=== PATIENT | female | born 1940 | race Caucasian/White ===

== ENCOUNTER 2017-10-02 19:21 | Emergency (ER) | payer MEDICARE, OTHER, SELFPAY ==
[2017-10-02 19:25] VITALS: BP 166/79; PULSE 84; RESP 16; TEMP 36.6; O2SAT 99; BMI 22.8
--- NOTE | 2017-10-02 19:54 | ED.RN ---
RN CALLED FOR EKG, NO OLD EKG'S IN MUSE
--- NOTE | 2017-10-02 19:58 | EKG12_ITS ---
Test Reason : JAW Blood Pressure : / mmHG Vent. Rate : 083 BPM Atrial Rate : 083 BPM P-R Int : 150 ms QRS Dur : 082 ms QT Int : 364 ms P-R-T Axes : 045 -07 019 degrees QTc Int : 427 ms Normal sinus rhythm Normal ECG Confirmed by PRATIBHA GOMEZ ([id number]), marketing editor TE SALDANA ([id number]) on 10/06/2017 10:18:07 AM Referred By: THA Confirmed By:PRATIBHA GOMEZ
--- NOTE | 2017-10-02 19:58 | RAD_ITS ---
STUDY: X-RAY CHEST REASON FOR EXAM: Female, 77 years old. Right-sided neck, ear, and jaw pain since Friday night TECHNIQUE: PA and lateral views of the chest. COMPARISON: None. FINDINGS: monitoring analyst leads are present. The lungs are clear and expanded. There is no demonstrated pleural abnormality. Normal size heart. Normal mediastinum and alli. Normal visualized pulmonary arteries. There are calcified plaques of the thoracic aorta. The bones are osteopenic. There is an increased thoracic kyphosis. There is diffuse thoracic endplate spondylosis. Normal visualized ribs, clavicles, and shoulders. There is no demonstrated abnormality of the visualized soft tissue structures of the upper abdomen. RAD/Chest PA and Lateral IMPRESSION: Calcified plaques of the thoracic aorta. Generalized osteopenia. Diffuse endplate spondylosis of the thoracic spine. Increased thoracic kyphosis. No acute cardiopulmonary disease process is seen. Electronically Signed: Kahlil Gibbs MD at 20:45 EDT , Service support ,
--- NOTE | 2017-10-02 20:01 | ED.DCSUM_ITS ---
- ER Visit Summary Date of Service: 10/02/17 Chief Complaint: Jaw pain History of Present Illness: The patient is a 77 F who states that on Friday she woke with a right-sided jaw/neck pain. Slightly worse with movement. Worse with opening and closing her jaw. She states the family notified her that this could be sign of a heart attack and wanted her evaluated. She denies any chest pain or shortness of breath. No sweating. She notes pain in the jaw line on the right with chewing. she notes some discomfort up in the shoulder but states that is chronic for her. No radicular symptoms. Physical Examination: Afebrile vital signs are stable Gen: Well-nourished well-developed Head: Normocephalic atraumatic Eyes: Perrl EOMI ENT: TMs clear no rhinorrhea moist mucous membranes Neck: Supple no lymphadenopathy no JVD mild tenderness palpation along the right trapezius CVS: Regular rate rhythm no murmurs normal S1-S2 Respiratory: No distress clear to auscultation bilaterally chest nontender Abdomen: Soft nontender nondistended normal bowel sounds no masses Back: Nontender Extremity: Nontender no edema Skin: Normal color no rash Neuro: alert orientated ?3 CN II-XII intact normal strength sensation reflexes gait cerebellar Psych: Normal affect normal mood Test Results: EKG shows a normal sinus rhythm at a rate of 83. CBC chemistries and troponin initially negative except for BUN of 21 creatinine 1.19. Chest x- ray negative C-spine films no acute. Emergency Department Course and Treatment: I believe this to be muscle skeletal nature. Patient will be discharged home follow-up with her doctors. Impression: 1. Jaw pain This note was generated with [employer] dictation software. It may contain incorrect words, spelling, and punctuation that were not noted in review of the chart prior to signing ED Disposition - Plan for ED Patient: Disposition: Home or Assisted Living Chief Complaint: Other, Pain/Inj Instructions: ED TMJ Syndrome Additional Instructions: Please call in the morning to arrange follow-up with your doctor.
[2017-10-02 20:24] LABS: Absolute Lymphocyte Count 1.33 X10^3/ul (0.83-4.51); Absolute Neutrophil Count 2.3 X10^3/uL (2.0-7.7); Basophil# 0.06 X10^3/uL; Basophil% 1.3 % (0-1); Eosinophil# 0.16 X10^3/uL; Eosinophils% 3.6 % (0-5); Hematocrit 35.5 % (37-47); Lymphocyte # 1.33 X10^3/ul (4.0); Lymphocyte % 29.7 % (19-41); Mean Corpuscular Hgb 29.9 pg (27.0-32.0); Mean Corpuscular Volume 96.5 fL (81-99); Mean Platelet Vol. 8.5 fl (6.2-12.0); Monocyte# 0.61 X10^3/uL; Monocyte% 13.6 % (0-10); Neutrophil # 2.32 X10^3/uL (2.7-7.7); Neutrophil % 51.8 % (47-70); Platelet Count 375 K/mm3 (150-450); RBC Distribution Width CV 13.3 % (11.6-14.6); RBC Distribution Width SD 46.4 fl (35.1-43.9); Red Blood Count 3.68 M/mm3 (4.2-5.4); White Blood Count 4.5 K/mm3 (4.4-11.0)
--- NOTE | 2017-10-02 20:25 | RAD_ITS ---
STUDY: X-RAY - CERVICAL SPINE REASON FOR EXAM: Female, 77 years old. Right-sided neck pain TECHNIQUE: 6 view(s) of the cervical spine were obtained. COMPARISON: None FINDINGS: Normal anterior atlantoaxial articulation. Normal odontoid process. Normal cervical lordosis. Normal vertebral bodies and endplates. Normal disc space heights. The soft tissue structures are unremarkable. RAD/Cerv Spine 2 or 3 Views IMPRESSION: Normal x-ray examination of the visualized cervical spine. Electronically Signed: Kahlil Gibbs MD at 20:44 EDT , Service support ,
[2017-10-02 20:26] LABS: POSITIVE COUNT NO; POSITIVE DIFFERENTIAL NO; POSITIVE MORPHOLOGY NO
[2017-10-02 20:40] LABS: Anion Gap 3 (5-15); BUN 29 mg/dL (7-18); BUN/Creat Ratio 24.4 RATIO (10-20); Calcium,Total 9.9 mg/dL (8.5-10.1); Chloride 103 mmol/L (98-107); Creatinine, Serum 1.19 mg/dL (0.55-1.02); EST Glomerular Filtration Rate 46 mL/min (>60); Est Glom Filt Rate - Afr Amer 56 mL/min (>60); Estimated Creatinine Clearance 28.93 ml/min; Glucose 105 mg/dL (74-106); Potassium 4.8 mmol/L (3.5-5.1); Sodium Level 138 mmol/L (136-145)
[2017-10-02 21:52] VITALS: BP 119/90; PULSE 80; RESP 16; O2SAT 98
== END 2017-10-02 21:53 | disposition home or self-care (01) ==
PROVIDERS: Emergency Provider Emergency Medicine; Family Provider Physician Assistant; PCP Physician Assistant
DX: R68.84 Jaw pain (principal); M54.2 Cervicalgia; I10 Essential (primary) hypertension; M19.90 Unspecified osteoarthritis, unspecified site; Z87.19 Personal history of other diseases of the digestive system
CPT/HCPCS: 71046; 72040; 80048; 84484; 85025; 93005; 99285; A4216

== ENCOUNTER 2018-09-24 12:49 | Emergency (ER) | payer MEDICARE, SELFPAY ==
[2018-09-24 12:50] VITALS: BP 138/67; PULSE 89; RESP 16; TEMP 36.6; O2SAT 97; BMI 23.4
--- NOTE | 2018-09-24 14:32 | ED.DCSUM_ITS ---
- ER Visit Summary Date of Service: 09/24/18 Chief Complaint: UTI History of Present Illness: The patient is a 78 F here for a UTI. The patient was diagnosed on September 19. This showed Enterococcus faecalis which was sensitive to ampicillin and Macrobid. The patient was treated with Macrobid. She started treatment several days ago. Patient developed a rash later the same day after starting Macrobid. She says that she had a rash on her legs and trunk. Non- itchy and nonpainful. No fevers or systemic symptoms. Patient followed up with urgent care because of the rash. Advised that she would need to go to the hospital because of the antibiotic resistance and her presumed allergy. Physical Examination: Afebrile and vital signs unremarkable. Patient alert and oriented. No acute distress. Heart regular. Lungs clear. Abdomen soft. Lower extremities show petechial rash. Otherwise mucous membranes and conjunctive are normal. Skin is otherwise unremarkable. Test Results: None performed Emergency Department Course and Treatment: Culture was reviewed. It showed Enterococcus faecalis which was sensitive to Macrobid, vancomycin, and penicillin. I spoke with infectious disease. They advised treatment with amoxicillin at outpatient follow-up for the UTI. Regarding the rash, the patient is not on blood thinners. She does not have any other symptoms. The timing coincides with starting the antibiotic. She will discontinue the antibiotic. I advised that other things can cause this type of rash, and if she has any new or worsening issues, she should be evaluated. Patient declined any testing here today and would like to follow-up as an outpatient. Treatment Plan: As above Disposition: Discharge Impression: 1. UTI cystitis This note was generated with [employer] dictation software. It may contain incorrect words, spelling, and punctuation that were not noted in review of the chart prior to signing ED Disposition - Plan for ED Patient: Referrals: Jose G Harrington PA [Primary Care Provider] -
--- NOTE | 2018-09-24 14:32 | ED.DEP ---
ED Disposition - Plan for ED Patient: Instructions: ED UTI Cystitis Female Prescriptions: Amoxicillin 500 mg PO BID #17 tab Referrals: Jose G Harrington PA [Primary Care Provider] -
[2018-09-24 14:38] VITALS: BP 135/74; PULSE 68; RESP 15; O2SAT 98
== END 2018-09-24 14:40 | disposition home or self-care (01) ==
LOC: ED 14:19
PROVIDERS: Emergency Provider Emergency Medicine; Family Provider Physician Assistant; PCP Physician Assistant
DX: N30.90 Cystitis, unspecified without hematuria (principal); R21 Rash and other nonspecific skin eruption; Z79.82 Long term (current) use of aspirin; Z79.899 Other long term (current) drug therapy
CPT/HCPCS: 99283

== ENCOUNTER 2020-05-12 14:51 | Outpatient (RCR) | payer MEDICARE, SELFPAY | END 2020-05-12 23:59 | LOC: IMMUN 14:51 | PROVIDERS: PCP Physician Assistant; Referring Provider Family Medicine; Visit Provider Family Medicine | DX: Z23 Encounter for immunization (principal) | CPT/HCPCS: 0011A; 0012A; 91301 ==

== ENCOUNTER 2021-06-04 14:41 | Emergency (ER) | payer MEDICARE, SELFPAY ==
[2021-06-04 14:42] VITALS: BP 207/106; PULSE 83; RESP 17; TEMP 37.1; O2SAT 97; BMI 22.4
--- NOTE | 2021-06-04 14:50 | RAD_ITS ---
STUDY: X-RAY - LEFT SHOULDER REASON FOR EXAM: Female, 81 years old. FALL TECHNIQUE: 4 view(s) of the shoulder. COMPARISON: None. FINDINGS: Normal glenohumeral articulation. There is hypertrophic osteoarthrosis of the acromioclavicular joint with inferior osseous spur formation. Normal acromion. Normal humeral head and visualized proximal humerus. Decreased distance between the humeral head and the acromion suggestive of rotator cuff pathology. The soft tissue structures are unremarkable. Normal visualized pulmonary apex. RAD/Shoulder min 2 Views IMPRESSION: Hypertrophic osteoarthritis of the acromioclavicular joint especially in the undersurface of the acromion. Decreased distance between the acromion and humeral head suggestive of a rotator cuff pathology. Electronically Signed: Tobin José MD at 15:31 EST ,
--- NOTE | 2021-06-04 15:49 | CT_ITS ---
HISTORY: FALL, HEAD INJURY. TECHNIQUE: Multiple axial images were obtained of the brain without intravenous contrast. A radiation dose optimization technique was used for this scan. # of images incl. paperwork: 242. COMPARISON: None. FINDINGS: BRAIN PARENCHYMA:Multiple small foci and zones of low attenuation in the cerebral white matter most compatible with chronic small vessel ischemic gliosis. INTRACRANIAL HEMORRHAGE: No acute intracranial hemorrhage. CSF SPACES/MASS EFFECT: Diffuse atrophy with compensatory ventricular enlargement. No midline shift or other significant mass effect. ORBITS: Bilateral lens resections. CALVARIUM: Intact. Moderate left frontal scalp hematoma. PARANASAL SINUSES AND MASTOID AIR CELLS: Clear. CT/Brain/Head without Contrast IMPRESSION: No acute intracranial process identified. Chronic small vessel ischemic gliosis. Left frontal scalp hematoma. Individualized dose optimization techniques were used for this CT. at 1644 Reported and signed by: Ava Esqueda MD Electronically Signed: Ava Esqueda MD at 16:43 EST ,
--- NOTE | 2021-06-04 16:42 | EX.ED.GENINJ ---
HPI History of Present Illness Chief Complaint: Fall Detail of Chief Complaint: Blunt head trauma and left shoulder pain status post fall Informant: patient Onset/Context/Timing Onset: Today and Hours Mechanism/Context: Blunt Injury and Fall Location of pain/injuries: Left shoulder Location: Left-sided forehead and left shoulder Current Severity: Mild Maximum Severity: Moderate Worsened by: Shoulder pain is worse with movement Relieved by: ED adducted and internally rotated Associated Symptoms Associated Symptoms: Positive for Loss of function; Negative for Parasthesias, Weakness, Inability to ambulate, Loss of consciousness and Amnesia Length of loss of consciousness: Dazed Narrative Narrative: 1-year-old woman who presents after mechanical fall. She was walking with her girlfriend around the neighborhood. A bug flew into her face. She swatted at the bug. She states she lost her balance. She landed on her left side. She presents because of forehead contusion and left shoulder pain. She was dazed. She denies headache. She denies double vision, blurred vision or loss of vision. Denies ringing or ears decreased hearing. Denies neck pain. She denies paresthesia, anesthesia motors. She denies cardiac respiratory symptoms. Denies abdominal pain. She denies nausea or vomiting. She is not on anticoagulant. She is on a baby aspirin a day. She denies hematuria. Tetanus Immunization: 5-10 years Prior similar symptoms: No Recent Illness/Hospitalization: No PFSH PFSH Home Medications amoxicillin 500 mg PO BID #17 tab 09/24/18 [Rx Last Taken Unknown] aspirin 81 mg PO DAILY@0800 09/24/18 [History Last Taken Unknown] etodolac [Lodine] 400 mg PO BID 09/24/18 [History Last Taken Unknown] nitrofurantoin monohyd/m-cryst 100 ng PO BID 09/24/18 [History Last Taken Unknown] hydrocodone-acetaminophen 1 tab PO Q6H PRN PRN 3 Days #10 tablet 06/04/21 [Rx Last Taken Unknown] Allergy/AdvReac Type Severity Reaction Status Date / Time nitrofurantoin Allergy Rash Verified 09/24/18 12:50 [From Macrobid] Social History (Updated 06/04/21 @ 16:[address] Mookie Almonte MD) household members: none Smoking Status: Never smoker substance use type: does not use ROS ROS ED Constitutional Constitutional ED: Denies chills, fever(s), subjective, sweats or weight loss Eyes Eyes: Denies blurry vision or change in vision ENT ENT ED: Denies ear pain, rhinorrhea or sore throat Cardiovascular Cardiovascular: Denies chest pain, palpitations or racing heartbeat Respiratory/Chest Respiratory/Chest: Denies cough, dyspnea or dyspnea on exertion Gastrointestinal Gastrointestinal: Denies abdominal pain, nausea or vomiting Genitourinary Genitourinary ED: Denies dysuria or hematuria Musculoskeletal Musculoskeletal: Reports other Details: Left shoulder pain ; Denies arthralgias, back pain, myalgias or neck pain Integumentary Reports other Details: Lesion left forehead ; Denies Abrasions or rash Neurologic Neurologic: Denies headache(s), paresthesias or weakness Endocrine Endocrinology: Denies polydipsia, polyphagia or polyuria Hematologic/Lymphatic Hematologic/Lymphatic: Denies easy bleeding or easy bruising EXAM Physical Exam Const Vital Signs: 06/04/21 14:42 Temperature 98.7 F Temperature Source Temporal Pulse Rate 83 Respiratory Rate 17 Blood Pressure 207/106 H Blood Pressure Mean 139 Pulse Ox 97 Oxygen Delivery Method Room Air Positive well nourished and well developed General Appearance ED: well developed and NAD HEENT Reports TM's clear HEENT Narrative: Ears normal. No septal deviation hematoma. No dental pathology. No evidence of malocclusion. trauma and tenderness Nose: Negative for septum abnormal Tympanic Membrane ED: Yes TM's clear Eyes PERRL and EOMs intact bilaterally General Eye ED: Yes other Other Details: There is no subconjunctival hemorrhage noted. Neck full ROM General: Negative for tenderness Resp normal respiratory effort and clear to auscultation bilaterally Cardio regular rhythm, S1 normal heart sound, S2 normal heart sound and no murmurs Rate: regular rate GI normal to inspection, nondistended, normoactive bowel sounds Palpation: soft and rebound tenderness present Back/Spine normal to inspection and no thoracic nor lumbar tenderness General Back: Negative for CVA tenderness Thoracic Spine / Upper Back: thoracic spinal tenderness Extremity Negative for full ROM Extremity Narrative: Patient is able to AB duct to approximately 40 degrees on the left side. Axillary, median, radial and ulnar function intact. Bicep, brachialis tricep reflex are 2+ and symmetric. General Extremety ED: Yes tenderness Neuro oriented x3, CN's II-XII intact bilaterally and no focal motor deficits Neuro Narrative: Negative clonus or Babinski sign. Sensorium / Orientation: alert Plantar Reflex: Downgoing: bilateral Psych mental status grossly normal and thought process normal Skin no rashes or lesions noted and No no wounds Skin Narrative: Contusion forehead MDM MDM MDM Narrative Medical decision making narrative: Since the patient is greater than 81 years old dazed per the [place] CT head rule imaging required to rule out intracranial bleed. CT of the head reveals no evidence of intracranial bleed i.e. subdural, epidural, subarachnoid hemorrhage or contusion. There is no skull fracture. There is no fluid noted in the sinuses. X-ray of the left shoulder reveals significant arthropathy with no obvious fracture. The interpretation by radiology was noted. Clinically patient has a rotator cuff tear. Radiography Diagnostic Testing: Clinical Impression(s) from Imaging Studies Shoulder X-Ray 06/04/21 14:50 IMPRESSION: Hypertrophic osteoarthritis of the acromioclavicular joint especially in the undersurface of the acromion. Decreased distance between the acromion and humeral head suggestive of a rotator cuff pathology. 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 Prescriptions: New hydrocodone-acetaminophen [hydrocodone-acetaminophen] 1 TABLET tablet 1 tab PO Q6H PRN PRN (Reason: Pain) 3 Days Qty: 10 RF: 0 No Action aspirin 81 MG tablet,chewable 81 mg PO DAILY@0800 RF: 0 etodolac [Lodine] 400 MG tablet 400 mg PO BID RF: 0 nitrofurantoin monohyd/m-cryst 100 capsule 100 ng PO BID RF: 0 amoxicillin 500 MG tablet 500 mg PO BID Qty: 17 RF: 0 Primary Care Provider: Jose G Harrington Referrals: Suresh Edwards MD [NON-STAFF] - As soon as possible (Clinically patient has a complete rotator cuff tear) Jose G Harrington PA [Primary Care Provider] - Disposition Disposition: Home, Self Care
[2021-06-04 17:15] VITALS: RESP 16
--- NOTE | 2021-06-05 12:10 | CASEMGMT ---
JESIKA SHEPARD ED follow-up: Date of ER visit: 06/04/2021 Presenting ER complaint: Fall JESIKA SHEPARD placed call to patient's telephone number listed on demographics and patient answered. JESIKA SHEPARD introduced self and role at [facility]. Patient reports a little sore but pain not bad today and taking prescription medication as directed. Patient reports she is walking okay and actually feels better when up and moving versus when she is at rest and sitting. Patient lives alone but states she has friends and children who are looking after her. Follow-up appointment scheduled for 06/07, per patient. Patient instructed on ice use and voices understanding. Patient denies questions or concerns and expressed appreciation for follow-up call. JESIKA Lemus CM
== END 2021-06-04 17:56 | disposition home or self-care (01) ==
PROVIDERS: Emergency Provider Emergency Medicine; PCP Physician Assistant; Visit Provider Emergency Medicine
DX: S00.03XA Contusion of scalp, initial encounter (principal); S06.9X9A Unspecified intracranial injury with loss of consciousness of unspecified duration, initial encounter; M75.122 Complete rotator cuff tear or rupture of left shoulder, not specified as traumatic; W19.XXXA Unspecified fall, initial encounter; Y93.01 Activity, walking, marching and hiking; Z79.82 Long term (current) use of aspirin; Z79.899 Other long term (current) drug therapy
CPT/HCPCS: 70450; 73030; 99282

== ENCOUNTER 2022-04-07 20:57 | Emergency (ER) | payer MEDICARE, SELFPAY ==
[2022-04-07 20:57] VITALS: BP 181/105; PULSE 78; RESP 14; TEMP 36.6; O2SAT 98; BMI 23.0
--- NOTE | 2022-04-07 21:09 | CT_ITS ---
STUDY: CT BRAIN WITHOUT CONTRAST REASON FOR EXAM: Female, 82 years old. head trauma RADIATION DOSAGE (If Supplied By Facility): CTDIvol = ( 44.99 ) mGy, DLP = ( 812.98 ) mGycm TECHNIQUE: Transaxial CT imaging of the brain was performed without administration of intravenous contrast material. Individualized dose optimization techniques were used for this CT. COMPARISON: CT brain noncontrast 06/04/2021 FINDINGS: Normal soft tissue structures. Normal calvarium. Normal size ventricles x-ray and extra-axial spaces for the patient''s age. There are areas of decreased attenuation within the white matter tracts of the supratentorial brain, consistent with microvascular disease changes. Normal basal ganglia and thalami. Normal brainstem. Normal cerebellum. There is no intracranial hemorrhage. There are no findings of an acute ischemic infarction. Normal visualized paranasal sinuses. The bilateral mastoid air cells and ossicles are unopacified. Intracranial arteriosclerosis of the carotid, basilar and vertebral arteries. CT/Brain/Head without Contrast IMPRESSION: Chronic involutional changes of the brain. There is no acute intracranial pathology. There is no significant interval change. Electronically Signed: Maria Guadalupe Ulloa MD at 21:38 EST Reading Location ID and State: , Service support ,
--- NOTE | 2022-04-07 21:10 | EDS_ITS ---
HPI HPI - Fall History of Present Illness Chief Complaint: Fall Detail of Chief Complaint: Fall with head injury. 10 minutes of confusion since resolved. Informant: patient and family Occured/Mechanism Occurred: Today and Hours Mechanism/Context: Yes slip Usually ambulates: Without assistance Pain/Injury Pain Location: head Current Severity: Mild Maximum Severity: Mild Associated Symptoms Associated Symptoms: Negative for Parasthesias, Weakness, Loss of function, Inability to ambulate, Loss of consciousness or Amnesia Narrative Narrative: 82-year-old female currently on aspirin no significant past medical history. Was at her son's today. Was going up steps she had slippers on did not sit for a while since she slipped fell backwards up 1 step hit her head on the floor. Son states she was not knocked out. But she was confused for about 10 minutes. That is since resolved. She denies any significant headache. She denies any neck pain. She denies any other injuries. She has not vomited. She is on no other blood thinners besides aspirin. Prior similar symptoms: Yes Recent Illness/Hospitalization: No PFSH PFSH Medical History (Updated 04/07/22 @ 22:[address] Jumana Thompson MD) CKD (chronic kidney disease), stage III Fe deficiency anemia Osteoarthritis Medical History no medical history no medical history Home Medications amoxicillin 500 mg tablet 500 mg PO BID #17 tabs 09/24/18 [Rx Last Taken Unknown] aspirin 81 mg chewable tablet 81 mg PO DAILY@0800 09/24/18 [History Last Taken Unknown] etodolac 400 mg tablet (Lodine) 400 mg PO BID 09/24/18 [History Last Taken Unknown] nitrofurantoin monohydrate/macrocrystals 100 mg capsule 100 ng PO BID 09/24/18 [History Last Taken Unknown] hydrocodone-acetaminophen 5-325mg 5mg-325mg 1 tab PO Q6H PRN PRN Pain 3 days #10 TABLETS 06/04/21 [Rx Last Taken Unknown] Allergy/AdvReac Type Severity Reaction Status Date / Time nitrofurantoin Allergy Rash Verified 04/07/22 21:00 [From Macrobid] Surgical History (Updated 04/07/22 @ 21:25 by Sarabjit Bee) Hx of tonsillectomy Social History (Updated 04/07/22 @ 22:[address] Jumana Thompson MD) household members: none Smoking Status: Never smoker alcohol intake: never substance use type: does not use ROS ROS ED ROS Narrative No recent illness. Review of Systems ROS Unobtainable: Denies due to encephalopathy Constitutional Constitutional ED: Denies chills or fever(s) Eyes Eyes: Denies blurry vision ENT ENT ED: Denies ear pain Cardiovascular Cardiovascular: Denies chest pain Respiratory/Chest Respiratory/Chest: Denies cough or dyspnea Gastrointestinal Gastrointestinal: Denies abdominal pain Genitourinary Genitourinary ED: Denies dysuria or hematuria Musculoskeletal Musculoskeletal: Denies arthralgias Integumentary Denies abscess Neurologic Neurologic: Denies headache(s) Psychiatric Psychiatric: Denies anxiety Endocrine Endocrinology: Denies polydipsia Hematologic/Lymphatic Hematologic/Lymphatic: Denies easy bleeding Allergic/Immunologic Allergic/Immunologic ED: Denies mouth swelling or tongue swelling EXAM Physical Exam Narrative Exam Narrative: 82-year-old female no acute distress. Vital signs are stable afebrile. Pulse ox 98% on room air no signs hypoxia. She does not look septic or toxic nor dehydrated. She is awake and alert. H EENT exam pupils round reactive light his motions are intact. Pupils are about 2 mm bilaterally. No facial trauma. Scalp nontender. No hematoma. No laceration. C-spine nontender. Normal range of motion her neck. Trachea midline. Back and spine nontender. No signs of trauma. Lungs clear equal and symmetrical. Heart appears to be tachycardic and irregular.. Chest wall and ribs nontender. Abdomen soft nontender. Pelvic girdle intact. Moving all 4 extremities. Normal web offset press feeder strength. Normal dorsi plantar flexion. Normal range of motion. No deformities. Nontender. Neuro logically she is awake and alert. Answering questions and following commands. Currently neurologically her GCS is 15. She knows the holiday, month and year. She knows where she is at. She is acting normally. Const Vital Signs: 04/07/22 20:57 04/07/22 21:24 04/07/22 22:17 Temperature 97.8 F Temperature Source Temporal Pulse Rate 78 123 H Respiratory Rate 14 15 Respiratory Effort Normal Respiratory Depth Normal Respiratory Pattern Normal Blood Pressure 181/105 H 153/70 H Blood Pressure Mean 130 97 Pulse Ox 98 98 Oxygen Delivery Method Room Air Room Air Room Air 04/07/22 22:17 Temperature Temperature Source Pulse Rate Respiratory Rate Respiratory Effort Respiratory Depth Respiratory Pattern Blood Pressure Blood Pressure Mean Pulse Ox 95 Oxygen Delivery Method Room Air Positive well nourished and well developed; Negative for obese, cachectic, contractures or unkempt General Appearance ED: well developed and NAD; Negative for unkempt, cachectic or contractures Nutritional Appearance: Negative for cachectic or obese HEENT Reports normocephalic trauma; Negative for atraumatic, hematoma or tenderness Eyes PERRL and EOMs intact bilaterally General Eye ED: Negative for pale conjunctiva or scleral icterus Neck full ROM, no lymphadenopathy and supple General: Negative for tenderness Chest Wall inspection of chest normal and palpation of chest normal Chest: Negative for other Resp normal respiratory effort, no retractions and clear to auscultation bilaterally Effort and Inspection: Negative for pain with movement Auscultation: Negative for rales, rhonchi or wheezes Cardio S1 normal heart sound, S2 normal heart sound and no murmurs; Negative for regular rate or regular rhythm Cardio Narrative: Tachycardic and irregular. No history of A. fib. Rate: tachycardic; Negative for bradycardia Rhythm: Negative for abnormal rhythm GI non-tender, non-distended and no masses Inspection: Negative for abdominal distention Auscultation: normoactive bowel sounds Palpation: soft; Negative for guarding Back/Spine no CVA tenderness General Back: Negative for CVA tenderness Cervical Spine: Negative for cervical spine tenderness Thoracic Spine / Upper Back: Negative for ROM limited Lumbar Spine / Lower Back: Negative for lumbar spinal tenderness or paraspinal muscle tenderness Neuro oriented x3, CN's II-XII intact bilaterally, moves all extremities and no focal motor deficits Paul Coma Scale: document GCS findings Spontaneous Obeys Commands Oriented 15 Sensorium / Orientation: alert, oriented to person, oriented to place and oriented to time; Negative for orientation impaired, confused, lethargic or stuporous Motor Exam: strength 5/5 throughout Psych mental status grossly normal and thought process normal Appearance: Negative for unkempt Attitude: No agitated Mood & Affect: Negative for depressed, anxious or tearful Skin Lesions: no lesions Rashes: no rashes Trauma: Negative for abrasion, laceration or puncture MDM MDM MDM Narrative Medical decision making narrative: 82-year-old fell hit her head had about 10-minute episode of confusion per her son. Her neurologic exam currently is normal with a GCS of 15. She is awake and alert. Given her age fall and head trauma I will obtain a CAT scan of her brain. Her exam is unremarkable at this time. Questionable dysrhythmia on cardiac exam obtain an EKG. With the patient's EKG showed A. fib RVR I discussed with her and her son. She has no history of A. fib. She will have a cardiac work-up. She will be given IV Cardizem 20 mg. This appears to be new onset A. fib. Repeat exam at 10:40 PM patient spontaneously converted. She is in a sinus rhythm at about 86. Patient is doing well awake and alert. No complaints. I discussed all of her test results with her and her son at bedside. They understand a new diagnosis of A. fib. She will be discharged home to follow-up with her primary care provider that is physician assistant professor of art, Adal Harrington, with the [facility]. Lab Data Attestation: I reviewed the patient's lab results. Lab results narrative: CBC unremarkable white count 9. H&H [address] Platelets [address] of the brain showed chronic changes no acute bleed. Chemistry is unremarkable. Gap of 5. BUN and creatinine 19 and 1. Glucose 133. Troponin normal at 16. TSH is normal at 1.5. Labs: Laboratory Results - last 24 hr 04/07/22 04/07/22 21:55 21:55 WBC 9.5 RBC 4.16 L Hgb 13.6 Hct 40.7 MCV 97.8 MCH 32.7 H MCHC 33.4 RDW Std Deviation 44.9 H RDW Coeff of Dalton 12.4 Plt Count 305 MPV 8.6 Immature Gran % (Auto) 0.300 Neut % (Auto) 74.4 H Lymph % (Auto) 14.7 L [place] % (Auto) 7.6 Eos % (Auto) 1.9 Baso % (Auto) 1.1 H Absolute Neuts (auto) 7.1 Absolute Lymphs (auto) 1.40 Nucleated RBC % 0 Sodium 142 Potassium 3.9 Chloride 107 Carbon Dioxide 30.0 Anion Gap 5 BUN 19 H Creatinine 1.01 Estim Creat Clear Calc 29.78 Est GFR (MDRD) Af Amer 67 Est GFR (MDRD) Non-Af 56 L BUN/Creatinine Ratio 18.8 Glucose 133 H Calcium 8.9 Troponin I High Sens 16 TSH 1.51 Radiography Diagnostic Testing: Clinical Impression(s) from Imaging Studies Brain CT 04/07/22 21:09 IMPRESSION: Chronic involutional changes of the brain. There is no acute intracranial pathology. There is no significant interval change. Electronically Signed: Maria Guadalupe Ulloa MD at 21:38 EST Reading Location ID and State: , Service support , Rhythm Strip Rhythm Strip: A-fib Rate: 152 Ectopy: None EKG Initial EKG: Attestation: I personally reviewed and interpreted this EKG as follows: Interpretation: Atrial Fibrillation Comments: A. fib with RVR with a rate of 152. No acute signs of [place]. Discharge Plan Triage Chief Complaint: Fall ED Provider: Ricki Reyes Dx/Rx/DC Orders Clinical Impression: Fall, Concussion, Atrial fibrillation, new onset Instructions: ED AFIB, ED Concussion Prescriptions: No Action aspirin 81 MG tablet,chewable 81 mg PO DAILY@0800 etodolac [Lodine] 400 MG tablet 400 mg PO BID nitrofurantoin monohyd/m-cryst 100 capsule 100 ng PO BID amoxicillin 500 MG tablet 500 mg PO BID Qty: 17 0RF hydrocodone-acetaminophen [hydrocodone-acetaminophen] 1 TABLET tablet 1 tab PO Q6H PRN PRN (Reason: Pain) 3 Days Qty: 10 0RF Primary Care Provider: Jose G Harrington Referrals: Jose G Harrington PA [Primary Care Provider] - 3-5 Days if not improving Activity Restrictions/Additional Instructions: Ice to scalp if you have any swelling. Hold your daily aspirin the next 2 days. Then you can restart it. Tylenol for pain. Return if severe headache, vomiting or not acting herself. Follow-up with your primary care provider for the diagnosis of new onset atrial fibrillation. Disposition Disposition: Home, Self Care
--- NOTE | 2022-04-07 22:00 | RAD_ITS ---
STUDY: X-RAY CHEST REASON FOR EXAM: Female, 82 years old. chest pain TECHNIQUE: Single AP portable view of the chest. COMPARISON: 10/02/2017 FINDINGS: There are superimposed monitor leads. The lungs are clear and expanded. There is no demonstrated pleural abnormality. Normal size heart. Normal mediastinum and alli. Normal visualized pulmonary arteries. There is atherosclerotic calcification of the aortic arch with tortuosity. There is demineralization of the osseous structures. There is degenerative osteoarthritis of the bilateral shoulders. There is no demonstrated abnormality of the visualized soft tissue structures of the upper abdomen. RAD/Chest 1 View (Portable) IMPRESSION: No acute cardiopulmonary disease. No significant interval change. Electronically Signed: Maria Guadalupe Ulloa MD at 23:00 EST Reading Location ID and State: , Service support ,
[2022-04-07 22:09] LABS: Absolute Neutrophil Count 7.1 X10^3/uL (2.0-7.7); Basophil% 1.1 % (0-1); Eosinophil# 0.18 X10^3/uL; Eosinophils% 1.9 % (0-5); Hematocrit 40.7 % (37-47); Hemoglobin 13.6 g/dL (12.0-15.0); Lymphocyte % 14.7 % (19-41); Mean Corp Hgb Conc 33.4 g/dL (32-36); Mean Corpuscular Hgb 32.7 pg (27.0-32.0); Mean Corpuscular Volume 97.8 fL (81-99); Mean Platelet Vol. 8.6 fl (6.2-12.0); Monocyte# 0.72 X10^3/uL; Monocyte% 7.6 % (0-10); NRBC Flagged by Analyzer 0 % (0-5); Neutrophil # 7.08 X10^3/uL (2.7-7.7); Neutrophil % 74.4 % (47-70); Platelet Count 305 K/mm3 (150-450); RBC Distribution Width CV 12.4 % (11.6-14.6); RBC Distribution Width SD 44.9 fl (35.1-43.9); Red Blood Count 4.16 M/mm3 (4.2-5.4); White Blood Count 9.5 K/mm3 (4.4-11.0)
[2022-04-07] MEDS: dilTIAZem 25 MG/5 ML Vial 20 MG IV BOLUS (22:14)
[2022-04-07 22:17] VITALS: BP 153/70; PULSE 123; RESP 15; O2SAT 95; O2SAT 98
[2022-04-07 22:35] LABS: Anion Gap 5 (5-15); BUN 19 mg/dL (7-18); BUN/Creat Ratio 18.8 RATIO (10-20); Calcium,Total 8.9 mg/dL (8.5-10.1); Chloride 107 mmol/L (98-107); Creatinine, Serum 1.01 mg/dL (0.55-1.02); EST Glomerular Filtration Rate 56 mL/min (>60); Est Glom Filt Rate - Afr Amer 67 mL/min (>60); Estimated Creatinine Clearance 29.78 ml/min; Glucose 133 mg/dL (74-106); Potassium 3.9 mmol/L (3.5-5.1); Sodium Level 142 mmol/L (136-145); Thyroid Stim Hormone (TSH) 1.51 uIU/mL (0.358-3.74); Troponin-I HS 16 pg/mL (3.0-54.0)
[2022-04-07 23:20] VITALS: BP 135/73; PULSE 83; RESP 15; O2SAT 98
== END 2022-04-07 23:21 | disposition home or self-care (01) ==
PROVIDERS: Emergency Provider Emergency Medicine; PCP Physician Assistant; Visit Provider Emergency Medicine
DX: S06.0X0A Concussion without loss of consciousness, initial encounter (principal); I48.91 Unspecified atrial fibrillation; N18.30 Chronic kidney disease, stage 3 unspecified; R41.0 Disorientation, unspecified; D50.9 Iron deficiency anemia, unspecified; M19.90 Unspecified osteoarthritis, unspecified site; W10.9XXA Fall (on) (from) unspecified stairs and steps, initial encounter; Z79.82 Long term (current) use of aspirin; Z79.899 Other long term (current) drug therapy
CPT/HCPCS: 70450; 71045; 80048; 84443; 84484; 85025; 93005; 96374; 99284; A4216

== ENCOUNTER 2024-08-16 15:40 | Emergency (ER) | payer MEDICARE, SELFPAY ==
[2024-08-16] VITALS (7 sets, daily range): BP systolic 151–186; BP diastolic 72–104; PULSE 67–97; RESP 14–18; TEMP 36.2–36.6; O2SAT 95–100; BMI 23.1
--- NOTE | 2024-08-16 17:06 | CT_ITS ---
PROCEDURE: CT BRAIN WITHOUT CONTRAST REASON FOR EXAM: ALTERED LEVEL OF CONSCIOUSNESS. TECHNIQUE: Head CT without intravenous contrast. Coronal and Sagittal reconstruction series were provided. One or more dose reduction techniques were used (e.g., Automated exposure control, adjustment of the mA and/or kV according to patient size, use of iterative reconstruction technique. RADIATION DOSE SUMMARY: DLP: 796.11 mGycm COMPARISON: 04/07/2022 FINDINGS: Cerebrum: No intraparenchymal hemorrhage. No abnormal areas of encephalomalacia. No mass effect or midline shift. Central white matter and subcortical diffuse hypoattenuation. Ventricles and cisterns: Appropriate size for patient's age. Age-appropriate senescent change. Extra-axial fluid: Unremarkable. Posterior fossa: Cerebellar atrophic changes. No hemorrhage. Paranasal sinuses: Normal. Vasculature: Vertebrobasilar atherosclerotic calcific disease. Atherosclerotic calcific disease of the carotid siphons. Mastoid air cells: unremarkable. Calvarium: Unremarkable. Soft tissues: Unremarkable. . CT/Brain/Head without Contrast IMPRESSION: 1. No acute intracranial abnormalities. 2. Chronic age-related microvascular ischemic changes. 3. Age-related senescent changes. 4. Atherosclerotic calcific disease. Reading Location: [facility]
--- NOTE | 2024-08-16 17:07 | EKG12_ITS ---
Test Reason : Blood Pressure : */* mmHG Vent. Rate : 100 BPM Atrial Rate : * BPM P-R Int : * ms QRS Dur : 76 ms QT Int : 340 ms P-R-T Axes : * -9 8 degrees QTcB Int : 438 ms Atrial fibrillation Abnormal ECG Confirmed by Swapnil Balderrama ([id number]), editorial cartoonist LOVELY RAMSEY ([id number]) on 08/20/2024 11:54:05 AM Referred By: TABBY Confirmed By: Swapnil Balderrama
--- NOTE | 2024-08-16 17:08 | EX.ED.DYSGE1 ---
HPI History of Present Illness Chief Complaint: Confusion Informant: patient and family Onset/Context/Timing Onset: Today Context: Gradual Onset Timing: Continuous Current Severity: Mild Maximum Severity: Mild Narrative Narrative: 84-year-old female history of chronic kidney disease, UTIs and hypertension. Per the family today she had brain fog. She seemed confused and slightly disoriented. She was at the store when she came home she could not use the keypad to get her garage. Denies any falls or head trauma. No headache. No recent illness. Denies nausea, vomiting, diarrhea or fever. No recent dysuria. She has had episodes of confusion before that this is more pronounced. Prior similar symptoms: Yes Recent Illness/Hospitalization: No PFSH PFSH Medical History Osteoarthritis CKD (chronic kidney disease), stage III Fe deficiency anemia Home Medications ?Medication ?Instructions ?Recorded ?Last Taken ?Type lisinopril 30 mg tablet 30 mg PO DAILY 08/16/24 08/16/24 History multivitamin (Daily Multi-Vitamin 1 tab PO DAILY 08/16/24 08/16/24 History tablet) Allergy/AdvReac Type Severity Reaction Status Date / Time nitrofurantoin (From Allergy Rash Verified 08/16/24 15:42 Macrobid) Surgical History Hx of tonsillectomy Social History household members: none Smoking Status: Never smoker alcohol intake: never substance use type: does not use ROS ROS ED ROS Narrative Denies recent illness. Constitutional Constitutional ED: Denies chills or fever(s) Eyes Eyes: Denies blurry vision ENT ENT ED: Denies ear pain Cardiovascular Cardiovascular: Denies chest pain Respiratory/Chest Respiratory/Chest: Denies cough or dyspnea Gastrointestinal Gastrointestinal: Denies abdominal pain Genitourinary Genitourinary ED: Denies dysuria or hematuria Musculoskeletal Musculoskeletal: Denies arthralgias Integumentary Denies abscess Psychiatric Psychiatric: Denies anxiety Endocrine Endocrinology: Denies cold intolerance Hematologic/Lymphatic Hematologic/Lymphatic: Reports none Allergic/Immunologic Allergic/Immunologic ED: Denies mouth swelling, tongue swelling or urticaria EXAM Physical Exam Narrative Exam Narrative: 84-year-old female vital signs are stable afebrile. She does not look septic toxic she is in no distress. Son and I believe [id number] are sitting at bedside. Pulse ox 100% on room air no signs hypoxia. H EENT exam pupils round reactive light. Mytrex membranes. No trauma to her face or head. No facial droop. Normal speech. Neck nontender. Lungs clear to auscultation bilateral. Heart A-fib rate about 90. Chest wall and ribs nontender. Abdomen soft nontender. Moving all 4 extremities. Calves are nontender without edema or cords. Normal digital x ray service engineer strength. Normal dorsi and plantarflexion. Fingertip to nose within normal limits. No drift of upper or lower extremities. Neurologically she is awake alert. Answering questions and following commands. NIH 0. She knew month, year, president and she knows she is in the hospital. Const Vital Signs: 08/16/24 15:42 08/16/24 16:56 08/16/24 17:00 Temperature 97.2 F L Temperature Source Temporal Pulse Rate 91 67 85 Respiratory Rate 18 14 16 Blood Pressure 164/104 H Blood Pressure Mean 124 Pulse Ox 100 95 Oxygen Delivery Method Room Air Room Air 08/16/24 18:00 08/16/24 19:00 08/16/24 20:00 Temperature Temperature Source Pulse Rate 97 93 Respiratory Rate 18 18 Blood Pressure 186/99 H 151/93 H 164/89 H Blood Pressure Mean 128 112 114 Pulse Ox 97 96 Oxygen Delivery Method Room Air Room Air Positive well nourished and well developed; Negative for obese, cachectic, contractures or unkempt General Appearance ED: well developed and NAD; Negative for unkempt, cachectic, contractures, cyanotic, diaphoretic or pallor Nutritional Appearance: Negative for cachectic or obese HEENT Reports moist mucous membranes; Denies dry mucous membranes Negative for trauma or tenderness Mouth ED: No dry mucous membranes Mouth: No dry mucous membranes Eyes PERRL and EOMs intact bilaterally General Eye ED: Negative for pale conjunctiva, scleral icterus or other Neck no lymphadenopathy, supple and no JVD Chest Wall inspection of chest normal and palpation of chest normal Resp normal respiratory effort and clear to auscultation bilaterally Effort and Inspection: Negative for retractions Auscultation: Negative for rales, rhonchi or wheezes Cardio Negative for regular rate Rate: other Rhythm: abnormal rhythm GI normal to inspection, nondistended, normoactive bowel sounds, non-tender, non-distended and no masses Palpation: soft; Negative for tender, guarding or rebound tenderness present Back/Spine no CVA tenderness Extremity normal to inspection General Extremety ED: Negative for edema or tenderness General Extremity: Negative for edema Neuro oriented x3 and CN's II-XII intact bilaterally Sensorium / Orientation: alert; Negative for orientation impaired, lethargic or stuporous Motor Exam: strength 5/5 throughout Psych mental status grossly normal Appearance: Negative for unkempt Attitude: No agitated Mood & Affect: Negative for depressed, anxious or tearful Skin no rashes or lesions noted, no wounds and skin turgor normal General Skin Exam: elasticity normal; Negative for jaundice or pallor Lesions: No lesion noted Rashes: No rashes noted Trauma: Negative for abrasion Wounds: Negative for wounds noted MDM MDM MDM Narrative Medical decision making narrative: 84-year-old female confused today. Currently her exam is benign. She is awake and alert. NIH is 0. CAT scan and labs are pending. Differential includes stroke or TIA. Dehydration or infection versus other etiologies. Electrolyte abnormalities. Repeat exam patient doing quite well at 8:25 PM. Lengthy discussion with her and her family. We went over her labs are basically unremarkable. Her neurologic exam is unchanged. They are comfortable with her being discharged home. Outpatient follow-up for further evaluation and cognitive testing. We discussed the option of admission for an MRI which they deferred at this time. History & Record Review Discussion w/independent historian: Patient and Family Additional record(s) reviewed:: Prior inpatient record, Prior outpatient record, Prior ED visit and Prior labs Lab Data Attestation: I reviewed the patient's lab results. Lab results narrative: CBC shows a white count of 6 H&H of 13 and 40. Platelets 277. Electrolytes show sodium 141. Gap 10. Normal BUN and creatinine of 17 and 1. Glucose 106. Liver enzymes are normal. Urinalysis shows no nitrites. 0 red and white cells. No bacteria. It is negative also. Labs: Laboratory Results - last 24 hr 08/16/24 08/16/24 16:47 17:24 WBC 6.2 RBC 4.16 L Hgb 13.0 Hct 40.1 MCV 96.4 MCH 31.3 MCHC 32.4 RDW Std Deviation 45.6 H RDW Coeff of Dalton 12.9 Plt Count 277 MPV 9.0 Immature Gran % (Auto) 0.200 Neut % (Auto) 64.2 Lymph % (Auto) 23.7 [place] % (Auto) 8.9 Eos % (Auto) 1.5 Baso % (Auto) 1.5 H Absolute Neuts (auto) 4.0 Absolute Lymphs (auto) 1.46 Nucleated RBC % 0 Sodium 141 Potassium 4.5 Chloride 105 Carbon Dioxide 26.3 Anion Gap 10 BUN 17 Creatinine 1.00 Estim Creat Clear Calc 29.01 L Est GFR (MDRD) Non-Af 55 L BUN/Creatinine Ratio 17.0 Glucose 106 H Calcium 9.9 Total Bilirubin 0.20 AST 29 ALT 21 Alkaline Phosphatase 80 Total Protein 7.2 Albumin 4.2 Globulin 3.0 Albumin/Globulin Ratio 1.4 Urine Color Straw Urine Clarity Clear Urine pH 8.0 Ur Specific [place] 1.010 Urine Protein 15 H Urine Glucose (UA) Normal Urine Ketones Negative Urine Occult Blood 25 H Urine Nitrite Negative Urine Bilirubin Negative Urine Urobilinogen Normal Ur Leukocyte Esterase 25 H Urine RBC 0-5 SEEN Urine WBC 0-5 SEEN Ur Squamous Epith Cells 0-5 SEEN Urine Bacteria 0 SEEN Urine Mucus 0 SEEN Radiography Chest X-Ray - ED: 2 View, Read by ED Physician, Heart, Lungs, Mediastinum, Bony Structures, No Acute Disease and Chronic Changes Diagnostic Testing: Clinical Impression(s) from Imaging Studies Brain CT 08/16/24 17:06 IMPRESSION: 1. No acute intracranial abnormalities. 2. Chronic age-related microvascular ischemic changes. 3. Age-related senescent changes. 4. Atherosclerotic calcific disease. [facility] X-Ray 08/16/24 17:48 IMPRESSION: NO ACUTE FINDINGS. Reading [facility] . Chest x-ray, 2 views, AP and lateral, interpreted by by myself and radiology shows no acute findings. Chronic changes. Normal cardiac silhouette. Normal lung snyder. Rhythm Strip Rhythm Strip: Atrial fibrillation Rate: 10 Ectopy: None EKG Initial EKG: Attestation: I personally reviewed and interpreted this EKG as follows: Interpretation: Atrial Fibrillation Comments: A-fib rate of 100. No acute signs of [place] or ischemia. Discharge Plan Triage Chief Complaint: Confusion ED Provider: Ricki Reyes Dx/Rx/DC Orders Clinical Impression: Transient confusion, History of atrial fibrillation Instructions: ED Confusion Prescriptions: No Action lisinopril 30 mg tablet 30 mg PO DAILY multivitamin [Daily Multi-Vitamin] Tablet 1 tab PO DAILY Primary Care Provider: Tasha Deutsch Referrals: Jose G Harrington PA [Non-Staff] - As soon as possible Activity Restrictions/Additional Instructions: Plenty of fluids and rest. Hold off on driving for the time being Follow-up with your primary care provider for further evaluation. Cognitive testing. If she continues to have confusion MRI. Any problems or if she is doing worse just return to the emergency department. Print Language: Danish Disposition Disposition: Home, Self Care
[2024-08-16] MEDS: 0.9% Normal Saline (500mL Bag) 500 ML 1000 ML IV (17:40)
[2024-08-16 17:42] LABS: Absolute Lymphocyte Count 1.46 X10^3/uL (0.83-4.51); Basophil# 0.09 X10^3/uL; Basophil% 1.5 % (0-1); Eosinophil# 0.09 X10^3/uL; Eosinophils% 1.5 % (0-5); Hematocrit 40.1 % (37-47); Lymphocyte # 1.46 X10^3/ul (0.83-4.51); Lymphocyte % 23.7 % (19-41); Mean Corp Hgb Conc 32.4 g/dL (32-36); Mean Corpuscular Hgb 31.3 pg (27.0-32.0); Mean Corpuscular Volume 96.4 fL (81-99); Monocyte# 0.55 X10^3/uL; Monocyte% 8.9 % (0-10); NRBC Flagged by Analyzer 0 % (0-5); Neutrophil # 3.96 X10^3/uL (2.7-7.7); Neutrophil % 64.2 % (47-70); Platelet Count 277 K/mm3 (150-450); RBC Distribution Width CV 12.9 % (11.6-14.6); RBC Distribution Width SD 45.6 fl (35.1-43.9); Red Blood Count 4.16 M/mm3 (4.2-5.4); White Blood Count 6.2 K/mm3 (4.4-11.0)
--- NOTE | 2024-08-16 17:48 | RAD_ITS ---
PROCEDURE: CHEST PA AND LATERAL 08/16/2024 REASON FOR EXAM: ALOC TECHNIQUE: Frontal and lateral views of the chest. COMPARISON: 04/07/2022 FINDINGS: Hardware: None Heart: Heart size is mildly enlarged. Mediastinum: There are atherosclerotic calcifications of the thoracic aorta. Lungs: No focal consolidation. No pneumothorax. No pleural effusion. Bones: Degenerative changes are identified within the thoracic spine. RAD/Chest PA and Lateral IMPRESSION: NO ACUTE FINDINGS. [facility]
[2024-08-16 17:58] LABS: ALB/GLOB Ratio 1.4 RATIO (0.9-2.4); AST(SGOT) 29 U/L (<=31); Alanine Aminotransfer ALT/SGPT 21 U/L (<=34); Albumin, Serum 4.2 g/dL (3.4-4.8); Alkaline Phosphatase 80 U/L (35-104); Anion Gap 10 (5-15); BUN 17 mg/dL (4-19); Calcium,Total 9.9 mg/dL (7.6-11.0); Carbon Dioxide 26.3 mmol/L (21.0-32.0); Chloride 105 mmol/L (98-108); EST Glomerular Filtration Rate 55 (>60); Estimated Creatinine Clearance 29.01 ml/min (50-250); Glucose 106 mg/dL (70-99); Potassium 4.5 mmol/L (3.3-5.1); Protein, Total 7.2 g/dL (5.9-8.4); Sodium Level 141 mmol/L (133-145)
[2024-08-16 18:19] LABS: Bacteria 0 SEEN /hpf (None Seen); Mucous, Urine 0 SEEN /hpf (<or=2+)
[2024-08-16 18:24] LABS: Color, Urine Straw (Yellow); Glucose, Dipstick Normal (Normal); Ketone-Dipstick Negative (Negative); Leukocyte Esterase-Dipstick 25 /ul (Negative); Nitrite-Dipstick Negative (Negative); Occult Blood-Urine 25 /ul (Negative); Protein-Dipstick 15 mg/dl (Negative); Urine Bilirubin Dipstick Negative (Negative); Urine Clarity Clear (Clear); Urine Urobilinogen Normal (Normal)
[2024-08-16 19:04] LABS: Red Blood Cells-Urine 0-5 SEEN /hpf (0-5); Squamous Epithelial Cells - UA 0-5 SEEN /hpf (5-10); White Blood Cells 0-5 SEEN /hpf (0-5)
== END 2024-08-16 21:05 | disposition home or self-care (01) ==
PROVIDERS: Emergency Provider Emergency Medicine; PCP Clinical Nurse Specialist Adult Health; Visit Provider Emergency Medicine
DX: R41.0 Disorientation, unspecified (principal); N18.30 Chronic kidney disease, stage 3 unspecified; I12.9 Hypertensive chronic kidney disease with stage 1 through stage 4 chronic kidney disease, or unspecified chronic kidney disease
CPT/HCPCS: 96360; 96361; 99283; 70450; 71046; 80053; 81001; 85025; 93005; A4216

== ENCOUNTER 2024-08-18 09:50 | Inpatient (IN) | payer MEDICARE, SELFPAY ==
[2024-08-18] VITALS (10 sets, daily range): BP systolic 145–189; BP diastolic 72–101; PULSE 69–83; RESP 13–21; TEMP 36.2–36.6; O2SAT 96–100; BMI 24.0; BMI 20.9
--- NOTE | 2024-08-18 10:38 | EKG12_ITS ---
Test Reason : Blood Pressure : */* mmHG Vent. Rate : 72 BPM Atrial Rate : 72 BPM P-R Int : 152 ms QRS Dur : 82 ms QT Int : 410 ms P-R-T Axes : 28 -2 5 degrees QTcB Int : 448 ms Normal sinus rhythm Normal ECG Confirmed by Swapnil Balderrama ([id number]), associate editor LOVELY RAMSEY ([id number]) on 08/20/2024 12:21:07 PM Referred By: Confirmed By: Swapnil Balderrama
[2024-08-18 10:59] LABS: Absolute Lymphocyte Count 0.91 X10^3/uL (0.83-4.51); Absolute Neutrophil Count 6.6 X10^3/uL (2.0-7.7); Basophil# 0.11 X10^3/uL; Basophil% 1.3 % (0-1); Eosinophil# 0.06 X10^3/uL; Eosinophils% 0.7 % (0-5); Lymphocyte # 0.91 X10^3/ul (0.83-4.51); Lymphocyte % 10.9 % (19-41); Mean Corp Hgb Conc 32.5 g/dL (32-36); Mean Corpuscular Hgb 31.2 pg (27.0-32.0); Mean Corpuscular Volume 95.9 fL (81-99); Mean Platelet Vol. 9.1 fl (6.2-12.0); Monocyte# 0.63 X10^3/uL; Monocyte% 7.5 % (0-10); NRBC Flagged by Analyzer 0 % (0-5); Neutrophil # 6.64 X10^3/uL (2.7-7.7); Neutrophil % 79.2 % (47-70); Platelet Count 254 K/mm3 (150-450); RBC Distribution Width SD 45.8 fl (35.1-43.9); Red Blood Count 4.17 M/mm3 (4.2-5.4); White Blood Count 8.4 K/mm3 (4.4-11.0)
--- NOTE | 2024-08-18 11:04 | ED.VIS.STROK ---
HPI History of Present Illness Chief Complaint: Neuro S/Sx Informant: patient and family Narrative Narrative: 84-year-old female presenting to the emergency room out of concern for needing MRI. Patient was seen in the emergency room about 2 days ago with an episode of confusion where she could not figure out how to get her garage door open by pushing the button. Her workup was negative and is reported that she had an NIH of 0. There was discussion about admitting for a MRI but patient was discharged home after discussion with family. Another family member brings her in today stating that the patient continues to have episodes of confusion and now having difficulty with control on the right side of her arm and leg. They note some speech change. They note that today she was unable to relieve use the spoon to feed herself. They state instead of taking her pills with her right hand she is using her left hand. They note that she does not seem to walk as well with the right leg. Patient denies any vision change. She states she has a hard time finding certain words. Family notes that yesterday she went to converse with the neighbors and was very confused. Patient denies any cough or difficulty swallowing. Patient states that she fell using the bathroom last night but did not injure herself. [facility] Medical History Osteoarthritis CKD (chronic kidney disease), stage III Fe deficiency anemia Home Medications ?Medication ?Instructions ?Recorded ?Last Taken ?Type lisinopril 30 mg tablet 30 mg PO DAILY 08/16/24 08/18/24 History multivitamin (Daily Multi-Vitamin 1 tab PO DAILY 08/16/24 08/18/24 History tablet) Allergy/AdvReac Type Severity Reaction Status Date / Time nitrofurantoin (From Allergy Rash Verified 08/18/24 09:54 Macrobid) Surgical History Hx of tonsillectomy Social History household members: none Smoking Status: Never smoker alcohol intake: never substance use type: does not use ROS ROS ED Constitutional Constitutional ED: Denies chills, fever(s) or weight loss Eyes Eyes: Denies change in vision or diplopia ENT ENT ED: Denies ear pain, rhinorrhea or sore throat Cardiovascular Cardiovascular: Denies chest pain, orthopnea, palpitations or racing heartbeat Respiratory/Chest Respiratory/Chest: Denies cough, dyspnea or orthopnea Gastrointestinal Gastrointestinal: Denies abdominal pain, diarrhea, nausea or vomiting Genitourinary Genitourinary ED: Denies dysuria, hematuria or urinary frequency Musculoskeletal Musculoskeletal: Denies arthralgias or myalgias Integumentary Denies abscess or rash Neurologic Neurologic: Reports weakness and other Details: Confusion speech difficulty ; Denies headache(s) Psychiatric Psychiatric: Denies anxiety, depression, suicidal ideation or suicidal thoughts Endocrine Endocrinology: Denies polydipsia, polyphagia or polyuria Allergic/Immunologic Allergic/Immunologic ED: Denies mouth swelling, tongue swelling or urticaria EXAM Physical Exam Const Vital Signs: 08/18/24 09:54 08/18/24 10:52 08/18/24 11:00 Temperature 98 F Temperature Source Oral Pulse Rate 81 69 71 Respiratory Rate 15 14 14 Blood Pressure 187/89 H 165/72 H 152/87 H Blood Pressure Mean 121 103 108 Pulse Ox 100 99 Oxygen Delivery Method Room Air Room Air Room Air 08/18/24 12:36 08/18/24 13:00 08/18/24 14:00 Temperature Temperature Source Pulse Rate 78 83 79 Respiratory Rate 16 13 21 H Blood Pressure 179/85 H 189/79 H 181/101 H Blood Pressure Mean 116 115 127 Pulse Ox 96 Oxygen Delivery Method Room Air Room Air Positive well nourished and well developed General Appearance ED: well developed and NAD HEENT Reports normocephalic, head/scalp atraumatic and moist mucous membranes Eyes PERRL and EOMs intact bilaterally Neck no lymphadenopathy, supple and no JVD General: Negative for tenderness Resp normal respiratory effort and clear to auscultation bilaterally Cardio regular rate, regular rhythm and no murmurs GI normal to inspection, nondistended, normoactive bowel sounds and non-tender Palpation: soft Back/Spine no CVA tenderness and normal ROM Extremity normal to inspection General Extremety ED: Negative for edema General Extremity: Negative for edema Neuro oriented x3 and no sensory deficits noted Paul Coma Scale: document GCS findings Spontaneous Obeys Commands Oriented 15 Sensorium / Orientation: alert Motor Exam: strength 5/5 throughout Psych mental status grossly normal Mood & Affect: Negative for depressed or tearful Skin no rashes or lesions noted Skin Narrative: Small abrasion (less than half centimeter) to the dorsum of the right hand MDM MDM MDM Narrative Medical decision making narrative: Differential diagnosis includes stroke UTI sepsis dehydration electrolyte abnormalities acute kidney injury liver dysfunction pneumonia Patient's white count was 8.4 hemoglobin 13 platelet count of 254. Creatinine is 1 BUN of 27 urinalysis with 10-25 white cells 3+ bacteria positive nitrates positive leukocyte Estrace. This is a change from her urine specimen just 2 days ago. Urine toxicology and alcohol level was negative. My independent interpretation of the chest x-ray is no acute process. EKG is normal sinus rhythm at a rate of 72. Patient had blood cultures and urine culture sent. I will add on a lactic acid. We are also going to administer ceftriaxone for the UTI. Plan of care will be admission to hospital for treatment of UTI as well as MRI of brain to evaluate for the possibility of subacute stroke. Hospitalist requested CTA to be performed. This is positive for acute stroke that was not seen on the head CT on Friday. History & Record Review Discussion w/independent historian: Patient and Family Additional record(s) reviewed:: Prior ED visit and Prior labs Lab Data Attestation: I reviewed the patient's lab results. Labs: Laboratory Results - last 24 hr 08/18/24 08/18/24 08/18/24 10:50 11:35 12:35 WBC 8.4 RBC 4.17 L Hgb 13.0 Hct 40.0 MCV 95.9 MCH 31.2 MCHC 32.5 RDW Std Deviation 45.8 H RDW Coeff of [place] 13.0 Plt Count 254 MPV 9.1 Immature Gran % (Auto) 0.400 Neut % (Auto) 79.2 H Lymph % (Auto) 10.9 L [place] % (Auto) 7.5 Eos % (Auto) 0.7 Baso % (Auto) 1.3 H Absolute Neuts (auto) 6.6 Absolute Lymphs (auto) 0.91 Nucleated RBC % 0 PT 13.1 INR 1.0 APTT 24.6 Sodium 142 Potassium 4.3 Chloride 106 Carbon Dioxide 25.9 Anion Gap 11 BUN 27 H Creatinine 1.00 Estim Creat Clear Calc 31.63 L Est GFR (MDRD) Non-Af 55 L BUN/Creatinine Ratio 27.4 H Glucose 72 Lactic Acid < 1.0 Calcium 10.0 Total Bilirubin 0.34 Direct Bilirubin 0.13 AST 36 H ALT 24 Alkaline Phosphatase 82 Total Protein 7.6 Albumin 4.4 Globulin 3.2 Urine Color Yellow Urine Clarity Sl. Cloudy Urine pH 7.0 Ur Specific [place] 1.005 Urine Protein 30 H Urine Glucose (UA) Normal Urine Ketones Negative Urine Occult Blood 50 H Urine Nitrite Positive H Urine Bilirubin Negative Urine Urobilinogen Normal Ur Leukocyte Esterase 500 H Urine RBC 0 SEEN Urine WBC 10-25 SEEN Ur Squamous Epith Cells 0 SEEN Urine Bacteria 3+ Urine Mucus 0 SEEN Urine Opiates Screen NEGATIVE U Buprenorphine Qual NEGATIVE Ur Oxycodone Screen NEGATIVE Urine Methadone Screen NEGATIVE Urine Fentanyl Screen NEGATIVE Ur Barbiturates Screen NEGATIVE Ur Phencyclidine Scrn NEGATIVE Ur Amphetamines Screen NEGATIVE U Benzodiazepines Scrn NEGATIVE Urine Cocaine Screen NEGATIVE U Cannabinoids Screen NEGATIVE Ethyl Alcohol < 10.1 EKG Initial EKG: Attestation: I personally reviewed and interpreted this EKG as follows: Comments: Normal sinus rate of 72 bpm. Management Discussion w/another healthcare provider: Hospitalist (Dr Mar) and Radiologist Discharge Plan Dx/Rx/DC Orders Clinical Impression: Acute UTI, AMS (altered mental status), Stroke Disposition Disposition: Acute Care Hospital [facility] NIHSS NIHSS 1a. Level of Consciousness: 0 - Alert; keenly responsive 1b. LOC Questions: 0 - Answers BOTH questions correctly 1c. LOC Commands: 0 - Performs BOTH tasks correctly 2. Best Gaze: 0 - Normal 3. Visual: 0 - No visual loss 4. Facial Palsy: 0 - Normal symmetrical movements 5a. Left Arm: 0 - No drift; arm holds 90 (or 45) degrees for full 10 seconds 5b. Right Arm: 0 - No drift; arm holds 90 (or 45) degrees for full 10 seconds 6a. Left Le - No drift; leg holds 30-degree position for full 5 seconds 6b. Right Le - No drift; leg holds 30-degree position for full 5 seconds 7. Limb Ataxia: 2 - Present in 2 limbs 8. Sensory: 0 - Normal; no sensory loss 9. Best Language: 0 - No aphasia; normal 10. Dysarthria: 1 = [id number] dysarthria; 11. Extinction and Inattention: 0 - No abnormality Total: 3 NIHSS NIHSS 1a. Level of Consciousness: 0 - Alert; keenly responsive 1b. LOC Questions: 0 - Answers BOTH questions correctly 1c. LOC Commands: 0 - Performs BOTH tasks correctly 2. Best Gaze: 0 - Normal 3. Visual: 0 - No visual loss 4. Facial Palsy: 0 - Normal symmetrical movements 5a. Left Arm: 0 - No drift; arm holds 90 (or 45) degrees for full 10 seconds 5b. Right Arm: 0 - No drift; arm holds 90 (or 45) degrees for full 10 seconds 6a. Left Le - No drift; leg holds 30-degree position for full 5 seconds 6b. Right Le - No drift; leg holds 30-degree position for full 5 seconds 7. Limb Ataxia: 2 - Present in 2 limbs 8. Sensory: 0 - Normal; no sensory loss 9. Best Language: 0 - No aphasia; normal 10. Dysarthria: 1 = [id number] dysarthria; 11. Extinction and Inattention: 0 - No abnormality Total: 3
[2024-08-18 11:20] LABS: Prothrombin Time (Protime)PT. 13.1 SECONDS (11.7-14.9)
[2024-08-18 11:21] LABS: Partial Thromboplast Time 24.6 Seconds (24.1-36.2)
[2024-08-18 11:43] LABS: Mucous, Urine 0 SEEN /hpf (<or=2+); Red Blood Cells-Urine 0 SEEN /hpf (0-5); Squamous Epithelial Cells - UA 0 SEEN /hpf (5-10)
[2024-08-18 11:47] LABS: Alcohol, Blood (Medical)-Serum < 10.1 mg/dL (<=10.0)
[2024-08-18 11:54] LABS: AST(SGOT) 36 U/L (<=31); Alanine Aminotransfer ALT/SGPT 24 U/L (<=34); Albumin, Serum 4.4 g/dL (3.4-4.8); Alkaline Phosphatase 82 U/L (35-104); Anion Gap 11 (5-15); BUN 27 mg/dL (4-19); BUN/Creat Ratio 27.4 RATIO (10-20); Bilirubin, Direct 0.13 mg/dL (0.00-0.30); Carbon Dioxide 25.9 mmol/L (21.0-32.0); Chloride 106 mmol/L (98-108); EST Glomerular Filtration Rate 55 (>60); Estimated Creatinine Clearance 31.63 ml/min (50-250); Globulin 3.2 g/dL (2.2-4.2); Glucose 72 mg/dL (70-99); Potassium 4.3 mmol/L (3.3-5.1); Protein, Total 7.6 g/dL (5.9-8.4); Sodium Level 142 mmol/L (133-145); Total Bilirubin 0.34 mg/dL (0.00-1.30)
[2024-08-18 11:57] LABS: Color, Urine Yellow (Yellow); Glucose, Dipstick Normal (Normal); Ketone-Dipstick Negative (Negative); Leukocyte Esterase-Dipstick 500 /ul (Negative); Nitrite-Dipstick Positive (Negative); Occult Blood-Urine 50 /ul (Negative); Protein-Dipstick 30 mg/dl (Negative); Specific Gravity, Urine 1.005 (1.002-1.030); Urine Bilirubin Dipstick Negative (Negative); Urine Clarity Sl. Cloudy (Clear); Urine Urobilinogen Normal (Normal)
[2024-08-18 12:09] LABS: Bacteria 3+ /hpf (None Seen); White Blood Cells 10-25 SEEN /hpf (0-5)
[2024-08-18 12:13] LABS: Amphetamine Urine NEGATIVE (<1000 ng/mL); Barbiturate Urine NEGATIVE (< 200 ng/mL); Benzodiazepine Urine NEGATIVE (< 200 ng/mL); Buprenorphine Urine NEGATIVE (< 200 ng/mL); Cocaine Urine NEGATIVE (< 300 ng/mL); Fentanyl, Urine NEGATIVE; Methadone Urine NEGATIVE (< 300 ng/mL); Opiates Urine NEGATIVE (< 300 ng/mL); Oxycodone, Urine NEGATIVE (< 100 ng/mL); PCP Urine NEGATIVE (< 25 ng/mL); THC Urine NEGATIVE (< 50 ng/mL)
[2024-08-18] MEDS: Ceftriaxone 1 GM/50 ML BAG IV (12:41)
--- NOTE | 2024-08-18 13:05 | PCM.HP.STD ---
HPI - General General Date of Admission: 08/18/24 Date of Service: 08/18/24 Chief Complaint: Confusion/dysarthria/dysmetria right-sided HPI Narrative BEHZAD HAY, is a 84 F who presented to the emergency department at [facility] [place] on 08/18/2024 due to patient's family being concerned she needed an MRI to rule out a stroke. She was seen in emergency department 2 days ago at which time she had an episode of confusion where she could not figure out how to get her garage open by pushing the button. Workup was negative and emergency department NIH was 0 at that time. She was discharged home after discussion with family. Another family member brought her in today who is visiting from out of town and noted that she continued to have episodes of confusion and was having difficulty with controlling the right side of her arm and leg and some speech changes. They indicated that early on the day of presentation she was unable to use a spoon to feed herself. They also indicated that she was having some difficulty walking with her right leg and was having word finding difficulty. Vital signs on presentation showed a temperature of 98, heart rate 81, respiratory rate 15, blood pressure was 187/89 and pulse ox was 100% on room air. CBC was unremarkable other than a mild left shift with a 79.2% neutrophilia. Coags were normal. Chemistry panel was overtly unremarkable other than a slightly elevated BUN at 27. Her creatinine was at her baseline of 1.0. Glucose was 72 and we did obtain a hemoglobin A1c that was 5.7. Lactic acid was normal at less than 1. Liver functions were unremarkable. Her UA was consistent with infection had nitrites, leuk esterase, white cells and 3+ bacteria. Toxicology screen was negative and at the alcohol level is negative. CT of the brain in the emergency department showed no acute cranial abnormalities and chronic age-related microvascular ischemic changes along with age-related senescent changes and atherosclerotic calcific disease. Chest x-ray showed no acute findings. There is concern for stroke as well as urinary tract infection she was started on ceftriaxone and urine culture was sent. [facility] Medical History (Updated 08/18/24 @ 21:[address] Mara Mar, DO) Osteoarthritis CKD (chronic kidney disease) stage 4, GFR 15-29 ml/min History of atrial fibrillation Osteoarthritis Fe deficiency anemia Home Medications ?Medication ?Instructions ?Recorded ?Last Taken ?Type lisinopril 30 mg tablet 30 mg PO DAILY 08/16/24 08/18/24 History multivitamin (Daily Multi-Vitamin 1 tab PO DAILY 08/16/24 08/18/24 History tablet) Allergy/AdvReac Type Severity Reaction Status Date / Time nitrofurantoin (From Allergy Rash Verified 08/18/24 09:54 Macrobid) Family History unable to obtain unable to obtain Surgical History Hx of tonsillectomy Social History household members: none Smoking Status: Never smoker alcohol intake: never substance use type: does not use ROS Constitutional Constitutional: Denies anorexia, change in weight, chills, fatigue, fever(s), malaise, night sweats, weakness or other Eyes Eyes: Denies blurry vision, change in eye color, change in vision, discharge from eye(s), double vision, erythema, eye pain, loss of vision or other ENT HEENT: Denies abnormal hearing, dysphagia, ear pain, epistaxis, headache(s), hearing loss, nasal congestion, nasal discharge, post nasal drip, sinus pressure, sore throat or other Cardiovascular Cardiovascular: Denies chest pain, claudication, dyspnea on exertion, edema, lightheadedness, orthopnea, palpitations, paroxysmal nocturnal dyspnea, rapid heart rate, syncope or other Respiratory/Chest Respiratory/Chest: Denies cough, dyspnea, excessive phlegm production, hemoptysis, productive cough, shortness of breath at rest, shortness of breath with exertion, wheezing or other Gastrointestinal Gastrointestinal: Denies abdominal pain, coffee ground emesis, constipation, diarrhea, dyspepsia, hematemesis, hematochezia, loose stools, melena, nausea, vomiting or other Genitourinary Genitourinary: Reports urinary frequency; Denies burning urination, difficulty urinating, dysuria, hematuria, nocturia, urinary hesitancy, urinary incontinence, urinary urgency or other Musculoskeletal Musculoskeletal: Denies arthralgias, back pain, joint pain, joint stiffness, joint swelling, myalgias, neck pain or other Neurologic Neurologic: Reports abnormal speech, confusion and focal weakness; Denies abnormal gait, disequilibrium, dizziness, headache(s), numbness, paresthesias, seizure-like activity, seizures, syncope, tingling, tremor(s) or other Psychiatric Psychiatric: Denies anxiety, depression, homicidal ideation, suicidal ideation or other Endocrine Endocrinology: Denies change in body appearance, cold intolerance, excessive sweating, heat intolerance, polydipsia, polyuria or other Hematologic/Lymphatic Hematologic/Lymphatic: Denies anemia, easy bleeding, easy bruising, lymphadenopathy or other Allergic/Immunologic Allergic/Immunologic: Denies rhinitis, hives, eczemia, asthma or other Vital Signs Vital Signs Vital Signs: 08/18/24 09:54 08/18/24 10:52 08/18/24 11:00 Temperature 98 F Temperature Source Oral Pulse Rate 81 69 71 Respiratory Rate 15 14 14 Blood Pressure 187/89 H 165/72 H 152/87 H Blood Pressure Mean 121 103 108 Pulse Ox 100 99 Oxygen Delivery Method Room Air Room Air Room Air 08/18/24 12:36 Temperature Temperature Source Pulse Rate 78 Respiratory Rate 16 Blood Pressure 179/85 H Blood Pressure Mean 116 Pulse Ox 96 Oxygen Delivery Method Room Air Weight Weight: 55.8 kg Body Mass Index (BMI) 24.0 Physical Exam Const alert, no apparent distress, average body habitus and well nourished Constitutional Narrative: Very pleasant elderly, mildly confused, white female, sitting up in bed, appears comfortable, non-toxic General Appearance: cooperative HEENT normocephalic, head/scalp atraumatic and moist oral mucous membranes HEENT Narrative: Mallampati 2, no thrush Eyes PERRL, EOMs intact bilaterally and conjunctivae normal Neck no lymphadenopathy, supple and no carotid bruits Neck Narrative: trachea midline, no thyroid enlargement Resp normal respiratory effort, no retractions, no use of accessory muscles and clear to auscultation bilaterally Auscultation: Negative for rales, rhonchi or wheezes Cardio regular rate, regular rhythm, S1 normal heart sound, S2 normal heart sound, no murmurs, no rub, no gallops and no clicks GI normal to inspection, nondistended, normoactive bowel sounds, soft to palpation and non-tender Extremity no clubbing, cyanosis or edema Extremity Narrative: 2+ pedal and radial pulses Skin skin turgor normal, no jaundice, no petechiae and no mottling Neuro CN's II-XII intact bilaterally Neuro Narrative: dysmetria, expressive aphasia, Sensorium / Orientation: awake, alert, oriented to person and oriented to place; Negative for oriented to time Speech: Negative for speech normal Psych affect normal Psych Narrative: very pleasant Results Lab / Micro Data 08/18/24 10:50 08/18/24 10:50 Labs: Laboratory Results - last 24 hr 08/18/24 10:50: WBC 8.4, RBC 4.17 L, Hgb 13.0, Hct 40.0, MCV 95.9, MCH 31.2, MCHC 32.5, RDW Std Deviation 45.8 H, RDW Coeff of [place] 13.0, Plt Count 254, MPV 9.1, Immature Gran % (Auto) 0.400, Neut % (Auto) 79.2 H, Lymph % (Auto) 10.9 L, [place] % (Auto) 7.5, Eos % (Auto) 0.7, Baso % (Auto) 1.3 H, Absolute Neuts (auto) 6.6, Absolute Lymphs (auto) 0.91, Nucleated RBC % 0, PT 13.1, INR 1.0, APTT 24.6, Sodium 142, Potassium 4.3, Chloride 106, Carbon Dioxide 25.9, Anion Gap 11, BUN 27 H, Creatinine 1.00, Estim Creat Clear Calc 31.63 L, Est GFR (MDRD) Non-Af 55 L, BUN/Creatinine Ratio 27.4 H, Glucose 72, Calcium 10.0, Total Bilirubin 0.34, Direct Bilirubin 0.13, AST 36 H, ALT 24, Alkaline Phosphatase 82, Total Protein 7.6, Albumin 4.4, Globulin 3.2, Ethyl Alcohol < 10.1 08/18/24 11:35: Urine Color Yellow, Urine Clarity Sl. Cloudy, Urine pH 7.0, Ur Specific [place] 1.005, Urine Protein 30 H, Urine Glucose (UA) Normal, Urine Ketones Negative, Urine Occult Blood 50 H, Urine Nitrite Positive H, Urine Bilirubin Negative, Urine Urobilinogen Normal, Ur Leukocyte Esterase 500 H, Urine RBC 0 SEEN, Urine WBC 10-25 SEEN, Ur Squamous Epith Cells 0 SEEN, Urine Bacteria 3+, Urine Mucus 0 SEEN, Urine Opiates Screen NEGATIVE, U Buprenorphine Qual NEGATIVE, Ur Oxycodone Screen NEGATIVE, Urine Methadone Screen NEGATIVE, Urine Fentanyl Screen NEGATIVE, Ur Barbiturates Screen NEGATIVE, Ur Phencyclidine Scrn NEGATIVE, Ur Amphetamines Screen NEGATIVE, U Benzodiazepines Scrn NEGATIVE, Urine Cocaine Screen NEGATIVE, U Cannabinoids Screen NEGATIVE Assessment & Plan Assessment/Plan (1) Dysarthria: (2) Dysmetria: (3) Abnormal urinalysis: PLAN: Plan Dysarthria/expressive aphasia - Highly suspect patient has acute infarct - Start aspirin 81 mg daily - Start atorvastatin 40 mg daily - Check CTA of the head and neck - Check MRI - Check echocardiogram - Check lipid panel - Check hemoglobin A1c - Hold home lisinopril now for permissive hypertension - NIH per protocol - Will add Plavix if stroke identified - Consult neurology Abnormal UA - Suspicious for infection - Culture sent - Start ceftriaxone 1 g daily CKD Stage 4 -creat at baseline -monitor Essential hypertension - Hold home lisinopril - Blood pressure control per stroke protocol with as needed medications - Allow for permissive hypertension with symptoms on presentation Osteoarthritis - As needed Tylenol available History of paroxysmal atrial fibrillation - Noted in documentation from 2021 in the emergency department at which time she spontaneously converted - It does not appear she is on any anticoagulation and was not discharged on any at that time. History otherwise is unclear - Echocardiogram is pending - Check TSH - Currently sinus rhythm but if she did have a stroke this could be the etiology DVT prophylaxis - Continue enoxaparin 40 mg CODE STATUS - Full code Charges/Coding Visit Charges Inpatient E&M: 74790 Init Hosp L2
--- NOTE | 2024-08-18 13:14 | CT_ITS ---
PROCEDURE: STROKE CT HEAD WITHOUT CONTRAST AND CTA HEAD AND NECK W/CON 08/18/2024 REASON FOR EXAM: NEURO DEFICIT, ACUTE, STROKE SUSPECTED TECHNIQUE: CT head was performed without IV contrast. CTA head and neck was then performed with IV contrast. Multiplanar reformats as well as MIP and 3D reconstructions were generated. IV contrast: Isovue 370 VOLUME: 75mL RADIATION DOSE SUMMARY: CTDlvol: 44.99+ 20.76+ 13.56 mGy DLP: 1272.81 mGycm One or more dose reduction techniques were used (e.g., Automated exposure control, adjustment of the mA and/or kV according to patient size, use of iterative reconstruction technique). COMPARISON: 08/16/2024 FINDINGS: CT HEAD: Cerebrum: Focal hypodensity with diminished chaves-white differentiation in the high LEFT parietal lobe along the postcentral sulcus. No significant mass-effect or hemorrhagic conversion.. Additional age- indeterminate hypodensity within the LEFT thalamus.. Suspected a punctate remote lacunar infarct in the LEFT caudate. Mild/moderate cerebral volume loss. Mild background supratentorial white matter hypodensities compatible with chronic microvascular ischemia. Cerebellum/brainstem: Unremarkable. Note slight limitation due to beam hardening artifact. Ventricles/extra-axial spaces: Age-appropriate appearance. Visualized paranasal sinuses/mastoid air cells: Unremarkable. Scalp/calvarium: Unremarkable. Other: Bilateral cataract surgery. Intracranial atherosclerosis.. CTA NECK: Aortic Arch: Atherosclerosis.. Brachiocephalic and subclavians: Patent. RIGHT Carotid: Right CCA: Patent. Right ICA: Patent. Focal irregularity with beaded appearance distally.. Right ECA: Patent. LEFT Carotid: Left CCA: Patent. Left ICA: Nonobstructing atherosclerosis proximally. Focal irregularity with beaded appearance distally. Left ECA: Patent. Vertebrals: RIGHT dominant. LEFT vertebral arises directly from the arch, normal variant.. Both vertebrals form the basilar. RIGHT Vertebral: Patent. Slight irregularity distally. LEFT Vertebral: Patent. Mild multifocal irregularity. CTA HEAD: Anterior circulation: Nonobstructing atherosclerosis in the carotid siphons.. Diffuse irregularity with multifocal mild through moderate/severe stenoses favoring the smaller branches such as M2/M3 and distal A2/A3. Posterior circulation: Focal [id number] stenosis of proximal RIGHT PICA. Tortuous basilar with 40 % stenosis distally. Similar diffuse irregularity though is multifocal mild through moderate/severe stenoses favoring smaller branches such as P2/P3. AICA nonvisualized. 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 Venous structures: Grossly unremarkable within limits of nondedicated technique. Other: Demineralization... CT/STROKE CTA Head AND Neck W/Con IMPRESSION: 1. Findings suspicious for acute infarct along the high LEFT parietal lobe. Ad ditional age-indeterminate hypodensity in the LEFT caudate indeterminate for remote lacunar infarct versus acute ischemia. No hem orrhagic conversion or mass-effect. Consider MRI as indicated. 2. No large vessel occlusion identified. 3. 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 Fairly prominent intracranial a therosclerosis with diffuse irregularity and mild through moderate/severe stenoses throughout the small intracranial vasculature. 4. Findings along the distal [id number] ICAs suspicious for vascul opathy such as fibromuscular dysplasia, although notably fibromuscular dysplasia would be somewhat unusual in this demographic. 5. 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 Recommend clinical follow-up. 6. Additional description as above. Red Alert: #1-2 above The critical information above was relayed directly by me by telephone to Taqueria elliott on 08/18/2024 at 12:[address] [facility]. Reading Location: [id number]
--- NOTE | 2024-08-18 13:14 | ECHOD_ITS ---
Reason For Study Reason For Study: TIA/CVA Procedure This was a 2D Doppler, Color Flow transthoracic echocardiogram. Exam performed portable in patient room. Left Ventricle Normal size and thickness. The LV systolic function is normal. EF is 65 %. Diastolic function is indeterminate. Right Ventricle Normal right ventricle. Atria The left atrium is mildly enlarged. Normal right atrium. Mitral Valve Mild focal mitral valve calcification of the posterior leaflet. Trivial mitral valve insufficiency. Tricuspid Valve Trivial tricuspid valve insufficiency. Unable to estimate RV systolic pressure due to insufficient tricuspid regurgitant envelope. Aortic Valve Mildly calcified aortic valve. Aortic valve sclerosis without stenosis. Pulmonic Valve The pulmonic valve is not well visualized. Trivial pulmonic valve insufficiency. Great Vessels Mildly calcified aortic root. Pericardium/Pleural No pericardial effusion. MMode/2D Measurements & Calculations LVIDd: 4.7 cm IVSd: 0.86 cm LVOT diam: 2.0 cm LVIDs: 2.9 cm LVPWd: 1.1 cm LVOT area: 3.1 cm2 RVDd: 3.3 cm FS: 38.8 % Ao root diam: 3.3 cm LAV(MOD-bp): 54.2 ml LVAd ap4: 20.1 cm2 LAV(MOD-bp) Indexed: 35.9 ml/m2 LVLd ap4: 6.5 cm LAV(MOD-sp2): 53.1 ml EDV(MOD-sp4): 55.1 ml LAV(MOD-sp4): 47.7 ml EDV(sp4-el): 52.4 ml LVAs ap4: 10.9 cm2 LVLs ap4: 5.7 cm ESV(MOD-sp4): 17.8 ml ESV(sp4-el): 17.6 ml EF(MOD-sp4): 67.7 % EF(sp4-el): 66.5 % SV(MOD-sp4): 37.3 ml SV(sp4-el): 34.9 ml LA A4 area: 18.6 cm2 SI(MOD-sp4): 24.7 ml/m2 LA dimension(2D): 4.1 cm RA A4 area: 16.1 cm2 TAPSE: 2.1 cm Time Measurements MV dec time: 0.24 sec Doppler Measurements & Calculations MV E max pablo: 77.5 cm/sec Lat Peak E' Pablo: 10.9 cm/sec Med Peak E' Pablo: 6.9 cm/sec MV A max pablo: 96.5 cm/sec E/E' lat: 7.1 E/E' med: 11.3 MV E/A: 0.80 MV V2 max: 103.9 cm/sec MV P1/2t max pablo: 80.6 cm/sec Ao V2 max: 196.5 cm/sec MV max P.3 mmHg MV P1/2t: 78.8 msec Ao max P.5 mmHg MV V2 mean: 57.5 cm/sec Ao V2 mean: 125.9 cm/sec MV mean P.5 mmHg MV dec slope: 299.5 cm/sec2 Ao mean P.2 mmHg MV V2 VTI: 26.0 cm MVA(P1/2t): 2.8 cm2 Ao V2 VTI: 37.9 cm AV (velocity ratio): 0.62 MVA(VTI): 2.8 cm2 CORONA(I,D): 1.9 cm2 CORONA(V,D): 1.7 cm2 LV V1 max: 105.7 cm/sec SV(LVOT): 73.3 ml PA V2 max: 81.9 cm/sec LV V1 max P.5 mmHg LV V1 mean P.3 mmHg LV V1 mean: 70.3 cm/sec LV V1 VTI: 23.5 cm ECHO/Echo Complete Interpretation Summary The LV systolic function is normal. EF is 65 %. Diastolic function is indeterminate. The left atrium is mildly enlarged. Mild focal mitral valve calcification of the posterior leaflet. Mildly calcified aortic valve. Aortic valve sclerosis without stenosis. Mildly calcified aortic root. Ordering Physician: Mara Mar Performed By: Abelardo Romero RCS
--- NOTE | 2024-08-18 13:14 | MRI_ITS ---
PROCEDURE: BRAIN WITHOUT CONTRAST N/A REASON FOR EXAM: STROKE TECHNIQUE: Noncontrast brain MRI. Multiplanar and multisequence images were obtained. COMPARISON: CT brain and CTA head and neck 08/18/2024 FINDINGS: BRAIN/PARENCHYMA: Moderate sized focus of restricted diffusion left frontoparietal lobe, involving the central and postcentral gyri, with ADC correlate compatible with acute infarcts. There is increased T2/FLAIR hyperintensity within this region compatible vasogenic edema, with effacement of the surrounding sulci and gyri. No significant mass effect or midline shift otherwise. There are subcortical and periventricular white matter FLAIR hyperintensities, likely related to chronic microvascular ischemic disease. EXTRA-AXIAL SPACES: No abnormal extra-axial fluid collections. Patent basal cisterns and foramen magnum. VENTRICLES: Moderate generalized volume loss with concordant ventricular enlargement. . SCALP SOFT TISSUES & CALVARIUM: No significant abnormality. VISUALIZED SINUSES & MASTOIDS: No air-fluid levels in the paranasal sinuses. The mastoid air cells are clear. ARTERIAL FLOW VOIDS: Preserved major arterial flow voids indicating gross patency. MRI/Brain without Contrast IMPRESSION: Acute infarct left frontoparietal lobe as described above, compatible with and MCA distribution infarct. Local mass effect without midline shift. Chronic microvascular ischemia and involutional changes. Red Alert: The critical information above was relayed directly by me by telephone to JESIKA Paulino on 08/18/2024 at 6:39 pm with readback verification. Reading Location: [facility]
[2024-08-18 13:33] LABS: Lactic Acid < 1.0 mmol/L (0.0-2.0)
[2024-08-18 16:02] LABS: Hemoglobin A1c 5.7 % (<=5.6)
--- NOTE | 2024-08-18 18:39 | NURSING ---
spoke with (radiologist) who confirmed pt had an acute stroke in Right frontal lobe. charge Nurse also notified
[2024-08-18] MEDS: Atorvastatin Calcium 40 MG Tablet PO (21:17)
[2024-08-18] MEDS: 0.9% Saline Lock 10 ML Syringe IV (21:20)
[2024-08-18] MEDS: Clopidogrel Bisulfate 75 MG Tablet PO (21:21)
[2024-08-19] VITALS (13 sets, daily range): BP systolic 131–162; BP diastolic 69–117; PULSE 66–104; RESP 14–17; TEMP 36.5–37; O2SAT 96–99; BMI 20.9
[2024-08-19 06:17] LABS: Absolute Lymphocyte Count 1.07 X10^3/uL (0.83-4.51); Basophil# 0.07 X10^3/uL; Basophil% 1.2 % (0-1); Eosinophil# 0.23 X10^3/uL; Eosinophils% 3.9 % (0-5); Hematocrit 36.9 % (37-47); Hemoglobin 11.8 g/dL (12.0-15.0); Lymphocyte # 1.07 X10^3/ul (0.83-4.51); Lymphocyte % 18.3 % (19-41); Mean Corpuscular Volume 96.9 fL (81-99); Mean Platelet Vol. 8.9 fl (6.2-12.0); Monocyte% 8.5 % (0-10); NRBC Flagged by Analyzer 0 % (0-5); Neutrophil # 3.96 X10^3/uL (2.7-7.7); Neutrophil % 67.8 % (47-70); Platelet Count 237 K/mm3 (150-450); RBC Distribution Width CV 13.1 % (11.6-14.6); RBC Distribution Width SD 46.8 fl (35.1-43.9); Red Blood Count 3.81 M/mm3 (4.2-5.4); White Blood Count 5.9 K/mm3 (4.4-11.0)
[2024-08-19 06:42] LABS: Magnesium 2.3 mg/dL (1.5-2.2); Phosphorus 3.2 mg/dL (2.7-4.5)
[2024-08-19 07:10] LABS: ALB/GLOB Ratio 1.4 RATIO (0.9-2.4); AST(SGOT) 33 U/L (<=31); Alanine Aminotransfer ALT/SGPT 18 U/L (<=34); Albumin, Serum 3.7 g/dL (3.4-4.8); Alkaline Phosphatase 70 U/L (35-104); Anion Gap 10 (5-15); BUN 17 mg/dL (4-19); BUN/Creat Ratio 20.6 RATIO (10-20); Calcium,Total 9.1 mg/dL (7.6-11.0); Carbon Dioxide 23.7 mmol/L (21.0-32.0); Chloride 106 mmol/L (98-108); Creatinine, Serum 0.84 mg/dL (0.70-1.20); EST Glomerular Filtration Rate 68 (>60); Estimated Creatinine Clearance 38.02 ml/min (50-250); Globulin 2.6 g/dL (2.2-4.2); Glucose 102 mg/dL (70-99); Potassium 4.3 mmol/L (3.3-5.1); Protein, Total 6.3 g/dL (5.9-8.4); Sodium Level 140 mmol/L (133-145); Total Bilirubin 0.36 mg/dL (0.00-1.30)
[2024-08-19 07:22] LABS: Cholesterol 189 mg/dL (<=200); High Density Lipoprotein 62 mg/dL; Low Density Lipoprotein Calc. 112 mg/dL; Triglycerides 75 mg/dL; Very Low Density Lipoprotein 15 mg/dL (5-40); cholesterol:hdl ratio screen 3.03
[2024-08-19] MEDS: Aspirin 81 MG TAB.CHEW PO (09:29)
[2024-08-19] MEDS: Enoxaparin 40 MG/0.4 ML Syringe SC (09:29)
[2024-08-19] MEDS: Multivitamins,Therapeutic Tablet 1 TABLET PO (09:29)
[2024-08-19] MEDS: Clopidogrel Bisulfate 75 MG Tablet PO (09:31)
[2024-08-19] MEDS: 0.9% Saline Lock 10 ML Syringe IV ×2 (09:31→21:15)
[2024-08-19] MEDS: Ceftriaxone 1 GM/50 ML BAG IV (09:38)
[2024-08-19] MEDS: Metoprolol Tartrate 50 MG Tablet PO ×2 (10:44→21:08)
--- NOTE | 2024-08-19 12:25 | CASEMGMT ---
SW spoke with patient. Introduced self and role at [facility]. SW spoke with patient about therapy and physician's recommendations for Rehab Unit. Patient asked if that is the Rehab Unit here at [facility]. SW told her [facility] has one, but SW could provide her with a list of options. Patient declined stating she wants [facility]. Patient also told SW she wants to talk with her 5 kids as well. SW made a referral to [facility] to have Rehab physician review patient. Tesha SALMON
--- NOTE | 2024-08-19 13:51 | CASEMGMT ---
JEREMIAH met with patient as she triggered SDOH for abuse. Patient declines any type of abuse. SDOH must have been entered in error. Tesha Fish MSW [facility]
--- NOTE | 2024-08-19 13:52 | CASEMGMT ---
SW completed a PHQ9 with patient as she had a Stroke. Patient scored a 0 which indicates no depression. Patient denied need for counseling resources. Tesha SALMON
--- NOTE | 2024-08-19 13:55 | STROKE.CONS ---
Assessment and Plan: Stroke Assessment/Plan BEHZAD HAY is a 84 F with a history of paroxysmal atrial fibrillation in 2021 and she who presents with confusion. Neurological examination shows mild aphasia and dysarthria. Neuroimaging shows CTA: Mild atherosclerosis bilateral ICA, carotid siphons, MCA and RACHEL, MRI: Left fronto parietal stroke LDL 112. ECHO = Ef 65%, LA mildly enlarged. Left MCA stroke cryptogenic in etiology Plan Continue ASA, plavix for 3 weeks then ASA alone. If she has Afib will need anticoagulation instead of antiplatelet. Event monitor upon DC HLD: Statin to keep LDL <70. Permissive hypertension acutely and snf will need it under control PT OT, speech, swallow evaluation Stroke education Thanks for the consultation. Spent 70 min in evaluation and management of the patient. HPI Consult Data Date of Consult: 08/19/24 HPI Narrative HPI Narrative: BEHZAD HAY, is a 84 F with a history of atrial fibrillation who presents to the emergency department at [facility] on 08/18/2024 due to patient's family being concerned she needed. She was seen in emergency department 2 days ago at which time she had an episode of confusion where she could not figure out how to get her garage open by pushing the button. Workup was negative and emergency department NIH was 0 at that time. She was discharged home after discussion with family. Another family member brought her in as she continued to have episodes of confusion and was having difficulty with controlling the right side of her arm and leg and some speech changes. They indicated that early on the day of presentation she was unable to use a spoon to feed herself. She had some difficulty walking with her right leg and was having word finding difficulty. [facility] Medical History (Updated 08/18/24 @ 21:[address] Mara Mar, DO) Osteoarthritis CKD (chronic kidney disease) stage 4, GFR 15-29 ml/min History of atrial fibrillation Osteoarthritis Fe deficiency anemia Home Medications ?Medication ?Instructions ?Recorded ?Last Taken ?Type lisinopril 30 mg tablet 30 mg PO DAILY 08/16/24 08/18/24 History multivitamin (Daily Multi-Vitamin 1 tab PO DAILY 08/16/24 08/18/24 History tablet) Allergy/AdvReac Type Severity Reaction Status Date / Time nitrofurantoin (From Allergy Rash Verified 08/18/24 09:54 Macrobid) Family History unable to obtain Surgical History Hx of tonsillectomy Social History household members: none Smoking Status: Never smoker alcohol intake: never substance use type: does not use Vital Signs Vital Signs Vital Signs: 08/18/24 14:00 08/18/24 15:45 08/18/24 16:11 Temperature 97.4 F L 97.6 F L Temperature Source Temporal Temporal Pulse Rate 79 76 76 Pulse Strength Respiratory Rate 21 H 16 17 Respiratory Effort Respiratory Depth Respiratory Pattern Blood Pressure 181/101 H 164/72 H 164/72 H Blood Pressure Mean 127 102 102 Blood Pressure Source Monitor Monitor Blood Pressure Position Semi-Fowlers Semi-Fowlers Blood Pressure Location Right Arm Right Arm Pulse Ox 99 99 Oxygen Delivery Method Room Air Room Air 08/18/24 16:14 08/18/24 19:00 08/18/24 19:34 Temperature 97.2 F L Temperature Source Temporal Pulse Rate 75 77 Pulse Strength Respiratory Rate 15 Respiratory Effort Normal Respiratory Depth Normal Respiratory Pattern Normal Blood Pressure 145/74 H Blood Pressure Mean 97 Blood Pressure Source Monitor Blood Pressure Position Semi-Fowlers Blood Pressure Location Right Arm Pulse Ox 100 Oxygen Delivery Method Room Air Room Air 08/19/24 00:22 08/19/24 00:22 08/19/24 03:00 Temperature 98.6 F 98.6 F Temperature Source Oral Oral Pulse Rate 78 76 66 Pulse Strength Respiratory Rate 15 15 Respiratory Effort Respiratory Depth Respiratory Pattern Blood Pressure 156/69 H 156/69 H Blood Pressure Mean 98 98 Blood Pressure Source Monitor Blood Pressure Position Semi-Fowlers Blood Pressure Location Left Arm Pulse Ox 98 98 Oxygen Delivery Method Room Air Room Air 08/19/24 04:23 08/19/24 07:23 08/19/24 08:39 Temperature 98.5 F 98.3 F Temperature Source Oral Oral Pulse Rate 67 67 Pulse Strength Respiratory Rate 17 14 Respiratory Effort Normal Non-Labored Respiratory Depth Normal Respiratory Pattern Normal Blood Pressure 147/77 H 145/76 H Blood Pressure Mean 100 99 Blood Pressure Source Monitor Monitor Blood Pressure Position Semi-Fowlers Semi-Fowlers Blood Pressure Location Left Arm Left Arm Pulse Ox 98 99 Oxygen Delivery Method Room Air Room Air Room Air 08/19/24 08:45 08/19/24 09:26 08/19/24 10:44 Temperature 97.7 F L Temperature Source Oral Pulse Rate 72 72 Pulse Strength Normal (2+) Respiratory Rate 14 Respiratory Effort Respiratory Depth Respiratory Pattern Blood Pressure 162/84 H 162/84 H Blood Pressure Mean 110 Blood Pressure Source Monitor Blood Pressure Position Semi-Fowlers Blood Pressure Location Left Arm Pulse Ox 98 Oxygen Delivery Method Room Air 08/19/24 11:20 Temperature 97.8 F Temperature Source Oral Pulse Rate 104 H Pulse Strength Respiratory Rate 16 Respiratory Effort Respiratory Depth Respiratory Pattern Blood Pressure 136/76 H Blood Pressure Mean 96 Blood Pressure Source Monitor Blood Pressure Position Sitting Blood Pressure Location Left Arm Pulse Ox 98 Oxygen Delivery Method Room Air Weight Weight: 51.8 kg Body Mass Index (BMI) 20.9 Physical Exam Const alert and oriented x3 General Appearance: cooperative and comfortable Neuro Neuro Narrative: Awake, alert, difficulty telling month Mild aphasia and dysarthria CN 2-12 intact Power 5/5 Sensation: Intact Lab / Micro Data 08/19/24 05:55 08/19/24 05:55 Labs: Laboratory Results - last 24 hr 08/18/24 10:50: Hemoglobin A1c 5.7 08/19/24 05:55: WBC 5.9, RBC 3.81 L, Hgb 11.8 L, Hct 36.9 L, MCV 96.9, MCH 31.0, MCHC 32.0, RDW Std Deviation 46.8 H, RDW Coeff of Dalton 13.1, Plt Count 237, MPV 8.9, Immature Gran % (Auto) 0.300, Neut % (Auto) 67.8, Lymph % (Auto) 18.3 L, [place] % (Auto) 8.5, Eos % (Auto) 3.9, Baso % (Auto) 1.2 H, Absolute Neuts (auto) 4.0, Absolute Lymphs (auto) 1.07, Nucleated RBC % 0, Sodium 140, Potassium 4.3, Chloride 106, Carbon Dioxide 23.7, Anion Gap 10, BUN 17, Creatinine 0.84, Estim Creat Clear Calc 38.02 L, Est GFR (MDRD) Non-Af 68, BUN/Creatinine Ratio 20.6 H, Glucose 102 H, Calcium 9.1, Phosphorus 3.2, Magnesium 2.3 H, Total Bilirubin 0.36, AST 33 H, ALT 18, Alkaline Phosphatase 70, Total Protein 6.3, Albumin 3.7, Globulin 2.6, Albumin/Globulin Ratio 1.4, Triglycerides 75, Cholesterol 189, LDL Cholesterol, Calc 112, VLDL Cholesterol 15, HDL Cholesterol 62, Cholesterol/HDL Ratio 3.03, TSH 1.590 Micro: Microbiology 08/18/24 11:35 Urine, Clean Catch Urine Culture - Preliminary Gram negative oliva Imaging Radiology Impression Brain MRI 08/18/24 13:14 IMPRESSION: Acute infarct left frontoparietal lobe as described above, compatible with and MCA distribution infarct. Local mass effect without midline shift. Chronic microvascular ischemia and involutional changes. Red Alert: The critical information above was relayed directly by me by telephone to JESIKA Paulino on 08/18/2024 at 6:39 pm with readback verification. Reading Location: [facility] Echocardiogram 08/18/24 13:14 Interpretation Summary The LV systolic function is normal. EF is 65 %. Diastolic function is indeterminate. The left atrium is mildly enlarged. Mild focal mitral valve calcification of the posterior leaflet. Mildly calcified aortic valve. Aortic valve sclerosis without stenosis. Mildly calcified aortic root. Ordering Physician: Mara Mar Performed By: Abelardo Romero RCS Head/Neck CTA 08/18/24 13:14 IMPRESSION: 1. Findings suspicious for acute infarct along the high LEFT parietal lobe. Additional age-indeterminate hypodensity in the LEFT caudate indeterminate for remote lacunar infarct versus acute ischemia. No hemorrhagic conversion or mass-effect. Consider MRI as indicated. 2. No large vessel occlusion identified. 3. 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 Fairly prominent intracranial atherosclerosis with diffuse irregularity and mild through moderate/severe stenoses throughout the small intracranial vasculature. 4. Findings along the distal QINA-[id number]-RIGHT ICAs suspicious for vasculopathy such as fibromuscular dysplasia, although notably fibromuscular dysplasia would be somewhat unusual in this demographic. 5. 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 Recommend clinical follow-up. 6. Additional description as above. Red Alert: #1-2 above The critical information above was relayed directly by me by telephone to Bravo on 08/18/2024 at 12:17 pm [facility]. Reading Location: [id number] Active Medications Active Medications Active Medications: Current Medications Generic Name Dose Route Start Last Admin Trade Name Freq PRN Reason Stop Dose Admin Acetaminophen 650 mg 08/18/24 16:47 Acetaminophen 325 Mg Tablet PO Q4H PRN PRN Pain 1-10 Or Fever>99.6 Albuterol Sulfate 2.5 mg 08/18/24 16:47 Albuterol 2.5 Mg/3 Ml Vial.Neb. INHALATION Q2H PRN PRN SOB &/OR WHEEZING Aspirin 81 mg 08/19/24 08:00 08/19/24 09:29 Aspirin 81 Mg Tab.Chew PO 81 mg BREAKFAST SANJUANA Administration Atorvastatin Calcium 40 mg 08/18/24 22:00 08/18/24 21:17 Atorvastatin Calcium 40 Mg Tablet PO 40 mg QHS SANJUANA Administration Clopidogrel Bisulfate 75 mg 08/19/24 10:00 08/19/24 09:31 Clopidogrel Bisulfate 75 Mg Tablet PO 75 mg DAILY SANJUANA Administration Enoxaparin Sodium 40 mg 08/19/24 10:00 08/19/24 09:29 Enoxaparin 40 Mg/0.4 Ml Syringe SC 40 mg DAILY SNAJUANA Administration Hydralazine HCl 5 mg 08/18/24 16:47 Hydralazine 20 Mg/Ml Vial IV 08/19/24 16:47 Q30M PRN maintain BP parameters with HR <60 Sodium Chloride 250 mls @ 15 mls/hr 08/18/24 16:00 IV .[id number] PRN Saline Flush Sodium Chloride 250 mls @ 15 mls/hr 08/18/24 16:00 IV .[id number] PRN Additional IVPB Infusion Ceftriaxone Sodium 1 gm in 50 mls @ 100 mls/hr 08/19/24 10:00 08/19/24 10:08 Rocephin IV 08/26/24 10:01 Infused Q24 SANJUANA Infusion Labetalol HCl 10 - 20 mg 08/18/24 16:47 Labetalol 20mg/4ml Syringe IV 08/19/24 16:47 Q10M PRN PRN maintain BP parameters with HR >/=60 Lisinopril 30 mg 08/19/24 10:00 Lisinopril 10 Mg Tablet PO DAILY SANJUANA Melatonin 3 mg 08/18/24 16:47 Melatonin 3 Mg Tablet PO QHS PRN PRN INSOMNIA Metoprolol Tartrate 50 mg 08/19/24 10:38 08/19/24 10:44 Metoprolol Tartrate 50 Mg Tablet PO 50 mg BID SANJUANA Administration Protocol Multivitamins 1 tablet 08/19/24 08:00 08/19/24 09:29 Multivitamins,Therapeutic Tablet PO 1 tablet DAILYCM SANJUANA Administration Ondansetron HCl 4 mg 08/18/24 16:47 Ondansetron 4 Mg/2 Ml Vial IV Q8H PRN PRN NAUSEA/VOMITING Senna/Docusate Sodium 2 tablet 08/18/24 16:47 Senna/Docusate Sodium 1 Tablet PO BID PRN PRN Constipation Sodium Chloride 10 - 40 ml 08/18/24 16:00 08/19/24 09:31 0.9% Saline Lock 10 Ml Syringe IV 10 ml UD PRN Administration SALINE FLUSH NIHSS NIHSS Nursing Documentation NIHSS Nursing Documentation: NIHSS: Ischemic Stroke/TIA Start: 08/18/24 16:47 Text: For PCU Patients: NIH and Neuro Check every 4 Status: Active hours, PRN and with change in RN caregiver. Freq: [id number] Protocol: Activity Type Activity Date Activity User E-sign Co-sign Detail Recorded Client Recorded Date Recorded By Document 08/19/24 11:21 Livan [id number] 08/19/24 11:53 ELISE 08/19/24 11:21 NIH Stroke Scale [NIHSS] A score of 0 is normal or asymptomatic . Total possible score is 42. Inpatient: RN or Physician to activate a stroke alert for onset of new stroke symptoms or with NIHSS increase >/= 3 points. Following change in neurological status, NIHSS will be performed per physician order or more frequently PRN. -1a. Level of Consciousness 0 - Alert; keenly responsive -1b. LOC Questions 1 - Answers ONE question correctly -1c. LOC Commands 0 - Performs BOTH tasks correctly -2. Best Gaze 0 - Normal -3. Visual 0 - No visual loss -4. Facial Palsy 0 - Normal symmetrical movements -5a. Left Arm 0 - No drift; arm holds 90 ( or 45) degrees for full 10 seconds -5b. Right Arm 0 - No drift; arm holds 90 ( or 45) degrees for full 10 seconds -6a. Left Leg 0 - No drift; leg holds 30- degree position for full 5 seconds -6b. Right Leg 0 - No drift; leg holds 30- degree position for full 5 seconds -7. Limb Ataxia 0 - Absent -8. Sensory 0 - Normal; no sensory loss -9. Best Language 0 - No aphasia; normal -10. Dysarthria 1 = Mild-to- moderate dysarthria; -11. Extinction and Inattention 0 - No abnormality -Total 2 Query Text:A score of 0 is normal or asymptomatic. Total possible score is 42 . ED: Notify Physician for NIHSS increase by > / = 3 points. Inpatient: RN or Physician to activate a stroke alert for NIHSS increase of > / = 3 points. Coma Scale [Assess] -Eye Opening Spontaneous -Motor Obeys Commands -Verbal Confused [Total] -Coma Scale Total 14 NIHSS 1a. Level of Consciousness: 0 - Alert; keenly responsive 1b. LOC Questions: 1 - Answers ONE question correctly 1c. LOC Commands: 0 - Performs BOTH tasks correctly 2. Best Gaze: 0 - Normal 3. Visual: 0 - No visual loss 4. Facial Palsy: 0 - Normal symmetrical movements 5a. Left Arm: 0 - No drift; arm holds 90 (or 45) degrees for full 10 seconds 5b. Right Arm: 0 - No drift; arm holds 90 (or 45) degrees for full 10 seconds 6a. Left Le - No drift; leg holds 30-degree position for full 5 seconds 6b. Right Le - No drift; leg holds 30-degree position for full 5 seconds 7. Limb Ataxia: 0 - Absent 8. Sensory: 0 - Normal; no sensory loss 9. Best Language: 1 - Rltx-ny-[id number] aphasia; 10. Dysarthria: 1 = Panc-ze-sxkiaoya dysarthria; 11. Extinction and Inattention: 0 - No abnormality Total: 3
--- NOTE | 2024-08-19 16:27 | PCM.PN.HOSP ---
Reason for Visit Reason for Visit: Confusion/dysarthria/dysmetria right-sided Objective Data Objective Data Vital Signs: Vital Signs Temp Pulse Resp BP Pulse Ox O2 Del Method 97.7 F L 88 16 136/99 H 96 Room Air 08/19/24 15:20 08/19/24 15:20 08/19/24 15:20 08/19/24 15:20 08/19/24 15:20 08/19/24 15:20 Oxygen Delivery Method Room Air Weight: 51.8 kg Body Mass Index (BMI) 20.9 Intake & Output: Intake and Output for Last 24 Hours 08/17/24 08/18/24 08/19/24 23:59 23:59 23:59 Intake Total 50 / 50 50 / 50 Balance 50 / 50 50 / 50 Lab / Micro Data 08/19/24 05:55 08/19/24 05:55 Labs: Laboratory Results - last 24 hr 08/19/24 05:55: WBC 5.9, RBC 3.81 L, Hgb 11.8 L, Hct 36.9 L, MCV 96.9, MCH 31.0, MCHC 32.0, RDW Std Deviation 46.8 H, RDW Coeff of Dalton 13.1, Plt Count 237, MPV 8.9, Immature Gran % (Auto) 0.300, Neut % (Auto) 67.8, Lymph % (Auto) 18.3 L, [place] % (Auto) 8.5, Eos % (Auto) 3.9, Baso % (Auto) 1.2 H, Absolute Neuts (auto) 4.0, Absolute Lymphs (auto) 1.07, Nucleated RBC % 0, Sodium 140, Potassium 4.3, Chloride 106, Carbon Dioxide 23.7, Anion Gap 10, BUN 17, Creatinine 0.84, Estim Creat Clear Calc 38.02 L, Est GFR (MDRD) Non-Af 68, BUN/Creatinine Ratio 20.6 H, Glucose 102 H, Calcium 9.1, Phosphorus 3.2, Magnesium 2.3 H, Total Bilirubin 0.36, AST 33 H, ALT 18, Alkaline Phosphatase 70, Total Protein 6.3, Albumin 3.7, Globulin 2.6, Albumin/Globulin Ratio 1.4, Triglycerides 75, Cholesterol 189, LDL Cholesterol, Calc 112, VLDL Cholesterol 15, HDL Cholesterol 62, Cholesterol/HDL Ratio 3.03, TSH 1.590 Micro: Microbiology 08/18/24 11:35 Urine, Clean Catch Urine Culture - Preliminary Gram negative oliva Radiography Diagnostic Testing: Radiology Impression Brain MRI 08/18/24 13:14 IMPRESSION: Acute infarct left frontoparietal lobe as described above, compatible with and MCA distribution infarct. Local mass effect without midline shift. Chronic microvascular ischemia and involutional changes. Red Alert: The critical information above was relayed directly by me by telephone to JESIKA Paulino on 08/18/2024 at 6:39 pm with readback verification. Reading Location: [facility] Echocardiogram 08/18/24 13:14 Interpretation Summary The LV systolic function is normal. EF is 65 %. Diastolic function is indeterminate. The left atrium is mildly enlarged. Mild focal mitral valve calcification of the posterior leaflet. Mildly calcified aortic valve. Aortic valve sclerosis without stenosis. Mildly calcified aortic root. Ordering Physician: Mara Mar Performed By: Abelardo Romero RCS Physical Exam Const alert, no apparent distress, average body habitus and well nourished Constitutional Narrative: Very pleasant elderly, mildly confused, white female, sitting up in bed, appears comfortable, non-toxic General Appearance: cooperative HEENT normocephalic, head/scalp atraumatic and moist oral mucous membranes Eyes PERRL, EOMs intact bilaterally and conjunctivae normal Neck no lymphadenopathy, supple and no carotid bruits Neck Narrative: trachea midline, no thyroid enlargement Resp normal respiratory effort, no retractions, no use of accessory muscles and clear to auscultation bilaterally Auscultation: Negative for rales, rhonchi or wheezes Cardio regular rate, regular rhythm, S1 normal heart sound, S2 normal heart sound, no murmurs, no rub, no gallops and no clicks GI normal to inspection, nondistended, normoactive bowel sounds, soft to palpation and non-tender Extremity no clubbing, cyanosis or edema Extremity Narrative: 2+ pedal and radial pulses Skin skin turgor normal, no jaundice, no petechiae and no mottling Neuro CN's II-XII intact bilaterally Neuro Narrative: dysmetria, expressive aphasia, Sensorium / Orientation: awake, alert, oriented to person and oriented to place; Negative for oriented to time Speech: Negative for speech normal Psych affect normal Psych Narrative: very pleasant Assessment & Plan Assessment/Plan (1) Dysarthria: (2) Dysmetria: (3) Abnormal urinalysis: PLAN: Plan Acute L MCA stroke - Highly suspect patient has acute infarct - Cont aspirin 81 mg daily - Continue atorvastatin 40 mg daily - Plavix started 75 mg and will continue until until can start Eliquis in 3-5 day - CTA head and neck showed 40% distal basilar aa, with diffuse irregularities, 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 coli UTI - Culture result pending - continue ceftriaxone 1 g daily CKD Stage IIIb -creat at baseline -monitor Essential hypertension - Hold home lisinopril - Allow for permissive hypertension with symptoms on presentation - Blood pressure control per stroke protocol with as needed medications Osteoarthritis - As needed Tylenol available History of paroxysmal atrial fibrillation - Noted in documentation from 2021 in the emergency department at which time she spontaneously converted - It does not appear she is on any anticoagulation and was not discharged on any at that time. History otherwise is unclear - TSH WNL - did flip into a-fib this am - started metoprolol 50 mg po BID - start eliquis 5 mg po BID in 3-5 days to avoid hemorrhagic transformation DVT prophylaxis - Continue enoxaparin 40 mg CODE STATUS - Full code Charges/Coding Visit Charges Inpatient E&M: 82184 Subs Hosp L2 NIHSS NIHSS Nursing Documentation NIHSS Nursing Documentation: NIHSS: Ischemic Stroke/TIA Start: 08/18/24 16:47 Text: For PCU Patients: NIH and Neuro Check every 4 Status: Active hours, PRN and with change in RN caregiver. Freq: [id number] Protocol: Activity Type Activity Date Activity User E-sign Co-sign Detail Recorded Client Recorded Date Recorded By Document 08/19/24 15:20 ELISE [id number] 08/19/24 15:32 ELISE 08/19/24 15:20 NIH Stroke Scale [NIHSS] A score of 0 is normal or asymptomatic . Total possible score is 42. Inpatient: RN or Physician to activate a stroke alert for onset of new stroke symptoms or with NIHSS increase >/= 3 points. Following change in neurological status, NIHSS will be performed per physician order or more frequently PRN. -1a. Level of Consciousness 0 - Alert; keenly responsive -1b. LOC Questions 1 - Answers ONE question correctly -1c. LOC Commands 0 - Performs BOTH tasks correctly -2. Best Gaze 0 - Normal -3. Visual 0 - No visual loss -4. Facial Palsy 0 - Normal symmetrical movements -5a. Left Arm 0 - No drift; arm holds 90 ( or 45) degrees for full 10 seconds -5b. Right Arm 0 - No drift; arm holds 90 ( or 45) degrees for full 10 seconds -6a. Left Leg 0 - No drift; leg holds 30- degree position for full 5 seconds -6b. Right Leg 0 - No drift; leg holds 30- degree position for full 5 seconds -7. Limb Ataxia 0 - Absent -8. Sensory 0 - Normal; no sensory loss -9. Best Language 1 - Mild-to- moderate aphasia; -10. Dysarthria 1 = Mild-to- moderate dysarthria; -11. Extinction and Inattention 0 - No abnormality -Total 3 Query Text:A score of 0 is normal or asymptomatic. Total possible score is 42 . ED: Notify Physician for NIHSS increase by > / = 3 points. Inpatient: RN or Physician to activate a stroke alert for NIHSS increase of > / = 3 points. Coma Scale [Assess] -Eye Opening Spontaneous -Motor Obeys Commands -Verbal Confused [Total] -Coma Scale Total 14
[2024-08-19] MEDS: Atorvastatin Calcium 40 MG Tablet PO (21:08)
[2024-08-19] MEDS: MELATONIN 3 MG TABLET PO (21:14)
[2024-08-20] VITALS (11 sets, daily range): BP systolic 99–163; BP diastolic 57–104; PULSE 61–95; RESP 14–17; TEMP 36.6–36.8; O2SAT 96–98; BMI 20.9
[2024-08-20] MEDS: Aspirin 81 MG TAB.CHEW PO (09:30)
[2024-08-20] MEDS: Clopidogrel Bisulfate 75 MG Tablet PO (09:30)
[2024-08-20] MEDS: Multivitamins,Therapeutic Tablet 1 TABLET PO (09:30)
[2024-08-20] MEDS: Metoprolol Tartrate 50 MG Tablet PO ×2 (09:30→22:02)
[2024-08-20] MEDS: Enoxaparin 40 MG/0.4 ML Syringe SC (09:30)
[2024-08-20] MEDS: Ceftriaxone 1 GM/50 ML BAG IV (09:32)
[2024-08-20] MEDS: 0.9% Saline Lock 10 ML Syringe IV ×2 (09:32→22:03)
--- NOTE | 2024-08-20 11:40 | PCM.PN.HOSP ---
Reason for Visit Reason for Visit: Confusion/dysarthria/dysmetria right-sided Subjective Subjective Patient has no complaints. Awaiting acceptance at rehab and if we can get it today we will start pre-CERT. Anticipate patient will be here through the weekend. This was discussed with her. She is asking if family can come visit her through the weekend and we told her of course. She is worried about Mother's Day. Objective Data Objective Data Vital Signs: Vital Signs Temp Pulse Resp BP Pulse Ox O2 Del Method 98 F 63 17 99/62 97 Room Air 08/20/24 10:23 08/20/24 10:23 08/20/24 10:23 08/20/24 10:23 08/20/24 10:23 08/20/24 10:23 Oxygen Delivery Method Room Air Weight: 51.8 kg Body Mass Index (BMI) 20.9 Intake & Output: Intake and Output for Last 24 Hours 08/18/24 08/19/24 08/20/24 23:59 23:59 23:59 Intake Total 50 / 50 50 / 50 Balance 50 / 50 50 / 50 Lab / Micro Data 08/19/24 05:55 08/19/24 05:55 Micro: Microbiology 08/18/24 11:35 Urine, Clean Catch Urine Culture - Final Escherichia coli 08/18/24 12:35 Blood Culture (Wb) - Left Hand Blood Culture - Preliminary No growth in 48 hours. 08/18/24 17:00 Blood Culture (Wb) - Anticubital Right Blood Culture - Preliminary No growth in 48 hours. Radiography Diagnostic Testing: Radiology Impression Echocardiogram 08/18/24 13:14 Interpretation Summary The LV systolic function is normal. EF is 65 %. Diastolic function is indeterminate. The left atrium is mildly enlarged. Mild focal mitral valve calcification of the posterior leaflet. Mildly calcified aortic valve. Aortic valve sclerosis without stenosis. Mildly calcified aortic root. Ordering Physician: Mara Mar Performed By: Abelardo Romero RCS Physical Exam Const alert, no apparent distress, average body habitus and well nourished Constitutional Narrative: Very pleasant elderly, sitting up in chair at the bedside, appears comfortable, nontoxic, oriented to self and place confused on time General Appearance: cooperative HEENT normocephalic and head/scalp atraumatic Neuro Neuro Narrative: dysmetria, expressive aphasia, Sensorium / Orientation: awake, alert, oriented to person and oriented to place; Negative for oriented to time Speech: Negative for speech normal Psych affect normal Psych Narrative: very pleasant Assessment & Plan Assessment/Plan (1) Dysarthria: (2) Dysmetria: (3) Abnormal urinalysis: PLAN: Plan Acute L MCA stroke - shows Acute infarct of L frontoparietal lobe with MCA infarct territory - Continue atorvastatin 40 mg daily - Continue Plavix 75 mg daily and aspirin 81 mg daily until until can start Eliquis at 3 to 5 days after symptoms which would be 08/21/2024 -Will plan on starting Eliquis tomorrow - CTA head and neck showed 40% distal basilar aa, with diffuse irregularities, 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 coli UTI - E. coli is pansensitive so we will transition to Keflex to complete a 5-day course - Today is day 3 of 5 CKD Stage IIIb -creat at baseline -monitor periodically Essential hypertension -Discontinue lisinopril - Continue metoprolol added for her paroxysmal atrial fibrillation - Will likely discontinue lisinopril completely at discharge Osteoarthritis - As needed Tylenol available PAF - Noted in documentation from 2021 in the emergency department at which time she spontaneously converted -Patient has been in and out of atrial fibrillation during this hospitalization but currently in normal sinus rhythm -Continue metoprolol 50 mg p.o. twice daily -Will start Eliquis tomorrow 5 mg p.o. twice daily - TSH WNL DVT prophylaxis - Continue enoxaparin 40 mg until Eliquis can be initiated then discontinue enoxaparin CODE STATUS - Full code Charges/Coding Visit Charges Inpatient E&M: 71379 Subs Hosp L1 NIHSS NIHSS Nursing Documentation NIHSS Nursing Documentation: NIHSS: Ischemic Stroke/TIA Start: 08/18/24 16:47 Text: For PCU Patients: NIH and Neuro Check every 4 Status: Active hours, PRN and with change in RN caregiver. Freq: [id number] Protocol: Activity Type Activity Date Activity User E-sign Co-sign Detail Recorded Client Recorded Date Recorded By Document 08/20/24 10:23 DS [id number] 08/20/24 10:26 DS 08/20/24 10:23 NIH Stroke Scale [NIHSS] A score of 0 is normal or asymptomatic . Total possible score is 42. Inpatient: RN or Physician to activate a stroke alert for onset of new stroke symptoms or with NIHSS increase >/= 3 points. Following change in neurological status, NIHSS will be performed per physician order or more frequently PRN. -1a. Level of Consciousness 0 - Alert; keenly responsive -1b. LOC Questions 0 - Answers BOTH questions correctly -1c. LOC Commands 0 - Performs BOTH tasks correctly -2. Best Gaze 0 - Normal -3. Visual 0 - No visual loss -4. Facial Palsy 0 - Normal symmetrical movements -5a. Left Arm 0 - No drift; arm holds 90 ( or 45) degrees for full 10 seconds -5b. Right Arm 0 - No drift; arm holds 90 ( or 45) degrees for full 10 seconds -6a. Left Leg 0 - No drift; leg holds 30- degree position for full 5 seconds -6b. Right Leg 0 - No drift; leg holds 30- degree position for full 5 seconds -7. Limb Ataxia 1 - Present in 1 limb -8. Sensory 1 - Mild-to- moderate sensory loss; -9. Best Language 1 - Mild-to- moderate aphasia; -10. Dysarthria 1 = Mild-to- moderate dysarthria; -11. Extinction and Inattention 0 - No abnormality -Total 4 Query Text:A score of 0 is normal or asymptomatic. Total possible score is 42 . ED: Notify Physician for NIHSS increase by > / = 3 points. Inpatient: RN or Physician to activate a stroke alert for NIHSS increase of > / = 3 points. Coma Scale [Assess] -Eye Opening Spontaneous -Motor Obeys Commands -Verbal Oriented [Total] -Coma Scale Total 15
--- NOTE | 2024-08-20 12:40 | CASEMGMT ---
JEREMIAH met with patient. JEREMIAH reintroduced self as patient did not remember SW. JEREMIAH let patient know that [facility] Rehab Unit has accepted her. JEREMIAH explained that she will stay on PCU until her insurance approves her. This could be this weekend or the beginning of next week. Patient thanked JEREMIAH. JEREMIAH called patient's son Art and notified him. Art asked JEREMIAH to call Aditi and let her know. JEREMIAH called patient's daughter Aditi and notified her of above inforamtion. Aditi thanked JEREMIAH for the update. Plan: [facility] Acute Rehab Unit pending insurance approval. Tesha Fish SLOTTER OPERATOR HELPER LUIS ANTONIO
--- NOTE | 2024-08-20 14:01 | STROKE.PNOTE ---
Objective Data Objective Data Vital Signs: Vital Signs Temp Pulse Resp BP Pulse Ox O2 Del Method 98 F 63 17 99/62 97 Room Air 08/20/24 10:23 08/20/24 10:23 08/20/24 10:23 08/20/24 10:23 08/20/24 10:23 08/20/24 10:23 Oxygen Delivery Method Room Air Weight: 51.8 kg Body Mass Index (BMI) 20.9 Intake & Output: Intake and Output for Last 24 Hours 08/18/24 08/19/24 08/20/24 23:59 23:59 23:59 Intake Total 50 / 50 50 / 50 670 / 670 Balance 50 / 50 50 / 50 670 / 670 Lab / Micro Data 08/19/24 05:55 08/19/24 05:55 Micro: Microbiology 08/18/24 11:35 Urine, Clean Catch Urine Culture - Final Escherichia coli 08/18/24 12:35 Blood Culture (Wb) - Left Hand Blood Culture - Preliminary No growth in 48 hours. 08/18/24 17:00 Blood Culture (Wb) - Anticubital Right Blood Culture - Preliminary No growth in 48 hours. Physical Exam Const Orientation / Consciousness: awake, oriented to person and oriented to place Neuro Neuro Narrative: Awake, alert, difficulty telling month Mild aphasia and dysarthria. Improved fluency since yesterday. CN 2-12 intact Power 5/5 Sensation: Intact Subject: Neurology Subjective BEHZAD HAY is a 84 year old F, who we are seeing in consultation today for advice on the management of stroke and related patient care. Improving speech. Noticed to be in Afib during hospitalization. Assessment and Plan: Stroke Assessment/Plan BEHZAD HAY is a 84 F with a history of paroxysmal atrial fibrillation in 2021 not on Ac and she who presents with confusion. Neurological examination shows mild aphasia and dysarthria. Neuroimaging shows CTA: Mild atherosclerosis bilateral ICA, carotid siphons, MCA and RACHEL, MRI: Left fronto parietal stroke LDL 112. ECHO = Ef 65%, LA mildly enlarged. She has been in AFib during her hospitalization Left MCA stroke likely from atrial fibrillation Plan On ASA, plavix. Based on the stroke burden can start Anticoagulation - eliquis in am and Dc DAPT HTN: Aim normotension fpc. HLD: Statin to keep LDL <70. For her left supraclinoid ICA terminus aneurysm can f/up with NSY routinely as out patient PT OT, speech, swallow evaluation Stroke education Thanks for the consultation. Spent 30 min in evaluation and management of the patient. NIHSS NIHSS Nursing Documentation NIHSS Nursing Documentation: NIHSS: Ischemic Stroke/TIA Start: 08/18/24 16:47 Text: For PCU Patients: NIH and Neuro Check every 4 Status: Active hours, PRN and with change in RN caregiver. Freq: [id number] Protocol: Activity Type Activity Date Activity User E-sign Co-sign Detail Recorded Client Recorded Date Recorded By Document 08/20/24 10:23 DS [id number] 08/20/24 10:26 DS 08/20/24 10:23 NIH Stroke Scale [NIHSS] A score of 0 is normal or asymptomatic . Total possible score is 42. Inpatient: RN or Physician to activate a stroke alert for onset of new stroke symptoms or with NIHSS increase >/= 3 points. Following change in neurological status, NIHSS will be performed per physician order or more frequently PRN. -1a. Level of Consciousness 0 - Alert; keenly responsive -1b. LOC Questions 0 - Answers BOTH questions correctly -1c. LOC Commands 0 - Performs BOTH tasks correctly -2. Best Gaze 0 - Normal -3. Visual 0 - No visual loss -4. Facial Palsy 0 - Normal symmetrical movements -5a. Left Arm 0 - No drift; arm holds 90 ( or 45) degrees for full 10 seconds -5b. Right Arm 0 - No drift; arm holds 90 ( or 45) degrees for full 10 seconds -6a. Left Leg 0 - No drift; leg holds 30- degree position for full 5 seconds -6b. Right Leg 0 - No drift; leg holds 30- degree position for full 5 seconds -7. Limb Ataxia 1 - Present in 1 limb -8. Sensory 1 - Mild-to- moderate sensory loss; -9. Best Language 1 - Mild-to- moderate aphasia; -10. Dysarthria 1 = Mild-to- moderate dysarthria; -11. Extinction and Inattention 0 - No abnormality -Total 4 Query Text:A score of 0 is normal or asymptomatic. Total possible score is 42 . ED: Notify Physician for NIHSS increase by > / = 3 points. Inpatient: RN or Physician to activate a stroke alert for NIHSS increase of > / = 3 points. Coma Scale [Assess] -Eye Opening Spontaneous -Motor Obeys Commands -Verbal Oriented [Total] -Coma Scale Total 15 NIHSS 1a. Level of Consciousness: 0 - Alert; keenly responsive 1b. LOC Questions: 0 - Answers BOTH questions correctly 1c. LOC Commands: 0 - Performs BOTH tasks correctly 2. Best Gaze: 0 - Normal 3. Visual: 0 - No visual loss 4. Facial Palsy: 0 - Normal symmetrical movements 5a. Left Arm: 0 - No drift; arm holds 90 (or 45) degrees for full 10 seconds 5b. Right Arm: 0 - No drift; arm holds 90 (or 45) degrees for full 10 seconds 6a. Left Le - No drift; leg holds 30-degree position for full 5 seconds 6b. Right Le - No drift; leg holds 30-degree position for full 5 seconds 7. Limb Ataxia: 0 - Absent 8. Sensory: 0 - Normal; no sensory loss 9. Best Language: 1 - Ykya-[id number] aphasia; 10. Dysarthria: 1 = Ienu-bz-[id number] dysarthria; 11. Extinction and Inattention: 0 - No abnormality Total: 2
--- NOTE | 2024-08-20 14:22 | CHAPLAIN ---
Type of Pastoral Visit _x__ Initial Visit ___ Follow-up Visit ___ On-call Visit ___ General Patient Visit ___ Spiritual Assessment ___ Family Conference ___ Bereavement ___ Rapid Response ___ Code Blue ___ Other (describe below) Pastoral Care Referral From _x__ Patient _x__ Family ___ Nurse ___ Physician ___ Textile Stylist ___ Rn Ostomy ___ Other (describe below) Sacrament/Intervention _x__ Active listening ___ Anointing ___ Buddhism ___ Bereavement ___ Communion _x__ Nasreen exploration ___ _x__ Life review _x__ Prayer ___ Reconciliation ___ Sacrament of Sick ___ Supportive presence ___ Wedding ___ Other (describe below) Pastoral Comments family members are ready to leave the room when this green jobs trainer arrived; pt is finishing her lunch receiving help from a DIL; pt is glad to talk and does so about her stroke and her life; however patient has issues with remembering names, events, and misuses a few words now and then; pt has a control clerk subassembly and scientology that she refers to; pt has more family in the area for support; pt is not in distress but seems to take this situation in stride; neurologist comes on the screen to make updated evaluation
[2024-08-20] MEDS: Cephalexin 500 MG Capsule PO (22:02)
[2024-08-20] MEDS: Atorvastatin Calcium 40 MG Tablet PO (22:02)
[2024-08-21] VITALS (10 sets, daily range): BP systolic 121–152; BP diastolic 64–116; PULSE 55–70; RESP 15–18; TEMP 35.9–36.8; O2SAT 96–99; BMI 20.9
[2024-08-21] MEDS: Acetaminophen 325 MG Tablet 650 MG PO ×2 (08:34→21:56)
[2024-08-21] MEDS: Metoprolol Tartrate 50 MG Tablet PO ×2 (08:35→21:57)
[2024-08-21] MEDS: Aspirin 81 MG TAB.CHEW PO (08:35)
[2024-08-21] MEDS: Clopidogrel Bisulfate 75 MG Tablet PO (08:35)
[2024-08-21] MEDS: Multivitamins,Therapeutic Tablet 1 TABLET PO (08:35)
[2024-08-21] MEDS: Cephalexin 500 MG Capsule PO ×2 (08:35→21:56)
[2024-08-21] MEDS: Enoxaparin 40 MG/0.4 ML Syringe SC (08:35)
--- NOTE | 2024-08-21 09:01 | CASEMGMT ---
Social Work Pt was approved to go to rehab, as per [facility] pt can go to rehab tomorrow. SW notified physician that pt was approved and can go to rehab tomorrow. SW called daughter Aditi, let her know that pt was approved and will go to rehab tomorrow. Aditi states she went on [facility]'s website and saw pt was approved as of yesterday, for one week. Aditi asked if it would be one week from the 9th, or one week from when she gets to rehab. JEREMIAH explained it will likely be one week from the 9th. JEREMIAH educated Aditi that once pt is there, the staff in rehab will go back to [facility] to ask for more time if needed. JEREMIAH explained that this is never guaranteed but the hope would be that they would approve pt for additional time. Daughter Aditi states understanding. Aditi inquired what time pt would be moved tomorrow, SW explained this is difficult to predict, advised she call the PCU prior to coming to visit tomorrow, to see if pt has been moved yet. SW did let her know that someone should call her tomorrow also however, to let her know when pt is going to rehab. Daughter states understanding. SW did also let pt know that she was approved for rehab and will go tomorrow. Pt states understanding. Plan is rehab Friday, green sheet updated. YOSELIN Perez
--- NOTE | 2024-08-21 13:27 | PCM.PN.HOSP ---
Reason for Visit Reason for Visit: No complaints overnight. We discussed starting anticoagulation today. Patient states she really does not want to start blood thinners however per discussion she also would prefer not to have a stroke. She chooses blood thinners over stroke. She was on the phone with her daughter at the time of our conversation who endorsed utilization of Eliquis. Objective Data Objective Data Vital Signs: Vital Signs Temp Pulse Resp BP Pulse Ox O2 Del Method 98.3 F 55 L 16 132/76 H 96 Room Air 08/21/24 10:00 08/21/24 10:00 08/21/24 10:00 08/21/24 10:00 08/21/24 11:36 08/21/24 11:36 Oxygen Delivery Method Room Air Weight: 51.8 kg Body Mass Index (BMI) 20.9 Intake & Output: Intake and Output for Last 24 Hours 08/19/24 08/20/24 08/21/24 23:59 23:59 23:59 Intake Total 50 / 50 1070 / 1070 400 / 400 Balance 50 / 50 1070 / 1070 400 / 400 Lab / Micro Data 08/19/24 05:55 08/19/24 05:55 Micro: Microbiology 08/18/24 11:35 Urine, Clean Catch Urine Culture - Final Escherichia coli 08/18/24 12:35 Blood Culture (Wb) - Left Hand Blood Culture - Preliminary No growth in 48 hours. 08/18/24 17:00 Blood Culture (Wb) - Anticubital Right Blood Culture - Preliminary No growth in 48 hours. Physical Exam Const alert, no apparent distress, average body habitus and well nourished Constitutional Narrative: Very pleasant elderly, sitting up in bed, appears comfortable, nontoxic, on phone with her daughter, nursing at bedside General Appearance: cooperative HEENT normocephalic, head/scalp atraumatic and moist oral mucous membranes Resp normal respiratory effort, no retractions, no use of accessory muscles and clear to auscultation bilaterally Auscultation: Negative for rales, rhonchi or wheezes Cardio regular rate, regular rhythm, S1 normal heart sound, S2 normal heart sound, no murmurs, no rub, no gallops and no clicks GI normal to inspection, nondistended, normoactive bowel sounds, soft to palpation and non-tender Extremity no clubbing, cyanosis or edema Extremity Narrative: 2+ pedal and radial pulses Neuro Neuro Narrative: dysmetria, mild expressive aphasia, some dysarthria Sensorium / Orientation: awake, alert, oriented to person and oriented to place; Negative for oriented to time Speech: Negative for speech normal Psych affect normal Psych Narrative: very pleasant Assessment & Plan Assessment/Plan (1) Dysarthria: (2) Dysmetria: (3) Abnormal urinalysis: PLAN: Plan Acute L MCA stroke - shows Acute infarct of L frontoparietal lobe with MCA infarct territory - Continue atorvastatin 40 mg daily - Stop Plavix and aspirin - Start Eliquis 2.5 mg p.o. 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 coli UTI - E. coli is pansensitive so we will transition to Keflex to complete a 5-day course - Today is day 4 of 5 CKD Stage IIIb -creat at baseline -monitor periodically Essential hypertension - Metoprolol 50 mg p.o. twice daily - Will likely discontinue lisinopril completely at discharge Osteoarthritis - As needed Tylenol available PAF - Noted in documentation from 2021 in the emergency department at which time she spontaneously converted -Patient has been in and out of atrial fibrillation during this hospitalization but currently in normal sinus rhythm -Continue metoprolol 50 mg p.o. twice daily -Will start Eliquis tomorrow 2.5 mg p.o. twice daily - TSH WNL DVT prophylaxis - Start Eliquis 2.5 mg p.o. twice daily and discontinue enoxaparin CODE STATUS - Full code Charges/Coding Visit Charges Inpatient E&M: 21257 Subs Hosp L2 NIHSS NIHSS Nursing Documentation NIHSS Nursing Documentation: NIHSS: Ischemic Stroke/TIA Start: 08/18/24 16:47 Text: For PCU Patients: NIH and Neuro Check every 4 Status: Active hours, PRN and with change in RN caregiver. Freq: [id number] Protocol: Activity Type Activity Date Activity User E-sign Co-sign Detail Recorded Client Recorded Date Recorded By Document 08/21/24 10:00 [id number] 08/21/24 10:37 EM 08/21/24 10:00 NIH Stroke Scale [NIHSS] A score of 0 is normal or asymptomatic . Total possible score is 42. Inpatient: RN or Physician to activate a stroke alert for onset of new stroke symptoms or with NIHSS increase >/= 3 points. Following change in neurological status, NIHSS will be performed per physician order or more frequently PRN. -1a. Level of Consciousness 0 - Alert; keenly responsive -1b. LOC Questions 1 - Answers ONE question correctly -1c. LOC Commands 0 - Performs BOTH tasks correctly -2. Best Gaze 0 - Normal -3. Visual 0 - No visual loss -4. Facial Palsy 0 - Normal symmetrical movements -5a. Left Arm 0 - No drift; arm holds 90 ( or 45) degrees for full 10 seconds -5b. Right Arm 0 - No drift; arm holds 90 ( or 45) degrees for full 10 seconds -6a. Left Leg 0 - No drift; leg holds 30- degree position for full 5 seconds -6b. Right Leg 0 - No drift; leg holds 30- degree position for full 5 seconds -7. Limb Ataxia 0 - Absent -8. Sensory 0 - Normal; no sensory loss -9. Best Language 1 - Mild-to- moderate aphasia; -10. Dysarthria 1 = Mild-to- moderate dysarthria; -11. Extinction and Inattention 0 - No abnormality -Total 3 Query Text:A score of 0 is normal or asymptomatic. Total possible score is 42 . ED: Notify Physician for NIHSS increase by > / = 3 points. Inpatient: RN or Physician to activate a stroke alert for NIHSS increase of > / = 3 points. Coma Scale [Assess] -Eye Opening Spontaneous -Motor Obeys Commands -Verbal Confused [Total] -Coma Scale Total 14
[2024-08-21] MEDS: Atorvastatin Calcium 40 MG Tablet PO (21:56)
[2024-08-21] MEDS: APIXABAN 2.5 MG TABLET (WCH) PO (22:01)
[2024-08-22 01:55] VITALS: BP 140/59; PULSE 56; RESP 16; TEMP 36.7; O2SAT 98
--- NOTE | 2024-08-22 04:00 | NURSING ---
This RN taking over care at this time
[2024-08-22 05:13] LABS: Hematocrit 34.7 % (37-47); Mean Corp Hgb Conc 31.7 g/dL (32-36); Mean Corpuscular Hgb 31.3 pg (27.0-32.0); Mean Corpuscular Volume 98.6 fL (81-99); Mean Platelet Vol. 9.6 fl (6.2-12.0); Platelet Count 245 K/mm3 (150-450); RBC Distribution Width CV 13.1 % (11.6-14.6); Red Blood Count 3.52 M/mm3 (4.2-5.4); White Blood Count 5.7 K/mm3 (4.4-11.0)
[2024-08-22 05:38] LABS: Scan Indicated on CBC? Y/N NO
[2024-08-22 05:43] LABS: Anion Gap 9 (5-15); BUN 31 mg/dL (4-19); BUN/Creat Ratio 39.3 RATIO (10-20); Calcium,Total 9.1 mg/dL (7.6-11.0); Carbon Dioxide 22.3 mmol/L (21.0-32.0); Chloride 111 mmol/L (98-108); Creatinine, Serum 0.78 mg/dL (0.70-1.20); EST Glomerular Filtration Rate 74 (>60); Estimated Creatinine Clearance 39.92 ml/min (50-250); Glucose 96 mg/dL (70-99); Potassium 4.1 mmol/L (3.3-5.1); Sodium Level 142 mmol/L (133-145)
[2024-08-22 05:50] VITALS: BP 158/64; PULSE 56; RESP 18; TEMP 36.5; O2SAT 97
--- NOTE | 2024-08-22 07:26 | DS.PCM_ITS ---
Providers Date of Admission: 08/18/24 Date of Discharge: 08/22/24 Primary Care Physician: Tasha Deutsch, DENTAL LABORATORY TECHNOLOGY TEACHER Consultations 08/18/24 16:47 Consult: Tele-Neurology Routine Consulting Provider: [facility] Reason for Consult: Acute Ischemic Stroke/TIA EMERGENT Consult: No MD Notified: Yes Date Notified: 08/18/24 Time Notified: 16:51 Method of Notification: Answering Service Nursing Unit Staff Notify [facility] of Tele-Neurology Consult: Yes Reason For Visit: STROKE Diagnosis Discharge Diagnosis (1) Dysarthria: Status: Acute Code(s): R47.1 - Dysarthria and anarthria (2) Dysmetria: Status: Acute Code(s): R27.8 - Other lack of coordination (3) Abnormal urinalysis: Status: Acute Code(s): R82.90 - Unspecified abnormal findings in urine Medications at Discharge Home Medications lisinopril 30 mg tablet 30 mg PO DAILY 08/16/24 multivitamin (Daily Multi-Vitamin tablet) 1 tab PO DAILY 08/16/24 acetaminophen 325 mg tablet 650 mg (2 x 325 mg) PO Q4H PRN PRN Pain 1-10 Or Fever>99.6 #0 tabs 08/22/24 apixaban 5 mg tablet (Eliquis) 2.5 mg (1/2 x 5 mg) PO BID #0 tabs 08/22/24 atorvastatin 40 mg tablet 40 mg PO QHS #1 TAB 08/22/24 cephalexin 500 mg capsule 500 mg PO Q12 #2 caps 08/22/24 melatonin 3 mg tablet 3 mg PO QHS PRN PRN Insomnia #0 tabs 08/22/24 metoprolol tartrate 50 mg tablet 25 mg (1/2 x 50 mg) PO BID #0 tabs 08/22/24 sennosides 8.6 mg-docusate sodium 50 mg tablet (Stimulant Laxative Plus) 2 tab PO BID PRN PRN Constipation #0 tabs 08/22/24 Hospital Course Operations None Procedures 2-D Echocardiogram and - (CT brain/CTA head neck/MRI brain) Summary of Care Provided Minutes Spent on Discharge: 38 Hospital Course: BEHZAD HAY, is a 84 F who presented to the emergency department at [facility] on 08/18/2024 due to patient's family being concerned she needed an MRI to rule out a stroke. She was seen in emergency department 2 days ago at which time she had an episode of confusion where she could not figure out how to get her garage open by pushing the button. Workup was negative and emergency department NIH was 0 at that time. She was discharged home after discussion with family. Another family member brought her in today who is visiting from out of town and noted that she continued to have episodes of confusion and was having difficulty with controlling the right side of her arm and leg and some speech changes. They indicated that early on the day of presentation she was unable to use a spoon to feed herself. They also indicated that she was having some difficulty walking with her right leg and was having word finding difficulty. Vital signs on presentation showed a temperature of 98, heart rate 81, respiratory rate 15, blood pressure was 187/89 and pulse ox was 100% on room air. CBC was unremarkable other than a mild left shift with a 79.2% neutrophilia. Coags were normal. Chemistry panel was overtly unremarkable other than a slightly elevated BUN at 27. Her creatinine was at her baseline of 1.0. Glucose was 72 and we did obtain a hemoglobin A1c that was 5.7. Lactic acid was normal at less than 1. Liver functions were unremarkable. Her UA was consistent with infection had nitrites, leuk esterase, white cells and 3+ bacteria. Toxicology screen was negative and at the alcohol level is negative. CT of the brain in the emergency department showed no acute cranial abnormalities and chronic age-related microvascular ischemic changes along with age-related senescent changes and atherosclerotic calcific disease. Chest x-ray showed no acute findings. There is concern for stroke as well as urinary tract infection and she was started on ceftriaxone and urine culture was sent. She was admitted to PCU for further workup. Urine culture did grow out E. coli and she was treated for a total of 5 days initially with ceftriaxone and transition to Keflex. She has 1 more day at discharge and antibiotic can be discharged on 08/23/2024. Echocardiogram showed a normal EF at 65% with indeterminate diastolic dysfunction, mild left atrial enlargement, aortic valve sclerosis without stenosis and a mildly calcified aortic root. MRI did show an acute left frontal parietal lobe infarct compatible with the MCA distribution and local mass effect without midline shift as well as chronic microvascular ischemic changes and involutional changes. On admission I did find that she had been in atrial fibrillation a past. She was not anticoagulated and further information from her youngest daughter revealed that there was discussion of anticoagulation however the patient and the oldest daughter did not want her to go on it due to side effects of bleeding. So it was deferred previously due to that. During her hospitalization, she did flip into A-fib. Rates were in the low 100s. We started her on metoprolol initially 50 mg p.o. twice daily and then transition to 25 mg p.o. twice daily as her heart rate dipped in the 50s when she was in sinus rhythm. She did self convert into sinus rhythm and remained there for a good bit of her hospitalization however now we know she does have paroxysmal atrial fibrillation I would you feel that her stroke was cardioembolic most likely. We started her on apixaban 2.5 mg p.o. twice daily as dose adjustment is recommended for age and weight. We did discuss that for the risk of being anticoagulated to outweigh the benefit she would have to be falling on a daily basis which she is not doing she falls intermittently and most recent falls related to her stroke. DOAC was started 5 days after symptom onset for stroke as recommended by neurology. They recommended discontinuing her aspirin and Plavix at the time we initiated her DOAC. She is also to be on a statin at 40 mg daily and was followed up by physical occupational as well as speech therapy. All therapy services recommended ongoing rehab at discharge and she was accepted and approved for rehab. She was able to be discharged in stable condition on 08/22/2024 to the acute rehab service here at the hospital. She will need follow-up with neurology and her primary care physician as well as cardiology after discharge. 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 coli UTI Paroxysmal A-fib with mild RVR CKD stage IIIb Essential hypertension Osteoarthritis Mild cognitive impairment Physical Exam Const alert, no apparent distress, average body habitus and well nourished Constitutional Narrative: Very pleasant elderly, sitting up in bed, appears comfortable, nontoxic, on phone with her daughter, nursing at bedside General Appearance: cooperative, comfortable, well kempt and well developed HEENT normocephalic, head/scalp atraumatic and moist oral mucous membranes; Negative for hearing grossly normal bilaterally HEENT Narrative: Mallampati 2, no thrush, mild hearing loss Eyes PERRL, EOMs intact bilaterally and conjunctivae normal Eyes Narrative: No scleral icterus Neck no lymphadenopathy and supple Neck Narrative: trachea midline, no thyroid enlargement Resp normal respiratory effort, no retractions, no use of accessory muscles and clear to auscultation bilaterally Auscultation: Negative for rales, rhonchi or wheezes Cardio regular rate, regular rhythm, S1 normal heart sound, S2 normal heart sound, no murmurs, no rub, no gallops and no clicks GI normal to inspection, nondistended, normoactive bowel sounds, soft to palpation and non-tender Extremity no clubbing, cyanosis or edema Extremity Narrative: 2+ pedal and radial pulses Skin skin turgor normal, no jaundice, no petechiae and no mottling Neuro CN's II-XII intact bilaterally Neuro Narrative: dysmetria predominantly right upper extremity, mild expressive aphasia, mild dysarthria Sensorium / Orientation: awake, alert, oriented to person and oriented to place; Negative for oriented to time Speech: Negative for speech normal Psych affect normal Psych Narrative: very pleasant Weight / BMI Weight Weight: 51.8 kg Body Mass Index (BMI) 20.9 ABG / Lab / Microbiology Data 08/22/24 04:23 08/22/24 04:23 Laboratory: Laboratory Results - last 24 hr 08/22/24 04:23: WBC 5.7, RBC 3.52 L, Hgb 11.0 L, Hct 34.7 L, MCV 98.6, MCH 31.3, MCHC 31.7 L, RDW Std Deviation 47.0 H, RDW Coeff of Dalton 13.1, Plt Count 245, MPV 9.6, Sodium 142, Potassium 4.1, Chloride 111 H, Carbon Dioxide 22.3, Anion Gap 9, BUN 31 H, Creatinine 0.78, Estim Creat Clear Calc 39.92 L, Est GFR (MDRD) Non-Af 74, BUN/Creatinine Ratio 39.3 H, Glucose 96, Calcium 9.1 Microbiology: Microbiology 08/18/24 11:35 Urine, Clean Catch Urine Culture - Final Escherichia coli 08/18/24 12:35 Blood Culture (Wb) - Left Hand Blood Culture - Preliminary No growth in 48 hours. 08/18/24 17:00 Blood Culture (Wb) - Anticubital Right Blood Culture - Preliminary No growth in 48 hours. D/C Instructions Discharge Diet: Low fat / Low cholesterol Discharge Activity: Return to Normal Activity DC O2, CPAP, BIPAP Needs Home O2 Discharge instructions: No Meaningful Use Info Meaningful Use Meaningful Use Diagnoses (Choose all that apply): Ischemic CVA CVA Therapy Assessed for PT,OT and/or ST?: Yes Ischemic Stroke Antithrombotic order at d/c?: No Reason antithrombotic not ordered: Treatment not Indicated Dx of Atrial fib/flutter?: Yes Anticoagulant at discharge?: Yes Statin Dosing Therapy Reference: STATIN DOSE THERAPY REFERENCE: * Patients > 75 years receive moderate or high dose statin therapy. * Patients 75 years or YOUNGER should receive HIGH intensity statin dose unless contraindicated. You will be required to document reason for non-treatment if statin daily dose does not meet guidelines. HIGH DOSE STATIN THERAPY DAILY Atorvastatin > than or = to 40 mg Rosuvastatin > than or = to 20 mg Amlodipine + Atorvastatin > than or = to 2.5/40 mg Ezetimibe + Simvastatin 10/80 mg Simvastatin 80mg Statins at discharge?: Yes Primary Dx Acute Ischemic CVA?: Yes Discharge Plan Admission Admit Date/Time: 08/18/24 13:06 Primary Reason for Your Visit: Confusion/dysarthria/dysmetria right-sided Attending Provider: Mara Mar Primary Care Provider: Tasha Deutsch Consulting Providers: Harley Nunez; Liu Woody; Isa Cruz; Maki López; Janice Ledesma; Jeronimo Trujillo; Maureen Townsend; Efraín Alexis; Lc Salazar; Pravin Lehman; Tyra Bains; Ousmane Cantu; Maggie Collins; Bernabe Foreman; Zoya Alford; Addy Nuno; Melany Henderson; Orlin Ham; Mayra Mar; Luc Machuca Discharge Orders/Prescriptions Prescriptions: New atorvastatin 40 mg Tablet 40 mg PO QHS Qty: 1 0RF acetaminophen 325 mg Tablet 650 mg PO Q4H PRN PRN (Reason: Pain 1-10 Or Fever>99.6) Qty: 0 0RF metoprolol tartrate 50 mg Tablet 25 mg PO BID Qty: 0 0RF Eliquis 5 mg Tablet 2.5 mg PO BID Qty: 0 0RF cephalexin 500 mg Capsule 500 mg PO Q12 Qty: 2 0RF sennosides-docusate sodium [Stimulant Laxative Plus] 8.6-50 mg Tablet 2 tab PO BID PRN PRN (Reason: Constipation) Qty: 0 0RF melatonin 3 mg Tablet 3 mg PO QHS PRN PRN (Reason: Insomnia) Qty: 0 0RF Continued lisinopril 30 mg tablet 30 mg PO DAILY No Action multivitamin [Daily Multi-Vitamin] Tablet 1 tab PO DAILY Referrals / Follow Up: Tasha Deutsch, [facility] [Primary Care Provider] - See Referral Note (1 week after discharge from rehab) Swapnil Balderrama MD [Med Staff - Active Staff] - See Referral Note (4 to 8 weeks for atrial fibrillation) Lamonte Foster MD [Non-Staff -Ordering Privileges] - See Referral Note (Please follow-up in 6 to 8 weeks) Disposition Disposition (needs filled in before D/C Order can be placed): Inpatient Rehab Unit/Facility Charges/Coding Visit Charges Inpatient E&M: 64689 Disch Hosp >30min
[2024-08-22 08:55] VITALS: BP 159/66; PULSE 51; RESP 16; TEMP 36.6; O2SAT 98
[2024-08-22] MEDS: Multivitamins,Therapeutic Tablet 1 TABLET PO (08:59)
[2024-08-22] MEDS: APIXABAN 2.5 MG TABLET (WCH) PO (08:59)
[2024-08-22] MEDS: Cephalexin 500 MG Capsule PO (08:59)
[2024-08-22 09:00] VITALS: BMI 20.9
[2024-08-22] MEDS: Lisinopril 10 MG Tablet 30 MG PO (09:05)
[2024-08-22 11:15] VITALS: BP 125/63; PULSE 51; RESP 16; TEMP 36.6; O2SAT 99
--- NOTE | 2024-08-22 11:40 | NURSING ---
Report called to Emmie, on inpt rehab at this time.
[2024-08-22 12:10] VITALS: BP 125/63; PULSE 51
[2024-08-22] MEDS: Metoprolol Tartrate 25 MG Tablet PO (12:10)
[2024-08-22] MEDS: 0.9% Saline Lock 10 ML Syringe IV (12:11)
== END 2024-08-22 13:56 | DRG 65 ==
LOC: ED 13:15 → PCU 08-19 08:29
PROVIDERS: Admitting Provider Internal Medicine; Emergency Provider Emergency Medicine; PCP Clinical Nurse Specialist Adult Health; Visit Provider Internal Medicine
DX: I63.512 Cerebral infarction due to unspecified occlusion or stenosis of left middle cerebral artery (principal); N39.0 Urinary tract infection, site not specified; I67.1 Cerebral aneurysm, nonruptured; I48.91 Unspecified atrial fibrillation; R47.01 Aphasia; B96.20 Unspecified Escherichia coli [E. coli] as the cause of diseases classified elsewhere; N18.32 Chronic kidney disease, stage 3b; I12.9 Hypertensive chronic kidney disease with stage 1 through stage 4 chronic kidney disease, or unspecified chronic kidney disease; I70.0 Atherosclerosis of aorta; E78.5 Hyperlipidemia, unspecified; M19.90 Unspecified osteoarthritis, unspecified site; R47.1 Dysarthria and anarthria; Z79.01 Long term (current) use of anticoagulants; Z79.02 Long term (current) use of antithrombotics/antiplatelets; Z79.82 Long term (current) use of aspirin; R27.8 Other lack of coordination; Z79.899 Other long term (current) drug therapy
CPT/HCPCS: 36415; 70450; 70496; 70498; 70551; 71046; 80048; 80053; 80061; 80076; 80307; 81001; 82077; 83036; 83605; 83735; 84100; 84443; 85025; 85027; 85610; 85730; 87040; 87077; 87086; 87088; 87186; 92507; 92523; 93005; 93306; 94668; 94762; 96360; 96361; 97110; 97116; 97129; 97162; 97166; 97530; 97535; 99283; 99284; Q9957; Q9967; A4216

== ENCOUNTER 2024-08-22 13:55 | Inpatient (IN) | payer MEDICARE, SELFPAY ==
[2024-08-22 14:59] VITALS: BP 131/66; PULSE 56; RESP 17; TEMP 36; O2SAT 96; BMI 21.4
[2024-08-22 17:46] VITALS: BP 125/63; PULSE 77; RESP 17; TEMP 36.3; O2SAT 96
[2024-08-22 21:22] VITALS: BP 142/70; PULSE 62
[2024-08-22] MEDS: Metoprolol Tartrate 25 MG Tablet PO (21:22)
[2024-08-22] MEDS: MELATONIN 3 MG TABLET PO (21:32)
[2024-08-22] MEDS: Cephalexin 500 MG Capsule PO (21:32)
[2024-08-22] MEDS: Atorvastatin Calcium 40 MG Tablet PO (21:32)
[2024-08-22] MEDS: APIXABAN 2.5 MG TABLET (WCH) PO (21:33)
[2024-08-23 02:55] VITALS: BP 162/68; PULSE 54; RESP 20; TEMP 36.4; O2SAT 98
[2024-08-23 05:53] LABS: Hematocrit 34.9 % (37-47); Hemoglobin 10.9 g/dL (12.0-15.0); Mean Corp Hgb Conc 31.2 g/dL (32-36); Mean Corpuscular Hgb 30.9 pg (27.0-32.0); Mean Corpuscular Volume 98.9 fL (81-99); Mean Platelet Vol. 9.5 fl (6.2-12.0); Platelet Count 246 K/mm3 (150-450); RBC Distribution Width CV 12.8 % (11.6-14.6); RBC Distribution Width SD 46.1 fl (35.1-43.9); Red Blood Count 3.53 M/mm3 (4.2-5.4)
[2024-08-23 06:14] LABS: ALB/GLOB Ratio 1.3 RATIO (0.9-2.4); AST(SGOT) 28 U/L (<=31); Alanine Aminotransfer ALT/SGPT 18 U/L (<=34); Albumin, Serum 3.4 g/dL (3.4-4.8); Alkaline Phosphatase 74 U/L (35-104); Anion Gap 10 (5-15); BUN 23 mg/dL (4-19); BUN/Creat Ratio 29.6 RATIO (10-20); Calcium,Total 9.3 mg/dL (7.6-11.0); Carbon Dioxide 22.6 mmol/L (21.0-32.0); Chloride 108 mmol/L (98-108); Creatinine, Serum 0.78 mg/dL (0.70-1.20); EST Glomerular Filtration Rate 74 (>60); Estimated Creatinine Clearance 39.92 ml/min (50-250); Globulin 2.6 g/dL (2.2-4.2); Glucose 101 mg/dL (70-99); Magnesium 2.1 mg/dL (1.5-2.2); Phosphorus 3.9 mg/dL (2.7-4.5); Potassium 4.1 mmol/L (3.3-5.1); Sodium Level 141 mmol/L (133-145); Total Bilirubin 0.23 mg/dL (0.00-1.30)
[2024-08-23] MEDS: Senna/Docusate Sodium 1 Tablet 2 TABLET PO ×2 (07:47→20:31)
[2024-08-23] MEDS: Lisinopril 20 MG Tablet 30 MG PO (07:47)
[2024-08-23] MEDS: Cephalexin 500 MG Capsule PO (07:48)
[2024-08-23] MEDS: APIXABAN 2.5 MG TABLET (WCH) PO ×2 (07:49→20:31)
[2024-08-23] MEDS: Multivitamins,Therapeutic Tablet 1 TABLET PO (07:49)
[2024-08-23 07:50] VITALS: PULSE 68
[2024-08-23] MEDS: Metoprolol Tartrate 25 MG Tablet PO ×2 (07:50→20:32)
--- NOTE | 2024-08-23 11:26 | HP.PCM_ITS ---
HPI - General General Date of Admission: 08/22/24 Date of Service: 08/23/24 Chief Complaint: POST STROKE DEBILITY HPI Narrative BEHZAD HAY, is a 84-year-old F with a past medical history of chronic renal failure stage IV (recent lab with GFR of 74?), history of atrial fibrillation, osteoarthritis and hypertension who presented to the emergency department at [facility] on 08/16/2024 with complaints of confusion. She had previous episodes of confusion but, the family felt this was worse. In the emergency department her NIH was 0 and she was awake, alert and answering questions and following commands. Initial blood pressure was elevated at 164/104. A noncontrast brain CT showed no acute intracranial abnormalities but did show chronic age-related microvascular ischemic changes. Chest x-ray had no acute findings. EKG showed atrial fibrillation with a rate of 100. Workup for infection was negative. She was discharged home and told to follow-up with her primary care provider. She and the family were instructed to return to the emergency department if continued confusion. She returned to the emergency department on 08/18/2024 with continued confusion and weakness of the right arm and leg. Some speech difficulty was also noted. Blood pressure was elevated at 187/89. Lab work was consistent with urinary tract infection. Blood cultures and urine culture were sent. CTA of head and neck showed findings suspicious for acute infarct along the high left parietal lobe and hypodensity in the left caudate nucleus possibly secondary to remote lacunar infarct versus acute ischemia. 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 There was fairly prominent intracranial atherosclerosis with diffuse irregularity and moderate/severe stenoses throughout the small intracranial vasculature. 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 An MRI of the brain was done and showed an acute infarct in the left frontal parietal lobe compatible with an MCA distribution infarct. EKG showed normal sinus rhythm. She was admitted to the hospitalist service. Total cholesterol was 189 and LDL was 112. Triglycerides were normal at 75 and the HDL was good at 62. TSH is 1.6. She was started on ceftriaxone for urinary tract infection pending the results of blood and urine culture. A transthoracic echocardiogram showed the left ventricular systolic function to be normal with an ejection fraction of 65%. The right ventricle was normal. The left atrium was mildly enlarged with a normal right atrium. There was no significant valvular heart disease and diastolic function was indeterminate. No bubble study was done. Teleneurology was consulted and recommended aspirin and Plavix for 3 weeks and then discontinuing Plavix and continuing aspirin alone. She had atrial fibrillation when in the emergency room on 08/16/2024. There was no documentation of A-fib prior to this. Neurology recommended event monitor at discharge from the hospital. They recommended a statin and permissive hypertension for the next 5 to 7 days but good blood pressure control, less than 130/70, following the first week. She was transferred to the acute inpatient rehab unit at [facility] on 08/22/2024 for 3 hours of therapy daily to restore function/independence at or near her level prior to the stroke. She did not see cardiology while in the hospital. All lab drawn this morning was personally reviewed. White blood cell count is normal at 6 and the hemoglobin is 10.9 and stable. Platelets are within normal limits. Sodium is 141 and the potassium is 4.1. The BUN is 23 with a creatinine of 0.78 which is stable. GFR today is 74 with a creatinine clearance of 39.9. Hemoglobin A1c was 5.7 which is very mildly elevated. Calcium, phosphorus and magnesium were all within normal limits and LFTs are unremarkable. Urine culture grew 80,000 100,000 colonies of E. coli that was pansensitive except it was intermediately sensitive to ciprofloxacin. Blood cultures had no growth. She received 5 days of appropriate antibiotics for treatment of simple cystitis. Postvoid residuals have been 150 and 192. Blood pressure since arrival on rehab has ranged from 125/63 to 162/68. The heart rate is ranged from 54-77. She is maintaining appropriate oxygen saturation on room air. She lives alone in an apartment/condo. She has a tub shower. Prior to the stroke was independent with basic activities of daily living. She needed assistance with cooking and etcher photoengraving. [facility] Medical History HTN (hypertension) Thoracic kyphosis Cystitis Stroke/cerebrovascular accident CKD (chronic kidney disease) stage 4, GFR 15-29 ml/min History of atrial fibrillation Fe deficiency anemia Osteoarthritis Home Medications ?Medication ?Instructions ?Recorded ?Last Taken ?Type lisinopril 30 mg tablet 30 mg PO DAILY bp 08/16/24 0 08/18/24 History multivitamin (Daily Multi-Vitamin 1 tab PO DAILY supp 08/16/24 08/18/24 History tablet) acetaminophen 325 mg tablet 650 mg (2 x 325 mg) PO Q4H PRN PRN 08/22/24 Unknown Rx Pain 1-10 Or Fever>99.6 #0 tabs apixaban 5 mg tablet (Eliquis) 2.5 mg (1/2 x 5 mg) PO BID blood 08/22/24 Unknown Rx thinner #0 tabs atorvastatin 40 mg tablet 40 mg PO QHS cholesterol #1 TAB 08/22/24 Unknown Rx cephalexin 500 mg capsule 500 mg PO Q12 atb #2 caps Unknown Rx melatonin 3 mg tablet 3 mg PO QHS Insomnia 5 Unknown History metoprolol tartrate 50 mg tablet 25 mg (1/2 x 50 mg) P O BID bp #0 08/22/24 Unknown Rx tabs sennosides 8.6 mg-docusate sodium 2 tab PO BID Constip ation 08/22/24 Unknown History 50 mg tablet (Stimulant Laxative Plus) Allergy/AdvReac Type Severity Reaction Status Date / Time nitrofurantoin (From Allergy Rash Verified 08/18/24 09:54 Macrobid) Surgical History Hx of tonsillectomy Social History (Updated 08/26/24 @ 11:[address] Behzad Dorado DO) household members: none housing: condominium Smoking Status: Never smoker alcohol intake: never substance use type: does not use ROS Review of Systems ROS Unobtainable: Denies due to encephalopathy, due to endotracheal tube, due to mental condition or due to mental status Constitutional Constitutional: Denies anorexia, change in weight, chills, fatigue, fever(s), night sweats or weakness Eyes Eyes: Denies blurry vision, change in vision, eye pain or loss of vision ENT HEENT: Denies abnormal hearing, dysphagia, headache(s), hearing loss, nasal congestion or sore throat Cardiovascular Cardiovascular: Denies chest pain, dyspnea on exertion, edema, lightheadedness, orthopnea, palpitations, paroxysmal nocturnal dyspnea or syncope Respiratory/Chest Respiratory/Chest: Denies cough, dyspnea, shortness of breath at rest, shortness of breath with exertion or wheezing Gastrointestinal Gastrointestinal: Reports constipation; Denies abdominal pain, diarrhea, dyspepsia, hematemesis, hematochezia, nausea or vomiting Genitourinary Genitourinary: Denies dysuria, hematuria, nocturia, urinary frequency, urinary hesitancy, urinary incontinence or urinary urgency Musculoskeletal Musculoskeletal: Denies back pain, joint pain, joint swelling or neck pain Neurologic Neurologic: Reports confusion, focal weakness and weakness; Denies disequilibrium, dizziness, headache(s), loss of vision, paresthesias, seizures or tremor(s) Psychiatric Psychiatric: Denies anxiety, depression, homicidal ideation or suicidal ideation Endocrine Endocrinology: Denies change in body appearance, polydipsia or polyuria Hematologic/Lymphatic Hematologic/Lymphatic: Denies easy bleeding, easy bruising or lymphadenopathy Allergic/Immunologic Allergic/Immunologic: Denies rhinitis, eczemia or asthma Vital Signs Vital Signs Vital Signs: 08/22/24 14:59 08/22/24 17:46 08/22/24 21:22 Temperature 96.8 F L 97.4 F L Temperature Source Oral Oral Pulse Rate 56 L 77 62 Respiratory Rate 17 17 Respiratory Effort Respiratory Depth Respiratory Pattern Blood Pressure 131/66 H 125/63 H 142/70 H Blood Pressure Mean 87 83 Blood Pressure Source Monitor Monitor Blood Pressure Position Sitting Semi-Fowlers Blood Pressure Location Right Arm Left Arm Pulse Ox 96 96 Oxygen Delivery Method Room Air Room Air 08/22/24 21:41 08/23/24 02:55 08/23/24 07:50 Temperature 97.5 F L Temperature Source Oral Pulse Rate 54 L 68 Respiratory Rate 20 H Respiratory Effort Normal Non-Labored Respiratory Depth Normal Respiratory Pattern Normal Blood Pressure 162/68 H Blood Pressure Mean 99 Blood Pressure Source Monitor Blood Pressure Position Semi-Fowlers Blood Pressure Location Left Arm Pulse Ox 98 Oxygen Delivery Method Room Air Room Air Weight Weight: 136 lb 10.986 oz Body Mass Index (BMI) 21.4 Indicators for Scoring Admitted with or Primary Diagnosis of CVA/Stroke: Yes Hx of CVA/Stroke: Yes Modified Jessica Score MRS Score at time of Evaluation: 4-Moderate/severe disability NIHSS NIHSS 1a. Level of Consciousness: 0 - Alert; keenly responsive 1b. LOC Questions: 2 - Answers NEITHER question correctly 1c. LOC Commands: 1 - Performs ONE task correctly 2. Best Gaze: 0 - Normal 3. Visual: 0 - No visual loss 4. Facial Palsy: 1 - Minor paralysis (flattened nasolabial fold, asymmetry on smiling) 5a. Left Arm: 0 - No drift; arm holds 90 (or 45) degrees for full 10 seconds 5b. Right Arm: 1 - Drift; arm drifts downward but doesn?t hit the bed (pronator drift with the RUE also) 6a. Left Le - No drift; leg holds 30-degree position for full 5 seconds 6b. Right Le - No drift; leg holds 30-degree position for full 5 seconds 7. Limb Ataxia: 2 - Present in 2 limbs (R arm and leg) 8. Sensory: 0 - Normal; no sensory loss 9. Best Language: 1 - [id number] aphasia; (trouble word finding and also trouble following commands. Able to read all the words on NIHSS scoring and all the sentences. able to tell me what was going on in the picture and name all the objects.) 10. Dysarthria: 1 = [id number] dysarthria; 11. Extinction and Inattention: 1 - Visual, tactile, auditory, spatial, or personal inattention; (No visual exticntion. Difficult to tell if she had tactile extinction.......she was unable to understand what I was asking her to do and then became overwhelmed. ) Total: 10 Stroke Questions Stroke Team Activated: No Physical Exam Const alert Constitutional Narrative: Oriented to the year and where she is is and to person. could not tell me her age or the month. Knows that she is here for a stroke. Able to follow some simple commands and not others......I needed to give verbal and visual cues and at times needed physical cuing to show her what I was asking her to do. General Appearance: cooperative, comfortable, well kempt and well developed HEENT head/scalp atraumatic and hearing grossly normal bilaterally HEENT Narrative: MM are dry. NO evidence of thrush. Tongue deviates a little to the R when protruded. Eyes PERRL, EOMs intact bilaterally, conjunctivae normal and no scleral icterus Eyes Narrative: No discharge from the eyes and no mattering of the eyelashes Neck supple, No nodes and no carotid bruits General: trachea midline Chest Chest: symmetrical chest wall rise Resp normal respiratory effort and normal air movement Resp Narrative: initially had crackles in both bases but, after several deep breaths the lungs were CTA with good air exchange. No wheezing and she is not tachypneic. Effort and Inspection: able to speak in complete sentences Cardio regular rate, regular rhythm, S1 normal heart sound, S2 normal heart sound, no rub and no gallops Cardio Narrative: No ectopy. she has either a bruit or a MM at the LVOT. good pulse when I raise her L arm and she had no tingling with elevation. She is known to have a dilated aortic root. Denies pain in the LUE. GI normal to inspection, nondistended, normoactive bowel sounds, soft to palpation and non-tender GI Narrative: No guarding with palpation. no CVA tenderness Narrative: Denies dysuria. C/O urinary urge incontinence that predated the CVA. Back/Spine no CVA tenderness Back/Spine Narrative: She has kyphosis. Extremity no calf tenderness and no pedal edema Extremity Narrative: pedal pulses are decreased. 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 No redness and no DC. Some dryness of the heels but, no redness or breakdown. Some dependent rubor. Skin Rashes: no rashes Hair: normal Neuro Neuro Narrative: Alert. Oriented to person and after a few tries could tell me the year. She knows where she is and why she is here. Having a hard time following simple commands at times. Needed visual, verbal and physical cues. Very mild right facial droop. Tongue deviates a small amount to the right side. The palate elevates symmetrically. Decreased shoulder shrug on the right. No visual field cuts. No visual extinction. Mild decrease in strength with a slight amount of drift in the right upper extremity. She has pronator drift with the right upper extremity and is unable to use her hand efficiently to feed herself. No drift in the left upper extremity with good strength. She has ataxia with the right upper extremity and the right lower extremity. Could not adequately test for tactile extinction because she is unable to understand what I want her to do. No sensory loss. Having a lot of difficulty with word finding at times. Family has noticed the confusion more than anything else. No tremors. Psych cooperative, affect normal, denies hallucinations, denies homicidal ideation and denies suicidal ideation Appearance: grossly normal, appropriate and well kempt Attitude: calm, engaged, No withdrawn, No uncooperative and No agitated Activity / Motor Behavior: appropriate eye contact; Negative for psychomotor agitation or psychomotor slowing Results Lab / Micro Data 08/23/24 05:14 08/23/24 05:14 Labs: Laboratory Results - last 24 hr 08/23/24 05:14: WBC 6.0, RBC 3.53 L, Hgb 10.9 L, Hct 34.9 L, MCV 98.9, MCH 30.9, MCHC 31.2 L, RDW Std Deviation 46.1 H, RDW Coeff of Dalton 12.8, Plt Count 246, MPV 9.5, Sodium 141, Potassium 4.1, Chloride 108, Carbon Dioxide 22.6, Anion Gap 10, BUN 23 H, Creatinine 0.78, Estim Creat Clear Calc 39.92 L, Est GFR (MDRD) Non-Af 74, BUN/Creatinine Ratio 29.6 H, Glucose 101 H, Calcium 9.3, Phosphorus 3.9, Magnesium 2.1, Total Bilirubin 0.23, AST 28, ALT 18, Alkaline Phosphatase 74, Total Protein 6.0, Albumin 3.4, Globulin 2.6, Albumin/Globulin Ratio 1.3 Assessment & Plan Assessment/Plan (1) Debility: (2) Ischemic cerebrovascular accident (CVA): (3) Aphasia complicating stroke: (4) Acute right-sided weakness: (5) 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: (6) Ataxia due to acute cerebrovascular disease: (7) Dysarthria: (8) Paroxysmal atrial fibrillation: (9) Chronic anticoagulation: (10) HTN (hypertension): QUALIFIERS: Hypertension type: primary hypertension Qualified Code(s): I10 - Essential (primary) hypertension (11) Dyslipidemia: (12) Thoracic kyphosis: QUALIFIERS: Kyphosis type: unspecified Qualified Code(s): M40.204 - Unspecified kyphosis, thoracic region (13) Normochromic normocytic anemia: PLAN: Plan PLAN PT for gait stability OT for ADL's ST for evaluation Analgesics as needed Bowel protocol Fall precautions Assess for Anxiety/Depression GI prophylaxis -not necessary at this time. She denies nausea/vomiting/epigastric pain/heartburn DVT prophylaxis -continue apixaban 2.5 mg twice daily for chronic anticoagulation for paroxysmal atrial fibrillation. Follow up with PCP, cardiology and neurology following DC from Rehab AM lab including CMP, CBC, Mag and Phos - all personally reviewed. Laxatives given for constipation and started on stool softeners. Not on vitamin D or calcium. vitamin D level is borderline low at 35. Will add a vitamin D supplement to the drug regimen. Ask pt and family if she has ever had a DEXA........she has increased kyphosis and bone demineralization on the CXR done recently Repeat lipids and a liver panel in 6 weeks. she has finished an appropriate course of antibiotics for UTI. Charges/Coding Visit Charges Inpatient E&M: 50956 Init Hosp L3
--- NOTE | 2024-08-23 11:51 | PCM.RU.PYE ---
Admission Information Primary Diagnosis:: POST STROKE DEBILITY Status Changes from Prescreening?: No changes Identified Actual Problem List:: UTI, Skin Intergrity, Cognitve Impr/Memory Loss, Bladder Incontinence, Mobility Impaired, Self Care Deficit, Know.Dfct/Disease Process, BP, Hypertension and Alteration-Leisure Activ. Potential Problem List:: DVT, Bleeding, Infection, UTI, Aspiration, Falls, Skin Integrity and Depression Risk of Complications DVT: SANTOSH Hose and - (Apixaban 2.5 mg twice daily) Bleeding: Monitor Lab Values, Nursing to Teach Precautions for anti-coagulation therapy., Wound, if applicable, to be assessed every shift. and Stroke patients assessed for lethargy or change in status. Infection: Clinical Staff to Monitor for S/S of infection: and S/S of infection include fever, redness, warmth, etc. Urinary Tract Infection: Monitor for frequency, burning, discomfort, or incontinence. and Nursing will obtain urine sample for urinalysis and C&S when ordered. Aspiration: Clinical staff will monitor for coughing, drooling, congestion., Speech will evaluate swallowing and dsyphasia. and Nursing will monitor patient swallowing during meals. Falls: Patient will be evaluated for Fall Precautions and Patient will be placed on Fall Precautions as indicated per protocol. Skin Breakdown: Nursing will assess skin daily using assessment tool. and Nursing will place on Skin Breakdown Precautions as indicated. Pain: Clinical staff will assess patient's pain level per protocol., Medications will be given, if needed, and the pain level reassessed. and Other methods: Massage, distraction, decrease stimulus, etc. used PRN. Plan of Care Patient requires physician specializing in physical medicine and rehab oversight to provide close medical supervision of rehab issues including: Pain Management, Sleep Problems, Bowel and Bladder, Medical and co-morbidity Management, DVT prophylaxis, Rehabilitation Leadership and Coordination of treatment team Patient needs Physical Therapy: For a minimum of 1 hour and At least 5 out of 7 days Patient needs Physical Therapy to improve:: Mobility, Strengthening, Transfers, Stretching, ROM, Endurance, Stairs, Gait and Balance Patient needs Occupational Therapy: For a minimum of 1 hour and At least 5 out of 7 days Patient needs Occupational Therapy to improve ADL's incl.: Eating, Grooming, Bathing, Dressing, Toileting, Toilet transfers, Community Reintegration, Higher functioning activities, Household tasks, Adaptive Equipment, Splinting and Other activities as determined Patient requires speech therapy: For a minimum of 1 hour and At least 5 out of 7 days Patient requires speech therapy for: Swallowing, Cognition, Language Skills and Compensatory Strategies Patient requires 24/ Rehabilitation Nursing for: Pain Issues, Identifying and preventing risk factors, Monitoring and reporting current medical conditions, Assisting with ambulation, transfer, and all ADL's, Teaching patients about disease process and medications, Family teaching, Providing safe environment, Bowel and Bladder Issues, Skin integrity and Medication Management Patient needs Supervisor Grading/ Case Management for: Discharge Planning, Arranging Home Equipment or Services and Family Interventions Patient needs Dietary and Nutrition Services for: Adequate Nutrition, Nutritional Supplements and Nutritional Education Goals Goals Patient will remain: free from falls Patient will perform eating at: MOD I level of assist. Patient will perform bed mobility at: MOD I level of assist. Patient will complete transfers from bed to chair at: - (Supervision) Patient will ambulate: - (400 feet with rollator walker on various surfaces at supervision) Patient will complete upper body dressing at: - (Set up) Patient will complete lower body dressing at: - (Supervision with adaptive equipment as needed) Patient will complete toilet transfer at: - (Supervision) Patient will complete toileting at: - (Supervision) Patient will perform bathing at: - (Upper body bathing at set up and lower body bathing at supervision with adaptive equipment as needed) Patient will perform Tub/Shower transfer at: - (Supervision) Patient will complete grooming at: - (Supervision while standing at the sink) Patient will achieve: - (1 curb step was 2 handrails to allow access to her home entrance) Patient will have pain level of: of 3 or less Patient's skin will: remain intact Patient will receive: adequate nutrition. Discharge Planning Pt Prognosis for Sig. Practical Improv. w/in Reasonable Time: Good Estimated Length of stay (days): 21 Anticipated D/C Destination: Assisted Living Facility (suspected she will need assisted living or home with family - Needing supervision with ADL's now for bathing, dressing, toileting) Was Preadmission Assessment Accurate?: Yes
[2024-08-23 17:54] VITALS: BP 148/71; PULSE 59; RESP 17; TEMP 36.6; O2SAT 97
[2024-08-23 20:29] VITALS: BP 139/64; PULSE 55
[2024-08-23 20:32] VITALS: PULSE 55
[2024-08-23] MEDS: MELATONIN 3 MG TABLET PO (20:32)
[2024-08-23] MEDS: Atorvastatin Calcium 40 MG Tablet PO (20:32)
[2024-08-23 22:00] VITALS: RESP 15; O2SAT 95
[2024-08-23 23:52] LABS: Vitamin D,25 Hydroxy 35.6 ng/mL (30-100)
[2024-08-24] VITALS (8 sets, daily range): BP systolic 132–143; BP diastolic 54–68; PULSE 55–62; RESP 16–58; TEMP 36.5–36.6; O2SAT 92–96; BMI 21.4
[2024-08-24] MEDS: 0.9% Saline Lock 10 ML Syringe IV ×2 (00:16→20:44)
[2024-08-24] MEDS: Lisinopril 20 MG Tablet 30 MG PO (08:32)
[2024-08-24] MEDS: Multivitamins,Therapeutic Tablet 1 TABLET PO (08:32)
[2024-08-24] MEDS: APIXABAN 2.5 MG TABLET (WCH) PO ×2 (08:32→20:42)
[2024-08-24] MEDS: Senna/Docusate Sodium 1 Tablet 2 TABLET PO (08:32)
[2024-08-24] MEDS: Metoprolol Tartrate 25 MG Tablet PO ×2 (08:35→20:41)
[2024-08-24] MEDS: Atorvastatin Calcium 40 MG Tablet PO (20:41)
[2024-08-24] MEDS: MELATONIN 3 MG TABLET PO (20:42)
[2024-08-25] VITALS (7 sets, daily range): BP systolic 116–142; BP diastolic 56–82; PULSE 54–63; RESP 16–63; TEMP 36.7–37; O2SAT 94–97; BMI 21.4
[2024-08-25] MEDS: APIXABAN 2.5 MG TABLET (WCH) PO ×2 (07:58→21:03)
[2024-08-25] MEDS: Metoprolol Tartrate 25 MG Tablet PO ×2 (07:58→21:06)
[2024-08-25] MEDS: Lisinopril 20 MG Tablet 30 MG PO (07:59)
[2024-08-25] MEDS: Multivitamins,Therapeutic Tablet 1 TABLET PO (08:00)
--- NOTE | 2024-08-25 15:42 | CHAPLAIN ---
Type of Pastoral Visit ___ Initial Visit _x__ Follow-up Visit ___ On-call Visit ___ General Patient Visit ___ Spiritual Assessment ___ Family Conference ___ Bereavement ___ Rapid Response ___ Code Blue ___ Other (describe below) Pastoral Care Referral From _x__ Patient ___ Family ___ Nurse ___ Physician ___ Plant Maintenance Worker ___ Operations [place] ___ Other (describe below) Sacrament/Intervention _x__ Active listening ___ Anointing ___ Rastafarian ___ Bereavement ___ Communion _x__ Nasreen exploration ___ ___ Life review _x__ Prayer ___ Reconciliation ___ Sacrament of Sick _x__ Supportive presence ___ Wedding ___ Other (describe below) Pastoral Comments patient was seen last week in PCU and now she is recovering from her stroke; pt is welcoming and talkative; pt speaks of her family and her orthodoxy; pt has devotional books to read, almaguer to enjoy, and a positive attitude for the future; prayer and presence given
[2024-08-25] MEDS: MELATONIN 3 MG TABLET PO (21:04)
[2024-08-25] MEDS: Atorvastatin Calcium 40 MG Tablet PO (21:04)
[2024-08-25] MEDS: 0.9% Saline Lock 10 ML Syringe IV (21:12)
[2024-08-26 06:00] VITALS: BP 153/61; PULSE 52; RESP 15; TEMP 36.6; O2SAT 97
[2024-08-26 07:57] VITALS: PULSE 52
[2024-08-26] MEDS: Lisinopril 20 MG Tablet 30 MG PO (07:57)
[2024-08-26] MEDS: Metoprolol Tartrate 25 MG Tablet PO ×2 (07:57→20:40)
[2024-08-26] MEDS: Multivitamins,Therapeutic Tablet 1 TABLET PO (07:58)
[2024-08-26] MEDS: APIXABAN 2.5 MG TABLET (WCH) PO ×2 (07:58→20:40)
--- NOTE | 2024-08-26 12:04 | PCM.PROGNOTE ---
Subjective Subjective Kathryn was seen on team rounds today. Her family participated by phone. Afebrile VSS -blood pressure over the past 24 hours has ranged from 116/56 to 153/61. The heart rate has ranged from 52-63. She is taking metoprolol 25 mg twice daily. She denies lightheadedness. Maintaining appropriate oxygen saturation on RA Oral intake - FOOD good FLUIDS fair After laxatives she had 4 bowel movements on 08/24/2024 but then had none on 514 and she had 1 today. Discussed with nursing - no problems that need addressed Reviewed the THERAPY notes - scored only 7/30 on MoCA and 58/'100 on the MAST Medication list reviewed. Having trouble with concentration and she is easily distracted. Denies headache, lightheadedness, chest pain, palpitations, shortness of breath, nausea/vomiting/epigastric pain, dysuria and calf pain. Objective Data Objective Data Vital Signs: Vital Signs Temp Pulse Resp BP Pulse Ox O2 Del Method 97.8 F 52 L 15 153/61 H 97 Room Air 08/26/24 06:00 08/26/24 07:57 08/26/24 06:00 08/26/24 06:00 08/26/24 06:00 08/26/24 06:00 Oxygen Delivery Method Room Air Weight: 136 lb 10.986 oz Body Mass Index (BMI) 21.4 Intake & Output: Intake and Output for Last 24 Hours 08/24/24 08/25/24 08/26/24 23:59 23:59 23:59 Intake Total 1270 / 1270 1240 / 1240 710 / 710 Output Total 1250 / 1250 1400 / 1400 750 / 750 Balance 20 / 20 -160 / -160 -40 / -40 Lab / Micro Data 08/27/24 05:31 08/27/24 05:31 Physical Exam Const alert General Appearance: cooperative Resp normal respiratory effort, normal air movement and clear to auscultation bilaterally Resp Narrative: Diminished in the bases. Effort and Inspection: able to speak in complete sentences Cardio regular rate, regular rhythm, no rub and no gallops Cardio Narrative: No ectopy. she has either a bruit or a MM at the LVOT. good pulse when I raise her L arm and she had no tingling with elevation. She is known to have a dilated aortic root. Denies pain in the LUE. GI normal to inspection, nondistended, normoactive bowel sounds, soft to palpation and non-tender GI Narrative: No guarding with palpation. Extremity no calf tenderness and no pedal edema Extremity Narrative: pedal pulses are decreased. 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 No redness and no DC. Some dryness of the heels but, no redness or breakdown. Some dependent rubor. 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 Continue therapy 2. Check a Hemoccult stool 3. Recheck an H&H and BMP in the a.m. 4. Encouraged increased fluid intake 5. Recommend a DEXA post Dc from rehab. Charges/Coding Visit Charges Inpatient E&M: 00633 Subs Hosp L2
--- NOTE | 2024-08-26 12:49 | CASEMGMT ---
Social Work IDT met with patient at bedside, then conference call with Ellen PATEL and Aditi aggarwal, for Team meeting. Discussed patient's progress in PT/OT/ST/SN. Educated to [facility] insurance with NRD 08/27 and continued stay is not guaranteed with each review, and advanced notice is not required. Pt lives at home alone and family assists with IADLs, however, currently IDT is recommending 24/7 care, likely in an AL. It is undetermined if pt will be able to return home alone. Pt is needing supervision with all functional tasks and someone to take over meds/finances. Pt struggles with expressive aphasia and cognitive. SW educated to OOP cost with AL and skilled HHC to continue with therapy. Family unsure what route to take and would like to see how pt progresses. IDT agreed, the goal is for pt to return home, but if she cannot, since the insurance does not provide ample notice, it is recommended to plan for DC proactively. SW provided family direct contact information and will follow up. Will ReTeam weekly. Family expressed understanding. SW will continue to follow. Sharda Lopes CANDY PACKER INDUSTRIAL RELATIONS OFFICER
[2024-08-26 17:00] VITALS: BMI 21.4
[2024-08-26 17:55] VITALS: BP 127/52; PULSE 53; RESP 17; TEMP 37; O2SAT 97
[2024-08-26 20:40] VITALS: PULSE 65
[2024-08-26] MEDS: Atorvastatin Calcium 40 MG Tablet PO (20:40)
[2024-08-26] MEDS: MELATONIN 3 MG TABLET PO (20:40)
[2024-08-26] MEDS: Senna/Docusate Sodium 1 Tablet 2 TABLET PO (20:40)
[2024-08-27 05:54] LABS: Hematocrit 40.8 % (37-47); Hemoglobin 13.3 g/dL (12.0-15.0)
[2024-08-27 06:00] VITALS: BP 147/77; PULSE 81; RESP 18; TEMP 36.4; O2SAT 95; BMI 21.1
[2024-08-27 06:20] LABS: Anion Gap 12 (5-15); BUN 21 mg/dL (4-19); BUN/Creat Ratio 22.9 RATIO (10-20); Calcium,Total 9.5 mg/dL (7.6-11.0); Carbon Dioxide 22.6 mmol/L (21.0-32.0); Chloride 107 mmol/L (98-108); EST Glomerular Filtration Rate 63 (>60); Estimated Creatinine Clearance 38.86 ml/min (50-250); Glucose 109 mg/dL (70-99); Potassium 4.4 mmol/L (3.3-5.1); Sodium Level 141 mmol/L (133-145)
[2024-08-27 07:40] VITALS: O2SAT 94
[2024-08-27 08:16] VITALS: PULSE 81
[2024-08-27] MEDS: Cholecalciferol (VIT D3) 25 MCG TABLET (1,000 UNITS) PO (08:16)
[2024-08-27] MEDS: Lisinopril 20 MG Tablet 30 MG PO (08:16)
[2024-08-27] MEDS: Metoprolol Tartrate 25 MG Tablet PO ×2 (08:16→20:29)
[2024-08-27] MEDS: APIXABAN 2.5 MG TABLET (WCH) PO ×2 (08:17→20:30)
[2024-08-27] MEDS: Multivitamins,Therapeutic Tablet 1 TABLET PO (08:17)
[2024-08-27 13:14] VITALS: BMI 21.1
[2024-08-27 17:26] VITALS: BP 115/81; PULSE 86; RESP 16; TEMP 37; O2SAT 96
[2024-08-27 20:29] VITALS: PULSE 85
[2024-08-27] MEDS: Atorvastatin Calcium 40 MG Tablet PO (20:29)
[2024-08-27] MEDS: MELATONIN 3 MG TABLET PO (20:29)
[2024-08-28 00:06] VITALS: BMI 21.1
[2024-08-28 03:44] VITALS: BP 111/66; PULSE 67; RESP 18; TEMP 36.1; O2SAT 97
[2024-08-28 08:15] VITALS: PULSE 71
[2024-08-28] MEDS: Senna/Docusate Sodium 1 Tablet 2 TABLET PO (08:15)
[2024-08-28] MEDS: Cholecalciferol (VIT D3) 25 MCG TABLET (1,000 UNITS) PO (08:15)
[2024-08-28] MEDS: APIXABAN 2.5 MG TABLET (WCH) PO ×2 (08:15→22:50)
[2024-08-28] MEDS: Multivitamins,Therapeutic Tablet 1 TABLET PO (08:15)
[2024-08-28] MEDS: Metoprolol Tartrate 25 MG Tablet PO ×2 (08:15→20:49)
[2024-08-28] MEDS: Lisinopril 20 MG Tablet 30 MG PO (08:15)
[2024-08-28 08:18] VITALS: BP 146/63; PULSE 71
[2024-08-28 18:00] VITALS: BP 149/62; PULSE 65; RESP 17; TEMP 36.8; O2SAT 97
[2024-08-28 20:49] VITALS: BP 115/57; PULSE 67
[2024-08-28] MEDS: MELATONIN 3 MG TABLET PO (20:49)
[2024-08-28] MEDS: Atorvastatin Calcium 40 MG Tablet PO (20:49)
[2024-08-29 05:31] VITALS: BP 124/50; PULSE 57; RESP 16; TEMP 36.4; O2SAT 98
[2024-08-29 08:23] VITALS: BP 124/52; PULSE 62
[2024-08-29] MEDS: APIXABAN 2.5 MG TABLET (WCH) PO ×2 (08:23→20:59)
[2024-08-29] MEDS: Lisinopril 20 MG Tablet 30 MG PO (08:23)
[2024-08-29] MEDS: Metoprolol Tartrate 25 MG Tablet PO ×2 (08:23→21:00)
[2024-08-29] MEDS: Multivitamins,Therapeutic Tablet 1 TABLET PO (08:24)
[2024-08-29] MEDS: Senna/Docusate Sodium 1 Tablet 2 TABLET PO (08:24)
[2024-08-29] MEDS: Cholecalciferol (VIT D3) 25 MCG TABLET (1,000 UNITS) PO (08:24)
[2024-08-29 16:53] VITALS: BMI 21.1
[2024-08-29 17:03] VITALS: BP 120/50; PULSE 62; RESP 16; TEMP 36.6; O2SAT 96
[2024-08-29] MEDS: Atorvastatin Calcium 40 MG Tablet PO (20:59)
[2024-08-29] MEDS: MELATONIN 3 MG TABLET PO (20:59)
[2024-08-29 21:00] VITALS: PULSE 59
[2024-08-29 21:01] VITALS: BP 156/70; PULSE 59
[2024-08-29 22:00] VITALS: PULSE 59; RESP 16; O2SAT 95
[2024-08-29 23:25] VITALS: BMI 21.1
[2024-08-30 06:00] VITALS: BP 127/80; PULSE 85; RESP 14; TEMP 36.4; O2SAT 95
[2024-08-30 07:42] VITALS: PULSE 85
[2024-08-30] MEDS: Multivitamins,Therapeutic Tablet 1 TABLET PO (07:42)
[2024-08-30] MEDS: Lisinopril 20 MG Tablet 30 MG PO (07:42)
[2024-08-30] MEDS: APIXABAN 2.5 MG TABLET (WCH) PO ×2 (07:42→21:19)
[2024-08-30] MEDS: Cholecalciferol (VIT D3) 25 MCG TABLET (1,000 UNITS) PO (07:42)
[2024-08-30] MEDS: Metoprolol Tartrate 25 MG Tablet PO ×2 (07:42→21:20)
--- NOTE | 2024-08-30 09:24 | PCM.PROGNOTE ---
Subjective Subjective Afebrile VSS -blood pressure over the weekend has ranged from 115/57 to 156/70. Over the past 24 hours it has been within goal with the exception of 1 reading of 156/70. Blood pressure this morning is 127/80. Heart rate has ranged from 59-85. Maintaining appropriate oxygen saturation on RA Oral intake - FOOD good FLUIDS fair to good Discussed with nursing - no problems that need addressed. Sleeping well at night per nursing. Reviewed the THERAPY notes-making progress Medication list reviewed. HGB this weekend was 13.3? Up from 10.9? Stool is heme + She is on Eliquis. Kathryn denies cephalgia, lightheadedness, chest pain, shortness of breath, cough, nausea/vomiting/abdominal pain, dysuria and calf tenderness. She has no complaints today. She is no longer c/o pain in the left lateral foot since we have been using a mepilex pad. Objective Data Objective Data Vital Signs: Vital Signs Temp Pulse Resp BP Pulse Ox O2 Del Method 97.6 F L 85 14 127/80 H 95 Room Air 08/30/24 06:00 08/30/24 07:42 08/30/24 06:00 08/30/24 06:00 08/30/24 06:00 08/30/24 06:00 Oxygen Delivery Method Room Air Weight: 115 lb 8.356 oz Body Mass Index (BMI) 21.1 Intake & Output: Intake and Output for Last 24 Hours 08/28/24 08/29/24 08/30/24 23:59 23:59 23:59 Intake Total 965 / 965 1930 / 1930 360 / 360 Output Total 1000 / 1000 1830 / 1830 1200 / 1200 Balance -35 / -35 100 / 100 -840 / -840 Lab / Micro Data 08/30/24 10:35 08/30/24 10:35 Micro: Microbiology 08/27/24 09:05 Stool Stool Occult Blood (ALONSO) - Final Occult Blood Positive Physical Exam Const alert, oriented x3 and no apparent distress General Appearance: cooperative Resp normal respiratory effort, normal air movement and clear to auscultation bilaterally Resp Narrative: Diminished in the bases. Effort and Inspection: able to speak in complete sentences Cardio no rub and no gallops Cardio Narrative: Irregular irregular rhythm with controlled ventricular response. She has either a bruit or a MM at the LVOT. Known paroxysmal atrial fibrillation. GI normal to inspection, nondistended, normoactive bowel sounds, soft to palpation and non-tender GI Narrative: No guarding with palpation. 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 Continue therapy 2. BMP and CBC now Charges/Coding Visit Charges Inpatient E&M: 50970 Subs Hosp L1
[2024-08-30 10:51] LABS: Hematocrit 39.6 % (37-47); Hemoglobin 12.7 g/dL (12.0-15.0); Mean Corp Hgb Conc 32.1 g/dL (32-36); Mean Corpuscular Hgb 31.4 pg (27.0-32.0); Mean Corpuscular Volume 97.8 fL (81-99); Mean Platelet Vol. 8.7 fl (6.2-12.0); Platelet Count 364 K/mm3 (150-450); RBC Distribution Width CV 12.5 % (11.6-14.6); RBC Distribution Width SD 45.1 fl (35.1-43.9); Red Blood Count 4.05 M/mm3 (4.2-5.4); White Blood Count 6.6 K/mm3 (4.4-11.0)
[2024-08-30 11:13] LABS: Anion Gap 8 (5-15); BUN 17 mg/dL (4-19); BUN/Creat Ratio 20.3 RATIO (10-20); Calcium,Total 9.6 mg/dL (7.6-11.0); Carbon Dioxide 25.3 mmol/L (21.0-32.0); Chloride 106 mmol/L (98-108); Creatinine, Serum 0.86 mg/dL (0.70-1.20); EST Glomerular Filtration Rate 66 (>60); Estimated Creatinine Clearance 37.14 ml/min (50-250); Glucose 107 mg/dL (70-99); Potassium 4.2 mmol/L (3.3-5.1); Sodium Level 139 mmol/L (133-145)
[2024-08-30 13:52] VITALS: BMI 21.1
--- NOTE | 2024-08-30 16:03 | CASEMGMT ---
Social Work SW received call from dtr requesting additional information on DC options. Dtr asked several clarifying questions. SW answered questions and explained differences between AL and SNF. Options for DC are nonskilled HHC, skilled HHC; AL with skilled HHC; SNF pending precert and skilled therapy, and cost associated with each option. Dtr confirmed the goal is for pt to return home but pt could benefit from continued skilled therapy. Dtr agreed to have the initial DC plan to SNF, if precert is approved; if denied, pt will DC home as pt cannot afford AL or SNF OOP. SW accepted. SW offered list of SNFs in preferred geographical area, INN with pt?s insurance, including quality and resource data via [employer]. Dtr accepted and provided email address. SW sent SNF list to dtr's email via [employer] link. Dtr appreciative. SW will continue to follow. Sharda Lopes CABLE WIRER SUPERVISOR LAUNDRY
[2024-08-30 18:00] VITALS: BP 146/78; PULSE 85; RESP 16; TEMP 36.8; O2SAT 96
[2024-08-30 21:19] VITALS: BP 124/64; PULSE 80
[2024-08-30] MEDS: Senna/Docusate Sodium 1 Tablet 2 TABLET PO (21:19)
[2024-08-30] MEDS: Atorvastatin Calcium 40 MG Tablet PO (21:19)
[2024-08-30] MEDS: MELATONIN 3 MG TABLET PO (21:19)
[2024-08-30 21:20] VITALS: PULSE 80
[2024-08-30 22:00] VITALS: PULSE 80; RESP 16; O2SAT 95
[2024-08-30 23:40] VITALS: BMI 21.1
[2024-08-31 06:00] VITALS: BP 122/74; PULSE 81; RESP 16; TEMP 36.6; O2SAT 95
[2024-08-31] MEDS: Lisinopril 20 MG Tablet 30 MG PO (08:41)
[2024-08-31] MEDS: APIXABAN 2.5 MG TABLET (WCH) PO ×2 (08:41→21:26)
[2024-08-31] MEDS: Multivitamins,Therapeutic Tablet 1 TABLET PO (08:41)
[2024-08-31] MEDS: Senna/Docusate Sodium 1 Tablet 2 TABLET PO (08:41)
[2024-08-31 08:42] VITALS: PULSE 81
[2024-08-31] MEDS: Cholecalciferol (VIT D3) 25 MCG TABLET (1,000 UNITS) PO (08:42)
[2024-08-31] MEDS: Metoprolol Tartrate 25 MG Tablet PO ×2 (08:42→21:26)
[2024-08-31 09:55] VITALS: PULSE 70; RESP 14
--- NOTE | 2024-08-31 16:25 | PCM.PROGNOTE ---
Subjective Subjective Afebrile VSS - Maintaining appropriate oxygen saturation on RA Oral intake - FOOD good FLUIDS fair to good. She needs encouragement/reminders to increase fluid intake but when she is reminded she does. Discussed with nursing - no problems that need addressed Reviewed the THERAPY notes Medication list reviewed. Kathryn has no complaints today. She denies lightheadedness, cephalgia, chest pain, shortness of breath, cough, abdominal pain, dysuria and calf tenderness. Objective Data Objective Data Vital Signs: Vital Signs Temp Pulse Resp BP Pulse Ox O2 Del Method 98 F 70 14 122/74 H 95 Room Air 08/31/24 06:00 08/31/24 09:55 08/31/24 09:55 08/31/24 06:00 08/31/24 06:00 08/31/24 09:55 Oxygen Delivery Method Room Air Weight: 115 lb 8.356 oz Body Mass Index (BMI) 21.1 Intake & Output: Intake and Output for Last 24 Hours 08/29/24 08/30/24 08/31/24 23:59 23:59 23:59 Intake Total 1930 / 1930 960 / 1610 1460 / 1460 Output Total 1830 / 1830 1700 / 1700 1300 / 1300 Balance 100 / 100 -740 / -90 160 / 160 Lab / Micro Data 08/30/24 10:35 08/30/24 10:35 Micro: Microbiology 08/27/24 09:05 Stool Stool Occult Blood (ALONSO) - Final Occult Blood Positive Physical Exam Const alert and no apparent distress Constitutional Narrative: Pleasant, makes good eye contact, very motivated to do therapy and get better General Appearance: cooperative HEENT Mouth: dry mucous membranes Resp normal respiratory effort, normal air movement and clear to auscultation bilaterally Cardio no rub and no gallops Cardio Narrative: Irregular irregular rhythm with controlled ventricular response. She has either a bruit or a MM at the LVOT. Known paroxysmal atrial fibrillation. GI normal to inspection, nondistended, normoactive bowel sounds, soft to palpation and non-tender GI Narrative: No guarding with palpation. 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 Continue therapy 2. Encouraged her to increase her fluid intake 3. Check orthostatics in the a.m Charges/Coding Visit Charges Inpatient E&M: 67578 Subs Hosp L1
[2024-08-31 16:45] VITALS: BMI 21.1
[2024-08-31 18:00] VITALS: BP 117/71; PULSE 84; RESP 17; TEMP 36.6; O2SAT 97
[2024-08-31 21:26] VITALS: BP 133/79; PULSE 84
[2024-08-31] MEDS: MELATONIN 3 MG TABLET PO (21:27)
[2024-08-31] MEDS: Atorvastatin Calcium 40 MG Tablet PO (21:30)
[2024-08-31 23:51] VITALS: BMI 21.1
[2024-08-31 23:58] VITALS: PULSE 85; O2SAT 98
[2024-09-01 06:00] VITALS: BP 105/58; PULSE 63; RESP 16; TEMP 36.3; O2SAT 97
[2024-09-01] MEDS: Multivitamins,Therapeutic Tablet 1 TABLET PO (08:57)
[2024-09-01] MEDS: Senna/Docusate Sodium 1 Tablet 2 TABLET PO (08:57)
[2024-09-01] MEDS: Cholecalciferol (VIT D3) 25 MCG TABLET (1,000 UNITS) PO (08:57)
[2024-09-01] MEDS: Lisinopril 20 MG Tablet 30 MG PO (08:57)
[2024-09-01] MEDS: APIXABAN 2.5 MG TABLET (WCH) PO ×2 (08:57→21:28)
[2024-09-01 08:59] VITALS: PULSE 62
[2024-09-01] MEDS: Metoprolol Tartrate 25 MG Tablet PO ×2 (08:59→21:28)
[2024-09-01 09:02] VITALS: BP 130/60; PULSE 62
[2024-09-01 12:46] VITALS: BMI 21.1
--- NOTE | 2024-09-01 14:58 | NURSING ---
Patient had difficultly using cell phone, called 911 dispatch x2. Hospital security came and seen patient for well check, patient denies any needs/concerns/or problems at this time. Staff assisted with using cellphone and reoriented her to call light system at this time with reminder to call for help when she needs assistance.
[2024-09-01 17:15] VITALS: BP 132/69; PULSE 59; RESP 18; TEMP 36.7; O2SAT 96
[2024-09-01 21:28] VITALS: BP 105/60; PULSE 67
[2024-09-01] MEDS: MELATONIN 3 MG TABLET PO (21:28)
[2024-09-01] MEDS: Atorvastatin Calcium 40 MG Tablet PO (21:28)
[2024-09-02] VITALS: BMI 21.1
[2024-09-02 05:52] VITALS: BP 105/55; PULSE 64; RESP 16; TEMP 36.1; O2SAT 96
[2024-09-02 08:12] VITALS: PULSE 64
[2024-09-02] MEDS: Cholecalciferol (VIT D3) 25 MCG TABLET (1,000 UNITS) PO (08:12)
[2024-09-02] MEDS: Multivitamins,Therapeutic Tablet 1 TABLET PO (08:12)
[2024-09-02] MEDS: Lisinopril 20 MG Tablet 30 MG PO (08:12)
[2024-09-02] MEDS: Metoprolol Tartrate 25 MG Tablet PO ×2 (08:12→20:44)
[2024-09-02] MEDS: APIXABAN 2.5 MG TABLET (WCH) PO ×2 (08:12→20:45)
[2024-09-02 10:00] VITALS: O2SAT 95
[2024-09-02 10:35] VITALS: BP 150/65; BP 156/78; BP 160/75; PULSE 62; PULSE 65; PULSE 66
--- NOTE | 2024-09-02 10:38 | PCM.PROGNOTE ---
Subjective Subjective Kathryn was seen on team rounds today. Kathryn's son Art was present in the room and her daughter participated by phone. All their questions were answered to their satisfaction. Afebrile VSS -blood pressure last night at bedtime and this morning is on the low side at 105/55 to 105/60. Heart rate is ranged from 59-67 over the past 24 hours. She is on a beta-coleman to control heart rate in atrial fibrillation. Maintaining appropriate oxygen saturation on RA Oral intake - FOOD good FLUIDS fluid intake yesterday was 1080. She had 1150 out. Overnight she had 100 and and 700 out for a fluid balance of -600. Fluid balance has been negative the past few days Discussed with nursing - no problems that need addressed. Sleeping well at night. Reviewed the THERAPY notes Medication list reviewed. Kathryn denies cephalgia, lightheadedness, chest pain, shortness of breath, cough, heartburn, nausea/vomiting/abdominal pain, diarrhea/constipation, dysuria and calf tenderness. She is doing quite well in therapy and always pleasant and cooperative. Objective Data Objective Data Vital Signs: Vital Signs Temp Pulse Resp BP Pulse Ox O2 Del Method O2 Flow Rate 97.0 F L 64 16 105/55 L 96 Room Air 2 09/02/24 05:52 09/02/24 08:12 09/02/24 05:52 09/02/24 05:52 09/02/24 05:52 09/02/24 05:52 08/31/24 23:58 Oxygen Flow Rate (L/min) 2 Oxygen Delivery Method Room Air Weight: 115 lb 8.356 oz Body Mass Index (BMI) 21.1 Intake & Output: Intake and Output for Last 24 Hours 08/31/24 09/01/24 09/02/24 23:59 23:59 23:59 Intake Total 1580 / 1580 1080 / 1080 100 / 100 Output Total 1750 / 1750 1150 / 1150 700 / 700 Balance -170 / -170 -70 / -70 -600 / -600 Lab / Micro Data 08/30/24 10:35 08/30/24 10:35 Micro: Microbiology 08/27/24 09:05 Stool Stool Occult Blood (ALONSO) - Final Occult Blood Positive Physical Exam Const alert and no apparent distress General Appearance: cooperative HEENT Mouth: dry mucous membranes Resp normal respiratory effort, normal air movement and clear to auscultation bilaterally Cardio no rub and no gallops Cardio Narrative: Irregular irregular rhythm with controlled ventricular response. She has either a bruit or a MM at the LVOT. Known paroxysmal atrial fibrillation. GI normal to inspection, nondistended, normoactive bowel sounds, soft to palpation and non-tender GI Narrative: No guarding with palpation. 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 Continue therapy 2. Decrease lisinopril to 20 mg -hold the dose if the systolic is less than 110. 3. Continue to encourage increased fluid intake - she is very complaint when we tell her to drink more but, she needs to be reminded at times. 4. Awaiting the results of the orthostatics ordered for today Charges/Coding Visit Charges Inpatient E&M: 91816 Subs Hosp L2
--- NOTE | 2024-09-02 12:49 | CASEMGMT ---
Social Work IDT met with patient and son at bedside, then dtr via conference call, for Team meeting. Discussed patient's progress in PT/OT/ST/SN. Educated to [facility] insurance with NRD 09/02 and continued stay is not guaranteed and advance notice for DC is not required. Discussed pt needing verbal cues for sequencing with OT tasks, though, pt cues herself with PT. ST reports pt's language and cognition improved from severe to moderate thus far. IDT currently recommending 04/11 care. Discussed options for nonskilled HHC, AL or SNF and OOP cost. Explained precert process for SNF. SW inquired to dtr about SNF choices from previously requested list. Dtr selected preferences via [employer] - [facility], [facility], [facility]. SW to place referrals via [employer] and notify of outcome. SW provided information [facility] Support [facility] and education from [facility] on Life After Stroke. Family appreciative. SW will continue to follow for DC planning. - Referrals sent. Sharda Lopes MANAGER DOMESTIC HEAD OF ICT
[2024-09-02 13:01] VITALS: BMI 21.1
[2024-09-02 18:00] VITALS: BP 108/62; PULSE 62; RESP 17; TEMP 36.6; O2SAT 97
[2024-09-02 20:44] VITALS: PULSE 64
[2024-09-02] MEDS: Atorvastatin Calcium 40 MG Tablet PO (20:44)
[2024-09-02] MEDS: MELATONIN 3 MG TABLET PO (20:44)
[2024-09-03 06:00] VITALS: BP 154/63; PULSE 60; RESP 18; TEMP 37.1; O2SAT 97; BMI 21.2
[2024-09-03 07:50] VITALS: BP 154/63; PULSE 60
[2024-09-03] MEDS: APIXABAN 2.5 MG TABLET (WCH) PO ×2 (07:50→21:21)
[2024-09-03] MEDS: Lisinopril 20 MG Tablet PO (07:50)
[2024-09-03] MEDS: Metoprolol Tartrate 25 MG Tablet PO ×2 (07:50→21:21)
[2024-09-03] MEDS: Multivitamins,Therapeutic Tablet 1 TABLET PO (07:51)
[2024-09-03] MEDS: Cholecalciferol (VIT D3) 25 MCG TABLET (1,000 UNITS) PO (07:51)
--- NOTE | 2024-09-03 09:52 | CASEMGMT ---
Social Work SW updated dtr that all 3 SNFs can accept and verified preferences. Dtr confirmed [facility] is first choice and [facility] is second choice. SW updated the SNFs and kept first two choices open for bed availability. Dtr appreciative. Sharda Lopes FREEZER MACHINE OPERATOR METAL SPINNER
[2024-09-03 16:37] VITALS: BMI 21.2
[2024-09-03 18:00] VITALS: BP 120/58; PULSE 58; RESP 16; TEMP 36.4; O2SAT 98
[2024-09-03] MEDS: Atorvastatin Calcium 40 MG Tablet PO (21:20)
[2024-09-03 21:21] VITALS: BP 138/63; PULSE 62
[2024-09-03] MEDS: MELATONIN 3 MG TABLET PO (21:21)
[2024-09-03 22:04] VITALS: BMI 21.2
[2024-09-04 05:29] VITALS: BP 130/74; PULSE 87; RESP 16; TEMP 36.9; O2SAT 96
[2024-09-04 09:27] VITALS: BP 114/62; PULSE 85
[2024-09-04] MEDS: Cholecalciferol (VIT D3) 25 MCG TABLET (1,000 UNITS) PO (09:27)
[2024-09-04] MEDS: APIXABAN 2.5 MG TABLET (WCH) PO ×2 (09:27→21:28)
[2024-09-04] MEDS: Multivitamins,Therapeutic Tablet 1 TABLET PO (09:27)
[2024-09-04] MEDS: Metoprolol Tartrate 25 MG Tablet PO ×2 (09:27→21:28)
[2024-09-04] MEDS: Lisinopril 10 MG Tablet PO ×2 (09:27→21:27)
[2024-09-04 14:25] VITALS: BMI 21.2
[2024-09-04 17:51] VITALS: BP 145/86; PULSE 84; RESP 16; TEMP 37.1; O2SAT 98
[2024-09-04 20:15] VITALS: BMI 21.2
[2024-09-04 21:24] VITALS: BP 111/63; PULSE 87; RESP 16; TEMP 36.9; O2SAT 97
[2024-09-04 21:28] VITALS: BP 111/63; PULSE 87
[2024-09-04] MEDS: MELATONIN 3 MG TABLET PO (21:28)
[2024-09-04] MEDS: Atorvastatin Calcium 40 MG Tablet PO (21:28)
[2024-09-04 22:00] VITALS: PULSE 87; RESP 16; O2SAT 94
[2024-09-05 06:00] VITALS: BP 121/69; PULSE 76; RESP 15; TEMP 36.7; O2SAT 97
[2024-09-05] MEDS: Lisinopril 10 MG Tablet PO ×2 (07:55→21:01)
[2024-09-05] MEDS: Cholecalciferol (VIT D3) 25 MCG TABLET (1,000 UNITS) PO (07:55)
[2024-09-05] MEDS: Multivitamins,Therapeutic Tablet 1 TABLET PO (07:55)
[2024-09-05] MEDS: APIXABAN 2.5 MG TABLET (WCH) PO ×2 (07:55→21:01)
[2024-09-05 07:56] VITALS: BP 127/67; PULSE 81
[2024-09-05] MEDS: Metoprolol Tartrate 25 MG Tablet PO ×2 (07:56→21:02)
--- NOTE | 2024-09-05 08:48 | PCM.PROGNOTE ---
Subjective Subjective Afebrile VSS -blood pressure is well-controlled and at goal. Better control with giving lisinopril 10 mg twice daily rather than 20 mg once daily. Heart rate is within normal limits. Maintaining appropriate oxygen saturation on RA Oral intake - FOOD good FLUIDS good Discussed with nursing - no problems that need addressed Reviewed the THERAPY notes Medication list reviewed. Kathryn has no complaints today. She is sleeping well, has a good appetite and is always willing to do therapy. She denies lightheadedness, chest pain, shortness of breath, calf pain, dysuria, abdominal pain. Objective Data Objective Data Vital Signs: Vital Signs Temp Pulse Resp BP Pulse Ox O2 Del Method O2 Flow Rate 98.0 F 81 15 127/67 H 97 Room Air 2 09/05/24 06:00 09/05/24 07:56 09/05/24 06:00 09/05/24 07:56 09/05/24 06:00 09/05/24 06:00 08/31/24 23:58 Oxygen Flow Rate (L/min) 2 Oxygen Delivery Method Room Air Weight: 116 lb 6.465 oz Body Mass Index (BMI) 21.2 Intake & Output: Intake and Output for Last 24 Hours 09/03/24 09/04/24 09/05/24 23:59 23:59 23:59 Intake Total 1360 / 1360 1320 / 1320 740 / 740 Output Total 2100 / 2100 1400 / 1400 900 / 900 Balance -740 / -740 -80 / -80 -160 / -160 Lab / Micro Data 09/06/24 06:32 09/06/24 06:32 Micro: Microbiology 08/27/24 09:05 Stool Stool Occult Blood (ALONSO) - Final Occult Blood Positive Physical Exam Const alert and no apparent distress Constitutional Narrative: Appropriate General Appearance: cooperative Resp normal respiratory effort, normal air movement and clear to auscultation bilaterally Cardio no rub and no gallops Cardio Narrative: Irregular irregular rhythm with controlled ventricular response. She has either a bruit or a MM at the LVOT. Known paroxysmal atrial fibrillation. GI normal to inspection, nondistended, normoactive bowel sounds, soft to palpation and non-tender GI Narrative: No guarding with palpation. 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 Continue therapy 2. Check an H&H and BMP in the a.m. 3. No changes to the drug regimen today. Charges/Coding Visit Charges Inpatient E&M: 35037 Subs Hosp L1
[2024-09-05 10:33] VITALS: BMI 21.2
[2024-09-05 18:00] VITALS: BP 116/56; PULSE 62; RESP 16; TEMP 36.9; O2SAT 97
[2024-09-05] MEDS: MELATONIN 3 MG TABLET PO (21:01)
[2024-09-05 21:02] VITALS: BP 104/56; PULSE 62
[2024-09-05] MEDS: Atorvastatin Calcium 40 MG Tablet PO (21:02)
[2024-09-06 06:00] VITALS: BP 126/58; PULSE 61; RESP 14; TEMP 37; O2SAT 95
[2024-09-06 06:52] LABS: Hematocrit 34.9 % (37-47); Hemoglobin 11.3 g/dL (12.0-15.0)
[2024-09-06 07:18] LABS: Anion Gap 9 (5-15); BUN 18 mg/dL (4-19); Calcium,Total 9.1 mg/dL (7.6-11.0); Chloride 104 mmol/L (98-108); Creatinine, Serum 0.89 mg/dL (0.70-1.20); EST Glomerular Filtration Rate 63 (>60); Estimated Creatinine Clearance 35.89 ml/min (50-250); Glucose 95 mg/dL (70-99); Potassium 4.3 mmol/L (3.3-5.1); Sodium Level 141 mmol/L (133-145)
[2024-09-06 07:51] VITALS: BP 123/47; PULSE 64
[2024-09-06] MEDS: Metoprolol Tartrate 25 MG Tablet PO ×2 (07:51→22:02)
[2024-09-06] MEDS: Cholecalciferol (VIT D3) 25 MCG TABLET (1,000 UNITS) PO (07:51)
[2024-09-06] MEDS: APIXABAN 2.5 MG TABLET (WCH) PO ×2 (07:52→22:02)
[2024-09-06] MEDS: Multivitamins,Therapeutic Tablet 1 TABLET PO (07:52)
[2024-09-06] MEDS: Lisinopril 10 MG Tablet PO ×2 (07:53→22:03)
[2024-09-06 12:25] VITALS: BMI 21.2
[2024-09-06] MEDS: Pantoprazole Sodium 40 MG Tablet PO (15:22)
[2024-09-06 16:59] VITALS: BP 134/55; PULSE 80; RESP 16; TEMP 36.2; O2SAT 94
[2024-09-06 20:43] VITALS: BMI 21.2
[2024-09-06 22:00] VITALS: BP 109/52; PULSE 66; RESP 16
[2024-09-06 22:02] VITALS: PULSE 66
[2024-09-06] MEDS: MELATONIN 3 MG TABLET PO (22:02)
[2024-09-06] MEDS: Atorvastatin Calcium 40 MG Tablet PO (22:03)
[2024-09-07 00:22] VITALS: O2SAT 98
[2024-09-07 06:00] VITALS: BP 128/78; PULSE 62; RESP 14; TEMP 37.2; O2SAT 98
[2024-09-07 07:56] VITALS: BP 128/78; PULSE 62
[2024-09-07] MEDS: Metoprolol Tartrate 25 MG Tablet PO ×2 (07:56→21:00)
[2024-09-07] MEDS: Lisinopril 10 MG Tablet PO ×2 (07:57→21:01)
[2024-09-07] MEDS: Cholecalciferol (VIT D3) 25 MCG TABLET (1,000 UNITS) PO (07:58)
[2024-09-07] MEDS: Multivitamins,Therapeutic Tablet 1 TABLET PO (07:58)
[2024-09-07] MEDS: Pantoprazole Sodium 40 MG Tablet PO (07:58)
[2024-09-07] MEDS: APIXABAN 2.5 MG TABLET (WCH) PO ×2 (07:58→21:00)
[2024-09-07 14:34] VITALS: BMI 21.2
--- NOTE | 2024-09-07 16:20 | PCM.PROGNOTE ---
Subjective Subjective Afebrile VSS -is within goal. Heart rate is within normal limits. Denies lightheadedness. Maintaining appropriate oxygen saturation on RA Oral intake - FOOD good FLUIDS good Discussed with nursing - no problems that need addressed. Sleeping well at night. Having regular bowel movements. Pleasant and cooperative. Reviewed the THERAPY notes Medication list reviewed. Kathryn denies lightheadedness, vertigo, CP, SOB at rest, SOB with exertion, cough, nausea, vomiting, abd pain, diarrhea, constipation, dysuria, calf pain and ankle swelling. Objective Data Objective Data Vital Signs: Vital Signs Temp Pulse Resp BP Pulse Ox O2 Del Method O2 Flow Rate 98.9 F 62 14 128/78 H 98 Room Air 2 09/07/24 06:00 09/07/24 07:56 09/07/24 06:00 09/07/24 07:56 09/07/24 06:00 09/07/24 06:00 08/31/24 23:58 Oxygen Flow Rate (L/min) 2 Oxygen Delivery Method Room Air Weight: 116 lb 6.465 oz Body Mass Index (BMI) 21.2 Intake & Output: Intake and Output for Last 24 Hours 09/05/24 09/06/24 09/07/24 23:59 23:59 23:59 Intake Total 1820 / 1820 2040 / 2040 1030 / 1030 Output Total 1950 / 1950 1425 / 1425 1600 / 1600 Balance -130 / -130 615 / 615 -570 / -570 Lab / Micro Data 09/06/24 06:32 09/06/24 06:32 Micro: Microbiology 08/27/24 09:05 Stool Stool Occult Blood (ALONSO) - Final Occult Blood Positive Physical Exam Const alert and no apparent distress Constitutional Narrative: Appropriate General Appearance: cooperative Resp normal respiratory effort, normal air movement and clear to auscultation bilaterally Cardio no rub and no gallops Cardio Narrative: Irregular irregular rhythm with controlled ventricular response. She has either a bruit or a MM at the LVOT. Known paroxysmal atrial fibrillation. GI normal to inspection, nondistended, normoactive bowel sounds, soft to palpation and non-tender GI Narrative: No guarding with palpation. 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 Continue therapy 2. I believe the drop in hemoglobin is more likely than not secondary to better hydration rather than GI bleeding although she did have heme positive stool.. She is on Protonix 40 mg daily. Not uncommon to have heme positive stools with chronic anticoagulation. She is not on an antiplatelet agent because she is on apixaban. 3. would need 24/7 supervision if she were to go home. SW aware. Will discuss with family. Charges/Coding Visit Charges Inpatient E&M: 87845 Subs Hosp L1
[2024-09-07 17:28] VITALS: BP 140/76; PULSE 84; RESP 17; TEMP 37; O2SAT 90
[2024-09-07 20:55] VITALS: BP 126/60; PULSE 62; O2SAT 95
[2024-09-07 21:00] VITALS: BP 126/60; PULSE 62
[2024-09-07] MEDS: Atorvastatin Calcium 40 MG Tablet PO (21:00)
[2024-09-07] MEDS: MELATONIN 3 MG TABLET PO (21:01)
[2024-09-08 04:29] VITALS: BMI 21.2
[2024-09-08 05:38] VITALS: BP 159/88; PULSE 64; RESP 18; TEMP 36.9; O2SAT 95
[2024-09-08] MEDS: Multivitamins,Therapeutic Tablet 1 TABLET PO (08:58)
[2024-09-08 08:59] VITALS: PULSE 64
[2024-09-08] MEDS: APIXABAN 2.5 MG TABLET (WCH) PO ×2 (08:59→20:32)
[2024-09-08] MEDS: Metoprolol Tartrate 25 MG Tablet PO ×2 (08:59→20:32)
[2024-09-08] MEDS: Pantoprazole Sodium 40 MG Tablet PO (08:59)
[2024-09-08] MEDS: Cholecalciferol (VIT D3) 25 MCG TABLET (1,000 UNITS) PO (08:59)
[2024-09-08] MEDS: Lisinopril 10 MG Tablet PO (08:59)
[2024-09-08 11:30] VITALS: BP 148/78
--- NOTE | 2024-09-08 14:30 | CASEMGMT ---
Social Work- JEREMIAH spoke with Aditi, pt dtr, regarding discharge planning. JEREMIAH introduced self and role. Aditi was upset at the idea that pt precert could be denied. SW offered support and provided education and information regarding therapy and pt progress. Aditi reports that pt does not have available funds and would be unable to private pay if precert is denied. Aditi requests [facility] and a visiting waylon/volunteer if pt must return home. Aditi would like an update as soon as possible when a decision is rendered on insurance coverage; JEREMIAH agreeable to provide. TRENTON Farah
[2024-09-08 15:07] VITALS: BMI 21.2
[2024-09-08 18:00] VITALS: BP 141/55; PULSE 60; RESP 17; TEMP 36.6; O2SAT 93
[2024-09-08 20:29] VITALS: BP 107/57; PULSE 63
[2024-09-08 20:32] VITALS: PULSE 63
[2024-09-08] MEDS: MELATONIN 3 MG TABLET PO (20:32)
[2024-09-08] MEDS: Atorvastatin Calcium 40 MG Tablet PO (20:32)
[2024-09-09 01:16] VITALS: BMI 21.2
[2024-09-09 06:00] VITALS: BP 126/57; PULSE 60; RESP 16; TEMP 36.5; O2SAT 95
[2024-09-09] MEDS: Multivitamins,Therapeutic Tablet 1 TABLET PO (08:45)
[2024-09-09] MEDS: APIXABAN 2.5 MG TABLET (WCH) PO ×2 (09:44→22:15)
[2024-09-09] MEDS: Lisinopril 10 MG Tablet PO ×2 (10:06→22:15)
[2024-09-09] MEDS: Pantoprazole Sodium 40 MG Tablet PO (10:06)
[2024-09-09] MEDS: Cholecalciferol (VIT D3) 25 MCG TABLET (1,000 UNITS) PO (10:06)
[2024-09-09 10:12] VITALS: BP 122/60; PULSE 82
[2024-09-09] MEDS: Metoprolol Tartrate 25 MG Tablet PO ×2 (10:12→22:15)
--- NOTE | 2024-09-09 12:50 | CASEMGMT ---
Social Work IDT met with patient and son at bedside, and dtr via conference call for Team meeting. Discussed patient's progress in PT/OT/ST/SN. Educated to [facility] insurance with NRD 09/09 and continued stay is not guaranteed with each review. IDT reiterated that pt requires 24/7 care, is impulsive and confused overnight. SW explained precert is likely to be denied as pt may not meet skilled criteria for a SNF. Educated to [place], but an OOP cost, which would be more cost effective than hiring 24/7 caregivers in the home. Dtr stated pt does not have funds available and inquired about low-income assistance. SW offered to review finances with family to determine Medicaid eligibility. Dtr agreed to provide after the meeting. - SW spoke with dtr after the meeting and discussed pt's finances. Pt is over assets and income for Medicaid. Discussed proper spend down of life insurance and savings. Discussed pt possibly needing QIT for SNF placement after resources are spent. Answered family's additional questions and discussed options further. Son inquired about timeframe for DC. SW reiterated NRD is today and insurance does not have to provide any advanced notice, thus pt could need to be DC'd tomorrow. SW explained pt can pay OOP for a short stay at a SNF until home is conduce for pt. All interested in that option. explained 30 days of payment would still be required, but funds can be reimbursed for days not used. Son stated he may know of someone who can be hired for evenings to care for pt. Dtr inquired about necessity for care overnight. SW explained pt is moer of a fall risk during the night time, as she is more confused, impulsive, and has toileting needs, thus overnight assistance is needed. SW provided son with the list of private duty agencies to contact and coordinate. SW offered to assist with further questions and for family to notify this worker of DC plans. Dtr expressed appreciation for the support, kindness, and explanation from this worker during this time. Sharda Lopes MSW [employer] CASER
--- NOTE | 2024-09-09 14:15 | PCM.PROGNOTE ---
Subjective Subjective Kathryn was seen on team rounds today. Her son Art was present in the room and her daughter Aditi participated by phone. All their questions were answered to their satisfaction. Afebrile VSS -blood pressure is at goal. Heart rate is within normal limits. Maintaining appropriate oxygen saturation on RA Oral intake - FOOD good FLUIDS good Discussed with nursing - no problems that need addressed. sleeping well at night. Cooperative. Impulsive at night and sometimes tries to get out of bed. Not incontinent of urine or stool. Reviewed the THERAPY notes Medication list reviewed. Cognitive function is biggest issue. Aditi tells us that she was having memory issues/cognitive changes even prior to the CVA. Has never been evaluated by neurology for dementia. Denies CP, SOB, abd pain, calf pain and dysuria. Objective Data Objective Data Vital Signs: Vital Signs Temp Pulse Resp BP Pulse Ox O2 Del Method O2 Flow Rate 97.7 F L 82 16 122/60 H 95 Room Air 2 09/09/24 06:00 09/09/24 10:12 09/09/24 06:00 09/09/24 10:12 09/09/24 06:00 09/09/24 06:00 08/31/24 23:58 Oxygen Flow Rate (L/min) 2 Oxygen Delivery Method Room Air Weight: 116 lb 6.465 oz Body Mass Index (BMI) 21.2 Intake & Output: Intake and Output for Last 24 Hours 09/07/24 09/08/24 09/09/24 23:59 23:59 23:59 Intake Total 1330 / 1330 1190 / 1190 840 / 840 Output Total 1600 / 1800 1200 / 1200 900 / 900 Balance -270 / -470 -10 / -10 -60 / -60 Lab / Micro Data 09/06/24 06:32 09/06/24 06:32 Micro: Microbiology 08/27/24 09:05 Stool Stool Occult Blood (ALONSO) - Final Occult Blood Positive Physical Exam Const alert and no apparent distress Constitutional Narrative: Appropriate General Appearance: cooperative Resp normal respiratory effort, normal air movement and clear to auscultation bilaterally Cardio no rub and no gallops Cardio Narrative: Irregular irregular rhythm with controlled ventricular response. She has either a bruit or a MM at the LVOT. Known paroxysmal atrial fibrillation. GI normal to inspection, nondistended, normoactive bowel sounds, soft to palpation and non-tender GI Narrative: No guarding with palpation. Extremity no calf tenderness and no pedal edema Neuro Neuro Narrative: very minimal facial droop now. Still with drift with the RUE but, strength is improved from admission. Also with some weakness in the RLE when compared to the left......no drift on exam. No visual field cuts. No aphasia today but, has trouble following commands. Some nonsensical responses to questions. I asked her how her breathing was today and she said, I had diarrhea today. She would not be safe alone and would need 24/7 supervision if she would be discharged at this time. 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 Aditi told me today that she reviewed her last colonoscopy report and Kathryn has known internal and external hemorrhoids. PLAN: Plan 1. Continue therapy 2. No change to the drug regimen today 3. SW discussed options for DC.......assisted living, SNF (doubt insurance will cover this since she is doing so well with ambulation and the main problem at this time is cognition), EC, 24/7 care at home. 4. REcheck a HH and BMP on Friday Charges/Coding Visit Charges Inpatient E&M: 47451 Subs Hosp L2
[2024-09-09 16:08] VITALS: BMI 21.2
[2024-09-09 17:45] VITALS: BP 133/83; PULSE 78; RESP 16; TEMP 37.2; O2SAT 99
[2024-09-09 20:29] VITALS: BMI 21.2
[2024-09-09 21:45] VITALS: BP 113/62; PULSE 76; RESP 16; TEMP 37.1; O2SAT 98
[2024-09-09 22:00] VITALS: PULSE 76; RESP 16; O2SAT 96
[2024-09-09 22:15] VITALS: PULSE 76
[2024-09-09] MEDS: Senna/Docusate Sodium 1 Tablet 2 TABLET PO (22:15)
[2024-09-09] MEDS: MELATONIN 3 MG TABLET PO (22:15)
[2024-09-09] MEDS: Atorvastatin Calcium 40 MG Tablet PO (22:16)
[2024-09-10 05:38] VITALS: BMI 20.9
[2024-09-10 06:00] VITALS: BP 124/73; PULSE 80; RESP 15; TEMP 36.7; O2SAT 95
--- NOTE | 2024-09-10 07:23 | NURSING ---
03:00- PT FAILED TO USE CALL LIGHT. PT SET OFF ALARMS AND FOUND AT EDGE OF BED IN NEED OF GETTING TO THE BATHROOM. PT STATED THAT SHE DIDN'T REMEMBER THAT SHE NEEDED TO USE THE CALL LIGHT. PT REMINDED OF SAFETY MEASURES IN PLACE.
[2024-09-10] MEDS: Multivitamins,Therapeutic Tablet 1 TABLET PO (07:57)
[2024-09-10] MEDS: Pantoprazole Sodium 40 MG Tablet PO (07:57)
[2024-09-10] MEDS: APIXABAN 2.5 MG TABLET (WCH) PO ×2 (07:57→21:42)
[2024-09-10] MEDS: Cholecalciferol (VIT D3) 25 MCG TABLET (1,000 UNITS) PO (07:57)
[2024-09-10] MEDS: Lisinopril 10 MG Tablet PO ×2 (07:57→21:42)
[2024-09-10 07:58] VITALS: BP 137/80; PULSE 72
[2024-09-10] MEDS: Metoprolol Tartrate 25 MG Tablet PO ×2 (07:58→21:42)
--- NOTE | 2024-09-10 08:33 | CASEMGMT ---
Social Work SW received update from [employer] insurance reviewer stating pt would be denied skilled precert, if requested. Though, did approve additional RU days with NRD 09/15, to allow time for DC planning. SW updated [facility] that pt cannot afford private pay for LTC, but may need a week or two prior to homegoing. JEREMIAH canceled referral with [facility]. - SW phoned dtr to notify of above information. Dtr appreciative of update and will work with pt and family on plan for DC. Sharda Lopes RADIO STATION AUDIO ENGINEER COOK 3 PASTRY
[2024-09-10 09:42] VITALS: BMI 20.9
[2024-09-10 18:07] VITALS: BP 100/58; PULSE 72; RESP 16; TEMP 36.6
[2024-09-10 21:41] VITALS: BP 100/56; PULSE 82; RESP 20; TEMP 36.4; O2SAT 96
[2024-09-10 21:42] VITALS: PULSE 82
[2024-09-10] MEDS: MELATONIN 3 MG TABLET PO (21:42)
[2024-09-10] MEDS: Atorvastatin Calcium 40 MG Tablet PO (21:42)
[2024-09-10 22:00] VITALS: RESP 18; O2SAT 96
--- NOTE | 2024-09-10 22:09 | NURSING ---
Pt had some confusion this hs not knowing what she needed to do next, when staff was in room to assist with toileting needs. Pt did not use call light for toileting needs. When staff returned to admin hs pills, pt refused to take her hs pills. RN explained again what each med was for, yet pt was reluctant to take hs meds. Pt did take meds after hs ADLs. Pt then closed her eyes, stating she was tired.
[2024-09-10 23:14] VITALS: BMI 20.9
[2024-09-11 06:00] VITALS: BP 129/75; PULSE 87; RESP 15; TEMP 36.6; O2SAT 95
[2024-09-11] MEDS: Multivitamins,Therapeutic Tablet 1 TABLET PO (08:04)
[2024-09-11 08:06] VITALS: PULSE 87
[2024-09-11] MEDS: Cholecalciferol (VIT D3) 25 MCG TABLET (1,000 UNITS) PO (08:06)
[2024-09-11] MEDS: Lisinopril 10 MG Tablet PO ×2 (08:06→21:34)
[2024-09-11] MEDS: Metoprolol Tartrate 25 MG Tablet PO ×2 (08:06→21:33)
[2024-09-11] MEDS: APIXABAN 2.5 MG TABLET (WCH) PO ×2 (08:07→21:31)
[2024-09-11] MEDS: Pantoprazole Sodium 40 MG Tablet PO (08:07)
[2024-09-11 09:35] VITALS: BMI 20.9
[2024-09-11 18:00] VITALS: BP 113/65; PULSE 88; RESP 16; TEMP 36.4; O2SAT 96
[2024-09-11 21:30] VITALS: O2SAT 97
[2024-09-11] MEDS: Atorvastatin Calcium 40 MG Tablet PO (21:31)
[2024-09-11] MEDS: MELATONIN 3 MG TABLET PO (21:31)
[2024-09-11 21:33] VITALS: BP 118/64; PULSE 90
[2024-09-11 23:53] VITALS: BMI 20.9
[2024-09-12 05:39] VITALS: BP 124/74; PULSE 80; RESP 15; TEMP 36.8; O2SAT 95
[2024-09-12 07:37] VITALS: PULSE 80
[2024-09-12] MEDS: Metoprolol Tartrate 25 MG Tablet PO ×2 (07:37→20:10)
[2024-09-12] MEDS: Cholecalciferol (VIT D3) 25 MCG TABLET (1,000 UNITS) PO (07:37)
[2024-09-12] MEDS: Multivitamins,Therapeutic Tablet 1 TABLET PO (07:37)
[2024-09-12] MEDS: Pantoprazole Sodium 40 MG Tablet PO (07:37)
[2024-09-12] MEDS: APIXABAN 2.5 MG TABLET (WCH) PO ×2 (07:37→20:10)
[2024-09-12] MEDS: Lisinopril 10 MG Tablet PO ×2 (07:37→20:10)
[2024-09-12 10:15] VITALS: BMI 20.9
--- NOTE | 2024-09-12 12:18 | NURSING ---
pt's daughter took pt to bathroom and was transferring her back to the chair when this nurse walked into the room. This nurse explained that no one is allowed to transfer the pt without therapies permission. The daughter stated she transferred her mother last weekend in the hallway without issues. This nurse checked the chart and was unable to find any documentation of therapy approving daughter to transfer the pt. Explained to the daughter that until this could be verified with therapy, she would not be allowed to transfer the pt. Daughter agreed to this.
[2024-09-12 18:00] VITALS: BP 119/78; PULSE 78; RESP 15; TEMP 37.1; O2SAT 97
[2024-09-12 20:10] VITALS: BP 119/78; PULSE 78
[2024-09-12] MEDS: Atorvastatin Calcium 40 MG Tablet PO (20:10)
[2024-09-12] MEDS: MELATONIN 3 MG TABLET PO (20:11)
[2024-09-13] VITALS (8 sets, daily range): BP systolic 109–128; BP diastolic 47–61; PULSE 62–67; RESP 16–18; TEMP 36.6; O2SAT 95–98; BMI 20.9
[2024-09-13 05:54] LABS: Hematocrit 35.8 % (37-47); Hemoglobin 11.4 g/dL (12.0-15.0)
[2024-09-13 06:46] LABS: Anion Gap 9 (5-15); BUN 23 mg/dL (4-19); BUN/Creat Ratio 20.6 RATIO (10-20); Calcium,Total 9.4 mg/dL (7.6-11.0); Carbon Dioxide 26.2 mmol/L (21.0-32.0); Chloride 105 mmol/L (98-108); Creatinine, Serum 1.09 mg/dL (0.70-1.20); EST Glomerular Filtration Rate 49 (>60); Glucose 98 mg/dL (70-99); Potassium 4.7 mmol/L (3.3-5.1); Sodium Level 140 mmol/L (133-145)
[2024-09-13] MEDS: Multivitamins,Therapeutic Tablet 1 TABLET PO (07:31)
[2024-09-13] MEDS: Cholecalciferol (VIT D3) 25 MCG TABLET (1,000 UNITS) PO (07:31)
[2024-09-13] MEDS: Pantoprazole Sodium 40 MG Tablet PO (07:31)
[2024-09-13] MEDS: APIXABAN 2.5 MG TABLET (WCH) PO ×2 (07:31→22:45)
[2024-09-13] MEDS: Lisinopril 10 MG Tablet PO ×2 (07:32→22:49)
[2024-09-13] MEDS: Metoprolol Tartrate 25 MG Tablet PO ×2 (07:33→22:35)
--- NOTE | 2024-09-13 11:58 | PN_ITS ---
Subjective Subjective Afebrile VSS -blood pressure is at goal and stable. Heart rate is within normal limits. Maintaining appropriate oxygen saturation on RA Oral intake - FOOD good FLUIDS good Discussed with nursing -incontinent of urine twice recently which is unusual. Nursing tells me her urine is malodorous. She is afebrile. She is continent of stool. Reviewed the THERAPY notes Medication list reviewed. All lab from this morning was personally reviewed. Hemoglobin is stable at 11.4. Sodium is 140 and the potassium is 4.7. Serum bicarb is within normal limits. The BUN is 23 with a creatinine of 1.09 which is up from 0.89 on 09/06/2024 despite excellent fluid intake. Calcium is within normal limits. Kathryn denies dysuria, urgency, flank pain, nausea (ate 100% of lunch), night sweats and chills. She also denies VICTORIA, lightheadedness, CP and palpitations. Objective Data Objective Data Vital Signs: Vital Signs Temp Pulse Resp BP Pulse Ox O2 Del Method O2 Flow Rate 97.9 F 65 16 128/59 H 95 Room Air 2 09/13/24 03:01 09/13/24 08:02 09/13/24 08:02 09/13/24 08:02 09/13/24 08:02 09/13/24 08:23 08/31/24 23:58 Oxygen Flow Rate (L/min) 2 Oxygen Delivery Method Room Air Weight: 114 lb 6.719 oz Body Mass Index (BMI) 20.9 Intake & Output: Intake and Output for Last 24 Hours 09/11/24 09/12/24 09/13/24 23:59 23:59 23:59 Intake Total 1890 / 1890 2090 / 2090 1460 / 1460 Output Total 2175 / 2175 1425 / 1425 600 / 600 Balance -285 / -285 665 / 665 860 / 860 Lab / Micro Data 09/13/24 05:15 09/13/24 05:15 Labs: Laboratory Results - last 24 hr 09/13/24 05:15: Hgb 11.4 L, Hct 35.8 L, Sodium 140, Potassium 4.7, Chloride 105, Carbon Dioxide 26.2, Anion Gap 9, BUN 23 H, Creatinine 1.09, Estim Creat Clear Calc 29.30 L, Est GFR (MDRD) Non-Af 49 L, BUN/Creatinine Ratio 20.6 H, Glucose 98, Calcium 9.4 Micro: Microbiology 08/27/24 09:05 Stool Stool Occult Blood (ALONSO) - Final Occult Blood Positive Physical Exam Const Constitutional Narrative: Sleeping in her recliner when I entered the room. Easily arousable. Calm. Engaged. Making good eye contact. Tends to speak fast and then is a little slurred. General Appearance: cooperative HEENT moist oral mucous membranes Resp normal respiratory effort and clear to auscultation bilaterally Effort and Inspection: Negative for tachypneic Cardio regular rate, regular rhythm and no gallops Cardio Narrative: No ectopy GI normal to inspection, nondistended, normoactive bowel sounds, soft to palpation and non-tender GI Narrative: No guarding with palpation.......also no guarding in the suprapubic area. Extremity no calf tenderness General Extremity: Negative for edema Skin Rashes: no rashes Psych cooperative Psych Narrative: Engaged with me and is making good eye contact. 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 (13) Malodorous urine: PLAN: Plan 1. Continue therapy 2. Straight cath and obtain a UA and if abnormal get a urine culture. 3. Since the creatinine is elevated despite good fluid intake we will check a couple postvoid residuals. Has been incontinent twice recently. Charges/Coding Visit Charges Inpatient E&M: 03967 [facility] Hosp L1
[2024-09-13 13:59] LABS: Mucous, Urine 0 SEEN /hpf (<or=2+); Squamous Epithelial Cells - UA 0 SEEN /hpf (5-10)
[2024-09-13 14:26] LABS: Color, Urine Yellow (Yellow); Glucose, Dipstick Normal (Normal); Ketone-Dipstick Negative (Negative); Leukocyte Esterase-Dipstick 500 /ul (Negative); Nitrite-Dipstick Positive (Negative); Occult Blood-Urine 50 /ul (Negative); Protein-Dipstick 15 mg/dl (Negative); Specific Gravity, Urine 1.015 (1.002-1.030); Urine Bilirubin Dipstick Negative (Negative); Urine Clarity Sl. Cloudy (Clear); Urine Urobilinogen Normal (Normal)
[2024-09-13 15:52] LABS: Bacteria 2+ /hpf (None Seen); Red Blood Cells-Urine 0-5 SEEN /hpf (0-5); White Blood Cells 25-50 SEEN /hpf (0-5)
[2024-09-13] MEDS: Cephalexin 500 MG Capsule PO (22:45)
[2024-09-13] MEDS: Atorvastatin Calcium 40 MG Tablet PO (22:45)
[2024-09-13] MEDS: MELATONIN 3 MG TABLET PO (22:48)
--- NOTE | 2024-09-14 01:32 | NURSING ---
PVR #2- Void 250mL and BS for 0mL.
[2024-09-14 01:55] VITALS: BP 107/52; PULSE 64
[2024-09-14] MEDS: Cephalexin 500 MG Capsule PO ×3 (05:10→22:06)
[2024-09-14 06:00] VITALS: BP 120/51; PULSE 59; RESP 14; TEMP 36.9; O2SAT 97
[2024-09-14 07:59] VITALS: PULSE 59
[2024-09-14] MEDS: Metoprolol Tartrate 25 MG Tablet PO ×2 (07:59→22:06)
[2024-09-14] MEDS: Multivitamins,Therapeutic Tablet 1 TABLET PO (07:59)
[2024-09-14] MEDS: APIXABAN 2.5 MG TABLET (WCH) PO ×2 (07:59→22:05)
[2024-09-14] MEDS: Pantoprazole Sodium 40 MG Tablet PO (07:59)
[2024-09-14] MEDS: Lisinopril 10 MG Tablet PO ×2 (07:59→22:08)
[2024-09-14] MEDS: Cholecalciferol (VIT D3) 25 MCG TABLET (1,000 UNITS) PO (07:59)
[2024-09-14 10:21] VITALS: BMI 20.9
--- NOTE | 2024-09-14 10:58 | PCM.PROGNOTE ---
Subjective Subjective Day #2 Keflex for acute cystitis Afebrile Blood pressure is at goal. Heart rate is ranged from 59-65 over the past 24 hours. Good appetite Sleeping well at night UA yesterday was positive for nitrite and had 0-5 RBCs and 25-50 WBCs per high-power field with 2+ bacteria. Urine culture is pending. Preliminary is a gram-negative oliva. Urine culture on 08/18/2024 grew E. coli which was intermediately sensitive to ciprofloxacin but sensitive to everything else that was tested. She was diagnosed with this while on the acute side of the hospital and she was treated with 5 days of Keflex. D/W PT/OT. More confused the past 2 days. Speech is more slurred and she is more sleepy. OT tells me that the urine has nae odor today. Continues to be incontinent of urine which is new ........the last time she was incontinent was 08/31/24 unitl just the past 2 days. Continues to deny dysuria, flank pain, N/V/suprapubic pain. Objective Data Objective Data Vital Signs: Vital Signs Temp Pulse Resp BP Pulse Ox O2 Del Method O2 Flow Rate 98.5 F 59 L 14 120/51 L 97 Room Air 2 09/14/24 06:00 09/14/24 07:59 09/14/24 06:00 09/14/24 06:00 09/14/24 06:00 09/14/24 10:00 08/31/24 23:58 Oxygen Flow Rate (L/min) 2 Oxygen Delivery Method Room Air Weight: 114 lb 6.719 oz Body Mass Index (BMI) 20.9 Intake & Output: Intake and Output for Last 24 Hours 09/12/24 09/13/24 09/14/24 23:59 23:59 23:59 Intake Total 2090 / 2090 2610 / 2610 540 / 540 Output Total 1425 / 1425 1550 / 1550 550 / 550 Balance 665 / 665 1060 / 1060 -10 / -10 Lab / Micro Data 09/13/24 05:15 09/13/24 05:15 Labs: Laboratory Results - last 24 hr 09/13/24 13:50: Urine Color Yellow, Urine Clarity Sl. Cloudy, Urine pH 6.0, Ur Specific [place] 1.015, Urine Protein 15 H, Urine Glucose (UA) Normal, Urine Ketones Negative, Urine Occult Blood 50 H, Urine Nitrite Positive H, Urine Bilirubin Negative, Urine Urobilinogen Normal, Ur Leukocyte Esterase 500 H, Urine RBC 0-5 SEEN, Urine WBC 25-50 SEEN, Ur Squamous Epith Cells 0 SEEN, Urine Bacteria 2+, Urine Mucus 0 SEEN Micro: Microbiology 09/13/24 13:50 Urine Catheter - Catheter Urine Culture - Preliminary Gram negative oliva 08/27/24 09:05 Stool Stool Occult Blood (ALONSO) - Final Occult Blood Positive Physical Exam Const Constitutional Narrative: speech is more slurred and she is mumbling. More confused. No new focal neurologic deficits. Denies cephalgia. General Appearance: cooperative HEENT moist oral mucous membranes Resp normal respiratory effort and clear to auscultation bilaterally Effort and Inspection: Negative for tachypneic Cardio regular rate, regular rhythm and no gallops Cardio Narrative: No ectopy GI normal to inspection, nondistended, normoactive bowel sounds, soft to palpation and non-tender GI Narrative: No guarding with palpation.......also no guarding in the suprapubic area. 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 Continue therapy 2. Keflex 500 mg 3 times daily x 7 days. she denies dysuria, flank pain, N/V, suprapubic pain and she is AF but, she is now incontinent of urine again and she has increased confusion and slurring of speech. I consider this symptomatic bacteriuria. If no improvement in the next 24H will consider a CT brain. She has not had any falls and she is not c/o VICTORIA. No new focal neurologic deficits. Charges/Coding Visit Charges Inpatient E&M: 00712 Subs Hosp L1
[2024-09-14 17:28] VITALS: BP 141/60; PULSE 59; RESP 16; TEMP 36.6; O2SAT 97
[2024-09-14 20:50] VITALS: BP 115/53; PULSE 56; RESP 16; TEMP 36.4
[2024-09-14 22:06] VITALS: BP 115/53; PULSE 56
[2024-09-14] MEDS: Atorvastatin Calcium 40 MG Tablet PO (22:06)
[2024-09-14] MEDS: MELATONIN 3 MG TABLET PO (22:07)
[2024-09-14] MEDS: Senna/Docusate Sodium 1 Tablet 2 TABLET PO (22:08)
--- NOTE | 2024-09-15 01:06 | NURSING ---
Pt set off BA and was found with feet on the floor in need of toileting assistance. Staff assisted with toileting needs and repositioned in bed with call light within reach and bed in lowest position.
[2024-09-15 02:16] VITALS: BMI 20.9
[2024-09-15] MEDS: Cephalexin 500 MG Capsule PO ×3 (05:13→21:00)
[2024-09-15] MEDS: Acetaminophen 325 MG Tablet 650 MG PO (05:30)
[2024-09-15 06:00] VITALS: BP 134/64; PULSE 63; RESP 14; TEMP 36.7; O2SAT 95
[2024-09-15 08:02] VITALS: PULSE 63
[2024-09-15] MEDS: Metoprolol Tartrate 25 MG Tablet PO ×2 (08:02→21:00)
[2024-09-15] MEDS: Cholecalciferol (VIT D3) 25 MCG TABLET (1,000 UNITS) PO (08:02)
[2024-09-15] MEDS: Pantoprazole Sodium 40 MG Tablet PO (08:02)
[2024-09-15] MEDS: Lisinopril 10 MG Tablet PO ×2 (08:02→21:00)
[2024-09-15] MEDS: Multivitamins,Therapeutic Tablet 1 TABLET PO (08:03)
[2024-09-15] MEDS: APIXABAN 2.5 MG TABLET (WCH) PO ×2 (08:03→21:00)
[2024-09-15 12:59] VITALS: BMI 20.9
[2024-09-15 18:00] VITALS: BP 107/52; PULSE 56; RESP 16; TEMP 36.4; O2SAT 96
[2024-09-15 21:00] VITALS: BP 107/52; PULSE 56
[2024-09-15] MEDS: Atorvastatin Calcium 40 MG Tablet PO (21:00)
[2024-09-15] MEDS: MELATONIN 3 MG TABLET PO (21:00)
[2024-09-15 23:00] VITALS: BMI 20.9
[2024-09-16 06:04] VITALS: BP 140/62; PULSE 57; RESP 18; TEMP 36.7; O2SAT 96
[2024-09-16] MEDS: Cephalexin 500 MG Capsule PO ×3 (06:07→20:53)
[2024-09-16 08:05] VITALS: PULSE 57
[2024-09-16] MEDS: Lisinopril 10 MG Tablet PO ×2 (08:05→20:54)
[2024-09-16] MEDS: Multivitamins,Therapeutic Tablet 1 TABLET PO (08:05)
[2024-09-16] MEDS: Cholecalciferol (VIT D3) 25 MCG TABLET (1,000 UNITS) PO (08:05)
[2024-09-16] MEDS: APIXABAN 2.5 MG TABLET (WCH) PO ×2 (08:05→20:53)
[2024-09-16] MEDS: Metoprolol Tartrate 25 MG Tablet PO ×2 (08:05→20:54)
[2024-09-16] MEDS: Pantoprazole Sodium 40 MG Tablet PO (08:06)
--- NOTE | 2024-09-16 10:33 | PCM.PROGNOTE ---
Subjective Subjective Kathryn was seen on team rounds today. Her son Art was present in the room and daughter Aditi participated by phone. Day #4 for E. Coli acute cystitis. Afebrile VSS -blood pressure is within goal. she has mild bradycardia but, she is on a beta coleman. The HR increases with exertion and she denies lightheadedness. Maintaining appropriate oxygen saturation on RA Oral intake - FOOD good FLUIDS good Discussed with nursing - no problems that need addressed Reviewed the THERAPY notes - confusion has improved with treating for UTI and the speech is no longer slurred. Doing better with therapy. Ambulating up to 490' with a FWW. Cognition is improving but, she will still need 24/ supervision at [place]. She needs a lo9t of cuing to complete tasks. Able to follow some 2 step commands now. Medication list reviewed. Kathryn denies lightheadedness, vertigo, CP, SOB at rest, SOB with exertion, cough, nausea, vomiting, abd pain, constipation, dysuria, calf pain and ankle swelling. She continues to have loose stool and has been incontinent of stool. Denies abd pain and she is eating well. Objective Data Objective Data Vital Signs: Vital Signs Temp Pulse Resp BP Pulse Ox O2 Del Method O2 Flow Rate 98.1 F 57 L 18 140/62 H 96 Room Air 2 09/16/24 06:04 09/16/24 08:05 09/16/24 06:04 09/16/24 06:04 09/16/24 06:04 09/16/24 06:04 08/31/24 23:58 Oxygen Flow Rate (L/min) 2 Oxygen Delivery Method Room Air Weight: 114 lb 6.719 oz Body Mass Index (BMI) 20.9 Intake & Output: Intake and Output for Last 24 Hours 09/14/24 09/15/24 09/16/24 23:59 23:59 23:59 Intake Total 2190 / 2190 1410 / 1410 440 / 440 Output Total 1650 / 1650 1400 / 1400 100 / 100 Balance 540 / 540 10 340 / 340 Lab / Micro Data 09/13/24 05:15 09/13/24 05:15 Micro: Microbiology 09/13/24 13:50 Urine Catheter - Catheter Urine Culture - Final Escherichia coli 08/27/24 09:05 Stool Stool Occult Blood (ALONSO) - Final Occult Blood Positive Physical Exam Const Constitutional Narrative: speech is more slurred and she is mumbling. More confused. No new focal neurologic deficits. Denies cephalgia. General Appearance: cooperative HEENT moist oral mucous membranes Resp normal respiratory effort and clear to auscultation bilaterally Effort and Inspection: Negative for tachypneic Cardio regular rate, regular rhythm and no gallops Cardio Narrative: No ectopy GI normal to inspection, nondistended, normoactive bowel sounds, soft to palpation and non-tender GI Narrative: No guarding with palpation.......also no guarding in the suprapubic area. Having loose stool and is sometimes incontinent despite not receiving stool softeners. Extremity no calf tenderness General Extremity: Negative for edema Skin Rashes: no rashes Psych Psych Narrative: Always pleasant and cooperative. for the most part remembers to use the call light. Not restless or fidgety. Makes good eye contact when speaking with me. 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 Continue therapy 2. Check fecal leukocytes 3. Hold Protonix - can cause diarrhea in up to 9% of patients 4. finish a 7 day course of Keflex. 5. Plan DC home on Friday. Family to provide 04/11 supervision. Would like prescriptions faxed to [facility] retail pharmacy. 6. Bidet recommended for home to help maintain good hygiene post BM. 7. CBC and BMP tomorrow Charges/Coding Visit Charges Inpatient E&M: 79395 Subs Hosp L2
[2024-09-16 12:44] VITALS: BMI 20.9
--- NOTE | 2024-09-16 12:45 | CASEMGMT ---
Addendum entered by Sharda Lopes 09/17/24 11:06: [facility] can accept after revisions to the HHC order were made. JEREMIAH updated via email to dtr. Notified dtr that [facility] will contact dtr for SOC, which is typically 2-3 days after the pt's DC pending PCP signing orders. Addendum entered by Sharda Lopes 09/17/24 10:10: SW received HHC selections via [employer]. 1. [facility], 2. [facility], 3. [facility]. JEREMIAH sent referral to [facility] via [employer]. Original Note: Social Work IDT met with patient and son at bedside, then dtr via conference call for Team meeting. Discussed patient's progress in PT/OT/ST/SN. Educated to [facility] insurance, who just notified this worker of LCD 09/18, EDC 09/19. Dtr and son stated they are ready to have pt DC'd on 09/17. IDT agreeable. JEREMIAH inquired about skilled HHC, offered list of agencies, and DME needs. Dtr agreed to HHC and list, prefers it to be emailed. Dtr requesting rollator and 3-in-1 commode, delivered to the room, and agreeable to pay copays for rollator, etc. Dtr can transport on 09/19. - JEREMIAH provided list of skilled HHC agencies within geographical area, INN with insurance, that include quality and resource data via [employer] guide via email. JEREMIAH sent referral to [facility] via [employer]. Plan: DC home 09/19, HHC PT/OT/ST/SN/SW, rollator, 3-in-1 commode Sharda Lopes HOSPICE AIDE CHEMICAL PLANT WORKER
[2024-09-16 17:44] VITALS: BP 120/55; PULSE 55; RESP 16; TEMP 36.4; O2SAT 96
[2024-09-16] MEDS: Atorvastatin Calcium 40 MG Tablet PO (20:53)
[2024-09-16] MEDS: MELATONIN 3 MG TABLET PO (20:53)
[2024-09-16 20:54] VITALS: BP 115/50; PULSE 60
[2024-09-17 05:49] VITALS: BP 129/59; PULSE 54; RESP 15; TEMP 37.1; O2SAT 97; BMI 20.7
[2024-09-17] MEDS: Cephalexin 500 MG Capsule PO ×3 (05:51→23:10)
[2024-09-17 05:52] LABS: Hematocrit 34.5 % (37-47); Hemoglobin 11.1 g/dL (12.0-15.0); Mean Corp Hgb Conc 32.2 g/dL (32-36); Mean Corpuscular Volume 96.4 fL (81-99); Mean Platelet Vol. 9.2 fl (6.2-12.0); Platelet Count 249 K/mm3 (150-450); RBC Distribution Width CV 12.4 % (11.6-14.6); RBC Distribution Width SD 43.9 fl (35.1-43.9); Red Blood Count 3.58 M/mm3 (4.2-5.4); White Blood Count 5.6 K/mm3 (4.4-11.0)
[2024-09-17 06:22] LABS: Anion Gap 9 (5-15); BUN 19 mg/dL (4-19); BUN/Creat Ratio 19.3 RATIO (10-20); Calcium,Total 9.3 mg/dL (7.6-11.0); Carbon Dioxide 25.4 mmol/L (21.0-32.0); Chloride 105 mmol/L (98-108); Creatinine, Serum 0.98 mg/dL (0.70-1.20); EST Glomerular Filtration Rate 56 (>60); Estimated Creatinine Clearance 32.59 ml/min (50-250); Glucose 101 mg/dL (70-99); Potassium 4.3 mmol/L (3.3-5.1); Sodium Level 140 mmol/L (133-145)
--- NOTE | 2024-09-17 08:04 | PCM.DC ---
Discharge Instructions DC O2, CPAP, BIPAP needs Home O2 Discharge instructions: No Dressing / Incision Discharge Activity: May Not Drive, May Shower and Use Walker Weight Bearing Status: Full weight bearing Dressing / Incision Call your doctor if you observe: Fever of 101 or Higher, Inability to urinate, Inability to have a bowel movement, Shortness of breath, Dizziness, Fainting spells, Swelling in the ankles, Chest pain, Increased palpitations (irregular heartbeat), Calf discomfort, Uncontrolled pain and - (STROKE symptoms: facial droop, slurred speech, inability to get words out, weakness on 1 side of the body and not the other, numbness on 1 side of the body and not the other, inability to maintain your balance sitting or standing, vertigo. ) Follow Up Care When: Appts have been scheduled for you with neurology, cardiology and with your PCP. They are listed later in this document. Test Results: Test results from this visit will be discussed in further detail at your follow-up appointment, if applicable. Pending Tests Upon Discharge: none Discharge Plan Admission Admit Date/Time: 08/22/24 13:55 Primary Reason for Your Visit: POST STROKE DEBILITY Attending Provider: Kathryn Dorado Primary Care Provider: Tasha Deutsch Instructions Patient Instructions: Urinary Tract Infections in Women, Discharge Instructions for Stroke, AFib Preventing Stroke, ED Cystitis Female Adult Additional Instructions / Restrictions: 1. Your BP is well controlled at the time of Discharge from rehab. the goal for BP in a pt of your age with a stroke is to keep the BP under 140/80. Your BP is not too low. Signs that the BP may be too low are dizziness, alex with standing), feeling like you are going to pass out, actually passing out when standing, shortness of breath with exertion, racing heart, sweating when you are standing and sometimes nausea with standing for a prolonged period of time. 2. You are sleeping well at night and you have a good appetite. 3. Your lab 1 day prior to discharge from rehab looks very good. You are a little anemic. Your stool does have some blood in it and this is not unusual when your are taking an anticoagulant (blood thinner). You are on and anticoagulant called Eliquis (also called Apixaban). This is to help prevent additional strokes going forward since you have Atrial fibrillation (also called AFIB). This is a problem with the rhythm of the heart and it causes little clots to form in the heart which can then get squeezed out of the heart and go to the brain causing a stroke. You have been diagnosed with internal and external hemorrhoids in the past and I suspect this is why you have blood in the stool. Many people who are on anticoagulants have blood in the stool intermittently. Chronic blood loss can lead to iron deficiency and worsening anemia. I have placed you on an iron supplement which you will take every other day. Iron supplements can cause constipation and it can make your stool look very dark or black. If you are having a problem with constipation you may want to start Metamucil or Miralax to help keep the stool soft. 4. You have had 2 urinary tract infections while on rehab. Both were caused by a bacteria called E. Coli. This bacteria lives in everyone's colon and it is a frequent cause of urinary tract infection, alex in women. Hygiene after a BM is very important. Make sure to wipe from the front to the back after a BM. Your family is looking into getting a bidet to attach to your toilet and this will be very helpful in maintaining good hygiene. Until you get a bidet it would be a good idea to use baby wipes to clean yourself after a BM. In older people the symptoms of a urinary tract infection (UTI) are different than in younger women. As you age you frequently will not have a fever or chills with infection. You may not have burning with urination and this makes it difficult to diagnose. If you have a change in mental status (more confused), new urinary incontinence, increased frequency of urination or nausea you may have a UTI. If you have any of these symptoms call your PCP for advice. They may want to check your urine. As you age you can also have bacteria in the urine even if you do not have a UTI. If you are totally asymptomatic then you probably would not need an antibiotic. 5. If you are having nose bleeds, coughing up blood, have blood in your urine, are having loose stools that are black or maroon colored then you should call your PCP for advice. Also call for sudden onset of severe headache, alex if you have fallen recently. 6. You have made great progress on rehab. You will need continued therapy after Discharge from rehab. Strokes often affect thought processing and you have had a lot of confusion BUT, you are improving with speech therapy. We do not feel you will be safe alone at the time of discharge from rehab and are recommending that you have 24/7 supervision until the speech therapist feels you are able to manage alone for a short time by yourself. I recommend you sign up for a service to provide you with a device you can activate if you fall or have an emergency that you need help with. The social worker assistant gave your family information about this. 7. It has been a pleasure having you on rehab. You are always so pleasant and ready to work with therapy and we have all enjoyed watching you get better and better. If you or your family have any questions after you leave rehab please do not hesitate to call me. OFFICE: [phone] CELL: [phone] NURSES STATION ON REHAB: [phone] Discharge Orders/Prescriptions Prescriptions: New cephalexin 500 mg Capsule 500 mg PO Q8 Qty: 5 0RF Rx Instructions: You will only need 5 more doses of this antibiotic once you get home and then you can stop. ferrous sulfate [FeroSul] 325 mg (65 mg iron) Tablet 325 mg PO Q48H Qty: 30 0RF lisinopril 10 mg Tablet 10 mg PO BID Qty: 60 0RF metoprolol tartrate 25 mg Tablet 25 mg PO BID Qty: 60 0RF cholecalciferol (vitamin D3) 25 mcg (1,000 unit) Tablet 25 mcg PO DAILY Qty: 30 0RF apixaban 2.5 mg tablet 2.5 mg PO BID Qty: 60 0RF Continued multivitamin [Daily Multi-Vitamin] Tablet 1 tab PO DAILY acetaminophen 325 mg Tablet 650 mg PO Q4H PRN PRN (Reason: Pain 1-10 Or Fever>99.6) Qty: 0 0RF atorvastatin 40 mg Tablet 40 mg PO QHS Qty: 30 0RF Changed melatonin 3 mg Tablet 3 mg PO QHS Qty: 30 0RF Discontinued lisinopril 30 mg tablet 30 mg PO DAILY metoprolol tartrate 50 mg Tablet 25 mg PO BID Qty: 0 0RF Eliquis 5 mg Tablet 2.5 mg PO BID Qty: 0 0RF cephalexin 500 mg Capsule 500 mg PO Q12 Qty: 2 0RF sennosides-docusate sodium [Stimulant Laxative Plus] 8.6-50 mg Tablet 2 tab PO BID Referrals / Follow Up: Tasha Deutsch CNS [Primary Care Provider] - 10/04/24 10:40 am Swapnil Balderrama MD [Med Staff - Active Staff] - 10/12/24 9:30 am Lakshmi Santana NP-C [Med Staff - Adv Practice Prof] - 10/04/24 9:00 am Disposition Disposition (needs filled in before D/C Order can be placed): Home Health Service
[2024-09-17 08:06] VITALS: PULSE 62
[2024-09-17] MEDS: Lisinopril 10 MG Tablet PO ×2 (08:06→23:11)
[2024-09-17] MEDS: APIXABAN 2.5 MG TABLET (WCH) PO ×2 (08:06→23:10)
[2024-09-17] MEDS: Multivitamins,Therapeutic Tablet 1 TABLET PO (08:06)
[2024-09-17] MEDS: Cholecalciferol (VIT D3) 25 MCG TABLET (1,000 UNITS) PO (08:06)
[2024-09-17] MEDS: Metoprolol Tartrate 25 MG Tablet PO ×2 (08:06→23:10)
[2024-09-17] MEDS: Ferrous Sulfate 325 MG Tablet PO (09:46)
[2024-09-17 10:32] VITALS: BMI 20.7
[2024-09-17 18:00] VITALS: BP 131/61; PULSE 60; RESP 16; TEMP 37; O2SAT 97
[2024-09-17 23:10] VITALS: BP 135/65; PULSE 60
[2024-09-17] MEDS: Atorvastatin Calcium 40 MG Tablet PO (23:10)
[2024-09-17] MEDS: MELATONIN 3 MG TABLET PO (23:11)
[2024-09-18] VITALS (7 sets, daily range): BP systolic 107–167; BP diastolic 65–80; PULSE 57–67; RESP 15–18; TEMP 36.8–37.3; O2SAT 94–97; BMI 20.7
[2024-09-18] MEDS: Cephalexin 500 MG Capsule PO ×3 (07:02→20:29)
[2024-09-18] MEDS: Cholecalciferol (VIT D3) 25 MCG TABLET (1,000 UNITS) PO (08:36)
[2024-09-18] MEDS: APIXABAN 2.5 MG TABLET (WCH) PO ×2 (08:36→20:29)
[2024-09-18] MEDS: Multivitamins,Therapeutic Tablet 1 TABLET PO (08:36)
[2024-09-18] MEDS: Lisinopril 10 MG Tablet PO ×2 (08:39→20:30)
[2024-09-18] MEDS: Metoprolol Tartrate 25 MG Tablet PO ×2 (08:39→20:29)
--- NOTE | 2024-09-18 11:47 | DS.PCM_ITS ---
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: Status: Acute Code(s): I63.9 - Cerebral infarction, unspecified; R41.89 - Other symptoms and signs involving cognitive functions and awareness (6) Ataxia due to acute cerebrovascular disease: Status: Acute Code(s): I67.89 - Other cerebrovascular disease; R27.0 - Ataxia, unspecified (7) Dysarthria: Status: Acute Code(s): R47.1 - Dysarthria and anarthria (8) Paroxysmal atrial fibrillation: Status: Chronic Code(s): I48.0 - Paroxysmal atrial fibrillation (9) Chronic anticoagulation: Status: Chronic Code(s): Z79.01 - detention (current) use of anticoagulants (10) HTN (hypertension): Status: Chronic Code(s): I10 - Essential (primary) hypertension Qualifiers: Hypertension type: primary hypertension Qualified Code(s): I10 - Essential (primary) hypertension (11) Dyslipidemia: Status: Chronic Code(s): E78.5 - Hyperlipidemia, unspecified (12) Heme + stool: Status: Acute Code(s): R19.5 - Other fecal abnormalities Plan: Last colonoscopy with internal and external hemorrhoids. (13) Acute cystitis: Status: Resolved Code(s): N30.00 - Acute cystitis without hematuria Qualifiers: Hematuria presence: without hematuria Qualified Code(s): N30.00 - Acute cystitis without hematuria Plan: @ UTI's while on rehab. Both due to E. Coli. Medications at Discharge Home Medications multivitamin (Daily Multi-Vitamin tablet) 1 tab PO DAILY supp 08/16/24 acetaminophen 325 mg tablet 650 mg (2 x 325 mg) PO Q4H PRN PRN Pain 1-10 Or Fever>99.6 #0 tabs 08/22/24 apixaban 2.5 mg tablet 2.5 mg PO BID #60 tabs 09/17/24 atorvastatin 40 mg tablet 40 mg PO QHS cholesterol #30 tabs 09/17/24 cephalexin 500 mg capsule 500 mg PO Q8 #5 caps 09/17/24 cholecalciferol (vitamin D3) 25 mcg (1,000 unit) tablet 25 mcg PO DAILY #30 tabs 09/17/24 ferrous sulfate 325 mg (65 mg iron) tablet (FeroSul) 325 mg PO Q48H #30 tabs 09/17/24 lisinopril 10 mg tablet 10 mg PO BID #60 tabs 09/17/24 melatonin 3 mg tablet 3 mg PO QHS Insomnia #30 tabs 09/17/24 metoprolol tartrate 25 mg tablet 25 mg PO BID #60 tabs 09/17/24 Hospital Course Operations None Procedures Transthoracic echo (The LV systolic function is normal. EF is 65 %. Diastolic function is indeterminate. The left atrium is mildly enlarged. Mild focal mitral valve calcification of the posterior leaflet. Mildly calcified aortic valve. Aortic valve sclerosis without stenosis. Mildly calcified aortic root.) Summary of Care Provided Minutes Spent on Discharge: 38 Hospital Course: BEHZAD HAY, is a 84-year-old F with a past medical history of chronic renal failure stage IV (recent lab with GFR of 74?), history of atrial fibrillation (refused anticoagulation in the past), osteoarthritis, declining memory and hypertension who presented to the emergency department at [facility] on 08/16/2024 with complaints of confusion. She had previous episodes of confusion but, the family felt this was worse. In the emergency department her NIH was 0 and she was awake, alert and answering questions and following commands. Initial blood pressure was elevated at 164/104. A noncontrast brain CT showed no acute intracranial abnormalities but did show chronic age-related microvascular ischemic changes. Chest x-ray had no acute findings. EKG showed atrial fibrillation with a rate of 100. Workup for infection was negative. She was discharged home and told to follow-up with her primary care provider. She and the family were instructed to return to the emergency department if continued confusion. She returned to the emergency department on 08/18/2024 with continued confusion and weakness of the right arm and leg. CTA of the head and neck on that date was suspicious for acute infarct along the high left parietal lobe with a hypodensity in the left caudate nucleus possibly secondary to remote lacunar infarct. 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 MRI confirmed the acute infarct in the left frontal parietal lobe compatible with an MCA distribution. She was admitted to the hospitalist service. LDL was 112 and TSH was 1.6. she was started on a high intensity statin.....Lipitor 40 mg Q HS. Transthoracic echocardiogram showed a left ventricular ejection fraction of 65% and mild left atrial enlargement. There was no significant valvular heart disease and diastolic function was indeterminate. The teleneurologist recommended aspirin and Plavix for 3 weeks and then discontinuing Plavix and continuing aspirin alone. A 30 day event monitor was recommended however since she had a hx of PAF and she had PAF while on telemetry she was started on Eliquis and antiplatelet agents were discontinued. Behzad was discharged to acute inpt rehab at [facility] on 08/22/24. She was mildly anemic at arrival to rehab. Hemoccult stool was +. Her dtr was able to locate her last colonoscopy report and she had only internal and external hemorrhoids. She denied N/V/epigastric pain and heartburn. Eliquis was continued. HGB remained stable on rehab. At the time of DC from rehab the HGB was 11.1. Also on rehab she had 2 episodes of acute cystitis, both due to E. Coli. Both were treated with a cephalosporin and resolved. Behzad's stay on rehab was otherwise unremarkable. She made very good progress on rehab. At the time of DC from rehab she was continent of both stool and urine. She needs assistance with posterior hygiene after a BM for thoroughness. At the time of discharge she was able to do 8 sit to stands in 30 seconds using her upper extremities to rise. She can ascend/descend two 6 inch steps and three 4 inch steps with 2 handrails x 3 Trials to complete 15 steps without a rest break at SBA/CGA. She was ambulating over to 490 feet on various surfaces with a front wheeled walker and standby assist with max cues required for direction. She is supervision/set up with eating, grooming, bathing, upper body dressing, toilet transfer and toileting. She requires only minimal assistance with LB dressing. She is stand by assist for tub.shower transfer. Lab 1 day prior to discharge showed a hemoglobin of 11.1 which is stable. The BUN was 19 and the creatinine is 0.98 which is within her baseline. GFR has ranged from 46-74 during her stay on rehab and this varies with her state of hydration. This is consistent with stage II/IIIa chronic renal failure. Behzad was discharged home on 09/19/24. Appts were scheduled for her to follow up with her PCP (Tasha Deutsch), cardiology (Dr. Balderrama) and with Lakshmi Santana from neurology. C was arranged by the . DME at discharge to include a 3 in 1 commode and a rollator walker. Physical Exam Const alert and no apparent distress Constitutional Narrative: Appropriate General Appearance: cooperative HEENT HEENT Narrative: Mucous membranes are moist. No evidence of thrush. Eyes PERRL, EOMs intact bilaterally, conjunctivae normal and no scleral icterus Eyes Narrative: No discharge from the eyes. Neck supple and no carotid bruits General: trachea midline Chest Chest: symmetrical chest wall rise Resp normal respiratory effort, normal air movement and clear to auscultation bilaterally Effort and Inspection: able to speak in complete sentences Cardio no rub and no gallops Cardio Narrative: Irregular irregular rhythm with controlled ventricular response. She has either a bruit or a MM at the LVOT. Known paroxysmal atrial fibrillation. GI normal to inspection, nondistended, normoactive bowel sounds, soft to palpation and non-tender GI Narrative: No guarding with palpation. Extremity no calf tenderness and no pedal edema Neuro Neuro Narrative: very minimal facial droop now. Still with pronator drift with the RUE but, strength is improved from admission. Also with some weakness in the RLE when compared to the left......no drift on exam. No visual field cuts. No aphasia today but, has trouble following commands. Still having trouble with directions when walking off the rehab floor. Oriented to self, place, year and month. Can tell me she has been on rehab because she had a stroke. No visual field cuts. Able to us the R hand to feed herself at the time of DC. No sensory loss. Sensorium / Orientation: alert Psych cooperative, affect normal, speech normal, activity/motor behavior normal, denies hallucinations and denies suicidal ideation Appearance: grossly normal, appropriate and well kempt Attitude: calm and engaged Activity / Motor Behavior: appropriate eye contact Speech: normal speech Weight / BMI Weight Weight: 113 lb 12.136 oz Body Mass Index (BMI) 20.7 ABG / Lab / Microbiology Data 09/17/24 05:23 09/17/24 05:23 Microbiology: Microbiology 09/17/24 08:30 Stool Stool Lactoferrin - Final 09/13/24 13:50 Urine Catheter - Catheter Urine Culture - Final Escherichia coli 08/27/24 09:05 Stool Stool Occult Blood (ALONSO) - Final Occult Blood Positive Indicators for Scoring Admitted with or Primary Diagnosis of CVA/Stroke: Yes Hx of CVA/Stroke: Yes Modified [place] Score MRS Score at time of Evaluation: 3-Moderate disability NIHSS NIHSS 1a. Level of Consciousness: 0 - Alert; keenly responsive 1b. LOC Questions: 0 - Answers BOTH questions correctly 1c. LOC Commands: 0 - Performs BOTH tasks correctly 2. Best Gaze: 0 - Normal 3. Visual: 0 - No visual loss 4. Facial Palsy: 1 - Minor paralysis (flattened nasolabial fold, asymmetry on smiling) 5a. Left Arm: 0 - No drift; arm holds 90 (or 45) degrees for full 10 seconds 5b. Right Arm: 0 - No drift; arm holds 90 (or 45) degrees for full 10 seconds (pronator drift only) 6a. Left Le - No drift; leg holds 30-degree position for full 5 seconds 6b. Right Le - No drift; leg holds 30-degree position for full 5 seconds (No drift but, R leg is weak when compared to the left) 7. Limb Ataxia: 0 - Absent 8. Sensory: 0 - Normal; no sensory loss 9. Best Language: 0 - No aphasia; normal 10. Dysarthria: 0 - Normal 11. Extinction and Inattention: 0 - No abnormality Total: 1 Stroke Questions Stroke Team Activated: No D/C Instructions Weight Bearing Status: Full weight bearing Call your doctor if you observe: Fever of 101 or Higher, Inability to urinate, Inability to have a bowel movement, Shortness of breath, Dizziness, Fainting spells, Swelling in the ankles, Chest pain, Increased palpitations (irregular heartbeat), Calf discomfort, Uncontrolled pain and - (STROKE symptoms: facial droop, slurred speech, inability to get words out, weakness on 1 side of the body and not the other, numbness on 1 side of the body and not the other, inability to maintain your balance sitting or standing, vertigo. ) DC O2, CPAP, BIPAP Needs RN Home O2 qualification: 2 No Data to Display Home O2 Discharge instructions: No Pending Tests Upon Discharge: none When: Appts have been scheduled for you with neurology, cardiology and with your PCP. They are listed later in this document. Meaningful Use Info Meaningful Use Meaningful Use Diagnoses (Choose all that apply): Ischemic CVA CVA Therapy Assessed for PT,OT and/or ST?: Yes Ischemic Stroke Antithrombotic order at d/c?: No Reason antithrombotic not ordered: Procedure not Indicated (stroke was embolic and she is being discharged on an AC. ) Dx of Atrial fib/flutter?: Yes Anticoagulant at discharge?: Yes Statin Dosing Therapy Reference: STATIN DOSE THERAPY REFERENCE: * Patients > 75 years receive moderate or high dose statin therapy. * Patients 75 years or YOUNGER should receive HIGH intensity statin dose unless contraindicated. You will be required to document reason for non-treatment if statin daily dose does not meet guidelines. HIGH DOSE STATIN THERAPY DAILY Atorvastatin > than or = to 40 mg Rosuvastatin > than or = to 20 mg Amlodipine + Atorvastatin > than or = to 2.5/40 mg Ezetimibe + Simvastatin 10/80 mg Simvastatin 80mg Statins at discharge?: Yes Primary Dx Acute Ischemic CVA?: Yes IV thrombolytic ordered during stay?: No Reason IV thrombolytic not ordered: Procedure not Indicated Discharge Plan Admission Admit Date/Time: 08/22/24 13:55 Primary Reason for Your Visit: POST STROKE DEBILITY Attending Provider: Behzad Dorado Primary Care Provider: Tasha Deutsch Instructions Patient Instructions: Urinary Tract Infections in Women, Discharge Instructions for Stroke, AFib Preventing Stroke, ED Cystitis Female Adult Additional Instructions / Restrictions: 1. Your BP is well controlled at the time of Discharge from rehab. the goal for BP in a pt of your age with a stroke is to keep the BP under 140/80. Your BP is not too low. Signs that the BP may be too low are dizziness, alex with standing), feeling like you are going to pass out, actually passing out when standing, shortness of breath with exertion, racing heart, sweating when you are standing and sometimes nausea with standing for a prolonged period of time. 2. You are sleeping well at night and you have a good appetite. 3. Your lab 1 day prior to discharge from rehab looks very good. You are a little anemic. Your stool does have some blood in it and this is not unusual when your are taking an anticoagulant (blood thinner). You are on and anticoagulant called Eliquis (also called Apixaban). This is to help prevent additional strokes going forward since you have Atrial fibrillation (also called AFIB). This is a problem with the rhythm of the heart and it causes little clots to form in the heart which can then get squeezed out of the heart and go to the brain causing a stroke. You have been diagnosed with internal and external hemorrhoids in the past and I suspect this is why you have blood in the stool. Many people who are on anticoagulants have blood in the stool intermittently. Chronic blood loss can lead to iron deficiency and worsening anemia. I have placed you on an iron supplement which you will take every other day. Iron supplements can cause constipation and it can make your stool look very dark or black. If you are having a problem with constipation you may want to start Metamucil or Miralax to help keep the stool soft. 4. You have had 2 urinary tract infections while on rehab. Both were caused by a bacteria called E. Coli. This bacteria lives in everyone's colon and it is a frequent cause of urinary tract infection, alex in women. Hygiene after a BM is very important. Make sure to wipe from the front to the back after a BM. Your family is looking into getting a bidet to attach to your toilet and this will be very helpful in maintaining good hygiene. Until you get a bidet it would be a good idea to use baby wipes to clean yourself after a BM. In older people the symptoms of a urinary tract infection (UTI) are different than in younger women. As you age you frequently will not have a fever or chills with infection. You may not have burning with urination and this makes it difficult to diagnose. If you have a change in mental status (more confused), new urinary incontinence, increased frequency of urination or nausea you may have a UTI. If you have any of these symptoms call your PCP for advice. They may want to check your urine. As you age you can also have bacteria in the urine even if you do not have a UTI. If you are totally asymptomatic then you probably would not need an antibiotic. 5. If you are having nose bleeds, coughing up blood, have blood in your urine, are having loose stools that are black or maroon colored then you should call your PCP for advice. Also call for sudden onset of severe headache, alex if you have fallen recently. 6. You have made great progress on rehab. You will need continued therapy after Discharge from rehab. Strokes often affect thought processing and you have had a lot of confusion BUT, you are improving with speech therapy. We do not feel you will be safe alone at the time of discharge from rehab and are recommending that you have 24/7 supervision until the speech therapist feels you are able to manage alone for a short time by yourself. I recommend you sign up for a service to provide you with a device you can activate if you fall or have an emergency that you need help with. The high school social studies teacher gave your family information about this. 7. It has been a pleasure having you on rehab. You are always so pleasant and ready to work with therapy and we have all enjoyed watching you get better and better. If you or your family have any questions after you leave rehab please do not hesitate to call me. OFFICE: [phone] CELL: [phone] NURSES STATION ON REHAB: [phone] Discharge Orders/Prescriptions Prescriptions: New cephalexin 500 mg Capsule 500 mg PO Q8 Qty: 5 0RF Rx Instructions: You will only need 5 more doses of this antibiotic once you get home and then you can stop. ferrous sulfate [FeroSul] 325 mg (65 mg iron) Tablet 325 mg PO Q48H Qty: 30 0RF lisinopril 10 mg Tablet 10 mg PO BID Qty: 60 0RF metoprolol tartrate 25 mg Tablet 25 mg PO BID Qty: 60 0RF cholecalciferol (vitamin D3) 25 mcg (1,000 unit) Tablet 25 mcg PO DAILY Qty: 30 0RF apixaban 2.5 mg tablet 2.5 mg PO BID Qty: 60 0RF Continued multivitamin [Daily Multi-Vitamin] Tablet 1 tab PO DAILY acetaminophen 325 mg Tablet 650 mg PO Q4H PRN PRN (Reason: Pain 1-10 Or Fever>99.6) Qty: 0 0RF atorvastatin 40 mg Tablet 40 mg PO QHS Qty: 30 0RF Changed melatonin 3 mg Tablet 3 mg PO QHS Qty: 30 0RF Discontinued lisinopril 30 mg tablet 30 mg PO DAILY metoprolol tartrate 50 mg Tablet 25 mg PO BID Qty: 0 0RF Eliquis 5 mg Tablet 2.5 mg PO BID Qty: 0 0RF cephalexin 500 mg Capsule 500 mg PO Q12 Qty: 2 0RF sennosides-docusate sodium [Stimulant Laxative Plus] 8.6-50 mg Tablet 2 tab PO BID Referrals / Follow Up: Tasha Deutsch CNS [Primary Care Provider] - 10/04/24 10:40 am Swapnil Balderrama MD [Med Staff - Active Staff] - 10/12/24 9:30 am Lakshmi Santana NP-C [Med Staff - Adv Practice Prof] - 10/04/24 9:00 am Disposition Disposition (needs filled in before D/C Order can be placed): Home Health Service Charges/Coding Visit Charges Inpatient E&M: 40100 Disch Hosp >30min
[2024-09-18] MEDS: MELATONIN 3 MG TABLET PO (20:30)
[2024-09-18] MEDS: Atorvastatin Calcium 40 MG Tablet PO (20:31)
[2024-09-19 06:00] VITALS: BP 153/63; PULSE 62; RESP 16; TEMP 36.6; O2SAT 95
[2024-09-19] MEDS: Cephalexin 500 MG Capsule PO (06:13)
[2024-09-19 08:14] VITALS: PULSE 58
[2024-09-19] MEDS: APIXABAN 2.5 MG TABLET (WCH) PO (08:14)
[2024-09-19] MEDS: Cholecalciferol (VIT D3) 25 MCG TABLET (1,000 UNITS) PO (08:14)
[2024-09-19] MEDS: Ferrous Sulfate 325 MG Tablet PO (08:14)
[2024-09-19] MEDS: Multivitamins,Therapeutic Tablet 1 TABLET PO (08:14)
[2024-09-19] MEDS: Lisinopril 10 MG Tablet PO (08:14)
[2024-09-19] MEDS: Metoprolol Tartrate 25 MG Tablet PO (08:14)
[2024-09-19 08:18] VITALS: BP 134/67; PULSE 58
--- NOTE | 2024-09-19 13:00 | NURSING ---
Discharge to home and verbalized understanding and daughter verbalized understanding and reported she read everything on her mychart prior to coming today.
== END 2024-09-19 13:01 | disposition home health service (06) | DRG 57 ==
PROVIDERS: Admitting Provider Internal Medicine; PCP Clinical Nurse Specialist Adult Health; Visit Provider Internal Medicine
DX: I69.351 Hemiplegia and hemiparesis following cerebral infarction affecting right dominant side (principal); N18.4 Chronic kidney disease, stage 4 (severe); N30.01 Acute cystitis with hematuria; I69.318 Other symptoms and signs involving cognitive functions following cerebral infarction; I12.9 Hypertensive chronic kidney disease with stage 1 through stage 4 chronic kidney disease, or unspecified chronic kidney disease; D50.9 Iron deficiency anemia, unspecified; I77.819 Aortic ectasia, unspecified site; I48.0 Paroxysmal atrial fibrillation; I69.322 Dysarthria following cerebral infarction; E78.5 Hyperlipidemia, unspecified; M40.204 Unspecified kyphosis, thoracic region; I69.392 Facial weakness following cerebral infarction; I69.393 Ataxia following cerebral infarction; I69.320 Aphasia following cerebral infarction; Z79.01 Long term (current) use of anticoagulants; Z79.899 Other long term (current) drug therapy; B96.20 Unspecified Escherichia coli [E. coli] as the cause of diseases classified elsewhere
CPT/HCPCS: 36415; 80048; 80053; 81001; 82274; 82306; 83630; 83735; 84100; 85014; 85018; 85027; 87077; 87086; 87088; 87186; 92507; 92523; 94668; 97110; 97112; 97116; 97162; 97166; 97530; 97535; 97802; A4216

== ENCOUNTER 2024-10-18 11:01 | Emergency (ER) | payer MEDICARE, SELFPAY ==
[2024-10-18] VITALS (7 sets, daily range): BP systolic 125–160; BP diastolic 71–107; PULSE 77–98; RESP 14–19; TEMP 36.6–37; O2SAT 95–98; BMI 20.8
[2024-10-18] MEDS: 0.9% Normal Saline (500mL Bag) 500 ML 999 ML IV (11:40)
[2024-10-18 12:01] LABS: Prothrombin Time (Protime)PT. 15.4 SECONDS (11.7-14.9)
[2024-10-18 12:02] LABS: Hematocrit 40.2 % (37-47); Hemoglobin 12.8 g/dL (12.0-15.0); Immature Granulocytes Count 0.020 X10^3/uL (0.0-0.0); Mean Corp Hgb Conc 31.8 g/dL (32-36); Mean Corpuscular Volume 97.8 fL (81-99); Mean Platelet Vol. 9.5 fl (6.2-12.0); NRBC Flagged by Analyzer 0 % (0-5); Partial Thromboplast Time 29.2 Seconds (24.1-36.2); Platelet Count 310 K/mm3 (150-450); RBC Distribution Width CV 12.7 % (11.6-14.6); RBC Distribution Width SD 45.4 fl (35.1-43.9); Red Blood Count 4.11 M/mm3 (4.2-5.4); White Blood Count 8.1 K/mm3 (4.4-11.0)
[2024-10-18] MEDS: HUM PROTHROMBIN CPLX(PCC)-LANS 2,700 UNIT in Viaflex Bag 1 BAG 372.3 UNIT IV (12:14)
[2024-10-18 12:50] LABS: Anion Gap 10 (5-15); BUN 17 mg/dL (4-19); BUN/Creat Ratio 17.9 RATIO (10-20); Calcium,Total 9.6 mg/dL (7.6-11.0); Carbon Dioxide 26.6 mmol/L (21.0-32.0); Chloride 102 mmol/L (98-108); Estimated Creatinine Clearance 33.62 ml/min (50-250); Glucose 98 mg/dL (70-99); Potassium 4.6 mmol/L (3.3-5.1); Troponin T High Sensitivity 26 ng/L (<=14)
== END 2024-10-18 13:38 | disposition other institution (70) ==
PROVIDERS: Emergency Provider Emergency Medicine; PCP Clinical Nurse Specialist Adult Health; Visit Provider Emergency Medicine
DX: I62.9 Nontraumatic intracranial hemorrhage, unspecified (principal); N18.4 Chronic kidney disease, stage 4 (severe); G81.91 Hemiplegia, unspecified affecting right dominant side; I48.0 Paroxysmal atrial fibrillation; R29.708 NIHSS score 8; I12.9 Hypertensive chronic kidney disease with stage 1 through stage 4 chronic kidney disease, or unspecified chronic kidney disease; E78.5 Hyperlipidemia, unspecified; M85.88 Other specified disorders of bone density and structure, other site; M85.811 Other specified disorders of bone density and structure, right shoulder; M85.812 Other specified disorders of bone density and structure, left shoulder; I51.7 Cardiomegaly; Z79.01 Long term (current) use of anticoagulants; Z86.73 Personal history of transient ischemic attack (TIA), and cerebral infarction without residual deficits; Z79.899 Other long term (current) drug therapy
CPT/HCPCS: 70450; 70496; 70498; 71045; 80048; 84484; 85025; 85610; 85730; 93005; 96361; 96365; 96375; 99285; Q9967; A4216; J2405; J7165

== ENCOUNTER 2025-02-20 05:07 | Inpatient (IN) | payer MEDICARE, SELFPAY ==
[2025-02-20] VITALS (11 sets, daily range): BP systolic 144–198; BP diastolic 90–119; PULSE 68–78; RESP 14–25; TEMP 36.4–36.8; O2SAT 94–100; BMI 21.7; BMI 20.9
--- NOTE | 2025-02-20 05:09 | CT_ITS ---
PROCEDURE: STROKE BRAIN/HEAD WITHOUT CONT 02/20/2025 REASON FOR EXAM: NEURO DEFICIT, ACUTE, STROKE SUSPECTED TECHNIQUE: Procedure Code: CTBR.ST Modality: CT Procedure: STROKE BRAIN/HEAD WITHOUT CONT Coronal and Sagittal reconstruction series were provided. One or more dose reduction techniques were used (e.g., Automated exposure control, adjustment of the mA and/or kV according to patient size, use of iterative reconstruction technique. RADIATION DOSE SUMMARY: CTDlvol: 44.99 mGy DLP: 829 mGycm COMPARISON: 10/18/2024. FINDINGS: Interval appearance of ill-defined cortical/subcortical hypodense area in the medial aspects of the right temporal and occipital lobes measuring 7.4 x 2.5 cm, probably acute ischemia in the territory of the right posterior cerebral artery. No associated hemorrhagic changes or midline shift. Mild diffuse cortical atrophy, commensurate with the patient's age. Scattered hypodense foci in the periventricular and subcortical white matter suggestive of chronic ischemic white matter disease. Unchanged left parietal chronic ischemic encephalomalacia. Normal size of the ventricles and extra-axial spaces for the patient's age. Normal basal ganglia and thalami. Normal brainstem. Normal cerebellum. There is no demonstrated extra-axial, intraparenchymal, or intraventricular hemorrhage. Normal calvarium. There is no demonstrated fracture. Normal soft tissue structures. Normal visualized paranasal sinuses. CT/STROKE Brain/Head without Cont IMPRESSION: Interval appearance of ill-defined cortical/subcortical hypodense area in the m edial aspects of the right temporal and occipital lobes measuring 7.4 x 2.5 cm, probably acute ischemia in the territory of the r ight posterior cerebral artery. No associated hemorrhagic changes or midline shift. Findings were discussed with Dr. Tati Rice at 5:28 am EST. Reading [facility]
--- NOTE | 2025-02-20 05:09 | EKG12_ITS ---
Test Reason : STROKE Blood Pressure : */* mmHG Vent. Rate : 69 BPM Atrial Rate : 69 BPM P-R Int : 158 ms QRS Dur : 72 ms QT Int : 444 ms P-R-T Axes : 40 -7 26 degrees QTcB Int : 475 ms Poor data quality, interpretation may be adversely affected Normal sinus rhythm Normal ECG Confirmed by Swapnil Balderrama ([id number]), movie editor LOVELY RAMSEY ([id number]) on 02/21/2025 10:27:46 AM Referred By: Confirmed By: Swapnil Balderrama
--- NOTE | 2025-02-20 05:10 | CT_ITS ---
PROCEDURE: STROKE CTA HEAD AND NECK W/CON 02/20/2025 REASON FOR EXAM: NEURO DEFICIT, ACUTE, STROKE SUSPECTED TECHNIQUE: Procedure Code: [id number].ST.HN Modality: CT Procedure: STROKE CTA HEAD AND NECK W/CON Multiplanar Sagittal and Coronal images were obtained. CONTRAST: Isovue 370 VOLUME: 100 mL One or more dose reduction techniques were used (e.g., Automated exposure control, adjustment of the mA and/or kV according to patient size, use of iterative reconstruction technique). RADIATION DOSE SUMMARY: CTDlvol: 17.5 mGy DLP: 643 mGycm COMPARISON: CT scan on 10/18/2024. 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 Normal bilateral petrous carotid arteries. Calcified atheromatous plaques with mild multifocal stenosis of the right cavernous carotid artery with a normal supraclinoid bifurcation. Calcified atheromatous plaques with mild multifocal stenosis of the left cavernous carotid artery with a normal supraclinoid bifurcation. Normal right A1 segments of the anterior cerebral artery. Normal left A1 segments of the anterior cerebral artery. Normal intact anterior communicating artery (ACOM). Normal bilateral A2 segments of the anterior cerebral arteries. Normal right M1 and M2 segments of the middle cerebral arteries, with a normal M1 bifurcation. Normal left M1 and M2 segments of the middle cerebral arteries, with a normal M1 bifurcation. Normal right posterior communicating artery (PCOM). Normal left posterior communicating artery (PCOM). Normal bilateral vertebral arteries. Normal basilar artery with a normal basilar bifurcation. The visualized bilateral superior cerebellar (SCA) arteries are normal. Normal left P1, P2 and visualized P3 segments of the posterior cerebral arteries. There is no demonstrated aneurysm of the [place] of [place]. 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 RIGHT CAROTID ARTERIES: Normal right common carotid artery (CCA). 20% stenosis of the right common carotid bulb. 20% stenosis of the origin of the right internal carotid (ICA) artery without a hemodynamically significant stenosis. Normal visualized cervical portion of the right internal carotid artery. Normal origin of the right external carotid artery (ECA). LEFT CAROTID ARTERIES: Normal left common carotid artery (CCA). 40% stenosis of the left common carotid bulb. 40% stenosis of the origin of the left internal carotid (ICA) artery without a hemodynamically significant stenosis. Normal remaining visualized cervical portion of the left internal carotid artery. Normal origin of the left external carotid artery (ECA). VERTEBRAL ARTERIES: Normal bilateral vertebral artery without a hemodynamically significant stenosis. 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 Atherosclerosis without high-grade stenosis in the cervical segments of the int ernal carotid arteries. I discussed the findings with Dr. Tati Rice in the emergency department at 6 a.m. EST. Reading Location[facility]
--- OUTSIDE RECORDS SUMMARY | 2025-02-20 05:17 | XMS RPT_ITS | CCD ---
Author Organization [facility] Care Team Providers Care Interlocker Maintainer Name Role Phone TAMIA QUEZADA ([place]) Unavailable Unavailabl e ILYA WEBBER Unavailable Unavailable Suresh Edwards MD Unavailable Lamonte Toney MD Unavailable [phone] Francis De La O MD Unavailable Jose G Harrington PA-C Primary Care Provider Lamonte Toney MD Unavailable Francis De La O MD Unavailable Jose G Harrington PA-C Primary Care Provider Jose G Harrington PA-C Primary Care Provider Haagen COMMUNITY RELATIONS OFFICER.Breann WALSH Unavailable Suppan COMMUNITY RELATIONS OFFICER.AVIATION ELECTRONIC WARFARE OPERATOR, Tasha A Unavailable Suppan COMMUNITY RELATIONS OFFICER.AVIATION ELECTRONIC WARFARE OPERATOR, Tasha A Primary Care Provi edy Suppan COMMUNITY RELATIONS OFFICER.AVIATION ELECTRONIC WARFARE OPERATOR, Tasha A Unavailable Suppan COMMUNITY RELATIONS OFFICER.AVIATION ELECTRONIC WARFARE OPERATOR, Tasha A Primary Care Provi edy Dr. Ricki Reyes MD Emergency Provider [phone] Suppan OUTREACH COORDINATOR, Tasha Primary Care Provider Dr. Fawad Cordon DO Emergency Provider Dr. Mara Mar DO Admit Provider Dr. Mara Mar DO Attending Provider Eric WILLIS, Dr. Robison Attending Provider Enrique WILLIS, Harley Other Provider Unavailable Bong WILLIS, Dr. Hatfield Other Provider Nancy WILLIS, Isa Other Provider Unavailable Rene GOMEZ, Dr. Gambino Other Provider Baltazar WILLIS, Dr. Camacho Other Provider Ronnie WILLIS, Dr. Decker Other Provider Cary WILLIS, Dr. Reddy Other Provider Reuben WILLIS, Dr. Kenny Other Provider Martin WILLIS, Dr. Platt Other Provider Dominik WILLIS, Dr. Costello Other Provider Nara WILLIS, Tyra Other Provider Alondra WILLIS, Dr. Romeo Other Provider Dennis WILLIS, Dr. Serrano Other Provider Ahsan WILLIS, Dr. Kidd Other Provider Rocío WILLIS, Dr. Zoya Glynn Other Provider Yaakov WILLIS, Dr. Daly Other Provider [phone] Santiago WILLIS, Dr. Mosley Other Provider Fatoumata WILLIS, Dr. Ordaz Other Provider Zaid WILLIS, Dr. Nunez Other Provider Unavailable Sven WILLIS, Luc Other Provider Unavailable Gordon WILLIS, Dr. Harley Attending Provider Zaid GOMEZ, Dr. Terry Other Provider Behzad Dorado Unavailable Suppan COMMUNITY RELATIONS OFFICER.AVIATION ELECTRONIC WARFARE OPERATOR, Tasha A Unavailable Sementi DO, Dr. Behzad Escalante Admit Provider Semenalexus DO, Dr. Behzad Escalante Attending Provide r Sementi DO, Dr. Behzad Escalante Other Provider Lizzette CANCHOLA, Mack Unavailable Suppan OUTREACH COORDINATOR, Tasha Referring Provider Lakshmi Raphael Attending Provider [phone] Dr. Mihai Woods DO Emergency Provider Lizzette CANCHOLA, Mack Unavailable [facility] Cardiac Respiration, Other Prim malcom Care Provider MIHAI WOODS Referring Unavailable CONSULT, SURGERY - NEURO Consulting Unavail able SHALOM LEDESMA Attending Unavailable ZOYA SHER Admitting Unavaila ble SUPPAN, TASHA A Attending Unavailable SUPPAN, TASHA A Primary Care Unavailable SUPPAN, TASHA A Attending Unavailable SUPPAN, TASHA A Primary Care Unavailable SUPPAN, TASHA A Referring Unavailable SUPPAN, TASHA A Primary Care Unavailable SUPPAN, TASHA A Attending Unavailable SUPPAN, TASHA A Primary Care Unavailable SUPPAN, TASHA A Referring Unavailable SUPPAN, TASHA A Primary Care Unavailable SUPPAN, TASHA A Attending Unavailable SUPPAN, TASHA A Primary Care Unavailable Suppan, Tasha Primary Care Unavailable Gudla KEVAN Cielo Attending Unavailable Suppan, Tasha Primary Care Unavailable Gudla OLS Cielo Attending Unavailable Suppan, Tasha Primary Care Unavailable Gudla KEVAN, Cielo Attending Unavailable Suppan, Tsaha Primary Care Unavailable Behzad Dorado Consulting Unavaila ble SementiBehzad Attending Unavaila ble SementiBehzad Admitting Unavaila ble Suppan, Tasha Primary Care Unavailable Mihai Woods Attending Unavailable Ricki Reyes Attending Unavailable Suppan, Tasha Primary Care Unavailable Suppan, Tasha Primary Care Unavailable Isai Gonzalez Referring Unavailable Isai Gonzalez Attending Unavailable Mara Mar Admitting Unavailable Mara Mar Attending Unavailable Harley Nunez Consulting Unavailable Suppan, Tasha Primary Care Unavailable Adeli, Amir Consulting Unavailable Hinduja, Isa Consulting Unavailable Rene, Maki Consulting Unavailable Shalom Ledesma Consulting Unavailable Ronnie, Jeronimo Consulting Unavailable Cary, Maureen Consulting Unavailable Bittar, Efraín Consulting Unavailable Lc Salazar Consulting Unavailable Pravin Lehman Consulting Unavailable Tyra Bains Consulting Unavailable Ousmane Cantu Consulting Unavailable Maggie Collins Consulting Unavailable Bernabe Foreman Consulting Unavailable Rocío, Zoya Renard Consulting UnavailAddy Rodgers Consulting Unavailable Henderson, Rami Consulting Unavailable Fatoumata, Orlin Consulting Unavailable Mayra Mar Consulting Unavailable Luc Machuca Consulting Unavailable Mara Mar Admitting Unavailable Mara Mar Attending Unavailable Harley Nunez Consulting Unavailable Suppan, Tasha Primary Care Unavailable AdeLiu lundberg Consulting Unavailable Nancy Isa Consulting Unavailable Rene Maki Consulting Unavailable Shalom Ledesma Consulting Unavailable Jeronimo Trujillo Consulting Unavailable Cary Maureen Consulting Unavailable Reuben, Efarín Consulting Unavailable Lc Salazar Consulting Unavailable Pravin Lehman Consulting Unavailable Beamanda, Tyra Consulting Unavailable Ousmane Cantu Consulting Unavailable Dennis, Maggie Consulting Unavailable Ahsan, Mohamed Consulting Unavailable Rocío, Nenad Renard Consulting UnavailAddy Rodgers Consulting Unavailable Henderson, Rami Consulting Unavailable Fatoumata, Orlin Consulting Unavailable Zaid, Mayra Consulting Unavailable Sven, Eduardosef Consulting Unavailable Mara Mar Consulting Unavailable Suppan, Tasha Primary Care Unavailable Suppan, Tasha Referring Unavailable Lakshmi Santana Attending Unavailable Suppan, Tasha Primary Care Unavailable Gordon, Cricket Attending Unavailable Suppan, Tasha Referring Unavailable GordonDebd Attending Unavailable Suppan, Tasha Primary Care Unavailable Suppan, Tasha Primary Care Unavailable Behzad Dorado Attending Unavaila ble SemenBehzad vaughan Admitting Unavaila ble Suppan, Tasha Primary Care Unavailable Gudla Zac MATHURthi Referring Unavailable Gudla Cielo MATHUR Attending Unavailable Suppan, Tasha Primary Care Unavailable Gudla KEVAN Cielo Attending Unavailable Allergies Allergy Classification Reported Allergen(s) Allergy Type Date of Onset Reaction(s) Facility Adhesive Tape (1 source) Adhesive Tape Substance Allergy 08-27-19 12 Rash [facility] NITROFURANTOIN, MACROCRYSTALS / Nitrofurantoin, Monohydrate (1 source) NITROFURANTOIN, MACROCRYSTALS / Nitrofurantoin, Monohydrate Drug Allergy 09-26-19 Rash [facility] Sulfamethoxazole / Trimethoprim (1 source) Sulfamethoxazole / Trimethoprim Drug Allergy 09-26-19 [facility] Work Phone: (20 sources) Adhesive Tape; Translations: [ADHESIVE TAPE (ROSINS)] Propensity to adverse reactions (disorder) 08-27-[address] [facility] (20 sources) Hmg-Coa Reductase Inhibitors (Statins); Translations: [[id number] REDUCTASE INHIBITORS] Propensity to adverse reactions to drug (disorder) 10-07-[address] [facility] (1 source) UTI MEDICATION drug allergy 06-07-19 rash, itching [facility] Work Phone: (20 sources) NITROFURANTOIN, MACROCRYSTALS / Nitrofurantoin, Monohydrate; Translations: [NITROFURANTOIN MONOHYD/M-CRYST] Drug Allergy 09-26-19 [facility] Work Phone: (20 sources) Sulfamethoxazole / Trimethoprim; Translations: [SULFAMETHOXAZOLE-T RIMETHOPRIM] Drug Allergy 09-26-19 [facility] Work Phone: (7 sources) Nitrofurantoin Drug Allergy 04-07-20 Rash [facility] (3 sources) Adhesive Tape; Translations: [adhesive tape] Allergy to substance 10-13-19 Unknown [facility] (2 sources) Sulfamethoxazole Drug Allergy 10-13-19 Unknown [facility] (2 sources) Trimethoprim Drug Allergy 10-13-19 [facility] (2 sources) Krauawk-Boq-Ith Reductase Inhibitor Propensity to adverse reactions 10-13-19 Unknown [facility] (1 source) Nitrofurantoin Drug Allergy 10-13-19 [facility] (1 source) Sulfamethoxazole Drug Allergy 10-13-19 [facility] (1 source) Trimethoprim Drug Allergy 10-13-19 [facility] (1 source) Hxqtbvn-Caf-Zbi Reductase Inhibitor Drug allergy (disorder) 10-13-19 [facility] Rep[facility] Medications Current Medications Medication Drug Class(es) Dates Sig (Normalized) Sig (Original) 8 hr acetaminophen 650 mg extended release oral tablet (20 sources) Start: 09-22-2024 take 1 tablet by mouth once daily acetaminophen (TYLENOL ARTHRITIS PAIN) 650 mg CR tablet Take 650 mg by mouth once daily. 09/22/2024 Active Start: 08-22-2024 take 1-10 tablets by mouth every four hours as needed for pain Acetaminophen 325 mg Tablet Active 650 mg PO EVERY 4 HOURS NEEDED as needed for Pain 1-10 Or Fever>99.6 0 0 August 22, 2024 12:00am Start: 08-15-2023 End: 09-23-2024 take 2 tablets by mouth every twelve hours as needed for headache and headache acetaminophen (TYLENOL EXTRA STRENGTH) 500 mg tablet Indications: Headache, unspecified headache type [The details of the medication are not available because there are pending changes by a home health clinician.] 360 tablet 3 08/15/2023 09/23/2024 Discontinued Start: 08-15-2023 take 2 tablets by mo [facility] every twelve hours as needed for headache and headache acetaminophen (TYLENOL EXTRA STRENGTH) 500 mg tablet Indications: Headache, unspecified headache type Take 2 tablets by mouth two times a day as needed for pain. 360 tablet 3 08/15/2023 Active End: 10-29-2021 take 1 tablet by mouth every eight hours as needed acetaminophen (TYLENOL ARTHRITIS PAIN) 650 mg CR tablet Take 650 mg by mouth every 8 hours as needed. 0 10/29/2021 Discontinued (Duplicate Entry) take 2 tablets by mo uth twice daily acetaminophen (TYLENOL EXTRA STRENGTH ORAL) Take 2 tablets by mouth twice daily. 0 Active EQ ACETAMINOPHEN 500 MG TABS acetaminophen [phone] Gali Patrick AT Comment on above: Take 2 tablets by mo uth twice daily. Take 650 mg by mouth every 8 hours as needed. albuterol 0.833 mg/ml / ipratropium bromide 0.167 mg/ml inhalation solution (6 sources) Anticholinergic, beta2-Adrenergic Agonist Start: 5 End: 6 take 3 mL by inhalation every six hours ipratropium-albuter ol (DUONEB) 0.5 mg-3 mg(2.5 mg base)/3 mL nebu Indications: Acute CVA (cerebrovascular accident) (HCC) Inhale 3 mL as instructed every 6 hours. Unit dose pack 120 each 11/23/2024 11/23/2025 Active Start: 11-12-2024 End: 12-16-2024 take 3 mL by inhalation every six hours as needed amoxicillin 875 mg / clavulanate 125 mg oral tablet (3 sources) Penicillin-class Antibacterial Start: 04-05-2024 End: 04-15-2024 take 1 tablet by mouth twice daily amoxicillin-clavulanate potassium (AUGMENTIN) 875-125 mg per tablet Indications: Acute non-recurrent maxillary sinusitis Take 1 tablet by mouth two times a day for 10 days. 20 tablet 04/05/2024 04/15/2024 Active apixaban 2.5 mg oral tablet (20 sources) Factor Xa Inhibitor Start: 11-18-2024 Start: 08-23-2024 End: 08-23-2025 take 1 tablet by mouth twice daily apixaban (ELIQUIS) 2.5 mg tab(s) Indications: Paroxysmal atrial fibrillation (HCC) , Cerebrovascular accident (CVA) due to occlusion of cerebral artery (HCC) Take 1 tablet by mouth two times a day. 60 tablet 08/23/2024 08/23/2025 Active Start: 08-22-2024 End: 09-17-2024 take 2.5 mg by mouth twice daily Apixaban (Eliquis) 5 mg Tablet Discontinued 2.5 mg PO TWICE A DAY 0 0 August 22, 2024 12:00am September 17, 2024 10:16am blood thinner Ascorbic Acid / Bioflavonoid s (20 sources) Vitamin C ascorbic acid/bi oflavonoids (JENNIE C ORAL) Take by mouth. Active ascorbic acid/bi oflavonoids (JENNIE C ORAL) Take by mouth. 0 Active Comment on above: Take by mouth. aspirin 81 mg chewable table t (19 sources) Platelet Aggregation Inhibitor, Nonsteroidal Anti-inflammatory Drug Start: 11-16-2024 End: 11-18-2024 Start: 10-25-2024 End: 10-27-2024 Start: 09-24-2018 End: 08-16-2024 take 1 tablet by mouth once daily Aspirin 81 MG tablet,chewable Discontinued 81 mg PO DAILY@0800 September 24, 2018 12:00am August 16, 2024 5:54pm Start: 08-15-2016 take 1 tablet by kushal th once daily aspirin, enteric coated (ASPIRIN, ENTERIC COATED) 81 mg EC tablet Take 1 tablet by mouth once daily. 0 08/15/2016 Active Comment on above: Take 1 tablet by kushal th once daily. 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 90 tablet 3 11/23/2024 11/23/2025 Active CAPSICUM, CAYENNE, ORAL (20 sources) Start: 09-22-2024 take 1 capsule by mouth once daily CAPSICUM, CAYENNE, ORAL Take 1 capsule by mouth once daily. Patient should start on September 22, 2024. 09/22/2024 Active CAPSICUM, CAYENN E, ORAL Take by mouth. Active CAPSICUM, CAYENN E, ORAL Take by mouth. 0 Active Comment on above: Take by mouth. doxazosin 4 mg oral tablet (6 sources) alpha-Adrenergic Coleman Start: 11-15-2024 End: 11-23-2025 doxazosin (CARDURA) 4 mg tablet Indications: Acute CVA (cerebrovascular accident) (HCC) 1 tablet by PEG route once daily. 90 tablet 3 11/23/2024 11/23/2025 Active Start: 11-10-2024 End: 11-16-2024 Start: 11-02-2024 End: 11-10-2024 Start: 10-25-2024 End: 11-01-2024 Food Supplement, Lactose-Free (PROMOTE, OSMOLITE, TWO YOMI, ENSURE PLUS, ENLIVE) liqd (2 sources) Start: 11-23-2024 End: 11-23-2025 Food Supplement, Lactose-Free (PROMOTE, OSMOLITE, TWO YOMI, ENSURE PLUS, ENLIVE) liqd Indications: Acute CVA (cerebrovascular accident) (HCC) 50 mL by PEG route continuous. 30 ml water every 4 hr 1200 mL 11/23/2024 11/23/2025 Active iv contrast (will be provided with radiology test) (1 source) Start: 07-08-2023 End: 07-09-2023 inject 1 dose intravenously once iv contrast (will be provided with radiology test) Indications: Fibromuscular dysplasia (HCC) CTA Head/Neck W No IV access, insert saline lock prior to the sedation, infusion, injection for imaging exam. Discontinue saline lock post exam. If Pt. has a central line or IVAD, may access for administration according to line specific nursing protocol. Once exam is complete flush line and de-access according to line specific nursing protocol in the CT contrast administration guidelines link. 1 Each 0 07/08/2023 07/09/2023 Active Comment on above: CTA Head/Neck W No IV access, insert zhou ine lock prior to the sedation, infusion, injection for imaging exam. Discontinue saline lock post exam. If Pt. has a central line or IVAD, may access for administration according to line specific nursing protocol. Once exam is complete flush line and de-access according to line specific nursing protocol in the CT contrast administration guidelines link. Magnesium (20 sources) take 2 tablets by mouth once daily Magnesium 250 mg tab Take 500 mg by mouth once daily. Active take 2 tablets by mouth once jorge ly Magnesium 250 mg tab Take 500 mg by mouth once daily. 0 Active magnesium 500mg 500mg 2 once a day magnesium 500mg 500mg Gali Patrick AT Comment on above: Take 500 mg by mouth once daily. melatonin 3 mg disintegrating oral tablet (20 sources) Start: 11-23-2024 End: 11-23-2025 melatonin 3 mg ODT Indications: Acute CVA (cerebrovascular accident) (HCC) 2 tablets by PEG route daily at bedtime. 60 tablet 11 11/23/2024 11/23/2025 Active Start: 11-15-2024 End: 12-15-2024 Start: 11-02-2024 End: 11-16-2024 Start: 10-22-2024 End: 11-01-2024 Start: 10-04-2024 take 1 capsule by mo uth at bedtime as needed Melatonin 3 mg capsule Active 3 mg PO BEDTIME as needed October 04, 2024 12:00am Start: 08-22-2024 End: 10-04-2024 take 1 tablet by mouth at bedtime Melatonin 3 mg Tablet Discontinued 3 mg PO AT BEDTIME 30 0 September 17, 2024 10:23am October 04, 2024 9:12am Insomnia MELATONIN ORAL T laura by mouth. Active metoprolol tartrate 25 mg or al tablet (20 sources) beta-Adrenergic Coleman Start: 11-15-2024 End: 02-13-2025 Start: 10-27-2024 End: 10-27-2024 Start: 10-20-2024 End: 10-20-2024 Start: 10-19-2024 End: 11-16-2024 Start: 08-23-2024 End: 08-23-2025 take 1 tablet by mouth twice daily metoprolol tartrate, short acting, (LOPRESSOR) 25 mg tablet Indications: Paroxysmal atrial fibrillation (HCC) Take 1 tablet by mouth two times a day. 180 tablet 3 08/23/2024 08/23/2025 Active Start: 08-22-2024 End: 09-17-2024 Metoprolol Tartrate 50 mg Ta blet Discontinued 25 mg PO TWICE A DAY 0 0 August 22, 2024 12:00am September 17, 2024 10:20am bp Start: 03-31-2023 End: 10-27-2023 take 0.5 tablet by mouth once daily metoprolol succinate ER (TOPROL XL) 25 mg 24 hr tablet Take 0.5 tablets by mouth once daily. 45 tablet 1 03/31/2023 10/27/2023 Discontinued (Clinical Decision) Comment on above: Take 0.5 tablets by mouth once daily. Multivitamin (Daily Multi-Vitamin) tablet (6 sources) Start: 08-16-2024 Multivitamin (Daily Multi-Vitamin) tablet Active 1 {tbl} PO DAILY August 16, 2024 12:00am supp Start: 08-16-2024 Multivitamin ( Daily Multi-Vitamin) tablet Active 1 {tbl} PO DAILY August 16, 2024 12:00am mupirocin 0.02 mg/mg topical ointment (1 source) RNA Synthetase Inhibitor Antibacterial Start: 09-26-2023 End: 10-06-2023 mupirocin (BACTROBAN) 2 % ointment Indications: Acute paronychia of toe of left foot Apply to affected area three times a day for 10 days. 22 g 0 09/26/2023 10/06/2023 Active propylene glycol/peg 400 (SYSTANE ULTRA OPHTHALMIC) (20 sources) propylene glycol /peg 400 (SYSTANE ULTRA OPHTHALMIC) Use in eyes. Active propylene glycol /peg 400 (SYSTANE ULTRA OPHTHALMIC) Use in eyes. 0 Active Comment on above: Use in eyes. solifenacin succinate 5 mg oral tablet (11 sources) Cholinergic Muscarinic Antagonist Start: 04-26-2024 End: 10-23-2024 solifenacin (VESICARE) 5 mg tablet Indications: Stress incontinence [The details of the medication are not available because there are pending changes by a home health clinician.] 30 tablet 5 04/26/2024 09/23/2024 Discontinued triamcinolone acetonide 1 mg/ml topical cream (1 source) Corticosteroid Start: 10-29-2021 End: 01-27-2022 triamcinolone acetonide (KENALOG) 0.1 % cream Apply 1 application to affected area twice daily. 15 g 0 10/29/2021 01/27/2022 Active Comment on above: Apply 1 application to affected area twice daily. water 1000 mg/ml irrigation solution (2 sources) Start: 11-15-2024 End: 02-13-2025 Start: 10-19-2024 End: 11-16-2024 (2 sources) Start: 11-15-2024 End: 02-13-2025 Start: 10-19-2024 End: 11-16-2024 Completed/Discontinued Medications Medication Drug Class(es) Dates Sig (Normalized) Sig (Original) acetaminophen 325 mg / HYDROcodone bitartrate 5 mg oral tablet (8 sources) Opioid Agonist Start: 06-04-2021 End: 08-16-2024 Hydrocodone-Acetami nophen 1 TABLET tablet Discontinued 1 {tbl} PO EVERY 6 HOURS NEEDED as needed for Pain 10 3 0 June 04, 2021 August 16, 2024 3:59pm Complete tear of left rotator cuff Osteoarthritis Unspecified osteoarthritis, unspecified site Start: 06-04-2021 take 1 tablet by kushal th every six hours as needed Hydrocodone-Acetaminophen Active 1 TABLE T PO EVERY 6 HOURS NEEDED 10 3 June 04, 2021 albuterol 0.83 mg/ml inhalation solution (1 source) beta2-Adrenergic Agonist Start: 11-12-2024 End: 11-16-2024 take 2.5 mg by inhalation every six hours as needed amoxicillin 50 mg/ml oral suspension (10 sources) Penicillin-class Antibacterial Start: 11-06-2024 End: 11-10-2024 Start: 11-05-2024 End: 11-06-2024 Start: 04-26-2024 End: 05-06-2024 take 1 capsule by mouth three times daily amoxicillin (AMOXIL) 500 mg capsule Indications: Recurrent UTI (urinary tract infection) Take 1 capsule by mouth three times a day for 10 days. 30 capsule 04/26/2024 05/06/2024 Active Start: 09-24-2018 End: 08-16-2024 take 1 tablet by mouth twice daily Amoxicillin 500 MG tablet Discontinued 500 mg PO TWICE A DAY 17 September 24, 2018 12:00am August 16, 2024 3:59pm ascorbic acid 500 mg extended release oral capsule (5 sources) Vitamin C End: 10-29-2021 Ascorbic Acid (VITAMIN C) 50 0 mg CpER Take by mouth once daily. 0 10/29/2021 Discontinued VITAMIN C 500 MG CAPS ascorbic acid (vitamin c) [phone] Gali Patrick AT Comment on above: Take by mouth once d aily. betamethasone 3 mg/ml / betamethasone acetate 3 mg/ml injectable suspension (1 source) Corticosteroid Start: 2023 End: 2023 betamethasone acetate-betamethaso ne sodium phosphate 6 mg injection (CELESTONE) budesonide 3 mg delayed release oral capsule (4 sources) Corticosteroid Start: 2019 End: 2021 take 2 capsules by mouth once daily as needed budesonide, enteric coated (ENTOCORT EC) 3 mg 24 hr capsule Take 2 capsules by mouth once daily as needed. 180 capsule 3 06/25/2019 10/29/2021 Discontinued Comment on above: Take 2 capsules by m outh once daily as needed. Calcium (1 source) Phosphate Binder, Calcium calcium 1100mg 1100mg 2 once a day calcium 1100mg 1100mg Gali Patrick AT calcium carb and citrat-mag ox 200 mg calcium- 50 mg tab (8 sources) Start: 2021 take 1 tablet by mouth twice daily, then take 1 tablet by mouth twice daily calcium carb and citrat-mag ox 200 mg calcium- 50 mg tab Take 1 tablet by mouth twice daily. Pt reports magnesium calcium citrate combination tablet 1 tablet two times daily 0 06/13/2021 Active Comment on above: Take 1 tablet by [facility] twice daily. Pt reports magnesium calcium citrate combination tablet 1 tablet two times daily ceFAZolin 1000 mg injection (1 source) Cephalosporin Antibacterial Start: 2024 End: 2024 cefTRIAXone 1000 mg injection (1 source) Cephalosporin Antibacterial Start: 2024 End: 2024 take 1 g intravenously every twenty-four hours cephalexin 500 mg oral capsule (11 sources) Cephalosporin Antibacterial Start: 2024 End: 2024 Cephalexin 500 mg Capsule Discontinued 500 mg PO EVERY 8 HOURS 5 0 September 17, 2024 12:00am October 04, 2024 9:11am You will only need 5 more doses of this antibiotic once you get home and then you can stop. Start: 08-22-2024 End: 09-17-2024 take 1 capsule by mouth every twelve hours Cephalexin 500 mg Capsule Discontinued 500 mg PO EVERY 12 HOURS 2 0 August 22, 2024 12:00am August 23, 2024 12:00am September 17, 2024 10:16am atb Start: 09-26-2023 End: 10-03-2023 take 1 capsule by mouth three times daily cephALEXin (KEFLEX) 500 mg capsule Indications: Acute paronychia of toe of left foot Take 1 capsule by mouth three times a day for 7 days. 21 capsule 0 09/26/2023 10/03/2023 Active Start: 07-16-2023 End: 07-23-2023 take 1 capsule by mouth three times daily cephALEXin (KEFLEX) 250 mg capsule Take 1 capsule by mouth three times a day for 7 days. 21 capsule 0 07/16/2023 07/23/2023 Active Comment on above: Take 1 capsule by mo uth three times a day for 7 days. cholecalciferol 0.025 mg oral capsule (20 sources) Vitamin D Start: 09-22-2024 End: 11-23-2024 Cholecalciferol, Vitamin D3, (VITAMIN D) 25 mcg (1,000 unit) cap Take 1,000 Units by mouth once daily. 09/22/2024 11/23/2024 Discontinued (Changing Therapy/Dosage Form) Start: 09-17-2024 take 1 tablet by kushal th once daily Cholecalciferol (Vitamin D3) 25 mcg (1,000 unit) Tablet Active 25 ug PO DAILY 30 September 17, 2024 12:00am take 1 tablet by kushal th once daily cholecalciferol (VITAMIN D3) 5,000 unit tab Take 5,000 Units by mouth once daily. Active D-5000 125 MCG ( 5000 UT) TABS cholecalciferol (vitamin d3) [id number] Gali Patrick AT Comment on above: Take 5,000 Units by mouth once daily. cholestyramine resin 4000 mg powder for oral suspension (4 sources) Bile Acid Sequestrant Start: 08-08-19 End: 10-30-19 22 take 1 dose by mouth three times daily at mealtime cholestyramine (QUESTRAN) 4 gram packet Take 1 Packet by mouth three times daily with meals. 270 Packet 3 08/07/2020 10/29/2021 Discontinued Comment on above: Take 1 Packet by kushal three times daily with meals. cranberry fruit extract (CRANBERRY ORAL) (20 sources) End: 11-24-19 take 650 mg by mouth once daily cranberry fruit extract (CRANBERRY ORAL) Take 650 mg by mouth once daily. 11/23/2024 Discontinued (Changing Therapy/Dosage Form) take 650 mg by mouth once daily cranberry fruit extract (CRANBERRY ORAL) Take 650 mg by mouth once daily. Active take 650 mg by mouth once daily cranberry fruit extract (CRANBERRY ORAL) Take 650 mg by mouth once daily. 0 Active Comment on above: Take 650 mg by mouth once daily. Cranberry preparation (1 source) Non-Standardized Food Allergenic Extract, Non-Standardized Plant Allergenic Extract cranberry capsule cranberry capsule Gali Patrick AT docosahexaenoic acid/epa (FISH OIL ORAL) (2 sources) End: 04-11-2022 docosahexaenoic acid/epa (FISH OIL ORAL) Take by mouth once daily. 0 04/11/2022 Discontinued docosahexaenoic acid/epa (FISH OIL ORAL) Take by mouth once daily. 0 Active Comment on above: Take by mouth once d aily. docusate sodium 50 mg / sennosides, correction 8.6 mg oral tablet (9 sources) Start: 5 End: Sennosides-Docusate Sodium (Stimulant Laxative Plus) 8.6-50 mg Tablet Discontinued 2 {tbl} PO TWICE DAILY NEEDED as needed for Constipation 0 0 August 22, 2024 12:00am August 22, 2024 3:19pm estradiol 0.1 mg/ml vaginal cream (20 sources) Estrogen Start: 4 End: estradiol (ESTRACE) 0.01 % (0.1 mg/gram) vaginal cream Indications: Atrophic vaginitis Apply pea-sized amount to perineum and 1 applicator vaginally Fri, Fri, Fri for atrophic vaginitis. 42.9 g 5 09/09/2023 11/23/2024 Discontinued (Changing Therapy/Dosage Form) etodolac 400 mg oral tablet (7 sources) Nonsteroidal Anti-inflammatory Drug Start: 9 End: take 1 tablet by mouth twice daily Etodolac (Lodine) 400 MG tablet Discontinued 400 mg PO TWICE A DAY September 24, 2018 12:00am August 16, 2024 3:59pm ferrous sulfate 325 mg oral tablet (20 sources) Start: 5 End: 5 take 1 tablet by mouth every other day ferrous sulfate 325 mg (65 mg iron) tablet Indications: Iron deficiency anemia due to chronic blood loss Take 1 tablet by mouth every other day. 15 tablet 5 09/24/2024 10/05/2024 Discontinued (Duplicate Entry) Start: 09-17-2024 End: 10-12-2024 Ferrous Sulfate (Ferosul) 32 5 mg (65 mg iron) Tablet Discontinued 325 mg PO Q48H 30 0 September 17, 2024 12:00am October 12, 2024 9:33am Start: 01-24-2021 End: 10-29-2021 take 1 tablet by mouth twice daily at mealtime ferrous sulfate 325 mg (65 mg iron) tablet Indications: Iron deficiency anemia due to chronic blood loss Take 1 tablet by mouth twice daily with meals. 90 tablet 1 08/01/2021 10/29/2021 Discontinued FERROUS SULFATE 325 (65 Fe) MG TABS ferrous sulfate [id number] Gali Andreranjit AT Comment on above: Take 1 tablet by kushal th twice daily with meals. FLAXSEED OIL ORAL (20 sources) Start: 09-22-2024 End: 11-23-2024 take 1 capsule by mouth once daily FLAXSEED OIL ORAL Take 1 capsule by mouth once daily. Patient should start on September 22, 2024. 09/22/2024 11/23/2024 Discontinued (Changing Therapy/Dosage Form) Start: 09-22-2024 take 1 capsule by mo uth once daily FLAXSEED OIL ORAL Take 1 capsule by mouth once daily. Patient should start on September 22, 2024. 09/22/2024 Active FLAXSEED OIL ORA L Take by mouth. Active FLAXSEED OIL ORA L Take by mouth. 0 Active Comment on above: Take by mouth. FOLIC ACID-VITAMIN B6-VIT B12 ORAL (4 sources) Start: 09-19-2014 End: 10-29-2021 take 1 tablet by mouth once daily FOLIC ACID-VITAMIN B6-VIT B12 ORAL Take 1 tablet by mouth once daily. 0 09/19/2014 10/29/2021 Discontinued (Discontinued by Patient) Start: 09-19-2014 take 1 tablet by kushal th once daily FOLIC ACID-VITAMIN B6-VIT B12 ORAL Take 1 tablet by mouth once daily. 0 09/19/2014 Active Comment on above: Take 1 tablet by kushal th once daily. Garlic preparation (20 sources) Non-Standardized Food Allergenic Extract Start: 09-22-2024 End: 11-23-2024 take 1 tablet by mouth once daily GARLIC ORAL Take 1 tablet by mouth once daily. Patient should start on September 22, 2024. 09/22/2024 11/23/2024 Discontinued (Changing Therapy/Dosage Form) Start: 09-22-2024 take 1 tablet by kushal th once daily GARLIC ORAL Take 1 tablet by mouth once daily. Patient should start on September 22, 2024. 09/22/2024 Active Start: 08-15-2016 End: 10-29-2021 take 1 capsule by mouth once daily Garlic 300 mg cap Take 300 mg by mouth once daily. 0 08/15/2016 10/29/2021 Discontinued Start: 08-15-2016 take 1 capsule by mo ut once daily Garlic 300 mg cap Take 300 mg by mouth once daily. 0 08/15/2016 Active GARLIC ORAL Take by mouth. Active GARLIC ORAL Take by mouth. 0 Active RA GARLIC 580 MG CAPS 1 capsule once a day garlic [id number] Gali Patrick AT Comment on above: Take 300 mg by mouth once daily. Take by mouth. guaiFENesin 20 mg/ml oral solution (1 source) Start: End: take 200 mg nasogastric route every six hours as needed 2 ml sodium hyaluronate 10 mg/ml prefilled syringe (6 sources) Start: End: sodium hyaluronate 20 mg injection (EUFLEXXA) Start: 08-11-2023 End: 08-11-2023 sodium hyaluronate 20 mg inj ection (EUFLEXXA) Start: 08-04-2023 End: 08-04-2023 sodium hyaluronate 20 mg inj ection (EUFLEXXA) labetalol hydrochloride 5 mg/ml injectable solution (1 source) beta-Adrenergic Coleman Start: 10-18-2024 End: 10-18-2024 Lactobacillus acidophilus (20 sources) Start: 09-22-2024 End: 11-23-2024 take 1 capsule by mouth once daily LACTOBACILLUS ACIDOPHILUS (PROBIOTIC ACIDOPHILUS ORAL) Take 1 capsule by mouth once daily. Patient should start on September 22, 2024. 09/22/2024 11/23/2024 Discontinued (Changing Therapy/Dosage Form) Start: 09-22-2024 take 1 capsule by mo uth once daily LACTOBACILLUS ACIDOPHILUS (PROBIOTIC ACIDOPHILUS ORAL) Take 1 capsule by mouth once daily. Patient should start on September 22, 2024. 09/22/2024 Active LACTOBACILLUS AC IDOPHILUS (PROBIOTIC ACIDOPHILUS ORAL) Take by mouth. Active LACTOBACILLUS AC IDOPHILUS (PROBIOTIC ACIDOPHILUS ORAL) Take by mouth. 0 Active PROBIOTIC (LACTO BACILLUS) CAPS lactobacillus acidophilus [id number] Gali Patrick AT Comment on above: Take by mouth. 10 ml lidocaine hydrochloride 10 mg/ml injection (1 source) Antiarrhythmic, Amide Local Anesthetic Start: 06-23-19 End: 06-23-19 lidocaine (PF) 10 mg/mL (1 %) 4 mL injection (XYLOCAINE) linseed oil 1000 mg oral capsule (4 sources) Start: 08-16-19 End: 10-30-19 take 1 capsule by mouth once daily Flaxseed Oil 1,000 mg cap Take 1 capsule by mouth once daily. 0 08/15/2016 10/29/2021 Discontinued (Discontinued by Patient) Comment on above: Take 1 capsule by mo [facility] once daily. lisinopril 10 mg oral tablet (20 sources) Angiotensin Converting Enzyme Inhibitor Start: 10-20-19 End: 10-29-19 Start: 09-17-2024 take 1 tablet by kushal twice daily lisinopril (ZESTRIL) 10 mg tablet Take 10 mg by mouth two times a day. 09/22/2024 Active Start: 07-05-2024 End: 07-05-2025 lisinopril (ZESTRIL) 30 mg t ablet Indications: Primary hypertension [The details of the medication are not available because there are pending changes by a home health clinician.] 90 tablet 3 07/05/2024 09/23/2024 Discontinued Start: 07-16-2023 End: 07-05-2025 take 1 tablet by mouth once daily Lisinopril 30 mg tablet Discontinued 30 mg PO DAILY August 16, 2024 12:00am September 17, 2024 10:19am bp Start: 06-02-2023 End: 08-31-2023 take 2 tablets by mouth once daily lisinopril (ZESTRIL) 10 mg tablet Indications: Primary hypertension Take 2 tablets by mouth once daily. 60 tablet 2 06/02/2023 07/16/2023 Discontinued Start: 05-26-2023 End: 11-15-2024 take 1 tablet by mouth once daily lisinopril (ZESTRIL) 10 mg tablet Take 10 mg by mouth once daily. 09/22/2024 Active Comment on above: Take 1 tablet by kushal once daily. Take 2 tablets by mo ut once daily. 50 ml magnesium sulfate 80 mg/ml injection (1 source) Start: 10-19-19 End: 10-20-19 2 ml midazolam 1 mg/ml injection (1 source) Benzodiazepine Start: 10-20-19 End: 10-20-19 multivitamin ORAL tablet (20 sources) End: 11-24-19 take 1 tablet by mouth once daily multivitamin ORAL tablet Take 1 tablet by mouth once daily. 11/23/2024 Discontinued (Changing Therapy/Dosage Form) take 1 tablet by mouth once tano y multivitamin ORAL tablet Take 1 tablet by mouth once daily. Active take 1 tablet by mouth once tano y multivitamin ORAL tablet Take 1 tablet by mouth once daily. 0 Active Comment on above: Take 1 tablet by [facility] once daily. Multivitamin preparation (1 source) MULTI-VITAMINS T ABS 1 once a day multivitamin [id number] Gali Patrick AT 200 ml niCARdipine hydrochloride 0.2 mg/ml injection (1 source) Dihydropyridine Calcium Channel Coleman Start: End: nitrofurantoin, macrocrystals 25 mg / nitrofurantoin, monohydrate 75 mg oral capsule (12 sources) Nitrofuran Antibacterial Start: End: take 1 capsule by mouth once daily nitrofurantoin monohydrate and macrocrystal (MACROBID) 100 mg capsule Indications: Dysuria , Confusion Take 1 capsule by mouth once daily for 3 days. 3 capsule 10/12/2024 10/15/2024 Start: 10-12-2024 End: 10-12-2024 take 1 capsule by mouth twice daily nitrofurantoin monohydrate and macrocrystal (MACROBID) 100 mg capsule Indications: Dysuria , Confusion Take 1 capsule by mouth two times a day for 5 days. 10 capsule 10/12/2024 10/12/2024 Discontinued Start: 09-24-2018 End: 08-16-2024 Nitrofurantoin Monohyd/M-Cry st 100 capsule Discontinued 100 ng PO TWICE A DAY September 24, 2018 12:00am August 16, 2024 3:59pm omega-3 fatty acids-fish oil (1 source) FISH OIL 1000 MG CAPS 1 capsule once a day omega-3 fatty acids-fish oil [id number] Gali RAMIREZ omeprazole 20 mg delayed release oral capsule (4 sources) Proton Pump Inhibitor Start: 1 End: 2 take 1 capsule by mouth once daily before breakfast omeprazole (PRILOSEC) 20 mg capsule Take 1 capsule by mouth daily before breakfast. 1/2 hr before meal. 90 capsule 1 02/12/2021 10/29/2021 Discontinued Comment on above: Take 1 capsule by mo [facility] daily before breakfast. 1/2 hr before meal. perflutren lipid microspheres 1.3 mL in NaCl (PF) 0.9% 10 mL injection (DEFINITY) (20 sources) Start: 2 End: perflutren lipid microspheres 1.3 mL in NaCl (PF) 0.9% 10 mL injection (DEFINITY) polyethylene glycol 3350 [id number] mg powder for oral solution (3 sources) Osmotic Laxative Start: End: Start: 10-25-2024 End: 11-02-2024 QUEtiapine 25 mg oral tablet (16 sources) Atypical Antipsychotic Start: 11-16-2024 End: 11-16-2024 Start: 11-14-2024 End: 11-14-2024 Start: 11-14-2024 End: 11-14-2024 Start: 11-05-2024 End: 11-05-2024 Start: 11-01-2024 End: 11-12-2024 Start: 10-28-2024 End: 11-03-2024 Start: 10-22-2024 End: 10-26-2024 Start: 10-20-2024 End: 10-20-2024 sennosides, correction 8.6 mg oral tablet (3 sources) Start: 10-18-2024 End: 11-16-2024 250 ml sodium chloride 9 mg/ ml injection (20 sources) Start: 11-11-2024 End: 11-16-2024 Start: 11-05-2024 End: 11-05-2024 Start: 10-26-2024 End: 10-26-2024 Start: 10-19-2024 End: 10-19-2024 Start: 10-18-2024 End: 11-16-2024 Start: 04-11-2022 End: 07-11-2023 sodium chloride 0.9 % (flush ) 10 mL (BD POSIFLUSH) sulfamethoxazole 40 mg/ml / trimethoprim 8 mg/ml oral suspension (1 source) Dihydrofolate Reductase Inhibitor Antibacterial, Sulfonamide Antimicrobial Start: 11-04-2024 End: 11-05-2024 traZODone hydrochloride 50 mg oral tablet (1 source) Serotonin Reuptake Inhibitor Start: 11-10-2024 End: 11-10-2024 Turmeric extract (20 sources) Start: 09-22-2024 End: 11-23-2024 take 1 tablet by mouth once daily TURMERIC ORAL Take 1 tablet by mouth once daily. Patient should start on September 22, 2024. 09/22/2024 11/23/2024 Discontinued (Changing Therapy/Dosage Form) Start: 09-22-2024 take 1 tablet by kushal th once daily TURMERIC ORAL Take 1 tablet by mouth once daily. Patient should start on September 22, 2024. 09/22/2024 Active TURMERIC ORAL Ta ke by mouth. Active TURMERIC ORAL Ta ke by mouth. 0 Active Comment on above: Take by mouth. divalproex sodium 125 mg del ayed release oral capsule (3 sources) Mood Stabilizer, Anti-epileptic Agent Start: 11-16-2024 End: 11-16-2024 Start: 11-16-2024 End: 11-16-2024 vitamin b12 0.5 mg chewable tablet (20 sources) Vitamin B12 Start: 04-27-2024 End: 04-27-2025 take 1 tablet by mouth once daily cyanocobalamin, vitamin B-12, 500 mcg chew Take 1 tablet by mouth once daily. 30 tablet 11 04/27/2024 11/23/2024 Discontinued (Changing Therapy/Dosage Form) Start: 08-15-2016 End: 10-27-2023 Cyanocobalamin 2,500 mcg sub l Dissolve 1 tablet under the tongue once daily. 0 08/15/2016 10/27/2023 Discontinued (Discontinued by Patient) take 1 tablet by kushal th once daily cyanocobalamin (VITAMIN B-12) 1,000 mcg tab Take 1,000 mcg by mouth once daily. Active B-12 1000 MCG CA PS 1 capsule once a day cyanocobalamin (vitamin b-12) [id number] Gali Patrick AT Comment on above: Dissolve 1 tablet un edy the tongue once daily. vitamin e 180 mg oral capsule (4 sources) Start: 08-15-2016 End: 10-29-2021 take 1 capsule by mouth once daily alpha tocopheryl acetate (VITAMIN E) 400 unit capsule Take 1 capsule by mouth once daily. 0 08/15/2016 10/29/2021 Discontinued (Discontinued by Patient) Comment on above: Take 1 capsule by [facility] once daily. Zinc (20 sources) Start: 09-22-2024 End: 11-23-2024 take 50 mg by mouth once daily ZINC ORAL Take 50 mg by mouth once daily. 09/22/2024 11/23/2024 Discontinued (Changing Therapy/Dosage Form) Start: 09-22-2024 take 50 mg by mouth once daily ZINC ORAL Take 50 mg by mouth once daily. 09/22/2024 Active Zinc 50 mg tab T laura by mouth once daily. Active Zinc 50 mg tab T laura by mouth once daily. 0 Active Comment on above: Take by mouth once d aily. Zinc Acetate (1 source) zinc acetate cap elyssa zinc acetate capsule Gali Patrick AT (9 sources) Start: 11-13-2024 End: 11-16-2024 [Order 1 Start] Name: Heparin injection 5,000 Units Signed Summary: 5,000 Units, Subcutaneous, EVERY 8 HOURS (0800/1600/2200), First dose (after last modification) on Fri11/13/24 at 0800, Until Discontinued [Order 1 End] Start: 11-09-2024 End: 11-16-2024 [Order 1 Start] Name: aspiri n chewable tablet 81 mg Signed Summary: 81 mg, Per NG tube, DAILY, First dose (after last modification) on Fri11/09/24 at 0900, Until Discontinued [Order 1 End] [Order 2 Start] Name: aspirin suppository 300 mg Signed Summary: 300 mg, Rectal, DAILY, First dose (after last modification) on Fri11/09/24 at 0900, Until Discontinued [Order 2 End] Start: 11-02-2024 End: 11-04-2024 take 2 g intravenously every eight hours Start: 10-27-2024 End: 11-09-2024 Start: 10-19-2024 End: 11-13-2024 [Order 1 Start] Name: MABEL LANDIS COUNT Signed Summary: Routine, EVERY 3 DAYS AM LAB, First occurrence on Fri10/19/24 at 1043, Until Specified, New collection [Order 1 End] Start: 10-19-2024 End: 11-16-2024 take 10 mg intravenously every hour as needed [Order 1 Start] Name: Labetalol (NORMODYNE) injection 10 mg Signed Summary: 10 mg, Intravenous, EVERY 1 HOUR NEEDED, Starting on Fri10/19/24 at 1006, Until Fri11/16/24 at 1724, SBP > 160 mmHg with HR >60 bpm, Use as initial dose. Use if Heart Rate GREATER THAN 60 beats per minute. Higher dose may be administered if lower dose was previously documented as ineffective 10 minutes after administration and did not result in adverse effects (HR 160 mmHg with HR >60 bpm, Use if Heart Rate GREATER THAN 60 beats per minute. Higher dose may be administered if lower dose was previously documented as ineffective 10 minutes after administration and did not result in adverse effects (HR<60). Decrease back to lower dose if patient has adverse effects, or no PRN used in previous 3 hours. For vials: labetalol should be treated as a SINGLE USE VIAL. Discard remaining contents after one use. [Order 2 End] Start: 10-19-2024 End: 11-16-2024 take 10 mg intravenously every hour as needed [Order 1 Start] Name: hydrALAZINE (APRESOLINE) injection 10 mg Signed Summary: 10 mg, Intravenous, EVERY 1 HOUR NEEDED, Starting on Fri10/19/24 at 1006, Until Fri11/16/24 at 1724, SBP > 160 mmHg with HR 90). [Order 1 End] [Order 2 Start] Name: hydrALAZINE (APRESOLINE) injection 20 mg Signed Summary: 20 mg, Intravenous, EVERY 1 HOUR NEEDED, Starting on Fri10/19/24 at 1006, Until Fri11/16/24 at 1724, SBP > 160 mmHg with HR 90). Decrease back to lower dose if patient has adverse effects, or no PRN used in previous 3 hours. [Order 2 End] Start: 10-19-2024 End: 11-16-2024 take 4 mg intravenously every six hours as needed [Order 1 Start] Name: Ondansetron 4mg/2ml (ZOFRAN) injection 4 mg Signed Summary: 4 mg, Intravenous, EVERY 6 HOURS NEEDED, Starting on Fri10/19/24 at 0958, Until Fri11/16/24 at 1724, Nausea / Vomiting [Order 1 End] [Order 2 Start] Name: Ondansetron (ZOFRAN) tablet 4 mg Signed Summary: 4 mg, Per NG tube, EVERY 6 HOURS NEEDED, Starting on Fri10/19/24 at 0958, Until Fri11/16/24 at 1724, Nausea / Vomiting [Order 2 End] Start: 10-18-2024 End: 11-16-2024 take 325 mg nasogastric route every four hours as needed [Order 1 Start] Name: Acetaminophen (TYLENOL) tablet 325 mg Signed Summary: 325 mg, Per NG tube, EVERY 4 HOURS NEEDED, Starting on Fri10/18/24 at 1410, Until Fri11/16/24 at 1724, Mild Pain, Moderate Pain, Maximum dose of acetaminophen is 4000 mg from all sources in 24 hours. [Order 1 End] [Order 2 Start] Name: Acetaminophen (TYLENOL) tablet 650 mg Signed Summary: 650 mg, Per NG tube, EVERY 4 HOURS NEEDED, Starting on Fri10/18/24 at 1410, Until Fri11/16/24 at 1724, Severe Pain, Oral temp > 99.5, Maximum dose of acetaminophen is 4000 mg from all sources in 24 hours. [Order 2 End] (1 source) Start: 10-26-2024 End: 10-26-2024 (1 source) Start: 10-19-2024 End: 10-19-2024 Problems Active Problems Problem Classification Problem Date Documented Da te Episodic/Chronic Acute cerebrovascular disease (20 sources) Cerebrovascular accident; Translations: [Cerebral infarction, unspecified] Onset: 09-23-2024 08-18-2024 Chronic Comment on above: 08/18/[address] [place] of the left frontoparietal lobe Allergic reactions (1 source) Inflammatory dermatosis; Translations: [Irritant contact dermatitis, unspecified cause] Episodic Cardiac dysrhythmias (20 sources) Atrial fibrillation; Translations: [Unspecified atrial fibrillation] Onset: 04-11-2022 Chronic Comment on above: On Eliquis Chronic kidney disease (20 sources) Chronic kidney disease stage 3; Translations: [Chronic renal insufficiency, stage 3 (moderate)] Onset: 02-27-2017 02-27-2017 Chronic Chronic ulcer of skin (1 source) Pressure ulcer of other site, stage 1; Translations: [Pressure ulcer, other site] 04-26-2024 Chronic Conditions associated with dizziness or vertigo (2 sources) Dizziness; Translations: [Dizziness and giddiness] 05-26-2023 Episodic Deficiency and other anemia (2 sources) Iron deficiency anemia due to blood loss; Translations: [Iron deficiency anemia secondary to blood loss (chronic)] Chronic Deficiency and other anemia (2 sources) Iron deficiency anemia; Translations: [Iron deficiency anemia, unspecified] Episodic Deficiency and other anemia (8 sources) Normocytic normochromic anemia; Translations: [Anemia, unspecified] 08-23-2024 Episodic Deficiency and other anemia (1 source) Anemia; Translations: [Anemia, unspecified] Onset: 11-12-2024 11-16-2024 Episodic Disorders of lipid metabolism (11 sources) Dyslipidemia; Translations: [Hyperlipidemia, unspecified] Onset: 09-23-2024 08-23-2024 Chronic Comment on above: LDL is 112 with trig lycerides of 75 and an HDL of 62 on no statin. Essential hypertension (20 sources) Essential hypertension; Translations: [Essential (primary) hypertension] Onset: 12-30-2022 12-30-2022 Chronic Genitourinary symptoms and ill-defined conditions (3 sources) Genuine stress incontinence; Translations: [Stress incontinence (female) (male)] Onset: 04-26-2024 10-27-2023 Chronic Headache; including migraine (1 source) Headache; Translations: [Headache, unspecified headache type] 08-15-2023 Episodic Intracranial injury (14 sources) Concussion injury of body structure; Translations: [Concussion] 04-15-2022 Episodic Joint disorders and dislocations; trauma-related (1 source) Patellofemoral syndrome of left knee; Translations: [Patellofemoral disorders, left knee] 06-23-2023 Chronic Late effects of cerebrovascular disease (3 sources) Dysphagia; Translations: [Dysphagia following cerebral infarction] Onset: 10-18-2024 11-02-2024 Chronic Miscellaneous mental health disorders (2 sources) Primary insomnia; Translations: [Primary insomnia] 08-15-2023 Chronic Noninfectious gastroenteritis (20 sources) Collagenous colitis; Translations: [Collagenous colitis] Onset: 12-21-2018 09-11-2020 Chronic Nutritional deficiencies (20 sources) Vitamin D deficiency; Translations: [Vitamin D deficiency, unspecified] Onset: 02-27-2017 02-27-2017 Chronic Nutritional deficiencies (1 source) Cobalamin deficiency; Translations: [Deficiency of other specified B group vitamins] 06-02-2023 Episodic Occlusion or stenosis of precerebral arteries (2 sources) Bilateral stenosis of carotid arteries; Translations: [Occlusion and stenosis of bilateral carotid arteries] 07-08-2023 Chronic Osteoarthritis (20 sources) Osteoarthritis of right hip joint; Translations: [Unilateral primary osteoarthritis, right hip] Onset: 02-27-2017 02-27-2017 Chronic Other acquired deformities (8 sources) Kyphosis of thoracic spine; Translations: [Unspecified kyphosis, thoracic region] 08-26-2024 Chronic Other acquired deformities (1 source) Unspecified kyphosis, thoracic region; Translations: [Unspecified kyphosis, thoracic region] Onset: 09-16-2024 Chronic Other aftercare (8 sources) Long-term current use of anticoagulant; Translations: [intermission coordinator (current) use of anticoagulants] 08-23-2024 Episodic Other and ill-defined cerebrovascular disease (8 sources) Ataxia; 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] 08-23-2024 Chronic Other and ill-defined cerebrovascular disease (5 sources) Cerebral arterial aneurysm; Translations: [Cerebral aneurysm, nonruptured] 10-06-2024 Chronic Comment on above: CTA head neck ( 025): 2-3 mm saccular aneurysm arising from the inferior surface of the terminal supraclinoid LEFT ICA Other and ill-defined cerebrovascular disease (2 sources) Other cerebrovascular disease; 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] Onset: 09-23-2024 Chronic Other circulatory disease (1 source) Fibromuscular dysplasia of wall of artery; Translations: [Arterial fibromuscular dysplasia] 07-08-2023 Chronic Other circulatory disease (2 sources) Carotid bruit; Translations: [Other specified symptoms and signs involving the circulatory and respiratory systems] 05-26-2023 Episodic Other circulatory disease (6 sources) H/O: atrial fibrillation; Translations: [Personal history of other diseases of the circulatory system] 08-16-2024 Episodic Other connective tissue disease (2 sources) History of total hip arthroplasty; Translations: [Presence of unspecified artificial hip joint] Onset: 06-07-2021 06-22-2021 Chronic Other connective tissue disease (1 source) Unspecified rotator cuff tear or rupture of left shoulder, not specified as traumatic; Translations: [Rupture of rotator cuff of shoulder] Onset: 06-07-2021 06-07-2021 Episodic Other connective tissue disease (7 sources) Full thickness rotator cuff tear; Translations: [Complete rotator cuff tear or rupture of left shoulder, not specified as traumatic] 06-12-2021 Episodic Other connective tissue disease (1 source) Pain of left thigh; Translations: [Pain in left thigh] 06-13-2021 Episodic Other ear and sense organ disorders (1 source) Impacted cerumen in right ear; Translations: [Impacted cerumen, right ear] 10-24-2022 Episodic Other fractures (1 source) Fracture of rib; Translations: [Fracture of one rib, left side, initial encounter for closed fracture] Onset: 06-07-2021 06-07-2021 Episodic Other gastrointestinal disorders (20 sources) Irritable bowel syndrome; Translations: [Irritable bowel syndrome without diarrhea] Onset: 12-21-2018 12-21-2018 Chronic Other gastrointestinal disorders (1 source) Irritable bowel syndrome with diarrhea; Translations: [Irritable bowel syndrome with diarrhea] Chronic Other gastrointestinal disorders (8 sources) Occult blood in stools; Translations: [Other fecal abnormalities] 09-07-2024 Episodic Other nervous system disorders (8 sources) Aphasia 08-23-2024 Chronic Other nervous system disorders (14 sources) Dysarthria; Translations: [Dysarthria and anarthria] 08-18-2024 Episodic Other nervous system disorders (6 sources) Dysmetria; Translations: [Other lack of coordination] 08-18-2024 Episodic Other non-traumatic joint disorders (1 source) Hip pain; Translations: [Pain in left hip] Onset: 06-22-2021 06-22-2021 Episodic Other non-traumatic joint disorders (3 sources) Pain in left knee; Translations: [Pain in joint, lower leg] 06-23-2023 Episodic Other upper respiratory disease (1 source) Seasonal allergic rhinitis; Translations: [Other seasonal allergic rhinitis] 10-12-2024 Chronic Other upper respiratory disease (1 source) Other seasonal allergic rhinitis; Translations: [Seasonal allergic rhinitis, unspecified trigger] Onset: 10-12-2024 Chronic Paralysis (1 source) Hemiplegia, unspecified affecting right dominant side; Translations: [Hemiplegia, unspecified affecting right dominant side] Onset: 10-22-2024 Chronic Peripheral and visceral atherosclerosis (1 source) Peripheral vascular disease, unspecified; Translations: [Peripheral vascular disease, unspecified] 12-05-2023 Chronic Residual codes; unclassified (1 source) Menopause present; Translations: [Asymptomatic menopausal state] Episodic Residual codes; unclassified (1 source) Postmenopausal state; Translations: [Asymptomatic menopausal state] Episodic Residual codes; unclassified (1 source) Pain; Translations: [Pain, unspecified] 06-23-2023 Episodic Residual codes; unclassified (5 sources) Transient altered mental status; Translations: [Disorientation, unspecified] 08-16-2024 Episodic Residual codes; unclassified (7 sources) Altered mental status; Translations: [Altered mental status, unspecified] 08-18-2024 Episodic Residual codes; unclassified (1 source) Confusional state; Translations: [Disorientation, unspecified] 10-12-2024 Episodic Respiratory failure; insufficiency; arrest (adult) (1 source) Respiratory failure; insufficiency; arrest (adult); Translations: [Chronic renal insufficiency, stage 3 (moderate) ([facility])] Onset: 02-27-2017 Skin and subcutaneous tissue infections (1 source) Paronychia of toe of left foot; Translations: [Cellulitis of left toe] 09-26-2023 Episodic Spondylosis; intervertebral disc disorders; other back problems (20 sources) Degeneration of cervical intervertebral disc; Translations: [Other cervical disc degeneration, unspecified cervical region] Onset: 02-27-2017 02-27-2017 Chronic Sprains and strains (1 source) Traumatic rupture of rotator cuff; Translations: [Strain of muscle(s) and tendon(s) of the rotator cuff of left shoulder, sequela] Episodic Superficial injury; contusion (2 sources) Ecchymosis; Translations: [Contusion of unspecified part of head, initial encounter] Onset: 06-07-2021 06-07-2021 Episodic Transient cerebral ischemia (2 sources) Cerebral ischemia; Translations: [Transient cerebral ischemic attack, unspecified] 05-26-2023 Chronic Unclassified (5 sources) 1 week after discharge from rehab Unclassified (5 sources) 4 to 8 weeks for atrial fibrillation Unclassified (5 sources) Please follow-up in 6 to 8 weeks Unclassified (2 sources) Chronic atrial fibrillation, unspecified; Translations: [Chronic atrial fibrillation, unspecified] Onset: 10-18-2024 Past or Other Problems Problem Classification Problem Date Documented Da te Episodic/Chronic Abdominal hernia (20 sources) Hiatal hernia; Translations: [Diaphragmatic hernia without obstruction or gangrene] Onset: 09-11-2020 09-11-2020 Episodic Deficiency and other anemia (1 source) Other iron deficiency anemias; Translations: [Other iron deficiency anemia] Onset: 04-26-2024 Episodic Deficiency and other anemia (1 source) Anemia, unspecified; Translations: [Anemia, unspecified] Onset: 09-16-2024 Episodic E Codes: Fall (20 sources) Fall; Translations: [Unspecified fall, initial encounter] Onset: 06-05-2021 06-10-2021 Episodic Genitourinary symptoms and ill-defined conditions (20 sources) Dysuria; Translations: [Dysuria] Onset: 04-05-2024 08-15-2023 Episodic Malaise and fatigue (20 sources) Right hemiparesis; Translations: [Weakness] Onset: 09-23-2024 08-23-2024 Episodic Other aftercare (2 sources) intermission coordinator (current) use of anticoagulants; Translations: [assisted (current) use of anticoagulants] Onset: 09-23-2024 Episodic Other connective tissue disease (1 source) Spontaneous rupture of extensor tendons, left hand; Translations: [Spontaneous rupture of extensor tendons, left hand] Onset: 11-12-2016 Episodic Other connective tissue disease (20 sources) Triggering of digit; Translations: [Trigger finger, right ring finger] Onset: 08-15-2016 08-15-2016 Episodic Other connective tissue disease (20 sources) Spontaneous rupture of extensor tendon of left hand; Translations: [Spontaneous rupture of extensor tendons, left hand] Onset: 09-23-2016 09-23-2016 Episodic Other connective tissue disease (20 sources) Acquired trigger finger; Translations: [Trigger finger, unspecified finger] Onset: 12-10-2016 12-10-2016 Episodic Other connective tissue disease (20 sources) Rotator cuff arthropathy of left shoulder; Translations: [Unspecified rotator cuff tear or rupture of left shoulder, not specified as traumatic] Onset: 10-29-2021 10-29-2021 Episodic Other gastrointestinal disorders (2 sources) Other fecal abnormalities; Translations: [Other fecal abnormalities] Onset: 09-23-2024 Episodic Other injuries and conditions due to external causes (1 source) Unspecified injury of unspecified muscle, fascia and tendon at wrist and hand level, left hand, subsequent encounter; Translations: [Unspecified injury of unspecified muscle, fascia and tendon at wrist and hand level, left hand, subsequent encounter] Onset: 10-17-2016 Episodic Other injuries and conditions due to external causes (20 sources) Injury of extensor tendon of hand; Translations: [Unspecified injury of unspecified muscle, fascia and tendon at wrist and hand level, unspecified hand, initial encounter] Onset: 08-15-2016 08-15-2016 Episodic Other nervous system disorders (2 sources) Other symptoms and signs involving cognitive functions and awareness; Translations: [Other symptoms and signs involving cognitive functions and awareness] Onset: 09-23-2024 Episodic Other nervous system disorders (2 sources) Ataxia, unspecified; Translations: [Ataxia, unspecified] Onset: 09-23-2024 Episodic Other nervous system disorders (2 sources) Dysarthria and anarthria; Translations: [Dysarthria and anarthria] Onset: 09-23-2024 Episodic Other nervous system disorders (1 source) Other lack of coordination; Translations: [Other lack of coordination] Onset: 08-22-2024 Episodic Other non-traumatic joint disorders (20 sources) Pain in right shoulder; Translations: [Pain in joint, shoulder region] Onset: 04-16-2023 05-21-2023 Episodic Other non-traumatic joint disorders (20 sources) Shoulder pain; Translations: [Pain in left shoulder] Onset: 04-16-2023 05-21-2023 Episodic Other screening for suspected conditions (not mental disorders or infectious disease) (6 sources) Patient encounter status; Translations: [Encounter for screening for diabetes mellitus] Onset: 04-26-2024 04-26-2024 Episodic Other upper respiratory infections (2 sources) Acute maxillary sinusitis; Translations: [Acute maxillary sinusitis, unspecified] Onset: 04-05-2024 04-05-2024 Episodic Residual codes; unclassified (2 sources) Disorientation, unspecified; Translations: [Confusion] Onset: 10-12-2024 Episodic Spondylosis; intervertebral disc disorders; other back problems (20 sources) Neck pain; Translations: [Cervicalgia] Onset: 04-16-2023 10-24-2022 Episodic Unclassified (1 source) Problem Unclassified (20 sources) Iatrogenic Jesse's disease; 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 Appropriately treated with antibiotics prior to admission to rehab on 08/22/24. Results Test Name Value Interpretation Reference Range Facility Basic Metabolic Profile (BMP )on 01-25-2025 BUN/CRE 27.0 RATIO High 01-31 [facility] Comment on above: Order Comment: 101.1 Performed By: #### L 500.2500, L100.0100 ####[facility] [address] [place], [address] Calcium [Mass/Vol] 9.5 mg/dL Normal 7.6-11.0 [facility] Comment on above: Order Comment: 101.1 Performed By: #### L 500.2500, L100.0100 ####[facility] [address] [place], [address] Chloride [Moles/Vol] 103 mmol/L Normal 98-108 [facility] Comment on above: Order Comment: 101.1 Performed By: #### L 500.2500, L100.0100 ####[facility] [address] [place], [address] CO2 [Moles/Vol] 26.6 mmol/L Normal 21.0-32.0 [facility] Comment on above: Order Comment: 101.1 Performed By: #### L 500.2500, L100.0100 ####[facility] [address] [place], [address] Creatinine [Mass/Vol] 0.74 mg/dL Normal 0.70-1.20 [facility] Comment on above: Order Comment: 101.1 Performed By: #### L 500.2500, L100.0100 ####[facility] [address] [place], [address] GAP 10 Normal 5-15 [facility] Comment on above: Order Comment: 101.1 Performed By: #### L 500.2500, L100.0100 ####[facility] [address] [place], [address] GFR/1.73 sq M.predicted among non-blacks MDRD (S/P/Bld) [Vol rate/Area] 78 mL/min/{1.73_m2} Normal >60 [facility] Comment on above: Order Comment: 101.1 Result Comment: mL/m in/1.73m2 CKD-EPI Creatinine Equation (2020) Performed By: #### L 500.2500, L100.0100 ####[facility] [address] [place], [address] Glucose [Mass/Vol] 105 mg/dL High 70-99 [facility] Comment on above: Order Comment: 101.1 Performed By: #### L 500.2500, L100.0100 ####[facility] [address] [place], [address] Potassium [Moles/Vol] 4.2 mmol/L Normal 3.3-5.1 [facility] Comment on above: Order Comment: 101.1 Performed By: #### L 500.2500, L100.0100 ####[facility] [address] [place], [address] Sodium [Moles/Vol] 140 mmol/L Normal 133-145 [facility] Comment on above: Order Comment: 101.1 Performed By: #### L 500.2500, L100.0100 ####[facility] [address] [place], [address] Urea nitrogen [Mass/Vol] 20 mg/dL High 4-19 [facility] Comment on above: Order Comment: 101.1 Performed By: #### L 500.2500, L100.0100 ####[facility] [address] [place], [address] CBC W/Diff, Automatedon 10- Absolute Lymph 0.96 X10 3/uL Normal 0.83-4.51 [facility] Comment on above: Order Comment: 101.1 Performed By: #### L 500.2500, L100.0100 ####[facility] [address] [place], [address] Absolute Neut 5.3 X10 3/uL Normal 2.0-7.7 [facility] Comment on above: Order Comment: 101.1 Performed By: #### L 500.2500, L100.0100 ####[facility] [address] [place], [address] Basophils/100 WBC (Bld) 1.1 % High 0-1 [facility] Comment on above: Order Comment: 101.1 Performed By: #### L 500.2500, L100.0100 ####[facility] [address] [place], [address] Eosinophils/100 WBC (Bld) 6.6 % High 0-5 [facility] Comment on above: Order Comment: 101.1 Performed By: #### L 500.2500, L100.0100 ####[facility] [address] [place], [address] Erythrocyte distribution width (RBC) [Ratio] 13.2 % Normal 11.6-14.6 [facility] Comment on above: Order Comment: 101.1 Performed By: #### L 500.2500, L100.0100 ####[facility] [address] [place], [address] Hematocrit (Bld) [Volume fraction] 34.3 % Low 37-47 [facility] Comment on above: Order Comment: 101.1 Performed By: #### L 500.2500, L100.0100 ####[facility] [address] [place], [address] Hemoglobin (Bld) [Mass/Vol] 10.7 g/dL Low 12.0-15.0 [facility] Comment on above: Order Comment: 101.1 Performed By: #### L 500.2500, L100.0100 ####[facility] [address] [place], [address] IG% 0.300 Normal 0.0-0.9 [facility] Comment on above: Order Comment: 101.1 Result Comment: IG% - Immature Granulocytes (promyelocytes, myelocytes andmetamyelocytes) > 1% indicates that a LEFT SHIFT is Present. Performed By: #### L 500.2500, L100.0100 ####[facility] [address] [place], [address] Lymphocytes/100 WBC (Bld) 12.9 % Low 19-41 [facility] Comment on above: Order Comment: 101.1 Performed By: #### L 500.2500, L100.0100 ####[facility] [address] [place], [address] MCH (RBC) [Entitic mass] 30.7 pg Normal 27.0-32.0 [facility] Comment on above: Order Comment: 101.1 Performed By: #### L 500.2500, L100.0100 ####[facility] [address] [place], [address] MCHC (RBC) [Mass/Vol] 31.2 g/dL Low 32-36 [facility] Comment on above: Order Comment: 101.1 Performed By: #### L 500.2500, L100.0100 ####[facility] [address] [place], [address] MCV (RBC) [Entitic vol] 98.6 fL Normal 81-99 [facility] Comment on above: Order Comment: 101.1 Performed By: #### L 500.2500, L100.0100 ####[facility] [address] [place], [address] Monocytes/100 WBC (Bld) 8.0 % Normal 0-10 [facility] Comment on above: Order Comment: 101.1 Performed By: #### L 500.2500, L100.0100 ####[facility] [address] [place], [address] Neutrophils/100 WBC (Bld) 71.1 % High 47-70 [facility] Comment on above: Order Comment: 101.1 Performed By: #### L 500.2500, L100.0100 ####[facility] [address] [place], [address] Nucleated RBC (Bld) [#/Vol] 0 10*3/uL Normal 0-5 [facility] Comment on above: Order Comment: 101.1 Performed By: #### L 500.2500, L100.0100 ####[facility] [address] [place], [address] Platelet mean volume (Bld) [Entitic vol] 9.8 fL Normal 6.2-12.0 [facility] Comment on above: Order Comment: 101.1 Performed By: #### L 500.2500, L100.0100 ####[facility] [address] [place], [address] Platelets (Bld) [#/Vol] 314 10*3/uL Normal 150-450 [facility] Comment on above: Order Comment: 101.1 Performed By: #### L 500.2500, L100.0100 ####[facility] [address] [place], [address] RBC (Bld) [#/Vol] 3.48 10*6/uL Low 4.2-5.4 [facility] Comment on above: Order Comment: 101.1 Performed By: #### L 500.2500, L100.0100 ####[facility] [address] [place], [address] RDW SD 46.8 fl High 35.1-43.9 [facility] Comment on above: Order Comment: 101.1 Performed By: #### L 500.2500, L100.0100 ####[facility] [address] [place], [address] WBC (Bld) [#/Vol] 7.5 10*3/uL Normal 4.4-11.0 [facility] Comment on above: Order Comment: 101.1 Performed By: #### L 500.2500, L100.0100 ####[facility] [address] [place], [address] Basic Metabolic Profile (BMP )on 01-13-2025 BUN/CRE 33.4 RATIO High 10-20 [facility] Comment on above: Order Comment: 101.1 Performed By: #### L 100.0500, L500.2500 ####[facility] [address] [place], [address] Calcium [Mass/Vol] 9.6 mg/dL Normal 7.6-11.0 [facility] Comment on above: Order Comment: 101.1 Performed By: #### L 100.0500, L500.2500 ####[facility] [address] [place], [address] Chloride [Moles/Vol] 106 mmol/L Normal 98-108 [facility] Comment on above: Order Comment: 101.1 Performed By: #### L 100.0500, L500.2500 ####[facility] [address] [place], [address] CO2 [Moles/Vol] 25.6 mmol/L Normal 21.0-32.0 [facility] Comment on above: Order Comment: 101.1 Performed By: #### L 100.0500, L500.2500 ####[facility] [address] [place], [address] Creatinine [Mass/Vol] 0.75 mg/dL Normal 0.70-1.20 [facility] Comment on above: Order Comment: 101.1 Performed By: #### L 100.0500, L500.2500 ####[facility] [address] [place], [address] GAP 11 Normal 5-15 [facility] Comment on above: Order Comment: 101.1 Performed By: #### L 100.0500, L500.2500 ####[facility] [address] [place], [address] GFR/1.73 sq M.predicted among non-blacks MDRD (S/P/Bld) [Vol rate/Area] 77 mL/min/{1.73_m2} Normal >60 [facility] Comment on above: Order Comment: 101.1 Result Comment: mL/m in/1.73m2 CKD-EPI Creatinine Equation (2020) Performed By: #### L 100.0500, L500.2500 ####[facility] [address] [place], [address] Glucose [Mass/Vol] 102 mg/dL High 70-99 [facility] Comment on above: Order Comment: 101.1 Performed By: #### L 100.0500, L500.2500 ####[facility] [address] [place], [address] Potassium [Moles/Vol] 4.4 mmol/L Normal 3.3-5.1 [facility] Comment on above: Order Comment: 101.1 Performed By: #### L 100.0500, L500.2500 ####[facility] [address] [place], [address] Sodium [Moles/Vol] 142 mmol/L Normal 133-145 [facility] Comment on above: Order Comment: 101.1 Performed By: #### L 100.0500, L500.2500 ####[facility] [address] [place], [address] Urea nitrogen [Mass/Vol] 25 mg/dL High 4-19 [facility] Comment on above: Order Comment: 101.1 Performed By: #### L 100.0500, L500.2500 ####[facility] [address] [place], [address] CBC-Complete Blood Cnt No Di ffon 01-13-2025 Erythrocyte distribution width (RBC) [Ratio] 13.8 % Normal 11.6-14.6 [facility] Comment on above: Order Comment: 101.1 Performed By: #### L 100.0500, L500.2500 ####[facility] [address] [place], [address] Hematocrit (Bld) [Volume fraction] 33.1 % Low 37-47 [facility] Comment on above: Order Comment: 101.1 Performed By: #### L 100.0500, L500.2500 ####[facility] [address] [place], [address] Hemoglobin (Bld) [Mass/Vol] 10.2 g/dL Low 12.0-15.0 [facility] Comment on above: Order Comment: 101.1 Performed By: #### L 100.0500, L500.2500 ####[facility] [address] [place], [address] MCH (RBC) [Entitic mass] 30.4 pg Normal 27.0-32.0 [facility] Comment on above: Order Comment: 101.1 Performed By: #### L 100.0500, L500.2500 ####[facility] [address] [place], [address] MCHC (RBC) [Mass/Vol] 30.8 g/dL Low 32-36 [facility] Comment on above: Order Comment: 101.1 Performed By: #### L 100.0500, L500.2500 ####[facility] [address] [place], [address] MCV (RBC) [Entitic vol] 98.8 fL Normal 81-99 [facility] Comment on above: Order Comment: 101.1 Performed By: #### L 100.0500, L500.2500 ####[facility] [address] [place], [address] Platelet mean volume (Bld) [Entitic vol] 9.6 fL Normal 6.2-12.0 [facility] Comment on above: Order Comment: 101.1 Performed By: #### L 100.0500, L500.2500 ####[facility] [address] [place], [address] Platelets (Bld) [#/Vol] 343 10*3/uL Normal 150-450 [facility] Comment on above: Order Comment: 101.1 Performed By: #### L 100.0500, L500.2500 ####[facility] [address] [place], [address] RBC (Bld) [#/Vol] 3.35 10*6/uL Low 4.2-5.4 [facility] Comment on above: Order Comment: 101.1 Performed By: #### L 100.0500, L500.2500 ####[facility] [address] [place], [address] RDW SD 49.9 fl High 35.1-43.9 [facility] Comment on above: Order Comment: 101.1 Performed By: #### L 100.0500, L500.2500 ####[facility] [address] [place], [address] WBC (Bld) [#/Vol] 6.5 10*3/uL Normal 4.4-11.0 [facility] Comment on above: Order Comment: 101.1 Performed By: #### L 100.0500, L500.2500 ####[facility] [address] [place], [address] Basic Metabolic Profile (BMP )on 12-09-2024 BUN/CRE 35.0 RATIO High 10-20 [facility] Comment on above: Order Comment: 101.1 Performed By: #### L 100.0500, L500.2500 ####[facility] [address] [place], [address] Calcium [Mass/Vol] 9.1 mg/dL Normal 7.6-11.0 [facility] Comment on above: Order Comment: 101.1 Performed By: #### L 100.0500, L500.2500 ####[facility] [address] [place], [address] Chloride [Moles/Vol] 105 mmol/L Normal 98-108 [facility] Comment on above: Order Comment: 101.1 Performed By: #### L 100.0500, L500.2500 ####[facility] [address] [place], [address] CO2 [Moles/Vol] 25.3 mmol/L Normal 21.0-32.0 [facility] Comment on above: Order Comment: 101.1 Performed By: #### L 100.0500, L500.2500 ####[facility] [address] [place], [address] Creatinine [Mass/Vol] 0.76 mg/dL Normal 0.70-1.20 [facility] Comment on above: Order Comment: 101.1 Performed By: #### L 100.0500, L500.2500 ####[facility] [address] [place], [address] GAP 8 Normal 5-15 [facility] Comment on above: Order Comment: 101.1 Performed By: #### L 100.0500, L500.2500 ####[facility] [address] [place], [address] GFR/1.73 sq M.predicted among non-blacks MDRD (S/P/Bld) [Vol rate/Area] 76 mL/min/{1.73_m2} Normal >60 [facility] Comment on above: Order Comment: 101.1 Result Comment: mL/m in/1.73m2 CKD-EPI Creatinine Equation (2020) Performed By: #### L 100.0500, L500.2500 ####[facility] [address] [place], [address] Glucose [Mass/Vol] 94 mg/dL Normal 70-99 [facility] Comment on above: Order Comment: 101.1 Performed By: #### L 100.0500, L500.2500 ####[facility] [address] [place], [address] Potassium [Moles/Vol] 4.3 mmol/L Normal 3.3-5.1 [facility] Comment on above: Order Comment: 101.1 Performed By: #### L 100.0500, L500.2500 ####[facility] [address] [place], [address] Sodium [Moles/Vol] 138 mmol/L Normal 133-145 [facility] Comment on above: Order Comment: 101.1 Performed By: #### L 100.0500, L500.2500 ####[facility] [address] [place], [address] Urea nitrogen [Mass/Vol] 27 mg/dL High 4-19 [facility] Comment on above: Order Comment: 101.1 Performed By: #### L 100.0500, L500.2500 ####[facility] [address] [place], [address] CBC-Complete Blood Cnt No Di ffon 12-09-2024 Erythrocyte distribution width (RBC) [Ratio] 13.3 % Normal 11.6-14.6 [facility] Comment on above: Order Comment: 101.1 Performed By: #### L 100.0500, L500.2500 ####[facility] [address] [place], [address] Hematocrit (Bld) [Volume fraction] 32.4 % Low 37-47 [facility] Comment on above: Order Comment: 101.1 Performed By: #### L 100.0500, L500.2500 ####[facility] [address] [place], [address] Hemoglobin (Bld) [Mass/Vol] 10.4 g/dL Low 12.0-15.0 [facility] Comment on above: Order Comment: 101.1 Performed By: #### L 100.0500, L500.2500 ####[facility] [address] [place], [address] MCH (RBC) [Entitic mass] 31.0 pg Normal 27.0-32.0 [facility] Comment on above: Order Comment: 101.1 Performed By: #### L 100.0500, L500.2500 ####[facility] [address] [place], [address] MCHC (RBC) [Mass/Vol] 32.1 g/dL Normal 32-36 [facility] Comment on above: Order Comment: 101.1 Performed By: #### L 100.0500, L500.2500 ####[facility] [address] [place], [address] MCV (RBC) [Entitic vol] 96.7 fL Normal 81-99 [facility] Comment on above: Order Comment: 101.1 Performed By: #### L 100.0500, L500.2500 ####[facility] [address] [place], [address] Platelet mean volume (Bld) [Entitic vol] 9.7 fL Normal 6.2-12.0 [facility] Comment on above: Order Comment: 101.1 Performed By: #### L 100.0500, L500.2500 ####[facility] [address] [place], [address] Platelets (Bld) [#/Vol] 302 10*3/uL Normal 150-450 [facility] Comment on above: Order Comment: 101.1 Performed By: #### L 100.0500, L500.2500 ####[facility] [address] [place], [address] RBC (Bld) [#/Vol] 3.35 10*6/uL Low 4.2-5.4 [facility] Comment on above: Order Comment: 101.1 Performed By: #### L 100.0500, L500.2500 ####[facility] [address] [place], [address] RDW SD 47.4 fl High 35.1-43.9 [facility] Comment on above: Order Comment: 101.1 Performed By: #### L 100.0500, L500.2500 ####[facility] [address] [place], [address] WBC (Bld) [#/Vol] 7.1 10*3/uL Normal 4.4-11.0 [facility] Comment on above: Order Comment: 101.1 Performed By: #### L 100.0500, L500.2500 ####[facility] [address] [place], [address] Basic Metabolic Profile (BMP )on 11-30-2024 BUN/CRE 31.0 RATIO High 10-20 [facility] Comment on above: Order Comment: 108.1 Performed By: #### L 500.2500, L100.0100, L501.5200 ####[facility] [address] [place], [address] Calcium [Mass/Vol] 9.7 mg/dL Normal 7.6-11.0 [facility] Comment on above: Order Comment: 108.1 Performed By: #### L 500.2500, L100.0100, L501.5200 ####[facility] [address] [place], [address] Chloride [Moles/Vol] 104 mmol/L Normal 98-108 [facility] Comment on above: Order Comment: 108.1 Performed By: #### L 500.2500, L100.0100, L501.5200 ####[facility] [address] [place], [address] CO2 [Moles/Vol] 27.6 mmol/L Normal 21.0-32.0 [facility] Comment on above: Order Comment: 108.1 Performed By: #### L 500.2500, L100.0100, L501.5200 ####[facility] [address] [place], [address] Creatinine [Mass/Vol] 0.76 mg/dL Normal 0.70-1.20 [facility] Comment on above: Order Comment: 108.1 Performed By: #### L 500.2500, L100.0100, L501.5200 ####[facility] [address] [place], [address] GAP 10 Normal 5-15 [facility] Comment on above: Order Comment: 108.1 Performed By: #### L 500.2500, L100.0100, L501.5200 ####[facility] [address] [place], [address] GFR/1.73 sq M.predicted among non-blacks MDRD (S/P/Bld) [Vol rate/Area] 76 mL/min/{1.73_m2} Normal >60 [facility] Comment on above: Order Comment: 108.1 Result Comment: mL/m in/1.73m2 CKD-EPI Creatinine Equation (2020) Performed By: #### L 500.2500, L100.0100, L501.5200 ####[facility] [address] [place], [address] Glucose [Mass/Vol] 102 mg/dL High 70-99 [facility] Comment on above: Order Comment: 108.1 Performed By: #### L 500.2500, L100.0100, L501.5200 ####[facility] [address] [place], [address] Potassium [Moles/Vol] 4.3 mmol/L Normal 3.3-5.1 [facility] Comment on above: Order Comment: 108.1 Performed By: #### L 500.2500, L100.0100, L501.5200 ####[facility] [address] [place], [address] Sodium [Moles/Vol] 141 mmol/L Normal 133-145 [facility] Comment on above: Order Comment: 108.1 Performed By: #### L 500.2500, L100.0100, L501.5200 ####[facility] [address] [place], [address] Urea nitrogen [Mass/Vol] 24 mg/dL High 4-19 [facility] Comment on above: Order Comment: 108.1 Performed By: #### L 500.2500, L100.0100, L501.5200 ####[facility] [address] [place], [address] CBC W/Diff, Automatedon 08- Absolute Lymph 1.86 X10 3/uL Normal 0.83-4.51 [facility] Comment on above: Order Comment: 108.1 Performed By: #### L 500.2500, L100.0100, L501.5200 ####[facility] [address] [place], [address] Absolute Neut 3.3 X10 3/uL Normal 2.0-7.7 [facility] Comment on above: Order Comment: 108.1 Performed By: #### L 500.2500, L100.0100, L501.5200 ####[facility] [address] [place], [address] Basophils/100 WBC (Bld) 1.7 % High 0-1 [facility] Comment on above: Order Comment: 108.1 Performed By: #### L 500.2500, L100.0100, L501.5200 ####[facility] [address] [place], [address] Eosinophils/100 WBC (Bld) 10.4 % High 0-5 [facility] Comment on above: Order Comment: 108.1 Performed By: #### L 500.2500, L100.0100, L501.5200 ####[facility] [address] [place], [address] Erythrocyte distribution width (RBC) [Ratio] 13.2 % Normal 11.6-14.6 [facility] Comment on above: Order Comment: 108.1 Performed By: #### L 500.2500, L100.0100, L501.5200 ####[facility] [address] [place], [address] Hematocrit (Bld) [Volume fraction] 36.3 % Low 37-47 [facility] Comment on above: Order Comment: 108.1 Performed By: #### L 500.2500, L100.0100, L501.5200 ####[facility] [address] [place], [address] Hemoglobin (Bld) [Mass/Vol] 11.6 g/dL Low 12.0-15.0 [facility] Comment on above: Order Comment: 108.1 Performed By: #### L 500.2500, L100.0100, L501.5200 ####[facility] [address] [place], [address] IG% 0.600 Normal 0.0-0.9 [facility] Comment on above: Order Comment: 108.1 Result Comment: IG% - Immature Granulocytes (promyelocytes, myelocytes andmetamyelocytes) > 1% indicates that a LEFT SHIFT is Present. Performed By: #### L 500.2500, L100.0100, L501.5200 ####[facility] [address] [place], [address] Lymphocytes/100 WBC (Bld) 28.1 % Normal 19-41 [facility] Comment on above: Order Comment: 108.1 Performed By: #### L 500.2500, L100.0100, L501.5200 ####[facility] [address] [place], [address] MCH (RBC) [Entitic mass] 31.4 pg Normal 27.0-32.0 [facility] Comment on above: Order Comment: 108.1 Performed By: #### L 500.2500, L100.0100, L501.5200 ####[facility] [address] [place], [address] MCHC (RBC) [Mass/Vol] 32.0 g/dL Normal 32-36 [facility] Comment on above: Order Comment: 108.1 Performed By: #### L 500.2500, L100.0100, L501.5200 ####[facility] [address] [place], [address] MCV (RBC) [Entitic vol] 98.1 fL Normal 81-99 [facility] Comment on above: Order Comment: 108.1 Performed By: #### L 500.2500, L100.0100, L501.5200 ####[facility] [address] [place], [address] Monocytes/100 WBC (Bld) 9.0 % Normal 0-10 [facility] Comment on above: Order Comment: 108.1 Performed By: #### L 500.2500, L100.0100, L501.5200 ####[facility] [address] [place], [address] Neutrophils/100 WBC (Bld) 50.2 % Normal 47-70 [facility] Comment on above: Order Comment: 108.1 Performed By: #### L 500.2500, L100.0100, L501.5200 ####[facility] [address] [place], [address] Nucleated RBC (Bld) [#/Vol] 0 10*3/uL Normal 0-5 [facility] Comment on above: Order Comment: 108.1 Performed By: #### L 500.2500, L100.0100, L501.5200 ####[facility] [address] [place], [address] Platelet mean volume (Bld) [Entitic vol] 9.7 fL Normal 6.2-12.0 [facility] Comment on above: Order Comment: 108.1 Performed By: #### L 500.2500, L100.0100, L501.5200 ####[facility] [address] [place], [address] Platelets (Bld) [#/Vol] 349 10*3/uL Normal 150-450 [facility] Comment on above: Order Comment: 108.1 Performed By: #### L 500.2500, L100.0100, L501.5200 ####[facility] [address] [place], [address] RBC (Bld) [#/Vol] 3.70 10*6/uL Low 4.2-5.4 [facility] Comment on above: Order Comment: 108.1 Performed By: #### L 500.2500, L100.0100, L501.5200 ####[facility] [address] [place], [address] RDW SD 47.2 fl High 35.1-43.9 [facility] Comment on above: Order Comment: 108.1 Performed By: #### L 500.2500, L100.0100, L501.5200 ####[facility] [address] [place], [address] WBC (Bld) [#/Vol] 6.6 10*3/uL Normal 4.4-11.0 [facility] Comment on above: Order Comment: 108.1 Performed By: #### L 500.2500, L100.0100, L501.5200 ####[facility] [address] [place], [address] Magnesiumon 11-30-2024 Magnesium [Mass/Vol] 2.4 mg/dL High 1.5-2.2 [facility] Comment on above: Order Comment: 108.1 Performed By: #### L 500.2500, L100.0100, L501.5200 ####[facility] [address] [place], [address] Basic Metabolic Profile (BMP )on 11-23-2024 BUN/CRE 32.0 RATIO High 10-20 [facility] Comment on above: Order Comment: 108MA GA Performed By: #### L 506.1001, L500.2500, L100.0100 ####[facility] [address] [place], [address] Calcium [Mass/Vol] 9.6 mg/dL Normal 7.6-11.0 [facility] Comment on above: Order Comment: 108MA GA Performed By: #### L 506.1001, L500.2500, L100.0100 ####[facility] [address] [place], [address] Chloride [Moles/Vol] 102 mmol/L Normal 98-108 [facility] Comment on above: Order Comment: 108MA GA Performed By: #### L 506.1001, L500.2500, L100.0100 ####[facility] [address] [place], [address] CO2 [Moles/Vol] 25.8 mmol/L Normal 21.0-32.0 [facility] Comment on above: Order Comment: 108MA GA Performed By: #### L 506.1001, L500.2500, L100.0100 ####[facility] [address] [place], [address] Creatinine [Mass/Vol] 1.00 mg/dL Normal 0.70-1.20 [facility] Comment on above: Order Comment: 108MA GA Performed By: #### L 506.1001, L500.2500, L100.0100 ####[facility] [address] [place], [address] GAP 9 Normal 5-15 [facility] Comment on above: Order Comment: 108MA GA Performed By: #### L 506.1001, L500.2500, L100.0100 ####[facility] [address] [place], [address] GFR/1.73 sq M.predicted among non-blacks MDRD (S/P/Bld) [Vol rate/Area] 55 mL/min/{1.73_m2} Low >60 [facility] Comment on above: Order Comment: 108MA GA Result Comment: mL/m in/1.73m2 CKD-EPI Creatinine Equation (2020) Performed By: #### L 506.1001, L500.2500, L100.0100 ####[facility] [address] [place], [address] Glucose [Mass/Vol] 118 mg/dL High 70-99 [facility] Comment on above: Order Comment: 108MA GA Performed By: #### L 506.1001, L500.2500, L100.0100 ####[facility] [address] [place], [address] Potassium [Moles/Vol] 4.4 mmol/L Normal 3.3-5.1 [facility] Comment on above: Order Comment: 108MA GA Performed By: #### L 506.1001, L500.2500, L100.0100 ####[facility] [address] [place], [address] Sodium [Moles/Vol] 137 mmol/L Normal 133-145 [facility] Comment on above: Order Comment: 108MA GA Performed By: #### L 506.1001, L500.2500, L100.0100 ####[facility] [address] [place], [address] Urea nitrogen [Mass/Vol] 32 mg/dL High 4-19 [facility] Comment on above: Order Comment: 108MA GA Performed By: #### L 506.1001, L500.2500, L100.0100 ####[facility] [address] [place], [address] CBC W/Diff, Automatedon 11-12 Absolute Lymph 0.99 X10 3/uL Normal 0.83-4.51 [facility] Comment on above: Order Comment: 108 Performed By: #### L 506.1001, L500.2500, L100.0100 ####[facility] [address] [place], [address] Absolute Neut 8.9 X10 3/uL High 2.0-7.7 [facility] Comment on above: Order Comment: 108 Performed By: #### L 506.1001, L500.2500, L100.0100 ####[facility] [address] [place], [address] Basophils/100 WBC (Bld) 1.0 % Normal 0-1 [facility] Comment on above: Order Comment: 108 Performed By: #### L 506.1001, L500.2500, L100.0100 ####[facility] [address] [place], [address] Eosinophils/100 WBC (Bld) 3.5 % Normal 0-5 [facility] Comment on above: Order Comment: 108 Performed By: #### L 506.1001, L500.2500, L100.0100 ####[facility] [address] [place], [address] Erythrocyte distribution width (RBC) [Ratio] 13.1 % Normal 11.6-14.6 [facility] Comment on above: Order Comment: 108 Performed By: #### L 506.1001, L500.2500, L100.0100 ####[facility] [address] [place], [address] Hematocrit (Bld) [Volume fraction] 35.7 % Low 37-47 [facility] Comment on above: Order Comment: 108 Performed By: #### L 506.1001, L500.2500, L100.0100 ####[facility] [address] [place], [address] Hemoglobin (Bld) [Mass/Vol] 11.5 g/dL Low 12.0-15.0 [facility] Comment on above: Order Comment: 108 Performed By: #### L 506.1001, L500.2500, L100.0100 ####[facility] [address] [place], [address] IG% 0.300 Normal 0.0-0.9 [facility] Comment on above: Order Comment: 108 Result Comment: IG% - Immature Granulocytes (promyelocytes, myelocytes andmetamyelocytes) > 1% indicates that a LEFT SHIFT is Present. Performed By: #### L 506.1001, L500.2500, L100.0100 ####[facility] [address] [place], [address] Lymphocytes/100 WBC (Bld) 9.0 % Low 19-41 [facility] Comment on above: Order Comment: 108 Performed By: #### L 506.1001, L500.2500, L100.0100 ####[facility] [address] [place], [address] MCH (RBC) [Entitic mass] 31.4 pg Normal 27.0-32.0 [facility] Comment on above: Order Comment: 108 Performed By: #### L 506.1001, L500.2500, L100.0100 ####[facility] [address] [place], [address] MCHC (RBC) [Mass/Vol] 32.2 g/dL Normal 32-36 [facility] Comment on above: Order Comment: 108 Performed By: #### L 506.1001, L500.2500, L100.0100 ####[facility] [address] [place], [address] MCV (RBC) [Entitic vol] 97.5 fL Normal 81-99 [facility] Comment on above: Order Comment: 108 Performed By: #### L 506.1001, L500.2500, L100.0100 ####[facility] [address] [place], [address] Monocytes/100 WBC (Bld) 5.5 % Normal 0-10 [facility] Comment on above: Order Comment: 108 Performed By: #### L 506.1001, L500.2500, L100.0100 ####[facility] [address] [place], [address] Neutrophils/100 WBC (Bld) 80.7 % High 47-70 [facility] Comment on above: Order Comment: 108 Performed By: #### L 506.1001, L500.2500, L100.0100 ####[facility] [address] [place], [address] Nucleated RBC (Bld) [#/Vol] 0 10*3/uL Normal 0-5 [facility] Comment on above: Order Comment: 108 Performed By: #### L 506.1001, L500.2500, L100.0100 ####[facility] [address] [place], [address] Platelet mean volume (Bld) [Entitic vol] 9.9 fL Normal 6.2-12.0 [facility] Comment on above: Order Comment: 108 Performed By: #### L 506.1001, L500.2500, L100.0100 ####[facility] [address] [place], [address] Platelets (Bld) [#/Vol] 297 10*3/uL Normal 150-450 [facility] Comment on above: Order Comment: 108 Performed By: #### L 506.1001, L500.2500, L100.0100 ####[facility] [address] [place], [address] RBC (Bld) [#/Vol] 3.66 10*6/uL Low 4.2-5.4 [facility] Comment on above: Order Comment: 108 Performed By: #### L 506.1001, L500.2500, L100.0100 ####[facility] [address] [place], [address] RDW SD 46.8 fl High 35.1-43.9 [facility] Comment on above: Order Comment: 108 Performed By: #### L 506.1001, L500.2500, L100.0100 ####[facility] [address] [place], [place], [address]) WBC (Bld) [#/Vol] 11.0 10*3/uL Normal 4.4-11.0 [facility] Comment on above: Order Comment: 108 Performed By: #### L 506.1001, L500.2500, L100.0100 ####[facility] [address] [place], [address] [facility] BEHZAD HAY Brittney ([id number]) 1940 F Date Time Provider Department 11/23/24 [facility]AS[facility] During your visit today, we recorded the following information about you: Tasha Deutsch APRN.AVIATION [employer] 11/23/2024 5:28 PM Signed Patient was admitted to [facility] on October 18, 2024 and discharged on November 16, 2024 for basal ganglia hemorrhage Patient is an 84-year-old female with a history of atrial fibrillation on Eliquis last dose October 18 in the morning, hypertension, hyperlipidemia who presented from [facility] with an L. thalamic intracranial hemorrhage. LKW 2099October 17. Patient awoke at 6 AM October 18 with some right sided weakness was found in her home by her health aide at 9 AM slumped against the wall with right-sided weakness, right facial droop, dysarthria. NIHSS on arrival [facility] ED 16. [facility] with [facility] thalamic IPH. CTA at [facility] with no acute abnormality. Repeat CTh at [facility] with redemonstration of the left thalamic intracranial hemorrhage and remote left MCA territory infarct. Blood pressure on arrival 146/76. CTh: Acute left thalamic hemorrhage with mild surrounding vasogenic edema. 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 CTA brain/neck no acute findings 6-hour CTh stable exam. Acute left thalamic hemorrhage with mild surrounding vasogenic edema. Left MCA territory infarct 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 MRI of the brain left thalamic hemorrhage noted on October 18 CT head. Punctate right occipital and left cerebellar acute infarct. Remote left MCA territory infarct. CTh follow-up: Stable left thalamic parenchymal hematoma with mildly increased edema. No significant mass effect Transthoracic echocardiogram ejection fraction 61% LDL 73, hemoglobin A1c 5.4%. Hospital complicated by dysphagia, urinary tract infection, agitation. She was treated with amoxicillin for urinary tract infection and agitation improved. She had a PEG tube placed by GI on November 12, 2024 and has been tolerating tube feeds well. Evaluated by OT, PT, speech therapy. She is being discharged to a nursing home facility in stable condition. Discharge plan has been explained to the patient and her family Diagnosis: Acute left thalamic intraparenchymal hemorrhage. 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 A-fib for ischemic strokes. Management at discharge: Aspirin 81 mg daily for secondary stroke reduction started on October 25, 2024. No aspirin indicated after starting on anticoagulation. Referral to cardiology for watchman consideration. If unable to get a Watchman resume home Eliquis in 1 month poststroke November 18 and then stop aspirin. Atorvastatin 40 mg daily Doxazosin for urinary retention as well as hypertension, resume home lisinopril when indicated Continue metoprolol 25 mg twice daily for rate control Tube feeds via PEG tube OT, PT, and speech. Follow-up with neurovascular clinic after discharge Follow-up with PCP in 2 weeks Patient is alert, expressive aphasia, garbled incoherent with some intermittently clear words, follows simple commands, right hemiparesis. November 15: WBC 5.87, hemoglobin 11.5, hematocrit 37.2, platelet count 325 Sodium 140, potassium 4.7, BUN 26, creatinine 0.65, glucose 114 ALT 11, AST 14, alkaline phosphatase 76 echocardiogram reveals: Left ventricular chamber size is normal. Normal wall thickness. Normal global systolic function. Regional wall motion is normal. Ejection fraction is 61%. Diastolic function could not be determined. Right ventricular size is normal. Systolic function normal. Estimated right ventricular systolic pressure 28 mmHg. Fractional area change = 49.7% Left atrial chamber size moderately enlarged Right atrial chamber size is moderately to severely enlarged The inferior vena cava is normal in size. Inferior vena cava structure is normal Mitral valve nonspecific leaflet thickening. Leaflet mobility is normal. Mild annular calcification. Trace regurgitation. No valve stenosis Tricuspid valve normal leaflets. Leaflet mobility is normal. Mild regurgitation. No stenosis. No evidence of pulmonary hypertension Aortic valve trileaflet. Mild leaflet calcification. Cusp sclerosis visualized. Leaflet mobility is normal. No regurgitation. No stenosis. Allergies As of Date: 11/23/2024 Noted Allergy Reaction ADHESIVE TAPE (ROSINS) 08/27/2011 2 - Rash BACTRIM (SULFAMETHOXAZOLE-TRIMETH*0 09/25/2018 2 - Rash MACROBID (NITROFURANTOIN MONOHYD/*09/25/2018 2 - Rash AZDSPEM-XEX-LGF REDUCTASE INHIBIT*10/06/2014 5 - Intolerance Comments: severe leg pain Date Reviewed: 10/13/2024 Reviewed by: Yola Nj COTA/Filippo - Fully Assessed Primary Visit Diagnosis:Acute CVA (cerebrovascular accident) (HCC) [I63.9] Order(s):doxazosin (CARDURA) 4 mg tablet1 tablet by PEG route once d (more content not included)... Normal [facility] Vitamin D,25 Hydroxyon 11-23 Vitamin D 25-OH 33.4 ng/mL Normal 30-100 [facility] Comment on above: Order Comment: 108 Result Comment: Tati min D StatusDeficiency: <20 ng/mL (50nmol/L)Insufficiency: 20-30 ng/mL (50-75 nmol/L)Sufficiency: 30-100 ng/mL (75-250 nmol/L)Toxicity: >100 ng/mL (>250 nmol/L) Performed By: #### L 506.1001, L500.2500, L100.0100 ####[facility] [address] [place], [address] Basic Metabolic Profile (BMP )on 11-18-2024 BUN/CRE 38.1 RATIO High 10-20 [facility] Comment on above: Order Comment: 108 Performed By: #### L 100.0500, L500.2500 ####[facility] [address] [place], [address] Calcium [Mass/Vol] 10.0 mg/dL Normal 7.6-11.0 [facility] Comment on above: Order Comment: 108 Performed By: #### L 100.0500, L500.2500 ####[facility] [address] [place], [address] Chloride [Moles/Vol] 103 mmol/L Normal 98-108 [facility] Comment on above: Order Comment: 108 Performed By: #### L 100.0500, L500.2500 ####[facility] [address] [place], [address] CO2 [Moles/Vol] 26.6 mmol/L Normal 21.0-32.0 [facility] Comment on above: Order Comment: 108 Performed By: #### L 100.0500, L500.2500 ####[facility] [address] [place], [address] Creatinine [Mass/Vol] 0.75 mg/dL Normal 0.70-1.20 [facility] Comment on above: Order Comment: 108 Performed By: #### L 100.0500, L500.2500 ####[facility] [address] [place], [address] GAP 10 Normal 5-15 [facility] Comment on above: Order Comment: 108 Performed By: #### L 100.0500, L500.2500 ####[facility] [address] [place], [address] GFR/1.73 sq M.predicted among non-blacks MDRD (S/P/Bld) [Vol rate/Area] 77 mL/min/{1.73_m2} Normal >60 [facility] Comment on above: Order Comment: 108 Result Comment: mL/m in/1.73m2 CKD-EPI Creatinine Equation (2020) Performed By: #### L 100.0500, L500.2500 ####[facility] [address] [place], [address] Glucose [Mass/Vol] 132 mg/dL High 70-99 [facility] Comment on above: Order Comment: 108 Performed By: #### L 100.0500, L500.2500 ####[facility] [address] [place], [address] Potassium [Moles/Vol] 4.4 mmol/L Normal 3.3-5.1 [facility] Comment on above: Order Comment: 108 Performed By: #### L 100.0500, L500.2500 ####[facility] [address] [place], [address] Sodium [Moles/Vol] 139 mmol/L Normal 133-145 [facility] Comment on above: Order Comment: 108 Performed By: #### L 100.0500, L500.2500 ####[facility] [address] [place], [address] Urea nitrogen [Mass/Vol] 29 mg/dL High 4-19 [facility] Comment on above: Order Comment: 108 Performed By: #### L 100.0500, L500.2500 ####[facility] [address] [place], [address] CBC-Complete Blood Cnt No Di ffon 11-18-2024 Erythrocyte distribution width (RBC) [Ratio] 13.1 % Normal 11.6-14.6 [facility] Comment on above: Order Comment: 108 Performed By: #### L 100.0500, L500.2500 ####[facility] [address] [place], [address] Hematocrit (Bld) [Volume fraction] 37.5 % Normal 37-47 [facility] Comment on above: Order Comment: 108 Performed By: #### L 100.0500, L500.2500 ####[facility] [address] [place], [address] Hemoglobin (Bld) [Mass/Vol] 11.9 g/dL Low 12.0-15.0 [facility] Comment on above: Order Comment: 108 Performed By: #### L 100.0500, L500.2500 ####[facility] [address] [place], [address] MCH (RBC) [Entitic mass] 31.1 pg Normal 27.0-32.0 [facility] Comment on above: Order Comment: 108 Performed By: #### L 100.0500, L500.2500 ####[facility] [address] [place], [address] MCHC (RBC) [Mass/Vol] 31.7 g/dL Low 32-36 [facility] Comment on above: Order Comment: 108 Performed By: #### L 100.0500, L500.2500 ####[facility] [address] [place], [address] MCV (RBC) [Entitic vol] 97.9 fL Normal 81-99 [facility] Comment on above: Order Comment: 108 Performed By: #### L 100.0500, L500.2500 ####[facility] [address] [place], [address] Platelet mean volume (Bld) [Entitic vol] 9.7 fL Normal 6.2-12.0 [facility] Comment on above: Order Comment: 108 Performed By: #### L 100.0500, L500.2500 ####[facility] [address] [place], [address] Platelets (Bld) [#/Vol] 361 10*3/uL Normal 150-450 [facility] Comment on above: Order Comment: 108 Performed By: #### L 100.0500, L500.2500 ####[facility] [address] [place], [address] RBC (Bld) [#/Vol] 3.83 10*6/uL Low 4.2-5.4 [facility] Comment on above: Order Comment: 108 Performed By: #### L 100.0500, L500.2500 ####[facility] [address] [place], [address] RDW SD 46.5 fl High 35.1-43.9 [facility] Comment on above: Order Comment: 108 Performed By: #### L 100.0500, L500.2500 ####[facility] [address] [place], [address] WBC (Bld) [#/Vol] 7.9 10*3/uL Normal 4.4-11.0 [facility] Comment on above: Order Comment: 108 Performed By: #### L 100.0500, L500.2500 ####[facility] [address] [place], [address] CBC AND ELECTRONIC DIFFon Basophils (Bld) [#/Vol] 0.12 10*3/uL 0.00 - 0.15 K/uL [facility] Basophils/100 WBC (Bld) 2 % [facility] Differential cell count method Nom (Bld) Electronic Differential [facility] Eosinophils (Bld) [#/Vol] 0.59 10*3/uL High 0.00 - 0.42 K/uL [facility] Eosinophils/100 WBC (Bld) 10.1 % [facility] Erythrocyte distribution width (RBC) [Ratio] 13 % 10.8 - 14.9 % [facility] Hematocrit (Bld) [Volume fraction] 37.2 % 34.9 - 44.3 % [facility] Hemoglobin (Bld) [Mass/Vol] 11.5 g/dL 11.4 - 15.2 g/dL [facility] Immature granulocytes (Bld) [#/Vol] K/uL NINF - 0.08 K/uL [facility] Immature granulocytes/100 WBC (Bld) 0.3 % [facility] Interpretation and review of laboratory results Abnormal [facility] Lymphocytes (Bld) [#/Vol] 1.4 10*3/uL 1.16 - 3.51 K/uL [facility] Lymphocytes/100 WBC (Bld) 23.9 % [facility] MCH (RBC) [Entitic mass] 30.8 pg 25.9 - 33.9 pg [facility] MCHC (RBC) [Mass/Vol] 30.9 g/dL Low 31.4 - 35.9 g/dL [facility] MCV (RBC) [Entitic vol] 99.7 fL High 79.6 - 97.7 fL [facility] Monocytes (Bld) [#/Vol] 0.43 10*3/uL 0.22 - 0.87 K/uL [facility] Monocytes/100 WBC (Bld) 7.3 % [facility] Neutrophils (Bld) [#/Vol] 3.31 10*3/uL 1.64 - 7.28 K/uL [facility] Nucleated RBC/100 WBC (Bld) [Ratio] 0 % [facility] Platelet mean volume (Bld) [Entitic vol] 9.3 fL 8.5 - 12.2 fL [facility] Platelets (Bld) [#/Vol] 325 10*3/uL 150 - 393 K/uL [facility] RBC (Bld) [#/Vol] 3.73 10*6/uL Low [facility] Segmented neutrophils/100 WBC (Bld) 56.4 % [facility] WBC (Bld) [#/Vol] 5.87 10*3/uL 3.99 - 11.19 K/uL [facility] Basophils (Bld) [#/Vol] 0.12 10*3/uL Normal 0.00-0.15 [facility] Comment on above: Performed By: #### U [id number] #### [facility] (DEFAULT) [address] [place] [address] Basophils/100 WBC (Bld) 2.0 % Normal [facility] Comment on above: Performed By: #### U [id number] #### [facility] (DEFAULT) [address] [place] [address] DIFF STATUS Electronic Differential Normal [facility] Comment on above: Performed By: #### U [id number] #### [facility] (DEFAULT) [address] [address] Eosinophils (Bld) [#/Vol] 0.59 10*3/uL High 0.00-0.42 [facility] Comment on above: Performed By: #### U [id number] #### [facility] (DEFAULT) [address] [address] Eosinophils/100 WBC (Bld) 10.1 % Normal [facility] Comment on above: Performed By: #### U [id number] #### [facility] (DEFAULT) [address] [address] Hematocrit (Bld) [Volume fraction] 37.2 % Normal 34.9-44.3 [facility] Comment on above: Performed By: #### U [id number] #### [facility] (DEFAULT) [address] [address] Hemoglobin (Bld) [Mass/Vol] 11.5 g/dL Normal 11.4-15.2 [facility] Comment on above: Performed By: #### U [id number] #### [facility] (DEFAULT) [address] [address] Immature Grans % 0.3 % Normal [facility] Comment on above: Performed By: #### U [id number] #### [facility] (DEFAULT) [address] [place] [address] Immature Grans Absolute < Normal <=0.08 [facility] Comment on above: Performed By: #### U [id number] #### [facility] (DEFAULT) [address] [address] Lymphocytes (Bld) [#/Vol] 1.40 10*3/uL Normal 1.16-3.51 [facility] Comment on above: Performed By: #### U [id number] #### [facility] (DEFAULT) [address] [address] Lymphocytes/100 WBC (Bld) 23.9 % Normal [facility] Comment on above: Performed By: #### U [id number] #### [facility] (DEFAULT) [address] [address] MCV (RBC) [Entitic vol] 99.7 fL High 79.6-97.7 [facility] Comment on above: Performed By: #### U [id number] #### [facility] (DEFAULT) [address] [address] Mean Cell Hgb 30.8 pg Normal 25.9-33.9 [facility] Comment on above: Performed By: #### U [id number] #### [facility] (DEFAULT) [address] [address] Mean Cell Hgb Conc 30.9 g/dL Low 31.4-35.9 [facility] Comment on above: Performed By: #### U [id number] #### [facility] (DEFAULT) [address] [address] Monocytes (Bld) [#/Vol] 0.43 10*3/uL Normal 0.22-0.87 [facility] Comment on above: Performed By: #### U [id number] #### [facility] (DEFAULT) [address] [address] Monocytes/100 WBC (Bld) 7.3 % Normal [facility] Comment on above: Performed By: #### U [id number] #### U [facility] (DEFAULT) [address] [place] [address] Nucleated RBC 0.0 /100 WBC Normal <=0.2 [facility] Comment on above: Performed By: #### U [id number] #### U [facility] (DEFAULT) [address] [place] [address] Platelet mean volume (Bld) [Entitic vol] 9.3 fL Normal 8.5-12.2 [facility] Comment on above: Performed By: #### U [id number] #### U [facility] (DEFAULT) [address] [place] [address] Platelets (Bld) [#/Vol] 325 10*3/uL Normal 150-393 [facility] Comment on above: Performed By: #### U [id number] #### [facility] (DEFAULT) [address] [place] [address] RBC (Bld) [#/Vol] 3.73 10*6/uL Low 3.91-5.04 [facility] Comment on above: Performed By: #### U [id number] #### U [facility] (DEFAULT) [address] [place] [address] RBC Distribution 13.0 % Normal 10.8-14.9 [facility] Comment on above: Performed By: #### U [id number] #### U [facility] (DEFAULT) [address] [place] [address] Segs + Bands Auto 56.4 % Normal [facility] Comment on above: Performed By: #### U [id number] #### [facility] (DEFAULT) [address] [place] [address] Segs + Bands,Absolute Auto 3.31 K/uL Normal 1.64-7.28 [facility] Comment on above: Performed By: #### U [id number] #### [facility] (DEFAULT) [address] [place] [address] WBC (Bld) [#/Vol] 5.87 10*3/uL Normal 3.99-11.19 [facility] Comment on above: Performed By: #### U [id number] #### [facility] (DEFAULT) [address] [place] [address] CHEM 7 (LYTES,BUN,CREA,GLUC) on 11-15-2024 Anion gap [Moles/Vol] 11 mmol/L 7 - 17 mmol/L [facility] Chloride [Moles/Vol] 104 mmol/L 98 - 10 8 [facility] CO2 [Moles/Vol] 30 mmol/L 21 - 31 mmol/L [facility] Creatinine [Mass/Vol] 0.65 mg/dL 0.50 - 1.20 mg/dL [facility] eGFR, CKD-EPI, Female 86 - PINF [facility] Glucose [Mass/Vol] 114 mg/dL 70 - 179 mg/dL [facility] Interpretation and review of laboratory results Abnormal [facility] Osmolality Calc [Osmolality] 300 [facility] Potassium [Moles/Vol] 4.7 mmol/L 3.5 - 5.0 mmol/L [facility] Sodium [Moles/Vol] 140 mmol/L 135 - 145 mmol/L [facility] Urea nitrogen [Mass/Vol] 26 mg/dL High 7 - 25 mg/dL [facility] Urea nitrogen/Creatinine [Mass ratio] 40 mg/mg [facility] Anion gap [Moles/Vol] 11 mmol/L Normal 7-17 [facility] Comment on above: Performed By: #### U R #### [facility] (DEFAULT) [address] [place] [address] Chloride [Moles/Vol] 104 mmol/L Normal 98-108 [facility] Comment on above: Performed By: #### U R #### [facility] (DEFAULT) [address] [place] [address] CO2 [Moles/Vol] 30 mmol/L Normal 21-31 [facility] Comment on above: Performed By: #### U R #### [facility] (DEFAULT) [address] [address] Creatinine [Mass/Vol] 0.65 mg/dL Normal 0.50-1.20 [facility] Comment on above: Performed By: #### U R #### [facility] (DEFAULT) [address] [place] [address] GFR/1.73 sq M.predicted among non-blacks MDRD (S/P/Bld) [Vol rate/Area] 86 mL/min/{1.73_m2} Normal >=60 [facility] Comment on above: Result Comment: Repo rted eGFR is based on the CKD-EPI 2020 equation using creatinine, age, and sex. Performed By: #### U R #### [facility] (DEFAULT) [address] [place] [address] Glucose [Mass/Vol] 114 mg/dL Normal Nonfastin g : 70-179 mg/dL; Fastin-99 [facility] Comment on above: Performed By: #### U R #### [facility] (DEFAULT) [address] [place] [address] Osmolality [Osmolality] 300 mosm/kg Normal 278-305 [facility] Comment on above: Performed By: #### U R #### [facility] (DEFAULT) [address] [address] Potassium [Moles/Vol] 4.7 mmol/L Normal 3.5-5.0 [facility] Comment on above: Performed By: #### U R #### [facility] (DEFAULT) [address] [address] Sodium [Moles/Vol] 140 mmol/L Normal 135-145 [facility] Comment on above: Performed By: #### U R #### [facility] (DEFAULT) [address] [address] Urea nitrogen [Mass/Vol] 26 mg/dL High 7-25 [facility] Comment on above: Performed By: #### U R #### [facility] (DEFAULT) [address] [place] [address] Urea nitrogen/Creatinine [Mass ratio] 40 mg/mg Normal [facility] Comment on above: Performed By: #### U R #### [facility] (DEFAULT) [address] [place] [address] HEPATIC FUNCTION PANELon Albumin [Mass/Vol] 3 g/dL Low 3.5 - 5.0 g/dL [facility] ALP [Catalytic activity/Vol] 76 U/L 32 - 126 U/L [facility] ALT [Catalytic activity/Vol] 11 U/L 9 - 48 U/L [facility] AST [Catalytic activity/Vol] 14 U/L 10 - 39 U/L [facility] Bilirubin [Mass/Vol] 0.2 mg/dL [facility] - 1.5 mg/dL [facility] Bilirubin.direct [Mass/Vol] mg/dL [facility] - 0.3 mg/dL [facility] Interpretation and review of laboratory results Abnormal [facility] Protein [Mass/Vol] 5.9 g/dL Low 6.4 - 8.3 g/dL [facility] Albumin [Mass/Vol] 3.0 g/dL Low 3.5-5.0 [facility] Comment on above: Performed By: #### U [id number] #### U [facility] (DEFAULT) [address] [place] [address] ALP [Catalytic activity/Vol] 76 U/L Normal 32-126 [facility] Comment on above: Performed By: #### U [id number] #### [facility] (DEFAULT) [address] [place] [address] ALT [Catalytic activity/Vol] 11 U/L Normal 9-48 [facility] Comment on above: Performed By: #### U [id number] #### [facility] (DEFAULT) [address] [place] [address] AST [Catalytic activity/Vol] 14 U/L Normal 10-39 [facility] Comment on above: Performed By: #### U [id number] #### [facility] (DEFAULT) [address] [place] [address] Bilirubin [Mass/Vol] 0.2 mg/dL Normal <1.5 [facility] Comment on above: Performed By: #### U [id number] #### [facility] (DEFAULT) [address] [place] [address] Bilirubin Direct < Normal <0.3 [facility] Comment on above: Performed By: #### U [id number] #### [facility] (DEFAULT) [address] [place] [address] Protein [Mass/Vol] 5.9 g/dL Low 6.4-8.3 [facility] Comment on above: Performed By: #### U [id number] #### [facility] (DEFAULT) [address] [place] [address] CARDIAC RHYTHMon 11-14-2024 [facility] CBC AND ELECTRONIC DIFFon Basophils (Bld) [#/Vol] 0.09 10*3/uL 0.00 - 0.15 K/uL [facility] Basophils/100 WBC (Bld) 0.9 % [facility] Differential cell count method Nom (Bld) Electronic Differential [facility] Eosinophils (Bld) [#/Vol] 0.34 10*3/uL 0.00 - 0.42 K/uL [facility] Eosinophils/100 WBC (Bld) 3.2 % [facility] Erythrocyte distribution width (RBC) [Ratio] 12.8 % 10.8 - 14.9 % [facility] Hematocrit (Bld) [Volume fraction] 35.6 % 34.9 - 44.3 % [facility] Hemoglobin (Bld) [Mass/Vol] 11.3 g/dL Low 11.4 - 15.2 g/dL [facility] Immature granulocytes (Bld) [#/Vol] K/uL NINF - 0.08 K/uL [facility] Immature granulocytes/100 WBC (Bld) 0.3 % [facility] Interpretation and review of laboratory results Abnormal [facility] Lymphocytes (Bld) [#/Vol] 1.14 10*3/uL Low 1.16 - 3.51 K/uL [facility] Lymphocytes/100 WBC (Bld) 10.8 % [facility] MCH (RBC) [Entitic mass] 30.7 pg 25.9 - 33.9 pg [facility] MCHC (RBC) [Mass/Vol] 31.7 g/dL 31.4 - 35.9 g/dL [facility] MCV (RBC) [Entitic vol] 96.7 fL 79.6 - 97.7 fL [facility] Monocytes (Bld) [#/Vol] 0.84 10*3/uL 0.22 - 0.87 K/uL [facility] Monocytes/100 WBC (Bld) 8 % [facility] Neutrophils (Bld) [#/Vol] 8.11 10*3/uL High 1.64 - 7.28 K/uL [facility] Nucleated RBC/100 WBC (Bld) [Ratio] 0 % [facility] Platelet mean volume (Bld) [Entitic vol] 9.9 fL 8.5 - 12.2 fL [facility] Platelets (Bld) [#/Vol] 328 10*3/uL 150 - 393 K/uL [facility] RBC (Bld) [#/Vol] 3.68 10*6/uL Low [facility] Segmented neutrophils/100 WBC (Bld) 76.8 % [facility] WBC (Bld) [#/Vol] 10.55 10*3/uL 3.99 - 11.19 K/uL [facility] Basophils (Bld) [#/Vol] 0.09 10*3/uL Normal 0.00-0.15 [facility] Comment on above: Performed By: #### T YPEC #### [facility] (DEFAULT) [address] [address] Basophils/100 WBC (Bld) 0.9 % Normal [facility] Comment on above: Performed By: #### T YPEC #### [facility] (DEFAULT) [address] [address] DIFF STATUS Electronic Differential Normal [facility] Comment on above: Performed By: #### T YPEC #### [facility] (DEFAULT) [address] [address] Eosinophils (Bld) [#/Vol] 0.34 10*3/uL Normal 0.00-0.42 [facility] Comment on above: Performed By: #### T YPEC #### [facility] (DEFAULT) [address] [address] Eosinophils/100 WBC (Bld) 3.2 % Normal [facility] Comment on above: Performed By: #### T YPEC #### [facility] (DEFAULT) [address] [address] Hematocrit (Bld) [Volume fraction] 35.6 % Normal 34.9-44.3 [facility] Comment on above: Performed By: #### T YPEC #### [facility] (DEFAULT) [address] [address] Hemoglobin (Bld) [Mass/Vol] 11.3 g/dL Low 11.4-15.2 [facility] Comment on above: Performed By: #### T YPEC #### [facility] (DEFAULT) [address] [address] Immature Grans % 0.3 % Normal [facility] Comment on above: Performed By: #### T YPEC #### [facility] (DEFAULT) [address] [address] Immature Grans Absolute < Normal <=0.08 [facility] Comment on above: Performed By: #### T YPEC #### [facility] (DEFAULT) [address] [address] Lymphocytes (Bld) [#/Vol] 1.14 10*3/uL Low 1.16-3.51 [facility] Comment on above: Performed By: #### T YPEC #### [facility] (DEFAULT) [address] [address] Lymphocytes/100 WBC (Bld) 10.8 % Normal [facility] Comment on above: Performed By: #### T YPEC #### [facility] (DEFAULT) [address] [address] MCV (RBC) [Entitic vol] 96.7 fL Normal 79.6-97.7 [facility] Comment on above: Performed By: #### T YPEC #### [facility] (DEFAULT) [address] [address] Mean Cell Hgb 30.7 pg Normal 25.9-33.9 [facility] Comment on above: Performed By: #### T YPEC #### [facility] (DEFAULT) [address] [address] Mean Cell Hgb Conc 31.7 g/dL Normal 31.4-35.9 [facility] Comment on above: Performed By: #### T YPEC #### [facility] (DEFAULT) [address] [address] Monocytes (Bld) [#/Vol] 0.84 10*3/uL Normal 0.22-0.87 [facility] Comment on above: Performed By: #### T YPEC #### [facility] (DEFAULT) [address] [address] Monocytes/100 WBC (Bld) 8.0 % Normal [facility] Comment on above: Performed By: #### T YPEC #### [facility] (DEFAULT) [address] [address] Nucleated RBC 0.0 /100 WBC Normal <=0.2 [facility] Comment on above: Performed By: #### T YPEC #### [facility] (DEFAULT) [address] [address] Platelet mean volume (Bld) [Entitic vol] 9.9 fL Normal 8.5-12.2 [facility] Comment on above: Performed By: #### T YPEC #### [facility] (DEFAULT) [address] [address] Platelets (Bld) [#/Vol] 328 10*3/uL Normal 150-393 [facility] Comment on above: Performed By: #### T YPEC #### [facility] (DEFAULT) [address] [address] RBC (Bld) [#/Vol] 3.68 10*6/uL Low 3.91-5.04 [facility] Comment on above: Performed By: #### T YPEC #### [facility] (DEFAULT) [address] [address] RBC Distribution 12.8 % Normal 10.8-14.9 [facility] Comment on above: Performed By: #### T YPEC #### [facility] (DEFAULT) [address] [address] Segs + Bands Auto 76.8 % Normal [facility] Comment on above: Performed By: #### T YPEC #### [facility] (DEFAULT) [address] [address] Segs + Bands,Absolute Auto 8.11 K/uL High 1.64-7.28 [facility] Comment on above: Performed By: #### T YPEC #### [facility] (DEFAULT) [address] [place] [address] WBC (Bld) [#/Vol] 10.55 10*3/uL Normal 3.99-11.19 [facility] Comment on above: Performed By: #### T YPEC #### [facility] (DEFAULT) [address] [place] [address] CHEM 7 (LYTES,BUN,CREA,GLUC) on 11-12-2024 Anion gap [Moles/Vol] 13 mmol/L 7 - 17 mmol/L [facility] Chloride [Moles/Vol] 101 mmol/L 98 - 10 8 [facility] CO2 [Moles/Vol] 26 mmol/L 21 - 31 mmol/L [facility] Creatinine [Mass/Vol] 0.59 mg/dL 0.50 - 1.20 mg/dL [facility] eGFR, CKD-EPI, Female 88 - PINF [facility] Glucose [Mass/Vol] 125 mg/dL 70 - 179 mg/dL [facility] Interpretation and review of laboratory results Abnormal [facility] Osmolality Calc [Osmolality] 291 [facility] Potassium [Moles/Vol] 4.9 mmol/L 3.5 - 5.0 mmol/L [facility] Sodium [Moles/Vol] 135 mmol/L 135 - 145 mmol/L [facility] Urea nitrogen [Mass/Vol] 26 mg/dL High 7 - 25 mg/dL [facility] Urea nitrogen/Creatinine [Mass ratio] 44 mg/mg [facility] Anion gap [Moles/Vol] 13 mmol/L Normal 7-17 [facility] Comment on above: Performed By: #### U R #### [facility] (DEFAULT) [address] [place] [address] Chloride [Moles/Vol] 101 mmol/L Normal 98-108 [facility] Comment on above: Performed By: #### U R #### [facility] (DEFAULT) [address] [place] [address] CO2 [Moles/Vol] 26 mmol/L Normal 21-31 [facility] Comment on above: Performed By: #### U R #### [facility] (DEFAULT) [address] [address] Creatinine [Mass/Vol] 0.59 mg/dL Normal 0.50-1.20 [facility] Comment on above: Performed By: #### U R #### [facility] (DEFAULT) [address] [place] [address] GFR/1.73 sq M.predicted among non-blacks MDRD (S/P/Bld) [Vol rate/Area] 88 mL/min/{1.73_m2} Normal >=60 [facility] Comment on above: Result Comment: Repo rted eGFR is based on the CKD-EPI 2020 equation using creatinine, age, and sex. Performed By: #### U R #### [facility] (DEFAULT) [address] [address] Glucose [Mass/Vol] 125 mg/dL Normal Nonfastin g : 70-179 mg/dL; Fastin-99 [facility] Comment on above: Performed By: #### U R #### [facility] (DEFAULT) [address] [place] [address] Osmolality [Osmolality] 291 mosm/kg Normal 278-305 [facility] Comment on above: Performed By: #### U R #### [facility] (DEFAULT) [address] [address] Potassium [Moles/Vol] 4.9 mmol/L Normal 3.5-5.0 [facility] Comment on above: Performed By: #### U R #### [facility] (DEFAULT) [address] [address] Sodium [Moles/Vol] 135 mmol/L Normal 135-145 [facility] Comment on above: Performed By: #### U R #### [facility] (DEFAULT) [address] [address] Urea nitrogen [Mass/Vol] 26 mg/dL High 7-25 [facility] Comment on above: Performed By: #### U R #### [facility] (DEFAULT) [address] [place] [address] Urea nitrogen/Creatinine [Mass ratio] 44 mg/mg Normal [facility] Comment on above: Performed By: #### U R #### [facility] (DEFAULT) [address] [place] [address] INTERVENTIONAL UPPER ENDOSCO PYon 11-12-2024 Body surface area Derived from formula 1.53 m2 [facility], [facility] Radiology Study observation (narrative) [facility] PT,INR,PTTon 11-12-2024 aPTT Coag (PPP) [Time] 29.9 s [facility] INR Coag (Bld) [Relative time] 1.1 {INR} 0.9 - 1.1 [facility] Interpretation and review of laboratory results Normal [facility] PT Coag (PPP) [Time] 13.7 s [facility] aPTT Coag (Bld) [Time] 29.9 s Normal 24.0-34.3 [facility] Comment on above: Performed By: #### U [id number] #### [facility] (DEFAULT) [address] [place] [address] INR Coag (PPP) [Relative time] 1.1 {INR} Normal 0.9-1.1 [facility] Comment on above: Performed By: #### U [id number] #### [facility] (DEFAULT) [address] [place] [address] PT Coag (PPP) [Time] 13.7 s Normal 11.9-14.2 [facility] Comment on above: Performed By: #### U [id number] #### [facility] (DEFAULT) [address] [place] [address] Portable XR Chest Viewson RADIOLOGY RADIOLOGY [facility] Radiology Study observation (narrative) [facility] Portable XR Chest ViewsOrder ed By: Andrea Mata on 11-12-2024 [facility] Work Phone: VENOUS BLOOD GASon 5 Base excess Calc (Bld) [Moles/Vol] 2.9 mmol/L -3.0 - 3.0 mmol/L [facility] CO2 (Bld) [Partial pressure] 41 mm[Hg] [facility] HCO3 (Bld) [Moles/Vol] 27 mmol/L 22 - 29 mmol/L [facility] Interpretation and review of laboratory results Abnormal [facility] Oxygen (Bld) [Partial pressure] 64 mm[Hg] mm Hg [facility] Oxygen saturation in Blood 94 % High 70 - 80 % [facility] pH (Bld) 7.43 [pH] 7.32 - 7.43 [facility] Specimen source Nom (Unsp spec) Venous [facility] Base Excess 2.9 mmol/L Normal -3.0-3.0 [facility] Comment on above: Performed By: #### G [id number] #### [facility] (DEFAULT) [address] [address] HCO3 (Bld) [Moles/Vol] 27 mmol/L Normal 22-29 [facility] Comment on above: Performed By: #### G ASV5 #### [facility] (DEFAULT) [address] [place] [address] Oxygen saturation in Blood 94 % High 70-80 [facility] Comment on above: Performed By: #### G ASV5 #### [facility] (DEFAULT) [address] [place] [address] pCO2, Venous 41 mm Hg Normal 36-52 [facility] Comment on above: Performed By: #### G ASV5 #### [facility] (DEFAULT) [address] [place] [address] pH, Venous 7.43 Normal 7.32-7.43 [facility] Comment on above: Performed By: #### G ASV5 #### [facility] (DEFAULT) [address] [place] [address] pO2, Venous 64 mm Hg Normal [facility] Comment on above: Result Comment: Veno us pO2 is not recommended for the evaluation of oxygen status, clinical correlation is recommended. Performed By: #### G ASV5 #### [facility] (DEFAULT) [address] [place] [address] Specimen type Nom (Spec) Venous Normal [facility] Comment on above: Performed By: #### G ASV5 #### [facility] (DEFAULT) [address] [place] [address] XR CHEST 1 VIEW PORTABLEon 0 11-12-2024 XR CHEST 1 VIEW PORTABLE EXAM: XR CHEST 1 VIEW PORTABLE, 11/12/2024 04:22 AM COMPARISON: November 11, 2024 CLINICAL INDICATIONS: SOB, wheezing RELEVANT CLINICAL HISTORY: FINDINGS: (Adequate technique) Implanted Devices: NG tube extends into the stomach Thorax: No acute findings in the chest. The lungs are grossly clear with no focal airspace disease or overt pulmonary edema. No definite pleural effusion or pneumothorax. Heart size is within normal limits. Chest wall structures are unremarkable. IMPRESSION: No acute cardiopulmonary findings Normal [facility] CT HEAD WITHOUT CONTRASTon 0 11-11-2024 CT HEAD WITHOUT CONTRAST EXAM: CT HEAD WITHOUT CONTRAST, 11/11/2024 2:15 PM COMPARISON: CT HEAD WITHOUT CONTRAST October 19, 2024 CLINICAL INDICATIONS: 84 years Female more sleepy and drowsy TECHNIQUE: A series of transaxial computerized tomographic images are obtained from base of skull to vertex without intravenous contrast. Axial whole-head and thin section posterior fossa slices are provided. Reformats: Sagittal and coronal. FINDINGS: Examination is mildly limited by motion artifact. Evolving left thalamic intraparenchymal hematoma, with interval resolution of the previously seen hyperdense component. There is a small residual area of hypodensity without significant mass effect. No new intracranial hemorrhage. Chronic left MCA territory infarct. No acute large territory infarction is seen. Patchy periventricular white matter hypoattenuation is noted which is non-specific, but likely due to chronic small vessel ischemic changes. No significant mass effect or midline shift. Ventricles and sulci are enlarged, compatible with brain parenchymal volume loss. Skull appears intact. Evidence of prior bilateral cataract surgery. Visualized paranasal sinuses are clear. Visualized mastoid air cells are clear. Atherosclerotic calcifications of the major arteries at the skull base are noted. IMPRESSION: 1. Evolving left thalamic intraparenchymal hematoma, which has markedly decreased in conspicuity. No significant associated mass effect. 2. No new intracranial hemorrhage or mass effect. I personally viewed and interpreted these images and I have reviewed and approved this report. Normal [facility] CT Head WO contraston 2024 RADIOLOGY RADIOLOGY [facility] Radiology Study observation (narrative) [facility] CT Head WO contrastOrdered B y: Ernie Cornelius on 11-11-2024 [facility] Work Phone: Portable XR Chest Viewson RADIOLOGY RADIOLOGY [facility] Radiology Study observation (narrative) [facility] Portable XR Chest ViewsOrder ed By: Monroe Clark on 11-11-2024 [facility] Work Phone: XR CHEST 1 VIEW PORTABLEon 0 11-11-2024 XR CHEST 1 VIEW PORTABLE EXAM: XR CHEST 1 VIEW PORTABLE, 11/11/2024 14:54 PM COMPARISON: XR CHEST 1 VIEW PORTABLE November 10, 2024 CLINICAL INDICATIONS: increased cough and secretion RELEVANT CLINICAL HISTORY: FINDINGS: (Adequate technique) Implanted Devices: Partially visualized feeding tube terminating in stomach. Thorax: New right lower lung consolidation could represent pneumonia versus aspiration. No pleural effusion or pneumothorax is noted. Cardiomediastinal silhouette is stable as compared to previous study. No interval osseous abnormalities noted. Calcifications are noted in the aortic arch. IMPRESSION: New right lower lung consolidation on medial heart border may represent a developing pneumonia. I personally viewed and interpreted these images and I have reviewed and approved this report. Normal [facility] CNPNon 11-10-2024 CNPN Telephone (FAMPWS) BHARTIBEHZAD ([id number]) 1940 F Date Time Provider Department 11/10/24 [facility] During your visit today, we recorded the following information about you: Molly Adame RN 11/10/2024 11:04 AM Signed Crystal Stroke Nurse Navigator with [facility] and reports Pt's daughter wanted her PCP to refer Pt to [facility]. She reports they like them to start 4-6 weeks after discharge, and she hasn't been discharged yet. She is going to fax over their [facility] in the [place] to fax # [phone]. JESIKA Garcia Lisa, MA 11/11/2024 9:20 AM Signed Fax received and placed on provider desk Winsome Butler MA November 11, 2024 9:20 AM Allergies As of Date: 11/10/2024 Noted Allergy Reaction ADHESIVE TAPE (ROSINS) 08/27/2011 2 - Rash BACTRIM (SULFAMETHOXAZOLE-TRIMETH*0 09/25/2018 2 - Rash MACROBID (NITROFURANTOIN MONOHYD/*09/25/2018 2 - Rash MOOMNDU-RAJ-WVE REDUCTASE INHIBIT*10/06/2014 5 - Intolerance Comments: severe leg pain Date Reviewed: 10/13/2024 Reviewed by: Yola Nj COTA/Filippo - Fully Assessed Reason for Visit: Fax [facility] [place] [Other] Prescriptions as of 11/12/2024 - acetaminophen (TYLENOL ARTHRITIS PAIN) 650 mg CR tablet Take 650 mg by mouth once daily. - Cholecalciferol, Vitamin D3, (VITAMIN D) 25 mcg (1,000 unit) cap Take 1,000 Units by mouth once daily. - lisinopril (ZESTRIL) 10 mg tablet Take 10 mg by mouth two times a day. - ZINC ORAL Take 50 mg by mouth once daily. - apixaban (ELIQUIS) 2.5 mg tab(s) Take 1 tablet by mouth two times a day. - metoprolol tartrate, short acting, (LOPRESSOR) 25 mg tablet Take 1 tablet by mouth two times a day. - cyanocobalamin, vitamin B-12, 500 mcg chew Take 1 tablet by mouth once daily. - estradiol (ESTRACE) 0.01 % (0.1 mg/gram) vaginal cream Apply pea-sized amount to perineum and 1 applicator vaginally Fri, Fri, Fri for atrophic vaginitis. - TURMERIC ORAL Take 1 tablet by mouth once daily. Patient should start on September 22, 2024. - CAPSICUM, CAYENNE, ORAL Take 1 capsule by mouth once daily. Patient should start on September 22, 2024. - FLAXSEED OIL ORAL Take 1 capsule by mouth once daily. Patient should start on September 22, 2024. - GARLIC ORAL Take 1 tablet by mouth once daily. Patient should start on September 22, 2024. - cranberry fruit extract (CRANBERRY ORAL) Take 650 mg by mouth once daily. - LACTOBACILLUS ACIDOPHILUS (PROBIOTIC ACIDOPHILUS ORAL) Take 1 capsule by mouth once daily. Patient should start on September 22, 2024. - multivitamin ORAL tablet Take 1 tablet by mouth once daily. Problem List As Of Date 11/10/2024 Noted Resolved Trigger ring finger of right hand [M65.341] 08/15/2016 Injury of extensor tendon of hand [S66.909A] 08/15/2016 Spontaneous rupture of extensor tendon of left *09/23/2016 Acquired trigger finger [M65.30] 12/10/2016 Chronic renal insufficiency, stage 3 (moderate)*02/27/2017 Vitamin D deficiency [E55.9] 02/27/2017 DDD (degenerative disc disease), cervical [M50.*02/27/2017 Primary osteoarthritis of right hip [M16.11] 02/27/2017 Iatrogenic [place]'s disease (HCC) [XLX4161] 07/28/2017 07/06/2018 Collagenous colitis [K52.831] 12/21/2018 IBS (irritable bowel syndrome) [K58.9] 12/21/2018 Hiatal hernia [K44.9] 09/11/2020 Fall from standing [W19.XXXA] 06/05/2021 Rotator cuff tear arthropathy, left [M75.102, M*10/29/2021 Paroxysmal atrial fibrillation (HCC) [I48.0] 04/11/2022 Primary hypertension [I10] 12/30/2022 Acute pain of right shoulder [M25.511] 04/16/2023 Severe pain of left shoulder [M25.512] 04/16/2023 Cervicalgia [M54.2] 04/16/2023 Encounter Status:Closed by WINSOME BUTLER on 11/12/24 Normal [facility] Portable XR Chest Viewson RADIOLOGY RADIOLOGY [facility] Radiology Study observation (narrative) [facility] Portable XR Chest ViewsOrder ed By: Sarahy Reyes on 11-10-2024 [facility] Work Phone: XR CHEST 1 VIEW PORTABLEon 0 11-10-2024 XR CHEST 1 VIEW PORTABLE EXAM: XR CHEST 1 VIEW PORTABLE, 11/10/2024 11:16 AM COMPARISON: None available CLINICAL INDICATIONS: Cough RELEVANT CLINICAL HISTORY: FINDINGS: (Adequate technique) Implanted Devices: Feeding tube terminating in the stomach. Thorax: Lungs are clear without pleural effusion or pneumothorax. Cardiac silhouette is within normal limits. Scoliosis and degenerative changes noted throughout the thoracic spine. IMPRESSION: 1. No evidence of acute inflammatory/infectious process. I personally viewed and interpreted these images and I have reviewed and approved this report. Normal [facility] CBC AND ELECTRONIC DIFFon Basophils (Bld) [#/Vol] 0.11 10*3/uL 0.00 - 0.15 K/uL [facility] Basophils/100 WBC (Bld) 1.2 % [facility] [facility] Differential cell count method Nom (Bld) Electronic [facility] Eosinophils (Bld) [#/Vol] 0.72 10*3/uL High 0.00 - 0.42 K/uL [facility] Eosinophils/100 WBC (Bld) 8 % [facility] Erythrocyte distribution width (RBC) [Ratio] 12.8 % 10.8 - 14.9 % [facility] Hematocrit (Bld) [Volume fraction] 37.7 % 34.9 - 44.3 % [facility] Hemoglobin (Bld) [Mass/Vol] 12 g/dL 11.4 - 15.2 g/dL [facility] Immature granulocytes (Bld) [#/Vol] 0.07 10*3/uL NINF - 0.08 K/uL [facility] Immature granulocytes/100 WBC (Bld) 0.8 % [facility] Interpretation and review of laboratory results Abnormal [facility] Lymphocytes (Bld) [#/Vol] 1.78 10*3/uL 1.16 - 3.51 K/uL [facility] Lymphocytes/100 WBC (Bld) 19.7 % [facility] MCH (RBC) [Entitic mass] 30.6 pg 25.9 - 33.9 pg [facility] MCHC (RBC) [Mass/Vol] 31.8 g/dL 31.4 - 35.9 g/dL [facility] MCV (RBC) [Entitic vol] 96.2 fL 79.6 - 97.7 fL [facility] Monocytes (Bld) [#/Vol] 0.63 10*3/uL 0.22 - 0.87 K/uL [facility] Monocytes/100 WBC (Bld) 7 % [facility] Neutrophils (Bld) [#/Vol] 5.74 10*3/uL 1.64 - 7.28 K/uL [facility] Nucleated RBC/100 WBC (Bld) [Ratio] 0 % [facility] Platelet mean volume (Bld) [Entitic vol] 9.1 fL 8.5 - 12.2 fL [facility] Platelets (Bld) [#/Vol] 427 10*3/uL High 150 - 393 K/uL [facility] RBC (Bld) [#/Vol] 3.92 10*6/uL [facility] Segmented neutrophils/100 WBC (Bld) 63.3 % [facility] WBC (Bld) [#/Vol] 9.05 10*3/uL 3.99 - 11.19 K/uL [facility] Basophils (Bld) [#/Vol] 0.11 10*3/uL Normal 0.00-0.15 [facility] Comment on above: Performed By: #### C HM7 #### [facility] (DEFAULT) [address] [address] Basophils/100 WBC (Bld) 1.2 % Normal [facility] Comment on above: Performed By: #### C HM7 #### [facility] (DEFAULT) [address] [address] DIFF STATUS Electronic Differential Normal [facility] Comment on above: Performed By: #### C HM7 #### [facility] (DEFAULT) [address] [place] [address] Eosinophils (Bld) [#/Vol] 0.72 10*3/uL High 0.00-0.42 [facility] Comment on above: Performed By: #### C HM7 #### [facility] (DEFAULT) [address] [address] Eosinophils/100 WBC (Bld) 8.0 % Normal [facility] Comment on above: Performed By: #### C HM7 #### [facility] (DEFAULT) [address] [address] Hematocrit (Bld) [Volume fraction] 37.7 % Normal 34.9-44.3 [facility] Comment on above: Performed By: #### C HM7 #### [facility] (DEFAULT) [address] [place] [address] Hemoglobin (Bld) [Mass/Vol] 12.0 g/dL Normal 11.4-15.2 [facility] Comment on above: Performed By: #### C HM7 #### [facility] (DEFAULT) [address] [address] Immature Grans % 0.8 % Normal [facility] Comment on above: Performed By: #### C HM7 #### [facility] (DEFAULT) [address] [address] Immature Grans Absolute 0.07 K/uL Normal <=0.08 [facility] Comment on above: Performed By: #### C HM7 #### [facility] (DEFAULT) [address] [address] Lymphocytes (Bld) [#/Vol] 1.78 10*3/uL Normal 1.16-3.51 [facility] Comment on above: Performed By: #### C HM7 #### [facility] (DEFAULT) [address] [address] Lymphocytes/100 WBC (Bld) 19.7 % Normal [facility] Comment on above: Performed By: #### C HM7 #### [facility] (DEFAULT) [address] [address] MCV (RBC) [Entitic vol] 96.2 fL Normal 79.6-97.7 [facility] Comment on above: Performed By: #### C HM7 #### [facility] (DEFAULT) [address] [address] Mean Cell Hgb 30.6 pg Normal 25.9-33.9 [facility] Comment on above: Performed By: #### C HM7 #### [facility] (DEFAULT) [address] [address] Mean Cell Hgb Conc 31.8 g/dL Normal 31.4-35.9 [facility] Comment on above: Performed By: #### C HM7 #### [facility] (DEFAULT) [address] [place] [address] Monocytes (Bld) [#/Vol] 0.63 10*3/uL Normal 0.22-0.87 [facility] Comment on above: Performed By: #### C HM7 #### [facility] (DEFAULT) [address] [place] [address] Monocytes/100 WBC (Bld) 7.0 % Normal [facility] Comment on above: Performed By: #### C HM7 #### U [facility] (DEFAULT) [address] [place] [address] Nucleated RBC 0.0 /100 WBC Normal <=0.2 [facility] Comment on above: Performed By: #### C HM7 #### U [facility] (DEFAULT) [address] [place] [address] Platelet mean volume (Bld) [Entitic vol] 9.1 fL Normal 8.5-12.2 [facility] Comment on above: Performed By: #### C HM7 #### [facility] (DEFAULT) [address] [place] [address] Platelets (Bld) [#/Vol] 427 10*3/uL High 150-393 [facility] Comment on above: Performed By: #### C HM7 #### [facility] (DEFAULT) [address] [place] [address] RBC (Bld) [#/Vol] 3.92 10*6/uL Normal 3.91-5.04 [facility] Comment on above: Performed By: #### C HM7 #### [facility] (DEFAULT) [address] [place] [address] RBC Distribution 12.8 % Normal 10.8-14.9 [facility] Comment on above: Performed By: #### C HM7 #### U [facility] (DEFAULT) [address] [place] [address] Segs + Bands Auto 63.3 % Normal [facility] Comment on above: Performed By: #### C HM7 #### [facility] (DEFAULT) [address] [place] [address] Segs + Bands,Absolute Auto 5.74 K/uL Normal 1.64-7.28 [facility] Comment on above: Performed By: #### C HM7 #### [facility] (DEFAULT) [address] [place] [address] WBC (Bld) [#/Vol] 9.05 10*3/uL Normal 3.99-11.19 [facility] Comment on above: Performed By: #### C HM7 #### [facility] (DEFAULT) [address] [place] [address] CHEM 7 (LYTES,BUN,CREA,GLUC) on 11-09-2024 Anion gap [Moles/Vol] 12 mmol/L 7 - 17 mmol/L [facility] Chloride [Moles/Vol] 101 mmol/L 98 - 10 8 mmol/L [facility] CO2 [Moles/Vol] 29 mmol/L 21 - 31 mmol/L [facility] Creatinine [Mass/Vol] 0.76 mg/dL 0.50 - 1.20 mg/dL [facility] eGFR, CKD-EPI, Female 76 - PINF [facility] Glucose [Mass/Vol] 107 mg/dL 70 - 179 mg/dL [facility] Interpretation and review of laboratory results Abnormal [facility] Osmolality Calc [Osmolality] 295 [facility] Potassium [Moles/Vol] 4.5 mmol/L 3.5 - 5.0 mmol/L [facility] Sodium [Moles/Vol] 137 mmol/L 135 - 145 mmol/L [facility] Urea nitrogen [Mass/Vol] 32 mg/dL High 7 - 25 mg/dL [facility] Urea nitrogen/Creatinine [Mass ratio] 42 mg/mg [facility] Anion gap [Moles/Vol] 12 mmol/L Normal 7-17 [facility] Comment on above: Performed By: #### C HM7 #### [facility] (DEFAULT) [address] [place] [address] Chloride [Moles/Vol] 101 mmol/L Normal 98-108 [facility] Comment on above: Performed By: #### C HM7 #### [facility] (DEFAULT) [address] [place] [address] CO2 [Moles/Vol] 29 mmol/L Normal 21-31 [facility] Comment on above: Performed By: #### C HM7 #### [facility] (DEFAULT) [address] [place] [address] Creatinine [Mass/Vol] 0.76 mg/dL Normal 0.50-1.20 [facility] Comment on above: Performed By: #### C HM7 #### U [facility] (DEFAULT) [address] [place] [address] GFR/1.73 sq M.predicted among non-blacks MDRD (S/P/Bld) [Vol rate/Area] 76 mL/min/{1.73_m2} Normal >=60 [facility] Comment on above: Result Comment: Repo rted eGFR is based on the CKD-EPI 2020 equation using creatinine, age, and sex. Performed By: #### C HM7 #### [facility] (DEFAULT) [address] [place] [address] Glucose [Mass/Vol] 107 mg/dL Normal Nonfastin g : 70-179 mg/dL; Fastin-99 [facility] Comment on above: Performed By: #### C HM7 #### [facility] (DEFAULT) [address] [place] [address] Osmolality [Osmolality] 295 mosm/kg Normal 278-305 [facility] Comment on above: Performed By: #### C HM7 #### U [facility] (DEFAULT) [address] [place] [address] Potassium [Moles/Vol] 4.5 mmol/L Normal 3.5-5.0 [facility] Comment on above: Performed By: #### C HM7 #### [facility] (DEFAULT) [address] [place] [address] Sodium [Moles/Vol] 137 mmol/L Normal 135-145 [facility] Comment on above: Performed By: #### C HM7 #### [facility] (DEFAULT) [address] [place] [address] Urea nitrogen [Mass/Vol] 32 mg/dL High 7- [facility] Comment on above: Performed By: #### C HM7 #### [facility] (DEFAULT) [address] [place] [address] Urea nitrogen/Creatinine [Mass ratio] 42 mg/mg Normal [facility] Comment on above: Performed By: #### C HM7 #### [facility] (DEFAULT) [address] [place] [address] FLEXIBLE ENDOSCOPIC EVALUATI ON OF SWALLOWINGon 11-09-2024 RADIOLOGY [facility] CBC AND ELECTRONIC DIFFon Basophils (Bld) [#/Vol] 0.11 10*3/uL 0.00 - 0.15 K/uL [facility] Basophils/100 WBC (Bld) 1.5 % [facility] Differential cell count method Nom (Bld) Electronic Differential [facility] Eosinophils (Bld) [#/Vol] 0.76 10*3/uL High 0.00 - 0.42 K/uL [facility] Eosinophils/100 WBC (Bld) 10.3 % [facility] Erythrocyte distribution width (RBC) [Ratio] 12.8 % 10.8 - 14.9 % [facility] Hematocrit (Bld) [Volume fraction] 37.5 % 34.9 - 44.3 % [facility] Hemoglobin (Bld) [Mass/Vol] 12 g/dL 11.4 - 15.2 g/dL [facility] Immature granulocytes (Bld) [#/Vol] 0.05 10*3/uL NINF - 0.08 K/uL [facility] Immature granulocytes/100 WBC (Bld) 0.7 % [facility] Interpretation and review of laboratory results Abnormal [facility] Lymphocytes (Bld) [#/Vol] 1.18 10*3/uL 1.16 - 3.51 K/uL [facility] Lymphocytes/100 WBC (Bld) 16 % [facility] MCH (RBC) [Entitic mass] 30.6 pg 25.9 - 33.9 pg [facility] MCHC (RBC) [Mass/Vol] 32 g/dL 31.4 - 35.9 g/dL [facility] MCV (RBC) [Entitic vol] 95.7 fL 79.6 - 97.7 fL [facility] Monocytes (Bld) [#/Vol] 0.38 10*3/uL 0.22 - 0.87 K/uL [facility] Monocytes/100 WBC (Bld) 5.1 % [facility] Neutrophils (Bld) [#/Vol] 4.9 10*3/uL 1.64 - 7.28 K/uL [facility] Nucleated RBC/100 WBC (Bld) [Ratio] 0 % [facility] Platelet mean volume (Bld) [Entitic vol] 9.1 fL 8.5 - 12.2 fL [facility] Platelets (Bld) [#/Vol] 408 10*3/uL High 150 - 393 K/uL [facility] RBC (Bld) [#/Vol] 3.92 10*6/uL [facility] Segmented neutrophils/100 WBC (Bld) 66.4 % [facility] WBC (Bld) [#/Vol] 7.38 10*3/uL 3.99 - 11.19 K/uL [facility] Basophils (Bld) [#/Vol] 0.11 10*3/uL Normal 0.00-0.15 [facility] Comment on above: Performed By: #### U [id number] #### [facility] (DEFAULT) [address] [place] [address] Basophils/100 WBC (Bld) 1.5 % Normal [facility] Comment on above: Performed By: #### U [id number] #### [facility] (DEFAULT) [address] [place] [address] DIFF STATUS Electronic Differential Normal [facility] Comment on above: Performed By: #### U [id number] #### [facility] (DEFAULT) [address] [place] [address] Eosinophils (Bld) [#/Vol] 0.76 10*3/uL High 0.00-0.42 [facility] Comment on above: Performed By: #### U [id number] #### [facility] (DEFAULT) [address] [address] Eosinophils/100 WBC (Bld) 10.3 % Normal [facility] Comment on above: Performed By: #### U [id number] #### [facility] (DEFAULT) [address] [address] Hematocrit (Bld) [Volume fraction] 37.5 % Normal 34.9-44.3 [facility] Comment on above: Performed By: #### U [id number] #### [facility] (DEFAULT) [address] [place] [address] Hemoglobin (Bld) [Mass/Vol] 12.0 g/dL Normal 11.4-15.2 [facility] Comment on above: Performed By: #### U [id number] #### [facility] (DEFAULT) [address] [address] Immature Grans % 0.7 % Normal [facility] Comment on above: Performed By: #### U [id number] #### [facility] (DEFAULT) [address] [place] [address] Immature Grans Absolute 0.05 K/uL Normal <=0.08 [facility] Comment on above: Performed By: #### U [id number] #### [facility] (DEFAULT) [address] [address] Lymphocytes (Bld) [#/Vol] 1.18 10*3/uL Normal 1.16-3.51 [facility] Comment on above: Performed By: #### U [id number] #### [facility] (DEFAULT) [address] [address] Lymphocytes/100 WBC (Bld) 16.0 % Normal [facility] Comment on above: Performed By: #### U [id number] #### [facility] (DEFAULT) [address] [address] MCV (RBC) [Entitic vol] 95.7 fL Normal 79.6-97.7 [facility] Comment on above: Performed By: #### U [id number] #### [facility] (DEFAULT) [address] [address] Mean Cell Hgb 30.6 pg Normal 25.9-33.9 [facility] Comment on above: Performed By: #### U [id number] #### [facility] (DEFAULT) [address] [address] Mean Cell Hgb Conc 32.0 g/dL Normal 31.4-35.9 [facility] Comment on above: Performed By: #### U [id number] #### [facility] (DEFAULT) [address] [address] Monocytes (Bld) [#/Vol] 0.38 10*3/uL Normal 0.22-0.87 [facility] Comment on above: Performed By: #### U [id number] #### [facility] (DEFAULT) [address] [address] Monocytes/100 WBC (Bld) 5.1 % Normal [facility] Comment on above: Performed By: #### U [id number] #### [facility] (DEFAULT) [address] [place] [address] Nucleated RBC 0.0 /100 WBC Normal <=0.2 [facility] Comment on above: Performed By: #### U [id number] #### [facility] (DEFAULT) [address] [place] [address] Platelet mean volume (Bld) [Entitic vol] 9.1 fL Normal 8.5-12.2 [facility] Comment on above: Performed By: #### U [id number] #### [facility] (DEFAULT) [address] [place] [address] Platelets (Bld) [#/Vol] 408 10*3/uL High 150-393 [facility] Comment on above: Performed By: #### U [id number] #### [facility] (DEFAULT) [address] [place] [address] RBC (Bld) [#/Vol] 3.92 10*6/uL Normal 3.91-5.04 [facility] Comment on above: Performed By: #### U [id number] #### [facility] (DEFAULT) [address] [place] [address] RBC Distribution 12.8 % Normal 10.8-14.9 [facility] Comment on above: Performed By: #### U [id number] #### [facility] (DEFAULT) [address] [place] [address] Segs + Bands Auto 66.4 % Normal [facility] Comment on above: Performed By: #### U [id number] #### [facility] (DEFAULT) [address] [place] [address] Segs + Bands,Absolute Auto 4.90 K/uL Normal 1.64-7.28 [facility] Comment on above: Performed By: #### U [id number] #### [facility] (DEFAULT) [address] [place] [address] WBC (Bld) [#/Vol] 7.38 10*3/uL Normal 3.99-11.19 [facility] Comment on above: Performed By: #### U [id number] #### [facility] (DEFAULT) [address] [place] [address] CHEM 7 (LYTES,BUN,CREA,GLUC) on 11-06-2024 Anion gap [Moles/Vol] 12 mmol/L 7 - 17 mmol/L [facility] Chloride [Moles/Vol] 104 mmol/L 98 - 10 8 mmol/L [facility] CO2 [Moles/Vol] 25 mmol/L 21 - 31 mmol/L [facility] Creatinine [Mass/Vol] 0.91 mg/dL 0.50 - 1.20 mg/dL [facility] eGFR, CKD-EPI, Female 61 - PINF [facility] Glucose [Mass/Vol] 88 mg/dL 70 - 179 mg/dL [facility] Osmolality Calc [Osmolality] 291 [facility] Potassium [Moles/Vol] 5 mmol/L 3.5 - 5.0 mmol/L [facility] Sodium [Moles/Vol] 136 mmol/L 135 - 145 mmol/L [facility] Urea nitrogen [Mass/Vol] 25 mg/dL 7 - 25 mg/dL [facility] Urea nitrogen/Creatinine [Mass ratio] 27 mg/mg [facility] Anion gap [Moles/Vol] 12 mmol/L Normal 7-17 [facility] Comment on above: Performed By: #### X M #### [facility] (DEFAULT) [address] [place] [address] Chloride [Moles/Vol] 104 mmol/L Normal 98-108 [facility] Comment on above: Performed By: #### X M #### [facility] (DEFAULT) [address] [place] [address] CO2 [Moles/Vol] 25 mmol/L Normal 21-31 [facility] Comment on above: Performed By: #### X M #### [facility] (DEFAULT) [address] [place] [address] Creatinine [Mass/Vol] 0.91 mg/dL Normal 0.50-1.20 [facility] Comment on above: Performed By: #### X M #### [facility] (DEFAULT) [address] [place] [address] GFR/1.73 sq M.predicted among non-blacks MDRD (S/P/Bld) [Vol rate/Area] 61 mL/min/{1.73_m2} Normal >=60 [facility] Comment on above: Result Comment: Repo rted eGFR is based on the CKD-EPI 2020 equation using creatinine, age, and sex. Performed By: #### X M #### [facility] (DEFAULT) [address] [place] [address] Glucose [Mass/Vol] 88 mg/dL Normal Nonfastin g : 70-179 mg/dL; Fastin-99 [facility] Comment on above: Performed By: #### X M #### [facility] (DEFAULT) [address] [place] [address] Osmolality [Osmolality] 291 mosm/kg Normal 278-305 [facility] Comment on above: Performed By: #### X M #### [facility] (DEFAULT) [address] [place] [address] Potassium [Moles/Vol] 5.0 mmol/L Normal 3.5-5.0 [facility] Comment on above: Performed By: #### X M #### [facility] (DEFAULT) [address] [place] [address] Sodium [Moles/Vol] 136 mmol/L Normal 135-145 [facility] Comment on above: Performed By: #### X M #### [facility] (DEFAULT) [address] [place] [address] Urea nitrogen [Mass/Vol] 25 mg/dL Normal 7-25 [facility] Comment on above: Performed By: #### X M #### [facility] (DEFAULT) [address] [place] [address] Urea nitrogen/Creatinine [Mass ratio] 27 mg/mg Normal [facility] Comment on above: Performed By: #### X M #### [facility] (DEFAULT) [address] [place] [address] URINE CULTUREOrdered By: Jag Bailey on 11-06-2024 Bacteria identified Cx Nom (Unsp spec) Growth [facility] Bacteria identified Cx Nom (Unsp spec) ENTEROCOCCUS FAECALIS Abnormal [facility] Interpretation and review of laboratory results Abnormal [facility] CBC,PLATELETSon 11-05-2024 Erythrocyte distribution width (RBC) [Ratio] 12.5 % 10.8 - 14.9 % [facility] Hematocrit (Bld) [Volume fraction] 37.5 % 34.9 - 44.3 % [facility] Hemoglobin (Bld) [Mass/Vol] 11.8 g/dL 11.4 - 15.2 g/dL [facility] Interpretation and review of laboratory results Abnormal [facility] MCH (RBC) [Entitic mass] 30.4 pg 25.9 - 33.9 pg [facility] MCHC (RBC) [Mass/Vol] 31.5 g/dL 31.4 - 35.9 g/dL [facility] MCV (RBC) [Entitic vol] 96.6 fL 79.6 - 97.7 fL [facility] Platelet mean volume (Bld) [Entitic vol] 9.5 fL 8.5 - 12.2 fL [facility] Platelets (Bld) [#/Vol] 478 10*3/uL High 150 - 393 K/uL [facility] RBC (Bld) [#/Vol] 3.88 10*6/uL [facility] WBC (Bld) [#/Vol] 8.21 10*3/uL 3.99 - 11.19 [facility] (LYTES,BUN,CREA,GLUC) on 11-05-2024 Anion gap [Moles/Vol] 14 mmol/L 7 - 17 mmol/L [facility] Chloride [Moles/Vol] 101 mmol/L 98 - 10 8 mmol/L [facility] CO2 [Moles/Vol] 27 mmol/L 21 - 31 mmol/L [facility] Creatinine [Mass/Vol] 0.8 mg/dL 0.50 - 1.20 mg/dL [facility] eGFR, CKD-EPI, Female 72 - PINF [facility] [facility] Glucose [Mass/Vol] 114 mg/dL 70 - 179 mg/dL [facility] Osmolality Calc [Osmolality] 295 [facility] Potassium [Moles/Vol] 4.3 mmol/L 3.5 - 5.0 mmol/L [facility] Sodium [Moles/Vol] 138 mmol/L 135 - 145 mmol/L [facility] Urea nitrogen [Mass/Vol] 25 mg/dL 7 - 25 mg/dL [facility] Urea nitrogen/Creatinine [Mass ratio] 31 mg/mg [facility] HIGH SENSITIVITY TROPONIN I - SINGLE ORDERon 11-05-2024 Interpretation and review of laboratory results Normal [facility] Troponin I.cardiac High sensitivity method [Mass/Vol] 9 ng/L NINF - 34 ng/L [facility] CBC,PLATELETSon 11-04-2024 Hematocrit (Bld) [Volume fraction] 37.5 % Normal 34.9-44.3 [facility] Comment on above: Performed By: #### U R #### [facility] (DEFAULT) [address] [address] Hemoglobin (Bld) [Mass/Vol] 11.8 g/dL Normal 11.4-15.2 [facility] Comment on above: Performed By: #### U R #### [facility] (DEFAULT) [address] [place] [address] MCV (RBC) [Entitic vol] 96.6 fL Normal 79.6-97.7 [facility] Comment on above: Performed By: #### U R #### [facility] (DEFAULT) [address] [place] [address] Mean Cell Hgb 30.4 pg Normal 25.9-33.9 [facility] Comment on above: Performed By: #### U R #### [facility] (DEFAULT) [address] [place] [address]74 Mean Cell Hgb Conc 31.5 g/dL Normal 31.4-35.9 [facility] Comment on above: Performed By: #### U R #### [facility] (DEFAULT) [address] [place] [address]61 Platelet mean volume (Bld) [Entitic vol] 9.5 fL Normal 8.5-12.2 [facility] Comment on above: Performed By: #### U R #### [facility] (DEFAULT) [address] [place] [address] Platelets (Bld) [#/Vol] 478 10*3/uL High 150-393 [facility] Comment on above: Performed By: #### U R #### [facility] (DEFAULT) [address] [place] [address]682 RBC (Bld) [#/Vol] 3.88 10*6/uL Low 3.91-5.04 [facility] Comment on above: Performed By: #### U R #### [facility] (DEFAULT) [address] [address] RBC Distribution 12.5 % Normal 10.8-14.9 [facility] Comment on above: Performed By: #### U R #### [facility] (DEFAULT) [address] [place] [address] WBC (Bld) [#/Vol] 8.21 10*3/uL Normal 3.99-11.19 [facility] Comment on above: Performed By: #### U R #### [facility] (DEFAULT) [address] [address] CHEM 7 (LYTES,BUN,CREA,GLUC) on 11-04-2024 Anion gap [Moles/Vol] 14 mmol/L Normal 7-17 [facility] Comment on above: Performed By: #### X M #### [facility] (DEFAULT) [address] [place] [address] Chloride [Moles/Vol] 101 mmol/L Normal 98-108 [facility] Comment on above: Performed By: #### X M #### [facility] (DEFAULT) [address] [address] CO2 [Moles/Vol] 27 mmol/L Normal 21-31 [facility] Comment on above: Performed By: #### X M #### [facility] (DEFAULT) [address] [address] Creatinine [Mass/Vol] 0.80 mg/dL Normal 0.50-1.20 [facility] Comment on above: Performed By: #### X M #### [facility] (DEFAULT) [address] [address] GFR/1.73 sq M.predicted among non-blacks MDRD (S/P/Bld) [Vol rate/Area] 72 mL/min/{1.73_m2} Normal >=60 [facility] Comment on above: Result Comment: Repo rted eGFR is based on the CKD-EPI 2020 equation using creatinine, age, and sex. Performed By: #### X M #### [facility] (DEFAULT) [address] [address] Glucose [Mass/Vol] 114 mg/dL Normal Nonfastin g : 70-179 mg/dL; Fastin-99 [facility] Comment on above: Performed By: #### X M #### [facility] (DEFAULT) [address] [place] [address] Osmolality [Osmolality] 295 mosm/kg Normal 278-305 [facility] Comment on above: Performed By: #### X M #### [facility] (DEFAULT) [address] [place] [address] Potassium [Moles/Vol] 4.3 mmol/L Normal 3.5-5.0 [facility] Comment on above: Performed By: #### X M #### [facility] (DEFAULT) [address] [place] [address] Sodium [Moles/Vol] 138 mmol/L Normal 135-145 [facility] Comment on above: Performed By: #### X M #### [facility] (DEFAULT) [address] [place] [address] Urea nitrogen [Mass/Vol] 25 mg/dL Normal 7-25 [facility] Comment on above: Performed By: #### X M #### [facility] (DEFAULT) [address] [place] [address] Urea nitrogen/Creatinine [Mass ratio] 31 mg/mg Normal [facility] Comment on above: Performed By: #### X M #### [facility] (DEFAULT) [address] [place] [address] HIGH SENSITIVITY TROPONIN I - SINGLE ORDERon 11-04-2024 hs-Troponin I 9 ng/L Normal <34 [facility] Comment on above: Order Comment: For i ndwelling catheters, specimen collection is acceptable on catheter day 1 and 2 only. ? Performed By: #### U [id number] #### [facility] (DEFAULT) [address] [place] [address] CBC AND ELECTRONIC DIFFon Basophils (Bld) [#/Vol] 0.1 10*3/uL 0.00 - 0.15 K/uL [facility] Basophils/100 WBC (Bld) 1.1 % [facility] Differential cell count method Nom (Bld) Electronic Differential [facility] Eosinophils (Bld) [#/Vol] 0.59 10*3/uL High 0.00 - 0.42 K/uL [facility] Eosinophils/100 WBC (Bld) 6.2 % [facility] Erythrocyte distribution width (RBC) [Ratio] 12.5 % 10.8 - 14.9 % [facility] Hematocrit (Bld) [Volume fraction] 37.4 % 34.9 - 44.3 % [facility] Hemoglobin (Bld) [Mass/Vol] 11.8 g/dL 11.4 - 15.2 g/dL [facility] Immature granulocytes (Bld) [#/Vol] 0.08 10*3/uL NINF - 0.08 K/uL [facility] Immature granulocytes/100 WBC (Bld) 0.8 % [facility] Interpretation and review of laboratory results Abnormal [facility] Lymphocytes (Bld) [#/Vol] 1.13 10*3/uL Low 1.16 - 3.51 K/uL [facility] Lymphocytes/100 WBC (Bld) 11.9 % [facility] MCH (RBC) [Entitic mass] 30.5 pg 25.9 - 33.9 pg [facility] MCHC (RBC) [Mass/Vol] 31.6 g/dL 31.4 - 35.9 g/dL [facility] MCV (RBC) [Entitic vol] 96.6 fL 79.6 - 97.7 fL [facility] Monocytes (Bld) [#/Vol] 0.47 10*3/uL 0.22 - 0.87 K/uL [facility] Monocytes/100 WBC (Bld) 4.9 % [facility] Neutrophils (Bld) [#/Vol] 7.13 10*3/uL 1.64 - 7.28 K/uL [facility] Nucleated RBC/100 WBC (Bld) [Ratio] 0 % [facility] Platelet mean volume (Bld) [Entitic vol] 9.4 fL 8.5 - 12.2 fL [facility] Platelets (Bld) [#/Vol] 511 10*3/uL High 150 - 393 K/uL [facility] RBC (Bld) [#/Vol] 3.87 10*6/uL Low [facility] Segmented neutrophils/100 WBC (Bld) 75.1 % [facility] WBC (Bld) [#/Vol] 9.5 10*3/uL 3.99 - 11.19 K/uL [facility] Basophils (Bld) [#/Vol] 0.10 10*3/uL Normal 0.00-0.15 [facility] Comment on above: Performed By: #### T YPEC #### [facility] (DEFAULT) [address] [address] Basophils/100 WBC (Bld) 1.1 % Normal [facility] Comment on above: Performed By: #### T YPEC #### [facility] (DEFAULT) [address] [address] DIFF STATUS Electronic Differential Normal [facility] Comment on above: Performed By: #### T YPEC #### [facility] (DEFAULT) [address] [address] Eosinophils (Bld) [#/Vol] 0.59 10*3/uL High 0.00-0.42 [facility] Comment on above: Performed By: #### T YPEC #### [facility] (DEFAULT) [address] [address] Eosinophils/100 WBC (Bld) 6.2 % Normal [facility] Comment on above: Performed By: #### T YPEC #### [facility] (DEFAULT) [address] [address] Hematocrit (Bld) [Volume fraction] 37.4 % Normal 34.9-44.3 [facility] Comment on above: Performed By: #### T YPEC #### [facility] (DEFAULT) [address] [address] Hemoglobin (Bld) [Mass/Vol] 11.8 g/dL Normal 11.4-15.2 [facility] Comment on above: Performed By: #### T YPEC #### [facility] (DEFAULT) [address] [address] Immature Grans % 0.8 % Normal [facility] Comment on above: Performed By: #### T YPEC #### [facility] (DEFAULT) [address] [place] [address] Immature Grans Absolute 0.08 K/uL Normal <=0.08 [facility] Comment on above: Performed By: #### T YPEC #### [facility] (DEFAULT) [address] [place] [address] Lymphocytes (Bld) [#/Vol] 1.13 10*3/uL Low 1.16-3.51 [facility] Comment on above: Performed By: #### T YPEC #### [facility] (DEFAULT) [address] [place] [address] Lymphocytes/100 WBC (Bld) 11.9 % Normal [facility] Comment on above: Performed By: #### T YPEC #### [facility] (DEFAULT) [address] [address] MCV (RBC) [Entitic vol] 96.6 fL Normal 79.6-97.7 [facility] Comment on above: Performed By: #### T YPEC #### [facility] (DEFAULT) [address] [place] [address] Mean Cell Hgb 30.5 pg Normal 25.9-33.9 [facility] Comment on above: Performed By: #### T YPEC #### [facility] (DEFAULT) [address] [address] Mean Cell Hgb Conc 31.6 g/dL Normal 31.4-35.9 [facility] Comment on above: Performed By: #### T YPEC #### [facility] (DEFAULT) [address] [place] [address] Monocytes (Bld) [#/Vol] 0.47 10*3/uL Normal 0.22-0.87 [facility] Comment on above: Performed By: #### T YPEC #### [facility] (DEFAULT) [address] [place] [address] Monocytes/100 WBC (Bld) 4.9 % Normal [facility] Comment on above: Performed By: #### T YPEC #### [facility] (DEFAULT) [address] [place] [address] Nucleated RBC 0.0 /100 WBC Normal <=0.2 [facility] Comment on above: Performed By: #### T YPEC #### [facility] (DEFAULT) [address] [place] [address] Platelet mean volume (Bld) [Entitic vol] 9.4 fL Normal 8.5-12.2 [facility] Comment on above: Performed By: #### T YPEC #### [facility] (DEFAULT) [address] [place] [address] Platelets (Bld) [#/Vol] 511 10*3/uL High 150-393 [facility] Comment on above: Performed By: #### T YPEC #### [facility] (DEFAULT) [address] [place] [address] RBC (Bld) [#/Vol] 3.87 10*6/uL Low 3.91-5.04 [facility] Comment on above: Performed By: #### T YPEC #### [facility] (DEFAULT) [address] [place] [address] RBC Distribution 12.5 % Normal 10.8-14.9 [facility] Comment on above: Performed By: #### T YPEC #### [facility] (DEFAULT) [address] [place] [address] Segs + Bands Auto 75.1 % Normal [facility] Comment on above: Performed By: #### T YPEC #### [facility] (DEFAULT) [address] [place] [address] Segs + Bands,Absolute Auto 7.13 K/uL Normal 1.64-7.28 [facility] Comment on above: Performed By: #### T YPEC #### [facility] (DEFAULT) [address] [place] [address] WBC (Bld) [#/Vol] 9.50 10*3/uL Normal 3.99-11.19 [facility] Comment on above: Performed By: #### T YPEC #### [facility] (DEFAULT) [address] [place] [address] CHEM 7 (LYTES,BUN,CREA,GLUC) on 11-03-2024 Anion gap [Moles/Vol] 12 mmol/L 7 - 17 mmol/L [facility] Chloride [Moles/Vol] 99 mmol/L 98 - 10 8 mmol/L [facility] CO2 [Moles/Vol] 31 mmol/L 21 - 31 mmol/L [facility] Creatinine [Mass/Vol] 0.75 mg/dL 0.50 - 1.20 mg/dL [facility] eGFR, CKD-EPI, Female 77 - PINF [facility] Glucose [Mass/Vol] 115 mg/dL 70 - 179 mg/dL [facility] Interpretation and review of laboratory results Abnormal [facility] Osmolality Calc [Osmolality] 296 [facility] Potassium [Moles/Vol] 4.6 mmol/L 3.5 - 5.0 mmol/L [facility] Sodium [Moles/Vol] 137 mmol/L 135 - 145 mmol/L [facility] Urea nitrogen [Mass/Vol] 31 mg/dL High 7 - 25 mg/dL [facility] Urea nitrogen/Creatinine [Mass ratio] 41 mg/mg [facility] Anion gap [Moles/Vol] 12 mmol/L Normal 7-17 [facility] Comment on above: Performed By: #### C HM7 #### [facility] (DEFAULT) [address] [place] [address] Chloride [Moles/Vol] 99 mmol/L Normal 98-108 [facility] Comment on above: Performed By: #### C HM7 #### [facility] (DEFAULT) [address] [place] [address] CO2 [Moles/Vol] 31 mmol/L Normal 21-31 [facility] Comment on above: Performed By: #### C HM7 #### [facility] (DEFAULT) [address] [place] [address]47 Creatinine [Mass/Vol] 0.75 mg/dL Normal 0.50-1.20 [facility] Comment on above: Performed By: #### C HM7 #### [facility] (DEFAULT) [address] [place] [address] GFR/1.73 sq M.predicted among non-blacks MDRD (S/P/Bld) [Vol rate/Area] 77 mL/min/{1.73_m2} Normal >=60 [facility] Comment on above: Result Comment: Repo rted eGFR is based on the CKD-EPI 2020 equation using creatinine, age, and sex. Performed By: #### C HM7 #### [facility] (DEFAULT) [address] [place] [address] Glucose [Mass/Vol] 115 mg/dL Normal Nonfastin g : 70-179 mg/dL; Fastin-99 [facility] Comment on above: Performed By: #### C HM7 #### [facility] (DEFAULT) [address] [place] [address] Osmolality [Osmolality] 296 mosm/kg Normal 278-305 [facility] Comment on above: Performed By: #### C HM7 #### [facility] (DEFAULT) [address] [place] [address] Potassium [Moles/Vol] 4.6 mmol/L Normal 3.5-5.0 [facility] Comment on above: Performed By: #### C HM7 #### [facility] (DEFAULT) [address] [place] [address] Sodium [Moles/Vol] 137 mmol/L Normal 135-145 [facility] Comment on above: Performed By: #### C HM7 #### [facility] (DEFAULT) [address] [place] [address] Urea nitrogen [Mass/Vol] 31 mg/dL High 7-25 [facility] Comment on above: Performed By: #### C HM7 #### [facility] (DEFAULT) [address] [place] [address] Urea nitrogen/Creatinine [Mass ratio] 41 mg/mg Normal [facility] Comment on above: Performed By: #### C HM7 #### [facility] (DEFAULT) [address] [place] [address] EXTRA MICROon 11-02-2024 [facility] URINALYSIS REFLEX TO CULTURE PERFORMABLEOrdered By: Na Engle on 11-02-2024 Appearance (U) Cloudy Abnormal Clear [facility] Bacteria LM Ql (Urine sed) PRESENT Abnormal ABSENT [facility] Color (U) Yellow Yellow [facility] Epithelial cells.squamous LM Ql (Urine sed) 0-2/hpf 0-2/hpf, 3-5/hpf = 1+ [facility] Glucose Test strip (U) [Mass/Vol] Negative Negative [facility] Interpretation and review of laboratory results [facility]ones ([facility] [Mass/Vol] [facility] Leukocyte esterase Test strip Ql (U) Moderate Abnormal [facility] Nitrite Ql (U) Negative [facility] pH (U) 6.5 [pH] 5.0 - 7.0 [facility] Protein (U) [Mass/Vol] Negative [facility] RBC (U) [#/Vol] Negative Negative [facility] RBC LM.HPF (Urine sed) [#/Area] 3-5 Abnormal [facility] Specific gravity (U) [Rel density] 1.016 1.001 - 1.035 [facility] Urobilinogen (U) [Mass/Vol] 0.2 E.U./dL 0.2 E.U/dL, 1.0 E.U/dL [facility] WBC LM.HPF (Urine sed) [#/Area] /[HPF] Abnormal [facility] URINALYSIS REFLEX TO CULTURE PERFORMABLEon 11-02-2024 Appearance (U) Cloudy Abnormal Clear [facility] Comment on above: Order Comment: For i ndwelling catheters, specimen collection is acceptable on catheter day 1 and 2 only. ? Performed By: #### A 1CB, [id number] #### [facility] (DEFAULT) [address] [address] Bacteria PRESENT Abnormal ABSENT [facility] Comment on above: Order Comment: For i ndwelling catheters, specimen collection is acceptable on catheter day 1 and 2 only. ? Performed By: #### A 1CB, [id number] #### [facility] (DEFAULT) [address] [address] Blood Urine Negative Normal Negative [facility] Comment on above: Order Comment: For i ndwelling catheters, specimen collection is acceptable on catheter day 1 and 2 only. ? Performed By: #### A 1CB, [id number] #### [facility] (DEFAULT) [address] [place] [address] Color (U) Yellow Normal Yellow [facility] Comment on above: Order Comment: For i ndwelling catheters, specimen collection is acceptable on catheter day 1 and 2 only. ? Performed By: #### A 1CB, [id number] #### [facility] (DEFAULT) [address] [place] [address] Glucose Ql (U) Negative Normal Negative [facility] Comment on above: Order Comment: For i ndwelling catheters, specimen collection is acceptable on catheter day 1 and 2 only. ? Performed By: #### A 1CB, [id number] #### [facility] (DEFAULT) [address] [place] [address] Ketones Ql (U) Negative Normal Negative [facility] Comment on above: Order Comment: For i ndwelling catheters, specimen collection is acceptable on catheter day 1 and 2 only. ? Performed By: #### A 1CB, [id number] #### [facility] (DEFAULT) [address] [place] [address] Leukocyte esterase Test strip Ql (U) Moderate Abnormal Negative [facility] Comment on above: Order Comment: For i ndwelling catheters, specimen collection is acceptable on catheter day 1 and 2 only. ? Performed By: #### A 1CB, [id number] #### [facility] (DEFAULT) [address] [place] [address] Nitrites Urine Negative Normal Negative [facility] Comment on above: Order Comment: For i ndwelling catheters, specimen collection is acceptable on catheter day 1 and 2 only. ? Performed By: #### A 1CB, [id number] #### [facility] (DEFAULT) [address] [place] [address] pH (U) 6.5 [pH] Normal 5.0-7.0 [facility] Comment on above: Order Comment: For i ndwelling catheters, specimen collection is acceptable on catheter day 1 and 2 only. ? Performed By: #### A 1CB, [id number] #### [facility] (DEFAULT) [address] [place] [address] Protein Urine Negative Normal Negative [facility] Comment on above: Order Comment: For i ndwelling catheters, specimen collection is acceptable on catheter day 1 and 2 only. ? Performed By: #### A 1CB, [id number] #### [facility] (DEFAULT) [address] [place] [address] RBC Urine 3-5 Abnormal 0-2 [facility] Comment on above: Order Comment: For i ndwelling catheters, specimen collection is acceptable on catheter day 1 and 2 only. ? Performed By: #### A 1CB, [id number] #### [facility] (DEFAULT) [address] [place] [address] Specific [place] Urine 1.016 Normal 1.001-1.03 5 [facility] Comment on above: Order Comment: For i ndwelling catheters, specimen collection is acceptable on catheter day 1 and 2 only. ? Performed By: #### A 1CB, [id number] #### [facility] (DEFAULT) [address] [place] [address] Squamous/Epithelial Cells, Urine 0-2/hpf Normal 0-2/hpf, 3-5/hpf = 1+ [facility] Comment on above: Order Comment: For i ndwelling catheters, specimen collection is acceptable on catheter day 1 and 2 only. ? Performed By: #### A 1CB, [id number] #### [facility] (DEFAULT) [address] [place] [address] Urobilinogen Urine 0.2 E.U./dL Normal 0.2 E.U/dL, 1.0 E.U/dL [facility] Comment on above: Order Comment: For i ndwelling catheters, specimen collection is acceptable on catheter day 1 and 2 only. ? Performed By: #### A 1CB, [id number] #### [facility] (DEFAULT) [address] [place] [address] WBC LM.HPF (Urine sed) [#/Area] /[HPF] Abnormal 0 - 5 [facility] Comment on above: Order Comment: For i ndwelling catheters, specimen collection is acceptable on catheter day 1 and 2 only. ? Performed By: #### A 1CB, [id number] #### [facility] (DEFAULT) [address] [place] [address] URINE CULTUREon 11-02-2024 Bacteria identified Cx Nom (U) Normal [facility] Comment on above: Order Comment: For i ndwelling catheters, specimen collection is acceptable on catheter day 1 and 2 only. Vargas top vacutainer. Urine must be to the fill line to process (4mls). If minimum volume, send urine in a yellow top vacutainer tube.For indwelling catheters, specimen collection is acceptable on catheter day 1 and 2 only. ?Routine cultures are evaluated for significant uropathogens >=100,000 CFU/mL. Result Comment: Grow th 189ENTEROCOCCUS FAECALISENTEROCOCCUS FAECALIS >100,000 CFU/mL Enterococcus faecalis Susceptibilities setup on 11/03/24 Repeat Susceptibilities setup on 11/05/24 Unable to obtain antibiogram. If additional testing is required, please contact the Microbiology laboratory within 3 days. Performed By: #### A 1CB, [id number] #### [facility] (DEFAULT) [address] [place] [address] XR ABDOMEN 1 VIEW PORTABLEon 11-02-2024 XR ABDOMEN 1 VIEW PORTABLE EXAM: XR ABDOMEN 1 VIEW PORTABLE, 11/02/2024 08:38 AM COMPARISON: XR ABDOMEN 1 VIEW PORTABLE November 01, 2024 CLINICAL INDICATIONS: Assess possible Ileus on ABD XR 11/01 FINDINGS: Tubes: Feeding tube tip likely in the gastric body. Urinary catheter. Bowel gas pattern: Gaseous distention of loops of small bowel and colon. Mild dilation of the sigmoid colon. Small amount of residual enteric contrast in the colon. No visible free air. Abnormal calcifications/Radiopacitie s: Calcified atherosclerotic disease. Bones: No acute abnormality. Levocurvature lumbar spine. Bilateral hip arthroplasties. Other findings: None. IMPRESSION: Mild findings suggesting an ileus. Normal [facility] XR Abdomen Single viewon RADIOLOGY RADIOLOGY [facility] Radiology Study observation (narrative) [facility] XR Abdomen Single viewOrdere d By: Ana Fuentes on 11-02-2024 [facility] Work Phone: GLUCOSE POCon 11-01-2024 Glucose [Mass/Vol] 110 mg/dL 70 - 179 mg/dL [facility] POC Sample Type [facility] Glucose [Mass/Vol] 122 mg/dL 70 - 179 mg/dL [facility] POC Sample Type CAPBL [facility] XR ABDOMEN 1 VIEW PORTABLEon 11-01-2024 XR ABDOMEN 1 VIEW PORTABLE EXAM: XR ABDOMEN 1 VIEW PORTABLE, 11/01/2024 13:27 PM COMPARISON: XR ABDOMEN 1 VIEW PORTABLE November 01, 2024 CLINICAL INDICATIONS: Confirm gastric small-bore feeding tube placement FINDINGS: Tubes: Enteric tube is seen in the stomach with its tip in the mid gastric body. This has been retracted from the prior exam. Advancement into a post pyloric location is recommended Bowel gas pattern: Some residual contrast in the colonic loops. No dilated loops of small bowel. No visible free air. Abnormal calcifications/Radiopacitie s: Atherosclerotic calcifications in the thoracoabdominal aorta Bones: Osseous structures are stable Other findings: None. IMPRESSION: Enteric tube is seen in the stomach with its tip in the mid gastric body. This has been retracted from the prior exam. Advancement into a post pyloric location is recommended Normal [facility] XR ABDOMEN 1 VIEW PORTABLE EXAM: XR ABDOMEN 1 VIEW PORTABLE, 11/01/2024 07:30 AM COMPARISON: XR ABDOMEN 1 VIEW PORTABLE October 29, 2024 CLINICAL INDICATIONS: Constipation FINDINGS: Tubes: Weighted enteric tube with tip likely in the proximal duodenum. Bowel gas pattern: Borderline gaseous dilatation of the colon. No definite small bowel dilatation. Faint residual oral contrast is seen within the colon. No visible free air. Abnormal calcifications/Radiopacitie s: Vascular calcifications. Bones: Bilateral hip arthroplasties. Degenerative changes and dextroscoliotic curvature of the spine. Other findings: None. IMPRESSION: 1. Borderline gaseous dilatation of the colon without small bowel dilatation, possibly ileus. 2. Weighted enteric tube with tip likely in the proximal duodenum. Normal [facility] XR Abdomen Single viewon RADIOLOGY RADIOLOGY [facility] Radiology Study observation (narrative) [facility] RADIOLOGY RADIOLOGY [facility] Radiology Study observation (narrative) [facility] XR Abdomen Single viewOrdere d By: Angel Alicea on 11-01-2024 [facility] Work Phone: CBC AND ELECTRONIC DIFFon Basophils (Bld) [#/Vol] 0.12 10*3/uL 0.00 - 0.15 K/uL [facility] Basophils/100 WBC (Bld) 1.7 % [facility] Differential cell count method Nom (Bld) Electronic Differential [facility] Eosinophils (Bld) [#/Vol] 0.56 10*3/uL High 0.00 - 0.42 K/uL [facility] Eosinophils/100 WBC (Bld) 7.8 % [facility] Erythrocyte distribution width (RBC) [Ratio] 12.5 % 10.8 - 14.9 % [facility] Hematocrit (Bld) [Volume fraction] 36.7 % 34.9 - 44.3 % [facility] Hemoglobin (Bld) [Mass/Vol] 11.7 g/dL 11.4 - 15.2 g/dL [facility] Immature granulocytes (Bld) [#/Vol] 0.06 10*3/uL NINF - 0.08 K/uL [facility] Immature granulocytes/100 WBC (Bld) 0.8 % [facility] Interpretation and review of laboratory results Abnormal [facility] Lymphocytes (Bld) [#/Vol] 1.1 10*3/uL Low 1.16 - 3.51 K/uL [facility] Lymphocytes/100 WBC (Bld) 15.3 % [facility] MCH (RBC) [Entitic mass] 30.9 pg 25.9 - 33.9 pg [facility] MCHC (RBC) [Mass/Vol] 31.9 g/dL 31.4 - 35.9 g/dL [facility] MCV (RBC) [Entitic vol] 96.8 fL 79.6 - 97.7 fL [facility] Monocytes (Bld) [#/Vol] 0.66 10*3/uL 0.22 - 0.87 K/uL [facility] Monocytes/100 WBC (Bld) 9.2 % [facility] Neutrophils (Bld) [#/Vol] 4.7 10*3/uL 1.64 - 7.28 K/uL [facility] Nucleated RBC/100 WBC (Bld) [Ratio] 0 % NINF [facility] Platelet mean volume (Bld) [Entitic vol] 9.2 fL 8.5 - 12.2 fL [facility] Platelets (Bld) [#/Vol] 458 10*3/uL High 150 - 393 K/uL [facility] RBC (Bld) [#/Vol] 3.79 10*6/uL Low [facility] Segmented neutrophils/100 WBC (Bld) 65.2 % [facility] WBC (Bld) [#/Vol] 7.2 10*3/uL 3.99 - 11.19 K/uL [facility] Basophils (Bld) [#/Vol] 0.12 10*3/uL Normal 0.00-0.15 [facility] Comment on above: Performed By: #### T YPEC #### [facility] (DEFAULT) [address] [address] Basophils/100 WBC (Bld) 1.7 % Normal [facility] Comment on above: Performed By: #### T YPEC #### [facility] (DEFAULT) [address] [address] DIFF STATUS Electronic Differential Normal [facility] Comment on above: Performed By: #### T YPEC #### [facility] (DEFAULT) [address] [place] [address] Eosinophils (Bld) [#/Vol] 0.56 10*3/uL High 0.00-0.42 [facility] Comment on above: Performed By: #### T YPEC #### [facility] (DEFAULT) [address] [place] [address] Eosinophils/100 WBC (Bld) 7.8 % Normal [facility] Comment on above: Performed By: #### T YPEC #### [facility] (DEFAULT) [address] [address] Hematocrit (Bld) [Volume fraction] 36.7 % Normal 34.9-44.3 [facility] Comment on above: Performed By: #### T YPEC #### [facility] (DEFAULT) [address] [address] Hemoglobin (Bld) [Mass/Vol] 11.7 g/dL Normal 11.4-15.2 [facility] Comment on above: Performed By: #### T YPEC #### [facility] (DEFAULT) [address] [place] [address] Immature Grans % 0.8 % Normal [facility] Comment on above: Performed By: #### T YPEC #### [facility] (DEFAULT) [address] [address] Immature Grans Absolute 0.06 K/uL Normal <=0.08 [facility] Comment on above: Performed By: #### T YPEC #### [facility] (DEFAULT) [address] [place] [address] Lymphocytes (Bld) [#/Vol] 1.10 10*3/uL Low 1.16-3.51 [facility] Comment on above: Performed By: #### T YPEC #### [facility] (DEFAULT) [address] [address] Lymphocytes/100 WBC (Bld) 15.3 % Normal [facility] Comment on above: Performed By: #### T YPEC #### [facility] (DEFAULT) [address] [address] MCV (RBC) [Entitic vol] 96.8 fL Normal 79.6-97.7 [facility] Comment on above: Performed By: #### T YPEC #### [facility] (DEFAULT) [address] [address] Mean Cell Hgb 30.9 pg Normal 25.9-33.9 [facility] Comment on above: Performed By: #### T YPEC #### [facility] (DEFAULT) [address] [address] Mean Cell Hgb Conc 31.9 g/dL Normal 31.4-35.9 [facility] Comment on above: Performed By: #### T YPEC #### [facility] (DEFAULT) [address] [address] Monocytes (Bld) [#/Vol] 0.66 10*3/uL Normal 0.22-0.87 [facility] Comment on above: Performed By: #### T YPEC #### [facility] (DEFAULT) [address] [address] Monocytes/100 WBC (Bld) 9.2 % Normal [facility] Comment on above: Performed By: #### T YPEC #### [facility] (DEFAULT) [address] [address] Nucleated RBC 0.0 /100 WBC Normal <=0.2 [facility] Comment on above: Performed By: #### T YPEC #### [facility] (DEFAULT) [address] [address] Platelet mean volume (Bld) [Entitic vol] 9.2 fL Normal 8.5-12.2 [facility] Comment on above: Performed By: #### T YPEC #### [facility] (DEFAULT) [address] [address] Platelets (Bld) [#/Vol] 458 10*3/uL High 150-393 [facility] Comment on above: Performed By: #### T YPEC #### [facility] (DEFAULT) [address] [address] RBC (Bld) [#/Vol] 3.79 10*6/uL Low 3.91-5.04 [facility] Comment on above: Performed By: #### T YPEC #### [facility] (DEFAULT) [address] [place] [address] RBC Distribution 12.5 % Normal 10.8-14.9 [facility] Comment on above: Performed By: #### T YPEC #### [facility] (DEFAULT) [address] [place] [address] Segs + Bands Auto 65.2 % Normal [facility] Comment on above: Performed By: #### T YPEC #### [facility] (DEFAULT) [address] [place] [address] Segs + Bands,Absolute Auto 4.70 K/uL Normal 1.64-7.28 [facility] Comment on above: Performed By: #### T YPEC #### [facility] (DEFAULT) [address] [place] [address] WBC (Bld) [#/Vol] 7.20 10*3/uL Normal 3.99-11.19 [facility] Comment on above: Performed By: #### T YPEC #### [facility] (DEFAULT) [address] [place] [address] CHEM 7 (LYTES,BUN,CREA,GLUC) on 10-31-2024 Anion gap [Moles/Vol] 12 mmol/L 7 - 17 mmol/L [facility] Chloride [Moles/Vol] 103 mmol/L 98 - 10 8 mmol/L [facility] CO2 [Moles/Vol] 28 mmol/L 21 - 31 mmol/L [facility] Creatinine [Mass/Vol] 0.75 mg/dL 0.50 - 1.20 mg/dL [facility] eGFR, CKD-EPI, Female 77 - PINF [facility] Glucose [Mass/Vol] 122 mg/dL 70 - 179 mg/dL [facility] Interpretation and review of laboratory results Abnormal [facility] Osmolality Calc [Osmolality] 299 [facility] Potassium [Moles/Vol] 4.6 mmol/L 3.5 - 5.0 mmol/L [facility] Sodium [Moles/Vol] 138 mmol/L 135 - 145 mmol/L [facility] Urea nitrogen [Mass/Vol] 33 mg/dL High 7 - 25 mg/dL [facility] Urea nitrogen/Creatinine [Mass ratio] 44 mg/mg [facility] Anion gap [Moles/Vol] 12 mmol/L Normal 7-17 [facility] Comment on above: Performed By: #### U [id number] #### [facility] (DEFAULT) [address] [place] [address] Chloride [Moles/Vol] 103 mmol/L Normal 98-108 [facility] Comment on above: Performed By: #### U [id number] #### [facility] (DEFAULT) [address] [place] [address] CO2 [Moles/Vol] 28 mmol/L Normal 21-31 [facility] Comment on above: Performed By: #### U [id number] #### [facility] (DEFAULT) [address] [place] [address] Creatinine [Mass/Vol] 0.75 mg/dL Normal 0.50-1.20 [facility] Comment on above: Performed By: #### U [id number] #### [facility] (DEFAULT) [address] [place] [address] GFR/1.73 sq M.predicted among non-blacks MDRD (S/P/Bld) [Vol rate/Area] 77 mL/min/{1.73_m2} Normal >=60 [facility] Comment on above: Result Comment: Repo rted eGFR is based on the CKD-EPI 2020 equation using creatinine, age, and sex. Performed By: #### U [id number] #### [facility] (DEFAULT) [address] [place] [address] Glucose [Mass/Vol] 122 mg/dL Normal Nonfastin g : 70-179 mg/dL; Fastin-99 [facility] Comment on above: Performed By: #### U [id number] #### [facility] (DEFAULT) [address] [place] [address] Osmolality [Osmolality] 299 mosm/kg Normal 278-305 [facility] Comment on above: Performed By: #### U [id number] #### [facility] (DEFAULT) [address] [place] [address] Potassium [Moles/Vol] 4.6 mmol/L Normal 3.5-5.0 [facility] Comment on above: Performed By: #### U [id number] #### [facility] (DEFAULT) [address] [place] [address] Sodium [Moles/Vol] 138 mmol/L Normal 135-145 [facility] Comment on above: Performed By: #### U [id number] #### [facility] (DEFAULT) [address] [place] [address] Urea nitrogen [Mass/Vol] 33 mg/dL High 7-25 [facility] Comment on above: Performed By: #### U [id number] #### [facility] (DEFAULT) [address] [place] [address] Urea nitrogen/Creatinine [Mass ratio] 44 mg/mg Normal [facility] Comment on above: Performed By: #### U [id number] #### [facility] (DEFAULT) [address] [place] [address] GLUCOSE POCon 10-31-2024 Glucose [Mass/Vol] 136 mg/dL 70 - 179 mg/dL [facility] POC Sample Type CAPBL [facility] Glucose [Mass/Vol] 146 mg/dL 70 - 179 mg/dL [facility] Glucose [Mass/Vol] 168 mg/dL 70 - 179 mg/dL [facility] Glucose [Mass/Vol] 138 mg/dL 70 - 179 mg/dL [facility] Glucose [Mass/Vol] 136 mg/dL 70 - 179 mg/dL [facility] Glucose [Mass/Vol] 108 mg/dL 70 - 179 mg/dL [facility] No Panel Informationon 10-31 POC Sample Type CAPBL [facility] POC Sample Type CAPBL [facility] GLUCOSE POCon 10-30-2024 Glucose [Mass/Vol] 129 mg/dL 70 - 179 mg/dL [facility] POC Sample Type [facility] Glucose [Mass/Vol] 137 mg/dL 70 - 179 mg/dL [facility] Glucose [Mass/Vol] 135 mg/dL 70 - 179 mg/dL [facility] Glucose [Mass/Vol] 144 mg/dL 70 - 179 mg/dL [facility] POC Sample Type [facility] No Panel Informationon 10-30 POC Sample Type CAPBL [facility] GLUCOSE POCon 10-29-2024 Glucose [Mass/Vol] 136 mg/dL 70 - 179 mg/dL [facility] POC Sample Type CAPBL [facility] Glucose [Mass/Vol] 133 mg/dL 70 - 179 mg/dL [facility] POC Sample Type CAPBL [facility] Glucose [Mass/Vol] 108 mg/dL 70 - 179 mg/dL [facility] Glucose [Mass/Vol] 148 mg/dL 70 - 179 mg/dL [facility] Glucose [Mass/Vol] 147 mg/dL 70 - 179 mg/dL [facility] Glucose [Mass/Vol] 141 mg/dL 70 - 179 mg/dL [facility] Glucose [Mass/Vol] 123 mg/dL 70 - 179 mg/dL [facility] No Panel Informationon 10-29 POC Sample Type CAPBL [facility] XR ABDOMEN 1 VIEW PORTABLEon 10-29-2024 XR ABDOMEN 1 VIEW PORTABLE EXAM: XR ABDOMEN 1 VIEW PORTABLE, 10/29/2024 08:36 AM COMPARISON: XR ABDOMEN 1 VIEW PORTABLE October 27, 2024 CLINICAL INDICATIONS: verify DHT placement FINDINGS: Tubes: Reading tube tip is in the distal stomach near the pylorus. Bowel gas pattern: Normal. There is dense contrast in normal caliber colon and distal small bowel from the previous modified barium swallow. Low pelvis is excluded. No visible free air. Abnormal calcifications/Radiopacitie s: Calcified abdominal aorta. Bones: No acute abnormality. Partially included bilateral prosthetic hips. Other findings: None. IMPRESSION: Feeding tube tip is in the distal stomach near the pylorus. Normal [facility] XR Abdomen Single viewon RADIOLOGY RADIOLOGY [facility] Radiology Study observation (narrative) [facility] XR Abdomen Single viewOrdere d By: Julianna Tapia on 10-29-2024 [facility] Work Phone: CBC AND ELECTRONIC DIFFon Basophils (Bld) [#/Vol] 0.1 10*3/uL 0.00 - 0.15 K/uL [facility] Basophils/100 WBC (Bld) 1.3 % [facility] Differential cell count method Nom (Bld) Electronic Differential [facility] Eosinophils (Bld) [#/Vol] 0.28 10*3/uL 0.00 - 0.42 K/uL [facility] Eosinophils/100 WBC (Bld) 3.8 % [facility] Erythrocyte distribution width (RBC) [Ratio] 12.5 % 10.8 - 14.9 % [facility] Hematocrit (Bld) [Volume fraction] 40.6 % 34.9 - 44.3 % [facility] Hemoglobin (Bld) [Mass/Vol] 12.8 g/dL 11.4 - 15.2 g/dL [facility] Immature granulocytes (Bld) [#/Vol] 0.09 10*3/uL High NINF - 0.08 K/uL [facility] Immature granulocytes/100 WBC (Bld) 1.2 % [facility] Interpretation and review of laboratory results Abnormal [facility] Lymphocytes (Bld) [#/Vol] 1.07 10*3/uL Low 1.16 - 3.51 K/uL [facility] Lymphocytes/100 WBC (Bld) 14.4 % [facility] MCH (RBC) [Entitic mass] 30.5 pg 25.9 - 33.9 pg [facility] MCHC (RBC) [Mass/Vol] 31.5 g/dL 31.4 - 35.9 g/dL [facility] MCV (RBC) [Entitic vol] 96.9 fL 79.6 - 97.7 fL [facility] Monocytes (Bld) [#/Vol] 0.57 10*3/uL 0.22 - 0.87 K/uL [facility] Monocytes/100 WBC (Bld) 7.7 % [facility] Neutrophils (Bld) [#/Vol] 5.3 10*3/uL 1.64 - 7.28 K/uL [facility] Nucleated RBC/100 WBC (Bld) [Ratio] 0 % NINF [facility] Platelet mean volume (Bld) [Entitic vol] 10.7 fL 8.5 - 12.2 fL [facility] Platelets (Bld) [#/Vol] 304 10*3/uL 150 - 393 K/uL [facility] RBC (Bld) [#/Vol] 4.19 10*6/uL [facility] Segmented neutrophils/100 WBC (Bld) 71.6 % [facility] WBC (Bld) [#/Vol] 7.41 10*3/uL 3.99 - 11.19 K/uL [facility] Basophils (Bld) [#/Vol] 0.10 10*3/uL Normal 0.00-0.15 [facility] Comment on above: Performed By: #### X M #### [facility] (DEFAULT) [address] [place] [address] Basophils/100 WBC (Bld) 1.3 % Normal [facility] Comment on above: Performed By: #### X M #### [facility] (DEFAULT) [address] [address] DIFF STATUS Electronic Differential Normal [facility] Comment on above: Performed By: #### X M #### [facility] (DEFAULT) [address] [address] Eosinophils (Bld) [#/Vol] 0.28 10*3/uL Normal 0.00-0.42 [facility] Comment on above: Performed By: #### X M #### [facility] (DEFAULT) [address] [address] Eosinophils/100 WBC (Bld) 3.8 % Normal [facility] Comment on above: Performed By: #### X M #### [facility] (DEFAULT) [address] [address] Hematocrit (Bld) [Volume fraction] 40.6 % Normal 34.9-44.3 [facility] Comment on above: Performed By: #### X M #### [facility] (DEFAULT) [address] [address] Hemoglobin (Bld) [Mass/Vol] 12.8 g/dL Normal 11.4-15.2 [facility] Comment on above: Performed By: #### X M #### [facility] (DEFAULT) [address] [address] Immature Grans % 1.2 % Normal [facility] Comment on above: Performed By: #### X M #### [facility] (DEFAULT) [address] [address] Immature Grans Absolute 0.09 K/uL High <=0.08 [facility] Comment on above: Performed By: #### X M #### [facility] (DEFAULT) [address] [address] Lymphocytes (Bld) [#/Vol] 1.07 10*3/uL Low 1.16-3.51 [facility] Comment on above: Performed By: #### X M #### [facility] (DEFAULT) [address] [place] [address] Lymphocytes/100 WBC (Bld) 14.4 % Normal [facility] Comment on above: Performed By: #### X M #### [facility] (DEFAULT) [address] [address] MCV (RBC) [Entitic vol] 96.9 fL Normal 79.6-97.7 [facility] Comment on above: Performed By: #### X M #### [facility] (DEFAULT) [address] [address] Mean Cell Hgb 30.5 pg Normal 25.9-33.9 [facility] Comment on above: Performed By: #### X M #### [facility] (DEFAULT) [address] [address] Mean Cell Hgb Conc 31.5 g/dL Normal 31.4-35.9 [facility] Comment on above: Performed By: #### X M #### [facility] [facility] (DEFAULT) [address] [address] Monocytes (Bld) [#/Vol] 0.57 10*3/uL Normal 0.22-0.87 [facility] Comment on above: Performed By: #### X M #### [facility] (DEFAULT) [address] [place] [address] Monocytes/100 WBC (Bld) 7.7 % Normal [facility] Comment on above: Performed By: #### X M #### [facility] (DEFAULT) [address] [place] [address] Nucleated RBC 0.0 /100 WBC Normal <=0.2 [facility] Comment on above: Performed By: #### X M #### U [facility] (DEFAULT) [address] [place] [address] Platelet mean volume (Bld) [Entitic vol] 10.7 fL Normal 8.5-12.2 [facility] Comment on above: Result Comment: This is an appended report. These results have been appended to a previously preliminary verified report. Performed By: #### X M #### [facility] (DEFAULT) [address] [place] [address] Platelets (Bld) [#/Vol] 304 10*3/uL Normal 150-393 [facility] Comment on above: Result Comment: Plat elet clumps noted on smear. Reported instrument value is acceptable This is an appended report. These results have been appended to a previously preliminary verified report. Performed By: #### X M #### [facility] (DEFAULT) [address] [place] [address] RBC (Bld) [#/Vol] 4.19 10*6/uL Normal 3.91-5.04 [facility] Comment on above: Performed By: #### X M #### [facility] (DEFAULT) [address] [address] RBC Distribution 12.5 % Normal 10.8-14.9 [facility] Comment on above: Performed By: #### X M #### [facility] (DEFAULT) [address] [place] [address] Segs + Bands Auto 71.6 % Normal [facility] Comment on above: Performed By: #### X M #### [facility] (DEFAULT) [address] [place] [address] Segs + Bands,Absolute Auto 5.30 K/uL Normal 1.64-7.28 [facility] Comment on above: Performed By: #### X M #### [facility] (DEFAULT) [address] [place] [address] WBC (Bld) [#/Vol] 7.41 10*3/uL Normal 3.99-11.19 [facility] Comment on above: Performed By: #### X M #### [facility] (DEFAULT) [address] [place] [address] CHEM 7 (LYTES,BUN,CREA,GLUC) on 10-28-2024 Anion gap [Moles/Vol] 14 mmol/L 7 - 17 mmol/L [facility] Chloride [Moles/Vol] 100 mmol/L 98 - 10 8 mmol/L [facility] CO2 [Moles/Vol] 27 mmol/L 21 - 31 mmol/L [facility] Creatinine [Mass/Vol] 0.81 mg/dL 0.50 - 1.20 mg/dL [facility] eGFR, CKD-EPI, Female 71 - PINF [facility] Glucose [Mass/Vol] 124 mg/dL 70 - 179 mg/dL [facility] Osmolality Calc [Osmolality] 292 [facility] Potassium [Moles/Vol] 4.6 mmol/L 3.5 - 5.0 mmol/L [facility] Sodium [Moles/Vol] 136 mmol/L 135 - 145 mmol/L [facility] Urea nitrogen [Mass/Vol] 25 mg/dL 7 - 25 mg/dL [facility] Urea nitrogen/Creatinine [Mass ratio] 31 mg/mg [facility] Anion gap [Moles/Vol] 14 mmol/L Normal 7-17 [facility] Comment on above: Performed By: #### C HM7 #### [facility] (DEFAULT) [address] [place] [address] Chloride [Moles/Vol] 100 mmol/L Normal 98-108 [facility] Comment on above: Performed By: #### Taylor HM7 #### Eli[facility] (DEFAULT) [address] [place] [address] CO2 [Moles/Vol] 27 mmol/L Normal 21-31 [facility] Comment on above: Performed By: #### Taylor HM7 #### [facility] (DEFAULT) [address] [place] [address] Creatinine [Mass/Vol] 0.81 mg/dL Normal 0.50-1.20 [facility] Comment on above: Performed By: #### Taylor HM7 #### [facility] (DEFAULT) [address] [place] [address] GFR/1.73 sq M.predicted among non-blacks MDRD (S/P/Bld) [Vol rate/Area] 71 mL/min/{1.73_m2} Normal >=60 [facility] Comment on above: Result Comment: Repo rted eGFR is based on the CKD-EPI 2020 equation using creatinine, age, and sex. Performed By: #### Taylor HM7 #### [facility] (DEFAULT) [address] [place] [address] Glucose [Mass/Vol] 124 mg/dL Normal Nonfastin g : 70-179 mg/dL; Fastin-99 [facility] Comment on above: Performed By: #### Taylor HM7 #### [facility] (DEFAULT) [address] [place] [address] Osmolality [Osmolality] 292 mosm/kg Normal 278-305 [facility] Comment on above: Performed By: #### Taylor HM7 #### [facility] (DEFAULT) [address] [address] Potassium [Moles/Vol] 4.6 mmol/L Normal 3.5-5.0 [facility] Comment on above: Performed By: #### Taylor HM7 #### U [facility] (DEFAULT) [address] [place] [address] Sodium [Moles/Vol] 136 mmol/L Normal 135-145 [facility] Comment on above: Performed By: #### C HM7 #### [facility] (DEFAULT) [address] [place] [address] Urea nitrogen [Mass/Vol] 25 mg/dL Normal 7-25 [facility] Comment on above: Performed By: #### C HM7 #### [facility] (DEFAULT) [address] [place] [address] Urea nitrogen/Creatinine [Mass ratio] 31 mg/mg Normal [facility] Comment on above: Performed By: #### C HM7 #### [facility] (DEFAULT) [address] [place] [address] URINE CULTUREOrdered By: Raad Nieto on 10-28-2024 Bacteria identified Cx Nom (Unsp spec) Growth [facility] Bacteria identified Cx Nom (Unsp spec) >10,000 CFU/mL Mixed microbes [facility] Bacteria identified Cx Nom (Unsp spec) Escherichia/Citrobacter like Abnormal [facility] Bacteria identified Cx Nom (Unsp spec) ENTEROCOCCUS FAECALIS Abnormal [facility] Bacteria identified Cx Nom (Unsp spec) Mixed skin davonte [facility] Interpretation and review of laboratory results Abnormal [facility] ECGOrdered By: Trinity de la o on 10-27-2024 [facility] Work Phone: GLUCOSE POCon 10-27-2024 Glucose [Mass/Vol] 102 mg/dL 70 - 179 mg/dL [facility] Glucose [Mass/Vol] 122 mg/dL 70 - 179 mg/dL [facility] Glucose [Mass/Vol] 115 mg/dL 70 - 179 mg/dL [facility] Glucose [Mass/Vol] 111 mg/dL 70 - 179 mg/dL [facility] Glucose [Mass/Vol] 126 mg/dL 70 - 179 mg/dL [facility] POC Sample Type CAPBL [facility] No Panel Informationon 10-27 POC Sample Type [facility] POC Sample Type CAPBL [facility] XR ABDOMEN 1 VIEW PORTABLEon 10-27-2024 XR ABDOMEN 1 VIEW PORTABLE EXAM: XR ABDOMEN 1 VIEW PORTABLE, 10/27/2024 14:58 PM COMPARISON: XR ABDOMEN 1 VIEW PORTABLE October 24, 2024 CLINICAL INDICATIONS: Small-bore feeding tube placement confirmation FINDINGS: Tubes: Feeding tube is seen coursing into the stomach looping backwards with its tip in the gastric fundus. Advancement into a postpyloric location is recommended Bowel gas pattern: Gas distended loops of colon with residual contrast in the right and transverse colon. No interval colonic or small bowel dilatation No visible free air. Abnormal calcifications/Radiopacitie s: Atherosclerotic calcifications in the thoracoabdominal aorta Bones: Osseous structures are stable with degenerative bone changes. Bilateral hip replacement status. Other findings: None. IMPRESSION: Feeding tube is seen coursing into the stomach looping backwards with its tip in the gastric fundus. Advancement into a postpyloric location is recommended Normal [facility] XR Abdomen Single viewon RADIOLOGY RADIOLOGY [facility] Radiology Study observation (narrative) [facility] XR Abdomen Single viewOrdere d By: Jason Garcia on 10-27-2024 [facility] Work Phone: EXTRA MICROon 10-26-2024 [facility] GLUCOSE POCon 10-26-2024 Glucose [Mass/Vol] 123 mg/dL 70 - 179 mg/dL [facility] POC Sample Type CAPBL [facility] Glucose [Mass/Vol] 150 mg/dL 70 - 179 mg/dL [facility] POC Sample Type [facility] Glucose [Mass/Vol] 136 mg/dL 70 - 179 mg/dL [facility] POC Sample Type CAPBL [facility] RF videography Hypopharynx a nd Esophagus Views W liquid and paste contrast PO during swallowingon 10-26-2024 RADIOLOGY RADIOLOGY [facility] Radiology Study observation (narrative) [facility] RF videography Hypopharynx a nd Esophagus Views W liquid and paste contrast PO during swallowingOrdered By: Sveta Morillo on 10-26-2024 [facility] Work Phone: SPEECH MODIFIED BARIUM SWALL on 10-26-2024 [facility] URINALYSIS REFLEX TO CULTURE PERFORMABLEOrdered By: Madhavi Lundberg on 10-26-2024 Appearance (U) Cloudy Abnormal Clear [facility] Bacteria LM Ql (Urine sed) PRESENT Abnormal ABSENT [facility] Color (U) Yellow Yellow [facility] Epithelial cells.squamous LM Ql (Urine sed) 0-2/hpf 0-2/hpf, 3-5/hpf = 1+ [facility] Glucose Test strip (U) [Mass/Vol] Negative Negative [facility] Interpretation and review of laboratory results Abnormal [facility] Ketones (U) [Mass/Vol] Negative Negative [facility] Leukocyte esterase Test strip Ql (U) Large Abnormal Negative [facility] Nitrite Ql (U) Positive Abnormal Negative [facility] pH (U) 6.5 [pH] 5.0 - 7.0 [facility] Protein (U) [Mass/Vol] Trace Abnormal Negative [facility] RBC (U) [#/Vol] Trace Abnormal Negative [facility] RBC LM.HPF (Urine sed) [#/Area] 3-5 Abnormal [facility] Specific gravity (U) [Rel density] 1.016 1.001 - 1.035 [facility] Urobilinogen (U) [Mass/Vol] 0.2 E.U./dL 0.2 E.U/dL, 1.0 E.U/dL [facility] WBC LM.HPF (Urine sed) [#/Area] /[HPF] Abnormal [facility] URINALYSIS REFLEX TO CULTURE PERFORMABLEon 10-26-2024 Appearance (U) Cloudy Abnormal Clear [facility] Comment on above: Order Comment: For i ndwelling catheters, specimen collection is acceptable on catheter day 1 and 2 only. ? Performed By: #### U [id number] #### [facility] (DEFAULT) [address] [place] [address] Bacteria PRESENT Abnormal ABSENT [facility] Comment on above: Order Comment: For i ndwelling catheters, specimen collection is acceptable on catheter day 1 and 2 only. ? Performed By: #### U [id number] #### [facility] (DEFAULT) [address] [place] [address] Blood Urine Trace Abnormal Negative [facility] Comment on above: Order Comment: For i ndwelling catheters, specimen collection is acceptable on catheter day 1 and 2 only. ? Performed By: #### U [id number] #### [facility] (DEFAULT) [address] [place] [address] Color (U) Yellow Normal Yellow [facility] Comment on above: Order Comment: For i ndwelling catheters, specimen collection is acceptable on catheter day 1 and 2 only. ? Performed By: #### U [id number] #### [facility] (DEFAULT) [address] [place] [address] Glucose Ql (U) Negative Normal Negative [facility] Comment on above: Order Comment: For i ndwelling catheters, specimen collection is acceptable on catheter day 1 and 2 only. ? Performed By: #### U [id number] #### [facility] (DEFAULT) [address] [place] [address] Ketones Ql (U) Negative Normal Negative [facility] Comment on above: Order Comment: For i ndwelling catheters, specimen collection is acceptable on catheter day 1 and 2 only. ? Performed By: #### U [id number] #### [facility] (DEFAULT) [address] [place] [address] Leukocyte esterase Test strip Ql (U) Large Abnormal Negative [facility] Comment on above: Order Comment: For i ndwelling catheters, specimen collection is acceptable on catheter day 1 and 2 only. ? Performed By: #### U [id number] #### [facility] (DEFAULT) [address] [place] [address] Nitrites Urine Positive Abnormal Negative [facility] Comment on above: Order Comment: For i ndwelling catheters, specimen collection is acceptable on catheter day 1 and 2 only. ? Performed By: #### U [id number] #### [facility] (DEFAULT) [address] [place] [address] pH (U) 6.5 [pH] Normal 5.0-7.0 [facility] Comment on above: Order Comment: For i ndwelling catheters, specimen collection is acceptable on catheter day 1 and 2 only. ? Performed By: #### U [id number] #### [facility] (DEFAULT) [address] [place] [address] Protein Urine Trace Abnormal Negative [facility] Comment on above: Order Comment: For i ndwelling catheters, specimen collection is acceptable on catheter day 1 and 2 only. ? Performed By: #### U [id number] #### [facility] (DEFAULT) [address] [place] [address] RBC Urine 3-5 Abnormal 0-2 [facility] Comment on above: Order Comment: For i ndwelling catheters, specimen collection is acceptable on catheter day 1 and 2 only. ? Performed By: #### U [id number] #### [facility] (DEFAULT) [address] [place] [address] Specific [place] Urine 1.016 Normal 1.001-1.03 5 [facility] Comment on above: Order Comment: For i ndwelling catheters, specimen collection is acceptable on catheter day 1 and 2 only. ? Performed By: #### U [id number] #### U [facility] (DEFAULT) [address] [address] Squamous/Epithelial Cells, Urine 0-2/hpf Normal 0-2/hpf, 3-5/hpf = 1+ [facility] Comment on above: Order Comment: For i ndwelling catheters, specimen collection is acceptable on catheter day 1 and 2 only. ? Performed By: #### U [id number] #### U [facility] (DEFAULT) [address] [address] Urobilinogen Urine 0.2 E.U./dL Normal 0.2 E.U/dL, 1.0 E.U/dL [facility] Comment on above: Order Comment: For i ndwelling catheters, specimen collection is acceptable on catheter day 1 and 2 only. ? Performed By: #### U [id number] #### U [facility] (DEFAULT) [address] [address] WBC LM.HPF (Urine sed) [#/Area] /[HPF] Abnormal 0 - 5 [facility] Comment on above: Order Comment: For i ndwelling catheters, specimen collection is acceptable on catheter day 1 and 2 only. ? Performed By: #### U [id number] #### [facility] (DEFAULT) [address] [address] URINE CULTUREon 10-26-2024 Bacteria identified Cx Nom (U) Normal [facility] Comment on above: Order Comment: For i ndwelling catheters, specimen collection is acceptable on catheter day 1 and 2 only. Vargas top vacutainer. Urine must be to the fill line to process (4mls). If minimum volume, send urine in a yellow top vacutainer tube. For indwelling catheters, specimen collection is acceptable on catheter day 1 and 2 only. ? Susceptibilities not routinely performed. Result Comment: Grow th [id number] MICROBESMIXED MICROBES >10,000 CFU/mL Mixed microbes 4696 Escherichia/Citrobacter like 189 Enterococcus faecalis 4474 Mixed skin davonte Multiple bacterial morphotypes present. Suggest appropriate recollection if clinically indicated. Performed By: #### U R #### U [facility] (DEFAULT) [address] [place] [address] XR FLUORO MODIFIED BARIUM SW ALLOW WITH SPEECHon 10-26-2024 XR FLUORO MODIFIED BARIUM SWALLOW WITH SPEECH EXAM: XR FLUORO MODIFIED BARIUM SWALLOW WITH SPEECH, 10/26/2024 13:50 PM COMPARISON: No prior studies available for comparison. CLINICAL INDICATIONS: dysphagia TECHNIQUE: Various consistencies of barium were given by mouth using video fluoroscopy, in conjunction with the speech language pathologist. TOTAL FLUORO TIME: 3.3 min FINDINGS: Pharyngeal Phase: Thin: - Laryngeal vestibule penetration occurs. - Aspiration below the vocal cords occurs. Mildly thick/nectar: - Laryngeal vestibule penetration occurs. - Aspiration below the vocal cords does not occur. Moderately thick/honey: Not given Pudding: - Laryngeal vestibule penetration does not occur. - Aspiration below the vocal cords does not occur. Solid: Not given Cervical Phase: Physiologic. Esophageal Follow Through: Not performed. IMPRESSION: Aspiration with thin liquid. Please see the speech language pathologist report for further details and dietary recommendations. Normal [facility] 102on 10-25-2024 102 HNO ID: [id number] Author: CARLYLE HUANG HDA Service: ? Author Type: ? Type: 102 Filed: 10/25/2024 11:43 Note Text: Code Status: Full Code Normal [facility] CBC AND ELECTRONIC DIFFon Basophils (Bld) [#/Vol] 0.14 10*3/uL 0.00 - 0.15 K/uL [facility] Basophils/100 WBC (Bld) 1.4 % [facility] Differential cell count method Nom (Bld) Electronic Differential [facility] Eosinophils (Bld) [#/Vol] 1.14 10*3/uL High 0.00 - 0.42 K/uL [facility] Eosinophils/100 WBC (Bld) 11.4 % [facility] Erythrocyte distribution width (RBC) [Ratio] 13 % 10.8 - 14.9 % [facility] Hematocrit (Bld) [Volume fraction] 37.4 % 34.9 - 44.3 % [facility] Hemoglobin (Bld) [Mass/Vol] 11.9 g/dL 11.4 - 15.2 g/dL [facility] Immature granulocytes (Bld) [#/Vol] 0.06 10*3/uL NINF - 0.08 K/uL [facility] Immature granulocytes/100 WBC (Bld) 0.6 % [facility] Interpretation and review of laboratory results Abnormal [facility] Lymphocytes (Bld) [#/Vol] 1.15 10*3/uL Low 1.16 - 3.51 K/uL [facility] Lymphocytes/100 WBC (Bld) 11.5 % [facility] MCH (RBC) [Entitic mass] 31.1 pg 25.9 - 33.9 pg [facility] MCHC (RBC) [Mass/Vol] 31.8 g/dL 31.4 - 35.9 g/dL [facility] MCV (RBC) [Entitic vol] 97.7 fL 79.6 - 97.7 fL [facility] Monocytes (Bld) [#/Vol] 0.88 10*3/uL High 0.22 - 0.87 K/uL [facility] Monocytes/100 WBC (Bld) 8.8 % [facility] Neutrophils (Bld) [#/Vol] 6.66 10*3/uL 1.64 - 7.28 K/uL [facility] Nucleated RBC/100 WBC (Bld) [Ratio] 0 % [facility] Platelet mean volume (Bld) [Entitic vol] 9.4 fL 8.5 - 12.2 fL [facility] Platelets (Bld) [#/Vol] 349 10*3/uL 150 - 393 K/uL [facility] RBC (Bld) [#/Vol] 3.83 10*6/uL [facility] Segmented neutrophils/100 WBC (Bld) 66.3 % [facility] WBC (Bld) [#/Vol] 10.03 10*3/uL 3.99 - 11.19 K/uL [facility] Basophils (Bld) [#/Vol] 0.14 10*3/uL Normal 0.00-0.15 [facility] Comment on above: Performed By: #### U [id number] #### [facility] (DEFAULT) [address] [place] [address] Basophils/100 WBC (Bld) 1.4 % Normal [facility] Comment on above: Performed By: #### U [id number] #### [facility] (DEFAULT) [address] [address] DIFF STATUS Electronic Differential Normal [facility] Comment on above: Performed By: #### U [id number] #### [facility] (DEFAULT) [address] [place] [address] Eosinophils (Bld) [#/Vol] 1.14 10*3/uL High 0.00-0.42 [facility] Comment on above: Performed By: #### U [id number] #### [facility] (DEFAULT) [address] [place] [address] Eosinophils/100 WBC (Bld) 11.4 % Normal [facility] Comment on above: Performed By: #### U [id number] #### [facility] (DEFAULT) [address] [place] [address] Hematocrit (Bld) [Volume fraction] 37.4 % Normal 34.9-44.3 [facility] Comment on above: Performed By: #### U [id number] #### [facility] (DEFAULT) [address] [place] [address] Hemoglobin (Bld) [Mass/Vol] 11.9 g/dL Normal 11.4-15.2 [facility] Comment on above: Performed By: #### U [id number] #### [facility] (DEFAULT) [address] [address] Immature Grans % 0.6 % Normal [facility] Comment on above: Performed By: #### U [id number] #### U [facility] (DEFAULT) [address] [address] Immature Grans Absolute 0.06 K/uL Normal <=0.08 [facility] Comment on above: Performed By: #### U [id number] #### U [facility] (DEFAULT) [address] [address] Lymphocytes (Bld) [#/Vol] 1.15 10*3/uL Low 1.16-3.51 [facility] Comment on above: Performed By: #### U [id number] #### U [facility] (DEFAULT) [address] [address] Lymphocytes/100 WBC (Bld) 11.5 % Normal [facility] Comment on above: Performed By: #### U [id number] #### U [facility] (DEFAULT) [address] [address] MCV (RBC) [Entitic vol] 97.7 fL Normal 79.6-97.7 [facility] Comment on above: Performed By: #### U [id number] #### [facility] (DEFAULT) [address] [address] Mean Cell Hgb 31.1 pg Normal 25.9-33.9 [facility] Comment on above: Performed By: #### U [id number] #### U [facility] (DEFAULT) [address] [address] Mean Cell Hgb Conc 31.8 g/dL Normal 31.4-35.9 [facility] Comment on above: Performed By: #### U [id number] #### U [facility] (DEFAULT) [address] [address] Monocytes (Bld) [#/Vol] 0.88 10*3/uL High 0.22-0.87 [facility] Comment on above: Performed By: #### U [id number] #### [facility] (DEFAULT) [address] [place] [address] Monocytes/100 WBC (Bld) 8.8 % Normal [facility] Comment on above: Performed By: #### U [id number] #### [facility] (DEFAULT) [address] [place] [address] Nucleated RBC 0.0 /100 WBC Normal <=0.2 [facility] Comment on above: Performed By: #### U [id number] #### [facility] (DEFAULT) [address] [place] [address] Platelet mean volume (Bld) [Entitic vol] 9.4 fL Normal 8.5-12.2 [facility] Comment on above: Performed By: #### U [id number] #### [facility] (DEFAULT) [address] [address] Platelets (Bld) [#/Vol] 349 10*3/uL Normal 150-393 [facility] Comment on above: Performed By: #### U [id number] #### [facility] (DEFAULT) [address] [address] RBC (Bld) [#/Vol] 3.83 10*6/uL Low 3.91-5.04 [facility] Comment on above: Performed By: #### U [id number] #### [facility] (DEFAULT) [address] [place] [address] RBC Distribution 13.0 % Normal 10.8-14.9 [facility] Comment on above: Performed By: #### U [id number] #### [facility] (DEFAULT) [address] [address] Segs + Bands Auto 66.3 % Normal [facility] Comment on above: Performed By: #### U [id number] #### U [facility] (DEFAULT) [address] [place] [address] Segs + Bands,Absolute Auto 6.66 K/uL Normal 1.64-7.28 [facility] Comment on above: Performed By: #### U [id number] #### [facility] (DEFAULT) [address] [place] [address] WBC (Bld) [#/Vol] 10.03 10*3/uL Normal 3.99-11.19 [facility] Comment on above: Performed By: #### U [id number] #### [facility] (DEFAULT) [address] [address] CHEM 7 (LYTES,BUN,CREA,GLUC) on 10-25-2024 Anion gap [Moles/Vol] 14 mmol/L 7 - 17 mmol/L [facility] Chloride [Moles/Vol] 102 mmol/L 98 - 10 8 mmol/L [facility] CO2 [Moles/Vol] 26 mmol/L 21 - 31 mmol/L [facility] Creatinine [Mass/Vol] 0.76 mg/dL 0.50 - 1.20 mg/dL [facility] eGFR, CKD-EPI, Female 76 - PINF [facility] Glucose [Mass/Vol] 124 mg/dL 70 - 179 mg/dL [facility] Interpretation and review of laboratory results Abnormal [facility] Osmolality Calc [Osmolality] 297 [facility] Potassium [Moles/Vol] 4.7 mmol/L 3.5 - 5.0 mmol/L [facility] Sodium [Moles/Vol] 137 mmol/L 135 - 145 mmol/L [facility] Urea nitrogen [Mass/Vol] 31 mg/dL High 7 - 25 mg/dL [facility] Urea nitrogen/Creatinine [Mass ratio] 41 mg/mg [facility] Anion gap [Moles/Vol] 14 mmol/L Normal 7-17 [facility] Comment on above: Performed By: #### U R #### [facility] (DEFAULT) [address] [place] [address] Chloride [Moles/Vol] 102 mmol/L Normal 98-108 [facility] Comment on above: Performed By: #### U R #### U [facility] (DEFAULT) [address] [place] [address] CO2 [Moles/Vol] 26 mmol/L Normal 21-31 [facility] Comment on above: Performed By: #### U R #### U [facility] (DEFAULT) [address] [place] [address] Creatinine [Mass/Vol] 0.76 mg/dL Normal 0.50-1.20 [facility] Comment on above: Performed By: #### U R #### [facility] (DEFAULT) [address] [address] GFR/1.73 sq M.predicted among non-blacks MDRD (S/P/Bld) [Vol rate/Area] 76 mL/min/{1.73_m2} Normal >=60 [facility] Comment on above: Result Comment: Repo rted eGFR is based on the CKD-EPI 2020 equation using creatinine, age, and sex. Performed By: #### U R #### U [facility] (DEFAULT) [address] [address] Glucose [Mass/Vol] 124 mg/dL Normal Nonfastin g : 70-179 mg/dL; Fastin-99 [facility] Comment on above: Performed By: #### U R #### U [facility] (DEFAULT) [address] [address] Osmolality [Osmolality] 297 mosm/kg Normal 278-305 [facility] Comment on above: Performed By: #### U R #### [facility] (DEFAULT) [address] [address] Potassium [Moles/Vol] 4.7 mmol/L Normal 3.5-5.0 [facility] Comment on above: Performed By: #### U R #### [facility] (DEFAULT) [address] [place] [address] Sodium [Moles/Vol] 137 mmol/L Normal 135-145 [facility] Comment on above: Performed By: #### U R #### [facility] (DEFAULT) [address] [place] [address] Urea nitrogen [Mass/Vol] 31 mg/dL High 7-25 [facility] Comment on above: Performed By: #### U R #### U [facility] (DEFAULT) [address] [place] [address] Urea nitrogen/Creatinine [Mass ratio] 41 mg/mg Normal [facility] Comment on above: Performed By: #### U R #### [facility] (DEFAULT) [address] [place] [address] GLUCOSE POCon 10-25-2024 Glucose [Mass/Vol] 132 mg/dL 70 - 179 mg/dL [facility] POC Sample Type CAPBL [facility] Glucose [Mass/Vol] 115 mg/dL 70 - 179 mg/dL [facility] POC Sample Type CAPBL [facility] URINE CULTUREon 10-25-2024 Bacteria identified Cx Nom (Unsp spec) No Growth [facility] EXTRA MICROon 10-24-2024 [facility] GLUCOSE POCon 10-24-2024 Glucose [Mass/Vol] 135 mg/dL 70 - 179 mg/dL [facility] Sample [facility] Glucose [Mass/Vol] 149 mg/dL 70 - 179 mg/dL [facility] POC Sample Type [facility] Glucose [Mass/Vol] 108 mg/dL 70 - 179 mg/dL [facility] POC Sample Type CAPBL [facility] Glucose [Mass/Vol] 148 mg/dL 70 - 179 mg/dL [facility] POC Sample Type CAPBL [facility] URINALYSIS REFLEX TO CULTURE PERFORMABLEOrdered By: Jennifer Sharma on 10-24-2024 Appearance (U) Cloudy Abnormal Clear [facility] Bacteria LM Ql (Urine sed) ABSENT ABSENT [facility] Color (U) Yellow Yellow [facility] Epithelial cells.squamous LM Ql (Urine sed) 0-2/hpf 0-2/hpf, 3-5/hpf = 1+ [facility] Glucose Test strip (U) [Mass/Vol] Negative Negative [facility] Hyaline casts (Urine sed) [#/Area] 0 - 2 Abnormal (none) /LPF [facility] Interpretation and review of laboratory results Abnormal [facility] Ketones (U) [Mass/Vol] Negative Negative [facility] Leukocyte esterase Test strip Ql (U) Moderate Abnormal Negative [facility] Mucus Ql (Urine sed) PRESENT [facility] Nitrite Ql (U) Negative Negative [facility] pH (U) 6.5 [pH] 5.0 - 7.0 [facility] Protein (U) [Mass/Vol] Trace Abnormal Negative [facility] RBC (U) [#/Vol] Negative Negative [facility] RBC LM.HPF (Urine sed) [#/Area] 11-25 Abnormal [facility] Specific gravity (U) [Rel density] 1.018 1.001 - 1.035 [facility] Urobilinogen (U) [Mass/Vol] 0.2 E.U./dL 0.2 E.U/dL, 1.0 E.U/dL [facility] WBC LM.HPF (Urine sed) [#/Area] /[HPF] Abnormal [facility] URINALYSIS REFLEX TO CULTURE PERFORMABLEon 10-24-2024 Appearance (U) Cloudy Abnormal Clear [facility] Comment on above: Order Comment: For i ndwelling catheters, specimen collection is acceptable on catheter day 1 and 2 only. ? Performed By: #### A 1CB, [id number] #### U [facility] (DEFAULT) [address] [place] [address] Bacteria ABSENT Normal ABSENT [facility] Comment on above: Order Comment: For i ndwelling catheters, specimen collection is acceptable on catheter day 1 and 2 only. ? Performed By: #### A 1CB, [id number] #### [facility] (DEFAULT) [address] [place] [address] Blood Urine Negative Normal Negative [facility] Comment on above: Order Comment: For i ndwelling catheters, specimen collection is acceptable on catheter day 1 and 2 only. ? Performed By: #### A 1CB, [id number] #### [facility] (DEFAULT) [address] [place] [address] Color (U) Yellow Normal Yellow [facility] Comment on above: Order Comment: For i ndwelling catheters, specimen collection is acceptable on catheter day 1 and 2 only. ? Performed By: #### A 1CB, [id number] #### [facility] (DEFAULT) [address] [place] [address] Glucose Ql (U) Negative Normal Negative [facility] Comment on above: Order Comment: For i ndwelling catheters, specimen collection is acceptable on catheter day 1 and 2 only. ? Performed By: #### A 1CB, [id number] #### U [facility] (DEFAULT) [address] [place] [address] Hyaline casts LM Ql (Urine sed) 0 - 2 Abnormal (none) [facility] Comment on above: Order Comment: For i ndwelling catheters, specimen collection is acceptable on catheter day 1 and 2 only. ? Performed By: #### A 1CB, [id number] #### [facility] (DEFAULT) [address] [place] [address] Ketones Ql (U) Negative Normal Negative [facility] Comment on above: Order Comment: For i ndwelling catheters, specimen collection is acceptable on catheter day 1 and 2 only. ? Performed By: #### A 1CB, [id number] #### U [facility] (DEFAULT) [address] [place] [address] Leukocyte esterase Test strip Ql (U) Moderate Abnormal Negative [facility] Comment on above: Order Comment: For i ndwelling catheters, specimen collection is acceptable on catheter day 1 and 2 only. ? Performed By: #### A 1CB, [id number] #### [facility] (DEFAULT) [address] [place] [address] Mucus Ql (Urine sed) PRESENT Normal [facility] Comment on above: Order Comment: For i ndwelling catheters, specimen collection is acceptable on catheter day 1 and 2 only. ? Performed By: #### A 1CB, [id number] #### [facility] (DEFAULT) [address] [place] [address] Nitrites Urine Negative Normal Negative [facility] Comment on above: Order Comment: For i ndwelling catheters, specimen collection is acceptable on catheter day 1 and 2 only. ? Performed By: #### A 1CB, [id number] #### [facility] (DEFAULT) [address] [place] [address] pH (U) 6.5 [pH] Normal 5.0-7.0 [facility] Comment on above: Order Comment: For i ndwelling catheters, specimen collection is acceptable on catheter day 1 and 2 only. ? Performed By: #### A 1CB, [id number] #### [facility] (DEFAULT) [address] [place] [address] Protein Urine Trace Abnormal Negative [facility] Comment on above: Order Comment: For i ndwelling catheters, specimen collection is acceptable on catheter day 1 and 2 only. ? Performed By: #### A 1CB, [id number] #### [facility] (DEFAULT) [address] [place] [address] RBC Urine 11-25 Abnormal 0-2 [facility] Comment on above: Order Comment: For i ndwelling catheters, specimen collection is acceptable on catheter day 1 and 2 only. ? Performed By: #### A 1CB, [id number] #### [facility] (DEFAULT) [address] [address] Specific [place] Urine 1.018 Normal 1.001-1.03 5 [facility] Comment on above: Order Comment: For i ndwelling catheters, specimen collection is acceptable on catheter day 1 and 2 only. ? Performed By: #### A 1CB, [id number] #### [facility] (DEFAULT) [address] [place] [address] Squamous/Epithelial Cells, Urine 0-2/hpf Normal 0-2/hpf, 3-5/hpf = 1+ [facility] Comment on above: Order Comment: For i ndwelling catheters, specimen collection is acceptable on catheter day 1 and 2 only. ? Performed By: #### A 1CB, [id number] #### [facility] (DEFAULT) [address] [address] Urobilinogen Urine 0.2 E.U./dL Normal 0.2 E.U/dL, 1.0 E.U/dL [facility] Comment on above: Order Comment: For i ndwelling catheters, specimen collection is acceptable on catheter day 1 and 2 only. ? Performed By: #### A 1CB, [id number] #### [facility] (DEFAULT) [address] [address] WBC LM.HPF (Urine sed) [#/Area] /[HPF] Abnormal 0 - 5 [facility] Comment on above: Order Comment: For i ndwelling catheters, specimen collection is acceptable on catheter day 1 and 2 only. ? Performed By: #### A 1CB, [id number] #### [facility] (DEFAULT) [address] [address] URINE CULTUREon 10-24-2024 Bacteria identified Cx Nom (U) No Growth Normal [facility] Comment on above: Order Comment: For i ndwelling catheters, specimen collection is acceptable on catheter day 1 and 2 only. Vargas top vacutainer. Urine must be to the fill line to process (4mls). If minimum volume, send urine in a yellow top vacutainer tube.For indwelling catheters, specimen collection is acceptable on catheter day 1 and 2 only. ?Routine cultures are evaluated for significant uropathogens >=100,000 CFU/mL. 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 Bowel gas pattern: Nonobstructive bowel gas pattern. Prominent rectal stool ball. No visible free air. Abnormal calcifications/Radiopacitie s: Vascular calcifications. Bones: Spinal degenerative changes. Bilateral hip arthroplasties. Other findings: None. IMPRESSION: Prominent rectal stool ball. Nonobstructive bowel gas pattern. Normal [facility] XR Abdomen Single viewon RADIOLOGY RADIOLOGY [facility] Radiology Study observation (narrative) [facility] XR Abdomen Single viewOrdere d By: Angel Conner on 10-24-2024 [facility] Work Phone: GLUCOSE POCon 10-23-2024 Glucose [Mass/Vol] 138 mg/dL 70 - 179 mg/dL [facility] POC Sample Type CAPBL [facility] Glucose [Mass/Vol] 113 mg/dL 70 - 179 mg/dL [facility] POC Sample Type CAPBL [facility] Glucose [Mass/Vol] 109 mg/dL 70 - 179 mg/dL [facility] POC Sample Type CAPBL [facility] Glucose [Mass/Vol] 142 mg/dL 70 - 179 mg/dL [facility] POC Sample Type CAPBL [facility] CALCIUMon 10-22-2024 Calcium [Mass/Vol] 9.6 mg/dL 8.6 - 10. 5 mg/dL [facility] Calcium [Mass/Vol] 9.6 mg/dL Normal 8.6-10.5 [facility] Comment on above: Performed By: #### C HM7 #### [facility] (DEFAULT) [address] [place] [address] CBC AND ELECTRONIC DIFFon Basophils (Bld) [#/Vol] 0.16 10*3/uL High 0.00 - 0.15 K/uL [facility] Basophils/100 WBC (Bld) 1.3 % [facility] Differential cell count method Nom (Bld) Electronic Differential [facility] Eosinophils (Bld) [#/Vol] 0.69 10*3/uL High 0.00 - 0.42 K/uL [facility] Eosinophils/100 WBC (Bld) 5.5 % [facility] Erythrocyte distribution width (RBC) [Ratio] 13.1 % 10.8 - 14.9 % [facility] Hematocrit (Bld) [Volume fraction] 43.3 % 34.9 - 44.3 % [facility] Hemoglobin (Bld) [Mass/Vol] 13.8 g/dL 11.4 - 15.2 g/dL [facility] Immature granulocytes (Bld) [#/Vol] 0.06 10*3/uL NINF - 0.08 K/uL [facility] Immature granulocytes/100 WBC (Bld) 0.5 % [facility] Interpretation and review of laboratory results Abnormal [facility] Lymphocytes (Bld) [#/Vol] 1.66 10*3/uL 1.16 - 3.51 K/uL [facility] Lymphocytes/100 WBC (Bld) 13.2 % [facility] MCH (RBC) [Entitic mass] 30.8 pg 25.9 - 33.9 pg [facility] MCHC (RBC) [Mass/Vol] 31.9 g/dL 31.4 - 35.9 g/dL [facility] MCV (RBC) [Entitic vol] 96.7 fL 79.6 - 97.7 fL [facility] Monocytes (Bld) [#/Vol] 1.09 10*3/uL High 0.22 - 0.87 K/uL [facility] Monocytes/100 WBC (Bld) 8.7 % [facility] Neutrophils (Bld) [#/Vol] 8.89 10*3/uL High 1.64 - 7.28 K/uL [facility] Nucleated RBC/100 WBC (Bld) [Ratio] 0 % NINF [facility] Platelet mean volume (Bld) [Entitic vol] 9.4 fL 8.5 - 12.2 fL [facility] Platelets (Bld) [#/Vol] 323 10*3/uL 150 - 393 K/uL [facility] RBC (Bld) [#/Vol] 4.48 10*6/uL [facility] Segmented neutrophils/100 WBC (Bld) 70.8 % [facility] WBC (Bld) [#/Vol] 12.55 10*3/uL High 3.99 - 11.19 K/uL [facility] Basophils (Bld) [#/Vol] 0.16 10*3/uL High 0.00-0.15 [facility] Comment on above: Performed By: #### U R #### [facility] (DEFAULT) [address] [address] Basophils/100 WBC (Bld) 1.3 % Normal [facility] Comment on above: Performed By: #### U R #### [facility] (DEFAULT) [address] [address] DIFF STATUS Electronic Differential Normal [facility] Comment on above: Performed By: #### U R #### [facility] (DEFAULT) [address] [address] Eosinophils (Bld) [#/Vol] 0.69 10*3/uL High 0.00-0.42 [facility] Comment on above: Performed By: #### U R #### [facility] (DEFAULT) [address] [address] Eosinophils/100 WBC (Bld) 5.5 % Normal [facility] Comment on above: Performed By: #### U R #### [facility] (DEFAULT) [address] [address] Hematocrit (Bld) [Volume fraction] 43.3 % Normal 34.9-44.3 [facility] Comment on above: Performed By: #### U R #### [facility] (DEFAULT) [address] [address] Hemoglobin (Bld) [Mass/Vol] 13.8 g/dL Normal 11.4-15.2 [facility] Comment on above: Performed By: #### U R #### [facility] (DEFAULT) [address] [address] Immature Grans % 0.5 % Normal [facility] Comment on above: Performed By: #### U R #### [facility] (DEFAULT) [address] [address] Immature Grans Absolute 0.06 K/uL Normal <=0.08 [facility] Comment on above: Performed By: #### U R #### [facility] (DEFAULT) [address] [address] Lymphocytes (Bld) [#/Vol] 1.66 10*3/uL Normal 1.16-3.51 [facility] Comment on above: Performed By: #### U R #### [facility] (DEFAULT) [address] [address] Lymphocytes/100 WBC (Bld) 13.2 % Normal [facility] Comment on above: Performed By: #### U R #### [facility] (DEFAULT) [address] [address] MCV (RBC) [Entitic vol] 96.7 fL Normal 79.6-97.7 [facility] Comment on above: Performed By: #### U R #### [facility] (DEFAULT) [address] [address] Mean Cell Hgb 30.8 pg Normal 25.9-33.9 [facility] Comment on above: Performed By: #### U R #### [facility] (DEFAULT) [address] [address] Mean Cell Hgb Conc 31.9 g/dL Normal 31.4-35.9 [facility] Comment on above: Performed By: #### U R #### [facility] (DEFAULT) [address] [address] Monocytes (Bld) [#/Vol] 1.09 10*3/uL High 0.22-0.87 [facility] Comment on above: Performed By: #### U R #### [facility] (DEFAULT) [address] [address] Monocytes/100 WBC (Bld) 8.7 % Normal [facility] Comment on above: Performed By: #### U R #### [facility] (DEFAULT) [address] [address] Nucleated RBC 0.0 /100 WBC Normal <=0.2 [facility] Comment on above: Performed By: #### U R #### [facility] (DEFAULT) [address] [address] Platelet mean volume (Bld) [Entitic vol] 9.4 fL Normal 8.5-12.2 [facility] Comment on above: Performed By: #### U R #### [facility] (DEFAULT) [address] [place] [address] Platelets (Bld) [#/Vol] 323 10*3/uL Normal 150-393 [facility] Comment on above: Performed By: #### U R #### [facility] (DEFAULT) [address] [place] [address] RBC (Bld) [#/Vol] 4.48 10*6/uL Normal 3.91-5.04 [facility] Comment on above: Performed By: #### U R #### [facility] (DEFAULT) [address] [place] [address] RBC Distribution 13.1 % Normal 10.8-14.9 [facility] Comment on above: Performed By: #### U R #### [facility] (DEFAULT) [address] [place] [address] Segs + Bands Auto 70.8 % Normal [facility] Comment on above: Performed By: #### U R #### [facility] [facility] (DEFAULT) [address] [place] [address] Segs + Bands,Absolute Auto 8.89 K/uL High 1.64-7.28 [facility] Comment on above: Performed By: #### U R #### [facility] (DEFAULT) [address] [place] [address] WBC (Bld) [#/Vol] 12.55 10*3/uL High 3.99-11.19 [facility] Comment on above: Performed By: #### U R #### [facility] (DEFAULT) [address] [place] [address] CHEM 7 (LYTES,BUN,CREA,GLUC) on 10-22-2024 Anion gap [Moles/Vol] 11 mmol/L 7 - 17 mmol/L [facility] Chloride [Moles/Vol] 104 mmol/L 98 - 10 8 mmol/L [facility] CO2 [Moles/Vol] 29 mmol/L 21 - 31 mmol/L [facility] Creatinine [Mass/Vol] 0.71 mg/dL 0.50 - 1.20 mg/dL [facility] eGFR, CKD-EPI, Female 83 - PINF [facility] Glucose [Mass/Vol] 112 mg/dL 70 - 179 mg/dL [facility] Osmolality Calc [Osmolality] 297 [facility] Potassium [Moles/Vol] 4.7 mmol/L 3.5 - 5.0 mmol/L [facility] Sodium [Moles/Vol] 139 mmol/L 135 - 145 mmol/L [facility] Urea nitrogen [Mass/Vol] 24 mg/dL 7 - 25 mg/dL [facility] Urea nitrogen/Creatinine [Mass ratio] 34 mg/mg [facility] Anion gap [Moles/Vol] 11 mmol/L Normal 7-17 [facility] Comment on above: Performed By: #### T YPEC #### [facility] (DEFAULT) [address] [address] Chloride [Moles/Vol] 104 mmol/L Normal 98-108 [facility] Comment on above: Performed By: #### T YPEC #### [facility] (DEFAULT) [address] [address] CO2 [Moles/Vol] 29 mmol/L Normal 21-31 [facility] Comment on above: Performed By: #### T YPEC #### [facility] (DEFAULT) [address] [address] Creatinine [Mass/Vol] 0.71 mg/dL Normal 0.50-1.20 [facility] Comment on above: Performed By: #### T YPEC #### [facility] (DEFAULT) [address] [address] GFR/1.73 sq M.predicted among non-blacks MDRD (S/P/Bld) [Vol rate/Area] 83 mL/min/{1.73_m2} Normal >=60 [facility] Comment on above: Result Comment: Repo rted eGFR is based on the CKD-EPI 2020 equation using creatinine, age, and sex. Performed By: #### T YPEC #### [facility] (DEFAULT) [address] [place] [address] Glucose [Mass/Vol] 112 mg/dL Normal Nonfastin g : 70-179 mg/dL; Fastin-99 [facility] Comment on above: Performed By: #### T YPEC #### [facility] (DEFAULT) [address] [place] [address] Osmolality [Osmolality] 297 mosm/kg Normal 278-305 [facility] Comment on above: Performed By: #### T YPEC #### [facility] (DEFAULT) [address] [place] [address]66 Potassium [Moles/Vol] 4.7 mmol/L Normal 3.5-5.0 [facility] Comment on above: Performed By: #### T YPEC #### [facility] (DEFAULT) [address] [place] [address]28 Sodium [Moles/Vol] 139 mmol/L Normal 135-145 [facility] Comment on above: Performed By: #### T YPEC #### [facility] (DEFAULT) [address] [place] [address]81 Urea nitrogen [Mass/Vol] 24 mg/dL Normal 7-25 [facility] Comment on above: Performed By: #### T YPEC #### [facility] (DEFAULT) [address] [place] [address] Urea nitrogen/Creatinine [Mass ratio] 34 mg/mg Normal [facility] Comment on above: Performed By: #### T YPEC #### [facility] (DEFAULT) [address] [place] [address]38 FLEXIBLE ENDOSCOPIC EVALUATI ON OF SWALLOWINGon 10-22-2024 RADIOLOGY FLEXIBLE ENDOSCOPIC EVALUATI ON OF SWALLOWINGOrdered By: Unassigned Pacs on 10-22-2024 [facility] Work Phone: GLUCOSE POCon 10-22-2024 Glucose [Mass/Vol] 154 mg/dL 70 - 179 mg/dL [facility] POC Sample Type CAPBL [facility] Glucose [Mass/Vol] 152 mg/dL 70 - 179 mg/dL [facility] POC Sample Type CAPBL [facility] Glucose [Mass/Vol] 119 mg/dL 70 - 179 mg/dL [facility] POC Sample Type CAPBL [facility] Glucose [Mass/Vol] 141 mg/dL 70 - 179 mg/dL [facility] POC Sample Type CAPBL [facility] MAGNESIUMon 10-22-2024 Magnesium [Mass/Vol] 2.2 mg/dL 1.6 - 2 .6 mg/dL [facility] Magnesium [Mass/Vol] 2.2 mg/dL Normal 1.6-2.6 [facility] Comment on above: Performed By: #### C HM7 #### [facility] (DEFAULT) [address] [place] [address] No Panel Informationon 10-22 [facility] Interpretation and review of laboratory results Normal [facility] PT,INR,PTTon 10-22-2024 aPTT Coag (PPP) [Time] 29.8 s [facility] INR Coag (Bld) [Relative time] 1 {INR} 0.9 - 1.1 [facility] Interpretation and review of laboratory results Normal [facility] PT Coag (PPP) [Time] 13 s [facility] aPTT Coag (Bld) [Time] 29.8 s Normal 24.0-34.3 [facility] Comment on above: Performed By: #### U [id number] #### [facility] (DEFAULT) [address] [place] [address] INR Coag (PPP) [Relative time] 1.0 {INR} Normal 0.9-1.1 [facility] Comment on above: Performed By: #### U [id number] #### [facility] (DEFAULT) [address] [place] [address] PT Coag (PPP) [Time] 13.0 s Normal 11.9-14.2 [facility] Comment on above: Performed By: #### U [id number] #### [facility] (DEFAULT) [address] [place] [address] CALCIUMon 10-21-2024 Calcium [Mass/Vol] 9 mg/dL 8.6 - 10. 5 mg/dL [facility] Calcium [Mass/Vol] 9.0 mg/dL Normal 8.6-10.5 [facility] Comment on above: Performed By: #### C HM7 #### [facility] (DEFAULT) [address] [place] [address] CBC AND ELECTRONIC DIFFon Basophils (Bld) [#/Vol] 0.13 10*3/uL 0.00 - 0.15 K/uL [facility] Basophils/100 WBC (Bld) 1.2 % [facility] Differential cell count method Nom (Bld) Electronic Differential [facility] Eosinophils (Bld) [#/Vol] 1.1 10*3/uL High 0.00 - 0.42 K/uL [facility] Eosinophils/100 WBC (Bld) 10.5 % [facility] Erythrocyte distribution width (RBC) [Ratio] 13.1 % 10.8 - 14.9 % [facility] Hematocrit (Bld) [Volume fraction] 44.6 % High 34.9 - 44.3 % [facility] Hemoglobin (Bld) [Mass/Vol] 14.3 g/dL 11.4 - 15.2 g/dL [facility] Immature granulocytes (Bld) [#/Vol] 0.04 10*3/uL NINF - 0.08 K/uL [facility] Immature granulocytes/100 WBC (Bld) 0.4 % [facility] Interpretation and review of laboratory results Abnormal [facility] Lymphocytes (Bld) [#/Vol] 1.53 10*3/uL 1.16 - 3.51 K/uL [facility] Lymphocytes/100 WBC (Bld) 14.7 % [facility] MCH (RBC) [Entitic mass] 31 pg 25.9 - 33.9 pg [facility] MCHC (RBC) [Mass/Vol] 32.1 g/dL 31.4 - 35.9 g/dL [facility] MCV (RBC) [Entitic vol] 96.5 fL 79.6 - 97.7 fL [facility] Monocytes (Bld) [#/Vol] 0.76 10*3/uL 0.22 - 0.87 K/uL [facility] Monocytes/100 WBC (Bld) 7.3 % [facility] Neutrophils (Bld) [#/Vol] 6.87 10*3/uL 1.64 - 7.28 K/uL [facility] Nucleated RBC/100 WBC (Bld) [Ratio] 0 % [facility] Platelet mean volume (Bld) [Entitic vol] 9.2 fL 8.5 - 12.2 fL [facility] Platelets (Bld) [#/Vol] 333 10*3/uL 150 - 393 K/uL [facility] RBC (Bld) [#/Vol] 4.62 10*6/uL [facility] Segmented neutrophils/100 WBC (Bld) 65.9 % [facility] WBC (Bld) [#/Vol] 10.43 10*3/uL 3.99 - 11.19 K/uL [facility] Basophils (Bld) [#/Vol] 0.13 10*3/uL Normal 0.00-0.15 [facility] Comment on above: Performed By: #### C HM7 #### [facility] (DEFAULT) [address] [place] [address] Basophils/100 WBC (Bld) 1.2 % Normal [facility] Comment on above: Performed By: #### C HM7 #### [facility] (DEFAULT) [address] [address] DIFF STATUS Electronic Differential Normal [facility] Comment on above: Performed By: #### C HM7 #### [facility] (DEFAULT) [address] [address] Eosinophils (Bld) [#/Vol] 1.10 10*3/uL High 0.00-0.42 [facility] Comment on above: Performed By: #### C HM7 #### [facility] (DEFAULT) [address] [address] Eosinophils/100 WBC (Bld) 10.5 % Normal [facility] Comment on above: Performed By: #### C HM7 #### [facility] (DEFAULT) [address] [address] Hematocrit (Bld) [Volume fraction] 44.6 % High 34.9-44.3 [facility] Comment on above: Performed By: #### C HM7 #### [facility] (DEFAULT) [address] [address] Hemoglobin (Bld) [Mass/Vol] 14.3 g/dL Normal 11.4-15.2 [facility] Comment on above: Performed By: #### C HM7 #### [facility] (DEFAULT) [address] [address] Immature Grans % 0.4 % Normal [facility] Comment on above: Performed By: #### C HM7 #### [facility] (DEFAULT) [address] [address] Immature Grans Absolute 0.04 K/uL Normal <=0.08 [facility] Comment on above: Performed By: #### C HM7 #### [facility] (DEFAULT) [address] [address] Lymphocytes (Bld) [#/Vol] 1.53 10*3/uL Normal 1.16-3.51 [facility] Comment on above: Performed By: #### C HM7 #### [facility] (DEFAULT) [address] [address] Lymphocytes/100 WBC (Bld) 14.7 % Normal [facility] Comment on above: Performed By: #### C HM7 #### [facility] (DEFAULT) [address] [address] MCV (RBC) [Entitic vol] 96.5 fL Normal 79.6-97.7 [facility] Comment on above: Performed By: #### C HM7 #### [facility] (DEFAULT) [address] [address] Mean Cell Hgb 31.0 pg Normal 25.9-33.9 [facility] Comment on above: Performed By: #### C HM7 #### [facility] (DEFAULT) [address] [address] Mean Cell Hgb Conc 32.1 g/dL Normal 31.4-35.9 [facility] Comment on above: Performed By: #### C HM7 #### [facility] (DEFAULT) [address] [address] Monocytes (Bld) [#/Vol] 0.76 10*3/uL Normal 0.22-0.87 [facility] Comment on above: Performed By: #### C HM7 #### [facility] (DEFAULT) [address] [address] Monocytes/100 WBC (Bld) 7.3 % Normal [facility] Comment on above: Performed By: #### C HM7 #### [facility] (DEFAULT) [address] [place] [address] Nucleated RBC 0.0 /100 WBC Normal <=0.2 [facility] Comment on above: Performed By: #### C HM7 #### [facility] (DEFAULT) [address] [place] [address] Platelet mean volume (Bld) [Entitic vol] 9.2 fL Normal 8.5-12.2 [facility] Comment on above: Performed By: #### C HM7 #### [facility] (DEFAULT) [address] [place] [address] Platelets (Bld) [#/Vol] 333 10*3/uL Normal 150-393 [facility] Comment on above: Performed By: #### C HM7 #### [facility] (DEFAULT) [address] [place] [address]75 RBC (Bld) [#/Vol] 4.62 10*6/uL Normal 3.91-5.04 [facility] Comment on above: Performed By: #### C HM7 #### [facility] (DEFAULT) [address] [place] [address]52 RBC Distribution 13.1 % Normal 10.8-14.9 [facility] Comment on above: Performed By: #### C HM7 #### [facility] (DEFAULT) [address] [place] [address] Segs + Bands Auto 65.9 % Normal [facility] Comment on above: Performed By: #### C HM7 #### [facility] (DEFAULT) [address] [place] [address] Segs + Bands,Absolute Auto 6.87 K/uL Normal 1.64-7.28 [facility] Comment on above: Performed By: #### C HM7 #### [facility] (DEFAULT) [address] [place] [address] WBC (Bld) [#/Vol] 10.43 10*3/uL Normal 3.99-11.19 [facility] Comment on above: Performed By: #### C HM7 #### [facility] (DEFAULT) [address] [place] [address] CHEM 7 (LYTES,BUN,CREA,GLUC) on 10-21-2024 Anion gap [Moles/Vol] 13 mmol/L 7 - 17 [facility] Chlor[facility] [Moles/Vol] 103 mmol/L 98 - 10 8 mmol/L [facility] CO2 [Moles/Vol] 26 mmol/L 21 - 31 [facility] Creatinine [Mass/Vol] 0.78 mg/dL 0.50 - 1.20 mg/dL [facility] eGFR, CKD-EPI, Female 74 - PINF [facility] Glucose [Mass/Vol] 106 mg/dL 70 - 179 mg/dL [facility] Osmolality Calc [Osmolality] 293 [facility] Potassium [Moles/Vol] 4.4 mmol/L 3.5 - 5.0 mmol/L [facility] Sodium [Moles/Vol] 138 mmol/L 135 - 145 mmol/L [facility] Urea nitrogen [Mass/Vol] 21 mg/dL 7 - 25 mg/dL [facility] Urea nitrogen/Creatinine [Mass ratio] 27 mg/mg [facility] Anion gap [Moles/Vol] 13 mmol/L Normal 7-17 [facility] Comment on above: Performed By: #### C HM7 #### [facility] (DEFAULT) [address] [place] [address] Chloride [Moles/Vol] 103 mmol/L Normal 98-108 [facility] Comment on above: Performed By: #### C HM7 #### [facility] (DEFAULT) [address] [place] [address] CO2 [Moles/Vol] 26 mmol/L Normal 21-31 [facility] Comment on above: Performed By: #### C HM7 #### [facility] (DEFAULT) [address] [place] [address] Creatinine [Mass/Vol] 0.78 mg/dL Normal 0.50-1.20 [facility] Comment on above: Performed By: #### C HM7 #### [facility] (DEFAULT) [address] [place] [address] GFR/1.73 sq M.predicted among non-blacks MDRD (S/P/Bld) [Vol rate/Area] 74 mL/min/{1.73_m2} Normal >=60 [facility] Comment on above: Result Comment: Repo rted eGFR is based on the CKD-EPI 2020 equation using creatinine, age, and sex. Performed By: #### C HM7 #### [facility] (DEFAULT) [address] [place] [address] Glucose [Mass/Vol] 106 mg/dL Normal Nonfastin g : 70-179 mg/dL; Fastin-99 [facility] Comment on above: Performed By: #### C HM7 #### [facility] (DEFAULT) [address] [place] [address] Osmolality [Osmolality] 293 mosm/kg Normal 278-305 [facility] Comment on above: Performed By: #### C HM7 #### [facility] (DEFAULT) [address] [place] [address] Potassium [Moles/Vol] 4.4 mmol/L Normal 3.5-5.0 [facility] Comment on above: Performed By: #### C HM7 #### [facility] (DEFAULT) [address] [place] [address] Sodium [Moles/Vol] 138 mmol/L Normal 135-145 [facility] Comment on above: Performed By: #### C HM7 #### [facility] (DEFAULT) [address] [place] [address] Urea nitrogen [Mass/Vol] 21 mg/dL Normal 7-25 [facility] Comment on above: Performed By: #### C HM7 #### [facility] (DEFAULT) [address] [place] [address] Urea nitrogen/Creatinine [Mass ratio] 27 mg/mg Normal [facility] Comment on above: Performed By: #### C HM7 #### [facility] (DEFAULT) [address] [place] [address] GLUCOSE POCon 10-21-2024 Glucose [Mass/Vol] 133 mg/dL 70 - 179 mg/dL [facility] POC Sample Type CAPBL [facility] Glucose [Mass/Vol] 115 mg/dL 70 - 179 mg/dL [facility] POC Sample Type CAPBL [facility] MAGNESIUMon 10-21-2024 Magnesium [Mass/Vol] 2.2 mg/dL 1.6 - 2 .6 mg/dL [facility] Magnesium [Mass/Vol] 2.2 mg/dL Normal 1.6-2.6 [facility] Comment on above: Performed By: #### C HM7 #### [facility] (DEFAULT) [address] [place] [address] No Panel Informationon 10-21 Interpretation and review of laboratory results Normal [facility] PT,INR,PTTon 10-21-2024 aPTT Coag (PPP) [Time] 29.1 s [facility] INR Coag (Bld) [Relative time] 1 {INR} 0.9 - 1.1 [facility] Interpretation and review of laboratory results Normal [facility] PT Coag (PPP) [Time] 13.5 s [facility] aPTT Coag (Bld) [Time] 29.1 s Normal 24.0-34.3 [facility] Comment on above: Performed By: #### U R #### [facility] (DEFAULT) [address] [place] [address] INR Coag (PPP) [Relative time] 1.0 {INR} Normal 0.9-1.1 [facility] Comment on above: Performed By: #### U R #### [facility] (DEFAULT) [address] [place] [address] PT Coag (PPP) [Time] 13.5 s Normal 11.9-14.2 [facility] Comment on above: Performed By: #### U R #### [facility] (DEFAULT) [address] [place] [address] CALCIUMon 10-20-2024 Calcium [Mass/Vol] 9.3 mg/dL 8.6 - 10. 5 mg/dL [facility] Calcium [Mass/Vol] 9.3 mg/dL Normal 8.6-10.5 [facility] Comment on above: Performed By: #### C A, CHM7, MGO ####[facility] (DEFAULT)[address] [place] [address] CBC AND ELECTRONIC DIFFon Basophils (Bld) [#/Vol] 0.15 10*3/uL 0.00 - 0.15 K/uL [facility] Basophils/100 WBC (Bld) 1.2 % [facility] Differential cell count method Nom (Bld) Electronic Differential [facility] Eosinophils (Bld) [#/Vol] 1.03 10*3/uL High 0.00 - 0.42 K/uL [facility] Eosinophils/100 WBC (Bld) 8.6 % [facility] Erythrocyte distribution width (RBC) [Ratio] 12.7 % 10.8 - 14.9 % [facility] Hematocrit (Bld) [Volume fraction] 41.7 % 34.9 - 44.3 % [facility] Hemoglobin (Bld) [Mass/Vol] 13.3 g/dL 11.4 - 15.2 g/dL [facility] Immature granulocytes (Bld) [#/Vol] 0.05 10*3/uL NINF - 0.08 K/uL [facility] Immature granulocytes/100 WBC (Bld) 0.4 % [facility] Interpretation and review of laboratory results Abnormal [facility] Lymphocytes (Bld) [#/Vol] 1.19 10*3/uL 1.16 - 3.51 K/uL [facility] Lymphocytes/100 WBC (Bld) 9.9 % [facility] MCH (RBC) [Entitic mass] 30.8 pg 25.9 - 33.9 pg [facility] MCHC (RBC) [Mass/Vol] 31.9 g/dL 31.4 - 35.9 g/dL [facility] MCV (RBC) [Entitic vol] 96.5 fL 79.6 - 97.7 fL [facility] Monocytes (Bld) [#/Vol] 0.75 10*3/uL 0.22 - 0.87 K/uL [facility] Monocytes/100 WBC (Bld) 6.2 % [facility] Neutrophils (Bld) [#/Vol] 8.84 10*3/uL High 1.64 - 7.28 K/uL [facility] Nucleated RBC/100 WBC (Bld) [Ratio] 0 % [facility] Platelet mean volume (Bld) [Entitic vol] 8.7 fL 8.5 - 12.2 fL [facility] Platelets (Bld) [#/Vol] 319 10*3/uL 150 - 393 K/uL [facility] RBC (Bld) [#/Vol] 4.32 10*6/uL [facility] Segmented neutrophils/100 WBC (Bld) 73.7 % [facility] WBC (Bld) [#/Vol] 12.01 10*3/uL High 3.99 - 11.19 K/uL [facility] Basophils (Bld) [#/Vol] 0.15 10*3/uL Normal 0.00-0.15 [facility] Comment on above: Performed By: #### L [id number] ####[facility] (DEFAULT)[address] [place] [address] Basophils/100 WBC (Bld) 1.2 % Normal [facility] Comment on above: Performed By: #### L [id number] ####[facility] (DEFAULT)[address] [place] [address] DIFF STATUS Electronic Differential Normal [facility] Comment on above: Performed By: #### L [id number] ####[facility] (DEFAULT)[address] [facility] [place] [address] Eosinophils (Bld) [#/Vol] 1.03 10*3/uL High 0.00-0.42 [facility] Comment on above: Performed By: #### L [id number] ####[facility] (DEFAULT)[address] [facility] [place] [address] Eosinophils/100 WBC (Bld) 8.6 % Normal [facility] Comment on above: Performed By: #### L [id number] ####[facility] (DEFAULT)[address] [facility] [place] [address] Hematocrit (Bld) [Volume fraction] 41.7 % Normal 34.9-44.3 [facility] Comment on above: Performed By: #### L [id number] ####[facility] (DEFAULT)[address] [facility] [place] [address] Hemoglobin (Bld) [Mass/Vol] 13.3 g/dL Normal 11.4-15.2 [facility] Comment on above: Performed By: #### L [id number] ####[facility] (DEFAULT)[address] [facility] [place] [address] Immature Grans % 0.4 % Normal [facility] Comment on above: Performed By: #### L [id number] ####[facility] (DEFAULT)[address] [facility] [place] [address] Immature Grans Absolute 0.05 K/uL Normal <=0.08 [facility] [facility] Comment on above: Performed By: #### L [id number] ####[facility] (DEFAULT)[address] [facility] [place] [address] Lymphocytes (Bld) [#/Vol] 1.19 10*3/uL Normal 1.16-3.51 [facility] Comment on above: Performed By: #### L [id number] ####[facility] (DEFAULT)[address] [facility] [place] [address] Lymphocytes/100 WBC (Bld) 9.9 % Normal [facility] Comment on above: Performed By: #### L [id number] ####[facility] (DEFAULT)[address] [facility] [place] [address] MCV (RBC) [Entitic vol] 96.5 fL Normal 79.6-97.7 [facility] Comment on above: Performed By: #### L [id number] ####[facility] (DEFAULT)[address] [facility] [facility] [place] [address] Mean Cell Hgb 30.8 pg Normal 25.9-33.9 [facility] Comment on above: Performed By: #### L [id number] ####[facility] (DEFAULT)[address] [place] [address] Mean Cell Hgb Conc 31.9 g/dL Normal 31.4-35.9 [facility] Comment on above: Performed By: #### L [id number] ####[facility] (DEFAULT)[address] [facility] [place] [address] Monocytes (Bld) [#/Vol] 0.75 10*3/uL Normal 0.22-0.87 [facility] Comment on above: Performed By: #### L [id number] ####[facility] (DEFAULT)[address] [facility] [place] [address] Monocytes/100 WBC (Bld) 6.2 % Normal [facility] Comment on above: Performed By: #### L [id number] ####[facility] (DEFAULT)[address] [facility] [place] [address] Nucleated RBC 0.0 /100 WBC Normal <=0.2 [facility] Comment on above: Performed By: #### L [id number] ####[facility] (DEFAULT)[address] [facility] [place] [address] Platelet mean volume (Bld) [Entitic vol] 8.7 fL Normal 8.5-12.2 [facility] Comment on above: Performed By: #### L [id number] ####[facility] (DEFAULT)[address] [place] [address] Platelets (Bld) [#/Vol] 319 10*3/uL Normal 150-393 [facility] Comment on above: Performed By: #### L [id number] ####[facility] (DEFAULT)[address] [place] [address] RBC (Bld) [#/Vol] 4.32 10*6/uL Normal 3.91-5.04 [facility] Comment on above: Performed By: #### L [id number] ####[facility] (DEFAULT)[address] [place] [address] RBC Distribution 12.7 % Normal 10.8-14.9 [facility] Comment on above: Performed By: #### L [id number] ####[facility] (DEFAULT)[address] [facility] [place] [address] Segs + Bands Auto 73.7 % Normal [facility] Comment on above: Performed By: #### L [id number] ####[facility] (DEFAULT)[address] [place] [address] Segs + Bands,Absolute Auto 8.84 K/uL High 1.64-7.28 [facility] Comment on above: Performed By: #### L [id number] ####[facility] (DEFAULT)[address] [place] [address] WBC (Bld) [#/Vol] 12.01 10*3/uL High 3.99-11.19 [facility] Comment on above: Performed By: #### L [id number] ####[facility] (DEFAULT)[address] [place] [address] CHEM 7 (LYTES,BUN,CREA,GLUC) on 10-20-2024 Anion gap [Moles/Vol] 15 mmol/L 7 - 17 mmol/L [facility] Chloride [Moles/Vol] 104 mmol/L 98 - 10 8 mmol/[facility] CO2 [Moles/Vol] 24 mmol/L 21 - 31 mmol/L [facility] Creatinine [Mass/Vol] 0.75 mg/dL 0.50 - 1.20 mg/dL [facility] eGFR, CKD-EPI, Female 77 - PINF [facility] Glucose [Mass/Vol] 132 mg/dL 70 - 179 mg/dL [facility] Osmolality Calc [Osmolality] 293 [facility] Potassium [Moles/Vol] 4.1 mmol/L 3.5 - 5.0 mmol/L [facility] Sodium [Moles/Vol] 139 mmol/L 135 - 145 mmol/L [facility] Urea nitrogen [Mass/Vol] 12 mg/dL 7 - 25 mg/dL [facility] Urea nitrogen/Creatinine [Mass ratio] 16 mg/mg [facility] Anion gap [Moles/Vol] 15 mmol/L Normal 7-17 [facility] Comment on above: Performed By: #### C A, CHM7, MGO ####[facility] (DEFAULT)[address] [place] [address] Chloride [Moles/Vol] 104 mmol/L Normal 98-108 [facility] Comment on above: Performed By: #### C A, CHM7, MGO ####[facility] (DEFAULT)[address] [place] [address] CO2 [Moles/Vol] 24 mmol/L Normal 21-31 [facility] Comment on above: Performed By: #### FLO Rogers, MGO ####[facility] (DEFAULT)[address] [facility] [place] [address] Creatinine [Mass/Vol] 0.75 mg/dL Normal 0.50-1.20 [facility] Comment on above: Performed By: #### FLO Rogers, MGO ####[facility] (DEFAULT)[address] [place] [address] GFR/1.73 sq M.predicted among non-blacks MDRD (S/P/Bld) [Vol rate/Area] 77 mL/min/{1.73_m2} Normal >=60 [facility] Comment on above: Result Comment: Repo rted eGFR is based on the CKD-EPI 2020 equation using creatinine, age, and sex. Performed By: #### FLO Rogers, MGO ####[facility] (DEFAULT)[address] [place] [address] Glucose [Mass/Vol] 132 mg/dL Normal Nonfastin g : 70-179 mg/dL; Fastin-99 [facility] Comment on above: Performed By: #### FLO Rogers, MGO ####[facility] (DEFAULT)[address] [place] [address], [place] [address] Osmolality [Osmolality] 293 mosm/kg Normal 278-305 [facility] Comment on above: Performed By: #### FLO Rogers, MGO ####[facility] (DEFAULT)[address] [facility] [place] [address] Potassium [Moles/Vol] 4.1 mmol/L Normal 3.5-5.0 [facility] Comment on above: Performed By: #### TY Rogers7, MGO ####[facility] (DEFAULT)[address] [place] [address] Sodium [Moles/Vol] 139 mmol/L Normal 135-145 [facility] Comment on above: Performed By: #### C TY Todd7, MGO ####[facility] (DEFAULT)[address] [place] [address] Urea nitrogen [Mass/Vol] 12 mg/dL Normal - [facility] Comment on above: Performed By: #### Taylor Todd, TY7, MGO ####[facility] (DEFAULT)[address] [place] [address] Urea nitrogen/Creatinine [Mass ratio] 16 mg/mg Normal [facility] Comment on above: Performed By: #### TY Rogers7, MGO ####[facility] (DEFAULT)[address] [place] [address] [facility] Telephone (HCSIND) BHARTIBEHZAD ([id number]) 1940 F Date Time Provider Department 10/20/24 MACK BRITO During your visit today, we recorded the following information about you: Mack Brito RN 10/20/2024 9:49 AM Signed [facility] [place]. 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 All home health services have been placed on HOLD. Thank you. Mack Brito RN [facility] Allergies As of Date: 10/20/2024 Noted Allergy Reaction ADHESIVE TAPE (ROSINS) 08/27/2011 2 - Rash BACTRIM (SULFAMETHOXAZOLE-TRIMETH*0 09/25/2018 2 - Rash MACROBID (NITROFURANTOIN MONOHYD/*09/25/2018 2 - Rash ZWKATIF-SNL-BVM REDUCTASE INHIBIT*10/06/2014 5 - Intolerance Comments: severe leg pain Date Reviewed: 10/13/2024 Reviewed by: Yola Nj COTA/Filippo - Fully Assessed Reason for Visit: Home Care [4073] Cmt: Notification of hospital admission. Prescriptions as of 10/20/2024 - acetaminophen (TYLENOL ARTHRITIS PAIN) 650 mg CR tablet Take 650 mg by mouth once daily. - Cholecalciferol, Vitamin D3, (VITAMIN D) 25 mcg (1,000 unit) cap Take 1,000 Units by mouth once daily. - lisinopril (ZESTRIL) 10 mg tablet Take 10 mg by mouth two times a day. - ZINC ORAL Take 50 mg by mouth once daily. - apixaban (ELIQUIS) 2.5 mg tab(s) Take 1 tablet by mouth two times a day. - metoprolol tartrate, short acting, (LOPRESSOR) 25 mg tablet Take 1 tablet by mouth two times a day. - cyanocobalamin, vitamin B-12, 500 mcg chew Take 1 tablet by mouth once daily. - estradiol (ESTRACE) 0.01 % (0.1 mg/gram) vaginal cream Apply pea-sized amount to perineum and 1 applicator vaginally Fri, Fri, Fri for atrophic vaginitis. - TURMERIC ORAL Take 1 tablet by mouth once daily. Patient should start on September 22, 2024. - CAPSICUM, CAYENNE, ORAL Take 1 capsule by mouth once daily. Patient should start on September 22, 2024. - FLAXSEED OIL ORAL Take 1 capsule by mouth once daily. Patient should start on September 22, 2024. - GARLIC ORAL Take 1 tablet by mouth once daily. Patient should start on September 22, 2024. - cranberry fruit extract (CRANBERRY ORAL) Take 650 mg by mouth once daily. - LACTOBACILLUS ACIDOPHILUS (PROBIOTIC ACIDOPHILUS ORAL) Take 1 capsule by mouth once daily. Patient should start on September 22, 2024. - multivitamin ORAL tablet Take 1 tablet by mouth once daily. Problem List As Of Date 10/20/2024 Noted Resolved Trigger ring finger of right hand [M65.341] 08/15/2016 Injury of extensor tendon of hand [S66.909A] 08/15/2016 Spontaneous rupture of extensor tendon of left *09/23/2016 Acquired trigger finger [M65.30] 12/10/2016 Chronic renal insufficiency, stage 3 (moderate)*02/27/2017 Vitamin D deficiency [E55.9] 02/27/2017 DDD (degenerative disc disease), cervical [M50.*02/27/2017 Primary osteoarthritis of right hip [M16.11] 02/27/2017 Iatrogenic [place]'s disease (HCC) [OME5048] 07/28/2017 07/06/2018 Collagenous colitis [K52.831] 12/21/2018 IBS (irritable bowel syndrome) [K58.9] 12/21/2018 Hiatal hernia [K44.9] 09/11/2020 Fall from standing [W19.XXXA] 06/05/2021 Rotator cuff tear arthropathy, left [M75.102, M*10/29/2021 Paroxysmal atrial fibrillation (HCC) [I48.0] 04/11/2022 Primary hypertension [I10] 12/30/2022 Acute pain of right shoulder [M25.511] 04/16/2023 Severe pain of left shoulder [M25.512] 04/16/2023 Cervicalgia [M54.2] 04/16/2023 Encounter Status:Closed by MACK BRITO on 10/20/24 Normal [facility] GLUCOSE POCon 10-20-2024 Glucose [Mass/Vol] 121 mg/dL 70 - 179 mg/dL [facility] POC [facility]ucose [Mass/Vol] 107 mg/dL 70 - 179 mg/dL [facility] POC [facility] Glucose [Mass/Vol] 133 mg/dL 70 - 179 mg/dL [facility] POC Sample Type CAP[facility] Glucose [Mass/Vol] 124 mg/dL 70 - 179 mg/dL [facility] POC Sample Type [facility]BL [facility] MAGNESIUMon 10-20-2024 Magnesium [Mass/Vol] 2.5 mg/dL 1.6 - 2 .6 mg/dL [facility] Magnesium [Mass/Vol] 2.5 mg/dL Normal 1.6-2.6 [facility] Comment on above: Performed By: #### C A, CHM7, MGO ####[facility] (DEFAULT)[address] [address] No Panel Informationon 10-20 Interpretation and review of laboratory results Normal [facility] PT,INR,PTTon 10-20-2024 aPTT Coag (PPP) [Time] 28.1 s [facility] INR Coag (Bld) [Relative time] 1.1 {INR} 0.9 - 1.1 [facility] Interpretation and review of laboratory results Abnormal [facility] PT Coag (PPP) [Time] 14.5 s High [facility] aPTT Coag (Bld) [Time] 28.1 s Normal 24.0-34.3 [facility] Comment on above: Performed By: #### U R #### [facility] (DEFAULT) [address] [place] [address] INR Coag (PPP) [Relative time] 1.1 {INR} Normal 0.9-1.1 [facility] Comment on above: Performed By: #### U R #### [facility] (DEFAULT) [address] [place] [address] PT Coag (PPP) [Time] 14.5 s High 11.9-14.2 [facility] Comment on above: Performed By: #### U R #### [facility] (DEFAULT) [address] [place] [address] CALCIUMon 10-19-2024 Calcium [Mass/Vol] 9.0 mg/dL Normal 8.6-10.5 [facility] Comment on above: Performed By: #### T YPEC #### [facility] (DEFAULT) [address] [place] [address] CBC AND ELECTRONIC DIFFon Erythrocyte distribution width (RBC) [Ratio] 12.8 % 10.8 - 14.9 % [facility] Hematocrit (Bld) [Volume fraction] 37.6 % 34.9 - 44.3 % [facility] Hemoglobin (Bld) [Mass/Vol] 12.1 g/dL 11.4 - 15.2 g/dL [facility] Interpretation and review of laboratory results Normal [facility] MCH (RBC) [Entitic mass] 30.9 pg 25.9 - 33.9 pg [facility] MCHC (RBC) [Mass/Vol] 32.2 g/dL 31.4 - 35.9 g/dL [facility] MCV (RBC) [Entitic vol] 96.2 fL 79.6 - 97.7 fL [facility] Platelet mean volume (Bld) [Entitic vol] 8.7 fL 8.5 - 12.2 fL [facility] Platelets (Bld) [#/Vol] 285 10*3/uL 150 - 393 K/uL [facility] RBC (Bld) [#/Vol] 3.91 10*6/uL [facility] WBC (Bld) [#/Vol] 10.12 10*3/uL 3.99 - 11.19 K/uL [facility] Hematocrit (Bld) [Volume fraction] 37.6 % Normal 34.9-44.3 [facility] Comment on above: Performed By: #### L [id number] #### [facility] (DEFAULT) [address] [place] [address] Hemoglobin (Bld) [Mass/Vol] 12.1 g/dL Normal 11.4-15.2 [facility] Comment on above: Performed By: #### L [id number] #### [facility] (DEFAULT) [address] [place] [address] MCV (RBC) [Entitic vol] 96.2 fL Normal 79.6-97.7 [facility] Comment on above: Performed By: #### L AB980 #### [facility] (DEFAULT) [address] [address] Mean Cell Hgb 30.9 pg Normal 25.9-33.9 [facility] Comment on above: Performed By: #### L AB980 #### [facility] (DEFAULT) [address] [address] Mean Cell Hgb Conc 32.2 g/dL Normal 31.4-35.9 [facility] Comment on above: Performed By: #### L AB980 #### [facility] (DEFAULT) [address] [address] Platelet mean volume (Bld) [Entitic vol] 8.7 fL Normal 8.5-12.2 [facility] Comment on above: Performed By: #### L AB980 #### [facility] (DEFAULT) [address] [address] Platelets (Bld) [#/Vol] 285 10*3/uL Normal 150-393 [facility] Comment on above: Performed By: #### L AB980 #### [facility] (DEFAULT) [address] [address] RBC (Bld) [#/Vol] 3.91 10*6/uL Normal 3.91-5.04 [facility] Comment on above: Performed By: #### L AB980 #### [facility] (DEFAULT) [address] [address] RBC Distribution 12.8 % Normal 10.8-14.9 [facility] Comment on above: Performed By: #### L AB980 #### [facility] (DEFAULT) [address] [address] WBC (Bld) [#/Vol] 10.12 10*3/uL Normal 3.99-11.19 [facility] Comment on above: Performed By: #### L AB980 #### [facility] (DEFAULT) [address] [place] [address] CHEM 7 (LYTES,BUN,CREA,GLUC) on 10-19-2024 Anion gap [Moles/Vol] 14 mmol/L Normal 7-17 [facility] Comment on above: Performed By: #### T YPEC #### [facility] (DEFAULT) [address] [place] [address] Chloride [Moles/Vol] 104 mmol/L Normal 98-108 [facility] Comment on above: Performed By: #### T YPEC #### [facility] (DEFAULT) [address] [place] [address] CO2 [Moles/Vol] 26 mmol/L Normal 21-31 [facility] Comment on above: Performed By: #### T YPEC #### [facility] (DEFAULT) [address] [place] [address] Creatinine [Mass/Vol] 0.73 mg/dL Normal 0.50-1.20 [facility] Comment on above: Performed By: #### T YPEC #### [facility] (DEFAULT) [address] [place] [address] GFR/1.73 sq M.predicted among non-blacks MDRD (S/P/Bld) [Vol rate/Area] 80 mL/min/{1.73_m2} Normal >=60 [facility] Comment on above: Result Comment: Repo rted eGFR is based on the CKD-EPI 2020 equation using creatinine, age, and sex. Performed By: #### T YPEC #### [facility] (DEFAULT) [address] [place] [address] Glucose [Mass/Vol] 145 mg/dL Normal Nonfastin g : 70-179 mg/dL; Fastin-99 [facility] Comment on above: Performed By: #### T YPEC #### [facility] (DEFAULT) [address] [place] [address] Osmolality [Osmolality] 295 mosm/kg Normal 278-305 [facility] Comment on above: Performed By: #### T YPEC #### [facility] (DEFAULT) [address] [place] [address] Potassium [Moles/Vol] 3.7 mmol/L Normal 3.5-5.0 [facility] Comment on above: Performed By: #### T YPEC #### [facility] (DEFAULT) [address] [place] [address] Sodium [Moles/Vol] 140 mmol/L Normal 135-145 [facility] Comment on above: Performed By: #### T YPEC #### [facility] (DEFAULT) [address] [place] [address] Urea nitrogen [Mass/Vol] 12 mg/dL Normal 7-25 [facility] Comment on above: Performed By: #### T YPEC #### [facility] (DEFAULT) [address] [place] [address] Urea nitrogen/Creatinine [Mass ratio] 16 mg/mg Normal [facility] Comment on above: Performed By: #### T YPEC #### [facility] (DEFAULT) [address] [place] [address] HEAD WITHOUT CONTRASTon 0 10-19-2024 CT HEAD WITHOUT CONTRAST EXAM: CT HEAD WITHOUT CONTRAST, 10/19/2024 10:51 PM COMPARISON: CT HEAD WITHOUT CONTRAST October 18, 2024, CT HEAD (OUTSIDE IMAGE) October 18, 2024, CT STROKE HEAD-STROKE ALERT ONLY October 18, 2024, MRI BRAIN STROKE WITH AND WITHOUT CONTRAST October 19, 2024 CLINICAL INDICATIONS: 84 years Female change in exam, worsening R weakness. Admitted for ICH RELEVANT CLINICAL HISTORY: TECHNIQUE: A series of transaxial computerized tomographic images are obtained from base of skull to vertex without intravenous contrast. Axial whole-head and thin section posterior fossa slices are provided. Reformats: Sagittal and coronal. FINDINGS: There is mild motion. Findings have not significantly changed compared to prior. Stable left thalamic intraparenchymal hematoma. Surrounding edema is mildly increased from prior examination. No significant mass effect. Again seen is a wedge-shaped hypodensity left MCA territory likely related to chronic infarct given the MRI findings. Underlying chronic small vessel ischemic disease. Punctate infarcts were better seen on MRI. There is no abnormal extracerebral collection. The ventricles are unchanged in size without hydrocephalus. There is no mass effect or midline shift. Calvaria and skull base appear intact. Visualized paranasal sinuses show no air-fluid levels. Bilateral cataract surgery is noted. Atherosclerosis at the skull base. IMPRESSION: Stable left thalamic parenchymal hematoma with mildly increased edema. No significant mass effect Normal [facility] CT Head WO contraston 2024 RADIOLOGY RADIOLOGY [facility]3] Radiology Study observation (narrative) [facility] Cardiac echo study Procedure Ordered By: Alfredito Rodriguez on 10-19-2024 Ao ASC [facility] 2.22 cm[facility]: Ao peak jeri 1.77 m/s [facility] Work Phone: Ao SOV index 2.12 cm/m2 [facility] Work Phone: Ao STJ index 1.59 cm/m2 [facility] Work Phone: [phone] Ao VTI 39.74 cm [facility] Work Phone: Ascending aorta 3.39 [facility] Work [facility]: AV LVOT peak gradient 6 mmHg [facility] Work Phone: AV mean gradient 7 [facility] Work [facility]: AV peak gradient 13 mmHG [facility] Work Phone: [phone] AV valve area 2.16 cm2 [facility] Work Phone: AV Velocity Ratio 0.68 [facility] Work [facility]: CORONA (continuity Vmax) 2.04 cm2 [facility] Work Phone: [phone] CORONA (continuity VTI) 2.16 cm2 [facility] Work Phone: [phone] CORONA index (continuity Vmax) 1.33 m/s [facility] Work Phone: [phone] CORONA index (continuity VTI) 1.41 cm2/m2 [facility] Work Phone: [phone] Avg e' pk jeri 0.11 m/s [facility] Work Phone: [phone] Avg E/e' ratio 7.89 [facility] Work Phone: [phone] Body surface area Derived from formula 1.53 m2 [facility] Work Phone: [phone] BP EF 61 % [facility] Work Phone: [phone] DI (Vmax) 0.68 [facility] Work Phone: [phone] DI (VTI) 0.72 m/2 [facility] Work Phone: [phone] E wave decelartion time 194.4 msec [facility] Work Phone: [phone] e' lateral pk jeri 0.1015 m/s [facility] Work Phone: [phone] e' lateral pk jeri 0.1 m/s [facility] Work Phone: [phone] e' septal pk jeri 0.1238 m/s [facility] Work Phone: [phone] e' septal pk jeri 0.12 m/s [facility] Work Phone: [phone] E/A ratio 1.31 [facility] Work Phone: [phone] E/e' lateral [facility] 8.67 [facility]: [phone] E/e' septal ratio 7.11 [facility] Work Phone: [phone] EF SP 2CH 65 [facility] Work Phone: [phone] EF SP 4CH 59 [facility] Work Phone: [phone] EST RAP 5 mmHg [facility] Work Phone: [phone] EST RVSP 28 mmHg [facility] Work Phone: [phone] FS 36 % [facility] Work Phone: [phone] IVC ostium 1.12 cm [facility] Work Phone: [phone] IVS 0.6 cm [facility] Work Phone: [phone] LA ESV BP (MOD) 72 mL [facility] Work Phone: [phone] LA ESV BP (MOD) index 47 mL/m2 [facility] Work Phone: [phone] LA ESV SP 2CH (MOD) 84 mL [facility] Work Phone: [phone] LA ESV SP 4CH (MOD) 60 mL [facility] Work Phone: [phone] [facility]: [phone] [facility] ED[facility] SP 2CH 88 [facility] Work Phone: [phone] LV ED[facility] SP 4CH 97 [facility] Work Phone: [phone] LV ESV BP 37 mL [facility] Work Phone: [phone] LV ESV SP 2CH 31 mL [facility] Work Phone: [phone] LV ESV SP 4CH 40 mL [facility] Work Phone: [phone] LV mass 108.07 g [facility] Work Phone: [phone] LV Mass Index 70.6 g/m2 [facility] Work Phone: [phone] LV RWT 0.23 [facility] Work Phone: [phone] LV stroke volume BP (ml) 59 mL [facility] Work Phone: [phone] LV stroke volume index BP 38.56 mL/m2 [facility] Work Phone: [phone] LVIDD 5.35 cm [facility] Work Phone: [phone] LVIDS 3.43 cm [facility] Work Phone: [phone] LVOT area 2.98 cm2 [facility] Work Phone: [phone] LVOT diameter 1.95 cm [facility] Work Phone: [phone] LVOT peak ejri 1.21 m/s [facility] Work Phone: [phone] LVOT peak VTI 28.7 cm [facility] Work Phone: [phone] LVOT stroke volume 86 cm3 [facility] Work Phone: LVOT stroke volume index 55.99 ml/m2 [facility] Work Phone: [phone] MV pk A jeri 0.67 m/s [facility] Work Phone: [phone] MV pk E jeri 0.88 m/s [facility] Work Phone: [phone] [facility] AV VTI RATIO PRE STRESS 0.72 [facility] Work Phone: [facility] ECHO LV BIPLANE SYSTOLIC VOLUME INDEX 24.18 mL/m2 [facility] Work Phone: [facility] ECHO LV BP DIASTOLIC VOLUME INDEX 62.75 mL/m2 [facility] Work Phone: [phone] PV peak gradient 2 mmHg [facility] Work Phone: [phone] PV PK JERI 0.71 m/s [facility] Work Phone: [phone] PW 0.61 cm [facility] Work Phone: [phone] RA vol index 4CH (MOD) 46.41 mL/m2 [facility] Work Phone: [phone] Right atrium volume 4 chamber method of disks 71 mL [facility] Work Phone: [phone] RV Area diastolic 15.71 [facility]2 [facility]: [phone] RV Area systolic 7.9 cm2 [facility] Work Phone: RV basal diam 3.64 cm [facility] Work Phone: [phone] RV Fractional area change 49.7 % [facility] Work Phone: RV long diam 5.75 cm [facility] Work Phone: [phone] RV mid diam 2.87 cm [facility] Work Phone: RV S' 15.17 cm/s [facility] Work Phone: Sinus 3.24 cm [facility] Work Phone: [phone] STJ 2.44 cm [facility] Work Phone: [phone] Stroke Volume 86 cm/mL [facility] Work Phone: Stroke volume index 56 [facility] Work Phone: TAPSE 2.16 cm [facility] Work Phone: TR pk grad 23 mmHg [facility] Work Phone: [phone] TR pk jeri 2.4 m/s [facility] Work Phone: TV rest pulmonary artery pressure 26.09 mmHg [facility] Work Phone: [facility] Work Phone: Cardiac echo study Procedure on 10-19-2024 [facility] Radiology Study observation (narrative) [facility] ECHOCARDIOGRAMon 10-19-2024 Echocardiography Left ventricular siz e, regional wall motion and global systolic function are normal. Ejection fraction 61% Left atrium measures moderately enlarged in size Right ventricle is normal in size and function. Estimated right ventricular/pulmonary artery systolic pressure, 28mmHg Right atrium measures moderate to severely enlarged in size Valve structures are consistent with age. No valve dysfunction Further study details described below Table formatting from the original result was not included. Images from the original result were not included. [facility] Facility [facility] Patient Information Patient Name Behzad Hay Legal Sex Female Indication for Exam Priority: Routine Dx: Cerebrovascular accident (CVA), unspecified mechanism [I63.9 (ICD-10-CM)] Order Question Reason for Exam stroke Interpretation Summary Result History is available. Left ventricular size, regional wall motion and global systolic function are normal. Ejection fraction 61% Left atrium measures moderately enlarged in size Right ventricle is normal in size and function. Estimated right ventricular/pulmonary artery systolic pressure, 28mmHg Right atrium measures moderate to severely enlarged in size Valve structures are consistent with age. No valve dysfunction Further study details described below Findings Left Ventricle Chamber size is normal. Normal wall thickness. Normal global systolic function. Regional wall motion is normal. The ejection fraction is 61%. Ejection fraction by modified Jeff's rule is normal. Diastolic function could not be determined. Right Ventricle Chamber size is normal. Systolic function is normal. Estimated right ventricular systolic pressure is 28 mmHg. Fractional area change equals 49.7%. Left Atrium Chamber size is moderately enlarged. Right Atrium Chamber size is moderately to severely enlarged. Septum The atrial septum is normal. Mitral Valve Non-specific leaflet thickening. Leaflet mobility is normal. Mild annular calcification. Trace regurgitation. No valve stenosis. Aortic Valve Trileaflet valve. Mild leaflet calcification. Cusp sclerosis visualized. Leaflet mobility is normal. No regurgitation. No stenosis. Mean gradient: 7 mmHg. Dimensionless Index by VTI: 0.72. Tricuspid Valve Normal leaflets. Leaflet mobility is normal. Mild regurgitation. No stenosis. No echo/Doppler evidence for pulmonary hypertension. Estimated right ventricular systolic pressure is 28 mmHg. Pulmonic Valve Normal structure. Trace regurgitation. No stenosis. Aorta No dilation to extent seen. SOV: 3.24 cm. STJ: 2.44 cm. Ascendin.39 cm. Pericardium No pericardial effusion. IVC/SVC The inferior vena cava is normal in size. The inferior vena cava structure is normal. Reading Providers Reading Role Read Date Alfredito Rodriguez DO Echo Murray 10/19/2024 Left Heart Measurements LV - Systole LVIDD 5.35 cm IVS 0.6 cm LVIDS 3.43 cm PW 0.61 cm LV RWT 0.23 LV Mass Index 70.6 g/m2 LV EDV BP 96 mL LV ESV BP 37 mL BP EF 61 % LV stroke volume BP (ml) 59 mL LV stroke volume index BP 38.56 mL/m2 LV - Diastole MV pk E jeri 0.88 m/s MV pk A jeri 0.67 m/s E/A ratio 1.31 e' septal pk jeri 0.12 m/s e' lateral pk jeri 0.1 m/s Avg e' pk jeri 0.11 m/s E/e' septal ratio 7.11 E/e' lateral ratio 8.67 Avg E/e' ratio 7.89 LV - HCM AV LVOT peak gradient 6 mmHg Left Atrium LA ESV SP 4CH (MOD) 60 mL LA ESV SP 2CH (MOD) 84 mL LA ESV BP (MOD) index 47 mL/m2 Right Heart Measurements RV - 2D RV basal diam 3.64 cm RV mid diam 2.87 cm RV long diam 5.75 cm RV Area diastolic 15.71 cm2 RV Area systolic 7.9 cm2 RV Fractional area change 49.7 % RV - Doppler TAPSE 2.16 cm RV S' 15.17 cm/s Right Atrium RA vol index 4CH (MOD) 46.41 mL/m2 EST RAP 5 mmHg Great Vessels Aortic Root - End Diastolic Sinus 3.24 cm STJ 2.44 cm Ascending aorta 3.39 cm Inferior Vena Cava IVC ostium 1.12 cm Doppler Measurements - Aortic Valve Stenosis LVOT diameter 1.95 cm LVOT area 2.98 cm2 LVOT peak jeri 1.21 m/s LVOT peak VTI 28.7 cm Stroke Volume 86 cm/mL Stroke volume index 56 Ao peak jeri 1.77 m/s Ao VTI 39.74 cm AV peak gradient 13 mmHG AV mean gradient 7 mmHg DI (VTI) 0.72 m/2 DI (Vmax) 0.68 CORONA (continuity Vmax) 2.04 cm2 CORONA index (continuity Vmax) 1.33 m/s CORONA (continuity VTI) 2.16 cm2 CORONA index (continuity VTI) 1.41 cm2/m2 LVOT stroke volume 86 cm3 LVOT stroke volume index 55.99 ml/m2 Doppler Measurements - Mitral Valve Stenosis MV pk E jeri 0.88 m/s MV pk A jeri 0.67 m/s E/A ratio 1.31 TV rest pulmonary artery pressure 26.09 mmHg PI (more content not included)... Normal [facility] GLUCOSE POCon 10-19-2024 Glucose [Mass/Vol] 112 mg/dL 70 - 179 mg/dL [facility] Glucose [Mass/Vol] 106 mg/dL 70 - 179 mg/dL [facility] Glucose [Mass/Vol] 124 mg/dL 70 - 179 mg/dL [facility] POC Sample Type CAPBL [facility] Glucose [Mass/Vol] 131 mg/dL 70 - 179 mg/dL [facility] POC Sample Type CAPBL [facility] HEPATIC FUNCTION PANELon Albumin [Mass/Vol] 3.9 g/dL 3.5 - 5.0 g/dL [facility] ALT [Catalytic activity/Vol] 79 U/L High 9 - 48 U/L [facility] Albumin [Mass/Vol] 3.9 g/dL Normal 3.5-5.0 [facility] Comment on above: Performed By: #### T YPEC #### [facility] (DEFAULT) [address] [place] [address] ALP [Catalytic activity/Vol] 171 U/L High 32-126 [facility] Comment on above: Performed By: #### T YPEC #### [facility] (DEFAULT) [address] [place] [address] ALT [Catalytic activity/Vol] 79 U/L High 9-48 [facility] Comment on above: Performed By: #### T YPEC #### [facility] (DEFAULT) [address] [place] [address] AST [Catalytic activity/Vol] 48 U/L High 10-39 [facility] Comment on above: Performed By: #### T YPEC #### [facility] (DEFAULT) [address] [place] [address] Bilirubin [Mass/Vol] 0.4 mg/dL Normal <1.5 [facility] Comment on above: Performed By: #### T YPEC #### [facility] (DEFAULT) [address] [address] Bilirubin Direct < Normal <0.3 [facility] Comment on above: Performed By: #### T YPEC #### [facility] (DEFAULT) [address] [address] Protein [Mass/Vol] 6.7 g/dL Normal 6.4-8.3 [facility] Comment on above: Performed By: #### T YPEC #### [facility] (DEFAULT) [address] [address] IONIZED CALCIUM, SERUMOrdere d By: Mook Albrecht on 10-19-2024 Calcium.ionized (Bld) [Moles/Vol] 4.91 mg/dL 4.60 - 5.30 mg/dL [facility] Interpretation and review of laboratory results Normal [facility] IONIZED CALCIUM, SERUMon ICA 4.91 mg/dL Normal 4.60-5.30 [facility] Comment on above: Performed By: #### U [id number] #### [facility] (DEFAULT) [address] [address] MAGNESIUMon 10-19-2024 Magnesium [Mass/Vol] 1.9 mg/dL Normal 1.6-2.6 [facility] Comment on above: Performed By: #### T YPEC #### [facility] (DEFAULT) [address] [place] [address] MANUAL DIFFon 10-19-2024 Band form neutrophils/100 WBC (Bld) 0 % [facility] Basophils (Bld) [#/Vol] 0 10*3/uL 0.00 - 0.15 K/uL [facility] Basophils/100 WBC (Bld) 0 % [facility] Differential cell count method Nom (Bld) Manual Differential [facility] Eosinophils (Bld) [#/Vol] 2.36 10*3/uL High [facility] Eosinophils/100 WBC (Bld) 23.3 % [facility] Interpretation and review of laboratory results Abnormal [facility] Lymphocytes (Bld) [#/Vol] 1.31 10*3/uL 1.16 - 3.51 K/uL [facility] Lymphocytes/100 WBC (Bld) 12.9 % [facility] Monocytes (Bld) [#/Vol] 0.44 10*3/uL 0.22 - 0.87 K/uL [facility] Monocytes/100 WBC (Bld) 4.3 % [facility] Neutrophils (Bld) [#/Vol] 6.02 10*3/uL 1.64 - 7.28 K/uL [facility] Platelets Estimate (Bld) [#/Vol] Automated platelet count confirmed by manual slide review [facility] RBC morphology finding Nom (Bld) RBC INDICES CONFIRMED WITH MANUAL SLIDE REVIEW [facility] Segmented neutrophils/100 WBC (Bld) 59.5 % [facility] MR Brain WO and W contrast I Von 10-19-2024 RADIOLOGY RADIOLOGY [facility] Radiology Study observation (narrative) [facility] MR Brain WO and W contrast I VOrdered By: Chano Moe on 10-19-2024 [facility] Work Phone: MRI BRAIN STROKE WITH AND WI THOUT CONTRASTon 10-19-2024 MRI BRAIN STROKE WITH AND WITHOUT CONTRAST EXAM: MRI BRAIN STROKE WITH AND WITHOUT CONTRAST, 10/19/2024 09:30 AM COMPARISON: October 18, 2024 CT head CLINICAL INDICATIONS: 84 years Female L BG IP RELEVANT CLINICAL HISTORY: Left thalamic intracranial hemorrhage With perfusion please!; TECHNIQUE: A series of multisequence, multiplanar images of the brain are obtained both before and after intravenous administration of gadolinium-based contrast using acute stroke protocol. Study includes diffusion-weighted images. CONTRAST: Gadopiclenol SOLN 1-25 mL; Route of Administration: Intravenous; Dose: 5.6 mL. FINDINGS: Left thalamic hemorrhage with associated susceptibility artifact and surrounding edema is seen which was noted on October 18, 2024 CT exam. There is no midline shift. 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 Two punctate foci of restricted diffusion are seen in the right occipital lobe as seen on series 6 images 51 and 48. An additional punctate focus of diffusion restriction is seen in the left cerebellum as seen on series 6 image 42. Left MCA territory encephalomalacia with gyriform T1 hyperintensity is compatible with remote infarct with associated laminar necrosis. Moderate diffuse parenchymal line loss is present. Nonspecific periventricular white matter T2 FLAIR hyperintensities likely reflect small vessel ischemic changes given patient's age. No enhancing intracranial mass. No extracerebral collection. Sellar and parasellar structures are unremarkable. Posterior fossa is unremarkable. Ventricles and sulci are within normal limits relative to the degree of volume loss. Enhancing foci in the posterior right parietal bone with associated lucency on recent CT head are likely benign. IMPRESSION: Left thalamic hemorrhage as noted on October 18, 2024 CT head. Punctate right occipital and left cerebellar acute infarcts. Remote left MCA territory infarct. I personally viewed and interpreted these images and I have reviewed and approved this report. Normal [facility] No Panel Informationon 10-19 POC Sample Type CAPBL [facility] PHOSPHATE, INORGANICon 10-19 Phosphorous 2.9 mg/dL Normal 2.2-4.6 [facility] Comment on above: Performed By: #### T YPEC #### [facility] (DEFAULT) [address] [place] [address] PLATELET COUNTon 10-19-2024 Interpretation and review of laboratory results Normal [facility] Platelet mean volume (Bld) [Entitic vol] 9 fL 8.5 - 12.2 fL [facility] Platelets (Bld) [#/Vol] 300 10*3/uL 150 - 393 K/uL [facility] Platelet mean volume (Bld) [Entitic vol] 9.0 fL Normal 8.5-12.2 [facility] Comment on above: Performed By: #### C HM7 #### [facility] (DEFAULT) [address] [place] [address] Platelets (Bld) [#/Vol] 300 10*3/uL Normal 150-393 [facility] Comment on above: Performed By: #### C HM7 #### [facility] (DEFAULT) [address] [place] [address] PT,INR,PTTon 10-19-2024 aPTT Coag (PPP) [Time] 28.4 s [facility] INR Coag (Bld) [Relative time] 1 {INR} 0.9 - 1.1 [facility] Interpretation and review of laboratory results Normal [facility] PT Coag (PPP) [Time] 13.2 s [facility] aPTT Coag (Bld) [Time] 28.4 s Normal 24.0-34.3 [facility] Comment on above: Performed By: #### U [id number] #### [facility] (DEFAULT) [address] [place] [address] INR Coag (PPP) [Relative time] 1.0 {INR} Normal 0.9-1.1 [facility] Comment on above: Performed By: #### U [id number] #### [facility] (DEFAULT) [address] [address] PT Coag (PPP) [Time] 13.2 s Normal 11.9-14.2 [facility] Comment on above: Performed By: #### U [id number] #### [facility] (DEFAULT) [address] [address] SCREEN: MRSA/MSSAOrdered By: Rober Mix on 10-19-2024 Interpretation and review of laboratory results Normal [facility] Methicillin Resistant S. Aureus By Pcr Negative Negative [facility] Staphylococcus Aureus By Pcr Negative Negative [facility] SCREEN: MRSA/MSSAon 10-20-19 Methicillin Resistant S. Aureus By Pcr Negative Normal Negative [facility] Comment on above: Order Comment: Colle ct with an ESWAB - Anterior Nares for MRSA + MSSAThis test was performed using a real time PCR assay. Results should be interpreted in conjunction with other clinical and laboratory findings. A positive result does not necessarily indicate the presence of viable organism. This test should not be used as a test of cure. For E-swab specimens, this test was developed and its performance characteristics determined by the [facility]biology Laboratory at [facility]. It has not been cleared or approved by the FDA.The laboratory is regulated under CLIA as qualified to perform high-complexity testing. This test is used for clinical purposes. It should not be regarded as investigational or for research. Performed By: #### T YPEC #### [facility] (DEFAULT) [address] [address] Staphylococcus Aureus By Pcr Negative Normal Negative [facility] Comment on above: Order Comment: Colle ct with an ESWAB - Anterior Nares for MRSA + MSSAThis test was performed using a real time PCR assay. Results should be interpreted in conjunction with other clinical and laboratory findings. A positive result does not necessarily indicate the presence of viable organism. This test should not be used as a test of cure. For E-swab specimens, this test was developed and its performance characteristics determined by the [facility] at [facility]. It has not been cleared or approved by the FDA.The laboratory is regulated under CLIA as qualified to perform high-complexity testing. This test is used for clinical purposes. It should not be regarded as investigational or for research. Performed By: #### T YPEC #### [facility] (DEFAULT) [address] [address] 12 Lead EKGon 10-18-2024 12 Lead EKG Normal [facility] ABORH TYPE RECONFIRMATIONon 10-18-2024 ABO/RH(D) TYPE Positive Normal [facility] Comment on above: Performed By: #### T YPEC #### [facility] (DEFAULT) [address] [address] Absolute lymphocyte countOrd ered By: Mihai Woods on 10-18-2024 Lymphocytes Auto (Unsp spec) [#/Vol] 1.10 10*3/uL 0.83-4.51 [facility] Absolute neutrophil countOrd ered By: Mihai Woods on 10-18-2024 Neutrophils (Bld) [#/Vol] 4.6 10*3/uL 2.0-7.7 [facility] Activated partial thrombopla stin time (aPTT) in platelet poor plasma by coagulation aOrdered By: Mihai Woods on 10-18-2024 aPTT Coag (PPP) [Time] 29.2 s 24.1-36.2 [facility] Anion gap in Serum or Plasma Ordered By: Mihai Woods on 10-18-2024 Anion gap [Moles/Vol] 10 mmol/L 5-15 [facility] Automated lymphocyte count a s percentage of total leukocytesOrdered By: Mihai Woods on 10-18-2024 Lymphocytes/100 WBC Auto (Unsp spec) 13.6 % Low 19-41 [facility] BUN/creatinine ratioOrdered By: Mihai Woods on 10-18-2024 Urea nitrogen/Creatinine [Mass ratio] 17.9 mg/mg 10-20 [facility] Basic Metabolic Profile (BMP )on 10-18-2024 BUN/CRE 17.9 RATIO Normal 10-20 [facility] Comment on above: Performed By: #### L 500.2500, L300.3900, L300.4310, L501.4021, L100.0100 ####[facility] [address] [place], [address] Calcium [Mass/Vol] 9.6 mg/dL Normal 7.6-11.0 [facility] Comment on above: Performed By: #### L 500.2500, L300.3900, L300.4310, L501.4021, L100.0100 ####[facility] [address] [place], [address] Chloride [Moles/Vol] 102 mmol/L Normal 98-108 [facility] Comment on above: Performed By: #### L 500.2500, L300.3900, L300.4310, L501.4021, L100.0100 ####[facility] [address] [place], [address] CO2 [Moles/Vol] 26.6 mmol/L Normal 21.0-32.0 [facility] Comment on above: Performed By: #### L 500.2500, L300.3900, L300.4310, L501.4021, L100.0100 ####[facility] [address] [place], [address] Creatinine [Mass/Vol] 0.95 mg/dL Normal 0.70-1.20 [facility] Comment on above: Performed By: #### L 500.2500, L300.3900, L300.4310, L501.4021, L100.0100 ####[facility] [address] [place], [address] ECRCL 33.62 ml/min Low 50-250 [facility] Comment on above: Performed By: #### L 500.2500, L300.3900, L300.4310, L501.4021, L100.0100 ####[facility] [address] [place], [address] GAP 10 Normal 5-15 [facility] Comment on above: Performed By: #### L 500.2500, L300.3900, L300.4310, L501.4021, L100.0100 ####[facility] [address] [place], [address] GFR/1.73 sq M.predicted among non-blacks MDRD (S/P/Bld) [Vol rate/Area] 58 mL/min/{1.73_m2} Low >60 [facility] Comment on above: Result Comment: mL/m in/1.73m2 CKD-EPI Creatinine Equation (2020) Performed By: #### L 500.2500, L300.3900, L300.4310, L501.4021, L100.0100 ####[facility] [address] [place], [address] Glucose [Mass/Vol] 98 mg/dL Normal 70-99 [facility] Comment on above: Performed By: #### L 500.2500, L300.3900, L300.4310, L501.4021, L100.0100 ####[facility] [address] [place], [address] Potassium [Moles/Vol] 4.6 mmol/L Normal 3.3-5.1 [facility] Comment on above: Performed By: #### L 500.2500, L300.3900, L300.4310, L501.4021, L100.0100 ####[facility] [address] [place], [address] Sodium [Moles/Vol] 139 mmol/L Normal 133-145 [facility] Comment on above: Performed By: #### L 500.2500, L300.3900, L300.4310, L501.4021, L100.0100 ####[facility] [address] [place], [address] Urea nitrogen [Mass/Vol] 17 mg/dL Normal 4-19 [facility] Comment on above: Performed By: #### L 500.2500, L300.3900, L300.4310, L501.4021, L100.0100 ####[facility] [address] [place], [address] Basophil percentageOrdered B y: Mihai Woods on 10-18-2024 Basophils/100 WBC (Bld) 1.9 % High 0-1 [facility] CALCIUMon 10-18-2024 Calcium [Mass/Vol] 8.9 mg/dL Normal 8.6-10.5 [facility] Comment on above: Performed By: #### X M #### [facility] (DEFAULT) [address] [address] CBC AND ELECTRONIC DIFFon Hematocrit (Bld) [Volume fraction] 37.7 % Normal 34.9-44.3 [facility] Comment on above: Performed By: #### A 1CB, [id number] #### [facility] (DEFAULT) [address] [address] Hemoglobin (Bld) [Mass/Vol] 12.0 g/dL Normal 11.4-15.2 [facility] Comment on above: Performed By: #### A 1CB, [id number] #### [facility] (DEFAULT) [address] [address] MCV (RBC) [Entitic vol] 97.7 fL Normal 79.6-97.7 [facility] Comment on above: Performed By: #### A 1CB, [id number] #### [facility] (DEFAULT) [address] [address] Mean Cell Hgb 31.1 pg Normal 25.9-33.9 [facility] Comment on above: Performed By: #### Perez NAVARRO, [id number] #### [facility] (DEFAULT) [address] [place] [address] Mean Cell Hgb Conc 31.8 g/dL Normal 31.4-35.9 [facility] Comment on above: Performed By: #### Perez NAVARRO, [id number] #### [facility] (DEFAULT) [address] [place] [address] Platelet mean volume (Bld) [Entitic vol] 8.9 fL Normal 8.5-12.2 [facility] Comment on above: Performed By: #### Perez NAVARRO, [id number] #### [facility] (DEFAULT) [address] [place] [address] Platelets (Bld) [#/Vol] 273 10*3/uL Normal 150-393 [facility] Comment on above: Performed By: #### Perez NAVARRO, [id number] #### [facility] (DEFAULT) [address] [place] [address] RBC (Bld) [#/Vol] 3.86 10*6/uL Low 3.91-5.04 [facility] Comment on above: Performed By: #### Perez NAVARRO, [id number] #### [facility] (DEFAULT) [address] [place] [address] RBC Distribution 12.6 % Normal 10.8-14.9 [facility] Comment on above: Performed By: #### Perez 1CB, [id number] #### [facility] (DEFAULT) [address] [place] [address] WBC (Bld) [#/Vol] 8.14 10*3/uL Normal 3.99-11.19 [facility] Comment on above: Performed By: #### Perez 1CB, [id number] #### [facility] (DEFAULT) [address] [place] [address] CBC W/Diff, Automatedon 07-0 7-2024 Absolute Lymph 1.10 X10 3/uL Normal 0.83-4.51 [facility] Comment on above: Performed By: #### L 500.2500, L300.3900, L300.4310, L501.4021, L100.0100 ####[facility] [address] [place], [address] Absolute Neut 4.6 X10 3/uL Normal 2.0-7.7 [facility] Comment on above: Performed By: #### L 500.2500, L300.3900, L300.4310, L501.4021, L100.0100 ####[facility] [address] [place], [address] Basophils/100 WBC (Bld) 1.9 % High 0-1 [facility] Comment on above: Performed By: #### L 500.2500, L300.3900, L300.4310, L501.4021, L100.0100 ####[facility] [address] [place], [address] Eosinophils/100 WBC (Bld) 19.1 % High 0-5 [facility] Comment on above: Performed By: #### L 500.2500, L300.3900, L300.4310, L501.4021, L100.0100 ####[facility] [address] [place], [address] Erythrocyte distribution width (RBC) [Ratio] 12.7 % Normal 11.6-14.6 [facility] Comment on above: Performed By: #### L 500.2500, L300.3900, L300.4310, L501.4021, L100.0100 ####[facility] [address] [place], [address] Hematocrit (Bld) [Volume fraction] 40.2 % Normal 37-47 [facility] Comment on above: Performed By: #### L 500.2500, L300.3900, L300.4310, L501.4021, L100.0100 ####[facility] [address] [place], [address] Hemoglobin (Bld) [Mass/Vol] 12.8 g/dL Normal 12.0-15.0 [facility] Comment on above: Performed By: #### L 500.2500, L300.3900, L300.4310, L501.4021, L100.0100 ####[facility] [address] [place], [address] IG% 0.200 Normal 0.0-0.9 [facility] Comment on above: Result Comment: IG% - Immature Granulocytes (promyelocytes, myelocytes andmetamyelocytes) > 1% indicates that a LEFT SHIFT is Present. Performed By: #### L 500.2500, L300.3900, L300.4310, L501.4021, L100.0100 ####[facility] [address] [place], [address] Lymphocytes/100 WBC (Bld) 13.6 % Low 19-41 [facility] Comment on above: Performed By: #### L 500.2500, L300.3900, L300.4310, L501.4021, L100.0100 ####[facility] [address] [place], [address] MCH (RBC) [Entitic mass] 31.1 pg Normal 27.0-32.0 [facility] Comment on above: Performed By: #### L 500.2500, L300.3900, L300.4310, L501.4021, L100.0100 ####[facility] [address] [place], [address] MCHC (RBC) [Mass/Vol] 31.8 g/dL Low 32-36 [facility] Comment on above: Performed By: #### L 500.2500, L300.3900, L300.4310, L501.4021, L100.0100 ####[facility] [address] [place], [address] MCV (RBC) [Entitic vol] 97.8 fL Normal 81-99 [facility] Comment on above: Performed By: #### L 500.2500, L300.3900, L300.4310, L501.4021, L100.0100 ####[facility] [address] [place], [address] Monocytes/100 WBC (Bld) 7.9 % Normal 0-10 [facility] Comment on above: Performed By: #### L 500.2500, L300.3900, L300.4310, L501.4021, L100.0100 ####[facility] [address] [place], [address] Neutrophils/100 WBC (Bld) 57.3 % Normal 47-70 [facility] Comment on above: Performed By: #### L 500.2500, L300.3900, L300.4310, L501.4021, L100.0100 ####[facility] [address] [place], [address] Nucleated RBC (Bld) [#/Vol] 0 10*3/uL Normal 0-5 [facility] Comment on above: Performed By: #### L 500.2500, L300.3900, L300.4310, L501.4021, L100.0100 ####[facility] [address] [place], [address] Platelet mean volume (Bld) [Entitic vol] 9.5 fL Normal 6.2-12.0 [facility] Comment on above: Performed By: #### L 500.2500, L300.3900, L300.4310, L501.4021, L100.0100 ####[facility] [address] [place], [address] Platelets (Bld) [#/Vol] 310 10*3/uL Normal 150-450 [facility] Comment on above: Performed By: #### L 500.2500, L300.3900, L300.4310, L501.4021, L100.0100 ####[facility] [address] [place], [address] RBC (Bld) [#/Vol] 4.11 10*6/uL Low 4.2-5.4 [facility] Comment on above: Performed By: #### L 500.2500, L300.3900, L300.4310, L501.4021, L100.0100 ####[facility] [address] [place], [address] RDW SD 45.4 fl High 35.1-43.9 [facility] Comment on above: Performed By: #### L 500.2500, L300.3900, L300.4310, L501.4021, L100.0100 ####[facility] [address] [place], [address] WBC (Bld) [#/Vol] 8.1 10*3/uL Normal 4.4-11.0 [facility] Comment on above: Performed By: #### L 500.2500, L300.3900, L300.4310, L501.4021, L100.0100 ####[facility] [address] [place], [address] CHM 7 - EDon 10-18-2024 Anion gap [Moles/Vol] 9 mmol/L Normal 7-17 [facility] Comment on above: Performed By: #### X M #### [facility] (DEFAULT) [address] [place] [address] Chloride [Moles/Vol] 105 mmol/L Normal 98-108 [facility] Comment on above: Performed By: #### X M #### [facility] (DEFAULT) [address] [place] [address] CO2 [Moles/Vol] 27 mmol/L Normal 21-31 [facility] Comment on above: Performed By: #### X M #### [facility] (DEFAULT) [address] [place] [address] Creatinine [Mass/Vol] 0.86 mg/dL Normal 0.50-1.20 [facility] Comment on above: Performed By: #### X M #### [facility] (DEFAULT) [address] [place] [address] GFR/1.73 sq M.predicted among non-blacks MDRD (S/P/Bld) [Vol rate/Area] 66 mL/min/{1.73_m2} Normal >=60 [facility] Comment on above: Result Comment: Repo rted eGFR is based on the CKD-EPI 2020 equation using creatinine, age, and sex. Performed By: #### X M #### [facility] (DEFAULT) [address] [place] [address] Glucose [Mass/Vol] 114 mg/dL Normal Nonfastin g : 70-179 mg/dL; Fastin-99 [facility] Comment on above: Performed By: #### X M #### [facility] (DEFAULT) [address] [place] [address] Osmolality [Osmolality] 290 mosm/kg Normal 278-305 [facility] Comment on above: Performed By: #### X M #### [facility] (DEFAULT) [address] [place] [address] Potassium [Moles/Vol] 4.2 mmol/L Normal 3.5-5.0 [facility] Comment on above: Performed By: #### X M #### [facility] (DEFAULT) [address] [place] [address] Sodium [Moles/Vol] 137 mmol/L Normal 135-145 [facility] Comment on above: Performed By: #### X M #### [facility] (DEFAULT) [address] [place] [address] Urea nitrogen [Mass/Vol] 16 mg/dL Normal - [facility] Comment on above: Performed By: #### X M #### [facility] (DEFAULT) [address] [place] [address] Urea nitrogen/Creatinine [Mass ratio] 19 mg/mg Normal [facility] Comment on above: Performed By: #### X M #### [facility] (DEFAULT) [address] [place] [address] CT HEAD WITHOUT CONTRASTon 0 10-18-2024 CT HEAD WITHOUT CONTRAST EXAM: CT HEAD WITHOUT CONTRAST, 10/18/2024 5:10 PM COMPARISON: CT STROKE HEAD-STROKE ALERT ONLY October 18, 2024, CT HEAD (OUTSIDE IMAGE) October 18, 2024 CLINICAL INDICATIONS: 84 years Female L BG IP RELEVANT CLINICAL HISTORY: To be scheduled 6 hours from initial Head CT.; TECHNIQUE: A series of transaxial computerized tomographic images are obtained from base of skull to vertex without intravenous contrast. Axial whole-head and thin section posterior fossa slices are provided. Reformats: Sagittal and coronal. FINDINGS: There is mild motion. Findings have not significantly changed compared to prior. There is intravascular contrast. Dual-energy CT was utilized. Stable left thalamic intraparenchymal hematoma Again seen is a wedge-shaped hypodensity left MCA territory compatible with contrast staining. Findings could relate to subacute infarct. No associated mass effect. Patchy hypoattenuation in the periventricular and deep white matter is nonspecific but compatible with chronic microvascular changes. There is no abnormal extracerebral collection. No hydrocephalus. There is no mass effect or midline shift. Calvaria and skull base appear intact. Visualized paranasal sinuses show no air-fluid levels. Bilateral cataract surgery is noted. Atherosclerosis at the skull base. IMPRESSION: Stable exam. Acute left thalamic hemorrhage with mild surrounding vasogenic edema. 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 Normal [facility] CT STROKE HEAD-STROKE ALERT ONLYon 10-18-2024 CT STROKE HEAD-STROKE ALERT ONLY EXAM: CT STROKE HEAD-STROKE ALERT ONLY, 10/18/2024 1:43 PM COMPARISON: Outside CT head and angiogram dated 10/18/2024 CLINICAL INDICATIONS: 84 years Female Suspected Stroke TECHNIQUE: A series of transaxial computerized tomographic images are obtained from base of skull to vertex without intravenous contrast. Axial whole-head and thin section posterior fossa slices are provided. Reformats: Sagittal and coronal. Virtual noncontrast, iodine dual-energy map. FINDINGS: Acute left thalamic hemorrhage (series 3, image 15), with mild surrounding vasogenic edema. Transaxially, the hemorrhage measures 1.3 x 1.8 cm. Retained contrast is noted from outside CTA from earlier on the same day. Wedge-shaped hypodensity left MCA territory compatible with an infarct which demonstrates some patchy enhancement, suggesting it is probably subacute in age. Patchy hypoattenuation in the periventricular and deep white matter is nonspecific but compatible with chronic microvascular changes. There is no abnormal extracerebral collection. No hydrocephalus. There is no mass effect or midline shift. Calvaria and skull base appear intact. Visualized paranasal sinuses show no air-fluid levels. Bilateral cataract surgery is noted. IMPRESSION: Acute left thalamic hemorrhage with mild surrounding vasogenic edema. 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 Preliminary findings were discussed with David Sutton NP on 10/18/2024 1:57 PM. I personally viewed and interpreted these images and I have reviewed and approved this report. Normal [facility] Carbon dioxide, total [Moles /volume] in Central venous bloodOrdered By: Mihai Woods on 10-18-2024 CO2 [Moles/Vol] 26.6 mmol/L 21.0-32.0 [facility] Chest 1 Viewon 10-18-2024 Chest 1 View Normal [facility] Chloride assayOrdered By: Timmy Woods on 10-18-2024 Chloride [Moles/Vol] 102 mmol/L 98-108 [facility] Emergency Department Summary on 10-18-2024 Emergency Department Summary Normal [facility] Eosinophil percentageOrdered By: Mihai Woods on 10-18-2024 Eosinophils/100 WBC (Bld) 19.1 % High 0-5 [facility] Erythrocyte distribution wid th ratioOrdered By: Mihai Woods on 10-18-2024 Erythrocyte distribution width (RBC) [Ratio] 12.7 % 11.6-14.6 [facility] Erythrocyte distribution wid th standard deviationOrdered By: Mihai Woods on 10-18-2024 Erythrocyte distribution width (RBC) [Ratio] 45.4 fl High 35.1-43.9 [facility] Glomerular filtration rate ( GFR) estimation/1.73 sq m using serum, plasma, or whole bOrdered By: Mihai Woods on 10-18-2024 GFR/1.73 sq M.predicted among non-blacks MDRD (S/P/Bld) [Vol rate/Area] 58 mL/min/{1.73_m2} Low >60 [facility] Comment on above: mL/min/1.73m2 CKD-EP I Creatinine Equation (2020) HEMOGLOBIN A1Con 10-18-2024 Glucose [Mass/Vol] 108 mg/dL Normal [facility] Comment on above: Performed By: #### A 1CB, [id number] #### [facility] (DEFAULT) [address] [address] Hemoglobin A1C HPLC 5.4 % Normal 4.7-5.6 [facility] Comment on above: Performed By: #### A 1CB, [id number] #### [facility] (DEFAULT) [address] [place] [address] HEPATIC FUNCTION PANELon Albumin [Mass/Vol] 3.8 g/dL Normal 3.5-5.0 [facility] Comment on above: Performed By: #### X M #### [facility] (DEFAULT) [address] [place] [address] ALP [Catalytic activity/Vol] 184 U/L High 32-126 [facility] Comment on above: Performed By: #### X M #### [facility] (DEFAULT) [address] [place] [address] ALT [Catalytic activity/Vol] 84 U/L High 9-48 [facility] Comment on above: Performed By: #### X M #### [facility] (DEFAULT) [address] [place] [address] AST [Catalytic activity/Vol] 58 U/L High 10-39 [facility] Comment on above: Performed By: #### X M #### [facility] (DEFAULT) [address] [place] [address] Bilirubin [Mass/Vol] 0.4 mg/dL Normal <1.5 [facility] Comment on above: Performed By: #### X M #### [facility] (DEFAULT) [address] [place] [address] Bilirubin.indirect [Mass/Vol] 0.1 mg/dL Normal <0.3 [facility] Comment on above: Performed By: #### X M #### [facility] (DEFAULT) [address] [place] [address] Protein [Mass/Vol] 6.4 g/dL Normal 6.4-8.3 [facility] Comment on above: Performed By: #### X M #### [facility] (DEFAULT) [address] [place] [address] HIGH SENSITIVITY TROPONIN I - SINGLE ORDERon 10-18-2024 hs-Troponin I 8 ng/L Normal <34 [facility] Comment on above: Order Comment: Acute Coronary Syndrome (ACS): Initial Evaluation and Management:[email or web address]/Guide [email or web address]%20Coronary%20Syndrome.pdf#[email or web address] Performed By: #### X M #### [facility] (DEFAULT) [address] [place] [address] Hematocrit Auto (Bld) [Volum e fraction]Ordered By: Mihai Woods on 10-18-2024 Hematocrit (Bld) [Volume fraction] 40.2 % 37-47 [facility] Hemoglobin measurementOrdere d By: Mihai Woods on 10-18-2024 Hemoglobin (Bld) [Mass/Vol] 12.8 g/dL 12.0-15.0 [facility] Immature granulocytes/100 WB C Auto (Bld)Ordered By: Mihai Woods on 10-18-2024 Immature granulocytes/100 WBC (Bld) 0.200 % 0.0-0.9 [facility] Comment on above: IG% - Immature Granu locytes (promyelocytes, myelocytes and metamyelocytes) > 1% indicates that a LEFT SHIFT is Present. International normalized rat io (INR) calculationOrdered By: Mihai Woods on 10-18-2024 INR Coag (Bld) [Relative time] 1.2 {INR} [facility] L499.0042on 10-18-2024 Trop T High Sen Normal <=14 [facility] Comment on above: Result Comment: NO S PECIMEN COLLECTED. PATIENT DEPARTED ED. Performed By: #### L 499.0042 ####[facility] [address] [place], [address] L499.0043on 10-18-2024 Trop T High Sen Normal <=14 [facility] Comment on above: Result Comment: Canc elled via OM: Order cancelled - Patient discharged Performed By: #### L 499.0043 ####[facility] [address] [place], [address] L501.4021on 10-18-2024 Trop T High Sen 26 ng/L High <=14 [facility] Comment on above: Performed By: #### L 500.2500, L300.3900, L300.4310, L501.4021, L100.0100 ####[facility] [address] [place], [address] LIPID PANEL WITH REFLEX TO M TOMURED LDLon 10-18-2024 Calculated LDL Cholesterol 73 mg/dL Normal 0-99 [facility] Comment on above: Result Comment: [<10 0 mg/dL: Optimal] [100-129 mg/dL: Near Optimal] [130-159 mg/dL: Borderline High] [160-189 mg/dL: High] [>189 mg/dL: Very High] Performed By: #### U R #### [facility] (DEFAULT) [address] [place] [address] Cholesterol [Mass/Vol] 140 mg/dL Normal <200 [facility] Comment on above: Result Comment: [<20 0 mg/dL: Desirable] [200-239 mg/dL: Borderline High] [>239 mg/dL: High] Performed By: #### U R #### [facility] (DEFAULT) [address] [place] [address] Cholesterol in HDL [Mass/Vol] 46 mg/dL Normal >=40 [facility] Comment on above: Result Comment: [<40 mg/dL: Low (High Risk)] [>59 mg/dL: High (Low Risk)] Performed By: #### U R #### [facility] (DEFAULT) [address] [place] [address] Non HDL Cholesterol 94 mg/dL Normal <130 [facility] Comment on above: Performed By: #### U R #### [facility] (DEFAULT) [address] [place] [address] Total Cholesterol/HDL Ratio 3.0 Normal <4.5 [facility] Comment on above: Performed By: #### U R #### [facility] (DEFAULT) [address] [place] [address] Triglyceride [Mass/Vol] 106 mg/dL Normal <150 [facility] Comment on above: Result Comment: [<15 0 mg/dL: Desirable] [150-199 mg/dL: Borderline] [200-499 mg/dL: High] [>500 mg/dL: Very High] Performed By: #### U R #### [facility] (DEFAULT) [address] [address] MAGNESIUMon 10-18-2024 Magnesium [Mass/Vol] 2.0 mg/dL Normal 1.6-2.6 [facility] Comment on above: Performed By: #### X M #### [facility] (DEFAULT) [address] [address] MCV (mean corpuscular volume ) determinationOrdered By: Mihai Woods on 10-18-2024 MCV (RBC) [Entitic vol] 97.8 fL 81-99 [facility] Mean corpuscular hemoglobin (MCH) determinationOrdered By: Mihai Woods on 10-18-2024 MCH (RBC) [Entitic mass] 31.1 pg 27.0-32.0 [facility] Mean corpuscular hemoglobin concentration (MCHC) determinationOrdered By: Mihai Woods on 10-18-2024 MCHC (RBC) [Mass/Vol] 31.8 g/dL Low 32-36 [facility] Mean platelet volume determi nationOrdered By: Mihai Woods on 10-18-2024 Platelet mean volume (Bld) [Entitic vol] 9.5 fL 6.2-12.0 [facility] Monocyte percentageOrdered B y: Mihai Woods on 10-18-2024 Monocytes/100 WBC (Bld) 7.9 % 0-10 [facility] Neutrophil percentageOrdered By: Mihai Woods on 10-18-2024 Neutrophils/100 WBC (Bld) 57.3 % 47-70 [facility] Nucleated red blood cell per centageOrdered By: Mihai Woods on 10-18-2024 Nucleated RBC/100 WBC (Bld) [Ratio] 0 % 0-5 [facility] PHOSPHATE, INORGANICon 10-18 Phosphorous 3.6 mg/dL Normal 2.2-4.6 [facility] Comment on above: Performed By: #### U R #### [facility] (DEFAULT) [address] [address] PTINR-STROKEon 10-18-2024 INR Coag (PPP) [Relative time] 1.1 {INR} Normal 0.9-1.1 [facility] Comment on above: Performed By: #### X M #### [facility] (DEFAULT) [address] [address] PT Coag (PPP) [Time] 13.9 s Normal 11.9-14.2 [facility] Comment on above: Performed By: #### X M #### [facility] (DEFAULT) [address] [place] [address] PTTon 10-18-2024 aPTT Coag (Bld) [Time] 31.9 s Normal 24.0-34.3 [facility] Comment on above: Performed By: #### X M #### [facility] (DEFAULT) [address] [place] [address] Partial Thromboplast Timeon 10-18-2024 aPTT Coag (Bld) [Time] 29.2 s Normal 24.1-36.2 [facility] Comment on above: Performed By: #### L 500.2500, L300.3900, L300.4310, L501.4021, L100.0100 ####[facility] [id number], [address] Platelet countOrdered By: Timmy Woods on 10-18-2024 Platelets (Bld) [#/Vol] 310 10*3/uL 150-450 [facility] Potassium measurement (mass/ volume)Ordered By: Mihai Woods on 10-18-2024 Potassium (Unsp spec) [Mass/Vol] 4.6 mmol/L 3.3-5.1 [facility] Prothrombin Time w/INRon INR Coag (PPP) [Relative time] 1.2 {INR} Normal [facility] Comment on above: Performed By: #### L 500.2500, L300.3900, L300.4310, L501.4021, L100.0100 ####[facility] [address] [place], [address] PT Coag (PPP) [Time] 15.4 s High 11.7-14.9 [facility] Comment on above: Performed By: #### L 500.2500, L300.3900, L300.4310, L501.4021, L100.0100 ####[facility] [id number] [place], [address] Prothrombin timeOrdered By: Mihai Woods on 10-18-2024 PT Coag (PPP) [Time] 15.4 s High 11.7-14.9 [facility] RBC Auto (Bld) [#/Vol]Ordere d By: Mihai Woods on 10-18-2024 RBC (Bld) [#/Vol] 4.11 10*6/uL Low 4.2-5.4 [facility] STROKE Brain/Head without Co nton 10-18-2024 STROKE Brain/Head without Cont Normal [facility] STROKE CTA Head AND Neck W/C onon 10-18-2024 STROKE CTA Head AND Neck W/Con Normal [facility] Serum creatinine measurement (mass/volume)Ordered By: Mihai Woods on 10-18-2024 Creatinine [Mass/Vol] 0.95 mg/dL 0.70-1.20 [facility] Serum glucose measurement (m ass/volume)Ordered By: Mihai Woods on 10-18-2024 Glucose [Mass/Vol] 98 mg/dL 70-99 [facility] Serum or plasma calcium camilo urement (mass/volume)Ordered By: Mihai Woods on 10-18-2024 Calcium [Mass/Vol] 9.6 mg/dL 7.6-11.0 [facility] Serum or plasma urea nitroge n measurement (mass/volume)Ordered By: Mihai Woods on 10-18-2024 Urea nitrogen [Mass/Vol] 17 mg/dL 4-19 [facility] Sodium levelOrdered By: Hilda Woods on 10-18-2024 Sodium [Moles/Vol] 139 mmol/L 133-145 [facility] TSH W/FT4 REFLEXon TSH 0.786 uIU/mL Normal 0.550-4.78 0 [facility] Comment on above: Performed By: #### U R #### [facility] (DEFAULT) [address] [place] [address] TYPE AND SCREENon 10-18-2024 ABO/RH(D) TYPE Positive Normal [facility] Comment on above: Performed By: #### X M #### [facility] (DEFAULT) [address] [place] [address] Specimen Expiration 10/21/2024 23:59 Normal [facility] Comment on above: Performed By: #### X M #### [facility] (DEFAULT) [address] [place] [address] Troponin T.cardiac [Mass/vol ume] in Serum or Plasma by High sensitivity methodOrdered By: Mihai Woods on 10-18-2024 Troponin T.cardiac High sensitivity method [Mass/Vol] 26 ng/L High <14 [facility] URINALYSIS REFLEX TO CULTURE PERFORMABLEon 10-18-2024 Appearance (U) Clear Normal Clear [facility] Comment on above: Order Comment: For i ndwelling catheters, specimen collection is acceptable on catheter day 1 and 2 only. ? Performed By: #### A 1CB, [id number] #### [facility] (DEFAULT) [address] [place] [address] Bacteria ABSENT Normal ABSENT [facility] Comment on above: Order Comment: For i ndwelling catheters, specimen collection is acceptable on catheter day 1 and 2 only. ? Performed By: #### A 1CB, [id number] #### [facility] (DEFAULT) [address] [place] [address] Blood Urine Trace Abnormal Negative [facility] Comment on above: Order Comment: For i ndwelling catheters, specimen collection is acceptable on catheter day 1 and 2 only. ? Performed By: #### A 1CB, [id number] #### [facility] (DEFAULT) [address] [place] [address] Color (U) Yellow Normal Yellow [facility] Comment on above: Order Comment: For i ndwelling catheters, specimen collection is acceptable on catheter day 1 and 2 only. ? Performed By: #### A 1CB, [id number] #### [facility] (DEFAULT) [address] [place] [address] Glucose Ql (U) Negative Normal Negative [facility] Comment on above: Order Comment: For i ndwelling catheters, specimen collection is acceptable on catheter day 1 and 2 only. ? Performed By: #### A 1CB, [id number] #### [facility] (DEFAULT) [address] [place] [address] Ketones Ql (U) Negative Normal Negative [facility] Comment on above: Order Comment: For i ndwelling catheters, specimen collection is acceptable on catheter day 1 and 2 only. ? Performed By: #### A 1CB, [id number] #### [facility] (DEFAULT) [address] [place] [address] Leukocyte esterase Test strip Ql (U) Trace Abnormal Negative [facility] Comment on above: Order Comment: For i ndwelling catheters, specimen collection is acceptable on catheter day 1 and 2 only. ? Performed By: #### A 1CB, [id number] #### [facility] (DEFAULT) [address] [place] [address] Nitrites Urine Negative Normal Negative [facility] Comment on above: Order Comment: For i ndwelling catheters, specimen collection is acceptable on catheter day 1 and 2 only. ? Performed By: #### A 1CB, [id number] #### [facility] (DEFAULT) [address] [place] [address] pH (U) 7.5 [pH] Abnormal 5.0-7.0 [facility] Comment on above: Order Comment: For i ndwelling catheters, specimen collection is acceptable on catheter day 1 and 2 only. ? Performed By: #### A 1CB, [id number] #### [facility] (DEFAULT) [address] [place] [address] Protein Urine Negative Normal Negative [facility] Comment on above: Order Comment: For i ndwelling catheters, specimen collection is acceptable on catheter day 1 and 2 only. ? Performed By: #### A 1CB, [id number] #### [facility] (DEFAULT) [address] [place] [address] RBC Urine 6-10 Abnormal 0-2 [facility] Comment on above: Order Comment: For i ndwelling catheters, specimen collection is acceptable on catheter day 1 and 2 only. ? Performed By: #### A 1CB, [id number] #### [facility] (DEFAULT) [address] [place] [address] Specific [place] Urine 1.024 Normal 1.001-1.03 5 [facility] Comment on above: Order Comment: For i ndwelling catheters, specimen collection is acceptable on catheter day 1 and 2 only. ? Performed By: #### A 1CB, [id number] #### [facility] (DEFAULT) [address] [place] [address] Squamous/Epithelial Cells, Urine 0-2/hpf Normal 0-2/hpf, 3-5/hpf = 1+ [facility] Comment on above: Order Comment: For i ndwelling catheters, specimen collection is acceptable on catheter day 1 and 2 only. ? Performed By: #### A 1CB, [id number] #### [facility] (DEFAULT) [address] [place] [address] Urobilinogen Urine 0.2 E.U./dL Normal 0.2 E.U/dL, 1.0 E.U/dL [facility] Comment on above: Order Comment: For i ndwelling catheters, specimen collection is acceptable on catheter day 1 and 2 only. ? Performed By: #### A 1CB, [id number] #### [facility] (DEFAULT) [address] [place] [address] WBC Urine 0 - 5 Normal 0 - 5 [facility] Comment on above: Order Comment: For i ndwelling catheters, specimen collection is acceptable on catheter day 1 and 2 only. ? Performed By: #### A 1CB, [id number] #### [facility] (DEFAULT) [address] [place] [address] White blood cell (WBC) count Ordered By: Mihai Woods on 10-18-2024 WBC (Bld) [#/Vol] 8.1 10*3/uL 4.4-11.0 [facility] XR ABDOMEN 1 VIEW PORTABLEon 10-18-2024 XR ABDOMEN 1 VIEW PORTABLE EXAM: XR ABDOMEN 1 VIEW PORTABLE, 10/18/2024 22:48 PM COMPARISON: No prior studies available for comparison. CLINICAL INDICATIONS: DHT placement FINDINGS: Limited field of view radiograph of the upper abdomen was obtained to evaluate enteric tube positioning. The Dobbhoff tube is located with its tip projecting over the distal stomach/gastric antrum. Bowel gas pattern is non-obstructive. No gross free air. IMPRESSION: Tip of the Dobbhoff projects over the distal stomach. Normal [facility] Bacteria Ur Culton 5 Bacteria identified Cx Nom (U) CULTURE, URINE: Mixed microbiota, including predominantly: ORGANISM ID: 1 10,000 -<50,000 CFU/ml Aerococcus urinae No susceptibility testing done. Normal [facility] Comment on above: Performed By: #### 6 30-4 ####[facility] LABCLIA [id number] [address] CNOVon 10-12-2024 CNOV Office Visit (FAMPWS ) BEHZAD HAY ([id number]) 1940 F Date Time Provider Department 10/12/24 11:20 AM TASHA DEUTSCH FAMPWS During your visit today, we recorded the following information about you: Temperature Pulse Blood pressure Weight 97.6 degrees 60/minute 138/82 53.5 kg Tasha Deutsch APRN.AVIATION ELECTRONIC WARFARE OPERATOR 10/12/2024 12:16 PM Signed This is a 84 year old female who presents today with: Patient presents with: UTI: Urinary incontinence at night and some confusion URI: Runny nose HISTORY OF PRESENT ILLNESS: Behzad Hay is a 84 year old female. Patient presents with: UTI: Urinary incontinence at night and some confusion URI: Runny nose In hospital, UTI was identified because of some incontinence and confusion. That has reoccurred. No pain. No fever or chills. No pain. A little unstable. UTI was positive for e coli Some congestion- she attributes to a "cold" PAST MEDICAL HISTORY: PAST MEDICAL HISTORY Diagnosis Date Abnormal CT of the abdomen 01/24/2014 localized perihepatic fluid indeterminate, 4mm density too small for ID, fusiforma sortic ectasia Anemia Arthritis Cerebral degeneration Collagenous colitis Degenerative lumbar disc Dyslipidemia GERD (gastroesophageal reflux disease) H/O colonoscopy 09/23/2014 small internal hemorrhoids otherwise WNL. No further surveillance recommended Hiatal hernia History of esophagogastroduodenoscopy (EGD) 09/23/2014 [facility]: All normal HTN (hypertension) Hyperlipidemia, mixed Osteoarthritis Osteopenia PUD (peptic ulcer disease) 2013 Vitamin D deficiency PAST SURGICAL HISTORY Procedure Laterality Date BUNIONECTOMY, LAPIDUS-TYPE Left 03/30/2007 Dr. Devin LOPEZCTBILL, LAPIDUS-TYPE Right 03/30/2008 Dr. Beltran CATARACT EXTRACTION W/ INTRAOCULAR LENS IMPLANT HX Left 03/31/2003 Dr. Sosa COLONOSCOPY 09/23/2014 colonoscopy Samara Rodarte internal hemorrhoids, otherwise WNL COLONOSCOPY FLX DX W/COLLJ SPEC WHEN PFRMD 09/01/[address] ABDOMEN AND PELVIS W/CONT 01/24/2014 localized yan hepatic unclear etiology, inflammatory vs metastatic disease; EGD 09/23/2014 Dr. Zoe Diana Normal esophagus, z-line, stomach and duodenum ESOPHAGOGASTRODUODENOSCOPY TRANSORAL DIAGNOSTIC 09/01/2020 EYE SURGERY HX INCISE FINGER TENDON SHEATH Right 12/26/2016 Right ring trigger finger release JOINT REPLACEMENT HX LAP UMBILICAL HERNIA REPAIR 02/24/2014 Umbilical hernia repair REMOVE CATARACT, INSERT LENS,EX Right REMV CATARACT EXTRACAP,INSERT LENS Right 03/31/2003 REMV CATARACT EXTRACAP,INSERT LENS Left 02/17/2003 REVJ TOT HIP ARTHRP BTH W/WO AGRFT/ALGRFT Right 05/30/2011 ROTATOR CUFF REPAIR Right 2013 R rotator cuff repair TONSILLECTOMY HX TONSILLECTOMY PRIMARY/SECONDARY Tonsillectomy TOTAL HIP JOINT REPLACEMENT Left 10/03/2014 ALLERGIES Adhesive Tape (Rosins), Bactrim [Sulfamethoxazole-Trimethop rim], Macrobid [Nitrofurantoin Monohyd/M-Cryst], and Wjuiaqw-Xlj-Pzq Reductase Inhibitors MEDICATIONS Current Outpatient Medications Medication Sig acetaminophen (TYLENOL ARTHRITIS PAIN) 650 mg CR tablet Take 650 mg by mouth once daily. Cholecalciferol, Vitamin D3, (VITAMIN D) 25 mcg (1,000 unit) cap Take 1,000 Units by mouth once daily. lisinopril (ZESTRIL) 10 mg tablet Take 10 mg by mouth two times a day. apixaban (ELIQUIS) 2.5 mg tab(s) Take 1 tablet by mouth two times a day. metoprolol tartrate, short acting, (LOPRESSOR) 25 mg tablet Take 1 tablet by mouth two times a day. cyanocobalamin, vitamin B-12, 500 mcg chew Take 1 tablet by mouth once daily. TURMERIC ORAL Take 1 tablet by mouth once daily. Patient should start on September 22, 2024. CAPSICUM, CAYENNE, ORAL Take 1 capsule by mouth once daily. Patient should start on September 22, 2024. FLAXSEED OIL ORAL Take by mouth. GARLIC ORAL Take 1 tablet by mouth once daily. Patient should start on September 22, 2024. cranberry fruit extract (CRANBERRY ORAL) Take 650 mg by mouth once daily. LACTOBACILLUS ACIDOPHILUS (PROBIOTIC ACIDOPHILUS ORAL) Take by mouth. multivitamin ORAL tablet Take 1 tablet by mouth once daily. ZINC ORAL Take 50 mg by mouth once daily. (Patient not taking: Reported on 10/04/2024) estradiol (ESTRACE) 0.01 % (0.1 mg/gram) vaginal cream Apply pea-sized amount to perineum and 1 applicator vaginally Mon, Wed, Fri for atrophic vaginitis. No current facility-administered medications for this visit. FAMILY HISTORY Problem Relation Age of Onset Cancer Mother Hypertension Mother other (CVA) Mother age 86 Heart Father other (CVA) Father age 81 Ischemic Heart Disease Brother age 76 other (CVA) Brother other (ADMISSIONS COUNSELOR shunt) Brother Hypertension Sister Diabetes Sister age 66 (sepsis) Social History Tobacco Use Smoking status: Never Smokeless t (more content not included)... Normal [facility] Cardiology Visit Reporton Cardiology Visit Report Normal [facility] UA DIP, URINE (POC)on 2024 BILIRUBIN UA (POCT) Negative Negative [facility] CLARITY UA (POCT) Clear [facility] COLOR UA (POCT) Yellow [facility] GLUCOSE UA (POCT) Negative Negative mg/dL [facility] Hemoglobin Ql (U) Trace-intact Abnormal Negative [facility] Interpretation and review of laboratory results Abnormal [facility] KETONE UA (POCT) Negative Negative mg/dL [facility] LEUKOCYTES UA (POCT) Negative Negative [facility] NITRITE UA (POCT) Negative Negative [facility] PH UA (POCT) 6 4.5 - 8.0 [facility] Protein Ql (U) Negative Negative mg/dL [facility] SPECIFIC GRAVITY UA (POCT) 1.01 1.005 - 1.030 [facility] UROBILINOGEN UA (POCT) 0.2 Normal E.U./dL [facility] Location:[address], [place], [place], [id number] [place] [address] POINT OF CARE [facility] 10-06-2024 CNPN Telephone (HCSIND) BHARTIBEHZAD Lugo ([id number]) 1940 F Date Time Provider Department 10/06/24 [facility] During your visit today, we recorded the following information about you: Moni Rodríguez, DUSTIN-SUPERVISOR OF INSTRUCTION 10/06/2024 12:10 AM Signed This patient would benefit from continued speech therapy in the outpatient setting upon discharge from home care. I am requesting orders to be placed for outpatient speech therapy services to evaluate and treat for cognitive linguistic deficits and aphasia. The patient's daughter requested the orders be placed so that she can find them in [facility]. Thank you, Moni Rodríguez MA, CCC-SUPERVISOR OF INSTRUCTION Tasha Deutsch APRN.AVIATION ELECTRONIC WARFARE OPERATOR 10/07/2024 7:55 AM Signed Speech ordered Allergies As of Date: 10/06/2024 Noted Allergy Reaction ADHESIVE TAPE (ROSINS) 08/27/2011 2 - Rash BACTRIM (SULFAMETHOXAZOLE-TRIMETH*0 09/25/2018 2 - Rash MACROBID (NITROFURANTOIN MONOHYD/*09/25/2018 2 - Rash GIABRXB-MUY-DHT REDUCTASE INHIBIT*10/06/2014 5 - Intolerance Comments: severe leg pain Date Reviewed: 10/06/2024 Reviewed by: Yola Nj COTA/L - Fully Assessed Reason for Visit: Home Care [4073] Cmt: Requesting out patient's speech therapy orders Primary Visit Diagnosis: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 - Cholecalciferol, Vitamin D3, (VITAMIN D) 25 mcg (1,000 unit) cap Take 1,000 Units by mouth once daily. - lisinopril (ZESTRIL) 10 mg tablet Take 10 mg by mouth two times a day. - ZINC ORAL Take 50 mg by mouth once daily. - apixaban (ELIQUIS) 2.5 mg tab(s) Take 1 tablet by mouth two times a day. - metoprolol tartrate, short acting, (LOPRESSOR) 25 mg tablet Take 1 tablet by mouth two times a day. - cyanocobalamin, vitamin B-12, 500 mcg chew Take 1 tablet by mouth once daily. - estradiol (ESTRACE) 0.01 % (0.1 mg/gram) vaginal cream Apply pea-sized amount to perineum and 1 applicator vaginally Fri, Fri, Fri for atrophic vaginitis. - TURMERIC ORAL Take 1 tablet by mouth once daily. Patient should start on September 22, 2024. - CAPSICUM, CAYENNE, ORAL Take 1 capsule by mouth once daily. Patient should start on September 22, 2024. - FLAXSEED OIL ORAL Take by mouth. - GARLIC ORAL Take 1 tablet by mouth once daily. Patient should start on September 22, 2024. - cranberry fruit extract (CRANBERRY ORAL) Take 650 mg by mouth once daily. - LACTOBACILLUS ACIDOPHILUS (PROBIOTIC ACIDOPHILUS ORAL) Take by mouth. - multivitamin ORAL tablet Take 1 tablet by mouth once daily. Problem List As Of Date 10/06/2024 Noted Resolved Trigger ring finger of right hand [M65.341] 08/15/2016 Injury of extensor tendon of hand [S66.909A] 08/15/2016 Spontaneous rupture of extensor tendon of left *09/23/2016 Acquired trigger finger [M65.30] 12/10/2016 Chronic renal insufficiency, stage 3 (moderate)*02/27/2017 Vitamin D deficiency [E55.9] 02/27/2017 DDD (degenerative disc disease), cervical [M50.*02/27/2017 Primary osteoarthritis of right hip [M16.11] 02/27/2017 Iatrogenic [place]'s disease (HCC) [QMK9361] 07/28/2017 07/06/2018 Collagenous colitis [K52.831] 12/21/2018 IBS (irritable bowel syndrome) [K58.9] 12/21/2018 Hiatal hernia [K44.9] 09/11/2020 Fall from standing [W19.XXXA] 06/05/2021 Rotator cuff tear arthropathy, left [M75.102, M*10/29/2021 Paroxysmal atrial fibrillation (HCC) [I48.0] 04/11/2022 Primary hypertension [I10] 12/30/2022 Acute pain of right shoulder [M25.511] 04/16/2023 Severe pain of left shoulder [M25.512] 04/16/2023 Cervicalgia [M54.2] 04/16/2023 Encounter Status:Closed by WINSOME BUTLER on 10/07/24 Normal [facility]3 [facility] 25-hydroxyvitamin D3 [Mass/Vol] 46.6 ng/mL Normal 31.0-80.0 [facility] Comment on above: Order Comment: Speci men Type: BLOOD SPECIMENOrdering Facility: [facility] Address: [address] [place] [address] [place] [address] Performed By: #### 1 989-3 ####[facility] LABCLIA [id number] [place] [address] [place] Basic metabolic 2000 panelon 10-04-2024 Anion gap [Moles/Vol] 9 mmol/L Normal 8-15 [facility] Comment on above: Order Comment: Speci men Type: BLOOD SPECIMENOrdering Facility: [facility] Address: [address] [place], [place] [address] Performed By: #### 5 0190-8, 99621-2, 2131-12, 2275-07 ####[facility] LABCLIA [id number] [address] [address] [place] Calcium [Mass/Vol] 10.5 mg/dL High 8.5-10.2 [facility] Comment on above: Order Comment: Speci men Type: BLOOD SPECIMENOrdering Facility: [facility] Address: [address] [place] [address] Performed By: #### 5 0190-8, 09179-8, 2131-12, 2275-07 ####[facility] LABCLIA [id number] [place] [id number] [place] Chloride [Moles/Vol] 99 mmol/L Normal 98-107 [facility] Comment on above: Order Comment: Speci men Type: BLOOD SPECIMENOrdering Facility: [facility] Address: [address] [place] [address] Performed By: #### 5 0190-8, 83407-8, 2131-12, 2275-07 ####[facility] LABCLIA [id number] [address] [address] [place] CO2 [Moles/Vol] 26 mmol/L Normal 22-30 [facility] Comment on above: Order Comment: Speci men Type: BLOOD SPECIMENOrdering Facility: [facility] Address: [address] [place], [place] [address] Performed By: #### 5 0190-8, 17232-3, 2131-12, 2275-07 ####[facility] LABCLIA [id number] [facility] [address] [address] [place] Creatinine [Mass/Vol] 0.84 mg/dL Normal 0.58-0.96 [facility] Comment on above: Order Comment: Cheri jimenez Type: BLOOD SPECIMENOrdering Facility: [facility] Address: [address] [place] [address] Performed By: #### 5 0190-8, 14867-6, 2131-12, 2275-07 ####[facility] LABCLIA [id number] [place] [id number] [place] Creatinine and Glomerular filtration rate.predicted panel (S/P/Bld) 68 mL/min/1.73m??? Normal >=60 [facility] Comment on above: Order Comment: Cheri jimenez Type: BLOOD SPECIMENOrdering Facility: [facility] Address: [address] [place] [address] Result Comment: Pattie mated Glomerular Filtration Rate (eGFR) is calculated using the 2020 CKD-EPI creatinine equation. This equation utilizes serum creatinine, sex, and age as parameters. The creatinine assay has traceable calibration to isotope dilution-mass spectrometry. Refer to KDIGO guidelines for clinical interpretation. In patients with unstable renal function, e.g. those with acute kidney injury, the eGFR may not accurately reflect actual GFR. Performed By: #### 5 0190-8, 22786-8, 2131-12, 2275-07 ####[facility] LABCLIA [id number] [address] [address] [place] Glucose [Mass/Vol] 87 mg/dL Normal 74-99 [facility] Comment on above: Order Comment: Cheri jimenez Type: BLOOD SPECIMENOrdering Facility: [facility] Address: [address] [place] [address] Result Comment: The [place] [employer] (ADA) provides guidance for cutoff values for fasting glucose and random glucose. The ADA defines fasting as no caloric intake for at least 8 hours. Fasting plasma glucose results between 100 to 125 mg/dL indicate increased risk for diabetes (prediabetes). Fasting plasma glucose results greater than or equal to 126 mg/dL meet the criteria for diagnosis of diabetes. In the absence of unequivocal hyperglycemia, results should be confirmed by repeat testing. In a patient with classic symptoms of hyperglycemia or hyperglycemic crisis, random plasma glucose results greater than or equal to 200 mg/dL meet the criteria for diagnosis of diabetes. Reference: Standards of Medical Care in Diabetes 2016, [place] [employer]. Diabetes Care. 2016.39(Suppl 1). Performed By: #### 5 0190-8, 15024-6, 2131-12, 2275-07 ####[facility] LABCLIA [id number] [address] [address] [place] Potassium [Moles/Vol] 5.1 mmol/L Normal 3.7-5.1 [facility] Comment on above: Order Comment: Speci men Type: BLOOD SPECIMENOrdering Facility: [facility] Address: [address] [place] [address] Performed By: #### 5 0190-8, 96535-4, 2131-12, 2275-07 ####[facility] LABIA [id number] [place] [address] [place] Sodium [Moles/Vol] 134 mmol/L Low 136-144 [facility] Comment on above: Order Comment: Speci men Type: BLOOD SPECIMENOrdering Facility: [facility] Address: [address] [place] [address] Performed By: #### 5 0190-8, 19697-8, 2131-12, 2275-07 ####[facility] LABIA [id number] [place] [id number] [place] Urea nitrogen [Mass/Vol] 17 mg/dL Normal 7-21 [facility] Comment on above: Order Comment: Speci men Type: BLOOD SPECIMENOrdering Facility: [facility] Address: [address] [place] [address] Performed By: #### 5 0190-8, 33873-8, 2131-12, 2275-07 ####[facility] LABCLIA [id number] [address] [address] [place] CBC W Auto Differential pane l (Bld)on 10-04-2024 Basophils (Bld) [#/Vol] 0.1 10*3/uL [facility] Basophils/100 WBC (Bld) 1.7 % [facility] Differential cell count method Nom (Bld) Auto [facility] Eosinophils (Bld) [#/Vol] 0.25 10*3/uL [facility] Eosinophils/100 WBC (Bld) 4.1 % [facility] Erythrocyte distribution width (RBC) [Ratio] 12.7 % 11.5 - 15.0 % [facility] Hematocrit (Bld) [Volume fraction] 38.7 % 36.0 - 46.0 % [facility] Hemoglobin (Bld) [Mass/Vol] 12.3 g/dL 11.5 - 15.5 g/dL [facility] Immature granulocytes (Bld) [#/Vol] 0.04 10*3/uL [facility] Immature granulocytes/100 WBC (Bld) 0.7 % [facility] Lymphocytes (Bld) [#/Vol] 1.35 10*3/uL [facility] Lymphocytes/100 WBC (Bld) 22.4 % [facility] MCH (RBC) [Entitic mass] 31.3 pg 26.0 - 34.0 pg [facility] MCHC (RBC) [Mass/Vol] 31.8 g/dL 30.5 - 36.0 g/dL [facility] MCV (RBC) [Entitic vol] 98.5 fL 80.0 - 100.0 fL [facility] Monocytes (Bld) [#/Vol] 0.51 10*3/uL [facility] Monocytes/100 WBC (Bld) 8.5 % [facility] Neutrophils (Bld) [#/Vol] 3.78 10*3/uL [facility] Neutrophils/100 WBC (Bld) 62.6 % [facility] Nucleated RBC (Bld) [#/Vol] [facility] Nucleated RBC/100 WBC (Bld) [Ratio] 0 % /100 WBC [facility] Platelet mean volume (Bld) [Entitic vol] 9.8 fL 9.0 - 12.7 fL [facility] Platelets (Bld) [#/Vol] 314 10*3/uL [facility] RBC (Bld) [#/Vol] 3.93 10*6/uL 3.90 - 5.20 m/uL [facility] WBC (Bld) [#/Vol] 6.03 10*3/uL [facility] Basophils (Bld) [#/Vol] 0.10 10*3/uL Normal <0.11 [facility] Comment on above: Order Comment: Speci men Type: BLOOD SPECIMENOrdering Facility: [facility] Address: [address] [place] [address] Performed By: #### 5 7021-8 ####[facility] LABCLIA [id number] [place] [address] [place] Basophils/100 WBC (Bld) 1.7 % Normal [facility] Comment on above: Order Comment: Speci men Type: BLOOD SPECIMENOrdering Facility: [facility] Address: [address] [place] [address] Performed By: #### 5 7021-8 ####[facility] LABCLIA [id number] [place] [address] [place] Differential cell count method Nom (Bld) Auto Normal [facility] Comment on above: Order Comment: Speci men Type: BLOOD SPECIMENOrdering Facility: [facility] Address: [address] [place] [address] Performed By: #### 5 7021-8 ####[facility] LABCLIA [id number] [place] [address] [place] Eosinophils (Bld) [#/Vol] 0.25 10*3/uL Normal <0.46 [facility] Comment on above: Order Comment: Speci men Type: BLOOD SPECIMENOrdering Facility: [facility] Address: [address] [place] [address] Performed By: #### 5 7021-8 ####[facility] LABCLIA [id number] [place] [id number] [place] Eosinophils/100 WBC (Bld) 4.1 % Normal [facility] Comment on above: Order Comment: Speci men Type: BLOOD SPECIMENOrdering Facility: [facility] Address: [address] [place] [address] Performed By: #### 5 7021-8 ####[facility] LABCLIA [id number] [place] [address] [place] Erythrocyte distribution width (RBC) [Ratio] 12.7 % Normal 11.5-15.0 [facility] Comment on above: Order Comment: Speci men Type: BLOOD SPECIMENOrdering Facility: [facility] Address: [address] [place] [address] Performed By: #### 5 7021-8 ####[facility] LABIA [id number] [place] [address] [place] Hematocrit (Bld) [Volume fraction] 38.7 % Normal 36.0-46.0 [facility] Comment on above: Order Comment: Speci men Type: BLOOD SPECIMENOrdering Facility: [facility] Address: [address] [place] [address] Performed By: #### 5 7021-8 ####[facility] LABIA [id number] [place] [address] [place] Hemoglobin (Bld) [Mass/Vol] 12.3 g/dL Normal 11.5-15.5 [facility] Comment on above: Order Comment: Speci men Type: BLOOD SPECIMENOrdering Facility: [facility] Address: [address] [place] [address] Performed By: #### 5 7021-8 ####[facility] LABIA [id number] [place] [address] [place] Immature granulocytes (Bld) [#/Vol] 0.04 10*3/uL Normal <0.10 [facility] Comment on above: Order Comment: Speci men Type: BLOOD SPECIMENOrdering Facility: [facility] Address: [address] [place] [address] Performed By: #### 5 7021-8 ####[facility] LABCLIA [id number] [place] [address] [place] Immature granulocytes/100 WBC (Bld) 0.7 % Normal [facility] Comment on above: Order Comment: Speci men Type: BLOOD SPECIMENOrdering Facility: [facility] Address: [address] [place] [address] Performed By: #### 5 7021-8 ####[facility] LABCLIA [id number] [place] [address] [place] Lymphocytes (Bld) [#/Vol] 1.35 10*3/uL Normal 1.00-4.00 [facility] Comment on above: Order Comment: Speci men Type: BLOOD SPECIMENOrdering Facility: [facility] Address: [address] [place] [address] Performed By: #### 5 7021-8 ####[facility] LABIA [id number] [address] [place] Lymphocytes/100 WBC (Bld) 22.4 % Normal [facility] Comment on above: Order Comment: Speci men Type: BLOOD SPECIMENOrdering Facility: [facility] Address: [address] [place] [address] Performed By: #### 5 7021-8 ####[facility] LABIA [id number] [place] [address] [place] MCH (RBC) [Entitic mass] 31.3 pg Normal 26.0-34.0 [facility] Comment on above: Order Comment: Speci men Type: BLOOD SPECIMENOrdering Facility: [facility] Address: [address] [place] [address] Performed By: #### 5 7021-8 ####[facility] LABCLIA [id number] [place] [id number] [place] MCHC (RBC) [Mass/Vol] 31.8 g/dL Normal 30.5-36.0 [facility] Comment on above: Order Comment: Speci men Type: BLOOD SPECIMENOrdering Facility: [facility] Address: [address] [place] [address] Performed By: #### 5 7021-8 ####[facility] LABCLIA [id number] [address] [address] [place] MCV (RBC) [Entitic vol] 98.5 fL Normal 80.0-100.0 [facility] Comment on above: Order Comment: Speci men Type: BLOOD SPECIMENOrdering Facility: [facility] Address: [address] [place] [address] Performed By: #### 5 7021-8 ####[facility] LABCLIA [id number] [place] [address] [place] Monocytes (Bld) [#/Vol] 0.51 10*3/uL Normal <0.87 [facility] Comment on above: Order Comment: Speci men Type: BLOOD SPECIMENOrdering Facility: [facility] Address: [address] [place] [address] Performed By: #### 5 7021-8 ####[facility] LABCLIA [id number] [place] [address] [place] Monocytes/100 WBC (Bld) 8.5 % Normal [facility] Comment on above: Order Comment: Speci men Type: BLOOD SPECIMENOrdering Facility: [facility] Address: [address] [place] [address] Performed By: #### 5 7021-8 ####[facility] LABCLIA [id number] [place] [address] [place] Neutrophils (Bld) [#/Vol] 3.78 10*3/uL Normal 1.45-7.50 [facility] Comment on above: Order Comment: Speci men Type: BLOOD SPECIMENOrdering Facility: [facility] Address: [address] [place] [address] Performed By: #### 5 7021-8 ####[facility] LABCLIA [id number] [place] [address] [place] Neutrophils/100 WBC (Bld) 62.6 % Normal [facility] Comment on above: Order Comment: Speci men Type: BLOOD SPECIMENOrdering Facility: [facility] Address: [address] [place] [address] Performed By: #### 5 7021-8 ####[facility] LABCLIA [id number] [place] [address] [place] Nucleated RBC (Bld) [#/Vol] 10*3/uL Normal <0.01 [facility] Comment on above: Order Comment: Speci men Type: BLOOD SPECIMENOrdering Facility: [facility] Address: [address] [place] [address] Performed By: #### 5 7021-8 ####[facility] LABIA [id number] [place] [address] [place] Nucleated RBC/100 WBC (Bld) [Ratio] 0.0 /100 WBC Normal [facility] Comment on above: Order Comment: Speci men Type: BLOOD SPECIMENOrdering Facility: [facility] Address: [address] [place] [address] Performed By: #### 5 7021-8 ####[facility] LABIA [id number] [place] [address] [place] Platelet mean volume (Bld) [Entitic vol] 9.8 fL Normal 9.0-12.7 [facility] Comment on above: Order Comment: Speci men Type: BLOOD SPECIMENOrdering Facility: [facility] Address: [address] [place] [address] Performed By: #### 5 7021-8 ####[facility] LABIA [id number] [place] [address] [place] Platelets (Bld) [#/Vol] 314 10*3/uL Normal 150-400 [facility] Comment on above: Order Comment: Speci men Type: BLOOD SPECIMENOrdering Facility: [facility] Address: [address] [place] [address] Performed By: #### 5 7021-8 ####[facility] LABIA [id number] [place] [address] [place] RBC (Bld) [#/Vol] 3.93 10*6/uL Normal 3.90-5.20 [facility] Comment on above: Order Comment: Speci men Type: BLOOD SPECIMENOrdering Facility: [facility] Address: [address] [place] [address] Performed By: #### 5 7021-8 ####[facility] LABIA [id number] [place] [address] [place] WBC (Bld) [#/Vol] 6.03 10*3/uL Normal 3.70-11.00 [facility] Comment on above: Order Comment: Speci men Type: BLOOD SPECIMENOrdering Facility: [facility] Address: [address] [place] [address] Performed By: #### 5 7021-8 ####[facility] LABIA [id number] [address] [place] CNOVon 10-04-2024 CNOV Office Visit (FAMPWS ) BEHZAD AHY ([id number]) 1940 F Date Time Provider Department 10/04/24 10:40 AM TASHA DEUTSCH FAMPWS During your visit today, we recorded the following information about you: Pulse Blood pressure Weight 46/minute 136/62 51.7 kg Tsaha DeutschEAN.AVIATION ELECTRONIC WARFARE OPERATOR 10/04/2024 11:22 AM Signed This is a 84 year old female who presents today with: Patient presents with: Hospital F/U HISTORY OF PRESENT ILLNESS: Behzad Hay is a 84 year old female. 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 Wanting to consider Watchman's. Went to rehab. Feeling good. Daughter here and helping her at home for now. Pt. Also concerned with previous myalgia from statin, not wanting to ever take one again. Tolerated in rehab. Willing to trial Mo-We-and Fr. Behzad Hay is an 84-year-old female with a history of CVA and AFib, accompanied by her daughter who is providing history on her behalf, presenting for follow-up after hospitalization. CVA: - Recent hospitalization for CVA. - Currently receiving speech therapy twice a week. - Reports loss of math and writing skills. - Denies headaches, diplopia, or chest pain. - No recent weight loss or gain; maintains weight at 115 lbs. - Denies fever, chills, or dyspnea. - Denies dysuria or hematuria. - Denies hopelessness, helplessness, or suicidal ideation. AFib: - Currently taking Eliquis. - Scheduled for a cardiology appointment on October 12 to discuss the Watchman procedure. Hyperlipidemia: - History of severe myalgia with statin use 5-10 years ago; advised by Dr. Harrington to avoid statins. - Discharged from the hospital with atorvastatin 40 mg daily; hesitant to restart due to previous adverse reaction. UTI: - Recent UTI during hospitalization; presented with dysarthria and confusion. PAST MEDICAL HISTORY: PAST MEDICAL HISTORY Diagnosis Date Abnormal CT of the abdomen 01/24/2014 localized perihepatic fluid indeterminate, 4mm density too small for ID, fusiforma sortic ectasia Anemia Arthritis Cerebral degeneration (HCC) Collagenous colitis Degenerative lumbar disc Dyslipidemia GERD (gastroesophageal reflux disease) H/O colonoscopy 09/23/2014 small internal hemorrhoids otherwise WNL. No further surveillance recommended Hiatal hernia History of esophagogastroduodenoscopy (EGD) 09/23/2014 Ashish Garcia: All normal HTN (hypertension) Hyperlipidemia, mixed Osteoarthritis Osteopenia PUD (peptic ulcer disease) 2013 Vitamin D deficiency PAST SURGICAL HISTORY Procedure Laterality Date BUNIONECTOMY, LAPIDUS-TYPE Left 03/30/2007 Dr. Devin LOPEZCTOMY, LAPIDUS-TYPE Right 03/30/2008 Dr. Beltran CATARACT EXTRACTION W/ INTRAOCULAR LENS IMPLANT HX Left 03/31/2003 Dr. Sosa COLONOSCOPY 09/23/2014 colonoscopy Samara Rodarte internal hemorrhoids, otherwise WNL COLONOSCOPY FLX DX W/COLLJ SPEC WHEN PFRMD 09/01/[address] ABDOMEN AND PELVIS W/CONT 01/24/2014 localized yan hepatic unclear etiology, inflammatory vs metastatic disease; EGD 09/23/2014 Dr. Zoe Diana Normal esophagus, z-line, stomach and duodenum ESOPHAGOGASTRODUODENOSCOPY TRANSORAL DIAGNOSTIC 09/01/2020 EYE SURGERY HX INCISE FINGER TENDON SHEATH Right 12/26/2016 Right ring trigger finger release JOINT REPLACEMENT HX LAP UMBILICAL HERNIA REPAIR 02/24/2014 Umbilical hernia repair REMOVE CATARACT, INSERT LENS,EX Right REMV CATARACT EXTRACAP,INSERT LENS Right 03/31/2003 REMV CATARACT EXTRACAP,INSERT LENS Left 02/17/2003 REVJ TOT HIP ARTHRP BTH W/WO AGRFT/ALGRFT Right 05/30/2011 ROTATOR CUFF REPAIR Right 2013 R rotator cuff repair TONSILLECTOMY HX TONSILLECTOMY PRIMARY/SECONDARY Tonsillectomy TOTAL HIP JOINT REPLACEMENT Left 10/03/2014 ALLERGIES Adhesive Tape (Rosins), Bactrim [Sulfamethoxazole-Trimethop rim], Macrobid [Nitrofurantoin Monohyd/M-Cryst], and Pupkhqc-Dbk-Psy Reductase Inhibitors MEDICATIONS Current Outpatient Medications Medication Sig MELATONIN ORAL Take by mouth. ferrous sulfate 325 mg (65 mg iron) tablet Take 1 tablet by mouth every other day. acetaminophen (TYLENOL ARTHRITIS PAIN) 650 mg CR tablet Take 650 mg by mouth once daily. Cholecalciferol, Vitamin D3, (VITAMIN D) 25 mcg (1,000 unit) cap Take 1,000 Units by mouth once daily. lisinopril (ZESTRIL) 10 mg tablet Take 10 mg by mouth two times a day. apixaban (ELIQUIS) 2.5 mg tab(s) Take 1 tablet by mouth two times a day. metoprolol tartrate, short acting, (LOPRESSOR) 25 mg tablet Take 1 tablet by mouth two times a day. cyanocobalamin, vitamin B-12, 500 mcg chew Take 1 tablet by mouth once daily. TURMERIC ORAL Take 1 tablet by mouth once daily. Patient should start on September 22, 2024. CAPSICUM, CAYENNE (more content not included)... Normal [facility] Ferritin SerPl-ncon 2024 Ferritin [Mass/Vol] 91.0 ng/mL Normal 14.7-205.1 [facility] Comment on above: Order Comment: Speci men Type: BLOOD SPECIMENOrdering Facility: [facility] Address: [address] [place] [address] Performed By: #### 5 0190-8, 18348-0, 2131-12, 2275-07 ####[facility] LABIA [id number] [place] [id number] [place] Iron and Iron binding capaci panel 10-04-2024 Iron [Mass/Vol] 92 ug/dL Normal 41-186 [facility] Comment on above: Order Comment: Speci men Type: BLOOD SPECIMENOrdering Facility: [facility] Address: [address] [place] [address] Performed By: #### 5 0190-8, 08113-1, 2131-12, 2275-07 ####[facility] LABIA [id number] [place] [address] [place] Iron binding capacity [Mass/Vol] 308 ug/dL Normal 232-386 [facility] Comment on above: Order Comment: Speci men Type: BLOOD SPECIMENOrdering Facility: [facility] Address: [address] [place] [address] Performed By: #### 5 0190-8, 07913-9, 2131-12, 2275-07 ####[facility] LABIA [id number] [place] [id number] [place] Iron/TIBC [Molar ratio] 29.9 % Normal 15.0-57.0 [facility] Comment on above: Order Comment: Cheri jimenez Type: BLOOD SPECIMENOrdering Facility: [facility] Address: [address] [place], [place] [address] Performed By: #### 5 0190-8, 07070-6, 2131-9, 2275-4 ####[facility] LABCLIA [id number] [place] [id number] [facility] [place] Neurology Visit Reporton Neurology Visit Report Normal [facility] Vit B12 SerPl-ncon 025 Cobalamin (Vitamin B12) [Mass/Vol] 1442 pg/mL High 232-1245 [facility] Comment on above: Order Comment: Cheri jimenez Type: BLOOD SPECIMENOrdering Facility: [facility] Address: [address] [place] [address] Performed By: #### 5 0190-8, 44038-6, 9, 4 ####[facility] LABCLIA [id number] [address] [address] [facility] CNPNon 09-27-2024 CNPN Telephone (HCSIND) BHARTIBEHZAD ([id number]) 1940 F Date Time Provider Department 09/27/24 TASHA DEUTSCH HCSIND During your visit today, we recorded the following information about you: Nicole Garcia 09/27/2024 11:50 AM Signed There has been a delay in service for Home Care OT Evaluation for this patient due to schedule conflict. Patient was notified on 09/27/24. Thank you for this referral, please contact us with any questions. Moses Elmore MD 09/27/2024 12:01 PM Signed Noted. Allergies As of Date: 09/27/2024 Noted Allergy Reaction ADHESIVE TAPE (ROSINS) 08/27/2011 2 - Rash BACTRIM (SULFAMETHOXAZOLE-TRIMETH*0 09/25/2018 2 - Rash MACROBID (NITROFURANTOIN MONOHYD/*09/25/2018 2 - Rash YLXHNZM-SII-FWU REDUCTASE INHIBIT*10/06/2014 5 - Intolerance Comments: severe leg pain Date Reviewed: 09/25/2024 Reviewed by: Meseret Rahman PT - Fully Assessed Prescriptions as of 09/27/2024 - ferrous sulfate 325 mg (65 mg iron) tablet Take 1 tablet by mouth every other day. - atorvastatin (LIPITOR) 40 mg tablet Take 1 tablet by mouth once daily. - acetaminophen (TYLENOL ARTHRITIS PAIN) 650 mg CR tablet Take 650 mg by mouth once daily. - Cholecalciferol, Vitamin D3, (VITAMIN D) 25 mcg (1,000 unit) cap Take 1,000 Units by mouth once daily. - lisinopril (ZESTRIL) 10 mg tablet Take 10 mg by mouth once daily. - ZINC ORAL Take 50 mg by mouth once daily. - apixaban (ELIQUIS) 2.5 mg tab(s) Take 1 tablet by mouth two times a day. - metoprolol tartrate, short acting, (LOPRESSOR) 25 mg tablet Take 1 tablet by mouth two times a day. - cyanocobalamin, vitamin B-12, 500 mcg chew Take 1 tablet by mouth once daily. - estradiol (ESTRACE) 0.01 % (0.1 mg/gram) vaginal cream Apply pea-sized amount to perineum and 1 applicator vaginally Fri, Fri, Fri for atrophic vaginitis. - TURMERIC ORAL Take 1 tablet by mouth once daily. Patient should start on September 22, 2024. - CAPSICUM, CAYENNE, ORAL Take 1 capsule by mouth once daily. Patient should start on September 22, 2024. - FLAXSEED OIL ORAL Take by mouth. - GARLIC ORAL Take 1 tablet by mouth once daily. Patient should start on September 22, 2024. - cranberry fruit extract (CRANBERRY ORAL) Take 650 mg by mouth once daily. - LACTOBACILLUS ACIDOPHILUS (PROBIOTIC ACIDOPHILUS ORAL) Take by mouth. - multivitamin ORAL tablet Take 1 tablet by mouth once daily. Problem List As Of Date 09/27/2024 Noted Resolved Trigger ring finger of right hand [M65.341] 08/15/2016 Injury of extensor tendon of hand [S66.909A] 08/15/2016 Spontaneous rupture of extensor tendon of left *09/23/2016 Acquired trigger finger [M65.30] 12/10/2016 Chronic renal insufficiency, stage 3 (moderate)*02/27/2017 Vitamin D deficiency [E55.9] 02/27/2017 DDD (degenerative disc disease), cervical [M50.*02/27/2017 Primary osteoarthritis of right hip [M16.11] 02/27/2017 Iatrogenic [place]'s disease (HCC) [FXY2349] 07/28/2017 07/06/2018 Collagenous colitis [K52.831] 12/21/2018 IBS (irritable bowel syndrome) [K58.9] 12/21/2018 Hiatal hernia [K44.9] 09/11/2020 Fall from standing [W19.XXXA] 06/05/2021 Rotator cuff tear arthropathy, left [M75.102, M*10/29/2021 Paroxysmal atrial fibrillation (HCC) [I48.0] 04/11/2022 Primary hypertension [I10] 12/30/2022 Acute pain of right shoulder [M25.511] 04/16/2023 Severe pain of left shoulder [M25.512] 04/16/2023 Cervicalgia [M54.2] 04/16/2023 Encounter Status:Closed by MOSES ROSS on 09/27/[address] [facility] 09-24-2024 [facility] BEH[facility]AD [facility] ([id number]) 1940 F Date Time Provider Department 09/24/24 [facility] DEUTSCH [facility] During your visit today, we recorded the following information about you: GetTasha APRN.CNP 09/24/2024 12:45 PM Signed Patient was admitted to [facility] on August 22, 2024 and discharged September 19, 2024 with a stroke. 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 Diastolic function is indeterminate. Left atrium is mildly enlarged. Mild focal mitral valve calcification of the posterior leaflet Mildly calcified aortic valve with aortic valve sclerosis no stenosis Mildly calcified aortic root Patient has a history of chronic renal failure with a history of atrial fibrillation refused anticoagulation in the past, osteoarthritis, declining memory, hypertension, who presented to the emergency room August 16 with complaints of confusion. She had previous episodes of confusion but the family felt this was worse. In the emergency room her NIH was 0 and she was awake and alert answering questions following commands. Initial blood pressure was elevated at 164/104. A noncontrast brain CT showed no acute intracranial abnormality but did show chronic age-related microvascular ischemic changes. Chest x-ray no acute findings EKG showed atrial fibrillation with a rate of 100. Workup for infection was negative. She was discharged home and follow-up with primary care provider. She returned on August 18, 2024 with continued confusion and weakness in the right arm and leg. CTA of the head and neck that date was suspicious for acute infarct along the high left parietal lobe with hypodensity in the left caudate nucleus possible secondary to remote lacunar infarct. 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 MRI confirmed the acute infarct in the left frontal parietal lobe compatible with MCA distribution. She was admitted to the hospital service. LDL was 112, TSH 1.6. She was started on high intensity statin with Lipitor 40 mg at bedtime. Transthoracic echocardiogram showed left ventricular ejection fraction of 65% and mild left atrial enlargement. There is no significant valvular heart disease and diastolic function was indeterminate. Telemetry neurologist recommended aspirin and Plavix for 3 weeks and then discontinue Plavix using aspirin alone. 30-day event monitor was recommended however she had a history of paroxysmal atrial fibs and had paroxysmal atrial fibs while in thehospital on telemetry. She was started on Eliquis and antiplatelet agents were discontinued. Behzad was discharged to acute inpatient rehab August 22. Patient was mildly anemic upon arrival to rehab. Hemoccult stool positive. Her daughter was able to locate her last colonoscopy and she had only internal and external hemorrhoids. Denied any nausea vomiting or gastric pain. Eliquis continued. Hemoglobin remained stable. Discharged from rehab hemoglobin 11.1. During rehab she had 2 episodes of acute cystitis both E. coli. Both treated with cephalosporin and resolved. Behzad stay on rehab with otherwise unremarkable and she made good progress. DME discharge included 3-1 commode and rollator walker. WBC 5.6, hemoglobin 11.1, hematocrit 34.5, platelet count 249 Sodium 140, potassium 4.3, BUN 19, creatinine 0.98, glucose 101 Tasha Deutsch APRN.AVIATION ELECTRONIC WARFARE OPERATOR 11/09/2024 5:27 PM Signed Patient was discharged on cephalexin 500 mg every 8 hours for 5 days, ferrous sulfate 325 mg every other day, lisinopril 10 mg twice daily, metoprolol tartrate 25 mg twice daily, cholecalciferol 25 mcg daily, apixaban 2.5 mg twice daily. These were dosage changes From rehabilitation. Allergies As of Date: 09/24/2024 Noted Allergy Reaction ADHESIVE TAPE (ROSINS) 08/27/2011 2 - Rash BACTRIM (SULFAMETHOXAZOLE-TRIMETH*0 09/25/2018 2 - Rash MACROBID (NITROFURANTOIN MONOHYD/*09/25/2018 2 - Rash [id number] REDUCTASE INHIBIT*10/06/2014 5 - Intolerance Comments: severe leg pain Date Reviewed: 09/22/2024 Reviewed by: Jocelyn Hernandez, RN - Fully Assessed Prescriptions as of 11/09/2024 - acetaminophen (TYLENOL ARTHRITIS PAIN) 650 mg CR tablet Take 650 mg by mouth once daily. - Cholecalciferol, Vitamin D3, (VITAMIN D) 25 mcg (1,000 unit) cap Take 1,000 Units by mouth o (more content not included)... Normal [facility] 09-23-2024 [facility] BE[facility] ([id number]) 1940 F Date Time Provider Department 09/23/24 CESAR JONES During your visit today, we recorded the following information about you: Cesar Jones LSW 09/23/2024 1:02 PM Signed 09/23/24 MECHANICAL PRODUCT DESIGN ENGINEER called the pt.'s daughter Aditi Carvalho regarding community resources for the pt. The pt.'s daughter stated that she lives in [place] but her brother the pt.'s son lives close to the pt. She stated that she has been staying with the pt. and that they have hired Aide(s) from [employer] to stay next week with the pt. 24 hrs a day. The pt.'s daughter stated that the pt. was doing ok at night and they will see how the pt. is doing after next week. MECHANICAL PRODUCT DESIGN ENGINEER asked about the pt. being and if her was a [place]. The pt.'s daughter stated the pt.'s was not a [place]. The pt.'s daughter stated they were looking for a private Aide not through an Agency. MECHANICAL PRODUCT DESIGN ENGINEER discussed [employer] and the pt.'s daughter stated her [id number] was looking on [employer]. She stated her [id number] had a in her family. MECHANICAL PRODUCT DESIGN ENGINEER asked the pt.'s daughter if the pt. belonged to a jainism and possibly asking the jainism of anyone. The pt.'s daughter stated the pt. does belong to a jainism. MECHANICAL PRODUCT DESIGN ENGINEER discussed Direction Home [facility] on Aging AND Disabilities for PASSPORT. The pt.'s daughter was aware of PASSPORT and stated the pt. did not meet financial guidelines for Medicaid. MECHANICAL PRODUCT DESIGN ENGINEER asked the pt.'s daughter if the pt. owns her home and educated on Estate Recovery on PASSPORT. MECHANICAL PRODUCT DESIGN ENGINEER asked about transportation and family is able to get the pt. to appointments. MECHANICAL PRODUCT DESIGN ENGINEER discussed Home Delivered Meal providers and the Aides will make the pt.'s meals. MECHANICAL PRODUCT DESIGN ENGINEER asked the pt.'s daughter if the pt. had an ER Medical Alert and she stated they were going to look into this. MECHANICAL PRODUCT DESIGN ENGINEER educated on getting an ER Medical Alert through [facility]. The pt.'s daughter wanted MECHANICAL PRODUCT DESIGN ENGINEER to Email her information on ER Medical Alert providers. Her Email: [email or web address] The pt.'s daughter stated she just wanted to know about community resources and she feels they are managing the pt.'s care and the pt. having the hired Aide starting next week. MECHANICAL PRODUCT DESIGN ENGINEER provided the pt.'s daughter with her name and phone number. 09/23/24 MECHANICAL PRODUCT DESIGN ENGINEER Emailed the pt.'s daughter information on getting an ER Medical Alert through [facility] and other ER Medical Alerts and website for [employer] [place] on Aging. Thank You, Allergies As of Date: 09/23/2024 Noted Allergy Reaction ADHESIVE TAPE (ROSINS) 08/27/2011 2 - Rash BACTRIM (SULFAMETHOXAZOLE-TRIMETH*0 09/25/2018 2 - Rash MACROBID (NITROFURANTOIN MONOHYD/*09/25/2018 2 - Rash [id number] REDUCTASE INHIBIT*10/06/2014 5 - Intolerance Comments: severe leg pain Date Reviewed: 09/22/2024 Reviewed by: Jocelyn Hernandez RN - Fully Assessed Reason for Visit: Home Care [4073] Prescriptions as of 09/23/2024 - acetaminophen (TYLENOL ARTHRITIS PAIN) 650 mg CR tablet Take 650 mg by mouth once daily. - Cholecalciferol, Vitamin D3, (VITAMIN D) 25 mcg (1,000 unit) cap Take 1,000 Units by mouth once daily. - lisinopril (ZESTRIL) 10 mg tablet Take 10 mg by mouth once daily. - ZINC ORAL Take 50 mg by mouth once daily. - apixaban (ELIQUIS) 2.5 mg tab(s) Take 1 tablet by mouth two times a day. - metoprolol tartrate, short acting, (LOPRESSOR) 25 mg tablet Take 1 tablet by mouth two times a day. - cyanocobalamin, vitamin B-12, 500 mcg chew Take 1 tablet by mouth once daily. - estradiol (ESTRACE) 0.01 % (0.1 mg/gram) vaginal cream Apply pea-sized amount to perineum and 1 applicator vaginally Fri, Fri, Fri for atrophic vaginitis. - TURMERIC ORAL Take 1 tablet by mouth once daily. Patient should start on September 22, 2024. - CAPSICUM, CAYENNE, ORAL Take 1 capsule by mouth once daily. Patient should start on September 22, 2024. - FLAXSEED OIL ORAL Take by mouth. - GARLIC ORAL Take 1 tablet by mouth once daily. Patient should start on September 22, 2024. - cranberry fruit extract (CRANBERRY ORAL) Take 650 mg by mouth once daily. - LACTOBACILLUS ACIDOPHILUS (PROBIOTIC ACIDOPHILUS ORAL) Take by mouth. - multivitamin ORAL tablet Take 1 tablet by mouth once daily. Problem List As Of Date 09/23/2024 Noted Resolved Trigger ring finger of right hand [M65.341] 08/15/2016 Injury of extensor tendon of hand [S66.909A] 08/15/2016 Spontaneous rupture of extensor tendon of left *09/23/2016 Acquired trigger finger [M65.30] 12/10/2016 Chronic renal insufficiency, stage 3 (moderate)*02/27/2017 Vitamin D deficiency [E55.9] 02/27/2017 DDD (degenerative disc disease), cervical [M50.*02/27/2017 Primary osteoarthritis of right hip [M16.11] 02/27/2017 Iatrogenic [place] Lib[place]'s disease (HCC) [[id number]] 07/28/2017 07/06/2018 Collagenous colitis [K52.831] 12/21/2018 IBS (irritable bowel syn (more content not included)... Normal [facility] CNCAjit 09-22-2024 CNCO Letter Text Normal [facility] CNPChelsea 09-21-2024 CNPN Telephone ([facility]) BHARTIBEHZAD Lugo ([id number]) 1940 F Date Time Provider Department 09/21/24 NGA MCCALL [facility] During your visit today, we recorded the following information about you: Nga Mccall RN 09/21/2024 11:49 AM Signed Patient daughter called in asking for status of her appointment date and time. Allergies As of Date: 09/21/2024 Noted Allergy Reaction ADHESIVE TAPE (ROSINS) 08/27/2011 2 - Rash BACTRIM (SULFAMETHOXAZOLE-TRIMETH*0 09/25/2018 2 - Rash MACROBID (NITROFURANTOIN MONOHYD/*09/25/2018 2 - Rash [id number]-[id number]-VQK REDUCTASE INHIBIT*10/06/2014 5 - Intolerance Date Reviewed: 04/26/2024 Reviewed by: Tasha Deutsch APRN.AVIATION ELECTRONIC WARFARE OPERATOR - Fully Assessed Prescriptions as of 09/21/2024 - apixaban (ELIQUIS) 2.5 mg tab(s) Take 1 tablet by mouth two times a day. - metoprolol tartrate, short acting, (LOPRESSOR) 25 mg tablet Take 1 tablet by mouth two times a day. - atorvastatin (LIPITOR) 40 mg tablet Take 1 tablet by mouth once daily. - lisinopril (ZESTRIL) 30 mg tablet Take 1 tablet by mouth once daily. - cyanocobalamin, vitamin B-12, 500 mcg chew Take 1 tablet by mouth once daily. - solifenacin (VESICARE) 5 mg tablet Take 1 tablet by mouth once daily. - estradiol (ESTRACE) 0.01 % (0.1 mg/gram) vaginal cream Apply pea-sized amount to perineum and 1 applicator vaginally Mon, Wed, Fri for atrophic vaginitis. - acetaminophen (TYLENOL EXTRA STRENGTH) 500 mg tablet Take 2 tablets by mouth two times a day as needed for pain. - TURMERIC ORAL Take by mouth. - CAPSICUM, CAYENNE, ORAL Take by mouth. - ascorbic acid/bioflavonoids (JENNIE C ORAL) Take by mouth. - FLAXSEED OIL ORAL Take by mouth. - GARLIC ORAL Take by mouth. - propylene glycol/peg 400 (SYSTANE ULTRA OPHTHALMIC) Use in eyes. - Zinc 50 mg tab Take by mouth once daily. - cranberry fruit extract (CRANBERRY ORAL) Take 650 mg by mouth once daily. - LACTOBACILLUS ACIDOPHILUS (PROBIOTIC ACIDOPHILUS ORAL) Take by mouth. - cholecalciferol (VITAMIN D3) 5,000 unit tab Take 5,000 Units by mouth once daily. - multivitamin ORAL tablet Take 1 tablet by mouth once daily. Problem List As Of Date 09/21/2024 Noted Resolved Trigger ring finger of right hand [M65.341] 08/15/2016 Injury of extensor tendon of hand [S66.909A] 08/15/2016 Spontaneous rupture of extensor tendon of left *09/23/2016 Acquired trigger finger [M65.30] 12/10/2016 Chronic renal insufficiency, stage 3 (moderate)*02/27/2017 Vitamin D deficiency [E55.9] 02/27/2017 DDD (degenerative disc disease), cervical [M50.*02/27/2017 Primary osteoarthritis of right hip [M16.11] 02/27/2017 Iatrogenic [place] Libory's disease (HCC) [HOQ8208] 07/28/2017 07/06/2018 Collagenous colitis [K52.831] 12/21/2018 IBS (irritable bowel syndrome) [K58.9] 12/21/2018 Hiatal hernia [K44.9] 09/11/2020 Fall from standing [W19.XXXA] 06/05/2021 Rotator cuff tear arthropathy, left [M75.102, M*10/29/2021 Paroxysmal atrial fibrillation (HCC) [I48.0] 04/11/2022 Primary hypertension [I10] 12/30/2022 Acute pain of right shoulder [M25.511] 04/16/2023 Severe pain of left shoulder [M25.512] 04/16/2023 Cervicalgia [M54.2] 04/16/2023 Encounter Status:Closed by NGA MCCALL on 09/21/24 Normal [facility] CNCOon 09-20-2024 CNCO Letter Text Normal [facility] Anion gap in Serum or Plasma Ordered By: Behzad Dorado on 09-17-2024 Anion gap [Moles/Vol] 9 mmol/L 08-26 [facility] BUN/creatinine ratioOrdered By: Behzad Dorado on 09-17-2024 Urea nitrogen/Creatinine [Mass ratio] 19.3 mg/mg 01-31 [facility] Basic Metabolic Profile (BMP )on 09-17-2024 BUN/CRE 19.3 RATIO Normal 01-31 [facility] Comment on above: Performed By: #### L 100.0500, L500.2500 ####[facility] [address] [place], [address] Calcium [Mass/Vol] 9.3 mg/dL Normal 7.6-11.0 [facility] Comment on above: Performed By: #### L 100.0500, L500.2500 ####[facility] [address] [place], [address] Chloride [Moles/Vol] 105 mmol/L Normal 98-108 [facility] Comment on above: Performed By: #### L 100.0500, L500.2500 ####[facility] [address] [place], [address] CO2 [Moles/Vol] 25.4 mmol/L Normal 21.0-32.0 [facility] Comment on above: Performed By: #### L 100.0500, L500.2500 ####[facility] [address] [place], [address] Creatinine [Mass/Vol] 0.98 mg/dL Normal 0.70-1.20 [facility] Comment on above: Performed By: #### L 100.0500, L500.2500 ####[facility] [address] [place], [address] ECRCL 32.59 ml/min Low 50-250 [facility] Comment on above: Performed By: #### L 100.0500, L500.2500 ####[facility] [address] [place], [address] GAP 9 Normal 5-15 [facility] Comment on above: Performed By: #### L 100.0500, L500.2500 ####[facility] [address] [place], [address] GFR/1.73 sq M.predicted among non-blacks MDRD (S/P/Bld) [Vol rate/Area] 56 mL/min/{1.73_m2} Low >60 [facility] Comment on above: Result Comment: mL/m in/1.73m2 CKD-EPI Creatinine Equation (2020) Performed By: #### L 100.0500, L500.2500 ####[facility] [address] [place], [address] Glucose [Mass/Vol] 101 mg/dL High 70-99 [facility] Comment on above: Performed By: #### L 100.0500, L500.2500 ####[facility] [address] [place], [address] Potassium [Moles/Vol] 4.3 mmol/L Normal 3.3-5.1 [facility] Comment on above: Performed By: #### L 100.0500, L500.2500 ####[facility] [address] [place], [address] Sodium [Moles/Vol] 140 mmol/L Normal 133-145 [facility] Comment on above: Performed By: #### L 100.0500, L500.2500 ####[facility] [address] [place], [address] Urea nitrogen [Mass/Vol] 19 mg/dL Normal 4-19 [facility] Comment on above: Performed By: #### L 100.0500, L500.2500 ####[facility] [address] [place], [address] CBC-Complete Blood Cnt No Di ffon 09-17-2024 Erythrocyte distribution width (RBC) [Ratio] 12.4 % Normal 11.6-14.6 [facility] Comment on above: Performed By: #### L 100.0500, L500.2500 ####[facility] [address] [place], [address] Hematocrit (Bld) [Volume fraction] 34.5 % Low 37-47 [facility] Comment on above: Performed By: #### L 100.0500, L500.2500 ####[facility] [address] [place], [address] Hemoglobin (Bld) [Mass/Vol] 11.1 g/dL Low 12.0-15.0 [facility] Comment on above: Performed By: #### L 100.0500, L500.2500 ####[facility] [address] [place], [address] MCH (RBC) [Entitic mass] 31.0 pg Normal 27.0-32.0 [facility] Comment on above: Performed By: #### L 100.0500, L500.2500 ####[facility] [address] [place], [address] MCHC (RBC) [Mass/Vol] 32.2 g/dL Normal 32-36 [facility] Comment on above: Performed By: #### L 100.0500, L500.2500 ####[facility] [address] [place], [address] MCV (RBC) [Entitic vol] 96.4 fL Normal 81-99 [facility] Comment on above: Performed By: #### L 100.0500, L500.2500 ####[facility] [address] [place], [address] Platelet mean volume (Bld) [Entitic vol] 9.2 fL Normal 6.2-12.0 [facility] Comment on above: Performed By: #### L 100.0500, L500.2500 ####[facility] [address] [place], [address] Platelets (Bld) [#/Vol] 249 10*3/uL Normal 150-450 [facility] Comment on above: Performed By: #### L 100.0500, L500.2500 ####[facility] [address] [place], [address] RBC (Bld) [#/Vol] 3.58 10*6/uL Low 4.2-5.4 [facility] Comment on above: Performed By: #### L 100.0500, L500.2500 ####[facility] [address] [place], [address] RDW SD 43.9 fl Normal 35.1-43.9 [facility] Comment on above: Performed By: #### L 100.0500, L500.2500 ####[facility] [address] [place], [address] WBC (Bld) [#/Vol] 5.6 10*3/uL Normal 4.4-11.0 [facility] Comment on above: Performed By: #### L 100.0500, L500.2500 ####[facility] [address] [place], [address] CNPNon 09-17-2024 [facility] Telephone ([facility]) BEHZAD HAY ([id number]) 1940 F Date Time Provider Department 09/17/24 ASAD BUTLER HCSIND During your visit today, we recorded the following information about you: Tamela James 09/17/2024 1:50 PM Signed Date/Time: 09/17/2024 1:48 PM Spoke with ADITI CARVALHO@ phone #: [phone] - Preferred # for contact: ADITI CARVALHO@ phone #: [phone] Have you received help from a home care company in the last 60 days? NO Are you agreeable to [facility] services? YES [address] will we be seeing you at? [address] [facility] [address] Do you have any upcoming appointments or things we need to schedule around? NO Do you have a teachable CG or can you manage your care independently? CG Who? FAMILY Allergies As of Date: 09/17/2024 Noted Allergy Reaction ADHESIVE TAPE (ROSINS) 08/27/2011 2 - Rash BACTRIM (SULFAMETHOXAZOLE-TRIMETH*0 09/25/2018 2 - Rash MACROBID (NITROFURANTOIN MONOHYD/*09/25/2018 2 - Rash [id number]-[id number]-FKM REDUCTASE INHIBIT*10/06/2014 5 - Intolerance Date Reviewed: 04/26/2024 Reviewed by: Tasha Deutsch APRN.AVIATION ELECTRONIC WARFARE OPERATOR - Fully Assessed Reason for Visit: Home Care [4073] Cmt: Confirmation Call Prescriptions as of 09/17/2024 - apixaban (ELIQUIS) 2.5 mg tab(s) Take 1 tablet by mouth two times a day. - metoprolol tartrate, short acting, (LOPRESSOR) 25 mg tablet Take 1 tablet by mouth two times a day. - atorvastatin (LIPITOR) 40 mg tablet Take 1 tablet by mouth once daily. - lisinopril (ZESTRIL) 30 mg tablet Take 1 tablet by mouth once daily. - cyanocobalamin, vitamin B-12, 500 mcg chew Take 1 tablet by mouth once daily. - solifenacin (VESICARE) 5 mg tablet Take 1 tablet by mouth once daily. - estradiol (ESTRACE) 0.01 % (0.1 mg/gram) vaginal cream Apply pea-sized amount to perineum and 1 applicator vaginally Fri, Fri, Fri for atrophic vaginitis. - acetaminophen (TYLENOL EXTRA STRENGTH) 500 mg tablet Take 2 tablets by mouth two times a day as needed for pain. - TURMERIC ORAL Take by mouth. - CAPSICUM, CAYENNE, ORAL Take by mouth. - ascorbic acid/bioflavonoids (JENNIE C ORAL) Take by mouth. - FLAXSEED OIL ORAL Take by mouth. - GARLIC ORAL Take by mouth. - propylene glycol/peg 400 (SYSTANE ULTRA OPHTHALMIC) Use in eyes. - Zinc 50 mg tab Take by mouth once daily. - cranberry fruit extract (CRANBERRY ORAL) Take 650 mg by mouth once daily. - LACTOBACILLUS ACIDOPHILUS (PROBIOTIC ACIDOPHILUS ORAL) Take by mouth. - cholecalciferol (VITAMIN D3) 5,000 unit tab Take 5,000 Units by mouth once daily. - multivitamin ORAL tablet Take 1 tablet by mouth once daily. 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 07/06/2018 Collagenous colitis [K52.831] 12/21/2018 IBS (irritable bowel syndrome) [K58.9] 12/21/2018 Hiatal hernia [K44.9] 09/11/2020 Fall from standing [W19.XXXA] 06/05/2021 Rotator cuff tear arthropathy, left [M75.102, M*10/29/2021 Paroxysmal atrial fibrillation (HCC) [I48.0] 04/11/2022 Primary hypertension [I10] 12/30/2022 Acute pain of right shoulder [M25.511] 04/16/2023 Severe pain of left shoulder [M25.512] 04/16/2023 Cervicalgia [M54.2] 04/16/2023 Encounter Status:Closed by ASAD BUTLER on 09/17/24 Normal [facility] Telephone (HCSIND) BEHZAD HAY ([id number]) 1940 F Date Time Provider Department 09/17/24 TASHA DEUTSCH During your visit today, we recorded the following information about you: Elisha Thompson LPN 09/17/2024 12:28 PM Signed Tasha Deutsch APRN.NICO Please advise if you are agreeable to signing and following for HHC services? Our Clinicians will be sending the Plan of Care to you for review and approval. They will reach out for any appropriate orders required to provide home care services for the patient. We are not able to initiate HHC services without a following provider. Home care clinicians may also obtain orders from [place] [facility] Providers Thank you and we would be happy to answer any questions. Elisha Thompson LPN 09/17/2024 12:28 PM Tasha Deutsch APRN.CNP 09/17/2024 12:55 PM Signed Yes. I will follow Allergies As of Date: 09/17/2024 Noted Allergy Reaction ADHESIVE TAPE (ROSINS) 08/27/2011 2 - Rash BACTRIM (SULFAMETHOXAZOLE-TRIMETH*0 09/25/2018 2 - Rash MACROBID (NITROFURANTOIN MONOHYD/*09/25/2018 2 - Rash AWCNXGA-UOX-JNU REDUCTASE INHIBIT*10/06/2014 5 - Intolerance Date Reviewed: 04/26/2024 Reviewed by: Tasha Deutsch APRN.CNP - Fully Assessed Reason for Visit: Home Care [4073] Cmt: TO FOLLOW Prescriptions as of 09/17/2024 - apixaban (ELIQUIS) 2.5 mg tab(s) Take 1 tablet by mouth two times a day. - metoprolol tartrate, short acting, (LOPRESSOR) 25 mg tablet Take 1 tablet by mouth two times a day. - atorvastatin (LIPITOR) 40 mg tablet Take 1 tablet by mouth once daily. - lisinopril (ZESTRIL) 30 mg tablet Take 1 tablet by mouth once daily. - cyanocobalamin, vitamin B-12, 500 mcg chew Take 1 tablet by mouth once daily. - solifenacin (VESICARE) 5 mg tablet Take 1 tablet by mouth once daily. - estradiol (ESTRACE) 0.01 % (0.1 mg/gram) vaginal cream Apply pea-sized amount to perineum and 1 applicator vaginally Mon, Wed, Fri for atrophic vaginitis. - acetaminophen (TYLENOL EXTRA STRENGTH) 500 mg tablet Take 2 tablets by mouth two times a day as needed for pain. - TURMERIC ORAL Take by mouth. - CAPSICUM, CAYENNE, ORAL Take by mouth. - ascorbic acid/bioflavonoids (JENNIE C ORAL) Take by mouth. - FLAXSEED OIL ORAL Take by mouth. - GARLIC ORAL Take by mouth. - propylene glycol/peg 400 (SYSTANE ULTRA OPHTHALMIC) Use in eyes. - Zinc 50 mg tab Take by mouth once daily. - cranberry fruit extract (CRANBERRY ORAL) Take 650 mg by mouth once daily. - LACTOBACILLUS ACIDOPHILUS (PROBIOTIC ACIDOPHILUS ORAL) Take by mouth. - cholecalciferol (VITAMIN D3) 5,000 unit tab Take 5,000 Units by mouth once daily. - multivitamin ORAL tablet Take 1 tablet by mouth once daily. 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] 07/28/2017 07/06/2018 Collagenous colitis [K52.831] 12/21/2018 IBS (irritable bowel syndrome) [K58.9] 12/21/2018 Hiatal hernia [K44.9] 09/11/2020 Fall from standing [W19.XXXA] 06/05/2021 Rotator cuff tear arthropathy, left [M75.102, M*10/29/2021 Paroxysmal atrial fibrillation (HCC) [I48.0] 04/11/2022 Primary hypertension [I10] 12/30/2022 Acute pain of right shoulder [M25.511] 04/16/2023 Severe pain of left shoulder [M25.512] 04/16/2023 Cervicalgia [M54.2] 04/16/2023 Encounter Status:Closed by ELISHA THOMPSON on 09/17/24 Normal [facility] Carbon dioxide, total [Moles /volume] in Central venous bloodOrdered By: Behzad Dorado on 09-17-2024 CO2 [Moles/Vol] 25.4 mmol/L 21.0-32.0 [facility] Chloride assayOrdered By: Amandeep Dorado on 09-17-2024 Chloride [Moles/Vol] 105 mmol/L 98-108 [facility] Discharge Instructionon Discharge Instruction Normal [facility] Erythrocyte distribution wid th ratioOrdered By: Behzad Dorado on 09-17-2024 Erythrocyte distribution width (RBC) [Ratio] 12.4 % 11.6-14.6 [facility] Erythrocyte distribution wid th standard deviationOrdered By: Behzad Dorado on 09-17-2024 Erythrocyte distribution width (RBC) [Ratio] 43.9 fl 35.1-43.9 [facility] Glomerular filtration rate ( GFR) estimation/1.73 sq m using serum, plasma, or whole bOrdered By: Behzad Dorado on 09-17-2024 GFR/1.73 sq M.predicted among non-blacks MDRD (S/P/Bld) [Vol rate/Area] 56 mL/min/{1.73_m2} Low >60 [facility] Comment on above: mL/min/1.73m2 CKD-EP I Creatinine Equation (2020) Hematocrit Auto (Bld) [Volum e fraction]Ordered By: Behzad Dorado on 09-17-2024 Hematocrit (Bld) [Volume fraction] 34.5 % Low 37-47 [facility] Hemoglobin measurementOrdere d By: Behzad Dorado on 09-17-2024 Hemoglobin (Bld) [Mass/Vol] 11.1 g/dL Low 12.0-15.0 [facility] MCV (mean corpuscular volume ) determinationOrdered By: Behzad Dorado on 09-17-2024 MCV (RBC) [Entitic vol] 96.4 fL 81-99 [facility] Mean corpuscular hemoglobin (MCH) determinationOrdered By: Behzad Dorado on 09-17-2024 MCH (RBC) [Entitic mass] 31.0 pg 27.0-32.0 [facility] Mean corpuscular hemoglobin concentration (MCHC) determinationOrdered By: Behzad Dorado on 09-17-2024 MCHC (RBC) [Mass/Vol] 32.2 g/dL 32-36 [facility] Mean platelet volume determi nationOrdered By: Behzad Dorado on 09-17-2024 Platelet mean volume (Bld) [Entitic vol] 9.2 fL 6.2-12.0 [facility] Platelet countOrdered By: Amandeep Dorado on 09-17-2024 Platelets (Bld) [#/Vol] 249 10*3/uL 150-450 [facility] Potassium measurement (mass/ volume)Ordered By: Behzad Dorado on 09-17-2024 Potassium (Unsp spec) [Mass/Vol] 4.3 mmol/L 3.3-5.1 [facility] RBC Auto (Bld) [#/Vol]Ordere d By: Behzad Dorado on 09-17-2024 RBC (Bld) [#/Vol] 3.58 10*6/uL Low 4.2-5.4 [facility] Serum creatinine measurement (mass/volume)Ordered By: Behzad Dorado on 09-17-2024 Creatinine [Mass/Vol] 0.98 mg/dL 0.70-1.20 [facility] Serum glucose measurement (m ass/volume)Ordered By: Behzad Dorado on 09-17-2024 Glucose [Mass/Vol] 101 mg/dL High 70-99 [facility] Serum or plasma calcium camilo urement (mass/volume)Ordered By: Behzad Dorado on 09-17-2024 Calcium [Mass/Vol] 9.3 mg/dL 7.6-11.0 [facility] Serum or plasma urea nitroge n measurement (mass/volume)Ordered By: Behzad Dorado on 09-17-2024 Urea nitrogen [Mass/Vol] 19 mg/dL 4-19 [facility] Sodium levelOrdered By: Behzad Dorado on 09-17-2024 Sodium [Moles/Vol] 140 mmol/L 133-145 [facility] Stool Lactoferrin/WBCon 06-5 WBCST Normal Reference Ran ge = Negative Fecal WBC Lactoferrin A Positive: Fecal WBC Lactoferrin present A Normal [facility] Comment on above: Performed By: #### M 100.0605 ####[facility] [address] [place], [address] Stool lactoferrin detection by immunoassayOrdered By: Behzad Dorado on 09-17-2024 Lactoferrin IA Ql (Stl) [facility] White blood cell (WBC) count Ordered By: Behzad Dorado on 09-17-2024 WBC (Bld) [#/Vol] 5.6 10*3/uL 4.4-11.0 [facility] Urine Cultureon 09-15-2024 URC Normal [facility] Comment on above: Performed By: #### M 100.2200 ####[facility] [address], [address] Basic Metabolic Profile (BMP )on 09-13-2024 BUN/CRE 20.6 RATIO High 10-20 [facility] Comment on above: Performed By: #### L 500.2500, L100.0600 ####[facility] [address] [place], [address] Calcium [Mass/Vol] 9.4 mg/dL Normal 7.6-11.0 [facility] Comment on above: Performed By: #### L 500.2500, L100.0600 ####[facility] [address] [place], [address] Chloride [Moles/Vol] 105 mmol/L Normal 98-108 [facility] Comment on above: Performed By: #### L 500.2500, L100.0600 ####[facility] [address] [place], [address] CO2 [Moles/Vol] 26.2 mmol/L Normal 21.0-32.0 [facility] Comment on above: Performed By: #### L 500.2500, L100.0600 ####[facility] [address] [place], [address] Creatinine [Mass/Vol] 1.09 mg/dL Normal 0.70-1.20 [facility] Comment on above: Performed By: #### L 500.2500, L100.0600 ####[facility] [address] [place], [address] ECRCL 29.30 ml/min Low 50-250 [facility] Comment on above: Performed By: #### L 500.2500, L100.0600 ####[facility] [address] [place], [address] GAP 9 Normal 5-15 [facility] Comment on above: Performed By: #### L 500.2500, L100.0600 ####[facility] [address] [place], [address] GFR/1.73 sq M.predicted among non-blacks MDRD (S/P/Bld) [Vol rate/Area] 49 mL/min/{1.73_m2} Low >60 [facility] Comment on above: Result Comment: mL/m in/1.73m2 CKD-EPI Creatinine Equation (2020) Performed By: #### L 500.2500, L100.0600 ####[facility] [address] [place], [address] Glucose [Mass/Vol] 98 mg/dL Normal 70-99 [facility] Comment on above: Performed By: #### L 500.2500, L100.0600 ####[facility] [address] [place], [address] Potassium [Moles/Vol] 4.7 mmol/L Normal 3.3-5.1 [facility] Comment on above: Performed By: #### L 500.2500, L100.0600 ####[facility] [address] [place], [address] Sodium [Moles/Vol] 140 mmol/L Normal 133-145 [facility] Comment on above: Performed By: #### L 500.2500, L100.0600 ####[facility] [address] [place], [address] Urea nitrogen [Mass/Vol] 23 mg/dL High 4-19 [facility] Comment on above: Performed By: #### L 500.2500, L100.0600 ####[facility] [address] [place], [address] Bilirubin Test strip Ql (U)O rdered By: Behzad Dorado on 09-13-2024 Bilirubin Ql (U) Negative Negative [facility] HH, Hemoglobin AND Hematocri ton 09-13-2024 Hematocrit (Bld) [Volume fraction] 35.8 % Low 37-47 [facility] Comment on above: Performed By: #### L 500.2500, L100.0600 ####[facility] [address] [place], [address] Hemoglobin (Bld) [Mass/Vol] 11.4 g/dL Low 12.0-15.0 [facility] Comment on above: Performed By: #### L 500.2500, L100.0600 ####[facility] [address] [place], [address] Ketones Test strip Ql (U)Ord ered By: Behzad Dorado on 09-13-2024 Ketones Ql (U) Negative Negative [facility] Microscopic analysis of urin e for red blood cells (RBC)Ordered By: Behzad Dorado on 09-13-2024 Microscopic analysis of urine for red blood cells (RBC) 0-5 SEEN /hpf 0-5 [facility] Mucus LM Ql (Urine sed)Order ed By: Behzad Dorado on 09-13-2024 Mucus Ql (Urine sed) 0 SEEN /hpf [facility] Nitrite Test strip Ql (U)Ord ered By: Behzad Dorado on 09-13-2024 Nitrite Ql (U) Positive High Negative [facility] Protein Test strip Ql (U)Ord ered By: Behzad Dorado on 09-13-2024 Protein Ql (U) 15 mg/dl High Negative [facility] Squamous epithelial cells de tection in urine sediment by light microscopyOrdered By: Behzad Dorado on 09-13-2024 Epithelial cells.squamous LM Ql (Urine sed) 0 SEEN /hpf 5-10 [facility] Urinalysis, Completeon 09-13 BACTERIA 2+ /hpf Normal None Seen [facility] Comment on above: Order Comment: JAMESON TER SPECIMEN Performed By: #### L 400.0001 ####[facility] [address] [place], [address] RBC 0-5 SEEN Normal 0-5 [facility] Comment on above: Order Comment: JAMESON TER SPECIMEN Performed By: #### L 400.0001 ####[facility] [address] [place], [address] WBC 25-50 SEEN Normal 0-5 [facility] Comment on above: Order Comment: JAMESON TER SPECIMEN Performed By: #### L 400.0001 ####[facility] [address] [place], [address] EPI,SQUAMOUS 0 SEEN Normal 5-10 [facility] Comment on above: Order Comment: JAMESON TER SPECIMEN Performed By: #### L 400.0001 ####[facility] [address] [place], [address] Mucus Ql (Urine sed) 0 SEEN Normal [facility] Comment on above: Order Comment: JAMESON TER SPECIMEN Performed By: #### L 400.0001 ####[facility] [address] [place], [address] Urine clarityOrdered By: Maday Dorado on 09-13-2024 Clarity (U) Sl. Cloudy Clear [facility] Urine color determinationOrd ered By: Behzad Dorado on 09-13-2024 Color (U) Yellow Yellow [facility] Urine cultureOrdered By: Maday Dorado on 09-13-2024 Bacteria identified Cx Nom (U) Escherichia coli Abnormal [facility] Urine glucose detectionOrder ed By: Behzad Garciaalexus on 09-13-2024 Glucose Ql (U) Normal mg/dl Normal [facility] Urine leukocyte esterase det ection by dipstickOrdered By: Behzad Estrada on 09-13-2024 Leukocyte esterase Test strip Ql (U) 500 /ul High Negative [facility] Urine pHOrdered By: Behzad Radha lieberman on 09-13-2024 pH (U) 6.0 [pH] 5.0 - 8.0 [facility] Urine sediment bacteria coun t by microscopy (number/high power field)Ordered By: Behzad Estrada on 09-13-2024 Bacteria LM.HPF (Urine sed) [#/Area] 2 /[HPF] None Seen [facility] Urine specific gravity measu rementOrdered By: Behzad Estrada on 09-13-2024 Specific gravity (U) [Rel density] 1.015 1.002-1.03 0 [facility] Urine urobilinogen measureme ntOrdered By: Behzad Dorado on 09-13-2024 Urobilinogen Ql (U) Normal mg/dl Normal [facility] White blood cell countOrdere d By: Behzad Estrada on 09-13-2024 White blood cell count 25-50 SEEN /hpf 0-5 [facility] Basic Metabolic Profile (BMP )on 09-06-2024 BUN/CRE 20.0 RATIO Normal 10-20 [facility] Comment on above: Performed By: #### L 500.2500, L1.06 ####[facility] [address] [facility] [place], [address] Calcium [Mass/Vol] 9.1 mg/dL Normal 7.6-11.0 [facility] Comment on above: Performed By: #### L 500.2500, L100.0600 ####[facility] [address] [place], [address] Chloride [Moles/Vol] 104 mmol/L Normal 98-108 [facility] Comment on above: Performed By: #### L 500.2500, L100.0600 ####[facility] [address] [place], [address] CO2 [Moles/Vol] 27.0 mmol/L Normal 21.0-32.0 [facility] Comment on above: Performed By: #### L 500.2500, L100.0600 ####[facility] [address] [place], [address] Creatinine [Mass/Vol] 0.89 mg/dL Normal 0.70-1.20 [facility] Comment on above: Performed By: #### L 500.2500, L100.0600 ####[facility] [address] [place], [address] ECRCL 35.89 ml/min Low 50-250 [facility] Comment on above: Performed By: #### L 500.2500, L100.0600 ####[facility] [address] [place], [address] GAP 9 Normal 5-15 [facility] Comment on above: Performed By: #### L 500.2500, L100.0600 ####[facility] [address] [place], [address] GFR/1.73 sq M.predicted among non-blacks MDRD (S/P/Bld) [Vol rate/Area] 63 mL/min/{1.73_m2} Normal >60 [facility] Comment on above: Result Comment: mL/m in/1.73m2 CKD-EPI Creatinine Equation (2020) Performed By: #### L 500.2500, L100.0600 ####[facility] [address] [place], [address] Glucose [Mass/Vol] 95 mg/dL Normal 70-99 [facility] Comment on above: Performed By: #### L 500.2500, L100.0600 ####[facility] [address] [place], [address] Potassium [Moles/Vol] 4.3 mmol/L Normal 3.3-5.1 [facility] Comment on above: Performed By: #### L 500.2500, L100.0600 ####[facility] [address] [place], [address] Sodium [Moles/Vol] 141 mmol/L Normal 133-145 [facility] Comment on above: Performed By: #### L 500.2500, L100.0600 ####[facility] [address] [place], [address] Urea nitrogen [Mass/Vol] 18 mg/dL Normal 4-19 [facility] Comment on above: Performed By: #### L 500.2500, L100.0600 ####[facility] [address] [place], [address] HH, Hemoglobin AND Hematocri ton 09-06-2024 Hematocrit (Bld) [Volume fraction] 34.9 % Low 37-47 [facility] Comment on above: Performed By: #### L 500.2500, L100.0600 ####[facility] [address] [place], [address] Hemoglobin (Bld) [Mass/Vol] 11.3 g/dL Low 12.0-15.0 [facility] Comment on above: Performed By: #### L 500.2500, L100.0600 ####[facility] [address] [place], [address] Basic Metabolic Profile (BMP )on 08-30-2024 BUN/CRE 20.3 RATIO High 10-20 [facility] Comment on above: Performed By: #### L 100.0500, L500.2500 ####[facility] [address] [place], [address] Calcium [Mass/Vol] 9.6 mg/dL Normal 7.6-11.0 [facility] Comment on above: Performed By: #### L 100.0500, L500.2500 ####[facility] [address] [place], [address] Chloride [Moles/Vol] 106 mmol/L Normal 98-108 [facility] Comment on above: Performed By: #### L 100.0500, L500.2500 ####[facility] [address] [place], [address] CO2 [Moles/Vol] 25.3 mmol/L Normal 21.0-32.0 [facility] Comment on above: Performed By: #### L 100.0500, L500.2500 ####[facility] [address] [place], [address] Creatinine [Mass/Vol] 0.86 mg/dL Normal 0.70-1.20 [facility] Comment on above: Performed By: #### L 100.0500, L500.2500 ####[facility] [address] [place], [address] ECRCL 37.14 ml/min Low 50-250 [facility] Comment on above: Performed By: #### L 100.0500, L500.2500 ####[facility] [address] [place], [address] GAP 8 Normal 5-15 [facility] Comment on above: Performed By: #### L 100.0500, L500.2500 ####[facility] [address] [place], [address] GFR/1.73 sq M.predicted among non-blacks MDRD (S/P/Bld) [Vol rate/Area] 66 mL/min/{1.73_m2} Normal >60 [facility] Comment on above: Result Comment: mL/m in/1.73m2 CKD-EPI Creatinine Equation (2020) Performed By: #### L 100.0500, L500.2500 ####[facility] [address] [place], [address] Glucose [Mass/Vol] 107 mg/dL High 70-99 [facility] Comment on above: Performed By: #### L 100.0500, L500.2500 ####[facility] [address] [place], [address] Potassium [Moles/Vol] 4.2 mmol/L Normal 3.3-5.1 [facility] Comment on above: Performed By: #### L 100.0500, L500.2500 ####[facility] [address] [place], [address] Sodium [Moles/Vol] 139 mmol/L Normal 133-145 [facility] Comment on above: Performed By: #### L 100.0500, L500.2500 ####[facility] [address] [place], [address] Urea nitrogen [Mass/Vol] 17 mg/dL Normal 4-19 [facility] Comment on above: Performed By: #### L 100.0500, L500.2500 ####[facility] [address] [place], [address] CBC-Complete Blood Cnt No Di ffon 08-30-2024 Erythrocyte distribution width (RBC) [Ratio] 12.5 % Normal 11.6-14.6 [facility] Comment on above: Performed By: #### L 100.0500, L500.2500 ####[facility] [address] [place], [address] Hematocrit (Bld) [Volume fraction] 39.6 % Normal 37-47 [facility] Comment on above: Performed By: #### L 100.0500, L500.2500 ####[facility] [address] [place], [address] Hemoglobin (Bld) [Mass/Vol] 12.7 g/dL Normal 12.0-15.0 [facility] Comment on above: Performed By: #### L 100.0500, L500.2500 ####[facility] [address] [place], [address] MCH (RBC) [Entitic mass] 31.4 pg Normal 27.0-32.0 [facility] Comment on above: Performed By: #### L 100.0500, L500.2500 ####[facility] [address] [place], [address] MCHC (RBC) [Mass/Vol] 32.1 g/dL Normal 32-36 [facility] Comment on above: Performed By: #### L 100.0500, L500.2500 ####[facility] [address] [place], [address] MCV (RBC) [Entitic vol] 97.8 fL Normal 81-99 [facility] Comment on above: Performed By: #### L 100.0500, L500.2500 ####[facility] [address] [place], [address] Platelet mean volume (Bld) [Entitic vol] 8.7 fL Normal 6.2-12.0 [facility] Comment on above: Performed By: #### L 100.0500, L500.2500 ####[facility] [address] [place], [address] Platelets (Bld) [#/Vol] 364 10*3/uL Normal 150-450 [facility] Comment on above: Performed By: #### L 100.0500, L500.2500 ####[facility] [address] [place], [address] RBC (Bld) [#/Vol] 4.05 10*6/uL Low 4.2-5.4 [facility] Comment on above: Performed By: #### L 100.0500, L500.2500 ####[facility] [address] [place], [address] RDW SD 45.1 fl High 35.1-43.9 [facility] Comment on above: Performed By: #### L 100.0500, L500.2500 ####[facility] [address] [place], [address] WBC (Bld) [#/Vol] 6.6 10*3/uL Normal 4.4-11.0 [facility] Comment on above: Performed By: #### L 100.0500, L500.2500 ####[facility] [address] [place], [address] [facility] BHARTIBEHZAD Lugo ([id number]) 1940 F Date Time Provider Department 08/30/24 TASHA DEUTSCH [facility] During your visit today, we recorded the following information about you: Tasha Deutsch APRN.[facility] 08/30/2024 12:45 PM Signed Patient was admitted August 22, 2024 and discharged on August 23, 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 Patient has a past history of chronic renal failure stage IV but recent labs show GFR of 74?, History of A-fib, osteoarthritis, hypertension who presents to the emergency room [facility] August 16 with complaints of confusion. In the emergency room her NIH score was 0. She was awake and alert answering questions and following commands. Blood pressure 164/104. Noncontrast brain CT showed no acute intracranial abnormalities but did show chronic age-related microvascular ischemia. Chest x-ray no acute findings. EKG showed A-fib with a rate of 100. Workup for infection was negative. She was discharged home and told to follow-up with her primary care provider. She returned to the emergency room August 18 with confusion. She also had right arm and leg weakness. Some speech difficulty noted. Blood pressure 187/89. Lab work consistent with urinary tract infection. Blood cultures and urine culture were sent. CTA of the head and neck showed suspicious for acute infarct in the high left parietal lobe and hypodensity in the left caudate nucleus possible secondary to remote lacunar versus acute ischemic stroke. 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 MRI showed left frontal parietal lobe compatible with MCA distribution infarct. EKG showed normal sinus rhythm. Admitted to the hospital. Teleneurology consult placed and recommended aspirin and Plavix for 3 weeks and then discontinue Plavix and continue aspirin alone. She had A-fib when in the emergency room August 16. No documentation of prior A-fib. Teleneurology recommended a statin and permissive hypertension for 5 to 7 days. Blood pressure 130/70. Transferred to the acute inpatient rehab at [facility] August 22. She was to have physical therapy 3 hours daily. WBC 6, hemoglobin 10.9, platelets normal. Sodium 141, potassium 4.1, BUN 23, creatinine 0.78. GFR 74. Hemoglobin A1c 5.7. Calcium, phosphorus, magnesium normal. Liver function normal. Urine culture shows E. coli. Blood pressure 125/63 to 162/68. Allergies As of Date: 08/30/2024 Noted Allergy Reaction ADHESIVE TAPE (ROSINS) 08/27/2011 2 - Rash BACTRIM (SULFAMETHOXAZOLE-TRIMETH*0 09/25/2018 2 - Rash MACROBID (NITROFURANTOIN MONOHYD/*09/25/2018 2 - Rash BIGRXVD-QHU-SKZ REDUCTASE INHIBIT*10/06/2014 5 - Intolerance Date Reviewed: 04/26/2024 Reviewed by: Tasha Deutsch APRN.[employer]IATION E[employer]RONIC WARFARE OPERATOR - Fully Assessed Prescriptions as of 08/30/2024 - apixaban (ELIQUIS) 2.5 mg tab(s) Take 1 tablet by mouth two times a day. - metoprolol tartrate, short acting, (LOPRESSOR) 25 mg tablet Take 1 tablet by mouth two times a day. - atorvastatin (LIPITOR) 40 mg tablet Take 1 tablet by mouth once daily. - lisinopril (ZESTRIL) 30 mg tablet Take 1 tablet by mouth once daily. - cyanocobalamin, vitamin B-12, 500 mcg chew Take 1 tablet by mouth once daily. - solifenacin (VESICARE) 5 mg tablet Take 1 tablet by mouth once daily. - estradiol (ESTRACE) 0.01 % (0.1 mg/gram) vaginal cream Apply pea-sized amount to perineum and 1 applicator vaginally Fri, Fri, Fri for atrophic vaginitis. - acetaminophen (TYLENOL EXTRA STRENGTH) 500 mg tablet Take 2 tablets by mouth two times a day as needed for pain. - TURMERIC ORAL Take by mouth. - CAPSICUM, CAYENNE, ORAL Take by mouth. - ascorbic acid/bioflavonoids (JENNIE C ORAL) Take by mouth. - FLAXSEED OIL ORAL Take by mouth. - GARLIC ORAL Take by mouth. - propylene glycol/peg 400 (SYSTANE ULTRA OPHTHALMIC) Use in eyes. - Zinc 50 mg tab Take by mouth once daily. - cranberry fruit extract (CRANBERRY ORAL) Take 650 mg by mouth once daily. - LACTOBACILLUS ACIDOPHILUS (PROBIOTIC ACIDOPHILUS ORAL) Take by mouth. - cholecalciferol (VITAMIN D3) 5,000 unit tab Take 5,000 Units by mouth once daily. - multivitamin ORAL tablet Take 1 tablet by mouth once daily. Problem List As Of Date 08/30/2024 Noted Resolved Trigger ring finger of right hand [M65.341] 08/15/2016 Injury of extensor tendon of hand [S66.909A] 08/15/2016 Spontaneous rupture of extensor tendon of left *09/23/2016 Acquired trigger finger [M65.30] 12/10/2016 Chronic renal insufficiency, stage 3 (moderate)*02/27/2017 Vitamin D deficiency [E55.9] 02/27/2017 DDD (degenerative disc disease), cervical [M50.*02/27/2017 Primary osteoarthritis of right hip [M16.11] 02/27/2017 Iatrogenic [place]'s disease (HCC) [NMM1264] (more content not included)... Normal [facility] Basic Metabolic Profile (BMP )on 08-27-2024 BUN/CRE 22.9 RATIO High 10- [facility] Comment on above: Performed By: #### L 500.2500, L100.0600 ####[facility] [address] [place], [address] Calcium [Mass/Vol] 9.5 mg/dL Normal 7.6-11.0 [facility] Comment on above: Performed By: #### L 500.2500, L100.0600 ####[facility] [address] [place], [address] Chloride [Moles/Vol] 107 mmol/L Normal 98-108 [facility] Comment on above: Performed By: #### L 500.2500, L100.0600 ####[facility] [address] [place], [address] CO2 [Moles/Vol] 22.6 mmol/L Normal 21.0-32.0 [facility] Comment on above: Performed By: #### L 500.2500, L100.0600 ####[facility] [address] [place], [address] Creatinine [Mass/Vol] 0.90 mg/dL Normal 0.70-1.20 [facility] Comment on above: Performed By: #### L 500.2500, L100.0600 ####[facility] [address] [place], [address] ECRCL 38.86 ml/min Low 50-250 [facility] Comment on above: Performed By: #### L 500.2500, L100.0600 ####[facility] [address] [place], [address] GAP 12 Normal 5-15 [facility] Comment on above: Performed By: #### L 500.2500, L100.0600 ####[facility] [address] [place], [address] GFR/1.73 sq M.predicted among non-blacks MDRD (S/P/Bld) [Vol rate/Area] 63 mL/min/{1.73_m2} Normal >60 [facility] Comment on above: Result Comment: mL/m in/1.73m2 CKD-EPI Creatinine Equation (2020) Performed By: #### L 500.2500, L100.0600 ####[facility] [address] [place], [address] Glucose [Mass/Vol] 109 mg/dL High 70-99 [facility] Comment on above: Performed By: #### L 500.2500, L100.0600 ####[facility] [address] [place], [address] Potassium [Moles/Vol] 4.4 mmol/L Normal 3.3-5.1 [facility] Comment on above: Performed By: #### L 500.2500, L100.0600 ####[facility] [address] [place], [address] Sodium [Moles/Vol] 141 mmol/L Normal 133-145 [facility] Comment on above: Performed By: #### L 500.2500, L100.0600 ####[facility] [address] [place], [address] Urea nitrogen [Mass/Vol] 21 mg/dL High 4-19 [facility] Comment on above: Performed By: #### L 500.2500, L100.0600 ####[facility] [address] [place], [address] HH, Hemoglobin AND Hematocri ton 08-27-2024 Hematocrit (Bld) [Volume fraction] 40.8 % Normal 37-47 [facility] Comment on above: Performed By: #### L 500.2500, L100.0600 ####[facility] [address] [place], [address] Hemoglobin (Bld) [Mass/Vol] 13.3 g/dL Normal 12.0-15.0 [facility] Comment on above: Performed By: #### L 500.2500, L100.0600 ####[facility] [address] [place], [address] Stool Occult Blood iFOBon STOB Positive Normal [facility] Comment on above: Performed By: #### M 100.7900 ####[facility] [address] [place], [address] Stool gastrointestinal hemog lobin detection by immunologic methodOrdered By: Behzad Garciaalexus on 08-27-2024 Lower GI hemoglobin IA Ql (Stl) Positive Abnormal [facility] Bilirubin, totalOrdered By: eBhzad Garciaalexus on 08-23-2024 Bilirubin [Mass/Vol] 0.23 mg/dL 0.00-1.30 [facility] CBC-Complete Blood Cnt No Di ffon 08-23-2024 Erythrocyte distribution width (RBC) [Ratio] 12.8 % Normal 11.6-14.6 [facility] Comment on above: Performed By: #### L 100.0500, L501.5200, L501.2300, L500.4050 ####[facility] [address] [place], [address] Hematocrit (Bld) [Volume fraction] 34.9 % Low 37-47 [facility] Comment on above: Performed By: #### L 100.0500, L501.5200, L501.2300, L500.4050 ####[facility] [address] [place], [address] Hemoglobin (Bld) [Mass/Vol] 10.9 g/dL Low 12.0-15.0 [facility] Comment on above: Performed By: #### L 100.0500, L501.5200, L501.2300, L500.4050 ####[facility] [address] [place], [address] MCH (RBC) [Entitic mass] 30.9 pg Normal 27.0-32.0 [facility] Comment on above: Performed By: #### L 100.0500, L501.5200, L501.2300, L500.4050 ####[facility] [address] [place], [address] MCHC (RBC) [Mass/Vol] 31.2 g/dL Low 32-36 [facility] Comment on above: Performed By: #### L 100.0500, L501.5200, L501.2300, L500.4050 ####[facility] [address] [place], [address] MCV (RBC) [Entitic vol] 98.9 fL Normal 81-99 [facility] Comment on above: Performed By: #### L 100.0500, L501.5200, L501.2300, L500.4050 ####[facility] [address] [place], [address] Platelet mean volume (Bld) [Entitic vol] 9.5 fL Normal 6.2-12.0 [facility] Comment on above: Performed By: #### L 100.0500, L501.5200, L501.2300, L500.4050 ####[facility] [address] [place], [address] Platelets (Bld) [#/Vol] 246 10*3/uL Normal 150-450 [facility] Comment on above: Performed By: #### L 100.0500, L501.5200, L501.2300, L500.4050 ####[facility] [address] [place], [address] RBC (Bld) [#/Vol] 3.53 10*6/uL Low 4.2-5.4 [facility] Comment on above: Performed By: #### L 100.0500, L501.5200, L501.2300, L500.4050 ####[facility] [address] [place], [address] RDW SD 46.1 fl High 35.1-43.9 [facility] Comment on above: Performed By: #### L 100.0500, L501.5200, L501.2300, L500.4050 ####[facility] [address] [place], [address] WBC (Bld) [#/Vol] 6.0 10*3/uL Normal 4.4-11.0 [facility] Comment on above: Performed By: #### L 100.0500, L501.5200, L501.2300, L500.4050 ####[facility] [address] [place], [address] [facility]-23-2024 [facility] TYLERBEHZAD JONES ([id number]) 1940 F Date Time Provider Department 08/23/24 TASHA DEUTSCH [facility] During your visit today, we recorded the following information about you: Tasha Deutsch, EAN.[facility] 08/23/2024 12:15 PM Signed Patient was discharged from [facility] on August 22, 2024 for acute ischemic stroke/TIA Patient presented with dysarthria, anarthria, lack of coordination, Patient's family being concerned she needs an MRI to rule out a stroke. Seen in the emergency room 2 days ago and had an episode of confusion could not figure out how to get her garage door open by pushing the button. Workup was negative in the emergency room NIH was 0 at the time. Discharged home after discussion with family. Another family member visiting from out of town noted that she had continued episodes of confusion was having difficulty controlling the right side of her arm and leg and some speech change. The day of presentation she was unable to feed herself using a spoon. Temperature 98, heart rate 81, respirations 15, blood pressure 187/89, pulse oximeter 100. CBC was unremarkable other than a mild left shift with a neutrophilia of 79.2%. Coags normal. Chemistry overtly normal other than a BUN of 27. Creatinine was baseline 1.0, glucose 72, hemoglobin A1c 5.7%. Lactic acid less than 1. Liver functions unremarkable. Urine consistent with an infection had nitrates and leukocytes white cells and 3+ bacteria. Tox screen negative. CT of the brain showed no acute cranial abnormalities and chronic age-related microvascular changes. Chest x-ray showed no acute findings. Concern for stroke as well as UTI. Started on ceftriaxone and urine culture sent. She did grow out E. coli was treated for 5 days of ceftriaxone and transition to Keflex. She has 1 more day of antibiotic left. Echocardiogram showed ejection fraction of 65% with indeterminate diastolic function, mild left atrial enlargement, aortic valve sclerosis without stenosis, mildly calcified aortic root. MRI did show an acute left frontal parietal lobe infarct compatible with MCA distribution and local mass affect without midline shift as well as chronic microvascular ischemia. She was not anticoagulated and further information was given to her youngest daughter revealed she had there was discussion of anticoagulation that the oldest daughter did not want her to go onto it due to effects of bleeding. It was deferred past that. She did flip into A-fib. Rates in the low 100s. Started on metoprolol initially 50 mg twice a day and will reduce to 25 mg twice a day when her heart rate dipped into the 50s. She did return to sinus rhythm. She was started on apixaban 2.5 mg twice daily as recommended for age and weight. Risk for being on anticoagulated outweighed the risk of falls. DOAC started 5 days after her onset of stroke as recommended by neurology. They discontinued aspirin and Plavix. She was placed on a atorvastatin 40 mg daily. Patient was sent to rehab. Allergies As of Date: 08/23/2024 Noted Allergy Reaction ADHESIVE TAPE (ROSINS) 08/27/2011 2 - Rash BACTRIM (SULFAMETHOXAZOLE-TRIMETH*0 09/25/2018 2 - Rash MACROBID (NITROFURANTOIN MONOHYD/*09/25/2018 2 - Rash JWBMFBE-TQY-CAS REDUCTASE INHIBIT*10/06/2014 5 - Intolerance Date Reviewed: 04/26/2024 Reviewed by: Tasha Deutsch APRN.AVIATION ELECTRONIC WARFARE OPERATOR - Fully Assessed Primary Visit Diagnosis:Paroxysmal atrial fibrillation (HCC) [I48.0] Other Visit Diagnosis:Cerebrovascular accident (CVA) due to occlusion of cerebral artery (HCC) [I63.50] Order(s):apixaban (ELIQUIS) 2.5 mg tab(s)Take 1 tablet by mouth two times a day.Disp: 60 tabletRfl: 11 metoprolol tartrate, short acting, (LOPRESSOR) 25 mg tabletTake 1 tablet by mouth two times a day.Disp: 180 tabletRfl: 3 atorvastatin (LIPITOR) 40 mg tabletTake 1 tablet by mouth once daily.Disp: 90 tabletRfl: 3 Prescriptions as of 08/23/2024 - apixaban (ELIQUIS) 2.5 mg tab(s) Take 1 tablet by mouth two times a day. - metoprolol tartrate, short acting, (LOPRESSOR) 25 mg tablet Take 1 tablet by mouth two times a day. - atorvastatin (LIPITOR) 40 mg tablet Take 1 tablet by mouth once daily. - lisinopril (ZESTRIL) 30 mg tablet Take 1 tablet by mouth once daily. - cyanocobalamin, vitamin B-12, 500 mcg chew Take 1 tablet by mouth once daily. - solifenacin (VESICARE) 5 mg tablet Take 1 tablet by mouth once daily. - estradiol (ESTRACE) 0.01 % (0.1 mg/gram) vaginal cream Apply pea-sized amount to perineum and 1 applicator vaginally Mon, Fri, Fri for atrophic vaginitis. - acetaminophen (TYLENOL EXTRA STRENGTH) 500 mg tablet Take 2 tablets by mouth two times a day as needed for pain. - TURMERIC ORAL Take by mouth. - CAPSICUM, CAYENNE, ORAL Take by mouth. - ascorbic acid/bioflavonoids (JENNIE C ORAL) Take by mouth. - FLAXS (more content not included)... Normal [facility] Metabolic Prof chayito 08-23-2024 Albumin [Mass/Vol] 3.4 g/dL Normal 3.4-4.8 [facility] Comment on above: Performed By: #### L 100.0500, L501.5200, L501.2300, L500.4050 ####[facility] [address] [place], [address] Albumin/Globulin [Mass ratio] 1.3 {ratio} Normal 0.9-2.4 [facility] Comment on above: Performed By: #### L 100.0500, L501.5200, L501.2300, L500.4050 ####[facility] [address] [place], [address] ALK PHOS 74 U/L Normal 35-104 [facility] Comment on above: Performed By: #### L 100.0500, L501.5200, L501.2300, L500.4050 ####[facility] [address] [place], [address] ALT [Catalytic activity/Vol] 18 U/L Normal <=34 [facility] Comment on above: Performed By: #### L 100.0500, L501.5200, L501.2300, L500.4050 ####[facility] [address] [place], [address] AST [Catalytic activity/Vol] 28 U/L Normal <=31 [facility] Comment on above: Performed By: #### L 100.0500, L501.5200, L501.2300, L500.4050 ####[facility] [address] [place], [address] Bilirubin [Mass/Vol] 0.23 mg/dL Normal 0.00-1.30 [facility] Comment on above: Performed By: #### L 100.0500, L501.5200, L501.2300, L500.4050 ####[facility] [address] [place], [address] BUN/CRE 29.6 RATIO High 10-20 [facility] Comment on above: Performed By: #### L 100.0500, L501.5200, L501.2300, L500.4050 ####[facility] [address] [place], [address] Calcium [Mass/Vol] 9.3 mg/dL Normal 7.6-11.0 [facility] Comment on above: Performed By: #### L 100.0500, L501.5200, L501.2300, L500.4050 ####[facility] [address] [place], [address] Chloride [Moles/Vol] 108 mmol/L Normal 98-108 [facility] Comment on above: Performed By: #### L 100.0500, L501.5200, L501.2300, L500.4050 ####[facility] [address] [place], [address] CO2 [Moles/Vol] 22.6 mmol/L Normal 21.0-32.0 [facility] Comment on above: Performed By: #### L 100.0500, L501.5200, L501.2300, L500.4050 ####[facility] [address] [place], [address] Creatinine [Mass/Vol] 0.78 mg/dL Normal 0.70-1.20 [facility] Comment on above: Performed By: #### L 100.0500, L501.5200, L501.2300, L500.4050 ####[facility] [address] [place], [address] ECRCL 39.92 ml/min Low 50-250 [facility] Comment on above: Performed By: #### L 100.0500, L501.5200, L501.2300, L500.4050 ####[facility] [address] [place], [address] GAP 10 Normal 5-15 [facility] Comment on above: Performed By: #### L 100.0500, L501.5200, L501.2300, L500.4050 ####[facility] [address] [place], [address] GFR/1.73 sq M.predicted among non-blacks MDRD (S/P/Bld) [Vol rate/Area] 74 mL/min/{1.73_m2} Normal >60 [facility] Comment on above: Result Comment: mL/m in/1.73m2 CKD-EPI Creatinine Equation (2020) Performed By: #### L 100.0500, L501.5200, L501.2300, L500.4050 ####[facility] [address] [place], [address] Globulin (S) [Mass/Vol] 2.6 g/dL Normal 2.2-4.2 [facility] Comment on above: Performed By: #### L 100.0500, L501.5200, L501.2300, L500.4050 ####[facility] [address] [place], [address] Glucose [Mass/Vol] 101 mg/dL High 70-99 [facility] Comment on above: Performed By: #### L 100.0500, L501.5200, L501.2300, L500.4050 ####[facility] [address] [place], [address] Potassium [Moles/Vol] 4.1 mmol/L Normal 3.3-5.1 [facility] Comment on above: Performed By: #### L 100.0500, L501.5200, L501.2300, L500.4050 ####[facility] [address] [place], [address] Sodium [Moles/Vol] 141 mmol/L Normal 133-145 [facility] Comment on above: Performed By: #### L 100.0500, L501.5200, L501.2300, L500.4050 ####[facility] [address] [place], [address] T PROT 6.0 g/dL Normal 5.9-8.4 [facility] Comment on above: Performed By: #### L 100.0500, L501.5200, L501.2300, L500.4050 ####[facility] [address] [place], [address] Urea nitrogen [Mass/Vol] 23 mg/dL High 4-19 [facility] Comment on above: Performed By: #### L 100.0500, L501.5200, L501.2300, L500.4050 ####[facility] [address] [place], [address] Culture, Blood (WB)on 2024 CUB Blood cultures x2, f rom two different sites No growth in 5 days. Normal [facility] Comment on above: Performed By: #### M 200.1000 ####[facility] [address] [place], [address] Laboratory - Chemistry and C hemistry - challengeOrdered By: Behzad Dorado on 08-23-2024 AST [Catalytic activity/Vol] 28 U/L <32 [facility] Magnesiumon 08-23-2024 Magnesium [Mass/Vol] 2.1 mg/dL Normal 1.5-2.2 [facility] Comment on above: Performed By: #### L 100.0500, L501.5200, L501.2300, L500.4050 ####[facility] [address] [place], [address] Magnesium measurement (mass/ volume)Ordered By: Behzad Dorado on 08-23-2024 Magnesium (Unsp spec) [Mass/Vol] 2.1 mg/dL 1.5-2.2 [facility] Phosphoruson 08-23-2024 Phosphate [Mass/Vol] 3.9 mg/dL Normal 2.7-4.5 [facility] Comment on above: Performed By: #### L 100.0500, L501.5200, L501.2300, L500.4050 ####[facility] [address] [place], [place], [id number] Serum globulin measurementOr dered By: Behzad Estrada on 08-23-2024 Globulin (S) [Mass/Vol] 2.6 g/dL 2.2-4.2 [facility] Serum or plasma alanine tierney otransferase (ALT) measurementOrdered By: Behzad Dorado on 08-23-2024 ALT [Catalytic activity/Vol] 18 U/L <35 [facility] Serum or plasma albumin camilo urement (mass/volume)Ordered By: Behzad Estrada on 08-23-2024 Albumin [Mass/Vol] 3.4 g/dL 3.4-4.8 [facility] Serum or plasma albumin/glob ulin mass ratioOrdered By: Behzad [facility] on 08-23-2024 Albumin/Globulin [Mass ratio] 1.3 {ratio} 0.9-2.4 [facility] Serum or plasma alkaline jordan sphatase measurementOrdered By: Behzad Estrada on 08-23-2024 ALP [Catalytic activity/Vol] 74 U/L 35-104 [facility] Total proteinOrdered By: Maday Dorado on 08-23-2024 Protein [Mass/Vol] 6.0 g/dL 5.9-8.4 [facility] Vitamin D,25 Hydroxyon 08-23 Vitamin D 25-OH 35.6 ng/mL Normal 30-100 [facility] Comment on above: Result Comment: Tati min D StatusDeficiency: <20 ng/mL (50nmol/L)Insufficiency: 20-30 ng/mL (50-75 nmol/L)Sufficiency: 30-100 ng/mL (75-250 nmol/L)Toxicity: >100 ng/mL (>250 nmol/L) Performed By: #### L 506.1001 ####[facility] [address] [place], [address] Anion gap in Serum or Plasma Ordered By: Mara Mar on 08-22-2024 Anion gap [Moles/Vol] 9 mmol/L 5-15 [facility] BUN/creatinine ratioOrdered By: Mara Mar on 08-22-2024 Urea nitrogen/Creatinine [Mass ratio] 39.3 mg/mg High - [facility] Basic Metabolic Profile (BMP )on 08-22-2024 BUN/CRE 39.3 RATIO High - [facility] Comment on above: Performed By: #### L 100.0500, L500.2500 ####[facility] [address] [place], [address] Calcium [Mass/Vol] 9.1 mg/dL Normal 7.6-11.0 [facility] Comment on above: Performed By: #### L 100.0500, L500.2500 ####[facility] [address] [place], [address] Chloride [Moles/Vol] 111 mmol/L High 98-108 [facility] Comment on above: Performed By: #### L 100.0500, L500.2500 ####[facility] [address] [place], [address] CO2 [Moles/Vol] 22.3 mmol/L Normal 21.0-32.0 [facility] Comment on above: Performed By: #### L 100.0500, L500.2500 ####[facility] [address] [place], [address] Creatinine [Mass/Vol] 0.78 mg/dL Normal 0.70-1.20 [facility] Comment on above: Performed By: #### L 100.0500, L500.2500 ####[facility] [address] [place], [address] ECRCL 39.92 ml/min Low 50-250 [facility] Comment on above: Performed By: #### L 100.0500, L500.2500 ####[facility] [address] [place], [address] GAP 9 Normal 5-15 [facility] Comment on above: Performed By: #### L 100.0500, L500.2500 ####[facility] [address] [place], [address] GFR/1.73 sq M.predicted among non-blacks MDRD (S/P/Bld) [Vol rate/Area] 74 mL/min/{1.73_m2} Normal >60 [facility] Comment on above: Result Comment: mL/m in/1.73m2 CKD-EPI Creatinine Equation (2020) Performed By: #### L 100.0500, L500.2500 ####[facility] [address] [place], [address] Glucose [Mass/Vol] 96 mg/dL Normal 70-99 [facility] Comment on above: Performed By: #### L 100.0500, L500.2500 ####[facility] [address] [place], [address] Potassium [Moles/Vol] 4.1 mmol/L Normal 3.3-5.1 [facility] Comment on above: Performed By: #### L 100.0500, L500.2500 ####[facility] [address] [place], [address] Sodium [Moles/Vol] 142 mmol/L Normal 133-145 [facility] Comment on above: Performed By: #### L 100.0500, L500.2500 ####[facility] [address] [place], [address] Urea nitrogen [Mass/Vol] 31 mg/dL High 4-19 [facility] Comment on above: Performed By: #### L 100.0500, L500.2500 ####[facility] [address] [place], [address] CBC-Complete Blood Cnt No Di ffon 08-22-2024 Erythrocyte distribution width (RBC) [Ratio] 13.1 % Normal 11.6-14.6 [facility] Comment on above: Performed By: #### L 100.0500, L500.2500 ####[facility] [address] [place], [address] Hematocrit (Bld) [Volume fraction] 34.7 % Low 37-47 [facility] Comment on above: Performed By: #### L 100.0500, L500.2500 ####[facility] [address] [place], [address] Hemoglobin (Bld) [Mass/Vol] 11.0 g/dL Low 12.0-15.0 [facility] Comment on above: Performed By: #### L 100.0500, L500.2500 ####[facility] [address] [place], [address] MCH (RBC) [Entitic mass] 31.3 pg Normal 27.0-32.0 [facility] Comment on above: Performed By: #### L 100.0500, L500.2500 ####[facility] [address] [place], [address] MCHC (RBC) [Mass/Vol] 31.7 g/dL Low 32-36 [facility] Comment on above: Performed By: #### L 100.0500, L500.2500 ####[facility] [address] [place], [address] MCV (RBC) [Entitic vol] 98.6 fL Normal 81-99 [facility] Comment on above: Performed By: #### L 100.0500, L500.2500 ####[facility] [address] [place], [address] Platelet mean volume (Bld) [Entitic vol] 9.6 fL Normal 6.2-12.0 [facility] Comment on above: Performed By: #### L 100.0500, L500.2500 ####[facility] [address] [place], [address] Platelets (Bld) [#/Vol] 245 10*3/uL Normal 150-450 [facility] Comment on above: Performed By: #### L 100.0500, L500.2500 ####[facility] [address] [place], [address] RBC (Bld) [#/Vol] 3.52 10*6/uL Low 4.2-5.4 [facility] Comment on above: Performed By: #### L 100.0500, L500.2500 ####[facility] [address] [place], [address] RDW SD 47.0 fl High 35.1-43.9 [facility] Comment on above: Performed By: #### L 100.0500, L500.2500 ####[facility] [address] [place], [address] WBC (Bld) [#/Vol] 5.7 10*3/uL Normal 4.4-11.0 [facility] Comment on above: Performed By: #### L 100.0500, L500.2500 ####[facility] [address] [place], [address] Carbon dioxide, total [Moles /volume] in Central venous bloodOrdered By: Mara Mar on 08-22-2024 CO2 [Moles/Vol] 22.3 mmol/L 21.0-32.0 [facility] Chloride assayOrdered By: Akosua Mar on 08-22-2024 Chloride [Moles/Vol] 111 mmol/L High 98-108 [facility] Erythrocyte distribution wid th ratioOrdered By: Mara Mar on 08-22-2024 Erythrocyte distribution width (RBC) [Ratio] 13.1 % 11.6-14.6 [facility] Erythrocyte distribution wid th standard deviationOrdered By: Mara Mar on 08-22-2024 Erythrocyte distribution width (RBC) [Ratio] 47.0 fl High 35.1-43.9 [facility] Glomerular filtration rate ( GFR) estimation/1.73 sq m using serum, plasma, or whole bOrdered By: Mara Mar on 08-22-2024 GFR/1.73 sq M.predicted among non-blacks MDRD (S/P/Bld) [Vol rate/Area] 74 mL/min/{1.73_m2} >60 [facility] Comment on above: mL/min/1.73m2 CKD-EP I Creatinine Equation (2020) Hematocrit Auto (Bld) [Volum e fraction]Ordered By: Mara Mar on 08-22-2024 Hematocrit (Bld) [Volume fraction] 34.7 % Low 37-47 [facility] Hemoglobin measurementOrdere d By: Mara Mar on 08-22-2024 Hemoglobin (Bld) [Mass/Vol] 11.0 g/dL Low 12.0-15.0 [facility] MCV (mean corpuscular volume ) determinationOrdered By: Mara Mar on 08-22-2024 MCV (RBC) [Entitic vol] 98.6 fL 81-99 [facility] Mean corpuscular hemoglobin (MCH) determinationOrdered By: Mara Mar on 08-22-2024 MCH (RBC) [Entitic mass] 31.3 pg 27.0-32.0 [facility] Mean corpuscular hemoglobin concentration (MCHC) determinationOrdered By: Mara Mar on 08-22-2024 MCHC (RBC) [Mass/Vol] 31.7 g/dL Low 32-36 [facility] Mean platelet volume determi nationOrdered By: Mara Mar on 08-22-2024 Platelet mean volume (Bld) [Entitic vol] 9.6 fL 6.2-12.0 [facility] Platelet countOrdered By: Akosua Mar on 08-22-2024 Platelets (Bld) [#/Vol] 245 10*3/uL 150-450 [facility] Potassium measurement (mass/ volume)Ordered By: Mara Mar on 08-22-2024 Potassium (Unsp spec) [Mass/Vol] 4.1 mmol/L 3.3-5.1 [facility] RBC Auto (Bld) [#/Vol]Ordere d By: Mara Mar on 08-22-2024 RBC (Bld) [#/Vol] 3.52 10*6/uL Low 4.2-5.4 [facility] Serum creatinine measurement (mass/volume)Ordered By: Mara Mar on 08-22-2024 Creatinine [Mass/Vol] 0.78 mg/dL 0.70-1.20 [facility] Serum glucose measurement (m ass/volume)Ordered By: Mara Mar on 08-22-2024 Glucose [Mass/Vol] 96 mg/dL 70-99 [facility] Serum or plasma calcium camilo urement (mass/volume)Ordered By: Mara Mar on 08-22-2024 Calcium [Mass/Vol] 9.1 mg/dL 7.6-11.0 [facility] Serum or plasma urea nitroge n measurement (mass/volume)Ordered By: Mara Mar on 08-22-2024 Urea nitrogen [Mass/Vol] 31 mg/dL High 4-19 [facility] Sodium levelOrdered By: Eliana Mar on 08-22-2024 Sodium [Moles/Vol] 142 mmol/L 133-145 [facility] White blood cell (WBC) count Ordered By: Mara Mar on 08-22-2024 WBC (Bld) [#/Vol] 5.7 10*3/uL 4.4-11.0 [facility] Electrocardiogram reportOrde red By: Swapnil Balderrama on 08-20-2024 EKG study [facility] [address] [place] [address] 12 Lead EKG 08/18/24 1103 MR#: [id number] Acct: [id number] Name: BEHZAD HAY Rep #:[id number] : 1940 84 From: Swapnil granados MD Attending Dr: Dr. Mara Mar, DO S tatus: ADM IN Ordering Dr: Fawad Cordon DO Date: 0 08/18/24 Location: [facility] Sex: F C Admitted: 08/18/24 Test Reason : Blood Pressure : */* mmHG Vent. Rate : 72 BPM Atrial Rate : 72 BPM P-R Int : 152 ms QRS Dur : 82 ms QT Int : 410 ms P-R-T Axes : 28 -2 5 degrees QTcB Int : 448 ms Normal sinus rhythm Normal ECG Confirmed by Swapnil Balderrama ([id number]), editor managing director LOVELY RAMSEY ([id number]) on 08/20/2024 12:21:07 PM Referred By: Confirmed By: Swapnil Balderrama 08/20/24 1221 Date _ Swapnil Balderrama MD CC: GARFIELD Deutsch; Dr. Fawad Cordon DO; Dr. Mara Mar DO ~ Signed [facility] Other Phone: Urine Cultureon 08-20-2024 URC Normal [facility] Comment on above: Performed By: #### M 100.2200 ####[facility] [address] [place], [address] Absolute lymphocyte countOrd ered By: Mara Mar on 08-19-2024 Lymphocytes Auto (Unsp spec) [#/Vol] 1.07 10*3/uL 0.83-4.51 [facility] Absolute neutrophil countOrd ered By: Mara Mar on 08-19-2024 Neutrophils (Bld) [#/Vol] 4.0 10*3/uL 2.0-7.7 [facility] Automated lymphocyte count a s percentage of total leukocytesOrdered By: Mara Mar on 08-19-2024 Lymphocytes/100 WBC Auto (Unsp spec) 18.3 % Low 19-41 [facility] Basophil percentageOrdered B y: Mara Mar on 08-19-2024 Basophils/100 WBC (Bld) 1.2 % High 0-1 [facility] Bilirubin, totalOrdered By: Mara Mar on 08-19-2024 Bilirubin [Mass/Vol] 0.36 mg/dL 0.00-1.30 [facility] CBC W/Diff, Automatedon 05-0 -2024 Absolute Lymph 1.07 X10 3/uL Normal 0.83-4.51 [facility] Comment on above: Performed By: #### L 501.9520, L501.2300, L100.0100, L500.4050, L500.4100, L501.5200 ####[facility] [address] [place], [address] Absolute Neut 4.0 X10 3/uL Normal 2.0-7.7 [facility] Comment on above: Performed By: #### L 501.9520, L501.2300, L100.0100, L500.4050, L500.4100, L501.5200 ####[facility] [address] [place], [address] Basophils/100 WBC (Bld) 1.2 % High 0-1 [facility] Comment on above: Performed By: #### L 501.9520, L501.2300, L100.0100, L500.4050, L500.4100, L501.5200 ####[facility] [address] [place], [address] Eosinophils/100 WBC (Bld) 3.9 % Normal 0-5 [facility] Comment on above: Performed By: #### L 501.9520, L501.2300, L100.0100, L500.4050, L500.4100, L501.5200 ####[facility] [address] [place], [address] Erythrocyte distribution width (RBC) [Ratio] 13.1 % Normal 11.6-14.6 [facility] Comment on above: Performed By: #### L 501.9520, L501.2300, L100.0100, L500.4050, L500.4100, L501.5200 ####[facility] [address] [place], [address] Hematocrit (Bld) [Volume fraction] 36.9 % Low 37-47 [facility] Comment on above: Performed By: #### L 501.9520, L501.2300, L100.0100, L500.4050, L500.4100, L501.5200 ####[facility] [address] [place], [address] Hemoglobin (Bld) [Mass/Vol] 11.8 g/dL Low 12.0-15.0 [facility] Comment on above: Performed By: #### L 501.9520, L501.2300, L100.0100, L500.4050, L500.4100, L501.5200 ####[facility] [address] [place], [address] IG% 0.300 Normal 0.0-0.9 [facility] Comment on above: Result Comment: IG% - Immature Granulocytes (promyelocytes, myelocytes andmetamyelocytes) > 1% indicates that a LEFT SHIFT is Present. Performed By: #### L 501.9520, L501.2300, L100.0100, L500.4050, L500.4100, L501.5200 ####[facility] [address] [place], [address] Lymphocytes/100 WBC (Bld) 18.3 % Low 19-41 [facility] Comment on above: Performed By: #### L 501.9520, L501.2300, L100.0100, L500.4050, L500.4100, L501.5200 ####[facility] [address] [place], [address] MCH (RBC) [Entitic mass] 31.0 pg Normal 27.0-32.0 [facility] Comment on above: Performed By: #### L 501.9520, L501.2300, L100.0100, L500.4050, L500.4100, L501.5200 ####[facility] [address] [place], [address] MCHC (RBC) [Mass/Vol] 32.0 g/dL Normal 32-36 [facility] Comment on above: Performed By: #### L 501.9520, L501.2300, L100.0100, L500.4050, L500.4100, L501.5200 ####[facility] [address] [place], [address] MCV (RBC) [Entitic vol] 96.9 fL Normal 81-99 [facility] Comment on above: Performed By: #### L 501.9520, L501.2300, L100.0100, L500.4050, L500.4100, L501.5200 ####[facility] [address] [place], [address] Monocytes/100 WBC (Bld) 8.5 % Normal 0-10 [facility] Comment on above: Performed By: #### L 501.9520, L501.2300, L100.0100, L500.4050, L500.4100, L501.5200 ####[facility] [address] [place], [address] Neutrophils/100 WBC (Bld) 67.8 % Normal 47-70 [facility] Comment on above: Performed By: #### L 501.9520, L501.2300, L100.0100, L500.4050, L500.4100, L501.5200 ####[facility] [address] [place], [address] Nucleated RBC (Bld) [#/Vol] 0 10*3/uL Normal 0-5 [facility] Comment on above: Performed By: #### L 501.9520, L501.2300, L100.0100, L500.4050, L500.4100, L501.5200 ####[facility] [address] [place], [address] Platelet mean volume (Bld) [Entitic vol] 8.9 fL Normal 6.2-12.0 [facility] Comment on above: Performed By: #### L 501.9520, L501.2300, L100.0100, L500.4050, L500.4100, L501.5200 ####[facility] [address] [place], [address] Platelets (Bld) [#/Vol] 237 10*3/uL Normal 150-450 [facility] Comment on above: Performed By: #### L 501.9520, L501.2300, L100.0100, L500.4050, L500.4100, L501.5200 ####[facility] [address] [place], [address] RBC (Bld) [#/Vol] 3.81 10*6/uL Low 4.2-5.4 [facility] Comment on above: Performed By: #### L 501.9520, L501.2300, L100.0100, L500.4050, L500.4100, L501.5200 ####[facility] [address] [place], [address] RDW SD 46.8 fl High 35.1-43.9 [facility] Comment on above: Performed By: #### L 501.9520, L501.2300, L100.0100, L500.4050, L500.4100, L501.5200 ####[facility] [address] [place], [address] WBC (Bld) [#/Vol] 5.9 10*3/uL Normal 4.4-11.0 [facility] Comment on above: Performed By: #### L 501.9520, L501.2300, L100.0100, L500.4050, L500.4100, L501.5200 ####[facility] [address] [place], [address] Calculated very low density lipoprotein (VLDL) cholesterol measurementOrdered By: Mara Mar on 08-19-2024 Calculated very low density lipoprotein (VLDL) cholesterol measurement 15 mg/dL 5-40 [facility] Comprehensive Metabolic Prof ilon 08-19-2024 Albumin [Mass/Vol] 3.7 g/dL Normal 3.4-4.8 [facility] Comment on above: Order Comment: Comme nts: NPO at [place] prior to lipid panel Performed By: #### L 501.9520, L501.2300, L100.0100, L500.4050, L500.4100, L501.5200 ####[facility] [address] [place], [address] Albumin/Globulin [Mass ratio] 1.4 {ratio} Normal 0.9-2.4 [facility] Comment on above: Order Comment: Comme nts: NPO at [place] prior to lipid panel Performed By: #### L 501.9520, L501.2300, L100.0100, L500.4050, L500.4100, L501.5200 ####[facility] [address] [place], [address] ALK PHOS 70 U/L Normal 35-104 [facility] Comment on above: Order Comment: Comme nts: NPO at [place] prior to lipid panel Performed By: #### L 501.9520, L501.2300, L100.0100, L500.4050, L500.4100, L501.5200 ####[facility] [address] [place], [address] ALT [Catalytic activity/Vol] 18 U/L Normal <=34 [facility] Comment on above: Order Comment: Comme nts: NPO at [place] prior to lipid panel Performed By: #### L 501.9520, L501.2300, L100.0100, L500.4050, L500.4100, L501.5200 ####[facility] [address], [address] AST [Catalytic activity/Vol] 33 U/L High <=31 [facility] Comment on above: Order Comment: Comme nts: NPO at [place] prior to lipid panel Performed By: #### L 501.9520, L501.2300, L100.0100, L500.4050, L500.4100, L501.5200 ####[facility] [address] [place], [address] Bilirubin [Mass/Vol] 0.36 mg/dL Normal 0.00-1.30 [facility] Comment on above: Order Comment: Comme nts: NPO at [place] prior to lipid panel Performed By: #### L 501.9520, L501.2300, L100.0100, L500.4050, L500.4100, L501.5200 ####[facility] [address] [place], [address] BUN/CRE 20.6 RATIO High 10-20 [facility] Comment on above: Order Comment: Comme nts: NPO at [place] prior to lipid panel Performed By: #### L 501.9520, L501.2300, L100.0100, L500.4050, L500.4100, L501.5200 ####[facility] [address] [place], [address] Calcium [Mass/Vol] 9.1 mg/dL Normal 7.6-11.0 [facility] Comment on above: Order Comment: Comme nts: NPO at [place] prior to lipid panel Performed By: #### L 501.9520, L501.2300, L100.0100, L500.4050, L500.4100, L501.5200 ####[facility] [address] [place], [address] Chloride [Moles/Vol] 106 mmol/L Normal 98-108 [facility] Comment on above: Order Comment: Comme nts: NPO at [place] prior to lipid panel Performed By: #### L 501.9520, L501.2300, L100.0100, L500.4050, L500.4100, L501.5200 ####[facility] [address] [place], [address] CO2 [Moles/Vol] 23.7 mmol/L Normal 21.0-32.0 [facility] Comment on above: Order Comment: Comme nts: NPO at [place] prior to lipid panel Performed By: #### L 501.9520, L501.2300, L100.0100, L500.4050, L500.4100, L501.5200 ####[facility] [address] [place], [address] Creatinine [Mass/Vol] 0.84 mg/dL Normal 0.70-1.20 [facility] Comment on above: Order Comment: Comme nts: NPO at [place] prior to lipid panel Performed By: #### L 501.9520, L501.2300, L100.0100, L500.4050, L500.4100, L501.5200 ####[facility] [address] [place], [address] ECRCL 38.02 ml/min Low 50-250 [facility] Comment on above: Order Comment: Comme nts: NPO at [place] prior to lipid panel Performed By: #### L 501.9520, L501.2300, L100.0100, L500.4050, L500.4100, L501.5200 ####[facility] [address] [place], [address] GAP 10 Normal 5-15 [facility] [facility] Comment on above: Order Comment: Comme nts: NPO at [place] prior to lipid panel Performed By: #### L 501.9520, L501.2300, L100.0100, L500.4050, L500.4100, L501.5200 ####[facility] [address] [place], [address] GFR/1.73 sq M.predicted among non-blacks MDRD (S/P/Bld) [Vol rate/Area] 68 mL/min/{1.73_m2} Normal >60 [facility] Comment on above: Order Comment: Comme nts: NPO at [place] prior to lipid panel Result Comment: mL/m in/1.73m2 CKD-EPI Creatinine Equation (2020) Performed By: #### L 501.9520, L501.2300, L100.0100, L500.4050, L500.4100, L501.5200 ####[facility] [address] [place], [address] Globulin (S) [Mass/Vol] 2.6 g/dL Normal 2.2-4.2 [facility] Comment on above: Order Comment: Comme nts: NPO at [place] prior to lipid panel Performed By: #### L 501.9520, L501.2300, L100.0100, L500.4050, L500.4100, L501.5200 ####[facility] [address] [place], [address] Glucose [Mass/Vol] 102 mg/dL High 70-99 [facility] Comment on above: Order Comment: Comme nts: NPO at [place] prior to lipid panel Performed By: #### L 501.9520, L501.2300, L100.0100, L500.4050, L500.4100, L501.5200 ####[facility] [address] [place], [address] Potassium [Moles/Vol] 4.3 mmol/L Normal 3.3-5.1 [facility] Comment on above: Order Comment: Comme nts: NPO at [place] prior to lipid panel Performed By: #### L 501.9520, L501.2300, L100.0100, L500.4050, L500.4100, L501.5200 ####[facility] [address] [place], [address] Sodium [Moles/Vol] 140 mmol/L Normal 133-145 [facility] Comment on above: Order Comment: Comme nts: NPO at [place] prior to lipid panel Performed By: #### L 501.9520, L501.2300, L100.0100, L500.4050, L500.4100, L501.5200 ####[facility] [address] [place], [address] T PROT 6.3 g/dL Normal 5.9-8.4 [facility] Comment on above: Order Comment: Comme nts: NPO at [place] prior to lipid panel Performed By: #### L 501.9520, L501.2300, L100.0100, L500.4050, L500.4100, L501.5200 ####[facility] [address] [place], [address] Urea nitrogen [Mass/Vol] 17 mg/dL Normal 4-19 [facility] Comment on above: Order Comment: Comme nts: NPO at [place] prior to lipid panel Performed By: #### L 501.9520, L501.2300, L100.0100, L500.4050, L500.4100, L501.5200 ####[facility] [address], [address] Echocardiogram study reportO rdered By: Cricket Leyva on 08-19-2024 Study report [facility] [address] [place] [address] Echo Complete 08/19/24 0944 MR#: [id number] Acct: [id number] Name: BEHZAD HAY Rep #:[id number] : 1940 84 From: Cricket Leyva MD Attending Dr: DO Brittney Feliz tatus: ADM IN Ordering Dr: Mara Mar DO Date: 11/05 Location: [facility] Sex: F C Admitted: 08/18/24 Reason For Study Reason For Study: TIA/CVA Procedure This was a 2D Doppler, Color Flow transthoracic echocardiogram. Exam performed portable in patient room. Left Ventricle Normal size and thickness. The LV systolic function is normal. EF is 65 %. Diastolic function is indeterminate. Right Ventricle Normal right ventricle. Atria The left atrium is mildly enlarged. Normal right atrium. Mitral Valve Mild focal mitral valve calcification of the posterior leaflet. Trivial mitral valve insufficiency. Tricuspid Valve Trivial tricuspid valve insufficiency. Unable to estimate RV systolic pressure due to insufficient tricuspid regurgitant envelope. Aortic Valve Mildly calcified aortic valve. Aortic valve sclerosis without stenosis. Pulmonic Valve The pulmonic valve is not well visualized. Trivial pulmonic valve insufficiency. Great Vessels Mildly calcified aortic root. Pericardium/Pleural No pericardial effusion. MMode/2D Measurements & Calculations LVIDd: 4.7 cm IVSd: 0.86 cm LVOT diam: 2.0 cm LVIDs: 2.9 cm LVPWd: 1.1 cm LVOT area: 3.1 cm2 RVDd: 3.3 cm FS: 38.8 % Ao root diam: 3.3 cm LAV(MOD-bp): 54.2 ml LVAd ap4: 20.1 cm2 LAV(MOD-bp) Indexed: 35.9 ml/m2 LVLd ap4: 6.5 cm LAV(MOD-sp2): 53.1 ml EDV(MOD-sp4): 55.1 ml LAV(MOD-sp4): 47.7 ml EDV(sp4-el): 52.4 ml LVAs ap4: 10.9 cm2 LVLs ap4: 5.7 cm ESV(MOD-sp4): 17.8 ml ESV(sp4-el): 17.6 ml EF(MOD-sp4): 67.7 % EF(sp4-el): 66.5 % SV(MOD-sp4): 37.3 ml SV(sp4-el): 34.9 ml LA A4 area: 18.6 cm2 SI(MOD-sp4): 24.7 ml/m2 LA dimension(2D): 4.1 cm RA A4 area: 16.1 cm2 TAPSE: 2.1 cm Time Measurements MV dec time: 0.24 sec Doppler Measurements & Calculations MV E max jeri: 77.5 cm/sec Lat Peak E' Jeri: 10.9 cm/sec Med Peak E' Jeri: 6.9 cm/sec MV A max jeri: 96.5 cm/sec E/E' lat: 7.1 E/E' med: 11.3 MV E/A: 0.80 MV V2 max: 103.9 cm/sec MV P1/2t max jeri: 80.6 cm/sec Ao V2 max: 196.5 cm/sec MV max P.3 mmHg MV P1/2t: 78.8 msec Ao max P.5 mmHg MV V2 mean: 57.5 cm/sec Ao V2 mean: 125.9 cm/sec MV mean P.5 mmHg MV dec slope: 299.5 cm/sec2 Ao mean P.2 mmHg MV V2 VTI: 26.0 cm MVA(P1/2t): 2.8 cm2 Ao V2 VTI: 37.9 cm AV (velocity ratio): 0.62 MVA(VTI): 2.8 cm2 CORONA(I,D): 1.9 cm2 CORONA(V,D): 1.7 cm2 LV V1 max: 105.7 cm/sec SV(LVOT): 73.3 ml PA V2 max: 81.9 cm/sec LV V1 max P.5 mmHg LV V1 mean P.3 mmHg LV V1 mean: 70.3 cm/sec LV V1 VTI: 23.5 cm ECHO/Echo Complete Interpretation Summary The LV systolic function is normal. EF is 65 %. Diastolic function is indeterminate. The left atrium is mildly enlarged. Mild focal mitral valve calcification of the posterior leaflet. Mildly calcified aortic valve. Aortic valve sclerosis without stenosis. Mildly calcified aortic root. Ordering Physician: Mara Mar Performed By: Abelardo Romero RCS 08/19/24 1215 Date _ Cricket Leyva MD CC: GARFIELD Deutsch; Dr. Mara Mar, DO ~ Date Dictated: 08/19/24943 Date Transcribed: 08/19/241214 Patient Carrier: Signed [facility] Work Phone: Eosinophil percentageOrdered By: Mara Mar on 08-19-2024 Eosinophils/100 WBC (Bld) 3.9 % 0-5 [facility] Immature granulocytes/100 WB C Auto (Bld)Ordered By: Mara Mar on 08-19-2024 Immature granulocytes/100 WBC (Bld) 0.300 % 0.0-0.9 [facility] Comment on above: IG% - Immature Granu locytes (promyelocytes, myelocytes and metamyelocytes) > 1% indicates that a LEFT SHIFT is Present. LDL calc ser/plasOrdered By: Mara Mar on 08-19-2024 Cholesterol in LDL [Mass/Vol] 112 mg/dL [facility] Comment on above: Iaadcblybs=276-473 m g/dL & Higher Dbmm=978 mg/dL or greater Laboratory - Chemistry and C hemistry - challengeOrdered By: Mara Mar on 08-19-2024 AST [Catalytic activity/Vol] 33 U/L High <32 [facility] Lipid Profileon 08-19-2024 CHOL:HDL 3.03 Normal [facility] Comment on above: Order Comment: Comme nts: NPO at [place] prior to lipid panel Performed By: #### L 501.9520, L501.2300, L100.0100, L500.4050, L500.4100, L501.5200 ####[facility] [address] [place], [address] Cholesterol [Mass/Vol] 189 mg/dL Normal <=200 [facility] Comment on above: Order Comment: Comme nts: NPO at [place] prior to lipid panel Result Comment: Chol esterol level, Desirable <200 mg/dLBorderline high cholesterol 200-239 mg/dLHigh cholesterol >=240 mg/dLRecommendations of the NCEP Adult Treatment Panel for thefollowing risk-cutoff thresholds for the [place] Americanpulation. Performed By: #### L 501.9520, L501.2300, L100.0100, L500.4050, L500.4100, L501.5200 ####[facility] [address] [place], [place], [phone] Cholesterol in HDL [Mass/Vol] 62 mg/dL Normal [facility] Comment on above: Order Comment: Comme nts: NPO at [place] prior to lipid panel Result Comment: Jo onal Cholesterol Education Program (NCEP) guidelines:<40 mg/dL: Low HDL-cholesterol (major risk factor for CHD)>= 60 mg/dL: High HDL-cholesterol (negative risk factor forCHD)HDL-cholesterol is affected by a number of factors, e.g.smoking, exercise, hormones, sex and age. Performed By: #### L 501.9520, L501.2300, L100.0100, L500.4050, L500.4100, L501.5200 ####[facility] [address] [place], [address] Cholesterol in LDL [Mass/Vol] 112 mg/dL Normal [facility] Comment on above: Order Comment: Comme nts: NPO at CT prior to lipid panel Result Comment: Bord rjxzqj=812-883 mg/dL Higher Udex=530 mg/dL or greater Performed By: #### L 501.9520, L501.2300, L100.0100, L500.4050, L500.4100, L501.5200 ####[facility] [address] [place], [place], [phone]) Cholesterol in VLDL [Mass/Vol] 15 mg/dL Normal 5-40 [facility] Comment on above: Order Comment: Comme nts: NPO at CT prior to lipid panel Performed By: #### L 501.9520, L501.2300, L100.0100, L500.4050, L500.4100, L501.5200 ####[facility] [address] [place], [address] Triglyceride [Mass/Vol] 75 mg/dL Normal [facility] Comment on above: Order Comment: Comme nts: NPO at CT prior to lipid panel Result Comment: The drugs N-Acetylcysteine and Metamizole may falselydepress this assay.Normal range: <150 mg/dLBorderline High: 150-199 mg/dLHigh: 200-499 mg/dLVery High: >500 mg/dL Performed By: #### L 501.9520, L501.2300, L100.0100, L500.4050, L500.4100, L501.5200 ####[facility] [address] [place], [address] MR/CON.PCM.NEon 08-19-2024 MR/CON.PCM.NE Normal [facility] Magnesiumon 08-19-2024 Magnesium [Mass/Vol] 2.3 mg/dL High 1.5-2.2 [facility] Comment on above: Order Comment: Comme nts: NPO at CT prior to lipid panel Performed By: #### L 501.9520, L501.2300, L100.0100, L500.4050, L500.4100, L501.5200 ####[facility] [address] [place], [place], [id number] Magnesium measurement (mass/ volume)Ordered By: Mara Mar on 08-19-2024 Magnesium (Unsp spec) [Mass/Vol] 2.3 mg/dL High 1.5-2.2 [facility] Monocyte percentageOrdered B y: Mara Mar on 08-19-2024 Monocytes/100 WBC (Bld) 8.5 % 0-10 [facility] Neutrophil percentageOrdered By: Mara Mar on 08-19-2024 Neutrophils/100 WBC (Bld) 67.8 % 47-70 [facility] Nucleated red blood cell per centageOrdered By: Mara Mar on 08-19-2024 Nucleated RBC/100 WBC (Bld) [Ratio] 0 % 0-5 [facility] Phosphoruson 08-19-2024 Phosphate [Mass/Vol] 3.2 mg/dL Normal 2.7-4.5 [facility] Comment on above: Order Comment: Comme nts: NPO at CT prior to lipid panel Performed By: #### L 501.9520, L501.2300, L100.0100, L500.4050, L500.4100, L501.5200 ####[facility] [address] [place], [address] Screening total cholesterol/ high density lipoprotein (HDL) cholesterol ratioOrdered By: Mara Mar on 08-19-2024 Cholesterol.total/Cho lesterol in HDL [Mass ratio] 3.03 {ratio} [facility] Serum globulin measurementOr dered By: aMra Mar on 08-19-2024 Globulin (S) [Mass/Vol] 2.6 g/dL 2.2-4.2 [facility] Serum or plasma alanine tierney otransferase (ALT) measurementOrdered By: Mara Mar on 08-19-2024 ALT [Catalytic activity/Vol] 18 U/L <35 [facility] Serum or plasma albumin camilo urement (mass/volume)Ordered By: Mara Mar on 08-19-2024 Albumin [Mass/Vol] 3.7 g/dL 3.4-4.8 [facility] Serum or plasma albumin/glob ulin mass ratioOrdered By: Mara Mar on 08-19-2024 Albumin/Globulin [Mass ratio] 1.4 {ratio} 0.9-2.4 [facility] Serum or plasma alkaline jordan sphatase measurementOrdered By: Mara Mar on 08-19-2024 ALP [Catalytic activity/Vol] 70 U/L 35-104 [facility] Serum or plasma cholesterol in HDL measurement (mass/volume)Ordered By: Mara Mar on 08-19-2024 Cholesterol in HDL [Mass/Vol] 62 mg/dL >40 [facility] Comment on above: National Cholesterol Education Program (NCEP) guidelines:<40 mg/dL: Low HDL-cholesterol (major risk factor for CHD)>= 60 mg/dL: High HDL-cholesterol (negative risk factor for CHD)HDL-cholesterol is affected by a number of factors, e.g. smoking, exercise, hormones, sex and age. Serum or plasma cholesterol measurement (mass/volume)Ordered By: Mara Mar on 08-19-2024 Cholesterol [Mass/Vol] 189 mg/dL <201 [facility] Comment on above: Cholesterol level, D esirable <200 mg/dLBorderline high cholesterol 200-239 mg/dLHigh cholesterol >=240 mg/dLRecommendations of the NCEP Adult Treatment Panel for the following risk-cutoff thresholds for the [place] population. TSH DL <= 0.005 mIU/L QnOrde red By: Mara Mar on 08-19-2024 TSH Qn 1.590 uIU/mL 0.300-4.20 0 [facility] Thyroid Stim Hormone (TSH)on 08-19-2024 TSH 1.590 uIU/mL Normal 0.300-4.20 0 [facility] Comment on above: Order Comment: Comme nts: NPO at CT prior to lipid panel Performed By: #### L 501.9520, L501.2300, L100.0100, L500.4050, L500.4100, L501.5200 ####[facility] [address] [place], [address] Total proteinOrdered By: Randa Mar on 08-19-2024 Protein [Mass/Vol] 6.3 g/dL 5.9-8.4 [facility] Triglycerides measurementOrd ered By: Mara Mar on 08-19-2024 Triglyceride [Mass/Vol] 75 mg/dL <199 [facility] Comment on above: The drugs N-Acetylcy steine and Metamizole may falsely depress this assay. Normal range: <150 mg/dLBorderline High: 150-199 mg/dLHigh: 200-499 mg/dLVery High: >500 mg/dL 12 Lead EKGon 08-18-2024 12 Lead EKG Normal [facility] Absolute lymphocyte countOrd ered By: Fawad Cordon on 08-18-2024 Lymphocytes Auto (Unsp spec) [#/Vol] 0.91 10*3/uL 0.83-4.51 [facility] Absolute neutrophil countOrd ered By: Fawad Cordon on 08-18-2024 Neutrophils (Bld) [#/Vol] 6.6 10*3/uL 2.0-7.7 [facility] Activated partial thrombopla stin time (aPTT) in platelet poor plasma by coagulation aOrdered By: Fawad Cordon on 08-18-2024 aPTT Coag (PPP) [Time] 24.6 s 24.1-36.2 [facility] Alcohol, Blood (Medical)-Ser umon 08-18-2024 SERUM ETOH < 10.1 Normal <=10.0 [facility] Comment on above: Result Comment: This test is for medical purposes only. The legaldefinition of intoxication varies according to local law. Performed By: #### L 500.2500, L505.5000, L500.3400, L100.0100, L300.3900, L300.4310, L501.9100 ####[facility] [address] [place], [address] Amphetamine detection with 1 000 ng/mL as cutoffOrdered By: Fawad Cordon on 08-18-2024 Amphetamines Screen method >1000 ng/mL Ql (U) Negative < 200 ng/mL [facility] Anion gap in Serum or Plasma Ordered By: Fawad Cordon on 08-18-2024 Anion gap [Moles/Vol] 11 mmol/L 5-15 [facility] Automated lymphocyte count a s percentage of total leukocytesOrdered By: Fawad Cordon on 08-18-2024 Lymphocytes/100 WBC Auto (Unsp spec) 10.9 % Low 19-41 [facility] BUN/creatinine ratioOrdered By: Fawad Cordon on 08-18-2024 Urea nitrogen/Creatinine [Mass ratio] 27.4 mg/mg [address] [facility] Basic Metabolic Profile (BMP )on 08-18-2024 BUN/CRE 27.[address] Comment on above: Performed By: #### L 500.2500, L505.5000, L500.3400, L100.0100, L300.3900, L300.4310, L501.9100 ####[facility] [address] [place], [address] Calcium [Mass/Vol] 10.0 mg/dL Normal 7.6-11.0 [facility] Comment on above: Performed By: #### L 500.2500, L505.5000, L500.3400, L100.0100, L300.3900, L300.4310, L501.9100 ####[facility] [address] [place], [address] Chloride [Moles/Vol] 106 mmol/L Normal 98-108 [facility] Comment on above: Performed By: #### L 500.2500, L505.5000, L500.3400, L100.0100, L300.3900, L300.4310, L501.9100 ####[facility] [address] [place], [address] CO2 [Moles/Vol] 25.9 mmol/L Normal 21.0-32.0 [facility] Comment on above: Performed By: #### L 500.2500, L505.5000, L500.3400, L100.0100, L300.3900, L300.4310, L501.9100 ####[facility] [address] [place], [address] Creatinine [Mass/Vol] 1.00 mg/dL Normal 0.70-1.20 [facility] Comment on above: Performed By: #### L 500.2500, L505.5000, L500.3400, L100.0100, L300.3900, L300.4310, L501.9100 ####[facility] [address] [place], [address] ECRCL 31.63 ml/min Low 50-250 [facility] Comment on above: Performed By: #### L 500.2500, L505.5000, L500.3400, L100.0100, L300.3900, L300.4310, L501.9100 ####[facility] [address] [place], [address] GAP 11 Normal 5-15 [facility] Comment on above: Performed By: #### L 500.2500, L505.5000, L500.3400, L100.0100, L300.3900, L300.4310, L501.9100 ####[facility] [address] [place], [place], [phone](129) GFR/1.73 sq M.predicted among non-blacks MDRD (S/P/Bld) [Vol rate/Area] 55 mL/min/{1.73_m2} Low >60 [facility] Comment on above: Result Comment: mL/m in/1.73m2 CKD-EPI Creatinine Equation (2020) Performed By: #### L 500.2500, L505.5000, L500.3400, L100.0100, L300.3900, L300.4310, L501.9100 ####[facility] [address] [place], [address] Glucose [Mass/Vol] 72 mg/dL Normal 70-99 [facility] Comment on above: Performed By: #### L 500.2500, L505.5000, L500.3400, L100.0100, L300.3900, L300.4310, L501.9100 ####[facility] [address] [place], [address] Potassium [Moles/Vol] 4.3 mmol/L Normal 3.3-5.1 [facility] Comment on above: Performed By: #### L 500.2500, L505.5000, L500.3400, L100.0100, L300.3900, L300.4310, L501.9100 ####[facility] [address] [place], [place], [id number] Sodium [Moles/Vol] 142 mmol/L Normal 133-145 [facility] Comment on above: Performed By: #### L 500.2500, L505.5000, L500.3400, L100.0100, L300.3900, L300.4310, L501.9100 ####[facility] [address] [place], [place], [id number] Urea nitrogen [Mass/Vol] 27 mg/dL High 4-19 [facility] Comment on above: Performed By: #### L 500.2500, L505.5000, L500.3400, L100.0100, L300.3900, L300.4310, L501.9100 ####[facility] [address] [place], [place], [id number] Basophil percentageOrdered B y: Fawad Cordon on 08-18-2024 Basophils/100 WBC (Bld) 1.3 % High 0-1 [facility] Bilirubin Test strip Ql (U)O rdered By: Fawad Cordon on 08-18-2024 Bilirubin Ql (U) Negative Negative [facility] Bilirubin directOrdered By: Fawad Cordon on 08-18-2024 Bilirubin.direct [Mass/Vol] 0.13 mg/dL 0.00-0.30 [facility] Bilirubin, totalOrdered By: Fawad Cordon on 08-18-2024 Bilirubin [Mass/Vol] 0.34 mg/dL 0.00-1.30 [facility] Blood cultureOrdered By: Gera Cordon on 08-18-2024 Bacteria identified Cx Nom (Bld) No growth in 5 days. [facility] Brain without Contraston Brain without Contrast Normal [facility] CBC W/Diff, Automatedon 05-0 7-2024 Absolute Lymph 0.91 X10 3/uL Normal 0.83-4.51 [facility] Comment on above: Performed By: #### L 500.2500, L505.5000, L500.3400, L100.0100, L300.3900, L300.4310, L501.9100 ####[facility] [address] [place], [address] Absolute Neut 6.6 X10 3/uL Normal 2.0-7.7 [facility] Comment on above: Performed By: #### L 500.2500, L505.5000, L500.3400, L100.0100, L300.3900, L300.4310, L501.9100 ####[facility] [address] [place], [address] Basophils/100 WBC (Bld) 1.3 % High 0-1 [facility] Comment on above: Performed By: #### L 500.2500, L505.5000, L500.3400, L100.0100, L300.3900, L300.4310, L501.9100 ####[facility] [address] [place], [address] Eosinophils/100 WBC (Bld) 0.7 % Normal 0-5 [facility] Comment on above: Performed By: #### L 500.2500, L505.5000, L500.3400, L100.0100, L300.3900, L300.4310, L501.9100 ####[facility] [address] [place], [address] Erythrocyte distribution width (RBC) [Ratio] 13.0 % Normal 11.6-14.6 [facility] Comment on above: Performed By: #### L 500.2500, L505.5000, L500.3400, L100.0100, L300.3900, L300.4310, L501.9100 ####[facility] [address] [place], [address] Hematocrit (Bld) [Volume fraction] 40.0 % Normal 37-47 [facility] Comment on above: Performed By: #### L 500.2500, L505.5000, L500.3400, L100.0100, L300.3900, L300.4310, L501.9100 ####[facility] [address] [place], [address] Hemoglobin (Bld) [Mass/Vol] 13.0 g/dL Normal 12.0-15.0 [facility] Comment on above: Performed By: #### L 500.2500, L505.5000, L500.3400, L100.0100, L300.3900, L300.4310, L501.9100 ####[facility] [address] [place], [address] IG% 0.400 Normal 0.0-0.9 [facility] Comment on above: Result Comment: IG% - Immature Granulocytes (promyelocytes, myelocytes andmetamyelocytes) > 1% indicates that a LEFT SHIFT is Present. Performed By: #### L 500.2500, L505.5000, L500.3400, L100.0100, L300.3900, L300.4310, L501.9100 ####[facility] [address] [place], [address] Lymphocytes/100 WBC (Bld) 10.9 % Low 19-41 [facility] Comment on above: Performed By: #### L 500.2500, L505.5000, L500.3400, L100.0100, L300.3900, L300.4310, L501.9100 ####[facility] [address] [place], [address] MCH (RBC) [Entitic mass] 31.2 pg Normal 27.0-32.0 [facility] Comment on above: Performed By: #### L 500.2500, L505.5000, L500.3400, L100.0100, L300.3900, L300.4310, L501.9100 ####[facility] [address] [place], [address] MCHC (RBC) [Mass/Vol] 32.5 g/dL Normal 32-36 [facility] [facility] Comment on above: Performed By: #### L 500.2500, L505.5000, L500.3400, L100.0100, L300.3900, L300.4310, L501.9100 ####[facility] [address] [place], [address] MCV (RBC) [Entitic vol] 95.9 fL Normal 81-99 [facility] Comment on above: Performed By: #### L 500.2500, L505.5000, L500.3400, L100.0100, L300.3900, L300.4310, L501.9100 ####[facility] [address] [place], [address] Monocytes/100 WBC (Bld) 7.5 % Normal 0-10 [facility] Comment on above: Performed By: #### L 500.2500, L505.5000, L500.3400, L100.0100, L300.3900, L300.4310, L501.9100 ####[facility] [address] [place], [address] Neutrophils/100 WBC (Bld) 79.2 % High 47-70 [facility] Comment on above: Performed By: #### L 500.2500, L505.5000, L500.3400, L100.0100, L300.3900, L300.4310, L501.9100 ####[facility] [address] [place], [address] Nucleated RBC (Bld) [#/Vol] 0 10*3/uL Normal 0-5 [facility] Comment on above: Performed By: #### L 500.2500, L505.5000, L500.3400, L100.0100, L300.3900, L300.4310, L501.9100 ####[facility] [address] [place], [address] Platelet mean volume (Bld) [Entitic vol] 9.1 fL Normal 6.2-12.0 [facility] Comment on above: Performed By: #### L 500.2500, L505.5000, L500.3400, L100.0100, L300.3900, L300.4310, L501.9100 ####[facility] [address] [place], [address] Platelets (Bld) [#/Vol] 254 10*3/uL Normal 150-450 [facility] Comment on above: Performed By: #### L 500.2500, L505.5000, L500.3400, L100.0100, L300.3900, L300.4310, L501.9100 ####[facility] [address] [place], [place], [phone] RBC (Bld) [#/Vol] 4.17 10*6/uL Low 4.2-5.4 [facility] Comment on above: Performed By: #### L 500.2500, L505.5000, L500.3400, L100.0100, L300.3900, L300.4310, L501.9100 ####[facility] [address] [place], [address] RDW SD 45.8 fl High 35.1-43.9 [facility] Comment on above: Performed By: #### L 500.2500, L505.5000, L500.3400, L100.0100, L300.3900, L300.4310, L501.9100 ####[facility] [address] [place], [place], [address] WBC (Bld) [#/Vol] 8.4 10*3/uL Normal 4.4-11.0 [facility] Comment on above: Performed By: #### L 500.2500, L505.5000, L500.3400, L100.0100, L300.3900, L300.4310, L501.9100 ####[facility] [address] [place], [address] Carbon dioxide, total [Moles /volume] in Central venous bloodOrdered By: Fawad Cordon on 08-18-2024 CO2 [Moles/Vol] 25.9 mmol/L 21.0-32.0 [facility] Chloride assayOrdered By: Adiel Cordon on 08-18-2024 Chloride [Moles/Vol] 106 mmol/L 98-108 [facility] Echo Completeon 08-18-2024 Echo Complete Normal [facility] Emergency Department Summary on 08-18-2024 Emergency Department Summary Normal [facility] Eosinophil percentageOrdered By: Fawad Cordon on 08-18-2024 Eosinophils/100 WBC (Bld) 0.7 % 0-5 [facility] Erythrocyte distribution wid th ratioOrdered By: Fawad Cordon on 08-18-2024 Erythrocyte distribution width (RBC) [Ratio] 13.0 % 11.6-14.6 [facility] Erythrocyte distribution wid th standard deviationOrdered By: Fawad Cordon on 08-18-2024 Erythrocyte distribution width (RBC) [Ratio] 45.8 fl High 35.1-43.9 [facility] Glomerular filtration rate ( GFR) estimation/1.73 sq m using serum, plasma, or whole bOrdered By: Fawad Cordon on 08-18-2024 GFR/1.73 sq M.predicted among non-blacks MDRD (S/P/Bld) [Vol rate/Area] 55 mL/min/{1.73_m2} Low >60 [facility] Comment on above: mL/min/1.73m2 CKD-EP I Creatinine Equation (2020) H AND P Exam - [facility] 08-18-2024 H&P Exam - Hospitalist Normal [facility] Hematocrit Auto (Bld) [Volum e fraction]Ordered By: Fawad Cordon on 08-18-2024 Hematocrit (Bld) [Volume fraction] 40.0 % 37-47 [facility] Hemoglobin A1con 08-18-2024 HbA1c (Bld) [Mass fraction] 5.7 % Normal <=5.6 [facility] Comment on above: Result Comment: Norm al < 5.7 % Prediabetic 5.7 - 6.4 % Diabetic >or= 6.5 % Please note range changes. Performed By: #### L 501.9962 ####[facility] [address] [place], [place], [phone] Hemoglobin A1c percentageOrd ered By: Mara Mar on 08-18-2024 HbA1c (Bld) [Mass fraction] 5.7 % <5.7 [facility] Comment on above: Normal < 5.7 % Predi abetic 5.7 - 6.4 % Diabetic >or= 6.5 % Please note range changes. Hemoglobin measurementOrdere d By: Fawad Cordon on 08-18-2024 Hemoglobin (Bld) [Mass/Vol] 13.0 g/dL 12.0-15.0 [facility] Immature granulocytes/100 WB C Auto (Bld)Ordered By: Fawad Cordon on 08-18-2024 Immature granulocytes/100 WBC (Bld) 0.400 % 0.0-0.9 [facility] Comment on above: IG% - Immature Granu locytes (promyelocytes, myelocytes and metamyelocytes) > 1% indicates that a LEFT SHIFT is Present. International normalized rat io (INR) calculationOrdered By: Fawad Cordon on 08-18-2024 INR Coag (Bld) [Relative time] 1.0 {INR} [facility] Ketones Test strip Ql (U)Ord ered By: Fawad Cordon on 08-18-2024 Ketones Ql (U) Negative Negative [facility] Laboratory - Chemistry and C hemistry - challengeOrdered By: Fawad Cordon on 08-18-2024 AST [Catalytic activity/Vol] 36 U/L High <32 [facility] Lactic Acidon 08-18-2024 Lactate [Moles/Vol] mmol/L Normal 0.0-2.0 [facility] Comment on above: Order Comment: Y Performed By: #### L 503.6005 ####[facility] [address] [place], [place], [phone] Lactic acid measurementOrder ed By: Fawad Cordon on 08-18-2024 Lactate [Moles/Vol] mmol/L 0.0-2.0 [facility] Liver Profileon 08-18-2024 Albumin [Mass/Vol] 4.4 g/dL Normal 3.4-4.8 [facility] Comment on above: Performed By: #### L 500.2500, L505.5000, L500.3400, L100.0100, L300.3900, L300.4310, L501.9100 ####[facility] [address] [place], [place], [phone] ALK PHOS 82 U/L Normal 35-104 [facility] Comment on above: Performed By: #### L 500.2500, L505.5000, L500.3400, L100.0100, L300.3900, L300.4310, L501.9100 ####[facility] [address] [place], [place], [phone] ALT [Catalytic activity/Vol] 24 U/L Normal <=34 [facility] Comment on above: Performed By: #### L 500.2500, L505.5000, L500.3400, L100.0100, L300.3900, L300.4310, L501.9100 ####[facility] [address] [place], [address] AST [Catalytic activity/Vol] 36 U/L High <=31 [facility] Comment on above: Performed By: #### L 500.2500, L505.5000, L500.3400, L100.0100, L300.3900, L300.4310, L501.9100 ####[facility] [address] [place], [address] Bilirubin [Mass/Vol] 0.34 mg/dL Normal 0.00-1.30 [facility] Comment on above: Performed By: #### L 500.2500, L505.5000, L500.3400, L100.0100, L300.3900, L300.4310, L501.9100 ####[facility] [address] [place], [address] Bilirubin.direct [Mass/Vol] 0.13 mg/dL Normal 0.00-0.30 [facility] Comment on above: Performed By: #### L 500.2500, L505.5000, L500.3400, L100.0100, L300.3900, L300.4310, L501.9100 ####[facility] [address] [place], [place], [phone] Globulin (S) [Mass/Vol] 3.2 g/dL Normal 2.2-4.2 [facility] Comment on above: Performed By: #### L 500.2500, L505.5000, L500.3400, L100.0100, L300.3900, L300.4310, L501.9100 ####[facility] [address] [place], [place], [phone]) T PROT 7.6 g/dL Normal 5.9-8.4 [facility] Comment on above: Performed By: #### L 500.2500, L505.5000, L500.3400, L100.0100, L300.3900, L300.4310, L501.9100 ####[facility] [address] [place], [address] MCV (mean corpuscular volume ) determinationOrdered By: Fawad Cordon on 08-18-2024 MCV (RBC) [Entitic vol] 95.9 fL 81-99 [facility] Magnetic resonance imaging r eportOrdered By: Eliezer Kasper on 08-18-2024 Study report [facility] Imaging [place] [address] Brain without Contrast MR#: [id number] Acct: [id number] Name: BEHZAD HAY Rep #: [id number] : 1940 F 84 From: Glory Kasper MD PCP: Tasha Deutsch, OUTREACH COORDINATOR Status: ADM JENNY Study:Brain without Contrast Date of Exam: 08/18/24 Exam# [id number] Ordering Dr: Eliana Mar DO PROCEDURE: BRAIN WITHOUT CONTRAST N/A REASON FOR EXAM: STROKE TECHNIQUE: Noncontrast brain MRI. Multiplanar and multisequence images were obtained. COMPARISON: CT brain and CTA head and neck 08/18/2024 FINDINGS: BRAIN/PARENCHYMA: Moderate sized focus of restricted diffusion left frontoparietal lobe, involving the central and postcentral gyri, with ADC correlate compatible with acute infarcts. There is increased T2/FLAIR hyperintensity within this region compatible vasogenic edema, with effacement of the surrounding sulci and gyri. No significant mass effect or midline shift otherwise. There are subcortical and periventricular white matter FLAIR hyperintensities, likely related to chronic microvascular ischemic disease. EXTRA-AXIAL SPACES: No abnormal extra-axial fluid collections. Patent basal cisterns and foramen magnum. VENTRICLES: Moderate generalized volume loss with concordant ventricular enlargement. . SCALP SOFT TISSUES & CALVARIUM: No significant abnormality. VISUALIZED SINUSES & MASTOIDS: No air-fluid levels in the paranasal sinuses. Themastoid air cells are clear. ARTERIAL FLOW VOIDS: Preserved major arterial flow voids indicating gross patency. MRI/Brain without Contrast IMPRESSION: Acute infarct left frontoparietal lobe as described above, compatible with and MCA distribution infarct. Local mass effect without midline shift. Chronic microvascular ischemia and involutional changes. Red Alert: The critical information above was relayed directly by me by telephone to JESIKA Paulino on 08/18/2024 at 6:39 pm with readback verification. Reading Location: [facility] CC: GARFIELD Deutsch; Dr. Mara Mar, DO ~ Patient Carrier: Signed [facility] Mean corpuscular hemoglobin (MCH) determinationOrdered By: Fawad Cordon on 08-18-2024 MCH (RBC) [Entitic mass] 31.2 pg 27.0-32.0 [facility] Mean corpuscular hemoglobin concentration (MCHC) determinationOrdered By: Fawad Cordon on 08-18-2024 MCHC (RBC) [Mass/Vol] 32.5 g/dL 32-36 [facility] Mean platelet volume determi nationOrdered By: Fawad Cordon on 08-18-2024 Platelet mean volume (Bld) [Entitic vol] 9.1 fL 6.2-12.0 [facility] Microscopic analysis of urin e for red blood cells (RBC)Ordered By: Fawad Cordon on 08-18-2024 Microscopic analysis of urine for red blood cells (RBC) 0 SEEN /hpf 0-5 [facility] Monocyte percentageOrdered B y: Fawad Cordon on 08-18-2024 Monocytes/100 WBC (Bld) 7.5 % 0-10 [facility] Mucus LM Ql (Urine sed)Order ed By: Fawad Cordon on 08-18-2024 Mucus Ql (Urine sed) 0 SEEN /hpf [facility] Neutrophil percentageOrdered By: Fawad Cordon on 08-18-2024 Neutrophils/100 WBC (Bld) 79.2 % High 47-70 [facility] Nitrite Test strip Ql (U)Ord ered By: Fawad Cordon on 08-18-2024 Nitrite Ql (U) Positive High Negative [facility] No Panel InformationOrdered By: Fawad Cordon on 08-18-2024 Urine Buprenorphine Qualitative Negative < 200 ng/mL [facility] Urine Oxycodone Screen Negative < 100 ng/mL [facility] Nucleated red blood cell per centageOrdered By: Fawad Cordon on 08-18-2024 Nucleated RBC/100 WBC (Bld) [Ratio] 0 % 0-5 [facility] Partial Thromboplast Timeon 08-18-2024 aPTT Coag (Bld) [Time] 24.6 s Normal 24.1-36.2 [facility] Comment on above: Performed By: #### L 500.2500, L505.5000, L500.3400, L100.0100, L300.3900, L300.4310, L501.9100 ####[facility] [address] [place], [place], [phone] Platelet countOrdered By: Adiel Cordon on 08-18-2024 Platelets (Bld) [#/Vol] 254 10*3/uL 150-450 [facility] Potassium measurement (mass/ volume)Ordered By: Fawad Cordon on 08-18-2024 Potassium (Unsp spec) [Mass/Vol] 4.3 mmol/L 3.3-5.1 [facility] Protein Test strip Ql (U)Ord ered By: Fawad Cordon on 08-18-2024 Protein Ql (U) 30 mg/dl High Negative [facility] Prothrombin Time w/INRon INR Coag (PPP) [Relative time] 1.0 {INR} Normal [facility] Comment on above: Performed By: #### L 500.2500, L505.5000, L500.3400, L100.0100, L300.3900, L300.4310, L501.9100 ####[facility] [address] [place], [place], [phone] PT Coag (PPP) [Time] 13.1 s Normal 11.7-14.9 [facility] Comment on above: Performed By: #### L 500.2500, L505.5000, L500.3400, L100.0100, L300.3900, L300.4310, L501.9100 ####[facility] [address] [place], [address] Prothrombin timeOrdered By: Fawad Cordon on 08-18-2024 PT Coag (PPP) [Time] 13.1 s 11.7-14.9 [facility] Quantitative urine opiates m easurementOrdered By: Fawad Cordon on 08-18-2024 Opiates Ql (U) Negative < 300 ng/mL [facility] RBC Auto (Bld) [#/Vol]Ordere d By: Fawad Cordon on 08-18-2024 RBC (Bld) [#/Vol] 4.17 10*6/uL Low 4.2-5.4 [facility] STROKE CTA Head AND Neck W/C onon 08-18-2024 STROKE CTA Head AND Neck W/Con Normal [facility] Screening urine fentanyl reyes surementOrdered By: Fawad Cordon on 08-18-2024 fentaNYL Screen Ql (U) Negative [facility] Serum creatinine measurement (mass/volume)Ordered By: Fawad Cordon on 08-18-2024 Creatinine [Mass/Vol] 1.00 mg/dL 0.70-1.20 [facility] Serum globulin measurementOr dered By: Fawad Cordon on 08-18-2024 Globulin (S) [Mass/Vol] 3.2 g/dL 2.2-4.2 [facility] Serum glucose measurement (m ass/volume)Ordered By: Fawad Cordon on 08-18-2024 Glucose [Mass/Vol] 72 mg/dL 70-99 [facility] Serum or plasma alanine tierney otransferase (ALT) measurementOrdered By: Fawad Cordon on 08-18-2024 ALT [Catalytic activity/Vol] 24 U/L <35 [facility] Serum or plasma albumin camilo urement (mass/volume)Ordered By: Fawad Cordon on 08-18-2024 Albumin [Mass/Vol] 4.4 g/dL 3.4-4.8 [facility] Serum or plasma alkaline jordan sphatase measurementOrdered By: Fawad Cordon on 08-18-2024 ALP [Catalytic activity/Vol] 82 U/L 35-104 [facility] Serum or plasma calcium camilo urement (mass/volume)Ordered By: Fawad Cordon on 08-18-2024 Calcium [Mass/Vol] 10.0 mg/dL 7.6-11.0 [facility] Serum or plasma ethanol camilo urement (mass/volume)Ordered By: Fawad Cordon on 08-18-2024 Ethanol [Mass/Vol] mg/dL <10.1 [facility] Comment on above: This test is for med ical purposes only. The legal definition of intoxication varies according to local law. Serum or plasma urea nitroge n measurement (mass/volume)Ordered By: Fawad Cordon on 08-18-2024 Urea nitrogen [Mass/Vol] 27 mg/dL High 4-19 [facility] Sodium levelOrdered By: Ernesto Cordon on 08-18-2024 Sodium [Moles/Vol] 142 mmol/L 133-145 [facility] Squamous epithelial cells de tection in urine sediment by light microscopyOrdered By: Fawad Cordon on 08-18-2024 Epithelial cells.squamous LM Ql (Urine sed) 0 SEEN /hpf - [facility] Total proteinOrdered By: Gera Cordon on 08-18-2024 Protein [Mass/Vol] 7.6 g/dL 5.9-8.4 [facility] Urinalysis, Completeon 08-18 BACTERIA 3+ /hpf Normal None Seen [facility] Comment on above: Order Comment: CLEAN CATCH Performed By: #### L 400.0001 ####[facility] [address] [place], [place], [phone] WBC 10-25 SEEN Normal [address] [place] [address] Comment on above: Order Comment: CLEAN CATCH Performed By: #### L 400.0001 ####[facility] [address] [place], [address] EPI,SQUAMOUS 0 SEEN Normal - [facility] Comment on above: Order Comment: CLEAN CATCH Performed By: #### L 400.0001 ####[facility] [address] [place], [address] Mucus Ql (Urine sed) 0 SEEN Normal [facility] Comment on above: Order Comment: CLEAN CATCH Performed By: #### L 400.0001 ####[facility] [address] [place], [address] RBC 0 SEEN Normal 0-5 [facility] Comment on above: Order Comment: CLEAN CATCH Performed By: #### L 400.0001 ####[facility] [address] [place], [place], [phone] Urine Drug Screen (VISTA)on 08-18-2024 AMPHETAMINES Negative Normal <1000 ng/mL [facility] Comment on above: Performed By: #### L 500.2500, L505.5000, L500.3400, L100.0100, L300.3900, L300.4310, L501.9100 ####[facility] [address] [place], [phone] BARBITIURATES Negative Normal < 200 ng/mL [facility] Comment on above: Performed By: #### L 500.2500, L505.5000, L500.3400, L100.0100, L300.3900, L300.4310, L501.9100 ####[facility] [address] [place], [place], [phone] BENZODIAZIPINE Negative Normal < 200 ng/mL [facility] Comment on above: Performed By: #### L 500.2500, L505.5000, L500.3400, L100.0100, L300.3900, L300.4310, L501.9100 ####[facility] [address] [place], [phone] BUP Ur Drug Scr Negative Normal < 200 ng/mL [facility] Comment on above: Performed By: #### L 500.2500, L505.5000, L500.3400, L100.0100, L300.3900, L300.4310, L501.9100 ####[facility] [address] [place], [phone] COCAINE Negative Normal < 300 ng/mL [facility] Comment on above: Performed By: #### L 500.2500, L505.5000, L500.3400, L100.0100, L300.3900, L300.4310, L501.9100 ####[facility] [address] [place], [phone] Fentanyl Negative Normal [facility] Comment on above: Performed By: #### L 500.2500, L505.5000, L500.3400, L100.0100, L300.3900, L300.4310, L501.9100 ####[facility] [address] [place] [address] METHADONE Negative Normal < 300 ng/mL [facility] Comment on above: Performed By: #### L 500.2500, L505.5000, L500.3400, L100.0100, L300.3900, L300.4310, L501.9100 ####[facility] [address] [place] [address] OPIATES Negative Normal < 300 ng/mL [facility] Comment on above: Performed By: #### L 500.2500, L505.5000, L500.3400, L100.0100, L300.3900, L300.4310, L501.9100 ####[facility] [address] [place] [address] OXYCODONE Negative Normal < 100 ng/mL [facility] Comment on above: Performed By: #### L 500.2500, L505.5000, L500.3400, L100.0100, L300.3900, L300.4310, L501.9100 ####[facility] [address] [place] [address] PCP Negative Normal < 25 ng/mL [facility] Comment on above: Performed By: #### L 500.2500, L505.5000, L500.3400, L100.0100, L300.3900, L300.4310, L501.9100 ####[facility] [address] [place] [address] THC Negative Normal < 50 ng/mL [facility] Comment on above: Performed By: #### L 500.2500, L505.5000, L500.3400, L100.0100, L300.3900, L300.4310, L501.9100 ####[facility] [address] [place], [address] Urine benzodiazepine levelOr dered By: Fawad Cordon on 08-18-2024 Benzodiazepines Ql (U) Negative < 200 ng/mL [facility] Urine clarityOrdered By: Gera Cordon on 08-18-2024 Clarity (U) Sl. Cloudy Clear [facility] Urine cocaine levelOrdered B y: Fawad Cordon on 08-18-2024 Cocaine Ql (U) Negative < 300 ng/mL [facility] Urine color determinationOrd ered By: Fawad Cordon on 08-18-2024 Color (U) Yellow Yellow [facility] Urine cultureOrdered By: Gera Cordon on 08-18-2024 Bacteria identified Cx Nom (U) Escherichia coli Abnormal [facility] Urine gkwii-2-lijlghhbjzzrkd abinol (THC) measurementOrdered By: Fawad Cordon on 08-18-2024 Cannabinoids Screen Ql (U) Negative < 50 ng/mL [facility] Urine glucose detectionOrder ed By: Fawad Cordon on 08-18-2024 Glucose Ql (U) Normal mg/dl Normal [facility] Urine leukocyte esterase det ection by dipstickOrdered By: Fawad Cordon on 08-18-2024 Leukocyte esterase Test strip Ql (U) 500 /ul High Negative [facility] Urine pHOrdered By: Fawad espinoza on 08-18-2024 pH (U) 7.0 [pH] 5.0 - 8.0 [facility] Urine phencyclidine (PCP) de tectionOrdered By: Fawad Cordon on 08-18-2024 Phencyclidine Ql (U) Negative < 25 ng/mL [facility] Urine sediment bacteria coun t by microscopy (number/high power field)Ordered By: Fawad Cordon on 08-18-2024 Bacteria LM.HPF (Urine sed) [#/Area] 3 /[HPF] None Seen [facility] Urine specific gravity measu rementOrdered By: Fawad Cordon on 08-18-2024 Specific gravity (U) [Rel density] 1.005 1.002-1.03 0 [facility] Urine urobilinogen measureme ntOrdered By: Fawad Cordon on 08-18-2024 Urobilinogen Ql (U) Normal mg/dl Normal [facility] White blood cell (WBC) count Ordered By: Fawad Cordon on 08-18-2024 WBC (Bld) [#/Vol] 8.4 10*3/uL 4.4-11.0 [facility] White blood cell countOrdere d By: Fawad Cordon on 08-18-2024 White blood cell count 10-25 SEEN /hpf 0-5 [facility] 12 Lead EKGon 08-16-2024 12 Lead EKG Normal [facility] Absolute lymphocyte countOrd ered By: Ricki Reyes on 08-16-2024 Lymphocytes Auto (Unsp spec) [#/Vol] 1.46 10*3/uL 0.83-4.51 [facility] Absolute neutrophil countOrd ered By: Ricki Reyes on 08-16-2024 Neutrophils (Bld) [#/Vol] 4.0 10*3/uL 2.0-7.7 [facility] Anion gap in Serum or Plasma Ordered By: Ricki Reyes on 08-16-2024 Anion gap [Moles/Vol] 10 mmol/L 5-15 [facility] Automated lymphocyte count a s percentage of total leukocytesOrdered By: Ricki Reyes on 08-16-2024 Lymphocytes/100 WBC Auto (Unsp spec) 23.7 % 19-41 [facility] BUN/creatinine ratioOrdered By: Ricki Reyes on 08-16-2024 Urea nitrogen/Creatinine [Mass ratio] 17.0 mg/mg 10-20 [facility] Basophil percentageOrdered B y: Ricki Reyes on 08-16-2024 Basophils/100 WBC (Bld) 1.5 % High 0-1 [facility] Bilirubin Test strip Ql (U)O rdered By: Ricki Reyes on 08-16-2024 Bilirubin Ql (U) Negative Negative [facility] Bilirubin, totalOrdered By: Ricki Reyes on 08-16-2024 Bilirubin [Mass/Vol] 0.20 mg/dL 0.00-1.30 [facility] Brain/Head without Contrasto n 08-16-2024 Brain/Head without Contrast Normal [facility] CBC W/Diff, Automatedon 05 Absolute Lymph 1.46 X10 3/uL Normal 0.83-4.51 [facility] Comment on above: Performed By: #### L 100.0100, L500.4050 ####[facility] [address] [place], [address] Absolute Neut 4.0 X10 3/uL Normal 2.0-7.7 [facility] Comment on above: Performed By: #### L 100.0100, L500.4050 ####[facility] [address] [place], [address] Basophils/100 WBC (Bld) 1.5 % High 0-1 [facility] Comment on above: Performed By: #### L 100.0100, L500.4050 ####[facility] [address] [place], [address] Eosinophils/100 WBC (Bld) 1.5 % Normal 0-5 [facility] Comment on above: Performed By: #### L 100.0100, L500.4050 ####[facility] [address] [place], [address] Erythrocyte distribution width (RBC) [Ratio] 12.9 % Normal 11.6-14.6 [facility] Comment on above: Performed By: #### L 100.0100, L500.4050 ####[facility] [address] [place], [address] Hematocrit (Bld) [Volume fraction] 40.1 % Normal 37-47 [facility] Comment on above: Performed By: #### L 100.0100, L500.4050 ####[facility] [address] [place], [address] Hemoglobin (Bld) [Mass/Vol] 13.0 g/dL Normal 12.0-15.0 [facility] Comment on above: Performed By: #### L 100.0100, L500.4050 ####[facility] [address] [place], [address] IG% 0.200 Normal 0.0-0.9 [facility] Comment on above: Result Comment: IG% - Immature Granulocytes (promyelocytes, myelocytes andmetamyelocytes) > 1% indicates that a LEFT SHIFT is Present. Performed By: #### L 100.0100, L500.4050 ####[facility] [address] [place], [address] Lymphocytes/100 WBC (Bld) 23.7 % Normal 19-41 [facility] Comment on above: Performed By: #### L 100.0100, L500.4050 ####[facility] [address] [place], [address] MCH (RBC) [Entitic mass] 31.3 pg Normal 27.0-32.0 [facility] Comment on above: Performed By: #### L 100.0100, L500.4050 ####[facility] [address] [place], [address] MCHC (RBC) [Mass/Vol] 32.4 g/dL Normal 32-36 [facility] Comment on above: Performed By: #### L 100.0100, L500.4050 ####[facility] [address] [place], [address] MCV (RBC) [Entitic vol] 96.4 fL Normal 81-99 [facility] Comment on above: Performed By: #### L 100.0100, L500.4050 ####[facility] [address] [place], [address] Monocytes/100 WBC (Bld) 8.9 % Normal 0-10 [facility] Comment on above: Performed By: #### L 100.0100, L500.4050 ####[facility] [address] [place], [address] Neutrophils/100 WBC (Bld) 64.2 % Normal 47-70 [facility] Comment on above: Performed By: #### L 100.0100, L500.4050 ####[facility] [address] [place], [address] Nucleated RBC (Bld) [#/Vol] 0 10*3/uL Normal 0-5 [facility] Comment on above: Performed By: #### L 100.0100, L500.4050 ####[facility] [address] [place], [address] Platelet mean volume (Bld) [Entitic vol] 9.0 fL Normal 6.2-12.0 [facility] Comment on above: Performed By: #### L 100.0100, L500.4050 ####[facility] [address] [place], [address] Platelets (Bld) [#/Vol] 277 10*3/uL Normal 150-450 [facility] Comment on above: Performed By: #### L 100.0100, L500.4050 ####[facility] [address] [place], [address] RBC (Bld) [#/Vol] 4.16 10*6/uL Low 4.2-5.4 [facility] Comment on above: Performed By: #### L 100.0100, L500.4050 ####[facility] [address] [place], [address] RDW SD 45.6 fl High 35.1-43.9 [facility] Comment on above: Performed By: #### L 100.0100, L500.4050 ####[facility] [address] [place], [address] WBC (Bld) [#/Vol] 6.2 10*3/uL Normal 4.4-11.0 [facility] Comment on above: Performed By: #### L 100.0100, L500.4050 ####[facility] [address] [place], [address] Carbon dioxide, total [Moles /volume] in Central venous bloodOrdered By: Ricki Reyes on 08-16-2024 CO2 [Moles/Vol] 26.3 mmol/L 21.0-32.0 [facility] Chest PA and Lateralon 08-16 Chest PA and Lateral Normal [facility] Chloride assayOrdered By: Madhu Reyes on 08-16-2024 Chloride [Moles/Vol] 105 mmol/L 98-108 [facility] Comprehensive Metabolic Prof ilon 08-16-2024 Albumin [Mass/Vol] 4.2 g/dL Normal 3.4-4.8 [facility] Comment on above: Performed By: #### L 100.0100, L500.4050 ####[facility] [address] [place], [address] Albumin/Globulin [Mass ratio] 1.4 {ratio} Normal 0.9-2.4 [facility] Comment on above: Performed By: #### L 100.0100, L500.4050 ####[facility] [address] [place], [address] ALK PHOS 80 U/L Normal 35-104 [facility] Comment on above: Performed By: #### L 100.0100, L500.4050 ####[facility] [address] [place], [address] ALT [Catalytic activity/Vol] 21 U/L Normal <=34 [facility] Comment on above: Performed By: #### L 100.0100, L500.4050 ####[facility] [address] [place], [address] AST [Catalytic activity/Vol] 29 U/L Normal <=31 [facility] Comment on above: Performed By: #### L 100.0100, L500.4050 ####[facility] [address] [place], [address] Bilirubin [Mass/Vol] 0.20 mg/dL Normal 0.00-1.30 [facility] Comment on above: Performed By: #### L 100.0100, L500.4050 ####[facility] [address] [place], [address] BUN/CRE 17.0 RATIO Normal 10-20 [facility] Comment on above: Performed By: #### L 100.0100, L500.4050 ####[facility] [address] [place], [address] Calcium [Mass/Vol] 9.9 mg/dL Normal 7.6-11.0 [facility] Comment on above: Performed By: #### L 100.0100, L500.4050 ####[facility] [address] [place], [address] Chloride [Moles/Vol] 105 mmol/L Normal 98-108 [facility] Comment on above: Performed By: #### L 100.0100, L500.4050 ####[facility] [address] [place], [address] CO2 [Moles/Vol] 26.3 mmol/L Normal 21.0-32.0 [facility] Comment on above: Performed By: #### L 100.0100, L500.4050 ####[facility] [address] [place], [address] Creatinine [Mass/Vol] 1.00 mg/dL Normal 0.70-1.20 [facility] Comment on above: Performed By: #### L 100.0100, L500.4050 ####[facility] [address] [place], [address] ECRCL 29.01 ml/min Low 50-250 [facility] Comment on above: Performed By: #### L 100.0100, L500.4050 ####[facility] [address] [place], [address] GAP 10 Normal 5-15 [facility] Comment on above: Performed By: #### L 100.0100, L500.4050 ####[facility] [address] [place], [address] GFR/1.73 sq M.predicted among non-blacks MDRD (S/P/Bld) [Vol rate/Area] 55 mL/min/{1.73_m2} Low >60 [facility] Comment on above: Result Comment: mL/m in/1.73m2 CKD-EPI Creatinine Equation (2020) Performed By: #### L 100.0100, L500.4050 ####[facility] [address] [place], [address] Globulin (S) [Mass/Vol] 3.0 g/dL Normal 2.2-4.2 [facility] Comment on above: Performed By: #### L 100.0100, L500.4050 ####[facility] [address] [place], [address] Glucose [Mass/Vol] 106 mg/dL High 70-99 [facility] Comment on above: Performed By: #### L 100.0100, L500.4050 ####[facility] [address] [place], [address] Potassium [Moles/Vol] 4.5 mmol/L Normal 3.3-5.1 [facility] Comment on above: Performed By: #### L 100.0100, L500.4050 ####[facility] [address] [place], [address] Sodium [Moles/Vol] 141 mmol/L Normal 133-145 [facility] Comment on above: Performed By: #### L 100.0100, L500.4050 ####[facility] [address] [place], [address] T PROT 7.2 g/dL Normal 5.9-8.4 [facility] Comment on above: Performed By: #### L 100.0100, L500.4050 ####[facility] [address] [place], [address] Urea nitrogen [Mass/Vol] 17 mg/dL Normal 4-19 [facility] Comment on above: Performed By: #### L 100.0100, L500.4050 ####[facility] [address] [place], [address] Emergency Department Summary on 08-16-2024 Emergency Department Summary Normal [facility] Eosinophil percentageOrdered By: Ricki Reyes on 08-16-2024 Eosinophils/100 WBC (Bld) 1.5 % 0-5 [facility] Erythrocyte distribution wid th ratioOrdered By: Ricki Reyes on 08-16-2024 Erythrocyte distribution width (RBC) [Ratio] 12.9 % 11.6-14.6 [facility] Erythrocyte distribution wid th standard deviationOrdered By: Ricki Reyes on 08-16-2024 Erythrocyte distribution width (RBC) [Ratio] 45.6 fl High 35.1-43.9 [facility] Glomerular filtration rate ( GFR) estimation/1.73 sq m using serum, plasma, or whole bOrdered By: Ricki Reyes on 08-16-2024 GFR/1.73 sq M.predicted among non-blacks MDRD (S/P/Bld) [Vol rate/Area] 55 mL/min/{1.73_m2} Low >60 [facility] Comment on above: mL/min/1.73m2 CKD-EP I Creatinine Equation (2020) Hematocrit Auto (Bld) [Volum e fraction]Ordered By: Ricki Reyes on 08-16-2024 Hematocrit (Bld) [Volume fraction] 40.1 % 37-47 [facility] Hemoglobin measurementOrdere d By: Ricki Reyes on 08-16-2024 Hemoglobin (Bld) [Mass/Vol] 13.0 g/dL 12.0-15.0 [facility] Immature granulocytes/100 WB C Auto (Bld)Ordered By: Ricki Reyes on 08-16-2024 Immature granulocytes/100 WBC (Bld) 0.200 % 0.0-0.9 [facility] Comment on above: IG% - Immature Granu locytes (promyelocytes, myelocytes and metamyelocytes) > 1% indicates that a LEFT SHIFT is Present. Ketones Test strip Ql (U)Ord ered By: Ricki Reyes on 08-16-2024 Ketones Ql (U) Negative Negative [facility] Laboratory - Chemistry and C hemistry - challengeOrdered By: Ricki Reyes on 08-16-2024 AST [Catalytic activity/Vol] 29 U/L <32 [facility] MCV (mean corpuscular volume ) determinationOrdered By: Ricki Reyes on 08-16-2024 MCV (RBC) [Entitic vol] 96.4 fL 81-99 [facility] Mean corpuscular hemoglobin (MCH) determinationOrdered By: Ricki Reyes on 08-16-2024 MCH (RBC) [Entitic mass] 31.3 pg 27.0-32.0 [facility] Mean corpuscular hemoglobin concentration (MCHC) determinationOrdered By: Ricki Reyes on 08-16-2024 MCHC (RBC) [Mass/Vol] 32.4 g/dL 32-36 [facility] Mean platelet volume determi nationOrdered By: Ricki Reyes on 08-16-2024 Platelet mean volume (Bld) [Entitic vol] 9.0 fL 6.2-12.0 [facility] Microscopic analysis of urin e for red blood cells (RBC)Ordered By: Ricki Reyes on 08-16-2024 Microscopic analysis of urine for red blood cells (RBC) 0-5 SEEN /hpf 0-5 [facility] Monocyte percentageOrdered B y: Ricki Reyes on 08-16-2024 Monocytes/100 WBC (Bld) 8.9 % 0-10 [facility] Mucus LM Ql (Urine sed)Order ed By: Ricki Reyes on 08-16-2024 Mucus Ql (Urine sed) 0 SEEN /hpf [facility] Neutrophil percentageOrdered By: Ricki Reyes on 08-16-2024 Neutrophils/100 WBC (Bld) 64.2 % 47-70 [facility] Nitrite Test strip Ql (U)Ord ered By: Ricki Reyes on 08-16-2024 Nitrite Ql (U) Negative Negative [facility] Nucleated red blood cell per centageOrdered By: Ricki Reyes on 08-16-2024 Nucleated RBC/100 WBC (Bld) [Ratio] 0 % 0-5 [facility] Platelet countOrdered By: Madhu Reyes on 08-16-2024 Platelets (Bld) [#/Vol] 277 10*3/uL 150-450 [facility] Potassium measurement (mass/ volume)Ordered By: Ricki Reyes on 08-16-2024 Potassium (Unsp spec) [Mass/Vol] 4.5 mmol/L 3.3-5.1 [facility] Protein Test strip Ql (U)Ord ered By: Ricki Reyes on 08-16-2024 Protein Ql (U) 15 mg/dl High Negative [facility] RBC Auto (Bld) [#/Vol]Ordere d By: Ricki Reyes on 08-16-2024 RBC (Bld) [#/Vol] 4.16 10*6/uL Low 4.2-5.4 [facility] Serum creatinine measurement (mass/volume)Ordered By: Ricki Reyes on 08-16-2024 Creatinine [Mass/Vol] 1.00 mg/dL 0.70-1.20 [facility] Serum globulin measurementOr dered By: Ricki Reyes on 08-16-2024 Globulin (S) [Mass/Vol] 3.0 g/dL 2.2-4.2 [facility] Serum glucose measurement (m ass/volume)Ordered By: Ricki Reyes on 08-16-2024 Glucose [Mass/Vol] 106 mg/dL High 70-99 [facility] Serum or plasma alanine tierney otransferase (ALT) measurementOrdered By: Ricki Reyes on 08-16-2024 ALT [Catalytic activity/Vol] 21 U/L <35 [facility] Serum or plasma albumin camilo urement (mass/volume)Ordered By: Ricki Reyes on 08-16-2024 Albumin [Mass/Vol] 4.2 g/dL 3.4-4.8 [facility] Serum or plasma albumin/glob ulin mass ratioOrdered By: Ricki Reyes on 08-16-2024 Albumin/Globulin [Mass ratio] 1.4 {ratio} 0.9-2.4 [facility] Serum or plasma alkaline jordan sphatase measurementOrdered By: Ricki Reyes on 08-16-2024 ALP [Catalytic activity/Vol] 80 U/L 35-104 [facility] Serum or plasma calcium camilo urement (mass/volume)Ordered By: Ricki Reyes on 08-16-2024 Calcium [Mass/Vol] 9.9 mg/dL 7.6-11.0 [facility] Serum or plasma urea nitroge n measurement (mass/volume)Ordered By: Ricki Reyes on 08-16-2024 Urea nitrogen [Mass/Vol] 17 mg/dL 4-19 [facility] Sodium levelOrdered By: Ricki Reyes on 08-16-2024 Sodium [Moles/Vol] 141 mmol/L 133-145 [facility] Squamous epithelial cells de tection in urine sediment by light microscopyOrdered By: Ricki Reyes on 08-16-2024 Epithelial cells.squamous LM Ql (Urine sed) 0-5 SEEN /hpf 5-10 [facility] Total proteinOrdered By: Juliocesar Reyes on 08-16-2024 Protein [Mass/Vol] 7.2 g/dL 5.9-8.4 [facility] Urinalysis, Completeon 08-16 EPI,SQUAMOUS 0-5 SEEN Normal 5-10 [facility] Comment on above: Order Comment: CLEAN CATCH Performed By: #### L 400.0001 ####[facility] [address] [place], [address] RBC 0-5 SEEN Normal 0-5 [facility] Comment on above: Order Comment: CLEAN CATCH Performed By: #### L 400.0001 ####[facility] [address] [place], [place], [id number] WBC 0-5 SEEN Normal 0-5 [facility] Comment on above: Order Comment: CLEAN CATCH Performed By: #### L 400.0001 ####[facility] [address] [place], [address] BACTERIA 0 SEEN Normal None Seen [facility] Comment on above: Order Comment: CLEAN CATCH Performed By: #### L 400.0001 ####[facility] [address] [place], [address] Mucus Ql (Urine sed) 0 SEEN Normal [facility] Comment on above: Order Comment: CLEAN CATCH Performed By: #### L 400.0001 ####[facility] [address] [place], [place], [id number] Urine clarityOrdered By: Juliocesar Reyes on 08-16-2024 Clarity (U) Clear Clear [facility] Urine color determinationOrd ered By: Ricki Reyes on 08-16-2024 Color (U) Straw Yellow [facility] Urine glucose detectionOrder ed By: Ricki Reyes on 08-16-2024 Glucose Ql (U) Normal mg/dl Normal [facility] Urine leukocyte esterase det ection by dipstickOrdered By: Ricki Reyes on 08-16-2024 Leukocyte esterase Test strip Ql (U) 25 /ul High Negative [facility] Urine pHOrdered By: Ricki marcano on 08-16-2024 pH (U) 8.0 [pH] 5.0 - 8.0 [facility] Urine sediment bacteria coun t by microscopy (number/high power field)Ordered By: Ricki Reyes on 08-16-2024 Bacteria LM.HPF (Urine sed) [#/Area] 0 /[HPF] None Seen [facility] Urine specific gravity measu rementOrdered By: Ricki Reyes on 08-16-2024 Specific gravity (U) [Rel density] 1.010 1.002-1.03 0 [facility] Urine urobilinogen measureme ntOrdered By: Ricki Reyes on 08-16-2024 Urobilinogen Ql (U) Normal mg/dl Normal [facility] White blood cell (WBC) count Ordered By: Ricki Reyes on 08-16-2024 WBC (Bld) [#/Vol] 6.2 10*3/uL 4.4-11.0 [facility] White blood cell countOrdere d By: Ricki Reyes on 08-16-2024 White blood cell count 0-5 SEEN /hpf 0-5 [facility] 25(OH)D3 SerPl-mCncon 2024 25-hydroxyvitamin D3 [Mass/Vol] 60.1 ng/mL Normal 31.0-80.0 [facility] Comment on above: Order Comment: Speci men Type: BLOOD SPECIMENOrdering Facility: [facility] Address: [address] [place] [address] Result Comment: Clas sification of 25 [place] Vitamin D status: Deficiency/Insufficiency: < or = 30 ng/ml. Sufficiency/Optimal Levels: 31-80 ng/mL Toxicity: > 100 ng/mL. Test performed by chemiluminescent immunoassay. Performed By: #### 1 989-3 ####[facility] LABIA [id number] [place] [address] [place] CBC W Auto Differential pane l (Bld)on 04-26-2024 Basophils (Bld) [#/Vol] 0.08 10*3/uL Normal <0.11 [facility] Comment on above: Order Comment: Speci men Type: BLOOD SPECIMENOrdering Facility: [facility] Address: [address] [place] [address] Performed By: #### 5 7021-8 ####[facility] LABCLIA [id number] [place] [address] [place] Basophils/100 WBC (Bld) 1.4 % Normal [facility] Comment on above: Order Comment: Speci men Type: BLOOD SPECIMENOrdering Facility: [facility] Address: [address] [place] [address] Performed By: #### 5 7021-8 ####[facility] LABIA [id number] [place] [address] [place] Differential cell count method Nom (Bld) Auto Normal [facility] Comment on above: Order Comment: Speci men Type: BLOOD SPECIMENOrdering Facility: [facility] Address: [address] [place] [address] Performed By: #### 5 7021-8 ####[facility] LABCLIA [id number] [place] [address] [place] Eosinophils (Bld) [#/Vol] 0.18 10*3/uL Normal <0.46 [facility] Comment on above: Order Comment: Speci men Type: BLOOD SPECIMENOrdering Facility: [facility] Address: [address] [place] [address] Performed By: #### 5 7021-8 ####[facility] LABCLIA [id number] [place] [address] [place] Eosinophils/100 WBC (Bld) 3.2 % Normal [facility] Comment on above: Order Comment: Speci men Type: BLOOD SPECIMENOrdering Facility: [facility] Address: [address] [place] [address] Performed By: #### 5 7021-8 ####[facility] LABCLIA [id number] [place] [address] [place] Erythrocyte distribution width (RBC) [Ratio] 12.7 % Normal 11.5-15.0 [facility] Comment on above: Order Comment: Speci men Type: BLOOD SPECIMENOrdering Facility: [facility] Address: [address] [place] [address] Performed By: #### 5 7021-8 ####[facility] LABCLIA [id number] [place] [address] [place] Hematocrit (Bld) [Volume fraction] 40.4 % Normal 36.0-46.0 [facility] Comment on above: Order Comment: Speci men Type: BLOOD SPECIMENOrdering Facility: [facility] Address: [address] [place] [address] Performed By: #### 5 7021-8 ####[facility] LABCLIA [id number] [place] [address] [place] Hemoglobin (Bld) [Mass/Vol] 12.6 g/dL Normal 11.5-15.5 [facility] Comment on above: Order Comment: Speci men Type: BLOOD SPECIMENOrdering Facility: [facility] Address: [address] [place] [address] Performed By: #### 5 7021-8 ####[facility] LABCLIA [id number] [place] [address] [place] Immature granulocytes (Bld) [#/Vol] 10*3/uL Normal <0.10 [facility] Comment on above: Order Comment: Speci men Type: BLOOD SPECIMENOrdering Facility: [facility] Address: [address] [place] [address] Performed By: #### 5 7021-8 ####[facility] LABIA [id number] [place] [address] [place] Immature granulocytes/100 WBC (Bld) 0.4 % Normal [facility] Comment on above: Order Comment: Speci men Type: BLOOD SPECIMENOrdering Facility: [facility] Address: [address] [place] [address] Performed By: #### 5 7021-8 ####[facility] LABCLIA [id number] [place] [address] [place] Lymphocytes (Bld) [#/Vol] 1.07 10*3/uL Normal 1.00-4.00 [facility] Comment on above: Order Comment: Speci men Type: BLOOD SPECIMENOrdering Facility: [facility] Address: [address] [place] [address] Performed By: #### 5 7021-8 ####[facility] LABCLIA [id number] [place] [address] [place] Lymphocytes/100 WBC (Bld) 19.0 % Normal [facility] Comment on above: Order Comment: Speci men Type: BLOOD SPECIMENOrdering Facility: [facility] Address: [address] [place] [address] Performed By: #### 5 7021-8 ####[facility] LABCLIA [id number] [place] [address] [place] MCH (RBC) [Entitic mass] 31.0 pg Normal 26.0-34.0 [facility] Comment on above: Order Comment: Speci men Type: BLOOD SPECIMENOrdering Facility: [facility] Address: [address] [place] [address] Performed By: #### 5 7021-8 ####[facility] LABCLIA [id number] [place] [address] [place] MCHC (RBC) [Mass/Vol] 31.2 g/dL Normal 30.5-36.0 [facility] Comment on above: Order Comment: Speci men Type: BLOOD SPECIMENOrdering Facility: [facility] Address: [address] [place] [address] Performed By: #### 5 7021-8 ####[facility] LABIA [id number] [place] [address] [place] MCV (RBC) [Entitic vol] 99.5 fL Normal 80.0-100.0 [facility] Comment on above: Order Comment: Speci men Type: BLOOD SPECIMENOrdering Facility: [facility] Address: [address] [place] [address] Performed By: #### 5 7021-8 ####[facility] LABCLIA [id number] [place] [address] [place] Monocytes (Bld) [#/Vol] 0.51 10*3/uL Normal <0.87 [facility] Comment on above: Order Comment: Speci men Type: BLOOD SPECIMENOrdering Facility: [facility] Address: [address] [place] [address] Performed By: #### 5 7021-8 ####[facility] LABCLIA [id number] [place] [address] [place] Monocytes/100 WBC (Bld) 9.1 % Normal [facility] Comment on above: Order Comment: Speci men Type: BLOOD SPECIMENOrdering Facility: [facility] Address: [address] [place] [address] Performed By: #### 5 7021-8 ####[facility] LABCLIA [id number] [place] [address] [place] Neutrophils (Bld) [#/Vol] 3.77 10*3/uL Normal 1.45-7.50 [facility] Comment on above: Order Comment: Speci men Type: BLOOD SPECIMENOrdering Facility: [facility] Address: [address] [place] [address] Performed By: #### 5 7021-8 ####[facility] LABCLIA [id number] [place] [address] [place] Neutrophils/100 WBC (Bld) 66.9 % Normal [facility] Comment on above: Order Comment: Speci men Type: BLOOD SPECIMENOrdering Facility: [facility] Address: [address] [place] [address] Performed By: #### 5 7021-8 ####[facility] LABCLIA [id number] [place] [address] [place] Nucleated RBC (Bld) [#/Vol] 10*3/uL Normal <0.01 [facility] Comment on above: Order Comment: Speci men Type: BLOOD SPECIMENOrdering Facility: [facility] Address: [address] [place] [address] Performed By: #### 5 7021-8 ####[facility] LABCLIA [id number] [place] [address] [place] Nucleated RBC/100 WBC (Bld) [Ratio] 0.0 /100 WBC Normal [facility] Comment on above: Order Comment: Speci men Type: BLOOD SPECIMENOrdering Facility: [facility] Address: [address] [place] [address] Performed By: #### 5 7021-8 ####[facility] LABCLIA [id number] [place] [address] [place] Platelet mean volume (Bld) [Entitic vol] 9.7 fL Normal 9.0-12.7 [facility] Comment on above: Order Comment: Speci men Type: BLOOD SPECIMENOrdering Facility: [facility] Address: [address] [place] [address] Performed By: #### 5 7021-8 ####[facility] LABCLIA [id number] [place] [address] [place] Platelets (Bld) [#/Vol] 348 10*3/uL Normal 150-400 [facility] Comment on above: Order Comment: Speci men Type: BLOOD SPECIMENOrdering Facility: [facility] Address: [address] [place] [address] Performed By: #### 5 7021-8 ####[facility] LABIA [id number] [place] [address] [place] RBC (Bld) [#/Vol] 4.06 10*6/uL Normal 3.90-5.20 [facility] Comment on above: Order Comment: Speci men Type: BLOOD SPECIMENOrdering Facility: [facility] Address: [address] [place] [address] Performed By: #### 5 7021-8 ####[facility] LABCLIA [id number] [place] [address] [place] WBC (Bld) [#/Vol] 5.63 10*3/uL Normal 3.70-11.00 [facility] Comment on above: Order Comment: Speci men Type: BLOOD SPECIMENOrdering Facility: [facility] Address: [address] [place] [address] Performed By: #### 5 7021-8 ####[facility] LABCLIA [id number] [address] [id number] [address] [place] CNOVon 04-26-2024 CNOV Office Visit (FAMPWS ) BEHZAD HAY ([id number]) 1940 F Date Time Provider Department 04/26/24 10:00 AM [facility] your visit today, we recorded the following information about you: Pulse Blood pressure Weight 62/minute 142/78 54 kg Tasha Deutsch, COMMUNITY RELATIONS OFFICER.AVIATION ELECTRONIC WARFARE OPERATOR 04/26/2024 10:53 AM Signed This is a 84 year old female who presents today with: Patient presents with: 6 Month Exam HISTORY OF PRESENT ILLNESS: Behzad Hay is a 84 year old female. Patient presents with: 6 Month Exam Sore on left lateral foot hurting- sore that is healed but a prominent bone PAST MEDICAL HISTORY: PAST MEDICAL HISTORY Diagnosis Date Abnormal CT of the abdomen 01/24/2014 localized perihepatic fluid indeterminate, 4mm density too small for ID, fusiforma sortic ectasia Anemia Arthritis Cerebral degeneration (HCC) Collagenous colitis Degenerative lumbar disc Dyslipidemia GERD (gastroesophageal reflux disease) H/O colonoscopy 09/23/2014 small internal hemorrhoids otherwise WNL. No further surveillance recommended Hiatal hernia History of esophagogastroduodenoscopy (EGD) [facility] HTN (hypertension) Hyperlipidemia, mixed Osteoarthritis Osteopenia PUD (peptic ulcer disease) 2013 Vitamin D deficiency PAST SURGICAL HISTORY Procedure Laterality Date VA, [place]-TYPE Left 03/30/2007 Dr. Devin BUNIONECTOMY, [place]-TYPE Right 03/30/2008 Dr. Beltran CATARACT EXTRACTION W/ INTRAOCULAR LENS IMPLANT HX Left 03/31/2003 Dr. Sosa COLONOSCOPY 09/23/[address] Addy Enriquez, [place] internal hemorrhoids, otherwise WNL COLONOSCOPY FLX DX W/COLLJ SPEC WHEN PFRMD 09/01/[address] ABDOMEN AND PELVIS W/CONT 01/24/2014 localized yan hepatic unclear etiology, inflammatory vs metastatic disease; EGD 09/23/2014 Dr. Zoe Diana Normal esophagus, z-line, stomach and duodenum ESOPHAGOGASTRODUODENOSCOPY TRANSORAL DIAGNOSTIC 09/01/2020 EYE SURGERY HX INCISE FINGER TENDON SHEATH Right 12/26/2016 Right ring trigger finger release JOINT REPLACEMENT HX LAP UMBILICAL HERNIA REPAIR 02/24/2014 Umbilical hernia repair REMOVE CATARACT, INSERT LENS,EX Right REMV CATARACT EXTRACAP,INSERT LENS Right 03/31/2003 REMV CATARACT EXTRACAP,INSERT LENS Left 02/17/2003 REVJ TOT HIP ARTHRP BTH W/WO AGRFT/ALGRFT Right 05/30/2011 ROTATOR CUFF REPAIR Right 2013 R rotator cuff repair TONSILLECTOMY HX TONSILLECTOMY PRIMARY/SECONDARY Tonsillectomy TOTAL HIP JOINT REPLACEMENT Left 10/03/2014 ALLERGIES Adhesive Tape (Rosins), Bactrim [Sulfamethoxazole-Trimethop rim], Macrobid [Nitrofurantoin Monohyd/M-Cryst], and [place]-Abh-Bgr Reductase Inhibitors MEDICATIONS Current Outpatient Medications Medication Sig cyanocobalamin (VITAMIN B-12) 1,000 mcg tab Take 1,000 mcg by mouth once daily. acetaminophen (TYLENOL EXTRA STRENGTH) 500 mg tablet Take 2 tablets by mouth two times a day as needed for pain. lisinopril (ZESTRIL) 30 mg tablet Take 1 tablet by mouth once daily. TURMERIC ORAL Take by mouth. CAPSICUM, CAYENNE, ORAL Take by mouth. ascorbic acid/bioflavonoids (JENNIE C ORAL) Take by mouth. FLAXSEED OIL ORAL Take by mouth. GARLIC ORAL Take by mouth. Magnesium 250 mg tab Take 500 mg by mouth once daily. propylene glycol/peg 400 (SYSTANE ULTRA OPHTHALMIC) Use in eyes. Zinc 50 mg tab Take by mouth once daily. cranberry fruit extract (CRANBERRY ORAL) Take 650 mg by mouth once daily. LACTOBACILLUS ACIDOPHILUS (PROBIOTIC ACIDOPHILUS ORAL) Take by mouth. cholecalciferol (VITAMIN D3) 5,000 unit tab Take 5,000 Units by mouth once daily. multivitamin ORAL tablet Take 1 tablet by mouth once daily. estradiol (ESTRACE) 0.01 % (0.1 mg/gram) vaginal cream Apply pea-sized amount to perineum and 1 applicator vaginally Mon, Wed, Fri for atrophic vaginitis. No current facility-administered medications for this visit. FAMILY HISTORY Problem Relation Age of Onset Cancer Mother Hypertension Mother other (CVA) Mother age 86 Heart Father other (CVA) Father age 81 Ischemic Heart Disease Brother age 76 other (CVA) Brother other (ADMISSIONS COUNSELOR shunt) Brother Hypertension Sister Diabetes Sister age 66 (sepsis) Social History Tobacco Use Smoking status: Never Smokeless tobacco: Never Vaping Use Vaping status: Never Used Substance Use Topics Alcohol use: No Drug use: No REVIEW OF SYSTEMS GENERAL: No weight loss, + malaise d/t not sleeping because foot is hurting, no fevers/chills HEENT: Negative for frequent or significant headaches, Poor hearing but no changes vision. NECK: Negative for lumps, goiter, pain and significant neck swelling- neck often hurts and takes acetaminophen for it RESPIRATORY: Negative for cough, hemoptysis, wheezing, dyspnea or shortne (more content not included)... Normal [facility] 04-26-2024 [facility] Tele[facility] ([facility]) BHARTIBEHZAD Lugo ([id number]) 1940 F Date Time Provider Department 04/26/24 TASHA DEUTSCH [facility] During your visit today, we recorded the following information about you: Tasha Deutsch APRN.[facility] 04/26/2024 4:40 PM Signed Please let patient know that it looks like she has a bladder infection. I do not want her to wait until Friday for the culture. I am going to send a prescription for amoxicillin 500 mg 3 times daily to the pharmacy for her. She will need to take it for 10 days. Winsome Butler MA 04/26/2024 4:49 PM Signed Patient was made aware of the results. Patient verbalizes understanding. Winsome Butler Ma Allergies As of Date: 04/26/2024 Noted Allergy Reaction ADHESIVE TAPE (ROSINS) 08/27/2011 2 - Rash BACTRIM (SULFAMETHOXAZOLE-TRIMETH*0 09/25/2018 2 - Rash MACROBID (NITROFURANTOIN MONOHYD/*09/25/2018 2 - Rash TWQHEBT-QII-OCS REDUCTASE INHIBIT*10/06/2014 5 - Intolerance Date Reviewed: 04/26/2024 Reviewed by: Tasha Deutsch APRN.AVIATION ELECTRONIC WARFARE OPERATOR - Fully Assessed Primary Visit Diagnosis:Recurrent UTI (urinary tract infection) [N39.0] Order(s):amoxicillin (AMOXIL) 500 mg capsuleTake 1 capsule by mouth three times a day for 10 days.Disp: 30 capsuleRfl: 0 Prescriptions as of 04/26/2024 - solifenacin (VESICARE) 5 mg tablet Take 1 tablet by mouth once daily. - amoxicillin (AMOXIL) 500 mg capsule Take 1 capsule by mouth three times a day for 10 days. - cyanocobalamin (VITAMIN B-12) 1,000 mcg tab Take 1,000 mcg by mouth once daily. - estradiol (ESTRACE) 0.01 % (0.1 mg/gram) vaginal cream Apply pea-sized amount to perineum and 1 applicator vaginally Fri, Fri, Fri for atrophic vaginitis. - acetaminophen (TYLENOL EXTRA STRENGTH) 500 mg tablet Take 2 tablets by mouth two times a day as needed for pain. - lisinopril (ZESTRIL) 30 mg tablet Take 1 tablet by mouth once daily. - TURMERIC ORAL Take by mouth. - CAPSICUM, CAYENNE, ORAL Take by mouth. - ascorbic acid/bioflavonoids (JENNIE C ORAL) Take by mouth. - FLAXSEED OIL ORAL Take by mouth. - GARLIC ORAL Take by mouth. - Magnesium 250 mg tab Take 500 mg by mouth once daily. - propylene glycol/peg 400 (SYSTANE ULTRA OPHTHALMIC) Use in eyes. - Zinc 50 mg tab Take by mouth once daily. - cranberry fruit extract (CRANBERRY ORAL) Take 650 mg by mouth once daily. - LACTOBACILLUS ACIDOPHILUS (PROBIOTIC ACIDOPHILUS ORAL) Take by mouth. - cholecalciferol (VITAMIN D3) 5,000 unit tab Take 5,000 Units by mouth once daily. - multivitamin ORAL tablet Take 1 tablet by mouth once daily. Problem List As Of Date 04/26/2024 Noted Resolved Trigger ring finger of right hand [M65.341] 08/15/2016 Injury of extensor tendon of hand [S66.909A] 08/15/2016 Spontaneous rupture of extensor tendon of left *09/23/2016 Acquired trigger finger [M65.30] 12/10/2016 Chronic renal insufficiency, stage 3 (moderate)*02/27/2017 Vitamin D deficiency [E55.9] 02/27/2017 DDD (degenerative disc disease), cervical [M50.*02/27/2017 Primary osteoarthritis of right hip [M16.11] 02/27/2017 Iatrogenic [place]'s disease (HCC) [ZHL4636] 07/28/2017 07/06/2018 Collagenous colitis [K52.831] 12/21/2018 IBS (irritable bowel syndrome) [K58.9] 12/21/2018 Hiatal hernia [K44.9] 09/11/2020 Fall from standing [W19.XXXA] 06/05/2021 Rotator cuff tear arthropathy, left [M75.102, M*10/29/2021 Paroxysmal atrial fibrillation (HCC) [I48.0] 04/11/2022 Primary hypertension [I10] 12/30/2022 Acute pain of right shoulder [M25.511] 04/16/2023 Severe pain of left shoulder [M25.512] 04/16/2023 Cervicalgia [M54.2] 04/16/2023 Prescriptions ordered this encounter Disp Refills Start End AMOXICILLIN 500 MG CAPSULE 30 c* 0 04/26/2024 05/06/2024 Route: ORAL Sig: Take 1 capsule by mouth three times a day for 10 days. Encounter Status:Closed by WINSOME BUTLER on 04/26/24 Normal [facility] metabolic 2000 panelon 04-26-2024 Albumin [Mass/Vol] 4.4 g/dL Normal 3.9-4.9 [facility] Comment on above: Order Comment: Speci men Type: BLOOD SPECIMEN Ordering Facility: [facility] Address: [address] [id number] Performed By: #### 2 132-9, 68212-7 #### [facility] CLIA [id number] [address] [place], [place] [address] [place] ALP [Catalytic activity/Vol] 95 U/L Normal 34-123 [facility] Comment on above: Order Comment: Speci men Type: BLOOD SPECIMEN Ordering Facility: [facility] Address: [address] [place] [address] Performed By: #### 2 132-9, 60268-1 #### [facility] CLIA [id number] [address] [place] [address] [place] ALT [Catalytic activity/Vol] 17 U/L Normal 7-38 [facility] Comment on above: Order Comment: Speci men Type: BLOOD SPECIMEN Ordering Facility: [facility] Address: [address] [place] [address] Performed By: #### 2 132-9, 19001-5 #### [facility] CLIA [id number] [address] [place] [address] [place] Anion gap [Moles/Vol] 13 mmol/L Normal 8-15 [facility] Comment on above: Order Comment: Speci men Type: BLOOD SPECIMEN Ordering Facility: [facility] Address: [address] [id number] Performed By: #### 2 132-9, 03975-0 #### [facility] CLIA [id number] [address] [place] [address] [place] AST [Catalytic activity/Vol] 24 U/L Normal 13-35 [facility] Comment on above: Order Comment: Speci men Type: BLOOD SPECIMEN Ordering Facility: [facility] Address: [address] [place] [address] Performed By: #### 2 132-9, #### [facility] CLIA [id number] [address] [place] [address] [place] Bilirubin [Mass/Vol] 0.3 mg/dL Normal 0.2-1.3 [facility] Comment on above: Order Comment: Speci men Type: BLOOD SPECIMEN Ordering Facility: [facility] Address: [address] [place] [address] Performed By: #### 2 132-9, #### [facility] CLIA [id number] [address] [place] [address] [place] Calcium [Mass/Vol] 10.4 mg/dL High 8.5-10.2 [facility] Comment on above: Order Comment: Speci men Type: BLOOD SPECIMEN Ordering Facility: [facility] Address: [address] [place] [address] Performed By: #### 2 132-9, #### [facility] CLIA [id number] [address] [place] [address] [place] Chloride [Moles/Vol] 101 mmol/L Normal 98-107 [facility] Comment on above: Order Comment: Speci men Type: BLOOD SPECIMEN Ordering Facility: [facility] Address: [address] [place] [address] Performed By: #### 2 132-9, #### [facility] CLIA [id number] [address] [place] [address] [place] CO2 [Moles/Vol] 26 mmol/L Normal 22-30 [facility] Comment on above: Order Comment: Speci men Type: BLOOD SPECIMEN Ordering Facility: [facility] Address: [address] [place] [address] Performed By: #### 2 132-9, #### [facility] CLIA [id number] [address] [place] [address] [place] Creatinine [Mass/Vol] 0.87 mg/dL Normal 0.58-0.96 [facility] Comment on above: Order Comment: Cheri jimenez Type: BLOOD SPECIMEN Ordering Facility: [facility] Address: [address] [place] [address] Performed By: #### 2 132-9, 56242-5 #### [facility] CLIA [id number] [address] [place] [address] [facility] Creatinine and Glomerular filtration rate.predicted panel (S/P/Bld) 65 mL/min/1.73m??? Normal >=60 [facility] Comment on above: Order Comment: Cheri jimenez Type: BLOOD SPECIMEN Ordering Facility: [facility] Address: [address] [place] [address] Result Comment: Pattie mated Glomerular Filtration Rate (eGFR) is calculated using the 2020 CKD-EPI creatinine equation. This equation utilizes serum creatinine, sex, and age as parameters. The creatinine assay has traceable calibration to isotope dilution-mass spectrometry. Refer to KDIGO guidelines for clinical interpretation. In patients with unstable renal function, e.g. those with acute kidney injury, the eGFR may not accurately reflect actual GFR. Performed By: #### 2 132-9, 08754-8 #### [facility] CLIA [id number] [address] [place] [address] [place] Glucose [Mass/Vol] 112 mg/dL High 74-99 [facility] Comment on above: Order Comment: Cheri jimenez Type: BLOOD SPECIMEN Ordering Facility: [facility] Address: [address] [place] [address] Result Comment: The [place] Diabetes Association (ADA) provides guidance for cutoff values for fasting glucose and random glucose. The ADA defines fasting as no caloric intake for at least 8 hours. Fasting plasma glucose results between 100 to 125 mg/dL indicate increased risk for diabetes (prediabetes). Fasting plasma glucose results greater than or equal to 126 mg/dL meet the criteria for diagnosis of diabetes. In the absence of unequivocal hyperglycemia, results should be confirmed by repeat testing. In a patient with classic symptoms of hyperglycemia or hyperglycemic crisis, random plasma glucose results greater than or equal to 200 mg/dL meet the criteria for diagnosis of diabetes. Reference: Standards of Medical Care in Diabetes 2016, [place] [employer]. Diabetes Care. 2016.39(Suppl 1). Performed By: #### 2 132-9, 16956-4 #### [facility] CLIA [id number] [address] [place] [address] [place] Potassium [Moles/Vol] 5.1 mmol/L Normal 3.7-5.1 [facility] Comment on above: Order Comment: Speci men Type: BLOOD SPECIMEN Ordering Facility: [facility] Address: [address] [place] [address] Performed By: #### 2 132-9, 24615-6 #### [facility] CLIA [id number] [address] [place] [address] [place] Protein [Mass/Vol] 7.1 g/dL Normal 6.3-8.0 [facility] Comment on above: Order Comment: Speci men Type: BLOOD SPECIMEN Ordering Facility: [facility] Address: [address] [place] [address] Performed By: #### 2 132-9, #### [facility] CLIA [id number] [address] [place] [address] [place] Sodium [Moles/Vol] 140 mmol/L Normal 136-144 [facility] Comment on above: Order Comment: Speci men Type: BLOOD SPECIMEN Ordering Facility: [facility] Address: [address] [place] [address] Performed By: #### 2 132-9, 00603-3 #### [facility] CLIA [id number] [address] [place] [address] [place] Urea nitrogen [Mass/Vol] 16 mg/dL Normal 7-21 [facility] Comment on above: Order Comment: Speci men Type: BLOOD SPECIMEN Ordering Facility: [facility] Address: [address] [place] [address] Performed By: #### 2 132-9, 60765-2 #### [facility] CLIA [id number] [address] [place] [address] [place] Ferritin SerPl-mCncon 2024 Ferritin [Mass/Vol] 64.4 ng/mL Normal 14.7-205.1 [facility] Comment on above: Order Comment: Speci men Type: BLOOD SPECIMENOrdering Facility: [facility] Address: [address] [place] [address] Performed By: #### 1 9123-9, 72705-8, 2276-4, LIPNF ####[facility] [id number] [place] [address] [place] HbA1c (Bld)on 04-26-2024 Average glucose Estimated from glycated hemoglobin (Bld) [Mass/Vol] 105 mg/dL Normal [facility] Comment on above: Order Comment: Cheri jimenez Type: BLOOD SPECIMEN Ordering Facility: [facility] Address: [address] [place] [address] Result Comment: eAG: (Estimated average glucose) is a calculated value from HgbA1c and is equal opportunity representative of the average blood glucose level in the last 2-3 month period. Performed By: #### 5 5454-3 #### [facility] CLIA [id number] [address] [place] [address] [place] HbA1c (Bld) [Mass fraction] 5.3 % Normal 4.3-5.6 [facility] Comment on above: Order Comment: Patriciai [facility] Type: BLOOD SPECIMEN Ordering Facility: [facility] Address: [address] [place] [address] Result Comment: Amer ican Diabetes Association guidelines indicate that patients with HgbA1c in the range 5.7-6.4% are at increased risk for development of diabetes, and intervention by lifestyle modification may be beneficial. HgbA1c greater or equal to 6.5% is considered diagnostic of diabetes. Performed By: #### 5 5454-3 #### [facility] CLIA [id number] [address] [place] [address] [place] Iron and Iron binding capaci ty panelon 04-26-2024 Iron [Mass/Vol] 80 ug/dL Normal 41-186 [facility] Comment on above: Order Comment: Speci men Type: BLOOD SPECIMENOrdering Facility: [facility] Address: [address] [place] [address] Performed By: #### 1 9123-9, 36882-7, 2276-4, LIPNF ####[facility] [id number] [place] [address] [place] Iron binding capacity [Mass/Vol] 333 ug/dL Normal 232-386 [facility] Comment on above: Order Comment: Speci men Type: BLOOD SPECIMENOrdering Facility: [facility] Address: [address] [place] [address] Performed By: #### 1 9123-9, 93990-6, 6-4, LIPNF ####[facility]IA [id number] [place] [address] [place] Iron/TIBC [Molar ratio] 24.0 % Normal 15.0-57.0 [facility] Comment on above: Order Comment: Speci men Type: BLOOD SPECIMENOrdering Facility: [facility] Address: [address] [place] [address] Performed By: #### 1 9123-9, 73654-8, 6-4, LIPNF ####[facility]IA [id number] [place] [id number] [place] LIPID PANEL, NONFASTINGon Cholesterol [Mass/Vol] 238 mg/dL High <200 [facility] Comment on above: Order Comment: Speci men Type: BLOOD SPECIMENOrdering Facility: [facility] Address: [address] [place] [address] Result Comment: <200 mg/dL, Desirable 200-239 mg/dL, Borderline high >239 mg/dL, High Performed By: #### 1 9123-9, 12050-9, 6-4, LIPNF ####[facility]IA [id number] [place] [address] [place] HDL CHOLESTEROL, NF 78 mg/dL Normal >39 [facility] Comment on above: Order Comment: Speci men Type: BLOOD SPECIMENOrdering Facility: [facility] Address: [address] [place] [address] Result Comment: 40-5 9 mg/dL, Acceptable >59 mg/dL, High: Negative risk factor for coronary heart disease <40 mg/dL, Low: Positive risk factor for coronary heart disease Performed By: #### 1 9123-9, 44012-9, 6-4, LIPNF ####[facility]IA [id number] [address] [facility] LDL CHOLESTEROL, NF 143 mg/dL High <100 [facility] Comment on above: Order Comment: Speci men Type: BLOOD SPECIMENOrdering Facility: [facility] Address: [address] [place] [address] Result Comment: <100 mg/dL, Optimal 100-129 mg/dL, Near optimal/above optimal 130-159 mg/dL, Borderline high 160-189 mg/dL, High >189 mg/dL, Very high Secondary prevention optimal LDL Cholesterol levels are recommended to be < 70 mg/dL Performed By: #### 1 9123-9, 81059-9, 2275-4, LIPNF ####[facility]IA [id number] [place] [address] [place] LDL/HDL RATIO, NF 1.83 mg/dL Normal <2.54 [facility] Comment on above: Order Comment: Speci men Type: BLOOD SPECIMENOrdering Facility: [facility] Address: [address] [place] [address] Result Comment: Refe rence: 1. National Cholesterol Education Program ATP III Guideline At-A-Glance Quick Desk Reference: National Heart, Lung, and Blood [place]. National Institutes of Health. 2001: NIH Publication No. 01-3305. 2. An International Atherosclerosis Society position paper: global recommendations for the management of dyslipidemia: executive summary, Atherosclerosis. 2014: 232(2):410-413. Performed By: #### 1 9123-9, 14762-6, 2276-4, LIPNF ####[facility]IA [id number] [place] [address] [place] NON HDL CHOL, NF 160 mg/dL High <130 [facility] Comment on above: Order Comment: Speci men Type: BLOOD SPECIMENOrdering Facility: [facility] Address: [address] [place] [address] Result Comment: <130 mg/dL, Optimal 130-159 mg/dL, Near optimal/above optimal 160-189 mg/dL, Borderline high 190-219 mg/dL, High >219 mg/dL, Very high Secondary prevention optimal non HDL Cholesterol levels are recommended to be <100 mg/dL Performed By: #### 1 9123-9, 59833-6, 6-4, LIPNF ####[facility]IA [id number] [place] [address] [place] T CHOL/HDL RATIO NF 3.05 mg/dL Normal <5.10 [facility] Comment on above: Order Comment: Speci men Type: BLOOD SPECIMENOrdering Facility: [facility] Address: [address] [place] [address] Performed By: #### 1 9123-9, 39655-7, 6-4, LIPNF ####[facility]IA [id number] [place] [address] [place] TRIGLYCERIDES, NF 84 mg/dL Normal <150 [facility] Comment on above: Order Comment: Speci men Type: BLOOD SPECIMENOrdering Facility: [facility] Address: [address] [place] [address] Result Comment: <150 mg/dL, Normal 150-199 mg/dL, Borderline high 200-499 mg/dL, High >499 mg/dL, Very high Performed By: #### 1 9123-9, 89276-2, 2276-4, LIPNF ####[facility]IA [id number] [place] [address] [place] VLDL CHOLESTEROL, NF 17 mg/dL Normal <30 [facility] Comment on above: Order Comment: Speci men Type: BLOOD SPECIMENOrdering Facility: [facility] Address: [address] [place] [address] Performed By: #### 1 9123-9, 21087-3, 2276-4, LIPNF ####[facility]IA [id number] [place] [address] [place] Magnesium SerPl-mCncon 04-26 Magnesium [Mass/Vol] 2.6 mg/dL High 1.7-2.3 [facility] Comment on above: Order Comment: Speci men Type: BLOOD SPECIMENOrdering Facility: [facility] Address: [address] [place] [address] Performed By: #### 1 9123-9, 13527-0, 2276-4, LIPNF ####[facility]IA [id number] [place] [address] [place] URINALYSIS, REFLEX MICROSCOP ICon 04-26-2024 Bacteria uL uL High Negative uL [facility] Bilirubin Ql (U) Negative Negative [facility] Clarity (Unsp spec) Cloudy Abnormal Clear [facility] Color (U) Yellow Yellow [facility] Epithelial cells LM.HPF (Urine sed) [#/Area] None Seen /HPF [facility] Glucose Test strip (U) [Mass/Vol] Negative Negative [facility] Hemoglobin Ql (U) Trace Abnormal Negative [facility] Hyaline casts (Urine sed) [#/Area] 4-10 /LPF Abnormal 0 /LPF [facility] Interpretation and review of laboratory results Abnormal [facility] Ketones Ql (U) Negative Negative [facility] Leukocyte esterase Test strip Ql (U) 2+ Abnormal Negative [facility] Nitrite Ql (U) Positive Abnormal Negative [facility] pH (U) 6.5 [pH] NINF - 8.5 [facility] Protein (U) [Mass/Vol] Trace Abnormal Negative [facility] RBC LM.HPF (Urine sed) [#/Area] 3-5 /HPF Abnormal 0-2 /HPF [facility] Specific gravity (U) [Rel density] 1.018 1.005 - 1.030 [facility] Urobilinogen Ql (U) 0.2 EU/dL 0.2-1.0 EU/dL [facility] WBC LM.HPF (Urine sed) [#/Area] /[HPF] Abnormal 0-5 /HPF [facility] This test was devvicko ped and its performance characteristics determined by [facility]'s [facility] Pathology and Laboratory Medicine [place] ([facility] [email or web address]). It has not been cleared or approved by the FDA. -[facility] is regulated under CLIA as qualified to perform high-complexity testing. This test is used for clinical purposes. It should not be regarded as investigational or for research. [facility] BACTERIA UL >9821 High Negative [facility] Comment on above: Order Comment: Speci men Type: URINE SPECIMENOrdering Facility: [facility] Address: [address] [place] [address] Performed By: #### L [id number] ####[facility]IA [id number] [place] [address] [place] Bilirubin Ql (U) Negative Normal Negative [facility] Comment on above: Order Comment: Speci men Type: URINE SPECIMENOrdering Facility: [facility] Address: [address] [place] [address] Performed By: #### L [id number] ####[facility]IA [id number] [place] [address] [place] Clarity (Unsp spec) Cloudy Abnormal Clear [facility] Comment on above: Order Comment: Speci men Type: URINE SPECIMENOrdering Facility: [facility] Address: [address] [place] [address] Performed By: #### L [id number] ####[facility]CLIA [id number] [place] [address] [place] Color (U) Yellow Normal Yellow [facility] Comment on above: Order Comment: Speci men Type: URINE SPECIMENOrdering Facility: [facility] Address: [address] [place] [address] Performed By: #### L [id number] ####[facility]CLIA [id number] [place] [address] [place] Epithelial cells LM.HPF (Urine sed) [#/Area] None Seen Normal [facility] Comment on above: Order Comment: Speci men Type: URINE SPECIMENOrdering Facility: [facility] Address: [address] [place] [address] Performed By: #### L [id number] ####[facility]CLIA [id number] [place] [address] [place] Glucose Test strip (U) [Mass/Vol] Negative Normal Negative [facility] Comment on above: Order Comment: Speci men Type: URINE SPECIMENOrdering Facility: [facility] Address: [address] [place] [address] Performed By: #### L [id number] ####[facility]CLIA [id number] [place] [address] [place] Hemoglobin Ql (U) Trace Abnormal Negative [facility] Comment on above: Order Comment: Speci men Type: URINE SPECIMENOrdering Facility: [facility] Address: [address] [place] [address] Performed By: #### L [id number] ####[facility]CLIA [id number] [place] [address] [place] Hyaline casts (Urine sed) [#/Area] 4-10 /LPF Abnormal 0 /LPF [facility] Comment on above: Order Comment: Speci men Type: URINE SPECIMENOrdering Facility: [facility] Address: [address] [place] [address] Performed By: #### L [id number] ####[facility]CLIA [id number] [place] [address] [place] Ketones Ql (U) Negative Normal Negative [facility] Comment on above: Order Comment: Speci men Type: URINE SPECIMENOrdering Facility: [facility] Address: [address] [place] [address] Performed By: #### L [id number] ####[facility]CLIA [id number] [place] [address] [place] Leukocyte esterase Test strip Ql (U) 2+ Abnormal Negative [facility] Comment on above: Order Comment: Speci men Type: URINE SPECIMENOrdering Facility: [facility] Address: [address] [place] [address] Performed By: #### L [id number] ####[facility]CLIA [id number] [place] [address] [place] Nitrite Ql (U) Positive Abnormal Negative [facility] Comment on above: Order Comment: Speci men Type: URINE SPECIMENOrdering Facility: [facility] Address: [address] [place] [address] Performed By: #### L [id number] ####[facility]CLIA [id number] [place] [address] [place] pH (U) 6.5 [pH] Normal <8.5 [facility] Comment on above: Order Comment: Speci men Type: URINE SPECIMENOrdering Facility: [facility] Address: [address] [place] [address] Performed By: #### L [id number] ####[facility]CLIA [id number] [place] [address] [place] Protein (U) [Mass/Vol] Trace Abnormal Negative [facility] Comment on above: Order Comment: Speci men Type: URINE SPECIMENOrdering Facility: [facility] Address: [address] [place] [address] Performed By: #### L [id number] ####[facility] [id number] [place] [address] [place] RBC LM.HPF (Urine sed) [#/Area] 3-5 /HPF Abnormal 0-2 /HPF [facility] Comment on above: Order Comment: Speci men Type: URINE SPECIMENOrdering Facility: [facility] Address: [address] [place] [address] Performed By: #### L [id number] ####[facility] [id number] [place] [address] [place] Specific gravity (U) [Rel density] 1.018 Normal 1.005-1.03 0 [facility] Comment on above: Order Comment: Speci men Type: URINE SPECIMENOrdering Facility: [facility] Address: [address] [place] [address] Performed By: #### L [id number] ####[facility] [id number] [place] [address] [place] Urobilinogen Ql (U) 0.2 EU/dL Normal 0.2-1.0 EU/dL [facility] Comment on above: Order Comment: Speci men Type: URINE SPECIMENOrdering Facility: [facility] Address: [address] [place] [address] Performed By: #### L [id number] ####[facility] [id number] [place] [address] [place] WBC LM.HPF (Urine sed) [#/Area] /[HPF] Abnormal 0-5 /HPF [facility] Comment on above: Order Comment: Speci men Type: URINE SPECIMENOrdering Facility: [facility] Address: [address] [place] [address] Performed By: #### L [id number] ####[facility]CLIA [id number] [facility] [place] [address] [place] Vit B12 SerPl-mCncon 13-2 025 Cobalamin (Vitamin B12) [Mass/Vol] 1258 pg/mL High 232-1245 [facility] Comment on above: Order Comment: Speci men Type: BLOOD SPECIMEN Ordering Facility: [facility] Address: [address] [place] [address] Performed By: #### 2 132-9, 28582-4 #### [facility] CLIA [id number] [address] [place] [address] [place] CNPChelsea 04-08-2024 CNPN Telephone (FAMPWS) BHARTIBEHZAD Lugo ([id number]) 1940 F Date Time Provider Department 04/08/24 TASHA DEUTSCH During your visit today, we recorded the following information about you: Mara Hatch MA 04/08/2024 1:43 PM Signed ----- Message from Tasha Deutsch sent at 04/08/2024 9:12 AM EST ----- Your urine cultured E. coli. You did have a urinary tract infection. However, the antibiotic that I put you on for Sinusitis will be effective for this urinary tract bacteria. Mara Hatch MA 04/08/2024 1:44 PM Signed Pt notified and voiced understanding. Mara Hatch MA Allergies As of Date: 04/08/2024 Noted Allergy Reaction ADHESIVE TAPE (ROSINS) 08/27/2011 2 - Rash BACTRIM (SULFAMETHOXAZOLE-TRIMETH*0 09/25/2018 2 - Rash MACROBID (NITROFURANTOIN MONOHYD/*09/25/2018 2 - Rash UOIICIW-JDB-PBX REDUCTASE INHIBIT*10/06/2014 5 - Intolerance Date Reviewed: 04/05/2024 Reviewed by: Tasha Deutsch APRN.AVIATION ELECTRONIC WARFARE OPERATOR - Fully Assessed Reason for Visit: Results [95] Prescriptions as of 04/08/2024 - amoxicillin-clavulanate potassium (AUGMENTIN) 875-125 mg per tablet Take 1 tablet by mouth two times a day for 10 days. - cyanocobalamin (VITAMIN B-12) 1,000 mcg tab Take 1,000 mcg by mouth once daily. - estradiol (ESTRACE) 0.01 % (0.1 mg/gram) vaginal cream Apply pea-sized amount to perineum and 1 applicator vaginally Mon, Fri, Fri for atrophic vaginitis. - acetaminophen (TYLENOL EXTRA STRENGTH) 500 mg tablet Take 2 tablets by mouth two times a day as needed for pain. - lisinopril (ZESTRIL) 30 mg tablet Take 1 tablet by mouth once daily. - TURMERIC ORAL Take by mouth. - CAPSICUM, CAYENNE, ORAL Take by mouth. - ascorbic acid/bioflavonoids (JENNIE C ORAL) Take by mouth. - FLAXSEED OIL ORAL Take by mouth. - GARLIC ORAL Take by mouth. - Magnesium 250 mg tab Take 500 mg by mouth once daily. - propylene glycol/peg 400 (SYSTANE ULTRA OPHTHALMIC) Use in eyes. - Zinc 50 mg tab Take by mouth once daily. - cranberry fruit extract (CRANBERRY ORAL) Take 650 mg by mouth once daily. - LACTOBACILLUS ACIDOPHILUS (PROBIOTIC ACIDOPHILUS ORAL) Take by mouth. - cholecalciferol (VITAMIN D3) 5,000 unit tab Take 5,000 Units by mouth once daily. - multivitamin ORAL tablet Take 1 tablet by mouth once daily. Problem List As Of Date 04/08/2024 Noted Resolved Trigger ring finger of right hand [M65.341] 08/15/2016 Injury of extensor tendon of hand [S66.909A] 08/15/2016 Spontaneous rupture of extensor tendon of left *09/23/2016 Acquired trigger finger [M65.30] 12/10/2016 Chronic renal insufficiency, stage 3 (moderate)*02/27/2017 Vitamin D deficiency [E55.9] 02/27/2017 DDD (degenerative disc disease), cervical [M50.*02/27/2017 Primary osteoarthritis of right hip [M16.11] 02/27/2017 Iatrogenic [place]'s disease (HCC) [JFG7314] 07/28/2017 07/06/2018 Collagenous colitis [K52.831] 12/21/2018 IBS (irritable bowel syndrome) [K58.9] 12/21/2018 Hiatal hernia [K44.9] 09/11/2020 Fall from standing [W19.XXXA] 06/05/2021 Rotator cuff tear arthropathy, left [M75.102, M*10/29/2021 Paroxysmal atrial fibrillation (HCC) [I48.0] 04/11/2022 Primary hypertension [I10] 12/30/2022 Acute pain of right shoulder [M25.511] 04/16/2023 Severe pain of left shoulder [M25.512] 04/16/2023 Cervicalgia [M54.2] 04/16/2023 Encounter Status:Closed by MARA HATCH on 04/08/24 [facility] CNPN Telephone (FAMPWS) BHARTIBEHZAD Lugo ([id number]) 1940 F Date Time Provider Department 04/06/[facility] During your visit today, we recorded the following information about you: Winsome Butler MA 04/06/2024 8:14 AM Signed ----- Message from Tasha Deutsch sent at 04/06/2024 8:01 AM EST ----- It looks like you may have a urinary tract infection. I did order a reflex culture if needed. We will watch for that on Friday. Winsome Butler MA 04/06/2024 8:18 AM Signed Patient notified that culture is in process and she will be notified of Friday of results. Winsome Butler MA April 06, 2024 8:18 AM Allergies As of Date: 04/06/2024 Noted Allergy Reaction ADHESIVE TAPE (ROSINS) 08/27/2011 2 - Rash BACTRIM (SULFAMETHOXAZOLE-TRIMETH*0 09/25/2018 2 - Rash MACROBID (NITROFURANTOIN MONOHYD/*09/25/2018 2 - Rash DNUNCBB-OWS-NAC REDUCTASE INHIBIT*10/06/2014 5 - Intolerance Date Reviewed: 04/05/2024 Reviewed by: Tasha Deutsch APRN.AVIATION ELECTRONIC WARFARE OPERATOR - Fully Assessed Reason for Visit: Results [95] Prescriptions as of 04/06/2024 - amoxicillin-clavulanate potassium (AUGMENTIN) 875-125 mg per tablet Take 1 tablet by mouth two times a day for 10 days. - cyanocobalamin (VITAMIN B-12) 1,000 mcg tab Take 1,000 mcg by mouth once daily. - estradiol (ESTRACE) 0.01 % (0.1 mg/gram) vaginal cream Apply pea-sized amount to perineum and 1 applicator vaginally Fri, Fri, Fri for atrophic vaginitis. - acetaminophen (TYLENOL EXTRA STRENGTH) 500 mg tablet Take 2 tablets by mouth two times a day as needed for pain. - lisinopril (ZESTRIL) 30 mg tablet Take 1 tablet by mouth once daily. - TURMERIC ORAL Take by mouth. - CAPSICUM, CAYENNE, ORAL Take by mouth. - ascorbic acid/bioflavonoids (JENNIE C ORAL) Take by mouth. - FLAXSEED OIL ORAL Take by mouth. - GARLIC ORAL Take by mouth. - Magnesium 250 mg tab Take 500 mg by mouth once daily. - propylene glycol/peg 400 (SYSTANE ULTRA OPHTHALMIC) Use in eyes. - Zinc 50 mg tab Take by mouth once daily. - cranberry fruit extract (CRANBERRY ORAL) Take 650 mg by mouth once daily. - LACTOBACILLUS ACIDOPHILUS (PROBIOTIC ACIDOPHILUS ORAL) Take by mouth. - cholecalciferol (VITAMIN D3) 5,000 unit tab Take 5,000 Units by mouth once daily. - multivitamin ORAL tablet Take 1 tablet by mouth once daily. Problem List As Of Date 04/06/2024 Noted Resolved Trigger ring finger of right hand [M65.341] 08/15/2016 Injury of extensor tendon of hand [S66.909A] 08/15/2016 Spontaneous rupture of extensor tendon of left *09/23/2016 Acquired trigger finger [M65.30] 12/10/2016 Chronic renal insufficiency, stage 3 (moderate)*02/27/2017 Vitamin D deficiency [E55.9] 02/27/2017 DDD (degenerative disc disease), cervical [M50.*02/27/2017 Primary osteoarthritis of right hip [M16.11] 02/27/2017 Iatrogenic [place] disease (HCC) [UQQ9099] 07/28/2017 07/06/2018 Collagenous colitis [K52.831] 12/21/2018 IBS (irritable bowel syndrome) [K58.9] 12/21/2018 Hiatal hernia [K44.9] 09/11/2020 Fall from standing [W19.XXXA] 06/05/2021 Rotator cuff tear arthropathy, left [M75.102, M*10/29/2021 Paroxysmal atrial fibrillation (HCC) [I48.0] 04/11/2022 Primary hypertension [I10] 12/30/2022 Acute pain of right shoulder [M25.511] 04/16/2023 Severe pain of left shoulder [M25.512] 04/16/2023 Cervicalgia [M54.2] 04/16/2023 Encounter Status:Closed by WINSOME BUTLER on 04/06/24 Normal [facility] Bacteria Ur Culton 4 Bacteria identified Cx Nom (U) ORGANISM ID: 1 >=100,000 CFU/ml Escherichia coli ORGANISM ID: 1 (ESCHERICHIA COLI) --------- ANTIBIOTIC INTERPRETATION ALONSO STATUS REFERENCE RANGE --------- Ampicillin S 8 F Susceptible <=8 , Intermediate >8 , Resistant >16 Cefazolin S <=4 F Susceptible 0-16 , Intermediate <0 or >16 , Resistant >16 For uncomplicated urinary tract infections, cefazolin results can be used to predict susceptibility or resistance to cephalexin. Ceftriaxone S <=1 F Susceptible <=1 , Intermediate >1 , Resistant >=4 Cefepime S <=1 F Susceptible <=2 , Susceptible-Dose Dependent >2 , Resistant >=16 Ertapenem S <=0.5 F Susceptible <=0.5 , Intermediate >.5 , Resistant >1 Meropenem S <=0.25 F Susceptible <=1 , Intermediate >1 , Resistant >2 Ampicillin/Sulbact S <=2 F Susceptible <=8 , Intermediate >8 , Resistant >16 Piperacillin/Tazobac S <=4 F Susceptible <16 , Susceptible-Dose Dependent >=16 , Resistant >=32 Gentamicin S <=1 F Susceptible <=2 , Intermediate >2 , Resistant >=8 Tobramycin S <=1 F Susceptible <4 , Intermediate >=4 , Resistant >=8 Trimeth sulfameth S <=20 F Susceptible <=40 , Resistant >40 Ciprofloxacin I 0.5 F Susceptible <0.5 , Intermediate >=.5 , Resistant >=1 Nitrofurantoin S <=16 F Susceptible <=32 , Intermediate >32 , Resistant >64 Abnormal [facility] Comment on above: Performed By: #### 2 4356-8, 630-4 ####[facility] [id number] [place] [id number] [place] CNOVon 04-05-2024 CNOV Office Visit (FAMPWS ) BEHZAD HAY ([id number]) 1940 F Date Time Provider Department 04/05/24 3:20 PM TASHA DEUTSCH During your visit today, we recorded the following information about you: Temperature Pulse Respiration Blood pressure 97.2 degrees 75/minute 16/minute 162/84 Weight 54 kg Tasha Deutsch APRN.CNP 04/05/2024 3:44 PM Signed This is a 84 year old female who presents today with: Patient presents with: Acute Visit: Head congestion 2-3 weeks HISTORY OF PRESENT ILLNESS: Behzad Hay is a 84 year old female. Patient presents with: Acute Visit: Head congestion 2-3 weeks Head congestion and sinus pressure. Blows nose and yellow drainage. Took cold pills. Very tired today No fever or chills. No headache. Feels very tired. No body aches. Having incontinence- losing control- urgency PAST MEDICAL HISTORY: PAST MEDICAL HISTORY Diagnosis Date Abnormal CT of the abdomen 01/24/2014 localized perihepatic fluid indeterminate, 4mm density too small for ID, fusiforma sortic ectasia Anemia Arthritis Cerebral degeneration (HCC) Collagenous colitis Degenerative lumbar disc Dyslipidemia GERD (gastroesophageal reflux disease) H/O colonoscopy 09/23/2014 small internal hemorrhoids otherwise WNL. No further surveillance recommended Hiatal hernia History of esophagogastroduodenoscopy (EGD) 09/23/2014 [facility]: All normal HTN (hypertension) Hyperlipidemia, mixed Osteoarthritis Osteopenia PUD (peptic ulcer disease) 2013 Vitamin D deficiency PAST SURGICAL HISTORY Procedure Laterality Date BUNIONECTOMY, LAPIDUS-TYPE Left 03/30/2007 Dr. Beltran BUNIONECTOMY, LAPIDUS-TYPE Right 03/30/2008 Dr. Beltran CATARACT EXTRACTION W/ INTRAOCULAR LENS IMPLANT HX Left 03/31/2003 Dr. Sosa COLONOSCOPY 09/23/2014 colonoscopy Samara Rodarte internal hemorrhoids, otherwise WNL COLONOSCOPY FLX DX W/COLLJ SPEC WHEN PFRMD 09/01/[address] ABDOMEN AND PELVIS W/CONT 01/24/2014 localized yan hepatic unclear etiology, inflammatory vs metastatic disease; EGD 09/23/2014 Dr. Zoe Diana Normal esophagus, z-line, stomach and duodenum ESOPHAGOGASTRODUODENOSCOPY TRANSORAL DIAGNOSTIC 09/01/2020 EYE SURGERY HX INCISE FINGER TENDON SHEATH Right 12/26/2016 Right ring trigger finger release JOINT REPLACEMENT HX LAP UMBILICAL HERNIA REPAIR 02/24/2014 Umbilical hernia repair REMOVE CATARACT, INSERT LENS,EX Right REMV CATARACT EXTRACAP,INSERT LENS Right 03/31/2003 REMV CATARACT EXTRACAP,INSERT LENS Left 02/17/2003 REVJ TOT HIP ARTHRP BTH W/WO AGRFT/ALGRFT Right 05/30/2011 ROTATOR CUFF REPAIR Right 2013 R rotator cuff repair TONSILLECTOMY HX TONSILLECTOMY PRIMARY/SECONDARY Tonsillectomy TOTAL HIP JOINT REPLACEMENT Left 10/03/2014 ALLERGIES Adhesive Tape (Rosins), Bactrim [Sulfamethoxazole-Trimethop rim], Macrobid [Nitrofurantoin Monohyd/M-Cryst], and Jbuwciq-Iid-Ecy Reductase Inhibitors MEDICATIONS Current Outpatient Medications Medication Sig cyanocobalamin (VITAMIN B-12) 1,000 mcg tab Take 1,000 mcg by mouth once daily. acetaminophen (TYLENOL EXTRA STRENGTH) 500 mg tablet Take 2 tablets by mouth two times a day as needed for pain. lisinopril (ZESTRIL) 30 mg tablet Take 1 tablet by mouth once daily. TURMERIC ORAL Take by mouth. CAPSICUM, CAYENNE, ORAL Take by mouth. ascorbic acid/bioflavonoids (JENNIE C ORAL) Take by mouth. FLAXSEED OIL ORAL Take by mouth. GARLIC ORAL Take by mouth. Magnesium 250 mg tab Take 500 mg by mouth once daily. propylene glycol/peg 400 (SYSTANE ULTRA OPHTHALMIC) Use in eyes. Zinc 50 mg tab Take by mouth once daily. cranberry fruit extract (CRANBERRY ORAL) Take 650 mg by mouth once daily. LACTOBACILLUS ACIDOPHILUS (PROBIOTIC ACIDOPHILUS ORAL) Take by mouth. cholecalciferol (VITAMIN D3) 5,000 unit tab Take 5,000 Units by mouth once daily. multivitamin ORAL tablet Take 1 tablet by mouth once daily. estradiol (ESTRACE) 0.01 % (0.1 mg/gram) vaginal cream Apply pea-sized amount to perineum and 1 applicator vaginally Mon, Wed, Fri for atrophic vaginitis. No current facility-administered medications for this visit. FAMILY HISTORY Problem Relation Age of Onset Cancer Mother Hypertension Mother other (CVA) Mother age 86 Heart Father other (CVA) Father age 81 Ischemic Heart Disease Brother age 76 other (CVA) Brother other (ADMISSIONS COUNSELOR shunt) Brother Hypertension Sister Diabetes Sister age 66 (sepsis) Social History Tobacco Use Smoking status: Never Smokeless tobacco: Never Vaping Use Vaping status: Never Used Substance Use Topics Alcohol use: No Drug use: No EXAM: BP 162/84 Pulse 75 Temp 36.2 ?C (97.2 ?F) Resp 16 Wt 54 kg (119 lb) SpO2 96% BMI 22.12 kg/m? PHYSICAL EXAM: Physical Exam Tati (more content not included)... Normal [facility] Urinalysis complete panel (U )on 04-05-2024 Bacteria LM.HPF (Urine sed) [#/Area] Negative Normal Negative [facility] Comment on above: Order Comment: Speci men Type: URINE SPECIMENOrdering Facility: [facility] Address: [address] [place] [address] Performed By: #### 2 4356-8, 597-4 ####[facility] [id number] [place] [address] [place] Bilirubin Ql (U) Negative Normal Negative [facility] Comment on above: Order Comment: Speci men Type: URINE SPECIMENOrdering Facility: [facility] Address: [address] [place] [address] Performed By: #### 2 4356-8, 420-4 ####[facility] [id number] [place] [address] [place] Clarity (Unsp spec) Clear Normal Clear [facility] Comment on above: Order Comment: Speci men Type: URINE SPECIMENOrdering Facility: [facility] Address: [address] [place] [address] Performed By: #### 2 4356-8, 692-4 ####[facility] [id number] [place] [address] [place] Color (U) Yellow Normal Yellow [facility] Comment on above: Order Comment: Speci men Type: URINE SPECIMENOrdering Facility: [facility] Address: [address] [place] [address] Performed By: #### 2 4356-8, 630-4 ####[facility] [id number] [place] [address] [place] Epithelial cells LM.HPF (Urine sed) [#/Area] None Seen Normal [facility] Comment on above: Order Comment: Speci men Type: URINE SPECIMENOrdering Facility: [facility] Address: [address] [place] [address] Performed By: #### 2 4356-8, 630-4 ####[facility] [id number] [place] [address] [place] Glucose Test strip (U) [Mass/Vol] Negative Normal Negative [facility] Comment on above: Order Comment: Speci men Type: URINE SPECIMENOrdering Facility: [facility] Address: [address] [place] [address] Performed By: #### 2 4356-8, 630-4 ####[facility] [id number] [place] [address] [place] Hemoglobin Ql (U) Trace Abnormal Negative [facility] Comment on above: Order Comment: Speci men Type: URINE SPECIMENOrdering Facility: [facility] Address: [address] [place] [address] Performed By: #### 2 4356-8, 630-4 ####[facility] [id number] [place] [address] [place] Hyaline casts (Urine sed) [#/Area] 1-3 /LPF Abnormal 0 /LPF [facility] Comment on above: Order Comment: Speci men Type: URINE SPECIMENOrdering Facility: [facility] Address: [address] [place] [address] Performed By: #### 2 4356-8, 630-4 ####[facility] [id number] [place] [address] [place] Ketones Ql (U) Negative Normal Negative [facility] Comment on above: Order Comment: Speci men Type: URINE SPECIMENOrdering Facility: [facility] Address: [address] [place] [address] Performed By: #### 2 4356-8, 630-4 ####[facility] [id number] [place] [address] [place] Leukocyte esterase Test strip Ql (U) 3+ Abnormal Negative [facility] Comment on above: Order Comment: Speci men Type: URINE SPECIMENOrdering Facility: [facility] Address: [address] [place] [address] Performed By: #### 2 4356-8, 630-4 ####[facility] [id number] [place] [address] [place] Nitrite Ql (U) Negative Normal Negative [facility] Comment on above: Order Comment: Speci men Type: URINE SPECIMENOrdering Facility: [facility] Address: [address] [place] [address] Performed By: #### 2 4356-8, 710-4 ####[facility] [id number] [place] [address] [place] pH (U) 6.5 [pH] Normal <8.5 [facility] Comment on above: Order Comment: Speci men Type: URINE SPECIMENOrdering Facility: [facility] Address: [address] [place] [address] Performed By: #### 2 4356-8, 630-4 ####[facility] [id number] [place] [address] [place] Protein (U) [Mass/Vol] Negative Normal Negative [facility] Comment on above: Order Comment: Speci men Type: URINE SPECIMENOrdering Facility: [facility] Address: [address] [place] [address] Performed By: #### 2 4356-8, 630-4 ####[facility] LABIA [id number] [place] [address] [place] RBC LM.HPF (Urine sed) [#/Area] 0-2 /HPF Normal 0-2 /HPF [facility] Comment on above: Order Comment: Speci men Type: URINE SPECIMENOrdering Facility: [facility] Address: [address] [place] [address] Performed By: #### 2 4356-8, 630-4 ####[facility] [id number] [place] [address] [place] Specific gravity (U) [Rel density] 1.008 Normal 1.005-1.03 0 [facility] Comment on above: Order Comment: Speci men Type: URINE SPECIMENOrdering Facility: [facility] Address: [address] [place] [address] Performed By: #### 2 4356-8, 630-4 ####[facility] LABIA [id number] [place] [address] [place] Urobilinogen Ql (U) 0.2 EU/dL Normal 0.2-1.0 EU/dL [facility] Comment on above: Order Comment: Speci men Type: URINE SPECIMENOrdering Facility: [facility] Address: [address] [place] [address] Performed By: #### 2 4356-8, 630-4 ####[facility] [id number] [place] [address] [place] WBC LM.HPF (Urine sed) [#/Area] /[HPF] Abnormal 0-5 /HPF [facility] Comment on above: Order Comment: Speci men Type: URINE SPECIMENOrdering Facility: [facility] Address: [address] [place] [address] Performed By: #### 2 4356-8, 630-4 ####[facility] LABIA [id number] [place] [id number] [place] Large Joint Arthro/Inj: L kn ee jointon 08-18-2023 Tamia Quezada PA -C 08/18/2023 11:44 AM Large Joint Arthro/Inj: L knee joint Informed Consent Consent Obtained: Verbal [place] Protocol A moment to CARE was completed. SIGN IN Sign in communication not applicable due to emergent procedure. Personnel directly involved with the procedure wore the appropriate PPE. Special Equipment: N/A Patient/Surrogate Stated/Verified: Patient name, Date of , Relevant allergies and Intended procedure TIME OUT Intended patient and procedure match the source document(s). Consent documented and matches the intended procedure. Relevant labs, photos, and/or imaging studies have been reviewed. Correct side/site marked and visible. Medications required for procedure verified. No fire risk assessment and interventions applicable. No implant(s) inserted. 08/18/2023 11:44 AM The procedure site was prepped in the usual sterile fashion. Site: L knee joint Medications: 20 mg sodium hyaluronate 10 mg/mL(mw 2.4 -3.6 million) Outcome: Tolerated well, no immediate complications Post-injection instructions were reviewed with the patient and the patient voiced understanding of these instructions. SIGN OUT No instruments, equipment or retained foreign bodies applicable. [facility] Basic metabolic 2000 panelon 08-15-2023 Anion gap [Moles/Vol] 10 mmol/L 9 - 18 mmol/L [facility] Calcium [Mass/Vol] 10.0 mg/dL 8.5 - 10. 2 mg/dL [facility] Chloride [Moles/Vol] 104 mmol/L 97 - 10 5 mmol/L [facility] CO2 [Moles/Vol] 26 mmol/L 22 - 30 mmol/L [facility] Creatinine [Mass/Vol] 0.81 mg/dL 0.58 - 0.96 mg/dL [facility] GFR/1.73 sq M.predicted among non-blacks MDRD (S/P/Bld) [Vol rate/Area] 71 mL/min/{1.73_m2} - PINF [facility] Comment on above: Estimated Glomerular Filtration Rate (eGFR) is calculated using the 2020 CKD-EPI creatinine equation. This equation utilizes serum creatinine, sex, and age as parameters. The creatinine assay has traceable calibration to isotope dilution-mass spectrometry. Refer to KDIGO guidelines for clinical interpretation. In patients with unstable renal function, e.g. those with acute kidney injury, the eGFR may not accurately reflect actual GFR. Glucose [Mass/Vol] 95 mg/dL 74 - 99 mg/dL [facility] Comment on above: The [place] Diab[employer] [place] Association (ADA) provides guidance for cutoff values for fasting glucose and random glucose. The ADA defines fasting as no caloric intake for at least 8 hours. Fasting plasma glucose results between 100 to 125 mg/dL indicate increased risk for diabetes (prediabetes). Fasting plasma glucose results greater than or equal to 126 mg/dL meet the criteria for diagnosis of diabetes. In the absence of unequivocal hyperglycemia, results should be confirmed by repeat testing. In a patient with classic symptoms of hyperglycemia or hyperglycemic crisis, random plasma glucose results greater than or equal to 200 mg/dL meet the criteria for diagnosis of diabetes. Reference: Standards of Medical Care in Diabetes 2016, [place] [employer]. Diabetes Care. 2016.39(Suppl 1). Interpretation and review of laboratory results Normal [facility] Potassium [Moles/Vol] 4.8 mmol/L 3.7 - 5.1 mmol/L [facility] Sodium [Moles/Vol] 140 mmol/L 136 - 144 mmol/L [facility] Urea nitrogen [Mass/Vol] 17 mg/dL 7 - 21 mg/dL [facility] Large Joint Arthro/Inj: L kn ee jointon 08-11-2023 Tamia Quezada PA -C 08/11/2023 1:25 PM Large Joint Arthro/Inj: L knee joint Informed Consent Consent Obtained: Verbal [place] Protocol A moment to CARE was completed. SIGN IN Sign in communication not applicable due to emergent procedure. Personnel directly involved with the procedure wore the appropriate PPE. Special Equipment: N/A Patient/Surrogate Stated/Verified: Patient name, Date of , Relevant allergies and Intended procedure TIME OUT Intended patient and procedure match the source document(s). Consent documented and matches the intended procedure. Relevant labs, photos, and/or imaging studies have been reviewed. Correct side/site marked and visible. Medications required for procedure verified. No fire risk assessment and interventions applicable. No implant(s) inserted. 08/11/2023 1:24 PM The procedure site was prepped in the usual sterile fashion. Site: L knee joint Medications: 20 mg sodium hyaluronate 10 mg/mL(mw 2.4 -3.6 million) Outcome: Tolerated well, no immediate complications Post-injection instructions were reviewed with the patient and the patient voiced understanding of these instructions. SIGN OUT No instruments, equipment or retained foreign bodies applicable. [facility] Large Joint Arthro/Inj: L kn ee jointon 08-04-2023 Tamia Quezada PA -C 08/04/2023 11:37 AM Large Joint Arthro/Inj: L knee joint Informed Consent Consent Obtained: Verbal [place] Protocol A moment to CARE was completed. SIGN IN Sign in communication not applicable due to emergent procedure. Personnel directly involved with the procedure wore the appropriate PPE. Special Equipment: N/A Patient/Surrogate Stated/Verified: Patient name, Date of , Relevant allergies and Intended procedure TIME OUT Intended patient and procedure match the source document(s). Consent documented and matches the intended procedure. Relevant labs, photos, and/or imaging studies have been reviewed. Correct side/site marked and visible. Medications required for procedure verified. No fire risk assessment and interventions applicable. No implant(s) inserted. 08/04/2023 11:36 AM The procedure site was prepped in the usual sterile fashion. Site: L knee joint Medications: 20 mg sodium hyaluronate 10 mg/mL(mw 2.4 -3.6 million) Outcome: Tolerated well, no immediate complications Post-injection instructions were reviewed with the patient and the patient voiced understanding of these instructions. SIGN OUT No instruments, equipment or retained foreign bodies applicable. [facility] UA DIP, URINE (POC)on 2023 BILIRUBIN UA (POCT) Negative Negative [facility] CLARITY UA (POCT) Clear [facility] COLOR UA (POCT) Yellow [facility] GLUCOSE UA (POCT) Negative Negative mg/dL [facility] Hemoglobin Ql (U) Trace-intact Abnormal Negative [facility]re [facility] KETONE UA (POCT) Negative Negative mg/dL [facility] LEUKOCYTES UA (POCT) Small Abnormal Negative [facility] NITRITE UA (POCT) [facility] PH UA (POCT) 5.5 4.5 - 8.0 [facility] Protein Ql (U) Negative Negative mg/dL [facility] SPECIFIC GRAVITY UA (POCT) 1.010 1.005 - 1.030 [facility] UROBILINOGEN UA (POCT) 0.2 E.U./dL Normal E.U./dL [facility] XR Knee - left [address] [facility] [address] Head WO contraston 2023 [facility] XR Shoulder - right 2 Viewso n 04-04-2023 IMPRESSION: Findings are suggestive of degenerative changes in the right shoulder, with rotator cuff arthropathy. Patient Carrier: PSCB Transcribe Date/Time: Apr 04 2023 3:23P Dictated by : LILIAM ERIC MD This examination was interpreted and the report reviewed and electronically signed by: LILIAM ERIC MD on Apr 04 2023 3:27PM [facility] DIVISION OF RADIOLOGY * * *Final Report* * * DATE OF EXAM: Mar 31 2023 11:57AM WOX [id number] - XR SHOULDER 2V AP/TRUE AP RT / PROCEDURE REASON: Acute pain of right shoulder * * * * Physician Interpretation * * * * EXAM TITLE: XR SHOULDER 2V AP/TRUE AP RT EXAM DATE/TIME: 03/31/2023 11:57 AM COMPARISON: X-ray shoulder on 09/05/2016 CLINICAL INDICATION/HISTORY: Right shoulder pain TECHNIQUE: AP and true AP views of the right shoulder are presented FINDINGS: No acute fractures or subluxations are noted. Acromioclavicular joint space narrowing is visualized, with mild osteophyte formation. The glenohumeral joint space appears maintained however osteophyte formation is present. There are hypertrophic degenerative changes in the greater tuberosity, with cystic components. There is decreased acromiohumeral interval. The bones appear somewhat osteopenic. There are supraspinatus tendon calcifications. DIVISION OF RADIOLOGY Provider, [facility] - 04/04/2023 * * *Final Report* * * DATE OF EXAM: Mar 31 2023 11:57AM WOX [id number] - XR SHOULDER 2V AP/TRUE AP RT / PROCEDURE REASON: Acute pain of right shoulder * * * * Physician Interpretation * * * * EXAM TITLE: XR SHOULDER 2V AP/TRUE AP RT EXAM DATE/TIME: 03/31/2023 11:57 AM COMPARISON: X-ray shoulder on 09/05/2016 CLINICAL INDICATION/HISTORY: Right shoulder pain TECHNIQUE: AP and true AP views of the right shoulder are presented FINDINGS: No acute fractures or subluxations are noted. Acromioclavicular joint space narrowing is visualized, with mild osteophyte formation. The glenohumeral joint space appears maintained however osteophyte formation is present. There are hypertrophic degenerative changes in the greater tuberosity, with cystic components. There is decreased acromiohumeral interval. The bones appear somewhat osteopenic. There are supraspinatus tendon calcifications. IMPRESSION IMPRESSION: Findings are suggestive of degenerative changes in the right shoulder, with rotator cuff arthropathy. Patient Carrier: PSCB Transcribe Date/Time: Apr 04 2023 3:23P Dictated by : LILIMA ERIC MD This examination was interpreted and the report reviewed and electronically signed by: LILIAM ERIC MD on Apr 04 2023 3:27PM EST [facility] XR Shoulder - right 2 ViewsO rdered By: [facility] Provider on 04-04-2023 [facility] XR Shoulder - right 2 Viewso n 03-31-2023 Radiology Study observation (narrative) [facility] CBC panel Auto (Bld)on 10-11 Erythrocyte distribution width (RBC) [Ratio] 13.4 % 11.5 - 15.0 % [facility] Hematocrit (Bld) [Volume fraction] 40.4 % 36.0 - 46.0 % [facility] Hemoglobin (Bld) [Mass/Vol] 12.7 g/dL 11.5 - 15.5 g/dL [facility] MCH (RBC) [Entitic mass] 31.5 pg 26.0 - 34.0 pg [facility] MCHC (RBC) [Mass/Vol] 31.4 g/dL 30.5 - 36.0 g/dL [facility] MCV (RBC) [Entitic vol] 100.2 fL High 80.0 - 100.0 fL [facility] Nucleated RBC (Bld) [#/Vol] <0.01 k/uL [facility] Platelet mean volume (Bld) [Entitic vol] 9.3 fL 9.0 - 12.7 fL [facility] Platelets (Bld) [#/Vol] 351 10*3/uL 150 - 400 k/uL [facility] RBC (Bld) [#/Vol] 4.03 10*6/uL 3.90 - 5.20 m/uL [facility] WBC (Bld) [#/Vol] 5.97 10*3/uL 3.70 - 11.00 k/uL [facility] Comprehensive metabolic 2000 panelon 10-11-2022 Albumin [Mass/Vol] 4.2 g/dL 3.9 - 4.9 g/dL [facility] ALP [Catalytic activity/Vol] 83 U/L 34 - 123 U/L [facility] ALT [Catalytic activity/Vol] 19 U/L 7 - 38 U/L [facility] Anion gap [Moles/Vol] 9 mmol/L 9 - 18 mmol/L [facility] AST [Catalytic activity/Vol] 22 U/L 13 - 35 U/L [facility] Bilirubin [Mass/Vol] 0.2 mg/dL 0.2 - 1 .3 mg/dL [facility] Calcium [Mass/Vol] 9.9 mg/dL 8.5 - 10. 2 mg/dL [facility] Chloride [Moles/Vol] 104 mmol/L 97 - 10 5 mmol/L [facility] CO2 [Moles/Vol] 30 mmol/L 22 - 30 mmol/L [facility] Creatinine [Mass/Vol] 0.90 mg/dL 0.58 - 0.96 mg/dL [facility] Estimated Glomerular Filtration Rate 63 mL/min/1.73m >=60 mL/min/1.7 3m [facility] Glucose [Mass/Vol] 99 mg/dL 74 - 99 mg/dL [facility] Potassium [Moles/Vol] 4.9 mmol/L 3.7 - 5.1 mmol/L [facility] Protein [Mass/Vol] 6.4 g/dL 6.3 - 8.0 g/dL [facility] Sodium [Moles/Vol] 143 mmol/L 136 - 144 mmol/L [facility] Urea nitrogen [Mass/Vol] 16 mg/dL 7 - 21 mg/dL [facility] FERRITIN BLDon 10-11-2022 Ferritin [Mass/Vol] 46.0 ng/mL 14.7 - 205.1 ng/mL [facility] Iron and Iron binding capaci ty panelon 10-11-2022 Iron [Mass/Vol] 69 ug/dL 41 - 186 ug/dL [facility] Iron binding capacity [Mass/Vol] 322 ug/dL 232 - 386 ug/dL [facility] Iron/TIBC [Molar ratio] 21.4 % 15.0 - 57.0 % [facility] Lipid 1996 panelon Cholesterol [Mass/Vol] 241 mg/dL High <200 mg/dL [facility] Cholesterol in HDL [Mass/Vol] 72 mg/dL >39 mg/dL [facility] Cholesterol in LDL [Mass/Vol] 140 mg/dL High <100 mg/dL [facility] Cholesterol in LDL/Cholesterol in HDL [Mass ratio] 1.94 {ratio} <2.54 [facility] Cholesterol in VLDL [Mass/Vol] 29 mg/dL <30 mg/dL [facility] Cholesterol non HDL [Mass/Vol] 169 mg/dL High <130 mg/dL [facility] Cholesterol.total/Cho lesterol in HDL [Mass ratio] 3.35 {ratio} <5.10 [facility] Fasting Time 14 hrs [facility] Triglyceride [Mass/Vol] 146 mg/dL <150 mg/dL [facility] MAGNESIUM Don 10-11-2022 Magnesium [Mass/Vol] 2.3 mg/dL 1.7 - 2 .3 mg/dL [facility] PTH INTACT BLDon 10-11-2022 Parathyrin.intact [Mass/Vol] 36 pg/mL 15 - 65 pg/mL [facility] VITAMIN D 25 HYDROXYon 10-11 25-hydroxyvitamin D3 [Mass/Vol] 65.1 ng/mL 31.0 - 80.0 ng/mL [facility] ECHOon 04-16-2022 [facility] ESR Westergren method (Bld) [Velocity]on 04-12-2022 ESR (Bld) [Velocity] 31 mm/h High 0 - 20 mm/hr [facility] FERRITIN BLDon 04-12-2022 Ferritin [Mass/Vol] 65.8 ng/mL 14.7 - 205.1 ng/mL [facility] Iron and Iron binding capaci ty panelon 04-12-2022 Iron [Mass/Vol] 79 ug/dL 41 - 186 ug/dL [facility] Iron binding capacity [Mass/Vol] 360 ug/dL 232 - 386 ug/dL [facility] Iron/TIBC [Molar ratio] 21.9 % 15.0 - 57.0 % [facility] Absolute lymphocyte counton 04-07-2022 Lymphocytes Auto (Unsp spec) [#/Vol] 1.40 10*3/uL 0.83-4.51 [facility] Work Phone: Basophil percentageon 2021 Basophils/100 WBC (Bld) 1.1 % 0-1 [facility] Work Phone: Chloride [Moles/Vol] 107 mmol/L 98-107 [facility] Work Phone: Eosinophils/100 WBC (Bld) 1.9 % 0-5 [facility] Work Phone: Glucose [Mass/Vol] 133 mg/dL 74-106 [facility] Work Phone: Comment on above: Fasting Glucose resu lt greater than or equal to 126 mg/dL suggests DIABETES MELLITUS per A.D.A. criteria. Neutrophils (Bld) [#/Vol] 7.1 10*3/uL 2.0-7.7 [facility] Work Phone: Neutrophils/100 WBC (Bld) 74.4 % 47-70 [facility] Work Phone: Potassium [Moles/Vol] 3.9 mmol/L 3.5-5.1 [facility] Work Phone: Sodium [Moles/Vol] 142 mmol/L 136-145 [facility] Work Phone: WBC (Bld) [#/Vol] 9.5 10*3/uL 4.4-11.0 [facility] Work Phone: Blood erythrocytes count (nu mber/volume)on 04-07-2022 RBC (Bld) [#/Vol] 4.16 10*6/uL 4.2-5.4 [facility] Work Phone: Blood hemoglobin measurement (mass/volume)on 04-07-2022 Hemoglobin (Bld) [Mass/Vol] 13.6 g/dL 12.0-15.0 [facility] Work Phone: Blood lymphocytes/100 leukoc yteson 04-07-2022 Lymphocytes/100 WBC (Bld) 14.7 % 19-41 [facility] Work Phone: [phone] Blood monocytes/100 leukocyt eson 04-07-2022 Monocytes/100 WBC (Bld) 7.6 % 0-10 [facility] Work Phone: [phone] Blood platelet mean volumeon 04-07-2022 Platelet mean volume (Bld) [Entitic vol] 8.6 fL 6.2-12.0 [facility] Work Phone: [phone] Determination of erythrocyte mean corpuscular volume (MCV)on 04-07-2022 MCV (RBC) [Entitic vol] 97.8 fL 81-99 [facility] Work Phone: [phone] Hematocrit Auto (Bld) [Volum e fraction]on 04-07-2022 Hematocrit (Bld) [Volume fraction] 40.7 % 37-47 [facility] Work Phone: [phone] Laboratory - Chemistry and C hemistry - challengeon 04-07-2022 CO2 [Moles/Vol] 30.0 mmol/L 21.0-32.0 [facility] Work Phone: [phone] Urea nitrogen/Creatinine [Mass ratio] 18.8 mg/mg 10-20 [facility] Work Phone: [phone] Laboratory - Hematology and Cell countson 04-07-2022 Erythrocyte distribution width (RBC) [Entitic vol] 44.9 fL 35.1-43.9 [facility] Work Phone: [phone] Erythrocyte distribution width (RBC) [Ratio] 12.4 % 11.6-14.6 [facility] Work Phone: [phone] Immature granulocytes/100 WBC (Bld) 0.300 % 0.0-0.9 [facility] Work Phone: [phone] Comment on above: IG% - Immature Granu locytes (promyelocytes, myelocytes and metamyelocytes) > 1% indicates that a LEFT SHIFT is Present. MCH (RBC) [Entitic mass] 32.7 pg 27.0-32.0 [facility] Work Phone: [phone] Nucleated RBC/100 WBC (Bld) [Ratio] 0 % 0-5 [facility] Work Phone: [phone] MCHC Auto (RBC) [Mass/Vol]on 04-07-2022 MCHC (RBC) [Mass/Vol] 33.4 g/dL 32-36 [facility] Work Phone: No Panel Informationon 04-07 Estimated Creatinine Clearance Calc 29.78 ml/min [facility] Work Phone: [phone] Estimated GFR (MDRD) Amer 67 mL/min >60 [facility] Work Phone: [phone] Comment on above: GFR Calc Estimated GFR (MDRD) Non-Af Amer 56 mL/min >60 [facility] Work Phone: [phone] Comment on above: Non- GFR Calc Thyroid Stimulating Hormone (TSH) 1.51 uIU/mL 0.358-3.74 [facility] Work Phone: [phone] Troponin I High Sensitivity 16 pg/mL 3.0-54.0 [facility] Work Phone: [phone] Comment on above: Please Note: [place] t Units and Gender Specific Reference Ranges. For more information see Policy Stat Procedure [place] High Sensitivity Troponin (TNIH) and attachments. Platelets bldon 04-07-2022 Platelets (Bld) [#/Vol] 305 10*3/uL 150-450 [facility] Work Phone: [phone] Serum or plasma calcium camilo urement (mass/volume)on 04-07-2022 Calcium [Mass/Vol] 8.9 mg/dL 8.5-10.1 [facility] Work Phone: [phone] Serum or plasma creatinine m easurement (mass/volume)on 04-07-2022 Creatinine [Mass/Vol] 1.01 mg/dL 0.55-1.02 [facility] Work Phone: [phone] Comment on above: The validity of the calculated GFR & GFRAA in patients over 70 years has not been determined. Clinical correlation is essential. Serum or plasma urea nitroge n measurement (mass/volume)on 04-07-2022 Urea nitrogen [Mass/Vol] 19 mg/dL 7-18 [facility] Work Phone: Thin prep Papanicolaou smear with manual screeningon 04-07-2022 Thin prep Papanicolaou smear with manual screening 5 5-15 [facility] Work Phone: Clinical Summary: Suman ibarra 06-22-2021 75 OP Visit Invalid Interpretation Code [facility] [place] [facility] Work Phone: No Panel Informationon 06-13 Radiology Study observation (narrative) [facility] XR Femur - left AP and Later imelda 06-13-2021 IMPRESSION: No acute process is seen. Degenerative changes of the left knee. Patient Carrier: STAN Transcribe Date/Time: Jun 13 2021 3:45P Dictated by : ENDER OHARA MD This examination was interpreted and the report reviewed and electronically signed by: ENDER OHARA MD on Jun 13 2021 3:47PM [facility] DIVISION OF RADIOLOGY * * *Final Report* * * DATE OF EXAM: Jun 13 2021 3:22PM WOX [id number] - XR FEMUR 2V AP/LAT LT / PROCEDURE REASON: Left thigh pain * * * * Physician Interpretation * * * * History: Left thigh pain FINDINGS: 4 views of the left femur have been obtained. Patient has had prior placement of total left hip arthroplasty, hardware intact and alignment satisfactory. No evidence of periprosthetic lucency or acute bony abnormality is seen. Partially visualized knee demonstrates narrowing of the femoral-tibial joint space more pronounced laterally with associated spurring suspected. Femoral patellar joint space narrowing and spurring. DIVISION OF RADIOLOGY Provider, [facility] - 06/13/2021 * * *Final Report* * * DATE OF EXAM: Jun 13 2021 3:22PM WOX [id number] - XR FEMUR 2V AP/LAT LT / PROCEDURE REASON: Left thigh pain * * * * Physician Interpretation * * * * History: Left thigh pain FINDINGS: 4 views of the left femur have been obtained. Patient has had prior placement of total left hip arthroplasty, hardware intact and alignment satisfactory. No evidence of periprosthetic lucency or acute bony abnormality is seen. Partially visualized knee demonstrates narrowing of the femoral-tibial joint space more pronounced laterally with associated spurring suspected. Femoral patellar joint space narrowing and spurring. IMPRESSION IMPRESSION: No acute process is seen. Degenerative changes of the left knee. Patient Carrier: STAN Transcribe Date/Time: Jun 13 2021 3:45P Dictated by : ENDER OHARA MD This examination was interpreted and the report reviewed and electronically signed by: ENDER OHARA MD on Jun 13 2021 3:47PM EST [facility] XR Pelvis and Hip - left AP and Lateral frogon 06-13-2021 IMPRESSION: LEFT total hip arthroplasty without complication. Patient Carrier: [facility] Transcribe Date/Time: Jun 13 2021 3:46P Dictated by : ZEN HANSON DO This examination was interpreted and the report reviewed and electronically signed by: ZEN HANSON DO on Jun 13 2021 3:49PM EST DIVISION OF RADIOLOGY * * *Final Report* * * DATE OF EXAM: Jun 13 2021 3:22PM WOX [id number] - XR HIP 3V PELV+ AP/LAT LT / PROCEDURE REASON: Left thigh pain * * * * Physician Interpretation * * * * EXAMINATION: XR HIP 3V PELV+ AP/LAT LT PATIENT/TECHNOLOGIST PROVIDED HISTORY: pt fell over a week ago, left sided hip and femur area pain CLINICAL INFORMATION: 81 years old Female with Left thigh pain TECHNIQUE: XR HIP 3V PELV+ AP/LAT LT Laterality: LEFT Number of different views (projections): 3 COMPARISON: Radiographs 10/02/2019 RESULT: Status post LEFT total hip arthroplasty. Hardware is intact and in satisfactory alignment and position without evidence of loosening or failure. No periprosthetic fracture. Partially assessed intact appearing RIGHT total hip arthroplasty. Incompletely assessed degenerative changes lower lumbar spine. Degenerative changes at the pubic symphysis with sclerosis. Sacroiliac joints are symmetric and maintained. Arteriolosclerosis. DIVISION OF RADIOLOGY [facility] * * *Final Report* * * DATE OF EXAM: Jun 13 2021 3:22PM WOX 5351 - XR HIP 3V PELV+ AP/LAT LT / PROCEDURE REASON: Left thigh pain * * * * Physician Interpretation * * * * EXAMINATION: XR HIP 3V PELV+ AP/LAT LT PATIENT/TECHNOLOGIST PROVIDED HISTORY: pt fell over a week ago, left sided hip and femur area pain CLINICAL INFORMATION: 81 years old Female with Left thigh pain TECHNIQUE: XR HIP 3V PELV+ AP/LAT LT Laterality: LEFT Number of different views (projections): 3 COMPARISON: Radiographs 10/02/2019 RESULT: Status post LEFT total hip arthroplasty. Hardware is intact and in satisfactory alignment and position without evidence of loosening or failure. No periprosthetic fracture. Partially assessed intact appearing RIGHT total hip arthroplasty. Incompletely assessed degenerative changes lower lumbar spine. Degenerative changes at the pubic symphysis with sclerosis. Sacroiliac joints are symmetric and maintained. Arteriolosclerosis. IMPRESSION IMPRESSION: LEFT total hip arthroplasty without complication. Patient Carrier: STAN Transcribe Date/Time: Jun 13 2021 3:46P Dictated by : ZEN HANSON DO This examination was interpreted and the report reviewed and electronically signed by: ZEN HANSON DO on Jun 13 2021 3:49PM [facility] XR Pelvis and Hip - left AP and Lateral frogOrdered By: [facility] Provider on 06-13-2021 [facility] CNTHERAPYon 11-12-2016 CNTHERAPY OT/PT/Speech Visit ([facility]) ------BEHZAD HAY ([id number]) 1940 FDate Time Provider Department11/12/16 12:45 PM OSVALDO MUELLER (OT) [facility]Encounter Number: [id number] Time Provider Department [place]11/12/2016 12:45 PM [id number] MUELLER *[facility] Chrismichele Sargent for Visit: Occupational Therapy [504]Primary Visit Diagnosis:Spontaneous rupture of extensor tendon of left hand [M66.242]Allergies As of Date: 11/12/2016 Noted Allergy ReactionADHESIVE TAPE (ROSINS) 08/27/2011 2 - IsvoHWWQLAP-FNJ-HWT REDUCTASE INHIBIT*10/06/2014 5 - IntoleranceDate Reviewed: 09/23/2016Reviewed by: Aida Narayanan Ma - Fully AssessedPrescriptions as of 11/12/2016 Sig: ETODOLAC 400 MG TABLET Take 1 tablet by mouth twice * ASPIRIN 81 MG TABLET,DELAYED * Take 1 tablet by mouth once d* VITAMIN E 400 UNIT CAPSULE Take 1 capsule by mouth once * CYANOCOBALAMIN (VIT B-12) 2,5* Dissolve 1 tablet under the t* [id number]-[id number]-FNO C-M* Take 1 capsule by mouth three* FLAXSEED OIL 1,000 MG CAPSULE Take 1 capsule by mouth once * GARLIC 300 MG CAPSULE Take 300 mg by mouth once jorge* BUDESONIDE DR - ER 3 MG CAPSU* Take 2 capsules by mouth once* TRIAMTERENE 37.5 MG-HYDROCHLO* Take 1 capsule by mouth once * DOCUSATE SODIUM 100 MG CAPSULE Take 1 capsule by mouth twice* HYDROCODONE 5 MG-ACETAMINOPHE* Take 1-2 tablets by mouth genesis* LACTOBACILLUS ACIDOPH AND BIFID* Take 1 capsule by mouth once * CALCIUM CARBONATE,CITRATE-MAG* Take 1 tablet by mouth three * OMEPRAZOLE 20 MG CAPSULE,MINDY* Take 20 mg by mouth once tano* FERROUS SULFATE 325 MG (65 MG* Take 325 mg by mouth once jorge* CHOLECALCIFEROL (VITAMIN D3) * Take 5,000 Units by mouth onc* * ASCORBIC ACID (VITAMIN C) ER * Take by mouth once daily. * CHOLESTYRAMINE (WITH SUGAR) 4* Take 4 g by mouth three times* * FOLIC ACID-VITAMIN B6-VIT B12* Take 1 tablet by mouth once d* * MULTIVITAMIN TABLET Take 1 tablet by mouth once d*Progress Notes:JOSÉ Tucker 11/12/2016 1:33 PM Betzaida [id number] 2016[facility] HAND AND UPPER EXTREMITY TREATMENT NOTEGENERAL RECORD INFORMATION:CURRENT VISIT NUMBER: 2 of 3 visits per current plan of careONSET:07/11/20161st:09/28Cert Date:10/17/2016THERAPISTS NAME: Osvaldo Mueller OT/Filippo,CHTINSURANCE TYPE: Payor: MEDICARE / Plan: MEDICARE A AND B / Product Type:Medicare /REFERRING PROVIDER: Tamia Quezada),RELEVANT INFORMATION: Mechanism of Injury: pt hit hand with dog leash.;Prescription present in Epic.OT ORDERS: Relative extenson splint ?for left middle, MCPPLAN OF CARE ESTABLISHED: 10/17/2016Additional Plan of Care information: Recertification due 01/11/2017.Patient identified by name and date: YesGoals to be updated on: 11/17/2016SUBJECTIVE: Patient reports she has not been wearing the splint a lot because ithas been uncomfortablePain/Symptom(s ): none- Current Status: unchanging- Functional Limitations: lifting and carrying with left hand- Subjective Functional Improvements: none reported today- Home Program: splintingOBJECTIVE MEASURES:Patient with subluxation noted in MCP with firm fistingTREATMENT:OT fabricated custom orthosis: hand yoke splint [id number] custom (fingersonly/ mallet/ tip protector/ other) Proof of Delivery Provided: yes. Customorthosis to provide Pt practiced orthosis application, donning on/off whileunder OT's supervision. and to promote healing. Patient was instructed in itswearing schedule except to bathe. Skilled Intervention: Clinical knowledge andskills required for custom orthotic fabrication and wearing scheduleAdded padding and cotton sleeve for fingers to provided better positioning andmore comfortPost Treatment Pain/Symptoms: noneASSESSMENT: Pt with better fit and comfort, so compliance should improvePLAN:Plan for next treatment session: upgrade to AROMre-assess orthosis fit and comfort progress to strengthening and functionalactivities as able, progress reportBilling:[place]: hand splintTotal time: 30 minutesVerjudah Mueller OT/Filippo,CHT ------- Normal [facility] PROGRESSon 11-12-2016 PROGRESS HNO ID: [id number] thor: Osvaldo (Ina MuellerService: (none)Author Type: Occupational TherapistType: Progress NotesFiled: 11/12/2016 1:33 PMNote Text:Behzad [id number] 2016[facility] HAND AND UPPER EXTREMITY TREATMENT NOTEGENERAL RECORD INFORMATION:CURRENT VISIT NUMBER: 2 of 3 visits per current plan of careONSET:07/11/20161st:09/28Cert Date:10/17/2016THERAPISTS NAME: Osvaldo Mueller, LATASHA/L,CHTINSURANCE TYPE: Payor: MEDICARE / Plan: MEDICARE A AND B / ProductType: Medicare /REFERRING PROVIDER: Tamia Quezada),RELEVANT INFORMATION: Mechanism of Injury: pt hit hand with dog leash.;Prescription present in Epic.OT ORDERS: Relative extenson splint ?for left middle, MCPPLAN OF CARE ESTABLISHED: 10/17/2016Additional Plan of Care information: Recertification due 01/11/2017.Patient identified by name and date: YesGoals to be updated on: 11/17/2016SUBJECTIVE: Patient reports she has not been wearing the splint a lotbecause it has been uncomfortablePain/Symptom(s ): none- Current Status: unchanging- Functional Limitations: lifting and carrying with left hand- Subjective Functional Improvements: none reported today- Home Program: splintingOBJECTIVE MEASURES:Patient with subluxation noted in MCP with firm fistingTREATMENT:OT fabricated custom orthosis: hand yoke splint [id number] FO custom(fingers only/ mallet/ tip protector/ other) Proof of Delivery Provided: yes. Custom orthosis to provide Pt practiced orthosis application,donning on/off while under OT's supervision. and to promote healing.Patient was instructed in its wearing schedule except to bathe. SkilledIntervention: Clinical knowledge and skills required for custom orthoticfabrication and wearing scheduleAdded padding and cotton sleeve for fingers to provided better positioningand more comfortPost Treatment Pain/Symptoms: noneASSESSMENT: Pt with better fit and comfort, so compliance should improvePLAN:Plan for next treatment session: upgrade to AROMre-assess orthosis fit and comfort progress to strengthening andfunctional activities as able, progress reportBilling:Chris: hand splintTotal time: 30 minutesOsvaldo Mueller OT/L,CHT [facility] CNTHERAPYon 10-17-2016 CNTHERAPY [facility] ------TYLERBEHZAD JONES ([id number]) 1940 FDate Time Provider Department10/17/16 3:45 PM OSVALDO MUELLER (OT) [facility]Encounter Number: [id number] Time Provider Department [place]10/17/2016 3:45 PM [id number] MUELLER *[facility] CReason for Visit: OT EVAL [748]Primary Visit Diagnosis:Injury of extensor tendon of left hand, subsequent encounter [S66.902D] Other Visit Diagnosis:Spontaneous rupture of extensor tendon of left hand [M66.242]Allergies As of Date: 10/17/2016 Noted Allergy ReactionADHESIVE TAPE (ROSINS) 08/27/2011 2 - SpcmTUVMKWE-OPG-OTG REDUCTASE INHIBIT*10/06/2014 5 - IntoleranceDate Reviewed: 09/23/2016Reviewed by: Aida Narayanan Ma - Fully AssessedPrescriptions as of 10/17/2016 Sig: ETODOLAC 400 MG TABLET Take 1 tablet by mouth twice * ASPIRIN 81 MG TABLET,DELAYED * Take 1 tablet by mouth once d* VITAMIN E 400 UNIT CAPSULE Take 1 capsule by mouth once * CYANOCOBALAMIN (VIT B-12) 2,5* Dissolve 1 tablet under the t* MBBHFXGBHQY-IHMHHZMHC-KIQ C-M* Take 1 capsule by mouth three* FLAXSEED OIL 1,000 MG CAPSULE Take 1 capsule by mouth once * GARLIC 300 MG CAPSULE Take 300 mg by mouth once jorge* BUDESONIDE DR - ER 3 MG CAPSU* Take 2 capsules by mouth once* TRIAMTERENE 37.5 MG-HYDROCHLO* Take 1 capsule by mouth once * DOCUSATE SODIUM 100 MG CAPSULE Take 1 capsule by mouth twice* HYDROCODONE 5 MG-ACETAMINOPHE* Take 1-2 tablets by mouth genesis* LACTOBACILLUS ACIDOPH AND BIFID* Take 1 capsule by mouth once * CALCIUM CARBONATE,CITRATE-MAG* Take 1 tablet by mouth three * OMEPRAZOLE 20 MG CAPSULE,MINDY* Take 20 mg by mouth once tano* FERROUS SULFATE 325 MG (65 MG* Take 325 mg by mouth once jorge* CHOLECALCIFEROL (VITAMIN D3) * Take 5,000 Units by mouth onc* * ASCORBIC ACID (VITAMIN C) ER * Take by mouth once daily. * CHOLESTYRAMINE (WITH SUGAR) 4* Take 4 g by mouth three times* * FOLIC ACID-VITAMIN B6-VIT B12* Take 1 tablet by mouth once d* * MULTIVITAMIN TABLET Take 1 tablet by mouth once d*Progress Notes:JOSÉ Tucker 10/17/2016 4:37 PM SignedPR[facility] THERAPYOCCUPATIONAL THERAPY HAND EVALUATIONGENERAL RECORD INFORMATIONCURRENT VISIT NUMBER: 1 of 3 visits per current plan of careONSET:07/11/20161st:09/28Cert Date:10/17/2016THERAPISTS NAME: JOSÉ Tucker,CHTINSURANCE TYPE: Payor: MEDICARE / Plan: MEDICARE A AND B / Product Type:Medicare /REFERRING PROVIDER: Tamia Quezada),RELEVANT INFORMATION: Mechanism of Injury: pt hit hand with dog leash.;Prescription present in Epic.OT ORDERS: Relative extenson splint ?for left middle, MCP PLAN OF CARE ESTABLISHED: 10/17/2016Additional Plan of Care information: Recertification due 01/11/2017.Patient identified by name and date: Helen to be updated on: 11/17/2016SUBJECTIVE: Behzad Hay is a 76 year old right handed female that reportsleft long finger injuryPain/Symptoms: 0- 1Functional Limitations: fine motor tasks cutting foodPatient's Prior Level of Function: Patient reported: Independent withoutlimitations.Work Status: RetiredOccupation: naSocial: Lives with aloneHobbies / Interests: exercises classes 4 x week, gardeningPatient Goals: avoid having surgery in handPatient Reported Outcome Measures: [facility] [address] Daily Activity - AdaptedSee PT/OT Health Status belowPrevious treatment: NoneFalls Assessment: No positive results upon screening.Relevant medical history/ comorbidities:PAST MEDICAL HISTORYDiagnosis Date- Anemia- Collagenous colitis- Dyslipidemia- GERD (gastroesophageal reflux disease)- Hiatal hernia- HTN (hypertension)- Osteoarthritis- Osteopenia- PUD (peptic ulcer disease) 2014- Vitamin D deficiencyOBJECTIVE MEASURES WITH LEVEL OF FUNCTION:Vital Signs: NA/NTLeft UPPER EXTREMITYAROM as follows:Shoulder:WFLElbow:W FLWrist:WFLHand:Pt able to make full composite fistPt able to fully extend digitsThumb:WFLSkin:intactE faye:ModerateSensation:inta ct to light touch:Dexterity / Coordination:Observed to be WFL.Strength:[employer] Specials Strength: 2 RIGHT 25lbs. LEFT 25lbs.Functional Tests:Evidence of triggering: sagittal band injury, with subluxation of extensortendon"Boxer's knuckle"Education:Learning preferences: Explanation and DemonstrationBarriers: No barriersLearning/educationa l needs: Plan of careBrace FitEducation Provided: See Treatment BelowAudience: PatientMethod of education: Explanation and DemonstrationResponse: Applied knowledge and Demonstrated skillTREATMENT:EvaluationOT fabricated custom orthosis: relative extension splint L3933 FO custom(fingers only/ mallet/ tip protector/ other) Proof of Delivery Provided: yes.Custom orthosis to provide Pt practiced orthosis application, donning on/offwhile under OT's supervision. and to promote healing. Patient was instructed inits wearing schedule except to bathe. Skilled Intervention: Clinical knowledgeand skills required for custom orthotic fabrication and wearing scheduleSelf Care / Home Management: - Educated patient on diagnosis and role of OT andtreatment plan. Explained the need for gradual progression of program.- Instructed in ROM Activities: Instructed pt in AROM for hand digit flexion andextension with splint on. Pt completed exercise while in therapy today. SkilledIntervention: Skilled judgment in the selection of proper modification foractivity of daily living/home management based on clinical presentation,deficits, and needs.Post treatment Pain: nonePLAN OF CARE:Assessment: Behzad Hay presents with the chief complaint of pain andinstability of hand. She presents with impairments of motion and strength.She may benefit from skilled therapy services to improve function.Prognosis is Good due to current objective clinical presentationGoals for Episode of Care: created on 10/17/2016 through 01/11/2017Pt will report a good understanding of diagnosis and OT recommendations forprogression of programPatient will demonstrate independence with ongoing home exercise programPatient will independently demonstrate correct application of hand orthosis andverbalize understanding of proper wear/care by end of session.Planned Interventions, Frequency, and Duration: follow up as needed for splintadjustment and progression to active therapy prn after 6 weeksPlan for next treatment session: re-assess orthosis fit and comfortPatient demonstrates good understanding of plan of care and treatment. Theabove goals and plan of care were discussed and agreed upon by patient/family.G CODE REPORTING Score Current Goal Discharge AM-PAC Scale Score Carrying, Moving and Handling Objects: G8984 Carrying,Moving and Handling Objects: G8985 NAEvaluation10/17/2016 58 CJ 20-39% impaired CI 1-19% impaired NABased on clinical assessment and the score on the AM-PAC Scale Score AssessmentTool, the G code and corresponding severity modifiers are documented above.Billing: OT Services: Evaluation - Low Complexity ( 07375)Self Care / Home Management (00847): 1:1 time: 10 minutes (1 unit: 8-22 mins)Orthosis: Fabrication time for custom splint: 15 minutesCustom: L3933 FO custom (fingers only/ mallet/ tip protector/ other) Proofof Delivery Provided: yesTotal time: 40 minutesVerjudah Mueller OT/Filippo,T ------- [facility] PROGRESSon 10-17-2016 PROGRESS HNO ID: [id number] thor: Osvaldo Villalobos: (none)Author Type: Occupational TherapistType: Progress NotesFiled: 10/17/2016 4:37 PMNote Text:[facility] THER[facility]YOCCUPATIONAL THERAPY HAND EVALUATIONGENERAL RECORD INFORMATIONCURRENT VISIT NUMBER: 1 of 3 visits per current plan of careONSET:07/11/20161st:09/28Cert Date:10/17/2016THERAPISTS NAME: Osvaldo Mueller, OT/L,CHTINSURANCE TYPE: Payor: MEDICARE / Plan: MEDICARE A AND B / ProductType: Medicare /REFERRING PROVIDER: Tamia Quezada),RELEVANT INFORMATION: Mechanism of Injury: pt hit hand with dog leash.;Prescription present in Epic.OT ORDERS: Relative extenson splint ?for left middle, MCP PLAN OF CARE ESTABLISHED: 10/17/2016Additional Plan of Care information: Recertification due 01/11/2017.Patient identified by name and date: YesGoals to be updated on: 11/17/2016SUBJECTIVE: Behzad Hay is a 76 year old right handed female thatreports left long finger injuryPain/Symptoms: 0- 1Functional Limitations: fine motor tasks cutting foodPatient's Prior Level of Function: Patient reported: Independent withoutlimitations.Work Status: RetiredOccupation: naSocial: Lives with aloneHobbies / Interests: exercises classes 4 x week, gardeningPatient Goals: avoid having surgery in handPatient Reported Outcome Measures: [facility] [address] Daily Activity - AdaptedSee PT/OT Health Status belowPrevious treatment: NoneFalls Assessment: No positive results upon screening.Relevant medical history/ comorbidities:PAST MEDICAL HISTORYDiagnosis Date- Anemia- Collagenous colitis- Dyslipidemia- GERD (gastroesophageal reflux disease)- Hiatal hernia- HTN (hypertension)- Osteoarthritis- Osteopenia- PUD (peptic ulcer disease) 2014- Vitamin D deficiencyOBJECTIVE MEASURES WITH LEVEL OF FUNCTION:Vital Signs: NA/NTLeft UPPER EXTREMITYAROM as follows:Shoulder:WFLElbow:W FLWrist:WFLHand:Pt able to make full composite fistPt able to fully extend digitsThumb:WFLSkin:intactE faye:ModerateSensation:inta ct to light touch:Dexterity / Coordination:Observed to be WFL.Strength:[employer] Specials Strength: 2 RIGHT 25lbs. LEFT 25lbs.Functional Tests:Evidence of triggering: sagittal band injury, with subluxation of extensortendon"Boxer's knuckle"Education:Learning preferences: Explanation and DemonstrationBarriers: No barriersLearning/educationa l needs: Plan of careBrace FitEducation Provided: See Treatment BelowAudience: PatientMethod of education: Explanation and DemonstrationResponse: Applied knowledge and Demonstrated skillTREATMENT:EvaluationOT fabricated custom orthosis: relative extension splint L3933 FOcustom (fingers only/ mallet/ tip protector/ other) Proof of DeliveryProvided: yes. Custom orthosis to provide Pt practiced orthosisapplication, donning on/off while under OT's supervision. and to promotehealing. Patient was instructed in its wearing schedule except to bathe.Skilled Intervention: Clinical knowledge and skills required for customorthotic fabrication and wearing scheduleSelf Care / Home Management: - Educated patient on diagnosis and role ofOT and treatment plan. Explained the need for gradual progression ofprogram.- Instructed in ROM Activities: Instructed pt in AROM for hand digitflexion and extension with splint on. Pt completed exercise while intherapy today. Skilled Intervention: Skilled judgment in the selection ofproper modification for activity of daily living/home management based onclinical presentation, deficits, and needs.Post treatment Pain: nonePLAN OF CARE:Assessment: Behzad Hay presents with the chief complaint of painand instability of hand. She presents with impairments of motion andstrength. She may benefit from skilled therapy services to improvefunction.Prognosis is Good due to current objective clinical presentationGoals for Episode of Care: created on 10/17/2016 through 01/11/2017Pt will report a good understanding of diagnosis and OT recommendationsfor progression of programPatient will demonstrate independence with ongoing home exercise programPatient will independently demonstrate correct application of handorthosis and verbalize understanding of proper wear/care by end ofsession.Planned Interventions, Frequency, and Duration: follow up as needed forsplint adjustment and progression to active therapy prn after 6 weeksPlan for next treatment session: re-assess orthosis fit and comfortPatient demonstrates good understanding of plan of care and treatment.The above goals and plan of care were discussed and agreed upon bypatient/family.G CODE REPORTING Score Current Goal Discharge AM-PAC Scale Score Carrying, Moving and Handling Objects: [id number], Moving and Handling Objects: G8985 NAEvaluation10/17/2016 58 CJ 20-39% impaired CI 1-19% impaired NABased on clinical assessment and the score on the AM-PAC Scale ScoreAssessment Tool, the G code and corresponding severity modifiers aredocumented above.Billing: OT Services: Evaluation - Low Complexity ( 27984)Self Care / Home Management (10140): 1:1 time: 10 minutes (1 unit: 8-22mins)Orthosis: Fabrication time for custom splint: 15 minutesCustom: L3933 FO custom (fingers only/ mallet/ tip protector/ other)Proof of Delivery Provided: yesTotal time: 40 minutesVeronica Ervin, OT/L,CHT [facility] Large Joint Arthro/Inj: L kn ee joint [facility] Vital Signs Date Time Vital Sign Value Performing Clinician Giuseppe engle 11-16-2024 09:02-0400 Heart rate 83 /min Curt Diallo MD Work Phone: [facility] 11-16-2024 09:02-0400 SaO2% (BldA) [Mass fraction] 98 % Curt Diallo MD Work Phone: [facility] 11-16-2024 09:00-0400 Body mass index (BMI) [Ratio] 23.32 kg/m2 Curt Diallo MD Work Phone: [facility] 11-16-2024 09:00-0400 Body weight 54.16 kg Curt Diallo MD Work Phone: [facility] 11-16-2024 08:33-0400 Body temperature 97.59 [degF] Curt Diallo MD Work Phone: [facility] 11-16-2024 08:33-0400 Diastolic blood pressure 73 mm[Hg] Curt Diallo MD Work Phone: [facility] 11-16-2024 08:33-0400 Respiratory rate 18 /min Curt Diallo MD Work Phone: [facility] 11-16-2024 08:33-0400 Systolic blood pressure 121 mm[Hg] Curt Diallo MD Work Phone: [facility] 10-19-2024 09:30-0400 Body height 152.4 cm Curt Diallo MD Work Phone: [facility] 10-18-2024 12:27-0400 Body temperature 98.6 [degF] Dr. Ricki Reyes MD Work Phone: [facility] 10-18-2024 12:27-0400 Diastolic blood pressure 103 mm[Hg] Dr. Ricki Reyes MD Work Phone: 1(117)[phone] [place] [address] 10-18-2024 12:27-0400 Heart rate 89 /min Dr. Ricki Reyes MD Work Phone: 5(572)055-399783 [place] [address] 10-18-2024 12:27-0400 Respiratory rate 16 /min Dr. Ricki Reyes MD Work Phone: 1(001)997-721592 [address] 10-18-2024 12:27-0400 SaO2% (BldA) [Mass fraction] 98 % Dr. Ricki Reyes MD Work Phone: 9(829)971-836692 [address] 10-18-2024 12:27-0400 Systolic blood pressure 132 mm[Hg] Dr. Ricki Reyes MD Work Phone: 6(388)916-703692 [address] 10-18-2024 11:46-0400 Body mass index (BMI) [Ratio] 20.8 kg/m2 Dr. Ricki Reyes MD Work Phone: 6(257)374-641383 [place] [address] 10-18-2024 11:46-0400 Body weight 51.[address] Ricki Reyes MD Work Phone: [facility] 10-18-2024 11:45-0400 Body height 157.[address] Ricki Reyes MD Work Phone: [facility] 10-14-2024 10:38-0400 Body temperature 97.5 [degF] Nori Tafoya CCC-SUPERVISOR OF INSTRUCTION Work Phone: [facility] 10-14-2024 10:38-0400 Diastolic blood pressure 62 mm[Hg] Nori Tafoya CCC-SUPERVISOR OF INSTRUCTION Work Phone: [facility] 10-14-2024 10:38-0400 Heart rate 50 /min Nori Eickholt CCC-SUPERVISOR OF INSTRUCTION Work Phone: [facility] 10-14-2024 10:38-0400 SaO2% (BldA) [Mass fraction] 99 % Nori Dontrellolt CCC-SUPERVISOR OF INSTRUCTION Work Phone: [facility] 10-14-2024 10:38-0400 Systolic blood pressure 112 mm[Hg] Nori Dontrellolt CCC-SUPERVISOR OF INSTRUCTION Work Phone: [facility] 10-13-2024 11:53-0400 Body temperature 97.7 [degF] Nori Dontrellolt CCC-SUPERVISOR OF INSTRUCTION Work Phone: [facility] 10-13-2024 11:53-0400 Diastolic blood pressure 70 mm[Hg] Nori Dontrellolt CCC-SUPERVISOR OF INSTRUCTION Work Phone: [facility] 10-13-2024 11:53-0400 Heart rate 55 /min Nori Dontrellolt CCC-SUPERVISOR OF INSTRUCTION Work Phone: [facility] 10-13-2024 11:53-0400 SaO2% (BldA) [Mass fraction] 98 % Nori Dontrellolt CCC-SUPERVISOR OF INSTRUCTION Work Phone: [facility] 10-13-2024 11:53-0400 Systolic blood pressure 138 mm[Hg] Nori Dontrellolt CCC-SUPERVISOR OF INSTRUCTION Work Phone: [facility] 10-13-2024 11:11-0400 Heart rate 55 /min Yola Macnes ALCAZAR/L Work Phone: [facility] Comment on above: post tasks 10-13-2024 11:11-0400 SaO2% (BldA) [Mass fraction] 95 % Yloa Nj ALCAZAR/L Work Phone: [facility] Comment on above: post tasks 10-13-2024 10:41-0400 Body temperature 98.6 [degF] Yolafilemon Macnes ALCAZAR/L Work Phone: [facility] 10-13-2024 10:41-0400 Diastolic blood pressure 80 mm[Hg] Yola Nj ALCAZAR/L Work Phone: [facility] 10-13-2024 10:41-0400 Respiratory rate 16 /min Yola Nj ALCAZAR/L Work Phone: [facility] 10-13-2024 10:41-0400 Systolic blood pressure 134 mm[Hg] Yola Nj ALCAZAR/L Work Phone: [facility] 10-12-2024 11:33-0400 Body mass index (BMI) [Ratio] 21.58 kg/m2 Tasha Suppan COMMUNITY RELATIONS OFFICER.AVIATION ELECTRONIC 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: [facility] 10-12-2024 11:33-0400 Body temperature 97.59 [degF] Tasha Suppan COMMUNITY RELATIONS OFFICER.AVIATION ELECTRONIC 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: [facility] 10-12-2024 11:33-0400 Body weight 53.52 kg Tasha Suppan COMMUNITY RELATIONS OFFICER.AVIATION ELECTRONIC 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: [facility] 10-12-2024 11:33-0400 Diastolic blood pressure 82 mm[Hg] Tasha Suppan COMMUNITY RELATIONS OFFICER.AVIATION ELECTRONIC 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: [facility] 10-12-2024 11:33-0400 Heart rate 60 /min Tasha Suppan COMMUNITY RELATIONS OFFICER.AVIATION ELECTRONIC 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: [facility] 10-12-2024 11:33-0400 SaO2% (BldA) [Mass fraction] 98 % Tasha Suppan COMMUNITY RELATIONS OFFICER.AVIATION ELECTRONIC 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: [facility] 10-12-2024 11:33-0400 Systolic blood pressure 138 mm[Hg] Tasha Suppan COMMUNITY RELATIONS OFFICER.AVIATION ELECTRONIC 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: [facility] 10-12-2024 09:29-0400 Body height 157.[address] Ricki Reyes MD Work Phone: [facility] 10-12-2024 09:29-0400 Body mass index (BMI) [Ratio] 21.7 kg/m2 Dr. Ricki Reyes MD Work Phone: [facility] 10-12-2024 09:29-0400 Body weight 53.[address] Ricki Reyes MD Work Phone: [facility] 10-12-2024 09:29-0400 Diastolic blood pressure 63 mm[Hg] Dr. Ricki Reyes MD Work Phone: [facility] 10-12-2024 09:29-0400 Heart rate 53 /min Dr. Ricki Reyes MD Work Phone: [facility] 10-12-2024 09:29-0400 Respiratory rate 16 /min Dr. Ricki Reyes MD Work Phone: [facility] 10-12-2024 09:29-0400 Systolic blood pressure 129 mm[Hg] Dr. Ricki Reyes MD Work Phone: [facility] 10-11-2024 14:55-0400 Body temperature 98.2 [degF] Meseret Cruzman-Lopes PT Work Phone: [facility] 10-11-2024 14:55-0400 Diastolic blood pressure 76 mm[Hg] Meseret Halderman-Lopes PT Work Phone: [facility] 10-11-2024 14:55-0400 Heart rate 67 /min Meseret Halderman-Lopes PT Work Phone: [facility] 10-11-2024 14:55-0400 Respiratory rate 16 /min Meseret Halderman-Lopes PT Work Phone: [facility] 10-11-2024 14:55-0400 SaO2% (BldA) [Mass fraction] 99 % Meseret Halderman-Lopes PT Work Phone: [facility] 10-11-2024 14:55-0400 Systolic blood pressure 138 mm[Hg] Meseret Halderman-Lopes PT Work Phone: [facility] 10-11-2024 11:59-0400 Heart rate 79 /min Yola ALCAZAR/L Work Phone: [facility] Comment on above: post tasks 10-11-2024 11:59-0400 SaO2% (BldA) [Mass fraction] 97 % Yola Nj ALCAZAR/L Work Phone: [facility] Comment on above: post tasks 10-11-2024 11:36-0400 Body temperature 97.9 [degF] Yola Nj ALCAZAR/L Work Phone: [facility] 10-11-2024 11:36-0400 Diastolic blood pressure 80 mm[Hg] Yola Nj ALCAZAR/L Work Phone: [facility] 10-11-2024 11:36-0400 Respiratory rate 16 /min Yola Nj ALCAZAR/L Work Phone: [facility] 10-11-2024 11:36-0400 Systolic blood pressure 128 mm[Hg] Yola Nj ALCAZAR/L Work Phone: [facility] 10-08-2024 12:21-0400 Heart rate 64 /min Yola Nj ALCAZAR/L Work Phone: [facility] Comment on above: post tasks 10-08-2024 12:21-0400 SaO2% (BldA) [Mass fraction] 99 % Yola Nj ALCAZAR/L Work Phone: [facility] Comment on above: post tasks 10-08-2024 11:51-0400 Body temperature 97.59 [degF] Yola Nj ALCZAAR/L Work Phone: [facility] 10-08-2024 11:51-0400 Diastolic blood pressure 70 mm[Hg] Yola Nj ALCAZAR/L Work Phone: [facility] 10-08-2024 11:51-0400 Respiratory rate 16 /min Yola Nj ALCAZAR/L Work Phone: [facility] 10-08-2024 11:51-0400 Systolic blood pressure 130 mm[Hg] Yola Nj ALCAZAR/L Work Phone: [facility] 10-07-2024 11:55-0400 Body temperature 98.71 [degF] Merry Gale CCC-SUPERVISOR OF INSTRUCTION Work Phone: [facility] 10-07-2024 11:55-0400 Diastolic blood pressure 84 mm[Hg] Merry Gale CCC-SUPERVISOR OF INSTRUCTION Work Phone: [facility] 10-07-2024 11:55-0400 Heart rate 72 /min Merkonstantin Gale CCC-SUPERVISOR OF INSTRUCTION Work Phone: [facility] 10-07-2024 11:55-0400 Respiratory rate 16 /min Merry Gale CCC-SUPERVISOR OF INSTRUCTION Work Phone: [facility] 10-07-2024 11:55-0400 SaO2% (BldA) [Mass fraction] 95 % Merkonstantin Gale CCC-SUPERVISOR OF INSTRUCTION Work Phone: [facility] 10-07-2024 11:55-0400 Systolic blood pressure 128 mm[Hg] Moni Adriane CCC-SUPERVISOR OF INSTRUCTION Work Phone: [facility] 10-06-2024 11:19-0400 Heart rate 71 /min Yola Nj ALCAZAR/L Work Phone: [facility] Comment on above: post tasks 10-06-2024 11:19-0400 SaO2% (BldA) [Mass fraction] 99 % Yola Nj ALCAZAR/L Work Phone: [facility] Comment on above: post tasks 10-06-2024 10:43-0400 Body temperature 97.7 [degF] Yola Nj ALCAZAR/L Work Phone: [facility] 10-06-2024 10:43-0400 Diastolic blood pressure 66 mm[Hg] Yola Nj ALCAZAR/L Work Phone: [facility] 10-06-2024 10:43-0400 Respiratory rate 16 /min Yola Nj ALCAZAR/L Work Phone: [facility] 10-06-2024 10:43-0400 Systolic blood pressure 130 mm[Hg] Yola Nj ALCAZAR/L Work Phone: [facility] 06-25-2025 10:01-0400 Body temperature 98.2 [degF] Jocelyn RN Work Phone: [facility] 10-06-2024 10:01-0400 Diastolic blood pressure 64 mm[Hg] Jocelyn Most RN Work Phone: [facility] 10-06-2024 10:01-0400 Heart rate 76 /min Jocelyn Most RN Work Phone: [facility] 10-06-2024 10:01-0400 Respiratory rate 16 /min Jocelyn Most RN Work Phone: [facility] 10-06-2024 10:01-0400 SaO2% (BldA) [Mass fraction] 98 % Jocelyn Most RN Work Phone: [facility] 10-06-2024 10:01-0400 Systolic blood pressure 108 mm[Hg] Jocelyn Most RN Work Phone: [facility] 10-04-2024 16:25-0400 Body temperature 98.8 [degF] Merry Gale CCC-SUPERVISOR OF INSTRUCTION Work Phone: [facility] 10-04-2024 16:25-0400 Diastolic blood pressure 70 mm[Hg] Merry Gale CCC-SUPERVISOR OF INSTRUCTION Work Phone: [facility] 10-04-2024 16:25-0400 Heart rate 55 /min Merry Gale CCC-SUPERVISOR OF INSTRUCTION Work Phone: [facility] 10-04-2024 16:25-0400 Respiratory rate 16 /min Merry Gale CCC-SUPERVISOR OF INSTRUCTION Work Phone: [facility] 10-04-2024 16:25-0400 SaO2% (BldA) [Mass fraction] 92 % Merry Gale CCC-SUPERVISOR OF INSTRUCTION Work Phone: [facility] 10-04-2024 16:25-0400 Systolic blood pressure 134 mm[Hg] Merry Gale CCC-SUPERVISOR OF INSTRUCTION Work Phone: [facility] 10-04-2024 14:17-0400 Heart rate 95 /min Scarlett Archie CARDIAC CARE NURSE Work Phone: [facility] Comment on above: w ex 10-04-2024 14:17-0400 SaO2% (BldA) [Mass fraction] 99 % Scarlett Archie CARDIAC CARE NURSE Work Phone: [facility] 10-04-2024 14:08-0400 Body temperature 97.9 [degF] Scarlett Archie CARDIAC CARE NURSE Work Phone: [facility] 10-04-2024 14:08-0400 Diastolic blood pressure 68 mm[Hg] Scarlett Archie CARDIAC CARE NURSE Work Phone: [facility] 10-04-2024 14:08-0400 Respiratory rate 18 /min Scarlett Archie CARDIAC CARE NURSE Work Phone: [facility] 10-04-2024 14:08-0400 Systolic blood pressure 130 mm[Hg] Scarlett Archie CARDIAC CARE NURSE Work Phone: [facility] 10-04-2024 10:30-0400 Body mass index (BMI) [Ratio] 20.85 kg/m2 Tasha Suppan COMMUNITY RELATIONS OFFICER.AVIATION ELECTRONIC 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: [facility] 10-04-2024 10:30-0400 Body weight 51.71 kg Tasha Suppan COMMUNITY RELATIONS OFFICER.AVIATION ELECTRONIC 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: [facility] 10-04-2024 10:30-0400 Diastolic blood pressure 62 mm[Hg] Tasha Suppan COMMUNITY RELATIONS OFFICER.AVIATION ELECTRONIC 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: [facility] 10-04-2024 10:30-0400 Heart rate 46 /min Tasha Suppan COMMUNITY RELATIONS OFFICER.AVIATION ELECTRONIC 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: [facility] 10-04-2024 10:30-0400 SaO2% (BldA) [Mass fraction] 98 % Tasha Suppan COMMUNITY RELATIONS OFFICER.AVIATION ELECTRONIC 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: [facility] 10-04-2024 10:30-0400 Systolic blood pressure 136 mm[Hg] Tasha Suppan COMMUNITY RELATIONS OFFICER.AVIATION ELECTRONIC 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: [facility] 10-04-2024 09:07-0400 Body temperature 98.7 [degF] Dr. Ricki Reyes MD Work Phone: [facility] 10-04-2024 09:07-0400 Body weight 53.[address] Ricki Reyes MD Work Phone: [facility] 10-04-2024 09:07-0400 Diastolic blood pressure 70 mm[Hg] Dr. Ricki Reyes MD Work Phone: [facility] 10-04-2024 09:07-0400 Heart rate 58 /min Dr. Ricki Reyes MD Work Phone: 6(707)[phone] [place] [address] 10-04-2024 09:07-0400 Respiratory rate 17 /min Dr. Ricki Reyes MD Work Phone: 3(551)656-050583 [place] [address] 10-04-2024 09:07-0400 SaO2% (BldA) [Mass fraction] 97 % Dr. Ricki Reyes MD Work Phone: [facility] 10-04-2024 09:07-0400 Systolic blood pressure 150 mm[Hg] Dr. Ricki Reyes MD Work Phone: [facility] 10-01-2024 11:32-0400 Diastolic blood pressure 82 mm[Hg] Precious Gerstenslager OT Work Phone: [facility] 10-01-2024 11:32-0400 Heart rate 79 /min Precious Gerstenslager OT Work Phone: [facility] 10-01-2024 11:32-0400 SaO2% (BldA) [Mass fraction] 99 % Precious Gerstenslager OT Work Phone: [facility] 10-01-2024 11:32-0400 Systolic blood pressure 138 mm[Hg] Precious Gerstenslager OT Work Phone: [facility] 10-01-2024 10:44-0400 Body temperature 97.5 [degF] Precious Gerstenslager OT Work Phone: [facility] 09-29-2024 14:13-0400 Body temperature 98.49 [degF] Scarlett Archie CARDIAC CARE NURSE Work Phone: [facility] 09-29-2024 14:13-0400 Diastolic blood pressure 66 mm[Hg] Scarlett Archie CARDIAC CARE NURSE Work Phone: [facility] 09-29-2024 14:13-0400 Heart rate 60 /min Scarlett Archie CARDIAC CARE NURSE Work Phone: [facility] 09-29-2024 14:13-0400 Respiratory rate 18 /min Scarlett Archie CARDIAC CARE NURSE Work Phone: [facility] 09-29-2024 14:13-0400 SaO2% (BldA) [Mass fraction] 97 % Scarlett Archie CARDIAC CARE NURSE Work Phone: [facility] 09-29-2024 14:13-0400 Systolic blood pressure 126 mm[Hg] Scarlett Archie CARDIAC CARE NURSE Work Phone: [facility] 09-29-2024 11:21-0400 Body temperature 98.91 [degF] Merry Gale CCC-SUPERVISOR OF INSTRUCTION Work Phone: [facility] 09-29-2024 11:21-0400 Diastolic blood pressure 66 mm[Hg] Merry Gale CCC-SUPERVISOR OF INSTRUCTION Work Phone: [facility] 09-29-2024 11:21-0400 Heart rate 50 /min Merry Gale CCC-SUPERVISOR OF INSTRUCTION Work Phone: [facility] 09-29-2024 11:21-0400 Respiratory rate 16 /min Merry Gale CCC-SUPERVISOR OF INSTRUCTION Work Phone: [facility] 09-29-2024 11:21-0400 SaO2% (BldA) [Mass fraction] 97 % Merry Gale CCC-SUPERVISOR OF INSTRUCTION Work Phone: [facility] 09-29-2024 11:21-0400 Systolic blood pressure 138 mm[Hg] Merry Gale CCC-SUPERVISOR OF INSTRUCTION Work Phone: [facility] 09-29-2024 10:26-0400 Body temperature 98.2 [degF] Jocelyn Most RN Work Phone: [facility] 09-29-2024 10:26-0400 Diastolic blood pressure 66 mm[Hg] Jocelyn RN Work Phone: [facility] 09-29-2024 10:26-0400 Heart rate 60 /min Jocelynabraham Hernandez RN Work Phone: [facility] 09-29-2024 10:26-0400 Respiratory rate 16 /min Jocelynabraham Hernandez RN Work Phone: [facility] 09-29-2024 10:26-0400 SaO2% (BldA) [Mass fraction] 98 % Jocelynabraham Hernandez RN Work Phone: [facility] 09-29-2024 10:26-0400 Systolic blood pressure 118 mm[Hg] Jocelynabraham Hernandez RN Work Phone: [facility] 09-27-2024 11:34-0400 Body temperature 98.91 [degF] Merry Gale CCC-SUPERVISOR OF INSTRUCTION Work Phone: [facility] 09-27-2024 11:34-0400 Diastolic blood pressure 80 mm[Hg] Merry Gale CCC-SUPERVISOR OF INSTRUCTION Work Phone: [facility] 09-27-2024 11:34-0400 Heart rate 73 /min Merry Gale CCC-SUPERVISOR OF INSTRUCTION Work Phone: [facility] 09-27-2024 11:34-0400 Respiratory rate 16 /min Merry Gale CCC-SUPERVISOR OF INSTRUCTION Work Phone: [facility] 09-27-2024 11:34-0400 SaO2% (BldA) [Mass fraction] 97 % Merry Gale CCC-SUPERVISOR OF INSTRUCTION Work Phone: [facility] 09-27-2024 11:34-0400 Systolic blood pressure 138 mm[Hg] Merry Gale CCC-SUPERVISOR OF INSTRUCTION Work Phone: [facility] 09-25-2024 14:48-0400 Body temperature 97.59 [degF] Meseret Rahman PT Work Phone: [facility] 09-25-2024 14:48-0400 Diastolic blood pressure 58 mm[Hg] Meseret Mensah-Lopes PT Work Phone: [facility] 09-25-2024 14:48-0400 Heart rate 57 /min Meseret Mensah-Lopes PT Work Phone: [facility] 09-25-2024 14:48-0400 Respiratory rate 16 /min Meseret Mensah-Lopes PT Work Phone: [facility] 09-25-2024 14:48-0400 SaO2% (BldA) [Mass fraction] 97 % Meseret Mensah-Lopes PT Work Phone: [facility] 09-25-2024 14:48-0400 Systolic blood pressure 126 mm[Hg] Meseret Mensah-Lopes PT Work Phone: [facility] 09-23-2024 14:16-0400 Body temperature 98.2 [degF] Nori Eicsheilaolt CCC-SUPERVISOR OF INSTRUCTION Work Phone: [facility] 09-23-2024 14:16-0400 Diastolic blood pressure 58 mm[Hg] Nori Eickholt CCC-SUPERVISOR OF INSTRUCTION Work Phone: [facility] 09-23-2024 14:16-0400 Heart rate 75 /min Nori Eickholt CCC-SUPERVISOR OF INSTRUCTION Work Phone: [facility] 09-23-2024 14:16-0400 SaO2% (BldA) [Mass fraction] 95 % Nori Eickholt CCC-SUPERVISOR OF INSTRUCTION Work Phone: [facility] 09-23-2024 14:16-0400 Systolic blood pressure 100 mm[Hg] Nori Eickholt CCC-SUPERVISOR OF INSTRUCTION Work Phone: [facility] 09-22-2024 11:42-0400 Body height 157.5 cm Jocelyn Hernandez RN Work Phone: [facility] 09-22-2024 11:42-0400 Body mass index (BMI) [Ratio] 20.85 kg/m2 Jocelynmitra Hernandez RN Work Phone: [facility] 09-22-2024 11:42-0400 Body temperature 97.9 [degF] Jocelynmitra Hernandez RN Work Phone: [facility] 09-22-2024 11:42-0400 Body weight 51.71 kg Jocelynmitra Hernandez RN Work Phone: [facility] 09-22-2024 11:42-0400 Diastolic blood pressure 80 mm[Hg] Jocelynmitra Hernandez RN Work Phone: [facility] 09-22-2024 11:42-0400 Heart rate 68 /min Jocelynmitra Hernandez RN Work Phone: [facility] 09-22-2024 11:42-0400 Respiratory rate 16 /min Jocelynmitra Hernandez RN Work Phone: [facility] 09-22-2024 11:42-0400 SaO2% (BldA) [Mass fraction] 97 % Jocelynmitra Hernandez RN Work Phone: [facility] 09-22-2024 11:42-0400 Systolic blood pressure 124 mm[Hg] Jocelynmitra Hernandez RN Work Phone: [facility] 09-19-2024 08:18-0400 Diastolic blood pressure 67 mm[Hg] Dr. Ricki Reyes MD Work Phone: [facility] 09-19-2024 08:18-0400 Heart rate 58 /min Dr. Ricki Reyes MD Work Phone: [facility] 09-19-2024 08:18-0400 Systolic blood pressure 134 mm[Hg] Dr. Ricki Reyes MD Work Phone: [facility] 09-19-2024 06:00-0400 Body temperature 97.8 [degF] Dr. Ricki Reyes MD Work Phone: [facility] 09-19-2024 06:00-0400 Respiratory rate 16 /min Dr. Ricki Reyes MD Work Phone: [facility] 09-19-2024 06:00-0400 SaO2% (BldA) [Mass fraction] 95 % Dr. Ricki Reyes MD Work Phone: 1(048)435-794383 [place] [address] 09-18-2024 20:19-0400 Body mass index (BMI) [Ratio] 20.7 kg/m2 Dr. Ricki Reyes MD Work Phone: 4(367)569-176183 [place] [address] 09-17-2024 05:49-0400 Body weight 51.[address] Ricki Reyes MD Work Phone: 4(259)671-343183 [place] [address] 08-31-2024 23:58-0400 Inhaled oxygen flow rate 2 L/min Dr. Ricki Reyes MD Work Phone: 3(774)832-831183 [place] [address] 08-23-2024 09:53-0400 Body height 157.[address] Ricki Reyes MD Work Phone: 5(093)401-885183 [place] [address] 08-22-2024 12:10-0400 Diastolic blood pressure 63 mm[Hg] Dr. Ricki Reyes MD Work Phone: 8(355)451-542883 [place] [address] 08-22-2024 12:10-0400 Heart rate 51 /min Dr. Ricki Reyes MD Work Phone: 1(860)844-090083 [place] [address] 08-22-2024 12:10-0400 Systolic blood pressure 125 mm[Hg] Dr. Ricki Reyes MD Work Phone: 6(308)822-299883 [place] [address] 08-22-2024 11:15-0400 Body temperature 97.9 [degF] Dr. Ricki Reyes MD Work Phone: 7(725)805-673883 [place] [address] 08-22-2024 11:15-0400 Respiratory rate 16 /min Dr. Ricki Reyes MD Work Phone: 7(520)854-755283 [place] [address] 08-22-2024 11:15-0400 SaO2% (BldA) [Mass fraction] 99 % Dr. Ricki Reyes MD Work Phone: 6(492)510-486683 [place] [address] 08-22-2024 09:00-0400 Body mass index (BMI) [Ratio] 20.9 kg/m2 Dr. Ricki Reyes MD Work Phone: 8(288)912-946483 [place] [address] 08-19-2024 13:25-0400 Body height 157.[address] Ricki Reyes MD Work Phone: 9(956)769-513283 [place] [address] 08-19-2024 13:25-0400 Body weight 51.[address] Ricki Reyes MD Work Phone: 6(586)555-528583 [place] [address] 08-18-2024 14:00-0400 Diastolic blood pressure 101 mm[Hg] Dr. Ricki Reyes MD Work Phone: 1(571)297-209583 [place] [address] 08-18-2024 14:00-0400 Heart rate 79 /min Dr. Ricki Reyes MD Work Phone: 7(009)421-428983 [place] [address] 08-18-2024 14:00-0400 Respiratory rate 21 /min Dr. Ricki Reyes MD Work Phone: 0(716)256-318683 [place] [address] 08-18-2024 14:00-0400 Systolic blood pressure 181 mm[Hg] Dr. Ricki Reyes MD Work Phone: 3(312)855-989183 [place] [address] 08-18-2024 12:36-0400 SaO2% (BldA) [Mass fraction] 96 % Dr. Ricki Reyes MD Work Phone: 0(036)920-321283 [place] [address] 08-18-2024 10:54-0400 Body height 152.[address] Ricki Reyes MD Work Phone: 7(968)093-374483 [place] [address] 08-18-2024 10:54-0400 Body mass index (BMI) [Ratio] 24 kg/m2 Dr. Ricki Reyes MD Work Phone: 9(610)893-802683 [place] [address] 08-18-2024 10:54-0400 Body weight 55.[address] Ricki Reyes MD Work Phone: 9(630)081-163383 [place] [address] 08-18-2024 09:54-0400 Body temperature 98 [degF] Dr. Ricki Reyes MD Work Phone: 4(194)360-341583 [place] [address] 08-16-2024 20:53-0400 Body temperature 98 [degF] Dr. Ricki Reyes MD Work Phone: 5(763)362-262283 [place] [address] 08-16-2024 20:53-0400 Diastolic blood pressure 72 mm[Hg] Dr. Ricki Reyes MD Work Phone: 7(943)090-624183 [place] [address] 08-16-2024 20:53-0400 Heart rate 91 /min Dr. Ricki Reyes MD Work Phone: [facility] 08-16-2024 20:53-0400 Respiratory rate 16 /min Dr. Ricki Reyes MD Work Phone: [facility] 08-16-2024 20:53-0400 SaO2% (BldA) [Mass fraction] 97 % Dr. Ricki Reyes MD Work Phone: [facility] 08-16-2024 20:53-0400 Systolic blood pressure 153 mm[Hg] Dr. Ricki Reyes MD Work Phone: [facility] 08-16-2024 15:44-0400 Body mass index (BMI) [Ratio] 23.1 kg/m2 Dr. Ricki Reyes MD Work Phone: [facility] 08-16-2024 15:44-0400 Body weight 53.[address] Ricki Reyes MD Work Phone: [facility] 04-26-2024 10:15-0500 Body mass index (BMI) [Ratio] 22.12 kg/m2 Tasha Suppan COMMUNITY RELATIONS OFFICER.AVIATION ELECTRONIC 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: [facility] 04-26-2024 10:15-0500 Body weight 53.98 kg Tasha Suppan COMMUNITY RELATIONS OFFICER.AVIATION ELECTRONIC 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: [facility] 04-26-2024 10:15-0500 Diastolic blood pressure 78 mm[Hg] Tasha Suppan COMMUNITY RELATIONS OFFICER.AVIATION ELECTRONIC 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: [facility] 04-26-2024 10:15-0500 Heart rate 62 /min Tasha Suppan COMMUNITY RELATIONS OFFICER.AVIATION ELECTRONIC 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: [facility] 04-26-2024 10:15-0500 SaO2% (BldA) [Mass fraction] 98 % Tasha Suppan COMMUNITY RELATIONS OFFICER.AVIATION ELECTRONIC 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: [facility] 04-26-2024 10:15-0500 Systolic blood pressure 142 mm[Hg] Tasha Suppan COMMUNITY RELATIONS OFFICER.AVIATION ELECTRONIC 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: [facility] 04-05-2024 15:25-0500 Body mass index (BMI) [Ratio] 22.12 kg/m2 Tasah Suppan COMMUNITY RELATIONS OFFICER.AVIATION ELECTRONIC 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: [facility] 04-05-2024 15:25-0500 Body temperature 97.2 [degF] Tasha Suppan COMMUNITY RELATIONS OFFICER.AVIATION ELECTRONIC 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: [facility] 04-05-2024 15:25-0500 Body weight 53.98 kg Tasha Suppan COMMUNITY RELATIONS OFFICER.AVIATION ELECTRONIC 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: [facility] 04-05-2024 15:25-0500 Diastolic blood pressure 84 mm[Hg] Tasha Suppan COMMUNITY RELATIONS OFFICER.AVIATION ELECTRONIC 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: [facility] 04-05-2024 15:25-0500 Heart rate 75 /min Tasha Suppan COMMUNITY RELATIONS OFFICER.AVIATION ELECTRONIC 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: [facility] 04-05-2024 15:25-0500 Respiratory rate 16 /min Tasha Suppan COMMUNITY RELATIONS OFFICER.AVIATION ELECTRONIC 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: [facility] 04-05-2024 15:25-0500 SaO2% (BldA) [Mass fraction] 96 % Tasha Suppan COMMUNITY RELATIONS OFFICER.AVIATION ELECTRONIC 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: [facility] 04-05-2024 15:25-0500 Systolic blood pressure 162 mm[Hg] Tasha Suppan COMMUNITY RELATIONS OFFICER.AVIATION ELECTRONIC 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: [facility] 12-05-2023 10:49-0400 Body mass index (BMI) [Ratio] 21.19 kg/m2 Tasha Suppan COMMUNITY RELATIONS OFFICER.AVIATION ELECTRONIC 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: [facility] 12-05-2023 10:49-0400 Body weight 51.71 kg Tasha Suppan COMMUNITY RELATIONS OFFICER.AVIATION ELECTRONIC 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: [facility] 12-05-2023 10:49-0400 Diastolic blood pressure 88 mm[Hg] Tasha Suppan COMMUNITY RELATIONS OFFICER.AVIATION ELECTRONIC 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: [facility] 12-05-2023 10:49-0400 Heart rate 81 /min Tasha Suppan COMMUNITY RELATIONS OFFICER.AVIATION ELECTRONIC 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: [facility] 12-05-2023 10:49-0400 SaO2% (BldA) [Mass fraction] 98 % Tasha Suppan COMMUNITY RELATIONS OFFICER.AVIATION ELECTRONIC 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: [facility] 12-05-2023 10:49-0400 Systolic blood pressure 150 mm[Hg] Tasha Suppan COMMUNITY RELATIONS OFFICER.AVIATION ELECTRONIC 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: [facility] 10-27-2023 09:35-0400 Body mass index (BMI) [Ratio] 21.56 kg/m2 Tasha Suppan COMMUNITY RELATIONS OFFICER.AVIATION ELECTRONIC 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: [facility] 10-27-2023 09:35-0400 Body weight 52.62 kg Tasha Suppan COMMUNITY RELATIONS OFFICER.AVIATION ELECTRONIC 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: [facility] 10-27-2023 09:35-0400 Diastolic blood pressure 76 mm[Hg] Tasha Suppan COMMUNITY RELATIONS OFFICER.AVIATION ELECTRONIC 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: [facility] 10-27-2023 09:35-0400 Heart rate 70 /min Tasha Suppan COMMUNITY RELATIONS OFFICER.AVIATION ELECTRONIC 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: [facility] 10-27-2023 09:35-0400 Respiratory rate 18 /min Tasha Suppan COMMUNITY RELATIONS OFFICER.AVIATION ELECTRONIC 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: [facility] 10-27-2023 09:35-0400 SaO2% (BldA) [Mass fraction] 97 % Tasha Suppan COMMUNITY RELATIONS OFFICER.AVIATION ELECTRONIC 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: [facility] 10-27-2023 09:35-0400 Systolic blood pressure 128 mm[Hg] Tasha Suppan COMMUNITY RELATIONS OFFICER.AVIATION ELECTRONIC 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: [facility] 09-26-2023 15:23-0400 Body mass index (BMI) [Ratio] 21.72 kg/m2 Sudheer Olguin APRN.AVIATION ELECTRONIC 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: [facility] 09-26-2023 15:23-0400 Body temperature 97.5 [degF] Sudheer Sharif COMMUNITY RELATIONS OFFICER.AVIATION ELECTRONIC 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: [facility] 09-26-2023 15:23-0400 Body weight 53 kg Sudheer Sharif COMMUNITY RELATIONS OFFICER.AVIATION ELECTRONIC 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: [facility] 09-26-2023 15:23-0400 Diastolic blood pressure 90 mm[Hg] Sudheer Sharif COMMUNITY RELATIONS OFFICER.AVIATION ELECTRONIC 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: [facility] Comment on above: checked BP x 2 09-26-2023 15:23-0400 Heart rate 69 /min Sudheerarnoldo Olguin COMMUNITY RELATIONS OFFICER.AVIATION ELECTRONIC 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: [facility] 09-26-2023 15:23-0400 Respiratory rate 18 /min Sudheerarnoldo Olguin COMMUNITY RELATIONS OFFICER.AVIATION ELECTRONIC 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: [facility] 09-26-2023 15:23-0400 SaO2% (BldA) [Mass fraction] 97 % Sudheerarnoldo Olguin COMMUNITY RELATIONS OFFICER.AVIATION ELECTRONIC 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: [facility] 09-26-2023 15:23-0400 Systolic blood pressure 194 mm[Hg] Sudheer Sharif COMMUNITY RELATIONS OFFICER.AVIATION ELECTRONIC 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: [facility] Comment on above: checked BP x 2 08-15-2023 09:55-0400 Body mass index (BMI) [Ratio] 21.56 kg/m2 Tasha Suppan COMMUNITY RELATIONS OFFICER.OUTREACH COORDINATOR Work Phone: [facility] 08-15-2023 09:55-0400 Body weight 52.62 kg Tasha Suppan COMMUNITY RELATIONS OFFICER.OUTREACH COORDINATOR Work Phone: [facility] 08-15-2023 09:55-0400 Diastolic blood pressure 78 mm[Hg] Tasha Suppan COMMUNITY RELATIONS OFFICER.OUTREACH COORDINATOR Work Phone: [facility] 08-15-2023 09:55-0400 Heart rate 83 /min Tasha Suppan COMMUNITY RELATIONS OFFICER.OUTREACH COORDINATOR Work Phone: [facility] 08-15-2023 09:55-0400 Respiratory rate 16 /min Tasha Suppan COMMUNITY RELATIONS OFFICER.OUTREACH COORDINATOR Work Phone: [facility] 08-15-2023 09:55-0400 SaO2% (BldA) [Mass fraction] 98 % Tasha Deutsch COMMUNITY RELATIONS OFFICER.OUTREACH COORDINATOR Work Phone: [facility] 08-15-2023 09:55-0400 Systolic blood pressure 128 mm[Hg] Tasha Deutsch COMMUNITY RELATIONS OFFICER.OUTREACH COORDINATOR Work Phone: [facility] 07-16-2023 12:59-0400 Body temperature 97.7 [degF] Moses Ross MD Work Phone: [facility] 07-16-2023 12:59-0400 Body weight 53.98 kg Moses Ross MD Work Phone: [facility] 07-16-2023 12:59-0400 Diastolic blood pressure 76 mm[Hg] Moses Ross MD Work Phone: [facility] 07-16-2023 12:59-0400 Heart rate 60 /min Moses Ross MD Work Phone: [facility] 07-16-2023 12:59-0400 Systolic blood pressure 161 mm[Hg] Moses Ross MD Work Phone: [facility] 07-08-2023 09:30-0400 Body weight 53.07 kg Hetal Gallardo DO Work Phone: [facility] 07-08-2023 09:30-0400 Diastolic blood pressure 84 mm[Hg] Hetal Gallardo DO Work Phone: [facility] 07-08-2023 09:30-0400 Heart rate 72 /min Hetal Gallardo DO Work Phone: [facility] 07-08-2023 09:30-0400 SaO2% (BldA) [Mass fraction] 98 % Hetal Gallardo DO Work Phone: [facility] 07-08-2023 09:30-0400 Systolic blood pressure 180 mm[Hg] Hetal Gallardo DO Work Phone: [facility] 06-25-2023 10:00-0400 Diastolic blood pressure 87 mm[Hg] Julee Maderaal PT [facility] 06-25-2023 10:00-0400 Heart rate 61 /min Julee O'Kirk PT [facility] 06-25-2023 10:00-0400 SaO2% (BldA) [Mass fraction] 97 % Julee O'Kirk PT [facility] 06-25-2023 10:00-0400 Systolic blood pressure 177 mm[Hg] Julee O'Kirk PT [facility] 06-18-2023 10:00-0500 Diastolic blood pressure 80 mm[Hg] Julee O'Kirk PT [facility] 06-18-2023 10:00-0500 Heart rate 76 /min Julee O'Kirk PT [facility] 06-18-2023 10:00-0500 SaO2% (BldA) [Mass fraction] 99 % Julee O'Kirk PT [facility] 06-18-2023 10:00-0500 Systolic blood pressure 154 mm[Hg] Julee O'Kirk PT [facility] 06-04-2023 10:00-0500 Diastolic blood pressure 98 mm[Hg] Julee O'Kirk PT [facility] 06-04-2023 10:00-0500 Heart rate 80 /min Julee O'Kirk PT [facility] 06-04-2023 10:00-0500 SaO2% (BldA) [Mass fraction] 99 % Julee O'Kirk PT [facility] 06-04-2023 10:00-0500 Systolic blood pressure 197 mm[Hg] Julee O'Kirk PT [facility] 06-02-2023 16:22-0500 Diastolic blood pressure 80 mm[Hg] Tasha Suppan COMMUNITY RELATIONS OFFICER.OUTREACH COORDINATOR Work Phone: [facility] 06-02-2023 16:22-0500 Heart rate 78 /min Tasha Suppan COMMUNITY RELATIONS OFFICER.OUTREACH COORDINATOR Work Phone: [facility] 06-02-2023 16:22-0500 Respiratory rate 16 /min Tasha Suppan COMMUNITY RELATIONS OFFICER.OUTREACH COORDINATOR Work Phone: [facility] 06-02-2023 16:22-0500 SaO2% (BldA) [Mass fraction] 98 % Tasha Deutsch COMMUNITY RELATIONS OFFICER.OUTREACH COORDINATOR Work Phone: [facility] 06-02-2023 16:22-0500 Systolic blood pressure 152 mm[Hg] Tasha Deutsch COMMUNITY RELATIONS OFFICER.OUTREACH COORDINATOR Work Phone: [facility] 05-28-2023 10:00-0500 Diastolic blood pressure 97 mm[Hg] Julee O'Kirk PT [facility] 05-28-2023 10:00-0500 Heart rate 67 /min Julee O'Kirk PT [facility] 05-28-2023 10:00-0500 SaO2% (BldA) [Mass fraction] 99 % Julee O'Kirk PT [facility] 05-28-2023 10:00-0500 Systolic blood pressure 191 mm[Hg] Julee O'Kirk PT [facility] 05-26-2023 13:41-0500 Diastolic blood pressure 80 mm[Hg] Breann Haagen COMMUNITY RELATIONS OFFICER.AVIATION ELECTRONIC 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: [facility] 05-26-2023 13:41-0500 Heart rate 69 /min Breann Haagen COMMUNITY RELATIONS OFFICER.AVIATION ELECTRONIC 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: [facility] 05-26-2023 13:41-0500 Systolic blood pressure 171 mm[Hg] Breann Haagen COMMUNITY RELATIONS OFFICER.AVIATION ELECTRONIC 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: [facility] 05-26-2023 13:10-0500 Respiratory rate 16 /min Breann Haagen COMMUNITY RELATIONS OFFICER.AVIATION ELECTRONIC 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: [facility] 05-26-2023 13:10-0500 SaO2% (BldA) [Mass fraction] 96 % Breann Haagen COMMUNITY RELATIONS OFFICER.AVIATION ELECTRONIC 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: [facility] 12-30-2022 15:07-0400 Body weight 52.16 kg Sandra Horne MD Work Phone: [facility] 12-30-2022 15:07-0400 Diastolic blood pressure 94 mm[Hg] Sandra Horne MD Work Phone: [facility] 12-30-2022 15:07-0400 Heart rate 74 /min Sandra Horne MD Work Phone: [facility] 12-30-2022 15:07-0400 SaO2% (BldA) [Mass fraction] 98 % Sandra Horne MD Work Phone: [facility] 12-30-2022 15:07-0400 Systolic blood pressure 197 mm[Hg] Sandra Horne MD Work Phone: [facility] 10-24-2022 09:09-0400 Body weight 52.16 kg NA Harrington PA-C Work Phone: [facility] 10-24-2022 09:09-0400 Diastolic blood pressure 76 mm[Hg] NA Harrington PA-C Work Phone: [facility] 10-24-2022 09:09-0400 Heart rate 80 /min NA Harrington PA-C Work Phone: [facility] 10-24-2022 09:09-0400 Respiratory rate 16 /min NA Harrington PA-C Work Phone: [facility] 10-24-2022 09:09-0400 SaO2% (BldA) [Mass fraction] 98 % NA Harrington PA-C Work Phone: [facility] 10-24-2022 09:09-0400 Systolic blood pressure 142 mm[Hg] NA Harrington PA-C Work Phone: [facility] 10-10-2022 13:15-0400 Body weight 53.07 kg NA Harrington PA-C Work Phone: [facility] 10-10-2022 13:15-0400 Diastolic blood pressure 74 mm[Hg] NA Harrington PA-C Work Phone: [facility] 10-10-2022 13:15-0400 Heart rate 68 /min NA Harrington PA-C Work Phone: [facility] 10-10-2022 13:15-0400 Respiratory rate 16 /min NA Harrington PA-C Work Phone: [facility] 10-10-2022 13:15-0400 SaO2% (BldA) [Mass fraction] 97 % NA Harrington PA-C Work Phone: [facility] 10-10-2022 13:15-0400 Systolic blood pressure 146 mm[Hg] NA Harrington PA-C Work Phone: [facility] 04-11-2022 09:31-0500 Body weight 53.98 kg NA Harrington PA-C Work Phone: [facility] 04-11-2022 09:31-0500 Diastolic blood pressure 88 mm[Hg] NA Harrington PA-C Work Phone: [facility] 04-11-2022 09:31-0500 Heart rate 75 /min NA Harrington PA-C Work Phone: [facility] 04-11-2022 09:31-0500 Respiratory rate 16 /min NA Harrington PA-C Work Phone: [facility] 04-11-2022 09:31-0500 SaO2% (BldA) [Mass fraction] 95 % NA Harrington PA-C Work Phone: [facility] 04-11-2022 09:31-0500 Systolic blood pressure 132 mm[Hg] NA Harrington PA-C Work Phone: [facility] 04-07-2022 23:20-0500 Diastolic blood pressure 73 mm[Hg] [facility] Work Phone: 04-07-2022 23:20-0500 Heart rate 83 /min [facility] Work Phone: 04-07-2022 23:20-0500 Respiratory rate 15 /min [facility] Work Phone: 04-07-2022 23:20-0500 SaO2% (BldA) [Mass fraction] 98 % [facility] Work Phone: 04-07-2022 23:20-0500 Systolic blood pressure 135 mm[Hg] [facility] Work Phone: 04-07-2022 20:57-0500 Body height 152.4 cm [facility] Work Phone: 04-07-2022 20:57-0500 Body mass index (BMI) [Ratio] 23 kg/m2 [facility] Work Phone: 04-07-2022 20:57-0500 Body temperature 97.8 [degF] [facility] Work Phone: 04-07-2022 20:57-0500 Body weight 53.52 kg [facility] Work Phone: 10-29-2021 11:10-0400 Body temperature 98.1 [degF] NA Harrington PA-C Work Phone: [facility] 10-29-2021 11:10-0400 Body weight 53.07 kg NA Harrington PA-C Work Phone: [facility] 10-29-2021 11:10-0400 Diastolic blood pressure 62 mm[Hg] NA Harrington PA-C Work Phone: [facility] 10-29-2021 11:10-0400 Heart rate 69 /min NA Harrington PA-C Work Phone: [facility] 10-29-2021 11:10-0400 Respiratory rate 16 /min NA Harrington PA-C Work Phone: [facility] 10-29-2021 11:10-0400 SaO2% (BldA) [Mass fraction] 95 % NA Harrington PA-C Work Phone: [facility] 10-29-2021 11:10-0400 Systolic blood pressure 148 mm[Hg] NA Harrington PA-C Work Phone: [facility] NEGATED: Highlighted [id number] 11:13-0500 Body height [facility] Work Phone: NEGATED: Highlighted [id number] 11:13-0500 Body height [facility] Work Phone: NEGATED: Highlighted [id number] 11:13050 Body mass index (BMI) [Ratio] 22.74 kg/m2 [facility] Work Phone: NEGATED: Highlighted [id number] 11:050 Body weight 52.62 kg [facility] Work Phone: NEGATED: Highlighted [id number] 11:050 Body weight 53 kg [facility] Work Phone: Encounters Encounter Date Encounter Type Care Provider Facility Start: 01-25-2025 ambulatory Tasha Suppan Facil ity:[facility] Start: 01-13-2025 ambulatory Tasha Suppan Facil ity:[facility] Start: 12-09-2024 ambulatory Tasha Suppan Facil ity:[facility] Start: 12-03-2024 End: 12-06-2024 ambulatory Tasha A Suppan COMMUNITY RELATIONS OFFICER.AVIATION ELECTRONIC 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: [facility] Comment on above: Blood Thinner Start: 11-30-2024 ambulatory Tasha Suppan Facil ity:[facility] Start: 11-23-2024 End: 11-23-2024 Home visit Charlee Rojo RN Work Phone: [facility] Comment on above: AGENCY DC NO [place] Start: 11-23-2024 End: 11-23-2024 Telephone encounter Tasha A Suppan COMMUNITY RELATIONS OFFICER.AVIATION ELECTRONIC 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: [facility] Start: 11-23-2024 ambulatory Tasha Suppan Facil ity:[facility] Start: 11-18-2024 ambulatory Tasha Suppan Facil ity:[facility] Start: 11-10-2024 End: 11-12-2024 Telephone encounter Tasha A Suppan COMMUNITY RELATIONS OFFICER.AVIATION ELECTRONIC 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: [facility] Comment on above: Fax Neurovascular Am bulator [facility] in [place] Start: 11-04-2024 End: 11-04-2024 ambulatory Tasha Deutsch COMMUNITY RELATIONS OFFICER.AVIATION ELECTRONIC 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: [facility] Comment on above: Allied Health Visit (Medication adherence outreach/) Start: 10-20-2024 End: 10-20-2024 Telephone encounter Mack Brito RN Work Phone: [facility] Comment on above: Home Care (Notificat ion of hospital admission.) Start: 10-20-2024 End: 10-20-2024 Home visit Mack Brito RN Work Phone: [facility] Comment on above: SN TRANSFER Start: 10-19-2024 End: 10-19-2024 Home visit Precious Carpenter OT Work Phone: [facility] Comment on above: OT ATTEMPTED VISIT Start: 10-18-2024 End: 11-16-2024 Evaluation and management of inpatient Curt Diallo MD Work Phone: [id number] Start: 10-18-2024 End: 10-18-2024 Emergency department patient visit Dr. Ricki Reyes MD Work Phone: -Emergency Department Work Phone: Start: 10-15-2024 End: 10-18-2024 Refill Tasha Deutsch COMMUNITY RELATIONS OFFICER.AVIATION ELECTRONIC 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: [facility] Comment on above: Refill Request Start: 10-14-2024 End: 12-14-2024 Follow-up encounter Tasha Deutsch COMMUNITY RELATIONS OFFICER.AVIATION ELECTRONIC 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: [facility] Start: 10-14-2024 End: 10-14-2024 Home visit Nori Tafoya CCC-SUPERVISOR OF INSTRUCTION Work Phone: [facility] Comment on above: SUPERVISOR OF INSTRUCTION REASSESSMENT Start: 10-13-2024 End: 10-13-2024 Home visit Nori Tafoya CCC-SUPERVISOR OF INSTRUCTION Work Phone: [facility] Comment on above: SUPERVISOR OF INSTRUCTION ROUTINE Start: 10-13-2024 End: 10-13-2024 Home visit Yola Nj ALCAZAR/L Work Phone: [facility] Comment on above: ALCAZAR ROUTINE Start: 10-12-2024 End: 10-12-2024 Office outpatient visit 15 minutes Tasha A Suppan COMMUNITY RELATIONS OFFICER.AVIATION ELECTRONIC 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: [facility] Comment on above: Dysuria (Primary Dx) ; Confusion; Seasonal allergic rhinitis, unspecified trigger Start: 10-12-2024 End: 10-12-2024 ambulatory TASHA A SUPPAN Facility:[facility] Start: 10-12-2024 End: 10-12-[address] Cricket Leyva MD -[facility] Work Phone: Start: 10-12-2024 End: 10-12-[address] Ricki Reyes MD Work Phone: -[facility] Start: 10-12-2024 End: 10-12-2024 Home visit Nori Tafoya [facility]-SUPERVISOR OF INSTRUCTION Work Phone: [facility] Comment on above: SUPERVISOR OF INSTRUCTION ATTEMPTED VISIT Start: 10-11-2024 End: 10-12-2024 ambulatory Tasha A Suppan COMMUNITY RELATIONS OFFICER.AVIATION ELECTRONIC 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: [facility] Comment on above: UTI Start: 10-11-2024 End: 10-11-2024 Home visit Yola Nj ALCAZAR/L Work Phone: [facility] Comment on above: ALCAZAR ROUTINE PT DISC DC W VISIT Start: 10-08-2024 End: 10-08-2024 Home visit Yola Nj ALCAZAR/L Work Phone: [facility] Comment on above: ALCAZAR ROUTINE Start: 10-07-2024 End: 10-07-2024 Orders Only Tasha A Suppan COMMUNITY RELATIONS OFFICER.AVIATION ELECTRONIC 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: [facility] Comment on above: SUPERVISOR OF INSTRUCTION ROUTINE Start: 10-06-2024 End: 10-07-2024 Telephone encounter Moni Rodríguez CCC-SUPERVISOR OF INSTRUCTION Work Phone: [facility] Comment on above: Home Care ([place] g out patient's speech therapy orders) Start: 10-06-2024 End: 10-06-2024 Home visit Jocelyn Hernandez RN Work Phone: [facility] Comment on above: SN DISC DC W VISIT ALCAZAR ROUTINE Start: 10-05-2024 End: 10-05-2024 Follow-up encounter Tasha Deutsch COMMUNITY RELATIONS OFFICER.AVIATION ELECTRONIC 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: [facility] [place] Start: 10-04-2024 End: 10-04-2024 Home visit Scarlett Almanza CARDIAC CARE NURSE Work Phone: [facility] Comment on above: CARDIAC CARE NURSE ROUTINE SUPERVISOR OF INSTRUCTION ROUTINE Start: 10-04-2024 End: 10-04-2024 ambulatory TASHA A SUPPAN Facility:[facility] Start: 10-04-2024 End: 10-04-2024 Office outpatient visit 25 minutes Tasha Deutsch COMMUNITY RELATIONS OFFICER.AVIATION ELECTRONIC 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: [facility] Comment on above: Paroxysmal atrial fi brillation (HCC) (Primary Dx); 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 Ricki Reyes MD Work Phone: [facility] Work Phone: Start: 10-01-2024 End: 10-01-2024 Home visit Precious Carpentre OT Work Phone: [facility] Comment on above: OT EVAL Start: 09-29-2024 End: 09-29-2024 Home visit Scarlett Almanza CARDIAC CARE NURSE Work Phone: [facility] Comment on above: CARDIAC CARE NURSE ROUTINE SN ROUTINE SUPERVISOR OF INSTRUCTION ROUTINE Start: 09-27-2024 End: 09-28-2024 ambulatory Tasha Deutsch COMMUNITY RELATIONS OFFICER.AVIATION ELECTRONIC 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: [facility] Comment on above: Living Will Start: 09-27-2024 End: 09-27-2024 Telephone encounter Tasha Deutsch COMMUNITY RELATIONS OFFICER.AVIATION ELECTRONIC 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: [facility] Start: 09-27-2024 End: 09-27-2024 Home visit Moni Anne [facility]-SUPERVISOR OF INSTRUCTION Work Phone: [facility] Comment on above: SUPERVISOR OF INSTRUCTION ROUTINE Start: 09-25-2024 End: 09-25-2024 Home visit Meseret Rahman PT Work Phone: [facility] Comment on above: PT EVAL Start: 09-24-2024 End: 09-24-2024 Telephone encounter Tasha Deutsch COMMUNITY RELATIONS OFFICER.AVIATION ELECTRONIC 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: [facility] Start: 09-23-2024 End: 09-23-2024 Orders Only Tasha Deutsch COMMUNITY RELATIONS OFFICER.AVIATION ELECTRONIC 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: [facility] Comment on above: PUBLIC EMPLOYMENT MEDIATOR CARE COORDINATIO N Home Care IDT CLINICAL TEAM CO LLABORATION SUPERVISOR OF INSTRUCTION EVAL Start: 09-22-2024 End: 09-22-2024 Home visit Jocelyn Hernandez RN Work Phone: [facility] Comment on above: SN SOC Start: 09-21-2024 End: 09-21-2024 Telephone encounter Nga Mccall RN Work Phone: [facility] Start: 09-18-2024 Non-patient / Non-visit Dr. Amandeep Dorado DO [facility] Work Phone: Start: 09-17-2024 End: 09-17-2024 Telephone encounter Asad KINGSLEY Work Phone: [facility] Comment on above: Home Care (Confirmat ion Call) Home Care (MD AISHWARYA ANGUIANO) Start: 09-16-2024 Non-patient / Non-visit Dr. Amandeep Dorado [facility] Work Phone: Start: 09-14-2024 End: 09-16-2024 ambulatory Tasha Deutsch COMMUNITY RELATIONS OFFICER.AVIATION ELECTRONIC 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: [facility] Comment on above: Behzad Obando er - FMLA Start: 09-14-2024 Non-patient / Non-visit Dr. Amandeep Dorado [facility] Work Phone: Start: 09-13-2024 Non-patient / Non-visit Dr. Amandeep Dorado [facility] Work Phone: Start: 09-09-2024 Non-patient / Non-visit Dr. Amandeep Dorado [facility] Work Phone: Start: 09-07-2024 Non-patient / Non-visit Dr. Amandeep Dorado [facility] Work Phone: Start: 09-05-2024 Non-patient / Non-visit Dr. Amandeep Dorado [facility] Work Phone: Start: 09-02-2024 Non-patient / Non-visit Dr. Amandeep Dorado [facility] Work Phone: Start: 08-31-2024 Non-patient / Non-visit Dr. Amandeep Dorado [facility] Work Phone: Start: 08-30-2024 End: 08-30-2024 Telephone encounter Tasha Deutsch COMMUNITY RELATIONS OFFICER.AVIATION ELECTRONIC 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: [facility] Start: 08-30-2024 Non-patient / Non-visit Dr. Amandeep Dorado [facility] Work Phone: Start: 08-26-2024 Non-patient / Non-visit Dr. Amandeep Dorado [facility] Work Phone: Start: 08-23-2024 End: 08-23-2024 Telephone encounter Tasha Deutsch COMMUNITY RELATIONS OFFICER.AVIATION ELECTRONIC 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: [facility] Start: 08-23-2024 Non-patient / Non-visit Dr. Amandeep Dorado [facility] Work Phone: Start: 08-22-2024 ambulatory Tasha Deutsch Facil ity:[facility] Start: 08-22-2024 End: 09-19-2024 Evaluation and management of inpatient Dr. Behzad Dorado [facility] Work Phone: Start: 08-22-2024 Non-patient / Non-visit Dr. Mara Mar [facility] Work Phone: Start: 08-21-2024 Non-patient / Non-visit Dr. Mara Mar [facility] Work Phone: Start: 08-20-2024 Non-patient / Non-visit Dr. Mara Mar [facility] Work Phone: Start: 08-19-2024 Non-patient / Non-visit Dr. Mara Mar [facility] Work Phone: Start: 08-19-2024 ambulatory Cricket Leyva Facility:[facility] Start: 08-19-2024 Non-patient / Non-visit Dr. Cricket flanagan MD -[facility] Start: 08-18-2024 ambulatory Mara Mar Facility:[facility] Start: 08-18-2024 End: 08-22-2024 Evaluation and management of inpatient Dr. Mara Mar DO [facility] Work Phone: Start: 08-18-[address] Ricki Reyes MD Work Phone: [facility] Work Phone: Start: 08-16-2024 End: 08-16-2024 Emergency department patient visit Dr. Ricki Reyes MD Work Phone: -Emergency Department Work Phone: Start: 07-05-2024 End: 07-05-2024 Refill Tasha A Suppan COMMUNITY RELATIONS OFFICER.AVIATION ELECTRONIC 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: [facility] Comment on above: Refill Request Start: 04-26-2024 End: 04-26-2024 Telephone encounter Tasha A Suppan COMMUNITY RELATIONS OFFICER.AVIATION ELECTRONIC 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: [facility] [place] Start: 04-26-2024 End: 04-26-2024 ambulatory TASHA A SUPPAN Facility:[facility] Start: 04-26-2024 End: 04-26-2024 Office outpatient visit 25 minutes Tasha A Suppan COMMUNITY RELATIONS OFFICER.AVIATION ELECTRONIC 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: [facility] Comment on above: Collagenous colitis (Primary Dx); Screening for depression; Encounter for screening examination for other mental health and behavioral disorders; Primary hypertension; Paroxysmal atrial fibrillation (HCC); DDD (degenerative disc disease), cervical; Chronic renal insufficiency, stage 3 (moderate) (HCC); Vitamin D deficiency; Other iron deficiency anemia; Screening for diabetes mellitus; Screening for lipid disorders; Pressure injury of left foot, stage 1; Stress incontinence Start: 04-08-2024 End: 04-08-2024 Telephone encounter Tasha A Suppan COMMUNITY RELATIONS OFFICER.AVIATION ELECTRONIC 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: [facility] Comment on above: Results Start: 04-06-2024 End: 04-06-2024 Telephone encounter Tasha A Suppan COMMUNITY RELATIONS OFFICER.AVIATION ELECTRONIC 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: [facility] Comment on above: Results Start: 04-05-2024 End: 04-05-2024 Office outpatient visit 15 minutes Tasha A Suppan COMMUNITY RELATIONS OFFICER.AVIATION ELECTRONIC 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: [facility] Comment on above: Acute non-recurrent maxillary sinusitis (Primary Dx); Urinary urgency Start: 04-05-2024 End: 04-05-2024 ambulatory TASHA A SUPPAN Facility:[facility] Start: 12-05-2023 End: 12-05-2023 Office outpatient visit 15 minutes Tasha A Suppan COMMUNITY RELATIONS OFFICER.AVIATION ELECTRONIC 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: [facility] [place] Comment on above: PAD (peripheral piyush ry disease) (HCC) (Primary Dx) Start: 10-27-2023 End: 10-27-2023 Office outpatient visit 25 minutes Tasha Deutsch APRN.AVIATION ELECTRONIC 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: [facility] [place] Comment on above: Paroxysmal atrial fi brillation (HCC) (Primary Dx); DDD (degenerative disc disease), cervical; Primary hypertension; Primary osteoarthritis of right hip; Chronic renal insufficiency, stage 3 (moderate) (HCC); Chronic insomnia; Stress incontinence Start: 09-26-2023 End: 09-26-2023 Patient encounter procedure Sudheer Olguin APRN.CNP Work Phone: [facility] Comment on above: Acute paronychia of toe of left foot (Primary Dx) Start: 08-18-2023 End: 08-18-2023 Patient encounter procedure Tamia Quezada PA-C Work Phone: Orthopaedics Comment on above: Primary osteoarthrit is of left knee (Primary Dx) Start: 08-15-2023 End: 08-15-2023 Office outpatient visit 15 minutes Tasha Deutsch APRN.OUTREACH COORDINATOR Work Phone: [facility] Comment on above: Headache, unspecifie d headache type (Primary Dx); Primary hypertension; Paroxysmal atrial fibrillation (HCC); Dysuria; Primary insomnia Start: 08-11-2023 End: 08-11-2023 Patient encounter procedure Tamia Quezada PA-C Work Phone: Orthopaedics Comment on above: Chronic pain of left knee (Primary Dx) Start: 08-04-2023 End: 08-04-2023 Patient encounter procedure Tamia Quezada PA-C Work Phone: Orthopaedics Comment on above: Chronic pain of left knee (Primary Dx); Primary osteoarthritis of left knee Start: 07-16-2023 ambulatory M Garcia houser PA-C Work Phone: [facility] [place] Comment on above: urinary symptoms Start: 07-16-2023 End: 07-16-2023 Patient encounter procedure Moses Ross MD Work Phone: [facility] Comment on above: Acute right-sided lo w back pain without sciatica (Primary Dx); Primary hypertension; Urinary tract infection with hematuria, site unspecified Start: 07-08-2023 End: 07-08-2023 Patient encounter procedure Hetal Gallardo DO Work Phone: Vascular Surgery Comment on above: Occlusion and stenos is of unspecified carotid artery (Primary Dx); Bilateral carotid artery stenosis; Fibromuscular dysplasia (HCC) Start: 06-25-2023 End: 06-25-2023 ambulatory Julee O'Kirk PT [facility] Comment on above: Acute pain of right shoulder (Primary Dx); Severe pain of left shoulder; Cervicalgia Start: 06-23-2023 End: 06-23-2023 Patient encounter procedure Tamia Quezada PA-C Work Phone: Orthopaedics Comment on above: Chronic pain of left knee (Primary Dx); Primary osteoarthritis of left knee; Patellofemoral pain syndrome of left knee Start: 06-23-2023 End: 06-23-2023 Subsequent hospital visit by physician Ameya [facility] Work Phone: Radiology Comment on above: Pain [R52] Start: 06-18-2023 End: 06-18-2023 ambulatory Julee O'Kirk PT [facility] Comment on above: Acute pain of right shoulder (Primary Dx); Severe pain of left shoulder; Cervicalgia Start: 06-09-2023 Telephone encounter Tasha Deutsch APRN.OUTREACH COORDINATOR Work Phone: [facility] Comment on above: Results Start: 06-04-2023 End: 06-04-2023 ambulatory Julee O'Kirk PT [facility] Comment on above: Acute pain of right shoulder (Primary Dx); Severe pain of left shoulder; Cervicalgia Start: 06-02-2023 End: 06-02-2023 Office outpatient visit 25 minutes Tasha Deutsch APRN.OUTREACH COORDINATOR Work Phone: [facility] Comment on above: DDD (degenerative di sc disease), cervical (Primary Dx); Primary hypertension; Right carotid bruit; Vitamin D deficiency; Vitamin B12 deficiency; Dizziness Start: 05-28-2023 Telephone encounter Breann hansen APRN.CNP Work Phone: [facility] Comment on above: Results Start: 05-28-2023 End: 05-28-2023 ambulatory Julee Becker PT [facility] Comment on above: Acute pain of right shoulder (Primary Dx); Severe pain of left shoulder; Cervicalgia Start: 05-27-2023 End: 05-27-2023 Subsequent hospital visit by physician Ct [facility] ([facility]) Work Phone: Cat Scan Comment on above: Transient cerebral i schemia, unspecified type [G45.9] Start: 05-26-2023 ambulatory Jose G Monroy on PA-C Work Phone: [facility] Comment on above: Dizziness Start: 05-26-2023 Telephone encounter Breann hansen APRN.CNP Work Phone: [facility] Start: 05-26-2023 End: 05-26-2023 Office outpatient visit 25 minutes Breann Schmitz APRN.CNP Work Phone: [facility] Comment on above: Primary hypertension (Primary Dx); Transient cerebral ischemia, unspecified type; Dizziness; Right carotid bruit Start: 05-21-2023 End: 05-21-2023 ambulatory Julee Becker PT [facility] Comment on above: Acute pain of right shoulder (Primary Dx); Severe pain of left shoulder; Cervicalgia Start: 03-31-2023 End: 03-31-2023 Subsequent hospital visit by physician Xr [facility] Work Phone: Radiology Comment on above: Acute pain of right shoulder [M25.511] Start: 12-30-2022 End: 12-30-2022 Patient encounter procedure Sandra Horne MD Work Phone: Cardiology Comment on above: Paroxysmal atrial fi brillation (HCC) (Primary Dx); Primary hypertension Start: 10-24-2022 End: 10-24-2022 Patient encounter procedure Jose G Harrington PA-C Work Phone: [facility] Comment on above: Impacted cerumen of right ear (Primary Dx); Neck pain on right side Start: 10-10-2022 End: 10-10-2022 Patient encounter procedure Jose G Harrington PA-C Work Phone: [facility] Comment on above: Paroxysmal atrial fi brillation (HCC) (Primary Dx); Rotator cuff tear arthropathy, left; Hiatal hernia; Collagenous colitis; Irritable bowel syndrome with diarrhea; Chronic renal insufficiency, stage 3 (moderate) (HCC); Vitamin D deficiency; DDD (degenerative disc disease), cervical; Primary osteoarthritis of right hip; Asymptomatic menopause; Asymptomatic postmenopausal status Start: 04-11-2022 End: 04-11-2022 Patient encounter procedure Jose G Harrington PA-C Work Phone: [facility] Comment on above: Paroxysmal atrial fi brillation (HCC) (Primary Dx); Chronic renal insufficiency, stage 3 (moderate) (HCC); Collagenous colitis; Fall from standing, initial encounter; Vitamin D deficiency; Iron deficiency anemia, unspecified iron deficiency anemia type Start: 04-07-2022 End: 04-07-2022 Emergency department patient visit [facility] Start: 10-29-2021 End: 10-29-2021 Patient encounter procedure Jose G Harrington PA-C Work Phone: [facility] Comment on above: Irritant dermatitis (Primary Dx); Traumatic tear of left rotator cuff, sequela; Collagenous colitis; Chronic renal insufficiency, stage 3 (moderate) (HCC); Vitamin D deficiency Start: 10-24-2021 ambulatory Jazmyne Beltran [facility] Comment on above: Community Monitoring Outreach ([employer] Enrollment - Declined/Not interested in home monitoring) Start: 08-01-2021 Refill Jose G houser PA-C Work Phone: [facility] Comment on above: Refill Request Lab Orders Start: 06-13-2021 End: 06-13-2021 Subsequent hospital visit by physician Xr [facility] Work Phone: Radiology Comment on above: ov Start: 11-12-2016 End: 11-12-2016 Ambulatory [facility] Start: 10-17-2016 End: 10-17-2016 Ambulatory TAMIA LANDIN) [facility] Procedures Date Procedure Procedure Detail Performing Clinician Start: 11-15-2024 CBC AND ELECTRONIC DIFF Jesus S Abukwiek COMMUNITY RELATIONS OFFICER-AVIATION ELECTRONIC 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: Start: 11-15-2024 Complete blood count with white cell differential, automated Jesus S Abukwiek COMMUNITY RELATIONS OFFICER-AVIATION ELECTRONIC 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: Start: 11-15-2024 Creatinine blood Jesus S Abukwiek COMMUNITY RELATIONS OFFICER-AVIATION ELECTRONIC 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: Start: 11-15-2024 Hepatic function panel Reta Galarza COMMUNITY RELATIONS OFFICER-AVIATION ELECTRONIC 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: Start: 11-14-2024 CARDIAC RHYTHM (SCANNED) Other Other OT Start: 11-12-2024 INTERVENTIONAL UPPER ENDOSCOPY Leeroy Pantoja MD Work Phone: Start: 11-12-2024 Radiologic exam ches t single view Stephanie Molinaa DO Work Phone: Start: 11-12-2024 Gases blood ph direc t camilo xcpt pulse oximitry Stephanie Araiza Shammaa DO Work Phone: Start: 11-12-2024 CBC AND ELECTRONIC DIFF Jesus S Abukwiek COMMUNITY RELATIONS OFFICER-AVIATION ELECTRONIC 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: Start: 11-12-2024 Complete blood count with white cell differential, automated Jseus S Abukwiek COMMUNITY RELATIONS OFFICER-AVIATION ELECTRONIC 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: Start: 11-12-2024 Creatinine blood Jesus S Abukwiek COMMUNITY RELATIONS OFFICER-AVIATION ELECTRONIC 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: Start: 11-11-2024 Radiologic exam ches t single view Ailyn Tripathee COMMUNITY RELATIONS OFFICER-AVIATION ELECTRONIC 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: Start: 11-11-2024 Ct head/brain w/o contrast material Ailyn Tripathee COMMUNITY RELATIONS OFFICER-AVIATION ELECTRONIC 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: Start: 11-10-2024 Radiologic exam ches t single view Reta Galarza COMMUNITY RELATIONS OFFICER-AVIATION ELECTRONIC 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: Start: 11-09-2024 FLEXIBLE ENDOSCOPIC EVALUATION OF SWALLOWING Ailyn GuanTranzlogicee COMMUNITY RELATIONS OFFICER-AVIATION ELECTRONIC 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: Start: 11-09-2024 CBC AND ELECTRONIC DIFF Jesus S Abukwiek COMMUNITY RELATIONS OFFICER-AVIATION ELECTRONIC 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: Start: 11-09-2024 Complete blood count with white cell differential, automated Jesus S Abukwiek COMMUNITY RELATIONS OFFICER-AVIATION ELECTRONIC 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: Start: 11-09-2024 Electrolyte panel Jesus S Abukwiek COMMUNITY RELATIONS OFFICER-AVIATION ELECTRONIC 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: Start: 11-06-2024 CBC AND ELECTRONIC DIFF Jesus S Abukwiek COMMUNITY RELATIONS OFFICER-AVIATION ELECTRONIC 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: Start: 11-06-2024 Complete blood count with white cell differential, automated Jesus S Abukwiek COMMUNITY RELATIONS OFFICER-AVIATION ELECTRONIC 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: Start: 11-06-2024 Creatinine blood Jesus S Abukwiek COMMUNITY RELATIONS OFFICER-AVIATION ELECTRONIC 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: Start: 11-04-2024 Creatinine blood Lobito Mix MD Work Phone: Start: 11-03-2024 CBC AND ELECTRONIC DIFF Jesus S Abukwiek COMMUNITY RELATIONS OFFICER-AVIATION ELECTRONIC 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: Start: 11-03-2024 Complete blood count with white cell differential, automated Jesus S Abukwiek COMMUNITY RELATIONS OFFICER-AVIATION ELECTRONIC 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: Start: 11-03-2024 Electrolyte panel Jesus S Abukwiek COMMUNITY RELATIONS OFFICER-AVIATION ELECTRONIC 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: Start: 11-02-2024 Culture bct isol&prs mptv id isolate ea urine David Sutton COMMUNITY RELATIONS OFFICER-AVIATION ELECTRONIC 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: Start: 11-02-2024 EXTRA MICRO David Sutton COMMUNITY RELATIONS OFFICER-AVIATION ELECTRONIC 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: Start: 11-02-2024 URINALYSIS REFLEX TO CULTURE David Sutton COMMUNITY RELATIONS OFFICER-AVIATION ELECTRONIC 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: Start: 11-02-2024 Radiologic exam abdo men 1 view David Sutton COMMUNITY RELATIONS OFFICER-AVIATION ELECTRONIC 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: Start: 11-01-2024 Radiologic exam abdo men 1 view Ousmane Cantu DO Work Phone: Start: 11-01-2024 Glucose measurement, blood Ousmane Cantu DO Work Phone: Start: 11-01-2024 Radiologic exam abdo men 1 view Reta Galarza COMMUNITY RELATIONS OFFICER-AVIATION ELECTRONIC 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: Start: 11-01-2024 Glucose measurement, blood Jeronimo Trujillo MD Work Phone: Start: 10-31-2024 Glucose measurement, blood Jeronimo Trujillo MD Work Phone: Start: 10-31-2024 Glucose measurement, blood Jeronimo Trujillo MD Work Phone: Start: 10-31-2024 Glucose measurement, blood Jeronimo Trujillo MD Work Phone: Start: 10-31-2024 Glucose measurement, blood Jeronimo Trujillo MD Work Phone: Start: 10-31-2024 CBC AND ELECTRONIC DIFF Jesus S Abukwiek COMMUNITY RELATIONS OFFICER-AVIATION ELECTRONIC 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: Start: 10-31-2024 Complete blood count with white cell differential, automated Jesus S Abukwiek COMMUNITY RELATIONS OFFICER-AVIATION ELECTRONIC 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: Start: 10-31-2024 Creatinine blood Jesus S Abukwiek COMMUNITY RELATIONS OFFICER-AVIATION ELECTRONIC 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: Start: 10-31-2024 Glucose measurement, blood Jeronimo Trujillo MD Work Phone: Start: 10-30-2024 Glucose measurement, blood Jeronimo Trujillo MD Work Phone: Start: 10-30-2024 Glucose measurement, blood Jeronimo Trujillo MD Work Phone: Start: 10-30-2024 Glucose measurement, blood Jeronimo Trujillo MD Work Phone: Start: 10-29-2024 Glucose measurement, blood Jeronimo Trujillo MD Work Phone: Start: 10-29-2024 Glucose measurement, blood Jeronimo Trujillo MD Work Phone: Start: 10-29-2024 Glucose measurement, blood Jeronimo Trujillo MD Work Phone: Start: 10-29-2024 Radiologic exam abdo men 1 view Jesus S Abverónica COMMUNITY RELATIONS OFFICER-AVIATION ELECTRONIC 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: Start: 10-29-2024 Glucose measurement, blood Jeronimo Trujillo MD Work Phone: Start: 10-28-2024 Glucose measurement, blood Jeronimo Trujillo MD Work Phone: Start: 10-28-2024 Glucose measurement, blood Jeronimo Trujillo MD Work Phone: Start: 10-28-2024 Glucose measurement, blood Jeronimo Trujillo MD Work Phone: Start: 10-28-2024 CBC AND ELECTRONIC DIFF Jesus S Abwialicia COMMUNITY RELATIONS OFFICER-AVIATION ELECTRONIC 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: Start: 10-28-2024 Complete blood count with white cell differential, automated Jesus S Abverónica COMMUNITY RELATIONS OFFICER-AVIATION ELECTRONIC 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: Start: 10-28-2024 Creatinine blood Jesus S Abverónica COMMUNITY RELATIONS OFFICER-AVIATION ELECTRONIC 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: Start: 10-27-2024 Glucose measurement, blood Jeronimo Trujillo MD Work Phone: Start: 10-27-2024 Glucose measurement, blood Jeronimo Trujillo MD Work Phone: Start: 10-27-2024 Radiologic exam abdo men 1 view David Sutton COMMUNITY RELATIONS OFFICER-AVIATION ELECTRONIC 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: Start: 10-27-2024 Glucose measurement, blood Jeronimo Trujillo MD Work Phone: Start: 10-27-2024 Glucose measurement, blood Jeronimo Trujillo MD Work Phone: Start: 10-26-2024 Glucose measurement, blood Jeronimo Trujillo MD Work Phone: Start: 10-26-2024 Glucose measurement, blood Jeronimo Trujillo MD Work Phone: Start: 10-26-2024 Glucose measurement, blood Jeronimo Trujillo MD Work Phone: Start: 10-26-2024 Radiologic exam swal low function contrast study Jesus Lugo Lizzymartha COMMUNITY RELATIONS OFFICER-AVIATION ELECTRONIC 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: Start: 10-26-2024 SPEECH MODIFIED RALPH UM SWALLOW Ailyn Tripathee COMMUNITY RELATIONS OFFICER-AVIATION ELECTRONIC 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: Start: 10-26-2024 Glucose measurement, blood Jeronimo Trujillo MD Work Phone: Start: 10-26-2024 Culture bct isol&prs mptv id isolate ea urine Ailyn Tripathee COMMUNITY RELATIONS OFFICER-AVIATION ELECTRONIC 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: Start: 10-26-2024 EXTRA MICRO Ailyn Tr ipathee COMMUNITY RELATIONS OFFICER-AVIATION ELECTRONIC 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: Start: 10-26-2024 URINALYSIS REFLEX TO CULTURE Ailyn Tripathee COMMUNITY RELATIONS OFFICER-AVIATION ELECTRONIC 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: Start: 10-26-2024 Glucose measurement, blood Jeronimo Trujillo MD Work Phone: Start: 10-25-2024 Glucose measurement, blood Jeronimo Trujillo MD Work Phone: Start: 10-25-2024 Glucose measurement, blood Mayra Mar MD Work Phone: Start: 10-25-2024 Glucose measurement, blood Mayra Mar MD Work Phone: Start: 10-25-2024 CBC AND ELECTRONIC DIFF Jesus Yang COMMUNITY RELATIONS OFFICER-[facility] Work Phone: Start: 10-25-2024 Complete blood count with white cell differential, automated Jesus Yang COMMUNITY RELATIONS OFFICER-[facility] Work Phone: Start: 10-25-2024 Creatinine blood Jesus Yang COMMUNITY RELATIONS OFFICER-[facility] Work Phone: Start: 10-24-2024 Glucose measurement, blood Mayra Mar MD Work Phone: Start: 10-24-2024 Culture bct isol&prs mptv id isolate ea urine Alex K Corless DO Work Phone: Start: 10-24-2024 EXTRA MICRO Alex K Co rless DO Work Phone: Start: 10-24-2024 URINALYSIS REFLEX TO CULTURE Alex K Corless DO Work Phone: Start: 10-24-2024 Radiologic exam abdo men 1 view David Sutton [facility] Work Phone: Start: 10-24-2024 Glucose measurement, blood Mayra Mar MD Work Phone: Start: 10-24-2024 Glucose measurement, blood Mayra Mar MD Work Phone: Start: 10-24-2024 Glucose measurement, blood Mayra Mar MD Work Phone: Start: 10-23-2024 Glucose measurement, blood Mayra Mar MD Work Phone: Start: 10-23-2024 Glucose measurement, blood Mayra Mar MD Work Phone: Start: 10-23-2024 Glucose measurement, blood Mayra Mar MD Work Phone: Start: 10-23-2024 Glucose measurement, blood Mayra Mar MD Work Phone: Start: 10-22-2024 Glucose measurement, blood Mayra Mar MD Work Phone: Start: 10-22-2024 Glucose measurement, blood Mayra Mar MD Work Phone: Start: 10-22-2024 FLEXIBLE ENDOSCOPIC EVALUATION OF SWALLOWING Jesus Yang COMMUNITY RELATIONS OFFICER-AVIATION ELECTRONIC 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: Start: 10-22-2024 Glucose measurement, blood Mayra Mar MD Work Phone: Start: 10-22-2024 Assay of magnesium Nase rin M Laure COMMUNITY RELATIONS OFFICER-AVIATION ELECTRONIC 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: Start: 10-22-2024 CBC AND ELECTRONIC DIFF Naserin M Laure COMMUNITY RELATIONS OFFICER-AVIATION ELECTRONIC 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: Start: 10-22-2024 Complete blood count with white cell differential, automated Naserin M Laure COMMUNITY RELATIONS OFFICER-AVIATION ELECTRONIC 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: Start: 10-21-2024 Glucose measurement, blood Mayra Mar MD Work Phone: Start: 10-21-2024 Glucose measurement, blood Mayra Mar MD Work Phone: Start: 10-21-2024 Glucose measurement, blood Mayra Mar MD Work Phone: Start: 10-21-2024 Assay of magnesium Nase rin M Laure COMMUNITY RELATIONS OFFICER-AVIATION ELECTRONIC 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: Start: 10-21-2024 CBC AND ELECTRONIC DIFF Naserin M Laure COMMUNITY RELATIONS OFFICER-AVIATION ELECTRONIC 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: Start: 10-21-2024 Complete blood count with white cell differential, automated Naserin M Laure COMMUNITY RELATIONS OFFICER-AVIATION ELECTRONIC 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: Start: 10-20-2024 Glucose measurement, blood Mayra Mar MD Work Phone: Start: 10-20-2024 Glucose measurement, blood Mayra Mar MD Work Phone: Start: 10-20-2024 Glucose measurement, blood Mayra Mar MD Work Phone: Start: 10-20-2024 Assay of magnesium Jacqui Kelsey [facility] Work Phone: Start: 10-20-2024 CBC AND ELECTRONIC DIFF Sebastián Kelsey [facility] Work Phone: Start: 10-20-2024 Complete blood count with white cell differential, automated Sebastián Kelsey [facility] Work Phone: Start: 10-20-2024 Glucose measurement, blood Mayra Mar MD Work Phone: Start: 10-19-2024 Ct head/brain w/o contrast material Krys Mix MD Work Phone: Start: 10-19-2024 Glucose measurement, blood Mayra Mar MD Work Phone: Start: 10-19-2024 FLEXIBLE ENDOSCOPIC EVALUATION OF SWALLOWING Ailyn Rogeathee [facility] Work Phone: Start: 10-19-2024 Glucose measurement, blood Mayra Mar MD Work Phone: Start: 10-19-2024 Blood count platelet automated Bob Ramos MD Work Phone: Start: 10-19-2024 Echo tthrc r-t 2d w/wom-mode compl spec&colr d Sebastián Kelsey [facility] Work Phone: Start: 10-19-2024 Mri brain brain stem w/o w/contrast material David Sutton [facility] Work Phone: Start: 10-19-2024 Glucose measurement, blood Nenad Renard Sher MD Work Phone: Start: 10-19-2024 Bilirubin direct Fawad Addison PA-C Work Phone: Start: 10-19-2024 CBC AND ELECTRONIC DIFF Sebastián Kelsey COMMUNITY RELATIONS OFFICER-AVIATION ELECTRONIC 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: Start: 10-19-2024 Complete blood count with white cell differential, automated Sebastián Kelsey COMMUNITY RELATIONS OFFICER-AVIATION ELECTRONIC 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: Start: 10-19-2024 Iadna s aureus ampli fied probe tq Sebastián Kelsey COMMUNITY RELATIONS OFFICER-AVIATION ELECTRONIC 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: Start: 10-19-2024 MANUAL DIFF Sebastián Kelsey COMMUNITY RELATIONS OFFICER-AVIATION ELECTRONIC 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: Start: 10-18-2024 Radiologic exam abdo men 1 view Sebastián Kelsey COMMUNITY RELATIONS OFFICER-AVIATION ELECTRONIC 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: Start: 10-18-2024 Artl cathj/cannulj mntr/transfusion spx prq Delicia Danielson PA-C Work Phone: Start: 10-18-2024 Glucose measurement, blood Mhd Renard Sher MD Work Phone: Start: 10-18-2024 Ct head/brain w/o contrast material David Sutton COMMUNITY RELATIONS OFFICER-AVIATION ELECTRONIC 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: Start: 10-18-2024 ABORH TYPE RECONFIRMATION Britney Lam DO Work Phone: Start: 10-18-2024 Antibody screen MIHAI HAQUE Comment on above: Performed By: #### X M #### [facility] (DEFAULT) [address] [place] [address] Start: 10-18-2024 End: 10-18-2024 Blood typing serologic abo David Sutton COMMUNITY RELATIONS OFFICER-AVIATION ELECTRONIC 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: Start: 10-18-2024 EXTRA MICRO David Sutton COMMUNITY RELATIONS OFFICER-AVIATION ELECTRONIC 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: Start: 10-18-2024 URINALYSIS REFLEX TO CULTURE David Sutton COMMUNITY RELATIONS OFFICER-AVIATION ELECTRONIC 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: Start: 10-18-2024 Urnls dip stick/tabl et reagent auto microscopy David Ontiverosnett COMMUNITY RELATIONS OFFICER-AVIATION ELECTRONIC 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: Start: 10-18-2024 Ecg routine ecg w/le ast 12 lds trcg only w/o i&r David Vazquez Herman COMMUNITY RELATIONS OFFICER-AVIATION ELECTRONIC 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: Start: 10-18-2024 Bilirubin direct Gary Fraser MD Work Phone: Start: 10-18-2024 CBC AND ELECTRONIC DIFF Gray Fraser MD Work Phone: Start: 10-18-2024 CHM 7 - ED Gary raygoza MD Work Phone: Start: 10-18-2024 Complete blood count with white cell differential, automated Gary Fraser MD Work Phone: Start: 10-18-2024 GOLD TOP TUBE Gary Macias S yash WILLIS Work Phone: Start: 10-18-2024 LAVENDER TOP TUBE Gary Fraser MD Work Phone: Start: 10-18-2024 LT BLUE TOP TUBE Gary Fraser MD Work Phone: Start: 10-18-2024 MANUAL DIFF Gary raygoza MD Work Phone: Start: 10-18-2024 MINT GREEN TOP TUBE Randy Fraser MD Work Phone: Start: 10-18-2024 RAINBOW DRAW Gary raygoza MD Work Phone: Start: 10-18-2024 Ct head/brain w/o contrast material Gary Fraser MD Work Phone: Start: 10-18-2024 Glucose measurement, blood Mayra Mar MD Work Phone: Start: 10-18-2024 CT angiography of he ad and neck Dr. Ricki Reyes MD Work Phone: Start: 10-18-2024 CT of head without contrast Dr. Ricki Reyes MD Work Phone: Start: 10-18-2024 Plain chest X-ray Dr. Ion Reyes MD Work Phone: Start: 10-18-[address] Ricki Reyes MD Work Phone: Start: 10-12-2024 Urnls dip stick/tabl et rgnt auto w/o microscopy Tasha Deutsch COMMUNITY RELATIONS OFFICER.AVIATION ELECTRONIC 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: Start: 09-17-[address] Ricki Reyes MD Work Phone: Start: 09-17-[address] Ricki Reyes MD Work Phone: Start: 09-13-[address] Ricki Reyes MD Work Phone: Start: 09-13-2024 Urnls dip stick/tabl et reagent auto microscopy Dr. Ricki Reyes MD Work Phone: Start: 08-27-2024 Measurement of occul t blood in stool specimen using immunoassay Dr. Ricki Reyes MD Work Phone: Start: 08-23-2024 Vitamin D, 25-hydrox y measurement Dr. Ricki Reyes MD Work Phone: Comment on above: Vitamin D StatusDefi ciency: <20 ng/mL (50nmol/L)Insufficiency: 20-30 ng/mL (50-75 nmol/L)Sufficiency: 30-100 ng/mL (75-250 nmol/L)Toxicity: >100 ng/mL (>250 nmol/L) Start: 08-23-2024 Serum inorganic phos phate measurement Dr. Ricki Reyes MD Work Phone: Start: 08-22-[address] Ricki Reyes MD Work Phone: Start: 08-19-2024 Serum inorganic phos phate measurement Dr. Ricki Reyes MD Work Phone: Start: 08-18-[address] Ricki Reyes MD Work Phone: Start: 08-18-[address] Ricki Reyes MD Work Phone: Start: 08-18-2024 CT angiography of he ad and neck Dr. Ricki Reyes MD Work Phone: Start: 08-18-2024 MRI of brain without contrast Dr. Ricki Reyes MD Work Phone: Start: 08-18-2024 Methadone measuremen t, urine Dr. Ricki Reyes MD Work Phone: Start: 08-18-2024 Urnls dip stick/tabl et reagent auto microscopy Dr. Ricki Reyes MD Work Phone: Start: 08-18-[address] Ricki Reyes MD Work Phone: Start: 08-16-2024 X-ray of chest, PA a nd lateral views Dr. Ricki Reyes MD Work Phone: Start: 08-16-[address] Ricki Reyes MD Work Phone: Start: 08-16-2024 CT of head without contrast Dr. Ricki Reyes MD Work Phone: Start: 08-16-2024 Urnls dip stick/tabl et reagent auto microscopy Dr. Ricki Reyes MD Work Phone: Start: 04-26-2024 Adult depression screening assessment Tasha Deutsch APRN.AVIATION ELECTRONIC 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: Start: 08-18-2023 Arthrocentesis aspir &/inj major jt/bursa w/o us Tamia Vetovitz PA-C Work Phone: Start: 08-11-2023 Arthrocentesis aspir &/inj major jt/bursa w/o us Tamia Vetovitz PA-C Work Phone: Start: 08-04-2023 Arthrocentesis aspir &/inj major jt/bursa w/o us Tamia Vetovitz PA-C Work Phone: Start: 07-16-2023 Urnls dip stick/tabl et rgnt auto w/o microscopy Moses Ross MD Work Phone: Start: 06-23-2023 Arthrocentesis aspir &/inj major jt/bursa w/o us Tamia Quezada PA-C Work Phone: Start: 06-23-2023 Radiologic exam knee complete 4/more views Tamia STALLWORTH-C Work Phone: Start: 05-27-2023 Ct head/brain w/o contrast material Breann Hajade COMMUNITY RELATIONS OFFICER.AVIATION ELECTRONIC 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: Start: 03-31-2023 Radex shoulder compl ete minimum 2 views M Garcia Len PA-C Work Phone: Start: 04-07-2022 Plain chest X-ray Start: 04-07-2022 CT of head without contrast Start: 06-22-2021 End: 06-22-2021 Arthrocentesis aspir&/inj major jt/bursa w/o us Suresh Edwards MD Work Phone: Start: 06-22-2021 End: 06-22-2021 Betamethasone acet&sod phosp Suresh Edwards MD Work Phone: Start: 06-22-2021 End: 06-22-2021 BP scrn no perf at interval Suresh Edwards MD Work Phone: Start: 06-22-2021 End: 06-22-2021 Calc BMI norm parameters Suresh Edwards MD Work Phone: Start: 06-22-2021 End: 06-22-2021 Current tobacco non-user cad cap copd pv dm Suresh Edwards MD Work Phone: Start: 06-22-2021 End: 06-22-2021 Docd contact that fx existed & pt tsted/txd op Suresh Edwards MD Work Phone: Start: 06-22-2021 End: 06-22-2021 Docrev cur meds by yoanna Edwards MD Work Phone: Start: 06-22-2021 End: 06-22-2021 Falls plan of care not done for unspecified reasons Suresh Edwards MD Work Phone: Start: 06-22-2021 End: 06-22-2021 Falls risk not documented - reason not given Suresh Edwards MD Work Phone: Start: 06-22-2021 End: 06-22-2021 Patient encounter procedure Suresh Edwards MD Work Phone: Start: 06-22-2021 End: 06-22-2021 Pos pain assess no f/u doc Suresh Edwards MD Work Phone: Start: 06-22-2021 End: 06-22-2021 Pt falls assess docd 2/> falls/fall w/injury/yr Suresh Edwards MD Work Phone: Start: 06-13-2021 Radiologic examinati on femur minimum 2 views Breann Schmitz APRN.AVIATION ELECTRONIC 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: NEGATED: Highlighted rowStart: 06-22-2021 End: 06-22-2021 Documentation of current medications Belmike Cunningham Plan of Treatment Date Care Activity Detail Author Start: 11-16-2027 Diabetes Screening Diabetes Screening [facility] Start: 11-13-2027 Diabetes Screening Diabetes Screening [facility] Start: 11-04-2027 Diabetes Screening Diabetes Screening [facility] Start: 10-21-2027 Diabetes Screening Diabetes Screening [facility] Start: 10-20-2027 Diabetes Screening Diabetes Screening [facility] Start: 10-05-2027 Diabetes Screening Diabetes Screening [facility] Start: 04-26-2027 Diabetes Screening Diabetes Screening [facility] Start: 08-14-2026 Diabetes Screening Diabetes Screening [facility] Start: 06-04-2026 Diabetes Screening Diabetes Screening [facility] Start: 10-11-2025 DIABETES SCREEN DIABETES SCREEN [facility] Start: 10-11-2025 Diabetes Screening Diabetes Screening [facility] Start: 04-26-2025 Anxiety Screening Anxiety Screening [facility] Start: 04-26-2025 Covid-19 Vaccine () Covid-19 Vaccine () [facility] Comment on above: Postponed from 12/14/2023 (Declined at t his time) Start: 04-26-2025 Depression Screening Depression Screening [facility] Start: 04-26-2025 RSV Vaccine (1 - 1-dose 75+ series) RSV Vaccine (1 - 1-dose 75+ series) [facility] Comment on above: Postponed from 2013 (Declined at t his time) Start: 04-26-2025 Shingrix Vaccine (1 of 2) Shingrix Vaccine (1 of 2) [facility] Comment on above: Postponed from 01/02/1988 (Declined at t his time) Start: 04-26-2025 Urine microalbumin profile DTaP,Tdap,Td Vaccine (1 - Tdap) [facility] Comment on above: Postponed from 1957 (Insurance Cov erage) Start: 02-28-2025 End: 02-28-2025 Patient encounter procedure 02/28/2025 8:20 AM EST Office Visit [facility] [place] [address] [place], [place] [id number] David Wilson MD [address] [phone] Ref; SHERRI for PAF- hlk [facility] [place] Comment on above: Ref; [facility] for PAF- hlk Start: 02-03-2025 End: 02-03-2025 Patient encounter procedure 02/03/2025 4:20 PM EDT Office Visit [facility] [place] [address] [place], [place] [id number] Tasha Deutsch APRN.AVIATION ELECTRONIC WARFARE OPERATOR [address] [place], [place] [address] 6 month follow up Family [facility] Comment on above: 6 month follow up Start: 12-13-2024 Influenza vaccination [facility] Start: 10-25-2024 End: 10-25-2024 Patient encounter procedure 10/25/2024 1:00 PM EDT Office Visit Family [facility] [address] [place], [place] [id number] Tasha Deutsch APRN.AVIATION ELECTRONIC WARFARE OPERATOR [address] [place] [address] 6 month follow up [facility] [place] Comment on above: 6 month follow up Start: 10-18-2024 [facility] Start: 10-18-2024 Oxygen therapy [facility] Start: 10-18-2024 [facility] Start: 10-12-2024 End: 10-12-2024 ambulatory 10/12/2024 3:30 PM EDT OT/PT/Speech Visit [facility] [address] [place] [address] Adali Munroe, CCC-SUPERVISOR OF INSTRUCTION Approving additional speech therapy [facility] Comment on above: Approving additional speech therapy Start: 10-12-2024 End: 01-11-2025 Bacteria identified in Urine by Culture [facility] Work Phone: Comment on above: Expected: 10/12/2024, Expires: Start: 10-12-2024 Evaluation of diagnostic study results [facility] Start: 10-11-2024 [facility]enza [facility] Comment on above: Postponed from 12/14/2023 (Declined at t his time) Start: 10-04-2024 End: 01-03-2025 25-hydroxyvitamin D3 [Mass/volume] in Serum or Plasma [facility] Comment on above: Expected: 10/04/2024, Expires: Start: 10-04-2024 End: 01-03-2025 Basic metabolic 2000 panel - Serum or Plasma [facility] Comment on above: Expected: 10/04/2024, Expires: Start: 10-04-2024 End: 01-03-2025 Cobalamin (Vitamin B12) [Mass/volume] in Serum or Plasma [facility] Comment on above: Expected: 10/04/2024, Expires: Start: 10-04-2024 End: 01-03-2025 Ferritin [Mass/volume] in Serum or Plasma [facility] Comment on above: Expected: 10/04/2024, Expires: Start: 10-04-2024 End: 01-03-2025 Iron and Iron binding capacity panel - Serum or Plasma [facility] Work Phone: Comment on above: Expected: 10/04/2024, Expires: Start: 10-04-2024 End: 10-04-2024 Patient encounter procedure 10/04/2024 10:40 AM EDT Office Visit [facility] [address] [facility] [place] [address] Tasha Deutsch APRN.AVIATION ELECTRONIC WARFARE OPERATOR [address] [place] [address] [facility] f/u stroke 09/19 [facility] Comment on above: [facility] f/u stroke 09/19 Start: 09-19-2024 Patient discharge [facility] Start: 09-17-2024 Speech therapy management [facility] Start: 09-17-2024 Referral to service [facility] Start: 09-15-2024 [facility] Start: 08-30-2024 Catheterization of vein [facility] Start: 08-23-2024 Following clinical pathway protocol [facility] Start: 08-23-2024 [facility] Start: 08-23-2024 Catheterization of vein [facility] Start: 08-22-2024 Recommendation to continue with treatment [facility] Start: 08-22-2024 Urinary bladder training [facility] Start: 08-22-2024 Admission procedure [facility] Start: 08-22-2024 Measuring intake and output [facility] Start: 08-22-2024 Patient referral to dietitian [facility] Start: 08-22-2024 Referral to service [facility] Start: 08-22-2024 Vital signs measurements [facility] Start: 08-22-2024 Wound care [facility] Start: 08-22-2024 [facility] Start: 08-22-2024 Referral to occupational therapist [facility] Start: 08-22-2024 Patient discharge [facility] Start: 08-22-2024 Speech therapy assessment [facility] Start: 08-18-2024 Aspiration precautions [facility] Start: 08-18-2024 Assessment of risk of venous thromboembolism [facility] Start: 08-18-2024 Cardiac monitoring [facility] Start: 08-18-2024 Catheterization of vein [facility] Start: 08-18-2024 Consultation [facility] Start: 08-18-2024 Continuous pulse oximetry [facility] Start: 08-18-2024 Elevation of head of bed [facility] Start: 08-18-2024 Exercises [facility] Start: 08-18-2024 Inhalation therapy procedure [facility] Start: 08-18-2024 Insertion of catheter into peripheral vein [facility] Start: 08-18-2024 Measuring intake and output [facility] Start: 08-18-2024 Notification of physician [facility] Start: 08-18-2024 Patient referral to dietitian [facility] Start: 08-18-2024 Providing care according to standard [facility] Start: 08-18-2024 Provision of activity privileges [facility] Start: 08-18-2024 Referral to occupational therapist [facility] Start: 08-18-2024 Referral to service [facility] Start: 08-18-2024 Speech therapy assessment [facility] Start: 08-18-2024 Telemedicine consultation with patient [facility] Start: 08-18-2024 Tobacco use cessation education [facility] Start: 08-18-2024 End: 08-18-2024 [facility] Start: 08-18-2024 Vital signs measurements [facility] Start: 08-18-2024 Following clinical pathway protocol [facility] Start: 08-18-2024 Hospital admission, emergency, from emergency room, medical nature [facility] Start: 08-18-2024 Bacteria identified in Blood by Culture Blood Culture [facility] Start: 08-18-2024 Bacteria identified in Urine by Culture Urine Culture [facility] Start: 08-18-2024 Blood culture Blood Culture [facility] Start: 08-18-2024 MRI of brain without contrast Brain without Contrast [facility] Start: 08-18-2024 Verification routine [facility] Start: 08-18-2024 Admission procedure [facility] Start: 08-18-2024 End: 08-18-2024 [facility] Start: 08-18-2024 [facility] Start: 08-18-2024 Consultation [facility] Start: 08-16-2024 [facility] Start: 08-16-2024 Emergency department visit moderate severity EMERGENCY DEPT VISIT LOW MDM [facility] Start: 08-16-2024 Iv infusion hydration each additional hour HYDRATE IV INFUSION ADD-ON [facility] Start: 08-16-2024 Iv infusion hydration initial 31 min-1 hour HYDRATION IV INFUSION INIT [facility] Start: 08-02-2024 DIABETES SCREEN DIABETES SCREEN [facility] Start: 04-26-2024 End: 07-26-2024 25-hydroxyvitamin D3 [Mass/volume] in Serum or Plasma [facility] Comment on above: Expected: 04/26/2024, Expires: Start: 04-26-2024 End: 07-26-2024 CBC W Auto Differential panel - Blood [facility] Work Phone: Comment on above: Expected: 04/26/2024, Expires: Start: 04-26-2024 End: 07-26-2024 Cobalamin (Vitamin B12) [Mass/volume] in Serum or Plasma [facility] Comment on above: Expected: 04/26/2024, Expires: Start: 04-26-2024 End: 07-26-2024 Comprehensive metabolic 2000 panel - Serum or Plasma [facility] Comment on above: Expected: 04/26/2024, Expires: Start: 04-26-2024 End: 07-26-2024 Ferritin [Mass/volume] in Serum or Plasma [facility] Comment on above: Expected: 04/26/2024, Expires: Start: 04-26-2024 End: 07-26-2024 Hemoglobin A1c in Blood [facility] Comment on above: Expected: 04/26/2024, Expires: Start: 04-26-2024 End: 07-26-2024 Iron and Iron binding capacity panel - Serum or Plasma [facility] Comment on above: Expected: 04/26/2024, Expires: Start: 04-26-2024 End: 07-26-2024 LIPID PANEL, NONFASTING [facility] Comment on above: Expected: 04/26/2024, Expires: Start: 04-26-2024 End: 07-26-2024 Magnesium [Mass/volume] in Serum or Plasma [facility] Comment on above: Expected: 04/26/2024, Expires: Start: 04-26-2024 End: 04-26-2024 Patient encounter procedure 04/26/2024 10:00 AM EST Office Visit [facility] [address] [place], [place] [id number] Tasha Deutsch APRN.AVIATION ELECTRONIC WARFARE OPERATOR [address] [place] [place] [address] 6 month follow up [facility] Comment on above: 6 month follow up Start: 04-14-2024 Advance Directive Discussion Advance Directive Discussion [facility] Start: 04-14-2024 Medicare Advantage Annual Wellness Visit Medicare Advantage Annual Wellness Visit [facility] Start: 03-31-2024 Covid-19 Vaccine () Covid-19 Vaccine () [facility] Comment on above: Postponed from 12/13/2022 (Declined at t his time) Start: 03-31-2024 Shingrix Vaccine (1 of 2) Shingrix Vaccine (1 of 2) [facility] Comment on above: Postponed from 01/02/1988 (Insurance Cov erage) Start: 03-31-2024 Urine microalbumin profile DTaP,Tdap,Td Vaccine (1 - Tdap) [facility] Comment on above: Postponed from 1957 (Insurance Cov erage) Start: 12-14-2023 Covid-19 Vaccine () Covid-19 Vaccine () [facility] Start: 12-14-2023 Covid-19 Vaccine () Covid-19 Vaccine () [facility] Start: 12-14-2023 Influenza vaccination [facility] Start: 12-14-2023 [facility] Start: 10-29-2023 Screening for osteoporosis [facility] Start: 10-27-2023 End: 10-27-2023 Patient encounter procedure 10/27/2023 9:40 AM EDT Office Visit [facility] [place] [address] [facility] [place] [address] Jose G Harrington PA-C [address] [place] [address] 6 month f/u [facility] Comment on above: 6 month f/u Start: 10-25-2023 COVID-19 VACCINE (5 - Moderna series) COVID-19 VACCINE (5 - Moderna series) [facility] Comment on above: Postponed from 06/09/2022 (Declined at t his time) Start: 10-12-2023 Influenza vaccination Influenza Vaccine (#1) [facility] Comment on above: Postponed from 12/13/2022 (Declined at t his time) Start: 08-18-2023 End: 08-18-2023 Patient encounter procedure 08/18/2023 11:30 AM EDT Office Visit Orthopaedics [address] [place], [place] [id number] Tamia Quezada PA-C [address] [place] [address] left knee Euflexxa #3 Orthopaedics Comment on above: left knee Euflexxa #3 Start: 08-16-2023 DIABETES SCREEN DIABETES SCREEN [facility] Start: 08-15-2023 End: 08-15-2023 Patient encounter procedure 08/15/2023 10:00 AM EDT Office Visit [facility] [address] [place] [address] Tasha Deutsch APRN.OUTREACH COORDINATOR [address] [place] [address] 4 week follow up HTN [facility] Comment on above: 4 week follow up HTN Start: 08-11-2023 End: 08-11-2023 Patient encounter procedure 08/11/2023 11:30 AM EDT Office Visit Orthopaedics [address] [place] [address] Tamia Quezada PA-C [address] [place] [address] left knee Euflexxa #2 [facility] Comment on above: left knee Euflexxa #2 Start: 07-30-2023 End: 10-29-2023 Bacteria identified in Urine by Culture URINE CULTURE Microbiology Routine Acute right-sided low back pain without sciatica Urinary tract infection with hematuria, site unspecified Expected: 07/30/2023, Expires: 10/29/2023 [facility] Work Phone: Comment on above: Expected: 07/30/2023, Expires: Start: 07-30-2023 End: 10-29-2023 Urinalysis complete panel - Urine URINALYSIS, WITH MICROSCOPIC Lab Routine Urinary tract infection with hematuria, site unspecified Expected: 07/30/2023, Expires: 10/29/2023 [facility] Work Phone: Comment on above: Expected: 07/30/2023, Expires: Start: 06-02-2023 End: 09-01-2023 25-hydroxyvitamin D3 [Mass/volume] in Serum or Plasma VITAMIN D 25 HYDROXY Lab Routine Vitamin D deficiency Expected: 06/02/2023, Expires: 09/01/2023 [facility] Work Phone: Comment on above: Expected: 06/02/2023, Expires: 4 Start: 06-02-2023 End: 09-01-2023 CBC W Auto Differential panel - Blood CBC + DIFF Lab Routine DDD (degenerative disc disease), cervical Primary hypertension Expected: 06/02/2023, Expires: 09/01/2023 [facility] Work Phone: Comment on above: Expected: 06/02/2023, Expires: 4 Start: 06-02-2023 End: 09-01-2023 Cobalamin (Vitamin B12) [Mass/volume] in Serum or Plasma VITAMIN B12 BLOOD Lab Routine Vitamin B12 deficiency Expected: 06/02/2023, Expires: 09/01/2023 [facility] Work Phone: Comment on above: Expected: 06/02/2023, Expires: 4 Start: 06-02-2023 End: 09-01-2023 Comprehensive metabolic 2000 panel - Serum or Plasma COMP METABOLIC PANEL Lab Routine Primary hypertension Expected: 06/02/2023, Expires: 09/01/2023 [facility] Work Phone: Comment on above: Expected: 06/02/2023, Expires: Start: 06-02-2023 End: 09-01-2023 Magnesium [Mass/volume] in Serum or Plasma MAGNESIUM BLD Lab Routine Primary hypertension Expected: 06/02/2023, Expires: 09/01/2023 [facility] Work Phone: Comment on above: Expected: 06/02/2023, Expires: 4 Start: 06-02-2023 End: 09-01-2023 Thyrotropin [Units/volume] in Serum or Plasma TSH BLD Lab Routine Dizziness Expected: 06/02/2023, Expires: 09/01/2023 [facility] Work Phone: Comment on above: Expected: 06/02/2023, Expires: Start: 04-14-2023 Behavioral Health Screening Behavioral Health Screening [facility] Start: 04-13-2023 DEPRESSION ASSESSMENT DEPRESSION ASSESSMENT [facility] Comment on above: Postponed from 04/14/2022 (Declined at t his time) Start: 12-13-2022 Influenza vaccination [facility] Start: 10-29-2022 SHINGRIX VACCINE (1 of 2) SHINGRIX VACCINE (1 of 2) [facility] Comment on above: Postponed from 01/02/1988 (Insurance Cov erage) Start: 10-29-2022 Urine microalbumin profile DTAP,TDAP,TD (1 - Tdap) [facility] Comment on above: Postponed from 1957 (Insurance Cov erage) Start: 10-11-2022 Influenza vaccination INFLUENZA (#1) [facility] Comment on above: Postponed from 12/13/2021 (Declined at t his time) Start: 10-10-2022 End: 12-10-2022 25-hydroxyvitamin D3 [Mass/volume] in Serum or Plasma VITAMIN D 25 HYDROXY Lab Routine Vitamin D deficiency Expected: 10/10/2022, Expires: 12/10/2022 [facility] Work Phone: Comment on above: Expected: 10/10/2022, Expires: 3 Start: 10-10-2022 End: 12-10-2022 CBC W Auto Differential panel - Blood CBC + DIFF Lab Routine Chronic renal insufficiency, stage 3 (moderate) (HCC) Iron deficiency anemia, unspecified iron deficiency anemia type Expected: 10/10/2022, Expires: 12/10/2022 [facility] Work Phone: Comment on above: Expected: 10/10/2022, Expires: 3 Start: 10-10-2022 End: 12-10-2022 Comprehensive metabolic 2000 panel - Serum or Plasma COMP METABOLIC PANEL Lab Routine Chronic renal insufficiency, stage 3 (moderate) (HCC) Expected: 10/10/2022, Expires: 12/10/2022 [facility] Work Phone: Comment on above: Expected: 10/10/2022, Expires: 3 Start: 10-10-2022 End: 12-10-2022 Magnesium [Mass/volume] in Serum or Plasma MAGNESIUM BLD Lab Routine Chronic renal insufficiency, stage 3 (moderate) (HCC) Expected: 10/10/2022, Expires: 12/10/2022 [facility] Work Phone: Comment on above: Expected: 10/10/2022, Expires: 3 Start: 04-14-2022 ADVANCE DIRECTIVE DISCUSSION ADVANCE DIRECTIVE DISCUSSION [facility] Start: 04-14-2022 DEPRESSION ASSESSMENT DEPRESSION ASSESSMENT [facility] Start: 04-07-2022 [facility] Work Phone: Start: 12-13-2021 Influenza vaccination [facility] Start: 09-01-2021 Screening for malignant neoplasm of colon [facility] Start: 08-01-2021 End: 10-01-2021 Basic metabolic 2000 panel - Serum or Plasma BASIC METABOLIC PNL Lab Routine Iron deficiency anemia due to chronic blood loss Expected: 08/01/2021, Expires: 10/01/2021 [facility] Work Phone: Comment on above: Expected: 08/01/2021, Expires: 2 Start: 08-01-2021 End: 10-01-2021 CBC panel - Blood by Automated count CBC Lab Routine Chronic renal insufficiency, stage 3 (moderate) (HCC) Expected: 08/01/2021, Expires: 10/01/2021 [facility] Work Phone: Comment on above: Expected: 08/01/2021, Expires: 2 Start: 08-01-2021 End: 10-01-2021 FERRITIN BLD FERRITIN BLD Lab Routine Iron deficiency anemia due to chronic blood loss Expected: 08/01/2021, Expires: 10/01/2021 [facility] Work Phone: Comment on above: Expected: 08/01/2021, Expires: 2 Start: 08-01-2021 End: 10-01-2021 IRON + TIBC IRON + TIBC Lab Routine Iron deficiency anemia due to chronic blood loss Expected: 08/01/2021, Expires: 10/01/2021 [facility] Work Phone: Comment on above: Expected: 08/01/2021, Expires: 2 Start: 06-22-2021 End: 06-22-2021 Patient encounter procedure Appointment [facility] Work Phone: Start: 04-14-2021 ADVANCE DIRECTIVE DISCUSSION ADVANCE DIRECTIVE DISCUSSION [facility] Start: 11-06-2020 COVID-19 VACCINE (3 - Booster for Moderna series) COVID-19 VACCINE (3 - Booster for Moderna series) [facility] Start: 03-20-2015 PNEUMOCOCCAL: 65+ (2 - PCV) PNEUMOCOCCAL: 65+ (2 - PCV) [facility] Start: 2013 RSV Vaccine (1 - 1-dose 75+ series) RSV Vaccine (1 - 1-dose 75+ series) [facility] Start: 2013 [facility] Start: 1998 RSV Vaccine (1 - 1-dose 60+ series) RSV Vaccine (1 - 1-dose 60+ series) [facility] Start: 01-02-1988 SHINGRIX VACCINE (1 of 2) SHINGRIX VACCINE (1 of 2) [facility] Start: 01-02-1988 [facility] Start: 1978 Screening for malignant neoplasm of breast [facility] Start: 1959 Screening for malignant neoplasm of cervix [facility] Start: 1957 Third diphtheria, tetanus and acellular pertussis (DTaP) vaccination [facility] Start: 1957 Urine microalbumin profile [facility] Start: 01-02-1956 Anxiety Screening Anxiety Screening [facility] Start: 01-02-1956 Depression Screening Depression Screening [facility] Start: 1938 Tetanus vaccination [facility] Bacteria identified in Urine by Culture URINE CULTURE Microbiology Routine Acute right-sided low back pain without sciatica Urinary tract infection with hematuria, site unspecified 07/16/2023 2:28 PM EDT [facility] Work Phone: End: 06-24-2024 CT Head WO contrast CT BRAIN WO IVCON Radiology STAT Transient cerebral ischemia, unspecified type 1 Occurrences starting 05/26/2023 until 06/24/2024 [facility] Work Phone: Comment on above: 1 Occurrences starting 05/26/2023 until 06/24/2024 End: 08-06-2024 CT Neck W contrast IV CTA NECK W IVCON Radiology Routine Bilateral carotid artery stenosis Occlusion and stenosis of unspecified carotid artery Fibromuscular dysplasia (HCC) 1 Occurrences starting 07/08/2023 until 08/06/2024 [facility] Work Phone: Comment on above: 1 Occurrences starting 07/08/2023 until 08/06/2024 End: 08-06-2024 CTA Head Arteries W contrast IV CTA HEAD W IVCON Radiology Routine Bilateral carotid artery stenosis Occlusion and stenosis of unspecified carotid artery Fibromuscular dysplasia (HCC) 1 Occurrences starting 07/08/2023 until 08/06/2024 [facility] Work Phone: Comment on above: 1 Occurrences starting 07/08/2023 until 08/06/2024 End: 11-09-2023 DXA-AXIAL SKELETON DXA-AXIAL SKELETON Radiology Routine Asymptomatic menopause 1 Occurrences starting 10/10/2022 until 11/09/2023 [facility] Work Phone: Comment on above: 1 Occurrences starting 10/10/2022 until 11/09/2023 End: 12-25-2023 ECG COMPLETE ECG COMPLETE ECG Routine Paroxysmal atrial fibrillation (HCC) 1 Occurrences starting 12/24/2022 until 12/25/2023 [facility] Work Phone: Comment on above: 1 Occurrences starting 12/24/2022 until 12/25/2023 Hemoglobin A1c/Hemoglobin.total in Blood [facility] OUTSIDE VENDOR CARDI AC OUTPATIENT EXTENDED RHYTHM RECORDING (WITHOUT TELEMETRY) OUTSIDE VENDOR CARDIAC OUTPATIENT EXTENDED RHYTHM RECORDING (WITHOUT TELEMETRY) Holter Routine Paroxysmal atrial fibrillation (HCC) Ordered: 04/11/2022 [facility] Work Phone: Comment on above: Ordered: 04/11/2022 Patient Education [facility] Work Phone: Patient referral [facility] Work Phone: Troponin T.cardiac [Mass/volume] in Serum or Plasma by High sensitivity method [facility] Urinalysis complete panel - Urine URINALYSIS WITH MICROSCOPIC, REFLEX CULTURE Lab Routine Urinary urgency 04/05/2024 4:01 PM EST [facility] Work Phone: Urine culture [facility] End: 05-26-2024 US Carotid arteries - bilateral US CAROTID ARTERIES [facility] Vascular Lab Routine Right carotid bruit 1 Occurrences starting 05/26/2023 until 05/26/2024 [facility] Work Phone: Comment on above: 1 Occurrences starting 05/26/2023 until 05/26/2024 [facility] Immunizations Immunization Date Immunization Notes Care Provider Mile ramon 02-06-2022 COVID-19 vaccine, ag e 12+ yr, bivalent (MODERNA) Julee Last'Kirk PT [facility] 03-12-2021 COVID-19 original vaccine, full dose, monovalent (MODERNA) Julee Last'Kirk PT [facility] 06-09-2020 Covid (Moderna) [facility] 05-12-2020 Covid (Moderna) [facility] 01-28-2018 influenza virus vacc ine, unspecified formulation Sandra Horne MD Work Phone: [facility] 05-24-2015 pneumococcal conjuga te vaccine, 13 valent NA Harrington PA-C Work Phone: [facility] 10-07-2014 tuberculin skin test ; purified protein derivative solution, intradermal Tasha Suppan COMMUNITY RELATIONS OFFICER.AVIATION ELECTRONIC 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: [facility] 03-20-2014 pneumococcal polysaccharide vaccine, 23 valent Jazmyne Bernabe RN [facility] Work Phone: 06-11-2011 tuberculin skin test ; purified protein derivative solution, intradermal Tasha Suppan COMMUNITY RELATIONS OFFICER.AVIATION ELECTRONIC 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: [facility] 06-04-2011 tuberculin skin test ; purified protein derivative solution, intradermal Tasha Suppan COMMUNITY RELATIONS OFFICER.AVIATION ELECTRONIC 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: [facility] 03-16-2007 influenza, seasonal, injectable NA Harrington PA-C Work Phone: [facility] 03-16-2007 pneumococcal polysaccharide vaccine, 23 valent NA Harrington PA-C Work Phone: [facility] Payers Date Payer Category Payer Self-pay [id number] 2024 Private Health Insurance [employer] [id number] 2021 Medicare [employer] MEDICARE A ETNA MEDICARE PPO [id number] 2021-Present [phone] [address] [place] [address] PPO [id number] 2021 Medicare [employer] MEDICARE A ETNA MEDICARE PPO [id number] 2021-Present [phone] [id number] [place] [id number] PPO [id number] 2021 Medicare (Managed Care) [id number] 2021 Private Health Insurance [id number] 1938 Unknown [id number] Medicare MEDICARE PART A B [id number] Unknown [id number] Unknown [id number] Unknown [id number] Unknown [id number] Unknown [id number] Unknown [id number] Unknown [id number] 462 Unknown [id number] 2.840.1.159466.3.579.2. 462 Unknown [id number] 2.840.1.586781.3.579.2. 462 Unknown [id number] 2.840.1.276088.3.579.2. 462 Unknown [id number] 2.840.1.694981.3.579.2. 462 Unknown [id number] 2.840.1.834257.3.579.2. 462 Unknown [id number] 2.840.1.892410.3.579.2. 462 Unknown [id number] 2.840.1.987254.3.579.2. 462 Unknown [id number] 2.840.1.423054.3.579.2. 462 Unknown [id number] 2.840.1.682333.3.579.2. 462 Unknown [id number] 2.840.1.783802.3.579.2. 462 Unknown [id number] 2.840.1.232048.3.579.2. 462 Unknown [id number] 2.840.1.701670.3.579.2. 462 Unknown [id number] 2.840.1.262870.3.579.2. 462 Unknown [id number] 2.16.840.1.570777.3.579.2. 462 Unknown [id number] 2.16.840.1.294496.3.579.2. 462 Unknown [id number] 2.16.840.1.740504.3.579.2. 462 Unknown [id number] 2.16.840.1.466908.3.579.2. 462 Unknown [id number] 2.16.840.1.048242.3.579.2. 462 Unknown [id number] 2.16.840.1.714875.3.579.2. 462 Unknown [id number] 2.16.840.1.609554.3.579.2. 462 Unknown [id number] 2.16.840.1.233642.3.579.2. 462 Unknown [id number] 2.16.840.1.153790.3.579.2. 462 Unknown [id number] 2.16.840.1.273628.3.579.2. 462 Unknown [id number] 2.16.840.1.329444.3.579.2. 462 Social History Date Type Detail Facility Start: 06-22-2021 End: 06-22-2021 Assertion Unknown if ever smoked [facility] Work Phone: Start: 08-27-2011 End: 04-11-2022 Tobacco smoking status NHIS Never smoked tobacco [facility] Start: 08-27-2011 End: 04-11-2022 Tobacco use and exposure Smokeless tobacco non-user [facility] Start: 02-20-2021 End: 10-12-2024 Alcohol intake Current non-drinker of alcohol (finding) [facility] Start: 1940 Sex Assigned At Not on file [facility] Start: 05-14-2021 End: 10-26-2021 Exposure to SARS-CoV-2 (event) Not sure [facility] Start: 1940 Sex Assigned At Female [facility] Start: 10-10-2022 End: 10-24-2022 History of Social function [facility] Work Phone: Start: 10-10-2022 End: 10-24-2022 Tobacco use panel [facility] Work Phone: Start: 03-15-2012 Adult Depression Screening Assessment 0 [facility] Work Phone: Start: 05-02-2022 Gender identity Identifies as female gender (finding) [facility] Start: 05-02-2022 Sexual orientation Heterosexual (finding) [facility] Has the [facility], or [employer] threatened to shut off services in your home in past 12Mo No [facility] Do you belong to any clubs or organizations such as jainism groups, unions, fraternal or athletic groups, or school groups? Yes [facility] Are you now , , , , never or living with a partner? [facility] How often to you hav e a drink containing alcohol? Never [facility] Do you feel stress - tense, restless, nervous, or anxious, or unable to sleep at night because your mind is troubled all the time - these days [OSQ] Not at all [facility] (I/We) worried wheramon er (my/our) food would run out before (I/we) got money to buy more. Never true [facility] Start: 08-22-2024 Tobacco Use Tobacco Use [facility] How hard is it for y ou to pay for the very basics like food, housing, medical care, and heating Not very hard [facility] Start: 11-12-2024 Alcoholic beverage intake Lifetime non-drinker (finding) [facility] Start: 08-18-2024 Sex Female (finding) [facility] Medical Equipment Procedure Code Equipment Code Equipment Origin al Text Equipment Identifier Dates Acetabular Shell [id number] Start: 05-30-2011 Hole Eliminator Screw [id number] Start: 05-30-2011 Whk-No-D-Kind Implant - [id number] Start: 05-30-2011 Comment on above: Description: Corial stem Zeb-Gt-E-Kind Implant - [id number] Start: 05-30-2011 Comment on above: Description: pinnacl e poly shelly jimena Var-We-P-Kind Implant - [id number] Start: 05-30-2011 Comment on above: Description: articul /claude femoral head Corail Stem [id number] Start: 10-03-2014 Acetabular Shell [id number] Start: 10-03-2014 [place] Hole Eliminator Screw [id number] Start: 10-03-2014 Femoral Head [id number] Start: 10-03-2014 Acetabular Liner [id number] Start: 10-03-2014 Goals Date Patient Goal Desired Activity /State Functional Status Date Assessment Result Facility 09-27-2024 Total score [AUDIT-C] 0 09/28/19 12:57 PM EDT User, Dennyalexandert [facility] 09-27-2024 How often to you hav e a drink containing alcohol? Never 09/27/2024 12:57 PM EDT User, Mychart Never [facility] 09-27-2024 Functional status Patient does n ot drink 09/27/2024 12:57 PM EDT User, [employer] Patient does not drink [facility] 09-27-2024 How often do you hav e 6 or more drinks on 1 occasion? Never 09/27/2024 12:57 PM EDT User, Mychart Never [facility] 09-19-2024 Functional status Bathroom [facility] Work Phone: 08-22-2024 Functional status Activity Abili ty With Assist of 1;With Assist of 2 [facility] Work Phone: 08-21-2024 Functional status Bedrest [facility] Work Phone: Mental Status Date Assessment Result Facility 10-18-2024 Cognitive function Voice/Name [facility] Work Phone: 09-19-2024 Cognitive function Voice/Name [facility] Work Phone: 09-18-2024 Cognitive function Appropriate;Cooperativ e [facility] Work Phone: 08-22-2024 Cognitive function Voice/Name [facility] Work Phone: 08-18-2024 Cognitive function Voice/Name [facility] Work Phone: 08-16-2024 Cognitive function Voice/Name [facility] Work Phone: Clinical Notes 07-28-2017 to 01-05-2025 Telephone Encounter - Tasha Deutsch APRN.[facility] - 12/06/2024 7:41 AM EDTTelephone Encounter - Tasha Deutsch APRN.[facility] - 12/06/2024 7:41 AM VINAYAK ChaudhryW - 11/16/2024 10:38 AM EDT Note Date & Type Note Facility 01-05-2025 Note HNO ID: [id number] Author: ?, ?, ? Service: ? Author Type: ? Type: Progress Notes Filed: 01/05/2025 15:46 Note Text: POPULATION HEALTH NAVIGATION OUTREACH Action/I Returned Mychart/Call Patient in nursing home facility Reason for Outreach Returned Call/MyChart Patient Contacted: Spoke to patient/parent/or legal guardian Patient identified by name and date of : Yes Returned call/MyChart actions taken: Patient in nursing home facility Navigation Signature: Ana Luisa Paige January 05, 2025 3:45 PM [facility] 01-05-2025 Note HNO ID: [id number] Author: ?, ?, ? Service: ? Author Type: ? Type: Progress Notes Filed: 01/05/2025 15:02 Note Text: POPULATION HEALTH NAVIGATION OUTREACH Action/FYI - [facility] Wellness: Never Done Flu: Due for dose 1 since 12/13/2024 Called Patient: "Call cannot be completed as dialed" - MyChart Sent Reason for Outreach Care Gap/HCC or Scheduling Wellness Visits Care Gaps due: Medicare Annual Wellness Visit Flu Vaccine Patient Contacted: Unable or unnecessary to reach patient: Unable to leave message MyChart message sent Navigation Signature: Ana Luisa Paige January 05, 2025 2:46 PM [facility] 01-05-2025 Note Patient Outreach (ALYSSA TNAV) BEHZAD HAY ([id number]) 1940 F Date Time Provider Department 01/05/25 TASHA DEUTSCH During your visit today, we recorded the following information about you: Ana Luisa Paige 01/05/2025 3:02 PM Signed POPULATION HEALTH NAVIGATION OUTREACH Action/ - [facility] Wellness: Never Done Flu: Due for dose 1 since 12/13/2024 Called Patient: "Call cannot be completed as dialed" - MyChart Sent Reason for Outreach Care Gap/HCC or Scheduling Wellness Visits Care Gaps due: Medicare Annual Wellness Visit Flu Vaccine Patient Contacted: Unable or unnecessary to reach patient: Unable to leave message [facility] message sent Navigation Signature: Ana Luisa Paige January 05, 2025 2:46 PM Ana Luisa Paige 01/05/2025 3:46 PM Signed POPULATION HEALTH NAVIGATION OUTREACH Action/ Returned Mychart/Call Patient in nursing home facility Reason for Outreach Returned Call/MyChart Patient Contacted: Spoke to patient/parent/or legal guardian Patient identified by name and date of : Yes Returned call/MyChart actions taken: Patient in nursing home facility Navigation Signature: Ana Luisa Paige January 05, 2025 3:45 PM Allergies As of Date: 01/05/2025 Noted Allergy Reaction ADHESIVE TAPE (ROSINS) 08/27/2011 2 - Rash BACTRIM (SULFAMETHOXAZOLE-TRIMETH* 019 2 - Rash MACROBID (NITROFURANTOIN MONOHYD/*09/25/2018 2 - Rash [id number] REDUCTASE INHIBIT*10/06/2014 5 - Intolerance Comments: severe leg pain Date Reviewed: 10/13/2024 Reviewed by: Nj, Yola, ALCAZAR/L - Fully Assessed Reason for Visit: Population Health Navigation Outreach [3910] Cmt: Tiffani Ramos Prescriptions as of 01/05/2025 - cholecalciferol (VITAMIN D3) 1,000 unit tab tablet Take 1,000 Units by mouth once daily. - doxazosin (CARDURA) 4 mg tablet 1 tablet by PEG route once daily. - ipratropium-albuterol (DUONEB) 0.5 mg-3 mg(2.5 mg base)/3 mL nebu Inhale 3 mL as instructed every 6 hours. Unit dose pack - melatonin 3 mg ODT 2 tablets by PEG route daily at bedtime. - Food Supplement, Lactose-Free (PROMOTE, OSMOLITE, TWO YOMI, ENSURE PLUS, ENLIVE) liqd 50 mL by PEG route continuous. 30 ml water every 4 hr - atorvastatin (LIPITOR) 40 mg tablet Take 1 tablet by mouth once daily. - acetaminophen (TYLENOL ARTHRITIS PAIN) 650 mg CR tablet Take 650 mg by mouth once daily. - lisinopril (ZESTRIL) 10 mg tablet Take 10 mg by mouth two times a day. - apixaban (ELIQUIS) 2.5 mg tab(s) Take 1 tablet by mouth two times a day. - metoprolol tartrate, short acting, (LOPRESSOR) 25 mg tablet Take 1 tablet by mouth two times a day. - CAPSICUM, CAYENNE, ORAL Take 1 capsule by mouth once daily. Patient should start on September 22, 2024. 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] 07/28/2017 07/06/2018 Collagenous colitis [K52.831] 12/21/2018 IBS (irritable bowel syndrome) [K58.9] 12/21/2018 Hiatal hernia [K44.9] 09/11/2020 Fall from standing [W19.XXXA] 06/05/2021 Rotator cuff tear arthropathy, left [M75.102, M*10/29/2021 Paroxysmal atrial fibrillation (HCC) [I48.0] 04/11/2022 Primary hypertension [I10] 12/30/2022 Acute pain of right shoulder [M25.511] 04/16/2023 Severe pain of left shoulder [M25.512] 04/16/2023 Cervicalgia [M54.2] 04/16/2023 Encounter Status:Closed by ANA LUISA PAIGE on 01/05/25 [facility] 12-31-2024 Note HNO ID: [id number] Author: ?, ?, ? Service: ? Author Type: ? Type: Progress Notes Filed: 12/31/2024 09:46 Note Text: Patient is identified through a medication adherence outreach initiative based on pharmacy claims data from: [employer] Medication Adherence Category: Hypertension First Review Attribution Status: Questionable attribution, Med not prescribed by [facility] provider, but no [facility] primary care/Patient is seen by a [facility] provider Ishmael Romo [facility] 12-31-2024 Note Patient Outreach (PH POHE) BHARTIBEHZAD Lugo ([id number]) 1940 F Date Time Provider Department 12/31/24 TASHA DEUTSCH During your visit today, we recorded the following information about you: Ishmael Romo 12/31/2024 9:46 AM Signed Patient is identified through a medication adherence outreach initiative based on pharmacy claims data from: [employer] Medication Adherence Category: Hypertension First Review Attribution Status: Questionable attribution, Med not prescribed by [facility] provider, but no [facility] primary care/Patient is seen by a [facility] provider Ishmael Romo [facility] Allergies As of Date: 12/31/2024 Noted Allergy Reaction ADHESIVE TAPE (ROSINS) 08/27/2011 2 - Rash BACTRIM (SULFAMETHOXAZOLE-TRIMETH* 019 2 - Rash MACROBID (NITROFURANTOIN MONOHYD/*09/25/2018 2 - Rash [id number] REDUCTASE INHIBIT*10/06/2014 5 - Intolerance Comments: severe leg pain Date Reviewed: 10/13/2024 Reviewed by: Yola Nj COTA/Filippo - Fully Assessed Reason for Visit: Allied Health Visit [5] Cmt: Medication adherence outreach Prescriptions as of 12/31/2024 - cholecalciferol (VITAMIN D3) 1,000 unit tab tablet Take 1,000 Units by mouth once daily. - doxazosin (CARDURA) 4 mg tablet 1 tablet by PEG route once daily. - ipratropium-albuterol (DUONEB) 0.5 mg-3 mg(2.5 mg base)/3 mL nebu Inhale 3 mL as instructed every 6 hours. Unit dose pack - melatonin 3 mg ODT 2 tablets by PEG route daily at bedtime. - Food Supplement, Lactose-Free (PROMOTE, OSMOLITE, TWO YOMI, ENSURE PLUS, ENLIVE) liqd 50 mL by PEG route continuous. 30 ml water every 4 hr - atorvastatin (LIPITOR) 40 mg tablet Take 1 tablet by mouth once daily. - acetaminophen (TYLENOL ARTHRITIS PAIN) 650 mg CR tablet Take 650 mg by mouth once daily. - lisinopril (ZESTRIL) 10 mg tablet Take 10 mg by mouth two times a day. - apixaban (ELIQUIS) 2.5 mg tab(s) Take 1 tablet by mouth two times a day. - metoprolol tartrate, short acting, (LOPRESSOR) 25 mg tablet Take 1 tablet by mouth two times a day. - CAPSICUM, CAYENNE, ORAL Take 1 capsule by mouth once daily. Patient should start on September 22, 2024. 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 You always have the final say. Please continue low dose aspirin. [facility] 12-06-2024 Miscellaneous Notes Ok. You always have the final say. Please continue low dose aspirin. The discharge summary from her hospital stay said: If unable to get a Watchman resume home Eliquis in 1 month poststroke November 18 and then stop aspirin. I know Behzad did not want to be on blood thinners prior to her stroke. See message and advise. Beth Obregon MA documented in this encounter [facility] 12-03-2024 Telephone encounter Note The discharge summary from her hospital stay said: If unable to get a Watchman resume home Eliquis in 1 month poststroke November 18 and then stop aspirin. I know Behzad did not want to be on blood thinners prior to her stroke. [facility] 12-03-2024 Telephone encounter Note See message and advise. Beth Obregon MA [facility] 11-23-2024 Telephone encounter Note Patient was admitted to [facility] on October 18, 2024 and discharged on November 16, 2024 for basal ganglia hemorrhage Patient is an 84-year-old female with a history of atrial fibrillation on Eliquis last dose October 18 in the morning, hypertension, hyperlipidemia who presented from [facility] with an L. thalamic intracranial hemorrhage. LKW 2100 October 17. Patient awoke at 6 AM October 18 with some right sided weakness was found in her home by her health aide at 9 AM slumped against the wall with right-sided weakness, right facial droop, dysarthria. NIHSS on arrival [facility] ED 16. CTh at [facility] with left thalamic IPH. CTA at [facility] with no acute abnormality. Repeat CTh at [facility] with redemonstration of the left thalamic intracranial hemorrhage and remote left MCA territory infarct. Blood pressure on arrival 146/76. CTh: Acute left thalamic hemorrhage with mild surrounding vasogenic edema. 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 CTA brain/neck no acute findings 6-hour CTh stable exam. Acute left thalamic hemorrhage with mild surrounding vasogenic edema. Left MCA territory infarct 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 MRI of the brain left thalamic hemorrhage noted on October 18 CT head. Punctate right occipital and left cerebellar acute infarct. Remote left MCA territory infarct. CTh follow-up: Stable left thalamic parenchymal hematoma with mildly increased edema. No significant mass effect Transthoracic echocardiogram ejection fraction 61% LDL 73, hemoglobin A1c 5.4%. Hospital complicated by dysphagia, urinary tract infection, agitation. She was treated with amoxicillin for urinary tract infection and agitation improved. She had a PEG tube placed by GI on November 12, 2024 and has been tolerating tube feeds well. Evaluated by OT, PT, speech therapy. She is being discharged to a nursing home facility in stable condition. Discharge plan has been explained to the patient and her family Diagnosis: Acute left thalamic intraparenchymal hemorrhage. 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 A-fib for ischemic strokes. Management at discharge: Aspirin 81 mg daily for secondary stroke reduction started on October 25, 2024. No aspirin indicated after starting on anticoagulation. Referral to cardiology for watchman consideration. If unable to get a Watchman resume home Eliquis in 1 month poststroke November 18 and then stop aspirin. Atorvastatin 40 mg daily Doxazosin for urinary retention as well as hypertension, resume home lisinopril when indicated Continue metoprolol 25 mg twice daily for rate control Tube feeds via PEG tube OT, PT, and speech. Follow-up with neurovascular clinic after discharge Follow-up with PCP in 2 weeks Patient is alert, expressive aphasia, garbled incoherent with some intermittently clear words, follows simple commands, right hemiparesis. November 15: WBC 5.87, hemoglobin 11.5, hematocrit 37.2, platelet count 325 Sodium 140, potassium 4.7, BUN 26, creatinine 0.65, glucose 114 ALT 11, AST 14, alkaline phosphatase 76 echocardiogram reveals: Left ventricular chamber size is normal. Normal wall thickness. Normal global systolic function. Regional wall motion is normal. Ejection fraction is 61%. Diastolic function could not be determined. Right ventricular size is normal. Systolic function normal. Estimated right ventricular systolic pressure 28 mmHg. Fractional area change = 49.7% Left atrial chamber size moderately enlarged Right atrial chamber size is moderately to severely enlarged The inferior vena cava is normal in size. Inferior vena cava structure is normal Mitral valve nonspecific leaflet thickening. Leaflet mobility is normal. Mild annular calcification. Trace regurgitation. No valve stenosis Tricuspid valve normal leaflets. Leaflet mobility is normal. Mild regurgitation. No stenosis. No evidence of pulmonary hypertension Aortic valve trileaflet. Mild leaflet calcification. Cusp sclerosis visualized. Leaflet mobility is normal. No regurgitation. No stenosis. [facility] 11-23-2024 Miscellaneous Notes Patient was admitted to [facility] on October 18, 2024 and discharged on November 16, 2024 for basal ganglia hemorrhage Patient is an 84-year-old female with a history of atrial fibrillation on Eliquis last dose October 18 in the morning, hypertension, hyperlipidemia who presented from [facility] with an L. thalamic intracranial hemorrhage. LKW 2100 October 17. Patient awoke at 6 AM October 18 with some right sided weakness was found in her home by her health aide at 9 AM slumped against the wall with right-sided weakness, right facial droop, dysarthria. NIHSS on arrival [facility] ED 16. [facility]Th [facility] with left thalamic IPH. CTA at OSH with no acute abnormality. Repeat CTh at [facility] with redemonstration of the left thalamic intracranial hemorrhage and remote left MCA territory infarct. Blood pressure on arrival 146/76. CTh: Acute left thalamic hemorrhage with mild surrounding vasogenic edema. 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 CTA brain/neck no acute findings 6-hour CTh stable exam. Acute left thalamic hemorrhage with mild surrounding vasogenic edema. Left MCA territory infarct 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 MRI of the brain left thalamic hemorrhage noted on October 18 CT head. Punctate right occipital and left cerebellar acute infarct. Remote left MCA territory infarct. CTh follow-up: Stable left thalamic parenchymal hematoma with mildly increased edema. No significant mass effect Transthoracic echocardiogram ejection fraction 61% LDL 73, hemoglobin A1c 5.4%. Hospital complicated by dysphagia, urinary tract infection, agitation. She was treated with amoxicillin for urinary tract infection and agitation improved. She had a PEG tube placed by GI on November 12, 2024 and has been tolerating tube feeds well. Evaluated by OT, PT, speech therapy. She is being discharged to a nursing home facility in stable condition. Discharge plan has been explained to the patient and her family Diagnosis: Acute left thalamic intraparenchymal hemorrhage. 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 A-fib for ischemic strokes. Management at discharge: Aspirin 81 mg daily for secondary stroke reduction started on October 25, 2024. No aspirin indicated after starting on anticoagulation. Referral to cardiology for watchman consideration. If unable to get a Watchman resume home Eliquis in 1 month poststroke November 18 and then stop aspirin. Atorvastatin 40 mg daily Doxazosin for urinary retention as well as hypertension, resume home lisinopril when indicated Continue metoprolol 25 mg twice daily for rate control Tube feeds via PEG tube OT, PT, and speech. Follow-up with neurovascular clinic after discharge Follow-up with PCP in 2 weeks Patient is alert, expressive aphasia, garbled incoherent with some intermittently clear words, follows simple commands, right hemiparesis. November 15: WBC 5.87, hemoglobin 11.5, hematocrit 37.2, platelet count 325 Sodium 140, potassium 4.7, BUN 26, creatinine 0.65, glucose 114 ALT 11, AST 14, alkaline phosphatase 76 echocardiogram reveals: Left ventricular chamber size is normal. Normal wall thickness. Normal global systolic function. Regional wall motion is normal. Ejection fraction is 61%. Diastolic function could not be determined. Right ventricular size is normal. Systolic function normal. Estimated right ventricular systolic pressure 28 mmHg. Fractional area change = 49.7% Left atrial chamber size moderately enlarged Right atrial chamber size is moderately to severely enlarged The inferior vena cava is normal in size. Inferior vena cava structure is normal Mitral valve nonspecific leaflet thickening. Leaflet mobility is normal. Mild annular calcification. Trace regurgitation. No valve stenosis Tricuspid valve normal leaflets. Leaflet mobility is normal. Mild regurgitation. No stenosis. No evidence of pulmonary hypertension Aortic valve trileaflet. Mild leaflet calcification. Cusp sclerosis visualized. Leaflet mobility is normal. No regurgitation. No stenosis. documented in this encounter [facility] 11-16-2024 Miscellaneous Notes Stroke patient education has been reviewed and all required elements are complete and personalized. Care plan documentation complete and patient adequate for discharge. Next dose medication details have been added to the AVS as appropriate. Cosigned by Sheree De La Cruz RN at 11/16/2024 3:17 PM EDT Problem: Stroke, Intracerebral Hemorrhage Goal: Optimal Coping Outcome: Adequate for Discharge Goal: Effective Bowel Elimination Outcome: Adequate for Discharge Goal: Optimal Cerebral Tissue Perfusion Outcome: Adequate for Discharge Goal: Optimal Cognitive Function Outcome: Adequate for Discharge Goal: Effective Communication Skills Outcome: Adequate for Discharge Goal: Optimal Functional Ability Outcome: Adequate for Discharge Goal: Optimal Nutrition Intake Outcome: Adequate for Discharge Goal: Optimal Pain Control and Function Outcome: Adequate for Discharge Goal: Effective Oxygenation and Ventilation Outcome: Adequate for Discharge Goal: Improved Sensorimotor Function Outcome: Adequate for Discharge Goal: Safe and Effective Swallow Outcome: Adequate for Discharge Goal: Effective Urinary Elimination Outcome: Adequate for Discharge Problem: PT - General Goals Goal: Ambulation - Patient will ambulate 50 feet with minimal assistance and least restrictive device to improve ability to safely navigate home and community. Outcome: Ongoing Problem: PT - General Goals Goal: Supine <-> Sit Transfers - Patient will perform supine to/from sit transfers with contact guard assistance and with use of hospital bed features in order to improve functional mobility and safety. Outcome: Progressing Goal: Sit <-> Stand Transfers - Patient will perform sit to/from stand transfers with minimal assistance and least restrictive device in order to improve functional mobility and safety. Outcome: Progressing Goal: Standing Endurance/Balance - Patient will perform standing balance tasks for 8 min with minimal assistance and least restrictive device Outcome: Progressing Goal: Sitting Endurance/Balance - Patient will perform seated balance tasks for 10 minutes with contact guard assistance and UE support Outcome: Progressing Problem: PT - General Goals Goal: Ambulation - Patient will ambulate 50 feet with minimal assistance and least restrictive device to improve ability to safely navigate home and community. Outcome: Ongoing Problem: PT - General Goals Goal: Supine <-> Sit Transfers - Patient will perform supine to/from sit transfers with contact guard assistance and with use of hospital bed features in order to improve functional mobility and safety. Outcome: Progressing Goal: Sit <-> Stand Transfers - Patient will perform sit to/from stand transfers with minimal assistance and least restrictive device in order to improve functional mobility and safety. Outcome: Progressing Goal: Standing Endurance/Balance - Patient will perform standing balance tasks for 8 min with minimal assistance and least restrictive device Outcome: Progressing Goal: Sitting Endurance/Balance - Patient will perform seated balance tasks for 10 minutes with contact guard assistance and UE support Outcome: Progressing Problem: OT - ADLs Goal: Grooming - Patient will complete grooming edge of bed with minimal assistance for improved ability to safely complete ADLs. Outcome: Ongoing Problem: OT - Cognition Goal: Cognition Simple ADL - Patient will demonstrate improved cognition, completing simple ADL task for 5 minutes with no greater than min cues required to maintain attention. Outcome: Ongoing Problem: OT - Transfers Goal: Transfers Toilet/ Bedside Commode - Patient will transfer to/from toilet/bedside commode with minimal assistance for improved ability to safely complete ADLs. Outcome: Progressing Problem: OT - Strength/ROM Goal: Neuro Re-education - Patient will participate in neuro re-ed of right upper extremity with minimal assistance and 75% accuracy for improved functional use in ADLs. Outcome: Progressing Problem: Adult Inpatient Plan of Care Goal: Plan of Care Review Outcome: Progressing Goal: Patient-Specific Goal (Individualized) Outcome: Progressing Goal: Absence of Hospital-Acquired Illness or Injury Outcome: Progressing Goal: Optimal Comfort and Wellbeing Outcome: Progressing Goal: Readiness for Transition of Care Outcome: Progressing Problem: Stroke, Intracerebral Hemorrhage Goal: Optimal Coping Outcome: Progressing Goal: Effective Bowel Elimination Outcome: Progressing Goal: Optimal Cerebral Tissue Perfusion Outcome: Progressing Goal: Optimal Cognitive Function Outcome: Progressing Goal: Effective Communication Skills Outcome: Progressing Goal: Optimal Functional Ability Outcome: Progressing Goal: Optimal Nutrition Intake Outcome: Progressing Goal: Optimal Pain Control and Function Outcome: Progressing Goal: Effective Oxygenation and Ventilation Outcome: Progressing Goal: Improved Sensorimotor Function Outcome: Progressing Goal: Safe and Effective Swallow Outcome: Progressing Goal: Effective Urinary Elimination Outcome: Progressing Problem: PT - General Goals Goal: Supine <-> Sit Transfers - Patient will perform supine to/from sit transfers with contact guard assistance and with use of hospital bed features in order to improve functional mobility and safety. Outcome: Ongoing Goal: Sit <-> Stand Transfers - Patient will perform sit to/from stand transfers with minimal assistance and least restrictive device in order to improve functional mobility and safety. Outcome: Ongoing Goal: Standing Endurance/Balance - Patient will perform standing balance tasks for 8 min with minimal assistance and least restrictive device Outcome: Ongoing Goal: Ambulation - Patient will ambulate 50 feet with minimal assistance and least restrictive device to improve ability to safely navigate home and community. Outcome: Ongoing Goal: Sitting Endurance/Balance - Patient will perform seated balance tasks for 10 minutes with contact guard assistance and UE support Outcome: Ongoing Problem: OT - ADLs Goal: Grooming - Patient will complete grooming edge of bed with minimal assistance for improved ability to safely complete ADLs. Outcome: Progressing Problem: OT - Transfers Goal: Transfers Toilet/ Bedside Commode - Patient will transfer to/from toilet/bedside commode with minimal assistance for improved ability to safely complete ADLs. Outcome: Progressing Problem: OT - Strength/ROM Goal: Neuro Re-education - Patient will participate in neuro re-ed of right upper extremity with minimal assistance and 75% accuracy for improved functional use in ADLs. Outcome: Progressing Problem: OT - Cognition Goal: Cognition Simple ADL - Patient will demonstrate improved cognition, completing simple ADL task for 5 minutes with no greater than min cues required to maintain attention. Outcome: Progressing Problem: OT - Vision Goal: Visual Scanning ADL - Patient will employ use of visual compensatory strategies with no greater than min cues in 5/5 trials to increase participation and safety in ADLs. Outcome: Progressing Problem: SUPERVISOR OF INSTRUCTION - Language Goal: Command Following - Patient will complete 1-step commands with 75% accuracy with no cues in order to improve direction following for functional gains in ability to participate more independently in care Outcome: Ongoing Goal: Yes/No Response - Patient will answer yes/no questions related to current situation/environment with 90% accuracy with no cues in order to improve ability to answer questions related to care Outcome: Ongoing Goal: Name Basic Objects/Pictures - Patient will name basic objects/pictures with 75% accuracy, with fading cues in order to improve word-finding and functional communication Outcome: Progressing Goal: Object Identification by Name - Patient will complete identification tasks to select target item by name in field of 2 in 75% of opportunities with fading cues in order to demonstrate readiness for augmentative and alternative communication. Outcome: Met Problem: Dysphagia Goal: BRAYDEN- Patient will complete isometric exercises (5 repetitions with a 10-second interval between the sets for a maximum of 2 sets) to improve pharyngeal swallow given fading verbal cues for form and pacing over x3-5 sessions Outcome: Progressing Goal: Bolus challenge - Patient will accept trials of thin liquids x10-15 trials, given moderate cues for use of strategies to improve bolus control/timing of swallow initiation with no signs of aspiration to determine readiness for repeat study Outcome: Ongoing Goal: Education 1 - Patient and/or caregiver will verbalize 2-3 swallow deficits and ways to reduce risks associated with aspiration when provided minimal cues to improve insight and understanding regarding current oropharyngeal swallow function Outcome: Ongoing Problem: Adult Inpatient Plan of Care Goal: Plan of Care Review Outcome: Progressing Goal: Patient-Specific Goal (Individualized) Outcome: Progressing Goal: Absence of Hospital-Acquired Illness or Injury Outcome: Progressing Goal: Optimal Comfort and Wellbeing Outcome: Progressing Goal: Readiness for Transition of Care Outcome: Progressing Problem: Stroke, Intracerebral Hemorrhage Goal: Optimal Coping Outcome: Progressing Goal: Effective Bowel Elimination Outcome: Progressing Goal: Optimal Cerebral Tissue Perfusion Outcome: Progressing Goal: Optimal Cognitive Function Outcome: Progressing Goal: Effective Communication Skills Outcome: Progressing Goal: Optimal Functional Ability Outcome: Progressing Goal: Optimal Nutrition Intake Outcome: Progressing Goal: Optimal Pain Control and Function Outcome: Progressing Goal: Effective Oxygenation and Ventilation Outcome: Progressing Goal: Improved Sensorimotor Function Outcome: Progressing Goal: Safe and Effective Swallow Outcome: Progressing Goal: Effective Urinary Elimination Outcome: Progressing 2109: "Patient woke up extremely agitated, restless, and inconsolably crying/wailing. Distraction and therapeutic communication attempted." 1x dose 12.5mg Seroquel requested from MD Sean. Patient picking at tele wires, clothes and peg tube. Attempted to redirect but patient continued to pull at wires and clothes. Orders given for 12.5mg Seroquel Problem: Adult Inpatient Plan of Care Goal: Plan of Care Review Outcome: Progressing Goal: Patient-Specific Goal (Individualized) Outcome: Progressing Goal: Absence of Hospital-Acquired Illness or Injury Outcome: Progressing Goal: Optimal Comfort and Wellbeing Outcome: Progressing Goal: Readiness for Transition of Care Outcome: Progressing 0030: "Patient has been wide awake, restless, and emotional since 1899. Is there any way I can give her Seroquel?" DO Mickie notified Problem: Adult Inpatient Plan of Care Goal: Plan of Care Review Outcome: Progressing Goal: Patient-Specific Goal (Individualized) Outcome: Progressing Goal: Absence of Hospital-Acquired Illness or Injury Outcome: Progressing Goal: Optimal Comfort and Wellbeing Outcome: Progressing Goal: Readiness for Transition of Care Outcome: Progressing Problem: Stroke, Intracerebral Hemorrhage Goal: Optimal Coping Outcome: Progressing Goal: Effective Bowel Elimination Outcome: Progressing Goal: Optimal Cerebral Tissue Perfusion Outcome: Progressing Goal: Optimal Cognitive Function Outcome: Progressing Goal: Effective Communication Skills Outcome: Progressing Goal: Optimal Functional Ability Outcome: Progressing Goal: Optimal Nutrition Intake Outcome: Progressing Goal: Optimal Pain Control and Function Outcome: Progressing Goal: Effective Oxygenation and Ventilation Outcome: Progressing Goal: Improved Sensorimotor Function Outcome: Progressing Goal: Safe and Effective Swallow Outcome: Progressing Goal: Effective Urinary Elimination Outcome: Progressing Neurovascular team in to see patient and family this am. They are aware HR 100-143, afib with RVR, NV team to place HR parameter orders. Neurovascular team in to see patient sitter at bedside, no restraints noted, patient not pulling at tubes of lines. Team stated they will discontinue restraints, and continue with sitter. Patient daughter at bedside to receive updates 1946: Patient with HR between 120-140 BPM (a-fib RVR). Rate control dosing held by day team nursing in the morning. Will provide scheduled rate control medications now. Patient with PEG. Will discuss resumption rate of tube feed at 2200. RT called for breathing treatment (patient with wheezing, which has been ongoing); scheduled duoneb held today in afternoon due to patient in procedure. 2137: Patient nearly out-of-bed without alarm triggering (alarm is applied); patient with both legs through top and bottom rails and leaning forward to exit bed. Monitoring has been removed (PEG remains in place). Significant behavioral issues in the past requiring medication, restraints and a sitter. Will discuss severity of sedation that was viewed this AM (no reported desaturation by nursing) and the possible need to resume PM Seroquel for behavioral appropriateness. 2240: Patient HR improved post rate control medications and wheezing improved post duoneb. 2300: Patient with difficulty clearing airway when sleeping. Brief desaturations (85 percent low). Patient awakens readily but when asked to cough and clear secretions, she is unable. Will discuss need for NT suction order in the event it is required. Will hold Seroquel (concern for airway protection) and discuss need for sitter order to maintain patient safety. 2315: Patient unable to self-clear airway. Patient with continued, at times, stridorous breath sounds from upper airway. NT suctioned gently without resistance (blood tinged sputum return). NVS aware. 0135: Patient awake and trying to exit bed multiple times. When I leave the room, patient's legs are immediately over the rail and she attempts to exit bed. No sitter coverage available. Will sit bedside as best able to ensure patient safety. 0335: Patient continues to try to vault side-rail with restraints applied. CHAIR MENDER requested to be pulled from floor to sit with patient given high self-injury risk. GASTROENTEROLOGY PLAN OF CARE NOTE 11/12/2024 EGD for PEG placement Impression: - Normal esophagus. - Z-line regular, 35 cm from the incisors. - Mild Schatzki ring. - LA Grade A reflux esophagitis with no bleeding. - 7 cm hiatal hernia. - Normal stomach. - Normal examined duodenum. - An externally removable PEG placement was successfully completed. - No specimens collected. Recommendation: - Return patient to [facility] for ongoing care. - Tube feeds. - Continue present medications. - You may use the PEG tube for medications now and keep clamped for 1 - 2 hours after giving the medication. - You may start tube feeds after 4 hours. - Do not place gauze or other dressings between skin and external bumper. - If used termite technician, PEG should be changed every 3 - 6 months depending on tube condition. - If no longer needed, the PEG can be removed in 8 - 12 weeks. GI will sign off Leeroy Pantoja MD Fellow Gastroenterology, Hepatology, & Nutrition Please Epic Chat with any questions NV plan of care Notified by RN around 0330 of increased work of breathing with inability to manage own secretions. Has been a recurring problem. Reportedly wheezing during day shift but has never been this severe. RN attempted NT suctioning but patient began having nosebleed, wheezing persisted. O2 saturation stable on room air. BP 119/67. HR 105. Has not been having fever. Patient following a few simple commands intermittently, best in the LUE. Appears uncomfortable and with loud, audible wheezing and gurgling sounds. Per chart review, no apparent history of reactive airway disease. Plan: - STAT CXR - VBG - Albuterol - Duonebs Q6H - Aggressive pulmonary toilet 0530 - breathing treatment started, symptoms and exam gradually improving Lesli Corado DO PGY-3, Neurology Problem: Adult Inpatient Plan of Care Goal: Plan of Care Review Outcome: Progressing Goal: Patient-Specific Goal (Individualized) Outcome: Progressing Goal: Absence of Hospital-Acquired Illness or Injury Outcome: Progressing Goal: Optimal Comfort and Wellbeing Outcome: Progressing Goal: Readiness for Transition of Care Outcome: Progressing Problem: Stroke, Intracerebral Hemorrhage Goal: Optimal Coping Outcome: Progressing Goal: Effective Bowel Elimination Outcome: Progressing Goal: Optimal Cerebral Tissue Perfusion Outcome: Progressing Goal: Optimal Cognitive Function Outcome: Progressing Goal: Effective Communication Skills Outcome: Progressing Goal: Optimal Functional Ability Outcome: Progressing Goal: Optimal Nutrition Intake Outcome: Progressing Goal: Optimal Pain Control and Function Outcome: Progressing Goal: Effective Oxygenation and Ventilation Outcome: Progressing Goal: Improved Sensorimotor Function Outcome: Progressing Goal: Safe and Effective Swallow Outcome: Progressing Goal: Effective Urinary Elimination Outcome: Progressing Problem: Dysphagia Goal: Bolus challenge - Patient will accept trials of thin liquids x10-15 trials, given moderate cues for use of strategies to improve bolus control/timing of swallow initiation with no signs of aspiration to determine readiness for repeat study Outcome: Progressing Problem: Enteral Nutrition Goal: Feeding Tolerance Outcome: Progressing Problem: PT - General Goals Goal: Supine <-> Sit Transfers - Patient will perform supine to/from sit transfers with contact guard assistance and with use of hospital bed features in order to improve functional mobility and safety. Outcome: Progressing Goal: Sit <-> Stand Transfers - Patient will perform sit to/from stand transfers with minimal assistance and least restrictive device in order to improve functional mobility and safety. Outcome: Progressing Goal: Sitting Endurance/Balance - Patient will perform seated balance tasks for 10 minutes with contact guard assistance and UE support Outcome: Progressing Pt's daughter concerned over how sleepy pt is today. Had 1st dose of Seroquel 37.5 mg last evening. Ailyn Mullen, ALEX notified of daughter's concern and went to talk with her about dosage. 1400: Pt remains lethargic. Arouses briefly to tactile stimuli but will not stay awake. Respers labored and deep. Taken to stat CT via bed. 1445: Pt now more awake. Eyes open. Continues with labored respers. Problem: Adult Inpatient Plan of Care Goal: Plan of Care Review Outcome: Progressing Goal: Patient-Specific Goal (Individualized) Outcome: Progressing Goal: Absence of Hospital-Acquired Illness or Injury Outcome: Progressing Goal: Optimal Comfort and Wellbeing Outcome: Progressing Goal: Readiness for Transition of Care Outcome: Progressing Problem: Stroke, Intracerebral Hemorrhage Goal: Optimal Coping Outcome: Progressing Goal: Effective Bowel Elimination Outcome: Progressing Goal: Optimal Cerebral Tissue Perfusion Outcome: Progressing Goal: Optimal Cognitive Function Outcome: Progressing Goal: Effective Communication Skills Outcome: Progressing Goal: Optimal Functional Ability Outcome: Progressing Goal: Optimal Nutrition Intake Outcome: Progressing Goal: Optimal Pain Control and Function Outcome: Progressing Goal: Effective Oxygenation and Ventilation Outcome: Progressing Goal: Improved Sensorimotor Function Outcome: Progressing Goal: Safe and Effective Swallow Outcome: Progressing Goal: Effective Urinary Elimination Outcome: Progressing Problem: Enteral Nutrition Goal: Feeding Tolerance Outcome: Progressing Problem: OT - ADLs Goal: Grooming - Patient will complete grooming edge of bed with minimal assistance for improved ability to safely complete ADLs. Outcome: Ongoing Problem: OT - Cognition Goal: Cognition Simple ADL - Patient will demonstrate improved cognition, completing simple ADL task for 5 minutes with no greater than min cues required to maintain attention. Outcome: Ongoing Problem: OT - Vision Goal: Visual Scanning ADL - Patient will employ use of visual compensatory strategies with no greater than min cues in 5/5 trials to increase participation and safety in ADLs. Outcome: Ongoing Problem: Adult Inpatient Plan of Care Goal: Plan of Care Review Outcome: Progressing Goal: Patient-Specific Goal (Individualized) Outcome: Progressing Goal: Absence of Hospital-Acquired Illness or Injury Outcome: Progressing Goal: Optimal Comfort and Wellbeing Outcome: Progressing Goal: Readiness for Transition of Care Outcome: Progressing Problem: Enteral Nutrition Goal: Feeding Tolerance Outcome: Progressing Nutrition Recommendations and Plan of Care: Continue TF of Osmolite 1.2 at 50 mL/hr. Free water per primary team. Recommend minimum of 30 mL q4 hours x 6 daily to maintain tube patency. Can also consider bolus TF of Osmolite 1.2, 240 mL x 5/day. Monitor TF intake, TF tolerance, GI function, skin integrity, weight changes, and labs. RD to continue to follow. Problem: PT - General Goals Goal: Supine <-> Sit Transfers - Patient will perform supine to/from sit transfers with contact guard assistance and with use of hospital bed features in order to improve functional mobility and safety. Outcome: Progressing Goal: Sit <-> Stand Transfers - Patient will perform sit to/from stand transfers with minimal assistance and least restrictive device in order to improve functional mobility and safety. Outcome: Progressing Goal: Standing Endurance/Balance - Patient will perform standing balance tasks for 8 min with minimal assistance and least restrictive device Outcome: Progressing Problem: Dysphagia Goal: BRAYDEN- Patient will complete isometric exercises (5 repetitions with a 10-second interval between the sets for a maximum of 2 sets) to improve pharyngeal swallow given fading verbal cues for form and pacing over x3-5 sessions 11/09/2024 1249 by Shantal Mclean, SUPERVISOR OF INSTRUCTION Outcome: Ongoing Goal: Bolus challenge - Patient will accept trials of thin liquids x10-15 trials, given moderate cues for use of strategies to improve bolus control/timing of swallow initiation with no signs of aspiration to determine readiness for repeat study 11/09/2024 1249 by Shantal Mclean, SUPERVISOR OF INSTRUCTION Outcome: Ongoing Goal: Swallow Strategy (Oral)- Patient will utilize trained swallow strategies: multiple swallows, liquid wash during PO trials of puree solids/IDDSI 4 with moderate cues to demonstrate improved oral efficiency and readiness for repeat instrumental. 11/09/2024 1249 by ULISES Leos Outcome: Not Met Goal: Education 1 - Patient and/or caregiver will verbalize 2-3 swallow deficits and ways to reduce risks associated with aspiration when provided minimal cues to improve insight and understanding regarding current oropharyngeal swallow function Outcome: Ongoing Problem: OT - ADLs Goal: Grooming - Patient will complete grooming edge of bed with minimal assistance for improved ability to safely complete ADLs. Outcome: Progressing Problem: OT - Strength/ROM Goal: Neuro Re-education - Patient will participate in neuro re-ed of right upper extremity with minimal assistance and 75% accuracy for improved functional use in ADLs. Outcome: Progressing Problem: OT - Cognition Goal: Cognition Simple ADL - Patient will demonstrate improved cognition, completing simple ADL task for 5 minutes with no greater than min cues required to maintain attention. Outcome: Progressing Problem: OT - Vision Goal: Visual Scanning ADL - Patient will employ use of visual compensatory strategies with no greater than min cues in 5/5 trials to increase participation and safety in ADLs. Outcome: Progressing Problem: SUPERVISOR OF INSTRUCTION - Language Goal: Command Following - Patient will complete 1-step commands with 75% accuracy with no cues in order to improve direction following for functional gains in ability to participate more independently in care Outcome: Ongoing Goal: Yes/No Response - Patient will answer yes/no questions related to current situation/environment with 90% accuracy with no cues in order to improve ability to answer questions related to care Outcome: Ongoing Goal: Name Basic Objects/Pictures - Patient will name basic objects/pictures with 75% accuracy, with fading cues in order to improve word-finding and functional communication Outcome: Ongoing Goal: Object Identification by Name - Patient will complete identification tasks to select target item by name in field of 2 in 75% of opportunities with fading cues in order to demonstrate readiness for augmentative and alternative communication. Outcome: Ongoing Problem: Dysphagia Goal: BRAYDEN- Patient will complete isometric exercises (5 repetitions with a 10-second interval between the sets for a maximum of 2 sets) to improve pharyngeal swallow given fading verbal cues for form and pacing over x3-5 sessions Outcome: Ongoing Goal: Bolus challenge - Patient will accept trials of thin liquids x10-15 trials, given moderate cues for use of strategies to improve bolus control/timing of swallow initiation with no signs of aspiration to determine readiness for repeat study Outcome: Ongoing Goal: Swallow Strategy (Oral)- Patient will utilize trained swallow strategies: multiple swallows, liquid wash during PO trials of puree solids/IDDSI 4 with moderate cues to demonstrate improved oral efficiency and readiness for repeat instrumental. Outcome: Ongoing Problem: SUPERVISOR OF INSTRUCTION - Language Goal: Command Following - Patient will complete 1-step commands with 75% accuracy with no cues in order to improve direction following for functional gains in ability to participate more independently in care Outcome: Ongoing Goal: Yes/No Response - Patient will answer yes/no questions related to current situation/environment with 90% accuracy with no cues in order to improve ability to answer questions related to care Outcome: Ongoing Goal: Name Basic Objects/Pictures - Patient will name basic objects/pictures with 75% accuracy, with fading cues in order to improve word-finding and functional communication Outcome: Ongoing Goal: Object Identification by Name - Patient will complete identification tasks to select target item by name in field of 2 in 75% of opportunities with fading cues in order to demonstrate readiness for augmentative and alternative communication. Outcome: Ongoing Problem: Dysphagia Goal: BRAYDEN- Patient will complete isometric exercises (5 repetitions with a 10-second interval between the sets for a maximum of 2 sets) to improve pharyngeal swallow given fading verbal cues for form and pacing over x3-5 sessions Outcome: Ongoing Goal: Bolus challenge - Patient will accept trials of thin liquids x10-15 trials, given moderate cues for use of strategies to improve bolus control/timing of swallow initiation with no signs of aspiration to determine readiness for repeat study Outcome: Ongoing Goal: Swallow Strategy (Oral)- Patient will utilize trained swallow strategies: multiple swallows, liquid wash during PO trials of puree solids/IDDSI 4 with moderate cues to demonstrate improved oral efficiency and readiness for repeat instrumental. Outcome: Ongoing Problem: Adult Inpatient Plan of Care Goal: Plan of Care Review Outcome: Progressing Goal: Patient-Specific Goal (Individualized) Outcome: Progressing Goal: Absence of Hospital-Acquired Illness or Injury Outcome: Progressing Goal: Optimal Comfort and Wellbeing Outcome: Progressing 11/06/24 1415 11/06/24 1417 Bladder Management Bladder Management Action Bladder Scan Intermittent Urethral Catheterization Intermittent/Straight Catheter Urine Output (mL) -- 750 Bladder Scan Amount (mL) 570 mL -- Bladder Scan - Timing random -- Bladder Scan Tolerated yes -- Bladder Scan Action Taken other (see comments) (cath) -- Problem: Adult Inpatient Plan of Care Goal: Plan of Care Review Outcome: Progressing Goal: Patient-Specific Goal (Individualized) Outcome: Progressing Goal: Absence of Hospital-Acquired Illness or Injury Outcome: Progressing Goal: Optimal Comfort and Wellbeing Outcome: Progressing Goal: Readiness for Transition of Care Outcome: Progressing Problem: Adult Inpatient Plan of Care Goal: Plan of Care Review Outcome: Progressing Goal: Patient-Specific Goal (Individualized) Outcome: Progressing Goal: Absence of Hospital-Acquired Illness or Injury Outcome: Progressing Goal: Optimal Comfort and Wellbeing Outcome: Progressing Goal: Readiness for Transition of Care Outcome: Progressing Problem: Stroke, Intracerebral Hemorrhage Goal: Optimal Coping Outcome: Progressing Goal: Effective Bowel Elimination Outcome: Progressing Goal: Optimal Pain Control and Function Outcome: Progressing Goal: Effective Oxygenation and Ventilation Outcome: Progressing Problem: Adult Inpatient Plan of Care Goal: Plan of Care Review Outcome: Progressing Goal: Patient-Specific Goal (Individualized) Outcome: Progressing Goal: Absence of Hospital-Acquired Illness or Injury Outcome: Progressing Problem: Stroke, Intracerebral Hemorrhage Goal: Effective Oxygenation and Ventilation Outcome: Progressing Images from the original note were not included. NEUROLOGY CONSULTATION BRIEF UPDATE NOTE Contacted by nursing regarding continued restlessness from the patient overnight. Also reported that the patient told the sitter she was having chest pain. EKG ordered and reviewed: Normal sinus rhythm with QTc 438. Vitals review: HR is within normal range (70s-80) , BP 147/71. RR is normal and O2 sat >95% on RA. Trop ordered and pending. Given that HR, RR, and O2 sat are wnl there is low concern for PE at this time. Plan: - Follow-up troponin - PRN tylenol - Give additional dose of Seroquel Please call the Neurovascular team on [employer] with questions. Signed, Krys Mix MD Neurology, PGY3 Problem: Stroke, Intracerebral Hemorrhage Goal: Optimal Coping Outcome: Not Progressing Goal: Effective Bowel Elimination Outcome: Progressing Goal: Optimal Cerebral Tissue Perfusion Outcome: Progressing Goal: Optimal Cognitive Function Outcome: Not Progressing Goal: Effective Communication Skills Outcome: Not Progressing Goal: Optimal Functional Ability Outcome: Not Progressing Goal: Optimal Nutrition Intake Outcome: Not Progressing Goal: Optimal Pain Control and Function Outcome: Progressing Goal: Effective Oxygenation and Ventilation Outcome: Progressing Goal: Improved Sensorimotor Function Outcome: Progressing Goal: Safe and Effective Swallow Outcome: Not Progressing Goal: Effective Urinary Elimination Outcome: Not Progressing Problem: Adult Inpatient Plan of Care Goal: Plan of Care Review Outcome: Progressing Goal: Patient-Specific Goal (Individualized) Outcome: Progressing Goal: Absence of Hospital-Acquired Illness or Injury Outcome: Progressing Goal: Optimal Comfort and Wellbeing Outcome: Progressing Goal: Readiness for Transition of Care Outcome: Progressing Problem: OT - ADLs Goal: Grooming - Patient will complete grooming edge of bed with minimal assistance for improved ability to safely complete ADLs. Outcome: Progressing Problem: OT - Transfers Goal: Transfers Toilet/ Bedside Commode - Patient will transfer to/from toilet/bedside commode with minimal assistance for improved ability to safely complete ADLs. Outcome: Progressing Problem: OT - Strength/ROM Goal: Neuro Re-education - Patient will participate in neuro re-ed of right upper extremity with minimal assistance and 75% accuracy for improved functional use in ADLs. Outcome: Progressing Problem: OT - Cognition Goal: Cognition Simple ADL - Patient will demonstrate improved cognition, completing simple ADL task for 5 minutes with no greater than min cues required to maintain attention. Outcome: Progressing Problem: OT - Vision Goal: Visual Scanning ADL - Patient will employ use of visual compensatory strategies with no greater than min cues in 5/5 trials to increase participation and safety in ADLs. Outcome: Progressing Problem: PT - General Goals Goal: Supine <-> Sit Transfers - Patient will perform supine to/from sit transfers with contact guard assistance and with use of hospital bed features in order to improve functional mobility and safety. Outcome: Progressing Goal: Sit <-> Stand Transfers - Patient will perform sit to/from stand transfers with minimal assistance and least restrictive device in order to improve functional mobility and safety. Outcome: Progressing Goal: Standing Endurance/Balance - Patient will perform standing balance tasks for 8 min with minimal assistance and least restrictive device Outcome: Progressing Goal: Ambulation - Patient will ambulate 50 feet with minimal assistance and least restrictive device to improve ability to safely navigate home and community. Outcome: Progressing Problem: SUPERVISOR OF INSTRUCTION - Language Goal: Command Following - Patient will complete 1-step commands with 75% accuracy with no cues in order to improve direction following for functional gains in ability to participate more independently in care Outcome: Progressing Goal: Yes/No Response - Patient will answer yes/no questions related to current situation/environment with 90% accuracy with no cues in order to improve ability to answer questions related to care Outcome: Ongoing Goal: Name Basic Objects/Pictures - Patient will name basic objects/pictures with 75% accuracy, with fading cues in order to improve word-finding and functional communication Outcome: Progressing Goal: Object Identification by Name - Patient will complete identification tasks to select target item by name in field of 2 in 75% of opportunities with fading cues in order to demonstrate readiness for augmentative and alternative communication. Outcome: Ongoing Problem: Dysphagia Goal: BRAYDEN- Patient will complete isometric exercises (5 repetitions with a 10-second interval between the sets for a maximum of 2 sets) to improve pharyngeal swallow given fading verbal cues for form and pacing over x3-5 sessions Outcome: Progressing Goal: Bolus challenge - Patient will accept trials of thin liquids x10-15 trials, given moderate cues for use of strategies to improve bolus control/timing of swallow initiation with no signs of aspiration to determine readiness for repeat study Outcome: Ongoing Goal: Swallow Strategy (Oral)- Patient will utilize trained swallow strategies: multiple swallows, liquid wash during PO trials of puree solids/IDDSI 4 with moderate cues to demonstrate improved oral efficiency and readiness for repeat instrumental. Outcome: Ongoing Problem: Adult Inpatient Plan of Care Goal: Plan of Care Review Outcome: Progressing Goal: Patient-Specific Goal (Individualized) Outcome: Progressing Goal: Absence of Hospital-Acquired Illness or Injury Outcome: Progressing Goal: Optimal Comfort and Wellbeing Outcome: Progressing Goal: Readiness for Transition of Care Outcome: Progressing Problem: Stroke, Intracerebral Hemorrhage Goal: Optimal Coping Outcome: Progressing Goal: Effective Bowel Elimination Outcome: Progressing Goal: Optimal Cerebral Tissue Perfusion Outcome: Progressing Goal: Optimal Cognitive Function Outcome: Progressing Goal: Effective Communication Skills Outcome: Progressing Problem: SUPERVISOR OF INSTRUCTION - Language Goal: Command Following - Patient will complete 1-step commands with 75% accuracy with no cues in order to improve direction following for functional gains in ability to participate more independently in care Outcome: Ongoing Goal: Yes/No Response - Patient will answer yes/no questions related to current situation/environment with 90% accuracy with no cues in order to improve ability to answer questions related to care Outcome: Ongoing Goal: Name Basic Objects/Pictures - Patient will name basic objects/pictures with 75% accuracy, with fading cues in order to improve word-finding and functional communication Outcome: Ongoing Goal: Object Identification by Name - Patient will complete identification tasks to select target item by name in field of 2 in 75% of opportunities with fading cues in order to demonstrate readiness for augmentative and alternative communication. Outcome: Ongoing Problem: Dysphagia Goal: BRAYDEN- Patient will complete isometric exercises (5 repetitions with a 10-second interval between the sets for a maximum of 2 sets) to improve pharyngeal swallow given fading verbal cues for form and pacing over x3-5 sessions Outcome: Ongoing Goal: Bolus challenge - Patient will accept trials of thin liquids x10-15 trials, given moderate cues for use of strategies to improve bolus control/timing of swallow initiation with no signs of aspiration to determine readiness for repeat study Outcome: Ongoing Goal: Swallow Strategy (Oral)- Patient will utilize trained swallow strategies: multiple swallows, liquid wash during PO trials of puree solids/IDDSI 4 with moderate cues to demonstrate improved oral efficiency and readiness for repeat instrumental. Outcome: Ongoing Problem: Adult Inpatient Plan of Care Goal: Plan of Care Review Outcome: Progressing Problem: Adult Inpatient Plan of Care Goal: Patient-Specific Goal (Individualized) Outcome: Progressing Problem: Adult Inpatient Plan of Care Goal: Absence of Hospital-Acquired Illness or Injury Outcome: Progressing Problem: Adult Inpatient Plan of Care Goal: Optimal Comfort and Wellbeing Outcome: Progressing Problem: Adult Inpatient Plan of Care Goal: Readiness for Transition of Care Outcome: Progressing Problem: Stroke, Intracerebral Hemorrhage Goal: Optimal Coping Outcome: Progressing Problem: Stroke, Intracerebral Hemorrhage Goal: Effective Bowel Elimination Outcome: Progressing Problem: Stroke, Intracerebral Hemorrhage Goal: Optimal Cerebral Tissue Perfusion Outcome: Progressing Problem: Stroke, Intracerebral Hemorrhage Goal: Optimal Cognitive Function Outcome: Progressing Problem: Stroke, Intracerebral Hemorrhage Goal: Effective Communication Skills Outcome: Progressing Problem: Stroke, Intracerebral Hemorrhage Goal: Optimal Functional Ability Outcome: Progressing Problem: Stroke, Intracerebral Hemorrhage Goal: Optimal Nutrition Intake Outcome: Progressing Problem: Stroke, Intracerebral Hemorrhage Goal: Optimal Pain Control and Function Outcome: Progressing Problem: Stroke, Intracerebral Hemorrhage Goal: Effective Oxygenation and Ventilation Outcome: Progressing Problem: Stroke, Intracerebral Hemorrhage Goal: Improved Sensorimotor Function Outcome: Progressing Problem: Stroke, Intracerebral Hemorrhage Goal: Safe and Effective Swallow Outcome: Progressing Problem: Stroke, Intracerebral Hemorrhage Goal: Effective Urinary Elimination Outcome: Progressing Problem: Enteral Nutrition Goal: Feeding Tolerance Outcome: Progressing Nutrition Recommendations and Plan of Care: Continue TF of Osmolite 1.2 at 50 mL/hr. Free water per primary team. Recommend minimum of 30 mL q4 hours x 6 daily to maintain tube patency. Or, can provide 75 mL x 6/day q4 hours to meet hydration needs. Recommend decreasing bowel regimen. Monitor TF intake, TF tolerance, GI function, skin integrity, weight changes, and labs. RD to continue to follow. Images from the original note were not included. WOC/ET Nursing Consult/Evaluation Note Evaluated Behzad Hay for suspected pressure injuries to bilateral feet and heels. Patient visited at bedside with sitter present. Patient is sleeping soundly - reportedly had been agitated most of the night and did not sleep. Patient does stir with verbal stimuli and pulls away from tactile stimuli. Discussed with primary nurse who is agreeable with skin assessment. No past medical history on file. Past Surgical History: Procedure Laterality Date HIP REPLACEMENT Bilateral Description of wound: Bilateral feet and heels with blanchable erythema present. No ulceration, blister, nor injury to skin present. Patient is visualized gyrating their heels on bed surface, and attempts to cross their legs. Pillow support applied using Stanfield pillow beneath feet and heels and standard pillow between knees. Left buttock with small area of blanchable erythema. Recommend thin layer of Zinc oxide to the site twice daily. Recommend addition of low air loss mattress and frequent repositioning. Recommendation: Recommend continuing pressure reduction techniques including frequent repositioning, minimizing elevation of the head of the bed, and encouraging patient to be out of bed as much as possible (use pressure reducing wheelchair cushion when sitting in chair). Apply TruVue boots or float heels on pillows bilaterally while in bed for pressure offloading protection. Optimize nutrition to improve skin and wound outcomes. Increase protein intake as tolerated. Consider supplemental zinc, vitamin C (or multivitamin) to promote wound healing. Patient currently on HARVINDER AP support surface. Recommend minimizing layers between patient and support surface to maximize drying microclimate created by support surface. Bed Surface: Standard mattress (Low Air Loss Alternating Pressure Redistribution mattress to be ordered.) Discharge Recommendations: Patient may continue care as described above at discharge. See image(s) below: Dani Skin Assessment: Dani Risk Assessment Sensory Perception: 2-->very limited Moisture: 3-->occasionally moist Activity: 2-->chairfast Mobility: 2-->very limited Nutrition: 3-->adequate Friction and Shear: 2-->potential problem Dani Score: 14 Dani Score: Dani Score: 14 Body mass index is 22.28 kg/m . Total time spent in assessment and treatment of patient: 25 minutes spent providing patient care. LABS: Albumin Date Value Ref Range Status 10/19/2024 3.9 3.5 - 5.0 g/dL Final No results found for: PREALBUMIN Wound Documentation: 11/02/24 1030 Plan Problem other (see comments) (Blanchable erythema to feet/heels) Current Plan heel protection Visit Type Consult with RN Supportive Measures bed therapy;elevate extremitiy;position off wound;turn every 2 hours;optimize nutrition Discharge Plans rehabiliation center [facility] Visit Frequency e;PRN Last Date Seen 11/02/24 RN notified of assessment and plan. Please page #[phone] or reconsult with any further needs. Problem: Adult Inpatient Plan of Care Goal: Plan of Care Review Outcome: Progressing Goal: Patient-Specific Goal (Individualized) Outcome: Progressing Goal: Absence of Hospital-Acquired Illness or Injury Outcome: Progressing Goal: Optimal Comfort and Wellbeing Outcome: Progressing Goal: Readiness for Transition of Care Outcome: Progressing Problem: Stroke, Intracerebral Hemorrhage Goal: Optimal Coping Outcome: Progressing Goal: Effective Bowel Elimination Outcome: Progressing Goal: Optimal Cerebral Tissue Perfusion Outcome: Progressing Goal: Optimal Cognitive Function Outcome: Progressing Goal: Effective Communication Skills Outcome: Progressing Goal: Optimal Functional Ability Outcome: Progressing Goal: Optimal Nutrition Intake Outcome: Progressing Goal: Optimal Pain Control and Function Outcome: Progressing Goal: Effective Oxygenation and Ventilation Outcome: Progressing Goal: Improved Sensorimotor Function Outcome: Progressing Goal: Safe and Effective Swallow Outcome: Progressing Goal: Effective Urinary Elimination Outcome: Progressing Brief GI/Hepatology Update: Behzad Hay is a 84 y.o. female who has a past history notable for afib on eliquis (LD 7/7 AM), HTN, HLD who presents from [place] with L thalamic ICH with hosp course c/b Afib-RVR. UA concerning for UTI, started on Ceftriaxone. We are consulted for PEG tube placement. Per chart review today, patient pulled out her DHT on 10/29. She is now in bilateral billy mitts and has required a sitter. DHT replaced today. We will sign off in setting of ongoing agitation that precludes PEG placement. Please notify our team once agitation improves and we can determine timing of PEG. Laron Buchanan MD Division of Gastroenterology, Hepatology, and Nutrition Clinical Fellow PGY-4 Pager: [phone] Problem: Adult Inpatient Plan of Care Goal: Plan of Care Review Outcome: Progressing Goal: Patient-Specific Goal (Individualized) Outcome: Progressing Goal: Absence of Hospital-Acquired Illness or Injury Outcome: Progressing Goal: Optimal Comfort and Wellbeing Outcome: Progressing Goal: Readiness for Transition of Care Outcome: Progressing Problem: Stroke, Intracerebral Hemorrhage Goal: Optimal Coping Outcome: Progressing Goal: Effective Bowel Elimination Outcome: Progressing Goal: Optimal Cerebral Tissue Perfusion Outcome: Progressing Goal: Optimal Cognitive Function Outcome: Progressing Goal: Effective Communication Skills Outcome: Progressing Goal: Optimal Functional Ability Outcome: Progressing Goal: Optimal Nutrition Intake Outcome: Progressing Goal: Optimal Pain Control and Function Outcome: Progressing Goal: Effective Oxygenation and Ventilation Outcome: Progressing Goal: Improved Sensorimotor Function Outcome: Progressing Goal: Safe and Effective Swallow Outcome: Progressing Goal: Effective Urinary Elimination Outcome: Progressing Problem: Adult Inpatient Plan of Care Goal: Plan of Care Review Outcome: Progressing Goal: Patient-Specific Goal (Individualized) Outcome: Progressing Goal: Absence of Hospital-Acquired Illness or Injury Outcome: Progressing Goal: Optimal Comfort and Wellbeing Outcome: Progressing Goal: Readiness for Transition of Care Outcome: Progressing Problem: Stroke, Intracerebral Hemorrhage Goal: Effective Bowel Elimination Outcome: Progressing Goal: Optimal Cerebral Tissue Perfusion Outcome: Progressing Goal: Optimal Cognitive Function Outcome: Progressing Goal: Effective Communication Skills Outcome: Progressing Goal: Optimal Functional Ability Outcome: Progressing Goal: Optimal Nutrition Intake Outcome: Progressing Goal: Optimal Pain Control and Function Outcome: Progressing Goal: Effective Oxygenation and Ventilation Outcome: Progressing Goal: Improved Sensorimotor Function Outcome: Progressing Goal: Safe and Effective Swallow Outcome: Progressing Goal: Effective Urinary Elimination Outcome: Progressing Problem: Adult Inpatient Plan of Care Goal: Plan of Care Review Outcome: Progressing Goal: Patient-Specific Goal (Individualized) Outcome: Progressing Goal: Absence of Hospital-Acquired Illness or Injury Outcome: Progressing Goal: Optimal Comfort and Wellbeing Outcome: Progressing Goal: Readiness for Transition of Care Outcome: Progressing Problem: Stroke, Intracerebral Hemorrhage Goal: Optimal Coping Outcome: Progressing Goal: Effective Bowel Elimination Outcome: Progressing Goal: Optimal Cerebral Tissue Perfusion Outcome: Progressing Goal: Optimal Cognitive Function Outcome: Progressing Goal: Effective Communication Skills Outcome: Progressing Goal: Optimal Functional Ability Outcome: Progressing Goal: Optimal Nutrition Intake Outcome: Progressing Goal: Optimal Pain Control and Function Outcome: Progressing Goal: Effective Oxygenation and Ventilation Outcome: Progressing Goal: Improved Sensorimotor Function Outcome: Progressing Goal: Safe and Effective Swallow Outcome: Progressing Goal: Effective Urinary Elimination Outcome: Progressing Problem: Adult Inpatient Plan of Care Goal: Plan of Care Review Outcome: Progressing Goal: Patient-Specific Goal (Individualized) Outcome: Progressing Goal: Absence of Hospital-Acquired Illness or Injury Outcome: Progressing Goal: Optimal Comfort and Wellbeing Outcome: Progressing Goal: Readiness for Transition of Care Outcome: Progressing Tiffany 1086/Perez, Bharti, Info: Pt was last straight cathed at 6 o'clock this morning and she has not voided today. Her bladder scan is reading 267 ml. Orders are to cath >400. Please advise. Thanks, Arianna Wong RN, Ph: [phone] Above page sent to VIDYA Michelle. 10/29/24 1820 Bladder Management Bladder Management Action Bladder Scan Bladder Scan Amount (mL) 267 mL Bladder Scan - Timing random Bladder Scan Tolerated yes Bladder Scan Action Taken continue to monitor Problem: Adult Inpatient Plan of Care Goal: Plan of Care Review Outcome: Progressing Goal: Patient-Specific Goal (Individualized) Outcome: Progressing Goal: Absence of Hospital-Acquired Illness or Injury Outcome: Progressing Goal: Optimal Comfort and Wellbeing Outcome: Progressing Goal: Readiness for Transition of Care Outcome: Progressing Problem: PT - General Goals Goal: Supine <-> Sit Transfers - Patient will perform supine to/from sit transfers with contact guard assistance and with use of hospital bed features in order to improve functional mobility and safety. Outcome: Progressing Goal: Sit <-> Stand Transfers - Patient will perform sit to/from stand transfers with minimal assistance and least restrictive device in order to improve functional mobility and safety. Outcome: Progressing Goal: Standing Endurance/Balance - Patient will perform standing balance tasks for 8 min with minimal assistance and least restrictive device Outcome: Progressing Problem: OT - ADLs Goal: Grooming - Patient will complete grooming edge of bed with minimal assistance for improved ability to safely complete ADLs. Outcome: Progressing Problem: OT - Transfers Goal: Transfers Toilet/ Bedside Commode - Patient will transfer to/from toilet/bedside commode with minimal assistance for improved ability to safely complete ADLs. Outcome: Progressing Problem: OT - Strength/ROM Goal: Neuro Re-education - Patient will participate in neuro re-ed of right upper extremity with minimal assistance and 75% accuracy for improved functional use in ADLs. Outcome: Progressing Problem: OT - Cognition Goal: Cognition Simple ADL - Patient will demonstrate improved cognition, completing simple ADL task for 5 minutes with no greater than min cues required to maintain attention. Outcome: Progressing Problem: OT - Vision Goal: Visual Scanning ADL - Patient will employ use of visual compensatory strategies with no greater than min cues in 5/5 trials to increase participation and safety in ADLs. Outcome: Progressing Problem: SUPERVISOR OF INSTRUCTION - Language Goal: Command Following - Patient will complete 1-step commands with 75% accuracy with no cues in order to improve direction following for functional gains in ability to participate more independently in care Outcome: Ongoing Goal: Yes/No Response - Patient will answer yes/no questions related to current situation/environment with 90% accuracy with no cues in order to improve ability to answer questions related to care Outcome: Ongoing Goal: Name Basic Objects/Pictures - Patient will name basic objects/pictures with 75% accuracy, with fading cues in order to improve word-finding and functional communication Outcome: Ongoing Goal: Object Identification by Name - Patient will complete identification tasks to select target item by name in field of 2 in 75% of opportunities with fading cues in order to demonstrate readiness for augmentative and alternative communication. Outcome: Ongoing Problem: Dysphagia Goal: BRAYDEN- Patient will complete isometric exercises (5 repetitions with a 10-second interval between the sets for a maximum of 2 sets) to improve pharyngeal swallow given fading verbal cues for form and pacing over x3-5 sessions Outcome: Ongoing Goal: Bolus challenge - Patient will accept trials of thin liquids x10-15 trials, given moderate cues for use of strategies to improve bolus control/timing of swallow initiation with no signs of aspiration to determine readiness for repeat study Outcome: Ongoing Goal: Swallow Strategy (Oral)- Patient will utilize trained swallow strategies: multiple swallows, liquid wash during PO trials of puree solids/IDDSI 4 with moderate cues to demonstrate improved oral efficiency and readiness for repeat instrumental. Outcome: Ongoing Problem: PT - General Goals Goal: Supine <-> Sit Transfers - Patient will perform supine to/from sit transfers with contact guard assistance and with use of hospital bed features in order to improve functional mobility and safety. Outcome: Progressing Goal: Sit <-> Stand Transfers - Patient will perform sit to/from stand transfers with minimal assistance and least restrictive device in order to improve functional mobility and safety. Outcome: Progressing Goal: Standing Endurance/Balance - Patient will perform standing balance tasks for 8 min with minimal assistance and least restrictive device Outcome: Progressing Problem: OT - ADLs Goal: Grooming - Patient will complete grooming edge of bed with minimal assistance for improved ability to safely complete ADLs. Outcome: Progressing Problem: OT - Transfers Goal: Transfers Toilet/ Bedside Commode - Patient will transfer to/from toilet/bedside commode with minimal assistance for improved ability to safely complete ADLs. Outcome: Progressing Problem: OT - Strength/ROM Goal: Neuro Re-education - Patient will participate in neuro re-ed of right upper extremity with minimal assistance and 75% accuracy for improved functional use in ADLs. Outcome: Progressing Problem: OT - Cognition Goal: Cognition Simple ADL - Patient will demonstrate improved cognition, completing simple ADL task for 5 minutes with no greater than min cues required to maintain attention. Outcome: Progressing Problem: OT - Vision Goal: Visual Scanning ADL - Patient will employ use of visual compensatory strategies with no greater than min cues in 5/5 trials to increase participation and safety in ADLs. Outcome: Progressing Problem: Adult Inpatient Plan of Care Goal: Plan of Care Review Outcome: Progressing Goal: Patient-Specific Goal (Individualized) Outcome: Progressing Goal: Absence of Hospital-Acquired Illness or Injury Outcome: Progressing Goal: Optimal Comfort and Wellbeing Outcome: Progressing Goal: Readiness for Transition of Care Outcome: Progressing Problem: Stroke, Intracerebral Hemorrhage Goal: Optimal Coping Outcome: Progressing Goal: Effective Bowel Elimination Outcome: Progressing Goal: Optimal Cerebral Tissue Perfusion Outcome: Progressing Goal: Optimal Cognitive Function Outcome: Progressing Problem: Dysphagia Goal: Swallow x2 - Pt will swallow therapeutic PO trials of moderately thick liquids/IDDSI 3 x10 trials given moderate cues for use of swallow x2 strategy to improve bolus efficiency to facilitate readiness for repeat study Outcome: Met Goal: Bolus challenge - Patient will accept trials of thin liquids x10-15 trials, given moderate cues for use of strategies to improve bolus control/timing of swallow initiation with no signs of aspiration to determine readiness for repeat study Outcome: Met Goal: BRAYDEN- Patient will complete isometric exercises (5 repetitions with a 10-second interval between the sets for a maximum of 2 sets) to improve pharyngeal swallow given fading verbal cues for form and pacing over x3-5 sessions Outcome: Ongoing Goal: Bolus challenge - Patient will accept trials of thin liquids x10-15 trials, given moderate cues for use of strategies to improve bolus control/timing of swallow initiation with no signs of aspiration to determine readiness for repeat study Outcome: Ongoing Goal: Swallow Strategy (Oral)- Patient will utilize trained swallow strategies: multiple swallows, liquid wash during PO trials of puree solids/IDDSI 4 with moderate cues to demonstrate improved oral efficiency and readiness for repeat instrumental. Outcome: Ongoing Problem: Enteral Nutrition Goal: Feeding Tolerance Outcome: Progressing Nutrition Recommendations and Plan of Care: Continue TF of Osmolite 1.2 at 50 mL/hr. Free water per primary team. Recommend minimum of 30 mL q4 hours x 6 daily to maintain tube patency. Or, can provide 75 mL x 6/day q4 hours to meet hydration needs. Monitor TF intake, TF tolerance, GI function, skin integrity, weight changes, and labs. RD to continue to follow. Problem: SUPERVISOR OF INSTRUCTION - Language Goal: Command Following - Patient will complete 1-step commands with 75% accuracy with no cues in order to improve direction following for functional gains in ability to participate more independently in care Outcome: Ongoing Goal: Yes/No Response - Patient will answer yes/no questions related to current situation/environment with 90% accuracy with no cues in order to improve ability to answer questions related to care Outcome: Ongoing Goal: Automatic Speech - Patient will complete automatic speech tasks with 100% accuracy given fading cues to improve word-finding and functional communication Outcome: Met Goal: Name Basic Objects/Pictures - Patient will name basic objects/pictures with 75% accuracy, with fading cues in order to improve word-finding and functional communication Outcome: Ongoing Goal: Object Identification by Name - Patient will complete identification tasks to select target item by name in field of 2 in 75% of opportunities with fading cues in order to demonstrate readiness for augmentative and alternative communication. Outcome: Ongoing Problem: Dysphagia Goal: Swallow x2 - Pt will swallow therapeutic PO trials of moderately thick liquids/IDDSI 3 x10 trials given moderate cues for use of swallow x2 strategy to improve bolus efficiency to facilitate readiness for repeat study Outcome: Ongoing Goal: Bolus challenge - Patient will accept trials of thin liquids x10-15 trials, given moderate cues for use of strategies to improve bolus control/timing of swallow initiation with no signs of aspiration to determine readiness for repeat study Outcome: Ongoing Problem: OT - ADLs Goal: Grooming - Patient will complete grooming edge of bed with minimal assistance for improved ability to safely complete ADLs. Outcome: Progressing Problem: OT - Transfers Goal: Transfers Toilet/ Bedside Commode - Patient will transfer to/from toilet/bedside commode with minimal assistance for improved ability to safely complete ADLs. Outcome: Progressing Problem: OT - Strength/ROM Goal: Neuro Re-education - Patient will participate in neuro re-ed of right upper extremity with minimal assistance and 75% accuracy for improved functional use in ADLs. Outcome: Progressing Problem: OT - Cognition Goal: Cognition Simple ADL - Patient will demonstrate improved cognition, completing simple ADL task for 5 minutes with no greater than min cues required to maintain attention. Outcome: Progressing Problem: OT - Vision Goal: Visual Scanning ADL - Patient will employ use of visual compensatory strategies with no greater than min cues in 5/5 trials to increase participation and safety in ADLs. Outcome: Progressing Problem: PT - General Goals Goal: Ambulation - Patient will ambulate 50 feet with minimal assistance and least restrictive device to improve ability to safely navigate home and community. Outcome: Ongoing Problem: PT - General Goals Goal: Supine <-> Sit Transfers - Patient will perform supine to/from sit transfers with contact guard assistance and with use of hospital bed features in order to improve functional mobility and safety. Outcome: Progressing Goal: Sit <-> Stand Transfers - Patient will perform sit to/from stand transfers with minimal assistance and least restrictive device in order to improve functional mobility and safety. Outcome: Progressing Goal: Standing Endurance/Balance - Patient will perform standing balance tasks for 8 min with minimal assistance and least restrictive device Outcome: Progressing 2020: BP soft this evening and patient drowsy but readily awakened (Seroquel provided at ~1830). Given blood pressure trends, per NVS, hold Lisinopril and provide Lopressor at this time. 0030: Video sitter order in place due to in-person sitter coverage loss; however, video sitter called and stated camera is malfunctioning. Will monitor patient as best able. 1920: Patient again tearing off monitoring and attempting to exit bed. Patient re-restrained. Patient calms down when soft-limbs are applied. Seroquel provided. Sitter unavailable. NVS aware. 0630: Overall, patient with a much better night relative to the night prior. Agitation effectively minimized by Seroquel dosing. 1930: Restraints (mitts) removed due to patient's heart rate in 140s with restraint application (transient a-fib RVR). HR improved when mitts removed. Will discuss need for melatonin, nightly and if agitation continues, additional medication. 0230: Patient continuously pulling off telemetry, pulse oximetry and trying to exit bed. Patient self-removed left PIV. Will discuss need for sitter/restraint order (patient able to easily slip mitts earlier). Patient needs to remain on telemetry to monitor a-fib per NVS. Seroquel not effective (provided earlier). Problem: Adult Inpatient Plan of Care Goal: Plan of Care Review Outcome: Progressing Goal: Patient-Specific Goal (Individualized) Outcome: Progressing Goal: Absence of Hospital-Acquired Illness or Injury Outcome: Progressing Goal: Optimal Comfort and Wellbeing Outcome: Progressing Goal: Readiness for Transition of Care Outcome: Progressing Problem: Stroke, Intracerebral Hemorrhage Goal: Optimal Coping Outcome: Progressing Goal: Effective Bowel Elimination Outcome: Progressing Goal: Optimal Cerebral Tissue Perfusion Outcome: Progressing Goal: Optimal Cognitive Function Outcome: Progressing Goal: Effective Communication Skills Outcome: Progressing Goal: Optimal Functional Ability Outcome: Progressing Goal: Optimal Nutrition Intake Outcome: Progressing Goal: Optimal Pain Control and Function Outcome: Progressing Goal: Effective Oxygenation and Ventilation Outcome: Progressing Goal: Improved Sensorimotor Function Outcome: Progressing Goal: Safe and Effective Swallow Outcome: Progressing Goal: Effective Urinary Elimination Outcome: Progressing Problem: PT - General Goals Goal: Supine <-> Sit Transfers - Patient will perform supine to/from sit transfers with contact guard assistance and with use of hospital bed features in order to improve functional mobility and safety. Outcome: Progressing Goal: Sit <-> Stand Transfers - Patient will perform sit to/from stand transfers with minimal assistance and least restrictive device in order to improve functional mobility and safety. Outcome: Progressing Goal: Standing Endurance/Balance - Patient will perform standing balance tasks for 8 min with minimal assistance and least restrictive device Outcome: Progressing Goal: Ambulation - Patient will ambulate 50 feet with minimal assistance and least restrictive device to improve ability to safely navigate home and community. Outcome: Progressing Problem: OT - ADLs Goal: Grooming - Patient will complete grooming edge of bed with minimal assistance for improved ability to safely complete ADLs. Outcome: Progressing Goal: Bathing - Patient will perform full body bathing routine with moderate assistance while seated for improved ability to complete self-care activities Outcome: Progressing Problem: OT - Transfers Goal: Transfers Toilet/ Bedside Commode - Patient will transfer to/from toilet/bedside commode with minimal assistance for improved ability to safely complete ADLs. Outcome: Progressing Problem: OT - Strength/ROM Goal: Neuro Re-education - Patient will participate in neuro re-ed of right upper extremity with minimal assistance and 75% accuracy for improved functional use in ADLs. Outcome: Progressing Problem: OT - Cognition Goal: Cognition Simple ADL - Patient will demonstrate improved cognition, completing simple ADL task for 5 minutes with no greater than min cues required to maintain attention. Outcome: Progressing Problem: OT - Vision Goal: Visual Scanning ADL - Patient will employ use of visual compensatory strategies with no greater than min cues in 5/5 trials to increase participation and safety in ADLs. Outcome: Progressing Problem: SUPERVISOR OF INSTRUCTION - Language Goal: Command Following - Patient will complete 1-step commands with 75% accuracy with no cues in order to improve direction following for functional gains in ability to participate more independently in care Outcome: Progressing Goal: Yes/No Response - Patient will answer yes/no questions related to current situation/environment with 90% accuracy with no cues in order to improve ability to answer questions related to care Outcome: Progressing Goal: Automatic Speech - Patient will complete automatic speech tasks with 100% accuracy given fading cues to improve word-finding and functional communication Outcome: Progressing Goal: Name Basic Objects/Pictures - Patient will name basic objects/pictures with 75% accuracy, with fading cues in order to improve word-finding and functional communication Outcome: Progressing Goal: Object Identification by Name - Patient will complete identification tasks to select target item by name in field of 2 in 75% of opportunities with fading cues in order to demonstrate readiness for augmentative and alternative communication. Outcome: Progressing Problem: Enteral Nutrition Goal: Feeding Tolerance Outcome: Progressing Problem: Dysphagia Goal: Swallow x2 - Pt will swallow therapeutic PO trials of moderately thick liquids/IDDSI 3 x10 trials given moderate cues for use of swallow x2 strategy to improve bolus efficiency to facilitate readiness for repeat study Outcome: Progressing Goal: Bolus challenge - Patient will accept trials of thin liquids x10-15 trials, given moderate cues for use of strategies to improve bolus control/timing of swallow initiation with no signs of aspiration to determine readiness for repeat study Outcome: Progressing Goal: BRAYDEN- Patient will complete isometric exercises (5 repetitions with a 10-second interval between the sets for a maximum of 2 sets) to improve pharyngeal swallow given fading verbal cues for form and pacing over x3-5 sessions Outcome: Progressing Problem: Dysphagia Goal: Ongoing Assessment - Patient will participate in ongoing assessment by accepting various PO consistency trials with appropriate participation/oral acceptance and no significant respiratory complications to determine readiness for possible FEES vs diet 10/22/2024 145 by ULISES Chow Outcome: Met Goal: Swallow x2 - Pt will swallow therapeutic PO trials of moderately thick liquids/IDDSI 3 x10 trials given moderate cues for use of swallow x2 strategy to improve bolus efficiency to facilitate readiness for repeat study Outcome: Ongoing Goal: Bolus challenge - Patient will accept trials of thin liquids x10-15 trials, given moderate cues for use of strategies to improve bolus control/timing of swallow initiation with no signs of aspiration to determine readiness for repeat study Outcome: Ongoing Goal: BRAYDEN- Patient will complete isometric exercises (5 repetitions with a 10-second interval between the sets for a maximum of 2 sets) to improve pharyngeal swallow given fading verbal cues for form and pacing over x3-5 sessions Outcome: Ongoing Problem: Dysphagia Goal: MBS - Patient will participate in Modified Barium Swallow (MBS) Study to objectively assess oropharyngeal swallow function to most appropriately guide SUPERVISOR OF INSTRUCTION plan of care Outcome: Not Met Problem: Dysphagia Goal: Ongoing Assessment - Patient will participate in ongoing assessment by accepting various PO consistency trials with appropriate participation/oral acceptance and no significant respiratory complications to determine readiness for possible FEES vs diet Outcome: Ongoing Problem: PT - General Goals Goal: Supine <-> Sit Transfers - Patient will perform supine to/from sit transfers with contact guard assistance and with use of hospital bed features in order to improve functional mobility and safety. Outcome: Progressing Goal: Sit <-> Stand Transfers - Patient will perform sit to/from stand transfers with minimal assistance and least restrictive device in order to improve functional mobility and safety. Outcome: Progressing Problem: OT - ADLs Goal: Grooming - Patient will complete grooming edge of bed with minimal assistance for improved ability to safely complete ADLs. Outcome: Progressing Problem: OT - Transfers Goal: Transfers Toilet/ Bedside Commode - Patient will transfer to/from toilet/bedside commode with minimal assistance for improved ability to safely complete ADLs. Outcome: Progressing Problem: OT - Strength/ROM Goal: Neuro Re-education - Patient will participate in neuro re-ed of right upper extremity with minimal assistance and 75% accuracy for improved functional use in ADLs. Outcome: Progressing Problem: OT - Cognition Goal: Cognition Simple ADL - Patient will demonstrate improved cognition, completing simple ADL task for 5 minutes with no greater than min cues required to maintain attention. Outcome: Progressing Problem: OT - Vision Goal: Visual Scanning ADL - Patient will employ use of visual compensatory strategies with no greater than min cues in 5/5 trials to increase participation and safety in ADLs. Outcome: Progressing Problem: OT - ADLs Goal: Bathing - Patient will perform full body bathing routine with moderate assistance while seated for improved ability to complete self-care activities Outcome: Ongoing Problem: Adult Inpatient Plan of Care Goal: Plan of Care Review Outcome: Progressing Goal: Patient-Specific Goal (Individualized) Outcome: Progressing Goal: Absence of Hospital-Acquired Illness or Injury Outcome: Progressing Goal: Optimal Comfort and Wellbeing Outcome: Progressing Goal: Readiness for Transition of Care Outcome: Progressing Problem: Stroke, Intracerebral Hemorrhage Goal: Optimal Coping Outcome: Progressing Goal: Effective Bowel Elimination Outcome: Progressing Goal: Optimal Cerebral Tissue Perfusion Outcome: Progressing Goal: Optimal Cognitive Function Outcome: Progressing Goal: Effective Communication Skills Outcome: Progressing Goal: Optimal Functional Ability Outcome: Progressing Goal: Optimal Nutrition Intake Outcome: Progressing Goal: Optimal Pain Control and Function Outcome: Progressing Goal: Effective Oxygenation and Ventilation Outcome: Progressing Goal: Improved Sensorimotor Function Outcome: Progressing Goal: Safe and Effective Swallow Outcome: Progressing Goal: Effective Urinary Elimination Outcome: Progressing Problem: Dysphagia Goal: FEES - Patient will participate in Fiberoptic Endoscopic Evaluation of Swallowing (FEES) study to objectively assess pharyngeal swallow function to most appropriately guide SUPERVISOR OF INSTRUCTION plan of care Outcome: Progressing Problem: Enteral Nutrition Goal: Feeding Tolerance Outcome: Progressing Problem: SUPERVISOR OF INSTRUCTION - Language Goal: Command Following - Patient will complete 1-step commands with 75% accuracy with no cues in order to improve direction following for functional gains in ability to participate more independently in care Outcome: Ongoing Goal: Yes/No Response - Patient will answer yes/no questions related to current situation/environment with 90% accuracy with no cues in order to improve ability to answer questions related to care Outcome: Ongoing Goal: Automatic Speech - Patient will complete automatic speech tasks with 100% accuracy given fading cues to improve word-finding and functional communication Outcome: Ongoing Goal: Name Basic Objects/Pictures - Patient will name basic objects/pictures with 75% accuracy, with fading cues in order to improve word-finding and functional communication Outcome: Ongoing Goal: Object Identification by Name - Patient will complete identification tasks to select target item by name in field of 2 in 75% of opportunities with fading cues in order to demonstrate readiness for augmentative and alternative communication. Outcome: Ongoing Problem: Dysphagia Goal: MBS - Patient will participate in Modified Barium Swallow (MBS) Study to objectively assess oropharyngeal swallow function to most appropriately guide SUPERVISOR OF INSTRUCTION plan of care Outcome: Ongoing Problem: Dysphagia Goal: FEES - Patient will participate in Fiberoptic Endoscopic Evaluation of Swallowing (FEES) study to objectively assess pharyngeal swallow function to most appropriately guide SUPERVISOR OF INSTRUCTION plan of care Outcome: Not Met Problem: Dysphagia Goal: Ongoing Assessment - Patient will participate in ongoing assessment by accepting various PO consistency trials with appropriate participation/oral acceptance and no significant respiratory complications to determine readiness for instrumental Outcome: Met Problem: Adult Inpatient Plan of Care Goal: Plan of Care Review Outcome: Progressing Problem: Adult Inpatient Plan of Care Goal: Patient-Specific Goal (Individualized) Outcome: Progressing Problem: Adult Inpatient Plan of Care Goal: Absence of Hospital-Acquired Illness or Injury Outcome: Progressing Problem: Adult Inpatient Plan of Care Goal: Optimal Comfort and Wellbeing Outcome: Progressing Problem: Adult Inpatient Plan of Care Goal: Readiness for Transition of Care Outcome: Progressing Problem: Stroke, Intracerebral Hemorrhage Goal: Optimal Coping Outcome: Progressing Problem: Stroke, Intracerebral Hemorrhage Goal: Effective Bowel Elimination Outcome: Progressing Problem: Stroke, Intracerebral Hemorrhage Goal: Optimal Cerebral Tissue Perfusion Outcome: Progressing Problem: Stroke, Intracerebral Hemorrhage Goal: Optimal Cognitive Function Outcome: Progressing Problem: Stroke, Intracerebral Hemorrhage Goal: Effective Communication Skills Outcome: Progressing Problem: Stroke, Intracerebral Hemorrhage Goal: Optimal Functional Ability Outcome: Progressing Problem: Stroke, Intracerebral Hemorrhage Goal: Optimal Nutrition Intake Outcome: Progressing Problem: Stroke, Intracerebral Hemorrhage Goal: Optimal Pain Control and Function Outcome: Progressing Problem: Stroke, Intracerebral Hemorrhage Goal: Effective Oxygenation and Ventilation Outcome: Progressing Neurosurgery Update: Consulted for outside hospital hemorrhagic stroke transfer for a small volume intraparenchymal hemorrhage. Repeat imaging showed stable bleed. No neurosurgical intervention indicated at this time. - No neurosurgery follow up needed. - We recommend follow-up with the stroke team. - Neurosurgery will sign-off. Please call with questions. Narendra Vaughn MD, Neurosurgery NS2 ([phone]) Images from the original note were not included. I briefly visited with Behzad Hay this morning as the Stroke Nurse Navigator for the [facility] at the [facility]. Given the nature of Behzad Hay's stroke, I was not able to complete a full visit. I have left my business card and a BEFAST magnet within the room for any loved ones who may visit. ROBBY Al, RN Stroke Nurse Navigator [facility] [place] [address] Office [email or web address] On admission to [facility] ED, from another [facility] inpatient unit a dual RN initial assessment of skin condition was performed by Yonas Oconnor RN and Kalpesh RN. Skin Assessment: Skin within defined limits:Yes Dani Score: 13 LDA Added:Yes Yonas Oconnor RN Images from the original note were not included. NEUROLOGY CONSULTATION BRIEF UPDATE NOTE Contacted by nursing regarding change in NIH on transfer to floor from [facility]. Most notably, she has worsening strength in her RLE (scored a zero earlier today) and worsening aphasia and dysarthria compared to previous report. 1422 2228 Provider NIH Stroke Scale NIH Interval (Provider) -- -- NIH Level of Conciousness (Provider) 1 0 NIH LOC Questions (Provider) 2 2 NIH LOC Commands (Provider) 1 0 NIH Best Gaze (Provider) 1 1NIH Best Gaze (Provider). 1. Has comment. Taken on 10/19/24 2228 NIH Visual (Provider) 0 0 NIH Facial Palsy (Provider) 1 1 NIH Left Arm Motor (Provider) 0 0 NIH Right Arm Motor (Provider) 2 2 NIH Left Leg Motor (Provider) 0 0 NIH Right Leg Motor (Provider) 0 3 NIH Limb Ataxia (Provider) 0 0 NIH Sensory (Provider) 1 1NIH Sensory (Provider). 1. Has comment. Taken on 10/19/24 2228 NIH Best Language (Provider) 2 3NIH Best Language (Provider). 3. Has comment. Taken on 10/19/24 2228 NIH Dysarthria (Provider) 1 2 NIH Extinction and Inattention (Provider) 0 0 NIH Total Score (Provider) 12 15 Patient is admitted for L thalamic IPH . NIH change of 3 with increase in score in RLE (0 > 3), aphasia (2>3), and dysarthria (1>2). Vitals reviewed. SBP chau of 184 x2 this afternoon. Plan: STAT CTH - appears stable. Formal read pending Patient and plan discussed with Dr. Mar. Please call the neurovascular team with any questions or concerns. Signed, Krys Mix MD Neurology, PGY3 Pt arrived [facility] upon initial assessment pts NIH noted to be a 13 up from the previous NIH of 10. Dr. Mix made aware of NIH change and present at bedside. New orders received for STAT head CT. Problem: Adult Inpatient Plan of Care Goal: Plan of Care Review Outcome: Progressing Goal: Patient-Specific Goal (Individualized) Outcome: Progressing Goal: Optimal Comfort and Wellbeing Outcome: Progressing Goal: Readiness for Transition of Care Outcome: Progressing Problem: Stroke, Intracerebral Hemorrhage Goal: Optimal Nutrition Intake Outcome: Progressing Problem: Enteral Nutrition Goal: Feeding Tolerance Outcome: Progressing Nutrition Recommendations and Plan of Care: Initiate TF of Osmolite 1.2 at 10 mL/hr. Increase by 10 mL/hr q4 hours as tolerated until goal rate of 50 mL/hr is achieved to provide 1200 mL total volume, 1440 kcal (26 kcal/kg), and 67 g PRO (1.2 g/kg). Free water per primary team. Recommend minimum of 30 mL q4 hours x 6 daily to maintain tube patency. Monitor TF intake, TF tolerance, GI function, skin integrity, weight changes, and labs. RD to continue to follow. Problem: Dysphagia Goal: FEES - Patient will participate in Fiberoptic Endoscopic Evaluation of Swallowing (FEES) study to objectively assess pharyngeal swallow function to most appropriately guide SUPERVISOR OF INSTRUCTION plan of care Outcome: Ongoing Problem: SUPERVISOR OF INSTRUCTION - Language Goal: Command Following - Patient will complete 1-step commands with 75% accuracy with no cues in order to improve direction following for functional gains in ability to participate more independently in care Outcome: Ongoing Goal: Yes/No Response - Patient will answer yes/no questions related to current situation/environment with 90% accuracy with no cues in order to improve ability to answer questions related to care Outcome: Ongoing Goal: Automatic Speech - Patient will complete automatic speech tasks with 100% accuracy given fading cues to improve word-finding and functional communication Outcome: Ongoing Goal: Name Basic Objects/Pictures - Patient will name basic objects/pictures with 75% accuracy, with fading cues in order to improve word-finding and functional communication Outcome: Ongoing Goal: Object Identification by Name - Patient will complete identification tasks to select target item by name in field of 2 in 75% of opportunities with fading cues in order to demonstrate readiness for augmentative and alternative communication. Outcome: Ongoing Problem: OT - ADLs Goal: Grooming - Patient will complete grooming edge of bed with minimal assistance for improved ability to safely complete ADLs. Outcome: Ongoing Goal: Bathing - Patient will perform full body bathing routine with moderate assistance while seated for improved ability to complete self-care activities Outcome: Ongoing Problem: OT - Transfers Goal: Transfers Toilet/ Bedside Commode - Patient will transfer to/from toilet/bedside commode with minimal assistance for improved ability to safely complete ADLs. Outcome: Ongoing Problem: OT - Strength/ROM Goal: Neuro Re-education - Patient will participate in neuro re-ed of right upper extremity with minimal assistance and 75% accuracy for improved functional use in ADLs. Outcome: Ongoing Problem: OT - Cognition Goal: Cognition Simple ADL - Patient will demonstrate improved cognition, completing simple ADL task for 5 minutes with no greater than min cues required to maintain attention. Outcome: Ongoing Problem: OT - Vision Goal: Visual Scanning ADL - Patient will employ use of visual compensatory strategies with no greater than min cues in 5/5 trials to increase participation and safety in ADLs. Outcome: Ongoing Problem: PT - General Goals Goal: Supine <-> Sit Transfers - Patient will perform supine to/from sit transfers with contact guard assistance and with use of hospital bed features in order to improve functional mobility and safety. Outcome: Ongoing Goal: Sit <-> Stand Transfers - Patient will perform sit to/from stand transfers with minimal assistance and least restrictive device in order to improve functional mobility and safety. Outcome: Ongoing Goal: Standing Endurance/Balance - Patient will perform standing balance tasks for 8 min with minimal assistance and least restrictive device Outcome: Ongoing Goal: Ambulation - Patient will ambulate 50 feet with minimal assistance and least restrictive device to improve ability to safely navigate home and community. Outcome: Ongoing Problem: Adult Inpatient Plan of Care Goal: Plan of Care Review Outcome: Progressing Goal: Patient-Specific Goal (Individualized) Outcome: Progressing Goal: Optimal Comfort and Wellbeing Outcome: Progressing Goal: Readiness for Transition of Care Outcome: Progressing Problem: Stroke, Intracerebral Hemorrhage Goal: Effective Urinary Elimination Outcome: Progressing documented in this encounter [facility] 11-16-2024 History of Present illness Narrative Care Management Discharge Note Selected Continued Care - Admitted Since 10/18/2024 Destination Coordination complete. Service Provider Services Address Phone Fax Patient Preferred [facility] Longterm [address] [place] [address] [phone] -- Transport Request Mode of Transfer: [facility] Name of Discharge Transport Company: [employer] Discharge Transport ETA: 11/16/2024 @ 3:20pm Patient medically stable for discharge per physician/medical team. Patient/Commodity Management Specialist remain in agreement with the discharge plan. PAM Fleming, [place] Communication Consultant Available by Secure Chat Acute Occupational Therapy Treatment Prior Gross Functional Mobility: needs assist Current AM-PAC score(s): CURRENT AM-PAC Activity Raw Score: 8 Based on the above AM-PAC score(s), and OT clinical judgment, discharge destination recommendation is: Longterm Facility Barriers to discharge home: Patient needs assistance with ADLs, Patient needs assistance with IADLs (see note below) Mobility equipment available at home: ADL equipment available at home: shower chair, grab bars Equipment recommendations for discharge: Equipment issued: none Current therapy frequency recommendation(s) in acute: 5 times a week Activity Recommendations for outside of rehab session: mayra Precautions and Weightbearing Status: OT Existing Precautions/Restrictions: fall Lines/Tubes/Drains (Rehab Status): PEG Patient Safety Communication Prior to Visit: Nursing Subjective: Pt with limited verbalizations, dysarthria, but cooperative with session Pain: General Pain Documentation (Adult, OB, Peds) Presence of Pain: denies pain/discomfort Presence of Pain Score (Auto-calculated): 0 Objective/Observation: Vitals/Vitals Responses to Treatment: VSS O2 Device: room air Cognition Overall Cognitive Status: Impaired Arousal/Alertness: Delayed responses to stimuli Orientation Level: Oriented to person Following Commands: Follows one step commands with increased time, Follows one step commands with repetition, Follows commands 25-50% of the time Safety Judgment: Decreased awareness of need for assistance, Decreased awareness of need for safety Awareness of Errors: Assistance required to identify errors made, Assistance required to correct errors made Deficits: Decreased awareness of deficits Attention Span: Difficulty attending to directions Cognition Comments: flat affect, delayed processing, lethargic ADL Assessment/Intervention: ADLs: Eating Assistance: Grooming Assistance: Minimal Grooming Location: seated in chair Grooming Deficit: Activity tolerance, Generalized weakness, Balance, Brushing hair Grooming Skilled Rationale (Verbal/Tactile/Visual/Demonstrat ion): Setup, Supervision Grooming Intervention/Details: improved initiation to try to grasp brush in right hand to brush hair and with hand over hand assist minimally able to brush hair with right hand. Cues to use left hand for rest of hair and able to complete with increased time Bathing Assistance: UE Dressing Assistance: LE Dressing Assistance: Toilet Assistance: Extremity Assessments: See OT Evaluation flowsheet for Extremity Measurement updates. Balance: Sitting Balance Static Sitting-Level of Assistance: (CGA to min) Skilled Rationale: Verbal cues, Tactile cues, Facilitate anterior shift, Full extension to upright positioning/posture Sitting Balance Skilled Intervention/Details: Pt with initial mild retropulsion and with intermittent right lateral lean, frequent tactile and verbal cues for midline positioning EOB. Standing Balance Static Standing-Level of Assistance: Maximum assistance, 2-person assist Standing-Balance Support: Gait belt, Arm in arm Skilled Rationale: Verbal cues, Tactile cues Standing Balance Skilled Intervention/Details: Completed x3 trials with partial stand due to forward flexed posture approx 10 sec each with bilat arm in arm, tactile cues at hips and verbal cues for upright posture with limited carry over Skin and Edema: Mobility Assessment/Intervention: Supine to Sit Mobility Kirvin Level: Supine->Sit: dependent (less than 25% patient effort) Physical Assist: Supine->Sit: 2 person assist Bed Features/Set-up: Supine->Sit: Head of bed elevated Skilled Rationale: Verbal cues Skilled Intervention/Details: Supine->Sit: limited initiation from pt despite max cues Transfer Assessment/Intervention: Sit to Stand Transfer Kirvin Level: Sit->Stand: maximum assist (25% patient effort) Physical Assist: Sit->Stand: 2 person assist Assistive Device: Sit->Stand: gait belt, arm in arm Skilled Rationale: Verbal cues, Tactile cues, Facilitate anterior shift, Full extension to upright positioning/posture Skilled Intervention/Details: Sit->Stand: Completed x2 from EOB and x1 from recliner with bilat arm in arm, blocking knees, tactile cues at hips and max cues for initiation with limited initiation from pt this date Bed-Chair Transfer Kirvin Level: Bed<->Chair: dependent (less than 25% patient effort) Physical Assist: Bed<->Chair: 2 person assist Assistive Device: Bed<->Chair: gait belt, arm in arm Skilled Rationale: Verbal cues, Tactile cues Skilled Intervention/Details: Bed<->Chair: squat pivot transfer to left with bilat arm in arm, tactile cues at hips, limited initiation from pt and unable to step to chair this date Functional Mobility: Outcome Score(s): CURRENT [facility] Daily Activity Inpatient Short Form Putting on/Taking Off Lower Body Clothin - Total Assistance Bathin - A Lot of Assistance Toiletin - Total Assistance Putting on/Taking Off Upper Body Clothin - Total Assistance Groomin - A Lot of Assistance Eatin - Total Assistance CURRENT [facility] Activity Raw Score: 8 CURRENT -[facility] Activity Functional Limitation/Modifier: 85.69% Currently Impaired in Daily Activity - CM Interventions: Intervention 1 Intervention Name: neuro re-ed RUE Details: Completed AAROM x5 repetitions right shoulder and active ROM x5 reps for right hand flex/ext. Cues throughout for max range and for visual attention to task. Completed to increase RUE ROM and strength for use in ADLs Assessment & Plan: Pt demonstrates increased lethargy and decreased initiation from previous session and is making fair progress towards goals. Pt continues to present with deficits in balance, cognition, right side strength, communication, safety and insight and requires 1-2 person assist for ADLs and functional transfer and mobility tasks. Pt requires continued skilled OT services to address functional deficits and maximize safety and independence in ADLs for return home with family safely. Patient Instruction/Education this session: Learners: Patient Education provided: Activity outside of therapy, Balance training, Bed mobility, Discharge recommendations, Plan of care, Positioning, Role of this discipline Teaching method: Verbal Education/Instruction Learner response: Needs review Learning considerations: Cognition Plan for next session: ADLs seated or standing at sink with integration of RUE into task Acute OT Goals Plan of Care by Jennifer Webster OT at 11/16/2024 9:25 AM Version 1 of 1 Problem: OT - ADLs Goal: Grooming - Patient will complete grooming edge of bed with minimal assistance for improved ability to safely complete ADLs. Outcome: Ongoing Problem: OT - Cognition Goal: Cognition Simple ADL - Patient will demonstrate improved cognition, completing simple ADL task for 5 minutes with no greater than min cues required to maintain attention. Outcome: Ongoing Problem: OT - Transfers Goal: Transfers Toilet/ Bedside Commode - Patient will transfer to/from toilet/bedside commode with minimal assistance for improved ability to safely complete ADLs. Outcome: Progressing Problem: OT - Strength/ROM Goal: Neuro Re-education - Patient will participate in neuro re-ed of right upper extremity with minimal assistance and 75% accuracy for improved functional use in ADLs. Outcome: Progressing OT treatment consisted of the following to work and progress towards the above goal(s): OT Evaluation and Treatment Time Self Care/Home Management (ADLs) Time Entry: 10 Neuromuscular Re-Education Time Entry: 15 Treating Therapist: Jennifer Webster OT Additional Details: OT Co-Eval/Treatment Information Co-evaluation/co-treatment performed?: Yes, simultaneous billable skilled care was necessary due to medical complexity and functional deficits Other discipline: PT Rationale for need to co-eval/treat: cognition, postural control Co-treatment goal focus: self-care, cognition PPE used during patient interaction: gloves Patient location at end of session: chair, mechanical lift pad under patient in chair Alarms on at end of session: chair alarm Needs in reach. Time In: 0900 Time Out: 09 Total Visit Time: 25 minutes Total Treatment Time (skilled, billable minutes): 25 minutes Upon discontinuation of Acute Care Occupational Therapy Services or patient discharge from the hospital this note represents the current Occupational Therapy Discharge Summary. Care Management Progress Note Preadmission Screen - Level 1 has been completed in the Healthcare Electronic Notification System for discharge. Teodora Alcantar Care Management Armorer Technician Acute Physical Therapy Treatment Prior Gross Functional Mobility: needs assist Current AM-PAC score(s): CURRENT AM-PAC Mobility Raw Score: 10 Based on the above AM-PAC score(s) and PT clinical judgment, patient is a good candidate for discharge to Longterm Facility Barriers to discharge home: Patient needs assistance with functional mobility Mobility equipment available at home: ADL equipment available at home: shower chair, grab bars Equipment needed for discharge: to be determined Current therapy frequency recommendation in acute: PT Therapy Frequency: 5 times a week Activity Recommendations for outside of rehab session: mayra Precautions and Weightbearing Status: Existing Precautions/Restrictions: fall Lines/Tubes/Drains (Rehab Status): PEG Patient Safety Communication Prior to Visit: Nursing Subjective: Pt agreeable to session Pain: General Pain Documentation (Adult, OB, Peds) Presence of Pain: not present: non-verbal indicator of pain/discomfort Presence of Pain Score (Auto-calculated): 0 Objective/Observation: Vitals/Vitals Responses to Treatment: VSS, no adverse reaction to therapy. Pt denies dizziness with mobility or pain spike. Stable at session end, no additional complaints or concerns O2 Device: room air Cognition Overall Cognitive Status: Impaired Arousal/Alertness: Delayed responses to stimuli Orientation Level: Oriented to person Following Commands: Follows one step commands without difficulty Cognition Comments: flat affect, minimal verbal participation. Cues for safety required, pt requires incr time and effort to sequence commands Extremity Assessments: See PT Evaluation flowsheet for Extremity Measurement updates. Skin and Edema: Balance: Sitting Balance Static Sitting-Level of Assistance: Minimum assistance Dynamic Sitting-Level of Assistance: Minimum assistance Skilled Rationale: Positioning, Sequencing, Verbal cues, Cues for increased safety, Technique of activity Sitting Balance Skilled Intervention/Details: Pt with retropulsiveness sitting EOB, cues for anterior weightshift and safety. Standing Balance Static Standing-Level of Assistance: Maximum assistance, 2-person assist Dynamic Standing-Level of Assistance: Dependent, 2-person assist Standing-Balance Support: Arm in arm Skilled Rationale: Positioning, Sequencing, Verbal cues, Cues for increased safety, Technique of activity, Full extension to upright positioning/posture Standing Balance Skilled Intervention/Details: pt with limited standing tolerance, right lateral lean, patellar buckle requiring cues and assist for upright Mobility Assessment/Intervention: Supine to Sit Mobility Kirvin Level: Supine->Sit: dependent (less than 25% patient effort) Physical Assist: Supine->Sit: 2 person assist Bed Features/Set-up: Supine->Sit: Head of bed elevated Skilled Rationale: Positioning, Sequencing, Verbal cues, Cues for increased safety, Technique of activity Skilled Intervention/Details: Supine->Sit: x1 to right, total assist at trunk and BLE to come to upright, no initiation noted despite cues Sit to Supine Mobility Kirvin Level: Sit->Supine: not tested Skilled Intervention/Details: Sit->Supine: pt in recliner with needs in reach no additional complaints Transfer Assessment/Intervention: Sit to Stand Transfer Kirvin Level: Sit->Stand: maximum assist (25% patient effort) Physical Assist: Sit->Stand: 2 person assist Assistive Device: Sit->Stand: arm in arm, gait belt Skilled Rationale: Positioning, Sequencing, Verbal cues, Cues for increased safety, Technique of activity, Full extension to upright positioning/posture Skilled Intervention/Details: Sit->Stand: x2 from EOB, pt requires patellar block, ischail assist to initiate and complete transfer Stand to Sit Transfer Kirvin Level: Stand->Sit: moderate assist (50% patient effort) Physical Assist: Stand->Sit: 2 person assist Assistive Device: Stand->Sit: gait belt, arm in arm Skilled Rationale: Positioning, Sequencing, Verbal cues, Cues for increased safety, Upright gaze/neck extension Skilled Intervention/Details: Stand->Sit: x1 to EOB x1 to recliner, cues for safety, controlled descent Bed-Chair Transfer Kirvin Level: Bed<->Chair: dependent (less than 25% patient effort) Physical Assist: Bed<->Chair: 2 person assist Assistive Device: Bed<->Chair: gait belt, arm in arm Skilled Rationale: Positioning, Sequencing, Verbal cues, Cues for increased safety, Technique of activity, Controlled descent for sitting Skilled Intervention/Details: Bed<->Chair: squat pivot x1 to left, pt unable to initiate side steps to recliner. Gait/Functional Mobility Assessment/Intervention: Gait Assessment Kirvin Level: Gait: unable to assess Stairs Assessment/Intervention: Stairs Assessment Kirvin Level: Stair Negotiation: not tested Outcome Score(s): CURRENT [facility] Basic Mobility Inpatient Short Form Turning over in bed: 2 - A Lot of Assistance Moving from lying on back to sittin - A Lot of Assistance Moving to and from bed to chair: 2 - A Lot of Assistance Sitting/standing from chair: 2 - A Lot of Assistance Walk in hospital room: 1 - Total Assistance Climbing 3-5 steps with a railin - Total Assistance CURRENT [facility] Mobility Raw Score: 10 CURRENT [facility] Mobility Functional Limitation: 76.75% Impaired in Basic Mobility Interventions: Intervention 1 Intervention Name: NORBERTO Campos Details: BLE HEP demonstrated and completed. cues for proper technique, pacing, education for carryover to functional activity tolerance Assessment & Plan: Vitals WFL, no adverse reaction to therapy during session, pt agreeable to therapy session. Pt educated on all mobility precautions at session start and maintained throughout session. Session focus on Bed mobility, Dynamic and static sitting balance, Activity tolerance, Dynamic and static standing balance , Pt education, and Righting reactions for carryover to Strength Balance Improved activity tolerance. Pt demonstrates Slow progression to goals in POC compared to session prior. Pt will continue to benefit from skilled physical therapy during this hospitalization to address remaining deficits in Strength, Balance , and Functional activity tolerance as they relate to safety and independence with functional mobility for overall carryover to improvement in quality of life. During session pt educated on Importance of staff assistance, recommended assistive device and call light use with all OOB mobility , Fall prevention, Current discharge recommendations , and Role of PT/POC . At session end, pt in recliner with mayra pad placed under patient and chair alarm placed and activated patient with needs in reach, no additional complaints or questions, all lines, tubes, drains intact. RN notified and aware of all session details, pt condition, pt vitals, and PT mobility recommendations for nursing staff via handoff at session end. Patient Instruction/Education this session: Learners: Patient Education provided: Activity outside of therapy, Role of this discipline, Safety, Functional transfers, Bed mobility, Balance training Plan for next session: progress transfers Acute PT Goals Plan of Care by Janelle Dobbs PT at 11/16/2024 2:39 PM Version 1 of 1 Problem: PT - General Goals Goal: Ambulation - Patient will ambulate 50 feet with minimal assistance and least restrictive device to improve ability to safely navigate home and community. Outcome: Ongoing Problem: PT - General Goals Goal: Supine <-> Sit Transfers - Patient will perform supine to/from sit transfers with contact guard assistance and with use of hospital bed features in order to improve functional mobility and safety. Outcome: Progressing Goal: Sit <-> Stand Transfers - Patient will perform sit to/from stand transfers with minimal assistance and least restrictive device in order to improve functional mobility and safety. Outcome: Progressing Goal: Standing Endurance/Balance - Patient will perform standing balance tasks for 8 min with minimal assistance and least restrictive device Outcome: Progressing Goal: Sitting Endurance/Balance - Patient will perform seated balance tasks for 10 minutes with contact guard assistance and UE support Outcome: Progressing PT treatment consisted of the following to progress towards the above goal(s): PT Evaluation and Treatment Time Therapeutic Activity Time Entry: 24 Treating Therapist: Janelle Dobbs PT Additional Details: PT Co-Eval/Treatment Information Co-evaluation/co-treatment performed?: Yes, simultaneous billable skilled care was necessary due to medical complexity and functional deficits Other discipline: OT Rationale for need to co-eval/treat: cognition, postural control Co-treatment goal focus: balance, mobility, transfer PPE used during patient interaction: gloves Patient location at end of session: RN aware, lines intact, bed with head of bed elevated Alarms on at end of session: RN aware, none altered, bed alarm (video sitter) Needs in reach. Time In: 901 Time Out: 925 Total Visit Time: 24 minutes Total Treatment Time (skilled, billable minutes): 24 minutes Upon discontinuation of Acute Care Physical Therapy Services or patient discharge from the hospital this note represents the current Physical Therapy Discharge Summary. Care Management Progress Note Transportation for discharge arranged Mode of Transfer: (P) BLS Name of Discharge Transport Company: (P) [employer] Discharge Transport ETA: (P) 11/16/2024 @ 3:20pm Pick-up from [facility] 1086/A Destination [facility] [address] [place] [address] Teodora Alcantar Care Management Armorer Technician Placement Plan Expected Discharge Date: TBD Referred Level of Care: SNF Barriers: pre-cert; out-of-town transportation Current Referrals and Status 1. [facility] - accepted/reserved SW contacted SNF for update on pre-cert. Pre-cert is still pending. SW uploaded updated PT/OT notes for SNF to send to insurance. SW will continue to follow as well as complete handoff for the unit/cover CM/SW for continuity of care. Addendum @ 4:30pm - SW notifed by SNF that pre-cert was approved. Pt is med ready to discharge. SNF confirms ability to admit pt. Transportation is scheduled for tomorrow (11/16) @ 3:20pm via [employer]. SW updated med team and SNF. Bedside nurse to update pt and pt's daughter who is currently at bedside. PAM Starks, LUIS ANTONIO-S Medical Social Work Please note that I am a float SW and may not be covering the same unit each day. Please reach out to the floor/unit SW for additional needs/concerns. Main CM/SW Office (Friday-Friday, 8:00am-4:30pm): [phone] For any other coverage needs, please consult Sarkisa under Care Management. Acute Physical Therapy Treatment Prior Gross Functional Mobility: needs assist Current AM-PAC score(s): CURRENT AM-PAC Mobility Raw Score: 7 Based on the above AM-PAC score(s) and PT clinical judgment, patient is a good candidate for discharge to Longterm Facility Barriers to discharge home: Patient needs assistance with functional mobility ADL equipment available at home: shower chair, grab bars Equipment needed for discharge: to be determined Current therapy frequency recommendation in acute: PT Therapy Frequency: 5 times a week Precautions and Weightbearing Status: Existing Precautions/Restrictions: fall Patient Safety Communication Prior to Visit: Nursing Subjective: Pt is agreeable to PT session. Pain: General Pain Documentation (Adult, OB, Peds) Presence of Pain: denies pain/discomfort Presence of Pain Score (Auto-calculated): 0 Objective/Observation: O2 Device: room air Cognition Orientation Level: (alerts to name; location with options) Following Commands: Follows one step commands with repetition Safety Judgment: Decreased awareness of need for assistance, Decreased awareness of need for safety Extremity Assessments: See PT Evaluation flowsheet for Extremity Measurement updates. Balance: Sitting Balance Static Sitting-Level of Assistance: Standby (to contact guard) Dynamic Sitting-Level of Assistance: Minimum assistance Skilled Rationale: Verbal cues, Facilitate anterior shift, Technique of activity Sitting Balance Skilled Intervention/Details: Pt sat EOB x 10-12 minutes with standby to minimal assistance x 1 while performing dynamic reaching tasks, moving bilateral LEs, and ADLs Standing Balance Static Standing-Level of Assistance: Moderate assistance, 2-person assist Dynamic Standing-Level of Assistance: Moderate assistance, 2-person assist Mobility Assessment/Intervention: Supine to Sit Mobility Kirvin Level: Supine->Sit: maximum assist (25% patient effort) Physical Assist: Supine->Sit: 2 person assist Bed Features/Set-up: Supine->Sit: Head of bed elevated Skilled Rationale: Verbal cues, Sequencing, Technique of activity Sit to Supine Mobility Kirvin Level: Sit->Supine: moderate assist (50% patient effort) Physical Assist: Sit->Supine: 2 person assist Bed Features/Set-up: Sit->Supine: Head of bed elevated Skilled Rationale: Verbal cues, Sequencing, Technique of activity Transfer Assessment/Intervention: Sit to Stand Transfer Kirvin Level: Sit->Stand: moderate assist (50% patient effort) Physical Assist: Sit->Stand: 2 person assist Assistive Device: Sit->Stand: gait belt, arm in arm Skilled Rationale: Verbal cues, Facilitate anterior shift Skilled Intervention/Details: Sit->Stand: x 2 from the EOB Stand to Sit Transfer Kirvin Level: Stand->Sit: moderate assist (50% patient effort) Physical Assist: Stand->Sit: 2 person assist Assistive Device: Stand->Sit: gait belt, arm in arm Skilled Rationale: Verbal cues, Controlled descent for sitting Outcome Score(s): CURRENT AM-PAC Basic Mobility Inpatient Short Form Turning over in bed: 2 - A Lot of Assistance Moving from lying on back to sittin - Total Assistance Moving to and from bed to chair: 1 - Total Assistance Sitting/standing from chair: 1 - Total Assistance Walk in hospital room: 1 - Total Assistance Climbing 3-5 steps with a railin - Total Assistance CURRENT [facility] Mobility Raw Score: 7 CURRENT [facility] Mobility Functional Limitation: 92.36% Impaired in Basic Mobility Assessment & Plan: Pt is making good progress towards their established goals. The pt was able to progress independence with bed mobility and transfers. Pt is primarily limited by impaired cognition, impaired functional strength, impaired dynamic balance, and impaired functional endurance. Continued skilled PT recommended to address their impairments and progress towards their functional goals per pt tolerance. Patient Instruction/Education this session: Learners: Patient Education provided: Bed mobility, Functional transfers Teaching method: Verbal Education/Instruction Learner response: Needs review Plan for next session: Progress EOB activity and transfers per pt tolerance Acute PT Goals Plan of Care by Chano Patricio PT at 11/15/2024 11:29 AM Version 1 of 1 Problem: PT - General Goals Goal: Supine <-> Sit Transfers - Patient will perform supine to/from sit transfers with contact guard assistance and with use of hospital bed features in order to improve functional mobility and safety. Outcome: Ongoing Goal: Sit <-> Stand Transfers - Patient will perform sit to/from stand transfers with minimal assistance and least restrictive device in order to improve functional mobility and safety. Outcome: Ongoing Goal: Standing Endurance/Balance - Patient will perform standing balance tasks for 8 min with minimal assistance and least restrictive device Outcome: Ongoing Goal: Ambulation - Patient will ambulate 50 feet with minimal assistance and least restrictive device to improve ability to safely navigate home and community. Outcome: Ongoing Goal: Sitting Endurance/Balance - Patient will perform seated balance tasks for 10 minutes with contact guard assistance and UE support Outcome: Ongoing PT treatment consisted of the following to progress towards the above goal(s): PT Evaluation and Treatment Time Therapeutic Activity Time Entry: 23 Treating Therapist: Chano Patricio PT Additional Details: PT Co-Eval/Treatment Information Co-evaluation/co-treatment performed?: Yes, combination of simultaneous billable and individual billable skilled care was necessary due to medical complexity and functional deficits Other discipline: OT Rationale for need to co-eval/treat: postural control Co-treatment goal focus: balance, mobility, transfer, endurance, strength PPE used during patient interaction: gloves Patient location at end of session: bed with head of bed elevated Alarms on at end of session: RN aware, none altered Needs in reach. Time In: 1100 Time Out: 1123 Total Visit Time: 23 minutes Total Treatment Time (skilled, billable minutes): 23 minutes Upon discontinuation of Acute Care Physical Therapy Services or patient discharge from the hospital this note represents the current Physical Therapy Discharge Summary. Acute Occupational Therapy Treatment Prior Gross Functional Mobility: needs assist Current AM-PAC score(s): CURRENT AM-PAC Activity Raw Score: 8 Based on the above AM-PAC score(s), and OT clinical judgment, discharge destination recommendation is: Longterm Facility Barriers to discharge home: Patient needs assistance with ADLs, Patient needs assistance with IADLs (see note below) Mobility equipment available at home: ADL equipment available at home: shower chair, grab bars Equipment recommendations for discharge: Equipment issued: none Current therapy frequency recommendation(s) in acute: 5 times a week Activity Recommendations for outside of rehab session: mayra Precautions and Weightbearing Status: OT Existing Precautions/Restrictions: fall Lines/Tubes/Drains (Rehab Status): PEG Patient Safety Communication Prior to Visit: Nursing Subjective: Pt agreeable to OT session, alert and smiling throughout, increased verbalizations though still dysarthric Pain: General Pain Documentation (Adult, OB, Peds) Presence of Pain: denies pain/discomfort Presence of Pain Score (Auto-calculated): 0 Objective/Observation: Vitals/Vitals Responses to Treatment: VSS O2 Device: room air Speech Speech: slurred speech, word-finding difficulties Cognition Overall Cognitive Status: Impaired Arousal/Alertness: Delayed responses to stimuli Orientation Level: Oriented to person (hopsital with choices, states "10" for month) Following Commands: Follows one step commands with increased time, Follows one step commands with repetition Safety Judgment: Decreased awareness of need for assistance, Decreased awareness of need for safety Awareness of Errors: Assistance required to identify errors made, Assistance required to correct errors made, Decreased awareness of errors Deficits: Decreased awareness of deficits Attention Span: Difficulty dividing attention Problem Solving: Assistance required to identify errors made, Assistance required to generate solutions Cognition Comments: improved alertness and initiation, command following ADL Assessment/Intervention: ADLs: Eating Assistance: Grooming Assistance: Minimal Grooming Location: edge of bed Grooming Deficit: Activity tolerance, Generalized weakness, Balance, Wash/dry face, Brushing hair Grooming Skilled Rationale (Verbal/Tactile/Visual/Demonstrat ion): Supervision, Setup, Facilitate positioning Grooming Intervention/Details: CGA to min for balance EOB during grooming task. Pt with good initiation to try to use right hand for task but limited due to significant weakness. Pt able to brush hair and wash face with set up A and tactile cues for brushing all around hair, min A to brush back of hair Bathing Assistance: UE Dressing Assistance: LE Dressing Assistance: Total LE Dressing Location: edge of bed LE Dressing Deficit: Activity tolerance, Generalized weakness, Balance, Don/doff L sock, Don/doff R sock LE Dressing Skilled Rationale (Verbal/Tactile/Visual/Demonstrat ion): Setup, Supervision LE Dressing Intervention/Details: pt able to extend at knees with cues to assist in donning socks Toilet Assistance: Extremity Assessments: See OT Evaluation flowsheet for Extremity Measurement updates. Balance: Sitting Balance Static Sitting-Level of Assistance: (CGA to SBA) Dynamic Sitting-Level of Assistance: Minimum assistance Skilled Rationale: Verbal cues, Tactile cues, Facilitate anterior shift Sitting Balance Skilled Intervention/Details: Pt sat EOB approx 12-15 min in between standing trials with primarily CGA to SBA For static balance with cues for upright posture. With use of UEs for task or dynamic tasks required up to min A for balance with cues for anterior weight shift due to retropulsion Standing Balance Static Standing-Level of Assistance: Moderate assistance, 2-person assist Standing-Balance Support: Arm in arm Skilled Rationale: Verbal cues, Tactile cues Standing Balance Skilled Intervention/Details: Completed standing trials x2 with bilat arm in arm, tactile cues at hips and cues for upright posture. Pt stood up to 45 sec-1 min each trial with improved upright posture Skin and Edema: Mobility Assessment/Intervention: Scooting Bridging Mobility Kirvin Level: Scooting/Bridging: dependent (less than 25% patient effort) Physical Assist: Scooting/Bridgin person assist Bed Features/Set-up: Scooting/Bridging: Flat Skilled Rationale: Verbal cues Skilled Intervention/Details: Scooting/Bridging: boost in bed Supine to Sit Mobility Kirvin Level: Supine->Sit: maximum assist (25% patient effort) Physical Assist: Supine->Sit: 2 person assist Bed Features/Set-up: Supine->Sit: Head of bed elevated Skilled Rationale: Verbal cues Skilled Intervention/Details: Supine->Sit: cues for initiation and sequencing, tactile cues to guide left hand to opposite rail, increased time Sit to Supine Mobility Kirvin Level: Sit->Supine: moderate assist (50% patient effort) Physical Assist: Sit->Supine: 2 person assist Bed Features/Set-up: Sit->Supine: Head of bed elevated Skilled Rationale: Verbal cues Skilled Intervention/Details: Sit->Supine: cues for pacing and initiation Transfer Assessment/Intervention: Sit to Stand Transfer Kirvin Level: Sit->Stand: moderate assist (50% patient effort) Physical Assist: Sit->Stand: 2 person assist Assistive Device: Sit->Stand: arm in arm Skilled Rationale: Verbal cues, Tactile cues Skilled Intervention/Details: Sit->Stand: Completed x2 from EOB with bilat arm in arm, tactile cues at hips and cues for upright posture Functional Mobility: Functional Mobility Skilled Intervention/Details - Functional Mobility/Gait: Pt able to side step towards left with bilat arm in arm and max Ax2, tactile cues to weight shift and step with bilat feet Outcome Score(s): CURRENT [facility] Daily Activity Inpatient Short Form Putting on/Taking Off Lower Body Clothin - Total Assistance Bathin - A Lot of Assistance Toiletin - Total Assistance Putting on/Taking Off Upper Body Clothin - Total Assistance Groomin - A Lot of Assistance Eatin - Total Assistance CURRENT [facility] Activity Raw Score: 8 CURRENT [facility] Activity Functional Limitation/Modifier: 85.69% Currently Impaired in Daily Activity - CM Assessment & Plan: Pt demonstrates increased activity tolerance, sitting and standing balance, alertness and communication from previous session and is making significant progress towards goals. Pt continues to present with deficits in balance, cognition, right strength, communication and requires 1-2 person assist for ADLs and functional transfer and mobility tasks. Pt requires continued skilled OT services to address functional deficits and maximize safety and independence in ADLs for return home with family safely. Patient Instruction/Education this session: Learners: Patient Education provided: Activity outside of therapy, Balance training, Plan of care, Positioning, Role of this discipline Teaching method: Verbal Education/Instruction Learner response: Needs review Learning considerations: Cognition Plan for next session: pivot transfer to chair or BSC, standing tolerance in prep for ADLs, neuro re-ed RUE Acute OT Goals Plan of Care by Jennifer Webster OT at 11/15/2024 11:25 AM Version 1 of 1 Problem: OT - ADLs Goal: Grooming - Patient will complete grooming edge of bed with minimal assistance for improved ability to safely complete ADLs. Outcome: Progressing Problem: OT - Transfers Goal: Transfers Toilet/ Bedside Commode - Patient will transfer to/from toilet/bedside commode with minimal assistance for improved ability to safely complete ADLs. Outcome: Progressing Problem: OT - Strength/ROM Goal: Neuro Re-education - Patient will participate in neuro re-ed of right upper extremity with minimal assistance and 75% accuracy for improved functional use in ADLs. Outcome: Progressing Problem: OT - Cognition Goal: Cognition Simple ADL - Patient will demonstrate improved cognition, completing simple ADL task for 5 minutes with no greater than min cues required to maintain attention. Outcome: Progressing Problem: OT - Vision Goal: Visual Scanning ADL - Patient will employ use of visual compensatory strategies with no greater than min cues in 5/5 trials to increase participation and safety in ADLs. Outcome: Progressing OT treatment consisted of the following to work and progress towards the above goal(s): OT Evaluation and Treatment Time Self Care/Home Management (ADLs) Time Entry: 23 Treating Therapist: Jennifer Webster OT Additional Details: OT Co-Eval/Treatment Information Co-evaluation/co-treatment performed?: Yes, simultaneous billable skilled care was necessary due to medical complexity and functional deficits Other discipline: PT Rationale for need to co-eval/treat: cognition, postural control Co-treatment goal focus: self-care PPE used during patient interaction: gloves Patient location at end of session: bed with head of bed elevated Alarms on at end of session: RN aware Needs in reach. Time In: 1100 Time Out: 1123 Total Visit Time: 23 minutes Total Treatment Time (skilled, billable minutes): 23 minutes Upon discontinuation of Acute Care Occupational Therapy Services or patient discharge from the hospital this note represents the current Occupational Therapy Discharge Summary. Acute Care Speech Language Pathology Treatment Diet Recommendations: Recommended Method of Nutrition: NPO, no oral diet recommended Recommended Medication Administration (as appropriate per MD): Non-Oral Type of Cues/Supervision: 1:1 assistance Assistance: nurse/aide, family Consider ice chips following oral care, given strict 1:1 assistance to assist in secretions clearance and reduce risk of disuse atrophy. *To prevent potential development of aspiration pneumonia/nosocomial infections, RECOMMEND: Oral care routine q4h and HOB upright as tolerated Best mode of Communication: spoken language Communication Strategies: -Ask conflicting yes/no questions (I.e. "Are you in pain?" followed by "Are you comfortable?") to ensure accurate response. -Provide pt options in field of 2. -Encourage use of intelligibility strategies: (SOS) Speak Up Over exaggerate / over pronounce sounds Slow down Discharge Recommendations: Based on the below outcome measures/assessment score(s), and SUPERVISOR OF INSTRUCTION clinical judgment, discharge destination recommendation is: Longterm Facility Barriers to discharge home: Need for 1:1 assist to ensure safety with all PO intake Supporting factors for discharge setting: Impaired speech and language skills limiting ability to communicate basic wants/needs, Impaired cognitive skills limiting independence Acute SUPERVISOR OF INSTRUCTION Outcomes Tracking Communicate basic wants and needs?: no Demo insight/appreciation of deficits?: unable to determine Complete basic problem solving?: unable to determine Current therapy frequency recommendation in acute: Speech/Lang/Cog Therapy Frequency: 3 times a week Swallow Therapy Frequency: 3 times a week Clinical Impression: Per MBS completed 11/09, Behzad Hay presents with moderate-severe pharyngeal dysphagia (Dysphagia Outcome and Severity Scale) in the setting of admission for acute L thalamic IPH, 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 Additionally, she presents with dysarthria, apraxia, and aphasia impacting her ability to communicate basic wants/needs. She required max cues to initiate a second cued swallow and for jaw opening exercises throughout. Continue NPO with meds non-oral, Okay for ice chips with RN post oral care. SUPERVISOR OF INSTRUCTION to continue to follow to address communication, motor speech, and dysphagia. Subjective information: Patient alert, resting in bed upon SUPERVISOR OF INSTRUCTION arrival. No family present. Pain: General Pain Documentation (Adult, OB, Peds) Presence of Pain: denies pain/discomfort Presence of Pain Score (Auto-calculated): 0 Precautions: Patient Safety Communication Prior to Visit: Nursing Lines/Tubes/Drains (Rehab Status): PEG Existing Precautions/Restrictions: fall Respiratory Status: O2 Sat (%): [96 %-100 %] 97 % O2 Device: room air Flow (L/min): [2] 2 Oxygen Concentration (%): [28] 28 Acute SUPERVISOR OF INSTRUCTION Goals Plan of Care by ULISES Lombardo at 11/15/2024 8:50 AM Version 1 of 1 Problem: SUPERVISOR OF INSTRUCTION - Language Goal: Command Following - Patient will complete 1-step commands with 75% accuracy with no cues in order to improve direction following for functional gains in ability to participate more independently in care Outcome: Ongoing Not addressed this date Goal: Yes/No Response - Patient will answer yes/no questions related to current situation/environment with 90% accuracy with no cues in order to improve ability to answer questions related to care Outcome: Ongoing Not addressed this date Goal: Name Basic Objects/Pictures - Patient will name basic objects/pictures with 75% accuracy, with fading cues in order to improve word-finding and functional communication Outcome: Progressing Addressed expressive language via confrontational naming task. Patient asked to name functional items within the room (e.g., strange, pen, bed, etc.). They required overall min-max cues in order to accurately name items throughout (10/10 errorless learning employed). Benefiting the most from choral production with SUPERVISOR OF INSTRUCTION given dysarthria/apraxia Progressed to elaboration of carrier phrase "I want" (e.g, "I want a strange"). With mass practice of objects used in above task, able to accurately state "I want __" (object) with moderate fading cues for apraxic errors/dysarthria errors. Goal: Object Identification by Name - Patient will complete identification tasks to select target item by name in field of 2 in 75% of opportunities with fading cues in order to demonstrate readiness for augmentative and alternative communication. Outcome: Met Addressed receptive language via object ID task. Patient able to identify object correctly in a field of 2 (later progressed to a field of three) in 90% of opportunities with x1 cue. Goal met. Problem: Dysphagia Goal: BRAYDEN- Patient will complete isometric exercises (5 repetitions with a 10-second interval between the sets for a maximum of 2 sets) to improve pharyngeal swallow given fading verbal cues for form and pacing over x3-5 sessions Outcome: Progressing Addressed hyolaryngeal elevation via Jaw Opening Exercise (BRAYDEN). Jaw Opening Exercise (BRAYDEN) is an evidence based isometric exercise to improve the suprahyoid muscle strength. Research has demonstrated that this training results in elevating the hyoid bone, elevating the UES, improving its opening, and decreasing the pharyngeal transit time. Training task involves isometric exercise, where the patient is asked to extend the jaw to its maximum and maintain this position for 10 seconds. Each exercise set consists of five repetitions with a 10-second interval between the sets for a maximum of 2 sets of 5. Patient was able to complete 10 reps today with max cues initially verbal cues for form and pacing to maximize benefit of exercise, able to fade, but patient unable to independently complete and no family present for exercise training. Goal: Bolus challenge - Patient will accept trials of thin liquids x10-15 trials, given moderate cues for use of strategies to improve bolus control/timing of swallow initiation with no signs of aspiration to determine readiness for repeat study Outcome: Ongoing Not addressed this date. Goal: Education 1 - Patient and/or caregiver will verbalize 2-3 swallow deficits and ways to reduce risks associated with aspiration when provided minimal cues to improve insight and understanding regarding current oropharyngeal swallow function Outcome: Ongoing Not addressed this date given patient's difficulties communicating and no family present for education. SUPERVISOR OF INSTRUCTION did re-orientate and educate on dysphagia and recommendations. Patient Education/Instruction Learners: Patient Education provided: Role of this discipline Teaching method: Verbal Education/Instruction Learner response: Needs review Learning preferences: Auditory Learning considerations: Speech expression, Speech comprehension Patient Instruction/Education comments: Reviewed SUPERVISOR OF INSTRUCTION purpose and POC. Plan for next session: 11/15: fair; dysphagia and language treatment. SUPERVISOR OF INSTRUCTION Outcomes: FOIS 1 Speech Language Pathologist: ULISES Lombardo Time In: 849 Time Out: 905 Total Visit Time: 16 minutes Total Treatment Time (skilled, billable minutes): 16 minutes Non-billable assistance during session: n/a Assisted by during session: n/a PPE used during patient interaction: gloves Patient location/status at end of session: bed with head of bed elevated, RN aware Patient alarms at end of session: none altered Needs in reach. SUPERVISOR OF INSTRUCTION Evaluation and Treatment Time Speech Therapy - Individual 02714: 8 Swallowing Dysfunction Treatment 37741: 8 Upon discontinuation of Acute Care Speech Therapy Services or patient discharge from the hospital this note represents the current Speech Therapy Discharge Summary Speech Language Pathology Attempt Note 11/14/2024 SUPERVISOR OF INSTRUCTION Therapy Completed: (P) Attempted Attempted to see pt for SUPERVISOR OF INSTRUCTION intervention, however pt is currently not medically appropriate (lethargic/drowsy, unable to sustain attention to meaningfully participate). Will re-attempt as able/appropriate. No charge. Attempted Reason: (P) Patient is not medically optimized to tolerate therapy program ULISES Lombardo Time In: (P) 0905 Time Out: (P) 0905 Total Visit Time: (P) 0 minutes Total Treatment Time (skilled, billable minutes): (P) 0 minutes Neurovascular Stroke Service Intracerebral Hemorrhage Note IDENTIFYING INFORMATION Behzad Hay MR# [id number] 11/14/2024 HISTORY OF PRESENT ILLNESS Behzad Hay is a 84 y.o. female with a history of A fib on eliquis (Last dose 10/18 AM), HTN, HLD who presented from [place] with L thalamic ICH. LKW 2100 10/17. Pt reportedly awoke at 0600 on 10/18 with some R sided weakness and was found by her home health aide at 0900 slumped against the wall with R sided weakness, R facial droop and dysarthria. NIHSS on arrival to [facility] ED 16 (2, 1 commands, 1 L gaze pref, 1 L facial droop, 2 R arm, 2 L leg, 3 R leg, 2 aphasia, 2 dysarthria). CTH at OSH with L thalamic IPH. CTA at OSH with no acute abnormalities . Repeat CTH at [facility] with redemonstration of known L thalamic ICH and remote L MCA territory infarct. BP on arrival 148/76. INTERVAL HISTORY 10/18: Admitted to [facility] for frequent neuro check 10/19: Transfer to [place] service 10/20: drowsy today after receiving Seroquel overnight, repeat CTH stable, increase metoprolol for afib RVR 10/21: improved exam today, SUPERVISOR OF INSTRUCTION re-eval pending, lisinopril increased to home dose 10/22: improved neuro exam however failed FEES, re-eval Monday 10/23: Seroquel/restraints ON for agitation. 10/24: Abd discomfort, urinary retention requiring straight cath 10/25: Held Lisinopril, pending MBS, has required sitter overnight, started on Aspirin today 10/26: A fib RVR last night, UA concerning for UTI, started on Ceftriaxone, started on Cardura for urinary retention, MBS today 10/27: MBS failed. DHT removed last night 2/2 clogging. GI c/s for PEG planning. 10/28: ROSE, complete atbx for UTI, GI recs for PEG planning pending, decrease lisinopril 10/29: self removed DHT this morning, billy mitt restraints applied, increase bowel regimen, hold lisinopril 10/30: Sitter at bedside. No acute events. 10/31: PEG likely next week. KUB in am per GI recs. 11/01: DTH removed/replaced. Tapia for retention/bladder rest. 11/02: Ampicillin for UTI. Sched. Seroquel 11/03: Received extra dose of seroquel at night. Increase night time dose. Urine cultures pending. 11/04: Had an episode of agitation overnight, no extra meds given, restraints changed to soft wrist. 11/05: A fib RVR this morning and hypotensive, total 1 L fluid bolus today, Changed abx to Amoxicillin, stopped morning Seroquel and increased nightly Seroquel dose, updated daughter at bedside 11/06: Has been off restraint since yesterday, continue sitter, awake and cooperative this morning 11/07: Exam stable, calm this morning, has been off sitter, plan to follow up with SUPERVISOR OF INSTRUCTION tomorrow for dysphagia 11/08: FEES planned, will discuss with GI team afterwards. 11/10: Discussed with GI team, family updated at bedside. CXR due to increase secretions. 11/11: CXR from yesterday stable, scheduled miralax, plan for PEG tomorrow, NPO at midnight, hold TF, CBC and coags ordered for tomorrow, hold DVT prophylaxis tomorrow AM 8/1: Mild resp distress ON. CXR benign. 11/13: PEG placed ON. Ongoing dispo planning. 11/14: Seroquel 25mg x1 ON; drowsy PHYSICAL EXAM Gen: Drowsy, NAD HEENT: normocephalic, no scalp lesions or tenderness, PERRLA, EOMI Neck: trachea midline CV: AFib on monitor Lungs: Respirations unlabored with equal chest rise Abd: soft, nontender, nondistended Extrem: Warm and well perfused, no cyanosis, clubbing, edema Neuro: alert, expressive aphasia, garbled/incoherent with some intermittently clear, follows some simple commands, R hemiparesis CN II visual snyder full to confrontation without visual extinction CN III, IV, PERRL. Gaze midline CN V CN VII R facial droop CN VIII hearing grossly intact to voice CN IX & X Dysarthria/garbled speech CN XI shoulder shrug full strength bilaterally CNXII tongue protrudes midline MOTOR EXAMINATION: R hemiparesis NIHSS Provider NIH Stroke Scale NIH Interval (Provider): daily NIH Level of Conciousness (Provider): 2 NIH LOC Questions (Provider): 2 NIH LOC Commands (Provider): 2 NIH Best Gaze (Provider): 0 NIH Visual (Provider): 0 NIH Facial Palsy (Provider): 1 NIH Left Arm Motor (Provider): 0 NIH Right Arm Motor (Provider): 2 NIH Left Leg Motor (Provider): 0 NIH Right Leg Motor (Provider): 0 NIH Limb Ataxia (Provider): 0 NIH Sensory (Provider): 0 NIH Best Language (Provider): 2 NIH Dysarthria (Provider): 2 NIH Extinction and Inattention (Provider): 0 NIH Total Score (Provider): 13 Intracerebral Hemorrhage Volume ICH Volume Date of Scan: 10/18/24 Time of Scan: 1347 (A) Maximum Length (cm): 1.1 cm (B) Perpendicular Length (cm): 1.8 cm (C) Number of Slices: 3 (C) Slice Thickness (cm) : 0.5 cm ICH Volume (ml) (Calculated Score): 1.49 Intracerebral Hemorrhage Score Intracerebral Hemorrhage (ICH) Scale [place] Coma Scale Points: 1-->GCS 5-12 Age>/=80: 1-->yes Infratentorial Origin of Hemorrhage?: 0-->no ICH Volume >/= 30cm(3): 0-->no (less than 30cm(3)) Intraventricular Hemorrhage?: 0-->no ICH Score (Calculated): 2 Score 30 Day Mortality following ICH 0 0% Mortality 1 13% Mortality 2 26% Mortality 3 72% Mortality 4 97% Mortality 5 100% Mortality ASSESSMENT AND PLAN Neuro: Acute left BG ICH 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 CTA brain/neck: No acute findings 6 hr CTH:Stable exam. Acute left thalamic hemorrhage with mild surrounding vasogenic edema. 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 MRI brain: Left thalamic hemorrhage as noted on October 18, 2024 CT head.Punctate right occipital and left cerebellar acute infarcts. Remote left MCA territory infarct. CTH follow up: Stable left thalamic parenchymal hematoma with mildly increased edema. No significant mass effect TTE: EF 61%, LDL 73, A1c 5.4 Etiology: Likely hypertensive Antiplatelet plan: started Aspirin on 10/25 Anticoagulation plan: Referral for cardiology ordered for Watchman consideration as family/patient had already been considering prior to hemorrhagic stroke. If unable to get watchman, resume home Eliquis in 1 month post stroke (11/18) Blood pressure goal: normotension Hemorrhagic Stroke Core Measures -NHISS on admission 16 -Patient has been started on Mechanical (SCD's) and Pharmacological (SQ heparin) DVT prophylaxis started after stable HCT. -Antiplatelet therapy is not indicated. -Anticoagulation therapy not indicated in hemorrhagic stroke -Patients LDL 73 and HgbA1c 5.4 were checked -Dysphagia screening ordered, and will be completed prior to patient receiving oral intake. -Stroke education booklet has been provided both written and verbal education to the patient and family regarding hemorrhagic strokes. We have reviewed the patient's personal modifiable risk factors including: HTN, on eliquis as well as education on reducing these risk factors. -Patient is being assessed for Rehab by PT/OT/Speech and PM&R if indicated. Essential HTN: Home antihypertensives: lisinopril 10mg BID and metoprolol 25mg BID -Continue Metoprolol 25 mg BID - PRN labetalol and hydralazine -Lisinopril discontinued 10/29 due to low BP, resume as indicated UTI: Cultures positive for enterococcus faecalis, continue Amoxicillin (end date: 11/10) Agitation/delirium: -10/29 removed DHT, billy mitts and sitter ordered -DHT removed again 11/01 -11/02: Seroquel scheduled 12.5 mg BID. Increased night dose to 25 mg on 11/03. GI will not place PEG until agitation managed 11/05: Increased nightly Seroquel to 37.5 mg and stopped morning dose 11/07: Has been off restraint since 11/05 and off sitter since 11/06 Acute urinary retention -Started on Cardura on 10/25 evening -Tapia was discontinued HLD -hold home atorvastatin 40mg due to elevated LFTs on admission, downtrended, likely resume at discharge Atrial Fibrillation - On home eliquis 2.5mg BID (LD 10/18 AM) --> held in setting of acute bleed - received Kcentra at OSH - continue metoprolol 25mg BID for rate control - Antiplatelet plan: plan to start Aspirin 81 mg post stroke day #10 (10/27/24) - Anticoagulation plan: Referral for cardiology ordered for Watchman consideration as family/patient had already been considering prior to hemorrhagic stroke. If unable to get watchman, resume home Eliquis in 1 month post stroke (11/18) Dysphagia: 2/2 stroke, FEES on 10/22 and MBS on 10/26, repeat FEES on 11/09, recommend continued NPO -PEG placed 11/12, continue TF Elevated LFTs (POA) - elevated on admit, repeat LFTs downtrended Fall Risk: Assessed for patient fall risk and discussed safety measures during rounding. Other problems: Complexity. Wound Documentation Any conditions listed below are present on admission unless otherwise specified. . Disposition: Behzad Hay will likely be discharged to pending medical readiness David Sutton, COMMUNITY RELATIONS OFFICER-AVIATION ELECTRONIC WARFARE OPERATOR 11/14/2024 11:35 AM VITAL SIGNS Temp: [97.8 F (36.6 C)-98.6 F (37 C)] 97.8 F (36.6 C) Pulse (Heart Rate): [86-101] 91 Resp Rate: [12-22] 12 BP: (94-120)/(56-67) 94/56 O2 Sat (%): [95 %-100 %] 100 % Oxygen Therapy: Oxygen Therapy O2 Sat (%): 100 % O2 Device: nasal cannula Flow (L/min): 4 Intake/Output: Intake/Output Summary (Last 24 hours) at 11/14/2024 1135 Last data filed at 11/14/2024 0954 Gross per 24 hour Intake 1230 ml Output 300 ml Net 930 ml LABS/CULTURES Lab Results Component Value Date WBC 10.55 11/12/2024 HGB 11.3 (L) 11/12/2024 HCT 35.6 11/12/2024 PLATELET 328 11/12/2024 MCV 96.7 11/12/2024 Lab Results Component Value Date SODIUM 135 11/12/2024 POTASSIUM 4.9 11/12/2024 CHLORIDE 101 11/12/2024 CO2 26 11/12/2024 BUN 26 (H) 11/12/2024 CREATSERUM 0.59 11/12/2024 GLUCOSE 125 11/12/2024 Lab Results Component Value Date CHOLESTEROL 140 10/18/2024 TRIG 106 10/18/2024 HDL 46 10/18/2024 LDLCALC 73 10/18/2024 Lab Results Component Value Date HGBA1C 5.4 10/18/2024 Lab Results Component Value Date ALBUMIN 3.9 10/19/2024 , No results found for: "CPK", TROP IMAGING/DIAGNOSTIC STUDIES MEDICATIONS aspirin 81 mg Per NG tube Daily Or aspirin 300 mg Rectal Daily doxazosin 4 mg Per NG tube QHS heparin 5,000 Units Subcutaneous Q8H 0800/1600/2200 Ipratropium-albuterol 3 mL Nebulization Q6HNS Melatonin 6 mg Per NG tube Daily early evening Metoprolol 25 mg Per NG tube Q12H Polyethylene glycol 17 g Per NG tube Daily [Held by provider] QUEtiapine 37.5 mg Per NG tube QHS Senna 17.2 mg Per NG tube Daily Water liquid (free water) 30 mL Per NG tube Q4H David Sutton APRN-NICO 11/14/2024 11:35 AM VITAL SIGNS Temp: [97.8 F (36.6 C)-98.6 F (37 C)] 97.8 F (36.6 C) Pulse (Heart Rate): [86-101] 91 Resp Rate: [12-22] 12 BP: (94-120)/(56-67) 94/56 O2 Sat (%): [95 %-100 %] 100 % IMAGING/DIAGNOSTIC STUDIES MEDICATIONS aspirin 81 mg Per NG tube Daily Or aspirin 300 mg Rectal Daily doxazosin 4 mg Per NG tube QHS heparin 5,000 Units Subcutaneous Q8H 0800/1600/2200 Ipratropium-albuterol 3 mL Nebulization Q6HNS Melatonin 6 mg Per NG tube Daily early evening Metoprolol 25 mg Per NG tube Q12H Polyethylene glycol 17 g Per NG tube Daily [Held by provider] QUEtiapine 37.5 mg Per NG tube QHS Senna 17.2 mg Per NG tube Daily Water liquid (free water) 30 mL Per NG tube Q4H Cosigned by Lc Salazar MD at 11/14/2024 1:12 PM EDT Associated attestation - Lc Salazar MD - 11/14/2024 1:12 PM EDT Attending Physician Note (GC) I interviewed and examined this patient with the SALES DRIVER. I reviewed the history and exam detailed in the note. I agree with the medical decision making with the following comment(s): Left thalmic ICH, generally clinically improving slightly but with severe persistent aphasia and encephalopathy. Agitated overnight and received quetiapine, more somnolent this morning. Will reduce subsequent quetiapine doses. Tolerating feeds via PEG. Awaiting placement. Neurovascular Stroke Service Intracerebral Hemorrhage Note IDENTIFYING INFORMATION Behzad Hay MR# [id number] 11/13/2024 HISTORY OF PRESENT ILLNESS Behzad Hay is a 84 y.o. female with a history of A fib on eliquis (Last dose 10/18 AM), HTN, HLD who presented from [place] with L thalamic ICH. LKW 2100 10/17. Pt reportedly awoke at 0600 on 10/18 with some R sided weakness and was found by her home health aide at 0900 slumped against the wall with R sided weakness, R facial droop and dysarthria. NIHSS on arrival to [facility] ED 16 (2, 1 commands, 1 L gaze pref, 1 L facial droop, 2 R arm, 2 L leg, 3 R leg, 2 aphasia, 2 dysarthria). CTH at OSH with L thalamic IPH. CTA at OSH with no acute abnormalities . Repeat CTH at [facility] with redemonstration of known L thalamic ICH and remote L MCA territory infarct. BP on arrival 148/76. INTERVAL HISTORY 10/18: Admitted to [facility] for frequent neuro check 10/19: Transfer to [place] service 10/20: drowsy today after receiving Seroquel overnight, repeat CTH stable, increase metoprolol for afib RVR 10/21: improved exam today, SUPERVISOR OF INSTRUCTION re-eval pending, lisinopril increased to home dose 10/22: improved neuro exam however failed FEES, re-eval Monday 10/23: Seroquel/restraints ON for agitation. 10/24: Abd discomfort, urinary retention requiring straight cath 10/25: Held Lisinopril, pending MBS, has required sitter overnight, started on Aspirin today 10/26: A fib RVR last night, UA concerning for UTI, started on Ceftriaxone, started on Cardura for urinary retention, MBS today 10/27: MBS failed. DHT removed last night 2/2 clogging. GI c/s for PEG planning. 10/28: ROSE, complete atbx for UTI, GI recs for PEG planning pending, decrease lisinopril 10/29: self removed DHT this morning, billy mitt restraints applied, increase bowel regimen, hold lisinopril 10/30: Sitter at bedside. No acute events. 10/31: PEG likely next week. KUB in am per GI recs. 11/01: DTH removed/replaced. Tapia for retention/bladder rest. 11/02: Ampicillin for UTI. Sched. Seroquel 11/03: Received extra dose of seroquel at night. Increase night time dose. Urine cultures pending. 11/04: Had an episode of agitation overnight, no extra meds given, restraints changed to soft wrist. 11/05: A fib RVR this morning and hypotensive, total 1 L fluid bolus today, Changed abx to Amoxicillin, stopped morning Seroquel and increased nightly Seroquel dose, updated daughter at bedside 11/06: Has been off restraint since yesterday, continue sitter, awake and cooperative this morning 11/07: Exam stable, calm this morning, has been off sitter, plan to follow up with SUPERVISOR OF INSTRUCTION tomorrow for dysphagia 11/08: FEES planned, will discuss with GI team afterwards. 11/10: Discussed with GI team, family updated at bedside. CXR due to increase secretions. 11/11: CXR from yesterday stable, scheduled miralax, plan for PEG tomorrow, NPO at midnight, hold TF, CBC and coags ordered for tomorrow, hold DVT prophylaxis tomorrow AM 11/12: Mild resp distress ON. CXR benign. 11/13: PEG placed ON. Ongoing dispo planning. PHYSICAL EXAM Gen: alert, NAD HEENT: normocephalic, no scalp lesions or tenderness, PERRLA, EOMI Neck: trachea midline CV: AFib on monitor Lungs: Respirations unlabored with equal chest rise Abd: soft, nontender, nondistended Extrem: Warm and well perfused, no cyanosis, clubbing, edema Neuro: alert, expressive aphasia, garbled/incoherent with some intermittently clear, follows some simple commands, R hemiparesis CN II visual snyder full to confrontation without visual extinction CN III, IV, PERRL. Gaze midline CN V CN VII R facial droop CN VIII hearing grossly intact to voice CN IX & X Dysarthria/garbled speech CN XI shoulder shrug full strength bilaterally CNXII tongue protrudes midline MOTOR EXAMINATION: R hemiparesis NIHSS Provider NIH Stroke Scale NIH Interval (Provider): daily NIH Level of Conciousness (Provider): 0 NIH LOC Questions (Provider): 2 NIH LOC Commands (Provider): 1 NIH Best Gaze (Provider): 0 NIH Visual (Provider): 0 NIH Facial Palsy (Provider): 1 NIH Left Arm Motor (Provider): 0 NIH Right Arm Motor (Provider): 2 NIH Left Leg Motor (Provider): 0 NIH Right Leg Motor (Provider): 0 NIH Limb Ataxia (Provider): 0 NIH Sensory (Provider): 0 NIH Best Language (Provider): 2 NIH Dysarthria (Provider): 2 NIH Extinction and Inattention (Provider): 0 NIH Total Score (Provider): 10 Intracerebral Hemorrhage Volume ICH Volume Date of Scan: 10/18/24 Time of Scan: 1347 (A) Maximum Length (cm): 1.1 cm (B) Perpendicular Length (cm): 1.8 cm (C) Number of Slices: 3 (C) Slice Thickness (cm) : 0.5 cm ICH Volume (ml) (Calculated Score): 1.49 Intracerebral Hemorrhage Score Intracerebral Hemorrhage (ICH) Scale [place] Coma Scale Points: 1-->GCS 5-12 Age>/=80: 1-->yes Infratentorial Origin of Hemorrhage?: 0-->no ICH Volume >/= 30cm(3): 0-->no (less than 30cm(3)) Intraventricular Hemorrhage?: 0-->no ICH Score (Calculated): 2 Score 30 Day Mortality following ICH 0 0% Mortality 1 13% Mortality 2 26% Mortality 3 72% Mortality 4 97% Mortality 5 100% Mortality ASSESSMENT AND PLAN Neuro: Acute left BG ICH 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 CTA brain/neck: No acute findings 6 hr CTH:Stable exam. Acute left thalamic hemorrhage with mild surrounding vasogenic edema. 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 MRI brain: Left thalamic hemorrhage as noted on October 18, 2024 CT head.Punctate right occipital and left cerebellar acute infarcts. Remote left MCA territory infarct. CTH follow up: Stable left thalamic parenchymal hematoma with mildly increased edema. No significant mass effect TTE: EF 61%, LDL 73, A1c 5.4 Etiology: Likely hypertensive Antiplatelet plan: started Aspirin on 10/25 Anticoagulation plan: Referral for cardiology ordered for Watchman consideration as family/patient had already been considering prior to hemorrhagic stroke. If unable to get watchman, resume home Eliquis in 1 month post stroke (11/18) Blood pressure goal: normotension Hemorrhagic Stroke Core Measures -NHISS on admission 16 -Patient has been started on Mechanical (SCD's) and Pharmacological (SQ heparin) DVT prophylaxis started after stable HCT. -Antiplatelet therapy is not indicated. -Anticoagulation therapy not indicated in hemorrhagic stroke -Patients LDL 73 and HgbA1c 5.4 were checked -Dysphagia screening ordered, and will be completed prior to patient receiving oral intake. -Stroke education booklet has been provided both written and verbal education to the patient and family regarding hemorrhagic strokes. We have reviewed the patient's personal modifiable risk factors including: HTN, on eliquis as well as education on reducing these risk factors. -Patient is being assessed for Rehab by PT/OT/Speech and PM&R if indicated. Essential HTN: Home antihypertensives: lisinopril 10mg BID and metoprolol 25mg BID -Continue Metoprolol 25 mg BID - PRN labetalol and hydralazine -Lisinopril discontinued 10/29 due to low BP, resume as indicated UTI: Cultures positive for enterococcus faecalis, continue Amoxicillin (end date: 11/10) Agitation/delirium: -10/29 removed DHT, billy mitts and sitter ordered -DHT removed again 11/01 -11/02: Seroquel scheduled 12.5 mg BID. Increased night dose to 25 mg on 11/03. GI will not place PEG until agitation managed 11/05: Increased nightly Seroquel to 37.5 mg and stopped morning dose 11/07: Has been off restraint since 11/05 and off sitter since 11/06 Acute urinary retention -Started on Cardura on 10/25 evening -Tapia was discontinued HLD -hold home atorvastatin 40mg due to elevated LFTs on admission, downtrended, likely resume at discharge Atrial Fibrillation - On home eliquis 2.5mg BID (LD 10/18 AM) --> held in setting of acute bleed - received Kcentra at OSH - continue metoprolol 25mg BID for rate control - Antiplatelet plan: plan to start Aspirin 81 mg post stroke day #10 (10/27/24) - Anticoagulation plan: Referral for cardiology ordered for Watchman consideration as family/patient had already been considering prior to hemorrhagic stroke. If unable to get watchman, resume home Eliquis in 1 month post stroke (11/18) Dysphagia: 2/2 stroke, FEES on 10/22 and MBS on 10/26, repeat FEES on 11/09, recommend continued NPO -PEG placed 11/12, continue TF Elevated LFTs (POA) - elevated on admit, repeat LFTs downtrended Fall Risk: Assessed for patient fall risk and discussed safety measures during rounding. Other problems: Complexity. Wound Documentation Any conditions listed below are present on admission unless otherwise specified. . Disposition: Behzad Hay will likely be discharged to pending medical readiness David Sutton, EAN-AVIATION ELECTRONIC WARFARE OPERATOR 11/13/2024 11:26 AM VITAL SIGNS Temp: [97.4 F (36.3 C)-99.4 F (37.4 C)] 97.4 F (36.3 C) Pulse (Heart Rate): [94-127] 105 Resp Rate: [16-26] 19 BP: (107-155)/(54-80) 115/54 O2 Sat (%): [94 %-100 %] 97 % Oxygen Therapy: Oxygen Therapy O2 Sat (%): 97 % O2 Device: room air Flow (L/min): 4 Intake/Output: Intake/Output Summary (Last 24 hours) at 11/13/2024 1126 Last data filed at 11/13/2024 1055 Gross per 24 hour Intake 150 ml Output 400 ml Net -250 ml LABS/CULTURES Lab Results Component Value Date WBC 10.55 11/12/2024 HGB 11.3 (L) 11/12/2024 HCT 35.6 11/12/2024 PLATELET 328 11/12/2024 MCV 96.7 11/12/2024 Lab Results Component Value Date SODIUM 135 11/12/2024 POTASSIUM 4.9 11/12/2024 CHLORIDE 101 11/12/2024 CO2 26 11/12/2024 BUN 26 (H) 11/12/2024 CREATSERUM 0.59 11/12/2024 GLUCOSE 125 11/12/2024 Lab Results Component Value Date CHOLESTEROL 140 10/18/2024 TRIG 106 10/18/2024 HDL 46 10/18/2024 LDLCALC 73 10/18/2024 Lab Results Component Value Date HGBA1C 5.4 10/18/2024 Lab Results Component Value Date ALBUMIN 3.9 10/19/2024 , No results found for: "CPK", TROP IMAGING/DIAGNOSTIC STUDIES MEDICATIONS aspirin 81 mg Per NG tube Daily Or aspirin 300 mg Rectal Daily doxazosin 4 mg Per NG tube QHS heparin 5,000 Units Subcutaneous Q8H 0800/1600/2200 Ipratropium-albuterol 3 mL Nebulization Q6HNS Melatonin 6 mg Per NG tube Daily early evening Metoprolol 25 mg Per NG tube Q12H Polyethylene glycol 17 g Per NG tube Daily [Held by provider] QUEtiapine 37.5 mg Per NG tube QHS Senna 17.2 mg Per NG tube Daily Water liquid (free water) 30 mL Per NG tube Q4H REID Botello 11/13/2024 11:26 AM VITAL SIGNS Temp: [97.4 F (36.3 C)-99.4 F (37.4 C)] 97.4 F (36.3 C) Pulse (Heart Rate): [94-127] 105 Resp Rate: [16-26] 19 BP: (107-155)/(54-80) 115/54 O2 Sat (%): [94 %-100 %] 97 % IMAGING/DIAGNOSTIC STUDIES MEDICATIONS aspirin 81 mg Per NG tube Daily Or aspirin 300 mg Rectal Daily doxazosin 4 mg Per NG tube QHS heparin 5,000 Units Subcutaneous Q8H 0800/1600/2200 Ipratropium-albuterol 3 mL Nebulization Q6HNS Melatonin 6 mg Per NG tube Daily early evening Metoprolol 25 mg Per NG tube Q12H Polyethylene glycol 17 g Per NG tube Daily [Held by provider] QUEtiapine 37.5 mg Per NG tube QHS Senna 17.2 mg Per NG tube Daily Water liquid (free water) 30 mL Per NG tube Q4H Cosigned by Lc Salazar MD at 11/14/2024 7:13 AM EDT Associated attestation - Lc Salazar MD - 11/14/2024 7:13 AM EDT Attending Physician Note (GC) I interviewed and examined this patient with the SALES DRIVER. I reviewed the history and exam detailed in the note. I agree with the medical decision making with the following comment(s): Left thalamic ICH with AF on apiaban. Plan to start apixaban 30 days after onset. Otherwise, exam slightly improving, planning for placement. Occupational Therapy Attempt Note 11/12/2024 OT Therapy Completed: Attempted Attempted Reason: Patient is unavailable due to test/procedure Jennifer Webster OT Speech Language Pathology Attempt Note: 11/12/2024 SUPERVISOR OF INSTRUCTION Therapy Completed: Attempted Attempted Reason: Patient is unavailable due to test/procedure No charge. Thank you, ULISES Leija Time In: 142 Time Out: 142 Total Visit Time: 0 minutes Total Treatment Time (skilled, billable minutes): 0 minutes Placement Plan Expected Discharge Date: 11/15/2024 Referred Level of Care: 11/15/2024 Barriers: Pending Peg Tube placement today Current Referrals and Status [facility] - Available CM called and spoke with patient's daughter and confirmed SNF choice. Preferred SNF, [facility], declined due to care needs - Daughter chose [facility] - CM reached out to SNF via AIDIN and vm requesting they initiate precert process today. CM pending a response. PAM Fleming, MECHANICAL PRODUCT DESIGN ENGINEER Communication Consultant Available by Secure Chat Neurovascular Stroke Service Intracerebral Hemorrhage Note IDENTIFYING INFORMATION Behzad Hay MR# [id number] 11/12/2024 HISTORY OF PRESENT ILLNESS Behzad Hay is a 84 y.o. female with a history of A fib on eliquis (Last dose 77 AM), HTN, HLD who presented from [place] with L thalamic ICH. LKW 2100 10/17. Pt reportedly awoke at 0600 on 10/18 with some R sided weakness and was found by her home health aide at 0900 slumped against the wall with R sided weakness, R facial droop and dysarthria. NIHSS on arrival to [facility] ED 16 (2, 1 commands, 1 L gaze pref, 1 L facial droop, 2 R arm, 2 L leg, 3 R leg, 2 aphasia, 2 dysarthria). CTH at OSH with L thalamic IPH. CTA at OSH with no acute abnormalities . Repeat CTH at [facility] with redemonstration of known L thalamic ICH and remote L MCA territory infarct. BP on arrival 148/76. INTERVAL HISTORY 10/18: Admitted to [facility] for frequent neuro check 10/19: Transfer to [place] service 10/20: drowsy today after receiving Seroquel overnight, repeat CTH stable, increase metoprolol for afib RVR 10/21: improved exam today, SUPERVISOR OF INSTRUCTION re-eval pending, lisinopril increased to home dose 10/22: improved neuro exam however failed FEES, re-eval Monday 10/23: Seroquel/restraints ON for agitation. 10/24: Abd discomfort, urinary retention requiring straight cath 10/25: Held Lisinopril, pending MBS, has required sitter overnight, started on Aspirin today 10/26: A fib RVR last night, UA concerning for UTI, started on Ceftriaxone, started on Cardura for urinary retention, MBS today 10/27: MBS failed. DHT removed last night 2/2 clogging. GI c/s for PEG planning. 10/28: ROSE, complete atbx for UTI, GI recs for PEG planning pending, decrease lisinopril 10/29: self removed DHT this morning, billy mitt restraints applied, increase bowel regimen, hold lisinopril 10/30: Sitter at bedside. No acute events. 10/31: PEG likely next week. KUB in am per GI recs. 11/01: DTH removed/replaced. Tapia for retention/bladder rest. 11/02: Ampicillin for UTI. Sched. Seroquel 11/03: Received extra dose of seroquel at night. Increase night time dose. Urine cultures pending. 11/04: Had an episode of agitation overnight, no extra meds given, restraints changed to soft wrist. 11/05: A fib RVR this morning and hypotensive, total 1 L fluid bolus today, Changed abx to Amoxicillin, stopped morning Seroquel and increased nightly Seroquel dose, updated daughter at bedside 11/06: Has been off restraint since yesterday, continue sitter, awake and cooperative this morning 11/07: Exam stable, calm this morning, has been off sitter, plan to follow up with SUPERVISOR OF INSTRUCTION tomorrow for dysphagia 11/08: FEES planned, will discuss with GI team afterwards. 11/10: Discussed with GI team, family updated at bedside. CXR due to increase secretions. 11/11: CXR from yesterday stable, scheduled miralax, plan for PEG tomorrow, NPO at midnight, hold TF, CBC and coags ordered for tomorrow, hold DVT prophylaxis tomorrow AM 11/12: Mild resp distress ON. CXR benign. PHYSICAL EXAM Gen: alert, NAD HEENT: normocephalic, no scalp lesions or tenderness, PERRLA, EOMI Neck: trachea midline CV: AFib on monitor Lungs: Respirations unlabored with equal chest rise Abd: soft, nontender, nondistended Extrem: Warm and well perfused, no cyanosis, clubbing, edema Neuro: alert, expressive aphasia, garbled/incoherent with some intermittently clear, follows some simple commands, R hemiparesis CN II visual snyder full to confrontation without visual extinction CN III, IV, PERRL. Gaze midline CN V CN VII R facial droop CN VIII hearing grossly intact to voice CN IX & X Dysarthria/garbled speech CN XI shoulder shrug full strength bilaterally CNXII tongue protrudes midline MOTOR EXAMINATION: R hemiparesis NIHSS Provider NIH Stroke Scale NIH Interval (Provider): daily NIH Level of Conciousness (Provider): 0 NIH LOC Questions (Provider): 2 NIH LOC Commands (Provider): 1 NIH Best Gaze (Provider): 0 NIH Visual (Provider): 0 NIH Facial Palsy (Provider): 1 NIH Left Arm Motor (Provider): 0 NIH Right Arm Motor (Provider): 2 NIH Left Leg Motor (Provider): 0 NIH Right Leg Motor (Provider): 0 NIH Limb Ataxia (Provider): 0 NIH Sensory (Provider): 0 NIH Best Language (Provider): 2 NIH Dysarthria (Provider): 2 NIH Extinction and Inattention (Provider): 0 NIH Total Score (Provider): 10 Intracerebral Hemorrhage Volume ICH Volume Date of Scan: 10/18/24 Time of Scan: 1347 (A) Maximum Length (cm): 1.1 cm (B) Perpendicular Length (cm): 1.8 cm (C) Number of Slices: 3 (C) Slice Thickness (cm) : 0.5 cm ICH Volume (ml) (Calculated Score): 1.49 Intracerebral Hemorrhage Score Intracerebral Hemorrhage (ICH) Scale Paul Coma Scale Points: 1-->GCS 5-12 Age>/=80: 1-->yes Infratentorial Origin of Hemorrhage?: 0-->no ICH Volume >/= 30cm(3): 0-->no (less than 30cm(3)) Intraventricular Hemorrhage?: 0-->no ICH Score (Calculated): 2 Score 30 Day Mortality following ICH 0 0% Mortality 1 13% Mortality 2 26% Mortality 3 72% Mortality 4 97% Mortality 5 100% Mortality ASSESSMENT AND PLAN Neuro: Acute left BG ICH 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 CTA brain/neck: No acute findings 6 hr CTH:Stable exam. Acute left thalamic hemorrhage with mild surrounding vasogenic edema. 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 MRI brain: Left thalamic hemorrhage as noted on October 18, 2024 CT head.Punctate right occipital and left cerebellar acute infarcts. Remote left MCA territory infarct. CTH follow up: Stable left thalamic parenchymal hematoma with mildly increased edema. No significant mass effect TTE: EF 61%, LDL 73, A1c 5.4 Etiology: Likely hypertensive Antiplatelet plan: started Aspirin on 10/25 Anticoagulation plan: Referral for cardiology ordered for Watchman consideration as family/patient had already been considering prior to hemorrhagic stroke. If unable to get watchman, resume home Eliquis in 1 month post stroke (11/18) Blood pressure goal: normotension Hemorrhagic Stroke Core Measures -NHISS on admission 16 -Patient has been started on Mechanical (SCD's) and Pharmacological (SQ heparin) DVT prophylaxis started after stable HCT. -Antiplatelet therapy is not indicated. -Anticoagulation therapy not indicated in hemorrhagic stroke -Patients LDL 73 and HgbA1c 5.4 were checked -Dysphagia screening ordered, and will be completed prior to patient receiving oral intake. -Stroke education booklet has been provided both written and verbal education to the patient and family regarding hemorrhagic strokes. We have reviewed the patient's personal modifiable risk factors including: HTN, on eliquis as well as education on reducing these risk factors. -Patient is being assessed for Rehab by PT/OT/Speech and PM&R if indicated. Essential HTN: Home antihypertensives: lisinopril 10mg BID and metoprolol 25mg BID -Continue Metoprolol 25 mg BID - PRN labetalol and hydralazine -Lisinopril discontinued 10/29 due to low BP, resume as indicated UTI: Cultures positive for enterococcus faecalis, continue Amoxicillin (end date: 11/10) Agitation/delirium: -10/29 removed DHT, billy mitts and sitter ordered -DHT removed again 11/01 -11/02: Seroquel scheduled 12.5 mg BID. Increased night dose to 25 mg on 11/03. GI will not place PEG until agitation managed 11/05: Increased nightly Seroquel to 37.5 mg and stopped morning dose 11/07: Has been off restraint since 11/05 and off sitter since 11/06 Acute urinary retention -Started on Cardura on 10/25 evening -Tapia was discontinued HLD -hold home atorvastatin 40mg due to elevated LFTs on admission, downtrended, likely resume at discharge Atrial Fibrillation - On home eliquis 2.5mg BID (LD 10/18 AM) --> held in setting of acute bleed - received Kcentra at OSH - continue metoprolol 25mg BID for rate control - Antiplatelet plan: plan to start Aspirin 81 mg post stroke day #10 (10/27/24) - Anticoagulation plan: Referral for cardiology ordered for Watchman consideration as family/patient had already been considering prior to hemorrhagic stroke. If unable to get watchman, resume home Eliquis in 1 month post stroke (11/18) Dysphagia: 2/2 stroke, FEES on 10/22 and MBS on 10/26, repeat FEES on 11/09, recommend continued NPO - Continue DHT and TF -Discussed with GI team 11/09 and 11/10, planned possibly on Sunday 11/12. Daughter aware Elevated LFTs (POA) - elevated on admit, repeat LFTs downtrended Fall Risk: Assessed for patient fall risk and discussed safety measures during rounding. Other problems: Complexity. Wound Documentation Any conditions listed below are present on admission unless otherwise specified. . Disposition: Behzad Hay will likely be discharged to pending medical readiness David Sutton APRN-AVIATION ELECTRONIC WARFARE OPERATOR 11/12/2024 11:03 AM VITAL SIGNS Temp: [97.5 F (36.4 C)-98.3 F (36.8 C)] 97.5 F (36.4 C) Pulse (Heart Rate): [94-126] 110 Resp Rate: [14-22] 16 BP: (91-119)/(55-67) 112/56 O2 Sat (%): [94 %-98 %] 98 % Oxygen Therapy: Oxygen Therapy O2 Sat (%): 98 % O2 Device: room air Flow (L/min): 2 Intake/Output: Intake/Output Summary (Last 24 hours) at 11/12/2024 1103 Last data filed at 11/12/2024 0125 Gross per 24 hour Intake 694 ml Output 150 ml Net 544 ml LABS/CULTURES Lab Results Component Value Date WBC 10.55 11/12/2024 HGB 11.3 (L) 11/12/2024 HCT 35.6 11/12/2024 PLATELET 328 11/12/2024 MCV 96.7 11/12/2024 Lab Results Component Value Date SODIUM 135 11/12/2024 POTASSIUM 4.9 11/12/2024 CHLORIDE 101 11/12/2024 CO2 26 11/12/2024 BUN 26 (H) 11/12/2024 CREATSERUM 0.59 11/12/2024 GLUCOSE 125 11/12/2024 Lab Results Component Value Date CHOLESTEROL 140 10/18/2024 TRIG 106 10/18/2024 HDL 46 10/18/2024 LDLCALC 73 10/18/2024 Lab Results Component Value Date HGBA1C 5.4 10/18/2024 Lab Results Component Value Date ALBUMIN 3.9 10/19/2024 , No results found for: "CPK", TROP IMAGING/DIAGNOSTIC STUDIES MEDICATIONS aspirin 81 mg Per NG tube Daily Or aspirin 300 mg Rectal Daily doxazosin 4 mg Per NG tube QHS [Transfer Hold] heparin 5,000 Units Subcutaneous Q8H 0800/1600/2200 Ipratropium-albuterol 3 mL Nebulization Q6HNS Melatonin 6 mg Per NG tube Daily early evening Metoprolol 25 mg Per NG tube Q12H Polyethylene glycol 17 g Per NG tube Daily [Held by provider] QUEtiapine 37.5 mg Per NG tube QHS Senna 17.2 mg Per NG tube Daily Water liquid (free water) 30 mL Per NG tube Q4H David Sutton APRN-NICO 11/12/2024 11:03 AM VITAL SIGNS Temp: [97.5 F (36.4 C)-98.3 F (36.8 C)] 97.5 F (36.4 C) Pulse (Heart Rate): [94-126] 110 Resp Rate: [14-22] 16 BP: (91-119)/(55-67) 112/56 O2 Sat (%): [94 %-98 %] 98 % IMAGING/DIAGNOSTIC STUDIES MEDICATIONS aspirin 81 mg Per NG tube Daily Or aspirin 300 mg Rectal Daily doxazosin 4 mg Per NG tube QHS [Transfer Hold] heparin 5,000 Units Subcutaneous Q8H 0800/1600/2200 Ipratropium-albuterol 3 mL Nebulization Q6HNS Melatonin 6 mg Per NG tube Daily early evening Metoprolol 25 mg Per NG tube Q12H Polyethylene glycol 17 g Per NG tube Daily [Held by provider] QUEtiapine 37.5 mg Per NG tube QHS Senna 17.2 mg Per NG tube Daily Water liquid (free water) 30 mL Per NG tube Q4H Cosigned by Lc Salazar MD at 11/12/2024 2:46 PM EDT Associated attestation - Lc Salazar MD - 11/12/2024 2:46 PM EDT Attending Physician Note (GC) I interviewed and examined this patient with the SALES DRIVER. I reviewed the history and exam detailed in the note. 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 Awaiting PEG, may happen later today. Placement Plan Expected Discharge Date: 11/15/2024 Referred Level of Care: SNF Barriers: Peg Tube placement, Insurance Pre-certification Current Referrals and Status [facility] - Available [facility] - Available Peg Tube placement planned for Sunday 11/12. CM uploaded current clinical and therapy notes to SNF referral. CM will continue to follow and assist patient through discharge planning process. PAM Fleming, MECHANICAL PRODUCT DESIGN ENGINEER Communication Consultant Available by Secure Chat Acute Physical Therapy Treatment Prior Gross Functional Mobility: needs assist Current AM-PAC score(s): CURRENT AM-PAC Mobility Raw Score: 6 Based on the above AM-PAC score(s) and PT clinical judgment, patient is a good candidate for discharge to Longterm Facility Barriers to discharge home: Patient needs assistance with functional mobility Mobility equipment available at home: ADL equipment available at home: shower chair, grab bars Equipment needed for discharge: to be determined Current therapy frequency recommendation in acute: PT Therapy Frequency: 5 times a week Precautions and Weightbearing Status: Existing Precautions/Restrictions: fall Patient Safety Communication Prior to Visit: Nursing Subjective: pt lethargic, trouble remaining awake Pain: General Pain Documentation (Adult, OB, Peds) Presence of Pain: not present: non-verbal indicator of pain/discomfort Presence of Pain Score (Auto-calculated): 0 Objective/Observation: Vitals/Vitals Responses to Treatment: WFL O2 Device: room air Cognition Overall Cognitive Status: Impaired Arousal/Alertness: Delayed responses to stimuli (lethargic) Orientation Level: (difficult to assess) Cognition Comments: pt very lethargic this date Extremity Assessments: See PT Evaluation flowsheet for Extremity Measurement updates. Skin and Edema: Balance: Sitting Balance Static Sitting-Level of Assistance: (min to max) Skilled Rationale: Positioning, Hand placement, Sequencing, Verbal cues, Full extension to upright positioning/posture, Finding/maintaining midline positioning Sitting Balance Skilled Intervention/Details: Pt completed EOB sitting with min to max assist, pt with right and retro leaning, intermittently attempts to correct to midline posture but requires assist to correct. Pt completed EOB sitting x 10 minues Mobility Assessment/Intervention: Supine to Sit Mobility Kirvin Level: Supine->Sit: dependent (less than 25% patient effort) Physical Assist: Supine->Sit: 2 person assist Bed Features/Set-up: Supine->Sit: Head of bed elevated, Use of bed rail Skilled Rationale: Positioning, Sequencing, Hand placement, Verbal cues Skilled Intervention/Details: Supine->Sit: pt lethargic this date Sit to Supine Mobility Kirvin Level: Sit->Supine: dependent (less than 25% patient effort) Physical Assist: Sit->Supine: 2 person assist Bed Features/Set-up: Sit->Supine: Flat Transfer Assessment/Intervention: Gait/Functional Mobility Assessment/Intervention: Stairs Assessment/Intervention: Outcome Score(s): CURRENT [facility] Basic Mobility Inpatient Short Form Turning over in bed: 1 - Total Assistance Moving from lying on back to sittin - Total Assistance Moving to and from bed to chair: 1 - Total Assistance Sitting/standing from chair: 1 - Total Assistance Walk in hospital room: 1 - Total Assistance Climbing 3-5 steps with a railin - Total Assistance CURRENT [facility] Mobility Raw Score: 6 CURRENT [facility] Mobility Functional Limitation: 100.00% Impaired in Basic Mobility Interventions: Assessment & Plan: Pt making minimal to no progress toward therapy goals this date, pt very lethargic this date, continues to require assist for all mobility Patient Instruction/Education this session: Learners: Patient Education provided: Activity outside of therapy, Discharge recommendations, Fall precautions Plan for next session: continue to progress sitting balance, standing balance Acute PT Goals Plan of Care by Crystal Desouza PT at 11/11/2024 12:54 PM Version 1 of 1 Problem: PT - General Goals Goal: Supine <-> Sit Transfers - Patient will perform supine to/from sit transfers with contact guard assistance and with use of hospital bed features in order to improve functional mobility and safety. Outcome: Progressing Goal: Sit <-> Stand Transfers - Patient will perform sit to/from stand transfers with minimal assistance and least restrictive device in order to improve functional mobility and safety. Outcome: Progressing Goal: Sitting Endurance/Balance - Patient will perform seated balance tasks for 10 minutes with contact guard assistance and UE support Outcome: Progressing PT treatment consisted of the following to progress towards the above goal(s): PT Evaluation and Treatment Time Neuromuscular Re-Education Time Entry: 15 Treating Therapist: Crystal Desouza PT Additional Details: PT Co-Eval/Treatment Information Co-evaluation/co-treatment performed?: Yes, simultaneous billable skilled care was necessary due to medical complexity and functional deficits Other discipline: OT Rationale for need to co-eval/treat: postural control Co-treatment goal focus: balance, mobility PPE used during patient interaction: gloves Patient location at end of session: bed with head of bed elevated Alarms on at end of session: RN aware, none altered Needs in reach. Time In: 1105 Time Out: 1120 Total Visit Time: 15 minutes Total Treatment Time (skilled, billable minutes): 15 minutes Upon discontinuation of Acute Care Physical Therapy Services or patient discharge from the hospital this note represents the current Physical Therapy Discharge Summary. Neurovascular Stroke Service Intracerebral Hemorrhage Note IDENTIFYING INFORMATION Behzad Hay MR# [id number] 11/11/2024 HISTORY OF PRESENT ILLNESS Behzad Hay is a 84 y.o. female with a history of A fib on eliquis (Last dose 10/18 AM), HTN, HLD who presented from [place] with L thalamic ICH. LKW 2100 10/17. Pt reportedly awoke at 0600 on 10/18 with some R sided weakness and was found by her home health aide at 0900 slumped against the wall with R sided weakness, R facial droop and dysarthria. NIHSS on arrival to [facility] ED 16 (2, 1 commands, 1 L gaze pref, 1 L facial droop, 2 R arm, 2 L leg, 3 R leg, 2 aphasia, 2 dysarthria). CTH at OSH with L thalamic IPH. CTA at OSH with no acute abnormalities . Repeat CTH at [facility] with redemonstration of known L thalamic ICH and remote L MCA territory infarct. BP on arrival 148/76. INTERVAL HISTORY 10/18: Admitted to [facility] for frequent neuro check 10/19: Transfer to [place] service 10/20: drowsy today after receiving Seroquel overnight, repeat CTH stable, increase metoprolol for afib RVR 10/21: improved exam today, SUPERVISOR OF INSTRUCTION re-eval pending, lisinopril increased to home dose 10/22: improved neuro exam however failed FEES, re-eval Monday 10/23: Seroquel/restraints ON for agitation. 10/24: Abd discomfort, urinary retention requiring straight cath 10/25: Held Lisinopril, pending MBS, has required sitter overnight, started on Aspirin today 10/26: A fib RVR last night, UA concerning for UTI, started on Ceftriaxone, started on Cardura for urinary retention, MBS today 10/27: MBS failed. DHT removed last night 2/2 clogging. GI c/s for PEG planning. 10/28: ROSE, complete atbx for UTI, GI recs for PEG planning pending, decrease lisinopril 10/29: self removed DHT this morning, billy mitt restraints applied, increase bowel regimen, hold lisinopril 10/30: Sitter at bedside. No acute events. 10/31: PEG likely next week. KUB in am per GI recs. 11/01: DTH removed/replaced. Tapia for retention/bladder rest. 11/02: Ampicillin for UTI. Sched. Seroquel 11/03: Received extra dose of seroquel at night. Increase night time dose. Urine cultures pending. 11/04: Had an episode of agitation overnight, no extra meds given, restraints changed to soft wrist. 11/05: A fib RVR this morning and hypotensive, total 1 L fluid bolus today, Changed abx to Amoxicillin, stopped morning Seroquel and increased nightly Seroquel dose, updated daughter at bedside 11/06: Has been off restraint since yesterday, continue sitter, awake and cooperative this morning 11/07: Exam stable, calm this morning, has been off sitter, plan to follow up with SUPERVISOR OF INSTRUCTION tomorrow for dysphagia 11/08: FEES planned, will discuss with GI team afterwards. 11/10: Discussed with GI team, family updated at bedside. CXR due to increase secretions. 11/11: CXR from yesterday stable, scheduled miralax, plan for PEG tomorrow, NPO at midnight, hold TF, CBC and coags ordered for tomorrow, hold DVT prophylaxis tomorrow AM PHYSICAL EXAM Gen: alert, NAD HEENT: normocephalic, no scalp lesions or tenderness, PERRLA, EOMI Neck: trachea midline CV: NSR on monitor Lungs: Respirations unlabored with equal chest rise Abd: soft, nontender, nondistended Extrem: Warm and well perfused, no cyanosis, clubbing, edema Neuro: alert, expressive aphasia, garbled/incoherent with some intermittently clear, follows some simple commands, R hemiparesis CN II visual snyder full to confrontation without visual extinction CN III, IV, PERRL. Gaze midline CN V CN VII R facial droop CN VIII hearing grossly intact to voice CN IX & X Dysarthria/garbled speech CN XI shoulder shrug full strength bilaterally CNXII tongue protrudes midline MOTOR EXAMINATION: R hemiparesis NIHSS Provider NIH Stroke Scale NIH Interval (Provider): daily NIH Level of Conciousness (Provider): 0 NIH LOC Questions (Provider): 2 NIH LOC Commands (Provider): 1 NIH Best Gaze (Provider): 0 NIH Visual (Provider): 0 NIH Facial Palsy (Provider): 1 NIH Left Arm Motor (Provider): 0 NIH Right Arm Motor (Provider): 2 NIH Left Leg Motor (Provider): 0 NIH Right Leg Motor (Provider): 0 NIH Limb Ataxia (Provider): 0 NIH Sensory (Provider): 0 NIH Best Language (Provider): 2 NIH Dysarthria (Provider): 2 NIH Extinction and Inattention (Provider): 0 NIH Total Score (Provider): 10 Intracerebral Hemorrhage Volume ICH Volume Date of Scan: 10/18/24 Time of Scan: 1347 (A) Maximum Length (cm): 1.1 cm (B) Perpendicular Length (cm): 1.8 cm (C) Number of Slices: 3 (C) Slice Thickness (cm) : 0.5 cm ICH Volume (ml) (Calculated Score): 1.49 Intracerebral Hemorrhage Score Intracerebral Hemorrhage (ICH) Scale Paul Coma Scale Points: 1-->GCS 5-12 Age>/=80: 1-->yes Infratentorial Origin of Hemorrhage?: 0-->no ICH Volume >/= 30cm(3): 0-->no (less than 30cm(3)) Intraventricular Hemorrhage?: 0-->no ICH Score (Calculated): 2 Score 30 Day Mortality following ICH 0 0% Mortality 1 13% Mortality 2 26% Mortality 3 72% Mortality 4 97% Mortality 5 100% Mortality ASSESSMENT AND PLAN Neuro: Acute left BG ICH 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 CTA brain/neck: No acute findings 6 hr CTH:Stable exam. Acute left thalamic hemorrhage with mild surrounding vasogenic edema. 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 MRI brain: Left thalamic hemorrhage as noted on October 18, 2024 CT head.Punctate right occipital and left cerebellar acute infarcts. Remote left MCA territory infarct. CTH follow up: Stable left thalamic parenchymal hematoma with mildly increased edema. No significant mass effect TTE: EF 61%, LDL 73, A1c 5.4 Etiology: Likely hypertensive Antiplatelet plan: started Aspirin on 10/25 Anticoagulation plan: Referral for cardiology ordered for Watchman consideration as family/patient had already been considering prior to hemorrhagic stroke. If unable to get watchman, resume home Eliquis in 1 month post stroke (11/18) Blood pressure goal: normotension Hemorrhagic Stroke Core Measures -[facility] on admission 16 -Patient has been started on Mechanical (SCD's) and Pharmacological (SQ heparin) DVT prophylaxis started after stable HCT. -Antiplatelet therapy is not indicated. -Anticoagulation therapy not indicated in hemorrhagic stroke -Patients LDL 73 and HgbA1c 5.4 were checked -Dysphagia screening ordered, and will be completed prior to patient receiving oral intake. -Stroke education booklet has been provided both written and verbal education to the patient and family regarding hemorrhagic strokes. We have reviewed the patient's personal modifiable risk factors including: HTN, on eliquis as well as education on reducing these risk factors. -Patient is being assessed for Rehab by PT/OT/Speech and PM&R if indicated. Essential HTN: Home antihypertensives: lisinopril 10mg BID and metoprolol 25mg BID -Metoprolol 25 mg BID - PRN labetalol and hydralazine -Lisinopril discontinued 10/29 due to low BP, resume as indicated UTI: Cultures positive for enterococcus faecalis, continue Amoxicillin (end date: 11/10) Agitation/delirium: -10/29 removed DHT, billy mitts and sitter ordered -DHT removed again 11/01 -11/02: Seroquel scheduled 12.5 mg BID. Increased night dose to 25 mg on 11/03. GI will not place PEG until agitation managed 11/05: Increased nightly Seroquel to 37.5 mg and stopped morning dose 11/07: Has been off restraint since 11/05 and off sitter since 11/06 Acute urinary retention -Started on Cardura on 10/25 evening -Tapia was discontinued HLD -hold home atorvastatin 40mg due to elevated LFTs on admission, downtrended, likely resume at discharge Atrial Fibrillation - On home eliquis 2.5mg BID (LD 7/ AM) --> held in setting of acute bleed - received Kcentra at OSH - continue metoprolol 25mg BID for rate control - Antiplatelet plan: plan to start Aspirin 81 mg post stroke day #10 (10/27/24) - Anticoagulation plan: Referral for cardiology ordered for Watchman consideration as family/patient had already been considering prior to hemorrhagic stroke. If unable to get watchman, resume home Eliquis in 1 month post stroke (11/18) Dysphagia: 2/2 stroke, FEES on 10/22 and MBS on 10/26, repeat FEES on 11/09, recommend continued NPO - Continue DHT and TF -Discussed with GI team 11/09 and 11/10, planned possibly on Sunday 11/12. Daughter aware Elevated LFTs (POA) - elevated on admit, repeat LFTs downtrended Fall Risk: Assessed for patient fall risk and discussed safety measures during rounding. Other problems: Complexity. Wound Documentation Any conditions listed below are present on admission unless otherwise specified. . Disposition: Behzad Hay will likely be discharged to pending medical readiness Ailyn Mullen, COMMUNITY RELATIONS OFFICER-[facility] 11/11/2024 11:25 AM VITAL SIGNS Temp: [98.2 F (36.8 C)-98.3 F (36.8 C)] 98.3 F (36.8 C) Pulse (Heart Rate): [96] 96 Resp Rate: [18] 18 BP: (102-111)/(56-59) 102/59 O2 Sat (%): [94 %-96 %] 94 % Oxygen Therapy: Oxygen Therapy O2 Sat (%): 94 % O2 Device: room air Intake/Output: Intake/Output Summary (Last 24 hours) at 11/11/2024 1125 Last data filed at 11/11/2024 1000 Gross per 24 hour Intake 1854.17 ml Output 675 ml Net 1179.17 ml LABS/CULTURES Lab Results Component Value Date WBC 9.05 11/09/2024 HGB 12.0 11/09/2024 HCT 37.7 11/09/2024 PLATELET 427 (H) 11/09/2024 MCV 96.2 11/09/2024 Lab Results Component Value Date SODIUM 137 11/09/2024 POTASSIUM 4.5 11/09/2024 CHLORIDE 101 11/09/2024 CO2 29 11/09/2024 BUN 32 (H) 11/09/2024 CREATSERUM 0.76 11/09/2024 GLUCOSE 107 11/09/2024 Lab Results Component Value Date CHOLESTEROL 140 10/18/2024 TRIG 106 10/18/2024 HDL 46 10/18/2024 LDLCALC 73 10/18/2024 Lab Results Component Value Date HGBA1C 5.4 10/18/2024 Lab Results Component Value Date ALBUMIN 3.9 10/19/2024 , No results found for: "CPK", TROP IMAGING/DIAGNOSTIC STUDIES MEDICATIONS aspirin 81 mg Per NG tube Daily Or aspirin 300 mg Rectal Daily doxazosin 4 mg Per NG tube QHS heparin 5,000 Units Subcutaneous Q8H 0800/1600/2200 Melatonin 6 mg Per NG tube Daily early evening Metoprolol 25 mg Per NG tube Q12H Polyethylene glycol 17 g Per NG tube Daily QUEtiapine 37.5 mg Per NG tube QHS Senna 17.2 mg Per NG tube Daily Water liquid (free water) 30 mL Per NG tube Q4H REID Gasca 11/11/2024 11:25 AM VITAL SIGNS Temp: [98.2 F (36.8 C)-98.3 F (36.8 C)] 98.3 F (36.8 C) Pulse (Heart Rate): [96] 96 Resp Rate: [18] 18 BP: (102-111)/(56-59) 102/59 O2 Sat (%): [94 %-96 %] 94 % IMAGING/DIAGNOSTIC STUDIES MEDICATIONS aspirin 81 mg Per NG tube Daily Or aspirin 300 mg Rectal Daily doxazosin 4 mg Per NG tube QHS heparin 5,000 Units Subcutaneous Q8H 0800/1600/2200 Melatonin 6 mg Per NG tube Daily early evening Metoprolol 25 mg Per NG tube Q12H Polyethylene glycol 17 g Per NG tube Daily QUEtiapine 37.5 mg Per NG tube QHS Senna 17.2 mg Per NG tube Daily Water liquid (free water) 30 mL Per NG tube Q4H Cosigned by Lc Salazar MD at 11/11/2024 5:06 PM EDT Associated attestation - Lc Salazar MD - 11/11/2024 5:06 PM EDT Attending Physician Note (GC) I interviewed and examined this patient with the SALES DRIVER. I reviewed the history and exam detailed in the note. I agree with the medical decision making with the following comment(s): Left thalamic ICH while on apixaban for AF. Persistent aphasia, dysphagia and somnolence. Awaiting PEG placement tomorrow. Otherwise workup complete and on appropriate secondary prevention for now. Acute Occupational Therapy Treatment Prior Gross Functional Mobility: needs assist Current AM-PAC score(s): CURRENT AM-PAC Activity Raw Score: 7 Based on the above AM-PAC score(s), and OT clinical judgment, discharge destination recommendation is: Longterm Facility Barriers to discharge home: Patient needs assistance with ADLs, Patient needs assistance with IADLs (see note below) Mobility equipment available at home: ADL equipment available at home: shower chair, grab bars Equipment recommendations for discharge: Equipment issued: none Current therapy frequency recommendation(s) in acute: 5 times a week Activity Recommendations for outside of rehab session: mayra Precautions and Weightbearing Status: OT Existing Precautions/Restrictions: fall Lines/Tubes/Drains (Rehab Status): Nasogastric tube Patient Safety Communication Prior to Visit: Nursing Subjective: Pt without verbalizations, very lethargic. Attempted to mouth x2 but not intelligible Pain: General Pain Documentation (Adult, OB, Peds) Presence of Pain: not present: non-verbal indicator of pain/discomfort Presence of Pain Score (Auto-calculated): 0 Objective/Observation: Vitals/Vitals Responses to Treatment: VSS O2 Device: room air Cognition Overall Cognitive Status: Impaired Arousal/Alertness: Inconsistent responses to stimuli Orientation Level: (appears to alert to name) Following Commands: Follows commands less than 25% of the time Safety Judgment: Decreased awareness of need for assistance, Decreased awareness of need for safety Awareness of Errors: Decreased awareness of errors, Assistance required to identify errors made, Assistance required to correct errors made Deficits: Decreased awareness of deficits Attention Span: Difficulty attending to directions Cognition Comments: very lethargic, intermittent eye opening, limited command following and interactions ADL Assessment/Intervention: ADLs: Eating Assistance: Grooming Assistance: Maximal Grooming Location: edge of bed Grooming Deficit: Activity tolerance, Generalized weakness, Balance, Brushing hair, Wash/dry face Grooming Skilled Rationale (Verbal/Tactile/Visual/Demonstrat ion): Setup, Supervision, Facilitate positioning Grooming Intervention/Details: max iniitation cues and hand over hand assist and then pt able to complete approx 25% of task with poor quality Bathing Assistance: UE Dressing Assistance: LE Dressing Assistance: Total LE Dressing Location: bed level LE Dressing Deficit: Don/doff L sock, Don/doff R sock LE Dressing Skilled Rationale (Verbal/Tactile/Visual/Demonstrat ion): Supervision, Setup LE Dressing Intervention/Details: no initiation Toilet Assistance: Extremity Assessments: See OT Evaluation flowsheet for Extremity Measurement updates. Balance: Sitting Balance Static Sitting-Level of Assistance: (min to max) Skilled Rationale: Verbal cues, Tactile cues Sitting Balance Skilled Intervention/Details: Pt sat EOB approx 8 min with min to max A due to right and retropulsive LOB. Intermittently attempting to correct balance but lethargic and requiring frequent cues and assist for posture Skin and Edema: Mobility Assessment/Intervention: Scooting Bridging Mobility Kirvin Level: Scooting/Bridging: dependent (less than 25% patient effort) Physical Assist: Scooting/Bridgin person assist Bed Features/Set-up: Scooting/Bridging: Flat Skilled Rationale: Verbal cues Skilled Intervention/Details: Scooting/Bridging: boost in bed Supine to Sit Mobility Kirvin Level: Supine->Sit: dependent (less than 25% patient effort) Physical Assist: Supine->Sit: 2 person assist Bed Features/Set-up: Supine->Sit: Head of bed elevated Skilled Rationale: Verbal cues Skilled Intervention/Details: Supine->Sit: no initiation Sit to Supine Mobility Kirvin Level: Sit->Supine: dependent (less than 25% patient effort) Physical Assist: Sit->Supine: 2 person assist Bed Features/Set-up: Sit->Supine: Head of bed elevated Skilled Rationale: Verbal cues Skilled Intervention/Details: Sit->Supine: no initiation Transfer Assessment/Intervention: Functional Mobility: Outcome Score(s): CURRENT AM-PAC Daily Activity Inpatient Short Form Putting on/Taking Off Lower Body Clothin - Total Assistance Bathin - Total Assistance Toiletin - Total Assistance Putting on/Taking Off Upper Body Clothin - Total Assistance Groomin - A Lot of Assistance Eatin - Total Assistance CURRENT AM-PAC Activity Raw Score: 7 CURRENT AM-PAC Activity Functional Limitation/Modifier: 92.44% Currently Impaired in Daily Activity - CM Interventions: Assessment & Plan: Pt with increased lethargy and decreased participation in ADLs and balance this session, limited progress towards ADL goals. Continues to require extensive assist x1-2 for all ADL and transfers and benefits from further skilled OT to maximize safety and I in ADLs for return home with family safely. Patient Instruction/Education this session: Learners: Patient, Adult Child/Children Education provided: Activity outside of therapy, Balance training, Discharge recommendations, Role of this discipline Teaching method: Verbal Education/Instruction Learner response: Applies knowledge, No evidence of learning (daughter applies, pt without evidence) Learning considerations: Cognition Plan for next session: increased EOB sitting balance and initiation of ADLs Acute OT Goals Plan of Care by Jennifer Webster OT at 11/11/2024 11:20 AM Version 1 of 1 Problem: OT - ADLs Goal: Grooming - Patient will complete grooming edge of bed with minimal assistance for improved ability to safely complete ADLs. Outcome: Ongoing Problem: OT - Cognition Goal: Cognition Simple ADL - Patient will demonstrate improved cognition, completing simple ADL task for 5 minutes with no greater than min cues required to maintain attention. Outcome: Ongoing Problem: OT - Vision Goal: Visual Scanning ADL - Patient will employ use of visual compensatory strategies with no greater than min cues in 5/5 trials to increase participation and safety in ADLs. Outcome: Ongoing OT treatment consisted of the following to work and progress towards the above goal(s): OT Evaluation and Treatment Time Neuromuscular Re-Education Time Entry: 16 Treating Therapist: Jennifer Webster OT Additional Details: OT Co-Eval/Treatment Information Co-evaluation/co-treatment performed?: Yes, simultaneous billable skilled care was necessary due to medical complexity and functional deficits Other discipline: PT Rationale for need to co-eval/treat: cognition, postural control Co-treatment goal focus: self-care PPE used during patient interaction: gloves Patient location at end of session: bed with head of bed elevated Alarms on at end of session: RN aware Needs in reach. Time In: 1104 Time Out: 1120 Total Visit Time: 16 minutes Total Treatment Time (skilled, billable minutes): 16 minutes Upon discontinuation of Acute Care Occupational Therapy Services or patient discharge from the hospital this note represents the current Occupational Therapy Discharge Summary. Speech Language Pathology Attempt Note 11/10/2024 SUPERVISOR OF INSTRUCTION Therapy Completed: (P) Yes Attempted to see pt for swallow/speech tx, however pt is currently not medically optimized (unable to remain alert to participate meaningfully- closing her eyes/falling back asleep after initially being woken up, noted gurgly wet quality as well). Team notified. Will re-attempt as able/appropriate. No charge. Attempted Reason: (P) Patient is not medically optimized to tolerate therapy program ULISES Lombardo Time In: (P) 926 Time Out: (P) 926 Total Visit Time: (P) 0 minutes Total Treatment Time (skilled, billable minutes): (P) 0 minutes Neurovascular Stroke Service Intracerebral Hemorrhage Note IDENTIFYING INFORMATION Behzad Hay MR# [id number] 11/10/2024 HISTORY OF PRESENT ILLNESS Behzad Hay is a 84 y.o. female with a history of A fib on eliquis (Last dose 10/18 AM), HTN, HLD who presented from [place] with L thalamic ICH. LKW 2100 10/17. Pt reportedly awoke at 0600 on 10/18 with some R sided weakness and was found by her home health aide at 0900 slumped against the wall with R sided weakness, R facial droop and dysarthria. NIHSS on arrival to [facility] ED 16 (2, 1 commands, 1 L gaze pref, 1 L facial droop, 2 R arm, 2 L leg, 3 R leg, 2 aphasia, 2 dysarthria). CTH at OSH with L thalamic IPH. CTA at OSH with no acute abnormalities . Repeat CTH at [facility] with redemonstration of known L thalamic ICH and remote L MCA territory infarct. BP on arrival 148/76. INTERVAL HISTORY 10/18: Admitted to [facility] for frequent neuro check 10/19: Transfer to [place] service 10/20: drowsy today after receiving Seroquel overnight, repeat CTH stable, increase metoprolol for afib RVR 10/21: improved exam today, SUPERVISOR OF INSTRUCTION re-eval pending, lisinopril increased to home dose 10/22: improved neuro exam however failed FEES, re-eval Monday 10/23: Seroquel/restraints ON for agitation. 10/24: Abd discomfort, urinary retention requiring straight cath 10/25: Held Lisinopril, pending MBS, has required sitter overnight, started on Aspirin today 10/26: A fib RVR last night, UA concerning for UTI, started on Ceftriaxone, started on Cardura for urinary retention, MBS today 10/27: MBS failed. DHT removed last night 2/2 clogging. GI c/s for PEG planning. 10/28: ROSE, complete atbx for UTI, GI recs for PEG planning pending, decrease lisinopril 10/29: self removed DHT this morning, billy mitt restraints applied, increase bowel regimen, hold lisinopril 10/30: Sitter at bedside. No acute events. 10/31: PEG likely next week. KUB in am per GI recs. 11/01: DTH removed/replaced. Tapia for retention/bladder rest. 11/02: Ampicillin for UTI. Sched. Seroquel 11/03: Received extra dose of seroquel at night. Increase night time dose. Urine cultures pending. 11/04: Had an episode of agitation overnight, no extra meds given, restraints changed to soft wrist. 11/05: A fib RVR this morning and hypotensive, total 1 L fluid bolus today, Changed abx to Amoxicillin, stopped morning Seroquel and increased nightly Seroquel dose, updated daughter at bedside 11/06: Has been off restraint since yesterday, continue sitter, awake and cooperative this morning 11/07: Exam stable, calm this morning, has been off sitter, plan to follow up with SUPERVISOR OF INSTRUCTION tomorrow for dysphagia 11/08: FEES planned, will discuss with GI team afterwards. 11/10: Discussed with GI team, family updated at bedside. CXR due to increase secretions. PHYSICAL EXAM Gen: alert, NAD HEENT: normocephalic, no scalp lesions or tenderness, PERRLA, EOMI Neck: trachea midline CV: NSR on monitor Lungs: Respirations unlabored with equal chest rise Abd: soft, nontender, nondistended Extrem: Warm and well perfused, no cyanosis, clubbing, edema Neuro: alert, expressive aphasia, garbled/incoherent with some intermittently clear, follows some simple commands, R hemiparesis CN II visual snyder full to confrontation without visual extinction CN III, IV, PERRL. Gaze midline CN V CN VII R facial droop CN VIII hearing grossly intact to voice CN IX & X Dysarthria/garbled speech CN XI shoulder shrug full strength bilaterally CNXII tongue protrudes midline MOTOR EXAMINATION: R hemiparesis NIHSS Provider NIH Stroke Scale NIH Interval (Provider): daily NIH Level of Conciousness (Provider): 0 NIH LOC Questions (Provider): 2 NIH LOC Commands (Provider): 1 NIH Best Gaze (Provider): 0 NIH Visual (Provider): 0 NIH Facial Palsy (Provider): 1 NIH Left Arm Motor (Provider): 0 NIH Right Arm Motor (Provider): 2 NIH Left Leg Motor (Provider): 0 NIH Right Leg Motor (Provider): 0 NIH Limb Ataxia (Provider): 0 NIH Sensory (Provider): 0 NIH Best Language (Provider): 2 NIH Dysarthria (Provider): 2 NIH Extinction and Inattention (Provider): 0 NIH Total Score (Provider): 10 Intracerebral Hemorrhage Volume ICH Volume Date of Scan: 10/18/24 Time of Scan: 1347 (A) Maximum Length (cm): 1.1 cm (B) Perpendicular Length (cm): 1.8 cm (C) Number of Slices: 3 (C) Slice Thickness (cm) : 0.5 cm ICH Volume (ml) (Calculated Score): 1.49 Intracerebral Hemorrhage Score Intracerebral Hemorrhage (ICH) Scale Paul Coma Scale Points: 1-->GCS 5-12 Age>/=80: 1-->yes Infratentorial Origin of Hemorrhage?: 0-->no ICH Volume >/= 30cm(3): 0-->no (less than 30cm(3)) Intraventricular Hemorrhage?: 0-->no ICH Score (Calculated): 2 Score 30 Day Mortality following ICH 0 0% Mortality 1 13% Mortality 2 26% Mortality 3 72% Mortality 4 97% Mortality 5 100% Mortality ASSESSMENT AND PLAN Neuro: Acute left BG ICH 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 CTA brain/neck: No acute findings 6 hr CTH:Stable exam. Acute left thalamic hemorrhage with mild surrounding vasogenic edema. 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 MRI brain: Left thalamic hemorrhage as noted on October 18, 2024 CT head.Punctate right occipital and left cerebellar acute infarcts. Remote left MCA territory infarct. CTH follow up: Stable left thalamic parenchymal hematoma with mildly increased edema. No significant mass effect TTE: EF 61%, LDL 73, A1c 5.4 Etiology: Likely hypertensive Antiplatelet plan: started Aspirin on 10/25 Anticoagulation plan: Referral for cardiology ordered for Watchman consideration as family/patient had already been considering prior to hemorrhagic stroke. If unable to get watchman, resume home Eliquis in 1 month post stroke (11/18) Blood pressure goal: normotension Hemorrhagic Stroke Core Measures -NCISS on admission 16 -Patient has been started on Mechanical (SCD's) and Pharmacological (SQ heparin) DVT prophylaxis started after stable HCT. -Antiplatelet therapy is not indicated. -Anticoagulation therapy not indicated in hemorrhagic stroke -Patients LDL 73 and HgbA1c 5.4 were checked -Dysphagia screening ordered, and will be completed prior to patient receiving oral intake. -Stroke education booklet has been provided both written and verbal education to the patient and family regarding hemorrhagic strokes. We have reviewed the patient's personal modifiable risk factors including: HTN, on eliquis as well as education on reducing these risk factors. -Patient is being assessed for Rehab by PT/OT/Speech and PM&R if indicated. Essential HTN: Home antihypertensives: lisinopril 10mg BID and metoprolol 25mg BID -Metoprolol 25 mg BID - PRN labetalol and hydralazine -Lisinopril discontinued 10/29 due to low BP, resume as indicated UTI: Cultures positive for enterococcus faecalis, continue Amoxicillin (end date: 11/10) Agitation/delirium: -10/29 removed DHT, billy mitts and sitter ordered -DHT removed again 11/01 -11/02: Seroquel scheduled 12.5 mg BID. Increased night dose to 25 mg on 11/03. GI will not place PEG until agitation managed 11/05: Increased nightly Seroquel to 37.5 mg and stopped morning dose 11/07: Has been off restraint since 11/05 and off sitter since 11/06 Acute urinary retention -Started on Cardura on 10/25 evening -Tapia was discontinued HLD -hold home atorvastatin 40mg due to elevated LFTs on admission, downtrended, likely resume at discharge Atrial Fibrillation - On home eliquis 2.5mg BID (LD 7 AM) --> held in setting of acute bleed - received Kcentra at OSH - continue metoprolol 25mg BID for rate control - Antiplatelet plan: plan to start Aspirin 81 mg post stroke day #10 (10/27/24) - Anticoagulation plan: Referral for cardiology ordered for Watchman consideration as family/patient had already been considering prior to hemorrhagic stroke. If unable to get watchman, resume home Eliquis in 1 month post stroke (11/18) Dysphagia: 2/2 stroke, FEES on 10/22 and MBS on 10/26, repeat FEES on 11/09, recommend continued NPO - Continue DHT and TF -Discussed with GI team 11/09 and 11/10, planned possibly on Sunday 11/12. Daughter aware Elevated LFTs (POA) - elevated on admit, repeat LFTs downtrended Fall Risk: Assessed for patient fall risk and discussed safety measures during rounding. Other problems: Complexity. Wound Documentation Any conditions listed below are present on admission unless otherwise specified. . Disposition: Behzad Hay will likely be discharged to pending medical readiness Reta Galarza APRN-NICO 11/10/2024 1:13 PM VITAL SIGNS Temp: [97.7 F (36.5 C)-98.3 F (36.8 C)] 97.7 F (36.5 C) Pulse (Heart Rate): [65-100] 85 Resp Rate: [17-20] 17 BP: (107-118)/(60-64) 107/64 O2 Sat (%): [97 %-99 %] 98 % Oxygen Therapy: Oxygen Therapy O2 Sat (%): 98 % O2 Device: room air Intake/Output: Intake/Output Summary (Last 24 hours) at 11/10/2024 1313 Last data filed at 11/10/2024 1303 Gross per 24 hour Intake 1937.84 ml Output 750 ml Net 1187.84 ml LABS/CULTURES Lab Results Component Value Date WBC 9.05 11/09/2024 HGB 12.0 11/09/2024 HCT 37.7 11/09/2024 PLATELET 427 (H) 11/09/2024 MCV 96.2 11/09/2024 Lab Results Component Value Date SODIUM 137 11/09/2024 POTASSIUM 4.5 11/09/2024 CHLORIDE 101 11/09/2024 CO2 29 11/09/2024 BUN 32 (H) 11/09/2024 CREATSERUM 0.76 11/09/2024 GLUCOSE 107 11/09/2024 Lab Results Component Value Date CHOLESTEROL 140 10/18/2024 TRIG 106 10/18/2024 HDL 46 10/18/2024 LDLCALC 73 10/18/2024 Lab Results Component Value Date HGBA1C 5.4 10/18/2024 Lab Results Component Value Date ALBUMIN 3.9 10/19/2024 , No results found for: "CPK", TROP IMAGING/DIAGNOSTIC STUDIES MEDICATIONS amoxicillin 500 mg Per NG tube Q8H aspirin 81 mg Per NG tube Daily Or aspirin 300 mg Rectal Daily doxazosin 2 mg Per NG tube QHS heparin 5,000 Units Subcutaneous Q8H 0800/1600/2200 Melatonin 6 mg Per NG tube Daily early evening Metoprolol 25 mg Per NG tube Q12H QUEtiapine 37.5 mg Per NG tube QHS Senna 17.2 mg Per NG tube Daily Water liquid (free water) 30 mL Per NG tube Q4H REID Canales 11/10/2024 1:13 PM VITAL SIGNS Temp: [97.7 F (36.5 C)-98.3 F (36.8 C)] 97.7 F (36.5 C) Pulse (Heart Rate): [65-100] 85 Resp Rate: [17-20] 17 BP: (107-118)/(60-64) 107/64 O2 Sat (%): [97 %-99 %] 98 % IMAGING/DIAGNOSTIC STUDIES MEDICATIONS amoxicillin 500 mg Per NG tube Q8H aspirin 81 mg Per NG tube Daily Or aspirin 300 mg Rectal Daily doxazosin 2 mg Per NG tube QHS heparin 5,000 Units Subcutaneous Q8H 0800/1600/2200 Melatonin 6 mg Per NG tube Daily early evening Metoprolol 25 mg Per NG tube Q12H QUEtiapine 37.5 mg Per NG tube QHS Senna 17.2 mg Per NG tube Daily Water liquid (free water) 30 mL Per NG tube Q4H Cosigned by Lc Salazar MD at 11/11/2024 8:20 AM EDT Associated attestation - Lc Salazar MD - 11/11/2024 8:20 AM EDT Attending Physician Note (GC) I interviewed and examined this patient with the SALES DRIVER. I reviewed the history and exam detailed in the note. I agree with the medical decision making with the following comment(s): Left thalamic ICH with AF on apixaban with prolonged hospitlization for persistent issues with communication and swallowing. Most recent speech eval suggests unlikely to tolerate oral diet, more than 3 weeks out from stroke, so PEG likely necessary and apparently concordant with patient preferences. [employer] --> IM Consult Serv [facility] --> [facility] Main IBD Consult Service Fellow GASTROENTEROLOGY PROGRESS NOTE Behzad Hay is a 84 y.o. female who has a past history notable for afib on eliquis (LD 7/7 AM), HTN, HLD who presents from [place] with L thalamic ICH with hosp course c/b Afib-RVR. UA concerning for UTI, started on Ceftriaxone. We are consulted for PEG tube placement. Patient had previously been evaluated but too agitated at the time to be appropriate for peg. Subjective/Interval Events: PEG tube placement previously held off due to agitation. Per primary team, patient's agitation has improved and she has not required mitts. Lab Results Component Value Date HGB 12.0 11/09/2024 HGB 12.0 11/06/2024 HGB 11.8 11/04/2024 Objective: Temp: [98.3 F (36.8 C)] 98.3 F (36.8 C) Pulse (Heart Rate): [79-100] 100 Resp Rate: [16-20] 20 BP: (114-118)/(60-74) 118/60 O2 Sat (%): [97 %] 97 % Wt Readings from Last 3 Encounters: 11/06/24 52.6 kg (116 lb) General: awake, alert, no apparent distress, well nourished HEENT: No scleral icterus, moist mucous membranes Cardiovascular: Regular rate and rhythm Pulmonary: Comfortably on RA Abdomen: Soft, non-tender, non-distended Extremities: Warm and well perfused, no edema Skin: Warm, dry, no rashes over exposed skin Neurological: Alert and oriented x3, moves all extremities spontaneously Psychiatric: Normal affect, normal mood, pleasant demeanor ROS 10-point ROS negative unless otherwise noted in HPI. Review of Systems Medications: amoxicillin 500 mg Per NG tube Q8H aspirin 81 mg Per NG tube Daily Or aspirin 300 mg Rectal Daily doxazosin 2 mg Per NG tube QHS heparin 5,000 Units Subcutaneous Q8H 0800/1600/2200 Melatonin 6 mg Per NG tube Daily early evening Metoprolol 25 mg Per NG tube Q12H QUEtiapine 37.5 mg Per NG tube QHS Senna 17.2 mg Per NG tube Daily Water liquid (free water) 30 mL Per NG tube Q4H Labs: All relevant labs were reviewed. Lab Results Component Value Date ALT 79 (H) 10/19/2024 AST 48 (H) 10/19/2024 ALKPHOS 171 (H) 10/19/2024 BILITOTAL 0.4 10/19/2024 BILIDIRECT <0.1 10/19/2024 INR 1.0 10/22/2024 Imaging: All relevant imaging and procedures were reviewed. Prior Endoscopy: ASSESSMENT AND PLAN: Behzad Hay is a 84 y.o. female who has a past history notable for afib on eliquis (LD 7 AM), HTN, HLD who presents from [place] with L thalamic ICH with hosp course c/b Afib-RVR. UA concerning for UTI, started on Ceftriaxone. We are re-consulted for PEG tube placement. IMPRESSION PEG Placement. Dysphagia Malnutrition. Need for fdc feeding. Assessment/Planning - No obvious contraindication for PEG tube placement - Will attempt PEG placement Sunday 11/12 - Please make NPO at midnight, including tube feeds. - Monitor for fevers, will need to be afebrile for >24hours - Check CBC and coags in the AM. Please ensure that hemoglobin is >7, platelets >50 and INR <2 - Please hold AM DVT prophylaxis - Ancef ordered (1 gm if patient is <80 kg; 2 gm if patient is >80 kg) as "supervisor production managing to the procedure". If pt has PCN or cephalosporin allergy, have ordered Clindamycin (900 mg IVPB) and Gentamycin (5 mg/kg of ABW) as "supervisor production managing to procedure." - If applicable, please ensure that ANC >1000 prior to endoscopic intervention (unless approved by endoscopist). Please do not transfuse patient blood products in the AM if the ANC is not as goal as the procedure will likely be rescheduled until ANC meets goal. - Endoscopy may need to be rescheduled for the following reasons: urgent / emergent procedures, change in clinic status (example - respiratory decompensation overnight, hypotension, etc), echocardiogram ordered but not complete prior to endoscopy or at the discretion of anesthesia staff This case was discussed with Dr. Reeder, the attending physician. If you have any questions or need any further information, please feel free to contact our consult team. Thank you for this consult and allowing us to participate in the care of Behzad Hay! Leeroy Pantoja MD Fellow Division of Gastroenterology, Hepatology & Nutrition [facility] Epic Chat with questions or Page [phone] For urgent/stat calls or consults 5pm to 7am or all day on the weekend, please page the on-call GI fellow on QGenda. [facility]--> Internal Medicine--> Gastroenterology, Hepatology, & Nutrition--> 1st Call Fel [facility] OR STAT/NEW GI Cons Wknd Day For follow up questions regarding this patient 7am to 5pm, contact the IBD consults fellow or VIDYA on QMobile Adsa. [facility]--> Internal Medicine--> Gastroenterology, Hepatology, & Nutrition--> IBD Consult Service Fel Day OR IBD Consult Service VIDYA Addendum: I independently saw and examined the patient on 11/10/24. The patient's care was discussed with the GI Fellow. The patient was previously evaluated for PEG placement by our team, with the timing postponed due to agitation. Currently the patient is calm, awake/alert. The patient's two daughters were at the bedside and we discussed PEG tube placement, which is aligned with their wishes.I agree with the findings and plan as outlined above by Dr. Pantoja. Nathalia Reeder MD Cosigned by Nathalia Reeder MD at 11/12/2024 1:28 AM EDT Acute Physical Therapy Treatment Prior Gross Functional Mobility: needs assist Current AM-PAC score(s): CURRENT AM-PAC Mobility Raw Score: 8 Based on the above AM-PAC score(s) and PT clinical judgment, patient is a good candidate for discharge to Longterm Facility Barriers to discharge home: Patient needs assistance with functional mobility Mobility equipment available at home: ADL equipment available at home: shower chair, grab bars Equipment needed for discharge: to be determined Current therapy frequency recommendation in acute: PT Therapy Frequency: 5 times a week Activity Recommendations for outside of rehab session: mayra lift Precautions and Weightbearing Status: Existing Precautions/Restrictions: fall Patient Safety Communication Prior to Visit: Nursing Subjective: pt continues to have speech deficits but alert, pleasant and motivated to participate Pain: General Pain Documentation (Adult, OB, Peds) Presence of Pain: not present: non-verbal indicator of pain/discomfort Presence of Pain Score (Auto-calculated): 0 Objective/Observation: Vitals/Vitals Responses to Treatment: WFL O2 Device: room air Cognition Overall Cognitive Status: Impaired Arousal/Alertness: Delayed responses to stimuli Orientation Level: Oriented to person Following Commands: Follows one step commands with increased time, Follows one step commands with repetition (50%) Safety Judgment: Decreased awareness of need for assistance, Decreased awareness of need for safety Cognition Comments: difficult to fully assess Extremity Assessments: See PT Evaluation flowsheet for Extremity Measurement updates. Skin and Edema: Balance: Sitting Balance Static Sitting-Level of Assistance: (stand by to min) Skilled Rationale: Positioning, Sequencing, Hand placement, Verbal cues, Full extension to upright positioning/posture, Finding/maintaining midline positioning Sitting Balance Skilled Intervention/Details: Pt completed EOB sitting with varying assist from stand by to min assist due to right lateral leaning and retro leaning. With frequent cues patient able to maintain sitting mostly with contact guard assist, cues for full trunk extension for improved posture. Pt completed EOB sitting x15-16 minutes Standing Balance Static Standing-Level of Assistance: Maximum assistance, 2-person assist Standing-Balance Support: Gait belt, Hand-held assist Skilled Rationale: Positioning, Sequencing, Hand placement, Verbal cues Standing Balance Skilled Intervention/Details: pt educated in standing with max assist of 2 and arm and arm assist, cues for full trunk and knee extension for improved posture. Pt completed standing x 20-30 seconds each attempt before requiring a sitting rest break Mobility Assessment/Intervention: Supine to Sit Mobility Kirvin Level: Supine->Sit: maximum assist (25% patient effort) Bed Features/Set-up: Supine->Sit: Head of bed elevated, Use of bed rail Skilled Rationale: Positioning, Sequencing, Hand placement, Verbal cues Skilled Intervention/Details: Supine->Sit: increased time and step by step cues for sequencing Sit to Supine Mobility Kirvin Level: Sit->Supine: maximum assist (25% patient effort) Physical Assist: Sit->Supine: 2 person assist Bed Features/Set-up: Sit->Supine: Flat Transfer Assessment/Intervention: Sit to Stand Transfer Kirvin Level: Sit->Stand: maximum assist (25% patient effort) Physical Assist: Sit->Stand: 2 person assist Assistive Device: Sit->Stand: gait belt, hand held assist Skilled Rationale: Positioning, Sequencing, Verbal cues, Hand placement Skilled Intervention/Details: Sit->Stand: pt educated in sit to stand transfers with max assist of 2, arm and arm assist, cues for full trunk extension Gait/Functional Mobility Assessment/Intervention: Stairs Assessment/Intervention: Outcome Score(s): CURRENT [facility] Basic Mobility Inpatient Short Form Turning over in bed: 2 - A Lot of Assistance Moving from lying on back to sittin - A Lot of Assistance Moving to and from bed to chair: 1 - Total Assistance Sitting/standing from chair: 1 - Total Assistance Walk in hospital room: 1 - Total Assistance Climbing 3-5 steps with a railin - Total Assistance CURRENT [facility] Mobility Raw Score: 8 CURRENT [facility] Mobility Functional Limitation: 86.62% Impaired in Basic Mobility Interventions: Intervention 1 Intervention Name: LE ther ex Sets/Reps/Duration: Pt educated in bilateral LE ther ex in sitting in all planes to increase strength and endurance Assessment & Plan: Pt making good progress toward therapy goals, improved balance/endurance and functional mobility Patient Instruction/Education this session: Learners: Patient Education provided: Activity outside of therapy, Discharge recommendations, Fall precautions Plan for next session: continue to progress sitting balance, sit to stand transfers, OOB to chair when able Acute PT Goals Plan of Care by Crystal Desouza PT at 11/09/2024 12:00 PM Version 1 of 1 Problem: PT - General Goals Goal: Supine <-> Sit Transfers - Patient will perform supine to/from sit transfers with contact guard assistance and with use of hospital bed features in order to improve functional mobility and safety. Outcome: Progressing Goal: Sit <-> Stand Transfers - Patient will perform sit to/from stand transfers with minimal assistance and least restrictive device in order to improve functional mobility and safety. Outcome: Progressing Goal: Standing Endurance/Balance - Patient will perform standing balance tasks for 8 min with minimal assistance and least restrictive device Outcome: Progressing PT treatment consisted of the following to progress towards the above goal(s): PT Evaluation and Treatment Time Neuromuscular Re-Education Time Entry: 25 Treating Therapist: Crystal Desouza PT Additional Details: PT Co-Eval/Treatment Information Co-evaluation/co-treatment performed?: Yes, simultaneous billable skilled care was necessary due to medical complexity and functional deficits Other discipline: OT Rationale for need to co-eval/treat: cognition, coordination, postural control Co-treatment goal focus: balance, mobility PPE used during patient interaction: gloves Patient location at end of session: bed with head of bed elevated Alarms on at end of session: RN aware, none altered Needs in reach. Time In: 1010 Time Out: 1035 Total Visit Time: 25 minutes Total Treatment Time (skilled, billable minutes): 25 minutes Upon discontinuation of Acute Care Physical Therapy Services or patient discharge from the hospital this note represents the current Physical Therapy Discharge Summary. Acute Occupational Therapy Treatment Prior Gross Functional Mobility: needs assist Current AM-PAC score(s): CURRENT AM-PAC Activity Raw Score: 10 Based on the above AM-PAC score(s), and OT clinical judgment, discharge destination recommendation is: Longterm Facility Barriers to discharge home: Patient needs assistance with ADLs, Patient needs assistance with IADLs (see note below) Mobility equipment available at home: ADL equipment available at home: shower chair, grab bars Equipment recommendations for discharge: Equipment issued: none Current therapy frequency recommendation(s) in acute: 5 times a week Activity Recommendations for outside of rehab session: mayra Precautions and Weightbearing Status: OT Existing Precautions/Restrictions: fall Lines/Tubes/Drains (Rehab Status): Nasogastric tube Patient Safety Communication Prior to Visit: Nursing Subjective: Pt alert and smiling throughout, limited intelligibility of speech Pain: General Pain Documentation (Adult, OB, Peds) Presence of Pain: not present: non-verbal indicator of pain/discomfort Presence of Pain Score (Auto-calculated): 0 Objective/Observation: Vitals/Vitals Responses to Treatment: VSS O2 Device: room air Speech Speech: word-finding difficulties Cognition Overall Cognitive Status: Impaired Arousal/Alertness: Delayed responses to stimuli Orientation Level: (unable to formally assess but responds to name) Following Commands: Follows one step commands with increased time, Follows one step commands with repetition (greater than 50% of 1 step commands) Safety Judgment: Decreased awareness of need for assistance, Decreased awareness of need for safety Awareness of Errors: Assistance required to identify errors made, Assistance required to correct errors made Deficits: Decreased awareness of deficits Attention Span: Difficulty attending to directions Cognition Comments: improved alertness and command following ADL Assessment/Intervention: ADLs: Eating Assistance: Grooming Assistance: Minimal Grooming Location: edge of bed Grooming Deficit: Generalized weakness, Activity tolerance, Balance, Wash/dry face, Oral care Grooming Skilled Rationale (Verbal/Tactile/Visual/Demonstrat ion): Setup, Supervision, Facilitate positioning Grooming Intervention/Details: intermittent cues for anterior weight shift and upright posture. Pt with good initiation to attempt to use right hand but due to strength deficits unable to use right hand for task. Pt able to brush hair and wash face with left hand and cues for thoroughness Bathing Assistance: UE Dressing Assistance: LE Dressing Assistance: Maximal LE Dressing Location: edge of bed LE Dressing Deficit: Activity tolerance, Generalized weakness, Balance, Don/doff R sock, Don/doff L sock LE Dressing Skilled Rationale (Verbal/Tactile/Visual/Demonstrat ion): Supervision, Setup, Facilitate positioning LE Dressing Intervention/Details: Pt able to initiate taking socks and reaching down to feet to attempt to don socks but unable to hook socks over feet to pull up Toilet Assistance: Extremity Assessments: See OT Evaluation flowsheet for Extremity Measurement updates. Balance: Sitting Balance Static Sitting-Level of Assistance: (CGA to min) Skilled Rationale: Verbal cues, Tactile cues, Facilitate anterior shift, Full extension to upright positioning/posture Sitting Balance Skilled Intervention/Details: Pt sat EOB approx 15 min in between standing trials with primarily CGA to min. Pt with occasional retropulsive LOB and with right lateral lean but able to correct with cues Standing Balance Static Standing-Level of Assistance: Maximum assistance, Dependent, 2-person assist Standing-Balance Support: Gait belt, Hand-held assist Skilled Rationale: Verbal cues, Tactile cues, Full extension to upright positioning/posture, Upright gaze/neck extension Standing Balance Skilled Intervention/Details: completed x3 trials with bilat arm in arm, tactile cues at hips and blocking knees. Cues for upright posture. Pt stood approx 20-30 sec each trial with flexed knees and unable to attain full upright posture Skin and Edema: Mobility Assessment/Intervention: Scooting Bridging Mobility Kirvin Level: Scooting/Bridging: dependent (less than 25% patient effort) Physical Assist: Scooting/Bridgin person assist Bed Features/Set-up: Scooting/Bridging: Flat Skilled Rationale: Verbal cues Skilled Intervention/Details: Scooting/Bridging: boost in bed Supine to Sit Mobility Kirvin Level: Supine->Sit: maximum assist (25% patient effort) Bed Features/Set-up: Supine->Sit: Head of bed elevated Skilled Rationale: Verbal cues, Tactile cues Skilled Intervention/Details: Supine->Sit: step by step cues and initiation cues, increased time Sit to Supine Mobility Kirvin Level: Sit->Supine: maximum assist (25% patient effort) Physical Assist: Sit->Supine: 2 person assist Bed Features/Set-up: Sit->Supine: Flat Skilled Rationale: Verbal cues Transfer Assessment/Intervention: Sit to Stand Transfer Kirvin Level: Sit->Stand: maximum assist (25% patient effort) Physical Assist: Sit->Stand: 2 person assist Assistive Device: Sit->Stand: gait belt, hand held assist Skilled Rationale: Verbal cues, Tactile cues, Upright gaze/neck extension Skilled Intervention/Details: Sit->Stand: Completed x3 trials from EOB with bilat arm in arm, blocking bilat knees, tactile cues at hips. Pt with tightness in hips and bilat internal rotation limiting full upright posture. Functional Mobility: Outcome Score(s): CURRENT AM-PAC Daily Activity Inpatient Short Form Putting on/Taking Off Lower Body Clothin - Total Assistance Bathin - A Lot of Assistance Toiletin - Total Assistance Putting on/Taking Off Upper Body Clothin - A Lot of Assistance Groomin - A Little Assistance Eatin - Total Assistance CURRENT AM-PAC Activity Raw Score: 10 CURRENT AM-PAC Activity Functional Limitation/Modifier: 74.70% Currently Impaired in Daily Activity - CL Interventions: Assessment & Plan: Pt demonstrates increased activity tolerance, sitting balance, initiation of ADLs EOB from previous session and is making good progress towards goals. Pt continues to present with deficits in balance, cognition, strength, communication and requires 1-2 person assist for ADLs and functional transfer and mobility tasks. Pt requires continued skilled OT services to address functional deficits and maximize safety and independence in ADLs for return home safely. Patient Instruction/Education this session: Learners: Patient Education provided: Activity outside of therapy, Balance training, Plan of care, Role of this discipline Teaching method: Verbal Education/Instruction Learner response: Needs review Learning considerations: Cognition Plan for next session: increased EOB sitting balance and funcitonal reaching, neuro re-ed MAGGY pivot to chair Acute OT Goals Plan of Care by Jennifer Webster OT at 11/09/2024 10:35 AM Version 1 of 1 Problem: OT - ADLs Goal: Grooming - Patient will complete grooming edge of bed with minimal assistance for improved ability to safely complete ADLs. Outcome: Progressing Problem: OT - Strength/ROM Goal: Neuro Re-education - Patient will participate in neuro re-ed of right upper extremity with minimal assistance and 75% accuracy for improved functional use in ADLs. Outcome: Progressing Problem: OT - Cognition Goal: Cognition Simple ADL - Patient will demonstrate improved cognition, completing simple ADL task for 5 minutes with no greater than min cues required to maintain attention. Outcome: Progressing Problem: OT - Vision Goal: Visual Scanning ADL - Patient will employ use of visual compensatory strategies with no greater than min cues in 5/5 trials to increase participation and safety in ADLs. Outcome: Progressing OT treatment consisted of the following to work and progress towards the above goal(s): OT Evaluation and Treatment Time Self Care/Home Management (ADLs) Time Entry: 24 Treating Therapist: Jennifer Webster OT Additional Details: OT Co-Eval/Treatment Information Co-evaluation/co-treatment performed?: Yes, simultaneous billable skilled care was necessary due to medical complexity and functional deficits Other discipline: PT Rationale for need to co-eval/treat: cognition, postural control Co-treatment goal focus: self-care PPE used during patient interaction: gloves Patient location at end of session: bed with head of bed elevated Alarms on at end of session: RN aware Needs in reach. Time In: 1011 Time Out: 1035 Total Visit Time: 24 minutes Total Treatment Time (skilled, billable minutes): 24 minutes Upon discontinuation of Acute Care Occupational Therapy Services or patient discharge from the hospital this note represents the current Occupational Therapy Discharge Summary. Acute Care Speech Language Pathology Treatment Diet Recommendations: Recommended Method of Nutrition: NPO, no oral diet recommended Recommended Medication Administration (as appropriate per MD): Non-Oral Type of Cues/Supervision: 1:1 assistance Assistance: nurse/aide, family Consider ice chips following oral care, given strict 1:1 assistance to assist in secretions clearance and reduce risk of disuse atrophy. *To prevent potential development of aspiration pneumonia/nosocomial infections, RECOMMEND: Oral care routine q4h and HOB upright as tolerated Best mode of Communication: spoken language Communication Strategies: -Ask conflicting yes/no questions (I.e. "Are you in pain?" followed by "Are you comfortable?") to ensure accurate response. -Provide pt options in field of 2. -Encourage use of intelligibility strategies: (SOS) Speak Up Over exaggerate / over pronounce sounds Slow down Discharge Recommendations: Based on the below outcome measures/assessment score(s) and SUPERVISOR OF INSTRUCTION clinical judgment, discharge destination recommendation is: Longterm Facility Barriers to discharge home: Need for 1:1 assist to ensure safety with all PO intake, Inability to communicate basic wants/needs Supporting factors for discharge setting: Impaired speech and language skills limiting ability to communicate basic wants/needs, Impaired swallow function limiting nutritional status and safety with oral intake Acute SUPERVISOR OF INSTRUCTION Outcomes Tracking Communicate basic wants and needs?: no Demo insight/appreciation of deficits?: unable to determine Complete basic problem solving?: unable to determine Current therapy frequency recommendation in acute: Speech/Lang/Cog Therapy Frequency: 3 times a week Swallow Therapy Frequency: 3 times a week Clinical Impression: Behzad Hay presents with moderate oropharyngeal dysphagia (per MBS 10/26) s/p acute L thalamic IPH, 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 Pt demonstrated adequate participation/improved alertness compared to prior session. Pt continues to demonstrate improved alertness/participation. Noted increased wet vocal quality and coughing/throat clearing. Given improved level of alertness/participation and duration since prior instrumental swallow assessment (2 weeks), plan to proceed with FEES this date. Continue NPO with meds non-oral with allowance of ice chips after oral care in the interim. Additionally, she presents with ongoing dysarthria, aphasia and apraxia impacting ability to communicate her wants/needs. Today she required min cues for yes/no question accuracy and command following. Pt noted with improved basic naming of functional items around room. Pt unable to identify objects on [employer] communication board this date. Ongoing SUPERVISOR OF INSTRUCTION services recommended. Subjective information: Pt asleep upon entry but easily roused. Pt with increased wet vocal quality this date with frequent coughing/throat clearing outside of PO trials. Pain: General Pain Documentation (Adult, OB, Peds) Presence of Pain: not present: non-verbal indicator of pain/discomfort Presence of Pain Score (Auto-calculated): 0 Precautions: Patient Safety Communication Prior to Visit: Nursing Lines/Tubes/Drains (Rehab Status): Nasogastric tube Existing Precautions/Restrictions: fall Respiratory Status: O2 Sat (%): 97 % (11/09 899) O2 Device: room air (11/09 899) Acute SUPERVISOR OF INSTRUCTION Goals Plan of Care by Shantal Mclean, SUPERVISOR OF INSTRUCTION at 11/09/2024 9:48 AM Version 1 of 1 Problem: SUPERVISOR OF INSTRUCTION - Language Goal: Command Following - Patient will complete 1-step commands with 75% accuracy with no cues in order to improve direction following for functional gains in ability to participate more independently in care Outcome: Ongoing Tx: Addressed receptive language skills via 1-step command following. Pt able to follow 75% of 1-step commands with min cues. Improved to 100% with visual models. Ongoing. Goal: Yes/No Response - Patient will answer yes/no questions related to current situation/environment with 90% accuracy with no cues in order to improve ability to answer questions related to care Outcome: Ongoing Tx: Addressed expressive/receptive communication via fixed yes/no questions. Pt answered 4/8 (50%) of fixed yes/no questions accurately I.e. "are we in the hospital?" Vs "are we at your house?" With pt observed with intermittent perseveration on "yes." Ongoing. Goal: Name Basic Objects/Pictures - Patient will name basic objects/pictures with 75% accuracy, with fading cues in order to improve word-finding and functional communication Outcome: Met Tx: Addressed expressive language via confrontational naming task. Pt demonstrated improvements from prior session naming 8/8 functional items around the room accurately with no cues. Met. Goal: Object Identification by Name - Patient will complete identification tasks to select target item by name in field of 2 in 75% of opportunities with fading cues in order to demonstrate readiness for augmentative and alternative communication. Outcome: Ongoing Tx: When presented with [employer] communication board; pt able to identify 0/5 targets with min cues. Ongoing. Problem: Dysphagia Goal: BRAYDEN- Patient will complete isometric exercises (5 repetitions with a 10-second interval between the sets for a maximum of 2 sets) to improve pharyngeal swallow given fading verbal cues for form and pacing over x3-5 sessions Outcome: Ongoing Goal: Bolus challenge - Patient will accept trials of thin liquids x10-15 trials, given moderate cues for use of strategies to improve bolus control/timing of swallow initiation with no signs of aspiration to determine readiness for repeat study Outcome: Ongoing Tx: Pt observed with increased wet vocal quality the date. SUPERVISOR OF INSTRUCTION provided thorough oral care and pt readily accepted x6 ice chips with intermittent coughing/throat clearing. Ongoing. Goal: Swallow Strategy (Oral)- Patient will utilize trained swallow strategies: multiple swallows, liquid wash during PO trials of puree solids/IDDSI 4 with moderate cues to demonstrate improved oral efficiency and readiness for repeat instrumental. Outcome: Ongoing Patient Education/Instruction Learners: Patient Education provided: Role of this discipline, Plan of care Teaching method: Verbal Education/Instruction Learner response: Needs review Learning preferences: Auditory Learning considerations: Speech expression, Speech comprehension Stroke education: Role of rehabilitation discipline Plan for next session: 11/09: fair; dysphagia/lang tx Speech Language Pathologist: Shantal Mclean SUPERVISOR OF INSTRUCTION Time In: 947 Time Out: 1013 Total Visit Time: 25 minutes Total Treatment Time (skilled, billable minutes): 25 minutes Non-billable assistance during session: n/a Assisted by during session: n/a PPE used during patient interaction: gloves Patient location/status at end of session: bed with head of bed elevated Patient alarms at end of session: none altered Needs in reach. SUPERVISOR OF INSTRUCTION Evaluation and Treatment Time Speech Therapy - Individual 04607: 13 Swallowing Dysfunction Treatment 04074: 12 Upon discontinuation of Acute Care Speech Therapy Services or patient discharge from the hospital this note represents the current Speech Therapy Discharge Summary NUTRITION FOLLOW-UP Nutrition Recommendations and Plan of Care: Continue TF of Osmolite 1.2 at 50 mL/hr. Free water per primary team. Recommend minimum of 30 mL q4 hours x 6 daily to maintain tube patency. Can also consider bolus TF of Osmolite 1.2, 240 mL x 5/day. Monitor TF intake, TF tolerance, GI function, skin integrity, weight changes, and labs. RD to continue to follow. Per HPI, Behzad Hay is a 84 y.o. female with a PMH including Afib on Eliquis, HTN, and HLD who presented from OSH with L thalamic ICH. Nutrition History/Assessment: Pt last assessed by RD 11/02. RD recommended TF of Osmolite 1.2 at 50 mL/hr. Per MAR, TF has continued at goal rate without stoppages in the past week. Pt last seen by SUPERVISOR OF INSTRUCTION this morning with continued recommendations for NPO. Pt seen at bedside this afternoon. Unable to engage in meaningful conversation. No family in room to speak with. Pt speaking about "playing" often throughout visit. Otherwise, no discernable language. No family in room to speak with. TF infusing at goal at time of visit. Nutrition Focused Physical Exam: Nutrition Focused Physical Exam Completed?: deferred Reason For Deferral: pt unable to participate d/t mental status and positioning in bed No evident muscle/fat loss upon visual examination has no known allergies. Current Diet Orders Procedures DIET NPO AND TUBE FEEDING with meds Standing Status: Standing Number of Occurrences: 1 NPO Meds:: with meds Ht: 5' 0" Current Wt: 52.6 kg (116#) Admit Wt: 56.4 kg (124 lb 5.4 oz) IBW: 45.5 kg (100#) %IBW: 116% BMI: 22.7 Weight History: Wt Readings from Last 20 Encounters: 10/19/24 56.4 kg (124 lb 5.4 oz) 10/12/24: 53.5 kg 10/04/24: 51.7 kg 04/26/24: 54 kg 10/27/23: 52.6 kg Weights Since Admit: 11/06: 52.6 kg 10/27: 51.8 kg - bed wt 10/24: 51.6 kg 10/18: 56.4 kg meds reviewed: Scheduled: Reviewed, includes senna (not given recently), amoxicillin oral suspension, free water (30 mL q4 hours) Continuous: Reviewed, includes Osmolite Labs reviewed: Sodium Date Value Ref Range Status 11/09/2024 137 135 - 145 mmol/L Final Potassium Date Value Ref Range Status 11/09/2024 4.5 3.5 - 5.0 mmol/L Final Chloride Date Value Ref Range Status 11/09/2024 101 98 - 108 mmol/L Final CO2 Date Value Ref Range Status 11/09/2024 29 21 - 31 mmol/L Final BUN Date Value Ref Range Status 11/09/2024 32 (H) 7 - 25 mg/dL Final Creatinine Date Value Ref Range Status 11/09/2024 0.76 0.50 - 1.20 mg/dL Final Magnesium Date Value Ref Range Status 10/22/2024 2.2 1.6 - 2.6 mg/dL Final Phosphorous Date Value Ref Range Status 10/19/2024 2.9 2.2 - 4.6 mg/dL Final Albumin Date Value Ref Range Status 10/19/2024 3.9 3.5 - 5.0 g/dL Final Glucose Date Value Ref Range Status 11/09/2024 107 Nonfastin-179 mg/dL; Fastin-99 mg/dL Final Hemoglobin A1C HPLC Date Value Ref Range Status 10/18/2024 5.4 4.7 - 5.6 % Final WBC/Hgb/Hct/Plts: 9.05/12.0/37.7/427 (11/09 224) Lab Results Component Value Date GLUCOSE 107 11/09/2024 GLUCOSE 88 11/06/2024 GLUCOSE 114 11/04/2024 GLUCOSE 115 11/03/2024 GLUCOSE 110 11/01/2024 GLUCOSE 122 11/01/2024 Lab Results Component Value Date HGBA1C 5.4 10/18/2024 GI: Last bm: 11/09 (medium smear) Enteral access: gastric small bore feeding tube Skin: Dani Score: 13 Edema- none documented Active Wounds: none documented Cognitive Status: confused, Ox1, garbled/illogical speech Estimated Nutrition Needs: Weight Used: 52.6 kg (CBW) EEN: 6770-6943 kcal/day (25-30 kcal/kg) EPN: 63-79 g/day (1.2-1.5 g/kg) EFN: 1580 mL/day (30 mL/kg) Malnutrition Statement: Does the patient meet criteria for malnutrition: Unable to assess 2/2 mental status *Based on The Academy and ASPEN Indicators to Diagnose Malnutrition (AAIM) criteria (2012) Fadumo Stark MS, RD, LD, [facility] Pager #[phone] Neurovascular Stroke Service Intracerebral Hemorrhage Note IDENTIFYING INFORMATION Behzad Hay MR# [id number] 11/09/2024 HISTORY OF PRESENT ILLNESS Behzad Hay is a 84 y.o. female with a history of A fib on eliquis (Last dose 10/18 AM), HTN, HLD who presented from [facility] with L thalamic ICH. LKW 2100 10/17. Pt reportedly awoke at 0600 on 10/18 with some R sided weakness and was found by her home health aide at 0900 slumped against the wall with R sided weakness, R facial droop and dysarthria. NIHSS on arrival to [facility] ED 16 (2, 1 commands, 1 L gaze pref, 1 L facial droop, 2 R arm, 2 L leg, 3 R leg, 2 aphasia, 2 dysarthria). CTH at OSH with L thalamic IPH. CTA at OSH with no acute abnormalities . Repeat CTH at [facility] with redemonstration of known L thalamic ICH and remote L MCA territory infarct. BP on arrival 148/76. INTERVAL HISTORY 10/18: Admitted to [facility] for frequent neuro check 10/19: Transfer to [place] service 10/20: drowsy today after receiving Seroquel overnight, repeat CTH stable, increase metoprolol for afib RVR 10/21: improved exam today, SUPERVISOR OF INSTRUCTION re-eval pending, lisinopril increased to home dose 10/22: improved neuro exam however failed FEES, re-eval Monday 10/23: Seroquel/restraints ON for agitation. 10/24: Abd discomfort, urinary retention requiring straight cath 10/25: Held Lisinopril, pending MBS, has required sitter overnight, started on Aspirin today 10/26: A fib RVR last night, UA concerning for UTI, started on Ceftriaxone, started on Cardura for urinary retention, MBS today 10/27: MBS failed. DHT removed last night 2/2 clogging. GI c/s for PEG planning. 10/28: ROSE, complete atbx for UTI, GI recs for PEG planning pending, decrease lisinopril 10/29: self removed DHT this morning, billy mitt restraints applied, increase bowel regimen, hold lisinopril 10/30: Sitter at bedside. No acute events. 10/31: PEG likely next week. KUB in am per GI recs. 11/01: DTH removed/replaced. Tapia for retention/bladder rest. 11/02: Ampicillin for UTI. Sched. Seroquel 11/03: Received extra dose of seroquel at night. Increase night time dose. Urine cultures pending. 11/04: Had an episode of agitation overnight, no extra meds given, restraints changed to soft wrist. 11/05: A fib RVR this morning and hypotensive, total 1 L fluid bolus today, Changed abx to Amoxicillin, stopped morning Seroquel and increased nightly Seroquel dose, updated daughter at bedside 11/06: Has been off restraint since yesterday, continue sitter, awake and cooperative this morning 11/07: Exam stable, calm this morning, has been off sitter, plan to follow up with SUPERVISOR OF INSTRUCTION tomorrow for dysphagia 11/08: FEES planned, will discuss with GI team afterwards. PHYSICAL EXAM Gen: alert, NAD HEENT: normocephalic, no scalp lesions or tenderness, PERRLA, EOMI Neck: trachea midline CV: NSR on monitor Lungs: Respirations unlabored with equal chest rise Abd: soft, nontender, nondistended Extrem: Warm and well perfused, no cyanosis, clubbing, edema Neuro: alert, expressive aphasia, garbled/incoherent with some intermittently clear, follows some simple commands, R hemiparesis CN II visual snyder full to confrontation without visual extinction CN III, IV, PERRL. Gaze midline CN V CN VII R facial droop CN VIII hearing grossly intact to voice CN IX & X Dysarthria/garbled speech CN XI shoulder shrug full strength bilaterally CNXII tongue protrudes midline MOTOR EXAMINATION: R hemiparesis NIHSS Provider NIH Stroke Scale NIH Interval (Provider): daily NIH Level of Conciousness (Provider): 0 NIH LOC Questions (Provider): 2 NIH LOC Commands (Provider): 1 NIH Best Gaze (Provider): 0 NIH Visual (Provider): 0 NIH Facial Palsy (Provider): 1 NIH Left Arm Motor (Provider): 0 NIH Right Arm Motor (Provider): 2 NIH Left Leg Motor (Provider): 0 NIH Right Leg Motor (Provider): 0 NIH Limb Ataxia (Provider): 0 NIH Sensory (Provider): 0 NIH Best Language (Provider): 2 NIH Dysarthria (Provider): 2 NIH Extinction and Inattention (Provider): 0 NIH Total Score (Provider): 10 Intracerebral Hemorrhage Volume ICH Volume Date of Scan: 10/18/24 Time of Scan: 1347 (A) Maximum Length (cm): 1.1 cm (B) Perpendicular Length (cm): 1.8 cm (C) Number of Slices: 3 (C) Slice Thickness (cm) : 0.5 cm ICH Volume (ml) (Calculated Score): 1.49 Intracerebral Hemorrhage Score Intracerebral Hemorrhage (ICH) Scale Paul Coma Scale Points: 1-->GCS 5-12 Age>/=80: 1-->yes Infratentorial Origin of Hemorrhage?: 0-->no ICH Volume >/= 30cm(3): 0-->no (less than 30cm(3)) Intraventricular Hemorrhage?: 0-->no ICH Score (Calculated): 2 Score 30 Day Mortality following ICH 0 0% Mortality 1 13% Mortality 2 26% Mortality 3 72% Mortality 4 97% Mortality 5 100% Mortality ASSESSMENT AND PLAN Neuro: Acute left BG ICH 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 CTA brain/neck: No acute findings 6 hr CTH:Stable exam. Acute left thalamic hemorrhage with mild surrounding vasogenic edema. 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 MRI brain: Left thalamic hemorrhage as noted on October 18, 2024 CT head.Punctate right occipital and left cerebellar acute infarcts. Remote left MCA territory infarct. CTH follow up: Stable left thalamic parenchymal hematoma with mildly increased edema. No significant mass effect TTE: EF 61%, LDL 73, A1c 5.4 Etiology: Likely hypertensive Antiplatelet plan: started Aspirin on 10/25 Anticoagulation plan: Referral for cardiology ordered for Watchman consideration as family/patient had already been considering prior to hemorrhagic stroke. If unable to get watchman, resume home Eliquis in 1 month post stroke (11/18) Blood pressure goal: normotension Hemorrhagic Stroke Core Measures -NCISS on admission 16 -Patient has been started on Mechanical (SCD's) and Pharmacological (SQ heparin) DVT prophylaxis started after stable HCT. -Antiplatelet therapy is not indicated. -Anticoagulation therapy not indicated in hemorrhagic stroke -Patients LDL 73 and HgbA1c 5.4 were checked -Dysphagia screening ordered, and will be completed prior to patient receiving oral intake. -Stroke education booklet has been provided both written and verbal education to the patient and family regarding hemorrhagic strokes. We have reviewed the patient's personal modifiable risk factors including: HTN, on eliquis as well as education on reducing these risk factors. -Patient is being assessed for Rehab by PT/OT/Speech and PM&R if indicated. Essential HTN: Home antihypertensives: lisinopril 10mg BID and metoprolol 25mg BID -Metoprolol 25mg BID - PRN labetalol and hydralazine -Lisinopril discontinued 10/29 due to low BP, resume as indicated UTI: Cultures positive for enterococcus faecalis, continue Amoxicillin (end date: 11/10) Agitation/delirium: -10/29 removed DHT, billy mitts and sitter ordered -DHT removed again 11/01 -11/02: Seroquel scheduled 12.5 mg BID. Increased night dose to 25 mg on 11/03. GI will not place PEG until agitation managed 11/05: Increased nightly Seroquel to 37.5 mg and stopped morning dose 11/07: Has been off restraint since 11/05 and off sitter since 11/06 Acute urinary retention -Started on Cardura on 10/25 evening -Tapia was discontinued HLD -hold home atorvastatin 40mg due to elevated LFTs on admission, downtrended, likely resume at discharge Atrial Fibrillation - On home eliquis 2.5mg BID (LD 10/18 AM) --> held in setting of acute bleed - received Kcentra at OSH - continue metoprolol 25mg BID for rate control - Antiplatelet plan: plan to start Aspirin 81 mg post stroke day #10 (10/27/24) - Anticoagulation plan: Referral for cardiology ordered for Watchman consideration as family/patient had already been considering prior to hemorrhagic stroke. If unable to get watchman, resume home Eliquis in 1 month post stroke (11/18) Dysphagia: 2/2 stroke, FEES on 10/22 and MBS on 10/26 - Continue DHT and TF -11/02: GI deferring PEG until agitation managed. Seroquel scheduled -FEES planned today Elevated LFTs (POA) - elevated on admit, repeat LFTs downtrended Fall Risk: Assessed for patient fall risk and discussed safety measures during rounding. Other problems: Complexity. Wound Documentation Any conditions listed below are present on admission unless otherwise specified. . Disposition: Behzad Hay will likely be discharged to pending medical readiness Reta Galarza APRN-NICO 11/09/2024 12:55 PM VITAL SIGNS Temp: [98.3 F (36.8 C)] 98.3 F (36.8 C) Pulse (Heart Rate): [76-79] 79 Resp Rate: [16-22] 16 BP: (113-114)/(68-74) 114/74 O2 Sat (%): [97 %] 97 % Oxygen Therapy: Oxygen Therapy O2 Sat (%): 97 % O2 Device: room air Intake/Output: Intake/Output Summary (Last 24 hours) at 11/09/2024 1255 Last data filed at 11/09/2024 1217 Gross per 24 hour Intake 1114 ml Output 700 ml Net 414 ml LABS/CULTURES Lab Results Component Value Date WBC 9.05 11/09/2024 HGB 12.0 11/09/2024 HCT 37.7 11/09/2024 PLATELET 427 (H) 11/09/2024 MCV 96.2 11/09/2024 Lab Results Component Value Date SODIUM 137 11/09/2024 POTASSIUM 4.5 11/09/2024 CHLORIDE 101 11/09/2024 CO2 29 11/09/2024 BUN 32 (H) 11/09/2024 CREATSERUM 0.76 11/09/2024 GLUCOSE 107 11/09/2024 Lab Results Component Value Date CHOLESTEROL 140 10/18/2024 TRIG 106 10/18/2024 HDL 46 10/18/2024 LDLCALC 73 10/18/2024 Lab Results Component Value Date HGBA1C 5.4 10/18/2024 Lab Results Component Value Date ALBUMIN 3.9 10/19/2024 , No results found for: "CPK", TROP IMAGING/DIAGNOSTIC STUDIES MEDICATIONS amoxicillin 500 mg Per NG tube Q8H aspirin 81 mg Per NG tube Daily Or aspirin 300 mg Rectal Daily doxazosin 2 mg Per NG tube QHS heparin 5,000 Units Subcutaneous Q8H 0800/1600/2200 Melatonin 6 mg Per NG tube Daily early evening Metoprolol 25 mg Per NG tube Q12H QUEtiapine 37.5 mg Per NG tube QHS Senna 17.2 mg Per NG tube Daily Water liquid (free water) 30 mL Per NG tube Q4H Reta Galarza APRN-AVIATION ELECTRONIC WARFARE OPERATOR 11/09/2024 12:55 PM VITAL SIGNS Temp: [98.3 F (36.8 C)] 98.3 F (36.8 C) Pulse (Heart Rate): [76-79] 79 Resp Rate: [16-22] 16 BP: (113-114)/(68-74) 114/74 O2 Sat (%): [97 %] 97 % IMAGING/DIAGNOSTIC STUDIES MEDICATIONS amoxicillin 500 mg Per NG tube Q8H aspirin 81 mg Per NG tube Daily Or aspirin 300 mg Rectal Daily doxazosin 2 mg Per NG tube QHS heparin 5,000 Units Subcutaneous Q8H 0800/1600/2200 Melatonin 6 mg Per NG tube Daily early evening Metoprolol 25 mg Per NG tube Q12H QUEtiapine 37.5 mg Per NG tube QHS Senna 17.2 mg Per NG tube Daily Water liquid (free water) 30 mL Per NG tube Q4H Cosigned by cL Salazar MD at 11/09/2024 7:39 PM EDT Associated attestation - Lc Salazar MD - 11/09/2024 7:39 PM EDT Attending Physician Note (GC) I interviewed and examined this patient with the SALES DRIVER. I reviewed the history and exam detailed in the note. 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 Workup complete, currently re-evaluating swallow with FEES planned and question of whether a PEG tube is necessary and concordant with the patient's values. Acute Care Speech Language Pathology Treatment Diet Recommendations: Recommended Method of Nutrition: NPO, no oral diet recommended Recommended Medication Administration (as appropriate per MD): Non-Oral Type of Cues/Supervision: 1:1 assistance Assistance: nurse/aide, family Consider ice chips following oral care, given strict 1:1 assistance to assist in secretions clearance and reduce risk of disuse atrophy. *To prevent potential development of aspiration pneumonia/nosocomial infections, RECOMMEND: Oral care routine q4h and HOB upright as tolerated Discharge Recommendations: Based on the below outcome measures/assessment score(s) and SUPERVISOR OF INSTRUCTION clinical judgment, discharge destination recommendation is: Longterm Facility Barriers to discharge home: Need for 1:1 assist to ensure safety with all PO intake, Inability to communicate basic wants/needs Supporting factors for discharge setting: Impaired speech and language skills limiting ability to communicate basic wants/needs, Impaired swallow function limiting nutritional status and safety with oral intake Acute SUPERVISOR OF INSTRUCTION Outcomes Tracking Communicate basic wants and needs?: no Demo insight/appreciation of deficits?: unable to determine Complete basic problem solving?: unable to determine Current therapy frequency recommendation in acute: Speech/Lang/Cog Therapy Frequency: 5 times a week Swallow Therapy Frequency: 5 times a week Clinical Impression: Behzad Hay presents with moderate oropharyngeal dysphagia (per MBS 10/26) s/p acute L thalamic IPH, 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 Pt demonstrated adequate participation/improved alertness compared to prior session. Pt continues to present with intermittent overt s/s of aspiration/penetration with thin liquids however given improved level of alertness/participation and duration since prior instrumental swallow assessment (2 weeks), recommend repeat instrumental swallow assessment to further assess presence/risk of aspiration and inform plan of care. Pt's daughter requested pt have a FEES vs MBS given she reported pt was constipated from the barium from previous MBS. Continue NPO with meds non-oral with allowance of ice chips after oral care in the interim. Subjective information: Pt awake/alert sitting upright in bed with daughter present at bedside. Pain: General Pain Documentation (Adult, OB, Peds) Presence of Pain: not present: non-verbal indicator of pain/discomfort Presence of Pain Score (Auto-calculated): 0 Precautions: Patient Safety Communication Prior to Visit: Nursing Lines/Tubes/Drains (Rehab Status): Nasogastric tube Existing Precautions/Restrictions: fall Respiratory Status: O2 Sat (%): 96 % (11/08 804) Acute SUPERVISOR OF INSTRUCTION Goals Plan of Care by Shantal Mclean, SUPERVISOR OF INSTRUCTION at 11/08/2024 4:23 PM Version 1 of 1 Problem: SUPERVISOR OF INSTRUCTION - Language Goal: Command Following - Patient will complete 1-step commands with 75% accuracy with no cues in order to improve direction following for functional gains in ability to participate more independently in care Outcome: Ongoing Not addressed this date secondary to time constraints Goal: Yes/No Response - Patient will answer yes/no questions related to current situation/environment with 90% accuracy with no cues in order to improve ability to answer questions related to care Outcome: Ongoing Not addressed this date secondary to time constraints Goal: Name Basic Objects/Pictures - Patient will name basic objects/pictures with 75% accuracy, with fading cues in order to improve word-finding and functional communication Outcome: Ongoing Not addressed this date secondary to time constraints Goal: Object Identification by Name - Patient will complete identification tasks to select target item by name in field of 2 in 75% of opportunities with fading cues in order to demonstrate readiness for augmentative and alternative communication. Outcome: Ongoing Not addressed this date secondary to time constraints Problem: Dysphagia Goal: BRAYDEN- Patient will complete isometric exercises (5 repetitions with a 10-second interval between the sets for a maximum of 2 sets) to improve pharyngeal swallow given fading verbal cues for form and pacing over x3-5 sessions Outcome: Ongoing Not addressed this date. Goal: Bolus challenge - Patient will accept trials of thin liquids x10-15 trials, given moderate cues for use of strategies to improve bolus control/timing of swallow initiation with no signs of aspiration to determine readiness for repeat study Outcome: Ongoing Tx: Pt accepted x3 ice chips, x6 tsp sips of thin liquids, and x2 straw sips. Pt demonstrated adequate oral acceptance, observed mastication of ice chips, and pt appeared to swallow all consistencies. Pt observed with cough in x1/6 tsp sips of thin liquids and cough following x2/2 straw sips of thin liquids. Overt signs/symptoms of aspiration present, however given improved level of alertness/participation and duration since prior instrumental swallow assessment (2 weeks), recommend repeat instrumental swallow assessment to further assess presence/risk of aspiration and inform plan of care. Pt's daughter requested pt have a FEES vs MBS given she reported pt was constipated from the barium from her MBS. Goal: Swallow Strategy (Oral)- Patient will utilize trained swallow strategies: multiple swallows, liquid wash during PO trials of puree solids/IDDSI 4 with moderate cues to demonstrate improved oral efficiency and readiness for repeat instrumental. Outcome: Ongoing Tx: Pt accepted x10 bites of puree solid with consistent cues for second swallow. Pt with no overt signs/symptoms of aspiration following bites of puree. Patient Education/Instruction Learners: Patient, Adult Child/Children Education provided: Role of this discipline, Plan of care, Dysphagia recommendations/impressions Teaching method: Verbal Education/Instruction Learner response: Applies knowledge, Needs review (daughter applies knowledge) Learning preferences: Auditory Learning considerations: Speech expression, Speech comprehension Stroke education: Role of rehabilitation discipline Plan for next session: 11/08: good; FEES Speech Language Pathologist: ULISES Leos Time In: 1623 Time Out: 1640 Total Visit Time: 17 minutes Total Treatment Time (skilled, billable minutes): 17 minutes Non-billable assistance during session: n/a Assisted by during session: patient's daughter PPE used during patient interaction: gloves Patient location/status at end of session: bed with head of bed elevated Patient alarms at end of session: none altered Needs in reach. SUPERVISOR OF INSTRUCTION Evaluation and Treatment Time Swallowing Dysfunction Treatment 54214: 17 Upon discontinuation of Acute Care Speech Therapy Services or patient discharge from the hospital this note represents the current Speech Therapy Discharge Summary Neurovascular Stroke Service Intracerebral Hemorrhage Note IDENTIFYING INFORMATION Behzad Hay MR# [id number] 11/07/2024 HISTORY OF PRESENT ILLNESS Behzad Hay is a 84 y.o. female with a history of A fib on eliquis (Last dose 10/18 AM), HTN, HLD who presented from [place] with L thalamic ICH. LKW 2100 10/17. Pt reportedly awoke at 0600 on 10/18 with some R sided weakness and was found by her home health aide at 0900 slumped against the wall with R sided weakness, R facial droop and dysarthria. NIHSS on arrival to [facility] ED 16 (2, 1 commands, 1 L gaze pref, 1 L facial droop, 2 R arm, 2 L leg, 3 R leg, 2 aphasia, 2 dysarthria). CTH at OSH with L thalamic IPH. CTA at OSH with no acute abnormalities . Repeat CTH at [facility] with redemonstration of known L thalamic ICH and remote L MCA territory infarct. BP on arrival 148/76. INTERVAL HISTORY 10/18: Admitted to [facility] for frequent neuro check 10/19: Transfer to [place] service 10/20: drowsy today after receiving Seroquel overnight, repeat CTH stable, increase metoprolol for afib RVR 10/21: improved exam today, SUPERVISOR OF INSTRUCTION re-eval pending, lisinopril increased to home dose 10/22: improved neuro exam however failed FEES, re-eval Monday 10/23: Seroquel/restraints ON for agitation. 10/24: Abd discomfort, urinary retention requiring straight cath 10/25: Held Lisinopril, pending MBS, has required sitter overnight, started on Aspirin today 10/26: A fib RVR last night, UA concerning for UTI, started on Ceftriaxone, started on Cardura for urinary retention, MBS today 10/27: MBS failed. DHT removed last night 2/2 clogging. GI c/s for PEG planning. 10/28: ROSE, complete atbx for UTI, GI recs for PEG planning pending, decrease lisinopril 10/29: self removed DHT this morning, billy mitt restraints applied, increase bowel regimen, hold lisinopril 10/30: Sitter at bedside. No acute events. 10/31: PEG likely next week. KUB in am per GI recs. 11/01: DTH removed/replaced. Tapia for retention/bladder rest. 11/02: Ampicillin for UTI. Sched. Seroquel 11/03: Received extra dose of seroquel at night. Increase night time dose. Urine cultures pending. 11/04: Had an episode of agitation overnight, no extra meds given, restraints changed to soft wrist. 11/05: A fib RVR this morning and hypotensive, total 1 L fluid bolus today, Changed abx to Amoxicillin, stopped morning Seroquel and increased nightly Seroquel dose, updated daughter at bedside 11/06: Has been off restraint since yesterday, continue sitter, awake and cooperative this morning 11/07: Exam stable, calm this morning, has been off sitter, plan to follow up with SUPERVISOR OF INSTRUCTION tomorrow for dysphagia PHYSICAL EXAM Gen: alert, NAD HEENT: normocephalic, no scalp lesions or tenderness, PERRLA, EOMI Neck: trachea midline CV: NSR on monitor Lungs: Respirations unlabored with equal chest rise Abd: soft, nontender, nondistended Extrem: Warm and well perfused, no cyanosis, clubbing, edema Neuro: alert, expressive aphasia, garbled/incoherent with some intermittently clear, follows some simple commands, R hemiparesis CN II visual snyder full to confrontation without visual extinction CN III, IV, PERRL. Gaze midline CN V CN VII R facial droop CN VIII hearing grossly intact to voice CN IX & X Dysarthria/garbled speech CN XI shoulder shrug full strength bilaterally CNXII tongue protrudes midline MOTOR EXAMINATION: R hemiparesis NIHSS Provider NIH Stroke Scale NIH Interval (Provider): daily NIH Level of Conciousness (Provider): 0 NIH LOC Questions (Provider): 2 NIH LOC Commands (Provider): 1 NIH Best Gaze (Provider): 0 NIH Visual (Provider): 0 NIH Facial Palsy (Provider): 1 NIH Left Arm Motor (Provider): 0 NIH Right Arm Motor (Provider): 2 NIH Left Leg Motor (Provider): 0 NIH Right Leg Motor (Provider): 0 NIH Limb Ataxia (Provider): 0 NIH Sensory (Provider): 0 NIH Best Language (Provider): 2 NIH Dysarthria (Provider): 2 NIH Extinction and Inattention (Provider): 0 NIH Total Score (Provider): 10 Intracerebral Hemorrhage Volume ICH Volume Date of Scan: 10/18/24 Time of Scan: 1347 (A) Maximum Length (cm): 1.1 cm (B) Perpendicular Length (cm): 1.8 cm (C) Number of Slices: 3 (C) Slice Thickness (cm) : 0.5 cm ICH Volume (ml) (Calculated Score): 1.49 Intracerebral Hemorrhage Score Intracerebral Hemorrhage (ICH) Scale [place] Coma Scale Points: 1-->GCS 5-12 Age>/=80: 1-->yes Infratentorial Origin of Hemorrhage?: 0-->no ICH Volume >/= 30cm(3): 0-->no (less than 30cm(3)) Intraventricular Hemorrhage?: 0-->no ICH Score (Calculated): 2 Score 30 Day Mortality following ICH 0 0% Mortality 1 13% Mortality 2 26% Mortality 3 72% Mortality 4 97% Mortality 5 100% Mortality ASSESSMENT AND PLAN Neuro: Acute left BG ICH 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 CTA brain/neck: No acute findings 6 hr CTH:Stable exam. Acute left thalamic hemorrhage with mild surrounding vasogenic edema. 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 MRI brain: Left thalamic hemorrhage as noted on October 18, 2024 CT head.Punctate right occipital and left cerebellar acute infarcts. Remote left MCA territory infarct. CTH follow up: Stable left thalamic parenchymal hematoma with mildly increased edema. No significant mass effect TTE: EF 61%, LDL 73, A1c 5.4 Etiology: Likely hypertensive Antiplatelet plan: started Aspirin on 10/25 Anticoagulation plan: Referral for cardiology ordered for Watchman consideration as family/patient had already been considering prior to hemorrhagic stroke. If unable to get watchman, resume home Eliquis in 1 month post stroke (11/18) Blood pressure goal: normotension Hemorrhagic Stroke Core Measures -NHISS on admission 16 -Patient has been started on Mechanical (SCD's) and Pharmacological (SQ heparin) DVT prophylaxis started after stable HCT. -Antiplatelet therapy is not indicated. -Anticoagulation therapy not indicated in hemorrhagic stroke -Patients LDL 73 and HgbA1c 5.4 were checked -Dysphagia screening ordered, and will be completed prior to patient receiving oral intake. -Stroke education booklet has been provided both written and verbal education to the patient and family regarding hemorrhagic strokes. We have reviewed the patient's personal modifiable risk factors including: HTN, on eliquis as well as education on reducing these risk factors. -Patient is being assessed for Rehab by PT/OT/Speech and PM&R if indicated. Essential HTN: Home antihypertensives: lisinopril 10mg BID and metoprolol 25mg BID -Metoprolol 25mg BID - PRN labetalol and hydralazine -Lisinopril discontinued 10/29 due to low BP, resume as indicated UTI: UA dirty on 10/26, completed Ceftriaxone for 3 days (end date: 10/28) -UA with bacteria 11/02: Started Ampicillin -Cultures positive for enterococcus faecalis, continue Amoxicillin (end date: 11/10) Agitation/delirium: -10/29 removed DHT, billy mitts and sitter ordered -DHT removed again 11/01 -11/02: Seroquel scheduled 12.5 mg BID. Increased night dose to 25 mg on 11/03. GI will not place PEG until agitation managed 11/05: Increased nightly Seroquel to 37.5 mg and stopped morning dose 11/07: Has been off restraint since 11/05 and off sitter since 11/06 Acute urinary retention -Started on Cardura on 10/25 evening -Tapia placed 11/01 for retention/bladder rest -Attempt void trials tomorrow on 11/04 HLD -hold home atorvastatin 40mg due to elevated LFTs on admission, downtrended, likely resume at discharge Atrial Fibrillation - On home eliquis 2.5mg BID (LD 10/18 AM) --> held in setting of acute bleed - received Jonathan at OSH - continue metoprolol 25mg BID for rate control - Antiplatelet plan: plan to start Aspirin 81 mg post stroke day #10 (10/27/24) - Anticoagulation plan: Referral for cardiology ordered for Watchman consideration as family/patient had already been considering prior to hemorrhagic stroke. If unable to get watchman, resume home Eliquis in 1 month post stroke (11/18) Dysphagia: 2/2 stroke, FEES on 10/22 and MBS on 10/26 - Continue DHT and TF -11/02: GI deferring PEG until agitation managed. Seroquel scheduled Elevated LFTs (POA) - elevated on admit, repeat LFTs downtrended Fall Risk: Assessed for patient fall risk and discussed safety measures during rounding. Other problems: Complexity. Wound Documentation Any conditions listed below are present on admission unless otherwise specified. . Disposition: Behzad Hay will likely be discharged to pending medical readiness Ailyn Mullen, [employer] OPERATOR 11/07/2024 11:43 AM VITAL SIGNS Temp: [97.8 F (36.6 C)-98.7 F (37.1 C)] 97.9 F (36.6 C) Pulse (Heart Rate): [63-83] 67 Resp Rate: [18-23] 18 BP: (114-145)/(56-72) 133/65 O2 Sat (%): [97 %-99 %] 97 % Oxygen Therapy: Oxygen Therapy O2 Sat (%): 97 % O2 Device: room air Flow (L/min): 0 Intake/Output: Intake/Output Summary (Last 24 hours) at 11/07/2024 1143 Last data filed at 11/07/2024 0913 Gross per 24 hour Intake 2127 ml Output 2075 ml Net 52 ml LABS/CULTURES Lab Results Component Value Date WBC 7.38 11/06/2024 HGB 12.0 11/06/2024 HCT 37.5 11/06/2024 PLATELET 408 (H) 11/06/2024 MCV 95.7 11/06/2024 Lab Results Component Value Date SODIUM 136 11/06/2024 POTASSIUM 5.0 11/06/2024 CHLORIDE 104 11/06/2024 CO2 25 11/06/2024 BUN 25 11/06/2024 CREATSERUM 0.91 11/06/2024 GLUCOSE 88 11/06/2024 Lab Results Component Value Date CHOLESTEROL 140 10/18/2024 TRIG 106 10/18/2024 HDL 46 10/18/2024 LDLCALC 73 10/18/2024 Lab Results Component Value Date HGBA1C 5.4 10/18/2024 Lab Results Component Value Date ALBUMIN 3.9 10/19/2024 , No results found for: "CPK", TROP IMAGING/DIAGNOSTIC STUDIES MEDICATIONS amoxicillin 500 mg Per NG tube Q8H aspirin 81 mg Oral Daily Or aspirin 300 mg Rectal Daily doxazosin 2 mg Per NG tube QHS heparin 5,000 Units Subcutaneous Q8H 0800/1600/2200 Melatonin 6 mg Per NG tube Daily early evening Metoprolol 25 mg Per NG tube Q12H QUEtiapine 37.5 mg Per NG tube QHS Senna 17.2 mg Per NG tube Daily Water liquid (free water) 30 mL Per NG tube Q4H REID Gasca 11/07/2024 11:43 AM VITAL SIGNS Temp: [97.8 F (36.6 C)-98.7 F (37.1 C)] 97.9 F (36.6 C) Pulse (Heart Rate): [63-83] 67 Resp Rate: [18-23] 18 BP: (114-145)/(56-72) 133/65 O2 Sat (%): [97 %-99 %] 97 % IMAGING/DIAGNOSTIC STUDIES MEDICATIONS amoxicillin 500 mg Per NG tube Q8H aspirin 81 mg Oral Daily Or aspirin 300 mg Rectal Daily doxazosin 2 mg Per NG tube QHS heparin 5,000 Units Subcutaneous Q8H 0800/1600/2200 Melatonin 6 mg Per NG tube Daily early evening Metoprolol 25 mg Per NG tube Q12H QUEtiapine 37.5 mg Per NG tube QHS Senna 17.2 mg Per NG tube Daily Water liquid (free water) 30 mL Per NG tube Q4H Cosigned by Ousmane Cantu DO at 11/07/2024 3:46 PM EDT Neurovascular Stroke Service Intracerebral Hemorrhage Note IDENTIFYING INFORMATION Behzad Hay MR# [id number] 11/06/2024 HISTORY OF PRESENT ILLNESS Behzad Hay is a 84 y.o. female with a history of A fib on eliquis (Last dose 10/18 AM), HTN, HLD who presented from [place] with L thalamic ICH. LKW 2100 10/17. Pt reportedly awoke at 0600 on 10/18 with some R sided weakness and was found by her home health aide at 0900 slumped against the wall with R sided weakness, R facial droop and dysarthria. NIHSS on arrival to [facility] ED 16 (2, 1 commands, 1 L gaze pref, 1 L facial droop, 2 R arm, 2 L leg, 3 R leg, 2 aphasia, 2 dysarthria). CTH at OSH with L thalamic IPH. CTA at OSH with no acute abnormalities . Repeat CTH at [facility] with redemonstration of known L thalamic ICH and remote L MCA territory infarct. BP on arrival 148/76. INTERVAL HISTORY 10/18: Admitted to [facility] for frequent neuro check 10/19: Transfer to [place] service 10/20: drowsy today after receiving Seroquel overnight, repeat CTH stable, increase metoprolol for afib RVR 10/21: improved exam today, SUPERVISOR OF INSTRUCTION re-eval pending, lisinopril increased to home dose 10/22: improved neuro exam however failed FEES, re-eval Monday 10/23: Seroquel/restraints ON for agitation. 10/24: Abd discomfort, urinary retention requiring straight cath 10/25: Held Lisinopril, pending MBS, has required sitter overnight, started on Aspirin today 10/26: A fib RVR last night, UA concerning for UTI, started on Ceftriaxone, started on Cardura for urinary retention, MBS today 10/27: MBS failed. DHT removed last night 2/2 clogging. GI c/s for PEG planning. 10/28: ROSE, complete atbx for UTI, GI recs for PEG planning pending, decrease lisinopril 10/29: self removed DHT this morning, billy mitt restraints applied, increase bowel regimen, hold lisinopril 10/30: Sitter at bedside. No acute events. 10/31: PEG likely next week. KUB in am per GI recs. 11/01: DTH removed/replaced. Tapia for retention/bladder rest. 11/02: Ampicillin for UTI. Sched. Seroquel 11/03: Received extra dose of seroquel at night. Increase night time dose. Urine cultures pending. 11/04: Had an episode of agitation overnight, no extra meds given, restraints changed to soft wrist. 11/05: A fib RVR this morning and hypotensive, total 1 L fluid bolus today, Changed abx to Amoxicillin, stopped morning Seroquel and increased nightly Seroquel dose, updated daughter at bedside 11/06: Has been off restraint since yesterday, continue sitter, awake and cooperative this morning PHYSICAL EXAM Gen: alert, NAD HEENT: normocephalic, no scalp lesions or tenderness, PERRLA, EOMI Neck: trachea midline CV: NSR on monitor Lungs: Respirations unlabored with equal chest rise Abd: soft, nontender, nondistended Extrem: Warm and well perfused, no cyanosis, clubbing, edema Neuro: alert, expressive aphasia, garbled/incoherent with some intermittently clear, follows some simple commands, R hemiparesis CN II visual snyder full to confrontation without visual extinction CN III, IV, PERRL. Gaze midline CN V CN VII R facial droop CN VIII hearing grossly intact to voice CN IX & X Dysarthria/garbled speech CN XI shoulder shrug full strength bilaterally CNXII tongue protrudes midline MOTOR EXAMINATION: R hemiparesis NIHSS Provider NIH Stroke Scale NIH Interval (Provider): daily NIH Level of Conciousness (Provider): 0 NIH LOC Questions (Provider): 2 NIH LOC Commands (Provider): 1 NIH Best Gaze (Provider): 0 NIH Visual (Provider): 0 NIH Facial Palsy (Provider): 1 NIH Left Arm Motor (Provider): 0 NIH Right Arm Motor (Provider): 2 NIH Left Leg Motor (Provider): 0 NIH Right Leg Motor (Provider): 0 NIH Limb Ataxia (Provider): 0 NIH Sensory (Provider): 0 NIH Best Language (Provider): 2 NIH Dysarthria (Provider): 2 NIH Extinction and Inattention (Provider): 0 NIH Total Score (Provider): 10 Intracerebral Hemorrhage Volume ICH Volume Date of Scan: 10/18/24 Time of Scan: 1347 (A) Maximum Length (cm): 1.1 cm (B) Perpendicular Length (cm): 1.8 cm (C) Number of Slices: 3 (C) Slice Thickness (cm) : 0.5 cm ICH Volume (ml) (Calculated Score): 1.49 Intracerebral Hemorrhage Score Intracerebral Hemorrhage (ICH) Scale [place] Coma Scale Points: 1-->GCS 5-12 Age>/=80: 1-->yes Infratentorial Origin of Hemorrhage?: 0-->no ICH Volume >/= 30cm(3): 0-->no (less than 30cm(3)) Intraventricular Hemorrhage?: 0-->no ICH Score (Calculated): 2 Score 30 Day Mortality following ICH 0 0% Mortality 1 13% Mortality 2 26% Mortality 3 72% Mortality 4 97% Mortality 5 100% Mortality ASSESSMENT AND PLAN Neuro: Acute left BG ICH 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 CTA brain/neck: No acute findings 6 hr CTH:Stable exam. Acute left thalamic hemorrhage with mild surrounding vasogenic edema. 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 MRI brain: Left thalamic hemorrhage as noted on October 18, 2024 CT head.Punctate right occipital and left cerebellar acute infarcts. Remote left MCA territory infarct. CTH follow up: Stable left thalamic parenchymal hematoma with mildly increased edema. No significant mass effect TTE: EF 61%, LDL 73, A1c 5.4 Etiology: Likely hypertensive Antiplatelet plan: started Aspirin on 10/25 Anticoagulation plan: Referral for cardiology ordered for Watchman consideration as family/patient had already been considering prior to hemorrhagic stroke. If unable to get watchman, resume home Eliquis in 1 month post stroke (11/18) Blood pressure goal: normotension Hemorrhagic Stroke Core Measures -NHISS on admission 16 -Patient has been started on Mechanical (SCD's) and Pharmacological (SQ heparin) DVT prophylaxis started after stable HCT. -Antiplatelet therapy is not indicated. -Anticoagulation therapy not indicated in hemorrhagic stroke -Patients LDL 73 and HgbA1c 5.4 were checked -Dysphagia screening ordered, and will be completed prior to patient receiving oral intake. -Stroke education booklet has been provided both written and verbal education to the patient and family regarding hemorrhagic strokes. We have reviewed the patient's personal modifiable risk factors including: HTN, on eliquis as well as education on reducing these risk factors. -Patient is being assessed for Rehab by PT/OT/Speech and PM&R if indicated. Essential HTN: Home antihypertensives: lisinopril 10mg BID and metoprolol 25mg BID -Metoprolol 25mg BID - PRN labetalol and hydralazine -Lisinopril discontinued 10/29 due to low BP, resume as indicated UTI: UA dirty on 10/26, completed Ceftriaxone for 3 days (end date: 10/28) -UA with bacteria 11/02: Started Ampicillin -Cultures positive for enterococcus faecalis, continue Amoxicillin (end date: 11/10) Agitation/delirium: -10/29 removed DHT, billy mitts and sitter ordered -DHT removed again 11/01 -11/02: Seroquel scheduled 12.5 mg BID. Increased night dose to 25 mg on 11/03. GI will not place PEG until agitation managed 11/05: Increased nightly Seroquel to 7.5 mg and stopped morning dose Acute urinary retention -Started on Cardura on 10/25 evening -Tapia placed 11/01 for retention/bladder rest -Attempt void trials tomorrow on 11/04 HLD -hold home atorvastatin 40mg due to elevated LFTs on admission, downtrended, likely resume at discharge Atrial Fibrillation - On home eliquis 2.5mg BID (LD 10/18 AM) --> held in setting of acute bleed - received Kcentra at OSH - continue metoprolol 25mg BID for rate control - Antiplatelet plan: plan to start Aspirin 81 mg post stroke day #10 (10/27/24) - Anticoagulation plan: Referral for cardiology ordered for Watchman consideration as family/patient had already been considering prior to hemorrhagic stroke. If unable to get watchman, resume home Eliquis in 1 month post stroke (11/18) Dysphagia: 2/2 stroke, FEES on 10/22 and MBS on 10/26 - Continue DHT and TF -11/02: GI deferring PEG until agitation managed. Seroquel scheduled Elevated LFTs (POA) - elevated on admit, repeat LFTs downtrended Fall Risk: Assessed for patient fall risk and discussed safety measures during rounding. Other problems: Complexity. Wound Documentation Any conditions listed below are present on admission unless otherwise specified. . Disposition: Behzad Hay will likely be discharged to pending medical readiness Ailyn Mullen APRN-NICO 11/06/2024 11:20 AM VITAL SIGNS Temp: [98.2 F (36.8 C)-98.7 F (37.1 C)] 98.2 F (36.8 C) Pulse (Heart Rate): [72-97] 76 Resp Rate: [13-20] 20 BP: (81-128)/(51-73) 125/62 O2 Sat (%): [90 %-100 %] 99 % Weight: [52.6 kg (116 lb)] 52.6 kg (116 lb) Oxygen Therapy: Oxygen Therapy O2 Sat (%): 99 % O2 Device: room air Flow (L/min): 0 Intake/Output: Intake/Output Summary (Last 24 hours) at 11/06/2024 1120 Last data filed at 11/06/2024 1000 Gross per 24 hour Intake 2045 ml Output 2805 ml Net -760 ml LABS/CULTURES Lab Results Component Value Date WBC 7.38 11/06/2024 HGB 12.0 11/06/2024 HCT 37.5 11/06/2024 PLATELET 408 (H) 11/06/2024 MCV 95.7 11/06/2024 Lab Results Component Value Date SODIUM 136 11/06/2024 POTASSIUM 5.0 11/06/2024 CHLORIDE 104 11/06/2024 CO2 25 11/06/2024 BUN 25 11/06/2024 CREATSERUM 0.91 11/06/2024 GLUCOSE 88 11/06/2024 Lab Results Component Value Date CHOLESTEROL 140 10/18/2024 TRIG 106 10/18/2024 HDL 46 10/18/2024 LDLCALC 73 10/18/2024 Lab Results Component Value Date HGBA1C 5.4 10/18/2024 Lab Results Component Value Date ALBUMIN 3.9 10/19/2024 , No results found for: "CPK", TROP IMAGING/DIAGNOSTIC STUDIES MEDICATIONS amoxicillin 500 mg Per NG tube Q8H aspirin 81 mg Oral Daily Or aspirin 300 mg Rectal Daily doxazosin 2 mg Per NG tube QHS heparin 5,000 Units Subcutaneous Q8H 0800/1600/2200 Melatonin 6 mg Per NG tube Daily early evening Metoprolol 25 mg Per NG tube Q12H QUEtiapine 37.5 mg Per NG tube QHS Senna 17.2 mg Per NG tube Daily Water liquid (free water) 30 mL Per NG tube Q4H REID Gasca 11/06/2024 11:20 AM VITAL SIGNS Temp: [98.2 F (36.8 C)-98.7 F (37.1 C)] 98.2 F (36.8 C) Pulse (Heart Rate): [72-97] 76 Resp Rate: [13-20] 20 BP: (81-128)/(51-73) 125/62 O2 Sat (%): [90 %-100 %] 99 % Weight: [52.6 kg (116 lb)] 52.6 kg (116 lb) IMAGING/DIAGNOSTIC STUDIES MEDICATIONS amoxicillin 500 mg Per NG tube Q8H aspirin 81 mg Oral Daily Or aspirin 300 mg Rectal Daily doxazosin 2 mg Per NG tube QHS heparin 5,000 Units Subcutaneous Q8H 0800/1600/2200 Melatonin 6 mg Per NG tube Daily early evening Metoprolol 25 mg Per NG tube Q12H QUEtiapine 37.5 mg Per NG tube QHS Senna 17.2 mg Per NG tube Daily Water liquid (free water) 30 mL Per NG tube Q4H Cosigned by Ousmane Cantu DO at 11/07/2024 3:46 PM EDT Placement Plan Expected Discharge Date: TBD Referred Level of Care: SNF Barriers: Peg Tube placement - Insurance pre-certification Current Referrals and Status [facility] - Available (pending Peg Tube) [facility] - Under Review [facility] - Under Review 1st choice would be [facility] and 2nd choice [facility] operated [facility] uploaded current clinical for SNFs to follow. PAM Fleming, MECHANICAL PRODUCT DESIGN ENGINEER Communication Consultant Available by Secure Chat Neurovascular Stroke Service Intracerebral Hemorrhage Note IDENTIFYING INFORMATION Behzad Hay MR# [id number] 11/05/2024 HISTORY OF PRESENT ILLNESS Behzad Hay is a 84 y.o. female with a history of A fib on eliquis (Last dose 10/18 AM), HTN, HLD who presented from [place] with L thalamic ICH. LKW 2100 10/17. Pt reportedly awoke at 0600 on 10/18 with some R sided weakness and was found by her home health aide at 0900 slumped against the wall with R sided weakness, R facial droop and dysarthria. NIHSS on arrival to [facility] ED 16 (2, 1 commands, 1 L gaze pref, 1 L facial droop, 2 R arm, 2 L leg, 3 R leg, 2 aphasia, 2 dysarthria). CTH at OSH with L thalamic IPH. CTA at OSH with no acute abnormalities . Repeat CTH at [facility] with redemonstration of known L thalamic ICH and remote L MCA territory infarct. BP on arrival 148/76. INTERVAL HISTORY 10/18: Admitted to [facility] for frequent neuro check 10/19: Transfer to [place] service 10/20: drowsy today after receiving Seroquel overnight, repeat CTH stable, increase metoprolol for afib RVR 10/21: improved exam today, SUPERVISOR OF INSTRUCTION re-eval pending, lisinopril increased to home dose 10/22: improved neuro exam however failed FEES, re-eval Monday 10/23: Seroquel/restraints ON for agitation. 10/24: Abd discomfort, urinary retention requiring straight cath 10/25: Held Lisinopril, pending MBS, has required sitter overnight, started on Aspirin today 10/26: A fib RVR last night, UA concerning for UTI, started on Ceftriaxone, started on Cardura for urinary retention, MBS today 10/27: MBS failed. DHT removed last night 2/2 clogging. GI c/s for PEG planning. 10/28: ROSE, complete atbx for UTI, GI recs for PEG planning pending, decrease lisinopril 10/29: self removed DHT this morning, billy mitt restraints applied, increase bowel regimen, hold lisinopril 10/30: Sitter at bedside. No acute events. 10/31: PEG likely next week. KUB in am per GI recs. 11/01: DTH removed/replaced. Tapia for retention/bladder rest. 11/02: Ampicillin for UTI. Sched. Seroquel 11/03: Received extra dose of seroquel at night. Increase night time dose. Urine cultures pending. 11/04: Had an episode of agitation overnight, no extra meds given, restraints changed to soft wrist. 11/05: A fib RVR this morning and hypotensive, total 1 L fluid bolus today, Changed abx to Amoxicillin, stopped morning Seroquel and increased nightly Seroquel dose, updated daughter at bedside PHYSICAL EXAM Gen: alert, NAD HEENT: normocephalic, no scalp lesions or tenderness, PERRLA, EOMI Neck: trachea midline CV: NSR on monitor Lungs: Respirations unlabored with equal chest rise Abd: soft, nontender, nondistended Extrem: Warm and well perfused, no cyanosis, clubbing, edema Neuro: alert, expressive aphasia, garbled/incoherent with some intermittently clear, follows some simple commands, R hemiparesis CN II visual snyder full to confrontation without visual extinction CN III, IV, PERRL. Gaze midline CN V CN VII R facial droop CN VIII hearing grossly intact to voice CN IX & X Dysarthria/garbled speech CN XI shoulder shrug full strength bilaterally CNXII tongue protrudes midline MOTOR EXAMINATION: R hemiparesis NIHSS Provider NIH Stroke Scale NIH Interval (Provider): daily NIH Level of Conciousness (Provider): 0 NIH LOC Questions (Provider): 2 NIH LOC Commands (Provider): 1 NIH Best Gaze (Provider): 0 NIH Visual (Provider): 0 NIH Facial Palsy (Provider): 1 NIH Left Arm Motor (Provider): 0 NIH Right Arm Motor (Provider): 2 NIH Left Leg Motor (Provider): 0 NIH Right Leg Motor (Provider): 0 NIH Limb Ataxia (Provider): 0 NIH Sensory (Provider): 0 NIH Best Language (Provider): 2 NIH Dysarthria (Provider): 2 NIH Extinction and Inattention (Provider): 0 NIH Total Score (Provider): 10 Intracerebral Hemorrhage Volume ICH Volume Date of Scan: 10/18/24 Time of Scan: 1347 (A) Maximum Length (cm): 1.1 cm (B) Perpendicular Length (cm): 1.8 cm (C) Number of Slices: 3 (C) Slice Thickness (cm) : 0.5 cm ICH Volume (ml) (Calculated Score): 1.49 Intracerebral Hemorrhage Score Intracerebral Hemorrhage (ICH) Scale [place] Coma Scale Points: 1-->GCS 5-12 Age>/=80: 1-->yes Infratentorial Origin of Hemorrhage?: 0-->no ICH Volume >/= 30cm(3): 0-->no (less than 30cm(3)) Intraventricular Hemorrhage?: 0-->no ICH Score (Calculated): 2 Score 30 Day Mortality following ICH 0 0% Mortality 1 13% Mortality 2 26% Mortality 3 72% Mortality 4 97% Mortality 5 100% Mortality ASSESSMENT AND PLAN Neuro: Acute left BG ICH 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 CTA brain/neck: No acute findings 6 hr CTH:Stable exam. Acute left thalamic hemorrhage with mild surrounding vasogenic edema. 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 MRI brain: Left thalamic hemorrhage as noted on October 18, 2024 CT head.Punctate right occipital and left cerebellar acute infarcts. Remote left MCA territory infarct. CTH follow up: Stable left thalamic parenchymal hematoma with mildly increased edema. No significant mass effect TTE: EF 61%, LDL 73, A1c 5.4 Etiology: Likely hypertensive Antiplatelet plan: started Aspirin on 10/25 Anticoagulation plan: Referral for cardiology ordered for Watchman consideration as family/patient had already been considering prior to hemorrhagic stroke. If unable to get watchman, resume home Eliquis in 1 month post stroke (11/18) Blood pressure goal: normotension Hemorrhagic Stroke Core Measures -NHISS on admission 16 -Patient has been started on Mechanical (SCD's) and Pharmacological (SQ heparin) DVT prophylaxis started after stable HCT. -Antiplatelet therapy is not indicated. -Anticoagulation therapy not indicated in hemorrhagic stroke -Patients LDL 73 and HgbA1c 5.4 were checked -Dysphagia screening ordered, and will be completed prior to patient receiving oral intake. -Stroke education booklet has been provided both written and verbal education to the patient and family regarding hemorrhagic strokes. We have reviewed the patient's personal modifiable risk factors including: HTN, on eliquis as well as education on reducing these risk factors. -Patient is being assessed for Rehab by PT/OT/Speech and PM&R if indicated. Essential HTN: Home antihypertensives: lisinopril 10mg BID and metoprolol 25mg BID -Metoprolol 25mg BID - PRN labetalol and hydralazine -Lisinopril discontinued 10/29 due to low BP, resume as indicated UTI: UA dirty on 10/26, completed Ceftriaxone for 3 days (end date: 10/28) -UA with bacteria 11/02: Started Ampicillin -Cultures positive for enterococcus faecalis, continue Amoxicillin (end date: 11/10) Agitation/delirium: -10/29 removed DHT, billy mitts and sitter ordered -DHT removed again 11/01 -11/02: Seroquel scheduled 12.5 mg BID. Increased night dose to 25 mg on 11/03. GI will not place PEG until agitation managed 11/05: Increased nightly Seroquel to 7.5 mg and stopped morning dose Acute urinary retention -Started on Cardura on 10/25 evening -Tapia placed 11/01 for retention/bladder rest -Attempt void trials tomorrow on 11/04 HLD -hold home atorvastatin 40mg due to elevated LFTs on admission, downtrended, likely resume at discharge Atrial Fibrillation - On home eliquis 2.5mg BID (LD 7 AM) --> held in setting of acute bleed - received Kcentra at OSH - continue metoprolol 25mg BID for rate control - Antiplatelet plan: plan to start Aspirin 81 mg post stroke day #10 (10/27/24) - Anticoagulation plan: Referral for cardiology ordered for Watchman consideration as family/patient had already been considering prior to hemorrhagic stroke. If unable to get watchman, resume home Eliquis in 1 month post stroke (11/18) Dysphagia: 2/2 stroke, FEES on 10/22 and MBS on 10/26 - Continue DHT and TF -11/02: GI deferring PEG until agitation managed. Seroquel scheduled Elevated LFTs (POA) - elevated on admit, repeat LFTs downtrended Fall Risk: Assessed for patient fall risk and discussed safety measures during rounding. Other problems: Complexity. Wound Documentation Any conditions listed below are present on admission unless otherwise specified. . Disposition: Behzad Hay will likely be discharged to pending medical readiness Ailyn Mullen, COMMUNITY RELATIONS OFFICER-AVIATION ELECTRONIC WARFARE OPERATOR 11/05/2024 3:16 PM VITAL SIGNS Temp: [97.6 F (36.4 C)-98.4 F (36.9 C)] 98.1 F (36.7 C) Pulse (Heart Rate): [73-116] 78 Resp Rate: [12-24] 14 BP: (81-171)/(50-76) 96/55 O2 Sat (%): [90 %-100 %] 90 % Oxygen Therapy: Oxygen Therapy O2 Sat (%): 90 % O2 Device: room air Intake/Output: Intake/Output Summary (Last 24 hours) at 11/05/2024 1516 Last data filed at 11/05/2024 1448 Gross per 24 hour Intake 2349 ml Output 1675 ml Net 674 ml LABS/CULTURES Lab Results Component Value Date WBC 8.21 11/04/2024 HGB 11.8 11/04/2024 HCT 37.5 11/04/2024 PLATELET 478 (H) 11/04/2024 MCV 96.6 11/04/2024 Lab Results Component Value Date SODIUM 138 11/04/2024 POTASSIUM 4.3 11/04/2024 CHLORIDE 101 11/04/2024 CO2 27 11/04/2024 BUN 25 11/04/2024 CREATSERUM 0.80 11/04/2024 GLUCOSE 114 11/04/2024 Lab Results Component Value Date CHOLESTEROL 140 10/18/2024 TRIG 106 10/18/2024 HDL 46 10/18/2024 LDLCALC 73 10/18/2024 Lab Results Component Value Date HGBA1C 5.4 10/18/2024 Lab Results Component Value Date ALBUMIN 3.9 10/19/2024 , No results found for: "CPK", TROP IMAGING/DIAGNOSTIC STUDIES MEDICATIONS Amoxicillin 500 mg Oral Q8H aspirin 81 mg Oral Daily Or aspirin 300 mg Rectal Daily doxazosin 2 mg Per NG tube QHS heparin 5,000 Units Subcutaneous Q8H 0800/1600/2200 Melatonin 6 mg Per NG tube Daily early evening Metoprolol 25 mg Per NG tube Q12H QUEtiapine 37.5 mg Per NG tube QHS Senna 17.2 mg Per NG tube Daily Water liquid (free water) 30 mL Per NG tube Q4H REID Gasca 11/05/2024 3:16 PM VITAL SIGNS Temp: [97.6 F (36.4 C)-98.4 F (36.9 C)] 98.1 F (36.7 C) Pulse (Heart Rate): [73-116] 78 Resp Rate: [12-24] 14 BP: (81-171)/(50-76) 96/55 O2 Sat (%): [90 %-100 %] 90 % IMAGING/DIAGNOSTIC STUDIES MEDICATIONS Amoxicillin 500 mg Oral Q8H aspirin 81 mg Oral Daily Or aspirin 300 mg Rectal Daily doxazosin 2 mg Per NG tube QHS heparin 5,000 Units Subcutaneous Q8H 0800/1600/2200 Melatonin 6 mg Per NG tube Daily early evening Metoprolol 25 mg Per NG tube Q12H QUEtiapine 37.5 mg Per NG tube QHS Senna 17.2 mg Per NG tube Daily Water liquid (free water) 30 mL Per NG tube Q4H Cosigned by Ousmnae Cantu DO at 11/05/2024 5:43 PM EDT Associated attestation - Ousmane Cantu DO - 11/05/2024 5:43 PM EDT I saw and independently examined the patient on 11/05/2024. I agree with the history, examination, and medical decision making as outlined. In addition, please see below. 84F w/ afib on eliquis. 10/18/24 awoke w/ R weakness. CTH/MRI w/ L thalamic ICH. CTA neg. TTE normal. LDL 73, A1c 5.4%. Exam: Awake but agitated and encephalopathic, makes few coherent words. RUE can lift against gravity. Other extremities intact. DOAC-related ICH. Hospital stay c/b delirium. Plan: Dysphagia and delirium - switch seroquel to 37.5 at bedtime, no am dose. Suspect source of agitation is dobhoff tube however GI declining PEG due to agitation. Will control agitation so she can get PEG. Will wean sitter and mitts after NG out. UTI - amoxicillin 7 days (stop 11/10). Aspirin 81 for now, family interested in pursuing watchman as an outpatient. Dispo - SNF pending PEG placement. Ousmane Cantu D.O. Vascular Neurology [facility] Acute Physical Therapy Treatment Prior Gross Functional Mobility: needs assist Current AM-PAC score(s): CURRENT AM-PAC Mobility Raw Score: 7 Based on the above AM-PAC score(s) and PT clinical judgment, patient is a good candidate for discharge to Longterm Facility Barriers to discharge home: Patient needs assistance with functional mobility Mobility equipment available at home: ADL equipment available at home: shower chair, grab bars Equipment needed for discharge: to be determined Current therapy frequency recommendation in acute: PT Therapy Frequency: 5 times a week Precautions and Weightbearing Status: Existing Precautions/Restrictions: fall Patient Safety Communication Prior to Visit: Nursing Subjective: pt was agreeable to participate, alert Pain: General Pain Documentation (Adult, OB, Peds) Presence of Pain: denies pain/discomfort Presence of Pain Score (Auto-calculated): 0 Objective/Observation: Vitals/Vitals Responses to Treatment: WFL O2 Device: room air Cognition Overall Cognitive Status: Impaired Arousal/Alertness: Delayed responses to stimuli Orientation Level: Oriented to person Following Commands: Follows commands 25-50% of the time, Follows one step commands with increased time, Follows one step commands with repetition Safety Judgment: Decreased awareness of need for assistance, Decreased awareness of need for safety Extremity Assessments: See PT Evaluation flowsheet for Extremity Measurement updates. Skin and Edema: Balance: Sitting Balance Static Sitting-Level of Assistance: (stand by to min) Skilled Rationale: Sequencing, Hand placement, Verbal cues, Positioning, Full extension to upright positioning/posture, Finding/maintaining midline positioning Sitting Balance Skilled Intervention/Details: Pt completed EOB sitting x 15-16 minutes to increase strength and endurance. Pt mostly required contact guard/stand by assist, intermittent assist to min assist with right lateral leaning as patient fatigued Standing Balance Static Standing-Level of Assistance: 2-person assist, Dependent Standing-Balance Support: Gait belt, Hand-held assist Skilled Rationale: Positioning, Hand placement, Verbal cues, Sequencing Standing Balance Skilled Intervention/Details: Pt completed static standing with dependent assist of 2, arm and arm assist, cues for full trunk extension Mobility Assessment/Intervention: Supine to Sit Mobility Kirvin Level: Supine->Sit: dependent (less than 25% patient effort) Physical Assist: Supine->Sit: 2 person assist Bed Features/Set-up: Supine->Sit: Head of bed elevated, Use of bed rail Skilled Rationale: Positioning, Sequencing, Hand placement, Verbal cues Sit to Supine Mobility Kirvin Level: Sit->Supine: dependent (less than 25% patient effort) Physical Assist: Sit->Supine: 2 person assist Transfer Assessment/Intervention: Sit to Stand Transfer Kirvin Level: Sit->Stand: dependent (less than 25% patient effort) Physical Assist: Sit->Stand: 2 person assist Assistive Device: Sit->Stand: gait belt, hand held assist Skilled Rationale: Positioning, Sequencing, Hand placement, Verbal cues Skilled Intervention/Details: Sit->Stand: pt educated in sit to stand transfer x 2 with dependent assist of 2 and arm and arm assist Gait/Functional Mobility Assessment/Intervention: Stairs Assessment/Intervention: Outcome Score(s): CURRENT [facility] Basic Mobility Inpatient Short Form Turning over in bed: 2 - A Lot of Assistance Moving from lying on back to sittin - Total Assistance Moving to and from bed to chair: 1 - Total Assistance Sitting/standing from chair: 1 - Total Assistance Walk in hospital room: 1 - Total Assistance Climbing 3-5 steps with a railin - Total Assistance CURRENT [facility] Mobility Raw Score: 7 CURRENT [facility] Mobility Functional Limitation: 92.36% Impaired in Basic Mobility Interventions: Assessment & Plan: Pt making good progress toward therapy goals, improved alertness and sitting balance Patient Instruction/Education this session: Learners: Patient Education provided: Activity outside of therapy, Discharge recommendations, Fall precautions Plan for next session: continue to progress sitting balance/endurance, and sit to stand transfers Acute PT Goals Plan of Care by Crystal Desouza PT at 11/04/2024 1:16 PM Version 1 of 1 Problem: PT - General Goals Goal: Supine <-> Sit Transfers - Patient will perform supine to/from sit transfers with contact guard assistance and with use of hospital bed features in order to improve functional mobility and safety. Outcome: Progressing Goal: Sit <-> Stand Transfers - Patient will perform sit to/from stand transfers with minimal assistance and least restrictive device in order to improve functional mobility and safety. Outcome: Progressing Goal: Standing Endurance/Balance - Patient will perform standing balance tasks for 8 min with minimal assistance and least restrictive device Outcome: Progressing Goal: Ambulation - Patient will ambulate 50 feet with minimal assistance and least restrictive device to improve ability to safely navigate home and community. Outcome: Progressing PT treatment consisted of the following to progress towards the above goal(s): PT Evaluation and Treatment Time Neuromuscular Re-Education Time Entry: 23 Treating Therapist: Crystal Desouza PT Additional Details: PT Co-Eval/Treatment Information Co-evaluation/co-treatment performed?: Yes, simultaneous billable skilled care was necessary due to medical complexity and functional deficits Other discipline: OT Rationale for need to co-eval/treat: postural control, alertness/arousal, cognition, coordination Co-treatment goal focus: balance, mobility PPE used during patient interaction: gloves Patient location at end of session: bed with head of bed elevated Alarms on at end of session: RN aware, none altered (sitter and RN present in room) Needs in reach. Time In: 911 Time Out: 934 Total Visit Time: 23 minutes Total Treatment Time (skilled, billable minutes): 23 minutes Upon discontinuation of Acute Care Physical Therapy Services or patient discharge from the hospital this note represents the current Physical Therapy Discharge Summary. Acute Occupational Therapy Treatment Prior Gross Functional Mobility: needs assist Current AM-PAC score(s): CURRENT AM-PAC Activity Raw Score: 9 Based on the above AM-PAC score(s), and OT clinical judgment, discharge destination recommendation is: Longterm Facility Barriers to discharge home: Patient needs assistance with ADLs, Patient needs assistance with IADLs (see note below) Mobility equipment available at home: ADL equipment available at home: shower chair, grab bars Equipment recommendations for discharge: Equipment issued: none Current therapy frequency recommendation(s) in acute: 5 times a week Activity Recommendations for outside of rehab session: 2 Precautions and Weightbearing Status: OT Existing Precautions/Restrictions: fall Lines/Tubes/Drains (Rehab Status): Tube feeding Patient Safety Communication Prior to Visit: Nursing Subjective: Smiling and alert at EOB Pain: General Pain Documentation (Adult, OB, Peds) Presence of Pain: denies pain/discomfort Presence of Pain Score (Auto-calculated): 0 Objective/Observation: Vitals/Vitals Responses to Treatment: VSS Cognition Overall Cognitive Status: Impaired Arousal/Alertness: Delayed responses to stimuli Orientation Level: Oriented to person, Oriented to place Following Commands: Follows commands 25-50% of the time Safety Judgment: Decreased awareness of need for assistance, Decreased awareness of need for safety Awareness of Errors: Assistance required to identify errors made, Assistance required to correct errors made ADL Assessment/Intervention: ADLs: ADL Assessment: Grooming Deficit, LE Dressing Deficit, Toileting Deficit Grooming Assistance: Minimal Grooming Location: edge of bed Grooming Deficit: Increased time to complete, Activity tolerance, Generalized weakness, Balance Grooming Skilled Rationale (Verbal/Tactile/Visual/Demonstrat ion): Supervision, Technique of activity, Cues for increased safety, Setup Grooming Intervention/Details: Able to wash face, brush teeth and brush hair LE Dressing Assistance: Maximal LE Dressing Location: edge of bed LE Dressing Deficit: Don/doff R sock, Don/doff L sock LE Dressing Skilled Rationale (Verbal/Tactile/Visual/Demonstrat ion): Supervision, Setup, Cues for increased safety, Technique of activity LE Dressing Intervention/Details: pt able to initiate reaching to adjust socks and use of RUE during task Toilet Assistance: Total Toileting Location: (incontinence in bed) Toileting Deficit: Activity tolerance, Generalized weakness, Balance Toilet Skilled Rationale (Verbal/Tactile/Visual/Demonstrat ion): Setup, Supervision, Technique of activity, Cues for increased safety Toileting Intervention/Details: X 2 trials for pericare Balance: Sitting Balance Static Sitting-Level of Assistance: (stand to min) Skilled Rationale: Hand placement, Verbal cues, Sequencing, Positioning Sitting Balance Skilled Intervention/Details: EOB sitting this session X 15 minutes with mostly contact guard to stand by assist Standing Balance Static Standing-Level of Assistance: 2-person assist, Dependent Standing-Balance Support: Gait belt Skilled Rationale: Tactile cues, Verbal cues, Hand placement Mobility Assessment/Intervention: Supine to Sit Mobility Kirvin Level: Supine->Sit: dependent (less than 25% patient effort) Physical Assist: Supine->Sit: 2 person assist Bed Features/Set-up: Supine->Sit: Head of bed elevated Skilled Rationale: Hand placement, Verbal cues, Sequencing, Positioning Transfer Assessment/Intervention: Sit to Stand Transfer Kirvin Level: Sit->Stand: dependent (less than 25% patient effort) Physical Assist: Sit->Stand: 2 person assist Assistive Device: Sit->Stand: gait belt, hand held assist Skilled Rationale: Verbal cues, Hand placement, Sequencing, Positioning Skilled Intervention/Details: Sit->Stand: X 3 trials this session and limited effort by pt CURRENT [facility] Daily Activity Inpatient Short Form Putting on/Taking Off Lower Body Clothin - Total Assistance Bathin - A Lot of Assistance Toiletin - Total Assistance Putting on/Taking Off Upper Body Clothin - A Lot of Assistance Groomin - A Lot of Assistance Eatin - Total Assistance CURRENT [facility] Activity Raw Score: 9 CURRENT [facility] Activity Functional Limitation/Modifier: 79.59% Currently Impaired in Daily Activity - CL Assessment & Plan: Pt with progress towards goals. Improved alertness and participation in ADLs. Improved use of RUE but still weakness and inattention. Improved balance at EOB this session but still required total assist for transfers to stand. Due to progress, but no goals met consistently would benefit from continued OT services Patient Instruction/Education this session: Learners: Patient Education provided: Activity outside of therapy Teaching method: Verbal Education/Instruction Learner response: Needs review Plan for next session: mayra [facility] OT Goals Plan of Care by Molly Wagner OT at 11/04/2024 1:51 PM Version 1 of 1 Problem: OT - ADLs Goal: Grooming - Patient will complete grooming edge of bed with minimal assistance for improved ability to safely complete ADLs. Outcome: Progressing Problem: OT - Transfers Goal: Transfers Toilet/ Bedside Commode - Patient will transfer to/from toilet/bedside commode with minimal assistance for improved ability to safely complete ADLs. Outcome: Progressing Problem: OT - Strength/ROM Goal: Neuro Re-education - Patient will participate in neuro re-ed of right upper extremity with minimal assistance and 75% accuracy for improved functional use in ADLs. Outcome: Progressing Problem: OT - Cognition Goal: Cognition Simple ADL - Patient will demonstrate improved cognition, completing simple ADL task for 5 minutes with no greater than min cues required to maintain attention. Outcome: Progressing Problem: OT - Vision Goal: Visual Scanning ADL - Patient will employ use of visual compensatory strategies with no greater than min cues in 5/5 trials to increase participation and safety in ADLs. Outcome: Progressing OT treatment consisted of the following to work and progress towards the above goal(s): OT Evaluation and Treatment Time Self Care/Home Management (ADLs) Time Entry: 13 Therapeutic Activity Time Entry: 10 Treating Therapist: Molly Wagner OT Additional Details: OT Co-Eval/Treatment Information Co-evaluation/co-treatment performed?: Yes, simultaneous billable skilled care was necessary due to medical complexity and functional deficits Other discipline: PT Rationale for need to co-eval/treat: postural control, cognition Co-treatment goal focus: balance, mobility, transfer, self-care PPE used during patient interaction: gloves Patient location at end of session: bed with head of bed elevated Alarms on at end of session: bed alarm, RN aware, safety home care physical therapist present (RN and CHAIR MENDER at bedside) Needs in reach. Time In: 910 Time Out: 933 Total Visit Time: 23 minutes Total Treatment Time (skilled, billable minutes): 23 minutes Upon discontinuation of Acute Care Occupational Therapy Services or patient discharge from the hospital this note represents the current Occupational Therapy Discharge Summary. Neurovascular Stroke Service Intracerebral Hemorrhage Note IDENTIFYING INFORMATION Behzad Hay MR# [id number] 11/04/2024 HISTORY OF PRESENT ILLNESS Behzad Hay is a 84 y.o. female with a history of A fib on eliquis (Last dose 10/18 AM), HTN, HLD who presented from [place] with L thalamic ICH. LKW 2100 10/17. Pt reportedly awoke at 0600 on 10/18 with some R sided weakness and was found by her home health aide at 0900 slumped against the wall with R sided weakness, R facial droop and dysarthria. NIHSS on arrival to [facility] ED 16 (2, 1 commands, 1 L gaze pref, 1 L facial droop, 2 R arm, 2 L leg, 3 R leg, 2 aphasia, 2 dysarthria). CTH at OSH with L thalamic IPH. CTA at OSH with no acute abnormalities . Repeat CTH at [facility] with redemonstration of known L thalamic ICH and remote L MCA territory infarct. BP on arrival 148/76. INTERVAL HISTORY 10/18: Admitted to [facility] for frequent neuro check 10/19: Transfer to [place] service 10/20: drowsy today after receiving Seroquel overnight, repeat CTH stable, increase metoprolol for afib RVR 10/21: improved exam today, SUPERVISOR OF INSTRUCTION re-eval pending, lisinopril increased to home dose 10/22: improved neuro exam however failed FEES, re-eval Monday 10/23: Seroquel/restraints ON for agitation. 10/24: Abd discomfort, urinary retention requiring straight cath 10/25: Held Lisinopril, pending MBS, has required sitter overnight, started on Aspirin today 10/26: A fib RVR last night, UA concerning for UTI, started on Ceftriaxone, started on Cardura for urinary retention, MBS today 10/27: MBS failed. DHT removed last night 2/2 clogging. GI c/s for PEG planning. 10/28: ROSE, complete atbx for UTI, GI recs for PEG planning pending, decrease lisinopril 10/29: self removed DHT this morning, billy mitt restraints applied, increase bowel regimen, hold lisinopril 10/30: Sitter at bedside. No acute events. 10/31: PEG likely next week. KUB in am per GI recs. 11/01: DTH removed/replaced. Tapia for retention/bladder rest. 11/02: Ampicillin for UTI. Sched. Seroquel 11/03: Received extra dose of seroquel at night. Increase night time dose. Urine cultures pending. 11/04: Had an episode of agitation overnight, no extra meds given, restraints changed to soft wrist. PHYSICAL EXAM Gen: alert, NAD HEENT: normocephalic, no scalp lesions or tenderness, PERRLA, EOMI Neck: trachea midline CV: NSR on monitor Lungs: Respirations unlabored with equal chest rise Abd: soft, nontender, nondistended Extrem: Warm and well perfused, no cyanosis, clubbing, edema Neuro: alert, expressive aphasia, garbled/incoherent with some intermittently clear, follows some simple commands, R hemiparesis CN II visual snyder full to confrontation without visual extinction CN III, IV, PERRL. Gaze midline CN V CN VII R facial droop CN VIII hearing grossly intact to voice CN IX & X Dysarthria/garbled speech CN XI shoulder shrug full strength bilaterally CNXII tongue protrudes midline MOTOR EXAMINATION: R hemiparesis NIHSS Provider NIH Stroke Scale NIH Interval (Provider): daily NIH Level of Conciousness (Provider): 0 NIH LOC Questions (Provider): 2 NIH LOC Commands (Provider): 1 NIH Best Gaze (Provider): 0 NIH Visual (Provider): 0 NIH Facial Palsy (Provider): 1 NIH Left Arm Motor (Provider): 0 NIH Right Arm Motor (Provider): 2 NIH Left Leg Motor (Provider): 0 NIH Right Leg Motor (Provider): 0 NIH Limb Ataxia (Provider): 0 NIH Sensory (Provider): 0 NIH Best Language (Provider): 2 NIH Dysarthria (Provider): 2 NIH Extinction and Inattention (Provider): 0 NIH Total Score (Provider): 10 Intracerebral Hemorrhage Volume ICH Volume Date of Scan: 10/18/24 Time of Scan: 1347 (A) Maximum Length (cm): 1.1 cm (B) Perpendicular Length (cm): 1.8 cm (C) Number of Slices: 3 (C) Slice Thickness (cm) : 0.5 cm ICH Volume (ml) (Calculated Score): 1.49 Intracerebral Hemorrhage Score Intracerebral Hemorrhage (ICH) Scale [place] Coma Scale Points: 1-->GCS 5-12 Age>/=80: 1-->yes Infratentorial Origin of Hemorrhage?: 0-->no ICH Volume >/= 30cm(3): 0-->no (less than 30cm(3)) Intraventricular Hemorrhage?: 0-->no ICH Score (Calculated): 2 Score 30 Day Mortality following ICH 0 0% Mortality 1 13% Mortality 2 26% Mortality 3 72% Mortality 4 97% Mortality 5 100% Mortality ASSESSMENT AND PLAN Neuro: Acute left BG ICH 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 CTA brain/neck: No acute findings 6 hr CTH:Stable exam. Acute left thalamic hemorrhage with mild surrounding vasogenic edema. 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 MRI brain: Left thalamic hemorrhage as noted on October 18, 2024 CT head.Punctate right occipital and left cerebellar acute infarcts. Remote left MCA territory infarct. CTH follow up: Stable left thalamic parenchymal hematoma with mildly increased edema. No significant mass effect TTE: EF 61%, LDL 73, A1c 5.4 Etiology: Likely hypertensive Antiplatelet plan: started Aspirin on 10/25 Anticoagulation plan: Referral for cardiology ordered for Watchman consideration as family/patient had already been considering prior to hemorrhagic stroke. If unable to get watchman, resume home Eliquis in 1 month post stroke (11/18) Blood pressure goal: normotension Hemorrhagic Stroke Core Measures -NCISS on admission 16 -Patient has been started on Mechanical (SCD's) and Pharmacological (SQ heparin) DVT prophylaxis started after stable HCT. -Antiplatelet therapy is not indicated. -Anticoagulation therapy not indicated in hemorrhagic stroke -Patients LDL 73 and HgbA1c 5.4 were checked -Dysphagia screening ordered, and will be completed prior to patient receiving oral intake. -Stroke education booklet has been provided both written and verbal education to the patient and family regarding hemorrhagic strokes. We have reviewed the patient's personal modifiable risk factors including: HTN, on eliquis as well as education on reducing these risk factors. -Patient is being assessed for Rehab by PT/OT/Speech and PM&R if indicated. Essential HTN: Home antihypertensives: lisinopril 10mg BID and metoprolol 25mg BID -Metoprolol 25mg BID - PRN labetalol and hydralazine -Lisinopril discontinued 10/29 due to low BP, resume as indicated UTI: UA dirty on 10/26, completed Ceftriaxone for 3 days (end date: 10/28) -UA with bacteria 11/02: Started Ampicillin -Follow up cultures Agitation/delirium: -10/29 removed DHT, billy mitts and sitter ordered -DHT removed again 11/01 -11/02: Seroquel scheduled 12.5 mg BID. Increased night dose to 25 mg on 11/03. GI will not place PEG until agitation managed Acute urinary retention -Started on Cardura on 10/25 evening -Tapia placed 11/01 for retention/bladder rest -Attempt void trials tomorrow on 11/04 HLD -hold home atorvastatin 40mg due to elevated LFTs on admission, downtrended, likely resume at discharge Atrial Fibrillation - On home eliquis 2.5mg BID (LD 7/7 AM) --> held in setting of acute bleed - received Kcentra at OSH - continue metoprolol 25mg BID for rate control - Antiplatelet plan: plan to start Aspirin 81 mg post stroke day #10 (10/27/24) - Anticoagulation plan: Referral for cardiology ordered for Watchman consideration as family/patient had already been considering prior to hemorrhagic stroke. If unable to get watchman, resume home Eliquis in 1 month post stroke (11/18) Dysphagia: 2/2 stroke, FEES on 10/22 and MBS on 10/26 - Continue DHT and TF -11/02: GI deferring PEG until agitation managed. Seroquel scheduled Elevated LFTs (POA) - elevated on admit, repeat LFTs downtrended Fall Risk: Assessed for patient fall risk and discussed safety measures during rounding. Other problems: Complexity. Wound Documentation Any conditions listed below are present on admission unless otherwise specified. . Disposition: Behzad Hay will likely be discharged to pending medical readiness Reta Galarza, [employer] OPERATOR 11/04/2024 3:59 PM VITAL SIGNS Temp: [97.6 F (36.4 C)-99.4 F (37.4 C)] 97.6 F (36.4 C) Pulse (Heart Rate): [78-83] 83 Resp Rate: [18-24] 22 BP: (108-139)/(51-63) 108/51 O2 Sat (%): [95 %-100 %] 98 % Oxygen Therapy: Oxygen Therapy O2 Sat (%): 98 % O2 Device: room air Intake/Output: Intake/Output Summary (Last 24 hours) at 11/04/2024 1559 Last data filed at 11/04/2024 1500 Gross per 24 hour Intake 2265.49 ml Output 1250 ml Net 1015.49 ml LABS/CULTURES Lab Results Component Value Date WBC 9.50 11/03/2024 HGB 11.8 11/03/2024 HCT 37.4 11/03/2024 PLATELET 511 (H) 11/03/2024 MCV 96.6 11/03/2024 Lab Results Component Value Date SODIUM 137 11/03/2024 POTASSIUM 4.6 11/03/2024 CHLORIDE 99 11/03/2024 CO2 31 11/03/2024 BUN 31 (H) 11/03/2024 CREATSERUM 0.75 11/03/2024 GLUCOSE 115 11/03/2024 Lab Results Component Value Date CHOLESTEROL 140 10/18/2024 TRIG 106 10/18/2024 HDL 46 10/18/2024 LDLCALC 73 10/18/2024 Lab Results Component Value Date HGBA1C 5.4 10/18/2024 Lab Results Component Value Date ALBUMIN 3.9 10/19/2024 , No results found for: "CPK", TROP IMAGING/DIAGNOSTIC STUDIES MEDICATIONS ampicillin 2 g Intravenous Q8HNS aspirin 81 mg Oral Daily Or aspirin 300 mg Rectal Daily doxazosin 2 mg Per NG tube QHS heparin 5,000 Units Subcutaneous Q8H 0800/1600/2200 Melatonin 6 mg Per NG tube Daily early evening Metoprolol 25 mg Per NG tube Q12H QUEtiapine 12.5 mg Per NG tube Daily QUEtiapine 25 mg Per NG tube QHS Senna 17.2 mg Per NG tube Daily Water liquid (free water) 30 mL Per NG tube Q4H REID Canales 11/04/2024 3:59 PM VITAL SIGNS Temp: [97.6 F (36.4 C)-99.4 F (37.4 C)] 97.6 F (36.4 C) Pulse (Heart Rate): [78-83] 83 Resp Rate: [18-24] 22 BP: (108-139)/(51-63) 108/51 O2 Sat (%): [95 %-100 %] 98 % IMAGING/DIAGNOSTIC STUDIES MEDICATIONS ampicillin 2 g Intravenous Q8HNS aspirin 81 mg Oral Daily Or aspirin 300 mg Rectal Daily doxazosin 2 mg Per NG tube QHS heparin 5,000 Units Subcutaneous Q8H 0800/1600/2200 Melatonin 6 mg Per NG tube Daily early evening Metoprolol 25 mg Per NG tube Q12H QUEtiapine 12.5 mg Per NG tube Daily QUEtiapine 25 mg Per NG tube QHS Senna 17.2 mg Per NG tube Daily Water liquid (free water) 30 mL Per NG tube Q4H Cosigned by Ousmane Cantu DO at 11/04/2024 5:41 PM EDT Associated attestation - Ousmane Cantu, - 11/04/2024 5:41 PM EDT I saw and independently examined the patient on 11/04/2024. I agree with the history, examination, and medical decision making as outlined. In addition, please see below. 84F w/ afib on eliquis. 10/18/24 awoke w/ R weakness. CTH/MRI w/ L thalamic ICH. CTA neg. TTE normal. LDL 73, A1c 5.4%. Exam: Awake but agitated and encephalopathic, makes few coherent words. RUE can lift against gravity. Other extremities intact. DOAC-related ICH. Hospital stay c/b delirium. Plan: Dysphagia and delirium - seroquel .09/05. Suspect source of agitation is dobhoff tube however GI declining PEG due to agitation. Will control agitation so she can get PEG. Will wean sitter and mitts after NG out. UTI - bactrim 7 days. Aspirin 81 for now, family interested in pursuing watchman as an outpatient. Dispo - SNF pending PEG placement. Ousmane Cantu D.O. Vascular Neurology [facility] Acute Care Speech Language Pathology Treatment Diet Recommendations: Recommended Method of Nutrition: NPO, no oral diet recommended Recommended Medication Administration (as appropriate per MD): Non-Oral Type of Cues/Supervision: 1:1 assistance Assistance: nurse/aide Consider limited ice chips following oral care, given strict 1:1 RN supervision to assist in secretions clearance and reduce risk of disuse atrophy. *To prevent potential development of aspiration pneumonia/nosocomial infections, RECOMMEND: Oral care routine q4h and HOB upright as tolerated Best mode of Communication: spoken language Communication Strategies: -Ask conflicting yes/no questions (I.e. "Are you in pain?" followed by "Are you comfortable?") to ensure accurate response. -Provide pt options in field of 2. -Encourage use of intelligibility strategies: (SOS) Speak Up Over exaggerate / over pronounce sounds Slow down Discharge Recommendations: Based on the below outcome measures/assessment score(s), and SUPERVISOR OF INSTRUCTION clinical judgment, discharge destination recommendation is: Longterm Facility Barriers to discharge home: Inability to communicate basic wants/needs, Need for 1:1 assist to ensure safety with all PO intake Supporting factors for discharge setting: Impaired swallow function limiting nutritional status and safety with oral intake, Impaired speech and language skills limiting ability to communicate basic wants/needs, Impaired cognitive skills limiting independence Acute SUPERVISOR OF INSTRUCTION Outcomes Tracking Communicate basic wants and needs?: no Demo insight/appreciation of deficits?: no Complete basic problem solving?: unable to determine Current therapy frequency recommendation in acute: Speech/Lang/Cog Therapy Frequency: 5 times a week Swallow Therapy Frequency: 5 times a week Clinical Impression: Per MBS completed 10/26, Patient presents with moderate oropharyngeal dysphagia s/p acute L thalamic IPH, 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 She presented with slightly improved alertness, but overall more restless this date. She continues to present with overt s/s of aspiration/penetration with thin liquids. With pureed solids, required max cues for use of second swallow. Continue NPO with meds non-oral. Additionally, she presents with ongoing dysarthria, aphasia and apraxia impacting ability to communicate her wants/needs. Today she required min cues for yes/no question accuracy and command following. Overall moderate cues for naming but named 70% accurate. Ongoing SUPERVISOR OF INSTRUCTION services recommended. Subjective information: Patient alert, resting in bed. Slightly restless/preseverating on NGT placement with cues cooperative and participatory. Pain: General Pain Documentation (Adult, OB, Peds) Presence of Pain: denies pain/discomfort Presence of Pain Score (Auto-calculated): 0 Precautions: Patient Safety Communication Prior to Visit: Nursing Lines/Tubes/Drains (Rehab Status): Tube feeding Existing Precautions/Restrictions: fall Respiratory Status: O2 Sat (%): [95 %-100 %] 98 % O2 Device: room air Acute SUPERVISOR OF INSTRUCTION Goals Plan of Care by ULISES Lombardo at 11/04/2024 8:10 AM Version 1 of 1 Problem: SUPERVISOR OF INSTRUCTION - Language Goal: Command Following - Patient will complete 1-step commands with 75% accuracy with no cues in order to improve direction following for functional gains in ability to participate more independently in care Outcome: Progressing Addressed receptive language via basic command following. Patient asked simple 1 step commands (e.g., open your mouth) and asked to complete the direction.She was able to do so with 80% accuracy with min cues. Unable to fade. Goal: Yes/No Response - Patient will answer yes/no questions related to current situation/environment with 90% accuracy with no cues in order to improve ability to answer questions related to care Outcome: Ongoing Addressed expressive communication via "yes" or "no" responses. Patient asked basic questions (e.g. is your name ___?) and asked to verbally indicate their response. Improvements noted in verbal initiation compared to yesterday. She answered with 80% accuracy with notable preseveration on "yes" at times requiring min cues (repetition/etc) Goal: Name Basic Objects/Pictures - Patient will name basic objects/pictures with 75% accuracy, with fading cues in order to improve word-finding and functional communication Outcome: Progressing Addressed expressive language via confrontational naming task. Patient asked to name functional items within the room (e.g., strange, pen, bed, etc.). She required overall moderate cues in order to accurately name items throughout with 70% accuracy. Benefiting the most from phonemic cues and therapeutic model. Goal: Object Identification by Name - Patient will complete identification tasks to select target item by name in field of 2 in 75% of opportunities with fading cues in order to demonstrate readiness for augmentative and alternative communication. Outcome: Ongoing Not addressed this date. Problem: Dysphagia Goal: BRAYDEN- Patient will complete isometric exercises (5 repetitions with a 10-second interval between the sets for a maximum of 2 sets) to improve pharyngeal swallow given fading verbal cues for form and pacing over x3-5 sessions Outcome: Progressing Addressed hyolaryngeal elevation via Jaw Opening Exercise (BRAYDEN). Jaw Opening Exercise (BRAYDEN) is an evidence based isometric exercise to improve the suprahyoid muscle strength. Research has demonstrated that this training results in elevating the hyoid bone, elevating the UES, improving its opening, and decreasing the pharyngeal transit time. Training task involves isometric exercise, where the patient is asked to extend the jaw to its maximum and maintain this position for 10 seconds. Each exercise set consists of five repetitions with a 10-second interval between the sets for a maximum of 2 sets of 5. Patient was able to complete 10 reps today with max verbal cues for form and pacing to maximize benefit of exercise (e.g., patient attempting to close her mouth occasionally). Patient's reliability/form improved from yesterday and able to increase amount of repetitions. Goal: Bolus challenge - Patient will accept trials of thin liquids x10-15 trials, given moderate cues for use of strategies to improve bolus control/timing of swallow initiation with no signs of aspiration to determine readiness for repeat study Outcome: Ongoing Patient accepted x2 thin liquids via spoon. Noted overt s/s of aspiration/penetration (coughing, wet vocal quality). Goal: Swallow Strategy (Oral)- Patient will utilize trained swallow strategies: multiple swallows, liquid wash during PO trials of puree solids/IDDSI 4 with moderate cues to demonstrate improved oral efficiency and readiness for repeat instrumental. Outcome: Ongoing Addressed dysphagia via direct bolus observation and instruction. Reviewed swallow strategies and rationale for strategy.. She accepted x5 bites of pureed solids with x2 liquid wash (thin liquids) requiring max cues for use of strategies with ~80% accuracy (perceived initiation of second swallow).. Goal ongoing Patient Education/Instruction Learners: Patient Education provided: Dysphagia risk factors, Dysphagia recommendation risk: benefit analysis, Dysphagia recommendations/impressions Teaching method: Verbal Education/Instruction Learner response: No evidence of learning Learning preferences: Auditory Learning considerations: Speech expression, Speech comprehension Patient Instruction/Education comments: Reviewed SUPERVISOR OF INSTRUCTION purpose and POC.Discussed ongoing NPO status and need for study in the future Plan for next session: 11/04- good, ongoing speech/language tx. Ongoing bolus trials to dertmine readiness for FEES SUPERVISOR OF INSTRUCTION Outcomes: FOIS 1 Speech Language Pathologist: ULISES Lombardo Time In: 809 Time Out: 827 Total Visit Time: 18 minutes Total Treatment Time (skilled, billable minutes): 18 minutes Non-billable assistance during session: n/a Assisted by during session: [facility] PPE used during patient interaction: gloves Patient location/status at end of session: bed with head of bed elevated Patient alarms at end of session: mitts, safety home care physical therapist present Needs in reach. SUPERVISOR OF INSTRUCTION Evaluation and Treatment Time Speech Therapy - Individual 12770: 10 Swallowing Dysfunction Treatment 45795: 8 Upon discontinuation of Acute Care Speech Therapy Services or patient discharge from the hospital this note represents the current Speech Therapy Discharge Summary Neurovascular Stroke Service Intracerebral Hemorrhage Note IDENTIFYING INFORMATION Behzad Hay MR# [id number] 11/03/2024 HISTORY OF PRESENT ILLNESS Behzad Hay is a 84 y.o. female with a history of A fib on eliquis (Last dose 10/18 AM), HTN, HLD who presented from [place] with L thalamic ICH. LKW 2100 10/17. Pt reportedly awoke at 0600 on 10/18 with some R sided weakness and was found by her home health aide at 0900 slumped against the wall with R sided weakness, R facial droop and dysarthria. NIHSS on arrival to [facility] ED 16 (2, 1 commands, 1 L gaze pref, 1 L facial droop, 2 R arm, 2 L leg, 3 R leg, 2 aphasia, 2 dysarthria). CTH at OSH with L thalamic IPH. CTA at OSH with no acute abnormalities . Repeat CTH at [facility] with redemonstration of known L thalamic ICH and remote L MCA territory infarct. BP on arrival 148/76. INTERVAL HISTORY 10/18: Admitted to [facility] for frequent neuro check 10/19: Transfer to [place] service 10/20: drowsy today after receiving Seroquel overnight, repeat CTH stable, increase metoprolol for afib RVR 10/21: improved exam today, SUPERVISOR OF INSTRUCTION re-eval pending, lisinopril increased to home dose 10/22: improved neuro exam however failed FEES, re-eval Monday 10/23: Seroquel/restraints ON for agitation. 10/24: Abd discomfort, urinary retention requiring straight cath 10/25: Held Lisinopril, pending MBS, has required sitter overnight, started on Aspirin today 10/26: A fib RVR last night, UA concerning for UTI, started on Ceftriaxone, started on Cardura for urinary retention, MBS today 10/27: MBS failed. DHT removed last night 2/2 clogging. GI c/s for PEG planning. 10/28: ROSE, complete atbx for UTI, GI recs for PEG planning pending, decrease lisinopril 10/29: self removed DHT this morning, billy mitt restraints applied, increase bowel regimen, hold lisinopril 10/30: Sitter at bedside. No acute events. 10/31: PEG likely next week. KUB in am per GI recs. 11/01: DTH removed/replaced. Tapia for retention/bladder rest. 11/02: Ampicillin for UTI. Sched. Seroquel 11/03: Received extra dose of seroquel at night. Increase night time dose. Urine cultures pending. PHYSICAL EXAM Gen: alert, NAD HEENT: normocephalic, no scalp lesions or tenderness, PERRLA, EOMI Neck: trachea midline CV: NSR on monitor Lungs: Respirations unlabored with equal chest rise Abd: soft, nontender, nondistended Extrem: Warm and well perfused, no cyanosis, clubbing, edema Neuro: alert, expressive aphasia, garbled/incoherent with some intermittently clear, follows some simple commands, R hemiparesis CN II visual snyder full to confrontation without visual extinction CN III, IV, PERRL. Gaze midline CN V CN VII R facial droop CN VIII hearing grossly intact to voice CN IX & X Dysarthria/garbled speech CN XI shoulder shrug full strength bilaterally CNXII tongue protrudes midline MOTOR EXAMINATION: R hemiparesis NIHSS Provider NIH Stroke Scale NIH Interval (Provider): daily NIH Level of Conciousness (Provider): 0 NIH LOC Questions (Provider): 2 NIH LOC Commands (Provider): 1 NIH Best Gaze (Provider): 0 NIH Visual (Provider): 0 NIH Facial Palsy (Provider): 1 NIH Left Arm Motor (Provider): 0 NIH Right Arm Motor (Provider): 2 NIH Left Leg Motor (Provider): 0 NIH Right Leg Motor (Provider): 2 NIH Limb Ataxia (Provider): 0 NIH Sensory (Provider): 0 NIH Best Language (Provider): 2 NIH Dysarthria (Provider): 2 NIH Extinction and Inattention (Provider): 0 NIH Total Score (Provider): 12 Intracerebral Hemorrhage Volume ICH Volume Date of Scan: 10/18/24 Time of Scan: 1347 (A) Maximum Length (cm): 1.1 cm (B) Perpendicular Length (cm): 1.8 cm (C) Number of Slices: 3 (C) Slice Thickness (cm) : 0.5 cm ICH Volume (ml) (Calculated Score): 1.49 Intracerebral Hemorrhage Score Intracerebral Hemorrhage (ICH) Scale Paul Coma Scale Points: 1-->GCS 5-12 Age>/=80: 1-->yes Infratentorial Origin of Hemorrhage?: 0-->no ICH Volume >/= 30cm(3): 0-->no (less than 30cm(3)) Intraventricular Hemorrhage?: 0-->no ICH Score (Calculated): 2 Score 30 Day Mortality following ICH 0 0% Mortality 1 13% Mortality 2 26% Mortality 3 72% Mortality 4 97% Mortality 5 100% Mortality ASSESSMENT AND PLAN Neuro: Acute left BG ICH 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 CTA brain/neck: No acute findings 6 hr CTH:Stable exam. Acute left thalamic hemorrhage with mild surrounding vasogenic edema. 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 MRI brain: Left thalamic hemorrhage as noted on October 18, 2024 CT head.Punctate right occipital and left cerebellar acute infarcts. Remote left MCA territory infarct. CTH follow up: Stable left thalamic parenchymal hematoma with mildly increased edema. No significant mass effect TTE: EF 61%, LDL 73, A1c 5.4 Etiology: Likely hypertensive Antiplatelet plan: started Aspirin on 10/25 Anticoagulation plan: Referral for cardiology ordered for Watchman consideration as family/patient had already been considering prior to hemorrhagic stroke. If unable to get watchman, resume home Eliquis in 1 month post stroke (11/18) Blood pressure goal: normotension Hemorrhagic Stroke Core Measures -NHISS on admission 16 -Patient has been started on Mechanical (SCD's) and Pharmacological (SQ heparin) DVT prophylaxis started after stable HCT. -Antiplatelet therapy is not indicated. -Anticoagulation therapy not indicated in hemorrhagic stroke -Patients LDL 73 and HgbA1c 5.4 were checked -Dysphagia screening ordered, and will be completed prior to patient receiving oral intake. -Stroke education booklet has been provided both written and verbal education to the patient and family regarding hemorrhagic strokes. We have reviewed the patient's personal modifiable risk factors including: HTN, on eliquis as well as education on reducing these risk factors. -Patient is being assessed for Rehab by PT/OT/Speech and PM&R if indicated. Essential HTN: Home antihypertensives: lisinopril 10mg BID and metoprolol 25mg BID -Metoprolol 25mg BID - PRN labetalol and hydralazine -Lisinopril discontinued 10/29 due to low BP, resume as indicated UTI: UA dirty on 10/26, completed Ceftriaxone for 3 days (end date: 10/28) -UA with bacteria 11/02: Started Ampicillin -Follow up cultures Agitation/delirium: -10/29 removed DHT, billy mitts and sitter ordered -DHT removed again 11/01 -11/02: Seroquel scheduled 12.5 mg BID. Increase night dose to 25 mg on 11/03. GI will not place PEG until agitation managed Acute urinary retention -Started on Cardura on 10/25 evening -Tapia placed 11/01 for retention/bladder rest -Attempt void trials tomorrow on 11/04 HLD -hold home atorvastatin 40mg due to elevated LFTs on admission, downtrended, likely resume at discharge Atrial Fibrillation - On home eliquis 2.5mg BID (LD 10/18 AM) --> held in setting of acute bleed - received Kcentra at OSH - continue metoprolol 25mg BID for rate control - Antiplatelet plan: plan to start Aspirin 81 mg post stroke day #10 (10/27/24) - Anticoagulation plan: Referral for cardiology ordered for Watchman consideration as family/patient had already been considering prior to hemorrhagic stroke. If unable to get watchman, resume home Eliquis in 1 month post stroke (11/18) Dysphagia: 2/2 stroke, FEES on 10/22 and MBS on 10/26 - Continue DHT and TF -11/02: GI deferring PEG until agitation managed. Seroquel scheduled Elevated LFTs (POA) - elevated on admit, repeat LFTs downtrended Fall Risk: Assessed for patient fall risk and discussed safety measures during rounding. Other problems: Complexity. Wound Documentation Any conditions listed below are present on admission unless otherwise specified. . Disposition: Behzad Hay will likely be discharged to pending medical readiness Reta Galarza APRN-AVIATION ELECTRONIC WARFARE OPERATOR 11/03/2024 9:43 AM VITAL SIGNS Temp: [97.5 F (36.4 C)-98.2 F (36.8 C)] 97.5 F (36.4 C) Pulse (Heart Rate): [72-85] 75 Resp Rate: [16-18] 18 BP: (123-132)/(57-69) 132/63 O2 Sat (%): [93 %-100 %] 100 % Oxygen Therapy: Oxygen Therapy O2 Sat (%): 100 % O2 Device: room air Intake/Output: Intake/Output Summary (Last 24 hours) at 11/03/2024 0943 Last data filed at 11/03/2024 0735 Gross per 24 hour Intake 1732.51 ml Output 975 ml Net 757.51 ml LABS/CULTURES Lab Results Component Value Date WBC 9.50 11/03/2024 HGB 11.8 11/03/2024 HCT 37.4 11/03/2024 PLATELET 511 (H) 11/03/2024 MCV 96.6 11/03/2024 Lab Results Component Value Date SODIUM 137 11/03/2024 POTASSIUM 4.6 11/03/2024 CHLORIDE 99 11/03/2024 CO2 31 11/03/2024 BUN 31 (H) 11/03/2024 CREATSERUM 0.75 11/03/2024 GLUCOSE 115 11/03/2024 Lab Results Component Value Date CHOLESTEROL 140 10/18/2024 TRIG 106 10/18/2024 HDL 46 10/18/2024 LDLCALC 73 10/18/2024 Lab Results Component Value Date HGBA1C 5.4 10/18/2024 Lab Results Component Value Date ALBUMIN 3.9 10/19/2024 , No results found for: "CPK", TROP IMAGING/DIAGNOSTIC STUDIES MEDICATIONS ampicillin 2 g Intravenous Q8HNS aspirin 81 mg Oral Daily Or aspirin 300 mg Rectal Daily doxazosin 2 mg Per NG tube QHS heparin 5,000 Units Subcutaneous Q8H 0800/1600/2200 Melatonin 6 mg Per NG tube Daily early evening Metoprolol 25 mg Per NG tube Q12H [START ON 11/04/2024] QUEtiapine 12.5 mg Per NG tube Daily QUEtiapine 25 mg Per NG tube QHS Senna 17.2 mg Per NG tube Daily Water liquid (free water) 30 mL Per NG tube Q4H REID Canales 11/03/2024 9:43 AM VITAL SIGNS Temp: [97.5 F (36.4 C)-98.2 F (36.8 C)] 97.5 F (36.4 C) Pulse (Heart Rate): [72-85] 75 Resp Rate: [16-18] 18 BP: (123-132)/(57-69) 132/63 O2 Sat (%): [93 %-100 %] 100 % IMAGING/DIAGNOSTIC STUDIES MEDICATIONS ampicillin 2 g Intravenous Q8HNS aspirin 81 mg Oral Daily Or aspirin 300 mg Rectal Daily doxazosin 2 mg Per NG tube QHS heparin 5,000 Units Subcutaneous Q8H 0800/1600/2200 Melatonin 6 mg Per NG tube Daily early evening Metoprolol 25 mg Per NG tube Q12H [START ON 11/04/2024] QUEtiapine 12.5 mg Per NG tube Daily QUEtiapine 25 mg Per NG tube QHS Senna 17.2 mg Per NG tube Daily Water liquid (free water) 30 mL Per NG tube Q4H Cosigned by Ousmane Cantu DO at 11/03/2024 4:21 PM EDT Associated attestation - Ousmane Cantu DO - 11/03/2024 4:21 PM EDT I saw and independently examined the patient on 11/03/2024. I agree with the history, examination, and medical decision making as outlined. In addition, please see below. 84F w/ afib on eliquis. 10/18/24 awoke w/ R weakness. CTH/MRI w/ L thalamic ICH. CTA neg. TTE normal. LDL 73, A1c 5.4%. Exam: Awake but agitated and encephalopathic, makes few coherent words. RUE can lift against gravity. Other extremities intact. DOAC-related ICH. Hospital stay c/b delirium. Plan: Dysphagia and delirium - Suspect source of agitation is dobhoff tube however GI declining PEG due to agitation. Will start seroquel 12.5 bid to control agitation so she can get PEG. Will wean sitter and mitts after NG out. UTI - start ampicillin until culture speciates. Aspirin 81 for now, family interested in pursuing watchman as an outpatient. Dispo - SNF pending PEG placement. Ousmane Cantu D.O. Vascular Neurology [facility] Acute Care Speech Language Pathology Treatment Diet Recommendations: Recommended Method of Nutrition: NPO, no oral diet recommended Recommended Medication Administration (as appropriate per MD): Non-Oral Type of Cues/Supervision: 1:1 assistance Assistance: nurse/aide *Consider limited ice chips following oral care, given strict 1:1 RN supervision to assist in secretions clearance and reduce risk of disuse atrophy. *To prevent potential development of aspiration pneumonia/nosocomial infections, RECOMMEND: Oral care routine q4h and HOB upright as tolerated Best mode of Communication: spoken language Communication Strategies: -Ask conflicting yes/no questions (I.e. "Are you in pain?" followed by "Are you comfortable?") to ensure accurate response. -Provide pt options in field of 2. -Encourage use of intelligibility strategies: (SOS) Speak Up Over exaggerate / over pronounce sounds Slow down Discharge Recommendations: Based on the below outcome measures/assessment score(s), and SUPERVISOR OF INSTRUCTION clinical judgment, discharge destination recommendation is: Longterm Facility Barriers to discharge home: Inability to communicate basic wants/needs Supporting factors for discharge setting: Impaired swallow function limiting nutritional status and safety with oral intake, Impaired speech and language skills limiting ability to communicate basic wants/needs Acute SUPERVISOR OF INSTRUCTION Outcomes Tracking Communicate basic wants and needs?: no Demo insight/appreciation of deficits?: unable to determine Complete basic problem solving?: unable to determine Current therapy frequency recommendation in acute: Speech/Lang/Cog Therapy Frequency: 5 times a week Swallow Therapy Frequency: 5 times a week Clinical Impression: Per MBS completed 10/26, Patient presents with moderate oropharyngeal dysphagia s/p acute L thalamic IPH, 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 She continues to have intermittent lethargy/difficulties remaining alert impacting performance this date. Continue NPO with meds non-oral. Additionally, she presents with ongoing dysarthria, aphasia and apraxia impacting ability to communicate her wants/needs. She showed some small improvements in naming this date. Ongoing SUPERVISOR OF INSTRUCTION services recommended. Subjective information: Patient alert, resting in bed with SCA present. Noted waxing/wanning alertness requiring prompting throughout for consistent participaion. No family present. Pain: General Pain Documentation (Adult, OB, Peds) Presence of Pain: not present: non-verbal indicator of pain/discomfort Presence of Pain Score (Auto-calculated): 0 Precautions: Patient Safety Communication Prior to Visit: Nursing Lines/Tubes/Drains (Rehab Status): Telemetry Existing Precautions/Restrictions: fall Respiratory Status: O2 Sat (%): [93 %-100 %] 100 % O2 Device: room air Acute SUPERVISOR OF INSTRUCTION Goals Plan of Care by Aida Martinez SUPERVISOR OF INSTRUCTION at 11/03/2024 8:13 AM Version 1 of 1 Problem: SUPERVISOR OF INSTRUCTION - Language Goal: Command Following - Patient will complete 1-step commands with 75% accuracy with no cues in order to improve direction following for functional gains in ability to participate more independently in care Outcome: Ongoing Addressed receptive language via basic command following. Patient asked simple 1 step commands (e.g., open your mouth) and asked to complete the direction.She was able to do so with 80% accuracy with min cues. Goal: Yes/No Response - Patient will answer yes/no questions related to current situation/environment with 90% accuracy with no cues in order to improve ability to answer questions related to care Outcome: Ongoing Addressed expressive communication via "yes" or "no" responses. Patient asked basic questions (e.g. is your name ___?) and asked to verbally indicate their response. She wasn't able to verbally respond (possible lethargy impacting this date) and so use of gestures were employed (head nods/shakes). She answered with 50% accuracy with notable preseveration on "yes". Goal: Name Basic Objects/Pictures - Patient will name basic objects/pictures with 75% accuracy, with fading cues in order to improve word-finding and functional communication Outcome: Ongoing Addressed expressive language via confrontational naming task. Patient asked to name functional items within the room (e.g., strange, pen, bed, etc.). She required overall min cues in order to accurately name items throughout. Benefiting the most from semantic cues- unable to fade completely. Goal: Object Identification by Name - Patient will complete identification tasks to select target item by name in field of 2 in 75% of opportunities with fading cues in order to demonstrate readiness for augmentative and alternative communication. Outcome: Ongoing Problem: Dysphagia Goal: BRAYDEN- Patient will complete isometric exercises (5 repetitions with a 10-second interval between the sets for a maximum of 2 sets) to improve pharyngeal swallow given fading verbal cues for form and pacing over x3-5 sessions Outcome: Ongoing Addressed hyolaryngeal elevation via Jaw Opening Exercise (BRAYDEN). Jaw Opening Exercise (BRAYDEN) is an evidence based isometric exercise to improve the suprahyoid muscle strength. Research has demonstrated that this training results in elevating the hyoid bone, elevating the UES, improving its opening, and decreasing the pharyngeal transit time. Training task involves isometric exercise, where the patient is asked to extend the jaw to its maximum and maintain this position for 10 seconds. Each exercise set consists of five repetitions with a 10-second interval between the sets for a maximum of 2 sets of 5. Patient was able to complete 1 reps today with max verbal cues for form and pacing to maximize benefit of exercise (e.g., patient attempting to close her mouth after holding for 1-2 seconds). Goal: Bolus challenge - Patient will accept trials of thin liquids x10-15 trials, given moderate cues for use of strategies to improve bolus control/timing of swallow initiation with no signs of aspiration to determine readiness for repeat study Outcome: Ongoing Not addressed this date given lethargy. Goal: Swallow Strategy (Oral)- Patient will utilize trained swallow strategies: multiple swallows, liquid wash during PO trials of puree solids/IDDSI 4 with moderate cues to demonstrate improved oral efficiency and readiness for repeat instrumental. Outcome: Ongoing Addressed dysphagia via direct bolus observation and instruction. Reviewed swallow strategies and their benefit with patient. She accepted x5 bites of pureed solids with x5 liquid wash of mildly thick liquids requiring max-total cues for use of strategies. Of note, slight bolus holding demonstrated requiring prompting for swallow initiation as well. Patient Education/Instruction Learners: Patient Education provided: Dysphagia risk factors, Dysphagia recommendations/impressions, Dysphagia recommendation risk: benefit analysis, Compensatory strategies for dysphagia Teaching method: Verbal Education/Instruction Learner response: No evidence of learning Learning preferences: Auditory Learning considerations: Speech expression, Speech comprehension Patient Instruction/Education comments: Reviewed SUPERVISOR OF INSTRUCTION purpose and POC. Plan for next session: 11/03: good, ongoing bolus challenge swallow and speech/language tx SUPERVISOR OF INSTRUCTION Outcomes: FOIS 1 Speech Language Pathologist: ULISES Lombardo Time In: 812 Time Out: 828 Total Visit Time: 16 minutes Total Treatment Time (skilled, billable minutes): 16 minutes Non-billable assistance during session: n/a Assisted by during session: SCA PPE used during patient interaction: gloves Patient location/status at end of session: bed with head of bed elevated Patient alarms at end of session: mitts, safety home care physical therapist present Needs in reach. SUPERVISOR OF INSTRUCTION Evaluation and Treatment Time Speech Therapy - Individual 11891: 8 Swallowing Dysfunction Treatment 41024: 8 Upon discontinuation of Acute Care Speech Therapy Services or patient discharge from the hospital this note represents the current Speech Therapy Discharge Summary NUTRITION FOLLOW-UP Nutrition Recommendations and Plan of Care: Continue TF of Osmolite 1.2 at 50 mL/hr. Free water per primary team. Recommend minimum of 30 mL q4 hours x 6 daily to maintain tube patency. Or, can provide 75 mL x 6/day q4 hours to meet hydration needs. Recommend decreasing bowel regimen. Monitor TF intake, TF tolerance, GI function, skin integrity, weight changes, and labs. RD to continue to follow. Per HPI, Behzad Hay is a 84 y.o. female with a history of A fib on eliquis (Last dose 10/18 AM), HTN, HLD who presented from [place] with L thalamic ICH. LKW 2100 10/17. Pt reportedly awoke at 0600 on 10/18 with some R sided weakness and was found by her home health aide at 0900 slumped against the wall with R sided weakness, R facial droop and dysarthria. CTH at OSH with L thalamic ICH. CTA at OSH with no acute abnormalities. Repeat CTH at [facility] with redemonstration of known L thalamic ICH and remote L MCA territory infarct. Nutrition History/Assessment: Pt last assessed by HU 10/26. RD recommended TF of Osmolite 1.2 at 50 mL/hr. Per JUN, TF held off and on 2/2 tube removal. Plans for PEG- has been unable to engage with SUPERVISOR OF INSTRUCTION. Answers no to all questions asked (I.e., N/V, diarrhea constipation, tolerating TF). ?accuracy. No family in room to speak with. Per pump, in the past week pt has received an average TF volume of 899 mL/day, providing 1079 kcal/day and meeting 83% of minimum kcal needs. Nutrition Focused Physical Exam: Nutrition Focused Physical Exam Completed?: deferred Reason For Deferral: mental status/inability to consent has no known allergies. Current Diet Orders Procedures DIET NPO AND TUBE FEEDING with meds Standing Status: Standing Number of Occurrences: 1 NPO Meds:: with meds Ht: 5' 0" Current Wt: 51.8 kg (114#) Admit Wt: 56.4 kg (124 lb 5.4 oz) IBW: 45.5 kg (100#) %IBW: 114% BMI: 22.3 Weight History: Using CBW, pt with potential 3% weight loss x ~2 weeks (equivalent to ~1.5% x 1 week which is considered nutritionally significant). Wt Readings from Last 20 Encounters: 10/19/24 56.4 kg (124 lb 5.4 oz) 10/12/24: 53.5 kg 10/04/24: 51.7 kg 04/26/24: 54 kg 10/27/23: 52.6 kg Weights Since Admit: 10/27: 51.8 kg - bed wt 10/24: 51.6 kg 10/18: 56.4 kg meds reviewed: Scheduled: Reviewed, includes Miralax (q12 hours), senna (q12 hours) Continuous: Reviewed, includes Osmolite Labs reviewed: Sodium Date Value Ref Range Status 10/31/2024 138 135 - 145 mmol/L Final Potassium Date Value Ref Range Status 10/31/2024 4.6 3.5 - 5.0 mmol/L Final Chloride Date Value Ref Range Status 10/31/2024 103 98 - 108 mmol/L Final CO2 Date Value Ref Range Status 10/31/2024 28 21 - 31 mmol/L Final BUN Date Value Ref Range Status 10/31/2024 33 (H) 7 - 25 mg/dL Final Creatinine Date Value Ref Range Status 10/31/2024 0.75 0.50 - 1.20 mg/dL Final Magnesium Date Value Ref Range Status 10/22/2024 2.2 1.6 - 2.6 mg/dL Final Phosphorous Date Value Ref Range Status 10/19/2024 2.9 2.2 - 4.6 mg/dL Final Albumin Date Value Ref Range Status 10/19/2024 3.9 3.5 - 5.0 g/dL Final Glucose (POC Device) Date Value Ref Range Status 11/01/2024 110 Nonfasting Glucose: 70-179 mg/dL Final Hemoglobin A1C HPLC Date Value Ref Range Status 10/18/2024 5.4 4.7 - 5.6 % Final Lab Results Component Value Date GLUCOSE 110 11/01/2024 GLUCOSE 122 11/01/2024 GLUCOSE 136 10/31/2024 GLUCOSE 138 10/31/2024 GLUCOSE 168 10/31/2024 GLUCOSE 146 10/31/2024 Lab Results Component Value Date HGBA1C 5.4 10/18/2024 GI: Last bm: 11/02 (Mcgregor Stool Scale Type 7); # bm past 2 24 hours: 13x/5x Enteral access: gastric small bore feeding tube Skin: Dani Score: 14 Edema- none documented Active Wounds: Wound 10/24/24 0800 Perineum (9) Wound Pressure Injury 11/01/24 0900 Posterior;Right Ankle (1) Wound Pressure Injury 11/01/24 0800 Left;Posterior Ankle (1) Respiratory: Oxygen therapy: room air I/O: +1.2L net since admit Cognitive Status: confused, Ox1, garbled/illogical speech Estimated Nutrition Needs: Weight Used: 52 kg (CBW) EEN: 3185-0477 kcal/day (25-30 kcal/kg) EPN: 62-78 g/day (1.2-1.5 g/kg) EFN: 1560 mL/day (30 mL/kg) or per primary team Malnutrition Statement: Does the patient meet criteria for malnutrition: Unable to assess *Based on [employer] Academy and ASPEN Indicators to Diagnose Malnutrition (AAIM) criteria (2012) Fadumo Stark MS, RD, LD, [facility] Pager #[phone] Speech Language Pathology Attempt Note 11/02/2024 SUPERVISOR OF INSTRUCTION Therapy Completed: (P) Attempted Attempted to see pt for swallow/speech treatment, however pt is currently not medically optimized (lethargic, just received sedating medications). Will re-attempt as able/appropriate. No charge. Attempted Reason: (P) Patient is not medically optimized to tolerate therapy program ULISES Lombardo Time In: (P) 0915 Time Out: (P) 0915 Total Visit Time: (P) 0 minutes Total Treatment Time (skilled, billable minutes): (P) 0 minutes Neurovascular Stroke Service Intracerebral Hemorrhage Note IDENTIFYING INFORMATION Behzad Hay MR# [id number] 11/02/2024 HISTORY OF PRESENT ILLNESS Behzad Hay is a 84 y.o. female with a history of A fib on eliquis (Last dose 10/18 AM), HTN, HLD who presented from [place] with L thalamic ICH. LKW 2100 10/17. Pt reportedly awoke at 0600 on 10/18 with some R sided weakness and was found by her home health aide at 0900 slumped against the wall with R sided weakness, R facial droop and dysarthria. NIHSS on arrival to [facility] ED 16 (2, 1 commands, 1 L gaze pref, 1 L facial droop, 2 R arm, 2 L leg, 3 R leg, 2 aphasia, 2 dysarthria). CTH at OSH with L thalamic IPH. CTA at OSH with no acute abnormalities . Repeat CTH at [facility] with redemonstration of known L thalamic ICH and remote L MCA territory infarct. BP on arrival 148/76. INTERVAL HISTORY 10/18: Admitted to [facility] for frequent neuro check 10/19: Transfer to [place] service 10/20: drowsy today after receiving Seroquel overnight, repeat CTH stable, increase metoprolol for afib RVR 10/21: improved exam today, SUPERVISOR OF INSTRUCTION re-eval pending, lisinopril increased to home dose 10/22: improved neuro exam however failed FEES, re-eval Monday 10/23: Seroquel/restraints ON for agitation. 10/24: Abd discomfort, urinary retention requiring straight cath 10/25: Held Lisinopril, pending MBS, has required sitter overnight, started on Aspirin today 10/26: A fib RVR last night, UA concerning for UTI, started on Ceftriaxone, started on Cardura for urinary retention, MBS today 10/27: MBS failed. DHT removed last night 2/2 clogging. GI c/s for PEG planning. 10/28: ROSE, complete atbx for UTI, GI recs for PEG planning pending, decrease lisinopril 10/29: self removed DHT this morning, billy mitt restraints applied, increase bowel regimen, hold lisinopril 10/30: Sitter at bedside. No acute events. 10/31: PEG likely next week. KUB in am per GI recs. 11/01: DTH removed/replaced. Tapia for retention/bladder rest. 11/02: Ampicillin for UTI. Sched. Seroque1 PHYSICAL EXAM Gen: alert, NAD HEENT: normocephalic, no scalp lesions or tenderness, PERRLA, EOMI Neck: trachea midline CV: NSR on monitor Lungs: Respirations unlabored with equal chest rise Abd: soft, nontender, nondistended Extrem: Warm and well perfused, no cyanosis, clubbing, edema Neuro: alert, expressive aphasia, garbled/incoherent with some intermittently clear, follows some simple commands, R hemiparesis CN II visual snyder full to confrontation without visual extinction CN III, IV, PERRL. Gaze midline CN V CN VII R facial droop CN VIII hearing grossly intact to voice CN IX & X Dysarthria/garbled speech CN XI shoulder shrug full strength bilaterally CNXII tongue protrudes midline MOTOR EXAMINATION: R hemiparesis NIHSS Provider NIH Stroke Scale NIH Interval (Provider): daily NIH Level of Conciousness (Provider): 0 NIH LOC Questions (Provider): 2 NIH LOC Commands (Provider): 0 NIH Best Gaze (Provider): 0 NIH Visual (Provider): 0 NIH Facial Palsy (Provider): 1 NIH Left Arm Motor (Provider): 0 NIH Right Arm Motor (Provider): 2 NIH Left Leg Motor (Provider): 0 NIH Right Leg Motor (Provider): 2 NIH Limb Ataxia (Provider): 0 NIH Sensory (Provider): 0 NIH Best Language (Provider): 2 NIH Dysarthria (Provider): 2 NIH Extinction and Inattention (Provider): 0 NIH Total Score (Provider): 11 Intracerebral Hemorrhage Volume ICH Volume Date of Scan: 10/18/24 Time of Scan: 1347 (A) Maximum Length (cm): 1.1 cm (B) Perpendicular Length (cm): 1.8 cm (C) Number of Slices: 3 (C) Slice Thickness (cm) : 0.5 cm ICH Volume (ml) (Calculated Score): 1.49 Intracerebral Hemorrhage Score Intracerebral Hemorrhage (ICH) Scale Paul Coma Scale Points: 1-->GCS 5-12 Age>/=80: 1-->yes Infratentorial Origin of Hemorrhage?: 0-->no ICH Volume >/= 30cm(3): 0-->no (less than 30cm(3)) Intraventricular Hemorrhage?: 0-->no ICH Score (Calculated): 2 Score 30 Day Mortality following ICH 0 0% Mortality 1 13% Mortality 2 26% Mortality 3 72% Mortality 4 97% Mortality 5 100% Mortality ASSESSMENT AND PLAN Neuro: Acute left BG ICH 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 CTA brain/neck: No acute findings 6 hr CTH:Stable exam. Acute left thalamic hemorrhage with mild surrounding vasogenic edema. 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 MRI brain: Left thalamic hemorrhage as noted on October 18, 2024 CT head.Punctate right occipital and left cerebellar acute infarcts. Remote left MCA territory infarct. CTH follow up: Stable left thalamic parenchymal hematoma with mildly increased edema. No significant mass effect TTE: EF 61%, LDL 73, A1c 5.4 Etiology: Likely hypertensive Antiplatelet plan: started Aspirin on 10/25 Anticoagulation plan: Referral for cardiology ordered for Watchman consideration as family/patient had already been considering prior to hemorrhagic stroke. If unable to get watchman, resume home Eliquis in 1 month post stroke (11/18) Blood pressure goal: normotension Hemorrhagic Stroke Core Measures -NHISS on admission 16 -Patient has been started on Mechanical (SCD's) and Pharmacological (SQ heparin) DVT prophylaxis started after stable HCT. -Antiplatelet therapy is not indicated. -Anticoagulation therapy not indicated in hemorrhagic stroke -Patients LDL 73 and HgbA1c 5.4 were checked -Dysphagia screening ordered, and will be completed prior to patient receiving oral intake. -Stroke education booklet has been provided both written and verbal education to the patient and family regarding hemorrhagic strokes. We have reviewed the patient's personal modifiable risk factors including: HTN, on eliquis as well as education on reducing these risk factors. -Patient is being assessed for Rehab by PT/OT/Speech and PM&R if indicated. Essential HTN - Home antihypertensives: lisinopril 10mg BID and metoprolol 25mg BID -Metoprolol 25mg BID - PRN labetalol and hydralazine 10/29: soft BPs, held lisinopril UTI: UA dirty on 10/26, completed Ceftriaxone for 3 days (end date: 10/28) -UA with bacteria 11/02: Start Ampicillin Agitation/delirium: -10/29 removed DHT, billy mitts and sitter ordered -DHT removed again 11/01 -11/02: Seroquel scheduled. GI will not place PEG until agitation managed Acute urinary retention -Started on Cardura on 10/25 evening -Tapia placed 11/01 for retention/bladder rest HLD -hold home atorvastatin 40mg due to elevated LFTs on admission, downtrended, likely resume at discharge Atrial Fibrillation - On home eliquis 2.5mg BID (LD 10/18 AM) --> held in setting of acute bleed - received Kcentra at OSH - continue metoprolol 25mg BID for rate control - Antiplatelet plan: plan to start Aspirin 81 mg post stroke day #10 (10/27/24) - Anticoagulation plan: Referral for cardiology ordered for Watchman consideration as family/patient had already been considering prior to hemorrhagic stroke. If unable to get watchman, resume home Eliquis in 1 month post stroke (11/18) Dysphagia: 2/2 stroke, FEES on 10/22 and MBS on 10/26 - Continue DHT and TF -10/28: seen by GI, plan for PEG next week, continue SUPERVISOR OF INSTRUCTION eval -11/02: GI deferring PEG until agitation managed. Seroquel scheduled Elevated LFTs (POA) - elevated on admit, repeat LFTs downtrended Fall Risk: Assessed for patient fall risk and discussed safety measures during rounding. Other problems: Complexity. Wound Documentation Wound 10/24/24 08 Perineum (Active) Date First Assessed/Time First Assessed: 10/24/24 08 Location: Perineum Wound Pressure Injury 11/01/24 09 Posterior;Right Ankle (Active) Date First Assessed/Time First Assessed: 11/01/24 09 Primary Wound Type: Pressure Injury Wound Location Orientation: Posterior;Right Location: Ankle Wound Pressure Injury 11/01/24 08 Left;Posterior Ankle (Active) Date First Assessed/Time First Assessed: 11/01/24 08 Primary Wound Type: Pressure Injury Wound Location Orientation: Left;Posterior Location: Ankle Any conditions listed below are present on admission unless otherwise specified. . Disposition: Behzad Hay will likely be discharged to pending medical readiness David Sutton, COMMUNITY RELATIONS OFFICER-AVIATION ELECTRONIC WARFARE OPERATOR 11/02/2024 7:10 AM VITAL SIGNS Temp: [97.4 F (36.3 C)-98.4 F (36.9 C)] 98 F (36.7 C) Pulse (Heart Rate): [82-105] 89 Resp Rate: [15-20] 17 BP: (96-122)/(56-78) 103/57 O2 Sat (%): [94 %-98 %] 94 % Oxygen Therapy: Oxygen Therapy O2 Sat (%): 94 % O2 Device: room air Intake/Output: Intake/Output Summary (Last 24 hours) at 11/02/2024 0710 Last data filed at 11/02/2024 0600 Gross per 24 hour Intake 1066 ml Output 1650 ml Net -584 ml LABS/CULTURES Lab Results Component Value Date WBC 7.20 10/31/2024 HGB 11.7 10/31/2024 HCT 36.7 10/31/2024 PLATELET 458 (H) 10/31/2024 MCV 96.8 10/31/2024 Lab Results Component Value Date SODIUM 138 10/31/2024 POTASSIUM 4.6 10/31/2024 CHLORIDE 103 10/31/2024 CO2 28 10/31/2024 BUN 33 (H) 10/31/2024 CREATSERUM 0.75 10/31/2024 GLUCOSE 110 11/01/2024 Lab Results Component Value Date CHOLESTEROL 140 10/18/2024 TRIG 106 10/18/2024 HDL 46 10/18/2024 LDLCALC 73 10/18/2024 Lab Results Component Value Date HGBA1C 5.4 10/18/2024 Lab Results Component Value Date ALBUMIN 3.9 10/19/2024 , No results found for: "CPK", TROP IMAGING/DIAGNOSTIC STUDIES MEDICATIONS aspirin 81 mg Oral Daily Or aspirin 300 mg Rectal Daily doxazosin 2 mg Per NG tube QHS heparin 5,000 Units Subcutaneous Q8H 0800/1600/2200 [Held by provider] Lisinopril 10 mg Per NG tube Daily Melatonin 6 mg Per NG tube Daily early evening Metoprolol 25 mg Per NG tube Q12H Polyethylene glycol 17 g Per NG tube Q12H Senna 17.2 mg Per NG tube Q12H Water liquid (free water) 30 mL Per NG tube Q4H REID Botello 11/02/2024 7:10 AM VITAL SIGNS Temp: [97.4 F (36.3 C)-98.4 F (36.9 C)] 98 F (36.7 C) Pulse (Heart Rate): [82-105] 89 Resp Rate: [15-20] 17 BP: (96-122)/(56-78) 103/57 O2 Sat (%): [94 %-98 %] 94 % IMAGING/DIAGNOSTIC STUDIES MEDICATIONS aspirin 81 mg Oral Daily Or aspirin 300 mg Rectal Daily doxazosin 2 mg Per NG tube QHS heparin 5,000 Units Subcutaneous Q8H 0800/1600/2200 [Held by provider] Lisinopril 10 mg Per NG tube Daily Melatonin 6 mg Per NG tube Daily early evening Metoprolol 25 mg Per NG tube Q12H Polyethylene glycol 17 g Per NG tube Q12H Senna 17.2 mg Per NG tube Q12H Water liquid (free water) 30 mL Per NG tube Q4H Cosigned by Ousmane Cantu DO at 11/02/2024 3:54 PM EDT Associated attestation - Ousmane Cantu DO - 11/02/2024 3:54 PM EDT I saw and independently examined the patient on 11/02/2024. I agree with the history, examination, and medical decision making as outlined. In addition, please see below. 84F w/ afib on eliquis. 10/18/24 awoke w/ R weakness. CTH/MRI w/ L thalamic ICH. CTA neg. TTE normal. LDL 73, A1c 5.4%. Exam: Awake but agitated and encephalopathic, makes few coherent words. RUE can lift against gravity. Other extremities intact. DOAC-related ICH. Hospital stay c/b delirium. Plan: Dysphagia and delirium - Suspect source of agitation is dobhoff tube however GI declining PEG due to agitation. Will start seroquel 12.5 bid to control agitation so she can get PEG. Will wean sitter and mitts after NG out. UTI - start ampicillin until culture speciates. Aspirin 81 for now, family interested in pursuing watchman as an outpatient. Dispo - SNF pending feeding plan. Ousmane Cantu D.O. Vascular Neurology [facility] Placement Plan Expected Discharge Date: TBD Referred Level of Care: SNF Barriers: Peg Tube placement, Insurance pre-certification Current Referrals and Status [facility] - Under Review 2. [facility] - Available (pending Peg Tube placement) [facility] - Under Review Pending PEG Tube placement. Continues to have sitter. CM will continue to follow and assist with discharge planning. Addendum:4:03 PM CM met with patient's daughter at bedside and reviewed current SNF list - 1st choice would be [facility] and 2nd choice [facility]. CM did explain that [facility] had offically denied. PAM Fleming, [place] Communication Consultant Available by Secure Chat Speech Language Pathology Attempt Note 11/01/2024 SUPERVISOR OF INSTRUCTION Therapy Completed: Attempted; pt asleep upon entry and unable to rouse despite max verbal/tactile cues. ULISES Leos Time In: 952 Time Out: 955 Total Visit Time: 3 minutes Total Treatment Time (skilled, billable minutes): 0 minutes Neurovascular Stroke Service Intracerebral Hemorrhage Note IDENTIFYING INFORMATION Behzad Hay MR# [id number] 11/01/2024 HISTORY OF PRESENT ILLNESS Behzad Hay is a 84 y.o. female with a history of A fib on eliquis (Last dose 10/18 AM), HTN, HLD who presented from [place] with L thalamic ICH. LKW 2100 10/17. Pt reportedly awoke at 0600 on 10/18 with some R sided weakness and was found by her home health aide at 0900 slumped against the wall with R sided weakness, R facial droop and dysarthria. NIHSS on arrival to [facility] ED 16 (2, 1 commands, 1 L gaze pref, 1 L facial droop, 2 R arm, 2 L leg, 3 R leg, 2 aphasia, 2 dysarthria). CTH at OSH with L thalamic IPH. CTA at OSH with no acute abnormalities . Repeat CTH at [facility] with redemonstration of known L thalamic ICH and remote L MCA territory infarct. BP on arrival 148/76. INTERVAL HISTORY 10/18: Admitted to [facility] for frequent neuro check 10/19: Transfer to [place] service 10/20: drowsy today after receiving Seroquel overnight, repeat CTH stable, increase metoprolol for afib RVR 10/21: improved exam today, SUPERVISOR OF INSTRUCTION re-eval pending, lisinopril increased to home dose 10/22: improved neuro exam however failed FEES, re-eval Monday 10/23: Seroquel/restraints ON for agitation. 10/24: Abd discomfort, urinary retention requiring straight cath 10/25: Held Lisinopril, pending MBS, has required sitter overnight, started on Aspirin today 10/26: A fib RVR last night, UA concerning for UTI, started on Ceftriaxone, started on Cardura for urinary retention, MBS today 10/27: MBS failed. DHT removed last night 2/2 clogging. GI c/s for PEG planning. 10/28: ROSE, complete atbx for UTI, GI recs for PEG planning pending, decrease lisinopril 10/29: self removed DHT this morning, billy mitt restraints applied, increase bowel regimen, hold lisinopril 10/30: Sitter at bedside. No acute events. 10/31: PEG likely next week. KUB in am per GI recs. 11/01: DTH removed/replaced. Tapia for retention/bladder rest. PHYSICAL EXAM Gen: alert, NAD HEENT: normocephalic, no scalp lesions or tenderness, PERRLA, EOMI Neck: trachea midline CV: NSR on monitor Lungs: Respirations unlabored with equal chest rise Abd: soft, nontender, nondistended Extrem: Warm and well perfused, no cyanosis, clubbing, edema Neuro: alert, expressive aphasia, garbled/incoherent with some intermittently clear, follows some simple commands, R hemiparesis CN II visual snyder full to confrontation without visual extinction CN III, IV, PERRL. Gaze midline CN V CN VII R facial droop CN VIII hearing grossly intact to voice CN IX & X Dysarthria/garbled speech CN XI shoulder shrug full strength bilaterally CNXII tongue protrudes midline MOTOR EXAMINATION: R hemiparesis NIHSS Provider NIH Stroke Scale NIH Interval (Provider): daily NIH Level of Conciousness (Provider): 0 NIH LOC Questions (Provider): 2 NIH LOC Commands (Provider): 0 NIH Best Gaze (Provider): 0 NIH Visual (Provider): 0 NIH Facial Palsy (Provider): 1 NIH Left Arm Motor (Provider): 0 NIH Right Arm Motor (Provider): 2 NIH Left Leg Motor (Provider): 0 NIH Right Leg Motor (Provider): 2 NIH Limb Ataxia (Provider): 0 NIH Sensory (Provider): 0 NIH Best Language (Provider): 2 NIH Dysarthria (Provider): 2 NIH Extinction and Inattention (Provider): 0 NIH Total Score (Provider): 11 Intracerebral Hemorrhage Volume ICH Volume Date of Scan: 10/18/24 Time of Scan: 1347 (A) Maximum Length (cm): 1.1 cm (B) Perpendicular Length (cm): 1.8 cm (C) Number of Slices: 3 (C) Slice Thickness (cm) : 0.5 cm ICH Volume (ml) (Calculated Score): 1.49 Intracerebral Hemorrhage Score Intracerebral Hemorrhage (ICH) Scale Paul Coma Scale Points: 1-->GCS 5-12 Age>/=80: 1-->yes Infratentorial Origin of Hemorrhage?: 0-->no ICH Volume >/= 30cm(3): 0-->no (less than 30cm(3)) Intraventricular Hemorrhage?: 0-->no ICH Score (Calculated): 2 Score 30 Day Mortality following ICH 0 0% Mortality 1 13% Mortality 2 26% Mortality 3 72% Mortality 4 97% Mortality 5 100% Mortality ASSESSMENT AND PLAN Neuro: Acute left BG ICH 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 CTA brain/neck: No acute findings 6 hr CTH:Stable exam. Acute left thalamic hemorrhage with mild surrounding vasogenic edema. 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 MRI brain: Left thalamic hemorrhage as noted on October 18, 2024 CT head.Punctate right occipital and left cerebellar acute infarcts. Remote left MCA territory infarct. CTH follow up: Stable left thalamic parenchymal hematoma with mildly increased edema. No significant mass effect TTE: EF 61%, LDL 73, A1c 5.4 Etiology: Likely hypertensive Antiplatelet plan: started Aspirin on 10/25 Anticoagulation plan: Referral for cardiology ordered for Watchman consideration as family/patient had already been considering prior to hemorrhagic stroke. If unable to get watchman, resume home Eliquis in 1 month post stroke (11/18) Blood pressure goal: normotension Hemorrhagic Stroke Core Measures -NCISS on admission 16 -Patient has been started on Mechanical (SCD's) and Pharmacological (SQ heparin) DVT prophylaxis started after stable HCT. -Antiplatelet therapy is not indicated. -Anticoagulation therapy not indicated in hemorrhagic stroke -Patients LDL 73 and HgbA1c 5.4 were checked -Dysphagia screening ordered, and will be completed prior to patient receiving oral intake. -Stroke education booklet has been provided both written and verbal education to the patient and family regarding hemorrhagic strokes. We have reviewed the patient's personal modifiable risk factors including: HTN, on eliquis as well as education on reducing these risk factors. -Patient is being assessed for Rehab by PT/OT/Speech and PM&R if indicated. Essential HTN - Home antihypertensives: lisinopril 10mg BID and metoprolol 25mg BID -Metoprolol 25mg BID - PRN labetalol and hydralazine 10/29: soft BPs, held lisinopril UTI: UA dirty on 10/26, completed Ceftriaxone for 3 days (end date: 10/28) Agitation/delirium: 10/29 removed DHT, billy mitts and sitter ordered -Intermittent Seroquel required Acute urinary retention -Started on Cardura on 10/25 evening -Tapia placed 11/01 for retention/bladder rest HLD -hold home atorvastatin 40mg due to elevated LFTs on admission, downtrended, likely resume at discharge Atrial Fibrillation - On home eliquis 2.5mg BID (LD 7/ AM) --> held in setting of acute bleed - received Kcentra at OSH - continue metoprolol 25mg BID for rate control - Antiplatelet plan: plan to start Aspirin 81 mg post stroke day #10 (10/27/24) - Anticoagulation plan: Referral for cardiology ordered for Watchman consideration as family/patient had already been considering prior to hemorrhagic stroke. If unable to get watchman, resume home Eliquis in 1 month post stroke (11/18) Dysphagia: 2/2 stroke, FEES on 10/22 and MBS on 10/26 - Continue DHT and TF -10/28: seen by GI, plan for PEG next week, continue SUPERVISOR OF INSTRUCTION eval Elevated LFTs (POA) - elevated on admit, repeat LFTs downtrended Fall Risk: Assessed for patient fall risk and discussed safety measures during rounding. Other problems: Complexity. Wound Documentation Wound 10/24/24799 Perineum (Active) Date First Assessed/Time First Assessed: 10/24/24 08 Location: Perineum Any conditions listed below are present on admission unless otherwise specified. . Disposition: Behzad Hay will likely be discharged to pending medical readiness David Sutton APRN-AVIATION ELECTRONIC WARFARE OPERATOR 11/01/2024 3:08 PM VITAL SIGNS Temp: [97.4 F (36.3 C)-98.7 F (37.1 C)] 97.4 F (36.3 C) Pulse (Heart Rate): [79-94] 88 Resp Rate: [18] 18 BP: (111-123)/(59-71) 118/69 O2 Sat (%): [97 %-98 %] 98 % Oxygen Therapy: Oxygen Therapy O2 Sat (%): 98 % O2 Device: room air Intake/Output: Intake/Output Summary (Last 24 hours) at 11/01/2024 1508 Last data filed at 11/01/2024 0335 Gross per 24 hour Intake 1268 ml Output 500 ml Net 768 ml LABS/CULTURES Lab Results Component Value Date WBC 7.20 10/31/2024 HGB 11.7 10/31/2024 HCT 36.7 10/31/2024 PLATELET 458 (H) 10/31/2024 MCV 96.8 10/31/2024 Lab Results Component Value Date SODIUM 138 10/31/2024 POTASSIUM 4.6 10/31/2024 CHLORIDE 103 10/31/2024 CO2 28 10/31/2024 BUN 33 (H) 10/31/2024 CREATSERUM 0.75 10/31/2024 GLUCOSE 110 11/01/2024 Lab Results Component Value Date CHOLESTEROL 140 10/18/2024 TRIG 106 10/18/2024 HDL 46 10/18/2024 LDLCALC 73 10/18/2024 Lab Results Component Value Date HGBA1C 5.4 10/18/2024 Lab Results Component Value Date ALBUMIN 3.9 10/19/2024 , No results found for: "CPK", TROP IMAGING/DIAGNOSTIC STUDIES MEDICATIONS aspirin 81 mg Oral Daily Or aspirin 300 mg Rectal Daily doxazosin 2 mg Oral QHS heparin 5,000 Units Subcutaneous Q8H 0800/1600/2200 [Held by provider] Lisinopril 10 mg Per NG tube Daily Melatonin 6 mg Oral Daily early evening Metoprolol 25 mg Per NG tube Q12H Polyethylene glycol 17 g Per NG tube Q12H QUEtiapine 12.5 mg Per NG tube Once Senna 17.2 mg Per NG tube Q12H Water liquid (free water) 30 mL Per NG tube Q4H David Sutton APRN-NICO 11/01/2024 3:08 PM VITAL SIGNS Temp: [97.4 F (36.3 C)-98.7 F (37.1 C)] 97.4 F (36.3 C) Pulse (Heart Rate): [79-94] 88 Resp Rate: [18] 18 BP: (111-123)/(59-71) 118/69 O2 Sat (%): [97 %-98 %] 98 % IMAGING/DIAGNOSTIC STUDIES MEDICATIONS aspirin 81 mg Oral Daily Or aspirin 300 mg Rectal Daily doxazosin 2 mg Oral QHS heparin 5,000 Units Subcutaneous Q8H 0800/1600/2200 [Held by provider] Lisinopril 10 mg Per NG tube Daily Melatonin 6 mg Oral Daily early evening Metoprolol 25 mg Per NG tube Q12H Polyethylene glycol 17 g Per NG tube Q12H QUEtiapine 12.5 mg Per NG tube Once Senna 17.2 mg Per NG tube Q12H Water liquid (free water) 30 mL Per NG tube Q4H Cosigned by Ousmane Cantu DO at 11/01/2024 4:57 PM EDT Associated attestation - Ousmane Cantu, - 11/01/2024 4:57 PM EDT I saw and independently examined the patient on 11/01/2024. I agree with the history, examination, and medical decision making as outlined. In addition, please see below. 84F w/ afib on eliquis. 10/18/24 awoke w/ R weakness. CTH/MRI w/ L thalamic ICH. CTA neg. TTE normal. LDL 73, A1c 5.4%. Exam: Awake but agitated and encephalopathic, makes few coherent words. RUE can lift against gravity. Other extremities intact. DOAC-related ICH. Hospital stay c/b delirium. Hospital stay c/b delirium. Plan: Dysphagia - PEG today. Will wean sitter and mitts after NG out. Delirium precautions. Aspirin 81 for now, family interested in pursuing watchman as an outpatient. Ousmane Cantu D.O. Vascular Neurology [facility] Acute Physical Therapy Treatment Prior Gross Functional Mobility: needs assist Current AM-PAC score(s): CURRENT AM-PAC Mobility Raw Score: 6 Based on the above AM-PAC score(s) and PT clinical judgment, patient is a good candidate for discharge to Longterm Facility Barriers to discharge home: Patient needs assistance with functional mobility Mobility equipment available at home: ADL equipment available at home: shower chair, grab bars Equipment needed for discharge: to be determined Current therapy frequency recommendation in acute: PT Therapy Frequency: 5 times a week Activity Recommendations for outside of rehab session: 2 person pivot vs mayra Precautions and Weightbearing Status: Existing Precautions/Restrictions: fall Patient Safety Communication Prior to Visit: Nursing Subjective: Pt was agreeable to participate, delayed procressing Pain: General Pain Documentation (Adult, OB, Peds) Presence of Pain: not present: non-verbal indicator of pain/discomfort Presence of Pain Score (Auto-calculated): 0 Objective/Observation: Vitals/Vitals Responses to Treatment: WFL O2 Device: room air Cognition Overall Cognitive Status: Impaired Arousal/Alertness: Delayed responses to stimuli Orientation Level: Oriented to person Following Commands: Follows commands 25-50% of the time Safety Judgment: Decreased awareness of need for assistance, Decreased awareness of need for safety Extremity Assessments: See PT Evaluation flowsheet for Extremity Measurement updates. Skin and Edema: Balance: Sitting Balance Static Sitting-Level of Assistance: (mod/max) Dynamic Sitting-Level of Assistance: Maximum assistance Skilled Rationale: Positioning, Sequencing, Hand placement, Verbal cues, Full extension to upright positioning/posture, Finding/maintaining midline positioning Sitting Balance Skilled Intervention/Details: Pt completed EOB sitting with varying levels of assist from contact guard to mod assist during static sitting. During true static sitting with bilateral UE/LE support and no further task patient able to achieve and maintain sitting with contact guard assist for up to 1 minute before requiring increasing assist due to retro leaning and LOB. Pt required increasing assist to mod/max assist during all EOB sitting task with use of UE and unable to use UE for balance Standing Balance Static Standing-Level of Assistance: Maximum assistance, 2-person assist Standing-Balance Support: Gait belt Skilled Rationale: Positioning, Sequencing, Hand placement, Verbal cues Standing Balance Skilled Intervention/Details: Partial standing with max assist of 2 and arm and arm assist, blocking of bilateral feet and knees Mobility Assessment/Intervention: Supine to Sit Mobility Kirvin Level: Supine->Sit: maximum assist (25% patient effort) Physical Assist: Supine->Sit: 2 person assist Bed Features/Set-up: Supine->Sit: Head of bed elevated Skilled Rationale: Positioning, Hand placement, Verbal cues, Sequencing Skilled Intervention/Details: Supine->Sit: pt assisted with movement of LEs towar EOB Transfer Assessment/Intervention: Sit to Stand Transfer Kirvin Level: Sit->Stand: dependent (less than 25% patient effort) Physical Assist: Sit->Stand: 2 person assist Assistive Device: Sit->Stand: gait belt, hand held assist Skilled Rationale: Positioning, Sequencing, Hand placement, Verbal cues Skilled Intervention/Details: Sit->Stand: x1 from EOB Bed-Chair Transfer Kirvin Level: Bed<->Chair: dependent (less than 25% patient effort) Physical Assist: Bed<->Chair: 2 person assist Assistive Device: Bed<->Chair: gait belt, hand held assist Skilled Rationale: Positioning, Hand placement, Verbal cues, Sequencing Skilled Intervention/Details: Bed<->Chair: modified stand pivot transfers Gait/Functional Mobility Assessment/Intervention: Stairs Assessment/Intervention: Outcome Score(s): CURRENT [facility] Basic Mobility Inpatient Short Form Turning over in bed: 1 - Total Assistance Moving from lying on back to sittin - Total Assistance Moving to and from bed to chair: 1 - Total Assistance Sitting/standing from chair: 1 - Total Assistance Walk in hospital room: 1 - Total Assistance Climbing 3-5 steps with a railin - Total Assistance CURRENT [facility] Mobility Raw Score: 6 CURRENT [facility] Mobility Functional Limitation: 100.00% Impaired in Basic Mobility Interventions: Assessment & Plan: Patient Instruction/Education this session: Learners: Patient Education provided: Activity outside of therapy, Discharge recommendations, Fall precautions Plan for next session: continue to progress sitting/standing balance, transfres Acute PT Goals Plan of Care by Crystal Desouza PT at 10/29/2024 2:34 PM Version 1 of 1 Problem: PT - General Goals Goal: Supine <-> Sit Transfers - Patient will perform supine to/from sit transfers with contact guard assistance and with use of hospital bed features in order to improve functional mobility and safety. Outcome: Progressing Goal: Sit <-> Stand Transfers - Patient will perform sit to/from stand transfers with minimal assistance and least restrictive device in order to improve functional mobility and safety. Outcome: Progressing Goal: Standing Endurance/Balance - Patient will perform standing balance tasks for 8 min with minimal assistance and least restrictive device Outcome: Progressing PT treatment consisted of the following to progress towards the above goal(s): PT Evaluation and Treatment Time Neuromuscular Re-Education Time Entry: 23 Treating Therapist: Crystal Desouza PT Additional Details: PT Co-Eval/Treatment Information Co-evaluation/co-treatment performed?: Yes, simultaneous billable skilled care was necessary due to medical complexity and functional deficits Other discipline: OT Rationale for need to co-eval/treat: coordination, postural control, alertness/arousal, cognition Co-treatment goal focus: balance, mobility PPE used during patient interaction: gloves Patient location at end of session: chair Alarms on at end of session: chair alarm, RN aware Needs in reach. Time In: 1034 Time Out: 1057 Total Visit Time: 23 minutes Total Treatment Time (skilled, billable minutes): 23 minutes Upon discontinuation of Acute Care Physical Therapy Services or patient discharge from the hospital this note represents the current Physical Therapy Discharge Summary. Placement Plan Expected Discharge Date: TBD Referred Level of Care: SNF Barriers: Medical Readiness, Insurance Pre-cert Current Referrals and Status [facility] - Viewed [facility] - Under Review [facility] - Under Review CM uploaded currently clinical to [facility] - patient currently has no accepting SNFs due to pending Nutritional Plan. GI Consulted. CM extended timer until Friday. PAM Fleming, MECHANICAL PRODUCT DESIGN ENGINEER Communication Consultant Available by Secure Chat Acute Care Speech Language Pathology Treatment Diet Recommendations: Recommended Method of Nutrition: NPO, no oral diet recommended Recommended Medication Administration (as appropriate per MD): Non-Oral Type of Cues/Supervision: total assistance (ice chips/sips of water following thorough oral care) Assistance: nurse/aide *Consider limited ice chips and tsp sips of water following oral care, given strict 1:1 family, RN, sitter supervision to assist in secretions clearance and reduce risk of disuse atrophy. *To prevent potential development of aspiration pneumonia/nosocomial infections, RECOMMEND: Oral care routine q4h and HOB upright as tolerated Best mode of Communication: spoken language Communication Strategies: -Ask conflicting yes/no questions (I.e. "Are you in pain?" followed by "Are you comfortable?") to ensure accurate response. -Provide pt options in field of 2. -Encourage use of intelligibility strategies: (SOS) Speak Up Over exaggerate / over pronounce sounds Slow down Discharge Recommendations: Based on the below outcome measures/assessment score(s), and SUPERVISOR OF INSTRUCTION clinical judgment, discharge destination recommendation is: Longterm Facility Barriers to discharge home: Inability to communicate basic wants/needs, Need for 1:1 assist to ensure safety with all PO intake Supporting factors for discharge setting: Impaired speech and language skills limiting ability to communicate basic wants/needs, Impaired swallow function limiting nutritional status and safety with oral intake Acute SUPERVISOR OF INSTRUCTION Outcomes Tracking Communicate basic wants and needs?: no Basic wants and needs - Details: (expressive/receptive deficits impacting) Demo insight/appreciation of deficits?: unable to determine Complete basic problem solving?: unable to determine Current therapy frequency recommendation in acute: Speech/Lang/Cog Therapy Frequency: 3 times a week Swallow Therapy Frequency: 5 times a week Clinical Impression: Patient presents with known moderate oropharyngeal dysphagia as observed on MBS completed 10/26, s/p acute L thalamic IPH, 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 Bolus challenge swallows initiated this visit following oral care with suction toothbrush. Patient requiring consistent mod/max cueing to utilize swallow strategies of double swallow and liquid wash. Minimal trials presented as lethargy/fatigue impacting level of appropriateness. Recommend continue NPO with meds via non-oral route. Consider allowance of ice chips/sips of water following oral care with 1:1 staff supervision for comfort and to reduce risk of disuse atrophy. SUPERVISOR OF INSTRUCTION will continue to follow for dysphagia intervention. 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 The above continues to impact ability to communicate basic wants/needs. Continues to benefit from phonemic cueing, modeling, and redirections for improved accuracy. Lethargy/fatigue appearing to impact participation in structured yes/no questions this visit. SUPERVISOR OF INSTRUCTION will continue to follow to address the above deficits to optimize functional recovery. Subjective information: Patient sitting upright in chair at bedside asleep. Awakened given verbal/tactile stim. Agreeable to session. SCA present at bedside. Pain: General Pain Documentation (Adult, OB, Peds) Presence of Pain: not present: non-verbal indicator of pain/discomfort Presence of Pain Score (Auto-calculated): 0 Precautions: Patient Safety Communication Prior to Visit: Nursing Lines/Tubes/Drains (Rehab Status): Telemetry Existing Precautions/Restrictions: fall Respiratory Status: Room Air Acute SUPERVISOR OF INSTRUCTION Goals Plan of Care by ULISES Leija at 10/29/2024 11:16 AM Version 1 of 1 Problem: SUPERVISOR OF INSTRUCTION - Language Goal: Command Following - Patient will complete 1-step commands with 75% accuracy with no cues in order to improve direction following for functional gains in ability to participate more independently in care Outcome: Ongoing Tx: Patient followed basic structured commands with ~33% accuracy independently, improving to ~66% accuracy given mod/max cueing and modeling from clinician. Continue to anticipate apraxia component largely impacting accuracy with command following. Continue goal. Goal: Yes/No Response - Patient will answer yes/no questions related to current situation/environment with 90% accuracy with no cues in order to improve ability to answer questions related to care Outcome: Ongoing Tx: Appearing lethargy/fatigue significantly impacting accuracy of yes/no question response given basic questions presented this visit. ~50% accuracy observed with intermittent repetition of questions presented. Max cueing required for nonverbal and verbal yes/no responses due to patient mumbling with jargon output intermittently. Goal: Name Basic Objects/Pictures - Patient will name basic objects/pictures with 75% accuracy, with fading cues in order to improve word-finding and functional communication Outcome: Ongoing Did not assess this visit. Goal: Object Identification by Name - Patient will complete identification tasks to select target item by name in field of 2 in 75% of opportunities with fading cues in order to demonstrate readiness for augmentative and alternative communication. Outcome: Ongoing Did not assess this visit. Problem: Dysphagia Goal: BRAYDEN- Patient will complete isometric exercises (5 repetitions with a 10-second interval between the sets for a maximum of 2 sets) to improve pharyngeal swallow given fading verbal cues for form and pacing over x3-5 sessions Outcome: Ongoing Did not assess this visit. Goal: Bolus challenge - Patient will accept trials of thin liquids x10-15 trials, given moderate cues for use of strategies to improve bolus control/timing of swallow initiation with no signs of aspiration to determine readiness for repeat study Outcome: Ongoing Did not assess this visit. Goal: Swallow Strategy (Oral)- Patient will utilize trained swallow strategies: multiple swallows, liquid wash during PO trials of puree solids/IDDSI 4 with moderate cues to demonstrate improved oral efficiency and readiness for repeat instrumental. Outcome: Ongoing Tx: Oral care with suction toothbrush completed prior to and following trials presented. Patient consumed trials of puree via tsp x3 with subsequent use of moderately thick wash via tsp x6. Observed slight extended oral manipulation with puree trials. Required consistent mod/max cues for use of double swallow following all trials. Patient inconsistently following cueing for this. Total assist for use of liquid wash following puree trials. Intermittent audible swallows across both consistencies. No s/s of aspiration observed. Further trials deferred as patient requiring cueing to remain with eyes open and for anticipatory stage of swallow, deeming further session deemed not appropriate. Continue goal. Patient Education/Instruction Learners: Patient Education provided: Role of this discipline, Plan of care, Dysphagia recommendations/impressions Teaching method: Verbal Education/Instruction Learner response: No evidence of learning Learning preferences: Auditory Learning considerations: Speech expression, Speech comprehension Stroke education: Role of rehabilitation discipline Plan for next session: 10/29: ongoing bolus challenge swallows and speech/language tx SUPERVISOR OF INSTRUCTION Outcomes: FOIS 1 Speech Language Pathologist: ULISES Leija Time In: 1116 Time Out: 1135 Total Visit Time: 19 minutes Total Treatment Time (skilled, billable minutes): 19 minutes Non-billable assistance during session: n/a Assisted by during session: n/a PPE used during patient interaction: gloves, facemask Patient location/status at end of session: chair (SCA present at bedside) Patient alarms at end of session: none altered, mitts, safety home care physical therapist present Needs in reach. SUPERVISOR OF INSTRUCTION Evaluation and Treatment Time Speech Therapy - Individual 53977: 9 Swallowing Dysfunction Treatment 13173: 10 Upon discontinuation of Acute Care Speech Therapy Services or patient discharge from the hospital this note represents the current Speech Therapy Discharge Summary Acute Occupational Therapy Treatment Prior Gross Functional Mobility: needs assist Current AM-PAC score(s): CURRENT AM-PAC Activity Raw Score: 9 Based on the above AM-PAC score(s), and OT clinical judgment, discharge destination recommendation is: Longterm Facility Barriers to discharge home: Patient needs assistance with ADLs, Patient needs assistance with IADLs (see note below) Mobility equipment available at home: ADL equipment available at home: shower chair, grab bars Equipment recommendations for discharge: Equipment issued: none Current therapy frequency recommendation(s) in acute: 5 times a week Precautions and Weightbearing Status: OT Existing Precautions/Restrictions: fall Lines/Tubes/Drains (Rehab Status): Telemetry Patient Safety Communication Prior to Visit: Nursing Subjective: Smiling throughout, but signifcantly limited by aphasia Pain: General Pain Documentation (Adult, OB, Peds) Presence of Pain: not present: non-verbal indicator of pain/discomfort Presence of Pain Score (Auto-calculated): 0 Objective/Observation: Vitals/Vitals Responses to Treatment: VSS Cognition Overall Cognitive Status: Impaired Arousal/Alertness: Delayed responses to stimuli Orientation Level: Oriented to person, Oriented to place Following Commands: Follows commands less than 25% of the time Safety Judgment: Decreased awareness of need for assistance, Decreased awareness of need for safety Awareness of Errors: Assistance required to identify errors made, Assistance required to correct errors made Deficits: Decreased awareness of deficits ADL Assessment/Intervention: ADLs: ADL Assessment: Grooming Deficit Grooming Assistance: Maximal Grooming Location: edge of bed Grooming Deficit: Activity tolerance, Generalized weakness, Increased time to complete, Retrieval of items, Balance Grooming Skilled Rationale (Verbal/Tactile/Visual/Demonstrat ion): Setup, Supervision, Cues for increased safety, Technique of activity, Cues for cognitive deficit Grooming Intervention/Details: max increased time and hand over hand assist to initate washing face, brushing teeth, combing hair. Completed with both MICHAEL and MAGGY this session Balance: Sitting Balance Static Sitting-Level of Assistance: Moderate assistance (to moments of true static sitting with contact guard assist) Dynamic Sitting-Level of Assistance: Maximum assistance Skilled Rationale: Verbal cues, Hand placement Sitting Balance Skilled Intervention/Details: Retropulsive and appeared to have attempts to correct with time and cueing Standing Balance Static Standing-Level of Assistance: Maximum assistance Dynamic Standing-Level of Assistance: Maximum assistance Standing-Balance Support: Gait belt Skilled Rationale: Verbal cues, Hand placement Mobility Assessment/Intervention: Supine to Sit Mobility Kirvin Level: Supine->Sit: maximum assist (25% patient effort) Physical Assist: Supine->Sit: 2 person assist Bed Features/Set-up: Supine->Sit: Head of bed elevated Skilled Rationale: Verbal cues, Tactile cues, Hand placement Skilled Intervention/Details: Supine->Sit: able to initaite transfer Transfer Assessment/Intervention: Sit to Stand Transfer Kirvin Level: Sit->Stand: dependent (less than 25% patient effort) Physical Assist: Sit->Stand: 2 person assist Assistive Device: Sit->Stand: gait belt Skilled Rationale: Verbal cues, Tactile cues, Visual cues Skilled Intervention/Details: Sit->Stand: max cues for upright posture and hand placement Bed-Chair Transfer Kirvin Level: Bed<->Chair: dependent (less than 25% patient effort) Physical Assist: Bed<->Chair: 2 person assist Assistive Device: Bed<->Chair: gait belt Skilled Rationale: Verbal cues, Tactile cues, Visual cues, Hand placement CURRENT [facility] Daily Activity Inpatient Short Form Putting on/Taking Off Lower Body Clothin - Total Assistance Bathin - A Lot of Assistance Toiletin - Total Assistance Putting on/Taking Off Upper Body Clothin - A Lot of Assistance Groomin - A Lot of Assistance Eatin - Total Assistance CURRENT [facility] Activity Raw Score: 9 CURRENT [facility] Activity Functional Limitation/Modifier: 79.59% Currently Impaired in Daily Activity - CL Interventions: Intervention 1 Intervention Name: Command following Details: Completed single step command following this session wtih 25-50% accuracy this session and increased time for processing. Completed to address participation in ADls Assessment & Plan: Pt with limited progress towards goals. Increased assist for balance this session at EOB but able to achieve midline posture but no distractions at that time. Increased assist required for ADLs and hand over hand assist to initate and increased weakness noted in R hand. Due to no goals met would benefit from continued OT services Patient Instruction/Education this session: Learners: Patient Education provided: Activity outside of therapy Teaching method: Verbal Education/Instruction Learner response: Needs review Plan for next session: Address EOb balance and use of RUE Acute OT Goals Plan of Care by Molly Wagner OT at 10/29/2024 11:27 AM Version 1 of 1 Problem: OT - ADLs Goal: Grooming - Patient will complete grooming edge of bed with minimal assistance for improved ability to safely complete ADLs. Outcome: Progressing Problem: OT - Transfers Goal: Transfers Toilet/ Bedside Commode - Patient will transfer to/from toilet/bedside commode with minimal assistance for improved ability to safely complete ADLs. Outcome: Progressing Problem: OT - Strength/ROM Goal: Neuro Re-education - Patient will participate in neuro re-ed of right upper extremity with minimal assistance and 75% accuracy for improved functional use in ADLs. Outcome: Progressing Problem: OT - Cognition Goal: Cognition Simple ADL - Patient will demonstrate improved cognition, completing simple ADL task for 5 minutes with no greater than min cues required to maintain attention. Outcome: Progressing Problem: OT - Vision Goal: Visual Scanning ADL - Patient will employ use of visual compensatory strategies with no greater than min cues in 5/5 trials to increase participation and safety in ADLs. Outcome: Progressing OT treatment consisted of the following to work and progress towards the above goal(s): OT Evaluation and Treatment Time Self Care/Home Management (ADLs) Time Entry: 13 Neuromuscular Re-Education Time Entry: 10 Treating Therapist: Molly Wagner OT Additional Details: OT Co-Eval/Treatment Information Co-evaluation/co-treatment performed?: Yes, simultaneous billable skilled care was necessary due to medical complexity and functional deficits Other discipline: PT Rationale for need to co-eval/treat: postural control, cognition Co-treatment goal focus: balance, mobility, self-care PPE used during patient interaction: gloves Patient location at end of session: chair Alarms on at end of session: chair alarm Needs in reach. Time In: 1034 Time Out: 1057 Total Visit Time: 23 minutes Total Treatment Time (skilled, billable minutes): 23 minutes Upon discontinuation of Acute Care Occupational Therapy Services or patient discharge from the hospital this note represents the current Occupational Therapy Discharge Summary. Acute Physical Therapy Treatment Prior Gross Functional Mobility: needs assist Current AM-PAC score(s): CURRENT AM-PAC Mobility Raw Score: 6 Based on the above AM-PAC score(s) and PT clinical judgment, patient is a good candidate for discharge to Longterm Facility Barriers to discharge home: Patient needs assistance with functional mobility Mobility equipment available at home: ADL equipment available at home: shower chair, grab bars Equipment needed for discharge: to be determined Current therapy frequency recommendation in acute: PT Therapy Frequency: 5 times a week Precautions and Weightbearing Status: Existing Precautions/Restrictions: fall Patient Safety Communication Prior to Visit: Nursing Subjective: pt was agreeable to participate Pain: General Pain Documentation (Adult, OB, Peds) Presence of Pain: denies pain/discomfort Presence of Pain Score (Auto-calculated): 0 Objective/Observation: Vitals/Vitals Responses to Treatment: WFL O2 Device: room air Cognition Overall Cognitive Status: Impaired Arousal/Alertness: Delayed responses to stimuli Orientation Level: Oriented to person, Oriented to place Following Commands: Follows commands less than 25% of the time Safety Judgment: Decreased awareness of need for assistance, Decreased awareness of need for safety Cognition Comments: delayed procressing, decreased command following Extremity Assessments: See PT Evaluation flowsheet for Extremity Measurement updates. Skin and Edema: Balance: Sitting Balance Static Sitting-Level of Assistance: Minimum assistance Dynamic Sitting-Level of Assistance: Maximum assistance Skilled Rationale: Sequencing, Hand placement, Positioning, Verbal cues Sitting Balance Skilled Intervention/Details: Pt completed EOB sitting x 10-12 minutes with min to max assist, pt required max cues for midline posture. pt with retro leaning, cues for anterior weight shifting Standing Balance Static Standing-Level of Assistance: Maximum assistance, 2-person assist Standing-Balance Support: Gait belt, Hand-held assist Skilled Rationale: Positioning, Sequencing, Hand placement, Verbal cues Standing Balance Skilled Intervention/Details: Pt completed static standing with max assist of 2. arm and arm assist, cues for midline posture, blocking of bilateral feet and knees Mobility Assessment/Intervention: Supine to Sit Mobility Kirvin Level: Supine->Sit: maximum assist (25% patient effort) Physical Assist: Supine->Sit: 2 person assist Bed Features/Set-up: Supine->Sit: Head of bed elevated, Use of bed rail Skilled Rationale: Positioning, Sequencing, Hand placement, Verbal cues Skilled Intervention/Details: Supine->Sit: minimal initiation Transfer Assessment/Intervention: Sit to Stand Transfer Kirvin Level: Sit->Stand: maximum assist (25% patient effort) Physical Assist: Sit->Stand: 2 person assist Assistive Device: Sit->Stand: gait belt, hand held assist Skilled Rationale: Positioning, Sequencing, Hand placement, Tactile cues Skilled Intervention/Details: Sit->Stand: Pt educated in sit to stand transfers x 3 with blocking of bilateral feet and knees Bed-Chair Transfer Kirvin Level: Bed<->Chair: dependent (less than 25% patient effort) Physical Assist: Bed<->Chair: 2 person assist Assistive Device: Bed<->Chair: gait belt, hand held assist Skilled Rationale: Positioning, Sequencing, Hand placement, Verbal cues Skilled Intervention/Details: Bed<->Chair: pt unable to complete steps, completed dependent pivot to chair toward patients left side Gait/Functional Mobility Assessment/Intervention: Stairs Assessment/Intervention: Outcome Score(s): CURRENT AM-PAC Basic Mobility Inpatient Short Form Turning over in bed: 1 - Total Assistance Moving from lying on back to sittin - Total Assistance Moving to and from bed to chair: 1 - Total Assistance Sitting/standing from chair: 1 - Total Assistance Walk in hospital room: 1 - Total Assistance Climbing 3-5 steps with a railin - Total Assistance CURRENT AM-[facility] Mobility Raw Score: 6 CURRENT [facility] Mobility Functional Limitation: 100.00% Impaired in Basic Mobility Interventions: Assessment & Plan: Pt making good progress toward therapy goals, improved sitting balance, able to complete pivot transfer Patient Instruction/Education this session: Learners: Patient Education provided: Activity outside of therapy, Discharge recommendations, Fall precautions Plan for next session: improve standing tolerance Acute PT Goals Plan of Care by Crystal Desouza PT at 10/27/2024 2:53 PM Version 1 of 1 Problem: PT - General Goals Goal: Supine <-> Sit Transfers - Patient will perform supine to/from sit transfers with contact guard assistance and with use of hospital bed features in order to improve functional mobility and safety. Outcome: Progressing Goal: Sit <-> Stand Transfers - Patient will perform sit to/from stand transfers with minimal assistance and least restrictive device in order to improve functional mobility and safety. Outcome: Progressing Goal: Standing Endurance/Balance - Patient will perform standing balance tasks for 8 min with minimal assistance and least restrictive device Outcome: Progressing PT treatment consisted of the following to progress towards the above goal(s): PT Evaluation and Treatment Time Neuromuscular Re-Education Time Entry: 28 Treating Therapist: Crystal Desouza PT Additional Details: PT Co-Eval/Treatment Information Co-evaluation/co-treatment performed?: Yes, simultaneous billable skilled care was necessary due to medical complexity and functional deficits Other discipline: OT Rationale for need to co-eval/treat: postural control, coordination, cognition Co-treatment goal focus: balance, mobility PPE used during patient interaction: gloves Patient location at end of session: chair Alarms on at end of session: chair alarm, RN aware Needs in reach. Time In: 927 Time Out: 955 Total Visit Time: 28 minutes Total Treatment Time (skilled, billable minutes): 28 minutes Upon discontinuation of Acute Care Physical Therapy Services or patient discharge from the hospital this note represents the current Physical Therapy Discharge Summary. Placement Plan Expected Discharge Date: TBD Referred Level of Care: SNF Barriers: Medical Readiness, Insurance pre-certification Current Referrals and Status [facility] SNF - Pending CM uploaded current clinical to [facility] for SNF to review. Patient failed MBS yesterday, being treated for UTI. SUPERVISOR OF INSTRUCTION continuing to follow. CM continuing to follow. PAM Fleming, [employer] DESIGN ENGINEER Communication Consultant Available by Secure Chat Acute Occupational Therapy Treatment Prior Gross Functional Mobility: needs assist Current AM-PAC score(s): CURRENT AM-PAC Activity Raw Score: 9 Based on the above AM-PAC score(s), and OT clinical judgment, discharge destination recommendation is: Longterm Facility Barriers to discharge home: Patient needs assistance with ADLs, Patient needs assistance with IADLs (see note below) Mobility equipment available at home: ADL equipment available at home: shower chair, grab bars Equipment recommendations for discharge: Equipment issued: none Current therapy frequency recommendation(s) in acute: 5 times a week Activity Recommendations for outside of rehab session: 2 person pivot vs. mayra Precautions and Weightbearing Status: OT Existing Precautions/Restrictions: fall Lines/Tubes/Drains (Rehab Status): Telemetry Patient Safety Communication Prior to Visit: Nursing Subjective: Significantly aphasic throughout Pain: General Pain Documentation (Adult, OB, Peds) Presence of Pain: denies pain/discomfort Presence of Pain Score (Auto-calculated): 0 Objective/Observation: Vitals/Vitals Responses to Treatment: VSS Cognition Overall Cognitive Status: Impaired Arousal/Alertness: Delayed responses to stimuli Orientation Level: Oriented to place, Oriented to person Following Commands: Follows commands less than 25% of the time Safety Judgment: Decreased awareness of need for safety, Decreased awareness of need for assistance Awareness of Errors: Assistance required to identify errors made, Assistance required to correct errors made Deficits: Decreased awareness of deficits Cognition Comments: Improved mimicking to follow commands ADL Assessment/Intervention: ADLs: ADL Assessment: Grooming Deficit Grooming Assistance: Moderate Grooming Location: edge of bed Grooming Deficit: Activity tolerance, Generalized weakness, Balance Grooming Skilled Rationale (Verbal/Tactile/Visual/Demonstrat ion): Setup, Supervision, Cues for increased safety, Technique of activity Grooming Intervention/Details: Hand over hand assist this session and max cues for initaiton of washing face, brushing teeth and brushing hair. Additionally, required max increased time due to cognition and delayed processing Balance: Sitting Balance Static Sitting-Level of Assistance: Minimum assistance Dynamic Sitting-Level of Assistance: Maximum assistance Skilled Rationale: Hand placement, Verbal cues, Sequencing, Positioning Standing Balance Static Standing-Level of Assistance: Maximum assistance, 2-person assist Dynamic Standing-Level of Assistance: Maximum assistance, 2-person assist Standing-Balance Support: Gait belt Skilled Rationale: Hand placement, Verbal cues, Tactile cues Mobility Assessment/Intervention: Supine to Sit Mobility Kirvin Level: Supine->Sit: maximum assist (25% patient effort) Physical Assist: Supine->Sit: 2 person assist Bed Features/Set-up: Supine->Sit: Head of bed elevated Skilled Rationale: Hand placement, Verbal cues, Tactile cues Skilled Intervention/Details: Supine->Sit: No intiation noted Transfer Assessment/Intervention: Sit to Stand Transfer Kirvin Level: Sit->Stand: maximum assist (25% patient effort) Physical Assist: Sit->Stand: 2 person assist Assistive Device: Sit->Stand: gait belt Skilled Rationale: Tactile cues, Verbal cues, Hand placement Skilled Intervention/Details: Sit->Stand: arm in arm assist x 3 trials Bed-Chair Transfer Kirvin Level: Bed<->Chair: maximum assist (25% patient effort) Physical Assist: Bed<->Chair: 2 person assist Assistive Device: Bed<->Chair: gait belt Skilled Rationale: Verbal cues, Tactile cues, Hand placement, Sequencing, Positioning CURRENT -[facility] Daily Activity Inpatient Short Form Putting on/Taking Off Lower Body Clothin - Total Assistance Bathin - A Lot of Assistance Toiletin - Total Assistance Putting on/Taking Off Upper Body Clothin - A Lot of Assistance Groomin - A Lot of Assistance Eatin - Total Assistance CURRENT AM-[facility] Activity Raw Score: 9 CURRENT AM-[facility] Activity Functional Limitation/Modifier: 79.59% Currently Impaired in Daily Activity - CL Interventions: Intervention 1 Intervention Name: Command following Details: Completed single step commands with 25% accuracy and increased success with mimicking. Completed to address participation in ADls Assessment & Plan: Pt with progress towards goals. Improved standing trials and able to pivot to chair this session which was improved compared to previous OT sessions. Due to no goals met would benefit from continued OT services Patient Instruction/Education this session: Learners: Patient Education provided: Activity outside of therapy Teaching method: Verbal Education/Instruction Learner response: States/Identifies/Teaches back Learning considerations: Cognition Plan for next session: Address commands and functional tasks Acute OT Goals Plan of Care by Molly Wagner OT at 10/27/2024 1:19 PM Version 1 of 1 Problem: OT - ADLs Goal: Grooming - Patient will complete grooming edge of bed with minimal assistance for improved ability to safely complete ADLs. Outcome: Progressing Problem: OT - Transfers Goal: Transfers Toilet/ Bedside Commode - Patient will transfer to/from toilet/bedside commode with minimal assistance for improved ability to safely complete ADLs. Outcome: Progressing Problem: OT - Strength/ROM Goal: Neuro Re-education - Patient will participate in neuro re-ed of right upper extremity with minimal assistance and 75% accuracy for improved functional use in ADLs. Outcome: Progressing Problem: OT - Cognition Goal: Cognition Simple ADL - Patient will demonstrate improved cognition, completing simple ADL task for 5 minutes with no greater than min cues required to maintain attention. Outcome: Progressing Problem: OT - Vision Goal: Visual Scanning ADL - Patient will employ use of visual compensatory strategies with no greater than min cues in 5/5 trials to increase participation and safety in ADLs. Outcome: Progressing OT treatment consisted of the following to work and progress towards the above goal(s): OT Evaluation and Treatment Time Self Care/Home Management (ADLs) Time Entry: 13 Neuromuscular Re-Education Time Entry: 10 Treating Therapist: Molly Wagner OT Additional Details: OT Co-Eval/Treatment Information Co-evaluation/co-treatment performed?: Yes, simultaneous billable skilled care was necessary due to medical complexity and functional deficits Other discipline: PT Rationale for need to co-eval/treat: postural control, cognition Co-treatment goal focus: balance, mobility, transfer, self-care PPE used during patient interaction: gloves Patient location at end of session: chair Alarms on at end of session: chair alarm, safety home care physical therapist present Needs in reach. Time In: 926 Time Out: 949 Total Visit Time: 23 minutes Total Treatment Time (skilled, billable minutes): 23 minutes Upon discontinuation of Acute Care Occupational Therapy Services or patient discharge from the hospital this note represents the current Occupational Therapy Discharge Summary. NUTRITION FOLLOW-UP Nutrition Recommendations and Plan of Care: Continue TF of Osmolite 1.2 at 50 mL/hr. Free water per primary team. Recommend minimum of 30 mL q4 hours x 6 daily to maintain tube patency. Or, can provide 75 mL x 6/day q4 hours to meet hydration needs. Monitor TF intake, TF tolerance, GI function, skin integrity, weight changes, and labs. RD to continue to follow. Per HPI, Behzad Hay is a 84 y.o. female with a PMH including afib, HTN, HLD. Presented from OSH for L thalamic ICH. CTA at OSH with no acute abnormalities. CTH at [facility] with redemonstration of L thalamic ICH and remote L MCA territory infract. Initially admitted to [facility] for frequent neuro checks and transferred to neurovascular service 10/19. Nutrition History/Assessment: Pt last assessed by RD 10/19. RD recommended TF of Osmolite 1.2 at 50 mL/hr. Per JUN, Osmolite 1.2 started evening of 10/19 and reached goal rate the following morning. Has continued at goal rate without stoppages since per JUN. Pt last assessed by SUPERVISOR OF INSTRUCTION yesterday with continued recommendations for NPO. Pt seen at bedside this afternoon. Unable to engage in conversation or NFPE 2/2 mental status. No family in room to speak with. No evident muscle/fat loss beyond what is normal for age upon visual examination. Per pump, in the past week pt has received an average TF volume of 940 mL/day, providing 1128 kcal/day and meeting 85% of minimum kcal needs. has no known allergies. 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 Suspect CBW more accurate than admit wt based on wt hx. Wt Readings from Last 20 Encounters: 10/19/24 56.4 kg (124 lb 5.4 oz) 10/12/24: 53.5 kg 10/04/24: 51.7 kg 04/26/24: 54 kg 10/27/23: 52.6 kg meds reviewed: Scheduled: Reviewed, includes Miralax daily, senna daily Continuous: Reviewed, includes Osmolite Notable home meds: Reviewed, includes ferrous sulfate (325 mg every other day) Labs reviewed: Sodium Date Value Ref Range Status 10/25/2024 137 135 - 145 mmol/L Final Potassium Date Value Ref Range Status 10/25/2024 4.7 3.5 - 5.0 mmol/L Final Chloride Date Value Ref Range Status 10/25/2024 102 98 - 108 mmol/L Final CO2 Date Value Ref Range Status 10/25/2024 26 21 - 31 mmol/L Final BUN Date Value Ref Range Status 10/25/2024 31 (H) 7 - 25 mg/dL Final Creatinine Date Value Ref Range Status 10/25/2024 0.76 0.50 - 1.20 mg/dL Final Magnesium Date Value Ref Range Status 10/22/2024 2.2 1.6 - 2.6 mg/dL Final Phosphorous Date Value Ref Range Status 10/19/2024 2.9 2.2 - 4.6 mg/dL Final Albumin Date Value Ref Range Status 10/19/2024 3.9 3.5 - 5.0 g/dL Final Glucose (POC Device) Date Value Ref Range Status 10/26/2024 150 Nonfasting Glucose: 70-179 mg/dL Final Hemoglobin A1C HPLC Date Value Ref Range Status 10/18/2024 5.4 4.7 - 5.6 % Final Lab Results Component Value Date GLUCOSE 150 10/26/2024 GLUCOSE 136 10/25/2024 GLUCOSE 132 10/25/2024 GLUCOSE 115 10/25/2024 GLUCOSE 124 10/25/2024 GLUCOSE 135 10/24/2024 Lab Results Component Value Date HGBA1C 5.4 10/18/2024 GI: Last bm: 10/24 (Mcgregor Stool Scale Type 6) Enteral access: post-pyloric small bore feeding tube Skin: Dani Score: 15 Edema- none documented Active Wounds: Wound 10/24/24 0800 Perineum (2) Cognitive Status: confused, Ox1, garbled/slurred speech Estimated Nutrition Needs: Weight Used: 53 kg (CBW) EEN: 6820-9557 kcal/day (25-30 kcal/kg) EPN: 64-80 g/day (1.2-1.5 g/kg) EFN: 1590 mL/day (30 mL/kg) or per primary team Malnutrition Statement: Does the patient meet criteria for malnutrition: Unable to assess *Based on [employer] Academy and [employer]EN Indicators to Diagnose Malnutrition (AAIM) criteria (2012) Fadumo Stark, , RD, LD, CSNC Pager #[phone] Acute Care Speech Language Pathology Treatment Diet Recommendations: Recommended Method of Nutrition: NPO, no oral diet recommended Recommended Medication Administration (as appropriate per MD): Non-Oral *Consider limited ice chips following oral care, given strict 1:1 family, RN, sitter supervision to assist in secretions clearance and reduce risk of disuse atrophy. *To prevent potential development of aspiration pneumonia/nosocomial infections, RECOMMEND: Oral care routine q4h and HOB upright as tolerated Best mode of Communication: spoken language Communication Strategies: -Ask conflicting yes/no questions (I.e. "Are you in pain?" followed by "Are you comfortable?") to ensure accurate response. -Provide pt options in field of 2. -Encourage use of intelligibility strategies: (SOS) Speak Up Over exaggerate / over pronounce sounds Slow down Discharge Recommendations: Based on the below outcome measures/assessment score(s), and SUPERVISOR OF INSTRUCTION clinical judgment, discharge destination recommendation is: Longterm Facility Barriers to discharge home: Need for 1:1 assist to ensure safety with all PO intake, Inability to communicate basic wants/needs Supporting factors for discharge setting: Impaired swallow function limiting nutritional status and safety with oral intake, Impaired speech and language skills limiting ability to communicate basic wants/needs Acute SUPERVISOR OF INSTRUCTION Outcomes Tracking Communicate basic wants and needs?: (emerging) Demo insight/appreciation of deficits?: no Complete basic problem solving?: (emerging) Current therapy frequency recommendation in acute: Speech/Lang/Cog Therapy Frequency: 3 times a week Swallow Therapy Frequency: 5 times a week Clinical Impression: Behzad Hay presents with mod-severe pharyngeal dysphagia (per FEES 10/22) , suspect at risk oral phase in setting admission acute L thalamic IPH, 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 Pt with known silent and sensate aspiration response per most recent FEES. SUPERVISOR OF INSTRUCTION explained dysphagia impacting swallow safety and efficiency to pt, daughter and following session to medical team. Concern for overall consistent performance on swallow study last completed 3 days prior. Medical team stating currently nutrition plan of care limiting discharge and requesting repeat completion at this time. MBS rather than FEES for visualization as limited prior. 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 Benefits from phonemic cues and redirection cues to complete tasks. Ongoing skilled SUPERVISOR OF INSTRUCTION services indicated to address deficits and maximize functional recovery. Subjective information: Seen at bedside, sitter present. Pt alert throughout. Notable more engaged and participatory following daughter entering room Pain: General Pain Documentation (Adult, OB, Peds) Presence of Pain: not present: non-verbal indicator of pain/discomfort Presence of Pain Score (Auto-calculated): 0 Precautions: Patient Safety Communication Prior to Visit: Nursing Lines/Tubes/Drains (Rehab Status): Telemetry, Tube feeding Existing Precautions/Restrictions: fall, NPO Respiratory Status: O2 Sat (%): 97 % (10/25 1452) O2 Device: room air (10/25 1452) Flow (L/min): 1 (10/25 1012) Acute SUPERVISOR OF INSTRUCTION Goals Plan of Care by Yola Barboza, SUPERVISOR OF INSTRUCTION at 10/25/2024 3:17 PM Version 1 of 1 Problem: SUPERVISOR OF INSTRUCTION - Language Goal: Command Following - Patient will complete 1-step commands with 75% accuracy with no cues in order to improve direction following for functional gains in ability to participate more independently in care Outcome: Ongoing TX: Suspect apraxia largely impacting-with functional object use, pt consistently bringing all items to mouth. Written cues provided. Pt able to read written instruction and accurately completed "open your mouth" independently. With second written command "make a fist", pt accurately read aloud however perseveration with opening mouth. Max cues for following command. Goal: Yes/No Response - Patient will answer yes/no questions related to current situation/environment with 90% accuracy with no cues in order to improve ability to answer questions related to care Outcome: Ongoing TX: With basic yes/no questions, accurately completed /, improved to 10/12 (83%) with cues of repetition. Additionally required max cues for pt to respond with yes/no response, often mumbling and unclear speech. Goal: Automatic Speech - Patient will complete automatic speech tasks with 100% accuracy given fading cues to improve word-finding and functional communication Outcome: Met TX: Pt with accurate counting 1-10. Min cue for days of the week and mouths but overall functional and goal met. Goal: Name Basic Objects/Pictures - Patient will name basic objects/pictures with 75% accuracy, with fading cues in order to improve word-finding and functional communication Outcome: Ongoing TX: Initially 2/7 accurate for naming tasks. With SUPERVISOR OF INSTRUCTION cues for semantic and phonemic cue. Improved to 7/7. Goal not yet met with need for consistent max cues. Goal: Object Identification by Name - Patient will complete identification tasks to select target item by name in field of 2 in 75% of opportunities with fading cues in order to demonstrate readiness for augmentative and alternative communication. Outcome: Ongoing NA Problem: Dysphagia Goal: Swallow x2 - Pt will swallow therapeutic PO trials of moderately thick liquids/IDDSI 3 x10 trials given moderate cues for use of swallow x2 strategy to improve bolus efficiency to facilitate readiness for repeat study Outcome: Ongoing TX: Pt accepted x6 mod thick via teaspoon. Noted increased wet/gurgly vocal quality and cough x1 which like indicative of airway events. Unclear if cues for multiple swallows completed. Appeared to completed in ~50% opportunities. Goal: Bolus challenge - Patient will accept trials of thin liquids x10-15 trials, given moderate cues for use of strategies to improve bolus control/timing of swallow initiation with no signs of aspiration to determine readiness for repeat study Outcome: Ongoing TX: Pt accepted x3 ice chips, x2 thin via straw with immediate strong cough response with thin liquids. Given FEES with concerns for intermittent silent aspiration, unclear if improved sensation. Patient Education/Instruction Learners: Patient, Adult Child/Children Education provided: Dysphagia risk factors, Dysphagia recommendations/impressions, Communication strategies, Oral care/impact on aspiration pneumonia risk factors, Plan of care, Role of this discipline, Safety Teaching method: Verbal Education/Instruction Learner response: No evidence of learning (daughter receptive to POC) Learning preferences: Auditory Learning considerations: Speech expression, Speech comprehension, Cognition (daughter appropriate) Stroke education: Role of rehabilitation discipline Plan for next session: 10/25: MBS, nutrition plan limiting discharge, ongoing communication Speech Language Pathologist: ULISES Chow Time In: 1515 Time Out: 154 Total Visit Time: 30 minutes Total Treatment Time (skilled, billable minutes): 30 minutes Non-billable assistance during session: NA Assisted by during session: NA PPE used during patient interaction: gloves Patient location/status at end of session: bed with head of bed elevated Patient alarms at end of session: none altered (sitter present) Needs in reach. SUPERVISOR OF INSTRUCTION Evaluation and Treatment Time Speech Therapy - Individual 80302: 15 Swallowing Dysfunction Treatment 68196: 15 Upon discontinuation of Acute Care Speech Therapy Services or patient discharge from the hospital this note represents the current Speech Therapy Discharge Summary Placement Plan Expected Discharge Date: TBD Referred Level of Care: SNF Barriers: Medical Readiness Current Referrals and Status [facility] SNF - Pending CM uploaded current PT OT and clinical notes to [facility] for SNF to review. Patient with a sitter and video sitter over the weekend. Patient is pending a Dysphagia plan. CM will continue to follow and assist with discharge planning. PAM Fleming, [place] Communication Consultant Available by Secure Chat Acute Occupational Therapy Treatment Prior Gross Functional Mobility: needs assist Current AM-PAC score(s): CURRENT AM-PAC Activity Raw Score: 9 Based on the above AM-PAC score(s), and OT clinical judgment, discharge destination recommendation is: Longterm Facility Barriers to discharge home: Patient needs assistance with ADLs, Patient needs assistance with IADLs (see note below) Mobility equipment available at home: ADL equipment available at home: shower chair, grab bars Equipment recommendations for discharge: Equipment issued: none Current therapy frequency recommendation(s) in acute: 5 times a week Precautions and Weightbearing Status: OT Existing Precautions/Restrictions: fall Lines/Tubes/Drains (Rehab Status): Telemetry, Tube feeding Patient Safety Communication Prior to Visit: Nursing Subjective: Expressive aphasia noted throughout Pain: General Pain Documentation (Adult, OB, Peds) Presence of Pain: not present: non-verbal indicator of pain/discomfort Presence of Pain Score (Auto-calculated): 0 Objective/Observation: Vitals/Vitals Responses to Treatment: VSS Cognition Overall Cognitive Status: Impaired Arousal/Alertness: Delayed responses to stimuli Orientation Level: Oriented to person, Oriented to place Following Commands: Follows commands 25-50% of the time, Follows one step commands with increased time, Follows one step commands with repetition Safety Judgment: Decreased awareness of need for safety, Decreased awareness of need for assistance Awareness of Errors: Assistance required to identify errors made, Assistance required to correct errors made Deficits: Decreased awareness of deficits Attention Span: Attends with cues to redirect ADL Assessment/Intervention: ADLs: ADL Assessment: Grooming Deficit Grooming Assistance: Moderate Grooming Location: edge of bed (in larry steady) Grooming Deficit: Activity tolerance, Generalized weakness, Balance Grooming Skilled Rationale (Verbal/Tactile/Visual/Demonstrat ion): Supervision, Setup, Cues for increased safety, Technique of activity Grooming Intervention/Details: Seated in larry steady and assist for elbow support of RUE due to weakness and completed to improve overall NMR. additionally, cues for throughoutness and attention to R side due to inattention Balance: Sitting Balance Static Sitting-Level of Assistance: Minimum assistance Dynamic Sitting-Level of Assistance: Maximum assistance Skilled Rationale: Verbal cues, Hand placement, Sequencing, Positioning Sitting Balance Skilled Intervention/Details: min A at beginning of session and cues for midline positioning as well as keeping BLEs on the ground for increased stability. Standing Balance Static Standing-Level of Assistance: Maximum assistance, 2-person assist Dynamic Standing-Level of Assistance: Maximum assistance, 2-person assist Standing-Balance Support: Gait belt Skilled Rationale: Tactile cues, Verbal cues, Hand placement, Sequencing, Positioning Standing Balance Skilled Intervention/Details: in larry steady with use of UEs on bar to support and hand over hand assist for increased project economist of RUE Mobility Assessment/Intervention: Supine to Sit Mobility Kirvin Level: Supine->Sit: maximum assist (25% patient effort) Physical Assist: Supine->Sit: 2 person assist Bed Features/Set-up: Supine->Sit: Head of bed elevated Skilled Rationale: Hand placement, Verbal cues, Sequencing, Positioning Skilled Intervention/Details: Supine->Sit: Minimal initaiton Sit to Supine Mobility Kirvin Level: Sit->Supine: maximum assist (25% patient effort) Physical Assist: Sit->Supine: 2 person assist Bed Features/Set-up: Sit->Supine: Head of bed elevated Skilled Rationale: Hand placement, Tactile cues, Verbal cues Skilled Intervention/Details: Sit->Supine: Cues for initation Transfer Assessment/Intervention: Sit to Stand Transfer Kirvin Level: Sit->Stand: maximum assist (25% patient effort) Physical Assist: Sit->Stand: 2 person assist Assistive Device: Sit->Stand: (X 1 trial with arm in arm assist and X 2 trials with larry steady) Skilled Rationale: Verbal cues, Hand placement, Sequencing, Positioning Skilled Intervention/Details: Sit->Stand: X 3 trials throughout. Knee blocking to RLE this session and assist to anterior weight shifting CURRENT [facility] Daily Activity Inpatient Short Form Putting on/Taking Off Lower Body Clothin - Total Assistance Bathin - A Lot of Assistance Toiletin - Total Assistance Putting on/Taking Off Upper Body Clothin - A Lot of Assistance Groomin - A Lot of Assistance Eatin - Total Assistance CURRENT [facility] Activity Raw Score: 9 CURRENT [facility] Activity Functional Limitation/Modifier: 79.59% Currently Impaired in Daily Activity - CL Assessment & Plan: Pt with progress towards goals. Improved transfers this session and able to tolerate several stands this session with R leaning throughout. R inattention, but able to attempt to use RUE during ADL tasks, but does require assist due to weakness. Due to progress, but no goals met would benefit from continued OT services Patient Instruction/Education this session: Learners: Patient Education provided: Activity outside of therapy Teaching method: Verbal Education/Instruction Learner response: Needs review Plan for next session: Address midline balance and RUE NMR Acute OT Goals Plan of Care by Molly Wagner OT at 10/25/2024 11:20 AM Version 1 of 1 Problem: OT - ADLs Goal: Grooming - Patient will complete grooming edge of bed with minimal assistance for improved ability to safely complete ADLs. Outcome: Progressing Problem: OT - Transfers Goal: Transfers Toilet/ Bedside Commode - Patient will transfer to/from toilet/bedside commode with minimal assistance for improved ability to safely complete ADLs. Outcome: Progressing Problem: OT - Strength/ROM Goal: Neuro Re-education - Patient will participate in neuro re-ed of right upper extremity with minimal assistance and 75% accuracy for improved functional use in ADLs. Outcome: Progressing Problem: OT - Cognition Goal: Cognition Simple ADL - Patient will demonstrate improved cognition, completing simple ADL task for 5 minutes with no greater than min cues required to maintain attention. Outcome: Progressing Problem: OT - Vision Goal: Visual Scanning ADL - Patient will employ use of visual compensatory strategies with no greater than min cues in 5/5 trials to increase participation and safety in ADLs. Outcome: Progressing OT treatment consisted of the following to work and progress towards the above goal(s): OT Evaluation and Treatment Time Self Care/Home Management (ADLs) Time Entry: 12 Neuromuscular Re-Education Time Entry: 12 Treating Therapist: Molly Wagner OT Additional Details: OT Co-Eval/Treatment Information Co-evaluation/co-treatment performed?: Yes, simultaneous billable skilled care was necessary due to medical complexity and functional deficits Other discipline: PT Rationale for need to co-eval/treat: postural control, cognition, coordination Co-treatment goal focus: balance, mobility, self-care PPE used during patient interaction: gloves Patient location at end of session: bed with head of bed elevated Alarms on at end of session: bed alarm, safety home care physical therapist present Needs in reach. Time In: 1012 Time Out: 1036 Total Visit Time: 24 minutes Total Treatment Time (skilled, billable minutes): 24 minutes Upon discontinuation of Acute Care Occupational Therapy Services or patient discharge from the hospital this note represents the current Occupational Therapy Discharge Summary. Acute Physical Therapy Treatment Prior Gross Functional Mobility: needs assist Current AM-PAC score(s): CURRENT AM-PAC Mobility Raw Score: 6 Based on the above AM-PAC score(s) and PT clinical judgment, patient is a good candidate for discharge to Longterm Facility Barriers to discharge home: Patient needs assistance with functional mobility Mobility equipment available at home: ADL equipment available at home: shower chair, grab bars Equipment needed for discharge: to be determined Current therapy frequency recommendation in acute: PT Therapy Frequency: 5 times a week Activity Recommendations for outside of rehab session: Larry Stedy to the chair Precautions and Weightbearing Status: Existing Precautions/Restrictions: fall, NPO Lines/Tubes/Drains (Rehab Status): Telemetry, Tube feeding Patient Safety Communication Prior to Visit: Nursing Subjective: Pt supine with sitter present. Unable to express needs but smiled when PT explained role and session to perform. Pain: General Pain Documentation (Adult, OB, Peds) Presence of Pain: not present: non-verbal indicator of pain/discomfort Presence of Pain Score (Auto-calculated): 0 Objective/Observation: Vitals/Vitals Responses to Treatment: Tolerated session well with no adverse reactions. O2 Device: nasal cannula Flow (L/min): 1 Cognition Overall Cognitive Status: Impaired Arousal/Alertness: Delayed responses to stimuli Orientation Level: Oriented to person (Able to state first name) Following Commands: Follows one step commands with increased time, Follows one step commands with repetition, Follows commands 25-50% of the time Safety Judgment: Decreased awareness of need for assistance, Decreased awareness of need for safety Awareness of Errors: Assistance required to identify errors made, Assistance required to correct errors made Deficits: Decreased awareness of deficits Attention Span: Attends with cues to redirect Extremity Assessments: See PT Evaluation flowsheet for Extremity Measurement updates. Skin and Edema: Edema Edema: none noted Balance: Sitting Balance Static Sitting-Level of Assistance: (CGA-mod) Dynamic Sitting-Level of Assistance: (Min-Max) Skilled Rationale: Positioning, Hand placement, Verbal cues, Tactile cues, Facilitate anterior shift, Full extension to upright positioning/posture, Finding/maintaining midline positioning, Upright gaze/neck extension Sitting Balance Skilled Intervention/Details: Worked at the EOB for 15 minutes and challenged balance with postural exercises and reaching tasks. Pt needed assist to keep bilat feet on the floor as pt pulls hips into flexion. With feet firmly on the ground pt's balance improves. Standing Balance Static Standing-Level of Assistance: Maximum assistance, 2-person assist Dynamic Standing-Level of Assistance: Maximum assistance, 2-person assist Standing-Balance Support: Stand assist device - non-powered Skilled Rationale: Verbal cues, Tactile cues, Full extension to upright positioning/posture Standing Balance Skilled Intervention/Details: Stood once with max A +2 and then stood 2x in Larry Stedy. Stood in device for 1-2 minutes. With all standing pt needed cuing at the shoulders and hips for extension and assist to extend bilat knees and keep knees apart. Wedge provided to assist. Mobility Assessment/Intervention: Rolling/Turning Mobility Kirvin Level: Rolling/Turning: maximum assist (25% patient effort) Bed Features/Set-up: Rolling/Turning: Flat Skilled Rationale: Hand placement, Verbal cues Skilled Intervention/Details: Rolling/Turning: Rolled left and right for positioning Scooting Bridging Mobility Kirvin Level: Scooting/Bridging: dependent (less than 25% patient effort) Physical Assist: Scooting/Bridgin person assist Bed Features/Set-up: Scooting/Bridging: Flat Skilled Rationale: Hand placement, Verbal cues Skilled Intervention/Details: Scooting/Bridging: Boost to HOB Supine to Sit Mobility Kirvin Level: Supine->Sit: maximum assist (25% patient effort) Physical Assist: Supine->Sit: 2 person assist Bed Features/Set-up: Supine->Sit: Head of bed elevated, Use of bed rail Skilled Rationale: Positioning, Sequencing, Hand placement, Verbal cues, Technique of activity Skilled Intervention/Details: Supine->Sit: Cues and hand over hand assist provided to roll to her left and assist provided to bring bilat LE over to the EOB and her trunk to upright. Sit to Supine Mobility Kirvin Level: Sit->Supine: maximum assist (25% patient effort) Physical Assist: Sit->Supine: 2 person assist Bed Features/Set-up: Sit->Supine: Head of bed elevated, Use of bed rail Skilled Rationale: Positioning, Sequencing, Hand placement, Verbal cues, Technique of activity Skilled Intervention/Details: Sit->Supine: Pt able to initiate but needed assist at the trunk and bilat LE. Transfer Assessment/Intervention: Sit to Stand Transfer Kirvin Level: Sit->Stand: maximum assist (25% patient effort) Physical Assist: Sit->Stand: 2 person assist Assistive Device: Sit->Stand: arm in arm Skilled Rationale: Positioning, Hand placement, Verbal cues, Facilitate anterior shift, Full extension to upright positioning/posture, Finding/maintaining midline positioning, Upright gaze/neck extension, Technique of activity Skilled Intervention/Details: Sit->Stand: x1 from EOB, x2 from Larry Stedy Stand to Sit Transfer Kirvin Level: Stand->Sit: moderate assist (50% patient effort) Physical Assist: Stand->Sit: 2 person assist Assistive Device: Stand->Sit: arm in arm Skilled Rationale: Positioning, Hand placement, Verbal cues, Controlled descent for sitting Skilled Intervention/Details: Stand->Sit: x2 to Larry Stedy, x1 to EOB Bed-Chair Transfer Kirvin Level: Bed<->Chair: not tested Gait/Functional Mobility Assessment/Intervention: Gait Assessment Kirvin Level: Gait: unable to assess Stairs Assessment/Intervention: Stairs Assessment Kirvin Level: Stair Negotiation: unable to assess Outcome Score(s): CURRENT [facility] Basic Mobility Inpatient Short Form Turning over in bed: 1 - Total Assistance Moving from lying on back to sittin - Total Assistance Moving to and from bed to chair: 1 - Total Assistance Sitting/standing from chair: 1 - Total Assistance Walk in hospital room: 1 - Total Assistance Climbing 3-5 steps with a railin - Total Assistance CURRENT [facility] Mobility Raw Score: 6 CURRENT [facility] Mobility Functional Limitation: 100.00% Impaired in Basic Mobility Assessment & Plan: Pt is making small gains with PT. Able to work on balance activites at the EOB and participate in standing in Larry Narvaez. Pt remains significantly below her baseline and will benefit from skilled PT to work on bed mobility, transfers, balance, standing and gait progression. Patient Instruction/Education this session: Learners: Patient Education provided: Balance training Learner response: Needs review Plan for next session: Sitting and standing balance Acute PT Goals Plan of Care by Janet Ruggiero PT at 10/25/2024 10:12 AM Version 1 of 1 Problem: PT - General Goals Goal: Ambulation - Patient will ambulate 50 feet with minimal assistance and least restrictive device to improve ability to safely navigate home and community. Outcome: Ongoing Problem: PT - General Goals Goal: Supine <-> Sit Transfers - Patient will perform supine to/from sit transfers with contact guard assistance and with use of hospital bed features in order to improve functional mobility and safety. Outcome: Progressing Goal: Sit <-> Stand Transfers - Patient will perform sit to/from stand transfers with minimal assistance and least restrictive device in order to improve functional mobility and safety. Outcome: Progressing Goal: Standing Endurance/Balance - Patient will perform standing balance tasks for 8 min with minimal assistance and least restrictive device Outcome: Progressing PT treatment consisted of the following to progress towards the above goal(s): PT Evaluation and Treatment Time Therapeutic Exercise Time Entry: 10 Therapeutic Activity Time Entry: 15 Treating Therapist: Janet Ruggiero PT Additional Details: PT Co-Eval/Treatment Information Co-evaluation/co-treatment performed?: Yes, simultaneous billable skilled care was necessary due to medical complexity and functional deficits Other discipline: OT Rationale for need to co-eval/treat: cognition, postural control Co-treatment goal focus: balance, mobility, transfer, endurance, strength PPE used during patient interaction: gloves Patient location at end of session: bed with head of bed elevated Alarms on at end of session: bed alarm (sitter present) Needs in reach. Time In: 1012 Time Out: 1037 Total Visit Time: 25 minutes Total Treatment Time (skilled, billable minutes): 25 minutes Upon discontinuation of Acute Care Physical Therapy Services or patient discharge from the hospital this note represents the current Physical Therapy Discharge Summary. Stroke Attending Addendum (Date of service 10/24/24): I have interviewed and examined patient. I have reviewed David Sutton CNP's note and agree with the following highlights, additions, and addendums: The patient is a 84 y.o.female with a history of Atrial fibrillation on eliquis, hypertension, hyperlipidemia who on 10/18/24 6a awoke with right hemiparesis (LKN 2100 prior to bed). At the [place] [facility] CT brain showed a left thalamic intracerebral hemorrhage and remote left inferior division MCA infarct. OSH CT angiogram head/neck negative. She was given K Centra. She was transferred to [facility] ER and on arrival NIHSS was 16. LDL 73, HgbA1c 5.4. The patient was admitted to the [facility]. MRI brain diffusion weighted images shows acute embolic infarcts in right CHAIR MENDER and L cerebellar. FLAIR shows old left MCA inferior division infarct. Failed FEES. Interval Overnight History: 129/59. Prn seroquel overnight for agitation. Neurological examination shows sleepy patient, aphasia and right hemiparesis, NIHSS 15 (BHUMI-1, ?-2, com-2, RUE-3, RLE-3, aphas-2, dys-1) Assessment/Plan: Eliquis related Acute left thalamic Intracerebral hemorrhage Post-bleed day # 6. Eliquis discontinued. Likely HTN hemorrhage. Continue Blood pressure control. On lisinopril, metoprolol. DVT prophylaxis with SCDs and heparin SQ. PT/OT consult-SNF. NPO- dobhoff for TF, failed FEES, speech to re-evaluate Mon. Start Asa PBD #10 (10/27). Family was considering watchman prior to ICH bc of falls. Referral for outpatient eval for watchman in 2-3 mo. VS q shift, labs q 3 days. Seroquel prn. Mayra Mar MD Neurovascular Stroke Service Intracerebral Hemorrhage Note IDENTIFYING INFORMATION Behzad Hay MR# [id number] 10/24/2024 HISTORY OF PRESENT ILLNESS Behzad Hay is a 84 y.o. female with a history of afib on eliquis (LD 10/18 AM), HTN, HLD who presents from [place] with L thalamic ICH. LKW 2100 10/17. Pt reportedly awoke at 0600 on 10/18 with some R sided weakness and was found by her home health aide at 0900 slumped against the wall with R sided weakness, R facial droop and dysarthria. NIHSS on arrival to [facility] ED 16 (2, 1 commands, 1 L gaze pref, 1 L facial droop, 2 R arm, 2 L leg, 3 R leg, 2 aphasia, 2 dysarthria). CTH at OSH with L thalamic IPH. CTA at OSH with no acute abnormalities. Repeat CTH at [facility] with redemonstration of known L thalamic ICH and remote L MCA territory infarct. BP on arrival 148/76. INTERVAL HISTORY 10/18: Admitted to [facility] for frequent neuro check 10/19: Transfer to [place] service 10/20: drowsy today after receiving Seroquel overnight, repeat CTH stable, increase metoprolol for afib RVR 10/21: improved exam today, SUPERVISOR OF INSTRUCTION re-eval pending, lisinopril increased to home dose 10/22: improved neuro exam however failed FEES, re-eval Monday 10/23: Seroquel/restraints ON for agitation. 10/24: Abd discomfort, urinary retention requiring straight cath PHYSICAL EXAM Gen: alert, NAD HEENT: normocephalic, no scalp lesions or tenderness, PERRLA, EOMI Neck: trachea midline, no JVD CV: +S1S2, RRR, no m/r/g Lungs: Respirations unlabored with equal chest rise Abd: soft, nontender, nondistended Extrem: Warm and well perfused, no cyanosis, clubbing, edema, 2+ pulses bilaterally Neuro: alert, expressive aphasia, garbled/incoherent with some intermittently clear, follows some simple commands, R hemiparesis CN II visual snyder full to confrontation without visual extinction CN III, IV, PERRL. Gaze midline CN V CN VII R facial droop CN VIII hearing grossly intact to voice CN IX & X Dysarthria/garbled speech CN XI shoulder shrug full strength bilaterally CNXII tongue protrudes midline MOTOR EXAMINATION: R hemiparesis NIHSS Provider NIH Stroke Scale NIH Interval (Provider): daily NIH Level of Conciousness (Provider): 0 NIH LOC Questions (Provider): 2 NIH LOC Commands (Provider): 1 NIH Best Gaze (Provider): 0 NIH Visual (Provider): 0 NIH Facial Palsy (Provider): 1 NIH Left Arm Motor (Provider): 0 NIH Right Arm Motor (Provider): 2 NIH Left Leg Motor (Provider): 0 NIH Right Leg Motor (Provider): 1 NIH Limb Ataxia (Provider): 0 NIH Sensory (Provider): 0 NIH Best Language (Provider): 2 NIH Dysarthria (Provider): 1 NIH Extinction and Inattention (Provider): 0 NIH Total Score (Provider): 10 Intracerebral Hemorrhage Volume ICH Volume Date of Scan: 10/18/24 Time of Scan: 1347 (A) Maximum Length (cm): 1.1 cm (B) Perpendicular Length (cm): 1.8 cm (C) Number of Slices: 3 (C) Slice Thickness (cm) : 0.5 cm ICH Volume (ml) (Calculated Score): 1.49 Intracerebral Hemorrhage Score Intracerebral Hemorrhage (ICH) Scale [place] Coma Scale Points: 1-->GCS 5-12 Age>/=80: 1-->yes Infratentorial Origin of Hemorrhage?: 0-->no ICH Volume >/= 30cm(3): 0-->no (less than 30cm(3)) Intraventricular Hemorrhage?: 0-->no ICH Score (Calculated): 2 Score 30 Day Mortality following ICH 0 0% Mortality 1 13% Mortality 2 26% Mortality 3 72% Mortality 4 97% Mortality 5 100% Mortality ASSESSMENT AND PLAN Neuro: Acute left BG ICH 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 CTA brain/neck: No acute findings 6 hr CTH:Stable exam. Acute left thalamic hemorrhage with mild surrounding vasogenic edema. 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 MRI brain: Left thalamic hemorrhage as noted on October 18, 2024 CT head. Punctate right occipital and left cerebellar acute infarcts. Remote left MCA territory infarct. CTH follow up: Stable left thalamic parenchymal hematoma with mildly increased edema. No significant mass effect TTE: EF 61%, LDL 73, A1c 5.4 Etiology: Likely hypertensive Antiplatelet plan: plan to start Aspirin 81 mg post stroke day #10 (10/27/24) Anticoagulation plan: TBD on outpatient basis in 2-3 months neurovascular follow up. Referral for cardiology ordered for Watchman consideration as family/patient had already been considering prior to hemorrhagic stroke Blood pressure goal: normotension Hemorrhagic Stroke Core Measures -NCISS on admission 16 -Patient has been started on Mechanical (SCD's) and Pharmacological (SQ heparin) DVT prophylaxis started after stable HCT. -Antiplatelet therapy is not indicated. -Anticoagulation therapy not indicated in hemorrhagic stroke -Patients LDL 73 and HgbA1c 5.4 were checked and the patient will be discharged on a lipid lowering Statin medication if LDL is greater than 100. -Dysphagia screening ordered, and will be completed prior to patient receiving oral intake. -Stroke education booklet has been provided both written and verbal education to the patient and family regarding hemorrhagic strokes. We have reviewed the patient's personal modifiable risk factors including: HTN, on eliquis as well as education on reducing these risk factors. -Patient is being assessed for Rehab by PT/OT/Speech and PM&R if indicated. Other problems: Complexity. Wound Documentation Any conditions listed below are present on admission unless otherwise specified. . Essential HTN - Home antihypertensives: lisinopril 10mg BID and metoprolol 25mg BID - Current regimen: - lisinopril 10mg BID - metoprolol 25mg BID - PRN labetalol and hydralazine -10/21 lisinopril increased to home dose 10mg BID HLD -hold home atorvastatin 40mg due to elevated LFTs on admission, downtrended, likely resume at discharge Atrial Fibrillation - On home eliquis 2.5mg BID (LD 7/7 AM) --> held in setting of acute bleed - received Kcentra at OSH - continue metoprolol 25mg BID for rate control - Antiplatelet plan: plan to start Aspirin 81 mg post stroke day #10 (10/27/24) - Anticoagulation plan: TBD on outpatient basis in 2-3 months neurovascular follow up. Referral for cardiology ordered for Watchman consideration as family/patient had already been considering prior to hemorrhagic stroke Dysphagia - 2/2 stroke - Continue DHT and TF; FEES when medically appropriate - 10/21 improved neuro exam, requested SUPERVISOR OF INSTRUCTION re-eval - 10/22 improved neuro exam however failed FEES, re-eval Friday Elevated LFTs (POA) - elevated on admit, repeat LFTs downtrended Fall Risk: Assessed for patient fall risk and discussed safety measures during rounding. Disposition: Behzad Hay will likely be discharged to pending medical readiness David Sutton, COMMUNITY RELATIONS OFFICER-AVIATION ELECTRONIC WARFARE OPERATOR 10/24/2024 12:49 PM VITAL SIGNS Temp: [98.7 F (37.1 C)-99.1 F (37.3 C)] 98.7 F (37.1 C) Pulse (Heart Rate): [93-137] 93 Resp Rate: [14-23] 23 BP: (129-156)/(59-82) 129/59 O2 Sat (%): [95 %-100 %] 97 % Oxygen Therapy: Oxygen Therapy O2 Sat (%): 97 % O2 Device: room air Intake/Output: Intake/Output Summary (Last 24 hours) at 10/24/2024 1249 Last data filed at 10/24/2024 1210 Gross per 24 hour Intake 865 ml Output 1935 ml Net -1070 ml LABS/CULTURES Lab Results Component Value Date WBC 12.55 (H) 10/22/2024 HGB 13.8 10/22/2024 HCT 43.3 10/22/2024 PLATELET 323 10/22/2024 MCV 96.7 10/22/2024 Lab Results Component Value Date SODIUM 139 10/22/2024 POTASSIUM 4.7 10/22/2024 CHLORIDE 104 10/22/2024 CO2 29 10/22/2024 BUN 24 10/22/2024 CREATSERUM 0.71 10/22/2024 GLUCOSE 149 10/24/2024 Lab Results Component Value Date CHOLESTEROL 140 10/18/2024 TRIG 106 10/18/2024 HDL 46 10/18/2024 LDLCALC 73 10/18/2024 Lab Results Component Value Date HGBA1C 5.4 10/18/2024 Lab Results Component Value Date ALBUMIN 3.9 10/19/2024 , No results found for: "CPK", TROP IMAGING/DIAGNOSTIC STUDIES MEDICATIONS heparin 5,000 Units Subcutaneous Q8H 0800/1600/2200 Lisinopril 10 mg Per NG tube Q12H Melatonin 3 mg Oral QHS Metoprolol 25 mg Per NG tube Q12H Senna 8.6 mg Per NG tube Daily Water liquid (free water) 30 mL Per NG tube Q4H REID Botello 10/24/2024 12:49 PM VITAL SIGNS Temp: [98.7 F (37.1 C)-99.1 F (37.3 C)] 98.7 F (37.1 C) Pulse (Heart Rate): [93-137] 93 Resp Rate: [14-23] 23 BP: (129-156)/(59-82) 129/59 O2 Sat (%): [95 %-100 %] 97 % IMAGING/DIAGNOSTIC STUDIES MEDICATIONS heparin 5,000 Units Subcutaneous Q8H 0800/1600/2200 Lisinopril 10 mg Per NG tube Q12H Melatonin 3 mg Oral QHS Metoprolol 25 mg Per NG tube Q12H Senna 8.6 mg Per NG tube Daily Water liquid (free water) 30 mL Per NG tube Q4H Cosigned by Mayra Mar MD at 10/24/2024 3:45 PM EDT Neurovascular Stroke Service Intracerebral Hemorrhage Note IDENTIFYING INFORMATION Behzad Hay MR# [id number] 10/23/2024 HISTORY OF PRESENT ILLNESS Behzad Hay is a 84 y.o. female with a history of afib on eliquis (LD 7/7 AM), HTN, HLD who presents from [place] with L thalamic ICH. LKW 2100 10/17. Pt reportedly awoke at 0600 on 10/18 with some R sided weakness and was found by her home health aide at 0900 slumped against the wall with R sided weakness, R facial droop and dysarthria. NIHSS on arrival to [facility] ED 16 (2, 1 commands, 1 L gaze pref, 1 L facial droop, 2 R arm, 2 L leg, 3 R leg, 2 aphasia, 2 dysarthria). CTH at OSH with L thalamic IPH. CTA at OSH with no acute abnormalities. Repeat CTH at [facility] with redemonstration of known L thalamic ICH and remote L MCA territory infarct. BP on arrival 148/76. INTERVAL HISTORY 10/18: Admitted to [facility]U for frequent neuro check 10/19: Transfer to [place] service 10/20: drowsy today after receiving Seroquel overnight, repeat CTH stable, increase metoprolol for afib RVR 10/21: improved exam today, SUPERVISOR OF INSTRUCTION re-eval pending, lisinopril increased to home dose 10/22: improved neuro exam however failed FEES, re-eval Monday 10/23: Seroquel/restraints ON for agitation. PHYSICAL EXAM Gen: alert, NAD HEENT: normocephalic, no scalp lesions or tenderness, PERRLA, EOMI Neck: trachea midline, no JVD CV: +S1S2, RRR, no m/r/g Lungs: Respirations unlabored with equal chest rise Abd: soft, nontender, nondistended Extrem: Warm and well perfused, no cyanosis, clubbing, edema, 2+ pulses bilaterally Neuro: alert, expressive aphasia, garbled/incoherent with some intermittently clear, follows some simple commands, R hemiparesis CN II visual snyder full to confrontation without visual extinction CN III, IV, PERRL. Gaze midline CN V CN VII R facial droop CN VIII hearing grossly intact to voice CN IX & X Dysarthria/garbled speech CN XI shoulder shrug full strength bilaterally CNXII tongue protrudes midline MOTOR EXAMINATION: R hemiparesis NIHSS Provider NIH Stroke Scale NIH Interval (Provider): daily NIH Level of Conciousness (Provider): 1 NIH LOC Questions (Provider): 2 NIH LOC Commands (Provider): 0 NIH Best Gaze (Provider): 0 NIH Visual (Provider): 0 NIH Facial Palsy (Provider): 1 NIH Left Arm Motor (Provider): 0 NIH Right Arm Motor (Provider): 2 NIH Left Leg Motor (Provider): 0 NIH Right Leg Motor (Provider): 1 NIH Limb Ataxia (Provider): 0 NIH Sensory (Provider): 0 NIH Best Language (Provider): 1 NIH Dysarthria (Provider): 1 NIH Extinction and Inattention (Provider): 0 NIH Total Score (Provider): 9 Intracerebral Hemorrhage Volume ICH Volume Date of Scan: 10/18/24 Time of Scan: 1347 (A) Maximum Length (cm): 1.1 cm (B) Perpendicular Length (cm): 1.8 cm (C) Number of Slices: 3 (C) Slice Thickness (cm) : 0.5 cm ICH Volume (ml) (Calculated Score): 1.49 Intracerebral Hemorrhage Score Intracerebral Hemorrhage (ICH) Scale [place] Coma Scale Points: 1-->GCS 5-12 Age>/=80: 1-->yes Infratentorial Origin of Hemorrhage?: 0-->no ICH Volume >/= 30cm(3): 0-->no (less than 30cm(3)) Intraventricular Hemorrhage?: 0-->no ICH Score (Calculated): 2 Score 30 Day Mortality following ICH 0 0% Mortality 1 13% Mortality 2 26% Mortality 3 72% Mortality 4 97% Mortality 5 100% Mortality ASSESSMENT AND PLAN Neuro: Acute left BG ICH 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 CTA brain/neck: No acute findings 6 hr CTH:Stable exam. Acute left thalamic hemorrhage with mild surrounding vasogenic edema. 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 MRI brain: Left thalamic hemorrhage as noted on October 18, 2024 CT head. Punctate right occipital and left cerebellar acute infarcts. Remote left MCA territory infarct. CTH follow up: Stable left thalamic parenchymal hematoma with mildly increased edema. No significant mass effect TTE: EF 61%, LDL 73, A1c 5.4 Etiology: Likely hypertensive Antiplatelet plan: plan to start Aspirin 81 mg post stroke day #10 (10/27/24) Anticoagulation plan: TBD on outpatient basis in 2-3 months neurovascular follow up. Referral for cardiology ordered for Watchman consideration as family/patient had already been considering prior to hemorrhagic stroke Blood pressure goal: normotension Hemorrhagic Stroke Core Measures -NHISS on admission 16 -Patient has been started on Mechanical (SCD's) and Pharmacological (SQ heparin) DVT prophylaxis started after stable HCT. -Antiplatelet therapy is not indicated. -Anticoagulation therapy not indicated in hemorrhagic stroke -Patients LDL 73 and HgbA1c 5.4 were checked and the patient will be discharged on a lipid lowering Statin medication if LDL is greater than 100. -Dysphagia screening ordered, and will be completed prior to patient receiving oral intake. -Stroke education booklet has been provided both written and verbal education to the patient and family regarding hemorrhagic strokes. We have reviewed the patient's personal modifiable risk factors including: HTN, on eliquis as well as education on reducing these risk factors. -Patient is being assessed for Rehab by PT/OT/Speech and PM&R if indicated. Other problems: Complexity. Wound Documentation Any conditions listed below are present on admission unless otherwise specified. . Essential HTN - Home antihypertensives: lisinopril 10mg BID and metoprolol 25mg BID - Current regimen: - lisinopril 10mg BID - metoprolol 25mg BID - PRN labetalol and hydralazine -10/21 lisinopril increased to home dose 10mg BID HLD -hold home atorvastatin 40mg due to elevated LFTs on admission, downtrended, likely resume at discharge Atrial Fibrillation - On home eliquis 2.5mg BID (LD 7/7 AM) --> held in setting of acute bleed - received Kcentra at OSH - continue metoprolol 25mg BID for rate control - Antiplatelet plan: plan to start Aspirin 81 mg post stroke day #10 (10/27/24) - Anticoagulation plan: TBD on outpatient basis in 2-3 months neurovascular follow up. Referral for cardiology ordered for Watchman consideration as family/patient had already been considering prior to hemorrhagic stroke Dysphagia - 2/2 stroke - Continue DHT and TF; FEES when medically appropriate - 10/21 improved neuro exam, requested SUPERVISOR OF INSTRUCTION re-eval - 10/22 improved neuro exam however failed FEES, re-eval Friday Elevated LFTs (POA) - elevated on admit, repeat LFTs downtrended Fall Risk: Assessed for patient fall risk and discussed safety measures during rounding. Disposition: Behzad Hay will likely be discharged to pending medical readiness REID Botello 10/23/2024 12:35 PM VITAL SIGNS Temp: [97.4 F (36.3 C)-98.3 F (36.8 C)] 98.3 F (36.8 C) Pulse (Heart Rate): [96-123] 114 Resp Rate: [16-20] 20 BP: (104-158)/(57-84) 119/67 O2 Sat (%): [96 %-99 %] 96 % Oxygen Therapy: Oxygen Therapy O2 Sat (%): 96 % O2 Device: room air Intake/Output: Intake/Output Summary (Last 24 hours) at 10/23/2024 1235 Last data filed at 10/23/2024 0600 Gross per 24 hour Intake -- Output 350 ml Net -350 ml LABS/CULTURES Lab Results Component Value Date WBC 12.55 (H) 10/22/2024 HGB 13.8 10/22/2024 HCT 43.3 10/22/2024 PLATELET 323 10/22/2024 MCV 96.7 10/22/2024 Lab Results Component Value Date SODIUM 139 10/22/2024 POTASSIUM 4.7 10/22/2024 CHLORIDE 104 10/22/2024 CO2 29 10/22/2024 BUN 24 10/22/2024 CREATSERUM 0.71 10/22/2024 GLUCOSE 113 10/23/2024 Lab Results Component Value Date CHOLESTEROL 140 10/18/2024 TRIG 106 10/18/2024 HDL 46 10/18/2024 LDLCALC 73 10/18/2024 Lab Results Component Value Date HGBA1C 5.4 10/18/2024 Lab Results Component Value Date ALBUMIN 3.9 10/19/2024 , No results found for: "CPK", TROP IMAGING/DIAGNOSTIC STUDIES MEDICATIONS heparin 5,000 Units Subcutaneous Q8H 0800/1600/2200 Lisinopril 10 mg Per NG tube Q12H Melatonin 3 mg Oral QHS Metoprolol 25 mg Per NG tube Q12H Senna 8.6 mg Per NG tube Daily Water liquid (free water) 30 mL Per NG tube Q4H REID Botello 10/23/2024 12:35 PM VITAL SIGNS Temp: [97.4 F (36.3 C)-98.3 F (36.8 C)] 98.3 F (36.8 C) Pulse (Heart Rate): [96-123] 114 Resp Rate: [16-20] 20 BP: (104-158)/(57-84) 119/67 O2 Sat (%): [96 %-99 %] 96 % IMAGING/DIAGNOSTIC STUDIES MEDICATIONS heparin 5,000 Units Subcutaneous Q8H 0800/1600/2200 Lisinopril 10 mg Per NG tube Q12H Melatonin 3 mg Oral QHS Metoprolol 25 mg Per NG tube Q12H Senna 8.6 mg Per NG tube Daily Water liquid (free water) 30 mL Per NG tube Q4H Cosigned by Mayra Mar MD at 10/23/2024 12:49 PM EDT Stroke Attending Addendum (Date of service 10/23/24): I have interviewed and examined patient. I have reviewed David Sutton CNP's note and agree with the following highlights, additions, and addendums: The patient is a 84 y.o.female with a history of Atrial fibrillation on eliquis, hypertension, hyperlipidemia who on 10/18/24 6a awoke with right hemiparesis (LKN 2100 prior to bed). At the [place] [facility] CT brain showed a left thalamic intracerebral hemorrhage and remote left inferior division MCA infarct. OSH CT angiogram head/neck negative. She was given K Centra. She was transferred to [facility] ER and on arrival NIHSS was 16. LDL 73, HgbA1c 5.4. The patient was admitted to the NCCU. MRI brain diffusion weighted images shows acute embolic infarcts in right CHAIR MENDER and L cerebellar. FLAIR shows old left MCA inferior division infarct. Failed FEES. Interval Overnight History: 149/84. Agitated O/N, given seroquel. Neurological examination shows sleepy patient, aphasia and right hemiparesis, NIHSS 12 (BHUMI-1, ?-2, com-2, RUE-3, RLE-1, aphas-2, dys-1) Assessment/Plan: Eliquis related Acute left thalamic Intracerebral hemorrhage Post-bleed day # 5. Eliquis discontinued. Likely HTN hemorrhage. Continue Blood pressure control. On lisinopril, metoprolol. DVT prophylaxis with SCDs and heparin SQ. PT/OT consult-SNF. NPO- dobhoff for TF, failed FEES, speech to re-evaluate Mon. Start Asa PBD #10 (10/27). Family was considering watchman prior to ICH bc of falls. Referral for outpatient eval for watchman in 2-3 mo. VS q shift, labs q 3 days. Seroquel prn. Mayra Mar MD Stroke Attending Addendum (Date of service 10/22/24): I have interviewed and examined patient. I have reviewed Ailyn Mullen CNP's note and agree with the following highlights, additions, and addendums: The patient is a 84 y.o.female with a history of Atrial fibrillation on eliquis, hypertension, hyperlipidemia who on 10/18/24 6a awoke with right hemiparesis (LKN 2100 prior to bed). At the [place] [facility] CT brain showed a left thalamic intracerebral hemorrhage and remote left inferior division MCA infarct. OSH CT angiogram head/neck negative. She was given K Centra. She was transferred to [facility] ER and on arrival NIHSS was 16. LDL 73, HgbA1c 5.4. The patient was admitted to the NCCU. MRI brain diffusion weighted images shows acute embolic infarcts in right CHAIR MENDER and L cerebellar. FLAIR shows old left MCA inferior division infarct. Failed FEES. Interval Overnight History: 140/77. 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 Eliquis discontinued. Likely HTN hemorrhage. Continue Blood pressure control. On lisinopril, metoprolol. DVT prophylaxis with SCDs and heparin SQ. PT/OT consult-SNF. NPO- dobhoff for TF, failed FEE, speech to re-evaluate Mon. Start Asa PBD #10 (10/27). Family was considering watchman prior to ICH bc of falls. Referral for outpatient eval for watchman in 2-3 mo. VS q shift, labs q 3 days. Mayra Mar MD Placement Plan Expected Discharge Date: TBD Referred Level of Care: SNF Barriers: Dysphagia plan, Insurance Pre-certification Current Referrals and Status [facility] SNF - Pending CM uploaded referral to [facility] for Facility to review. At time of initial assessment, daughter preference location for post hospital discharge rehabilitation was at [facility]. CM will continue to follow and assist patient and family through discharge planning process. PAM Fleming, MECHANICAL PRODUCT DESIGN ENGINEER Communication Consultant Available by Secure Chat Acute Care Speech Language Pathology Treatment Diet Recommendations: Recommended Method of Nutrition: NPO, no oral diet recommended Recommended Medication Administration (as appropriate per MD): Non-Oral *Consider limited ice chips following oral care, given strict 1:1 RN supervision to assist in secretions clearance and reduce risk of disuse atrophy. *To prevent potential development of aspiration pneumonia/nosocomial infections, RECOMMEND: Oral care routine q4h and HOB upright as tolerated Discharge Recommendations: Based on the below outcome measures/assessment score(s), and SUPERVISOR OF INSTRUCTION clinical judgment, discharge destination recommendation is: Longterm Facility Barriers to discharge home: Need for 1:1 assist to ensure safety with all PO intake Supporting factors for discharge setting: Impaired swallow function limiting nutritional status and safety with oral intake Acute SUPERVISOR OF INSTRUCTION Outcomes Tracking Communicate basic wants and needs?: (emerging) Demo insight/appreciation of deficits?: no (cues beneficial) Complete basic problem solving?: (limited assessment, suspect emerging) Current therapy frequency recommendation in acute: Speech/Lang/Cog Therapy Frequency: 3 times a week Swallow Therapy Frequency: 5 times a week Clinical Impression: Behzad Hay presents with ongoing concerns for oropharyngeal dysphagia in setting of admission secondary to 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 Consistent acceptance with minimal cues. No anterior loss and complete oral clearance. Immediate cough response with thin liquids via straw x1. Cues for small, single sips appeared effective to eliminate cough response, however concern for pt consistent ability to implement/follow directions given waxing/waning participation throughout admission. MBS unable to be scheduled by fluoro/radiology department this date. Given pt improved participation, no response to tactile stimulation on nose and verbal willingness to trial FEES, recommend FEES swallow study this date. Ongoing skilled services warranted for dysphagia management to direct swallow POC and progress to least restrictive PO intake. Subjective information: Seen in bed, resting on arrival but easily alerted and redirectable throughout session. Pleasant though overall communication intelligibility limited by severity of dysarthria and ?aphasia Pain: General Pain Documentation (Adult, OB, Peds) Presence of Pain: denies pain/discomfort Presence of Pain Score (Auto-calculated): 0 Precautions: Patient Safety Communication Prior to Visit: Nursing Lines/Tubes/Drains (Rehab Status): Telemetry, Tube feeding, Urinary catheter Existing Precautions/Restrictions: fall, NPO Respiratory Status: O2 Sat (%): 98 % (10/22 701) Acute SUPERVISOR OF INSTRUCTION Goals Plan of Care by ULISES Chow at 10/22/2024 8:22 AM Version 1 of 1 Problem: Dysphagia Goal: MBS - Patient will participate in Modified Barium Swallow (MBS) Study to objectively assess oropharyngeal swallow function to most appropriately guide SUPERVISOR OF INSTRUCTION plan of care Outcome: Not Met See impression Problem: Dysphagia Goal: Ongoing Assessment - Patient will participate in ongoing assessment by accepting various PO consistency trials with appropriate participation/oral acceptance and no significant respiratory complications to determine readiness for possible FEES vs diet Outcome: Ongoing TX: Pt accepted x2 ice chips, self-fed x3 thin via straw (cue for single sip x1 appeared effective), accepted x2 bite of puree solids. Complete oral clearance, overt signs/symptoms concerning for penetration/aspiration warranting instrumental swallow study. Recommend FEES. Patient Education/Instruction Learners: Patient Education provided: Dysphagia risk factors, Dysphagia recommendations/impressions, Plan of care, Role of this discipline (goal for changing MBS to FEES for completion this date) Teaching method: Verbal Education/Instruction Learner response: No evidence of learning Learning preferences: Auditory Learning considerations: Speech expression, Speech comprehension Stroke education: Role of rehabilitation discipline Plan for next session: 10/22: FEES this date Speech Language Pathologist: ULISES Chow Time In: 820 Time Out: 832 Total Visit Time: 12 minutes Total Treatment Time (skilled, billable minutes): 12 minutes Non-billable assistance during session: Maria G Whitney Assisted by during session: NA PPE used during patient interaction: facemask Patient location/status at end of session: bed with head of bed elevated Patient alarms at end of session: wrist restraints Needs in reach. SUPERVISOR OF INSTRUCTION Evaluation and Treatment Time Swallowing Dysfunction Treatment 93195: 12 Upon discontinuation of Acute Care Speech Therapy Services or patient discharge from the hospital this note represents the current Speech Therapy Discharge Summary Neurovascular Stroke Service Intracerebral Hemorrhage Note IDENTIFYING INFORMATION Behzad Hay MR# [id number] 10/22/2024 HISTORY OF PRESENT ILLNESS Behzad Hay is a 84 y.o. female with a history of afib on eliquis (LD 7 AM), HTN, HLD who presents from [place] with L thalamic ICH. LKW 2100 10/17. Pt reportedly awoke at 0600 on 10/18 with some R sided weakness and was found by her home health aide at 0900 slumped against the wall with R sided weakness, R facial droop and dysarthria. NIHSS on arrival to [facility] ED 16 (2, 1 commands, 1 L gaze pref, 1 L facial droop, 2 R arm, 2 L leg, 3 R leg, 2 aphasia, 2 dysarthria). CTH at OSH with L thalamic IPH. CTA at OSH with no acute abnormalities. Repeat CTH at [facility] with redemonstration of known L thalamic ICH and remote L MCA territory infarct. BP on arrival 148/76. INTERVAL HISTORY 10/18: Admitted to NCCU for frequent neuro check 10/19: Transfer to [place] service 10/20: drowsy today after receiving Seroquel overnight, repeat CTH stable, increase metoprolol for afib RVR 10/21: improved exam today, SUPERVISOR OF INSTRUCTION re-eval pending, lisinopril increased to home dose 10/22: improved neuro exam however failed FEES, re-eval Friday PHYSICAL EXAM Gen: alert, NAD HEENT: normocephalic, no scalp lesions or tenderness, PERRLA, EOMI Neck: trachea midline, no JVD CV: +S1S2, RRR, no m/r/g Lungs: LCTA bilaterally with equal chest rise Abd: soft, nontender, nondistended, +BS x4 quadrants Extrem: Warm and well perfused, no cyanosis, clubbing, edema, 2+ pulses bilaterally Neuro: alert, expressive aphasia, garbled/incoherent with some intermittently clear, follows some simple commands, R hemiparesis CN II visual snyder full to confrontation without visual extinction CN III, IV, PERRL. Gaze midline CN V CN VII R facial droop CN VIII hearing grossly intact to voice CN IX & X Dysarthria/garbled speech CN XI shoulder shrug full strength bilaterally CNXII tongue protrudes midline MOTOR EXAMINATION: R hemiparesis NIHSS Provider NIH Stroke Scale NIH Interval (Provider): daily NIH Level of Conciousness (Provider): 0 NIH LOC Questions (Provider): 2 NIH LOC Commands (Provider): 0 NIH Best Gaze (Provider): 0 NIH Visual (Provider): 0 NIH Facial Palsy (Provider): 1 NIH Left Arm Motor (Provider): 0 NIH Right Arm Motor (Provider): 2 NIH Left Leg Motor (Provider): 0 NIH Right Leg Motor (Provider): 1 NIH Limb Ataxia (Provider): 0 NIH Sensory (Provider): 0 NIH Best Language (Provider): 1 NIH Dysarthria (Provider): 1 NIH Extinction and Inattention (Provider): 0 NIH Total Score (Provider): 8 Intracerebral Hemorrhage Volume ICH Volume Date of Scan: 10/18/24 Time of Scan: 1347 (A) Maximum Length (cm): 1.1 cm (B) Perpendicular Length (cm): 1.8 cm (C) Number of Slices: 3 (C) Slice Thickness (cm) : 0.5 cm ICH Volume (ml) (Calculated Score): 1.49 Intracerebral Hemorrhage Score Intracerebral Hemorrhage (ICH) Scale [place] Coma Scale Points: 1-->GCS 5-12 Age>/=80: 1-->yes Infratentorial Origin of Hemorrhage?: 0-->no ICH Volume >/= 30cm(3): 0-->no (less than 30cm(3)) Intraventricular Hemorrhage?: 0-->no ICH Score (Calculated): 2 Score 30 Day Mortality following ICH 0 0% Mortality 1 13% Mortality 2 26% Mortality 3 72% Mortality 4 97% Mortality 5 100% Mortality ASSESSMENT AND PLAN Neuro: Acute left BG ICH 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 CTA brain/neck: No acute findings 6 hr CTH:Stable exam. Acute left thalamic hemorrhage with mild surrounding vasogenic edema. 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 MRI brain: Left thalamic hemorrhage as noted on October 18, 2024 CT head. Punctate right occipital and left cerebellar acute infarcts. Remote left MCA territory infarct. CTH follow up: Stable left thalamic parenchymal hematoma with mildly increased edema. No significant mass effect TTE: EF 61%, LDL 73, A1c 5.4 Etiology: Likely hypertensive Antiplatelet plan: plan to start Aspirin 81 mg post stroke day #10 (10/27/24) Anticoagulation plan: TBD on outpatient basis in 2-3 months neurovascular follow up. Referral for cardiology ordered for Watchman consideration as family/patient had already been considering prior to hemorrhagic stroke Blood pressure goal: normotension Hemorrhagic Stroke Core Measures -NCISS on admission 16 -Patient has been started on Mechanical (SCD's) and Pharmacological (SQ heparin) DVT prophylaxis started after stable HCT. -Antiplatelet therapy is not indicated. -Anticoagulation therapy not indicated in hemorrhagic stroke -Patients LDL 73 and HgbA1c 5.4 were checked and the patient will be discharged on a lipid lowering Statin medication if LDL is greater than 100. -Dysphagia screening ordered, and will be completed prior to patient receiving oral intake. -Stroke education booklet has been provided both written and verbal education to the patient and family regarding hemorrhagic strokes. We have reviewed the patient's personal modifiable risk factors including: HTN, on eliquis as well as education on reducing these risk factors. -Patient is being assessed for Rehab by PT/OT/Speech and PM&R if indicated. Other problems: Complexity. Wound Documentation Any conditions listed below are present on admission unless otherwise specified. . Essential HTN - Home antihypertensives: lisinopril 10mg BID and metoprolol 25mg BID - Current regimen: - lisinopril 10mg BID - metoprolol 25mg BID - PRN labetalol and hydralazine -10/21 lisinopril increased to home dose 10mg BID HLD -hold home atorvastatin 40mg due to elevated LFTs on admission, downtrended, likely resume at discharge Atrial Fibrillation - On home eliquis 2.5mg BID (LD 7/7 AM) --> held in setting of acute bleed - received Kcentra at OSH - continue metoprolol 25mg BID for rate control - Antiplatelet plan: plan to start Aspirin 81 mg post stroke day #10 (10/27/24) - Anticoagulation plan: TBD on outpatient basis in 2-3 months neurovascular follow up. Referral for cardiology ordered for Watchman consideration as family/patient had already been considering prior to hemorrhagic stroke Dysphagia - 2/2 stroke - Continue DHT and TF; FEES when medically appropriate - 10/21 improved neuro exam, requested SUPERVISOR OF INSTRUCTION re-eval - 10/22 improved neuro exam however failed FEES, re-eval Friday Elevated LFTs (POA) - elevated on admit, repeat LFTs downtrended Fall Risk: Assessed for patient fall risk and discussed safety measures during rounding. Disposition: Behzad Hay will likely be discharged to pending medical readiness Jesus Yang, [employer]ARE OPERATOR 10/22/2024 11:22 AM VITAL SIGNS Temp: [97.7 F (36.5 C)-98.9 F (37.2 C)] 98.3 F (36.8 C) Pulse (Heart Rate): [88-108] 93 Resp Rate: [18-20] 20 BP: (116-140)/(64-84) 140/77 O2 Sat (%): [94 %-98 %] 98 % Oxygen Therapy: Oxygen Therapy O2 Sat (%): 98 % O2 Device: room air Intake/Output: Intake/Output Summary (Last 24 hours) at 10/22/2024 1122 Last data filed at 10/22/2024 0855 Gross per 24 hour Intake 1015.5 ml Output 450 ml Net 565.5 ml LABS/CULTURES Lab Results Component Value Date WBC 12.55 (H) 10/22/2024 HGB 13.8 10/22/2024 HCT 43.3 10/22/2024 PLATELET 323 10/22/2024 MCV 96.7 10/22/2024 Lab Results Component Value Date SODIUM 139 10/22/2024 POTASSIUM 4.7 10/22/2024 CHLORIDE 104 10/22/2024 CO2 29 10/22/2024 BUN 24 10/22/2024 CREATSERUM 0.71 10/22/2024 GLUCOSE 119 10/22/2024 Lab Results Component Value Date CHOLESTEROL 140 10/18/2024 TRIG 106 10/18/2024 HDL 46 10/18/2024 LDLCALC 73 10/18/2024 Lab Results Component Value Date HGBA1C 5.4 10/18/2024 Lab Results Component Value Date ALBUMIN 3.9 10/19/2024 , No results found for: "CPK", TROP IMAGING/DIAGNOSTIC STUDIES MEDICATIONS heparin 5,000 Units Subcutaneous Q8H 0800/1600/2200 Lisinopril 10 mg Per NG tube Q12H Metoprolol 25 mg Per NG tube Q12H Senna 8.6 mg Per NG tube Daily Water liquid (free water) 30 mL Per NG tube Q4H REID Gomez 10/22/2024 11:22 AM VITAL SIGNS Temp: [97.7 F (36.5 C)-98.9 F (37.2 C)] 98.3 F (36.8 C) Pulse (Heart Rate): [88-108] 93 Resp Rate: [18-20] 20 BP: (116-140)/(64-84) 140/77 O2 Sat (%): [94 %-98 %] 98 % IMAGING/DIAGNOSTIC STUDIES MEDICATIONS heparin 5,000 Units Subcutaneous Q8H 0800/1600/2200 Lisinopril 10 mg Per NG tube Q12H Metoprolol 25 mg Per NG tube Q12H Senna 8.6 mg Per NG tube Daily Water liquid (free water) 30 mL Per NG tube Q4H Cosigned by Mayra Mar MD at 10/22/2024 10:06 PM EDT Stroke Attending Addendum (Late entry for 10/21/24): I have interviewed and examined patient. I have reviewed Ailyn Mullen CNP's note and agree with the following highlights, additions, and addendums: The patient is a 84 y.o.female with a history of Atrial fibrillation on eliquis, hypertension, hyperlipidemia who on 10/18/24 6a awoke with right hemiparesis (LKN 2100 prior to bed). At the [facility] CT brain showed a left thalamic intracerebral hemorrhage and remote left inferior division MCA infarct. OSH CT angiogram head/neck negative. She was given K [facility]. She was transferred to [facility] ER and on arrival NIHSS was 16. LDL 73, HgbA1c 5.4. The patient was admitted to the [facility]. MRI brain diffusion weighted images shows acute embolic infarcts in right CHAIR MENDER and L cerebellar. FLAIR shows old left MCA inferior division infarct. Interval Overnight History: 121/55. Neurological examination shows aphasia and right hemiparesis, NIHSS 10 (?-2, com-1, RUE-3, RLE-1, aphas-2, dys-1) Assessment/Plan: Eliquis related Acute left thalamic Intracerebral hemorrhage Post-bleed day # 3. Eliquis discontinued. Likely HTN hemorrhage. Continue Blood pressure control. On lisinopril, metoprolol. DVT prophylaxis with SCDs and heparin SQ. PT/OT consult-SNF. NPO- dobhoff for TF. Start Asa PBD #10 (10/27). FEES. Family was considering watchman prior to ICH bc of falls. Referral for outpatient eval for watchman in 2-3 mo. Mayra Mar MD Acute Occupational Therapy Treatment Prior Gross Functional Mobility: needs assist Current AM-PAC score(s): CURRENT AM-PAC Activity Raw Score: 9 Based on the above AM-PAC score(s), and OT clinical judgment, discharge destination recommendation is: Longterm Facility Barriers to discharge home: Patient needs assistance with ADLs, Patient needs assistance with IADLs (see note below) Mobility equipment available at home: ADL equipment available at home: shower chair, grab bars Equipment recommendations for discharge: Equipment issued: none Current therapy frequency recommendation(s) in acute: 5 times a week Precautions and Weightbearing Status: OT Existing Precautions/Restrictions: fall Lines/Tubes/Drains (Rehab Status): Telemetry, Nasogastric tube Patient Safety Communication Prior to Visit: Nursing Subjective: Pt agreeable to session. Pain: General Pain Documentation (Adult, OB, Peds) Presence of Pain: denies pain/discomfort Presence of Pain Score (Auto-calculated): 0 Objective/Observation: Vitals/Vitals Responses to Treatment: no adverse reaction to session O2 Device: room air Vision Screen Clinical Observations: Improving initiation of scanning to right environmentally to therapist voice/to retrieve items. Cues for RUE integration with increasing pt initiation. Cognition Overall Cognitive Status: Impaired Arousal/Alertness: Delayed responses to stimuli Orientation Level: Oriented to person Following Commands: Follows one step commands with increased time, Follows one step commands with repetition Safety Judgment: Decreased awareness of need for assistance, Decreased awareness of need for safety Awareness of Errors: Assistance required to identify errors made, Assistance required to correct errors made Deficits: Decreased awareness of deficits Attention Span: Attends with cues to redirect ADL Assessment/Intervention: Grooming Assistance: Maximal Grooming Location: edge of bed Grooming Deficit: Increased time to complete, Activity tolerance, Generalized weakness, Retrieval of items, Manipulation of items, Bringing items to mouth/face, Attention, Initiation, Problem solving, Follows safety/precautions Grooming Skilled Rationale (Verbal/Tactile/Visual/Demonstrat ion): Facilitate positioning, Facilitate postural control, Cues for cognitive deficit, Technique of activity, Cues for increased safety, Proximal support to increase distal control for task, Yfen-[id number]-[id number] assist, Visual scanning and environmental awareness, Physical demonstration provided Grooming Intervention/Details: Pt able to identify ADL items. Facilitated in washing face and applying chapstick; pt perseverates on nose; requires multimodal cues and occasional hand over hand assist to re-direct (i.e. washing all parts of face, chapstick to lips, etc.); proximal support to improve reach. Improved initiation for brushing hair, requiring assist to improve grasp/orientation of brush and proximal support/hand over hand assist to improve performance of hair brushing due to decreased strength/coordination. Overall increased time/cues for processing and motor planning. Cues for integration of BUEs. CGA for balance. LE Dressing Assistance: Total LE Dressing Location: bed level LE Dressing Deficit: Activity tolerance, Generalized weakness LE Dressing Skilled Rationale (Verbal/Tactile/Visual/Demonstrat ion): Technique of activity LE Dressing Intervention/Details: Pt able to identify socks/purpose appropriately. Extremity Assessments: See OT Evaluation flowsheet for Extremity Measurement updates. Balance: Sitting Balance Static Sitting-Level of Assistance: Contact guard Skilled Rationale: Verbal cues, Tactile cues, Positioning, Hand placement, Full extension to upright positioning/posture, Technique of activity, Initiation and execution of task, Cues for increased safety Sitting Balance Skilled Intervention/Details: Tolerated ~15 minutes while facilitated in visual scanning, postural control, ADL engagement, command following, and functional reaching/UE use. No overt LOB. Mobility Assessment/Intervention: Supine to Sit Mobility Kirvin Level: Supine->Sit: minimum assist (75% patient effort) Bed Features/Set-up: Supine->Sit: Head of bed elevated Skilled Rationale: Verbal cues, Positioning, Technique of activity, Initiation and execution of task, Cues for increased safety, Visual cues Skilled Intervention/Details: Supine->Sit: Multimodal cues for initiation; increased time to complete. Sit to Supine Mobility Kirvin Level: Sit->Supine: moderate assist (50% patient effort) Bed Features/Set-up: Sit->Supine: Head of bed elevated Skilled Rationale: Verbal cues, Tactile cues, Positioning, Technique of activity, Initiation and execution of task, Cues for increased safety Skilled Intervention/Details: Sit->Supine: Multimodal cues. Transfer Assessment/Intervention: Sit to Stand Transfer Kirvin Level: Sit->Stand: moderate assist (50% patient effort) Physical Assist: Sit->Stand: 2 person assist Assistive Device: Sit->Stand: gait belt, arm in arm Skilled Rationale: Verbal cues, Tactile cues, Positioning, Hand placement, Full extension to upright positioning/posture, Finding/maintaining midline positioning, Technique of activity, Initiation and execution of task, Cues for increased safety Skilled Intervention/Details: Sit->Stand: x1 from EOB, x1 from recliner. Multimodal cues for positioning, hand placement and initiation. Bed-Chair Transfer Kirvin Level: Bed<->Chair: maximum assist (25% patient effort) Physical Assist: Bed<->Chair: 2 person assist Assistive Device: Bed<->Chair: gait belt, arm in arm Skilled Rationale: Verbal cues, Tactile cues, Positioning, Sequencing, Hand placement, Full extension to upright positioning/posture, Controlled descent for sitting, Technique of activity, Initiation and execution of task, Cues for increased safety Skilled Intervention/Details: Bed<->Chair: x1 EOB to/from recliner. Multimodal cues for initiation/sequencing, requiring increased assist to pivot due to minimal advancing of LEs. Outcome Score(s): CURRENT AM-PAC Daily Activity Inpatient Short Form Putting on/Taking Off Lower Body Clothin - Total Assistance Bathin - A Lot of Assistance Toiletin - Total Assistance Putting on/Taking Off Upper Body Clothin - A Lot of Assistance Groomin - A Lot of Assistance Eatin - Total Assistance CURRENT AM-PAC Activity Raw Score: 9 CURRENT AM-PAC Activity Functional Limitation/Modifier: 79.59% Currently Impaired in Daily Activity - CL Assessment & Plan: Patient progressing toward goals this date with improving ADL engagement, visual scanning and active engagement/initiation ot tasks; improving balance at EOB with CGA and functional transfers with mod-max Ax2. Patient will continue to benefit from skilled OT services to address cognition, vision, ROM, strength, coordination, activity tolerance, balance, functional transfers/mobility and ADLs for improved safety/independence with occupational performance. Patient Instruction/Education this session: Learners: Patient Education provided: Activity outside of therapy, Balance training, Functional transfers, Plan of care, Role of this discipline, Safety (Orientation) Teaching method: Verbal Education/Instruction, Simulation Learner response: Needs review Learning considerations: Cognition Plan for next session: ADL engagement and RUE use, functional transfers Acute OT Goals Plan of Care by Mara Pan OT at 10/21/2024 11:35 AM Version 1 of 1 Problem: OT - ADLs Goal: Grooming - Patient will complete grooming edge of bed with minimal assistance for improved ability to safely complete ADLs. Outcome: Progressing Problem: OT - Transfers Goal: Transfers Toilet/ Bedside Commode - Patient will transfer to/from toilet/bedside commode with minimal assistance for improved ability to safely complete ADLs. Outcome: Progressing Problem: OT - Strength/ROM Goal: Neuro Re-education - Patient will participate in neuro re-ed of right upper extremity with minimal assistance and 75% accuracy for improved functional use in ADLs. Outcome: Progressing Problem: OT - Cognition Goal: Cognition Simple ADL - Patient will demonstrate improved cognition, completing simple ADL task for 5 minutes with no greater than min cues required to maintain attention. Outcome: Progressing Problem: OT - Vision Goal: Visual Scanning ADL - Patient will employ use of visual compensatory strategies with no greater than min cues in 5/5 trials to increase participation and safety in ADLs. Outcome: Progressing Problem: OT - ADLs Goal: Bathing - Patient will perform full body bathing routine with moderate assistance while seated for improved ability to complete self-care activities Outcome: Ongoing OT treatment consisted of the following to work and progress towards the above goal(s): OT Evaluation and Treatment Time Self Care/Home Management (ADLs) Time Entry: 14 Therapeutic Activity Time Entry: 10 Treating Therapist: Mara Pan OT Additional Details: OT Co-Eval/Treatment Information Co-evaluation/co-treatment performed?: Yes, simultaneous billable skilled care was necessary due to medical complexity and functional deficits Other discipline: PT Rationale for need to co-eval/treat: postural control, coordination Co-treatment goal focus: self-care, coordination PPE used during patient interaction: gloves Patient location at end of session: bed with head of bed elevated Alarms on at end of session: bed alarm, wrist restraints Needs in reach. Time In: 1111 Time Out: 1135 Total Visit Time: 24 minutes Total Treatment Time (skilled, billable minutes): 24 minutes Upon discontinuation of Acute Care Occupational Therapy Services or patient discharge from the hospital this note represents the current Occupational Therapy Discharge Summary. Acute Physical Therapy Treatment Prior Gross Functional Mobility: needs assist Current AM-PAC score(s): CURRENT AM-PAC Mobility Raw Score: 10 Based on the above AM-PAC score(s) and PT clinical judgment, patient is a good candidate for discharge to Longterm Facility Barriers to discharge home: Patient needs assistance with functional mobility Mobility equipment available at home: ADL equipment available at home: shower chair, grab bars Equipment needed for discharge: to be determined Current therapy frequency recommendation in acute: PT Therapy Frequency: 5 times a week Activity Recommendations for outside of rehab session: 2 person stand pivot transfer with gait belt Precautions and Weightbearing Status: Existing Precautions/Restrictions: fall Lines/Tubes/Drains (Rehab Status): Telemetry Patient Safety Communication Prior to Visit: Nursing Subjective: Pt agreed to PT Pain: General Pain Documentation (Adult, OB, Peds) Presence of Pain: denies pain/discomfort Presence of Pain Score (Auto-calculated): 0 Objective/Observation: Vitals/Vitals Responses to Treatment: no adverse response to PT O2 Device: room air Cognition Overall Cognitive Status: Impaired Arousal/Alertness: Delayed responses to stimuli Orientation Level: (at least to person) Following Commands: Follows one step commands with repetition, Follows one step commands with increased time Safety Judgment: Decreased awareness of need for safety, Decreased awareness of need for assistance Awareness of Errors: Assistance required to identify errors made, Assistance required to correct errors made Deficits: Decreased awareness of deficits Extremity Assessments: See PT Evaluation flowsheet for Extremity Measurement updates. Skin and Edema: Balance: Sitting Balance Static Sitting-Level of Assistance: Contact guard Skilled Rationale: Verbal cues, Tactile cues, Hand placement, Full extension to upright positioning/posture, Technique of activity Sitting Balance Skilled Intervention/Details: Static sitting balance with flexed posture: verbal/tactile cues for upright posture. Mobility Assessment/Intervention: Supine to Sit Mobility Kirvin Level: Supine->Sit: minimum assist (75% patient effort) Bed Features/Set-up: Supine->Sit: Head of bed elevated Skilled Rationale: Verbal cues, Tactile cues, Hand placement, Full extension to upright positioning/posture, Technique of activity Skilled Intervention/Details: Supine->Sit: verbal/tactile cues for instruction on transfer technique and min A For trunk management Sit to Supine Mobility Kirvin Level: Sit->Supine: moderate assist (50% patient effort) Bed Features/Set-up: Sit->Supine: Head of bed elevated Skilled Rationale: Verbal cues, Tactile cues, Hand placement, Technique of activity Skilled Intervention/Details: Sit->Supine: verbal/tactile cues for instruction on transfer technique and mod A For trunk management Transfer Assessment/Intervention: Sit to Stand Transfer Kirvin Level: Sit->Stand: moderate assist (50% patient effort) Physical Assist: Sit->Stand: 2 person assist Assistive Device: Sit->Stand: gait belt Skilled Rationale: Verbal cues, Tactile cues, Hand placement, Technique of activity Skilled Intervention/Details: Sit->Stand: x2 trials with verbal/tactile cues for instruction on transfer technique and hand placement. Bed-Chair Transfer Kirvin Level: Bed<->Chair: maximum assist (25% patient effort) Physical Assist: Bed<->Chair: 2 person assist Assistive Device: Bed<->Chair: gait belt Skilled Rationale: Verbal cues, Tactile cues, Hand placement, Technique of activity Skilled Intervention/Details: Bed<->Chair: verbal/tactile cues for instruction on transfer technqiue and sequencing. x2 trials (x1 trial to left, x1 trial to right.) Outcome Score(s): CURRENT AM-PAC Basic Mobility Inpatient Short Form Turning over in bed: 3 - A Little Assistance Moving from lying on back to sittin - A Little Assistance Moving to and from bed to chair: 1 - Total Assistance Sitting/standing from chair: 1 - Total Assistance Walk in hospital room: 1 - Total Assistance Climbing 3-5 steps with a railin - Total Assistance CURRENT [facility] Mobility Raw Score: 10 CURRENT [facility] Mobility Functional Limitation: 76.75% Impaired in Basic Mobility Assessment & Plan: Pt tolerated PT session well with focus on supine to/from sit transfers, sitting balance, sit to/from stand transfers, and stand pivot transfers. Pt would benefit from continued PT services to address deficits/impairments including: decreased strength, decreased balance, decreased functional endurance, impaired bed mobility, and altered gait mechanics in order to progress I with functional mobility. Patient Instruction/Education this session: Learners: Patient Education provided: Plan of care Plan for next session: progress transers, balance Acute PT Goals Plan of Care by Maite Casarez PT at 10/21/2024 2:07 PM Version 1 of 1 Problem: PT - General Goals Goal: Supine <-> Sit Transfers - Patient will perform supine to/from sit transfers with contact guard assistance and with use of hospital bed features in order to improve functional mobility and safety. Outcome: Progressing Goal: Sit <-> Stand Transfers - Patient will perform sit to/from stand transfers with minimal assistance and least restrictive device in order to improve functional mobility and safety. Outcome: Progressing PT treatment consisted of the following to progress towards the above goal(s): PT Evaluation and Treatment Time Therapeutic Activity Time Entry: 24 Treating Therapist: Maite Casarez PT Additional Details: PT Co-Eval/Treatment Information Co-evaluation/co-treatment performed?: Yes, simultaneous billable skilled care was necessary due to medical complexity and functional deficits Other discipline: OT Rationale for need to co-eval/treat: postural control Co-treatment goal focus: balance, mobility, transfer PPE used during patient interaction: gloves Patient location at end of session: bed with head of bed elevated Alarms on at end of session: bed alarm, wrist restraints, RN aware Needs in reach. Time In: 1111 Time Out: 1135 Total Visit Time: 24 minutes Total Treatment Time (skilled, billable minutes): 24 minutes Upon discontinuation of Acute Care Physical Therapy Services or patient discharge from the hospital this note represents the current Physical Therapy Discharge Summary. Acute Care Speech Language Pathology Treatment Diet Recommendations: Recommended Method of Nutrition: NPO, no oral diet recommended Recommended Medication Administration (as appropriate per MD): Non-Oral Type of Cues/Supervision: total assistance (with limited ice chips following thorough oral care as appropriate) Assistance: nurse/aide *Consider limited ice chips following oral care, given strict 1:1 RN supervision to assist in secretions clearance and reduce risk of disuse atrophy. *To prevent potential development of aspiration pneumonia/nosocomial infections, RECOMMEND: Oral care routine q4h and HOB upright as tolerated Best mode of Communication: no reliable mode of communication - inconsistent responses observed with yes/no questions and command following Communication Strategies: reduce background noise/distractions, present basic yes/no questions, provide repetition and modeling as able Discharge Recommendations: Based on the below outcome measures/assessment score(s), and SUPERVISOR OF INSTRUCTION clinical judgment, discharge destination recommendation is: Pending instumental swallow assessment Barriers to discharge home: Inability to communicate basic wants/needs Supporting factors for discharge setting: Impaired speech and language skills limiting ability to communicate basic wants/needs, Impaired swallow function limiting nutritional status and safety with oral intake Acute SUPERVISOR OF INSTRUCTION Outcomes Tracking Communicate basic wants and needs?: no Basic wants and needs - Details: expressive deficits impacting, yes/no responses are inconsistent Demo insight/appreciation of deficits?: unable to determine Complete basic problem solving?: unable to determine Current therapy frequency recommendation in acute: Speech/Lang/Cog Therapy Frequency: 3 times a week Swallow Therapy Frequency: 5 times a week Clinical Swallow Impression: Patient presents with presumed component of oropharyngeal dysphagia in the setting of admission for 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 Improved awake/alertness and participation in PO trials this visit. Patient accepting all trials via spoon/straw presentation well. Observed delayed cough following thin x1. Vocals remaining clear. Discussed with team plan for instrumental assessment of swallow prior to diet initiation to determine safest diet recommendations. Appears FEES is not appropriate at this time as patient now with wrist restraints given attempts for pulling at current feeding tube and patient turning head from stim to nose. Appears MBS may be more appropriate at this time as able. Recommend continue NPO with non-oral nutrition/hydration/meds pending completion of instrumental. Consider allowance of minimal ice chips prn following thorough oral care with staff assist as tolerating for comfort and reduce risk for disuse atrophy. SUPERVISOR OF INSTRUCTION to follow. 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 Continues with a strength in automatic speech tasks. Minimal cueing for initiation to complete this date. Improvements noted in naming tangible objects with use of sentence completion cueing. Continues with inconsistent yes/no responses and command following. Expressive output continues marked by fluent, incoherent speech with phonemic paraphasias, neologisms, and jargon. Noted imprecise articulations with speech output impacting intelligibility at times. SUPERVISOR OF INSTRUCTION will continue to follow for speech/language tx to improve independence with communicating wants/needs. Subjective information: Patient sitting upright in bed awake and alert. Cooperative and agreeable to session. Ongoing expressive deficits noted throughout session with fluent jargon output. Pain: General Pain Documentation (Adult, OB, Peds) Presence of Pain: denies pain/discomfort Presence of Pain Score (Auto-calculated): 0 Precautions: Patient Safety Communication Prior to Visit: Nursing, Physician Lines/Tubes/Drains (Rehab Status): Telemetry Existing Precautions/Restrictions: fall Respiratory Status: Room Air Acute SUPERVISOR OF INSTRUCTION Goals Plan of Care by ULISES Leija at 10/21/2024 10:20 AM Version 1 of 1 Problem: SUPERVISOR OF INSTRUCTION - Language Goal: Command Following - Patient will complete 1-step commands with 75% accuracy with no cues in order to improve direction following for functional gains in ability to participate more independently in care Outcome: Ongoing Tx: Patient followed basic single step commands with 29% accuracy independently. Improved to 57% accuracy given min cues and modeling. Continue goal. Goal: Yes/No Response - Patient will answer yes/no questions related to current situation/environment with 90% accuracy with no cues in order to improve ability to answer questions related to care Outcome: Ongoing Tx: Not directly assessed this date, continues to appear inconsistent with responses in non-structured questions presented. Continue goal. Goal: Automatic Speech - Patient will complete automatic speech tasks with 100% accuracy given fading cues to improve word-finding and functional communication Outcome: Ongoing Tx: Patient demonstrating strength with automatic speech tasks. Counted 05-03 , given standby cueing for initiation, April-February given standby cues for initiation across all the above. Patient perseverating on counting with ABHIJIT and months of the year initially benefiting from cues for initiation of correct automatic. Continue goal. Goal: Name Basic Objects/Pictures - Patient will name basic objects/pictures with 75% accuracy, with fading cues in order to improve word-finding and functional communication Outcome: Ongoing Tx: Patient named basic tangible objects presented with 60% accuracy independently. Improved to 90% accuracy given min/mod sentence completion cueing. Continue goal. Goal: Object Identification by Name - Patient will complete identification tasks to select target item by name in field of 2 in 75% of opportunities with fading cues in order to demonstrate readiness for augmentative and alternative communication. Outcome: Ongoing Tx: Did not directly assess this date. NEW Goal: Dysphagia Goal: MBS - Patient will participate in Modified Barium Swallow (MBS) Study to objectively assess oropharyngeal swallow function to most appropriately guide SUPERVISOR OF INSTRUCTION plan of care Outcome: Ongoing Problem: Dysphagia Goal: FEES - Patient will participate in Fiberoptic Endoscopic Evaluation of Swallowing (FEES) study to objectively assess pharyngeal swallow function to most appropriately guide SUPERVISOR OF INSTRUCTION plan of care Outcome: Not Met Tx: FEES deferred day prior given increase in NIH and drowsiness with patient deemed not appropriate for participation. Improved participation in trials at bedside this visit. Patient however now requiring wrist restraints with intermittent attempts to remove DHT. Given minimal stim to outer nose this visit patient continued to slightly turn head away from SUPERVISOR OF INSTRUCTION. Does not appear FEES would be appropriate at this time, rather MBS may be more appropriate to instrumentally assess swallow safety/efficiency. Goal note met given the above. Goal: Dysphagia Goal: Ongoing Assessment - Patient will participate in ongoing assessment by accepting various PO consistency trials with appropriate participation/oral acceptance and no significant respiratory complications to determine readiness for instrumental Outcome: Met Tx: SUPERVISOR OF INSTRUCTION assisted with oral care utilizing suction toothbrush. Patient tolerated well given total assist to complete. Patient consumed trials of cie x3, thin via tsp x3, and thin via straw sip x3. Noted delayed cough x1 following straw sip. No further s/s of aspiration throughout remaining consumed. Patient will benefit from instrumental assessment of swallow to further assess safety/efficiency prior to diet initiation. Discussed with team - will tentatively plan for MBS as FEES does not appear appropriate at this time - see above. Goal MET Patient Education/Instruction Learners: Patient Education provided: Role of this discipline, Plan of care, Dysphagia recommendations/impressions Teaching method: Verbal Education/Instruction Learner response: No evidence of learning, Needs review (impacted by expressive/receptive deficits impacting) Learning preferences: Auditory Learning considerations: Speech expression, Speech comprehension Stroke education: Role of rehabilitation discipline Plan for next session: 10/21: good - MBS SUPERVISOR OF INSTRUCTION Outcomes: FOIS 1 Speech Language Pathologist: ULISES Leija Time In: 1020 Time Out: 1051 Total Visit Time: 31 minutes Total Treatment Time (skilled, billable minutes): 31 minutes Non-billable assistance during session: n/a Assisted by during session: n/a PPE used during patient interaction: facemask, gloves Patient location/status at end of session: bed with head of bed elevated, RN aware Patient alarms at end of session: wrist restraints, none altered Needs in reach. SUPERVISOR OF INSTRUCTION Evaluation and Treatment Time Speech Therapy - Individual 63146: 16 Swallowing Dysfunction Treatment 01113: 15 Upon discontinuation of Acute Care Speech Therapy Services or patient discharge from the hospital this note represents the current Speech Therapy Discharge Summary Neurovascular Stroke Service Intracerebral Hemorrhage Note IDENTIFYING INFORMATION Behzad Hay MR# [id number] 10/21/2024 HISTORY OF PRESENT ILLNESS Behzad Hay is a 84 y.o. female with a history of afib on eliquis (LD 7/7 AM), HTN, HLD who presents from [place] with L thalamic ICH. LKW 2100 10/17. Pt reportedly awoke at 0600 on 10/18 with some R sided weakness and was found by her home health aide at 0900 slumped against the wall with R sided weakness, R facial droop and dysarthria. NIHSS on arrival to [facility] ED 16 (2, 1 commands, 1 L gaze pref, 1 L facial droop, 2 R arm, 2 L leg, 3 R leg, 2 aphasia, 2 dysarthria). CTH at OSH with L thalamic IPH. CTA at OSH with no acute abnormalities. Repeat CTH at [facility] with redemonstration of known L thalamic ICH and remote L MCA territory infarct. BP on arrival 148/76. INTERVAL HISTORY 10/18: Admitted to [facility]U for frequent neuro check 10/19: Transfer to [place] service 10/20: drowsy today after receiving Seroquel overnight, repeat CTH stable, increase metoprolol for afib RVR 10/21: improved exam today, SUPERVISOR OF INSTRUCTION re-eval pending, lisinopril increased to home dose PHYSICAL EXAM Gen: alert, NAD HEENT: normocephalic, no scalp lesions or tenderness, PERRLA, EOMI Neck: trachea midline, no JVD CV: +S1S2, RRR, no m/r/g Lungs: LCTA bilaterally with equal chest rise Abd: soft, nontender, nondistended, +BS x4 quadrants Extrem: Warm and well perfused, no cyanosis, clubbing, edema, 2+ pulses bilaterally Neuro: Lethargic, expressive aphasia, garbled/incoherent, follows some simple commands, R hemiparesis CN II visual snyder full to confrontation without visual extinction CN III, IV, PERRL. L gaze preference, crosses midline CN V CN VII R facial droop CN VIII hearing grossly intact to voice CN IX & X Dysarthria/garbled speech CN XI shoulder shrug full strength bilaterally CNXII tongue protrudes midline MOTOR EXAMINATION: R hemiparesis NIHSS Provider NIH Stroke Scale NIH Interval (Provider): daily NIH Level of Conciousness (Provider): 0 NIH LOC Questions (Provider): 2 NIH LOC Commands (Provider): 1 NIH Best Gaze (Provider): 1 NIH Visual (Provider): 0 NIH Facial Palsy (Provider): 1 NIH Left Arm Motor (Provider): 0 NIH Right Arm Motor (Provider): 2 NIH Left Leg Motor (Provider): 0 NIH Right Leg Motor (Provider): 1 NIH Limb Ataxia (Provider): 0 NIH Sensory (Provider): 0 NIH Best Language (Provider): 2 NIH Dysarthria (Provider): 2 NIH Extinction and Inattention (Provider): 0 NIH Total Score (Provider): 12 Intracerebral Hemorrhage Volume ICH Volume Date of Scan: 10/18/24 Time of Scan: 1347 (A) Maximum Length (cm): 1.1 cm (B) Perpendicular Length (cm): 1.8 cm (C) Number of Slices: 3 (C) Slice Thickness (cm) : 0.5 cm ICH Volume (ml) (Calculated Score): 1.49 Intracerebral Hemorrhage Score Intracerebral Hemorrhage (ICH) Scale Paul Coma Scale Points: 1-->GCS 5-12 Age>/=80: 1-->yes Infratentorial Origin of Hemorrhage?: 0-->no ICH Volume >/= 30cm(3): 0-->no (less than 30cm(3)) Intraventricular Hemorrhage?: 0-->no ICH Score (Calculated): 2 Score 30 Day Mortality following ICH 0 0% Mortality 1 13% Mortality 2 26% Mortality 3 72% Mortality 4 97% Mortality 5 100% Mortality ASSESSMENT AND PLAN Neuro: Acute left BG ICH 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 CTA brain/neck: No acute findings 6 hr CTH:Stable exam. Acute left thalamic hemorrhage with mild surrounding vasogenic edema. 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 MRI brain: Left thalamic hemorrhage as noted on October 18, 2024 CT head. Punctate right occipital and left cerebellar acute infarcts. Remote left MCA territory infarct. CTH follow up: Stable left thalamic parenchymal hematoma with mildly increased edema. No significant mass effect TTE: EF 61%, LDL 73, A1c 5.4 Etiology: Likely hypertensive Antiplatelet plan: plan to start Aspirin 81 mg post stroke day #10 (10/27/24) Anticoagulation plan: TBD on outpatient basis in 2-3 months neurovascular follow up. Referral for cardiology ordered for Watchman consideration as family/patient had already been considering prior to hemorrhagic stroke Blood pressure goal: normotension Hemorrhagic Stroke Core Measures -NHISS on admission 16 -Patient has been started on Mechanical (SCD's) and Pharmacological (SQ heparin) DVT prophylaxis started after stable HCT. -Antiplatelet therapy is not indicated. -Anticoagulation therapy not indicated in hemorrhagic stroke -Patients LDL 73 and HgbA1c 5.4 were checked and the patient will be discharged on a lipid lowering Statin medication if LDL is greater than 100. -Dysphagia screening ordered, and will be completed prior to patient receiving oral intake. -Stroke education booklet has been provided both written and verbal education to the patient and family regarding hemorrhagic strokes. We have reviewed the patient's personal modifiable risk factors including: HTN, on eliquis as well as education on reducing these risk factors. -Patient is being assessed for Rehab by PT/OT/Speech and PM&R if indicated. Other problems: Complexity. Wound Documentation Any conditions listed below are present on admission unless otherwise specified. . Essential HTN - Home antihypertensives: lisinopril 10mg BID and metoprolol 25mg BID - Current regimen: - lisinopril 10mg BID - metoprolol 25mg BID - PRN labetalol and hydralazine -10/21 lisinopril increased to home dose 10mg BID HLD -hold home atorvastatin 40mg due to elevated LFTs on admission, downtrended, likely resume at discharge Atrial Fibrillation - On home eliquis 2.5mg BID (LD 10/18 AM) --> held in setting of acute bleed - received Kcentra at OSH - continue metoprolol 25mg BID for rate control - Antiplatelet plan: plan to start Aspirin 81 mg post stroke day #10 (10/27/24) - Anticoagulation plan: TBD on outpatient basis in 2-3 months neurovascular follow up. Referral for cardiology ordered for Watchman consideration as family/patient had already been considering prior to hemorrhagic stroke Dysphagia - 2/2 stroke - Continue DHT and TF; FEES when medically appropriate - 10/21 improved neuro exam, requested SUPERVISOR OF INSTRUCTION re-eval Elevated LFTs (POA) - elevated on admit, repeat LFTs downtrended Fall Risk: Assessed for patient fall risk and discussed safety measures during rounding. Disposition: Behzad Hay will likely be discharged to pending medical readiness Jesus Yang APRN-AVIATION ELECTRONIC WARFARE OPERATOR 10/21/2024 11:54 AM VITAL SIGNS Temp: [97.5 F (36.4 C)-99.7 F (37.6 C)] 97.8 F (36.6 C) Pulse (Heart Rate): [83-104] 88 Resp Rate: [17-22] 18 BP: (121-180)/(55-103) 123/66 O2 Sat (%): [96 %-100 %] 98 % Oxygen Therapy: Oxygen Therapy O2 Sat (%): 98 % O2 Device: room air Intake/Output: Intake/Output Summary (Last 24 hours) at 10/21/2024 1154 Last data filed at 10/21/2024 0600 Gross per 24 hour Intake 985.17 ml Output 400 ml Net 585.17 ml LABS/CULTURES Lab Results Component Value Date WBC 10.43 10/21/2024 HGB 14.3 10/21/2024 HCT 44.6 (H) 10/21/2024 PLATELET 333 10/21/2024 MCV 96.5 10/21/2024 Lab Results Component Value Date SODIUM 138 10/21/2024 POTASSIUM 4.4 10/21/2024 CHLORIDE 103 10/21/2024 CO2 26 10/21/2024 BUN 21 10/21/2024 CREATSERUM 0.78 10/21/2024 GLUCOSE 106 10/21/2024 Lab Results Component Value Date CHOLESTEROL 140 10/18/2024 TRIG 106 10/18/2024 HDL 46 10/18/2024 LDLCALC 73 10/18/2024 Lab Results Component Value Date HGBA1C 5.4 10/18/2024 Lab Results Component Value Date ALBUMIN 3.9 10/19/2024 , No results found for: "CPK", TROP IMAGING/DIAGNOSTIC STUDIES MEDICATIONS heparin 5,000 Units Subcutaneous Q8H 0800/1600/2200 Lisinopril 10 mg Per NG tube Q12H Metoprolol 25 mg Per NG tube Q12H Senna 8.6 mg Per NG tube Daily Water liquid (free water) 30 mL Per NG tube Q4H REID Gomez 10/21/2024 11:54 AM VITAL SIGNS Temp: [97.5 F (36.4 C)-99.7 F (37.6 C)] 97.8 F (36.6 C) Pulse (Heart Rate): [83-104] 88 Resp Rate: [17-22] 18 BP: (121-180)/(55-103) 123/66 O2 Sat (%): [96 %-100 %] 98 % IMAGING/DIAGNOSTIC STUDIES MEDICATIONS heparin 5,000 Units Subcutaneous Q8H 0800/1600/2200 Lisinopril 10 mg Per NG tube Q12H Metoprolol 25 mg Per NG tube Q12H Senna 8.6 mg Per NG tube Daily Water liquid (free water) 30 mL Per NG tube Q4H Cosigned by Mayra Mar MD at 10/22/2024 10:05 PM EDT Stroke Attending Addendum (Late entry for 10/20/24): I have interviewed and examined patient. I have reviewed Jesus Yang CNP's note and agree with the following highlights, additions, and addendums: The patient is a 84 y.o.female with a history of Atrial fibrillation on eliquis, hypertension, hyperlipidemia who on 10/18/24 6a awoke with right hemiparesis (LKN 2100 prior to bed). At the [place] [facility] CT brain showed a left thalamic intracerebral hemorrhage and remote left inferior division MCA infarct. OSH CT angiogram head/neck negative. She was given K Centra. She was transferred to [facility] ER and on arrival NIHSS was 16. LDL 73, HgbA1c 5.4. The patient was admitted to the NCCU. MRI brain diffusion weighted images shows acute right CHAIR MENDER and L cerebellar infarct. FLAIR shows old left MCA inferior division infarct. Interval Overnight History: 132/67. Agitated O/N given Seroquel, then was Sleepy, repeat CT brain stable. Afib with RVR overnight. Neurological examination shows sleepy patient. Assessment/Plan: Eliquis related Acute left thalamic Intracerebral hemorrhage Post-bleed day # 2. Eliquis discontinued. Likely HTN hemorrhage. Continue Blood pressure control. On lisinopril, metop. DVT prophylaxis with SCDs and heparin SQ . PT/OT consult. NPO- dobhoff for TF. Start Asa PBD #10. FEES when awake. Increase metoprolol.T Mayra Mar MD Speech Language Pathology Attempt Note 10/20/2024 SUPERVISOR OF INSTRUCTION Therapy Completed: Attempted Attempted Reason: Patient is not medically optimized to tolerate therapy program (Deferred plan for FEES this AM given increase in NIH score overnight with increased somnolence this date. Discussed with RN and patient deemed not appropriate. Attempted to see patient at bedside this afternoon to assess readiness for FEES next date, however patient resting asleep in bed and per daughter at bedside difficult to fully awaken to appropriate level at this time. Daughter noting that patient able to awaken for brief periods, however falls back asleep quickly. Given this, SUPERVISOR OF INSTRUCTION to defer bedside assessment. Will plan to complete current FEES orders. SUPERVISOR OF INSTRUCTION to follow and assess readiness for instrumental assessment as patient is appropriate). No charge. ULISES Leija Time In: 1536 Time Out: 1540 Total Visit Time: 4 minutes Total Treatment Time (skilled, billable minutes): 0 minutes Discharge Planning Assessment Is the patient able to participate in the assessment?: No Explanation of why patient is unable to participate: AMS Care Management Plan CM met with patient's daughter at bedside. Daughter stated patient lives a home and has Home PT and SN through [facility] and has stake setter. Patient was recently at [facility]. Daughter would like her to return, CM explained patient is pending Therapy evaluations and recommendations, patient also need a short term nutritional plan. CM will follow and assist with discharge planning. Initial Discharge Planning Expected Discharge Disposition: Longterm Facility Transportation Available for Discharge: Ambulance Anticipated DME: unknown at this time Anticipated Services at Discharge: Physical Therapy, Occupational Therapy, Outpatient follow up, Longterm, Speech Therapy Patient Assessment Completed: Initial Legal Next of Kin Does the patient have a Guardian?: No Spouse: No Adult Child(yenifer), List All Adult Children: Yes Name and Contact information: Aditi Carvalho [phone] Would you like to add additional adult children?: Yes Name and Contact information: Art Hay [phone] Reviewed and Updated in Demographics? : Yes Advanced Care Planning Has the patient completed Advance Directives?: Completed, Not Available in Medical Record Copy of Advance Directives was requested?: Yes Advance Directives Requested From: Requested daughter email to CM Medication Management Does the patient have prescription insurance coverage? : Yes Is the patient on Anticoagulation? : Yes Provider or Clinic that manages Anticoagulation?: [facility] [address] [place] [address] [address] [facility] [address] Living Environment and Support System Is the patient from a facility or usp?: No Living Environment: House Patient Caregiving Responsibilities: Self Patient-identified caregiver/support network: (Patient unable to respond) Who does the patient identify as a teachable caregiver(s)?: Child(yenifer) - Independent Services Does the patient use a home health or hospice agency?: Yes - home health Agency Name and Contact : [facility] Current Home Services: Nursing, PT Would you like to add additional home health or hospice agencies?: Yes Agency Name and Contact: [facility] stake setter Current with dialysis?: No Does the patient use any community programs or services?: No Does patient use DME? : walker, bedside commode, shower seat Does the patient use oxygen?: No Does patient use medical supplies? : none Anticipated Changes Related to Illness/Injury? : Yes Inability to care for self?: Yes Inability to care for dependents?: N/A Inability to return to school/work?: N/A Initial ADLs Prior to Arrival What is the patient's reported baseline physical functioning prior to this acute illness?: assist with ADLs What is the patient's reported baseline cognitive functioning prior to this acute illness?: assist with decision making Is the patient's baseline functioning changed by this acute illness? : Yes Changes observed : Physical, Cognitive Concerns with patient being able to care for themselves at home? : Yes PAM Fleming, [place] Communication Consultant Available by Secure Chat Neurovascular Stroke Service Intracerebral Hemorrhage Note IDENTIFYING INFORMATION Behzad Hay MR# [id number] 10/20/2024 HISTORY OF PRESENT ILLNESS Behzad Hay is a 84 y.o. female with a history of afib on eliquis (LD 7 AM), HTN, HLD who presents from [place] with L thalamic ICH. LKW 2100 10/17. Pt reportedly awoke at 0600 on 10/18 with some R sided weakness and was found by her home health aide at 0900 slumped against the wall with R sided weakness, R facial droop and dysarthria. NIHSS on arrival to [facility] ED 16 (2, 1 commands, 1 L gaze pref, 1 L facial droop, 2 R arm, 2 L leg, 3 R leg, 2 aphasia, 2 dysarthria). CTH at OSH with L thalamic IPH. CTA at OSH with no acute abnormalities. Repeat CTH at [facility] with redemonstration of known L thalamic ICH and remote L MCA territory infarct. BP on arrival 148/76. INTERVAL HISTORY 10/18: Admitted to NCCU for frequent neuro check 10/19: Transfer to [place] service 10/20: drowsy today after receiving Seroquel overnight, repeat CTH stable, increase metoprolol for afib RVR PHYSICAL EXAM Gen: lethargic, NAD HEENT: normocephalic, no scalp lesions or tenderness, PERRLA, EOMI Neck: trachea midline, no JVD CV: +S1S2, RRR, no m/r/g Lungs: LCTA bilaterally with equal chest rise Abd: soft, nontender, nondistended, +BS x4 quadrants Extrem: Warm and well perfused, no cyanosis, clubbing, edema, 2+ pulses bilaterally Neuro: Lethargic, expressive aphasia, garbled/incoherent, generalized weakness more in right than left CN II visual snyder full to confrontation without visual extinction CN III, IV, PERRL. L gaze preference, crosses midline CN V unable to assess CN VII R facial droop CN VIII hearing grossly intact to voice CN IX & X Dysarthria/garbled speech CN XI shoulder shrug full strength bilaterally CNXII tongue protrudes midline MOTOR EXAMINATION: generalized weakness more in right than left NIHSS Provider NIH Stroke Scale NIH Interval (Provider): daily NIH Level of Conciousness (Provider): 2 NIH LOC Questions (Provider): 2 NIH LOC Commands (Provider): 2 NIH Best Gaze (Provider): 1 NIH Visual (Provider): 0 NIH Facial Palsy (Provider): 1 NIH Left Arm Motor (Provider): 2 NIH Right Arm Motor (Provider): 3 NIH Left Leg Motor (Provider): 3 NIH Right Leg Motor (Provider): 3 NIH Limb Ataxia (Provider): 0 NIH Sensory (Provider): 0 NIH Best Language (Provider): 2 NIH Dysarthria (Provider): 2 NIH Extinction and Inattention (Provider): 0 NIH Total Score (Provider): 23 Intracerebral Hemorrhage Volume ICH Volume Date of Scan: 10/18/24 Time of Scan: 1347 (A) Maximum Length (cm): 1.1 cm (B) Perpendicular Length (cm): 1.8 cm (C) Number of Slices: 3 (C) Slice Thickness (cm) : 0.5 c [facility] 11-15-2024 Hospital Discharge instructions Reta Galarza COMMUNITY RELATIONS OFFICER-AVIATION ELECTRONIC WARFARE OPERATOR - 11/15/2024 3:10 PM EDT Please take these discharge instructions to your primary care doctor follow appointment to show them,keep them for your reference and refer to them often for follow up appointments. It is best to write your appointments on a personal calendar so you do not miss them. Call if you need to change any appointments please. Keep an up-to-date medication list with you at all times. Stroke Education: visit [email or web address] What are the most common symptoms of stroke? The following are the most common symptoms of stroke. However, each individual may experience symptoms differently. If any of these symptoms are present, call 911 (or your local ambulance service) immediately. Treatment is most effective when started immediately. Symptoms may be sudden and include: -Weakness or numbness of the face, arm, or leg, especially on one side of the body -Confusion or difficulty speaking or understanding -Problems with vision such as dimness or loss of vision in one or both eyes -Dizziness or problems with balance or coordination -Problems with movement or walking -Severe headaches with no other known cause, especially if sudden onset All of the above warning signs may not occur with each stroke. Do not ignore any of the warning signs, even if they go away - take action immediately. The symptoms of stroke may resemble other medical conditions or problems. Always consult your physician for a diagnosis. We have provided both written and verbal education to the patient and family regarding ischemic and hemorrhagic strokes. We have discussed the warning signs/symptoms as well as causes of stroke. We have discussed the importance of activating 911/EMS in the event of these symptoms. We have reviewed the patient's personal risk factors as well as education on reducing these risk factors. Neurovascular Stroke Center Personalized Stroke Treatment Plan My Stroke Type: [x] Ischemic Stroke (Blockage of blood flow to the brain) [x] Hemorrhagic Stroke (Bleeding in the brain) [] TIA- Transient Ischemic Attack (mini-stroke) My Risk Factors Include: [x] High Blood Pressure [] Diabetes [x] High Cholesterol [] Heart Disease [x] Atrial Fibrillation (Irregular Heart Rate) [] Smoking/Vaping/E-Cigarettes [] Obesity [] Clotting Disorder [] Alcohol Abuse [] Drug Abuse [] Prior History [] Family History [] Obstructive Sleep Apnea My Follow-Up Treatment Goals: [x] Blood Pressure < 140/90 [] Stop Smoking, Vaping, and/or using E-Cigarettes Immediately [x] LDL < 70 [] HgA1C levels < 7% [] Decrease BMI to < 25 [x] Take all ordered medications [x] Avoid non-prescription or ydhs-yvm-puvswcw medication not cleared by your physician [x] Limit Alcohol use to no more than 1 drink per day for females and 2 drinks per day for males [] Do not drive until cleared [x] Follow up with PCP (Primary Care Provider) within a week of discharge to home [x] Follow-up with Neurovascular (Stroke Doctor) [x] Follow-up with Occupational,physical and speech therapy if ordered [x] Watch out for depression and seek treatment if needed Patient Stroke Resources CONTACTS FOR NEUROVASCULAR SERVICE: - Please first consider reaching out to your PCP (Primary Care Provider) for ongoing care needs and guidance. - You may call the neurovascular doctors office at [phone], if you have questions Mon-Fri between 8:30 am and 4:30 pm. - For off hours or the weekend you may call the office or the hospital multicut line operator at and ask for the stroke resident supervisor production managing to be paged. - If you have any other questions or needs, please call Adrian Platt RN, Stroke Nurse Navigator at [phone] Mon-Fri between 7:00am and 3:00pm. - Additional assistance may be found by reaching out to our Case Management Office at [phone]. *In the event of an Emergency: If you have a physical or psychiatric emergency call [phone] or go to your local emergency department. You should also call your outpatient provider's emergency number. Other reference numbers: [facility] Intake Office at [phone]; [facility] at [phone]; or Suicide Prevention Hotline at 007-964-6150. *Helpful phone numbers: Free Crisis Hotline: 1-559-529-MSEV ( ) Suicide Hotline: 267.721.2101 Seniors Suicide Hotline: 997.767.2473 [facility] Youth: 337.370.9933 [facility] [place]: 171.724.3380 (free counseling) [facility] Access Hotline: 350-364-ZDUJ (483-894-2944) 24-hour crisis text hotline: Text the word "4hope" to 950-546 for crisis support. Texting this number is free if you have Verizon, T-Mobile, AT[employer] or Sprint. [facility] Financial Assistance: If you want to learn more about these programs, please call .There are three programs to help you with the cost of your medical care: Medicaid, Hospital Care Assurance Program (HCAP) & philipp If you are without Insurance and believe you may qualify for Medicaid/public assistance: The [facility] Department of Job and Family Services can now process garrett (TANF), food (SNAP) and Medicaid Applications over the phone. Please call [phone] ([phone]) and apply over the phone or apply online at www.benefits.[place].gov. Friday-Friday 8am-12pm noon. Medication Assistance Programs [employer] members can buy 100+ common prescriptions for FREE, $3 or $6. Annual membership is $36 for individuals and $72 for families (up to 6 people, including pets). Sign up online or enroll at your nearest pharmacy! [employer], web site can provide a significant number of coupons for medications at a much lower vyas. [place] Department of Aging The Department of Aging administers programs and services to meet the needs of older [place]. Services and resources offered per county may include transportation, housekeeping, meals and nutrition, personal care, case management, safety monitoring, home medical equipment, legal services, financial services officer, health and wellness, education, caregiver support, respite care, etc. Call to be connected to the area agency on aging serving your community or visit aging.[place].gov/find-services. Request a consultation with a community resource expert at ltssi.age.[place].gov/ [facility] Stroke Support The [facility] Stroke Support Group is for stroke survivors, friends, and family members. Meets on the Friday of each month from 6:30pm-7:30pm at [facility] ([address]; [place] [address]). Contact Reema Horne, at [phone] or [email or web address]. If you are outside of the [place] area, contact The [place] Stroke Association at www.stroke.org or 1-898-5-STROKE or for support groups in your area. You may also refer to the Your Care after a Stroke education booklet at go.[facility].edu/nuvw0621 for additional resources. REID Canales - 11/15/2024 3:08 PM EDT Know your medicines Make sure you know why you are taking each medicine. Make a master list of all your medicines. Write down the medicine names and doctors' names. Include doses and side effects too. And write down why you take each medicine. Include all prescription and bojx-gdc-zrbraqj medicines, vitamins, and supplements. Keep this list up to date. Take a copy to each doctor visit. Know when you will run out of each medicine. Ask your pharmacist if there are ways the drugstore can remind you to refill your medicines so you do not run out. Write refill reminders on your calendar. Don't wait until you have a few pills left. Ask your pharmacist to plan your refills so that you can pickup driver all your medicines at the same time. This can mean fewer trips to the drugstore. If we have prescribed you a new medication during your stay, please contact with your primary physician for refills REID Canales - 11/15/2024 3:08 PM EDT Activity -- Please follow these instructions: -Advance your activity as you can tolerate - You may walk all you want. You may go up and down the steps. Use the railing for support - It is normal for your energy level and sleep patterns to change after a stroke - Take rest periods during the day as needed - Complete recovery may take several weeks, months, up to a year. Patience is strange. REID Canales - 11/15/2024 3:09 PM EDT Tube feeds via PEG tube Recommended Method of Nutrition: NPO, no oral diet recommended Recommended Medication Administration (as appropriate per MD): Non-Oral Type of Cues/Supervision: 1:1 assistance For more information, we encourage you to visit iddsi.org and review patient handouts designed for adults (found under "resources"). REID Canales - 11/15/2024 3:09 PM EDT Notify Your Doctor if you have any of the following: NEUROLOGICAL CHANGES-- Change in alertness Increased sleepiness Nausea and vomiting New onset of numbness or weakness in arms or legs New problems with your bowels or bladder New or worse problems with balance or walking Seizures, new or worsening UNRELIEVED HEADACHE PAIN-- New or increased pain unrelieved with pain medications Pain associated with nausea and vomiting Pain associated with other symptoms QUESTIONS OR PROBLEMS-- Any questions or problems that you are unsure about Deep Vein Thrombosis Symptoms Call your doctor or nurse right away if you have any signs of blood clots such as -Tender, swollen or reddened areas anywhere in your leg. -Numbness or tingling in your lower leg or calf, or at the top of your leg or groin -Skin on you leg looks pale or blue or feels cold to touch -Chest pain or have trouble breathing -Fever or chills documented in this encounter [facility] 11-11-2024 Telephone encounter Note Fax received and placed on provider desk Winsome Butler MA November 11, 2024 9:20 AM [facility] 11-11-2024 Miscellaneous Notes Fax received and placed on provider desk Winsome Butler MA November 11, 2024 9:20 AM Crystal Stroke Nurse Navigator with [facility] called and reports Pt's daughter wanted her PCP to refer Pt to Neurovascular Ambulatory. She reports they like them to start 4-6 weeks after discharge, and she hasn't been discharged yet. She is going to fax over their Neurovascular Ambulator [facility] in the [place] Area to fax # [phone]. Molly Adame RN documented in this encounter [facility] 11-10-2024 Telephone encounter Note Crystal Stroke Nurse Navigator with [facility] called and reports Pt's daughter wanted her PCP to refer Pt to Neurovascular Ambulatory. She reports they like them to start 4-6 weeks after discharge, and she hasn't been discharged yet. She is going to fax over their Neurovascular Ambulator [facility] in the [place] Area to fax # [phone]. Molly Adame RN [facility] 11-09-2024 Procedure note Associated Ord er(s): FLEXIBLE ENDOSCOPIC EVALUATION OF SWALLOWING Images from the original note were not included. Acute Care Speech-Language Pathology Flexible Endoscopic Evaluation of Swallowing (FEES) Clinical Recommendations Method of Nutrition: NPO, no oral diet recommended, Long-term enteral nutrition Medication Administration: Non-Oral Type of Cues/Supervision: 1:1 assistance Assistance: family, nurse/aide Consider ice chips following oral care, given strict 1:1 assistance to assist in secretions clearance and reduce risk of disuse atrophy. *To prevent potential development of aspiration pneumonia/nosocomial infections, RECOMMEND: Oral care routine q4h and HOB upright as tolerated Therapy frequency recommendation(s) in acute: 3 times a week Discharge destination recommendation: Longterm Facility Barriers to discharge home: Need for 1:1 assist to ensure safety with all PO intake, Inability to communicate basic wants/needs Supporting factors for discharge setting: Impaired speech and language skills limiting ability to communicate basic wants/needs, Impaired swallow function limiting nutritional status and safety with oral intake Pain General Pain Documentation (Adult, OB, Peds) Presence of Pain: not present: non-verbal indicator of pain/discomfort Presence of Pain Score (Auto-calculated): 0 Comfort/Acceptable General Pain Level/Goal: 0 DVPRS (Defense and Veterans Pain Rating Scale) DVPRS: Rest: (facial grimace of pain and pt unable to lay still/trying to change positions in bed) DVPRS: Activity: (pt with facial grimace of pain and try to change positions in bed) Precautions Patient Safety Communication Prior to Visit: Nursing Lines/Tubes/Drains (Rehab Status): Nasogastric tube Systems Review Onset of Illness/Injury or Surgery Date (SUPERVISOR OF INSTRUCTION): 10/18/24 Communication Status: Aphasic Hearing Acuity: Not impaired Behavioral Observations: cooperative, pleasant Respiratory Status O2 Device: room air O2 Sat (%): 97 % Resp Rate: 16 Acute SUPERVISOR OF INSTRUCTION Outcomes Tracking Communicate basic wants and needs?: no Demo insight/appreciation of deficits?: unable to determine Complete basic problem solving?: unable to determine History of Present Illness: per chart, Behzad Hay is a 84 y.o. female who was admitted on 10/18/2024 per chart: "history of afib on eliquis (LD 10/18 AM), HTN, HLD who presents from [place] with L thalamic ICH. LKW 2100 10/17. Pt reportedly awoke at 0600 on 10/18 with some R sided weakness and was found by her home health aide at 0900 slumped against the wall with R sided weakness, R facial droop and dysarthria. NIHSS on arrival to [facility] ED 16 (2, 1 commands, 1 L gaze pref, 1 L facial droop, 2 R arm, 2 L leg, 3 R leg, 2 aphasia, 2 dysarthria). CTH at OSH with L thalamic IPH. CTA at OSH with no acute abnormalities. Repeat CTH at [facility] with redemonstration of known L thalamic ICH and remote L MCA territory infarct. BP on arrival 148/76. SUPERVISOR OF INSTRUCTION History: Previous Clinical Swallow Eval: Yes Previous Swallow Therapy: Yes Previous MBS: Yes Previous FEES: Yes Prior Results: MBS 10/26/2024: Impressions: Behzad Hay presents with moderate oropharyngeal dysphagia (per DIGEST and FLOWER) in the setting of admission for acute L thalamic IPH, 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 Oral phase characterized by difficulty siphoning from the straw, anterior loss of bolus, and slowed oral transit and oral holding with all consistencies. Patient required extended time as well as maximum cues from SUPERVISOR OF INSTRUCTION (verbal, empty spoon, liquid wash) to swallow puree solids. Noted posterior loss of bolus to the pyriforms with thin liquids. Patient noted to hold material in oral cavity throughout evaluation that would intermittently progress to the pharynx. Pharyngeal phase characterized by reduced hyolaryngeal elevation and incomplete epiglottic inversion. As trials progressed, noted increased difficulty clearing oral cavity as well as consistently accepting trials. Physiologic impairments along with inconsistent timing of the swallow result in sensate aspiration of thin liquids. No aspiration with mildly thick liquids or puree solids. However, given consistent oral holding with all consistencies and progression of material in oral cavity to the pharynx, combined with mental status, patient remains at risk for aspiration of residue. Patient unable to follow commands to implement strategies. Given above, recommend continue NPO and meds non-oral. Recommend patient have ice chips and sips of water with 1:1 supervision for comfort and to reduce risk of disuse atrophy. Patient would benefit from ongoing SUPERVISOR OF INSTRUCTION services for dysphagia management, would consider bolus trials at the bedside to ensure oral clearance. SUPERVISOR OF INSTRUCTION to follow. 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 Oral phase not directly visualized. Suspect some delayed AP transit but no gross anterior loss. Pharyngeal phase assessment overall limited by reduced visualization with baseline anatomy- appreciate pt tolerating scope without issues. Incomplete epiglottic inversion with suspect approximation of posterior pharyngeal wall consistently impacting. Variable complete glottic closure. Penetration prior to swallow and suspect during swallow leading to aspiration event with thin liquids (sensate cough), at least progression to cords with thickened liquids, aspiration event with puree solids (silent). Relatively functional pharyngeal efficiency without significant residue. Per the Dynamic Image Grade of Swallow Toxicity (DIGEST), safety was rated a 3 (severely unsafe) and efficiency was rated a 1 (mildly inefficient). With regard to safety and efficiency, swallowing function was rated 3, most consistent with severe risk of nutrition or aspiration related complications. Pt currently unable to follow command for functional use of strategies. Thickened liquids questionably effective to reduce airway events. In weighing the patient's deficits against the aforementioned DIGEST scale, recommend continued NPO and nonoral meds. Nursing communication order for ice chips with nursing. Ongoing SUPERVISOR OF INSTRUCTION services for addressing bolus challenge trials, possible BRAYDEN if able to follow commands. Anticipate repeat study next week- recommend MBS given inability to visualize airway events and determine cough efficacy." Baseline method of nutrition: Oral nutrition/hydration Regular (IDDSI 7) Liquid - thin (IDDSI 0) Current method of nutrition: Short-term enteral nutrition Clinical Reasons for Exam Patient Reported Dysphagia Symptoms: No Reason(s) for Exam: Acute dysphagia, Recent neurological diagnosis Subjective: Pt asleep upon entry and easily rousable and agreeable to participate. Oral Mechanism Exam: Oral Mucosa Healthy appearing mucosa Oral Secretions Normal Dentition Natural Face: Sensory Function Did not test Face: Motor Function Asymmetry - left Mandible Did not test Lips Asymmetry - right Tongue Did not test Soft Palate Did not test Gag Response Did not test Neck and Shoulders Holds head upright without difficulty (generalized reduced ROM for shoulder shrug) Cranial Nerve Impairments CN VII Facial Nerve GRBAS: A perceptual rating scale for voice parameters, Rating scale of 0 to 3 (0 = no impairment, 1 = minimal to mild impairment, 2 = moderate impairment, 3 = severe impairment) Grade of dysphonia (G): 1 Roughness (R): 0 Breathiness (B): 0 Asthenia (A): 1 Strain (S): 0 FEES Procedure Details Procedure Performed & Read by: Shantal Mclean, SUPERVISOR OF INSTRUCTION Scope Serial #: [id number] Feeder Name: Clint, Med V Patient was positioned : High Mobley's (60-90 degrees). The flexible endoscope was passed through the nasal passage to the level of oropharynx. Food and liquids were tinted with food coloring for easier observation. The scope was passed through the right nares with (pt discomfort) difficulty. Clinical Anatomical Assessment Nasopharynx: Normal appearing structures and mucosa Oropharynx: Normal appearing structures and mucosa Hypopharynx: Edematous, Post cricoid edema True Vocal Cords - Left: Edema (limited view of posterior aspect given arytenoid edema/hooding) True Vocal Cords - Right: Edema (limited view of posterior aspect given arytenoid edema/hooding) Ventricular Folds: Compression Arytenoids: Edema, Hooding Subglottis: Unable to achieve adequate view (need to discuss) (given arytenoid edema/hooding) Secretion appearance: Clear, Copious Thin Liquid Barium: 1 tsp, Straw [place] Secretion Scale (NZSS) The [place] Secretion Scale (NZSS) has been developed for comprehensive assessment of accumulated secretions during endoscopy. The [place] Secretion Scale has potential to predict pneumonia in patients irrespective of their penetration/aspiration scores. The scale rates secretion severity under the subcategories location, amount and response. Patient's scores observed during today's assessment are: Location: Secretions in laryngeal vestibule (beyond healthy lubrication of mucosa) Amount in pyriform fossae: Secretions filling (80-100%) or over spilling pyriform fossae/interarytenoid space Response: Ineffective attempts to clear secretions from laryngeal vestibule Total (maximum 7): 6 Raúl A, Romaine A, Charisma Araiza, Chalino D, Isai S. Predictive Value of the [place] Secretion Scale (NZSS) for Pneumonia. Dysphagia. 2018 May;33(1):115-122. doi: 10.1007/k81126-510-9872-s. Epub 2016Dec 04. PMID: 92855964. Stark Secretion Scale (KEITH) The Stark Secretion Scale (KEITH) has been developed for a comprehensive assessment of accumulated secretions during endoscopy. Research has shown strong correlations between the Stark Secretion Scale and the Penetration-Aspiration Scale: the more severe the secretion, the higher the risk toward development of deeper penetration or aspiration. Patient's score observed during today's assessment is: 3: Most severe. Any secretions in the laryngeal vestibule. Pulmonary secretions included if not cleared at close of segment Bakari CW, Manuel CT, Maynor CC, Zaid CJ. Stark secretion scale and fiberoptic endoscopic evaluation of swallowing in predicting aspiration in dysphagic patients. Eur Arch Otorhinolaryngol. 2017 Rafa;274(6):0226-2344. doi: 10.1007/[id number]-a. Ep2016Jun 23. PMID: 89170086. Physiologic Assessment Velopharyngeal Closure: (incomplete) Base of Tongue Retraction: Symmetrical, adequate movement during speech and swallowing tasks Pharyngeal Wall Medialization: Incomplete movement Arytenoid Approximation: Complete bilateral movement True Vocal Cords (Left): (appeared WFL however limited visualization) True Vocal Cords (Right): (appeared WFL however limited visualization) Ventricular Folds: Compression Secretion appearance: Clear, Copious Consistency Tested Delivered via: Amount: Ice Spoon, Clinician fed x2 Thin Spoon, Straw, Clinician fed x2 tsp, x1 straw Liquid- mildly thick (IDDSI 2)/nectar Spoon, Clinician fed x1 Liquid- moderately thick (IDDSI 3)/honey Straw x2 Dysphagia- pureed (IDDSI 4) Spoon x2 Examination of Swallowing Tongue Control During Bolus Hold: (NA) Bolus Preparation/Mastication: Did not assess Initiation of Pharyngeal Swallow: Bolus head in pyriforms Pharyngeal Constriction: Appeared functional Nasopharyngeal entry: None Laryngeal Excursion: Present and appeared incomplete Epiglottic Retroflexion: Absent White-Out Duration (Visual Judgment): Incomplete Pharyngeal Residue: residue collection on pharyngeal structures Location of Pharyngeal Residue: valleculae, pyriform sinuses Backflow from esophagus: Present - unable to manage reflux events [place] Pharyngeal Residue Severity Rating Scale: Consistency: Ice, Thin, Mildly Thick Ice - Vallecula Residue: Trace: 1-5% trace coating of the mucosa Ice - Pyriform Sinus Residue: Mild: 5-25% up wall to quarter full Thin - Vallecula Residue: Trace: 1-5% trace coating of the mucosa Thin - Pyriform Sinus Residue: Mild: 5-25% up wall to quarter full Mildly Thick - Vallecula Residue: Trace: 1-5% trace coating of the mucosa Mildly Thick - Pyriform Sinus Residue: Trace: 1-5% trace coating of mucosa (Samina Santos, Lesli Zapata, & Rafiq Inman (2015). The ray pharyngeal residue severity rating scale: an anatomically defined and image-based tool. Dysphagia, 30, 521-526.) Penetration/Aspiration Scale: Ice: 5 - Material enters the airway, contacts the vocal folds, and is not ejected from the airway Thin: 8 - Material enters the airway, passes below the vocal folds, and no effort is made to eject, 7 - Material enters the airway, passes below the vocal folds, and is not ejected from the trachea despite effort Liquid- mildly thick (IDDSI 2)/nectar: 5 - Material enters the airway, contacts the vocal folds, and is not ejected from the airway Compensatory Strategies Trialed: (cued cough + re-swallow (pt intermittently following commands to implement)) Still Pictures/Video: See Flexible Endoscopic Evaluation Of Swallowing" under Procedures tab in I[facility]IS for all photos and videos recorded. Superior view of larynx during cued sustained phonation Aspiration of thin liquids before the swallow with frothy/bubbly secretions pooling in the pyriform sinuses and interarytenoid space Pharyngeal residue mixing with copious secretions after the swallow resulting in recurrent laryngeal penetration/ suspected aspiration in between swallows Swallowing Outcomes: Functional Oral Intake Scale: Level 1 - No oral intake Dysphagia Outcome Severity Scale (FLOWER): Level 2: Moderately severe dysphagia Assessment: Behzad Hay presents with moderate-severe pharyngeal dysphagia (Dysphagia Outcome and Severity Scale) in the setting of admission for acute L thalamic IPH, 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 Oral stage not directly observed given nature of view with FEES, however, pt noted with anterior loss of tsp sips of thin liquids. Swallow safety impairments characterized by deficits in reduced bolus control, decreased epiglottic retroversion, and timing of airway closure resulting in penetration and silent and sensate aspiration of thin liquids before the swallow. Mild pyriform residue observed, however pt with edematous bilateral arytenoids obscuring the pyriform sinus space with recurrent laryngeal penetration/suspected aspiration in between swallows across consistencies assessed mixing with poorly managed copious secretions. Pt required max cues for cued throat clear/re-swallow with inconsistent implementation. Noted impaired visualization of tracheal space given hooding/edema of bilateral arytenoids. Suspected esophageal backflow of secretions/mixed with liquids. Recommend NPO with allowance of ice chips after oral care with 1:1 assistance, and nutrition/medication via long-term alternate means if within pt/family goals of care. SUPERVISOR OF INSTRUCTION to continue to follow for therapeutic swallowing exercises and dynamic assessment of timing for repeat instrumental swallow assessment Rehab potential: good, to achieve stated therapy goals Plan for next session: 11/09: fair; dysphagia/lang tx Acute SUPERVISOR OF INSTRUCTION Goals Plan of Care by ULISES Leos at 11/09/2024 10:38 AM Version 1 of 1 Problem: Dysphagia Goal: BRAYDEN- Patient will complete isometric exercises (5 repetitions with a 10-second interval between the sets for a maximum of 2 sets) to improve pharyngeal swallow given fading verbal cues for form and pacing over x3-5 sessions 11/09/2024 1249 by ULISES Leos Outcome: Ongoing Goal: Bolus challenge - Patient will accept trials of thin liquids x10-15 trials, given moderate cues for use of strategies to improve bolus control/timing of swallow initiation with no signs of aspiration to determine readiness for repeat study 11/09/2024 1249 by ULISES Leos Outcome: Ongoing Goal: Swallow Strategy (Oral)- Patient will utilize trained swallow strategies: multiple swallows, liquid wash during PO trials of puree solids/IDDSI 4 with moderate cues to demonstrate improved oral efficiency and readiness for repeat instrumental. 11/09/2024 1249 by ULISES Leos Outcome: Not Met Goal: Education 1 - Patient and/or caregiver will verbalize 2-3 swallow deficits and ways to reduce risks associated with aspiration when provided minimal cues to improve insight and understanding regarding current oropharyngeal swallow function Outcome: Ongoing Patient Education/Instruction Learners: Patient Education provided: Role of this discipline, Plan of care Teaching method: Verbal Education/Instruction Learner response: Needs review Learning preferences: Auditory Learning considerations: Speech expression, Speech comprehension Stroke education: Role of rehabilitation discipline Patient Instruction/Education comments: Reviewed SUPERVISOR OF INSTRUCTION purpose and POC.Discussed ongoing NPO status and need for study in the future Speech Language Pathologist: ULISES Leos Time In: 947 Time Out: 1013 Total Visit Time: 25 minutes Total Treatment Time (skilled, billable minutes): 25 minutes Non-billable assistance during session: n/a Assisted by during session: n/a PPE used during patient interaction: gloves, respirator Patient location/status at end of session: bed with head of bed elevated, RN aware Patient alarms at end of session: none altered Upon discontinuation of Acute Care Speech Therapy Services or patient discharge from the hospital this note represents the current Speech Therapy Discharge Summary Associated Order(s): SPEECH MODIFIED BARIUM SWALLOW Acute Care Speech Language Pathology Modified Barium Swallow Evaluation Note Clinical Recommendations Method of Nutrition: NPO, no oral diet recommended Medication Administration: Non-Oral Type of Cues/Supervision: total assistance (ice chips, sips of water) Assistance: nurse/aide Other Recommendations: Oral care, Sips of water after oral care with direct supervision Therapy frequency recommendation(s) in acute: 5 times a week Discharge destination recommendation: Longterm Facility Barriers to discharge home: Need for 1:1 assist to ensure safety with all PO intake, Inability to communicate basic wants/needs Supporting factors for discharge setting: Impaired swallow function limiting nutritional status and safety with oral intake, Impaired speech and language skills limiting ability to communicate basic wants/needs Pain General Pain Documentation (Adult, OB, Peds) Presence of Pain: denies pain/discomfort Presence of Pain Score (Auto-calculated): 0 Comfort/Acceptable General Pain Level/Goal: 0 DVPRS (Defense and Veterans Pain Rating Scale) DVPRS: Rest: 4- mild pain DVPRS: Activity: 4- mild pain Precautions Patient Safety Communication Prior to Visit: Nursing Lines/Tubes/Drains (Rehab Status): Telemetry, Tube feeding Systems Review Communication Status: Aphasic Hearing Acuity: Not impaired Respiratory Status O2 Device: room air O2 Sat (%): 99 % Resp Rate: 20 Acute SUPERVISOR OF INSTRUCTION Outcomes Tracking Communicate basic wants and needs?: no Demo insight/appreciation of deficits?: unable to determine Complete basic problem solving?: unable to determine History of Present Illness: Behzad Hay is a 84 y.o. female who was admitted on 10/18/2024 per chart "with a history of afib on eliquis (LD 10/18 AM), HTN, HLD who presents from [place] with L thalamic ICH. LKW 2100 10/17. Pt reportedly awoke at 0600 on 10/18 with some R sided weakness and was found by her home health aide at 0900 slumped against the wall with R sided weakness, R facial droop and dysarthria. NIHSS on arrival to [facility] ED 16 (2, 1 commands, 1 L gaze pref, 1 L facial droop, 2 R arm, 2 L leg, 3 R leg, 2 aphasia, 2 dysarthria). CTH at OSH with L thalamic IPH. CTA at OSH with no acute abnormalities. Repeat CTH at [facility] with redemonstration of known L thalamic ICH and remote L MCA territory infarct. BP on arrival 148/76. INTERVAL HISTORY 10/18: Admitted to [facility] for frequent neuro check 10/19: Transfer to [place] service 10/20: drowsy today after receiving Seroquel overnight, repeat CTH stable, increase metoprolol for afib RVR 10/21: improved exam today, SUPERVISOR OF INSTRUCTION re-eval pending, lisinopril increased to home dose 10/22: improved neuro exam however failed FEES, re-eval Monday 10/23: Seroquel/restraints ON for agitation. 10/24: Abd discomfort, urinary retention requiring straight cath 10/25: Held Lisinopril, pending MBS, has required sitter overnight, started on Aspirin today 10/26: A fib RVR last night, UA concerning for UTI, started on Ceftriaxone, started on Cardura for urinary retention, MBS today" MRI Brain 10/19/2024: IMPRESSION: Left thalamic hemorrhage as noted on October 18, 2024 CT head. Punctate right occipital and left cerebellar acute infarcts. 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 Oral phase not directly visualized. Suspect some delayed AP transit but no gross anterior loss. Pharyngeal phase assessment overall limited by reduced visualization with baseline anatomy- appreciate pt tolerating scope without issues. Incomplete epiglottic inversion with suspect approximation of posterior pharyngeal wall consistently impacting. Variable complete glottic closure. Penetration prior to swallow and suspect during swallow leading to aspiration event with thin liquids (sensate cough), at least progression to cords with thickened liquids, aspiration event with puree solids (silent). Relatively functional pharyngeal efficiency without significant residue. Per the Dynamic Image Grade of Swallow Toxicity (DIGEST), safety was rated a 3 (severely unsafe) and efficiency was rated a 1 (mildly inefficient). With regard to safety and efficiency, swallowing function was rated 3, most consistent with severe risk of nutrition or aspiration related complications. Pt currently unable to follow command for functional use of strategies. Thickened liquids questionably effective to reduce airway events. In weighing the patient's deficits against the aforementioned DIGEST scale, recommend continued NPO and nonoral meds. Nursing communication order for ice chips with nursing. Ongoing SUPERVISOR OF INSTRUCTION services for addressing bolus challenge trials, possible BRAYDEN if able to follow commands. Anticipate repeat study next week- recommend MBS given inability to visualize airway events and determine cough efficacy." Baseline method of nutrition: Oral nutrition/hydration Regular (IDDSI 7) Liquid - thin (IDDSI 0) Current method of nutrition: Short-term enteral nutrition Clinical Reasons for Exam Patient Reported Dysphagia Symptoms: No Reason(s) for Exam: Acute dysphagia, Recent neurological diagnosis Subjective: Awake throughout, no verbalizations. Limited command following. Oral Mechanism Exam Oral Mucosa Healthy appearing mucosa Oral Secretions Normal Dentition Natural Face: Sensory Function Did not test Face: Motor Function Asymmetry - left Mandible Did not test Lips Asymmetry - right Tongue Did not test Soft Palate Did not test Gag Response Did not test Neck and Shoulders Holds head upright without difficulty (generalized reduced ROM for shoulder shrug) Cranial Nerve Impairments CN VII Facial Nerve GRBAS: A perceptual rating scale for voice parameters Rating scale of 0 to 3 (0 = no impairment, 1 = minimal to mild impairment, 2 = moderate impairment, 3 = severe impairment) Grade of dysphonia (G): 1 Roughness (R): 0 Breathiness (B): 0 Asthenia (A): 1 Strain (S): 0 Procedure Details: Patient was positioned : [facility] (60-90 degrees) Exam Was Conducted In: Lateral, 30 frames per second (fps) Barriers to Completion of A-P View: Cognitive/behavioral limitations Barriers for Adequate Visualization During Exam: None Consistencies Assessed: Thin Liquid Barium: 1 tsp, Straw Mildly Thick/[place] Liquid Barium: Straw Pudding Barium: Spoon Oral Phase Lip Closure: Escape through the lips (beyond chin) Tongue Control During Bolus Hold: Posterior escape of less than half of bolus Bolus Preparation/Mastication: Did not assess Bolus Transport/Lingual Motion: repetitive/disorganized tongue motion Oral Residue: residue collection on oral structures Location of Oral Residue: tongue, lateral sulci Initiation of Pharyngeal Swallow: bolus head in pyriforms Pharyngeal Phase Soft Palate Elevation: no bolus between soft palate and posterior pharyngeal wall Laryngeal Elevation: partial movement of thyroid cartilage and/or partial approximation of arytenoids to epiglottic petiole Anterior Hyoid Excursion: partial anterior movement Epiglottic Movement: partial inversion Laryngeal Vestibule Closure-Height of Swallow: incomplete Pharyngeal Stripping Wave: present - diminished Pharyngeal Contraction in A/P View: Unable to assess as A-P view not completed Pharyngoesophageal Segment Opening: complete distention and complete duration, no obstruction of flow Tongue Base Retraction: narrow column of contrast between tongue base and posterior pharyngeal wall Pharyngeal Residue: residue collection on pharyngeal structures Location of Pharyngeal Residue: valleculae, pyriform sinuses Esophageal Phase Esophageal Clearance In The Upright Position: Unable to fully assess via complete esophageal screen Penetration/Aspiration Scale: Thin: 1 - Material does not enter the airway, 2 - Material enters the airway, remains above the vocal folds and is ejected from the airway, 8 - Material enters the airway, passes below the vocal folds, and no effort is made to eject Liquid- mildly thick (IDDSI 2)/nectar: 2 - Material enters the airway, remains above the vocal folds, and is ejected from the airway Dysphagia- pureed (IDDSI 4) via tsp: 1 - Material does not enter the airway Compensatory Strategies Trialed: Liquid wash Liquid Wash: Effective to reduce residue Swallowing Outcomes: Functional Oral Intake Scale: Level 2 - Tube dependent with minimal/inconsistent oral intake Dysphagia Outcome Severity Scale (FLOWER): Level 3: Moderate dysphagia Dynamic Imaging Grade of Swallowing Toxicity (DIGEST) DIGEST Safety Grade: S2 (Moderate) DIGEST Efficiency Grade: E1 (Mild) DIGEST Ratin (Moderate Impressions: Behzad Hay presents with moderate oropharyngeal dysphagia (per DIGEST and FLOWER) in the setting of admission for acute L thalamic IPH, 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 Oral phase characterized by difficulty siphoning from the straw, anterior loss of bolus, and slowed oral transit and oral holding with all consistencies. Patient required extended time as well as maximum cues from SUPERVISOR OF INSTRUCTION (verbal, empty spoon, liquid wash) to swallow puree solids. Noted posterior loss of bolus to the pyriforms with thin liquids. Patient noted to hold material in oral cavity throughout evaluation that would intermittently progress to the pharynx. Pharyngeal phase characterized by reduced hyolaryngeal elevation and incomplete epiglottic inversion. As trials progressed, noted increased difficulty clearing oral cavity as well as consistently accepting trials. Physiologic impairments along with inconsistent timing of the swallow result in sensate aspiration of thin liquids. No aspiration with mildly thick liquids or puree solids. However, given consistent oral holding with all consistencies and progression of material in oral cavity to the pharynx, combined with mental status, patient remains at risk for aspiration of residue. Patient unable to follow commands to implement strategies. Given above, recommend continue NPO and meds non-oral. Recommend patient have ice chips and sips of water with 1:1 supervision for comfort and to reduce risk of disuse atrophy. Patient would benefit from ongoing SUPERVISOR OF INSTRUCTION services for dysphagia management, would consider bolus trials at the bedside to ensure oral clearance. SUPERVISOR OF INSTRUCTION to follow. Rehab potential: good, to achieve stated therapy goals Plan for next session: 10/26- ongoing bolus challenge trials Recommended Rehab Activities: Bolus challenge swallows Acute SUPERVISOR OF INSTRUCTION Goals Plan of Care by Sheree Mckenzie, ULISES at 10/26/2024 1:30 PM Version 1 of 1 Problem: Dysphagia Goal: Swallow x2 - Pt will swallow therapeutic PO trials of moderately thick liquids/IDDSI 3 x10 trials given moderate cues for use of swallow x2 strategy to improve bolus efficiency to facilitate readiness for repeat study Outcome: Met Goal: Bolus challenge - Patient will accept trials of thin liquids x10-15 trials, given moderate cues for use of strategies to improve bolus control/timing of swallow initiation with no signs of aspiration to determine readiness for repeat study Outcome: Met Goal: BRAYDEN- Patient will complete isometric exercises (5 repetitions with a 10-second interval between the sets for a maximum of 2 sets) to improve pharyngeal swallow given fading verbal cues for form and pacing over x3-5 sessions Outcome: Ongoing Goal: Bolus challenge - Patient will accept trials of thin liquids x10-15 trials, given moderate cues for use of strategies to improve bolus control/timing of swallow initiation with no signs of aspiration to determine readiness for repeat study Outcome: Ongoing Goal: Swallow Strategy (Oral)- Patient will utilize trained swallow strategies: multiple swallows, liquid wash during PO trials of puree solids/IDDSI 4 with moderate cues to demonstrate improved oral efficiency and readiness for repeat instrumental. Outcome: Ongoing Patient Education/Instruction Learners: Patient Education provided: Dysphagia recommendations/impressions, Role of this discipline, Plan of care Teaching method: Verbal Education/Instruction Learner response: No evidence of learning Learning preferences: Auditory Learning considerations: Speech expression, Speech comprehension Stroke education: Role of rehabilitation discipline Speech Language Pathologist: ULISES Matta Time In: 1330 Time Out: 1350 Total Visit Time: 20 minutes Total Treatment Time (skilled, billable minutes): 20 minutes Initial Evaluation/Screen Completed?: yes PPE used during patient interaction: gloves Patient location/status at end of session: bed with head of bed elevated Patient alarms at end of session: none altered SUPERVISOR OF INSTRUCTION Evaluation and Treatment Time MBS/Motion Fluoroscopic Swallowing Eval 78216: 20 Upon discontinuation of Acute Care Speech Therapy Services or patient discharge from the hospital this note represents the current Speech Therapy Discharge Summary Associated Order(s): FLEXIBLE ENDOSCOPIC EVALUATION OF SWALLOWING Images from the original note were not included. Acute Care Speech-Language Pathology Flexible Endoscopic Evaluation of Swallowing (FEES) Clinical Recommendations Method of Nutrition: NPO, no oral diet recommended Medication Administration: Non-Oral *Consider limited ice chips following oral care, given strict 1:1 RN supervision to assist in secretions clearance and reduce risk of disuse atrophy. *To prevent potential development of aspiration pneumonia/nosocomial infections, RECOMMEND: Oral care routine q4h and HOB upright as tolerated Therapy frequency recommendation(s) in acute: 5 times a week Discharge destination recommendation: Longterm Facility Barriers to discharge home: Need for 1:1 assist to ensure safety with all PO intake Supporting factors for discharge setting: Impaired swallow function limiting nutritional status and safety with oral intake Pain General Pain Documentation (Adult, OB, Peds) Presence of Pain: denies pain/discomfort Presence of Pain Score (Auto-calculated): 0 Precautions Patient Safety Communication Prior to Visit: Nursing Lines/Tubes/Drains (Rehab Status): Telemetry, Tube feeding Systems Review Onset of Illness/Injury or Surgery Date (SUPERVISOR OF INSTRUCTION): 10/18/24 (date of admission) Communication Status: Aphasic Hearing Acuity: Not impaired Behavioral Observations: cooperative, pleasant Respiratory Status O2 Device: room air O2 Sat (%): 98 % Resp Rate: 18 Acute SUPERVISOR OF INSTRUCTION Outcomes Tracking Communicate basic wants and needs?: (emerging) Demo insight/appreciation of deficits?: no Complete basic problem solving?: (limited assessment, suspect emerging) History of Present Illness: Behzad Hay is a 84 y.o. female who was admitted on 10/18/2024 per chart: "history of afib on eliquis (LD 7/7 AM), HTN, HLD who presents from [place] with L thalamic ICH. LKW 10/17. Pt reportedly awoke at 0600 on 10/18 with some R sided weakness and was found by her home health aide at 0900 slumped against the wall with R sided weakness, R facial droop and dysarthria. NIHSS on arrival to [facility] ED 16 (2, 1 commands, 1 L gaze pref, 1 L facial droop, 2 R arm, 2 L leg, 3 R leg, 2 aphasia, 2 dysarthria). CTH at OSH with L thalamic IPH. CTA at OSH with no acute abnormalities. Repeat CTH at [facility] with redemonstration of known L thalamic ICH and remote L MCA territory infarct. BP on arrival 148/76. INTERVAL HISTORY 10/18: Admitted to [facility] for frequent neuro check 10/19: Transfer to [place] service 10/20: drowsy today after receiving Seroquel overnight, repeat CTH stable, increase metoprolol for afib RVR 10/21: improved exam today, SUPERVISOR OF INSTRUCTION re-eval pending, lisinopril increased to home dose 10/22: improved neuro exam however failed FEES, re-eval Friday history of afib on eliquis (LD 77 AM), HTN, HLD who presents from [place] with L thalamic ICH. LKW 10/17. Pt reportedly awoke at 0600 on 10/18 with some R sided weakness and was found by her home health aide at 0900 slumped against the wall with R sided weakness, R facial droop and dysarthria. NIHSS on arrival to [facility] ED 16 (2, 1 commands, 1 L gaze pref, 1 L facial droop, 2 R arm, 2 L leg, 3 R leg, 2 aphasia, 2 dysarthria). CTH at OSH with L thalamic IPH. CTA at OSH with no acute abnormalities. Repeat CTH at [facility] with redemonstration of known L thalamic ICH and remote L MCA territory infarct. BP on arrival 148/76. INTERVAL HISTORY 10/18: Admitted to [facility] for frequent neuro check 10/19: Transfer to [place] service 10/20: drowsy today after receiving Seroquel overnight, repeat CTH stable, increase metoprolol for afib RVR 10/21: improved exam today, SUPERVISOR OF INSTRUCTION re-eval pending, lisinopril increased to home dose 10/22: improved neuro exam however failed FEES" Prior Medical History: - SUPERVISOR OF INSTRUCTION History: Previous Clinical Swallow Eval: No Previous Swallow Therapy: No Previous MBS: No Previous FEES: No Prior Results: Home Health SUPERVISOR OF INSTRUCTION note 10/14/2024: ASSESSMENT: Patient demonstrated a need for further skilled ST services for instruction and education related to cognitive linguistic skills, language skills and speech skills. Plan of care and visit frequency Reviewed with patient. Current Discharge plan: self-care and family support; anticipated discharge date 11/13/24. RECOMMENDATION: Recommend continued speech therapy intervention 1w4 to focus on cognitive linguistic skills, language skills and speech skills." Baseline method of nutrition: Oral nutrition/hydration Regular (IDDSI 7) Liquid - thin (IDDSI 0) Current method of nutrition: Short-term enteral nutrition (NPO) Clinical Reasons for Exam Patient Reported Dysphagia Symptoms: No Reason(s) for Exam: Acute dysphagia, Recent neurological diagnosis Subjective: Seen at bedside, alert and pleasant throughout however mentation impacting consistent command following during study Oral Mechanism Exam: Oral Mucosa Healthy appearing mucosa Oral Secretions Normal Dentition Natural Face: Sensory Function Did not test Face: Motor Function Asymmetry - right Mandible Functional bilateral symmetry, range of motion and perceived strength of masseter and temporal muscles Lips Asymmetry - right Tongue (midline protrusion, cues for complete ROM to R side) Soft Palate Did not test Gag Response Did not test Neck and Shoulders Holds head upright without difficulty (generalized reduced ROM for shoulder shrug) Cranial Nerve Impairments CN VII Facial Nerve GRBAS: A perceptual rating scale for voice parameters, Rating scale of 0 to 3 (0 = no impairment, 1 = minimal to mild impairment, 2 = moderate impairment, 3 = severe impairment) Grade of dysphonia (G): 1 Roughness (R): 0 Breathiness (B): 0 Asthenia (A): 1 Strain (S): 0 FEES Procedure Details Procedure Performed & Read by: Yola Selio, SUPERVISOR OF INSTRUCTION Scope Serial #: [id number] Feeder Name: Baldemar Jaramillo Patient was positioned : [place] (60-90 degrees). The flexible endoscope was passed through the nasal passage to the level of oropharynx. Food and liquids were tinted with food coloring for easier observation. The scope was passed through the right nares without difficulty. Clinical Anatomical Assessment Nasopharynx: Normal appearing structures and mucosa Oropharynx: Normal appearing structures and mucosa Hypopharynx: Normal appearing structures and mucosa True Vocal Cords - Left: (limited view of posterior due to positioning/arytenoid hooding - appears WNL) True Vocal Cords - Right: (limited view of posterior due to positioning/arytenoid hooding - appears WNL) Ventricular Folds: Compression Arytenoids: Normal appearance, Hooding Subglottis: Unable to achieve adequate view (need to discuss) Secretion appearance: Clear, Copious (bubbly) [place] Secretion Scale (NZSS) The [place] Secretion Scale (NZSS) has been developed for comprehensive assessment of accumulated secretions during endoscopy. The [place] Secretion Scale has potential to predict pneumonia in patients irrespective of their penetration/aspiration scores. The scale rates secretion severity under the subcategories location, amount and response. Patient's scores observed during today's assessment are: Location: Secretions in laryngeal vestibule (beyond healthy lubrication of mucosa) Amount in pyriform fossae: Secretions in pyriform fossae, not yet full (20-80%) Response: No response to secretions in laryngeal vestibule Total (maximum 7): 6 Miles A, Romaine A, Charisma Araiza, Chalino D, Isai S. Predictive Value of the [place] Secretion Scale (NZSS) for Pneumonia. Dysphagia. 2018 May;33(1):115-122. doi: 10.1007/[id number]-v. Epub 2016Dec 04. PMID: [id number]. Stark Secretion Scale (KEITH) The Stark Secretion Scale (KEITH) has been developed for a comprehensive assessment of accumulated secretions during endoscopy. Research has shown strong correlations between the [place] Secretion Scale and the Penetration-Aspiration Scale: the more severe the secretion, the higher the risk toward development of deeper penetration or aspiration. Patient's score observed during today's assessment is: 3: Most severe. Any secretions in the laryngeal vestibule. Pulmonary secretions included if not cleared at close of segment Bakari CW, Manuel CT, Maynor CC, Zaid CJ. Stark secretion scale and fiberoptic endoscopic evaluation of swallowing in predicting aspiration in dysphagic patients. Eur Arch Otorhinolaryngol. 2017 Rafa;274(6):7396-0076. doi: 10.1007/[id number]. Epub 2016Jun 23. PMID: [id number]. Physiologic Assessment Velopharyngeal Closure: (incomplete) Base of Tongue Retraction: (symmetrical, limited range of motion with pt inability to follow commands) Pharyngeal Wall Medialization: (limited movement/assessment) Arytenoid Approximation: Complete bilateral movement True Vocal Cords (Left): (apeared WFL- limited visualiztion) True Vocal Cords (Right): (apeared WFL- limited visualiztion) Ventricular Folds: Compression Secretion appearance: Clear, Copious (bubbly) Consistency Tested Delivered via: Amount: Ice Spoon x3 Thin Spoon, Straw tsp (1), straw x3 Liquid- mildly thick (IDDSI 2)/nectar Straw x4 Liquid- moderately thick (IDDSI 3)/honey Straw x2 Dysphagia- pureed (IDDSI 4) Spoon x2 Examination of Swallowing Tongue Control During Bolus Hold: (NA) Bolus Preparation/Mastication: Did not assess Initiation of Pharyngeal Swallow: Bolus head in pyriforms (va laryngeal vestibule) Pharyngeal Constriction: Appeared functional Nasopharyngeal entry: None Laryngeal Excursion: Present and appeared incomplete Epiglottic Retroflexion: Absent White-Out Duration (Visual Judgment): Complete Backflow from esophagus: None Ray Pharyngeal Residue Severity Rating Scale: Consistency: Ice, Thin, Mildly Thick, Moderately Thick, Pureed Ice - Vallecula Residue: Trace: 1-5% trace coating of the mucosa Ice - Pyriform Sinus Residue: Trace: 1-5% trace coating of mucosa Thin - Vallecula Residue: Mild: 5-25% epiglottic ligament visible Thin - Pyriform Sinus Residue: Trace: 1-5% trace coating of mucosa Mildly Thick - Vallecula Residue: Mild: 5-25% epiglottic ligament visible Mildly Thick - Pyriform Sinus Residue: Mild: 5-25% up wall to quarter full Moderately Thick - Vallecula Residue: Mild: 5-25% epiglottic ligament visible Moderately Thick - Pyriform Sinus Residue: Mild: 5-25% up wall to quarter full Pureed - Vallecula Residue: Mild: 5-25% epiglottic ligament visible Pureed - Pyriform Sinus Residue: Mild: 5-25% up wall to quarter full (Samina Santos, Lesli Zapata, & Brittney Inman. (2015). The waverly pharyngeal residue severity rating scale: an anatomically defined and image-based tool. Dysphagia, 30, [phone].) Penetration/Aspiration Scale: Ice: 1 - Material does not enter the airway Thin: 1 - Material does not enter the airway, 3 - Material enters the airway, remains above the vocal folds, and is not ejected from the airway, 7 - Material enters the airway, passes below the vocal folds, and is not ejected from the trachea despite effort Liquid- mildly thick (IDDSI 2)/nectar: 2 - Material enters the airway, remains above the vocal folds, and is ejected from the airway, 5 - Material enters the airway, contacts the vocal folds, and is not ejected from the airway Liquid- moderately thick (IDDSI 3)/honey: 2 - Material enters the airway, remains above the vocal folds, and is ejected from the airway, 3 - Material enters the airway, remains above the vocal folds, and is not ejected from the airway Dysphagia- pureed (IDDSI 4) via tsp: 5 - Material enters the airway, contacts the vocal folds, and is not ejected from the airway, 8 - Material enters the airway, passes below the vocal folds, and no effort is made to eject Still Pictures/Video: See Flexible Endoscopic Evaluation Of Swallowing" under Procedures tab in IHIS for all photos and videos recorded. Secretions on scope entry in laryngeal vestibule Appreciated prolonged "green out" indicating penetration of liquids prior to swallow Variable glottic closure with phonation and during attempted command following Swallowing Outcomes: Functional Oral Intake Scale: Level 2 - Tube dependent with minimal/inconsistent oral intake Dysphagia Outcome Severity Scale (FLOWER): Level 2: Moderately severe dysphagia Dynamic Imaging Grade of Swallowing Toxicity (DIGEST) DIGEST Safety Grade: S3 (Severe) DIGEST Efficiency Grade: E1 (Mild) DIGEST Ratin (Severe) Assessment: Behzad Hay was seen for FEES Study and presents with mod-severe pharyngeal dysphagia this date (per FLOWER Level 2) , suspect at risk oral phase in setting admission acute L thalamic IPH, 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 Oral phase not directly visualized. Suspect some delayed AP transit but no gross anterior loss. Pharyngeal phase assessment overall limited by reduced visualization with baseline anatomy- appreciate pt tolerating scope without issues. Incomplete epiglottic inversion with suspect approximation of posterior pharyngeal wall consistently impacting. Variable complete glottic closure. Penetration prior to swallow and suspect during swallow leading to aspiration event with thin liquids (sensate cough), at least progression to cords with thickened liquids, aspiration event with puree solids (silent). Relatively functional pharyngeal efficiency without significant residue. Per the Dynamic Image Grade of Swallow Toxicity (DIGEST), safety was rated a 3 (severely unsafe) and efficiency was rated a 1 (mildly inefficient). With regard to safety and efficiency, swallowing function was rated 3, most consistent with severe risk of nutrition or aspiration related complications. Pt currently unable to follow command for functional use of strategies. Thickened liquids questionably effective to reduce airway events. In weighing the patient's deficits against the aforementioned DIGEST scale, recommend continued NPO and nonoral meds. Nursing communication order for ice chips with nursing. Ongoing SUPERVISOR OF INSTRUCTION services for addressing bolus challenge trials, possible BRAYDEN if able to follow commands. Anticipate repeat study next week- recommend MBS given inability to visualize airway events and determine cough efficacy. Rehab potential: good, to achieve stated therapy goals Plan for next session: 10/22: ongoing PO trials, anticipate repeat study (MBS) next week Recommended Rehab Activities: Bolus challenge swallows, Jaw Opening Exercise (consider BRAYDEN if pt able to follow directions) Acute SUPERVISOR OF INSTRUCTION Goals Plan of Care by ULISES Chow at 10/22/2024 9:09 AM Version 1 of 1 Problem: Dysphagia Goal: Ongoing Assessment - Patient will participate in ongoing assessment by accepting various PO consistency trials with appropriate participation/oral acceptance and no significant respiratory complications to determine readiness for possible FEES vs diet 10/22/2024 1455 by ULISES Chow Outcome: Met Goal: Swallow x2 - Pt will swallow therapeutic PO trials of moderately thick liquids/IDDSI 3 x10 trials given moderate cues for use of swallow x2 strategy to improve bolus efficiency to facilitate readiness for repeat study Outcome: Ongoing Goal: Bolus challenge - Patient will accept trials of thin liquids x10-15 trials, given moderate cues for use of strategies to improve bolus control/timing of swallow initiation with no signs of aspiration to determine readiness for repeat study Outcome: Ongoing Goal: BRAYDEN- Patient will complete isometric exercises (5 repetitions with a 10-second interval between the sets for a maximum of 2 sets) to improve pharyngeal swallow given fading verbal cues for form and pacing over x3-5 sessions Outcome: Ongoing Patient Education/Instruction Learners: Patient Education provided: Dysphagia risk factors, Dysphagia recommendations/impressions, Oral care/impact on aspiration pneumonia risk factors, Plan of care, Role of this discipline, Safety Teaching method: Verbal Education/Instruction Learner response: No evidence of learning Learning preferences: Auditory Learning considerations: Cognition Stroke education: Role of rehabilitation discipline Speech Language Pathologist: ULISES Chow Time In: 907 Time Out: 931 Total Visit Time: 24 minutes Total Treatment Time (skilled, billable minutes): 24 minutes Non-billable assistance during session: NA Assisted by during session: Maria G jeong PPE used during patient interaction: respirator, gloves Patient location/status at end of session: bed with head of bed elevated Patient alarms at end of session: none altered, wrist restraints Upon discontinuation of Acute Care Speech Therapy Services or patient discharge from the hospital this note represents the current Speech Therapy Discharge Summary Associated Order(s): *ARTERIAL LINE Post-Procedure Diagnose(s): Basal ganglia hemorrhage *ARTERIAL LINE Procedure Date:: 10/18/2024 Start Time:: 20:00 EDT Performed by: Delicia Danielson PA-C Authorized by: Delicia Danielson PA-C Staff: Name of Rip/Mould Operator: REID Lewis Consent Verbal consent not obtained Written consent not obtainedThe procedure was performed in an emergent situation Indications Indications: hemodynamic monitoring [place] Protocol Patient does not state understanding of procedure being performed.The patient's understanding of the procedure does not match consent given Procedure consent does not match procedure scheduled. Relevant documents present and verified: N/A Test results available and properly labeled: Yes Site marked: N/A Imaging studies available: Yes Required blood products, implants, devices, and special equipment available Patient identity confirmed: arm band, hospital-assigned identification number and provided demographic data Immediately prior to the procedure a timeout was called. Checklist was followed: Yes Pre Procedure Details Hand hygiene used Landmarks identified Antiseptic used: skin prepped with ChloraPrep Skin prep agent completely dried prior to procedure Maximum sterile barriers were used: cap, mask, sterile gown, sterile gloves, and large sterile sheet Anesthesia Local anesthesia used: yes Local: local infiltration Local Anesthetic: 1% Lidocaine Sedation Patient not sedated Procedure Details Location: Left radial artery Needle gauge: 18 Placement Technique: Ultrasound guided Number of attempts: 1 Transducer: waveform confirmed Procedure stop date: 10/18/2024 Procedure stop time: 20:30 EDT Procedure Vital Signs Monitored Post Procedure Successful Placement?: Yes Ultrasound guidance on successful attempt: Yes Sterile ultrasound: Sterile ultrasound gel and probe cover used Imaging Saved?: No Preliminary ultrasound demonstrated a patent vascular access. Guidewire removal confirmed: Yes Line secured with suture. Dressing applied: Sterile Estimated Blood Loss: < 10 mL Disposition of Specimen: No specimen was removed Complications: Small hematoma, pressure held and hemostasis achieved Patient tolerance: Patient tolerated the procedure well with no immediate complications Post-procedure circulation, movement, sensation: Normal Additional Documentation I performed the procedure myself Cosigned by REID Lewis at 10/18/2024 10:25 PM EDT documented in this encounter [facility] 11-04-2024 Note HNO ID: [id number] Author: ?, ?, ? Service: ? Author Type: ? Type: Progress Notes Filed: 11/04/2024 10:42 Note Text: Patient is identified through a medication adherence outreach initiative based on pharmacy claims data from: [employer] Medication Adherence Category: Statins First Review Attribution Status: Correct attribution Medication(s) Atorvastatin 40 mg Medication Status per portal/Epic "Reconcile Dispense": Not filled Medication Status per Profile Review: Patient discontinued Patient/provider appropriate for outreach? No Reason patient/provider not appropriate for outreach:Medication was D/C by patient due to side effects. PCP is aware Ishmael Romo [facility] Team [facility] 11-04-2024 History of Present illness Narrative Patient is identified through a medication adherence outreach initiative based on pharmacy claims data from: [employer] Medication Adherence Category: Statins First Review Attribution Status: Correct attribution Medication(s) Atorvastatin 40 mg Medication Status per portal/Epic "Reconcile Dispense": Not filled Medication Status per Profile Review: Patient discontinued Patient/provider appropriate for outreach? No Reason patient/provider not appropriate for outreach:Medication was D/C by patient due to side effects. PCP is aware Ishmael Romo [facility] Team documented in this encounter [facility] 11-04-2024 Note Patient Outreach ( PO) BEHZAD HAY ([id number]) 1940 F Date Time Provider Department 11/04/24 TASHA DEUTSCH During your visit today, we recorded the following information about you: Ishmael Romo 11/04/2024 10:42 AM Signed Patient is identified through a medication adherence outreach initiative based on pharmacy claims data from: [employer] Medication Adherence Category: Statins First Review Attribution Status: Correct attribution Medication(s) Atorvastatin 40 mg Medication Status per portal/Epic "Reconcile Dispense": Not filled Medication Status per Profile Review: Patient discontinued Patient/provider appropriate for outreach? No Reason patient/provider not appropriate for outreach:Medication was D/C by patient due to side effects. PCP is aware Ishmael Romo [facility] Team Allergies As of Date: 11/04/2024 Noted Allergy Reaction ADHESIVE TAPE (ROSINS) 08/27/2011 2 - Rash BACTRIM (SULFAMETHOXAZOLE-TRIMETH* 019 2 - Rash MACROBID (NITROFURANTOIN MONOHYD/*09/25/2018 2 - Rash QZJZOEG-OUD-JAK REDUCTASE INHIBIT*10/06/2014 5 - Intolerance Comments: severe leg pain Date Reviewed: 10/13/2024 Reviewed by: Yola Nj COTA/Filippo - Fully Assessed Reason for Visit: Allied Health Visit [5] Cmt: Medication adherence outreach Prescriptions as of 11/04/2024 - acetaminophen (TYLENOL ARTHRITIS PAIN) 650 mg CR tablet Take 650 mg by mouth once daily. - Cholecalciferol, Vitamin D3, (VITAMIN D) 25 mcg (1,000 unit) cap Take 1,000 Units by mouth once daily. - lisinopril (ZESTRIL) 10 mg tablet Take 10 mg by mouth two times a day. - ZINC ORAL Take 50 mg by mouth once daily. - apixaban (ELIQUIS) 2.5 mg tab(s) Take 1 tablet by mouth two times a day. - metoprolol tartrate, short acting, (LOPRESSOR) 25 mg tablet Take 1 tablet by mouth two times a day. - cyanocobalamin, vitamin B-12, 500 mcg chew Take 1 tablet by mouth once daily. - estradiol (ESTRACE) 0.01 % (0.1 mg/gram) vaginal cream Apply pea-sized amount to perineum and 1 applicator vaginally Fri, Fri, Fri for atrophic vaginitis. - TURMERIC ORAL Take 1 tablet by mouth once daily. Patient should start on September 22, 2024. - CAPSICUM, CAYENNE, ORAL Take 1 capsule by mouth once daily. Patient should start on September 22, 2024. - FLAXSEED OIL ORAL Take 1 capsule by mouth once daily. Patient should start on September 22, 2024. - GARLIC ORAL Take 1 tablet by mouth once daily. Patient should start on September 22, 2024. - cranberry fruit extract (CRANBERRY ORAL) Take 650 mg by mouth once daily. - LACTOBACILLUS ACIDOPHILUS (PROBIOTIC ACIDOPHILUS ORAL) Take 1 capsule by mouth once daily. Patient should start on September 22, 2024. - multivitamin ORAL tablet Take 1 tablet by mouth once daily. 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] 07/28/2017 07/06/2018 Collagenous colitis [K52.831] 12/21/2018 IBS (irritable bowel syndrome) [K58.9] 12/21/2018 Hiatal hernia [K44.9] 09/11/2020 Fall from standing [W19.XXXA] 06/05/2021 Rotator cuff tear arthropathy, left [M75.102, M*10/29/2021 Paroxysmal atrial fibrillation (HCC) [I48.0] 04/11/2022 Primary hypertension [I10] 12/30/2022 Acute pain of right shoulder [M25.511] 04/16/2023 Severe pain of left shoulder [M25.512] 04/16/2023 Cervicalgia [M54.2] 04/16/2023 Encounter Status:Closed by ISHMAEL ROMO on 11/04/24 [facility] 11-01-2024 Consult note Formatting of th is note is different from the original. SMALL BORE FEEDING TUBE PLACEMENT Consulted for small bore feeding tube placement. Indication for feeding tube placement: Dysphagia Distal tube tip location requested: Gastric After patient screened for contraindications, identity confirmed, and procedure explained to patient, a 12 FR feeding tube was placed in the Right nare to the 56 cm christiane using the [employer] electromagnetic guidance machine. Tube secured with Nasal bridle. Guidewire bagged, labeled, and hung on pt whiteboard in room. Benjamin Knowles RD assisted with the procedure and sitter was present in room. Patient tolerated the procedure well. SANJANA released. Will defer to MD to read x-ray and provide bedside RN with an OK to use when appropriate. A photo of the tube and bridle have been uploaded to the media tab. For RD small-bore feeding tube consult and tube management. NOTE: Availability Mon-Fri 8am-4pm (last consult taken at 2pm) only. Tube Team phone: . For questions pertaining to patient's enteral nutrition regimen, contact unit RD per [facility] dietitian on-call schedule. Brenna LUI, LD, [facility] Pager #[phone] Associated Order(s): IP CONSULT TO GASTROENTEROLOGY N [facility] Consult Web[facility] --> IM Consult Serv [facility] --> [facility] IBD consult service Fellow GASTROENTEROLOGY INPATIENT CONSULT Referring Provider: Jeronimo Trujillo MD Admit Date: 10/18/2024 Reason for Consultation: PEG HISTORY OF PRESENT ILLNESS: Behzad Hay is a 84 y.o. female who has a past history notable for afib on eliquis (LD 7 AM), HTN, HLD who presents from [place] with L thalamic ICH with hosp course c/b Afib-RVR. UA concerning for UTI, started on Ceftriaxone. We are consulted for PEG tube placement. Pt has been seen by SUPERVISOR OF INSTRUCTION. First seen in on 10/21. She failed FEES on 10/22. She failed MBS on 10/27. DHT removed 10/27 given issues with clogging. - Prior abdominal surgeries: - Evidence of ileus:KUB with distended colon and stool ball. - Prior endoscopies:Last colonoscopy in 2020--results not available, No prior EGD - Tolerating TF:Yes - Ascites:No - On AC:No - Agitation/AMS/Hx pulling lines/drains:Yes - Consentable:No - Constipation--pt with stool ball on imaging and some colonic dilation Last Bowel Movement: 10/26/24 PAST MEDICAL HISTORY: PAST MEDICAL HISTORY No past medical history on file. PAST SURGICAL HISTORY Past Surgical History: Procedure Laterality Date HIP REPLACEMENT Bilateral CURRENT MEDICATIONS aspirin 81 mg Oral Daily Or aspirin 300 mg Rectal Daily cefTRIAXone 1 g Intravenous Q24H doxazosin 2 mg Oral QHS heparin 5,000 Units Subcutaneous Q8H 0800/1600/2200 Lisinopril 10 mg Per NG tube Q12H Melatonin 6 mg Oral Daily early evening Metoprolol 25 mg Per NG tube Q12H Polyethylene glycol 17 g Per NG tube Daily Senna 8.6 mg Per NG tube Daily Water liquid (free water) 30 mL Per NG tube Q4H ALLERGIES No Known Allergies SOCIAL HISTORY She has no history on file for tobacco use, alcohol use, and drug use. FAMILY HISTORY No family history on file. REVIEW OF SYSTEMS: 10-point ROS negative unless otherwise noted in HPI. PHYSICAL EXAM: Temp: [97.4 F (36.3 C)-98.6 F (37 C)] 97.9 F (36.6 C) Pulse (Heart Rate): [69-144] 119 Resp Rate: [14-20] 20 BP: (105-147)/(55-71) 105/55 O2 Sat (%): [95 %-100 %] 96 % Weight: [51.8 kg (114 lb 1.6 oz)] 51.8 kg (114 lb 1.6 oz) Wt Readings from Last 3 Encounters: 10/27/24 51.8 kg (114 lb 1.6 oz) General: awake, alert, no apparent distress, HEENT: No scleral icterus Abdomen: Soft, non-tender, non-distended Extremities: Warm and well perfused, no edema Skin: Warm, dry, no rashes Neurological: Alert Psychiatric: Normal affect, normal mood, pleasant demeanor LABS: CBC: Lab Results Component Value Date WBC 7.41 10/28/2024 HGB 12.8 10/28/2024 PLATELET 304 10/28/2024 MCV 96.9 10/28/2024 Chemistry: Lab Results Component Value Date SODIUM 136 10/28/2024 POTASSIUM 4.6 10/28/2024 CHLORIDE 100 10/28/2024 CO2 27 10/28/2024 BUN 25 10/28/2024 CREATSERUM 0.81 10/28/2024 GLUCOSE 124 10/28/2024 MAGNESIUM 2.2 10/22/2024 Liver Function Tests: Lab Results Component Value Date ALT 79 (H) 10/19/2024 AST 48 (H) 10/19/2024 ALKPHOS 171 (H) 10/19/2024 BILITOTAL 0.4 10/19/2024 BILIDIRECT <0.1 10/19/2024 INR 1.0 10/22/2024 IMAGING/STUDIES: All relevant imaging and procedures were reviewed. XR ABDOMEN 1 VIEW PORTABLE Final Result IMPRESSION: Feeding tube is seen coursing into the stomach looping backwards with its tip in the gastric fundus. Advancement into a postpyloric location is recommended FLUORO MODIFIED BARIUM SWALLOW WITH SPEECH Final Result IMPRESSION: Aspiration with thin liquid. Please see the speech language pathologist report for further details and dietary recommendations. ABDOMEN 1 VIEW PORTABLE Final Result IMPRESSION: Prominent rectal stool ball. Nonobstructive bowel gas pattern. HEAD WITHOUT CONTRAST Final Result IMPRESSION: Stable left thalamic parenchymal hematoma with mildly increased edema. No significant mass effect CARDIOGRAM Final Result MRI BRAIN STROKE WITH AND WITHOUT CONTRAST Final Result IMPRESSION: Left thalamic hemorrhage as noted on October 18, 2024 CT head. Punctate right occipital and left cerebellar acute infarcts. Remote left MCA territory infarct. I personally viewed and interpreted these images and I have reviewed and approved this report. ABDOMEN 1 VIEW PORTABLE Final Result IMPRESSION: Tip of the Dobbhoff projects over the distal stomach. HEAD WITHOUT CONTRAST Final Result IMPRESSION: Stable exam. Acute left thalamic hemorrhage with mild surrounding vasogenic edema. 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 STROKE HEAD-STROKE ALERT ONLY Final Result IMPRESSION: Acute left thalamic hemorrhage with mild surrounding vasogenic edema. 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 Preliminary findings were discussed with David Sutton NP on 10/18/2024 1:57 PM. I personally viewed and interpreted these images and I have reviewed and approved this report. SSMENT AND PLAN: Behzad Hay is a 84 y.o. female who has a past history notable for afib on eliquis (LD 7/7 AM), HTN, HLD who presents from [place] with L thalamic ICH with hosp course c/b Afib-RVR. UA concerning for UTI, started on Ceftriaxone. We are consulted for PEG tube placement. IMPRESSION PEG Placement. Dysphagia Malnutrition. Need for fdc feeding. Assessment/Planning No obvious contraindication for PEG tube placement right except for constipation with rectal stool ball, colonic dilation, and some issues with agitation. We will suggest continues feeding Dobbhoff tube, escalated bowel regimen with MiraLax b.i.d. senna b.i.d.. Our team will review KUB on Friday regarding safety and timing of EGD for PEG. In the meantime, she can also continue to work with SUPERVISOR OF INSTRUCTION as she improves clinically for her multiple active medical issues that she is going to be managed for. This consult was discussed with Dr. Ronni MD the attending physician. If you have any questions or need any further information, please feel free to contact our consult team. Thank you for this consult and allowing us to participate in the care of Behzad Hay! Dilip Chapman MD Fellow Physician Division of Gastroenterology, Hepatology & Nutrition Department of Internal Medicine [facility] Pager x [phone] or Epic Chat with questions For urgent/stat calls or consults 5pm to 7am or all day on the weekend, please page the on-call GI fellow on [employer]. [facility]--> Internal Medicine--> Gastroenterology, Hepatology, & Nutrition--> 1st Call Fel [facility] OR STAT/NEW GI Cons Wknd For follow up questions regarding this patient 7am to 5pm, contact the IBD consults fellow or VIDYA on [employer]. [facility]--> Internal Medicine--> Gastroenterology, Hepatology, & Nutrition--> IBD Consult Service Fel Day OR IBD Consult Service VIDYA Day Cosigned by Za Rudolph MD at 10/28/2024 9:26 PM EDT Associated attestation - Za Rudolph MD - 10/28/2024 9:26 PM EDT I saw and evaluated Ms. Hay today. I have reviewed Dr. Chapman's note, revised as needed and agree with the documentation. Behzad Hay is a 84 y.o. female who has a past history notable for afib on eliquis (LD 7/7 AM), HTN, HLD who presents from [place] with L thalamic ICH with hosp course c/b Afib-RVR. UA concerning for UTI, started on Ceftriaxone. We are consulted for PEG tube placement. We recommend bowel regimen optimization, and will aim to schedule her for PEG early next week, will need consent from [facility]NOK. We will continue to follow for more precise timing. She is not receiving a procedure today. Za Rudolph MD [employer] - Clinical Division of Gastroenterology, Hepatology & Nutrition Department of Internal Medicine SMALL BORE FEEDING TUBE PLACEMENT Consulted for small bore feeding tube placement. Indication for feeding tube placement: Inadequate po intake, Unable to tolerate po, and Dysphagia Distal tube tip location requested:Post Pyloric Preferred After patient screened for contraindications, identity confirmed, and procedure explained to patient, a 12 FR feeding tube was placed in the Left nare to the 63 cm christiane using the Kine[employer] electromagnetic guidance machine. Tube secured with Nasal bridle. FRANSISCO Mckinley RD assisted with the procedure. Patient tolerated the procedure well. KUB released. Guidewire bagged, labeled, and taped to patient white board in room Will defer to MD to read x-ray and provide bedside RN with an OK to use when appropriate. Ousmane Knowles MS, RD LD [facility] Pager# [phone] small-bore feeding tube consult and tube management. NOTE: Availability Mon-Fri 8am-4pm (last consult taken at 3pm) only. Tube Team phone: . For questions pertaining to patient's enteral nutrition regimen, contact unit RD [facility]. Stroke Attending Addendum (Late entry for 10/19/24): I have interviewed and examined patient. I have reviewed Ailyn Mullen CNP's note and agree with the following highlights, additions, and addendums: The patient is a 84 y.o.female with a history of Atrial fibrillation on eliquis, hypertension, hyperlipidemia who on 10/18/24 6a awoke with right hemiparesis (LKN 2100 prior to bed). At the [place] [facility] CT brain showed a left thalamic intracerebral hemorrhage and remote left inferior division MCA infarct. OSH CT angiogram head/neck negative. She was given K Centra. She was transferred to [facility] ER and on arrival NIHSS was 16. LDL 73, HgbA1c 5.4. The patient was admitted to the NCCU. MRI brain diffusion weighted images shows acute right CHAIR MENDER and L cerebellar infarct. FLAIR shows old left MCA inferior division infarct. ROS: unobtainable. Interval Overnight History: Neurological examination shows aphasia and right hemiparesis, NIHSS 11 (?-2, com-1, RUE-2, RLE-3, aphas-2, dys-1). Assessment/Plan: Eliquis related Acute left thalamic Intracerebral hemorrhage Post-bleed day # 1. Eliquis discontinued. Likely HTN hemorrhage. Continue Blood pressure control. DVT prophylaxis with SCDs and start heparin SQ. PT/OT consults. Start Asa PBD #10. Mayra Mar MD Associated Order(s): IP CONSULT TO SURGERY - NEURO Neurosurgery Consult Note Reason for Consultation: " thalamic hematoma with R-sided deficits on Eliquis HPI Ms. Behzad Hay is a 84 y.o. female w/ PMH of afib on eliquis (LD 7/7 AM) who [facility] as an [facility] hemorrhagic stroke transfer. She was found to be aphasic by her in terms of dysarthria and R sided deficits. OSH CTH found a small volume thalamic IPH, for which neurosurgery was consulted. Pt denies numbness, paresthesias, change in vision, difficulty swallowing, change in bowel/bladder habits, or other focal neurologic deficits. She takes eliquis LD 7/7 AM anticoagulants or antiplatelet agents. ROS: All other systems are negative except as mentioned in HPI No past medical history on file. No past surgical history on file. No family history on file. Allergies Not on File Infusions Scheduled Meds PRN Meds: Labetalol, Lidocaine 1% (PF) Home Meds Prior to Admission medications Not on File Vitals Temp: [98.7 F (37.1 C)] 98.7 F (37.1 C) Pulse (Heart Rate): [92-97] 97 Resp Rate: [16] 16 BP: (116-149)/(72-81) 116/79 O2 Sat (%): [96 %] 96 % Weight: [56.4 kg (124 lb 5.4 oz)] 56.4 kg (124 lb 5.4 oz) Physical General: NAD Cards: no obvious JVD Resp: no stridor or retractions Abd: soft NTND Ext: no edema Mental Status: Awake, alert, oriented x1 to name only. Cooperative, follows commands. Aphasia present in terms of unclear speech, R sided hemineglect. Cranial Nerves: PERRL, EOMI bilaterally. Facial sensation intact in all 3 branches. R facial droop. Tongue is midline. Motor Function: FCx4 LUE/LLE: 4/5 (deconditioned), requires multiple prompting RUE/RLE: spontaneous and antigravity movement throughout Sensory Function: Decreased sensation to the R arm globally Labs WBC/Hgb/Hct/Plts: 8.14/12.0/37.7/273 (10/18 1344) No results for input(s): "PT", "INR" in the last 72 hours. Imaging: CT STROKE HEAD-STROKE ALERT ONLY (Results Pending) A/P: Behzad Hay is a 84 y.o. female w/ PMH of afib on eliquis (LD 7/7 AM) who presents as a hemorrhagic stroke transfer after dysarthria and R sided deficits this AM noticed by her . OSH CTH found a small volume < 30 cc ICH to the L thalamus (ICH score of 1 for age only > 80, 30 day mortality of 13%). CTA was negative. Exam was significant for R sided weakness and a R facial droop as well as expressive aphasia. INR 1.1 and PLT of 273. Etiology likely hypertensive. Plan: -- No acute neurosurgical intervention recommended at this time -- Repeat CTH for 4 PM for stability -- Recommend NCCU level of care for SBP < 140 -- Reversal completed, kcentra received Staff: Dr. Pressley Covering: NS2 ([id number]) ## neurosurgery coverage changes at 0530/1730; if 0530 or 1730 has passed since original consult note placed, please page covering pager above ## Complexity. Wound Documentation Any conditions listed below are present on admission unless otherwise specified. . Cosigned by Kristin Pressley MD at 10/18/2024 6:11 PM EDT Associated attestation - Kristin Pressley MD - 10/18/2024 6:11 PM EDT I reviewed all pertinent notes, imaging, and laboratory work in the medical record. I personally saw and examined the patient and discussed the case with resident. I agree with the findings and plan, as stated below. Left thalamic IPH. ICH score 1. Weakness on R, dysarthria. Reversed Eliquis with Kcentra, INR 1.1. Repeat CTH. Keppra 1 week. CTA negative for vascular malformation - left Pcomm infundibulum vs. Small 1mm aneurysm. SBP<140 for 24 hours after stable scan. Appreciate NV recs. Kristin Pressley MD [facility] of Neurological Surgery [id number] documented in this encounter [facility] 10-20-2024 Telephone encounter Note Chu Cordova. 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 All home health services have been placed on HOLD. Thank you. Mack Brito RN [facility] Work Phone: 10-20-2024 Miscellaneous Notes Chu Cordova. 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 All home health services have been placed on HOLD. Thank you. Mack Brito RN [facility] documented in this encounter [facility] 10-20-2024 Miscellaneous Notes Patient had a CVA 10/18 and life flighted to [facility] where she has been admitted. documented in this encounter [facility] 10-20-2024 Patient's home Note Patient had a CVA 10/18 and life flighted to [facility] where she has been admitted. [facility] Work Phone: 10-19-2024 History and physical note NEUROCRITICAL CARE HISTORY AND PHYSICAL HOSPITAL VISIT DEMOGRAPHICS Patient: Behzad Hay Code status: Full Code Admission date: 10/18/2024 1:37 PM Hospital days: LOS: 1 day CHIEF COMPLAINT L BG IPH HISTORY OF PRESENT ILLNESS Behzad Hay is a 84 y.o. female with a past history of afib on eliquis (LD 7/ AM), HTN, HLD who presents from [place] with L thalamic ICH. LKW 2100 10/17. Pt reportedly awoke at 0600 on 10/18 with some R sided weakness and was found by her home health aide at 0900 slumped against the wall with R sided weakness, R facial droop and dysarthria. NIHSS on arrival to [facility] ED 16 (2, 1 commands, 1 L gaze pref, 1 L facial droop, 2 R arm, 2 L leg, 3 R leg, 2 aphasia, 2 dysarthria). CTH at OSH with L thalamic IPH. CTA at OSH with no acute abnormalities. Repeat CTH at [facility] with redemonstration of known L thalamic ICH and remote L MCA territory infarct. BP on arrival 148/76. Admitted to NCCU for monitoring as below. INTERVAL HISTORY SINCE ADMISSION 10/18/2024: Admitted to NCCU for frequent neurochecks and airway monitoring 10/19: NAEO. MRI without new findings, redemonstrates known stroke. Start TF. TTF stroke pending REVIEW OF SYSTEMS A complete review of systems was negative except for: those noted in HPI HISTORY No past medical history on file. Past Surgical History: Procedure Laterality Date HIP REPLACEMENT Bilateral Social History Socioeconomic History Marital status: Spouse name: Not on file Number of children: Not on file Years of education: Not on file Highest education level: Not on file Occupational History Not on file Tobacco Use Smoking status: Not on file Smokeless tobacco: Not on file Substance and Sexual Activity Alcohol use: Not on file Drug use: Not on file Sexual activity: Not on file Other Topics Concern Not on file Social History Narrative Not on file Social Drivers of Health Financial Resource Strain: Low Risk (09/27/2024) Received from [facility] Overall Financial Resource Strain (CARDIA) Difficulty of Paying Living Expenses: Not very hard Food Insecurity: No Food Insecurity (09/27/2024) Received from [facility] Hunger Vital Sign Worried About Running Out of Food in the Last Year: Never true Ran Out of Food in the Last Year: Never true Transportation Needs: No Transportation Needs (09/27/2024) Received from [facility] PRAPARE - Transportation Lack of Transportation (Medical): No Lack of Transportation (Non-Medical): No Physical Activity: Insufficiently Active (09/27/2024) Received from [facility] Exercise Vital Sign Days of Exercise per Week: 7 days Minutes of Exercise per Session: 10 min Stress: No Stress Concern Present (09/27/2024) Received from [facility] [employer] [place] of Occupational Health - Occupational Stress Questionnaire Feeling of Stress : Not at all Social Connections: Moderately Integrated (09/27/2024) Received from [facility] Social Connection and Isolation Panel [NHANES] Frequency of Communication with Friends and Family: More than three times a week Frequency of Social Gatherings with Friends and Family: More than three times a week Attends Mu-Ism Services: More than 4 times per year Active Member of Clubs or Organizations: Yes Attends Club or Organization Meetings: 1 to 4 times per year Marital Status: Personal Safety: Not on file Housing Stability: Low Risk (08/13/2023) Received from [facility] Housing Stability Vital Sign Unable to Pay for Housing in the Last Year: No Number of Places Lived in the Last Year: 1 Unstable Housing in the Last Year: No ALLERGIES AND HOME MEDICATIONS Allergies: has no known allergies. Home Medications: Medications Prior to Admission Medication Sig Dispense Refill Last Dose/Taking apixaban 2.5 MG tablet Take 1 tablet by mouth every 12 hours. Atorvastatin 40 MG tablet Take 1 tablet by mouth daily. Ferrous Sulfate (Iron) 325 (65 Fe) MG tablet Take 1 tablet by mouth every other day. Lisinopril 10 MG tablet Take 1 tablet by mouth 2 times daily. Metoprolol 25 MG tab regular release Take 1 tablet by mouth 2 times daily. Prior to Arrival Meds: Medications Prior to Admission Medication Sig Dispense Refill Last Dose/Taking apixaban 2.5 MG tablet Take 1 tablet by mouth every 12 hours. Atorvastatin 40 MG tablet Take 1 tablet by mouth daily. Ferrous Sulfate (Iron) 325 (65 Fe) MG tablet Take 1 tablet by mouth every other day. Lisinopril 10 MG tablet Take 1 tablet by mouth 2 times daily. Metoprolol 25 MG tab regular release Take 1 tablet by mouth 2 times daily. Hospital Medications: Infusions: niCARdipine Stopped (10/19/24 0518) Sodium chloride 0.9% 75 mL/hr at 10/19/24 0700 Scheduled: Lisinopril 10 mg Per NG tube Daily Metoprolol 12.5 mg Per NG tube Q12H Senna 8.6 mg Oral Daily Or Senna 8.6 mg Per NG tube Daily Sodium chloride 0.9% PRN: Acetaminophen OR Acetaminophen OR Acetaminophen OR Acetaminophen, Calcium Gluconate OR calcium gluconate, hydrALAZINE OR hydrALAZINE, Labetalol OR Labetalol, magnesium sulfate, Ondansetron 4mg/2ml OR Ondansetron, Polyethylene glycol OR Polyethylene glycol, potassium chloride OR Potassium chloride OR Potassium Bicarb-Citric Acid OR potassium chloride, Sodium chloride 0.9%, Sodium chloride 0.9%, sodium phosphate OR sodium phosphate PHYSICAL EXAM GENERAL: Alert, no acute distress HEENT: normocephalic, no scalp wounds nor lesions CARDIO: +S1S2, RRR, no m/r/g, no edema PULM: equal chest rise; on room air; minimal secretions ABDOMINAL: soft, nontender, nondistended EXTREMITIES: no wounds or lesions VASCULAR: 2+ distal pulses NEURO: Psych and Mental status: alert; expressive aphasia Speech/language: Slurred; garbled/incoherent Cranial nerves: CN II visual snyder full to confrontation without visual extinction CN III, IV, PERRL. L gaze preference, crosses midline CN V unable to assess CN VII R facial droop CN VIII hearing grossly intact to voice CN IX & X Dysarthria/garbled speech CN XI shoulder shrug full strength bilaterally CNXII tongue protrudes midline Motor: Normal bulk and tone. Follows commands x 4 extremities, LUE and LLE no drift, RUE and RLE weaker with drift Coordination: Unable to perform Sensation: intact to light touch throughout without extinction. Gait: Deferred Coordination: No ataxia, dysmetria FTS ASSESSMENT AND PLAN Neuro: (10/18) Acute L BG ICH Subacute L MCA territory Infarct - ICH Management: - Monitor neurostatus with neurochecks Q4H and pupilometer Q4h - Prevent further expansion with goal SBP <140 (see cards) - 10/18 NSGY consult: admit to NCCU for BP management <160 -CTH 6h stability: stable -MRI B stroke: pend - Daily NIHSS NIH Stroke Scale: NIH Level of Conciousness (Provider): 0 NIH LOC Questions (Provider): 1 NIH LOC Commands (Provider): 1 NIH Best Gaze (Provider): 1 NIH Visual (Provider): 0 NIH Facial Palsy (Provider): 2 NIH Left Arm Motor (Provider): 0 NIH Right Arm Motor (Provider): 2 NIH Left Leg Motor (Provider): 0 NIH Right Leg Motor (Provider): 2 NIH Limb Ataxia (Provider): 0 NIH Sensory (Provider): 0 NIH Best Language (Provider): 1 NIH Dysarthria (Provider): 2 NIH Extinction and Inattention (Provider): 0 NIH Total Score (Provider): 12 - Imaging: - 10/18 1400: Initial CT H: Acute left thalamic hemorrhage with mild surrounding vasogenic edema. 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 - 10/18 1600: 6H-stability CT H: stable L thalamic hemorrhage with mild surrounding vasogenic edema - 10/18 MRI B: pend - Cytotoxic Cerebral Edema Management: - Goal Na 135 - 145; monitor Na Q24H - Daily Chem7 Recent Labs 10/18/24 1344 10/19/24 0012 SODIUM 137 140 OSMOLALITY 290 295 CHLORIDE 105 104 - Hemorrhage presumably 2/2 HTN etiology; evaluation for cause and source: - Complete TTE (see cards) - Obtain LDL level and statin therapy if indicated (see cards) - Obtain HA1C level (see endo) - Defer antiplatelet therapy and therapeutic anticoagulation - Consider urine drug screen on admission if no stroke risk factors - Consider hypercoagulability panel 24H-post tPA if no stroke risk factors - Initiate VTE prophylaxis after bleed stability established (see heme) L MCA infarct, subacute: - Found on CTH, MRI redemonstrates known stroke without new findings Pain/Sedation management: - Tylenol 650mg Q4H PRN Psych: No Current Issues Pulm: No Current Issues O2 Sat (%): 97 % (10/19 929) O2 Device: room air (10/19 1999) - Goal SpO2 >92% - [id number], encourage pulmonary toileting - On room air; continue to monitor airway Cards: Essential HTN HLD Atrial Fibrillation Temp: [97.6 F (36.4 C)-98.9 F (37.2 C)] 97.6 F (36.4 C) Pulse (Heart Rate): [65-135] 72 Resp Rate: [13-45] 14 BP: (99-187)/(54-104) 120/62 Arterial Line (1) BP: (104-164)/(48-97) 131/65 O2 Sat (%): [92 %-100 %] 97 % Weight: [56.4 kg (124 lb 5.4 oz)] 56.4 kg (124 lb 5.4 oz) - Goal SBP <160, MAP >65 HTN - Home antihypertensives: lisinopril 10mg BID - Current regimen: - lisinopril 10 daily - metoprolol 12.5mg BID - Cardene gtt--discontinue - PRN labetalol and hydralazine Labs/imaging - TTE: Left ventricular size, regional wall motion and global systolic function are normal. Ejection fraction 61% Left atrium measures moderately enlarged in size Right ventricle is normal in size and function. Estimated right ventricular/pulmonary artery systolic pressure, 28mmHg Right atrium measures moderate to severely enlarged in size Valve structures are consistent with age. No valve dysfunction - 10/18 troponin: - 10/18 ECG: pending HLD - Statin Therapy: Indicated if LDL >70; hold home atorvastatin pending LFTs Recent Labs 10/18/24 1344 CHOLESTEROL 140 TRIG 106 HDL 46 Atrial fibrillation: - On home eliquis 2.5mg BID (LD 10/18 AM) --> held in setting of acute bleed - received Kcentra at OSH - On home metoprolol 25mg BID --> 10/18 restart metoprolol 12.5mg BID Renal/: No Current Issues Fluid Balance: - Goal: euvolemia - purewick - Maintenance: none Intake/Output Summary (Last 24 hours) at 10/19/2024 0956 Last data filed at 10/19/2024 0821 Gross per 24 hour Intake 1669.8 ml Output 1800 ml Net -130.2 ml - Daily Chem 10; electrolytes replaced per NCCU protocol Recent Labs 10/18/24 1344 10/19/24 0012 SODIUM 137 140 POTASSIUM 4.2 3.7 CHLORIDE 105 104 CO2 27 26 BUN 16 12 CREATSERUM 0.86 0.73 PHOSPHORUS 3.6 2.9 MAGNESIUM 2.0 1.9 ICA -- 4.91 GI/Nutrition: Dysphagia Elevated LFTs (POA) Recent Labs 10/19/24 0012 ALBUMIN 3.9 BILIDIRECT <0.1 BILITOTAL 0.4 ALKPHOS 171* ALT 79* AST 48* TP 6.7 - DIET NPO WITHOUT meds - [place] Swallow Screening Result: failed=NPO - Place DHT; post placement KUB: normal -TF started discontinue ivf Bowel regimen: - - Senna, miralax Stress ulcer prophylaxis: - none indicated Elevated LFTs: - repeat LFTs: downtrend Endo: No Current Issues - Goal blood glucose 140-180 - Insulin SSI: none Recent Labs 10/18/24 1344 10/18/24 1936 10/19/24 0012 10/19/24 0659 GLUCOSE 114 113 145 131 HGBA1C 5.4 -- -- -- ID: No Current Issues Recent Labs 10/18/24 1344 10/19/24 0012 WBC 8.14 10.12 - Temp (24hrs), Av.2 F (36.8 C), Min:97.6 F (36.4 C), Max:98.9 F (37.2 C) - PRN Tylenol for T>100.4F - Most recent and positive cultures: Date Collected Source Result Date Finalized - Antiinfectives: Start Date Antiinfective Coverage Course Length Stop Date Heme/Onc: No Current Issues Recent Labs 10/18/24 1344 10/19/24 0012 WBC 8.14 10.12 RBC 3.86* 3.91 HGB 12.0 12.1 HCT 37.7 37.6 PLATELET 273 285 PT 13.9 13.2 PTT 31.9 28.4 INR 1.1 1.0 - Goal plt >100, INR <1.4, Hgb >7 DVT prophylaxis: - start SQH 10/19 -borderline renal function Musc: No Current Issues - PT/OT consulted and following - Current Activity Order: As tolerated Fall Risk: - Assessed for patient fall risk and discussed safety measures during rounding. Social/Dispo: - Code status: Full Code - 10/18: Medications reconciled - Discharge planning per PCRM/SW. Nicotine Dependence unknown Complexity. Wound Documentation Any conditions listed below are present on admission unless otherwise specified. ICU Checklist: [x] Assess pain Presence of Pain: not present: non-verbal indicator of pain/discomfort Presence of Pain Score (Auto-calculated): 0 [x] Both SAT & SBT [x] Choice of analgesia/ sedation See neuro [x] Delirium [x] Early mobility PT/OT consulted?: Yes CURRENT AM-PAC Mobility Raw Score: 6 CURRENT AM-PAC Mobility Functional Limitation: 100.00% Impaired in Basic Mobility [x] Family Engagement Primary Emergency Contact: Aditi Carvalho Last updated: 10/18 [x] Get lines out [place]: inserted 10/18, (indication:hemodynamic montioring) [place]: inserted 10/18, (indication:strict I/Os) Rectal tube: none Enteral access: inserted 10/18, [ ] gastric; [ ] post-pyloric CENTRAL LINES: Central Line Daily Indication(s) and Daily Review of Necessity 10/19/2024: If multiple lines, please use order shown above as reference when selecting line to be removed No central line in place Discussed with NCCU Attending, Dr. Sher CC: I spent 35 minutes in the intensive care unit providing critical care services (CPT 43885) to Behzad Hay today independent of procedures and other care providers. My time managing this critically ill patient included review of interval history, laboratories, radiology and consultation reports; performing a physical examination; discussing the patient with the multi-disciplinary team and managing life sustaining therapies to prevent imminent clinical deterioration as outlined above. Bob Ramos MD 10/19/24 9:56 AM Check the treatment team to find the assigned neurocritical care provider (resident, fellow, SALES DRIVER, or PA) or page/call the corresponding number below NCC1 (Beds [phone]): [place] # [phone], pager #[phone] NCC2 (Beds [phone], 12 Lc, and overflow): [place] #: [phone], pager #[phone] Cosigned by Zoya Sher MD at 10/19/2024 5:13 PM EDT NEUROCRITICAL CARE HISTORY AND PHYSICAL HOSPITAL VISIT DEMOGRAPHICS Patient: Behzad Hay Code status: Full Code Admission date: 10/18/2024 1:37 PM Hospital days: LOS: 0 days CHIEF COMPLAINT L [facility] HISTORY OF PRESENT ILLNESS Behzad Hay is a 84 y.o. female with a past history of afib on eliquis (LD 7 AM), HTN, HLD who presents from [place] with L thalamic ICH. LKW 2100 10/17. Pt reportedly awoke at 0600 on 10/18 with some R sided weakness and was found by her home health aide at 0900 slumped against the wall with R sided weakness, R facial droop and dysarthria. NIHSS on arrival to [facility] ED 16 (2, 1 commands, 1 L gaze pref, 1 L facial droop, 2 R arm, 2 L leg, 3 R leg, 2 aphasia, 2 dysarthria). CTH at OSH with L thalamic IPH. CTA at OSH with no acute abnormalities. Repeat CTH at [facility] with redemonstration of known L thalamic ICH and remote L MCA territory infarct. BP on arrival 148/76. Admitted to NCCU for monitoring as below. INTERVAL HISTORY SINCE ADMISSION 10/18/2024: Admitted to NCCU for frequent neurochecks and airway monitoring REVIEW OF SYSTEMS A complete review of systems was negative except for: Unable to perform d/t mental status HISTORY No past medical history on file. Past Surgical History: Procedure Laterality Date HIP REPLACEMENT Bilateral Social History Socioeconomic History Marital status: Spouse name: Not on file Number of children: Not on file Years of education: Not on file Highest education level: Not on file Occupational History Not on file Tobacco Use Smoking status: Not on file Smokeless tobacco: Not on file Substance and Sexual Activity Alcohol use: Not on file Drug use: Not on file Sexual activity: Not on file Other Topics Concern Not on file Social History Narrative Not on file Social Drivers of Health Financial Resource Strain: Low Risk (09/27/2024) Received from [facility] Overall Financial Resource Strain (CARDIA) Difficulty of Paying Living Expenses: Not very hard Food Insecurity: No Food Insecurity (09/27/2024) Received from [facility] Hunger Vital Sign Worried About Running Out of Food in the Last Year: Never true Ran Out of Food in the Last Year: Never true Transportation Needs: No Transportation Needs (09/27/2024) Received from [facility] PRAPARE - Transportation Lack of Transportation (Medical): No Lack of Transportation (Non-Medical): No Physical Activity: Insufficiently Active (09/27/2024) Received from [facility] Exercise Vital Sign Days of Exercise per Week: 7 days Minutes of Exercise per Session: 10 min Stress: No Stress Concern Present (09/27/2024) [facility] [facility] [place] [facility] [employer] [facility] - Occupational Stress Questionnaire Feeling of Stress : Not at all Social Connections: Moderately Integrated (09/27/2024) Received from [facility] Social Connection and Isolation Panel [NHANES] Frequency of Communication with Friends and Family: More than three times a week Frequency of Social Gatherings with Friends and Family: More than three times a week Attends Mu-Ism Services: More than 4 times per year Active Member of Clubs or Organizations: Yes Attends Club or Organization Meetings: 1 to 4 times per year Marital Status: Personal Safety: Not on file Housing Stability: Low Risk (08/13/2023) Received from [facility] Housing Stability Vital Sign Unable to Pay for Housing in the Last Year: No Number of Places Lived in the Last Year: 1 Unstable Housing in the Last Year: No ALLERGIES AND HOME MEDICATIONS Allergies: has no known allergies. Home Medications: (Not in a hospital admission) Prior to Arrival Meds: (Not in a hospital admission) Hospital Medications: Infusions: niCARdipine Stopped (10/18/24 1427) potassium chloride Sodium chloride 0.9% Sodium chloride 0.9% 75 mL/hr at 10/18/24 1632 Scheduled: Senna 8.6 mg Oral Daily Or Senna 8.6 mg Per NG tube Daily PRN: Acetaminophen OR Acetaminophen OR Acetaminophen OR Acetaminophen, Calcium Gluconate OR calcium gluconate, hydrALAZINE OR hydrALAZINE, Labetalol OR Labetalol, Lidocaine 1% (PF), magnesium sulfate, Ondansetron 4mg/2ml OR Ondansetron, Polyethylene glycol OR Polyethylene glycol, potassium chloride OR Potassium chloride OR Potassium Bicarb-Citric Acid OR potassium chloride, Sodium chloride 0.9%, sodium phosphate OR sodium phosphate PHYSICAL EXAM GENERAL: Alert, no acute distress HEENT: normocephalic, no scalp wounds nor lesions CARDIO: +S1S2, RRR, no m/r/g, no edema PULM: equal chest rise; on room air; minimal secretions ABDOMINAL: soft, nontender, nondistended EXTREMITIES: no wounds or lesions VASCULAR: 2+ distal pulses NEURO: Psych and Mental status: alert; expressive aphasia Speech/language: Slurred; garbled/incoherent Cranial nerves: CN II visual snyder full to confrontation without visual extinction CN III, IV, PERRL. L gaze preference, crosses midline CN V unable to assess CN VII R facial droop CN VIII hearing grossly intact to voice CN IX & X Dysarthria/garbled speech CN XI shoulder shrug full strength bilaterally CNXII tongue protrudes midline Motor: Normal bulk and tone. Follows commands x 4 extremities, LUE and LLE no drift, RUE and RLE weaker with drift Coordination: Unable to perform Sensation: intact to light touch throughout without extinction. Gait: Deferred Coordination: No ataxia, dysmetria FTS ASSESSMENT AND PLAN Neuro: (10/18) Acute L BG ICH Subacute L MCA territory Infarct - ICH Management: - Monitor neurostatus with neurochecks Q1H and pupilometer Q1H - Prevent further expansion with goal SBP <140 (see cards) - 10/18 NSGY consult: admit to NCCU for BP management <140 -CTH 6h stability: stable -MRI B stroke: pend - Daily NIHSS NIH Stroke Scale: NIH Level of Conciousness (Provider): 0 NIH LOC Questions (Provider): 1 NIH LOC Commands (Provider): 1 NIH Best Gaze (Provider): 1 NIH Visual (Provider): 0 NIH Facial Palsy (Provider): 2 NIH Left Arm Motor (Provider): 0 NIH Right Arm Motor (Provider): 2 NIH Left Leg Motor (Provider): 0 NIH Right Leg Motor (Provider): 2 NIH Limb Ataxia (Provider): 0 NIH Sensory (Provider): 0 NIH Best Language (Provider): 1 NIH Dysarthria (Provider): 2 NIH Extinction and Inattention (Provider): 0 NIH Total Score (Provider): 12 - Imaging: - 10/18 1400: Initial CT H: Acute left thalamic hemorrhage with mild surrounding vasogenic edema. 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 - 10/18 1600: 6H-stability CT H: stable L thalamic hemorrhage with mild surrounding vasogenic edema - 10/18 MRI B: pend - Cytotoxic Cerebral Edema Management: - Goal Na 135 - 145; monitor Na Q24H - Daily Chem7 Recent Labs 10/18/24 1344 SODIUM 137 OSMOLALITY 290 CHLORIDE 105 - Hemorrhage presumably 2/2 HTN etiology; evaluation for cause and source: - Complete TTE (see cards) - Obtain LDL level and statin therapy if indicated (see cards) - Obtain HA1C level (see endo) - Defer antiplatelet therapy and therapeutic anticoagulation - Consider urine drug screen on admission if no stroke risk factors - Consider hypercoagulability panel 24H-post tPA if no stroke risk factors - Initiate VTE prophylaxis after bleed stability established (see heme) L MCA infarct, subacute: - Found on CTH, MRI pending Pain/Sedation management: - Tylenol 650mg Q4H PRN Psych: No Current Issues Pulm: No Current Issues O2 Sat (%): 98 % (10/18 1800) O2 Device: room air (10/18 1800) - Goal SpO2 >92% - [id number], encourage pulmonary toileting - On room air; continue to monitor airway Cards: Essential HTN HLD Atrial Fibrillation Temp: [98.7 F (37.1 C)] 98.7 F (37.1 C) Pulse (Heart Rate): [76-101] 76 Resp Rate: [16-36] 36 BP: (115-161)/(58-86) 161/84 O2 Sat (%): [93 %-100 %] 98 % Weight: [56.4 kg (124 lb 5.4 oz)] 56.4 kg (124 lb 5.4 oz) - Goal SBP <140, MAP >65 HTN - Home antihypertensives: lisinopril 10mg BID - Current regimen: - lisinopril 10 daily - Cardene gtt - PRN labetalol and hydralazine Labs/imaging - TTE: ordered - 10/18 troponin: 8 - 10/18 ECG: pending HLD - Statin Therapy: Indicated if LDL >70; hold home atorvastatin pending LFTs Recent Labs 10/18/24 1344 CHOLESTEROL 140 TRIG 106 HDL 46 Atrial fibrillation: - On home eliquis 2.5mg BID (LD 7/7 AM) --> held in setting of acute bleed - received Kcentra at OSH - On home metoprolol 25mg BID --> 10/18 restart metoprolol 12.5mg BID Renal/: No Current Issues Fluid Balance: - Goal: euvolemia - Continue tapia (indication: I/Os) - Maintenance: 0.9NS w/ 20 KCl @ 75mL/hr No intake or output data in the 24 hours ending 10/18/24 191 - Daily Chem 10; electrolytes replaced per NCCU protocol Recent Labs 10/18/24 1344 SODIUM 137 POTASSIUM 4.2 CHLORIDE 105 CO2 27 BUN 16 CREATSERUM 0.86 PHOSPHORUS 3.6 MAGNESIUM 2.0 GI/Nutrition: Dysphagia Elevated LFTs (POA) Recent Labs 10/18/24 1344 ALBUMIN 3.8 BILIDIRECT 0.1 BILITOTAL 0.4 ALKPHOS 184* ALT 84* AST 58* TP 6.4 - DIET NPO WITHOUT meds - [place] Swallow Screening Result: failed=NPO - Place DHT; post placement KUB: pending Bowel regimen: - - Senna, miralax Stress ulcer prophylaxis: - none indicated Elevated LFTs: - repeat LFTs: pending Endo: No Current Issues - Goal blood glucose 140-180 - Insulin SSI: none Recent Labs 10/18/24 1344 GLUCOSE 114 HGBA1C 5.4 ID: No Current Issues Recent Labs 10/18/24 1344 WBC 8.14 - Temp (24hrs), Av.7 F (37.1 C), Min:98.7 F (37.1 C), Max:98.7 F (37.1 C) - PRN Tylenol for T>100.4F - Most recent and positive cultures: Date Collected Source Result Date Finalized - Antiinfectives: Start Date Antiinfective Coverage Course Length Stop Date Heme/Onc: No Current Issues Recent Labs 10/18/24 1344 WBC 8.14 RBC 3.86* HGB 12.0 HCT 37.7 PLATELET 273 PT 13.9 PTT 31.9 INR 1.1 - Goal plt >100, INR <1.4, Hgb >7 DVT prophylaxis: - Hold pending repeat CTH/MRI B in setting of acute IPH Musc: No Current Issues - PT/OT consulted and following - Current Activity Order: As tolerated Fall Risk: - Assessed for patient fall risk and discussed safety measures during rounding. Social/Dispo: - Code status: Full Code - 10/18: Medications reconciled - Discharge planning per PCRM/SW. Nicotine Dependence unknown Complexity. Wound Documentation Any conditions listed below are present on admission unless otherwise specified. ICU Checklist: [x] Assess pain Presence of Pain: not present: non-verbal indicator of pain/discomfort Presence of Pain Score (Auto-calculated): 0 [x] Both SAT & SBT [x] Choice of analgesia/ sedation See neuro [x] Delirium [x] Early mobility PT/OT consulted?: Yes [x] Family Engagement Primary Emergency Contact: Aditi Carvalho Last updated: 10/18 [x] Get lines out [place]: inserted 10/18, (indication:hemodynamic montioring) [place]: inserted 10/18, (indication:strict I/Os) Rectal tube: none Enteral access: inserted 10/18, [ ] gastric; [ ] post-pyloric CENTRAL LINES: Central Line Daily Indication(s) and Daily Review of Necessity 10/18/2024: If multiple lines, please use order shown above as reference when selecting line to be removed No central line in place Discussed with NCCU Attending, Dr. Sher CC: I spent 35 minutes in the intensive care unit providing critical care services (CPT 00103) to Behzad Hay today independent of procedures and other care providers. My time managing this critically ill patient included review of interval history, laboratories, radiology and consultation reports; performing a physical examination; discussing the patient with the multi-disciplinary team and managing life sustaining therapies to prevent imminent clinical deterioration as outlined above. Delicia Danielson PA-C 10/18/24 7:11 PM Check the treatment team to find the assigned neurocritical care provider (resident, fellow, SALES DRIVER, or PA) or page/call the corresponding number below NCC1 (Beds [phone]): [place] # [phone], pager #[phone] NCC2 (Beds [phone], 12 Lc, and overflow): [place] #: [phone], pager #[phone] Cosigned by Zoya Sher MD at 10/19/2024 5:13 PM EDT Neurovascular Evaluation Note Evaluation Date: 10/18/2024 Unit: [id number]/[id number] Consultation was requested by Dr. Curt iDallo MD Patient status: Emergency Length of stay: 0 days Reason for Consult/Chief Complaint L BG IPH History of Present Illness Behzad Hay is a 84 y.o. female with PMH significant for AFib (on Eliquis), HTN, HLD who presents from [place] with L BG ICH. LKW 2100 10/17. Pt reportedly awoke at 0600 this AM with some R sided weakness and was found by her home health aide at 0900 slumped against the wall with R sided weakness, R facial droop and dysarthria. NIHSS on arrival to [facility] ED 16 (2 ?, 1 commands, 1 L gaze pref, 1 L facial droop, 2 R arm, 2 L leg, 3 R leg, 2 aphasia, 2 dysarthria). CTH at OSH with L BG IPH. CTA at OSH with no acute abnormalities. Repeat CTH at [facility] with redemonstration of known L BG ICH and remote L MCA territory infarct. BP on arrival 148/76. A stroke alert was called for STAT consultation. Time of Level 1 Stroke Alert Activation (Or In House): 8 Arrival Time of Stroke Team : 8 Time of symptom onset: less than 24 hours Patient Location - Onset of Symptoms: Not in a healthcare setting Patient first presented to an [facility] ED facility: no Last Known Well: Date: 10/17/24 Last Known Well: Time: 2099 Source of information: [facility] medical record Review of Systems A complete review of systems was deferred for emergent treatment. Neurovascular-specific History / Information Home antiplatelet/anticoagulation therapy: Anticoagulation: Eliquis. Held s/p L BG IPH Patient Current Risk Factors: Stroke risk factors include hypertension, atrial fibrillation, or hyperlipidemia. Prior stroke history: yes; exact type of CVA unknown. Location: [facility] . Family Hx: unknown Stroke Diagnostic/Treatment Eligibility Information Time Based Thrombolytic Eligibility for IV Treatment 1. Last known well: Yes 2. Clinical diagnosis of ischemic stroke causing a measurable disabling neurologic deficit: Yes 3. Age 18 years or older: Yes Thrombolytic Contraindications 4. Evidence of intracranial hemorrhage on pretreatment CT: yes Time to thrombolytic delayed due to:Time to thrombolytic delayed due to: N/A Thrombectomy was considered and not indicated due to: Thrombectomy Contraindications: no LVO Stroke Clinical Assessment Information: NIHSS (Provider) Flowsheet Row First Filed Value Provider NIH Stroke Scale NIH Interval (Provider) admission filed on 10/18/2024 1338 NIH Level of Conciousness (Provider) 0 filed on 10/18/2024 1338 NIH LOC Questions (Provider) 2 filed on 10/18/2024 1338 NIH LOC Commands (Provider) 1 filed on 10/18/2024 1338 NIH Best Gaze (Provider) 1 filed on 10/18/2024 1338 NIH Visual (Provider) 0 filed on 10/18/2024 1338 NIH Facial Palsy (Provider) 1 filed on 10/18/2024 1338 NIH Left Arm Motor (Provider) 0 filed on 10/18/2024 1338 NIH Right Arm Motor (Provider) 2 filed on 10/18/2024 1338 NIH Left Leg Motor (Provider) 2 filed on 10/18/2024 1338 NIH Right Leg Motor (Provider) 3 filed on 10/18/2024 1338 NIH Limb Ataxia (Provider) 0 filed on 10/18/2024 1338 NIH Sensory (Provider) 0 filed on 10/18/2024 1338 NIH Best Language (Provider) 2 filed on 10/18/2024 1338 NIH Dysarthria (Provider) 2 filed on 10/18/2024 1338 NIH Extinction and Inattention (Provider) 0 filed on 10/18/2024 1338 NIH Total Score (Provider) 16 filed on 10/18/2024 1338 Is NIH=0 Within 180 min of Last Known Well Time? -- Stroke Scales Flowsheet Row Most Recent Value ICH Score (Calculated) 2 filed on 10/18/2024 1336 ICH Volume (ml) (Calculated Score) 1.49 filed on 10/18/2024 1336 NIH Total Score (Provider) 16 filed on 10/18/2024 1338 Past Medical History Medical History: No past medical history on file. SURGICAL HISTORY: No past surgical history on file. SOCIAL HISTORY: Medications PRIOR TO ARRIVAL MEDS: Prior to Admission medications Not on File Current Meds: Current Facility Administered Meds: Current Facility-Administered Medications Medication Dose Route Frequency Provider Last Rate Last Admin Labetalol (NORMODYNE) injection 10 mg 10 mg Intravenous PRN Gary Fraser MD 10 mg at 10/18/24 1343 Lidocaine 1% (PF) (XYLOCAINE MPF) 1 % injection 0.3 mL 0.3 mL Infiltration Once PRN Gary Fraser MD No current outpatient medications on file. Scheduled Meds: Continuous Infusions: PRN Meds:Labetalol, Lidocaine 1% (PF) Vitals Objective Findings: Vital Signs (24hrs): Temp: [98.7 F (37.1 C)] 98.7 F (37.1 C) Pulse (Heart Rate): [92-97] 97 Resp Rate: [16] 16 BP: (116-149)/(72-81) 116/79 O2 Sat (%): [96 %] 96 % Weight: [56.4 kg (124 lb 5.4 oz)] 56.4 kg (124 lb 5.4 oz) There is no height or weight on file to calculate BMI. Lines/Drains/Airways/Wounds: Patient Lines/Drains/Airways Status Active Lines, Drains, Airways, & Wound Overview None Physical Exam General: Laying in CT scanner; in no acute distress. CV: RRR. Pulmonary: No increased work of breathing, Equal chest rise bilaterally, no audible wheezing. Abdomen: soft, non-tender Ext: No cyanosis, edema, or deformity Skin: No rash Neurological Examination Psych and Mental status: alert; expressive aphasia Speech/language: Slurred. Able to identify "pen" but speech otherwise garbled/incoherent Cranial nerves: CN II visual snyder full to confrontation without visual extinction CN III, IV, PERRL. L gaze preference, crosses midline CN V facial sensation intact to light touch bilaterally in V1, V2, V3 CN VII R facial droop CN VIII hearing grossly intact to voice CN IX & X Dysarthria/garbled speech CN XI shoulder shrug full strength bilaterally CNXII tongue protrudes midline Motor: Normal bulk and tone. R arm and CECI LE drift R>L Coordination: Unable to perform Sensation: intact to light touch throughout without extinction. Gait: Deferred Laboratory Results Diagnostics/Procedures: Labs-CBC Labs-Chem 7([facility]) Labs-Coags Additional Labs No results found for: "CHOLESTEROL", "TRIG", "HDL", "LDLCALC", "LDLDIRECT" Labs-Hemoglobin A1C No results found for: "HGBA1C" Imaging Imaging was not analyzed by [facility], No LVO (OSH CTA) CT Stroke Head:L BG IPH, remote R MCA ischemic stroke CTA Brain/Neck (OSH): No acute findings CT Perfusion: Deferred Assessment/Impression Behzad Hay present with R sided weakness/facial droop/aphasia/dysarthria likely due to L BG IPH. Plan -Please admit to Neurocritical care (NCC), attending Dr. Sher. A hemorrhagic stroke order set has been signed and held. ICH score 2 -Neurosurgery consulted. Appreciate recommendations -Check PT/INR/PTT and reverse any coagulopathy -Blood pressure goals with SBP less than 140 -Repeat a head CT [address], Cardene gtt ordered -No anticoagulation, antiplatelet therapy and pharmacological DVT prophylaxis until a follow up head CT/MRI has been completed to ensure stability of hemorrhage -Obtain brain MRI with and without contrast unless contraindicated -Swallow evaluation prior to any oral intake -ECHO to evaluate cardiac function -Lipid panel, LFTs and HgbA1c to evaluate secondary risk factors -Baseline EKG, if not done in ED. Continuous telemetry -PT, OT, Speech and delinquency prevention social worker consults Other problems: Complexity. Wound Documentation Any conditions listed below are present on admission unless otherwise specified. . Critical Care billing for Acute Hemorrhagic Stroke evaluation I personally attended to this critically ill patient for a total time of 35 minutes including stroke evaluation, determining the appropriateness of administering treatment, discussing with the team, and initiating medical management and treatment of acute hemorrhagic stroke. This plan has been discussed with stroke Attending Dr. Mar and has been communicated to ED and NCCU teams. REID Botello 10/18/2024 2:23 PM Cosigned by Mayra Mar MD at 10/22/2024 10:08 PM EDT documented in this encounter [facility] 10-18-2024 Telephone encounter Note Both Eliquis and Lopressor were refilled in August for year supply to [facility]. Pt notified via [employer] to check with pharmacy for refill. Mara Hatch MA [facility] 10-18-2024 Miscellaneous Notes Both Eliquis and Lopressor were refilled in August for year supply to [facility]. Pt notified via Bo[employer] to check with pharmacy for refill. Mara Hatch MA documented in this encounter [facility] 10-18-2024 Emergency department Note Bed: E037 Expected date: Expected time: Means of arrival: Comments: 34 ED Staffing Note Chief complaint: Chief Complaint Patient presents with Extremity Weakness Behzad Hay is a 84 y.o. year old female who presents with ich nih 5 at osh, 17 on arrival. Full code per ems. No past medical history on file. No past surgical history on file. Review of systems as per HPI DDx includes but is not limited to (includes acute threats to life and/or bodily function): Ich Flutter herniation Impression: ich Plan: Bp<140 Ct head Neurovasc Neurosurg Labs EKG Review osh records Cardene ED Course: Patient with ich on osh imaging, worsening nih on arrival. Received kcentra for eliquis at osh. Patient evaluated by neurosurg - no acute intervention. Will admit to nccu for ongoing neuro monitoring. EKG Interpretation Interpreted by emergency department physician Rhythm: atrial flutter Rate: normal ST Segments: no acute change T Waves: no acute change Clinical Impression: atrial flutter Curt Diallo MD Prior medical records were reviewed. All pertinent labs and imaging results were reviewed and interpreted by me. The patient was updated regarding findings, and was re-assessed during ED stay. On 10/18/2024 I saw and examined the patient. I discussed the history and examination with the resident and agree with the plan of care. In addition, I have fully participated in the care of this patient. I have reviewed all pertinent clinical information, including history, physical exam and medical decision making with the resident. Critical Care time 35 minutes. Total number of minutes spent in direct and indirect care of this critically ill patient excludes procedure time. High risk for neurologic collapse in setting of ich. Time spent evaluating pt, reeval, review of osh record, coordinating care with neurovasc/neurosurg, review of labs/imaging Curt Diallo MD 10/18/24 1451 Bed: E034 Expected date: 10/18/24 Expected time: 12:00 AM Means of arrival: Comments: EMERGENCY DEPARTMENT ENCOUNTER Patient: Behzad Hay : 1940 Primary Care Provider: No primary care provider on file. Date of Exam: 10/18/2024 CHIEF COMPLAINT Chief Complaint Patient presents with Extremity Weakness HPI Behzad Hay is a 84 y.o. female, with a PMHx of atrial fibrillation, who presents as a transfer from OSH as a hemorrhagic stroke alert. The patient is on Eliquis. Got K-centra at OSH. CT angio at OSH showed a L thalamic hematoma as well as chronic ischemic changes. LKW 0630. Patient presented to the CT scanner with air medical transport . PAST MEDICAL HISTORY No past medical history on file. SURGICAL HISTORY No past surgical history on file. CURRENT MEDICATIONS No current outpatient medications on file. ALLERGIES Not on File Family history reviewed and noncontributory other than: No family history on file. Social history reviewed and noncontributory other than: Social History Socioeconomic History Marital status: Spouse name: Not on file Number of children: Not on file Years of education: Not on file Highest education level: Not on file Occupational History Not on file Tobacco Use Smoking status: Not on file Smokeless tobacco: Not on file Substance and Sexual Activity Alcohol use: Not on file Drug use: Not on file Sexual activity: Not on file Other Topics Concern Not on file Social History Narrative Not on file Social Drivers of Health Financial Resource Strain: Low Risk (09/27/2024) Received from [facility] Overall Financial Resource Strain (CARDIA) Difficulty of Paying Living Expenses: Not very hard Food Insecurity: No Food Insecurity (09/27/2024) Received from [facility] Hunger Vital Sign Worried About Running Out of Food in the Last Year: Never true Ran Out of Food in the Last Year: Never true Transportation Needs: No Transportation Needs (09/27/2024) Received from [facility] PRAPARE - Transportation Lack of Transportation (Medical): No Lack of Transportation (Non-Medical): No Physical Activity: Insufficiently Active (09/27/2024) Received from [facility] Exercise Vital Sign Days of Exercise per Week: 7 days Minutes of Exercise per Session: 10 min Stress: No Stress Concern Present (09/27/2024) Received from [facility] [employer] [place] [employer] - Occupational Stress Questionnaire Feeling of Stress : Not at all Social Connections: Moderately Integrated (09/27/2024) Received from [facility] Social Connection and Isolation Panel [NHANES] Frequency of Communication with Friends and Family: More than three times a week Frequency of Social Gatherings with Friends and Family: More than three times a week Attends Mu-Ism Services: More than 4 times per year Active Member of Clubs or Organizations: Yes Attends Club or Organization Meetings: 1 to 4 times per year Marital Status: Personal Safety: Not on file Housing Stability: Low Risk (08/13/2023) Received from [facility] Housing Stability Vital Sign Unable to Pay for Housing in the Last Year: No Number of Places Lived in the Last Year: 1 Unstable Housing in the Last Year: No PHYSICAL EXAM Vital Signs: BP 135/65 Pulse 83 Temp 98.7 F (37.1 C) (Oral) Resp 21 Wt 56.4 kg (124 lb 5.4 oz) SpO2 98% Physical Exam Vitals and nursing note reviewed. Constitutional: General: She is not in acute distress. Appearance: She is normal weight. She is not toxic-appearing or diaphoretic. HENT: Head: Normocephalic and atraumatic. Mouth/Throat: Mouth: Mucous membranes are moist. Pharynx: Oropharynx is clear. No oropharyngeal exudate or posterior oropharyngeal erythema. Eyes: General: No scleral icterus. Extraocular Movements: Right eye: Abnormal extraocular motion present. Left eye: Abnormal extraocular motion present. Conjunctiva/sclera: Conjunctivae normal. Pupils: Pupils are equal, round, and reactive to light. Cardiovascular: Rate and Rhythm: Normal rate. Rhythm irregular. Pulses: Normal pulses. Heart sounds: Normal heart sounds. No murmur heard. Pulmonary: Effort: Pulmonary effort is normal. No respiratory distress. Breath sounds: Normal breath sounds. No stridor. No wheezing. Abdominal: General: Abdomen is flat. Bowel sounds are normal. There is no distension. Palpations: Abdomen is soft. Tenderness: There is no abdominal tenderness. Musculoskeletal: General: No swelling or tenderness. Skin: General: Skin is warm and dry. Coloration: Skin is not jaundiced. Findings: No bruising, erythema or rash. Neurological: General: No focal deficit present. Mental Status: She is alert and oriented to person, place, and time. GCS: GCS eye subscore is 4. GCS verbal subscore is 3. GCS motor subscore is 6. Cranial Nerves: Dysarthria and facial asymmetry (R sided droop) present. Motor: Weakness (R sided) and pronator drift present. No tremor. NIH: NIHSS (Provider) Flowsheet Row First Filed Value Provider NIH Stroke Scale NIH Interval (Provider) admission filed on 10/18/2024 1338 NIH Level of Conciousness (Provider) 0 filed on 10/18/2024 1338 NIH LOC Questions (Provider) 2 filed on 10/18/2024 1338 NIH LOC Commands (Provider) 1 filed on 10/18/2024 1338 NIH Best Gaze (Provider) 1 filed on 10/18/2024 1338 NIH Visual (Provider) 0 filed on 10/18/2024 1338 NIH Facial Palsy (Provider) 1 filed on 10/18/2024 1338 NIH Left Arm Motor (Provider) 0 filed on 10/18/2024 1338 NIH Right Arm Motor (Provider) 2 filed on 10/18/2024 1338 NIH Left Leg Motor (Provider) 2 filed on 10/18/2024 1338 NIH Right Leg Motor (Provider) 3 filed on 10/18/2024 1338 NIH Limb Ataxia (Provider) 0 filed on 10/18/2024 1338 NIH Sensory (Provider) 0 filed on 10/18/2024 1338 NIH Best Language (Provider) 2 filed on 10/18/2024 1338 NIH Dysarthria (Provider) 2 filed on 10/18/2024 1338 NIH Extinction and Inattention (Provider) 0 filed on 10/18/2024 1338 NIH Total Score (Provider) 16 filed on 10/18/2024 1338 Is NIH=0 Within 180 min of Last Known Well Time? -- Results for orders placed or performed during the hospital encounter of 10/18/24 PTINR-STROKE Result Value Ref Range PT 13.9 11.9 - 14.2 sec INR 1.1 0.9 - 1.1 PTT Result Value Ref Range PTT 31.9 24.0 - 34.3 sec [facility] 7 - ED Result Value Ref Range Sodium 137 135 - 145 mmol/L Potassium 4.2 3.5 - 5.0 mmol/L Chloride 105 98 - 108 mmol/L CO2 27 21 - 31 mmol/L Glucose 114 Nonfastin-179 mg/dL; Fastin-99 mg/dL BUN 16 7 - 25 mg/dL Creatinine 0.86 0.50 - 1.20 mg/dL Bun/Crea Ratio 19 Osmolality (Calculated) 290 278 - 305 mOsm/kg Anion Gap 9 7 - 17 mmol/L eGFR, CKD-EPI, Female 66 >=60 mL/min/1.73m2 PHOSPHATE, INORGANIC Result Value Ref Range Phosphorous 3.6 2.2 - 4.6 mg/dL MAGNESIUM Result Value Ref Range Magnesium 2.0 1.6 - 2.6 mg/dL CALCIUM Result Value Ref Range Calcium 8.9 8.6 - 10.5 mg/dL HEPATIC FUNCTION PANEL Result Value Ref Range Albumin 3.8 3.5 - 5.0 g/dL Bilirubin Direct 0.1 <0.3 mg/dL Bilirubin Total 0.4 <1.5 mg/dL ALP 184 (H) 32 - 126 U/L ALT 84 (H) 9 - 48 U/L AST 58 (H) 10 - 39 U/L Total Protein 6.4 6.4 - 8.3 g/dL HIGH SENSITIVITY TROPONIN I - SINGLE ORDER Result Value Ref Range hs-Troponin I 8 <34 ng/L CBC AND ELECTRONIC DIFF Result Value Ref Range WBC Count 8.14 3.99 - 11.19 K/uL RBC Count 3.86 (L) 3.91 - 5.04 M/uL Hemoglobin 12.0 11.4 - 15.2 g/dL Hematocrit 37.7 34.9 - 44.3 % Mean Cell Volume 97.7 79.6 - 97.7 fL Mean Cell Hgb 31.1 25.9 - 33.9 pg Mean Cell Hgb Conc 31.8 31.4 - 35.9 g/dL RBC Distribution 12.6 10.8 - 14.9 % Platelet Count 273 150 - 393 K/uL Mean Platelet Volume 8.9 8.5 - 12.2 fL MANUAL DIFF Result Value Ref Range DIFF STATUS Manual Differential Bands Relative 0.0 % Segs Relative 40.1 % Lymph Relative 26.8 % Waller Relative 3.6 % Eos Relative 28.6 % Baso Relative 0.9 % Segs & Bands, Absolute 3.26 1.64 - 7.28 K/uL Abs Lymph Manual 2.18 1.16 - 3.51 K/uL Abs Waller Manual 0.29 0.22 - 0.87 K/uL Abs Eos Manual 2.33 (H) 0.00 - 0.42 K\\uL Abs Baso Manual 0.07 0.00 - 0.15 K/uL RBC Morphology RBC INDICES CONFIRMED WITH MANUAL SLIDE REVIEW Platelet Estimate Automated platelet count confirmed by manual slide review URINALYSIS REFLEX TO CULTURE PERFORMABLE Result Value Ref Range Color Yellow Yellow Appearance Urine Clear Clear Glucose Urine Negative Negative Ketones Urine Negative Negative Specific [place] Urine 1.024 1.001 - 1.035 Blood Urine Trace (A) Negative pH Urine 7.5 (A) 5.0 - 7.0 Protein Urine Negative Negative Urobilinogen Urine 0.2 E.U./dL 0.2 E.U/dL, 1.0 E.U/dL Nitrites Urine Negative Negative Leukocyte Esterase Trace (A) Negative RBC Urine 6-10 (A) 0 - 2 /HPF WBC Urine 0 - 5 0 - 5 /HPF Squamous/Epithelial Cells, Urine 0-2/hpf 0-2/hpf, 3-5/hpf = 1+ Bacteria ABSENT ABSENT CT STROKE HEAD-STROKE ALERT ONLY (Results Pending) CT HEAD WITHOUT CONTRAST (Results Pending) MRI BRAIN STROKE WITH AND WITHOUT CONTRAST (Results Pending) Vitals: 10/18/24 1445 10/18/24 1455 10/18/24 1500 10/18/24 1505 BP: 128/69 153/75 125/65 135/65 Pulse: 88 86 84 83 Resp: (!) 25 (!) 34 16 21 Temp: TempSrc: SpO2: 98% 97% 97% 98% Weight: ED COURSE & MEDICAL DECISION MAKING Medical Decision Making Amount and/or Complexity of Data Reviewed Labs: ordered. Radiology: ordered. ECG/medicine tests: ordered. Risk Prescription drug management. Decision regarding hospitalization. Behzad Hay is a 84 y.o. female, with a PMHx of atrial fibrillation on Eliquis and HTN, who presents from an OSH with a L thalamic hematoma with dysarthria and R sided deficits. Differential includes but is not limited to ischemic stroke, hemorrhagic stroke, TIA, metabolic abnormalities, intracranial mass (malignancy, met, other), migraine, seizure, bells palsy, conversion disorder vs other unknown etiology. Initial ED workup will include POC glucose, EKG, troponin, CBC, BMP, hepatic function panel, UA with reflex to culture as well as CT head. BP goal <140 SBP (hemorrhagic) BG goal 100-200 Will consult neurosurgery. Will start Cardene drip for SBP goals Disposition Admitted to Neurovascular PCU This plan was discussed with my attending physician, Curt Diallo MD. All questions were answered, and the patient was agreeable with this plan. Unless noted in ED course, the patient remained hemodynamically stable with their symptoms well controlled in the department. A [id number] dictation tool was used in the production of this document and all attempts were made for proper editing but errors may occur. Gary Fraser MD Resident 10/18/24 154 documented in this encounter [facility] 10-18-2024 Discharge summary [facility] 10-18-2024 Radiology Diagnostic study note [facility] Imaging Services [address] [place] [address] [id number] Chest 1 View MR#: [id number] Acct: [id number] Name: BEHZAD HAY Rep #: [id number] : 1940 F 84 From: Roque Rodriguez DO PCP: Tasha Deutsch, OUTREACH COORDINATOR Status: REG ER Study:Chest 1 View Date of Exam: 5 Exam# [id number] Ordering Dr: Wellington Woods DO PROCEDURE: CHEST 1 VIEW 10/18/2024 REASON FOR EXAM: NEURO DEFICIT, ACUTE, STROKE SUSPECTED TECHNIQUE: Frontal view of the chest. COMPARISON: Slightly dated 08/16/2024 FINDINGS: The heart size is mildly enlarged however similar in size and configuration whencompared to the prior study. Arteriosclerotic vascular disease aorta is noted. Trachea is midline. Pulmonary vasculature is unremarkable. Lungs are expanded and clear without evidence of atelectasis, consolidation, effusion or pneumonic infiltrate. Diffuse osteopenia of the bony thorax is seen. Arthritic changes of both shoulders are noted. RAD/Chest 1 View IMPRESSION: No acute cardiopulmonary process identified radiographically. Stable mild cardiomegaly. Arteriosclerotic vascular disease of the aorta. Diffuse osteopenia f the bony thorax with arthritic changes of both shoulders. Reading Location: [id number] CC: OUTREACH COORDINATOR Tasha Deutsch; Dr. Mihai Woods DO ~ Patient Carrier: Signed [facility] 10-18-2024 Radiology Diagnostic study note [facility] Imaging Services [address] [place] [address] [id number] STROKE CTA Head AND Neck W/Con MR#: [id number] Acct: [id number] Name: BEHZAD HAY Rep #: [id number] : 1940 F 84 From: Felipe José MD PCP: GARFIELD Maldonado Status: REG ER Study:STROKE CTA Head AND Neck W/Con Date of Exam: 10/18/24 Exam# [id number] Ordering Dr: Wellington Woods DO PROCEDURE: STROKE CTA HEAD AND NECK W/CON 10/18/2024 REASON FOR EXAM: NEURO DEFICIT, ACUTE, STROKE SUSPECTED TECHNIQUE: STROKE CTA HEAD AND NECK W/CON Multiplanar Sagittal and Coronal images were obtained. CONTRAST: Isovue 370 VOLUME: 100 mL One or more dose reduction techniques were used (e.g., Automated exposure control, adjustment of the mA and/or kV according to patient size, use of iterative reconstruction technique). RADIATION DOSE SUMMARY: CTDlvol: 23 mGy DLP: 572.05 mGycm COMPARISON: Prior study dated August 18, 2024. FINDINGS: Aortic Arch: Normal size and branching pattern. Mild atherosclerotic plaque. Brachiocephalic and Subclavians: Mild atherosclerotic plaque without significantstenosis. RIGHT Carotid: Right CCA: Unremarkable. Right ICA: No significant stenosis seen. Maximum stenosis (NASCET): <50% % Right ECA: Unremarkable LEFT Carotid: Left CCA: Unremarkable. Left ICA: Moderate calcified and soft plaque. Maximum stenosis (NASCET): 60 % Left ECA: Unremarkable Vertebrals: Codominant. Arise from the subclavians. Both vertebrals form the basilar. RIGHT Vertebral: Unremarkable. LEFT Vertebral: Unremarkable. Anatomy: [place] of June anatomy is normal. Aneurysm or avm: No intracranial aneurysms or large vascular malformations are identified. Anterior cerebral arteries: Unremarkable: Middle cerebral arteries: Unremarkable. Basilar artery: Unremarkable. Posterior cerebral arteries: Unremarkable. Other major branches of the posterior circulation: Stable irregular appearance of the posterior inferior cerebellar arteries bilaterally. Major venous structures: Unremarkable. Other findings: Neck: Lungs: Bones: CT/STROKE CTA Head AND Neck W/Con IMPRESSION: No acute abnormality is seen. Stable examination. Reading Location: [place] [id number] CC: OUTREACH COORDINATOR Tasha Deutsch; Dr. Mihai Woods DO ~ Patient Carrier: Signed [facility] 10-18-2024 Radiology Diagnostic study note [facility] Imaging Services [address] [place] [address] [id number] STROKE Brain/Head without Cont MR#: [id number] Acct: [id number] Name: BEHZAD HAY Rep #: [id number] : 1940 F 84 From: Felipe José MD PCP: Tasha Deutsch, OUTREACH COORDINATOR Status: REG ER Study:STROKE Brain/Head without Cont Date of Exam: 10/18/24 Exam# [id number] Ordering Dr: Wellington Woods DO PROCEDURE: STROKE BRAIN/HEAD WITHOUT CONT 10/18/2024 REASON FOR EXAM: NEURO DEFICIT, ACUTE, STROKE SUSPECTED TECHNIQUE: STROKE BRAIN/HEAD WITHOUT CONT Coronal and Sagittal reconstruction series were provided. One or more dose reduction techniques were used (e.g., Automated exposure control, adjustment of the mA and/or kV according to patient size, use of iterative reconstruction technique. RADIATION DOSE SUMMARY: CTDlvol: 44.99 mGy DLP: 779.24 mGycm COMPARISON: Prior study dated August 1810/2024. FINDINGS: Brain: Low density in the periventricular white matter suggests mild chronic small vessel ischemic changes. There is a 1.6 cm by 1.2 cm hematoma in the left thalamus. Dense calcification of the cavernous portions of the internal carotid arteries bilaterally as well as the basilar artery. CSF Spaces: Mild generalized cerebral atrophy Sinuses/Mastoids: Clear at visualized levels Bones: Unremarkable CT/STROKE Brain/Head without Cont IMPRESSION: 1.6 cm 1.2 cm hematoma in the left thalamus. Red Alert: Left thalamic hematoma The critical information above was relayed directly by me by telephone to Mihai Woods on 10/18/2024 at 11:16 am with readback verification. Reading Location: [place] [address] CC: GARFIELD Deutsch; Dr. Mihai Woods, DO ~ Patient Carrier: Signed [facility] 10-14-2024 Miscellaneous Notes SITUATION: only patient and private duty caregiver present during today's visit. patient reports the following changes since the last homecare visit: medications/allergies--None, falls--None. patient reports no acute pain. BACKGROUND: Diagnoses (reason for Home Care): Ataxia following cerebral infarction Objective: Patient presents with: aphasia, apraxia, cognitive linguistic deficits and short term memory deficits (see assessment for full details) ASSESSMENT: Patient demonstrated a need for further skilled ST services for instruction and education related to cognitive linguistic skills, language skills and speech skills. Plan of care and visit frequency Reviewed with patient. Current Discharge plan: self-care and family support; anticipated discharge date 11/13/24. RECOMMENDATION: Recommend continued speech therapy intervention 1w4 to focus on cognitive linguistic skills, language skills and speech skills. documented in this encounter [facility] 10-14-2024 Patient's home Note SITUATION: only patient and private duty caregiver present during today's visit. patient reports the following changes since the last homecare visit: medications/allergies--None, falls--None. patient reports no acute pain. BACKGROUND: Diagnoses (reason for Home Care): Ataxia following cerebral infarction Objective: Patient presents with: aphasia, apraxia, cognitive linguistic deficits and short term memory deficits (see assessment for full details) ASSESSMENT: Patient demonstrated a need for further skilled ST services for instruction and education related to cognitive linguistic skills, language skills and speech skills. Plan of care and visit frequency Reviewed with patient. Current Discharge plan: self-care and family support; anticipated discharge date 11/13/24. RECOMMENDATION: Recommend continued speech therapy intervention 1w4 to focus on cognitive linguistic skills, language skills and speech skills. [facility] Work Phone: 10-14-2024 Progress note Formatting of t his note might be different from the original. Please let patient know that there was some bacteria in her urine but not an infection. They did not even do sensitivity as this did not need treated. Increase water intake. [facility] 10-14-2024 Miscellaneous Notes Please let patient know that there was some bacteria in her urine but not an infection. They did not even do sensitivity as this did not need treated. Increase water intake. documented in this encounter [facility] 10-13-2024 Miscellaneous Notes SITUATION: only patient and private duty caregiver present during today's visit. patient reports the following changes since the last homecare visit: medications/allergies--None, falls--None. patient reports no current pain. BACKGROUND: Diagnoses (reason for Home Care): Ataxia following cerebral infarction Objective: Patient's performance today: mod cueing to complete: language skills and speech skills. ASSESSMENT: Patient demonstrates a need for further skilled SUPERVISOR OF INSTRUCTION services for cognitive linguistic skills, language skills and speech skills. Plan of care, progress towards goals, and visit frequency reviewed with patient. Patient is making progress towards goals Current Discharge plan: {self-care and family support; anticipated discharge date 10/16/24. RECOMMENDATION: Next visit to focus on cognitive linguistic skills, language skills and speech skills. See intervention summary for intervention/education details. documented in this encounter [facility] 10-13-2024 Patient's home Note SITUATION: only patient and private duty caregiver present during today's visit. patient reports the following changes since the last homecare visit: medications/allergies--None, falls--None. patient reports no current pain. BACKGROUND: Diagnoses (reason for Home Care): Ataxia following cerebral infarction Objective: Patient's performance today: mod cueing to complete: language skills and speech skills. ASSESSMENT: Patient demonstrates a need for further skilled SUPERVISOR OF INSTRUCTION services for cognitive linguistic skills, language skills and speech skills. Plan of care, progress towards goals, and visit frequency reviewed with patient. Patient is making progress towards goals Current Discharge plan: {self-care and family support; anticipated discharge date 10/16/24. RECOMMENDATION: Next visit to focus on cognitive linguistic skills, language skills and speech skills. See intervention summary for intervention/education details. [facility] Work Phone: 10-13-2024 Miscellaneous Notes SITUATION: Pt. seen for ALCAZAR Routine Visit. private duty caregiver present during today's visit. patient reports the following since the last homecare visit: medications/allergies--no changes, no fall. patient reports She slept a lot better last night, She has been doing her exercises and practicing her writing. BACKGROUND: Diagnoses or reason for Home Care: Ataxia following cerebral infarction [facility] 08/22/24 on 09/20/24 Weight Bearing or Precautions: falls ASSESSMENT: Focus of Visit Bathroom Transfers, balance Patient identified goals "to get better" Plan of care, goals, and visit frequency reviewed and agreed upon with patient and/or caregiver. See intervention summary for intervention/education details. Current Discharge Plan: remain in community with/without caregiver support. Anticipate discharge by 10/29/2024 RECOMMENDATION: Next visit to focus on Pt. to be seen next by OTR/L. documented in this encounter [facility] 10-13-2024 Patient's home Note SITUATION: Pt. seen for ALCAZAR Routine Visit. private duty caregiver present during today's visit. patient reports the following since the last homecare visit: medications/allergies--no changes, no fall. patient reports She slept a lot better last night, She has been doing her exercises and practicing her writing. BACKGROUND: Diagnoses or reason for Home Care: Ataxia following cerebral infarction [facility] 08/22/24 on 09/20/24 Weight Bearing or Precautions: falls ASSESSMENT: Focus of Visit Bathroom Transfers, balance Patient identified goals "to get better" Plan of care, goals, and visit frequency reviewed and agreed upon with patient and/or caregiver. See intervention summary for intervention/education details. Current Discharge Plan: remain in community with/without caregiver support. Anticipate discharge by 10/29/2024 RECOMMENDATION: Next visit to focus on Pt. to be seen next by OTR/L. [facility] Work Phone: 10-12-2024 Instructions Tasha Deutsch APRN.CNP - 10/12/2024 12:15 PM EDT 1) Macrobid daily for 3 days 2) Will send urine for culture 3) Consider cranberry 4 oz daily 4) Loratadine 10 mg daily documented in this encounter [facility] 10-12-2024 Note HNO ID: [id number] Author: TASHA DEUTSCH APRN.CNP Service: ? Author Type: Nurse Practitioner Type: Progress Notes Filed: 10/12/2024 12:16 Note Text: This is a 84 year old female who presents today with: Patient presents with: UTI: Urinary incontinence at night and some confusion URI: Runny nose HISTORY OF PRESENT ILLNESS: Behzad Hay is a 84 year old female. Patient presents with: UTI: Urinary incontinence at night and some confusion URI: Runny nose In hospital, UTI was identified because of some incontinence and confusion. That has reoccurred. No pain. No fever or chills. No pain. A little unstable. UTI was positive for e coli Some congestion- she attributes to a cold PAST MEDICAL HISTORY: PAST MEDICAL HISTORY Diagnosis Date Abnormal CT of the abdomen 01/24/2014 localized perihepatic fluid indeterminate, 4mm density too small for ID, fusiforma sortic ectasia Anemia Arthritis Cerebral degeneration Collagenous colitis Degenerative lumbar disc Dyslipidemia GERD (gastroesophageal reflux disease) H/O colonoscopy 09/23/2014 small internal hemorrhoids otherwise WNL. No further surveillance recommended Hiatal hernia History of esophagogastroduodenoscopy (EGD) 09/23/2014 [facility]: All normal HTN (hypertension) Hyperlipidemia, mixed Osteoarthritis Osteopenia PUD (peptic ulcer disease) 2013 Vitamin D deficiency PAST SURGICAL HISTORY Procedure Laterality Date BUNIONECTOMY, LAPIDUS-TYPE Left 03/30/2007 Dr. Beltran BUNIONECTOMY, LAPIDUS-TYPE Right 03/30/2008 Dr. Beltran CATARACT EXTRACTION W/ INTRAOCULAR LENS IMPLANT HX Left 03/31/2003 Dr. Sosa COLONOSCOPY 09/23/2014 colonoscopy Samara Rodarte internal hemorrhoids, otherwise WNL COLONOSCOPY FLX DX W/COLLJ SPEC WHEN PFRMD 09/01/[address] ABDOMEN AND PELVIS W/CONT 01/24/2014 localized yan hepatic unclear etiology, inflammatory vs metastatic disease; EGD 09/23/2014 Dr. Zoe Diana Normal esophagus, z-line, stomach and duodenum ESOPHAGOGASTRODUODENOSCOPY TRANSORAL DIAGNOSTIC 09/01/2020 EYE SURGERY HX INCISE FINGER TENDON SHEATH Right 12/26/2016 Right ring trigger finger release JOINT REPLACEMENT HX LAP UMBILICAL HERNIA REPAIR 02/24/2014 Umbilical hernia repair REMOVE CATARACT, INSERT LENS,EX Right REMV CATARACT EXTRACAP,INSERT LENS Right 03/31/2003 REMV CATARACT EXTRACAP,INSERT LENS Left 02/17/2003 REVJ TOT HIP ARTHRP BTH W/WO AGRFT/ALGRFT Right 05/30/2011 ROTATOR CUFF REPAIR Right 2013 R rotator cuff repair TONSILLECTOMY HX TONSILLECTOMY PRIMARY/SECONDARY Tonsillectomy TOTAL HIP JOINT REPLACEMENT Left 10/03/2014 ALLERGIES Adhesive Tape (Rosins), Bactrim [Sulfamethoxazole-Trimethoprim], Macrobid [Nitrofurantoin Monohyd/M-Cryst], and Ufolouf-Uqc-Ibx Reductase Inhibitors MEDICATIONS Current Outpatient Medications Medication Sig acetaminophen (TYLENOL ARTHRITIS PAIN) 650 mg CR tablet Take 650 mg by mouth once daily. Cholecalciferol, Vitamin D3, (VITAMIN D) 25 mcg (1,000 unit) cap Take 1,000 Units by mouth once daily. lisinopril (ZESTRIL) 10 mg tablet Take 10 mg by mouth two times a day. apixaban (ELIQUIS) 2.5 mg tab(s) Take 1 tablet by mouth two times a day. metoprolol tartrate, short acting, (LOPRESSOR) 25 mg tablet Take 1 tablet by mouth two times a day. cyanocobalamin, vitamin B-12, 500 mcg chew Take 1 tablet by mouth once daily. TURMERIC ORAL Take 1 tablet by mouth once daily. Patient should start on September 22, 2024. CAPSICUM, CAYENNE, ORAL Take 1 capsule by mouth once daily. Patient should start on September 22, 2024. FLAXSEED OIL ORAL Take by mouth. GARLIC ORAL Take 1 tablet by mouth once daily. Patient should start on September 22, 2024. cranberry fruit extract (CRANBERRY ORAL) Take 650 mg by mouth once daily. LACTOBACILLUS ACIDOPHILUS (PROBIOTIC ACIDOPHILUS ORAL) Take by mouth. multivitamin ORAL tablet Take 1 tablet by mouth once daily. ZINC ORAL Take 50 mg by mouth once daily. (Patient not taking: Reported on 10/04/2024) estradiol (ESTRACE) 0.01 % (0.1 mg/gram) vaginal cream Apply pea-sized amount to perineum and 1 applicator vaginally Mon, Wed, Fri for atrophic vaginitis. No current facility-administered medications for this visit. FAMILY HISTORY Problem Relation Age of Onset Cancer Mother Hypertension Mother other (CVA) Mother age 86 Heart Father other (CVA) Father age 81 Ischemic Heart Disease Brother age 76 other (CVA) Brother other (ADMISSIONS COUNSELOR shunt) Brother Hypertension Sister Diabetes Sister age 66 (sepsis) Social History Tobacco Use Smoking status: Never Smokeless tobacco: Never Vaping Use Vaping status: Never Used Substance Use Topics Alcohol use: No Drug use: No EXAM: BP 138/82 Pulse 60 Temp 36.4 ?C (97.6 ?F) (Left Tympanic) Wt 53.5 kg (118 lb) SpO2 98% BMI 21.58 kg/m? PHYSICAL EXAM: Physical Exam Tati (more content not included)... [facility] 10-12-2024 History of Present illness Narrative This is a 84 year old female who presents today with: Patient presents with: UTI: Urinary incontinence at night and some confusion URI: Runny nose HISTORY OF PRESENT ILLNESS: Behzad Hay is a 84 year old female. Patient presents with: UTI: Urinary incontinence at night and some confusion URI: Runny nose In hospital, UTI was identified because of some incontinence and confusion. That has reoccurred. No pain. No fever or chills. No pain. A little unstable. UTI was positive for e coli Some congestion- she attributes to a cold PAST MEDICAL HISTORY: PAST MEDICAL HISTORY Diagnosis Date Abnormal CT of the abdomen 01/24/2014 localized perihepatic fluid indeterminate, 4mm density too small for ID, fusiforma sortic ectasia Anemia Arthritis Cerebral degeneration Collagenous colitis Degenerative lumbar disc Dyslipidemia GERD (gastroesophageal reflux disease) H/O colonoscopy 09/23/2014 small internal hemorrhoids otherwise WNL. No further surveillance recommended Hiatal hernia History of esophagogastroduodenoscopy (EGD) 09/23/2014 [facility]: All normal HTN (hypertension) Hyperlipidemia, mixed Osteoarthritis Osteopenia PUD (peptic ulcer disease) 2014 Vitamin D deficiency PAST SURGICAL HISTORY Procedure Laterality Date BUNIONECTOMY, LAPIDUS-TYPE Left 03/30/2007 Dr. Beltran BUNIONECTOMY, LAPIDUS-TYPE Right 03/30/2008 Dr. Beltran CATARACT EXTRACTION W/ INTRAOCULAR LENS IMPLANT HX Left 03/31/2003 Dr. Sosa COLONOSCOPY 09/23/[address] Addy Enriquez, [place] internal hemorrhoids, otherwise WNL COLONOSCOPY FLX DX W/COLLJ SPEC WHEN PFRMD 09/01/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 Zoe Diana Normal esophagus, z-line, stomach and duodenum ESOPHAGOGASTRODUODENOSCOPY TRANSORAL DIAGNOSTIC 09/01/2020 EYE SURGERY HX INCISE FINGER TENDON SHEATH Right 12/26/2016 Right ring trigger finger release JOINT REPLACEMENT HX LAP UMBILICAL HERNIA REPAIR 02/24/2014 Umbilical hernia repair REMOVE CATARACT, INSERT LENS,EX Right REMV CATARACT EXTRACAP,INSERT LENS Right 03/31/2003 REMV CATARACT EXTRACAP,INSERT LENS Left 02/17/2003 REVJ TOT HIP ARTHRP [facility] W/WO AGRFT/ALGRFT Right 05/30/2011 ROTATOR CUFF REPAIR Right 2013 R rotator cuff repair TONSILLECTOMY HX TONSILLECTOMY PRIMARY/SECONDARY <AGE 12 Tonsillectomy TOTAL HIP JOINT REPLACEMENT Left 10/03/2014 ALLERGIES Adhesive Tape (Rosins), Bactrim [Sulfamethoxazole-Trimethoprim], Macrobid [Nitrofurantoin Monohyd/M-Cryst], and Zjdzmmu-Eog-Wln Reductase Inhibitors MEDICATIONS Current Outpatient Medications Medication Sig acetaminophen (TYLENOL ARTHRITIS PAIN) 650 mg CR tablet Take 650 mg by mouth once daily. Cholecalciferol, Vitamin D3, (VITAMIN D) 25 mcg (1,000 unit) cap Take 1,000 Units by mouth once daily. lisinopril (ZESTRIL) 10 mg tablet Take 10 mg by mouth two times a day. apixaban (ELIQUIS) 2.5 mg tab(s) Take 1 tablet by mouth two times a day. metoprolol tartrate, short acting, (LOPRESSOR) 25 mg tablet Take 1 tablet by mouth two times a day. cyanocobalamin, vitamin B-12, 500 mcg chew Take 1 tablet by mouth once daily. TURMERIC ORAL Take 1 tablet by mouth once daily. Patient should start on September 22, 2024. CAPSICUM, CAYENNE, ORAL Take 1 capsule by mouth once daily. Patient should start on September 22, 2024. FLAXSEED OIL ORAL Take by mouth. GARLIC ORAL Take 1 tablet by mouth once daily. Patient should start on September 22, 2024. cranberry fruit extract (CRANBERRY ORAL) Take 650 mg by mouth once daily. LACTOBACILLUS ACIDOPHILUS (PROBIOTIC ACIDOPHILUS ORAL) Take by mouth. multivitamin ORAL tablet Take 1 tablet by mouth once daily. ZINC ORAL Take 50 mg by mouth once daily. (Patient not taking: Reported on 10/04/2024) estradiol (ESTRACE) 0.01 % (0.1 mg/gram) vaginal cream Apply pea-sized amount to perineum and 1 applicator vaginally Mon, Wed, Fri for atrophic vaginitis. No current facility-administered medications for this visit. FAMILY HISTORY Problem Relation Age of Onset Cancer Mother Hypertension Mother other (CVA) Mother age 86 Heart Father other (CVA) Father age 81 Ischemic Heart Disease Brother age 76 other (CVA) Brother other (ADMISSIONS COUNSELOR shunt) Brother Hypertension Sister Diabetes Sister age 66 (sepsis) Social History Tobacco Use Smoking status: Never Smokeless tobacco: Never Vaping Use Vaping status: Never Used Substance Use Topics Alcohol use: No Drug use: No EXAM: BP 138/82 Pulse 60 Temp 36.4 C (97.6 F) (Left Tympanic) Wt 53.5 kg (118 lb) SpO2 98% BMI 21.58 kg/m PHYSICAL EXAM: Physical Exam Vitals reviewed. Constitutional: Appearance: Normal appearance. HENT: Head: Normocephalic. Right Ear: There is no impacted cerumen. Left Ear: There is no impacted cerumen. Nose: Congestion present. No rhinorrhea. Mouth/Throat: Pharynx: No oropharyngeal exudate or posterior oropharyngeal erythema. Cardiovascular: Rate and Rhythm: Normal rate and regular rhythm. Pulses: Normal pulses. Heart sounds: Normal heart sounds. Pulmonary: Effort: Pulmonary effort is normal. Breath sounds: Normal breath sounds. Abdominal: General: Bowel sounds are normal. Palpations: Abdomen is soft. Tenderness: There is no abdominal tenderness. There is no guarding. Musculoskeletal: Comments: Generalized weakness- walks w/ a walker Skin: General: Skin is warm and dry. Neurological: General: No focal deficit present. Mental Status: She is alert. Psychiatric: Comments: Some confusion- poor historian LABS: urine negative for nitrates and leukocytes ASSESSMENT/PLAN: 1. Dysuria - ICD9: 788.1, ICD10: R30.0 (primary diagnosis) recurrent - Patient education for prevention given - UA DIP, URINE (POC) - BACTERIAL CULTURE, URINE - Macrobid daily for 3 days 2. Confusion - ICD9: 298.9, ICD10: R41.0 Will send for urine culture - BACTERIAL CULTURE, URINE 3. Seasonal allergic rhinitis, unspecified trigger - ICD9: 477.9, ICD10: J30.2 - Loratadine 10 mg daily Discussed treatment plan and patient voices understanding. Patient's questions answered appropriately. Medications and potential side effects were discussed and patient voices understanding. Return to the office as scheduled or as needed for worsening/no improvement. Tasha Deutsch APRN.CNP documented in this encounter [facility] 10-12-2024 Telephone encounter Note Advised she would need to make an appointment to get a urine sample. Mara Hatch MA [facility] 10-12-2024 Miscellaneous Notes Advised she would need to make an appointment to get a urine sample. Mara Hatch MA documented in this encounter [facility] 10-11-2024 Miscellaneous Notes SITUATION: Only patient present during today's visit. patient and caregiver reports the following since the last homecare visit: medications/allergies--no changes, no fall. patient reports her aide just left. Reports that she hasn't been walking with the aide due to the hot and rainy weather bu they do the exercises BACKGROUND: Diagnoses (reason for Home Care): CVA Weight Bearing/Precaution Changes: no changes ASSESSMENT: Focus of visit performed standing strength . Gait training w/ rollator outdoors with supervision. Cues to sty close to the walker and pickup driver her feet . Able to make 2 laps around the complex. for a total of 14 minutes of walking Physical therapy discharged: goals achieved. Functional performance at discharge - bed mobility independent, transfers independent, ambulation independent and stairs supervision. Plan of care, goals, and discharge reviewed and agreed upon with patient and/or caregiver. RECOMMENDATION: Patient discharged from PT and is active with OT and ST. Instructions to include:home exercise program as directed See intervention summary for intervention/education details. documented in this encounter [facility] 10-11-2024 Patient's home Note SITUATION: Only patient present during today's visit. patient and caregiver reports the following since the last homecare visit: medications/allergies--no changes, no fall. patient reports her aide just left. Reports that she hasn't been walking with the aide due to the hot and rainy weather bu they do the exercises BACKGROUND: Diagnoses (reason for Home Care): CVA Weight Bearing/Precaution Changes: no changes ASSESSMENT: Focus of visit performed standing strength . Gait training w/ rollator outdoors with supervision. Cues to sty close to the walker and pickup driver her feet . Able to make 2 laps around the complex. for a total of 14 minutes of walking Physical therapy discharged: goals achieved. Functional performance at discharge - bed mobility independent, transfers independent, ambulation independent and stairs supervision. Plan of care, goals, and discharge reviewed and agreed upon with patient and/or caregiver. RECOMMENDATION: Patient discharged from PT and is active with OT and ST. Instructions to include:home exercise program as directed See intervention summary for intervention/education details. [facility] Work Phone: 10-11-2024 Miscellaneous Notes SITUATION: Pt. seen for ALCAZAR Routine Visit. private duty caregiver present during today's visit. patient reports the following since the last homecare visit: medications/allergies--no changes, no fall. patient reports She's a little tired because her sleep schedule is messed up. BACKGROUND: Diagnoses or reason for Home Care: Ataxia following cerebral infarction [facility] 08/22/24 on 09/20/24 Weight Bearing or Precautions: falls ASSESSMENT: Focus of Visit B UE [facility] [place] [facility] Patient identified goals "to get back to normal" Plan of care, goals, and visit frequency reviewed and agreed upon with patient and/or caregiver. See intervention summary for intervention/education details. Current Discharge Plan: remain in community with/without caregiver support. Anticipate discharge by 10/29/2024 RECOMMENDATION: Next visit to focus on Bathroom Transfers,balance. documented in this encounter [facility] 10-11-2024 Patient's home Note SITUATION: Pt. seen for ALCAZAR Routine Visit. private duty caregiver present during today's visit. patient reports the following since the last homecare visit: medications/allergies--no changes, no fall. patient reports She's a little tired because her sleep schedule is messed up. BACKGROUND: Diagnoses or reason for Home Care: Ataxia following cerebral infarction [facility] 08/22/24 on 09/20/24 Weight Bearing or Precautions: falls ASSESSMENT: Focus of Visit B UE [facility] [place] HEP Patient identified goals "to get back to normal" Plan of care, goals, and visit frequency reviewed and agreed upon with patient and/or caregiver. See intervention summary for intervention/education details. Current Discharge Plan: remain in community with/without caregiver support. Anticipate discharge by 10/29/2024 RECOMMENDATION: Next visit to focus on Bathroom Transfers,balance. [facility] Work Phone: 10-08-2024 Miscellaneous Notes SITUATION: Pt. seen for ALCAZAR Routine Visit. private duty caregiver present during today's visit. caregiver reports the following since the last homecare visit: medications/allergies--no changes, no fall. patient reports She is good, her putty is a little too hard, so she needs a political science research assistant one. BACKGROUND: Diagnoses or reason for Home Care: Ataxia following cerebral infarction [facility] 08/22/24 on 09/20/24 Weight Bearing or Precautions: falls ASSESSMENT: Focus of Visit Daily functional tasks, balance Patient identified goals "to get stronger" Plan of care, goals, and visit frequency reviewed and agreed upon with patient and/or caregiver. See intervention summary for intervention/education details. Current Discharge Plan: remain in community with/without caregiver support. Anticipate discharge by 10/29/2024 RECOMMENDATION: Next visit to focus on B UE [facility] HEP. documented in this encounter [facility] 10-08-2024 Patient's home Note SITUATION: Pt. seen for ALCAZAR Routine Visit. private duty caregiver present during today's visit. caregiver reports the following since the last homecare visit: medications/allergies--no changes, no fall. patient reports She is good, her putty is a little too hard, so she needs a political science research assistant one. BACKGROUND: Diagnoses or reason for Home Care: Ataxia following cerebral infarction [facility] 08/22/24 on 09/20/24 Weight Bearing or Precautions: falls ASSESSMENT: Focus of Visit Daily functional tasks, balance Patient identified goals "to get stronger" Plan of care, goals, and visit frequency reviewed and agreed upon with patient and/or caregiver. See intervention summary for intervention/education details. Current Discharge Plan: remain in community with/without caregiver support. Anticipate discharge by 10/29/2024 RECOMMENDATION: Next visit to focus on B UE [facility]. [facility] Work Phone: 10-07-2024 Miscellaneous Notes SITUATION: private duty caregiver present during today's visit. patient and caregiver reports the following changes since the last homecare visit: medications/allergies--None, falls--None. patient reports she was able to walk outside this morning with her aide. BACKGROUND: Diagnoses (reason for Home Care): Ataxia following cerebral infarction Objective: Patient's performance today: mod cueing to complete: cognitive linguistic skills. ASSESSMENT: Patient practiced sequencing with use of making cell phone calls and texting. Written instructions provided to the patient to assist with completing these tasks. Patient demonstrates a need for further skilled SUPERVISOR OF INSTRUCTION services for cognitive linguistic skills. Plan of care, progress towards goals, and visit frequency reviewed with patient and caregiver. Patient is making progress towards goals Current Discharge plan: {family support; anticipated discharge date 10/16/2024. RECOMMENDATION: Next visit to focus oncognitive linguistic skills. See intervention summary for intervention/education details. documented in this encounter [facility] 10-07-2024 Patient's home Note SITUATION: private duty caregiver present during today's visit. patient and caregiver reports the following changes since the last homecare visit: medications/allergies--None, falls--None. patient reports she was able to walk outside this morning with her aide. BACKGROUND: Diagnoses (reason for Home Care): Ataxia following cerebral infarction Objective: Patient's performance today: mod cueing to complete: cognitive linguistic skills. ASSESSMENT: Patient practiced sequencing with use of making cell phone calls and texting. Written instructions provided to the patient to assist with completing these tasks. Patient demonstrates a need for further skilled SUPERVISOR OF INSTRUCTION services for cognitive linguistic skills. Plan of care, progress towards goals, and visit frequency reviewed with patient and caregiver. Patient is making progress towards goals Current Discharge plan: {family support; anticipated discharge date 10/16/2024. RECOMMENDATION: Next visit to focus oncognitive linguistic skills. See intervention summary for intervention/education details. [facility] Work Phone: 10-07-2024 Telephone encounter Note Speech ordered [facility] 10-07-2024 Miscellaneous Notes Speech ordered This patient would benefit from continued speech therapy in the outpatient setting upon discharge from home care. I am requesting orders to be placed for outpatient speech therapy services to evaluate and treat for cognitive linguistic deficits and aphasia. The patient's daughter requested the orders be placed so that [facility] Thank you, Moni Rodríguez MA, CCC-SUPERVISOR OF INSTRUCTION documented in this encounter [facility] 10-06-2024 Miscellaneous Notes SITUATION: Pt. seen for ALCAZAR Routine Visit. friend present during today's visit. patient reports the following since the last homecare visit: medications/allergies--no changes, no fall. patient reports A nurse was just here. BACKGROUND: Diagnoses or reason for Home Care: Ataxia following cerebral infarction [facility] 08/22/24 on 09/20/24 Weight Bearing or Precautions: falls ASSESSMENT: Focus of Visit Bathroom Transfers, [facility] HEP/strengthening Patient identified goals "to get back to myself" Plan of care, goals, and visit frequency reviewed and agreed upon with patient and/or caregiver. See intervention summary for intervention/education details. Current Discharge Plan: remain in community with/without caregiver support. Anticipate discharge by 10/29/2024 RECOMMENDATION: Next visit to focus on Daily functional tasks, balance. documented in this encounter [facility] 10-06-2024 Patient's home Note SITUATION: Pt. seen for ALCAZAR Routine Visit. friend present during today's visit. patient reports the following since the last homecare visit: medications/allergies--no changes, no fall. patient reports A nurse was just here. BACKGROUND: Diagnoses or reason for Home Care: Ataxia following cerebral infarction [facility] 08/22/24 on 09/20/24 Weight Bearing or Precautions: falls ASSESSMENT: Focus of Visit Bathroom Transfers, [facility] HEP/strengthening Patient identified goals "to get back to myself" Plan of care, goals, and visit frequency reviewed and agreed upon with patient and/or caregiver. See intervention summary for intervention/education details. Current Discharge Plan: remain in community with/without caregiver support. Anticipate discharge by 10/29/2024 RECOMMENDATION: Next visit to focus on Daily functional tasks, balance. [facility] Work Phone: 10-06-2024 Miscellaneous Notes SITUATION: Longterm Discipline Discharge visit completed today. private duty caregiver also present during today's visit. patient reports the following changes since the last homecare visit: Allergies--reviewed Medications--none Falls--none BACKGROUND: Reason for Home Care: post CVA, new dx a fib ASSESSMENT: SN greeted at door by caregiver If you select Caregiver: Upon entrance patient found in chair. Patient appears in no acute distress. Patient/CG concerns verbalized today: no new concerns Vitals (see flow sheet for details): stable SN findings today: Pt sitting in recliner with private cg present. She states they have already gone for a morning walk, she has had her breakfast and feels good. Pt reports that she saw PCP yesterday and the statin was discussed but pt reports that her daughhter does not want her taking it because of the previous adverse effects. As far as she know, she is still on the eliquis and will see inspecting and testing lead hand next week to discuss the Watchman device. Apical pulse is slightly irregular, rate controlled. Pt reports that appetite is good, taking fluids well. See intervention summary for education details and any skills performed. Specific SN discharge instructions: Continue walking program, notify PCP of any concerns. Patient encouraged to take all medication as ordered, eat a well-balanced diet and follow up with all physician appointments. Additional follow ups recommended: none NOMNC: Not applicable this visit Discharged due to no further SN skilled need. RECOMMENDATION: Patient to continue with PT, OT and ST services. documented in this encounter [facility] 10-06-2024 Patient's home Note SITUATION: Longterm Discipline Discharge visit completed today. private duty caregiver also present during today's visit. patient reports the following changes since the last homecare visit: Allergies--reviewed Medications--none Falls--none BACKGROUND: Reason for Home Care: post CVA, new dx a fib ASSESSMENT: SN greeted at door by caregiver If you select Caregiver: Upon entrance patient found in chair. Patient appears in no acute distress. Patient/CG concerns verbalized today: no new concerns Vitals (see flow sheet for details): stable SN findings today: Pt sitting in recliner with private cg present. She states they have already gone for a morning walk, she has had her breakfast and feels good. Pt reports that she saw PCP yesterday and the statin was discussed but pt reports that her daughhter does not want her taking it because of the previous adverse effects. As far as she know, she is still on the eliquis and will see inspecting and testing lead hand next week to discuss the Watchman device. Apical pulse is slightly irregular, rate controlled. Pt reports that appetite is good, taking fluids well. See intervention summary for education details and any skills performed. Specific SN discharge instructions: Continue walking program, notify PCP of any concerns. Patient encouraged to take all medication as ordered, eat a well-balanced diet and follow up with all physician appointments. Additional follow ups recommended: none NOMNC: Not applicable this visit Discharged due to no further SN skilled need. RECOMMENDATION: Patient to continue with PT, OT and ST services. [facility] 10-06-2024 Telephone encounter Note This patient would benefit from continued speech therapy in the outpatient setting upon discharge from home care. I am requesting orders to be placed for outpatient speech therapy services to evaluate and treat for cognitive linguistic deficits and aphasia. The patient's daughter requested the orders be placed so that she can find them in [facility]. Thank you, Moni Rodríguez MA, CCC-SUPERVISOR OF INSTRUCTION [facility] Work Phone: 10-05-2024 Telephone encounter Note I think I would. Your vitamin D level was okay on vitamin D. That may help to prevent improved bone health. [facility] 10-05-2024 Miscellaneous Notes I think I would. Your vitamin D level was okay on vitamin D. That may help to prevent improved bone health. See Circuport message. Mara Hatch MA Good news, you may stop ferrous sulfate. Blood counts are normal. Calcium is a little elevated, will monitor for now. Everything else looks good. documented in this encounter [facility] 10-05-2024 Telephone encounter Note See Circuport message. Mara Hatch MA [facility] 10-05-2024 Progress note Formatting of t his note might be different from the original. Good news, you may stop ferrous sulfate. Blood counts are normal. Calcium is a little elevated, will monitor for now. Everything else looks good. [facility] 10-04-2024 Miscellaneous Notes SITUATION: daughter and son present during today's visit. caregiver reports the following changes since the last homecare visit: medications/allergies--None, falls--None. caregiver reports the patient is still having some issues with word finding, but her biggest issue is remembering information and remembering how to use technology such as her cell phone to make calls and/or text. This ST and the patient's daughter discussed the possibility of outpatient speech therapy. Orders are to be obtained from the patient's physician. Patient and caregiver report the patient has had her vitals taken many times today including within the last half hour by the PT. Get ST orders - put in EPIC/for my chart BACKGROUND: Diagnoses (reason for Home Care): Ataxia following cerebral infarction Objective: Patient's performance today: mod cueing to complete: cognitive linguistic skills. ASSESSMENT: Auditory comprrehension skills appear to be WFL at this time. Patient and caregiver instructed on the use of written instructions for devices the patient needs to use, digital and paper calendars for orientation, use of routines visual cues to assist the patient's memory. Patient demonstrates a need for further skilled SUPERVISOR OF INSTRUCTION services for cognitive linguistic skills and aphasia. Plan of care, progress towards goals, and visit frequency reviewed with patient and caregiver. Patient is making progress towards goals Current Discharge plan: {OP rehab program; anticipated discharge date 10/16/2024. RECOMMENDATION: Next visit to focus oncognitive linguistic skills and language skills phone work/ memory/recall See intervention summary for intervention/education details. documented in this encounter [facility] 10-04-2024 Patient's home Note SITUATION: daughter and son present during today's visit. caregiver reports the following changes since the last homecare visit: medications/allergies--None, falls--None. caregiver reports the patient is still having some issues with word finding, but her biggest issue is remembering information and remembering how to use technology such as her cell phone to make calls and/or text. This ST and the patient's daughter discussed the possibility of outpatient speech therapy. Orders are to be obtained from the patient's physician. Patient and caregiver report the patient has had her vitals taken many times today including within the last half hour by the PT. Get ST orders - put in EPIC/for my chart BACKGROUND: Diagnoses (reason for Home Care): Ataxia following cerebral infarction Objective: Patient's performance today: mod cueing to complete: cognitive linguistic skills. ASSESSMENT: Auditory comprrehension skills appear to be WFL at this time. Patient and caregiver instructed on the use of written instructions for devices the patient needs to use, digital and paper calendars for orientation, use of routines visual cues to assist the patient's memory. Patient demonstrates a need for further skilled SUPERVISOR OF INSTRUCTION services for cognitive linguistic skills and aphasia. Plan of care, progress towards goals, and visit frequency reviewed with patient and caregiver. Patient is making progress towards goals Current Discharge plan: {OP rehab program; anticipated discharge date 10/16/2024. RECOMMENDATION: Next visit to focus oncognitive linguistic skills and language skills phone work/ memory/recall See intervention summary for intervention/education details. [facility] Work Phone: 10-04-2024 Miscellaneous Notes SITUATION: daughter present during today's visit. patient and caregiver reports the following since the last homecare visit: medications/allergies--no changes, no fall. patient reports she is alittle tired today from 2 medical appointments this morning but eager for PT. BACKGROUND: Diagnoses (reason for Home Care): CVA Weight Bearing/Precaution Changes: no changes ASSESSMENT: Focus of visit performed and progressed standing strength and balance exercises w/ seated rest breaks as needed when fatigued. Short recovery needed. Gait training w/ rollator for household mobility w/ focus on increased step height Plan of care, goals, and visit frequency reviewed and agreed upon with patient and/or caregiver. Current Discharge Plan: family support Anticipate discharge by 10/12/24 RECOMMENDATION: Next visit to focus on PT to see for possble dc See intervention summary for intervention/education details. documented in this encounter [facility] 10-04-2024 Patient's home Note SITUATION: daughter present during today's visit. patient and caregiver reports the following since the last homecare visit: medications/allergies--no changes, no fall. patient reports she is alittle tired today from 2 medical appointments this morning but eager for PT. BACKGROUND: Diagnoses (reason for Home Care): CVA Weight Bearing/Precaution Changes: no changes ASSESSMENT: Focus of visit performed and progressed standing strength and balance exercises w/ seated rest breaks as needed when fatigued. Short recovery needed. Gait training w/ rollator for household mobility w/ focus on increased step height Plan of care, goals, and visit frequency reviewed and agreed upon with patient and/or caregiver. Current Discharge Plan: family support Anticipate discharge by 10/12/24 RECOMMENDATION: Next visit to focus on PT to see for possble dc See intervention summary for intervention/education details. [facility] Work Phone: 10-04-2024 Instructions Tasha Deutsch APRN.CNP - 10/04/2024 11:21 AM EDT - Continue taking Eliquis (blood thinner) exactly as prescribed. - Take vitamin D (cholecalciferol) once daily at bedtime. - Begin atorvastatin 40 mg by mouth on Friday, Friday, and Friday at 8 AM with your other morning medications; stop immediately and contact us if you develop muscle aches. - Continue home health assistance this week during daytime hours only; your home health agency will adjust the schedule as needed. - Keep up your physical therapy and speech therapy sessions twice weekly; use a small rubber exercise ball to help strengthen your hand and arm. - Walk around your [place] as you feel able, gradually increasing your distance with someone accompanying you. - Rest and nap when you feel tired to support your recovery. - Watch for any sudden confusion, changes in your speech, difficulty swallowing, or signs of a urinary infection (burning or blood in your urine) and report these promptly. - Your next cardiology appointment is on October 12 to discuss the Watchman procedure. - Labs today - Change follow up in 4 months documented in this encounter [facility] 10-04-2024 Note HNO ID: [id number] Author: TASHA DEUTSCH APRN.CNP Service: ? Author Type: Nurse Practitioner Type: Progress Notes Filed: 10/04/2024 11:22 Note Text: This is a 84 year old female who presents today with: Patient presents with: Hospital F/U HISTORY OF PRESENT ILLNESS: Behzad Hay is a 84 year old female. 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 Wanting to consider Watchman's. Went to rehab. Feeling good. Daughter here and helping her at home for now. Pt. Also concerned with previous myalgia from statin, not wanting to ever take one again. Tolerated in rehab. Willing to trial Mo-We-and Fr. Behzad Hay is an 84-year-old female with a history of CVA and AFib, accompanied by her daughter who is providing history on her behalf, presenting for follow-up after hospitalization. CVA: - Recent hospitalization for CVA. - Currently receiving speech therapy twice a week. - Reports loss of math and writing skills. - Denies headaches, diplopia, or chest pain. - No recent weight loss or gain; maintains weight at 115 lbs. - Denies fever, chills, or dyspnea. - Denies dysuria or hematuria. - Denies hopelessness, helplessness, or suicidal ideation. AFib: - Currently taking Eliquis. - Scheduled for a cardiology appointment on October 12 to discuss the Watchman procedure. Hyperlipidemia: - History of severe myalgia with statin use 5-10 years ago; advised by Dr. Harrington to avoid statins. - Discharged from the hospital with atorvastatin 40 mg daily; hesitant to restart due to previous adverse reaction. UTI: - Recent UTI during hospitalization; presented with dysarthria and confusion. PAST MEDICAL HISTORY: PAST MEDICAL HISTORY Diagnosis Date Abnormal CT of the abdomen 01/24/2014 localized perihepatic fluid indeterminate, 4mm density too small for ID, fusiforma sortic ectasia Anemia Arthritis Cerebral degeneration (HCC) Collagenous colitis Degenerative lumbar disc Dyslipidemia GERD (gastroesophageal reflux disease) H/O colonoscopy 09/23/2014 small internal hemorrhoids otherwise WNL. No further surveillance recommended Hiatal hernia History of esophagogastroduodenoscopy (EGD) 09/23/2014 [facility]: All normal HTN (hypertension) Hyperlipidemia, mixed Osteoarthritis Osteopenia PUD (peptic ulcer disease) 2014 Vitamin D deficiency PAST SURGICAL HISTORY Procedure Laterality Date BUNIONECTOMY, LAPIDUS-TYPE Left 03/30/2007 Dr. Devin LOPEZCTOMY, LAPIDUS-TYPE Right 03/30/2008 Dr. Beltran CATARACT EXTRACTION W/ INTRAOCULAR LENS IMPLANT HX Left 03/31/2003 Dr. Sosa COLONOSCOPY 09/23/[address] Addy Enriquez, [place] internal hemorrhoids, otherwise WNL COLONOSCOPY FLX DX W/COLLJ SPEC WHEN PFRMD 09/01/[address] ABDOMEN AND PELVIS W/CONT 01/24/2014 localized yan hepatic unclear etiology, inflammatory vs metastatic disease; EGD 09/23/2014 Dr. Zoe Diana Normal esophagus, z-line, stomach and duodenum ESOPHAGOGASTRODUODENOSCOPY TRANSORAL DIAGNOSTIC 09/01/2020 EYE SURGERY HX INCISE FINGER TENDON SHEATH Right 12/26/2016 Right ring trigger finger release JOINT REPLACEMENT HX LAP UMBILICAL HERNIA REPAIR 02/24/2014 Umbilical hernia repair REMOVE CATARACT, INSERT LENS,EX Right REMV CATARACT EXTRACAP,INSERT LENS Right 03/31/2003 REMV CATARACT EXTRACAP,INSERT LENS Left 02/17/2003 REVJ TOT HIP ARTHRP [facility] W/WO AGRFT/ALGRFT Right 05/30/2011 ROTATOR CUFF REPAIR Right 2013 R rotator cuff repair TONSILLECTOMY HX TONSILLECTOMY PRIMARY/SECONDARY Tonsillectomy TOTAL HIP JOINT REPLACEMENT Left 10/03/2014 ALLERGIES Adhesive Tape (Rosins), Bactrim [Sulfamethoxazole-Trimethoprim], Macrobid [Nitrofurantoin Monohyd/M-Cryst], and Xztsylm-Hea-Lmj Reductase Inhibitors MEDICATIONS Current Outpatient Medications Medication Sig MELATONIN ORAL Take by mouth. ferrous sulfate 325 mg (65 mg iron) tablet Take 1 tablet by mouth every other day. acetaminophen (TYLENOL ARTHRITIS PAIN) 650 mg CR tablet Take 650 mg by mouth once daily. Cholecalciferol, Vitamin D3, (VITAMIN D) 25 mcg (1,000 unit) cap Take 1,000 Units by mouth once daily. lisinopril (ZESTRIL) 10 mg tablet Take 10 mg by mouth two times a day. apixaban (ELIQUIS) 2.5 mg tab(s) Take 1 tablet by mouth two times a day. metoprolol tartrate, short acting, (LOPRESSOR) 25 mg tablet Take 1 tablet by mouth two times a day. cyanocobalamin, vitamin B-12, 500 mcg chew Take 1 tablet by mouth once daily. TURMERIC ORAL Take 1 tablet by mouth once daily. Patient should start on September 22, 2024. CAPSICUM, CAYENNE, ORAL Take 1 capsule by mouth once daily. Patient should start on September 22, 2024. FLAXSEED OIL ORAL Take by mouth. GARLIC ORAL Take 1 tablet by mouth once daily. Patient should start on September 22, 2024. cranberry fruit extract (CRANBERRY ORAL) (more content not included)... [facility] 10-04-2024 History of Present illness Narrative This is a 84 year old female who presents today with: Patient presents with: Hospital F/U HISTORY OF PRESENT ILLNESS: Behzad Hay is a 84 year old female. 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 Not wanting to take blood thinners jail. Fall risk. Wanting to consider Watchman's. Went to rehab. Feeling good. Daughter here and helping her at home for now. Pt. Also concerned with previous myalgia from statin, not wanting to ever take one again. Tolerated in rehab. Willing to trial Mo-We-and Fr. Behzad Hay is an 84-year-old female with a history of CVA and AFib, accompanied by her daughter who is providing history on her behalf, presenting for follow-up after hospitalization. CVA: - Recent hospitalization for CVA. - Currently receiving speech therapy twice a week. - Reports loss of math and writing skills. - Denies headaches, diplopia, or chest pain. - No recent weight loss or gain; maintains weight at 115 lbs. - Denies fever, chills, or dyspnea. - Denies dysuria or hematuria. - Denies hopelessness, helplessness, or suicidal ideation. AFib: - Currently taking Eliquis. - Scheduled for a cardiology appointment on October 12 to discuss the Watchman procedure. Hyperlipidemia: - History of severe myalgia with statin use 5-10 years ago; advised by Dr. Harrington to avoid statins. - Discharged from the hospital with atorvastatin 40 mg daily; hesitant to restart due to previous adverse reaction. UTI: - Recent UTI during hospitalization; presented with dysarthria and confusion. PAST MEDICAL HISTORY: PAST MEDICAL HISTORY Diagnosis Date Abnormal CT of the abdomen 01/24/2014 localized perihepatic fluid indeterminate, 4mm density too small for ID, fusiforma sortic ectasia Anemia Arthritis Cerebral degeneration (HCC) Collagenous colitis Degenerative lumbar disc Dyslipidemia GERD (gastroesophageal reflux disease) H/O colonoscopy 09/23/2014 small internal hemorrhoids otherwise WNL. No further surveillance recommended Hiatal hernia History of esophagogastroduodenoscopy (EGD) 09/23/2014 [facility]: All normal HTN (hypertension) Hyperlipidemia, mixed Osteoarthritis Osteopenia PUD (peptic ulcer disease) 2013 Vitamin D deficiency PAST SURGICAL HISTORY Procedure Laterality Date BUNIONECTOMY, LAPIDUS-TYPE Left 03/30/2007 Dr. Devin LOPEZCTOMY, LAPIDUS-TYPE Right 03/30/2008 Dr. Beltran CATARACT EXTRACTION W/ INTRAOCULAR LENS IMPLANT HX Left 03/31/2003 Dr. Sosa COLONOSCOPY 09/23/[address] Addy Enriquez, [place] internal hemorrhoids, otherwise WNL COLONOSCOPY FLX DX W/COLLJ SPEC WHEN PFRMD 09/01/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 Zoe Diana Normal esophagus, z-line, stomach and duodenum ESOPHAGOGASTRODUODENOSCOPY TRANSORAL DIAGNOSTIC 09/01/2020 EYE SURGERY HX INCISE FINGER TENDON SHEATH Right 12/26/2016 Right ring trigger finger release JOINT REPLACEMENT HX LAP UMBILICAL HERNIA REPAIR 02/24/2014 Umbilical hernia repair REMOVE CATARACT, INSERT LENS,EX Right REMV CATARACT EXTRACAP,INSERT LENS Right 03/31/2003 REMV CATARACT EXTRACAP,INSERT LENS Left 02/17/2003 REVJ TOT HIP ARTHRP BTH W/WO AGRFT/ALGRFT Right 05/30/2011 ROTATOR CUFF REPAIR Right 2013 R rotator cuff repair TONSILLECTOMY HX TONSILLECTOMY PRIMARY/SECONDARY <AGE 10 Tonsillectomy TOTAL HIP JOINT REPLACEMENT Left 10/03/2014 ALLERGIES Adhesive Tape (Rosins), Bactrim [Sulfamethoxazole-Trimethoprim], Macrobid [Nitrofurantoin Monohyd/M-Cryst], and Tncqokr-Lth-Jgy Reductase Inhibitors MEDICATIONS Current Outpatient Medications Medication Sig MELATONIN ORAL Take by mouth. ferrous sulfate 325 mg (65 mg iron) tablet Take 1 tablet by mouth every other day. acetaminophen (TYLENOL ARTHRITIS PAIN) 650 mg CR tablet Take 650 mg by mouth once daily. Cholecalciferol, Vitamin D3, (VITAMIN D) 25 mcg (1,000 unit) cap Take 1,000 Units by mouth once daily. lisinopril (ZESTRIL) 10 mg tablet Take 10 mg by mouth two times a day. apixaban (ELIQUIS) 2.5 mg tab(s) Take 1 tablet by mouth two times a day. metoprolol tartrate, short acting, (LOPRESSOR) 25 mg tablet Take 1 tablet by mouth two times a day. cyanocobalamin, vitamin B-12, 500 mcg chew Take 1 tablet by mouth once daily. TURMERIC ORAL Take 1 tablet by mouth once daily. Patient should start on September 22, 2024. CAPSICUM, CAYENNE, ORAL Take 1 capsule by mouth once daily. Patient should start on September 22, 2024. FLAXSEED OIL ORAL Take by mouth. GARLIC ORAL Take 1 tablet by mouth once daily. Patient should start on September 22, 2024. cranberry fruit extract (CRANBERRY ORAL) Take 650 mg by mouth once daily. LACTOBACILLUS ACIDOPHILUS (PROBIOTIC ACIDOPHILUS ORAL) Take by mouth. multivitamin ORAL tablet Take 1 tablet by mouth once daily. atorvastatin (LIPITOR) 40 mg tablet Take 1 tablet by mouth once daily. (Patient not taking: Reported on 10/04/2024) ZINC ORAL Take 50 mg by mouth once daily. (Patient not taking: Reported on 10/04/2024) estradiol (ESTRACE) 0.01 % (0.1 mg/gram) vaginal cream Apply pea-sized amount to perineum and 1 applicator vaginally Mon, Wed, Fri for atrophic vaginitis. No current facility-administered medications for this visit. FAMILY HISTORY Problem Relation Age of Onset Cancer Mother Hypertension Mother other (CVA) Mother age 86 Heart Father other (CVA) Father age 81 Ischemic Heart Disease Brother age 76 other (CVA) Brother other (ADMISSIONS COUNSELOR shunt) Brother Hypertension Sister Diabetes Sister age 66 (sepsis) Social History Tobacco Use Smoking status: Never Smokeless tobacco: Never Vaping Use Vaping status: Never Used Substance Use Topics Alcohol use: No Drug use: No REVIEW OF SYSTEMS Constitutional: (+) insomnia, (-) weight loss, (-) fever, (-) chills Head: (-) headaches Eyes: (-) double vision Cardiovascular: (-) chest pain, (-) palpitations Respiratory: (-) dyspnea, (-) cough, (-) wheezing Gastrointestinal: (-) abdominal pain, (-) anorexia Genitourinary: (-) dysuria, (-) hematuria Musculoskeletal: (+) arm weakness, (+) arm pain Neurological: (+) cognitive impairment, (+) memory loss Psychiatric: (-) suicidal ideation EXAM: BP 136/62 Pulse (!) 46 Wt 51.7 kg (114 lb) SpO2 98% BMI 20.85 kg/m PHYSICAL EXAM: GENERAL: NAD, alert and oriented. SKIN: Unremarkable, no rash or skin lesions. HEAD: Normocephalic. NECK: Supple, no lymphadenopathy, normal thyroid, no carotid bruits. LUNGS: Clear to auscultation bilaterally, no wheezes/rhonchi/rales. HEART: Regular rate and rhythm, no murmurs. No ectopy. EXTREMITIES: Normal, no deformities, no skin discoloration, no edema. Some right arm weakness. NEURO: Awake, alert and oriented x3, cranial nerves II-XII grossly intact, slow unsteady gait- uses rollator , no involuntary motions. LABS: check labs ASSESSMENT/PLAN: 1. 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 - Educated on the importance of statin therapy to reduce the risk of recurrent stroke. Discussed the benefits of atorvastatin 40 mg, including its effects on endothelial function and plaque reduction. - Advised to take atorvastatin 40 mg orally Friday, Friday, and Friday. Monitor for any signs of myalgia, particularly in the thighs or upper arms, and discontinue if symptoms occur. - Follow-up with neurologist as scheduled. 2. Paroxysmal atrial fibrillation (HCC) (I48.0) - Currently on Eliquis; discussed the potential for a Watchman procedure to reduce the need for long-term anticoagulation. - Appointment with inspecting and testing lead hand scheduled for October 12 to evaluate candidacy for Watchman procedure. - Educated on the procedure, including the need for continued anticoagulation for a period before and after the procedure. - Heart rate intentionally kept low to prevent recurrence of AFib; no current symptoms of palpitations or chest pain. 3. Recurrent UTI (urinary tract infection) (N39.0) - No current symptoms of dysuria or hematuria; last UTI occurred during hospitalization. - Advised to monitor for changes in speech or confusion as potential signs of UTI. - Continue with current hygiene practices to prevent recurrence. 4. Primary hypertension (I10) - Blood pressure currently well-controlled at 136/62 mmHg. - Continue current antihypertensive regimen, including amlodipine. - Monitor blood pressure regularly; advised to report any symptoms of hypotension such as dizziness or lightheadedness. 5. Chronic renal insufficiency, stage 3 (moderate) (HCC) (N18.30) - Renal function stable; no current symptoms of edema or electrolyte imbalance. - Continue to monitor renal function with regular lab tests. - Maintain adequate hydration and follow dietary recommendations to support kidney health. Discussed treatment plan and patient voices understanding. Patient's questions answered appropriately. Medications and potential side effects were discussed and patient voices understanding. Return to the office as scheduled or as needed for worsening/no improvement. Tasha Deutsch APRN.AVIATION ELECTRONIC WARFARE OPERATOR documented in this encounter [facility] 10-01-2024 Miscellaneous Notes SITUATION: Pt was seated in recliner upon arrival. private duty caregiver present during today's visit. patient reports the following since the last homecare visit: medications/allergies--no changes, no fall. BACKGROUND: Disciplines ordered: SN, PT, OT, ST, and PUBLIC EMPLOYMENT MEDIATOR Primary Diagnoses (reason for Home Care): Ataxia following cerebral infarction [facility] 08/22/24 on 09/20/24 ACTIVE PROBLEM LIST Trigger Ring Finger of Right Hand Injury of Extensor Tendon of Hand Spontaneous Rupture of Extensor Tendon of Left Hand Acquired Trigger Finger Chronic Renal Insufficiency, Stage 3 (Moderate) (Hcc) Vitamin D Deficiency Ddd (Degenerative Disc Disease), Cervical Primary Osteoarthritis of Right Hip Collagenous Colitis Ibs (Irritable Bowel Syndrome) Hiatal Hernia Fall From Standing Rotator Cuff Tear Arthropathy, Left Paroxysmal Atrial Fibrillation (Hcc) Primary Hypertension Acute Pain of Right Shoulder Severe Pain of Left Shoulder Cervicalgia Weight Bearing or Precautions: falls Advance Directives: Patient does have advance directives. ASSESSMENT: Pt has 24 hour assistance being provided by paid RISK ENGINEER and a son who lives locally. She has 2 dtrs who live out of town. Son is providing meals, transportation, and assists with med managment. RISK ENGINEER provide supervision and assist with I/ADL. Pt ambulates with a shuffling, unsteady gait with narrow ABEL. She is now using a rollator at all times. She has difficulty initiating transfers and at times, controlling descent. Requires VCS for hand placement during transfers (i.e. to use grab bars as opposed to faucet in shower). Pt is forgetful at times but was Alert and oriented X2 and able to answer questions apporpiately. [employer] Specials strength: L - 16.6 lbs R - 8.4 lbs PLOF: Pt was Indep with self care, transfers, and light IADL tasks. She was ambulating without device in the home, with a FWW ambulating with neightbors around the neighborhood, and cane to appointments. Family was bringing in everning meal daily. She was driving, and taking care of all med management, student financial services counselor, and making MD appointments. Social Situation: Pt was living alone in 1 level condo with no steps once inside. She has 1 step entry through the garage with a railing. She did not have any paid assistance. Barriers: Decreased balance, decreased use of R (dominant) UE D/C Plan: To remain in own home with less paid assistance and possible outpatient therapy. Patient evaluated by [facility] occupational therapy. Reviewed and explained homecare services. Plan of care, goals and visit frequency developed, reviewed, and agreed upon with patient and/or caregiver. Patient identified goals: "to get back to doing everything I was doing before". Patient will benefit from continued occupational therapy to address the following deficits functional activity including I/ADLs, UE strength/ROM and functional transfers as evidenced by score on Modified Adama Index 45/100 indicating moderate assist required for I/ADL tasks Prior to CVA, patient was Indep in all I/ADLs, though due to decreased balance, use of R (dominant) UE, UE weakness, patient has been requiring more assistance and/or more time and effort to complete I/ADL, transfers, and mobility. Without continued OT services, patient risks prolonged dependence upon caregivers for I/ADLs and potential injury leading to a longer and more difficult recovery. Current Discharge Plan:outpatient rehab. Anticipate discharge by 10/30/24 RECOMMENDATION: Plan for next visit to focus on bathroom transfers, fine motor HEP/strengthening. See intervention summary for intervention/education details. documented in this encounter [facility] 10-01-2024 Patient's home Note SITUATION: Pt was seated in recliner upon arrival. private duty caregiver present during today's visit. patient reports the following since the last homecare visit: medications/allergies--no changes, no fall. BACKGROUND: Disciplines ordered: SN, PT, OT, ST, and PUBLIC EMPLOYMENT MEDIATOR Primary Diagnoses (reason for Home Care): Ataxia following cerebral infarction [facility] 08/22/24 on 09/20/24 ACTIVE PROBLEM LIST Trigger Ring Finger of Right Hand Injury of Extensor Tendon of Hand Spontaneous Rupture of Extensor Tendon of Left Hand Acquired Trigger Finger Chronic Renal Insufficiency, Stage 3 (Moderate) (Hcc) Vitamin D Deficiency Ddd (Degenerative Disc Disease), Cervical Primary Osteoarthritis of Right Hip Collagenous Colitis Ibs (Irritable Bowel Syndrome) Hiatal Hernia Fall From Standing Rotator Cuff Tear Arthropathy, Left Paroxysmal Atrial Fibrillation (Hcc) Primary Hypertension Acute Pain of Right Shoulder Severe Pain of Left Shoulder Cervicalgia Weight Bearing or Precautions: falls Advance Directives: Patient does have advance directives. ASSESSMENT: Pt has 24 hour assistance being provided by paid RISK ENGINEER and a son who lives locally. She has 2 dtrs who live out of town. Son is providing meals, transportation, and assists with med managment. RISK ENGINEER provide supervision and assist with I/ADL. Pt ambulates with a shuffling, unsteady gait with narrow ABEL. She is now using a rollator at all times. She has difficulty initiating transfers and at times, controlling descent. Requires VCS for hand placement during transfers (i.e. to use grab bars as opposed to faucet in shower). Pt is forgetful at times but was Alert and oriented X2 and able to answer questions apporpiately. [employer] Specials strength: L - 16.6 lbs R - 8.4 lbs PLOF: Pt was Indep with self care, transfers, and light IADL tasks. She was ambulating without device in the home, with a FWW ambulating with neightbors around the neighborhood, and cane to appointments. Family was bringing in everning meal daily. She was driving, and taking care of all med management, student financial services counselor, and making MD appointments. Social Situation: Pt was living alone in 1 level condo with no steps once inside. She has 1 step entry through the garage with a railing. She did not have any paid assistance. Barriers: Decreased balance, decreased use of R (dominant) UE D/C Plan: To remain in own home with less paid assistance and possible outpatient therapy. Patient evaluated by [facility] occupational therapy. Reviewed and explained homecare services. Plan of care, goals and visit frequency developed, reviewed, and agreed upon with patient and/or caregiver. Patient identified goals: "to get back to doing everything I was doing before". Patient will benefit from continued occupational therapy to address the following deficits functional activity including I/ADLs, UE strength/ROM and functional transfers as evidenced by score on Modified Adama Index 45/100 indicating moderate assist required for I/ADL tasks Prior to CVA, patient was Indep in all I/ADLs, though due to decreased balance, use of R (dominant) UE, UE weakness, patient has been requiring more assistance and/or more time and effort to complete I/ADL, transfers, and mobility. Without continued OT services, patient risks prolonged dependence upon caregivers for I/ADLs and potential injury leading to a longer and more difficult recovery. Current Discharge Plan:outpatient rehab. Anticipate discharge by 10/30/24 RECOMMENDATION: Plan for next visit to focus on bathroom transfers, fine motor HEP/strengthening. See intervention summary for intervention/education details. [facility] Work Phone: 09-29-2024 Miscellaneous Notes SITUATION: friend present during today's visit. patient reports the following since the last homecare visit: medications/allergies--no changes, no fall. patient reports she is feeling good and is excited for therapy. BACKGROUND: Diagnoses (reason for Home Care): CVA Weight Bearing/Precaution Changes: falls ASSESSMENT: Focus of visit performed standing strength and balance exercises at sink. Patient did very well and denies pain throughout. Gait training w/ rollator for household mobility. Step training to enter/exit home through garage Plan of care, goals, and visit frequency reviewed and agreed upon with patient and/or caregiver. Current Discharge Plan: independent with home exercise program Anticipate discharge by 10/12/24 RECOMMENDATION: Next visit to focus on outdoor ambulationif weather permits See intervention summary for intervention/education details. documented in this encounter [facility] 09-29-2024 Patient's home Note SITUATION: friend present during today's visit. patient reports the following since the last homecare visit: medications/allergies--no changes, no fall. patient reports she is feeling good and is excited for therapy. BACKGROUND: Diagnoses (reason for Home Care): CVA Weight Bearing/Precaution Changes: falls ASSESSMENT: Focus of visit performed standing strength and balance exercises at sink. Patient did very well and denies pain throughout. Gait training w/ rollator for household mobility. Step training to enter/exit home through garage Plan of care, goals, and visit frequency reviewed and agreed upon with patient and/or caregiver. Current Discharge Plan: independent with home exercise program Anticipate discharge by 10/12/24 RECOMMENDATION: Next visit to focus on outdoor ambulationif weather permits See intervention summary for intervention/education details. [facility] Work Phone: 09-29-2024 Miscellaneous Notes SITUATION: private duty caregiver present during today's visit. patient and caregiver reports the following changes since the last homecare visit: medications/allergies--None, falls--None. patient and caregiver reports she was able to take a walk earlier, but now is tired. She reports her private duty caregiver tries to keep her active. BACKGROUND: Diagnoses (reason for Home Care): Ataxia following cerebral infarction Objective: Patient's performance today: min cueing to complete: cognitive linguistic skills and language skills. ASSESSMENT: Able to recall 4/4 items after a 2 day delay. Patient demonstrates a need for further skilled [employer] services for cognitive linguistic skills and language skills. Plan of care, progress towards goals, and visit frequency reviewed with patient. Patient is making progress towards goals Current Discharge plan: {family support; anticipated discharge date 10/16/24. RECOMMENDATION: Next visit to focus oncognitive linguistic skills, language skills and speech skills. See intervention summary for intervention/education details. documented in this encounter [facility] 09-29-2024 Patient's home Note SITUATION: private duty caregiver present during today's visit. patient and caregiver reports the following changes since the last homecare visit: medications/allergies--None, falls--None. patient and caregiver reports she was able to take a walk earlier, but now is tired. She reports her private duty caregiver tries to keep her active. BACKGROUND: Diagnoses (reason for Home Care): Ataxia following cerebral infarction Objective: Patient's performance today: min cueing to complete: cognitive linguistic skills and language skills. ASSESSMENT: Able to recall 4/4 items after a 2 day delay. Patient demonstrates a need for further skilled [employer] services for cognitive linguistic skills and language skills. Plan of care, progress towards goals, and visit frequency reviewed with patient. Patient is making progress towards goals Current Discharge plan: {family support; anticipated discharge date 10/16/24. RECOMMENDATION: Next visit to focus oncognitive linguistic skills, language skills and speech skills. See intervention summary for intervention/education details. [facility] Work Phone: 09-29-2024 Miscellaneous Notes SITUATION: Longterm routine visit completed today. private duty caregiver also present during today's visit. patient reports the following: Allergies--reviewed Medications--reviewed current medications Falls--None BACKGROUND: Reason for Home Care: post CVA ASSESSMENT: SN greeted at door by caregiver. Upon entrance patient found in chair Patient appears in no acute distress. Patient/CG concerns verbalized today: no new concerns Vitals (see flow sheet for details): stable SN findings today: Pt ambulating in the home using the rollator. She is with a private cg 04/11 at this time and reports that this has been going well. Cg reports thtat pt has been eating well, has been taking walks outside with cg 3 times a day and soing exercises as prescribed by therapy. Her speech is clear today and she notes that it is good in the mornings, has more trouble later on in the day. See intervention summary for education details. Patient demonstrated a need for further skilled SN services for chronic disease management & education, medication education and safety. Current Discharge plan: self-care and family support RECOMMENDATION: Next visit to focus on (be specific): CP check, how are post CVA sx progressing. documented in this encounter [facility] 09-29-2024 Patient's home Note SITUATION: Longterm routine visit completed today. private duty caregiver also present during today's visit. patient reports the following: Allergies--reviewed Medications--reviewed current medications Falls--None BACKGROUND: Reason for Home Care: post CVA ASSESSMENT: SN greeted at door by caregiver. Upon entrance patient found in chair Patient appears in no acute distress. Patient/CG concerns verbalized today: no new concerns Vitals (see flow sheet for details): stable SN findings today: Pt ambulating in the home using the rollator. She is with a private cg 04/11 at this time and reports that this has been going well. Cg reports thtat pt has been eating well, has been taking walks outside with cg 3 times a day and soing exercises as prescribed by therapy. Her speech is clear today and she notes that it is good in the mornings, has more trouble later on in the day. See intervention summary for education details. Patient demonstrated a need for further skilled SN services for chronic disease management & education, medication education and safety. Current Discharge plan: self-care and family support RECOMMENDATION: Next visit to focus on (be specific): CP check, how are post CVA sx progressing. [facility] 09-27-2024 Telephone encounter Note Noted. [facility] Work Phone: 09-27-2024 Miscellaneous Notes Noted. There has been a delay in service for Home Care OT Evaluation for this patient due to schedule conflict. Patient was notified on 09/27/24. Thank you for this referral, please contact us with any questions. Nicole Garcia documented in this encounter [facility] 09-27-2024 Telephone encounter Note There has been a delay in service for Home Care OT Evaluation for this patient due to schedule conflict. Patient was notified on 09/27/24. Thank you for this referral, please contact us with any questions. Nicole Efraíncb [facility] 09-27-2024 Miscellaneous Notes SITUATION: private duty caregiver present during today's visit. patient and caregiver reports the following changes since the last homecare visit: medications/allergies--None, falls--None. patient reports she is feeling a little tired.. BACKGROUND: Diagnoses (reason for Home Care): CVA. Pertinent referral information or other diagnoses that may affect plan of care: new a fib, new CVA. Objective: Patient's performance today: mod cueing to complete: cognitive linguistic skills and language skills. ASSESSMENT: Patient demonstrates a need for further skilled [employer] services for cognitive linguistic skills, language skills and speech skills. Plan of care, progress towards goals, and visit frequency reviewed with patient. Patient is making progress towards goals Current Discharge plan: {self-care and family support; anticipated discharge date 10/16/2024. RECOMMENDATION: Next visit to focus oncognitive linguistic skills and language skills. See intervention summary for intervention/education details. documented in this encounter [facility] 09-27-2024 Patient's home Note SITUATION: private duty caregiver present during today's visit. patient and caregiver reports the following changes since the last homecare visit: medications/allergies--None, falls--None. patient reports she is feeling a little tired.. BACKGROUND: Diagnoses (reason for Home Care): CVA. Pertinent referral information or other diagnoses that may affect plan of care: new a fib, new CVA. Objective: Patient's performance today: mod cueing to complete: cognitive linguistic skills and language skills. ASSESSMENT: Patient demonstrates a need for further skilled [employer] services for cognitive linguistic skills, language skills and speech skills. Plan of care, progress towards goals, and visit frequency reviewed with patient. Patient is making progress towards goals Current Discharge plan: {self-care and family support; anticipated discharge date 10/16/2024. RECOMMENDATION: Next visit to focus oncognitive linguistic skills and language skills. See intervention summary for intervention/education details. [facility] Work Phone: 09-25-2024 Miscellaneous Notes SITUATION: daughter present during today's visit. patient reports the following since the last homecare visit: medications/allergies--no changes, no fall. patient and caregiver reports that she is doing well but is still shuffling with the walker . BACKGROUND: Diagnoses (reason for Home Care): [facility]- then [facility] rehab 08/22/24 on 09/20/24. Ataxia following cerebral infarction ACTIVE PROBLEM LIST Trigger Ring Finger of Right Hand Injury of Extensor Tendon of Hand Spontaneous Rupture of Extensor Tendon of Left Hand Acquired Trigger Finger Chronic Renal Insufficiency, Stage 3 (Moderate) (Hcc) Vitamin D Deficiency Ddd (Degenerative Disc Disease), Cervical Primary Osteoarthritis of Right Hip Collagenous Colitis Ibs (Irritable Bowel Syndrome) Hiatal Hernia Fall From Standing Rotator Cuff Tear Arthropathy, Left Paroxysmal Atrial Fibrillation (Hcc) Primary Hypertension Acute Pain of Right Shoulder Severe Pain of Left Shoulder Cervicalgia Weight Bearing or Surgical Precautions: fall ASSESSMENT: Patient evaluated by [facility] physical therapy. Reviewed and explained homecare services. Plan of care, goals, and visit frequency developed, reviewed, and agreed upon with patient and/or caregiver. HOME- 1 story condo . No step front door, small step with grab bar to garage. Lives alone but family or pd caregivers will be providing 24/7 care for several weeks PLF: functionally indep w/o ad in the home. Would walk daily with neighbors around the complex with her RW. Cane for appts . Family reports shuffling for several years and nemerous falls in the past 3 years Patient Goal: get back to doing this stuff all by myself Patient will benefit from continued physical therapy to address the following deficits: strength, balance, gait, endurance, transfers and stair negotiation. Current Discharge Plan:independent with home exercise program. Anticipate discharge by 10/16/24 RECOMMENDATION: Next visit to focus on ther ex, developmetn of gait , transfers See intervention summary for intervention/education details. documented in this encounter [facility] 09-25-2024 Patient's home Note SITUATION: daughter present during today's visit. patient reports the following since the last homecare visit: medications/allergies--no changes, no fall. patient and caregiver reports that she is doing well but is still shuffling with the walker . BACKGROUND: Diagnoses (reason for Home Care): [facility]- then [facility] rehab 08/22/24 on 09/20/24. Ataxia following cerebral infarction ACTIVE PROBLEM LIST Trigger Ring Finger of Right Hand Injury of Extensor Tendon of Hand Spontaneous Rupture of Extensor Tendon of Left Hand Acquired Trigger Finger Chronic Renal Insufficiency, Stage 3 (Moderate) ([facility]) Vitamin D Deficiency Ddd (Degenerative Disc Disease), Cervical Primary Osteoarthritis of Right Hip Collagenous Colitis Ibs (Irritable Bowel Syndrome) Hiatal Hernia Fall From Standing Rotator Cuff Tear Arthropathy, Left Paroxysmal Atrial Fibrillation (Hcc) Primary Hypertension Acute Pain of Right Shoulder Severe Pain of Left Shoulder Cervicalgia Weight Bearing or Surgical Precautions: fall ASSESSMENT: Patient evaluated by [facility] physical therapy. Reviewed and explained homecare services. Plan of care, goals, and visit frequency developed, reviewed, and agreed upon with patient and/or caregiver. HOME- 1 story condo . No step front door, small step with grab bar to garage. Lives alone but family or pd caregivers will be providing 24/7 care for several weeks PLF: functionally indep w/o ad in the home. Would walk daily with neighbors around the complex with her RW. Cane for appts . Family reports shuffling for several years and nemerous falls in the past 3 years Patient Goal: get back to doing this stuff all by myself Patient will benefit from continued physical therapy to address the following deficits: strength, balance, gait, endurance, transfers and stair negotiation. Current Discharge Plan:independent with home exercise program. Anticipate discharge by 10/16/24 RECOMMENDATION: Next visit to focus on ther ex, developmetn of gait , transfers See intervention summary for intervention/education details. [facility] Work Phone: 09-24-2024 Telephone encounter Note Patient was admitted to [facility] on August 22, 2024 and discharged September 19, 2024 with a stroke. 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 Diastolic function is indeterminate. Left atrium is mildly enlarged. Mild focal mitral valve calcification of the posterior leaflet Mildly calcified aortic valve with aortic valve sclerosis no stenosis Mildly calcified aortic root Patient has a history of chronic renal failure with a history of atrial fibrillation refused anticoagulation in the past, osteoarthritis, declining memory, hypertension, who presented to the emergency room August 16 with complaints of confusion. She had previous episodes of confusion but the family felt this was worse. In the emergency room her NIH was 0 and she was awake and alert answering questions following commands. Initial blood pressure was elevated at 164/104. A noncontrast brain CT showed no acute intracranial abnormality but did show chronic age-related microvascular ischemic changes. Chest x-ray no acute findings EKG showed atrial fibrillation with a rate of 100. Workup for infection was negative. She was discharged home and follow-up with primary care provider. She returned on August 18, 2024 with continued confusion and weakness in the right arm and leg. CTA of the head and neck that date was suspicious for acute infarct along the high left parietal lobe with hypodensity in the left caudate nucleus possible secondary to remote lacunar infarct. 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 MRI confirmed the acute infarct in the left frontal parietal lobe compatible with MCA distribution. She was admitted to the hospital service. LDL was 112, TSH 1.6. She was started on high intensity statin with Lipitor 40 mg at bedtime. Transthoracic echocardiogram showed left ventricular ejection fraction of 65% and mild left atrial enlargement. There is no significant valvular heart disease and diastolic function was indeterminate. Telemetry neurologist recommended aspirin and Plavix for 3 weeks and then discontinue Plavix using aspirin alone. 30-day event monitor was recommended however she had a history of paroxysmal atrial fibs and had paroxysmal atrial fibs while in thehospital on telemetry. She was started on Eliquis and antiplatelet agents were discontinued. Behzad was discharged to acute inpatient rehab August 22. Patient was mildly anemic upon arrival to rehab. Hemoccult stool positive. Her daughter was able to locate her last colonoscopy and she had only internal and external hemorrhoids. Denied any nausea vomiting or gastric pain. Eliquis continued. Hemoglobin remained stable. Discharged from rehab hemoglobin 11.1. During rehab she had 2 episodes of acute cystitis both E. coli. Both treated with cephalosporin and resolved. Behzad stay on rehab with otherwise unremarkable and she made good progress. DME discharge included 3-1 commode and rollator walker. WBC 5.6, hemoglobin 11.1, hematocrit 34.5, platelet count 249 Sodium 140, potassium 4.3, BUN 19, creatinine 0.98, glucose 101 [facility] 09-24-2024 Miscellaneous Notes Patient was admitted to [facility] on August 22, 2024 and discharged September 19, 2024 with a stroke. 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 Diastolic function is indeterminate. Left atrium is mildly enlarged. Mild focal mitral valve calcification of the posterior leaflet Mildly calcified aortic valve with aortic valve sclerosis no stenosis Mildly calcified aortic root Patient has a history of chronic renal failure with a history of atrial fibrillation refused anticoagulation in the past, osteoarthritis, declining memory, hypertension, who presented to the emergency room May 5 with complaints of confusion. She had previous episodes of confusion but the family felt this was worse. In the emergency room her NIH was 0 and she was awake and alert answering questions following commands. Initial blood pressure was elevated at 164/104. A noncontrast brain CT showed no acute intracranial abnormality but did show chronic age-related microvascular ischemic changes. Chest x-ray no acute findings EKG showed atrial fibrillation with a rate of 100. Workup for infection was negative. She was discharged home and follow-up with primary care provider. She returned on August 18, 2024 with continued confusion and weakness in the right arm and leg. CTA of the head and neck that date was suspicious for acute infarct along the high left parietal lobe with hypodensity in the left caudate nucleus possible secondary to remote lacunar infarct. 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 MRI confirmed the acute infarct in the left frontal parietal lobe compatible with MCA distribution. She was admitted to the hospital service. LDL was 112, TSH 1.6. She was started on high intensity statin with Lipitor 40 mg at bedtime. Transthoracic echocardiogram showed left ventricular ejection fraction of 65% and mild left atrial enlargement. There is no significant valvular heart disease and diastolic function was indeterminate. Telemetry neurologist recommended aspirin and Plavix for 3 weeks and then discontinue Plavix using aspirin alone. 30-day event monitor was recommended however she had a history of paroxysmal atrial fibs and had paroxysmal atrial fibs while in thehospital on telemetry. She was started on Eliquis and antiplatelet agents were discontinued. Behzad was discharged to acute inpatient rehab August 22. Patient was mildly anemic upon arrival to rehab. Hemoccult stool positive. Her daughter was able to locate her last colonoscopy and she had only internal and external hemorrhoids. Denied any nausea vomiting or gastric pain. Eliquis continued. Hemoglobin remained stable. Discharged from rehab hemoglobin 11.1. During rehab she had 2 episodes of acute cystitis both E. coli. Both treated with cephalosporin and resolved. Behzad stay on rehab with otherwise unremarkable and she made good progress. DME discharge included 3-1 commode and rollator walker. WBC 5.6, hemoglobin 11.1, hematocrit 34.5, platelet count 249 Sodium 140, potassium 4.3, BUN 19, creatinine 0.98, glucose 101 documented in this encounter [facility] 09-23-2024 Miscellaneous Notes SITUATION: only patient and daughter present during today's visit. patient reports the following changes since the last homecare visit: medications/allergies--None, falls--None. patient reports no acute pain. BACKGROUND: Diagnoses (reason for Home Care): Ataxia following cerebral infarction Prior level of function: moslty independent Diet at current time: regular/thin Patient stated goal: be able to speak normal Objective: Patient presents with:aphasia, apraxia, cognitive linguistic deficits and short term memory deficits (see assessment for full details). ASSESSMENT: Patient demonstrated a need for further skilled ST services for instruction and education related to cognitive linguistic skills, language skills and speech skills. Plan of care, progress towards goals, and visit frequency reviewed/developed (agreement) with patient and caregiver. Current Discharge plan: self-care and family support anticipated discharge date 10/16/24. RECOMMENDATION: Recommend speech therapy intervention 1w1, then 2w3 to focus on cognitive linguistic skills, language skills and speech skills. See intervention summary for intervention/education details. documented in this encounter [facility] 09-23-2024 Patient's home Note SITUATION: only patient and daughter present during today's visit. patient reports the following changes since the last homecare visit: medications/allergies--None, falls--None. patient reports no acute pain. BACKGROUND: Diagnoses (reason for Home Care): Ataxia following cerebral infarction Prior level of function: moslty independent Diet at current time: regular/thin Patient stated goal: be able to speak normal Objective: Patient presents with:aphasia, apraxia, cognitive linguistic deficits and short term memory deficits (see assessment for full details). ASSESSMENT: Patient demonstrated a need for further skilled ST services for instruction and education related to cognitive linguistic skills, language skills and speech skills. Plan of care, progress towards goals, and visit frequency reviewed/developed (agreement) with patient and caregiver. Current Discharge plan: self-care and family support anticipated discharge date 10/16/24. RECOMMENDATION: Recommend speech therapy intervention 1w1, then 2w3 to focus on cognitive linguistic skills, language skills and speech skills. See intervention summary for intervention/education details. [facility] Work Phone: 09-23-2024 Telephone encounter Note 09/23/24 MECHANICAL PRODUCT DESIGN ENGINEER called the pt.'s daughter Aditi Carvalho regarding community resources for the pt. The pt.'s daughter stated that she lives in [place] but her brother the pt.'s son lives close to the pt. She stated that she has been staying with the pt. and that they have hired Aide(s) from [employer] to stay next week with the pt. 24 hrs a day. The pt.'s daughter stated that the pt. was doing ok at night and they will see how the pt. is doing after next week. MECHANICAL PRODUCT DESIGN ENGINEER asked about the pt. being and if her was a . The pt.'s daughter stated the pt.'s was not a . The pt.'s daughter stated they were looking for a private Aide not through an Agency. MECHANICAL PRODUCT DESIGN ENGINEER discussed [employer] and the pt.'s daughter stated her [id number] was looking on [employer]. She stated her [id number]-tg-ugy had a in her family. MECHANICAL PRODUCT DESIGN ENGINEER asked the pt.'s daughter if the pt. belonged to a jainism and possibly asking the jainism of anyone. The pt.'s daughter stated the pt. does belong to a jainism. MECHANICAL PRODUCT DESIGN ENGINEER discussed [facility] for PASSPORT. The pt.'s daughter was aware of [employer] and stated the pt. did not meet financial guidelines for Medicaid. MECHANICAL PRODUCT DESIGN ENGINEER asked the pt.'s daughter if the pt. owns her home and educated on Estate Recovery on [employer]. MECHANICAL PRODUCT DESIGN ENGINEER asked about transportation and family is able to get the pt. to appointments. MECHANICAL PRODUCT DESIGN ENGINEER discussed Home Delivered Meal providers and the Aides will make the pt.'s meals. MECHANICAL PRODUCT DESIGN ENGINEER asked the pt.'s daughter if the pt. had an ER Medical Alert and she stated they were going to look into this. MECHANICAL PRODUCT DESIGN ENGINEER educated on getting an ER Medical Alert through [facility]. The pt.'s daughter wanted MECHANICAL PRODUCT DESIGN ENGINEER to Email her information on ER Medical Alert providers. Her Email: [email or web address] The pt.'s daughter stated she just wanted to know about community resources and she feels they are managing the pt.'s care and the pt. having the hired Aide starting next week. MECHANICAL PRODUCT DESIGN ENGINEER provided the pt.'s daughter with her name and phone number. 09/23/24 MECHANICAL PRODUCT DESIGN ENGINEER Emailed the pt.'s daughter information on getting an ER Medical Alert through [facility] and other ER Medical Alerts and website for [employer] [place] on Aging. Thank You, [facility] Work Phone: 09-23-2024 Miscellaneous Notes 09/23/24 MECHANICAL PRODUCT DESIGN ENGINEER called the pt.'s daughter Aditi Carvalho regarding community resources for the pt. The pt.'s daughter stated that she lives in [place] but her brother the pt.'s son lives close to the pt. She stated that she has been staying with the pt. and that they have hired Aide(s) from [facility] to stay next week with the pt. 24 hrs a day. The pt.'s daughter stated that the pt. was doing ok at night and they will see how the pt. is doing after next week. MECHANICAL PRODUCT DESIGN ENGINEER asked about the pt. being and if her was a [place]. The pt.'s daughter stated the pt.'s was not a . The pt.'s daughter stated they were looking for a private Aide not through an Agency. MECHANICAL PRODUCT DESIGN ENGINEER discussed [employer] and the pt.'s daughter stated her [id number]-ekn was looking on [employer]. She stated her tapmcz-cj-qmt had a in her family. MECHANICAL PRODUCT DESIGN ENGINEER asked the pt.'s daughter if the pt. belonged to a jainism and possibly asking the jainism of anyone. The pt.'s daughter stated the pt. does belong to a jainism. MECHANICAL PRODUCT DESIGN ENGINEER discussed [facility] for PASSPORT. The pt.'s daughter was aware of [employer] and stated the pt. did not meet financial guidelines for Medicaid. MECHANICAL PRODUCT DESIGN ENGINEER asked the pt.'s daughter if the pt. owns her home and educated on Estate Recovery on [employer]. MECHANICAL PRODUCT DESIGN ENGINEER asked about transportation and family is able to get the pt. to appointments. MECHANICAL PRODUCT DESIGN ENGINEER discussed Home Delivered Meal providers and the Aides will make the pt.'s meals. MECHANICAL PRODUCT DESIGN ENGINEER asked the pt.'s daughter if the pt. had an ER Medical Alert and she stated they were going to look into this. MECHANICAL PRODUCT DESIGN ENGINEER educated on getting an ER Medical Alert through [facility]. The pt.'s daughter wanted MECHANICAL PRODUCT DESIGN ENGINEER to Email her information on ER Medical Alert providers. Her Email: [email or web address] The pt.'s daughter stated she just wanted to know about community resources and she feels they are managing the pt.'s care and the pt. having the hired Aide starting next week. MECHANICAL PRODUCT DESIGN ENGINEER provided the pt.'s daughter with her name and phone number. 09/23/24 MECHANICAL PRODUCT DESIGN ENGINEER Emailed the pt.'s daughter information on getting an ER Medical Alert through [facility] and other ER Medical Alerts and website for [employer] [place] on Aging. Thank You, documented in this encounter [facility] 09-23-2024 Miscellaneous Notes 09/23/24 12:14 PM - 12:21 PM MECHANICAL PRODUCT DESIGN ENGINEER called the pt.'s daughter Aditi Carvalho regarding community resources for the pt. The pt.'s daughter stated that she lives in [place] but her brother the pt.'s son lives close to the pt. She stated that she has been staying with the pt. and that they have hired Aide(s) from [facility] to stay next week with the pt. 24 hrs a day. The pt.'s daughter stated that the pt. was doing ok at night and they will see how the pt. is doing after next week. MECHANICAL PRODUCT DESIGN ENGINEER asked about the pt. being and if her was a . The pt.'s daughter stated the pt.'s was not a [place]. The pt.'s daughter stated they were looking for a private Aide not through an Agency. MECHANICAL PRODUCT DESIGN ENGINEER discussed [employer] and the pt.'s daughter stated her uzdtgz-ex-hmx was looking on [employer]. She stated her behvvr-up-qre had a in her family. MECHANICAL PRODUCT DESIGN ENGINEER asked the pt.'s daughter if the pt. belonged to a jainism and possibly asking the jainism of anyone. The pt.'s daughter stated the pt. does belong to a jainism. MECHANICAL PRODUCT DESIGN ENGINEER discussed [facility] for PASSPORT. The pt.'s daughter was aware of [employer] and stated the pt. did not meet financial guidelines for Medicaid. MECHANICAL PRODUCT DESIGN ENGINEER asked the pt.'s daughter if the pt. owns her home and educated on Estate Recovery on [employer]. MECHANICAL PRODUCT DESIGN ENGINEER asked about transportation and family is able to get the pt. to appointments. MECHANICAL PRODUCT DESIGN ENGINEER discussed Home Delivered Meal providers and the Aides will make the pt.'s meals. MECHANICAL PRODUCT DESIGN ENGINEER asked the pt.'s daughter if the pt. had an ER Medical Alert and she stated they were going to look into this. MECHANICAL PRODUCT DESIGN ENGINEER educated on getting an ER Medical Alert through [facility]. The pt.'s daughter wanted MECHANICAL PRODUCT DESIGN ENGINEER to Email her information on ER Medical Alert providers. Her Email: [email or web address] The pt.'s daughter stated she just wanted to know about community resources and she feels they are managing the pt.'s care and the pt. having the hired Aide starting next week. MECHANICAL PRODUCT DESIGN ENGINEER provided the pt.'s daughter with her name and phone number. 09/23/24 12:40 PM MECHANICAL PRODUCT DESIGN ENGINEER Emailed the pt.'s daughter information on getting an ER Medical Alert through [facility] and other ER Medical Alerts and website for [employer] [place] on Aging. 09/23/24 MECHANICAL PRODUCT DESIGN ENGINEER messaged Tasha Deutsch APRN.NICO - MECHANICAL PRODUCT DESIGN ENGINEER phone call with the pt.'s daughter Aditi Carvalho and that MECHANICAL PRODUCT DESIGN ENGINEER Emailed the pt.'s daughter information on getting an ER Medical Alert through [facility] and other ER Medical Alerts and website for [employer] [place] on Aging. documented in this encounter [facility] 09-23-2024 Patient's home Note 09/23/24 12:14 PM - 12:21 PM MECHANICAL PRODUCT DESIGN ENGINEER called the pt.'s daughter Aditi Carvalho regarding community resources for the pt. The pt.'s daughter stated that she lives in [place] but her brother the pt.'s son lives close to the pt. She stated that she has been staying with the pt. and that they have hired Aide(s) from [facility] to stay next week with the pt. 24 hrs a day. The pt.'s daughter stated that the pt. was doing ok at night and they will see how the pt. is doing after next week. MECHANICAL PRODUCT DESIGN ENGINEER asked about the pt. being and if her was a [place]. The pt.'s daughter stated the pt.'s was not a [place]. The pt.'s daughter stated they were looking for a private Aide not through an Agency. MECHANICAL PRODUCT DESIGN ENGINEER discussed [employer] and the pt.'s daughter stated her qbwqit-pd-xbm was looking on [employer]. She stated her hjlpga-sr-dzz had a in her family. MECHANICAL PRODUCT DESIGN ENGINEER asked the pt.'s daughter if the pt. belonged to a jainism and possibly asking the jainism of anyone. The pt.'s daughter stated the pt. does belong to a jainism. MECHANICAL PRODUCT DESIGN ENGINEER discussed [facility] for PASSPORT. The pt.'s daughter was aware of [employer] and stated the pt. did not meet financial guidelines for Medicaid. MECHANICAL PRODUCT DESIGN ENGINEER asked the pt.'s daughter if the pt. owns her home and educated on Estate Recovery on [employer]. MECHANICAL PRODUCT DESIGN ENGINEER asked about transportation and family is able to get the pt. to appointments. MECHANICAL PRODUCT DESIGN ENGINEER discussed Home Delivered Meal providers and the Aides will make the pt.'s meals. MECHANICAL PRODUCT DESIGN ENGINEER asked the pt.'s daughter if the pt. had an ER Medical Alert and she stated they were going to look into this. MECHANICAL PRODUCT DESIGN ENGINEER educated on getting an ER Medical Alert through [facility]. The pt.'s daughter wanted MECHANICAL PRODUCT DESIGN ENGINEER to Email her information on ER Medical Alert providers. Her Email: [email or web address] The pt.'s daughter stated she just wanted to know about community resources and she feels they are managing the pt.'s care and the pt. having the hired Aide starting next week. MECHANICAL PRODUCT DESIGN ENGINEER provided the pt.'s daughter with her name and phone number. 09/23/24 12:40 PM MECHANICAL PRODUCT DESIGN ENGINEER Emailed the pt.'s daughter information on getting an ER Medical Alert through [facility] and other ER Medical Alerts and website for [employer] [place] on Aging. 09/23/24 MECHANICAL PRODUCT DESIGN ENGINEER messaged Tasha Deutsch APRN.AVIATION ELECTRONIC WARFARE OPERATOR - MECHANICAL PRODUCT DESIGN ENGINEER phone call with the pt.'s daughter Aditi Carvalho and that MECHANICAL PRODUCT DESIGN ENGINEER Emailed the pt.'s daughter information on getting an ER Medical Alert through [facility] and other ER Medical Alerts and website for [employer] [place] on Aging. [facility] Work Phone: 09-23-2024 Miscellaneous Notes 09/23/24 11:03 AM - 11:04 AM MECHANICAL PRODUCT DESIGN ENGINEER called the pt.'s daughter Aditi Carvalho and she stated that she was on another call and asked MECHANICAL PRODUCT DESIGN ENGINEER to call her back around noon. documented in this encounter [facility] 09-23-2024 Patient's home Note 09/23/24 11:03 AM - 11:04 AM MECHANICAL PRODUCT DESIGN ENGINEER called the pt.'s daughter Aditi Carvalho and she stated that she was on another call and asked MECHANICAL PRODUCT DESIGN ENGINEER to call her back around noon. [facility] Work Phone: 09-22-2024 Miscellaneous Notes SITUATION: Longterm SOC visit completed today. daughter also present during today's visit. patient reports the following: Allergies--reviewed Medications--full medication reconciliation completed Falls--None DME-Reviewed and added to chart Advance Directives: Patient does have advance directives. BACKGROUND: Discharged/Referral from acute [facility] on 09/19/24 following treatment for CVA. Pertinent referral information or other diagnoses that may affect plan of care: new a fib, new CVA. ASSESSMENT: SN greeted at door by caregiver. Upon entrance patient found ambulating back to living room Patient appears in no acute distress. Patient lives at home See SN assesment. Home environment: clean and uncluttered. SOC booklet reviewed & completed with patient and caregiver and consent obtained for Home Care services. Pt was not able to sign consent due to she knows and can spell her name but cannot write it out. Daughter signed consent. Patient/CG concerns verbalized today: see SN findings Vitals (see flow sheet for details): stable SN findings today: Pt was sitting in her driveway with daughter and neighbor upon SN arrival. She ambulated back to the home with rollator walker and SB daughter assist. She sat in a soft chair for this assessment. Pt reports that she was independent prior to this illness and daughter adds that it is felt that she had a TIA the day before hosp admit and then a CVA was confirmed thereafter; pt/cg relate that the medicine that she needed to avoid all of this was not able to be given because of lack of evidence of an actual CVA her first trip to the ED and then with the second ED trip; too much time had taken place. Pt's main complaint is of R sided weakness and expressive aphasia. She feels that she is able to think clearly but is not able to get her words out correctly at times. This SN notes that pt has effective communication but struggles at time for word choices and did have trouble with cognitive test but overall; pt appears safety aware and wants to return to her independence. New dx of a fib. Pt reports that she has not felt any difference in her heart. SN notes that HR is irregular today but rate is WNL. Pt is new to metoprolol and lisinpril dose has been decreased. BP is in WNL today. Pt has a follow up appt scheduled with [facility] and cg plans to discuss a Watchman device as she is not very comfortable with the blood thinner. It is also noted that pt was previously on Atorvastatin but this was over 10 years ago and was d/c'd due to severe leg pain and it is noted on her allergy list. Pt does not have the med in the home and does not plan to pursue this. It is noted by this is noted as a "continued" med. SN to follow up with PCP. Pt's main need will be for OT, SUPERVISOR OF INSTRUCTION and PT. Pt was not using the rollator in the home and was preparing her own meals, bathing and dressing self etc. Pt now needs assistance with all of this. She is capable of participating but needs assist and superision for saftey due to significanlty elevated fall risk (R sided weakness and expressive aphasia). Daughter, Aditi has arranged to be with her mom through this week and has already contacted [facility] and has 24/7 care set up for her for 1-2 weeks starting 09/25. She will then evaluate and adjust hours as needed. She plans to return to [place] this weekend. Aditi is agrreable to a TC from [facility] to offer any further community resources but does not feel a vs from [facility] is necessary. Pt also has a son that lives in [place] and will be assisting with transportation to medical care. Pt lives in a one story condo type home that is very clean and uncluttered. She has 2 bathrooms and the one that she uses for toileting is set up with a BSC frame on top of the toilet but the shower is a tub/shower. Daughter did purchase a shower bench but feels that it would be safer for pt to shower in the "guest bath" which has a lower step to get in shower. Both have hand held attachments. SN agrees that the "guest" bath would be better for showers but asks OT to recommend appropriate grab bars for shower transfers. See intervention summary for education details and skills performed. Plan of care and visit frequency established with patient and caregiver and plan of care agreed upon. Patient demonstrated a need for further skilled SN services for chronic disease management & education, medication education and safety. RECOMMENDATION: Visit Frequency: 1 wk 4 Need for additional services: Patient agreeable to PT, OT, ST and PUBLIC EMPLOYMENT MEDIATOR referrals. Patient declined N/A referrals. Additional concerns to be followed up on: NONE Next visit to focus on (be specific): BP check, ?improvement in mobility, speech and R sided function? documented in this encounter [facility] 09-22-2024 Patient's home Note SITUATION: Longterm SOC visit completed today. daughter also present during today's visit. patient reports the following: Allergies--reviewed Medications--full medication reconciliation completed Falls--None DME-Reviewed and added to chart Advance Directives: Patient does have advance directives. BACKGROUND: [facility] following treatment for CVA. Pertinent referral information or other diagnoses that may affect plan of care: new a fib, new CVA. ASSESSMENT: SN greeted at door by caregiver. Upon entrance patient found ambulating back to living room Patient appears in no acute distress. Patient lives at home See SN assesment. Home environment: clean and uncluttered. SOC booklet reviewed & completed with patient and caregiver and consent obtained for Home Care services. Pt was not able to sign consent due to she knows and can spell her name but cannot write it out. Daughter signed consent. Patient/CG concerns verbalized today: see SN findings Vitals (see flow sheet for details): stable SN findings today: Pt was sitting in her driveway with daughter and neighbor upon SN arrival. She ambulated back to the home with rollator walker and SB daughter assist. She sat in a soft chair for this assessment. Pt reports that she was independent prior to this illness and daughter adds that it is felt that she had a TIA the day before hosp admit and then a CVA was confirmed thereafter; pt/cg relate that the medicine that she needed to avoid all of this was not able to be given because of lack of evidence of an actual CVA her first trip to the ED and then with the second ED trip; too much time had taken place. Pt's main complaint is of R sided weakness and expressive aphasia. She feels that she is able to think clearly but is not able to get her words out correctly at times. This SN notes that pt has effective communication but struggles at time for word choices and did have trouble with cognitive test but overall; pt appears safety aware and wants to return to her independence. New dx of a fib. Pt reports that she has not felt any difference in her heart. SN notes that HR is irregular today but rate is WNL. Pt is new to metoprolol and lisinpril dose has been decreased. BP is in WNL today. Pt has a follow up appt scheduled with [facility] and cg plans to discuss a Watchman device as she is not very comfortable with the blood thinner. It is also noted that pt was previously on Atorvastatin but this was over 10 years ago and was d/c'd due to severe leg pain and it is noted on her allergy list. Pt does not have the med in the home and does not plan to pursue this. It is noted by this is noted as a "continued" med. SN to follow up with PCP. Pt's main need will be for OT, SUPERVISOR OF INSTRUCTION and PT. Pt was not using the rollator in the home and was preparing her own meals, bathing and dressing self etc. Pt now needs assistance with all of this. She is capable of participating but needs assist and superision for saftey due to significanlty elevated fall risk (R sided weakness and expressive aphasia). Daughter, Aditi has arranged to be with her mom through this week and has already contacted [facility] and has 24/7 care set up for her for 1-2 weeks starting 09/25. She will then evaluate and adjust hours as needed. She plans to return to [place] this weekend. Aditi is agrreable to a TC from [facility] to offer any further community resources but does not feel a vs from [facility] is necessary. Pt also has a son that lives in [place] and will be assisting with transportation to medical care. Pt lives in a one story condo type home that is very clean and uncluttered. She has 2 bathrooms and the one that she uses for toileting is set up with a BSC frame on top of the toilet but the shower is a tub/shower. Daughter did purchase a shower bench but feels that it would be safer for pt to shower in the "guest bath" which has a lower step to get in shower. Both have hand held attachments. SN agrees that the "guest" bath would be better for showers but asks OT to recommend appropriate grab bars for shower transfers. See intervention summary for education details and skills performed. Plan of care and visit frequency established with patient and caregiver and plan of care agreed upon. Patient demonstrated a need for further skilled SN services for chronic disease management & education, medication education and safety. RECOMMENDATION: Visit Frequency: 1 wk 4 Need for additional services: Patient agreeable to PT, OT, ST and PUBLIC EMPLOYMENT MEDIATOR referrals. Patient declined N/A referrals. Additional concerns to be followed up on: NONE Next visit to focus on (be specific): BP check, ?improvement in mobility, speech and R sided function? [facility] 09-21-2024 Telephone encounter Note Patient daughter called in asking for status of her appointment date and time. [facility] Work Phone: 09-21-2024 Miscellaneous Notes Patient daughter called in asking for status of her appointment date and time. documented in this encounter [facility] 09-18-2024 Discharge summary Note Date/Time September 18, 2024 11:46am [facility] Medical Records Department [address] [place] [address] Instructions for Home/Discharge Instructions 09/17/24 0804 MR#: [id number] Acct: [id number] Name: BEHZAD HAY Rep #:[id number] : 1940 84 From: Behzad Dorado DO PCP: Tasha Deutsch, OUTREACH COORDINATOR Status:ADM IN Discharge Instructions DC O2, CPAP, BIPAP needs Home O2 Discharge instructions: No Dressing / Incision Discharge Activity: May Not Drive, May Shower and Use Walker Weight Bearing Status: Full weight bearing Dressing / Incision Call your doctor if you observe: Fever of 101 or Higher, Inability to urinate, Inability to have a bowel movement, Shortness of breath, Dizziness, Fainting spells, Swelling in the ankles, Chest pain, Increased palpitations (irregular heartbeat), Calf discomfort, Uncontrolled pain and - (STROKE symptoms: facial droop, slurred speech, inability to get words out, weakness on 1 side of the body and not the other, numbness on 1 side of the body and not the other, inability to maintain your balance sitting or standing, vertigo. ) Follow Up Care When: Appts have been scheduled for you with neurology, cardiology and with yourP. They are listed later in this document. Test Results: Test results from this visit will be discussed in further detail at your follow-up appointment, if applicable. Pending Tests Upon Discharge: none Discharge Plan Admission Admit Date/Time: 08/22/24 13:55 Primary Reason for Your Visit: POST STROKE DEBILITY Attending Provider: Behzad Dorado Primary Care Provider: Tasha Deutsch Instructions Patient Instructions: Urinary Tract Infections in Women, Discharge Instructionsfor Stroke, AFib Preventing Stroke, ED Cystitis Female Adult Additional Instructions / Restrictions: 1. Your BP is well controlled at the time of Discharge from rehab. the goal forBP in a pt of your age with a stroke is to keep the BP under 140/80. Your BP isnot too low. Signs that the BP may be too low are dizziness, alex with standing), feeling like you are going to pass out, actually passing out when standing, shortness of breath with exertion, racing heart, sweating when you arestanding and sometimes nausea with standing for a prolonged period of time. 2. You are sleeping well at night and you have a good appetite. 3. Your lab 1 day prior to discharge from rehab looks very good. You are a little anemic. Your stool does have some blood in it and this is not unusual when your are taking an anticoagulant (blood thinner). You are on and anticoagulant called Eliquis (also called Apixaban). This is to help prevent additional strokes going forward since you have Atrial fibrillation (also calledAFIB). This is a problem with the rhythm of the heart and it causes little clots to form in the heart which can then get squeezed out of the heart and go to the brain causing a stroke. You have been diagnosed with internal and external hemorrhoids in the past and I suspect this is why you have blood in thestool. Many people who are on anticoagulants have blood in the stool intermittently. Chronic blood loss can lead to iron deficiency and worsening anemia. I have placed you on an iron supplement which you will take every otherday. Iron supplements can cause constipation and it can make your stool look very dark or black. If you are having a problem with constipation you may want to start Metamucil or Miralax to help keep the stool soft. 4. You have had 2 urinary tract infections while on rehab. Both were caused bya bacteria called E. Coli. This bacteria lives in everyone's colon and it is a frequent cause of urinary tract infection, alex in women. Hygiene after a BM is very important. Make sure to wipe from the front to the back after a BM. Your family is looking into getting a bidet to attach to your toilet and this will bevery helpful in maintaining good hygiene. Until you get a bidet it would be a good idea to use baby wipes to clean yourself after a BM. In older people the symptoms of a urinary tract infection (UTI) are different than in younger women. As you age you frequently will not have a fever or chills with infection. You may not have burning with urination and this makes it difficult to diagnose. Ifyou have a change in mental status (more confused), new urinary incontinence, increased frequency of urination or nausea you may have a UTI. If you have any of these symptoms call your PCP for advice. They may want to check your urine. As you age you can also have bacteria in the urine even if you do not have a UTI. If you are totally asymptomatic then you probably would not need an antibiotic. 5. If you are having nose bleeds, coughing up blood, have blood in your urine, are having loose stools that are black or maroon colored then you should call your PCP for advice. Also call for sudden onset of severe headache, alex if you have fallen recently. 6. You have made great progress on rehab. You will need continued therapy after Discharge from rehab. Strokes often affect thought processing and you have had a lot of confusion BUT, you are improving with speech therapy. We do not feel you will be safe alone at the time of discharge from rehab and are recommending that you have 24/7 supervision until the speech therapist feels youare able to manage alone for a short time by yourself. I recommend you sign up for a service to provide you with a device you can activate if you fall or have an emergency that you need help with. The delinquency prevention social worker gave your family information about this. 7. It has been a pleasure having you on rehab. You are always so pleasant and ready to work with therapy and we have all enjoyed watching you get better and better. If you or your family have any questions after you leave rehab please do not hesitate to call me. OFFICE: [phone] CELL: [phone] NURSES STATION ON REHAB: [phone] Discharge Orders/Prescriptions Prescriptions: New cephalexin 500 mg Capsule 500 mg PO Q8 Qty: 5 0RF Rx Instructions: You will only need 5 more doses of this antibiotic once you get home and thenyou can stop. ferrous sulfate [FeroSul] 325 mg (65 mg iron) Tablet 325 mg PO Q48H Qty: 30 0RF lisinopril 10 mg Tablet 10 mg PO BID Qty: 60 0RF metoprolol tartrate 25 mg Tablet 25 mg PO BID Qty: 60 0RF cholecalciferol (vitamin D3) 25 mcg (1,000 unit) Tablet 25 mcg PO DAILY Qty: 30 0RF apixaban 2.5 mg tablet 2.5 mg PO BID Qty: 60 0RF Continued multivitamin [Daily Multi-Vitamin] Tablet 1 tab PO DAILY acetaminophen 325 mg Tablet 650 mg PO Q4H PRN PRN (Reason: Pain 1-10 Or Fever>99.6) Qty: 0 0RF atorvastatin 40 mg Tablet 40 mg PO QHS Qty: 30 0RF Changed melatonin 3 mg Tablet 3 mg PO QHS Qty: 30 0RF Discontinued lisinopril 30 mg tablet 30 mg PO DAILY metoprolol tartrate 50 mg Tablet 25 mg PO BID Qty: 0 0RF Eliquis 5 mg Tablet 2.5 mg PO BID Qty: 0 0RF cephalexin 500 mg Capsule 500 mg PO Q12 Qty: 2 0RF sennosides-docusate sodium [Stimulant Laxative Plus] 8.6-50 mg Tablet 2 tab PO BID Referrals / Follow Up: Tasha Deutsch CNS [Primary Care Provider] - 10/04/24 10:40 am Swapnil Balderrama MD [Med Staff - Active Staff] - 10/12/24 9:30 am Lakshmi Santana NP-C [Med Staff - Adv Practice Prof] - 10/04/24 9:00 am Disposition Disposition (needs filled in before D/C Order can be placed): Home Health Service 09/18/24 1146<Electronically signed by Behzad Dorado DO>Behzad Dorado DO CC: GARFIELD Deutsch; ANDIE Santana; Dr. Swapnil Balderrama MD ~ Signed [facility] Work Phone: [phone]) 981-986806-07-2025 [facility]06-07-2025 Discharge summary [facility] Medical Records Department [address] [place] [address] Instructions for Home/Discharge Instructions 09/17/24 0804 MR#: [id number] Acct: [id number] Name: BEHZAD HAY Rep #:[id number] : 1940 84 From: Behzad Dorado DO PCP: Tasha Deutsch, OUTREACH COORDINATOR Status:ADM IN Discharge Instructions DC O2, CPAP, BIPAP needs Home O2 Discharge instructions: No Dressing / Incision Discharge Activity: May Not Drive, May Shower and Use Walker Weight Bearing Status: Full weight bearing Dressing / Incision Call your doctor if you observe: Fever of 101 or Higher, Inability to urinate, Inability to have a bowel movement, Shortness of breath, Dizziness, Fainting spells, Swelling in the ankles, Chest pain,Increased palpitations (irregular heartbeat), Calf discomfort, Uncontrolled pain and - (STROKE symptoms: facial droop, slurred speech, inability to get words out, weakness on 1 side of the body and not the other, numbness on 1 side of the body and not the other, inability to maintain your balance sitting or standing, vertigo. ) Follow Up Care When: Appts have been scheduled for you with neurology, cardiology and with yourPCP. They are listed later in this document. Test Results: Test results from this visit will be discussed in further detail at your follow- up appointment, if applicable. Pending Tests Upon Discharge: none Discharge Plan Admission Admit Date/Time: 08/22/24 13:55 Primary Reason for Your Visit: POST STROKE DEBILITY Attending Provider: Behzad Dorado Primary Care Provider: Tasha Deutsch Instructions Patient Instructions: Urinary Tract Infections in Women, Discharge Instructionsfor Stroke, AFib Preventing Stroke, ED Cystitis Female Adult Additional Instructions / Restrictions: 1. Your BP is well controlled at the time of Discharge from rehab. the goal forBP in a pt of your age with a stroke is to keep the BP under 140/80. Your BP isnot too low. Signs that the BP may be toolow are dizziness, alex with standing), feeling like you are going to pass out, actually passing outwhen standing, shortness of breath with exertion, racing heart, sweating when you arestanding and sometimes nausea with standing for a prolonged period of time. 2. You are sleeping well at night and you have a good appetite. 3. Your lab 1 day prior to discharge from rehab looks very good. You are a little anemic. Your stool does have some blood in it and this is not unusual when your are taking an anticoagulant (blood thinner). You are on and anticoagulant called Eliquis (also called Apixaban). This is to help prevent a dditional strokes going forward since you have Atrial fibrillation (also calledAFIB). This is a problem with the rhythm of the heart and it causes little clots to form in the heart which can then getsqueezed out of the heart and go to the brain causing a stroke. You have been diagnosed with internal and external hemorrhoids in the past and I suspect this is why you have blood in thestool. Many people who are on anticoagulants have blood in the stool intermittently. Chronic blood loss can lead to iron deficiency and worsening anemia. I have placed you on an iron supplement which you will takeevery otherday. Iron supplements can cause constipation and it can make your stool look very dark or black. If you are having a problem with constipation you may want to start Metamucil or Miralax tohelp keep the stool soft. 4. You have had 2 urinary tract infections while on rehab. Both were caused bya bacteria called E. Coli. This bacteria lives in everyone's colon and it is a frequent cause of urinary tract infection,alex in women. Hygiene after a BM is very important. Make sure to wipe from the front to the back after a BM. Your family is looking into getting a bidet to attach to your toilet and this will bevery helpful in maintaining good hygiene. Until you get a bidet it would be a good idea to use baby wipesto clean yourself after a BM. In older people the symptoms of a urinary tract infection (UTI) are different than in younger women. As you age you frequently will not have a fever or chills with infection. You may not have burning with urination and this makes it difficult to diagnose. Ifyou have a change in mental status (more confused), new urinary incontinence, increased frequency of urination or nausea you may have a UTI. If you have any of these symptoms call your PCP for advice. They may want to check your urine. As you age you can also have bacteria in the urine even if you do not have a UTI. If you are totally asymptomatic then you probably would not need an antibiotic. 5. If you are having nose bleeds, coughing up blood, have blood in your urine, are having loose stools that are black or maroon colored then you should call your PCP for advice. Also call for sudden onset of severe headache, alex if you have fallen recently. 6. You have made great progress on rehab. You will need continued therapy after Discharge from rehab. Strokes often affect thought processing and you have had a lot of confusion BUT, you are improving with speech therapy. We do not feel you will be safe alone at the time of discharge from rehab andare recommending that you have 24/7 supervision until the speech therapist feels youare able to manage alone for a short time by yourself. I recommend you sign up for a service to provide you with a device you can activate if you fall or have an emergency that you need help with. The delinquency prevention social worker gave your family information about this. 7. It has been a pleasure having you on rehab. You are always so pleasant and ready to work with therapy and we have all enjoyed watching you get better and better. If you or your family have any questions after you leave rehab please do not hesitate to call me. OFFICE: [phone] CELL: [phone] NURSES STATION ON REHAB: [phone] Discharge Orders/Prescriptions Prescriptions: New cephalexin 500 mg Capsule 500 mg PO Q8 Qty: 5 0RF Rx Instructions: You will only need 5 more doses of this antibiotic once you get home and thenyou can stop. ferrous sulfate [FeroSul] 325 mg (65 mg iron) Tablet 325 mg PO Q48H Qty: 30 0RF lisinopril 10 mg Tablet 10 mg PO BID Qty: 60 0RF metoprolol tartrate 25 mg Tablet 25 mg PO BID Qty: 60 0RF cholecalciferol (vitamin D3) 25 mcg (1,000 unit) Tablet 25 mcg PO DAILY Qty: 30 0RF apixaban 2.5 mg tablet 2.5 mg PO BID Qty: 60 0RF Continued multivitamin [Daily Multi-Vitamin] Tablet 1 tab PO DAILY acetaminophen 325 mg Tablet 650 mg PO Q4H PRN PRN (Reason: Pain 1-10 Or Fever>99.6) Qty: 0 0RF atorvastatin 40 mg Tablet 40 mg PO QHS Qty: 30 0RF Changed melatonin 3 mg Tablet 3 mg PO QHS Qty: 30 0RF Discontinued lisinopril 30 mg tablet 30 mg PO DAILY metoprolol tartrate 50 mg Tablet 25 mg PO BID Qty: 0 0RF Eliquis 5 mg Tablet 2.5 mg PO BID Qty: 0 0RF cephalexin 500 mg Capsule 500 mg PO Q12 Qty: 2 0RF sennosides-docusate sodium [Stimulant Laxative Plus] 8.6-50 mg Tablet 2 tab PO BID Referrals / Follow Up: Tasha Deutsch CNS [Primary Care Provider] - 10/04/24 10:40 am Swapnil Balderrama MD [Med Staff - Active Staff] - 10/12/24 9:30 am Lakshmi Santana NP-C [Med Staff - Adv Practice Prof] - 10/04/24 9:00 am Disposition Disposition (needs filled in before D/C Order can be placed): [facility] CC: GARFIELD Deutsch; SALES DRIVERPamela Santana; Dr. Swapnil Balderrama MD ~ Signed [facility]06-06-2025 Telephone encounter Note* Telephone Encounter - Tamela James - 09/17/2024 1:48 PM EDT Date/Time: 09/17/2024 1:48 PM Spoke with ADITI CARVALHO@ phone #: [phone] - Preferred # for contact: ADITI CARVALHO@ phone #: [phone] Have you received help from a home care company in the last 60 days? NO Are you agreeable to [facility] services? YES What address will we be seeing you at? [address] [facility] [address] Do you have any upcoming appointments or things we need to schedule around? NO Do you have a teachable CG or can you manage your care independently? CG Who? FAMILY [facility] Work Phone: [phone] Miscellaneous Notes* Telephone Encounter - Tamela James - 09/17/2024 1:48 PM EDT Date/Time: 09/17/2024 1:48 PM Spoke with ADITI CRISTO@ phone #: [phone] - Preferred # for contact: ADITI CARVALHO@ phone #: [phone] Have you received help from a home care company in the last 60 days? NO Are you agreeable to [facility] services? YES What address will we be seeing you at? [address] [place] [address] Do you have any upcoming appointments or things we need to schedule around? NO Do you have a teachable CG or can you manage your care independently? CG Who? FAMILY [facility] Telephone encounter Note * Telephone Encounter - Tasha Deutsch APRN.CNP - 09/17/2024 12:55 PM EDT Yes. I will follow [facility]06-06-2025 Miscellaneous Notes* Telephone Encounter - Tasha Deutsch APRN.CNP - 09/17/2024 12:55 PM EDT Yes. I will follow * Telephone Encounter - Elisha Thompson LPN - 09/17/2024 12:28 PM EDT Tasha Deutsch APRN.CNP Please advise if you are agreeable to signing and following for [facility] services? Our Clinicians will be sending the Plan of Care to you for review and approval. They will reach out for any appropriate orders required to provide home care services for the patient. We are not able to initiate HHC services without a following provider. Home care clinicians may also obtain orders from [facility] Virtualist Providers Thank you and we would be happy to answer any questions. Elisha Thompson LPN 09/17/2024 12:28 PM documented [facility] Telephone encounter Note * Telephone Encounter - Elisha Thompson LPN - 09/17/2024 12:28 PM EDT Tasha Deutsch, COMMUNITY RELATIONS OFFICER.AVIATION ELECTRONIC WARFARE OPERATOR Please advise if you are agreeable to signing and following for HHC services? Our Clinicians will be sending the Plan of Care to you for review and approval. They will reach out for any appropriate orders required to provide home care services for the patient. We are not able to initiate HHC services without a following provider. Home care clinicians may also obtain orders from [facility] Virtualist Providers Thank you and we would be happy to answer any questions. Elisha Thompson LPN 09/17/2024 12:28 PM [facility]06-05-2025 Progress note Author Behzad Dorado [facility] Note Date/Time September 16, 2024 3:10p m [facility] Medical Records Department [address] [place] [address] Progress Note 09/16/24 1033 MR#: [id number] Acct: [id number] Name: BEHZAD HAY Rep #:[id number] : 1940 84 From: Behzad Dorado DO PCP: Tasha Deutsch, OUTREACH COORDINATOR Status:ADM IN Location: [place] [address]-1 Subjective Subjective Behzad was seen on team rounds today. Her son Art was present in the room and daughter Aditi participated by phone. Day #47 for E. Coli acute cystitis. Afebrile VSS -blood pressure is within goal. she has mild bradycardia but, she is on a beta coleman. The HR increases with exertion and she denies lightheadedness. Maintaining appropriate oxygen saturation on RA Oral intake - FOOD good FLUIDS good Discussed with nursing - no problems that need addressed Reviewed the THERAPY notes - confusion has improved with treating for UTI and the speech is no longer slurred. Doing better with therapy. Ambulating up to 490' with a FWW. Cognition is improving but, she will still need 24/7 supervision at [place]. She needs a lo9t of cuing to complete tasks. Able to followsome 2 step commands now. Medication list reviewed. Behzad denies lightheadedness, vertigo, CP, SOB at rest, SOB with exertion, cough,nausea, vomiting, abd pain, constipation, dysuria, calf pain and ankle swelling. She continues to have loose stool and has been incontinent of stool. Denies abd pain and she is eating well. Objective Data Objective Data Vital Signs: Vital Signs Temp Pulse Resp BP Pulse Ox O2 Del Method O2 Flow Rate 98.1 F 57 L 18 140/62 H 96 Room Air 2 09/16/24 06:04 09/16/24 08:05 09/16/24 06:04 09/16/24 06:04 09/16/24 06:04 09/16/24 06:04 08/31/24 23:58 Oxygen Flow Rate (L/min) 2 Oxygen Delivery Method Room Air Weight: 114 lb 6.719 oz Body Mass Index (BMI) 20.9 Intake & Output: Intake and Output for Last 24 Hours 09/14/24 09/15/24 09/16/24 23:59 23:59 23:59 Intake Total 2190 / 2190 1410 / 1410 440 / 440 Output Total 1650 / 1650 1400 / 1400 100 / 100 Balance 540 / 540 10 / 10 340 / 340 Lab / Micro Data 09/13/24 05:15 09/13/24 05:15 Micro: Microbiology 09/13/24 13:50 Urine Catheter - Catheter Urine Culture - Final Escherichia coli 08/27/24 09:05 Stool Stool Occult Blood (ALONSO) - Final Occult Blood Positive Physical Exam Const Constitutional Narrative: speech is more slurred and she is mumbling. More confused. No new focal neurologic deficits. Denies cephalgia. General Appearance: cooperative HEENT moist oral mucous membranes Resp normal respiratory effort and clear to auscultation bilaterally Effort and Inspection: Negative for tachypneic Cardio regular rate, regular rhythm and no gallops Cardio Narrative: No ectopy GI normal to inspection, nondistended, normoactive bowel sounds, soft to palpation and non-tender GI Narrative: No guarding with palpation.......also no guarding in the suprapubic area. Having loose stool and is sometimes incontinent despite not receiving stool softeners. Extremity no calf tenderness General Extremity: Negative for edema Skin Rashes: no rashes Psych Psych Narrative: Always pleasant and cooperative. for the most part remembers to use the call light. Not restless or fidgety. Makes good eye contact when speaking with me. 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 Continue therapy 2. Check fecal leukocytes 3. Hold Protonix - can cause diarrhea in up to 9% of patients 4. finish a 7 day course of Keflex. 5. Plan DC home on Friday. Family to provide 04/11 supervision. Would like prescriptions faxed to [facility] retail pharmacy. 6. Bidet recommended for home to help maintain good hygiene post BM. 7. CBC and BMP tomorrow Charges/Coding Visit Charges Inpatient E&M: 67566 Subs Hosp L2 09/16/24 1510 <Electronically signed by Behzad Dorado DO> Behzad Dorado DO Cosigner Signature (if applicable): CC: ~ Signed [facility] Work Phone: [phone]) 551-695506-05-2025 Progress note [facility] Medical Records Department [address] [place] [address] Progress Note 09/16/24 1033 MR#: [id number] Acct: [id number] Name: BEHZAD HAY Rep #:[id number] : 1940 84 From: Behzad Weber Estrada PCP: Tasha Deutsch, OUTREACH COORDINATOR Status:ADM IN Location: [address] Subjective Subjective Behzad was seen on team rounds today. Her son Art was present in the room and daughter Aditi participated by phone. Day #07/19 for E. Coli acute cystitis. Afebrile VSS -blood pressure is within goal. she has mild bradycardia but, she is on a beta coleman. The HR increases with exertion and she denies lightheadedness. Maintaining appropriate oxygen saturation on RA Oral intake - FOOD good FLUIDS good Discussed with nursing - no problems that need addressed Reviewed the THERAPY notes - confusion has improved with treating for UTI and the speech is no longer slurred. Doing better with therapy. Ambulating up to 490' with a FWW. Cognition is improving but,she will still need [place]. She needs a lo9t of cuing to complete tasks. Able to followsome 2 step commands now. Medication list reviewed. Behzad denies lightheadedness, vertigo, CP, SOB at rest, SOB with exertion, cough,nausea, vomiting, abd pain, constipation, dysuria, calf pain and ankle swelling. She continues to have loose stool and has been incontinent of stool. Denies abd pain and she is eating well. Objective Data Objective Data Vital Signs: Vital Signs Temp Pulse Resp BP Pulse Ox O2 Del Method O2 Flow Rate 98.1 F 57 L 18 140/62 H 96 Room Air 2 09/16/24 06:04 09/16/24 08:05 09/16/24 06:04 09/16/24 06:04 09/16/24 06:04 09/16/24 06:04 08/31/24 23:58 Oxygen Flow Rate (L/min) 2 Oxygen Delivery Method Room Air Weight: 114 lb 6.719 oz Body Mass Index (BMI) 20.9 Intake & Output: Intake and Output for Last 24 Hours 09/14/24 09/15/24 09/16/24 23:59 23:59 23:59 Intake Total 2190 / 2190 1410 / 1410 440 / 440 Output Total 1650 / 1650 1400 / 1400 100 / 100 Balance 540 / 540 340 / 340 Lab / Micro Data 09/13/24 05:15 09/13/24 05:15 Micro: Microbiology 09/13/24 13:50 Urine Catheter - Catheter Urine Culture - Final Escherichia coli 08/27/24 09:05 Stool Stool Occult Blood (ALONSO) - Final Occult Blood Positive Physical Exam Const Constitutional Narrative: speech is more slurred and she is mumbling. More confused. No new focal neurologic deficits. Deniescephalgia. General Appearance: cooperative HEENT moist oral mucous membranes Resp normal respiratory effort and clear to auscultation bilaterally Effort and Inspection: Negative for tachypneic Cardio regular rate, regular rhythm and no gallops Cardio Narrative: No ectopy GI normal to inspection, nondistended, normoactive bowel sounds, soft to palpation and non-tender GI Narrative: No guarding with palpation.......also no guarding in the suprapubic area. Having loose stool and issometimes incontinent despite not receiving stool softeners. Extremity no calf tenderness General Extremity: Negative for edema Skin Rashes: no rashes Psych Psych Narrative: Always pleasant and cooperative. for the most part remembers to use the call light. Not restless orfidgety. Makes good eye contact when speaking with me. 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 Continue therapy 2. Check fecal leukocytes 3. Hold Protonix - can cause diarrhea in up to 9% of patients 4. finish a 7 day course of Keflex. 5. Plan DC home on Friday. Family to provide / supervision. Would like prescriptions faxed to [facility] retail pharmacy. 6. Bidet recommended for home to help maintain good hygiene post BM. 7. CBC and BMP tomorrow Charges/Coding Visit Charges Inpatient E&M: 78554 Subs Hosp L2 09/16/24 1510 Behzad Weber Estrada DO Cosigner Signature (if applicable): CC: ~ Signed [facility]06-05-2025 Telephone encounter Note* Telephone Encounter - Winsome Butler MA - 09/16/2024 11:04 AM EDT Attachment sent [facility]06-05-2025 Miscellaneous Notes* Telephone Encounter - Winsome Butler MA - 09/16/2024 11:04 AM EDT Attachment sent * Telephone Encounter - Winsome Butler MA - 09/14/2024 3:25 PM EDT Completed form taken to scanning. Once completed, will sent attachment * Telephone Encounter - Mara Hatch MA - 09/14/2024 12:58 PM EDT See Boomrt message. Mara Hatch MA [facility] Telephone encounter Note * Telephone Encounter - Winsome Butler MA - 09/14/2024 3:25 PM EDT Completed form taken to scanning. Once completed, will sent attachment [facility]06-03-2025 Progress note Author Behzad Dorado [facility] Note Date/Time September 14, 2024 12:13 pm [facility] Medical Records Department [address] [place] [address] [place] [address] Progress Note 09/14/24 1058 MR#: [id number] Acct: [id number] Name: BEHZAD HAY Rep #:[id number] : 1940 84 From: Behzad VazquezModesto Estrada PCP: Tasha Deutsch, OUTREACH COORDINATOR Status:ADM IN [facility] Subject[facility] Subjective Day #2 Keflex for acute cystitis Afebrile Blood pressure is at goal. Heart rate is ranged from 59-65 over the past 24 hours. Good appetite Sleeping well at night UA yesterday was positive for nitrite and had 0-5 RBCs and 25-50 WBCs per high- power field with 2+ bacteria. Urine culture is pending. Preliminary is a gram-negative oliva. Urine culture on 08/18/2024 grew E. coli which was intermediately sensitive to ciprofloxacin but sensitive to everything else that was tested. She was diagnosed with this while on the acute side of the hospital and she was treated with 5 days of Keflex. D/W PT/OT. More confused the past 2 days. Speech is more slurred and she is more sleepy. OT tells me that the urine has nae odor today. Continues to be incontinent of urine which is new ........the last time she was incontinent was 08/31/24 unitl just the past 2 days. Continues to deny dysuria, flank pain, N/V/suprapubic pain. Objective Data Objective Data Vital Signs: Vital Signs Temp Pulse Resp BP Pulse Ox O2 Del Method O2 Flow Rate 98.5 F 59 L 14 120/51 L 97 Room Air 2 09/14/24 06:00 09/14/24 07:59 09/14/24 06:00 09/14/24 06:00 09/14/24 06:00 09/14/24 10:00 08/31/24 23:58 Oxygen Flow Rate (L/min) 2 Oxygen Delivery Method Room Air Weight: 114 lb 6.719 oz Body Mass Index (BMI) 20.9 Intake & Output: Intake and Output for Last 24 Hours 09/12/24 09/13/24 09/14/24 23:59 23:59 23:59 Intake Total 2089 / 2090 2610 / 2610 540 / 540 Output Total 1425 / 1425 1550 / 1550 550 / 550 Balance 665 / 665 1060 / 1060 -10 / -10 Lab / Micro Data 09/13/24 05:15 09/13/24 05:15 Labs: Laboratory Results - last 24 hr 09/13/24 13:50: Urine Color Yellow, Urine Clarity Sl. Cloudy, Urine pH 6.0, Ur Specific [place] 1.015, Urine Protein 15 H, Urine Glucose (UA) Normal, Urine Ketones Negative, Urine Occult Blood 50 H, Urine Nitrite Positive H, Urine Bilirubin Negative, Urine Urobilinogen Normal, Ur Leukocyte Esterase 500 H, Urine RBC 0-5 SEEN, Urine WBC 25-50 SEEN, Ur Squamous Epith Cells 0 SEEN, Urine Bacteria 2+, Urine Mucus 0 SEEN Micro: Microbiology 09/13/24 13:50 Urine Catheter - Catheter Urine Culture - Preliminary Gram negative oliva 08/27/24 09:05 Stool Stool Occult Blood (ALONSO) - Final Occult Blood Positive Physical Exam Const Constitutional Narrative: speech is more slurred and she is mumbling. More confused. No new focal neurologic deficits. Denies cephalgia. General Appearance: cooperative HEENT moist oral mucous membranes Resp normal respiratory effort and clear to auscultation bilaterally Effort and Inspection: Negative for tachypneic Cardio regular rate, regular rhythm and no gallops Cardio Narrative: No ectopy GI normal to inspection, nondistended, normoactive bowel sounds, soft to palpation and non-tender GI Narrative: No guarding with palpation.......also no guarding in the suprapubic area. 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 Continue therapy 2. Keflex 500 mg 3 times daily x 7 days. she denies dysuria, flank pain, N/V, suprapubic pain and she is AF but, she is now incontinent of urine again and shehas increased confusion and slurring of speech. I consider this symptomatic bacteriuria. If no improvement in the next 24H will consider a CT brain. Shehas not had any falls and she is not c/o ROSE. No new focal neurologic deficits. Charges/Coding Visit Charges Inpatient E&M: 27727 Subs Hosp L1 09/14/24 1213 <Electronically signed by Behzad Dorado DO> Behzad Dorado DO Cosigner Signature (if applicable): CC: ~ Signed [facility] Work Phone: 1(863) 159-939306-03-2025 Telephone encounter Note* Telephone Encounter - Mara Hatch MA - 09/14/2024 12:58 PM EDT See Circuport message. Mara Hatch MA [facility]06-03-2025 Progress note [facility] Medical Records Department [address] [place] [address] Progress Note 09/14/24 1058 MR#: [id number] Acct: [id number] Name: BEHZAD HAY Rep #:[id number] : 1940 84 From: Behzad Dorado DO PCP: Tasha Deutsch, OUTREACH COORDINATOR Status:ADM IN Location: [place] [address]-1 Subjective Subjective Day #2 Keflex for acute cystitis Afebrile Blood pressure is at goal. Heart rate is ranged from 59-65 over the past 24 hours. Good appetite Sleeping well at night UA yesterday was positive for nitrite and had 0-5 RBCs and 25-50 WBCs per high- power field with 2+ bacteria. Urine culture is pending. Preliminary is a gram- negative oliva. Urine culture on 08/18/2024 grew E. coli which was intermediately sensitive to ciprofloxacin but sensitive to everything else thatwas tested. She was diagnosed with this while on the acute side of the hospital and she was treatedwith 5 days of Keflex. D/W PT/OT. More confused the past 2 days. Speech is more slurred and she is more sleepy. OT tells me that the urine has nae odor today. Continues to be incontinent of urine which is new ........the last time she was incontinent was 08/31/24 unitl just the past 2 days. Continues to deny dysuria, flank pain, N/V/suprapubic pain. Objective Data Objective Data Vital Signs: Vital Signs Temp Pulse Resp BP Pulse Ox O2 Del Method O2 Flow Rate 98.5 F 59 L 14 120/51 L 97 Room Air 2 09/14/24 06:00 09/14/24 07:59 09/14/24 06:00 09/14/24 06:00 09/14/24 06:00 09/14/24 10:00 08/31/24 23:58 Oxygen Flow Rate (L/min) 2 Oxygen Delivery Method Room Air Weight: 114 lb 6.719 oz Body Mass Index (BMI) 20.9 Intake & Output: Intake and Output for Last 24 Hours 09/12/24 09/13/24 09/14/24 23:59 23:59 23:59 Intake Total 2090 / 2090 2610 / 2610 540 / 540 Output Total 1425 / 1425 1550 / 1550 550 / 550 Balance 665 / 665 1060 / 1060 -10 / -10 Lab / Micro Data 09/13/24 05:15 09/13/24 05:15 Labs: Laboratory Results - last 24 hr 09/13/24 13:50: Urine Color Yellow, Urine Clarity Sl. Cloudy, Urine pH 6.0, Ur Specific [place] 1.015, Urine Protein 15 H, Urine Glucose (UA) Normal, Urine Ketones Negative, Urine Occult Blood 50 H, Urine Nitrite Positive H, Urine Bilirubin Negative, Urine Urobilinogen Normal, Ur Leukocyte [id number] H, Urine RBC 0-5 SEEN, Urine WBC 25-50 SEEN, Ur Squamous Epith Cells 0 SEEN, Urine Bacteria 2+,Urine Mucus 0 SEEN Micro: Microbiology 09/13/24 13:50 Urine Catheter - Catheter Urine Culture - Preliminary Gram negative oliva 08/27/24 09:05 Stool Stool Occult Blood (ALONSO) - Final Occult Blood Positive Physical Exam Const Constitutional Narrative: speech is more slurred and she is mumbling. More confused. No new focal neurologic deficits. Deniescephalgia. General Appearance: cooperative HEENT moist oral mucous membranes Resp normal respiratory effort and clear to auscultation bilaterally Effort and Inspection: Negative for tachypneic Cardio regular rate, regular rhythm and no gallops Cardio Narrative: No ectopy GI normal to inspection, nondistended, normoactive bowel sounds, soft to palpation and non-tender GI Narrative: No guarding with palpation.......also no guarding in the suprapubic area. 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 Continue therapy 2. Keflex 500 mg 3 times daily x 7 days. she denies dysuria, flank pain, N/V, suprapubic pain and she is AF but, she is now incontinent of urine again and shehas increased confusion and slurring of speech. I consider this symptomatic bacteriuria. If no improvement in the next 24H will consider a CTbrain. Shehas not had any falls and she is not c/o ROSE. No new focal neurologic deficits. Charges/Coding Visit Charges Inpatient E&M: 59778 Subs Hosp L1 09/14/24 1213 Behzad Dorado DO Cosigner Signature (if applicable): CC: ~ Signed [facility]06-02-2025 Progress note Author Behzad Dorado [facility] Note Date/Time September 13, 2024 1:43p m [facility] Medical Records Department [address] [place] [address] Progress Note 09/13/24 1158 MR#: [id number] Acct: [id number] Name: BEHZAD HAY Rep #:[id number] : 1940 84 From: Behzad Dorado DO PCP: Tasha Deutsch, OUTREACH COORDINATOR Status:ADM IN Location: [place] [address]-1 Subjective Subjective Afebrile VSS -blood pressure is at goal and stable. Heart rate is within normal limits. Maintaining appropriate oxygen saturation on RA Oral intake - FOOD good FLUIDS good Discussed with nursing -incontinent of urine twice recently which is unusual. Nursing tells me her urine is malodorous. She is afebrile. She is continent ofstool. Reviewed the THERAPY notes Medication list reviewed. All lab from this morning was personally reviewed. Hemoglobin is stable at 11.4. Sodium is 140 and the potassium is 4.7. Serum bicarb is within normal limits. The BUN is 23 with a creatinine of 1.09 which is up from 0.89 on 09/06/2024 despite excellent fluid intake. Calcium is within normal limits. Behzad denies dysuria, urgency, flank pain, nausea (ate 100% of lunch), night sweats and chills. She also denies ROSE, lightheadedness, CP and palpitations. Objective Data Objective Data Vital Signs: Vital Signs Temp Pulse Resp BP Pulse Ox O2 Del Method O2 Flow Rate 97.9 F 65 16 128/59 H 95 Room Air 2 09/13/24 03:01 09/13/24 08:02 09/13/24 08:02 09/13/24 08:02 09/13/24 08:02 09/13/24 08:23 08/31/24 23:58 Oxygen Flow Rate (L/min) 2 Oxygen Delivery Method Room Air Weight: 114 lb 6.719 oz Body Mass Index (BMI) 20.9 Intake & Output: Intake and Output for Last 24 Hours 09/11/24 09/12/24 09/13/24 23:59 23:59 23:59 Intake Total 1890 / 1890 2090 / 2090 1460 / 1460 Output Total 2175 / 2175 1425 / 1425 600 / 600 Balance -285 / -285 665 / 665 860 / 860 Lab / Micro Data 09/13/24 05:15 09/13/24 05:15 Labs: Laboratory Results - last 24 hr 09/13/24 05:15: Hgb 11.4 L, Hct 35.8 L, Sodium 140, Potassium 4.7, Chloride 105,Carbon Dioxide 26.2, Anion Gap 9, BUN 23 H, Creatinine 1.09, Estim Creat Clear Calc 29.30 L, Est GFR (MDRD) Non-Af 49 L, BUN/Creatinine Ratio 20.6 H, Glucose 98, Calcium 9.4 Micro: Microbiology 08/27/24 09:05 Stool Stool Occult Blood (ALONSO) - Final Occult Blood Positive Physical Exam Const Constitutional Narrative: Sleeping in her recliner when I entered the room. Easily arousable. Calm. Engaged. Making good eye contact. Tends to speak fast and then is a little slurred. General Appearance: cooperative HEENT moist oral mucous membranes Resp normal respiratory effort and clear to auscultation bilaterally Effort and Inspection: Negative for tachypneic Cardio regular rate, regular rhythm and no gallops Cardio Narrative: No ectopy GI normal to inspection, nondistended, normoactive bowel sounds, soft to palpation and non-tender GI Narrative: No guarding with palpation.......also no guarding in the suprapubic area. Extremity no calf tenderness General Extremity: Negative for edema Skin Rashes: no rashes Psych cooperative Psych Narrative: Engaged with me and is making good eye contact. 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 (13) Malodorous urine: PLAN: Plan 1. Continue therapy 2. Straight cath and obtain a UA and if abnormal get a urine culture. 3. Since the creatinine is elevated despite good fluid intake we will check a couple postvoid residuals. Has been incontinent twice recently. Charges/Coding Visit Charges Inpatient E&M: 01563 Subs Hosp L1 09/13/24 1343 <Electronically signed by Behzad Dorado DO> Behzad Garciaalexus GOMEZ Cosigner Signature (if applicable): CC: ~ Signed [facility] Work Phone: 1(393) 459-847006-02-2025 Progress note [facility] Medical Records Department [address] [place] [address] Progress Note 09/13/24 1158 MR#: [id number] Acct: [id number] Name: BEHZAD HAY Rep #:[id number] : 1940 84 From: Behzad Dorado DO PCP: Tasha Deutsch, OUTREACH COORDINATOR Status:ADM IN Location: [place] [address] Subjective Subjective Afebrile VSS -blood pressure is at goal and stable. Heart rate is within normal limits. Maintaining appropriate oxygen saturation on RA Oral intake - FOOD good FLUIDS good Discussed with nursing -incontinent of urine twice recently which is unusual. Nursing tells me her urine is malodorous. She is afebrile. She is continent ofstool. Reviewed the THERAPY notes Medication list reviewed. All lab from this morning was personally reviewed. Hemoglobin is stable at 11.4. Sodium is 140 and the potassium is 4.7. Serum bicarb is within normal limits. The BUN is 23 with a creatinine of 1.09 which is up from 0.89 on 09/06/2024 despite excellent fluid intake. Calcium is within normal limits. Behzad denies dysuria, urgency, flank pain, nausea (ate 100% of lunch), night sweats and chills. She also denies ROSE, lightheadedness, CP and palpitations. Objective Data Objective Data Vital Signs: Vital Signs Temp Pulse Resp BP Pulse Ox O2 Del Method O2 Flow Rate 97.9 F 65 16 128/59 H 95 Room Air 2 09/13/24 03:01 09/13/24 08:02 09/13/24 08:02 09/13/24 08:02 09/13/24 08:02 09/13/24 08:23 08/31/24 23:58 Oxygen Flow Rate (L/min) 2 Oxygen Delivery Method Room Air Weight: 114 lb 6.719 oz Body Mass Index (BMI) 20.9 Intake & Output: Intake and Output for Last 24 Hours 09/11/24 09/12/24 09/13/24 23:59 23:59 23:59 Intake Total 1890 / 1890 2090 / 2090 1460 / 1460 Output Total 2175 / 2175 1425 / 1425 600 / 600 Balance -285 / -285 665 / 665 860 / 860 Lab / Micro Data 09/13/24 05:15 09/13/24 05:15 Labs: Laboratory Results - last 24 hr 09/13/24 05:15: Hgb 11.4 L, Hct 35.8 L, Sodium 140, Potassium 4.7, Chloride 105,Carbon Dioxide 26.2, Anion Gap 9, BUN 23 H, Creatinine 1.09, Estim Creat Clear Calc 29.30 L, Est GFR (MDRD) Non-Af 49 L, BUN/Creatinine Ratio 20.6 H, Glucose 98, Calcium 9.4 Micro: Microbiology 08/27/24 09:05 Stool Stool Occult Blood (ALONSO) - Final Occult Blood Positive Physical Exam Const Constitutional Narrative: Sleeping in her recliner when I entered the room. Easily arousable. Calm. Engaged. Making good eye contact. Tends to speak fast and then is a little slurred. General Appearance: cooperative HEENT moist oral mucous membranes Resp normal respiratory effort and clear to auscultation bilaterally Effort and Inspection: Negative for tachypneic Cardio regular rate, regular rhythm and no gallops Cardio Narrative: No ectopy GI normal to inspection, nondistended, normoactive bowel sounds, soft to palpation and non-tender GI Narrative: No guarding with palpation.......also no guarding in the suprapubic area. Extremity no calf tenderness General Extremity: Negative for edema Skin Rashes: no rashes Psych cooperative Psych Narrative: Engaged with me and is making good eye contact. 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 (13) Malodorous urine: PLAN: Plan 1. Continue therapy 2. Straight cath and obtain a UA and if abnormal get a urine culture. 3. Since the creatinine is elevated despite good fluid intake we will check a couple postvoid residuals. Has been incontinent twice recently. Charges/Coding Visit Charges Inpatient E&M: 23099 Subs Hosp L1 09/13/24 1343 Behzad Dorado DO Cosigner Signature (if applicable): CC: ~ Signed [facility]05-30-2025 Progress note Author Behzad [facility] Note Date/Time September 10, 2024 1:00p [facility] Medical Records Department [address] [place] [address] Progress Note 09/09/24 1415 MR#: [id number] Acct: [id number] Name: BEHZAD HAY Rep #:[id number] : 1940 84 From: Behzad Dorado DO PCP: Tasha Deutsch, OUTREACH COORDINATOR Status:ADM IN Location: [place] [address] Subjective Subjective Behzad was seen on team rounds today. Her son Art was present in the room and her daughter Aditi participated by phone. All their questions were answered to their satisfaction. Afebrile VSS -blood pressure is at goal. Heart rate is within normal limits. Maintaining appropriate oxygen saturation on RA Oral intake - FOOD good FLUIDS good Discussed with nursing - no problems that need addressed. sleeping well at night. Cooperative. Impulsive at night and sometimes tries to get out of bed. Not incontinent of urine or stool. Reviewed the THERAPY notes Medication list reviewed. Cognitive function is biggest issue. Aditi tells us that she was having memory issues/cognitive changes even prior to the CVA. Has never been evaluated by neurology for dementia. Denies CP, SOB, abd pain, calf pain and dysuria. Objective Data Objective Data Vital Signs: Vital Signs Temp Pulse Resp BP Pulse Ox O2 Del Method O2 Flow Rate 97.7 F L 82 16 122/60 H 95 Room Air 2 09/09/24 06:00 09/09/24 10:12 09/09/24 06:00 09/09/24 10:12 09/09/24 06:00 09/09/24 06:00 08/31/24 23:58 Oxygen Flow Rate (L/min) 2 Oxygen Delivery Method Room Air Weight: 116 lb 6.465 oz Body Mass Index (BMI) 21.2 Intake & Output: Intake and Output for Last 24 Hours 09/07/24 09/08/24 09/09/24 23:59 23:59 23:59 Intake Total 1330 / 1330 1190 / 1190 840 / 840 Output Total 1600 / 1800 1200 / 1200 900 / 900 Balance -270 / -470 -10 / -10 -60 / -60 Lab / Micro Data 09/06/24 06:32 09/06/24 06:32 Micro: Microbiology 08/27/24 09:05 Stool Stool Occult Blood (ALONSO) - Final Occult Blood Positive Physical Exam Const alert and no apparent distress Constitutional Narrative: Appropriate General Appearance: cooperative Resp normal respiratory effort, normal air movement and clear to auscultation bilaterally Cardio no rub and no gallops Cardio Narrative: Irregular irregular rhythm with controlled ventricular response. She has eithera bruit or a MM at the LVOT. Known paroxysmal atrial fibrillation. GI normal to inspection, nondistended, normoactive bowel sounds, soft to palpation and non-tender GI Narrative: No guarding with palpation. Extremity no calf tenderness and no pedal edema Neuro Neuro Narrative: very minimal facial droop now. Still with drift with the RUE but, strength is improved from admission. Also with some weakness in the RLE when compared to the left......no drift on exam. No visual field cuts. No aphasia today but, has trouble following commands. Some nonsensical responses to questions. I asked her how her breathing was today and she said, "I had diarrhea today". Shewould not be safe alone and would need 24/7 supervision if she would be discharged at this time. 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 Aditi told me today that she reviewed her last colonoscopy report and Behzad has known internal and external hemorrhoids. PLAN: Plan 1. Continue therapy 2. No change to the drug regimen today 3. SW discussed options for DC.......assisted living, SNF (doubt insurance willcover this since she is doing so well with ambulation and the main problem at this time is cognition), ECF, 04/11 care at home. 4. REcheck a HH and BMP on Friday Charges/Coding Visit Charges Inpatient E&M: 06530 Subs Hosp L2 09/10/24 1300 <Electronically signed by Behzad Dorado DO> Behzad Dorado DO Cosigner Signature (if applicable): CC: ~ Signed [facility] Work Phone: 1(320) 257-247605-30-2025 Progress note [facility] Medical Records Department [address] [place] [address] Progress Note 09/09/24 1415 MR#: [id number] Acct: [id number] Name: BEHZAD HAY Rep #:[id number] : 1940 84 From: Behzad Dorado DO PCP: Tasha Deutsch, OUTREACH COORDINATOR Status:ADM IN Location: [place] [address] Subjective Subjective Behzad was seen on team rounds today. Her son Art was present in the room and her daughter Aditi participated by phone. All their questions were answered to their satisfaction. Afebrile VSS -blood pressure is at goal. Heart rate is within normal limits. Maintaining appropriate oxygen saturation on RA Oral intake - FOOD good FLUIDS good Discussed with nursing - no problems that need addressed. sleeping well at night. Cooperative. Impulsive at night and sometimes tries to get out of bed. Not incontinent of urine or stool. Reviewed the THERAPY notes Medication list reviewed. Cognitive function is biggest issue. Aditi tells us that she was having memory issues/cognitive changes even prior to the CVA. Has never been evaluated by neurology for dementia. Denies CP, SOB, abd pain, calf pain and dysuria. Objective Data Objective Data Vital Signs: Vital Signs Temp Pulse Resp BP Pulse Ox O2 Del Method O2 Flow Rate 97.7 F L 82 16 122/60 H 95 Room Air 2 09/09/24 06:00 09/09/24 10:12 09/09/24 06:00 09/09/24 10:12 09/09/24 06:00 09/09/24 06:00 08/31/24 23:58 Oxygen Flow Rate (L/min) 2 Oxygen Delivery Method Room Air Weight: 116 lb 6.465 oz Body Mass Index (BMI) 21.2 Intake & Output: Intake and Output for Last 24 Hours 09/07/24 09/08/24 09/09/24 23:59 23:59 23:59 Intake Total 1330 / 1330 1190 / 1190 840 / 840 Output Total 1600 / 1800 1200 / 1200 900 / 900 Balance -270 / -470 -10 / -10 -60 / -60 Lab / Micro Data 09/06/24 06:32 09/06/24 06:32 Micro: Microbiology 08/27/24 09:05 Stool Stool Occult Blood (ALONSO) - Final Occult Blood Positive Physical Exam Const alert and no apparent distress Constitutional Narrative: Appropriate General Appearance: cooperative Resp normal respiratory effort, normal air movement and clear to auscultation bilaterally Cardio no rub and no gallops Cardio Narrative: Irregular irregular rhythm with controlled ventricular response. She has eithera bruit or a MM at the LVOT. Known paroxysmal atrial fibrillation. GI normal to inspection, nondistended, normoactive bowel sounds, soft to palpation and non-tender GI Narrative: No guarding with palpation. Extremity no calf tenderness and no pedal edema Neuro Neuro Narrative: very minimal facial droop now. Still with drift with the RUE but, strength is improved from admission. Also with some weakness in the RLE when compared to the left......no drift on exam. No visual field cuts. No aphasia today but, has trouble following commands. Some nonsensical responses to questions. I asked her how her breathing was today and she said, "I had diarrhea today". Shewould not be safe alone and would need 24/7 supervision if she would be discharged at this time. 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 Aditi told me today that she reviewed her last colonoscopy report and Denzel known internal and external hemorrhoids. PLAN: Plan 1. Continue therapy 2. No change to the drug regimen today 3. SW discussed options for DC.......assisted living, SNF (doubt insurance willcover this since sheis doing so well with ambulation and the main problem at this time is cognition), ECF, 04/11 care athome. 4. REcheck a HH and BMP on Friday Charges/Coding Visit Charges Inpatient E&M: 17022 Subs Hosp L2 09/10/24 1300 Behzad Dorado DO Cosigner Signature (if applicable): CC: ~ Signed [facility]05-27-2025 Progress note Author Behzad Dorado [facility] Note Date/Time September 07, 2024 4:28p m [facility] Medical Records Department [address] [place] [address] Progress Note 09/05/24 0848 MR#: [id number] Acct: [id number] Name: BEHZAD HAY Rep #:[id number] : 1940 84 From: Behzad Dorado DO PCP: Tasha Deutsch, OUTREACH COORDINATOR Status:ADM IN Location: [place] [address]1 Subjective Subjective Afebrile VSS -blood pressure is well-controlled and at goal. Better control with giving lisinopril 10 mg twice daily rather than 20 mg once daily. Heart rate is withinnormal limits. Maintaining appropriate oxygen saturation on RA Oral intake - FOOD good FLUIDS good Discussed with nursing - no problems that need addressed Reviewed the THERAPY notes Medication list reviewed. Behzad has no complaints today. She is sleeping well, has a good appetite and is always willing to do therapy. She denies lightheadedness, chest pain, shortness of breath, calf pain, dysuria, abdominal pain. Objective Data Objective Data Vital Signs: Vital Signs Temp Pulse Resp BP Pulse Ox O2 Del Method O2 Flow Rate 98.0 F 81 15 127/67 H 97 Room Air 2 09/05/24 06:00 09/05/24 07:56 09/05/24 06:00 09/05/24 07:56 09/05/24 06:00 09/05/24 06:00 08/31/24 23:58 Oxygen Flow Rate (L/min) 2 Oxygen Delivery Method Room Air Weight: 116 lb 6.465 oz Body Mass Index (BMI) 21.2 Intake & Output: Intake and Output for Last 24 Hours 09/03/24 09/04/24 09/05/24 23:59 23:59 23:59 Intake Total 1360 / 1360 1320 / 1320 740 / 740 Output Total 2100 / 2100 1400 / 1400 900 / 900 Balance -740 / -740 -80 / -80 -160 / -160 Lab / Micro Data 09/06/24 06:32 09/06/24 06:32 Micro: Microbiology 08/27/24 09:05 Stool Stool Occult Blood (ALONSO) - Final Occult Blood Positive Physical Exam Const alert and no apparent distress Constitutional Narrative: Appropriate General Appearance: cooperative Resp normal respiratory effort, normal air movement and clear to auscultation bilaterally Cardio no rub and no gallops Cardio Narrative: Irregular irregular rhythm with controlled ventricular response. She has eithera bruit or a MM at the LVOT. Known paroxysmal atrial fibrillation. GI normal to inspection, nondistended, normoactive bowel sounds, soft to palpation and non-tender GI Narrative: No guarding with palpation. 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 Continue therapy 2. Check an H&H and BMP in the a.m. 3. No changes to the drug regimen today. Charges/Coding Visit Charges Inpatient E&M: 85864 Subs Hosp L1 09/07/241627 <Electronically signed by Behzad Dorado DO> Behzad Dorado DO Cosigner Signature (if applicable): CC: ~ Signed [facility] Work Phone: 1(208) 232-768205-27-2025 Progress note Author Behzad Dorado [facility] Note Date/Time September 07, 2024 4:26p m [facility] Medical Records Department [address] [place] [address] Progress Note 09/07/241619 MR#: [id number] Acct: [id number] Name: BEHZAD HAY Rep #:[id number] : 1940 84 From: Behzad Dorado DO PCP: Tasha Deutsch, OUTREACH COORDINATOR Status:ADM IN Location: [place] [address] Subjective Subjective Afebrile VSS -is within goal. Heart rate is within normal limits. Denies lightheadedness. Maintaining appropriate oxygen saturation on RA Oral intake - FOOD good FLUIDS good Discussed with nursing - no problems that need addressed. Sleeping well at night. Having regular bowel movements. Pleasant and cooperative. Reviewed the THERAPY notes Medication list reviewed. Behzad denies lightheadedness, vertigo, CP, SOB at rest, SOB with exertion, cough, nausea, vomiting, abd pain, diarrhea, constipation, dysuria, calf pain and ankle swelling. Objective Data Objective Data Vital Signs: Vital Signs Temp Pulse Resp BP Pulse Ox O2 Del Method O2 Flow Rate 98.9 F 62 14 128/78 H 98 Room Air 2 09/07/24 06:00 09/07/24 07:56 09/07/24 06:00 09/07/24 07:56 09/07/24 06:00 09/07/24 06:00 08/31/24 23:58 Oxygen Flow Rate (L/min) 2 Oxygen Delivery Method Room Air Weight: 116 lb 6.465 oz Body Mass Index (BMI) 21.2 Intake & Output: Intake and Output for Last 24 Hours 09/05/24 09/06/24 09/07/24 23:59 23:59 23:59 Intake Total 1820 / 1820 2040 / 0 1030 / 1030 Output Total 1949 / 1949 1425 / 1425 1600 / 1600 Balance -130 / -130 615 / 615 -570 / -570 Lab / Micro Data 09/06/24 06:32 09/06/24 06:32 Micro: Microbiology 08/27/24 09:05 Stool Stool Occult Blood (ALONSO) - Final Occult Blood Positive Physical Exam Const alert and no apparent distress Constitutional Narrative: Appropriate General Appearance: cooperative Resp normal respiratory effort, normal air movement and clear to auscultation bilaterally Cardio no rub and no gallops Cardio Narrative: Irregular irregular rhythm with controlled ventricular response. She has eithera bruit or a MM at the LVOT. Known paroxysmal atrial fibrillation. GI normal to inspection, nondistended, normoactive bowel sounds, soft to palpation and non-tender GI Narrative: No guarding with palpation. 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 Continue therapy 2. I believe the drop in hemoglobin is more likely than not secondary to betterhydration rather than GI bleeding although she did have heme positive stool.. She is on Protonix 40 mg daily. Not uncommon to have heme positive stools with chronic anticoagulation. She is not on an antiplatelet agent because she is on apixaban. 3. would need 24/7 supervision if she were to go home. SW aware. Will discusswith family. Charges/Coding Visit Charges Inpatient E&M: 59151 Subs Hosp L1 09/07/24 5446 <Electronically signed by Behzad Dorado DO> Behzad Dorado DO Cosigner Signature (if applicable): CC: ~ Signed [facility] Work Phone: 1(658) 810-647505-27-2025 Progress note [facility] Medical Records Department [address] [place] [address] Progress Note 09/05/24 0848 MR#: [id number] Acct: [id number] Name: BEHZAD HAY Rep #:[id number] : 1940 84 From: Behzad Dorado DO PCP: Tasha Deutsch, OUTREACH COORDINATOR Status:ADM IN Location: [place] [address] Subjective Subjective Afebrile VSS -blood pressure is well-controlled and at goal. Better control with giving lisinopril 10 mg twice daily rather than 20 mg once daily. Heart rate is withinnormal limits. Maintaining appropriate oxygen saturation on RA Oral intake - FOOD good FLUIDS good Discussed with nursing - no problems that need addressed Reviewed the THERAPY notes Medication list reviewed. Behzad has no complaints today. She is sleeping well, has a good appetite and is always willing to dotherapy. She denies lightheadedness, chest pain, shortness of breath, calf pain, dysuria, abdominalpain. Objective Data Objective Data Vital Signs: Vital Signs Temp Pulse Resp BP Pulse Ox O2 Del Method O2 Flow Rate 98.0 F 81 15 127/67 H 97 Room Air 2 09/05/24 06:00 09/05/24 07:56 09/05/24 06:00 09/05/24 07:56 09/05/24 06:00 09/05/24 06:00 08/31/24 23:58 Oxygen Flow Rate (L/min) 2 Oxygen Delivery Method Room Air Weight: 116 lb 6.465 oz Body Mass Index (BMI) 21.2 Intake & Output: Intake and Output for Last 24 Hours 09/03/24 09/04/24 09/05/24 23:59 23:59 23:59 Intake Total 1360 / 1360 1320 / 1320 740 / 740 Output Total 2100 / 2100 1400 / 1400 900 / 900 Balance -740 / -740 -80 / -80 -160 / -160 Lab / Micro Data 09/06/24 06:32 09/06/24 06:32 Micro: Microbiology 08/27/24 09:05 Stool Stool Occult Blood (ALONSO) - Final Occult Blood Positive Physical Exam Const alert and no apparent distress Constitutional Narrative: Appropriate General Appearance: cooperative Resp normal respiratory effort, normal air movement and clear to auscultation bilaterally Cardio no rub and no gallops Cardio Narrative: Irregular irregular rhythm with controlled ventricular response. She has eithera bruit or a MM at the LVOT. Known paroxysmal atrial fibrillation. GI normal to inspection, nondistended, normoactive bowel sounds, soft to palpation and non-tender GI Narrative: No guarding with palpation. 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 Continue therapy 2. Check an H&H and BMP in the a.m. 3. No changes to the drug regimen today. Charges/Coding Visit Charges Inpatient E&M: 63261 [facility] Hosp L1 09/07/241627 Behzad Dorado DO Cosigner Signature (if applicable): CC: ~ Signed [facility]05-27-2025 Progress note [facility] Medical Records Department [address] [place] [id number] Progress Note 09/07/24 162 MR#: [id number] Acct: [id number] Name: BEHZAD HAY Rep #:[id number] : 1940 84 From: Behzad Dorado DO PCP: Tasha Deutsch, OUTREACH COORDINATOR Status:ADM IN Location: [place] [address] Subjective Subjective Afebrile VSS -is within goal. Heart rate is within normal limits. Denies lightheadedness. Maintaining appropriate oxygen saturation on RA Oral intake - FOOD good FLUIDS good Discussed with nursing - no problems that need addressed. Sleeping well at night. Having regular bowel movements. Pleasant and cooperative. Reviewed the THERAPY notes Medication list reviewed. Behzad denies lightheadedness, vertigo, CP, SOB at rest, SOB with exertion, cough, nausea, vomiting, abd pain, diarrhea, constipation, dysuria, calf pain and ankle swelling. Objective Data Objective Data Vital Signs: Vital Signs Temp Pulse Resp BP Pulse Ox O2 Del Method O2 Flow Rate 98.9 F 62 14 128/78 H 98 Room Air 2 09/07/24 06:00 09/07/24 07:56 09/07/24 06:00 09/07/24 07:56 09/07/24 06:00 09/07/24 06:00 08/31/24 23:58 Oxygen Flow Rate (L/min) 2 Oxygen Delivery Method Room Air Weight: 116 lb 6.465 oz Body Mass Index (BMI) 21.2 Intake & Output: Intake and Output for Last 24 Hours 09/05/24 09/06/24 09/07/24 23:59 23:59 23:59 Intake Total 1820 / 1820 2040 / 2040 1030 / 1030 Output Total 1950 / 1950 1425 / 1425 1600 / 1600 Balance -130 / -130 615 / 615 -570 / -570 Lab / Micro Data 09/06/24 06:32 09/06/24 06:32 Micro: Microbiology 08/27/24 09:05 Stool Stool Occult Blood (ALONSO) - Final Occult Blood Positive Physical Exam Const alert and no apparent distress Constitutional Narrative: Appropriate General Appearance: cooperative Resp normal respiratory effort, normal air movement and clear to auscultation bilaterally Cardio no rub and no gallops Cardio Narrative: Irregular irregular rhythm with controlled ventricular response. She has eithera bruit or a MM at the LVOT. Known paroxysmal atrial fibrillation. GI normal to inspection, nondistended, normoactive bowel sounds, soft to palpation and non-tender GI Narrative: No guarding with palpation. 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 Continue therapy 2. I believe the drop in hemoglobin is more likely than not secondary to betterhydration rather than GI bleeding although she did have heme positive stool.. She is on Protonix 40 mg daily. Not uncommon to have heme positive stools with chronic anticoagulation. She is not on an antiplatelet agent because she is on apixaban. 3. would need 24/7 supervision if she were to go home. SW aware. Will discusswith family. Charges/Coding Visit Charges Inpatient E&M: 38870 Subs Hosp L1 09/07/24 1626 Behzad Dorado Cosigner Signature (if applicable): CC: ~ Signed [facility]05-23-2025 Progress note Author Behzad Dorado [facility] Note Date/Time September 03, 2024 6:45p m [facility] Medical Records Department [address] [place] [address] Progress Note 09/02/24 1038 MR#: [id number] Acct: [id number] Name: BEHZAD HAY Rep #:[id number] : 1940 84 From: Behzad Dorado DO PCP: Tasha Deutsch, OUTREACH COORDINATOR Status:ADM IN Location: [place] [address] Subjective Subjective Behzad was seen on team rounds today. Behzad's son Art was present in the room and her daughter participated by phone. All their questions were answered to their satisfaction. Afebrile VSS -blood pressure last night at bedtime and this morning is on the low side at105/55 to 105/60. Heart rate is ranged from 59-67 over the past 24 hours. She is on a beta-coleman to control heart rate in atrial fibrillation. Maintaining appropriate oxygen saturation on RA Oral intake - FOOD good FLUIDS fluid intake yesterday was 1080. She had 1150 out. Overnight she had 100 and and 700 out for a fluid balance of -600. Fluid balance has been negative the past few days Discussed with nursing - no problems that need addressed. Sleeping well at night. Reviewed the THERAPY notes Medication list reviewed. Behzad denies cephalgia, lightheadedness, chest pain, shortness of breath, cough, heartburn, nausea/vomiting/abdominal pain, diarrhea/constipation, dysuria and calf tenderness. She is doing quite well in therapy and always pleasant and cooperative. Objective Data Objective Data Vital Signs: Vital Signs Temp Pulse Resp BP Pulse Ox O2 Del Method O2 Flow Rate 97.0 F L 64 16 105/55 L 96 Room Air 2 09/02/24 05:52 09/02/24 08:12 09/02/24 05:52 09/02/24 05:52 09/02/24 05:52 09/02/24 05:52 08/31/24 23:58 Oxygen Flow Rate (L/min) 2 Oxygen Delivery Method Room Air Weight: 115 lb 8.356 oz Body Mass Index (BMI) 21.1 Intake & Output: Intake and Output for Last 24 Hours 08/31/24 09/01/24 09/02/24 23:59 23:59 23:59 Intake Total 1580 / 1580 1080 / 1080 100 / 100 Output Total 1750 / 1750 1150 / 1150 700 / 700 Balance -170 / -170 -70 / -70 -600 / -600 Lab / Micro Data 08/30/24 10:35 08/30/24 10:35 Micro: Microbiology 08/27/24 09:05 Stool Stool Occult Blood (ALONSO) - Final Occult Blood Positive Physical Exam Const alert and no apparent distress General Appearance: cooperative HEENT Mouth: dry mucous membranes Resp normal respiratory effort, normal air movement and clear to auscultation bilaterally Cardio no rub and no gallops Cardio Narrative: Irregular irregular rhythm with controlled ventricular response. She has eithera bruit or a MM at the LVOT. Known paroxysmal atrial fibrillation. GI normal to inspection, nondistended, normoactive bowel sounds, soft to palpation and non-tender GI Narrative: No guarding with palpation. 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 Continue therapy 2. Decrease lisinopril to 20 mg -hold the dose if the systolic is less than 110. 3. Continue to encourage increased fluid intake - she is very complaint when wetell her to drink more but, she needs to be reminded at times. 4. Awaiting the results of the orthostatics ordered for today Charges/Coding Visit Charges Inpatient E&M: 93753 Subs Hosp L2 09/03/241844 <Electronically signed by Behzad Dorado DO> Behzad Dorado DO Cosigner Signature (if applicable): CC: ~ Signed ADDENDUM by Dr. Behzad Dorado DO on 09/03/24 at 1845 Addendum Orthostatic vital signs were negative. 09/03/241844 <Electronically signed by Behzad vaughan DO> Date _ Behzad Dorado DO Cosigner Signature (if applicable): Date cc: ~* Signed [facility] Work Phone: 1(701) 442-230105-23-2025 Progress note [facility] Medical Records Department [address] [place] [address] Progress Note 09/02/24 1038 MR#: [id number] Acct: [id number] Name: BEHZAD HAY Rep #:[id number] : 1940 84 From: Behzad Dorado DO PCP: aTsha Deutsch, OUTREACH COORDINATOR Status:ADM IN Location: [place] [address] Subjective Subjective Behzad was seen on team rounds today. Behzad's son Art was present in the room and her daughter participated by phone. All their questions were answered to their satisfaction. Afebrile VSS -blood pressure last night at bedtime and this morning is on the low side at105/55 to 105/60. Heart rate is ranged from 59-67 over the past 24 hours. She is on a beta-coleman to control heart rate in atrial fibrillation. Maintaining appropriate oxygen saturation on RA Oral intake - FOOD good FLUIDS fluid intake yesterday was 1080. She had 1150 out. Overnight she [id number] and and 700 out for a fluid balance of -600. Fluid balance has been negative the past few days Discussed with nursing - no problems that need addressed. Sleeping well at night. Reviewed the THERAPY notes Medication list reviewed. Behzad denies cephalgia, lightheadedness, chest pain, shortness of breath, cough, heartburn, nausea/vomiting/abdominal pain, diarrhea/constipation, dysuria and calf tenderness. She is doing quite well in therapy and always pleasant and cooperative. Objective Data Objective Data Vital Signs: Vital Signs Temp Pulse Resp BP Pulse Ox O2 Del Method O2 Flow Rate 97.0 F L 64 16 105/55 L 96 Room Air 2 09/02/24 05:52 09/02/24 08:12 09/02/24 05:52 09/02/24 05:52 09/02/24 05:52 09/02/24 05:52 08/31/24 23:58 Oxygen Flow Rate (L/min) 2 Oxygen Delivery Method Room Air Weight: 115 lb 8.356 oz Body Mass Index (BMI) 21.1 Intake & Output: Intake and Output for Last 24 Hours 08/31/24 09/01/24 09/02/24 23:59 23:59 23:59 Intake Total 1580 / 1580 1080 / 1080 100 / 100 Output Total 1750 / 1750 1150 / 1150 700 / 700 Balance -170 / -170 -70 / -70 -600 / -600 Lab / Micro Data 08/30/24 10:35 08/30/24 10:35 Micro: Microbiology 08/27/24 09:05 Stool Stool Occult Blood (ALONSO) - Final Occult Blood Positive Physical Exam Const alert and no apparent distress General Appearance: cooperative HEENT Mouth: dry mucous membranes Resp normal respiratory effort, normal air movement and clear to auscultation bilaterally Cardio no rub and no gallops Cardio Narrative: Irregular irregular rhythm with controlled ventricular response. She has eithera bruit or a MM at the LVOT. Known paroxysmal atrial fibrillation. GI normal to inspection, nondistended, normoactive bowel sounds, soft to palpation and non-tender GI Narrative: No guarding with palpation. 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 Continue therapy 2. Decrease lisinopril to 20 mg -hold the dose if the systolic is less than 110. 3. Continue to encourage increased fluid intake - she is very complaint when wetell her to drink more but, she needs to be reminded at times. 4. Awaiting the results of the orthostatics ordered for today Charges/Coding Visit Charges Inpatient E&M: 19366 Subs Hosp L2 09/03/241844 Behzad Dorado DO Cosigner Signature (if applicable): CC: ~ Signed ADDENDUM by Dr. Behzad Dorado DO on 09/03/24 at 1845 Addendum Orthostatic vital signs were negative. 09/03/241844 ti DO> Date _ Behzad Dorado DO Coskariser Signature (if applicable): Date cc: ~* Signed [facility]05-22-2025 Progress note Author Behzad Dorado [facility] Note Date/Time September 02, 2024 10:38 am [facility] Medical Records Department [address] [place] [address] Progress Note 08/31/241624 MR#: [id number] Acct: [id number] Name: BHARTIBEHZAD Rep #:[id number] : 1940 84 From: Behzad Dorado DO PCP: Tasha Deutsch, OUTREACH COORDINATOR Status:ADM IN Location: [place] [address] Subjective Subjective Afebrile VSS - Maintaining appropriate oxygen saturation on RA Oral intake - FOOD good FLUIDS fair to good. She needs encouragement/reminders to increase fluid intake but when she is reminded she does. Discussed with nursing - no problems that need addressed Reviewed the THERAPY notes Medication list reviewed. Behzad has no complaints today. She denies lightheadedness, cephalgia, chest pain, shortness of breath, cough, abdominal pain, dysuria and calf tenderness. Objective Data Objective Data Vital Signs: Vital Signs Temp Pulse Resp BP Pulse Ox O2 Del Method 98 F 70 14 122/74 H 95 Room Air 08/31/24 06:00 08/31/24 09:55 08/31/24 09:55 08/31/24 06:00 08/31/24 06:00 08/31/24 09:55 Oxygen Delivery Method Room Air Weight: 115 lb 8.356 oz Body Mass Index (BMI) 21.1 Intake & Output: Intake and Output for Last 24 Hours 08/29/24 08/30/24 08/31/24 23:59 23:59 23:59 Intake Total 1930 / 1930 960 / 1610 1460 / 1460 Output Total 1830 / 1830 1700 / 1700 1300 / 1300 Balance 100 / 100 -740 / -90 160 / 160 Lab / Micro Data 08/30/24 10:35 08/30/24 10:35 Micro: Microbiology 08/27/24 09:05 Stool Stool Occult Blood (ALONSO) - Final Occult Blood Positive Physical Exam Const alert and no apparent distress Constitutional Narrative: Pleasant, makes good eye contact, very motivated to do therapy and get better General Appearance: cooperative HEENT Mouth: dry mucous membranes Resp normal respiratory effort, normal air movement and clear to auscultation bilaterally Cardio no rub and no gallops Cardio Narrative: Irregular irregular rhythm with controlled ventricular response. She has eithera bruit or a MM at the LVOT. Known paroxysmal atrial fibrillation. GI normal to inspection, nondistended, normoactive bowel sounds, soft to palpation and non-tender GI Narrative: No guarding with palpation. 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 Continue therapy 2. Encouraged her to increase her fluid intake 3. Check orthostatics in the a.m Charges/Coding Visit Charges Inpatient E&M: 81618 Subs Hosp L1 09/02/24 1038 <Electronically signed by Behzad Dorado DO> Behzad Dorado DO Cosigner Signature (if applicable): CC: ~ Signed [facility] Work Phone: 1(158) 416-371605-22-2025 Progress note [facility] Medical Records Department [address] [place] [id number] Progress Note 08/31/24 1625 MR#: [id number] Acct: [id number] Name: BEHZAD HAY Rep #:[id number] : 1940 84 From: Bhezad Dorado DO PCP: Tasha Deutsch, OUTREACH COORDINATOR Status:ADM IN Location: [place] [address] Subjective Subjective Afebrile VSS - Maintaining appropriate oxygen saturation on RA Oral intake - FOOD good FLUIDS fair to good. She needs encouragement/reminders to increase fluid intake but when she is reminded she does. Discussed with nursing - no problems that need addressed Reviewed the THERAPY notes Medication list reviewed. Behzad has no complaints today. She denies lightheadedness, cephalgia, chest pain, shortness of breath, cough, abdominal pain, dysuria and calf tenderness. Objective Data Objective Data Vital Signs: Vital Signs Temp Pulse Resp BP Pulse Ox O2 Del Method 98 F 70 14 122/74 H 95 Room Air 08/31/24 06:00 08/31/24 09:55 08/31/24 09:55 08/31/24 06:00 08/31/24 06:00 08/31/24 09:55 Oxygen Delivery Method Room Air Weight: 115 lb 8.356 oz Body Mass Index (BMI) 21.1 Intake & Output: Intake and Output for Last 24 Hours 08/29/24 08/30/24 08/31/24 23:59 23:59 23:59 Intake Total 1930 / 1930 960 / 1610 1460 / 1460 Output Total 1830 / 1830 1700 / 1700 1300 / 1300 Balance 100 / 100 -740 / -90 160 / 160 Lab / Micro Data 08/30/24 10:35 08/30/24 10:35 Micro: Microbiology 08/27/24 09:05 Stool Stool Occult Blood (ALONSO) - Final Occult Blood Positive Physical Exam Const alert and no apparent distress Constitutional Narrative: Pleasant, makes good eye contact, very motivated to do therapy and get better General Appearance: cooperative HEENT Mouth: dry mucous membranes Resp normal respiratory effort, normal air movement and clear to auscultation bilaterally Cardio no rub and no gallops Cardio Narrative: Irregular irregular rhythm with controlled ventricular response. She has eithera bruit or a MM at the LVOT. Known paroxysmal atrial fibrillation. GI normal to inspection, nondistended, normoactive bowel sounds, soft to palpation and non-tender GI Narrative: No guarding with palpation. 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 Continue therapy 2. Encouraged her to increase her fluid intake 3. Check orthostatics in the a.m Charges/Coding Visit Charges Inpatient E&M: 27945 Subs Hosp L1 09/02/24 1038 Behzad Boyer Signature (if applicable): CC: ~ Signed [facility]05-19-2025 Progress note Author Behzad Dorado [facility] Note Date/Time August 30, 2024 2:11p m [facility] Medical Records Department [address] [place] [address] Progress Note 08/30/24 0924 MR#: [id number] Acct: [id number] Name: BEHZAD HAY Rep #:[id number] : 1940 84 From: Behzad Weber Estrada PCP: Tasha Deutsch, OUTREACH COORDINATOR Status:ADM IN Location: [place] [address] Subjective Subjective Afebrile VSS -blood pressure over the weekend has ranged from 115/57 to 156/70. Over thepast 24 hours it has been within goal with the exception of 1 reading of 156/70. Blood pressure this morning is 127/80. Heart rate has ranged from 59-85. Maintaining appropriate oxygen saturation on RA Oral intake - FOOD good FLUIDS fair to good Discussed with nursing - no problems that need addressed. Sleeping well at night per nursing. Reviewed the THERAPY notes-making progress Medication list reviewed. HGB this weekend was 13.3? Up from 10.9? Stool is heme + She is on Eliquis. Behzad denies cephalgia, lightheadedness, chest pain, shortness of breath, cough, nausea/vomiting/abdominal pain, dysuria and calf tenderness. She has no complaints today. She is no longer c/o pain in the left lateral foot since we have been using a mepilex pad. Objective Data Objective Data Vital Signs: Vital Signs Temp Pulse Resp BP Pulse Ox O2 Del Method 97.6 F L 85 14 127/80 H 95 Room Air 08/30/24 06:00 08/30/24 07:42 08/30/24 06:00 08/30/24 06:00 08/30/24 06:00 08/30/24 06:00 Oxygen Delivery Method Room Air Weight: 115 lb 8.356 oz Body Mass Index (BMI) 21.1 Intake & Output: Intake and Output for Last 24 Hours 08/28/24 08/29/24 08/30/24 23:59 23:59 23:59 Intake Total 965 / 965 1930 / 1930 360 / 360 Output Total 1000 / 1000 1830 / 1830 1200 / 1200 Balance -35 / -35 100 / 100 -840 / -840 Lab / Micro Data 08/30/24 10:35 08/30/24 10:35 Micro: Microbiology 08/27/24 09:05 Stool Stool Occult Blood (ALONSO) - Final Occult Blood Positive Physical Exam Const alert, oriented x3 and no apparent distress General Appearance: cooperative Resp normal respiratory effort, normal air movement and clear to auscultation bilaterally Resp Narrative: Diminished in the bases. Effort and Inspection: able to speak in complete sentences Cardio no rub and no gallops Cardio Narrative: Irregular irregular rhythm with controlled ventricular response. She has eithera bruit or a MM at the LVOT. Known paroxysmal atrial fibrillation. GI normal to inspection, nondistended, normoactive bowel sounds, soft to palpation and non-tender GI Narrative: No guarding with palpation. 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 Continue therapy 2. BMP and CBC now Charges/Coding Visit Charges Inpatient E&M: 65858 Subs Hosp L1 08/30/24 1409 <Electronically signed by Behzad Dorado DO> Behzad Dorado DO Cosigner Signature (if applicable): CC: ~ Signed ADDENDUM by Dr. Behzad Dorado DO on 08/30/24 at 1411 Addendum Lab drawn this morning was personally reviewed. White blood cell count is 6.6 and the hemoglobin is 12.7 today which is down from 13.3 on 08/27/2024. Platelets are within normal limits. The BUN is 139 with a potassium of 4.2. The BUN is 17, down from 21 on 08/27/2024 and the creatinine is 0.86 which is down from 0.9 on 08/27/2024. I suspect the increase in hemoglobin from 10.9-13.3is due to intravascular volume depletion. She was instructed to increase her fluid intake and she is doing this. No other intervention necessary at this time. 08/30/24 1411 <Electronically signed by Behzad VazquezModesto Radha alexus GOMEZ> Date _ Behzad Dorado TaylorModesto GOMEZ Cosigner Signature (if applicable): Date cc: ~* Signed [facility] Work Phone: 1(348) 626-754205-19-2025 Progress note [facility] Medical Records Department [address] [place] [address] Progress Note 08/30/24 0924 MR#: [id number] Acct: [id number] Name: BEHZAD HAY Rep #:[id number] : 1940 84 From: Behzad Dorado DO PCP: Tasha Deutsch, OUTREACH COORDINATOR Status:ADM IN Location: [place] [address] Subjective Subjective Afebrile VSS -blood pressure over the weekend has ranged from 115/57 to 156/70. Over thepast 24 hours it hasbeen within goal with the exception of 1 reading of 156/70. Blood pressure this morning is 127/80. Heart rate has ranged from 59-85. Maintaining appropriate oxygen saturation on RA Oral intake - FOOD good FLUIDS fair to good Discussed with nursing - no problems that need addressed. Sleeping well at night per nursing. Reviewed the THERAPY notes-making progress Medication list reviewed. HGB this weekend was 13.3? Up from 10.9? Stool is heme + She is on Eliquis. Behzad denies cephalgia, lightheadedness, chest pain, shortness of breath, cough, nausea/vomiting/abdominal pain, dysuria and calf tenderness. She has no complaints today. She is no longer c/o pain in the left lateral foot since we have been using a mepilex pad. Objective Data Objective Data Vital Signs: Vital Signs Temp Pulse Resp BP Pulse Ox O2 Del Method 97.6 F L 85 14 127/80 H 95 Room Air 08/30/24 06:00 08/30/24 07:42 08/30/24 06:00 08/30/24 06:00 08/30/24 06:00 08/30/24 06:00 Oxygen Delivery Method Room Air Weight: 115 lb 8.356 oz Body Mass Index (BMI) 21.1 Intake & Output: Intake and Output for Last 24 Hours 08/28/24 08/29/24 08/30/24 23:59 23:59 23:59 Intake Total 965 / 965 1930 / 1930 360 / 360 Output Total 1000 / 1000 1830 / 1830 1200 / 1200 Balance -35 / -35 100 / 100 -840 / -840 Lab / Micro Data 08/30/24 10:35 08/30/24 10:35 Micro: Microbiology 08/27/24 09:05 Stool Stool Occult Blood (ALONSO) - Final Occult Blood Positive Physical Exam Const alert, oriented x3 and no apparent distress General Appearance: cooperative Resp normal respiratory effort, normal air movement and clear to auscultation bilaterally Resp Narrative: Diminished in the bases. Effort and Inspection: able to speak in complete sentences Cardio no rub and no gallops Cardio Narrative: Irregular irregular rhythm with controlled ventricular response. She has eithera bruit or a MM at the LVOT. Known paroxysmal atrial fibrillation. GI normal to inspection, nondistended, normoactive bowel sounds, soft to palpation and non-tender GI Narrative: No guarding with palpation. 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 Continue therapy 2. BMP and CBC now Charges/Coding Visit Charges Inpatient E&M: 39607 Subs Hosp L1 08/30/24 1409 Behzad Dorado DO Cosigner Signature (if applicable): CC: ~ Signed ADDENDUM by Dr. Behzad Dorado DO on 08/30/24 at 1411 Addendum Lab drawn this morning was personally reviewed. White blood cell count is 6.6 and the hemoglobin is12.7 today which is down from 13.3 on 08/27/2024. Platelets are within normal limits. The BUN is 139with a potassium of 4.2. The BUN is 17, down from 21 on 08/27/2024 and the creatinine is 0.86 which is down from 0.9 on 08/27/2024. I suspect the increase in hemoglobin from 10.9-13.3is due to intravascular volume depletion. She was instructed to increase her fluid intake and she is doing this. No other intervention necessary at this time. 08/30/24 1411 ti DO> Date _ Behzad Doradoer Signature (if applicable): Date cc: ~* Signed [facility]05-19-2025 Telephone encounter Note* Telephone Encounter - Tasha Deutsch APRN.AVIATION ELECTRONIC WARFARE OPERATOR - 08/30/2024 12:39 PM EDT Patient was admitted August 22, 2024 and discharged on August 23, 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 Patient has a past history of chronic renal failure stage IV but recent labs show GFR of 74?, History of A-fib, osteoarthritis, hypertension who presents to the emergency room [facility] August 16 with complaints of confusion. In the emergency room her NIH score was 0. She was awake andalert answering questions and following commands. Blood pressure 164/104. Noncontrast brain CT showed no acute intracranial abnormalities but did show chronic age- related microvascular ischemia. Chest x-ray no acute findings. EKG showed A-fib with a rate of 100. Workup for infection was negative. She was discharged home and told to follow-up with her primary care provider. She returned to the emergency room August 18 with confusion. She also had right arm and leg weakness. Some speech difficulty noted. Blood pressure 187/89. Lab work consistent with urinary tract infection. Blood cultures and urine culture were sent. CTA of the head and neck showed suspicious for acute infarct in the high left parietal lobe and hypodensity in the left caudate nucleus possible secondaryto remote lacunar versus acute ischemic stroke. 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 MRI showed left frontal parietal lobe compatible with MCA distribution infarct. EKG showed normal sinus rhythm. Admitted to the hospital. Teleneurology consult placed and recommended aspirin and Plavix for 3 weeks and then discontinue Plavix and continue aspirin alone. She had A-fib when in the emergency room August 16. No documentation ofprior A-fib. Teleneurology recommended a statin and permissive hypertension for 5 to 7 days. Blood pressure 130/70. Transferred to the acute inpatient rehab at [facility] August 22. She was to have physical therapy 3 hours daily. WBC 6, hemoglobin 10.9, platelets normal. Sodium 141, potassium 4.1, BUN 23, creatinine 0.78. GFR 74. Hemoglobin A1c 5.7. Calcium, phosphorus, magnesium normal. Liver function normal. Urine culture shows E. coli. Blood pressure 125/63 to 162/68. [facility]05-19-2025 Miscellaneous Notes* Telephone Encounter - Tasha Deutsch APRN.CNP - 08/30/2024 12:39 PM EDT Patient was admitted August 22, 2024 and discharged on August 23, 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 Patient has a past history of chronic renal failure stage IV but recent labs show GFR of 74?, History of A-fib, osteoarthritis, hypertension who presents to the emergency room [facility] August 16 with complaints of confusion. In the emergency room her NIH score was 0. She was awake andalert answering questions and following commands. Blood pressure 164/104. Noncontrast brain CT showed no acute intracranial abnormalities but did show chronic age- related microvascular ischemia. Chest x-ray no acute findings. EKG showed A-fib with a rate of 100. Workup for infection was negative. She was discharged home and told to follow-up with her primary care provider. She returned to the emergency room August 18 with confusion. She also had right arm and leg weakness. Some speech difficulty noted. Blood pressure 187/89. Lab work consistent with urinary tract infection. Blood cultures and urine culture were sent. CTA of the head and neck showed suspicious for acute infarct in the high left parietal lobe and hypodensity in the left caudate nucleus possible secondaryto remote lacunar versus acute ischemic stroke. 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 MRI showed left frontal parietal lobe compatible with MCA distribution infarct. EKG showed normal sinus rhythm. Admitted to the hospital. Teleneurology consult placed and recommended aspirin and Plavix for 3 weeks and then discontinue Plavix and continue aspirin alone. She had A-fib when in the emergency room August 16. No documentation ofprior A-fib. Teleneurology recommended a statin and permissive hypertension for 5 to 7 days. Blood pressure 130/70. Transferred to the acute inpatient rehab at [facility] August 22. She was to have physical therapy 3 hours daily. WBC 6, hemoglobin 10.9, platelets normal. Sodium 141, potassium 4.1, BUN 23, creatinine 0.78. GFR 74. Hemoglobin A1c 5.7. Calcium, phosphorus, magnesium normal. Liver function normal. Urine culture shows E. coli. Blood pressure 125/63 to 162/68. [facility] Progress note Author Behzad Dorado [facility] Note Date/Time August 27, 2024 10:09 am [facility] [address] [place] [address] Progress Note 08/26/24 1204 MR#: [id number] Acct: [id number] Name: BEHZAD HAY Rep #:[id number] : 1940 84 From: Behzad VazquezModesto Estrada DO PCP: Tasha Deutsch, OUTREACH COORDINATOR Status:ADM IN Location: [place] [address] Subjective Subjective Behzad was seen on team rounds today. Her family participated by phone. Afebrile VSS -blood pressure over the past 24 hours has ranged from 116/56 to 153/61. The heart rate has ranged from 52-63. She is taking metoprolol 25 mg twice daily. She denies lightheadedness. Maintaining appropriate oxygen saturation on RA Oral intake - FOOD good FLUIDS fair After laxatives she had 4 bowel movements on 08/24/2024 but then had none on 514 and she had 1 today. Discussed with nursing - no problems that need addressed Reviewed the THERAPY notes - scored only 7/30 on MoCA and 58/'100 on the MAST Medication list reviewed. Having trouble with concentration and she is easily distracted. Denies headache, lightheadedness, chest pain, palpitations, shortness of breath, nausea/vomiting/epigastric pain, dysuria and calf pain. Objective Data Objective Data Vital Signs: Vital Signs Temp Pulse Resp BP Pulse Ox O2 Del Method 97.8 F 52 L 15 153/61 H 97 Room Air 08/26/24 06:00 08/26/24 07:57 08/26/24 06:00 08/26/24 06:00 08/26/24 06:00 08/26/24 06:00 Oxygen Delivery Method Room Air Weight: 136 lb 10.986 oz Body Mass Index (BMI) 21.4 Intake & Output: Intake and Output for Last 24 Hours 08/24/24 08/25/24 08/26/24 23:59 23:59 23:59 Intake Total 1270 / 1270 1240 / 1240 710 / 710 Output Total 1250 / 1250 1400 / 1400 750 / 750 Balance -160 / -160 -40 / -40 Lab / Micro Data 08/27/24 05:31 08/27/24 05:31 Physical Exam Const alert General Appearance: cooperative Resp normal respiratory effort, normal air movement and clear to auscultation bilaterally Resp Narrative: Diminished in the bases. Effort and Inspection: able to speak in complete sentences Cardio regular rate, regular rhythm, no rub and no gallops Cardio Narrative: No ectopy. she has either a bruit or a MM at the LVOT. good pulse when I raiseher L arm and she had no tingling with elevation. She is known to have a dilated aortic root. Denies pain in the LUE. GI normal to inspection, nondistended, normoactive bowel sounds, soft to palpation and non-tender GI Narrative: No guarding with palpation. Extremity no calf tenderness and no pedal edema Extremity Narrative: pedal pulses are decreased. 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 No redness and no DC. Some dryness of the heelsbut, no redness or breakdown. Some dependent rubor. 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 Continue therapy 2. Check a Hemoccult stool 3. Recheck an H&H and BMP in the a.m. 4. Encouraged increased fluid intake 5. Recommend a DEXA post Dc from rehab. Charges/Coding Visit Charges Inpatient E&M: 77389 Subs Hosp L2 08/27/24 100 <Electronically signed by Behzad Dorado DO> Behzad Dorado DO Cosigner Signature (if applicable): CC: ~ Signed [facility] Work Phone: [phone] Progress note [facility] Medical Records Department [address] [place] [address] Progress Note 08/26/24 1204 MR#: [id number] Acct: [id number] Name: BEHZAD HAY Rep #:[id number] : 1940 84 From: Behzad Dorado DO PCP: Tasha Deutsch, OUTREACH COORDINATOR Status:ADM IN Location: [place] [address] Subjective Subjective Behzad was seen on team rounds today. Her family participated by phone. Afebrile VSS -blood pressure over the past 24 hours has ranged from 116/56 to 153/61. The heart rate has ranged from 52-63. She is taking metoprolol 25 mg twice daily. She denies lightheadedness. Maintaining appropriate oxygen saturation on RA Oral intake - FOOD good FLUIDS fair After laxatives she had 4 bowel movements on 08/24/2024 but then had none on 514 and she had 1 today. Discussed with nursing - no problems that need addressed Reviewed the THERAPY notes - scored only 7/30 on MoCA and 58/'100 on the MAST Medication list reviewed. Having trouble with concentration and she is easily distracted. Denies headache, lightheadedness, chest pain, palpitations, shortness of breath, nausea/vomiting/epigastric pain, dysuria and calf pain. Objective Data Objective Data Vital Signs: Vital Signs Temp Pulse Resp BP Pulse Ox O2 Del Method 97.8 F 52 L 15 153/61 H 97 Room Air 08/26/24 06:00 08/26/24 07:57 08/26/24 06:00 08/26/24 06:00 08/26/24 06:00 08/26/24 06:00 Oxygen Delivery Method Room Air Weight: 136 lb 10.986 oz Body Mass Index (BMI) 21.4 Intake & Output: Intake and Output for Last 24 Hours 08/24/24 08/25/24 08/26/24 23:59 23:59 23:59 Intake Total 1270 / 1270 1240 / 1240 710 / 710 Output Total 1250 / 1250 1400 / 1400 750 / 750 Balance -160 / -160 -40 / -40 Lab / Micro Data 08/27/24 05:31 08/27/24 05:31 Physical Exam Const alert General Appearance: cooperative Resp normal respiratory effort, normal air movement and clear to auscultation bilaterally Resp Narrative: Diminished in the bases. Effort and Inspection: able to speak in complete sentences Cardio regular rate, regular rhythm, no rub and no gallops Cardio Narrative: No ectopy. she has either a bruit or a MM at the LVOT. good pulse when I raiseher L arm and she hadno tingling with elevation. She is known to have a dilated aortic root. Denies pain in the LUE. GI normal to inspection, nondistended, normoactive bowel sounds, soft to palpation and non-tender GI Narrative: No guarding with palpation. Extremity no calf tenderness and no pedal edema Extremity Narrative: pedal pulses are decreased. 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 No redness and no DC. Some dryness of the heelsbut, no redness or breakdown. Some dependent rubor. 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 Continue therapy 2. Check a Hemoccult stool 3. Recheck an H&H and BMP in the a.m. 4. Encouraged increased fluid intake 5. Recommend a DEXA post Dc from rehab. Charges/Coding Visit Charges Inpatient E&M: 94173 Subs Hosp L2 08/27/24 1007 Behzad C. Sementi DO Cosigner Signature (if applicable): CC: ~ Signed [facility]05-15-2025 History and physical note Author Behzad Dorado [facility] Note Date/Time August 26, 2024 12:24 pm [facility] Medical Records Department [address] [place] [address] Post Admission Physician Austyn 08/23/24 1151 MR#: [id number] Acct: [id number] Name: BEHZAD HAY Rep #:[id number] : 1940 84 From: Behzad VazquezModesto Estrada PCP: Tasha Deutsch, OUTREACH COORDINATOR Status:ADM IN Location: [place] [address] Admission Information Primary Diagnosis:: POST STROKE DEBILITY Status Changes from Prescreening?: No changes Identified Actual Problem List:: UTI, Skin Intergrity, Cognitve Impr/Memory Loss, Bladder Incontinence, Mobility Impaired, Self Care Deficit, Know.Dfct/Disease Process, BP, Hypertension and Alteration-Leisure Activ. Potential Problem List:: DVT, Bleeding, Infection, UTI, Aspiration, Falls, Skin Integrity and Depression Risk of Complications DVT: ANY Hose and - (Apixaban 2.5 mg twice daily) Bleeding: Monitor Lab Values, Nursing to Teach Precautions for anti-coagulation therapy., Wound, if applicable, to be assessed every shift. and Stroke patients assessed for lethargy or change in status. Infection: Clinical Staff to Monitor for S/S of infection: and S/S of infection include fever, redness, warmth, etc. Urinary Tract Infection: Monitor for frequency, burning, discomfort, or incontinence. and Nursing will obtain urine sample for urinalysis and C&S when ordered. Aspiration: Clinical staff will monitor for coughing, drooling, congestion., Speech will evaluate swallowing and dsyphasia. and Nursing will monitor patient swallowing during meals. Falls: Patient will be evaluated for Fall Precautions and Patient will be placedon Fall Precautions as indicated per protocol. Skin Breakdown: Nursing will assess skin daily using assessment tool. and Nursing will place on Skin Breakdown Precautions as indicated. Pain: Clinical staff will assess patient's pain level per protocol., Medicationswill be given, if needed, and the pain level reassessed. and Other methods: Massage, distraction, decrease stimulus, etc. used PRN. Plan of Care Patient requires physician specializing in physical medicine and rehab oversightto provide close medical supervision of rehab issues including: Pain Management,Sleep Problems, Bowel and Bladder, Medical and co-morbidity Management, DVT prophylaxis, Rehabilitation Leadership and Coordination of treatment team Patient needs Physical Therapy: For a minimum of 1 hour and At least 5 out of 7 days Patient needs Physical Therapy to improve:: Mobility, Strengthening, Transfers, Stretching, ROM, Endurance, Stairs, Gait and Balance Patient needs Occupational Therapy: For a minimum of 1 hour and At least 5 out of 7 days Patient needs Occupational Therapy to improve ADL's incl.: Eating, Grooming, Bathing, Dressing, Toileting, Toilet transfers, Community Reintegration, Higher functioning activities, Household tasks, Adaptive Equipment, Splinting and Otheractivities as determined Patient requires speech therapy: For a minimum of 1 hour and At least 5 out of 7days Patient requires speech therapy for: Swallowing, Cognition, Language Skills and Compensatory Strategies Patient requires 24/7 Rehabilitation Nursing for: Pain Issues, Identifying and preventing risk factors, Monitoring and reporting current medical conditions, Assisting with ambulation, transfer, and all ADL's, Teaching patients about disease process and medications, Family teaching, Providing safe environment, Bowel and Bladder Issues, Skin integrity and Medication Management Patient needs Rn Ccu/ Case Management for: Discharge Planning, Arranging Home Equipment or Services and Family Interventions Patient needs Dietary and Nutrition Services for: Adequate Nutrition, Nutritional Supplements and Nutritional Education Goals Goals Patient will remain: free from falls Patient will perform eating at: MOD I level of assist. Patient will perform bed mobility at: MOD I level of assist. Patient will complete transfers from bed to chair at: - (Supervision) Patient will ambulate: - (400 feet with rollator walker on various surfaces at supervision) Patient will complete upper body dressing at: - (Set up) Patient will complete lower body dressing at: - (Supervision with adaptive equipment as needed) Patient will complete toilet transfer at: - (Supervision) Patient will complete toileting at: - (Supervision) Patient will perform bathing at: - (Upper body bathing at set up and lower body bathing at supervision with adaptive equipment as needed) Patient will perform Tub/Shower transfer at: - (Supervision) Patient will complete grooming at: - (Supervision while standing at the sink) Patient will achieve: - (1 curb step was 2 handrails to allow access to her homeentrance) Patient will have pain level of: of 3 or less Patient's skin will: remain intact Patient will receive: adequate nutrition. Discharge Planning Pt Prognosis for Sig. Practical Improv. w/in Reasonable Time: Good Estimated Length of stay (days): 21 Anticipated D/C Destination: Assisted Living Facility (suspected she will need assisted living or home with family - Needing supervision with ADL's now for bathing, dressing, toileting) Was Preadmission Assessment Accurate?: Yes 08/26/24 1224 <Electronically signed by Behzad Dorado DO> Cosigner Signature (if applicable): CC: ~ Signed [facility] Work Phone: 1(343) 453-225005-15-2025 History and physical note Author Behzad Dorado [facility] Note Date/Time August 26, 2024 12:02 pm [facility] Medical Records Department [address] [address] History & Physical Exam 08/23/24 1126 MR#: [id number] Acct: [id number] Name: BEHZAD HAY Rep #:[id number] : 1940 84 From: Behzad Dorado DO PCP: Tasha Deutsch, OUTREACH COORDINATOR Status:ADM IN Location: [place] [address] HPI - General General Date of Admission: 08/22/24 Date of Service: 08/23/24 Chief Complaint: POST STROKE DEBILITY HPI Narrative BEHZAD HAY, is a 84-year-old F with a past medical history of chronic renal failure stage IV (recent lab with GFR of 74?), history of atrial fibrillation, osteoarthritis and hypertension who presented to the emergency department at [facility] on 08/16/2024 with complaints of confusion. She had previous episodes of confusion but, the family felt this was worse. In the emergency department her NIH was 0 and she was awake, alert and answering questions and following commands. Initial blood pressure was elevated at 164/104. A noncontrast brain CT showed no acute intracranial abnormalities but did show chronic age- related microvascular ischemic changes. Chest x-ray had no acute findings. EKG showed atrial fibrillation with a rate of 100. Workup for infection was negative. She was discharged home and told tofollow-up with her primary care provider. She and the family were instructed toreturn to the emergency department if continued confusion. She returned to the emergency department on 08/18/2024 with continued confusion and weakness of the right arm and leg. Some speech difficulty was also noted. Blood pressure was elevated at 187/89. Lab work was consistent with urinary tract infection. Blood cultures and urine culture were sent. CTA of head and neck showed findings suspicious for acute infarct along the high left parietal lobe and hypodensity in the left caudate nucleus possibly secondary to remote lacunar infarct versus acute ischemia. 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 There was fairly prominent intracranial atherosclerosis with diffuse irregularity and moderate/severe stenoses throughout the small intracranial vasculature. 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 An MRI of the brain was done and showed an acute infarct in the left frontal parietal lobecompatible with an MCA distribution infarct. EKG showed normal sinus rhythm. She was admitted to the hospitalist service. Total cholesterol was 189 and LDL was 112. Triglycerides were normal at 75 and the HDL was good at 62. TSH is 1.6. She was started on ceftriaxone for urinary tract infection pending the results of blood and urine culture. A transthoracic echocardiogram showed the left ventricular systolic function to be normal with an ejection fraction of 65%. The right ventricle was normal. The left atrium was mildly enlarged with a normal right atrium. There was no significant valvular heart disease and diastolic function was indeterminate. No bubble study was done. Teleneurology was consulted and recommended aspirin and Plavix for 3 weeks and then discontinuing Plavix and continuing aspirin alone. She had atrial fibrillation when in the emergency room on 08/16/2024. There was no documentation of A-fib prior to this. Neurology recommended event monitor at discharge from the hospital. They recommended a statin and permissive hypertension for the next 5 to 7 days but good blood pressure control, less than 130/70, following the firstweek. She was transferred to the acute inpatient rehab unit at [facility] on 08/22/2024 for 3 hours of therapy daily to restore function/independence at or near her level prior to the stroke. She did not seecardiology while in the hospital. All lab drawn this morning was personally reviewed. White blood cell count is normal at 6 and the hemoglobin is 10.9 and stable. Platelets are within normal limits. Sodium is 141 and the potassium is 4.1. The BUN is 23 with a creatinine of 0.78 which is stable. GFR today is 74 with a creatinine clearanceof 39.9. Hemoglobin A1c was 5.7 which is very mildly elevated. Calcium, phosphorus and magnesium were all within normal limits and LFTs are unremarkable. Urine culture grew 80,000 100,000 colonies of E. coli that was pansensitive except it was intermediately sensitive to ciprofloxacin. Blood cultures had no growth. She received 5 days of appropriate antibiotics for treatment of simple cystitis. Postvoid residuals have been 150 and 192. Blood pressure since arrival on rehab has ranged from 125/63 to 162/68. The heart rate is ranged from 54-77. She is maintaining appropriate oxygen saturation on room air. She lives alone in an apartment/condo. She has a tub shower. Prior to the stroke was independent with basic activities of daily living. 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 [facility] Medical History HTN (hypertension) Thoracic kyphosis Cystitis Stroke/cerebrovascular accident CKD (chronic kidney disease) stage 4, GFR 15-29 ml/min History of atrial fibrillation Fe deficiency anemia Osteoarthritis Home Medications ?Medication ?Instructions ?Recorded ?Last Taken ?Type lisinopril 30 mg tablet 30 mg PO DAILY bp 08/16/24 0 08/18/24 History multivitamin (Daily Multi-Vitamin 1 tab PO DAILY supp 08/16/24 08/18/24 History tablet) acetaminophen 325 mg tablet 650 mg (2 x 325 mg) PO Q4H PRN PRN 08/22/24 Unknown Rx Pain 1-10 Or Fever>99.6 #0 tabs apixaban 5 mg tablet (Eliquis) 2.5 mg (1/2 x 5 mg) PO BID blood 08/22/24 Unknown Rx thinner #0 tabs atorvastatin 40 mg tablet 40 mg PO QHS cholesterol #1 TAB 08/22/24 Unknown Rx cephalexin 500 mg capsule 500 mg PO Q12 atb #2 caps Unknown Rx melatonin 3 mg tablet 3 mg PO QHS Insomnia 5 Unknown History metoprolol tartrate 50 mg tablet 25 mg (1/2 x 50 mg) P O BID bp #0 08/22/24 Unknown Rx tabs sennosides 8.6 mg-docusate sodium 2 tab PO BID Constip ation 08/22/24 Unknown History 50 mg tablet (Stimulant Laxative Plus) Allergy/AdvReac Type Severity Reaction Status Date / Time nitrofurantoin (From Allergy Rash Verified 08/18/24 09:54 Macrobid) Surgical History Hx of tonsillectomy Social History (Updated 08/26/24 @ 11:[address] Behzad Dorado DO) household members: none [facility] Smoking Status: Never smoker alcohol intake: never substance use type: does not use ROS Review of Systems ROS Unobtainable: Denies due to encephalopathy, due to endotracheal tube, due tomental condition or due to mental status Constitutional Constitutional: Denies anorexia, change in weight, chills, fatigue, fever(s), night sweats or weakness Eyes Eyes: Denies blurry vision, change in vision, eye pain or loss of vision ENT HEENT: Denies abnormal hearing, dysphagia, headache(s), hearing loss, nasal congestion or sore throat Cardiovascular Cardiovascular: Denies chest pain, dyspnea on exertion, edema, lightheadedness, orthopnea, palpitations, paroxysmal nocturnal dyspnea or syncope Respiratory/Chest Respiratory/Chest: Denies cough, dyspnea, shortness of breath at rest, shortnessof breath with exertion or wheezing Gastrointestinal Gastrointestinal: Reports constipation; Denies abdominal pain, diarrhea, dyspepsia, hematemesis, hematochezia, nausea or vomiting Genitourinary Genitourinary: Denies dysuria, hematuria, nocturia, urinary frequency, urinary hesitancy, urinary incontinence or urinary urgency Musculoskeletal Musculoskeletal: Denies back pain, joint pain, joint swelling or neck pain Neurologic Neurologic: Reports confusion, focal weakness and weakness; Denies disequilibrium, dizziness, headache(s), loss of vision, paresthesias, seizures or tremor(s) Psychiatric Psychiatric: Denies anxiety, depression, homicidal ideation or suicidal ideation Endocrine Endocrinology: Denies change in body appearance, polydipsia or polyuria Hematologic/Lymphatic Hematologic/Lymphatic: Denies easy bleeding, easy bruising or lymphadenopathy Allergic/Immunologic Allergic/Immunologic: Denies rhinitis, eczemia or asthma Vital Signs Vital Signs Vital Signs: 08/22/24 14:59 08/22/24 17:46 08/22/24 21:22 Temperature 96.8 F L 97.4 F L Temperature Source Oral Oral Pulse Rate 56 L 77 62 Respiratory Rate 17 17 Respiratory Effort Respiratory Depth Respiratory Pattern Blood Pressure 131/66 H 125/63 H 142/70 H Blood Pressure Mean 87 83 Blood Pressure Source Monitor Monitor Blood Pressure Position Sitting Semi-Fowlers Blood Pressure Location Right Arm Left Arm Pulse Ox 96 96 Oxygen Delivery Method Room Air Room Air 08/22/24 21:41 08/23/24 02:55 08/23/24 07:50 Temperature 97.5 F L Temperature Source Oral Pulse Rate 54 L 68 Respiratory Rate 20 H Respiratory Effort Normal Non-Labored Respiratory Depth Normal Respiratory Pattern Normal Blood Pressure 162/68 H Blood Pressure Mean 99 Blood Pressure Source Monitor Blood Pressure Position Semi-Fowlers Blood Pressure Location Left Arm Pulse Ox 98 Oxygen Delivery Method Room Air Room Air Weight Weight: 136 lb 10.986 oz Body Mass Index (BMI) 21.4 Indicators for Scoring Admitted with or Primary Diagnosis of CVA/Stroke: Yes Hx of CVA/Stroke: Yes Modified Jessica Score MRS Score at time of Evaluation: 4-Moderate/severe disability NIHSS NIHSS 1a. Level of Consciousness: 0 - Alert; keenly responsive 1b. LOC Questions: 2 - Answers NEITHER question correctly 1c. LOC Commands: 1 - Performs ONE task correctly 2. Best Gaze: 0 - Normal 3. Visual: 0 - No visual loss 4. Facial Palsy: 1 - Minor paralysis (flattened nasolabial fold, asymmetry on smiling) 5a. Left Arm: 0 - No drift; arm holds 90 (or 45) degrees for full 10 seconds 5b. Right Arm: 1 - Drift; arm drifts downward but doesn?t hit the bed (pronator drift with the RUE also) 6a. Left Le - No drift; leg holds 30-degree position for full 5 seconds 6b. Right Le - No drift; leg holds 30-degree position for full 5 seconds 7. Limb Ataxia: 2 - Present in 2 limbs (R arm and leg) 8. Sensory: 0 - Normal; no sensory loss 9. Best Language: 1 - Iday-vt-wjxvhyyt aphasia; (trouble word finding and also trouble following commands. Able to read all the words on NIHSS scoring and allthe sentences. able to tell me what was going on in the picture and name all the objects.) 10. Dysarthria: 1 = Jnow-[id number] dysarthria; 11. Extinction and Inattention: 1 - Visual, tactile, auditory, spatial, or personal inattention; (No visual exticntion. Difficult to tell if she had tactile extinction.......she was unable to understand what I was asking her to do and then became overwhelmed. ) Total: 10 Stroke Questions Stroke Team Activated: No Physical Exam Const alert Constitutional Narrative: Oriented to the year and where she is is and to person. could not tell me her age or the month. Knows that she is here for a stroke. Able to follow some simple commands and not others......I needed to give verbal and visual cues and at times needed physical cuing to show her what I was asking her to do. General Appearance: cooperative, comfortable, well kempt and well developed HEENT head/scalp atraumatic and hearing grossly normal bilaterally HEENT Narrative: MM are dry. NO evidence of thrush. Tongue deviates a little to the R when protruded. Eyes PERRL, EOMs intact bilaterally, conjunctivae normal and no scleral icterus Eyes Narrative: No discharge from the eyes and no mattering of the eyelashes Neck supple, No nodes and no carotid bruits General: trachea midline Chest Chest: symmetrical chest wall rise Resp normal respiratory effort and normal air movement Resp Narrative: initially had crackles in both bases but, after several deep breaths the lungs were CTA with good air exchange. No wheezing and she is not tachypneic. Effort and Inspection: able to speak in complete sentences Cardio regular rate, regular rhythm, S1 normal heart sound, S2 normal heart sound, no rub and no gallops Cardio Narrative: No ectopy. she has either a bruit or a MM at the LVOT. good pulse when I raiseher L arm and she had no tingling with elevation. She is known to have a dilated aortic root. Denies pain in the LUE. GI normal to inspection, nondistended, normoactive bowel sounds, soft to palpation and non-tender GI Narrative: No guarding with palpation. no CVA tenderness Narrative: Denies dysuria. C/O urinary urge incontinence that predated the CVA. Back/Spine no CVA tenderness Back/Spine Narrative: She has kyphosis. Extremity no calf tenderness and no pedal edema Extremity Narrative: pedal pulses are decreased. 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 No redness and no DC. Some dryness of the heelsbut, no redness or breakdown. Some dependent rubor. Skin Rashes: no rashes Hair: normal Neuro Neuro Narrative: Alert. Oriented to person and after a few tries could tell me the year. She knows where she is and why she is here. Having a hard time following simple commands at times. Needed visual, verbal and physical cues. Very mild right facial droop. Tongue deviates a small amount to the right side. The palate elevates symmetrically. Decreased shoulder shrug on the right. No visual fieldcuts. No visual extinction. Mild decrease in strength with a slight amount of drift in the right upper extremity. She has pronator drift with the right upperextremity and is unable to use her hand efficiently to feed herself. No drift in the left upper extremity with good strength. She has ataxia with the right upper extremity and the right lower extremity. Could not adequately test for tactile extinction because she is unable to understand what I want her to do. No sensory loss. Having a lot of difficulty with word finding at times. Familyhas noticed the confusion more than anything else. No tremors. Psych cooperative, affect normal, denies hallucinations, denies homicidal ideation anddenies suicidal ideation Appearance: grossly normal, appropriate and well kempt Attitude: calm, engaged, No withdrawn, No uncooperative and No agitated Activity / Motor Behavior: appropriate eye contact; Negative for psychomotor agitation or psychomotor slowing Results Lab / Micro Data 08/23/24 05:14 08/23/24 05:14 Labs: Laboratory Results - last 24 hr 08/23/24 05:14: WBC 6.0, RBC 3.53 L, Hgb 10.9 L, Hct 34.9 L, MCV 98.9, MCH 30.9,MCHC 31.2 L, RDW Std Deviation 46.1 H, RDW Coeff of Dalton 12.8, Plt Count 246, MPV9.5, Sodium 141, Potassium 4.1, Chloride 108, Carbon Dioxide 22.6, Anion Gap 10,BUN 23 H, Creatinine 0.78, Estim Creat Clear Calc 39.92 L, Est GFR (MDRD) Non-Af74, BUN/Creatinine Ratio 29.6 H, Glucose 101 H, Calcium 9.3, Phosphorus 3.9, Magnesium 2.1, Total Bilirubin 0.23, AST 28, ALT 18, Alkaline Phosphatase 74, Total Protein 6.0, Albumin 3.4, Globulin 2.6, Albumin/Globulin Ratio 1.3 Assessment & Plan Assessment/Plan (1) Debility: (2) Ischemic cerebrovascular accident (CVA): (3) Aphasia complicating stroke: (4) Acute right-sided weakness: (5) 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: (6) Ataxia due to acute cerebrovascular disease: (7) Dysarthria: (8) Paroxysmal atrial fibrillation: (9) Chronic anticoagulation: (10) HTN (hypertension): QUALIFIERS: Hypertension type: primary hypertension Qualified Code(s): I10 - Essential (primary) hypertension (11) Dyslipidemia: (12) Thoracic kyphosis: QUALIFIERS: Kyphosis type: unspecified Qualified Code(s): M40.204- Unspecified kyphosis, thoracic region (13) Normochromic normocytic anemia: PLAN: Plan PLAN PT for gait stability OT for ADL's ST for evaluation Analgesics as needed Bowel protocol Fall precautions Assess for Anxiety/Depression GI prophylaxis -not necessary at this time. She denies nausea/vomiting/epigastric pain/heartburn DVT prophylaxis -continue apixaban 2.5 mg twice daily for chronic anticoagulation for paroxysmal atrial fibrillation. Follow up with PCP, cardiology and neurology following DC from IP Rehab AM lab including CMP, CBC, Mag and Phos - all personally reviewed. Laxatives given for constipation and started on stool softeners. Not on vitamin D or calcium. vitamin D level is borderline low at 35. Will adda vitamin D supplement to the drug regimen. Ask pt and family if she has ever had a DEXA........she has increased kyphosis and bone demineralization on the CXR done recently Repeat lipids and a liver panel in 6 weeks. she has finished an appropriate course of antibiotics for UTI. Charges/Coding Visit Charges Inpatient E&M: 55896 Init Hosp L3 08/26/24 1202 <Electronically signed by Behzad Dorado DO> Cosigner Signature (if applicable): CC: GARFIELD Deutsch; Dr. Behzad Dorado, DO~ Signed [facility] Work Phone: [phone] History and physical note [facility] Medical Records Department [address] [place] [address] Post Admission Physician Austyn 08/23/24 1151 MR#: [id number] Acct: [id number] Name: BEHZAD HAY Rep #:[id number] : 1940 84 From: Behzad Dorado DO PCP: Tasha Deutsch, OUTREACH COORDINATOR Status:ADM IN Location: [place] [address] Admission Information Primary Diagnosis:: POST STROKE DEBILITY Status Changes from Prescreening?: No changes Identified Actual Problem List:: UTI, Skin Intergrity, Cognitve Impr/Memory Loss, Bladder Incontinence, Mobility Impaired, Self Care Deficit, Know.Dfct/Disease Process, BP, Hypertension and Alteration-Leisure Activ. Potential Problem List:: DVT, Bleeding, Infection, UTI, Aspiration, Falls, Skin Integrity and Depression Risk of Complications DVT: ANY Hose and - (Apixaban 2.5 mg twice daily) Bleeding: Monitor Lab Values, Nursing to Teach Precautions for anti-coagulation therapy., Wound, ifapplicable, to be assessed every shift. and Stroke patients assessed for lethargy or change in status. Infection: Clinical Staff to Monitor for S/S of infection: and S/S of infection include fever, redness, warmth, etc. Urinary Tract Infection: Monitor for frequency, burning, discomfort, or incontinence. and Nursing will obtain urine sample for urinalysis and C&S when ordered. Aspiration: Clinical staff will monitor for coughing, drooling, congestion., Speech will evaluate swallowing and dsyphasia. and Nursing will monitor patient swallowing during meals. Falls: Patient will be evaluated for Fall Precautions and Patient will be placedon Fall Precautionsas indicated per protocol. Skin Breakdown: Nursing will assess skin daily using assessment tool. and Nursing will place on Skin Breakdown Precautions as indicated. Pain: Clinical staff will assess patient's pain level per protocol., Medicationswill be given, if needed, and the pain level reassessed. and Other methods: Massage, distraction, decrease stimulus, etc. used PRN. Plan of Care Patient requires physician specializing in physical medicine and rehab oversightto provide close medical supervision of rehab issues including: Pain Management,Sleep Problems, Bowel and Bladder, Medical and co-morbidity Management, DVT prophylaxis, Rehabilitation Leadership and Coordination of treat ment team Patient needs Physical Therapy: For a minimum of 1 hour and At least 5 out of 7 days Patient needs Physical Therapy to improve:: Mobility, Strengthening, Transfers, Stretching, ROM, Endurance, Stairs, Gait and Balance Patient needs Occupational Therapy: For a minimum of 1 hour and At least 5 out of 7 days Patient needs Occupational Therapy to improve ADL's incl.: Eating, Grooming, Bathing, Dressing, Toileting, Toilet transfers, Community Reintegration, Higher functioning activities, Household tasks, Adaptive Equipment, Splinting and Otheractivities as determined Patient requires speech therapy: For a minimum of 1 hour and At least 5 out of 7days Patient requires speech therapy for: Swallowing, Cognition, Language Skills and Compensatory Strategies Patient requires 24/7 Rehabilitation Nursing for: Pain Issues, Identifying and preventing risk factors, Monitoring and reporting current medical conditions, Assisting with ambulation, transfer, and all ADL's, Teaching patients about disease process and medications, Family teaching, Providing safe environment, Bowel and Bladder Issues, Skin integrity and Medication Management Patient needs Rn Ccu/ Case Management for: Discharge Planning, Arranging Home Equipment orServices and Family Interventions Patient needs Dietary and Nutrition Services for: Adequate Nutrition, Nutritional Supplements and Nutritional Education Goals Goals Patient will remain: free from falls Patient will perform eating at: MOD I level of assist. Patient will perform bed mobility at: MOD I level of assist. Patient will complete transfers from bed to chair at: - (Supervision) Patient will ambulate: - (400 feet with rollator walker on various surfaces at supervision) Patient will complete upper body dressing at: - (Set up) Patient will complete lower body dressing at: - (Supervision with adaptive equipment as needed) Patient will complete toilet transfer at: - (Supervision) Patient will complete toileting at: - (Supervision) Patient will perform bathing at: - (Upper body bathing at set up and lower body bathing at supervision with adaptive equipment as needed) Patient will perform Tub/Shower transfer at: - (Supervision) Patient will complete grooming at: - (Supervision while standing at the sink) Patient will achieve: - (1 curb step was 2 handrails to allow access to her homeentrance) Patient will have pain level of: of 3 or less Patient's skin will: remain intact Patient will receive: adequate nutrition. Discharge Planning Pt Prognosis for Sig. Practical Improv. w/in Reasonable Time: Good Estimated Length of stay (days): 21 Anticipated D/C Destination: Assisted Living Facility (suspected she will need assisted living or home with family - Needing supervision with ADL's now for bathing, dressing, toileting) Was Preadmission Assessment Accurate?: Yes 08/26/24 1224 Cosigner Signature (if applicable): CC: ~ Signed [facility]05-15-2025 History and physical note [facility] Medical Records Department [address] [place] [address] History & Physical Exam 08/23/24 1126 MR#: [id number] Acct: [id number] Name: BEHZAD HAY Rep #:[id number] : 1940 84 From: Behzad Dorado DO PCP: Tasha Deutsch, OUTREACH COORDINATOR Status:ADM IN Location: [address] HPI - General General Date of Admission: 08/22/24 Date of Service: 08/23/24 Chief Complaint: POST STROKE DEBILITY HPI Narrative BEHZAD HAY, is a 84-year-old F with a past medical history of chronic renal failure stage IV (recent lab with GFR of 74?), history of atrial fibrillation, osteoarthritis and hypertension who presented to the emergency department at [facility] on 08/16/2024 with complaints of confusion. She had previous "episodes of confusion but, the family felt this was worse. In the emergencydepartment her NIH was 0 and she was awake, alert and answering questions and following commands. Initial blood pressure was elevated at 164/104. A noncontrast brain CT showed no acute intracranial abnormalities but did show chronic age-related microvascular ischemic changes. Chest x-ray had no acute findings. EKG showed atrial fibrillation with a rate of 100. Workup for infection was negative. She was discharged home and told tofollow-up with her primary care provider. She and the family were instructed toreturn to the emergency department if continued confusion. She returned to the emergency department on 08/18/2024 with continued confusion and weakness of the right arm and leg. Some speechdifficulty was also noted. Blood pressure was elevated at 187/89. Lab work was consistent with urinary tract infection. Blood cultures and urine culture were sent. CTA of head and neck showed findings suspicious for acute infarct along the high left parietal lobe and hypodensity in the left caudatenucleus possibly secondary to remote lacunar infarct versus acute ischemia. 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 There was fairly prominent intracranial atherosclerosis with diffuse irregularity and moderate/severe stenoses throughout the small intracranial vasculature. 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 An MRI of the brain was done and showed an acute infarct in the left frontal parietal lobecompatible with an MCA distribution infarct. EKG showed normal sinus rhythm. She was admitted to the hospitalist service. Total cholesterol was 189 and LDL was 112. Triglycerides were normal at 75 and the HDL was good at 62. TSH is 1.6. She was started on ceftriaxone for urinary tract infection pending the results of blood and urine culture. A transthoracic echocardiogram showed the left ventricular systolic function to be normal with an ejection fraction of 65%. The right ventricle was normal. The left atrium was mildly enlarged with a normal right atrium. There was no significant valvular heart disease and diastolic function was indeterminate. No bubble study was done. Teleneurology was consulted and recommended aspirin and Plavix for 3 weeks and then discontinuing Plavix and c ontinuing aspirin alone. She had atrial fibrillation when in the emergency room on 08/16/2024. There was no documentation of A-fib prior to this. Neurology recommended event monitor at discharge from the hospital. They recommended a statin and permissive hypertension for the next 5 to 7 days but goodblood pressure control, less than 130/70, following the firstweek. She was transferred to the acuteinpatient rehab unit at [facility] on 08/22/2024 for 3 hours of therapy daily to restore function/independence at or near her level prior to the stroke. She did not seecardiology whilein the hospital. All lab drawn this morning was personally reviewed. White blood cell count is normal at 6 and the hemoglobin is 10.9 and stable. Platelets are within normal limits. Sodium is 141 and the potassium is4.1. The BUN is 23 with a creatinine of 0.78 which is stable. GFR today is 74 with a creatinine clearanceof 39.9. Hemoglobin A1c was 5.7 which is very mildly elevated. Calcium, phosphorus and magnesium were all within normal limits and LFTs are unremarkable. Urine culture grew 80,000 100,000 colonies of E. coli that was pansensitive except it was intermediately sensitive to ciprofloxacin. Blood cultures had no growth. She received 5 days of appropriate antibiotics for treatment of simple cystitis. Postvoid residuals have been 150 and 192. Blood pressure since arrival on rehab has ranged from 125/63 to 162/68. The heart rate is ranged from 54-77. She is maintaining appropriate oxygen saturation on room air. She lives alone in an apartment/condo. She has a tub shower. Prior to the stroke was independent with basic activities of daily living. 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 [facility] Medical History HTN (hypertension) Thoracic kyphosis Cystitis Stroke/cerebrovascular accident CKD (chronic kidney disease) stage 4, GFR 15-29 ml/min History of atrial fibrillation Fe deficiency anemia Osteoarthritis Home Medications ?Medication ?Instructions ?Recorded ?Last Taken ?Type lisinopril 30 mg tablet 30 mg PO DAILY bp 08/16/24 0 08/18/24 History multivitamin (Daily Multi-Vitamin 1 tab PO DAILY supp 08/16/24 08/18/24 History tablet) acetaminophen 325 mg tablet 650 mg (2 x 325 mg) PO Q4H PRN PRN 08/22/24 Unknown Rx Pain 1-10 Or Fever>99.6 #0 tabs apixaban 5 mg tablet (Eliquis) 2.5 mg (1/2 x 5 mg) PO BID blood 08/22/24 Unknown Rx thinner #0 tabs atorvastatin 40 mg tablet 40 mg PO QHS cholesterol #1 TAB 08/22/24 Unknown Rx cephalexin 500 mg capsule 500 mg PO Q12 atb #2 caps Unknown Rx melatonin 3 mg tablet 3 mg PO QHS Insomnia 5 Unknown History metoprolol tartrate 50 mg tablet 25 mg (1/2 x 50 mg) P O BID bp #0 08/22/24 Unknown Rx tabs sennosides 8.6 mg-docusate sodium 2 tab PO BID Constip ation 08/22/24 Unknown History 50 mg tablet (Stimulant Laxative Plus) Allergy/AdvReac Type Severity Reaction Status Date / Time nitrofurantoin (From Allergy Rash Verified 08/18/24 09:54 Macrobid) Surgical History Hx of tonsillectomy Social History (Updated 08/26/24 @ 11:[address] Behzad Dorado DO) household members: none [facility] Smoking Status: Never smoker alcohol intake: never substance use type: does not use ROS Review of Systems ROS Unobtainable: Denies due to encephalopathy, due to endotracheal tube, due tomental condition ordue to mental status Constitutional Constitutional: Denies anorexia, change in weight, chills, fatigue, fever(s), night sweats or weakness Eyes Eyes: Denies blurry vision, change in vision, eye pain or loss of vision ENT HEENT: Denies abnormal hearing, dysphagia, headache(s), hearing loss, nasal congestion or sore throat Cardiovascular Cardiovascular: Denies chest pain, dyspnea on exertion, edema, lightheadedness, orthopnea, palpitations, paroxysmal nocturnal dyspnea or syncope Respiratory/Chest Respiratory/Chest: Denies cough, dyspnea, shortness of breath at rest, shortnessof breath with exertion or wheezing Gastrointestinal Gastrointestinal: Reports constipation; Denies abdominal pain, diarrhea, dyspepsia, hematemesis, hematochezia, nausea or vomiting Genitourinary Genitourinary: Denies dysuria, hematuria, nocturia, urinary frequency, urinary hesitancy, urinary incontinence or urinary urgency Musculoskeletal Musculoskeletal: Denies back pain, joint pain, joint swelling or neck pain Neurologic Neurologic: Reports confusion, focal weakness and weakness; Denies disequilibrium, dizziness, headache(s), loss of vision, paresthesias, seizures or tremor(s) Psychiatric Psychiatric: Denies anxiety, depression, homicidal ideation or suicidal ideation Endocrine Endocrinology: Denies change in body appearance, polydipsia or polyuria Hematologic/Lymphatic Hematologic/Lymphatic: Denies easy bleeding, easy bruising or lymphadenopathy Allergic/Immunologic Allergic/Immunologic: Denies rhinitis, eczemia or asthma Vital Signs Vital Signs Vital Signs: 08/22/24 14:59 08/22/24 17:46 08/22/24 21:22 Temperature 96.8 F L 97.4 F L Temperature Source Oral Oral Pulse Rate 56 L 77 62 Respiratory Rate 17 17 Respiratory Effort Respiratory Depth Respiratory Pattern Blood Pressure 131/66 H 125/63 H 142/70 H Blood Pressure Mean 87 83 Blood Pressure Source Monitor Monitor Blood Pressure Position Sitting Semi-Fowlers Blood Pressure Location Right Arm Left Arm Pulse Ox 96 96 Oxygen Delivery Method Room Air Room Air 08/22/24 21:41 08/23/24 02:55 08/23/24 07:50 Temperature 97.5 F L Temperature Source Oral Pulse Rate 54 L 68 Respiratory Rate 20 H Respiratory Effort Normal Non-Labored Respiratory Depth Normal Respiratory Pattern Normal Blood Pressure 162/68 H Blood Pressure Mean 99 Blood Pressure Source Monitor Blood Pressure Position Semi-Fowlers Blood Pressure Location Left Arm Pulse Ox 98 Oxygen Delivery Method Room Air Room Air Weight Weight: 136 lb 10.986 oz Body Mass Index (BMI) 21.4 Indicators for Scoring Admitted with or Primary Diagnosis of CVA/Stroke: Yes Hx of CVA/Stroke: Yes Modified Jessica Score MRS Score at time of Evaluation: 4-Moderate/severe disability NIHSS NIHSS 1a. Level of Consciousness: 0 - Alert; keenly responsive 1b. LOC Questions: 2 - Answers NEITHER question correctly 1c. LOC Commands: 1 - Performs ONE task correctly 2. Best Gaze: 0 - Normal 3. Visual: 0 - No visual loss 4. Facial Palsy: 1 - Minor paralysis (flattened nasolabial fold, asymmetry on smiling) 5a. Left Arm: 0 - No drift; arm holds 90 (or 45) degrees for full 10 seconds 5b. Right Arm: 1 - Drift; arm drifts downward but doesn?t hit the bed (pronator drift with the RUE also) 6a. Left Le - No drift; leg holds 30-degree position for full 5 seconds 6b. Right Le - No drift; leg holds 30-degree position for full 5 seconds 7. Limb Ataxia: 2 - Present in 2 limbs (R arm and leg) 8. Sensory: 0 - Normal; no sensory loss 9. Best Language: 1 - Fuxy-dc-owakinam aphasia; (trouble word finding and also trouble following commands. Able to read all the words on NIHSS scoring and allthe sentences. able to tell me what was going on in the picture and name all the objects.) 10. Dysarthria: 1 = [id number] dysarthria; 11. Extinction and Inattention: 1 - Visual, tactile, auditory, spatial, or personal inattention; (No visual exticntion. Difficult to tell if she had tactile extinction.......she was unable to understand what I was asking her to do and then became overwhelmed. ) Total: 10 Stroke Questions Stroke Team Activated: No Physical Exam Const alert Constitutional Narrative: Oriented to the year and where she is is and to person. could not tell me her age or the month. Knows that she is here for a stroke. Able to follow some simple commands and not others......I needed to give verbal and visual cues and at times needed physical cuing to show her what I was asking her to do. General Appearance: cooperative, comfortable, well kempt and well developed HEENT head/scalp atraumatic and hearing grossly normal bilaterally HEENT Narrative: MM are dry. NO evidence of thrush. Tongue deviates a little to the R when protruded. Eyes PERRL, EOMs intact bilaterally, conjunctivae normal and no scleral icterus Eyes Narrative: No discharge from the eyes and no mattering of the eyelashes Neck supple, No nodes and no carotid bruits General: trachea midline Chest Chest: symmetrical chest wall rise Resp normal respiratory effort and normal air movement Resp Narrative: initially had crackles in both bases but, after several deep breaths the lungs were CTA with good air exchange. No wheezing and she is not tachypneic. Effort and Inspection: able to speak in complete sentences Cardio regular rate, regular rhythm, S1 normal heart sound, S2 normal heart sound, no rub and no gallops Cardio Narrative: No ectopy. she has either a bruit or a MM at the LVOT. good pulse when I raiseher L arm and she hadno tingling with elevation. She is known to have a dilated aortic root. Denies pain in the LUE. GI normal to inspection, nondistended, normoactive bowel sounds, soft to palpation and non-tender GI Narrative: No guarding with palpation. no CVA tenderness Narrative: Denies dysuria. C/O urinary urge incontinence that predated the CVA. Back/Spine no CVA tenderness Back/Spine Narrative: She has kyphosis. Extremity no calf tenderness and no pedal edema Extremity Narrative: pedal pulses are decreased. 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 No redness and no DC. Some dryness of the heelsbut, no redness or breakdown. Some dependent rubor. Skin Rashes: no rashes Hair: normal Neuro Neuro Narrative: Alert. Oriented to person and after a few tries could tell me the year. She knows where she is and why she is here. Having a hard time following simple commands at times. Needed visual, verbal and physical cues. Very mild right facial droop. Tongue deviates a small amount to the right side. The palate elevates symmetrically. Decreased shoulder shrug on the right. No visual fieldcuts. No visual extinction. Mild decrease in strength with a slight amount of drift in the right upper extremity. She has pronator drift with the right upperextremity and is unable to use her hand efficiently to feed herself. No drift in the left upper extremity with good strength. She has ataxia with the right upperextremity and the right lower extremity. Could not adequately test for tactile extinction because she is unable to understand what I want her to do. No sensory loss. Having a lot of difficulty with word finding at times. Familyhas noticed the confusion more than anything else. No tremors. Psych cooperative, affect normal, denies hallucinations, denies homicidal ideation anddenies suicidal ideation Appearance: grossly normal, appropriate and well kempt Attitude: calm, engaged, No withdrawn, No uncooperative and No agitated Activity / Motor Behavior: appropriate eye contact; Negative for psychomotor agitation or psychomotor slowing Results Lab / Micro Data 08/23/24 05:14 08/23/24 05:14 Labs: Laboratory Results - last 24 hr 08/23/24 05:14: WBC 6.0, RBC 3.53 L, Hgb 10.9 L, Hct 34.9 L, MCV 98.9, MCH 30.9,MCHC 31.2 L, RDW Std Deviation 46.1 H, RDW Coeff of Dalton 12.8, Plt Count 246, MPV9.5, Sodium 141, Potassium 4.1, Chloride 108, Carbon Dioxide 22.6, Anion Gap 10,BUN 23 H, Creatinine 0.78, Estim Creat Clear Calc 39.92 L, Est GFR (MDRD) Non-Af74, BUN/Creatinine Ratio 29.6 H, Glucose 101 H, Calcium 9.3, Phosphorus 3.9, Magnesium 2.1, Total Bilirubin 0.23, AST 28, ALT 18, Alkaline Phosphatase 74, Total Protein 6.0, Albumin 3.4, Globulin 2.6, Albumin/Globulin Ratio 1.3 Assessment & Plan Assessment/Plan (1) Debility: (2) Ischemic cerebrovascular accident (CVA): (3) Aphasia complicating stroke: (4) Acute right-sided weakness: (5) 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: (6) Ataxia due to acute cerebrovascular disease: (7) Dysarthria: (8) Paroxysmal atrial fibrillation: (9) Chronic anticoagulation: (10) HTN (hypertension): QUALIFIERS: Hypertension type: primary hypertension Qualified Code(s): I10 - Essential (primary) hypertension (11) Dyslipidemia: (12) Thoracic kyphosis: QUALIFIERS: Kyphosis type: unspecified Qualified Code(s): M40.204- Unspecified kyphosis, thoracic region (13) Normochromic normocytic anemia: PLAN: Plan PLAN PT for gait stability OT for ADL's ST for evaluation Analgesics as needed Bowel protocol Fall precautions Assess for Anxiety/Depression GI prophylaxis -not necessary at this time. She denies nausea/vomiting/epigastric pain/heartburn DVT prophylaxis -continue apixaban 2.5 mg twice daily for chronic anticoagulation for paroxysmal atrial fibrillation. Follow up with PCP, cardiology and neurology following DC from [facility] AM lab including CMP, CBC, Mag and Phos - all personally reviewed. Laxatives given for constipation and started on stool softeners. Not on vitamin D or calcium. vitamin D level is borderline low at 35. Will adda vitamin D supplement to the drug regimen. Ask pt and family if she has ever had a DEXA........she has increased kyphosis and bone demineralization on the CXR done recently Repeat lipids and a liver panel in 6 weeks. she has finished an appropriate course of antibiotics for UTI. Charges/Coding Visit Charges Inpatient E&M: 01634 Init Hosp L3 08/26/24 1202 Cosigner Signature (if applicable): CC: GARFIELD Deutsch; Dr. Behzad Dorado, DO~ Signed [facility]05-12-2025 Telephone encounter Note* Telephone Encounter - Tasha Deutsch APRN.[facility] - 08/23/2024 12:04 PM EDT Patient was discharged from [facility] on August 22, 2024 for acute ischemic stroke/TIA Patient presented with dysarthria, anarthria, lack of coordination, Patient's family being concerned she needs an MRI to rule out a stroke. Seen in the emergency room 2 days ago and had an episode of confusion could not figure out how to get her garage door open by pushing the button. Workup was negative in the emergency room NIH was 0 at the time. Discharged home after discussion with family. Another family member visiting from out of town noted that she had continued episodes of confusion was having difficulty controlling the right side of her arm and leg andsome speech change. The day of presentation she was unable to feed herself using a spoon. Temperature 98, heart rate 81, respirations 15, blood pressure 187/89, pulse oximeter 100. CBC was unremarkable other than a mild left shift with a neutrophilia of 79.2%. Coags normal. Chemistry overtly normal other than a BUN of 27. Creatinine was baseline 1.0, glucose 72, hemoglobin A1c 5.7%. Lactic acid less than 1. Liver functions unremarkable. Urine consistent with an infection had nitrates and leukocytes white cells and 3+ bacteria. Tox screen negative. CT of the brain showed no acute cranial abnormalities and chronic age-related microvascular changes. Chest x-ray showed no acute findings. Concern for stroke as well as UTI. Started on ceftriaxone andurine culture sent. She did grow out E. coli was treated for 5 days of ceftriaxone and transition to Keflex. She has 1 more day of antibiotic left. Echocardiogram showed ejection fraction of 65% with indeterminate diastolic function, mild left atrial enlargement, aortic valve sclerosis without stenosis, mildly calcified aortic root. MRI did showan acute left frontal parietal lobe infarct compatible with MCA distribution and local mass affect without midline shift as well as chronic microvascular ischemia. She was not anticoagulated and further information was given to her youngest daughter revealed she had there was discussion of anticoagulation that the oldest daughter did not want her to go onto it due to effects of bleeding. It was deferred past that. She did flip into A-fib. Rates in the low 100s. Started on metoprolol initially 50 mg twice a day and will reduce to 25 mg twice a day when her heart rate dipped into the 50s. She did return to sinus rhythm. She was started on apixaban 2.5 mg twice daily as recommended for age andweight. Risk for being on anticoagulated outweighed the risk of falls. DOAC started 5 days after her onset of stroke as recommended by neurology. They discontinued aspirin and Plavix. She was placed o n a atorvastatin 40 mg daily. Patient was sent to rehab. [facility]05-12-2025 Miscellaneous Notes* Telephone Encounter - Tasha Deutsch APRN.CNP - 08/23/2024 12:04 PM EDT Patient was discharged from [facility] on August 22, 2024 for acute ischemic stroke/TIA Patient presented with dysarthria, anarthria, lack of coordination, Patient's family being concerned she needs an MRI to rule out a stroke. Seen in the emergency room 2 days ago and had an episode of confusion could not figure out how to get her garage door open by pushing the button. Workup was negative in the emergency room NIH was 0 at the time. Discharged home after discussion with family. Another family member visiting from out of town noted that she had continued episodes of confusion was having difficulty controlling the right side of her arm and leg andsome speech change. The day of presentation she was unable to feed herself using a spoon. Temperature 98, heart rate 81, respirations 15, blood pressure 187/89, pulse oximeter 100. CBC was unremarkable other than a mild left shift with a neutrophilia of 79.2%. Coags normal. Chemistry overtly normal other than a BUN of 27. Creatinine was baseline 1.0, glucose 72, hemoglobin A1c 5.7%. Lactic acid less than 1. Liver functions unremarkable. Urine consistent with an infection had nitrates and leukocytes white cells and 3+ bacteria. Tox screen negative. CT of the brain showed no acute cranial abnormalities and chronic age-related microvascular changes. Chest x-ray showed no acute findings. Concern for stroke as well as UTI. Started on ceftriaxone andurine culture sent. She did grow out E. coli was treated for 5 days of ceftriaxone and transition to Keflex. She has 1 more day of antibiotic left. Echocardiogram showed ejection fraction of 65% with indeterminate diastolic function, mild left atrial enlargement, aortic valve sclerosis without stenosis, mildly calcified aortic root. MRI did showan acute left frontal parietal lobe infarct compatible with MCA distribution and local mass affect without midline shift as well as chronic microvascular ischemia. She was not anticoagulated and further information was given to her youngest daughter revealed she had there was discussion of anticoagulation that the oldest daughter did not want her to go onto it due to effects of bleeding. It was deferred past that. She did flip into A-fib. Rates in the low 100s. Started on metoprolol initially 50 mg twice a day and will reduce to 25 mg twice a day when her heart rate dipped into the 50s. She did return to sinus rhythm. She was started on apixaban 2.5 mg twice daily as recommended for age andweight. Risk for being on anticoagulated outweighed the risk of falls. DOAC started 5 days after her onset of stroke as recommended by neurology. They discontinued aspirin and Plavix. She was placed o n a atorvastatin 40 mg daily. Patient was sent to rehab. [facility]05-11[facility]25 Discharge summary Author Mara Mar [facility] Note Date/Time August 22, 2024 11:20 am [facility] Medical Records Department [address] [place] [address] Discharge Summary 08/22/24 0726 MR#: [id number] Acct: [id number] Name: BEHZAD HAY Rep #:[id number] : 1940 84 From: Mara Mar DO PCP: GARFIELD Maldonado Status:ADM IN Location: [place] [id number] Providers Date of Admission: 08/18/24 Date of Discharge: 08/22/24 Primary Care Physician: GARFIELD Maldonado Consultations 08/18/24 16:47 Consult: Tele-Neurology Routine Consulting Provider: [facility] Reason for Consult: Acute Ischemic Stroke/TIA EMERGENT Consult: No MD Notified: Yes Date Notified: 08/18/24 Time Notified: 16:51 Method of Notification: Answering Service Nursing Unit Staff Notify [facility] of Tele-Neurology Consult: Yes Reason For Visit: STROKE Diagnosis Discharge Diagnosis (1) Dysarthria: Status: Acute Code(s): R47.1 - Dysarthria and anarthria (2) Dysmetria: Status: Acute Code(s): R27.8 - Other lack of coordination (3) Abnormal urinalysis: Status: Acute Code(s): R82.90 - Unspecified abnormal findings in urine Medications at Discharge Home Medications lisinopril 30 mg tablet 30 mg PO DAILY 08/16/24 multivitamin (Daily Multi-Vitamin tablet) 1 tab PO DAILY 08/16/24 acetaminophen 325 mg tablet 650 mg (2 x 325 mg) PO Q4H PRN PRN Pain 1-10 Or Fever>99.6 #0 tabs 08/22/24 apixaban 5 mg tablet (Eliquis) 2.5 mg (1/2 x 5 mg) PO BID #0 tabs 08/22/24 atorvastatin 40 mg tablet 40 mg PO QHS #1 TAB 08/22/24 cephalexin 500 mg capsule 500 mg PO Q12 #2 caps 08/22/24 melatonin 3 mg tablet 3 mg PO QHS PRN PRN Insomnia #0 tabs 08/22/24 metoprolol tartrate 50 mg tablet 25 mg (1/2 x 50 mg) PO BID #0 tabs 08/22/24 sennosides 8.6 mg-docusate sodium 50 mg tablet (Stimulant Laxative Plus) 2 tab PO BID PRN PRN Constipation #0 tabs 08/22/24 Hospital Course Operations None Procedures 2-D Echocardiogram and - (CT brain/CTA head neck/MRI brain) Summary of Care Provided Minutes Spent on Discharge: 38 Hospital Course: BEHZAD HAY, is a 84 F who presented to the emergency department at [facility] on 08/18/2024 due to patient's family being concerned she needed an MRI to rule out a stroke. She was seen in emergency department 2 daysago at which time she had an episode of confusion where she could not figure outhow to get her garage open by pushing the button. Workup was negative and emergency department NIH was 0 at that time. She was discharged home after discussion with family. Another family member brought her in today who is visiting from out of town and noted that she continued to have episodes of confusion and was having difficulty with controlling the right side of her arm and leg and some speech changes. They indicated that early on the day of presentation she was unable to use a spoon to feed herself. They also indicatedthat she was having some difficulty walking with her right leg and was having word finding difficulty. Vital signs on presentation showed a temperature of 98, heart rate 81, respiratory rate 15, blood pressure was 187/89 and pulse ox was 100% on room air. CBC was unremarkable other than a mild left shift with a 79.2% neutrophilia. Coags were normal. Chemistry panel was overtly unremarkable other than a slightly elevated BUN at 27. Her creatinine was at her baseline of 1.0. Glucose was 72 and we did obtain a hemoglobin A1c that was5.7. Lactic acid was normal at less than 1. Liver functions were unremarkable. Her UA was consistent with infection had nitrites, leuk esterase, white cells and 3+ bacteria. Toxicology screen was negative and at the alcohol level is negative. CT of the brain in the emergency department showed no acute cranial abnormalities and chronic age-related microvascular ischemic changes along with age-related senescent changes and atherosclerotic calcific disease. Chest x-rayshowed no acute findings. There is concern for stroke as well as urinary tract infection and she was started on ceftriaxone and urine culture was sent. She was admitted to PCU for further workup. Urine culture did grow out E. coli and she was treated for a total of 5 days initially with ceftriaxone and transition to Keflex. She has 1 more day at discharge and antibiotic can be discharged on 08/23/2024. Echocardiogram showed a normal EF at 65% with indeterminate diastolic dysfunction, mild left atrial enlargement, aortic valve sclerosis without stenosis and a mildly calcified aortic root. MRI did show an acute leftfrontal parietal lobe infarct compatible with the MCA distribution and local mass effect without midline shift as well as chronic microvascular ischemic changes and involutional changes. On admission I did find that she had been in atrial fibrillation a past. She was not anticoagulated and further information from her youngest daughter revealed that there was discussion of anticoagulationhowever the patient and the oldest daughter did not want her to go on it due to side effects of bleeding. So it was deferred previously due to that. During her hospitalization, she did flip into A-fib. Rates were in the low 100s. We started her on metoprolol initially 50 mg p.o. twice daily and then transition to 25 mg p.o. twice daily as her heart rate dipped in the 50s when she was in sinus rhythm. She did self convert into sinus rhythm and remained there for a good bit of her hospitalization however now we know she does have paroxysmal atrial fibrillation I would you feel that her stroke was cardioembolic most likely. We started her on apixaban 2.5 mg p.o. twice daily as dose adjustment is recommended for age and weight. We did discuss that for the risk of being anticoagulated to outweigh the benefit she would have to be falling on a daily basis which she is not doing she falls intermittently and most recent falls related to her stroke. DOAC was started 5 days after symptom onset for stroke as recommended by neurology. They recommended discontinuing her aspirin and Plavix at the time we initiated her DOAC. She is also to be on a statin at 40 mg daily and was followed up by physical occupational as well as speech therapy. All therapy services recommended ongoing rehab at discharge and she was accepted and approved for rehab. She was able to be discharged in stable condition on 08/22/2024 to the acute rehab service here at the hospital. She will need follow-up with neurology and her primary care physician as well as cardiology after discharge. 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 coli UTI Paroxysmal A-fib with mild RVR CKD stage IIIb Essential hypertension Osteoarthritis Mild cognitive impairment Physical Exam Const alert, no apparent distress, average body habitus and well nourished Constitutional Narrative: Very pleasant elderly, sitting up in bed, appears comfortable, nontoxic, on phone with her daughter, nursing at bedside General Appearance: cooperative, comfortable, well kempt and well developed HEENT normocephalic, head/scalp atraumatic and moist oral mucous membranes; Negative for hearing grossly normal bilaterally HEENT Narrative: Mallampati 2, no thrush, mild hearing loss Eyes PERRL, EOMs intact bilaterally and conjunctivae normal Eyes Narrative: No scleral icterus Neck no lymphadenopathy and supple Neck Narrative: trachea midline, no thyroid enlargement Resp normal respiratory effort, no retractions, no use of accessory muscles and clearto auscultation bilaterally Auscultation: Negative for rales, rhonchi or wheezes Cardio regular rate, regular rhythm, S1 normal heart sound, S2 normal heart sound, no murmurs, no rub, no gallops and no clicks GI normal to inspection, nondistended, normoactive bowel sounds, soft to palpation and non-tender Extremity no clubbing, cyanosis or edema Extremity Narrative: 2+ pedal and radial pulses Skin skin turgor normal, no jaundice, no petechiae and no mottling Neuro CN's II-XII intact bilaterally Neuro Narrative: dysmetria predominantly right upper extremity, mild expressive aphasia, mild dysarthria Sensorium / Orientation: awake, alert, oriented to person and oriented to place;Negative for oriented to time Speech: Negative for speech normal Psych affect normal Psych Narrative: very pleasant Weight / BMI Weight Weight: 51.8 kg Body Mass Index (BMI) 20.9 ABG / Lab / Microbiology Data 08/22/24 04:23 08/22/24 04:23 Laboratory: Laboratory Results - last 24 hr 08/22/24 04:23: WBC 5.7, RBC 3.52 L, Hgb 11.0 L, Hct 34.7 L, MCV 98.6, MCH 31.3,MCHC 31.7 L, RDW Std Deviation 47.0 H, RDW Coeff of Dalton 13.1, Plt Count 245, MPV9.6, Sodium 142, Potassium 4.1, Chloride 111 H, Carbon Dioxide 22.3, Anion Gap 9, BUN 31 H, Creatinine 0.78, Estim Creat Clear Calc 39.92 L, Est GFR (MDRD) Non-Af 74, BUN/Creatinine Ratio 39.3 H, Glucose 96, Calcium 9.1 Microbiology: Microbiology 08/18/24 11:35 Urine, Clean Catch Urine Culture - Final Escherichia coli 08/18/24 12:35 Blood Culture (Wb) - Left Hand Blood Culture - Preliminary No growth in 48 hours. 08/18/24 17:00 Blood Culture (Wb) - Anticubital Right Blood Culture - Preliminary No growth in 48 hours. D/C Instructions Discharge Diet: Low fat / Low cholesterol Discharge Activity: Return to Normal Activity DC O2, CPAP, BIPAP Needs Home O2 Discharge instructions: No Meaningful Use Info Meaningful Use Meaningful Use Diagnoses (Choose all that apply): Ischemic CVA CVA Therapy Assessed for PT,OT and/or ST?: Yes Ischemic Stroke Antithrombotic order at d/c?: No Reason antithrombotic not ordered: Treatment not Indicated Dx of Atrial fib/flutter?: Yes Anticoagulant at discharge?: Yes Statin Dosing Therapy Reference: STATIN DOSE THERAPY REFERENCE: * Patients > 75 years receive moderate or high dose statin therapy. * Patients 75 years or YOUNGER should receive HIGH intensity statin dose unless contraindicated. You will be required to document reason for non-treatment if statin daily dose does not meet guidelines. HIGH DOSE STATIN THERAPY DAILY Atorvastatin > than or = to 40 mg Rosuvastatin > than or = to 20 mg Amlodipine + Atorvastatin > than or = to 2.5/40 mg Ezetimibe + Simvastatin 10/80 mg Simvastatin 80mg Statins at discharge?: Yes Primary Dx Acute Ischemic CVA?: Yes Discharge Plan Admission Admit Date/Time: 08/18/24 13:06 Primary Reason for Your Visit: Confusion/dysarthria/dysmetria right-sided Attending Provider: Mara Mar Primary Care Provider: Tasha Deutsch Consulting Providers: Harley Nunez; Liu Woody; Isa Cruz; Maki López; Shalom Ledesma; Jeronimo Trujillo; Maureen Townsend; Efraín Alexis; Lc Salazar; Pravin Lehman; Tyra Bains; Ousmane Cantu; Maggie Collins; Bernabe Foreman; Zoya Sher; Addy Nuno; Melany Henderson; Orlin Ham; Mayra Mar; Luc Machuca Discharge Orders/Prescriptions Prescriptions: New atorvastatin 40 mg Tablet 40 mg PO QHS Qty: 1 0RF acetaminophen 325 mg Tablet 650 mg PO Q4H PRN PRN (Reason: Pain 1-10 Or Fever>99.6) Qty: 0 0RF metoprolol tartrate 50 mg Tablet 25 mg PO BID Qty: 0 0RF Eliquis 5 mg Tablet 2.5 mg PO BID Qty: 0 0RF cephalexin 500 mg Capsule 500 mg PO Q12 Qty: 2 0RF sennosides-docusate sodium [Stimulant Laxative Plus] 8.6-50 mg Tablet 2 tab PO BID PRN PRN (Reason: Constipation) Qty: 0 0RF melatonin 3 mg Tablet 3 mg PO QHS PRN PRN (Reason: Insomnia) Qty: 0 0RF Continued lisinopril 30 mg tablet 30 mg PO DAILY No Action multivitamin [Daily Multi-Vitamin] Tablet 1 tab PO DAILY Referrals / Follow Up: Tasha Deutsch CNS [Primary Care Provider] - See Referral Note (1 week afterdischarge from rehab) Swapnil Balderrama MD [Med Staff - Active Staff] - See Referral Note (4 to 8 weeks for atrial fibrillation) Lamonte Foster MD [Non-Staff -Ordering Privileges] - See Referral Note (Pleasefollow-up in 6 to 8 weeks) Disposition Disposition (needs filled in before D/C Order can be placed): Inpatient Rehab Unit/Facility Charges/Coding Visit Charges Inpatient E&M: 26739 Disch Hosp >30min 08/22/24 1120 <Electronically signed by Mara Mar DO> Cosigner Signature (if applicable): CC: GARFIELD Deutsch; Dr. Mara Mar DO; Dr. Swapnil Balderrama MD; Dr. Lamonte Foster MD~ Signed [facility] Work Phone: [phone] 395-453005-11-2025 Discharge summary [facility] Medical Records Department [address] [place] [address] Discharge Summary 08/22/24 0726 MR#: [id number] Acct: [id number] Name: BEHZAD HAY Rep #:[id number] : 1940 84 From: Mara Mar DO PCP: GARFIELD Maldonado Status:ADM [facility] Prov[facility] Date of Admission: 08/18/24 Date of Discharge: 08/22/24 Primary Care Physician: GARFIELD Maldonado Consultations 08/18/24 16:47 Consult: Tele-Neurology Routine Consulting Provider: [facility] Reason for Consult: Acute Ischemic Stroke/TIA EMERGENT Consult: No MD Notified: Yes Date Notified: 08/18/24 Time Notified: 16:51 Method of Notification: Answering Service Nursing Unit Staff Notify [facility] of Tele-Neurology Consult: Yes Reason For Visit: STROKE Diagnosis Discharge Diagnosis (1) Dysarthria: Status: Acute Code(s): R47.1 - Dysarthria and anarthria (2) Dysmetria: Status: Acute Code(s): R27.8 - Other lack of coordination (3) Abnormal urinalysis: Status: Acute Code(s): R82.90 - Unspecified abnormal findings in urine Medications at Discharge Home Medications lisinopril 30 mg tablet 30 mg PO DAILY 08/16/24 multivitamin (Daily Multi-Vitamin tablet) 1 tab PO DAILY 08/16/24 acetaminophen 325 mg tablet 650 mg (2 x 325 mg) PO Q4H PRN PRN Pain 1-10 Or Fever>99.6 #0 tabs 08/22/24 apixaban 5 mg tablet (Eliquis) 2.5 mg (1/2 x 5 mg) PO BID #0 tabs 08/22/24 atorvastatin 40 mg tablet 40 mg PO QHS #1 TAB 08/22/24 cephalexin 500 mg capsule 500 mg PO Q12 #2 caps 08/22/24 melatonin 3 mg tablet 3 mg PO QHS PRN PRN Insomnia #0 tabs 08/22/24 metoprolol tartrate 50 mg tablet 25 mg (1/2 x 50 mg) PO BID #0 tabs 08/22/24 sennosides 8.6 mg-docusate sodium 50 mg tablet (Stimulant Laxative Plus) 2 tab PO BID PRN PRN Constipation #0 tabs 08/22/24 Hospital Course Operations None Procedures 2-D Echocardiogram and - (CT brain/CTA head neck/MRI brain) Summary of Care Provided Minutes Spent on Discharge: 38 Hospital Course: BEHZAD HAY, is a 84 F who presented to the emergency department at [facility] on 08/18/2024 due to patient's family being concerned she needed an MRI to rule out a stroke. She was seen in emergency department 2 daysago at which time she had an episode of confusion where she couldnot figure outhow to get her garage open by pushing the button. Workup was negative and emergency department NIH was 0 at that time. She was discharged home after discussion with family. Another family member brought her in today who is visiting from out of town and noted that she continued to haveepisodes of confusion and was having difficulty with controlling the right side of her arm and leg and some speech changes. They indicated that early on the day of presentation she was unable to use a spoon to feed herself. They also indicatedthat she was having some difficulty walking with her right leg and was having word finding difficulty. Vital signs on presentation showed a temperature of 98, heart rate 81, respiratory rate 15, blood pressure was 187/89 and pulse ox was 100% on room air. CBC was unremarkable other than a mild left shift with a 79.2% neutrophilia. Coags were normal. Chemistry panel was overtly unremarkable other than a slightly elevated BUN at 27. Her creatinine was ather baseline of 1.0. Glucose was 72 and we did obtain a hemoglobin A1c that was5.7. Lactic acid wasnormal at less than 1. Liver functions were unremarkable. Her UA was consistent with infection had nitrites, leuk esterase, white cells and 3+ bacteria. Toxicology screen was negative and at the alcohol level is negative. CT of the brain in the emergency department showed no acute cranial abnormalit ies and chronic age-related microvascular ischemic changes along with age- related senescent changesand atherosclerotic calcific disease. Chest x-rayshowed no acute findings. There is concern for stroke as well as urinary tract infection and she was started on ceftriaxone and urine culture was sent. She was admitted to PCU for further workup. Urine culture did grow out E. coli and she was treatedfor a total of 5 days initially with ceftriaxone and transition to Keflex. She has 1 more day at discharge and antibiotic can be discharged on 08/23/2024. Echocardiogram showed a normal EF at 65% withindeterminate diastolic dysfunction, mild left atrial enlargement, aortic valve sclerosis without st enosis and a mildly calcified aortic root. MRI did show an acute leftfrontal parietal lobe infarct compatible with the MCA distribution and local mass effect without midline shift as well as chronic microvascular ischemic changes and involutional changes. On admission I did find that she had been in atrial fibrillation a past. She was not anticoagulated and further information from her youngest daughter revealed that there was discussion of anticoagulationhowever the patient and the oldest daughter did not want her to go on it due to side effects of bleeding. So it was deferred previously dueto that. During her hospitalization, she did flip into A-fib. Rates were in the low 100s. We started her on metoprolol initially 50 mg p.o. twice daily and then transition to 25 mg p.o. twice daily as her heart rate dipped in the 50s when she was in sinus rhythm. She did self convert into sinus rhythm and remained there for a good bit of her hospitalization however now we know she does have paroxysmal atrial fibrillation I would you feel that her stroke was cardioembolic most likely. We startedher on apixaban 2.5 mg p.o. twice daily as dose adjustment is recommended for age and weight. We did discuss that for the risk of being anticoagulated to outweigh the benefit she would have to be falling on a daily basis which she is not doing she falls intermittently and most recent falls related to her stroke. DOAC was started 5 days after symptom onset for stroke as recommended by neurology. They recommended discontinuing her aspirin and Plavix at the time we initiated her DOAC. She is also to be on a statin at 40 mg daily and was followed up by physical occupational as well as speech therapy. All therapy services recommended ongoing rehab at discharge and she was accepted and approved for rehab. She was able to be discharged in stable condition on 08/22/2024 to the acute rehab service here at the hospital. She will need follow- up with neurology and her primary care physician as well as cardiology after discharge. 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 coli UTI Paroxysmal A-fib with mild RVR CKD stage IIIb Essential hypertension Osteoarthritis Mild cognitive impairment Physical Exam Const alert, no apparent distress, average body habitus and well nourished Constitutional Narrative: Very pleasant elderly, sitting up in bed, appears comfortable, nontoxic, on phone with her daughter, nursing at bedside General Appearance: cooperative, comfortable, well kempt and well developed HEENT normocephalic, head/scalp atraumatic and moist oral mucous membranes; Negative for hearing grossly normal bilaterally HEENT Narrative: Mallampati 2, no thrush, mild hearing loss Eyes PERRL, EOMs intact bilaterally and conjunctivae normal Eyes Narrative: No scleral icterus Neck no lymphadenopathy and supple Neck Narrative: trachea midline, no thyroid enlargement Resp normal respiratory effort, no retractions, no use of accessory muscles and clearto auscultation bilaterally Auscultation: Negative for rales, rhonchi or wheezes Cardio regular rate, regular rhythm, S1 normal heart sound, S2 normal heart sound, no murmurs, no rub, no gallops and no clicks GI normal to inspection, nondistended, normoactive bowel sounds, soft to palpation and non-tender Extremity no clubbing, cyanosis or edema Extremity Narrative: 2+ pedal and radial pulses Skin skin turgor normal, no jaundice, no petechiae and no mottling Neuro CN's II-XII intact bilaterally Neuro Narrative: dysmetria predominantly right upper extremity, mild expressive aphasia, mild dysarthria Sensorium / Orientation: awake, alert, oriented to person and oriented to place;Negative for oriented to time Speech: Negative for speech normal Psych affect normal Psych Narrative: very pleasant Weight / BMI Weight Weight: 51.8 kg Body Mass Index (BMI) 20.9 ABG / Lab / Microbiology Data 08/22/24 04:23 08/22/24 04:23 Laboratory: Laboratory Results - last 24 hr 08/22/24 04:23: WBC 5.7, RBC 3.52 L, Hgb 11.0 L, Hct 34.7 L, MCV 98.6, MCH 31.3,MCHC 31.7 L, RDW Std Deviation 47.0 H, RDW Coeff of Dalton 13.1, Plt Count 245, MPV9.6, Sodium 142, Potassium 4.1, Chloride 111 H, Carbon Dioxide 22.3, Anion Gap 9, BUN 31 H, Creatinine 0.78, Estim Creat Clear Calc 39.92 L, Est GFR (MDRD) Non-Af 74, BUN/Creatinine Ratio 39.3 H, Glucose 96, Calcium 9.1 Microbiology: Microbiology 08/18/24 11:35 Urine, Clean Catch Urine Culture - Final Escherichia coli 08/18/24 12:35 Blood Culture (Wb) - Left Hand Blood Culture - Preliminary No growth in 48 hours. 08/18/24 17:00 Blood Culture (Wb) - Anticubital Right Blood Culture - Preliminary No growth in 48 hours. D/C Instructions Discharge Diet: Low fat / Low cholesterol Discharge Activity: Return to Normal Activity DC O2, CPAP, BIPAP Needs Home O2 Discharge instructions: No Meaningful Use Info Meaningful Use Meaningful Use Diagnoses (Choose all that apply): Ischemic CVA CVA Therapy Assessed for PT,OT and/or ST?: Yes Ischemic Stroke Antithrombotic order at d/c?: No Reason antithrombotic not ordered: Treatment not Indicated Dx of Atrial fib/flutter?: Yes Anticoagulant at discharge?: Yes Statin Dosing Therapy Reference: STATIN DOSE THERAPY REFERENCE: * Patients > 75 years receive moderate or high dose statin therapy. * Patients 75 years or YOUNGER should receive HIGH intensity statin dose unless contraindicated. You will be required to document reason for non-treatment if statin daily dose does not meet guidelines. HIGH DOSE STATIN THERAPY DAILY Atorvastatin > than or = to 40 mg Rosuvastatin > than or = to 20 mg Amlodipine + Atorvastatin > than or = to 2.5/40 mg Ezetimibe + Simvastatin 10/80 mg Simvastatin 80mg Statins at discharge?: Yes Primary Dx Acute Ischemic CVA?: Yes Discharge Plan Admission Admit Date/Time: 08/18/24 13:06 Primary Reason for Your Visit: Confusion/dysarthria/dysmetria right-sided Attending Provider: Mara Mar Primary Care Provider: Tasha Deutsch Consulting Providers: Harely Nunez; Liu Woody; Isa Cruz; Maki López; Shalom Ledesma; Jeronimo Trujillo; Maureen Townsend; Efraín Alexis; Lc Salazar; Pravin Lehman; Tyra Bains; Ousmane Cantu; Maggie Collins; Bernabe Foreman; Zoya Sher; Addy Nuno; Melany Henderson; Orlin Ham; Mayra Mar; Luc Machuca Discharge Orders/Prescriptions Prescriptions: New atorvastatin 40 mg Tablet 40 mg PO QHS Qty: 1 0RF acetaminophen 325 mg Tablet 650 mg PO Q4H PRN PRN (Reason: Pain 1-10 Or Fever>99.6) Qty: 0 0RF metoprolol tartrate 50 mg Tablet 25 mg PO BID Qty: 0 0RF Eliquis 5 mg Tablet 2.5 mg PO BID Qty: 0 0RF cephalexin 500 mg Capsule 500 mg PO Q12 Qty: 2 0RF sennosides-docusate sodium [Stimulant Laxative Plus] 8.6-50 mg Tablet 2 tab PO BID PRN PRN (Reason: Constipation) Qty: 0 0RF melatonin 3 mg Tablet 3 mg PO QHS PRN PRN (Reason: Insomnia) Qty: 0 0RF Continued lisinopril 30 mg tablet 30 mg PO DAILY No Action multivitamin [Daily Multi-Vitamin] Tablet 1 tab PO DAILY Referrals / Follow Up: Suppan,Tasha, OUTREACH COORDINATOR [Primary Care Provider] - See Referral Note (1 week afterdischarge from rehab) Swapnil Balderrama MD [Med Staff - Active Staff] - See Referral Note (4 to 8 weeks for atrial fibrillation) Lamonte Foster MD [Non-Staff -Ordering Privileges] - See Referral Note (Pleasefollow-up in 6 to 8weeks) Disposition Disposition (needs filled in before D/C Order can be placed): Inpatient Rehab Unit/Facility Charges/Coding Visit Charges Inpatient E&M: 27289 Disch Hosp >30min 08/22/24 1120 Cosigner Signature (if applicable): CC: GARFIELD Deutsch; Dr. Mara Mar DO; Dr. Swapnil Balderrama MD; Dr. Lamonte Foster MD~ Signed [facility]05-11-2025 [facility] Progress note Author Mara Mar [facility] Note Date/Time August 21, 2024 1:43p [facility] Medical Records Department [address] [place] [address] Progress Note - Hospitalist 08/21/24 1327 MR#: [id number] Acct: [id number] Name: BEHZAD HAY Rep #:[id number] : 1940 84 From: Mara Mar DO PCP: GARFIELD Maldonado Status:ADM IN Location: [place] [address] Reason for Visit Reason for Visit: No complaints overnight. We discussed starting anticoagulation today. Patient states she really does not want to start blood thinners however per discussion she also would prefer not to have a stroke. She chooses blood thinners over stroke. She was on the phone with her daughter at the time of our conversation who endorsed utilization of Eliquis. Objective Data Objective Data Vital Signs: Vital Signs Temp Pulse Resp BP Pulse Ox O2 Del Method 98.3 F 55 L 16 132/76 H 96 Room Air 08/21/24 10:00 08/21/24 10:00 08/21/24 10:00 08/21/24 10:00 08/21/24 11:36 08/21/24 11:36 Oxygen Delivery Method Room Air Weight: 51.8 kg Body Mass Index (BMI) 20.9 Intake & Output: Intake and Output for Last 24 Hours 08/19/24 08/20/24 08/21/24 23:59 23:59 23:59 Intake Total 50 / 50 1070 / 1070 400 / 400 Balance 50 / 50 1070 / 1070 400 / 400 Lab / Micro Data 08/19/24 05:55 08/19/24 05:55 Micro: Microbiology 08/18/24 11:35 Urine, Clean Catch Urine Culture - Final Escherichia coli 08/18/24 12:35 Blood Culture (Wb) - Left Hand Blood Culture - Preliminary No growth in 48 hours. 08/18/24 17:00 Blood Culture (Wb) - Anticubital Right Blood Culture - Preliminary No growth in 48 hours. Physical Exam Const alert, no apparent distress, average body habitus and well nourished Constitutional Narrative: Very pleasant elderly, sitting up in bed, appears comfortable, nontoxic, on phone with her daughter, nursing at bedside General Appearance: cooperative HEENT normocephalic, head/scalp atraumatic and moist oral mucous membranes Resp normal respiratory effort, no retractions, no use of accessory muscles and clearto auscultation bilaterally Auscultation: Negative for rales, rhonchi or wheezes Cardio regular rate, regular rhythm, S1 normal heart sound, S2 normal heart sound, no murmurs, no rub, no gallops and no clicks GI normal to inspection, nondistended, normoactive bowel sounds, soft to palpation and non-tender Extremity no clubbing, cyanosis or edema Extremity Narrative: 2+ pedal and radial pulses Neuro Neuro Narrative: dysmetria, mild expressive aphasia, some dysarthria Sensorium / Orientation: awake, alert, oriented to person and oriented to place;Negative for oriented to time Speech: Negative for speech normal Psych affect normal Psych Narrative: very pleasant Assessment & Plan Assessment/Plan (1) Dysarthria: (2) Dysmetria: (3) Abnormal urinalysis: PLAN: Plan Acute L MCA stroke - shows Acute infarct of L frontoparietal lobe with MCA infarct territory - Continue atorvastatin 40 mg daily - Stop Plavix and aspirin - Start Eliquis 2.5 mg p.o. 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 coli UTI - E. coli is pansensitive so we will transition to Keflex to complete a 5-day course - Today is day 4 of 5 CKD Stage IIIb -creat at baseline -monitor periodically Essential hypertension - Metoprolol 50 mg p.o. twice daily - Will likely discontinue lisinopril completely at discharge Osteoarthritis - As needed Tylenol available PAF - Noted in documentation from 2021 in the emergency department at which time shespontaneously converted -Patient has been in and out of atrial fibrillation during this hospitalization but currently in normal sinus rhythm -Continue metoprolol 50 mg p.o. twice daily -Will start Eliquis tomorrow 2.5 mg p.o. twice daily - TSH WNL DVT prophylaxis - Start Eliquis 2.5 mg p.o. twice daily and discontinue enoxaparin CODE STATUS - Full code Charges/Coding Visit Charges Inpatient E&M: 32529 Subs Hosp L2 NIHSS NIHSS Nursing Documentation NIHSS Nursing Documentation: NIHSS: Ischemic Stroke/TIA Start: 08/18/24 16:47 Text: For PCU Patients: NIH and Neuro Check every 4 Status: Active hours, PRN and with change in RN caregiver. Freq: [id number] Protocol: Activity Type Activity Date Activity User E-sign Co-sign Detail Recorded Client Recorded Date Recorded By Document 08/21/24 10:00 EM [id number] 08/21/24 10:37 EM 08/21/24 10:00 NIH Stroke Scale [NIHSS] A score of 0 is "normal" or asymptomatic . Total possible score is 42. Inpatient: RN or Physician to activate a stroke alert for onset of new stroke symptoms or with NIHSS increase >/= 3 points. Following change in neurological status, NIHSS will be performed per physician order or more frequently PRN. -1a. Level of Consciousness 0 - Alert; keenly responsive -1b. LOC Questions 1 - Answers ONE question correctly -1c. LOC Commands 0 - Performs BOTH tasks correctly -2. Best Gaze 0 - Normal -3. Visual 0 - No visual loss -4. Facial Palsy 0 - Normal symmetrical movements -5a. Left Arm 0 - No drift; arm holds 90 ( or 45) degrees for full 10 seconds -5b. Right Arm 0 - No drift; arm holds 90 ( or 45) degrees for full 10 seconds -6a. Left Leg 0 - No drift; leg holds 30- degree position for full 5 seconds -6b. Right Leg 0 - No drift; leg holds 30- degree position for full 5 seconds -7. Limb Ataxia 0 - Absent -8. Sensory 0 - Normal; no sensory loss -9. Best Language 1 - Mild-to- moderate aphasia; -10. Dysarthria 1 = Mild-to- moderate dysarthria; -11. Extinction and Inattention 0 - No abnormality -Total 3 Query Text:A score of 0 is "normal" or asymptomatic. Total possible score is 42 . ED: Notify Physician for NIHSS increase by > / = 3 points. Inpatient: RN or Physician to activate a stroke alert for NIHSS increase of > / = 3 points. Coma Scale [Assess] -Eye Opening Spontaneous -Motor Obeys Commands -Verbal Confused [Total] -Coma Scale Total 14 08/21/24 1343 <Electronically signed by Mara Mar DO> Cosigner Signature (if applicable): CC: ~ Signed [facility] Work Phone: [phone]) 143-419305-10-2025 Progress note [facility] Medical Records Department [address] [place] [address] Progress Note - Hospitalist 08/21/24 1327 MR#: [id number] Acct: [id number] Name: BEHZAD HAY Rep #:[id number] : 1940 84 From: Mara Mar DO PCP: Tasha Deutsch, OUTREACH COORDINATOR Status:ADM IN Location: [place] [address] Reason for Visit Reason for Visit: No complaints overnight. We discussed starting anticoagulation today. Patient states she really does not want to start blood thinners however per discussion she also would prefer not to have a stroke. She chooses blood thinners over stroke. She was on the phone with her daughter at the time of our conversation who endorsed utilization of Eliquis. Objective Data Objective Data Vital Signs: Vital Signs Temp Pulse Resp BP Pulse Ox O2 Del Method 98.3 F 55 L 16 132/76 H 96 Room Air 08/21/24 10:00 08/21/24 10:00 08/21/24 10:00 08/21/24 10:00 08/21/24 11:36 08/21/24 11:36 Oxygen Delivery Method Room Air Weight: 51.8 kg Body Mass Index (BMI) 20.9 Intake & Output: Intake and Output for Last 24 Hours 08/19/24 08/20/24 08/21/24 23:59 23:59 23:59 Intake Total 50 / 50 1070 / 1070 400 / 400 Balance 50 / 50 1070 / 1070 400 / 400 Lab / Micro Data 08/19/24 05:55 08/19/24 05:55 Micro: Microbiology 08/18/24 11:35 Urine, Clean Catch Urine Culture - Final Escherichia coli 08/18/24 12:35 Blood Culture (Wb) - Left Hand Blood Culture - Preliminary No growth in 48 hours. 08/18/24 17:00 Blood Culture (Wb) - Anticubital Right Blood Culture - Preliminary No growth in 48 hours. Physical Exam Const alert, no apparent distress, average body habitus and well nourished Constitutional Narrative: Very pleasant elderly, sitting up in bed, appears comfortable, nontoxic, on phone with her daughter, nursing at bedside General Appearance: cooperative HEENT normocephalic, head/scalp atraumatic and moist oral mucous membranes Resp normal respiratory effort, no retractions, no use of accessory muscles and clearto auscultation bilaterally Auscultation: Negative for rales, rhonchi or wheezes Cardio regular rate, regular rhythm, S1 normal heart sound, S2 normal heart sound, no murmurs, no rub, no gallops and no clicks GI normal to inspection, nondistended, normoactive bowel sounds, soft to palpation and non-tender Extremity no clubbing, cyanosis or edema Extremity Narrative: 2+ pedal and radial pulses Neuro Neuro Narrative: dysmetria, mild expressive aphasia, some dysarthria Sensorium / Orientation: awake, alert, oriented to person and oriented to place;Negative for oriented to time Speech: Negative for speech normal Psych affect normal Psych Narrative: very pleasant Assessment & Plan Assessment/Plan (1) Dysarthria: (2) Dysmetria: (3) Abnormal urinalysis: PLAN: Plan Acute L MCA stroke - shows Acute infarct of L frontoparietal lobe with MCA infarct territory - Continue atorvastatin 40 mg daily - Stop Plavix and aspirin - Start Eliquis 2.5 mg p.o. 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 coli UTI - E. coli is pansensitive so we will transition to Keflex to complete a 5-day course - Today is day 4 of 5 CKD Stage IIIb -creat at baseline -monitor periodically Essential hypertension - Metoprolol 50 mg p.o. twice daily - Will likely discontinue lisinopril completely at discharge Osteoarthritis - As needed Tylenol available PAF - Noted in documentation from 2021 in the emergency department at which time shespontaneously converted -Patient has been in and out of atrial fibrillation during this hospitalization but currently in normal sinus rhythm -Continue metoprolol 50 mg p.o. twice daily -Will start Eliquis tomorrow 2.5 mg p.o. twice daily - TSH WNL DVT prophylaxis - Start Eliquis 2.5 mg p.o. twice daily and discontinue enoxaparin CODE STATUS - Full code Charges/Coding Visit Charges Inpatient E&M: 47460 Subs Hosp L2 NIHSS NIHSS Nursing Documentation NIHSS Nursing Documentation: NIHSS: Ischemic Stroke/TIA Start: 08/18/24 16:47 Text: For PCU Patients: NIH and Neuro Check every 4 Status: Active hours, PRN and with change in RN caregiver. Freq: [id number] Protocol: Activity Type Activity Date Activity User E-sign Co-sign Detail Recorded Client Recorded Date Recorded By Document 08/21/24 10:00 EM [id number] 08/21/24 10:37 EM 08/21/24 10:00 NIH Stroke Scale [NIHSS] A score of 0 is "normal" or asymptomatic . Total possible score is 42. Inpatient: RN or Physician to activate a stroke alert for onset of new stroke symptoms or with NIHSS increase >/= 3 points. Following change in neurological status, NIHSS will be performed per physician order or more frequently PRN. -1a. Level of Consciousness 0 - Alert; keenly responsive -1b. LOC Questions 1 - Answers ONE question correctly -1c. LOC Commands 0 - Performs BOTH tasks correctly -2. Best Gaze 0 - Normal -3. Visual 0 - No visual loss -4. Facial Palsy 0 - Normal symmetrical movements -5a. Left Arm 0 - No drift; arm holds 90 ( or 45) degrees for full 10 seconds -5b. Right Arm 0 - No drift; arm holds 90 ( or 45) degrees for full 10 seconds -6a. Left Leg 0 - No drift; leg holds 30- degree position for full 5 seconds -6b. Right Leg 0 - No drift; leg holds 30- degree position for full 5 seconds -7. Limb Ataxia 0 - Absent -8. Sensory 0 - Normal; no sensory loss -9. Best Language 1 - Mild-to- moderate aphasia; -10. Dysarthria 1 = Mild-to- moderate dysarthria; -11. Extinction and Inattention 0 - No abnormality -Total 3 Query Text:A score of 0 is "normal" or asymptomatic. Total possible score is 42 . ED: Notify Physician for NIHSS increase by > / = 3 points. Inpatient: RN or Physician to activate a stroke alert for NIHSS increase of > / = 3 points. Coma Scale [Assess] -Eye Opening Spontaneous -Motor Obeys Commands -Verbal Confused [Total] -Coma Scale Total 14 08/21/24 1343 Cosigner Signature (if applicable): CC: ~ Signed [facility]05-09-2025 Progress note Author Isa Cruz [facility] Note Date/Time August 20, 2024 2:12pm [facility] Medical Records Department [address] [place] [address] Progress Note - Neurology 08/20/24 1401 MR#: [id number] Acct: [id number] Name: BEHZAD HAY Rep #:[id number] : 1940 84 From: Isa Cruz MD PCP: Tasha Deutsch, OUTREACH COORDINATOR Status:ADM IN Location: [place] [address] Objective Data Objective Data Vital Signs: Vital Signs Temp Pulse Resp BP Pulse Ox O2 Del Method 98 F 63 17 99/62 97 Room Air 08/20/24 10:23 08/20/24 10:23 08/20/24 10:23 08/20/24 10:23 08/20/24 10:23 08/20/24 10:23 Oxygen Delivery Method Room Air Weight: 51.8 kg Body Mass Index (BMI) 20.9 Intake & Output: Intake and Output for Last 24 Hours 08/18/24 08/19/24 08/20/24 23:59 23:59 23:59 Intake Total 50 / 50 50 / 50 670 / 670 Balance 50 / 50 50 / 50 670 / 670 Lab / Micro Data 08/19/24 05:55 08/19/24 05:55 Micro: Microbiology 08/18/24 11:35 Urine, Clean Catch Urine Culture - Final Escherichia coli 08/18/24 12:35 Blood Culture (Wb) - Left Hand Blood Culture - Preliminary No growth in 48 hours. 08/18/24 17:00 Blood Culture (Wb) - Anticubital Right Blood Culture - Preliminary No growth in 48 hours. Physical Exam Const Orientation / Consciousness: awake, oriented to person and oriented to place Neuro Neuro Narrative: Awake, alert, difficulty telling month Mild aphasia and dysarthria. Improved fluency since yesterday. CN 2-12 intact Power 5/5 Sensation: Intact Subject: Neurology Subjective BEHZAD HAY is a 84 year old F, who we are seeing in consultation todayfor advice on the management of stroke and related patient care. Improving speech. Noticed to be in Afib during hospitalization. Assessment and Plan: Stroke Assessment/Plan BEHZAD HAY is a 84 F with a history of paroxysmal atrial fibrillation in 2021 not on Ac and she who presents with confusion. Neurological examination shows mild aphasia and dysarthria. Neuroimaging shows CTA: Mild atherosclerosis bilateral ICA, carotid siphons, MCA and RACHEL, MRI: Leftfronto parietal stroke LDL 112. ECHO = Ef 65%, LA mildly enlarged. She has beenin AFib during her hospitalization Left MCA stroke likely from atrial fibrillation Plan On ASA, plavix. 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 HLD: Statin to keep LDL <70. For her left supraclinoid ICA terminus aneurysm can f/up with NSY routinely as out patient PT OT, speech, swallow evaluation Stroke education Thanks for the consultation. Spent 30 min in evaluation and management of the patient. NIHSS NIHSS Nursing Documentation NIHSS Nursing Documentation: NIHSS: Ischemic Stroke/TIA Start: 08/18/24 16:47 Text: For PCU Patients: NIH and Neuro Check every 4 Status: Active hours, PRN and with change in RN caregiver. Freq: [id number] Protocol: Activity Type Activity Date Activity User E-sign Co-sign Detail Recorded Client Recorded Date Recorded By Document 08/20/24 10:23 DS [id number] 08/20/24 10:26 DS 08/20/24 10:23 NIH Stroke Scale [NIHSS] A score of 0 is "normal" or asymptomatic . Total possible score is 42. Inpatient: RN or Physician to activate a stroke alert for onset of new stroke symptoms or with NIHSS increase >/= 3 points. Following change in neurological status, NIHSS will be performed per physician order or more frequently PRN. -1a. Level of Consciousness 0 - Alert; keenly responsive -1b. LOC Questions 0 - Answers BOTH questions correctly -1c. LOC Commands 0 - Performs BOTH tasks correctly -2. Best Gaze 0 - Normal -3. Visual 0 - No visual loss -4. Facial Palsy 0 - Normal symmetrical movements -5a. Left Arm 0 - No drift; arm holds 90 ( or 45) degrees for full 10 seconds -5b. Right Arm 0 - No drift; arm holds 90 ( or 45) degrees for full 10 seconds -6a. Left Leg 0 - No drift; leg holds 30- degree position for full 5 seconds -6b. Right Leg 0 - No drift; leg holds 30- degree position for full 5 seconds -7. Limb Ataxia 1 - Present in 1 limb -8. Sensory 1 - Mild-to- moderate sensory loss; -9. Best Language 1 - Mild-to- moderate aphasia; -10. Dysarthria 1 = Mild-to- moderate dysarthria; -11. Extinction and Inattention 0 - No abnormality -Total 4 Query Text:A score of 0 is "normal" or asymptomatic. Total possible score is 42 . ED: Notify Physician for NIHSS increase by > / = 3 points. Inpatient: RN or Physician to activate a stroke alert for NIHSS increase of > / = 3 points. Coma Scale [Assess] -Eye Opening Spontaneous -Motor Obeys Commands -Verbal Oriented [Total] -Coma Scale Total 15 NIHSS 1a. Level of Consciousness: 0 - Alert; keenly responsive 1b. LOC Questions: 0 - Answers BOTH questions correctly 1c. LOC Commands: 0 - Performs BOTH tasks correctly 2. Best Gaze: 0 - Normal 3. Visual: 0 - No visual loss 4. Facial Palsy: 0 - Normal symmetrical movements 5a. Left Arm: 0 - No drift; arm holds 90 (or 45) degrees for full 10 seconds 5b. Right Arm: 0 - No drift; arm holds 90 (or 45) degrees for full 10 seconds 6a. Left Le - No drift; leg holds 30-degree position for full 5 seconds 6b. Right Le - No drift; leg holds 30-degree position for full 5 seconds 7. Limb Ataxia: 0 - Absent 8. Sensory: 0 - Normal; no sensory loss 9. Best Language: 1 - Uedj-tx-pcrvyzwi aphasia; 10. Dysarthria: 1 = Ijxj-gc-quukvkqz dysarthria; 11. Extinction and Inattention: 0 - No abnormality Total: 2 08/20/24 1412 <Electronically signed by Isa Cruz MD> Cosigner Signature (if applicable): CC: ~ Signed [facility] Work Phone: 1(432) 899-820105-09-2025 Progress note [facility] Medical Records Department [address] [place] [address] Progress Note - Neurology 08/20/24 1401 MR#: [id number] Acct: [id number] Name: BEHZAD HAY Rep #:[id number] : 1940 84 From: Isa Cruz MD PCP: Tasha Deutsch, OUTREACH COORDINATOR Status:ADM IN Location: [place] [address] Objective Data Objective Data Vital Signs: Vital Signs Temp Pulse Resp BP Pulse Ox O2 Del Method 98 F 63 17 99/62 97 Room Air 08/20/24 10:23 08/20/24 10:23 08/20/24 10:23 08/20/24 10:23 08/20/24 10:23 08/20/24 10:23 Oxygen Delivery Method Room Air Weight: 51.8 kg Body Mass Index (BMI) 20.9 Intake & Output: Intake and Output for Last 24 Hours 08/18/24 08/19/24 08/20/24 23:59 23:59 23:59 Intake Total 50 / 50 50 / 50 670 / 670 Balance 50 / 50 50 / 50 670 / 670 Lab / Micro Data 08/19/24 05:55 08/19/24 05:55 Micro: Microbiology 08/18/24 11:35 Urine, Clean Catch Urine Culture - Final Escherichia coli 08/18/24 12:35 Blood Culture (Wb) - Left Hand Blood Culture - Preliminary No growth in 48 hours. 08/18/24 17:00 Blood Culture (Wb) - Anticubital Right Blood Culture - Preliminary No growth in 48 hours. Physical Exam Const Orientation / Consciousness: awake, oriented to person and oriented to place Neuro Neuro Narrative: Awake, alert, difficulty telling month Mild aphasia and dysarthria. Improved fluency since yesterday. CN 2-12 intact Power 5/5 Sensation: Intact Subject: Neurology Subjective BEHZAD HAY is a 84 year old F, who we are seeing in consultation todayfor advice on the management of stroke and related patient care. Improving speech. Noticed to be in Afib during hospitalization. Assessment and Plan: Stroke Assessment/Plan BEHZAD HAY is a 84 F with a history of paroxysmal atrial fibrillation in 2021 not on Ac and she who presents with confusion. Neurological examination shows mild aphasia and dysarthria. Neuroimaging shows CTA: Mild atherosclerosis bilateral ICA, carotid siphons, MCA and RACHEL, MRI: Leftfronto parietal stroke LDL 112. ECHO = Ef 65%, LA mildly enlarged. She has beenin AFib during her hospitalization Left MCA stroke likely from atrial fibrillation Plan On ASA, plavix. 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 HLD: Statin to keep LDL <70. For her left supraclinoid ICA terminus aneurysm can f/up with NSY routinely as out patient PT OT, speech, swallow evaluation Stroke education Thanks for the consultation. Spent 30 min in evaluation and management of the patient. NIHSS NIHSS Nursing Documentation NIHSS Nursing Documentation: NIHSS: Ischemic Stroke/TIA Start: 08/18/24 16:47 Text: For PCU Patients: NIH and Neuro Check every 4 Status: Active hours, PRN and with change in RN caregiver. Freq: [id number] Protocol: Activity Type Activity Date Activity User E-sign Co-sign Detail Recorded Client Recorded Date Recorded By Document 08/20/24 10:23 DS [id number] 08/20/24 10:26 DS 08/20/24 10:23 NIH Stroke Scale [NIHSS] A score of 0 is "normal" or asymptomatic . Total possible score is 42. Inpatient: RN or Physician to activate a stroke alert for onset of new stroke symptoms or with NIHSS increase >/= 3 points. Following change in neurological status, NIHSS will be performed per physician order or more frequently PRN. -1a. Level of Consciousness 0 - Alert; keenly responsive -1b. LOC Questions 0 - Answers BOTH questions correctly -1c. LOC Commands 0 - Performs BOTH tasks correctly -2. Best Gaze 0 - Normal -3. Visual 0 - No visual loss -4. Facial Palsy 0 - Normal symmetrical movements -5a. Left Arm 0 - No drift; arm holds 90 ( or 45) degrees for full 10 seconds -5b. Right Arm 0 - No drift; arm holds 90 ( or 45) degrees for full 10 seconds -6a. Left Leg 0 - No drift; leg holds 30- degree position for full 5 seconds -6b. Right Leg 0 - No drift; leg holds 30- degree position for full 5 seconds -7. Limb Ataxia 1 - Present in 1 limb -8. Sensory 1 - Mild-to- moderate sensory loss; -9. Best Language 1 - Mild-to- moderate aphasia; -10. Dysarthria 1 = Mild-to- moderate dysarthria; -11. Extinction and Inattention 0 - No abnormality -Total 4 Query Text:A score of 0 is "normal" or asymptomatic. Total possible score is 42 . ED: Notify Physician for NIHSS increase by > / = 3 points. Inpatient: RN or Physician to activate a stroke alert for NIHSS increase of > / = 3 points. Coma Scale [Assess] -Eye Opening Spontaneous -Motor Obeys Commands -Verbal Oriented [Total] -Coma Scale Total 15 NIHSS 1a. Level of Consciousness: 0 - Alert; keenly responsive 1b. LOC Questions: 0 - Answers BOTH questions correctly 1c. LOC Commands: 0 - Performs BOTH tasks correctly 2. Best Gaze: 0 - Normal 3. Visual: 0 - No visual loss 4. Facial Palsy: 0 - Normal symmetrical movements 5a. Left Arm: 0 - No drift; arm holds 90 (or 45) degrees for full 10 seconds 5b. Right Arm: 0 - No drift; arm holds 90 (or 45) degrees for full 10 seconds 6a. Left Le - No drift; leg holds 30-degree position for full 5 seconds 6b. Right Le - No drift; leg holds 30-degree position for full 5 seconds 7. Limb Ataxia: 0 - Absent 8. Sensory: 0 - Normal; no sensory loss 9. Best Language: 1 - Epdn-wq-jysmnrnh aphasia; 10. Dysarthria: 1 = Fkrz-sk-kgecgluk dysarthria; 11. Extinction and Inattention: 0 - No abnormality Total: 2 08/20/24 1412 Cosigner Signature (if applicable): CC: ~ Signed [facility]05-09-2025 Progress note Author Mara Mar [facility] Note Date/Time August 20, 2024 11:51a m [facility] Medical Records Department [address] [place] [address] Progress Note - Hospitalist 08/20/24 1140 MR#: [id number] Acct: [id number] Name: BEHZAD HAY Rep #:[id number] : 1940 84 From: Mara Mar DO PCP: Tasha Deutsch, OUTREACH COORDINATOR Status:ADM IN Location: [place] [id number] Reason for Visit Reason for Visit: Confusion/dysarthria/dysmetria right-sided Subjective Subjective Patient has no complaints. Awaiting acceptance at rehab and if we can get it today we will start pre-CERT. Anticipate patient will be here through the weekend. This was discussed with her. She is asking if family can come visit her through the weekend and we told her of course. She is worried about Mother's Day. Objective Data Objective Data Vital Signs: Vital Signs Temp Pulse Resp BP Pulse Ox O2 Del Method 98 F 63 17 99/62 97 Room Air 08/20/24 10:23 08/20/24 10:23 08/20/24 10:23 08/20/24 10:23 08/20/24 10:23 08/20/24 10:23 Oxygen Delivery Method Room Air Weight: 51.8 kg Body Mass Index (BMI) 20.9 Intake & Output: Intake and Output for Last 24 Hours 08/18/24 08/19/24 08/20/24 23:59 23:59 23:59 Intake Total 50 / 50 50 / 50 Balance 50 / 50 50 / 50 Lab / Micro Data 08/19/24 05:55 08/19/24 05:55 Micro: Microbiology 08/18/24 11:35 Urine, Clean Catch Urine Culture - Final Escherichia coli 08/18/24 12:35 Blood Culture (Wb) - Left Hand Blood Culture - Preliminary No growth in 48 hours. 08/18/24 17:00 Blood Culture (Wb) - Anticubital Right Blood Culture - Preliminary No growth in 48 hours. Radiography Diagnostic Testing: Radiology Impression Echocardiogram 08/18/24 13:14 Interpretation Summary The LV systolic function is normal. EF is 65 %. Diastolic function is indeterminate. The left atrium is mildly enlarged. Mild focal mitral valve calcification of the posterior leaflet. Mildly calcified aortic valve. Aortic valve sclerosis without stenosis. Mildly calcified aortic root. Ordering Physician: Mara Mar Performed By: Abelardo Romero RCS Physical Exam Const alert, no apparent distress, average body habitus and well nourished Constitutional Narrative: Very pleasant elderly, sitting up in chair at the bedside, appears comfortable, nontoxic, oriented to self and place confused on time General Appearance: cooperative HEENT normocephalic and head/scalp atraumatic Neuro Neuro Narrative: dysmetria, expressive aphasia, Sensorium / Orientation: awake, alert, oriented to person and oriented to place;Negative for oriented to time Speech: Negative for speech normal Psych affect normal Psych Narrative: very pleasant Assessment & Plan Assessment/Plan (1) Dysarthria: (2) Dysmetria: (3) Abnormal urinalysis: PLAN: Plan Acute L MCA stroke - shows Acute infarct of L frontoparietal lobe with MCA infarct territory - Continue atorvastatin 40 mg daily - Continue Plavix 75 mg daily and aspirin 81 mg daily until until can start Eliquis at 3 to 5 days after symptoms which would be 08/21/2024 -Will plan on starting Eliquis tomorrow - CTA head and neck showed 40% distal basilar aa, with diffuse irregularities, 2-3 mm saccular aneurysm at the terminal supraclinoid L ICA -needs outpt follow-up - Echo shows EF 65% and no valvular disease - TC 189/WWQ482/HDL 62/trigs of 75 - A1c 5.7 - NIH per protocol - Neuro has seen and given recommendations and signed off - Current deficits are dysmetria on the right upper and lower extremity, weakness on the right upper and lower extremity, and some speech issues dysarthria and some expressive aphasia E. coli UTI - E. coli is pansensitive so we will transition to Keflex to complete a 5-day course - Today is day 3 of 5 CKD Stage IIIb -creat at baseline -monitor periodically Essential hypertension -Discontinue lisinopril - Continue metoprolol added for her paroxysmal atrial fibrillation - Will likely discontinue lisinopril completely at discharge Osteoarthritis - As needed Tylenol available PAF - Noted in documentation from 2021 in the emergency department at which time shespontaneously converted -Patient has been in and out of atrial fibrillation during this hospitalization but currently in normal sinus rhythm -Continue metoprolol 50 mg p.o. twice daily -Will start Eliquis tomorrow 5 mg p.o. twice daily - TSH WNL DVT prophylaxis - Continue enoxaparin 40 mg until Eliquis can be initiated then discontinue enoxaparin CODE STATUS - Full code Charges/Coding Visit Charges Inpatient E&M: 37257 Subs Hosp L1 NIHSS NIHSS Nursing Documentation NIHSS Nursing Documentation: NIHSS: Ischemic Stroke/TIA Start: 08/18/24 16:47 Text: For PCU Patients: NIH and Neuro Check every 4 Status: Active hours, PRN and with change in RN caregiver. Freq: [id number] Protocol: Activity Type Activity Date Activity User E-sign Co-sign Detail Recorded Client Recorded Date Recorded By Document 08/20/24 10:23 DS [id number] 08/20/24 10:26 DS 08/20/24 10:23 NIH Stroke Scale [NIHSS] A score of 0 is "normal" or asymptomatic . Total possible score is 42. Inpatient: RN or Physician to activate a stroke alert for onset of new stroke symptoms or with NIHSS increase >/= 3 points. Following change in neurological status, NIHSS will be performed per physician order or more frequently PRN. -1a. Level of Consciousness 0 - Alert; keenly responsive -1b. LOC Questions 0 - Answers BOTH questions correctly -1c. LOC Commands 0 - Performs BOTH tasks correctly -2. Best Gaze 0 - Normal -3. Visual 0 - No visual loss -4. Facial Palsy 0 - Normal symmetrical movements -5a. Left Arm 0 - No drift; arm holds 90 ( or 45) degrees for full 10 seconds -5b. Right Arm 0 - No drift; arm holds 90 ( or 45) degrees for full 10 seconds -6a. Left Leg 0 - No drift; leg holds 30- degree position for full 5 seconds -6b. Right Leg 0 - No drift; leg holds 30- degree position for full 5 seconds -7. Limb Ataxia 1 - Present in 1 limb -8. Sensory 1 - Mild-to- moderate sensory loss; -9. Best Language 1 - Mild-to- moderate aphasia; -10. Dysarthria 1 = Mild-to- moderate dysarthria; -11. Extinction and Inattention 0 - No abnormality -Total 4 Query Text:A score of 0 is "normal" or asymptomatic. Total possible score is 42 . ED: Notify Physician for NIHSS increase by > / = 3 points. Inpatient: RN or Physician to activate a stroke alert for NIHSS increase of > / = 3 points. Coma Scale [Assess] -Eye Opening Spontaneous -Motor Obeys Commands -Verbal Oriented [Total] -Coma Scale Total 15 08/20/24 1150 <Electronically signed by Mara Mar DO> Cosigner Signature (if applicable): CC: ~ Signed ADDENDUM by Dr. Mara Mar DO on 08/20/24 at 1151 Addendum Disposition: Patient is medically ready for discharge and has been medically stabilized and optimized for discharge since 08/19/2024. Awaiting acceptance hopefully at acute rehab if not transitional care unit and then will need pre-CERT from [employer] prior to discharge 08/20/24 1151<Electronically signed by Mara Mar DO> Cosigner Signature (if applicable): cc: ~* Signed [facility] Work Phone: 1(280) 621-972405-09-2025 Progress note [facility] Medical Records Department [address] [place] [address] Progress Note - Hospitalist 08/20/24 1140 MR#: [id number] Acct: [id number] Name: BEHZAD HAY Rep #:[id number] : 1940 84 From: Mara Mar DO PCP: Tasha Deutsch, OUTREACH COORDINATOR Status:ADM IN Location: [place] [address] Reason for Visit Reason for Visit: Confusion/dysarthria/dysmetria right-sided Subjective Subjective Patient has no complaints. Awaiting acceptance at rehab and if we can get it today we will start pre-CERT. Anticipate patient will be here through the weekend. This was discussed with her. She is asking if family can come visit her through the weekend and we told her of course. She is worried aboutMother's Day. Objective Data Objective Data Vital Signs: Vital Signs Temp Pulse Resp BP Pulse Ox O2 Del Method 98 F 63 17 99/62 97 Room Air 08/20/24 10:23 08/20/24 10:23 08/20/24 10:23 08/20/24 10:23 08/20/24 10:23 08/20/24 10:23 Oxygen Delivery Method Room Air Weight: 51.8 kg Body Mass Index (BMI) 20.9 Intake & Output: Intake and Output for Last 24 Hours 08/18/24 08/19/24 08/20/24 23:59 23:59 23:59 Intake Total 50 / 50 50 / 50 Balance 50 / 50 50 / 50 Lab / Micro Data 08/19/24 05:55 08/19/24 05:55 Micro: Microbiology 08/18/24 11:35 Urine, Clean Catch Urine Culture - Final Escherichia coli 08/18/24 12:35 Blood Culture (Wb) - Left Hand Blood Culture - Preliminary No growth in 48 hours. 08/18/24 17:00 Blood Culture (Wb) - Anticubital Right Blood Culture - Preliminary No growth in 48 hours. Radiography Diagnostic Testing: Radiology Impression Echocardiogram 08/18/24 13:14 Interpretation Summary The LV systolic function is normal. EF is 65 %. Diastolic function is indeterminate. The left atrium is mildly enlarged. Mild focal mitral valve calcification of the posterior leaflet. Mildly calcified aortic valve. Aortic valve sclerosis without stenosis. Mildly calcified aortic root. Ordering Physician: Mara Mar Performed By: Abelardo Romero RCS Physical Exam Const alert, no apparent distress, average body habitus and well nourished Constitutional Narrative: Very pleasant elderly, sitting up in chair at the bedside, appears comfortable, nontoxic, oriented to self and place confused on time General Appearance: cooperative HEENT normocephalic and head/scalp atraumatic Neuro Neuro Narrative: dysmetria, expressive aphasia, Sensorium / Orientation: awake, alert, oriented to person and oriented to place;Negative for oriented to time Speech: Negative for speech normal Psych affect normal Psych Narrative: very pleasant Assessment & Plan Assessment/Plan (1) Dysarthria: (2) Dysmetria: (3) Abnormal urinalysis: PLAN: Plan Acute L MCA stroke - shows Acute infarct of L frontoparietal lobe with MCA infarct territory - Continue atorvastatin 40 mg daily - Continue Plavix 75 mg daily and aspirin 81 mg daily until until can start Eliquis at 3 to 5 days after symptoms which would be 08/21/2024 -Will plan on starting Eliquis tomorrow - CTA head and neck showed 40% distal basilar aa, with diffuse irregularities, 2-3 mm saccular aneurysm at the terminal supraclinoid L ICA -needs outpt follow-up - Echo shows EF 65% and no valvular disease - TC 189/JUD290/HDL 62/trigs of 75 - A1c 5.7 - NIH per protocol - Neuro has seen and given recommendations and signed off - Current deficits are dysmetria on the right upper and lower extremity, weakness on the right upper and lower extremity, and some speech issues dysarthria and some expressive aphasia E. coli UTI - E. coli is pansensitive so we will transition to Keflex to complete a 5-day course - Today is day 3 of 5 CKD Stage IIIb -creat at baseline -monitor periodically Essential hypertension -Discontinue lisinopril - Continue metoprolol added for her paroxysmal atrial fibrillation - Will likely discontinue lisinopril completely at discharge Osteoarthritis - As needed Tylenol available PAF - Noted in documentation from 2021 in the emergency department at which time shespontaneously converted -Patient has been in and out of atrial fibrillation during this hospitalization but currently in normal sinus rhythm -Continue metoprolol 50 mg p.o. twice daily -Will start Eliquis tomorrow 5 mg p.o. twice daily - TSH WNL DVT prophylaxis - Continue enoxaparin 40 mg until Eliquis can be initiated then discontinue enoxaparin CODE STATUS - Full code Charges/Coding Visit Charges Inpatient E&M: 45434 Subs Hosp L1 NIHSS NIHSS Nursing Documentation NIHSS Nursing Documentation: NIHSS: Ischemic Stroke/TIA Start: 08/18/24 16:47 Text: For PCU Patients: NIH and Neuro Check every 4 Status: Active hours, PRN and with change in RN caregiver. Freq: [id number] Protocol: Activity Type Activity Date Activity User E-sign Co-sign Detail Recorded Client Recorded Date Recorded By Document 08/20/24 10:23 DS [id number] 08/20/24 10:26 DS 08/20/24 10:23 NIH Stroke Scale [NIHSS] A score of 0 is "normal" or asymptomatic . Total possible score is 42. Inpatient: RN or Physician to activate a stroke alert for onset of new stroke symptoms or with NIHSS increase >/= 3 points. Following change in neurological status, NIHSS will be performed per physician order or more frequently PRN. -1a. Level of Consciousness 0 - Alert; keenly responsive -1b. LOC Questions 0 - Answers BOTH questions correctly -1c. LOC Commands 0 - Performs BOTH tasks correctly -2. Best Gaze 0 - Normal -3. Visual 0 - No visual loss -4. Facial Palsy 0 - Normal symmetrical movements -5a. Left Arm 0 - No drift; arm holds 90 ( or 45) degrees for full 10 seconds -5b. Right Arm 0 - No drift; arm holds 90 ( or 45) degrees for full 10 seconds -6a. Left Leg 0 - No drift; leg holds 30- degree position for full 5 seconds -6b. Right Leg 0 - No drift; leg holds 30- degree position for full 5 seconds -7. Limb Ataxia 1 - Present in 1 limb -8. Sensory 1 - Mild-to- moderate sensory loss; -9. Best Language 1 - Mild-to- moderate aphasia; -10. Dysarthria 1 = Mild-to- moderate dysarthria; -11. Extinction and Inattention 0 - No abnormality -Total 4 Query Text:A score of 0 is "normal" or asymptomatic. Total possible score is 42 . ED: Notify Physician for NIHSS increase by > / = 3 points. Inpatient: RN or Physician to activate a stroke alert for NIHSS increase of > / = 3 points. Coma Scale [Assess] -Eye Opening Spontaneous -Motor Obeys Commands -Verbal Oriented [Total] -Coma Scale Total 15 08/20/24 1150 Cosigner Signature (if applicable): CC: ~ Signed ADDENDUM by Dr. Mara Mar DO on 08/20/24 at 1151 Addendum Disposition: Patient is medically ready for discharge and has been medically stabilized and optimized for discharge since 08/19/2024. Awaiting acceptance hopefully at acute rehab if not transitional care unit and then will need pre-CERT from [facility] prior to discharge 08/20/24 1151 Cosigner Signature (if applicable): cc: ~* Signed [facility]05-08-2025 Progress note Author Mara Mar [facility] Note Date/Time August 19, 2024 4:41pm [facility] Medical Records Department [address] [place] [address] [place] [address] Progress Note - Hospitalist 08/19/24 4020 MR#: [id number] Acct: [id number] Name: BEHZAD HAY Rep #:[id number] : 1940 84 From: Mara Mar DO PCP: Tasha Deutsch, OUTREACH COORDINATOR Status:ADM IN Location: [place] [address] Reason for Visit Reason for Visit: Confusion/dysarthria/dysmetria right-sided Objective Data Objective Data Vital Signs: Vital Signs Temp Pulse Resp BP Pulse Ox O2 Del Method 97.7 F L 88 16 136/99 H 96 Room Air 08/19/24 15:20 08/19/24 15:20 08/19/24 15:20 08/19/24 15:20 08/19/24 15:20 08/19/24 15:20 Oxygen Delivery Method Room Air Weight: 51.8 kg Body Mass Index (BMI) 20.9 Intake & Output: Intake and Output for Last 24 Hours 08/17/24 08/18/24 08/19/24 23:59 23:59 23:59 Intake Total 50 / 50 50 / 50 Balance 50 / 50 50 / 50 Lab / Micro Data 08/19/24 05:55 08/19/24 05:55 Labs: Laboratory Results - last 24 hr 08/19/24 05:55: WBC 5.9, RBC 3.81 L, Hgb 11.8 L, Hct 36.9 L, MCV 96.9, MCH 31.0,MCHC 32.0, RDW Std Deviation 46.8 H, RDW Coeff of Dalton 13.1, Plt Count 237, MPV 8.9, Immature Gran % (Auto) 0.300, Neut % (Auto) 67.8, Lymph % (Auto) 18.3 L, Waller % (Auto) 8.5, Eos % (Auto) 3.9, Baso % (Auto) 1.2 H, Absolute Neuts (auto) 4.0, Absolute Lymphs (auto) 1.07, Nucleated RBC % 0, Sodium 140, Potassium 4.3, Chloride 106, Carbon Dioxide 23.7, Anion Gap 10, BUN 17, Creatinine 0.84, Estim Creat Clear Calc 38.02 L, Est GFR (MDRD) Non-Af 68, BUN/Creatinine Ratio 20.6 H,Glucose 102 H, Calcium 9.1, Phosphorus 3.2, Magnesium 2.3 H, Total Bilirubin 0.36, AST 33 H, ALT 18, Alkaline Phosphatase 70, Total Protein 6.3, Albumin 3.7,Globulin 2.6, Albumin/Globulin Ratio 1.4, Triglycerides 75, Cholesterol 189, LDLCholesterol, Calc 112, VLDL Cholesterol 15, HDL Cholesterol 62, Cholesterol/HDL Ratio 3.03, TSH 1.590 Micro: Microbiology 08/18/24 11:35 Urine, Clean Catch Urine Culture - Preliminary Gram negative oliva Radiography Diagnostic Testing: Radiology Impression Brain MRI 08/18/24 13:14 IMPRESSION: Acute infarct left frontoparietal lobe as described above, compatible with and MCA distribution infarct. Local mass effect without midline shift. Chronic microvascular ischemia and involutional changes. Red Alert: The critical information above was relayed directly by me by telephone to JESIKA Paulino on 08/18/2024 at 6:39 pm with readback verification. Reading [facility] Echocardiogram 08/18/24 13:14 Interpretation Summary The LV systolic function is normal. EF is 65 %. Diastolic function is indeterminate. The left atrium is mildly enlarged. Mild focal mitral valve calcification of the posterior leaflet. Mildly calcified aortic valve. Aortic valve sclerosis without stenosis. Mildly calcified aortic root. Ordering Physician: Mara Mar Performed By: Abelardo Romero RCS Physical Exam Const alert, no apparent distress, average body habitus and well nourished Constitutional Narrative: Very pleasant elderly, mildly confused, white female, sitting up in bed, appearscomfortable, non-toxic General Appearance: cooperative HEENT normocephalic, head/scalp atraumatic and moist oral mucous membranes Eyes PERRL, EOMs intact bilaterally and conjunctivae normal Neck no lymphadenopathy, supple and no carotid bruits Neck Narrative: trachea midline, no thyroid enlargement Resp normal respiratory effort, no retractions, no use of accessory muscles and clearto auscultation bilaterally Auscultation: Negative for rales, rhonchi or wheezes Cardio regular rate, regular rhythm, S1 normal heart sound, S2 normal heart sound, no murmurs, no rub, no gallops and no clicks GI normal to inspection, nondistended, normoactive bowel sounds, soft to palpation and non-tender Extremity no clubbing, cyanosis or edema Extremity Narrative: 2+ pedal and radial pulses Skin skin turgor normal, no jaundice, no petechiae and no mottling Neuro CN's II-XII intact bilaterally Neuro Narrative: dysmetria, expressive aphasia, Sensorium / Orientation: awake, alert, oriented to person and oriented to place;Negative for oriented to time Speech: Negative for speech normal Psych affect normal Psych Narrative: very pleasant Assessment & Plan Assessment/Plan (1) Dysarthria: (2) Dysmetria: (3) Abnormal urinalysis: PLAN: Plan Acute L MCA stroke - Highly suspect patient has acute infarct - Cont aspirin 81 mg daily - Continue atorvastatin 40 mg daily - Plavix started 75 mg and will continue until until can start Eliquis in 3-5 day - CTA head and neck showed 40% distal basilar aa, with diffuse irregularities, 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 coli UTI - Culture result pending - continue ceftriaxone 1 g daily CKD Stage IIIb -creat at baseline -monitor Essential hypertension - Hold home lisinopril - Allow for permissive hypertension with symptoms on presentation - Blood pressure control per stroke protocol with as needed medications Osteoarthritis - As needed Tylenol available History of paroxysmal atrial fibrillation - Noted in documentation from 2021 in the emergency department at which time shespontaneously converted - It does not appear she is on any anticoagulation and was not discharged on anyat that time. History otherwise is unclear - TSH WNL - did flip into a-fib this am - started metoprolol 50 mg po BID - start eliquis 5 mg po BID in 3-5 days to avoid hemorrhagic transformation DVT prophylaxis - Continue enoxaparin 40 mg CODE STATUS - Full code Charges/Coding Visit Charges Inpatient E&M: 57708 Subs Hosp L2 NIHSS NIHSS Nursing Documentation NIHSS Nursing Documentation: NIHSS: Ischemic Stroke/TIA Start: 08/18/24 16:47 Text: For PCU Patients: NIH and Neuro Check every 4 Status: Active hours, PRN and with change in RN caregiver. Freq: [id number] Protocol: Activity Type Activity Date Activity User E-sign Co-sign Detail Recorded Client Recorded Date Recorded By Document 08/19/24 15:20 ELISE [id number] 08/19/24 15:32 ELISE 08/19/24 15:20 NIH Stroke Scale [NIHSS] A score of 0 is "normal" or asymptomatic . Total possible score is 42. Inpatient: RN or Physician to activate a stroke alert for onset of new stroke symptoms or with NIHSS increase >/= 3 points. Following change in neurological status, NIHSS will be performed per physician order or more frequently PRN. -1a. Level of Consciousness 0 - Alert; keenly responsive -1b. LOC Questions 1 - Answers ONE question correctly -1c. LOC Commands 0 - Performs BOTH tasks correctly -2. Best Gaze 0 - Normal -3. Visual 0 - No visual loss -4. Facial Palsy 0 - Normal symmetrical movements -5a. Left Arm 0 - No drift; arm holds 90 ( or 45) degrees for full 10 seconds -5b. Right Arm 0 - No drift; arm holds 90 ( or 45) degrees for full 10 seconds -6a. Left Leg 0 - No drift; leg holds 30- degree position for full 5 seconds -6b. Right Leg 0 - No drift; leg holds 30- degree position for full 5 seconds -7. Limb Ataxia 0 - Absent -8. Sensory 0 - Normal; no sensory loss -9. Best Language 1 - Mild-to- moderate aphasia; -10. Dysarthria 1 = Mild-to- moderate dysarthria; -11. Extinction and Inattention 0 - No abnormality -Total 3 Query Text:A score of 0 is "normal" or asymptomatic. Total possible score is 42 . ED: Notify Physician for NIHSS increase by > / = 3 points. Inpatient: RN or Physician to activate a stroke alert for NIHSS increase of > / = 3 points. Coma Scale [Assess] -Eye Opening Spontaneous -Motor Obeys Commands -Verbal Confused [Total] -Coma Scale Total 14 08/19/24 1641 <Electronically signed by Mara Mar DO> Cosigner Signature (if applicable): CC: ~ Signed [facility] Work Phone: [phone]) 931-970605-08-2025 Discharge summary Author Fawad Cordon [facility] Note Date/Time August 19, 2024 2:57pm [facility] Medical Records Department [address] [place] [address] Emergency Department Summary 08/18/24 MR#: [id number] Acct: [id number] Name: BEHZAD HAY Rep #:[id number] : 1940 84 From: Fawad Last PCP: Tasha Deutsch, OUTREACH COORDINATOR Status:ADM IN Location: [address] History of Present Illness Chief Complaint: Neuro S/Sx Informant: patient and family Narrative Narrative: 84-year-old female presenting to the emergency room out of concern for needing MRI. Patient was seen in the emergency room about 2 days ago with an episode ofconfusion where she could not figure out how to get her garage door open by pushing the button. Her workup was negative and is reported that she had an NIHof 0. There was discussion about admitting for a MRI but patient was dischargedhome after discussion with family. Another family member brings her in today stating that the patient continues to have episodes of confusion and now having difficulty with control on the right side of her arm and leg. They note some speech change. They note that today she was unable to relieve use the spoon to feed herself. They state instead of taking her pills with her right hand she isusing her left hand. They note that she does not seem to walk as well with the right leg. Patient denies any vision change. She states she has a hard time finding certain words. Family notes that yesterday she went to converse with the neighbors and was very confused. Patient denies any cough or difficulty swallowing. Patient states that she fell using the bathroom last night but did not injure herself. [facility] Medical History Osteoarthritis CKD (chronic kidney disease), stage III Fe deficiency anemia Home Medications ?Medication ?Instructions ?Recorded ?Last Taken ?Type lisinopril 30 mg tablet 30 mg PO DAILY 08/16/2411/05 History multivitamin (Daily Multi-Vitamin 1 tab PO DAILY 08/1608/18/24 History tablet) Allergy/AdvReac Type Severity Reaction Status Date / Time nitrofurantoin (From Allergy Rash Verified 08/18/24 09:54 Macrobid) Surgical History Hx of tonsillectomy Social History household members: none Smoking Status: Never smoker alcohol intake: never substance use type: does not use ROS ROS ED Constitutional Constitutional ED: Denies chills, fever(s) or weight loss Eyes Eyes: Denies change in vision or diplopia ENT ENT ED: Denies ear pain, rhinorrhea or sore throat Cardiovascular Cardiovascular: Denies chest pain, orthopnea, palpitations or racing heartbeat Respiratory/Chest Respiratory/Chest: Denies cough, dyspnea or orthopnea Gastrointestinal Gastrointestinal: Denies abdominal pain, diarrhea, nausea or vomiting Genitourinary Genitourinary ED: Denies dysuria, hematuria or urinary frequency Musculoskeletal Musculoskeletal: Denies arthralgias or myalgias Integumentary Denies abscess or rash Neurologic Neurologic: Reports weakness and other Details: Confusion speech difficulty ; Denies headache(s) Psychiatric Psychiatric: Denies anxiety, depression, suicidal ideation or suicidal thoughts Endocrine Endocrinology: Denies polydipsia, polyphagia or polyuria Allergic/Immunologic Allergic/Immunologic ED: Denies mouth swelling, tongue swelling or urticaria EXAM Physical Exam Const Vital Signs: 08/18/24 09:54 08/18/24 10:52 08/18/24 11:00 Temperature 98 F Temperature Source Oral Pulse Rate 81 69 71 Respiratory Rate 15 14 14 Blood Pressure 187/89 H 165/72 H 152/87 H Blood Pressure Mean 121 103 108 Pulse Ox 100 99 Oxygen Delivery Method Room Air Room Air Room Air 08/18/24 12:36 08/18/24 13:00 08/18/24 14:00 Temperature Temperature Source Pulse Rate 78 83 79 Respiratory Rate 16 13 21 H Blood Pressure 179/85 H 189/79 H 181/101 H Blood Pressure Mean 116 115 127 Pulse Ox 96 Oxygen Delivery Method Room Air Room Air Positive well nourished and well developed General Appearance ED: well developed and NAD HEENT Reports normocephalic, head/scalp atraumatic and moist mucous membranes Eyes PERRL and EOMs intact bilaterally Neck no lymphadenopathy, supple and no JVD General: Negative for tenderness Resp normal respiratory effort and clear to auscultation bilaterally Cardio regular rate, regular rhythm and no murmurs GI normal to inspection, nondistended, normoactive bowel sounds and non-tender Palpation: soft Back/Spine no CVA tenderness and normal ROM Extremity normal to inspection General Extremety ED: Negative for edema General Extremity: Negative for edema Neuro oriented x3 and no sensory deficits noted Paul Coma Scale: document GCS findings Spontaneous Obeys Commands Oriented 15 Sensorium / Orientation: alert Motor Exam: strength 5/5 throughout Psych mental status grossly normal Mood & Affect: Negative for depressed or tearful Skin no rashes or lesions noted Skin Narrative: Small abrasion (less than half centimeter) to the dorsum of the right hand MDM MDM MDM Narrative Medical decision making narrative: Differential diagnosis includes stroke UTI sepsis dehydration electrolyte abnormalities acute kidney injury liver dysfunction pneumonia Patient's white count was 8.4 hemoglobin 13 platelet count of 254. Creatinine is 1 BUN of 27 urinalysis with 10-25 white cells 3+ bacteria positive nitrates positive leukocyte Estrace. This is a change from her urine specimen just 2 days ago. Urine toxicology and alcohol level was negative. My independent interpretation of the chest x-ray is no acute process. EKG is normal sinus rhythm at a rate of 72. Patient had blood cultures and urine culture sent. I will add on a lactic acid. We are also going to administer ceftriaxone for the UTI. Plan of care will be admission to hospital for treatment of UTI as well as MRI of brain to evaluate for the possibility of subacute stroke. Hospitalist requested CTA to be performed. This is positive for acute stroke that was not seen on the head CT on Friday. History & Record Review Discussion w/independent historian: Patient and Family Additional record(s) reviewed:: Prior ED visit and Prior labs Lab Data Attestation: I reviewed the patient's lab results. Labs: Laboratory Results - last 24 hr 08/18/24 08/18/24 08/18/24 10:50 11:35 12:35 WBC 8.4 RBC 4.17 L Hgb 13.0 Hct 40.0 MCV 95.9 MCH 31.2 MCHC 32.5 RDW Std Deviation 45.8 H RDW Coeff of Dalton 13.0 Plt Count 254 MPV 9.1 Immature Gran % (Auto) 0.400 Neut % (Auto) 79.2 H Lymph % (Auto) 10.9 L Waller % (Auto) 7.5 Eos % (Auto) 0.7 Baso % (Auto) 1.3 H Absolute Neuts (auto) 6.6 Absolute Lymphs (auto) 0.91 Nucleated RBC % 0 PT 13.1 INR 1.0 APTT 24.6 Sodium 142 Potassium 4.3 Chloride 106 Carbon Dioxide 25.9 Anion Gap 11 BUN 27 H Creatinine 1.00 Estim Creat Clear Calc 31.63 L Est GFR (MDRD) Non-Af 55 L BUN/Creatinine Ratio 27.4 H Glucose 72 Lactic Acid < 1.0 Calcium 10.0 Total Bilirubin 0.34 Direct Bilirubin 0.13 AST 36 H ALT 24 Alkaline Phosphatase 82 Total Protein 7.6 Albumin 4.4 Globulin 3.2 Urine Color Yellow Urine Clarity Sl. Cloudy Urine pH 7.0 Ur Specific [place] 1.005 Urine Protein 30 H Urine Glucose (UA) Normal Urine Ketones Negative Urine Occult Blood 50 H Urine Nitrite Positive H Urine Bilirubin Negative Urine Urobilinogen Normal Ur Leukocyte Esterase 500 H Urine RBC 0 SEEN Urine WBC 10-25 SEEN Ur Squamous Epith Cells 0 SEEN Urine Bacteria 3+ Urine Mucus 0 SEEN Urine Opiates Screen NEGATIVE U Buprenorphine Qual NEGATIVE Ur Oxycodone Screen NEGATIVE Urine Methadone Screen NEGATIVE Urine Fentanyl Screen NEGATIVE Ur Barbiturates Screen NEGATIVE Ur Phencyclidine Scrn NEGATIVE Ur Amphetamines Screen NEGATIVE U Benzodiazepines Scrn NEGATIVE Urine Cocaine Screen NEGATIVE U Cannabinoids Screen NEGATIVE Ethyl Alcohol < 10.1 EKG Initial EKG: Attestation: I personally reviewed and interpreted this EKG as follows: Comments: Normal sinus rate of 72 bpm. Management Discussion w/another healthcare provider: Hospitalist (Dr Mar) and Radiologist Discharge Plan Dx/Rx/DC Orders Clinical Impression: Acute UTI, AMS (altered mental status), Stroke Disposition Disposition: Acute Care Hospital [facility] NIHSS NIHSS 1a. Level of Consciousness: 0 - Alert; keenly responsive 1b. LOC Questions: 0 - Answers BOTH questions correctly 1c. LOC Commands: 0 - Performs BOTH tasks correctly 2. Best Gaze: 0 - Normal 3. Visual: 0 - No visual loss 4. Facial Palsy: 0 - Normal symmetrical movements 5a. Left Arm: 0 - No drift; arm holds 90 (or 45) degrees for full 10 seconds 5b. Right Arm: 0 - No drift; arm holds 90 (or 45) degrees for full 10 seconds 6a. Left Le - No drift; leg holds 30-degree position for full 5 seconds 6b. Right Le - No drift; leg holds 30-degree position for full 5 seconds 7. Limb Ataxia: 2 - Present in 2 limbs 8. Sensory: 0 - Normal; no sensory loss 9. Best Language: 0 - No aphasia; normal 10. Dysarthria: 1 = Taip-sy-rcxluadv dysarthria; 11. Extinction and Inattention: 0 - No abnormality Total: 3 NIHSS NIHSS 1a. Level of Consciousness: 0 - Alert; keenly responsive 1b. LOC Questions: 0 - Answers BOTH questions correctly 1c. LOC Commands: 0 - Performs BOTH tasks correctly 2. Best Gaze: 0 - Normal 3. Visual: 0 - No visual loss 4. Facial Palsy: 0 - Normal symmetrical movements 5a. Left Arm: 0 - No drift; arm holds 90 (or 45) degrees for full 10 seconds 5b. Right Arm: 0 - No drift; arm holds 90 (or 45) degrees for full 10 seconds 6a. Left Le - No drift; leg holds 30-degree position for full 5 seconds 6b. Right Le - No drift; leg holds 30-degree position for full 5 seconds 7. Limb Ataxia: 2 - Present in 2 limbs 8. Sensory: 0 - Normal; no sensory loss 9. Best Language: 0 - No aphasia; normal 10. Dysarthria: 1 = [id number] dysarthria; 11. Extinction and Inattention: 0 - No abnormality Total: 3 What to do if you have Problems For any increased pain, shortness of breath, bleeding, nausea or vomiting, chestpain, or any unexpected problems, contact your Primary Care Provider. Call [facility] ([phone]) or report to the closest Emergency Room. Call 911 if necessary. 08/19/24 1457 <Electronically signed by Fawad Cordon DO> Cosigner Signature (if applicable): CC: OUTREACH COORDINATOR Tasha Deutsch ~ Signed [facility] Work Phone: 1(286) 545-727305-08-2025 Progress note [facility] Medical Records Department [address] [place] [address] Progress Note - Hospitalist 08/19/24 1627 MR#: [id number] Acct: [id number] Name: BEHZAD HAY Rep #:[id number] : 1940 84 From: Mara Mar DO PCP: Tasha Deutsch, OUTREACH COORDINATOR Status:ADM IN Location: [place] [address] Reason for Visit Reason for Visit: Confusion/dysarthria/dysmetria right-sided Objective Data Objective Data Vital Signs: Vital Signs Temp Pulse Resp BP Pulse Ox O2 Del Method 97.7 F L 88 16 136/99 H 96 Room Air 08/19/24 15:20 08/19/24 15:20 08/19/24 15:20 08/19/24 15:20 08/19/24 15:20 08/19/24 15:20 Oxygen Delivery Method Room Air Weight: 51.8 kg Body Mass Index (BMI) 20.9 Intake & Output: Intake and Output for Last 24 Hours 08/17/24 08/18/24 08/19/24 23:59 23:59 23:59 Intake Total 50 / 50 50 / 50 Balance 50 / 50 50 / 50 Lab / Micro Data 08/19/24 05:55 08/19/24 05:55 Labs: Laboratory Results - last 24 hr 08/19/24 05:55: WBC 5.9, RBC 3.81 L, Hgb 11.8 L, Hct 36.9 L, MCV 96.9, MCH 31.0,MCHC 32.0, RDW Std Deviation 46.8 H, RDW Coeff of Dalton 13.1, Plt Count 237, MPV 8.9, Immature Gran % (Auto) 0.300, Neut % (Auto) 67.8, Lymph % (Auto) 18.3 L, Waller % (Auto) 8.5, Eos % (Auto) 3.9, Baso % (Auto) 1.2 H, Absolute Neuts (auto) 4.0, Absolute Lymphs (auto) 1.07, Nucleated RBC % 0, Sodium 140, Potassium 4.3, Chloride 106, Carbon Dioxide 23.7, Anion Gap 10, BUN 17, Creatinine 0.84, Estim Creat Clear Calc 38.02L, Est GFR (MDRD) Non-Af 68, BUN/Creatinine Ratio 20.6 H,Glucose 102 H, Calcium 9.1, Phosphorus 3.2, Magnesium 2.3 H, Total Bilirubin 0.36, AST 33 H, ALT 18, Alkaline Phosphatase 70, Total Protein 6.3, Albumin 3.7,Globulin 2.6, Albumin/Globulin Ratio 1.4, Triglycerides 75, Cholesterol 189, LDLCholesterol, Calc 112, VLDL Cholesterol 15, HDL Cholesterol 62, Cholesterol/HDL Ratio 3.03, TSH 1.590 Micro: Microbiology 08/18/24 11:35 Urine, Clean Catch Urine Culture - Preliminary Gram negative oliva Radiography Diagnostic Testing: Radiology Impression Brain MRI 08/18/24 13:14 IMPRESSION: Acute infarct left frontoparietal lobe as described above, compatible with and MCA distribution infarct. Local mass effect without midline shift. Chronic microvascular ischemia and involutional changes. Red Alert: The critical information above was relayed directly by me by telephone to JESIKA Paulino on 08/18/2024 at 6:39 pm with readback verification. Reading Location: [facility] Echocardiogram 08/18/24 13:14 Interpretation Summary The LV systolic function is normal. EF is 65 %. Diastolic function is indeterminate. The left atrium is mildly enlarged. Mild focal mitral valve calcification of the posterior leaflet. Mildly calcified aortic valve. Aortic valve sclerosis without stenosis. Mildly calcified aortic root. Ordering Physician: Mara Mar Performed By: Abelardo Romero RCS Physical Exam Const alert, no apparent distress, average body habitus and well nourished Constitutional Narrative: Very pleasant elderly, mildly confused, white female, sitting up in bed, appearscomfortable, non-toxic General Appearance: cooperative HEENT normocephalic, head/scalp atraumatic and moist oral mucous membranes Eyes PERRL, EOMs intact bilaterally and conjunctivae normal Neck no lymphadenopathy, supple and no carotid bruits Neck Narrative: trachea midline, no thyroid enlargement Resp normal respiratory effort, no retractions, no use of accessory muscles and clearto auscultation bilaterally Auscultation: Negative for rales, rhonchi or wheezes Cardio regular rate, regular rhythm, S1 normal heart sound, S2 normal heart sound, no murmurs, no rub, no gallops and no clicks GI normal to inspection, nondistended, normoactive bowel sounds, soft to palpation and non-tender Extremity no clubbing, cyanosis or edema Extremity Narrative: 2+ pedal and radial pulses Skin skin turgor normal, no jaundice, no petechiae and no mottling Neuro CN's II-XII intact bilaterally Neuro Narrative: dysmetria, expressive aphasia, Sensorium / Orientation: awake, alert, oriented to person and oriented to place;Negative for oriented to time Speech: Negative for speech normal Psych affect normal Psych Narrative: very pleasant Assessment & Plan Assessment/Plan (1) Dysarthria: (2) Dysmetria: (3) Abnormal urinalysis: PLAN: Plan Acute L MCA stroke - Highly suspect patient has acute infarct - Cont aspirin 81 mg daily - Continue atorvastatin 40 mg daily - Plavix started 75 mg and will continue until until can start Eliquis in 3-5 day - CTA head and neck showed 40% distal basilar aa, with diffuse irregularities, 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 coli UTI - Culture result pending - continue ceftriaxone 1 g daily CKD Stage IIIb -creat at baseline -monitor Essential hypertension - Hold home lisinopril - Allow for permissive hypertension with symptoms on presentation - Blood pressure control per stroke protocol with as needed medications Osteoarthritis - As needed Tylenol available History of paroxysmal atrial fibrillation - Noted in documentation from 2021 in the emergency department at which time shespontaneously converted - It does not appear she is on any anticoagulation and was not discharged on anyat that time. History otherwise is unclear - TSH WNL - did flip into a-fib this am - started metoprolol 50 mg po BID - start eliquis 5 mg po BID in 3-5 days to avoid hemorrhagic transformation DVT prophylaxis - Continue enoxaparin 40 mg CODE STATUS - Full code Charges/Coding Visit Charges Inpatient E&M: 63054 Subs Hosp L2 NIHSS NIHSS Nursing Documentation NIHSS Nursing Documentation: NIHSS: Ischemic Stroke/TIA Start: 08/18/24 16:47 Text: For PCU Patients: NIH and Neuro Check every 4 Status: Active hours, PRN and with change in RN caregiver. Freq: [id number] Protocol: Activity Type Activity Date Activity User E-sign Co-sign Detail Recorded Client Recorded Date Recorded By Document 08/19/24 15:20 ELISE [id number] 08/19/24 15:32 ELISE 08/19/24 15:20 NIH Stroke Scale [NIHSS] A score of 0 is "normal" or asymptomatic . Total possible score is 42. Inpatient: RN or Physician to activate a stroke alert for onset of new stroke symptoms or with NIHSS increase >/= 3 points. Following change in neurological status, NIHSS will be performed per physician order or more frequently PRN. -1a. Level of Consciousness 0 - Alert; keenly responsive -1b. LOC Questions 1 - Answers ONE question correctly -1c. LOC Commands 0 - Performs BOTH tasks correctly -2. Best Gaze 0 - Normal -3. Visual 0 - No visual loss -4. Facial Palsy 0 - Normal symmetrical movements -5a. Left Arm 0 - No drift; arm holds 90 ( or 45) degrees for full 10 seconds -5b. Right Arm 0 - No drift; arm holds 90 ( or 45) degrees for full 10 seconds -6a. Left Leg 0 - No drift; leg holds 30- degree position for full 5 seconds -6b. Right Leg 0 - No drift; leg holds 30- degree position for full 5 seconds -7. Limb Ataxia 0 - Absent -8. Sensory 0 - Normal; no sensory loss -9. Best Language 1 - Mild-to- moderate aphasia; -10. Dysarthria 1 = Mild-to- moderate dysarthria; -11. Extinction and Inattention 0 - No abnormality -Total 3 Query Text:A score of 0 is "normal" or asymptomatic. Total possible score is 42 . ED: Notify Physician for NIHSS increase by > / = 3 points. Inpatient: RN or Physician to activate a stroke alert for NIHSS increase of > / = 3 points. Coma Scale [Assess] -Eye Opening Spontaneous -Motor Obeys Commands -Verbal Confused [Total] -Coma Scale Total 14 08/19/24 1641 Cosigner Signature (if applicable): CC: ~ Signed [facility]05-08-2025 Consult note Author Isa Cruz [facility] Note Date/Time August 19, 2024 2:17pm [facility] Medical Records Department [address] [place] [address] Consultation - Neurology 08/19/24 1355 MR#: [id number] Acct: [id number] Name: BEHZAD HAY Rep #:[id number] : 1940 84 From: Isa Cruz MD PCP: Tasha Deutsch, OUTREACH COORDINATOR Status:ADM IN Location: [place] [address] Assessment and Plan: Stroke Assessment/Plan BEHZAD HAY is a 84 F with a history of paroxysmal atrial fibrillation in 2021 and she who presents with confusion. Neurological examination shows mild aphasia and dysarthria. Neuroimaging shows CTA: Mild atherosclerosis bilateral ICA, carotid siphons, MCA and RACHEL, MRI: Leftfronto parietal stroke LDL 112. ECHO = Ef 65%, LA mildly enlarged. Left MCA stroke cryptogenic in etiology Plan Continue ASA, plavix for 3 weeks then ASA alone. If she has Afib will need anticoagulation instead of antiplatelet. Event monitor upon DC HLD: Statin to keep LDL <70. Permissive hypertension acutely and jail will need it under control PT OT, speech, swallow evaluation Stroke education Thanks for the consultation. Spent 70 min in evaluation and management of the patient. HPI Consult Data Date of Consult: 08/19/24 HPI Narrative HPI Narrative: BEHZAD HAY, is a 84 F with a history of atrial fibrillation who presents tothe emergency department at [facility] on 08/18/2024 due to patient's family being concerned she needed. She was seen in emergency department 2 days ago at which time she had an episode of confusion where she could not figure out how to get her garage open by pushing the button. Workup was negative and emergency department NIH was 0 at that time. She was discharged home after discussion with family. Another family member brought herin as she continued to have episodes of confusion and was having difficulty withcontrolling the right side of her arm and leg and some speech changes. They indicated that early on the day of presentation she was unable to use a spoon tofeed herself. She had some difficulty walking with her right leg and was havingword finding difficulty. [facility] Medical History (Updated 08/18/24 @ 21:[address] Mara Mar DO) Osteoarthritis CKD (chronic kidney disease) stage 4, GFR 15-29 ml/min History of atrial fibrillation Osteoarthritis Fe deficiency anemia Home Medications ?Medication ?Instructions ?Recorded ?Last Taken ?Type lisinopril 30 mg tablet 30 mg PO DAILY 08/16/2411/05 History multivitamin (Daily Multi-Vitamin 1 tab PO DAILY 08/1608/18/24 History tablet) Allergy/AdvReac Type Severity Reaction Status Date / Time nitrofurantoin (From Allergy Rash Verified 08/18/24 09:54 Macrobid) Family History unable to obtain Surgical History Hx of tonsillectomy Social History household members: none Smoking Status: Never smoker alcohol intake: never substance use type: does not use Vital Signs Vital Signs Vital Signs: 08/18/24 14:00 08/18/24 15:45 08/18/24 16:11 Temperature 97.4 F L 97.6 F L Temperature Source Temporal Temporal Pulse Rate 79 76 76 Pulse Strength Respiratory Rate 21 H 16 17 Respiratory Effort Respiratory Depth Respiratory Pattern Blood Pressure 181/101 H 164/72 H 164/72 H Blood Pressure Mean 127 102 102 Blood Pressure Source Monitor Monitor Blood Pressure Position Semi-Fowlers Semi-Fowlers Blood Pressure Location Right Arm Right Arm Pulse Ox 99 99 Oxygen Delivery Method Room Air Room Air 08/18/24 16:14 08/18/24 19:00 08/18/24 19:34 Temperature 97.2 F L Temperature Source Temporal Pulse Rate 75 77 Pulse Strength Respiratory Rate 15 Respiratory Effort Normal Respiratory Depth Normal Respiratory Pattern Normal Blood Pressure 145/74 H Blood Pressure Mean 97 Blood Pressure Source Monitor Blood Pressure Position Semi-Fowlers Blood Pressure Location Right Arm Pulse Ox 100 Oxygen Delivery Method Room Air Room Air 08/19/24 00:22 08/19/24 00:22 08/19/24 03:00 Temperature 98.6 F 98.6 F Temperature Source Oral Oral Pulse Rate 78 76 66 Pulse Strength Respiratory Rate 15 15 Respiratory Effort Respiratory Depth Respiratory Pattern Blood Pressure 156/69 H 156/69 H Blood Pressure Mean 98 98 Blood Pressure Source Monitor Blood Pressure Position Semi-Fowlers Blood Pressure Location Left Arm Pulse Ox 98 98 Oxygen Delivery Method Room Air Room Air 08/19/24 04:23 08/19/24 07:23 08/19/24 08:39 Temperature 98.5 F 98.3 F Temperature Source Oral Oral Pulse Rate 67 67 Pulse Strength Respiratory Rate 17 14 Respiratory Effort Normal Non-Labored Respiratory Depth Normal Respiratory Pattern Normal Blood Pressure 147/77 H 145/76 H Blood Pressure Mean 100 99 Blood Pressure Source Monitor Monitor Blood Pressure Position Semi-Fowlers Semi-Fowlers Blood Pressure Location Left Arm Left Arm Pulse Ox 98 99 Oxygen Delivery Method Room Air Room Air Room Air 08/19/24 08:45 08/19/24 09:26 08/19/24 10:44 Temperature 97.7 F L Temperature Source Oral Pulse Rate 72 72 Pulse Strength Normal (2+) Respiratory Rate 14 Respiratory Effort Respiratory Depth Respiratory Pattern Blood Pressure 162/84 H 162/84 H Blood Pressure Mean 110 Blood Pressure Source Monitor Blood Pressure Position Semi-Fowlers Blood Pressure Location Left Arm Pulse Ox 98 Oxygen Delivery Method Room Air 08/19/24 11:20 Temperature 97.8 F Temperature Source Oral Pulse Rate 104 H Pulse Strength Respiratory Rate 16 Respiratory Effort Respiratory Depth Respiratory Pattern Blood Pressure 136/76 H Blood Pressure Mean 96 Blood Pressure Source Monitor Blood Pressure Position Sitting Blood Pressure Location Left Arm Pulse Ox 98 Oxygen Delivery Method Room Air Weight Weight: 51.8 kg Body Mass Index (BMI) 20.9 Physical Exam Const alert and oriented x3 General Appearance: cooperative and comfortable Neuro Neuro Narrative: Awake, alert, difficulty telling month Mild aphasia and dysarthria CN 2-12 intact Power 5/5 Sensation: Intact Lab / Micro Data 08/19/24 05:55 08/19/24 05:55 Labs: Laboratory Results - last 24 hr 08/18/24 10:50: Hemoglobin A1c 5.7 08/19/24 05:55: WBC 5.9, RBC 3.81 L, Hgb 11.8 L, Hct 36.9 L, MCV 96.9, MCH 31.0,MCHC 32.0, RDW Std Deviation 46.8 H, RDW Coeff of Dalton 13.1, Plt Count 237, MPV 8.9, Immature Gran % (Auto) 0.300, Neut % (Auto) 67.8, Lymph % (Auto) 18.3 L, Waller % (Auto) 8.5, Eos % (Auto) 3.9, Baso % (Auto) 1.2 H, Absolute Neuts (auto) 4.0, Absolute Lymphs (auto) 1.07, Nucleated RBC % 0, Sodium 140, Potassium 4.3, Chloride 106, Carbon Dioxide 23.7, Anion Gap 10, BUN 17, Creatinine 0.84, Estim Creat Clear Calc 38.02 L, Est GFR (MDRD) Non-Af 68, BUN/Creatinine Ratio 20.6 H,Glucose 102 H, Calcium 9.1, Phosphorus 3.2, Magnesium 2.3 H, Total Bilirubin 0.36, AST 33 H, ALT 18, Alkaline Phosphatase 70, Total Protein 6.3, Albumin 3.7,Globulin 2.6, Albumin/Globulin Ratio 1.4, Triglycerides 75, Cholesterol 189, LDLCholesterol, Calc 112, VLDL Cholesterol 15, HDL Cholesterol 62, Cholesterol/HDL Ratio 3.03, TSH 1.590 Micro: Microbiology 08/18/24 11:35 Urine, Clean Catch Urine Culture - Preliminary Gram negative oliva Imaging Radiology Impression Brain MRI 08/18/24 13:14 IMPRESSION: Acute infarct left frontoparietal lobe as described above, compatible with and MCA distribution infarct. Local mass effect without midline shift. Chronic microvascular ischemia and involutional changes. Red Alert: The critical information above was relayed directly by me by telephone to JESIKA Paulino on 08/18/2024 at 6:39 pm with readback verification. Reading Location: [facility] Echocardiogram 08/18/24 13:14 Interpretation Summary The LV systolic function is normal. EF is 65 %. Diastolic function is indeterminate. The left atrium is mildly enlarged. Mild focal mitral valve calcification of the posterior leaflet. Mildly calcified aortic valve. Aortic valve sclerosis without stenosis. Mildly calcified aortic root. Ordering Physician: Mara Mar Performed By: Abelardo Romero RCS Head/Neck CTA 08/18/24 13:14 IMPRESSION: 1. Findings suspicious for acute infarct along the high LEFT parietal lobe. Additional age-indeterminate hypodensity in the LEFT caudate indeterminate for remote lacunar infarct versus acute ischemia. No hemorrhagic conversion or mass-effect. Consider MRI as indicated. 2. No large vessel occlusion identified. 3. 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 Fairly prominent intracranial atherosclerosis with diffuse irregularity and mild through moderate/severe stenoses throughout the small intracranial vasculature. 4. Findings along the distal [id number] ICAs suspicious for vasculopathy such as fibromuscular dysplasia, although notably fibromuscular dysplasia would be somewhat unusual in this demographic. 5. 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 Recommend clinical follow-up. 6. Additional description as above. Red Alert: #1-2 above The critical information above was relayed directly by me by telephone to Tito 08/18/2024 at 12:17 pm [facility]. Reading Location: [id number] Active Medications Active Medications Active Medications: Current Medications Generic Name Dose Route Start Last Admin Trade Name Freq PRN Reason Stop Dose Admin Acetaminophen 650 mg 08/18/24 16:47 Acetaminophen 325 Mg Tablet PO Q4H PRN PRN Pain 1-10 Or Fever>99.6 Albuterol Sulfate 2.5 mg 08/18/24 16:47 Albuterol 2.5 Mg/3 Ml Vial.Neb. INHALATION Q2H PRN PRN SOB &/OR WHEEZING Aspirin 81 mg 08/19/24 08:00 08/19/24 09:29 Aspirin 81 Mg Tab.Chew PO 81 mg BREAKFAST SANJUANA Administration Atorvastatin Calcium 40 mg 08/18/24 22:00 08/18/24 21:17 Atorvastatin Calcium 40 Mg Tablet PO 40 mg QHS SANJUANA Administration Clopidogrel Bisulfate 75 mg 08/19/24 10:00 08/19/24 09:31 Clopidogrel Bisulfate 75 Mg Tablet PO 75 mg DAILY SANJUANA Administration Enoxaparin Sodium 40 mg 08/19/24 10:00 08/19/24 09:29 Enoxaparin 40 Mg/0.4 Ml Syringe SC 40 mg DAILY SANJUANA Administration Hydralazine HCl 5 mg 08/18/24 16:47 Hydralazine 20 Mg/Ml Vial IV 08/19/24 16:47 Q30M PRN maintain BP parameters with HR <60 Sodium Chloride 250 mls @ 15 mls/hr 08/18/24 16:00 IV .[id number] PRN Saline Flush Sodium Chloride 250 mls @ 15 mls/hr 08/18/24 16:00 IV .[id number] PRN Additional IVPB Infusion Ceftriaxone Sodium 1 gm in 50 mls @ 100 mls/hr 08/19/24 10:00 08/19/24 10:08 Rocephin IV 08/26/24 10:01 Infused Q24 SANJUANA Infusion Labetalol HCl 10 - 20 mg 08/18/24 16:47 Labetalol 20mg/4ml Syringe IV 08/19/24 16:47 Q10M PRN PRN maintain BP parameters with HR >/=60 Lisinopril 30 mg 08/19/24 10:00 Lisinopril 10 Mg Tablet PO DAILY SANJUANA Melatonin 3 mg 08/18/24 16:47 Melatonin 3 Mg Tablet PO QHS PRN PRN INSOMNIA Metoprolol Tartrate 50 mg 08/19/24 10:38 08/19/24 10:44 Metoprolol Tartrate 50 Mg Tablet PO 50 mg BID SANJUANA Administration Protocol Multivitamins 1 tablet 08/19/24 08:00 08/19/24 09:29 Multivitamins,Therapeutic Tablet PO 1 tablet DAILYCM SANJUANA Administration Ondansetron HCl 4 mg 08/18/24 16:47 Ondansetron 4 Mg/2 Ml Vial IV Q8H PRN PRN NAUSEA/VOMITING Senna/Docusate Sodium 2 tablet 08/18/24 16:47 Senna/Docusate Sodium 1 Tablet PO BID PRN PRN Constipation Sodium Chloride 10 - 40 ml 08/18/24 16:00 08/19/24 09:31 0.9% Saline Lock 10 Ml Syringe IV 10 ml UD PRN Administration SALINE FLUSH NIHSS NIHSS Nursing Documentation NIHSS Nursing Documentation: NIHSS: Ischemic Stroke/TIA Start: 08/18/24 16:47 Text: For PCU Patients: NIH and Neuro Check every 4 Status: Active hours, PRN and with change in RN caregiver. Freq: [id number] Protocol: Activity Type Activity Date Activity User E-sign Co-sign Detail Recorded Client Recorded Date Recorded By Document 08/19/24 11:21 ELISE [id number] 08/19/24 11:53 ELISE 08/19/24 11:21 NIH Stroke Scale [NIHSS] A score of 0 is "normal" or asymptomatic . Total possible score is 42. Inpatient: RN or Physician to activate a stroke alert for onset of new stroke symptoms or with NIHSS increase >/= 3 points. Following change in neurological status, NIHSS will be performed per physician order or more frequently PRN. -1a. Level of Consciousness 0 - Alert; keenly responsive -1b. LOC Questions 1 - Answers ONE question correctly -1c. LOC Commands 0 - Performs BOTH tasks correctly -2. Best Gaze 0 - Normal -3. Visual 0 - No visual loss -4. Facial Palsy 0 - Normal symmetrical movements -5a. Left Arm 0 - No drift; arm holds 90 ( or 45) degrees for full 10 seconds -5b. Right Arm 0 - No drift; arm holds 90 ( or 45) degrees for full 10 seconds -6a. Left Leg 0 - No drift; leg holds 30- degree position for full 5 seconds -6b. Right Leg 0 - No drift; leg holds 30- degree position for full 5 seconds -7. Limb Ataxia 0 - Absent -8. Sensory 0 - Normal; no sensory loss -9. Best Language 0 - No aphasia; normal -10. Dysarthria 1 = Mild-to- moderate dysarthria; -11. Extinction and Inattention 0 - No abnormality -Total 2 Query Text:A score of 0 is "normal" or asymptomatic. Total possible score is 42 . ED: Notify Physician for NIHSS increase by > / = 3 points. Inpatient: RN or Physician to activate a stroke alert for NIHSS increase of > / = 3 points. Coma Scale [Assess] -Eye Opening Spontaneous -Motor Obeys Commands -Verbal Confused [Total] -Coma Scale Total 14 NIHSS 1a. Level of Consciousness: 0 - Alert; keenly responsive 1b. LOC Questions: 1 - Answers ONE question correctly 1c. LOC Commands: 0 - Performs BOTH tasks correctly 2. Best Gaze: 0 - Normal 3. Visual: 0 - No visual loss 4. Facial Palsy: 0 - Normal symmetrical movements 5a. Left Arm: 0 - No drift; arm holds 90 (or 45) degrees for full 10 seconds 5b. Right Arm: 0 - No drift; arm holds 90 (or 45) degrees for full 10 seconds 6a. Left Le - No drift; leg holds 30-degree position for full 5 seconds 6b. Right Le - No drift; leg holds 30-degree position for full 5 seconds 7. Limb Ataxia: 0 - Absent 8. Sensory: 0 - Normal; no sensory loss 9. Best Language: 1 - [id number] aphasia; 10. Dysarthria: 1 = [id number] dysarthria; 11. Extinction and Inattention: 0 - No abnormality Total: 3 08/19/24 1417 <Electronically signed by Isa Cruz MD> Cosigner Signature (if applicable): CC: OUTREACH COORDINATOR Tasha Deutsch~ Signed [facility] Work Phone: [phone]) 754-184205-08-2025 Discharge summary [facility] Medical Records Department [address] [place] [address] Emergency Department Summary 08/18/24 MR#: [id number] Acct: [id number] Name: BEHZAD HAY Rep #:[id number] : 1940 84 From: Fawad Last PCP: Tasha Deutsch, OUTREACH COORDINATOR Status:ADM IN Location: [place] [address] HPI History of Present Illness Chief Complaint: Neuro S/Sx Informant: patient and family Narrative Narrative: 84-year-old female presenting to the emergency room out of concern for needing MRI. Patient was seen in the emergency room about 2 days ago with an episode ofconfusion where she could not figure out how to get her garage door open by pushing the button. Her workup was negative and is reported that she had an NIHof 0. There was discussion about admitting for a MRI but patient was dischargedhome after discussion with family. Another family member brings her in today stating that the patient continues to have episodes of confusion and now having difficulty with control on the right side of her arm and leg. They note some speech change. They note that today she was unable to relieve use the spoon to feed herself. They state instead of taking her pills with her right hand she isusing her left hand. They note that she does not seem to walk as well with the right leg. Patient denies any visionchange. She states she has a hard time finding certain words. Family notes that yesterday she went to converse with the neighbors and was very confused. Patient denies any cough or difficulty swallowing. Patient states that she fell using the bathroom last night but did not injure herself. [facility] Medical History Osteoarthritis CKD (chronic kidney disease), stage III Fe deficiency anemia Home Medications ?Medication ?Instructions ?Recorded ?Last Taken ?Type lisinopril 30 mg tablet 30 mg PO DAILY 08/16/2411/05 History multivitamin (Daily Multi-Vitamin 1 tab PO DAILY 08/1608/18/24 History tablet) Allergy/AdvReac Type Severity Reaction Status Date / Time nitrofurantoin (From Allergy Rash Verified 08/18/24 09:54 Macrobid) Surgical History Hx of tonsillectomy Social History household members: none Smoking Status: Never smoker alcohol intake: never substance use type: does not use ROS ROS ED Constitutional Constitutional ED: Denies chills, fever(s) or weight loss Eyes Eyes: Denies change in vision or diplopia ENT ENT ED: Denies ear pain, rhinorrhea or sore throat Cardiovascular Cardiovascular: Denies chest pain, orthopnea, palpitations or racing heartbeat Respiratory/Chest Respiratory/Chest: Denies cough, dyspnea or orthopnea Gastrointestinal Gastrointestinal: Denies abdominal pain, diarrhea, nausea or vomiting Genitourinary Genitourinary ED: Denies dysuria, hematuria or urinary frequency Musculoskeletal Musculoskeletal: Denies arthralgias or myalgias Integumentary Denies abscess or rash Neurologic Neurologic: Reports weakness and other Details: Confusion speech difficulty ; Denies headache(s) Psychiatric Psychiatric: Denies anxiety, depression, suicidal ideation or suicidal thoughts Endocrine Endocrinology: Denies polydipsia, polyphagia or polyuria Allergic/Immunologic Allergic/Immunologic ED: Denies mouth swelling, tongue swelling or urticaria EXAM Physical Exam Const Vital Signs: 08/18/24 09:54 08/18/24 10:52 08/18/24 11:00 Temperature 98 F Temperature Source Oral Pulse Rate 81 69 71 Respiratory Rate 15 14 14 Blood Pressure 187/89 H 165/72 H 152/87 H Blood Pressure Mean 121 103 108 Pulse Ox 100 99 Oxygen Delivery Method Room Air Room Air Room Air 08/18/24 12:36 08/18/24 13:00 08/18/24 14:00 Temperature Temperature Source Pulse Rate 78 83 79 Respiratory Rate 16 13 21 H Blood Pressure 179/85 H 189/79 H 181/101 H Blood Pressure Mean 116 115 127 Pulse Ox 96 Oxygen Delivery Method Room Air Room Air Positive well nourished and well developed General Appearance ED: well developed and NAD HEENT Reports normocephalic, head/scalp atraumatic and moist mucous membranes Eyes PERRL and EOMs intact bilaterally Neck no lymphadenopathy, supple and no JVD General: Negative for tenderness Resp normal respiratory effort and clear to auscultation bilaterally Cardio regular rate, regular rhythm and no murmurs GI normal to inspection, nondistended, normoactive bowel sounds and non-tender Palpation: soft Back/Spine no CVA tenderness and normal ROM Extremity normal to inspection General Extremety ED: Negative for edema General Extremity: Negative for edema Neuro oriented x3 and no sensory deficits noted [place] Coma Scale: document GCS findings Spontaneous Obeys Commands Oriented 15 Sensorium / Orientation: alert Motor Exam: strength 5/5 throughout Psych mental status grossly normal Mood & Affect: Negative for depressed or tearful Skin no rashes or lesions noted Skin Narrative: Small abrasion (less than half centimeter) to the dorsum of the right hand MDM MDM MDM Narrative Medical decision making narrative: Differential diagnosis includes stroke UTI sepsis dehydration electrolyte abnormalities acute kidney injury liver dysfunction pneumonia Patient's white count was 8.4 hemoglobin 13 platelet count of 254. Creatinine is 1 BUN of 27 urinalysis with 10-25 white cells 3+ bacteria positive nitrates positive leukocyte Estrace. This is a change from her urine specimen just 2 days ago. Urine toxicology and alcohol level was negative. My independent interpretation of the chest x-ray is no acute process. EKG is normal sinus rhythm at a rate of 72. Patient had blood cultures and urine culture sent. I will add on a lactic acid. We are also going to administer ceftriaxone for the UTI. Plan of care will be admission to hospital for treatment of UTI as well as MRI of brain to evaluate for the possibility of subacute stroke. Hospitalist requested CTA to be performed. This is positive for acute stroke that was not seen on the head CT on Friday. History & Record Review Discussion w/independent historian: Patient and Family Additional record(s) reviewed:: Prior ED visit and Prior labs Lab Data Attestation: I reviewed the patient's lab results. Labs: Laboratory Results - last 24 hr 08/18/24 08/18/24 08/18/24 10:50 11:35 12:35 WBC 8.4 RBC 4.17 L Hgb 13.0 Hct 40.0 MCV 95.9 MCH 31.2 MCHC 32.5 RDW Std Deviation 45.8 H RDW Coeff of Dalton 13.0 Plt Count 254 MPV 9.1 Immature Gran % (Auto) 0.400 Neut % (Auto) 79.2 H Lymph % (Auto) 10.9 L Waller % (Auto) 7.5 Eos % (Auto) 0.7 Baso % (Auto) 1.3 H Absolute Neuts (auto) 6.6 Absolute Lymphs (auto) 0.91 Nucleated RBC % 0 PT 13.1 INR 1.0 APTT 24.6 Sodium 142 Potassium 4.3 Chloride 106 Carbon Dioxide 25.9 Anion Gap 11 BUN 27 H Creatinine 1.00 Estim Creat Clear Calc 31.63 L Est GFR (MDRD) Non-Af 55 L BUN/Creatinine Ratio 27.4 H Glucose 72 Lactic Acid < 1.0 Calcium 10.0 Total Bilirubin 0.34 Direct Bilirubin 0.13 AST 36 H ALT 24 Alkaline Phosphatase 82 Total Protein 7.6 Albumin 4.4 Globulin 3.2 Urine Color Yellow Urine Clarity Sl. Cloudy Urine pH 7.0 Ur Specific [place] 1.005 Urine Protein 30 H Urine Glucose (UA) Normal Urine Ketones Negative Urine Occult Blood 50 H Urine Nitrite Positive H Urine Bilirubin Negative Urine Urobilinogen Normal Ur Leukocyte Esterase 500 H Urine RBC 0 SEEN Urine WBC 10-25 SEEN Ur Squamous Epith Cells 0 SEEN Urine Bacteria 3+ Urine Mucus 0 SEEN Urine Opiates Screen NEGATIVE U Buprenorphine Qual NEGATIVE Ur Oxycodone Screen NEGATIVE Urine Methadone Screen NEGATIVE Urine Fentanyl Screen NEGATIVE Ur Barbiturates Screen NEGATIVE Ur Phencyclidine Scrn NEGATIVE Ur Amphetamines Screen NEGATIVE U Benzodiazepines Scrn NEGATIVE Urine Cocaine Screen NEGATIVE U Cannabinoids Screen NEGATIVE Ethyl Alcohol < 10.1 EKG Initial EKG: Attestation: I personally reviewed and interpreted this EKG as follows: Comments: Normal sinus rate of 72 bpm. Management Discussion w/another healthcare provider: Hospitalist (Dr Mar) and Radiologist Discharge Plan Dx/Rx/DC Orders Clinical Impression: Acute UTI, AMS (altered mental status), Stroke Disposition Disposition: Acute Care Hospital [facility] NIHSS NIHSS 1a. Level of Consciousness: 0 - Alert; keenly responsive 1b. LOC Questions: 0 - Answers BOTH questions correctly 1c. LOC Commands: 0 - Performs BOTH tasks correctly 2. Best Gaze: 0 - Normal 3. Visual: 0 - No visual loss 4. Facial Palsy: 0 - Normal symmetrical movements 5a. Left Arm: 0 - No drift; arm holds 90 (or 45) degrees for full 10 seconds 5b. Right Arm: 0 - No drift; arm holds 90 (or 45) degrees for full 10 seconds 6a. Left Le - No drift; leg holds 30-degree position for full 5 seconds 6b. Right Le - No drift; leg holds 30-degree position for full 5 seconds 7. Limb Ataxia: 2 - Present in 2 limbs 8. Sensory: 0 - Normal; no sensory loss 9. Best Language: 0 - No aphasia; normal 10. Dysarthria: 1 = Rxfl-bb-mfvqvytq dysarthria; 11. Extinction and Inattention: 0 - No abnormality Total: 3 NIHSS NIHSS 1a. Level of Consciousness: 0 - Alert; keenly responsive 1b. LOC Questions: 0 - Answers BOTH questions correctly 1c. LOC Commands: 0 - Performs BOTH tasks correctly 2. Best Gaze: 0 - Normal 3. Visual: 0 - No visual loss 4. Facial Palsy: 0 - Normal symmetrical movements 5a. Left Arm: 0 - No drift; arm holds 90 (or 45) degrees for full 10 seconds 5b. Right Arm: 0 - No drift; arm holds 90 (or 45) degrees for full 10 seconds 6a. Left Le - No drift; leg holds 30-degree position for full 5 seconds 6b. Right Le - No drift; leg holds 30-degree position for full 5 seconds 7. Limb Ataxia: 2 - Present in 2 limbs 8. Sensory: 0 - Normal; no sensory loss 9. Best Language: 0 - No aphasia; normal 10. Dysarthria: 1 = Qxdn-al-tnxwyste dysarthria; 11. Extinction and Inattention: 0 - No abnormality Total: 3 What to do if you have Problems For any increased pain, shortness of breath, bleeding, nausea or vomiting, chestpain, or any unexpected problems, contact your Primary Care Provider. Call [facility] ([phone]) or report tothe closest Emergency Room. Call 911 if necessary. 08/19/24 1457 Cosigner Signature (if applicable): CC: OUTREACH COORDINATOR Tasha Deutsch ~ Signed [facility]05-08-2025 Consult note [facility] Medical Records Department [address] [place] [address] Consultation - Neurology 08/19/24 1355 MR#: [id number] Acct: [id number] Name: BEHZAD HAY Rep #:[id number] : 1940 84 From: Isa Cruz MD PCP: Tasha Deutsch, OUTREACH COORDINATOR Status:ADM IN Location: [place] [address] Assessment and Plan: Stroke Assessment/Plan BEHZAD HAY is a 84 F with a history of paroxysmal atrial fibrillation in 2021 and she whopresents with confusion. Neurological examination shows mild aphasia and dysarthria. Neuroimaging shows CTA: Mild atherosclerosis bilateral ICA, carotid siphons, MCA and RACHEL, MRI: Leftfronto parietal stroke LDL 112. ECHO = Ef 65%, LA mildly enlarged. Left MCA stroke cryptogenic in etiology Plan Continue ASA, plavix for 3 weeks then ASA alone. If she has Afib will need anticoagulation instead of antiplatelet. Event monitor upon DC HLD: Statin to keep LDL <70. Permissive hypertension acutely and jail will need it under control PT OT, speech, swallow evaluation Stroke education Thanks for the consultation. Spent 70 min in evaluation and management of the patient. HPI Consult Data Date of Consult: 08/19/24 HPI Narrative HPI Narrative: BEHZAD HAY, is a 84 F with a history of atrial fibrillation who presents tot emergency department at [facility] on 08/18/2024 due to patient's family being concerned she needed. She was seen in emergency department 2 days ago at which time she had an episode of confusion where she could not figure out how to get her garage open by pushing the button. Workup was negative and emergency department NIH was 0 at that time. She was discharged home after discussion with family. Another family member brought herin as she continued to have episodes of confusion and was having difficulty withcontrolling the right side of her arm and leg and some speech changes. They indicated that early on the day of presentation she was unable to use a spoon tofeed herself. She had some difficulty walking with her right leg and was havingword finding difficulty. [facility] Medical History (Updated 08/18/24 @ 21:[address] Mara Mar DO) Osteoarthritis CKD (chronic kidney disease) stage 4, GFR 15-29 ml/min History of atrial fibrillation Osteoarthritis Fe deficiency anemia Home Medications ?Medication ?Instructions ?Recorded ?Last Taken ?Type lisinopril 30 mg tablet 30 mg PO DAILY 08/16/2411/05 History multivitamin (Daily Multi-Vitamin 1 tab PO DAILY 08/1608/18/24 History tablet) Allergy/AdvReac Type Severity Reaction Status Date / Time nitrofurantoin (From Allergy Rash Verified 08/18/24 09:54 Macrobid) Family History unable to obtain Surgical History Hx of tonsillectomy Social History household members: none Smoking Status: Never smoker alcohol intake: never substance use type: does not use Vital Signs Vital Signs Vital Signs: 08/18/24 14:00 08/18/24 15:45 08/18/24 16:11 Temperature 97.4 F L 97.6 F L Temperature Source Temporal Temporal Pulse Rate 79 76 76 Pulse Strength Respiratory Rate 21 H 16 17 Respiratory Effort Respiratory Depth Respiratory Pattern Blood Pressure 181/101 H 164/72 H 164/72 H Blood Pressure Mean 127 102 102 Blood Pressure Source Monitor Monitor Blood Pressure Position Semi-Fowlers Semi-Fowlers Blood Pressure Location Right Arm Right Arm Pulse Ox 99 99 Oxygen Delivery Method Room Air Room Air 08/18/24 16:14 08/18/24 19:00 08/18/24 19:34 Temperature 97.2 F L Temperature Source Temporal Pulse Rate 75 77 Pulse Strength Respiratory Rate 15 Respiratory Effort Normal Respiratory Depth Normal Respiratory Pattern Normal Blood Pressure 145/74 H Blood Pressure Mean 97 Blood Pressure Source Monitor Blood Pressure Position Semi-Fowlers Blood Pressure Location Right Arm Pulse Ox 100 Oxygen Delivery Method Room Air Room Air 08/19/24 00:22 08/19/24 00:22 08/19/24 03:00 Temperature 98.6 F 98.6 F Temperature Source Oral Oral Pulse Rate 78 76 66 Pulse Strength Respiratory Rate 15 15 Respiratory Effort Respiratory Depth Respiratory Pattern Blood Pressure 156/69 H 156/69 H Blood Pressure Mean 98 98 Blood Pressure Source Monitor Blood Pressure Position Semi-Fowlers Blood Pressure Location Left Arm Pulse Ox 98 98 Oxygen Delivery Method Room Air Room Air 08/19/24 04:23 08/19/24 07:23 08/19/24 08:39 Temperature 98.5 F 98.3 F Temperature Source Oral Oral Pulse Rate 67 67 Pulse Strength Respiratory Rate 17 14 Respiratory Effort Normal Non-Labored Respiratory Depth Normal Respiratory Pattern Normal Blood Pressure 147/77 H 145/76 H Blood Pressure Mean 100 99 Blood Pressure Source Monitor Monitor Blood Pressure Position Semi-Fowlers Semi-Fowlers Blood Pressure Location Left Arm Left Arm Pulse Ox 98 99 Oxygen Delivery Method Room Air Room Air Room Air 08/19/24 08:45 08/19/24 09:26 08/19/24 10:44 Temperature 97.7 F L Temperature Source Oral Pulse Rate 72 72 Pulse Strength Normal (2+) Respiratory Rate 14 Respiratory Effort Respiratory Depth Respiratory Pattern Blood Pressure 162/84 H 162/84 H Blood Pressure Mean 110 Blood Pressure Source Monitor Blood Pressure Position Semi-Fowlers Blood Pressure Location Left Arm Pulse Ox 98 Oxygen Delivery Method Room Air 08/19/24 11:20 Temperature 97.8 F Temperature Source Oral Pulse Rate 104 H Pulse Strength Respiratory Rate 16 Respiratory Effort Respiratory Depth Respiratory Pattern Blood Pressure 136/76 H Blood Pressure Mean 96 Blood Pressure Source Monitor Blood Pressure Position Sitting Blood Pressure Location Left Arm Pulse Ox 98 Oxygen Delivery Method Room Air Weight Weight: 51.8 kg Body Mass Index (BMI) 20.9 Physical Exam Const alert and oriented x3 General Appearance: cooperative and comfortable Neuro Neuro Narrative: Awake, alert, difficulty telling month Mild aphasia and dysarthria CN 2-12 intact Power 5/5 Sensation: Intact Lab / Micro Data 08/19/24 05:55 08/19/24 05:55 Labs: Laboratory Results - last 24 hr 08/18/24 10:50: Hemoglobin A1c 5.7 08/19/24 05:55: WBC 5.9, RBC 3.81 L, Hgb 11.8 L, Hct 36.9 L, MCV 96.9, MCH 31.0,MCHC 32.0, RDW Std Deviation 46.8 H, RDW Coeff of Dalton 13.1, Plt Count 237, MPV 8.9, Immature Gran % (Auto) 0.300, Neut % (Auto) 67.8, Lymph % (Auto) 18.3 L, Waller % (Auto) 8.5, Eos % (Auto) 3.9, Baso % (Auto) 1.2 H, Absolute Neuts (auto) 4.0, Absolute Lymphs (auto) 1.07, Nucleated RBC % 0, Sodium 140, Potassium 4.3, Chloride 106, Carbon Dioxide 23.7, Anion Gap 10, BUN 17, Creatinine 0.84, Estim Creat Clear Calc 38.02L, Est GFR (MDRD) Non-Af 68, BUN/Creatinine Ratio 20.6 H,Glucose 102 H, Calcium 9.1, Phosphorus 3.2, Magnesium 2.3 H, Total Bilirubin 0.36, AST 33 H, ALT 18, Alkaline Phosphatase 70, Total Protein 6.3, Albumin 3.7,Globulin 2.6, Albumin/Globulin Ratio 1.4, Triglycerides 75, Cholesterol 189, LDLCholesterol, Calc 112, VLDL Cholesterol 15, HDL Cholesterol 62, Cholesterol/HDL Ratio 3.03, TSH 1.590 Micro: Microbiology 08/18/24 11:35 Urine, Clean Catch Urine Culture - Preliminary Gram negative oliva Imaging Radiology Impression Brain MRI 08/18/24 13:14 IMPRESSION: Acute infarct left frontoparietal lobe as described above, compatible with and MCA distribution infarct. Local mass effect without midline shift. Chronic microvascular ischemia and involutional changes. Red Alert: The critical information above was relayed directly by me by telephone to JESIKA Paulino on 08/18/2024 at 6:39 pm with readback verification. [facility] Echocardiogram 08/18/24 13:14 Interpretation Summary The LV systolic function is normal. EF is 65 %. Diastolic function is indeterminate. The left atrium is mildly enlarged. Mild focal mitral valve calcification of the posterior leaflet. Mildly calcified aortic valve. Aortic valve sclerosis without stenosis. Mildly calcified aortic root. Ordering Physician: Mara Mar Performed By: Abelardo Romero RCS Head/Neck CTA 08/18/24 13:14 IMPRESSION: 1. Findings suspicious for acute infarct along the high LEFT parietal lobe. Additional age-indeterminate hypodensity in the LEFT caudate indeterminate for remote lacunar infarct versus acute ischemia. No hemorrhagic conversion or mass-effect. Consider MRI as indicated. 2. No large vessel occlusion identified. 3. 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 Fairly prominent intracranial atherosclerosis with diffuse irregularity and mild through moderate/severe stenoses throughout the small intracranial vasculature. 4. Findings along the distal KHMY-gvdnzil-nerx-RIGHT ICAs suspicious for vasculopathy such as fibromuscular dysplasia, although notably fibromuscular dysplasia would be somewhat unusual in this demographic. 5. 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 Recommend clinical follow-up. 6. Additional description as above. Red Alert: #1-2 above The critical information above was relayed directly by me by telephone to Tito 08/18/2024 at 12:17 pm [facility]. Reading Location: [id number] Active Medications Active Medications Active Medications: Current Medications Generic Name Dose Route Start Last Admin Trade Name Freq PRN Reason Stop Dose Admin Acetaminophen 650 mg 08/18/24 16:47 Acetaminophen 325 Mg Tablet PO Q4H PRN PRN Pain 1-10 Or Fever>99.6 Albuterol Sulfate 2.5 mg 08/18/24 16:47 Albuterol 2.5 Mg/3 Ml Vial.Neb. INHALATION Q2H PRN PRN SOB &/OR WHEEZING Aspirin 81 mg 08/19/24 08:00 08/19/24 09:29 Aspirin 81 Mg Tab.Chew PO 81 mg BREAKFAST SANJUANA Administration Atorvastatin Calcium 40 mg 08/18/24 22:00 08/18/24 21:17 Atorvastatin Calcium 40 Mg Tablet PO 40 mg QHS SANJUANA Administration Clopidogrel Bisulfate 75 mg 08/19/24 10:00 08/19/24 09:31 Clopidogrel Bisulfate 75 Mg Tablet PO 75 mg DAILY SANJUANA Administration Enoxaparin Sodium 40 mg 08/19/24 10:00 08/19/24 09:29 Enoxaparin 40 Mg/0.4 Ml Syringe SC 40 mg DAILY SANJUANA Administration Hydralazine HCl 5 mg 08/18/24 16:47 Hydralazine 20 Mg/Ml Vial IV 08/19/24 16:47 Q30M PRN maintain BP parameters with HR <60 Sodium Chloride 250 mls @ 15 mls/hr 08/18/24 16:00 IV .[id number] PRN Saline Flush Sodium Chloride 250 mls @ 15 mls/hr 08/18/24 16:00 IV .[id number] PRN Additional IVPB Infusion Ceftriaxone Sodium 1 gm in 50 mls @ 100 mls/hr 08/19/24 10:00 08/19/24 10:08 Rocephin IV 08/26/24 10:01 Infused Q24 SANJUANA Infusion Labetalol HCl 10 - 20 mg 08/18/24 16:47 Labetalol 20mg/4ml Syringe IV 08/19/24 16:47 Q10M PRN PRN maintain BP parameters with HR >/=60 Lisinopril 30 mg 08/19/24 10:00 Lisinopril 10 Mg Tablet PO DAILY SANJUANA Melatonin 3 mg 08/18/24 16:47 Melatonin 3 Mg Tablet PO QHS PRN PRN INSOMNIA Metoprolol Tartrate 50 mg 08/19/24 10:38 08/19/24 10:44 Metoprolol Tartrate 50 Mg Tablet PO 50 mg BID SANJUANA Administration Protocol Multivitamins 1 tablet 08/19/24 08:00 08/19/24 09:29 Multivitamins,Therapeutic Tablet PO 1 tablet DAILYCM SANJUANA Administration Ondansetron HCl 4 mg 08/18/24 16:47 Ondansetron 4 Mg/2 Ml Vial IV Q8H PRN PRN NAUSEA/VOMITING Senna/Docusate Sodium 2 tablet 08/18/24 16:47 Senna/Docusate Sodium 1 Tablet PO BID PRN PRN Constipation Sodium Chloride 10 - 40 ml 08/18/24 16:00 08/19/24 09:31 0.9% Saline Lock 10 Ml Syringe IV 10 ml UD PRN Administration SALINE FLUSH NIHSS NIHSS Nursing Documentation NIHSS Nursing Documentation: NIHSS: Ischemic Stroke/TIA Start: 08/18/24 16:47 Text: For PCU Patients: NIH and Neuro Check every 4 Status: Active hours, PRN and with change in RN caregiver. Freq: [id number] Protocol: Activity Type Activity Date Activity User E-sign Co-sign Detail Recorded Client Recorded Date Recorded By Document 08/19/24 11:21 ELISE [id number] 08/19/24 11:53 ELISE 08/19/24 11:21 NIH Stroke Scale [NIHSS] A score of 0 is "normal" or asymptomatic . Total possible score is 42. Inpatient: RN or Physician to activate a stroke alert for onset of new stroke symptoms or with NIHSS increase >/= 3 points. Following change in neurological status, NIHSS will be performed per physician order or more frequently PRN. -1a. Level of Consciousness 0 - Alert; keenly responsive -1b. LOC Questions 1 - Answers ONE question correctly -1c. LOC Commands 0 - Performs BOTH tasks correctly -2. Best Gaze 0 - Normal -3. Visual 0 - No visual loss -4. Facial Palsy 0 - Normal symmetrical movements -5a. Left Arm 0 - No drift; arm holds 90 ( or 45) degrees for full 10 seconds -5b. Right Arm 0 - No drift; arm holds 90 ( or 45) degrees for full 10 seconds -6a. Left Leg 0 - No drift; leg holds 30- degree position for full 5 seconds -6b. Right Leg 0 - No drift; leg holds 30- degree position for full 5 seconds -7. Limb Ataxia 0 - Absent -8. Sensory 0 - Normal; no sensory loss -9. Best Language 0 - No aphasia; normal -10. Dysarthria 1 = Mild-to- moderate dysarthria; -11. Extinction and Inattention 0 - No abnormality -Total 2 Query Text:A score of 0 is "normal" or asymptomatic. Total possible score is 42 . ED: Notify Physician for NIHSS increase by > / = 3 points. Inpatient: RN or Physician to activate a stroke alert for NIHSS increase of > / = 3 points. Coma Scale [Assess] -Eye Opening Spontaneous -Motor Obeys Commands -Verbal Confused [Total] -Coma Scale Total 14 NIHSS 1a. Level of Consciousness: 0 - Alert; keenly responsive 1b. LOC Questions: 1 - Answers ONE question correctly 1c. LOC Commands: 0 - Performs BOTH tasks correctly 2. Best Gaze: 0 - Normal 3. Visual: 0 - No visual loss 4. Facial Palsy: 0 - Normal symmetrical movements 5a. Left Arm: 0 - No drift; arm holds 90 (or 45) degrees for full 10 seconds 5b. Right Arm: 0 - No drift; arm holds 90 (or 45) degrees for full 10 seconds 6a. Left Le - No drift; leg holds 30-degree position for full 5 seconds 6b. Right Le - No drift; leg holds 30-degree position for full 5 seconds 7. Limb Ataxia: 0 - Absent 8. Sensory: 0 - Normal; no sensory loss 9. Best Language: 1 - Dahe-ks-nxfbuecm aphasia; 10. Dysarthria: 1 = Eqpp-uz-fkoifkuz dysarthria; 11. Extinction and Inattention: 0 - No abnormality Total: 3 08/19/24 1417 Cosigner Signature (if applicable): CC: GARFIELD Deutsch~ Signed [facility]05-07-2025 History and physical note Author Mara Mar [facility] Note Date/Time August 18, 2024 9:47pm [facility] Medical Records Department [address] [place] [address] H&P Exam - Hospitalist 08/18/24 1305 MR#: [id number] Acct: [id number] Name: BEHZAD HAY Rep #:[id number] : 1940 84 From: Mara Mar DO PCP: Tasha Deutsch, OUTREACH COORDINATOR Status:ADM JENNY Location: [place] [address] HPI - General General Date of Admission: 08/18/24 Date of Service: 08/18/24 Chief Complaint: Confusion/dysarthria/dysmetria right-sided HPI Narrative BEHZAD HAY, is a 84 F who presented to the emergency department at [facility] on 08/18/2024 due to patient's family being concerned she needed an MRI to rule out a stroke. She was seen in emergency department 2 daysago at which time she had an episode of confusion where she could not figure outhow to get her garage open by pushing the button. Workup was negative and emergency department NIH was 0 at that time. She was discharged home after discussion with family. Another family member brought her in today who is visiting from out of town and noted that she continued to have episodes of confusion and was having difficulty with controlling the right side of her arm and leg and some speech changes. They indicated that early on the day of presentation she was unable to use a spoon to feed herself. They also indicatedthat she was having some difficulty walking with her right leg and was having word finding difficulty. Vital signs on presentation showed a temperature of 98, heart rate 81, respiratory rate 15, blood pressure was 187/89 and pulse ox was 100% on room air. CBC was unremarkable other than a mild left shift with a 79.2% neutrophilia. Coags were normal. Chemistry panel was overtly unremarkable other than a slightly elevated BUN at 27. Her creatinine was at her baseline of1.0. Glucose was 72 and we did obtain a hemoglobin A1c that was 5.7. Lactic acid was normal at less than 1. Liver functions were unremarkable. Her UA was consistent with infection had nitrites, leuk esterase, white cells and 3+ bacteria. Toxicology screen was negative and at the alcohol level is negative. CT of the brain in the emergency department showed no acute cranial abnormalities and chronic age-related microvascular ischemic changes along with age-related senescent changes and atherosclerotic calcific disease. Chest x- rayshowed no acute findings. There is concern for stroke as well as urinary tract infection she was started on ceftriaxone and urine culture was sent. [facility] Medical History (Updated 08/18/24 @ 21:[address] Mara Mar DO) Osteoarthritis CKD (chronic kidney disease) stage 4, GFR 15-29 ml/min History of atrial fibrillation Osteoarthritis Fe deficiency anemia Home Medications ?Medication ?Instructions ?Recorded ?Last Taken ?Type lisinopril 30 mg tablet 30 mg PO DAILY 08/16/2411/05 History multivitamin (Daily Multi-Vitamin 1 tab PO DAILY 08/1608/18/24 History tablet) Allergy/AdvReac Type Severity Reaction Status Date / Time nitrofurantoin (From Allergy Rash Verified 08/18/24 09:54 Macrobid) Family History unable to obtain unable to obtain Surgical History Hx of tonsillectomy Social History household members: none Smoking Status: Never smoker alcohol intake: never substance use type: does not use ROS Constitutional Constitutional: Denies anorexia, change in weight, chills, fatigue, fever(s), malaise, night sweats, weakness or other Eyes Eyes: Denies blurry vision, change in eye color, change in vision, discharge from eye(s), double vision, erythema, eye pain, loss of vision or other ENT HEENT: Denies abnormal hearing, dysphagia, ear pain, epistaxis, headache(s), hearing loss, nasal congestion, nasal discharge, post nasal drip, sinus pressure, sore throat or other Cardiovascular Cardiovascular: Denies chest pain, claudication, dyspnea on exertion, edema, lightheadedness, orthopnea, palpitations, paroxysmal nocturnal dyspnea, rapid heart rate, syncope or other Respiratory/Chest Respiratory/Chest: Denies cough, dyspnea, excessive phlegm production, hemoptysis, productive cough, shortness of breath at rest, shortness of breath with exertion, wheezing or other Gastrointestinal Gastrointestinal: Denies abdominal pain, coffee ground emesis, constipation, diarrhea, dyspepsia, hematemesis, hematochezia, loose stools, melena, nausea, vomiting or other Genitourinary Genitourinary: Reports urinary frequency; Denies burning urination, difficulty urinating, dysuria, hematuria, nocturia, urinary hesitancy, urinary incontinence, urinary urgency or other Musculoskeletal Musculoskeletal: Denies arthralgias, back pain, joint pain, joint stiffness, joint swelling, myalgias, neck pain or other Neurologic Neurologic: Reports abnormal speech, confusion and focal weakness; Denies abnormal gait, disequilibrium, dizziness, headache(s), numbness, paresthesias, seizure- like activity, seizures, syncope, tingling, tremor(s) or other Psychiatric Psychiatric: Denies anxiety, depression, homicidal ideation, suicidal ideation or other Endocrine Endocrinology: Denies change in body appearance, cold intolerance, excessive sweating, heat intolerance, polydipsia, polyuria or other Hematologic/Lymphatic Hematologic/Lymphatic: Denies anemia, easy bleeding, easy bruising, lymphadenopathy or other Allergic/Immunologic Allergic/Immunologic: Denies rhinitis, hives, eczemia, asthma or other Vital Signs Vital Signs Vital Signs: 08/18/24 09:54 08/18/24 10:52 08/18/24 11:00 Temperature 98 F Temperature Source Oral Pulse Rate 81 69 71 Respiratory Rate 15 14 14 Blood Pressure 187/89 H 165/72 H 152/87 H Blood Pressure Mean 121 103 108 Pulse Ox 100 99 Oxygen Delivery Method Room Air Room Air Room Air 08/18/24 12:36 Temperature Temperature Source Pulse Rate 78 Respiratory Rate 16 Blood Pressure 179/85 H Blood Pressure Mean 116 Pulse Ox 96 Oxygen Delivery Method Room Air Weight Weight: 55.8 kg Body Mass Index (BMI) 24.0 Physical Exam Const alert, no apparent distress, average body habitus and well nourished Constitutional Narrative: Very pleasant elderly, mildly confused, white female, sitting up in bed, appearscomfortable, non-toxic General Appearance: cooperative HEENT normocephalic, head/scalp atraumatic and moist oral mucous membranes HEENT Narrative: Mallampati 2, no thrush Eyes PERRL, EOMs intact bilaterally and conjunctivae normal Neck no lymphadenopathy, supple and no carotid bruits Neck Narrative: trachea midline, no thyroid enlargement Resp normal respiratory effort, no retractions, no use of accessory muscles and clearto auscultation bilaterally Auscultation: Negative for rales, rhonchi or wheezes Cardio regular rate, regular rhythm, S1 normal heart sound, S2 normal heart sound, no murmurs, no rub, no gallops and no clicks GI normal to inspection, nondistended, normoactive bowel sounds, soft to palpation and non-tender Extremity no clubbing, cyanosis or edema Extremity Narrative: 2+ pedal and radial pulses Skin skin turgor normal, no jaundice, no petechiae and no mottling Neuro CN's II-XII intact bilaterally Neuro Narrative: dysmetria, expressive aphasia, Sensorium / Orientation: awake, alert, oriented to person and oriented to place;Negative for oriented to time Speech: Negative for speech normal Psych affect normal Psych Narrative: very pleasant Results Lab / Micro Data 08/18/24 10:50 08/18/24 10:50 Labs: Laboratory Results - last 24 hr 08/18/24 10:50: WBC 8.4, RBC 4.17 L, Hgb 13.0, Hct 40.0, MCV 95.9, MCH 31.2, MCHC 32.5, RDW Std Deviation 45.8 H, RDW Coeff of Dalton 13.0, Plt Count 254, MPV 9.1, Immature Gran % (Auto) 0.400, Neut % (Auto) 79.2 H, Lymph % (Auto) 10.9 L, Waller % (Auto) 7.5, Eos % (Auto) 0.7, Baso % (Auto) 1.3 H, Absolute Neuts (auto) 6.6, Absolute Lymphs (auto) 0.91, Nucleated RBC % 0, PT 13.1, INR 1.0, APTT 24.6, Sodium 142, Potassium 4.3, Chloride 106, Carbon Dioxide 25.9, Anion Gap 11, BUN 27 H, Creatinine 1.00, Estim Creat Clear Calc 31.63 L, Est GFR (MDRD) Non-Af 55 L, BUN/Creatinine Ratio 27.4 H, Glucose 72, Calcium 10.0, Total Bilirubin 0.34, Direct Bilirubin 0.13, AST 36 H, ALT 24, Alkaline Phosphatase 82, Total Protein 7.6, Albumin 4.4, Globulin 3.2, Ethyl Alcohol < 10.1 08/18/24 11:35: Urine Color Yellow, Urine Clarity Sl. Cloudy, Urine pH 7.0, Ur Specific [place] 1.005, Urine Protein 30 H, Urine Glucose (UA) Normal, Urine Ketones Negative, Urine Occult Blood 50 H, Urine Nitrite Positive H, Urine Bilirubin Negative, Urine Urobilinogen Normal, Ur Leukocyte Esterase 500 H, Urine RBC 0 SEEN, Urine WBC 10-25 SEEN, Ur Squamous Epith Cells 0 SEEN, Urine Bacteria 3+, Urine Mucus 0 SEEN, Urine Opiates Screen NEGATIVE, U Buprenorphine Qual NEGATIVE, Ur Oxycodone Screen NEGATIVE, Urine Methadone Screen NEGATIVE, Urine Fentanyl Screen NEGATIVE, Ur Barbiturates Screen NEGATIVE, Ur Phencyclidine Scrn NEGATIVE, Ur Amphetamines Screen NEGATIVE, U Benzodiazepines Scrn NEGATIVE, Urine Cocaine Screen NEGATIVE, U Cannabinoids Screen NEGATIVE Assessment & Plan Assessment/Plan (1) Dysarthria: (2) Dysmetria: (3) Abnormal urinalysis: PLAN: Plan Dysarthria/expressive aphasia - Highly suspect patient has acute infarct - Start aspirin 81 mg daily - Start atorvastatin 40 mg daily - Check CTA of the head and neck - Check MRI - Check echocardiogram - Check lipid panel - Check hemoglobin A1c - Hold home lisinopril now for permissive hypertension - NIH per protocol - Will add Plavix if stroke identified - Consult neurology Abnormal UA - Suspicious for infection - Culture sent - Start ceftriaxone 1 g daily CKD Stage 4 -creat at baseline -monitor Essential hypertension - Hold home lisinopril - Blood pressure control per stroke protocol with as needed medications - Allow for permissive hypertension with symptoms on presentation Osteoarthritis - As needed Tylenol available History of paroxysmal atrial fibrillation - Noted in documentation from 2021 in the emergency department at which time shespontaneously converted - It does not appear she is on any anticoagulation and was not discharged on anyat that time. History otherwise is unclear - Echocardiogram is pending - Check TSH - Currently sinus rhythm but if she did have a stroke this could be the etiology DVT prophylaxis - Continue enoxaparin 40 mg CODE STATUS - Full code Charges/Coding Visit Charges Inpatient E&M: 24755 Init Hosp L2 08/18/24 0258 <Electronically signed by Mara Mar DO> Cosigner Signature (if applicable): CC: GARFIELD Deutsch; Dr. Mara Mar DO~ Signed [facility] Work Phone: 1(628) 973-898905-07-2025 History and physical note [facility] Medical Records Department [address] [place] [id number] H&P Exam - Hospitalist 08/18/24 1305 MR#: [id number] Acct: [id number] Name: BEHZAD HAY Rep #:[id number] : 1940 84 From: Mara Mar DO PCP: Tasha Deutsch, OUTREACH COORDINATOR Status:ADM JENNY Location: [place] [address] HPI - General General Date of Admission: 08/18/24 Date of Service: 08/18/24 Chief Complaint: Confusion/dysarthria/dysmetria right-sided HPI Narrative BEHZAD HAY, is a 84 F who presented to the emergency department at [facility] on 08/18/2024 due to patient's family being concerned she needed an MRI to rule out a stroke. She was seen in emergency department 2 daysago at which time she had an episode of confusion where she couldnot figure outhow to get her garage open by pushing the button. Workup was negative and emergency department NIH was 0 at that time. She was discharged home after discussion with family. Another family member brought her in today who is visiting from out of town and noted that she continued to haveepisodes of confusion and was having difficulty with controlling the right side of her arm and leg and some speech changes. They indicated that early on the day of presentation she was unable to use a spoon to feed herself. They also indicatedthat she was having some difficulty walking with her right leg and was having word finding difficulty. Vital signs on presentation showed a temperature of 98, heart rate 81, respiratory rate 15, blood pressure was 187/89 and pulse ox was 100% on room air. CBC was unremarkable other than a mild left shift with a 79.2% neutrophilia. Coags were normal. Chemistry panel was overtly unremarkable other than a slightly elevated BUN at 27. Her creatinine was at her baseline of1.0. Glucose was 72 and we didobtain a hemoglobin A1c that was 5.7. Lactic acid was normal at less than 1. Liver functions were unremarkable. Her UA was consistent with infection had nitrites, leuk esterase, white cells and 3+ bacteria. Toxicology screen was negative and at the alcohol level is negative. CT of the brain in the emergency department showed no acute cranial abnormalities and chronic age-related microvascular ischemic changes along with age-related senescent changes and atherosclerotic calcific disease. Chest x-rayshowed no acute findings. There is concern for stroke as well as urinary tract infection she was started on ceftriaxone and urine culture was sent. [facility] Medical History (Updated 08/18/24 @ 21:[address] Mara Mar DO) Osteoarthritis CKD (chronic kidney disease) stage 4, GFR 15-29 ml/min History of atrial fibrillation Osteoarthritis Fe deficiency anemia Home Medications ?Medication ?Instructions ?Recorded ?Last Taken ?Type lisinopril 30 mg tablet 30 mg PO DAILY 08/16/2411/05 History multivitamin (Daily Multi-Vitamin 1 tab PO DAILY 08/1608/18/24 History tablet) Allergy/AdvReac Type Severity Reaction Status Date / Time nitrofurantoin (From Allergy Rash Verified 08/18/24 09:54 Macrobid) Family History unable to obtain unable to obtain Surgical History Hx of tonsillectomy Social History household members: none Smoking Status: Never smoker alcohol intake: never substance use type: does not use ROS Constitutional Constitutional: Denies anorexia, change in weight, chills, fatigue, fever(s), malaise, night sweats, weakness or other Eyes Eyes: Denies blurry vision, change in eye color, change in vision, discharge from eye(s), double vision, erythema, eye pain, loss of vision or other ENT HEENT: Denies abnormal hearing, dysphagia, ear pain, epistaxis, headache(s), hearing loss, nasal congestion, nasal discharge, post nasal drip, sinus pressure, sore throat or other Cardiovascular Cardiovascular: Denies chest pain, claudication, dyspnea on exertion, edema, lightheadedness, orthopnea, palpitations, paroxysmal nocturnal dyspnea, rapid heart rate, syncope or other Respiratory/Chest Respiratory/Chest: Denies cough, dyspnea, excessive phlegm production, hemoptysis, productive cough, shortness of breath at rest, shortness of breath with exertion, wheezing or other Gastrointestinal Gastrointestinal: Denies abdominal pain, coffee ground emesis, constipation, diarrhea, dyspepsia, hematemesis, hematochezia, loose stools, melena, nausea, vomiting or other Genitourinary Genitourinary: Reports urinary frequency; Denies burning urination, difficulty urinating, dysuria, hematuria, nocturia, urinary hesitancy, urinary incontinence, urinary urgency or other Musculoskeletal Musculoskeletal: Denies arthralgias, back pain, joint pain, joint stiffness, joint swelling, myalgias, neck pain or other Neurologic Neurologic: Reports abnormal speech, confusion and focal weakness; Denies abnormal gait, disequilibrium, dizziness, headache(s), numbness, paresthesias, seizure-like activity, seizures, syncope, tingling, tremor(s) or other Psychiatric Psychiatric: Denies anxiety, depression, homicidal ideation, suicidal ideation or other Endocrine Endocrinology: Denies change in body appearance, cold intolerance, excessive sweating, heat intolerance, polydipsia, polyuria or other Hematologic/Lymphatic Hematologic/Lymphatic: Denies anemia, easy bleeding, easy bruising, lymphadenopathy or other Allergic/Immunologic Allergic/Immunologic: Denies rhinitis, hives, eczemia, asthma or other Vital Signs Vital Signs Vital Signs: 08/18/24 09:54 08/18/24 10:52 08/18/24 11:00 Temperature 98 F Temperature Source Oral Pulse Rate 81 69 71 Respiratory Rate 15 14 14 Blood Pressure 187/89 H 165/72 H 152/87 H Blood Pressure Mean 121 103 108 Pulse Ox 100 99 Oxygen Delivery Method Room Air Room Air Room Air 08/18/24 12:36 Temperature Temperature Source Pulse Rate 78 Respiratory Rate 16 Blood Pressure 179/85 H Blood Pressure Mean 116 Pulse Ox 96 Oxygen Delivery Method Room Air Weight Weight: 55.8 kg Body Mass Index (BMI) 24.0 Physical Exam Const alert, no apparent distress, average body habitus and well nourished Constitutional Narrative: Very pleasant elderly, mildly confused, white female, sitting up in bed, appearscomfortable, non-toxic General Appearance: cooperative HEENT normocephalic, head/scalp atraumatic and moist oral mucous membranes HEENT Narrative: Mallampati 2, no thrush Eyes PERRL, EOMs intact bilaterally and conjunctivae normal Neck no lymphadenopathy, supple and no carotid bruits Neck Narrative: trachea midline, no thyroid enlargement Resp normal respiratory effort, no retractions, no use of accessory muscles and clearto auscultation bilaterally Auscultation: Negative for rales, rhonchi or wheezes Cardio regular rate, regular rhythm, S1 normal heart sound, S2 normal heart sound, no murmurs, no rub, no gallops and no clicks GI normal to inspection, nondistended, normoactive bowel sounds, soft to palpation and non-tender Extremity no clubbing, cyanosis or edema Extremity Narrative: 2+ pedal and radial pulses Skin skin turgor normal, no jaundice, no petechiae and no mottling Neuro CN's II-XII intact bilaterally Neuro Narrative: dysmetria, expressive aphasia, Sensorium / Orientation: awake, alert, oriented to person and oriented to place;Negative for oriented to time Speech: Negative for speech normal Psych affect normal Psych Narrative: very pleasant Results Lab / Micro Data 08/18/24 10:50 08/18/24 10:50 Labs: Laboratory Results - last 24 hr 08/18/24 10:50: WBC 8.4, RBC 4.17 L, Hgb 13.0, Hct 40.0, MCV 95.9, MCH 31.2, MCHC 32.5, RDW Std Deviation 45.8 H, RDW Coeff of Dalton 13.0, Plt Count 254, MPV 9.1, Immature Gran % (Auto) 0.400, Neut % (Auto) 79.2 H, Lymph % (Auto) 10.9 L, Waller % (Auto) 7.5, Eos % (Auto) 0.7, Baso % (Auto) 1.3 H, Absolute Neuts (auto) 6.6, Absolute Lymphs (auto) 0.91, Nucleated RBC % 0, PT 13.1, INR 1.0, APTT 24.6, Sodium 142, Potassium 4.3, Chloride 106, Carbon Dioxide 25.9, Anion Gap 11, BUN 27 H, Creatinine 1.00, Estim Creat Clear Calc 31.63 L, Est GFR (MDRD) Non-Af 55 L, BUN/Creatinine Ratio 27.4 H, Glucose 72, Calcium 10.0, Total Bilirubin 0.34, Direct Bilirubin 0.13, AST 36 H, ALT 24, Alkaline [id number], Total Protein 7.6, Albumin 4.4, Globulin 3.2, Ethyl Alcohol < 10.1 08/18/24 11:35: Urine Color Yellow, Urine Clarity Sl. Cloudy, Urine pH 7.0, Ur Specific [place] 1.005, Urine Protein 30 H, Urine Glucose (UA) Normal, Urine Ketones Negative, Urine Occult Blood 50 H, Urine Nitrite Positive H, Urine Bilirubin Negative, Urine Urobilinogen Normal, Ur Leukocyte [id number] H, Urine RBC 0 SEEN, Urine WBC 10-25 SEEN, Ur Squamous Epith Cells 0 SEEN, Urine Bacteria 3+, Urine Mucus 0 SEEN, Urine Opiates Screen NEGATIVE, U Buprenorphine Qual NEGATIVE, Ur Oxycodone ScreenNEGATIVE, Urine Methadone Screen NEGATIVE, Urine Fentanyl Screen NEGATIVE, Ur Barbiturates Screen NEGATIVE, Ur Phencyclidine Scrn NEGATIVE, Ur Amphetamines Screen NEGATIVE, U Benzodiazepines Scrn NEGATIVE, Urine Cocaine Screen NEGATIVE, U Cannabinoids Screen NEGATIVE Assessment & Plan Assessment/Plan (1) Dysarthria: (2) Dysmetria: (3) Abnormal urinalysis: PLAN: Plan Dysarthria/expressive aphasia - Highly suspect patient has acute infarct - Start aspirin 81 mg daily - Start atorvastatin 40 mg daily - Check CTA of the head and neck - Check MRI - Check echocardiogram - Check lipid panel - Check hemoglobin A1c - Hold home lisinopril now for permissive hypertension - NIH per protocol - Will add Plavix if stroke identified - Consult neurology Abnormal UA - Suspicious for infection - Culture sent - Start ceftriaxone 1 g daily CKD Stage 4 -creat at baseline -monitor Essential hypertension - Hold home lisinopril - Blood pressure control per stroke protocol with as needed medications - Allow for permissive hypertension with symptoms on presentation Osteoarthritis - As needed Tylenol available History of paroxysmal atrial fibrillation - Noted in documentation from 2021 in the emergency department at which time shespontaneously converted - It does not appear she is on any anticoagulation and was not discharged on anyat that time. History otherwise is unclear - Echocardiogram is pending - Check TSH - Currently sinus rhythm but if she did have a stroke this could be the etiology DVT prophylaxis - Continue enoxaparin 40 mg CODE STATUS - Full code Charges/Coding Visit Charges Inpatient E&M: 10169 Init Hosp L2 08/18/247 Cosigner Signature (if applicable): CC: GARFIELD Deutsch; Dr. Mara Mar, DO~ Signed [facility]05-07-2025 Evaluation note* Diagnosis Onset Date Resolution Status Admit Date Acute UTI acute August 18, 2024 1:06pm AMS (altered mental status) acute August 18, 2024 1:06pm Stroke acute August 18, 2024 1:06pm [facility] Work Phone: 1([phone]) 209-971705-07-2025 Evaluation note* Diagnosis Onset Date Resolution Status Admit Date Abnormal urinalysis acute August 182024 1:06pm Dysarthria acute August 18, 2024 1:06pm Dysmetria acute August 18, 2024 1:06pm Acute UTI deleted August 18, 2024 1:06pm AMS (altered mental status) deleted August 18, 2024 1:06pm Stroke deleted August 18, 2024 1:06pm [facility] Work Phone: [phone]) 445-197505-07-2025 Evaluation note* Diagnosis Onset Date Resolution Status Admit Date Dysarthria acute August 18, 2024 1:06pm Abnormal urinalysis resolved August 182024 1:06pm Acute UTI deleted August 18, 2024 1:06pm AMS (altered mental status) deleted August 18, 2024 1:06pm Dysmetria deleted August 18, 2024 1:06pm Stroke deleted August 18, 2024 1:06pm Acute cystitis acute August 22, 2024 1:55pm Acute right-sided weakness acute August 22, 2024 1:55pm Aphasia complicating stroke acute August 22, 2024 1:55pm Ataxia due to acute cerebrovascular disease acute August 1:55pm Chronic anticoagulation acute 2024 1:55pm 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 acute August 22, 2024 1 :55pm Debility acute August 22, 2024 1:55pm Dysarthria acute August 22, 2024 1:55pm Dyslipidemia acute August 22 1:55pm Heme + stool acute August 22 1:55pm Ischemic cerebrovascular accident (CVA) acute August 22, 2024 1 :55pm Malodorous urine acute August 1:55pm Normochromic normocytic anemia acute August 22, 2024 1:55pm Paroxysmal atrial fibrillation acute August 22, 2024 1:55pm Thoracic kyphosis acute August 1:55pm HTN (hypertension) chronic August 222024 1:55pm [facility] Work Phone: [phone]) 883-996105-07-2025 Evaluation note* Diagnosis Onset Date Resolution Status Admit Date Dysarthria acute August 18, 2024 1:06pm Abnormal urinalysis resolved August 182024 1:06pm Acute UTI deleted August 18, 2024 1:06pm AMS (altered mental status) deleted August 18, 2024 1:06pm Dysmetria deleted August 18, 2024 1:06pm Stroke deleted August 18, 2024 1:06pm Acute right-sided weakness acute August 22, 2024 1:55pm Aphasia complicating stroke acute August 22, 2024 1:55pm 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 acute August 22, 2024 1 :55pm Debility acute August 22, 2024 1:55pm Dysarthria acute August 22, 2024 1:55pm Heme + stool acute August 22 1:55pm Ischemic cerebrovascular accident (CVA) acute August 22, 2024 1 :55pm Normochromic normocytic anemia acute August 22, 2024 1:55pm Acute cystitis resolved August 22, 2024 1:55pm Ataxia due to acute cerebrovascular disease resolved August 1:55pm Malodorous urine resolved August 1:55pm Chronic anticoagulation inactive 2024 1:55pm Dyslipidemia inactive August 22 1:55pm HTN (hypertension) inactive August 222024 1:55pm Paroxysmal atrial fibrillation inact basilio August 22, 2024 1:55pm Thoracic kyphosis inactive August 1:55pm [facility] Work Phone: [phone]) [phone] Evaluation note* Diagnosis Onset Date Resolution Status Admit Date Dysarthria acute August 18, 2024 1:06pm Abnormal urinalysis resolved August 182024 1:06pm Acute UTI deleted August 18, 2024 1:06pm AMS (altered mental status) deleted August 18, 2024 1:06pm Dysmetria deleted August 18, 2024 1:06pm Stroke deleted August 18, 2024 1:06pm Acute right-sided weakness acute August 22, 2024 1:55pm Aphasia complicating stroke acute August 22, 2024 1:55pm 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 acute August 22, 2024 1 :55pm Debility acute August 22, 2024 1:55pm Dysarthria acute August 22, 2024 1:55pm Heme + stool acute August 22 1:55pm Ischemic cerebrovascular accident (CVA) acute August 22, 2024 1 :55pm Normochromic normocytic anemia acute August 22, 2024 1:55pm Paroxysmal atrial fibrillation acute August 22, 2024 1:55pm Acute cystitis resolved August 22, 2024 1:55pm Ataxia due to acute cerebrovascular disease resolved August 1:55pm Malodorous urine resolved August 1:55pm Chronic anticoagulation inactive 2024 1:55pm Dyslipidemia inactive August 22 1:55pm HTN (hypertension) inactive August 222024 1:55pm Thoracic kyphosis inactive August 1:55pm Acute right-sided weakness acute October 04, 2024 8:55am Cerebral aneurysm without rupture acute October 04, 2024 8:55am 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 acute October 04, 2024 8:55am Debility acute October 04 8:55am Ischemic cerebrovascular accident (CVA) acute October 04, 2024 8:55am Paroxysmal atrial fibrillation acute October 04, 2024 8:55am [facility] [employer] [facility] Work Phone: [phone]) 540-173405-07-2025 Evaluation note* Diagnosis Onset Date Resolution Status Admit Date Dysarthria acute August 18, 2024 1:06pm Abnormal urinalysis resolved August 182024 1:06pm Acute UTI deleted August 18, 2024 1:06pm AMS (altered mental status) deleted August 18, 2024 1:06pm Dysmetria deleted August 18, 2024 1:06pm Stroke deleted August 18, 2024 1:06pm Acute right-sided weakness acute August 22, 2024 1:55pm Aphasia complicating stroke acute August 22, 2024 1:55pm 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 acute August 22, 2024 1 :55pm Debility acute August 22, 2024 1:55pm Dysarthria acute August 22, 2024 1:55pm Heme + stool acute August 22 1:55pm Normochromic normocytic anemia acute August 22, 2024 1:55pm Dyslipidemia chronic August 22 1:55pm HTN (hypertension) chronic August 222024 1:55pm Ischemic cerebrovascular accident (CVA) chronic August 22, 2024 1 :55pm Paroxysmal atrial fibrillation chron ic August 22, 2024 1:55pm Acute cystitis resolved August 22, 2024 1:55pm Ataxia due to acute cerebrovascular disease resolved August 1:55pm Malodorous urine resolved August 1:55pm Chronic anticoagulation inactive M 2024 1:55pm Thoracic kyphosis inactive August 1:55pm Acute right-sided weakness acute October 04, 2024 8:55am 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 acute October 04, 2024 8:55am Debility acute October 04 8:55am Cerebral aneurysm without rupture chronic October 04, 2024 8:55am Ischemic cerebrovascular accident (CVA) chronic October 04, 2024 8:55am Paroxysmal atrial fibrillation chron ic October 04, 2024 8:55am Cerebral aneurysm without rupture chronic October 12, 2024 9 :13am Dyslipidemia chronic October 12 9:13am HTN (hypertension) chronic October 122024 9:13am Ischemic cerebrovascular accident (CVA) chronic October 12, 2024 9 :13am Paroxysmal atrial fibrillation chron ic October 12, 2024 9:13am [facility] Work Phone: [phone]) 545-226205-07-2025 Radiology Diagnostic study note [facility] Imaging Services [address] [place] [address] [id number] STROKE CTA Head AND Neck W/Con MR#: [id number] Acct: [id number] Name: BEHZAD HAY Rep #: [id number] : 1940 F 84 From: Maday Meléndez MD PCP: Tasha Deutsch, OUTREACH COORDINATOR Status: REG ER Study:STROKE CTA Head AND Neck W/Con Date of Exam: 08/18/24 Exam# [id number] Ordering Dr: Eliana Mar DO PROCEDURE: STROKE CT HEAD WITHOUT CONTRAST AND CTA HEAD AND NECK W/CON 08/18/2024 REASON FOR EXAM: NEURO DEFICIT, ACUTE, STROKE SUSPECTED TECHNIQUE: CT head was performed without IV contrast. CTA head and neck was then performedwith IV contrast. Multiplanar reformats as well as MIP and 3D reconstructions were generated. IV contrast: Isovue 370 VOLUME: 75mL RADIATION DOSE SUMMARY: CTDlvol: 44.99+ 20.76+ 13.56 mGy DLP: 1272.81 mGycm One or more dose reduction techniques were used (e.g., Automated exposure control, adjustment of the mA and/or kV according to patient size, use of iterative reconstruction technique). COMPARISON: 08/16/2024 FINDINGS: CT HEAD: Cerebrum: Focal hypodensity with diminished chaves-white differentiation in the high LEFT parietal lobe along the postcentral sulcus. No significant mass-effect or hemorrhagic conversion.. Additional age- indeterminate hypodensity within the LEFT thalamus.. Suspected a punctate remote lacunar infarct in the LEFT caudate. Mild/moderate cerebral volume loss. Mild background supratentorial white matter hypodensities compatible with chronic microvascular ischemia. Cerebellum/brainstem: Unremarkable. Note slight limitation due to beam hardeningartifact. Ventricles/extra-axial spaces: Age-appropriate appearance. Visualized paranasal sinuses/mastoid air cells: Unremarkable. Scalp/calvarium: Unremarkable. Other: Bilateral cataract surgery. Intracranial atherosclerosis.. CTA NECK: Aortic Arch: Atherosclerosis.. Brachiocephalic and subclavians: Patent. RIGHT Carotid: Right CCA: Patent. Right ICA: Patent. Focal irregularity with beaded appearance distally.. Right ECA: Patent. LEFT Carotid: Left CCA: Patent. Left ICA: Nonobstructing atherosclerosis proximally. Focal irregularity with beaded appearance distally. Left ECA: Patent. Vertebrals: RIGHT dominant. LEFT vertebral arises directly from the arch, normal variant.. Both vertebrals form the basilar. RIGHT Vertebral: Patent. Slight irregularity distally. LEFT Vertebral: Patent. Mild multifocal irregularity. CTA HEAD: Anterior circulation: Nonobstructing atherosclerosis in the carotid siphons.. Diffuse irregularity with multifocal mild through moderate/severe stenoses favoring the smaller branches such as M2/M3 and distal A2/A3. Posterior circulation: Focal [id number] stenosis of proximal RIGHT PICA. Tortuous basilar with 40 % stenosis distally. Similar diffuse irregularity though is multifocal mild through moderate/severe stenoses favoring smaller branches such as P2/P3. AICA nonvisualized. 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 Venous structures: Grossly unremarkable within limits of nondedicated technique. Other: Demineralization... CT/STROKE CTA Head AND Neck W/Con IMPRESSION: 1. Findings suspicious for acute infarct along the high LEFT parietal lobe. Additional age-indeterminate hypodensity in the LEFT caudate indeterminate for remote lacunar infarct versus acute ischemia. No hemorrhagic conversion or mass-effect. Consider MRI as indicated. 2. No large vessel occlusion identified. 3. 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 Fairly prominent intracranial atherosclerosis with diffuse irregularity and mild through moderate/severe stenoses throughout the small intracranial vasculature. 4. Findings along the distal DTCR-[id number]-RIGHT ICAs suspicious for vasculopathy such as fibromuscular dysplasia, although notably fibromuscular dysplasia would be somewhat unusual in this demographic. 5. 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 Recommend clinical follow-up. 6. Additional description as above. Red Alert: #1-2 above The critical information above was relayed directly by me by telephone to [facility] 08/18/2024 at 12:17 pm [facility]. Reading Location: [id number] CC: OUTREACH COORDINATOR Tasha Deutsch; Dr. Mara Mar, ~ Patient Carrier: Signed [facility] [facility]03-24-2025 Telephone encounter Note* Telephone Encounter - Tasha Deutsch APRN.CNP - 07/05/2024 1:03 PM EDT The following approved medication requests have been transmitted electronically. Requested Prescriptions Pending Prescriptions Disp Refills lisinopril (ZESTRIL) 30 mg tablet 90 tablet 3 Sig: Take 1 tablet by mouth once daily. Tasha Deutsch APRN.CNP [facility]03-24-2025 Miscellaneous Notes* Telephone Encounter - Tasha Deutsch APRN.CNP - 07/05/2024 1:03 PM EDT The following approved medication requests have been transmitted electronically. Requested Prescriptions Pending Prescriptions Disp Refills lisinopril (ZESTRIL) 30 mg tablet 90 tablet 3 Sig: Take 1 tablet by mouth once daily. Tasha Deutsch APRN.CNP * Telephone Encounter - Tenisha Thao - 07/05/2024 9:02 AM EDT Prescription Refill Information The patient has been identified by name and date of : Yes Caregiver verified no other encounters exist for this prescription request: Yes Caregiver confirmed with patient/requestor that no other refills are due, in the near future, with this provider at this time: Yes The last office visit in the department: 04/26/2024 Does the patient have a future office visit with this provider/department: Yes Requested Prescriptions Pending Prescriptions Disp Refills lisinopril (ZESTRIL) 30 mg tablet 90 tablet 3 Sig: Take 1 tablet by mouth once daily. Tenisha Quarles July 05, 2024 9:03 AM documented in [facility]25 Telephone encounter Note * Telephone Encounter - Tenisha Thao - 07/05/2024 9:02 AM EDT Prescription Refill Information The patient has been identified by name and date of : Yes Caregiver verified no other encounters exist for this prescription request: Yes Caregiver confirmed with patient/requestor that no other refills are due, in the near future, with this provider at this time: Yes The last office visit in the department: 04/26/2024 Does the patient have a future office visit with this provider/department: Yes Requested Prescriptions Pending Prescriptions Disp Refills lisinopril (ZESTRIL) 30 mg tablet 90 tablet 3 Sig: Take 1 tablet by mouth once daily. Tenisha Quarles July 05, 2024 9:03 AM [facility]01-13-2025 Telephone encounter Note* Telephone Encounter - Winsome Butler MA - 04/26/2024 4:49 PM EST Patient was made aware of the results. Patient verbalizes understanding. Winsome Butler Ma [facility]01-13-2025 Miscellaneous Notes* Telephone Encounter - Winsome Butler MA - 04/26/2024 4:49 PM EST Patient was made aware of the results. Patient verbalizes understanding. Winsome Butler Ma * Telephone Encounter - Tasha Deutsch APRN.CNP - 04/26/2024 4:39 PM EST Please let patient know that it looks like she has a bladder infection. I do not want her to wait until Bran for the culture. I am going to send a prescription for amoxicillin 500 mg 3 times daily to the pharmacy for her. She will need to take it for 10 days. documented in this encounterK[facility]01-13-2025 Telephone encounter Note * Telephone Encounter - Tasha Deutsch APRN.CNP - 04/26/2024 4:39 PM EST Please let patient know that it looks like she has a bladder infection. I do not want her to wait until Friday for the culture. I am going to send a prescription for amoxicillin 500 mg 3 times daily to the pharmacy for her. She will need to take it for 10 days. [facility]01-13-2025 Instructions* Patient Instructions* Tasha Deutsch APRN.CNP - 04/26/2024 10:46 AM EST 1) Check labs 2) Duoderm applied to left foot 3) Consider sheep's wool for left foot 4) Follow up in 6 months documented in this encounterK[facility]01-13-2025 NoteHNO ID: [id number] Author: TASHA DEUTSCH APRN.CNP Service: ? Author Type: Clinical Nurse Specialist Type: Progress Notes Filed: 04/26/2024 10:53 Note Text: This is a 84 year old female who presents today with: Patient presents with: 6 Month Exam HISTORY OF PRESENT ILLNESS: Behzad Hay is a 84 year old female. Patient presents with: 6 Month Exam Sore on left lateral foot hurting- sore that is healed but a prominent bone PAST MEDICAL HISTORY: PAST MEDICAL HISTORY Diagnosis Date Abnormal CT of the abdomen 01/24/2014 localized perihepatic fluid indeterminate, 4mm density too small for ID, fusiforma sortic ectasia Anemia Arthritis Cerebral degeneration (HCC) Collagenous colitis Degenerative lumbar disc Dyslipidemia GERD (gastroesophageal reflux disease) H/O colonoscopy 09/23/2014 small internal hemorrhoids otherwise WNL. No further surveillance recommended Hiatal hernia History of esophagogastroduodenoscopy (EGD) 09/23/2014 [facility]: All normal HTN (hypertension) Hyperlipidemia, mixed Osteoarthritis Osteopenia PUD (peptic ulcer disease) 2013 Vitamin D deficiency PAST SURGICAL HISTORY Procedure Laterality Date BUNIONECTOMY, LAPIDUS-TYPE Left 03/30/2007 Dr. Beltran BUNIONECTOMY, LAPIDUS-TYPE Right 03/30/2008 Dr. Beltran CATARACT EXTRACTION W/ INTRAOCULAR LENS IMPLANT HX Left 03/31/2003 Dr. Sosa COLONOSCOPY 09/23/2014 colonoscopy Samara Rodarte internal hemorrhoids, otherwise WNL COLONOSCOPY FLX DX W/COLLJ SPEC WHEN PFRMD 09/01/[address] ABDOMEN AND PELVIS W/CONT 01/24/2014 localized yan hepatic unclear etiology, inflammatory vs metastatic disease; EGD 09/23/2014 Dr. Zoe Diana Normal esophagus, z-line, stomach and duodenum ESOPHAGOGASTRODUODENOSCOPY TRANSORAL DIAGNOSTIC 09/01/2020 EYE SURGERY HX INCISE FINGER TENDON SHEATH Right 12/26/2016 Right ring trigger finger release JOINT REPLACEMENT HX LAP UMBILICAL HERNIA REPAIR 02/24/2014 Umbilical hernia repair REMOVE CATARACT, INSERT LENS,EX Right REMV CATARACT EXTRACAP,INSERT LENS Right 03/31/2003 REMV CATARACT EXTRACAP,INSERT LENS Left 02/17/2003 REVJ TOT HIP ARTHRP [facility] W/WO AGRFT/ALGRFT Right 05/30/2011 ROTATOR CUFF REPAIR Right 2013 R rotator cuff repair TONSILLECTOMY HX TONSILLECTOMY PRIMARY/SECONDARY Tonsillectomy TOTAL HIP JOINT REPLACEMENT Left 10/03/2014 ALLERGIES Adhesive Tape (Rosins), Bactrim [Sulfamethoxazole-Trimethoprim], Macrobid [Nitrofurantoin Monohyd/M-Cryst], and Gmcmzwx-Evs-Exh Reductase Inhibitors MEDICATIONS Current Outpatient Medications Medication Sig cyanocobalamin (VITAMIN B-12) 1,000 mcg tab Take 1,000 mcg by mouth once daily. acetaminophen (TYLENOL EXTRA STRENGTH) 500 mg tablet Take 2 tablets by mouth two times a day as needed for pain. lisinopril (ZESTRIL) 30 mg tablet Take 1 tablet by mouth once daily. TURMERIC ORAL Take by mouth. CAPSICUM, CAYENNE, ORAL Take by mouth. ascorbic acid/bioflavonoids (JENNIE C ORAL) Take by mouth. FLAXSEED OIL ORAL Take by mouth. GARLIC ORAL Take by mouth. Magnesium 250 mg tab Take 500 mg by mouth once daily. propylene glycol/peg 400 (SYSTANE ULTRA OPHTHALMIC) Use in eyes. Zinc 50 mg tab Take by mouth once daily. cranberry fruit extract (CRANBERRY ORAL) Take 650 mg by mouth once daily. LACTOBACILLUS ACIDOPHILUS (PROBIOTIC ACIDOPHILUS ORAL) Take by mouth. cholecalciferol (VITAMIN D3) 5,000 unit tab Take 5,000 Units by mouth once daily. multivitamin ORAL tablet Take 1 tablet by mouth once daily. estradiol (ESTRACE) 0.01 % (0.1 mg/gram) vaginal cream Apply pea-sized amount to perineum and 1 applicator vaginally Mon, Wed, Fri for atrophic vaginitis. No current facility-administered medications for this visit. FAMILY HISTORY Problem Relation Age of Onset Cancer Mother Hypertension Mother other (CVA) Mother age 86 Heart Father other (CVA) Father age 81 Ischemic Heart Disease Brother age 76 other (CVA) Brother other (ADMISSIONS COUNSELOR shunt) Brother Hypertension Sister Diabetes Sister age 66 (sepsis) Social History Tobacco Use Smoking status: Never Smokeless tobacco: Never Vaping Use Vaping status: Never Used Substance Use Topics Alcohol use: No Drug use: No REVIEW OF SYSTEMS GENERAL: No weight loss, + malaise d/t not sleeping because foot is hurting, no fevers/chills HEENT: Negative for frequent or significant headaches, Poor hearing but no changes vision. NECK: Negative for lumps, goiter, pain and significant neck swelling- neck often hurts and takes acetaminophen for it RESPIRATORY: Negative for cough, hemoptysis, wheezing, dyspnea or shortness of breath CARDIOVASCULAR: Negative for chest pain, Some leg swelling, orthopnea, or palpitations GI: No nausea, vomiting, or diarrhea/constipation. No hematochezia/melena. No heartburn or reflux symptoms. : No history of dysuria (more content not included)...[facility]01-13-2025 History of Present illness Narrative* Tasha Deutsch APRN.[facility] - 04/26/2024 10:21 AM EST This is a 84 year old female who presents today with: Patient presents with: 6 Month Exam HISTORY OF PRESENT ILLNESS: Behzad Hay is a 84 year old female. Patient presents with: 6 Month Exam Sore on left lateral foot hurting- sore that is healed but a prominent bone PAST MEDICAL HISTORY: PAST MEDICAL HISTORY Diagnosis Date Abnormal CT of the abdomen 01/24/2014 localized perihepatic fluid indeterminate, 4mm density too small for ID, fusiforma sortic ectasia Anemia Arthritis Cerebral degeneration (HCC) Collagenous colitis Degenerative lumbar disc Dyslipidemia GERD (gastroesophageal reflux disease) H/O colonoscopy 09/23/2014 small internal hemorrhoids otherwise WNL. No further surveillance recommended Hiatal hernia History of esophagogastroduodenoscopy (EGD) 09/23/2014 [facility]: All normal HTN (hypertension) Hyperlipidemia, mixed Osteoarthritis Osteopenia PUD (peptic ulcer disease) 2014 Vitamin D deficiency PAST SURGICAL HISTORY Procedure Laterality Date BUNIONECTOMY, LAPIDUS-TYPE Left 03/30/2007 Dr. Devin DE DIOS, LAPIDUS-TYPE Right 03/30/2008 Dr. Beltran CATARACT EXTRACTION W/ INTRAOCULAR LENS IMPLANT HX Left 03/31/2003 Dr. Sosa COLONOSCOPY 09/23/[address] Addy Enriquez, Samara internal hemorrhoids, otherwise WNL COLONOSCOPY FLX DX W/COLLJ SPEC WHEN PFRMD 09/01/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 Zoe Diana Normal esophagus, z-line, stomach and duodenum ESOPHAGOGASTRODUODENOSCOPY TRANSORAL DIAGNOSTIC 09/01/2020 EYE SURGERY HX INCISE FINGER TENDON SHEATH Right 12/26/2016 Right ring trigger finger release JOINT REPLACEMENT HX LAP UMBILICAL HERNIA REPAIR 02/24/2014 Umbilical hernia repair REMOVE CATARACT, INSERT LENS,EX Right REMV CATARACT EXTRACAP,INSERT LENS Right 03/31/2003 REMV CATARACT EXTRACAP,INSERT LENS Left 02/17/2003 REVJ TOT HIP ARTHRP BTH W/WO AGRFT/ALGRFT Right 05/30/2011 ROTATOR CUFF REPAIR Right 2013 R rotator cuff repair TONSILLECTOMY HX TONSILLECTOMY PRIMARY/SECONDARY <AGE 10 Tonsillectomy TOTAL HIP JOINT REPLACEMENT Left 10/03/2014 ALLERGIES Adhesive Tape (Rosins), Bactrim [Sulfamethoxazole-Trimethoprim], Macrobid [NitrofurantoinMonohyd/M-Cryst], and Kgybipi-Met-Tly Reductase Inhibitors MEDICATIONS Current Outpatient Medications Medication Sig cyanocobalamin (VITAMIN B-12) 1,000 mcg tab Take 1,000 mcg by mouth once daily. acetaminophen (TYLENOL EXTRA STRENGTH) 500 mg tablet Take 2 tablets by mouth two times a day as needed for pain. lisinopril (ZESTRIL) 30 mg tablet Take 1 tablet by mouth once daily. TURMERIC ORAL Take by mouth. CAPSICUM, CAYENNE, ORAL Take by mouth. ascorbic acid/bioflavonoids (JENNIE C ORAL) Take by mouth. FLAXSEED OIL ORAL Take by mouth. GARLIC ORAL Take by mouth. Magnesium 250 mg tab Take 500 mg by mouth once daily. propylene glycol/peg 400 (SYSTANE ULTRA OPHTHALMIC) Use in eyes. Zinc 50 mg tab Take by mouth once daily. cranberry fruit extract (CRANBERRY ORAL) Take 650 mg by mouth once daily. LACTOBACILLUS ACIDOPHILUS (PROBIOTIC ACIDOPHILUS ORAL) Take by mouth. cholecalciferol (VITAMIN D3) 5,000 unit tab Take 5,000 Units by mouth once daily. multivitamin ORAL tablet Take 1 tablet by mouth once daily. estradiol (ESTRACE) 0.01 % (0.1 mg/gram) vaginal cream Apply pea-sized amount to perineum and 1 applicator vaginally Mon, Wed, Fri for atrophic vaginitis. No current facility-administered medications for this visit. FAMILY HISTORY Problem Relation Age of Onset Cancer Mother Hypertension Mother other (CVA) Mother age 86 Heart Father other (CVA) Father age 81 Ischemic Heart Disease Brother age 76 other (CVA) Brother other (ADMISSIONS COUNSELOR shunt) Brother Hypertension Sister Diabetes Sister age 66 (sepsis) Social History Tobacco Use Smoking status: Never Smokeless tobacco: Never Vaping Use Vaping status: Never Used Substance Use Topics Alcohol use: No Drug use: No REVIEW OF SYSTEMS GENERAL: No weight loss, + malaise d/t not sleeping because foot is hurting, no fevers/chills HEENT: Negative for frequent or significant headaches, Poor hearing but no changes vision. NECK: Negative for lumps, goiter, pain and significant neck swelling- neck often hurts and takes acetaminophen for it RESPIRATORY: Negative for cough, hemoptysis, wheezing, dyspnea or shortness of breath CARDIOVASCULAR: Negative for chest pain, Some leg swelling, orthopnea, or palpitations GI: No nausea, vomiting, or diarrhea/constipation. No hematochezia/melena. No heartburn or reflux symptoms. : No history of dysuria, no frequency, some incontinence for last year MUSCULOSKELETAL: Negative for joint pain or swelling. Neck & left lateral foot pain SKIN: Negative for lesions, right lower leg rash and itching- bruising from scratching ENDOCRINE: Negative for cold or heat intolerance, polyuria, polydipsia and goiter NEURO: No history of headaches, syncope, paralysis, seizures or tremors MOOD: Negative for depression, anxiety, or suicidal ideation. Home BP reading well controlled 111-132/ 54-74 EXAM: BP 142/78 Pulse 62 Wt 54 kg (119 lb) SpO2 98% BMI 22.12 kg/m PHYSICAL EXAM: Physical Exam Vitals reviewed. Constitutional: Appearance: Normal appearance. HENT: Head: Normocephalic. Neck: Vascular: Carotid bruit present. Cardiovascular: Rate and Rhythm: Normal rate and regular rhythm. Pulses: Normal pulses. Heart sounds: Murmur heard. Comments: Soft RADHA @ sternal border and referred into carotids Pulmonary: Effort: Pulmonary effort is normal. Breath sounds: Normal breath sounds. Abdominal: General: Bowel sounds are normal. Palpations: Abdomen is soft. Tenderness: There is no abdominal tenderness. There is no guarding or rebound. Musculoskeletal: General: Normal range of motion. Comments: Walks w/ a cane Moves all ext. Age appropriately Skin: General: Skin is warm and dry. Comments: Left lateral foot with a 2 mm scab in center of red area size of a quarter. Prominent bone Neurological: Mental Status: She is alert and oriented to person, place, and time. Psychiatric: Mood and Affect: Mood normal. Behavior: Behavior normal. LABS: ASSESSMENT/PLAN: 1. Collagenous colitis - ICD9: 558.9, ICD10: K52.831 (primary diagnosis) Check CBC 2. Screening for depression - ICD9: V79.0, ICD10: Z13.31 Stable - DEPRESSION SCREENING 3. Encounter for screening examination for other mental health and behavioral disorders - ICD9: V79.8, ICD10: Z13.39 Stable - ANXIETY SCREENING 4. Primary hypertension - ICD9: 401.9, ICD10: I10 - Home blood pressure readings controlled - Recommend home blood pressure monitoring, to bring results to next visit - Encouraged sodium restriction, DASH or Mediterranean diet - Recommend regular aerobic exercise - COMPREHENSIVE METABOLIC PANEL - MAGNESIUM 5. Paroxysmal atrial fibrillation (HCC) - ICD9: 427.31, ICD10: I48.0 Regular rhythm today - COMPLETE BLOOD COUNT AND DIFFERENTIAL 6. DDD (degenerative disc disease), cervical - ICD9: 722.4, ICD10: M50.30 ongoing - COMPLETE BLOOD COUNT AND DIFFERENTIAL 7. Chronic renal insufficiency, stage 3 (moderate) (HCC) - ICD9: 585.3, ICD10: N18.30 - eGFR: 71 Due for labs - Counseled on avoiding NSAIDs, adequate hydration - COMPREHENSIVE METABOLIC PANEL - MAGNESIUM 8. Vitamin D deficiency - ICD9: 268.9, ICD10: E55.9 Check labs - VITAMIN D 25 HYDROXY 9. Other iron deficiency anemia - ICD9: 280.8, ICD10: D50.8 Check labs - COMPLETE BLOOD COUNT AND DIFFERENTIAL - VITAMIN B12 - IRON AND TIBC - FERRITIN 10. Screening for diabetes mellitus - ICD9: V77.1, ICD10: Z13.1 Check labs - HEMOGLOBIN A1C 11. Screening for lipid disorders - ICD9: V77.91, ICD10: Z13.220 Check labs - LIPID PANEL, NONFASTING 12. Pressure injury of left foot, stage 1 - ICD9: 707.09, 707.21, ICD10: L89.891 Duoderm applied 13. Stress incontinence - ICD9: [id number], ICD10: N39.3 Urgency - URINALYSIS, REFLEX MICROSCOPIC - SOLIFENACIN 5 MG TABLET Discussed treatment plan and patient voices understanding. Patient's questions answered appropriately. Medications and potential side effects were discussed and patient voices understanding. Return to the office as scheduled or as needed for worsening/no improvement. Tasha Deutsch APRN.NICO documented in this encounterK[facility]12-26-2024 Telephone encounter Note * Telephone Encounter - Mara Hatch MA - 04/08/2024 1:44 PM EST Pt notified and voiced understanding. Mara Hatch MA [facility]12-26-2024 Miscellaneous Notes* Telephone Encounter - Mara Hatch MA - 04/08/2024 1:44 PM EST Pt notified and voiced understanding. Mara Hatch MA * Telephone Encounter - Mara Hatch MA - 04/08/2024 1:43 PM EST ----- Message from Tasha Deutsch sent at 04/08/2024 9:12 AM EST ----- Your urine cultured E. coli. You did have a urinary tract infection. However, the antibiotic that Iput you on for Sinusitis will be effective for this urinary tract bacteria. documented in this encounterK[facility]12-26-2024 Telephone encounter Note * Telephone Encounter - Mara Hatch MA - 04/08/2024 1:43 PM EST ----- Message from Tasha Deutsch sent at 04/08/2024 9:12 AM EST ----- Your urine cultured E. coli. You did have a urinary tract infection. However, the antibiotic that Iput you on for Sinusitis will be effective for this urinary tract bacteria. [facility]12-24-2024 Telephone encounter Note* Telephone Encounter - Winsome Butler MA - 04/06/2024 8:17 AM EST Patient notified that culture is in process and she will be notified of Friday of results. Winsome Butler MA April 06, 2024 8:18 AM [facility]12-24-2024 Miscellaneous Notes* Telephone Encounter - Winsome Butler MA - 04/06/2024 8:17 AM EST Patient notified that culture is in process and she will be notified of Friday of results. Winsome Butler MA April 06, 2024 8:18 AM * Telephone Encounter - Winsome Butler MA - 04/06/2024 8:14 AM EST ----- Message from Tasha Deutsch sent at 04/06/2024 8:01 AM EST ----- It looks like you may have a urinary tract infection. I did order a reflex culture if needed. We will watch for that on Friday. documented in this encounterK[facility]12-24-2024 Telephone encounter Note * Telephone Encounter - Winsome Butler MA - 04/06/2024 8:14 AM EST ----- Message from Tasha Deutsch sent at 04/06/2024 8:01 AM EST ----- It looks like you may have a urinary tract infection. I did order a reflex culture if needed. We will watch for that on Friday. [facility]12-23-2024 Instructions* Patient Instructions* Tasha Deutsch APRN.CNP - 04/05/2024 3:44 PM EST - AMOXICILLIN 875 MG-POTASSIUM CLAVULANATE 125 MG TABLET - Saline nasal spray frequently while on antibiotic - Send urinalysis with reflex documented in this encounterKettering Health [facility]12-23-2024 NoteHNO ID: [id number] Author: TASHA DEUTSCH APRN.CNP Service: ? Author Type: Clinical Nurse Specialist Type: Progress Notes Filed: 04/05/2024 15:44 Note Text: This is a 84 year old female who presents today with: Patient presents with: Acute Visit: Head congestion 2-3 weeks HISTORY OF PRESENT ILLNESS: Behzad Hay is a 84 year old female. Patient presents with: Acute Visit: Head congestion 2-3 weeks Head congestion and sinus pressure. Blows nose and yellow drainage. Took cold pills. Very tired today No fever or chills. No headache. Feels very tired. No body aches. Having incontinence- losing control- urgency PAST MEDICAL HISTORY: PAST MEDICAL HISTORY Diagnosis Date Abnormal CT of the abdomen 01/24/2014 localized perihepatic fluid indeterminate, 4mm density too small for ID, fusiforma sortic ectasia Anemia Arthritis Cerebral degeneration (HCC) Collagenous colitis Degenerative lumbar disc Dyslipidemia GERD (gastroesophageal reflux disease) H/O colonoscopy 09/23/2014 small internal hemorrhoids otherwise WNL. No further surveillance recommended Hiatal hernia History of esophagogastroduodenoscopy (EGD) 09/23/2014 [facility]: All normal HTN (hypertension) Hyperlipidemia, mixed Osteoarthritis Osteopenia PUD (peptic ulcer disease) 2014 Vitamin D deficiency PAST SURGICAL HISTORY Procedure Laterality Date BUNIONECTOMY, LAPIDUS-TYPE Left 03/30/2007 Dr. Devin CARLIONECTOMY, LAPIDUS-TYPE Right 03/30/2008 Dr. Beltran CATARACT EXTRACTION W/ INTRAOCULAR LENS IMPLANT HX Left 03/31/2003 Dr. Sosa COLONOSCOPY 09/23/[address] Addy Enriquez, Samara internal hemorrhoids, otherwise WNL COLONOSCOPY FLX DX W/COLLJ SPEC WHEN PFRMD 09/01/[address] ABDOMEN AND PELVIS W/CONT 01/24/2014 localized yan hepatic unclear etiology, inflammatory vs metastatic disease; EGD 09/23/2014 Dr. Zoe Diana Normal esophagus, z-line, stomach and duodenum ESOPHAGOGASTRODUODENOSCOPY TRANSORAL DIAGNOSTIC 09/01/2020 EYE SURGERY HX INCISE FINGER TENDON SHEATH Right 12/26/2016 Right ring trigger finger release JOINT REPLACEMENT HX LAP UMBILICAL HERNIA REPAIR 02/24/2014 Umbilical hernia repair REMOVE CATARACT, INSERT LENS,EX Right REMV CATARACT EXTRACAP,INSERT LENS Right 03/31/2003 REMV CATARACT EXTRACAP,INSERT LENS Left 02/17/2003 REVJ TOT HIP ARTHRP BTH W/WO AGRFT/ALGRFT Right 05/30/2011 ROTATOR CUFF REPAIR Right 2013 R rotator cuff repair TONSILLECTOMY HX TONSILLECTOMY PRIMARY/SECONDARY Tonsillectomy TOTAL HIP JOINT REPLACEMENT Left 10/03/2014 ALLERGIES Adhesive Tape (Rosins), Bactrim [Sulfamethoxazole-Trimethoprim], Macrobid [Nitrofurantoin Monohyd/M-Cryst], and Fzqwgzk-Ncj-Tes Reductase Inhibitors MEDICATIONS Current Outpatient Medications Medication Sig cyanocobalamin (VITAMIN B-12) 1,000 mcg tab Take 1,000 mcg by mouth once daily. acetaminophen (TYLENOL EXTRA STRENGTH) 500 mg tablet Take 2 tablets by mouth two times a day as needed for pain. lisinopril (ZESTRIL) 30 mg tablet Take 1 tablet by mouth once daily. TURMERIC ORAL Take by mouth. CAPSICUM, CAYENNE, ORAL Take by mouth. ascorbic acid/bioflavonoids (JENNIE C ORAL) Take by mouth. FLAXSEED OIL ORAL Take by mouth. GARLIC ORAL Take by mouth. Magnesium 250 mg tab Take 500 mg by mouth once daily. propylene glycol/peg 400 (SYSTANE ULTRA OPHTHALMIC) Use in eyes. Zinc 50 mg tab Take by mouth once daily. cranberry fruit extract (CRANBERRY ORAL) Take 650 mg by mouth once daily. LACTOBACILLUS ACIDOPHILUS (PROBIOTIC ACIDOPHILUS ORAL) Take by mouth. cholecalciferol (VITAMIN D3) 5,000 unit tab Take 5,000 Units by mouth once daily. multivitamin ORAL tablet Take 1 tablet by mouth once daily. estradiol (ESTRACE) 0.01 % (0.1 mg/gram) vaginal cream Apply pea-sized amount to perineum and 1 applicator vaginally Mon, Wed, Fri for atrophic vaginitis. No current facility-administered medications for this visit. FAMILY HISTORY Problem Relation Age of Onset Cancer Mother Hypertension Mother other (CVA) Mother age 86 Heart Father other (CVA) Father age 81 Ischemic Heart Disease Brother age 76 other (CVA) Brother other (ADMISSIONS COUNSELOR shunt) Brother Hypertension Sister Diabetes Sister age 66 (sepsis) Social History Tobacco Use Smoking status: Never Smokeless tobacco: Never Vaping Use Vaping status: Never Used Substance Use Topics Alcohol use: No Drug use: No EXAM: BP 162/84 Pulse 75 Temp 36.2 ?C (97.2 ?F) Resp 16 Wt 54 kg (119 lb) SpO2 96% BMI 22.12 kg/m? PHYSICAL EXAM: Physical Exam Vitals reviewed. Constitutional: Appearance: Normal appearance. HENT: Head: Normocephalic. Ears: Comments: Can't see in ear canals. Very narrow Nose: Congestion and rhinorrhea present. Comments: Nasal turbinates red, inflamed, excoriated. Purulent matter Cardiovascular: Rate an (more content not included)...[facility]12-23-2024 History of Present illness Narrative* Tasha Deutsch APRN.AVIATION ELECTRONIC WARFARE OPERATOR - 04/05/2024 3:35 PM EST This is a 84 year old female who presents today with: Patient presents with: Acute Visit: Head congestion 2-3 weeks HISTORY OF PRESENT ILLNESS: Behzad Hay is a 84 year old female. Patient presents with: Acute Visit: Head congestion 2-3 weeks Head congestion and sinus pressure. Blows nose and yellow drainage. Took cold pills. Very tired today No fever or chills. No headache. Feels very tired. No body aches. Having incontinence- losing control- urgency PAST MEDICAL HISTORY: PAST MEDICAL HISTORY Diagnosis Date Abnormal CT of the abdomen 01/24/2014 localized perihepatic fluid indeterminate, 4mm density too small for ID, fusiforma sortic ectasia Anemia Arthritis Cerebral degeneration (HCC) Collagenous colitis Degenerative lumbar disc Dyslipidemia GERD (gastroesophageal reflux disease) H/O colonoscopy 09/23/2014 small internal hemorrhoids otherwise WNL. No further surveillance recommended Hiatal hernia History of esophagogastroduodenoscopy (EGD) 09/23/2014 [facility]: All normal HTN (hypertension) Hyperlipidemia, mixed Osteoarthritis Osteopenia PUD (peptic ulcer disease) 2013 Vitamin D deficiency PAST SURGICAL HISTORY Procedure Laterality Date BUNIONECTOMY, LAPIDUS-TYPE Left 03/30/2007 Dr. Devin LOPEZCTOMY, LAPIDUS-TYPE Right 03/30/2008 Dr. Beltran CATARACT EXTRACTION W/ INTRAOCULAR LENS IMPLANT HX Left 03/31/2003 Dr. Sosa COLONOSCOPY 09/23/2014 colonoscopy Samara Rodarte internal hemorrhoids, otherwise WNL COLONOSCOPY FLX DX W/COLLJ SPEC WHEN PFRMD 09/01/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 Zoe Diana Normal esophagus, z-line, stomach and duodenum ESOPHAGOGASTRODUODENOSCOPY TRANSORAL DIAGNOSTIC 09/01/2020 EYE SURGERY HX INCISE FINGER TENDON SHEATH Right 12/26/2016 Right ring trigger finger release JOINT REPLACEMENT HX LAP UMBILICAL HERNIA REPAIR 02/24/2014 Umbilical hernia repair REMOVE CATARACT, INSERT LENS,EX Right REMV CATARACT EXTRACAP,INSERT LENS Right 03/31/2003 REMV CATARACT EXTRACAP,INSERT LENS Left 02/17/2003 REVJ TOT HIP ARTHRP BTH W/WO AGRFT/ALGRFT Right 05/30/2011 ROTATOR CUFF REPAIR Right 2013 R rotator cuff repair TONSILLECTOMY HX TONSILLECTOMY PRIMARY/SECONDARY <AGE 10 Tonsillectomy TOTAL HIP JOINT REPLACEMENT Left 10/03/2014 ALLERGIES Adhesive Tape (Rosins), Bactrim [Sulfamethoxazole-Trimethoprim], Macrobid [NitrofurantoinMonohyd/M-Cryst], and Tfnyqnl-Kxh-Tyz Reductase Inhibitors MEDICATIONS Current Outpatient Medications Medication Sig cyanocobalamin (VITAMIN B-12) 1,000 mcg tab Take 1,000 mcg by mouth once daily. acetaminophen (TYLENOL EXTRA STRENGTH) 500 mg tablet Take 2 tablets by mouth two times a day as needed for pain. lisinopril (ZESTRIL) 30 mg tablet Take 1 tablet by mouth once daily. TURMERIC ORAL Take by mouth. CAPSICUM, CAYENNE, ORAL Take by mouth. ascorbic acid/bioflavonoids (JENNIE C ORAL) Take by mouth. FLAXSEED OIL ORAL Take by mouth. GARLIC ORAL Take by mouth. Magnesium 250 mg tab Take 500 mg by mouth once daily. propylene glycol/peg 400 (SYSTANE ULTRA OPHTHALMIC) Use in eyes. Zinc 50 mg tab Take by mouth once daily. cranberry fruit extract (CRANBERRY ORAL) Take 650 mg by mouth once daily. LACTOBACILLUS ACIDOPHILUS (PROBIOTIC ACIDOPHILUS ORAL) Take by mouth. cholecalciferol (VITAMIN D3) 5,000 unit tab Take 5,000 Units by mouth once daily. multivitamin ORAL tablet Take 1 tablet by mouth once daily. estradiol (ESTRACE) 0.01 % (0.1 mg/gram) vaginal cream Apply pea-sized amount to perineum and 1 applicator vaginally Mon, Wed, Fri for atrophic vaginitis. No current facility-administered medications for this visit. FAMILY HISTORY Problem Relation Age of Onset Cancer Mother Hypertension Mother other (CVA) Mother age 86 Heart Father other (CVA) Father age 81 Ischemic Heart Disease Brother age 76 other (CVA) Brother other (ADMISSIONS COUNSELOR shunt) Brother Hypertension Sister Diabetes Sister age 66 (sepsis) Social History Tobacco Use Smoking status: Never Smokeless tobacco: Never Vaping Use Vaping status: Never Used Substance Use Topics Alcohol use: No Drug use: No EXAM: BP 162/84 Pulse 75 Temp 36.2 C (97.2 F) Resp 16 Wt 54 kg (119 lb) SpO2 96% BMI 22.12 kg/m PHYSICAL EXAM: Physical Exam Vitals reviewed. Constitutional: Appearance: Normal appearance. HENT: Head: Normocephalic. Ears: Comments: Can't see in ear canals. Very narrow Nose: Congestion and rhinorrhea present. Comments: Nasal turbinates red, inflamed, excoriated. Purulent matter Cardiovascular: Rate and Rhythm: Normal rate and regular rhythm. Pulses: Normal pulses. Heart sounds: Normal heart sounds. Pulmonary: Effort: Pulmonary effort is normal. Breath sounds: Normal breath sounds. Musculoskeletal: General: Normal range of motion. Right lower leg: No edema. Left lower leg: No edema. Skin: General: Skin is warm and dry. Neurological: Mental Status: She is alert and oriented to person, place, and time. LABS: get urinalysis ASSESSMENT/PLAN: 1. Acute non-recurrent maxillary sinusitis - ICD9: 461.0, ICD10: J01.00 (primary diagnosis) - Will begin treatment with Augmentin 875 mg PO BID for 10 days - AMOXICILLIN 875 MG-POTASSIUM CLAVULANATE 125 MG TABLET - Saline nasal spray frequently while on antibiotic 2. Urinary urgency - ICD9: 788.63, ICD10: R39.15 May need uro-poultice machine operator consult - URINALYSIS WITH MICROSCOPIC, REFLEX CULTURE Discussed treatment plan and patient voices understanding. Patient's questions answered appropriately. Medications and potential side effects were discussed and patient voices understanding. Return to the office as scheduled or as needed for worsening/no improvement. Tasha Deutsch APRN.CNP documented [facility]24 Instructions* Patient Instructions* Tasha Deutsch APRN.CNP - 12/05/2023 11:10 AM EDT 1) Keep appt. In April as scheduled 2) Continue walking as often as possible 3) Continue acetaminophen rather than ibuprofen (Advil) 4) Follow up in April as scheduled 04/26/24 documented in this encounterK[facility]24 History of Present illness Narrative* Tasha Deutsch APRN.CNP - 12/05/2023 10:59 AM EDT This is a 83 year old female who presents today with: Patient presents with: Follow Up: Review test results HISTORY OF PRESENT ILLNESS: Behzad Hay is a 83 year old female. Patient presents with: Follow Up: Review test results Pt. Had NAEEM screening that indicates moderate blockage in left leg and borderline in right leg. Walks every day, goes to exercise twice a week. Never gets claudication Sx with walking. Never smoked. Uses a cane to ambulate. Friend told her to switch acetaminophen to ibuprofen for OA. Cholesterol- reviewed labs PAST MEDICAL HISTORY: PAST MEDICAL HISTORY 01/24/2014: Abnormal CT of the abdomen Comment: localized perihepatic fluid indeterminate, 4mm density too small for ID, fusiforma sortic ectasia No date: Anemia No date: Arthritis No date: Cerebral degeneration (HCC) No date: Collagenous colitis No date: Degenerative lumbar disc No date: Dyslipidemia No date: GERD (gastroesophageal reflux disease) 09/23/2014: H/O colonoscopy Comment: small internal hemorrhoids otherwise WNL. No further surveillance recommended No date: Hiatal hernia 09/23/2014: History of esophagogastroduodenoscopy (EGD) Comment: [facility]: All normal No date: HTN (hypertension) No date: Hyperlipidemia, mixed No date: Osteoarthritis No date: Osteopenia 2014: PUD (peptic ulcer disease) No date: Vitamin D deficiency PAST SURGICAL HISTORY 03/30/2007: BUNIONECTOMY, LAPIDUS-TYPE; Left Comment: Dr. Beltran 03/30/2008: BUNIONECTOMY, LAPIDUS-TYPE; Right Comment: Dr. Beltran 03/31/2003: CATARACT EXTRACTION W/ INTRAOCULAR LENS IMPLANT HX; Left Comment: Dr. Sosa 09/23/2014: COLONOSCOPY Comment: colonoscopy Samara Rodarte internal hemorrhoids, otherwise WNL 09/01/2020: COLONOSCOPY FLX DX W/COLLJ SPEC WHEN PFRMD Comment: Dr. Whitehead 01/24/2014: CT ABDOMEN & PELVIS W/CONT Comment: localized yan hepatic unclear etiology, inflammatory vs metastatic disease; 09/23/2014: EGD Comment: Dr. Zoe Diana Normal esophagus, z-line, stomach and duodenum 09/01/2020: ESOPHAGOGASTRODUODENOSCOPY TRANSORAL DIAGNOSTIC Comment: No date: EYE SURGERY HX 12/26/2016: INCISE FINGER TENDON SHEATH; Right Comment: Right ring trigger finger release No date: JOINT REPLACEMENT HX 02/24/2014: LAP UMBILICAL HERNIA REPAIR Comment: Umbilical hernia repair No date: REMOVE CATARACT, INSERT LENS,EX; Right 03/31/2003: REMV CATARACT EXTRACAP,INSERT LENS; Right 02/17/2003: REMV CATARACT EXTRACAP,INSERT LENS; Left No date: REVJ TOT HIP ARTHRP BTH W/WO AGRFT/ALGRFT; Right Comment: 05/30/2011 2013: ROTATOR CUFF REPAIR; Right Comment: R rotator cuff repair No date: TONSILLECTOMY HX No date: TONSILLECTOMY PRIMARY/SECONDARY <AGE 12 Comment: Tonsillectomy 10/03/2014: TOTAL HIP JOINT REPLACEMENT; Left ALLERGIES Adhesive Tape (Rosins), Bactrim [Sulfamethoxazole-Trimethoprim], Macrobid [NitrofurantoinMonohyd/M-Cryst], and Pootebd-Tju-Sgj Reductase Inhibitors MEDICATIONS Current Outpatient Medications Medication Sig cyanocobalamin (VITAMIN B-12) 1,000 mcg tab Take 1,000 mcg by mouth once daily. estradiol (ESTRACE) 0.01 % (0.1 mg/gram) vaginal cream Apply pea-sized amount to perineum and 1 applicator vaginally Mon, Wed, Fri for atrophic vaginitis. acetaminophen (TYLENOL EXTRA STRENGTH) 500 mg tablet Take 2 tablets by mouth two times a day as needed for pain. lisinopril (ZESTRIL) 30 mg tablet Take 1 tablet by mouth once daily. TURMERIC ORAL Take by mouth. CAPSICUM, CAYENNE, ORAL Take by mouth. ascorbic acid/bioflavonoids (JENNIE C ORAL) Take by mouth. FLAXSEED OIL ORAL Take by mouth. GARLIC ORAL Take by mouth. Magnesium 250 mg tab Take 500 mg by mouth once daily. propylene glycol/peg 400 (SYSTANE ULTRA OPHTHALMIC) Use in eyes. Zinc 50 mg tab Take by mouth once daily. cranberry fruit extract (CRANBERRY ORAL) Take 650 mg by mouth once daily. LACTOBACILLUS ACIDOPHILUS (PROBIOTIC ACIDOPHILUS ORAL) Take by mouth. cholecalciferol (VITAMIN D3) 5,000 unit tab Take 5,000 Units by mouth once daily. multivitamin ORAL tablet Take 1 tablet by mouth once daily. No current facility-administered medications for this visit. FAMILY HISTORY Problem Relation Age of Onset Cancer Mother Hypertension Mother other (CVA) Mother age 86 Heart Father other (CVA) Father age 81 Ischemic Heart Disease Brother age 76 other (CVA) Brother other (ADMISSIONS COUNSELOR shunt) Brother Hypertension Sister Diabetes Sister age 66 (sepsis) Social History Tobacco Use Smoking status: Never Smokeless tobacco: Never Vaping Use Vaping status: Never Used Substance Use Topics Alcohol use: No Drug use: No EXAM: BP 150/88 Pulse 81 Wt 51.7 kg (114 lb) SpO2 98% BMI 21.19 kg/m PHYSICAL EXAM: Physical Exam Vitals reviewed. Constitutional: Appearance: Normal appearance. Musculoskeletal: General: No swelling, tenderness, deformity or signs of injury. Right lower leg: No edema. Left lower leg: No edema. Comments: Both feet warm and pink- rapid capillary refill. D.P. & P.T. ceci are 2+ pulses. Neurological: Mental Status: She is alert. LABS: reviewed last cholesterol profile ASSESSMENT/PLAN: 1. PAD (peripheral artery disease) (HCC) - ICD9: 443.9, ICD10: I73.9 Slight worsening on left leg - LDL cholesterol increased- family preparing meals for her - HDL high - Walks regularly - Discussed risk and what to watch for, emergency - Avoid NSAIDS, prefer acetaminophen Discussed treatment plan and patient voices understanding. Patient's questions answered appropriately. Medications and potential side effects were discussed and patient voices understanding. Return to the office as scheduled or as needed for worsening/no improvement. Tasha Deutsch APRN.CNP documented [facility] this [facility]-2024 Instructions* Patient Instructions* Tasha Deutsch APRN.CNP - 10/27/2023 10:08 AM EDT 1) Continue current medications 2) Melatonin 3 mg at bedtime, may repeat in middle of night x 1 3) Follow up in 6 months documented in this encounterK[facility]-2024 History of Present illness Narrative* Tasha Deutsch APRN.CNP - 10/27/2023 9:54 AM EDT This is a 83 year old female who presents today with: Patient presents with: Follow Up: 6 month HISTORY OF PRESENT ILLNESS: Behzad Hay is a 83 year old female. Patient presents with: Follow Up: 6 month BP running 118-129/ 56-86 ( only 1 DBP 86 X 10) HTN: Patient is compliant with meds No Monitors bp at home: Yes. Denies side effects: No. Chest pain: No. Dyspnea: No. Edema: No. Palpitations: No. Syncope: No. Headache: No. Occasional Dizziness: No. REVIEW OF SYSTEMS GENERAL: No weight loss, + malaise (DOESN'T SLEEP WELL) no fevers/chills HEENT: Negative for frequent or significant headaches, No changes in hearing or vision- some hearing loss and sees hearing loss. NECK: Negative for lumps, goiter, pain and significant neck swelling RESPIRATORY: Negative for cough, hemoptysis, wheezing, dyspnea or shortness of breath CARDIOVASCULAR: Negative for chest pain, leg swelling, orthopnea, or palpitations GI: No nausea, vomiting, or diarrhea/constipation. No hematochezia/melena. No heartburn or reflux symptoms. : No history of dysuria, frequency or incontinence MUSCULOSKELETAL: Occ for joint pain or swelling.- known arthritis SKIN: Negative for lesions, rash, and itching ENDOCRINE: Negative for cold or heat intolerance, polyuria, polydipsia and goiter NEURO: No history of headaches, syncope, paralysis, seizures or tremors MOOD: Negative for depression, anxiety, or suicidal ideation. PAST MEDICAL HISTORY: PAST MEDICAL HISTORY Diagnosis Date Abnormal CT of the abdomen 01/24/2014 localized perihepatic fluid indeterminate, 4mm density too small for ID, fusiforma sortic ectasia Anemia Arthritis Cerebral degeneration (HCC) Collagenous colitis Degenerative lumbar disc Dyslipidemia GERD (gastroesophageal reflux disease) H/O colonoscopy 09/23/2014 small internal hemorrhoids otherwise WNL. No further surveillance recommended Hiatal hernia History of esophagogastroduodenoscopy (EGD) 09/23/2014 [facility]: All normal HTN (hypertension) Hyperlipidemia, mixed Osteoarthritis Osteopenia PUD (peptic ulcer disease) 2014 Vitamin D deficiency PAST SURGICAL HISTORY Procedure Laterality Date BUNIONECTOMY, LAPIDUS-TYPE Left 03/30/2007 Dr. Devin DE DIOS, LAPIDUS-TYPE Right 03/30/2008 Dr. Beltran CATARACT EXTRACTION W/ INTRAOCULAR LENS IMPLANT HX Left 03/31/2003 Dr. Sosa COL[facility]OSCOPY [facility] [facility], [facility] WNL COLONOSCOPY FLX DX W/COLLJ SPEC WHEN PFRMD 09/01/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 Zoe Diana Normal esophagus, z-line, stomach and duodenum ESOPHAGOGASTRODUODENOSCOPY TRANSORAL DIAGNOSTIC 09/01/2020 EYE SURGERY HX INCISE FINGER TENDON SHEATH Right 12/26/2016 Right ring trigger finger release JOINT REPLACEMENT HX LAP UMBILICAL HERNIA REPAIR 02/24/2014 Umbilical hernia repair REMOVE CATARACT, INSERT LENS,EX Right REMV CATARACT EXTRACAP,INSERT LENS Right 03/31/2003 REMV CATARACT EXTRACAP,INSERT LENS Left 02/17/2003 REVJ TOT HIP ARTHRP BTH W/WO AGRFT/ALGRFT Right 05/30/2011 ROTATOR CUFF REPAIR Right 2013 R rotator cuff repair TONSILLECTOMY HX TONSILLECTOMY PRIMARY/SECONDARY <AGE 10 Tonsillectomy TOTAL HIP JOINT REPLACEMENT Left 10/03/2014 ALLERGIES Adhesive Tape (Rosins), Bactrim [Sulfamethoxazole-Trimethoprim], Macrobid [NitrofurantoinMonohyd/M-Cryst], and Hdleldb-Lpn-Ehb Reductase Inhibitors MEDICATIONS Current Outpatient Medications Medication Sig cyanocobalamin (VITAMIN B-12) 1,000 mcg tab Take 1,000 mcg by mouth once daily. estradiol (ESTRACE) 0.01 % (0.1 mg/gram) vaginal cream Apply pea-sized amount to perineum and 1 applicator vaginally Mon, Wed, Fri for atrophic vaginitis. acetaminophen (TYLENOL EXTRA STRENGTH) 500 mg tablet Take 2 tablets by mouth two times a day as needed for pain. lisinopril (ZESTRIL) 30 mg tablet Take 1 tablet by mouth once daily. TURMERIC ORAL Take by mouth. CAPSICUM, CAYENNE, ORAL Take by mouth. ascorbic acid/bioflavonoids (JENNIE C ORAL) Take by mouth. FLAXSEED OIL ORAL Take by mouth. GARLIC ORAL Take by mouth. Magnesium 250 mg tab Take 500 mg by mouth once daily. propylene glycol/peg 400 (SYSTANE ULTRA OPHTHALMIC) Use in eyes. Zinc 50 mg tab Take by mouth once daily. cranberry fruit extract (CRANBERRY ORAL) Take 650 mg by mouth once daily. LACTOBACILLUS ACIDOPHILUS (PROBIOTIC ACIDOPHILUS ORAL) Take by mouth. cholecalciferol (VITAMIN D3) 5,000 unit tab Take 5,000 Units by mouth once daily. multivitamin ORAL tablet Take 1 tablet by mouth once daily. metoprolol succinate ER (TOPROL XL) 25 mg 24 hr tablet Take 0.5 tablets by mouth once daily. (Patient not taking: Reported on 09/26/2023) Cyanocobalamin 2,500 mcg subl Dissolve 1 tablet under the tongue once daily. (Patient not taking: Reported on 10/27/2023) No current facility-administered medications for this visit. FAMILY HISTORY Problem Relation Age of Onset Cancer Mother Hypertension Mother other (CVA) Mother age 86 Heart Father other (CVA) Father age 81 Ischemic Heart Disease Brother age 76 other (CVA) Brother other (ADMISSIONS COUNSELOR shunt) Brother Hypertension Sister Diabetes Sister age 66 (sepsis) Social History Tobacco Use Smoking status: Never Smokeless tobacco: Never Vaping Use Vaping Use: Never used Substance Use Topics Alcohol use: No Drug use: No EXAM: BP 160/84 Pulse 70 Resp 18 Wt 52.6 kg (116 lb) SpO2 97% BMI 21.56 kg/m PHYSICAL EXAM: Physical Exam Vitals reviewed. Constitutional: Appearance: Normal appearance. HENT: Head: Normocephalic. Cardiovascular: Rate and Rhythm: Normal rate and regular rhythm. Heart sounds: Murmur heard. Comments: Soft RADHA @ sternal border Pulmonary: Effort: Pulmonary effort is normal. Breath sounds: Wheezing present. Comments: Slight insp. Wheeze ceci. bases Abdominal: General: Bowel sounds are normal. There is distension. Palpations: Abdomen is soft. Musculoskeletal: Cervical back: Neck supple. Comments: Walks with a cane but moves all ext. Skin: General: Skin is warm and dry. Neurological: Mental Status: She is alert. Psychiatric: Comments: Flat affect LABS: reviewed last labs ASSESSMENT/PLAN: 1. Paroxysmal atrial fibrillation (HCC) - ICD9: 427.31, ICD10: I48.0 (primary diagnosis) Stable - Not on anticoagulation 2. DDD (degenerative disc disease), cervical - ICD9: 722.4, ICD10: M50.30 - Ongoing but manageable 3. Primary hypertension - ICD9: 401.9, ICD10: I10 - Controlled - Recommend home blood pressure monitoring, to bring results to next visit - Encouraged sodium restriction, DASH or Mediterranean diet - Recommend regular aerobic exercise 4. Primary osteoarthritis of right hip - ICD9: 715.15, ICD10: M16.11 Ongoing - Manageable 5. Chronic renal insufficiency, stage 3 (moderate) (HCC) - ICD9: 585.3, ICD10: N18.30 - eGFR: 71 Stable - Counseled on avoiding NSAIDs, adequate hydration- uses Tylenol arthritis 6. Chronic insomnia - ICD9: 780.52, ICD10: F51.04 Will trial melatonin 3 mg at bedtime, may repeat once through the night if needed 7. Stress incontinence - ICD9: [id number], ICD10: N39.3 Wears pads Discussed treatment plan and patient voices understanding. Patient's questions answered appropriately. Medications and potential side effects were discussed and patient voices understanding. Return to the office as scheduled or as needed for worsening/no improvement. Tasha Deutsch APRN.AVIATION ELECTRONIC WARFARE OPERATOR documented in this encounter[facility]24 History of Present illness Narrative* Sudheer Olguin APRN.NICO - 09/26/2023 3:43 PM EDT Images from the original note were not included. Subjective HPI HPI Behzad Hay is a 83 year old female who presents today for CC of left great toe infection. This started 1 week ago. Has tried otc medication for relief. Symptoms are worsened by nothing. Denies injury. Has apt with global human resources director in october. .Patient presents with: Ingrown Toenail: L great toe redness, swelling, painful, was seeping blood this am x 1 week Has appt with Felicitas baker [id number] October 21 PAST MEDICAL HISTORY Diagnosis Date Abnormal CT of the abdomen 01/24/2014 localized perihepatic fluid indeterminate, 4mm density too small for ID, fusiforma sortic ectasia Anemia Arthritis Cerebral degeneration (HCC) Collagenous colitis Degenerative lumbar disc Dyslipidemia GERD (gastroesophageal reflux disease) H/O colonoscopy 09/23/2014 small internal hemorrhoids otherwise WNL. No further surveillance recommended Hiatal hernia History of esophagogastroduodenoscopy (EGD) 09/23/2014 [facility]: All normal HTN (hypertension) Hyperlipidemia, mixed Osteoarthritis Osteopenia PUD (peptic ulcer disease) 2013 Vitamin D deficiency PAST SURGICAL HISTORY Procedure Laterality Date BUNIONECTOMY, LAPIDUS-TYPE Left 03/30/2007 Dr. Devin CARLIONECTOMY, LAPIDUS-TYPE Right 03/30/2008 Dr. Beltran CATARACT EXTRACTION W/ INTRAOCULAR LENS IMPLANT HX Left 03/31/2003 Dr. Sosa COLONOSCOPY 09/23/2014 colonoscopy Samara Rodarte internal hemorrhoids, otherwise WNL COLONOSCOPY FLX DX W/COLLJ SPEC WHEN PFRMD 09/01/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 Zoe Diana Normal esophagus, z-line, stomach and duodenum ESOPHAGOGASTRODUODENOSCOPY TRANSORAL DIAGNOSTIC 09/01/2020 EYE SURGERY HX INCISE FINGER TENDON SHEATH Right 12/26/2016 Right ring trigger finger release JOINT REPLACEMENT HX LAP UMBILICAL HERNIA REPAIR 02/24/2014 Umbilical hernia repair REMOVE CATARACT, INSERT LENS,EX Right REMV CATARACT EXTRACAP,INSERT LENS Right 03/31/2003 REMV CATARACT EXTRACAP,INSERT LENS Left 02/17/2003 REVJ TOT HIP ARTHRP BTH W/WO AGRFT/ALGRFT Right 05/30/2011 ROTATOR CUFF REPAIR Right 2013 R rotator cuff repair TONSILLECTOMY HX TONSILLECTOMY PRIMARY/SECONDARY <AGE 12 Tonsillectomy TOTAL HIP JOINT REPLACEMENT Left 10/03/2014 ALLERGIES Adhesive Tape (Rosins), Bactrim [Sulfamethoxazole-Trimethoprim], Macrobid [NitrofurantoinMonohyd/M-Cryst], and Yxnrqtf-Qzf-Zjp Reductase Inhibitors MEDICATIONS estradiol (ESTRACE) 0.01 % (0.1 mg/gram) vaginal cream Apply pea-sized amount to perineum and 1 applicator vaginally Mon, Wed, Fri for atrophic vaginitis. acetaminophen (TYLENOL EXTRA STRENGTH) 500 mg tablet Take 2 tablets by mouth two times a day as needed for pain. lisinopril (ZESTRIL) 30 mg tablet Take 1 tablet by mouth once daily. TURMERIC ORAL Take by mouth. CAPSICUM, CAYENNE, ORAL Take by mouth. ascorbic acid/bioflavonoids (JENNIE C ORAL) Take by mouth. FLAXSEED OIL ORAL Take by mouth. GARLIC ORAL Take by mouth. Magnesium 250 mg tab Take 500 mg by mouth once daily. propylene glycol/peg 400 (SYSTANE ULTRA OPHTHALMIC) Use in eyes. Zinc 50 mg tab Take by mouth once daily. cranberry fruit extract (CRANBERRY ORAL) Take 650 mg by mouth once daily. LACTOBACILLUS ACIDOPHILUS (PROBIOTIC ACIDOPHILUS ORAL) Take by mouth. Cyanocobalamin 2,500 mcg subl Dissolve 1 tablet under the tongue once daily. cholecalciferol (VITAMIN D3) 5,000 unit tab Take 5,000 Units by mouth once daily. multivitamin ORAL tablet Take 1 tablet by mouth once daily. cephALEXin (KEFLEX) 500 mg capsule Take 1 capsule by mouth three times a day for 7 days. mupirocin (BACTROBAN) 2 % ointment Apply to affected area three times a day for 10 days. metoprolol succinate ER (TOPROL XL) 25 mg 24 hr tablet Take 0.5 tablets by mouth once daily. (Patient not taking: Reported on 09/26/2023) FAMILY HISTORY Problem Relation Age of Onset Cancer Mother Hypertension Mother other (CVA) Mother age 86 Heart Father other (CVA) Father age 81 Ischemic Heart Disease Brother age 76 other (CVA) Brother other (ADMISSIONS COUNSELOR shunt) Brother Hypertension Sister Diabetes Sister age 66 (sepsis) Social History Tobacco Use Smoking status: Never Smokeless tobacco: Never Vaping Use Vaping Use: Never used Substance Use Topics Alcohol use: No Drug use: No Review of Systems Constitutional: Negative for fever. Skin: Negative for itching and rash. Objective Blood pressure 194/90, pulse 69, temperature 36.4 C (97.5 F), resp. rate 18, weight 53 kg (116 lb 13.5 oz), SpO2 97%. Latest Ref Rng 08/15/2023 Glucose 74 - 99 mg/dL 95 BUN 7 - 21 mg/dL 17 Creatinine 0.58 - 0.96 mg/dL 0.81 Sodium 136 - 144 mmol/L 140 Potassium 3.7 - 5.1 mmol/L 4.8 Chloride 97 - 105 mmol/L 104 CO2 22 - 30 mmol/L 26 Anion Gap 9 - 18 mmol/L 10 Calcium 8.5 - 10.2 mg/dL 10.0 eGFR >=60 mL/min/1.73m 71 Physical Exam Constitutional: General: She is not in acute distress. Appearance: She is not toxic-appearing or diaphoretic. HENT: Head: Normocephalic and atraumatic. Pulmonary: Effort: Pulmonary effort is normal. No accessory muscle usage or respiratory distress. Musculoskeletal: Feet: Neurological: Mental Status: She is alert and oriented to person, place, and time. ASSESSMENT/PLAN: 1. Acute paronychia of toe of left foot - ICD9: 681.11, ICD10: L03.032 - Begin treatment with Cephalaxin (Keflex) - No lymphangetic streaking, this was defined for patient to watch for and to seek medical care immediately if appears - Follow up for recheck in three days if s/s persist - CEPHALEXIN 500 MG CAPSULE - MUPIROCIN 2 % TOPICAL OINTMENT Sudheer Olguin APRN.AVIATION ELECTRONIC WARFARE OPERATOR documented in this encounterK[facility] History of Present illness Narrative* Tamia Quezada PA-C - 08/18/2023 11:44 AM EDTAssociated Order(s): Large Joint Arthro/Inj: L knee joint Post-Procedure Diagnose(s): Primary osteoarthritis of left knee Large Joint Arthro/Inj: L knee joint Informed Consent Consent Obtained: Verbal [place] Protocol A moment to CARE was completed. SIGN IN Sign in communication not applicable due to emergent procedure. Personnel directly involved with the procedure wore the appropriate PPE. Special Equipment: N/A Patient/Surrogate Stated/Verified: Patient name, Date of , Relevant allergies and Intended procedure TIME OUT Intended patient and procedure match the source document(s). Consent documented and matches the intended procedure. Relevant labs, photos, and/or imaging studies have been reviewed. Correct side/site marked and visible. Medications required for procedure verified. No fire risk assessment and interventions applicable. No implant(s) inserted. 08/18/2023 11:44 AM The procedure site was prepped in the usual sterile fashion. Site: L knee joint Medications: 20 mg sodium hyaluronate 10 mg/mL(mw 2.4 -3.6 million) Outcome: Tolerated well, no immediate complications Post-injection instructions were reviewed with the patient and the patient voiced understanding of these instructions. SIGN OUT No instruments, equipment or retained foreign bodies applicable. * Aida Narayanan MA - 08/18/2023 11:31 AM EDT Euflexxa injection into left knee. LOT # [id number] EXP 03/14/2024 Aida Narayanan MA documented in this encounterKet[facility]05-[facility]-2024 Nurse Note* Chel Nunez RN - 08/18/2023 11:22 AM EDT AMB ROOMING INTAKE FLOWSHEET DATA Pain Pain Level: 1 Pain Location: Knee-Left Description: Aching Duration Amount of Time: 1 Duration Units: Weeks Frequency: Intermittent Intervention/Comfort measure: Reposition, Relaxation, Medication Patient presents with: Left Knee - Follow Up, Injections Patient here for 3rd Euflexxa injection. LOT # [id number] EXP 03-14-2024 Chel Nunez RN [facility] Nurse Note* Chel Nunez RN - 08/18/2023 11:22 AM EDT [facility] ROOMING INTAKE FLOWSHEET DATA Pain Pain Level: 1 Pain Location: Knee-Left Description: Aching Duration Amount of Time: 1 Duration Units: Weeks Frequency: Intermittent Intervention/Comfort measure: Reposition, Relaxation, Medication Patient presents with: Left Knee - Follow Up, Injections Patient here for 3rd Euflexxa injection. LOT # [id number] 03-14-2024 Chel Nunez RN documented in this encounterK[facility]05-03-2024 Instructions* Patient Instructions* Tasha Deutsch APRN.OUTREACH COORDINATOR - 08/15/2023 10:21 AM EDT 1) - Check BMP 2) - Consider melatonin 3 mg for sleep if needed, could repeat once in a night if needed 3) - Follow up with Adal in October as scheduled documented in this encounterK[facility]05-03-2024 History of Present illness Narrative* Tasha Deutsch APRN.CNS - 08/15/2023 10:07 AM EDT This is a 83 year old female who presents today with: No chief complaint on file. HISTORY OF PRESENT ILLNESS: Behzad Hay is a 83 year old female. No chief complaint on file. HTN: Patient is compliant with meds No Monitors bp at home: Yes. Denies side effects: No. Chest pain: No. Dyspnea: No. Edema: No. Palpitations: Yes. Syncope: No. Headache: Headaches when she wakes up in the morning. Trouble sleeping. Dizziness: No. Urinary Sx improved. PAST MEDICAL HISTORY: PAST MEDICAL HISTORY Diagnosis Date Abnormal CT of the abdomen 01/24/2014 localized perihepatic fluid indeterminate, 4mm density too small for ID, fusiforma sortic ectasia Anemia Arthritis Cerebral degeneration (HCC) Collagenous colitis Degenerative lumbar disc Dyslipidemia GERD (gastroesophageal reflux disease) H/O colonoscopy 09/23/2014 small internal hemorrhoids otherwise WNL. No further surveillance recommended Hiatal hernia History of esophagogastroduodenoscopy (EGD) 09/23/2014 [facility]: All normal HTN (hypertension) Hyperlipidemia, mixed Osteoarthritis Osteopenia PUD (peptic ulcer disease) 2014 Vitamin D deficiency PAST SURGICAL HISTORY Procedure Laterality Date BUNIONECTOMY, LAPIDUS-TYPE Left 03/30/2007 Dr. Beltran BUNIONECTOMY, LAPIDUS-TYPE Right 03/30/2008 Dr. Beltran CATARACT EXTRACTION W/ INTRAOCULAR LENS IMPLANT HX Left 03/31/2003 Dr. Sosa COLONOSCOPY 09/23/[address] Addy Enriquez [place] internal hemorrhoids, otherwise WNL COLONOSCOPY FLX DX W/COLLJ SPEC WHEN PFRMD 09/01/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 Zoe Diana Normal esophagus, z-line, stomach and duodenum ESOPHAGOGASTRODUODENOSCOPY TRANSORAL DIAGNOSTIC 09/01/2020 EYE SURGERY HX INCISE FINGER TENDON SHEATH Right 12/26/2016 Right ring trigger finger release JOINT REPLACEMENT HX LAP UMBILICAL HERNIA REPAIR 02/24/2014 Umbilical hernia repair REMOVE CATARACT, INSERT LENS,EX Right REMV CATARACT EXTRACAP,INSERT LENS Right 03/31/2003 REMV CATARACT EXTRACAP,INSERT LENS Left 02/17/2003 REVJ TOT HIP ARTHRP BTH W/WO AGRFT/ALGRFT Right 05/30/2011 ROTATOR CUFF REPAIR Right 2013 R rotator cuff repair TONSILLECTOMY HX TONSILLECTOMY PRIMARY/SECONDARY <AGE 12 Tonsillectomy TOTAL HIP JOINT REPLACEMENT Left 10/03/2014 ALLERGIES Adhesive Tape (Rosins), Bactrim [Sulfamethoxazole-Trimethoprim], Macrobid [NitrofurantoinMonohyd/M-Cryst], and Jqysvfk-Hzl-Byx Reductase Inhibitors MEDICATIONS Current Outpatient Medications Medication Sig lisinopril (ZESTRIL) 30 mg tablet Take 1 tablet by mouth once daily. TURMERIC ORAL Take by mouth. CAPSICUM, CAYENNE, ORAL Take by mouth. ascorbic acid/bioflavonoids (JENNIE C ORAL) Take by mouth. FLAXSEED OIL ORAL Take by mouth. GARLIC ORAL Take by mouth. Magnesium 250 mg tab Take 500 mg by mouth once daily. propylene glycol/peg 400 (SYSTANE ULTRA OPHTHALMIC) Use in eyes. Zinc 50 mg tab Take by mouth once daily. cranberry fruit extract (CRANBERRY ORAL) Take 650 mg by mouth once daily. LACTOBACILLUS ACIDOPHILUS (PROBIOTIC ACIDOPHILUS ORAL) Take by mouth. Cyanocobalamin 2,500 mcg subl Dissolve 1 tablet under the tongue once daily. cholecalciferol (VITAMIN D3) 5,000 unit tab Take 5,000 Units by mouth once daily. multivitamin ORAL tablet Take 1 tablet by mouth once daily. metoprolol succinate ER (TOPROL XL) 25 mg 24 hr tablet Take 0.5 tablets by mouth once daily. (Patient not taking: Reported on 08/15/2023) No current facility-administered medications for this visit. FAMILY HISTORY Problem Relation Age of Onset Cancer Mother Hypertension Mother other (CVA) Mother age 86 Heart Father other (CVA) Father age 81 Ischemic Heart Disease Brother age 76 other (CVA) Brother other (ADMISSIONS COUNSELOR shunt) Brother Hypertension Sister Diabetes Sister age 66 (sepsis) Social History Tobacco Use Smoking status: Never Smokeless tobacco: Never Vaping Use Vaping Use: Never used Substance Use Topics Alcohol use: No Drug use: No EXAM: BP 160/72 Pulse 83 Resp 16 Wt 52.6 kg (116 lb) SpO2 98% BMI 21.56 kg/m PHYSICAL EXAM: General Appearance: Well appearing, alert, in no acute distress, well-hydrated, well nourished.. Skin: Skin color, texture, turgor normal, no suspicious rashes or lesions. Back:scoliosis and kyphosis- poor posture, walks with a cane Lungs: Lungs clear to auscultation. No wheezing, rhonchi, rales.. Heart: RRR soft RADHA @ sternal border, gallop, or rubs. No lower ext. edema BP recheck 128/78 LABS: check BMP ASSESSMENT/PLAN: 1. Headache, unspecified headache type - ICD9: 784.0, ICD10: R51.9 (primary diagnosis) Morning headache 2. Primary hypertension - ICD9: 401.9, ICD10: I10 - Controlled - Recommend home blood pressure monitoring, to bring results to next visit - Encouraged sodium restriction, DASH or Mediterranean diet - Recommend regular aerobic exercise 3. Paroxysmal atrial fibrillation (HCC) - ICD9: 427.31, ICD10: I48.0 Regular rhythm 4. Dysuria - ICD9: 788.1, ICD10: R30.0 Resolved - Patient education for prevention given 5. Primary insomnia - ICD9: 307.42, ICD10: F51.01 Educated on use of melatonin if needed Discussed treatment plan and patient voices understanding. Patient's questions answered appropriately. Medications and potential side effects were discussed and patient voices understanding. Return to the office as scheduled or as needed for worsening/no improvement. Tasha Deutsch APRN.CNS The patient indicates understanding of these issues and agrees with the plan. documented in this encounterK[facility]04-29-2024 History of Present illness Narrative* Tamia Quezada PA-C - 08/11/2023 1:24 PM EDTAssociated Order(s): Large Joint Arthro/Inj: L knee joint Post-Procedure Diagnose(s): Chronic pain of left knee Large Joint Arthro/Inj: L knee joint Informed Consent Consent Obtained: Verbal [place] Protocol A moment to CARE was completed. SIGN IN Sign in communication not applicable due to emergent procedure. Personnel directly involved with the procedure wore the appropriate PPE. Special Equipment: N/A Patient/Surrogate Stated/Verified: Patient name, Date of , Relevant allergies and Intended procedure TIME OUT Intended patient and procedure match the source document(s). Consent documented and matches the intended procedure. Relevant labs, photos, and/or imaging studies have been reviewed. Correct side/site marked and visible. Medications required for procedure verified. No fire risk assessment and interventions applicable. No implant(s) inserted. 08/11/2023 1:24 PM The procedure site was prepped in the usual sterile fashion. Site: L knee joint Medications: 20 mg sodium hyaluronate 10 mg/mL(mw 2.4 -3.6 million) Outcome: Tolerated well, no immediate complications Post-injection instructions were reviewed with the patient and the patient voiced understanding of these instructions. SIGN OUT No instruments, equipment or retained foreign bodies applicable. * Aida Narayanan MA - 08/11/2023 11:21 AM EDT AMB ROOMING INTAKE FLOWSHEET DATA Euflexxa injection # 2 into left knee LOT # [id number] EXP 03/14/2024 Aida Narayanan MA documented in this encounterK[facility]04-22-2024 History of Present illness Narrative* Tamia Quezada PA-C - 08/04/2023 11:36 AM EDTAssociated Order(s): Large Joint Arthro/Inj: L knee joint Post-Procedure Diagnose(s): Primary osteoarthritis of left knee; Chronic pain of left knee Large Joint Arthro/Inj: L knee joint Informed Consent Consent Obtained: Verbal [place] Protocol A moment to CARE was completed. SIGN IN Sign in communication not applicable due to emergent procedure. Personnel directly involved with the procedure wore the appropriate PPE. Special Equipment: N/A Patient/Surrogate Stated/Verified: Patient name, Date of , Relevant allergies and Intended procedure TIME OUT Intended patient and procedure match the source document(s). Consent documented and matches the intended procedure. Relevant labs, photos, and/or imaging studies have been reviewed. Correct side/site marked and visible. Medications required for procedure verified. No fire risk assessment and interventions applicable. No implant(s) inserted. 08/04/2023 11:36 AM The procedure site was prepped in the usual sterile fashion. Site: L knee joint Medications: 20 mg sodium hyaluronate 10 mg/mL(mw 2.4 -3.6 million) Outcome: Tolerated well, no immediate complications Post-injection instructions were reviewed with the patient and the patient voiced understanding of these instructions. SIGN OUT No instruments, equipment or retained foreign bodies applicable. * Chel Nunez RN - 08/04/2023 11:22 AM EDT AMB ROOMING INTAKE FLOWSHEET DATA Pain Pain Level: 5 Pain Location: Knee-Left Description: Sharp Duration Units: Months Frequency: Intermittent Intervention/Comfort measure: Reposition, Relaxation, Medication Patient presents with: Left Knee - Established Patient, Injections Patient is here for first Euflexxa injection LOT # [id number] EXP 03/09/2024 Chel Nunez RN documented in this encounterK[facility]04-03-2024 History of Present illness Narrative* Moses Ross MD - 07/16/2023 12:57 PM EDT Patient presents with: UTI HPI: Patient presents today for office visit for acute visit. Urology: patient is concerned about urinary symptoms. Duration of symptoms: 1 week Dysuria: uncomfortable. Urinary urgency: Yes. Urinary frequency: Yes. Suprapubic pain: little bit just today. Back pain: Yes. In her lower back. Some chronic back pain. Fever: No. Nausea: No. Vomiting: No. No hematuria. MEDICATIONS: Current Outpatient Medications Medication Sig lisinopril (ZESTRIL) 10 mg tablet Take 2 tablets by mouth once daily. TURMERIC ORAL Take by mouth. CAPSICUM, CAYENNE, ORAL Take by mouth. metoprolol succinate ER (TOPROL XL) 25 mg 24 hr tablet Take 0.5 tablets by mouth once daily. (Patient not taking: Reported on 06/23/2023) ascorbic acid/bioflavonoids (JENNIE C ORAL) Take by mouth. FLAXSEED OIL ORAL Take by mouth. GARLIC ORAL Take by mouth. Magnesium 250 mg tab Take 500 mg by mouth once daily. propylene glycol/peg 400 (SYSTANE ULTRA OPHTHALMIC) Use in eyes. Zinc 50 mg tab Take by mouth once daily. cranberry fruit extract (CRANBERRY ORAL) Take 650 mg by mouth once daily. LACTOBACILLUS ACIDOPHILUS (PROBIOTIC ACIDOPHILUS ORAL) Take by mouth. Cyanocobalamin 2,500 mcg subl Dissolve 1 tablet under the tongue once daily. cholecalciferol (VITAMIN D3) 5,000 unit tab Take 5,000 Units by mouth once daily. multivitamin ORAL tablet Take 1 tablet by mouth once daily. No current facility-administered medications for this visit. ALLERGIES: ALLERGIES Allergen Reactions Adhesive Tape (Tati* Rash Bactrim [Sulfametho* Rash Macrobid [Nitrofura* Rash Fcruzzg-Mnc-Lai Red* Intolerance PAST MEDICAL HISTORY Diagnosis Date Abnormal CT of the abdomen 01/24/2014 localized perihepatic fluid indeterminate, 4mm density too small for ID, fusiforma sortic ectasia Anemia Arthritis Cerebral degeneration (HCC) Collagenous colitis Degenerative lumbar disc Dyslipidemia GERD (gastroesophageal reflux disease) H/O colonoscopy 09/23/2014 small internal hemorrhoids otherwise WNL. No further surveillance recommended Hiatal hernia History of esophagogastroduodenoscopy (EGD) 09/23/2014 [facility]: All normal HTN (hypertension) Hyperlipidemia, mixed Osteoarthritis Osteopenia PUD (peptic ulcer disease) 2013 Vitamin D deficiency PAST SURGICAL HISTORY Procedure Laterality Date BUNIONECTOMY, LAPIDUS-TYPE Left 03/30/2007 Dr. Beltran BUNIONECTOMY, LAPIDUS-TYPE Right 03/30/2008 Dr. Beltran CATARACT EXTRACTION W/ INTRAOCULAR LENS IMPLANT HX Left 03/31/2003 Dr. Sosa COLONOSCOPY 09/23/[address] Addy Enriquez, [place] internal hemorrhoids, otherwise WNL COLONOSCOPY FLX DX W/COLLJ SPEC WHEN PFRMD 09/01/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 Zoe Diana Normal esophagus, z-line, stomach and duodenum ESOPHAGOGASTRODUODENOSCOPY TRANSORAL DIAGNOSTIC 09/01/2020 EYE SURGERY HX INCISE FINGER TENDON SHEATH Right 12/26/2016 Right ring trigger finger release JOINT REPLACEMENT HX LAP UMBILICAL HERNIA REPAIR 02/24/2014 Umbilical hernia repair REMOVE CATARACT, INSERT LENS,EX Right REMV CATARACT EXTRACAP,INSERT LENS Right 03/31/2003 REMV CATARACT EXTRACAP,INSERT LENS Left 02/17/2003 REVJ TOT HIP ARTHRP BTH W/WO AGRFT/ALGRFT Right 05/30/2011 ROTATOR CUFF REPAIR Right 2013 R rotator cuff repair TONSILLECTOMY HX TONSILLECTOMY PRIMARY/SECONDARY <AGE 12 Tonsillectomy TOTAL HIP JOINT REPLACEMENT Left 10/03/2014 FAMILY HISTORY Problem Relation Age of Onset Cancer Mother Hypertension Mother other (CVA) Mother age 86 Heart Father other (CVA) Father age 81 Ischemic Heart Disease Brother age 76 other (CVA) Brother other (ADMISSIONS COUNSELOR shunt) Brother Hypertension Sister Diabetes Sister age 66 (sepsis) Social History Tobacco Use Smoking status: Never Smokeless tobacco: Never Vaping Use Vaping Use: Never used Substance Use Topics Alcohol use: No Drug use: No Reviewed current medications, allergies, past medical history, surgical history, family history andsocial history today. REVIEW OF SYSTEMS All other reviewed and negative other than HPI. VITALS: BP 161/76 Pulse 60 Temp 36.5 C (97.7 F) (Tympanic) Wt 54 kg (119 lb) BMI 22.12 kg/m Last 4 Encounter Wt Readings: Date: Wt: 07/08/2023 53.1 kg (117 lb) 04/28/2023 51.7 kg (114 lb) 03/31/2023 51.3 kg (113 lb) 12/30/2022 52.2 kg (115 lb) PHYSICAL EXAMINATION: General appearance: Well appearing, alert, in no acute distress, well-hydrated, well nourished. Skin: Skin color, texture, turgor normal, no suspicious rashes or lesions Head: Normocephalic, no masses, lesions, tenderness or abnormalities Back: no cva tenderness. Lungs: Lungs clear to auscultation. No wheezing, rhonchi, rales Heart: RRR without murmur, gallop, or rubs. No ectopy Abdomen: Normal abdominal exam, Abdomen soft, non-tender. Bowel sounds normal. No masses, organomegaly ASSESSMENT/PLAN: 1. Acute right-sided low back pain without sciatica - ICD9: 724.2, ICD10: M54.50 (primary diagnosis) - send urine for culture, Add keflex. Recheck ua and culture in two weeks to ensure blood is gone. - UA DIP, URINE (POC) 2. Primary hypertension - ICD9: 401.9, ICD10: I10 - Uncontrolled - her bp has not been controlled looking at last list of bp's. She says is often high at home. Increase lisinopril to 30 mg and recheck one month. - LISINOPRIL 30 MG TABLET 3. Urinary tract infection with hematuria, site unspecified - ICD9: 599.0, 599.70, ICD10: N39.0, R31.9 - URINALYSIS, WITH MICROSCOPIC - URINE CULTURE - URINALYSIS, WITH MICROSCOPIC Moses Ross MD documented in this encounterK[facility]04-03-2024 Miscellaneous Notes* Telephone Encounter - Eleanor Joel RN - 07/16/2023 8:42 AM EDT Triage Protocol Recommended: (Upgraded) See provider within 4 hours for evaluation. Appt made with Breann Schmitz CNP for 10am today. Reason for Disposition Side (flank) or lower back pain present Answer Assessment - Initial Assessment Questions 1. SYMPTOM: urinary sx's x 1 week-includes burning with urination, chills at times, mild back pain at times (not having now), and feeling "a little out of sorts" last night 2. ONSET: 1 week ago 3. PAIN: as above 4. CAUSE:Pt thinks she may have a UTI 5. OTHER SYMPTOMS: - urine is yellow, denies blood observed -has not noticed change in odor -no N/V -one loose stool this morning -Trying to drink more water -Headaches in mornings at times -denies sweats -denies dizziness 6. : no Protocols used: Urinary Zzjvowci-OLVXN-EI documented in this encounterKet[facility]03-26-2024 History of Present illness Narrative* Hetal Gallardo, DO - 07/08/2023 9:54 AM EDT Images from the original note were not included. [facility] [place] DEPARTMENT OF VASCULAR SURGERY OUTPATIENT VISIT DATE July 08, 2023 OUTPATIENT VISIT TYPE CONSULTATION SERVICE DATE: 07/08/2023 SERVICE TIME: 9:54 AM PRIMARY CARE PHYSICIAN: Jose G Harrington PA-C REFERRING PROVIDER: Moses Ross [address] [facility] [id number] Consult requested for an opinion regarding the evaluation and treatment of the above. My final impression and recommendations will be communicated back to the requesting physician by way of the shared medical record or letter via US mail. CHIEF COMPLAINT: Carotid artery stenosis HISTORY OF PRESENT ILLNESS: Vascular consultation at the request of Dr. Moses Ross. A copy of this consultation note will be provided to the requesting physician by way of shared Medical record or letter to requesting physician via US mail. Ms. Hay is a 83 year old female who is seen today for carotid artery stenosis/turbulent flowon carotid duplex possible FMD. She denies significant neurologic deficit. Denies monocular vision loss or vision changes. She had duplex from a new primary care provider. PAST MEDICAL HISTORY Diagnosis Date Abnormal CT of the abdomen 01/24/2014 localized perihepatic fluid indeterminate, 4mm density too small for ID, fusiforma sortic ectasia Anemia Arthritis Cerebral degeneration (HCC) Collagenous colitis Degenerative lumbar disc Dyslipidemia GERD (gastroesophageal reflux disease) H/O colonoscopy 09/23/2014 small internal hemorrhoids otherwise WNL. No further surveillance recommended Hiatal hernia History of [facility] ([facility] HTN (hypertension) Hyperlipidemia, mixed Osteoarthritis Osteopenia PUD (peptic ulcer disease) 2013 Vitamin D deficiency PAST SURGICAL HISTORY Procedure Laterality Date BUNIONECTOMY, LAPIDUS-TYPE Left 03/30/2007 Dr. Beltran BUNIONECTOMY, LAPIDUS-TYPE Right 03/30/2008 Dr. Beltran CATARACT EXTRACTION W/ INTRAOCULAR LENS IMPLANT HX Left 03/31/2003 Dr. Sosa COLONOSCOPY 09/23/[address] Addy Enriquez, [place] internal hemorrhoids, otherwise WNL COLONOSCOPY FLX DX W/COLLJ SPEC WHEN PFRMD 09/01/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 Zoe Diana Normal esophagus, z-line, stomach and duodenum ESOPHAGOGASTRODUODENOSCOPY TRANSORAL DIAGNOSTIC 09/01/2020 EYE SURGERY HX INCISE FINGER TENDON SHEATH Right 12/26/2016 Right ring trigger finger release JOINT REPLACEMENT HX LAP UMBILICAL HERNIA REPAIR 02/24/2014 Umbilical hernia repair REMOVE CATARACT, INSERT LENS,EX Right REMV CATARACT EXTRACAP,INSERT LENS Right 03/31/2003 REMV CATARACT EXTRACAP,INSERT LENS Left 02/17/2003 REVJ TOT HIP ARTHRP BTH W/WO AGRFT/ALGRFT Right 05/30/2011 ROTATOR CUFF REPAIR Right 2013 R rotator cuff repair TONSILLECTOMY HX TONSILLECTOMY PRIMARY/SECONDARY <AGE 10 Tonsillectomy TOTAL HIP JOINT REPLACEMENT Left 10/03/2014 SOCIAL HISTORY: Social History Tobacco Use Smoking status: Never Smokeless tobacco: Never Vaping Use Vaping Use: Never used Substance Use Topics Alcohol use: No Drug use: No FAMILY HISTORY Problem Relation Age of Onset Cancer Mother Hypertension Mother other (CVA) Mother age 86 Heart Father other (CVA) Father age 81 Ischemic Heart Disease Brother age 76 other (CVA) Brother other (ADMISSIONS COUNSELOR shunt) Brother Hypertension Sister Diabetes Sister age 66 (sepsis) MEDICATIONS: lisinopril (ZESTRIL) 10 mg tablet^Take 2 tablets by mouth once daily.^Disp: 60 tablet^Rfl: 2 TURMERIC ORAL^Take by mouth.^Disp: ^Rfl: CAPSICUM, CAYENNE, ORAL^Take by mouth.^Disp: ^Rfl: ascorbic acid/bioflavonoids (JENNIE C ORAL)^Take by mouth.^Disp: ^Rfl: FLAXSEED OIL ORAL^Take by mouth.^Disp: ^Rfl: GARLIC ORAL^Take by mouth.^Disp: ^Rfl: Magnesium 250 mg tab^Take 500 mg by mouth once daily.^Disp: ^Rfl: propylene glycol/peg 400 (SYSTANE ULTRA OPHTHALMIC)^Use in eyes.^Disp: ^Rfl: Zinc 50 mg tab^Take by mouth once daily.^Disp: ^Rfl: cranberry fruit extract (CRANBERRY ORAL)^Take 650 mg by mouth once daily. ^Disp: ^Rfl: LACTOBACILLUS ACIDOPHILUS (PROBIOTIC ACIDOPHILUS ORAL)^Take by mouth.^Disp: ^Rfl: Cyanocobalamin 2,500 mcg subl^Dissolve 1 tablet under the tongue once daily.^Disp: ^Rfl: 0 cholecalciferol (VITAMIN D3) 5,000 unit tab^Take 5,000 Units by mouth once daily.^Disp: ^Rfl: multivitamin ORAL tablet^Take 1 tablet by mouth once daily.^Disp: ^Rfl: metoprolol succinate ER (TOPROL XL) 25 mg 24 hr tablet^Take 0.5 tablets by mouth once daily.^Disp: 45 tablet^Rfl: 1 (Patient not taking: Reported on 06/23/2023) ALLERGIES: ALLERGIES Allergen Reactions Adhesive Tape (Tati* Rash Bactrim [Sulfametho* Rash Macrobid [Nitrofura* Rash Ycdsdiv-Euu-Dgb Red* Intolerance REVIEW of SYSTEM: Constitutional: No weight loss, malaise or fevers. HEENT: Negative for frequent or significant headaches Respiratory: Negative for cough, wheezing, or shortness of breath Cardiovascular: Negative for chest pain, leg swelling or palpitations Musculoskeletal: Positive for back pain, joint swelling, and joint pain Hematology/Lymphatic: Negative for prolonged bleeding, bruising easily or swollen nodes Neurologic: No history or headaches, syncope, paralysis, seizures or tremors Integumentary: Negative for lesions, rash, and itching. PHYSICAL EXAM: VITALS: BP 180/84 Pulse 72 Wt 117 lb (53.1kg) SpO2 98% General: Alert and oriented Integumentary: Normal color, no rash, no lesions. HEENT: EOM, pupils equal, round and reactive. No carotid bruits Cardiovascular: Normal S1 & S2, no rubs, murmurs or gallops. No JVD., Pulse regular. Lungs: Normal breath sounds, no wheezes or crackles. Abdomen: Not examined Extremities: No deformity, no edema or tenderness, no joint swelling or clubbing. Neurological: Normal cognition and motor skills. Vascular: Dorsalis Pedal Right: Normal - Left: Normal Diagnostic tests reviewed for today's visit: Most recent labs Most recent imaging IMPRESSION: Ms. Hay is a 83 year old female with possible FMD . PLAN and RECOMMENDATIONS: Recommend CTA to assess for stenosis versus FMD Continue current medications If FMD present, she would benefit from evaluation at FMD clinic Follow up after CT scan SIGNATURE: Hetal Gallardo DO PATIENT NAME: Behzad Hay DATE: July 08, 2023 TIME: 9:54 AM * Molly Mathis RN - 07/08/2023 9:32 AM EDT Patient presents with: Consult Carotid Stenosis: Dr. Ross Referral documented in [facility] History of Present illness Narrative* Julee Becker, JOE - 06/25/2023 10:20 AM EDT Images from the original note were not included. Episode Visit Count: 10 Therapist That Will Accept/Oversee The Plan Of Care: Julee Becker Start of Care Date: 04/16/23 Onset Date: 04/16/21 Plan of Care Certification Date: 06/25/23 Next Certification Due Date: 06/25/23 REHABILITATION AND SPORTS THERAPY PHYSICAL THERAPY DISCONTINUANCE OF CARE PLAN OF CARE UPDATE: Assessment: Behzad Hay is discontinued from Physical Therapy services due to goal achievement and maximal benefit.. Patient was seen for 10 visits from Start of Care Date: 04/16/23 to 06/25/2023 and treatment included: Therapeutic exercise and Self-custodial management. Goals for Episode of Care: created on 04/16/23 through 05/28/23 Goals updated on 05/21/2023 through 06/25/23 Goals updated on 06/25/2023. Independent in a Home Exercise Program. -- MET Patient will decrease pain rating by 2 points to meet minimal clinical important difference for numeric pain rating scale. -- MET Patient will decrease pain to 1-2/10 with functional activities to allow patient to improve transfers. -- MET Restore pain free R shoulder AROM to 160 or greater to allow for reaching overhead. -- PARTIALLY MET Maintain proper sitting posture throughout the session to allow for reduced cervical spine or shoulder pain. -- PARTIALLY MET Patient Goals: reduce neck, shoulder, and hip pain. -- MET UPDATED: Pt. Will complete car transfers with reports of less difficulty due to weakness. -- MET Pt. Will amb 50' with SC and SBA without increased LBP or B hip pain from baseline. -- MET SUBJECTIVE: Pt. reports that her BP was higher this morning when she left 170/78. She did take her meds at 07:00.. Patient Goals: UPDATED: walk across the room without increased LB or B hip pain Functional Limitations: walking, rising from a chair, walking in the community (difficulty with cartransfers) Pain: Pain Pain Level: 0 Pain Location: Shoulder - Right Description: Aching Frequency: At rest Pain Level 2: 0 Pain Location 2: Back, Hip - Right Description 2: Aching Frequency 2: At rest Post Treatment Pain Post Treatment Pain Location: Back, Hip - Left, Hip - Right PROMIS Scales 06/18/2023 05/21/2023 04/16/2023 Higher is Better Phys Func - Score 39 (moderate dysfunction) 42 (mild dysfunction) 40 (mild dysfunction) Phys Func - Percentile 14 21 16 Self-Eff Symptom - Score 50 (Average) 56 (Average) 42 (Average) Self-Eff Symptom - Percentile 50 73 21 T-scores: mean of general population = 50. 5 points is clinically meaningfully difference Percentiles provide an indication of how the patient's score ranks in relation to the general population. Higher percentile rankings indicate better function/quality of life. 50th percentile is the average of the general population and indicates half of respondents had a worse score. OBJECTIVE MEASURES WITH LEVEL OF FUNCTION: Lumbar Spine AROM Lumbar Flexion: Normal Lumbar Extension: Major limitation, Produces Lumbar R Side [place]: Moderate limitation Lumbar L Side [place]: Moderate limitation Lumbar R Side-Bend: Minimal limitation, Produces Lumbar L Side-Bend: Minimal limitation UE AROM R Shoulder Flex: 150 Degrees Vitals BP: 177/87 Pulse: 61 SpO2: 97 % TREATMENT: Therapeutic Exercise: 1: standing lumbar flexion, extension, SB each side 1x each, SG each side 1x each 2: seated TA activation 2x10 3: seated TA activation with alt marches 2x10 4: seated TA activation with alt opposite UE/LE raises 2x10 5: seated TA activation with alt marches 2x10, adding a 3 sec pause with each 6: seated TA activation with alt opposite UE/LE raises 2x10, adding a 3 sec pause with each 7: seated lumbar flexion 2x10 8: seated B hip adduction with towel roll between the knees 2x15 (cues to bring the feet closer to jeffery to avoid excessive IR AROM) 9: seated towel roll between the knees alt knee extension 2x12 Skilled Intervention: Patient was educated in proper exercise technique and purpose for exercises. Reviewed and educated patient on additions/changes for home exercise program as above (*). Skilled judgment was used in selection of appropriate interventions. Correct performance of therapeutic exercises was facilitated with verbal, visual, and tactile cuing. Educated patient on rationale for performing exercises in regards to decreasing fatigue , increase ease of ADL, and ROM and function . Patient education as noted. Gait Training: Pre gait training: correct cane adjustment - education how to properly size a cane Distance (feet): 40' 6x -- denies hip or LBP after gait training Gait Cues: arm swing with opposite LE advancement Assistive Device: SC Assist Level: mod indep Skilled Intervention: Patient was provided independence during pre-gait/gait training to prevent falls and insure safety. Skilled judgment used to assess selection, proper sizing, and proper use of assistive device. Correct performance of home program was facilitated with verbal, visual, and tactile cueing. Self-Assisted Management: 1: encouraged pt. to continue HEP to self manage symptoms and prevent loss of ROM/strength Skilled Intervention: Skilled judgment in the selection of proper modification for activity of daily living/home management based on clinical presentation, deficits, and needs. Provided written instruction for activities of daily living techniques to facilitate proper performance and compliance. Reviewed patient specific diagnosis in relation to activities of daily living/home management. Activity progression based on professional judgement. Reviewed and educated patient on additions/changes for home program as noted above with an (*). Correct performance of home program was facilitated with verbal and visual cueing. Billing Therapeutic Exercise Treatment Minutes: 25 Self-Care/Home Management Treatment Minutes: 5 Gait Training Treatment Minutes: 10 Skilled Treatment Time Minutes (timed and untimed codes): 40 Total Session Time (minutes): 40 Session Start Time : 1018 Session Stop Time : 1058 Julee Becker PT documented in this [facility] History of Present illness Narrative* Tamia Quezada PA-C - 06/23/2023 10:27 AM EDTAssociated Order(s): Large Joint Arthro/Inj: L knee joint Post-Procedure Diagnose(s): Chronic pain of left knee; Primary osteoarthritis of left knee; Patellofemoral pain syndrome of left knee Tamia Quezada PA-C Department of Orthopaedics Orthopaedics [address] [place] [id number] Dept: [phone] Dept June 23, 2023 CHIEF COMPLAINT: Established Patient and Pain of the Left Knee Ms. Behzad Hay is a 83 year old female who presents with pain in her left knee, pain today is a 10 out of 10 dull aching. She had viscosupplementation injections in the left knee and November 2020, she found the injections to be helpful for almost a year. She is interested in repeating viscosupplementation. Schedule today for a corticosteroid injection, she had not found cortisone injectionsto be particularly helpful in the past however. She is unable to tolerate oral NSAIDs and only takes Tylenol for pain. She ambulates with the assistance of a cane. ASSESSMENT: M25.562, G89.29 Chronic pain of left knee (primary encounter diagnosis) M17.12 Primary osteoarthritis of left knee M22.2X2 Patellofemoral pain syndrome of left knee PLAN: Will go ahead and do a left knee corticosteroid injection today, we will submit for prior authorization of repeat viscosupplementation injections for the left knee. Ms. Behzad Hay was advised as to contrast therapies and/or to take analgesics/anti-inflammatories as needed and all contraindications were reviewed. OBJECTIVE: Ms. Behzad Hay is a pleasant 83 year old in no apparent distress. Gen:There were no vitals taken for this visit. nl development, non obese, no deformities ENT: Normocephalic, normal hearing, moist mucosa CV: Pulses:DP/PT= 2+ and symmetric, capillary refill < 2 secs, no peripheral edema/varicosities Skin: no rash, bruising or lesions. Good turgor. Psych: cooperative and appropriate, alert and oriented x 3, good mood and affect. Musculoskeletal: KNEE EXAM: Left: Alignment: Valgus deformity, Partially Correctable Range of motion is 5 degrees in extension and 110 degrees of flexion. Extension La degrees Pain with ROM: Yes Effusion: Slight Tender to the palpation of Patellar tendon and Medial femoral condyle Pain with patellar compression: Yes Stability: Anterior/Posterior stable and Varus/Valgus stable Hip Exam: flexion to 100+ degrees, full extension, internal/external rotation adequate, and no painwith log roll Neurovascular Status: Sensation Intact, Moves foot and ankle up & down, and 2+ dorsalis pedis In addition to the comprehensive evaluation, assessment and plan outlined above, and as a distinct and separate element to the visit today, separate from medication orders of prior authorization for repeat viscosupplementation , we have made the determination to proceed with an injection to aid in the management of the patient's condition. We discussed the risks, benefits, alternatives and expected outcomes of this injection in detail, and the patient agreed to proceed. The procedure was performed as detailed below. Large Joint Arthro/Inj: L knee joint Informed Consent Consent Obtained: Verbal [place] Protocol A moment to CARE was completed. SIGN IN Sign in communication not applicable due to emergent procedure. Personnel directly involved with the procedure wore the appropriate PPE. Special Equipment: N/A Patient/Surrogate Stated/Verified: Patient name, Date of , Relevant allergies and Intended procedure TIME OUT Intended patient and procedure match the source document(s). Relevant labs, photos, and/or imaging studies have been reviewed. Correct side/site marked and visible. Medications required for procedure verified. No fire risk assessment and interventions applicable. No implant(s) inserted. 06/23/2023 10:34 AM The procedure site was prepped in the usual sterile fashion. Site: L knee joint Medications: 6 mg betamethasone acetate-betamethasone sodium phosphate 6 mg/mL Anesthetics: 4 mL lidocaine (PF) 10 mg/mL (1 %) Outcome: Tolerated well, no immediate complications Post-injection instructions were reviewed with the patient and the patient voiced understanding of these instructions. SIGN OUT All instruments, equipment, possible retained foreign bodies accounted for. Rationale for Viscosupplementation: Renewal Request As a part of a multimodal treatment plan, we are requesting authorization of hyaluronic acid viscosupplementation injections for the improvement of symptoms related to osteoarthritis. Authorization is being requested for treatment of the Left knee. Rationale for authorization of these injections is based on the following elements: Signs and Symptoms Length of symptoms > 3 months Pain interferes with ADLs? Yes Radiographic evidence of OA? Yes Previous Treatments Bracing attempted? No Formal Physical Therapy (PT)/ Home Exercise Program (HEP) attempted? Patient can not tolerate PT/HEP type of modalities despite several attempts NSAID medication attempted? Contraindicated (GI upset/HTN) Corticosteroid injection attempted? Patient has had a previous CSI with intermittent relief Weight management attempted? No (Normal BMI) Prior Viscosupplementation Prior viscosupplementation? Yes Prior viscosupplementation improved symptoms? Yes Prior viscosupplementation improved symptoms at least 6 months? Yes Patient continues to be symptomatic despite above treatment attempts. Requested Viscosupplementation Preferred product: Euflexxa Alternative product: Gel One or payor preferred Imaging: IMPRESSION: Severe patellofemoral osteoarthritis without acute osseous findings. Patient Carrier: STAN Transcribe Date/Time: Jun 23 2023 4:38P Dictated by : RON ANTONIO MD This examination was interpreted and the report reviewed and electronically signed by: RON ANTONIO MD on Jun 23 2023 4:39PM EST Results-Findings * * *Final Report* * * DATE OF EXAM: Jun 23 2023 9:48AM WRX [id number] - XR KNEE 4V AP/PA BOTH+LAT/MERE LT / PROCEDURE REASON: Pain * * * * Physician Interpretation * * * * EXAMINATION: XR KNEE 4V AP/PA BOTH+LAT/MERE LT CLINICAL HISTORY: Chronic left knee pain Pain Technique: XR KNEE 4V AP/PA BOTH+LAT/MERE LT -- LEFT with 4 views on 4 images Comparison: 10/30/2020 RESULT: No fracture or dislocation. Bones are demineralized. Severe patellofemoral degenerative changes with mtab-re-xdjf articulation, subchondral cirrhosis and marginal osteophytes. Tibiofemoral joint spaces are preserved; minimal marginal osteophytes. Chondrocalcinosis. No erosions. No joint effusion. Supporting Subjective Information Below: Past Surgical History: PAST SURGICAL HISTORY Procedure Laterality Date BUNIONECTOMY, LAPIDUS-TYPE Left 03/30/2007 Dr. Beltran BUNIONECTOMY, LAPIDUS-TYPE Right 03/30/2008 Dr. Beltran CATARACT EXTRACTION W/ INTRAOCULAR LENS IMPLANT HX Left 03/31/2003 Dr. Sosa COLONOSCOPY 09/23/2014 colonoscopy Samara Rodarte internal hemorrhoids, otherwise WNL COLONOSCOPY FLX DX W/COLLJ SPEC WHEN PFRMD 09/01/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 Zoe Diana Normal esophagus, z-line, stomach and duodenum ESOPHAGOGASTRODUODENOSCOPY TRANSORAL DIAGNOSTIC 09/01/2020 EYE SURGERY HX INCISE FINGER TENDON SHEATH Right 12/26/2016 Right ring trigger finger release JOINT REPLACEMENT HX LAP UMBILICAL HERNIA REPAIR 02/24/2014 Umbilical hernia repair REMOVE CATARACT, INSERT LENS,EX Right REMV CATARACT EXTRACAP,INSERT LENS Right 03/31/2003 REMV CATARACT EXTRACAP,INSERT LENS Left 02/17/2003 REVJ TOT HIP ARTHRP BTH W/WO AGRFT/ALGRFT Right 05/30/2011 ROTATOR CUFF REPAIR Right 2013 R rotator cuff repair TONSILLECTOMY HX TONSILLECTOMY PRIMARY/SECONDARY <AGE 10 Tonsillectomy TOTAL HIP JOINT REPLACEMENT Left 10/03/2014 Medications: Current Outpatient Medications Medication Sig lisinopril (ZESTRIL) 10 mg tablet Take 2 tablets by mouth once daily. TURMERIC ORAL Take by mouth. CAPSICUM, CAYENNE, ORAL Take by mouth. ascorbic acid/bioflavonoids (JENNIE C ORAL) Take by mouth. FLAXSEED OIL ORAL Take by mouth. GARLIC ORAL Take by mouth. Magnesium 250 mg tab Take 500 mg by mouth once daily. propylene glycol/peg 400 (SYSTANE ULTRA OPHTHALMIC) Use in eyes. Zinc 50 mg tab Take by mouth once daily. cranberry fruit extract (CRANBERRY ORAL) Take 650 mg by mouth once daily. LACTOBACILLUS ACIDOPHILUS (PROBIOTIC ACIDOPHILUS ORAL) Take by mouth. Cyanocobalamin 2,500 mcg subl Dissolve 1 tablet under the tongue once daily. cholecalciferol (VITAMIN D3) 5,000 unit tab Take 5,000 Units by mouth once daily. multivitamin ORAL tablet Take 1 tablet by mouth once daily. metoprolol succinate ER (TOPROL XL) 25 mg 24 hr tablet Take 0.5 tablets by mouth once daily. (Patient not taking: Reported on 06/23/2023) Current Facility-Administered Medications Medication Dose Route Frequency perflutren lipid microspheres 1.3 mL in NaCl (PF) 0.9% 10 mL injection (DEFINITY) INTRAVENOUS DIRECTED PRN sodium chloride 0.9 % (flush) 10 mL (BD POSIFLUSH) 10 mL INTRAVENOUS DIRECTED PRN Allergies: Adhesive Tape (Rosins), Bactrim [Sulfamethoxazole-Trimethoprim], Macrobid [Nitrofurantoin Monohyd/M-Cryst], and Bzrzuvi-Mnm-Pth Reductase Inhibitors ROS: General (negative for fatigue, malaise, weight loss/gain) HEENT (negative for headache, earache, recent vision changes, sinus pain, sore throat) Respiratory (no recent shortness of breath, hemoptysis) CV (negative for chest tightness, palpitations) Musculoskeletal (see HPI) Psych (no depression, anxiety) This note was partially generated using cube19 voice recognition system, and there may be some incorrect words, spellings, and punctuation that were not noted in checking the note before saving. Tamia Quezada PA-C * Aida Narayanan MA - 06/23/2023 9:45 AM EDT AMB ROOMING INTAKE FLOWSHEET DATA Pain Pain Level: 10 Pain Location: Knee-Left Description: Dull, Aching Duration Amount of Time: (ongoing) Frequency: Intermittent (only with weight bearing) Intervention/Comfort measure: Other: See comment (none) Patient here today for left knee pain. She states she fell in 2021, but did not come in to be seen.She would like an injection today. documented [facility] History of Present illness Narrative* Darlyn Rodgers RT(R) - 06/23/2023 9:30 AM EDT Radiology Service Progress Note PATIENT NAME: Behzad Hay DATE OF SERVICE: June 23, 2023 TIME: 9:46 AM PATIENT IDENTITY VERIFICATION COMPLETED USING TWO (2) IDENTIFIERS: Name and Date of confirmedby patient verbally. FALL SCREENING: Has the patient had 2 falls in the last year or 1 fall with injury or currently using an Ambulatory Assistive Device (Walker, Cane, Wheelchair, Crutches, etc.)? Yes, Patient High Riskfor Falls What interventions were put in place to prevent falls during this visit? Instructed Patient to Callfor Help if Needed, Offered Assistance with Transfers/Clothing, Instructed Patient to Remain Seated(Not on Exam Table) Until Exam, and Increased Observations by Caregivers PATIENT GENDER DATA: Female. status: : No status: NO. PATIENT RELEVANT IMPLANT DATA REVIEWED: Yes PATIENT PRESENTS WITH AN IMPLANTABLE OR ATTACHED CENTRIFUGAL EXTRACTOR OPERATOR: No RADIOLOGY DEPARTMENT: General X-ray: Exam(s) Completed: Lower Extremity X- Ray(s): Knee, AP / Lat / Tunne / Merchant Left PERIPHERAL IV DATA: Not applicable SIGNED BY: RT Edie(R) June 23, 2023 9:46 AM documented in this [facility]03-[facility]-2024 History of Present illness Narrative* Julee Becker, PT - 06/18/2023 10:46 AM EST Program_ID:[id number] Access Code: [email or web address] URL: [email or web address] Date: 06-18-2023 Prepared By: Juele Becker Program Notes Exercises - Seated Abdominal Press into Haitian Ball - 1 x daily - 7 x weekly - 4 sets - 12 reps - Seated March - 1 x daily - 7 x weekly - 4 sets - 12 reps - Seated Marching with Opposite Shoulder Flexion - 1 x daily - 7 x weekly - 4 sets - 12 reps * Julee Becker, PT - 06/18/2023 10:27 AM EST Episode Visit Count: 9 Therapist That Will Accept/Oversee The Plan Of Care: Julee Becker Start of Care Date: 04/16/23 Onset Date: 04/16/21 Plan of Care Certification Date: 05/21/23 Next Certification Due Date: 06/25/23 REHABILITATION AND SPORTS THERAPY PHYSICAL THERAPY TREATMENT NOTE ASSESSMENT: Behzad Hay tolerated the session with decreased symptoms. She demonstrated improvements in BP since attempting the last two sessions of PT. Pt. Was within parameters to participatein PT today. The patient will continue to benefit from ongoing skilled physical therapy to progresstoward set goals. Current Frequency: 1x/week PLAN FOR NEXT VISIT: SUBJECTIVE: Pt. reports that she checked her BP 3x this morning. The first measurement. Pt. took her BP medication when she awoke this morning. Pain: Pain Pain Level: 0 Pain Location: Back Post Treatment Pain Post Treatment Pain Level: 0 Post Treatment Pain Location: Back, Hip - Left, Hip - Right OBJECTIVE MEASURES WITH LEVEL OF FUNCTION: TREATMENT: Therapeutic Exercise: 1: seated TA activation 2x10 2: *Access Code: [email or web address] URL: [email or web address] Date: 06/18/2023 Prepared by: Julee Lyons Exercises - Seated Abdominal Press into Haitian Ball - 1 x daily - 7 x weekly - 4 sets - 12 reps - 10 hold - Seated [place] - 1 x daily - 7 x weekly - 4 sets - 12 reps - Seated Marchingwith Opposite Shoulder Flexion - 1 x daily - 7 x weekly - 4 sets - 12 reps - 1 hold 3: seated hip add with ball 4x15 4: sit <> stand with arms crossed 2x5, "[address] 5: seated LAQ 2x8 each side, 5 sec hold Skilled Intervention: Patient was educated in proper exercise technique and purpose for exercises. Skilled judgment was used in selection of appropriate interventions. Provided written instruction for home exercise program to facilitate proper performance and compliance. Correct performance of therapeutic exercises was facilitated with verbal, visual, and tactile cuing. Educated patient on rationale for performing exercises in regards to decreasing fatigue , increase ease of ADL, and ROM and function . Patient education as noted. Billing Therapeutic Exercise Treatment Minutes: 40 Skilled Treatment Time Minutes (timed and untimed codes): 40 Total Session Time (minutes): 40 Session Start Time : 1026 Session Stop Time : 1106 Julee Becker PT documented in this encounterK[facility]-27-2024 Miscellaneous Notes* Telephone Encounter - Marisa Campos RN - 06/10/2023 11:02 AM EST Patient notified of results. Patient verbalizes understanding. Marisa Campos RN * Telephone Encounter - Winsome Butler Ma - 06/10/2023 9:46 AM EST Left message for patient to return call. Winsome Butler Ma * Telephone Encounter - Winsome Butler Ma - 06/09/2023 5:19 PM EST ----- Message from Tasha Deutsch APRN.OUTREACH COORDINATOR sent at 06/09/2023 4:52 PM EST ----- Please let pt. Know that mild anemia is stable. Iron level and iron stores are normal. documented in this encounterK[facility]02-21-2024 History of Present illness Narrative* Julee Becker PT - 06/04/2023 10:24 AM EST PT held. BP 197/98 at rest. HR 80, SpO2 99% Same measurement taken manually after 10 min of seated rest. Pt. Denies symptoms. Instructed pt.to go to ED should she begin to develop symptoms or if BP continues to increase. Instructed pt. To monitor BP at home. PT contacted referring provider regarding vitals. Pt. To contact PCP for instruction regarding correct medications and dosage due to elevated BP again this visit. Julee Becker, PT, DPT documented in this encounterK[facility]02-19-2024 Instructions* Patient Instructions* Tasha Deutsch APRN.CNS - 06/02/2023 4:51 PM EST 1) Increase lisinopril to 2- 10mg tablets daily 2) Get labs done in 1 week 3) Schedule carotid ultrasound 4) See Adal in October as scheduled documented in this encounterK[facility]24 History of Present illness Narrative* Tasha Deutsch APRN.CNS - 06/02/2023 4:29 PM EST This is a 83 year old female who presents today with: Patient presents with: Recheck: 1 week follow up HISTORY OF PRESENT ILLNESS: Behzad Hay is a 83 year old female. Patient presents with: Recheck: 1 week follow up HTN: Patient is compliant with meds Yes Monitors bp at home: Yes. Denies side effects: chapped lips, eye bothering her, arthritis. Chest pain: No. Dyspnea: No. Edema: No. Palpitations: No. Syncope: No. Headache: No. Dizziness: No. Dizziness is better. Going to PT for arthritis. Making progress. PAST MEDICAL HISTORY: PAST MEDICAL HISTORY Diagnosis Date Abnormal CT of the abdomen 01/24/2014 localized perihepatic fluid indeterminate, 4mm density too small for ID, fusiforma sortic ectasia Anemia Arthritis Cerebral degeneration (HCC) Collagenous colitis Degenerative lumbar disc Dyslipidemia GERD (gastroesophageal reflux disease) H/O colonoscopy 09/23/2014 small internal hemorrhoids otherwise WNL. No further surveillance recommended Hiatal hernia [facility] HTN (hypertension) Hyperlipidemia, mixed Osteoarthritis Osteopenia PUD (peptic ulcer disease) 2013 Vitamin D deficiency PAST SURGICAL HISTORY Procedure Laterality Date BUNIONECTOMY, LAPIDUS-TYPE Left 03/30/2007 Dr. Beltran BUNIONECTOMY, LAPIDUS-TYPE Right 03/30/2008 Dr. Beltran CATARACT EXTRACTION W/ INTRAOCULAR LENS IMPLANT HX Left 03/31/2003 Dr. Sosa COLONOSCOPY 09/23/[address] Addy Enriquez, [place] internal hemorrhoids, otherwise WNL COLONOSCOPY FLX DX W/COLLJ SPEC WHEN PFRMD 09/01/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 Zoe Diana Normal esophagus, z-line, stomach and duodenum ESOPHAGOGASTRODUODENOSCOPY TRANSORAL DIAGNOSTIC 09/01/2020 EYE SURGERY HX INCISE FINGER TENDON SHEATH Right 12/26/2016 Right ring trigger finger release JOINT REPLACEMENT HX LAP UMBILICAL HERNIA REPAIR 02/24/2014 Umbilical hernia repair REMOVE CATARACT, INSERT LENS,EX Right REMV CATARACT EXTRACAP,INSERT LENS Right 03/31/2003 REMV CATARACT EXTRACAP,INSERT LENS Left 02/17/2003 REVJ TOT HIP ARTHRP BTH W/WO AGRFT/ALGRFT Right 05/30/2011 ROTATOR CUFF REPAIR Right 2013 R rotator cuff repair TONSILLECTOMY HX TONSILLECTOMY PRIMARY/SECONDARY <AGE 10 Tonsillectomy TOTAL HIP JOINT REPLACEMENT Left 10/03/2014 ALLERGIES Adhesive Tape (Rosins), Bactrim [Sulfamethoxazole-Trimethoprim], Macrobid [NitrofurantoinMonohyd/M-Cryst], and Ddaabvx-Aui-Dhz Reductase Inhibitors MEDICATIONS Current Outpatient Medications Medication Sig lisinopril (ZESTRIL) 10 mg tablet Take 1 tablet by mouth once daily. TURMERIC ORAL Take by mouth. CAPSICUM, CAYENNE, ORAL Take by mouth. metoprolol succinate ER (TOPROL XL) 25 mg 24 hr tablet Take 0.5 tablets by mouth once daily. ascorbic acid/bioflavonoids (JENNIE C ORAL) Take by mouth. FLAXSEED OIL ORAL Take by mouth. GARLIC ORAL Take by mouth. Magnesium 250 mg tab Take 500 mg by mouth once daily. propylene glycol/peg 400 (SYSTANE ULTRA OPHTHALMIC) Use in eyes. Zinc 50 mg tab Take by mouth once daily. cranberry fruit extract (CRANBERRY ORAL) Take 650 mg by mouth once daily. LACTOBACILLUS ACIDOPHILUS (PROBIOTIC ACIDOPHILUS ORAL) Take by mouth. Cyanocobalamin 2,500 mcg subl Dissolve 1 tablet under the tongue once daily. cholecalciferol (VITAMIN D3) 5,000 unit tab Take 5,000 Units by mouth once daily. multivitamin ORAL tablet Take 1 tablet by mouth once daily. Current Facility-Administered Medications Medication Dose Route Frequency perflutren lipid microspheres 1.3 mL in NaCl (PF) 0.9% 10 mL injection (DEFINITY) INTRAVENOUS DIRECTED PRN sodium chloride 0.9 % (flush) 10 mL (BD POSIFLUSH) 10 mL INTRAVENOUS DIRECTED PRN FAMILY HISTORY Problem Relation Age of Onset Cancer Mother Hypertension Mother other (CVA) Mother age 86 Heart Father other (CVA) Father age 81 Ischemic Heart Disease Brother age 76 other (CVA) Brother other (ADMISSIONS COUNSELOR shunt) Brother Hypertension Sister Diabetes Sister age 66 (sepsis) Social History Tobacco Use Smoking status: Never Smokeless tobacco: Never Vaping Use Vaping Use: Never used Substance Use Topics Alcohol use: No Drug use: No HOME readin/71, 70 131/63, 72 155/62, 63 121/91, 141/64, 63 148/63 132/66, 79 136/71, 64 138/76, 69 EXAM: BP 152/80 Pulse 78 Resp 16 SpO2 98% PHYSICAL EXAM: General Appearance: Well appearing, alert, in no acute distress, well-hydrated, well nourished.. Skin: Skin color, texture, turgor normal, no suspicious rashes or lesions. Head: Normocephalic, no masses, lesions, tenderness or abnormalities. Eyes: Anicteric sclera. Pupils are equally round and reactive to light. Extraocular movements are intact. . Nose/Sinuses:. Nasal turbinates smooth and pink, clear drainage Neck: Supple, no adenopathy; thyroid symmetric, normal size, no bruits, unable to hear right carotid bruit. Lungs: Lungs clear to auscultation. No wheezing, rhonchi, rales. Clear after cough. Heart: RRR without murmur, gallop, or rubs. No ectopy. Abdomen: Normal abdominal exam, Abdomen soft, non-tender. Bowel sounds normal. No masses, organomegaly. Musculoskeletal: No joint swelling, deformity, or tenderness. Neurologic: Gait normal. Reflexes normal and symmetric. Sensation grossly intact., cranial nerves III-XII intact, no ueganv-cz-hfuu ataxia. LABS: CT of head normal ASSESSMENT/PLAN: 1. DDD (degenerative disc disease), cervical - ICD9: 722.4, ICD10: M50.30 (primary diagnosis) Improving with PT - CBC + DIFF 2. Primary hypertension - ICD9: 401.9, ICD10: I10 - Uncontrolled - Recommend home blood pressure monitoring, to bring results to next visit - Encouraged sodium restriction, DASH or Mediterranean diet - Recommend regular aerobic exercise - LISINOPRIL 10 MG TABLET increased to 20mg daily - CBC + DIFF - COMP METABOLIC PANEL - MAGNESIUM BLD 3. Right carotid bruit - ICD9: 785.9, ICD10: R09.89 Get ultrasound of carotid as scheduled 4. Vitamin D deficiency - ICD9: 268.9, ICD10: E55.9 On OTC replacement - VITAMIN D 25 HYDROXY 5. Vitamin B12 deficiency - ICD9: 266.2, ICD10: E53.8 On OTC replacement - VITAMIN B12 BLOOD 6. Dizziness - ICD9: 780.4, ICD10: R42 Resolved - TSH BLD Follow up in October with PCP Discussed treatment plan and patient voices understanding. Patient's questions answered appropriately. Medications and potential side effects were discussed and patient voices understanding. Return to the office as scheduled or as needed for worsening/no improvement. Tasha Deutsch APRN.CNS The patient indicates understanding of these issues and agrees with the plan. documented in this encounterK[facility]02-14-2024 Miscellaneous Notes* Telephone Encounter - Breann Schmitz APRN.CNP - 05/28/2023 4:43 PM EST Noted. * Telephone Encounter - Zee Dominguez LPN - 05/28/2023 1:25 PM EST Patient called back in, she was able to get her BP. It was 111/73 with a pulse of 75. * Telephone Encounter - Dominic Buchanan LPN - 05/28/2023 1:10 PM EST TC to pt, notified of results/provider response. Pt states her blood pressure was to high at PT this morning so they sent her home. Pt states she came home and took her bp medication. Pt states she hasn't had any more dizzy episodes since her appt. Pt again states she text her PCP when she had the dizzy spells over the weekend and he told her to wean off of the metoprolol. Pt tried checking her bp while I had her on the phone and stated the machine err'd out. Advised pt to bring bp monitor withher to appt on 06/02. Dominic Buchanan LPN * Telephone Encounter - Breann Schmitz APRN.NICO - 05/28/2023 12:44 PM EST Can please let patient know that I received her CT results. There were no acute findings, just the chronic age-related changes. That is good news! Don't forget to schedule the carotid ultrasound. Howis she feeling? documented in this encounterK[facility]-14-2024 History of Present illness Narrative* Julee Becker, PT - 05/28/2023 10:25 AM EST BP: 191/97 HR: 86 SpO2: 100% Pt. Reports feeling dizzy Friday and contacting PCP. Pt. Advised to wean from metroprolol. Pt. Continued to have dizziness and vomited 2x due to dizziness. Pt. Seen by SALES DRIVER 05/26/23. Head CT negative and Carotid US ordered per chart. Reports that she has not taken her BP medication yet today or BP measurement yet today. Denies symptoms of light headedness or dizziness upon arrival. Pt. Advised by PT to continue medications as instructed by SALES DRIVER and PCP. Schedule and attend tests. Hold PT today due to high BP at rest. Plan was to complete balance activities today. Encouraged pt. To monitor her BP and go to ED should she become dizzy or vomit. Referring provider notified. Julee Becker PT, DPT documented in this encounterK[facility]02-13-2024 History of Present illness Narrative* Corinne Arreola RT(R) - 05/27/2023 1:40 PM EST Radiology Service Progress Note PATIENT NAME: Behzad Hay DATE OF SERVICE: May 27, 2023 TIME: 2:40 PM PATIENT IDENTITY VERIFICATION COMPLETED USING TWO (2) IDENTIFIERS: Name and Date of confirmedby patient verbally. FALL SCREENING: Has the patient had 2 falls in the last year or 1 fall with injury or currently using an Ambulatory Assistive Device (Walker, Cane, Wheelchair, Crutches, etc.)? No PATIENT GENDER DATA: female PATIENT RELEVANT IMPLANT DATA REVIEWED: Yes PATIENT PRESENTS WITH AN IMPLANTABLE OR ATTACHED CENTRIFUGAL EXTRACTOR OPERATOR: No RADIOLOGY DEPARTMENT: CT; Exam(s) Completed: Brain PERIPHERAL IV DATA: Not applicable SIGNED BY: RT Nilo(R) May 27, 2023 2:40 PM documented in this encounterK[facility]02-12-2024 Miscellaneous Notes* Telephone Encounter - Breann Schmitz APRN.CNP - 05/26/2023 8:08 PM EST See office note Breann Schmitz APRN.CNP * Telephone Encounter - Jose G Barker RN - 05/26/2023 8:53 AM EST Pt reports dizzy episodes once daily since Friday night. Reports she spoke to pcp yesterday via text, who advised her to wean off metoprolol- take every other day x's 2 then stop. Pt last dose of metoprolol was Sat. Reports pcp wants her to have a heart monitor. Had another dizzy episode this morning- lasted about 5 min. Yesterday morning vomited twice d/t dizziness. Pt drank 2 cups of water while on phone with nurse, and states she is not dizzy at all now, and feeling better and alert. Home BPreading this mornin/81, 176/88, HR 80. No CP. No SOB. Hx: a-fib. Protocol recommends see provider in 24 hours. Scheduled same day appt with SALES DRIVER, but advised to ER if has another dizzy episode. Pt agreeable. Pt states she will have her neighbor drive her to appt today. Reason for Disposition Taking a medicine that could cause dizziness (e.g., blood pressure medications, diuretics) Answer Assessment - Initial Assessment Questions 1. DESCRIPTION: Dizziness/lightheadedness every morning since Fri. Pt reports she texted FEDERICA Galeas, who instructed her to wean off metoprolol- take every other day for 2 x's then stop. Did nottake metoprolol yesterday. Last time took metoprolol was on Sat. Reports provider's found a-fib in Mar after she had a fall. 1st time had dizziness was Friday night while with friends. On Sat it happened in the morning- sat down and waited for it to pass- around 5 min. Feeling much better right now- no dizziness- sitting drinking water while taking to this nurse. Pt drank 2 cups of water while onthe phone, and states she feels better now- no dizziness- and feels more alert now. 2. LIGHTHEADED: Pt reports she is not lightheaded or dizzy right now, but was this morning for about 5 min, just sat down and drank herbal tea and it got better. Reports the dizziness yesterday morning caused her to vomit. Vomited twice yesterday morning. Reports she only drank about 2 cups of fluid the whole day yesterday. Advised she needs to get at least 6 - 8 cups of fluids daily. 3. VERTIGO: No 4. SEVERITY: Holds onto things when walking during dizzy spell. 5. ONSET: Last Friday. 6. AGGRAVATING FACTORS: Nothing makes it worse. Unsure if anything triggers it. 7. HEART RATE: Patient checked BP with home arm BP monitor while on phone: 186/81, 2nd time 176/88,HR around 80 both times. 8. CAUSE: No idea 9. RECURRENT SYMPTOM: Never. 10. OTHER SYMPTOMS: No CP. No SOB. Nausea and vomited twice on Friday d/t dizziness. No weakness. No numbness. Did not sleep good last night. Last urinated 30 min ago. Has dry lips. 11. : Post menopause. Protocols used: Dizziness - Chdmejhbpjxizyi-AHRED-RN documented in this encounterK[facility]02-12-2024 Miscellaneous Notes* Telephone Encounter - Winsome Butler Ma - 05/26/2023 3:45 PM EST Detailed message for patient left on voicemail to schedule either tomorrow at visit or call back. Phone number left. Winsome Butler Ma * Telephone Encounter - Breann Schmitz APRN.CNP - 05/26/2023 3:10 PM EST Please remind patient to schedule carotid duplex. Breann Schmitz APRN.CNP documented in this encounterK[facility]02-12-2024 Instructions* Patient Instructions* Breann Schmitz APRN.CNP - 05/26/2023 2:06 PM EST Start the lisinopril daily. Schedule the CT of the head. Schedule the carotid ultrasound. Recheck in 1 week. documented in this encounterK[facility]02-12-2024 History of Present illness Narrative* Breann Schmitz APRN.CNP - 05/26/2023 1:15 PM EST This is a 83 year old female who presents today with: Patient presents with: Dizziness HISTORY OF PRESENT ILLNESS: Behzad Hay is a 83 year old female. Patient presents with: Dizziness Pt presents today with complaint of some episodes of dizziness. Refers that she has had several epidoses. He first episode was Friday night -- unsure how long it lasted Friday morning -- lasted 4-5 minutes. Refers on Friday -- lasted greater than 5 minutes and had vomiting. Vomited 2-3 times. Refers really didn't eat/drink anything afterwards. Had another episode of dizziness this morning. Refers that lasted several minutes. No vomiting. See triage note -- BP 170's-180's. Describes dizziness as: Unable to get her balance. Weaving against the knight. Per triage note, question if she is taking her metoprolol. Refers she did take metoprolol today at lunch. She would like to stop it. Hx of wearing a holter monitor and paroxysmal a fib. Mod-high stroke risk. Refused anticoagulation. Did not follow-up w/ cardiology. She denies any dizziness currently. Denies any pain. Denies any n/t. Extremities working per normal. Swallowing okay. Speech per her normal. No SOB. No chest pain. No visual changes. No diaphoresis. PAST MEDICAL HISTORY: PAST MEDICAL HISTORY Diagnosis Date Abnormal CT of the abdomen 01/24/2014 localized perihepatic fluid indeterminate, 4mm density too small for ID, fusiforma sortic ectasia Anemia Arthritis Cerebral degeneration (HCC) Collagenous colitis Degenerative lumbar disc Dyslipidemia GERD (gastroesophageal reflux disease) H/O colonoscopy 09/23/2014 small internal hemorrhoids otherwise WNL. No further surveillance recommended Hiatal hernia History of [facility] ([facility]) [facility] HTN (hypertension) Hyperlipidemia, mixed Osteoarthritis Osteopenia PUD (peptic ulcer disease) 2014 Vitamin D deficiency PAST SURGICAL HISTORY Procedure Laterality Date BUNIONECTOMY, LAPIDUS-TYPE Left 03/30/2007 Dr. Devin LOPEZCTOMY, LAPIDUS-TYPE Right 03/30/2008 Dr. Beltran CATARACT EXTRACTION W/ INTRAOCULAR LENS IMPLANT HX Left 03/31/2003 Dr. Sosa COLONOSCOPY 09/23/[address] Addy Enriquez [place] internal hemorrhoids, otherwise WNL COLONOSCOPY FLX DX W/COLLJ SPEC WHEN PFRMD 09/01/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 Zoe Diana Normal esophagus, z-line, stomach and duodenum ESOPHAGOGASTRODUODENOSCOPY TRANSORAL DIAGNOSTIC 09/01/2020 EYE SURGERY HX INCISE FINGER TENDON SHEATH Right 12/26/2016 Right ring trigger finger release JOINT REPLACEMENT HX LAP UMBILICAL HERNIA REPAIR 02/24/2014 Umbilical hernia repair REMOVE CATARACT, INSERT LENS,EX Right REMV CATARACT EXTRACAP,INSERT LENS Right 03/31/2003 REMV CATARACT EXTRACAP,INSERT LENS Left 02/17/2003 REVJ TOT HIP ARTHRP BTH W/WO AGRFT/ALGRFT Right 05/30/2011 ROTATOR CUFF REPAIR Right 2013 R rotator cuff repair TONSILLECTOMY HX TONSILLECTOMY PRIMARY/SECONDARY <AGE 10 Tonsillectomy TOTAL HIP JOINT REPLACEMENT Left 10/03/2014 ALLERGIES Adhesive Tape (Rosins), Bactrim [Sulfamethoxazole-Trimethoprim], Macrobid [NitrofurantoinMonohyd/M-Cryst], and Dctyicf-Bnl-Izz Reductase Inhibitors MEDICATIONS Current Outpatient Medications Medication Sig TURMERIC ORAL Take by mouth. CAPSICUM, CAYENNE, ORAL Take by mouth. metoprolol succinate ER (TOPROL XL) 25 mg 24 hr tablet Take 0.5 tablets by mouth once daily. ascorbic acid/bioflavonoids (JENNIE C ORAL) Take by mouth. FLAXSEED OIL ORAL Take by mouth. GARLIC ORAL Take by mouth. Magnesium 250 mg tab Take 500 mg by mouth once daily. propylene glycol/peg 400 (SYSTANE ULTRA OPHTHALMIC) Use in eyes. Zinc 50 mg tab Take by mouth once daily. cranberry fruit extract (CRANBERRY ORAL) Take 650 mg by mouth once daily. LACTOBACILLUS ACIDOPHILUS (PROBIOTIC ACIDOPHILUS ORAL) Take by mouth. Cyanocobalamin 2,500 mcg subl Dissolve 1 tablet under the tongue once daily. cholecalciferol (VITAMIN D3) 5,000 unit tab Take 5,000 Units by mouth once daily. multivitamin ORAL tablet Take 1 tablet by mouth once daily. Current Facility-Administered Medications Medication Dose Route Frequency perflutren lipid microspheres 1.3 mL in NaCl (PF) 0.9% 10 mL injection (DEFINITY) INTRAVENOUS DIRECTED PRN sodium chloride 0.9 % (flush) 10 mL (BD POSIFLUSH) 10 mL INTRAVENOUS DIRECTED PRN FAMILY HISTORY Problem Relation Age of Onset Cancer Mother Hypertension Mother other (CVA) Mother age 86 Heart Father other (CVA) Father age 81 Ischemic Heart Disease Brother age 76 other (CVA) Brother other (ADMISSIONS COUNSELOR shunt) Brother Hypertension Sister Diabetes Sister age 66 (sepsis) Social History Tobacco Use Smoking status: Never Smokeless tobacco: Never Vaping Use Vaping Use: Never used Substance Use Topics Alcohol use: No Drug use: No EXAM: BP 176/84 Pulse 73 Resp 16 SpO2 96% PHYSICAL EXAM: General Appearance: Well appearing, alert, in no acute distress, well-hydrated, well nourished.. Skin: Skin color, texture, turgor normal, no suspicious rashes or lesions. Head: Normocephalic, no masses, lesions, tenderness or abnormalities. Eyes: Anicteric sclera. Pupils are equally round and reactive to light. Extraocular movements are intact. . Oropharynx: Lips, mucosa, and tongue normal, teeth and gums normal, oropharynx normal. Neck: Supple, no adenopathy; right carotid bruit. Lungs: Lungs clear to auscultation. No wheezing, rhonchi, rales.. Heart: RRR without murmur, gallop, or rubs. No ectopy. Abdomen: Abdomen soft, non-tender. Bowel sounds normal. No masses, organomegaly. Extremities: No deformities, edema, skin discoloration, clubbing or cyanosis. Good capillary refill. Neurologic: Gait normal w/ cane. = strength of extremities. Equal sensation. ASSESSMENT/PLAN: 1. Primary hypertension - ICD9: 401.9, ICD10: I10 (primary diagnosis) - Uncontrolled - Worsening control - Continue current medications - Start lisinopril - Recommend home blood pressure monitoring, to bring results to next visit - Encouraged sodium restriction, DASH or Mediterranean diet - Recommend regular aerobic exercise 2. Transient cerebral ischemia, unspecified type - ICD9: 435.9, ICD10: G45.9 Concern that pt with hx of a fib, hyperlipidemia, uncontrolled HTN -- get CT to r/o TIA/CVA. - CT BRAIN WO IVCON 3. Dizziness - ICD9: 780.4, ICD10: R42 As above. Discussed w/ patient that if she had any recurrence of symptoms, she should proceed to the ER. 4. Right carotid bruit - ICD9: 785.9, ICD10: R09.89 - US CAROTID ARTERIES [facility] Discussed treatment plan and patient voices understanding. Patient's questions answered appropriately. Medications and potential side effects were discussed and patient voices understanding. Return to the office as scheduled or as needed for worsening/no improvement. Breann Schmitz APRN.AVIATION ELECTRONIC WARFARE OPERATOR documented in this encounterKet[facility]02-07-2024 History of Present illness Narrative* Julee Becker, PT - 05/21/2023 10:48 AM EST Program_ID:[id number] Access Code: [email or web address] URL: [email or web address] Date: 05-21-2023 Prepared By: Julee Becker Program Notes Exercises - Seated Lumbar Flexion Stretch - 2-3 x daily - 7 x weekly - 3 sets - 10 reps - Seated Transversus Abdominis Bracing with PLB - 2-3 x daily - 7 x weekly - 2 sets - 10 reps * Julee Becker, PT - 05/21/2023 10:28 AM EST Episode Visit Count: 6 Therapist That Will Accept/Oversee The Plan Of Care: Julee Becker Start of Care Date: 04/16/23 Onset Date: 04/16/21 Plan of Care Certification Date: 05/21/23 Next Certification Due Date: 06/25/23 [facility]ERAPY PHYSICAL THERAPY DISCONTINUANCE OF CARE PLAN OF CARE UPDATE: Assessment: Behzad Hay demonstrates improvements in car transfers, rising from a chair, standing, walking, walking in the house, and walking in the community. She has progressed toward goals. Patient continues to present with impairments in ADL's, flexibility, gait, independence in exercise, joint mobility, overall function, patient reported outcome measures, range of motion, strength, and symptom management that interfere with walking, rising from a chair, walking in the community (difficulty with car transfers) . Current prognosis is Good due to: current objective clinical presentation, positivepast response to therapy, within-session changes, good support system/ coping skills . She will benefit from continued skilled therapy services to meet the updated goals for this plan of care as noted below. Goals for Episode of Care: created on 04/16/23 through 05/28/23 Goals updated on 05/21/2023 through 06/25/23 Independent in a Home Exercise Program. -- MET Patient will decrease pain rating by 2 points to meet minimal clinical important difference for numeric pain rating scale. -- MET Patient will decrease pain to 1-2/10 with functional activities to allow patient to improve transfers. -- MET Restore pain free R shoulder AROM to 160 or greater to allow for reaching overhead. -- MET Maintain proper sitting posture throughout the session to allow for reduced cervical spine or shoulder pain. -- PARTIALLY MET Patient Goals: reduce neck, shoulder, and hip pain. -- PROGRESSING UPDATED: Pt. Will complete car transfers with reports of less difficulty due to weakness. Pt. Will amb 50' with SC and SBA without increased LBP or B hip pain from baseline. Patient Goals: UPDATED: walk across the room without increased LB or B hip pain Planned Interventions, Frequency, and Duration: 1x/week, 5 weeks Total Number of Visits Planned: 5 Patient to be seen for Therapeutic activities (79074), Manual therapy (08731), Self-custodial management (09210), Gait Training (27967), Therapeutic exercise (66301), Neuromuscular re-education (99046) PLAN FOR NEXT VISIT: address back and hip pain. dc shoulder and neck. core stabilization seated TA exercises SUBJECTIVE: Pt. reports no neck or shoulder pain. Only has R shoulder pain with repeated or prolonged use. She applies pressure to neck on TrP and this resolves neck pain quickly when she does have it. She does have increased R back and B hip pain today. She would like to continue PT to focus on Back and R hip.. Patient Goals: UPDATED: walk across the room without increased LB or B hip pain Functional Limitations: walking, rising from a chair, walking in the community (difficulty with cartransfers) Pain: Pain Pain Level: 0 Pain Location: Neck, Back, Shoulder - Right Pain Level 2: 5 Pain Location 2: Low Back/Lumbar Spine - Right, Hip - Left, Hip - Right Post Treatment Pain Post Treatment Pain Level: 0 Post Treatment Pain Location: Low Back/Lumbar Spine - Right, Hip - Right, Hip - Left PROMIS Scales Higher is Better 05/21/2023 04/16/2023 Phys Func - Score 42 (mild dysfunction) 40 (mild dysfunction) Phys Func - Percentile 21% 16% Self-Eff Symptom - Score 56 (Average) 42 (Average) Self-Eff Symptom - Percentile 73% 21% T-scores: mean of general population = 50. 5 points is clinically meaningfully difference Percentiles provide an indication of how the patient's score ranks in relation to the general population. Higher percentile rankings indicate better function/quality of life. 50th percentile is the average of the general population and indicates half of respondents had a worse score. OBJECTIVE MEASURES WITH LEVEL OF FUNCTION: Lumbar Spine AROM Lumbar Flexion: Normal, Decreased pain Lumbar Extension: Major limitation, Produces Repeated Test Movements - Lumbar Other Lumbar Repeated Test Movements: Yes Other Repeated Test Movements - Lumbar RFISit / Symptoms During: abolishes RFISit / Symptoms After: better UE PROM R Shoulder Flex: 164 Degrees TREATMENT: Therapeutic Exercise: 1: seated R shoulder flexion 1x 2: *Access Code: [email or web address] URL: [email or web address] Date: 05/21/2023 Prepared by: Julee Lyons Exercises - Seated Lumbar Flexion Stretch - 2-3 x daily - 7 x weekly - 3 sets - 10 reps - 1 hold - Seated Transversus Abdominis Bracing with PLB - 2-3 x daily - 7 x weekly - 2 sets - 10 reps - 1 hold 3: standing lumbar flexion 2x 4: standing lumbar extension upright, without cane - no pain reported after repeated lumbar flexionseated as compared to pain reported initially 5: seated TA activation with alt LE raises 2x10 Skilled Intervention: Patient was educated in proper exercise technique and purpose for exercises. Skilled judgment was used in selection of appropriate interventions. Provided written instruction for home exercise program to facilitate proper performance and compliance. Correct performance of therapeutic exercises was facilitated with verbal, visual, and tactile cuing. Educated patient on rationale for performing exercises in regards to decreasing fatigue , increase ease of ADL, and ROM and function . Patient education as noted. Self-Assisted Management: 1: discussed directional preference and flexion increasing the diameter of the intervertebral foramen - reducing radiating symptoms 2: discussed chair selection to support lumbar spine Skilled Intervention: Skilled judgment in the selection of proper modification for activity of daily living/home management based on clinical presentation, deficits, and needs. Provided written instruction for activities of daily living techniques to facilitate proper performance and compliance. Reviewed patient specific diagnosis in relation to activities of daily living/home management. Activity progression based on professional judgement. Moderate verbal cues for maintaining neutral spine alignment. Reviewed and educated patient on additions/changes for home program as noted above with an (*). Provided written instruction for home program to facilitate proper performance and compliance. Correct performance of home program was facilitated with verbal, visual, and tactile cueing. Billing Therapeutic Exercise Treatment Minutes: 30 Self-Care/Home Management Treatment Minutes: 10 Skilled Treatment Time Minutes (timed and untimed codes): 40 Total Session Time (minutes): 40 Session Start Time : 1027 Session Stop Time : 1107 Julee Becker PT documented in this [facility]12-18-2023 History of Present illness Narrative* Mariella Newell RT(R) - 03/31/2023 11:20 AM EST Radiology Service Progress Note PATIENT NAME: Behzad Hay DATE OF SERVICE: March 31, 2023 TIME: 11:45 AM PATIENT IDENTITY VERIFICATION COMPLETED USING TWO (2) IDENTIFIERS: Name and Date of confirmedby patient verbally. FALL SCREENING: Has the patient had 2 falls in the last year or 1 fall with injury or currently using an Ambulatory Assistive Device (Walker, Cane, Wheelchair, Crutches, etc.)? No PATIENT GENDER DATA: Female. status: : No status: NO. PATIENT RELEVANT IMPLANT DATA REVIEWED: Yes RADIOLOGY DEPARTMENT: General X-ray: Exam(s) Completed: Upper Extremity X- Ray(s): Shoulder, AP / TRUE AP right PERIPHERAL IV DATA: Not applicable SIGNED BY: RT Mary Alice(R) March 31, 2023 11:45 AM documented in this [facility] History of Present illness Narrative* Sandra Horne MD - 12/30/2022 3:25 PM EDT Images from the original note were not included. Sandra Horne MD Interventional Cardiology [facility] [address], [place] [address] [phone] Chief Complaint Patient presents with: Consult HISTORY OF PRESENT ILLNESS: Ms. Hay is a 82 year old female in my office today for assessment and management of paroxysmal atrial fibrillation patient had no cardiac history in the past she was seen at [place] [facility] because of atrial fibrillation that was in March [id number] she is having recurrent episodes of lightheadedness Holter monitor shows 5.5 hours of paroxysmal atrial fibrillation burden hypertensive poorly controlled today blood pressures in the office is 190/94 No angina No symptoms or signs of congestive heart failure Cardiac Risk Factors age (male over 45, female over 55), hypertension, family history of CAD PAST MEDICAL HISTORY Diagnosis Date Abnormal CT of the abdomen 01/24/2014 localized perihepatic fluid indeterminate, 4mm density too small for ID, fusiforma sortic ectasia Anemia Arthritis Cerebral degeneration (HCC) Collagenous colitis Degenerative lumbar disc Dyslipidemia GERD (gastroesophageal reflux disease) H/O colonoscopy 09/23/2014 small internal hemorrhoids otherwise WNL. No further surveillance recommended Hiatal hernia History of esophagogastroduodenoscopy (EGD) 09/23/2014 [facility]: All normal HTN (hypertension) Hyperlipidemia, mixed Osteoarthritis Osteopenia PUD (peptic ulcer disease) 2013 Vitamin D deficiency PAST SURGICAL HISTORY Procedure Laterality Date BUNIONECTOMY, LAPIDUS-TYPE Left 03/30/2007 Dr. Beltran BUNMONICACTOMY, LAPIDUS-TYPE Right 03/30/2008 Dr. Beltran CATARACT EXTRACTION W/ INTRAOCULAR LENS IMPLANT HX Left 03/31/2003 Dr. Sosa COLONOSCOPY 09/23/2014 colonoscopy Samara Rodarte internal hemorrhoids, otherwise WNL COLONOSCOPY FLX DX W/COLLJ SPEC WHEN PFRMD 09/01/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 Greenwalt [place] Normal esophagus, z-line, stomach and duodenum ESOPHAGOGASTRODUODENOSCOPY TRANSORAL DIAGNOSTIC 09/01/2020 EYE SURGERY HX INCISE FINGER TENDON SHEATH Right 12/26/2016 Right ring trigger finger release JOINT REPLACEMENT HX LAP UMBILICAL HERNIA REPAIR 02/24/2014 Umbilical hernia repair REMOVE CATARACT, INSERT LENS,EX Right REVJ TOT HIP ARTHRP BTH W/WO AGRFT/ALGRFT Right 05/30/2011 ROTATOR CUFF REPAIR Right 2013 R rotator cuff repair TONSILLECTOMY HX TONSILLECTOMY PRIMARY/SECONDARY <AGE 12 Tonsillectomy TOTAL HIP JOINT REPLACEMENT Left 10/03/2014 FAMILY HISTORY Problem Relation Age of Onset Cancer Mother Hypertension Mother other (CVA) Mother age 86 Heart Father other (CVA) Father age 81 Ischemic Heart Disease Brother age 76 other (CVA) Brother other (ADMISSIONS COUNSELOR shunt) Brother Hypertension Sister Diabetes Sister age 66 (sepsis) Social History Tobacco Use Smoking status: Never Smokeless tobacco: Never Vaping Use Vaping Use: Never used Substance Use Topics Alcohol use: No Drug use: No ALLERGIES Allergen Reactions Adhesive Tape (Tati* Rash Bactrim [Sulfametho* Rash Macrobid [Nitrofura* Rash Mrffsyx-Mfn-Cms Red* Intolerance Medications: Current Outpatient Medications Medication Sig Dispense Refill ascorbic acid/bioflavonoids (JENNIE C ORAL) Take by mouth. FLAXSEED OIL ORAL Take by mouth. GARLIC ORAL Take by mouth. Magnesium 250 mg tab Take 500 mg by mouth once daily. propylene glycol/peg 400 (SYSTANE ULTRA OPHTHALMIC) Use in eyes. calcium carb and citrat-mag ox 200 mg calcium- 50 mg tab Take 1 tablet by mouth twice daily. Pt reports magnesium calcium citrate combination tablet 1 tablet two times daily Zinc 50 mg tab Take by mouth once daily. cranberry fruit extract (CRANBERRY ORAL) Take 650 mg by mouth once daily. acetaminophen (TYLENOL EXTRA STRENGTH ORAL) Take 2 tablets by mouth twice daily. LACTOBACILLUS ACIDOPHILUS (PROBIOTIC ACIDOPHILUS ORAL) Take by mouth. aspirin, enteric coated (ASPIRIN, ENTERIC COATED) 81 mg EC tablet Take 1 tablet by mouth once daily. 0 Cyanocobalamin 2,500 mcg subl Dissolve 1 tablet under the tongue once daily. 0 cholecalciferol (VITAMIN D3) 5,000 unit tab Take 5,000 Units by mouth once daily. multivitamin ORAL tablet Take 1 tablet by mouth once daily. Current Facility-Administered Medications Medication Dose Route Frequency Provider Last Rate Last Admin perflutren lipid microspheres 1.3 mL in NaCl (PF) 0.9% 10 mL injection (DEFINITY) INTRAVENOUS DIRECTED PRN Jose G Harrington PA-C sodium chloride 0.9 % (flush) 10 mL (BD POSIFLUSH) 10 mL INTRAVENOUS DIRECTED PRN Jose G Harrington PA-C Review of Systems Constitutional: Negative for chills, diaphoresis, fever, malaise/fatigue and weight loss. HENT: Negative for congestion, ear discharge, ear pain, hearing loss, nosebleeds, sinus pain, sore throat and tinnitus. Eyes: Negative for blurred vision, double vision, photophobia, pain, discharge and redness. Respiratory: Negative for cough, hemoptysis, sputum production, shortness of breath, wheezing and stridor. Cardiovascular: Negative for chest pain, palpitations, orthopnea, claudication, leg swelling and PND. Gastrointestinal: Negative for abdominal pain, blood in stool, constipation, diarrhea, heartburn, melena, nausea and vomiting. Genitourinary: Negative for dysuria, flank pain, frequency, hematuria and urgency. Musculoskeletal: Negative for back pain, falls, joint pain, myalgias and neck pain. Skin: Negative for itching and rash. Neurological: Negative for dizziness, tingling, tremors, sensory change, speech change, focal weakness, seizures, loss of consciousness, weakness and headaches. Endo/Heme/Allergies: Negative for environmental allergies and polydipsia. Does not bruise/bleed easily. Psychiatric/Behavioral: Negative for depression, hallucinations, memory loss, substance abuse and suicidal ideas. The patient is not nervous/anxious and does not have insomnia. Physical Examination: Vitals:BP 197/94 Pulse 74 Wt 115 lb (52.2kg) SpO2 98% BP w/Orthostatic Vitals Date and Time Orthostatic BP Orthostatic Pulse BP Pulse BP Position BP Site BP Cuff Size 12/30/22 1507 -- -- 197/94 74 Sitting Left Arm Regular Adult Last 2 Encounter Wt Readings: Date: Wt: 12/30/2022 52.2 kg (115 lb) 10/24/2022 52.2 kg (115 lb) Physical Exam Constitutional: General: She is not in acute distress. Appearance: She is not diaphoretic. HENT: Head: Normocephalic and atraumatic. Right Ear: External ear normal. Left Ear: External ear normal. Nose: Nose normal. Mouth/Throat: Mouth: Mucous membranes are moist. Eyes: General: Right eye: No discharge. Left eye: No discharge. Conjunctiva/sclera: Conjunctivae normal. Pupils: Pupils are equal, round, and reactive to light. Cardiovascular: Rate and Rhythm: Normal rate and regular rhythm. Heart sounds: Normal heart sounds, S1 normal and S2 normal. No murmur heard. No friction rub. No gallop. No S3 or S4 sounds. Pulmonary: Effort: Pulmonary effort is normal. No respiratory distress. Breath sounds: Normal breath sounds. No wheezing or rales. Chest: Chest wall: No tenderness. Musculoskeletal: General: Normal range of motion. Cervical back: Normal range of motion and neck supple. Skin: General: Skin is warm and dry. Neurological: Mental Status: She is alert and oriented to person, place, and time. Psychiatric: Mood and Affect: Mood normal. Pertinent Labs: CBC: Hemoglobin (g/dL) Date Value 10/11/2022 12.7 01/09/2021 10.0 Hematocrit (%) Date Value 10/11/2022 40.4 01/09/2021 34.3 WBC (k/uL) Date Value 10/11/2022 5.97 01/09/2021 4.95 Platelet Count (k/uL) Date Value 10/11/2022 351 01/09/2021 394 BMP: Glucose (mg/dL) Date Value 10/11/2022 99 09/04/2020 73 Potassium (mmol/L) Date Value 10/11/2022 4.9 09/04/2020 4.1 Sodium (mmol/L) Date Value 10/11/2022 143 09/04/2020 141 Chloride (mmol/L) Date Value 10/11/2022 104 09/04/2020 103 CO2 (mmol/L) Date Value 10/11/2022 30 09/04/2020 29 Creatinine (mg/dL) Date Value 10/11/2022 0.90 09/04/2020 0.86 BUN (mg/dL) Date Value 10/11/2022 16 09/04/2020 14 Anion Gap (mmol/L) Date Value 10/11/2022 9 09/04/2020 9 Calcium (mg/dL) Date Value 09/04/2020 9.6 Calcium, Total (mg/dL) Date Value 10/11/2022 9.9 INR: Lipid Profile: Cholesterol, Total Date Value Ref Range Status 10/11/2022 241 (H) <200 mg/dL Final Comment: <200 mg/dL, Desirable 200-239 mg/dL, Borderline high >239 mg/dL, High HDL Cholesterol Date Value Ref Range Status 10/11/2022 72 >39 mg/dL Final Comment: 40-59 mg/dL, Acceptable >59 mg/dL, High: Negative risk factor for coronary heart disease <40 mg/dL, Low: Positive risk factor for coronary heart disease LDL Cholesterol Date Value Ref Range Status 10/11/2022 140 (H) <100 mg/dL Final Comment: <100 mg/dL, Optimal 100-129 mg/dL, Near optimal/above optimal 130-159 mg/dL, Borderline high 160-189 mg/dL, High >189 mg/dL, Very high Secondary prevention optimal LDL Cholesterol levels are recommended to be < 70 mg/dL Triglyceride Date Value Ref Range Status 10/11/2022 146 <150 mg/dL Final Comment: <150 mg/dL, Normal 150-199 mg/dL, Borderline high 200-499 mg/dL, High >499 mg/dL, Very high Hemoglobin A1C: No results found for: "HGBA1C" TSH: No results found for: "TSHREFL" Prior Cardiac Testing EKG Assessment and Plan: 82-year-old adult with poorly controlled hypertension and paroxysmal atrial fibrillation .ASSESSMENT/PLAN: 1. Paroxysmal atrial fibrillation (HCC) - ICD9: 427.31, ICD10: I48.0 (primary diagnosis) Based on the score she is at moderate to high risk of stroke which is about 3.2 %/year recommend anticoagulation Eliquis 2.5 mg twice a day Patient absolutely refused taking any medication for her risk reduction for stroke she is going to think about it for the time being - ECG COMPLETE 2. Primary hypertension - ICD9: 401.9, ICD10: I10 - Uncontrolled - Recommend home blood pressure monitoring, to bring results to next visit Recommend starting beta-coleman metoprolol 25 XL once a day - Encouraged sodium restriction, DASH or Mediterranean diet - Recommend regular aerobic exercise - Follow up in 4 weeks for hypertension visit During this visit patient is very clearly refused to take any medication for atrial fibrillation and hypertension which is both conditions unrelated to each other we will think about it at home and discussed with her daughter For follow-up finalized the medical plan Sandra Horne MD Follow up plannin to 6 weeks Electronically signed by Sandra Horne MD on December 30, 2022, 3:25 PM The above note was partially created using a dictation recognition software. A reasonable attempt has been made to correct any errors. documented in this [facility]-2023 Instructions* Patient Instructions* Jose G Harrington PA-C - 10/24/2022 9:34 AM EDT Avoid use of Q-tips inside the ear canal as it tends to push wax in deeper, and the irritation of scraping the ear canal may produce more wax. Imagine trying to get was out of a test-tube with a cotton swab. It doesn't work. Wax is a natural protection for your ear canal. It does not need to be removed unless it is causingproblems. The skin inside your ear canal grows to the outside, so anything in the ear canal will eventually be pushed forward to the outside. If the ear becomes plugged again it is best to come for an exam and have wax confirmed and removed. OTC drops such as Debrox may help to loosen wax, but are unlikely to remove it and may cause more irritation. Over the next few days if there is any pain or discharge from the ear, call the office. See sheet on shoulder rehab exercises. Don't do anything that really hurts. documented in this [facility]23 History of Present illness Narrative* Jose G Harrington PA-C - 10/24/2022 9:15 AM EDT 82 year old female with c/o right ear feels plugged, annoying. Feels got worse with cold air from AC in car which also made her right shoulder and lateral neck hurt.. Denies numbness, tingling, loss of sensation. No loss of strength or function. HISTORIES FAMILY HISTORY Problem Relation Age of Onset Cancer Mother Hypertension Mother other (CVA) Mother age 86 Heart Father other (CVA) Father age 81 Ischemic Heart Disease Brother age 76 other (CVA) Brother other (ADMISSIONS COUNSELOR shunt) Brother Hypertension Sister Diabetes Sister age 66 (sepsis) PAST MEDICAL HISTORY Diagnosis Date Abnormal CT of the abdomen 01/24/2014 localized perihepatic fluid indeterminate, 4mm density too small for ID, fusiforma sortic ectasia Anemia Arthritis Cerebral degeneration (HCC) Collagenous colitis Degenerative lumbar disc Dyslipidemia GERD (gastroesophageal reflux disease) H/O colonoscopy 09/23/2014 small internal hemorrhoids otherwise WNL. No further surveillance recommended Hiatal hernia History of esophagogastroduodenoscopy (EGD) 09/23/2014 [facility]: All normal HTN (hypertension) Hyperlipidemia, mixed Osteoarthritis Osteopenia PUD (peptic ulcer disease) 2013 Vitamin D deficiency PAST SURGICAL HISTORY Procedure Laterality Date BUNIONECTOMY, LAPIDUS-TYPE Left 03/30/2007 Dr. Devin CARLIONECTOMY, LAPIDUS-TYPE Right 03/30/2008 Dr. Beltran CATARACT EXTRACTION W/ INTRAOCULAR LENS IMPLANT HX Left 03/31/2003 Dr. Sosa COLONOSCOPY 09/23/2014 colonoscopy Samara Rodarte internal hemorrhoids, otherwise WNL COLONOSCOPY FLX DX W/COLLJ SPEC WHEN PFRMD 09/01/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 Zoe Diana Normal esophagus, z-line, stomach and duodenum ESOPHAGOGASTRODUODENOSCOPY TRANSORAL DIAGNOSTIC 09/01/2020 EYE SURGERY HX INCISE FINGER TENDON SHEATH Right 12/26/2016 Right ring trigger finger release JOINT REPLACEMENT HX LAP UMBILICAL HERNIA REPAIR 02/24/2014 Umbilical hernia repair REMOVE CATARACT, INSERT LENS,EX Right REVJ TOT HIP ARTHRP BTH W/WO AGRFT/ALGRFT Right 05/30/2011 ROTATOR CUFF REPAIR Right 2013 R rotator cuff repair TONSILLECTOMY HX TONSILLECTOMY PRIMARY/SECONDARY <AGE 10 Tonsillectomy TOTAL HIP JOINT REPLACEMENT Left 10/03/2014 Social History Tobacco Use Smoking status: Never Smokeless tobacco: Never Vaping Use Vaping Use: Never used Substance Use Topics Alcohol use: No Drug use: No ACTIVE PROBLEM LIST Trigger Ring Finger of Right Hand Injury of Extensor Tendon of Hand Spontaneous Rupture of Extensor Tendon of Left Hand Acquired Trigger Finger Chronic Renal Insufficiency, Stage 3 (Moderate) ([facility]) Vitamin D Deficiency Ddd (Degenerative Disc Disease), Cervical Primary Osteoarthritis of Right Hip Collagenous Colitis Ibs (Irritable Bowel Syndrome) Hiatal Hernia Fall From Standing Rotator Cuff Tear Arthropathy, Left Paroxysmal Atrial Fibrillation ([facility]) Current Outpatient Medications Medication Sig Dispense Refill ascorbic acid/bioflavonoids (JENNIE C ORAL) Take by mouth. FLAXSEED OIL ORAL Take by mouth. GARLIC ORAL Take by mouth. Magnesium 250 mg tab Take 500 mg by mouth once daily. propylene glycol/peg 400 (SYSTANE ULTRA OPHTHALMIC) Use in eyes. calcium carb and citrat-mag ox 200 mg calcium- 50 mg tab Take 1 tablet by mouth twice daily. Pt reports magnesium calcium citrate combination tablet 1 tablet two times daily Zinc 50 mg tab Take by mouth once daily. cranberry fruit extract (CRANBERRY ORAL) Take 650 mg by mouth once daily. acetaminophen (TYLENOL EXTRA STRENGTH ORAL) Take 2 tablets by mouth twice daily. LACTOBACILLUS ACIDOPHILUS (PROBIOTIC ACIDOPHILUS ORAL) Take by mouth. aspirin, enteric coated (ASPIRIN, ENTERIC COATED) 81 mg EC tablet Take 1 tablet by mouth once daily. 0 Cyanocobalamin 2,500 mcg subl Dissolve 1 tablet under the tongue once daily. 0 cholecalciferol (VITAMIN D3) 5,000 unit tab Take 5,000 Units by mouth once daily. multivitamin ORAL tablet Take 1 tablet by mouth once daily. Current Facility-Administered Medications Medication Dose Route Frequency Provider Last Rate Last Admin perflutren lipid microspheres 1.3 mL in NaCl (PF) 0.9% 10 mL injection (DEFINITY) INTRAVENOUS DIRECTED PRN Jose G Harrington PA-C sodium chloride 0.9 % (flush) 10 mL (BD POSIFLUSH) 10 mL INTRAVENOUS DIRECTED PRN Jose G Harrington PA-C There are no preventive care reminders to display for this patient. EXAM: BP 142/76 Pulse 80 Resp 16 Wt 52.2 kg (115 lb) SpO2 98% BMI 21.38 kg/m Pleasant adult woman in no acute distress. Alert and oriented all spheres. Normal affect and cognition. Speech normal. No deficits to learning or comprehension. Skin warm, dry, pink to lips and nailbeds. Normal turgor. Respirations regular and unlabored. Head: Normocephalic Eyes: sclerae and conjunctivae without injection or exudate, PERRLA, EOMI, corneal light reflex symmetric bilaterally Ears: Right ear canal with easily removed obstructing cerumen visible with lighted curette with resolution hearing loss. Afterwards, tiny amount of blood noted at meatus, both TM's and ear canals areotherwise clear bilaterally with normal landmarks, no swelling or deformity external ear. No tenderness with tragal pressure. Nose/Sinuses: Nose patent. No turbinate swelling. No active exudate. Maxillary and frontal sinuses nontender to percussion. Neck supple with limited ROM per usual.TTPs in right supraspinatus, brachioradialis, teres major which she identifies as areas of discomfort. Chest is normal shape. Lungs are clear to all snyder with good air exchange through out. HRRR without murmur or gallop. No lifts, heaves, or rubs. Extrem: no clubbing or cyanosis. Edema: none. Extremities are warm and pink with prompt capillary refill. OMT myofascial release to TTPS with resolution pain. ASSESSMENT/PLAN: 1. Impacted cerumen of right ear - ICD9: 380.4, ICD10: H61.21 (primary diagnosis) Follow up as needed. Notify if any pain, swelling or discharge from right ear canal 2. Neck pain on right side - ICD9: 723.1, ICD10: M54.2 F/U prn. Tylenol is needed. If persistent, consider PT. Jose G Harrington PA-C documented in this [facility]23 History of Present illness Narrative* Jose G Harrington PA-C - 10/10/2022 1:20 PM EDT 82 year old female with c/o Paroxysmal atrial fibrillation (hcc) Cardiovascular interval hx: 04/11/2022-04/25/2022 ZIO monitor: HR 56-176, avg 77 with predominantly NSR with atrial fibrillation3% with longest duration 5.5 hours. Afib ranging from 83-176 bpm (avg of 113 bpm), the longest lasting 5 hours 13 mins with an avg rate of 116 bpm. Rare ectopy. 04/16/2022 echo: LV small. LVSF WNL, EF 59%, stage 1 LVDD RV size and RVSF WNL, unable to determine RAP LA + RA size WNL No significant valvular disease Normal great vessels Cardiac consult pending 12/30/2022 Dr Valladares Current meds: ASA 81mfg EC Use of NTG: n/a Chest pain, arm, jaw pain, neck, or upper back pain suggestive of angina: Yes. SOB: No Dyspnea with exertion: No orthopnea: No Cough : No racing or irregular heartbeats: No palpitations: No syncopal sx: No Headache: No Unexplainable fatigue No Leg swelling: No Nausea: No diaphoresis: No Heartburn: No Claudication: No Smoking: No Following Low cholesterol, high fiber diet? somewhat If on statin: muscle aches? N/a If on statin: GI sx or diarrhea? N/a Additional history Home BPs 131/66-151/73 Walks twice a day, Silver Sneakers three times a week. Lab review: Rotator cuff tear arthropathy, left Doing fine, Right shoulder chronically stiff. Hiatal hernia Collagenous colitis Irritable bowel syndrome with diarrhea Current medication: none currently. Current symptoms: bowels are hard, has to strain, no colitis sx. Increased prunes to 3-5. Does better if drinks a lot of water. Drinks decaff green tea and water Last Mg level if on PPI chronically: due. Heartburn is controlled: none. Burps a lot. Dysphagia: No. Bloody or black stools: No. Occasional bright red blood if strains Bowel changes: No. Stools tend to be hard, using prunes 5-6 a day which helps. Drinking liquids. Last EGD and/or colonoscopy: 09/01/[address] Sendy Whitehead: Granularity in the entire examined colon. Biopsied. Non-bleeding external and internal hemorrhoids. Bx:2. Colon, cecum, biopsy (B) - Colonic mucosa with slight increase in eosinophils; negative for dysplasia and malignancy: The colonic mucosa exhibits intact morphology with an increased number of eosinophils in the lamina propria without associated epithelial or crypt njury. These findings are of uncertain clinical significance but can be identified in the setting of medication induced injury, food allergies, parasites or others. 3. Colon, left, biopsies (C) - Colonic mucosa with slight increase in eosinophils; negative for dysplasia and malignancy; see comment. Chronic renal insufficiency, stage 3 (moderate) (hcc) 05/23/2021 orders not completed Vitamin d deficiency Hypercalcemia Was put on hold due to elevated calcium with improvement. Component Latest Ref Rng & Units 06/24/2019 10/11/2022 Vitamin D 25 Hydroxy 31.0 - 80.0 ng/mL 43.2 65.1 PTH, Intact 15 - 65 pg/mL 36 Ddd (degenerative disc disease), cervical Primary osteoarthritis of right hip Taking [employer] Herbal Tea which she feels is helping in a broad spectrum with pain, bowels, skin. Independent at home with family providing meals. Exercises as above. No falls. Takes no pain medication. HISTORIES FAMILY HISTORY Problem Relation Age of Onset Cancer Mother Hypertension Mother other (CVA) Mother age 86 Heart Father other (CVA) Father age 81 Ischemic Heart Disease Brother age 76 other (CVA) Brother other (ADMISSIONS COUNSELOR shunt) Brother Hypertension Sister Diabetes Sister age 66 (sepsis) PAST MEDICAL HISTORY Diagnosis Date Abnormal CT of the abdomen 01/24/2014 localized perihepatic fluid indeterminate, 4mm density too small for ID, fusiforma sortic ectasia Anemia Arthritis Cerebral degeneration (HCC) Collagenous colitis Degenerative lumbar disc Dyslipidemia GERD (gastroesophageal reflux disease) H/O colonoscopy 09/23/2014 small internal hemorrhoids otherwise WNL. No further surveillance recommended Hiatal hernia History of esophagogastroduodenoscopy (EGD) 09/23/2014 [facility]: All normal HTN (hypertension) Hyperlipidemia, mixed Osteoarthritis Osteopenia PUD (peptic ulcer disease) 2013 Vitamin D deficiency PAST SURGICAL HISTORY Procedure Laterality Date BUNIONECTOMY, LAPIDUS-TYPE Left 03/30/2007 Dr. Devin LOPEZCTOMY, LAPIDUS-TYPE Right 03/30/2008 Dr. Beltran CATARACT EXTRACTION W/ INTRAOCULAR LENS IMPLANT HX Left 03/31/2003 Dr. Sosa COLONOSCOPY 09/23/[address] Addy Enriquez, [place] internal hemorrhoids, otherwise WNL COLONOSCOPY FLX DX W/COLLJ SPEC WHEN PFRMD 09/01/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 Zoe Diana Normal esophagus, z-line, stomach and duodenum ESOPHAGOGASTRODUODENOSCOPY TRANSORAL DIAGNOSTIC 09/01/2020 EYE SURGERY HX INCISE FINGER TENDON SHEATH Right 12/26/2016 Right ring trigger finger release JOINT REPLACEMENT HX LAP UMBILICAL HERNIA REPAIR 02/24/2014 Umbilical hernia repair REMOVE CATARACT, INSERT LENS,EX Right REVJ TOT HIP ARTHRP BTH W/WO AGRFT/ALGRFT Right 05/30/2011 ROTATOR CUFF REPAIR Right 2013 R rotator cuff repair TONSILLECTOMY HX TONSILLECTOMY PRIMARY/SECONDARY <AGE 12 Tonsillectomy TOTAL HIP JOINT REPLACEMENT Left 10/03/2014 Social History Tobacco Use Smoking status: Never Smokeless tobacco: Never Vaping Use Vaping Use: Never used Substance Use Topics Alcohol use: No Drug use: No ACTIVE PROBLEM LIST Trigger Ring Finger of Right Hand Injury of Extensor Tendon of Hand Spontaneous Rupture of Extensor Tendon of Left Hand Acquired Trigger Finger Chronic Renal Insufficiency, Stage 3 (Moderate) (Hcc) Vitamin D Deficiency Ddd (Degenerative Disc Disease), Cervical Primary Osteoarthritis of Right Hip Collagenous Colitis Ibs (Irritable Bowel Syndrome) Hiatal Hernia Fall From Standing Rotator Cuff Tear Arthropathy, Left Paroxysmal Atrial Fibrillation (Hcc) Current Outpatient Medications Medication Sig Dispense Refill Magnesium 250 mg tab Take 500 mg by mouth once daily. propylene glycol/peg 400 (SYSTANE ULTRA OPHTHALMIC) Use in eyes. calcium carb and citrat-mag ox 200 mg calcium- 50 mg tab Take 1 tablet by mouth twice daily. Pt reports magnesium calcium citrate combination tablet 1 tablet two times daily Zinc 50 mg tab Take by mouth once daily. cranberry fruit extract (CRANBERRY ORAL) Take 650 mg by mouth once daily. acetaminophen (TYLENOL EXTRA STRENGTH ORAL) Take 2 tablets by mouth twice daily. LACTOBACILLUS ACIDOPHILUS (PROBIOTIC ACIDOPHILUS ORAL) Take by mouth. aspirin, enteric coated (ASPIRIN, ENTERIC COATED) 81 mg EC tablet Take 1 tablet by mouth once daily. 0 Cyanocobalamin 2,500 mcg subl Dissolve 1 tablet under the tongue once daily. 0 cholecalciferol (VITAMIN D3) 5,000 unit tab Take 5,000 Units by mouth once daily. multivitamin ORAL tablet Take 1 tablet by mouth once daily. Current Facility-Administered Medications Medication Dose Route Frequency Provider Last Rate Last Admin perflutren lipid microspheres 1.3 mL in NaCl (PF) 0.9% 10 mL injection (DEFINITY) INTRAVENOUS DIRECTED PRN Jose G Harrington PA-C sodium chloride 0.9 % (flush) 10 mL (BD POSIFLUSH) 10 mL INTRAVENOUS DIRECTED PRN Jose G Harrington PA-C DEPRESSION ASSESSMENT due on 04/14/2022 EXAM: BP 146/74 Pulse 68 Resp 16 Wt 53.1 kg (117 lb) SpO2 97% BMI 21.75 kg/m Pleasant adult woman in no acute distress. Alert and oriented all spheres. Normal affect and cognition. Speech normal. No deficits to learning or comprehension. Skin warm, dry, pink to lips and nailbeds. Normal turgor. Respirations regular and unlabored. HEENT: NCAT. No scleral icterus or conjunctival injection. TM's clear. Nose and oropharynx free from injection or lesion. Oral membranes moist and pink. No cervical lymph nodes. Thyroid non-tender, no masses, or enlargement. Carotids pulses 2+/4+ without bruits. No JVD with HOB at 30 degrees. Chest is normal shape. Lungs are clear to all snyder with good air exchange through out. HRRR without murmur or gallop. No lifts, heaves, or rubs. Extrem: no clubbing or cyanosis. Edema: none. Extremities are warm and pink with prompt capillary refill. ASSESSMENT/PLAN: 1. Paroxysmal atrial fibrillation (HCC) - ICD9: 427.31, ICD10: I48.0 (primary diagnosis) Stable BP a little elevated but less than 150/90 Would rather not risk balance issues - CBC - COMP METABOLIC PANEL - LIPID PANEL BASIC - MAGNESIUM BLD 2. Rotator cuff tear arthropathy, left - ICD9: 716.81, ICD10: M75.102, M12.812 Stable with good recovey 3. Hiatal hernia - ICD9: 553.3, ICD10: K44.9 Stable without complications - CBC - COMP METABOLIC PANEL 4. Collagenous colitis - ICD9: 558.9, ICD10: K52.831 Stable- no current sx - CBC - COMP METABOLIC PANEL - IRON + TIBC - FERRITIN BLD - VITAMIN D 25 HYDROXY - PTH INTACT BLD 5. Irritable bowel syndrome with diarrhea - ICD9: 564.1, ICD10: K58.0 As above 6. Chronic renal insufficiency, stage 3 (moderate) (HCC) - ICD9: 585.3, ICD10: N18.30 Recheck labs - CBC - COMP METABOLIC PANEL - MAGNESIUM BLD 7. Vitamin D deficiency - ICD9: 268.9, ICD10: E55.9 - VITAMIN D 25 HYDROXY - PTH INTACT BLD 8. DDD (degenerative disc disease), cervical - ICD9: 722.4, ICD10: M50.30 none 9. Primary osteoarthritis of right hip - ICD9: 715.15, ICD10: M16.11 stable 10. Asymptomatic menopause - ICD9: V49.81, ICD10: Z78.0 - DXA-AXIAL SKELETON 11. Asymptomatic postmenopausal status - ICD9: V49.81, ICD10: Z78.0 - DXA-AXIAL SKELETON Jose G Harrington PA-C documented in this encounterK[facility]23 Instructions* Patient Instructions* Jose G Harrington PA-C - 10/10/2022 6:49 AM EDT BONE MINERAL DENSITY PATIENT INSTRUCTIONS Bone mineral density testing measures the amount of calcium in certain parts of your bones. This information determines how strong your bones are. The test is used to detect osteoporosis, a disease in which the bone's mineral content and density are low, increasing a person's risk of fractures. Thelumbar spine (lower back) and the hip are the skeletal sites usually examined. For the test, remember that: 1. You cannot take this test if you are . 2. Eat a normal diet on the day of the test. 3. Take your medications as you normally would. 4. DO NOT take calcium supplements (such as Tums) for 24 hours before the test. 5. On the day of the test, leave valuables (jewelry or credit cards) at home. 6. The test should be performed prior to oral, rectal or IV contrast studies, or at least 7 days after any of these studies. For the test, you may be asked to wear a hospital gown. You will lie on your back, on a padded table, in a comfortable position. Generally, you can resume your usual activities immediately. documented in this encounterK[facility]12-29-2022 Procedure note* DIMA Ricardo - 04/11/2022 10:30 AM EST EVENT MONITOR DISPOSABLE PATCH INSTRUCTIONS Patient Name: Behzad Hay [facility] Number: [id number] Skin prepped and cleansed with alcohol Patch secured to prepped area Monitor Activated Serial #: [id number] Patient Instructed: Prescribed order timeframe Bathing guidelines Usage of event button and diary documentation Return of monitor at the end of prescribed order Call with problems [phone] or [phone] ext. [phone] Patient expresses a good understanding of instructions DIMA Ricardo documented in this encounterK[facility]12-29-2022 History of Present illness Narrative* Jose G Harrington PA-C - 04/11/2022 9:20 AM EST 82 year old female with c/o ER/ hospital follow up 04/07/2022 presented to [facility] emergency department after a fall in which she slipped on steps and fell backwards hitting her head. Son notes that she was confused for approximately 10 minutes after the fall. Patient denies headache, neck pain, loss of consciousness, no nausea or vomiting. She is on aspirin but no other blood thinners. 97.8 [id number]% room air, recheck blood pressure 158/73 CBC within normal limits, CMP within normal limits except [id number], EGFR 56. Normal troponin 116, TSH normal 1.[address]: No demonstrated abnormality, chronic involutional changes with Rhythm strip demonstrated atrial fibrillation with rapid ventricular rate: Patient was given Cardizem 20 mg IV with spontaneous conversion to normal sinus rhythm Patient was discharged with instructions to follow-up here. No chest pain, SOB, dyspnea, orthopnea, racing or irregular heartbeats, palpitations, syncopal sx, leg swelling, nausea, diaphoresis or heartburn. States couldn't tell heart out of rhythm. No headache or post-concussive sx. Has chronic pain in right lateral neck a little worse. Colitis: doing well. Eats prunes daily and drinks a lot of water. No abdominal pain or cramps. No heartburn or reflux. No current medications Continues issues with right hip pain and pain in right shoulder. Uses tylenol periodically. Left shoulder s/p rotator cuff tear is doing really well: can reach overhead without pain. HISTORIES FAMILY HISTORY Problem Relation Age of Onset Cancer Mother Hypertension Mother other (CVA) Mother age 86 Heart Father other (CVA) Father age 81 Ischemic Heart Disease Brother age 76 other (CVA) Brother other (ADMISSIONS COUNSELOR shunt) Brother Hypertension Sister Diabetes Sister age 66 (sepsis) PAST MEDICAL HISTORY Diagnosis Date Abnormal CT of the abdomen 01/24/2014 localized perihepatic fluid indeterminate, 4mm density too small for ID, fusiforma sortic ectasia Anemia Arthritis Cerebral degeneration (HCC) Collagenous colitis Degenerative lumbar disc Dyslipidemia GERD (gastroesophageal reflux disease) H/O colonoscopy 09/23/2014 small internal hemorrhoids otherwise WNL. No further surveillance recommended Hiatal hernia History of esophagogastroduodenoscopy (EGD) 09/23/2014 [facility]: All normal HTN (hypertension) Hyperlipidemia, mixed Osteoarthritis Osteopenia PUD (peptic ulcer disease) 2013 Vitamin D deficiency PAST SURGICAL HISTORY Procedure Laterality Date BUNIONECTOMY, LAPIDUS-TYPE Left 03/30/2007 Dr. Devin LOPEZCTOMY, LAPIDUS-TYPE Right 03/30/2008 Dr. Beltran CATARACT EXTRACTION W/ INTRAOCULAR LENS IMPLANT HX Left 03/31/2003 Dr. Sosa COLONOSCOP W/ OR W/O [facility] SPEC 09/01/2020 Dr. Whitehead COLONOSCOPY 09/23/2014 colonoscopy Samara Rodarte internal hemorrhoids, otherwise WNL CT ABDOMEN & PELVIS W/CONT 01/24/2014 localized yan hepatic unclear etiology, inflammatory vs metastatic disease; EGD 09/23/2014 Dr. Zoe Diana Normal esophagus, z-line, stomach and duodenum EGD W/O OR W/BRUSH/WASH 09/01/2020 EYE SURGERY HX INCISE FINGER TENDON SHEATH Right 12/26/2016 Right ring trigger finger release JOINT REPLACEMENT HX LAP UMBILICAL HERNIA REPAIR 02/24/2014 Umbilical hernia repair REMOVAL OF TONSILS,<12 Y/O Tonsillectomy REMOVE CATARACT, INSERT LENS,EX Right REVISE TOTAL HIP REPLACEMENT Right 05/30/2011 ROTATOR CUFF REPAIR Right 2013 R rotator cuff repair TONSILLECTOMY HX TOTAL HIP JOINT REPLACEMENT Left 10/03/2014 Social History Tobacco Use Smoking status: Never Smokeless tobacco: Never Vaping Use Vaping Use: Never used Substance Use Topics Alcohol use: No Drug use: No ACTIVE PROBLEM LIST Trigger Ring Finger of Right Hand Injury of Extensor Tendon of Hand Spontaneous Rupture of Extensor Tendon of Left Hand Acquired Trigger Finger Chronic Renal Insufficiency, Stage 3 (Moderate) ([facility]) Vitamin D Deficiency Ddd (Degenerative Disc Disease), Cervical Primary Osteoarthritis of Right Hip Collagenous Colitis Ibs (Irritable Bowel Syndrome) Hiatal Hernia Fall From Standing Rotator Cuff Tear Arthropathy, Left Current Outpatient Medications Medication Sig Dispense Refill Magnesium 250 mg tab Take 500 mg by mouth once daily. docosahexaenoic acid/epa (FISH OIL ORAL) Take by mouth once daily. propylene glycol/peg 400 (SYSTANE ULTRA OPHTHALMIC) Use in eyes. calcium carb and citrat-mag ox 200 mg calcium- 50 mg tab Take 1 tablet by mouth twice daily. Pt reports magnesium calcium citrate combination tablet 1 tablet two times daily Zinc 50 mg tab Take by mouth once daily. cranberry fruit extract (CRANBERRY ORAL) Take 650 mg by mouth once daily. acetaminophen (TYLENOL EXTRA STRENGTH ORAL) Take 2 tablets by mouth twice daily. LACTOBACILLUS ACIDOPHILUS (PROBIOTIC ACIDOPHILUS ORAL) Take by mouth. aspirin, enteric coated (ADULT LOW DOSE ASPIRIN) 81 mg EC tablet Take 1 tablet by mouth once daily.0 Cyanocobalamin (VITAMIN B-12) 2,500 mcg subl Dissolve 1 tablet under the tongue once daily. 0 Cholecalciferol, Vitamin D3, (VITAMIN D-3) 5,000 unit tab Take 5,000 Units by mouth once daily. multivitamin ORAL tablet Take 1 tablet by mouth once daily. No current facility-administered medications for this visit. COVID-19 VACCINE(3 - Booster for Moderna series) due on 08/04/2020 DEPRESSION ASSESSMENT Never done INFLUENZA(1) due on 12/13/2021 EXAM: BP 132/88 Pulse 75 Resp 16 Wt 54 kg (119 lb) SpO2 95% BMI 22.12 kg/m Pleasant, well but frail appearing elderly woman in no acute distress. Alert and oriented all spheres. Normal affect and cognition. Speech normal. No deficits to learning or comprehension. Skin warm, dry, pink to lips and nailbeds. Normal turgor. Respirations regular and unlabored. HEENT: NCAT. No scleral icterus or conjunctival injection. TM's clear. Nose and oropharynx free from injection or lesion. Oral membranes moist and pink. No cervical lymph nodes. Thyroid non-tender, no masses, or enlargement. Carotids pulses 2+/4+ without bruits. No JVD with HOB at 30 degrees. Chest is normal shape. Lungs are clear to all snyder with good air exchange through out. HRRR with gr 3/6 systolic murmur Erb's point, lessens with deep breath. murmur or gallop. No lifts,heaves, or rubs. Neck is supple, TTP in lateral anteriorscalene Extrem: no clubbing or cyanosis. Edema: none. Extremities are warm and pink with prompt capillary refill. ASSESSMENT/PLAN: 1. Paroxysmal atrial fibrillation (HCC) - ICD9: 427.31, ICD10: I48.0 (primary diagnosis) Currently in stable rhythm Educated regarding AF causes, consequences, usual rec for anticoagulation. Due to hx falls I feel this may be risky. Will proceed with 14 days monitor and echo, consult to cardiology. In the interim, she is to notify if any new sx. She was instructed on checking pulse and sx to report. - DEPRESSION SCREENING/ASSESSMENT - OUTSIDE VENDOR CARDIAC OUTPATIENT EXTENDED RHYTHM RECORDING (WITHOUT TELEMETRY) - ECHO - PERFLUTREN LIPID MICROSPHERES 1.1 MG/ML INJECTION IN NS 10 ML - SODIUM CHLORIDE 0.9 % (FLUSH) INJECTION SYRINGE 2. Chronic renal insufficiency, stage 3 (moderate) (HCC) - ICD9: 585.3, ICD10: N18.30 - eGFR: Stable - Counseled on avoiding regular use of NSAIDs, adequate hydration, potential risk of IV dye - CBC + DIFF - COMP METABOLIC PANEL - MAGNESIUM BLD - IRON + TIBC 3. Collagenous colitis - ICD9: 558.9, ICD10: K52.831 Currently quiescent - SED RATE OSWALD 4. Fall from standing, initial encounter - ICD9: E888.9, ICD10: W19.XXXA As above, doing remarkably well 5. Vitamin D deficiency - ICD9: 268.9, ICD10: E55.9 Recheck levels on supplement - VITAMIN D 25 HYDROXY 6. Iron deficiency anemia, unspecified iron deficiency anemia type - ICD9: 280.9, ICD10: D50.9 Recheck lab - CBC + DIFF - IRON + TIBC - FERRITIN BLD Will notify results. F/U 6 months and as needed. Reminded has my phone numbers for any complications or concers Jose G Harrington PA-C documented in this encounterK[facility]07-18-2022 Instructions* Patient Instructions* Jose G Harrington PA-C - 10/29/2021 11:59 AM EDT Triamcinolone 0.1% cream 2-3 times a x 5-7 days: if not improving or flares on discontinuation, letme know. documented in this encounterK[facility]07-18-2022 History of Present illness Narrative* Jose G Harrington PA-C - 10/29/2021 11:30 AM EDT 81 year old female with c/o here for acute visit related to rash: Patient contacted me privately with pictures of her arm demonstrating bright red streaks where she thought insects had possibly bitten her. Patient had been spraying weed killer a few days before that as was pointed out by friend and now patient thinks these might of been chemical rose. She has been using [id number] hydrocortisone and also triamcinolone from her prior prescription and areas seem to be resolving on their own. Torn rotator cuff left shoulder, chronic issues. Patient states she seems to be recovering fairly well, also probably contact me regarding her shoulder injury 3 or 4 months ago. Patient was provided short quantity of pain medication which seemed to help. She does not feel that surgery is an option she wants to take and has recovered fairly well with about similar uses what she has had previously which is limited. 06/15/2021 MRI left shoulder:1) Chronic large full-thickness rotator cuff tear involving supraspinatus, infraspinatus, 5.8 cm anterior to posterior with 4.2 cm retraction, moderate atrophy: Intermediate to high-grade partial-thickness 1.3 cm tear of the subscapularis thinning the tendon also with moderate atrophy. 2) torn and retracted long head of biceps. 3) moderate advanced glenohumeral cartilage loss posteriorly with moderate osteoarthropathy and degenerative labral tear. 4) Mild inflammation inferior joint capsule likely adhesive capsulitis or mild capsular sprain. 06/07/2021 [facility] consult: rotator cuff tear 06/04/2021 Lost balance swatting a bug on her face, fell on left shoulder and left forehead. CT of brain WNL, x-ray left shoulder no fracture. Collagenous colitis: Patient has not had complications with severe diarrhea since last episode. She remains off all medications including budesonide and omeprazole. Bowels are occasionally soft and mushy, weight has remained stable. She denies any acute pain. Component Latest Ref Rng & Units 08/02/2021 WBC 3.70 - 11.00 k/uL 6.63 RBC 3.90 - 5.20 m/uL 4.27 Hemoglobin 11.5 - 15.5 g/dL 13.4 Hematocrit 36.0 - 46.0 % 43.0 MCV 80.0 - 100.0 fL 100.7 (H) MCH 26.0 - 34.0 pg 31.4 MCHC 30.5 - 36.0 g/dL 31.2 RDW-CV 11.5 - 15.0 % 12.3 Platelet Count 150 - 400 k/uL 346 MPV 9.0 - 12.7 fL 9.1 Absolute nRBC <0.01 k/uL <0.01 Glucose 74 - 99 mg/dL 76 BUN 7 - 21 mg/dL 15 Creatinine 0.58 - 0.96 mg/dL 0.90 Sodium 136 - 144 mmol/L 141 Potassium 3.7 - 5.1 mmol/L 4.2 Chloride 97 - 105 mmol/L 100 CO2 22 - 30 mmol/L 30 Anion Gap 9 - 18 mmol/L 11 Calcium 8.5 - 10.2 mg/dL 10.1 eGFR >=60 mL/min/1.73m 64 Iron 41 - 186 ug/dL 108 TIBC 232 - 386 ug/dL 309 Transferrin Saturation 15 - 57 % 35 Ferritin 14.7 - 205.1 ng/mL 73.8 HISTORIES FAMILY HISTORY Problem Relation Age of Onset Cancer Mother Hypertension Mother other (CVA) Mother age 86 Heart Father other (CVA) Father age 81 Ischemic Heart Disease Brother age 76 other (CVA) Brother other (ADMISSIONS COUNSELOR shunt) Brother Hypertension Sister Diabetes Sister age 66 (sepsis) PAST MEDICAL HISTORY Diagnosis Date Abnormal CT of the abdomen 01/24/2014 localized perihepatic fluid indeterminate, 4mm density too small for ID, fusiforma sortic ectasia Anemia Arthritis Cerebral degeneration (HCC) Collagenous colitis Degenerative lumbar disc Dyslipidemia GERD (gastroesophageal reflux disease) H/O colonoscopy 09/23/2014 small internal hemorrhoids otherwise WNL. No further surveillance recommended Hiatal hernia History of esophagogastroduodenoscopy (EGD) 09/23/2014 [facility]: All normal HTN (hypertension) Hyperlipidemia, mixed Osteoarthritis Osteopenia PUD (peptic ulcer disease) 2013 Vitamin D deficiency PAST SURGICAL HISTORY Procedure Laterality Date BUNIONECTOMY, LAPIDUS-TYPE Left 03/30/2007 Dr. Devin CARLIONECTOMY, LAPIDUS-TYPE Right 03/30/2008 Dr. Beltran CATARACT EXTRACTION W/ INTRAOCULAR LENS IMPLANT HX Left 03/31/2003 Dr. Sosa COLONOSCOP W/ OR W/O [facility] SPEC 09/01/2020 Dr. Whitehead COLONOSCOPY 09/23/2014 colonoscopy Samara Rodarte internal hemorrhoids, otherwise WNL CT ABDOMEN & PELVIS W/CONT 01/24/2014 localized yan hepatic unclear etiology, inflammatory vs metastatic disease; EGD 09/23/2014 Dr. Zoe Diana Normal esophagus, z-line, stomach and duodenum EGD W/O OR W/BRUSH/WASH 09/01/2020 EYE SURGERY HX INCISE FINGER TENDON SHEATH Right 12/26/2016 Right ring trigger finger release JOINT REPLACEMENT HX LAP UMBILICAL HERNIA REPAIR 02/24/2014 Umbilical hernia repair REMOVAL OF TONSILS,<12 Y/O Tonsillectomy REMOVE CATARACT, INSERT LENS,EX Right REVISE TOTAL HIP REPLACEMENT Right 05/30/2011 ROTATOR CUFF REPAIR Right 2013 R rotator cuff repair TONSILLECTOMY HX TOTAL HIP JOINT REPLACEMENT Left 10/03/2014 Social History Tobacco Use Smoking status: Never Smoker Smokeless tobacco: Never Used Vaping Use Vaping Use: Never used Substance Use Topics Alcohol use: No Drug use: No ACTIVE PROBLEM LIST Trigger Ring Finger of Right Hand Injury of Extensor Tendon of Hand Spontaneous Rupture of Extensor Tendon of Left Hand Acquired Trigger Finger Chronic Renal Insufficiency, Stage 3 (Moderate) (Hcc) Vitamin D Deficiency Ddd (Degenerative Disc Disease), Cervical Primary Osteoarthritis of Right Hip Collagenous Colitis Ibs (Irritable Bowel Syndrome) Hiatal Hernia Fall From Standing Current Outpatient Medications Medication Sig Dispense Refill Magnesium 250 mg tab Take 500 mg by mouth once daily. docosahexaenoic acid/epa (FISH OIL ORAL) Take by mouth once daily. propylene glycol/peg 400 (SYSTANE ULTRA OPHTHALMIC) Use in eyes. calcium carb and citrat-mag ox 200 mg calcium- 50 mg tab Take 1 tablet by mouth twice daily. Pt reports magnesium calcium citrate combination tablet 1 tablet two times daily Zinc 50 mg tab Take by mouth once daily. cranberry fruit extract (CRANBERRY ORAL) Take 650 mg by mouth once daily. acetaminophen (TYLENOL EXTRA STRENGTH ORAL) Take 2 tablets by mouth twice daily. LACTOBACILLUS ACIDOPHILUS (PROBIOTIC ACIDOPHILUS ORAL) Take by mouth. aspirin, enteric coated (ADULT LOW DOSE ASPIRIN) 81 mg EC tablet Take 1 tablet by mouth once daily.0 Cyanocobalamin (VITAMIN B-12) 2,500 mcg subl Dissolve 1 tablet under the tongue once daily. 0 Garlic 300 mg cap Take 300 mg by mouth once daily. 0 Cholecalciferol, Vitamin D3, (VITAMIN D-3) 5,000 unit tab Take 5,000 Units by mouth once daily. Ascorbic Acid (VITAMIN C) 500 mg CpER Take by mouth once daily. multivitamin ORAL tablet Take 1 tablet by mouth once daily. ferrous sulfate 325 mg (65 mg iron) tablet Take 1 tablet by mouth twice daily with meals. (Patient not taking: Reported on 10/29/2021 ) 90 tablet 1 omeprazole (PRILOSEC) 20 mg capsule Take 1 capsule by mouth daily before breakfast. 1/2 hr before meal. (Patient not taking: Reported on 10/29/2021 ) 90 capsule 1 cholestyramine (QUESTRAN) 4 gram packet Take 1 Packet by mouth three times daily with meals. (Patient not taking: Reported on 10/29/2021 ) 270 Packet 3 budesonide, enteric coated (ENTOCORT EC) 3 mg 24 hr capsule Take 2 capsules by mouth once daily as needed. (Patient not taking: Reported on 10/30/2020 ) 180 capsule 3 No current facility-administered medications for this visit. COVID-19 VACCINE(3 - Booster for Moderna series) due on 11/06/2020 ADVANCE DIRECTIVE DISCUSSION Never done EXAM: BP 148/62 Pulse 69 Temp 36.7 C (98.1 F) (Tympanic) Resp 16 Wt 53.1 kg (117 lb) SpO2 95% BMI 21.75 kg/m Pleasant frail elderly woman, in usual cheerful mood, in no acute distress. Alert and oriented all spheres. Normal affect and cognition. Speech normal. No deficits to learning or comprehension. Skin warm, dry, pink to lips and nailbeds. Normal turgor. Respirations regular and unlabored. Head is normocephalic, atraumatic. No scleral icterus or conjunctival injection. Nose and oropharynx free from injection or lesion. Neck is supple. Chest is clear to auscultation percussion. Cardiac exam regular rate and rhythm, no murmurs or gallops. Extrem: no clubbing or cyanosis. Edema: none. Extremities are warm and pink with prompt capillary refill. Patient has limitations in shoulder motion bilaterally, able to get to about 100 degrees with the right shoulder in flexion and abduction, is able to reach behind her neck and behind her back with both left and right shoulders. Gait is antalgic, unsteady without holding on. ASSESSMENT/PLAN: 1. Irritant dermatitis - ICD9: 692.9, ICD10: L24.9 (primary diagnosis) - Topical steriod tx with triamcinolone 0.1% until resolved - discussed skin care of rash - follow up if symptoms persist or worsen. 2. Traumatic tear of left rotator cuff, sequela - ICD9: 905.7, E989, ICD10: S46.012S Has recovered to near baseline use, does not wish to seek further treatment. 3. Collagenous colitis - ICD9: 558.9, ICD10: K52.831 Stable GI pattern, no recent episodes with diarrhea or discomfort. Patient is completely off medications including budesonide and PPI coverage. Seems to be doing well. 4. Chronic renal insufficiency, stage 3 (moderate) ([facility]) - ICD9: 585.3, ICD10: N18.30 Stable 5. Vitamin D deficiency - ICD9: 268.9, ICD10: E55.9 Improved Follow-up in 6 months or as needed. Jose G Harrington PA-C [facility] History of Present illness Narrative* Jazmyne Bernabe RN - 10/24/2021 3:28 PM EDT [facility] Enrollment Provider Action/FYI: Patient declined home monitoring of any type - stated, "I just call the doctor when I don't feel well." Patient referred by: [facility] Gopal Contact made with patient: Yes - Patient identified by name and . Discussed care with patient Chu this is Jazmyne Bernabe RN and I am calling from Jose G Harrington PA-C office at the [facility]. I am a RN Track Template Maker with our [facility] Chronic Disease Management program. Jose G Harrington PA-C wanted me to reach out to help you manage your health at home. Our goal is to keep you well at home. We want to help you manage your chronic disease by providing a safety net of resources around you, getting you the care you need in a timely manner, and hopefully keep you out of the ED and hospital. I will send you a few questions once a week through your [employer] account. It will automatically show up for you to complete. There are simple questions that will help us identify if you have any concerns or symptoms and I will call you to help get what you need. We will be able to connect you, review your symptoms, do an on demand visit, or communicate with Jose G Harrington PA-C if needed. I am going to sign you up for the program now. Enrollment Questions: Let's get you enrolled in the program. No, reason: I am not interested in home monitoring at all Closing: PATIENT DECLINES - Thank you for your time today. I understand you are not interested participatingin our program at this time. I will be sure to let your primary care doctor know we discussed your option to enroll in the program and that, for now, you have chosen to opt-out. If you decide at any time that you would like to be involved in the program, please let your primary care doctor know, and he/she can refer you back to our program. * Jazmyne Bernabe RN - 10/24/2021 11:45 AM EDT [facility] Enrollment Provider Action/FYI: Left message Patient referred by: [facility] Gopal Contact made with patient: No - Left Message: Hi my name is Jazmyne Bernabe RN and I am calling [facility] the [facility] on behalf of your physician's metal forger's assistant, Jose G Harrington PA-C. We are excited to share with you a new way to help you manage your health. Please call me back at [phone] between the hours of 8am-4pm Friday-Friday. You will receive another phone call from me within the next two business days. I hope you can take the time to speak with me." (Keep encounter open and attempt 2nd outreach in two business days from today) END OUTREACH documented in this encounter[facility]-2022 Miscellaneous Notes* Telephone Encounter - Ariadna Head - 08/02/2021 8:33 AM EDT Unable to reach patient. Left detailed message on identified VM. Cathy Blanca MA * Telephone Encounter - Jose G Harrington PA-C - 08/01/2021 7:10 PM EDT Telephone on 08/01/21 CBC IRON + TIBC FERRITIN BLD BASIC METABOLIC PNL Adal [place] PA-C * Telephone Encounter - Nita Stark LPN - 08/01/2021 2:20 PM EDT Patient telephoned. She is requesting a recheck on her iron levels. Not mag-ox. Nita Stark LPN * Telephone Encounter - Margo Orellana APRN.CNP - 08/01/2021 9:23 AM EDT Why is patient taking this? Was this prescribed by a provider here? Margo Orellana APRN.NICO * Telephone Encounter - Jazmyne Mahmood - 08/01/2021 8:54 AM EDT Patient would like to have blood work done to see if the Mag-Ox pills she is taking are working. She is also asking for a prescription refill in other encounter. documented in this [facility]-2022 Miscellaneous Notes* Telephone Encounter - Jazmyne Oviedo Pss - 08/01/2021 8:52 AM EDT Pharmacy verified in [facility] Patient has been identified by name and date of : Yes Patient aware RX will be sent to pharmacy. No need to notify patient. Patient phones for refill(s): Pending Prescriptions Disp Refills FERROUS SULFATE 325 MG (65 MG IRON) TABLET 90 tablet 1 Sig: Take 1 tablet by mouth twice daily with meals. TEZ: No Date of last office visit : 06/13/2021 Labs- 01/09/21 Date of next office visit : Visit date not found Last 2 Encounter Wt Readings: Date: Wt: 02/20/2021 53.5 kg (118 lb) 09/13/2020 52.2 kg (115 lb) Please advise. 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 documented as of this encounter (statuses as of 10/24/2021) [place] [address] History of Past illness Narrative* Problem Noted Date Resolved Date 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 documented as of this encounter (statuses as of 10/30/2021) [place] [address] History of Past illness Narrative* Problem Noted Date Resolved Date 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 documented as of this encounter (statuses as of 04/17/2022) [place] [address] History of Past illness Narrative* Problem Noted Date Resolved Date Iatrogenic [place]'s disease 07/28/2017 documented as of this encounter (statuses as of 10/13/2022) [place] [address] History of Past illness Narrative* Problem Noted Date Diagnosed Date Resolved Date 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 documented as of this encounter (statuses as of 10/24/2022) [place] [address] History of Past illness Narrative* Problem Noted Date Diagnosed Date Resolved Date 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 documented as of this encounter (statuses as of 12/31/2022) [place] [address] History of Past illness Narrative* Problem Noted Date Diagnosed Date Resolved Date Iatrogenic [place]ory's disease 07/28/2017 07/06/2018 documented as of this encounter (statuses as of 05/21/2023) [place] [address] History of Past illness Narrative* Problem Noted Date Diagnosed Date Resolved Date 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 documented as of this encounter (statuses as of 05/26/2023) [place] [address] History of Past illness Narrative* Problem Noted Date Diagnosed Date Resolved Date 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 documented as of this encounter (statuses as of 05/26/2023) [place] [address] History of Past illness Narrative* Problem Noted Date Diagnosed Date Resolved Date Iatrogenic [place]ory's disease 07/28/2017 07/06/2018 documented as of this encounter (statuses as of 05/27/2023) [place] [address] History of Past illness Narrative* Problem Noted Date Diagnosed Date Resolved Date Iatrogenic [place] Libory's disease 07/28/2017 07/06/2018 documented as of this encounter (statuses as of 05/28/2023) [place] [address] History of Past illness Narrative* Problem Noted Date Diagnosed Date Resolved Date Iatrogenic [place] Libory's disease 07/28/2017 07/06/2018 documented as of this encounter (statuses as of 05/28/2023) [place] [address] History of Past illness Narrative* Problem Noted Date Diagnosed Date Resolved Date Iatrogenic [place] Libory's disease 07/28/2017 07/06/2018 documented as of this encounter (statuses as of 05/28/2023) [place] [address] History of Past illness Narrative* Problem Noted Date Diagnosed Date Resolved Date Iatrogenic [place] Libory's disease 07/28/2017 07/06/2018 documented as of this encounter (statuses as of 06/02/2023) [place] [address] History of Past illness Narrative* Problem Noted Date Diagnosed Date Resolved Date Iatrogenic [place] Libory's disease 07/28/2017 07/06/2018 documented as of this encounter (statuses as of 06/04/2023) [place] [address] History of Past illness Narrative* Problem Noted Date Diagnosed Date Resolved Date 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 documented as of this encounter (statuses as of 06/10/2023) [place] [address] History of Past illness Narrative* Problem Noted Date Diagnosed Date Resolved Date Iatrogenic [place] Libory's disease 07/28/2017 07/06/2018 documented as of this encounter (statuses as of 06/18/2023) [place] [address] History of Past illness Narrative* Problem Noted Date Diagnosed Date Resolved Date Iatrogenic [place] Libory's disease 07/28/2017 07/06/2018 documented as of this encounter (statuses as of 06/24/2023) [address]16-[address] History of Past illness Narrative* Problem Noted Date Diagnosed Date Resolved Date Iatrogenic [place] Libory's disease 07/28/2017 07/06/2018 documented as of this encounter (statuses as of 06/24/2023) [address]16[address]2018 History of Past illness Narrative* Problem Noted Date Diagnosed Date Resolved Date 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 documented as of this encounter (statuses as of 06/25/2023) [address]16[address] History of Past illness Narrative* Problem Noted Date Diagnosed Date Resolved Date 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 documented as of this encounter (statuses as of 07/08/2023) [address]16[address] History of Past illness Narrative* Problem Noted Date Diagnosed Date Resolved Date Iatrogenic [place]ory's disease 07/28/2017 07/06/2018 documented as of this encounter (statuses as of 07/16/2023) [address]16[address] History of Past illness Narrative* Problem Noted Date Diagnosed Date Resolved Date 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 Mihai Woods DO on 10/18/24 at 1233 Patient CBC reviewed showed a white blood count of 8.1, hemoglobin is 12.8, plate count of 310. Patient INR normal at 1.2, PT of 15.4, chemistries remain pending at this point in time. As well as troponin. Patient chest x-ray reviewed by myself and by radiology showed no acute cardiopulmonary processes she is stable mild cardiomegaly. Asked chronic vascular disease of the aorta noted diffuse osteopenia of the bony thorax with arthritic changes of both shoulders. 10/18/24 1233<Electronically signed by Mihai Woods DO> Cosigner Signature (if applicable): cc: GARFIELD Deutsch ~* Signed ADDENDUM by Dr. Mihai Woods DO on 10/18/24 at 1155 Patient's EKG reviewed showed atrial fibrillation with a rate of 83 bpm. She has a history of this on Eliquis. 10/18/24 1155<Electronically signed by Mihai Woods DO> Cosigner Signature (if applicable): cc: GARFIELD Deutsch ~* Signed HPI History of Present Illness Chief Complaint: Stroke Alert Narrative Narrative: Patient is a 84-year-old female past medical history of CVA, hypertension, paroxysmal atrial fibrillation on Eliquis, chronic kidney disease who presented to the emergency department as a prehospital stroke alert. Per EMS last night around 9 PM her family spoke with her noted that they have a video from earlier this morning around 6 AM of her ambulating normally without any difficulty and then the home health nurse noted that around [phone] she was leaning up against the wall. Ultimately patient was brought here for further evaluation management. [facility] Medical History Dyslipidemia HTN (hypertension) Paroxysmal atrial fibrillation Chronic anticoagulation Thoracic kyphosis Cystitis Stroke/cerebrovascular accident CKD (chronic kidney disease) stage 4, GFR 15-29 ml/min History of atrial fibrillation Fe deficiency anemia Osteoarthritis Home Medications ?Medication ?Instructions ?Recorded ?Last Taken ?Type multivitamin (Daily Multi-Vitamin 1 tab PO DAILY supp 08/16/24 08/18/24 History tablet) acetaminophen 325 mg tablet 650 mg (2 x 325 mg) PO Q4H PRN PRN 08/22/24 Unknown Rx Pain 1-10 Or Fever>99.6 #0 tabs apixaban 2.5 mg tablet 2.5 mg PO BID #60 tabs 09/17 Unknown Rx cholecalciferol (vitamin D3) 25 25 mcg PO DAILY #30 ta bs 09/17/24 Unknown Rx mcg (1,000 unit) tablet lisinopril 10 mg tablet 10 mg PO BID #60 tabs Unknown Rx metoprolol tartrate 25 mg tablet 25 mg PO BID #60 tabs 09/17/24 Unknown Rx melatonin 3 mg capsule 3 mg PO HS PRN 10/04/24 Unkn own History atorvastatin 40 mg tablet 40 mg PO QHS cholesterol 05/08 Unknown History Allergy/AdvReac Type Severity Reaction Status Date / Time adhesive tape Allergy Unknown Unknown Verified 10/12/24 09:44 sulfamethoxazole (From Allergy Unknown Unknown Verified 10/12/24 09:44 Bactrim) trimethoprim (From Bactrim) Allergy Unknown Unknown Verified 10/12/24 09:44 nitrofurantoin (From Allergy Rash Verified 10/12/24 09:44 Macrobid) [id number] Reductase AdvReac Unknown Unknown Verified 10/12/24 09:44 Inhibitor Family History Mother Cancer Hypertension CVA (cerebral vascular accident) Father Heart disease CVA (cerebral vascular accident) Brother Ischemic heart disease CVA (cerebral vascular accident) Sister Hypertension Diabetes Surgical History History of right hip replacement History of left hip replacement History of bilateral cataract extraction History of umbilical hernia repair History of esophagogastroduodenoscopy (EGD) History of colonoscopy History of bunionectomy of both great toes Hx of tonsillectomy Social History household members: none housing: condominium Smoking Status: Never smoker alcohol intake: never substance use type: does not use ROS ROS ED ROS Narrative Review of systems unobtainable from the patient secondary to her altered mental status therefore acute care caveat applies EXAM Physical Exam Narrative Exam Narrative: General: Patient is lying in stretcher did not appear to be acute distress Head: Atraumatic, normocephalic Eyes: PERRL bilaterally, EOMI blood, no conjunctival injection noted Neck: Soft, supple, trachea midline Cardiovascular: Regular rate rhythm Respiratory: Clear to auscultation bilaterally Abdomen: Soft, nondistended Extremities: Radial pulses +2/4 in the bilateral extremities, patient has significant weakness unable to hold up her right or left lower extremity Neurological: No acute was able to close her eyes when asked to do so she was able to hold her left arm and left leg off the bed however was unable to hold her right arm and leg off the bed. NIH of 8 GCS 15 Skin: Warm, dry, intact no rashes or lesions noted Const Vital Signs: 10/18/24 11:01 10/18/24 11:03 10/18/24 11:03 Temperature 97.8 F 98.6 F Temperature Source Oral Oral Pulse Rate 87 77 Respiratory Rate 17 19 H Blood Pressure 158/107 H 158/107 H Blood Pressure Mean 124 124 Pulse Ox 97 97 Oxygen Delivery Method Room Air Room Air Room Air 10/18/24 11:30 10/18/24 11:33 10/18/24 11:33 Temperature 98.6 F 98.6 F 98.6 F Temperature Source Oral Oral Oral Pulse Rate 87 81 88 Respiratory Rate 16 19 H 15 Blood Pressure 160/100 H 152/84 H 125/71 H Blood Pressure Mean 120 106 89 Pulse Ox 95 97 98 Oxygen Delivery Method Room Air Room Air Room Air 10/18/24 11:48 Temperature Temperature Source Pulse Rate 87 Respiratory Rate 16 Blood Pressure 158/107 H Blood Pressure Mean 124 Pulse Ox 97 Oxygen Delivery Method MDM MDM MDM Narrative Medical decision making narrative: Patient is a 84-year-old female who presents to the emergency department via EMSprehospital stroke alert with concern for right-sided deficits. Per EMS they are not sure if she is on any blood thinning medications or not per the record she is on Eliquis. On the differential diagnosis includes but not limited to ischemic stroke, intracranial hemorrhage, hypoglycemia, electrolyte abnormality. Once workup is obtained reviewed she will be reevaluated. Patient is not a tenecteplase candidate as her CT was positive for a intracranial hemorrhage. She is also on Eliquis. Will order the reversal [facility] physician Dr. Trujillo who states that the patient can fly down to [facility] the accepting ER physician is Dr. Bautista. Blood pressure parameter goals is a systolic of less than 140. Patient's blood work is pending at this point time. CTA head and neck reviewed showed no acute abnormalities noted. Stable examination. I updated the patient and family was at bedside they are agreeable with this plan. Critical care time 43 minutes Radiography Diagnostic Testing: Clinical Impression(s) from Imaging Studies Brain CT 10/18/24 11:03 IMPRESSION: 1.6 cm 1.2 cm hematoma in the left thalamus. Red Alert: Left thalamic hematoma The critical information above was relayed directly by me by telephone to Mihai Woods on 10/18/2024 at 11:16 am with readback verification. Reading Location: [facility]-IR-[facility] Head/Neck CTA 10/18/24 11:03 IMPRESSION: No acute abnormality is seen. Stable examination. Reading Location: [facility]-IR-[facility] Discharge Plan Triage Chief Complaint: Stroke Alert ED Provider: Mihai Woods Dx/Rx/DC Orders Clinical Impression: Intracranial hemorrhage, Acute right-sided weakness Prescriptions: No Action atorvastatin 40 mg tablet 40 mg PO QHS melatonin 3 mg capsule 3 mg PO HS PRN multivitamin [Daily Multi-Vitamin] Tablet 1 tab PO DAILY acetaminophen 325 mg Tablet 650 mg PO Q4H PRN PRN (Reason: Pain 1-10 Or Fever>99.6) Qty: 0 0RF lisinopril 10 mg Tablet 10 mg PO BID Qty: 60 0RF metoprolol tartrate 25 mg Tablet 25 mg PO BID Qty: 60 0RF cholecalciferol (vitamin D3) 25 mcg (1,000 unit) Tablet 25 mcg PO DAILY Qty: 30 0RF apixaban 2.5 mg tablet 2.5 mg PO BID Qty: 60 0RF Primary Care Provider: Tasha Deutsch Referrals: Tasha Deutsch, GARFIELD [Primary Care Provider] - Print Language: Turkmen Disposition Disposition: DC/Tx to Another Type of HCF What to do if you have Problems For any increased pain, shortness of breath, bleeding, nausea or vomiting, chestpain, or any unexpected problems, contact your Primary Care Provider. Call [facility] ([phone]) or report to the closest Emergency Room. Call 911 if necessary. 10/18/24 6964 <Electronically signed by Mihai Woods DO> Cosigner Signature (if applicable): CC: GARFIELD Deutsch ~ Signed [facility] Work Phone: Evaluation noteThere may be information available, but it has not been provided by the sender.[facility] Work Phone: Evaluation note* Diagnosis Iron deficiency anemia due to chronic blood loss Iron deficiency anemia secondary to blood loss (chronic) [facility] Diagnosis Chronic renal insufficiency, stage 3 (moderate) (HCC)- Primary Iron deficiency anemia due to chronic blood loss Iron deficiency anemia secondary to blood loss (chronic) [facility]* Diagnosis Irritant dermatitis- Primary Contact dermatitis and other eczema, due to unspecified cause Traumatic tear of left rotator cuff, sequela Collagenous colitis Other and unspecified noninfectious gastroenteritis and colitis Chronic renal insufficiency, stage 3 (moderate) (HCC) Vitamin D deficiency Unspecified vitamin D deficiency documented in this encounter [facility] noteNo assessment information availableWUC [facility] Work Phone: Evaluation note* Diagnosis Paroxysmal atrial fibrillation (HCC)- Primary Atrial fibrillation Chronic renal insufficiency, stage 3 (moderate) (HCC) Collagenous colitis Other and unspecified noninfectious gastroenteritis and colitis Fall from standing, initial encounter Vitamin D deficiency Unspecified vitamin D deficiency Iron deficiency anemia, unspecified iron deficiency anemia type [facility]* Diagnosis Paroxysmal atrial fibrillation (HCC)- Primary Atrial fibrillation Rotator cuff tear arthropathy, left Hiatal hernia Diaphragmatic hernia without mention of obstruction or gangrene Collagenous colitis Other and unspecified noninfectious gastroenteritis and colitis Irritable bowel syndrome with diarrhea Irritable bowel syndrome Chronic renal insufficiency, stage 3 (moderate) (HCC) Vitamin D deficiency Unspecified vitamin D deficiency DDD (degenerative disc disease), cervical Degeneration of cervical intervertebral disc Primary osteoarthritis of right hip Primary localized osteoarthrosis, pelvic region and thigh Asymptomatic menopause Asymptomatic postmenopausal status [facility] [facility] Diagnosis Impacted cerumen of right ear- Primary Impacted cerumen Neck pain on right side Cervicalgia [facility] Diagnosis Paroxysmal atrial fibrillation (HCC)- Primary Atrial fibrillation Primary hypertension Unspecified essential hypertension [facility] Diagnosis Acute pain of right shoulder- Primary Severe pain of left shoulder Cervicalgia [facility] Diagnosis Primary hypertension- Primary Unspecified essential hypertension Transient cerebral ischemia, unspecified type Dizziness Dizziness and giddiness Right carotid bruit Other symptoms involving cardiovascular system [facility] Diagnosis Transient cerebral ischemia, unspecified type [facility] Diagnosis DDD (degenerative disc disease), cervical- Primary Degeneration of cervical intervertebral disc Primary hypertension Unspecified essential hypertension Right carotid bruit Other symptoms involving cardiovascular system Vitamin D deficiency Unspecified vitamin D deficiency Vitamin B12 deficiency Other B-complex deficiencies Dizziness Dizziness and giddiness [facility] Diagnosis Acute pain of right shoulder- Primary Severe pain of left shoulder Cervicalgia [facility] Diagnosis Acute pain of right shoulder- Primary Severe pain of left shoulder Cervicalgia [facility] Diagnosis Pain Generalized pain [facility] Diagnosis Chronic pain of left knee- Primary Pain in joint, lower leg Primary osteoarthritis of left knee Primary localized osteoarthrosis, lower leg Patellofemoral pain syndrome of left knee [facility] Diagnosis Acute pain of right shoulder- Primary Severe pain of left shoulder Cervicalgia [facility] Diagnosis Occlusion and stenosis of unspecified carotid artery- Primary Bilateral carotid artery stenosis Occlusion and stenosis of carotid artery without mention of cerebral infarction Fibromuscular dysplasia (HCC) Other specified disorders of arteries and arterioles [facility] Diagnosis Acute right-sided low back pain without sciatica- Primary Primary hypertension Unspecified essential hypertension Urinary tract infection with hematuria, site unspecified [facility] Diagnosis Chronic pain of left knee- Primary Pain in joint, lower leg Primary osteoarthritis of left knee Primary localized osteoarthrosis, lower leg [facility] Diagnosis Chronic pain of left knee- Primary Pain in joint, lower leg [facility]* Diagnosis Headache, unspecified headache type- Primary Primary hypertension Unspecified essential hypertension Paroxysmal atrial fibrillation (HCC) Atrial fibrillation Dysuria Primary insomnia Persistent disorder of initiating or maintaining sleep [facility] Diagnosis Primary osteoarthritis of left knee- Primary Primary localized osteoarthrosis, lower leg [facility] Diagnosis Acute paronychia of toe of left foot- Primary [facility] Diagnosis Paroxysmal atrial fibrillation (HCC)- Primary Atrial fibrillation DDD (degenerative disc disease), cervical Degeneration of cervical intervertebral disc Primary hypertension Unspecified essential hypertension Primary osteoarthritis of right hip Primary localized osteoarthrosis, pelvic region and thigh Chronic renal insufficiency, stage 3 (moderate) (HCC) Chronic insomnia Insomnia, unspecified Stress incontinence Female stress incontinence [facility] Diagnosis PAD (peripheral artery disease) (HCC)- Primary Peripheral vascular disease, unspecified [facility]* Diagnosis Acute pain of right shoulder [facility] Diagnosis Left thigh pain Pain in limb [facility] Diagnosis Acute non-recurrent maxillary sinusitis- Primary Urinary urgency Urgency of urination [facility]* Diagnosis Collagenous colitis- Primary Other and unspecified noninfectious gastroenteritis and colitis Screening for depression Encounter for screening examination for other mental health and behavioral disorders Primary hypertension Unspecified essential hypertension Paroxysmal atrial fibrillation (HCC) Atrial fibrillation DDD (degenerative disc disease), cervical Degeneration of cervical intervertebral disc Chronic renal insufficiency, stage 3 (moderate) (HCC) Vitamin D deficiency Unspecified vitamin D deficiency Other iron deficiency anemia Screening for diabetes mellitus Screening for lipid disorders Pressure injury of left foot, stage 1 Stress incontinence Female stress incontinence [facility] Diagnosis Recurrent UTI (urinary tract infection)- Primary Urinary tract infection, site not specified [facility] Diagnosis Primary hypertension Unspecified essential hypertension [facility] Diagnosis Paroxysmal atrial fibrillation (HCC)- Primary Atrial fibrillation Cerebrovascular accident (CVA) due to occlusion of cerebral artery (HCC) [facility]* Diagnosis Paroxysmal atrial fibrillation (HCC)- Primary Atrial fibrillation 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 Recurrent UTI (urinary tract infection) Urinary tract infection, site not specified Primary hypertension Unspecified essential hypertension Chronic renal insufficiency, stage 3 (moderate) (HCC) [facility]* Diagnosis Cerebral infrc due to embolism of unsp ant cerebral artery (HCC)- Primary [facility]* Diagnosis Dysuria- Primary Confusion Unspecified psychosis Seasonal allergic rhinitis, unspecified trigger [facility] Diagnosis Paroxysmal atrial fibrillation (HCC) Atrial fibrillation Cerebrovascular accident (CVA) due to occlusion of cerebral artery (HCC) [facility] Diagnosis Basal ganglia hemorrhage- Primary Intracerebral hemorrhage Basal ganglia hemorrhage Intracerebral hemorrhage Cerebrovascular accident (CVA), unspecified mechanism Chronic atrial fibrillation Atrial fibrillation Dysphagia due to recent cerebrovascular accident (CVA) Atrial fibrillation, chronic Atrial fibrillation [facility] Acute CVA (cerebrovascular accident) (HCC)- [facility] Additional Instructions Ice to scalp if you have any swelling. Hold your daily aspirin the next 2 days. Then you can restart it. Tylenol for pain. Return if severe headache, vomiting or not acting herself. Follow-up with your primary care provider for the diagnosis of new onset atrial fibrillation.[facility] Work Phone: InstructionsNo information available.[facility] Work Phone: Patient's home Plan of care note* Visit Details Visit Type -SN SOC Discipline -Longterm Problems Problem Description Start Date Status Goals Interve ntions Medication Education Disciplines: Skilled Services 09/22/2024 Active 1 goal linked to scheduled/documen any intervention 1 goal intervention scheduled/document ed in this visit Sepsis Disciplines: Skilled Services 09/22/2024 Active 1 goal linked to scheduled/documen any intervention 1 goal intervention scheduled/document ed in this visit Risk for Falls Disciplines: Skilled Services 09/22/2024 Active 1 goal linked to scheduled/documen any intervention 1 goal intervention scheduled/document ed in this visit Nutrition/Hydration Disciplines: Skilled Services 09/22/2024 Active 1 goal linked to scheduled/documen any intervention 1 goal intervention scheduled/document ed in this visit High Risk Medications Disciplines: Skilled Services 09/22/2024 Active 1 goal linked to scheduled/documen any intervention 1 goal intervention scheduled/document ed in this visit Discharge Disciplines: Skilled Services 09/22/2024 Active 1 goal linked to scheduled/documen any intervention 2 goal interventions scheduled/document ed in this visit SN Cardiovascular Condition Disciplines: SN 09/22/2024 Active 1 goal linked to scheduled/documen any intervention 1 goal intervention scheduled/document ed in this visit Physician Specific Parameters Disciplines: Skilled Services 09/22/2024 Active 1 goal linked to scheduled/documen any intervention 3 goal interventions scheduled/document ed in this visit Goals Goal Associated Problem Outcome Goal Met? Visit Notes Patient/caregiver will demonstrate ability to obtain, store, identify and administer ordered medications, keep accurate medication list in home, and adhere to medication schedule Description: Patient/caregiver will demonstrate ability to obtain, store, identify and administer ordered medications, keep accurate medication list in home, and adhere to medication schedule by 11/11/24. Medication Education No Patient/caregiver will be able to identify and report symptoms of sepsis Description: Patient/caregiver will be able to identify signs/symptoms of sepsis infection and will verbalize actions to take if suspected by 11/11/24. Sepsis No Manage Risk for falls Description: Patient/caregiver will verbalize knowledge of individualized fall prevention strategies by 11/11/24. Risk for Falls No Manage Nutrition/Hydration Description: Patient/caregiver will verbalize/demonstrate knowledge of prescribed diet and/or healthy nutrition to be achieved by 10/14/24. Nutrition/Hydration No Patient/caregiver will teach back high risk medication side effect and precaution education Description: STG Patient/caregiver will verbalize understanding of high risk medication side effects and precautions to be achieved by 10/14/24. LTG Patient/caregiver will continue to verbalize understanding of high risk medication side effects and precautions throughout certification period. High Risk Medications No Manage discharge planning Description: Patient/caregiver will verbalize understanding of ongoing discharge plan provided related to disease management, arrangements for outpatient and/or community services, obtaining medications, supplies, and DME, as needed throughout certification period. Discharge No Improved management of cardiovascular disease Description: Improve patient/caregiver management of cardiac disease as evidenced by patient/caregiver ability to teach back cardiac management strategies by 10/14/24. SN Cardiovascular Condition No Patient to maintain parameters within physician-specified ranges throughout certification period Physician Specific Parameters No Interventions Intervention Associated Problem/Goal Status Variance Visit Notes Medication Education Description: Evaluate/instruct patient/caregiver on obtaining, storing, identifying and administering ordered medications as well as keeping accurate medication list in the home and adhereing to medication schedule Problem:Medication Education Goal:Patient/caregiver will demonstrate ability to obtain, store, identify and administer ordered medications, keep accurate medication list in home, and adhere to medication schedule Completed Patient and Caregiver instructed on adhering to medication schedule, proper storage of medications and medication, route, dose, frequency, purpose, and side effects of all medications. Risk of Sepsis Description: Patient is at risk for sepsis. Monitor closely for s/s of sepsis. Problem:Sepsis Goal:Patient/caregiver will be able to identify and report symptoms of sepsis Completed Instruct on individual fall risk factors and strategies to prevent falls and injuries caused by falls. Problem:Risk for Falls Goal:Manage Risk for falls Completed SN: Patient and Caregiver instructed on Eliminating Environmental Hazards: Keep pathways clear and Keep rooms and walkways well lit Incontinence Management: Use incontinence pads/briefs Managing Impaired Functional Mobility: Use assistive device(s): rollator walker and Caregiver to provide assist with: Ambulation, Steps, Transfers and ADL/IADLs Define patient s appetite/hydration status and implement strategies to improve compliance with prescribed diet and/or healthy nutrition. Problem:Nutrition/Hydr ation Goal:Manage Nutrition/Hydration Completed instructed patient and caregiver on implementing strategies to comply with prescribed diet, healthy nutrition and adequate hydration Anticoagulant- educated on high risk medication Problem:High Risk Medications Goal:Patient/caregiver will teach back high risk medication side effect and precaution education Completed patient and caregiver educated on anticoagulant medication eliquis Take your medication as instructed and at the same time each day. Do not stop medication or alter doses without speaking with your provider. Discuss medication effectiveness or side effect concerns with your provider and home care team. Discuss all medications you are taking, even [id number] medicines, with your provider and pharmacist since many drugs can interact with anticoagulants. Tell anyone providing medical or dental care that you are taking an anticoagulant. DO NOT STOP your medication even for a minor procedure like dental work without first checking with the provider. If you forget to take a dose, DO NOT take a double dose. Take the missed dose as soon as possible on the same day. DO NOT take a double dose the next day to make up for the missed dose. Watch for signs of abnormal or excessive bleeding and bruising (refer to Bleeding Precautions education). Call your health care provider right away if you suspect something is wrong. Instruct on ongoing discharge plan Problem:Discharge Goal:Manage discharge planning Completed Ongoing Discharge plan: Discharge plan discussed with patient and caregiver including frequency and duration for home SN and plan for transition to: caregiver assistance. Instruct on importance of follow-up appts and continued monitoring with medical provider &/or chronic care clinic Problem:Discharge Goal:Manage discharge planning Completed Education provided on importance of compliance with follow-up appointment(s). Recommendations: appointment scheduled for 10/04 with PCP and appt for cardiology has been scheduled. Instruct on cardiovascular disease process and management of condition Description: Patient has following cardiac diagnosis(es): AFIB and Hypertension. Problem:SN Cardiovascular Condition Goal:Improved management of cardiovascular disease Completed patient and caregiver instructed on cardiac disease process, new cardiac medications metoprolol and self monitoring & symptom reporting. Heart Rate Description: Notify NICO J. Suppan if heart rate < 60 or > 120 at rest. Problem:Physician Specific Parameters Goal:Patient to maintain parameters within physician-specified ranges throughout certification period Completed Blood Pressure Description: Notify NICO Dotty Suppan if resting SBP is <100 or >160. Problem:Physician Specific Parameters Goal:Patient to maintain parameters within physician-specified ranges throughout certification period Completed SPO2 Description: Notify [employer] J Suppan if pulse ox is <92% at rest. Problem:Physician Specific Parameters Goal:Patient to maintain parameters within physician-specified ranges throughout certification period [facility] Visit Details Visit Type -SUPERVISOR OF INSTRUCTION EVAL Discipline -Speech Language Pathology Problems Problem Description Start Date Status Goals Interve ntions SUPERVISOR OF INSTRUCTION Referral Disciplines: Skilled Services 09/22/2024 Active 1 goal linked to scheduled/document ed intervention 1 goal intervention scheduled/documente d in this visit Discharge Disciplines: Skilled Services 09/22/2024 Active 1 goal linked to scheduled/document ed intervention 1 goal intervention scheduled/documente d in this visit Physician Specific Parameters Disciplines: Skilled Services 09/22/2024 Active 1 goal linked to scheduled/document ed intervention 3 goal interventions scheduled/documente d in this visit SUPERVISOR OF INSTRUCTION Learning Assessment Disciplines: SUPERVISOR OF INSTRUCTION 09/23/2024 Active 1 goal linked to scheduled/document ed intervention 1 goal intervention scheduled/documente d in this visit SUPERVISOR OF INSTRUCTION Language Reading Comprehension Disciplines: SUPERVISOR OF INSTRUCTION 09/23/2024 Active 1 goal linked to scheduled/document ed intervention 1 goal intervention scheduled/documente d in this visit SUPERVISOR OF INSTRUCTION Language Auditory Comprehension Disciplines: SUPERVISOR OF INSTRUCTION 09/23/2024 Active 1 goal linked to scheduled/document ed intervention 1 goal intervention scheduled/documente d in this visit SUPERVISOR OF INSTRUCTION Language Written Expression Disciplines: SUPERVISOR OF INSTRUCTION 09/23/2024 Active 1 goal linked to scheduled/document ed intervention 1 goal intervention scheduled/documente d in this visit SUPERVISOR OF INSTRUCTION Language Verbal Expression Disciplines: SUPERVISOR OF INSTRUCTION 09/23/2024 Active 1 goal linked to scheduled/document ed intervention 1 goal intervention scheduled/documente d in this visit SUPERVISOR OF INSTRUCTION Cognition Memory Disciplines: SUPERVISOR OF INSTRUCTION 09/23/2024 Active 1 goal linked to scheduled/document ed intervention 1 goal intervention scheduled/documente d in this visit SUPERVISOR OF INSTRUCTION Cognition Executive Function/Problem Solving/Reasonin g Disciplines: SUPERVISOR OF INSTRUCTION 09/23/2024 Active 1 goal linked to scheduled/document ed intervention 1 goal intervention scheduled/documente d in this visit Goals Goal Associated Problem Outcome Goal Met? Visit Notes Patient will be referred to additional discipline as needed SUPERVISOR OF INSTRUCTION Referral No Manage discharge planning Description: Patient/caregiver will verbalize understanding of ongoing discharge plan provided related to disease management, arrangements for outpatient and/or community services, obtaining medications, supplies, and DME, as needed throughout certification period. Discharge No Patient to maintain parameters within physician-specified ranges throughout certification period Physician Specific Parameters No Patient/Caregiver Demonstrates understanding of education Description: patient, caregiver will understand educational instruction, to be achieved by 10/16/24. SUPERVISOR OF INSTRUCTION Learning Assessment No Improve Reading Comprehension STG Description: Patient will demonstrate ability to read sentences for improved ability to function in the home and community as evidenced by pictures to sentences, comprehension questions and following written instructions with minimal cues in 80% accuracy. To be achieved by 10/16/24. SUPERVISOR OF INSTRUCTION Language Reading Comprehension No Improve Auditory Comprehension STG Description: Patient/caregiver will improve comprehension of following multi-step directions, complex yes/no and open ended questions with minimal cues in 80% accuracy. To be achieved by 10/09/24. SUPERVISOR OF INSTRUCTION Language Auditory Comprehension No Improve Written Expression STG Description: Patient will demonstrate ability to write at number and letter level for improved ability to function in the home and community as evidenced by copying and writing to dictation with moderate cues in 75% accuracy. To be achieved by 10/09/24. SUPERVISOR OF INSTRUCTION Language Written Expression No Improve Verbal Expression STG Description: Patient/caregiver will produce sentence completion, description, confrontation naming and response naming to indicate thoughts, wants, needs and ideas with others, with minimal verbal and semantic cues with/in 80% accuracy. To be achieved by 10/09/24. SUPERVISOR OF INSTRUCTION Language Verbal Expression No Improve Memory Skills STG Description: Patient/caregiver will verbalize/demonstrate awareness of memory strategies for short term memory information with minimal cues verbally and visually with/in 65% accuracy. To be achieved by 10/09/24. SUPERVISOR OF INSTRUCTION Cognition Memory No Improve Problem Solving or Reasoning Description: Patient will complete problem solving or reasoning tasks related to basic mathematic skills generate solutions, sequencing and situation problem solving with minimal cueing with/in 70% accuracy. To be achieved by 10/09/24. SUPERVISOR OF INSTRUCTION Cognition Executive Function/Problem Solving/Reasoning No Interventions Intervention Associated Problem/Goal Status Variance Visit Notes SUPERVISOR OF INSTRUCTION evaluation and treatment Description: ST Referral eval and treat for Impaired verbal expression and memory and establish HEP. Problem:SUPERVISOR OF INSTRUCTION Referral Goal:Patient will be referred to additional discipline as needed Completed Instruct on ongoing discharge plan Problem:Discharge Goal:Manage discharge planning Completed Ongoing Discharge plan: Discharge plan discussed with patient and caregiver including frequency and duration for home ST and plan for transition to: live at home with community assistance. Heart Rate Description: Notify NICO J. Suppan if heart rate < 60 or > 120 at rest. Problem:Physician Specific Parameters Goal:Patient to maintain parameters within physician-specified ranges throughout certification period Completed Blood Pressure Description: Notify NICO Dotty Suppan if resting SBP is <100 or >160. Problem:Physician Specific Parameters Goal:Patient to maintain parameters within physician-specified ranges throughout certification period Completed SPO2 Description: Notify NICO J Suppan if pulse ox is <92% at rest. Problem:Physician Specific Parameters Goal:Patient to maintain parameters within physician-specified ranges throughout certification period Completed Assessment of patient/caregiver knowledge deficit and educational instruction Problem:SUPERVISOR OF INSTRUCTION Learning Assessment Goal:Patient/Caregive r Demonstrates understanding of education Completed Education methods include: verbal cues. Further education required to improve knowledge and compliance with functional cognitive, language skills and home exercise program. Reading Exercise Instruction Problem:SUPERVISOR OF INSTRUCTION Language Reading Comprehension Goal:Improve Reading Comprehension STG Completed SUPERVISOR OF INSTRUCTION instructed patient/caregiver to demonstrate reading comprehension of words and sentences with completing functional reading tasks, patient/caregiver completed with minimal cues in 62% accuracy. Auditory Comprehension Instruction Problem:SUPERVISOR OF INSTRUCTION Language Auditory Comprehension Goal:Improve Auditory Comprehension STG Completed SUPERVISOR OF INSTRUCTION instructed/cued patient to complete the following tasks to improve auditory comprehension skills identify pictures and complex yes/no with no cues in 68% accuracy. Written Expression Instruction Problem:SUPERVISOR OF INSTRUCTION Language Written Expression Goal:Improve Written Expression STG Completed SUPERVISOR OF INSTRUCTION instructed patient to write numbers and letters by writing to dictation with no cues in 20% accuracy. Verbal Expression Problem:SUPERVISOR OF INSTRUCTION Language Verbal Expression Goal:Improve Verbal Expression STG Completed SUPERVISOR OF INSTRUCTION instructed patient to produce confrontation naming and response naming to indicate thoughts, wants, needs and ideas with others, with no verbal and semantic cues with/in 52% accuracy. Memory Strategy Education Memory Exercises and Techniques Problem:SUPERVISOR OF INSTRUCTION Cognition Memory Goal:Improve Memory Skills STG Completed Instructed patient/caregiver on use of memory strategies repetition to improve ability to recall short term memory tasks patient completed with no cueing with/in 10% accuracy. Problem Solving Reasoning Problem:SUPERVISOR OF INSTRUCTION Cognition Executive Function/Problem Solving/Reasoning Goal:Improve Problem Solving or Reasoning Completed Instructed patient on exercises and tasks to improve planning and self-monitoring skills for completion of tasks in home environment: basic mathematic skills generate solutions and sequencing, patient completed with no cueing with/in 10% accuracy. documented in this encounter [facility] home Plan of care note* Visit Details Visit Type -PT EVAL Discipline -Physical Therapy Problems Problem Description Start Date Status Goals Interve ntions Sepsis Disciplines: Skilled Services 09/22/2024 Active 1 goal linked to scheduled/documen any intervention 1 goal intervention scheduled/document ed in this visit PT Referral Disciplines: Skilled Services 09/22/2024 Resolved on 09/25/2024 1 goal linked to scheduled/documen any intervention 1 goal intervention scheduled/document ed in this visit Risk for Falls Disciplines: Skilled Services 09/22/2024 Active 1 goal linked to scheduled/documen any intervention 1 goal intervention scheduled/document ed in this visit Physician Specific Parameters Disciplines: Skilled Services 09/22/2024 Active 1 goal linked to scheduled/documen any intervention 3 goal interventions scheduled/document ed in this visit PT Impaired muscle performance and/or ROM Disciplines: PT 09/25/2024 Active 1 goal linked to scheduled/documen any intervention 1 goal intervention scheduled/document ed in this visit PT Impaired gait Disciplines: PT 09/25/2024 Active 1 goal linked to scheduled/documen any intervention 1 goal intervention scheduled/document ed in this visit PT Neurologic Condition Disciplines: PT 09/25/2024 Active 1 goal linked to scheduled/documen any intervention 1 goal intervention scheduled/document ed in this visit PT Learning Assessment Disciplines: PT 09/25/2024 Active 1 goal linked to scheduled/documen any intervention 1 goal intervention scheduled/document ed in this visit Goals Goal Associated Problem Outcome Goal Met? Visit Notes Patient/caregiver will be able to identify and report symptoms of sepsis Description: Patient/caregiver will be able to identify signs/symptoms of sepsis infection and will verbalize actions to take if suspected by 11/11/24. Sepsis No Patient will be referred to additional discipline as needed PT Referral Completed Yes Manage Risk for falls Description: Patient/caregiver will verbalize knowledge of individualized fall prevention strategies by 11/11/24. Risk for Falls No Patient to maintain parameters within physician-specified ranges throughout certification period Physician Specific Parameters No Improved Muscle Performance and/or ROM Description: LTG: Patient will demonstrate improved muscle performance to meet functional goals as evidenced by ability to tolerate 15 minutes of therapeutic activity, to be achieved by 10/16/24. . STG: Patient and/or caregiver will verbalize/demonstrate independence with home exercise program, to improve functional mobility, to be achieved by 10/02/24. . PT Impaired muscle performance and/or ROM No Improved Gait Description: LTG: Patient will demonstrate improved gait ability as evidenced by ambulation 200 feet with rollator walker independently with AD, in order to resume walking around the [address] with her friends , to be achieved by 10/16/24. . LTG: Patient will demonstrate improved gait ability as evidenced by ambulation 100 feet with single point cane independently with AD in the home , to return to safe household ambulation, in order to return to plf , to be achieved by 10/16/24. . PT Impaired gait No Manage Neurologic Condition Description: Improve patient and/or caregiver understanding of post surgical and/or non-surgical neurologic intervention management as evidenced by patient and/or caregiver able to verbalize, demonstrate, and teach back instruction, to be achieved by 10/16/24. . PT Neurologic Condition No Demonstrate understanding of education Description: Patient and/or caregiver will understand educational instruction to be achieved by 10/16/24. . PT Learning Assessment No Interventions Intervention Associated Problem/Goal Status Variance Visit Notes Risk of Sepsis Description: Patient is at risk for sepsis. Monitor closely for s/s of sepsis. Problem:Sepsis Goal:Patient/caregive r will be able to identify and report symptoms of sepsis Completed PT evaluation and treatment Description: Evaluate and treat for the assessment of functional deficits and establishment of appropriate interventions and education, including recommendations for functional mobility training, balance training for fall reduction, and strengthening. Problem:PT Referral Goal:Patient will be referred to additional discipline as needed Completed Instruct on individual fall risk factors and strategies to prevent falls and injuries caused by falls. Problem:Risk for Falls Goal:Manage Risk for falls Completed PT: Patient instructed on Eliminating Environmental Hazards: Keep pathways clear, Remove unsafe rugs, Move furniture from pathways, Keep rooms and walkways well lit, Install hand rails/grab bars and Wear supportive shoes or non-skid socks Managing Impaired Functional Mobility: Use assistive device(s): rollator walker Managing Pain Heart Rate Description: Notify NICO Deutsch if heart rate < 60 or > 120 at rest. Problem:Physician Specific Parameters Goal:Patient to maintain parameters within physician-specified ranges throughout certification period Completed Blood Pressure Description: Notify NICO Deutsch if resting SBP is <100 or >160. Problem:Physician Specific Parameters Goal:Patient to maintain parameters within physician-specified ranges throughout certification period Completed SPO2 Description: Notify NICO Deutsch if pulse ox is <92% at rest. Problem:Physician Specific Parameters Goal:Patient to maintain parameters within physician-specified ranges throughout certification period Completed Physical Therapy Therapeutic Exercises Problem:PT Impaired muscle performance and/or ROM Goal:Improved Muscle Performance and/or ROM Completed patient instructed on strengthening exercises including Standing :heel raises, toe raises, knee flexion , hip ext , hip abd, knee bends x 15 reps with verbal cues for technique . patient instructed to perform home exercise program daily which included hourly ambulation. Physical Therapy Gait Training Problem:PT Impaired gait Goal:Improved Gait Completed Gait training and instruction to patient on safe ambulation with rollator walker for 20' x 4 feet with supervision, with verbal cues for corrections of gait deviations including increased stride length, trying to not shuffle. Could not understand heel toe sequencing Walker is too tall for her but she is happy with it , in fact thought it should be taller . Instruct on self-management of post surgical and/or non-surgical neurologic intervention Problem:PT Neurologic Condition Goal:Manage Neurologic Condition Completed patient instructed on instructed on when to [email or web address] (balance, eyes, face, arms, speech, time). Instruct and educate on knowledge deficits Problem:PT Learning Assessment Goal:Demonstrate understanding of education Completed patient verbalize and/or demonstrate understanding of physical therapy education including neurological disease management, fall prevention strategies, home safety, functional activity and home exercise program. Education methods include: verbal cues and written instructions. Further education required to improve knowledge and compliance with fall prevention strategies, home safety, functional activity and home exercise program. documented in this encounter [facility] Plan of care note* Visit Details Visit Type -SUPERVISOR OF INSTRUCTION ROUTINE Discipline -Speech Language Pathology Problems Problem Description Start Date Status Goals Interve ntions Medication Education Disciplines: Skilled Services 09/22/2024 Active 1 goal linked to scheduled/document ed intervention 1 goal intervention scheduled/documente d in this visit Sepsis Disciplines: Skilled Services 09/22/2024 Active 1 goal linked to scheduled/document ed intervention 1 goal intervention scheduled/documente d in this visit SUPERVISOR [employer] INSTRUCTION Referral Disciplines: Skilled Services 09/22/2024 Active 1 goal linked to scheduled/document ed intervention 1 goal intervention scheduled/documente d in this visit Risk for Falls Disciplines: Skilled Services 09/22/2024 Active 1 goal linked to scheduled/document ed intervention 1 goal intervention scheduled/documente d in this visit Pain Disciplines: Skilled Services 09/22/2024 Active 1 goal linked to scheduled/document ed intervention 1 goal intervention scheduled/documente d in this visit Nutrition/Hydrat ion Disciplines: Skilled Services 09/22/2024 Active 1 goal linked to scheduled/document ed intervention 1 goal intervention scheduled/documente d in this visit High Risk Medications Disciplines: Skilled Services 09/22/2024 Active 1 goal linked to scheduled/document ed intervention 1 goal intervention scheduled/documente d in this visit Physician Specific Parameters Disciplines: Skilled Services 09/22/2024 Active 1 goal linked to scheduled/document ed intervention 3 goal interventions scheduled/documente d in this visit SUPERVISOR OF INSTRUCTION Learning Assessment Disciplines: SUPERVISOR OF INSTRUCTION 09/23/2024 Active 1 goal linked to scheduled/document ed intervention 1 goal intervention scheduled/documente d in this visit SUPERVISOR [employer] INSTRUCTION Language Reading Comprehension Disciplines: SUPERVISOR OF INSTRUCTION 09/23/2024 Active 1 goal linked to scheduled/document ed intervention 1 goal intervention scheduled/documente d in this visit SUPERVISOR [employer] INSTRUCTION Language Auditory Comprehension Disciplines: SUPERVISOR OF INSTRUCTION 09/23/2024 Active 1 goal linked to scheduled/document ed intervention 1 goal intervention scheduled/documente d in this visit SUPERVISOR [employer] INSTRUCTION Language Verbal Expression Disciplines: SUPERVISOR OF INSTRUCTION 09/23/2024 Active 1 goal linked to scheduled/document ed intervention 1 goal intervention scheduled/documente d in this visit SUPERVISOR OF INSTRUCTION Cognition Memory Disciplines: SUPERVISOR OF INSTRUCTION 09/23/2024 Active 1 goal linked to scheduled/document ed intervention 1 goal intervention scheduled/documente d in this visit SUPERVISOR OF INSTRUCTION Cognition Executive Function/Problem Solving/Reasonin g Disciplines: SUPERVISOR OF INSTRUCTION 09/23/2024 Active 1 goal linked to scheduled/document ed intervention 1 goal intervention scheduled/documente d in this visit Goals Goal Associated Problem Outcome Goal Met? Visit Notes Patient/caregiver will demonstrate ability to obtain, store, identify and administer ordered medications, keep accurate medication list in home, and adhere to medication schedule Description: Patient/caregiver will demonstrate ability to obtain, store, identify and administer ordered medications, keep accurate medication list in home, and adhere to medication schedule by 11/11/24. Medication Education No Patient/caregiver will be able to identify and report symptoms of sepsis Description: Patient/caregiver will be able to identify signs/symptoms of sepsis infection and will verbalize actions to take if suspected by 11/11/24. Sepsis No Patient will be referred to additional discipline as needed SUPERVISOR OF INSTRUCTION Referral No Manage Risk for falls Description: Patient/caregiver will verbalize knowledge of individualized fall prevention strategies by 11/11/24. Risk for Falls No Manage Pain Description: Patient/caregiver will verbalize knowledge and understanding of appropriate techniques to control pain, including pain medication. Patient will verbalize or demonstrate an acceptable level of pain as evidenced by a pain score of <4/10 and improvement in ability to perform activities of daily living to be achieved by 11/11/24. Pain No Manage Nutrition/Hydration Description: Patient/caregiver will verbalize/demonstrate knowledge of prescribed diet and/or healthy nutrition to be achieved by 10/14/24. Nutrition/Hydration No Patient/caregiver will teach back high risk medication side effect and precaution education Description: STG Patient/caregiver will verbalize understanding of high risk medication side effects and precautions to be achieved by 10/14/24. LTG Patient/caregiver will continue to verbalize understanding of high risk medication side effects and precautions throughout certification period. High Risk Medications No Patient to maintain parameters within physician-specified ranges throughout certification period Physician Specific Parameters No Patient/Caregiver Demonstrates understanding of education Description: patient, caregiver will understand educational instruction, to be achieved by 10/16/24. SUPERVISOR OF INSTRUCTION Learning Assessment No Improve Reading Comprehension STG Description: Patient will demonstrate ability to read sentences for improved ability to function in the home and community as evidenced by pictures to sentences, comprehension questions and following written instructions with minimal cues in 80% accuracy. To be achieved by 10/16/24. SUPERVISOR OF INSTRUCTION Language Reading Comprehension No Improve Auditory Comprehension STG Description: Patient/caregiver will improve comprehension of following multi-step directions, complex yes/no and open ended questions with minimal cues in 80% accuracy. To be achieved by 10/09/24. SUPERVISOR OF INSTRUCTION Language Auditory Comprehension No Improve Verbal Expression STG Description: Patient/caregiver will produce sentence completion, description, confrontation naming and response naming to indicate thoughts, wants, needs and ideas with others, with minimal verbal and semantic cues with/in 80% accuracy. To be achieved by 10/09/24. SUPERVISOR OF INSTRUCTION Language Verbal Expression No Improve Memory Skills STG Description: Patient/caregiver will verbalize/demonstrate awareness of memory strategies for short term memory information with minimal cues verbally and visually with/in 65% accuracy. To be achieved by 10/09/24. SUPERVISOR OF INSTRUCTION Cognition Memory No Improve Problem Solving or Reasoning Description: Patient will complete problem solving or reasoning tasks related to basic mathematic skills generate solutions, sequencing and situation problem solving with minimal cueing with/in 70% accuracy. To be achieved by 10/09/24. SUPERVISOR OF INSTRUCTION Cognition Executive Function/Problem Solving/Reasoning No Interventions Intervention Associated Problem/Goal Status Variance Visit Notes Medication Education Description: Evaluate/instruct patient/caregiver on obtaining, storing, identifying and administering ordered medications as well as keeping accurate medication list in the home and adhereing to medication schedule Problem:Medication Education Goal:Patient/caregiv er will demonstrate ability to obtain, store, identify and administer ordered medications, keep accurate medication list in home, and adhere to medication schedule Completed Patient instructed on adhering to medication schedule. Risk of Sepsis Description: Patient is at risk for sepsis. Monitor closely for s/s of sepsis. Problem:Sepsis Goal:Patient/caregiv er will be able to identify and report symptoms of sepsis Completed SUPERVISOR OF INSTRUCTION evaluation and treatment Description: ST Referral eval and treat for Impaired verbal expression and memory and establish HEP. Problem:SUPERVISOR OF INSTRUCTION Referral Goal:Patient will be referred to additional discipline as needed Completed Instruct on individual fall risk factors and strategies to prevent falls and injuries caused by falls. Problem:Risk for Falls Goal:Manage Risk for falls Completed SUPERVISOR OF INSTRUCTION: Patient instructed on Managing Impaired Functional Mobility: Use assistive device(s): rollator walker. Instruct on pain and instruct on strategies to control pain Problem:Pain Goal:Manage Pain Completed patient instructed on techniques to control pain including Pharmacological measures and Non-Pharmacological measures; rest. Define patient s appetite/hydration status and implement strategies to improve compliance with prescribed diet and/or healthy nutrition. Problem:Nutrition/Hy dration Goal:Manage Nutrition/Hydration Completed reinforced patient and caregiver on implementing strategies to comply with healthy nutrition and adequate hydration Anticoagulant- educated on high risk medication Problem:High Risk Medications Goal:Patient/caregiv er will teach back high risk medication side effect and precaution education Completed patient and caregiver educated on anticoagulant medication eliquis. Take your medication as instructed and at the same time each day. Do not stop medication or alter doses without speaking with your provider. Discuss medication effectiveness or side effect concerns with your provider and home care team. Discuss all medications you are taking, even [id number] medicines, with your provider and pharmacist since many drugs can interact with anticoagulants. Tell anyone providing medical or dental care that you are taking an anticoagulant. DO NOT STOP your medication even for a minor procedure like dental work without first checking with the provider. If you forget to take a dose, DO NOT take a double dose. Take the missed dose as soon as possible on the same day. DO NOT take a double dose the next day to make up for the missed dose. Watch for signs of abnormal or excessive bleeding and bruising (refer to Bleeding Precautions education). Call your health care provider right away if you suspect something is wrong. Heart Rate Description: Notify NICO Deutsch if heart rate < 60 or > 120 at rest. Problem:Physician Specific Parameters Goal:Patient to maintain parameters within physician-specified ranges throughout certification period Completed Blood Pressure Description: Notify NICO Deutsch if resting SBP is <100 or >160. Problem:Physician Specific Parameters Goal:Patient to maintain parameters within physician-specified ranges throughout certification period Completed SPO2 Description: Notify NICO Deutsch if pulse ox is <92% at rest. Problem:Physician Specific Parameters Goal:Patient to maintain parameters within physician-specified ranges throughout certification period Completed Assessment of patient/caregiver knowledge deficit and educational instruction Problem:SUPERVISOR OF INSTRUCTION Learning Assessment Goal:Patient/Caregiv er Demonstrates understanding of education Completed Education methods include: verbal cues, visual cues and teach back. Further education required to improve knowledge and compliance with functional cognitive, language skills, speech intelligibility strategies and home exercise program. Reading Exercise Instruction Problem:SUPERVISOR OF INSTRUCTION Language Reading Comprehension Goal:Improve Reading Comprehension STG Completed SUPERVISOR OF INSTRUCTION instructed patient/caregiver to demonstrate reading comprehension of phrases and sentences with matching pictures to words and comprehension questions, patient/caregiver completed with minimal cues in 80% trials. Auditory Comprehension Instruction Problem:SUPERVISOR OF INSTRUCTION Language Auditory Comprehension Goal:Improve Auditory Comprehension STG Completed SUPERVISOR OF INSTRUCTION instructed/cued patient to complete the following tasks to improve auditory comprehension skills complex yes/no, answering simple questions related to autobiographical info, comprehend Wh questions and open ended questions with minimal cues in 90% accuracy. Verbal Expression Problem:SUPERVISOR OF INSTRUCTION Language Verbal Expression Goal:Improve Verbal Expression STG Completed SUPERVISOR OF INSTRUCTION instructed patient to produce description, responses to Wh questions and responses to closed ended questions to indicate thoughts, wants, needs and ideas with others, with minimal verbal and semantic cues with/in 80% trials. Memory Strategy Education Memory Exercises and Techniques Problem:SUPERVISOR OF INSTRUCTION Cognition Memory Goal:Improve Memory Skills STG Completed Instructed patient/caregiver on use of memory strategies repetition, association and visual aides to improve ability to recall immediate memory tasks and short term memory tasks patient completed with moderate cueing with/in 3/4 trials. Problem Solving Reasoning Problem:SUPERVISOR OF INSTRUCTION Cognition Executive Function/Problem Solving/Reasoning Goal:Improve Problem Solving or Reasoning Completed Instructed patient on exercises and tasks to improve planning and self-monitoring skills for completion of tasks in home environment: situation problem solving and reasoning, patient completed with minimal cueing with/in 14/20 trials. documented in this encounter [facility] Plan of care note* Visit Details Visit Type -CARDIAC CARE NURSE ROUTINE Discipline -Physical Therapy Problems Problem Description Start Date Status Goals Interve ntions Medication Education Disciplines: Skilled Services 09/22/2024 Active 1 goal linked to scheduled/document ed intervention 1 goal intervention scheduled/document ed in this visit Sepsis Disciplines: Skilled Services 09/22/2024 Active 1 goal linked to scheduled/document ed intervention 1 goal intervention scheduled/document ed in this visit Risk for Falls Disciplines: Skilled Services 09/22/2024 Active 1 goal linked to scheduled/document ed intervention 1 goal intervention scheduled/document ed in this visit Pain Disciplines: Skilled Services 09/22/2024 Active 1 goal linked to scheduled/document ed intervention 1 goal intervention scheduled/document ed in this visit Discharge Disciplines: Skilled Services 09/22/2024 Active 1 goal linked to scheduled/document ed intervention 1 goal intervention scheduled/document ed in this visit Physician Specific Parameters Disciplines: Skilled Services 09/22/2024 Active 1 goal linked to scheduled/document ed intervention 3 goal interventions scheduled/document ed in this visit PT Impaired muscle performance and/or ROM Disciplines: PT 09/25/2024 Active 1 goal linked to scheduled/document ed intervention 1 goal intervention scheduled/document ed in this visit PT Impaired gait Disciplines: PT 09/25/2024 Active 2 goals linked to scheduled/document ed interventions 2 goal interventions scheduled/document ed in this visit PT Impaired balance Disciplines: PT 09/25/2024 Active 1 goal linked to scheduled/document ed intervention 1 goal intervention scheduled/document ed in this visit PT Neurologic Condition Disciplines: PT 09/25/2024 Active 1 goal linked to scheduled/document ed intervention 1 goal intervention scheduled/document ed in this visit PT Learning Assessment Disciplines: PT 09/25/2024 Active 1 goal linked to scheduled/document ed intervention 1 goal intervention scheduled/document ed in this visit Goals Goal Associated Problem Outcome Goal Met? Visit Notes Patient/caregiver will demonstrate ability to obtain, store, identify and administer ordered medications, keep accurate medication list in home, and adhere to medication schedule Description: Patient/caregiver will demonstrate ability to obtain, store, identify and administer ordered medications, keep accurate medication list in home, and adhere to medication schedule by 11/11/24. Medication Education No Patient/caregiver will be able to identify and report symptoms of sepsis Description: Patient/caregiver will be able to identify signs/symptoms of sepsis infection and will verbalize actions to take if suspected by 11/11/24. Sepsis No Manage Risk for falls Description: Patient/caregiver will verbalize knowledge of individualized fall prevention strategies by 11/11/24. Risk for Falls No Manage Pain Description: Patient/caregiver will verbalize knowledge and understanding of appropriate techniques to control pain, including pain medication. Patient will verbalize or demonstrate an acceptable level of pain as evidenced by a pain score of <4/10 and improvement in ability to perform activities of daily living to be achieved by 11/11/24. Pain No Manage discharge planning Description: Patient/caregiver will verbalize understanding of ongoing discharge plan provided related to disease management, arrangements for outpatient and/or community services, obtaining medications, supplies, and DME, as needed throughout certification period. Discharge No Patient to maintain parameters within physician-specified ranges throughout certification period Physician Specific Parameters No Improved Muscle Performance and/or ROM Description: LTG: Patient will demonstrate improved muscle performance to meet functional goals as evidenced by ability to tolerate 15 minutes of therapeutic activity, to be achieved by 10/16/24. . STG: Patient and/or caregiver will verbalize/demonstrate independence with home exercise program, to improve functional mobility, to be achieved by 10/02/24. . PT Impaired muscle performance and/or ROM No Improved Stair Climbing Description: LTG: Patient will demonstrate improved stair negotiation as evidenced by ascend/descend 1 steps with cane and grab bar independently, to safely access all areas of the home, to be achieved by 10/16/24. . PT Impaired gait No Improved Gait Description: LTG: Patient will demonstrate improved gait ability as evidenced by ambulation 200 feet with rollator walker independently with AD, in order to resume walking around the [address] with her friends , to be achieved by 10/16/24. . LTG: Patient will demonstrate improved gait ability as evidenced by ambulation 100 feet with single point cane independently with AD in the home , to return to safe household ambulation, in order to return to plf , to be achieved by 10/16/24. . PT Impaired gait No Improved Balance Description: LTG: Patient will demonstrate improved standing balance to meet functional goals as evidenced by TUG score of <25 to be achieved by 10/16/24. PT Impaired balance No Manage Neurologic Condition Description: Improve patient and/or caregiver understanding of post surgical and/or non-surgical neurologic intervention management as evidenced by patient and/or caregiver able to verbalize, demonstrate, and teach back instruction, to be achieved by 10/16/24. . PT Neurologic Condition No Demonstrate understanding of education Description: Patient and/or caregiver will understand educational instruction to be achieved by 10/16/24. . PT Learning Assessment No Interventions Intervention Associated Problem/Goal Status Variance Visit Notes Medication Education Description: Evaluate/instruct patient/caregiver on obtaining, storing, identifying and administering ordered medications as well as keeping accurate medication list in the home and adhereing to medication schedule Problem:Medication Education Goal:Patient/caregive r will demonstrate ability to obtain, store, identify and administer ordered medications, keep accurate medication list in home, and adhere to medication schedule Completed Patient instructed on importance of keeping accurate medication list in home. Risk of Sepsis Description: Patient is at risk for sepsis. Monitor closely for s/s of sepsis. Problem:Sepsis Goal:Patient/caregive r will be able to identify and report symptoms of sepsis Completed Instruct on individual fall risk factors and strategies to prevent falls and injuries caused by falls. Problem:Risk for Falls Goal:Manage Risk for falls Completed PT: Patient instructed on Managing Impaired Functional Mobility: Use assistive device(s): rollator walker Instruct on pain and instruct on strategies to control pain Problem:Pain Goal:Manage Pain Completed patient denies pain Instruct on ongoing discharge plan Problem:Discharge Goal:Manage discharge planning Completed Ongoing Discharge plan: Discharge plan discussed with patient and caregiver including frequency and duration for home PT and plan for transition to: live independently at home without ongoing services. Heart Rate Description: Notify NICO Deutsch if heart rate < 60 or > 120 at rest. Problem:Physician Specific Parameters Goal:Patient to maintain parameters within physician-specified ranges throughout certification period Completed Blood Pressure Description: Notify NICO Deutsch if resting SBP is <100 or >160. Problem:Physician Specific Parameters Goal:Patient to maintain parameters within physician-specified ranges throughout certification period Completed SPO2 Description: Notify NICO Deutsch if pulse ox is <92% at rest. Problem:Physician Specific Parameters Goal:Patient to maintain parameters within physician-specified ranges throughout certification period Completed Physical Therapy Therapeutic Exercises Problem:PT Impaired muscle performance and/or ROM Goal:Improved Muscle Performance and/or ROM Completed patient instructed on strengthening exercises including standing heel toe raises, hip abd and flexion, hams curls and 1/4 squats x's 15 each with verbal and visual cues for posture and pace. patient instructed to perform home exercise program daily which included above ex. Physical Therapy Stair Training Problem:PT Impaired gait Goal:Improved Stair Climbing Completed Stair training and instruction to patient on safe stair climbing, ascend/descend 1 steps, with grab bar with supervision and verbal cues for safety. Physical Therapy Gait Training Problem:PT Impaired gait Goal:Improved Gait Completed Gait training and instruction to patient on safe ambulation with rollator walker for 2x'40 feet with supervision, with verbal cues for corrections of gait deviations including increased step height and length. Physical Therapy Balance Training Problem:PT Impaired balance Goal:Improved Balance Completed Developed, implemented, and instructed patient on standing balance exercises including lateral stepping and tandem walking w/ unilateral support on counter x's 3laps each. unsupported standing WBIS and NBOS tandem standing w/ finger touch on counter Instruct on self-management of post surgical and/or non-surgical neurologic intervention Problem:PT Neurologic Condition Goal:Manage Neurologic Condition Completed patient instructed on instructed on when to call [id number] Mobility (balance, eyes, face, arms, speech, time). Instruct and educate on knowledge deficits Problem:PT Learning Assessment Goal:Demonstrate understanding of education Completed patient verbalize and/or demonstrate understanding of physical therapy education including functional activity and home exercise program. Education methods include: verbal cues and visual cues. Further education required to improve knowledge and compliance with home exercise program. documented in this encounter [facility] home Plan of care note* Visit Details Visit Type -SN ROUTINE Discipline -Longterm Problems Problem Description Start Date Status Goals Interve ntions Medication Education Disciplines: Skilled Services 09/22/2024 Active 1 goal linked to scheduled/docume nted intervention 1 goal intervention scheduled/documen any in this visit Sepsis Disciplines: Skilled Services 09/22/2024 Active 1 goal linked to scheduled/docume nted intervention 1 goal intervention scheduled/documen any in this visit PUBLIC EMPLOYMENT MEDIATOR Referral Disciplines: Skilled Services 09/22/2024 Resolved on 09/29/2024 1 goal linked to scheduled/docume nted intervention SUPERVISOR OF INSTRUCTION Referral Disciplines: Skilled Services 09/22/2024 Resolved on 09/29/2024 1 goal linked to scheduled/docume nted intervention Risk for Falls Disciplines: Skilled Services 09/22/2024 Active 1 goal linked to scheduled/docume nted intervention 1 goal intervention scheduled/documen any in this visit Nutrition/Hydration Disciplines: Skilled Services 09/22/2024 Active 1 goal linked to scheduled/docume nted intervention 1 goal intervention scheduled/documen any in this visit High Risk Medications Disciplines: Skilled Services 09/22/2024 Active 1 goal linked to scheduled/docume nted intervention 1 goal intervention scheduled/documen any in this visit SN Neurological Disciplines: SN 09/22/2024 Active 1 goal linked to scheduled/docume nted intervention 1 goal intervention scheduled/documen any in this visit SN Cardiovascular Condition Disciplines: SN 09/22/2024 Active 1 goal linked to scheduled/docume nted intervention 1 goal intervention scheduled/documen any in this visit SN Learning Assessment Disciplines: SN 09/22/2024 Active 1 goal linked to scheduled/docume nted intervention 1 goal intervention scheduled/documen any in this visit SN Genitourinary disease process Disciplines: SN 09/22/2024 Active 1 goal linked to scheduled/docume nted intervention 1 goal intervention scheduled/documen any in this visit Physician Specific Parameters Disciplines: Skilled Services 09/22/2024 Active 1 goal linked to scheduled/docume nted intervention 3 goal interventions scheduled/documen any in this visit Goals Goal Associated Problem Outcome Goal Met? Visit Notes Patient/caregiver will demonstrate ability to obtain, store, identify and administer ordered medications, keep accurate medication list in home, and adhere to medication schedule Description: Patient/caregiver will demonstrate ability to obtain, store, identify and administer ordered medications, keep accurate medication list in home, and adhere to medication schedule by 11/11/24. Medication Education No Patient/caregiver will be able to identify and report symptoms of sepsis Description: Patient/caregiver will be able to identify signs/symptoms of sepsis infection and will verbalize actions to take if suspected by 11/11/24. Sepsis No Patient will be referred to additional discipline as needed PUBLIC EMPLOYMENT MEDIATOR Referral Completed Yes Patient will be referred to additional discipline as needed SUPERVISOR OF INSTRUCTION Referral Completed Yes Manage Risk for falls Description: Patient/caregiver will verbalize knowledge of individualized fall prevention strategies by 11/11/24. Risk for Falls No Manage Nutrition/Hydration Description: Patient/caregiver will verbalize/demonstrate knowledge of prescribed diet and/or healthy nutrition to be achieved by 10/14/24. Nutrition/Hydration No Patient/caregiver will teach back high risk medication side effect and precaution education Description: STG Patient/caregiver will verbalize understanding of high risk medication side effects and precautions to be achieved by 10/14/24. LTG Patient/caregiver will continue to verbalize understanding of high risk medication side effects and precautions throughout certification period. High Risk Medications No Patient demonstrates baseline or optimal neurological functioning prior to discharge Description: Patient and/or caregiver will verbalize and/or demonstrate understanding of signs and symptoms of neurological disease process and management of jail effects and risk factors by 10/14/24,. SN Neurological No Improved management of cardiovascular disease Description: Improve patient/caregiver management of cardiac disease as evidenced by patient/caregiver ability to teach back cardiac management strategies by 10/14/24. SN Cardiovascular Condition No Demonstrate understanding of education Description: Patient and/or caregiver will verbalize understanding of educational instruction provided throughout certification period. SN Learning Assessment No Patient/Caregiver will verbalize understanding and demonstrate improved management of genitourinary disease/condition. Description: Patient/Caregiver will state understanding of genitourinary disease/condition and be able to teach back management strategies by 10/14/24. SN Genitourinary disease process No Patient to maintain parameters within physician-specified ranges throughout certification period Physician Specific Parameters No Interventions Intervention Associated Problem/Goal Status Variance Visit Notes Medication Education Description: Evaluate/instruct patient/caregiver on obtaining, storing, identifying and administering ordered medications as well as keeping accurate medication list in the home and adhereing to medication schedule Problem:Medication Education Goal:Patient/caregiver will demonstrate ability to obtain, store, identify and administer ordered medications, keep accurate medication list in home, and adhere to medication schedule Completed Patient instructed on adhering to medication schedule. Risk of Sepsis Description: Patient is at risk for sepsis. Monitor closely for s/s of sepsis. Problem:Sepsis Goal:Patient/caregiver will be able to identify and report symptoms of sepsis Completed Instruct on individual fall risk factors and strategies to prevent falls and injuries caused by falls. Problem:Risk for Falls Goal:Manage Risk for falls Completed SN: Patient instructed on Eliminating Environmental Hazards: Keep pathways clear and Keep rooms and walkways well lit Define patient s appetite/hydration status and implement strategies to improve compliance with prescribed diet and/or healthy nutrition. Problem:Nutrition/Hydr ation Goal:Manage Nutrition/Hydration Completed reinforced patient on implementing strategies to comply with healthy nutrition and adequate hydration Anticoagulant- educated on high risk medication Problem:High Risk Medications Goal:Patient/caregiver will teach back high risk medication side effect and precaution education Completed patient educated on anticoagulant medication eliquis Take your medication as instructed and at the same time each day. Do not stop medication or alter doses without speaking with your provider. Discuss medication effectiveness or side effect concerns with your provider and home care team. Discuss all medications you are taking, even [id number] medicines, with your provider and pharmacist since many drugs can interact with anticoagulants. Tell anyone providing medical or dental care that you are taking an anticoagulant. DO NOT STOP your medication even for a minor procedure like dental work without first checking with the provider. If you forget to take a dose, DO NOT take a double dose. Take the missed dose as soon as possible on the same day. DO NOT take a double dose the next day to make up for the missed dose. Watch for signs of abnormal or excessive bleeding and bruising (refer to Bleeding Precautions education). Call your health care provider right away if you suspect something is wrong. Assess patient neurological and behavioral status and instruct patient and/or caregiver on neurological disease process, termite technician effects, and effective management strategies Description: Patient has diagnosis of CVA. Problem:SN Neurological Goal:Patient demonstrates baseline or optimal neurological functioning prior to discharge Completed patient instructed on disease process and when to seek medical attention and when to call 911. Instruct on cardiovascular disease process and management of condition Description: Patient has following cardiac diagnosis(es): AFIB and Hypertension. Problem:SN Cardiovascular Condition Goal:Improved management of cardiovascular disease Completed patient instructed on self monitoring & symptom reporting. Instruct and educate on knowledge deficits Problem:SN Learning Assessment Goal:Demonstrate understanding of education Completed patient verbalize and/or demonstrate understanding of nursing education completed today. Education methods include: verbal cues. Further education required to improve knowledge and compliance with cardiac disease management, fall prevention/home safety strategies, medication management and nutrition. Incontinence- Instruct Patient/Caregiver on measures to manage urinary incontinence Problem:SN Genitourinary disease process Goal:Patient/Caregiver will verbalize understanding and demonstrate improved management of genitourinary disease/condition. Completed patient instructed on measures to manage Urinary incontinence including: scheduled bathroom trips. Heart Rate Description: Notify NICO J. Suppan if heart rate < 60 or > 120 at rest. Problem:Physician Specific Parameters Goal:Patient to maintain parameters within physician-specified ranges throughout certification period Completed Blood Pressure Description: Notify NICO VieyraDotty Suppan if resting SBP is <100 or >160. Problem:Physician Specific Parameters Goal:Patient to maintain parameters within physician-specified ranges throughout certification period Completed SPO2 Description: Notify AVIATION ELECTRONIC WARFARE OPERATOR J Suppan if pulse ox is <92% at rest. Problem:Physician Specific Parameters Goal:Patient to maintain parameters within physician-specified ranges throughout certification period Completed documented in this encounter [facility] home Plan of care note* Visit Details Visit Type -SUPERVISOR OF INSTRUCTION ROUTINE Discipline -Speech Language Pathology Problems Problem Description Start Date Status Goals Interve ntions Medication Education Disciplines: Skilled Services 09/22/2024 Active 1 goal linked to scheduled/document ed intervention 1 goal intervention scheduled/document ed in this visit Sepsis Disciplines: Skilled Services 09/22/2024 Active 1 goal linked to scheduled/document ed intervention 1 goal intervention scheduled/document ed in this visit SUPERVISOR OF INSTRUCTION Referral Disciplines: Skilled Services 09/22/2024 Resolved on 09/29/2024 1 goal linked to scheduled/document ed intervention 1 goal intervention scheduled/document ed in this visit Risk for Falls Disciplines: Skilled Services 09/22/2024 Active 1 goal linked to scheduled/document ed intervention 1 goal intervention scheduled/document ed in this visit Pain Disciplines: Skilled Services 09/22/2024 Active 1 goal linked to scheduled/document ed intervention 1 goal intervention scheduled/document ed in this visit Nutrition/Hydra tion Disciplines: Skilled Services 09/22/2024 Active 1 goal linked to scheduled/document ed intervention 1 goal intervention scheduled/document ed in this visit High Risk Medications Disciplines: Skilled Services 09/22/2024 Active 1 goal linked to scheduled/document ed intervention 1 goal intervention scheduled/document ed in this visit Discharge Disciplines: Skilled Services 09/22/2024 Active 1 goal linked to scheduled/document ed intervention 1 goal intervention scheduled/document ed in this visit Physician Specific Parameters Disciplines: Skilled Services 09/22/2024 Active 1 goal linked to scheduled/document ed intervention 3 goal interventions scheduled/document ed in this visit SUPERVISOR OF INSTRUCTION Learning Assessment Disciplines: SUPERVISOR OF INSTRUCTION 09/23/2024 Active 1 goal linked to scheduled/document ed intervention 1 goal intervention scheduled/document ed in this visit SUPERVISOR OF INSTRUCTION Language Reading Comprehension Disciplines: SUPERVISOR OF INSTRUCTION 09/23/2024 Active 2 goals linked to scheduled/document ed interventions 2 goal interventions scheduled/document ed in this visit SUPERVISOR OF INSTRUCTION Language Auditory Comprehension Disciplines: SUPERVISOR OF INSTRUCTION 09/23/2024 Active 2 goals linked to scheduled/document ed interventions 2 goal interventions scheduled/document ed in this visit SUPERVISOR OF INSTRUCTION Language Verbal Expression Disciplines: SUPERVISOR OF INSTRUCTION 09/23/2024 Active 2 goals linked to scheduled/document ed interventions 2 goal interventions scheduled/document ed in this visit SUPERVISOR OF INSTRUCTION Cognition Memory Disciplines: SUPERVISOR OF INSTRUCTION 09/23/2024 Active 1 goal linked to scheduled/document ed intervention 1 goal intervention scheduled/document ed in this visit SUPERVISOR OF INSTRUCTION Cognition Executive Function/Proble m Solving/Reasoni ng Disciplines: SUPERVISOR OF INSTRUCTION 09/23/2024 Active 2 goals linked to scheduled/document ed interventions 2 goal interventions scheduled/document ed in this visit Goals Goal Associated Problem Outcome Goal Met? Visit Notes Patient/caregiver will demonstrate ability to obtain, store, identify and administer ordered medications, keep accurate medication list in home, and adhere to medication schedule Description: Patient/caregiver will demonstrate ability to obtain, store, identify and administer ordered medications, keep accurate medication list in home, and adhere to medication schedule by 11/11/24. Medication Education No Patient/caregiver will be able to identify and report symptoms of sepsis Description: Patient/caregiver will be able to identify signs/symptoms of sepsis infection and will verbalize actions to take if suspected by 11/11/24. Sepsis No Patient will be referred to additional discipline as needed SUPERVISOR OF INSTRUCTION Referral No Manage Risk for falls Description: Patient/caregiver will verbalize knowledge of individualized fall prevention strategies by 11/11/24. Risk for Falls No Manage Pain Description: Patient/caregiver will verbalize knowledge and understanding of appropriate techniques to control pain, including pain medication. Patient will verbalize or demonstrate an acceptable level of pain as evidenced by a pain score of <4/10 and improvement in ability to perform activities of daily living to be achieved by 11/11/24. Pain No Manage Nutrition/Hydration Description: Patient/caregiver will verbalize/demonstrate knowledge of prescribed diet and/or healthy nutrition to be achieved by 10/14/24. Nutrition/Hydration No Patient/caregiver will teach back high risk medication side effect and precaution education Description: STG Patient/caregiver will verbalize understanding of high risk medication side effects and precautions to be achieved by 10/14/24. LTG Patient/caregiver will continue to verbalize understanding of high risk medication side effects and precautions throughout certification period. High Risk Medications No Manage discharge planning Description: Patient/caregiver will verbalize understanding of ongoing discharge plan provided related to disease management, arrangements for outpatient and/or community services, obtaining medications, supplies, and DME, as needed throughout certification period. Discharge No Patient to maintain parameters within physician-specified ranges throughout certification period Physician Specific Parameters No Patient/Caregiver Demonstrates understanding of education Description: patient, caregiver will understand educational instruction, to be achieved by 10/16/24. SUPERVISOR OF INSTRUCTION Learning Assessment No Improve Reading Comprehension STG Description: Patient will demonstrate ability to read sentences for improved ability to function in the home and community as evidenced by pictures to sentences, comprehension questions and following written instructions with minimal cues in 80% accuracy. To be achieved by 10/16/24. SUPERVISOR [employer] INSTRUCTION Language Reading Comprehension No Improve Reading Comprehension LTG Description: Patient will demonstrate ability to read at sentence level for improved ability to function in the home and community as evidenced by pictures to sentences, comprehension questions and following written instructions with minimal cues in 90% accuracy. To be achieved by 10/09/24. [employer]PER[employer]STRU[employer] Language Reading Comprehension No Improve Auditory Comprehension STG Description: Patient/caregiver will improve comprehension of following multi-step directions, complex yes/no and open ended questions with minimal cues in 80% accuracy. To be achieved by 10/09/24. [employer]PER[employer]OR [employer]STRU[employer] Language Auditory Comprehension No Improve Auditory Comprehension LTG Description: Patient/caregiver will demonstrate comprehension of complex conversational information to improve interaction needs with minimal cues in 90% accuracy. To be achieved by 10/16/24. [employer]PERVISOR [employer]STRU[employer] Language Auditory Comprehension No Improve Verbal Expression STG Description: Patient/caregiver will produce sentence completion, description, confrontation naming and response naming to indicate thoughts, wants, needs and ideas with others, with minimal verbal and semantic cues with/in 80% accuracy. To be achieved by 10/09/24. SUPERVISOR [employer]STRU[employer] Language Verbal Expression No Improve Verbal Expression LTG Description: Patient/caregiver will demonstrate improved verbal communication skills at a sentence level to improve communication interaction of basic social/medical needs with minimal verbal and semantic cues in 90% accuracy. To be achieved by 10/16/24. SUPERVISOR [employer] INSTRUCTION Language Verbal Expression No Improve Memory Skills STG Description: Patient/caregiver will verbalize/demonstrate awareness of memory strategies for short term memory information with minimal cues verbally and visually with/in 65% accuracy. To be achieved by 10/09/24. SUPERVISOR [employer] INSTRUCTION Cognition Memory No Improve Problem Solving or Reasoning Description: Patient will complete problem solving or reasoning tasks related to basic mathematic skills generate solutions, sequencing and situation problem solving with minimal cueing with/in 70% accuracy. To be achieved by 10/09/24. SUPERVISOR [employer] INSTRUCTION Cognition Executive Function/Problem Solving/Reasoning No Improve Executive Function, Problem Solving And Reasoning LTG Description: Patient will demonstrate ability to use strategies and techniques to improve planning and self monitoring skills, problem solving and reasoning skills for completion of tasks in home environment: home maintenance and medication management with minimal cueing with/in 70% accuracy, to improve independence. To be achieved by 10/16/24. SUPERVISOR [employer] INSTRUCTION Cognition Executive Function/Problem Solving/Reasoning No Interventions Intervention Associated Problem/Goal Status Variance Visit Notes Medication Education Description: Evaluate/instruct patient/caregiver on obtaining, storing, identifying and administering ordered medications as well as keeping accurate medication list in the home and adhereing to medication schedule Problem:Medication Education Goal:Patient/caregive r will demonstrate ability to obtain, store, identify and administer ordered medications, keep accurate medication list in home, and adhere to medication schedule Completed Patient and Caregiver instructed on importance of keeping accurate medication list in home, need to take up-to-date medication list to all medical provider appointments and adhering to medication schedule. Risk of Sepsis Description: Patient is at risk for sepsis. Monitor closely for s/s of sepsis. Problem:Sepsis Goal:Patient/caregive r will be able to identify and report symptoms of sepsis Completed SUPERVISOR [employer] INSTRUCTION evaluation and treatment Description: ST Referral eval and treat for Impaired verbal expression and memory and establish HEP. Problem:SUPERVISOR OF INSTRUCTION Referral Goal:Patient will be referred to additional discipline as needed Completed Instruct on individual fall risk factors and strategies to prevent falls and injuries caused by falls. Problem:Risk for Falls Goal:Manage Risk for falls Completed SUPERVISOR OF INSTRUCTION: Patient instructed on Managing Impaired Functional Mobility: Use assistive device(s): rollator walker. Instruct on pain and instruct on strategies to control pain Problem:Pain Goal:Manage Pain Completed patient and caregiver instructed on techniques to control pain including Pharmacological measures and Non-Pharmacological measures; rest. Define patient s appetite/hydration status and implement strategies to improve compliance with prescribed diet and/or healthy nutrition. Problem:Nutrition/Hyd ration Goal:Manage Nutrition/Hydration Completed reinforced patient and caregiver on implementing strategies to comply with healthy nutrition and adequate hydration Anticoagulant- educated on high risk medication Problem:High Risk Medications Goal:Patient/caregive r will teach back high risk medication side effect and precaution education Completed patient and caregiver educated on anticoagulant medication eliquis Take your medication as instructed and at the same time each day. Do not stop medication or alter doses without speaking with your provider. Discuss medication effectiveness or side effect concerns with your provider and home care team. Discuss all medications you are taking, even [id number] medicines, with your provider and pharmacist since many drugs can interact with anticoagulants. Tell anyone providing medical or dental care that you are taking an anticoagulant. DO NOT STOP your medication even for a minor procedure like dental work without first checking with the provider. If you forget to take a dose, DO NOT take a double dose. Take the missed dose as soon as possible on the same day. DO NOT take a double dose the next day to make up for the missed dose. Watch for signs of abnormal or excessive bleeding and bruising (refer to Bleeding Precautions education). Call your health care provider right away if you suspect something is wrong. Instruct on ongoing discharge plan Problem:Discharge Goal:Manage discharge planning Completed Ongoing Discharge plan: Discharge plan discussed with patient including frequency and duration for home ST and plan for transition to: caregiver assistance. Heart Rate Description: Notify NICO Deutsch if heart rate < 60 or > 120 at rest. Problem:Physician Specific Parameters Goal:Patient to maintain parameters within physician-specified ranges throughout certification period Completed Blood Pressure Description: Notify NICO Deutsch if resting SBP is <100 or >160. Problem:Physician Specific Parameters Goal:Patient to maintain parameters within physician-specified ranges throughout certification period Completed SPO2 Description: Notify NICO Lemon Suppsamantha if pulse ox is <92% at rest. Problem:Physician Specific Parameters Goal:Patient to maintain parameters within physician-specified ranges throughout certification period Completed Assessment of patient/caregiver knowledge deficit and educational instruction Problem:SUPERVISOR OF INSTRUCTION Learning Assessment Goal:Patient/Caregive r Demonstrates understanding of education Completed Education methods include: verbal cues, written instructions, visual cues and teach back. Further education required to improve knowledge and compliance with functional cognitive and language skills. Reading Exercise Instruction Problem:SUPERVISOR [employer] INSTRUCTION Language Reading Comprehension Goal:Improve Reading Comprehension STG Completed SUPERVISOR [employer] INSTRUCTION instructed patient/caregiver to demonstrate reading comprehension of sentences and paragraphs with comprehension questions, patient/caregiver completed with no cues in 10/10 trials. Reading Exercise Instruction Problem:SUPERVISOR [employer] INSTRUCTION Language Reading Comprehension Goal:Improve Reading Comprehension LTG Completed SUPERVISOR [employer] INSTRUCTION instructed patient/caregiver to demonstrate reading comprehension of sentences and paragraphs with comprehension questions, patient/caregiver completed with minimal cues in 10/10 trials. Auditory Comprehension Instruction Problem:SUPERVISOR [employer] INSTRUCTION Language Auditory Comprehension Goal:Improve Auditory Comprehension STG Completed SUPERVISOR [employer] INSTRUCTION instructed/cued patient to complete the following tasks to improve auditory comprehension skills complex yes/no, comprehend Wh questions, open ended questions and closed ended questions with minimal cues in 10/10 trials. Auditory Comprehension Instruction Problem:SUPERVISOR [employer] INSTRUCTION Language Auditory Comprehension Goal:Improve Auditory Comprehension LTG Completed SUPERVISOR [employer] INSTRUCTION instructed/cued patient to complete the following tasks to improve auditory comprehension skills complex yes/no, comprehend Wh questions, open ended questions and closed ended questions with minimal cues in 100% trials. Verbal Expression Problem:SUPERVISOR [employer] INSTRUCTION Language Verbal Expression Goal:Improve Verbal Expression STG Completed SUPERVISOR [employer] INSTRUCTION instructed patient to produce description, responses to Wh questions, responses to open ended questions, responses to closed ended questions and confrontation naming to indicate thoughts, wants, needs and ideas with others, with minimal verbal cues with/in 8/10 trials. Verbal Expression Problem:SUPERVISOR [employer] INSTRUCTION Language Verbal Expression Goal:Improve Verbal Expression LTG Completed SUPERVISOR [employer] INSTRUCTION instructed patient to produce description, responses to Wh questions, responses to open ended questions and responses to closed ended questions to indicate thoughts, wants, needs and ideas with others, with minimal verbal and semantic cues with/in 8/10 trials. Memory Strategy Education Memory Exercises and Techniques Problem:SUPERVISOR [employer] INSTRUCTION Cognition Memory Goal:Improve Memory Skills STG Completed Instructed patient/caregiver on use of memory strategies writing, repetition, association and calendar to improve ability to recall immediate memory tasks and short term memory tasks patient completed with minimal cueing with/in 10/12 trials. Problem Solving Reasoning Problem:SUPERVISOR OF INSTRUCTION Cognition Executive Function/Problem Solving/Reasoning Goal:Improve Problem Solving or Reasoning Completed Instructed patient on exercises and tasks to improve planning and self-monitoring skills for completion of tasks in home environment: cause and effect and reasoning, patient completed with minimal cueing with/in 7/7 trials. Executive Function Problem Solving Reasoning Problem:SUPERVISOR OF INSTRUCTION Cognition Executive Function/Problem Solving/Reasoning Goal:Improve Executive Function, Problem Solving And Reasoning LTG Completed SUPERVISOR OF INSTRUCTION instructed patient to complete exercises for improved problem solving and reasoning skills for completion of tasks in home environment bill paying, shopping, home maintenance, medication management, cell phone use and scheduling with moderate cueing, patient able to complete with/in 5/7 trials. documented in this encounter [facility] home Plan of care note* Visit Details Visit Type -OT EVAL Discipline -Occupational Therapy Problems Problem Description Start Date Status Goals Interve ntions Medication Education Disciplines: Skilled Services 09/22/2024 Active 1 goal linked to scheduled/documen any intervention 1 goal intervention scheduled/document ed in this visit Sepsis Disciplines: Skilled Services 09/22/2024 Active 1 goal linked to scheduled/documen any intervention 1 goal intervention scheduled/document ed in this visit OT Referral Disciplines: Skilled Services 09/22/2024 Resolved on 10/01/2024 1 goal linked to scheduled/documen any intervention 1 goal intervention scheduled/document ed in this visit Risk for Falls Disciplines: Skilled Services 09/22/2024 Active 1 goal linked to scheduled/documen any intervention 1 goal intervention scheduled/document ed in this visit Pain Disciplines: Skilled Services 09/22/2024 Active 1 goal linked to scheduled/documen any intervention 1 goal intervention scheduled/document ed in this visit Discharge Disciplines: Skilled Services 09/22/2024 Active 1 goal linked to scheduled/documen any intervention 1 goal intervention scheduled/document ed in this visit Physician Specific Parameters Disciplines: Skilled Services 09/22/2024 Active 1 goal linked to scheduled/documen any intervention 3 goal interventions scheduled/document ed in this visit OT Functional Transfers Disciplines: OT 10/01/2024 Active 1 goal linked to scheduled/documen any intervention 1 goal intervention scheduled/document ed in this visit Goals Goal Associated Problem Outcome Goal Met? Visit Notes Patient/caregiver will demonstrate ability to obtain, store, identify and administer ordered medications, keep accurate medication list in home, and adhere to medication schedule Description: Patient/caregiver will demonstrate ability to obtain, store, identify and administer ordered medications, keep accurate medication list in home, and adhere to medication schedule by 11/11/24. Medication Education No Patient/caregiver will be able to identify and report symptoms of sepsis Description: Patient/caregiver will be able to identify signs/symptoms of sepsis infection and will verbalize actions to take if suspected by 11/11/24. Sepsis No Patient will be referred to additional discipline as needed OT Referral Completed Yes Manage Risk for falls Description: Patient/caregiver will verbalize knowledge of individualized fall prevention strategies by 11/11/24. Risk for Falls No Manage Pain Description: Patient/caregiver will verbalize knowledge and understanding of appropriate techniques to control pain, including pain medication. Patient will verbalize or demonstrate an acceptable level of pain as evidenced by a pain score of <4/10 and improvement in ability to perform activities of daily living to be achieved by 11/11/24. Pain No Manage discharge planning Description: Patient/caregiver will verbalize understanding of ongoing discharge plan provided related to disease management, arrangements for outpatient and/or community services, obtaining medications, supplies, and DME, as needed throughout certification period. Discharge No Patient to maintain parameters within physician-specified ranges throughout certification period Physician Specific Parameters No Improved Functional Transfers Description: patient will demonstrate safe transfers to/from toilet and shower/tub with independent assistance and no verbal cues with use of DME to be achieved by 10/30/24. OT Functional Transfers No Interventions Intervention Associated Problem/Goal Status Variance Visit Notes Medication Education Description: Evaluate/instruct patient/caregiver on obtaining, storing, identifying and administering ordered medications as well as keeping accurate medication list in the home and adhereing to medication schedule Problem:Medication Education Goal:Patient/caregiv er will demonstrate ability to obtain, store, identify and administer ordered medications, keep accurate medication list in home, and adhere to medication schedule Completed Patient and Caregiver instructed on importance of keeping accurate medication list in home and adhering to medication schedule. Risk of Sepsis Description: Patient is at risk for sepsis. Monitor closely for s/s of sepsis. Problem:Sepsis Goal:Patient/caregiv er will be able to identify and report symptoms of sepsis Completed OT evaluation and treatment Description: Evaluate and treat for the assessment of functional deficits and establishment of appropriate interventions and education to address: I/ADL training, DME/adaptive equipment recommendations, safety awareness, home safety and falls prevention recommendations and upper extremity strengthening and home exercise program training. Pt is R hand dominant and unable to use R hand for fine motor skills. Problem:OT Referral Goal:Patient will be referred to additional discipline as needed Completed Instruct on individual fall risk factors and strategies to prevent falls and injuries caused by falls. Problem:Risk for Falls Goal:Manage Risk for falls Completed OT: Patient instructed on Eliminating Environmental Hazards: Keep pathways clear, Remove unsafe rugs and Keep rooms and walkways well lit Instruct on pain and instruct on strategies to control pain Problem:Pain Goal:Manage Pain Completed patient instructed on techniques to control pain including Pharmacological measures. Instruct on ongoing discharge plan Problem:Discharge Goal:Manage discharge planning Completed Ongoing Discharge plan: Discharge plan discussed with patient including frequency and duration for home OT and plan for transition to: caregiver assistance. Heart Rate Description: Notify NICO J. Suppan if heart rate < 60 or > 120 at rest. Problem:Physician Specific Parameters Goal:Patient to maintain parameters within physician-specified ranges throughout certification period Completed Blood Pressure Description: Notify NICO Luisline Suppan if resting SBP is <100 or >160. Problem:Physician Specific Parameters Goal:Patient to maintain parameters within physician-specified ranges throughout certification period Completed SPO2 Description: Notify NICO J Suppan if pulse ox is <92% at rest. Problem:Physician Specific Parameters Goal:Patient to maintain parameters within physician-specified ranges throughout certification period Completed Transfer Training Problem:OT Functional Transfers Goal:Improved Functional Transfers Completed Instruct patient on safe transfers and proper techniques including slow positional changes to perform to and from toilet and shower/tub with Min assistance and verbal and tactile cues for use of grab bars, safety. education and training on the following adaptive equipment/durable medical equipment:grab bar(s) and shower chair. [facility] Visit Details Visit Type -CARDIAC CARE NURSE ROUTINE Discipline -Physical Therapy Problems Problem Description Start Date Status Goals Interve ntions Medication Education Disciplines: Skilled Services 09/22/2024 Active 1 goal linked to scheduled/document ed intervention 1 goal intervention scheduled/document ed in this visit Sepsis Disciplines: Skilled Services 09/22/2024 Active 1 goal linked to scheduled/document ed intervention 1 goal intervention scheduled/document ed in this visit Risk for Falls Disciplines: Skilled Services 09/22/2024 Active 1 goal linked to scheduled/document ed intervention 1 goal intervention scheduled/document ed in this visit Pain Disciplines: Skilled Services 09/22/2024 Active 1 goal linked to scheduled/document ed intervention 1 goal intervention scheduled/document ed in this visit Discharge Disciplines: Skilled Services 09/22/2024 Active 1 goal linked to scheduled/document ed intervention 1 goal intervention scheduled/document ed in this visit Physician Specific Parameters Disciplines: Skilled Services 09/22/2024 Active 1 goal linked to scheduled/document ed intervention 3 goal interventions scheduled/document ed in this visit PT Impaired muscle performance and/or ROM Disciplines: PT 09/25/2024 Active 1 goal linked to scheduled/document ed intervention 1 goal intervention scheduled/document ed in this visit PT Impaired gait Disciplines: PT 09/25/2024 Active 2 goals linked to scheduled/document ed interventions 2 goal interventions scheduled/document ed in this visit PT Impaired balance Disciplines: PT 09/25/2024 Active 1 goal linked to scheduled/document ed intervention 1 goal intervention scheduled/document ed in this visit PT Neurologic Condition Disciplines: PT 09/25/2024 Active 1 goal linked to scheduled/document ed intervention 1 goal intervention scheduled/document ed in this visit PT Learning Assessment Disciplines: PT 09/25/2024 Active 1 goal linked to scheduled/document ed intervention 1 goal intervention scheduled/document ed in this visit Goals Goal Associated Problem Outcome Goal Met? Visit Notes Patient/caregiver will demonstrate ability to obtain, store, identify and administer ordered medications, keep accurate medication list in home, and adhere to medication schedule Description: Patient/caregiver will demonstrate ability to obtain, store, identify and administer ordered medications, keep accurate medication list in home, and adhere to medication schedule by 11/11/24. Medication Education No Patient/caregiver will be able to identify and report symptoms of sepsis Description: Patient/caregiver will be able to identify signs/symptoms of sepsis infection and will verbalize actions to take if suspected by 11/11/24. Sepsis No Manage Risk for falls Description: Patient/caregiver will verbalize knowledge of individualized fall prevention strategies by 11/11/24. Risk for Falls No Manage Pain Description: Patient/caregiver will verbalize knowledge and understanding of appropriate techniques to control pain, including pain medication. Patient will verbalize or demonstrate an acceptable level of pain as evidenced by a pain score of <4/10 and improvement in ability to perform activities of daily living to be achieved by 11/11/24. Pain No Manage discharge planning Description: Patient/caregiver will verbalize understanding of ongoing discharge plan provided related to disease management, arrangements for outpatient and/or community services, obtaining medications, supplies, and DME, as needed throughout certification period. Discharge No Patient to maintain parameters within physician-specified ranges throughout certification period Physician Specific Parameters No Improved Muscle Performance and/or ROM Description: LTG: Patient will demonstrate improved muscle performance to meet functional goals as evidenced by ability to tolerate 15 minutes of therapeutic activity, to be achieved by 10/16/24. . STG: Patient and/or caregiver will verbalize/demonstrate independence with home exercise program, to improve functional mobility, to be achieved by 10/02/24. . PT Impaired muscle performance and/or ROM No Improved Stair Climbing Description: LTG: Patient will demonstrate improved stair negotiation as evidenced by ascend/descend 1 steps with cane and grab bar independently, to safely access all areas of the home, to be achieved by 10/16/24. . PT Impaired gait No Improved Gait Description: LTG: Patient will demonstrate improved gait ability as evidenced by ambulation 200 feet with rollator walker independently with AD, in order to resume walking around the [place] with her friends , to be achieved by 10/16/24. . LTG: Patient will demonstrate improved gait ability as evidenced by ambulation 100 feet with single point cane independently with AD in the home , to return to safe household ambulation, in order to return to plf , to be achieved by 10/16/24. . PT Impaired gait No Improved Balance Description: LTG: Patient will demonstrate improved standing balance to meet functional goals as evidenced by TUG score of <25 to be achieved by 10/16/24. PT Impaired balance No Manage Neurologic Condition Description: Improve patient and/or caregiver understanding of post surgical and/or non-surgical neurologic intervention management as evidenced by patient and/or caregiver able to verbalize, demonstrate, and teach back instruction, to be achieved by 10/16/24. . PT Neurologic Condition No Demonstrate understanding of education Description: Patient and/or caregiver will understand educational instruction to be achieved by 10/16/24. . PT Learning Assessment No Interventions Intervention Associated Problem/Goal Status Variance Visit Notes Medication Education Description: Evaluate/instruct patient/caregiver on obtaining, storing, identifying and administering ordered medications as well as keeping accurate medication list in the home and adhereing to medication schedule Problem:Medication Education Goal:Patient/caregive r will demonstrate ability to obtain, store, identify and administer ordered medications, keep accurate medication list in home, and adhere to medication schedule Completed Patient and Caregiver instructed on importance of keeping accurate medication list in home. Risk of Sepsis Description: Patient is at risk for sepsis. Monitor closely for s/s of sepsis. Problem:Sepsis Goal:Patient/caregive r will be able to identify and report symptoms of sepsis Completed Instruct on individual fall risk factors and strategies to prevent falls and injuries caused by falls. Problem:Risk for Falls Goal:Manage Risk for falls Completed PT: Patient instructed on Managing Impaired Functional Mobility: Use assistive device(s): rollator walker Instruct on pain and instruct on strategies to control pain Problem:Pain Goal:Manage Pain Completed patient instructed on techniques to control pain including Non-Pharmacological measures; mobility/therapeutic exercise. Instruct on ongoing discharge plan Problem:Discharge Goal:Manage discharge planning Completed Ongoing Discharge plan: Discharge plan discussed with patient and caregiver including frequency and duration for home PT and plan for transition to: live independently at home without ongoing services. Heart Rate Description: Notify NICO Deutsch if heart rate < 60 or > 120 at rest. Problem:Physician Specific Parameters Goal:Patient to maintain parameters within physician-specified ranges throughout certification period Completed Blood Pressure Description: Notify NICO Deutsch if resting SBP is <100 or >160. Problem:Physician Specific Parameters Goal:Patient to maintain parameters within physician-specified ranges throughout certification period Completed SPO2 Description: Notify NICO Lemon Suppsamantha if pulse ox is <92% at rest. Problem:Physician Specific Parameters Goal:Patient to maintain parameters within physician-specified ranges throughout certification period Completed Physical Therapy Therapeutic Exercises Problem:PT Impaired muscle performance and/or ROM Goal:Improved Muscle Performance and/or ROM Completed patient and caregiver instructed on strengthening exercises including standing heel toe rasies, hip abd and flexion, hams curls and 1/4 squats x's 15each step ups x's 5 each with verbal, visual and written cues for form and hold times. patient and caregiver instructed to perform home exercise program daily which included above ex. Physical Therapy Stair Training Problem:PT Impaired gait Goal:Improved Stair Climbing Completed Stair training and instruction to patient and caregiver on safe stair climbing,step ups {. Physical Therapy Gait Training Problem:PT Impaired gait Goal:Improved Gait Completed Gait training and instruction to patient and caregiver on safe ambulation with rollator walker for 2x'100 feet with supervision, with verbal cues for corrections of gait deviations including posture and increased step height. Physical Therapy Balance Training Problem:PT Impaired balance Goal:Improved Balance Completed Developed, implemented, and instructed patient and caregiver on standing balance exercises including tpoe taps w/ unilateral ue support and side stepping at counter . Instruct on self-management of post surgical and/or non-surgical neurologic intervention Problem:PT Neurologic Condition Goal:Manage Neurologic Condition Completed patient and caregiver nstructed on instructed on when to call [phone] (balance, eyes, face, arms, speech, time). Instruct and educate on knowledge deficits Problem:PT Learning Assessment Goal:Demonstrate understanding of education Completed patient verbalize and/or demonstrate understanding of physical therapy education including home exercise program. Education methods include: verbal cues and visual cues. Further education required to improve knowledge and compliance with home exercise program. documented in this encounter [facility] home Plan of care note* Visit Details Visit Type -SUPERVISOR OF INSTRUCTION ROUTINE Discipline -Speech Language Pathology Problems Problem Description Start Date Status Goals Interve ntions Medication Education Disciplines: Skilled Services 09/22/2024 Active 1 goal linked to scheduled/document ed intervention 1 goal intervention scheduled/document ed in this visit Sepsis Disciplines: Skilled Services 09/22/2024 Active 1 goal linked to scheduled/document ed intervention 1 goal intervention scheduled/document ed in this visit Risk for Falls Disciplines: Skilled Services 09/22/2024 Active 1 goal linked to scheduled/document ed intervention 1 goal intervention scheduled/document ed in this visit Pain Disciplines: Skilled Services 09/22/2024 Active 1 goal linked to scheduled/document ed intervention 1 goal intervention scheduled/document ed in this visit Nutrition/Hydra tion Disciplines: Skilled Services 09/22/2024 Active 1 goal linked to scheduled/document ed intervention 1 goal intervention scheduled/document ed in this visit High Risk Medications Disciplines: Skilled Services 09/22/2024 Active 1 goal linked to scheduled/document ed intervention 1 goal intervention scheduled/document ed in this visit Discharge Disciplines: Skilled Services 09/22/2024 Active 1 goal linked to scheduled/document ed intervention 1 goal intervention scheduled/document ed in this visit Physician Specific Parameters Disciplines: Skilled Services 09/22/2024 Active 1 goal linked to scheduled/document ed intervention 3 goal interventions scheduled/document ed in this visit SUPERVISOR OF INSTRUCTION Learning Assessment Disciplines: SUPERVISOR OF INSTRUCTION 09/23/2024 Active 1 goal linked to scheduled/document ed intervention 1 goal intervention scheduled/document ed in this visit SUPERVISOR OF INSTRUCTION Language Auditory Comprehension Disciplines: SUPERVISOR OF INSTRUCTION 09/23/2024 Resolved on 10/04/2024 2 goals linked to scheduled/document ed interventions 2 goal interventions scheduled/document ed in this visit SUPERVISOR OF INSTRUCTION Language Verbal Expression Disciplines: SUPERVISOR OF INSTRUCTION 09/23/2024 Active 2 goals linked to scheduled/document ed interventions 2 goal interventions scheduled/document ed in this visit SUPERVISOR OF INSTRUCTION Cognition Memory Disciplines: SUPERVISOR OF INSTRUCTION 09/23/2024 Active 1 goal linked to scheduled/document ed intervention 1 goal intervention scheduled/document ed in this visit SUPERVISOR OF INSTRUCTION Cognition Executive Function/Proble m Solving/Reasoni ng Disciplines: SUPERVISOR OF INSTRUCTION 09/23/2024 Active 2 goals linked to scheduled/document ed interventions 2 goal interventions scheduled/document ed in this visit Goals Goal Associated Problem Outcome Goal Met? Visit Notes Patient/caregiver will demonstrate ability to obtain, store, identify and administer ordered medications, keep accurate medication list in home, and adhere to medication schedule Description: Patient/caregiver will demonstrate ability to obtain, store, identify and administer ordered medications, keep accurate medication list in home, and adhere to medication schedule by 11/11/24. Medication Education No Patient/caregiver will be able to identify and report symptoms of sepsis Description: Patient/caregiver will be able to identify signs/symptoms of sepsis infection and will verbalize actions to take if suspected by 11/11/24. Sepsis No Manage Risk for falls Description: Patient/caregiver will verbalize knowledge of individualized fall prevention strategies by 11/11/24. Risk for Falls No Manage Pain Description: Patient/caregiver will verbalize knowledge and understanding of appropriate techniques to control pain, including pain medication. Patient will verbalize or demonstrate an acceptable level of pain as evidenced by a pain score of <4/10 and improvement in ability to perform activities of daily living to be achieved by 11/11/24. Pain No Manage Nutrition/Hydration Description: Patient/caregiver will verbalize/demonstrate knowledge of prescribed diet and/or healthy nutrition to be achieved by 10/14/24. Nutrition/Hydration No Patient/caregiver will teach back high risk medication side effect and precaution education Description: STG Patient/caregiver will verbalize understanding of high risk medication side effects and precautions to be achieved by 10/14/24. LTG Patient/caregiver will continue to verbalize understanding of high risk medication side effects and precautions throughout certification period. High Risk Medications No Manage discharge planning Description: Patient/caregiver will verbalize understanding of ongoing discharge plan provided related to disease management, arrangements for outpatient and/or community services, obtaining medications, supplies, and DME, as needed throughout certification period. Discharge No Patient to maintain parameters within physician-specified ranges throughout certification period Physician Specific Parameters No Patient/Caregiver Demonstrates understanding of education Description: patient, caregiver will understand educational instruction, to be achieved by 10/16/24. SUPERVISOR OF INSTRUCTION Learning Assessment No Improve Auditory Comprehension STG Description: Patient/caregiver will improve comprehension of following multi-step directions, complex yes/no and open ended questions with minimal cues in 80% accuracy. To be achieved by 10/09/24. SUPERVISOR OF INSTRUCTION Language Auditory Comprehension Completed Yes Goal met Improve Auditory Comprehension LTG Description: Patient/caregiver will demonstrate comprehension of complex conversational information to improve interaction needs with minimal cues in 90% accuracy. To be achieved by 10/16/24. SUPERVISOR OF INSTRUCTION Language Auditory Comprehension Completed Yes Goal met Improve Verbal Expression STG Description: Patient/caregiver will produce sentence completion, description, confrontation naming and response naming to indicate thoughts, wants, needs and ideas with others, with minimal verbal and semantic cues with/in 80% accuracy. To be achieved by 10/09/24. SUPERVISOR OF INSTRUCTION Language Verbal Expression No Improve Verbal Expression LTG Description: Patient/caregiver will demonstrate improved verbal communication skills at a sentence level to improve communication interaction of basic social/medical needs with minimal verbal and semantic cues in 90% accuracy. To be achieved by 10/16/24. SUPERVISOR OF INSTRUCTION Language Verbal Expression No Improve Memory Skills STG Description: Patient/caregiver will verbalize/demonstrate awareness of memory strategies for short term memory information with minimal cues verbally and visually with/in 65% accuracy. To be achieved by 10/09/24. SUPERVISOR OF INSTRUCTION Cognition Memory No Improve Problem Solving or Reasoning Description: Patient will complete problem solving or reasoning tasks related to basic mathematic skills generate solutions, sequencing and situation problem solving with minimal cueing with/in 70% accuracy. To be achieved by 10/09/24. SUPERVISOR OF INSTRUCTION Cognition Executive Function/Problem Solving/Reasoning No Improve Executive Function, Problem Solving And Reasoning LTG Description: Patient will demonstrate ability to use strategies and techniques to improve planning and self monitoring skills, problem solving and reasoning skills for completion of tasks in home environment: home maintenance and medication management with minimal cueing with/in 70% accuracy, to improve independence. To be achieved by 10/16/24. SUPERVISOR OF INSTRUCTION Cognition Executive Function/Problem Solving/Reasoning No Interventions Intervention Associated Problem/Goal Status Variance Visit Notes Medication Education Description: Evaluate/instruct patient/caregiver on obtaining, storing, identifying and administering ordered medications as well as keeping accurate medication list in the home and adhereing to medication schedule Problem:Medication Education Goal:Patient/caregiv er will demonstrate ability to obtain, store, identify and administer ordered medications, keep accurate medication list in home, and adhere to medication schedule Completed Patient and Caregiver instructed on adhering to medication schedule. Risk of Sepsis Description: Patient is at risk for sepsis. Monitor closely for s/s of sepsis. Problem:Sepsis Goal:Patient/caregiv er will be able to identify and report symptoms of sepsis Completed Instruct on individual fall risk factors and strategies to prevent falls and injuries caused by falls. Problem:Risk for Falls Goal:Manage Risk for falls Completed SUPERVISOR OF INSTRUCTION: Patient instructed on Managing Impaired Functional Mobility: Use assistive device(s): rollator walker. Instruct on pain and instruct on strategies to control pain Problem:Pain Goal:Manage Pain Completed patient instructed on techniques to control pain including Pharmacological measures and Non-Pharmacological measures; rest. Define patient s appetite/hydration status and implement strategies to improve compliance with prescribed diet and/or healthy nutrition. Problem:Nutrition/Hy dration Goal:Manage Nutrition/Hydration Completed reinforced patient on implementing strategies to comply with healthy nutrition and adequate hydration Anticoagulant- educated on high risk medication Problem:High Risk Medications Goal:Patient/caregiv er will teach back high risk medication side effect and precaution education Completed patient and caregiver educated on anticoagulant medication ekuquis Take your medication as instructed and at the same time each day. Do not stop medication or alter doses without speaking with your provider. Discuss medication effectiveness or side effect concerns with your provider and home care team. Discuss all medications you are taking, even [id number] medicines, with your provider and pharmacist since many drugs can interact with anticoagulants. Tell anyone providing medical or dental care that you are taking an anticoagulant. DO NOT STOP your medication even for a minor procedure like dental work without first checking with the provider. If you forget to take a dose, DO NOT take a double dose. Take the missed dose as soon as possible on the same day. DO NOT take a double dose the next day to make up for the missed dose. Watch for signs of abnormal or excessive bleeding and bruising (refer to Bleeding Precautions education). Call your health care provider right away if you suspect something is wrong. Instruct on ongoing discharge plan Problem:Discharge Goal:Manage discharge planning Completed Ongoing Discharge plan: Discharge plan discussed with patient and caregiver including frequency and duration for home ST and plan for transition to: outpatient therapy. Heart Rate Description: Notify NICO Deutsch if heart rate < 60 or > 120 at rest. Problem:Physician Specific Parameters Goal:Patient to maintain parameters within physician-specified ranges throughout certification period Completed Blood Pressure Description: Notify NICO Deutsch if resting SBP is <100 or >160. Problem:Physician Specific Parameters Goal:Patient to maintain parameters within physician-specified ranges throughout certification period Completed SPO2 Description: Notify NICO Deutsch if pulse ox is <92% at rest. Problem:Physician Specific Parameters Goal:Patient to maintain parameters within physician-specified ranges throughout certification period Completed Assessment of patient/caregiver knowledge deficit and educational instruction Problem:SUPERVISOR OF INSTRUCTION Learning Assessment Goal:Patient/Caregiv er Demonstrates understanding of education Completed Education methods include: verbal cues, written instructions and teach back. Further education required to improve knowledge and compliance with functional cognitive and home exercise program. Auditory Comprehension Instruction Problem:SUPERVISOR OF INSTRUCTION Language Auditory Comprehension Goal:Improve Auditory Comprehension STG Completed SUPERVISOR OF INSTRUCTION instructed/cued patient to complete the following tasks to improve auditory comprehension skills following multi-step directions, complex yes/no, answering questions related to autobiographical info, open ended questions and closed ended questions with no cues in 10/10 trials. Auditory Comprehension Instruction Problem:SUPERVISOR OF INSTRUCTION Language Auditory Comprehension Goal:Improve Auditory Comprehension LTG Completed SUPERVISOR OF INSTRUCTION instructed/cued patient to complete the following tasks to improve auditory comprehension skills following multi-step directions, complex yes/no, answering questions related to autobiographical info, comprehend Wh questions, open ended questions and closed ended questions with no cues in 10/10 trials. Verbal Expression Problem:SUPERVISOR OF INSTRUCTION Language Verbal Expression Goal:Improve Verbal Expression STG Completed SUPERVISOR OF INSTRUCTION instructed patient to produce responses to autobiographical questions, responses to Wh questions and response naming to indicate thoughts, wants, needs and ideas with others, with minimal verbal and semantic cues with/in 70% trials. Verbal Expression Problem:SUPERVISOR OF INSTRUCTION Language Verbal Expression Goal:Improve Verbal Expression LTG Completed SUPERVISOR OF INSTRUCTION instructed patient to produce responses to autobiographical questions, responses to Wh questions and response naming to indicate thoughts, wants, needs and ideas with others, with minimal verbal and semantic cues with/in 70% trials. Memory Strategy Education Memory Exercises and Techniques Problem:SUPERVISOR OF INSTRUCTION Cognition Memory Goal:Improve Memory Skills STG Completed Instructed patient/caregiver on use of memory strategies writing, repetition, association, visual aides, calendar, written visual cues and dry erase board to improve ability to recall short term memory tasks patient completed with minimal moderate cueing with/in 3/5 opportunities. Problem Solving Reasoning Problem:SUPERVISOR OF INSTRUCTION Cognition Executive Function/Problem Solving/Reasoning Goal:Improve Problem Solving or Reasoning Completed Instructed patient on exercises and tasks to improve planning and self-monitoring skills for completion of tasks in home environment: sequencing, patient completed with moderate cueing with/in 70% trials. Executive Function Problem Solving Reasoning Problem:SUPERVISOR OF INSTRUCTION Cognition Executive Function/Problem Solving/Reasoning Goal:Improve Executive Function, Problem Solving And Reasoning LTG Completed SUPERVISOR OF INSTRUCTION instructed patient to complete exercises for improved problem solving for completion of tasks in home environment medication management and cell phone use with moderate cueing, patient able to complete with/in 70% accuracy. documented in this encounter [facility] home Plan of care note* Visit Details Visit Type -SN DISC DC W VIS IT Discipline -Longterm Problems Problem Description Start Date Status Goals Interve ntions Medication Education Disciplines: Skilled Services 09/22/2024 Active 1 goal linked to scheduled/docume nted intervention 1 goal intervention scheduled/documen any in this visit Sepsis Disciplines: Skilled Services 09/22/2024 Active 1 goal linked to scheduled/docume nted intervention 1 goal intervention scheduled/documen any in this visit Risk for Falls Disciplines: Skilled Services 09/22/2024 Active 1 goal linked to scheduled/docume nted intervention 1 goal intervention scheduled/documen any in this visit Nutrition/Hydration Disciplines: Skilled Services 09/22/2024 Active 1 goal linked to scheduled/docume nted intervention 1 goal intervention scheduled/documen any in this visit High Risk Medications Disciplines: Skilled Services 09/22/2024 Active 1 goal linked to scheduled/docume nted intervention 1 goal intervention scheduled/documen any in this visit SN Neurological Disciplines: SN 09/22/2024 Resolved on 10/06/2024 1 goal linked to scheduled/docume nted intervention 1 goal intervention scheduled/documen any in this visit SN Cardiovascular Condition Disciplines: SN 09/22/2024 Resolved on 10/06/2024 1 goal linked to scheduled/docume nted intervention 1 goal intervention scheduled/documen any in this visit SN Learning Assessment Disciplines: SN 09/22/2024 Resolved on 10/06/2024 1 goal linked to scheduled/docume nted intervention 1 goal intervention scheduled/documen any in this visit SN Genitourinary disease process Disciplines: SN 09/22/2024 Resolved on 10/06/2024 1 goal linked to scheduled/docume nted intervention 1 goal intervention scheduled/documen any in this visit Physician Specific Parameters Disciplines: Skilled Services 09/22/2024 Active 1 goal linked to scheduled/docume nted intervention 3 goal interventions scheduled/documen any in this visit Goals Goal Associated Problem Outcome Goal Met? Visit Notes Patient/caregiver will demonstrate ability to obtain, store, identify and administer ordered medications, keep accurate medication list in home, and adhere to medication schedule Description: Patient/caregiver will demonstrate ability to obtain, store, identify and administer ordered medications, keep accurate medication list in home, and adhere to medication schedule by 11/11/24. Medication Education No Patient/caregiver will be able to identify and report symptoms of sepsis Description: Patient/caregiver will be able to identify signs/symptoms of sepsis infection and will verbalize actions to take if suspected by 11/11/24. Sepsis No Manage Risk for falls Description: Patient/caregiver will verbalize knowledge of individualized fall prevention strategies by 11/11/24. Risk for Falls No Manage Nutrition/Hydration Description: Patient/caregiver will verbalize/demonstrate knowledge of prescribed diet and/or healthy nutrition to be achieved by 10/14/24. Nutrition/Hydration No Patient/caregiver will teach back high risk medication side effect and precaution education Description: STG Patient/caregiver will verbalize understanding of high risk medication side effects and precautions to be achieved by 10/14/24. LTG Patient/caregiver will continue to verbalize understanding of high risk medication side effects and precautions throughout certification period. High Risk Medications No Patient demonstrates baseline or optimal neurological functioning prior to discharge Description: Patient and/or caregiver will verbalize and/or demonstrate understanding of signs and symptoms of neurological disease process and management of termite technician effects and risk factors by 10/14/24,. SN Neurological Completed Yes Improved management of cardiovascular disease Description: Improve patient/caregiver management of cardiac disease as evidenced by patient/caregiver ability to teach back cardiac management strategies by 10/14/24. SN Cardiovascular Condition Completed Yes Demonstrate understanding of education Description: Patient and/or caregiver will verbalize understanding of educational instruction provided throughout certification period. SN Learning Assessment Completed Yes Patient/Caregiver will verbalize understanding and demonstrate improved management of genitourinary disease/condition. Description: Patient/Caregiver will state understanding of genitourinary disease/condition and be able to teach back management strategies by 10/14/24. SN Genitourinary disease process Completed Yes Patient to maintain parameters within physician-specified ranges throughout certification period Physician Specific Parameters No Interventions Intervention Associated Problem/Goal Status Variance Visit Notes Medication Education Description: Evaluate/instruct patient/caregiver on obtaining, storing, identifying and administering ordered medications as well as keeping accurate medication list in the home and adhereing to medication schedule Problem:Medication Education Goal:Patient/caregiver will demonstrate ability to obtain, store, identify and administer ordered medications, keep accurate medication list in home, and adhere to medication schedule Completed Patient instructed on adhering to medication schedule. Risk of Sepsis Description: Patient is at risk for sepsis. Monitor closely for s/s of sepsis. Problem:Sepsis Goal:Patient/caregiver will be able to identify and report symptoms of sepsis Completed Instruct on individual fall risk factors and strategies to prevent falls and injuries caused by falls. Problem:Risk for Falls Goal:Manage Risk for falls Completed SN: Patient instructed on Managing Impaired Functional Mobility: Use assistive device(s): rollator walker and Caregiver to provide assist with: ADL/IADLs Define patient s appetite/hydration status and implement strategies to improve compliance with prescribed diet and/or healthy nutrition. Problem:Nutrition/Hydr ation Goal:Manage Nutrition/Hydration Completed reinforced patient on implementing strategies to comply with healthy nutrition and adequate hydration Anticoagulant- educated on high risk medication Problem:High Risk Medications Goal:Patient/caregiver will teach back high risk medication side effect and precaution education Completed patient educated on anticoagulant medication eliquis Take your medication as instructed and at the same time each day. Do not stop medication or alter doses without speaking with your provider. Discuss medication effectiveness or side effect concerns with your provider and home care team. Discuss all medications you are taking, even [id number]-dhv-[id number] medicines, with your provider and pharmacist since many drugs can interact with anticoagulants. Tell anyone providing medical or dental care that you are taking an anticoagulant. DO NOT STOP your medication even for a minor procedure like dental work without first checking with the provider. If you forget to take a dose, DO NOT take a double dose. Take the missed dose as soon as possible on the same day. DO NOT take a double dose the next day to make up for the missed dose. Watch for signs of abnormal or excessive bleeding and bruising (refer to Bleeding Precautions education). Call your health care provider right away if you suspect something is wrong. Assess patient neurological and behavioral status and instruct patient and/or caregiver on neurological disease process, jail effects, and effective management strategies Description: Patient has diagnosis of CVA. Problem:SN Neurological Goal:Patient demonstrates baseline or optimal neurological functioning prior to discharge Completed patient instructed on disease process and when to seek medical attention and when to call 911. Instruct on cardiovascular disease process and management of condition Description: Patient has following cardiac diagnosis(es): AFIB and Hypertension. Problem:SN Cardiovascular Condition Goal:Improved management of cardiovascular disease Completed patient instructed on self monitoring & symptom reporting. Instruct and educate on knowledge deficits Problem:SN Learning Assessment Goal:Demonstrate understanding of education Completed patient verbalize and/or demonstrate understanding of nursing education completed today. Education methods include: verbal cues. Further education required to improve knowledge and compliance with cardiac disease management, fall prevention/home safety strategies, hematological care management, medication management and nutrition. Incontinence- Instruct Patient/Caregiver on measures to manage urinary incontinence Problem:SN Genitourinary disease process Goal:Patient/Caregiver will verbalize understanding and demonstrate improved management of genitourinary disease/condition. Completed patient instructed on measures to manage Urinary incontinence including: scheduled bathroom trips. Heart Rate Description: Notify NICO Deutsch if heart rate < 60 or > 120 at rest. Problem:Physician Specific Parameters Goal:Patient to maintain parameters within physician-specified ranges throughout certification period Completed Blood Pressure Description: Notify NICO Deutsch if resting SBP is <100 or >160. Problem:Physician Specific Parameters Goal:Patient to maintain parameters within physician-specified ranges throughout certification period Completed SPO2 Description: Notify NICO Lemon Suppan if pulse ox is <92% at rest. Problem:Physician Specific Parameters Goal:Patient to maintain parameters within physician-specified ranges throughout certification period Completed documented in this encounter [facility] home Plan of care note* Visit Details Visit Type -ALCAZAR ROUTINE Discipline -Occupational Therapy Problems Problem Description Start Date Status Goals Interve ntions Medication Education Disciplines: Skilled Services 09/22/2024 Active 1 goal linked to scheduled/document ed intervention 1 goal intervention scheduled/documente d in this visit Sepsis Disciplines: Skilled Services 09/22/2024 Active 1 goal linked to scheduled/document ed intervention 1 goal intervention scheduled/documente d in this visit Risk for Falls Disciplines: Skilled Services 09/22/2024 Active 1 goal linked to scheduled/document ed intervention 1 goal intervention scheduled/documente d in this visit Pain Disciplines: Skilled Services 09/22/2024 Active 1 goal linked to scheduled/document ed intervention 1 goal intervention scheduled/documente d in this visit Discharge Disciplines: Skilled Services 09/22/2024 Active 1 goal linked to scheduled/document ed intervention 1 goal intervention scheduled/documente d in this visit Physician Specific Parameters Disciplines: Skilled Services 09/22/2024 Active 1 goal linked to scheduled/document ed intervention 3 goal interventions scheduled/documente d in this visit OT Learning Assessment Disciplines: OT 10/01/2024 Active 1 goal linked to scheduled/document ed intervention 1 goal intervention scheduled/documente d in this visit OT Upper Body Strength and/or ROM Disciplines: OT 10/01/2024 Active 1 goal linked to scheduled/document ed intervention 1 goal intervention scheduled/documente d in this visit OT Functional Transfers Disciplines: OT 10/01/2024 Active 1 goal linked to scheduled/document ed intervention 1 goal intervention scheduled/documente d in this visit OT Neurologic Condition Disciplines: OT 10/01/2024 Active 1 goal linked to scheduled/document ed intervention 1 goal intervention scheduled/documente d in this visit Goals Goal Associated Problem Outcome Goal Met? Visit Notes Patient/caregiver will demonstrate ability to obtain, store, identify and administer ordered medications, keep accurate medication list in home, and adhere to medication schedule Description: Patient/caregiver will demonstrate ability to obtain, store, identify and administer ordered medications, keep accurate medication list in home, and adhere to medication schedule by 11/11/24. Medication Education No Patient/caregiver will be able to identify and report symptoms of sepsis Description: Patient/caregiver will be able to identify signs/symptoms of sepsis infection and will verbalize actions to take if suspected by 11/11/24. Sepsis No Manage Risk for falls Description: Patient/caregiver will verbalize knowledge of individualized fall prevention strategies by 11/11/24. Risk for Falls No Manage Pain Description: Patient/caregiver will verbalize knowledge and understanding of appropriate techniques to control pain, including pain medication. Patient will verbalize or demonstrate an acceptable level of pain as evidenced by a pain score of <4/10 and improvement in ability to perform activities of daily living to be achieved by 11/11/24. Pain No Manage discharge planning Description: Patient/caregiver will verbalize understanding of ongoing discharge plan provided related to disease management, arrangements for outpatient and/or community services, obtaining medications, supplies, and DME, as needed throughout certification period. Discharge No Patient to maintain parameters within physician-specified ranges throughout certification period Physician Specific Parameters No Demonstrate understanding of education Description: Patient and/or caregiver will understand educational instruction to be achieved by 10/30/24. OT Learning Assessment No Improved Strength and/or ROM Description: patient will verbalize/demonstrate independence with FINE and GROSS motor home exercise program, to improve functional performance, to be achieved by 10/30/24 Pt will demo improved project economist strength in R hand by 3 pounds. Pt will demo ability to sign name legibly by 10/30/24. OT Upper Body Strength and/or ROM No Improved Functional Transfers Description: patient will demonstrate safe transfers to/from toilet and shower/tub with independent assistance and no verbal cues with use of DME to be achieved by 10/30/24. OT Functional Transfers No Manage Neurologic Condition Description: Improve patient and/or caregiver understanding of neurologic condition and management, as evidenced by patient and/or caregiver ability to verbalize, demonstrate, teach back of instruction at a minimum of two strategies. To be achieved by 10/30/24. OT Neurologic Condition No Interventions Intervention Associated Problem/Goal Status Variance Visit Notes Medication Education Description: Evaluate/instruct patient/caregiver on obtaining, storing, identifying and administering ordered medications as well as keeping accurate medication list in the home and adhereing to medication schedule Problem:Medication Education Goal:Patient/caregive r will demonstrate ability to obtain, store, identify and administer ordered medications, keep accurate medication list in home, and adhere to medication schedule Completed Patient instructed on importance of keeping accurate medication list in home, need to take up-to-date medication list to all medical provider appointments and adhering to medication schedule. Risk of Sepsis Description: Patient is at risk for sepsis. Monitor closely for s/s of sepsis. Problem:Sepsis Goal:Patient/caregive r will be able to identify and report symptoms of sepsis Completed Instruct on individual fall risk factors and strategies to prevent falls and injuries caused by falls. Problem:Risk for Falls Goal:Manage Risk for falls Completed OT: Patient instructed on Eliminating Environmental Hazards: Keep pathways clear, Keep rooms and walkways well lit, Wear supportive shoes or non-skid socks and Keep frequently used items within reach Instruct on pain and instruct on strategies to control pain Problem:Pain Goal:Manage Pain Completed Pt. reporting no pain. Instruct on ongoing discharge plan Problem:Discharge Goal:Manage discharge planning Completed Ongoing Discharge plan: Discharge plan discussed with patient including frequency and duration for home OT and plan for transition to: caregiver assistance. Heart Rate Description: Notify NICO Deutsch if heart rate < 60 or > 120 at rest. Problem:Physician Specific Parameters Goal:Patient to maintain parameters within physician-specified ranges throughout certification period Completed Blood Pressure Description: Notify NICO Deutsch if resting SBP is <100 or >160. Problem:Physician Specific Parameters Goal:Patient to maintain parameters within physician-specified ranges throughout certification period Completed SPO2 Description: Notify NICO Deutsch if pulse ox is <92% at rest. Problem:Physician Specific Parameters Goal:Patient to maintain parameters within physician-specified ranges throughout certification period Completed Instruct and educate on knowledge deficits Problem:OT Learning Assessment Goal:Demonstrate understanding of education Completed Education methods include: verbal cues. Patient/Caregiver require further education to improve knowledge and compliance with fall prevention strategies, home safety, infection control precautions, functional transfers, home exercise program, endurance training and discharge planning. Therapeutic Exercises Problem:OT Upper Body Strength and/or ROM Goal:Improved Strength and/or ROM Completed Instructed patient/caregiver on therapeutic exercise including: Seated B hand theraputty exercises including: putty rolling, full project economist, fingertip pinch and finger/thumb opposition with Green resistive sponge and green thera putty and fine motor/coordination exercises. Provided verbal, visual and written cues for pacing and proper technique. Patient performed 1-2 set (s) of 10 reps this date. To increase B UE coordination/strength for increased performance with daily functional tasks, including writing her name. Instructed patient/caregiver for HEP to be performed 1-2 sets(s) of 10 reps, daily. HEP program developed, issued and reviewed. Transfer Training Problem:OT Functional Transfers Goal:Improved Functional Transfers Completed Instruct patient on safe transfers and proper techniques including body positioning/DME use/fall prevention to perform to and from toilet and shower stall with independence for a toilet transfer and Supervision for shower stall transfers assistance and verbal cues for safety/technique. education and training on the following adaptive equipment/durable medical equipment:grab bar(s), raised toilet seat and shower chair. 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 documented in this encounter [facility] home Plan of care note* Visit Details Visit Type -SUPERVISOR OF INSTRUCTION ROUTINE Discipline -Speech Language Pathology Problems Problem Description Start Date Status Goals Interve ntions Medication Education Disciplines: Skilled Services 09/22/2024 Active 1 goal linked to scheduled/documente d intervention 1 goal intervention scheduled/documente d in this visit Sepsis Disciplines: Skilled Services 09/22/2024 Active 1 goal linked to scheduled/documente d intervention 1 goal intervention scheduled/documente d in this visit Risk for Falls Disciplines: Skilled Services 09/22/2024 Active 1 goal linked to scheduled/documente d intervention 1 goal intervention scheduled/documente d in this visit Pain Disciplines: Skilled Services 09/22/2024 Active 1 goal linked to scheduled/documente d intervention 1 goal intervention scheduled/documente d in this visit Nutrition/Hydra tion Disciplines: Skilled Services 09/22/2024 Active 1 goal linked to scheduled/documente d intervention 1 goal intervention scheduled/documente d in this visit High Risk Medications Disciplines: Skilled Services 09/22/2024 Active 1 goal linked to scheduled/documente d intervention 1 goal intervention scheduled/documente d in this visit Discharge Disciplines: Skilled Services 09/22/2024 Active 1 goal linked to scheduled/documente d intervention 1 goal intervention scheduled/documente d in this visit Physician Specific Parameters Disciplines: Skilled Services 09/22/2024 Active 1 goal linked to scheduled/documente d intervention 3 goal interventions scheduled/documente d in this visit SUPERVISOR OF INSTRUCTION Learning Assessment Disciplines: SUPERVISOR OF INSTRUCTION 09/23/2024 Active 1 goal linked to scheduled/documente d intervention 1 goal intervention scheduled/documente d in this visit SUPERVISOR OF INSTRUCTION Cognition Memory Disciplines: SUPERVISOR OF INSTRUCTION 09/23/2024 Active 1 goal linked to scheduled/documente d intervention 1 goal intervention scheduled/documente d in this visit SUPERVISOR OF INSTRUCTION Cognition Executive Function/Proble m Solving/Reasoni ng Disciplines: SUPERVISOR OF INSTRUCTION 09/23/2024 Active 2 goals linked to scheduled/documente d interventions 2 goal interventions scheduled/documente d in this visit Goals Goal Associated Problem Outcome Goal Met? Visit Notes Patient/caregiver will demonstrate ability to obtain, store, identify and administer ordered medications, keep accurate medication list in home, and adhere to medication schedule Description: Patient/caregiver will demonstrate ability to obtain, store, identify and administer ordered medications, keep accurate medication list in home, and adhere to medication schedule by 11/11/24. Medication Education No Patient/caregiver will be able to identify and report symptoms of sepsis Description: Patient/caregiver will be able to identify signs/symptoms of sepsis infection and will verbalize actions to take if suspected by 11/11/24. Sepsis No Manage Risk for falls Description: Patient/caregiver will verbalize knowledge of individualized fall prevention strategies by 11/11/24. Risk for Falls No Manage Pain Description: Patient/caregiver will verbalize knowledge and understanding of appropriate techniques to control pain, including pain medication. Patient will verbalize or demonstrate an acceptable level of pain as evidenced by a pain score of <4/10 and improvement in ability to perform activities of daily living to be achieved by 11/11/24. Pain No Manage Nutrition/Hydration Description: Patient/caregiver will verbalize/demonstrate knowledge of prescribed diet and/or healthy nutrition to be achieved by 10/14/24. Nutrition/Hydration No Patient/caregiver will teach back high risk medication side effect and precaution education Description: STG Patient/caregiver will verbalize understanding of high risk medication side effects and precautions to be achieved by 10/14/24. LTG Patient/caregiver will continue to verbalize understanding of high risk medication side effects and precautions throughout certification period. High Risk Medications No Manage discharge planning Description: Patient/caregiver will verbalize understanding of ongoing discharge plan provided related to disease management, arrangements for outpatient and/or community services, obtaining medications, supplies, and DME, as needed throughout certification period. Discharge No Patient to maintain parameters within physician-specified ranges throughout certification period Physician Specific Parameters No Patient/Caregiver Demonstrates understanding of education Description: patient, caregiver will understand educational instruction, to be achieved by 10/16/24. SUPERVISOR OF INSTRUCTION Learning Assessment No Improve Memory Skills STG Description: Patient/caregiver will verbalize/demonstrate awareness of memory strategies for short term memory information with minimal cues verbally and visually with/in 65% accuracy. To be achieved by 10/09/24. SUPERVISOR OF INSTRUCTION Cognition Memory No Improve Problem Solving or Reasoning Description: Patient will complete problem solving or reasoning tasks related to basic mathematic skills generate solutions, sequencing and situation problem solving with minimal cueing with/in 70% accuracy. To be achieved by 10/09/24. SUPERVISOR OF INSTRUCTION Cognition Executive Function/Problem Solving/Reasoning No Improve Executive Function, Problem Solving And Reasoning LTG Description: Patient will demonstrate ability to use strategies and techniques to improve planning and self monitoring skills, problem solving and reasoning skills for completion of tasks in home environment: home maintenance and medication management with minimal cueing with/in 70% accuracy, to improve independence. To be achieved by 10/16/24. SUPERVISOR OF INSTRUCTION Cognition Executive Function/Problem Solving/Reasoning No Interventions Intervention Associated Problem/Goal Status Variance Visit Notes Medication Education Description: Evaluate/instruct patient/caregiver on obtaining, storing, identifying and administering ordered medications as well as keeping accurate medication list in the home and adhereing to medication schedule Problem:Medication Education Goal:Patient/caregive r will demonstrate ability to obtain, store, identify and administer ordered medications, keep accurate medication list in home, and adhere to medication schedule Completed Patient and Caregiver instructed on adhering to medication schedule. Risk of Sepsis Description: Patient is at risk for sepsis. Monitor closely for s/s of sepsis. Problem:Sepsis Goal:Patient/caregive r will be able to identify and report symptoms of sepsis Completed Instruct on individual fall risk factors and strategies to prevent falls and injuries caused by falls. Problem:Risk for Falls Goal:Manage Risk for falls Completed SUPERVISOR OF INSTRUCTION: Patient and Caregiver instructed on Managing Impaired Functional Mobility: Use assistive device(s): rollator walker. Instruct on pain and instruct on strategies to control pain Problem:Pain Goal:Manage Pain Completed patient and caregiver instructed on techniques to control pain including Pharmacological measures and Non-Pharmacological measures; rest. Define patient s appetite/hydration status and implement strategies to improve compliance with prescribed diet and/or healthy nutrition. Problem:Nutrition/Hyd ration Goal:Manage Nutrition/Hydration Completed reinforced patient and caregiver on implementing strategies to comply with healthy nutrition and adequate hydration Anticoagulant- educated on high risk medication Problem:High Risk Medications Goal:Patient/caregive r will teach back high risk medication side effect and precaution education Completed patient and caregiver educated on anticoagulant medication eliquis Take your medication as instructed and at the same time each day. Do not stop medication or alter doses without speaking with your provider. Discuss medication effectiveness or side effect concerns with your provider and home care team. Discuss all medications you are taking, even [id number] medicines, with your provider and pharmacist since many drugs can interact with anticoagulants. Tell anyone providing medical or dental care that you are taking an anticoagulant. DO NOT STOP your medication even for a minor procedure like dental work without first checking with the provider. If you forget to take a dose, DO NOT take a double dose. Take the missed dose as soon as possible on the same day. DO NOT take a double dose the next day to make up for the missed dose. Watch for signs of abnormal or excessive bleeding and bruising (refer to Bleeding Precautions education). Call your health care provider right away if you suspect something is wrong. Instruct on ongoing discharge plan Problem:Discharge Goal:Manage discharge planning Completed Ongoing Discharge plan: Discharge plan discussed with patient including frequency and duration for home ST and plan for transition to: outpatient therapy. Heart Rate Description: Notify NICO Deutsch if heart rate < 60 or > 120 at rest. Problem:Physician Specific Parameters Goal:Patient to maintain parameters within physician-specified ranges throughout certification period Completed Blood Pressure Description: Notify NICO Deutsch if resting SBP is <100 or >160. Problem:Physician Specific Parameters Goal:Patient to maintain parameters within physician-specified ranges throughout certification period Completed SPO2 Description: Notify NICO Deutsch if pulse ox is <92% at rest. Problem:Physician Specific Parameters Goal:Patient to maintain parameters within physician-specified ranges throughout certification period Completed Assessment of patient/caregiver knowledge deficit and educational instruction Problem:SUPERVISOR OF INSTRUCTION Learning Assessment Goal:Patient/Caregive r Demonstrates understanding of education Completed Education methods include: verbal cues, written instructions, visual cues and teach back. Further education required to improve knowledge and compliance with functional cognitive and home exercise program. Memory Strategy Education Memory Exercises and Techniques Problem:SUPERVISOR OF INSTRUCTION Cognition Memory Goal:Improve Memory Skills STG Completed Instructed patient/caregiver on use of memory strategies writing and repetition to improve ability to recall immediate memory tasks and short term memory tasks patient completed with minimal cueing with/in 90% opportunities. Problem Solving Reasoning Problem:SUPERVISOR OF INSTRUCTION Cognition Executive Function/Problem Solving/Reasoning Goal:Improve Problem Solving or Reasoning Completed Instructed patient on exercises and tasks to improve planning and self-monitoring skills for completion of tasks in home environment: Reasoning, situation problem solving and reasoning, patient completed with moderate cueing with/in 80% trials. Executive Function Problem Solving Reasoning Problem:SUPERVISOR OF INSTRUCTION Cognition Executive Function/Problem Solving/Reasoning Goal:Improve Executive Function, Problem Solving And Reasoning LTG Completed SUPERVISOR OF INSTRUCTION instructed patient to complete exercises for improved problem solving and reasoning skills for completion of tasks in home environment cell phone use with moderate cueing, patient able to complete with/in 80% trials. documented in this encounter [facility] home Plan of care note* Visit Details Visit Type -ALCAZAR ROUTINE Discipline -Occupational Therapy Problems Problem Description Start Date Status Goals Interve ntions Medication Education Disciplines: Skilled Services 09/22/2024 Active 1 goal linked to scheduled/document ed intervention 1 goal intervention scheduled/documente d in this visit Sepsis Disciplines: Skilled Services 09/22/2024 Active 1 goal linked to scheduled/document ed intervention 1 goal intervention scheduled/documente d in this visit Risk for Falls Disciplines: Skilled Services 09/22/2024 Active 1 goal linked to scheduled/document ed intervention 1 goal intervention scheduled/documente d in this visit Pain Disciplines: Skilled Services 09/22/2024 Active 1 goal linked to scheduled/document ed intervention 1 goal intervention scheduled/documente d in this visit Discharge Disciplines: Skilled Services 09/22/2024 Active 1 goal linked to scheduled/document ed intervention 1 goal intervention scheduled/documente d in this visit Physician Specific Parameters Disciplines: Skilled Services 09/22/2024 Active 1 goal linked to scheduled/document ed intervention 3 goal interventions scheduled/documente d in this visit OT Learning Assessment Disciplines: OT 10/01/2024 Active 1 goal linked to scheduled/document ed intervention 1 goal intervention scheduled/documente d in this visit OT ADLs/IADLs Disciplines: OT 10/01/2024 Active 1 goal linked to scheduled/document ed intervention 1 goal intervention scheduled/documente d in this visit OT Balance Disciplines: OT 10/01/2024 Active 1 goal linked to scheduled/document ed intervention 1 goal intervention scheduled/documente d in this visit OT Neurologic Condition Disciplines: OT 10/01/2024 Active 1 goal linked to scheduled/document ed intervention 1 goal intervention scheduled/documente d in this visit Goals Goal Associated Problem Outcome Goal Met? Visit Notes Patient/caregiver will demonstrate ability to obtain, store, identify and administer ordered medications, keep accurate medication list in home, and adhere to medication schedule Description: Patient/caregiver will demonstrate ability to obtain, store, identify and administer ordered medications, keep accurate medication list in home, and adhere to medication schedule by 11/11/24. Medication Education No Patient/caregiver will be able to identify and report symptoms of sepsis Description: Patient/caregiver will be able to identify signs/symptoms of sepsis infection and will verbalize actions to take if suspected by 11/11/24. Sepsis No Manage Risk for falls Description: Patient/caregiver will verbalize knowledge of individualized fall prevention strategies by 11/11/24. Risk for Falls No Manage Pain Description: Patient/caregiver will verbalize knowledge and understanding of appropriate techniques to control pain, including pain medication. Patient will verbalize or demonstrate an acceptable level of pain as evidenced by a pain score of <4/10 and improvement in ability to perform activities of daily living to be achieved by 11/11/24. Pain No Manage discharge planning Description: Patient/caregiver will verbalize understanding of ongoing discharge plan provided related to disease management, arrangements for outpatient and/or community services, obtaining medications, supplies, and DME, as needed throughout certification period. Discharge No Patient to maintain parameters within physician-specified ranges throughout certification period Physician Specific Parameters No Demonstrate understanding of education Description: Patient and/or caregiver will understand educational instruction to be achieved by 10/30/24. OT Learning Assessment No Improved ADLs/IADLs performance Description: patient will verbalize understanding of instructions and demonstrate improved performance of feeding, grooming, upper body dressing, lower body dressing, bathing, toileting, meal prep and laundry to independence as evidenced by improved [place] ADL Index score to at least 90/100 to be achieved by 10/30/24. OT ADLs/IADLs No Improved Balance Description: Patient will demonstrate improved standing balance to meet functional goals as evidenced by ability to retrieve items from various height surfaces with Indep to be achieved by 10/30/24. OT Balance No Manage Neurologic Condition Description: Improve patient and/or caregiver understanding of neurologic condition and management, as evidenced by patient and/or caregiver ability to verbalize, demonstrate, teach back of instruction at a minimum of two strategies. To be achieved by 10/30/24. OT Neurologic Condition No Interventions Intervention Associated Problem/Goal Status Variance Visit Notes Medication Education Description: Evaluate/instruct patient/caregiver on obtaining, storing, identifying and administering ordered medications as well as keeping accurate medication list in the home and adhereing to medication schedule Problem:Medication Education Goal:Patient/caregive r will demonstrate ability to obtain, store, identify and administer ordered medications, keep accurate medication list in home, and adhere to medication schedule Completed Patient instructed on importance of keeping accurate medication list in home, need to take up-to-date medication list to all medical provider appointments and adhering to medication schedule. Risk of Sepsis Description: Patient is at risk for sepsis. Monitor closely for s/s of sepsis. Problem:Sepsis Goal:Patient/caregive r will be able to identify and report symptoms of sepsis Completed Instruct on individual fall risk factors and strategies to prevent falls and injuries caused by falls. Problem:Risk for Falls Goal:Manage Risk for falls Completed OT: Patient and Caregiver instructed on Eliminating Environmental Hazards: Keep pathways clear, Keep rooms and walkways well lit, Wear supportive shoes or non-skid socks and Keep frequently used items within reach Instruct on pain and instruct on strategies to control pain Problem:Pain Goal:Manage Pain Completed Pt. reporting no pain. Instruct on ongoing discharge plan Problem:Discharge Goal:Manage discharge planning Completed Ongoing Discharge plan: Discharge plan discussed with patient and caregiver including frequency and duration for home OT and plan for transition to: caregiver assistance. Heart Rate Description: Notify NICO J. Suppan if heart rate < 60 or > 120 at rest. Problem:Physician Specific Parameters Goal:Patient to maintain parameters within physician-specified ranges throughout certification period Completed Blood Pressure Description: Notify NICO VieyraDotty Suppan if resting SBP is <100 or >160. Problem:Physician Specific Parameters Goal:Patient to maintain parameters within physician-specified ranges throughout certification period Completed SPO2 Description: Notify AV[employer]ATION ELECTRONIC WARFARE OPERATOR J Suppan if pulse ox is <92% at rest. Problem:Physician Specific Parameters Goal:Patient to maintain parameters within physician-specified ranges throughout certification period Completed Instruct and educate on knowledge deficits Problem:OT Learning Assessment Goal:Demonstrate understanding of education Completed Education methods include: verbal cues. Patient/Caregiver require further education to improve knowledge and compliance with fall prevention strategies, neurological condition management, balance training, home safety, infection control precautions, functional adl/iadl activity, endurance training and discharge planning. ADL/IADLs Training Problem:OT ADLs/IADLs Goal:Improved ADLs/IADLs performance Completed Instruct patient on compensatory strategies, energy conservation and donning R UE extremity first and no adaptive equipment use to facilite improved performance of feeding, grooming, upper body dressing and lower body dressing with supervision or setup assistance and few verbal cues for problem solving. Pt. is able to stand at sink for grooming tasks with Supervision, Pt. is able to janeth/doff pullover shirt, pants, socks & slip on shoes seated eob with Supervision. Pt. is able to use a regular spoon to scoop blueberries to bring to mouth, Pt. does require someone to cut up[ her food at this time. Balance Training Problem:OT Balance Goal:Improved Balance Completed Pt. estrella fair stand balance during itme retrieval tasks without LOB/AD, Supervision for safety during reaching/bending various heights in closet and drawers. Instruct on self-management of post surgical and/or non-surgical neurologic intervention Problem:OT Neurologic Condition Goal:Manage Neurologic Condition Completed Instruct patient and caregiver on neurological condition of CVA including monitoring and reporting symptoms of elevated blood pressure, headaches, swallowing difficulty, speech changes and vision changes and instruct on medication adherance strategies and energy conservation. documented in this encounter [facility] home Plan of care note* Visit Details Visit Type -ALCAZAR ROUTINE Discipline -Occupational Therapy Problems Problem Description Start Date Status Goals Interve ntions Medication Education Disciplines: Skilled Services 09/22/2024 Active 1 goal linked to scheduled/document ed intervention 1 goal intervention scheduled/documente d in this visit Sepsis Disciplines: Skilled Services 09/22/2024 Active 1 goal linked to scheduled/document ed intervention 1 goal intervention scheduled/documente d in this visit Risk for Falls Disciplines: Skilled Services 09/22/2024 Active 1 goal linked to scheduled/document ed intervention 1 goal intervention scheduled/documente d in this visit Pain Disciplines: Skilled Services 09/22/2024 Active 1 goal linked to scheduled/document ed intervention 1 goal intervention scheduled/documente d in this visit Discharge Disciplines: Skilled Services 09/22/2024 Active 1 goal linked to scheduled/document ed intervention 1 goal intervention scheduled/documente d in this visit Physician Specific Parameters Disciplines: Skilled Services 09/22/2024 Active 1 goal linked to scheduled/document ed intervention 3 goal interventions scheduled/documente d in this visit OT Learning Assessment Disciplines: OT 10/01/2024 Active 1 goal linked to scheduled/document ed intervention 1 goal intervention scheduled/documente d in this visit OT Upper Body Strength and/or ROM Disciplines: OT 10/01/2024 Active 1 goal linked to scheduled/document ed intervention 1 goal intervention scheduled/documente d in this visit OT Neurologic Condition Disciplines: OT 10/01/2024 Active 1 goal linked to scheduled/document ed intervention 1 goal intervention scheduled/documente d in this visit Goals Goal Associated Problem Outcome Goal Met? Visit Notes Patient/caregiver will demonstrate ability to obtain, store, identify and administer ordered medications, keep accurate medication list in home, and adhere to medication schedule Description: Patient/caregiver will demonstrate ability to obtain, store, identify and administer ordered medications, keep accurate medication list in home, and adhere to medication schedule by 11/11/24. Medication Education No Patient/caregiver will be able to identify and report symptoms of sepsis Description: Patient/caregiver will be able to identify signs/symptoms of sepsis infection and will verbalize actions to take if suspected by 11/11/24. Sepsis No Manage Risk for falls Description: Patient/caregiver will verbalize knowledge of individualized fall prevention strategies by 11/11/24. Risk for Falls No Manage Pain Description: Patient/caregiver will verbalize knowledge and understanding of appropriate techniques to control pain, including pain medication. Patient will verbalize or demonstrate an acceptable level of pain as evidenced by a pain score of <4/10 and improvement in ability to perform activities of daily living to be achieved by 11/11/24. Pain No Manage discharge planning Description: Patient/caregiver will verbalize understanding of ongoing discharge plan provided related to disease management, arrangements for outpatient and/or community services, obtaining medications, supplies, and DME, as needed throughout certification period. Discharge No Patient to maintain parameters within physician-specified ranges throughout certification period Physician Specific Parameters No Demonstrate understanding of education Description: Patient and/or caregiver will understand educational instruction to be achieved by 10/30/24. OT Learning Assessment No Improved Strength and/or ROM Description: patient will verbalize/demonstrate independence with FINE and GROSS motor home exercise program, to improve functional performance, to be achieved by 10/30/24 Pt will demo improved project economist strength in R hand by 3 pounds. Pt will demo ability to sign name legibly by 10/30/24. OT Upper Body Strength and/or ROM No Manage Neurologic Condition Description: Improve patient and/or caregiver understanding of neurologic condition and management, as evidenced by patient and/or caregiver ability to verbalize, demonstrate, teach back of instruction at a minimum of two strategies. To be achieved by 10/30/24. OT Neurologic Condition No Interventions Intervention Associated Problem/Goal Status Variance Visit Notes Medication Education Description: Evaluate/instruct patient/caregiver on obtaining, storing, identifying and administering ordered medications as well as keeping accurate medication list in the home and adhereing to medication schedule Problem:Medication Education Goal:Patient/caregive r will demonstrate ability to obtain, store, identify and administer ordered medications, keep accurate medication list in home, and adhere to medication schedule Completed Patient instructed on importance of keeping accurate medication list in home, need to take up-to-date medication list to all medical provider appointments and adhering to medication schedule. Risk of Sepsis Description: Patient is at risk for sepsis. Monitor closely for s/s of sepsis. Problem:Sepsis Goal:Patient/caregive r will be able to identify and report symptoms of sepsis Completed Instruct on individual fall risk factors and strategies to prevent falls and injuries caused by falls. Problem:Risk for Falls Goal:Manage Risk for falls Completed OT: Patient instructed on Eliminating Environmental Hazards: Keep pathways clear, Keep rooms and walkways well lit, Wear supportive shoes or non-skid socks and Keep frequently used items within reach Instruct on pain and instruct on strategies to control pain Problem:Pain Goal:Manage Pain Completed Pt. reporting no pain. Instruct on ongoing discharge plan Problem:Discharge Goal:Manage discharge planning Completed Ongoing Discharge plan: Discharge plan discussed with patient including frequency and duration for home OT and plan for transition to: caregiver assistance. Heart Rate Description: Notify AVIATION ELECTRONIC WARFARE OPERATOR Codey Suppsamantha if heart rate < 60 or > 120 at rest. Problem:Physician Specific Parameters Goal:Patient to maintain parameters within physician-specified ranges throughout certification period Completed Blood Pressure Description: Notify AVIATION ELECTRONIC WARFARE OPERATOR Dotty Suppan if resting SBP is <100 or >160. Problem:Physician Specific Parameters Goal:Patient to maintain parameters within physician-specified ranges throughout certification period Completed SPO2 Description: Notify NICO J Suppan if pulse ox is <92% at rest. Problem:Physician Specific Parameters Goal:Patient to maintain parameters within physician-specified ranges throughout certification period Completed Instruct and educate on knowledge deficits Problem:OT Learning Assessment Goal:Demonstrate understanding of education Completed Education methods include: verbal cues. Patient/Caregiver require further education to improve knowledge and compliance with fall prevention strategies, neurological condition management, home safety, infection control precautions, home exercise program, endurance training and discharge planning. Therapeutic Exercises Problem:OT Upper Body Strength and/or ROM Goal:Improved Strength and/or ROM Completed Instructed patient/caregiver on therapeutic exercise including: upper body exercises: Seated B UE AROM with shoulder flexion/extension, shoulder abduction/adduction, bicep flexion/extension, supination/pronation, tricep flexion/extension, shoulder internal/external rotation, wrist flexion/extension. digit flexion/extension. Provided verbal, visual and written cues for pacing and proper technique. Patient performed 1 set (s) of 10 reps this date. Educated Pt. and caregiver to add light resistance and to increase reps/sets as tolerated to increased performance with daily functional tasks. Instructed patient/caregiver for HEP to be performed 1-2 sets(s) of 10 reps, daily. HEP program developed, issued and reviewed. Instruct on self-management of post surgical and/or non-surgical neurologic intervention Problem:OT Neurologic Condition Goal:Manage Neurologic Condition Completed Instruct patient on neurological condition of CVA including monitoring and reporting symptoms of elevated blood pressure, headaches, swallowing difficulty and speech changes and instruct on medication adherance strategies, energy conservation and when to call provider. [facility] Visit Details Visit Type -PT DISC DC W VIS IT Discipline -Physical Therapy Problems Problem Description Start Date Status Goals Interve ntions Sepsis Disciplines: Skilled Services 09/22/2024 Active 1 goal linked to scheduled/document ed intervention 1 goal intervention scheduled/document ed in this visit Risk for Falls Disciplines: Skilled Services 09/22/2024 Active 1 goal linked to scheduled/document ed intervention 1 goal intervention scheduled/document ed in this visit Physician Specific Parameters Disciplines: Skilled Services 09/22/2024 Active 1 goal linked to scheduled/document ed intervention 3 goal interventions scheduled/document ed in this visit PT Impaired muscle performance and/or ROM Disciplines: PT 09/25/2024 Resolved on 10/11/2024 1 goal linked to scheduled/document ed intervention 1 goal intervention scheduled/document ed in this visit PT Impaired mobility Disciplines: PT 09/25/2024 Resolved on 10/11/2024 1 goal linked to scheduled/document ed intervention 1 goal intervention scheduled/document ed in this visit PT Impaired gait Disciplines: PT 09/25/2024 Resolved on 10/11/2024 2 goals linked to scheduled/document ed interventions 2 goal interventions scheduled/document ed in this visit PT Impaired balance Disciplines: PT 09/25/2024 Resolved on 10/11/2024 1 goal linked to scheduled/document ed intervention 1 goal intervention scheduled/document ed in this visit PT Neurologic Condition Disciplines: PT 09/25/2024 Resolved on 10/11/2024 1 goal linked to scheduled/document ed intervention 1 goal intervention scheduled/document ed in this visit PT Learning Assessment Disciplines: PT 09/25/2024 Resolved on 10/11/2024 1 goal linked to scheduled/document ed intervention 1 goal intervention scheduled/document ed in this visit Goals Goal Associated Problem Outcome Goal Met? Visit Notes Patient/caregiver will be able to identify and report symptoms of sepsis Description: Patient/caregiver will be able to identify signs/symptoms of sepsis infection and will verbalize actions to take if suspected by 11/11/24. Sepsis No Manage Risk for falls Description: Patient/caregiver will verbalize knowledge of individualized fall prevention strategies by 11/11/24. Risk for Falls No Patient to maintain parameters within physician-specified ranges throughout certification period Physician Specific Parameters No Improved Muscle Performance and/or ROM Description: LTG: Patient will demonstrate improved muscle performance to meet functional goals as evidenced by ability to tolerate 15 minutes of therapeutic activity, to be achieved by 10/16/24. . STG: Patient and/or caregiver will verbalize/demonstrate independence with home exercise program, to improve functional mobility, to be achieved by 10/02/24. . PT Impaired muscle performance and/or ROM Completed Yes Improved Transfers Description: LTG: Patient will demonstrate safe transfers to/from chair and car independently with AD, to be achieved by 10/16/24. . PT Impaired mobility Completed Yes Improved Stair Climbing Description: LTG: Patient will demonstrate improved stair negotiation as evidenced by ascend/descend 1 steps with cane and grab bar independently, to safely access all areas of the home, to be achieved by 10/16/24. . PT Impaired gait Completed Yes Improved Gait Description: LTG: Patient will demonstrate improved gait ability as evidenced by ambulation 200 feet with rollator walker independently with AD, in order to resume walking around the [address] with her friends , to be achieved by 10/16/24. . LTG: Patient will demonstrate improved gait ability as evidenced by ambulation 100 feet with single point cane independently with AD in the home , to return to safe household ambulation, in order to return to plf , to be achieved by 10/16/24. . PT Impaired gait Completed Yes Improved Balance Description: LTG: Patient will demonstrate improved standing balance to meet functional goals as evidenced by TUG score of <25 to be achieved by 10/16/24. PT Impaired balance Completed Yes Manage Neurologic Condition Description: Improve patient and/or caregiver understanding of post surgical and/or non-surgical neurologic intervention management as evidenced by patient and/or caregiver able to verbalize, demonstrate, and teach back instruction, to be achieved by 10/16/24. . PT Neurologic Condition Completed Yes Demonstrate understanding of education Description: Patient and/or caregiver will understand educational instruction to be achieved by 10/16/24. . PT Learning Assessment Completed Yes Interventions Intervention Associated Problem/Goal Status Variance Visit Notes Risk of Sepsis Description: Patient is at risk for sepsis. Monitor closely for s/s of sepsis. Problem:Sepsis Goal:Patient/caregiver will be able to identify and report symptoms of sepsis Completed Instruct on individual fall risk factors and strategies to prevent falls and injuries caused by falls. Problem:Risk for Falls Goal:Manage Risk for falls Completed PT: Patient instructed on Eliminating Environmental Hazards: Keep pathways clear, Remove unsafe rugs, Move furniture from pathways, Keep rooms and walkways well lit, Install hand rails/grab bars and Wear supportive shoes or non-skid socks Managing Impaired Functional Mobility: Use assistive device(s): rollator walker Managing Pain Heart Rate Description: Notify NICO Deutsch if heart rate < 60 or > 120 at rest. Problem:Physician Specific Parameters Goal:Patient to maintain parameters within physician-specified ranges throughout certification period Completed Blood Pressure Description: Notify NICO Deutsch if resting SBP is <100 or >160. Problem:Physician Specific Parameters Goal:Patient to maintain parameters within physician-specified ranges throughout certification period Completed SPO2 Description: Notify NICO Deutsch if pulse ox is <92% at rest. Problem:Physician Specific Parameters Goal:Patient to maintain parameters within physician-specified ranges throughout certification period Completed Physical Therapy Therapeutic Exercises Problem:PT Impaired muscle performance and/or ROM Goal:Improved Muscle Performance and/or ROM Completed patient and caregiver instructed on strengthening exercises including standing heel toe rasies, hip abd and flexion, hams curls and 1/4 squats x's 15each step ups x's 5 each with verbal, visual and written cues for form and hold times. patient and caregiver instructed to perform home exercise program daily which included above ex. completes with assist of private duty RISK ENGINEER Physical Therapy Transfer Training Problem:PT Impaired mobility Goal:Improved Transfers Completed KEIKO chair and bed transfers with safe/proper technique Physical Therapy Stair Training Problem:PT Impaired gait Goal:Improved Stair Climbing Completed up and down 1 step with supervision using walker for support Physical Therapy Gait Training Problem:PT Impaired gait Goal:Improved Gait Completed Indep amd with RW , with a shorter sride , flat foot gait x200 Physical Therapy Balance Training Problem:PT Impaired balance Goal:Improved Balance Completed pt demonstrates improved dyanamic standing balacne as evidenced by a tug of 24 Instruct on self-management of post surgical and/or non-surgical neurologic intervention Problem:PT Neurologic Condition Goal:Manage Neurologic Condition Completed patient instructed on instructed on when to call [id number] (balance, eyes, face, arms, speech, time). Instruct and educate on knowledge deficits Problem:PT Learning Assessment Goal:Demonstrate understanding of education Completed patient verbalize and/or demonstrate understanding of physical therapy education including fall prevention strategies, home safety, functional activity and home exercise program. Education methods include: verbal cues and written instructions. documented in this encounter [facility] home Plan of care note* Visit Details Visit Type -ALCAZAR ROUTINE Discipline -Occupational Therapy Problems Problem Description Start Date Status Goals Interve ntions Medication Education Disciplines: Skilled Services 09/22/2024 Active 1 goal linked to scheduled/document ed intervention 1 goal intervention scheduled/documente d in this visit Sepsis Disciplines: Skilled Services 09/22/2024 Active 1 goal linked to scheduled/document ed intervention 1 goal intervention scheduled/documente d in this visit Risk for Falls Disciplines: Skilled Services 09/22/2024 Active 1 goal linked to scheduled/document ed intervention 1 goal intervention scheduled/documente d in this visit Pain Disciplines: Skilled Services 09/22/2024 Active 1 goal linked to scheduled/document ed intervention 1 goal intervention scheduled/documente d in this visit Discharge Disciplines: Skilled Services 09/22/2024 Active 1 goal linked to scheduled/document ed intervention 1 goal intervention scheduled/documente d in this visit Physician Specific Parameters Disciplines: Skilled Services 09/22/2024 Active 1 goal linked to scheduled/document ed intervention 3 goal interventions scheduled/documente d in this visit OT Learning Assessment Disciplines: OT 10/01/2024 Active 1 goal linked to scheduled/document ed intervention 1 goal intervention scheduled/documente d in this visit OT ADLs/IADLs Disciplines: OT 10/01/2024 Active 1 goal linked to scheduled/document ed intervention 1 goal intervention scheduled/documente d in this visit OT Functional Transfers Disciplines: OT 10/01/2024 Active 1 goal linked to scheduled/document ed intervention 1 goal intervention scheduled/documente d in this visit OT Balance Disciplines: OT 10/01/2024 Active 1 goal linked to scheduled/document ed intervention 1 goal intervention scheduled/documente d in this visit OT Neurologic Condition Disciplines: OT 10/01/2024 Active 1 goal linked to scheduled/document ed intervention 1 goal intervention scheduled/documente d in this visit Goals Goal Associated Problem Outcome Goal Met? Visit Notes Patient/caregiver will demonstrate ability to obtain, store, identify and administer ordered medications, keep accurate medication list in home, and adhere to medication schedule Description: Patient/caregiver will demonstrate ability to obtain, store, identify and administer ordered medications, keep accurate medication list in home, and adhere to medication schedule by 11/11/24. Medication Education No Patient/caregiver will be able to identify and report symptoms of sepsis Description: Patient/caregiver will be able to identify signs/symptoms of sepsis infection and will verbalize actions to take if suspected by 11/11/24. Sepsis No Manage Risk for falls Description: Patient/caregiver will verbalize knowledge of individualized fall prevention strategies by 11/11/24. Risk for Falls No Manage Pain Description: Patient/caregiver will verbalize knowledge and understanding of appropriate techniques to control pain, including pain medication. Patient will verbalize or demonstrate an acceptable level of pain as evidenced by a pain score of <4/10 and improvement in ability to perform activities of daily living to be achieved by 11/11/24. Pain No Manage discharge planning Description: Patient/caregiver will verbalize understanding of ongoing discharge plan provided related to disease management, arrangements for outpatient and/or community services, obtaining medications, supplies, and DME, as needed throughout certification period. Discharge No Patient to maintain parameters within physician-specified ranges throughout certification period Physician Specific Parameters No Demonstrate understanding of education Description: Patient and/or caregiver will understand educational instruction to be achieved by 10/30/24. OT Learning Assessment No Improved ADLs/IADLs performance Description: patient will verbalize understanding of instructions and demonstrate improved performance of feeding, grooming, upper body dressing, lower body dressing, bathing, toileting, meal prep and laundry to independence as evidenced by improved Adama ADL Index score to at least 90/100 to be achieved by 10/30/24. OT ADLs/IADLs No Improved Functional Transfers Description: patient will demonstrate safe transfers to/from toilet and shower/tub with independent assistance and no verbal cues with use of DME to be achieved by 10/30/24. OT Functional Transfers No Improved Balance Description: Patient will demonstrate improved standing balance to meet functional goals as evidenced by ability to retrieve items from various height surfaces with Indep to be achieved by 10/30/24. OT Balance No Manage Neurologic Condition Description: Improve patient and/or caregiver understanding of neurologic condition and management, as evidenced by patient and/or caregiver ability to verbalize, demonstrate, teach back of instruction at a minimum of two strategies. To be achieved by 10/30/24. OT Neurologic Condition No Interventions Intervention Associated Problem/Goal Status Variance Visit Notes Medication Education Description: Evaluate/instruct patient/caregiver on obtaining, storing, identifying and administering ordered medications as well as keeping accurate medication list in the home and adhereing to medication schedule Problem:Medication Education Goal:Patient/caregive r will demonstrate ability to obtain, store, identify and administer ordered medications, keep accurate medication list in home, and adhere to medication schedule Completed Patient instructed on importance of keeping accurate medication list in home, need to take up-to-date medication list to all medical provider appointments and adhering to medication schedule. Risk of Sepsis Description: Patient is at risk for sepsis. Monitor closely for s/s of sepsis. Problem:Sepsis Goal:Patient/caregive r will be able to identify and report symptoms of sepsis Completed Instruct on individual fall risk factors and strategies to prevent falls and injuries caused by falls. Problem:Risk for Falls Goal:Manage Risk for falls Completed OT: Patient instructed on Eliminating Environmental Hazards: Keep pathways clear, Keep rooms and walkways well lit, Wear supportive shoes or non-skid socks and Keep frequently used items within reach Instruct on pain and instruct on strategies to control pain Problem:Pain Goal:Manage Pain Completed Pt. reporting no pain. Instruct on ongoing discharge plan Problem:Discharge Goal:Manage discharge planning Completed Ongoing Discharge plan: Discharge plan discussed with patient including frequency and duration for home OT and plan for transition to: caregiver assistance. Heart Rate Description: Notify NICO Alegre Suppsamantha if heart rate < 60 or > 120 at rest. Problem:Physician Specific Parameters Goal:Patient to maintain parameters within physician-specified ranges throughout certification period Completed Blood Pressure Description: Notify NICO VieyraDotty Suppan if resting SBP is <100 or >160. Problem:Physician Specific Parameters Goal:Patient to maintain parameters within physician-specified ranges throughout certification period Completed SPO2 Description: Notify NICO J Suppan if pulse ox is <92% at rest. Problem:Physician Specific Parameters Goal:Patient to maintain parameters within physician-specified ranges throughout certification period Completed Instruct and educate on knowledge deficits Problem:OT Learning Assessment Goal:Demonstrate understanding of education Completed Education methods include: verbal cues. Patient/Caregiver require further education to improve knowledge and compliance with fall prevention strategies, balance training, home safety, infection control precautions, functional transfers, endurance training and discharge planning. ADL/IADLs Training Problem:OT ADLs/IADLs Goal:Improved ADLs/IADLs performance Completed Instruct patient on energy conservation and adaptive equipment/DME use and long handled brush use to facilite improved performance of seated simulated bathing with supervision or setup assistance and few verbal cues for proper use of AE. Transfer Training Problem:OT Functional Transfers Goal:Improved Functional Transfers Completed Instruct patient on safe transfers and proper techniques including DME use to perform to and from toilet and shower stall with independent with toilet transfers and Supervision for a shower stall transfers assistance and verbal cues for safety/falls prevention. education and training on the following adaptive equipment/durable medical equipment:grab bar(s), walker, raised toilet seat and shower chair. Pt. demo fair- stand balance, no LOB. Balance Training Problem:OT Balance Goal:Improved Balance Completed Pt. demo fair/fair- stand balance with use of counter top or rollator during functional mobility/reaching/patel ding various heights, no LOB, distant Supervision for safety to decrease fall risk during ADLs/IADLs. 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 documented in this encounter [facility] home Plan of care note* Visit Details Visit Type -SUPERVISOR OF INSTRUCTION ROUTINE Discipline -Speech Language Pathology Problems Problem Description Start Date Status Goals Interve ntions Discharge Disciplines: Skilled Services 09/22/2024 Active 1 goal linked to scheduled/document ed intervention 1 goal intervention scheduled/documente d in this visit Physician Specific Parameters Disciplines: Skilled Services 09/22/2024 Active 1 goal linked to scheduled/document ed intervention 3 goal interventions scheduled/documente d in this visit SUPERVISOR OF INSTRUCTION Learning Assessment Disciplines: SUPERVISOR OF INSTRUCTION 09/23/2024 Active 1 goal linked to scheduled/document ed intervention 1 goal intervention scheduled/documente d in this visit SUPERVISOR OF INSTRUCTION Language Reading Comprehension Disciplines: SUPERVISOR OF INSTRUCTION 09/23/2024 Active 1 goal linked to scheduled/document ed intervention 1 goal intervention scheduled/documente d in this visit SUPERVISOR OF INSTRUCTION Language Verbal Expression Disciplines: SUPERVISOR OF INSTRUCTION 09/23/2024 Active 1 goal linked to scheduled/document ed intervention 1 goal intervention scheduled/documente d in this visit Goals Goal Associated Problem Outcome Goal Met? Visit Notes Manage discharge planning Description: Patient/caregiver will verbalize understanding of ongoing discharge plan provided related to disease management, arrangements for outpatient and/or community services, obtaining medications, supplies, and DME, as needed throughout certification period. Discharge No Patient to maintain parameters within physician-specified ranges throughout certification period Physician Specific Parameters No Patient/Caregiver Demonstrates understanding of education Description: patient, caregiver will understand educational instruction, to be achieved by 10/16/24, extended to 11/13/24. SUPERVISOR OF INSTRUCTION Learning Assessment No Improve Reading Comprehension STG Description: Patient will demonstrate ability to read sentences for improved ability to function in the home and community as evidenced by pictures to sentences, comprehension questions and following written instructions with minimal cues in 80% accuracy. To be achieved by 10/16/24, extended to 11/06/24. SUPERVISOR OF INSTRUCTION Language Reading Comprehension No Improve Verbal Expression STG Description: Patient/caregiver will produce sentence completion, description, confrontation naming and response naming to indicate thoughts, wants, needs and ideas with others, with minimal verbal and semantic cues with/in 80% accuracy. To be achieved by 10/09/24, extended to 11/06/24. SUPERVISOR OF INSTRUCTION Language Verbal Expression No Interventions Intervention Associated Problem/Goal Status Variance Visit Notes Instruct on ongoing discharge plan Problem:Discharge Goal:Manage discharge planning Completed Ongoing Discharge plan: Discharge plan discussed with patient including frequency and duration for home ST and plan for transition to: live at home with community assistance. Heart Rate Description: Notify NICO J. Suppan if heart rate < 60 or > 120 at rest. Problem:Physician Specific Parameters Goal:Patient to maintain parameters within physician-specified ranges throughout certification period Completed Blood Pressure Description: Notify NICO VieyraDotty Suppan if resting SBP is <100 or >160. Problem:Physician Specific Parameters Goal:Patient to maintain parameters within physician-specified ranges throughout certification period Completed SPO2 Description: Notify NICO J Suppan if pulse ox is <92% at rest. Problem:Physician Specific Parameters Goal:Patient to maintain parameters within physician-specified ranges throughout certification period Completed Assessment of patient/caregiver knowledge deficit and educational instruction Problem:SUPERVISOR OF INSTRUCTION Learning Assessment Goal:Patient/Caregiver Demonstrates understanding of education Completed Education methods include: verbal cues and visual cues. Further education required to improve knowledge and compliance with functional cognitive, language skills and home exercise program. Reading Exercise Instruction Problem:SUPERVISOR OF INSTRUCTION Language Reading Comprehension Goal:Improve Reading Comprehension STG Completed SUPERVISOR OF INSTRUCTION instructed patient/caregiver to demonstrate reading comprehension of sentences with completing functional reading tasks, patient/caregiver completed with minimal cues in 78% accuracy. Verbal Expression Problem:SUPERVISOR OF INSTRUCTION Language Verbal Expression Goal:Improve Verbal Expression STG Completed SUPERVISOR OF INSTRUCTION instructed patient to produce description, confrontation naming and response naming to indicate thoughts, wants, needs and ideas with others, with moderate verbal and semantic cues with/in 78% accuracy. documented in this encounter [facility] Plan of care note* Visit Details Visit Type -SUPERVISOR OF INSTRUCTION REASSESSMENT Discipline -Speech Language Pathology Problems Problem Description Start Date Status Goals Interve ntions Discharge Disciplines: Skilled Services 09/22/2024 Active 1 goal linked to scheduled/document ed intervention 1 goal intervention scheduled/documente d in this visit Physician Specific Parameters Disciplines: Skilled Services 09/22/2024 Active 1 goal linked to scheduled/document ed intervention 3 goal interventions scheduled/documente d in this visit SUPERVISOR OF INSTRUCTION Learning Assessment Disciplines: SUPERVISOR OF INSTRUCTION 09/23/2024 Active 1 goal linked to scheduled/document ed intervention 1 goal intervention scheduled/documente d in this visit SUPERVISOR OF INSTRUCTION Language Reading Comprehension Disciplines: SUPERVISOR OF INSTRUCTION 09/23/2024 Active 1 goal linked to scheduled/document ed intervention 1 goal intervention scheduled/documente d in this visit SUPERVISOR OF INSTRUCTION Language Written Expression Disciplines: SUPERVISOR OF INSTRUCTION 09/23/2024 Active 1 goal linked to scheduled/document ed intervention 1 goal intervention scheduled/documente d in this visit SUPERVISOR OF INSTRUCTION Language Verbal Expression Disciplines: SUPERVISOR OF INSTRUCTION 09/23/2024 Active 1 goal linked to scheduled/document ed intervention 1 goal intervention scheduled/documente d in this visit SUPERVISOR OF INSTRUCTION Cognition Memory Disciplines: SUPERVISOR OF INSTRUCTION 09/23/2024 Active 1 goal linked to scheduled/document ed intervention 1 goal intervention scheduled/documente d in this visit SUPERVISOR OF INSTRUCTION Cognition Executive Function/Problem Solving/Reasonin g Disciplines: SUPERVISOR OF INSTRUCTION 09/23/2024 Active 1 goal linked to scheduled/document ed intervention 1 goal intervention scheduled/documente d in this visit SUPERVISOR OF INSTRUCTION Speech Production/Intel ligibility Disciplines: SUPERVISOR OF INSTRUCTION 10/14/2024 Active 1 goal linked to scheduled/document ed intervention 1 goal intervention scheduled/documente d in this visit Goals Goal Associated Problem Outcome Goal Met? Visit Notes Manage discharge planning Description: Patient/caregiver will verbalize understanding of ongoing discharge plan provided related to disease management, arrangements for outpatient and/or community services, obtaining medications, supplies, and DME, as needed throughout certification period. Discharge No Patient to maintain parameters within physician-specified ranges throughout certification period Physician Specific Parameters No Patient/Caregiver Demonstrates understanding of education Description: patient, caregiver will understand educational instruction, to be achieved by 10/16/24, extended to 11/13/24. SUPERVISOR OF INSTRUCTION Learning Assessment No Improve Reading Comprehension STG Description: Patient will demonstrate ability to read sentences for improved ability to function in the home and community as evidenced by pictures to sentences, comprehension questions and following written instructions with minimal cues in 80% accuracy. To be achieved by 10/16/24, extended to 11/06/24. SUPERVISOR OF INSTRUCTION Language Reading Comprehension No Improve Written Expression STG Description: Patient will demonstrate ability to write at number and letter level for improved ability to function in the home and community as evidenced by copying and writing to dictation with moderate cues in 75% accuracy. To be achieved by 10/09/24, extended to 11/06/24. SUPERVISOR OF INSTRUCTION Language Written Expression No Improve Verbal Expression STG Description: Patient/caregiver will produce sentence completion, description, confrontation naming and response naming to indicate thoughts, wants, needs and ideas with others, with minimal verbal and semantic cues with/in 80% accuracy. To be achieved by 10/09/24, extended to 11/06/24. SUPERVISOR OF INSTRUCTION Language Verbal Expression No Improve Memory Skills STG Description: Patient/caregiver will verbalize/demonstrate awareness of memory strategies for short term memory information with minimal cues verbally and visually with/in 65% accuracy. To be achieved by 10/09/24, extended to 11/06/24. SUPERVISOR OF INSTRUCTION Cognition Memory No Improve Problem Solving or Reasoning Description: Patient will complete problem solving or reasoning tasks related to basic mathematic skills generate solutions, sequencing and situation problem solving with minimal cueing with/in 70% accuracy. To be achieved by 10/09/24, extended to 11/06/24. SUPERVISOR OF INSTRUCTION Cognition Executive Function/Problem Solving/Reasoning No Improve Articulation and Intelligiblity Description: Patient will demonstrate improved production of conversation and social communication with appropriate articulator placement or use of compensatory strategies with minimal cues with/in 80% accuracy. To be achieved by 11/13/24. SUPERVISOR OF INSTRUCTION Speech Production/Intelligibility No Interventions Intervention Associated Problem/Goal Status Variance Visit Notes Instruct on ongoing discharge plan Problem:Discharge Goal:Manage discharge planning Completed Ongoing Discharge plan: Discharge plan discussed with patient including frequency and duration for home ST and plan for transition to: live at home with community assistance. Heart Rate Description: Notify NICO Deutsch if heart rate < 60 or > 120 at rest. Problem:Physician Specific Parameters Goal:Patient to maintain parameters within physician-specified ranges throughout certification period Completed Blood Pressure Description: Notify NICO Deutsch if resting SBP is <100 or >160. Problem:Physician Specific Parameters Goal:Patient to maintain parameters within physician-specified ranges throughout certification period Completed SPO2 Description: Notify NICO Deutsch if pulse ox is <92% at rest. Problem:Physician Specific Parameters Goal:Patient to maintain parameters within physician-specified ranges throughout certification period Completed Assessment of patient/caregiver knowledge deficit and educational instruction Problem:SUPERVISOR OF INSTRUCTION Learning Assessment Goal:Patient/Caregive r Demonstrates understanding of education Completed Education methods include: verbal cues. Further education required to improve knowledge and compliance with functional cognitive, language skills, speech intelligibility strategies and home exercise program. Reading Exercise Instruction Problem:SUPERVISOR OF INSTRUCTION Language Reading Comprehension Goal:Improve Reading Comprehension STG Completed SUPERVISOR OF INSTRUCTION instructed patient/caregiver to demonstrate reading comprehension of words with completing functional reading tasks, patient/caregiver completed with minimal cues in 72% accuracy. Written Expression Instruction Problem:SUPERVISOR OF INSTRUCTION Language Written Expression Goal:Improve Written Expression STG Completed SUPERVISOR OF INSTRUCTION instructed patient to write letters by independently writing: letters with minimal cues in 20% accuracy. Verbal Expression Problem:SUPERVISOR OF INSTRUCTION Language Verbal Expression Goal:Improve Verbal Expression STG Completed SUPERVISOR OF INSTRUCTION instructed patient to produce description, confrontation naming and response naming to indicate thoughts, wants, needs and ideas with others, with minimal verbal and semantic cues with/in 68% accuracy. Memory Strategy Education Memory Exercises and Techniques Problem:SUPERVISOR OF INSTRUCTION Cognition Memory Goal:Improve Memory Skills STG Completed Instructed patient/caregiver on use of memory strategies writing, repetition and association to improve ability to recall short term memory tasks patient completed with minimal cueing with/in 40% accuracy. Problem Solving Reasoning Problem:SUPERVISOR OF INSTRUCTION Cognition Executive Function/Problem Solving/Reasoning Goal:Improve Problem Solving or Reasoning Completed Instructed patient on exercises and tasks to improve planning and self-monitoring skills for completion of tasks in home environment: sequencing, cause and effect and reasoning, patient completed with minimal cueing with/in 60% accuracy. Articulation Instruction Intelligibility Training Motor Planning Precision Training Speech Intelligiblity Exercise Problem:SUPERVISOR OF INSTRUCTION Speech Production/Intelligib ility Goal:Improve Articulation and Intelligiblity Completed SUPERVISOR OF INSTRUCTION instructed patient to use the SOS method (slow down, overarticulate, speak up) in conversation with minimal cues with/in 70% accuracy. documented in this encounter [facility] for referral (narrative)* Outpatient Procedure (Routine) - Closed Specialty Diagnoses / Procedures Referred By Contac t Referred To Contact [facility] Diagnoses Paroxysmal atrial fibrillation (HCC) Procedures ECG COMPLETE ECG ROUTINE ECG W/LEAST 12 LDS W/I&R Sandra Horne MD [address] [place] [address] [facility] [place] [id number] Referral ID Status Reason Start Date Expiration Date V isits Requested Visits Authorized [id number] Closed Auto-Generate d Referral 12/24/2022 12/24/2023 1 1 [facility] for referral (narrative)* Outpatient Procedure (Routine) - Pending Review Specialty Diagnoses / Procedures Referred By Contac t Referred To Contact [facility] Diagnoses Right carotid bruit Procedures US CAROTID ARTERIES CECI VAS LAB DUPLEX SCAN EXTRACRANIAL ART COMPL BI STUDY Breann Schmitz APRN.AVIATION ELECTRONIC WARFARE OPERATOR [address] [place] [address] [address] Referral ID Status Reason Start Date Expiration Date Visits Requested Visits Authorized [id number] Pending Review Auto-Generat ed Referral 05/26/2023 05/25/2024 1 1 * MRI/CT (Urgent) - Authorized Specialty Diagnoses / Procedures [facility] Diagnoses Transient cerebral ischemia, unspecified type Procedures CT BRAIN WO IVCON CT HEAD/BRAIN W/O CONTRAST MATERIAL Breann Schmitz APRN.AVIATION ELECTRONIC WARFARE OPERATOR [address] [place] [address] [place] [address] Referral ID Status Reason Start Date Expiration Date Visits Requested Visits Authorized [id number] Authorized Auto-Generat ed Referral 05/26/2023 06/24/2024 1 1 [facility] for referral (narrative)* Diagnostic Procedure Only (Routine) - Closed Specialty Diagnoses / Procedures Referred By Contac t Referred To Contact XR IMAGING Diagnoses Pain Procedures XR KNEE GENERAL 4V AP BOTH/PA BOTH/LAT/MERC LEFT RADIOLOGIC EXAM KNEE COMPLETE 4/MORE VIEWS Tamia Quezada PA-C [address] [place] [address] [place] [address] Referral ID Status Reason Start Date Expiration Date V isits Requested Visits Authorized [id number] Closed Auto-Generate d Referral 05/13/2023 06/11/2024 1 1 [facility] for referral (narrative)* Diagnostic Procedure Only (Routine) - Closed Specialty Diagnoses / Procedures Referred By Contac t Referred To Contact XR IMAGING Diagnoses Acute pain of right shoulder Procedures XR SHOULDER [id number] AP/TRUE AP RIGHT RADEX SHOULDER COMPLETE MINIMUM 2 VIEWS Jose G Harrington PA-C [address] [place] [address] [place] [address] Referral ID Status Reason Start Date Expiration Date V isits Requested Visits Authorized [id number] Closed Auto-Generate d Referral 03/31/2023 04/29/2024 1 1 [facility] for referral (narrative)* Diagnostic Procedure Only (Routine) - Closed Specialty Diagnoses / Procedures Referred By Contac t Referred To Contact XR IMAGING Diagnoses Left thigh pain Procedures XR FEMUR GENERAL 2V AP/LAT LEFT RADIOLOGIC EXAMINATION FEMUR MINIMUM 2 VIEWS Breann Schmitz APRN.CNP [address] [place] [address] [place] [address] Referral ID Status Reason Start Date Expiration Date V isits Requested Visits Authorized [id number] Closed Auto-Generate d Referral 06/13/2021 07/13/2022 1 1 * Diagnostic Procedure Only (Routine) - Closed Specialty Diagnoses / Procedures Referred By Contac t Referred To Contact XR IMAGING Diagnoses Left thigh pain Procedures XR HIP GENERAL 3V PELV/AP/LAT LEFT RADEX HIP UNILATERAL WITH PELVIS 2-3 VIEWS Breann Schmitz APRN.CNP [address] [place] [address] [place] [address] Referral ID Status Reason Start Date Expiration Date V isits Requested Visits Authorized [id number] Closed Auto-Generate d Referral 06/13/2021 07/13/2022 1 1 [facility] for referral (narrative)No reason for [facility]: Reason for visit Narrative* Diagnostic Procedure Only (Routine) - Closed Specialty Diagnoses / Procedures Referred By Contac t Referred To Contact XR IMAGING Diagnoses Pain Procedures XR KNEE GENERAL 4V AP BOTH/PA BOTH/LAT/MERC LEFT RADIOLOGIC EXAM KNEE COMPLETE 4/MORE VIEWS Tamia Quezada PA-C [address] [place] [address] [place] [address] Referral ID Status Reason Start Date Expiration Date V isits Requested Visits Authorized [id number] Closed Auto-Generate d Referral 05/13/2023 06/11/2024 1 1 [facility] for visit Narrative* Diagnostic Procedure Only (Routine) - Closed Specialty Diagnoses / Procedures Referred By Contac t Referred To Contact XR IMAGING Diagnoses Acute pain of right shoulder Procedures XR SHOULDER [id number] AP/TRUE AP RIGHT RADEX SHOULDER COMPLETE MINIMUM 2 VIEWS Jose G Harrington PA-C [address] [place] [address] [place] [address] Referral ID Status Reason Start Date Expiration Date V isits Requested Visits Authorized [id number] Closed Auto-Generate d Referral 03/31/2023 04/29/2024 1 1 [facility] Procedure Only (Routine) - Closed Specialty Diagnoses / Procedures Referred By Contac t Referred To Contact XR IMAGING Diagnoses Left thigh pain Procedures XR FEMUR GENERAL 2V AP/LAT LEFT RADIOLOGIC EXAMINATION FEMUR MINIMUM 2 VIEWS Breann Schmitz, EAN.AVIATION ELECTRONIC WARFARE OPERATOR [address] [place] [address] [place] [address] Referral ID Status Reason Start Date Expiration Date V isits Requested Visits Authorized [id number] Closed Auto-Generate d Referral 06/13/2021 07/13/2022 1 1 [facility] Auth/Cert (Routine) Specialty Diagnoses / Procedures Referred By Contac t Referred To Contact [facility] [address] [place] [id number] Phone: tel: Referral ID Status Reason Start Date Expiration Date Visits Re quested Visits Authorized [id number] 1 1 [facility] Summary Purpose Family History No Family History Records Found Relationship Condition Age at Onset Recorded Date/T ofe mother Malignant neoplasm Unknown Hypertension Unknown Cerebrovascular accident (CVA) Unknown father Cardiac disease Unknown brother Ischemic heart disease Unknown sister Hypertension Unknown Diabetes mellitus Unknown Advance Directives No Advanced Directives Records FoundDocuments on File Type Date Recorded Patient Commodity Management Specialist Expl anation Advance Directive(s) 09/01/2020 6:44 AM Advance Directive(s) 08/24/2020 1:37 PM Advance Directive(s) 12/26/2016 9:06 AM Advance Directive(s) 10/03/2014 6:18 AM Advance Directive(s) 05/30/2011 8:35 AM Advance Directive Response Recorded Date/ Time Living Will Yes April 07, 022 9:24pm Power of Manager Of Production Yes April 07, 2022 9:24pm Name of Medical Power of Manager Of Production arlyn carvalho April 07, 2022 9:24pm Documents on File Type Date Recorded Patient Commodity Management Specialist Expl anation Advance Directive(s) 10/03/2014 6:18 AM Advance Directive(s) 05/30/2011 8:35 AM Documents on File Type Date Recorded Patient Commodity Management Specialist Expl anation Advance Directive(s) 10/03/2014 6:18 AM Advance Directive(s) 05/30/2011 8:35 AM Advance Directive Response Recorded Date/ Time Do you have a Healthcare Power of Manager Of Production? Yes August 16, 2024 4:44pm Do you have a Healthcare Power of Manager Of Production? No August 18, 2024 10:51am Advance Directive Response Recorded Date/ Time Do you have a Healthcare Power of Manager Of Production? Yes August 16, 2024 4:44pm Do you have a Healthcare Power of Manager Of Production? No August 18, 2024 3:53pm Advance Directive Response Recorded Date/ Time Do you have a Healthcare Pow er of Manager Of Production? Yes August 16, 2024 4:44pm Do you have a Healthcare Pow er of Manager Of Production? No August 18, 2024 3:53pm Do you have a Healthcare Pow er of Manager Of Production? Yes August 23, 2024 11:37am Name of Medical Power of Manager Of Production Aditi Hampton er, daughter August 23, 2024 11:37am Date Activated Date Inactivated Comments 09/22/2024 6:00 PM Date Activated Date Inactivated Comments 09/22/2024 6:00 PM Advance Directive Response Recorded Date/ Time Do you have a Healthcare Pow er of Manager Of Production? Yes August 16, 2024 4:44pm Do you have a Healthcare Pow er of Manager Of Production? No August 18, 2024 3:53pm Do you have a Healthcare Pow er of Manager Of Production? Yes August 23, 2024 11:37am Name of Medical Power of Manager Of Production Aditi mann, daughter August 23, 2024 11:37am Do you have a Healthcare Pow er of Manager Of Production? Yes October 18, 2024 11:41am Name of Medical Power of Manager Of Production Aditi carvalho October 18, 2024 11:41am Documents on File Type Date Recorded Patient Commodity Management Specialist Expl anation Advance Directives/Living Will 01/21/2008 Date Activated Date Inactivated Comments 10/18/2024 2:15 PM Chief Complaint Chief Complaint Description Start Date left shoulder pain Preliminary chief co mplaint data, not yet signed by the author as of Chief Complaint and Reason for Visit Chief Complaint fall Chief Complaint Admit Date CONFUSON August 16, 2024 3:40pm DYSARTHIA, DYSMETRIA AND ALTERED MENTAL STATUS August 18, 2024 1:06pm Reason for Visit Admit Date Acute UTI August 18, 2024 1:06pm AMS (altered mental status) August 18 1:06pm Stroke August 18, 2024 1:06pm Chief Complaint Admit Date CONFUSON August 16, 2024 3:40pm STROKE August 18, 2024 1:06pm STROKE August 19, 2024 4:27pm STROKE August 20, 2024 11:40a m STROKE August 21, 2024 1:27p m STROKE August 22, 2024 7:26a m Reason for Visit Admit Date Abnormal urinalysis August 18, 2024 1:06pm Dysarthria August 18, 2024 1:06pm Dysmetria August 18, 2024 1:06pm Acute UTI August 18, 2024 1:06pm AMS (altered mental status) August 18 1:06pm Stroke August 18, 2024 1:06pm Chief Complaint Admit Date CONFUSON August 16, 2024 3:40pm STROKE August 18, 2024 1:06pm STROKE August 19, 2024 4:27pm STROKE August 20, 2024 11:40a m STROKE August 21, 2024 1:27p m STROKE August 22, 2024 7:26a m STROKE August 22, 2024 1:55p m STROKE August 23, 2024 11:26 am STROKE August 26, 2024 12:04 pm STROKE August 30, 2024 9:24a m STROKE August 31, 2024 4:25p m STROKE September 02, 2024 10:38 am STROKE September 05, 2024 8:48a m STROKE September 07, 2024 4:20p m STROKE September 09, 2024 2:15p m STROKE September 13, 2024 11:58 am STROKE September 14, 2024 10:58 am STROKE September 16, 2024 10:33 am Reason for Visit Admit Date Dysarthria August 18, 2024 1:06pm Abnormal urinalysis August 18, 2024 1:06pm Acute UTI August 18, 2024 1:06pm AMS (altered mental status) August 18 1:06pm Dysmetria August 18, 2024 1:06pm Stroke August 18, 2024 1:06pm Acute cystitis August 22, 2024 1:55p m Acute right-sided weakness August 22 1:55pm Aphasia complicating stroke August 22 1:55pm Ataxia due to acute cerebrovascular dise ase August 22, 2024 1:55pm Chronic anticoagulation August 22, 2024 1 :55pm Cognitive dysfunction due to acute strok e August 22, 2024 1:55pm Debility August 22, 2024 1:55p m Dysarthria August 22, 2024 1:55p m Dyslipidemia August 22, 2024 1:55p m Heme + stool August 22, 2024 1:55p m Ischemic cerebrovascular accident (CVA) August 22, 2024 1:55pm Malodorous urine August 22, 2024 1:55p m Normochromic normocytic anemia August 22, 2024 1:55pm Paroxysmal atrial fibrillation August 22, 2024 1:55pm Thoracic kyphosis August 22, 2024 1:55p m HTN (hypertension) August 22, 2024 1:55p m Chief Complaint Admit Date CONFUSON August 16, 2024 3:40pm STROKE August 18, 2024 1:06pm STROKE August 19, 2024 4:27pm STROKE August 20, 2024 11:40a m STROKE August 21, 2024 1:27p m STROKE August 22, 2024 7:26a m STROKE August 22, 2024 1:55p m STROKE August 23, 2024 11:26 am STROKE August 26, 2024 12:04 pm STROKE August 30, 2024 9:24a m STROKE August 31, 2024 4:25p m STROKE September 02, 2024 10:38 am STROKE September 05, 2024 8:48a m STROKE September 07, 2024 4:20p m STROKE September 09, 2024 2:15p m STROKE September 13, 2024 11:58 am STROKE September 14, 2024 10:58 am STROKE September 16, 2024 10:33 am STROKE September 18, 2024 11:47 am STROKE October 04, 2024 8:55 am Reason for Visit Admit Date Dysarthria August 18, 2024 1:06pm Abnormal urinalysis August 18, 2024 1:06pm Acute UTI August 18, 2024 1:06pm AMS (altered mental status) August 18 1:06pm Dysmetria August 18, 2024 1:06pm Stroke August 18, 2024 1:06pm Acute right-sided weakness August 22 1:55pm Aphasia complicating stroke August 22 1:55pm Cognitive dysfunction due to acute strok e August 22, 2024 1:55pm Debility August 22, 2024 1:55p m Dysarthria August 22, 2024 1:55p m Heme + stool August 22, 2024 1:55p m Ischemic cerebrovascular accident (CVA) August 22, 2024 1:55pm Normochromic normocytic anemia August 22, 2024 1:55pm Acute cystitis August 22, 2024 1:55p m Ataxia due to acute cerebrovascular dise ase August 22, 2024 1:55pm Malodorous urine August 22, 2024 1:55p m Chronic anticoagulation August 22, 2024 1 :55pm Dyslipidemia August 22, 2024 1:55p m HTN (hypertension) August 22, 2024 1:55p m Paroxysmal atrial fibrillation August 22, 2024 1:55pm Thoracic kyphosis August 22, 2024 1:55p m Chief Complaint Admit Date CONFUSON August 16, 2024 3:40pm STROKE August 18, 2024 1:06pm STROKE August 19, 2024 4:27pm STROKE August 20, 2024 11:40a m STROKE August 21, 2024 1:27p m STROKE August 22, 2024 7:26a m STROKE August 22, 2024 1:55p m STROKE August 23, 2024 11:26 am STROKE August 26, 2024 12:04 pm STROKE August 30, 2024 9:24a m STROKE August 31, 2024 4:25p m STROKE September 02, 2024 10:38 am STROKE September 05, 2024 8:48a m STROKE September 07, 2024 4:20p m STROKE September 09, 2024 2:15p m STROKE September 13, 2024 11:58 am STROKE September 14, 2024 10:58 am STROKE September 16, 2024 10:33 am STROKE September 18, 2024 11:47 am STROKE October 04, 2024 8:55 am S/P [facility] 09/19October 12, 2024 9:13a m Reason for Visit Admit Date Dysarthria August 18, 2024 1:06pm Abnormal urinalysis August 18, 2024 1:06pm Acute UTI August 18, 2024 1:06pm AMS (altered mental status) August 18 1:06pm Dysmetria August 18, 2024 1:06pm Stroke August 18, 2024 1:06pm Acute right-sided weakness August 22 1:55pm Aphasia complicating stroke August 22 1:55pm Cognitive dysfunction due to acute strok e August 22, 2024 1:55pm Debility August 22, 2024 1:55p m Dysarthria August 22, 2024 1:55p m Heme + stool August 22, 2024 1:55p m Ischemic cerebrovascular accident (CVA) August 22, 2024 1:55pm Normochromic normocytic anemia August 22, 2024 1:55pm Paroxysmal atrial fibrillation August 22, 2024 1:55pm Acute cystitis August 22, 2024 1:55p m Ataxia due to acute cerebrovascular dise ase August 22, 2024 1:55pm Malodorous urine August 22, 2024 1:55p m Chronic anticoagulation August 22, 2024 1 :55pm Dyslipidemia August 22, 2024 1:55p m HTN (hypertension) August 22, 2024 1:55p m Thoracic kyphosis August 22, 2024 1:55p m Acute right-sided weakness October 04 8:55am Cerebral aneurysm without rupture September 132024 8:55am Cognitive dysfunction due to acute strok e October 04, 2024 8:55am Debility October 04, 2024 8:55 am Ischemic cerebrovascular accident (CVA) October 04, 2024 8:55am Paroxysmal atrial fibrillation September 8:55am Chief Complaint Admit Date CONFUSON August 16, 2024 3:40pm STROKE August 18, 2024 1:06pm STROKE August 19, 2024 4:27pm STROKE August 20, 2024 11:40a m STROKE August 21, 2024 1:27p m STROKE August 22, 2024 7:26a m STROKE August 22, 2024 1:55p m STROKE August 23, 2024 11:26 am STROKE August 26, 2024 12:04 pm STROKE August 30, 2024 9:24a m STROKE August 31, 2024 4:25p m STROKE September 02, 2024 10:38 am STROKE September 05, 2024 8:48a m STROKE September 07, 2024 4:20p m STROKE September 09, 2024 2:15p m STROKE September 13, 2024 11:58 am STROKE September 14, 2024 10:58 am STROKE September 16, 2024 10:33 am STROKE September 18, 2024 11:47 am STROKE October 04, 2024 8:55 am S/P [facility] 09/19October 12, 2024 9:13a m stroke alert October 18, 2024 11:01 am Reason for Visit Admit Date Dysarthria August 18, 2024 1:06pm Abnormal urinalysis August 18, 2024 1:06pm Acute UTI August 18, 2024 1:06pm AMS (altered mental status) August 18 1:06pm Dysmetria August 18, 2024 1:06pm Stroke August 18, 2024 1:06pm Acute right-sided weakness August 22 1:55pm Aphasia complicating stroke August 22 1:55pm Cognitive dysfunction due to acute strok e August 22, 2024 1:55pm Debility August 22, 2024 1:55p m Dysarthria August 22, 2024 1:55p m Heme + stool August 22, 2024 1:55p m Normochromic normocytic anemia August 22, 2024 1:55pm Dyslipidemia August 22, 2024 1:55p m HTN (hypertension) August 22, 2024 1:55p m Ischemic cerebrovascular accident (CVA) August 22, 2024 1:55pm Paroxysmal atrial fibrillation August 22, 2024 1:55pm Acute cystitis August 22, 2024 1:55p m Ataxia due to acute cerebrovascular dise ase August 22, 2024 1:55pm Malodorous urine August 22, 2024 1:55p m Chronic anticoagulation August 22, 2024 1 :55pm Thoracic kyphosis August 22, 2024 1:55p m Acute right-sided weakness October 04 8:55am Cognitive dysfunction due to acute strok e October 04, 2024 8:55am Debility October 04, 2024 8:55 am Cerebral aneurysm without rupture September 132024 8:55am Ischemic cerebrovascular accident (CVA) October 04, 2024 8:55am Paroxysmal atrial fibrillation September 8:55am Cerebral aneurysm without rupture October 122024 9:13am Dyslipidemia October 12, 2024 9:13a m HTN (hypertension) October 12, 2024 9:13a m Ischemic cerebrovascular accident (CVA) October 12, 2024 9:13am Paroxysmal atrial fibrillation October 12, 2024 9:13am Reason for Referral Specialty Diagnoses / Procedures Referred By Contac t Referred To Contact Cardiology Diagnoses Paroxysmal atrial fibrillation (HCC) Procedures CONSULT TO CARDIOLOGY OFFICE/OUTPATIENT [facility] 60-74 MINUTES Jose G Harrington PA-C [address] [place] [address] Referral ID Status Reason Start Date Expiration Date Visits Requested Visits Authorized [id number] Pending Review PCP Requested Referral 04/11/2023 1 1 Specialty Diagnoses / Procedures Referred By Contac t Referred [facility] Diagnoses Paroxysmal atrial fibrillation (HCC) Procedures ECHO ECHO TTHRC R-T 2D W/WOM-MODE COMPL SPEC&COLR D Jose G Harrington PA-C [address] [place] [address] [facility] [place] [address] [place] [address] Referral ID Status Reason Start Date Expiration Date V isits Requested Visits Authorized [id number] Closed Auto-Generate d Referral 04/11/2022 04/11/2023 1 1 Specialty Diagnoses / Procedures Referred By Contac t Referred To Contact CT IMAGING Diagnoses Transient cerebral ischemia, unspecified type Procedures CT BRAIN WO IVCON CT HEAD/BRAIN W/O CONTRAST MATERIAL Breann Schmitz, COMMUNITY RELATIONS OFFICER.AVIATION ELECTRONIC WARFARE OPERATOR [address] [place] [address] [place] [address] Referral ID Status Reason Start Date Expiration Date V isits Requested Visits Authorized [id number] Closed Auto-Generate d Referral 05/26/2023 06/24/2024 1 1 Specialty Diagnoses / Procedures Referred By Contac t Referred To Contact CT IMAGING Diagnoses Bilateral carotid artery stenosis Occlusion and stenosis of unspecified carotid artery Fibromuscular dysplasia (HCC) Procedures CTA NECK W IVCON CT ANGIOGRAPHY NECK W/CONTRAST/NONCONTRAST Hetal Gallardo, DO [address] [place] [address] Ct Imaging [facility] Referral ID Status Reason Start Date Expiration Date Visits Requested Visits Authorized [id number] Authorized Auto-Generat ed Referral 07/08/2023 08/06/2024 1 1 Specialty Diagnoses / Procedures Referred By Contac t Referred To Contact CT IMAGING Diagnoses Bilateral carotid artery stenosis Occlusion and stenosis of unspecified carotid artery Fibromuscular dysplasia (HCC) Procedures CTA HEAD W IVCON CT ANGIOGRAPHY HEAD W/CONTRAST/NONCONTRAST Hetal Gallardo, DO [address] [place] [id number] Imaging [place] [address] Referral ID Status Reason Start Date Expiration Date Visits Requested Visits Authorized [id number] Authorized Auto-Generat ed Referral 07/08/2023 08/06/2024 1 1 Additional Source Comments INFORMATION SOURCE (unrecogn ized section and content) DATE CREATED AUTHOR 10/08/2017 [facility] DATE CREATED AUTHOR AUTHOR'S ORGANIZ ATION 11/18/2024 [facility] DATE CREATED AUTHOR AUTHOR'S ORGANIZ ATION 01/07/2025 [facility] DATE CREATED AUTHOR AUTHOR'S ORGANIZ ATION 02/16/2025 [facility] Reason for Visit (unrecogniz ed section and content) Reason Comments Follow Up Injections Specialty Diagnoses / Procedures Referred By Contac t Referred To Contact Orthopedics / ORTHOPAEDIC SURGERY Diagnoses Unilateral primary osteoarthritis, left knee Procedures EUFLEXXA INJ PER DOSE Gel One or payor preferred Tamia Quezada PA-C [address] [place] [address] Tamia Quezada PA-C [address] [place] [address] Referral ID Status Reason Start Date Expiration Date V isits Requested Visits Authorized [id number] Authorized 06/30/2023 06/29/2024 99 99 Reason Comments PT Discharge Specialty Diagnoses / Procedures Referred By Contac t Referred To Contact [facility] Diagnoses DDD (degenerative disc disease), cervical Primary osteoarthritis of right hip Rotator cuff tear arthropathy, left Acute pain of right shoulder Cervicalgia Procedures CONSULT TO PHYSICAL THERAPY PHYSICAL THERAPY EVALUATION [facility] COMPLEX 45 MINS Jose G Harrington PA-C [address] [place] [address] [facility] [place] [address] [place] [address] Referral ID Status Reason Start Date Expiration Date V isits Requested Visits Authorized [id number] Closed Auto-Generate d Referral 04/14/2023 04/13/2024 10 10 Reason Comments Physical Therapy Referral ID Status Reason Start Date Expiration Date Visits Requested Visits Authorized [id number] Authorized Auto-Generat ed Referral 04/14/2023 04/13/2024 10 10 Reason Comments Physical Therapy Patient Left Without Being Seen Reason Comments Patient Left Without Being Seen Reason For Visit Description Start Date Test Result Preliminary reason f or visit data, not yet signed by the author as of left shoulder pain Reason Onset Date Comments Refill Request 08/01/2021 Reason Comments Lab Orders Reason Onset Date Comments Community Monitoring Outreach 10/24/2021 [facility]M Enrollment - Declined/Not interested in home monitoring Reason Comments Ear Pain Reason Comments Hospital F/U Fall 04/06/22 d/c Reason Comments 6 Month Exam Reason Comments Ear Problem Right ear is clogged for 1 week Reason Comments Consult Specialty Diagnoses / Procedures [facility] To Contact Card[facility] Diagnoses Paroxysmal atrial fibrillation (HCC) Procedures CONSULT TO CARDIOLOGY OFFICE/OUTPATIENT [facility] MDM 60-74 MINUTES Jose G Harrington PA-C [address] [place] [address] Referral ID Status Reason Start Date Expiration Date Visits Requested Visits Authorized [id number] Pending Review PCP Requested Referral 2 04/11/2023 1 1 Reason Comments PT Progress Note Reason Comments Dizziness Reason Comments Dizziness Reason Comments Radiology CT Specialty Diagnoses / Procedures [facility] Contact CT [facility] Diagnoses Transient cerebral ischemia, unspecified type Procedures CT BRAIN WO IVCON CT HEAD/BRAIN W/O CONTRAST MATERIAL Breann Schmitz, EAN.AVIATION ELECTRONIC WARFARE OPERATOR [address] [place] [address] Ct [place] [id number] Referral ID Status Reason Start Date Expiration Date V isits Requested Visits Authorized [id number] Closed Auto-Generate d Referral 05/26/2023 06/24/2024 1 1 Reason Comments Results Reason Comments Recheck 1 week follow up Reason Comments Established Patient Pain Reason Comments Consult Carotid Stenosis Dr. Ross Referr al Specialty Diagnoses / Procedures Referred By Stacey mayo Referred To Contact Vascular Surgery Diagnoses Bilateral carotid artery stenosis Procedures CONSULT TO VASCULAR SURGERY OFFICE/OUTPATIENT [facility] 60 MINUTES Moses Ross MD [address] [place] [address] Referral ID Status Reason Start Date Expiration Date V isits Requested Visits Authorized [id number] Closed PCP Requested Referral 06/06/2023 06/05/2024 1 1 Reason Comments urinary symptoms Reason Comments UTI Reason Comments Established Patient Injections Reason Comments Ingrown Toenail L great toe redness, swelling, painful, was seeping blood this am x 1 weekHas appt with Felicitas baker [id number] October 21 Reason Comments Follow Up 6 month Reason Comments Follow Up Review test results Reason Comments Acute Visit Head congestion 2-3 weeks Reason Comments Refill Request Reason Comments Home Care Confirmation Call Reason Comments Home Care MD TO FOLLOW Reason Comments Home Care Reason Comments Hospital F/U Reason Comments Home Care Requesting out patie nt's speech therapy orders Reason Comments UTI Urinary incontinence at night and some confusion URI Runny nose Reason Onset Date Comments Refill Request 10/15/2024 Reason Comments Home Care Notification of hosp ital admission. Reason Onset Date Comments Allied Health Visit 11/04/2024 Medication a dherence outreach Reason Comments Fax Neurovascular [facility] in [place] Reason Comments Extremity Weakness Specialty Diagnoses / Procedures Referred By Stacey mayo Referred To Contact Diagnoses Basal ganglia hemorrhage Stroke (Hemorrhagic stroke) Zoya Sher MD [address] [place] [address] Phone: tel: fax: [facility] [address] [place] [address] Referral ID Status Reason Start Date Expiration Date Visits Re quested Visits Authorized [id number] 1 1 Source Comments (unrecognize d section and content) In the event this informatio n is protected by the Federal Confidentiality of Alcohol and Drug Abuse Patient Records regulations: The Federal rules restrict any use of the information to criminally investigate or prosecute any alcohol or drug abuse patient.[facility]In the event this information is protected by the Federal Confidentiality of Alcohol and Drug Abuse Patient Records regulations: The Federal rules restrict any use of the information to criminally investigate or prosecute any alcohol or drug abuse patient.[facility] HamiltonIn the event this information is protected by the Federal Confidentiality of Alcohol and Drug Abuse Patient Records regulations: The Federal rules restrict any use of the information to criminally investigate or prosecute any alcohol or drug abuse patient.[facility] HamiltonIn the event this information is protected by the Federal Confidentiality of Alcohol and Drug Abuse Patient Records regulations: The Federal rules restrict any use of the information to criminally investigate or prosecute any alcohol or drug abuse patient.[facility] HamiltonIn the event this information is protected by the Federal Confidentiality of Alcohol and Drug Abuse Patient Records regulations: The Federal rules restrict any use of the information to criminally investigate or prosecute any alcohol or drug abuse patient.[facility] HamiltonIn the event this information is protected by the Federal Confidentiality of Alcohol and Drug Abuse Patient Records regulations: The Federal rules restrict any use of the information to criminally investigate or prosecute any alcohol or drug abuse patient.[facility] HamiltonIn the event this information is protected by the Federal Confidentiality of Alcohol and Drug Abuse Patient Records regulations: The Federal rules restrict any use of the information to criminally investigate or prosecute any alcohol or drug abuse patient.[facility] HamiltonIn the event this information is protected by the Federal Confidentiality of Alcohol and Drug Abuse Patient Records regulations: The Federal rules restrict any use of the information to criminally investigate or prosecute any alcohol or drug abuse patient.[facility] HamiltonIn the event this information is protected by the Federal Confidentiality of Alcohol and Drug Abuse Patient Records regulations: The Federal rules restrict any use of the information to criminally investigate or prosecute any alcohol or drug abuse patient.[facility] HamiltonIn the event this information is protected by the Federal Confidentiality of Alcohol and Drug Abuse Patient Records regulations: The Federal rules restrict any use of the information to criminally investigate or prosecute any alcohol or drug abuse patient.[facility] HamiltonIn the event this information is protected by the Federal Confidentiality of Alcohol and Drug Abuse Patient Records regulations: The Federal rules restrict any use of the information to criminally investigate or prosecute any alcohol or drug abuse patient.[facility] HamiltonIn the event this information is protected by the Federal Confidentiality of Alcohol and Drug Abuse Patient Records regulations: The Federal rules restrict any use of the information to criminally investigate or prosecute any alcohol or drug abuse patient.[facility] HamiltonIn the event this information is protected by the Federal Confidentiality of Alcohol and Drug Abuse Patient Records regulations: The Federal rules restrict any use of the information to criminally investigate or prosecute any alcohol or drug abuse patient.[facility] HamiltonIn the event this information is protected by the Federal Confidentiality of Alcohol and Drug Abuse Patient Records regulations: The Federal rules restrict any use of the information to criminally investigate or prosecute any alcohol or drug abuse patient.[facility] HamiltonIn the event this information is protected by the Federal Confidentiality of Alcohol and Drug Abuse Patient Records regulations: The Federal rules restrict any use of the information to criminally investigate or prosecute any alcohol or drug abuse patient.[facility] HamiltonIn the event this information is protected by the Federal Confidentiality of Alcohol and Drug Abuse Patient Records regulations: The Federal rules restrict any use of the information to criminally investigate or prosecute any alcohol or drug abuse patient.[facility] HamiltonIn the event this information is protected by the Federal Confidentiality of Alcohol and Drug Abuse Patient Records regulations: The Federal rules restrict any use of the information to criminally investigate or prosecute any alcohol or drug abuse patient.[facility] HamiltonIn the event this information is protected by the Federal Confidentiality of Alcohol and Drug Abuse Patient Records regulations: The Federal rules restrict any use of the information to criminally investigate or prosecute any alcohol or drug abuse patient.[facility] HamiltonIn the event this information is protected by the Federal Confidentiality of Alcohol and Drug Abuse Patient Records regulations: The Federal rules restrict any use of the information to criminally investigate or prosecute any alcohol or drug abuse patient.[facility] HamiltonIn the event this information is protected by the Federal Confidentiality of Alcohol and Drug Abuse Patient Records regulations: The Federal rules restrict any use of the information to criminally investigate or prosecute any alcohol or drug abuse patient.[facility] HamiltonIn the event this information is protected by the Federal Confidentiality of Alcohol and Drug Abuse Patient Records regulations: The Federal rules restrict any use of the information to criminally investigate or prosecute any alcohol or drug abuse patient.[facility] HamiltonIn the event this information is protected by the Federal Confidentiality of Alcohol and Drug Abuse Patient Records regulations: The Federal rules restrict any use of the information to criminally investigate or prosecute any alcohol or drug abuse patient.[facility] HamiltonIn the event this information is protected by the Federal Confidentiality of Alcohol and Drug Abuse Patient Records regulations: The Federal rules restrict any use of the information to criminally investigate or prosecute any alcohol or drug abuse patient.[facility] HamiltonIn the event this information is protected by the Federal Confidentiality of Alcohol and Drug Abuse Patient Records regulations: The Federal rules restrict any use of the information to criminally investigate or prosecute any alcohol or drug abuse patient.[facility] HamiltonIn the event this information is protected by the Federal Confidentiality of Alcohol and Drug Abuse Patient Records regulations: The Federal rules restrict any use of the information to criminally investigate or prosecute any alcohol or drug abuse patient.[facility] HamiltonIn the event this information is protected by the Federal Confidentiality of Alcohol and Drug Abuse Patient Records regulations: The Federal rules restrict any use of the information to criminally investigate or prosecute any alcohol or drug abuse patient.[facility] HamiltonIn the event this information is protected by the Federal Confidentiality of Alcohol and Drug Abuse Patient Records regulations: The Federal rules restrict any use of the information to criminally investigate or prosecute any alcohol or drug abuse patient.[facility] HamiltonIn the event this information is protected by the Federal Confidentiality of Alcohol and Drug Abuse Patient Records regulations: The Federal rules restrict any use of the information to criminally investigate or prosecute any alcohol or drug abuse patient.[facility] HamiltonIn the event this information is protected by the Federal Confidentiality of Alcohol and Drug Abuse Patient Records regulations: The Federal rules restrict any use of the information to criminally investigate or prosecute any alcohol or drug abuse patient.[facility] HamiltonIn the event this information is protected by the Federal Confidentiality of Alcohol and Drug Abuse Patient Records regulations: The Federal rules restrict any use of the information to criminally investigate or prosecute any alcohol or drug abuse patient.[facility] HamiltonIn the event this information is protected by the Federal Confidentiality of Alcohol and Drug Abuse Patient Records regulations: The Federal rules restrict any use of the information to criminally investigate or prosecute any alcohol or drug abuse patient.[facility] HamiltonIn the event this information is protected by the Federal Confidentiality of Alcohol and Drug Abuse Patient Records regulations: The Federal rules restrict any use of the information to criminally investigate or prosecute any alcohol or drug abuse patient.[facility] HamiltonIn the event this information is protected by the Federal Confidentiality of Alcohol and Drug Abuse Patient Records regulations: The Federal rules restrict any use of the information to criminally investigate or prosecute any alcohol or drug abuse patient.[facility] HamiltonIn the event this information is protected by the Federal Confidentiality of Alcohol and Drug Abuse Patient Records regulations: The Federal rules restrict any use of the information to criminally investigate or prosecute any alcohol or drug abuse patient.[facility] HamiltonIn the event this information is protected by the Federal Confidentiality of Alcohol and Drug Abuse Patient Records regulations: The Federal rules restrict any use of the information to criminally investigate or prosecute any alcohol or drug abuse patient.[facility] HamiltonIn the event this information is protected by the Federal Confidentiality of Alcohol and Drug Abuse Patient Records regulations: The Federal rules restrict any use of the information to criminally investigate or prosecute any alcohol or drug abuse patient.[facility] HamiltonIn the event this information is protected by the Federal Confidentiality of Alcohol and Drug Abuse Patient Records regulations: The Federal rules restrict any use of the information to criminally investigate or prosecute any alcohol or drug abuse patient.[facility] HamiltonIn the event this information is protected by the Federal Confidentiality of Alcohol and Drug Abuse Patient Records regulations: The Federal rules restrict any use of the information to criminally investigate or prosecute any alcohol or drug abuse patient.[facility] HamiltonIn the event this information is protected by the Federal Confidentiality of Alcohol and Drug Abuse Patient Records regulations: The Federal rules restrict any use of the information to criminally investigate or prosecute any alcohol or drug abuse patient.[facility] HamiltonIn the event this information is protected by the Federal Confidentiality of Alcohol and Drug Abuse Patient Records regulations: The Federal rules restrict any use of the information to criminally investigate or prosecute any alcohol or drug abuse patient.[facility] HamiltonIn the event this information is protected by the Federal Confidentiality of Alcohol and Drug Abuse Patient Records regulations: The Federal rules restrict any use of the information to criminally investigate or prosecute any alcohol or drug abuse patient.[facility] HamiltonIn the event this information is protected by the Federal Confidentiality of Alcohol and Drug Abuse Patient Records regulations: The Federal rules restrict any use of the information to criminally investigate or prosecute any alcohol or drug abuse patient.[facility] HamiltonIn the event this information is protected by the Federal Confidentiality of Alcohol and Drug Abuse Patient Records regulations: The Federal rules restrict any use of the information to criminally investigate or prosecute any alcohol or drug abuse patient.[facility] HamiltonIn the event this information is protected by the Federal Confidentiality of Alcohol and Drug Abuse Patient Records regulations: The Federal rules restrict any use of the information to criminally investigate or prosecute any alcohol or drug abuse patient.[facility] HamiltonIn the event this information is protected by the Federal Confidentiality of Alcohol and Drug Abuse Patient Records regulations: The Federal rules restrict any use of the information to criminally investigate or prosecute any alcohol or drug abuse patient.[facility] HamiltonIn the event this information is protected by the Federal Confidentiality of Alcohol and Drug Abuse Patient Records regulations: The Federal rules restrict any use of the information to criminally investigate or prosecute any alcohol or drug abuse patient.[facility] HamiltonIn the event this information is protected by the Federal Confidentiality of Alcohol and Drug Abuse Patient Records regulations: The Federal rules restrict any use of the information to criminally investigate or prosecute any alcohol or drug abuse patient.[facility] HamiltonIn the event this information is protected by the Federal Confidentiality of Alcohol and Drug Abuse Patient Records regulations: The Federal rules restrict any use of the information to criminally investigate or prosecute any alcohol or drug abuse patient.[facility] HamiltonIn the event this information is protected by the Federal Confidentiality of Alcohol and Drug Abuse Patient Records regulations: The Federal rules restrict any use of the information to criminally investigate or prosecute any alcohol or drug abuse patient.[facility] HamiltonIn the event this information is protected by the Federal Confidentiality of Alcohol and Drug Abuse Patient Records regulations: The Federal rules restrict any use of the information to criminally investigate or prosecute any alcohol or drug abuse patient.[facility] HamiltonIn the event this information is protected by the Federal Confidentiality of Alcohol and Drug Abuse Patient Records regulations: The Federal rules restrict any use of the information to criminally investigate or prosecute any alcohol or drug abuse patient.[facility] HamiltonIn the event this information is protected by the Federal Confidentiality of Alcohol and Drug Abuse Patient Records regulations: The Federal rules restrict any use of the information to criminally investigate or prosecute any alcohol or drug abuse patient.[facility] HamiltonIn the event this information is protected by the Federal Confidentiality of Alcohol and Drug Abuse Patient Records regulations: The Federal rules restrict any use of the information to criminally investigate or prosecute any alcohol or drug abuse patient.[facility] HamiltonIn the event this information is protected by the Federal Confidentiality of Alcohol and Drug Abuse Patient Records regulations: The Federal rules restrict any use of the information to criminally investigate or prosecute any alcohol or drug abuse patient.[facility] HamiltonIn the event this information is protected by the Federal Confidentiality of Alcohol and Drug Abuse Patient Records regulations: The Federal rules restrict any use of the information to criminally investigate or prosecute any alcohol or drug abuse patient.[facility] HamiltonIn the event this information is protected by the Federal Confidentiality of Alcohol and Drug Abuse Patient Records regulations: The Federal rules restrict any use of the information to criminally investigate or prosecute any alcohol or drug abuse patient.[facility] HamiltonIn the event this information is protected by the Federal Confidentiality of Alcohol and Drug Abuse Patient Records regulations: The Federal rules restrict any use of the information to criminally investigate or prosecute any alcohol or drug abuse patient.[facility] HamiltonIn the event this information is protected by the Federal Confidentiality of Alcohol and Drug Abuse Patient Records regulations: The Federal rules restrict any use of the information to criminally investigate or prosecute any alcohol or drug abuse patient.[facility] HamiltonIn the event this information is protected by the Federal Confidentiality of Alcohol and Drug Abuse Patient Records regulations: The Federal rules restrict any use of the information to criminally investigate or prosecute any alcohol or drug abuse patient.[facility] HamiltonIn the event this information is protected by the Federal Confidentiality of Alcohol and Drug Abuse Patient Records regulations: The Federal rules restrict any use of the information to criminally investigate or prosecute any alcohol or drug abuse patient.[facility] HamiltonIn the event this information is protected by the Federal Confidentiality of Alcohol and Drug Abuse Patient Records regulations: The Federal rules restrict any use of the information to criminally investigate or prosecute any alcohol or drug abuse patient.[facility] HamiltonIn the event this information is protected by the Federal Confidentiality of Alcohol and Drug Abuse Patient Records regulations: The Federal rules restrict any use of the information to criminally investigate or prosecute any alcohol or drug abuse patient.[facility] HamiltonIn the event this information is protected by the Federal Confidentiality of Alcohol and Drug Abuse Patient Records regulations: The Federal rules restrict any use of the information to criminally investigate or prosecute any alcohol or drug abuse patient.[facility] HamiltonIn the event this information is protected by the Federal Confidentiality of Alcohol and Drug Abuse Patient Records regulations: The Federal rules restrict any use of the information to criminally investigate or prosecute any alcohol or drug abuse patient.[facility] HamiltonIn the event this information is protected by the Federal Confidentiality of Alcohol and Drug Abuse Patient Records regulations: The Federal rules restrict any use of the information to criminally investigate or prosecute any alcohol or drug abuse patient.[facility] HamiltonIn the event this information is protected by the Federal Confidentiality of Alcohol and Drug Abuse Patient Records regulations: The Federal rules restrict any use of the information to criminally investigate or prosecute any alcohol or drug abuse patient.[facility] HamiltonIn the event this information is protected by the Federal Confidentiality of Alcohol and Drug Abuse Patient Records regulations: The Federal rules restrict any use of the information to criminally investigate or prosecute any alcohol or drug abuse patient.[facility] HamiltonIn the event this information is protected by the Federal Confidentiality of Alcohol and Drug Abuse Patient Records regulations: The Federal rules restrict any use of the information to criminally investigate or prosecute any alcohol or drug abuse patient.[facility] HamiltonIn the event this information is protected by the Federal Confidentiality of Alcohol and Drug Abuse Patient Records regulations: The Federal rules restrict any use of the information to criminally investigate or prosecute any alcohol or drug abuse patient.[facility] HamiltonIn the event this information is protected by the Federal Confidentiality of Alcohol and Drug Abuse Patient Records regulations: The Federal rules restrict any use of the information to criminally investigate or prosecute any alcohol or drug abuse patient.[facility] HamiltonIn the event this information is protected by the Federal Confidentiality of Alcohol and Drug Abuse Patient Records regulations: The Federal rules restrict any use of the information to criminally investigate or prosecute any alcohol or drug abuse patient.[facility] HamiltonIn the event this information is protected by the Federal Confidentiality of Alcohol and Drug Abuse Patient Records regulations: The Federal rules restrict any use of the information to criminally investigate or prosecute any alcohol or drug abuse patient.[facility] HamiltonIn the event this information is protected by the Federal Confidentiality of Alcohol and Drug Abuse Patient Records regulations: The Federal rules restrict any use of the information to criminally investigate or prosecute any alcohol or drug abuse patient.[facility] HamiltonIn the event this information is protected by the Federal Confidentiality of Alcohol and Drug Abuse Patient Records regulations: The Federal rules restrict any use of the information to criminally investigate or prosecute any alcohol or drug abuse patient.[facility] HamiltonIn the event this information is protected by the Federal Confidentiality of Alcohol and Drug Abuse Patient Records regulations: The Federal rules restrict any use of the information to criminally investigate or prosecute any alcohol or drug abuse patient.[facility] HamiltonIn the event this information is protected by the Federal Confidentiality of Alcohol and Drug Abuse Patient Records regulations: The Federal rules restrict any use of the information to criminally investigate or prosecute any alcohol or drug abuse patient.[facility] HamiltonIn the event this information is protected by the Federal Confidentiality of Alcohol and Drug Abuse Patient Records regulations: The Federal rules restrict any use of the information to criminally investigate or prosecute any alcohol or drug abuse patient.[facility] HamiltonIn the event this information is protected by the Federal Confidentiality of Alcohol and Drug Abuse Patient Records regulations: The Federal rules restrict any use of the information to criminally investigate or prosecute any alcohol or drug abuse patient.[facility] HamiltonIn the event this information is protected by the Federal Confidentiality of Alcohol and Drug Abuse Patient Records regulations: The Federal rules restrict any use of the information to criminally investigate or prosecute any alcohol or drug abuse patient.[facility] HamiltonIn the event this information is protected by the Federal Confidentiality of Alcohol and Drug Abuse Patient Records regulations: The Federal rules restrict any use of the information to criminally investigate or prosecute any alcohol or drug abuse patient.[facility] HamiltonIn the event this information is protected by the Federal Confidentiality of Alcohol and Drug Abuse Patient Records regulations: The Federal rules restrict any use of the information to criminally investigate or prosecute any alcohol or drug abuse patient.[facility] HamiltonIn the event this information is protected by the Federal Confidentiality of Alcohol and Drug Abuse Patient Records regulations: The Federal rules restrict any use of the information to criminally investigate or prosecute any alcohol or drug abuse patient.[facility] HamiltonIn the event this information is protected by the Federal Confidentiality of Alcohol and Drug Abuse Patient Records regulations: The Federal rules restrict any use of the information to criminally investigate or prosecute any alcohol or drug abuse patient.[facility] HamiltonIn the event this information is protected by the Federal Confidentiality of Alcohol and Drug Abuse Patient Records regulations: The Federal rules restrict any use of the information to criminally investigate or prosecute any alcohol or drug abuse patient.[facility] HamiltonIn the event this information is protected by the Federal Confidentiality of Alcohol and Drug Abuse Patient Records regulations: The Federal rules restrict any use of the information to criminally investigate or prosecute any alcohol or drug abuse patient.[facility] HamiltonIn the event this information is protected by the Federal Confidentiality of Alcohol and Drug Abuse Patient Records regulations: The Federal rules restrict any use of the information to criminally investigate or prosecute any alcohol or drug abuse patient.[facility] HamiltonIn the event this information is protected by the Federal Confidentiality of Alcohol and Drug Abuse Patient Records regulations: The Federal rules restrict any use of the information to criminally investigate or prosecute any alcohol or drug abuse patient.[facility] HamiltonIn the event this information is protected by the Federal Confidentiality of Alcohol and Drug Abuse Patient Records regulations: The Federal rules restrict any use of the information to criminally investigate or prosecute any alcohol or drug abuse patient.[facility] HamiltonIn the event this information is protected by the Federal Confidentiality of Alcohol and Drug Abuse Patient Records regulations: The Federal rules restrict any use of the information to criminally investigate or prosecute any alcohol or drug abuse patient.[facility] HamiltonIn the event this information is protected by the Federal Confidentiality of Alcohol and Drug Abuse Patient Records regulations: The Federal rules restrict any use of the information to criminally investigate or prosecute any alcohol or drug abuse patient.[facility] Care Teams (unrecognized sec tion and content) Interlocker Maintainer Relationship Specialty Start Date End Date Jose G Harrington PA-C [address] [place] [address] PCP - General Family Practice 01/27/17 Lamonte Toney MD Home Care Physician Orthopedics 10/17/14 Francis De La O MD Referring Internal Medicine 10/17/14 Interlocker Maintainer Relationship Specialty Start Date End Date Jose G Harrington PA-C [address] [place] [address] PCP - General Family Practice 01/27/17 Lamonte Toney MD Home Care Physician Orthopedics 10/17/14 Francis De La O MD Referring Internal Medicine 10/17/14 Interlocker Maintainer Relationship Specialty Start Date End Date Jose G Harrington PA-C [address] [place] [address] PCP - General Family Practice 01/27/17 Lamonte Toney MD Home Care Physician Orthopedics 10/17/14 Francis De La O MD Referring Internal Medicine 10/17/14 Interlocker Maintainer Relationship Specialty Start Date End Date Jose G Harrington PA-C [address] [place] [address] PCP - General Family Practice 01/27/17 Lamonte Toney MD Home Care Physician Orthopedics 10/17/14 Francis De La O MD Referring Internal Medicine 10/17/14 Interlocker Maintainer Relationship Specialty Start Date End Date Jose G Harrington PA-C [address] [place] [address] PCP - General Family Medicine 01/27/17 Lamotne Toney MD Home Care Provider Orthopedics 10/17/14 Francis De La O MD Referring Internal Medicine 10/17/14 Interlocker Maintainer Relationship Specialty Start Date End Date Jose G Harrington PA-C [address] [place] [address] PCP - General Family Medicine 01/27/17 Lamonte Toney MD Home Care Provider Orthopedics 10/17/14 Francis De La O MD Referring Internal Medicine 10/17/14 Interlocker Maintainer Relationship Specialty Start Date End Date Jose G Harrington PA-C [address] [place] [address] PCP - General Family Medicine 01/27/17 Lamonte Toney MD Home Care Provider Orthopedics 10/17/14 Francis De La O MD Referring Internal Medicine 10/17/14 Interlocker Maintainer Relationship Specialty Start Date End Date Jose G Harrington PA-C [address] [place] [address] PCP - General Family Medicine 01/27/17 Lamonte Toney MD Home Care Provider Orthopedics 10/17/14 Francis De La O MD Referring Internal Medicine 10/17/14 Interlocker Maintainer Relationship Specialty Start Date End Date Jose G Harrington PA-C [address] [place] [address] PCP - General Family Medicine 01/27/17 Lamonte Toney MD Home Care Provider Orthopedics 10/17/14 Francis De La O MD Referring Internal Medicine 10/17/14 Interlocker Maintainer Relationship Specialty Start Date End Date Jose G Harrington PA-C [address] [place], [place] [address] PCP - General Family Medicine 01/27/17 Lamonte Toney MD Home Care Provider Orthopedics 10/17/14 Francis De La O MD Referring Internal Medicine 10/17/14 Interlocker Maintainer Relationship Specialty Start Date End Date Jose G Harrington PA-C [address] [place] [address] PCP - General Family Medicine 01/27/17 Lamonte Toney MD Home Care Provider Orthopedics 10/17/14 Francis De La O MD Referring Internal Medicine 10/17/14 Interlocker Maintainer Relationship Specialty Start Date End Date Jose G Harrington PA-C [address] [place] [address] PCP - General Family Medicine 01/27/17 Lamonte Toney MD Home Care Provider Orthopedics 10/17/14 Francis De La O MD Referring Internal Medicine 10/17/14 Interlocker Maintainer Relationship Specialty Start Date End Date Jose G Harrington PA-C [address] [place] [address] PCP - General Family Medicine 01/27/17 Lamonte Toney MD Home Care Provider Orthopedics 10/17/14 Francis De La O MD Referring Internal Medicine 10/17/14 Interlocker Maintainer Relationship Specialty Start Date End Date Jose G Harrington PA-C [address] [place] [address] PCP - General Family Medicine 01/27/17 Lamonte Toney MD Home Care Provider Orthopedics 10/17/14 Francis De La O MD Referring Internal Medicine 10/17/14 Interlocker Maintainer Relationship Specialty Start Date End Date Jose G Harrington PA-C [address] [place] [address] PCP - General Family Medicine 01/27/17 Lamonte Toney MD Home Care Provider Orthopedics 10/17/14 Francis De La O MD Referring Internal Medicine 10/17/14 Interlocker Maintainer Relationship Specialty Start Date End Date Jose G Harrington PA-C [address] [place] [address] PCP - General Family Medicine 01/27/17 Lamonte Toney MD Home Care Provider Orthopedics 10/17/14 Francis De La O MD Referring Internal Medicine 10/17/14 Interlocker Maintainer Relationship Specialty Start Date End Date Jose G Harrington PA-C [address] [place] [address] PCP - General Family Medicine 01/27/17 Lamonte Toney MD Home Care Provider Orthopedics 10/17/14 Francis De La O MD Referring Internal Medicine 10/17/14 Interlocker Maintainer Relationship Specialty Start Date End Date Jose G Harrington PA-C [address] [place] [address] PCP - General Family Medicine 01/27/17 Lamonte Toney MD Home Care Provider Orthopedics 10/17/14 Francis De La O MD Referring Internal Medicine 10/17/14 Interlocker Maintainer Relationship Specialty Start Date End Date Jose G Harrington PA-C [address] [place] [address] PCP - General Family Medicine 01/27/17 Lamonte Toney MD Home Care Provider Orthopedics 10/17/14 Francis De La O MD Referring Internal Medicine 10/17/14 Interlocker Maintainer Relationship Specialty Start Date End Date Jose G Harrington PA-C [address] [place] [address] PCP - General Family Medicine 01/27/17 Lamonte Toney MD Home Care Provider Orthopedics 10/17/14 Francis De La O MD Referring Internal Medicine 10/17/14 Interlocker Maintainer Relationship Specialty Start Date End Date Jose G Harrington PA-C [address] [place] [address] PCP - General Family Medicine 01/27/17 Lamonte Toney MD Home Care Provider Orthopedics 10/17/14 Francis De La O MD Referring Internal Medicine 10/17/14 Interlocker Maintainer Relationship Specialty Start Date End Date Jose G Harrington PA-C [address] [place] [address] PCP - General Family Medicine 01/27/17 Lamonte Toney MD Home Care Provider Orthopedics 10/17/14 Francis De La O MD Referring Internal Medicine 10/17/14 Interlocker Maintainer Relationship Specialty Start Date End Date Jose G Harrington PA-C [address] [place] [address] PCP - General Family Medicine 01/27/17 Lamonte Toney MD Home Care Provider Orthopedics 10/17/14 Francis De La O MD Referring Internal Medicine 10/17/14 Interlocker Maintainer Relationship Specialty Start Date End Date Jose G Harrington PA-C [address] [place] [address] PCP - General Family Medicine 01/27/17 Lamonte Toney MD Home Care Provider Orthopedics 10/17/14 Francis De La O MD Referring Internal Medicine 10/17/14 Interlocker Maintainer Relationship Specialty Start Date End Date Jose G Harrington PA-C [address] [place] [address] PCP - General Family Medicine 01/27/17 Lamonte Toney MD Home Care Provider Orthopedics 10/17/14 Francis De La O MD Referring Internal Medicine 10/17/14 Interlocker Maintainer Relationship Specialty Start Date End Date Jose G Harrington PA-C [address] [place] [address] PCP - General Family Medicine 01/27/17 Lamonte Toney MD Home Care Provider Orthopedics 10/17/14 Francis De La O MD Referring Internal Medicine 10/17/14 Interlocker Maintainer Relationship Specialty Start Date End Date Jose G Harrington PA-C [address] [place] [address] PCP - General Family Medicine 01/27/17 Lamonte Toney MD Home Care Provider Orthopedics 10/17/14 Francis De La O MD Referring Internal Medicine 10/17/14 Interlocker Maintainer Relationship Specialty Start Date End Date Tasha Deutsch COMMUNITY RELATIONS OFFICER.AVIATION ELECTRONIC WARFARE OPERATOR [address] [place] [address] PCP - General Family Medicine 04/05/24 Lamonte Toney MD Home Care Provider Orthopedics 10/17/14 Francis De La O MD Referring Internal Medicine 10/17/14 Breann Schmitz APRN.AVIATION ELECTRONIC WARFARE OPERATOR [address] [place] [address] Sports Journalist Family Medicine 03/19/24 Tasha Deutsch COMMUNITY RELATIONS OFFICER.AVIATION ELECTRONIC WARFARE OPERATOR [address] [place] [address] Sports Journalist Family [facility] 03/19/24 Interlocker Maintainer Relationship Specialty Start Date End Date Tasha Deutsch COMMUNITY RELATIONS OFFICER.AVIATION ELECTRONIC WARFARE OPERATOR [address] [place] [address] PCP - General Family Medicine 04/05/24 Lamonte Toney MD Home Care Provider Orthopedics 10/17/14 Francis De La O MD Referring Internal Medicine 10/17/14 Breann Schmitz, COMMUNITY RELATIONS OFFICER.AVIATION ELECTRONIC WARFARE OPERATOR [address] [place] [address] Sports Journalist [facility] 03/19/24 Tasha Deutsch COMMUNITY RELATIONS OFFICER.AVIATION ELECTRONIC WARFARE OPERATOR [address] [place] [address] [facility] Interlocker Maintainer Relationship Specialty Start Date End Date Tasha Deutsch, COMMUNITY RELATIONS OFFICER.AVIATION ELECTRONIC WARFARE OPERATOR [address] [place] [address] PCP - General Family Medicine 04/05/24 Lamonte Toney MD Home Care Provider Orthopedics 10/17/14 Francis De La O MD Referring Internal Medicine 10/17/14 Breann Schmitz, COMMUNITY RELATIONS OFFICER.AVIATION ELECTRONIC WARFARE OPERATOR [address] [place] [address] Sports Journalist Family Medicine 03/19/24 Tasha Deutsch, COMMUNITY RELATIONS OFFICER.AVIATION ELECTRONIC WARFARE OPERATOR [address] [place] [address] Sports Journalist Family Medicine 03/19/24 Interlocker Maintainer Relationship Specialty Start Date End Date Tasha Deutsch, COMMUNITY RELATIONS OFFICER.AVIATION ELECTRONIC WARFARE OPERATOR [address] [place] [address] PCP - General Family Medicine 04/05/24 Lamonte Toney MD Home Care Provider Orthopedics 10/17/14 Francis De La O MD Referring Internal Medicine 10/17/14 Breann Schmitz, COMMUNITY RELATIONS OFFICER.AVIATION ELECTRONIC WARFARE OPERATOR [address] [place] [address] Sports Journalist Family [facility] 03/19/24 Tasha Deutsch, COMMUNITY RELATIONS OFFICER.AVIATION ELECTRONIC WARFARE OPERATOR [address] [place] [address] Sports Journalist Family [facility] 03/19/24 Interlocker Maintainer Relationship Specialty Start Date End Date Tasha Deutsch, COMMUNITY RELATIONS OFFICER.AVIATION ELECTRONIC WARFARE OPERATOR [address] [place] [address] PCP - General Family Medicine 04/05/24 Lamonte Toney MD Home Care Provider Orthopedics 10/17/14 Francis De La O MD Referring Internal Medicine 10/17/14 Breann Schmitz, COMMUNITY RELATIONS OFFICER.AVIATION ELECTRONIC WARFARE OPERATOR [address] [place], [place] [address] [facility] 03/19/24 Tasha Deutsch COMMUNITY RELATIONS OFFICER.AVIATION ELECTRONIC WARFARE OPERATOR [address] [place] [place] [address] [facility] 03/19/24 Team Status: Active Member Role Status Dates Tasha Deutsch , OUTREACH COORDINATOR Primary Care Provider Active Team Status: Inactive Member Role Status Dates Dr. Ricki Reyes MD Emergency Provider Active S tart: August 16, 2024 End: August 16, 2024 Tasha Deutsch , OUTREACH COORDINATOR Primary Care Provider Active Start: August 16, 2024 End: August 16, 2024 Team Status: Active Member Role Status Dates Tasha Deutsch , OUTREACH COORDINATOR Primary Care Provider Active Start: August 18, 2024 Dr. Fawad Cordon DO Emergency Provider Active Start: August 18, 2024 Dr. Mara Mar , Admit Provider Active Start : August 18, 2024 Dr. Mara Mar DO Attending Provider Active S tart: August 18, 2024 Team Status: Inactive Member Role Status Dates Dr. Ricki Reyes MD Attending Provider Active S tart: August 16, 2024 End: August 16, 2024 Dr. Ricki Reyes MD Emergency Provider Active S tart: August 16, 2024 End: August 16, 2024 Tasha Suppsamantha , OUTREACH COORDINATOR Primary Care Provider Active Start: August 16, 2024 End: August 16, 2024 Team Status: Inactive Member Role Status Dates Tasha Deutsch , OUTREACH COORDINATOR Primary Care Provider Active Start: August 18, 2024 End: August 22, 2024 Dr. Fawad Cordon DO Emergency Provider Active Start: August 18, 2024 End: August 22, 2024 Dr. Mara Mar DO Admit Provider Active Start : August 18, 2024 End: August 22, 2024 Dr. Mara Mar DO Attending Provider Active S tart: August 18, 2024 End: August 22, 2024 Harley Nunez MD Other Provider Active Start: Amandeep rosario 2024 End: August 22, 2024 Dr. Liu Woody MD Other Provider Active Start: August 18, 2024 End: August 22, 2024 Isa Cruz MD Other Provider Active Start : August 18, 2024 End: August 22, 2024 Dr. Maki López DO Other Provider Active St art: August 18, 2024 End: August 22, 2024 Dr. Shlaom Ledesma MD Other Provider Active Start: August 18, 2024 End: August 22, 2024 Dr. Jeronimo Trujillo MD Other Provider Active Sta rt: August 18, 2024 End: August 22, 2024 Dr. Maureen Townsend MD Other Provider Active Start : August 18, 2024 End: August 22, 2024 Dr. Efraín Alexis MD Other Provider Active Start: August 18, 2024 End: August 22, 2024 Dr. Lc Salazar MD Other Provider Active Start : August 18, 2024 End: August 22, 2024 Dr. Pravin Lehman MD Other Provider Active Sta rt: August 18, 2024 End: August 22, 2024 Tyra Bains MD Other Provider Active Start : August 18, 2024 End: August 22, 2024 Dr. Ousmane Cantu MD Other Provider Active St art: August 18, 2024 End: August 22, 2024 Dr. Maggie Collins MD Other Provider Active Start : August 18, 2024 End: August 22, 2024 Dr. Bernabe Foreman MD Other Provider Active Sta rt: August 18, 2024 End: August 22, 2024 Dr. Zoya Sher MD Other Provider Active Start: August 18, 2024 End: August 22, 2024 Dr. Addy Nuno MD Other Provider Active St art: August 18, 2024 End: August 22, 2024 Dr. Melany Henderson MD Other Provider Active Star t: August 18, 2024 End: August 22, 2024 Dr. Orlin Ham MD Other Provider Active St art: August 18, 2024 End: August 22, 2024 Dr. Mayra Mar MD Other Provider Active Start: August 18, 2024 End: August 22, 2024 Luc Machuca MD Other Provider Active Start: August 18, 2024 End: August 22, 2024 Luc Machuca MD Other Provider Active Start: August 18, 2024 Team Status: Active Member Role Status Dates GARFIELD Maldonado Primary Care Provider Active Start: August 19, 2024 Dr. Cricket Leyva MD Attending Provider Active Start: August 19, 2024 Team Status: Active Member Role Status Dates Tasha Deutsch , OUTREACH COORDINATOR Primary Care Provider Active Start: August 19, 2024 Dr. Fawad Cordon , Emergency Provider Active Start: August 19, 2024 Dr. Mara Mar , DO Admit Provider Active Start : August 19, 2024 Dr. Mara Mar DO Attending Provider Active S tart: August 19, 2024 Dr. Mara Mar , Other Provider Active Start : August 19, 2024 Harley Nunez MD Other Provider Active Start: [place] 2024 Dr. Liu Woody MD Other Provider Active Start: August 19, 2024 Isa Cruz MD Other Provider Active Start : August 19, 2024 Dr. Maki López DO Other Provider Active St art: August 19, 2024 Dr. Shalom Ledesma MD Other Provider Active Start: August 19, 2024 Dr. Jeronimo Trujillo MD Other Provider Active Sta rt: August 19, 2024 Dr. Maureen Townsend MD Other Provider Active Start : August 19, 2024 Dr. Efraín Alexis MD Other Provider Active Start: August 19, 2024 Dr. Lc Salazar MD Other Provider Active Start : August 19, 2024 Dr. Pravin Lehman MD Other Provider Active Sta rt: August 19, 2024 Tyra Bains MD Other Provider Active Start : August 19, 2024 Dr. Ousmane Cantu MD Other Provider Active St art: August 19, 2024 Dr. Maggie Collins MD Other Provider Active Start : August 19, 2024 Dr. Bernabe Foreman MD Other Provider Active Sta rt: August 19, 2024 Dr. Zoya Sher MD Other Provider Active Start: August 19, 2024 Dr. Addy Nuno MD Other Provider Active St art: August 19, 2024 Dr. Melany Henderson MD Other Provider Active Star t: August 19, 2024 Dr. Orlin Ham MD Other Provider Active St art: August 19, 2024 Dr. Mayra Mar MD Other Provider Active Start: August 19, 2024 Luc Machuca MD Other Provider Active Start: August 19, 2024 Team Status: Active Member Role Status Dates Tasha Deutsch , OUTREACH COORDINATOR Primary Care Provider Active Start: August 20, 2024 Dr. Fawad Cordon , DO Emergency Provider Active Start: August 20, 2024 Dr. Mara Mar , DO Admit Provider Active Start : August 20, 2024 Dr. Mara Mar , DO Attending Provider Active S tart: August 20, 2024 Dr. Mara Mar , DO Other Provider Active Start : August 20, 2024 Harley Nunez MD Other Provider Active Start: 2024 Dr. Liu Woody MD Other Provider Active Start: August 20, 2024 Isa Cruz MD Other Provider Active Start : August 20, 2024 Dr. Maki López , Other Provider Active St art: August 20, 2024 Dr. Shalom Ledesma MD Other Provider Active Start: August 20, 2024 Dr. Jeronimo Trujillo MD Other Provider Active Sta rt: August 20, 2024 Dr. Maureen Townsend MD Other Provider Active Start : August 20, 2024 Dr. Efraín Alexis MD Other Provider Active Start: August 20, 2024 Dr. Lc Salazar MD Other Provider Active Start : August 20, 2024 Dr. Pravin Lehman MD Other Provider Active Sta rt: August 20, 2024 Tyra Bains MD Other Provider Active Start : August 20, 2024 Dr. Ousmane Cantu MD Other Provider Active St art: August 20, 2024 Dr. Maggie Collins MD Other Provider Active Start : August 20, 2024 Dr. Bernabe Foreman MD Other Provider Active Sta rt: August 20, 2024 Dr. Zoya Sher MD Other Provider Active Start: August 20, 2024 Dr. Addy Nuno MD Other Provider Active St art: August 20, 2024 Dr. Melany Henderson MD Other Provider Active Star t: August 20, 2024 Dr. Orlin Ham MD Other Provider Active St art: August 20, 2024 Dr. Mayra Mar MD Other Provider Active Start: August 20, 2024 Luc Machuca MD Other Provider Active Start: August 20, 2024 Team Status: Active Member Role Status Dates Tasha Deutsch , OUTREACH COORDINATOR Primary Care Provider Active Start: August 21, 2024 Dr. Fawad Cordon , Emergency Provider Active Start: August 21, 2024 Dr. Mara Mar DO Admit Provider Active Start : August 21, 2024 Dr. Mara Mar DO Attending Provider Active S tart: August 21, 2024 Dr. Mara Mar DO Other Provider Active Start : August 21, 2024 Harley Nunez MD Other Provider Active Start: [place] 2024 Dr. Liu Woody MD Other Provider Active Start: August 21, 2024 Isa Cruz MD Other Provider Active Start : August 21, 2024 Dr. Maki López DO Other Provider Active St art: August 21, 2024 Dr. Shalom Ledesma MD Other Provider Active Start: August 21, 2024 Dr. Jeronimo Trujillo MD Other Provider Active Sta rt: August 21, 2024 Dr. Maureen Townsend MD Other Provider Active Start : August 21, 2024 Dr. Efraín Alxeis MD Other Provider Active Start: August 21, 2024 Dr. Lc Salazar MD Other Provider Active Start : August 21, 2024 Dr. Pravin Lehman MD Other Provider Active Sta rt: August 21, 2024 Tyra Bains MD Other Provider Active Start : August 21, 2024 Dr. Ousmane Cantu MD Other Provider Active St art: August 21, 2024 Dr. Maggie Collins MD Other Provider Active Start : August 21, 2024 Dr. Bernabe Foreman MD Other Provider Active Sta rt: August 21, 2024 Dr. Zoya Sher MD Other Provider Active Start: August 21, 2024 Dr. Addy Nuno MD Other Provider Active St art: August 21, 2024 Dr. Melany Henderson MD Other Provider Active Star t: August 21, 2024 Dr. Orlin Ham MD Other Provider Active St art: August 21, 2024 Dr. Mayra Mar MD Other Provider Active Start: August 21, 2024 Luc Machuca MD Other Provider Active Start: August 21, 2024 Team Status: Active Member Role Status Dates Tasha Deutsch , GARFIELD Primary Care Provider Active Start: August 22, 2024 Dr. Fawad Cordon , Emergency Provider Active Start: August 22, 2024 Dr. Mara Mar DO Admit Provider Active Start : August 22, 2024 Dr. Mara Mar DO Attending Provider Active S tart: August 22, 2024 Dr. Mara Mar DO Other Provider Active Start : August 22, 2024 Harley Nunez MD Other Provider Active Start: [place]s 2024 Dr. Liu Woody MD Other Provider Active Start: August 22, 2024 Isa Cruz MD Other Provider Active Start : August 22, 2024 Dr. Maki López DO Other Provider Active St art: August 22, 2024 Dr. Shalom Ledesma MD Other Provider Active Start: August 22, 2024 Dr. Jeronimo Trujillo MD Other Provider Active Sta rt: August 22, 2024 Dr. Maureen Townsend MD Other Provider Active Start : August 22, 2024 Dr. Efraín Alexis MD Other Provider Active Start: August 22, 2024 Dr. Lc Salazar MD Other Provider Active Start : August 22, 2024 Dr. Pravin Lehman MD Other Provider Active Sta rt: August 22, 2024 Tyra Bains MD Other Provider Active Start : August 22, 2024 Dr. Ousmane Cantu MD Other Provider Active St art: August 22, 2024 Dr. Maggie Collins MD Other Provider Active Start : August 22, 2024 Dr. Bernabe Foreman MD Other Provider Active Sta rt: August 22, 2024 Dr. Zoya Sher MD Other Provider Active Start: August 22, 2024 Dr. Addy Nuno MD Other Provider Active St art: August 22, 2024 Dr. Melany Henderson MD Other Provider Active Star t: August 22, 2024 Dr. Orlin Ham MD Other Provider Active St art: August 22, 2024 Dr. Mayra Mar MD Other Provider Active Start: August 22, 2024 Luc Machuca MD Other Provider Active Start: August 22, 2024 Interlocker Maintainer Relationship Specialty Start Date End Date Tasha Deutsch COMMUNITY RELATIONS OFFICER.AVIATION ELECTRONIC WARFARE OPERATOR [address] [place] [address] PCP - General Family Medicine 04/05/24 Lamonte Toney MD Home Care Provider Orthopedics 10/17/14 Francis De La O MD Referring Internal Medicine 10/17/14 Interlocker Maintainer Relationship Specialty Start Date End Date Tasha Deutsch COMMUNITY RELATIONS OFFICER.AVIATION ELECTRONIC WARFARE OPERATOR [address] [place] [address] PCP - General Family Medicine 04/05/24 Lamonte Toney MD Home Care Provider Orthopedics 10/17/14 Francis De La O MD Referring Internal Medicine 10/17/14 Interlocker Maintainer Relationship Specialty Start Date End Date Tasha Deutsch COMMUNITY RELATIONS OFFICER.AVIATION ELECTRONIC WARFARE OPERATOR [address] [place] [address] PCP - General Family Medicine 04/05/24 Lamonte Toney MD Home Care Provider Orthopedics 10/17/14 Francis De La O MD Referring Internal Medicine 10/17/14 Interlocker Maintainer Relationship Specialty Start Date End Date Tasha Deutsch, COMMUNITY RELATIONS OFFICER.AVIATION ELECTRONIC WARFARE OPERATOR [address] [facility], [place] [id number] PCP - General Family Medicine 04/05/24 Behzad Dorado [address] [place] [id number] Referring Internal Medicine 09/17/24 Tasha Deutsch, COMMUNITY RELATIONS OFFICER.AVIATION ELECTRONIC WARFARE OPERATOR [address] [facility], [place] [id number] Home Care Provider Family Medicine 09/17/24 Interlocker Maintainer Relationship Specialty Start Date End Date Tasha Deutsch, COMMUNITY RELATIONS OFFICER.AVIATION ELECTRONIC WARFARE OPERATOR [address] [facility], [place] [address] PCP - General Family Medicine 04/05/24 Behzad Dorado [address] [place] [place] [address] Referring Internal Medicine 09/17/24 Tasha Deutsch, COMMUNITY RELATIONS OFFICER.AVIATION ELECTRONIC WARFARE OPERATOR [address] [place] [address] Home Care Provider Family Medicine 09/17/24 Team Status: Inactive Member Role Status Dates GARFIELD Maldonado Primary Care Provider Active Start: August 22, 2024 End: September 19, 2024 Dr. Behzad Dorado , DO Admit Provider Active Start: August 22, 2024 End: September 19, 2024 Dr. Behzad Dorado , DO Attending Provider Act basilio Start: August 22, 2024 End: September 19, 2024 Team Status: Active Member Role Status Dates Tasha Deutsch OUTREACH COORDINATOR Primary Care Provider Active Start: August 23, 2024 Dr. Behzad Dorado DO Admit Provider Active Start: August 23, 2024 Dr. Behzad Dorado , DO Attending Provider Act basilio Start: August 23, 2024 Dr. Behzad Dorado , DO Other Provider Active Start: August 23, 2024 Team Status: Active Member Role Status Dates Tasha Deutsch , OUTREACH COORDINATOR Primary Care Provider Active Start: August 26, 2024 Dr. Behzad Dorado , DO Admit Provider Active Start: August 26, 2024 Dr. Behzad Dorado , DO Attending Provider Act basilio Start: August 26, 2024 Dr. Behzad Dorado , DO Other Provider Active Start: August 26, 2024 Team Status: Active Member Role Status Dates Tasha Deutsch , OUTREACH COORDINATOR Primary Care Provider Active Start: August 30, 2024 Dr. Behzad Dorado , DO Admit Provider Active Start: August 30, 2024 Dr. Bhezad Dorado , DO Attending Provider Act basilio Start: August 30, 2024 Dr. Behzad Dorado , DO Other Provider Active Start: August 30, 2024 Team Status: Active Member Role Status Dates Tasha Deutsch , OUTREACH COORDINATOR Primary Care Provider Active Start: August 31, 2024 Dr. Behzad Dorado , DO Admit Provider Active Start: August 31, 2024 Dr. Behzad Dorado , DO Attending Provider Act basilio Start: August 31, 2024 Dr. Behzad Dorado , DO Other Provider Active Start: August 31, 2024 Team Status: Active Member Role Status Dates Tasha Deutsch , OUTREACH COORDINATOR Primary Care Provider Active Start: September 02, 2024 Dr. Behzad Dorado , DO Admit Provider Active Start: September 02, 2024 Dr. Behzad Dorado , DO Attending Provider Act basilio Start: September 02, 2024 Dr. Behzad Dorado , DO Other Provider Active Start: September 02, 2024 Team Status: Active Member Role Status Dates Tasha Deutsch , OUTREACH COORDINATOR Primary Care Provider Active Start: September 05, 2024 Dr. Behzad Dorado , DO Admit Provider Active Start: September 05, 2024 Dr. Behzad Dorado , DO Attending Provider Act basilio Start: September 05, 2024 Dr. Behzad Dorado , DO Other Provider Active Start: September 05, 2024 Team Status: Active Member Role Status Dates Tasha Deutsch , OUTREACH COORDINATOR Primary Care Provider Active Start: September 07, 2024 Dr. Behzad Dorado , DO Admit Provider Active Start: September 07, 2024 Dr. Behzad Dorado , DO Attending Provider Act basilio Start: September 07, 2024 Dr. Behzad Dorado , DO Other Provider Active Start: September 07, 2024 Team Status: Active Member Role Status Dates Tasha Deutsch , OUTREACH COORDINATOR Primary Care Provider Active Start: September 09, 2024 Dr. Behzad Dorado , DO Admit Provider Active Start: September 09, 2024 Dr. Behzad Dorado , DO Attending Provider Act basilio Start: September 09, 2024 Dr. Behzad Dorado , DO Other Provider Active Start: September 09, 2024 Team Status: Active Member Role Status Dates Tasha Deutsch , OUTREACH COORDINATOR Primary Care Provider Active Start: September 13, 2024 Dr. Behzad Dorado , Admit Provider Active Start: September 13, 2024 Dr. Behzad Dorado , DO Attending Provider Act basilio Start: September 13, 2024 Dr. Behzad Dorado , Other Provider Active Start: September 13, 2024 Team Status: Active Member Role Status Dates Tasha Deutsch , OUTREACH COORDINATOR Primary Care Provider Active Start: September 14, 2024 Dr. Behzad Dorado , Admit Provider Active Start: September 14, 2024 Dr. Behzad Dorado , DO Attending Provider Act basilio Start: September 14, 2024 Dr. Behzad Dorado , Other Provider Active Start: September 14, 2024 Team Status: Active Member Role Status Dates Tasha Deutsch , OUTREACH COORDINATOR Primary Care Provider Active Start: September 16, 2024 Dr. Behzad Dorado , DO Admit Provider Active Start: September 16, 2024 Dr. Behzad Dorado , DO Attending Provider Act basilio Start: September 16, 2024 Dr. Behzad Dorado , DO Other Provider Active Start: September 16, 2024 Interlocker Maintainer Relationship Specialty Start Date End Date Tasha Deutsch APRN.AVIATION ELECTRONIC WARFARE OPERATOR [address] [place] [address] PCP - General Family Medicine 04/05/24 Behzad Dorado [address] [place] [address] Referring Internal Medicine 09/17/24 Tasha Deutsch APRN.AVIATION ELECTRONIC WARFARE OPERATOR [address] [place] [address] Home Care Provider Family Medicine 09/17/24 Mack Brito, JESIKA [address] [place], [place] [id number] Company Laborer Post Acute Care 09/20/24 Interlocker Maintainer Relationship Specialty Start Date End Date Tasha Deutsch COMMUNITY RELATIONS OFFICER.AVIATION ELECTRONIC WARFARE OPERATOR [address] [place] [address] PCP - General Family Medicine 04/05/24 Behzad Dorado [address] [place] [place] [address] Referring Internal Medicine 09/17/24 Tasha Deutsch APRN.AVIATION ELECTRONIC WARFARE OPERATOR [address] [place] [address] Home Care Provider Family Medicine 09/17/24 Mack Brito RN [address] [place], [place] [id number] Company Laborer Post Acute Care 09/20/24 Interlocker Maintainer Relationship Specialty Start Date End Date Tasha Deutsch COMMUNITY RELATIONS OFFICER.AVIATION ELECTRONIC WARFARE OPERATOR [address] [place] [address] PCP - General Family Medicine 04/05/24 Behzad Dorado [address] [facility] [place] [address] Referring Internal Medicine 09/17/24 Tasha Deutsch COMMUNITY RELATIONS OFFICER.AVIATION ELECTRONIC WARFARE OPERATOR [address] [place] [address] Home Care Provider Family Medicine 09/17/24 Mack Brito, JESIKA [address] [place], [place] [id number] Company Laborer Post Acute Care 09/20/24 Interlocker Maintainer Relationship Specialty Start Date End Date Tasha Deutsch COMMUNITY RELATIONS OFFICER.AVIATION ELECTRONIC WARFARE OPERATOR [address] [place] [address] PCP - General Family Medicine 04/05/24 Behzad Dorado [address] [place] [phone] Referring Internal Medicine 09/17/24 Tasha Deutsch COMMUNITY RELATIONS OFFICER.AVIATION ELECTRONIC WARFARE OPERATOR [address] [place] [address] Home Care Provider Family Medicine 09/17/24 Mack Brito RN [address] [place], [place] [id number] Company Laborer Post Acute Care 09/20/24 Interlocker Maintainer Relationship Specialty Start Date End Date Tasha Deutsch COMMUNITY RELATIONS OFFICER.AVIATION ELECTRONIC WARFARE OPERATOR [address] [place] [address] PCP - General Family Medicine 04/05/24 Behzad Dorado [address] [place] [phone] Referring Internal Medicine 09/17/24 Tasha Deutsch COMMUNITY RELATIONS OFFICER.AVIATION ELECTRONIC WARFARE OPERATOR [address] [place] [address] Home Care Provider Family Medicine 09/17/24 Mack Brito, JESIKA [address] [place], [place] [id number] Company Laborer Post Acute Care 09/20/24 Interlocker Maintainer Relationship Specialty Start Date End Date Tasha Deutsch COMMUNITY RELATIONS OFFICER.AVIATION ELECTRONIC WARFARE OPERATOR [address] [place] [address] PCP - General Family Medicine 04/05/24 Behzad Dorado [address] [place] [address] Referring Internal Medicine 09/17/24 Tasha Deutsch COMMUNITY RELATIONS OFFICER.AVIATION ELECTRONIC WARFARE OPERATOR [address] [place] [address] Home Care Provider Family Medicine 09/17/24 Mack Brito, JESIKA [address] [place], [place] [id number] Company Laborer Post Acute Care 09/20/24 Interlocker Maintainer Relationship Specialty Start Date End Date Tasha Deutsch COMMUNITY RELATIONS OFFICER.AVIATION ELECTRONIC WARFARE OPERATOR [address] [place] [address] PCP - General Family Medicine 04/05/24 Behzad Droado [address] [place] [phone] Referring Internal Medicine 09/17/24 Tasha Deutsch COMMUNITY RELATIONS OFFICER.AVIATION ELECTRONIC WARFARE OPERATOR [address] [place] [address] Home Care Provider Family Medicine 09/17/24 Mack Brito, JESIKA [address] [place], [place] [id number] Company Laborer Post Acute Care 09/20/24 Interlocker Maintainer Relationship Specialty Start Date End Date Tasha Deutsch COMMUNITY RELATIONS OFFICER.AVIATION ELECTRONIC WARFARE OPERATOR [address] [place] [address] PCP - General Family Medicine 04/05/24 Behzad Dorado [address] [place] [address] Referring Internal Medicine 09/17/24 Tasha Deutsch, COMMUNITY RELATIONS OFFICER.AVIATION ELECTRONIC WARFARE OPERATOR [address] [place] [address] Home Care Provider Family Medicine 09/17/24 Mack Brito RN [address] [place], [place] [phone] Company Laborer Post Acute Care 09/20/24 Interlocker Maintainer Relationship Specialty Start Date End Date Tasha Deutsch COMMUNITY RELATIONS OFFICER.AVIATION ELECTRONIC WARFARE OPERATOR [address] [place] [address] PCP - General Family Medicine 04/05/24 Behzad Dorado [address] [place] [address] Referring Internal Medicine 09/17/24 Tasha Deutsch, COMMUNITY RELATIONS OFFICER.AVIATION ELECTRONIC WARFARE OPERATOR [address] [place] [address] Home Care Provider Family Medicine 09/17/24 Mack Brito RN [address] [place] [address] Company Laborer Post Acute Care 09/20/24 Interlocker Maintainer Relationship Specialty Start Date End Date Tasha Deutsch, COMMUNITY RELATIONS OFFICER.AVIATION ELECTRONIC WARFARE OPERATOR [address] [place] [address] PCP - General Family Medicine 04/05/24 Behzad Dorado [address] [place] [address] Referring Internal Medicine 09/17/24 Tasha Deutsch, COMMUNITY RELATIONS OFFICER.AVIATION ELECTRONIC WARFARE OPERATOR [address] [place] [address] Home Care Provider Family Medicine 09/17/24 Mack Brito, JESIKA [address] [place] [address] Company Laborer Post Acute Care 09/20/24 Interlocker Maintainer Relationship Specialty Start Date End Date Tasha Deutsch COMMUNITY RELATIONS OFFICER.AVIATION ELECTRONIC WARFARE OPERATOR [address] [place] [address] PCP - General Family Medicine 04/05/24 Behzad Dorado [address] [place] [address] Referring Internal Medicine 09/17/24 Tasha eDutsch COMMUNITY RELATIONS OFFICER.AVIATION ELECTRONIC WARFARE OPERATOR [address] [place] [address] Home Care Provider Family Medicine 09/17/24 Mack Brito RN [address] [place] [address] Company Laborer Post Acute Care 09/20/24 Team Status: Active Member Role Status Dates GARFIELD Maldonado Primary Care Provider Active Start: September 18, 2024 Dr. Behzad Dorado DO Admit Provider Active Start: September 18, 2024 Dr. Behzad Dorado DO Attending Provider Act basilio Start: September 18, 2024 Dr. Behzad Dorado DO Other Provider Active Start: September 18, 2024 Team Status: Inactive Member Role Status Dates GARFIELD Maldonado Primary Care Provider Active Start: October 04, 2024 End: October 04, 2024 GARFIELD Maldonado Referring Provider Active Start: October 04, 2024 End: October 04, 2024 JAVON SerratoC Attending Provider Active S tart: October 04, 2024 End: October 04, 2024 Interlocker Maintainer Relationship Specialty Start Date End Date Tasha Deutsch, COMMUNITY RELATIONS OFFICER.AVIATION ELECTRONIC WARFARE OPERATOR [address] [place] [address] PCP - General Family Medicine 04/05/24 Behzad Dorado [address] [place] [address] Referring Internal Medicine 09/17/24 Tasha Deutsch, COMMUNITY RELATIONS OFFICER.AVIATION ELECTRONIC WARFARE OPERATOR [address] [place] [address] Home Care Provider Family Medicine 09/17/24 Mack Brito, JESIKA [address] [place], [place] [phone] Company Laborer Post Acute Care 09/20/24 Interlocker Maintainer Relationship Specialty Start Date End Date Tasha Deutsch COMMUNITY RELATIONS OFFICER.AVIATION ELECTRONIC WARFARE OPERATOR [address] [place] [address] PCP - General Family Medicine 04/05/24 Behzad Dorado [address] [place] [address] Referring Internal Medicine 09/17/24 Tasha Deutsch, COMMUNITY RELATIONS OFFICER.AVIATION ELECTRONIC WARFARE OPERATOR [address] [place] [address] Home Care Provider Family Medicine 09/17/24 Mack Brito, JESIKA [address] [place], [place] [phone] Company Laborer Post Acute Care 09/20/24 Interlocker Maintainer Relationship Specialty Start Date End Date Tasha Deutsch, COMMUNITY RELATIONS OFFICER.AVIATION ELECTRONIC WARFARE OPERATOR [address] [place] [address] PCP - General Family Medicine 04/05/24 Behzad Dorado [address] [place] [address] Referring Internal Medicine 09/17/24 Tasha Deutsch COMMUNITY RELATIONS OFFICER.AVIATION ELECTRONIC WARFARE OPERATOR [address] [place] [address] Home Care Provider Family Medicine 09/17/24 Mack Brito RN [address] [place], [place] [phone] Company Laborer Post Acute Care 09/20/24 Interlocker Maintainer Relationship Specialty Start Date End Date Tasha Deutsch COMMUNITY RELATIONS OFFICER.AVIATION ELECTRONIC WARFARE OPERATOR [address] [place] [address] PCP - General Family Medicine 04/05/24 Behzad Dorado [address] [place] [address] Referring Internal Medicine 09/17/24 Tasha Deutsch COMMUNITY RELATIONS OFFICER.AVIATION ELECTRONIC WARFARE OPERATOR [address] [place] [address] Home Care Provider Family Medicine 09/17/24 Mack Brito RN [address] [place], [place] [phone] Company Laborer Post Acute Care 09/20/24 Interlocker Maintainer Relationship Specialty Start Date End Date Tasha Deutsch COMMUNITY RELATIONS OFFICER.AVIATION ELECTRONIC WARFARE OPERATOR [address] [place] [address] PCP - General Family Medicine 04/05/24 Behzad Dorado [address] [place] [address] Referring Internal Medicine 09/17/24 Tasha Deutsch COMMUNITY RELATIONS OFFICER.AVIATION ELECTRONIC WARFARE OPERATOR [address] [place] [address] Home Care Provider Family Medicine 09/17/24 Mack Brito, JESIKA [address] [place] [address] Company Laborer Post Acute Care 09/20/24 Interlocker Maintainer Relationship Specialty Start Date End Date Tasha Deutsch APRN.AVIATION ELECTRONIC WARFARE OPERATOR [address] [place], [place] [address] PCP - General Family Medicine 04/05/24 Behzad Dorado [address] [place] [address] Referring Internal Medicine 09/17/24 Tasha Deutsch APRN.AVIATION ELECTRONIC WARFARE OPERATOR [address] [place], [place] [id number] Home Care Provider Family Medicine 09/17/24 Mack Brito, JESIKA [address] [place] [address] Company Laborer Post Acute Care 09/20/24 Team Status: Active Member Role/Relationship Status Dates GARFIELD Maldonado Primary Care Provider Active Team Status: Inactive Member Role/Relationship Status Dates Dr. Ricki Reyes MD Attending Provider Active S tart: August 16, 2024 End: August 16, 2024 Dr. Ricki Reyes MD Emergency Provider Active S tart: August 16, 2024 End: August 16, 2024 GARFIELD Maldonado Primary Care Provider Active Start: August 16, 2024 End: August 16, 2024 Team Status: Inactive Member Role/Relationship Status Dates GARFIELD Maldonado Primary Care Provider Active Start: August 18, 2024 End: August 22, 2024 Dr. Fawad Cordon DO Emergency Provider Active Start: August 18, 2024 End: August 22, 2024 Dr. Mara Mar DO Admit Provider Active Start : August 18, 2024 End: August 22, 2024 Dr. Mara Mar DO Attending Provider Active S tart: August 18, 2024 End: August 22, 2024 Harley Nunez MD Other Provider Active Start: Amandeep 2024 End: August 22, 2024 Dr. Liu Woody MD Other Provider Active Start: August 18, 2024 End: August 22, 2024 Isa Cruz MD Other Provider Active Start : August 18, 2024 End: August 22, 2024 Dr. Maki López DO Other Provider Active St art: August 18, 2024 End: August 22, 2024 Dr. Shalom Ledesma MD Other Provider Active Start: August 18, 2024 End: August 22, 2024 Dr. Jeronimo Trujillo MD Other Provider Active Sta rt: August 18, 2024 End: August 22, 2024 Dr. Maureen Townsend MD Other Provider Active Start : August 18, 2024 End: August 22, 2024 Dr. Efraín Alexis MD Other Provider Active Start: August 18, 2024 End: August 22, 2024 Dr. Lc Salazar MD Other Provider Active Start : August 18, 2024 End: August 22, 2024 Dr. Pravin Lehman MD Other Provider Active Sta rt: August 18, 2024 End: August 22, 2024 Tyra Bains MD Other Provider Active Start : August 18, 2024 End: August 22, 2024 Dr. Ousmane Cantu MD Other Provider Active St art: August 18, 2024 End: August 22, 2024 Dr. Maggie Collins MD Other Provider Active Start : August 18, 2024 End: August 22, 2024 Dr. Bernabe Foreman MD Other Provider Active Sta rt: August 18, 2024 End: August 22, 2024 Dr. Zoya Sher MD Other Provider Active Start: August 18, 2024 End: August 22, 2024 Dr. Addy Nuno MD Other Provider Active St art: August 18, 2024 End: August 22, 2024 Dr. Melany Henderson MD Other Provider Active Star t: August 18, 2024 End: August 22, 2024 Dr. Orlin Ham MD Other Provider Active St art: August 18, 2024 End: August 22, 2024 Dr. Mayra Mar MD Other Provider Active Start: August 18, 2024 End: August 22, 2024 Luc Machuca MD Other Provider Active Start: August 18, 2024 End: August 22, 2024 Luc Machuca MD Other Provider Active Start: August 18, 2024 Team Status: Active Member Role/Relationship Status Dates Tasha Suppsamantha , OUTREACH COORDINATOR Primary Care Provider Active Start: August 19, 2024 Dr. Cricket Leyva MD Attending Provider Active Start: August 19, 2024 Team Status: Active Member Role/Relationship Status Dates Tasha Suppan , OUTREACH COORDINATOR Primary Care Provider Active Start: August 19, 2024 Dr. Fawad Cordon , Emergency Provider Active Start: August 19, 2024 Dr. Mara Mar DO Admit Provider Active Start : August 19, 2024 Dr. Mara Mar DO Attending Provider Active S tart: August 19, 2024 Dr. Mara Mar DO Other Provider Active Start : August 19, 2024 Harley Nunez MD Other Provider Active Start: Ma 2024 Dr. Liu Woody MD Other Provider Active Start: August 19, 2024 Isa Cruz MD Other Provider Active Start : August 19, 2024 Dr. Maki López , Other Provider Active St art: August 19, 2024 Dr. Shalom Ledesma MD Other Provider Active Start: August 19, 2024 Dr. Jeronimo Trujillo MD Other Provider Active Sta rt: August 19, 2024 Dr. Maureen Townsend MD Other Provider Active Start : August 19, 2024 Dr. Efraín Alexis MD Other Provider Active Start: August 19, 2024 Dr. Lc Salazar MD Other Provider Active Start : August 19, 2024 Dr. Pravin Lehman MD Other Provider Active Sta rt: August 19, 2024 Tyra Bains MD Other Provider Active Start : August 19, 2024 Dr. Ousmane Cantu MD Other Provider Active St art: August 19, 2024 Dr. Maggie Collins MD Other Provider Active Start : August 19, 2024 Dr. Bernabe Foreman MD Other Provider Active Sta rt: August 19, 2024 Dr. Zoya Sher MD Other Provider Active Start: August 19, 2024 Dr. Addy Nuno MD Other Provider Active St art: August 19, 2024 Dr. Melany Henderson MD Other Provider Active Star t: August 19, 2024 Dr. Orlin Ham MD Other Provider Active St art: August 19, 2024 Dr. Mayra Mar MD Other Provider Active Start: August 19, 2024 Luc Machuca MD Other Provider Active Start: August 19, 2024 Team Status: Active Member Role/Relationship Status Dates GARFIELD Maldonado Primary Care Provider Active Start: August 20, 2024 Dr. Fawad Cordon , Emergency Provider Active Start: August 20, 2024 Dr. Mara Mar , Admit Provider Active Start : August 20, 2024 Dr. Mara Mar DO Attending Provider Active S tart: August 20, 2024 Dr. Mara Mar DO Other Provider Active Start : August 20, 2024 Harley Nunez MD Other Provider Active Start: [place] 2024 Dr. Liu Woody MD Other Provider Active Start: August 20, 2024 Isa Cruz MD Other Provider Active Start : August 20, 2024 Dr. Maki López DO Other Provider Active St art: August 20, 2024 Dr. Shalom Ledesma MD Other Provider Active Start: August 20, 2024 Dr. Jeronimo Trujillo MD Other Provider Active Sta rt: August 20, 2024 Dr. Maureen Townsend MD Other Provider Active Start : August 20, 2024 Dr. Efraín Alexis MD Other Provider Active Start: August 20, 2024 Dr. Lc Salazar MD Other Provider Active Start : August 20, 2024 Dr. Pravin Lehman MD Other Provider Active Sta rt: August 20, 2024 Tyra Bains MD Other Provider Active Start : August 20, 2024 Dr. Ousmane Cantu MD Other Provider Active St art: August 20, 2024 Dr. Maggie Collins MD Other Provider Active Start : August 20, 2024 Dr. Bernabe Foreman MD Other Provider Active Sta rt: August 20, 2024 Dr. Zoya Sher MD Other Provider Active Start: August 20, 2024 Dr. Addy Nuno MD Other Provider Active St art: August 20, 2024 Dr. Melany Henderson MD Other Provider Active Star t: August 20, 2024 Dr. Oriln Ham MD Other Provider Active St art: August 20, 2024 Dr. Mayra Mar MD Other Provider Active Start: August 20, 2024 Luc Machuca MD Other Provider Active Start: August 20, 2024 Team Status: Active Member Role/Relationship Status Dates GARFIELD Maldonado Primary Care Provider Active Start: August 21, 2024 Dr. Fawad Cordon , Emergency Provider Active Start: August 21, 2024 Dr. Mara Mar DO Admit Provider Active Start : August 21, 2024 Dr. Mara Mar DO Attending Provider Active S tart: August 21, 2024 Dr. Mara Mar DO Other Provider Active Start : August 21, 2024 Harley Nunez MD Other Provider Active Start: [place] 2024 Dr. Liu Woody MD Other Provider Active Start: August 21, 2024 Isa Cruz MD Other Provider Active Start : August 21, 2024 Dr. Maki López DO Other Provider Active St art: August 21, 2024 Dr. Shalom Ledesma MD Other Provider Active Start: August 21, 2024 Dr. Jeronimo Trujillo MD Other Provider Active Sta rt: August 21, 2024 Dr. Maureen Townsend MD Other Provider Active Start : August 21, 2024 Dr. Efraín Alexis MD Other Provider Active Start: August 21, 2024 Dr. Lc Salazar MD Other Provider Active Start : August 21, 2024 Dr. Pravin Lehman MD Other Provider Active Sta rt: August 21, 2024 Tyra Bains MD Other Provider Active Start : August 21, 2024 Dr. Ousmane Cantu MD Other Provider Active St art: August 21, 2024 Dr. Maggie Collins MD Other Provider Active Start : August 21, 2024 Dr. Bernabe Foreman MD Other Provider Active Sta rt: August 21, 2024 Dr. Zoya Sher MD Other Provider Active Start: August 21, 2024 Dr. Addy Nuno MD Other Provider Active St art: August 21, 2024 Dr. Melany Henderson MD Other Provider Active Star t: August 21, 2024 Dr. Orlin Ham MD Other Provider Active St art: August 21, 2024 Dr. Mayra Mar MD Other Provider Active Start: August 21, 2024 Luc Machuca MD Other Provider Active Start: August 21, 2024 Team Status: Active Member Role/Relationship Status Dates Tasha Deutsch , OUTREACH COORDINATOR Primary Care Provider Active Start: August 22, 2024 Dr. Fawad Cordon , Emergency Provider Active Start: August 22, 2024 Dr. Mara Mar , DO Admit Provider Active Start : August 22, 2024 Dr. Mara Mar , DO Attending Provider Active S tart: August 22, 2024 Dr. Mara Mar , DO Other Provider Active Start : August 22, 2024 Harley Nunez MD Other Provider Active Start: [facility] 2024 Dr. Liu Woody MD Other Provider Active Start: August 22, 2024 Isa Cruz MD Other Provider Active Start : August 22, 2024 Dr. Maki López DO Other Provider Active St art: August 22, 2024 Dr. Shalom Ledesma MD Other Provider Active Start: August 22, 2024 Dr. Jeronimo Trujillo MD Other Provider Active Sta rt: August 22, 2024 Dr. Maureen Townsend MD Other Provider Active Start : August 22, 2024 Dr. Efraín Alexis MD Other Provider Active Start: August 22, 2024 Dr. Lc Salazar MD Other Provider Active Start : August 22, 2024 Dr. Pravin Lehman MD Other Provider Active Sta rt: August 22, 2024 Tyra Bains MD Other Provider Active Start : August 22, 2024 Dr. Ousmane Cantu MD Other Provider Active St art: August 22, 2024 Dr. Maggie Collins MD Other Provider Active Start : August 22, 2024 Dr. Bernabe Foreman MD Other Provider Active Sta rt: August 22, 2024 Dr. Zoya Sher MD Other Provider Active Start: August 22, 2024 Dr. Addy Nuno MD Other Provider Active St art: August 22, 2024 Dr. Melany Henderson MD Other Provider Active Star t: August 22, 2024 Dr. Orlin Ham MD Other Provider Active St art: August 22, 2024 Dr. Mayra Mar MD Other Provider Active Start: August 22, 2024 Luc Machuca MD Other Provider Active Start: August 22, 2024 Team Status: Inactive Member Role/Relationship Status Dates Tasha Deutsch , OUTREACH COORDINATOR Primary Care Provider Active Start: August 22, 2024 End: September 19, 2024 Dr. Behzad Dorado , DO Admit Provider Active Start: August 22, 2024 End: September 19, 2024 Dr. Behzad Dorado , DO Attending Provider Act basilio Start: August 22, 2024 End: September 19, 2024 Team Status: Active Member Role/Relationship Status Dates Tasha Deutsch , OUTREACH COORDINATOR Primary Care Provider Active Start: August 23, 2024 Dr. Behzad Dorado DO Admit Provider Active Start: August 23, 2024 Dr. Behzad Dorado , DO Attending Provider Act basilio Start: August 23, 2024 Dr. Behzad Dorado DO Other Provider Active Start: August 23, 2024 Team Status: Active Member Role/Relationship Status Dates Tasha Deutsch , OUTREACH COORDINATOR Primary Care Provider Active Start: August 26, 2024 Dr. Behzad Dorado , Admit Provider Active Start: August 26, 2024 Dr. Behzad Dorado , DO Attending Provider Act basilio Start: August 26, 2024 Dr. Behzad Dorado , DO Other Provider Active Start: August 26, 2024 Team Status: Active Member Role/Relationship Status Dates Tasha Deutsch , OUTREACH COORDINATOR Primary Care Provider Active Start: August 30, 2024 Dr. Behzad Dorado , DO Admit Provider Active Start: August 30, 2024 Dr. Behzad Dorado , DO Attending Provider Act basilio Start: August 30, 2024 Dr. Behzad Dorado , DO Other Provider Active Start: August 30, 2024 Team Status: Active Member Role/Relationship Status Dates Tsaha Suppan , OUTREACH COORDINATOR Primary Care Provider Active Start: August 31, 2024 Dr. Behzad Dorado DO Admit Provider Active Start: August 31, 2024 Dr. Behzad Dorado , DO Attending Provider Act basilio Start: August 31, 2024 Dr. Behzad Dorado , DO Other Provider Active Start: August 31, 2024 Team Status: Active Member Role/Relationship Status Dates Tasha Deutsch , OUTREACH COORDINATOR Primary Care Provider Active Start: September 02, 2024 Dr. Behzad Dorado , DO Admit Provider Active Start: September 02, 2024 Dr. Behzad Dorado , DO Attending Provider Act basilio Start: September 02, 2024 Dr. Behzad Dorado , DO Other Provider Active Start: September 02, 2024 Team Status: Active Member Role/Relationship Status Dates Tasha Suppan , OUTREACH COORDINATOR Primary Care Provider Active Start: September 05, 2024 Dr. Behzad Dorado , DO Admit Provider Active Start: September 05, 2024 Dr. Behzad Dorado , DO Attending Provider Act basilio Start: September 05, 2024 Dr. Behzad Dorado , DO Other Provider Active Start: September 05, 2024 Team Status: Active Member Role/Relationship Status Dates Tasha Deutsch , OUTREACH COORDINATOR Primary Care Provider Active Start: September 07, 2024 Dr. Behzad Dorado , DO Admit Provider Active Start: September 07, 2024 Dr. Behzad Dorado , DO Attending Provider Act basilio Start: September 07, 2024 Dr. Behzad Dorado , DO Other Provider Active Start: September 07, 2024 Team Status: Active Member Role/Relationship Status Dates Tasha Deutsch , OUTREACH COORDINATOR Primary Care Provider Active Start: September 09, 2024 Dr. Behzad Dorado , DO Admit Provider Active Start: September 09, 2024 Dr. Behzad Dorado , DO Attending Provider Act basilio Start: September 09, 2024 Dr. Behzad Dorado , DO Other Provider Active Start: September 09, 2024 Team Status: Active Member Role/Relationship Status Dates Tasha Suppan , OUTREACH COORDINATOR Primary Care Provider Active Start: September 13, 2024 Dr. Behzad Dorado , DO Admit Provider Active Start: September 13, 2024 Dr. Behzad Dorado , DO Attending Provider Act basilio Start: September 13, 2024 Dr. Behzad Dorado , DO Other Provider Active Start: September 13, 2024 Team Status: Active Member Role/Relationship Status Dates Tasha Suppan , OUTREACH COORDINATOR Primary Care Provider Active Start: September 14, 2024 Dr. Behzad Dorado , Admit Provider Active Start: September 14, 2024 Dr. Behzad Dorado DO Attending Provider Act basilio Start: September 14, 2024 Dr. Behzad Dorado , DO Other Provider Active Start: September 14, 2024 Team Status: Active Member Role/Relationship Status Dates Tasha Deutsch , OUTREACH COORDINATOR Primary Care Provider Active Start: September 16, 2024 Dr. Behzad Dorado , Admit Provider Active Start: September 16, 2024 Dr. Behzad Dorado DO Attending Provider Act basilio Start: September 16, 2024 Dr. Behzad Dorado DO Other Provider Active Start: September 16, 2024 Team Status: Active Member Role/Relationship Status Dates Tasha Suppan , OUTREACH COORDINATOR Primary Care Provider Active Start: September 18, 2024 Dr. Behzad Dorado DO Admit Provider Active Start: September 18, 2024 Dr. Behzad Dorado DO Attending Provider Act basilio Start: September 18, 2024 Dr. Behzad Dorado DO Other Provider Active Start: September 18, 2024 Team Status: Inactive Member Role/Relationship Status Dates Tasha Suppan , OUTREACH COORDINATOR Primary Care Provider Active Start: October 04, 2024 End: October 04, 2024 Tasha Suppan , OUTREACH COORDINATOR Referring Provider Active Start: October 04, 2024 End: October 04, 2024 ANDIE Serrato Attending Provider Active S tart: October 04, 2024 End: October 04, 2024 Team Status: Inactive Member Role/Relationship Status Dates Tasha Suppan , OUTREACH COORDINATOR Primary Care Provider Active Start: October 12, 2024 End: October 12, 2024 Tasha Suppan , OUTREACH COORDINATOR Referring Provider Active Start: October 12, 2024 End: October 12, 2024 Dr. Cricket Leyva MD Attending Provider Active Start: October 12, 2024 End: October 12, 2024 Interlocker Maintainer Relationship Specialty Start Date End Date Tasha Deutsch APRN.CNP [address] [place] [address] PCP - General Family Medicine 04/05/24 Behzad Dorado [address] [place] [address] Referring Internal Medicine 09/17/24 Tasha Deutsch, COMMUNITY RELATIONS OFFICER.AVIATION ELECTRONIC WARFARE OPERATOR [address] [place] [address] Home Care Provider Family Medicine 09/17/24 Mack Brito RN [address] [place], [place] [id number] [employer] Post Acute Care 09/20/24 Interlocker Maintainer Relationship Specialty Start Date End Date Tasha Deutsch COMMUNITY RELATIONS OFFICER.AVIATION ELECTRONIC WARFARE OPERATOR [address] [place] [address] PCP - General Family Medicine 04/05/24 Behzad Dorado [address] [place] [phone] Referring Internal Medicine 09/17/24 Tasha Deutsch COMMUNITY RELATIONS OFFICER.AVIATION ELECTRONIC WARFARE OPERATOR [address] [place] [address] Home Care Provider Family Medicine 09/17/24 Mack Brito RN [address] [place], [place] [id number] [employer] Post Acute Care 09/20/24 Team Status: Inactive Member Role/Relationship Status Dates GARFIELD Maldonado Primary Care Provider Active Start: October 18, 2024 End: October 18, 2024 Dr. Mihai Woods DO Emergency Provider Active Start: October 18, 2024 End: October 18, 2024 Interlocker Maintainer Relationship Specialty Start Date End Date Tasha Deutsch COMMUNITY RELATIONS OFFICER.AVIATION ELECTRONIC WARFARE OPERATOR [address] [place] [address] PCP - General Family Medicine 04/05/24 Behzad Dorado [address] [place] [place] [phone] Referring Internal Medicine 09/17/24 Tasha Deutsch COMMUNITY RELATIONS OFFICER.AVIATION ELECTRONIC WARFARE OPERATOR [address] [place] [address] Home Care Provider Family Medicine 09/17/24 Mack Brito, JESIKA [address] [facility], [place], [place] [id number] Company [employer]orer Post Acute Care 09/20/24 10/17/24 Interlocker Maintainer Relationship Specialty Start Date End Date Tasha Deutsch COMMUNITY RELATIONS OFFICER.AVIATION ELECTRONIC WARFARE OPERATOR [address] [place] [address] PCP - General Family Medicine 04/05/24 Behzad Dorado [address] [place] [place] [address] Referring Internal Medicine 09/17/24 Tasha Deutsch COMMUNITY RELATIONS OFFICER.AVIATION ELECTRONIC WARFARE OPERATOR [address] [place] [address] Home Care Provider Family Medicine 09/17/24 Interlocker Maintainer Relationship Specialty Start Date End Date Tasha Deutsch COMMUNITY RELATIONS OFFICER.AVIATION ELECTRONIC WARFARE OPERATOR [address] [place] [address] PCP - General Family Medicine 04/05/24 Behzad Dorado [address] [place] [place] [address] Referring Internal Medicine 09/17/24 Tasha Deutsch COMMUNITY RELATIONS OFFICER.AVIATION ELECTRONIC WARFARE OPERATOR [address] [place] [address] Home Care Provider Family Medicine 09/17/24 Interlocker Maintainer Relationship Specialty Start Date End Date Tasha Deutsch COMMUNITY RELATIONS OFFICER.AVIATION ELECTRONIC WARFARE OPERATOR [address] [place] [address] PCP - General Family Medicine 04/05/24 Behzad Dorado [address] [place] [phone] Referring Internal Medicine 09/17/24 Tasha Deutsch, COMMUNITY RELATIONS OFFICER.AVIATION ELECTRONIC WARFARE OPERATOR [address] [place] [address] Home Care Provider Family Medicine 09/17/24 Interlocker Maintainer Relationship Specialty Start Date End Date Tasha Deutsch COMMUNITY RELATIONS OFFICER.AVIATION ELECTRONIC WARFARE OPERATOR [address] [place] [address] PCP - General Family Medicine 04/05/24 Behzad Dorado [address] [place] [phone] Referring Internal Medicine 09/17/24 Tasha Deutsch, COMMUNITY RELATIONS OFFICER.AVIATION ELECTRONIC WARFARE OPERATOR [address] [place] [address] Home Care Provider Family Medicine 09/17/24 Interlocker Maintainer Relationship Specialty Start Date End Date [facility], Other [address] [facility] [place] [address] PCP - General 10/20/24 Interlocker Maintainer Relationship Specialty Start Date End Date Tasha Deutsch COMMUNITY RELATIONS OFFICER.AVIATION ELECTRONIC WARFARE OPERATOR [address] [place] [address] PCP - General Family Medicine 04/05/24 Behzad Dorado [address] [place] [phone] Referring Internal Medicine 09/17/24 Tasha Deutsch COMMUNITY RELATIONS OFFICER.AVIATION ELECTRONIC WARFARE OPERATOR [address] [place] [address] Home Care Provider Family Medicine 09/17/24 Interlocker Maintainer Relationship Specialty Start Date End Date Tasha Deutsch COMMUNITY RELATIONS OFFICER.AVIATION ELECTRONIC WARFARE OPERATOR [address] [place] [address] PCP - General Family Medicine 04/05/24 Behzad Dorado [address] [place] [phone] Referring Internal Medicine 09/17/24 Tasha Deutsch COMMUNITY RELATIONS OFFICER.AVIATION ELECTRONIC WARFARE OPERATOR [address] [place] [address] Home Care Provider Family Medicine 09/17/24 Interlocker Maintainer Relationship Specialty Start Date End Date Tasha Deutsch COMMUNITY RELATIONS OFFICER.AVIATION ELECTRONIC WARFARE OPERATOR [address] [place] [address] PCP - General Family Medicine 04/05/24 Behzad Dorado [address] [facility] [place] [phone] Referring Internal Medicine 09/17/24 Tasha Deutsch, COMMUNITY RELATIONS OFFICER.AVIATION ELECTRONIC WARFARE OPERATOR [address] [place] [address] Home Care Provider Family Medicine 09/17/24 Mack Brito, RN [address] [place] [address] Company [employer] Post Acute Care 09/20/24 10/17/24 Goals (unrecognized section and content) Goals may be documented in a n alternate sectionGoals may be documented in an alternate section Inactive Administered Medications - up to 3 most recent administrations Administered Medications (un recognized section and content) Medication Order MAR Action Action Date Dose Rate Site betamethasone acetate-betamethasone sodium phosphate 6 mg injection (CELESTONE) 6 mg, Injection - FOR ORTHO USE ONLY, ONCE, 1 dose, Starting on Fri06/23/23 at 1034, Until Fri06/23/23 at 1034 Given 06/23/2023 10:34 AM EDT 6 mg Knee , Left lidocaine (PF) 10 mg/mL (1 %) 4 mL injection (XYLOCAINE) 4 mL, Injection - FOR ORTHO USE ONLY, ONCE, 1 dose, Starting on Fri06/23/23 at 1034, Until Fri06/23/23 at 1034 Given 06/23/2023 10:34 AM EDT 4 mL Knee , Left Scheduled Active and Recently Administ ered Medications (unrecognized section and content) Medication Order 11/14/2024 11/15/2024 11/16/2024 aspirin chewable tablet 81 mg(Linked Group 1) 81 mg, Per NG tube, DAILY, First dose (after last modification) on Fri11/09/24 at 0900, Until Discontinued 0940 (Given - Provider: Margo Montesinos RN) 0814 (Given - Provider: Lu Rascon, JESIKA) 0820 (Given - Provider: Lu Rascon, RN) aspirin suppository 300 mg(Linked Group 1) 300 mg, Rectal, DAILY, First dose (after last modification) on Fri11/09/24 at 0900, Until Discontinued 0940 (See Alternative - Provider: Margo Montesinos RN) 0814 (See Alternative - Provider: Lu Rascon, RN) 0820 (See Alternative - Provider: Lu Rascon, RN) Atorvastatin (LIPITOR) tablet 40 mg 40 mg, PEG Tube, DAILY AT BEDTIME, First dose on Fri11/15/24 at 2100, Until Discontinued 2019 (Given - Provider: Lynn Montanez RN) Divalproex Sodium (DEPAKOTE SPRINKLE) sprinkles 125 mg 125 mg, PEG Tube, 2 TIMES DAILY, First dose on Fri11/16/24 at 0500, Until Discontinued, May be swallowed whole or capsule opened and contents sprinkled on small amount (1 teaspoonful) of soft food (e.g., pudding, applesauce) to be used immediately. Do not crush, split, or chew contents. 0509 (Given - Provider: Lynn Montanez RN)1700 (Canceled Entry - Provider: System Discharge - Comment: Automatically canceled at discontinue of medication order) Doxazosin (CARDURA) tablet 4 mg 4 mg, Per NG tube, DAILY AT BEDTIME, First dose (after last modification) on Fri11/10/24 at 2100, Until Discontinued 2021 (Given - Provider: Lynn Montanez RN) 2019 (Given - Provider: Lynn Montanez RN) Heparin injection 5,000 Units(Linked Group 2) 5,000 Units, Subcutaneous, EVERY 8 HOURS (0800/1600/2200), First dose (after last modification) on Fri11/13/24 at 0800, Until Discontinued 0940 (Given - Provider: Margo Montesinos RN)164 (Given - Provider: Margo Montesinos RN)2020 (Given - Provider: Lynn Montanez RN) 0817 (Given - Provider: Lu Rascon, JESIKA)1655 (Given - Provider: Lu Rascon, JESIKA)2019 (Given - Provider: Lynn Montanez RN) 0858 (Given - Provider: Lu Rascon RN)1600 (Canceled Entry - Provider: System Discharge - Comment: Automatically canceled at discontinue of medication order) Ipratropium-albuterol (DUONEB) 0.5-2.5 (3) MG/3ML nebulizer solution 3 mL (CANCELED) 3 mL, Nebulization, EVERY 6 HOURS NON-STANDARD, First dose on Fri11/12/24 at 0430, Until Discontinued 0026 (Canceled Entry - Provider: Lynn Montanez RN)0232 (Given - Provider: Johnathon Blancas RCP)0906 (Given - Provider: Darrin Hurtado RCP)1431 (Given - Provider: Darrin Hurtado RCP)1959 (Given - Provider: David Hamilton RCP) 0421 (Not Given - Provider: David Hamilton RCP - Reason: RT not available)0943 (Given - Provider: Neal Alejandro RCP)1627 (Given - Provider: Neal Alejandro RCP) Melatonin tablet 6 mg 6 mg, Per NG tube, DAILY EARLY EVENING, First dose (after last modification) on Fri11/02/24 at 1800, Until Discontinued 1705 (Given - Provider: Margo Montesinos RN) 2019 (Given - Provider: Lynn Montanez RN) Metoprolol (LOPRESSOR) tablet 25 mg 25 mg, Per NG tube, EVERY 12 HOURS, First dose (after last modification) on Fri10/26/24 at 2100, Until Discontinued 0940 (Given - Provider: Margo Montesinos RN)2021 (Given - Provider: Lynn Montanez RN) 08 (Given - Provider: Lu Rascon RN)2019 (Given - Provider: Lynn Montanez RN) 0820 (Given - Provider: Lu Rascon, JESIKA) Polyethylene glycol (MIRALAX) packet 17 g(Linked Group 3) 17 g, Per NG tube, DAILY, First dose (after last modification) on Fri11/11/24 at 0900, Until Discontinued 0940 (Given - Provider: Margo Montesinos RN) 0818 (Not Given - Provider: Lu Rascon RN - Reason: Order Parameters not met) 0841 (Not Given - Provider: Lu Rascon RN - Reason: Order Parameters not met) QUEtiapine (SEROquel) tablet 12.5 mg (COMPLETED) 12.5 mg, PEG Tube, ONCE, 1 dose, On Fri11/14/24 at 1430 1408 (Given - Provider: Margo Montesinos RN) QUEtiapine (SEROquel) tablet 12.5 mg (COMPLETED) 12.5 mg, PEG Tube, ONCE, 1 dose, On Fri11/14/24 at 2145 2120 (Given - Provider: Lynn Montanez, JESIKA) QUEtiapine (SEROquel) tablet 12.5 mg (COMPLETED) 12.5 mg, Oral, ONCE, 1 dose, On Fri11/16/24 at 0115 0045 (Given - Provider: Lynn Montanez RN) QUEtiapine (SEROquel) tablet 25 mg (COMPLETED) 25 mg, Per NG tube, ONCE, 1 dose, On Fri11/14/24 at 0145 0147 (Given - Provider: Lynn Montanez RN) Senna (SENOKOT) tablet 17.2 mg(Linked Group 4) 17.2 mg, Per NG tube, DAILY, First dose (after last modification) on Fri11/03/24 at 0900, Until Discontinued 0940 (Given - Provider: Margo Montesinos RN) 0818 (Not Given - Provider: Lu Rascon RN - Reason: Order Parameters not met) 0841 (Not Given - Provider: Lu Rascon RN - Reason: Order Parameters not met) Water liquid (free water) 30 mL 30 mL, Per NG tube, EVERY 4 HOURS, First dose on Fri10/19/24 at 1800, Until Discontinued, For tube patency. 0034 (Given - Provider: Lynn Montanez RN)0423 (Given - Provider: Lynn Montanez RN)0940 (Given - Provider: Margo Montesinos RN)1304 (Given - Provider: Margo Montesinos RN)1705 (Given - Provider: Margo Montesinos RN)2007 (Given - Provider: Lynn Montanez RN)2308 (Given - Provider: Lynn Montanez RN) 0347 (Given - Provider: Lynn Montanez RN)0955 (Given - Provider: Lu Rascon RN)1333 (Given - Provider: Lu Rascon RN)1852 (Given - Provider: Sheree De La Cruz RN)2003 (Given - Provider: Lynn Montanez RN)2322 (Given - Provider: Lynn Montanez RN) 0405 (Given - Provider: Lynn Montanez RN)1000 (Given - Provider: Sheree De La Cruz RN)1400 (Canceled Entry - Provider: System Discharge - Comment: Automatically canceled at discontinue of medication order) Continuous Medication Order 11/14/2024 11/15/2024 11/16/2024 Osmolite 1.2 yomi LIQD Nasogastric, CONTINUOUS, Starting on Fri10/19/24 at 1600, Until Fri11/16/24 at 1724, Dosing: Continuous, Starting rate (mL/hr): 10, Advance by (mL/hr): 10, Every ____ hours: 4, Goal rate (mL/hr): 50, Goal volume (ml/day): 1,200 0400 (Rate/Dose Verify - Provider: Lynn Montanez RN)0501 (New Feeding/Supplement - Provider: Lynn Montanez RN)0954 (Rate/Dose Verify - Provider: Margo Montesinos RN)1446 (Rate/Dose Verify - Provider: Margo Montesinos RN)2000 (Rate/Dose Verify - Provider: Lynn Montanez RN) 0345 (New Feeding/Supplement - Provider: Lynn Montanez RN)0815 (Rate/Dose Change - Provider: Lu Rascon RN)202 (Rate/Dose Verify - Provider: Lynn Montanez RN) 0240 (New Feeding/Supplement - Provider: Lynn Montanez RN)0400 (Rate/Dose Verify - Provider: Lynn Montanez RN)0820 (Rate/Dose Change - Provider: Lu Rascon RN) Sodium chloride 0.9% IV solution Intravenous, at 50 mL/hr, CONTINUOUS, Starting on Fri11/12/24 at 0000, Until Fri11/16/24 at 1724 PRN Medication Order 11/14/2024 11/15/2024 11/16/2024 Acetaminophen (TYLENOL) tablet 325 mg(Linked Group 5) 325 mg, Per NG tube, EVERY 4 HOURS NEEDED, Starting on Fri10/18/24 at 1410, Until Fri11/16/24 at 1724, Mild Pain, Moderate Pain, Maximum dose of acetaminophen is 4000 mg from all sources in 24 hours. 1354 (See Alternative - Provider: Margo Montesinos RN)2020 (See Alternative - Provider: Lynn Montanez RN) 2019 (See Alternative - Provider: Lynn Montanez RN) Acetaminophen (TYLENOL) tablet 650 mg(Linked Group 5) 650 mg, Per NG tube, EVERY 4 HOURS NEEDED, Starting on Fri10/18/24 at 1410, Until Fri11/16/24 at 1724, Severe Pain, Oral temp > 99.5, Maximum dose of acetaminophen is 4000 mg from all sources in 24 hours. 1354 (Given - Provider: Margo Montesinos, JESIKA)2020 (Given - Provider: Lynn Montanez, JESIKA) 2019 (Given - Provider: Lynn Montanez, JESIKA) Albuterol (PROVENTIL) (2.5 MG/3ML) 0.083% inhalation solution 2.5 mg 2.5 mg, Nebulization, EVERY 6 HOURS NEEDED, Starting on Fri11/12/24 at 2313, Until Fri11/16/24 at 1724, Respiratory Distress, Wheezing ceFAZolin (ANCEF) 1 g in dextrose premix IVPB 1 g, Intravenous, Administer over 15 Minutes, COOKEE TO PROCEDURE, 1 dose, Starting on Fri11/12/24 at 1225, Until Fri11/16/24 at 1724, Other, Prior to PEG, Pre-op/Pre-Proc guaiFENesin (ROBITUSSIN) oral solution 200 mg 200 mg, Per NG tube, EVERY 6 HOURS NEEDED, Starting on Fri11/10/24 at 0934, Until Fri11/16/24 at 1724, Cough, Congestion hydrALAZINE (APRESOLINE) injection 10 mg(Linked Group 6) 10 mg, Intravenous, EVERY 1 HOUR NEEDED, Starting on Fri10/19/24 at 1006, Until Fri11/16/24 at 1724, SBP > 160 mmHg with HR <60 bpm, Use as initial dose. Use if Heart Rate LESS THAN 60 beats per minute. Higher dose may be administered if lower dose was previously documented as ineffective 10 minutes after administration and did not result in adverse effects (HR>90). hydrALAZINE (APRESOLINE) injection 20 mg(Linked Group 6) 20 mg, Intravenous, EVERY 1 HOUR NEEDED, Starting on Fri10/19/24 at 1006, Until Fri11/16/24 at 1724, SBP > 160 mmHg with HR <60 bpm, Use if Heart Rate LESS THAN 60 beats per minute. Higher dose may be administered if lower dose was previously documented as ineffective 10 minutes after administration and did not result in adverse effects (HR>90). Decrease back to lower dose if patient has adverse effects, or no PRN used in previous 3 hours. Ipratropium-albuterol (DUONEB) 0.5-2.5 (3) MG/3ML nebulizer solution 3 mL 3 mL, Nebulization, EVERY 6 HOURS NEEDED, Starting on Fri11/15/24 at 1645, Until Fri11/16/24 at 1724, Shortness of Breath, Cough, Respiratory Distress, Wheezing Labetalol (NORMODYNE) injection 10 mg(Linked Group 7) 10 mg, Intravenous, EVERY 1 HOUR NEEDED, Starting on Fri10/19/24 at 1006, Until Fri11/16/24 at 1724, SBP > 160 mmHg with HR >60 bpm, Use as initial dose. Use if Heart Rate GREATER THAN 60 beats per minute. Higher dose may be administered if lower dose was previously documented as ineffective 10 minutes after administration and did not result in adverse effects (HR<60). For vials: labetalol should be treated as a SINGLE USE VIAL. Discard remaining contents after one use. Labetalol (NORMODYNE) injection 20 mg(Linked Group 7) 20 mg, Intravenous, EVERY 1 HOUR NEEDED, Starting on Fri10/19/24 at 1006, Until Fri11/16/24 at 1724, SBP > 160 mmHg with HR >60 bpm, Use if Heart Rate GREATER THAN 60 beats per minute. Higher dose may be administered if lower dose was previously documented as ineffective 10 minutes after administration and did not result in adverse effects (HR<60). Decrease back to lower dose if patient has adverse effects, or no PRN used in previous 3 hours. For vials: labetalol should be treated as a SINGLE USE VIAL. Discard remaining contents after one use. Ondansetron (ZOFRAN) tablet 4 mg(Linked Group 8) 4 mg, Per NG tube, EVERY 6 HOURS NEEDED, Starting on Fri10/19/24 at 0958, Until Fri11/16/24 at 1724, Nausea / Vomiting Ondansetron 4mg/2ml (ZOFRAN) injection 4 mg(Linked Group 8) 4 mg, Intravenous, EVERY 6 HOURS NEEDED, Starting on Fri10/19/24 at 0958, Until Fri11/16/24 at 1724, Nausea / Vomiting Sodium chloride 0.9% IV solution 250 mL Intravenous, at 20 mL/hr, NEEDED, Starting on Fri10/18/24 at 1410, Until Fri11/16/24 at 1724, Carrier Fluid - See Admin. Inst, 250mL 0.9NS to be used as carrier fluid for intermittent small volume or piggyback medication administration as needed. Infusion rate of the carrier fluid should be set at 20 mL/hr unless the rate as the intermittent medication is less than 20 mL/hr. For intermittent medications with a rate less than 20 mL/hr set the carrier fluid at that rate of the intermittent or piggy back medication. Linked Groups Order Group 1: aspirin chewable tablet 81 mgJump to med 81 mg, Per NG tube, DAILY, First dose (after last modification) on Fri11/09/24 at 0900, Until Discontinued Or aspirin suppository 300 mgJump to med 300 mg, Rectal, DAILY, First dose (after last modification) on Fri11/09/24 at 0900, Until Discontinued Group 2: Heparin injection 5,000 UnitsJump to med 5,000 Units, Subcutaneous, EVERY 8 HOURS (0800/1600/2200), First dose (after last modification) on Fri11/13/24 at 0800, Until Discontinued Group 3: Polyethylene glycol (MIRALAX) packet 17 gJump to med 17 g, Per NG tube, DAILY, First dose (after last modification) on Fri11/11/24 at 0900, Until Discontinued Group 4: Senna (SENOKOT) tablet 17.2 mgJump to med 17.2 mg, Per NG tube, DAILY, First dose (after last modification) on Fri11/03/24 at 0900, Until Discontinued Group 5: Acetaminophen (TYLENOL) tablet 325 mg (CANCELED) 325 mg, Oral, EVERY 4 HOURS NEEDED, Starting on Fri10/18/24 at 1410, Until Fri10/19/24 at 0959, Mild Pain, Moderate Pain, Maximum dose of acetaminophen is 4000 mg from all sources in 24 hours. Or Acetaminophen (TYLENOL) tablet 325 mgJump to med 325 mg, Per NG tube, EVERY 4 HOURS NEEDED, Starting on Fri10/18/24 at 1410, Until Fri11/16/24 at 1724, Mild Pain, Moderate Pain, Maximum dose of acetaminophen is 4000 mg from all sources in 24 hours. Or Acetaminophen (TYLENOL) tablet 650 mg (CANCELED) 650 mg, Oral, EVERY 4 HOURS NEEDED, Starting on Fri10/18/24 at 1410, Until Fri10/19/24 at 0959, Severe Pain, Oral temp > 99.5, Maximum dose of acetaminophen is 4000 mg from all sources in 24 hours. Or Acetaminophen (TYLENOL) tablet 650 mgJump to med 650 mg, Per NG tube, EVERY 4 HOURS NEEDED, Starting on Fri10/18/24 at 1410, Until Fri11/16/24 at 1724, Severe Pain, Oral temp > 99.5, Maximum dose of acetaminophen is 4000 mg from all sources in 24 hours. Group 6: hydrALAZINE (APRESOLINE) injection 10 mgJump to med 10 mg, Intravenous, EVERY 1 HOUR NEEDED, Starting on Fri10/19/24 at 1006, Until Fri11/16/24 at 1724, SBP > 160 mmHg with HR <60 bpm, Use as initial dose. Use if Heart Rate LESS THAN 60 beats per minute. Higher dose may be administered if lower dose was previously documented as ineffective 10 minutes after administration and did not result in adverse effects (HR>90). Or hydrALAZINE (APRESOLINE) injection 20 mgJump to med 20 mg, Intravenous, EVERY 1 HOUR NEEDED, Starting on Fri10/19/24 at 1006, Until Fri11/16/24 at 1724, SBP > 160 mmHg with HR <60 bpm, Use if Heart Rate LESS THAN 60 beats per minute. Higher dose may be administered if lower dose was previously documented as ineffective 10 minutes after administration and did not result in adverse effects (HR>90). Decrease back to lower dose if patient has adverse effects, or no PRN used in previous 3 hours. Group 7: Labetalol (NORMODYNE) injection 10 mgJump to med 10 mg, Intravenous, EVERY 1 HOUR NEEDED, Starting on Fri10/19/24 at 1006, Until Fri11/16/24 at 1724, SBP > 160 mmHg with HR >60 bpm, Use as initial dose. Use if Heart Rate GREATER THAN 60 beats per minute. Higher dose may be administered if lower dose was previously documented as ineffective 10 minutes after administration and did not result in adverse effects (HR<60). For vials: labetalol should be treated as a SINGLE USE VIAL. Discard remaining contents after one use. Or Labetalol (NORMODYNE) injection 20 mgJump to med 20 mg, Intravenous, EVERY 1 HOUR NEEDED, Starting on Fri10/19/24 at 1006, Until Fri11/16/24 at 1724, SBP > 160 mmHg with HR >60 bpm, Use if Heart Rate GREATER THAN 60 beats per minute. Higher dose may be administered if lower dose was previously documented as ineffective 10 minutes after administration and did not result in adverse effects (HR<60). Decrease back to lower dose if patient has adverse effects, or no PRN used in previous 3 hours. For vials: labetalol should be treated as a SINGLE USE VIAL. Discard remaining contents after one use. Group 8: Ondansetron 4mg/2ml (ZOFRAN) injection 4 mgJump to med 4 mg, Intravenous, EVERY 6 HOURS NEEDED, Starting on Fri10/19/24 at 0958, Until Fri11/16/24 at 1724, Nausea / Vomiting Or Ondansetron (ZOFRAN) tablet 4 mgJump to med 4 mg, Per NG tube, EVERY 6 HOURS NEEDED, Starting on Fri10/19/24 at 0958, Until Fri11/16/24 at 1724, Nausea / Vomiting FOR RECORDS PERTAINING TO PATIENTS WHO ARE OR HAVE BEEN ENROLLED IN A CHEMICAL DEPENDENCY/SUBSTANCEABUSE PROGRAM, SOME INFORMATION MAY BE OMITTED. This clinical summary was aggregated from multiple sources. Caution should be exercised in using it in the provision of clinical care. This summary normalizes information from multiple sources, and as a consequence, information in this document may materially change the coding, format and clinical context of patient data. In addition, data may be omitted in some cases. CLINICAL DECISIONS SHOULD BE BASED ON THE PRIMARY CLINICAL RECORDS. [employer] [facility]. provides no warranty or guarantee of the accuracy or completeness of information in this document.
[2025-02-20 05:34] LABS: Hematocrit 38.5 % (37-47); Hemoglobin 11.9 g/dL (12.0-15.0); Immature Granulocytes Count 0.020 X10^3/uL (0.0-0.0); Mean Corp Hgb Conc 30.9 g/dL (32-36); Mean Corpuscular Volume 96.0 fL (81-99); Mean Platelet Vol. 9.4 fl (6.2-12.0); NRBC Flagged by Analyzer 0 % (0-5); Platelet Count 316 K/mm3 (150-450); RBC Distribution Width CV 13.4 % (11.6-14.6); RBC Distribution Width SD 48.0 fl (35.1-43.9); Red Blood Count 4.01 M/mm3 (4.2-5.4); White Blood Count 7.9 K/mm3 (4.4-11.0)
[2025-02-20 05:43] LABS: Prothrombin Time (Protime)PT. 13.5 SECONDS (11.7-14.9)
[2025-02-20 05:44] LABS: Partial Thromboplast Time 25.9 Seconds (24.1-36.2)
--- NOTE | 2025-02-20 05:50 | RAD_ITS ---
PROCEDURE: CHEST 1 VIEW 02/20/2025 REASON FOR EXAM: NEURO DEFICIT, ACUTE, STROKE SUSPECTED TECHNIQUE: Frontal view of the chest. COMPARISON: 08/16/2024. FINDINGS: The lungs are expanded. There is no demonstrated parenchymal abnormality. There is no demonstrated pleural abnormality. Enlarged cardiac silhouette. Normal mediastinum and alli. Normal visualized pulmonary arteries. Atheromatous plaques of the visualized aortic arch and descending thoracic aorta. Diffuse spondylosis of the visualized thoracic spine. Normal visualized ribs, clavicles. Degenerative joint disease. There is no demonstrated abnormality of the visualized soft tissue structures of the upper abdomen. RAD/Chest 1 View IMPRESSION: No evidence for acute abnormality. Reading Location: [facility]
[2025-02-20 06:00] LABS: Anion Gap 8 (5-15); BUN 25 mg/dL (4-19); BUN/Creat Ratio 28.1 RATIO (10-20); Calcium,Total 9.5 mg/dL (7.6-11.0); Carbon Dioxide 27.2 mmol/L (21.0-32.0); Chloride 105 mmol/L (98-108); Estimated Creatinine Clearance 35.22 ml/min (50-250); Glucose 104 mg/dL (70-99); Potassium 4.4 mmol/L (3.3-5.1); Troponin T High Sensitivity 22 ng/L (<=14)
[2025-02-20] MEDS: 0.9% Normal Saline (500mL Bag) 500 ML 999 ML IV (06:07)
--- NOTE | 2025-02-20 06:42 | ED.RN ---
NIH difficult to score at this time d/t patient's ability to follow commands and continued movements. MD aware.
--- NOTE | 2025-02-20 07:02 | EDS_ITS ---
HPI History of Present Illness Chief Complaint: Stroke Alert Narrative Narrative: Patient was seen and examined after presenting to ED for stroke coming from nursing facility she has dementia just had a stroke back in October as well reportedly has residual right sided deficits patient has a history of dementia as stated previously but initially we were told last known well was 0230 with complete left-sided deficits. [facility] Medical History Dyslipidemia HTN (hypertension) Paroxysmal atrial fibrillation Chronic anticoagulation Thoracic kyphosis Cystitis Stroke/cerebrovascular accident CKD (chronic kidney disease) stage 4, GFR 15-29 ml/min History of atrial fibrillation Fe deficiency anemia Osteoarthritis Home Medications Medication Instructions Recorded Last Taken Type atorvastatin 40 mg tablet 40 mg feeding tube QHS mehrdad sterol 10/12/24 Unknown History aspirin 81 mg chewable tablet 1 tab feeding tube DAILY 02/20/25 Unknown History (Aspirin Childrens) buspirone 5 mg tablet 5 mg PO BID 02/20/25 Unknown History buspirone 5 mg tablet 5 mg PO QHS 02/20/25 Unknown History cholecalciferol (vitamin D3) 25 50 mcg feeding tube DA SUKHJINDER 02/20/25 Unknown History mcg (1,000 unit) tablet lactose-reduced food-fiber 0.07 ml 02/20/25 Unknown Hi story gram-1.5 kcal/mL liquid for tube feed (Isosource 1.5 Richard) melatonin 3 mg tablet 3 mg feeding tube QHS insomn ia 02/20/25 Unknown History metoprolol tartrate 25 mg tablet 25 mg feeding tube BI D 02/20/25 Unknown History Allergy/AdvReac Type Severity Reaction Status Date / Time adhesive tape Allergy Unknown Unknown Verified 02/20/25 05:16 sulfamethoxazole (From Allergy Unknown Unknown Verified 02/20/25 05:16 Bactrim) trimethoprim (From Bactrim) Allergy Unknown Unknown Verified 02/20/25 05:16 nitrofurantoin (From Allergy Rash Verified 02/20/25 05:16 Macrobid) [id number]-[id number] Reductase AdvReac Unknown Unknown Verified 02/20/25 05:16 Inhibitor Family History Mother Cancer Hypertension CVA (cerebral vascular accident) Father Heart disease CVA (cerebral vascular accident) Brother Ischemic heart disease CVA (cerebral vascular accident) Sister Hypertension Diabetes Surgical History History of right hip replacement History of left hip replacement History of bilateral cataract extraction History of umbilical hernia repair History of esophagogastroduodenoscopy (EGD) History of colonoscopy History of bunionectomy of both great toes Hx of tonsillectomy Social History household members: none housing: [facility] Smoking Status: Never smoker alcohol intake: never substance use type: does not use ROS ROS ED ROS Narrative Acute care caveat applies EXAM Physical Exam Narrative Exam Narrative: From my initial assessment the best NIH I could perform on her would have been a 6 however she was not fully cooperating or participating in the exam suspect that her NIH is likely higher. Patient can say her name clearly but she will garble some of the other speech she attempts to open her eyes but she mostly just moves her right upper extremity which was reportedly not usable before and she will move her feet bilaterally and has some movement with her left upper extremity but minimal. Pupils are equal round reactive to light and not deviated to 1 side or the other. She is afebrile. Hemodynamically stable. Const Vital Signs: 02/20/25 05:09 02/20/25 05:13 02/20/25 05:38 Temperature 97.5 F L Temperature Source Temporal Pulse Rate 72 68 73 Respiratory Rate 18 18 25 H Blood Pressure 166/105 H 166/105 H 168/110 H Blood Pressure Mean 125 125 129 Pulse Ox 97 95 94 Oxygen Delivery Method Room Air Room Air Room Air Oxygen Flow Rate (L/min) 02/20/25 05:46 02/20/25 06:09 02/20/25 06:30 Temperature Temperature Source Pulse Rate 70 70 Respiratory Rate 18 17 Blood Pressure 168/110 H 144/90 H Blood Pressure Mean 129 108 Pulse Ox 100 99 Oxygen Delivery Method Room Air Room Air Nasal Cannula Oxygen Flow Rate (L/min) 2 MDM MDM MDM Narrative Medical decision making narrative: Nursing notes, triage notes, available previous documentation, and vital signs were reviewed. Any discrepancies noted were addressed. Differential Diagnoses: Stroke to consider intracranial bleeding she is not hypoglycemic lower suspicion for infection Interventions: Fluids Given: 500 cc normal saline Labs Reviewed: No leukocytosis or leukopenia hemoglobin is 11.9 no coagulopathy no electrolyte abnormality creatinine clearance is 35 with a creatinine of 0.8 patient's glucose was 104 troponin was minimally elevated at 22 likely secondary to her ongoing ischemic stroke Imaging Reviewed: Personally reviewed and interpreted by me: CT head when I was reviewing in the radiology room it appears that she has evidence of an acute infarct involving her right parietal occipital region I did receive a phone call from radiologist and they suspected a P2 source of occlusion CT angio of the head and neck showing a distal P1 occlusion on the right EKG: Motion artifact just because of patient Moving but showed a rate of 69 does appear to be sinus. EKG interpretation is noted and agreed to in the EMR. The interpretation of this patient's EKG contributed directly to the care and management of this patient. Previous Documentation Reviewed: ED physician note from 10/18/2024 patient had an intracranial hemorrhage causing a hemorrhagic stroke as at the time she was on Eliquis for A-fib she was then flown to [facility] I also reviewed discharge summary from 09/18/2024 and the patient apparently has history of previous strokes as well with right-sided weaknesses ED Course: Patient presenting with stroke we were initially told 0230 for her last known well however when I called and spoke with the nurse she was actually taking care of her at the facility he informing the last time she was normal and using the left side of her body was at 1930 on 02/19/2025 this would make the patient not a tenecteplase candidate given that she is outside the window. [facility] tele stroke physician did join in and stated the patient is not a tenecteplase candidate and would not be a candidate for mechanical thrombectomy either I did have a phone conversation with her daughter Aditi as well as a [id number] conversation with her son who was present at the bedside that the patient would not be receiving tenecteplase or mechanical retrieval but that she would be admitted to the hospital the best course of action would be to get palliative care involved as well to which they appear to be agreeable. I spoke with Dr. Salas of hospitalist service who is agreeable to admission. This note was made utilizing voice recognition software. All attempts were made to correct spelling or other errors prior to note completion. However, due to the fast-paced nature of emergency medicine, some errors may still be present. Lab Data Labs: Laboratory Results - last 24 hr 02/20/25 05:10 WBC 7.9 RBC 4.01 L Hgb 11.9 L Hct 38.5 MCV 96.0 MCH 29.7 MCHC 30.9 L RDW Std Deviation 48.0 H RDW Coeff of Dalton 13.4 Plt Count 316 MPV 9.4 Immature Gran % (Auto) 0.300 Neut % (Auto) 66.4 Lymph % (Auto) 16.8 L Archuleta % (Auto) 8.6 Eos % (Auto) 6.2 H Baso % (Auto) 1.7 H Absolute Neuts (auto) 5.2 Absolute Lymphs (auto) 1.32 Nucleated RBC % 0 PT 13.5 INR 1.0 APTT 25.9 Sodium 140 Potassium 4.4 Chloride 105 Carbon Dioxide 27.2 Anion Gap 8 BUN 25 H Creatinine 0.89 Estim Creat Clear Calc 35.22 L Est GFR (MDRD) Non-Af 63 BUN/Creatinine Ratio 28.1 H Glucose 104 H Calcium 9.5 Troponin T High Sens 22 H D Radiography Diagnostic Testing: Clinical Impression(s) from Imaging Studies Brain CT 02/20/25 05:09 IMPRESSION: Interval appearance of ill-defined cortical/subcortical hypodense area in the medial aspects of the right temporal and occipital lobes measuring 7.4 x 2.5 cm, probably acute ischemia in the territory of the right posterior cerebral artery. No associated hemorrhagic changes or midline shift. Findings were discussed with Dr. Tati Rice at 5:28 am EST. Reading Location: [place] [id number] Head/Neck CTA 02/20/25 05:10 IMPRESSION: Complete occlusion of the right posterior cerebral artery at the level of the distal P1 segment, not present on the prior exam. Atherosclerosis without high-grade stenosis in the cervical segments of the internal carotid arteries. I discussed the findings with Dr. Tati Rice in the emergency department at 6 a.m. EST. Reading Location: [place] [address] Chest X-Ray 02/20/25 05:50 IMPRESSION: No evidence for acute abnormality. Reading Location: [place] [id number] Discharge Plan Triage Chief Complaint: Stroke Alert ED Provider: Tati Rice Dx/Rx/DC Orders Clinical Impression: Stroke, History of hemorrhagic cerebrovascular accident (CVA) with residual deficit, Left arm weakness, History of atrial fibrillation Prescriptions: No Action atorvastatin 40 mg tablet 40 mg feeding tube QHS Isosource 1.5 Richard 0.07 gram-1.5 kcal/mL liquid Rx Instructions: 62 ml/hr x 12 hours nocturnal, on at 6pm, off at 6 am aspirin [Aspirin Childrens] 81 mg tablet,chewable 1 tab feeding tube DAILY buspirone 5 mg tablet 5 mg PO BID buspirone 5 mg tablet 5 mg PO QHS melatonin 3 mg tablet 3 mg feeding tube QHS metoprolol tartrate 25 mg Tablet 25 mg feeding tube BID cholecalciferol (vitamin D3) 25 mcg (1,000 unit) Tablet 50 mcg feeding tube DAILY Primary Care Provider: Tasha Deutsch Referrals: Tasha Deutsch, INVENTORY CONTROL SUPERVISOR [Primary Care Provider, Family Practice] Print Language: Azeri
[2025-02-20 07:40] LABS: Troponin T High Sens 2 HR 30 ng/L (<=14)
--- NOTE | 2025-02-20 07:49 | PCM.HP.STD ---
HPI - General General Date of Admission: 02/20/25 Date of Service: 02/20/25 Chief Complaint: Decreased level of consciousness and left arm weakness HPI Narrative BEHZAD HAY, is a 85 F with a history of paroxysmal atrial fibrillation, ischemic CVA in August and subsequent hemorrhagic stroke in October and was transferred to [facility] at that time presented to [facility] ED 02/20/2025 with altered mental status and new left arm weakness with last known well sometime last night. In the ED temp 97.5, heart rate 72, blood pressure 166/105, pulse ox 97% on room air. White count 7.9 with hemoglobin 11.9, platelet count 316, BMP with normal potassium, BUN of 25 and creatinine 0.89, troponin of 22.. CT brain showed ill-defined cortical/subcortical hypodense area in medial aspect of right temporal and occipital lobes probably acute ischemia in the territory of the right [employer] with no hemorrhagic shift or midline shift, CTA head and neck showed complete occlusion of the right posterior cerebral artery at level of distal P1 segment not present on prior exam. [facility] contacted but patient not a candidate for thrombectomy given the occlusion location and patient outside of TNK window so hospitalist contacted for admission. Patient evaluated with her son and [id number] at bedside. The patient had been at [facility] after her hemorrhagic stroke and had tube feeds and was just starting to do some puréed foods, reportedly speech never went back to baseline. Patient completely unable to answer questions or participate in exam, seem to attempt to follow commands with squeezing hand but was unable to actually do so, only 1 time mumbled unintelligibly but otherwise was unable to have any meaningful interaction [facility] Medical History Dyslipidemia HTN (hypertension) Paroxysmal atrial fibrillation Chronic anticoagulation Thoracic kyphosis Cystitis Stroke/cerebrovascular accident CKD (chronic kidney disease) stage 4, GFR 15-29 ml/min History of atrial fibrillation Fe deficiency anemia Osteoarthritis Home Medications Medication Instructions Recorded Last Taken Type atorvastatin 40 mg tablet 40 mg feeding tube QHS cholesterol 10/12/24 Unknown History aspirin 81 mg chewable tablet 1 tab feeding tube DAILY 02/20/25 Unknown History (Aspirin Childrens) buspirone 5 mg tablet 5 mg PO BID 02/20/25 Unknown History buspirone 5 mg tablet 5 mg PO QHS 02/20/25 Unknown History cholecalciferol (vitamin D3) 25 50 mcg feeding tube DAILY 02/20/25 Unknown History mcg (1,000 unit) tablet lactose-reduced food-fiber 0.07 ml 02/20/25 Unknown History gram-1.5 kcal/mL liquid for tube feed (Isosource 1.5 Richard) melatonin 3 mg tablet 3 mg feeding tube QHS insomnia 02/20/25 Unknown History metoprolol tartrate 25 mg tablet 25 mg feeding tube BID 02/20/25 Unknown History Allergy/AdvReac Type Severity Reaction Status Date / Time adhesive tape Allergy Unknown Unknown Verified 02/20/25 05:16 sulfamethoxazole (From Allergy Unknown Unknown Verified 02/20/25 05:16 Bactrim) trimethoprim (From Bactrim) Allergy Unknown Unknown Verified 02/20/25 05:16 nitrofurantoin (From Allergy Rash Verified 02/20/25 05:16 Macrobid) [id number] Reductase AdvReac Unknown Unknown Verified 02/20/25 05:16 Inhibitor Family History Mother Cancer Hypertension CVA (cerebral vascular accident) Father Heart disease CVA (cerebral vascular accident) Brother Ischemic heart disease CVA (cerebral vascular accident) Sister Hypertension Diabetes Surgical History History of right hip replacement History of left hip replacement History of bilateral cataract extraction History of umbilical hernia repair History of esophagogastroduodenoscopy (EGD) History of colonoscopy History of bunionectomy of both great toes Hx of tonsillectomy Social History household members: none housing: condominium Smoking Status: Never smoker alcohol intake: never substance use type: does not use ROS ROS Narrative Unable to obtain ROS secondary to mental status Vital Signs Vital Signs Vital Signs: 02/20/25 05:09 02/20/25 05:13 02/20/25 05:38 Temperature 97.5 F L Temperature Source Temporal Pulse Rate 72 68 73 Respiratory Rate 18 18 25 H Blood Pressure 166/105 H 166/105 H 168/110 H Blood Pressure Mean 125 125 129 Pulse Ox 97 95 94 Oxygen Delivery Method Room Air Room Air Room Air Oxygen Flow Rate (L/min) 02/20/25 05:46 02/20/25 06:09 02/20/25 06:30 Temperature Temperature Source Pulse Rate 70 70 Respiratory Rate 18 17 Blood Pressure 168/110 H 144/90 H Blood Pressure Mean 129 108 Pulse Ox 100 99 Oxygen Delivery Method Room Air Room Air Nasal Cannula Oxygen Flow Rate (L/min) 2 02/20/25 07:00 Temperature 98.3 F Temperature Source Pulse Rate 70 Respiratory Rate 17 Blood Pressure 152/114 H Blood Pressure Mean 126 Pulse Ox 99 Oxygen Delivery Method Oxygen Flow Rate (L/min) Weight Weight: 54 kg Body Mass Index (BMI) 21.7 Physical Exam Narrative General: Patient with eyes closed, unable to answer orientation questions or purposefully interact HEENT: Atraumatic, Eyes: Anicteric, normal conjunctiva, extraocular movements grossly intact Neck: Supple Respiratory: Clear to auscultation bilaterally, normal respiratory effort Cardiovascular: Regular rate and rhythm GI: Soft, nontender, nondistended Extremities: No edema Musculoskeletal: Fidgeting with her extremities Neuro: Patient unable to participate in neuroexam, fidgeting with her extremities but unable to squeeze hands or really do any participation in the neuroexam, mumbled unintelligibly 1 time Skin: No rashes appreciated Psych: Unable to cooperate secondary to mental status Results Lab / Micro Data 02/20/25 05:10 02/20/25 05:10 Labs: Laboratory Results - last 24 hr 02/20/25 05:10: WBC 7.9, RBC 4.01 L, Hgb 11.9 L, Hct 38.5, MCV 96.0, MCH 29.7, MCHC 30.9 L, RDW Std Deviation 48.0 H, RDW Coeff of Dalton 13.4, Plt Count 316, MPV 9.4, Immature Gran % (Auto) 0.300, Neut % (Auto) 66.4, Lymph % (Auto) 16.8 L, Orange % (Auto) 8.6, Eos % (Auto) 6.2 H, Baso % (Auto) 1.7 H, Absolute Neuts (auto) 5.2, Absolute Lymphs (auto) 1.32, Nucleated RBC % 0, PT 13.5, INR 1.0, APTT 25.9, Sodium 140, Potassium 4.4, Chloride 105, Carbon Dioxide 27.2, Anion Gap 8, BUN 25 H, Creatinine 0.89, Estim Creat Clear Calc 35.22 L, Est GFR (MDRD) Non-Af 63, BUN/Creatinine Ratio 28.1 H, Glucose 104 H, Calcium 9.5, Troponin T High Sens 22 H D 02/20/25 07:16: Troponin T Hi Sens 2 Hr 30 H Imaging Radiology Impression Brain CT 02/20/25 05:09 IMPRESSION: Interval appearance of ill-defined cortical/subcortical hypodense area in the medial aspects of the right temporal and occipital lobes measuring 7.4 x 2.5 cm, probably acute ischemia in the territory of the right posterior cerebral artery. No associated hemorrhagic changes or midline shift. Findings were discussed with Dr. Tati Rice at 5:28 am EST. Reading Location: [place] [id number] Head/Neck CTA 02/20/25 05:10 IMPRESSION: Complete occlusion of the right posterior cerebral artery at the level of the distal P1 segment, not present on the prior exam. Atherosclerosis without high-grade stenosis in the cervical segments of the internal carotid arteries. I discussed the findings with Dr. Tati Rice in the emergency department at 6 a.m. EST. Reading Location: [place] [id number] Chest X-Ray 02/20/25 05:50 IMPRESSION: No evidence for acute abnormality. Reading Location: [place] [id number] Assessment & Plan Assessment/Plan (1) Stroke: PLAN: Plan # New left-sided weakness, worsened dysarthria, decreased mental status with right [employer] occlusion at level of distal P1 segment -Admit to tele -CT head w/ c hypodense area in medial aspect of right temporal and occipital lobes secondary to acute ischemia in the right [employer] territory -CTA head and neck with complete occlusion of the right [employer] at the distal level of the P1 segment -MRI ordered -NIH q4hr -asa, statin -Echo -PT/OT/Speech eval -Teleneuro consult ordered -Hold BP medications to allow for permissive hypertension for 24 hours unless SBP greater than 220 or DBP greater than 120 or until stroke is ruled out - Discussed with family at bedside the patient is not a TNK candidate nor a candidate for thrombectomy, given current mental status and the fact that she bled while on Eliquis but then had an occlusion/acute stroke off Eliquis with current significant deficits may want to consider palliative care or hospice depending on what patient's wishes would be. Patient's daughter/MPOA is presently on her way to the hospital, can have further discussion at that time. Discussed with family at bedside that patient does currently have full code on her paperwork from group home so this will be placed in the computer until further determination is made with [facility] regarding patient's wishes # History of hemorrhagic and ischemic CVAs - Ischemic CVA in August and then hemorrhagic CVA in October - Patient still has PEG tube and undergoes tube feeds, will continue # History of anxiety - On tube feeds #DVT ppx: SCDs Angela Salas MD Time spent in the patient's overall evaluation, decision-making process, review of diagnostic data, adjustment of management, discussion with other providers, nursing and ancillary staff involved in patient's care documentation, 56 Minutes Charges/Coding Visit Charges Inpatient E&M: 64787 Init Hosp L2
--- OUTSIDE RECORDS SUMMARY | 2025-02-20 08:04 | XMS RPT_ITS | CCD ---
Author Organization [facility] Care Team Providers Care Potato Chip Processing Supervisor Name Role Phone TAMIA QUEZADA ([place]) Unavailable Unavailabl e ILYA WEBBER Unavailable Unavailable Suresh Edwards MD Unavailable Lamonte Toney MD Unavailable Francis De La O MD Unavailable Jose G Harrington PA-C Primary Care Provider Lamonte Toney MD Unavailable [phone] Francis De La O MD Unavailable Jose G Harrington PA-C Primary Care Provider Jose G Harrington PA-C Primary Care Provider Haagen POURER.Breann WALSH Unavailable Suppan POURER.DIRECTOR HR COMMUNICATIONS, Tasha A Unavailable Suppan POURER.DIRECTOR HR COMMUNICATIONS, Tasha A Primary Care Provi edy Suppan POURER.DIRECTOR HR COMMUNICATIONS, Tasha A Unavailable Suppan POURER.DIRECTOR HR COMMUNICATIONS, Tasha A Primary Care Provi edy Dr. Ricki Reyes MD Emergency Provider Suppan FIELD SEISMOLOGIST, Tasha Primary Care Provider Dr. Fawad Cordon DO Emergency Provider [phone] Dr. Mara Mar DO Admit Provider Dr. Mara Mar DO Attending Provider Eric WILLIS, Dr. Robison Attending Provider [phone] Enrique WILLIS, Harley Other Provider Unavailable Bong [...] Provider Yaakov WILLIS, Dr. Daly Other Provider [phone] Santiago WILLIS, Dr. Mosley Other Provider Fatoumata WILLIS, Dr. Ordaz Other Provider Zaid WILLIS, Dr. Nunez Other Provider Unavailable Sven WILLIS, Luc Other Provider Unavailable Gordon WILLIS, Dr. Harley Attending Provider Zaid GOMEZ, Dr. Terry Other Provider Behzad Dorado Unavailable Suppan POURER.DIRECTOR HR COMMUNICATIONS, Tasha A Unavailable [phone] Sementi DO, Dr. Behzad Escalante Admit Provider Semenalexus DO, Dr. Behzad Escalante Attending Provide r Sementi DO, Dr. Behzad Escalante Other Provider Lizzette CANCHOLA, Mack Unavailable [phone] Suppan FIELD SEISMOLOGIST, Tasha Referring Provider Lakshmi Raphael Attending Provider Dr. Mihai Woods DO Emergency Provider Lizzette CANCHOLA, Mack Unavailable [facility] Cardiac Respiration, Other Prim malcom Care Provider [...] SUPPAN, TASHA A Primary Care Unavailable SUPPAN, TASAH A Referring Unavailable SUPPAN, TASHA A Primary Care Unavailable SUPPAN, TASHA A Attending Unavailable SUPPAN, TASHA A Primary Care Unavailable Suppan, Tasha Primary Care Unavailable Gudla KEVAN Cielo Attending Unavailable Suppan, Tasha Primary Care Unavailable Gudla OLS Cielo Attending Unavailable Suppan, Tasha Primary Care Unavailable Gudla KEVAN, Cielo Attending Unavailable Suppan, Tasha Primary Care Unavailable Behzad Dorado Consulting Unavaila [...] Consulting Unavailable Cary Maureen Consulting Unavailable Reuben, Efraín Consulting Unavailable Lc Salazar Consulting Unavailable [...] Adhesive Tape Substance Allergy 08-27-19 12 Rash [facility] NITROFURANTOIN, MACROCRYSTALS / Nitrofurantoin, Monohydrate (1 source) NITROFURANTOIN, MACROCRYSTALS / Nitrofurantoin, Monohydrate Drug Allergy 09-26-19 Rash [facility] Sulfamethoxazole / Trimethoprim (1 source) Sulfamethoxazole / Trimethoprim Drug Allergy 09-26-19 [facility] Work Phone: (20 sources) Adhesive Tape; Translations: [ADHESIVE TAPE (ROSINS)] Propensity to adverse reactions (disorder) 08-27-19 12 Rash [facility] (20 sources) Hmg-Coa Reductase Inhibitors (Statins); Translations: [OMBVDGB-OIG-FNY REDUCTASE INHIBITORS] Propensity to adverse reactions to drug (disorder) 10-07-19 15 Intolerance [facility] (1 source) UTI MEDICATION drug allergy 06-07-19 rash, itching [facility] Work Phone: (20 sources) NITROFURANTOIN, MACROCRYSTALS / Nitrofurantoin, Monohydrate; Translations: [NITROFURANTOIN MONOHYD/M-CRYST] Drug Allergy 09-26-19 [facility] Work Phone: (20 sources) Sulfamethoxazole / Trimethoprim; Translations: [SULFAMETHOXAZOLE-T RIMETHOPRIM] Drug Allergy 09-26-19 [facility] Work Phone: (7 sources) Nitrofurantoin Drug Allergy 04-07-20 Rash [facility] (3 sources) Adhesive Tape; Translations: [adhesive tape] Allergy to substance 10-13-19 Unknown [facility] (2 sources) Sulfamethoxazole Drug Allergy 10-13-19 Unknown [facility] (2 sources) Trimethoprim Drug Allergy 10-13-19 [facility] (2 sources) Cdjises-Lfc-Hun Reductase Inhibitor Propensity to adverse reactions 10-13-19 Unknown [facility] (1 source) Nitrofurantoin Drug Allergy 10-13-19 [facility] (1 source) Sulfamethoxazole Drug Allergy 10-13-19 [facility] (1 source) Trimethoprim Drug Allergy 10-13-19 [facility] (1 source) Jtuvjtp-Uwh-Szp Reductase Inhibitor Drug allergy (disorder) 10-13-19 [facility] Medications Current Medications Medication Drug Class(es) [...] Start: 08-15-2023 take 2 tablets by mo [facility] every twelve hours as needed for headache [...] Active EQ ACETAMINOPHEN 500 MG TABS acetaminophen [id number] Gali Patrick AT Comment on above: Take [...] 500 MG CAPS ascorbic acid (vitamin c) [id number] Gali Patrick AT Comment on above: Take [...] Comment on above: Take 1 tablet by [facility] twice daily. Pt reports magnesium calcium citrate [...] ( 5000 UT) TABS cholecalciferol (vitamin d3) [id number] Gali Patrick AT Comment on above: Take [...] aily. docusate sodium 50 mg / sennosides, detention 8.6 mg oral tablet (9 sources) Start: [...] 325 (65 Fe) MG TABS ferrous sulfate [id number] Gali Andreranjit AT Comment on above: Take [...] CAPS 1 capsule once a day garlic [id number] Gali Patrick AT Comment on above: Take [...] Active PROBIOTIC (LACTO BACILLUS) CAPS lactobacillus acidophilus [id number] Gali Patrick AT Comment on above: Take [...] on above: Take 1 capsule by mo [facility] once daily. lisinopril 10 mg oral tablet [...] Comment on above: Take 1 tablet by [facility] once daily. Multivitamin preparation (1 source) MULTI-VITAMINS T ABS 1 once a day multivitamin [id number] Gali Patrick AT 200 ml niCARdipine hydrochloride [...] once a day omega-3 fatty acids-fish oil [id number] Gali RAMIREZ omeprazole 20 mg delayed release oral capsule (4 sources) Proton Pump Inhibitor Start: 1 End: 2 take 1 capsule by mouth once daily before breakfast omeprazole (PRILOSEC) 20 mg capsule Take 1 capsule by mouth daily before breakfast. 1/2 hr before meal. 90 capsule 1 02/12/2021 10/29/2021 Discontinued Comment on above: Take 1 capsule by mo [facility] daily before breakfast. 1/2 hr before meal. perflutren lipid microspheres 1.3 mL in NaCl (PF) 0.9% 10 mL injection (DEFINITY) (20 sources) Start: 2 End: perflutren lipid microspheres 1.3 mL in NaCl (PF) 0.9% 10 mL injection (DEFINITY) polyethylene glycol 3350 02812 mg powder for oral solution (3 sources) Osmotic Laxative Start: End: Start: 10-25-2024 End: 11-02-2024 QUEtiapine 25 mg oral tablet (16 sources) Atypical Antipsychotic Start: 11-16-2024 End: 11-16-2024 Start: 11-14-2024 End: 11-14-2024 Start: 11-14-2024 End: 11-14-2024 Start: 11-05-2024 End: 11-05-2024 Start: 11-01-2024 End: 11-12-2024 Start: 10-28-2024 End: 11-03-2024 Start: 10-22-2024 End: 10-26-2024 Start: 10-20-2024 End: 10-20-2024 sennosides, detention 8.6 mg oral tablet (3 sources) Start: [...] capsule once a day cyanocobalamin (vitamin b-12) [id number] Gali Patrick AT Comment on above: Dissolve 1 tablet un edy the tongue once daily. vitamin e 180 mg oral capsule (4 sources) Start: 08-15-2016 End: 10-29-2021 take 1 capsule by mouth once daily alpha tocopheryl acetate (VITAMIN E) 400 unit capsule Take 1 capsule by mouth once daily. 0 08/15/2016 10/29/2021 Discontinued (Discontinued by Patient) Comment on above: Take 1 capsule by [facility] once daily. Zinc (20 sources) Start: 09-22-2024 [...] sources) Long-term current use of anticoagulant; Translations: [oysterman (current) use of anticoagulants] 08-23-2024 Episodic Other [...] Translations: [Chronic renal insufficiency, stage 3 (moderate) (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 Appropriately treated with antibiotics prior to admission to rehab on 08/22/24. Results Test Name Value Interpretation Reference Range Facility Basic Metabolic Profile (BMP )on 01-25-2025 BUN/CRE 27.0 RATIO High 01-31 [facility] Comment on above: Order Comment: 101.1 Performed By: #### L 500.2500, L100.0100 ####[facility] [address] [place], [address] Calcium [Mass/Vol] 9.5 mg/dL Normal 7.6-11.0 [facility] Comment on above: Order Comment: 101.1 Performed By: #### L 500.2500, L100.0100 ####[facility] [address] [place], [address] Chloride [Moles/Vol] 103 mmol/L Normal 98-108 [facility] Comment on above: Order Comment: 101.1 Performed By: #### L 500.2500, L100.0100 ####[facility] [address] [place], [address] CO2 [Moles/Vol] 26.6 mmol/L Normal 21.0-32.0 [facility] Comment on above: Order Comment: 101.1 Performed By: #### L 500.2500, L100.0100 ####[facility] [address] [place], [address] Creatinine [Mass/Vol] 0.74 mg/dL Normal 0.70-1.20 [facility] Comment on above: Order Comment: 101.1 Performed By: #### L 500.2500, L100.0100 ####[facility] [address] [place], [address] GAP 10 Normal 5-15 [facility] Comment on above: Order Comment: 101.1 Performed By: #### L 500.2500, L100.0100 ####[facility] [address] [place], [address] GFR/1.73 sq M.predicted among non-blacks MDRD (S/P/Bld) [Vol rate/Area] 78 mL/min/{1.73_m2} Normal >60 [facility] Comment on above: Order Comment: 101.1 Result Comment: mL/m in/1.73m2 CKD-EPI Creatinine Equation (2020) Performed By: #### L 500.2500, L100.0100 ####[facility] [address] [place], [address] Glucose [Mass/Vol] 105 mg/dL High 70-99 [facility] Comment on above: Order Comment: 101.1 Performed By: #### L 500.2500, L100.0100 ####[facility] [address] [place], [address] Potassium [Moles/Vol] 4.2 mmol/L Normal 3.3-5.1 [facility] Comment on above: Order Comment: 101.1 Performed By: #### L 500.2500, L100.0100 ####[facility] [address] [place], [address] Sodium [Moles/Vol] 140 mmol/L Normal 133-145 [facility] Comment on above: Order Comment: 101.1 Performed By: #### L 500.2500, L100.0100 ####[facility] [address] [place], [address] Urea nitrogen [Mass/Vol] 20 mg/dL High 4-19 [facility] Comment on above: Order Comment: 101.1 Performed By: #### L 500.2500, L100.0100 ####[facility] [address] [place], [address] CBC W/Diff, Automatedon 10- Absolute Lymph 0.96 X10 3/uL Normal 0.83-4.51 [facility] Comment on above: Order Comment: 101.1 Performed By: #### L 500.2500, L100.0100 ####[facility] [address] [place], [address] Absolute Neut 5.3 X10 3/uL Normal 2.0-7.7 [facility] Comment on above: Order Comment: 101.1 Performed By: #### L 500.2500, L100.0100 ####[facility] [address] [place], [address] Basophils/100 WBC (Bld) 1.1 % High 0-1 [facility] Comment on above: Order Comment: 101.1 Performed By: #### L 500.2500, L100.0100 ####[facility] [address] [place], [address] Eosinophils/100 WBC (Bld) 6.6 % High 0-5 [facility] Comment on above: Order Comment: 101.1 Performed By: #### L 500.2500, L100.0100 ####[facility] [address] [place], [address] Erythrocyte distribution width (RBC) [Ratio] 13.2 % Normal 11.6-14.6 [facility] Comment on above: Order Comment: 101.1 Performed By: #### L 500.2500, L100.0100 ####[facility] [address] [place], [address] Hematocrit (Bld) [Volume fraction] 34.3 % Low 37-47 [facility] Comment on above: Order Comment: 101.1 Performed By: #### L 500.2500, L100.0100 ####[facility] [address] [place], [address] Hemoglobin (Bld) [Mass/Vol] 10.7 g/dL Low 12.0-15.0 [facility] Comment on above: Order Comment: 101.1 Performed By: #### L 500.2500, L100.0100 ####[facility] [address] [place], [address] IG% 0.300 Normal 0.0-0.9 [facility] Comment on above: Order Comment: 101.1 Result Comment: IG% - Immature Granulocytes (promyelocytes, myelocytes andmetamyelocytes) > 1% indicates that a LEFT SHIFT is Present. Performed By: #### L 500.2500, L100.0100 ####[facility] [address] [place], [address] Lymphocytes/100 WBC (Bld) 12.9 % Low 19-41 [facility] Comment on above: Order Comment: 101.1 Performed By: #### L 500.2500, L100.0100 ####[facility] [address] [place], [address] MCH (RBC) [Entitic mass] 30.7 pg Normal 27.0-32.0 [facility] Comment on above: Order Comment: 101.1 Performed By: #### L 500.2500, L100.0100 ####[facility] [address] [place], [address] MCHC (RBC) [Mass/Vol] 31.2 g/dL Low 32-36 [facility] Comment on above: Order Comment: 101.1 Performed By: #### L 500.2500, L100.0100 ####[facility] [address] [place], [address] MCV (RBC) [Entitic vol] 98.6 fL Normal 81-99 [facility] Comment on above: Order Comment: 101.1 Performed By: #### L 500.2500, L100.0100 ####[facility] [address] [place], [address] Monocytes/100 WBC (Bld) 8.0 % Normal 0-10 [facility] Comment on above: Order Comment: 101.1 Performed By: #### L 500.2500, L100.0100 ####[facility] [address] [place], [address] Neutrophils/100 WBC (Bld) 71.1 % High 47-70 [facility] Comment on above: Order Comment: 101.1 Performed By: #### L 500.2500, L100.0100 ####[facility] [address] [place], [address] Nucleated RBC (Bld) [#/Vol] 0 10*3/uL Normal 0-5 [facility] Comment on above: Order Comment: 101.1 Performed By: #### L 500.2500, L100.0100 ####[facility] [address] [place], [address] Platelet mean volume (Bld) [Entitic vol] 9.8 fL Normal 6.2-12.0 [facility] Comment on above: Order Comment: 101.1 Performed By: #### L 500.2500, L100.0100 ####[facility] [address] [place], [address] Platelets (Bld) [#/Vol] 314 10*3/uL Normal 150-450 [facility] Comment on above: Order Comment: 101.1 Performed By: #### L 500.2500, L100.0100 ####[facility] [address] [place], [address] RBC (Bld) [#/Vol] 3.48 10*6/uL Low 4.2-5.4 [facility] Comment on above: Order Comment: 101.1 Performed By: #### L 500.2500, L100.0100 ####[facility] [address] [place], [address] RDW SD 46.8 fl High 35.1-43.9 [facility] Comment on above: Order Comment: 101.1 Performed By: #### L 500.2500, L100.0100 ####[facility] [address] [place], [address] WBC (Bld) [#/Vol] 7.5 10*3/uL Normal 4.4-11.0 [facility] Comment on above: Order Comment: 101.1 Performed By: #### L 500.2500, L100.0100 ####[facility] [address] [place], [address] Basic Metabolic Profile (BMP )on 01-13-2025 BUN/CRE 33.4 RATIO High 10-20 [facility] Comment on above: Order Comment: 101.1 Performed By: #### L 100.0500, L500.2500 ####[facility] [address] [place], [address] Calcium [Mass/Vol] 9.6 mg/dL Normal 7.6-11.0 [facility] Comment on above: Order Comment: 101.1 Performed By: #### L 100.0500, L500.2500 ####[facility] [address] [place], [address] Chloride [Moles/Vol] 106 mmol/L Normal 98-108 [facility] Comment on above: Order Comment: 101.1 Performed By: #### L 100.0500, L500.2500 ####[facility] [address] [place], [address] CO2 [Moles/Vol] 25.6 mmol/L Normal 21.0-32.0 [facility] Comment on above: Order Comment: 101.1 Performed By: #### L 100.0500, L500.2500 ####[facility] [address] [place], [address] Creatinine [Mass/Vol] 0.75 mg/dL Normal 0.70-1.20 [facility] Comment on above: Order Comment: 101.1 Performed By: #### L 100.0500, L500.2500 ####[facility] [address] [place], [address] GAP 11 Normal 5-15 [facility] Comment on above: Order Comment: 101.1 Performed By: #### L 100.0500, L500.2500 ####[facility] [address] [place], [address] GFR/1.73 sq M.predicted among non-blacks MDRD (S/P/Bld) [Vol rate/Area] 77 mL/min/{1.73_m2} Normal >60 [facility] Comment on above: Order Comment: 101.1 Result Comment: mL/m in/1.73m2 CKD-EPI Creatinine Equation (2020) Performed By: #### L 100.0500, L500.2500 ####[facility] [address] [place], [address] Glucose [Mass/Vol] 102 mg/dL High 70-99 [facility] Comment on above: Order Comment: 101.1 Performed By: #### L 100.0500, L500.2500 ####[facility] [address] [place], [address] Potassium [Moles/Vol] 4.4 mmol/L Normal 3.3-5.1 [facility] Comment on above: Order Comment: 101.1 Performed By: #### L 100.0500, L500.2500 ####[facility] [address] [place], [address] Sodium [Moles/Vol] 142 mmol/L Normal 133-145 [facility] Comment on above: Order Comment: 101.1 Performed By: #### L 100.0500, L500.2500 ####[facility] [address] [place], [address] Urea nitrogen [Mass/Vol] 25 mg/dL High 4-19 [facility] Comment on above: Order Comment: 101.1 Performed By: #### L 100.0500, L500.2500 ####[facility] [address] [place], [address] CBC-Complete Blood Cnt No Di ffon 01-13-2025 Erythrocyte distribution width (RBC) [Ratio] 13.8 % Normal 11.6-14.6 [facility] Comment on above: Order Comment: 101.1 Performed By: #### L 100.0500, L500.2500 ####[facility] [address] [place], [address] Hematocrit (Bld) [Volume fraction] 33.1 % Low 37-47 [facility] Comment on above: Order Comment: 101.1 Performed By: #### L 100.0500, L500.2500 ####[facility] [address] [place], [address] Hemoglobin (Bld) [Mass/Vol] 10.2 g/dL Low 12.0-15.0 [facility] Comment on above: Order Comment: 101.1 Performed By: #### L 100.0500, L500.2500 ####[facility] [address] [place], [address] MCH (RBC) [Entitic mass] 30.4 pg Normal 27.0-32.0 [facility] Comment on above: Order Comment: 101.1 Performed By: #### L 100.0500, L500.2500 ####[facility] [address] [place], [address] MCHC (RBC) [Mass/Vol] 30.8 g/dL Low 32-36 [facility] Comment on above: Order Comment: 101.1 Performed By: #### L 100.0500, L500.2500 ####[facility] [address] [place], [address] MCV (RBC) [Entitic vol] 98.8 fL Normal 81-99 [facility] Comment on above: Order Comment: 101.1 Performed By: #### L 100.0500, L500.2500 ####[facility] [address] [place], [address] Platelet mean volume (Bld) [Entitic vol] 9.6 fL Normal 6.2-12.0 [facility] Comment on above: Order Comment: 101.1 Performed By: #### L 100.0500, L500.2500 ####[facility] [address] [place], [address] Platelets (Bld) [#/Vol] 343 10*3/uL Normal 150-450 [facility] Comment on above: Order Comment: 101.1 Performed By: #### L 100.0500, L500.2500 ####[facility] [address] [place], [address] RBC (Bld) [#/Vol] 3.35 10*6/uL Low 4.2-5.4 [facility] Comment on above: Order Comment: 101.1 Performed By: #### L 100.0500, L500.2500 ####[facility] [address] [place], [address] RDW SD 49.9 fl High 35.1-43.9 [facility] Comment on above: Order Comment: 101.1 Performed By: #### L 100.0500, L500.2500 ####[facility] [address] [place], [address] WBC (Bld) [#/Vol] 6.5 10*3/uL Normal 4.4-11.0 [facility] Comment on above: Order Comment: 101.1 Performed By: #### L 100.0500, L500.2500 ####[facility] [address] [place], [address] Basic Metabolic Profile (BMP )on 12-09-2024 BUN/CRE 35.0 RATIO High 10-20 [facility] Comment on above: Order Comment: 101.1 Performed By: #### L 100.0500, L500.2500 ####[facility] [address] [place], [address] Calcium [Mass/Vol] 9.1 mg/dL Normal 7.6-11.0 [facility] Comment on above: Order Comment: 101.1 Performed By: #### L 100.0500, L500.2500 ####[facility] [address] [place], [address] Chloride [Moles/Vol] 105 mmol/L Normal 98-108 [facility] Comment on above: Order Comment: 101.1 Performed By: #### L 100.0500, L500.2500 ####[facility] [address] [place], [address] CO2 [Moles/Vol] 25.3 mmol/L Normal 21.0-32.0 [facility] Comment on above: Order Comment: 101.1 Performed By: #### L 100.0500, L500.2500 ####[facility] [address] [place], [address] Creatinine [Mass/Vol] 0.76 mg/dL Normal 0.70-1.20 [facility] Comment on above: Order Comment: 101.1 Performed By: #### L 100.0500, L500.2500 ####[facility] [address] [place], [address] GAP 8 Normal 5-15 [facility] Comment on above: Order Comment: 101.1 Performed By: #### L 100.0500, L500.2500 ####[facility] [address] [place], [address] GFR/1.73 sq M.predicted among non-blacks MDRD (S/P/Bld) [Vol rate/Area] 76 mL/min/{1.73_m2} Normal >60 [facility] Comment on above: Order Comment: 101.1 Result Comment: mL/m in/1.73m2 CKD-EPI Creatinine Equation (2020) Performed By: #### L 100.0500, L500.2500 ####[facility] [address] [place], [address] Glucose [Mass/Vol] 94 mg/dL Normal 70-99 [facility] Comment on above: Order Comment: 101.1 Performed By: #### L 100.0500, L500.2500 ####[facility] [address] [place], [address] Potassium [Moles/Vol] 4.3 mmol/L Normal 3.3-5.1 [facility] Comment on above: Order Comment: 101.1 Performed By: #### L 100.0500, L500.2500 ####[facility] [address] [place], [address] Sodium [Moles/Vol] 138 mmol/L Normal 133-145 [facility] Comment on above: Order Comment: 101.1 Performed By: #### L 100.0500, L500.2500 ####[facility] [address] [place], [address] Urea nitrogen [Mass/Vol] 27 mg/dL High 4-19 [facility] Comment on above: Order Comment: 101.1 Performed By: #### L 100.0500, L500.2500 ####[facility] [address] [place], [address] CBC-Complete Blood Cnt No Di ffon 12-09-2024 Erythrocyte distribution width (RBC) [Ratio] 13.3 % Normal 11.6-14.6 [facility] Comment on above: Order Comment: 101.1 Performed By: #### L 100.0500, L500.2500 ####[facility] [address] [place], [address] Hematocrit (Bld) [Volume fraction] 32.4 % Low 37-47 [facility] Comment on above: Order Comment: 101.1 Performed By: #### L 100.0500, L500.2500 ####[facility] [address] [place], [address] Hemoglobin (Bld) [Mass/Vol] 10.4 g/dL Low 12.0-15.0 [facility] Comment on above: Order Comment: 101.1 Performed By: #### L 100.0500, L500.2500 ####[facility] [address] [place], [address] MCH (RBC) [Entitic mass] 31.0 pg Normal 27.0-32.0 [facility] Comment on above: Order Comment: 101.1 Performed By: #### L 100.0500, L500.2500 ####[facility] [address] [place], [address] MCHC (RBC) [Mass/Vol] 32.1 g/dL Normal 32-36 [facility] Comment on above: Order Comment: 101.1 Performed By: #### L 100.0500, L500.2500 ####[facility] [address] [place], [address] MCV (RBC) [Entitic vol] 96.7 fL Normal 81-99 [facility] Comment on above: Order Comment: 101.1 Performed By: #### L 100.0500, L500.2500 ####[facility] [address] [place], [address] Platelet mean volume (Bld) [Entitic vol] 9.7 fL Normal 6.2-12.0 [facility] Comment on above: Order Comment: 101.1 Performed By: #### L 100.0500, L500.2500 ####[facility] [address] [place], [address] Platelets (Bld) [#/Vol] 302 10*3/uL Normal 150-450 [facility] Comment on above: Order Comment: 101.1 Performed By: #### L 100.0500, L500.2500 ####[facility] [address] [place], [address] RBC (Bld) [#/Vol] 3.35 10*6/uL Low 4.2-5.4 [facility] Comment on above: Order Comment: 101.1 Performed By: #### L 100.0500, L500.2500 ####[facility] [address] [place], [address] RDW SD 47.4 fl High 35.1-43.9 [facility] Comment on above: Order Comment: 101.1 Performed By: #### L 100.0500, L500.2500 ####[facility] [address] [place], [address] WBC (Bld) [#/Vol] 7.1 10*3/uL Normal 4.4-11.0 [facility] Comment on above: Order Comment: 101.1 Performed By: #### L 100.0500, L500.2500 ####[facility] [address] [place], [address] Basic Metabolic Profile (BMP )on 11-30-2024 BUN/CRE 31.0 RATIO High 10-20 [facility] Comment on above: Order Comment: 108.1 Performed By: #### L 500.2500, L100.0100, L501.5200 ####[facility] [address] [place], [address] Calcium [Mass/Vol] 9.7 mg/dL Normal 7.6-11.0 [facility] Comment on above: Order Comment: 108.1 Performed By: #### L 500.2500, L100.0100, L501.5200 ####[facility] [address] [place], [address] Chloride [Moles/Vol] 104 mmol/L Normal 98-108 [facility] Comment on above: Order Comment: 108.1 Performed By: #### L 500.2500, L100.0100, L501.5200 ####[facility] [address] [place], [address] CO2 [Moles/Vol] 27.6 mmol/L Normal 21.0-32.0 [facility] Comment on above: Order Comment: 108.1 Performed By: #### L 500.2500, L100.0100, L501.5200 ####[facility] [address] [place], [address] Creatinine [Mass/Vol] 0.76 mg/dL Normal 0.70-1.20 [facility] Comment on above: Order Comment: 108.1 Performed By: #### L 500.2500, L100.0100, L501.5200 ####[facility] [address] [place], [address] GAP 10 Normal 5-15 [facility] Comment on above: Order Comment: 108.1 Performed By: #### L 500.2500, L100.0100, L501.5200 ####[facility] [address] [place], [address] GFR/1.73 sq M.predicted among non-blacks MDRD (S/P/Bld) [Vol rate/Area] 76 mL/min/{1.73_m2} Normal >60 [facility] Comment on above: Order Comment: 108.1 Result Comment: mL/m in/1.73m2 CKD-EPI Creatinine Equation (2020) Performed By: #### L 500.2500, L100.0100, L501.5200 ####[facility] [address] [place], [address] Glucose [Mass/Vol] 102 mg/dL High 70-99 [facility] Comment on above: Order Comment: 108.1 Performed By: #### L 500.2500, L100.0100, L501.5200 ####[facility] [address] [place], [address] Potassium [Moles/Vol] 4.3 mmol/L Normal 3.3-5.1 [facility] Comment on above: Order Comment: 108.1 Performed By: #### L 500.2500, L100.0100, L501.5200 ####[facility] [address] [place], [address] Sodium [Moles/Vol] 141 mmol/L Normal 133-145 [facility] Comment on above: Order Comment: 108.1 Performed By: #### L 500.2500, L100.0100, L501.5200 ####[facility] [address] [place], [address] Urea nitrogen [Mass/Vol] 24 mg/dL High 4-19 [facility] Comment on above: Order Comment: 108.1 Performed By: #### L 500.2500, L100.0100, L501.5200 ####[facility] [address] [place], [address] CBC W/Diff, Automatedon 08- Absolute Lymph 1.86 X10 3/uL Normal 0.83-4.51 [facility] Comment on above: Order Comment: 108.1 Performed By: #### L 500.2500, L100.0100, L501.5200 ####[facility] [address] [place], [address] Absolute Neut 3.3 X10 3/uL Normal 2.0-7.7 [facility] Comment on above: Order Comment: 108.1 Performed By: #### L 500.2500, L100.0100, L501.5200 ####[facility] [address] [place], [address] Basophils/100 WBC (Bld) 1.7 % High 0-1 [facility] Comment on above: Order Comment: 108.1 Performed By: #### L 500.2500, L100.0100, L501.5200 ####[facility] [address] [place], [address] Eosinophils/100 WBC (Bld) 10.4 % High 0-5 [facility] Comment on above: Order Comment: 108.1 Performed By: #### L 500.2500, L100.0100, L501.5200 ####[facility] [address] [place], [address] Erythrocyte distribution width (RBC) [Ratio] 13.2 % Normal 11.6-14.6 [facility] Comment on above: Order Comment: 108.1 Performed By: #### L 500.2500, L100.0100, L501.5200 ####[facility] [address] [place], [address] Hematocrit (Bld) [Volume fraction] 36.3 % Low 37-47 [facility] Comment on above: Order Comment: 108.1 Performed By: #### L 500.2500, L100.0100, L501.5200 ####[facility] [address] [place], [address] Hemoglobin (Bld) [Mass/Vol] 11.6 g/dL Low 12.0-15.0 [facility] Comment on above: Order Comment: 108.1 Performed By: #### L 500.2500, L100.0100, L501.5200 ####[facility] [address] [place], [address] IG% 0.600 Normal 0.0-0.9 [facility] Comment on above: Order Comment: 108.1 Result Comment: IG% - Immature Granulocytes (promyelocytes, myelocytes andmetamyelocytes) > 1% indicates that a LEFT SHIFT is Present. Performed By: #### L 500.2500, L100.0100, L501.5200 ####[facility] [address] [place], [address] Lymphocytes/100 WBC (Bld) 28.1 % Normal 19-41 [facility] Comment on above: Order Comment: 108.1 Performed By: #### L 500.2500, L100.0100, L501.5200 ####[facility] [address] [place], [address] MCH (RBC) [Entitic mass] 31.4 pg Normal 27.0-32.0 [facility] Comment on above: Order Comment: 108.1 Performed By: #### L 500.2500, L100.0100, L501.5200 ####[facility] [address] [place], [address] MCHC (RBC) [Mass/Vol] 32.0 g/dL Normal 32-36 [facility] Comment on above: Order Comment: 108.1 Performed By: #### L 500.2500, L100.0100, L501.5200 ####[facility] [address] [place], [address] MCV (RBC) [Entitic vol] 98.1 fL Normal 81-99 [facility] Comment on above: Order Comment: 108.1 Performed By: #### L 500.2500, L100.0100, L501.5200 ####[facility] [address] [place], [address] Monocytes/100 WBC (Bld) 9.0 % Normal 0-10 [facility] Comment on above: Order Comment: 108.1 Performed By: #### L 500.2500, L100.0100, L501.5200 ####[facility] [address] [place], [address] Neutrophils/100 WBC (Bld) 50.2 % Normal 47-70 [facility] Comment on above: Order Comment: 108.1 Performed By: #### L 500.2500, L100.0100, L501.5200 ####[facility] [address] [place], [address] Nucleated RBC (Bld) [#/Vol] 0 10*3/uL Normal 0-5 [facility] Comment on above: Order Comment: 108.1 Performed By: #### L 500.2500, L100.0100, L501.5200 ####[facility] [address] [place], [address] Platelet mean volume (Bld) [Entitic vol] 9.7 fL Normal 6.2-12.0 [facility] Comment on above: Order Comment: 108.1 Performed By: #### L 500.2500, L100.0100, L501.5200 ####[facility] [address] [place], [address] Platelets (Bld) [#/Vol] 349 10*3/uL Normal 150-450 [facility] Comment on above: Order Comment: 108.1 Performed By: #### L 500.2500, L100.0100, L501.5200 ####[facility] [address] [place], [address] RBC (Bld) [#/Vol] 3.70 10*6/uL Low 4.2-5.4 [facility] Comment on above: Order Comment: 108.1 Performed By: #### L 500.2500, L100.0100, L501.5200 ####[facility] [address] [place], [address] RDW SD 47.2 fl High 35.1-43.9 [facility] Comment on above: Order Comment: 108.1 Performed By: #### L 500.2500, L100.0100, L501.5200 ####[facility] [address] [place], [address] WBC (Bld) [#/Vol] 6.6 10*3/uL Normal 4.4-11.0 [facility] Comment on above: Order Comment: 108.1 Performed By: #### L 500.2500, L100.0100, L501.5200 ####[facility] [address] [place], [address] Magnesiumon 11-30-2024 Magnesium [Mass/Vol] 2.4 mg/dL High 1.5-2.2 [facility] Comment on above: Order Comment: 108.1 Performed By: #### L 500.2500, L100.0100, L501.5200 ####[facility] [address] [place], [address] Basic Metabolic Profile (BMP )on 11-23-2024 BUN/CRE 32.0 RATIO High 10-20 [facility] Comment on above: Order Comment: 108MA GA Performed By: #### L 506.1001, L500.2500, L100.0100 ####[facility] [address] [place], [address] Calcium [Mass/Vol] 9.6 mg/dL Normal 7.6-11.0 [facility] Comment on above: Order Comment: 108MA GA Performed By: #### L 506.1001, L500.2500, L100.0100 ####[facility] [address] [place], [address] Chloride [Moles/Vol] 102 mmol/L Normal 98-108 [facility] Comment on above: Order Comment: 108MA GA Performed By: #### L 506.1001, L500.2500, L100.0100 ####[facility] [address] [place], [address] CO2 [Moles/Vol] 25.8 mmol/L Normal 21.0-32.0 [facility] Comment on above: Order Comment: 108MA GA Performed By: #### L 506.1001, L500.2500, L100.0100 ####[facility] [address] [place], [address] Creatinine [Mass/Vol] 1.00 mg/dL Normal 0.70-1.20 [facility] Comment on above: Order Comment: 108MA GA Performed By: #### L 506.1001, L500.2500, L100.0100 ####[facility] [address] [place], [address] GAP 9 Normal 5-15 [facility] Comment on above: Order Comment: 108MA GA Performed By: #### L 506.1001, L500.2500, L100.0100 ####[facility] [address] [place], [address] GFR/1.73 sq M.predicted among non-blacks MDRD (S/P/Bld) [Vol rate/Area] 55 mL/min/{1.73_m2} Low >60 [facility] Comment on above: Order Comment: 108MA GA Result Comment: mL/m in/1.73m2 CKD-EPI Creatinine Equation (2020) Performed By: #### L 506.1001, L500.2500, L100.0100 ####[facility] [address] [place], [address] Glucose [Mass/Vol] 118 mg/dL High 70-99 [facility] Comment on above: Order Comment: 108MA GA Performed By: #### L 506.1001, L500.2500, L100.0100 ####[facility] [address] [place], [address] Potassium [Moles/Vol] 4.4 mmol/L Normal 3.3-5.1 [facility] Comment on above: Order Comment: 108MA GA Performed By: #### L 506.1001, L500.2500, L100.0100 ####[facility] [address] [place], [address] Sodium [Moles/Vol] 137 mmol/L Normal 133-145 [facility] Comment on above: Order Comment: 108MA GA Performed By: #### L 506.1001, L500.2500, L100.0100 ####[facility] [address] [place], [address] Urea nitrogen [Mass/Vol] 32 mg/dL High 4-19 [facility] Comment on above: Order Comment: 108MA GA Performed By: #### L 506.1001, L500.2500, L100.0100 ####[facility] [address] [place], [address] CBC W/Diff, Automatedon 11-12 Absolute Lymph 0.99 X10 3/uL Normal 0.83-4.51 [facility] Comment on above: Order Comment: 108 Performed By: #### L 506.1001, L500.2500, L100.0100 ####[facility] [address] [place], [address] Absolute Neut 8.9 X10 3/uL High 2.0-7.7 [facility] Comment on above: Order Comment: 108 Performed By: #### L 506.1001, L500.2500, L100.0100 ####[facility] [address] [place], [address] Basophils/100 WBC (Bld) 1.0 % Normal 0-1 [facility] Comment on above: Order Comment: 108 Performed By: #### L 506.1001, L500.2500, L100.0100 ####[facility] [address] [place], [address] Eosinophils/100 WBC (Bld) 3.5 % Normal 0-5 [facility] Comment on above: Order Comment: 108 Performed By: #### L 506.1001, L500.2500, L100.0100 ####[facility] [address] [place], [address] Erythrocyte distribution width (RBC) [Ratio] 13.1 % Normal 11.6-14.6 [facility] Comment on above: Order Comment: 108 Performed By: #### L 506.1001, L500.2500, L100.0100 ####[facility] [address] [place], [address] Hematocrit (Bld) [Volume fraction] 35.7 % Low 37-47 [facility] Comment on above: Order Comment: 108 Performed By: #### L 506.1001, L500.2500, L100.0100 ####[facility] [address] [place], [address] Hemoglobin (Bld) [Mass/Vol] 11.5 g/dL Low 12.0-15.0 [facility] Comment on above: Order Comment: 108 Performed By: #### L 506.1001, L500.2500, L100.0100 ####[facility] [address] [place], [address] IG% 0.300 Normal 0.0-0.9 [facility] Comment on above: Order Comment: 108 Result Comment: IG% - Immature Granulocytes (promyelocytes, myelocytes andmetamyelocytes) > 1% indicates that a LEFT SHIFT is Present. Performed By: #### L 506.1001, L500.2500, L100.0100 ####[facility] [address] [place], [address] Lymphocytes/100 WBC (Bld) 9.0 % Low 19-41 [facility] Comment on above: Order Comment: 108 Performed By: #### L 506.1001, L500.2500, L100.0100 ####[facility] [address] [place], [address] MCH (RBC) [Entitic mass] 31.4 pg Normal 27.0-32.0 [facility] Comment on above: Order Comment: 108 Performed By: #### L 506.1001, L500.2500, L100.0100 ####[facility] [address] [place], [address] MCHC (RBC) [Mass/Vol] 32.2 g/dL Normal 32-36 [facility] Comment on above: Order Comment: 108 Performed By: #### L 506.1001, L500.2500, L100.0100 ####[facility] [address] [place], [address] MCV (RBC) [Entitic vol] 97.5 fL Normal 81-99 [facility] Comment on above: Order Comment: 108 Performed By: #### L 506.1001, L500.2500, L100.0100 ####[facility] [address] [place], [address] Monocytes/100 WBC (Bld) 5.5 % Normal 0-10 [facility] Comment on above: Order Comment: 108 Performed By: #### L 506.1001, L500.2500, L100.0100 ####[facility] [address] [place], [address] Neutrophils/100 WBC (Bld) 80.7 % High 47-70 [facility] Comment on above: Order Comment: 108 Performed By: #### L 506.1001, L500.2500, L100.0100 ####[facility] [address] [place], [address] Nucleated RBC (Bld) [#/Vol] 0 10*3/uL Normal 0-5 [facility] Comment on above: Order Comment: 108 Performed By: #### L 506.1001, L500.2500, L100.0100 ####[facility] [address] [place], [address] Platelet mean volume (Bld) [Entitic vol] 9.9 fL Normal 6.2-12.0 [facility] Comment on above: Order Comment: 108 Performed By: #### L 506.1001, L500.2500, L100.0100 ####[facility] [address] [place], [address] Platelets (Bld) [#/Vol] 297 10*3/uL Normal 150-450 [facility] Comment on above: Order Comment: 108 Performed By: #### L 506.1001, L500.2500, L100.0100 ####[facility] [address] [place], [address] RBC (Bld) [#/Vol] 3.66 10*6/uL Low 4.2-5.4 [facility] Comment on above: Order Comment: 108 Performed By: #### L 506.1001, L500.2500, L100.0100 ####[facility] [address] [place], [address] RDW SD 46.8 fl High 35.1-43.9 [facility] Comment on above: Order Comment: 108 Performed By: #### L 506.1001, L500.2500, L100.0100 ####[facility] [address] [place], [place], [address](654) WBC (Bld) [#/Vol] 11.0 10*3/uL Normal 4.4-11.0 [facility] Comment on above: Order Comment: 108 Performed By: #### L 506.1001, L500.2500, L100.0100 ####[facility] [address] [place], [address] [facility] BEHZAD HAY Brittney ([id number]) 1940 F Date Time Provider Department 11/23/24 TASHA DEUTSCH [facility] During your visit today, we recorded the following information about you: Tasha Deutsch APRN.DIRECTOR HR COMMUNICATIONS 11/23/2024 5:28 PM Signed Patient was admitted to [facility] on October 18, 2024 and discharged on November 16, 2024 for basal ganglia hemorrhage Patient is an 84-year-old female with a history of atrial fibrillation on Eliquis last dose October 18 in the morning, hypertension, hyperlipidemia who presented from [place] with an L. thalamic intracranial hemorrhage. LKW 2099October 17. Patient awoke at 6 AM October 18 with some right sided weakness was found in her home by her health aide at 9 AM slumped against the wall with right-sided weakness, right facial droop, dysarthria. NIHSS on arrival [facility] ED 16. [facility] [...] therapy. She is being discharged to a detention facility in stable condition. Discharge plan has [...] Rash MACROBID (NITROFURANTOIN MONOHYD/*09/25/2018 2 - Rash ASLHKEB-CRZ-HKK REDUCTASE INHIBIT*10/06/2014 5 - Intolerance Comments: severe leg pain Date Reviewed: 10/13/2024 Reviewed by: Yola Nj COTA/Filippo - Fully Assessed Primary Visit Diagnosis:Acute CVA (cerebrovascular accident) (HCC) [I63.9] Order(s):doxazosin (CARDURA) 4 mg tablet1 tablet by PEG route once d (more content not included)... Normal [facility] Vitamin D,25 Hydroxyon 11-23 Vitamin D 25-OH 33.4 ng/mL Normal 30-100 [facility] Comment on above: Order Comment: 108 Result Comment: Tati min D StatusDeficiency: <20 ng/mL (50nmol/L)Insufficiency: 20-30 ng/mL (50-75 nmol/L)Sufficiency: 30-100 ng/mL (75-250 nmol/L)Toxicity: >100 ng/mL (>250 nmol/L) Performed By: #### L 506.1001, L500.2500, L100.0100 ####[facility] [address] [place], [address] Basic Metabolic Profile (BMP )on 11-18-2024 BUN/CRE 38.1 RATIO High 10-20 [facility] Comment on above: Order Comment: 108 Performed By: #### L 100.0500, L500.2500 ####[facility] [address] [place], [address] Calcium [Mass/Vol] 10.0 mg/dL Normal 7.6-11.0 [facility] Comment on above: Order Comment: 108 Performed By: #### L 100.0500, L500.2500 ####[facility] [address] [place], [address] Chloride [Moles/Vol] 103 mmol/L Normal 98-108 [facility] Comment on above: Order Comment: 108 Performed By: #### L 100.0500, L500.2500 ####[facility] [address] [place], [address] CO2 [Moles/Vol] 26.6 mmol/L Normal 21.0-32.0 [facility] Comment on above: Order Comment: 108 Performed By: #### L 100.0500, L500.2500 ####[facility] [address] [place], [address] Creatinine [Mass/Vol] 0.75 mg/dL Normal 0.70-1.20 [facility] Comment on above: Order Comment: 108 Performed By: #### L 100.0500, L500.2500 ####[facility] [address] [place], [address] GAP 10 Normal 5-15 [facility] Comment on above: Order Comment: 108 Performed By: #### L 100.0500, L500.2500 ####[facility] [address] [place], [address] GFR/1.73 sq M.predicted among non-blacks MDRD (S/P/Bld) [Vol rate/Area] 77 mL/min/{1.73_m2} Normal >60 [facility] Comment on above: Order Comment: 108 Result Comment: mL/m in/1.73m2 CKD-EPI Creatinine Equation (2020) Performed By: #### L 100.0500, L500.2500 ####[facility] [address] [place], [address] Glucose [Mass/Vol] 132 mg/dL High 70-99 [facility] Comment on above: Order Comment: 108 Performed By: #### L 100.0500, L500.2500 ####[facility] [address] [place], [address] Potassium [Moles/Vol] 4.4 mmol/L Normal 3.3-5.1 [facility] Comment on above: Order Comment: 108 Performed By: #### L 100.0500, L500.2500 ####[facility] [address] [place], [address] Sodium [Moles/Vol] 139 mmol/L Normal 133-145 [facility] Comment on above: Order Comment: 108 Performed By: #### L 100.0500, L500.2500 ####[facility] [address] [place], [address] Urea nitrogen [Mass/Vol] 29 mg/dL High 4-19 [facility] Comment on above: Order Comment: 108 Performed By: #### L 100.0500, L500.2500 ####[facility] [address] [place], [address] CBC-Complete Blood Cnt No Di ffon 11-18-2024 Erythrocyte distribution width (RBC) [Ratio] 13.1 % Normal 11.6-14.6 [facility] Comment on above: Order Comment: 108 Performed By: #### L 100.0500, L500.2500 ####[facility] [address] [place], [address] Hematocrit (Bld) [Volume fraction] 37.5 % Normal 37-47 [facility] Comment on above: Order Comment: 108 Performed By: #### L 100.0500, L500.2500 ####[facility] [facility] [address] [place], [address] Hemoglobin (Bld) [Mass/Vol] 11.9 g/dL Low 12.0-15.0 [facility] Comment on above: Order Comment: 108 Performed By: #### L 100.0500, L500.2500 ####[facility] [address] [place], [address] MCH (RBC) [Entitic mass] 31.1 pg Normal 27.0-32.0 [facility] Comment on above: Order Comment: 108 Performed By: #### L 100.0500, L500.2500 ####[facility] [address] [place], [address] MCHC (RBC) [Mass/Vol] 31.7 g/dL Low 32-36 [facility] Comment on above: Order Comment: 108 Performed By: #### L 100.0500, L500.2500 ####[facility] [address] [place], [address] MCV (RBC) [Entitic vol] 97.9 fL Normal 81-99 [facility] Comment on above: Order Comment: 108 Performed By: #### L 100.0500, L500.2500 ####[facility] [address] [place], [address] Platelet mean volume (Bld) [Entitic vol] 9.7 fL Normal 6.2-12.0 [facility] Comment on above: Order Comment: 108 Performed By: #### L 100.0500, L500.2500 ####[facility] [address] [place], [address] Platelets (Bld) [#/Vol] 361 10*3/uL Normal 150-450 [facility] Comment on above: Order Comment: 108 Performed By: #### L 100.0500, L500.2500 ####[facility] [address] [place], [address] RBC (Bld) [#/Vol] 3.83 10*6/uL Low 4.2-5.4 [facility] Comment on above: Order Comment: 108 Performed By: #### L 100.0500, L500.2500 ####[facility] [address] [place], [address] RDW SD 46.5 fl High 35.1-43.9 [facility] Comment on above: Order Comment: 108 Performed By: #### L 100.0500, L500.2500 ####[facility] [address] [place], [address] WBC (Bld) [#/Vol] 7.9 10*3/uL Normal 4.4-11.0 [facility] Comment on above: Order Comment: 108 Performed By: #### L 100.0500, L500.2500 ####[facility] [address] [place], [address] CBC AND ELECTRONIC DIFFon Basophils (Bld) [#/Vol] 0.12 10*3/uL 0.00 - 0.15 K/uL [facility] Basophils/100 WBC (Bld) 2 % [facility] Differential cell count method Nom (Bld) Electronic Differential [facility] Eosinophils (Bld) [#/Vol] 0.59 10*3/uL High 0.00 - 0.42 K/uL [facility] Eosinophils/100 WBC (Bld) 10.1 % [facility] Erythrocyte distribution width (RBC) [Ratio] 13 % 10.8 - 14.9 % [facility] Hematocrit (Bld) [Volume fraction] 37.2 % 34.9 - 44.3 % [facility] Hemoglobin (Bld) [Mass/Vol] 11.5 g/dL 11.4 - 15.2 g/dL [facility] Immature granulocytes (Bld) [#/Vol] K/uL NINF - 0.08 K/uL [facility] Immature granulocytes/100 WBC (Bld) 0.3 % [facility] Interpretation and review of laboratory results Abnormal [facility] Lymphocytes (Bld) [#/Vol] 1.4 10*3/uL 1.16 - 3.51 K/uL [facility] Lymphocytes/100 WBC (Bld) 23.9 % [facility] MCH (RBC) [Entitic mass] 30.8 pg 25.9 - 33.9 pg [facility] MCHC (RBC) [Mass/Vol] 30.9 g/dL Low 31.4 - 35.9 g/dL [facility] MCV (RBC) [Entitic vol] 99.7 fL High 79.6 - 97.7 fL [facility] Monocytes (Bld) [#/Vol] 0.43 10*3/uL 0.22 - 0.87 K/uL [facility] Monocytes/100 WBC (Bld) 7.3 % [facility] Neutrophils (Bld) [#/Vol] 3.31 10*3/uL 1.64 - 7.28 K/uL [facility] Nucleated RBC/100 WBC (Bld) [Ratio] 0 % [facility] Platelet mean volume (Bld) [Entitic vol] 9.3 fL 8.5 - 12.2 fL [facility] Platelets (Bld) [#/Vol] 325 10*3/uL 150 - 393 K/uL [facility] RBC (Bld) [#/Vol] 3.73 10*6/uL Low [facility] Segmented neutrophils/100 WBC (Bld) 56.4 % [facility] WBC (Bld) [#/Vol] 5.87 10*3/uL 3.99 - 11.19 K/uL [facility] Basophils (Bld) [#/Vol] 0.12 10*3/uL Normal 0.00-0.15 [facility] Comment on above: Performed By: #### U [id number] #### [facility] (DEFAULT) [address] [place] [address] Basophils/100 WBC (Bld) 2.0 % Normal [facility] Comment on above: Performed By: #### U [id number] #### [facility] (DEFAULT) [address] [place] [address] DIFF STATUS Electronic Differential Normal [facility] Comment on above: Performed By: #### U [id number] #### [facility] (DEFAULT) [address] [address] Eosinophils (Bld) [#/Vol] 0.59 10*3/uL High 0.00-0.42 [facility] Comment on above: Performed By: #### U [id number] #### [facility] (DEFAULT) [address] [address] Eosinophils/100 WBC (Bld) 10.1 % Normal [facility] Comment on above: Performed By: #### U [id number] #### [facility] (DEFAULT) [address] [address] Hematocrit (Bld) [Volume fraction] 37.2 % Normal 34.9-44.3 [facility] Comment on above: Performed By: #### U [id number] #### [facility] (DEFAULT) [address] [address] Hemoglobin (Bld) [Mass/Vol] 11.5 g/dL Normal 11.4-15.2 [facility] Comment on above: Performed By: #### U [id number] #### [facility] (DEFAULT) [address] [address] Immature Grans % 0.3 % Normal [facility] Comment on above: Performed By: #### U [id number] #### [facility] (DEFAULT) [address] [place] [address] Immature Grans Absolute < Normal <=0.08 [facility] Comment on above: Performed By: #### U [id number] #### [facility] (DEFAULT) [address] [address] Lymphocytes (Bld) [#/Vol] 1.40 10*3/uL Normal 1.16-3.51 [facility] Comment on above: Performed By: #### U [id number] #### [facility] (DEFAULT) [address] [address] Lymphocytes/100 WBC (Bld) 23.9 % Normal [facility] Comment on above: Performed By: #### U [id number] #### [facility] (DEFAULT) [address] [address] MCV (RBC) [Entitic vol] 99.7 fL High 79.6-97.7 [facility] Comment on above: Performed By: #### U [id number] #### [facility] (DEFAULT) [address] [address] Mean Cell Hgb 30.8 pg Normal 25.9-33.9 [facility] Comment on above: Performed By: #### U [id number] #### [facility] (DEFAULT) [address] [address] Mean Cell Hgb Conc 30.9 g/dL Low 31.4-35.9 [facility] Comment on above: Performed By: #### U [id number] #### U [facility] (DEFAULT) [address] [address] Monocytes (Bld) [#/Vol] 0.43 10*3/uL Normal 0.22-0.87 [facility] Comment on above: Performed By: #### U [id number] #### [facility] (DEFAULT) [address] [address] Monocytes/100 WBC (Bld) 7.3 % Normal [facility] Comment on above: Performed By: #### U [id number] #### U [facility] (DEFAULT) [address] [place] [address] Nucleated RBC 0.0 /100 WBC Normal <=0.2 [facility] Comment on above: Performed By: #### U [id number] #### U [facility] (DEFAULT) [address] [place] [address] Platelet mean volume (Bld) [Entitic vol] 9.3 fL Normal 8.5-12.2 [facility] Comment on above: Performed By: #### U [id number] #### U [facility] (DEFAULT) [address] [place] [address] Platelets (Bld) [#/Vol] 325 10*3/uL Normal 150-393 [facility] Comment on above: Performed By: #### U [id number] #### [facility] (DEFAULT) [address] [place] [address] RBC (Bld) [#/Vol] 3.73 10*6/uL Low 3.91-5.04 [facility] Comment on above: Performed By: #### U [id number] #### U [facility] (DEFAULT) [address] [place] [address] RBC Distribution 13.0 % Normal 10.8-14.9 [facility] Comment on above: Performed By: #### U [id number] #### U [facility] (DEFAULT) [address] [place] [address] Segs + Bands Auto 56.4 % Normal [facility] Comment on above: Performed By: #### U [id number] #### [facility] (DEFAULT) [address] [place] [address] Segs + Bands,Absolute Auto 3.31 K/uL Normal 1.64-7.28 [facility] Comment on above: Performed By: #### U [id number] #### [facility] (DEFAULT) [address] [place] [address] WBC (Bld) [#/Vol] 5.87 10*3/uL Normal 3.99-11.19 [facility] Comment on above: Performed By: #### U [id number] #### [facility] (DEFAULT) [address] [place] [address] CHEM 7 (LYTES,BUN,CREA,GLUC) on 11-15-2024 Anion gap [Moles/Vol] 11 mmol/L 7 - 17 mmol/L [facility] Chloride [Moles/Vol] 104 mmol/L 98 - 10 8 [facility] CO2 [Moles/Vol] 30 mmol/L 21 - 31 mmol/L [facility] Creatinine [Mass/Vol] 0.65 mg/dL 0.50 - 1.20 mg/dL [facility] eGFR, CKD-EPI, Female 86 - PINF [facility] Glucose [Mass/Vol] 114 mg/dL 70 - 179 mg/dL [facility] Interpretation and review of laboratory results Abnormal [facility] Osmolality Calc [Osmolality] 300 [facility] Potassium [Moles/Vol] 4.7 mmol/L 3.5 - 5.0 mmol/L [facility] Sodium [Moles/Vol] 140 mmol/L 135 - 145 mmol/L [facility] Urea nitrogen [Mass/Vol] 26 mg/dL High 7 - 25 mg/dL [facility] Urea nitrogen/Creatinine [Mass ratio] 40 mg/mg [facility] Anion gap [Moles/Vol] 11 mmol/L Normal 7-17 [facility] Comment on above: Performed By: #### U R #### [facility] (DEFAULT) [address] [place] [address] Chloride [Moles/Vol] 104 mmol/L Normal 98-108 [facility] Comment on above: Performed By: #### U R #### [facility] (DEFAULT) [address] [place] [address] CO2 [Moles/Vol] 30 mmol/L Normal 21-31 [facility] Comment on above: Performed By: #### U R #### [facility] (DEFAULT) [address] [address] Creatinine [Mass/Vol] 0.65 mg/dL Normal 0.50-1.20 [facility] Comment on above: Performed By: #### U R #### [facility] (DEFAULT) [address] [place] [address] GFR/1.73 sq M.predicted among non-blacks MDRD (S/P/Bld) [Vol rate/Area] 86 mL/min/{1.73_m2} Normal >=60 [facility] Comment on above: Result Comment: Repo rted eGFR is based on the CKD-EPI 2020 equation using creatinine, age, and sex. Performed By: #### U R #### [facility] (DEFAULT) [address] [place] [address] Glucose [Mass/Vol] 114 mg/dL Normal Nonfastin g : 70-179 mg/dL; Fastin-99 [facility] Comment on above: Performed By: #### U R #### [facility] (DEFAULT) [address] [place] [address] Osmolality [Osmolality] 300 mosm/kg Normal 278-305 [facility] Comment on above: Performed By: #### U R #### [facility] (DEFAULT) [address] [address] Potassium [Moles/Vol] 4.7 mmol/L Normal 3.5-5.0 [facility] Comment on above: Performed By: #### U R #### [facility] (DEFAULT) [address] [address] Sodium [Moles/Vol] 140 mmol/L Normal 135-145 [facility] Comment on above: Performed By: #### U R #### [facility] (DEFAULT) [address] [address] Urea nitrogen [Mass/Vol] 26 mg/dL High 7-25 [facility] Comment on above: Performed By: #### U R #### [facility] (DEFAULT) [address] [place] [address] Urea nitrogen/Creatinine [Mass ratio] 40 mg/mg Normal [facility] Comment on above: Performed By: #### U R #### [facility] (DEFAULT) [address] [place] [address] HEPATIC FUNCTION PANELon Albumin [Mass/Vol] 3 g/dL Low 3.5 - 5.0 g/dL [facility] ALP [Catalytic activity/Vol] 76 U/L 32 - 126 U/L [facility] ALT [Catalytic activity/Vol] 11 U/L 9 - 48 U/L [facility] AST [Catalytic activity/Vol] 14 U/L 10 - 39 U/L [facility] Bilirubin [Mass/Vol] 0.2 mg/dL [facility] - 1.[facility] mg/dL [facility] Bilirubin.direct [Mass/Vol] mg/dL [facility] - 0.3 mg/dL [facility] Interpretation and review of laboratory results Abnormal [facility] Protein [Mass/Vol] 5.9 g/dL Low 6.4 - 8.3 g/dL [facility] Albumin [Mass/Vol] 3.0 g/dL Low 3.5-5.0 [facility] Comment on above: Performed By: #### U [id number] #### U [facility] (DEFAULT) [address] [place] [address] ALP [Catalytic activity/Vol] 76 U/L Normal 32-126 [facility] Comment on above: Performed By: #### U [id number] #### [facility] (DEFAULT) [address] [place] [address] ALT [Catalytic activity/Vol] 11 U/L Normal 9-48 [facility] Comment on above: Performed By: #### U [id number] #### [facility] (DEFAULT) [address] [place] [address] AST [Catalytic activity/Vol] 14 U/L Normal 10-39 [facility] Comment on above: Performed By: #### U [id number] #### [facility] (DEFAULT) [address] [place] [address] Bilirubin [Mass/Vol] 0.2 mg/dL Normal <1.5 [facility] Comment on above: Performed By: #### U [id number] #### [facility] (DEFAULT) [address] [place] [address] Bilirubin Direct < Normal <0.3 [facility] Comment on above: Performed By: #### U [id number] #### [facility] (DEFAULT) [address] [place] [address] Protein [Mass/Vol] 5.9 g/dL Low 6.4-8.3 [facility] Comment on above: Performed By: #### U [id number] #### [facility] (DEFAULT) [address] [place] [address] CARDIAC RHYTHMon 11-14-2024 [facility] CBC AND ELECTRONIC DIFFon Basophils (Bld) [#/Vol] 0.09 10*3/uL 0.00 - 0.15 K/uL [facility] Basophils/100 WBC (Bld) 0.9 % [facility] Differential cell count method Nom (Bld) Electronic Differential [facility] Eosinophils (Bld) [#/Vol] 0.34 10*3/uL 0.00 - 0.42 K/uL [facility] Eosinophils/100 WBC (Bld) 3.2 % [facility] Erythrocyte distribution width (RBC) [Ratio] 12.8 % 10.8 - 14.9 % [facility] Hematocrit (Bld) [Volume fraction] 35.6 % 34.9 - 44.3 % [facility] Hemoglobin (Bld) [Mass/Vol] 11.3 g/dL Low 11.4 - 15.2 g/dL [facility] Immature granulocytes (Bld) [#/Vol] K/uL NINF - 0.08 K/uL [facility] Immature granulocytes/100 WBC (Bld) 0.3 % [facility] Interpretation and review of laboratory results Abnormal [facility] Lymphocytes (Bld) [#/Vol] 1.14 10*3/uL Low 1.16 - 3.51 K/uL [facility] Lymphocytes/100 WBC (Bld) 10.8 % [facility] MCH (RBC) [Entitic mass] 30.7 pg 25.9 - 33.9 pg [facility] MCHC (RBC) [Mass/Vol] 31.7 g/dL 31.4 - 35.9 g/dL [facility] MCV (RBC) [Entitic vol] 96.7 fL 79.6 - 97.7 fL [facility] Monocytes (Bld) [#/Vol] 0.84 10*3/uL 0.22 - 0.87 K/uL [facility] Monocytes/100 WBC (Bld) 8 % [facility] Neutrophils (Bld) [#/Vol] 8.11 10*3/uL High 1.64 - 7.28 K/uL [facility] Nucleated RBC/100 WBC (Bld) [Ratio] 0 % [facility] Platelet mean volume (Bld) [Entitic vol] 9.9 fL 8.5 - 12.2 fL [facility] Platelets (Bld) [#/Vol] 328 10*3/uL 150 - 393 K/uL [facility] RBC (Bld) [#/Vol] 3.68 10*6/uL Low [facility] Segmented neutrophils/100 WBC (Bld) 76.8 % [facility] WBC (Bld) [#/Vol] 10.55 10*3/uL 3.99 - 11.19 K/uL [facility] Basophils (Bld) [#/Vol] 0.09 10*3/uL Normal 0.00-0.15 [facility] Comment on above: Performed By: #### T YPEC #### [facility] (DEFAULT) [address] [address] Basophils/100 WBC (Bld) 0.9 % Normal [facility] Comment on above: Performed By: #### T YPEC #### [facility] (DEFAULT) [address] [address] DIFF STATUS Electronic Differential Normal [facility] Comment on above: Performed By: #### T YPEC #### [facility] (DEFAULT) [address] [address] Eosinophils (Bld) [#/Vol] 0.34 10*3/uL Normal 0.00-0.42 [facility] Comment on above: Performed By: #### T YPEC #### [facility] (DEFAULT) [address] [address] Eosinophils/100 WBC (Bld) 3.2 % Normal [facility] Comment on above: Performed By: #### T YPEC #### [facility] (DEFAULT) [address] [address] Hematocrit (Bld) [Volume fraction] 35.6 % Normal 34.9-44.3 [facility] Comment on above: Performed By: #### T YPEC #### [facility] (DEFAULT) [address] [address] Hemoglobin (Bld) [Mass/Vol] 11.3 g/dL Low 11.4-15.2 [facility] Comment on above: Performed By: #### T YPEC #### [facility] (DEFAULT) [address] [address] Immature Grans % 0.3 % Normal [facility] Comment on above: Performed By: #### T YPEC #### [facility] (DEFAULT) [address] [address] Immature Grans Absolute < Normal <=0.08 [facility] Comment on above: Performed By: #### T YPEC #### U [facility] (DEFAULT) [address] [address] Lymphocytes (Bld) [#/Vol] 1.14 10*3/uL Low 1.16-3.51 [facility] Comment on above: Performed By: #### T YPEC #### U [facility] (DEFAULT) [address] [address] Lymphocytes/100 WBC (Bld) 10.8 % Normal [facility] Comment on above: Performed By: #### T YPEC #### U [facility] (DEFAULT) [address] [address] MCV (RBC) [Entitic vol] 96.7 fL Normal 79.6-97.7 [facility] Comment on above: Performed By: #### T YPEC #### [facility] (DEFAULT) [address] [address] Mean Cell Hgb 30.7 pg Normal 25.9-33.9 [facility] Comment on above: Performed By: #### T YPEC #### [facility] (DEFAULT) [address] [address] Mean Cell Hgb Conc 31.7 g/dL Normal 31.4-35.9 [facility] Comment on above: Performed By: #### T YPEC #### [facility] (DEFAULT) [address] [address] Monocytes (Bld) [#/Vol] 0.84 10*3/uL Normal 0.22-0.87 [facility] Comment on above: Performed By: #### T YPEC #### [facility] (DEFAULT) [address] [address] Monocytes/100 WBC (Bld) 8.0 % Normal [facility] Comment on above: Performed By: #### T YPEC #### [facility] (DEFAULT) [address] [address] Nucleated RBC 0.0 /100 WBC Normal <=0.2 [facility] Comment on above: Performed By: #### T YPEC #### U [facility] (DEFAULT) [address] [address] Platelet mean volume (Bld) [Entitic vol] 9.9 fL Normal 8.5-12.2 [facility] Comment on above: Performed By: #### T YPEC #### [facility] (DEFAULT) [address] [address] Platelets (Bld) [#/Vol] 328 10*3/uL Normal 150-393 [facility] Comment on above: Performed By: #### T YPEC #### [facility] (DEFAULT) [address] [address] RBC (Bld) [#/Vol] 3.68 10*6/uL Low 3.91-5.04 [facility] Comment on above: Performed By: #### T YPEC #### [facility] (DEFAULT) [address] [address] RBC Distribution 12.8 % Normal 10.8-14.9 [facility] Comment on above: Performed By: #### T YPEC #### [facility] (DEFAULT) [address] [address] Segs + Bands Auto 76.8 % Normal [facility] Comment on above: Performed By: #### T YPEC #### [facility] (DEFAULT) [address] [address] Segs + Bands,Absolute Auto 8.11 K/uL High 1.64-7.28 [facility] Comment on above: Performed By: #### T YPEC #### [facility] (DEFAULT) [address] [place] [address] WBC (Bld) [#/Vol] 10.55 10*3/uL Normal 3.99-11.19 [facility] Comment on above: Performed By: #### T YPEC #### [facility] (DEFAULT) [address] [place] [address] CHEM 7 (LYTES,BUN,CREA,GLUC) on 11-12-2024 Anion gap [Moles/Vol] 13 mmol/L 7 - 17 mmol/L [facility] Chloride [Moles/Vol] 101 mmol/L 98 - 10 8 [facility] CO2 [Moles/Vol] 26 mmol/L 21 - 31 mmol/L [facility] Creatinine [Mass/Vol] 0.59 mg/dL 0.50 - 1.20 mg/dL [facility] eGFR, CKD-EPI, Female 88 - PINF [facility] Glucose [Mass/Vol] 125 mg/dL 70 - 179 mg/dL [facility] Interpretation and review of laboratory results Abnormal [facility] Osmolality Calc [Osmolality] 291 [facility] Potassium [Moles/Vol] 4.9 mmol/L 3.5 - 5.0 mmol/L [facility] Sodium [Moles/Vol] 135 mmol/L 135 - 145 mmol/L [facility] Urea nitrogen [Mass/Vol] 26 mg/dL High 7 - 25 mg/dL [facility] Urea nitrogen/Creatinine [Mass ratio] 44 mg/mg [facility] Anion gap [Moles/Vol] 13 mmol/L Normal 7-17 [facility] Comment on above: Performed By: #### U R #### [facility] (DEFAULT) [address] [place] [address] Chloride [Moles/Vol] 101 mmol/L Normal 98-108 [facility] Comment on above: Performed By: #### U R #### [facility] (DEFAULT) [address] [place] [address] CO2 [Moles/Vol] 26 mmol/L Normal 21-31 [facility] Comment on above: Performed By: #### U R #### [facility] (DEFAULT) [address] [address] Creatinine [Mass/Vol] 0.59 mg/dL Normal 0.50-1.20 [facility] Comment on above: Performed By: #### U R #### [facility] (DEFAULT) [address] [place] [address] GFR/1.73 sq M.predicted among non-blacks MDRD (S/P/Bld) [Vol rate/Area] 88 mL/min/{1.73_m2} Normal >=60 [facility] Comment on above: Result Comment: Repo rted eGFR is based on the CKD-EPI 2020 equation using creatinine, age, and sex. Performed By: #### U R #### [facility] (DEFAULT) [address] [address] Glucose [Mass/Vol] 125 mg/dL Normal Nonfastin g : 70-179 mg/dL; Fastin-99 [facility] Comment on above: Performed By: #### U R #### [facility] (DEFAULT) [address] [place] [address] Osmolality [Osmolality] 291 mosm/kg Normal 278-305 [facility] Comment on above: Performed By: #### U R #### [facility] (DEFAULT) [address] [address] Potassium [Moles/Vol] 4.9 mmol/L Normal 3.5-5.0 [facility] Comment on above: Performed By: #### U R #### [facility] (DEFAULT) [address] [address] Sodium [Moles/Vol] 135 mmol/L Normal 135-145 [facility] Comment on above: Performed By: #### U R #### [facility] (DEFAULT) [address] [address] Urea nitrogen [Mass/Vol] 26 mg/dL High 7-25 [facility] Comment on above: Performed By: #### U R #### [facility] (DEFAULT) [address] [place] [address] Urea nitrogen/Creatinine [Mass ratio] 44 mg/mg Normal [facility] Comment on above: Performed By: #### U R #### [facility] (DEFAULT) [address] [place] [address] INTERVENTIONAL UPPER ENDOSCO PYon 11-12-2024 Body surface area Derived from formula 1.53 m2 [facility], [facility] Radiology Study observation (narrative) [facility] PT,INR,PTTon 11-12-2024 aPTT Coag (PPP) [Time] 29.9 s [facility] INR Coag (Bld) [Relative time] 1.1 {INR} 0.9 - 1.1 [facility] Interpretation and review of laboratory results Normal [facility] PT Coag (PPP) [Time] 13.7 s [facility] aPTT Coag (Bld) [Time] 29.9 s Normal 24.0-34.3 [facility] Comment on above: Performed By: #### U [id number] #### [facility] (DEFAULT) [address] [place] [address] INR Coag (PPP) [Relative time] 1.1 {INR} Normal 0.9-1.1 [facility] Comment on above: Performed By: #### U [id number] #### [facility] (DEFAULT) [address] [place] [address] PT Coag (PPP) [Time] 13.7 s Normal 11.9-14.2 [facility] Comment on above: Performed By: #### U [id number] #### [facility] (DEFAULT) [address] [place] [address] 20075 Portable XR Chest Viewson RADIOLOGY RADIOLOGY [facility] Radiology Study observation (narrative) [facility] Portable XR Chest ViewsOrder ed By: Andrea Mata on 11-12-2024 [facility] Work Phone: VENOUS BLOOD GASon 5 Base excess Calc (Bld) [Moles/Vol] 2.9 mmol/L -3.0 - 3.0 mmol/L [facility] CO2 (Bld) [Partial pressure] 41 mm[Hg] [facility] HCO3 (Bld) [Moles/Vol] 27 mmol/L 22 - 29 mmol/L [facility] Interpretation and review of laboratory results Abnormal [facility] Oxygen (Bld) [Partial pressure] 64 mm[Hg] mm Hg [facility] Oxygen saturation in Blood 94 % High 70 - 80 % [facility] pH (Bld) 7.43 [pH] 7.32 - 7.43 [facility] Specimen source Nom (Unsp spec) Venous [facility] Base Excess 2.9 mmol/L Normal -3.0-3.0 [facility] Comment on above: Performed By: #### G ASV5 #### [facility] (DEFAULT) [address] [address] HCO3 (Bld) [Moles/Vol] 27 mmol/L Normal 22-29 [facility] Comment on above: Performed By: #### G ASV5 #### [facility] (DEFAULT) [address] [place] [address] 20727 Oxygen saturation in Blood 94 % High 70-80 [facility] Comment on above: Performed By: #### G ASV5 #### [facility] (DEFAULT) [address] [place] [address] 79095 pCO2, Venous 41 mm Hg Normal 36-52 [facility] Comment on above: Performed By: #### G ASV5 #### [facility] (DEFAULT) [address] [place] [address] 88208 pH, Venous 7.43 Normal 7.32-7.43 [facility] Comment on above: Performed By: #### G ASV5 #### [facility] (DEFAULT) [address] [place] [address] 69789 pO2, Venous 64 mm Hg Normal [facility] Comment on above: Result Comment: Veno us pO2 is not recommended for the evaluation of oxygen status, clinical correlation is recommended. Performed By: #### G ASV5 #### [facility] (DEFAULT) [address] [place] [address]603 Specimen type Nom (Spec) Venous Normal [facility] Comment on above: Performed By: #### G ASV5 #### [facility] (DEFAULT) [address] [place] [address] 60196 XR CHEST 1 VIEW PORTABLEon 0 11-12-2024 [...] unremarkable. IMPRESSION: No acute cardiopulmonary findings Normal [facility] CT HEAD WITHOUT CONTRASTon 0 11-11-2024 [...] have reviewed and approved this report. Normal [facility] CT Head WO contraston 2024 RADIOLOGY RADIOLOGY [facility] Radiology Study observation (narrative) [facility] CT Head WO contrastOrdered B y: Ernie Cornelius on 11-11-2024 [facility] Work Phone: Portable XR Chest Viewson RADIOLOGY RADIOLOGY [facility] Radiology Study observation (narrative) [facility] Portable XR Chest ViewsOrder ed By: Monroe Clark on 11-11-2024 [facility] Work Phone: XR CHEST 1 VIEW PORTABLEon [...] have reviewed and approved this report. Normal [facility] CNPNon 11-10-2024 CNPN Telephone (FAMPWS) BHARTIBEHZAD ([id number]) 1940 F Date Time Provider Department 11/10/24 [facility] During your visit today, we recorded the following information about you: Molly Adame RN 11/10/2024 11:04 AM Signed [place] St[facility] Nurse Navigator with [facility] and reports Pt's daughter wanted her PCP to refer Pt to [facility]. She reports they like them to start 4-6 weeks after discharge, and she hasn't been discharged yet. She is going to fax over their [facility] [place] to fax # [phone]. JESIKA Garcia Lisa, MA 11/11/2024 9:20 AM Signed Fax received and placed on provider desk Winsome Butler MA November 11, 2024 9:20 AM Allergies As of Date: 11/10/2024 Noted Allergy Reaction ADHESIVE TAPE (ROSINS) 08/27/2011 2 - Rash BACTRIM (SULFAMETHOXAZOLE-TRIMETH*0 09/25/2018 2 - Rash MACROBID (NITROFURANTOIN MONOHYD/*09/25/2018 2 - Rash [id number] REDUCTASE INHIBIT*10/06/2014 5 - Intolerance Comments: severe leg pain Date Reviewed: 10/13/2024 Reviewed by: Yola Nj COTA/Filippo - Fully Assessed Reason for Visit: Fax [facility] [place] [Other] Prescriptions as of 11/12/2024 - [...] osteoarthritis of right hip [M16.11] 02/27/2017 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 (HCC) [KNW6203] 07/28/2017 07/06/2018 Collagenous colitis [K52.831] 12/21/2018 IBS (irritable bowel syndrome) [K58.9] 12/21/2018 Hiatal hernia [K44.9] 09/11/2020 Fall from standing [W19.XXXA] 06/05/2021 Rotator cuff tear arthropathy, left [M75.102, M*10/29/2021 Paroxysmal atrial fibrillation (HCC) [I48.0] 04/11/2022 Primary hypertension [I10] 12/30/2022 Acute pain of right shoulder [M25.511] 04/16/2023 Severe pain of left shoulder [M25.512] 04/16/2023 Cervicalgia [M54.2] 04/16/2023 Encounter Status:Closed by WINSOME BUTLER on 11/12/24 Normal [facility] Portable XR Chest Viewson RADIOLOGY RADIOLOGY [facility] Radiology Study observation (narrative) [facility] Portable XR Chest ViewsOrder ed By: Sarahy Reyes on 11-10-2024 [facility] Work Phone: XR CHEST 1 VIEW PORTABLEon [...] have reviewed and approved this report. Normal [facility] CBC AND ELECTRONIC DIFFon Basophils (Bld) [#/Vol] 0.11 10*3/uL 0.00 - 0.15 K/uL [facility] Basophils/100 WBC (Bld) 1.2 % [facility] Differential cell count method Nom (Bld) [facility] Eosinophils (Bld) [#/Vol] 0.72 10*3/uL High 0.00 - 0.42 K/uL [facility] Eosinophils/100 WBC (Bld) 8 % [facility] Erythrocyte distribution width (RBC) [Ratio] 12.8 % 10.8 - 14.9 % [facility] Hematocrit (Bld) [Volume fraction] 37.7 % 34.9 - 44.3 % [facility] Hemoglobin (Bld) [Mass/Vol] 12 g/dL 11.4 - 15.2 g/dL [facility] Immature granulocytes (Bld) [#/Vol] 0.07 10*3/uL NINF - 0.08 K/uL [facility] Immature granulocytes/100 WBC (Bld) 0.8 % [facility] Interpretation and review of laboratory results Abnormal [facility] Lymphocytes (Bld) [#/Vol] 1.78 10*3/uL 1.16 - 3.51 K/uL [facility] Lymphocytes/100 WBC (Bld) 19.7 % [facility] MCH (RBC) [Entitic mass] 30.6 pg 25.9 - 33.9 pg [facility] MCHC (RBC) [Mass/Vol] 31.8 g/dL 31.4 - 35.9 g/dL [facility] MCV (RBC) [Entitic vol] 96.2 fL 79.6 - 97.7 fL [facility] Monocytes (Bld) [#/Vol] 0.63 10*3/uL 0.22 - 0.87 K/uL [facility] Monocytes/100 WBC (Bld) 7 % [facility] Neutrophils (Bld) [#/Vol] 5.74 10*3/uL 1.64 - 7.28 K/uL [facility] Nucleated RBC/100 WBC (Bld) [Ratio] 0 % [facility] Platelet mean volume (Bld) [Entitic vol] 9.1 fL 8.5 - 12.2 fL [facility] Platelets (Bld) [#/Vol] 427 10*3/uL High 150 - 393 K/uL [facility] RBC (Bld) [#/Vol] 3.92 10*6/uL [facility] Segmented neutrophils/100 WBC (Bld) 63.3 % [facility] WBC (Bld) [#/Vol] 9.05 10*3/uL 3.99 - 11.19 K/uL [facility] Basophils (Bld) [#/Vol] 0.11 10*3/uL Normal 0.00-0.15 [facility] Comment on above: Performed By: #### C HM7 #### [facility] (DEFAULT) [address] [address] Basophils/100 WBC (Bld) 1.2 % Normal [facility] Comment on above: Performed By: #### C HM7 #### [facility] (DEFAULT) [address] [address] DIFF STATUS Electronic Differential Normal [facility] Comment on above: Performed By: #### C HM7 #### [facility] (DEFAULT) [address] [place] [address]83 Eosinophils (Bld) [#/Vol] 0.72 10*3/uL High 0.00-0.42 [facility] Comment on above: Performed By: #### C HM7 #### [facility] (DEFAULT) [address] [address] Eosinophils/100 WBC (Bld) 8.0 % Normal [facility] Comment on above: Performed By: #### C HM7 #### [facility] (DEFAULT) [address] [address] Hematocrit (Bld) [Volume fraction] 37.7 % Normal 34.9-44.3 [facility] Comment on above: Performed By: #### C HM7 #### [facility] (DEFAULT) [address] [place] [address]5633 Hemoglobin (Bld) [Mass/Vol] 12.0 g/dL Normal 11.4-15.2 [facility] Comment on above: Performed By: #### C HM7 #### [facility] (DEFAULT) [address] [address] Immature Grans % 0.8 % Normal [facility] Comment on above: Performed By: #### C HM7 #### [facility] (DEFAULT) [address] [address] Immature Grans Absolute 0.07 K/uL Normal <=0.08 [facility] Comment on above: Performed By: #### C HM7 #### [facility] (DEFAULT) [address] [address] Lymphocytes (Bld) [#/Vol] 1.78 10*3/uL Normal 1.16-3.51 [facility] Comment on above: Performed By: #### C HM7 #### [facility] (DEFAULT) [address] [address] Lymphocytes/100 WBC (Bld) 19.7 % Normal [facility] Comment on above: Performed By: #### C HM7 #### [facility] (DEFAULT) [address] [address] MCV (RBC) [Entitic vol] 96.2 fL Normal 79.6-97.7 [facility] Comment on above: Performed By: #### C HM7 #### [facility] (DEFAULT) [address] [address] Mean Cell Hgb 30.6 pg Normal 25.9-33.9 [facility] Comment on above: Performed By: #### C HM7 #### [facility] (DEFAULT) [address] [address] Mean Cell Hgb Conc 31.8 g/dL Normal 31.4-35.9 [facility] Comment on above: Performed By: #### C HM7 #### [facility] (DEFAULT) [address] [place] [address] Monocytes (Bld) [#/Vol] 0.63 10*3/uL Normal 0.22-0.87 [facility] Comment on above: Performed By: #### C HM7 #### [facility] (DEFAULT) [address] [place] [address] Monocytes/100 WBC (Bld) 7.0 % Normal [facility] Comment on above: Performed By: #### C HM7 #### [facility] (DEFAULT) [address] [place] [address]26 Nucleated RBC 0.0 /100 WBC Normal <=0.2 [facility] Comment on above: Performed By: #### C HM7 #### [facility] (DEFAULT) [address] [place] [address] Platelet mean volume (Bld) [Entitic vol] 9.1 fL Normal 8.5-12.2 [facility] Comment on above: Performed By: #### C HM7 #### [facility] (DEFAULT) [address] [place] [address] Platelets (Bld) [#/Vol] 427 10*3/uL High 150-393 [facility] Comment on above: Performed By: #### C HM7 #### [facility] (DEFAULT) [address] [place] [address] RBC (Bld) [#/Vol] 3.92 10*6/uL Normal 3.91-5.04 [facility] Comment on above: Performed By: #### C HM7 #### [facility] (DEFAULT) [address] [place] [address] 47577 RBC Distribution 12.8 % Normal 10.8-14.9 [facility] Comment on above: Performed By: #### C HM7 #### [facility] (DEFAULT) [address] [place] [address] 8[address] Segs + Bands Auto 63.3 % Normal [facility] Comment on above: Performed By: #### C HM7 #### [facility] (DEFAULT) [address] [place] [address] Segs + Bands,Absolute Auto 5.74 K/uL Normal 1.64-7.28 [facility] Comment on above: Performed By: #### C HM7 #### [facility] (DEFAULT) [address] [place] [address] WBC (Bld) [#/Vol] 9.05 10*3/uL Normal 3.99-11.19 [facility] Comment on above: Performed By: #### C HM7 #### [facility] (DEFAULT) [address] [place] [address] CHEM 7 (LYTES,BUN,CREA,GLUC) on 11-09-2024 Anion gap [Moles/Vol] 12 mmol/L 7 - 17 mmol/L [facility] Chloride [Moles/Vol] 101 mmol/L 98 - 10 8 mmol/L [facility] CO2 [Moles/Vol] 29 mmol/L 21 - 31 mmol/L [facility] Creatinine [Mass/Vol] 0.76 mg/dL 0.50 - 1.20 mg/dL [facility] eGFR, CKD-EPI, Female 76 - PINF [facility] Glucose [Mass/Vol] 107 mg/dL 70 - 179 mg/dL [facility] Interpretation and review of laboratory results Abnormal [facility] Osmolality Calc [Osmolality] 295 [facility] Potassium [Moles/Vol] 4.5 mmol/L 3.5 - 5.0 mmol/L [facility] Sodium [Moles/Vol] 137 mmol/L 135 - 145 mmol/L [facility] Urea nitrogen [Mass/Vol] 32 mg/dL High 7 - 25 mg/dL [facility] Urea nitrogen/Creatinine [Mass ratio] 42 mg/mg [facility] Anion gap [Moles/Vol] 12 mmol/L Normal 7-17 [facility] Comment on above: Performed By: #### C HM7 #### [facility] (DEFAULT) [address] [place] [address]408 Chloride [Moles/Vol] 101 mmol/L Normal 98-108 [facility] Comment on above: Performed By: #### C HM7 #### [facility] (DEFAULT) [address] [place] [address] CO2 [Moles/Vol] 29 mmol/L Normal 21-31 [facility] Comment on above: Performed By: #### C HM7 #### [facility] (DEFAULT) [address] [place] [address]72 Creatinine [Mass/Vol] 0.76 mg/dL Normal 0.50-1.20 [facility] Comment on above: Performed By: #### C HM7 #### [facility] (DEFAULT) [address] [place] [address] GFR/1.73 sq M.predicted among non-blacks MDRD (S/P/Bld) [Vol rate/Area] 76 mL/min/{1.73_m2} Normal >=60 [facility] Comment on above: Result Comment: Repo rted eGFR is based on the CKD-EPI 2020 equation using creatinine, age, and sex. Performed By: #### C HM7 #### [facility] (DEFAULT) [address] [place] [address] Glucose [Mass/Vol] 107 mg/dL Normal Nonfastin g : 70-179 mg/dL; Fastin-99 [facility] Comment on above: Performed By: #### C HM7 #### [facility] (DEFAULT) [address] [place] [address] Osmolality [Osmolality] 295 mosm/kg Normal 278-305 [facility] Comment on above: Performed By: #### C HM7 #### [facility] (DEFAULT) [address] [place] [address] Potassium [Moles/Vol] 4.5 mmol/L Normal 3.5-5.0 [facility] Comment on above: Performed By: #### C HM7 #### [facility] (DEFAULT) [address] [place] [address] Sodium [Moles/Vol] 137 mmol/L Normal 135-145 [facility] Comment on above: Performed By: #### C HM7 #### [facility] (DEFAULT) [address] [place] [address] Urea nitrogen [Mass/Vol] 32 mg/dL High 7- [facility] Comment on above: Performed By: #### C HM7 #### [facility] (DEFAULT) [address] [place] [address] Urea nitrogen/Creatinine [Mass ratio] 42 mg/mg Normal [facility] Comment on above: Performed By: #### C HM7 #### [facility] (DEFAULT) [address] [place] [address] FLEXIBLE ENDOSCOPIC EVALUATI ON OF SWALLOWINGon 11-09-2024 RADIOLOGY [facility] CBC AND ELECTRONIC DIFFon Basophils (Bld) [#/Vol] 0.11 10*3/uL 0.00 - 0.15 K/uL [facility] Basophils/100 WBC (Bld) 1.5 % [facility] Differential cell count method Nom (Bld) Electronic Differential [facility] Eosinophils (Bld) [#/Vol] 0.76 10*3/uL High 0.00 - 0.42 K/uL [facility] Eosinophils/100 WBC (Bld) 10.3 % [facility] Erythrocyte distribution width (RBC) [Ratio] 12.8 % 10.8 - 14.9 % [facility] Hematocrit (Bld) [Volume fraction] 37.5 % 34.9 - 44.3 % [facility] Hemoglobin (Bld) [Mass/Vol] 12 g/dL 11.4 - 15.2 g/dL [facility] Immature granulocytes (Bld) [#/Vol] 0.05 10*3/uL NINF - 0.08 K/uL [facility] Immature granulocytes/100 WBC (Bld) 0.7 % [facility] Interpretation and review of laboratory results Abnormal [facility] Lymphocytes (Bld) [#/Vol] 1.18 10*3/uL 1.16 - 3.51 K/uL [facility] Lymphocytes/100 WBC (Bld) 16 % [facility] MCH (RBC) [Entitic mass] 30.6 pg 25.9 - 33.9 pg [facility] MCHC (RBC) [Mass/Vol] 32 g/dL 31.4 - 35.9 g/dL [facility] MCV (RBC) [Entitic vol] 95.7 fL 79.6 - 97.7 fL [facility] Monocytes (Bld) [#/Vol] 0.38 10*3/uL 0.22 - 0.87 K/uL [facility] Monocytes/100 WBC (Bld) 5.1 % [facility] Neutrophils (Bld) [#/Vol] 4.9 10*3/uL 1.64 - 7.28 K/uL [facility] Nucleated RBC/100 WBC (Bld) [Ratio] 0 % [facility] Platelet mean volume (Bld) [Entitic vol] 9.1 fL 8.5 - 12.2 fL [facility] Platelets (Bld) [#/Vol] 408 10*3/uL High 150 - 393 K/uL [facility] RBC (Bld) [#/Vol] 3.92 10*6/uL [facility] Segmented neutrophils/100 WBC (Bld) 66.4 % [facility] WBC (Bld) [#/Vol] 7.38 10*3/uL 3.99 - 11.19 K/uL [facility] Basophils (Bld) [#/Vol] 0.11 10*3/uL Normal 0.00-0.15 [facility] Comment on above: Performed By: #### U [id number] #### [facility] (DEFAULT) [address] [place] [address] Basophils/100 WBC (Bld) 1.5 % Normal [facility] Comment on above: Performed By: #### U [id number] #### [facility] (DEFAULT) [address] [place] [address] DIFF STATUS Electronic Differential Normal [facility] Comment on above: Performed By: #### U [id number] #### [facility] (DEFAULT) [address] [place] [address] Eosinophils (Bld) [#/Vol] 0.76 10*3/uL High 0.00-0.42 [facility] Comment on above: Performed By: #### U [id number] #### [facility] (DEFAULT) [address] [address] Eosinophils/100 WBC (Bld) 10.3 % Normal [facility] Comment on above: Performed By: #### U [id number] #### [facility] (DEFAULT) [address] [address] Hematocrit (Bld) [Volume fraction] 37.5 % Normal 34.9-44.3 [facility] Comment on above: Performed By: #### U [id number] #### [facility] (DEFAULT) [address] [place] [address] Hemoglobin (Bld) [Mass/Vol] 12.0 g/dL Normal 11.4-15.2 [facility] Comment on above: Performed By: #### U [id number] #### [facility] (DEFAULT) [address] [address] Immature Grans % 0.7 % Normal [facility] Comment on above: Performed By: #### U [id number] #### [facility] (DEFAULT) [address] [place] [address] Immature Grans Absolute 0.05 K/uL Normal <=0.08 [facility] Comment on above: Performed By: #### U [id number] #### [facility] (DEFAULT) [address] [address] Lymphocytes (Bld) [#/Vol] 1.18 10*3/uL Normal 1.16-3.51 [facility] Comment on above: Performed By: #### U [id number] #### [facility] (DEFAULT) [address] [address] Lymphocytes/100 WBC (Bld) 16.0 % Normal [facility] Comment on above: Performed By: #### U [id number] #### [facility] (DEFAULT) [address] [address] MCV (RBC) [Entitic vol] 95.7 fL Normal 79.6-97.7 [facility] Comment on above: Performed By: #### U [id number] #### [facility] (DEFAULT) [address] [address] Mean Cell Hgb 30.6 pg Normal 25.9-33.9 [facility] Comment on above: Performed By: #### U [id number] #### [facility] (DEFAULT) [address] [address] Mean Cell Hgb Conc 32.0 g/dL Normal 31.4-35.9 [facility] Comment on above: Performed By: #### U [id number] #### [facility] (DEFAULT) [address] [address] Monocytes (Bld) [#/Vol] 0.38 10*3/uL Normal 0.22-0.87 [facility] Comment on above: Performed By: #### U [id number] #### [facility] (DEFAULT) [address] [address] Monocytes/100 WBC (Bld) 5.1 % Normal [facility] Comment on above: Performed By: #### U [id number] #### [facility] (DEFAULT) [address] [place] [address] Nucleated RBC 0.0 /100 WBC Normal <=0.2 [facility] Comment on above: Performed By: #### U [id number] #### [facility] (DEFAULT) [address] [place] [address] Platelet mean volume (Bld) [Entitic vol] 9.1 fL Normal 8.5-12.2 [facility] Comment on above: Performed By: #### U [id number] #### [facility] (DEFAULT) [address] [place] [address] Platelets (Bld) [#/Vol] 408 10*3/uL High 150-393 [facility] Comment on above: Performed By: #### U [id number] #### [facility] (DEFAULT) [address] [place] [address] RBC (Bld) [#/Vol] 3.92 10*6/uL Normal 3.91-5.04 [facility] Comment on above: Performed By: #### U [id number] #### [facility] (DEFAULT) [address] [place] [address] RBC Distribution 12.8 % Normal 10.8-14.9 [facility] Comment on above: Performed By: #### U [id number] #### [facility] (DEFAULT) [address] [place] [address] Segs + Bands Auto 66.4 % Normal [facility] Comment on above: Performed By: #### U [id number] #### [facility] (DEFAULT) [address] [place] [address] Segs + Bands,Absolute Auto 4.90 K/uL Normal 1.64-7.28 [facility] Comment on above: Performed By: #### U [id number] #### [facility] (DEFAULT) [address] [place] [address] WBC (Bld) [#/Vol] 7.38 10*3/uL Normal 3.99-11.19 [facility] Comment on above: Performed By: #### U [id number] #### [facility] (DEFAULT) [address] [place] [address] CHEM 7 (LYTES,BUN,CREA,GLUC) on 11-06-2024 Anion gap [Moles/Vol] 12 mmol/L 7 - 17 mmol/L [facility] Chloride [Moles/Vol] 104 mmol/L 98 - 10 8 mmol/L [facility] CO2 [Moles/Vol] 25 mmol/L 21 - 31 mmol/L [facility] Creatinine [Mass/Vol] 0.91 mg/dL 0.50 - 1.20 mg/dL [facility] eGFR, CKD-EPI, Female 61 - PINF [facility] Glucose [Mass/Vol] 88 mg/dL 70 - 179 mg/dL [facility] Osmolality Calc [Osmolality] 291 [facility] Potassium [Moles/Vol] 5 mmol/L 3.5 - 5.0 mmol/L [facility] Sodium [Moles/Vol] 136 mmol/L 135 - 145 mmol/L [facility] Urea nitrogen [Mass/Vol] 25 mg/dL 7 - 25 mg/dL [facility] Urea nitrogen/Creatinine [Mass ratio] 27 mg/mg [facility] Anion gap [Moles/Vol] 12 mmol/L Normal 7-17 [facility] Comment on above: Performed By: #### X M #### [facility] (DEFAULT) [address] [place] [address] Chloride [Moles/Vol] 104 mmol/L Normal 98-108 [facility] Comment on above: Performed By: #### X M #### [facility] (DEFAULT) [address] [place] [address] CO2 [Moles/Vol] 25 mmol/L Normal 21-31 [facility] Comment on above: Performed By: #### X M #### [facility] (DEFAULT) [address] [place] [address] Creatinine [Mass/Vol] 0.91 mg/dL Normal 0.50-1.20 [facility] Comment on above: Performed By: #### X M #### U [facility] (DEFAULT) [address] [place] [address] GFR/1.73 sq M.predicted among non-blacks MDRD (S/P/Bld) [Vol rate/Area] 61 mL/min/{1.73_m2} Normal >=60 [facility] Comment on above: Result Comment: Repo rted eGFR is based on the CKD-EPI 2020 equation using creatinine, age, and sex. Performed By: #### X M #### [facility] (DEFAULT) [address] [place] [address] Glucose [Mass/Vol] 88 mg/dL Normal Nonfastin g : 70-179 mg/dL; Fastin-99 [facility] Comment on above: Performed By: #### X M #### [facility] (DEFAULT) [address] [place] [address] 34779 Osmolality [Osmolality] 291 mosm/kg Normal 278-305 [facility] Comment on above: Performed By: #### X M #### [facility] (DEFAULT) [address] [place] [address] 85811 Potassium [Moles/Vol] 5.0 mmol/L Normal 3.5-5.0 [facility] Comment on above: Performed By: #### X M #### U [facility] (DEFAULT) [address] [place] [address] 45571 Sodium [Moles/Vol] 136 mmol/L Normal 135-145 [facility] Comment on above: Performed By: #### X M #### [facility] (DEFAULT) [address] [place] [address] 48218 Urea nitrogen [Mass/Vol] 25 mg/dL Normal 7-25 [facility] Comment on above: Performed By: #### X M #### [facility] (DEFAULT) [address] [place] [address] Urea nitrogen/Creatinine [Mass ratio] 27 mg/mg Normal [facility] Comment on above: Performed By: #### X M #### [facility] (DEFAULT) [address] [place] [address] URINE CULTUREOrdered By: Jag Bailey on 11-06-2024 Bacteria identified Cx Nom (Unsp spec) Growth [facility] Bacteria identified Cx Nom (Unsp spec) ENTEROCOCCUS FAECALIS Abnormal [facility] Interpretation and review of laboratory results Abnormal [facility] CBC,PLATELETSon 11-05-2024 Erythrocyte distribution width (RBC) [Ratio] 12.5 % 10.8 - 14.9 % [facility] Hematocrit (Bld) [Volume fraction] 37.5 % 34.9 - 44.3 % [facility] Hemoglobin (Bld) [Mass/Vol] 11.8 g/dL 11.4 - 15.2 g/dL [facility] Interpretation and review of laboratory results Abnormal [facility] MCH (RBC) [Entitic mass] 30.4 pg 25.9 - 33.9 pg [facility] MCHC (RBC) [Mass/Vol] 31.5 g/dL 31.4 - 35.9 g/dL [facility] MCV (RBC) [Entitic vol] 96.6 fL 79.6 - 97.7 fL [facility] Platelet mean volume (Bld) [Entitic vol] 9.5 fL 8.5 - 12.2 fL [facility] Platelets (Bld) [#/Vol] 478 10*3/uL High 150 - 393 K/uL [facility] RBC (Bld) [#/Vol] 3.88 10*6/uL Low [facility] WBC (Bld) [#/Vol] 8.21 10*3/uL 3.99 - 11.19 K[facility]L [facility] CHEM 7 (LYTES,BUN,CREA,GLUC) on 11-05-2024 Anion gap [Moles/Vol] 14 mmol/L 7 - 17 mmol/L [facility] Chloride [Moles/Vol] 101 mmol/L 98 - 10 8 mmol/L [facility] CO2 [Moles/Vol] 27 mmol/L 21 - 31 mmol/L [facility] Creatinine [Mass/Vol] 0.8 mg/dL 0.50 - 1.20 mg/dL [facility] eGFR, CKD-EPI, Female 72 - PINF [facility] Glucose [Mass/Vol] 114 mg/dL 70 - 179 mg/dL [facility] Osmolality Calc [Osmolality] 295 [facility] Potassium [Moles/Vol] 4.3 mmol/L 3.5 - 5.0 mmol/L [facility] Sodium [Moles/Vol] 138 mmol/L 135 - 145 mmol/L [facility] Urea nitrogen [Mass/Vol] 25 mg/dL 7 - 25 mg/dL [facility] Urea nitrogen/Creatinine [Mass ratio] 31 mg/mg [facility] HIGH SENSITIVITY TROPONIN I - SINGLE ORDERon 11-05-2024 Interpretation and review of laboratory results Normal [facility] Troponin I.cardiac High sensitivity method [Mass/Vol] 9 ng/L NINF - 34 ng/L [facility] CBC,PLATELETSon 11-04-2024 Hematocrit (Bld) [Volume fraction] 37.5 % Normal 34.9-44.3 [facility] Comment on above: Performed By: #### U R #### [facility] (DEFAULT) [address] [address] Hemoglobin (Bld) [Mass/Vol] 11.8 g/dL Normal 11.4-15.2 [facility] Comment on above: Performed By: #### U R #### [facility] (DEFAULT) [address] [place] [address] 15139 MCV (RBC) [Entitic vol] 96.6 fL Normal 79.6-97.7 [facility] Comment on above: Performed By: #### U R #### [facility] (DEFAULT) [address] [place] [address] 33099 Mean Cell Hgb 30.4 pg Normal 25.9-33.9 [facility] Comment on above: Performed By: #### U R #### [facility] (DEFAULT) [address] [place] [address] 55653 Mean Cell Hgb Conc 31.5 g/dL Normal 31.4-35.9 [facility] Comment on above: Performed By: #### U R #### [facility] (DEFAULT) [address] [place] [address] 83332 Platelet mean volume (Bld) [Entitic vol] 9.5 fL Normal 8.5-12.2 [facility] Comment on above: Performed By: #### U R #### [facility] (DEFAULT) [address] [place] [address] 84132 Platelets (Bld) [#/Vol] 478 10*3/uL High 150-393 [facility] Comment on above: Performed By: #### U R #### [facility] (DEFAULT) [address] [place] [address] 59787 RBC (Bld) [#/Vol] 3.88 10*6/uL Low 3.91-5.04 [facility] Comment on above: Performed By: #### U R #### [facility] (DEFAULT) [address] [address] RBC Distribution 12.5 % Normal 10.8-14.9 [facility] Comment on above: Performed By: #### U R #### [facility] (DEFAULT) [address] [place] [address] 37385 WBC (Bld) [#/Vol] 8.21 10*3/uL Normal 3.99-11.19 [facility] Comment on above: Performed By: #### U R #### U [facility] (DEFAULT) [address] [address] CHEM 7 (LYTES,BUN,CREA,GLUC) on 11-04-2024 Anion gap [Moles/Vol] 14 mmol/L Normal 7-17 [facility] Comment on above: Performed By: #### X M #### [facility] (DEFAULT) [address] [place] [address] 36262 Chloride [Moles/Vol] 101 mmol/L Normal 98-108 [facility] Comment on above: Performed By: #### X M #### [facility] (DEFAULT) [address] [address] CO2 [Moles/Vol] 27 mmol/L Normal 21-31 [facility] Comment on above: Performed By: #### X M #### [facility] (DEFAULT) [address] [address] Creatinine [Mass/Vol] 0.80 mg/dL Normal 0.50-1.20 [facility] Comment on above: Performed By: #### X M #### [facility] (DEFAULT) [address] [address] GFR/1.73 sq M.predicted among non-blacks MDRD (S/P/Bld) [Vol rate/Area] 72 mL/min/{1.73_m2} Normal >=60 [facility] Comment on above: Result Comment: Repo rted eGFR is based on the CKD-EPI 2020 equation using creatinine, age, and sex. Performed By: #### X M #### U [facility] (DEFAULT) [address] [address] Glucose [Mass/Vol] 114 mg/dL Normal Nonfastin g : 70-179 mg/dL; Fastin-99 [facility] Comment on above: Performed By: #### X M #### U [facility] (DEFAULT) [address] [place] [address] 41067 Osmolality [Osmolality] 295 mosm/kg Normal 278-305 [facility] Comment on above: Performed By: #### X M #### [facility] (DEFAULT) [address] [place] [address] 51857 Potassium [Moles/Vol] 4.3 mmol/L Normal 3.5-5.0 [facility] Comment on above: Performed By: #### X M #### [facility] (DEFAULT) [address] [place] [address] 54021 Sodium [Moles/Vol] 138 mmol/L Normal 135-145 [facility] Comment on above: Performed By: #### X M #### [facility] (DEFAULT) [address] [place] [address] 41975 Urea nitrogen [Mass/Vol] 25 mg/dL Normal 7-25 [facility] Comment on above: Performed By: #### X M #### [facility] (DEFAULT) [address] [place] [address] 27205 Urea nitrogen/Creatinine [Mass ratio] 31 mg/mg Normal [facility] Comment on above: Performed By: #### X M #### [facility] (DEFAULT) [address] [place] [address] 56703 HIGH SENSITIVITY TROPONIN I - SINGLE ORDERon 11-04-2024 hs-Troponin I 9 ng/L Normal <34 [facility] Comment on above: Order Comment: For i ndwelling catheters, specimen collection is acceptable on catheter day 1 and 2 only. ? Performed By: #### U [id number] #### [facility] (DEFAULT) [address] [place] [address] 18180 CBC AND ELECTRONIC DIFFon Basophils (Bld) [#/Vol] 0.1 10*3/uL 0.00 - 0.15 K/uL [facility] Basophils/100 WBC (Bld) 1.1 % [facility] Differential cell count method Nom (Bld) Electronic Differential [facility] Eosinophils (Bld) [#/Vol] 0.59 10*3/uL High 0.00 - 0.42 K/uL [facility] Eosinophils/100 WBC (Bld) 6.2 % [facility] Erythrocyte distribution width (RBC) [Ratio] 12.5 % 10.8 - 14.9 % [facility] Hematocrit (Bld) [Volume fraction] 37.4 % 34.9 - 44.3 % [facility] Hemoglobin (Bld) [Mass/Vol] 11.8 g/dL 11.4 - 15.2 g/dL [facility] Immature granulocytes (Bld) [#/Vol] 0.08 10*3/uL NINF - 0.08 K/uL [facility] Immature granulocytes/100 WBC (Bld) 0.8 % [facility] Interpretation and review of laboratory results Abnormal [facility] Lymphocytes (Bld) [#/Vol] 1.13 10*3/uL Low 1.16 - 3.51 K/uL [facility] Lymphocytes/100 WBC (Bld) 11.9 % [facility] MCH (RBC) [Entitic mass] 30.5 pg 25.9 - 33.9 pg [facility] MCHC (RBC) [Mass/Vol] 31.6 g/dL 31.4 - 35.9 g/dL [facility] MCV (RBC) [Entitic vol] 96.6 fL 79.6 - 97.7 fL [facility] Monocytes (Bld) [#/Vol] 0.47 10*3/uL 0.22 - 0.87 K/uL [facility] Monocytes/100 WBC (Bld) 4.9 % [facility] Neutrophils (Bld) [#/Vol] 7.13 10*3/uL 1.64 - 7.28 K/uL [facility] Nucleated RBC/100 WBC (Bld) [Ratio] 0 % [facility] Platelet mean volume (Bld) [Entitic vol] 9.4 fL 8.5 - 12.2 fL [facility] Platelets (Bld) [#/Vol] 511 10*3/uL High 150 - 393 K/uL [facility] RBC (Bld) [#/Vol] 3.87 10*6/uL Low [facility] Segmented neutrophils/100 WBC (Bld) 75.1 % [facility] WBC (Bld) [#/Vol] 9.5 10*3/uL 3.99 - 11.19 K/uL [facility] Basophils (Bld) [#/Vol] 0.10 10*3/uL Normal 0.00-0.15 [facility] Comment on above: Performed By: #### T YPEC #### [facility] (DEFAULT) [address] [address] Basophils/100 WBC (Bld) 1.1 % Normal [facility] Comment on above: Performed By: #### T YPEC #### [facility] (DEFAULT) [address] [address] DIFF STATUS Electronic Differential Normal [facility] Comment on above: Performed By: #### T YPEC #### [facility] (DEFAULT) [address] [address]693 Eosinophils (Bld) [#/Vol] 0.59 10*3/uL High 0.00-0.42 [facility] Comment on above: Performed By: #### T YPEC #### [facility] (DEFAULT) [address] [address] Eosinophils/100 WBC (Bld) 6.2 % Normal [facility] Comment on above: Performed By: #### T YPEC #### [facility] (DEFAULT) [address] [address] Hematocrit (Bld) [Volume fraction] 37.4 % Normal 34.9-44.3 [facility] Comment on above: Performed By: #### T YPEC #### [facility] (DEFAULT) [address] [address] Hemoglobin (Bld) [Mass/Vol] 11.8 g/dL Normal 11.4-15.2 [facility] Comment on above: Performed By: #### T YPEC #### [facility] (DEFAULT) [address] [address] Immature Grans % 0.8 % Normal [facility] Comment on above: Performed By: #### T YPEC #### [facility] (DEFAULT) [address] [place] [address] 79501 Immature Grans Absolute 0.08 K/uL Normal <=0.08 [facility] Comment on above: Performed By: #### T YPEC #### [facility] (DEFAULT) [address] [place] [address] 09770 Lymphocytes (Bld) [#/Vol] 1.13 10*3/uL Low 1.16-3.51 [facility] Comment on above: Performed By: #### T YPEC #### [facility] (DEFAULT) [address] [place] [address] 12525 Lymphocytes/100 WBC (Bld) 11.9 % Normal [facility] Comment on above: Performed By: #### T YPEC #### [facility] (DEFAULT) [address] [address] MCV (RBC) [Entitic vol] 96.6 fL Normal 79.6-97.7 [facility] Comment on above: Performed By: #### T YPEC #### [facility] (DEFAULT) [address] [place] [address] 57794 Mean Cell Hgb 30.5 pg Normal 25.9-33.9 [facility] Comment on above: Performed By: #### T YPEC #### [facility] (DEFAULT) [address] [address] Mean Cell Hgb Conc 31.6 g/dL Normal 31.4-35.9 [facility] Comment on above: Performed By: #### T YPEC #### [facility] (DEFAULT) [address] [place] [address] 68376 Monocytes (Bld) [#/Vol] 0.47 10*3/uL Normal 0.22-0.87 [facility] Comment on above: Performed By: #### T YPEC #### [facility] (DEFAULT) [address] [place] [address] 66004 Monocytes/100 WBC (Bld) 4.9 % Normal [facility] Comment on above: Performed By: #### T YPEC #### [facility] (DEFAULT) [address] [place] [address] 00679 Nucleated RBC 0.0 /100 WBC Normal <=0.2 [facility] Comment on above: Performed By: #### T YPEC #### [facility] (DEFAULT) [address] [place] [address] 44567 Platelet mean volume (Bld) [Entitic vol] 9.4 fL Normal 8.5-12.2 [facility] Comment on above: Performed By: #### T YPEC #### [facility] (DEFAULT) [address] [place] [address] 34235 Platelets (Bld) [#/Vol] 511 10*3/uL High 150-393 [facility] Comment on above: Performed By: #### T YPEC #### [facility] (DEFAULT) [address] [place] [address] 87271 RBC (Bld) [#/Vol] 3.87 10*6/uL Low 3.91-5.04 [facility] Comment on above: Performed By: #### T YPEC #### [facility] (DEFAULT) [address] [place] [address] 90404 RBC Distribution 12.5 % Normal 10.8-14.9 [facility] Comment on above: Performed By: #### T YPEC #### [facility] (DEFAULT) [address] [place] [address] 12741 Segs + Bands Auto 75.1 % Normal [facility] Comment on above: Performed By: #### T YPEC #### [facility] (DEFAULT) [address] [place] [address] 12145 Segs + Bands,Absolute Auto 7.13 K/uL Normal 1.64-7.28 [facility] Comment on above: Performed By: #### T YPEC #### [facility] (DEFAULT) [address] [place] [address] 39191 WBC (Bld) [#/Vol] 9.50 10*3/uL Normal 3.99-11.19 [facility] Comment on above: Performed By: #### T YPEC #### [facility] (DEFAULT) [address] [place] [address] 36671 CHEM 7 (LYTES,BUN,CREA,GLUC) on 11-03-2024 Anion gap [Moles/Vol] 12 mmol/L 7 - 17 mmol/L [facility] Chloride [Moles/Vol] 99 mmol/L 98 - 10 8 mmol/L [facility] CO2 [Moles/Vol] 31 mmol/L 21 - 31 mmol/L [facility] Creatinine [Mass/Vol] 0.75 mg/dL 0.50 - 1.20 mg/dL [facility] eGFR, CKD-EPI, Female 77 - PINF [facility] Glucose [Mass/Vol] 115 mg/dL 70 - 179 mg/dL [facility] Interpretation and review of laboratory results Abnormal [facility] Osmolality Calc [Osmolality] 296 [facility] Potassium [Moles/Vol] 4.6 mmol/L 3.5 - 5.0 mmol/L [facility] Sodium [Moles/Vol] 137 mmol/L 135 - 145 mmol/L [facility] Urea nitrogen [Mass/Vol] 31 mg/dL High 7 - 25 mg/dL [facility] Urea nitrogen/Creatinine [Mass ratio] 41 mg/mg [facility] Anion gap [Moles/Vol] 12 mmol/L Normal 7-17 [facility] Comment on above: Performed By: #### C HM7 #### [facility] (DEFAULT) [address] [place] [address] Chloride [Moles/Vol] 99 mmol/L Normal 98-108 [facility] Comment on above: Performed By: #### C HM7 #### [facility] (DEFAULT) [address] [place] [address] 09648 CO2 [Moles/Vol] 31 mmol/L Normal 21-31 [facility] Comment on above: Performed By: #### C HM7 #### [facility] (DEFAULT) [address] [place] [address] 80026 Creatinine [Mass/Vol] 0.75 mg/dL Normal 0.50-1.20 [facility] Comment on above: Performed By: #### C HM7 #### [facility] (DEFAULT) [address] [place] [address] 70609 GFR/1.73 sq M.predicted among non-blacks MDRD (S/P/Bld) [Vol rate/Area] 77 mL/min/{1.73_m2} Normal >=60 [facility] Comment on above: Result Comment: Repo rted eGFR is based on the CKD-EPI 2020 equation using creatinine, age, and sex. Performed By: #### C HM7 #### [facility] (DEFAULT) [address] [place] [address] 23261 Glucose [Mass/Vol] 115 mg/dL Normal Nonfastin g : 70-179 mg/dL; Fastin-99 [facility] Comment on above: Performed By: #### C HM7 #### [facility] (DEFAULT) [address] [place] [address] 29796 Osmolality [Osmolality] 296 mosm/kg Normal 278-305 [facility] Comment on above: Performed By: #### C HM7 #### [facility] (DEFAULT) [address] [place] [address] 43157 Potassium [Moles/Vol] 4.6 mmol/L Normal 3.5-5.0 [facility] Comment on above: Performed By: #### C HM7 #### [facility] (DEFAULT) [address] [place] [address] Sodium [Moles/Vol] 137 mmol/L Normal 135-145 [facility] Comment on above: Performed By: #### C HM7 #### [facility] (DEFAULT) [address] [place] [address] Urea nitrogen [Mass/Vol] 31 mg/dL High 7-25 [facility] Comment on above: Performed By: #### C HM7 #### [facility] (DEFAULT) [address] [place] [address] Urea nitrogen/Creatinine [Mass ratio] 41 mg/mg Normal [facility] Comment on above: Performed By: #### C HM7 #### [facility] (DEFAULT) [address] [place] [address] EXTRA MICROon 11-02-2024 [facility] URINALYSIS REFLEX TO CULTURE PERFORMABLEOrdered By: Na Engle on 11-02-2024 Appearance (U) Cloudy Abnormal Clear [facility] Bacteria LM Ql (Urine sed) PRESENT Abnormal ABSENT [facility] Color (U) Yellow Yellow [facility] Epithelial cells.squamous LM Ql (Urine sed) 0-2/hpf 0-2/hpf, 3-5/hpf = 1+ [facility] Glucose Test strip (U) [Mass/Vol] Negative Negative [facility] Interpretation and review of laboratory results [facility] Ketones (U) [Mass/Vol] Negative [facility] Leukocyte esterase Test strip Ql (U) Moderate Abnormal [facility] Nitrite Ql (U) Negative [facility] pH (U) 6.5 [pH] 5.0 - 7.0 [facility] Protein (U) [Mass/Vol] Negative [facility] RBC (U) [#/Vol] Negative Negative [facility] RBC LM.HPF (Urine sed) [#/Area] 3-5 Abnormal [facility] Specific gravity (U) [Rel density] 1.016 1.001 - 1.035 [facility] Urobilinogen (U) [Mass/Vol] 0.2 E.U./dL 0.2 E.U/dL, 1.0 E.U/dL [facility] WBC LM.HPF (Urine sed) [#/Area] /[HPF] Abnormal [facility] URINALYSIS REFLEX TO CULTURE PERFORMABLEon 11-02-2024 Appearance (U) Cloudy Abnormal Clear [facility] Comment on above: Order Comment: For i ndwelling catheters, specimen collection is acceptable on catheter day 1 and 2 only. ? Performed By: #### A 1CB, [id number] #### [facility] (DEFAULT) [address] [address] Bacteria PRESENT Abnormal ABSENT [facility] Comment on above: Order Comment: For i ndwelling catheters, specimen collection is acceptable on catheter day 1 and 2 only. ? Performed By: #### A 1CB, [id number] #### [facility] (DEFAULT) [address] [address] Blood Urine Negative Normal Negative [facility] Comment on above: Order Comment: For i ndwelling catheters, specimen collection is acceptable on catheter day 1 and 2 only. ? Performed By: #### A 1CB, [id number] #### [facility] (DEFAULT) [address] [place] [address]774 Color (U) Yellow Normal Yellow [facility] Comment on above: Order Comment: For i ndwelling catheters, specimen collection is acceptable on catheter day 1 and 2 only. ? Performed By: #### A 1CB, [id number] #### [facility] (DEFAULT) [address] [place] [address] Glucose Ql (U) Negative Normal Negative [facility] Comment on above: Order Comment: For i ndwelling catheters, specimen collection is acceptable on catheter day 1 and 2 only. ? Performed By: #### A 1CB, [id number] #### [facility] (DEFAULT) [address] [place] [address] 19192 Ketones Ql (U) Negative Normal Negative [facility] Comment on above: Order Comment: For i ndwelling catheters, specimen collection is acceptable on catheter day 1 and 2 only. ? Performed By: #### A 1CB, [id number] #### [facility] (DEFAULT) [address] [place] [address] 39354 Leukocyte esterase Test strip Ql (U) Moderate Abnormal Negative [facility] Comment on above: Order Comment: For i ndwelling catheters, specimen collection is acceptable on catheter day 1 and 2 only. ? Performed By: #### A 1CB, [id number] #### [facility] (DEFAULT) [address] [place] [address] 55399 Nitrites Urine Negative Normal Negative [facility] Comment on above: Order Comment: For i ndwelling catheters, specimen collection is acceptable on catheter day 1 and 2 only. ? Performed By: #### A 1CB, [id number] #### [facility] (DEFAULT) [address] [place] [address] 32391 pH (U) 6.5 [pH] Normal 5.0-7.0 [facility] Comment on above: Order Comment: For i ndwelling catheters, specimen collection is acceptable on catheter day 1 and 2 only. ? Performed By: #### A 1CB, [id number] #### [facility] (DEFAULT) [address] [place] [address] 90321 Protein Urine Negative Normal Negative [facility] Comment on above: Order Comment: For i ndwelling catheters, specimen collection is acceptable on catheter day 1 and 2 only. ? Performed By: #### A 1CB, [id number] #### [facility] (DEFAULT) [address] [place] [address]180 RBC Urine 3-5 Abnormal 0-2 [facility] Comment on above: Order Comment: For i ndwelling catheters, specimen collection is acceptable on catheter day 1 and 2 only. ? Performed By: #### A 1CB, [id number] #### [facility] (DEFAULT) [address] [place] [address] 57091 Specific [place] Urine 1.016 Normal 1.001-1.03 5 [facility] Comment on above: Order Comment: For i ndwelling catheters, specimen collection is acceptable on catheter day 1 and 2 only. ? Performed By: #### A 1CB, [id number] #### [facility] (DEFAULT) [address] [place] [address] 37942 Squamous/Epithelial Cells, Urine 0-2/hpf Normal 0-2/hpf, 3-5/hpf = 1+ [facility] Comment on above: Order Comment: For i ndwelling catheters, specimen collection is acceptable on catheter day 1 and 2 only. ? Performed By: #### A 1CB, [id number] #### [facility] (DEFAULT) [address] [place] [address] 64682 Urobilinogen Urine 0.2 E.U./dL Normal 0.2 E.U/dL, 1.0 E.U/dL [facility] Comment on above: Order Comment: For i ndwelling catheters, specimen collection is acceptable on catheter day 1 and 2 only. ? Performed By: #### A 1CB, [id number] #### [facility] (DEFAULT) [address] [place] [address] 48009 WBC LM.HPF (Urine sed) [#/Area] /[HPF] Abnormal 0 - 5 [facility] Comment on above: Order Comment: For i ndwelling catheters, specimen collection is acceptable on catheter day 1 and 2 only. ? Performed By: #### A 1CB, [id number] #### [facility] (DEFAULT) [address] [place] [address] 18409 URINE CULTUREon 11-02-2024 Bacteria identified Cx Nom (U) Normal [facility] Comment on above: Order Comment: For [...] 3 days. Performed By: #### A 1CB, [id number] #### [facility] (DEFAULT) [address] [place] [address] XR [id number] 1 VIEW PORTABLEon 11-02-2024 XR [...] IMPRESSION: Mild findings suggesting an ileus. Normal [facility] XR Abdomen Single viewon RADIOLOGY RADIOLOGY [facility] Radiology Study observation (narrative) [facility] XR Abdomen Single viewOrdere d By: Ana Fuentes on 11-02-2024 [facility] Work Phone: GLUCOSE POCon 11-01-2024 Glucose [Mass/Vol] 110 mg/dL 70 - 179 mg/dL [facility] POC Sample [facility] Glucose [Mass/Vol] 122 mg/dL 70 - 179 mg/dL [facility] POC Sample Type CAPBL [facility] XR ABDOMEN 1 VIEW PORTABLEon 11-01-2024 XR [...] a post pyloric location is recommended Normal [facility] XR ABDOMEN 1 VIEW PORTABLE EXAM: [...] tip likely in the proximal duodenum. Normal [facility] XR Abdomen Single viewon RADIOLOGY RADIOLOGY [facility] Radiology Study observation (narrative) [facility] RADIOLOGY RADIOLOGY [facility] Radiology Study observation (narrative) [facility] XR Abdomen Single viewOrdere d By: Angel Alicea on 11-01-2024 [facility] Work Phone: CBC AND ELECTRONIC DIFFon Basophils (Bld) [#/Vol] 0.12 10*3/uL 0.00 - 0.15 K/uL [facility] Basophils/100 WBC (Bld) 1.7 % [facility] Differential cell count method Nom (Bld) Electronic Differential [facility] Eosinophils (Bld) [#/Vol] 0.56 10*3/uL High 0.00 - 0.42 K/uL [facility] Eosinophils/100 WBC (Bld) 7.8 % [facility] Erythrocyte distribution width (RBC) [Ratio] 12.5 % 10.8 - 14.9 % [facility] Hematocrit (Bld) [Volume fraction] 36.7 % 34.9 - 44.3 % [facility] Hemoglobin (Bld) [Mass/Vol] 11.7 g/dL 11.4 - 15.2 g/dL [facility] Immature granulocytes (Bld) [#/Vol] 0.06 10*3/uL NINF - 0.08 K/uL [facility] Immature granulocytes/100 WBC (Bld) 0.8 % [facility] Interpretation and review of laboratory results Abnormal [facility] Lymphocytes (Bld) [#/Vol] 1.1 10*3/uL Low 1.16 - 3.51 K/uL [facility] Lymphocytes/100 WBC (Bld) 15.3 % [facility] MCH (RBC) [Entitic mass] 30.9 pg 25.9 - 33.9 pg [facility] MCHC (RBC) [Mass/Vol] 31.9 g/dL 31.4 - 35.9 g/dL [facility] MCV (RBC) [Entitic vol] 96.8 fL 79.6 - 97.7 fL [facility] Monocytes (Bld) [#/Vol] 0.66 10*3/uL 0.22 - 0.87 K/uL [facility] Monocytes/100 WBC (Bld) 9.2 % [facility] Neutrophils (Bld) [#/Vol] 4.7 10*3/uL 1.64 - 7.28 K/uL [facility] Nucleated RBC/100 WBC (Bld) [Ratio] 0 % NINF [facility] Platelet mean volume (Bld) [Entitic vol] 9.2 fL 8.5 - 12.2 fL [facility] Platelets (Bld) [#/Vol] 458 10*3/uL High 150 - 393 K/uL [facility] RBC (Bld) [#/Vol] 3.79 10*6/uL Low [facility] Segmented neutrophils/100 WBC (Bld) 65.2 % [facility] WBC (Bld) [#/Vol] 7.2 10*3/uL 3.99 - 11.19 K/uL [facility] Basophils (Bld) [#/Vol] 0.12 10*3/uL Normal 0.00-0.15 [facility] Comment on above: Performed By: #### T YPEC #### [facility] (DEFAULT) [address] [address] Basophils/100 WBC (Bld) 1.7 % Normal [facility] Comment on above: Performed By: #### T YPEC #### [facility] (DEFAULT) [address] [address] DIFF STATUS Electronic Differential Normal [facility] Comment on above: Performed By: #### T YPEC #### [facility] (DEFAULT) [address] [place] [address] Eosinophils (Bld) [#/Vol] 0.56 10*3/uL High 0.00-0.42 [facility] Comment on above: Performed By: #### T YPEC #### [facility] (DEFAULT) [address] [place] [address] Eosinophils/100 WBC (Bld) 7.8 % Normal [facility] Comment on above: Performed By: #### T YPEC #### [facility] (DEFAULT) [address] [address] Hematocrit (Bld) [Volume fraction] 36.7 % Normal 34.9-44.3 [facility] Comment on above: Performed By: #### T YPEC #### [facility] (DEFAULT) [address] [address] Hemoglobin (Bld) [Mass/Vol] 11.7 g/dL Normal 11.4-15.2 [facility] Comment on above: Performed By: #### T YPEC #### [facility] (DEFAULT) [address] [place] [address] Immature Grans % 0.8 % Normal [facility] Comment on above: Performed By: #### T YPEC #### [facility] (DEFAULT) [address] [address] Immature Grans Absolute 0.06 K/uL Normal <=0.08 [facility] Comment on above: Performed By: #### T YPEC #### [facility] (DEFAULT) [address] [place] [address] Lymphocytes (Bld) [#/Vol] 1.10 10*3/uL Low 1.16-3.51 [facility] Comment on above: Performed By: #### T YPEC #### [facility] (DEFAULT) [address] [address] Lymphocytes/100 WBC (Bld) 15.3 % Normal [facility] Comment on above: Performed By: #### T YPEC #### [facility] (DEFAULT) [address] [address] MCV (RBC) [Entitic vol] 96.8 fL Normal 79.6-97.7 [facility] Comment on above: Performed By: #### T YPEC #### [facility] (DEFAULT) [address] [address] Mean Cell Hgb 30.9 pg Normal 25.9-33.9 [facility] Comment on above: Performed By: #### T YPEC #### [facility] (DEFAULT) [address] [address] Mean Cell Hgb Conc 31.9 g/dL Normal 31.4-35.9 [facility] Comment on above: Performed By: #### T YPEC #### [facility] (DEFAULT) [address] [address] Monocytes (Bld) [#/Vol] 0.66 10*3/uL Normal 0.22-0.87 [facility] Comment on above: Performed By: #### T YPEC #### [facility] (DEFAULT) [address] [address] Monocytes/100 WBC (Bld) 9.2 % Normal [facility] Comment on above: Performed By: #### T YPEC #### [facility] (DEFAULT) [address] [address] Nucleated RBC 0.0 /100 WBC Normal <=0.2 [facility] Comment on above: Performed By: #### T YPEC #### [facility] (DEFAULT) [address] [address] Platelet mean volume (Bld) [Entitic vol] 9.2 fL Normal 8.5-12.2 [facility] Comment on above: Performed By: #### T YPEC #### [facility] (DEFAULT) [address] [address] Platelets (Bld) [#/Vol] 458 10*3/uL High 150-393 [facility] Comment on above: Performed By: #### T YPEC #### [facility] (DEFAULT) [address] [address] RBC (Bld) [#/Vol] 3.79 10*6/uL Low 3.91-5.04 [facility] Comment on above: Performed By: #### T YPEC #### [facility] (DEFAULT) [address] [place] [address] RBC Distribution 12.5 % Normal 10.8-14.9 [facility] Comment on above: Performed By: #### T YPEC #### [facility] (DEFAULT) [address] [place] [address] Segs + Bands Auto 65.2 % Normal [facility] Comment on above: Performed By: #### T YPEC #### [facility] (DEFAULT) [address] [place] [address] Segs + Bands,Absolute Auto 4.70 K/uL Normal 1.64-7.28 [facility] Comment on above: Performed By: #### T YPEC #### [facility] (DEFAULT) [address] [place] [address] WBC (Bld) [#/Vol] 7.20 10*3/uL Normal 3.99-11.19 [facility] Comment on above: Performed By: #### T YPEC #### [facility] (DEFAULT) [address] [place] [address] CHEM 7 (LYTES,BUN,CREA,GLUC) on 10-31-2024 Anion gap [Moles/Vol] 12 mmol/L 7 - 17 mmol/L [facility] Chloride [Moles/Vol] 103 mmol/L 98 - 10 8 mmol/L [facility] CO2 [Moles/Vol] 28 mmol/L 21 - 31 mmol/L [facility] Creatinine [Mass/Vol] 0.75 mg/dL 0.50 - 1.20 mg/dL [facility] eGFR, CKD-EPI, Female 77 - PINF [facility] Glucose [Mass/Vol] 122 mg/dL 70 - 179 mg/dL [facility] Interpretation and review of laboratory results Abnormal [facility] Osmolality Calc [Osmolality] 299 [facility] Potassium [Moles/Vol] 4.6 mmol/L 3.5 - 5.0 mmol/L [facility] Sodium [Moles/Vol] 138 mmol/L 135 - 145 mmol/L [facility] Urea nitrogen [Mass/Vol] 33 mg/dL High 7 - 25 mg/dL [facility] Urea nitrogen/Creatinine [Mass ratio] 44 mg/mg [facility] Anion gap [Moles/Vol] 12 mmol/L Normal 7-17 [facility] Comment on above: Performed By: #### U [id number] #### [facility] (DEFAULT) [address] [place] [address] Chloride [Moles/Vol] 103 mmol/L Normal 98-108 [facility] Comment on above: Performed By: #### U [id number] #### [facility] (DEFAULT) [address] [place] [address] CO2 [Moles/Vol] 28 mmol/L Normal 21-31 [facility] Comment on above: Performed By: #### U [id number] #### [facility] (DEFAULT) [address] [place] [address] Creatinine [Mass/Vol] 0.75 mg/dL Normal 0.50-1.20 [facility] Comment on above: Performed By: #### U [id number] #### [facility] (DEFAULT) [address] [place] [address] GFR/1.73 sq M.predicted among non-blacks MDRD (S/P/Bld) [Vol rate/Area] 77 mL/min/{1.73_m2} Normal >=60 [facility] Comment on above: Result Comment: Repo rted eGFR is based on the CKD-EPI 2020 equation using creatinine, age, and sex. Performed By: #### U [id number] #### [facility] (DEFAULT) [address] [place] [address] Glucose [Mass/Vol] 122 mg/dL Normal Nonfastin g : 70-179 mg/dL; Fastin-99 [facility] Comment on above: Performed By: #### U [id number] #### [facility] (DEFAULT) [address] [place] [address] Osmolality [Osmolality] 299 mosm/kg Normal 278-305 [facility] Comment on above: Performed By: #### U [id number] #### [facility] (DEFAULT) [address] [place] [address] Potassium [Moles/Vol] 4.6 mmol/L Normal 3.5-5.0 [facility] Comment on above: Performed By: #### U [id number] #### [facility] (DEFAULT) [address] [place] [address] Sodium [Moles/Vol] 138 mmol/L Normal 135-145 [facility] Comment on above: Performed By: #### U [id number] #### U [facility] (DEFAULT) [address] [place] [address] Urea nitrogen [Mass/Vol] 33 mg/dL High 7-25 [facility] Comment on above: Performed By: #### U [id number] #### [facility] (DEFAULT) [address] [place] [address] Urea nitrogen/Creatinine [Mass ratio] 44 mg/mg Normal [facility] Comment on above: Performed By: #### U [id number] #### U [facility] (DEFAULT) [address] [place] [address] GLUCOSE POCon 10-31-2024 Glucose [Mass/Vol] 136 mg/dL 70 - 179 mg/dL [facility] POC Sample Type CAPBL [facility] Glucose [Mass/Vol] 146 mg/dL 70 - 179 mg/dL [facility] Glucose [Mass/Vol] 168 mg/dL 70 - 179 mg/dL [facility] Glucose [Mass/Vol] 138 mg/dL 70 - 179 mg/dL [facility] Glucose [Mass/Vol] 136 mg/dL 70 - 179 mg/dL [facility] Glucose [Mass/Vol] 108 mg/dL 70 - 179 mg/dL [facility] No Panel Informationon 10-31 POC Sample Type CAPBL [facility] POC Sample Type CAPBL [facility] GLUCOSE POCon 10-30-2024 Glucose [Mass/Vol] 129 mg/dL 70 - 179 mg/dL [facility] Glucose [Mass/Vol] 137 mg/dL 70 - 179 mg/dL [facility] Glucose [Mass/Vol] 135 mg/dL 70 - 179 mg/dL [facility] Glucose [Mass/Vol] 144 mg/dL 70 - 179 mg/dL [facility] POC Sample Type [facility] No Panel Informationon 10-30 POC Sample Type [facility] GLUCOSE POCon 10-29-2024 Glucose [Mass/Vol] 136 mg/dL 70 - 179 mg/dL [facility] POC Sample Type [facility] Glucose [Mass/Vol] 133 mg/dL 70 - 179 mg/dL [facility] POC Sample Type [facility] Glucose [Mass/Vol] 108 mg/dL 70 - 179 mg/dL [facility] Glucose [Mass/Vol] 148 mg/dL 70 - 179 mg/dL [facility] Glucose [Mass/Vol] 147 mg/dL 70 - 179 mg/dL [facility] Glucose [Mass/Vol] 141 mg/dL 70 - 179 mg/dL [facility] Glucose [Mass/Vol] 123 mg/dL 70 - 179 mg/dL [facility] Panel Informationon 10-29 POC Sample Type CAPBL [facility] XR ABDOMEN 1 VIEW PORTABLEon 10-29-2024 XR [...] the distal stomach near the pylorus. Normal [facility] XR Abdomen Single viewon RADIOLOGY RADIOLOGY [facility] Radiology Study observation (narrative) [facility] XR Abdomen Single viewOrdere d By: Julianna Tapia on 10-29-2024 [facility] Work Phone: CBC AND ELECTRONIC DIFFon Basophils (Bld) [#/Vol] 0.1 10*3/uL 0.00 - 0.15 K/uL [facility] Basophils/100 WBC (Bld) 1.3 % [facility] Differential cell count method Nom (Bld) Electronic Differential [facility] Eosinophils (Bld) [#/Vol] 0.28 10*3/uL 0.00 - 0.42 K/uL [facility] Eosinophils/100 WBC (Bld) 3.8 % [facility] Erythrocyte distribution width (RBC) [Ratio] 12.5 % 10.8 - 14.9 % [facility] Hematocrit (Bld) [Volume fraction] 40.6 % 34.9 - 44.3 % [facility] Hemoglobin (Bld) [Mass/Vol] 12.8 g/dL 11.4 - 15.2 g/dL [facility] Immature granulocytes (Bld) [#/Vol] 0.09 10*3/uL High NINF - 0.08 K/uL [facility] Immature granulocytes/100 WBC (Bld) 1.2 % [facility] Interpretation and review of laboratory results Abnormal [facility] Lymphocytes (Bld) [#/Vol] 1.07 10*3/uL Low 1.16 - 3.51 K/uL [facility] Lymphocytes/100 WBC (Bld) 14.4 % [facility] MCH (RBC) [Entitic mass] 30.5 pg 25.9 - 33.9 pg [facility] MCHC (RBC) [Mass/Vol] 31.5 g/dL 31.4 - 35.9 g/dL [facility] MCV (RBC) [Entitic vol] 96.9 fL 79.6 - 97.7 fL [facility] Monocytes (Bld) [#/Vol] 0.57 10*3/uL 0.22 - 0.87 K/uL [facility] Monocytes/100 WBC (Bld) 7.7 % [facility] Neutrophils (Bld) [#/Vol] 5.3 10*3/uL 1.64 - 7.28 K/uL [facility] Nucleated RBC/100 WBC (Bld) [Ratio] 0 % NINF [facility] Platelet mean volume (Bld) [Entitic vol] 10.7 fL 8.5 - 12.2 fL [facility] Platelets (Bld) [#/Vol] 304 10*3/uL 150 - 393 K/uL [facility] RBC (Bld) [#/Vol] 4.19 10*6/uL [facility] Segmented neutrophils/100 WBC (Bld) 71.6 % [facility] WBC (Bld) [#/Vol] 7.41 10*3/uL 3.99 - 11.19 K/uL [facility] Basophils (Bld) [#/Vol] 0.10 10*3/uL Normal 0.00-0.15 [facility] Comment on above: Performed By: #### X M #### [facility] (DEFAULT) [address] [place] [address] Basophils/100 WBC (Bld) 1.3 % Normal [facility] Comment on above: Performed By: #### X M #### [facility] (DEFAULT) [address] [address] DIFF STATUS Electronic Differential Normal [facility] Comment on above: Performed By: #### X M #### [facility] (DEFAULT) [address] [address] Eosinophils (Bld) [#/Vol] 0.28 10*3/uL Normal 0.00-0.42 [facility] Comment on above: Performed By: #### X M #### [facility] (DEFAULT) [address] [address] Eosinophils/100 WBC (Bld) 3.8 % Normal [facility] Comment on above: Performed By: #### X M #### [facility] (DEFAULT) [address] [address] Hematocrit (Bld) [Volume fraction] 40.6 % Normal 34.9-44.3 [facility] Comment on above: Performed By: #### X M #### [facility] (DEFAULT) [address] [address] Hemoglobin (Bld) [Mass/Vol] 12.8 g/dL Normal 11.4-15.2 [facility] Comment on above: Performed By: #### X M #### [facility] (DEFAULT) [address] [address] Immature Grans % 1.2 % Normal [facility] Comment on above: Performed By: #### X M #### [facility] (DEFAULT) [address] [address] Immature Grans Absolute 0.09 K/uL High <=0.08 [facility] Comment on above: Performed By: #### X M #### [facility] (DEFAULT) [address] [address] Lymphocytes (Bld) [#/Vol] 1.07 10*3/uL Low 1.16-3.51 [facility] Comment on above: Performed By: #### X M #### [facility] (DEFAULT) [address] [place] [address] Lymphocytes/100 WBC (Bld) 14.4 % Normal [facility] Comment on above: Performed By: #### X M #### [facility] (DEFAULT) [address] [address] MCV (RBC) [Entitic vol] 96.9 fL Normal 79.6-97.7 [facility] Comment on above: Performed By: #### X M #### [facility] (DEFAULT) [address] [address] Mean Cell Hgb 30.5 pg Normal 25.9-33.9 [facility] Comment on above: Performed By: #### X M #### [facility] (DEFAULT) [address] [address] Mean Cell Hgb Conc 31.5 g/dL Normal 31.4-35.9 [facility] Comment on above: Performed By: #### X M #### [facility] (DEFAULT) [address] [address] Monocytes (Bld) [#/Vol] 0.57 10*3/uL Normal 0.22-0.87 [facility] Comment on above: Performed By: #### X M #### [facility] (DEFAULT) [address] [place] [address] Monocytes/100 WBC (Bld) 7.7 % Normal [facility] Comment on above: Performed By: #### X M #### U [facility] (DEFAULT) [address] [place] [address] Nucleated RBC 0.0 /100 WBC Normal <=0.2 [facility] Comment on above: Performed By: #### X M #### U [facility] (DEFAULT) [address] [place] [address] Platelet mean volume (Bld) [Entitic vol] 10.7 fL Normal 8.5-12.2 [facility] Comment on above: Result Comment: This is an appended report. These results have been appended to a previously preliminary verified report. Performed By: #### X M #### [facility] (DEFAULT) [address] [place] [address] Platelets (Bld) [#/Vol] 304 10*3/uL Normal 150-393 [facility] Comment on above: Result Comment: Plat elet clumps noted on smear. Reported instrument value is acceptable This is an appended report. These results have been appended to a previously preliminary verified report. Performed By: #### X M #### [facility] (DEFAULT) [address] [place] [address] RBC (Bld) [#/Vol] 4.19 10*6/uL Normal 3.91-5.04 [facility] Comment on above: Performed By: #### X M #### [facility] (DEFAULT) [address] [address] RBC Distribution 12.5 % Normal 10.8-14.9 [facility] Comment on above: Performed By: #### X M #### [facility] (DEFAULT) [address] [place] [address] Segs + Bands Auto 71.6 % Normal [facility] Comment on above: Performed By: #### X M #### [facility] (DEFAULT) [address] [place] [address] Segs + Bands,Absolute Auto 5.30 K/uL Normal 1.64-7.28 [facility] Comment on above: Performed By: #### X M #### [facility] (DEFAULT) [address] [place] [address] WBC (Bld) [#/Vol] 7.41 10*3/uL Normal 3.99-11.19 [facility] Comment on above: Performed By: #### X M #### [facility] (DEFAULT) [address] [place] [address] CHEM 7 (LYTES,BUN,CREA,GLUC) on 10-28-2024 Anion gap [Moles/Vol] 14 mmol/L 7 - 17 mmol/L [facility] Chloride [Moles/Vol] 100 mmol/L 98 - 10 8 mmol/L [facility] CO2 [Moles/Vol] 27 mmol/L 21 - 31 mmol/L [facility] Creatinine [Mass/Vol] 0.81 mg/dL 0.50 - 1.20 mg/dL [facility] eGFR, CKD-EPI, Female 71 - PINF [facility] Glucose [Mass/Vol] 124 mg/dL 70 - 179 mg/dL [facility] Osmolality Calc [Osmolality] 292 [facility] Potassium [Moles/Vol] 4.6 mmol/L 3.5 - 5.0 mmol/L [facility] Sodium [Moles/Vol] 136 mmol/L 135 - 145 mmol/L [facility] Urea nitrogen [Mass/Vol] 25 mg/dL 7 - 25 mg/dL [facility] Urea nitrogen/Creatinine [Mass ratio] 31 mg/mg [facility] Anion gap [Moles/Vol] 14 mmol/L Normal 7-17 [facility] Comment on above: Performed By: #### C HM7 #### [facility] (DEFAULT) [address] [place] [address] Chloride [Moles/Vol] 100 mmol/L Normal 98-108 [facility] Comment on above: Performed By: #### Taylor HM7 #### Eli[facility] (DEFAULT) [address] [place] [address] CO2 [Moles/Vol] 27 mmol/L Normal 21-31 [facility] Comment on above: Performed By: #### Taylor HM7 #### Eliu [facility] (DEFAULT) [address] [place] [address] Creatinine [Mass/Vol] 0.81 mg/dL Normal 0.50-1.20 [facility] Comment on above: Performed By: #### Taylor HM7 #### [facility] (DEFAULT) [address] [place] [address] GFR/1.73 sq M.predicted among non-blacks MDRD (S/P/Bld) [Vol rate/Area] 71 mL/min/{1.73_m2} Normal >=60 [facility] Comment on above: Result Comment: Repo rted eGFR is based on the CKD-EPI 2020 equation using creatinine, age, and sex. Performed By: #### Taylor HM7 #### [facility] (DEFAULT) [address] [place] [address] Glucose [Mass/Vol] 124 mg/dL Normal Nonfastin g : 70-179 mg/dL; Fastin-99 [facility] Comment on above: Performed By: #### Taylor HM7 #### [facility] (DEFAULT) [address] [place] [address] Osmolality [Osmolality] 292 mosm/kg Normal 278-305 [facility] Comment on above: Performed By: #### Taylor HM7 #### [facility] (DEFAULT) [address] [address] Potassium [Moles/Vol] 4.6 mmol/L Normal 3.5-5.0 [facility] Comment on above: Performed By: #### Taylor HM7 #### U [facility] (DEFAULT) [address] [place] [address] Sodium [Moles/Vol] 136 mmol/L Normal 135-145 [facility] Comment on above: Performed By: #### C HM7 #### [facility] (DEFAULT) [address] [place] [address] Urea nitrogen [Mass/Vol] 25 mg/dL Normal 7-25 [facility] Comment on above: Performed By: #### C HM7 #### [facility] (DEFAULT) [address] [place] [address] Urea nitrogen/Creatinine [Mass ratio] 31 mg/mg Normal [facility] Comment on above: Performed By: #### C HM7 #### [facility] (DEFAULT) [address] [place] [address] URINE CULTUREOrdered By: Raad Nieto on 10-28-2024 Bacteria identified Cx Nom (Unsp spec) Growth [facility] Bacteria identified Cx Nom (Unsp spec) >10,000 CFU/mL Mixed microbes [facility] Bacteria identified Cx Nom (Unsp spec) Escherichia/Citrobacter like Abnormal [facility] Bacteria identified Cx Nom (Unsp spec) ENTEROCOCCUS FAECALIS Abnormal [facility] Bacteria identified Cx Nom (Unsp spec) Mixed skin davonte [facility] Interpretation and review of laboratory results Abnormal [facility] ECGOrdered By: Trinity de la o on 10-27-2024 [facility] Work Phone: GLUCOSE POCon 10-27-2024 Glucose [Mass/Vol] 102 mg/dL 70 - 179 mg/dL [facility] Glucose [Mass/Vol] 122 mg/dL 70 - 179 mg/dL [facility] Glucose [Mass/Vol] 115 mg/dL 70 - 179 mg/dL [facility] Glucose [Mass/Vol] 111 mg/dL 70 - 179 mg/dL [facility] Glucose [Mass/Vol] 126 mg/dL 70 - 179 mg/dL [facility] POC Sample Type CAPBL [facility] No Panel Informationon 10-27 POC Sample Type [facility] POC Sample Type CAPBL [facility] XR ABDOMEN 1 VIEW PORTABLEon 10-27-2024 XR [...] into a postpyloric location is recommended Normal [facility] XR Abdomen Single viewon RADIOLOGY RADIOLOGY [facility] Radiology Study observation (narrative) [facility] XR Abdomen Single viewOrdere d By: Jason Garcia on 10-27-2024 [facility] Work Phone: EXTRA MICROon 10-26-2024 [facility] GLUCOSE POCon 10-26-2024 Glucose [Mass/Vol] 123 mg/dL 70 - 179 mg/dL [facility] POC Sample Type CAPBL [facility] Glucose [Mass/Vol] 150 mg/dL 70 - 179 mg/dL [facility] POC Sample Type [facility] Glucose [Mass/Vol] 136 mg/dL 70 - 179 mg/dL [facility] POC Sample Type [facility] RF videography Hypopharynx a nd Esophagus Views W liquid and paste contrast PO during swallowingon 10-26-2024 RADIOLOGY RADIOLOGY [facility] Radiology Study observation (narrative) [facility] RF videography Hypopharynx a nd Esophagus Views W liquid and paste contrast PO during swallowingOrdered By: Sveta Morillo on 10-26-2024 [facility] Work Phone: SPEECH MODIFIED BARIUM SWALL on 10-26-2024 [facility] URINALYSIS REFLEX TO CULTURE PERFORMABLEOrdered By: Madhavi Lundberg on 10-26-2024 Appearance (U) Cloudy Abnormal Clear [facility] Bacteria LM Ql (Urine sed) PRESENT Abnormal ABSENT [facility] Color (U) Yellow Yellow [facility] Epithelial cells.squamous LM Ql (Urine sed) 0-2/hpf 0-2/hpf, 3-5/hpf = 1+ [facility] Glucose Test strip (U) [Mass/Vol] Negative Negative [facility] Interpretation and review of laboratory results Abnormal [facility] Ketones (U) [Mass/Vol] Negative Negative [facility] Leukocyte esterase Test strip Ql (U) Large Abnormal Negative [facility] Nitrite Ql (U) Positive Abnormal Negative [facility] pH (U) 6.5 [pH] 5.0 - 7.0 [facility] Protein (U) [Mass/Vol] Trace Abnormal Negative [facility] RBC (U) [#/Vol] Trace Abnormal Negative [facility] RBC LM.HPF (Urine sed) [#/Area] 3-5 Abnormal [facility] Specific gravity (U) [Rel density] 1.016 1.001 - 1.035 [facility] Urobilinogen (U) [Mass/Vol] 0.2 E.U./dL 0.2 E.U/dL, 1.0 E.U/dL [facility] WBC LM.HPF (Urine sed) [#/Area] /[HPF] Abnormal [facility] URINALYSIS REFLEX TO CULTURE PERFORMABLEon 10-26-2024 Appearance (U) Cloudy Abnormal Clear [facility] Comment on above: Order Comment: For i ndwelling catheters, specimen collection is acceptable on catheter day 1 and 2 only. ? Performed By: #### U [id number] #### [facility] (DEFAULT) [address] [place] [address] Bacteria PRESENT Abnormal ABSENT [facility] Comment on above: Order Comment: For i ndwelling catheters, specimen collection is acceptable on catheter day 1 and 2 only. ? Performed By: #### U [id number] #### [facility] (DEFAULT) [address] [place] [address] Blood Urine Trace Abnormal Negative [facility] Comment on above: Order Comment: For i ndwelling catheters, specimen collection is acceptable on catheter day 1 and 2 only. ? Performed By: #### U [id number] #### [facility] (DEFAULT) [address] [place] [address] Color (U) Yellow Normal Yellow [facility] Comment on above: Order Comment: For i ndwelling catheters, specimen collection is acceptable on catheter day 1 and 2 only. ? Performed By: #### U [id number] #### [facility] (DEFAULT) [address] [place] [address] Glucose Ql (U) Negative Normal Negative [facility] Comment on above: Order Comment: For i ndwelling catheters, specimen collection is acceptable on catheter day 1 and 2 only. ? Performed By: #### U [id number] #### [facility] (DEFAULT) [address] [place] [address] Ketones Ql (U) Negative Normal Negative [facility] Comment on above: Order Comment: For i ndwelling catheters, specimen collection is acceptable on catheter day 1 and 2 only. ? Performed By: #### U [id number] #### [facility] (DEFAULT) [address] [place] [address] Leukocyte esterase Test strip Ql (U) Large Abnormal Negative [facility] Comment on above: Order Comment: For i ndwelling catheters, specimen collection is acceptable on catheter day 1 and 2 only. ? Performed By: #### U [id number] #### [facility] (DEFAULT) [address] [place] [address] 117[address] Nitrites Urine Positive Abnormal Negative [facility] Comment on above: Order Comment: For i ndwelling catheters, specimen collection is acceptable on catheter day 1 and 2 only. ? Performed By: #### U [id number] #### [facility] (DEFAULT) [address] [place] [address] pH (U) 6.5 [pH] Normal 5.0-7.0 [facility] Comment on above: Order Comment: For i ndwelling catheters, specimen collection is acceptable on catheter day 1 and 2 only. ? Performed By: #### U [id number] #### [facility] (DEFAULT) [address] [place] [address] Protein Urine Trace Abnormal Negative [facility] Comment on above: Order Comment: For i ndwelling catheters, specimen collection is acceptable on catheter day 1 and 2 only. ? Performed By: #### U [id number] #### [facility] (DEFAULT) [address] [place] [address] RBC Urine 3-5 Abnormal 0-2 [facility] Comment on above: Order Comment: For i ndwelling catheters, specimen collection is acceptable on catheter day 1 and 2 only. ? Performed By: #### U [id number] #### [facility] (DEFAULT) [address] [place] [address] Specific [place] Urine 1.016 Normal 1.001-1.03 5 [facility] Comment on above: Order Comment: For i ndwelling catheters, specimen collection is acceptable on catheter day 1 and 2 only. ? Performed By: #### U [id number] #### U [facility] (DEFAULT) [address] [address] Squamous/Epithelial Cells, Urine 0-2/hpf Normal 0-2/hpf, 3-5/hpf = 1+ [facility] Comment on above: Order Comment: For i ndwelling catheters, specimen collection is acceptable on catheter day 1 and 2 only. ? Performed By: #### U [id number] #### U [facility] (DEFAULT) [address] [address] Urobilinogen Urine 0.2 E.U./dL Normal 0.2 E.U/dL, 1.0 E.U/dL [facility] Comment on above: Order Comment: For i ndwelling catheters, specimen collection is acceptable on catheter day 1 and 2 only. ? Performed By: #### U [id number] #### U [facility] (DEFAULT) [address] [address] WBC LM.HPF (Urine sed) [#/Area] /[HPF] Abnormal 0 - 5 [facility] Comment on above: Order Comment: For i ndwelling catheters, specimen collection is acceptable on catheter day 1 and 2 only. ? Performed By: #### U [id number] #### [facility] (DEFAULT) [address] [address] URINE CULTUREon 10-26-2024 Bacteria identified Cx Nom (U) Normal [facility] Comment on above: Order Comment: For [...] Performed By: #### U R #### U [facility] (DEFAULT) [address] [place] [address] XR FLUORO MODIFIED BARIUM SW ALLOW WITH [...] for further details and dietary recommendations. Normal [facility] 102on 10-25-2024 102 HNO ID: [id number] Author: CARLYLE HUANG HDA Service: ? Author Type: ? Type: 102 Filed: 10/25/2024 11:43 Note Text: Code Status: Full Code Normal [facility] CBC AND ELECTRONIC DIFFon Basophils (Bld) [#/Vol] 0.14 10*3/uL 0.00 - 0.15 K/uL [facility] Basophils/100 WBC (Bld) 1.4 % [facility] Differential cell count method Nom (Bld) Electronic [facility] Eosin[facility] (Bld[facility] [#/Vol] 1.14 10*3/uL High 0.00 - 0.42 K/uL [facility] Eosinophils/100 WBC (Bld) 11.4 % [facility] Erythrocyte distribution width (RBC) [Ratio] 13 % 10.8 - 14.9 % [facility] Hematocrit (Bld) [Volume fraction] 37.4 % 34.9 - 44.3 % [facility] Hemoglobin (Bld) [Mass/Vol] 11.9 g/dL 11.4 - 15.2 g/dL [facility] Immature granulocytes (Bld) [#/Vol] 0.06 10*3/uL NINF - 0.08 K/uL [facility] Immature granulocytes/100 WBC (Bld) 0.6 % [facility] Interpretation and review of laboratory results Abnormal [facility] Lymphocytes (Bld) [#/Vol] 1.15 10*3/uL Low 1.16 - 3.51 K/uL [facility] Lymphocytes/100 WBC (Bld) 11.5 % [facility] MCH (RBC) [Entitic mass] 31.1 pg 25.9 - 33.9 pg [facility] MCHC (RBC) [Mass/Vol] 31.8 g/dL 31.4 - 35.9 g/dL [facility] MCV (RBC) [Entitic vol] 97.7 fL 79.6 - 97.7 fL [facility] Monocytes (Bld) [#/Vol] 0.88 10*3/uL High 0.22 - 0.87 K/uL [facility] Monocytes/100 WBC (Bld) 8.8 % [facility] Neutrophils (Bld) [#/Vol] 6.66 10*3/uL 1.64 - 7.28 K/uL [facility] Nucleated RBC/100 WBC (Bld) [Ratio] 0 % [facility] Platelet mean volume (Bld) [Entitic vol] 9.4 fL 8.5 - 12.2 fL [facility] Platelets (Bld) [#/Vol] 349 10*3/uL 150 - 393 K/uL [facility] RBC (Bld) [#/Vol] 3.83 10*6/uL Low [facility] Segmented neutrophils/100 WBC (Bld) 66.3 % [facility] WBC (Bld) [#/Vol] 10.03 10*3/uL 3.99 - 11.19 K/uL [facility] Basophils (Bld) [#/Vol] 0.14 10*3/uL Normal 0.00-0.15 [facility] Comment on above: Performed By: #### U [id number] #### [facility] (DEFAULT) [address] [place] [address] Basophils/100 WBC (Bld) 1.4 % Normal [facility] Comment on above: Performed By: #### U [id number] #### [facility] (DEFAULT) [address] [address] DIFF STATUS Electronic Differential Normal [facility] Comment on above: Performed By: #### U [id number] #### [facility] (DEFAULT) [address] [place] [address] Eosinophils (Bld) [#/Vol] 1.14 10*3/uL High 0.00-0.42 [facility] Comment on above: Performed By: #### U [id number] #### [facility] (DEFAULT) [address] [place] [address] Eosinophils/100 WBC (Bld) 11.4 % Normal [facility] Comment on above: Performed By: #### U [id number] #### [facility] (DEFAULT) [address] [place] [address] Hematocrit (Bld) [Volume fraction] 37.4 % Normal 34.9-44.3 [facility] Comment on above: Performed By: #### U [id number] #### [facility] (DEFAULT) [address] [place] [address] Hemoglobin (Bld) [Mass/Vol] 11.9 g/dL Normal 11.4-15.2 [facility] Comment on above: Performed By: #### U [id number] #### [facility] (DEFAULT) [address] [address] Immature Grans % 0.6 % Normal [facility] Comment on above: Performed By: #### U [id number] #### U [facility] (DEFAULT) [address] [address] Immature Grans Absolute 0.06 K/uL Normal <=0.08 [facility] Comment on above: Performed By: #### U [id number] #### U [facility] (DEFAULT) [address] [address] Lymphocytes (Bld) [#/Vol] 1.15 10*3/uL Low 1.16-3.51 [facility] Comment on above: Performed By: #### U [id number] #### U [facility] (DEFAULT) [address] [address] Lymphocytes/100 WBC (Bld) 11.5 % Normal [facility] Comment on above: Performed By: #### U [id number] #### U [facility] (DEFAULT) [address] [address] MCV (RBC) [Entitic vol] 97.7 fL Normal 79.6-97.7 [facility] Comment on above: Performed By: #### U [id number] #### [facility] (DEFAULT) [address] [address] Mean Cell Hgb 31.1 pg Normal 25.9-33.9 [facility] Comment on above: Performed By: #### U [id number] #### U [facility] (DEFAULT) [address] [address] Mean Cell Hgb Conc 31.8 g/dL Normal 31.4-35.9 [facility] Comment on above: Performed By: #### U [id number] #### U [facility] (DEFAULT) [address] [address] Monocytes (Bld) [#/Vol] 0.88 10*3/uL High 0.22-0.87 [facility] Comment on above: Performed By: #### U [id number] #### [facility] (DEFAULT) [address] [place] [address] Monocytes/100 WBC (Bld) 8.8 % Normal [facility] Comment on above: Performed By: #### U [id number] #### [facility] (DEFAULT) [address] [place] [address] Nucleated RBC 0.0 /100 WBC Normal <=0.2 [facility] Comment on above: Performed By: #### U [id number] #### [facility] (DEFAULT) [address] [place] [address] Platelet mean volume (Bld) [Entitic vol] 9.4 fL Normal 8.5-12.2 [facility] Comment on above: Performed By: #### U [id number] #### [facility] (DEFAULT) [address] [address] Platelets (Bld) [#/Vol] 349 10*3/uL Normal 150-393 [facility] Comment on above: Performed By: #### U [id number] #### [facility] (DEFAULT) [address] [address] RBC (Bld) [#/Vol] 3.83 10*6/uL Low 3.91-5.04 [facility] Comment on above: Performed By: #### U [id number] #### [facility] (DEFAULT) [address] [place] [address] RBC Distribution 13.0 % Normal 10.8-14.9 [facility] Comment on above: Performed By: #### U [id number] #### [facility] (DEFAULT) [address] [address] Segs + Bands Auto 66.3 % Normal [facility] Comment on above: Performed By: #### U [id number] #### U [facility] (DEFAULT) [address] [place] [address] Segs + Bands,Absolute Auto 6.66 K/uL Normal 1.64-7.28 [facility] Comment on above: Performed By: #### U [id number] #### [facility] (DEFAULT) [address] [place] [address] WBC (Bld) [#/Vol] 10.03 10*3/uL Normal 3.99-11.19 [facility] Comment on above: Performed By: #### U [id number] #### [facility] (DEFAULT) [address] [address] CHEM 7 (LYTES,BUN,CREA,GLUC) on 10-25-2024 Anion gap [Moles/Vol] 14 mmol/L 7 - 17 mmol/L [facility] Chloride [Moles/Vol] 102 mmol/L 98 - 10 8 mmol/L [facility] CO2 [Moles/Vol] 26 mmol/L 21 - 31 mmol/L [facility] Creatinine [Mass/Vol] 0.76 mg/dL 0.50 - 1.20 mg/dL [facility] eGFR, CKD-EPI, Female 76 - PINF [facility] Glucose [Mass/Vol] 124 mg/dL 70 - 179 mg/dL [facility] Interpretation and review of laboratory results Abnormal [facility] Osmolality Calc [Osmolality] 297 [facility] Potassium [Moles/Vol] 4.7 mmol/L 3.5 - 5.0 mmol/L [facility] Sodium [Moles/Vol] 137 mmol/L 135 - 145 mmol/L [facility] Urea nitrogen [Mass/Vol] 31 mg/dL High 7 - 25 mg/dL [facility] Urea nitrogen/Creatinine [Mass ratio] 41 mg/mg [facility] Anion gap [Moles/Vol] 14 mmol/L Normal 7-17 [facility] Comment on above: Performed By: #### U R #### [facility] (DEFAULT) [address] [place] [address] Chloride [Moles/Vol] 102 mmol/L Normal 98-108 [facility] Comment on above: Performed By: #### U R #### U [facility] (DEFAULT) [address] [place] [address] CO2 [Moles/Vol] 26 mmol/L Normal 21-31 [facility] Comment on above: Performed By: #### U R #### U [facility] (DEFAULT) [address] [place] [address] Creatinine [Mass/Vol] 0.76 mg/dL Normal 0.50-1.20 [facility] Comment on above: Performed By: #### U R #### [facility] (DEFAULT) [address] [address] GFR/1.73 sq M.predicted among non-blacks MDRD (S/P/Bld) [Vol rate/Area] 76 mL/min/{1.73_m2} Normal >=60 [facility] Comment on above: Result Comment: Repo rted eGFR is based on the CKD-EPI 2020 equation using creatinine, age, and sex. Performed By: #### U R #### U [facility] (DEFAULT) [address] [address] Glucose [Mass/Vol] 124 mg/dL Normal Nonfastin g : 70-179 mg/dL; Fastin-99 [facility] Comment on above: Performed By: #### U R #### U [facility] (DEFAULT) [address] [address] Osmolality [Osmolality] 297 mosm/kg Normal 278-305 [facility] Comment on above: Performed By: #### U R #### [facility] (DEFAULT) [address] [address] Potassium [Moles/Vol] 4.7 mmol/L Normal 3.5-5.0 [facility] Comment on above: Performed By: #### U R #### [facility] (DEFAULT) [address] [place] [address] Sodium [Moles/Vol] 137 mmol/L Normal 135-145 [facility] Comment on above: Performed By: #### U R #### [facility] (DEFAULT) [address] [place] [address] Urea nitrogen [Mass/Vol] 31 mg/dL High 7-25 [facility] Comment on above: Performed By: #### U R #### U [facility] (DEFAULT) [address] [place] [address] Urea nitrogen/Creatinine [Mass ratio] 41 mg/mg Normal [facility] Comment on above: Performed By: #### U R #### [facility] (DEFAULT) [address] [place] [address] GLUCOSE POCon 10-25-2024 Glucose [Mass/Vol] 132 mg/dL 70 - 179 mg/dL [facility] POC Sample Type CAPBL [facility] Glucose [Mass/Vol] 115 mg/dL 70 - 179 mg/dL [facility] POC Sample Type CAPBL [facility] URINE CULTUREon 10-25-2024 Bacteria identified Cx Nom (Unsp spec) [facility] EXTRA MICROon 10-24-2024 [facility] GLUCOSE POCon 10-24-2024 Glucose [Mass/Vol] 135 mg/dL 70 - 179 mg/dL [facility] POC Sample Type [facility] Glucose [Mass/Vol] 149 mg/dL 70 - 179 mg/dL [facility] POC Sample Type [facility] Glucose [Mass/Vol] 108 mg/dL 70 - 179 mg/dL [facility] POC Sample Type CAPBL [facility] Glucose [Mass/Vol] 148 mg/dL 70 - 179 mg/dL [facility] POC Sample Type CAPBL [facility] URINALYSIS REFLEX TO CULTURE PERFORMABLEOrdered By: Jennifer Sharma on 10-24-2024 Appearance (U) Cloudy Abnormal Clear [facility] Bacteria LM Ql (Urine sed) ABSENT ABSENT [facility] Color (U) Yellow Yellow [facility] Epithelial cells.squamous LM Ql (Urine sed) 0-2/hpf 0-2/hpf, 3-5/hpf = 1+ [facility] Glucose Test strip (U) [Mass/Vol] Negative Negative [facility] Hyaline casts (Urine sed) [#/Area] 0 - 2 Abnormal (none) /LPF [facility] Interpretation and review of laboratory results Abnormal [facility] Ketones (U) [Mass/Vol] Negative Negative [facility] Leukocyte esterase Test strip Ql (U) Moderate Abnormal Negative [facility] Mucus Ql (Urine sed) PRESENT [facility] Nitrite Ql (U) Negative Negative [facility] pH (U) 6.5 [pH] 5.0 - 7.0 [facility] Protein (U) [Mass/Vol] Trace Abnormal Negative [facility] RBC (U) [#/Vol] Negative Negative [facility] RBC LM.HPF (Urine sed) [#/Area] 11-25 Abnormal [facility] Specific gravity (U) [Rel density] 1.018 1.001 - 1.035 [facility] Urobilinogen (U) [Mass/Vol] 0.2 E.U./dL 0.2 E.U/dL, 1.0 E.U/dL [facility] WBC LM.HPF (Urine sed) [#/Area] /[HPF] [facility]normal [facility] URINALYSIS REFLEX TO CULTURE PERFORMABLEon 10-24-2024 Appearance (U) Cloudy Abnormal Clear [facility] Comment on above: Order Comment: For i ndwelling catheters, specimen collection is acceptable on catheter day 1 and 2 only. ? Performed By: #### A 1CB, [id number] #### U [facility] (DEFAULT) [address] [place] [address] Bacteria ABSENT Normal ABSENT [facility] Comment on above: Order Comment: For i ndwelling catheters, specimen collection is acceptable on catheter day 1 and 2 only. ? Performed By: #### A 1CB, [id number] #### [facility] (DEFAULT) [address] [place] [address] Blood Urine Negative Normal Negative [facility] Comment on above: Order Comment: For i ndwelling catheters, specimen collection is acceptable on catheter day 1 and 2 only. ? Performed By: #### A 1CB, [id number] #### [facility] (DEFAULT) [address] [place] [address] Color (U) Yellow Normal Yellow [facility] Comment on above: Order Comment: For i ndwelling catheters, specimen collection is acceptable on catheter day 1 and 2 only. ? Performed By: #### A 1CB, [id number] #### [facility] (DEFAULT) [address] [place] [address] Glucose Ql (U) Negative Normal Negative [facility] Comment on above: Order Comment: For i ndwelling catheters, specimen collection is acceptable on catheter day 1 and 2 only. ? Performed By: #### A 1CB, [id number] #### U [facility] (DEFAULT) [address] [place] [address] Hyaline casts LM Ql (Urine sed) 0 - 2 Abnormal (none) [facility] Comment on above: Order Comment: For i ndwelling catheters, specimen collection is acceptable on catheter day 1 and 2 only. ? Performed By: #### A 1CB, [id number] #### [facility] (DEFAULT) [address] [place] [address] Ketones Ql (U) Negative Normal Negative [facility] Comment on above: Order Comment: For i ndwelling catheters, specimen collection is acceptable on catheter day 1 and 2 only. ? Performed By: #### A 1CB, [id number] #### U [facility] (DEFAULT) [address] [place] [address] Leukocyte esterase Test strip Ql (U) Moderate Abnormal Negative [facility] Comment on above: Order Comment: For i ndwelling catheters, specimen collection is acceptable on catheter day 1 and 2 only. ? Performed By: #### A 1CB, [id number] #### [facility] (DEFAULT) [address] [place] [address] Mucus Ql (Urine sed) PRESENT Normal [facility] Comment on above: Order Comment: For i ndwelling catheters, specimen collection is acceptable on catheter day 1 and 2 only. ? Performed By: #### A 1CB, [id number] #### [facility] (DEFAULT) [address] [place] [address] Nitrites Urine Negative Normal Negative [facility] Comment on above: Order Comment: For i ndwelling catheters, specimen collection is acceptable on catheter day 1 and 2 only. ? Performed By: #### A 1CB, [id number] #### [facility] (DEFAULT) [address] [place] [address] pH (U) 6.5 [pH] Normal 5.0-7.0 [facility] Comment on above: Order Comment: For i ndwelling catheters, specimen collection is acceptable on catheter day 1 and 2 only. ? Performed By: #### A 1CB, [id number] #### [facility] (DEFAULT) [address] [place] [address] Protein Urine Trace Abnormal Negative [facility] Comment on above: Order Comment: For i ndwelling catheters, specimen collection is acceptable on catheter day 1 and 2 only. ? Performed By: #### A 1CB, [id number] #### [facility] (DEFAULT) [address] [place] [address] RBC Urine 11-25 Abnormal 0-2 [facility] Comment on above: Order Comment: For i ndwelling catheters, specimen collection is acceptable on catheter day 1 and 2 only. ? Performed By: #### A 1CB, [id number] #### [facility] (DEFAULT) [address] [address] Specific Frederick Urine 1.018 Normal 1.001-1.03 5 [facility] Comment on above: Order Comment: For i ndwelling catheters, specimen collection is acceptable on catheter day 1 and 2 only. ? Performed By: #### A 1CB, [id number] #### [facility] (DEFAULT) [address] [place] [address] Squamous/Epithelial Cells, Urine 0-2/hpf Normal 0-2/hpf, 3-5/hpf = 1+ [facility] Comment on above: Order Comment: For i ndwelling catheters, specimen collection is acceptable on catheter day 1 and 2 only. ? Performed By: #### A 1CB, [id number] #### [facility] (DEFAULT) [address] [address] Urobilinogen Urine 0.2 E.U./dL Normal 0.2 E.U/dL, 1.0 E.U/dL [facility] Comment on above: Order Comment: For i ndwelling catheters, specimen collection is acceptable on catheter day 1 and 2 only. ? Performed By: #### A 1CB, [id number] #### [facility] (DEFAULT) [address] [address] WBC LM.HPF (Urine sed) [#/Area] /[HPF] Abnormal 0 - 5 [facility] Comment on above: Order Comment: For i ndwelling catheters, specimen collection is acceptable on catheter day 1 and 2 only. ? Performed By: #### A 1CB, [id number] #### [facility] (DEFAULT) [address] [address] URINE CULTUREon 10-24-2024 Bacteria identified Cx Nom (U) No Growth Normal [facility] Comment on above: Order Comment: For [...] >=100,000 CFU/mL. Performed By: #### A 1CB, [id number] #### [facility] (DEFAULT) [address] [place] [address] XR ABDOMEN 1 VIEW PORTABLEon 10-24-2024 XR [...] stool ball. Nonobstructive bowel gas pattern. Normal [facility] XR Abdomen Single viewon RADIOLOGY RADIOLOGY [facility] Rad[facility] Single viewOrdere d By: Angel Conner on 10-24-2024 [facility] Work Phone: GLUCOSE POCon 10-23-2024 Glucose [Mass/Vol] 138 mg/dL 70 - 179 mg/dL [facility] POC Sample Type CAPBL [facility] Glucose [Mass/Vol] 113 mg/dL 70 - 179 mg/dL [facility] POC Sample Type [facility]BL [facility] Glucose [Mass/Vol] 109 mg/dL 70 - 179 mg/dL [facility] POC Sample Type CAPBL [facility] Glucose [Mass/Vol] 142 mg/dL 70 - 179 mg/dL [facility] POC Sample Type CAPBL [facility] CALCIUMon 10-22-2024 Calcium [Mass/Vol] 9.6 mg/dL 8.6 - 10. 5 mg/dL [facility] Calcium [Mass/Vol] 9.6 mg/dL Normal 8.6-10.5 [facility] Comment on above: Performed By: #### C HM7 #### [facility] (DEFAULT) [address] [place] [address] CBC AND ELECTRONIC DIFFon Basophils (Bld) [#/Vol] 0.16 10*3/uL High 0.00 - 0.15 K/uL [facility] Basophils/100 WBC (Bld) 1.3 % [facility] Differential cell count method Nom (Bld) Electronic Differential [facility] Eosinophils (Bld) [#/Vol] 0.69 10*3/uL High 0.00 - 0.42 K/uL [facility] Eosinophils/100 WBC (Bld) 5.5 % [facility] Erythrocyte distribution width (RBC) [Ratio] 13.1 % 10.8 - 14.9 % [facility] Hematocrit (Bld) [Volume fraction] 43.3 % 34.9 - 44.3 % [facility] Hemoglobin (Bld) [Mass/Vol] 13.8 g/dL 11.4 - 15.2 g/dL [facility] Immature granulocytes (Bld) [#/Vol] 0.06 10*3/uL NINF - 0.08 K/uL [facility] Immature granulocytes/100 WBC (Bld) 0.5 % [facility] Interpretation and review of laboratory results Abnormal [facility] Lymphocytes (Bld) [#/Vol] 1.66 10*3/uL 1.16 - 3.51 K/uL [facility] Lymphocytes/100 WBC (Bld) 13.2 % [facility] MCH (RBC) [Entitic mass] 30.8 pg 25.9 - 33.9 pg [facility] MCHC (RBC) [Mass/Vol] 31.9 g/dL 31.4 - 35.9 g/dL [facility] MCV (RBC) [Entitic vol] 96.7 fL 79.6 - 97.7 fL [facility] Monocytes (Bld) [#/Vol] 1.09 10*3/uL High 0.22 - 0.87 K/uL [facility] Monocytes/100 WBC (Bld) 8.7 % [facility] Neutrophils (Bld) [#/Vol] 8.89 10*3/uL High 1.64 - 7.28 K/uL [facility] Nucleated RBC/100 WBC (Bld) [Ratio] 0 % NINF [facility] Platelet mean volume (Bld) [Entitic vol] 9.4 fL 8.5 - 12.2 fL [facility] Platelets (Bld) [#/Vol] 323 10*3/uL 150 - 393 K/uL [facility] RBC (Bld) [#/Vol] 4.48 10*6/uL [facility] Segmented neutrophils/100 WBC (Bld) 70.8 % [facility] WBC (Bld) [#/Vol] 12.55 10*3/uL High 3.99 - 11.19 K/uL [facility] Basophils (Bld) [#/Vol] 0.16 10*3/uL High 0.00-0.15 [facility] Comment on above: Performed By: #### U R #### [facility] (DEFAULT) [address] [address] Basophils/100 WBC (Bld) 1.3 % Normal [facility] Comment on above: Performed By: #### U R #### [facility] (DEFAULT) [address] [address] DIFF STATUS Electronic Differential Normal [facility] Comment on above: Performed By: #### U R #### [facility] (DEFAULT) [address] [address] Eosinophils (Bld) [#/Vol] 0.69 10*3/uL High 0.00-0.42 [facility] Comment on above: Performed By: #### U R #### [facility] (DEFAULT) [address] [address] Eosinophils/100 WBC (Bld) 5.5 % Normal [facility] Comment on above: Performed By: #### U R #### [facility] (DEFAULT) [address] [address] Hematocrit (Bld) [Volume fraction] 43.3 % Normal 34.9-44.3 [facility] Comment on above: Performed By: #### U R #### [facility] (DEFAULT) [address] [address] Hemoglobin (Bld) [Mass/Vol] 13.8 g/dL Normal 11.4-15.2 [facility] Comment on above: Performed By: #### U R #### [facility] (DEFAULT) [address] [address] Immature Grans % 0.5 % Normal [facility] Comment on above: Performed By: #### U R #### [facility] (DEFAULT) [address] [address] Immature Grans Absolute 0.06 K/uL Normal <=0.08 [facility] Comment on above: Performed By: #### U R #### [facility] (DEFAULT) [address] [address] Lymphocytes (Bld) [#/Vol] 1.66 10*3/uL Normal 1.16-3.51 [facility] Comment on above: Performed By: #### U R #### [facility] (DEFAULT) [address] [address] Lymphocytes/100 WBC (Bld) 13.2 % Normal [facility] Comment on above: Performed By: #### U R #### [facility] (DEFAULT) [address] [address] MCV (RBC) [Entitic vol] 96.7 fL Normal 79.6-97.7 [facility] Comment on above: Performed By: #### U R #### [facility] (DEFAULT) [address] [address] Mean Cell Hgb 30.8 pg Normal 25.9-33.9 [facility] Comment on above: Performed By: #### U R #### [facility] (DEFAULT) [address] [address] Mean Cell Hgb Conc 31.9 g/dL Normal 31.4-35.9 [facility] Comment on above: Performed By: #### U R #### [facility] (DEFAULT) [address] [address] Monocytes (Bld) [#/Vol] 1.09 10*3/uL High 0.22-0.87 [facility] Comment on above: Performed By: #### U R #### [facility] (DEFAULT) [address] [address] Monocytes/100 WBC (Bld) 8.7 % Normal [facility] Comment on above: Performed By: #### U R #### [facility] (DEFAULT) [address] [address] Nucleated RBC 0.0 /100 WBC Normal <=0.2 [facility] Comment on above: Performed By: #### U R #### [facility] (DEFAULT) [address] [address] Platelet mean volume (Bld) [Entitic vol] 9.4 fL Normal 8.5-12.2 [facility] Comment on above: Performed By: #### U R #### [facility] (DEFAULT) [address] [place] [address] Platelets (Bld) [#/Vol] 323 10*3/uL Normal 150-393 [facility] Comment on above: Performed By: #### U R #### [facility] (DEFAULT) [address] [place] [address] RBC (Bld) [#/Vol] 4.48 10*6/uL Normal 3.91-5.04 [facility] Comment on above: Performed By: #### U R #### [facility] (DEFAULT) [address] [place] [address] RBC Distribution 13.1 % Normal 10.8-14.9 [facility] Comment on above: Performed By: #### U R #### [facility] (DEFAULT) [address] [place] [address] Segs + Bands Auto 70.8 % Normal [facility] Comment on above: Performed By: #### U R #### [facility] (DEFAULT) [address] [place] [address] Segs + Bands,Absolute Auto 8.89 K/uL High 1.64-7.28 [facility] Comment on above: Performed By: #### U R #### [facility] (DEFAULT) [address] [place] [address] WBC (Bld) [#/Vol] 12.55 10*3/uL High 3.99-11.19 [facility] Comment on above: Performed By: #### U R #### [facility] (DEFAULT) [address] [place] [address] CHEM 7 (LYTES,BUN,CREA,GLUC) on 10-22-2024 Anion gap [Moles/Vol] 11 mmol/L 7 - 17 mmol/L [facility] Chloride [Moles/Vol] 104 mmol/L 98 - 10 8 mmol/L [facility] CO2 [Moles/Vol] 29 mmol/L 21 - 31 mmol/L [facility] Creatinine [Mass/Vol] 0.71 mg/dL 0.50 - 1.20 mg/dL [facility] eGFR, CKD-EPI, Female 83 - PINF [facility] Glucose [Mass/Vol] 112 mg/dL 70 - 179 mg/dL [facility] Osmolality Calc [Osmolality] 297 [facility] Potassium [Moles/Vol] 4.7 mmol/L 3.5 - 5.0 mmol/L [facility] Sodium [Moles/Vol] 139 mmol/L 135 - 145 mmol/L [facility] Urea nitrogen [Mass/Vol] 24 mg/dL 7 - 25 mg/dL [facility] Urea nitrogen/Creatinine [Mass ratio] 34 mg/mg [facility] Anion gap [Moles/Vol] 11 mmol/L Normal 7-17 [facility] Comment on above: Performed By: #### T YPEC #### [facility] (DEFAULT) [address] [address] Chloride [Moles/Vol] 104 mmol/L Normal 98-108 [facility] Comment on above: Performed By: #### T YPEC #### [facility] (DEFAULT) [address] [address] CO2 [Moles/Vol] 29 mmol/L Normal 21-31 [facility] Comment on above: Performed By: #### T YPEC #### [facility] (DEFAULT) [address] [address] Creatinine [Mass/Vol] 0.71 mg/dL Normal 0.50-1.20 [facility] Comment on above: Performed By: #### T YPEC #### [facility] (DEFAULT) [address] [address] GFR/1.73 sq M.predicted among non-blacks MDRD (S/P/Bld) [Vol rate/Area] 83 mL/min/{1.73_m2} Normal >=60 [facility] Comment on above: Result Comment: Repo rted eGFR is based on the CKD-EPI 2020 equation using creatinine, age, and sex. Performed By: #### T YPEC #### [facility] (DEFAULT) [address] [place] [address] Glucose [Mass/Vol] 112 mg/dL Normal Nonfastin g : 70-179 mg/dL; Fastin-99 [facility] Comment on above: Performed By: #### T YPEC #### [facility] (DEFAULT) [address] [place] [address] Osmolality [Osmolality] 297 mosm/kg Normal 278-305 [facility] Comment on above: Performed By: #### T YPEC #### [facility] (DEFAULT) [address] [place] [address] Potassium [Moles/Vol] 4.7 mmol/L Normal 3.5-5.0 [facility] Comment on above: Performed By: #### T YPEC #### [facility] (DEFAULT) [address] [place] [address] Sodium [Moles/Vol] 139 mmol/L Normal 135-145 [facility] Comment on above: Performed By: #### T YPEC #### [facility] (DEFAULT) [address] [place] [address] Urea nitrogen [Mass/Vol] 24 mg/dL Normal 7-25 [facility] Comment on above: Performed By: #### T YPEC #### [facility] (DEFAULT) [address] [place] [address] Urea nitrogen/Creatinine [Mass ratio] 34 mg/mg Normal [facility] Comment on above: Performed By: #### T YPEC #### [facility] (DEFAULT) [address] [place] [address] FLEXIBLE ENDOSCOPIC EVALUATI ON OF SWALLOWINGon 10-22-2024 RADIOLOGY FLEXIBLE ENDOSCOPIC EVALUATI ON OF SWALLOWINGOrdered By: Unassigned Pacs on 10-22-2024 [facility] Work Phone: GLUCOSE POCon 10-22-2024 Glucose [Mass/Vol] 154 mg/dL 70 - 179 mg/dL [facility] POC Sample Type CAPBL [facility] Glucose [Mass/Vol] 152 mg/dL 70 - 179 mg/dL [facility] POC Sample Type CAPBL [facility] Glucose [Mass/Vol] 119 mg/dL 70 - 179 mg/dL [facility] POC Sample Type CAPBL [facility] Glucose [Mass/Vol] 141 mg/dL 70 - 179 mg/dL [facility] POC Sample Type [facility]BL [facility] MAGNESIUMon 10-22-2024 Magnesium [Mass/Vol] 2.2 mg/dL 1.6 - 2 .6 mg/dL [facility] Magnesium [Mass/Vol] 2.2 mg/dL Normal 1.6-2.6 [facility] Comment on above: Performed By: #### C HM7 #### [facility] (DEFAULT) [address] [place] [address] No Panel Informationon 10-22 [facility] Interpretation and review of laboratory results Normal [facility] PT,INR,PTTon 10-22-2024 aPTT Coag (PPP) [Time] 29.8 s [facility] INR Coag (Bld) [Relative time] 1 {INR} 0.9 - 1.1 [facility] Interpretation and review of laboratory results Normal [facility] PT Coag (PPP) [Time] 13 s [facility] aPTT Coag (Bld) [Time] 29.8 s Normal 24.0-34.3 [facility] Comment on above: Performed By: #### U [id number] #### [facility] (DEFAULT) [address] [place] [address] INR Coag (PPP) [Relative time] 1.0 {INR} Normal 0.9-1.1 [facility] Comment on above: Performed By: #### U [id number] #### [facility] (DEFAULT) [address] [place] [address] PT Coag (PPP) [Time] 13.0 s Normal 11.9-14.2 [facility] Comment on above: Performed By: #### U [id number] #### [facility] (DEFAULT) [address] [place] [address] CALCIUMon 10-21-2024 Calcium [Mass/Vol] 9 mg/dL 8.6 - 10. 5 mg/dL [facility] Calcium [Mass/Vol] 9.0 mg/dL Normal 8.6-10.5 [facility] Comment on above: Performed By: #### C HM7 #### [facility] (DEFAULT) [address] [place] [address] CBC AND ELECTRONIC DIFFon Basophils (Bld) [#/Vol] 0.13 10*3/uL 0.00 - 0.15 K/uL [facility] Basophils/100 WBC (Bld) 1.2 % [facility] Differential cell count method Nom (Bld) Electronic Differential [facility] Eosinophils (Bld) [#/Vol] 1.1 10*3/uL High 0.00 - 0.42 K/uL [facility] Eosinophils/100 WBC (Bld) 10.5 % [facility] Erythrocyte distribution width (RBC) [Ratio] 13.1 % 10.8 - 14.9 % [facility] Hematocrit (Bld) [Volume fraction] 44.6 % High 34.9 - 44.3 % [facility] Hemoglobin (Bld) [Mass/Vol] 14.3 g/dL 11.4 - 15.2 g/dL [facility] Immature granulocytes (Bld) [#/Vol] 0.04 10*3/uL NINF - 0.08 K/uL [facility] Immature granulocytes/100 WBC (Bld) 0.4 % [facility] Interpretation and review of laboratory results Abnormal [facility] Lymphocytes (Bld) [#/Vol] 1.53 10*3/uL 1.16 - 3.51 K/uL [facility] Lymphocytes/100 WBC (Bld) 14.7 % [facility] MCH (RBC) [Entitic mass] 31 pg 25.9 - 33.9 pg [facility] MCHC (RBC) [Mass/Vol] 32.1 g/dL 31.4 - 35.9 g/dL [facility] MCV (RBC) [Entitic vol] 96.5 fL 79.6 - 97.7 fL [facility] Monocytes (Bld) [#/Vol] 0.76 10*3/uL 0.22 - 0.87 K/uL [facility] Monocytes/100 WBC (Bld) 7.3 % [facility] Neutrophils (Bld) [#/Vol] 6.87 10*3/uL 1.64 - 7.28 K/uL [facility] Nucleated RBC/100 WBC (Bld) [Ratio] 0 % [facility] Platelet mean volume (Bld) [Entitic vol] 9.2 fL 8.5 - 12.2 fL [facility] Platelets (Bld) [#/Vol] 333 10*3/uL 150 - 393 K/uL [facility] RBC (Bld) [#/Vol] 4.62 10*6/uL [facility] Segmented neutrophils/100 WBC (Bld) 65.9 % [facility] WBC (Bld) [#/Vol] 10.43 10*3/uL 3.99 - 11.19 K/uL [facility] Basophils (Bld) [#/Vol] 0.13 10*3/uL Normal 0.00-0.15 [facility] Comment on above: Performed By: #### C HM7 #### [facility] (DEFAULT) [address] [place] [address] Basophils/100 WBC (Bld) 1.2 % Normal [facility] Comment on above: Performed By: #### C HM7 #### [facility] (DEFAULT) [address] [address] DIFF STATUS Electronic Differential Normal [facility] Comment on above: Performed By: #### C HM7 #### [facility] (DEFAULT) [address] [address] Eosinophils (Bld) [#/Vol] 1.10 10*3/uL High 0.00-0.42 [facility] Comment on above: Performed By: #### C HM7 #### [facility] (DEFAULT) [address] [address] Eosinophils/100 WBC (Bld) 10.5 % Normal [facility] Comment on above: Performed By: #### C HM7 #### [facility] (DEFAULT) [address] [address] Hematocrit (Bld) [Volume fraction] 44.6 % High 34.9-44.3 [facility] Comment on above: Performed By: #### C HM7 #### [facility] (DEFAULT) [address] [address] Hemoglobin (Bld) [Mass/Vol] 14.3 g/dL Normal 11.4-15.2 [facility] Comment on above: Performed By: #### C HM7 #### [facility] (DEFAULT) [address] [address] Immature Grans % 0.4 % Normal [facility] Comment on above: Performed By: #### C HM7 #### [facility] (DEFAULT) [address] [address] Immature Grans Absolute 0.04 K/uL Normal <=0.08 [facility] Comment on above: Performed By: #### C HM7 #### [facility] (DEFAULT) [address] [address] Lymphocytes (Bld) [#/Vol] 1.53 10*3/uL Normal 1.16-3.51 [facility] Comment on above: Performed By: #### C HM7 #### [facility] (DEFAULT) [address] [address] Lymphocytes/100 WBC (Bld) 14.7 % Normal [facility] Comment on above: Performed By: #### C HM7 #### [facility] (DEFAULT) [address] [address] MCV (RBC) [Entitic vol] 96.5 fL Normal 79.6-97.7 [facility] Comment on above: Performed By: #### C HM7 #### [facility] (DEFAULT) [address] [address] Mean Cell Hgb 31.0 pg Normal 25.9-33.9 [facility] Comment on above: Performed By: #### C HM7 #### [facility] (DEFAULT) [address] [address] Mean Cell Hgb Conc 32.1 g/dL Normal 31.4-35.9 [facility] Comment on above: Performed By: #### C HM7 #### [facility] (DEFAULT) [address] [address] Monocytes (Bld) [#/Vol] 0.76 10*3/uL Normal 0.22-0.87 [facility] Comment on above: Performed By: #### C HM7 #### [facility] (DEFAULT) [address] [address] Monocytes/100 WBC (Bld) 7.3 % Normal [facility] Comment on above: Performed By: #### C HM7 #### [facility] (DEFAULT) [address] [place] [address] Nucleated RBC 0.0 /100 WBC Normal <=0.2 [facility] Comment on above: Performed By: #### C HM7 #### [facility] (DEFAULT) [address] [place] [address] Platelet mean volume (Bld) [Entitic vol] 9.2 fL Normal 8.5-12.2 [facility] Comment on above: Performed By: #### C HM7 #### [facility] (DEFAULT) [address] [place] [address] Platelets (Bld) [#/Vol] 333 10*3/uL Normal 150-393 [facility] Comment on above: Performed By: #### C HM7 #### [facility] (DEFAULT) [address] [place] [address] RBC (Bld) [#/Vol] 4.62 10*6/uL Normal 3.91-5.04 [facility] Comment on above: Performed By: #### C HM7 #### [facility] (DEFAULT) [address] [place] [address] RBC Distribution 13.1 % Normal 10.8-14.9 [facility] Comment on above: Performed By: #### C HM7 #### [facility] (DEFAULT) [address] [place] [address] Segs + Bands Auto 65.9 % Normal [facility] Comment on above: Performed By: #### C HM7 #### [facility] (DEFAULT) [address] [place] [address] Segs + Bands,Absolute Auto 6.87 K/uL Normal 1.64-7.28 [facility] Comment on above: Performed By: #### C HM7 #### [facility] (DEFAULT) [address] [place] [address] WBC (Bld) [#/Vol] 10.43 10*3/uL Normal 3.99-11.19 [facility] Comment on above: Performed By: #### C HM7 #### [facility] (DEFAULT) [address] [place] [address] CHEM 7 (LYTES,BUN,CREA,GLUC) on 10-21-2024 Anion gap [Moles/Vol] 13 mmol/L 7 - 17 mmol[facility] Chloride [Moles/Vol] 103 mmol/L 98 - 10 8 mmol/L [facility] CO2 [Moles/Vol] 26 mmol/L 21 - 31 mmol/L [facility] Creatinine [Mass/Vol] 0.78 mg/dL 0.50 - 1.20 mg/dL [facility] eGFR, CKD-EPI, Female 74 - PINF [facility] Glucose [Mass/Vol] 106 mg/dL 70 - 179 mg/dL [facility] Osmolality Calc [Osmolality] 293 [facility] Potassium [Moles/Vol] 4.4 mmol/L 3.5 - 5.0 mmol/L [facility] Sodium [Moles/Vol] 138 mmol/L 135 - 145 mmol/L [facility] Urea nitrogen [Mass/Vol] 21 mg/dL 7 - 25 mg/dL [facility] Urea nitrogen/Creatinine [Mass ratio] 27 mg/mg [facility] Anion gap [Moles/Vol] 13 mmol/L Normal 7-17 [facility] Comment on above: Performed By: #### C HM7 #### [facility] (DEFAULT) [address] [place] [address] Chloride [Moles/Vol] 103 mmol/L Normal 98-108 [facility] Comment on above: Performed By: #### C HM7 #### [facility] (DEFAULT) [address] [place] [address] CO2 [Moles/Vol] 26 mmol/L Normal 21-31 [facility] Comment on above: Performed By: #### C HM7 #### [facility] (DEFAULT) [address] [place] [address] Creatinine [Mass/Vol] 0.78 mg/dL Normal 0.50-1.20 [facility] Comment on above: Performed By: #### C HM7 #### U [facility] (DEFAULT) [address] [place] [address] GFR/1.73 sq M.predicted among non-blacks MDRD (S/P/Bld) [Vol rate/Area] 74 mL/min/{1.73_m2} Normal >=60 [facility] Comment on above: Result Comment: Repo rted eGFR is based on the CKD-EPI 2020 equation using creatinine, age, and sex. Performed By: #### C HM7 #### U [facility] (DEFAULT) [address] [place] [address] Glucose [Mass/Vol] 106 mg/dL Normal Nonfastin g : 70-179 mg/dL; Fastin-99 [facility] Comment on above: Performed By: #### C HM7 #### [facility] (DEFAULT) [address] [place], [place] [address] Osmolality [Osmolality] 293 mosm/kg Normal 278-305 [facility] Comment on above: Performed By: #### C HM7 #### U [facility] (DEFAULT) [address] [place] [address]12 Potassium [Moles/Vol] 4.4 mmol/L Normal 3.5-5.0 [facility] Comment on above: Performed By: #### C HM7 #### U [facility] (DEFAULT) [address] [place] [address]335 Sodium [Moles/Vol] 138 mmol/L Normal 135-145 [facility] Comment on above: Performed By: #### C HM7 #### U [facility] (DEFAULT) [address] [place] [address] 20509 Urea nitrogen [Mass/Vol] 21 mg/dL Normal 7-25 [facility] Comment on above: Performed By: #### C HM7 #### [facility] (DEFAULT) [address] [place] [address] Urea nitrogen/Creatinine [Mass ratio] 27 mg/mg Normal [facility] Comment on above: Performed By: #### C HM7 #### [facility] (DEFAULT) [address] [place] [address] GLUCOSE POCon 10-21-2024 Glucose [Mass/Vol] 133 mg/dL 70 - 179 mg/dL [facility] POC Sample Type CAPBL [facility] Glucose [Mass/Vol] 115 mg/dL 70 - 179 mg/dL [facility] POC Sample Type CAPBL [facility] MAGNESIUMon 10-21-2024 Magnesium [Mass/Vol] 2.2 mg/dL 1.6 - 2 .6 mg/dL [facility] Magnesium [Mass/Vol] 2.2 mg/dL Normal 1.6-2.6 [facility] Comment on above: Performed By: #### C HM7 #### [facility] (DEFAULT) [address] [place] [address] No Panel Informationon 10-21 Interpretation and review of laboratory results Normal [facility] PT,INR,PTTon 10-21-2024 aPTT Coag (PPP) [Time] 29.1 s [facility] INR Coag (Bld) [Relative time] 1 {INR} 0.9 - 1.1 [facility] Interpretation and review of laboratory results Normal [facility] PT Coag (PPP) [Time] 13.5 s [facility] aPTT Coag (Bld) [Time] 29.1 s Normal 24.0-34.3 [facility] Comment on above: Performed By: #### U R #### [facility] (DEFAULT) [address] [place] [address] INR Coag (PPP) [Relative time] 1.0 {INR} Normal 0.9-1.1 [facility] Comment on above: Performed By: #### U R #### [facility] (DEFAULT) [address] [place] [address] PT Coag (PPP) [Time] 13.5 s Normal 11.9-14.2 [facility] Comment on above: Performed By: #### U R #### [facility] (DEFAULT) [address] [place] [address] CALCIUMon 10-20-2024 Calcium [Mass/Vol] 9.3 mg/dL 8.6 - 10. 5 mg/dL [facility] Calcium [Mass/Vol] 9.3 mg/dL Normal 8.6-10.5 [facility] Comment on above: Performed By: #### C A, CHM7, MGO ####[facility] (DEFAULT)[address] [place] [address] CBC AND ELECTRONIC DIFFon Basophils (Bld) [#/Vol] 0.15 10*3/uL 0.00 - 0.15 K/uL [facility] Basophils/100 WBC (Bld) 1.2 % [facility] Differential cell count method Nom (Bld) Electronic Differential [facility] Eosinophils (Bld) [#/Vol] 1.03 10*3/uL High 0.00 - 0.42 K/uL [facility] Eosinophils/100 WBC (Bld) 8.6 % [facility] Erythrocyte distribution width (RBC) [Ratio] 12.7 % 10.8 - 14.9 % [facility] Hematocrit (Bld) [Volume fraction] 41.7 % 34.9 - 44.3 % [facility] Hemoglobin (Bld) [Mass/Vol] 13.3 g/dL 11.4 - 15.2 g/dL [facility] Immature granulocytes (Bld) [#/Vol] 0.05 10*3/uL NINF - 0.08 K/uL [facility] Immature granulocytes/100 WBC (Bld) 0.4 % [facility] Interpretation and review of laboratory results Abnormal [facility] Lymphocytes (Bld) [#/Vol] 1.19 10*3/uL 1.16 - 3.51 K/uL [facility] Lymphocytes/100 WBC (Bld) 9.9 % [facility] MCH (RBC) [Entitic mass] 30.8 pg 25.9 - 33.9 pg [facility] MCHC (RBC) [Mass/Vol] 31.9 g/dL 31.4 - 35.9 g/dL [facility] MCV (RBC) [Entitic vol] 96.5 fL 79.6 - 97.7 fL [facility] Monocytes (Bld) [#/Vol] 0.75 10*3/uL 0.22 - 0.87 K/uL [facility] Monocytes/100 WBC (Bld) 6.2 % [facility] Neutrophils (Bld) [#/Vol] 8.84 10*3/uL High 1.64 - 7.28 K/uL [facility] Nucleated RBC/100 WBC (Bld) [Ratio] 0 % [facility] Platelet mean volume (Bld) [Entitic vol] 8.7 fL 8.5 - 12.2 fL [facility] Platelets (Bld) [#/Vol] 319 10*3/uL 150 - 393 K/uL [facility] RBC (Bld) [#/Vol] 4.32 10*6/uL [facility] Segmented neutrophils/100 WBC (Bld) 73.7 % [facility] WBC (Bld) [#/Vol] 12.01 10*3/uL High 3.99 - 11.19 K/uL [facility] Basophils (Bld) [#/Vol] 0.15 10*3/uL Normal 0.00-0.15 [facility] Comment on above: Performed By: #### L [id number] ####[facility] (DEFAULT)[address] [place] [address] Basophils/100 WBC (Bld) 1.2 % Normal [facility] Comment on above: Performed By: #### L [id number] ####[facility] (DEFAULT)[address] [place] [address] DIFF STATUS Electronic Differential Normal [facility] Comment on above: Performed By: #### L [id number] ####U [facility] (DEFAULT)[address] [facility] [place] [facility] [place] [address] Eosinophils (Bld) [#/Vol] 1.03 10*3/uL High 0.00-0.42 [facility] Comment on above: Performed By: #### L [id number] ####[facility] (DEFAULT)[address] [facility] [place] [address] Eosinophils/100 WBC (Bld) 8.6 % Normal [facility] Comment on above: Performed By: #### L [id number] ####[facility] (DEFAULT)[address] [facility] [place] [address] Hematocrit (Bld) [Volume fraction] 41.7 % Normal 34.9-44.3 [facility] Comment on above: Performed By: #### L [id number] ####[facility] (DEFAULT)[address] [facility] [place] [address] Hemoglobin (Bld) [Mass/Vol] 13.3 g/dL Normal 11.4-15.2 [facility] Comment on above: Performed By: #### L [id number] ####[facility] (DEFAULT)[address] [facility] [place] [address] Immature Grans % 0.4 % Normal [facility] Comment on above: Performed By: #### L [id number] ####[facility] (DEFAULT)[address] [facility] [place] [address] Immature Grans Absolute 0.05 K/uL Normal <=0.08 [facility] Comment on above: Performed By: #### L [id number] ####[facility] (DEFAULT)[address] [facility] [place] [address] Lymphocytes (Bld) [#/Vol] 1.19 10*3/uL Normal 1.16-3.51 [facility] Comment on above: Performed By: #### L [id number] ####[facility] (DEFAULT)[address] [facility] [place] [address] Lymphocytes/100 WBC (Bld) 9.9 % Normal [facility] Comment on above: Performed By: #### L [id number] ####[facility] (DEFAULT)[address] [facility] [place] [address] MCV (RBC) [Entitic vol] 96.5 fL Normal 79.6-97.7 [facility] Comment on above: Performed By: #### L [id number] ####[facility] (DEFAULT)[address] [facility] [place] [address] Mean Cell Hgb 30.8 pg Normal 25.9-33.9 [facility] Comment on above: Performed By: #### L [id number] ####[facility] (DEFAULT)[address] [facility] [place] [address] Mean Cell Hgb Conc 31.9 g/dL Normal 31.4-35.9 [facility] Comment on above: Performed By: #### L [id number] ####[facility] (DEFAULT)[address] [facility] [place] [address] Monocytes (Bld) [#/Vol] 0.75 10*3/uL Normal 0.22-0.87 [facility] Comment on above: Performed By: #### L [id number] ####[facility] (DEFAULT)[address] [facility] [place] [address] Monocytes/100 WBC (Bld) 6.2 % Normal [facility] Comment on above: Performed By: #### L [id number] ####[facility] (DEFAULT)[address] [facility] [place] [address] Nucleated RBC 0.0 /100 WBC Normal <=0.2 [facility] Comment on above: Performed By: #### L [id number] ####[facility] (DEFAULT)[address] [facility] [place] [address] Platelet mean volume (Bld) [Entitic vol] 8.7 fL Normal 8.5-12.2 [facility] Comment on above: Performed By: #### L [id number] ####[facility] (DEFAULT)[address] [facility] [place] [address] Platelets (Bld) [#/Vol] 319 10*3/uL Normal 150-393 [facility] Comment on above: Performed By: #### L [id number] ####[facility] (DEFAULT)[address] [facility] [place] [address] RBC (Bld) [#/Vol] 4.32 10*6/uL Normal 3.91-5.04 [facility] Comment on above: Performed By: #### L [id number] ####[facility] (DEFAULT)[address] [facility] [place] [address] RBC Distribution 12.7 % Normal 10.8-14.9 [facility] Comment on above: Performed By: #### L [id number] ####[facility] (DEFAULT)[address] [facility] [place] [address] Segs + Bands Auto 73.7 % Normal [facility] Comment on above: Performed By: #### L [id number] ####[facility] (DEFAULT)[address] [facility] [place] [address] Segs + Bands,Absolute Auto 8.84 K/uL High 1.64-7.28 [facility] Comment on above: Performed By: #### L [id number] ####[facility] (DEFAULT)[address] [place] [address] WBC (Bld) [#/Vol] 12.01 10*3/uL High 3.99-11.19 [facility] Comment on above: Performed By: #### L [id number] ####[facility] (DEFAULT)[address] [place] [address] CHEM 7 (LYTES,BUN,CREA,GLUC) on 10-20-2024 Anion gap [Moles/Vol] 15 mmol/L 7 - 17 mmol/L [facility] Chloride [Moles/Vol] 104 mmol/L 98 - 10 8 [facility] CO2 [Moles/Vol] 24 mmol/L 21 - 31 mmol/L [facility] Creatinine [Mass/Vol] 0.75 mg/dL 0.50 - 1.20 mg/dL [facility] eGFR, CKD-EPI, Female 77 - PINF [facility] Glucose [Mass/Vol] 132 mg/dL 70 - 179 mg/dL [facility] Osmolality Calc [Osmolality] 293 [facility] Potassium [Moles/Vol] 4.1 mmol/L 3.5 - 5.0 mmol/L [facility] Sodium [Moles/Vol] 139 mmol/L 135 - 145 mmol/L [facility] Urea nitrogen [Mass/Vol] 12 mg/dL 7 - 25 mg/dL [facility] Urea nitrogen/Creatinine [Mass ratio] 16 mg/mg [facility] Anion gap [Moles/Vol] 15 mmol/L Normal 7-17 [facility] Comment on above: Performed By: #### C A, CHM7, MGO ####U [facility] (DEFAULT)[address] [place] [address] Chloride [Moles/Vol] 104 mmol/L Normal 98-108 [facility] Comment on above: Performed By: #### C A, CHM7, MGO ####[facility] (DEFAULT)[address] [place] [address] CO2 [Moles/Vol] 24 mmol/L Normal 21-31 [facility] Comment on above: Performed By: #### FLO Rogers, MGO ####U [facility] (DEFAULT)[address] [facility] [place] [address] Creatinine [Mass/Vol] 0.75 mg/dL Normal 0.50-1.20 [facility] Comment on above: Performed By: #### FLO Rogers, MGO ####U [facility] (DEFAULT)[address] [facility] [place] [address] GFR/1.73 sq M.predicted among non-blacks MDRD (S/P/Bld) [Vol rate/Area] 77 mL/min/{1.73_m2} Normal >=60 [facility] Comment on above: Result Comment: Repo rted eGFR is based on the CKD-EPI 2020 equation using creatinine, age, and sex. Performed By: #### FLO Rogers, MGO ####[facility] (DEFAULT)[address] [facility] [place] [address] Glucose [Mass/Vol] 132 mg/dL Normal Nonfastin g : 70-179 mg/dL; Fastin-99 [facility] Comment on above: Performed By: #### FLO Rogers, MGO ####[facility] (DEFAULT)[address] [place] [address], [place] [address] Osmolality [Osmolality] 293 mosm/kg Normal 278-305 [facility] Comment on above: Performed By: #### FLO Rogers, MGO ####U [facility] (DEFAULT)[address] [facility] [place] [address] Potassium [Moles/Vol] 4.1 mmol/L Normal 3.5-5.0 [facility] Comment on above: Performed By: #### TY Rogers7, MGO ####[facility] (DEFAULT)[address] [facility] [place] [address] Sodium [Moles/Vol] 139 mmol/L Normal 135-145 [facility] Comment on above: Performed By: #### C TY Todd7, MGO ####[facility] (DEFAULT)[address] [facility] [place] [address] Urea nitrogen [Mass/Vol] 12 mg/dL Normal - [facility] Comment on above: Performed By: #### Taylor Todd, TY7, MGO ####[facility] (DEFAULT)[address] [facility] [place] [address] Urea nitrogen/Creatinine [Mass ratio] 16 mg/mg Normal [facility] Comment on above: Performed By: #### TY Rogers7, MGO ####[facility] (DEFAULT)[address] [place] [address] [facility] CNPN Telephone (HCSIND) BHARTIBEHZAD ([id number]) 1940 F Date Time Provider Department 10/20/24 MACK BRITO During your visit today, we recorded the following information about you: Mack Brito RN 10/20/2024 9:49 AM Signed [facility] [place]. Your home health patient was admitted to [facility] for CVA as of 10/18/24. All home health services have been placed on HOLD. Thank you. Mack Brito RN [facility] Allergies As of Date: 10/20/2024 Noted Allergy Reaction ADHESIVE TAPE (ROSINS) 08/27/2011 2 - Rash BACTRIM (SULFAMETHOXAZOLE-TRIMETH*0 09/25/2018 2 - Rash MACROBID (NITROFURANTOIN MONOHYD/*09/25/2018 2 - Rash NNRVZPN-WKF-MGE REDUCTASE INHIBIT*10/06/2014 5 - Intolerance Comments: severe [...] osteoarthritis of right hip [M16.11] 02/27/2017 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 (HCC) [PRY0456] 07/28/2017 07/06/2018 Collagenous colitis [K52.831] 12/21/2018 IBS (irritable bowel syndrome) [K58.9] 12/21/2018 Hiatal hernia [K44.9] 09/11/2020 Fall from standing [W19.XXXA] 06/05/2021 Rotator cuff tear arthropathy, left [M75.102, M*10/29/2021 Paroxysmal atrial fibrillation (HCC) [I48.0] 04/11/2022 Primary hypertension [I10] 12/30/2022 Acute pain of right shoulder [M25.511] 04/16/2023 Severe pain of left shoulder [M25.512] 04/16/2023 Cervicalgia [M54.2] 04/16/2023 Encounter Status:Closed by MACK BRITO on 10/20/24 Normal [facility] GLUCOSE POCon 10-20-2024 Glucose [Mass/Vol] 121 mg/dL 70 - 179 mg/dL [facility] Glucose [Mass/Vol] 107 mg/dL 70 - 179 mg/dL [facility] POC [facility] Glucose [Mass/Vol] 133 mg/dL 70 - 179 mg/dL [facility] POC Sample Type CAPBL [facility] Glucose [Mass/Vol] 124 mg/dL 70 - 179 mg/dL [facility] POC Sample Type CAPBL [facility] MAGNESIUMon 10-20-2024 Magnesium [Mass/Vol] 2.5 mg/dL 1.6 - 2 .6 mg/dL [facility] Magnesium [Mass/Vol] 2.5 mg/dL Normal 1.6-2.6 [facility] Comment on above: Performed By: #### C A, CHM7, MGO ####[facility] (DEFAULT)[address] [address] No Panel Informationon 10-20 Interpretation and review of laboratory results Normal [facility] PT,INR,PTTon 10-20-2024 aPTT Coag (PPP) [Time] 28.1 s [facility] INR Coag (Bld) [Relative time] 1.1 {INR} 0.9 - 1.1 [facility] Interpretation and review of laboratory results Abnormal [facility] PT Coag (PPP) [Time] 14.5 s High [facility] aPTT Coag (Bld) [Time] 28.1 s Normal 24.0-34.3 [facility] Comment on above: Performed By: #### U R #### [facility] (DEFAULT) [address] [place] [address] INR Coag (PPP) [Relative time] 1.1 {INR} Normal 0.9-1.1 [facility] Comment on above: Performed By: #### U R #### [facility] (DEFAULT) [address] [place] [address] PT Coag (PPP) [Time] 14.5 s High 11.9-14.2 [facility] Comment on above: Performed By: #### U R #### [facility] (DEFAULT) [address] [place] [address] CALCIUMon 10-19-2024 Calcium [Mass/Vol] 9.0 mg/dL Normal 8.6-10.5 [facility] Comment on above: Performed By: #### T YPEC #### [facility] (DEFAULT) [address] [place] [address] CBC AND ELECTRONIC DIFFon Erythrocyte distribution width (RBC) [Ratio] 12.8 % 10.8 - 14.9 % [facility] Hematocrit (Bld) [Volume fraction] 37.6 % 34.9 - 44.3 % [facility] Hemoglobin (Bld) [Mass/Vol] 12.1 g/dL 11.4 - 15.2 g/dL [facility] Interpretation and review of laboratory results Normal [facility] MCH (RBC) [Entitic mass] 30.9 pg 25.9 - 33.9 pg [facility] MCHC (RBC) [Mass/Vol] 32.2 g/dL 31.4 - 35.9 g/dL [facility] MCV (RBC) [Entitic vol] 96.2 fL 79.6 - 97.7 fL [facility] Platelet mean volume (Bld) [Entitic vol] 8.7 fL 8.5 - 12.2 fL [facility] Platelets (Bld) [#/Vol] 285 10*3/uL 150 - 393 K/uL [facility] RBC (Bld) [#/Vol] 3.91 10*6/uL [facility] WBC (Bld) [#/Vol] 10.12 10*3/uL 3.99 - 11.19 K/uL [facility] Hematocrit (Bld) [Volume fraction] 37.6 % Normal 34.9-44.3 [facility] Comment on above: Performed By: #### L [id number] #### [facility] (DEFAULT) [address] [place] [address] Hemoglobin (Bld) [Mass/Vol] 12.1 g/dL Normal 11.4-15.2 [facility] Comment on above: Performed By: #### L [id number] #### [facility] (DEFAULT) [address] [place] [address] MCV (RBC) [Entitic vol] 96.2 fL Normal 79.6-97.7 [facility] Comment on above: Performed By: #### L AB980 #### [facility] (DEFAULT) [address] [address] Mean Cell Hgb 30.9 pg Normal 25.9-33.9 [facility] Comment on above: Performed By: #### L AB980 #### [facility] (DEFAULT) [address] [address] Mean Cell Hgb Conc 32.2 g/dL Normal 31.4-35.9 [facility] Comment on above: Performed By: #### L [id number] #### [facility] (DEFAULT) [address] [address] Platelet mean volume (Bld) [Entitic vol] 8.7 fL Normal 8.5-12.2 [facility] Comment on above: Performed By: #### L [id number] #### [facility] (DEFAULT) [address] [address] Platelets (Bld) [#/Vol] 285 10*3/uL Normal 150-393 [facility] Comment on above: Performed By: #### L [id number] #### [facility] (DEFAULT) [address] [address] RBC (Bld) [#/Vol] 3.91 10*6/uL Normal 3.91-5.04 [facility] Comment on above: Performed By: #### L [id number] #### [facility] (DEFAULT) [address] [address] RBC Distribution 12.8 % Normal 10.8-14.9 [facility] Comment on above: Performed By: #### L [id number] #### [facility] (DEFAULT) [address] [address] WBC (Bld) [#/Vol] 10.12 10*3/uL Normal 3.99-11.19 [facility] Comment on above: Performed By: #### L AB980 #### U [facility] (DEFAULT) [address] [place] [address] CHEM 7 (LYTES,BUN,CREA,GLUC) on 10-19-2024 Anion gap [Moles/Vol] 14 mmol/L Normal 7-17 [facility] Comment on above: Performed By: #### T YPEC #### U [facility] (DEFAULT) [address] [place] [address] Chloride [Moles/Vol] 104 mmol/L Normal 98-108 [facility] Comment on above: Performed By: #### T YPEC #### [facility] (DEFAULT) [address] [place] [address] CO2 [Moles/Vol] 26 mmol/L Normal 21-31 [facility] Comment on above: Performed By: #### T YPEC #### [facility] (DEFAULT) [address] [place] [address] Creatinine [Mass/Vol] 0.73 mg/dL Normal 0.50-1.20 [facility] Comment on above: Performed By: #### T YPEC #### [facility] (DEFAULT) [address] [place] [address] GFR/1.73 sq M.predicted among non-blacks MDRD (S/P/Bld) [Vol rate/Area] 80 mL/min/{1.73_m2} Normal >=60 [facility] Comment on above: Result Comment: Repo rted eGFR is based on the CKD-EPI 2020 equation using creatinine, age, and sex. Performed By: #### T YPEC #### U [facility] (DEFAULT) [address] [place] [address] Glucose [Mass/Vol] 145 mg/dL Normal Nonfastin g : 70-179 mg/dL; Fastin-99 [facility] Comment on above: Performed By: #### T YPEC #### U [facility] (DEFAULT) [address] [place] [address] Osmolality [Osmolality] 295 mosm/kg Normal 278-305 [facility] Comment on above: Performed By: #### T YPEC #### [facility] (DEFAULT) [address] [place] [address] Potassium [Moles/Vol] 3.7 mmol/L Normal 3.5-5.0 [facility] Comment on above: Performed By: #### T YPEC #### U [facility] (DEFAULT) [address] [place] [address] Sodium [Moles/Vol] 140 mmol/L Normal 135-145 [facility] Comment on above: Performed By: #### T YPEC #### U [facility] (DEFAULT) [address] [place] [address] Urea nitrogen [Mass/Vol] 12 mg/dL Normal 7-25 [facility] Comment on above: Performed By: #### T YPEC #### U [facility] (DEFAULT) [address] [place] [address] Urea nitrogen/Creatinine [Mass ratio] 16 mg/mg Normal [facility] Comment on above: Performed By: #### T YPEC #### U [facility] (DEFAULT) [address] [place] [address] HEAD WITHOUT CONTRASTon 0 10-19-2024 CT [...] increased edema. No significant mass effect Normal [facility] CT Head WO contraston 2024 RADIOLOGY RADIOLOGY [facility] Radiology Study observation (narrative) [facility] Cardiac echo study Procedure Ordered By: Alfredito Rodriguez on 10-19-2024 Ao ASC [facility] 2.22 cm[facility]: Ao peak jeri 1.77 m/s [facility] Work Phone: Ao SOV index 2.12 cm/m2 [facility] Work Phone: Ao STJ index 1.59 cm/m2 [facility] Work Phone: [phone] Ao VTI 39.74 cm [facility] Work Phone: Ascending aorta 3.39 [facility] Work [facility]: AV LVOT peak gradient 6 [facility]: AV mean gradient 7 [facility]: [facility] peak gradient 13 mmHG [facility] Work Phone: [phone] AV valve area 2.16 cm2 [facility] Work Phone: AV Velocity Ratio 0.68 [facility]: CORONA (continuity Vmax) 2.04 cm2 [facility] Work Phone: [phone] CORONA (continuity VTI) 2.16 cm2 [facility] Work Phone: [phone] CORONA index (continuity Vmax) 1.33 m/s [facility] Work Phone: [phone] CORONA index (continuity VTI) 1.41 cm2/m2 [facility] Work Phone: [phone] Avg e' pk jeri 0.11 m/s [facility] Work Phone: [phone] Avg E/e' ratio 7.89 [facility] Work Phone: [phone] Body surface area Derived from formula 1.53 m2 [facility] Work Phone: [phone] BP EF 61 % [facility]: [phone] DI (Vmax) 0.68 [facility] Work Phone: [phone] DI (VTI) 0.72 m/2 [facility] [phone] E wave decelartion time 194.4 msec [facility] Work Phone: [phone] e' lateral pk jeri 0.1015 m/s [facility] Work Phone: [phone] e' lateral pk jeri 0.1 m/s [facility] Work Phone: [phone] e' septal pk jeri 0.1238 m/s [facility]: [phone] e' septal pk jeri 0.12 m/s [facility]: [phone] E[facility] 1.31 [facility]: [phone] [facility]' [facility] [phone] E/e' septal ratio 7.11 [facility] Work Phone: [phone] EF SP 2CH 65 [facility] Work Phone: [phone] EF SP 4CH 59 [facility] Work Phone: [phone] EST RAP 5 mmHg [facility]: [phone] EST RVSP 28 mmHg [facility] Work Phone: [phone] FS 36 % [facility]: [phone] IVC ostium 1.12 cm [facility] Phone: [phone] IVS 0.6 cm [facility] Work Phone: [phone] LA ESV BP (MOD) 72 [facility] Phone: [phone] LA ESV BP (MOD) index 47 mL/m2 [facility] Phone: [phone] LA ESV SP 2CH (MOD) 84 mL [facility] Work Phone: [phone] LA ESV SP 4CH (MOD) 60 mL [facility] Work Phone: [phone] LV EDV BP 96 mL [facility]: [phone] LV EDV SP 2CH 88 [facility] Work Phone: [phone] LV EDV SP 4CH 97 mL [facility] Phone: [phone] LV ESV BP 37 mL [facility] Phone: [phone] LV ESV SP 2CH 31 [facility] Phone: [phone] LV ESV SP 4CH 40 [facility] Phone: [phone] LV mass 108.07 g [facility] Work Phone: [phone] LV Mass Index 70.6 g/m2 [facility] Work Phone: [phone] LV RWT 0.23 [facility] Work Phone: [phone] LV stroke volume BP (ml) 59 mL [facility] Work Phone: [phone] LV stroke volume index BP 38.56 mL/m2 [facility] Work Phone: [phone] LVIDD 5.35 cm [facility] Work Phone: [phone] LVIDS 3.43 cm [facility] Work Phone: [phone] LVOT area 2.98 cm2 [facility] Work Phone: [phone] LVOT diameter 1.95 cm [facility] Work Phone: [phone] LVOT peak jeri 1.21 m/s [facility] Work Phone: [phone] LVOT peak VTI 28.7 cm [facility] Work Phone: [phone] LVOT stroke volume 86 cm3 [facility] Work Phone: LVOT stroke volume index 55.99 ml/m2 [facility] Work Phone: [phone] MV pk A jeri 0.67 m/s [facility] Work Phone: [phone] MV pk E jeri 0.88 m/s [facility] Work Phone: [phone] [facility] AV VTI RATIO PRE STRESS 0.72 [facility] Work Phone: [facility]SU ECHO LV BIPLANE SYSTOLIC VOLUME INDEX 24.18 mL/m2 [facility] Work Phone: [facility] ECHO LV BP DIASTOLIC VOLUME INDEX 62.75 mL/m2 [facility] Work Phone: [phone] PV peak gradient 2 mmHg [facility] Work Phone: [phone] PV PK JERI 0.71 m/s [facility] Work Phone: [phone] PW 0.61 cm [facility] Work Phone: [phone] RA vol index 4CH (MOD) 46.41 mL/m2 [facility] Work Phone: [phone] Right atrium volume 4 chamber method of disks 71 mL [facility] Work Phone: [phone] RV Area diastolic 15.71 cm2 [facility] Work Phone: [phone] RV Area systolic 7.9 cm2 [facility] Work Phone: RV basal diam 3.64 cm [facility] Work Phone: [phone] RV Fractional area change 49.7 % [facility] Work [facility]: RV long diam 5.75 cm [facility] Work Phone: [phone] RV mid diam 2.87 cm [facility] Work Phone: RV S' 15.17 cm/s [facility] Work Phone: Sinus 3.24 cm [facility] Work Phone: [phone] STJ 2.44 cm [facility] Work Phone: [phone] Stroke Volume 86 cm/mL [facility] Work Phone: Stroke volume index 56 [facility] Work Phone: TAPSE 2.16 cm [facility] Work [facility]: TR pk grad 23 mmHg [facility] Work Phone: [phone] TR pk jeri 2.4 m/s [facility] Work Phone: TV rest pulmonary artery pressure 26.09 mmHg [facility] Work Phone: [facility] Work Phone: Cardiac [facility] study [facility] Study observation (narrative) [facility] ECHOCARDIOGRAMon 10-19-2024 Echocardiography Left ventricular siz e, [...] from the original result were not included. [facility] Facility [facility] Patient Information Patient Name Behzad Hay [...] Role Read Date Alfredito Rodriguez DO Echo [place] 10/19/2024 Left Heart Measurements LV - Systole [...] mmHg PI (more content not included)... Normal [facility] GLUCOSE POCon 10-19-2024 Glucose [Mass/Vol] 112 mg/dL 70 - 179 mg/dL [facility] Glucose [Mass/Vol] 106 mg/dL 70 - 179 mg/dL [facility] Glucose [Mass/Vol] 124 mg/dL 70 - 179 mg/dL [facility] POC Sample Type [facility]BL [facility] Glucose [Mass/Vol] 131 mg/dL 70 - 179 mg/dL [facility] POC Sample Type CAPBL [facility] HEPATIC FUNCTION PANELon Albumin [Mass/Vol] 3.9 g/dL 3.5 - 5.0 g/dL [facility] ALT [Catalytic activity/Vol] 79 U/L High 9 - 48 U/L [facility] Albumin [Mass/Vol] 3.9 g/dL Normal 3.5-5.0 [facility] Comment on above: Performed By: #### T YPEC #### [facility] (DEFAULT) [address] [place] [address] ALP [Catalytic activity/Vol] 171 U/L High 32-126 [facility] Comment on above: Performed By: #### T YPEC #### [facility] (DEFAULT) [address] [place] [address] ALT [Catalytic activity/Vol] 79 U/L High 9-48 [facility] Comment on above: Performed By: #### T YPEC #### [facility] (DEFAULT) [address] [place] [address] AST [Catalytic activity/Vol] 48 U/L High 10-39 [facility] Comment on above: Performed By: #### T YPEC #### [facility] (DEFAULT) [address] [place] [address] Bilirubin [Mass/Vol] 0.4 mg/dL Normal <1.5 [facility] Comment on above: Performed By: #### T YPEC #### [facility] (DEFAULT) [address] [address] Bilirubin Direct < Normal <0.3 [facility] Comment on above: Performed By: #### T YPEC #### [facility] (DEFAULT) [address] [address] Protein [Mass/Vol] 6.7 g/dL Normal 6.4-8.3 [facility] Comment on above: Performed By: #### T YPEC #### [facility] (DEFAULT) [address] [address] IONIZED CALCIUM, SERUMOrdere d By: Mook Albrecht on 10-19-2024 Calcium.ionized (Bld) [Moles/Vol] 4.91 mg/dL 4.60 - 5.30 mg/dL [facility] Interpretation and review of laboratory results Normal [facility] IONIZED CALCIUM, SERUMon ICA 4.91 mg/dL Normal 4.60-5.30 [facility] Comment on above: Performed By: #### U [id number] #### [facility] (DEFAULT) [address] [address] MAGNESIUMon 10-19-2024 Magnesium [Mass/Vol] 1.9 mg/dL Normal 1.6-2.6 [facility] Comment on above: Performed By: #### T YPEC #### [facility] (DEFAULT) [address] [place] [address] MANUAL DIFFon 10-19-2024 Band form neutrophils/100 WBC (Bld) 0 % [facility] Basophils (Bld) [#/Vol] 0 10*3/uL 0.00 - 0.15 K/uL [facility] Basophils/100 WBC (Bld) 0 % [facility] Differential cell count method Nom (Bld) Manual Differential [facility] Eosinophils (Bld) [#/Vol] 2.36 10*3/uL High [facility] Eosinophils/100 WBC (Bld) 23.3 % [facility] Interpretation and review of laboratory results Abnormal [facility] Lymphocytes (Bld) [#/Vol] 1.31 10*3/uL 1.16 - 3.51 K/uL [facility] Lymphocytes/100 WBC (Bld) 12.9 % [facility] Monocytes (Bld) [#/Vol] 0.44 10*3/uL 0.22 - 0.87 K/uL [facility] Monocytes/100 WBC (Bld) 4.3 % [facility] Neutrophils (Bld) [#/Vol] 6.02 10*3/uL 1.64 - 7.28 K/uL [facility] Platelets Estimate (Bld) [#/Vol] Automated platelet count confirmed by manual slide review [facility] RBC morphology finding Nom (Bld) RBC INDICES CONFIRMED WITH MANUAL SLIDE REVIEW [facility] Segmented neutrophils/100 WBC (Bld) 59.5 % [facility] MR Brain WO and W contrast I Von 10-19-2024 RADIOLOGY RADIOLOGY [facility] Radiology Study observation (narrative) [facility] MR Brain WO and W contrast I VOrdered By: Chano Moe on 10-19-2024 [facility] Work Phone: MRI BRAIN STROKE WITH AND [...] have reviewed and approved this report. Normal [facility] No Panel Informationon 10-19 POC Sample Type [facility]BL [facility] PHOSPHATE, INORGANICon 10-19 Phosphorous 2.9 mg/dL Normal 2.2-4.6 [facility] Comment on above: Performed By: #### T YPEC #### [facility] (DEFAULT) [address] [place] [address] PLATELET COUNTon 10-19-2024 Interpretation and review of laboratory results Normal [facility] Platelet mean volume (Bld) [Entitic vol] 9 fL 8.5 - 12.2 fL [facility] Platelets (Bld) [#/Vol] 300 10*3/uL 150 - 393 K/uL [facility] Platelet mean volume (Bld) [Entitic vol] 9.0 fL Normal 8.5-12.2 [facility] Comment on above: Performed By: #### C HM7 #### [facility] (DEFAULT) [address] [place] [address] Platelets (Bld) [#/Vol] 300 10*3/uL Normal 150-393 [facility] Comment on above: Performed By: #### C HM7 #### [facility] (DEFAULT) [address] [place] [address] PT,INR,PTTon 10-19-2024 aPTT Coag (PPP) [Time] 28.4 s [facility] INR Coag (Bld) [Relative time] 1 {INR} 0.9 - 1.1 [facility] Interpretation and review of laboratory results Normal [facility] PT Coag (PPP) [Time] 13.2 s [facility] aPTT Coag (Bld) [Time] 28.4 s Normal 24.0-34.3 [facility] Comment on above: Performed By: #### U [id number] #### [facility] (DEFAULT) [address] [place] [address] INR Coag (PPP) [Relative time] 1.0 {INR} Normal 0.9-1.1 [facility] Comment on above: Performed By: #### U [id number] #### [facility] (DEFAULT) [address] [address] PT Coag (PPP) [Time] 13.2 s Normal 11.9-14.2 [facility] Comment on above: Performed By: #### U [id number] #### [facility] (DEFAULT) [address] [address] SCREEN: MRSA/MSSAOrdered By: Rober Mix on 10-19-2024 Interpretation and review of laboratory results Normal [facility] Methicillin Resistant S. Aureus By Pcr Negative Negative [facility] Staphylococcus Aureus By Pcr Negative Negative [facility] SCREEN: MRSA/MSSAon 10-20-19 Methicillin Resistant S. Aureus By Pcr Negative Normal Negative [facility] Comment on above: Order Comment: Colle [...] by the Clinical Microbiology Laboratory at [facility]. It has not been cleared or approved by the FDA.The laboratory is regulated under CLIA as qualified to perform high-complexity testing. This test is used for clinical purposes. It should not be regarded as investigational or for research. Performed By: #### T YPEC #### [facility] (DEFAULT) [address] [address] Staphylococcus Aureus By Pcr Negative Normal Negative [facility] Comment on above: Order Comment: Colle [...] by the Clinical Microbiology Laboratory at [facility]. It has not been cleared or approved by the FDA.The laboratory is regulated under CLIA as qualified to perform high-complexity testing. This test is used for clinical purposes. It should not be regarded as investigational or for research. Performed By: #### T YPEC #### [facility] (DEFAULT) [address] [address] 12 Lead EKGon 10-18-2024 12 Lead EKG Normal [facility] ABORH TYPE RECONFIRMATIONon 10-18-2024 ABO/RH(D) TYPE Positive Normal [facility] Comment on above: Performed By: #### T YPEC #### [facility] (DEFAULT) [address] [address] Absolute lymphocyte countOrd ered By: Mihai Woods on 10-18-2024 Lymphocytes Auto (Unsp spec) [#/Vol] 1.10 10*3/uL 0.83-4.51 [facility] Absolute neutrophil countOrd ered By: Mihai Woods on 10-18-2024 Neutrophils (Bld) [#/Vol] 4.6 10*3/uL 2.0-7.7 [facility] Activated partial thrombopla stin time (aPTT) in platelet poor plasma by coagulation aOrdered By: Mihai Woods on 10-18-2024 aPTT Coag (PPP) [Time] 29.2 s 24.1-36.2 [facility] Anion gap in Serum or Plasma Ordered By: Mihai Woods on 10-18-2024 Anion gap [Moles/Vol] 10 mmol/L 5-15 [facility] Automated lymphocyte count a s percentage of total leukocytesOrdered By: Mihai Woods on 10-18-2024 Lymphocytes/100 WBC Auto (Unsp spec) 13.6 % Low 19-41 [facility] BUN/creatinine ratioOrdered By: Mihai Woods on 10-18-2024 Urea nitrogen/Creatinine [Mass ratio] 17.9 mg/mg 10-20 [facility] Basic Metabolic Profile (BMP )on 10-18-2024 BUN/CRE 17.9 RATIO Normal 10-20 [facility] Comment on above: Performed By: #### L 500.2500, L300.3900, L300.4310, L501.4021, L100.0100 ####[facility] [address] [place], [address] Calcium [Mass/Vol] 9.6 mg/dL Normal 7.6-11.0 [facility] Comment on above: Performed By: #### L 500.2500, L300.3900, L300.4310, L501.4021, L100.0100 ####[facility] [address] [place], [address] Chloride [Moles/Vol] 102 mmol/L Normal 98-108 [facility] Comment on above: Performed By: #### L 500.2500, L300.3900, L300.4310, L501.4021, L100.0100 ####[facility] [address] [place], [address] CO2 [Moles/Vol] 26.6 mmol/L Normal 21.0-32.0 [facility] Comment on above: Performed By: #### L 500.2500, L300.3900, L300.4310, L501.4021, L100.0100 ####[facility] [address] [place], [address] Creatinine [Mass/Vol] 0.95 mg/dL Normal 0.70-1.20 [facility] Comment on above: Performed By: #### L 500.2500, L300.3900, L300.4310, L501.4021, L100.0100 ####[facility] [address] [place], [address] ECRCL 33.62 ml/min Low 50-250 [facility] Comment on above: Performed By: #### L 500.2500, L300.3900, L300.4310, L501.4021, L100.0100 ####[facility] [address] [place], [address] GAP 10 Normal 5-15 [facility] Comment on above: Performed By: #### L 500.2500, L300.3900, L300.4310, L501.4021, L100.0100 ####[facility] [address] [place], [address] GFR/1.73 sq M.predicted among non-blacks MDRD (S/P/Bld) [Vol rate/Area] 58 mL/min/{1.73_m2} Low >60 [facility] Comment on above: Result Comment: mL/m in/1.73m2 CKD-EPI Creatinine Equation (2020) Performed By: #### L 500.2500, L300.3900, L300.4310, L501.4021, L100.0100 ####[facility] [address] [place], [address] Glucose [Mass/Vol] 98 mg/dL Normal 70-99 [facility] Comment on above: Performed By: #### L 500.2500, L300.3900, L300.4310, L501.4021, L100.0100 ####[facility] [address] [place], [address] Potassium [Moles/Vol] 4.6 mmol/L Normal 3.3-5.1 [facility] Comment on above: Performed By: #### L 500.2500, L300.3900, L300.4310, L501.4021, L100.0100 ####[facility] [address] [place], [address] Sodium [Moles/Vol] 139 mmol/L Normal 133-145 [facility] Comment on above: Performed By: #### L 500.2500, L300.3900, L300.4310, L501.4021, L100.0100 ####[facility] [address] [place], [address] Urea nitrogen [Mass/Vol] 17 mg/dL Normal 4-19 [facility] Comment on above: Performed By: #### L 500.2500, L300.3900, L300.4310, L501.4021, L100.0100 ####[facility] [address] [place], [address] Basophil percentageOrdered B y: Mihai Woods on 10-18-2024 Basophils/100 WBC (Bld) 1.9 % High 0-1 [facility] CALCIUMon 10-18-2024 Calcium [Mass/Vol] 8.9 mg/dL Normal 8.6-10.5 [facility] Comment on above: Performed By: #### X M #### [facility] (DEFAULT) [address] [address] CBC AND ELECTRONIC DIFFon Hematocrit (Bld) [Volume fraction] 37.7 % Normal 34.9-44.3 [facility] Comment on above: Performed By: #### A 1CB, [id number] #### [facility] (DEFAULT) [address] [address] Hemoglobin (Bld) [Mass/Vol] 12.0 g/dL Normal 11.4-15.2 [facility] Comment on above: Performed By: #### A 1CB, [id number] #### [facility] (DEFAULT) [address] [address] MCV (RBC) [Entitic vol] 97.7 fL Normal 79.6-97.7 [facility] Comment on above: Performed By: #### A 1CB, [id number] #### [facility] (DEFAULT) [address] [address] Mean Cell Hgb 31.1 pg Normal 25.9-33.9 [facility] Comment on above: Performed By: #### Perez NAVARRO, [id number] #### [facility] (DEFAULT) [address] [place] [address] Mean Cell Hgb Conc 31.8 g/dL Normal 31.4-35.9 [facility] Comment on above: Performed By: #### Perez NAVARRO, [id number] #### [facility] (DEFAULT) [address] [place] [address] Platelet mean volume (Bld) [Entitic vol] 8.9 fL Normal 8.5-12.2 [facility] Comment on above: Performed By: #### Perez NAVARRO, [id number] #### [facility] (DEFAULT) [address] [place] [address] Platelets (Bld) [#/Vol] 273 10*3/uL Normal 150-393 [facility] Comment on above: Performed By: #### Perez NAVARRO, [id number] #### [facility] (DEFAULT) [address] [place] [address] RBC (Bld) [#/Vol] 3.86 10*6/uL Low 3.91-5.04 [facility] Comment on above: Performed By: #### Perez NAVARRO, [id number] #### [facility] (DEFAULT) [address] [place] [address] RBC Distribution 12.6 % Normal 10.8-14.9 [facility] Comment on above: Performed By: #### Perez 1CB, [id number] #### Eli[facility] (DEFAULT) [address] [place] [address] WBC (Bld) [#/Vol] 8.14 10*3/uL Normal 3.99-11.19 [facility] Comment on above: Performed By: #### Perez 1CB, [id number] #### [facility] (DEFAULT) [address] [place] [address] CBC W/Diff, Automatedon 07-0 7-2024 Absolute Lymph 1.10 X10 3/uL Normal 0.83-4.51 [facility] Comment on above: Performed By: #### L 500.2500, L300.3900, L300.4310, L501.4021, L100.0100 ####[facility] [address] [place], [address] Absolute Neut 4.6 X10 3/uL Normal 2.0-7.7 [facility] Comment on above: Performed By: #### L 500.2500, L300.3900, L300.4310, L501.4021, L100.0100 ####[facility] [address] [place], [address] Basophils/100 WBC (Bld) 1.9 % High 0-1 [facility] Comment on above: Performed By: #### L 500.2500, L300.3900, L300.4310, L501.4021, L100.0100 ####[facility] [address] [place], [address] Eosinophils/100 WBC (Bld) 19.1 % High 0-5 [facility] Comment on above: Performed By: #### L 500.2500, L300.3900, L300.4310, L501.4021, L100.0100 ####[facility] [address] [place], [address] Erythrocyte distribution width (RBC) [Ratio] 12.7 % Normal 11.6-14.6 [facility] Comment on above: Performed By: #### L 500.2500, L300.3900, L300.4310, L501.4021, L100.0100 ####[facility] [address] [place], [address] Hematocrit (Bld) [Volume fraction] 40.2 % Normal 37-47 [facility] Comment on above: Performed By: #### L 500.2500, L300.3900, L300.4310, L501.4021, L100.0100 ####[facility] [address] [place], [address] Hemoglobin (Bld) [Mass/Vol] 12.8 g/dL Normal 12.0-15.0 [facility] Comment on above: Performed By: #### L 500.2500, L300.3900, L300.4310, L501.4021, L100.0100 ####[facility] [address] [place], [address] IG% 0.200 Normal 0.0-0.9 [facility] Comment on above: Result Comment: IG% - Immature Granulocytes (promyelocytes, myelocytes andmetamyelocytes) > 1% indicates that a LEFT SHIFT is Present. Performed By: #### L 500.2500, L300.3900, L300.4310, L501.4021, L100.0100 ####[facility] [address] [place], [address] Lymphocytes/100 WBC (Bld) 13.6 % Low 19-41 [facility] Comment on above: Performed By: #### L 500.2500, L300.3900, L300.4310, L501.4021, L100.0100 ####[facility] [address] [place], [address] MCH (RBC) [Entitic mass] 31.1 pg Normal 27.0-32.0 [facility] Comment on above: Performed By: #### L 500.2500, L300.3900, L300.4310, L501.4021, L100.0100 ####[facility] [address] [place], [address] MCHC (RBC) [Mass/Vol] 31.8 g/dL Low 32-36 [facility] Comment on above: Performed By: #### L 500.2500, L300.3900, L300.4310, L501.4021, L100.0100 ####[facility] [address] [place], [address] MCV (RBC) [Entitic vol] 97.8 fL Normal 81-99 [facility] Comment on above: Performed By: #### L 500.2500, L300.3900, L300.4310, L501.4021, L100.0100 ####[facility] [address] [place], [address] Monocytes/100 WBC (Bld) 7.9 % Normal 0-10 [facility] Comment on above: Performed By: #### L 500.2500, L300.3900, L300.4310, L501.4021, L100.0100 ####[facility] [address] [place], [address] Neutrophils/100 WBC (Bld) 57.3 % Normal 47-70 [facility] Comment on above: Performed By: #### L 500.2500, L300.3900, L300.4310, L501.4021, L100.0100 ####[facility] [address] [place], [address] Nucleated RBC (Bld) [#/Vol] 0 10*3/uL Normal 0-5 [facility] Comment on above: Performed By: #### L 500.2500, L300.3900, L300.4310, L501.4021, L100.0100 ####[facility] [address] [place], [address] Platelet mean volume (Bld) [Entitic vol] 9.5 fL Normal 6.2-12.0 [facility] Comment on above: Performed By: #### L 500.2500, L300.3900, L300.4310, L501.4021, L100.0100 ####[facility] [address] [place], [address] Platelets (Bld) [#/Vol] 310 10*3/uL Normal 150-450 [facility] Comment on above: Performed By: #### L 500.2500, L300.3900, L300.4310, L501.4021, L100.0100 ####[facility] [address] [place], [address] RBC (Bld) [#/Vol] 4.11 10*6/uL Low 4.2-5.4 [facility] Comment on above: Performed By: #### L 500.2500, L300.3900, L300.4310, L501.4021, L100.0100 ####[facility] [address] [place], [address] RDW SD 45.4 fl High 35.1-43.9 [facility] Comment on above: Performed By: #### L 500.2500, L300.3900, L300.4310, L501.4021, L100.0100 ####[facility] [address] [place], [address] WBC (Bld) [#/Vol] 8.1 10*3/uL Normal 4.4-11.0 [facility] Comment on above: Performed By: #### L 500.2500, L300.3900, L300.4310, L501.4021, L100.0100 ####[facility] [address] [place], [address] CHM 7 - EDon 10-18-2024 Anion gap [Moles/Vol] 9 mmol/L Normal 7-17 [facility] Comment on above: Performed By: #### X M #### [facility] (DEFAULT) [address] [place] [address] Chloride [Moles/Vol] 105 mmol/L Normal 98-108 [facility] Comment on above: Performed By: #### X M #### [facility] (DEFAULT) [address] [place] [address] CO2 [Moles/Vol] 27 mmol/L Normal 21-31 [facility] Comment on above: Performed By: #### X M #### [facility] (DEFAULT) [address] [place] [address] Creatinine [Mass/Vol] 0.86 mg/dL Normal 0.50-1.20 [facility] Comment on above: Performed By: #### X M #### [facility] (DEFAULT) [address] [place] [address] 109[address] GFR/1.73 sq M.predicted among non-blacks MDRD (S/P/Bld) [Vol rate/Area] 66 mL/min/{1.73_m2} Normal >=60 [facility] Comment on above: Result Comment: Repo rted eGFR is based on the CKD-EPI 2020 equation using creatinine, age, and sex. Performed By: #### X M #### [facility] (DEFAULT) [address] [place] [address] Glucose [Mass/Vol] 114 mg/dL Normal Nonfastin g : 70-179 mg/dL; Fastin-99 [facility] Comment on above: Performed By: #### X M #### [facility] (DEFAULT) [address] [place] [address] Osmolality [Osmolality] 290 mosm/kg Normal 278-305 [facility] Comment on above: Performed By: #### X M #### [facility] (DEFAULT) [address] [place] [address] Potassium [Moles/Vol] 4.2 mmol/L Normal 3.5-5.0 [facility] Comment on above: Performed By: #### X M #### [facility] (DEFAULT) [address] [place] [address] Sodium [Moles/Vol] 137 mmol/L Normal 135-145 [facility] Comment on above: Performed By: #### X M #### [facility] (DEFAULT) [address] [place] [address] Urea nitrogen [Mass/Vol] 16 mg/dL Normal - [facility] Comment on above: Performed By: #### X M #### [facility] (DEFAULT) [address] [place] [address] Urea nitrogen/Creatinine [Mass ratio] 19 mg/mg Normal [facility] Comment on above: Performed By: #### X M #### [facility] (DEFAULT) [address] [place] [address] CT HEAD WITHOUT CONTRASTon 0 10-18-2024 CT [...] Left MCA territory infarct, 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 Normal [facility] CT STROKE HEAD-STROKE ALERT ONLYon 10-18-2024 [...] have reviewed and approved this report. Normal [facility] Carbon dioxide, total [Moles /volume] in Central venous bloodOrdered By: Mihai Woods on 10-18-2024 CO2 [Moles/Vol] 26.6 mmol/L 21.0-32.0 [facility] Chest 1 Viewon 10-18-2024 Chest 1 View Normal [facility] Chloride assayOrdered By: Timmy Woods on 10-18-2024 Chloride [Moles/Vol] 102 mmol/L 98-108 [facility] Emergency Department Summary on 10-18-2024 Emergency Department Summary Normal [facility] Eosinophil percentageOrdered By: Mihai Woods on 10-18-2024 Eosinophils/100 WBC (Bld) 19.1 % High 0-5 [facility] Erythrocyte distribution wid th ratioOrdered By: Mihai Woods on 10-18-2024 Erythrocyte distribution width (RBC) [Ratio] 12.7 % 11.6-14.6 [facility] Erythrocyte distribution wid th standard deviationOrdered By: Mihai Woods on 10-18-2024 Erythrocyte distribution width (RBC) [Ratio] 45.4 fl High 35.1-43.9 [facility] Glomerular filtration rate ( GFR) estimation/1.73 sq m using serum, plasma, or whole bOrdered By: Mihai Woods on 10-18-2024 GFR/1.73 sq M.predicted among non-blacks MDRD (S/P/Bld) [Vol rate/Area] 58 mL/min/{1.73_m2} Low >60 [facility] Comment on above: mL/min/1.73m2 CKD-EP I Creatinine Equation (2020) HEMOGLOBIN A1Con 10-18-2024 Glucose [Mass/Vol] 108 mg/dL Normal [facility] Comment on above: Performed By: #### A 1CB, [id number] #### [facility] (DEFAULT) [address] [address] Hemoglobin A1C HPLC 5.4 % Normal 4.7-5.6 [facility] Comment on above: Performed By: #### A 1CB, [id number] #### [facility] (DEFAULT) [address] [place] [address] HEPATIC FUNCTION PANELon Albumin [Mass/Vol] 3.8 g/dL Normal 3.5-5.0 [facility] Comment on above: Performed By: #### X M #### [facility] (DEFAULT) [address] [place] [address] ALP [Catalytic activity/Vol] 184 U/L High 32-126 [facility] Comment on above: Performed By: #### X M #### [facility] (DEFAULT) [address] [place] [address] ALT [Catalytic activity/Vol] 84 U/L High 9-48 [facility] Comment on above: Performed By: #### X M #### [facility] (DEFAULT) [address] [place] [address] AST [Catalytic activity/Vol] 58 U/L High 10-39 [facility] Comment on above: Performed By: #### X M #### [facility] (DEFAULT) [address] [place] [address] Bilirubin [Mass/Vol] 0.4 mg/dL Normal <1.5 [facility] Comment on above: Performed By: #### X M #### [facility] (DEFAULT) [address] [place] [address] Bilirubin.indirect [Mass/Vol] 0.1 mg/dL Normal <0.3 [facility] Comment on above: Performed By: #### X M #### [facility] (DEFAULT) [address] [place] [address] Protein [Mass/Vol] 6.4 g/dL Normal 6.4-8.3 [facility] Comment on above: Performed By: #### X M #### [facility] (DEFAULT) [address] [place] [address] HIGH SENSITIVITY TROPONIN I - SINGLE ORDERon 10-18-2024 hs-Troponin I 8 ng/L Normal <34 [facility] Comment on above: Order Comment: Acute Coronary Syndrome (ACS): Initial Evaluation and Management:[email or web address]/Documents/Guide lines/Acute%20Coronary%20Syndrome.pdf#search=troponin Performed By: #### X M #### [facility] (DEFAULT) [address] [place] [address] Hematocrit Auto (Bld) [Volum e fraction]Ordered By: Mihai Woods on 10-18-2024 Hematocrit (Bld) [Volume fraction] 40.2 % 37-47 [facility] Hemoglobin measurementOrdere d By: Mihai Woods on 10-18-2024 Hemoglobin (Bld) [Mass/Vol] 12.8 g/dL 12.0-15.0 [facility] Immature granulocytes/100 WB C Auto (Bld)Ordered By: Mihai Woods on 10-18-2024 Immature granulocytes/100 WBC (Bld) 0.200 % 0.0-0.9 [facility] Comment on above: IG% - Immature Granu locytes (promyelocytes, myelocytes and metamyelocytes) > 1% indicates that a LEFT SHIFT is Present. International normalized rat io (INR) calculationOrdered By: Mihai Woods on 10-18-2024 INR Coag (Bld) [Relative time] 1.2 {INR} [facility] L499.0042on 10-18-2024 Trop T High Sen Normal <=14 [facility] Comment on above: Result Comment: NO S PECIMEN COLLECTED. PATIENT DEPARTED ED. Performed By: #### L 499.0042 ####[facility] [address] [place], [address] L499.0043on 10-18-2024 Trop T High Sen Normal <=14 [facility] Comment on above: Result Comment: Canc elled via OM: Order cancelled - Patient discharged Performed By: #### L 499.0043 ####[facility] [address] [place], [address] L501.4021on 10-18-2024 Trop T High Sen 26 ng/L High <=14 [facility] Comment on above: Performed By: #### L 500.2500, L300.3900, L300.4310, L501.4021, L100.0100 ####[facility] [address] [place], [address] LIPID PANEL WITH REFLEX TO M TOMURED LDLon 10-18-2024 Calculated LDL Cholesterol 73 mg/dL Normal 0-99 [facility] Comment on above: Result Comment: [<10 0 mg/dL: Optimal] [100-129 mg/dL: Near Optimal] [130-159 mg/dL: Borderline High] [160-189 mg/dL: High] [>189 mg/dL: Very High] Performed By: #### U R #### [facility] (DEFAULT) [address] [place] [address] Cholesterol [Mass/Vol] 140 mg/dL Normal <200 [facility] Comment on above: Result Comment: [<20 0 mg/dL: Desirable] [200-239 mg/dL: Borderline High] [>239 mg/dL: High] Performed By: #### U R #### [facility] (DEFAULT) [address] [place] [address] Cholesterol in HDL [Mass/Vol] 46 mg/dL Normal >=40 [facility] Comment on above: Result Comment: [<40 mg/dL: Low (High Risk)] [>59 mg/dL: High (Low Risk)] Performed By: #### U R #### [facility] (DEFAULT) [address] [place] [address] Non HDL Cholesterol 94 mg/dL Normal <130 [facility] Comment on above: Performed By: #### U R #### [facility] (DEFAULT) [address] [place] [address] Total Cholesterol/HDL Ratio 3.0 Normal <4.5 [facility] Comment on above: Performed By: #### U R #### [facility] (DEFAULT) [address] [place] [address] Triglyceride [Mass/Vol] 106 mg/dL Normal <150 [facility] Comment on above: Result Comment: [<15 0 mg/dL: Desirable] [150-199 mg/dL: Borderline] [200-499 mg/dL: High] [>500 mg/dL: Very High] Performed By: #### U R #### [facility] (DEFAULT) [address] [address] MAGNESIUMon 10-18-2024 Magnesium [Mass/Vol] 2.0 mg/dL Normal 1.6-2.6 [facility] Comment on above: Performed By: #### X M #### [facility] (DEFAULT) [address] [address] MCV (mean corpuscular volume ) determinationOrdered By: Mihai Woods on 10-18-2024 MCV (RBC) [Entitic vol] 97.8 fL 81-99 [facility] Mean corpuscular hemoglobin (MCH) determinationOrdered By: Mihai Woods on 10-18-2024 MCH (RBC) [Entitic mass] 31.1 pg 27.0-32.0 [facility] Mean corpuscular hemoglobin concentration (MCHC) determinationOrdered By: Mihai Woods on 10-18-2024 MCHC (RBC) [Mass/Vol] 31.8 g/dL Low 32-36 [facility] Mean platelet volume determi nationOrdered By: Mihai Woods on 10-18-2024 Platelet mean volume (Bld) [Entitic vol] 9.5 fL 6.2-12.0 [facility] Monocyte percentageOrdered B y: Mihai oWods on 10-18-2024 Monocytes/100 WBC (Bld) 7.9 % 0-10 [facility] Neutrophil percentageOrdered By: Mihai Woods on 10-18-2024 Neutrophils/100 WBC (Bld) 57.3 % 47-70 [facility] Nucleated red blood cell per centageOrdered By: Mihai Woods on 10-18-2024 Nucleated RBC/100 WBC (Bld) [Ratio] 0 % 0-5 [facility] PHOSPHATE, INORGANICon 10-18 Phosphorous 3.6 mg/dL Normal 2.2-4.6 [facility] Comment on above: Performed By: #### U R #### [facility] (DEFAULT) [address] [address] PTINR-STROKEon 10-18-2024 INR Coag (PPP) [Relative time] 1.1 {INR} Normal 0.9-1.1 [facility] Comment on above: Performed By: #### X M #### [facility] (DEFAULT) [address] [address] PT Coag (PPP) [Time] 13.9 s Normal 11.9-14.2 [facility] Comment on above: Performed By: #### X M #### [facility] (DEFAULT) [address] [place] [address] PTTon 10-18-2024 aPTT Coag (Bld) [Time] 31.9 s Normal 24.0-34.3 [facility] Comment on above: Performed By: #### X M #### [facility] (DEFAULT) [address] [place] [address] Partial Thromboplast Timeon 10-18-2024 aPTT Coag (Bld) [Time] 29.2 s Normal 24.1-36.2 [facility] Comment on above: Performed By: #### L 500.2500, L300.3900, L300.4310, L501.4021, L100.0100 ####[facility] [address] [place], [address] Platelet countOrdered By: Timmy Woods on 10-18-2024 Platelets (Bld) [#/Vol] 310 10*3/uL 150-450 [facility] Potassium measurement (mass/ volume)Ordered By: Mihai Woods on 10-18-2024 Potassium (Unsp spec) [Mass/Vol] 4.6 mmol/L 3.3-5.1 [facility] Prothrombin Time w/INRon INR Coag (PPP) [Relative time] 1.2 {INR} Normal [facility] Comment on above: Performed By: #### L 500.2500, L300.3900, L300.4310, L501.4021, L100.0100 ####[facility] [address] [place], [address] PT Coag (PPP) [Time] 15.4 s High 11.7-14.9 [facility] Comment on above: Performed By: #### L 500.2500, L300.3900, L300.4310, L501.4021, L100.0100 ####[facility] [address] [place], [address] Prothrombin timeOrdered By: Mihai Woods on 10-18-2024 PT Coag (PPP) [Time] 15.4 s High 11.7-14.9 [facility] RBC Auto (Bld) [#/Vol]Ordere d By: Mihai Woods on 10-18-2024 RBC (Bld) [#/Vol] 4.11 10*6/uL Low 4.2-5.4 [facility] STROKE Brain/Head without Co nton 10-18-2024 STROKE Brain/Head without Cont Normal [facility] STROKE CTA Head AND Neck W/C onon 10-18-2024 STROKE CTA Head AND Neck W/Con Normal [facility] Serum creatinine measurement (mass/volume)Ordered By: Mihai Woods on 10-18-2024 Creatinine [Mass/Vol] 0.95 mg/dL 0.70-1.20 [facility] Serum glucose measurement (m ass/volume)Ordered By: Mihai Woods on 10-18-2024 Glucose [Mass/Vol] 98 mg/dL 70-99 [facility] Serum or plasma calcium camilo urement (mass/volume)Ordered By: Mihai Woods on 10-18-2024 Calcium [Mass/Vol] 9.6 mg/dL 7.6-11.0 [facility] Serum or plasma urea nitroge n measurement (mass/volume)Ordered By: Mihai Woods on 10-18-2024 Urea nitrogen [Mass/Vol] 17 mg/dL 4-19 [facility] Sodium levelOrdered By: Hilda Woods on 10-18-2024 Sodium [Moles/Vol] 139 mmol/L 133-145 [facility] TSH W/FT4 REFLEXon TSH 0.786 uIU/mL Normal 0.550-4.78 0 [facility] Comment on above: Performed By: #### U R #### [facility] (DEFAULT) [address] [place] [address] TYPE AND SCREENon 10-18-2024 ABO/RH(D) TYPE Positive Normal [facility] Comment on above: Performed By: #### X M #### [facility] (DEFAULT) [address] [place] [address] Specimen Expiration 10/21/2024 23:59 Normal [facility] Comment on above: Performed By: #### X M #### [facility] (DEFAULT) [address] [place] [address] Troponin T.cardiac [Mass/vol ume] in Serum or Plasma by High sensitivity methodOrdered By: Mihai Woods on 10-18-2024 Troponin T.cardiac High sensitivity method [Mass/Vol] 26 ng/L High <14 [facility] URINALYSIS REFLEX TO CULTURE PERFORMABLEon 10-18-2024 Appearance (U) Clear Normal Clear [facility] Comment on above: Order Comment: For i ndwelling catheters, specimen collection is acceptable on catheter day 1 and 2 only. ? Performed By: #### A 1CB, [id number] #### [facility] (DEFAULT) [address] [place] [address] Bacteria ABSENT Normal ABSENT [facility] Comment on above: Order Comment: For i ndwelling catheters, specimen collection is acceptable on catheter day 1 and 2 only. ? Performed By: #### A 1CB, [id number] #### [facility] (DEFAULT) [address] [place] [address] Blood Urine Trace Abnormal Negative [facility] Comment on above: Order Comment: For i ndwelling catheters, specimen collection is acceptable on catheter day 1 and 2 only. ? Performed By: #### A 1CB, [id number] #### [facility] (DEFAULT) [address] [place] [address] Color (U) Yellow Normal Yellow [facility] Comment on above: Order Comment: For i ndwelling catheters, specimen collection is acceptable on catheter day 1 and 2 only. ? Performed By: #### A 1CB, [id number] #### [facility] (DEFAULT) [address] [place] [address] Glucose Ql (U) Negative Normal Negative [facility] Comment on above: Order Comment: For i ndwelling catheters, specimen collection is acceptable on catheter day 1 and 2 only. ? Performed By: #### A 1CB, [id number] #### [facility] (DEFAULT) [address] [place] [address] Ketones Ql (U) Negative Normal Negative [facility] Comment on above: Order Comment: For i ndwelling catheters, specimen collection is acceptable on catheter day 1 and 2 only. ? Performed By: #### A 1CB, [id number] #### [facility] (DEFAULT) [address] [place] [address] Leukocyte esterase Test strip Ql (U) Trace Abnormal Negative [facility] Comment on above: Order Comment: For i ndwelling catheters, specimen collection is acceptable on catheter day 1 and 2 only. ? Performed By: #### A 1CB, [id number] #### [facility] (DEFAULT) [address] [place] [address] Nitrites Urine Negative Normal Negative [facility] Comment on above: Order Comment: For i ndwelling catheters, specimen collection is acceptable on catheter day 1 and 2 only. ? Performed By: #### A 1CB, [id number] #### [facility] (DEFAULT) [address] [place] [address] pH (U) 7.5 [pH] Abnormal 5.0-7.0 [facility] Comment on above: Order Comment: For i ndwelling catheters, specimen collection is acceptable on catheter day 1 and 2 only. ? Performed By: #### A 1CB, [id number] #### [facility] (DEFAULT) [address] [place] [address]117 Protein Urine Negative Normal Negative [facility] Comment on above: Order Comment: For i ndwelling catheters, specimen collection is acceptable on catheter day 1 and 2 only. ? Performed By: #### A 1CB, [id number] #### [facility] (DEFAULT) [address] [place] [address] RBC Urine 6-10 Abnormal 0-2 [facility] Comment on above: Order Comment: For i ndwelling catheters, specimen collection is acceptable on catheter day 1 and 2 only. ? Performed By: #### A 1CB, [id number] #### [facility] (DEFAULT) [address] [place] [address] Specific Frederick Urine 1.024 Normal 1.001-1.03 5 [facility] Comment on above: Order Comment: For i ndwelling catheters, specimen collection is acceptable on catheter day 1 and 2 only. ? Performed By: #### A 1CB, [id number] #### [facility] (DEFAULT) [address] [place] [address] Squamous/Epithelial Cells, Urine 0-2/hpf Normal 0-2/hpf, 3-5/hpf = 1+ [facility] Comment on above: Order Comment: For i ndwelling catheters, specimen collection is acceptable on catheter day 1 and 2 only. ? Performed By: #### A 1CB, [id number] #### [facility] (DEFAULT) [address] [place] [address] Urobilinogen Urine 0.2 E.U./dL Normal 0.2 E.U/dL, 1.0 E.U/dL [facility] Comment on above: Order Comment: For i ndwelling catheters, specimen collection is acceptable on catheter day 1 and 2 only. ? Performed By: #### A 1CB, [id number] #### [facility] (DEFAULT) [address] [place] [address] WBC Urine 0 - 5 Normal 0 - 5 [facility] Comment on above: Order Comment: For i ndwelling catheters, specimen collection is acceptable on catheter day 1 and 2 only. ? Performed By: #### A 1CB, [id number] #### [facility] (DEFAULT) [address] [place] [address] White blood cell (WBC) count Ordered By: Mihai Woods on 10-18-2024 WBC (Bld) [#/Vol] 8.1 10*3/uL 4.4-11.0 [facility] XR ABDOMEN 1 VIEW PORTABLEon 10-18-2024 XR [...] Dobbhoff projects over the distal stomach. Normal [facility] Bacteria Ur Culton 5 Bacteria identified Cx Nom (U) CULTURE, URINE: Mixed microbiota, including predominantly: ORGANISM ID: 1 10,000 -<50,000 CFU/ml Aerococcus urinae No susceptibility testing done. Normal [facility] Comment on above: Performed By: #### 6 30-4 ####[facility] LABCLIA [id number] [address] CNOVon 10-12-2024 CNOV Office Visit (FAMPWS ) BEHZAD HAY ([id number]) 1940 F Date Time Provider Department 10/12/24 11:20 AM TASHA DEUTSCH FAMPWS During your visit today, we recorded the following information about you: Temperature Pulse Blood pressure Weight 97.6 degrees 60/minute 138/82 53.5 kg Tasha Deutsch APRN.DIRECTOR HR COMMUNICATIONS 10/12/2024 12:16 PM Signed This is a [...] hernia History of esophagogastroduodenoscopy (EGD) 09/23/2014 [facility]: All normal HTN (hypertension) Hyperlipidemia, mixed Osteoarthritis [...] Bactrim [Sulfamethoxazole-Trimethop rim], Macrobid [Nitrofurantoin Monohyd/M-Cryst], and Orcehdb-Hep-Osd Reductase Inhibitors MEDICATIONS Current Outpatient Medications Medication [...] Brother age 76 other (CVA) Brother other (ART LIBRARIAN shunt) Brother Hypertension Sister Diabetes Sister age 66 (sepsis) Social History Tobacco Use Smoking status: Never Smokeless t (more content not included)... Normal [facility] Cardiology Visit Reporton Cardiology Visit Report Normal [facility] UA DIP, URINE (POC)on 2024 BILIRUBIN UA (POCT) Negative Negative [facility] CLARITY UA (POCT) Clear [facility] COLOR UA (POCT) Yellow [facility] GLUCOSE UA (POCT) Negative Negative mg/dL [facility] Hemoglobin Ql (U) Trace-intact Abnormal Negative [facility] Interpretation and review of laboratory results Abnormal [facility] KETONE UA (POCT) Negative Negative mg/dL [facility] LEUKOCYTES UA (POCT) Negative Negative [facility] NITRITE UA (POCT) Negative Negative [facility] PH UA (POCT) 6 4.5 - 8.0 [facility] Protein Ql (U) Negative Negative mg/dL [facility] SPECIFIC GRAVITY UA (POCT) 1.01 1.005 - 1.030 [facility] UROBILINOGEN UA (POCT) 0.2 Normal E.U./dL [facility] Location:[address], [place], [place], [id number] [place] [address] POINT OF CARE [facility] 10-06-2024 CNPN Telephone (HCSIND) BHARTIBEHZAD Lugo ([id number]) 1940 F Date Time Provider Department 10/06/24 [facility] During your visit today, we recorded the following information about you: Moni Rodríguez, DUSTIN-MANAGER PULMONARY 10/06/2024 12:10 AM Signed This patient would benefit from continued speech therapy in the outpatient setting upon discharge from home care. I am requesting orders to be placed for outpatient speech therapy services to evaluate and treat for cognitive linguistic deficits and aphasia. The patient's daughter requested the orders be placed so that she can find them in [facility]. 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] Order(s):CONSULT TO SPEECH THERAPY [[id number]] Order #: [id number]: 1 FUTURE Prescriptions as of 10/07/2024 - [...] osteoarthritis of right hip [M16.11] 02/27/2017 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 (HCC) [ZQT9912] 07/28/2017 07/06/2018 Collagenous colitis [K52.831] 12/21/2018 IBS (irritable bowel syndrome) [K58.9] 12/21/2018 Hiatal hernia [K44.9] 09/11/2020 Fall from standing [W19.XXXA] 06/05/2021 Rotator cuff tear arthropathy, left [M75.102, M*10/29/2021 Paroxysmal atrial fibrillation (HCC) [I48.0] 04/11/2022 Primary hypertension [I10] 12/30/2022 Acute pain of right shoulder [M25.511] 04/16/2023 Severe pain of left shoulder [M25.512] 04/16/2023 Cervicalgia [M54.2] 04/16/2023 Encounter Status:Closed by WINSOME BUTLER on 10/07/24 Normal [facility]3 [facility] 25-hydroxyvitamin D3 [Mass/Vol] 46.6 ng/mL Normal 31.0-80.0 [facility] Comment on above: Order Comment: Speci men Type: BLOOD SPECIMENOrdering Facility: [facility] Address: [address] [place] [address] [place] [address] Performed By: #### 1 989-3 ####[facility] LABCLIA [id number] [place] [address] [place] Basic metabolic 2000 panelon 10-04-2024 Anion gap [Moles/Vol] 9 mmol/L Normal 8-15 [facility] Comment on above: Order Comment: Speci men Type: BLOOD SPECIMENOrdering Facility: [facility] Address: [address] [place], [place] [address] Performed By: #### 5 0190-8, 37869-4, 2131-12, 2275-07 ####[facility] LABCLIA [id number] [address] [address] [place] Calcium [Mass/Vol] 10.5 mg/dL High 8.5-10.2 [facility] Comment on above: Order Comment: Speci men Type: BLOOD SPECIMENOrdering Facility: [facility] Address: [address] [place] [address] Performed By: #### 5 0190-8, 69609-9, 2131-12, 2275-07 ####[facility] LABCLIA [id number] [place] [id number] [place] Chloride [Moles/Vol] 99 mmol/L Normal 98-107 [facility] Comment on above: Order Comment: Speci men Type: BLOOD SPECIMENOrdering Facility: [facility] Address: [address] [place] [address] Performed By: #### 5 0190-8, 86701-3, 2131-12, 2275-07 ####[facility] LABCLIA [id number] [address] [address] [place] CO2 [Moles/Vol] 26 mmol/L Normal 22-30 [facility] Comment on above: Order Comment: Speci men Type: BLOOD SPECIMENOrdering Facility: [facility] Address: [address] [place], [place] [address] Performed By: #### 5 0190-8, 49773-6, 2131-12, 2275-07 ####[facility] LABCLIA [id number] [facility] [address] [address] [place] Creatinine [Mass/Vol] 0.84 mg/dL Normal 0.58-0.96 [facility] Comment on above: Order Comment: Cheri jimenez Type: BLOOD SPECIMENOrdering Facility: [facility] Address: [address] [place] [address] Performed By: #### 5 0190-8, 02189-7, 2131-12, 2275-07 ####[facility] LABCLIA [id number] [place] [address] [place] Creatinine and Glomerular filtration rate.predicted panel (S/P/Bld) 68 mL/min/1.73m??? Normal >=60 [facility] Comment on above: Order Comment: Cheri jimenez Type: BLOOD SPECIMENOrdering Facility: [facility] Address: [address] [place] [address] Result Comment: Pattie mated Glomerular Filtration Rate [...] actual GFR. Performed By: #### 5 0190-8, 33151-7, 2131-12, 2275-07 ####[facility] LABCLIA [id number] [address] [address] [place] Glucose [Mass/Vol] 87 mg/dL Normal 74-99 [facility] Comment on above: Order Comment: Cheri jimenez Type: BLOOD SPECIMENOrdering Facility: [facility] Address: [address] [place] [address] Result Comment: The [place] Diabetes Association (ADA) provides guidance for cutoff [...] Standards of Medical Care in Diabetes 2016, [place] [employer]. Diabetes Care. 2016.39(Suppl 1). Performed By: #### 5 0190-8, 46820-8, 2131-12, 2275-07 ####[facility] LABCLIA [id number] [address] [address] [place] Potassium [Moles/Vol] 5.1 mmol/L Normal 3.7-5.1 [facility] Comment on above: Order Comment: Speci men Type: BLOOD SPECIMENOrdering Facility: [facility] Address: [address] [place] [address] Performed By: #### 5 0190-8, 57444-9, 2131-12, 2275-07 ####[facility] LABIA [id number] [place] [address] [place] Sodium [Moles/Vol] 134 mmol/L Low 136-144 [facility] Comment on above: Order Comment: Speci men Type: BLOOD SPECIMENOrdering Facility: [facility] Address: [address] [place] [address] Performed By: #### 5 0190-8, 22506-0, 2131-12, 2275-07 ####[facility] LABIA [id number] [place] [address] [place] Urea nitrogen [Mass/Vol] 17 mg/dL Normal 7-21 [facility] Comment on above: Order Comment: Speci men Type: BLOOD SPECIMENOrdering Facility: [facility] Address: [address] [place] [address] Performed By: #### 5 0190-8, 26508-5, 2131-12, 2275-07 ####[facility] LABCLIA [id number] [address] [address] [place] CBC W Auto Differential pane l (Bld)on 10-04-2024 Basophils (Bld) [#/Vol] 0.1 10*3/uL [facility] Basophils/100 WBC (Bld) 1.7 % [facility] Differential cell count method Nom (Bld) Auto [facility] Eosinophils (Bld) [#/Vol] 0.25 10*3/uL [facility] Eosinophils/100 WBC (Bld) 4.1 % [facility] Erythrocyte distribution width (RBC) [Ratio] 12.7 % 11.5 - 15.0 % [facility] Hematocrit (Bld) [Volume fraction] 38.7 % 36.0 - 46.0 % [facility] Hemoglobin (Bld) [Mass/Vol] 12.3 g/dL 11.5 - 15.5 g/dL [facility] Immature granulocytes (Bld) [#/Vol] 0.04 10*3/uL [facility] Immature granulocytes/100 WBC (Bld) 0.7 % [facility] Lymphocytes (Bld) [#/Vol] 1.35 10*3/uL [facility] Lymphocytes/100 WBC (Bld) 22.4 % [facility] MCH (RBC) [Entitic mass] 31.3 pg 26.0 - 34.0 pg [facility] MCHC (RBC) [Mass/Vol] 31.8 g/dL 30.5 - 36.0 g/dL [facility] MCV (RBC) [Entitic vol] 98.5 fL 80.0 - 100.0 fL [facility] Monocytes (Bld) [#/Vol] 0.51 10*3/uL [facility] Monocytes/100 WBC (Bld) 8.5 % [facility] Neutrophils (Bld) [#/Vol] 3.78 10*3/uL [facility] Neutrophils/100 WBC (Bld) 62.6 % [facility] Nucleated RBC (Bld) [#/Vol] [facility] Nucleated RBC/100 WBC (Bld) [Ratio] 0 % /100 WBC [facility] Platelet mean volume (Bld) [Entitic vol] 9.8 fL 9.0 - 12.7 fL [facility] Platelets (Bld) [#/Vol] 314 10*3/uL [facility] RBC (Bld) [#/Vol] 3.93 10*6/uL 3.90 - 5.20 m/uL [facility] WBC (Bld) [#/Vol] 6.03 10*3/uL [facility] Basophils (Bld) [#/Vol] 0.10 10*3/uL Normal <0.11 [facility] Comment on above: Order Comment: Speci men Type: BLOOD SPECIMENOrdering Facility: [facility] Address: [address] [place] [address] Performed By: #### 5 7021-8 ####[facility] LABCLIA [id number] [place] [address] [place] Basophils/100 WBC (Bld) 1.7 % Normal [facility] Comment on above: Order Comment: Speci men Type: BLOOD SPECIMENOrdering Facility: [facility] Address: [address] [place] [address] Performed By: #### 5 7021-8 ####[facility] LABCLIA [id number] [place] [address] [place] Differential cell count method Nom (Bld) Auto Normal [facility] Comment on above: Order Comment: Speci men Type: BLOOD SPECIMENOrdering Facility: [facility] Address: [address] [place] [address] Performed By: #### 5 7021-8 ####[facility] LABCLIA [id number] [place] [address] [place] Eosinophils (Bld) [#/Vol] 0.25 10*3/uL Normal <0.46 [facility] Comment on above: Order Comment: Speci men Type: BLOOD SPECIMENOrdering Facility: [facility] Address: [address] [place] [address] Performed By: #### 5 7021-8 ####[facility] LABCLIA [id number] [place] [address] [place] Eosinophils/100 WBC (Bld) 4.1 % Normal [facility] Comment on above: Order Comment: Speci men Type: BLOOD SPECIMENOrdering Facility: [facility] Address: [address] [place] [address] Performed By: #### 5 7021-8 ####[facility] LABCLIA [id number] [place] [address] [place] Erythrocyte distribution width (RBC) [Ratio] 12.7 % Normal 11.5-15.0 [facility] Comment on above: Order Comment: Speci men Type: BLOOD SPECIMENOrdering Facility: [facility] Address: [address] [place] [address] Performed By: #### 5 7021-8 ####[facility] LABIA [id number] [place] [address] [place] Hematocrit (Bld) [Volume fraction] 38.7 % Normal 36.0-46.0 [facility] Comment on above: Order Comment: Speci men Type: BLOOD SPECIMENOrdering Facility: [facility] Address: [address] [place] [address] Performed By: #### 5 7021-8 ####[facility] LABIA [id number] [place] [address] [place] Hemoglobin (Bld) [Mass/Vol] 12.3 g/dL Normal 11.5-15.5 [facility] Comment on above: Order Comment: Speci men Type: BLOOD SPECIMENOrdering Facility: [facility] Address: [address] [place] [address] Performed By: #### 5 7021-8 ####[facility] LABIA [id number] [place] [address] [place] Immature granulocytes (Bld) [#/Vol] 0.04 10*3/uL Normal <0.10 [facility] Comment on above: Order Comment: Speci men Type: BLOOD SPECIMENOrdering Facility: [facility] Address: [address] [place] [address] Performed By: #### 5 7021-8 ####[facility] LABCLIA [id number] [place] [address] [place] Immature granulocytes/100 WBC (Bld) 0.7 % Normal [facility] Comment on above: Order Comment: Speci men Type: BLOOD SPECIMENOrdering Facility: [facility] Address: [address] [place] [address] Performed By: #### 5 7021-8 ####[facility] LABCLIA [id number] [place] [address] [place] Lymphocytes (Bld) [#/Vol] 1.35 10*3/uL Normal 1.00-4.00 [facility] Comment on above: Order Comment: Speci men Type: BLOOD SPECIMENOrdering Facility: [facility] Address: [address] [place] [address] Performed By: #### 5 7021-8 ####[facility] LABIA [id number] [address] [place] Lymphocytes/100 WBC (Bld) 22.4 % Normal [facility] Comment on above: Order Comment: Speci men Type: BLOOD SPECIMENOrdering Facility: [facility] Address: [address] [place] [address] Performed By: #### 5 7021-8 ####[facility] LABIA [id number] [place] [address] [place] MCH (RBC) [Entitic mass] 31.3 pg Normal 26.0-34.0 [facility] Comment on above: Order Comment: Speci men Type: BLOOD SPECIMENOrdering Facility: [facility] Address: [address] [place] [address] Performed By: #### 5 7021-8 ####[facility] LABCLIA [id number] [place] [id number] [place] MCHC (RBC) [Mass/Vol] 31.8 g/dL Normal 30.5-36.0 [facility] Comment on above: Order Comment: Speci men Type: BLOOD SPECIMENOrdering Facility: [facility] Address: [address] [place] [address] Performed By: #### 5 7021-8 ####[facility] LABCLIA [id number] [address] [address] [place] MCV (RBC) [Entitic vol] 98.5 fL Normal 80.0-100.0 [facility] Comment on above: Order Comment: Speci men Type: BLOOD SPECIMENOrdering Facility: [facility] Address: [address] [place] [address] Performed By: #### 5 7021-8 ####[facility] LABCLIA [id number] [place] [address] [place] Monocytes (Bld) [#/Vol] 0.51 10*3/uL Normal <0.87 [facility] Comment on above: Order Comment: Speci men Type: BLOOD SPECIMENOrdering Facility: [facility] Address: [address] [place] [address] Performed By: #### 5 7021-8 ####[facility] LABCLIA [id number] [place] [address] [place] Monocytes/100 WBC (Bld) 8.5 % Normal [facility] Comment on above: Order Comment: Speci men Type: BLOOD SPECIMENOrdering Facility: [facility] Address: [address] [place] [address] Performed By: #### 5 7021-8 ####[facility] LABCLIA [id number] [place] [address] [place] Neutrophils (Bld) [#/Vol] 3.78 10*3/uL Normal 1.45-7.50 [facility] Comment on above: Order Comment: Speci men Type: BLOOD SPECIMENOrdering Facility: [facility] Address: [address] [place] [address] Performed By: #### 5 7021-8 ####[facility] LABCLIA [id number] [place] [address] [place] Neutrophils/100 WBC (Bld) 62.6 % Normal [facility] Comment on above: Order Comment: Speci men Type: BLOOD SPECIMENOrdering Facility: [facility] Address: [address] [place] [address] Performed By: #### 5 7021-8 ####[facility] LABCLIA [id number] [place] [address] [place] Nucleated RBC (Bld) [#/Vol] 10*3/uL Normal <0.01 [facility] Comment on above: Order Comment: Speci men Type: BLOOD SPECIMENOrdering Facility: [facility] Address: [address] [place] [address] Performed By: #### 5 7021-8 ####[facility] LABIA [id number] [place] [address] [place] Nucleated RBC/100 WBC (Bld) [Ratio] 0.0 /100 WBC Normal [facility] Comment on above: Order Comment: Speci men Type: BLOOD SPECIMENOrdering Facility: [facility] Address: [address] [place] [address] Performed By: #### 5 7021-8 ####[facility] LABIA [id number] [place] [address] [place] Platelet mean volume (Bld) [Entitic vol] 9.8 fL Normal 9.0-12.7 [facility] Comment on above: Order Comment: Speci men Type: BLOOD SPECIMENOrdering Facility: [facility] Address: [address] [place] [address] Performed By: #### 5 7021-8 ####[facility] LABIA [id number] [place] [address] [place] Platelets (Bld) [#/Vol] 314 10*3/uL Normal 150-400 [facility] Comment on above: Order Comment: Speci men Type: BLOOD SPECIMENOrdering Facility: [facility] Address: [address] [place] [address] Performed By: #### 5 7021-8 ####[facility] LABIA [id number] [place] [address] [place] RBC (Bld) [#/Vol] 3.93 10*6/uL Normal 3.90-5.20 [facility] Comment on above: Order Comment: Speci men Type: BLOOD SPECIMENOrdering Facility: [facility] Address: [address] [place] [address] Performed By: #### 5 7021-8 ####[facility] LABIA [id number] [place] [address] [place] WBC (Bld) [#/Vol] 6.03 10*3/uL Normal 3.70-11.00 [facility] Comment on above: Order Comment: Speci men Type: BLOOD SPECIMENOrdering Facility: [facility] Address: [address] [place] [address] Performed By: #### 5 7021-8 ####[facility] LABIA [id number] [address] [place] CNOVon 10-04-2024 CNOV Office Visit (FAMPWS ) BEHZAD HAY ([id number]) 1940 F Date Time Provider Department 10/04/24 10:40 AM TASHA DEUTSCH FAMPWS During your visit today, we recorded the following information about you: Pulse Blood pressure Weight 46/minute 136/62 51.7 kg Tasha DeutschEAN.DIRECTOR HR COMMUNICATIONS 10/04/2024 11:22 AM Signed This is a 84 year old female who presents today with: Patient presents with: Hospital F/U HISTORY OF PRESENT ILLNESS: Behzad Hay is a 84 year old female. 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 Wanting to consider Watchman's. Went [...] Bactrim [Sulfamethoxazole-Trimethop rim], Macrobid [Nitrofurantoin Monohyd/M-Cryst], and Arahhsa-Dij-Lyv Reductase Inhibitors MEDICATIONS Current Outpatient Medications Medication [...] CAPSICUM, CAYENNE (more content not included)... Normal [facility] Ferritin SerPl-ncon 2024 Ferritin [Mass/Vol] 91.0 ng/mL Normal 14.7-205.1 [facility] Comment on above: Order Comment: Speci men Type: BLOOD SPECIMENOrdering Facility: [facility] Address: [address] [place] [address] Performed By: #### 5 0190-8, 81139-7, 2131-12, 2275-07 ####[facility] LABIA [id number] [place] [id number] [place] Iron and Iron binding capaci panel 10-04-2024 Iron [Mass/Vol] 92 ug/dL Normal 41-186 [facility] Comment on above: Order Comment: Speci men Type: BLOOD SPECIMENOrdering Facility: [facility] Address: [address] [place] [address] Performed By: #### 5 0190-8, 23433-8, 2131-12, 2275-07 ####[facility] LABIA [id number] [place] [address] [place] Iron binding capacity [Mass/Vol] 308 ug/dL Normal 232-386 [facility] Comment on above: Order Comment: Speci men Type: BLOOD SPECIMENOrdering Facility: [facility] Address: [address] [place] [address] Performed By: #### 5 0190-8, 56347-4, 2131-12, 2275-07 ####[facility] LABIA [id number] [place] [id number] [place] Iron/TIBC [Molar ratio] 29.9 % Normal 15.0-57.0 [facility] Comment on above: Order Comment: Cheri jimenez Type: BLOOD SPECIMENOrdering Facility: [facility] Address: [address] [place], [place] [address] Performed By: #### 5 0190-8, 49349-6, 2131-9, 2275-4 ####[facility] LABCLIA [id number] [place] [id number] [facility] [place] Neurology Visit Reporton Neurology Visit Report Normal [facility] Vit B12 SerPl-ncon 025 Cobalamin (Vitamin B12) [Mass/Vol] 1442 pg/mL High 232-1245 [facility] Comment on above: Order Comment: Cheri jimenez Type: BLOOD SPECIMENOrdering Facility: [facility] Address: [address] [place] [address] Performed By: #### 5 0190-8, 96136-9, 9, 4 ####[facility] LABCLIA [id number] [address] [address] [facility] CNPNon 09-27-2024 CNPN Telephone ([facility]) BHARTIBEHZAD ([id number]) 1940 F Date Time Provider Department 09/27/24 [...] Rash MACROBID (NITROFURANTOIN MONOHYD/*09/25/2018 2 - Rash QAGCSGQ-KWM-XFR REDUCTASE INHIBIT*10/06/2014 5 - Intolerance Comments: severe [...] osteoarthritis of right hip [M16.11] 02/27/2017 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 (HCC) [UGM3550] 07/28/2017 07/06/2018 Collagenous colitis [K52.831] 12/21/2018 IBS (irritable bowel syndrome) [K58.9] 12/21/2018 Hiatal hernia [K44.9] 09/11/2020 Fall from standing [W19.XXXA] 06/05/2021 Rotator cuff tear arthropathy, left [M75.102, M*10/29/2021 Paroxysmal atrial fibrillation (HCC) [I48.0] 04/11/2022 Primary hypertension [I10] 12/30/2022 Acute pain of right shoulder [M25.511] 04/16/2023 Severe pain of left shoulder [M25.512] 04/16/2023 Cervicalgia [M54.2] 04/16/2023 Encounter Status:Closed by MOSES ROSS on 09/27/24 [facility] ([id number]) 1940 F Date Time Provider Department 09/24/24 [facility] During your visit today, we recorded the following information about you: GetTasha APRN.CNP 09/24/2024 12:45 PM Signed Patient was admitted to [facility] on August 22, 2024 and discharged September [...] 19, creatinine 0.98, glucose 101 Tasha Deutsch APRN.DIRECTOR HR COMMUNICATIONS 11/09/2024 5:27 PM Signed Patient was discharged [...] Rash MACROBID (NITROFURANTOIN MONOHYD/*09/25/2018 2 - Rash EMGWPZJ-GKC-OMN REDUCTASE INHIBIT*10/06/2014 5 - Intolerance Comments: severe leg pain Date Reviewed: 09/22/2024 Reviewed by: Jocelyn Hernandez, RN - Fully Assessed Prescriptions as of 11/09/2024 - acetaminophen (TYLENOL ARTHRITIS PAIN) 650 mg CR tablet Take 650 mg by mouth once daily. - Cholecalciferol, Vitamin D3, (VITAMIN D) 25 mcg (1,000 unit) cap Take 1,000 Units by mouth o (more content not included)... Normal [facility] 09-23-2024 [facility] ([id number]) 1940 F Date Time Provider Department 09/23/24 CESAR JONES During your visit today, we recorded the following information about you: Cesar Jones LSW 09/23/2024 1:02 PM Signed 09/23/24 PANTOGRAPH I ENGRAVER called the pt.'s daughter Aditi Carvalho regarding community resources for the pt. The pt.'s daughter stated that she lives in [place] but her brother the pt.'s son lives [...] the pt. is doing after next week. PANTOGRAPH I ENGRAVER asked about the pt. being and if her was a [place]. The pt.'s daughter stated the pt.'s was not a [place]. The pt.'s daughter stated they were looking for a private Aide not through an Agency. PANTOGRAPH I ENGRAVER discussed [employer] and the pt.'s daughter stated her dreygb-ab-qbw was looking on [employer]. She stated her hzvscg-bz-xfi had a in her family. PANTOGRAPH I ENGRAVER asked the pt.'s daughter if the pt. belonged to a yarsanism and possibly asking the yarsanism of anyone. The pt.'s daughter stated the pt. does belong to a yarsanism. PANTOGRAPH I ENGRAVER discussed [facility] on Aging AND Disabilities for PASSP[employer]. The pt.'s daughter was aware of [employer]SP[employer] and stated the pt. did not meet financial guidelines for Medicaid. PANTOGRAPH I ENGRAVER asked the pt.'s daughter if the pt. owns her home and educated on Estate Recovery on PASSPORT. PANTOGRAPH I ENGRAVER asked about transportation and family is able to get the pt. to appointments. PANTOGRAPH I ENGRAVER discussed Home Delivered Meal providers and the Aides will make the pt.'s meals. PANTOGRAPH I ENGRAVER asked the pt.'s daughter if the pt. had an ER Medical Alert and she stated they were going to look into this. PANTOGRAPH I ENGRAVER educated on getting an ER Medical Alert through [facility]. The pt.'s daughter wanted PANTOGRAPH I ENGRAVER to Email her information on ER Medical Alert providers. Her Email: [email or web address] The pt.'s daughter stated she just wanted to know about community resources and she feels they are managing the pt.'s care and the pt. having the hired Aide starting next week. PANTOGRAPH I ENGRAVER provided the pt.'s daughter with her name and phone number. 09/23/24 PANTOGRAPH I ENGRAVER Emailed the pt.'s daughter information on getting an ER Medical Alert through [facility] and other ER Medical Alerts and website for [employer] [place] on Aging. Thank You, Allergies As of Date: 09/23/2024 Noted Allergy Reaction ADHESIVE TAPE (ROSINS) 08/27/2011 2 - Rash BACTRIM (SULFAMETHOXAZOLE-TRIMETH*0 09/25/2018 2 - Rash MACROBID (NITROFURANTOIN MONOHYD/*09/25/2018 2 - Rash DSJHCUT-VCJ-AWQ REDUCTASE INHIBIT*10/06/2014 5 - Intolerance Comments: severe [...] osteoarthritis of right hip [M16.11] 02/27/2017 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 (HCC) [[id number]] 07/28/2017 07/06/2018 Collagenous colitis [K52.831] 12/21/2018 IBS (irritable bowel syn (more content not included)... Normal [facility] CNCAjit 09-22-2024 CNCO Letter Text Normal [facility] CNPChelsea 09-21-2024 CNPN Telephone (HCSIND) BHARTIBEHZAD Lugo ([id number]) 1940 F Date Time Provider Department 09/21/24 [...] Rash MACROBID (NITROFURANTOIN MONOHYD/*09/25/2018 2 - Rash ZMORHBZ-BOQ-MAN REDUCTASE INHIBIT*10/06/2014 5 - Intolerance Date Reviewed: 04/26/2024 Reviewed by: Tasha Deutsch APRN.DIRECTOR HR COMMUNICATIONS - Fully Assessed Prescriptions as of 09/21/2024 [...] osteoarthritis of right hip [M16.11] 02/27/2017 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 (HCC) [RPT8711] 07/28/2017 07/06/2018 Collagenous colitis [K52.831] 12/21/2018 IBS (irritable bowel syndrome) [K58.9] 12/21/2018 Hiatal hernia [K44.9] 09/11/2020 Fall from standing [W19.XXXA] 06/05/2021 Rotator cuff tear arthropathy, left [M75.102, M*10/29/2021 Paroxysmal atrial fibrillation (HCC) [I48.0] 04/11/2022 Primary hypertension [I10] 12/30/2022 Acute pain of right shoulder [M25.511] 04/16/2023 Severe pain of left shoulder [M25.512] 04/16/2023 Cervicalgia [M54.2] 04/16/2023 Encounter Status:Closed by NGA MCCALL on 09/21/24 Normal [facility] CNCOon 09-20-2024 CNCO Letter Text Normal [facility] Anion gap in Serum or Plasma Ordered By: Behzad Dorado on 09-17-2024 Anion gap [Moles/Vol] 9 mmol/L 08-26 [facility] BUN/creatinine ratioOrdered By: Behzad Dorado on 09-17-2024 Urea nitrogen/Creatinine [Mass ratio] 19.3 mg/mg 01-31 [facility] Basic Metabolic Profile (BMP )on 09-17-2024 BUN/CRE 19.3 RATIO Normal 01-31 [facility] Comment on above: Performed By: #### L 100.0500, L500.2500 ####[facility] [address] [place], [address] Calcium [Mass/Vol] 9.3 mg/dL Normal 7.6-11.0 [facility] Comment on above: Performed By: #### L 100.0500, L500.2500 ####[facility] [address] [place], [address] Chloride [Moles/Vol] 105 mmol/L Normal 98-108 [facility] Comment on above: Performed By: #### L 100.0500, L500.2500 ####[facility] [address] [place], [address] CO2 [Moles/Vol] 25.4 mmol/L Normal 21.0-32.0 [facility] Comment on above: Performed By: #### L 100.0500, L500.2500 ####[facility] [address] [place], [address] Creatinine [Mass/Vol] 0.98 mg/dL Normal 0.70-1.20 [facility] Comment on above: Performed By: #### L 100.0500, L500.2500 ####[facility] [address] [place], [address] ECRCL 32.59 ml/min Low 50-250 [facility] Comment on above: Performed By: #### L 100.0500, L500.2500 ####[facility] [address] [place], [address] GAP 9 Normal 5-15 [facility] Comment on above: Performed By: #### L 100.0500, L500.2500 ####[facility] [address] [place], [address] GFR/1.73 sq M.predicted among non-blacks MDRD (S/P/Bld) [Vol rate/Area] 56 mL/min/{1.73_m2} Low >60 [facility] Comment on above: Result Comment: mL/m in/1.73m2 CKD-EPI Creatinine Equation (2020) Performed By: #### L 100.0500, L500.2500 ####[facility] [address] [place], [address] Glucose [Mass/Vol] 101 mg/dL High 70-99 [facility] Comment on above: Performed By: #### L 100.0500, L500.2500 ####[facility] [address] [place], [address] Potassium [Moles/Vol] 4.3 mmol/L Normal 3.3-5.1 [facility] Comment on above: Performed By: #### L 100.0500, L500.2500 ####[facility] [address] [place], [address] Sodium [Moles/Vol] 140 mmol/L Normal 133-145 [facility] Comment on above: Performed By: #### L 100.0500, L500.2500 ####[facility] [address] [place], [address] Urea nitrogen [Mass/Vol] 19 mg/dL Normal 4-19 [facility] Comment on above: Performed By: #### L 100.0500, L500.2500 ####[facility] [address] [place], [address] CBC-Complete Blood Cnt No Di ffon 09-17-2024 Erythrocyte distribution width (RBC) [Ratio] 12.4 % Normal 11.6-14.6 [facility] Comment on above: Performed By: #### L 100.0500, L500.2500 ####[facility] [address] [place], [address] Hematocrit (Bld) [Volume fraction] 34.5 % Low 37-47 [facility] Comment on above: Performed By: #### L 100.0500, L500.2500 ####[facility] [address] [place], [address] Hemoglobin (Bld) [Mass/Vol] 11.1 g/dL Low 12.0-15.0 [facility] Comment on above: Performed By: #### L 100.0500, L500.2500 ####[facility] [address] [place], [address] MCH (RBC) [Entitic mass] 31.0 pg Normal 27.0-32.0 [facility] Comment on above: Performed By: #### L 100.0500, L500.2500 ####[facility] [address] [place], [address] MCHC (RBC) [Mass/Vol] 32.2 g/dL Normal 32-36 [facility] Comment on above: Performed By: #### L 100.0500, L500.2500 ####[facility] [address] [place], [address] MCV (RBC) [Entitic vol] 96.4 fL Normal 81-99 [facility] Comment on above: Performed By: #### L 100.0500, L500.2500 ####[facility] [address] [place], [address] Platelet mean volume (Bld) [Entitic vol] 9.2 fL Normal 6.2-12.0 [facility] Comment on above: Performed By: #### L 100.0500, L500.2500 ####[facility] [address] [place], [address] Platelets (Bld) [#/Vol] 249 10*3/uL Normal 150-450 [facility] Comment on above: Performed By: #### L 100.0500, L500.2500 ####[facility] [address] [place], [address] RBC (Bld) [#/Vol] 3.58 10*6/uL Low 4.2-5.4 [facility] Comment on above: Performed By: #### L 100.0500, L500.2500 ####[facility] [address] [place], [address] RDW SD 43.9 fl Normal 35.1-43.9 [facility] Comment on above: Performed By: #### L 100.0500, L500.2500 ####[facility] [address] [place], [address] WBC (Bld) [#/Vol] 5.6 10*3/uL Normal 4.4-11.0 [facility] Comment on above: Performed By: #### L 100.0500, L500.2500 ####[facility] [address] [place], [address] CNPNon 09-17-2024 [facility] Telephone (HCSIND) BEHZAD HAY ([id number]) 1940 F Date Time Provider Department 09/17/24 ASAD BUTLER HCSIND During your visit today, we recorded the following information about you: Tamela James 09/17/2024 1:50 PM Signed Date/Time: 09/17/2024 1:48 PM Spoke with ADITI CARVALHO@ phone #: [phone] - Preferred # for contact: ADITI CARVALHO@ phone #: [phone] Have you received help from a home care company in the last 60 days? NO Are you agreeable to [facility] services? YES What [address] will we be seeing you at? [address] [facility] [address] Do you have any upcoming appointments or things we need to schedule around? NO Do you have a teachable CG or can you manage your care independently? CG Who? 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 07/06/2018 Collagenous colitis [K52.831] 12/21/2018 IBS (irritable bowel syndrome) [K58.9] 12/21/2018 Hiatal hernia [K44.9] 09/11/2020 Fall from standing [W19.XXXA] 06/05/2021 Rotator cuff tear arthropathy, left [M75.102, M*10/29/2021 Paroxysmal atrial fibrillation (HCC) [I48.0] 04/11/2022 Primary hypertension [I10] 12/30/2022 Acute pain of right shoulder [M25.511] 04/16/2023 Severe pain of left shoulder [M25.512] 04/16/2023 Cervicalgia [M54.2] 04/16/2023 Encounter Status:Closed by ASAD BUTLER on 09/17/24 Normal [facility] Telephone (HCSIND) BEHZAD HAY ([id number]) 1940 F Date Time Provider Department 09/17/24 [...] care clinicians may also obtain orders from [facility] Providers Thank you and we would be happy to answer any questions. Elisha Thompson LPN 09/17/2024 12:28 PM Tasha Deutsch APRN.CNP 09/17/2024 12:55 PM Signed Yes. I will follow Allergies As of Date: 09/17/2024 Noted Allergy Reaction ADHESIVE TAPE (ROSINS) 08/27/2011 2 - Rash BACTRIM (SULFAMETHOXAZOLE-TRIMETH*0 09/25/2018 2 - Rash MACROBID (NITROFURANTOIN MONOHYD/*09/25/2018 2 - Rash LQFWQGB-VES-THQ REDUCTASE INHIBIT*10/06/2014 5 - Intolerance Date Reviewed: [...] hip [M16.11] 02/27/2017 Iatrogenic Jesse's disease (HCC) [OGV7264] 07/28/2017 07/06/2018 Collagenous colitis [K52.831] 12/21/2018 IBS (irritable bowel syndrome) [K58.9] 12/21/2018 Hiatal hernia [K44.9] 09/11/2020 Fall from standing [W19.XXXA] 06/05/2021 Rotator cuff tear arthropathy, left [M75.102, M*10/29/2021 Paroxysmal atrial fibrillation (HCC) [I48.0] 04/11/2022 Primary hypertension [I10] 12/30/2022 Acute pain of right shoulder [M25.511] 04/16/2023 Severe pain of left shoulder [M25.512] 04/16/2023 Cervicalgia [M54.2] 04/16/2023 Encounter Status:Closed by ELISHA THOMPSON on 09/17/24 Normal [facility] Carbon dioxide, total [Moles /volume] in Central venous bloodOrdered By: Behzad Dorado on 09-17-2024 CO2 [Moles/Vol] 25.4 mmol/L 21.0-32.0 [facility] Chloride assayOrdered By: Amandeep Dorado on 09-17-2024 Chloride [Moles/Vol] 105 mmol/L 98-108 [facility] Discharge Instructionon Discharge Instruction Normal [facility] Erythrocyte distribution wid th ratioOrdered By: Behzad Dorado on 09-17-2024 Erythrocyte distribution width (RBC) [Ratio] 12.4 % 11.6-14.6 [facility] Erythrocyte distribution wid th standard deviationOrdered By: Behzad Dorado on 09-17-2024 Erythrocyte distribution width (RBC) [Ratio] 43.9 fl 35.1-43.9 [facility] Glomerular filtration rate ( GFR) estimation/1.73 sq m using serum, plasma, or whole bOrdered By: Behzad Dorado on 09-17-2024 GFR/1.73 sq M.predicted among non-blacks MDRD (S/P/Bld) [Vol rate/Area] 56 mL/min/{1.73_m2} Low >60 [facility] Comment on above: mL/min/1.73m2 CKD-EP I Creatinine Equation (2020) Hematocrit Auto (Bld) [Volum e fraction]Ordered By: Behzad Dorado on 09-17-2024 Hematocrit (Bld) [Volume fraction] 34.5 % Low 37-47 [facility] Hemoglobin measurementOrdere d By: Behzad Dorado on 09-17-2024 Hemoglobin (Bld) [Mass/Vol] 11.1 g/dL Low 12.0-15.0 [facility] MCV (mean corpuscular volume ) determinationOrdered By: Behzad Dorado on 09-17-2024 MCV (RBC) [Entitic vol] 96.4 fL 81-99 [facility] Mean corpuscular hemoglobin (MCH) determinationOrdered By: Behzad Dorado on 09-17-2024 MCH (RBC) [Entitic mass] 31.0 pg 27.0-32.0 [facility] Mean corpuscular hemoglobin concentration (MCHC) determinationOrdered By: Behzad Dorado on 09-17-2024 MCHC (RBC) [Mass/Vol] 32.2 g/dL 32-36 [facility] Mean platelet volume determi nationOrdered By: Behzad Dorado on 09-17-2024 Platelet mean volume (Bld) [Entitic vol] 9.2 fL 6.2-12.0 [facility] Platelet countOrdered By: Amandeep Dorado on 09-17-2024 Platelets (Bld) [#/Vol] 249 10*3/uL 150-450 [facility] Potassium measurement (mass/ volume)Ordered By: Behzad Dorado on 09-17-2024 Potassium (Unsp spec) [Mass/Vol] 4.3 mmol/L 3.3-5.1 [facility] RBC Auto (Bld) [#/Vol]Ordere d By: Behzad Dorado on 09-17-2024 RBC (Bld) [#/Vol] 3.58 10*6/uL Low 4.2-5.4 [facility] Serum creatinine measurement (mass/volume)Ordered By: Behzad Dorado on 09-17-2024 Creatinine [Mass/Vol] 0.98 mg/dL 0.70-1.20 [facility] Serum glucose measurement (m ass/volume)Ordered By: Behzad Dorado on 09-17-2024 Glucose [Mass/Vol] 101 mg/dL High 70-99 [facility] Serum or plasma calcium camilo urement (mass/volume)Ordered By: Behzad Dorado on 09-17-2024 Calcium [Mass/Vol] 9.3 mg/dL 7.6-11.0 [facility] Serum or plasma urea nitroge n measurement (mass/volume)Ordered By: Behzad Dorado on 09-17-2024 Urea nitrogen [Mass/Vol] 19 mg/dL 4-19 [facility] Sodium levelOrdered By: Behzad Dorado on 09-17-2024 Sodium [Moles/Vol] 140 mmol/L 133-145 [facility] Stool Lactoferrin/WBCon 06-5 WBCST Normal Reference [place] = Negative Fecal WBC Lactoferrin A Positive: Fecal WBC Lactoferrin present A Normal [facility] Comment on above: Performed By: #### M 100.0605 ####[facility] [address] [place], [address] Stool lactoferrin detection by immunoassayOrdered By: Behzad Dorado on 09-17-2024 Lactoferrin IA Ql (Stl) [facility] White blood cell (WBC) count Ordered By: Behzad Dorado on 09-17-2024 WBC (Bld) [#/Vol] 5.6 10*3/uL 4.4-11.0 [facility] Urine Cultureon 09-15-2024 URC Normal [facility] Comment on above: Performed By: #### M 100.2200 ####[facility] [address] [place], [address] Basic Metabolic Profile (BMP )on 09-13-2024 BUN/CRE 20.6 RATIO High 10-20 [facility] Comment on above: Performed By: #### L 500.2500, L100.0600 ####[facility] [address] [place], [address] Calcium [Mass/Vol] 9.4 mg/dL Normal 7.6-11.0 [facility] Comment on above: Performed By: #### L 500.2500, L100.0600 ####[facility] [address] [place], [address] Chloride [Moles/Vol] 105 mmol/L Normal 98-108 [facility] Comment on above: Performed By: #### L 500.2500, L100.0600 ####[facility] [address] [place], [address] CO2 [Moles/Vol] 26.2 mmol/L Normal 21.0-32.0 [facility] Comment on above: Performed By: #### L 500.2500, L100.0600 ####[facility] [address] [place], [address] Creatinine [Mass/Vol] 1.09 mg/dL Normal 0.70-1.20 [facility] Comment on above: Performed By: #### L 500.2500, L100.0600 ####[facility] [address] [place], [address] ECRCL 29.30 ml/min Low 50-250 [facility] Comment on above: Performed By: #### L 500.2500, L100.0600 ####[facility] [address] [place], [address] GAP 9 Normal 5-15 [facility] Comment on above: Performed By: #### L 500.2500, L100.0600 ####[facility] [address] [place], [address] GFR/1.73 sq M.predicted among non-blacks MDRD (S/P/Bld) [Vol rate/Area] 49 mL/min/{1.73_m2} Low >60 [facility] Comment on above: Result Comment: mL/m in/1.73m2 CKD-EPI Creatinine Equation (2020) Performed By: #### L 500.2500, L100.0600 ####[facility] [address] [place], [address] Glucose [Mass/Vol] 98 mg/dL Normal 70-99 [facility] Comment on above: Performed By: #### L 500.2500, L100.0600 ####[facility] [address] [place], [address] Potassium [Moles/Vol] 4.7 mmol/L Normal 3.3-5.1 [facility] Comment on above: Performed By: #### L 500.2500, L100.0600 ####[facility] [address] [place], [address] Sodium [Moles/Vol] 140 mmol/L Normal 133-145 [facility] Comment on above: Performed By: #### L 500.2500, L100.0600 ####[facility] [address] [place], [address] Urea nitrogen [Mass/Vol] 23 mg/dL High 4-19 [facility] Comment on above: Performed By: #### L 500.2500, L100.0600 ####[facility] [address] [place], [address] Bilirubin Test strip Ql (U)O rdered By: Behzad Dorado on 09-13-2024 Bilirubin Ql (U) Negative Negative [facility] HH, Hemoglobin AND Hematocri ton 09-13-2024 Hematocrit (Bld) [Volume fraction] 35.8 % Low 37-47 [facility] Comment on above: Performed By: #### L 500.2500, L100.0600 ####[facility] [address] [place], [address] Hemoglobin (Bld) [Mass/Vol] 11.4 g/dL Low 12.0-15.0 [facility] Comment on above: Performed By: #### L 500.2500, L100.0600 ####[facility] [address] [place], [address] Ketones Test strip Ql (U)Ord ered By: Behzad Dorado on 09-13-2024 Ketones Ql (U) Negative Negative [facility] Microscopic analysis of urin e for red blood cells (RBC)Ordered By: Behzad Dorado on 09-13-2024 Microscopic analysis of urine for red blood cells (RBC) 0-5 SEEN /hpf 0-5 [facility] Mucus LM Ql (Urine sed)Order ed By: Behzad Dorado on 09-13-2024 Mucus Ql (Urine sed) 0 SEEN /hpf [facility] Nitrite Test strip Ql (U)Ord ered By: Behzad Dorado on 09-13-2024 Nitrite Ql (U) Positive High Negative [facility] Protein Test strip Ql (U)Ord ered By: Behzad Dorado on 09-13-2024 Protein Ql (U) 15 mg/dl High Negative [facility] Squamous epithelial cells de tection in urine sediment by light microscopyOrdered By: Behzad Dorado on 09-13-2024 Epithelial cells.squamous LM Ql (Urine sed) 0 SEEN /hpf 5-10 [facility] Urinalysis, Completeon 09-13 BACTERIA 2+ /hpf Normal None Seen [facility] Comment on above: Order Comment: JAMESON TER SPECIMEN Performed By: #### L 400.0001 ####[facility] [address] [place], [address] RBC 0-5 SEEN Normal 0-5 [facility] Comment on above: Order Comment: JAMESON TER SPECIMEN Performed By: #### L 400.0001 ####[facility] [address] [place], [address] WBC 25-50 SEEN Normal 0-5 [facility] Comment on above: Order Comment: JAMESON TER SPECIMEN Performed By: #### L 400.0001 ####[facility] [address] [place], [address] EPI,SQUAMOUS 0 SEEN Normal 5-10 [facility] Comment on above: Order Comment: JAMESON TER SPECIMEN Performed By: #### L 400.0001 ####[facility] [address] [place], [address] Mucus Ql (Urine sed) 0 SEEN Normal [facility] Comment on above: Order Comment: JAMESON TER SPECIMEN Performed By: #### L 400.0001 ####[facility] [address] [place], [address] Urine clarityOrdered By: Maday Dorado on 09-13-2024 Clarity (U) Sl. Cloudy Clear [facility] Urine color determinationOrd ered By: Behzad Dorado on 09-13-2024 Color (U) Yellow Yellow [facility] Urine cultureOrdered By: Maday Dorado on 09-13-2024 Bacteria identified Cx Nom (U) Escherichia coli Abnormal [facility] Urine glucose detectionOrder ed By: Behzad Garciaalexus on 09-13-2024 Glucose Ql (U) Normal mg/dl Normal [facility] Urine leukocyte esterase det ection by dipstickOrdered By: Behzad Estrada on 09-13-2024 Leukocyte esterase Test strip Ql (U) 500 /ul High Negative [facility] Urine pHOrdered By: Behzad Radha lieberman on 09-13-2024 pH (U) 6.0 [pH] 5.0 - 8.0 [facility] Urine sediment bacteria coun t by microscopy (number/high power field)Ordered By: Behzad Estrada on 09-13-2024 Bacteria LM.HPF (Urine sed) [#/Area] 2 /[HPF] None Seen [facility] Urine specific gravity measu rementOrdered By: Behzad Estrada on 09-13-2024 Specific gravity (U) [Rel density] 1.015 1.002-1.03 0 [facility] Urine urobilinogen measureme ntOrdered By: Behzad Dorado on 09-13-2024 Urobilinogen Ql (U) Normal mg/dl Normal [facility] White blood cell countOrdere d By: Behzad Estrada on 09-13-2024 White blood cell count 25-50 SEEN /hpf 0-5 [facility] Basic Metabolic Profile (BMP )on 09-06-2024 BUN/CRE 20.0 RATIO Normal 10-20 [facility] Comment on above: Performed By: #### L 500.2500, L1.06 ####[facility] [address] [facility] [place], [address] Calcium [Mass/Vol] 9.1 mg/dL Normal 7.6-11.0 [facility] Comment on above: Performed By: #### L 500.2500, L100.0600 ####[facility] [address] [place], [address] Chloride [Moles/Vol] 104 mmol/L Normal 98-108 [facility] Comment on above: Performed By: #### L 500.2500, L100.0600 ####[facility] [address] [place], [address] CO2 [Moles/Vol] 27.0 mmol/L Normal 21.0-32.0 [facility] Comment on above: Performed By: #### L 500.2500, L100.0600 ####[facility] [address] [place], [address] Creatinine [Mass/Vol] 0.89 mg/dL Normal 0.70-1.20 [facility] Comment on above: Performed By: #### L 500.2500, L100.0600 ####[facility] [address] [place], [address] ECRCL 35.89 ml/min Low 50-250 [facility] Comment on above: Performed By: #### L 500.2500, L100.0600 ####[facility] [address] [place], [address] GAP 9 Normal 5-15 [facility] Comment on above: Performed By: #### L 500.2500, L100.0600 ####[facility] [address] [place], [address] GFR/1.73 sq M.predicted among non-blacks MDRD (S/P/Bld) [Vol rate/Area] 63 mL/min/{1.73_m2} Normal >60 [facility] Comment on above: Result Comment: mL/m in/1.73m2 CKD-EPI Creatinine Equation (2020) Performed By: #### L 500.2500, L100.0600 ####[facility] [address] [place], [address] Glucose [Mass/Vol] 95 mg/dL Normal 70-99 [facility] Comment on above: Performed By: #### L 500.2500, L100.0600 ####[facility] [address] [place], [address] Potassium [Moles/Vol] 4.3 mmol/L Normal 3.3-5.1 [facility] Comment on above: Performed By: #### L 500.2500, L100.0600 ####[facility] [address] [place], [address] Sodium [Moles/Vol] 141 mmol/L Normal 133-145 [facility] Comment on above: Performed By: #### L 500.2500, L100.0600 ####[facility] [address] [place], [address] Urea nitrogen [Mass/Vol] 18 mg/dL Normal 4-19 [facility] Comment on above: Performed By: #### L 500.2500, L100.0600 ####[facility] [address] [place], [address] HH, Hemoglobin AND Hematocri ton 09-06-2024 Hematocrit (Bld) [Volume fraction] 34.9 % Low 37-47 [facility] Comment on above: Performed By: #### L 500.2500, L100.0600 ####[facility] [address] [place], [address] Hemoglobin (Bld) [Mass/Vol] 11.3 g/dL Low 12.0-15.0 [facility] Comment on above: Performed By: #### L 500.2500, L100.0600 ####[facility] [address] [place], [address] Basic Metabolic Profile (BMP )on 08-30-2024 BUN/CRE 20.3 RATIO High 10-20 [facility] Comment on above: Performed By: #### L 100.0500, L500.2500 ####[facility] [address] [place], [address] Calcium [Mass/Vol] 9.6 mg/dL Normal 7.6-11.0 [facility] Comment on above: Performed By: #### L 100.0500, L500.2500 ####[facility] [address] [place], [address] Chloride [Moles/Vol] 106 mmol/L Normal 98-108 [facility] Comment on above: Performed By: #### L 100.0500, L500.2500 ####[facility] [address] [place], [address] CO2 [Moles/Vol] 25.3 mmol/L Normal 21.0-32.0 [facility] Comment on above: Performed By: #### L 100.0500, L500.2500 ####[facility] [address] [place], [address] Creatinine [Mass/Vol] 0.86 mg/dL Normal 0.70-1.20 [facility] Comment on above: Performed By: #### L 100.0500, L500.2500 ####[facility] [address] [place], [address] ECRCL 37.14 ml/min Low 50-250 [facility] Comment on above: Performed By: #### L 100.0500, L500.2500 ####[facility] [address] [place], [address] GAP 8 Normal 5-15 [facility] Comment on above: Performed By: #### L 100.0500, L500.2500 ####[facility] [address] [place], [address] GFR/1.73 sq M.predicted among non-blacks MDRD (S/P/Bld) [Vol rate/Area] 66 mL/min/{1.73_m2} Normal >60 [facility] Comment on above: Result Comment: mL/m in/1.73m2 CKD-EPI Creatinine Equation (2020) Performed By: #### L 100.0500, L500.2500 ####[facility] [address] [place], [address] Glucose [Mass/Vol] 107 mg/dL High 70-99 [facility] Comment on above: Performed By: #### L 100.0500, L500.2500 ####[facility] [address] [place], [address] Potassium [Moles/Vol] 4.2 mmol/L Normal 3.3-5.1 [facility] Comment on above: Performed By: #### L 100.0500, L500.2500 ####[facility] [address] [place], [address] Sodium [Moles/Vol] 139 mmol/L Normal 133-145 [facility] Comment on above: Performed By: #### L 100.0500, L500.2500 ####[facility] [address] [place], [address] Urea nitrogen [Mass/Vol] 17 mg/dL Normal 4-19 [facility] Comment on above: Performed By: #### L 100.0500, L500.2500 ####[facility] [address] [place], [address] CBC-Complete Blood Cnt No Di ffon 08-30-2024 Erythrocyte distribution width (RBC) [Ratio] 12.5 % Normal 11.6-14.6 [facility] Comment on above: Performed By: #### L 100.0500, L500.2500 ####[facility] [address] [place], [address] Hematocrit (Bld) [Volume fraction] 39.6 % Normal 37-47 [facility] Comment on above: Performed By: #### L 100.0500, L500.2500 ####[facility] [address] [place], [address] Hemoglobin (Bld) [Mass/Vol] 12.7 g/dL Normal 12.0-15.0 [facility] Comment on above: Performed By: #### L 100.0500, L500.2500 ####[facility] [address] [place], [address] MCH (RBC) [Entitic mass] 31.4 pg Normal 27.0-32.0 [facility] Comment on above: Performed By: #### L 100.0500, L500.2500 ####[facility] [address] [place], [address] MCHC (RBC) [Mass/Vol] 32.1 g/dL Normal 32-36 [facility] Comment on above: Performed By: #### L 100.0500, L500.2500 ####[facility] [address] [place], [address] MCV (RBC) [Entitic vol] 97.8 fL Normal 81-99 [facility] Comment on above: Performed By: #### L 100.0500, L500.2500 ####[facility] [address] [place], [address] Platelet mean volume (Bld) [Entitic vol] 8.7 fL Normal 6.2-12.0 [facility] Comment on above: Performed By: #### L 100.0500, L500.2500 ####[facility] [address] [place], [address] Platelets (Bld) [#/Vol] 364 10*3/uL Normal 150-450 [facility] Comment on above: Performed By: #### L 100.0500, L500.2500 ####[facility] [address] [place], [address] RBC (Bld) [#/Vol] 4.05 10*6/uL Low 4.2-5.4 [facility] Comment on above: Performed By: #### L 100.0500, L500.2500 ####[facility] [address] [place], [address] RDW SD 45.1 fl High 35.1-43.9 [facility] Comment on above: Performed By: #### L 100.0500, L500.2500 ####[facility] [address] [place], [address] WBC (Bld) [#/Vol] 6.6 10*3/uL Normal 4.4-11.0 [facility] Comment on above: Performed By: #### L 100.0500, L500.2500 ####[facility] [address] [place], [address] [facility] BHARTIBEHZAD Lugo ([id number]) 1940 F Date Time Provider Department 08/30/24 TASHA DEUTSCH [facility] During your visit today, we recorded the following information about you: Tasha Deutsch APRN.[facility] 08/30/2024 12:45 PM Signed Patient was admitted August 22, 2024 and discharged on August 23, 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 Patient has a past history of chronic renal failure stage IV but recent labs show GFR of 74?, History of A-fib, osteoarthritis, hypertension who presents to the emergency room [facility] August 16 with complaints of confusion. In [...] Transferred to the acute inpatient rehab at [facility] August 22. 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 Normal [facility] Basic Metabolic Profile (BMP )on 08-27-2024 BUN/CRE 22.9 RATIO High 10- [facility] Comment on above: Performed By: #### L 500.2500, L100.0600 ####[facility] [address] [place], [address] Calcium [Mass/Vol] 9.5 mg/dL Normal 7.6-11.0 [facility] Comment on above: Performed By: #### L 500.2500, L100.0600 ####[facility] [address] [place], [address] Chloride [Moles/Vol] 107 mmol/L Normal 98-108 [facility] Comment on above: Performed By: #### L 500.2500, L100.0600 ####[facility] [address] [place], [address] CO2 [Moles/Vol] 22.6 mmol/L Normal 21.0-32.0 [facility] Comment on above: Performed By: #### L 500.2500, L100.0600 ####[facility] [address] [place], [address] Creatinine [Mass/Vol] 0.90 mg/dL Normal 0.70-1.20 [facility] Comment on above: Performed By: #### L 500.2500, L100.0600 ####[facility] [address] [place], [address] ECRCL 38.86 ml/min Low 50-250 [facility] Comment on above: Performed By: #### L 500.2500, L100.0600 ####[facility] [address] [place], [address] GAP 12 Normal 5-15 [facility] Comment on above: Performed By: #### L 500.2500, L100.0600 ####[facility] [address] [place], [address] GFR/1.73 sq M.predicted among non-blacks MDRD (S/P/Bld) [Vol rate/Area] 63 mL/min/{1.73_m2} Normal >60 [facility] Comment on above: Result Comment: mL/m in/1.73m2 CKD-EPI Creatinine Equation (2020) Performed By: #### L 500.2500, L100.0600 ####[facility] [address] [place], [address] Glucose [Mass/Vol] 109 mg/dL High 70-99 [facility] Comment on above: Performed By: #### L 500.2500, L100.0600 ####[facility] [address] [place], [address] Potassium [Moles/Vol] 4.4 mmol/L Normal 3.3-5.1 [facility] Comment on above: Performed By: #### L 500.2500, L100.0600 ####[facility] [address] [place], [address] Sodium [Moles/Vol] 141 mmol/L Normal 133-145 [facility] Comment on above: Performed By: #### L 500.2500, L100.0600 ####[facility] [address] [place], [address] Urea nitrogen [Mass/Vol] 21 mg/dL High 4-19 [facility] Comment on above: Performed By: #### L 500.2500, L100.0600 ####[facility] [address] [place], [address] HH, Hemoglobin AND Hematocri ton 08-27-2024 Hematocrit (Bld) [Volume fraction] 40.8 % Normal 37-47 [facility] Comment on above: Performed By: #### L 500.2500, L100.0600 ####[facility] [address] [place], [address] Hemoglobin (Bld) [Mass/Vol] 13.3 g/dL Normal 12.0-15.0 [facility] Comment on above: Performed By: #### L 500.2500, L100.0600 ####[facility] [address] [place], [address] Stool Occult Blood iFOBon STOB Positive Normal [facility] Comment on above: Performed By: #### M 100.7900 ####[facility] [address] [place], [address] Stool gastrointestinal hemog lobin detection by immunologic methodOrdered By: Behzad Garciaalexus on 08-27-2024 Lower GI hemoglobin IA Ql (Stl) Positive Abnormal [facility] Bilirubin, totalOrdered By: Behzad Garciaalexus on 08-23-2024 Bilirubin [Mass/Vol] 0.23 mg/dL 0.00-1.30 [facility] CBC-Complete Blood Cnt No Di ffon 08-23-2024 Erythrocyte distribution width (RBC) [Ratio] 12.8 % Normal 11.6-14.6 [facility] Comment on above: Performed By: #### L 100.0500, L501.5200, L501.2300, L500.4050 ####[facility] [address] [place], [address] Hematocrit (Bld) [Volume fraction] 34.9 % Low 37-47 [facility] Comment on above: Performed By: #### L 100.0500, L501.5200, L501.2300, L500.4050 ####[facility] [address] [place], [address] Hemoglobin (Bld) [Mass/Vol] 10.9 g/dL Low 12.0-15.0 [facility] Comment on above: Performed By: #### L 100.0500, L501.5200, L501.2300, L500.4050 ####[facility] [address] [place], [address] MCH (RBC) [Entitic mass] 30.9 pg Normal 27.0-32.0 [facility] Comment on above: Performed By: #### L 100.0500, L501.5200, L501.2300, L500.4050 ####[facility] [address] [place], [address] MCHC (RBC) [Mass/Vol] 31.2 g/dL Low 32-36 [facility] Comment on above: Performed By: #### L 100.0500, L501.5200, L501.2300, L500.4050 ####[facility] [address] [place], [address] MCV (RBC) [Entitic vol] 98.9 fL Normal 81-99 [facility] Comment on above: Performed By: #### L 100.0500, L501.5200, L501.2300, L500.4050 ####[facility] [address] [place], [address] Platelet mean volume (Bld) [Entitic vol] 9.5 fL Normal 6.2-12.0 [facility] Comment on above: Performed By: #### L 100.0500, L501.5200, L501.2300, L500.4050 ####[facility] [address] [place], [address] Platelets (Bld) [#/Vol] 246 10*3/uL Normal 150-450 [facility] Comment on above: Performed By: #### L 100.0500, L501.5200, L501.2300, L500.4050 ####[facility] [address] [place], [address] RBC (Bld) [#/Vol] 3.53 10*6/uL Low 4.2-5.4 [facility] Comment on above: Performed By: #### L 100.0500, L501.5200, L501.2300, L500.4050 ####[facility] [address] [place], [address] RDW SD 46.1 fl High 35.1-43.9 [facility] Comment on above: Performed By: #### L 100.0500, L501.5200, L501.2300, L500.4050 ####[facility] [address] [place], [address] WBC (Bld) [#/Vol] 6.0 10*3/uL Normal 4.4-11.0 [facility] Comment on above: Performed By: #### L 100.0500, L501.5200, L501.2300, L500.4050 ####[facility] [address] [place], [address] [facility] TYLERBEHZAD JONES ([id number]) 1940 F Date Time Provider Department 08/23/24 TASHA DEUTSCH [facility] During your visit today, we recorded the following information about you: Tasha Deutsch, EAN.[facility] 08/23/2024 12:15 PM Signed Patient was discharged from [facility] on August 22, 2024 for acute ischemic [...] Rash MACROBID (NITROFURANTOIN MONOHYD/*09/25/2018 2 - Rash NUABTJU-UPF-XDG REDUCTASE INHIBIT*10/06/2014 5 - Intolerance Date Reviewed: 04/26/2024 Reviewed by: Tasha Deutsch APRN.DIRECTOR HR COMMUNICATIONS - Fully Assessed Primary Visit Diagnosis:Paroxysmal atrial [...] - FLAXS (more content not included)... Normal [facility] Metabolic Prof chayito 08-23-2024 Albumin [Mass/Vol] 3.4 g/dL Normal 3.4-4.8 [facility] Comment on above: Performed By: #### L 100.0500, L501.5200, L501.2300, L500.4050 ####[facility] [address] [place], [address] Albumin/Globulin [Mass ratio] 1.3 {ratio} Normal 0.9-2.4 [facility] Comment on above: Performed By: #### L 100.0500, L501.5200, L501.2300, L500.4050 ####[facility] [address] [place], [address] ALK PHOS 74 U/L Normal 35-104 [facility] Comment on above: Performed By: #### L 100.0500, L501.5200, L501.2300, L500.4050 ####[facility] [address] [place], [address] ALT [Catalytic activity/Vol] 18 U/L Normal <=34 [facility] Comment on above: Performed By: #### L 100.0500, L501.5200, L501.2300, L500.4050 ####[facility] [address] [place], [address] AST [Catalytic activity/Vol] 28 U/L Normal <=31 [facility] Comment on above: Performed By: #### L 100.0500, L501.5200, L501.2300, L500.4050 ####[facility] [address] [place], [address] Bilirubin [Mass/Vol] 0.23 mg/dL Normal 0.00-1.30 [facility] Comment on above: Performed By: #### L 100.0500, L501.5200, L501.2300, L500.4050 ####[facility] [address] [place], [address] BUN/CRE 29.6 RATIO High 10-20 [facility] Comment on above: Performed By: #### L 100.0500, L501.5200, L501.2300, L500.4050 ####[facility] [address] [place], [address] Calcium [Mass/Vol] 9.3 mg/dL Normal 7.6-11.0 [facility] Comment on above: Performed By: #### L 100.0500, L501.5200, L501.2300, L500.4050 ####[facility] [address] [place], [address] Chloride [Moles/Vol] 108 mmol/L Normal 98-108 [facility] Comment on above: Performed By: #### L 100.0500, L501.5200, L501.2300, L500.4050 ####[facility] [address] [place], [address] CO2 [Moles/Vol] 22.6 mmol/L Normal 21.0-32.0 [facility] Comment on above: Performed By: #### L 100.0500, L501.5200, L501.2300, L500.4050 ####[facility] [address] [place], [address] Creatinine [Mass/Vol] 0.78 mg/dL Normal 0.70-1.20 [facility] Comment on above: Performed By: #### L 100.0500, L501.5200, L501.2300, L500.4050 ####[facility] [address] [place], [address] ECRCL 39.92 ml/min Low 50-250 [facility] Comment on above: Performed By: #### L 100.0500, L501.5200, L501.2300, L500.4050 ####[facility] [address] [place], [address] GAP 10 Normal 5-15 [facility] Comment on above: Performed By: #### L 100.0500, L501.5200, L501.2300, L500.4050 ####[facility] [address] [place], [address] GFR/1.73 sq M.predicted among non-blacks MDRD (S/P/Bld) [Vol rate/Area] 74 mL/min/{1.73_m2} Normal >60 [facility] Comment on above: Result Comment: mL/m in/1.73m2 CKD-EPI Creatinine Equation (2020) Performed By: #### L 100.0500, L501.5200, L501.2300, L500.4050 ####[facility] [address] [place], [address] Globulin (S) [Mass/Vol] 2.6 g/dL Normal 2.2-4.2 [facility] Comment on above: Performed By: #### L 100.0500, L501.5200, L501.2300, L500.4050 ####[facility] [address] [place], [address] Glucose [Mass/Vol] 101 mg/dL High 70-99 [facility] Comment on above: Performed By: #### L 100.0500, L501.5200, L501.2300, L500.4050 ####[facility] [address] [place], [address] Potassium [Moles/Vol] 4.1 mmol/L Normal 3.3-5.1 [facility] Comment on above: Performed By: #### L 100.0500, L501.5200, L501.2300, L500.4050 ####[facility] [address] [place], [address] Sodium [Moles/Vol] 141 mmol/L Normal 133-145 [facility] Comment on above: Performed By: #### L 100.0500, L501.5200, L501.2300, L500.4050 ####[facility] [address] [place], [address] T PROT 6.0 g/dL Normal 5.9-8.4 [facility] Comment on above: Performed By: #### L 100.0500, L501.5200, L501.2300, L500.4050 ####[facility] [address] [place], [address] Urea nitrogen [Mass/Vol] 23 mg/dL High 4-19 [facility] Comment on above: Performed By: #### L 100.0500, L501.5200, L501.2300, L500.4050 ####[facility] [address] [place], [address] Culture, Blood (WB)on 2024 CUB Blood cultures x2, f rom two different sites No growth in 5 days. Normal [facility] Comment on above: Performed By: #### M 200.1000 ####[facility] [address] [place], [address] Laboratory - Chemistry and C hemistry - challengeOrdered By: Behzad Dorado on 08-23-2024 AST [Catalytic activity/Vol] 28 U/L <32 [facility] Magnesiumon 08-23-2024 Magnesium [Mass/Vol] 2.1 mg/dL Normal 1.5-2.2 [facility] Comment on above: Performed By: #### L 100.0500, L501.5200, L501.2300, L500.4050 ####[facility] [address] [place], [address] Magnesium measurement (mass/ volume)Ordered By: Behzad Dorado on 08-23-2024 Magnesium (Unsp spec) [Mass/Vol] 2.1 mg/dL 1.5-2.2 [facility] Phosphoruson 08-23-2024 Phosphate [Mass/Vol] 3.9 mg/dL Normal 2.7-4.5 [facility] Comment on above: Performed By: #### L 100.0500, L501.5200, L501.2300, L500.4050 ####[facility] [address] [place], [place], [address] Serum globulin measurementOr dered By: Behzad Estrada on 08-23-2024 Globulin (S) [Mass/Vol] 2.6 g/dL 2.2-4.2 [facility] Serum or plasma alanine tierney otransferase (ALT) measurementOrdered By: Behzad Dorado on 08-23-2024 ALT [Catalytic activity/Vol] 18 U/L <35 [facility] Serum or plasma albumin camilo urement (mass/volume)Ordered By: Behzad Estrada on 08-23-2024 Albumin [Mass/Vol] 3.4 g/dL 3.4-4.8 [facility] Serum or plasma albumin/glob ulin mass ratioOrdered By: Behzad [facility] on 08-23-2024 Albumin/Globulin [Mass ratio] 1.3 {ratio} 0.9-2.4 [facility] Serum or plasma alkaline jordan sphatase measurementOrdered By: Behzad Estrada on 08-23-2024 ALP [Catalytic activity/Vol] 74 U/L 35-104 [facility] Total proteinOrdered By: Maday Dorado on 08-23-2024 Protein [Mass/Vol] 6.0 g/dL 5.9-8.4 [facility] Vitamin D,25 Hydroxyon 08-23 Vitamin D 25-OH 35.6 ng/mL Normal 30-100 [facility] Comment on above: Result Comment: Tati min D StatusDeficiency: <20 ng/mL (50nmol/L)Insufficiency: 20-30 ng/mL (50-75 nmol/L)Sufficiency: 30-100 ng/mL (75-250 nmol/L)Toxicity: >100 ng/mL (>250 nmol/L) Performed By: #### L 506.1001 ####[facility] [address] [place], [address] Anion gap in Serum or Plasma Ordered By: Mara Mar on 08-22-2024 Anion gap [Moles/Vol] 9 mmol/L 5-15 [facility] BUN/creatinine ratioOrdered By: Mara Mar on 08-22-2024 Urea nitrogen/Creatinine [Mass ratio] 39.3 mg/mg High - [facility] Basic Metabolic Profile (BMP )on 08-22-2024 BUN/CRE 39.3 RATIO High - [facility] Comment on above: Performed By: #### L 100.0500, L500.2500 ####[facility] [id number] [place], [address] Calcium [Mass/Vol] 9.1 mg/dL Normal 7.6-11.0 [facility] Comment on above: Performed By: #### L 100.0500, L500.2500 ####[facility] [id number] [place], [address] Chloride [Moles/Vol] 111 mmol/L High 98-108 [facility] Comment on above: Performed By: #### L 100.0500, L500.2500 ####[facility] [id number] [place], [address] CO2 [Moles/Vol] 22.3 mmol/L Normal 21.0-32.0 [facility] Comment on above: Performed By: #### L 100.0500, L500.2500 ####[facility] [id number] [place], [address] Creatinine [Mass/Vol] 0.78 mg/dL Normal 0.70-1.20 [facility] [facility] Comment on above: Performed By: #### L 100.0500, L500.2500 ####[facility] [address] [place], [address] ECRCL 39.92 ml/min Low 50-250 [facility] Comment on above: Performed By: #### L 100.0500, L500.2500 ####[facility] [address] [place], [address] GAP 9 Normal 5-15 [facility] Comment on above: Performed By: #### L 100.0500, L500.2500 ####[facility] [address] [place], [address] GFR/1.73 sq M.predicted among non-blacks MDRD (S/P/Bld) [Vol rate/Area] 74 mL/min/{1.73_m2} Normal >60 [facility] Comment on above: Result Comment: mL/m in/1.73m2 CKD-EPI Creatinine Equation (2020) Performed By: #### L 100.0500, L500.2500 ####[facility] [address] [place], [address] Glucose [Mass/Vol] 96 mg/dL Normal 70-99 [facility] Comment on above: Performed By: #### L 100.0500, L500.2500 ####[facility] [address] [place], [address] Potassium [Moles/Vol] 4.1 mmol/L Normal 3.3-5.1 [facility] Comment on above: Performed By: #### L 100.0500, L500.2500 ####[facility] [address] [place], [address] Sodium [Moles/Vol] 142 mmol/L Normal 133-145 [facility] Comment on above: Performed By: #### L 100.0500, L500.2500 ####[facility] [address] [place], [address] Urea nitrogen [Mass/Vol] 31 mg/dL High 4-19 [facility] Comment on above: Performed By: #### L 100.0500, L500.2500 ####[facility] [address] [place], [address] CBC-Complete Blood Cnt No Di ffon 08-22-2024 Erythrocyte distribution width (RBC) [Ratio] 13.1 % Normal 11.6-14.6 [facility] Comment on above: Performed By: #### L 100.0500, L500.2500 ####[facility] [address] [place], [address] Hematocrit (Bld) [Volume fraction] 34.7 % Low 37-47 [facility] Comment on above: Performed By: #### L 100.0500, L500.2500 ####[facility] [address] [place], [address] Hemoglobin (Bld) [Mass/Vol] 11.0 g/dL Low 12.0-15.0 [facility] Comment on above: Performed By: #### L 100.0500, L500.2500 ####[facility] [address] [place], [address] MCH (RBC) [Entitic mass] 31.3 pg Normal 27.0-32.0 [facility] Comment on above: Performed By: #### L 100.0500, L500.2500 ####[facility] [address] [place], [address] MCHC (RBC) [Mass/Vol] 31.7 g/dL Low 32-36 [facility] Comment on above: Performed By: #### L 100.0500, L500.2500 ####[facility] [address] [place], [address] MCV (RBC) [Entitic vol] 98.6 fL Normal 81-99 [facility] Comment on above: Performed By: #### L 100.0500, L500.2500 ####[facility] [address] [place], [address] Platelet mean volume (Bld) [Entitic vol] 9.6 fL Normal 6.2-12.0 [facility] Comment on above: Performed By: #### L 100.0500, L500.2500 ####[facility] [address] [place], [address] Platelets (Bld) [#/Vol] 245 10*3/uL Normal 150-450 [facility] Comment on above: Performed By: #### L 100.0500, L500.2500 ####[facility] [address] [place], [address] RBC (Bld) [#/Vol] 3.52 10*6/uL Low 4.2-5.4 [facility] Comment on above: Performed By: #### L 100.0500, L500.2500 ####[facility] [address] [place], [address] RDW SD 47.0 fl High 35.1-43.9 [facility] Comment on above: Performed By: #### L 100.0500, L500.2500 ####[facility] [address] [place], [address] WBC (Bld) [#/Vol] 5.7 10*3/uL Normal 4.4-11.0 [facility] Comment on above: Performed By: #### L 100.0500, L500.2500 ####[facility] [address] [place], [address] Carbon dioxide, total [Moles /volume] in Central venous bloodOrdered By: Mara Mar on 08-22-2024 CO2 [Moles/Vol] 22.3 mmol/L 21.0-32.0 [facility] Chloride assayOrdered By: Akosua Mar on 08-22-2024 Chloride [Moles/Vol] 111 mmol/L High 98-108 [facility] Erythrocyte distribution wid th ratioOrdered By: Mara Mar on 08-22-2024 Erythrocyte distribution width (RBC) [Ratio] 13.1 % 11.6-14.6 [facility] Erythrocyte distribution wid th standard deviationOrdered By: Mara Mar on 08-22-2024 Erythrocyte distribution width (RBC) [Ratio] 47.0 fl High 35.1-43.9 [facility] Glomerular filtration rate ( GFR) estimation/1.73 sq m using serum, plasma, or whole bOrdered By: Mara Mar on 08-22-2024 GFR/1.73 sq M.predicted among non-blacks MDRD (S/P/Bld) [Vol rate/Area] 74 mL/min/{1.73_m2} >60 [facility] Comment on above: mL/min/1.73m2 CKD-EP I Creatinine Equation (2020) Hematocrit Auto (Bld) [Volum e fraction]Ordered By: Mara Mar on 08-22-2024 Hematocrit (Bld) [Volume fraction] 34.7 % Low 37-47 [facility] Hemoglobin measurementOrdere d By: Mara Mar on 08-22-2024 Hemoglobin (Bld) [Mass/Vol] 11.0 g/dL Low 12.0-15.0 [facility] MCV (mean corpuscular volume ) determinationOrdered By: Mara Mar on 08-22-2024 MCV (RBC) [Entitic vol] 98.6 fL 81-99 [facility] Mean corpuscular hemoglobin (MCH) determinationOrdered By: Mara Mar on 08-22-2024 MCH (RBC) [Entitic mass] 31.3 pg 27.0-32.0 [facility] Mean corpuscular hemoglobin concentration (MCHC) determinationOrdered By: Mara Mar on 08-22-2024 MCHC (RBC) [Mass/Vol] 31.7 g/dL Low 32-36 [facility] Mean platelet volume determi nationOrdered By: Mara Mar on 08-22-2024 Platelet mean volume (Bld) [Entitic vol] 9.6 fL 6.2-12.0 [facility] Platelet countOrdered By: Akosua Mar on 08-22-2024 Platelets (Bld) [#/Vol] 245 10*3/uL 150-450 [facility] Potassium measurement (mass/ volume)Ordered By: Mara Mar on 08-22-2024 Potassium (Unsp spec) [Mass/Vol] 4.1 mmol/L 3.3-5.1 [facility] RBC Auto (Bld) [#/Vol]Ordere d By: Mara Mar on 08-22-2024 RBC (Bld) [#/Vol] 3.52 10*6/uL Low 4.2-5.4 [facility] Serum creatinine measurement (mass/volume)Ordered By: Mara Mar on 08-22-2024 Creatinine [Mass/Vol] 0.78 mg/dL 0.70-1.20 [facility] Serum glucose measurement (m ass/volume)Ordered By: Mara Mar on 08-22-2024 Glucose [Mass/Vol] 96 mg/dL 70-99 [facility] Serum or plasma calcium camilo urement (mass/volume)Ordered By: Mara Mar on 08-22-2024 Calcium [Mass/Vol] 9.1 mg/dL 7.6-11.0 [facility] Serum or plasma urea nitroge n measurement (mass/volume)Ordered By: Mara Mar on 08-22-2024 Urea nitrogen [Mass/Vol] 31 mg/dL High 4-19 [facility] Sodium levelOrdered By: Eliana Mar on 08-22-2024 Sodium [Moles/Vol] 142 mmol/L 133-145 [facility] White blood cell (WBC) count Ordered By: Mara Mar on 08-22-2024 WBC (Bld) [#/Vol] 5.7 10*3/uL 4.4-11.0 [facility] Electrocardiogram reportOrde red By: Swapnil Balderrama on 08-20-2024 EKG study [facility] Services [address] [place] [address] 12 Lead EKG 08/18/24 1103 MR#: [id number] Acct: [id number] Name: BEHZAD HAY Rep #:[id number] : 1940 84 From: Swapnil granados MD Attending Dr: Dr. Mara Mar, DO S tatus: ADM IN Ordering Dr: Fawad Cordon DO Date: 0 08/18/24 Location: [facility] Sex: F C Admitted: 08/18/24 Test Reason : Blood Pressure : */* mmHG Vent. Rate : 72 BPM Atrial Rate : 72 BPM P-R Int : 152 ms QRS Dur : 82 ms QT Int : 410 ms P-R-T Axes : 28 -2 5 degrees QTcB Int : 448 ms Normal sinus rhythm Normal ECG Confirmed by Swapnil Balderrama ([id number]), scientific publications editor LOVELY RAMSEY ([id number]) on 08/20/2024 12:21:07 PM Referred By: Confirmed By: Swapnil Balderrama 08/20/24 1221 Date _ Swapnil Balderrama MD CC: GARFIELD Deutsch; Dr. Fawad Cordon DO; Dr. Mara Mar DO ~ Signed [facility] Other Phone: Urine Cultureon 08-20-2024 URC Normal [facility] Comment on above: Performed By: #### M 100.2200 ####[facility] [address] [place], [address] Absolute lymphocyte countOrd ered By: Mara Mar on 08-19-2024 Lymphocytes Auto (Unsp spec) [#/Vol] 1.07 10*3/uL 0.83-4.51 [facility] Absolute neutrophil countOrd ered By: Mara Mar on 08-19-2024 Neutrophils (Bld) [#/Vol] 4.0 10*3/uL 2.0-7.7 [facility] Automated lymphocyte count a s percentage of total leukocytesOrdered By: Mara Mar on 08-19-2024 Lymphocytes/100 WBC Auto (Unsp spec) 18.3 % Low 19-41 [facility] Basophil percentageOrdered B y: Mara Mar on 08-19-2024 Basophils/100 WBC (Bld) 1.2 % High 0-1 [facility] Bilirubin, totalOrdered By: Mara Mar on 08-19-2024 Bilirubin [Mass/Vol] 0.36 mg/dL 0.00-1.30 [facility] CBC W/Diff, Automatedon 05-0 -2024 Absolute Lymph 1.07 X10 3/uL Normal 0.83-4.51 [facility] Comment on above: Performed By: #### L 501.9520, L501.2300, L100.0100, L500.4050, L500.4100, L501.5200 ####[facility] [address] [place], [address] Absolute Neut 4.0 X10 3/uL Normal 2.0-7.7 [facility] Comment on above: Performed By: #### L 501.9520, L501.2300, L100.0100, L500.4050, L500.4100, L501.5200 ####[facility] [address] [place], [address] Basophils/100 WBC (Bld) 1.2 % High 0-1 [facility] Comment on above: Performed By: #### L 501.9520, L501.2300, L100.0100, L500.4050, L500.4100, L501.5200 ####[facility] [address] [place], [address] Eosinophils/100 WBC (Bld) 3.9 % Normal 0-5 [facility] Comment on above: Performed By: #### L 501.9520, L501.2300, L100.0100, L500.4050, L500.4100, L501.5200 ####[facility] [address] [place], [address] Erythrocyte distribution width (RBC) [Ratio] 13.1 % Normal 11.6-14.6 [facility] Comment on above: Performed By: #### L 501.9520, L501.2300, L100.0100, L500.4050, L500.4100, L501.5200 ####[facility] [address] [place], [address] Hematocrit (Bld) [Volume fraction] 36.9 % Low 37-47 [facility] Comment on above: Performed By: #### L 501.9520, L501.2300, L100.0100, L500.4050, L500.4100, L501.5200 ####[facility] [address] [place], [address] Hemoglobin (Bld) [Mass/Vol] 11.8 g/dL Low 12.0-15.0 [facility] Comment on above: Performed By: #### L 501.9520, L501.2300, L100.0100, L500.4050, L500.4100, L501.5200 ####[facility] [address] [place], [address] IG% 0.300 Normal 0.0-0.9 [facility] Comment on above: Result Comment: IG% - Immature Granulocytes (promyelocytes, myelocytes andmetamyelocytes) > 1% indicates that a LEFT SHIFT is Present. Performed By: #### L 501.9520, L501.2300, L100.0100, L500.4050, L500.4100, L501.5200 ####[facility] [address] [place], [address] Lymphocytes/100 WBC (Bld) 18.3 % Low 19-41 [facility] Comment on above: Performed By: #### L 501.9520, L501.2300, L100.0100, L500.4050, L500.4100, L501.5200 ####[facility] [address] [place], [address] MCH (RBC) [Entitic mass] 31.0 pg Normal 27.0-32.0 [facility] Comment on above: Performed By: #### L 501.9520, L501.2300, L100.0100, L500.4050, L500.4100, L501.5200 ####[facility] [address] [place], [address] MCHC (RBC) [Mass/Vol] 32.0 g/dL Normal 32-36 [facility] Comment on above: Performed By: #### L 501.9520, L501.2300, L100.0100, L500.4050, L500.4100, L501.5200 ####[facility] [address] [place], [address] MCV (RBC) [Entitic vol] 96.9 fL Normal 81-99 [facility] Comment on above: Performed By: #### L 501.9520, L501.2300, L100.0100, L500.4050, L500.4100, L501.5200 ####[facility] [address] [place], [address] Monocytes/100 WBC (Bld) 8.5 % Normal 0-10 [facility] Comment on above: Performed By: #### L 501.9520, L501.2300, L100.0100, L500.4050, L500.4100, L501.5200 ####[facility] [address] [place], [address] Neutrophils/100 WBC (Bld) 67.8 % Normal 47-70 [facility] Comment on above: Performed By: #### L 501.9520, L501.2300, L100.0100, L500.4050, L500.4100, L501.5200 ####[facility] [address] [place], [address] Nucleated RBC (Bld) [#/Vol] 0 10*3/uL Normal 0-5 [facility] Comment on above: Performed By: #### L 501.9520, L501.2300, L100.0100, L500.4050, L500.4100, L501.5200 ####[facility] [address] [place], [address] Platelet mean volume (Bld) [Entitic vol] 8.9 fL Normal 6.2-12.0 [facility] Comment on above: Performed By: #### L 501.9520, L501.2300, L100.0100, L500.4050, L500.4100, L501.5200 ####[facility] [address] [place], [address] Platelets (Bld) [#/Vol] 237 10*3/uL Normal 150-450 [facility] Comment on above: Performed By: #### L 501.9520, L501.2300, L100.0100, L500.4050, L500.4100, L501.5200 ####[facility] [address] [place], [address] RBC (Bld) [#/Vol] 3.81 10*6/uL Low 4.2-5.4 [facility] Comment on above: Performed By: #### L 501.9520, L501.2300, L100.0100, L500.4050, L500.4100, L501.5200 ####[facility] [address] [place], [address] RDW SD 46.8 fl High 35.1-43.9 [facility] Comment on above: Performed By: #### L 501.9520, L501.2300, L100.0100, L500.4050, L500.4100, L501.5200 ####[facility] [address] [place], [address] WBC (Bld) [#/Vol] 5.9 10*3/uL Normal 4.4-11.0 [facility] Comment on above: Performed By: #### L 501.9520, L501.2300, L100.0100, L500.4050, L500.4100, L501.5200 ####[facility] [address] [place], [address] Calculated very low density lipoprotein (VLDL) cholesterol measurementOrdered By: Mara Mar on 08-19-2024 Calculated very low density lipoprotein (VLDL) cholesterol measurement 15 mg/dL 5-40 [facility] Comprehensive Metabolic Prof ilon 08-19-2024 Albumin [Mass/Vol] 3.7 g/dL Normal 3.4-4.8 [facility] Comment on above: Order Comment: Comme nts: NPO at [place] prior to lipid panel Performed By: #### L 501.9520, L501.2300, L100.0100, L500.4050, L500.4100, L501.5200 ####[facility] [address] [place], [address] Albumin/Globulin [Mass ratio] 1.4 {ratio} Normal 0.9-2.4 [facility] Comment on above: Order Comment: Comme nts: NPO at [place] prior to lipid panel Performed By: #### L 501.9520, L501.2300, L100.0100, L500.4050, L500.4100, L501.5200 ####[facility] [address] [place], [address] ALK PHOS 70 U/L Normal 35-104 [facility] Comment on above: Order Comment: Comme nts: NPO at [place] prior to lipid panel Performed By: #### L 501.9520, L501.2300, L100.0100, L500.4050, L500.4100, L501.5200 ####[facility] [address] [place], [address] ALT [Catalytic activity/Vol] 18 U/L Normal <=34 [facility] Comment on above: Order Comment: Comme nts: NPO at [place] prior to lipid panel Performed By: #### L 501.9520, L501.2300, L100.0100, L500.4050, L500.4100, L501.5200 ####[facility] [address] [place], [address] AST [Catalytic activity/Vol] 33 U/L High <=31 [facility] Comment on above: Order Comment: Comme nts: NPO at [place] prior to lipid panel Performed By: #### L 501.9520, L501.2300, L100.0100, L500.4050, L500.4100, L501.5200 ####[facility] [address] [place], [address] Bilirubin [Mass/Vol] 0.36 mg/dL Normal 0.00-1.30 [facility] Comment on above: Order Comment: Comme nts: NPO at [place] prior to lipid panel Performed By: #### L 501.9520, L501.2300, L100.0100, L500.4050, L500.4100, L501.5200 ####[facility] [address] [place], [address] BUN/CRE 20.6 RATIO High 10-20 [facility] Comment on above: Order Comment: Comme nts: NPO at [place] prior to lipid panel Performed By: #### L 501.9520, L501.2300, L100.0100, L500.4050, L500.4100, L501.5200 ####[facility] [address] [place], [address] Calcium [Mass/Vol] 9.1 mg/dL Normal 7.6-11.0 [facility] Comment on above: Order Comment: Comme nts: NPO at [place] prior to lipid panel Performed By: #### L 501.9520, L501.2300, L100.0100, L500.4050, L500.4100, L501.5200 ####[facility] [address] [place], [address] Chloride [Moles/Vol] 106 mmol/L Normal 98-108 [facility] Comment on above: Order Comment: Comme nts: NPO at [place] prior to lipid panel Performed By: #### L 501.9520, L501.2300, L100.0100, L500.4050, L500.4100, L501.5200 ####[facility] [address] [place], [address] CO2 [Moles/Vol] 23.7 mmol/L Normal 21.0-32.0 [facility] Comment on above: Order Comment: Comme nts: NPO at [place] prior to lipid panel Performed By: #### L 501.9520, L501.2300, L100.0100, L500.4050, L500.4100, L501.5200 ####[facility] [address] [place], [address] Creatinine [Mass/Vol] 0.84 mg/dL Normal 0.70-1.20 [facility] Comment on above: Order Comment: Comme nts: NPO at [place] prior to lipid panel Performed By: #### L 501.9520, L501.2300, L100.0100, L500.4050, L500.4100, L501.5200 ####[facility] [address] [place], [address] ECRCL 38.02 ml/min Low 50-250 [facility] Comment on above: Order Comment: Comme nts: NPO at [place] prior to lipid panel Performed By: #### L 501.9520, L501.2300, L100.0100, L500.4050, L500.4100, L501.5200 ####[facility] [address] [place], [address] GAP 10 Normal 5-15 [facility] Comment on above: Order Comment: Comme nts: NPO at [place] prior to lipid panel Performed By: #### L 501.9520, L501.2300, L100.0100, L500.4050, L500.4100, L501.5200 ####[facility] [address] [place], [address] GFR/1.73 sq M.predicted among non-blacks MDRD (S/P/Bld) [Vol rate/Area] 68 mL/min/{1.73_m2} Normal >60 [facility] Comment on above: Order Comment: Comme nts: NPO at [place] prior to lipid panel Result Comment: mL/m in/1.73m2 CKD-EPI Creatinine Equation (2020) Performed By: #### L 501.9520, L501.2300, L100.0100, L500.4050, L500.4100, L501.5200 ####[facility] [address] [place], [address] Globulin (S) [Mass/Vol] 2.6 g/dL Normal 2.2-4.2 [facility] Comment on above: Order Comment: Comme nts: NPO at [place] prior to lipid panel Performed By: #### L 501.9520, L501.2300, L100.0100, L500.4050, L500.4100, L501.5200 ####[facility] [address] [place], [address] Glucose [Mass/Vol] 102 mg/dL High 70-99 [facility] Comment on above: Order Comment: Comme nts: NPO at [place] prior to lipid panel Performed By: #### L 501.9520, L501.2300, L100.0100, L500.4050, L500.4100, L501.5200 ####[facility] [address] [place], [address] Potassium [Moles/Vol] 4.3 mmol/L Normal 3.3-5.1 [facility] Comment on above: Order Comment: Comme nts: NPO at [place] prior to lipid panel Performed By: #### L 501.9520, L501.2300, L100.0100, L500.4050, L500.4100, L501.5200 ####[facility] [address] [place], [address] Sodium [Moles/Vol] 140 mmol/L Normal 133-145 [facility] Comment on above: Order Comment: Comme nts: NPO at [place] prior to lipid panel Performed By: #### L 501.9520, L501.2300, L100.0100, L500.4050, L500.4100, L501.5200 ####[facility] [address] [place], [address] T PROT 6.3 g/dL Normal 5.9-8.4 [facility] Comment on above: Order Comment: Comme nts: NPO at [place] prior to lipid panel Performed By: #### L 501.9520, L501.2300, L100.0100, L500.4050, L500.4100, L501.5200 ####[facility] [address] [place], [address] Urea nitrogen [Mass/Vol] 17 mg/dL Normal 4-19 [facility] Comment on above: Order Comment: Comme nts: NPO at [place] prior to lipid panel Performed By: #### L 501.9520, L501.2300, L100.0100, L500.4050, L500.4100, L501.5200 ####[facility] [address] [place], [address] Echocardiogram study reportO rdered By: Cricket Leyva on 08-19-2024 Study report [facility] [address] [place] [address] Echo Complete 08/19/24 0944 MR#: [id number] Acct: [id number] Name: BEHZAD HAY Rep #:[id number] : 1940 84 From: Cricket Leyva MD Attending Dr: DO Brittney Feliz tatus: ADM IN Ordering Dr: Mara Mar DO Date: 11/05 Location: [facility] Sex: F C Admitted: 08/18/24 Reason For [...] ~ Date Dictated: 08/19/24943 Date Transcribed: 08/19/241214 Uniform Maker: Signed [facility] Work Phone: Eosinophil percentageOrdered By: Mara Mar on 08-19-2024 Eosinophils/100 WBC (Bld) 3.9 % 0-5 [facility] Immature granulocytes/100 WB C Auto (Bld)Ordered By: Mara Mar on 08-19-2024 Immature granulocytes/100 WBC (Bld) 0.300 % 0.0-0.9 [facility] Comment on above: IG% - Immature Granu locytes (promyelocytes, myelocytes and metamyelocytes) > 1% indicates that a LEFT SHIFT is Present. LDL calc ser/plasOrdered By: Mara Mar on 08-19-2024 Cholesterol in LDL [Mass/Vol] 112 mg/dL [facility] Comment on above: Fglmnkxqwc=091-196 m g/dL & Higher Lbmu=029 mg/dL or greater Laboratory - Chemistry and C hemistry - challengeOrdered By: Mara Mar on 08-19-2024 AST [Catalytic activity/Vol] 33 U/L High <32 [facility] Lipid Profileon 08-19-2024 CHOL:HDL 3.03 Normal [facility] Comment on above: Order Comment: Comme nts: NPO at [place] prior to lipid panel Performed By: #### L 501.9520, L501.2300, L100.0100, L500.4050, L500.4100, L501.5200 ####[facility] [id number] [place], [address] Cholesterol [Mass/Vol] 189 mg/dL Normal <=200 [facility] Comment on above: Order Comment: Comme nts: NPO at [place] prior to lipid panel Result Comment: Chol esterol level, Desirable <200 mg/dLBorderline high cholesterol 200-239 mg/dLHigh cholesterol >=240 mg/dLRecommendations of the NCEP Adult Treatment Panel for thefollowing risk-cutoff thresholds for the [place] Americanpulation. Performed By: #### L 501.9520, L501.2300, L100.0100, L500.4050, L500.4100, L501.5200 ####[facility] [id number] [place], [place], [phone]) Cholesterol in HDL [Mass/Vol] 62 mg/dL Normal [facility] Comment on above: Order Comment: Comme nts: NPO at [place] prior to lipid panel Result Comment: Jo onal Cholesterol Education Program (NCEP) guidelines:<40 mg/dL: Low HDL-cholesterol (major risk factor for CHD)>= 60 mg/dL: High HDL-cholesterol (negative risk factor forCHD)HDL-cholesterol is affected by a number of factors, e.g.smoking, exercise, hormones, sex and age. Performed By: #### L 501.9520, L501.2300, L100.0100, L500.4050, L500.4100, L501.5200 ####[facility] [address] [place], [address] Cholesterol in LDL [Mass/Vol] 112 mg/dL Normal [facility] Comment on above: Order Comment: Comme nts: NPO at [place] prior to lipid panel Result Comment: Bord gixloc=652-844 mg/dL Higher Lvsx=243 mg/dL or greater Performed By: #### L 501.9520, L501.2300, L100.0100, L500.4050, L500.4100, L501.5200 ####[facility] [address] [place], [place], [phone](891) Cholesterol in VLDL [Mass/Vol] 15 mg/dL Normal 5-40 [facility] Comment on above: Order Comment: Comme nts: NPO at [place] prior to lipid panel Performed By: #### L 501.9520, L501.2300, L100.0100, L500.4050, L500.4100, L501.5200 ####[facility] [address] [place], [address] Triglyceride [Mass/Vol] 75 mg/dL Normal [facility] Comment on above: Order Comment: Comme nts: NPO at [place] prior to lipid panel Result Comment: The drugs N-Acetylcysteine and Metamizole may falselydepress this assay.Normal range: <150 mg/dLBorderline High: 150-199 mg/dLHigh: 200-499 mg/dLVery High: >500 mg/dL Performed By: #### L 501.9520, L501.2300, L100.0100, L500.4050, L500.4100, L501.5200 ####[facility] [address] [place], [address] MR/CON.PCM.NEon 08-19-2024 MR/CON.PCM.NE Normal [facility] Magnesiumon 08-19-2024 Magnesium [Mass/Vol] 2.3 mg/dL High 1.5-2.2 [facility] Comment on above: Order Comment: Comme nts: NPO at [place] prior to lipid panel Performed By: #### L 501.9520, L501.2300, L100.0100, L500.4050, L500.4100, L501.5200 ####[facility] [address] [place], [place], [phone] Magnesium measurement (mass/ volume)Ordered By: Mara Mar on 08-19-2024 Magnesium (Unsp spec) [Mass/Vol] 2.3 mg/dL High 1.5-2.2 [facility] Monocyte percentageOrdered B y: Mara Mar on 08-19-2024 Monocytes/100 WBC (Bld) 8.5 % 0-10 [facility] Neutrophil percentageOrdered By: Mara Mar on 08-19-2024 Neutrophils/100 WBC (Bld) 67.8 % 47-70 [facility] Nucleated red blood cell per centageOrdered By: Mara Mar on 08-19-2024 Nucleated RBC/100 WBC (Bld) [Ratio] 0 % 0-5 [facility] Phosphoruson 08-19-2024 Phosphate [Mass/Vol] 3.2 mg/dL Normal 2.7-4.5 [facility] Comment on above: Order Comment: Comme nts: NPO at [place] prior to lipid panel Performed By: #### L 501.9520, L501.2300, L100.0100, L500.4050, L500.4100, L501.5200 ####[facility] [address] [place], [address] Screening total cholesterol/ high density lipoprotein (HDL) cholesterol ratioOrdered By: Mara Mar on 08-19-2024 Cholesterol.total/Cho lesterol in HDL [Mass ratio] 3.03 {ratio} [facility] Serum globulin measurementOr dered By: Mara Mar on 08-19-2024 Globulin (S) [Mass/Vol] 2.6 g/dL 2.2-4.2 [facility] Serum or plasma alanine tierney otransferase (ALT) measurementOrdered By: Mara Mar on 08-19-2024 ALT [Catalytic activity/Vol] 18 U/L <35 [facility] Serum or plasma albumin camilo urement (mass/volume)Ordered By: Mara Mar on 08-19-2024 Albumin [Mass/Vol] 3.7 g/dL 3.4-4.8 [facility] Serum or plasma albumin/glob ulin mass ratioOrdered By: aMra Mar on 08-19-2024 Albumin/Globulin [Mass ratio] 1.4 {ratio} 0.9-2.4 [facility] Serum or plasma alkaline jordan sphatase measurementOrdered By: Mara Mar on 08-19-2024 ALP [Catalytic activity/Vol] 70 U/L 35-104 [facility] Serum or plasma cholesterol in HDL measurement (mass/volume)Ordered By: Mara Mar on 08-19-2024 Cholesterol in HDL [Mass/Vol] 62 mg/dL >40 [facility] Comment on above: National Cholesterol Education Program (NCEP) guidelines:<40 mg/dL: Low HDL-cholesterol (major risk factor for CHD)>= 60 mg/dL: High HDL-cholesterol (negative risk factor for CHD)HDL-cholesterol is affected by a number of factors, e.g. smoking, exercise, hormones, sex and age. Serum or plasma cholesterol measurement (mass/volume)Ordered By: Mara Mar on 08-19-2024 Cholesterol [Mass/Vol] 189 mg/dL <201 [facility] Comment on above: Cholesterol level, D esirable <200 mg/dLBorderline high cholesterol 200-239 mg/dLHigh cholesterol >=240 mg/dLRecommendations of the NCEP Adult Treatment Panel for the following risk-cutoff thresholds for the [place] population. TSH DL <= 0.005 mIU/L QnOrde red By: Mara Mar on 08-19-2024 TSH Qn 1.590 uIU/mL 0.300-4.20 0 [facility] Thyroid Stim Hormone (TSH)on 08-19-2024 TSH 1.590 uIU/mL Normal 0.300-4.20 0 [facility] Comment on above: Order Comment: Comme nts: NPO at [place] prior to lipid panel Performed By: #### L 501.9520, L501.2300, L100.0100, L500.4050, L500.4100, L501.5200 ####[facility] [address] [place], [address] Total proteinOrdered By: Randa Mar on 08-19-2024 Protein [Mass/Vol] 6.3 g/dL 5.9-8.4 [facility] Triglycerides measurementOrd ered By: Mara Mar on 08-19-2024 Triglyceride [Mass/Vol] 75 mg/dL <199 [facility] Comment on above: The drugs N-Acetylcy steine and Metamizole may falsely depress this assay. Normal range: <150 mg/dLBorderline High: 150-199 mg/dLHigh: 200-499 mg/dLVery High: >500 mg/dL 12 Lead EKGon 08-18-2024 12 Lead EKG Normal [facility] Absolute lymphocyte countOrd ered By: Fawad Cordon on 08-18-2024 Lymphocytes Auto (Unsp spec) [#/Vol] 0.91 10*3/uL 0.83-4.51 [facility] Absolute neutrophil countOrd ered By: Fawad Cordon on 08-18-2024 Neutrophils (Bld) [#/Vol] 6.6 10*3/uL 2.0-7.7 [facility] Activated partial thrombopla stin time (aPTT) in platelet poor plasma by coagulation aOrdered By: Fawad Cordon on 08-18-2024 aPTT Coag (PPP) [Time] 24.6 s 24.1-36.2 [facility] Alcohol, Blood (Medical)-Ser umon 08-18-2024 SERUM ETOH < 10.1 Normal <=10.0 [facility] Comment on above: Result Comment: This test is for medical purposes only. The legaldefinition of intoxication varies according to local law. Performed By: #### L 500.2500, L505.5000, L500.3400, L100.0100, L300.3900, L300.4310, L501.9100 ####[facility] [address] [place], [address] Amphetamine detection with 1 000 ng/mL as cutoffOrdered By: Fawad Cordon on 08-18-2024 Amphetamines Screen method >1000 ng/mL Ql (U) Negative < 200 ng/mL [facility] Anion gap in Serum or Plasma Ordered By: Fawad Cordon on 08-18-2024 Anion gap [Moles/Vol] 11 mmol/L 5-15 [facility] Automated lymphocyte count a s percentage of total leukocytesOrdered By: Fawad Cordon on 08-18-2024 Lymphocytes/100 WBC Auto (Unsp spec) 10.9 % Low 19-41 [facility] BUN/creatinine ratioOrdered By: Fawad Cordon on 08-18-2024 Urea nitrogen/Creatinine [Mass ratio] 27.4 mg/mg [address] [facility] Basic Metabolic Profile (BMP )on 08-18-2024 BUN/CRE 27.[address] Comment on above: Performed By: #### L 500.2500, L505.5000, L500.3400, L100.0100, L300.3900, L300.4310, L501.9100 ####[facility] [address] [place], [address] Calcium [Mass/Vol] 10.0 mg/dL Normal 7.6-11.0 [facility] Comment on above: Performed By: #### L 500.2500, L505.5000, L500.3400, L100.0100, L300.3900, L300.4310, L501.9100 ####[facility] [address] [place], [address] Chloride [Moles/Vol] 106 mmol/L Normal 98-108 [facility] Comment on above: Performed By: #### L 500.2500, L505.5000, L500.3400, L100.0100, L300.3900, L300.4310, L501.9100 ####[facility] [address] [place], [address] CO2 [Moles/Vol] 25.9 mmol/L Normal 21.0-32.0 [facility] Comment on above: Performed By: #### L 500.2500, L505.5000, L500.3400, L100.0100, L300.3900, L300.4310, L501.9100 ####[facility] [address] [place], [address] Creatinine [Mass/Vol] 1.00 mg/dL Normal 0.70-1.20 [facility] Comment on above: Performed By: #### L 500.2500, L505.5000, L500.3400, L100.0100, L300.3900, L300.4310, L501.9100 ####[facility] [address] [place], [address] ECRCL 31.63 ml/min Low 50-250 [facility] Comment on above: Performed By: #### L 500.2500, L505.5000, L500.3400, L100.0100, L300.3900, L300.4310, L501.9100 ####[facility] [address] [place], [address] GAP 11 Normal 5-15 [facility] Comment on above: Performed By: #### L 500.2500, L505.5000, L500.3400, L100.0100, L300.3900, L300.4310, L501.9100 ####[facility] [address] [place], [place], [phone](459) GFR/1.73 sq M.predicted among non-blacks MDRD (S/P/Bld) [Vol rate/Area] 55 mL/min/{1.73_m2} Low >60 [facility] Comment on above: Result Comment: mL/m in/1.73m2 CKD-EPI Creatinine Equation (2020) Performed By: #### L 500.2500, L505.5000, L500.3400, L100.0100, L300.3900, L300.4310, L501.9100 ####[facility] [address] [place], [address] Glucose [Mass/Vol] 72 mg/dL Normal 70-99 [facility] Comment on above: Performed By: #### L 500.2500, L505.5000, L500.3400, L100.0100, L300.3900, L300.4310, L501.9100 ####[facility] [address] [place], [address] Potassium [Moles/Vol] 4.3 mmol/L Normal 3.3-5.1 [facility] Comment on above: Performed By: #### L 500.2500, L505.5000, L500.3400, L100.0100, L300.3900, L300.4310, L501.9100 ####[facility] [address] [place], [place], [phone] Sodium [Moles/Vol] 142 mmol/L Normal 133-145 [facility] Comment on above: Performed By: #### L 500.2500, L505.5000, L500.3400, L100.0100, L300.3900, L300.4310, L501.9100 ####[facility] [address] [place], [place], [id number] Urea nitrogen [Mass/Vol] 27 mg/dL High 4-19 [facility] Comment on above: Performed By: #### L 500.2500, L505.5000, L500.3400, L100.0100, L300.3900, L300.4310, L501.9100 ####[facility] [address] [place], [place], [phone] Basophil percentageOrdered B y: Fawad Cordon on 08-18-2024 Basophils/100 WBC (Bld) 1.3 % High 0-1 [facility] Bilirubin Test strip Ql (U)O rdered By: Fawad Cordon on 08-18-2024 Bilirubin Ql (U) Negative Negative [facility] Bilirubin directOrdered By: Fawad Cordon on 08-18-2024 Bilirubin.direct [Mass/Vol] 0.13 mg/dL 0.00-0.30 [facility] Bilirubin, totalOrdered By: Fawad Cordon on 08-18-2024 Bilirubin [Mass/Vol] 0.34 mg/dL 0.00-1.30 [facility] Blood cultureOrdered By: Gera Cordon on 08-18-2024 Bacteria identified Cx Nom (Bld) No growth in 5 days. [facility] Brain without Contraston Brain without Contrast Normal [facility] CBC W/Diff, Automatedon 05-0 7-2024 Absolute Lymph 0.91 X10 3/uL Normal 0.83-4.51 [facility] Comment on above: Performed By: #### L 500.2500, L505.5000, L500.3400, L100.0100, L300.3900, L300.4310, L501.9100 ####[facility] [address] [place], [address] Absolute Neut 6.6 X10 3/uL Normal 2.0-7.7 [facility] Comment on above: Performed By: #### L 500.2500, L505.5000, L500.3400, L100.0100, L300.3900, L300.4310, L501.9100 ####[facility] [address] [place], [address] Basophils/100 WBC (Bld) 1.3 % High 0-1 [facility] Comment on above: Performed By: #### L 500.2500, L505.5000, L500.3400, L100.0100, L300.3900, L300.4310, L501.9100 ####[facility] [address] [place], [address] Eosinophils/100 WBC (Bld) 0.7 % Normal 0-5 [facility] Comment on above: Performed By: #### L 500.2500, L505.5000, L500.3400, L100.0100, L300.3900, L300.4310, L501.9100 ####[facility] [address] [place], [address] Erythrocyte distribution width (RBC) [Ratio] 13.0 % Normal 11.6-14.6 [facility] Comment on above: Performed By: #### L 500.2500, L505.5000, L500.3400, L100.0100, L300.3900, L300.4310, L501.9100 ####[facility] [address] [place], [address] Hematocrit (Bld) [Volume fraction] 40.0 % Normal 37-47 [facility] Comment on above: Performed By: #### L 500.2500, L505.5000, L500.3400, L100.0100, L300.3900, L300.4310, L501.9100 ####[facility] [address] [place], [address] Hemoglobin (Bld) [Mass/Vol] 13.0 g/dL Normal 12.0-15.0 [facility] Comment on above: Performed By: #### L 500.2500, L505.5000, L500.3400, L100.0100, L300.3900, L300.4310, L501.9100 ####[facility] [address] [place], [address] IG% 0.400 Normal 0.0-0.9 [facility] Comment on above: Result Comment: IG% - Immature Granulocytes (promyelocytes, myelocytes andmetamyelocytes) > 1% indicates that a LEFT SHIFT is Present. Performed By: #### L 500.2500, L505.5000, L500.3400, L100.0100, L300.3900, L300.4310, L501.9100 ####[facility] [address] [place], [address] Lymphocytes/100 WBC (Bld) 10.9 % Low 19-41 [facility] Comment on above: Performed By: #### L 500.2500, L505.5000, L500.3400, L100.0100, L300.3900, L300.4310, L501.9100 ####[facility] [address] [place], [address] MCH (RBC) [Entitic mass] 31.2 pg Normal 27.0-32.0 [facility] Comment on above: Performed By: #### L 500.2500, L505.5000, L500.3400, L100.0100, L300.3900, L300.4310, L501.9100 ####[facility] [address] [place], [address] MCHC (RBC) [Mass/Vol] 32.5 g/dL Normal 32-36 [facility] Comment on above: Performed By: #### L 500.2500, L505.5000, L500.3400, L100.0100, L300.3900, L300.4310, L501.9100 ####[facility] [address] [place], [address] MCV (RBC) [Entitic vol] 95.9 fL Normal 81-99 [facility] Comment on above: Performed By: #### L 500.2500, L505.5000, L500.3400, L100.0100, L300.3900, L300.4310, L501.9100 ####[facility] [address] [place], [address] Monocytes/100 WBC (Bld) 7.5 % Normal 0-10 [facility] Comment on above: Performed By: #### L 500.2500, L505.5000, L500.3400, L100.0100, L300.3900, L300.4310, L501.9100 ####[facility] [address] [place], [address] Neutrophils/100 WBC (Bld) 79.2 % High 47-70 [facility] Comment on above: Performed By: #### L 500.2500, L505.5000, L500.3400, L100.0100, L300.3900, L300.4310, L501.9100 ####[facility] [address] [place], [address] Nucleated RBC (Bld) [#/Vol] 0 10*3/uL Normal 0-5 [facility] Comment on above: Performed By: #### L 500.2500, L505.5000, L500.3400, L100.0100, L300.3900, L300.4310, L501.9100 ####[facility] [address] [place], [address] Platelet mean volume (Bld) [Entitic vol] 9.1 fL Normal 6.2-12.0 [facility] Comment on above: Performed By: #### L 500.2500, L505.5000, L500.3400, L100.0100, L300.3900, L300.4310, L501.9100 ####[facility] [address] [place], [address] Platelets (Bld) [#/Vol] 254 10*3/uL Normal 150-450 [facility] Comment on above: Performed By: #### L 500.2500, L505.5000, L500.3400, L100.0100, L300.3900, L300.4310, L501.9100 ####[facility] [address] [place], [place], [phone] RBC (Bld) [#/Vol] 4.17 10*6/uL Low 4.2-5.4 [facility] Comment on above: Performed By: #### L 500.2500, L505.5000, L500.3400, L100.0100, L300.3900, L300.4310, L501.9100 ####[facility] [address] [place], [address] RDW SD 45.8 fl High 35.1-43.9 [facility] Comment on above: Performed By: #### L 500.2500, L505.5000, L500.3400, L100.0100, L300.3900, L300.4310, L501.9100 ####[facility] [address] [place], [place], [address] WBC (Bld) [#/Vol] 8.4 10*3/uL Normal 4.4-11.0 [facility] Comment on above: Performed By: #### L 500.2500, L505.5000, L500.3400, L100.0100, L300.3900, L300.4310, L501.9100 ####[facility] [address] [place], [address] Carbon dioxide, total [Moles /volume] in Central venous bloodOrdered By: Fawad Cordon on 08-18-2024 CO2 [Moles/Vol] 25.9 mmol/L 21.0-32.0 [facility] Chloride assayOrdered By: Adiel Cordon on 08-18-2024 Chloride [Moles/Vol] 106 mmol/L 98-108 [facility] Echo Completeon 08-18-2024 Echo Complete Normal [facility] Emergency Department Summary on 08-18-2024 Emergency Department Summary Normal [facility] Eosinophil percentageOrdered By: Fawad Cordno on 08-18-2024 Eosinophils/100 WBC (Bld) 0.7 % 0-5 [facility] Erythrocyte distribution wid th ratioOrdered By: Fawad Cordon on 08-18-2024 Erythrocyte distribution width (RBC) [Ratio] 13.0 % 11.6-14.6 [facility] Erythrocyte distribution wid th standard deviationOrdered By: Fawad Cordon on 08-18-2024 Erythrocyte distribution width (RBC) [Ratio] 45.8 fl High 35.1-43.9 [facility] Glomerular filtration rate ( GFR) estimation/1.73 sq m using serum, plasma, or whole bOrdered By: Fawad Cordon on 08-18-2024 GFR/1.73 sq M.predicted among non-blacks MDRD (S/P/Bld) [Vol rate/Area] 55 mL/min/{1.73_m2} Low >60 [facility] Comment on above: mL/min/1.73m2 CKD-EP I Creatinine Equation (2020) H AND P Exam - Hospital[place] 08-18-2024 H&P Exam - Hospitalist Normal [facility] Hematocrit Auto (Bld) [Volum e fraction]Ordered By: Fawad Cordon on 08-18-2024 Hematocrit (Bld) [Volume fraction] 40.0 % 37-47 [facility] Hemoglobin A1con 08-18-2024 HbA1c (Bld) [Mass fraction] 5.7 % Normal <=5.6 [facility] Comment on above: Result Comment: Norm al < 5.7 % Prediabetic 5.7 - 6.4 % Diabetic >or= 6.5 % Please note range changes. Performed By: #### L 501.9904 ####[facility] [address] [place], [place], [phone] Hemoglobin A1c percentageOrd ered By: Mara Mar on 08-18-2024 HbA1c (Bld) [Mass fraction] 5.7 % <5.7 [facility] Comment on above: Normal < 5.7 % Predi abetic 5.7 - 6.4 % Diabetic >or= 6.5 % Please note range changes. Hemoglobin measurementOrdere d By: Fawad Cordon on 08-18-2024 Hemoglobin (Bld) [Mass/Vol] 13.0 g/dL 12.0-15.0 [facility] Immature granulocytes/100 WB C Auto (Bld)Ordered By: Fawad Cordon on 08-18-2024 Immature granulocytes/100 WBC (Bld) 0.400 % 0.0-0.9 [facility] Comment on above: IG% - Immature Granu locytes (promyelocytes, myelocytes and metamyelocytes) > 1% indicates that a LEFT SHIFT is Present. International normalized rat io (INR) calculationOrdered By: Fawad Cordon on 08-18-2024 INR Coag (Bld) [Relative time] 1.0 {INR} [facility] Ketones Test strip Ql (U)Ord ered By: Fawda Cordon on 08-18-2024 Ketones Ql (U) Negative Negative [facility] Laboratory - Chemistry and C hemistry - challengeOrdered By: Fawad Cordon on 08-18-2024 AST [Catalytic activity/Vol] 36 U/L High <32 [facility] Lactic Acidon 08-18-2024 Lactate [Moles/Vol] mmol/L Normal 0.0-2.0 [facility] Comment on above: Order Comment: Y Performed By: #### L 503.6005 ####[facility] [address] [place], [place], [phone] Lactic acid measurementOrder ed By: Fawad Cordon on 08-18-2024 Lactate [Moles/Vol] mmol/L 0.0-2.0 [facility] Liver Profileon 08-18-2024 Albumin [Mass/Vol] 4.4 g/dL Normal 3.4-4.8 [facility] Comment on above: Performed By: #### L 500.2500, L505.5000, L500.3400, L100.0100, L300.3900, L300.4310, L501.9100 ####[facility] [address] [place], [place], [id number] ALK PHOS 82 U/L Normal 35-104 [facility] Comment on above: Performed By: #### L 500.2500, L505.5000, L500.3400, L100.0100, L300.3900, L300.4310, L501.9100 ####[facility] [address] [place], [place], [id number] ALT [Catalytic activity/Vol] 24 U/L Normal <=34 [facility] Comment on above: Performed By: #### L 500.2500, L505.5000, L500.3400, L100.0100, L300.3900, L300.4310, L501.9100 ####[facility] [address] [place], [address] AST [Catalytic activity/Vol] 36 U/L High <=31 [facility] Comment on above: Performed By: #### L 500.2500, L505.5000, L500.3400, L100.0100, L300.3900, L300.4310, L501.9100 ####[facility] [address] [place], [address] Bilirubin [Mass/Vol] 0.34 mg/dL Normal 0.00-1.30 [facility] Comment on above: Performed By: #### L 500.2500, L505.5000, L500.3400, L100.0100, L300.3900, L300.4310, L501.9100 ####[facility] [address] [place], [address] Bilirubin.direct [Mass/Vol] 0.13 mg/dL Normal 0.00-0.30 [facility] Comment on above: Performed By: #### L 500.2500, L505.5000, L500.3400, L100.0100, L300.3900, L300.4310, L501.9100 ####[facility] [address] [place], [place], [phone](089) Globulin (S) [Mass/Vol] 3.2 g/dL Normal 2.2-4.2 [facility] Comment on above: Performed By: #### L 500.2500, L505.5000, L500.3400, L100.0100, L300.3900, L300.4310, L501.9100 ####[facility] [address] [place], [place], [phone]) T PROT 7.6 g/dL Normal 5.9-8.4 [facility] Comment on above: Performed By: #### L 500.2500, L505.5000, L500.3400, L100.0100, L300.3900, L300.4310, L501.9100 ####[facility] [address] [place], [address] MCV (mean corpuscular volume ) determinationOrdered By: Fawad Cordon on 08-18-2024 MCV (RBC) [Entitic vol] 95.9 fL 81-99 [facility] Magnetic resonance imaging r eportOrdered By: Eliezer Kasper on 08-18-2024 Study report [facility] Imaging [place] [address] Brain without Contrast MR#: [id number] Acct: [id number] Name: BEHZAD HAY Rep #: [id number] : 1940 F 84 From: Glory Kasper MD PCP: Tasha Deutsch, FIELD SEISMOLOGIST Status: ADM JENNY Study:Brain without Contrast Date of Exam: 08/18/24 Exam# [id number] Ordering Dr: Eliana Mar DO PROCEDURE: BRAIN [...] 6:39 pm with readback verification. Reading [facility] CC: GARFIELD Deutsch; Dr. Mara Mar, DO ~ Uniform Maker: Signed [facility] Mean corpuscular hemoglobin (MCH) determinationOrdered By: Fawad Cordon on 08-18-2024 MCH (RBC) [Entitic mass] 31.2 pg 27.0-32.0 [facility] Mean corpuscular hemoglobin concentration (MCHC) determinationOrdered By: Fawad Cordon on 08-18-2024 MCHC (RBC) [Mass/Vol] 32.5 g/dL 32-36 [facility] Mean platelet volume determi nationOrdered By: Fawad Cordon on 08-18-2024 Platelet mean volume (Bld) [Entitic vol] 9.1 fL 6.2-12.0 [facility] Microscopic analysis of urin e for red blood cells (RBC)Ordered By: Fawad Cordon on 08-18-2024 Microscopic analysis of urine for red blood cells (RBC) 0 SEEN /hpf 0-5 [facility] Monocyte percentageOrdered B y: Fawad Cordon on 08-18-2024 Monocytes/100 WBC (Bld) 7.5 % 0-10 [facility] Mucus LM Ql (Urine sed)Order ed By: Fawad Cordon on 08-18-2024 Mucus Ql (Urine sed) 0 SEEN /hpf [facility] Neutrophil percentageOrdered By: Fawad Cordon on 08-18-2024 Neutrophils/100 WBC (Bld) 79.2 % High 47-70 [facility] Nitrite Test strip Ql (U)Ord ered By: Fawad Cordon on 08-18-2024 Nitrite Ql (U) Positive High Negative [facility] No Panel InformationOrdered By: Fawad Cordon on 08-18-2024 Urine Buprenorphine Qualitative Negative < 200 ng/mL [facility] Urine Oxycodone Screen Negative < 100 ng/mL [facility] Nucleated red blood cell per centageOrdered By: Fawad Cordon on 08-18-2024 Nucleated RBC/100 WBC (Bld) [Ratio] 0 % 0-5 [facility] Partial Thromboplast Timeon 08-18-2024 aPTT Coag (Bld) [Time] 24.6 s Normal 24.1-36.2 [facility] Comment on above: Performed By: #### L 500.2500, L505.5000, L500.3400, L100.0100, L300.3900, L300.4310, L501.9100 ####[facility] [address] [place], [place], [id number] Platelet countOrdered By: Adiel Cordon on 08-18-2024 Platelets (Bld) [#/Vol] 254 10*3/uL 150-450 [facility] Potassium measurement (mass/ volume)Ordered By: Fawad Cordon on 08-18-2024 Potassium (Unsp spec) [Mass/Vol] 4.3 mmol/L 3.3-5.1 [facility] Protein Test strip Ql (U)Ord ered By: Fawad Cordon on 08-18-2024 Protein Ql (U) 30 mg/dl High Negative [facility] Prothrombin Time w/INRon INR Coag (PPP) [Relative time] 1.0 {INR} Normal [facility] Comment on above: Performed By: #### L 500.2500, L505.5000, L500.3400, L100.0100, L300.3900, L300.4310, L501.9100 ####[facility] [address] [place], [place], [id number] PT Coag (PPP) [Time] 13.1 s Normal 11.7-14.9 [facility] Comment on above: Performed By: #### L 500.2500, L505.5000, L500.3400, L100.0100, L300.3900, L300.4310, L501.9100 ####[facility] [address] [place], [address] Prothrombin timeOrdered By: Fawad Cordon on 08-18-2024 PT Coag (PPP) [Time] 13.1 s 11.7-14.9 [facility] Quantitative urine opiates m easurementOrdered By: Fawad Cordon on 08-18-2024 Opiates Ql (U) Negative < 300 ng/mL [facility] RBC Auto (Bld) [#/Vol]Ordere d By: Fawad Cordon on 08-18-2024 RBC (Bld) [#/Vol] 4.17 10*6/uL Low 4.2-5.4 [facility] STROKE CTA Head AND Neck W/C onon 08-18-2024 STROKE CTA Head AND Neck W/Con Normal [facility] Screening urine fentanyl reyes surementOrdered By: Fawad Cordon on 08-18-2024 fentaNYL Screen Ql (U) Negative [facility] Serum creatinine measurement (mass/volume)Ordered By: Fawad Cordon on 08-18-2024 Creatinine [Mass/Vol] 1.00 mg/dL 0.70-1.20 [facility] Serum globulin measurementOr dered By: Fawad Cordon on 08-18-2024 Globulin (S) [Mass/Vol] 3.2 g/dL 2.2-4.2 [facility] Serum glucose measurement (m ass/volume)Ordered By: Fawad Cordon on 08-18-2024 Glucose [Mass/Vol] 72 mg/dL 70-99 [facility] Serum or plasma alanine tierney otransferase (ALT) measurementOrdered By: Fawad Cordon on 08-18-2024 ALT [Catalytic activity/Vol] 24 U/L <35 [facility] Serum or plasma albumin camilo urement (mass/volume)Ordered By: Fawad Cordon on 08-18-2024 Albumin [Mass/Vol] 4.4 g/dL 3.4-4.8 [facility] Serum or plasma alkaline jordan sphatase measurementOrdered By: Fawad Cordon on 08-18-2024 ALP [Catalytic activity/Vol] 82 U/L 35-104 [facility] Serum or plasma calcium camilo urement (mass/volume)Ordered By: Fawad Cordon on 08-18-2024 Calcium [Mass/Vol] 10.0 mg/dL 7.6-11.0 [facility] Serum or plasma ethanol camilo urement (mass/volume)Ordered By: Fawad Cordon on 08-18-2024 Ethanol [Mass/Vol] mg/dL <10.1 [facility] Comment on above: This test is for med ical purposes only. The legal definition of intoxication varies according to local law. Serum or plasma urea nitroge n measurement (mass/volume)Ordered By: Fawad Cordon on 08-18-2024 Urea nitrogen [Mass/Vol] 27 mg/dL High 4-19 [facility] Sodium levelOrdered By: Ernesto Cordon on 08-18-2024 Sodium [Moles/Vol] 142 mmol/L 133-145 [facility] Squamous epithelial cells de tection in urine sediment by light microscopyOrdered By: Fawad Cordon on 08-18-2024 Epithelial cells.squamous LM Ql (Urine sed) 0 SEEN /hpf - [facility] Total proteinOrdered By: Gera Cordon on 08-18-2024 Protein [Mass/Vol] 7.6 g/dL 5.9-8.4 [facility] Urinalysis, Completeon 08-18 BACTERIA 3+ /hpf Normal None Seen [facility] Comment on above: Order Comment: CLEAN CATCH Performed By: #### L 400.0001 ####[facility] [address] [place], [place], [id number] WBC 10-25 SEEN Normal 0-[address] [place] [address] Comment on above: Order Comment: CLEAN CATCH Performed By: #### L 400.0001 ####[facility] [address] [place], [address] EPI,SQUAMOUS 0 SEEN Normal - [facility] Comment on above: Order Comment: CLEAN CATCH Performed By: #### L 400.0001 ####[facility] [address] [place], [address] Mucus Ql (Urine sed) 0 SEEN Normal [facility] Comment on above: Order Comment: CLEAN CATCH Performed By: #### L 400.0001 ####[facility] [address] [place], [address] RBC 0 SEEN Normal 0-5 [facility] Comment on above: Order Comment: CLEAN CATCH Performed By: #### L 400.0001 ####[facility] [address] [place], [place], [phone] Urine Drug Screen (VISTA)on 08-18-2024 AMPHETAMINES Negative Normal <1000 ng/mL [facility] Comment on above: Performed By: #### L 500.2500, L505.5000, L500.3400, L100.0100, L300.3900, L300.4310, L501.9100 ####[facility] [address] [place], [phone] BARBITIURATES Negative Normal < 200 ng/mL [facility] Comment on above: Performed By: #### L 500.2500, L505.5000, L500.3400, L100.0100, L300.3900, L300.4310, L501.9100 ####[facility] [address] [place], [place], [phone] BENZODIAZIPINE Negative Normal < 200 ng/mL [facility] Comment on above: Performed By: #### L 500.2500, L505.5000, L500.3400, L100.0100, L300.3900, L300.4310, L501.9100 ####[facility] [address] [place], [place], [phone] BUP Ur Drug Scr Negative Normal < 200 ng/mL [facility] Comment on above: Performed By: #### L 500.2500, L505.5000, L500.3400, L100.0100, L300.3900, L300.4310, L501.9100 ####[facility] [address] [place], [place], [phone] COCAINE Negative Normal < 300 ng/mL [facility] Comment on above: Performed By: #### L 500.2500, L505.5000, L500.3400, L100.0100, L300.3900, L300.4310, L501.9100 ####[facility] [address] [place], [place], [phone] Fentanyl Negative Normal [facility] Comment on above: Performed By: #### L 500.2500, L505.5000, L500.3400, L100.0100, L300.3900, L300.4310, L501.9100 ####[facility] [address] [place] [address] METHADONE Negative Normal < 300 ng/mL [facility] Comment on above: Performed By: #### L 500.2500, L505.5000, L500.3400, L100.0100, L300.3900, L300.4310, L501.9100 ####[facility] [address] [place] [address] OPIATES Negative Normal < 300 ng/mL [facility] Comment on above: Performed By: #### L 500.2500, L505.5000, L500.3400, L100.0100, L300.3900, L300.4310, L501.9100 ####[facility] [address] [place] [address] OXYCODONE Negative Normal < 100 ng/mL [facility] Comment on above: Performed By: #### L 500.2500, L505.5000, L500.3400, L100.0100, L300.3900, L300.4310, L501.9100 ####[facility] [address] [place] [address] PCP Negative Normal < 25 ng/mL [facility] Comment on above: Performed By: #### L 500.2500, L505.5000, L500.3400, L100.0100, L300.3900, L300.4310, L501.9100 ####[facility] [address] [place] [address] THC Negative Normal < 50 ng/mL [facility] Comment on above: Performed By: #### L 500.2500, L505.5000, L500.3400, L100.0100, L300.3900, L300.4310, L501.9100 ####[facility] [address] [place], [address] Urine benzodiazepine levelOr dered By: Fawad Cordon on 08-18-2024 Benzodiazepines Ql (U) Negative < 200 ng/mL [facility] Urine clarityOrdered By: Gera Cordon on 08-18-2024 Clarity (U) Sl. Cloudy Clear [facility] Urine cocaine levelOrdered B y: Fawad Cordon on 08-18-2024 Cocaine Ql (U) Negative < 300 ng/mL [facility] Urine color determinationOrd ered By: Fawad Cordon on 08-18-2024 Color (U) Yellow Yellow [facility] Urine cultureOrdered By: Gera Cordon on 08-18-2024 Bacteria identified Cx Nom (U) Escherichia coli Abnormal [facility] Urine begww-0-uhhrpbcnhemcer abinol (THC) measurementOrdered By: Fawad Cordon on 08-18-2024 Cannabinoids Screen Ql (U) Negative < 50 ng/mL [facility] Urine glucose detectionOrder ed By: Fawad Cordon on 08-18-2024 Glucose Ql (U) Normal mg/dl Normal [facility] Urine leukocyte esterase det ection by dipstickOrdered By: Fawad Cordon on 08-18-2024 Leukocyte esterase Test strip Ql (U) 500 /ul High Negative [facility] Urine pHOrdered By: Fawad espinoza on 08-18-2024 pH (U) 7.0 [pH] 5.0 - 8.0 [facility] Urine phencyclidine (PCP) de tectionOrdered By: Fawad Cordon on 08-18-2024 Phencyclidine Ql (U) Negative < 25 ng/mL [facility] Urine sediment bacteria coun t by microscopy (number/high power field)Ordered By: Fawad Cordon on 08-18-2024 Bacteria LM.HPF (Urine sed) [#/Area] 3 /[HPF] None Seen [facility] Urine specific gravity measu rementOrdered By: Fawad Cordon on 08-18-2024 Specific gravity (U) [Rel density] 1.005 1.002-1.03 0 [facility] Urine urobilinogen measureme ntOrdered By: Fawad Cordon on 08-18-2024 Urobilinogen Ql (U) Normal mg/dl Normal [facility] White blood cell (WBC) count Ordered By: Fawad Cordon on 08-18-2024 WBC (Bld) [#/Vol] 8.4 10*3/uL 4.4-11.0 [facility] White blood cell countOrdere d By: Fawad Cordon on 08-18-2024 White blood cell count 10-25 SEEN /hpf 0-5 [facility] 12 Lead EKGon 08-16-2024 12 Lead EKG Normal [facility] Absolute lymphocyte countOrd ered By: Ricki Reyes on 08-16-2024 Lymphocytes Auto (Unsp spec) [#/Vol] 1.46 10*3/uL 0.83-4.51 [facility] Absolute neutrophil countOrd ered By: Ricki Reyes on 08-16-2024 Neutrophils (Bld) [#/Vol] 4.0 10*3/uL 2.0-7.7 [facility] Anion gap in Serum or Plasma Ordered By: Ricki Reyes on 08-16-2024 Anion gap [Moles/Vol] 10 mmol/L 5-15 [facility] Automated lymphocyte count a s percentage of total leukocytesOrdered By: Ricki Reyes on 08-16-2024 Lymphocytes/100 WBC Auto (Unsp spec) 23.7 % 19-41 [facility] BUN/creatinine ratioOrdered By: Ricki Reyes on 08-16-2024 Urea nitrogen/Creatinine [Mass ratio] 17.0 mg/mg 10-20 [facility] Basophil percentageOrdered B y: Ricki Reyes on 08-16-2024 Basophils/100 WBC (Bld) 1.5 % High 0-1 [facility] Bilirubin Test strip Ql (U)O rdered By: Ricki Reyes on 08-16-2024 Bilirubin Ql (U) Negative Negative [facility] Bilirubin, totalOrdered By: Ricki Reyes on 08-16-2024 Bilirubin [Mass/Vol] 0.20 mg/dL 0.00-1.30 [facility] Brain/Head without Contrasto n 08-16-2024 Brain/Head without Contrast Normal [facility] CBC W/Diff, Automatedon 05 Absolute Lymph 1.46 X10 3/uL Normal 0.83-4.51 [facility] Comment on above: Performed By: #### L 100.0100, L500.4050 ####[facility] [address] [place], [address] Absolute Neut 4.0 X10 3/uL Normal 2.0-7.7 [facility] Comment on above: Performed By: #### L 100.0100, L500.4050 ####[facility] [address] [place], [address] Basophils/100 WBC (Bld) 1.5 % High 0-1 [facility] Comment on above: Performed By: #### L 100.0100, L500.4050 ####[facility] [address] [place], [address] Eosinophils/100 WBC (Bld) 1.5 % Normal 0-5 [facility] Comment on above: Performed By: #### L 100.0100, L500.4050 ####[facility] [address] [place], [address] Erythrocyte distribution width (RBC) [Ratio] 12.9 % Normal 11.6-14.6 [facility] Comment on above: Performed By: #### L 100.0100, L500.4050 ####[facility] [address] [place], [address] Hematocrit (Bld) [Volume fraction] 40.1 % Normal 37-47 [facility] Comment on above: Performed By: #### L 100.0100, L500.4050 ####[facility] [address] [place], [address] Hemoglobin (Bld) [Mass/Vol] 13.0 g/dL Normal 12.0-15.0 [facility] Comment on above: Performed By: #### L 100.0100, L500.4050 ####[facility] [address] [place], [address] IG% 0.200 Normal 0.0-0.9 [facility] Comment on above: Result Comment: IG% - Immature Granulocytes (promyelocytes, myelocytes andmetamyelocytes) > 1% indicates that a LEFT SHIFT is Present. Performed By: #### L 100.0100, L500.4050 ####[facility] [address] [place], [address] Lymphocytes/100 WBC (Bld) 23.7 % Normal 19-41 [facility] Comment on above: Performed By: #### L 100.0100, L500.4050 ####[facility] [address] [place], [address] MCH (RBC) [Entitic mass] 31.3 pg Normal 27.0-32.0 [facility] Comment on above: Performed By: #### L 100.0100, L500.4050 ####[facility] [address] [place], [address] MCHC (RBC) [Mass/Vol] 32.4 g/dL Normal 32-36 [facility] Comment on above: Performed By: #### L 100.0100, L500.4050 ####[facility] [address] [place], [address] MCV (RBC) [Entitic vol] 96.4 fL Normal 81-99 [facility] Comment on above: Performed By: #### L 100.0100, L500.4050 ####[facility] [address] [place], [address] Monocytes/100 WBC (Bld) 8.9 % Normal 0-10 [facility] Comment on above: Performed By: #### L 100.0100, L500.4050 ####[facility] [address] [place], [address] Neutrophils/100 WBC (Bld) 64.2 % Normal 47-70 [facility] Comment on above: Performed By: #### L 100.0100, L500.4050 ####[facility] [address] [place], [address] Nucleated RBC (Bld) [#/Vol] 0 10*3/uL Normal 0-5 [facility] Comment on above: Performed By: #### L 100.0100, L500.4050 ####[facility] [address] [place], [address] Platelet mean volume (Bld) [Entitic vol] 9.0 fL Normal 6.2-12.0 [facility] Comment on above: Performed By: #### L 100.0100, L500.4050 ####[facility] [address] [place], [address] Platelets (Bld) [#/Vol] 277 10*3/uL Normal 150-450 [facility] Comment on above: Performed By: #### L 100.0100, L500.4050 ####[facility] [address] [place], [address] RBC (Bld) [#/Vol] 4.16 10*6/uL Low 4.2-5.4 [facility] Comment on above: Performed By: #### L 100.0100, L500.4050 ####[facility] [address] [place], [address] RDW SD 45.6 fl High 35.1-43.9 [facility] Comment on above: Performed By: #### L 100.0100, L500.4050 ####[facility] [address] [place], [address] WBC (Bld) [#/Vol] 6.2 10*3/uL Normal 4.4-11.0 [facility] Comment on above: Performed By: #### L 100.0100, L500.4050 ####[facility] [address] [place], [address] Carbon dioxide, total [Moles /volume] in Central venous bloodOrdered By: Ricki Reyes on 08-16-2024 CO2 [Moles/Vol] 26.3 mmol/L 21.0-32.0 [facility] Chest PA and Lateralon 08-16 Chest PA and Lateral Normal [facility] Chloride assayOrdered By: Madhu Reyes on 08-16-2024 Chloride [Moles/Vol] 105 mmol/L 98-108 [facility] Comprehensive Metabolic Prof ilon 08-16-2024 Albumin [Mass/Vol] 4.2 g/dL Normal 3.4-4.8 [facility] Comment on above: Performed By: #### L 100.0100, L500.4050 ####[facility] [address] [place], [address] Albumin/Globulin [Mass ratio] 1.4 {ratio} Normal 0.9-2.4 [facility] Comment on above: Performed By: #### L 100.0100, L500.4050 ####[facility] [address] [place], [address] ALK PHOS 80 U/L Normal 35-104 [facility] Comment on above: Performed By: #### L 100.0100, L500.4050 ####[facility] [address] [place], [address] ALT [Catalytic activity/Vol] 21 U/L Normal <=34 [facility] Comment on above: Performed By: #### L 100.0100, L500.4050 ####[facility] [address] [place], [address] AST [Catalytic activity/Vol] 29 U/L Normal <=31 [facility] Comment on above: Performed By: #### L 100.0100, L500.4050 ####[facility] [address] [place], [address] Bilirubin [Mass/Vol] 0.20 mg/dL Normal 0.00-1.30 [facility] Comment on above: Performed By: #### L 100.0100, L500.4050 ####[facility] [address] [place], [address] BUN/CRE 17.0 RATIO Normal 10-20 [facility] Comment on above: Performed By: #### L 100.0100, L500.4050 ####[facility] [address] [place], [address] Calcium [Mass/Vol] 9.9 mg/dL Normal 7.6-11.0 [facility] Comment on above: Performed By: #### L 100.0100, L500.4050 ####[facility] [address] [place], [address] Chloride [Moles/Vol] 105 mmol/L Normal 98-108 [facility] Comment on above: Performed By: #### L 100.0100, L500.4050 ####[facility] [address] [place], [address] CO2 [Moles/Vol] 26.3 mmol/L Normal 21.0-32.0 [facility] Comment on above: Performed By: #### L 100.0100, L500.4050 ####[facility] [address] [place], [address] Creatinine [Mass/Vol] 1.00 mg/dL Normal 0.70-1.20 [facility] Comment on above: Performed By: #### L 100.0100, L500.4050 ####[facility] [address] [place], [address] ECRCL 29.01 ml/min Low 50-250 [facility] Comment on above: Performed By: #### L 100.0100, L500.4050 ####[facility] [address] [place], [address] GAP 10 Normal 5-15 [facility] Comment on above: Performed By: #### L 100.0100, L500.4050 ####[facility] [address] [place], [address] GFR/1.73 sq M.predicted among non-blacks MDRD (S/P/Bld) [Vol rate/Area] 55 mL/min/{1.73_m2} Low >60 [facility] Comment on above: Result Comment: mL/m in/1.73m2 CKD-EPI Creatinine Equation (2020) Performed By: #### L 100.0100, L500.4050 ####[facility] [address] [place], [address] Globulin (S) [Mass/Vol] 3.0 g/dL Normal 2.2-4.2 [facility] Comment on above: Performed By: #### L 100.0100, L500.4050 ####[facility] [address] [place], [address] Glucose [Mass/Vol] 106 mg/dL High 70-99 [facility] Comment on above: Performed By: #### L 100.0100, L500.4050 ####[facility] [address] [place], [address] Potassium [Moles/Vol] 4.5 mmol/L Normal 3.3-5.1 [facility] Comment on above: Performed By: #### L 100.0100, L500.4050 ####[facility] [address] [place], [address] Sodium [Moles/Vol] 141 mmol/L Normal 133-145 [facility] Comment on above: Performed By: #### L 100.0100, L500.4050 ####[facility] [address] [place], [address] T PROT 7.2 g/dL Normal 5.9-8.4 [facility] Comment on above: Performed By: #### L 100.0100, L500.4050 ####[facility] [address] [place], [address] Urea nitrogen [Mass/Vol] 17 mg/dL Normal 4-19 [facility] Comment on above: Performed By: #### L 100.0100, L500.4050 ####[facility] [address] [place], [address] Emergency Department Summary on 08-16-2024 Emergency Department Summary Normal [facility] Eosinophil percentageOrdered By: Ricki Reyes on 08-16-2024 Eosinophils/100 WBC (Bld) 1.5 % 0-5 [facility] Erythrocyte distribution wid th ratioOrdered By: Ricki Reyes on 08-16-2024 Erythrocyte distribution width (RBC) [Ratio] 12.9 % 11.6-14.6 [facility] Erythrocyte distribution wid th standard deviationOrdered By: Ricki Reyes on 08-16-2024 Erythrocyte distribution width (RBC) [Ratio] 45.6 fl High 35.1-43.9 [facility] Glomerular filtration rate ( GFR) estimation/1.73 sq m using serum, plasma, or whole bOrdered By: Ricki Reyes on 08-16-2024 GFR/1.73 sq M.predicted among non-blacks MDRD (S/P/Bld) [Vol rate/Area] 55 mL/min/{1.73_m2} Low >60 [facility] Comment on above: mL/min/1.73m2 CKD-EP I Creatinine Equation (2020) Hematocrit Auto (Bld) [Volum e fraction]Ordered By: Ricki Reyes on 08-16-2024 Hematocrit (Bld) [Volume fraction] 40.1 % 37-47 [facility] Hemoglobin measurementOrdere d By: Ricki Reyes on 08-16-2024 Hemoglobin (Bld) [Mass/Vol] 13.0 g/dL 12.0-15.0 [facility] Immature granulocytes/100 WB C Auto (Bld)Ordered By: Ricki Reyes on 08-16-2024 Immature granulocytes/100 WBC (Bld) 0.200 % 0.0-0.9 [facility] Comment on above: IG% - Immature Granu locytes (promyelocytes, myelocytes and metamyelocytes) > 1% indicates that a LEFT SHIFT is Present. Ketones Test strip Ql (U)Ord ered By: Ricki Reyes on 08-16-2024 Ketones Ql (U) Negative Negative [facility] Laboratory - Chemistry and C hemistry - challengeOrdered By: Ricki Reyes on 08-16-2024 AST [Catalytic activity/Vol] 29 U/L <32 [facility] MCV (mean corpuscular volume ) determinationOrdered By: Ricki Reyes on 08-16-2024 MCV (RBC) [Entitic vol] 96.4 fL 81-99 [facility] Mean corpuscular hemoglobin (MCH) determinationOrdered By: Ricki Reyes on 08-16-2024 MCH (RBC) [Entitic mass] 31.3 pg 27.0-32.0 [facility] Mean corpuscular hemoglobin concentration (MCHC) determinationOrdered By: Ricki Reyes on 08-16-2024 MCHC (RBC) [Mass/Vol] 32.4 g/dL 32-36 [facility] Mean platelet volume determi nationOrdered By: Ricki Reyes on 08-16-2024 Platelet mean volume (Bld) [Entitic vol] 9.0 fL 6.2-12.0 [facility] Microscopic analysis of urin e for red blood cells (RBC)Ordered By: Ricki Reyes on 08-16-2024 Microscopic analysis of urine for red blood cells (RBC) 0-5 SEEN /hpf 0-5 [facility] Monocyte percentageOrdered B y: Ricki Reyes on 08-16-2024 Monocytes/100 WBC (Bld) 8.9 % 0-10 [facility] Mucus LM Ql (Urine sed)Order ed By: Ricki Reyes on 08-16-2024 Mucus Ql (Urine sed) 0 SEEN /hpf [facility] Neutrophil percentageOrdered By: Ricki Reyes on 08-16-2024 Neutrophils/100 WBC (Bld) 64.2 % 47-70 [facility] Nitrite Test strip Ql (U)Ord ered By: Ricki Reyes on 08-16-2024 Nitrite Ql (U) Negative Negative [facility] Nucleated red blood cell per centageOrdered By: Ricki Reyes on 08-16-2024 Nucleated RBC/100 WBC (Bld) [Ratio] 0 % 0-5 [facility] Platelet countOrdered By: Madhu Reyes on 08-16-2024 Platelets (Bld) [#/Vol] 277 10*3/uL 150-450 [facility] Potassium measurement (mass/ volume)Ordered By: Ricki Reyes on 08-16-2024 Potassium (Unsp spec) [Mass/Vol] 4.5 mmol/L 3.3-5.1 [facility] Protein Test strip Ql (U)Ord ered By: Ricki Reyes on 08-16-2024 Protein Ql (U) 15 mg/dl High Negative [facility] RBC Auto (Bld) [#/Vol]Ordere d By: Ricki Reyes on 08-16-2024 RBC (Bld) [#/Vol] 4.16 10*6/uL Low 4.2-5.4 [facility] Serum creatinine measurement (mass/volume)Ordered By: Ricki Reyes on 08-16-2024 Creatinine [Mass/Vol] 1.00 mg/dL 0.70-1.20 [facility] Serum globulin measurementOr dered By: Ricki Reyes on 08-16-2024 Globulin (S) [Mass/Vol] 3.0 g/dL 2.2-4.2 [facility] Serum glucose measurement (m ass/volume)Ordered By: Ricki Reyes on 08-16-2024 Glucose [Mass/Vol] 106 mg/dL High 70-99 [facility] Serum or plasma alanine tierney otransferase (ALT) measurementOrdered By: Ricki Reyes on 08-16-2024 ALT [Catalytic activity/Vol] 21 U/L <35 [facility] Serum or plasma albumin camilo urement (mass/volume)Ordered By: Ricki Reyes on 08-16-2024 Albumin [Mass/Vol] 4.2 g/dL 3.4-4.8 [facility] Serum or plasma albumin/glob ulin mass ratioOrdered By: Ricki Reyes on 08-16-2024 Albumin/Globulin [Mass ratio] 1.4 {ratio} 0.9-2.4 [facility] Serum or plasma alkaline jordan sphatase measurementOrdered By: Ricki Reyes on 08-16-2024 ALP [Catalytic activity/Vol] 80 U/L 35-104 [facility] Serum or plasma calcium camilo urement (mass/volume)Ordered By: Ricki Reyes on 08-16-2024 Calcium [Mass/Vol] 9.9 mg/dL 7.6-11.0 [facility] Serum or plasma urea nitroge n measurement (mass/volume)Ordered By: Ricki Reyes on 08-16-2024 Urea nitrogen [Mass/Vol] 17 mg/dL 4-19 [facility] Sodium levelOrdered By: Ricki Reyes on 08-16-2024 Sodium [Moles/Vol] 141 mmol/L 133-145 [facility] Squamous epithelial cells de tection in urine sediment by light microscopyOrdered By: Ricki Reyes on 08-16-2024 Epithelial cells.squamous LM Ql (Urine sed) 0-5 SEEN /hpf 5-10 [facility] Total proteinOrdered By: Juliocesar Reyes on 08-16-2024 Protein [Mass/Vol] 7.2 g/dL 5.9-8.4 [facility] Urinalysis, Completeon 08-16 EPI,SQUAMOUS 0-5 SEEN Normal 5-10 [facility] Comment on above: Order Comment: CLEAN CATCH Performed By: #### L 400.0001 ####[facility] [id number] [place], [address] RBC 0-5 SEEN Normal 0-5 [facility] Comment on above: Order Comment: CLEAN CATCH Performed By: #### L 400.0001 ####[facility] [id number] [place], [place], [id number] WBC 0-5 SEEN Normal 0-5 [facility] Comment on above: Order Comment: CLEAN CATCH Performed By: #### L 400.0001 ####[facility] [id number] [place], [address] BACTERIA 0 SEEN Normal None Seen [facility] Comment on above: Order Comment: CLEAN CATCH Performed By: #### L 400.0001 ####[facility] [id number] [place], [address] Mucus Ql (Urine sed) 0 SEEN Normal [facility] Comment on above: Order Comment: CLEAN CATCH Performed By: #### L 400.0001 ####[facility] [id number] [place], [place], [id number] Urine clarityOrdered By: Juliocesar Reyes on 08-16-2024 Clarity (U) Clear Clear [facility] Urine color determinationOrd ered By: Ricki Reyes on 08-16-2024 Color (U) Straw Yellow [facility] Urine glucose detectionOrder ed By: Ricki Reyes on 08-16-2024 Glucose Ql (U) Normal mg/dl Normal [facility] Urine leukocyte esterase det ection by dipstickOrdered By: Ricki Reyes on 08-16-2024 Leukocyte esterase Test strip Ql (U) 25 /ul High Negative [facility] Urine pHOrdered By: Ricki marcano on 08-16-2024 pH (U) 8.0 [pH] 5.0 - 8.0 [facility] Urine sediment bacteria coun t by microscopy (number/high power field)Ordered By: Ricki Reyes on 08-16-2024 Bacteria LM.HPF (Urine sed) [#/Area] 0 /[HPF] None Seen [facility] Urine specific gravity measu rementOrdered By: Ricki Reyes on 08-16-2024 Specific gravity (U) [Rel density] 1.010 1.002-1.03 0 [facility] Urine urobilinogen measureme ntOrdered By: Ricki Reyes on 08-16-2024 Urobilinogen Ql (U) Normal mg/dl Normal [facility] White blood cell (WBC) count Ordered By: Ricki Reyes on 08-16-2024 WBC (Bld) [#/Vol] 6.2 10*3/uL 4.4-11.0 [facility] White blood cell countOrdere d By: Ricki Reyes on 08-16-2024 White blood cell count 0-5 SEEN /hpf 0-5 [facility] 25(OH)D3 SerPl-mCncon 2024 25-hydroxyvitamin D3 [Mass/Vol] 60.1 ng/mL Normal 31.0-80.0 [facility] Comment on above: Order Comment: Speci men Type: BLOOD SPECIMENOrdering Facility: [facility] Address: [address] [place] [address] Result Comment: Clas sification of 25 [place] Vitamin D status: Deficiency/Insufficiency: < or = 30 ng/ml. Sufficiency/Optimal Levels: 31-80 ng/mL Toxicity: > 100 ng/mL. Test performed by chemiluminescent immunoassay. Performed By: #### 1 989-3 ####[facility] LABIA [id number] [place] [address] [place] CBC W Auto Differential pane l (Bld)on 04-26-2024 Basophils (Bld) [#/Vol] 0.08 10*3/uL Normal <0.11 [facility] Comment on above: Order Comment: Speci men Type: BLOOD SPECIMENOrdering Facility: [facility] Address: [address] [place] [address] Performed By: #### 5 7021-8 ####[facility] LABCLIA [id number] [place] [address] [place] Basophils/100 WBC (Bld) 1.4 % Normal [facility] Comment on above: Order Comment: Speci men Type: BLOOD SPECIMENOrdering Facility: [facility] Address: [address] [place] [address] Performed By: #### 5 7021-8 ####[facility] LABIA [id number] [place] [address] [place] Differential cell count method Nom (Bld) Auto Normal [facility] Comment on above: Order Comment: Speci men Type: BLOOD SPECIMENOrdering Facility: [facility] Address: [address] [place] [address] Performed By: #### 5 7021-8 ####[facility] LABCLIA [id number] [place] [address] [place] Eosinophils (Bld) [#/Vol] 0.18 10*3/uL Normal <0.46 [facility] Comment on above: Order Comment: Speci men Type: BLOOD SPECIMENOrdering Facility: [facility] Address: [address] [place] [address] Performed By: #### 5 7021-8 ####[facility] LABCLIA [id number] [place] [address] [place] Eosinophils/100 WBC (Bld) 3.2 % Normal [facility] Comment on above: Order Comment: Speci men Type: BLOOD SPECIMENOrdering Facility: [facility] Address: [address] [place] [address] Performed By: #### 5 7021-8 ####[facility] LABCLIA [id number] [place] [address] [place] Erythrocyte distribution width (RBC) [Ratio] 12.7 % Normal 11.5-15.0 [facility] Comment on above: Order Comment: Speci men Type: BLOOD SPECIMENOrdering Facility: [facility] Address: [address] [place] [address] Performed By: #### 5 7021-8 ####[facility] LABCLIA [id number] [place] [address] [place] Hematocrit (Bld) [Volume fraction] 40.4 % Normal 36.0-46.0 [facility] Comment on above: Order Comment: Speci men Type: BLOOD SPECIMENOrdering Facility: [facility] Address: [address] [place] [address] Performed By: #### 5 7021-8 ####[facility] LABCLIA [id number] [place] [address] [place] Hemoglobin (Bld) [Mass/Vol] 12.6 g/dL Normal 11.5-15.5 [facility] Comment on above: Order Comment: Speci men Type: BLOOD SPECIMENOrdering Facility: [facility] Address: [address] [place] [address] Performed By: #### 5 7021-8 ####[facility] LABCLIA [id number] [place] [address] [place] Immature granulocytes (Bld) [#/Vol] 10*3/uL Normal <0.10 [facility] Comment on above: Order Comment: Speci men Type: BLOOD SPECIMENOrdering Facility: [facility] Address: [address] [place] [address] Performed By: #### 5 7021-8 ####[facility] LABIA [id number] [place] [address] [place] Immature granulocytes/100 WBC (Bld) 0.4 % Normal [facility] Comment on above: Order Comment: Speci men Type: BLOOD SPECIMENOrdering Facility: [facility] Address: [address] [place] [address] Performed By: #### 5 7021-8 ####[facility] LABCLIA [id number] [place] [address] [place] Lymphocytes (Bld) [#/Vol] 1.07 10*3/uL Normal 1.00-4.00 [facility] Comment on above: Order Comment: Speci men Type: BLOOD SPECIMENOrdering Facility: [facility] Address: [address] [place] [address] Performed By: #### 5 7021-8 ####[facility] LABCLIA [id number] [place] [address] [place] Lymphocytes/100 WBC (Bld) 19.0 % Normal [facility] Comment on above: Order Comment: Speci men Type: BLOOD SPECIMENOrdering Facility: [facility] Address: [address] [place] [address] Performed By: #### 5 7021-8 ####[facility] LABCLIA [id number] [place] [address] [place] MCH (RBC) [Entitic mass] 31.0 pg Normal 26.0-34.0 [facility] Comment on above: Order Comment: Speci men Type: BLOOD SPECIMENOrdering Facility: [facility] Address: [address] [place] [address] Performed By: #### 5 7021-8 ####[facility] LABCLIA [id number] [place] [address] [place] MCHC (RBC) [Mass/Vol] 31.2 g/dL Normal 30.5-36.0 [facility] Comment on above: Order Comment: Speci men Type: BLOOD SPECIMENOrdering Facility: [facility] Address: [address] [place] [address] Performed By: #### 5 7021-8 ####[facility] LABIA [id number] [place] [address] [place] MCV (RBC) [Entitic vol] 99.5 fL Normal 80.0-100.0 [facility] Comment on above: Order Comment: Speci men Type: BLOOD SPECIMENOrdering Facility: [facility] Address: [address] [place] [address] Performed By: #### 5 7021-8 ####[facility] LABCLIA [id number] [place] [address] [place] Monocytes (Bld) [#/Vol] 0.51 10*3/uL Normal <0.87 [facility] Comment on above: Order Comment: Speci men Type: BLOOD SPECIMENOrdering Facility: [facility] Address: [address] [place] [address] Performed By: #### 5 7021-8 ####[facility] LABCLIA [id number] [place] [address] [place] Monocytes/100 WBC (Bld) 9.1 % Normal [facility] Comment on above: Order Comment: Speci men Type: BLOOD SPECIMENOrdering Facility: [facility] Address: [address] [place] [address] Performed By: #### 5 7021-8 ####[facility] LABCLIA [id number] [place] [address] [place] Neutrophils (Bld) [#/Vol] 3.77 10*3/uL Normal 1.45-7.50 [facility] Comment on above: Order Comment: Speci men Type: BLOOD SPECIMENOrdering Facility: [facility] Address: [address] [place] [address] Performed By: #### 5 7021-8 ####[facility] LABCLIA [id number] [place] [address] [place] Neutrophils/100 WBC (Bld) 66.9 % Normal [facility] Comment on above: Order Comment: Speci men Type: BLOOD SPECIMENOrdering Facility: [facility] Address: [address] [place] [address] Performed By: #### 5 7021-8 ####[facility] LABCLIA [id number] [place] [address] [place] Nucleated RBC (Bld) [#/Vol] 10*3/uL Normal <0.01 [facility] Comment on above: Order Comment: Speci men Type: BLOOD SPECIMENOrdering Facility: [facility] Address: [address] [place] [address] Performed By: #### 5 7021-8 ####[facility] LABCLIA [id number] [place] [address] [place] Nucleated RBC/100 WBC (Bld) [Ratio] 0.0 /100 WBC Normal [facility] Comment on above: Order Comment: Speci men Type: BLOOD SPECIMENOrdering Facility: [facility] Address: [address] [place] [address] Performed By: #### 5 7021-8 ####[facility] LABCLIA [id number] [place] [address] [place] Platelet mean volume (Bld) [Entitic vol] 9.7 fL Normal 9.0-12.7 [facility] Comment on above: Order Comment: Speci men Type: BLOOD SPECIMENOrdering Facility: [facility] Address: [address] [place] [address] Performed By: #### 5 7021-8 ####[facility] LABCLIA [id number] [place] [address] [place] Platelets (Bld) [#/Vol] 348 10*3/uL Normal 150-400 [facility] Comment on above: Order Comment: Speci men Type: BLOOD SPECIMENOrdering Facility: [facility] Address: [address] [place] [address] Performed By: #### 5 7021-8 ####[facility] LABIA [id number] [place] [address] [place] RBC (Bld) [#/Vol] 4.06 10*6/uL Normal 3.90-5.20 [facility] Comment on above: Order Comment: Speci men Type: BLOOD SPECIMENOrdering Facility: [facility] Address: [address] [place] [address] Performed By: #### 5 7021-8 ####[facility] LABCLIA [id number] [place] [address] [place] WBC (Bld) [#/Vol] 5.63 10*3/uL Normal 3.70-11.00 [facility] Comment on above: Order Comment: Speci men Type: BLOOD SPECIMENOrdering Facility: [facility] Address: [address] [place] [address] Performed By: #### 5 7021-8 ####[facility] LABCLIA [id number] [address] [id number] [address] [place] CNOVon 04-26-2024 CNOV Office Visit (FAMPWS ) BEHZAD HAY ([id number]) 1940 F Date Time Provider Department 04/26/24 10:00 AM [facility] today, we recorded the following information about you: Pulse Blood pressure Weight 62/minute 142/78 54 kg Tasha Deutsch, POURER.DIRECTOR HR COMMUNICATIONS 04/26/2024 10:53 AM Signed This is a [...] hernia History of esophag[facility]astroduoden[facility] (EGD) [facility] HTN (hypertension) Hyperlipidemia, mixed [...] Bactrim [Sulfamethoxazole-Trimethop rim], Macrobid [Nitrofurantoin Monohyd/M-Cryst], and Oobgfjx-Syx-Lll Reductase Inhibitors MEDICATIONS Current Outpatient Medications Medication [...] Brother age 76 other (CVA) Brother other (ART LIBRARIAN shunt) Brother Hypertension Sister Diabetes Sister age [...] or shortne (more content not included)... Normal [facility] 04-26-2024 [facility] Telephone ([facility]) BHARTIBEHZAD Lugo ([id number]) 1940 F Date Time Provider Department 04/26/24 TASHA DEUTSCH [facility] During your visit today, we recorded the following information about you: Tasha Deutsch APRN.[facility] 04/26/2024 4:40 PM Signed Please let [...] Rash MACROBID (NITROFURANTOIN MONOHYD/*09/25/2018 2 - Rash JBAGZOA-EAL-ZBP REDUCTASE INHIBIT*10/06/2014 5 - Intolerance Date Reviewed: 04/26/2024 Reviewed by: Tasha Deutsch APRN.DIRECTOR HR COMMUNICATIONS - Fully Assessed Primary Visit Diagnosis:Recurrent UTI [...] osteoarthritis of right hip [M16.11] 02/27/2017 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 (HCC) [UJP1095] 07/28/2017 07/06/2018 Collagenous colitis [K52.831] 12/21/2018 IBS [...] Status:Closed by WINSOME BUTLER on 04/26/24 Normal [facility] metabolic 2000 panelon 04-26-2024 Albumin [Mass/Vol] 4.4 g/dL Normal 3.9-4.9 [facility] Comment on above: Order Comment: Speci men Type: BLOOD SPECIMEN Ordering Facility: [facility] Address: [address] [id number] Performed By: #### 2 132-9, 09236-2 #### [facility] LAB CLIA [id number] [address] [place], [place] [id number] [place] ALP [Catalytic activity/Vol] 95 U/L Normal 34-123 [facility] Comment on above: Order Comment: Speci men Type: BLOOD SPECIMEN Ordering Facility: [facility] Address: [address] [place] [address] Performed By: #### 2 132-9, 62812-7 #### [facility] LAB CLIA [id number] [address] [place] [address] [place] ALT [Catalytic activity/Vol] 17 U/L Normal 7-38 [facility] Comment on above: Order Comment: Speci men Type: BLOOD SPECIMEN Ordering Facility: [facility] Address: [address] [place] [address] Performed By: #### 2 132-9, 86848-3 #### [facility] LAB CLIA [id number] [address] [place] [address] [place] Anion gap [Moles/Vol] 13 mmol/L Normal 8-15 [facility] Comment on above: Order Comment: Speci men Type: BLOOD SPECIMEN Ordering Facility: [facility] Address: [address] [id number] Performed By: #### 2 132-9, 10846-0 #### [facility] LAB CLIA [id number] [address] [place] [address] [place] AST [Catalytic activity/Vol] 24 U/L Normal 13-35 [facility] Comment on above: Order Comment: Speci men Type: BLOOD SPECIMEN Ordering Facility: [facility] Address: [address] [place] [address] Performed By: #### 2 132-9, #### [facility] LAB CLIA [id number] [address] [place] [address] [place] Bilirubin [Mass/Vol] 0.3 mg/dL Normal 0.2-1.3 [facility] Comment on above: Order Comment: Speci men Type: BLOOD SPECIMEN Ordering Facility: [facility] Address: [address] [place] [address] Performed By: #### 2 132-9, #### [facility] LAB CLIA [id number] [address] [place] [address] [place] Calcium [Mass/Vol] 10.4 mg/dL High 8.5-10.2 [facility] Comment on above: Order Comment: Speci men Type: BLOOD SPECIMEN Ordering Facility: [facility] Address: [address] [place] [address] Performed By: #### 2 132-9, #### [facility] LAB CLIA [id number] [address] [place] [address] [place] Chloride [Moles/Vol] 101 mmol/L Normal 98-107 [facility] Comment on above: Order Comment: Speci men Type: BLOOD SPECIMEN Ordering Facility: [facility] Address: [address] [place] [address] Performed By: #### 2 132-9, #### [facility] LAB CLIA [id number] [address] [place] [address] [place] CO2 [Moles/Vol] 26 mmol/L Normal 22-30 [facility] Comment on above: Order Comment: Speci men Type: BLOOD SPECIMEN Ordering Facility: [facility] Address: [address] [place] [address] Performed By: #### 2 132-9, #### [facility] LAB CLIA [id number] [address] [place] [address] [place] Creatinine [Mass/Vol] 0.87 mg/dL Normal 0.58-0.96 [facility] Comment on above: Order Comment: Cheri jimenez Type: BLOOD SPECIMEN Ordering Facility: [facility] Address: [address] [place] [address] Performed By: #### 2 132-9, 50431-1 #### [facility] CLIA [id number] [address] [place] [address] [facility] [place] Creatinine and Glomerular filtration rate.predicted panel (S/P/Bld) 65 mL/min/1.73m??? Normal >=60 [facility] Comment on above: Order Comment: Cheri jimenez Type: BLOOD SPECIMEN Ordering Facility: [facility] Address: [address] [place] [address] Result Comment: Pattie mated Glomerular Filtration Rate [...] actual GFR. Performed By: #### 2 132-9, 07578-0 #### [facility] CLIA [id number] [address] [place] [address] [place] Glucose [Mass/Vol] 112 mg/dL High 74-99 [facility] Comment on above: Order Comment: Cheri jimenez Type: BLOOD SPECIMEN Ordering Facility: [facility] Address: [address] [place] [address] Result Comment: The [place] [employer] (ADA) provides guidance for cutoff [...] Standards of Medical Care in Diabetes 2016, [place] [employer]. Diabetes Care. 2016.39(Suppl 1). Performed By: #### 2 132-9, 00932-3 #### [facility] CLIA [id number] [address] [place] [address] [place] Potassium [Moles/Vol] 5.1 mmol/L Normal 3.7-5.1 [facility] Comment on above: Order Comment: Speci men Type: BLOOD SPECIMEN Ordering Facility: [facility] Address: [address] [place] [address] Performed By: #### 2 132-9, 26169-4 #### [facility] CLIA [id number] [address] [place] [address] [place] Protein [Mass/Vol] 7.1 g/dL Normal 6.3-8.0 [facility] Comment on above: Order Comment: Speci men Type: BLOOD SPECIMEN Ordering Facility: [facility] Address: [address] [place] [address] Performed By: #### 2 132-9, #### [facility] CLIA [id number] [address] [place] [address] [place] Sodium [Moles/Vol] 140 mmol/L Normal 136-144 [facility] Comment on above: Order Comment: Speci men Type: BLOOD SPECIMEN Ordering Facility: [facility] Address: [address] [place] [address] Performed By: #### 2 132-9, 19127-2 #### [facility] CLIA [id number] [address] [place] [address] [place] Urea nitrogen [Mass/Vol] 16 mg/dL Normal 7-21 [facility] Comment on above: Order Comment: Speci men Type: BLOOD SPECIMEN Ordering Facility: [facility] Address: [address] [place] [address] Performed By: #### 2 132-9, 46409-0 #### [facility] CLIA [id number] [address] [place] [address] [place] Ferritin SerPl-mCncon 2024 Ferritin [Mass/Vol] 64.4 ng/mL Normal 14.7-205.1 [facility] [facility] Comment on above: Order Comment: Speci men Type: BLOOD SPECIMENOrdering Facility: [facility] Address: [address] [place] [address] Performed By: #### 1 9123-9, 41846-7, 2276-4, LIPNF ####[facility] LABCLIA [id number] [place] [address] [place] HbA1c (Bld)on 04-26-2024 Average glucose Estimated from glycated hemoglobin (Bld) [Mass/Vol] 105 mg/dL Normal [facility] Comment on above: Order Comment: Cheri jimenez Type: BLOOD SPECIMEN Ordering Facility: [facility] Address: [address] [place] [address] Result Comment: eAG: (Estimated average glucose) is a calculated value from HgbA1c and is physician representative of the average blood glucose level in the last 2-3 month period. Performed By: #### 5 5454-3 #### [facility] CLIA [id number] [address] [place] [address] [place] HbA1c (Bld) [Mass fraction] 5.3 % Normal 4.3-5.6 [facility] Comment on above: Order Comment: Patriciai [facility] Type: BLOOD SPECIMEN Ordering Facility: [facility] Address: [address] [place] [address] Result Comment: Amer ican Diabetes Association guidelines indicate that patients with HgbA1c in the range 5.7-6.4% are at increased risk for development of diabetes, and intervention by lifestyle modification may be beneficial. HgbA1c greater or equal to 6.5% is considered diagnostic of diabetes. Performed By: #### 5 5454-3 #### [facility] CLIA [id number] [address] [place] [address] [place] Iron and Iron binding capaci ty panelon 04-26-2024 Iron [Mass/Vol] 80 ug/dL Normal 41-186 [facility] Comment on above: Order Comment: Speci men Type: BLOOD SPECIMENOrdering Facility: [facility] Address: [address] [place] [address] Performed By: #### 1 9123-9, 52067-1, 2276-4, LIPNF ####[facility] LABCLIA [id number] [place] [address] [place] Iron binding capacity [Mass/Vol] 333 ug/dL Normal 232-386 [facility] Comment on above: Order Comment: Speci men Type: BLOOD SPECIMENOrdering Facility: [facility] Address: [address] [place] [address] Performed By: #### 1 9123-9, 29077-7, 6-4, LIPNF ####[facility] LABIA [id number] [place] [address] [place] Iron/TIBC [Molar ratio] 24.0 % Normal 15.0-57.0 [facility] Comment on above: Order Comment: Speci men Type: BLOOD SPECIMENOrdering Facility: [facility] Address: [address] [place] [address] Performed By: #### 1 9123-9, 14705-7, 6-4, LIPNF ####[facility] LABCLIA [id number] [place] [id number] [place] LIPID PANEL, NONFASTINGon Cholesterol [Mass/Vol] 238 mg/dL High <200 [facility] Comment on above: Order Comment: Speci men Type: BLOOD SPECIMENOrdering Facility: [facility] Address: [address] [place] [address] Result Comment: <200 mg/dL, Desirable 200-239 mg/dL, Borderline high >239 mg/dL, High Performed By: #### 1 9123-9, 41702-3, 6-4, LIPNF ####[facility] LABCLIA [id number] [place] [address] [place] HDL CHOLESTEROL, NF 78 mg/dL Normal >39 [facility] Comment on above: Order Comment: Speci men Type: BLOOD SPECIMENOrdering Facility: [facility] Address: [address] [place] [address] Result Comment: 40-5 9 mg/dL, Acceptable >59 mg/dL, High: Negative risk factor for coronary heart disease <40 mg/dL, Low: Positive risk factor for coronary heart disease Performed By: #### 1 9123-9, 82312-6, 6-4, LIPNF ####[facility] LABCLIA [id number] [address] OF [facility] LDL CHOLESTEROL, NF 143 mg/dL High <100 [facility] Comment on above: Order Comment: Speci men Type: BLOOD SPECIMENOrdering Facility: [facility] Address: [address] [place] [address] Result Comment: <100 mg/dL, Optimal 100-129 mg/dL, Near optimal/above optimal 130-159 mg/dL, Borderline high 160-189 mg/dL, High >189 mg/dL, Very high Secondary prevention optimal LDL Cholesterol levels are recommended to be < 70 mg/dL Performed By: #### 1 9123-9, 97331-3, 2275-4, LIPNF ####[facility] LABCLIA [id number] [place] [address] [place] LDL/HDL RATIO, NF 1.83 mg/dL Normal <2.54 [facility] Comment on above: Order Comment: Speci men Type: BLOOD SPECIMENOrdering Facility: [facility] Address: [address] [place] [address] Result Comment: Refe rence: 1. National Cholesterol Education Program ATP III Guideline At-A-Glance Quick Desk Reference: National Heart, Lung, and Blood [place]. National Institutes of Health. 2001: NIH Publication No. 01-3305. 2. An International Atherosclerosis Society position paper: global recommendations for the management of dyslipidemia: executive summary, Atherosclerosis. 2014: 232(2):410-413. Performed By: #### 1 9123-9, 25648-1, 2276-4, LIPNF ####[facility] LABCLIA [id number] [place] [address] [place] NON HDL CHOL, NF 160 mg/dL High <130 [facility] Comment on above: Order Comment: Speci men Type: BLOOD SPECIMENOrdering Facility: [facility] Address: [address] [place] [address] Result Comment: <130 mg/dL, Optimal 130-159 mg/dL, Near optimal/above optimal 160-189 mg/dL, Borderline high 190-219 mg/dL, High >219 mg/dL, Very high Secondary prevention optimal non HDL Cholesterol levels are recommended to be <100 mg/dL Performed By: #### 1 9123-9, 53369-0, 6-4, LIPNF ####[facility] LABCLIA [id number] [place] [address] [place] T CHOL/HDL RATIO NF 3.05 mg/dL Normal <5.10 [facility] Comment on above: Order Comment: Speci men Type: BLOOD SPECIMENOrdering Facility: [facility] Address: [address] [place] [address] Performed By: #### 1 9123-9, 31556-4, 6-4, LIPNF ####[facility] LABCLIA [id number] [place] [address] [place] TRIGLYCERIDES, NF 84 mg/dL Normal <150 [facility] Comment on above: Order Comment: Speci men Type: BLOOD SPECIMENOrdering Facility: [facility] Address: [address] [place] [address] Result Comment: <150 mg/dL, Normal 150-199 mg/dL, Borderline high 200-499 mg/dL, High >499 mg/dL, Very high Performed By: #### 1 9123-9, 71945-2, 2276-4, LIPNF ####[facility] LABCLIA [id number] [place] [address] [place] VLDL CHOLESTEROL, NF 17 mg/dL Normal <30 [facility] Comment on above: Order Comment: Speci men Type: BLOOD SPECIMENOrdering Facility: [facility] Address: [address] [place] [address] Performed By: #### 1 9123-9, 78354-2, 2276-4, LIPNF ####[facility] LABIA [id number] [place] [address] [place] Magnesium SerPl-mCncon 04-26 Magnesium [Mass/Vol] 2.6 mg/dL High 1.7-2.3 [facility] Comment on above: Order Comment: Speci men Type: BLOOD SPECIMENOrdering Facility: [facility] Address: [address] [place] [address] Performed By: #### 1 9123-9, 95826-6, 2276-4, LIPNF ####[facility] LABCLIA [id number] [place] [address] [place] URINALYSIS, REFLEX MICROSCOP ICon 04-26-2024 Bacteria uL uL High Negative uL [facility] Bilirubin Ql (U) Negative Negative [facility] Clarity (Unsp spec) Cloudy Abnormal Clear [facility] Color (U) Yellow Yellow [facility] Epithelial cells LM.HPF (Urine sed) [#/Area] None Seen /HPF [facility] Glucose Test strip (U) [Mass/Vol] Negative Negative [facility] Hemoglobin Ql (U) Trace Abnormal Negative [facility] Hyaline casts (Urine sed) [#/Area] 4-10 /LPF Abnormal 0 /LPF [facility] Interpretation and review of laboratory results Abnormal [facility] Ketones Ql (U) Negative Negative [facility] Leukocyte esterase Test strip Ql (U) 2+ Abnormal Negative [facility] Nitrite Ql (U) Positive Abnormal Negative [facility] pH (U) 6.5 [pH] NINF - 8.5 [facility] Protein (U) [Mass/Vol] Trace Abnormal Negative [facility] RBC LM.HPF (Urine sed) [#/Area] 3-5 /HPF Abnormal 0-2 /HPF [facility] Specific gravity (U) [Rel density] 1.018 1.005 - 1.030 [facility] Urobilinogen Ql (U) 0.2 EU/dL 0.2-1.0 EU/dL [facility] WBC LM.HPF (Urine sed) [#/Area] /[HPF] Abnormal 0-5 /HPF [facility] This test was devvicko ped and its performance characteristics determined by [facility]'s [facility] Pathology and Laboratory Medicine [place] ([facility]). It has not been cleared or approved by the FDA. -[facility] is regulated under CLIA as qualified to perform high-complexity testing. This test is used for clinical purposes. It should not be regarded as investigational or for research. [facility] BACTERIA UL >9821 High Negative [facility] Comment on above: Order Comment: Speci men Type: URINE SPECIMENOrdering Facility: [facility] Address: [address] [place] [address] Performed By: #### L [id number] ####[facility] LABIA [id number] [place] [address] [place] Bilirubin Ql (U) Negative Normal Negative [facility] Comment on above: Order Comment: Speci men Type: URINE SPECIMENOrdering Facility: [facility] Address: [address] [place] [address] Performed By: #### L [id number] ####[facility] LABIA [id number] [place] [address] [place] Clarity (Unsp spec) Cloudy Abnormal Clear [facility] Comment on above: Order Comment: Speci men Type: URINE SPECIMENOrdering Facility: [facility] Address: [address] [place] [address] Performed By: #### L [id number] ####[facility] LABCLIA [id number] [place] [address] [place] Color (U) Yellow Normal Yellow [facility] Comment on above: Order Comment: Speci men Type: URINE SPECIMENOrdering Facility: [facility] Address: [address] [place] [address] Performed By: #### L [id number] ####[facility] LABCLIA [id number] [place] [address] [place] Epithelial cells LM.HPF (Urine sed) [#/Area] None Seen Normal [facility] Comment on above: Order Comment: Speci men Type: URINE SPECIMENOrdering Facility: [facility] Address: [address] [place] [address] Performed By: #### L [id number] ####[facility] LABCLIA [id number] [place] [address] [place] Glucose Test strip (U) [Mass/Vol] Negative Normal Negative [facility] Comment on above: Order Comment: Speci men Type: URINE SPECIMENOrdering Facility: [facility] Address: [address] [place] [address] Performed By: #### L [id number] ####[facility] LABCLIA [id number] [place] [address] [place] Hemoglobin Ql (U) Trace Abnormal Negative [facility] Comment on above: Order Comment: Speci men Type: URINE SPECIMENOrdering Facility: [facility] Address: [address] [place] [address] Performed By: #### L [id number] ####[facility] LABCLIA [id number] [place] [address] [place] Hyaline casts (Urine sed) [#/Area] 4-10 /LPF Abnormal 0 /LPF [facility] Comment on above: Order Comment: Speci men Type: URINE SPECIMENOrdering Facility: [facility] Address: [address] [place] [address] Performed By: #### L [id number] ####[facility] LABCLIA [id number] [place] [address] [place] Ketones Ql (U) Negative Normal Negative [facility] Comment on above: Order Comment: Speci men Type: URINE SPECIMENOrdering Facility: [facility] Address: [address] [place] [address] Performed By: #### L [id number] ####[facility] LABCLIA [id number] [place] [address] [place] Leukocyte esterase Test strip Ql (U) 2+ Abnormal Negative [facility] Comment on above: Order Comment: Speci men Type: URINE SPECIMENOrdering Facility: [facility] Address: [address] [place] [address] Performed By: #### L [id number] ####[facility] LABCLIA [id number] [place] [address] [place] Nitrite Ql (U) Positive Abnormal Negative [facility] Comment on above: Order Comment: Speci men Type: URINE SPECIMENOrdering Facility: [facility] Address: [address] [place] [address] Performed By: #### L [id number] ####[facility] LABCLIA [id number] [place] [address] [place] pH (U) 6.5 [pH] Normal <8.5 [facility] Comment on above: Order Comment: Speci men Type: URINE SPECIMENOrdering Facility: [facility] Address: [address] [place] [address] Performed By: #### L [id number] ####[facility] LABCLIA [id number] [place] [address] [place] Protein (U) [Mass/Vol] Trace Abnormal Negative [facility] Comment on above: Order Comment: Speci men Type: URINE SPECIMENOrdering Facility: [facility] Address: [address] [place] [address] Performed By: #### L [id number] ####[facility] [id number] [place] [address] [place] RBC LM.HPF (Urine sed) [#/Area] 3-5 /HPF Abnormal 0-2 /HPF [facility] Comment on above: Order Comment: Speci men Type: URINE SPECIMENOrdering Facility: [facility] Address: [address] [place] [address] Performed By: #### L [id number] ####[facility] [id number] [place] [address] [place] Specific gravity (U) [Rel density] 1.018 Normal 1.005-1.03 0 [facility] Comment on above: Order Comment: Speci men Type: URINE SPECIMENOrdering Facility: [facility] Address: [address] [place] [address] Performed By: #### L [id number] ####[facility] [id number] [place] [address] [place] Urobilinogen Ql (U) 0.2 EU/dL Normal 0.2-1.0 EU/dL [facility] Comment on above: Order Comment: Speci men Type: URINE SPECIMENOrdering Facility: [facility] Address: [address] [place] [address] Performed By: #### L [id number] ####[facility] [id number] [place] [address] [place] WBC LM.HPF (Urine sed) [#/Area] /[HPF] Abnormal 0-5 /HPF [facility] Comment on above: Order Comment: Speci men Type: URINE SPECIMENOrdering Facility: [facility] Address: [address] [place] [address] Performed By: #### L [id number] ####[facility] LABCLIA [id number] [facility] [place] [address] [place] Vit B12 SerPl-mCncon 13-2 025 Cobalamin (Vitamin B12) [Mass/Vol] 1258 pg/mL High 232-1245 [facility] Comment on above: Order Comment: Speci men Type: BLOOD SPECIMEN Ordering Facility: [facility] Address: [address] [place] [address] Performed By: #### 2 132-9, 82977-8 #### [facility] CLIA [id number] [address] [place] [address] [place] CNPChelsea 04-08-2024 CNPN Telephone (FAMPWS) BHARTIBEHZAD Lugo ([id number]) 1940 F Date Time Provider Department 04/08/24 [...] Rash MACROBID (NITROFURANTOIN MONOHYD/*09/25/2018 2 - Rash ZTSNSBS-DXR-FAX REDUCTASE INHIBIT*10/06/2014 5 - Intolerance Date Reviewed: 04/05/2024 Reviewed by: Tasha Deutcsh APRN.DIRECTOR HR COMMUNICATIONS - Fully Assessed Reason for Visit: Results [...] osteoarthritis of right hip [M16.11] 02/27/2017 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 (HCC) [HBO8553] 07/28/2017 07/06/2018 Collagenous colitis [K52.831] 12/21/2018 IBS (irritable bowel syndrome) [K58.9] 12/21/2018 Hiatal hernia [K44.9] 09/11/2020 Fall from standing [W19.XXXA] 06/05/2021 Rotator cuff tear arthropathy, left [M75.102, M*10/29/2021 Paroxysmal atrial fibrillation (HCC) [I48.0] 04/11/2022 Primary hypertension [I10] 12/30/2022 Acute pain of right shoulder [M25.511] 04/16/2023 Severe pain of left shoulder [M25.512] 04/16/2023 Cervicalgia [M54.2] 04/16/2023 Encounter Status:Closed by [facility]ATCH [facility] C[facility]N Tele[facility] (FAMPWS) BHARTIBEHZAD Lugo ([id number]) 1940 F Date Time Provider Department 04/06/24 [facility] we recorded the [...] Rash MACROBID (NITROFURANTOIN MONOHYD/*09/25/2018 2 - Rash HZLCASE-DVV-RXO REDUCTASE INHIBIT*10/06/2014 5 - Intolerance Date Reviewed: 04/05/2024 Reviewed by: Tasha Deutsch APRN.DIRECTOR HR COMMUNICATIONS - Fully Assessed Reason for Visit: Results [...] osteoarthritis of right hip [M16.11] 02/27/2017 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 (HCC) [QGW6070] 07/28/2017 07/06/2018 Collagenous colitis [K52.831] 12/21/2018 IBS (irritable bowel syndrome) [K58.9] 12/21/2018 Hiatal hernia [K44.9] 09/11/2020 Fall from standing [W19.XXXA] 06/05/2021 Rotator cuff tear arthropathy, left [M75.102, M*10/29/2021 Paroxysmal atrial fibrillation (HCC) [I48.0] 04/11/2022 Primary hypertension [I10] 12/30/2022 Acute pain of right shoulder [M25.511] 04/16/2023 Severe pain of left shoulder [M25.512] 04/16/2023 Cervicalgia [M54.2] 04/16/2023 Encounter Status:Closed by WINSOME BUTLER on 04/06/24 Normal [facility] Bacteria Ur Culton 4 Bacteria identified Cx [...] , Intermediate >32 , Resistant >64 Abnormal [facility] Comment on above: Performed By: #### 2 4356-8, 630-4 ####[facility] [id number] [place] [id number] [place] CNOVon 04-05-2024 CNOV Office Visit (FAMPWS ) BEHZAD HAY ([id number]) 1940 F Date Time Provider Department 04/05/24 [...] 2-3 weeks HISTORY OF PRESENT ILLNESS: Behzad aHy is a 84 year old female. Patient [...] Hiatal hernia History of esophagogastroduodenoscopy (EGD) 09/23/2014 [facility]: All normal HTN (hypertension) Hyperlipidemia, [...] Bactrim [Sulfamethoxazole-Trimethop rim], Macrobid [Nitrofurantoin Monohyd/M-Cryst], and Oimnlxm-Uxn-Uli Reductase Inhibitors MEDICATIONS Current Outpatient Medications Medication [...] Brother age 76 other (CVA) Brother other (ART LIBRARIAN shunt) Brother Hypertension Sister Diabetes Sister age [...] Exam Tati (more content not included)... Normal [facility] Urinalysis complete panel (U )on 04-05-2024 Bacteria LM.HPF (Urine sed) [#/Area] Negative Normal Negative [facility] Comment on above: Order Comment: Speci men Type: URINE SPECIMENOrdering Facility: [facility] Address: [address] [place] [address] Performed By: #### 2 4356-8, 899-4 ####[facility] LABCLIA [id number] [place] [address] [place] Bilirubin Ql (U) Negative Normal Negative [facility] Comment on above: Order Comment: Speci men Type: URINE SPECIMENOrdering Facility: [facility] Address: [address] [place] [address] Performed By: #### 2 4356-8, 196-4 ####[facility] LABCLIA [id number] [place] [address] [place] Clarity (Unsp spec) Clear Normal Clear [facility] Comment on above: Order Comment: Speci men Type: URINE SPECIMENOrdering Facility: [facility] Address: [address] [place] [address] Performed By: #### 2 4356-8, 469-4 ####[facility] LABCLIA [id number] [place] [address] [place] Color (U) Yellow Normal Yellow [facility] Comment on above: Order Comment: Speci men Type: URINE SPECIMENOrdering Facility: [facility] Address: [address] [place] [address] Performed By: #### 2 4356-8, 630-4 ####[facility] LABCLIA [id number] [place] [address] [place] Epithelial cells LM.HPF (Urine sed) [#/Area] None Seen Normal [facility] Comment on above: Order Comment: Speci men Type: URINE SPECIMENOrdering Facility: [facility] Address: [address] [place] [address] Performed By: #### 2 4356-8, 630-4 ####[facility] LABCLIA [id number] [place] [address] [place] Glucose Test strip (U) [Mass/Vol] Negative Normal Negative [facility] Comment on above: Order Comment: Speci men Type: URINE SPECIMENOrdering Facility: [facility] Address: [address] [place] [address] Performed By: #### 2 4356-8, 630-4 ####[facility] LABCLIA [id number] [place] [address] [place] Hemoglobin Ql (U) Trace Abnormal Negative [facility] Comment on above: Order Comment: Speci men Type: URINE SPECIMENOrdering Facility: [facility] Address: [address] [place] [address] Performed By: #### 2 4356-8, 630-4 ####[facility] LABCLIA [id number] [place] [address] [place] Hyaline casts (Urine sed) [#/Area] 1-3 /LPF Abnormal 0 /LPF [facility] Comment on above: Order Comment: Speci men Type: URINE SPECIMENOrdering Facility: [facility] Address: [address] [place] [address] Performed By: #### 2 4356-8, 630-4 ####[facility] [facility] LABCLIA [id number] [place] [address] [place] Ketones Ql (U) Negative Normal Negative [facility] Comment on above: Order Comment: Speci men Type: URINE SPECIMENOrdering Facility: [facility] Address: [address] [place] [address] Performed By: #### 2 4356-8, 630-4 ####[facility] LABCLIA [id number] [place] [address] [place] Leukocyte esterase Test strip Ql (U) 3+ Abnormal Negative [facility] Comment on above: Order Comment: Speci men Type: URINE SPECIMENOrdering Facility: [facility] Address: [address] [place] [address] Performed By: #### 2 4356-8, 630-4 ####[facility] LABCLIA [id number] [place] [address] [place] Nitrite Ql (U) Negative Normal Negative [facility] Comment on above: Order Comment: Speci men Type: URINE SPECIMENOrdering Facility: [facility] Address: [address] [place] [address] Performed By: #### 2 4356-8, 211-4 ####[facility] LABCLIA [id number] [place] [address] [place] pH (U) 6.5 [pH] Normal <8.5 [facility] Comment on above: Order Comment: Speci men Type: URINE SPECIMENOrdering Facility: [facility] Address: [address] [place] [address] Performed By: #### 2 4356-8, 630-4 ####[facility] LABCLIA [id number] [place] [address] [place] Protein (U) [Mass/Vol] Negative Normal Negative [facility] Comment on above: Order Comment: Speci men Type: URINE SPECIMENOrdering Facility: [facility] Address: [address] [place] [address] Performed By: #### 2 4356-8, 630-4 ####[facility] LABIA [id number] [place] [address] [place] RBC LM.HPF (Urine sed) [#/Area] 0-2 /HPF Normal 0-2 /HPF [facility] Comment on above: Order Comment: Speci men Type: URINE SPECIMENOrdering Facility: [facility] Address: [address] [place] [address] Performed By: #### 2 4356-8, 630-4 ####[facility] [id number] [place] [address] [place] Specific gravity (U) [Rel density] 1.008 Normal 1.005-1.03 0 [facility] Comment on above: Order Comment: Speci men Type: URINE SPECIMENOrdering Facility: [facility] Address: [address] [place] [address] Performed By: #### 2 4356-8, 630-4 ####[facility] LABIA [id number] [place] [address] [place] Urobilinogen Ql (U) 0.2 EU/dL Normal 0.2-1.0 EU/dL [facility] Comment on above: Order Comment: Speci men Type: URINE SPECIMENOrdering Facility: [facility] Address: [address] [place] [address] Performed By: #### 2 4356-8, 630-4 ####[facility] LABIA [id number] [place] [address] [place] WBC LM.HPF (Urine sed) [#/Area] /[HPF] Abnormal 0-5 /HPF [facility] Comment on above: Order Comment: Speci men Type: URINE SPECIMENOrdering Facility: [facility] Address: [address] [place] [address] Performed By: #### 2 4356-8, 630-4 ####[facility] LABIA [id number] [place] [id number] [place] Large Joint Arthro/Inj: L kn ee jointon 08-18-2023 Tamia Quezada PA -C 08/18/2023 11:44 AM Large Joint Arthro/Inj: L knee joint Informed Consent Consent Obtained: Verbal [place] Protocol A moment to CARE was completed. [...] instruments, equipment or retained foreign bodies applicable. [facility] Basic metabolic 2000 panelon 08-15-2023 Anion gap [Moles/Vol] 10 mmol/L 9 - 18 mmol/L [facility] Calcium [Mass/Vol] 10.0 mg/dL 8.5 - 10. 2 mg/dL [facility] Chloride [Moles/Vol] 104 mmol/L 97 - 10 5 mmol/L [facility] CO2 [Moles/Vol] 26 mmol/L 22 - 30 mmol/L [facility] Creatinine [Mass/Vol] 0.81 mg/dL 0.58 - 0.96 mg/dL [facility] GFR/1.73 sq M.predicted among non-blacks MDRD (S/P/Bld) [Vol rate/Area] 71 mL/min/{1.73_m2} - PINF [facility] Comment on above: Estimated Glomerular Filtration Rate [...] [Mass/Vol] 95 mg/dL 74 - 99 mg/dL [facility] Comment on above: The [place] Diabete s Association (ADA) provides guidance for [...] Standards of Medical Care in Diabetes 2016, [place] Diabetes Association. Diabetes Care. 2016.39(Suppl 1). Interpretation and review of laboratory results Normal [facility] Potassium [Moles/Vol] 4.8 mmol/L 3.7 - 5.1 mmol/L [facility] Sodium [Moles/Vol] 140 mmol/L 136 - 144 mmol/L [facility] Urea nitrogen [Mass/Vol] 17 mg/dL 7 - 21 mg/dL [facility] Large Joint Arthro/Inj: L kn ee jointon 08-11-2023 Tamia Quezada PA -C 08/11/2023 1:25 PM Large Joint Arthro/Inj: L knee joint Informed Consent Consent Obtained: Verbal [place] Protocol A moment to CARE was completed. [...] instruments, equipment or retained foreign bodies applicable. [facility] Large Joint Arthro/Inj: L kn ee jointon 08-04-2023 Tamia Quezada PA -C 08/04/2023 11:37 AM Large Joint Arthro/Inj: L knee joint Informed Consent Consent Obtained: Verbal [place] Protocol A moment to CARE was completed. [...] instruments, equipment or retained foreign bodies applicable. [facility] UA DIP, URINE (POC)on 2023 BILIRUBIN UA (POCT) Negative Negative [facility] CLARITY UA (POCT) Clear [facility] COLOR UA (POCT) Yellow [facility] GLUCOSE UA (POCT) Negative Negative mg/dL [facility] Hemoglobin Ql (U) Trace-intact Abnormal Negative [facility] KETONE UA (POCT) Negative Negative mg/dL [facility] LEUKOCYTES UA (POCT) Small Abnormal Negative [facility] [place] NITRITE UA (POCT) Negative Negative [facility] PH UA (POCT) 5.5 4.5 - 8.0 [facility] Protein Ql (U) Negative Negative mg/dL [facility] SPECIFIC GRAVITY UA (POCT) 1.010 1.005 - 1.030 [facility] UROBILINOGEN UA (POCT) 0.2 E.U./dL Normal E.U./dL [facility] XR Knee - left 4 Viewson [facility] CT Head WO contraston 2023 [facility] XR Shoulder - right 2 Viewso n 04-04-2023 IMPRESSION: Findings are suggestive of degenerative changes in the right shoulder, with rotator cuff arthropathy. Uniform Maker: PSCB Transcribe Date/Time: Apr 04 2023 3:23P Dictated by : LILIAM ERIC MD This examination was interpreted and the report reviewed and electronically signed by: LILIAM ERIC MD on Apr 04 2023 3:27PM [facility] DIVISION OF RADIOLOGY * * *Final Report* [...] supraspinatus tendon calcifications. DIVISION OF RADIOLOGY Provider, [facility] - 04/04/2023 * * *Final Report* [...] the right shoulder, with rotator cuff arthropathy. Uniform Maker: PSCB Transcribe Date/Time: Apr 04 2023 3:23P Dictated by : LILIAM ERIC MD This examination was interpreted and the report reviewed and electronically signed by: LILIAM ERIC MD on Apr 04 2023 3:27PM EST [facility] XR Shoulder - right 2 ViewsO rdered By: Ccf Provider on 04-04-2023 [facility] XR Shoulder - right 2 Viewso n 03-31-2023 Radiology Study observation (narrative) [facility] CBC panel Auto (Bld)on 10-11 Erythrocyte distribution width (RBC) [Ratio] 13.4 % 11.5 - 15.0 % [facility] Hematocrit (Bld) [Volume fraction] 40.4 % 36.0 - 46.0 % [facility] Hemoglobin (Bld) [Mass/Vol] 12.7 g/dL 11.5 - 15.5 g/dL [facility] MCH (RBC) [Entitic mass] 31.5 pg 26.0 - 34.0 pg [facility] MCHC (RBC) [Mass/Vol] 31.4 g/dL 30.5 - 36.0 g/dL [facility] MCV (RBC) [Entitic vol] 100.2 fL High 80.0 - 100.0 fL [facility] Nucleated RBC (Bld) [#/Vol] <0.01 k/uL [facility] Platelet mean volume (Bld) [Entitic vol] 9.3 fL 9.0 - 12.7 fL [facility] Platelets (Bld) [#/Vol] 351 10*3/uL 150 - 400 k/uL [facility] RBC (Bld) [#/Vol] 4.03 10*6/uL 3.90 - 5.20 m/uL [facility] WBC (Bld) [#/Vol] 5.97 10*3/uL 3.70 - 11.00 k/uL [facility] Comprehensive metabolic 2000 panelon 10-11-2022 Albumin [Mass/Vol] 4.2 g/dL 3.9 - 4.9 g/dL [facility] ALP [Catalytic activity/Vol] 83 U/L 34 - 123 U/L [facility] ALT [Catalytic activity/Vol] 19 U/L 7 - 38 U/L [facility] Anion gap [Moles/Vol] 9 mmol/L 9 - 18 mmol/L [facility] AST [Catalytic activity/Vol] 22 U/L 13 - 35 U/L [facility] Bilirubin [Mass/Vol] 0.2 mg/dL 0.2 - 1 .3 mg/dL [facility] Calcium [Mass/Vol] 9.9 mg/dL 8.5 - 10. 2 mg/dL [facility] Chloride [Moles/Vol] 104 mmol/L 97 - 10 5 mmol/L [facility] CO2 [Moles/Vol] 30 mmol/L 22 - 30 mmol/L [facility] Creatinine [Mass/Vol] 0.90 mg/dL 0.58 - 0.96 mg/dL [facility] Estimated Glomerular Filtration Rate 63 mL/min/1.73m >=60 mL/min/1.7 3m [facility] Glucose [Mass/Vol] 99 mg/dL 74 - 99 mg/dL [facility] Potassium [Moles/Vol] 4.9 mmol/L 3.7 - 5.1 mmol/L [facility] Protein [Mass/Vol] 6.4 g/dL 6.3 - 8.0 g/dL [facility] Sodium [Moles/Vol] 143 mmol/L 136 - 144 mmol/L [facility] Urea nitrogen [Mass/Vol] 16 mg/dL 7 - 21 mg/dL [facility] FERRITIN BLDon 10-11-2022 Ferritin [Mass/Vol] 46.0 ng/mL 14.7 - 205.1 ng/mL [facility] Iron and Iron binding capaci ty panelon 10-11-2022 Iron [Mass/Vol] 69 ug/dL 41 - 186 ug/dL [facility] Iron binding capacity [Mass/Vol] 322 ug/dL 232 - 386 ug/dL [facility] Iron/TIBC [Molar ratio] 21.4 % 15.0 - 57.0 % [facility] Lipid 1996 panelon Cholesterol [Mass/Vol] 241 mg/dL High <200 mg/dL [facility] Cholesterol in HDL [Mass/Vol] 72 mg/dL >39 mg/dL [facility] Cholesterol in LDL [Mass/Vol] 140 mg/dL High <100 mg/dL [facility] Cholesterol in LDL/Cholesterol in HDL [Mass ratio] 1.94 {ratio} <2.54 [facility] Cholesterol in VLDL [Mass/Vol] 29 mg/dL <30 mg/dL [facility] Cholesterol non HDL [Mass/Vol] 169 mg/dL High <130 mg/dL [facility] Cholesterol.total/Cho lesterol in HDL [Mass ratio] 3.35 {ratio} <5.10 [facility] Fasting Time 14 hrs [facility] Triglyceride [Mass/Vol] 146 mg/dL <150 mg/dL [facility] MAGNESIUM Don 10-11-2022 Magnesium [Mass/Vol] 2.3 mg/dL 1.7 - 2 .3 mg/dL [facility] PTH INTACT BLDon 10-11-2022 Parathyrin.intact [Mass/Vol] 36 pg/mL 15 - 65 pg/mL [facility] VITAMIN D 25 HYDROXYon 10-11 25-hydroxyvitamin D3 [Mass/Vol] 65.1 ng/mL 31.0 - 80.0 ng/mL [facility] ECHOon 04-16-2022 [facility] ESR Westergren method (Bld) [Velocity]on 04-12-2022 ESR (Bld) [Velocity] 31 mm/h High 0 - 20 mm/hr [facility] FERRITIN BLDon 04-12-2022 Ferritin [Mass/Vol] 65.8 ng/mL 14.7 - 205.1 ng/mL [facility] Iron and Iron binding capaci ty panelon 04-12-2022 Iron [Mass/Vol] 79 ug/dL 41 - 186 ug/dL [facility] Iron binding capacity [Mass/Vol] 360 ug/dL 232 - 386 ug/dL [facility] Iron/TIBC [Molar ratio] 21.9 % 15.0 - 57.0 % [facility] Absolute lymphocyte counton 04-07-2022 Lymphocytes Auto (Unsp spec) [#/Vol] 1.40 10*3/uL 0.83-4.51 [facility] Work Phone: Basophil percentageon 2021 Basophils/100 WBC (Bld) 1.1 % 0-1 [facility] Work Phone: Chloride [Moles/Vol] 107 mmol/L 98-107 [facility] Work Phone: Eosinophils/100 WBC (Bld) 1.9 % 0-5 [facility] Work Phone: Glucose [Mass/Vol] 133 mg/dL 74-106 [facility] Work Phone: Comment on above: Fasting Glucose resu lt greater than or equal to 126 mg/dL suggests DIABETES MELLITUS per A.D.A. criteria. Neutrophils (Bld) [#/Vol] 7.1 10*3/uL 2.0-7.7 [facility] Work Phone: Neutrophils/100 WBC (Bld) 74.4 % 47-70 [facility] Work Phone: Potassium [Moles/Vol] 3.9 mmol/L 3.5-5.1 [facility] Work Phone: Sodium [Moles/Vol] 142 mmol/L 136-145 [facility] Work Phone: WBC (Bld) [#/Vol] 9.5 10*3/uL 4.4-11.0 [facility] Work Phone: Blood erythrocytes count (nu mber/volume)on 04-07-2022 RBC (Bld) [#/Vol] 4.16 10*6/uL 4.2-5.4 [facility] Work Phone: Blood hemoglobin measurement (mass/volume)on 04-07-2022 Hemoglobin (Bld) [Mass/Vol] 13.6 g/dL 12.0-15.0 [facility] Work Phone: Blood lymphocytes/100 leukoc yteson 04-07-2022 Lymphocytes/100 WBC (Bld) 14.7 % 19-41 [facility] Work Phone: [phone] Blood monocytes/100 leukocyt eson 04-07-2022 Monocytes/100 WBC (Bld) 7.6 % 0-10 [facility] Work Phone: [phone] Blood platelet mean volumeon 04-07-2022 Platelet mean volume (Bld) [Entitic vol] 8.6 fL 6.2-12.0 [facility] Work Phone: [phone] Determination of erythrocyte mean corpuscular volume (MCV)on 04-07-2022 MCV (RBC) [Entitic vol] 97.8 fL 81-99 [facility] Work Phone: [phone] Hematocrit Auto (Bld) [Volum e fraction]on 04-07-2022 Hematocrit (Bld) [Volume fraction] 40.7 % 37-47 [facility] Work Phone: [phone] Laboratory - Chemistry and C hemistry - challengeon 04-07-2022 CO2 [Moles/Vol] 30.0 mmol/L 21.0-32.0 [facility] Work Phone: [phone] Urea nitrogen/Creatinine [Mass ratio] 18.8 mg/mg 10-20 [facility] Work Phone: [phone] Laboratory - Hematology and Cell countson 04-07-2022 Erythrocyte distribution width (RBC) [Entitic vol] 44.9 fL 35.1-43.9 [facility] Work Phone: [phone] Erythrocyte distribution width (RBC) [Ratio] 12.4 % 11.6-14.6 [facility] Work Phone: [phone] Immature granulocytes/100 WBC (Bld) 0.300 % 0.0-0.9 [facility] Work Phone: [phone] Comment on above: IG% - Immature Granu locytes (promyelocytes, myelocytes and metamyelocytes) > 1% indicates that a LEFT SHIFT is Present. MCH (RBC) [Entitic mass] 32.7 pg 27.0-32.0 [facility] Work Phone: [phone] Nucleated RBC/100 WBC (Bld) [Ratio] 0 % 0-5 [facility] Work Phone: [phone] MCHC Auto (RBC) [Mass/Vol]on 04-07-2022 MCHC (RBC) [Mass/Vol] 33.4 g/dL 32-36 [facility] Work Phone: No Panel Informationon 04-07 Estimated Creatinine Clearance Calc 29.78 ml/min [facility] Work Phone: [phone] Estimated GFR (MDRD) Amer 67 mL/min >60 [facility] Work Phone: [phone] Comment on above: GFR Calc Estimated GFR (MDRD) Non-Af Amer 56 mL/min >60 [facility] Work Phone: [phone] Comment on above: Non- GFR Calc Thyroid Stimulating Hormone (TSH) 1.51 uIU/mL 0.358-3.74 [facility] Work Phone: [phone] Troponin I High Sensitivity 16 pg/mL 3.0-54.0 [facility] Work Phone: [phone] Comment on above: Please Note: [place] t Units and Gender Specific Reference Ranges. For more information see Policy Stat Procedure [place] High Sensitivity Troponin (TNIH) and attachments. Platelets bldon 04-07-2022 Platelets (Bld) [#/Vol] 305 10*3/uL 150-450 [facility] Work Phone: [phone] Serum or plasma calcium camilo urement (mass/volume)on 04-07-2022 Calcium [Mass/Vol] 8.9 mg/dL 8.5-10.1 [facility] Work Phone: [phone] Serum or plasma creatinine m easurement (mass/volume)on 04-07-2022 Creatinine [Mass/Vol] 1.01 mg/dL 0.55-1.02 [facility] Work Phone: [phone] Comment on above: The validity of the calculated GFR & GFRAA in patients over 70 years has not been determined. Clinical correlation is essential. Serum or plasma urea nitroge n measurement (mass/volume)on 04-07-2022 Urea nitrogen [Mass/Vol] 19 mg/dL 7-18 [facility] Work Phone: Thin prep Papanicolaou smear with manual screeningon 04-07-2022 Thin prep Papanicolaou smear with manual screening 5 5-15 [facility] Work Phone: Clinical Summary: Suman ibarra 06-22-2021 75 OP Visit Invalid Interpretation Code [facility] [place] [facility] Work Phone: No Panel Informationon 06-13 Radiology Study observation (narrative) [facility] XR Femur - left AP and Later imelda 06-13-2021 IMPRESSION: No acute process is seen. Degenerative changes of the left knee. Uniform Maker: STAN Transcribe Date/Time: Jun 13 2021 3:45P Dictated by : ENDER OHARA MD This examination was interpreted and the report reviewed and electronically signed by: ENDER OHARA MD on Jun 13 2021 3:47PM [facility] DIVISION OF RADIOLOGY * * *Final Report* [...] narrowing and spurring. DIVISION OF RADIOLOGY Provider, [facility] - 06/13/2021 * * *Final Report* [...] seen. Degenerative changes of the left knee. Uniform Maker: STAN Transcribe Date/Time: Jun 13 2021 3:45P Dictated by : ENDER OHARA MD This examination was interpreted and the report reviewed and electronically signed by: ENDER OHARA MD on Jun 13 2021 3:47PM EST [facility] XR Pelvis and Hip - left AP and Lateral frogon 06-13-2021 IMPRESSION: LEFT total hip arthroplasty without complication. Uniform Maker: [facility] Transcribe Date/Time: Jun 13 2021 3:46P [...] and maintained. Arteriolosclerosis. DIVISION OF RADIOLOGY Provider, [facility] * * *Final [...] IMPRESSION: LEFT total hip arthroplasty without complication. Uniform Maker: STAN Transcribe Date/Time: Jun 13 2021 3:46P Dictated by : ZEN HANSON DO This examination was interpreted and the report reviewed and electronically signed by: ZEN HANSON DO on Jun 13 2021 3:49PM [facility] XR Pelvis and Hip - left AP and Lateral frogOrdered By: Ccf Provider on 06-13-2021 [facility] CNTHERAPYon 11-12-2016 CNTHERAPY OT/PT/Speech Visit ([facility]) ------BEHZAD HAY ([id number]) 1940 FDate Time Provider Department11/12/16 12:45 PM OSVALDO MUELLER (OT) [facility]ounter Number: [id number] Time Provider Department [place]11/12/2016 12:45 PM [id number] MUELLER *[facility] Chrismichele Sargent for Visit: Occupational Therapy [504]Primary Visit Diagnosis:Spontaneous rupture of extensor tendon of left hand [M66.242]Allergies As of Date: 11/12/2016 Noted Allergy ReactionADHESIVE TAPE (ROSINS) 08/27/2011 2 - YhtlZVPMQYC-PUI-OZG REDUCTASE INHIBIT*10/06/2014 5 - IntoleranceDate Reviewed: 09/23/2016Reviewed by: Aida Narayanan Ma - Fully AssessedPrescriptions as of 11/12/2016 Sig: ETODOLAC 400 MG TABLET Take 1 tablet by mouth twice * ASPIRIN 81 MG TABLET,DELAYED * Take 1 tablet by mouth once d* VITAMIN E 400 UNIT CAPSULE Take 1 capsule by mouth once * CYANOCOBALAMIN (VIT B-12) 2,5* Dissolve 1 tablet under the t* [id number] C-M* Take 1 capsule by mouth three* [...] d*Progress Notes:JOSÉ Tucker 11/12/2016 1:33 PM Betzaida [id number] 2016[facility] TH[facility] HAND AND UPPER [...] to strengthening and functionalactivities as able, progress reportBilling:[place]: hand splintTotal time: 30 minutesVerjudah Mueller OT/Filippo,CHT ------- Normal [facility] PROGRESSon 11-12-2016 PROGRESS HNO ID: [id number] thor: Osvaldo (Ina MuellerService: (none)Author Type: Occupational TherapistType: Progress NotesFiled: 11/12/2016 1:33 PMNote Text:Behzad [id number] 2016[facility] THERAP[facility]OT HAND AND UPPER [...] hand splintTotal time: 30 minutesOsvaldo Mueller OT/L,CHT [facility] CNTHERAPYon 10-17-2016 [facility]THERAPY [facility] ------TYLERBEHZAD JONES ([id number]) 1940 FDate Time Provider Department10/17/16 3:45 PM OSVALDO MUELLER (OT) [facility]MCEncounter Number: [id number] Time Provider Department [place]10/17/2016 3:45 PM [id number] MUELLER *[facility] CReason for Visit: OT EVAL [748]Primary Visit Diagnosis:Injury of extensor tendon of left hand, subsequent encounter [S66.902D] Other Visit Diagnosis:Spontaneous rupture of extensor tendon of left hand [M66.242]Allergies As of Date: 10/17/2016 Noted Allergy ReactionADHESIVE TAPE (ROSINS) 08/27/2011 2 - XuuoQFLHGKG-TFR-GTT REDUCTASE INHIBIT*10/06/2014 5 - IntoleranceDate Reviewed: 09/23/2016Reviewed by: Aida Narayanan Ma - Fully AssessedPrescriptions as of 10/17/2016 Sig: ETODOLAC 400 MG TABLET Take 1 tablet by mouth twice * ASPIRIN 81 MG TABLET,DELAYED * Take 1 tablet by mouth once d* VITAMIN E 400 UNIT CAPSULE Take 1 capsule by mouth once * CYANOCOBALAMIN (VIT B-12) 2,5* Dissolve 1 tablet under the t* [id number] C-M* Take 1 capsule by mouth three* [...] once d*Progress Notes:JOSÉ Tucker 10/17/2016 4:37 PM SignedUN[facility] THERAPYOCCUPATIONAL THERAPY HAND EVALUATIONGENERAL [...] having surgery in handPatient Reported Outcome Measures: [facility] Daily Activity - AdaptedSee PT/OT Health Status [...] to light touch:Dexterity / Coordination:Observed to be WFL.Strength:Emissions Testing Technician Strength: 2 RIGHT 25lbs. LEFT 25lbs.Functional Tests:Evidence [...] OT Services: Evaluation - Low Complexity ( 15038)Self Care / Home Management (66251): 1:1 time: 10 minutes (1 unit: 8-22 mins)Orthosis: Fabrication time for custom splint: 15 minutesCustom: [id number] FO custom (fingers only/ mallet/ tip protector/ other) Proofof Delivery Provided: yesTotal time: 40 minutesVerjudah Mueller OT/Filippo,T ------- [facility] PROGRESSon 10-17-2016 PROGRESS HNO ID: [id number] thor: Osvaldo Villalobos: (none)Author Type: Occupational TherapistType: Progress NotesFiled: 10/17/2016 4:37 PMNote Text:[facility] THERAPYOCCUPATIONAL THERAPY HAND EVALUATIONGENERAL [...] having surgery in handPatient Reported Outcome Measures: [facility] Daily Activity - AdaptedSee PT/OT Health Status [...] to light touch:Dexterity / Coordination:Observed to be WFL.Strength:Emissions Testing Technician Strength: 2 RIGHT 25lbs. LEFT 25lbs.Functional Tests:Evidence [...] Scale Score Carrying, Moving and Handling Objects: [id number], Moving and Handling Objects: G8985 NAEvaluation10/17/2016 58 CJ 20-39% impaired CI 1-19% impaired NABased on clinical assessment and the score on the AM-PAC Scale ScoreAssessment Tool, the G code and corresponding severity modifiers aredocumented above.Billing: OT Services: Evaluation - Low Complexity ( 55653)Self Care / Home Management (49037): 1:1 time: 10 minutes (1 unit: 8-22mins)Orthosis: Fabrication time for custom splint: 15 minutesCustom: [id number] FO custom (fingers only/ mallet/ tip protector/ other)Proof of Delivery Provided: yesTotal time: 40 minutesVeronica Ervin, OT/L,CHT [facility] Large Joint Arthro/Inj: L kn ee joint [facility] Vital Signs Date Time Vital Sign Value Performing Clinician Giuseppe engle 11-16-2024 09:02-0400 Heart rate 83 /min Curt Diallo MD Work Phone: [facility] 11-16-2024 09:02-0400 SaO2% (BldA) [Mass fraction] 98 % Curt Diallo MD Work Phone: [facility] 11-16-2024 09:00-0400 Body mass index (BMI) [Ratio] 23.32 kg/m2 Curt Diallo MD Work Phone: [facility] 11-16-2024 09:00-0400 Body weight 54.16 kg Curt Diallo MD Work Phone: [facility] 11-16-2024 08:33-0400 Body temperature 97.59 [degF] Curt Diallo MD Work Phone: [facility] 11-16-2024 08:33-0400 Diastolic blood pressure 73 mm[Hg] Curt Diallo MD Work Phone: [facility] 11-16-2024 08:33-0400 Respiratory rate 18 /min Curt Diallo MD Work Phone: [facility] 11-16-2024 08:33-0400 Systolic blood pressure 121 mm[Hg] Curt Diallo MD Work Phone: [facility] 10-19-2024 09:30-0400 Body height 152.4 cm Curt Diallo MD Work Phone: [facility] 10-18-2024 12:27-0400 Body temperature 98.6 [degF] Dr. Ricki Reyes MD Work Phone: [facility] 10-18-2024 12:27-0400 Diastolic blood pressure 103 mm[Hg] Dr. Ricki Reyes MD Work Phone: 4(294)[phone] [place] [address] 10-18-2024 12:27-0400 Heart rate 89 /min Dr. Ricki Reyes MD Work Phone: 9(836)807-318361 [place] [address] 10-18-2024 12:27-0400 Respiratory rate 16 /min Dr. Ricki Reyes MD Work Phone: 7(886)759-351142 [address] 10-18-2024 12:27-0400 SaO2% (BldA) [Mass fraction] 98 % Dr. Ricki Reyes MD Work Phone: 9(017)912-343442 [address] 10-18-2024 12:27-0400 Systolic blood pressure 132 mm[Hg] Dr. Ricki Reyes MD Work Phone: 4(021)870-880842 [address] 10-18-2024 11:46-0400 Body mass index (BMI) [Ratio] 20.8 kg/m2 Dr. Ricki Reyes MD Work Phone: 9(130)[phone] [place] [address] 10-18-2024 11:46-0400 Body weight 51.[address] Ricki Reyes MD Work Phone: [facility] 10-18-2024 11:45-0400 Body height 157.[address] Ricki Reyes MD Work Phone: [facility] 10-14-2024 10:38-0400 Body temperature 97.5 [degF] Nori Tafoya CCC-MANAGER PULMONARY Work Phone: [facility] 10-14-2024 10:38-0400 Diastolic blood pressure 62 mm[Hg] Nori Tafoya CCC-MANAGER PULMONARY Work Phone: [facility] 10-14-2024 10:38-0400 Heart rate 50 /min Nori Eickholt CCC-MANAGER PULMONARY Work Phone: [facility] 10-14-2024 10:38-0400 SaO2% (BldA) [Mass fraction] 99 % Nori Dontrellolt CCC-MANAGER PULMONARY Work Phone: [facility] 10-14-2024 10:38-0400 Systolic blood pressure 112 mm[Hg] Nori Dontrellolt CCC-MANAGER PULMONARY Work Phone: [facility] 10-13-2024 11:53-0400 Body temperature 97.7 [degF] Nori Dontrellolt CCC-MANAGER PULMONARY Work Phone: [facility] 10-13-2024 11:53-0400 Diastolic blood pressure 70 mm[Hg] Nori Dotnrellolt CCC-MANAGER PULMONARY Work Phone: [facility] 10-13-2024 11:53-0400 Heart rate 55 /min Nori Dontrellolt CCC-MANAGER PULMONARY Work Phone: [facility] 10-13-2024 11:53-0400 SaO2% (BldA) [Mass fraction] 98 % Nori Dontrellolt CCC-MANAGER PULMONARY Work Phone: [facility] 10-13-2024 11:53-0400 Systolic blood pressure 138 mm[Hg] Nori Dontrellolt CCC-MANAGER PULMONARY Work Phone: [facility] 10-13-2024 11:11-0400 Heart rate 55 /min Yola Macnes ALCAZAR/L Work Phone: [facility] Comment on above: post tasks 10-13-2024 11:11-0400 SaO2% (BldA) [Mass fraction] 95 % Yola jN ALCAZAR/L Work Phone: [facility] Comment on above: post tasks 10-13-2024 10:41-0400 Body temperature 98.6 [degF] Yolafilemon Macnes ALCAZAR/L Work Phone: [facility] 10-13-2024 10:41-0400 Diastolic blood pressure 80 mm[Hg] Yola Nj ALCAZAR/L Work Phone: [facility] 10-13-2024 10:41-0400 Respiratory rate 16 /min Yola Nj ALCAZAR/L Work Phone: [facility] 10-13-2024 10:41-0400 Systolic blood pressure 134 mm[Hg] Yola Nj ALCAZAR/L Work Phone: [facility] 10-12-2024 11:33-0400 Body mass index (BMI) [Ratio] 21.58 kg/m2 Tasha Suppan POURER.DIRECTOR HR COMMUNICATIONS Work Phone: [facility] 10-12-2024 11:33-0400 Body temperature 97.59 [degF] Tasha Suppan POURER.DIRECTOR HR COMMUNICATIONS Work Phone: [facility] 10-12-2024 11:33-0400 Body weight 53.52 kg Tasha Suppan POURER.DIRECTOR HR COMMUNICATIONS Work Phone: [facility] 10-12-2024 11:33-0400 Diastolic blood pressure 82 mm[Hg] Tasha Suppan POURER.DIRECTOR HR COMMUNICATIONS Work Phone: [facility] 10-12-2024 11:33-0400 Heart rate 60 /min Tasha Suppan POURER.DIRECTOR HR COMMUNICATIONS Work Phone: [facility] 10-12-2024 11:33-0400 SaO2% (BldA) [Mass fraction] 98 % Tasha Suppan POURER.DIRECTOR HR COMMUNICATIONS Work Phone: [facility] 10-12-2024 11:33-0400 Systolic blood pressure 138 mm[Hg] Tasha Suppan POURER.DIRECTOR HR COMMUNICATIONS Work Phone: [facility] 10-12-2024 09:29-0400 Body height 157.[address] Ricki Reyes MD Work Phone: [facility] 10-12-2024 09:29-0400 Body mass index (BMI) [Ratio] 21.7 kg/m2 Dr. Ricki Reyes MD Work Phone: [facility] 10-12-2024 09:29-0400 Body weight 53.[address] Ricki Reyes MD Work Phone: [facility] 10-12-2024 09:29-0400 Diastolic blood pressure 63 mm[Hg] Dr. Ricki Reyes MD Work Phone: [facility] 10-12-2024 09:29-0400 Heart rate 53 /min Dr. Ricki Reyes MD Work Phone: [facility] 10-12-2024 09:29-0400 Respiratory rate 16 /min Dr. Ricki Reyes MD Work Phone: [facility] 10-12-2024 09:29-0400 Systolic blood pressure 129 mm[Hg] Dr. Ricki Reyes MD Work Phone: [facility] 10-11-2024 14:55-0400 Body temperature 98.2 [degF] Meseret Cruzman-Lopes PT Work Phone: [facility] 10-11-2024 14:55-0400 Diastolic blood pressure 76 mm[Hg] Meseret Halderman-Lopes PT Work Phone: [facility] 10-11-2024 14:55-0400 Heart rate 67 /min Meseret Halderman-Lopes PT Work Phone: [facility] 10-11-2024 14:55-0400 Respiratory rate 16 /min Meseret Halderman-Lopes PT Work Phone: [facility] 10-11-2024 14:55-0400 SaO2% (BldA) [Mass fraction] 99 % Meseret Halderman-Lopes PT Work Phone: [facility] 10-11-2024 14:55-0400 Systolic blood pressure 138 mm[Hg] Meseret Halderman-Lopes PT Work Phone: [facility] 10-11-2024 11:59-0400 Heart rate 79 /min Yola ALCAZAR/L Work Phone: [facility] Comment on above: post tasks 10-11-2024 11:59-0400 SaO2% (BldA) [Mass fraction] 97 % Yola Nj ALCAZAR/L Work Phone: [facility] Comment on above: post tasks 10-11-2024 11:36-0400 Body temperature 97.9 [degF] Yola Nj ALCAZAR/L Work Phone: [facility] 10-11-2024 11:36-0400 Diastolic blood pressure 80 mm[Hg] Yola Nj ALCAZAR/L Work Phone: [facility] 10-11-2024 11:36-0400 Respiratory rate 16 /min Yola Nj ALCAZAR/L Work Phone: [facility] 10-11-2024 11:36-0400 Systolic blood pressure 128 mm[Hg] Yola Nj ALCAZAR/L Work Phone: [facility] 10-08-2024 12:21-0400 Heart rate 64 /min Yola Nj ALCAZAR/L Work Phone: [facility] Comment on above: post tasks 10-08-2024 12:21-0400 SaO2% (BldA) [Mass fraction] 99 % Yola Nj ALCAZAR/L Work Phone: [facility] Comment on above: post tasks 10-08-2024 11:51-0400 Body temperature 97.59 [degF] Yola Nj ALCAZAR/L Work Phone: [facility] 10-08-2024 11:51-0400 Diastolic blood pressure 70 mm[Hg] Yola Nj ALCAZAR/L Work Phone: [facility] 10-08-2024 11:51-0400 Respiratory rate 16 /min Yola Nj ALCAZAR/L Work Phone: [facility] 10-08-2024 11:51-0400 Systolic blood pressure 130 mm[Hg] Yola Nj ALCAZAR/L Work Phone: [facility] 10-07-2024 11:55-0400 Body temperature 98.71 [degF] Merry Gale CCC-MANAGER PULMONARY Work Phone: [facility] 10-07-2024 11:55-0400 Diastolic blood pressure 84 mm[Hg] Merry Gale CCC-MANAGER PULMONARY Work Phone: [facility] 10-07-2024 11:55-0400 Heart rate 72 /min Merkonstantin Gale CCC-MANAGER PULMONARY Work Phone: [facility] 10-07-2024 11:55-0400 Respiratory rate 16 /min Merry Gale CCC-MANAGER PULMONARY Work Phone: [facility] 10-07-2024 11:55-0400 SaO2% (BldA) [Mass fraction] 95 % Merkonstantin Gale CCC-MANAGER PULMONARY Work Phone: [facility] 10-07-2024 11:55-0400 Systolic blood pressure 128 mm[Hg] Moni Adriane CCC-MANAGER PULMONARY Work Phone: [facility] 10-06-2024 11:19-0400 Heart rate 71 /min Yola Nj ALCAZAR/L Work Phone: [facility] Comment on above: post tasks 10-06-2024 11:19-0400 SaO2% (BldA) [Mass fraction] 99 % Yola Nj ALCAZAR/L Work Phone: [facility] Comment on above: post tasks 10-06-2024 10:43-0400 Body temperature 97.7 [degF] Yola Nj ALCAZAR/L Work Phone: [facility] 10-06-2024 10:43-0400 Diastolic blood pressure 66 mm[Hg] Yola Nj ALCAZAR/L Work Phone: [facility] 10-06-2024 10:43-0400 Respiratory rate 16 /min Yola Nj ALCAZAR/L Work Phone: [facility] 10-06-2024 10:43-0400 Systolic blood pressure 130 mm[Hg] Yola Nj ALCAZAR/L Work Phone: [facility] 06-25-2025 10:01-0400 Body temperature 98.2 [degF] Jocelyn RN Work Phone: [facility] 10-06-2024 10:01-0400 Diastolic blood pressure 64 mm[Hg] Jocelyn Most RN Work Phone: [facility] 10-06-2024 10:01-0400 Heart rate 76 /min Jocelyn Most RN Work Phone: [facility] 10-06-2024 10:01-0400 Respiratory rate 16 /min Jocelyn Most RN Work Phone: [facility] 10-06-2024 10:01-0400 SaO2% (BldA) [Mass fraction] 98 % Jocelyn Most RN Work Phone: [facility] 10-06-2024 10:01-0400 Systolic blood pressure 108 mm[Hg] Jocelyn Most RN Work Phone: [facility] 10-04-2024 16:25-0400 Body temperature 98.8 [degF] Merry Gale CCC-MANAGER PULMONARY Work Phone: [facility] 10-04-2024 16:25-0400 Diastolic blood pressure 70 mm[Hg] Merry Gale CCC-MANAGER PULMONARY Work Phone: [facility] 10-04-2024 16:25-0400 Heart rate 55 /min Merry Gale CCC-MANAGER PULMONARY Work Phone: [facility] 10-04-2024 16:25-0400 Respiratory rate 16 /min Merry Gale CCC-MANAGER PULMONARY Work Phone: [facility] 10-04-2024 16:25-0400 SaO2% (BldA) [Mass fraction] 92 % Merry Gale CCC-MANAGER PULMONARY Work Phone: [facility] 10-04-2024 16:25-0400 Systolic blood pressure 134 mm[Hg] Merry Gale CCC-MANAGER PULMONARY Work Phone: [facility] 10-04-2024 14:17-0400 Heart rate 95 /min Scarlett Archie PRICING SUPERVISOR Work Phone: [facility] Comment on above: w ex 10-04-2024 14:17-0400 SaO2% (BldA) [Mass fraction] 99 % Scarlett Archie PRICING SUPERVISOR Work Phone: [facility] 10-04-2024 14:08-0400 Body temperature 97.9 [degF] Scarlett Archie PRICING SUPERVISOR Work Phone: [facility] 10-04-2024 14:08-0400 Diastolic blood pressure 68 mm[Hg] Scarlett Archie PRICING SUPERVISOR Work Phone: [facility] 10-04-2024 14:08-0400 Respiratory rate 18 /min Scarlett Archie PRICING SUPERVISOR Work Phone: [facility] 10-04-2024 14:08-0400 Systolic blood pressure 130 mm[Hg] Scarlett Archie PRICING SUPERVISOR Work Phone: [facility] 10-04-2024 10:30-0400 Body mass index (BMI) [Ratio] 20.85 kg/m2 Tasha Suppan POURER.DIRECTOR HR COMMUNICATIONS Work Phone: [facility] 10-04-2024 10:30-0400 Body weight 51.71 kg Tasha Suppan POURER.DIRECTOR HR COMMUNICATIONS Work Phone: [facility] 10-04-2024 10:30-0400 Diastolic blood pressure 62 mm[Hg] Tasha Suppan POURER.DIRECTOR HR COMMUNICATIONS Work Phone: [facility] 10-04-2024 10:30-0400 Heart rate 46 /min Tasha Suppan POURER.DIRECTOR HR COMMUNICATIONS Work Phone: [facility] 10-04-2024 10:30-0400 SaO2% (BldA) [Mass fraction] 98 % Tasha Suppan POURER.DIRECTOR HR COMMUNICATIONS Work Phone: [facility] 10-04-2024 10:30-0400 Systolic blood pressure 136 mm[Hg] Tasha Suppan POURER.DIRECTOR HR COMMUNICATIONS Work Phone: [facility] 10-04-2024 09:07-0400 Body temperature 98.7 [degF] Dr. Ricki Reyes MD Work Phone: [facility] 10-04-2024 09:07-0400 Body weight 53.[address] Ricki Reyes MD Work Phone: [facility] 10-04-2024 09:07-0400 Diastolic blood pressure 70 mm[Hg] Dr. Ricki Reyes MD Work Phone: [facility] 10-04-2024 09:07-0400 Heart rate 58 /min Dr. Ricki Reyes MD Work Phone: 6(304)651-039336 [place] [address] 10-04-2024 09:07-0400 Respiratory rate 17 /min Dr. Ricki Reyes MD Work Phone: 3(221)[phone] [place] [address] 10-04-2024 09:07-0400 SaO2% (BldA) [Mass fraction] 97 % Dr. Ricki Reyes MD Work Phone: [facility] 10-04-2024 09:07-0400 Systolic blood pressure 150 mm[Hg] Dr. Ricki Reyes MD Work Phone: [facility] 10-01-2024 11:32-0400 Diastolic blood pressure 82 mm[Hg] Precious Gerstenslager OT Work Phone: [facility] 10-01-2024 11:32-0400 Heart rate 79 /min Precious Gerstenslager OT Work Phone: [facility] 10-01-2024 11:32-0400 SaO2% (BldA) [Mass fraction] 99 % Precious Gerstenslager OT Work Phone: [facility] 10-01-2024 11:32-0400 Systolic blood pressure 138 mm[Hg] Precious Gerstenslager OT Work Phone: [facility] 10-01-2024 10:44-0400 Body temperature 97.5 [degF] Precious Gerstenslager OT Work Phone: [facility] 09-29-2024 14:13-0400 Body temperature 98.49 [degF] Scarlett Archie PRICING SUPERVISOR Work Phone: [facility] 09-29-2024 14:13-0400 Diastolic blood pressure 66 mm[Hg] Scarlett Archie PRICING SUPERVISOR Work Phone: [facility] 09-29-2024 14:13-0400 Heart rate 60 /min Scarlett Archie PRICING SUPERVISOR Work Phone: [facility] 09-29-2024 14:13-0400 Respiratory rate 18 /min Scarlett Archie PRICING SUPERVISOR Work Phone: [facility] 09-29-2024 14:13-0400 SaO2% (BldA) [Mass fraction] 97 % Scarlett Archie PRICING SUPERVISOR Work Phone: [facility] 09-29-2024 14:13-0400 Systolic blood pressure 126 mm[Hg] Scarlett Archie PRICING SUPERVISOR Work Phone: [facility] 09-29-2024 11:21-0400 Body temperature 98.91 [degF] Merry Gale CCC-MANAGER PULMONARY Work Phone: [facility] 09-29-2024 11:21-0400 Diastolic blood pressure 66 mm[Hg] Merry Gale CCC-MANAGER PULMONARY Work Phone: [facility] 09-29-2024 11:21-0400 Heart rate 50 /min Merry Gale CCC-MANAGER PULMONARY Work Phone: [facility] 09-29-2024 11:21-0400 Respiratory rate 16 /min Merry Gale CCC-MANAGER PULMONARY Work Phone: [facility] 09-29-2024 11:21-0400 SaO2% (BldA) [Mass fraction] 97 % Merry Gale CCC-MANAGER PULMONARY Work Phone: [facility] 09-29-2024 11:21-0400 Systolic blood pressure 138 mm[Hg] Merry Gale CCC-MANAGER PULMONARY Work Phone: [facility] 09-29-2024 10:26-0400 Body temperature 98.2 [degF] Jocelyn Most RN Work Phone: [facility] 09-29-2024 10:26-0400 Diastolic blood pressure 66 mm[Hg] Jocelyn RN Work Phone: [facility] 09-29-2024 10:26-0400 Heart rate 60 /min Jocelynabraham Hernandez RN Work Phone: [facility] 09-29-2024 10:26-0400 Respiratory rate 16 /min Jocelynabraham Hernandez RN Work Phone: [facility] 09-29-2024 10:26-0400 SaO2% (BldA) [Mass fraction] 98 % Jocelynabraham Hernandez RN Work Phone: [facility] 09-29-2024 10:26-0400 Systolic blood pressure 118 mm[Hg] Jocelynabraham Hernandez RN Work Phone: [facility] 09-27-2024 11:34-0400 Body temperature 98.91 [degF] Merry Gale CCC-MANAGER PULMONARY Work Phone: [facility] 09-27-2024 11:34-0400 Diastolic blood pressure 80 mm[Hg] Merry Gale CCC-MANAGER PULMONARY Work Phone: [facility] 09-27-2024 11:34-0400 Heart rate 73 /min Merry Gale CCC-MANAGER PULMONARY Work Phone: [facility] 09-27-2024 11:34-0400 Respiratory rate 16 /min Merry Gale CCC-MANAGER PULMONARY Work Phone: [facility] 09-27-2024 11:34-0400 SaO2% (BldA) [Mass fraction] 97 % Merry Gale CCC-MANAGER PULMONARY Work Phone: [facility] 09-27-2024 11:34-0400 Systolic blood pressure 138 mm[Hg] Merry Gale CCC-MANAGER PULMONARY Work Phone: [facility] 09-25-2024 14:48-0400 Body temperature 97.59 [degF] Meseret Rahman PT Work Phone: [facility] 09-25-2024 14:48-0400 Diastolic blood pressure 58 mm[Hg] Meseret Mensah-Lopes PT Work Phone: [facility] 09-25-2024 14:48-0400 Heart rate 57 /min Meseret Mensah-Lopes PT Work Phone: [facility] 09-25-2024 14:48-0400 Respiratory rate 16 /min Meseret Mensah-Lopes PT Work Phone: [facility] 09-25-2024 14:48-0400 SaO2% (BldA) [Mass fraction] 97 % Meseret Mensah-Lopes PT Work Phone: [facility] 09-25-2024 14:48-0400 Systolic blood pressure 126 mm[Hg] Meseret Mensah-Lopes PT Work Phone: [facility] 09-23-2024 14:16-0400 Body temperature 98.2 [degF] Nori Eicsheilaolt CCC-MANAGER PULMONARY Work Phone: [facility] 09-23-2024 14:16-0400 Diastolic blood pressure 58 mm[Hg] Nori Eickholt CCC-MANAGER PULMONARY Work Phone: [facility] 09-23-2024 14:16-0400 Heart rate 75 /min Nori Eickholt CCC-MANAGER PULMONARY Work Phone: [facility] 09-23-2024 14:16-0400 SaO2% (BldA) [Mass fraction] 95 % Nori Eickholt CCC-MANAGER PULMONARY Work Phone: [facility] 09-23-2024 14:16-0400 Systolic blood pressure 100 mm[Hg] Nori Eickholt CCC-MANAGER PULMONARY Work Phone: [facility] 09-22-2024 11:42-0400 Body height 157.5 cm Jocelyn Hernandez RN Work Phone: [facility] 09-22-2024 11:42-0400 Body mass index (BMI) [Ratio] 20.85 kg/m2 Jocelynmitra Hernandez RN Work Phone: [facility] 09-22-2024 11:42-0400 Body temperature 97.9 [degF] Jocelynmitra Hernandez RN Work Phone: [facility] 09-22-2024 11:42-0400 Body weight 51.71 kg Jocelynmitra Hernandez RN Work Phone: [facility] 09-22-2024 11:42-0400 Diastolic blood pressure 80 mm[Hg] Jocelynmitra Hernandez RN Work Phone: [facility] 09-22-2024 11:42-0400 Heart rate 68 /min Jocelynmitra Hernandez RN Work Phone: [facility] 09-22-2024 11:42-0400 Respiratory rate 16 /min Jocelynmitra Hernandez RN Work Phone: [facility] 09-22-2024 11:42-0400 SaO2% (BldA) [Mass fraction] 97 % Jocelynmitra Hernandez RN Work Phone: [facility] 09-22-2024 11:42-0400 Systolic blood pressure 124 mm[Hg] Jocelynmitra Hernandez RN Work Phone: [facility] 09-19-2024 08:18-0400 Diastolic blood pressure 67 mm[Hg] Dr. Ricki Reyes MD Work Phone: [facility] 09-19-2024 08:18-0400 Heart rate 58 /min Dr. Ricki Reyes MD Work Phone: [facility] 09-19-2024 08:18-0400 Systolic blood pressure 134 mm[Hg] Dr. Ricki Reyes MD Work Phone: [facility] 09-19-2024 06:00-0400 Body temperature 97.8 [degF] Dr. Ricki Reyes MD Work Phone: [facility] 09-19-2024 06:00-0400 Respiratory rate 16 /min Dr. Ricki Reyes MD Work Phone: [facility] 09-19-2024 06:00-0400 SaO2% (BldA) [Mass fraction] 95 % Dr. Ricki Reyes MD Work Phone: 2(640)865-004461 [place] [address] 09-18-2024 20:19-0400 Body mass index (BMI) [Ratio] 20.7 kg/m2 Dr. Ricki Reyes MD Work Phone: 2(014)139-822461 [place] [address] 09-17-2024 05:49-0400 Body weight 51.[address] Ricki Reyes MD Work Phone: 5(746)883-405461 [place] [address] 08-31-2024 23:58-0400 Inhaled oxygen flow rate 2 L/min Dr. Ricki Reyes MD Work Phone: 9(146)586-867261 [place] [address] 08-23-2024 09:53-0400 Body height 157.[address] Ricki Reyes MD Work Phone: 7(012)985-219461 [place] [address] 08-22-2024 12:10-0400 Diastolic blood pressure 63 mm[Hg] Dr. Ricki Reyes MD Work Phone: 3(921)958-662861 [place] [address] 08-22-2024 12:10-0400 Heart rate 51 /min Dr. Ricki Reyes MD Work Phone: 5(190)192-166361 [place] [address] 08-22-2024 12:10-0400 Systolic blood pressure 125 mm[Hg] Dr. Ricki Reyes MD Work Phone: 5(137)311-945261 [place] [address] 08-22-2024 11:15-0400 Body temperature 97.9 [degF] Dr. Ricki Reyes MD Work Phone: 4(960)075-330061 [place] [address] 08-22-2024 11:15-0400 Respiratory rate 16 /min Dr. Ricki Reyes MD Work Phone: 2(467)[phone] [place] [address] 08-22-2024 11:15-0400 SaO2% (BldA) [Mass fraction] 99 % Dr. Ricki Reyes MD Work Phone: 3(874)404-096336 [place] [address] 08-22-2024 09:00-0400 Body mass index (BMI) [Ratio] 20.9 kg/m2 Dr. Ricki Reyes MD Work Phone: 2(551)444-550336 [place] [address] 08-19-2024 13:25-0400 Body height 157.[address] Ricki Reyes MD Work Phone: 2(909)234-962136 [place] [address] 08-19-2024 13:25-0400 Body weight 51.[address] Ricki Reyes MD Work Phone: 7(796)388-160061 [place] [address] 08-18-2024 14:00-0400 Diastolic blood pressure 101 mm[Hg] Dr. Ricki Reyes MD Work Phone: 0(531)586-668236 [place] [address] 08-18-2024 14:00-0400 Heart rate 79 /min Dr. Ricki Reyes MD Work Phone: 0(447)254-942361 [place] [address] 08-18-2024 14:00-0400 Respiratory rate 21 /min Dr. Ricki Reyes MD Work Phone: 5(869)980-158361 [place] [address] 08-18-2024 14:00-0400 Systolic blood pressure 181 mm[Hg] Dr. Ricki Reyes MD Work Phone: 4(791)904-448161 [place] [address] 08-18-2024 12:36-0400 SaO2% (BldA) [Mass fraction] 96 % Dr. Ricki Reyes MD Work Phone: 2(066)935-370861 [place] [address] 08-18-2024 10:54-0400 Body height 152.[address] Ricki Reyes MD Work Phone: 5(653)526-148261 [place] [address] 08-18-2024 10:54-0400 Body mass index (BMI) [Ratio] 24 kg/m2 Dr. Ricki Reyes MD Work Phone: 5(967)718-912436 [place] [address] 08-18-2024 10:54-0400 Body weight 55.[address] Ricki Reyes MD Work Phone: 2(410)726-774536 [place] [address] 08-18-2024 09:54-0400 Body temperature 98 [degF] Dr. Ricki Reyes MD Work Phone: 6(303)236-625236 [place] [address] 08-16-2024 20:53-0400 Body temperature 98 [degF] Dr. Ricki Reyes MD Work Phone: 7(647)685-601536 [place] [address] 08-16-2024 20:53-0400 Diastolic blood pressure 72 mm[Hg] Dr. Ricki Reyes MD Work Phone: 0(524)817-866936 [place] [address] 08-16-2024 20:53-0400 Heart rate 91 /min Dr. Ricki Reyes MD Work Phone: [facility] 08-16-2024 20:53-0400 Respiratory rate 16 /min Dr. Ricki Reyes MD Work Phone: [facility] 08-16-2024 20:53-0400 SaO2% (BldA) [Mass fraction] 97 % Dr. Ricki Reyes MD Work Phone: [facility] 08-16-2024 20:53-0400 Systolic blood pressure 153 mm[Hg] Dr. Ricki Reyes MD Work Phone: [facility] 08-16-2024 15:44-0400 Body mass index (BMI) [Ratio] 23.1 kg/m2 Dr. Ricki Reyes MD Work Phone: [facility] 08-16-2024 15:44-0400 Body weight 53.[address] Ricki Reyes MD Work Phone: [facility] 04-26-2024 10:15-0500 Body mass index (BMI) [Ratio] 22.12 kg/m2 Tasha Suppan POURER.DIRECTOR HR COMMUNICATIONS Work Phone: [facility] 04-26-2024 10:15-0500 Body weight 53.98 kg Tasha Suppan POURER.DIRECTOR HR COMMUNICATIONS Work Phone: [facility] 04-26-2024 10:15-0500 Diastolic blood pressure 78 mm[Hg] Tasha Suppan POURER.DIRECTOR HR COMMUNICATIONS Work Phone: [facility] 04-26-2024 10:15-0500 Heart rate 62 /min Tasha Suppan POURER.DIRECTOR HR COMMUNICATIONS Work Phone: [facility] 04-26-2024 10:15-0500 SaO2% (BldA) [Mass fraction] 98 % Tasha Suppan POURER.DIRECTOR HR COMMUNICATIONS Work Phone: [facility] 04-26-2024 10:15-0500 Systolic blood pressure 142 mm[Hg] Tasha Suppan POURER.DIRECTOR HR COMMUNICATIONS Work Phone: [facility] 04-05-2024 15:25-0500 Body mass index (BMI) [Ratio] 22.12 kg/m2 Tasha Suppan POURER.DIRECTOR HR COMMUNICATIONS Work Phone: [facility] 04-05-2024 15:25-0500 Body temperature 97.2 [degF] Tasha Suppan POURER.DIRECTOR HR COMMUNICATIONS Work Phone: [facility] 04-05-2024 15:25-0500 Body weight 53.98 kg Tasha Suppan POURER.DIRECTOR HR COMMUNICATIONS Work Phone: [facility] 04-05-2024 15:25-0500 Diastolic blood pressure 84 mm[Hg] Tasha Suppan POURER.DIRECTOR HR COMMUNICATIONS Work Phone: [facility] 04-05-2024 15:25-0500 Heart rate 75 /min Tasha Suppan POURER.DIRECTOR HR COMMUNICATIONS Work Phone: [facility] 04-05-2024 15:25-0500 Respiratory rate 16 /min Tasha Suppan POURER.DIRECTOR HR COMMUNICATIONS Work Phone: [facility] 04-05-2024 15:25-0500 SaO2% (BldA) [Mass fraction] 96 % Tasha Suppan POURER.DIRECTOR HR COMMUNICATIONS Work Phone: [facility] 04-05-2024 15:25-0500 Systolic blood pressure 162 mm[Hg] Tasha Suppan POURER.DIRECTOR HR COMMUNICATIONS Work Phone: [facility] 12-05-2023 10:49-0400 Body mass index (BMI) [Ratio] 21.19 kg/m2 Tasha Suppan POURER.DIRECTOR HR COMMUNICATIONS Work Phone: [facility] 12-05-2023 10:49-0400 Body weight 51.71 kg Tasha Suppan POURER.DIRECTOR HR COMMUNICATIONS Work Phone: [facility] 12-05-2023 10:49-0400 Diastolic blood pressure 88 mm[Hg] Tasha Suppan POURER.DIRECTOR HR COMMUNICATIONS Work Phone: [facility] 12-05-2023 10:49-0400 Heart rate 81 /min Tasha Suppan POURER.DIRECTOR HR COMMUNICATIONS Work Phone: [facility] 12-05-2023 10:49-0400 SaO2% (BldA) [Mass fraction] 98 % Tasha Suppan POURER.DIRECTOR HR COMMUNICATIONS Work Phone: [facility] 12-05-2023 10:49-0400 Systolic blood pressure 150 mm[Hg] Tasha Suppan POURER.DIRECTOR HR COMMUNICATIONS Work Phone: [facility] 10-27-2023 09:35-0400 Body mass index (BMI) [Ratio] 21.56 kg/m2 Tasha Suppan POURER.DIRECTOR HR COMMUNICATIONS Work Phone: [facility] 10-27-2023 09:35-0400 Body weight 52.62 kg Tasha Suppan POURER.DIRECTOR HR COMMUNICATIONS Work Phone: [facility] 10-27-2023 09:35-0400 Diastolic blood pressure 76 mm[Hg] Tasha Suppan POURER.DIRECTOR HR COMMUNICATIONS Work Phone: [facility] 10-27-2023 09:35-0400 Heart rate 70 /min Tasha Suppan POURER.DIRECTOR HR COMMUNICATIONS Work Phone: [facility] 10-27-2023 09:35-0400 Respiratory rate 18 /min Tasha Suppan POURER.DIRECTOR HR COMMUNICATIONS Work Phone: [facility] 10-27-2023 09:35-0400 SaO2% (BldA) [Mass fraction] 97 % Tasha Suppan POURER.DIRECTOR HR COMMUNICATIONS Work Phone: [facility] 10-27-2023 09:35-0400 Systolic blood pressure 128 mm[Hg] Tasha Suppan POURER.DIRECTOR HR COMMUNICATIONS Work Phone: [facility] 09-26-2023 15:23-0400 Body mass index (BMI) [Ratio] 21.72 kg/m2 Sudheer Olguin APRN.DIRECTOR HR COMMUNICATIONS Work Phone: [facility] 09-26-2023 15:23-0400 Body temperature 97.5 [degF] Sudheer Sharif POURER.DIRECTOR HR COMMUNICATIONS Work Phone: [facility] 09-26-2023 15:23-0400 Body weight 53 kg Sudheer Sharif POURER.DIRECTOR HR COMMUNICATIONS Work Phone: [facility] 09-26-2023 15:23-0400 Diastolic blood pressure 90 mm[Hg] Sudheer Sharif POURER.DIRECTOR HR COMMUNICATIONS Work Phone: [facility] Comment on above: checked BP x 2 09-26-2023 15:23-0400 Heart rate 69 /min Sudheerarnoldo Olguin POURER.DIRECTOR HR COMMUNICATIONS Work Phone: [facility] 09-26-2023 15:23-0400 Respiratory rate 18 /min Sudheerarnoldo Olguin POURER.DIRECTOR HR COMMUNICATIONS Work Phone: [facility] 09-26-2023 15:23-0400 SaO2% (BldA) [Mass fraction] 97 % Sudheerarnoldo Olguin POURER.DIRECTOR HR COMMUNICATIONS Work Phone: [facility] 09-26-2023 15:23-0400 Systolic blood pressure 194 mm[Hg] Sudheer Sharif POURER.DIRECTOR HR COMMUNICATIONS Work Phone: [facility] Comment on above: checked BP x 2 08-15-2023 09:55-0400 Body mass index (BMI) [Ratio] 21.56 kg/m2 Tasha Suppan POURER.FIELD SEISMOLOGIST Work Phone: [facility] 08-15-2023 09:55-0400 Body weight 52.62 kg Tasha Suppan POURER.FIELD SEISMOLOGIST Work Phone: [facility] 08-15-2023 09:55-0400 Diastolic blood pressure 78 mm[Hg] Tasha Suppan POURER.FIELD SEISMOLOGIST Work Phone: [facility] 08-15-2023 09:55-0400 Heart rate 83 /min Tasha Suppan POURER.FIELD SEISMOLOGIST Work Phone: [facility] 08-15-2023 09:55-0400 Respiratory rate 16 /min Tasha Suppan POURER.FIELD SEISMOLOGIST Work Phone: [facility] 08-15-2023 09:55-0400 SaO2% (BldA) [Mass fraction] 98 % Tasha Deutsch POURER.FIELD SEISMOLOGIST Work Phone: [facility] 08-15-2023 09:55-0400 Systolic blood pressure 128 mm[Hg] Tasha Deutsch POURER.FIELD SEISMOLOGIST Work Phone: [facility] 07-16-2023 12:59-0400 Body temperature 97.7 [degF] Moses Ross MD Work Phone: [facility] 07-16-2023 12:59-0400 Body weight 53.98 kg Moses Ross MD Work Phone: [facility] 07-16-2023 12:59-0400 Diastolic blood pressure 76 mm[Hg] Moses Ross MD Work Phone: [facility] 07-16-2023 12:59-0400 Heart rate 60 /min Moses Ross MD Work Phone: [facility] 07-16-2023 12:59-0400 Systolic blood pressure 161 mm[Hg] Moses Ross MD Work Phone: [facility] 07-08-2023 09:30-0400 Body weight 53.07 kg Hetal Gallardo DO Work Phone: [facility] 07-08-2023 09:30-0400 Diastolic blood pressure 84 mm[Hg] Hetal Gallardo DO Work Phone: [facility] 07-08-2023 09:30-0400 Heart rate 72 /min Hetal Gallardo DO Work Phone: [facility] 07-08-2023 09:30-0400 SaO2% (BldA) [Mass fraction] 98 % Hetal Gallardo DO Work Phone: [facility] 07-08-2023 09:30-0400 Systolic blood pressure 180 mm[Hg] Hetal Gallardo DO Work Phone: [facility] 06-25-2023 10:00-0400 Diastolic blood pressure 87 mm[Hg] Julee Maderaal PT [facility] 06-25-2023 10:00-0400 Heart rate 61 /min Julee O'Kirk PT [facility] 06-25-2023 10:00-0400 SaO2% (BldA) [Mass fraction] 97 % Julee O'Kirk PT [facility] 06-25-2023 10:00-0400 Systolic blood pressure 177 mm[Hg] Julee O'Kirk PT [facility] 06-18-2023 10:00-0500 Diastolic blood pressure 80 mm[Hg] Julee O'Kirk PT [facility] 06-18-2023 10:00-0500 Heart rate 76 /min Julee O'Kirk PT [facility] 06-18-2023 10:00-0500 SaO2% (BldA) [Mass fraction] 99 % Julee O'Kirk PT [facility] 06-18-2023 10:00-0500 Systolic blood pressure 154 mm[Hg] Julee O'Kirk PT [facility] 06-04-2023 10:00-0500 Diastolic blood pressure 98 mm[Hg] Julee O'Kirk PT [facility] 06-04-2023 10:00-0500 Heart rate 80 /min Julee O'Kirk PT [facility] 06-04-2023 10:00-0500 SaO2% (BldA) [Mass fraction] 99 % Julee O'Kirk PT [facility] 06-04-2023 10:00-0500 Systolic blood pressure 197 mm[Hg] Julee O'Kirk PT [facility] 06-02-2023 16:22-0500 Diastolic blood pressure 80 mm[Hg] Tasha Suppan POURER.FIELD SEISMOLOGIST Work Phone: [facility] 06-02-2023 16:22-0500 Heart rate 78 /min Tasha Suppan POURER.FIELD SEISMOLOGIST Work Phone: [facility] 06-02-2023 16:22-0500 Respiratory rate 16 /min Tasha Suppan POURER.FIELD SEISMOLOGIST Work Phone: [facility] 06-02-2023 16:22-0500 SaO2% (BldA) [Mass fraction] 98 % Tasha Deutsch POURER.FIELD SEISMOLOGIST Work Phone: [facility] 06-02-2023 16:22-0500 Systolic blood pressure 152 mm[Hg] Tasha Deutsch POURER.FIELD SEISMOLOGIST Work Phone: [facility] 05-28-2023 10:00-0500 Diastolic blood pressure 97 mm[Hg] Julee O'Kirk PT [facility] 05-28-2023 10:00-0500 Heart rate 67 /min Julee O'Kirk PT [facility] 05-28-2023 10:00-0500 SaO2% (BldA) [Mass fraction] 99 % Julee O'Kirk PT [facility] 05-28-2023 10:00-0500 Systolic blood pressure 191 mm[Hg] Julee O'Kirk PT [facility] 05-26-2023 13:41-0500 Diastolic blood pressure 80 mm[Hg] Breann Haagen POURER.DIRECTOR HR COMMUNICATIONS Work Phone: [facility] 05-26-2023 13:41-0500 Heart rate 69 /min Breann Haagen POURER.DIRECTOR HR COMMUNICATIONS Work Phone: [facility] 05-26-2023 13:41-0500 Systolic blood pressure 171 mm[Hg] Breann Haagen POURER.DIRECTOR HR COMMUNICATIONS Work Phone: [facility] 05-26-2023 13:10-0500 Respiratory rate 16 /min Breann Haagen POURER.DIRECTOR HR COMMUNICATIONS Work Phone: [facility] 05-26-2023 13:10-0500 SaO2% (BldA) [Mass fraction] 96 % Breann Haagen POURER.DIRECTOR HR COMMUNICATIONS Work Phone: [facility] 12-30-2022 15:07-0400 Body weight 52.16 kg Sandra Horne MD Work Phone: [facility] 12-30-2022 15:07-0400 Diastolic blood pressure 94 mm[Hg] Sandra Horne MD Work Phone: [facility] 12-30-2022 15:07-0400 Heart rate 74 /min Sandra Horne MD Work Phone: [facility] 12-30-2022 15:07-0400 SaO2% (BldA) [Mass fraction] 98 % Sandra Horne MD Work Phone: [facility] 12-30-2022 15:07-0400 Systolic blood pressure 197 mm[Hg] Sandra Horne MD Work Phone: [facility] 10-24-2022 09:09-0400 Body weight 52.16 kg NA Harrington PA-C Work Phone: [facility] 10-24-2022 09:09-0400 Diastolic blood pressure 76 mm[Hg] NA Harrington PA-C Work Phone: [facility] 10-24-2022 09:09-0400 Heart rate 80 /min NA Harrington PA-C Work Phone: [facility] 10-24-2022 09:09-0400 Respiratory rate 16 /min NA Harrington PA-C Work Phone: [facility] 10-24-2022 09:09-0400 SaO2% (BldA) [Mass fraction] 98 % NA Harrington PA-C Work Phone: [facility] 10-24-2022 09:09-0400 Systolic blood pressure 142 mm[Hg] NA Harrington PA-C Work Phone: [facility] 10-10-2022 13:15-0400 Body weight 53.07 kg NA Harrington PA-C Work Phone: [facility] 10-10-2022 13:15-0400 Diastolic blood pressure 74 mm[Hg] NA Harrington PA-C Work Phone: [facility] 10-10-2022 13:15-0400 Heart rate 68 /min NA Harrington PA-C Work Phone: [facility] 10-10-2022 13:15-0400 Respiratory rate 16 /min NA Harrington PA-C Work Phone: [facility] 10-10-2022 13:15-0400 SaO2% (BldA) [Mass fraction] 97 % NA Harrington PA-C Work Phone: [facility] 10-10-2022 13:15-0400 Systolic blood pressure 146 mm[Hg] NA Harrington PA-C Work Phone: [facility] 04-11-2022 09:31-0500 Body weight 53.98 kg NA Harrington PA-C Work Phone: [facility] 04-11-2022 09:31-0500 Diastolic blood pressure 88 mm[Hg] NA Harrington PA-C Work Phone: [facility] 04-11-2022 09:31-0500 Heart rate 75 /min NA Harrington PA-C Work Phone: [facility] 04-11-2022 09:31-0500 Respiratory rate 16 /min NA Harrington PA-C Work Phone: [facility] 04-11-2022 09:31-0500 SaO2% (BldA) [Mass fraction] 95 % NA Harrington PA-C Work Phone: [facility] 04-11-2022 09:31-0500 Systolic blood pressure 132 mm[Hg] NA Harrington PA-C Work Phone: [facility] 04-07-2022 23:20-0500 Diastolic blood pressure 73 mm[Hg] [facility] Work Phone: 04-07-2022 23:20-0500 Heart rate 83 /min [facility] Work Phone: 04-07-2022 23:20-0500 Respiratory rate 15 /min [facility] Work Phone: 04-07-2022 23:20-0500 SaO2% (BldA) [Mass fraction] 98 % [facility] Work Phone: 04-07-2022 23:20-0500 Systolic blood pressure 135 mm[Hg] [facility] Work Phone: 04-07-2022 20:57-0500 Body height 152.4 cm [facility] Work Phone: 04-07-2022 20:57-0500 Body mass index (BMI) [Ratio] 23 kg/m2 [facility] Work Phone: 04-07-2022 20:57-0500 Body temperature 97.8 [degF] [facility] Work Phone: 04-07-2022 20:57-0500 Body weight 53.52 kg [facility] Work Phone: 10-29-2021 11:10-0400 Body temperature 98.1 [degF] NA Harrington PA-C Work Phone: [facility] 10-29-2021 11:10-0400 Body weight 53.07 kg NA Harrington PA-C Work Phone: [facility] 10-29-2021 11:10-0400 Diastolic blood pressure 62 mm[Hg] NA Harrington PA-C Work Phone: [facility] 10-29-2021 11:10-0400 Heart rate 69 /min NA Harrington PA-C Work Phone: [facility] 10-29-2021 11:10-0400 Respiratory rate 16 /min NA Harrington PA-C Work Phone: [facility] 10-29-2021 11:10-0400 SaO2% (BldA) [Mass fraction] 95 % NA Harrington PA-C Work Phone: [facility] 10-29-2021 11:10-0400 Systolic blood pressure 148 mm[Hg] NA Harrington PA-C Work Phone: [facility] NEGATED: Highlighted [id number] 11:13-0500 Body height 152.[facility] cm [facility] Work Phone: NEGATED: Highlighted [id number] 11:13-0500 Body height 152 [facility] Work Phone: NEGATED: Highlighted [id number] 11:[id number] Body mass index (BMI) [Ratio] 22.74 kg/m2 [facility] Work Phone: NEGATED: Highlighted [id number] 11:050 Body weight 52.62 kg [facility] Work Phone: NEGATED: Highlighted [id number] 11:050 Body weight 53 kg [facility] Work Phone: Encounters Encounter Date Encounter Type Care Provider Facility Start: 01-25-2025 ambulatory Tasha Suppan Facil ity:[facility] Start: 01-13-2025 ambulatory Tasha Suppan Facil ity:[facility] Start: 12-09-2024 ambulatory Tasha Suppan Facil ity:[facility] Start: 12-03-2024 End: 12-06-2024 ambulatory Tasha A Suppan POURER.DIRECTOR HR COMMUNICATIONS Work Phone: [facility] Comment on above: Blood Thinner Start: 11-30-2024 ambulatory Tasha Suppan Facil ity:[facility] Start: 11-23-2024 End: 11-23-2024 Home visit Charlee Rojo RN Work Phone: [facility] Comment on above: AGENCY DC NO [place] Start: 11-23-2024 End: 11-23-2024 Telephone encounter Tasha A Suppan POURER.DIRECTOR HR COMMUNICATIONS Work Phone: [facility] Start: 11-23-2024 ambulatory Tasha Suppan Facil ity:[facility] Start: 11-18-2024 ambulatory Tasha Suppan Facil ity:[facility] Start: 11-10-2024 End: 11-12-2024 Telephone encounter Tasha A Suppan POURER.DIRECTOR HR COMMUNICATIONS Work Phone: [facility] Comment on above: Fax Neurovascular Am bul[facility] in [place] Start: 11-04-2024 End: 11-04-2024 ambulatory Tasha Deutsch POURER.DIRECTOR HR COMMUNICATIONS Work Phone: [facility] Comment on above: Allied Health Visit (Medication adherence outreach/) Start: 10-20-2024 End: 10-20-2024 Telephone encounter Mack Brito RN Work Phone: [facility] Comment on above: Home Care (Notificat ion of hospital admission.) Start: 10-20-2024 End: 10-20-2024 Home visit Mack Brito RN Work Phone: [facility] Comment on above: SN TRANSFER Start: 10-19-2024 End: 10-19-2024 Home visit Precious Carpenter OT Work Phone: [facility] Comment on above: OT ATTEMPTED VISIT Start: 10-18-2024 End: 11-16-2024 Evaluation and management of inpatient Curt Diallo MD Work Phone: [id number] Start: 10-18-2024 End: 10-18-2024 Emergency department patient visit Dr. Ricki Reyes MD Work Phone: -Emergency Department Work Phone: Start: 10-15-2024 End: 10-18-2024 Refill Tasha Deutsch POURER.DIRECTOR HR COMMUNICATIONS Work Phone: [facility] Comment on above: Refill Request Start: 10-14-2024 End: 12-14-2024 Follow-up encounter Tasha Deutsch POURER.DIRECTOR HR COMMUNICATIONS Work Phone: [facility] Start: 10-14-2024 End: 10-14-2024 Home visit Nori Tafoya CCC-MANAGER PULMONARY Work Phone: [facility] Comment on above: MANAGER PULMONARY REASSESSMENT Start: 10-13-2024 End: 10-13-2024 Home visit Nori Tafoya CCC-MANAGER PULMONARY Work Phone: [facility] Comment on above: MANAGER PULMONARY ROUTINE Start: 10-13-2024 End: 10-13-2024 Home visit Yola Nj ALCAZAR/L Work Phone: [facility] Comment on above: ALCAZAR ROUTINE Start: 10-12-2024 End: 10-12-2024 Office outpatient visit 15 minutes Tasha A Suppan POURER.DIRECTOR HR COMMUNICATIONS Work Phone: [facility] Comment on above: Dysuria (Primary Dx) ; Confusion; Seasonal allergic rhinitis, unspecified trigger Start: 10-12-2024 End: 10-12-2024 ambulatory TASHA A SUPPAN Facility:[facility] Start: 10-12-2024 End: 10-12-[address] Cricket Leyva MD -[facility] Work Phone: Start: 10-12-2024 End: 10-12-[address] Ricki Reyes MD Work Phone: -[facility] Start: 10-12-2024 End: 10-12-2024 Home visit Nori Tafoya [facility]-MANAGER PULMONARY Work Phone: [facility] Comment on above: MANAGER PULMONARY ATTEMPTED VISIT Start: 10-11-2024 End: 10-12-2024 ambulatory Tasha A Suppan POURER.DIRECTOR HR COMMUNICATIONS Work Phone: [facility] Comment on above: UTI Start: 10-11-2024 End: 10-11-2024 Home visit Yola Nj ALCAZAR/L Work Phone: [facility] Comment on above: ALCAZAR ROUTINE PT DISC DC W VISIT Start: 10-08-2024 End: 10-08-2024 Home visit Yola Nj ALCAZAR/L Work Phone: [facility] Comment on above: ALCAZAR ROUTINE Start: 10-07-2024 End: 10-07-2024 Orders Only Tasha A Suppan POURER.DIRECTOR HR COMMUNICATIONS Work Phone: [facility] Comment on above: MANAGER PULMONARY ROUTINE Start: 10-06-2024 End: 10-07-2024 Telephone encounter Moni Rodríguez CCC-MANAGER PULMONARY Work Phone: [facility] Comment on above: Home Care ([place] g out patient's speech therapy orders) Start: 10-06-2024 End: 10-06-2024 Home visit Jocelyn Hernandez RN Work Phone: [facility] Comment on above: SN DISC DC W VISIT ALCAZAR ROUTINE Start: 10-05-2024 End: 10-05-2024 Follow-up encounter Tasha Deutsch POURER.DIRECTOR HR COMMUNICATIONS Work Phone: [facility] Start: 10-04-2024 End: 10-04-2024 Home visit Scarltet Almanza PRICING SUPERVISOR Work Phone: [facility] [facility] Comment on above: PRICING SUPERVISOR ROUTINE MANAGER PULMONARY ROUTINE Start: 10-04-2024 End: 10-04-2024 ambulatory TASHA A SUPPAN Facility:[facility] Start: 10-04-2024 End: 10-04-2024 Office outpatient visit 25 minutes Tasha Deutsch POURER.DIRECTOR HR COMMUNICATIONS Work Phone: [facility] Comment on above: Paroxysmal atrial fi brillation (HCC) (Primary Dx); 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 Ricki Reyes MD Work Phone: [facility] Work Phone: Start: 10-01-2024 End: 10-01-2024 Home visit Precious Carpenter OT Work Phone: [facility] Comment on above: OT EVAL Start: 09-29-2024 End: 09-29-2024 Home visit Scarlett Almanza PRICING SUPERVISOR Work Phone: [facility] Comment on above: PRICING SUPERVISOR ROUTINE SN ROUTINE MANAGER PULMONARY ROUTINE Start: 09-27-2024 End: 09-28-2024 ambulatory Tasha Deutsch POURER.DIRECTOR HR COMMUNICATIONS Work Phone: [facility] Comment on above: Living Will Start: 09-27-2024 End: 09-27-2024 Telephone encounter Tasha Deutsch POURER.DIRECTOR HR COMMUNICATIONS Work Phone: [facility] Start: 09-27-2024 End: 09-27-2024 Home visit Moni Anne [facility]-MANAGER PULMONARY Work Phone: [facility] Comment on above: MANAGER PULMONARY ROUTINE Start: 09-25-2024 End: 09-25-2024 Home visit Meseret Rahman PT Work Phone: [facility] Comment on above: PT EVAL Start: 09-24-2024 End: 09-24-2024 Telephone encounter Tasha Deutsch POURER.DIRECTOR HR COMMUNICATIONS Work Phone: [facility] Start: 09-23-2024 End: 09-23-2024 Orders Only Tasha Deutsch POURER.DIRECTOR HR COMMUNICATIONS Work Phone: [facility] Comment on above: LICENSED LIFE AND HEALTH AGENT CARE COORDINATIO N Home Care IDT CLINICAL TEAM CO LLABORATION MANAGER PULMONARY EVAL Start: 09-22-2024 End: 09-22-2024 Home visit Jocelyn Hernandez RN Work Phone: [facility] Comment on above: SN SOC Start: 09-21-2024 End: 09-21-2024 Telephone encounter Nga Mccall RN Work Phone: [facility] Start: 09-18-2024 Non-patient / Non-visit Dr. Amandeep Dorado DO [facility] Work Phone: Start: 09-17-2024 End: 09-17-2024 Telephone encounter Asad KINGSLEY Work Phone: [facility] Comment on above: Home Care (Confirmat ion Call) Home Care (MD AISHWARYA ANGUIANO) Start: 09-16-2024 Non-patient / Non-visit Dr. Amandeep Dorado [facility] Work Phone: Start: 09-14-2024 End: 09-16-2024 ambulatory Tasha Deutsch POURER.DIRECTOR HR COMMUNICATIONS Work Phone: [facility] Comment on above: Behzad Obando er - FMLA Start: 09-14-2024 Non-patient / Non-visit Dr. Amandeep Dorado [facility] Work Phone: Start: 09-13-2024 Non-patient / Non-visit Dr. Amandeep Dorado [facility] Work Phone: Start: 09-09-2024 Non-patient / Non-visit Dr. Amandeep Dorado [facility] Work Phone: Start: 09-07-2024 Non-patient / Non-visit Dr. Amandeep Dorado [facility] Work Phone: Start: 09-05-2024 Non-patient / Non-visit Dr. Amandeep Dorado [facility] Work Phone: Start: 09-02-2024 Non-patient / Non-visit Dr. Amandeep Dorado [facility] Work Phone: Start: 08-31-2024 Non-patient / Non-visit Dr. Amandeep Dorado [facility] Work Phone: Start: 08-30-2024 End: 08-30-2024 Telephone encounter Tasha Deutsch POURER.DIRECTOR HR COMMUNICATIONS Work Phone: [facility] Start: 08-30-2024 Non-patient / Non-visit Dr. Amandeep Dorado [facility] Work Phone: Start: 08-26-2024 Non-patient / Non-visit Dr. Amandeep Dorado [facility] Work Phone: Start: 08-23-2024 End: 08-23-2024 Telephone encounter Tasha Deutsch POURER.DIRECTOR HR COMMUNICATIONS Work Phone: [facility] Start: 08-23-2024 Non-patient / Non-visit Dr. Amandeep Dorado [facility] Work Phone: Start: 08-22-2024 ambulatory Tasha Deutsch Facil ity:[facility] Start: 08-22-2024 End: 09-19-2024 Evaluation and management of inpatient [facility] Work Phone: Start: 08-22-2024 Non-patient / Non-visit Dr. Mara Mar [facility] Work Phone: Start: 08-21-2024 Non-patient / Non-visit Dr. Mara Mar [facility] Work Phone: Start: 08-20-2024 Non-patient / Non-visit Dr. Mara Mar [facility] Work Phone: Start: 08-19-2024 Non-patient / Non-visit Dr. Mara Mar [facility] Work Phone: Start: 08-19-2024 ambulatory Cricket Leyva Facility:[facility] Start: 08-19-2024 Non-patient / Non-visit Dr. Cricket flanagan MD -[facility] Start: 08-18-2024 ambulatory Mara Mar Facility:[facility] Start: 08-18-2024 End: 08-22-2024 Evaluation and management of inpatient Dr. Mara Mar DO [facility] Work Phone: Start: 08-18-[address] Ricki Reyes MD Work Phone: [facility] Work Phone: Start: 08-16-2024 End: 08-16-2024 Emergency department patient visit Dr. Ricki Reyes MD Work Phone: -Emergency Department Work Phone: Start: 07-05-2024 End: 07-05-2024 Refill Tasha A Suppan POURER.DIRECTOR HR COMMUNICATIONS Work Phone: [facility] Comment on above: Refill Request Start: 04-26-2024 End: 04-26-2024 Telephone encounter Tasha A Suppan POURER.DIRECTOR HR COMMUNICATIONS Work Phone: [facility] Start: 04-26-2024 End: 04-26-2024 ambulatory TASHA A SUPPAN Facility:[facility] Start: 04-26-2024 End: 04-26-2024 Office outpatient visit 25 minutes Tasha A Suppan POURER.DIRECTOR HR COMMUNICATIONS Work Phone: [facility] Comment on above: Collagenous colitis (Primary Dx); [...] End: 04-08-2024 Telephone encounter Tasha A Suppan POURER.DIRECTOR HR COMMUNICATIONS Work Phone: [facility] Comment on above: Results Start: 04-06-2024 End: 04-06-2024 Telephone encounter Tasha A Suppan POURER.DIRECTOR HR COMMUNICATIONS Work Phone: [facility] Comment on above: Results Start: 04-05-2024 End: 04-05-2024 Office outpatient visit 15 minutes Tasha A Suppan POURER.DIRECTOR HR COMMUNICATIONS Work Phone: [facility] Comment on above: Acute non-recurrent maxillary sinusitis (Primary Dx); Urinary urgency Start: 04-05-2024 End: 04-05-2024 ambulatory TASHA A SUPPAN Facility:[facility] Start: 12-05-2023 End: 12-05-2023 Office outpatient visit 15 minutes Tasha A Suppan POURER.DIRECTOR HR COMMUNICATIONS Work Phone: [facility] Comment on above: PAD (peripheral piyush ry disease) (HCC) (Primary Dx) Start: 10-27-2023 End: 10-27-2023 Office outpatient visit 25 minutes Tasha Deutsch APRN.DIRECTOR HR COMMUNICATIONS Work Phone: [facility] Comment on above: Paroxysmal atrial fi brillation [...] Office outpatient visit 15 minutes Tasha Deutsch APRN.FIELD SEISMOLOGIST Work Phone: [facility] Comment on above: Headache, unspecifie d [...] ambulatory M Garcia houser PA-C Work Phone: [facility] Comment on above: urinary symptoms Start: 07-16-2023 End: 07-16-2023 Patient encounter procedure Moses Ross MD Work Phone: [facility] Comment on above: Acute right-sided lo w [...] 06-25-2023 End: 06-25-2023 ambulatory Julee O'Kirk PT [facility] Comment on above: Acute pain of right shoulder (Primary Dx); Severe pain of left shoulder; Cervicalgia Start: 06-23-2023 End: 06-23-2023 Patient encounter procedure Tamia Quezada PA-C Work Phone: Orthopaedics Comment on above: Chronic pain of left knee (Primary Dx); Primary osteoarthritis of left knee; Patellofemoral pain syndrome of left knee Start: 06-23-2023 End: 06-23-2023 Subsequent hospital visit by physician Ameya [facility] Work Phone: Radiology Comment on above: Pain [R52] Start: 06-18-2023 End: 06-18-2023 ambulatory Julee O'Kirk PT [facility] Comment on above: Acute pain of right shoulder (Primary Dx); Severe pain of left shoulder; Cervicalgia Start: 06-09-2023 Telephone encounter Tasha Deutsch APRN.FIELD SEISMOLOGIST Work Phone: [facility] Comment on above: Results Start: 06-04-2023 End: 06-04-2023 ambulatory Julee O'Kirk PT [facility] Comment on above: Acute pain of right shoulder (Primary Dx); Severe pain of left shoulder; Cervicalgia Start: 06-02-2023 End: 06-02-2023 Office outpatient visit 25 minutes Tasha Deutsch APRN.FIELD SEISMOLOGIST Work Phone: [facility] Comment on above: DDD (degenerative di sc disease), cervical (Primary Dx); Primary hypertension; Right carotid bruit; Vitamin D deficiency; Vitamin B12 deficiency; Dizziness Start: 05-28-2023 Telephone encounter Breann hansen APRN.CNP Work Phone: [facility] Comment on above: Results Start: 05-28-2023 End: 05-28-2023 ambulatory Julee Becker PT [facility] Comment on above: Acute pain of right shoulder (Primary Dx); Severe pain of left shoulder; Cervicalgia Start: 05-27-2023 End: 05-27-2023 Subsequent hospital visit by physician [facility] (I-Stat) Work Phone: Cat Scan Comment on above: Transient cerebral i schemia, unspecified type [G45.9] Start: 05-26-2023 ambulatory Jose G Monroy on PA-C Work Phone: [facility] Comment on above: Dizziness Start: 05-26-2023 Telephone encounter Breann hansen APRN.CNP Work Phone: [facility] Start: 05-26-2023 End: 05-26-2023 Office outpatient visit 25 minutes Breann Schmitz APRN.CNP Work Phone: [facility] Comment on above: Primary hypertension (Primary Dx); Transient cerebral ischemia, unspecified type; Dizziness; Right carotid bruit Start: 05-21-2023 End: 05-21-2023 ambulatory Julee Becker PT [facility] Comment on above: Acute pain of right shoulder (Primary Dx); Severe pain of left shoulder; Cervicalgia Start: 03-31-2023 End: 03-31-2023 Subsequent hospital visit by physician Xr [facility] Work Phone: Radiology Comment on above: Acute pain of right shoulder [M25.511] Start: 12-30-2022 End: 12-30-2022 Patient encounter procedure Sandra Horne MD Work Phone: Cardiology Comment on above: Paroxysmal atrial fi brillation (HCC) (Primary Dx); Primary hypertension Start: 10-24-2022 End: 10-24-2022 Patient encounter procedure Jose G Harrington PA-C Work Phone: [facility] Comment on above: Impacted cerumen of right ear (Primary Dx); Neck pain on right side Start: 10-10-2022 End: 10-10-2022 Patient encounter procedure Jose G Harrington PA-C Work Phone: [facility] Comment on above: Paroxysmal atrial fi brillation (HCC) (Primary Dx); Rotator cuff tear arthropathy, left; Hiatal hernia; Collagenous colitis; Irritable bowel syndrome with diarrhea; Chronic renal insufficiency, stage 3 (moderate) (HCC); Vitamin D deficiency; DDD (degenerative disc disease), cervical; Primary osteoarthritis of right hip; Asymptomatic menopause; Asymptomatic postmenopausal status Start: 04-11-2022 End: 04-11-2022 Patient encounter procedure Jose G Harrington PA-C Work Phone: [facility] Comment on above: Paroxysmal atrial fi brillation (HCC) (Primary Dx); Chronic renal insufficiency, stage 3 (moderate) (HCC); Collagenous colitis; Fall from standing, initial encounter; Vitamin D deficiency; Iron deficiency anemia, unspecified iron deficiency anemia type Start: 04-07-2022 End: 04-07-2022 Emergency department patient visit [facility]Emergency Department Start: 10-29-2021 End: 10-29-2021 Patient encounter procedure Jose G Harrington PA-C Work Phone: [facility] Comment on above: Irritant dermatitis (Primary Dx); Traumatic tear of left rotator cuff, sequela; Collagenous colitis; Chronic renal insufficiency, stage 3 (moderate) (HCC); Vitamin D deficiency Start: 10-24-2021 ambulatory Jazmyne Beltran [facility] Comment on above: Community Monitoring Outreach ([employer] Enrollment - Declined/Not interested in home monitoring) Start: 08-01-2021 Refill Jose G houser PA-C Work Phone: [facility] Comment on above: Refill Request Lab Orders Start: 06-13-2021 End: 06-13-2021 Subsequent hospital visit by physician Xr [facility] Work Phone: Radiology Comment on above: ov Start: 11-12-2016 End: 11-12-2016 Ambulatory ILYA [facility] Start: 10-17-2016 End: 10-17-2016 Ambulatory TAMIA LANDNI) [facility] Procedures Date Procedure Procedure Detail Performing Clinician Start: 11-15-2024 CBC AND ELECTRONIC DIFF Jesus S Abukwiek POURER-DIRECTOR HR COMMUNICATIONS Work Phone: Start: 11-15-2024 Complete blood count with white cell differential, automated Jesus S Abukwiek POURER-DIRECTOR HR COMMUNICATIONS Work Phone: Start: 11-15-2024 Creatinine blood Jesus S Abukwiek POURER-DIRECTOR HR COMMUNICATIONS Work Phone: Start: 11-15-2024 Hepatic function panel Reta Galarza POURER-DIRECTOR HR COMMUNICATIONS Work Phone: Start: 11-14-2024 CARDIAC RHYTHM (SCANNED) Other Other OT Start: 11-12-2024 INTERVENTIONAL UPPER ENDOSCOPY Leeroy Pantoja MD Work Phone: Start: 11-12-2024 Radiologic exam ches t single view Stephanie Molinaa DO Work Phone: Start: 11-12-2024 Gases blood ph direc t camilo xcpt pulse oximitry Stephanie Araiza Shammaa DO Work Phone: Start: 11-12-2024 CBC AND ELECTRONIC DIFF Jesus S Abukwiek POURER-DIRECTOR HR COMMUNICATIONS Work Phone: Start: 11-12-2024 Complete blood count with white cell differential, automated Jesus S Abukwiek POURER-DIRECTOR HR COMMUNICATIONS Work Phone: Start: 11-12-2024 Creatinine blood Jesus S Abukwiek POURER-DIRECTOR HR COMMUNICATIONS Work Phone: Start: 11-11-2024 Radiologic exam ches t single view Ailyn Tripathee POURER-DIRECTOR HR COMMUNICATIONS Work Phone: Start: 11-11-2024 Ct head/brain w/o contrast material Ailyn Tripathee POURER-DIRECTOR HR COMMUNICATIONS Work Phone: Start: 11-10-2024 Radiologic exam ches t single view Reta Galarza POURER-DIRECTOR HR COMMUNICATIONS Work Phone: Start: 11-09-2024 FLEXIBLE ENDOSCOPIC EVALUATION OF SWALLOWING Ailyn [employer] POURER-DIRECTOR HR COMMUNICATIONS Work Phone: Start: 11-09-2024 CBC AND ELECTRONIC DIFF Jesus S Abukwiek POURER-DIRECTOR HR COMMUNICATIONS Work Phone: Start: 11-09-2024 Complete blood count with white cell differential, automated Jesus S Abukwiek POURER-DIRECTOR HR COMMUNICATIONS Work Phone: Start: 11-09-2024 Electrolyte panel Jesus S Abukwiek POURER-DIRECTOR HR COMMUNICATIONS Work Phone: Start: 11-06-2024 CBC AND ELECTRONIC DIFF Jesus S Abukwiek POURER-DIRECTOR HR COMMUNICATIONS Work Phone: Start: 11-06-2024 Complete blood count with white cell differential, automated Jesus S Abukwiek POURER-DIRECTOR HR COMMUNICATIONS Work Phone: Start: 11-06-2024 Creatinine blood Jesus S Abukwiek POURER-DIRECTOR HR COMMUNICATIONS Work Phone: Start: 11-04-2024 Creatinine blood Lobito Mix MD Work Phone: Start: 11-03-2024 CBC AND ELECTRONIC DIFF Jesus S Abukwiek POURER-DIRECTOR HR COMMUNICATIONS Work Phone: Start: 11-03-2024 Complete blood count with white cell differential, automated Jesus S Abukwiek POURER-DIRECTOR HR COMMUNICATIONS Work Phone: Start: 11-03-2024 Electrolyte panel Jesus S Abukwiek POURER-DIRECTOR HR COMMUNICATIONS Work Phone: Start: 11-02-2024 Culture bct isol&prs mptv id isolate ea urine David Sutton POURER-DIRECTOR HR COMMUNICATIONS Work Phone: Start: 11-02-2024 EXTRA MICRO David Sutton POURER-DIRECTOR HR COMMUNICATIONS Work Phone: Start: 11-02-2024 URINALYSIS REFLEX TO CULTURE David Sutton POURER-DIRECTOR HR COMMUNICATIONS Work Phone: Start: 11-02-2024 Radiologic exam abdo men 1 view David Sutton POURER-DIRECTOR HR COMMUNICATIONS Work Phone: Start: 11-01-2024 Radiologic exam abdo men 1 view Ousmane Cantu DO Work Phone: Start: 11-01-2024 Glucose measurement, blood Ousmane Cantu DO Work Phone: Start: 11-01-2024 Radiologic exam abdo men 1 view Reta Galarza POURER-DIRECTOR HR COMMUNICATIONS Work Phone: Start: 11-01-2024 Glucose measurement, blood Jeronimo Trujillo MD Work Phone: Start: 10-31-2024 Glucose measurement, blood Jeronimo Trujillo MD Work Phone: Start: 10-31-2024 Glucose measurement, blood Jeronimo Trujillo MD Work Phone: Start: 10-31-2024 Glucose measurement, blood Jeronimo Trujillo MD Work Phone: Start: 10-31-2024 Glucose measurement, blood Jeronimo Trujillo MD Work Phone: Start: 10-31-2024 CBC AND ELECTRONIC DIFF Jesus S Abukwiek POURER-DIRECTOR HR COMMUNICATIONS Work Phone: Start: 10-31-2024 Complete blood count with white cell differential, automated Jesus S Abukwiek POURER-DIRECTOR HR COMMUNICATIONS Work Phone: Start: 10-31-2024 Creatinine blood Jesus S Abukwiek POURER-DIRECTOR HR COMMUNICATIONS Work Phone: Start: 10-31-2024 Glucose measurement, blood [...] abdo men 1 view Jesus S Abverónica POURER-DIRECTOR HR COMMUNICATIONS Work Phone: Start: 10-29-2024 Glucose measurement, blood Jeronimo Trujillo MD Work Phone: Start: 10-28-2024 Glucose measurement, blood Jeronimo Trujillo MD Work Phone: Start: 10-28-2024 Glucose measurement, blood Jeronimo Trujillo MD Work Phone: Start: 10-28-2024 Glucose measurement, blood Jeronimo Trujillo MD Work Phone: Start: 10-28-2024 CBC AND ELECTRONIC DIFF Jesus S Abwialicia POURER-DIRECTOR HR COMMUNICATIONS Work Phone: Start: 10-28-2024 Complete blood count with white cell differential, automated Jesus S Abverónica POURER-DIRECTOR HR COMMUNICATIONS Work Phone: Start: 10-28-2024 Creatinine blood Jesus S Abverónica POURER-DIRECTOR HR COMMUNICATIONS Work Phone: Start: 10-27-2024 Glucose measurement, blood Jeronimo Trujillo MD Work Phone: Start: 10-27-2024 Glucose measurement, blood Jeronimo Trujillo MD Work Phone: Start: 10-27-2024 Radiologic exam abdo men 1 view David Sutton POURER-DIRECTOR HR COMMUNICATIONS Work Phone: Start: 10-27-2024 Glucose measurement, blood [...] low function contrast study Jesus Lugo Lizzymartha POURER-DIRECTOR HR COMMUNICATIONS Work Phone: Start: 10-26-2024 SPEECH MODIFIED RALPH UM SWALLOW Ailyn Tripathee POURER-DIRECTOR HR COMMUNICATIONS Work Phone: Start: 10-26-2024 Glucose measurement, blood Jeronimo Trujillo MD Work Phone: Start: 10-26-2024 Culture bct isol&prs mptv id isolate ea urine Ailyn Tripathee POURER-DIRECTOR HR COMMUNICATIONS Work Phone: Start: 10-26-2024 EXTRA MICRO Ailyn Tr ipathee POURER-DIRECTOR HR COMMUNICATIONS Work Phone: Start: 10-26-2024 URINALYSIS REFLEX TO CULTURE Ailyn Tripathee POURER-DIRECTOR HR COMMUNICATIONS Work Phone: Start: 10-26-2024 Glucose measurement, blood Jeronimo Trujillo MD Work Phone: Start: 10-25-2024 Glucose measurement, blood Jeronimo Trujillo MD Work Phone: Start: 10-25-2024 Glucose measurement, blood Mayra Mar MD Work Phone: Start: 10-25-2024 Glucose measurement, blood Mayra Mar MD Work Phone: Start: 10-25-2024 CBC AND ELECTRONIC DIFF Jesus Yang POURER-[facility] Work Phone: Start: 10-25-2024 Complete blood count with white cell differential, automated Jesus Yang [facility] Work Phone: Start: 10-25-2024 Creatinine blood Jesus Yang P[facility]ER[facility] Work Phone: Start: 10-24-2024 Glucose measurement, blood Mayra Mar MD Work Phone: Start: 10-24-2024 Culture bct isol&prs mptv id isolate ea urine Aelx K Corless DO Work Phone: Start: 10-24-2024 EXTRA MICRO Alex K Co rless DO Work Phone: Start: 10-24-2024 URINALYSIS REFLEX TO CULTURE Alex K Corless DO Work Phone: Start: 10-24-2024 Radiologic exam abdo men 1 view David Sutton [facility] Work Phone: Start: 10-24-2024 Glucose measurement, [...] FLEXIBLE ENDOSCOPIC EVALUATION OF SWALLOWING Jesus Yang POURER-DIRECTOR HR COMMUNICATIONS Work Phone: Start: 10-22-2024 Glucose measurement, blood Mayra Mar MD Work Phone: Start: 10-22-2024 Assay of magnesium Nase rin M Laure POURER-DIRECTOR HR COMMUNICATIONS Work Phone: Start: 10-22-2024 CBC AND ELECTRONIC DIFF Naserin M Laure POURER-DIRECTOR HR COMMUNICATIONS Work Phone: Start: 10-22-2024 Complete blood count with white cell differential, automated Naserin M Laure POURER-DIRECTOR HR COMMUNICATIONS Work Phone: Start: 10-21-2024 Glucose measurement, blood Mayra Mar MD Work Phone: Start: 10-21-2024 Glucose measurement, blood Mayra Mar MD Work Phone: Start: 10-21-2024 Glucose measurement, blood Mayra Mar MD Work Phone: Start: 10-21-2024 Assay of magnesium Nase rin M Laure POURER-DIRECTOR HR COMMUNICATIONS Work Phone: Start: 10-21-2024 CBC AND ELECTRONIC DIFF Naserin M Laure POURER-DIRECTOR HR COMMUNICATIONS Work Phone: Start: 10-21-2024 Complete blood count with white cell differential, automated Naserin M Laure POURER-DIRECTOR HR COMMUNICATIONS Work Phone: Start: 10-20-2024 Glucose measurement, blood Mayra Mar MD Work Phone: Start: 10-20-2024 Glucose measurement, blood Mayra Mar MD Work Phone: Start: 10-20-2024 Glucose measurement, blood Mayra Mar MD Work Phone: Start: 10-20-2024 Assay of magnesium Jacqui Kelsey [facility] Work Phone: Start: 10-20-2024 CBC AND ELECTRONIC DIFF Sebastián Kelsey [facility] Work Phone: Start: 10-20-2024 Complete blood count with white cell differential, automated Sebastián Kelsey [facility] Work Phone: Start: 10-20-2024 Glucose measurement, blood Mayra Mar MD Work Phone: Start: 10-19-2024 Ct head/brain w/o contrast material Krys Mix MD Work Phone: Start: 10-19-2024 Glucose measurement, blood Mayra Mar MD Work Phone: Start: 10-19-2024 FLEXIBLE ENDOSCOPIC EVALUATION OF SWALLOWING Ailyn Rogeathee [facility] Work Phone: Start: 10-19-2024 Glucose measurement, blood Mayra Mar MD Work Phone: Start: 10-19-2024 Blood count platelet automated Bob Ramos MD Work Phone: Start: 10-19-2024 Echo tthrc r-t 2d w/wom-mode compl spec&colr d Sebastián Kelsey [facility] Work Phone: Start: 10-19-2024 Mri brain brain stem w/o w/contrast material David Sutton [facility] Work Phone: Start: 10-19-2024 Glucose measurement, blood Nenad Renard Sher MD Work Phone: Start: 10-19-2024 Bilirubin direct Fawad Addison PA-C Work Phone: Start: 10-19-2024 CBC AND ELECTRONIC DIFF Sebastián Kelsey POURER-DIRECTOR HR COMMUNICATIONS Work Phone: Start: 10-19-2024 Complete blood count with white cell differential, automated Sebastián Kelsey POURER-DIRECTOR HR COMMUNICATIONS Work Phone: Start: 10-19-2024 Iadna s aureus ampli fied probe tq Sebastián Kelsey POURER-DIRECTOR HR COMMUNICATIONS Work Phone: Start: 10-19-2024 MANUAL DIFF Sebastián Kelsey POURER-DIRECTOR HR COMMUNICATIONS Work Phone: Start: 10-18-2024 Radiologic exam abdo men 1 view Sebastián Kelsey POURER-DIRECTOR HR COMMUNICATIONS Work Phone: Start: 10-18-2024 Artl cathj/cannulj mntr/transfusion spx prq Delicia Danielson PA-C Work Phone: Start: 10-18-2024 Glucose measurement, blood Mhd Renard Sher MD Work Phone: Start: 10-18-2024 Ct head/brain w/o contrast material David Sutton POURER-DIRECTOR HR COMMUNICATIONS Work Phone: Start: 10-18-2024 ABORH TYPE RECONFIRMATION Britney Lam DO Work Phone: Start: 10-18-2024 Antibody screen MIHAI HAQUE Comment on above: Performed By: #### X M #### [facility] [facility] (DEFAULT) [address] [place] [address] Start: 10-18-2024 End: 10-18-2024 Blood typing serologic abo David Sutton POURER-DIRECTOR HR COMMUNICATIONS Work Phone: Start: 10-18-2024 EXTRA MICRO David Sutton POURER-DIRECTOR HR COMMUNICATIONS Work Phone: Start: 10-18-2024 URINALYSIS REFLEX TO CULTURE David Sutton POURER-DIRECTOR HR COMMUNICATIONS Work Phone: Start: 10-18-2024 Urnls dip stick/tabl et reagent auto microscopy David Ontiverosnett POURER-DIRECTOR HR COMMUNICATIONS Work Phone: Start: 10-18-2024 Ecg routine ecg w/le ast 12 lds trcg only w/o i&r David Vazquez Herman POURER-DIRECTOR HR COMMUNICATIONS Work Phone: Start: 10-18-2024 Bilirubin direct Gary Fraser MD Work Phone: Start: 10-18-2024 CBC AND ELECTRONIC DIFF Gary Fraser MD Work Phone: Start: 10-18-2024 CHM [...] et rgnt auto w/o microscopy Tasha Deutsch POURER.DIRECTOR HR COMMUNICATIONS Work Phone: Start: 09-17-[address] [...] 04-26-2024 Adult depression screening assessment Tasha Deutsch APRN.DIRECTOR HR COMMUNICATIONS Work Phone: Start: 08-18-2023 Arthrocentesis aspir &/inj [...] Ct head/brain w/o contrast material Breann Hajade POURER.DIRECTOR HR COMMUNICATIONS Work Phone: Start: 03-31-2023 Radex shoulder compl [...] on femur minimum 2 views Breann Schmitz APRN.DIRECTOR HR COMMUNICATIONS Work Phone: NEGATED: Highlighted rowStart: 06-22-2021 End: 06-22-2021 Documentation of current medications Belmike Cunningham Plan of Treatment Date Care Activity Detail Author Start: 11-16-2027 Diabetes Screening Diabetes Screening [facility] Start: 11-13-2027 Diabetes Screening Diabetes Screening [facility] Start: 11-04-2027 Diabetes Screening Diabetes Screening [facility] Start: 10-21-2027 Diabetes Screening Diabetes Screening [facility] Start: 10-20-2027 Diabetes Screening Diabetes Screening [facility] Start: 10-05-2027 Diabetes Screening Diabetes Screening [facility] Start: 04-26-2027 Diabetes Screening Diabetes Screening [facility] Start: 08-14-2026 Diabetes Screening Diabetes Screening [facility] Start: 06-04-2026 Diabetes Screening Diabetes Screening [facility] Start: 10-11-2025 DIABETES SCREEN DIABETES SCREEN [facility] Start: 10-11-2025 Diabetes Screening Diabetes Screening [facility] Start: 04-26-2025 Anxiety Screening Anxiety Screening [facility] Start: 04-26-2025 Covid-19 Vaccine () Covid-19 Vaccine () [facility] Comment on above: Postponed from 12/14/2023 (Declined at t his time) Start: 04-26-2025 Depression Screening Depression Screening [facility] Start: 04-26-2025 RSV Vaccine (1 - 1-dose 75+ series) RSV Vaccine (1 - 1-dose 75+ series) [facility] Comment on above: Postponed from 2013 (Declined at t his time) Start: 04-26-2025 Shingrix Vaccine (1 of 2) Shingrix Vaccine (1 of 2) [facility] Comment on above: Postponed from 01/02/1988 (Declined at t his time) Start: 04-26-2025 Urine microalbumin profile DTaP,Tdap,Td Vaccine (1 - Tdap) [facility] Comment on above: Postponed from 1957 (Insurance Cov erage) Start: 02-28-2025 End: 02-28-2025 Patient encounter procedure 02/28/2025 8:20 AM EST Office Visit [facility] [address] [place], [place] [id number] David Wilson MD [address] [phone] Ref; SHERRI for PAF- hlk [facility] Comment on above: Ref; [facility] for PAF- hlk Start: 02-03-2025 End: 02-03-2025 Patient encounter procedure 02/03/2025 4:20 PM EDT Office Visit [facility] [address] [place], [place] [id number] Tasha Deutsch APRN.DIRECTOR HR COMMUNICATIONS [address] [place], [place] [address] 6 month follow up Family [facility] Comment on above: 6 month follow up Start: 12-13-2024 Influenza vaccination [facility] Start: 10-25-2024 End: 10-25-2024 Patient encounter procedure 10/25/2024 1:00 PM EDT Office Visit Family [facility] [address] [place], [place] [id number] Tasha Deutsch APRN.DIRECTOR HR COMMUNICATIONS [address] [place] [address] 6 month follow up [facility] Comment on above: 6 month follow up Start: 10-18-2024 [facility] Start: 10-18-2024 Oxygen therapy [facility] Start: 10-18-2024 [facility] Start: 10-12-2024 End: 10-12-2024 ambulatory 10/12/2024 3:30 PM EDT OT/PT/Speech Visit [facility] [address] [place] [address] Adali Munroe, CCC-MANAGER PULMONARY Approving additional speech therapy [facility] Comment on above: Approving additional speech therapy Start: 10-12-2024 End: 01-11-2025 Bacteria identified in Urine by Culture [facility] Work Phone: Comment on above: Expected: 10/12/2024, Expires: Start: 10-12-2024 Evaluation of diagnostic study results [facility] Start: 10-11-2024 Influenza [facility] Comment on above: Postponed from 12/14/2023 (Declined at t his time) Start: 10-04-2024 End: 01-03-2025 25-hydroxyvitamin D3 [Mass/volume] in Serum or Plasma [facility] Comment on above: Expected: 10/04/2024, Expires: Start: 10-04-2024 End: 01-03-2025 Basic metabolic 2000 panel - Serum or Plasma [facility] Comment on above: Expected: 10/04/2024, Expires: Start: 10-04-2024 End: 01-03-2025 Cobalamin (Vitamin B12) [Mass/volume] in Serum or Plasma [facility] Comment on above: Expected: 10/04/2024, Expires: Start: 10-04-2024 End: 01-03-2025 Ferritin [Mass/volume] in Serum or Plasma [facility] Comment on above: Expected: 10/04/2024, Expires: Start: 10-04-2024 End: 01-03-2025 Iron and Iron binding capacity panel - Serum or Plasma [facility] Work Phone: Comment on above: Expected: 10/04/2024, Expires: Start: 10-04-2024 End: 10-04-2024 Patient encounter procedure 10/04/2024 10:40 AM EDT Office Visit [facility] [address] [facility] [place] [address] Tasha Deutsch APRN.DIRECTOR HR COMMUNICATIONS [address] [place] [address] [facility] f/u stroke 09/19 [facility] Comment on above: [facility] f/u stroke 09/19 Start: 09-19-2024 Patient discharge [facility] Start: 09-17-2024 Speech therapy management [facility] Start: 09-17-2024 Referral to service [facility] Start: 09-15-2024 [facility] Start: 08-30-2024 Catheterization of vein [facility] Start: 08-23-2024 Following clinical pathway protocol [facility] Start: 08-23-2024 [facility] Start: 08-23-2024 Catheterization of vein [facility] Start: 08-22-2024 Recommendation to continue with treatment [facility] Start: 08-22-2024 Urinary bladder training [facility] Start: 08-22-2024 Admission procedure [facility] Start: 08-22-2024 Measuring intake and output [facility] Start: 08-22-2024 Patient referral to dietitian [facility] Start: 08-22-2024 Referral to service [facility] Start: 08-22-2024 Vital signs measurements [facility] Start: 08-22-2024 Wound care [facility] Start: 08-22-2024 [facility] Start: 08-22-2024 Referral to occupational therapist [facility] Start: 08-22-2024 Patient discharge [facility] Start: 08-22-2024 Speech therapy assessment [facility] Start: 08-18-2024 Aspiration precautions [facility] Start: 08-18-2024 Assessment of risk of venous thromboembolism [facility] Start: 08-18-2024 Cardiac monitoring [facility] Start: 08-18-2024 Catheterization of vein [facility] Start: 08-18-2024 Consultation [facility] Start: 08-18-2024 Continuous pulse oximetry [facility] Start: 08-18-2024 Elevation of head of bed [facility] Start: 08-18-2024 Exercises [facility] Start: 08-18-2024 Inhalation therapy procedure [facility] Start: 08-18-2024 Insertion of catheter into peripheral vein [facility] Start: 08-18-2024 Measuring intake and output [facility] Start: 08-18-2024 Notification of physician [facility] Start: 08-18-2024 Patient referral to dietitian [facility] Start: 08-18-2024 Providing care according to standard [facility] Start: 08-18-2024 Provision of activity privileges [facility] Start: 08-18-2024 Referral to occupational therapist [facility] Start: 08-18-2024 Referral to service [facility] Start: 08-18-2024 Speech therapy assessment [facility] Start: 08-18-2024 Telemedicine consultation with patient [facility] Start: 08-18-2024 Tobacco use cessation education [facility] Start: 08-18-2024 End: 08-18-2024 [facility] Start: 08-18-2024 Vital signs measurements [facility] Start: 08-18-2024 Following clinical pathway protocol [facility] Start: 08-18-2024 Hospital admission, emergency, from emergency room, medical nature [facility] Start: 08-18-2024 Bacteria identified in Blood by Culture Blood Culture [facility] Start: 08-18-2024 Bacteria identified in Urine by Culture Urine Culture [facility] Start: 08-18-2024 Blood culture Blood Culture [facility] Start: 08-18-2024 MRI of brain without contrast Brain without Contrast [facility] Start: 08-18-2024 Verification routine [facility] Start: 08-18-2024 Admission procedure [facility] Start: 08-18-2024 End: 08-18-2024 [facility] Start: 08-18-2024 [facility] Start: 08-18-2024 Consultation [facility] Start: 08-16-2024 [facility] Start: 08-16-2024 Emergency department visit moderate severity EMERGENCY DEPT VISIT LOW MDM [facility] Start: 08-16-2024 Iv infusion hydration each additional hour HYDRATE IV INFUSION ADD-ON [facility] Start: 08-16-2024 Iv infusion hydration initial 31 min-1 hour HYDRATION IV INFUSION INIT [facility] Start: 08-02-2024 DIABETES SCREEN DIABETES SCREEN [facility] Start: 04-26-2024 End: 07-26-2024 25-hydroxyvitamin D3 [Mass/volume] in Serum or Plasma [facility] Comment on above: Expected: 04/26/2024, Expires: Start: 04-26-2024 End: 07-26-2024 CBC W Auto Differential panel - Blood [facility] Work Phone: Comment on above: Expected: 04/26/2024, Expires: Start: 04-26-2024 End: 07-26-2024 Cobalamin (Vitamin B12) [Mass/volume] in Serum or Plasma [facility] Comment on above: Expected: 04/26/2024, Expires: Start: 04-26-2024 End: 07-26-2024 Comprehensive metabolic 2000 panel - Serum or Plasma [facility] Comment on above: Expected: 04/26/2024, Expires: Start: 04-26-2024 End: 07-26-2024 Ferritin [Mass/volume] in Serum or Plasma [facility] Comment on above: Expected: 04/26/2024, Expires: Start: 04-26-2024 End: 07-26-2024 Hemoglobin A1c in Blood [facility] Comment on above: Expected: 04/26/2024, Expires: Start: 04-26-2024 End: 07-26-2024 Iron and Iron binding capacity panel - Serum or Plasma [facility] Comment on above: Expected: 04/26/2024, Expires: Start: 04-26-2024 End: 07-26-2024 LIPID PANEL, NONFASTING [facility] Comment on above: Expected: 04/26/2024, Expires: Start: 04-26-2024 End: 07-26-2024 Magnesium [Mass/volume] in Serum or Plasma [facility] Comment on above: Expected: 04/26/2024, Expires: Start: 04-26-2024 End: 04-26-2024 Patient encounter procedure 04/26/2024 10:00 AM EST Office Visit [facility] [address] [place], [place] [id number] Tasha Deutsch APRN.DIRECTOR HR COMMUNICATIONS [address] [facility] [place] [id number] 6 month follow up [facility] Comment on above: 6 month follow up Start: 04-14-2024 Advance Directive Discussion Advance Directive Discussion [facility] Start: 04-14-2024 Medicare Advantage Annual Wellness Visit Medicare Advantage Annual Wellness Visit [facility] Start: 03-31-2024 Covid-19 Vaccine () Covid-19 Vaccine () [facility] Comment on above: Postponed from 12/13/2022 (Declined at t his time) Start: 03-31-2024 Shingrix Vaccine (1 of 2) Shingrix Vaccine (1 of 2) [facility] Comment on above: Postponed from 01/02/1988 (Insurance Cov erage) Start: 03-31-2024 Urine microalbumin profile DTaP,Tdap,Td Vaccine (1 - Tdap) [facility] Comment on above: Postponed from 1957 (Insurance Cov erage) Start: 12-14-2023 Covid-19 Vaccine () Covid-19 Vaccine () [facility] Start: 12-14-2023 Covid-19 Vaccine () Covid-19 Vaccine () [facility] Start: 12-14-2023 Influenza vaccination [facility] Start: 12-14-2023 [facility] Start: 10-29-2023 Screening for osteoporosis [facility] Start: 10-27-2023 End: 10-27-2023 Patient encounter procedure 10/27/2023 9:40 AM EDT Office Visit [facility] [address] [facility] [place] [address] Jose G Harrington PA-C [address] [place] [address] 6 month f/u [facility] Comment on above: 6 month f/u Start: 10-25-2023 COVID-19 VACCINE (5 - Moderna series) COVID-19 VACCINE (5 - Moderna series) [facility] Comment on above: Postponed from 06/09/2022 (Declined at t his time) Start: 10-12-2023 Influenza vaccination Influenza Vaccine (#1) [facility] Comment on above: Postponed from 12/13/2022 (Declined at t his time) Start: 08-18-2023 End: 08-18-2023 Patient encounter procedure 08/18/2023 11:30 AM EDT Office Visit Orthopaedics [address] [place], [place] [id number] Tamia Quezada PA-C [address] [place] [address] left knee Euflexxa #3 [facility] Comment on above: left knee Euflexxa #3 Start: 08-16-2023 DIABETES SCREEN DIABETES SCREEN [facility] Start: 08-15-2023 End: 08-15-2023 Patient encounter procedure 08/15/2023 10:00 AM EDT Office Visit [facility] [address] [place] [address] Tasha Deutshc APRN.FIELD SEISMOLOGIST [address] [place] [address] 4 week follow up HTN [facility] Comment on above: 4 week follow up HTN Start: 08-11-2023 End: 08-11-2023 Patient encounter procedure 08/11/2023 11:30 AM EDT Office Visit Orth[facility] [address] [place] [address] Tamia Quezada PA-C [address] [place] [address] left knee Euflexxa #2 [facility] Comment on above: left knee Euflexxa #2 Start: 07-30-2023 End: 10-29-2023 Bacteria identified in Urine by Culture URINE CULTURE Microbiology Routine Acute right-sided low back pain without sciatica Urinary tract infection with hematuria, site unspecified Expected: 07/30/2023, Expires: 10/29/2023 [facility] Work Phone: Comment on above: Expected: 07/30/2023, Expires: Start: 07-30-2023 End: 10-29-2023 Urinalysis complete panel - Urine URINALYSIS, WITH MICROSCOPIC Lab Routine Urinary tract infection with hematuria, site unspecified Expected: 07/30/2023, Expires: 10/29/2023 [facility] Work Phone: Comment on above: Expected: 07/30/2023, Expires: Start: 06-02-2023 End: 09-01-2023 25-hydroxyvitamin D3 [Mass/volume] in Serum or Plasma VITAMIN D 25 HYDROXY Lab Routine Vitamin D deficiency Expected: 06/02/2023, Expires: 09/01/2023 [facility] Work Phone: Comment on above: Expected: 06/02/2023, Expires: 4 Start: 06-02-2023 End: 09-01-2023 CBC W Auto Differential panel - Blood CBC + DIFF Lab Routine DDD (degenerative disc disease), cervical Primary hypertension Expected: 06/02/2023, Expires: 09/01/2023 [facility] Work Phone: Comment on above: Expected: 06/02/2023, Expires: 4 Start: 06-02-2023 End: 09-01-2023 Cobalamin (Vitamin B12) [Mass/volume] in Serum or Plasma VITAMIN B12 BLOOD Lab Routine Vitamin B12 deficiency Expected: 06/02/2023, Expires: 09/01/2023 [facility] Work Phone: Comment on above: Expected: 06/02/2023, Expires: 4 Start: 06-02-2023 End: 09-01-2023 Comprehensive metabolic 2000 panel - Serum or Plasma COMP METABOLIC PANEL Lab Routine Primary hypertension Expected: 06/02/2023, Expires: 09/01/2023 [facility] Work Phone: Comment on above: Expected: 06/02/2023, Expires: Start: 06-02-2023 End: 09-01-2023 Magnesium [Mass/volume] in Serum or Plasma MAGNESIUM BLD Lab Routine Primary hypertension Expected: 06/02/2023, Expires: 09/01/2023 [facility] Work Phone: Comment on above: Expected: 06/02/2023, Expires: 4 Start: 06-02-2023 End: 09-01-2023 Thyrotropin [Units/volume] in Serum or Plasma TSH BLD Lab Routine Dizziness Expected: 06/02/2023, Expires: 09/01/2023 [facility] Work Phone: Comment on above: Expected: 06/02/2023, Expires: Start: 04-14-2023 Behavioral Health Screening Behavioral Health Screening [facility] Start: 04-13-2023 DEPRESSION ASSESSMENT DEPRESSION ASSESSMENT [facility] Comment on above: Postponed from 04/14/2022 (Declined at t his time) Start: 12-13-2022 Influenza vaccination [facility] Start: 10-29-2022 SHINGRIX VACCINE (1 of 2) SHINGRIX VACCINE (1 of 2) [facility] Comment on above: Postponed from 01/02/1988 (Insurance Cov erage) Start: 10-29-2022 Urine microalbumin profile DTAP,TDAP,TD (1 - Tdap) [facility] Comment on above: Postponed from 1957 (Insurance Cov erage) Start: 10-11-2022 Influenza vaccination INFLUENZA (#1) [facility] Comment on above: Postponed from 12/13/2021 (Declined at t his time) Start: 10-10-2022 End: 12-10-2022 25-hydroxyvitamin D3 [Mass/volume] in Serum or Plasma VITAMIN D 25 HYDROXY Lab Routine Vitamin D deficiency Expected: 10/10/2022, Expires: 12/10/2022 [facility] Work Phone: Comment on above: Expected: 10/10/2022, Expires: 3 Start: 10-10-2022 End: 12-10-2022 CBC W Auto Differential panel - Blood CBC + DIFF Lab Routine Chronic renal insufficiency, stage 3 (moderate) (HCC) Iron deficiency anemia, unspecified iron deficiency anemia type Expected: 10/10/2022, Expires: 12/10/2022 [facility] Work Phone: Comment on above: Expected: 10/10/2022, Expires: 3 Start: 10-10-2022 End: 12-10-2022 Comprehensive metabolic 2000 panel - Serum or Plasma COMP METABOLIC PANEL Lab Routine Chronic renal insufficiency, stage 3 (moderate) (HCC) Expected: 10/10/2022, Expires: 12/10/2022 [facility] Work Phone: Comment on above: Expected: 10/10/2022, Expires: 3 Start: 10-10-2022 End: 12-10-2022 Magnesium [Mass/volume] in Serum or Plasma MAGNESIUM BLD Lab Routine Chronic renal insufficiency, stage 3 (moderate) (HCC) Expected: 10/10/2022, Expires: 12/10/2022 [facility] Work Phone: Comment on above: Expected: 10/10/2022, Expires: 3 Start: 04-14-2022 ADVANCE DIRECTIVE DISCUSSION ADVANCE DIRECTIVE DISCUSSION [facility] Start: 04-14-2022 DEPRESSION ASSESSMENT DEPRESSION ASSESSMENT [facility] Start: 04-07-2022 [facility] Work Phone: Start: 12-13-2021 Influenza vaccination [facility] Start: 09-01-2021 Screening for malignant neoplasm of colon [facility] Start: 08-01-2021 End: 10-01-2021 Basic metabolic 2000 panel - Serum or Plasma BASIC METABOLIC PNL Lab Routine Iron deficiency anemia due to chronic blood loss Expected: 08/01/2021, Expires: 10/01/2021 [facility] Work Phone: Comment on above: Expected: 08/01/2021, Expires: 2 Start: 08-01-2021 End: 10-01-2021 CBC panel - Blood by Automated count CBC Lab Routine Chronic renal insufficiency, stage 3 (moderate) (HCC) Expected: 08/01/2021, Expires: 10/01/2021 [facility] Work Phone: Comment on above: Expected: 08/01/2021, Expires: 2 Start: 08-01-2021 End: 10-01-2021 FERRITIN BLD FERRITIN BLD Lab Routine Iron deficiency anemia due to chronic blood loss Expected: 08/01/2021, Expires: 10/01/2021 [facility] Work Phone: Comment on above: Expected: 08/01/2021, Expires: 2 Start: 08-01-2021 End: 10-01-2021 IRON + TIBC IRON + TIBC Lab Routine Iron deficiency anemia due to chronic blood loss Expected: 08/01/2021, Expires: 10/01/2021 [facility] Work Phone: Comment on above: Expected: 08/01/2021, Expires: 2 Start: 06-22-2021 End: 06-22-2021 Patient encounter procedure Appointment [facility] Work Phone: Start: 04-14-2021 ADVANCE DIRECTIVE DISCUSSION ADVANCE DIRECTIVE DISCUSSION [facility] Start: 11-06-2020 COVID-19 VACCINE (3 - Booster for Moderna series) COVID-19 VACCINE (3 - Booster for Moderna series) [facility] Start: 03-20-2015 PNEUMOCOCCAL: 65+ (2 - PCV) PNEUMOCOCCAL: 65+ (2 - PCV) [facility] Start: 2013 RSV Vaccine (1 - 1-dose 75+ series) RSV Vaccine (1 - 1-dose 75+ series) [facility] Start: 2013 [facility] Start: 1998 RSV Vaccine (1 - 1-dose 60+ series) RSV Vaccine (1 - 1-dose 60+ series) [facility] Start: 01-02-1988 SHINGRIX VACCINE (1 of 2) SHINGRIX VACCINE (1 of 2) [facility] Start: 01-02-1988 [facility] Start: 1978 Screening for malignant neoplasm of breast [facility] Start: 1959 Screening for malignant neoplasm of cervix [facility] Start: 1957 Third diphtheria, tetanus and acellular pertussis (DTaP) vaccination [facility] Start: 1957 Urine microalbumin profile [facility] Start: 01-02-1956 Anxiety Screening Anxiety Screening [facility] Start: 01-02-1956 Depression Screening Depression Screening [facility] Start: 1938 Tetanus vaccination [facility] Bacteria identified in Urine by Culture URINE CULTURE Microbiology Routine Acute right-sided low back pain without sciatica Urinary tract infection with hematuria, site unspecified 07/16/2023 2:28 PM EDT [facility] Work Phone: End: 06-24-2024 CT Head WO contrast CT BRAIN WO IVCON Radiology STAT Transient cerebral ischemia, unspecified type 1 Occurrences starting 05/26/2023 until 06/24/2024 [facility] Work Phone: Comment on above: 1 Occurrences starting 05/26/2023 until 06/24/2024 End: 08-06-2024 CT Neck W contrast IV CTA NECK W IVCON Radiology Routine Bilateral carotid artery stenosis Occlusion and stenosis of unspecified carotid artery Fibromuscular dysplasia (HCC) 1 Occurrences starting 07/08/2023 until 08/06/2024 [facility] Work Phone: Comment on above: 1 Occurrences starting 07/08/2023 until 08/06/2024 End: 08-06-2024 CTA Head Arteries W contrast IV CTA HEAD W IVCON Radiology Routine Bilateral carotid artery stenosis Occlusion and stenosis of unspecified carotid artery Fibromuscular dysplasia (HCC) 1 Occurrences starting 07/08/2023 until 08/06/2024 [facility] Work Phone: Comment on above: 1 Occurrences starting 07/08/2023 until 08/06/2024 End: 11-09-2023 DXA-AXIAL SKELETON DXA-AXIAL SKELETON Radiology Routine Asymptomatic menopause 1 Occurrences starting 10/10/2022 until 11/09/2023 [facility] Work Phone: Comment on above: 1 Occurrences starting 10/10/2022 until 11/09/2023 End: 12-25-2023 ECG COMPLETE ECG COMPLETE ECG Routine Paroxysmal atrial fibrillation (HCC) 1 Occurrences starting 12/24/2022 until 12/25/2023 [facility] Work Phone: Comment on above: 1 Occurrences starting 12/24/2022 until 12/25/2023 Hemoglobin A1c/Hemoglobin.total in Blood [facility] OUTSIDE VENDOR CARDI AC OUTPATIENT EXTENDED RHYTHM RECORDING (WITHOUT TELEMETRY) OUTSIDE VENDOR CARDIAC OUTPATIENT EXTENDED RHYTHM RECORDING (WITHOUT TELEMETRY) Holter Routine Paroxysmal atrial fibrillation (HCC) Ordered: 04/11/2022 [facility] Work Phone: Comment on above: Ordered: 04/11/2022 Patient Education [facility] Work Phone: Patient referral [facility] Work Phone: Troponin T.cardiac [Mass/volume] in Serum or Plasma by High sensitivity method [facility] Urinalysis complete panel - Urine URINALYSIS WITH MICROSCOPIC, REFLEX CULTURE Lab Routine Urinary urgency 04/05/2024 4:01 PM EST [facility] Work Phone: Urine culture [facility] End: 05-26-2024 US Carotid arteries - bilateral US CAROTID ARTERIES [facility] Vascular Lab Routine Right carotid bruit 1 Occurrences starting 05/26/2023 until 05/26/2024 [facility] Work Phone: Comment on above: 1 Occurrences starting 05/26/2023 until 05/26/2024 [facility] Immunizations Immunization Date Immunization Notes Care Provider Mile ramon 02-06-2022 COVID-19 vaccine, ag e 12+ yr, bivalent (MODERNA) Julee Last'Kirk PT [facility] 03-12-2021 COVID-19 original vaccine, full dose, monovalent (MODERNA) Julee Last'Kirk PT [facility] 06-09-2020 Covid (Moderna) [facility] 05-12-2020 Covid (Moderna) [facility] 01-28-2018 influenza virus vacc ine, unspecified formulation Sandra Horne MD Work Phone: [facility] 05-24-2015 pneumococcal conjuga te vaccine, 13 valent NA Harrington PA-C Work Phone: [facility] 10-07-2014 tuberculin skin test ; purified protein derivative solution, intradermal Tasha Suppan POURER.DIRECTOR HR COMMUNICATIONS Work Phone: [facility] 03-20-2014 pneumococcal polysaccharide vaccine, 23 valent Jazmyne Bernabe RN [facility] Work Phone: 06-11-2011 tuberculin skin test ; purified protein derivative solution, intradermal Tasha Suppan POURER.DIRECTOR HR COMMUNICATIONS Work Phone: [facility] 06-04-2011 tuberculin skin test ; purified protein derivative solution, intradermal Tasha Suppan POURER.DIRECTOR HR COMMUNICATIONS Work Phone: [facility] 03-16-2007 influenza, seasonal, injectable NA Harrington PA-C Work Phone: [facility] 03-16-2007 pneumococcal polysaccharide vaccine, 23 valent NA Harrington PA-C Work Phone: [facility] Payers Date Payer Category Payer Self-pay [id number] 2024 Private Health Insurance [employer] [id number] 2021 Medicare A[employer] MEDICARE A ETNA MEDICARE PPO [id number] 2021-Present [phone] [address] [place] [address] PPO [id number] 2021 Medicare [employer]NA MEDICARE A ETNA MEDICARE PPO [id number] 2021-Present [phone] [id number] [place] [id number] PPO [id number] 2021 Medicare (Managed Care) 1.2. [id number] 2021 Private Health Insurance [id number] 1940 Unknown [id number] 2.16.840.1.859397.3.579.2. 594 Medicare MEDICARE PART A B [id number] Unknown [id number] Unknown [id number] 2.16.840.1.373917.3.579.2. 462 Unknown [id number] 2.16840.1.847098.3.579.2. 462 Unknown [id number] 2.16840.1.433414.3.579.2. 462 Unknown [id number] 2.16840.1.640844.3.579.2. 462 Unknown [id number] 2.840.1.425120.3.579.2. 462 Unknown [id number] 2.840.1.725895.3.579.2. 462 Unknown [id number] 2.840.1.997516.3.579.2. 462 Unknown [id number] 2.840.1.497297.3.579.2. 462 Unknown [id number] 2.840.1.200873.3.579.2. 462 Unknown [id number] 2.840.1.964599.3.579.2. 462 Unknown [id number] 2.840.1.245695.3.579.2. 462 Unknown [id number] 2.840.1.206537.3.579.2. 462 Unknown [id number] 2.840.1.765852.3.579.2. 462 Unknown [id number] 2.840.1.969533.3.579.2. 462 Unknown [id number] 2.840.1.156014.3.579.2. 462 Unknown [id number] 2.840.1.450299.3.579.2. 462 Unknown [id number] 2.840.1.749953.3.579.2. 462 Unknown [id number] 2.840.1.039888.3.579.2. 462 Unknown [id number] 2.840.1.813247.3.579.2. 462 Unknown [id number] 2.16.840.1.670307.3.579.2. 462 Unknown [id number] 2.16.840.1.581929.3.579.2. 462 Unknown [id number] 2.16.840.1.461784.3.579.2. 462 Unknown [id number] 2.16.840.1.549550.3.579.2. 462 Unknown [id number] 2.16.840.1.519798.3.579.2. 462 Unknown [id number] 2.16.840.1.400395.3.579.2. 462 Unknown [id number] 2.16.840.1.875760.3.579.2. 462 Unknown [id number] 2.16.840.1.128878.3.579.2. 462 Unknown [id number] 2.16.840.1.513611.3.579.2. 462 Unknown [id number] 2.16.840.1.061660.3.579.2. 462 Unknown [id number] 2.16.840.1.058008.3.579.2. 462 Social History Date Type Detail Facility Start: 06-22-2021 End: 06-22-2021 Assertion Unknown if ever smoked [facility] Work Phone: Start: 08-27-2011 End: 04-11-2022 Tobacco smoking status NHIS Never smoked tobacco [facility] Start: 08-27-2011 End: 04-11-2022 Tobacco use and exposure Smokeless tobacco non-user [facility] Start: 02-20-2021 End: 10-12-2024 Alcohol intake Current non-drinker of alcohol (finding) [facility] Start: 1940 Sex Assigned At Not on file [facility] Start: 05-14-2021 End: 10-26-2021 Exposure to SARS-CoV-2 (event) Not sure [facility] Start: 1940 Sex Assigned At Female [facility] Start: 10-10-2022 End: 10-24-2022 History of Social function [facility] Work Phone: Start: 10-10-2022 End: 10-24-2022 Tobacco use panel [facility] Work Phone: Start: 03-15-2012 Adult Depression Screening Assessment 0 [facility] Work Phone: Start: 05-02-2022 Gender identity Identifies as female gender (finding) [facility] Start: 05-02-2022 Sexual orientation Heterosexual (finding) [facility] Has the [employer], or [employer] threatened to shut off services in your home in past 12Mo No [facility] Do you belong to any clubs or organizations such as yarsanism groups, unions, fraternal or athletic groups, or school groups? Yes [facility] Are you now , , , , never or living with a partner? [facility] How often to you hav e a drink containing alcohol? Never [facility] Do you feel stress - tense, restless, nervous, or anxious, or unable to sleep at night because your mind is troubled all the time - these days [OSQ] Not at all [facility] (I/We) worried wheramon er (my/our) food would run out before (I/we) got money to buy more. Never true [facility] Start: 08-22-2024 Tobacco Use Tobacco Use [facility] How hard is it for y ou to pay for the very basics like food, housing, medical care, and heating Not very hard [facility] Start: 11-12-2024 Alcoholic beverage intake Lifetime non-drinker (finding) [facility] Start: 08-18-2024 Sex Female (finding) [facility] Medical Equipment Procedure Code Equipment Code Equipment Origin al Text Equipment Identifier Dates Acetabular Shell [id number] Start: 05-30-2011 Hole Eliminator Screw [id number] Start: 05-30-2011 Xdo-Tp-M-Kind Implant - [id number] Start: 05-30-2011 Comment on above: Description: Corial stem Udd-Gj-S-Kind Implant - [id number]_[facility] Start: 05-30-2011 Comment on above: Description: pinnacl e poly shelly jimena Oqu-Sl-W-Kind Implant - [id number]_[facility] Start: 05-30-2011 Comment on above: Description: articul /claude femoral head Corail Stem [id number] Start: 10-03-2014 Acetabular Shell [id number] Start: 10-03-2014 [place] Hole Eliminator Screw [id number] Start: 10-03-2014 Femoral Head [id number]_[facility] Start: 10-03-2014 Acetabular Liner [id number] Start: 10-03-2014 Goals Date Patient Goal Desired Activity /State Functional Status Date Assessment Result Facility 09-27-2024 Total score [AUDIT-C] 0 09/28/19 12:57 PM EDT User, Dennyalexandert [facility] 09-27-2024 How often to you hav e a drink containing alcohol? Never 09/27/2024 12:57 PM EDT User, Mychart Never [facility] 09-27-2024 Functional status Patient does n ot drink 09/27/2024 12:57 PM EDT User, PetroDEhart Patient does not drink [facility] 09-27-2024 How often do you hav e 6 or more drinks on 1 occasion? Never 09/27/2024 12:57 PM EDT User, Mychart Never [facility] 09-19-2024 Functional status Bathroom Privilege [facility] Work Phone: 08-22-2024 Functional status Activity Abili ty With Assist of 1;With Assist of 2 [facility] Work Phone: 08-21-2024 Functional status Bedrest [facility] Work Phone: Mental Status Date Assessment Result Facility 10-18-2024 Cognitive function Voice/Name [facility] Work Phone: 09-19-2024 Cognitive function Voice/Name [facility] Work Phone: 09-18-2024 Cognitive function Appropriate;Cooperativ e [facility] Work Phone: 08-22-2024 Cognitive function Voice/Name [facility] Work Phone: 08-18-2024 Cognitive function Voice/Name [facility] Work Phone: 08-16-2024 Cognitive function Voice/Name [facility] Work Phone: Clinical Notes 07-28-2017 to 01-05-2025 Telephone Encounter - Tasha Deutsch APRN.[facility] - 12/06/2024 7:41 AM EDTTelephone Encounter - Tasha Deutsch APRN.[facility] - 12/06/2024 7:41 AM VINAYAK ChaudhryW - 11/16/2024 10:38 AM EDT Note Date & Type Note Facility 01-05-2025 Note HNO ID: [id number] Author: ?, ?, ? Service: ? Author Type: ? Type: Progress Notes Filed: 01/05/2025 15:46 Note Text: POPULATION HEALTH NAVIGATION OUTREACH Action/I Returned Mychart/Call Patient in detention facility Reason for Outreach Returned Call/MyChart Patient Contacted: Spoke to patient/parent/or legal guardian Patient identified by name and date of : Yes Returned call/MyChart actions taken: Patient in detention facility Navigation Signature: Ana Luisa Paige January 05, 2025 3:45 PM [facility] 01-05-2025 Note HNO ID: [id number] Author: ?, ?, ? Service: ? Author Type: ? Type: Progress Notes Filed: 01/05/2025 15:02 Note Text: POPULATION HEALTH NAVIGATION OUTREACH Action/FYI - [facility] Wellness: Never Done Flu: Due for dose [...] Luisa Paige January 05, 2025 2:46 PM [facility] 01-05-2025 Note Patient Outreach (ALYSSA TNAV) BEHZAD HAY ([id number]) 1940 F Date Time Provider Department 01/05/25 TASHA DEUTSCH During your visit today, we recorded the following information about you: Ana Luisa Paige 01/05/2025 3:02 PM Signed POPULATION HEALTH NAVIGATION OUTREACH Action/ - [facility] Wellness: Never Done Flu: Due for dose 1 since 12/13/2024 Called Patient: "Call cannot be completed as dialed" - MyChart Sent Reason for Outreach Care Gap/HCC or Scheduling Wellness Visits Care Gaps due: Medicare Annual Wellness Visit Flu Vaccine Patient Contacted: Unable or unnecessary to reach patient: Unable to leave message GPX Software[employer] message sent Navigation Signature: Ana Luisa Paige January 05, 2025 2:46 PM Ana Luisa Paige 01/05/2025 3:46 PM Signed POPULATION HEALTH NAVIGATION OUTREACH Action/ Returned Mychart/Call Patient in detention facility Reason for Outreach Returned Call/MyChart Patient Contacted: Spoke to patient/parent/or legal guardian Patient identified by name and date of : Yes Returned call/MyChart actions taken: Patient in detention facility Navigation Signature: Ana Luisa Paige January 05, 2025 3:45 PM Allergies As of Date: 01/05/2025 Noted Allergy Reaction ADHESIVE TAPE (ROSINS) 08/27/2011 2 - Rash BACTRIM (SULFAMETHOXAZOLE-TRIMETH* 019 2 - Rash MACROBID (NITROFURANTOIN MONOHYD/*09/25/2018 2 - Rash MBPKVSX-UOA-[id number] REDUCTASE INHIBIT*10/06/2014 5 - Intolerance Comments: severe [...] hip [M16.11] 02/27/2017 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] 07/28/2017 07/06/2018 Collagenous colitis [K52.831] 12/21/2018 IBS (irritable bowel syndrome) [K58.9] 12/21/2018 Hiatal hernia [K44.9] 09/11/2020 Fall from standing [W19.XXXA] 06/05/2021 Rotator cuff tear arthropathy, left [M75.102, M*10/29/2021 Paroxysmal atrial fibrillation (HCC) [I48.0] 04/11/2022 Primary hypertension [I10] 12/30/2022 Acute pain of right shoulder [M25.511] 04/16/2023 Severe pain of left shoulder [M25.512] 04/16/2023 Cervicalgia [M54.2] 04/16/2023 Encounter Status:Closed by ANA LUISA PAIGE on 01/05/25 [facility] 12-31-2024 Note HNO ID: [id number] Author: ?, ?, ? Service: ? Author Type: ? Type: Progress Notes Filed: 12/31/2024 09:46 Note Text: Patient is identified through a medication adherence outreach initiative based on pharmacy claims data from: [employer] Medication Adherence Category: Hypertension First Review Attribution Status: Questionable attribution, Med not prescribed by [facility] provider, but no [facility] primary care/Patient is seen by a [facility] provider Ishmael Romo [facility] 12-31-2024 Note Patient Outreach (PH POHE) BHARTIBEHZAD Lugo ([id number]) 1940 F Date Time Provider Department 12/31/24 [...] seen by a [facility] provider Ishmael Romo [facility] Team Allergies As of Date: 12/31/2024 Noted Allergy Reaction ADHESIVE TAPE (ROSINS) 08/27/2011 2 - Rash BACTRIM (SULFAMETHOXAZOLE-TRIMETH* 019 2 - Rash MACROBID (NITROFURANTOIN MONOHYD/*09/25/2018 2 - Rash DBCMISM-XQA-TIX REDUCTASE INHIBIT*10/06/2014 5 - Intolerance Comments: severe [...] hip [M16.11] 02/27/2017 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] 07/28/2017 07/06/2018 Collagenous colitis [K52.831] 12/21/2018 IBS (irritable bowel syndrome) [K58.9] 12/21/2018 Hiatal hernia [K44.9] 09/11/2020 Fall from standing [W19.XXXA] 06/05/2021 Rotator cuff tear arthropathy, left [M75.102, M*10/29/2021 Paroxysmal atrial fibrillation (HCC) [I48.0] 04/11/2022 Primary hypertension [I10] 12/30/2022 Acute pain of right shoulder [M25.511] 04/16/2023 Severe pain of left shoulder [M25.512] 04/16/2023 Cervicalgia [M54.2] 04/16/2023 Encounter Status:Closed by ISHMAEL ROMO on 12/31/24 [facility] 12-06-2024 Telephone encounter Note Ok. You always have the final say. Please continue low dose aspirin. [facility] 12-06-2024 Miscellaneous Notes Ok. You always have [...] Beth Obregon MA documented in this encounter [facility] 12-03-2024 Telephone encounter Note The discharge summary from her hospital stay said: If unable to get a Watchman resume home Eliquis in 1 month poststroke November 18 and then stop aspirin. I know Behzad did not want to be on blood thinners prior to her stroke. [facility] 12-03-2024 Telephone encounter Note See message and advise. Beth Obregon MA [facility] 11-23-2024 Telephone encounter Note Patient was admitted to [facility] on October 18, 2024 and discharged on November 16, 2024 for basal ganglia hemorrhage Patient is an 84-year-old female with a history of atrial fibrillation on Eliquis last dose October 18 in the morning, hypertension, hyperlipidemia who presented from [place] with an L. thalamic intracranial hemorrhage. LKW [...] therapy. She is being discharged to a detention facility in stable condition. Discharge plan has [...] mobility is normal. No regurgitation. No stenosis. [facility] 11-23-2024 Miscellaneous Notes Patient was admitted to [facility] on October 18, 2024 and discharged on November 16, 2024 for basal ganglia hemorrhage Patient is an 84-year-old female with a history of atrial fibrillation on Eliquis last dose October 18 in the morning, hypertension, hyperlipidemia who presented from [place] with an L. thalamic intracranial hemorrhage. LKW 2100 October 17. Patient awoke at 6 AM October 18 with some right sided weakness was found in her home by her health aide at 9 AM slumped against the wall with right-sided weakness, right facial droop, dysarthria. NIHSS on arrival [facility] ED [facility] [...] therapy. She is being discharged to a detention facility in stable condition. Discharge plan has [...] regurgitation. No stenosis. documented in this encounter [facility] 11-16-2024 Miscellaneous Notes Stroke patient education has [...] and safety in ADLs. Outcome: Progressing Problem: MANAGER PULMONARY - Language Goal: Command Following - Patient [...] try to vault side-rail with restraints applied. FLOOR WAXER requested to be pulled from floor to [...] skin and external bumper. - If used terminal system operator, PEG should be changed every 3 - [...] x3-5 sessions 11/09/2024 1249 by Shantal Mclean, MANAGER PULMONARY Outcome: Ongoing Goal: Bolus challenge - Patient will accept trials of thin liquids x10-15 trials, given moderate cues for use of strategies to improve bolus control/timing of swallow initiation with no signs of aspiration to determine readiness for repeat study 11/09/2024 1249 by Shantal Mclean, MANAGER PULMONARY Outcome: Ongoing Goal: Swallow Strategy (Oral)- Patient [...] and safety in ADLs. Outcome: Progressing Problem: MANAGER PULMONARY - Language Goal: Command Following - Patient [...] readiness for repeat instrumental. Outcome: Ongoing Problem: MANAGER PULMONARY - Language Goal: Command Following - Patient [...] navigate home and community. Outcome: Progressing Problem: MANAGER PULMONARY - Language Goal: Command Following - Patient [...] Goal: Effective Communication Skills Outcome: Progressing Problem: MANAGER PULMONARY - Language Goal: Command Following - Patient [...] cross their legs. Pillow support applied using [place] pillow beneath feet and heels and standard [...] notified of assessment and plan. Please page #[phone] or reconsult with any further needs. Problem: [...] 7/7 AM), HTN, HLD who presents from [facility] with L thalamic ICH with hosp course [...] Hepatology, and Nutrition Clinical Fellow PGY-4 Pager: [phone] Problem: Adult Inpatient Plan of Care Goal: [...] Please advise. Thanks, Arianna Wong RN, Ph: [phone] Above page sent to VIDYA Michelle. 10/29/24 [...] and safety in ADLs. Outcome: Progressing Problem: MANAGER PULMONARY - Language Goal: Command Following - Patient [...] labs. RD to continue to follow. Problem: MANAGER PULMONARY - Language Goal: Command Following - Patient [...] and safety in ADLs. Outcome: Progressing Problem: MANAGER PULMONARY - Language Goal: Command Following - Patient [...] oropharyngeal swallow function to most appropriately guide MANAGER PULMONARY plan of care Outcome: Not Met Problem: [...] pharyngeal swallow function to most appropriately guide MANAGER PULMONARY plan of care Outcome: Progressing Problem: Enteral Nutrition Goal: Feeding Tolerance Outcome: Progressing Problem: MANAGER PULMONARY - Language Goal: Command Following - Patient [...] oropharyngeal swallow function to most appropriately guide MANAGER PULMONARY plan of care Outcome: Ongoing Problem: Dysphagia Goal: FEES - Patient will participate in Fiberoptic Endoscopic Evaluation of Swallowing (FEES) study to objectively assess pharyngeal swallow function to most appropriately guide MANAGER PULMONARY plan of care Outcome: Not Met Problem: [...] for the [facility] at [facility]. Given the nature of Behzad Hay's stroke, I was not able to complete a full visit. I have left my business card and a BEFAST magnet within the room for any loved ones who may visit. ROBBY Al, RN Stroke Nurse Navigator [place] [address] Office [email or web address] On admission to [facility] ED, [...] MD Neurology, PGY3 [facility] upon initial assessment pts NIH noted to [...] pharyngeal swallow function to most appropriately guide MANAGER PULMONARY plan of care Outcome: Ongoing Problem: MANAGER PULMONARY - Language Goal: Command Following - Patient [...] Outcome: Progressing documented in this encounter [facility] 11-16-2024 History of Present illness Narrative Care Management Discharge Note Selected Continued Care - Admitted Since 10/18/2024 Destination Coordination complete. Service Provider Services Address Phone Fax Patient Preferred [facility] [address] [place] [address] [phone] -- Transport Request Mode of Transfer: [facility] Name of Discharge Transport Company: [employer] [facility] ETA: 11/16/2024 @ 3:20pm Patient medically stable for discharge per physician/medical team. Patient/General Utility Worker remain in agreement with the discharge plan. PAM Fleming, [place] Laborer Hoisting Available by Secure Chat Acute Occupational Therapy Treatment Prior Gross Functional Mobility: needs assist Current AM-PAC score(s): CURRENT AM-PAC Activity Raw Score: 8 Based on the above AM-PAC score(s), and OT clinical judgment, discharge destination recommendation is: [facility] Facility Barriers to discharge home: Patient needs [...] Edema: Mobility Assessment/Intervention: Supine to Sit Mobility [place] Level: Supine->Sit: dependent (less than 25% patient effort) Physical Assist: Supine->Sit: 2 person assist Bed Features/Set-up: Supine->Sit: Head of bed elevated Skilled Rationale: Verbal cues Skilled Intervention/Details: Supine->Sit: limited initiation from pt despite max cues Transfer Assessment/Intervention: Sit to Stand Transfer [place] Level: Sit->Stand: maximum assist (25% patient effort) [...] initiation from pt this date Bed-Chair Transfer [place] Level: Bed<->Chair: dependent (less than 25% patient effort) Physical Assist: Bed<->Chair: 2 person assist Assistive Device: Bed<->Chair: gait belt, arm in arm Skilled Rationale: Verbal cues, Tactile cues Skilled Intervention/Details: Bed<->Chair: squat pivot transfer to left with bilat arm in arm, tactile cues at hips, limited initiation from pt and unable to step to chair this date Functional Mobility: Outcome Score(s): CURRENT [facility] Daily Activity Inpatient Short Form Putting on/Taking Off Lower Body Clothin - Total Assistance Bathin - A Lot of Assistance Toiletin - Total Assistance Putting on/Taking Off Upper Body Clothin - Total Assistance Groomin - A Lot of Assistance Eatin - Total Assistance CURRENT [facility] Activity Raw Score: 8 CURRENT -[facility] Activity Functional Limitation/Modifier: 85.69% Currently Impaired in [...] System for discharge. Teodora Alcantar Care Management [employer] Professor Acute Physical Therapy Treatment Prior Gross Functional Mobility: needs assist Current AM-PAC score(s): CURRENT AM-PAC Mobility Raw Score: 10 Based on the above AM-PAC score(s) and PT clinical judgment, patient is a good candidate for discharge to [facility] Barriers to discharge home: Patient needs [...] upright Mobility Assessment/Intervention: Supine to Sit Mobility [place] Level: Supine->Sit: dependent (less than 25% patient effort) Physical Assist: Supine->Sit: 2 person assist Bed Features/Set-up: Supine->Sit: Head of bed elevated Skilled Rationale: Positioning, Sequencing, Verbal cues, Cues for increased safety, Technique of activity Skilled Intervention/Details: Supine->Sit: x1 to right, total assist at trunk and BLE to come to upright, no initiation noted despite cues Sit to Supine Mobility [place] Level: Sit->Supine: not tested Skilled Intervention/Details: Sit->Supine: pt in recliner with needs in reach no additional complaints Transfer Assessment/Intervention: Sit to Stand Transfer [place] Level: Sit->Stand: maximum assist (25% patient effort) Physical Assist: Sit->Stand: 2 person assist Assistive Device: Sit->Stand: arm in arm, gait belt Skilled Rationale: Positioning, Sequencing, Verbal cues, Cues for increased safety, Technique of activity, Full extension to upright positioning/posture Skilled Intervention/Details: Sit->Stand: x2 from EOB, pt requires patellar block, ischail assist to initiate and complete transfer Stand to Sit Transfer [place] Level: Stand->Sit: moderate assist (50% patient effort) Physical Assist: Stand->Sit: 2 person assist Assistive Device: Stand->Sit: gait belt, arm in arm Skilled Rationale: Positioning, Sequencing, Verbal cues, Cues for increased safety, Upright gaze/neck extension Skilled Intervention/Details: Stand->Sit: x1 to EOB x1 to recliner, cues for safety, controlled descent Bed-Chair Transfer [place] Level: Bed<->Chair: dependent (less than 25% patient effort) Physical Assist: Bed<->Chair: 2 person assist Assistive Device: Bed<->Chair: gait belt, arm in arm Skilled Rationale: Positioning, Sequencing, Verbal cues, Cues for increased safety, Technique of activity, Controlled descent for sitting Skilled Intervention/Details: Bed<->Chair: squat pivot x1 to left, pt unable to initiate side steps to recliner. Gait/Functional Mobility Assessment/Intervention: Gait Assessment [place] Level: Gait: unable to assess Stairs Assessment/Intervention: Stairs Assessment [place] Level: Stair Negotiation: not tested Outcome Score(s): CURRENT [facility] Basic Mobility Inpatient Short Form Turning [...] with a railin - Total Assistance CURRENT [facility] Mobility Raw Score: 10 CURRENT [facility] Mobility Functional Limitation: 76.75% Impaired in [...] BLS Name of Discharge Transport Company: (P) [facility] ETA: (P) 11/16/2024 @ 3:20pm Pick-up from [facility]10E 1086/A Destination [facility] [address] [place] [address] Teodora Alcantar Care Management [employer] Professor Placement Plan Expected Discharge Date: TBD Referred Level of Care: SNF Barriers: pre-cert; out-of-town transportation Current Referrals and Status 1. [facility] - accepted/reserved SW contacted SNF [...] scheduled for tomorrow (11/16) @ 3:20pm via [facility]. SW updated med team and SNF. Bedside nurse to update pt and pt's daughter who is currently at bedside. PAM Starks, LUIS ANTONIO-S Medical Social Work Please note that I am a float SW and may not be covering the same unit each day. Please reach out to the floor/unit SW for additional needs/concerns. Main CM/SW Office (Friday-Friday, 8:00am-4:30pm): [phone] For any other coverage needs, please consult Sarkisa under Care Management. Acute Physical Therapy Treatment Prior Gross Functional Mobility: needs assist Current AM-PAC score(s): CURRENT AM-PAC Mobility Raw Score: 7 Based on the above AM-PAC score(s) and PT clinical judgment, patient is a good candidate for discharge to [facility] Barriers to discharge home: Patient needs [...] assist Mobility Assessment/Intervention: Supine to Sit Mobility [place] Level: Supine->Sit: maximum assist (25% patient effort) Physical Assist: Supine->Sit: 2 person assist Bed Features/Set-up: Supine->Sit: Head of bed elevated Skilled Rationale: Verbal cues, Sequencing, Technique of activity Sit to Supine Mobility [place] Level: Sit->Supine: moderate assist (50% patient effort) Physical Assist: Sit->Supine: 2 person assist Bed Features/Set-up: Sit->Supine: Head of bed elevated Skilled Rationale: Verbal cues, Sequencing, Technique of activity Transfer Assessment/Intervention: Sit to Stand Transfer [place] Level: Sit->Stand: moderate assist (50% patient effort) Physical Assist: Sit->Stand: 2 person assist Assistive Device: Sit->Stand: gait belt, arm in arm Skilled Rationale: Verbal cues, Facilitate anterior shift Skilled Intervention/Details: Sit->Stand: x 2 from the EOB Stand to Sit Transfer [place] Level: Stand->Sit: moderate assist (50% patient effort) [...] with a railin - Total Assistance CURRENT [facility] Mobility Raw Score: 7 CURRENT [facility] Mobility Functional Limitation: 92.36% Impaired in [...] OT clinical judgment, discharge destination recommendation is: [facility] Barriers to discharge home: Patient needs [...] and Edema: Mobility Assessment/Intervention: Scooting Bridging Mobility [place] Level: Scooting/Bridging: dependent (less than 25% patient effort) Physical Assist: Scooting/Bridgin person assist Bed Features/Set-up: Scooting/Bridging: Flat Skilled Rationale: Verbal cues Skilled Intervention/Details: Scooting/Bridging: boost in bed Supine to Sit Mobility [place] Level: Supine->Sit: maximum assist (25% patient effort) Physical Assist: Supine->Sit: 2 person assist Bed Features/Set-up: Supine->Sit: Head of bed elevated Skilled Rationale: Verbal cues Skilled Intervention/Details: Supine->Sit: cues for initiation and sequencing, tactile cues to guide left hand to opposite rail, increased time Sit to Supine Mobility [place] Level: Sit->Supine: moderate assist (50% patient effort) Physical Assist: Sit->Supine: 2 person assist Bed Features/Set-up: Sit->Supine: Head of bed elevated Skilled Rationale: Verbal cues Skilled Intervention/Details: Sit->Supine: cues for pacing and initiation Transfer Assessment/Intervention: Sit to Stand Transfer [place] Level: Sit->Stand: moderate assist (50% patient effort) [...] step with bilat feet Outcome Score(s): CURRENT [facility] Daily Activity Inpatient Short Form Putting on/Taking Off Lower Body Clothin - Total Assistance Bathin - A Lot of Assistance Toiletin - Total Assistance Putting on/Taking Off Upper Body Clothin - Total Assistance Groomin - A Lot of Assistance Eatin - Total Assistance CURRENT [facility] Activity Raw Score: 8 CURRENT [facility] Activity Functional Limitation/Modifier: 85.69% Currently Impaired [...] on the below outcome measures/assessment score(s), and MANAGER PULMONARY clinical judgment, discharge destination recommendation is: [facility] Barriers to discharge home: Need for 1:1 assist to ensure safety with all PO intake Supporting factors for discharge setting: Impaired speech and language skills limiting ability to communicate basic wants/needs, Impaired cognitive skills limiting independence Acute MANAGER PULMONARY Outcomes Tracking Communicate basic wants and needs?: [...] ice chips with RN post oral care. MANAGER PULMONARY to continue to follow to address communication, motor speech, and dysphagia. Subjective information: Patient alert, resting in bed upon MANAGER PULMONARY arrival. No family present. Pain: General Pain Documentation (Adult, OB, Peds) Presence of Pain: denies pain/discomfort Presence of Pain Score (Auto-calculated): 0 Precautions: Patient Safety Communication Prior to Visit: Nursing Lines/Tubes/Drains (Rehab Status): PEG Existing Precautions/Restrictions: fall Respiratory Status: O2 Sat (%): [96 %-100 %] 97 % O2 Device: room air Flow (L/min): [2] 2 Oxygen Concentration (%): [28] 28 Acute MANAGER PULMONARY Goals Plan of Care by ULISES Lombardo at 11/15/2024 8:50 AM Version 1 of 1 Problem: MANAGER PULMONARY - Language Goal: Command Following - Patient [...] Benefiting the most from choral production with MANAGER PULMONARY given dysarthria/apraxia Progressed to elaboration of carrier [...] communicating and no family present for education. MANAGER PULMONARY did re-orientate and educate on dysphagia and recommendations. Patient Education/Instruction Learners: Patient Education provided: Role of this discipline Teaching method: Verbal Education/Instruction Learner response: Needs review Learning preferences: Auditory Learning considerations: Speech expression, Speech comprehension Patient Instruction/Education comments: Reviewed MANAGER PULMONARY purpose and POC. Plan for next session: 11/15: fair; dysphagia and language treatment. MANAGER PULMONARY Outcomes: FOIS 1 Speech Language Pathologist: ULISES [...] of session: none altered Needs in reach. MANAGER PULMONARY Evaluation and Treatment Time Speech Therapy - Individual 79813: 8 Swallowing Dysfunction Treatment 77351: 8 Upon discontinuation of Acute Care Speech Therapy Services or patient discharge from the hospital this note represents the current Speech Therapy Discharge Summary Speech Language Pathology Attempt Note 11/14/2024 MANAGER PULMONARY Therapy Completed: (P) Attempted Attempted to see pt for MANAGER PULMONARY intervention, however pt is currently not medically [...] Hemorrhage Note IDENTIFYING INFORMATION Behzad Hay MR# [id number] 11/14/2024 HISTORY OF PRESENT ILLNESS Behzad Hay is a 84 y.o. female with a history of A fib on eliquis (Last dose 10/18 AM), HTN, HLD who presented from [place] with L thalamic ICH. LKW 2100 10/17. [...] for frequent neuro check 10/19: Transfer to [place] service 10/20: drowsy today after receiving Seroquel overnight, repeat CTH stable, increase metoprolol for afib RVR 10/21: improved exam today, MANAGER PULMONARY re-eval pending, lisinopril increased to home dose [...] off sitter, plan to follow up with MANAGER PULMONARY tomorrow for dysphagia 11/08: FEES planned, will [...] discharged to pending medical readiness David Sutton, POURER-DIRECTOR HR COMMUNICATIONS 11/14/2024 11:35 AM VITAL SIGNS Temp: [97.8 [...] interviewed and examined this patient with the AUTOMOBILE MECHANIC HELPER. I reviewed the history and exam detailed [...] Hemorrhage Note IDENTIFYING INFORMATION Behzad Hay MR# [id number] 11/13/2024 HISTORY OF PRESENT ILLNESS Behzad Hay is a 84 y.o. female with a history of A fib on eliquis (Last dose 10/18 AM), HTN, HLD who presented from [place] with L thalamic ICH. LKW 2100 10/17. Pt reportedly awoke at 0600 on 10/18 with some R sided weakness and was found by her home health aide at 0900 slumped against the wall with R sided weakness, R facial droop and dysarthria. NIHSS on arrival to [facility] ED 16 (2, 1 commands, [...] for frequent neuro check 10/19: Transfer to [place] service 10/20: drowsy today after receiving Seroquel overnight, repeat CTH stable, increase metoprolol for afib RVR 10/21: improved exam today, MANAGER PULMONARY re-eval pending, lisinopril increased to home dose [...] off sitter, plan to follow up with MANAGER PULMONARY tomorrow for dysphagia 11/08: FEES planned, will [...] Intracerebral Hemorrhage Score Intracerebral Hemorrhage (ICH) Scale [place] Coma Scale Points: 1-->GCS 5-12 Age>/=80: 1-->yes [...] discharged to pending medical readiness David Sutton, EAN-DIRECTOR HR COMMUNICATIONS 11/13/2024 11:26 AM VITAL SIGNS Temp: [97.4 [...] interviewed and examined this patient with the AUTOMOBILE MECHANIC HELPER. I reviewed the history and exam detailed [...] OT Speech Language Pathology Attempt Note: 11/12/2024 MANAGER PULMONARY Therapy Completed: Attempted Attempted Reason: Patient is unavailable due to test/procedure No charge. Thank you, ULISES Leija Time In: 142 Time Out: 142 Total Visit Time: 0 minutes Total Treatment Time (skilled, billable minutes): 0 minutes Placement Plan Expected Discharge Date: 11/15/2024 Referred Level of Care: 11/15/2024 Barriers: Pending Peg Tube placement today Current Referrals and Status [facility] - Available CM called and spoke with patient's daughter and confirmed SNF choice. Preferred SNF, [facility], declined due to care needs - Daughter chose [facility] - CM reached out to SNF via AIDIN and vm requesting they initiate precert process today. CM pending a response. PAM Fleming, PANTOGRAPH I ENGRAVER Laborer Hoisting Available by Secure Chat Neurovascular Stroke Service Intracerebral Hemorrhage Note IDENTIFYING INFORMATION Behzad Hay MR# [id number] 11/12/2024 HISTORY OF PRESENT ILLNESS Behzad Hay is a 84 y.o. female with a history of A fib on eliquis (Last dose 77 AM), HTN, HLD who presented from [place] with L thalamic ICH. LKW 2100 10/17. [...] for afib RVR 10/21: improved exam today, MANAGER PULMONARY re-eval pending, lisinopril increased to home dose [...] off sitter, plan to follow up with MANAGER PULMONARY tomorrow for dysphagia 11/08: FEES planned, will [...] likely be discharged to pending medical readiness Davdi Sutton APRN-DIRECTOR HR COMMUNICATIONS 11/12/2024 11:03 AM VITAL SIGNS Temp: [97.5 [...] interviewed and examined this patient with the AUTOMOBILE MECHANIC HELPER. I reviewed the history and exam detailed [...] placement, Insurance Pre-certification Current Referrals and Status [facility] - Available [facility] - Available Peg Tube placement planned for Sunday 11/12. CM uploaded current clinical and therapy notes to SNF referral. CM will continue to follow and assist patient through discharge planning process. PAM Fleming, PANTOGRAPH I ENGRAVER Laborer Hoisting Available by Secure Chat Acute Physical Therapy Treatment Prior Gross Functional Mobility: needs assist Current AM-PAC score(s): CURRENT AM-PAC Mobility Raw Score: 6 Based on the above AM-PAC score(s) and PT clinical judgment, patient is a good candidate for discharge to [facility] Barriers to discharge home: Patient needs [...] minues Mobility Assessment/Intervention: Supine to Sit Mobility [place] Level: Supine->Sit: dependent (less than 25% patient effort) Physical Assist: Supine->Sit: 2 person assist Bed Features/Set-up: Supine->Sit: Head of bed elevated, Use of bed rail Skilled Rationale: Positioning, Sequencing, Hand placement, Verbal cues Skilled Intervention/Details: Supine->Sit: pt lethargic this date Sit to Supine Mobility [place] Level: Sit->Supine: dependent (less than 25% patient effort) Physical Assist: Sit->Supine: 2 person assist Bed Features/Set-up: Sit->Supine: Flat Transfer Assessment/Intervention: Gait/Functional Mobility Assessment/Intervention: Stairs Assessment/Intervention: Outcome Score(s): CURRENT [facility] Basic Mobility Inpatient Short Form Turning over in bed: 1 - Total Assistance Moving from lying on back to sittin - Total Assistance Moving to and from bed to chair: 1 - Total Assistance Sitting/standing from chair: 1 - Total Assistance Walk in hospital room: 1 - Total Assistance Climbing 3-5 steps with a railin - Total Assistance CURRENT [facility] Mobility Raw Score: 6 CURRENT [facility] Mobility Functional Limitation: 100.00% Impaired in [...] Hemorrhage Note IDENTIFYING INFORMATION Behzad Hay MR# [id number] 11/11/2024 HISTORY OF PRESENT ILLNESS Behzad Hay is a 84 y.o. female with a history of A fib on eliquis (Last dose 10/18 AM), HTN, HLD who presented from [place] with L thalamic ICH. LKW 2100 10/17. [...] for frequent neuro check 10/19: Transfer to [place] service 10/20: drowsy today after receiving Seroquel overnight, repeat CTH stable, increase metoprolol for afib RVR 10/21: improved exam today, MANAGER PULMONARY re-eval pending, lisinopril increased to home dose [...] off sitter, plan to follow up with MANAGER PULMONARY tomorrow for dysphagia 11/08: FEES planned, will [...] pressure goal: normotension Hemorrhagic Stroke Core Measures -[facility] on admission 16 -Patient has been started [...] discharged to pending medical readiness Ailyn Mullen, POURER-[facility] 11/11/2024 11:25 AM VITAL SIGNS Temp: [...] interviewed and examined this patient with the AUTOMOBILE MECHANIC HELPER. I reviewed the history and exam detailed [...] OT clinical judgment, discharge destination recommendation is: [facility] Barriers to discharge home: Patient needs [...] and Edema: Mobility Assessment/Intervention: Scooting Bridging Mobility [place] Level: Scooting/Bridging: dependent (less than 25% patient effort) Physical Assist: Scooting/Bridgin person assist Bed Features/Set-up: Scooting/Bridging: Flat Skilled Rationale: Verbal cues Skilled Intervention/Details: Scooting/Bridging: boost in bed Supine to Sit Mobility [place] Level: Supine->Sit: dependent (less than 25% patient effort) Physical Assist: Supine->Sit: 2 person assist Bed Features/Set-up: Supine->Sit: Head of bed elevated Skilled Rationale: Verbal cues Skilled Intervention/Details: Supine->Sit: no initiation Sit to Supine Mobility [place] Level: Sit->Supine: dependent (less than 25% patient [...] Summary. Speech Language Pathology Attempt Note 11/10/2024 MANAGER PULMONARY Therapy Completed: (P) Yes Attempted to see [...] Hemorrhage Note IDENTIFYING INFORMATION Behzad Hay MR# [id number] 11/10/2024 HISTORY OF PRESENT ILLNESS Behzad Hay is a 84 y.o. female with a history of A fib on eliquis (Last dose 10/18 AM), HTN, HLD who presented from [place] with L thalamic ICH. LKW 2100 10/17. [...] for frequent neuro check 10/19: Transfer to [place] service 10/20: drowsy today after receiving Seroquel overnight, repeat CTH stable, increase metoprolol for afib RVR 10/21: improved exam today, MANAGER PULMONARY re-eval pending, lisinopril increased to home dose [...] off sitter, plan to follow up with MANAGER PULMONARY tomorrow for dysphagia 11/08: FEES planned, will [...] pressure goal: normotension Hemorrhagic Stroke Core Measures -[facility] on admission 16 -Patient has been started [...] interviewed and examined this patient with the AUTOMOBILE MECHANIC HELPER. I reviewed the history and exam detailed [...] 7/7 AM), HTN, HLD who presents from [place] with L thalamic ICH with hosp course [...] 7 AM), HTN, HLD who presents from [place] with L thalamic ICH with hosp course c/b Afib-RVR. UA concerning for UTI, started on Ceftriaxone. We are re-consulted for PEG tube placement. IMPRESSION PEG Placement. Dysphagia Malnutrition. Need for long term feeding. Assessment/Planning - No obvious contraindication for [...] gm if patient is >80 kg) as "personal driver to the procedure". If pt has PCN or cephalosporin allergy, have ordered Clindamycin (900 mg IVPB) and Gentamycin (5 mg/kg of ABW) as "personal driver to procedure." - If applicable, please ensure [...] Division of Gastroenterology, Hepatology & Nutrition [facility] Epic Chat with questions or Page [phone] For urgent/stat calls or consults 5pm to 7am or all day on the weekend, please page the on-call GI fellow on QGenda. [facility]--> Internal Medicine--> Gastroenterology, Hepatology, & Nutrition--> 1st Call [facility] OR STAT/NEW GI Cons Wknd Day For follow up questions regarding this patient 7am to 5pm, contact the IBD consults fellow or VIDYA on QSunrisea. [facility]--> Internal Medicine--> Gastroenterology, Hepatology, & Nutrition--> IBD [...] is a good candidate for discharge to [facility] Barriers to discharge home: Patient needs [...] break Mobility Assessment/Intervention: Supine to Sit Mobility [place] Level: Supine->Sit: maximum assist (25% patient effort) Bed Features/Set-up: Supine->Sit: Head of bed elevated, Use of bed rail Skilled Rationale: Positioning, Sequencing, Hand placement, Verbal cues Skilled Intervention/Details: Supine->Sit: increased time and step by step cues for sequencing Sit to Supine Mobility [place] Level: Sit->Supine: maximum assist (25% patient effort) Physical Assist: Sit->Supine: 2 person assist Bed Features/Set-up: Sit->Supine: Flat Transfer Assessment/Intervention: Sit to Stand Transfer [place] Level: Sit->Stand: maximum assist (25% patient effort) Physical Assist: Sit->Stand: 2 person assist Assistive Device: Sit->Stand: gait belt, hand held assist Skilled Rationale: Positioning, Sequencing, Verbal cues, Hand placement Skilled Intervention/Details: Sit->Stand: pt educated in sit to stand transfers with max assist of 2, arm and arm assist, cues for full trunk extension Gait/Functional Mobility Assessment/Intervention: Stairs Assessment/Intervention: Outcome Score(s): CURRENT [facility] Basic Mobility Inpatient Short Form Turning [...] with a railin - Total Assistance CURRENT [facility] Mobility Raw Score: 8 CURRENT [facility] Mobility Functional Limitation: 86.62% Impaired in [...] OT clinical judgment, discharge destination recommendation is: [facility] Barriers to discharge home: Patient needs [...] and Edema: Mobility Assessment/Intervention: Scooting Bridging Mobility [place] Level: Scooting/Bridging: dependent (less than 25% patient effort) Physical Assist: Scooting/Bridgin person assist Bed Features/Set-up: Scooting/Bridging: Flat Skilled Rationale: Verbal cues Skilled Intervention/Details: Scooting/Bridging: boost in bed Supine to Sit Mobility [place] Level: Supine->Sit: maximum assist (25% patient effort) Bed Features/Set-up: Supine->Sit: Head of bed elevated Skilled Rationale: Verbal cues, Tactile cues Skilled Intervention/Details: Supine->Sit: step by step cues and initiation cues, increased time Sit to Supine Mobility [place] Level: Sit->Supine: maximum assist (25% patient effort) Physical Assist: Sit->Supine: 2 person assist Bed Features/Set-up: Sit->Supine: Flat Skilled Rationale: Verbal cues Transfer Assessment/Intervention: Sit to Stand Transfer [place] Level: Sit->Stand: maximum assist (25% patient effort) [...] on the below outcome measures/assessment score(s) and MANAGER PULMONARY clinical judgment, discharge destination recommendation is: [facility] Barriers to discharge home: Need for 1:1 assist to ensure safety with all PO intake, Inability to communicate basic wants/needs Supporting factors for discharge setting: Impaired speech and language skills limiting ability to communicate basic wants/needs, Impaired swallow function limiting nutritional status and safety with oral intake Acute MANAGER PULMONARY Outcomes Tracking Communicate basic wants and needs?: [...] room. Pt unable to identify objects on [employer] communication board this date. Ongoing MANAGER PULMONARY services recommended. Subjective information: Pt asleep upon [...] O2 Device: room air (11/09 899) Acute MANAGER PULMONARY Goals Plan of Care by Shantal Mclean, MANAGER PULMONARY at 11/09/2024 9:48 AM Version 1 of 1 Problem: MANAGER PULMONARY - Language Goal: Command Following - Patient [...] communication. Outcome: Ongoing Tx: When presented with [employer] communication board; pt able to identify 0/5 [...] with increased wet vocal quality the date. MANAGER PULMONARY provided thorough oral care and pt readily [...] dysphagia/lang tx Speech Language Pathologist: Shantal Mclean MANAGER PULMONARY Time In: 947 Time Out: 1013 Total Visit Time: 25 minutes Total Treatment Time (skilled, billable minutes): 25 minutes Non-billable assistance during session: n/a Assisted by during session: n/a PPE used during patient interaction: gloves Patient location/status at end of session: bed with head of bed elevated Patient alarms at end of session: none altered Needs in reach. MANAGER PULMONARY Evaluation and Treatment Time Speech Therapy - Individual 54233: 13 Swallowing Dysfunction Treatment 38124: 12 Upon discontinuation of Acute Care Speech [...] the past week. Pt last seen by MANAGER PULMONARY this morning with continued recommendations for NPO. [...] Needs: Weight Used: 52.6 kg (CBW) EEN: 9448-2662 kcal/day (25-30 kcal/kg) EPN: 63-79 g/day (1.2-1.5 g/kg) EFN: 1580 mL/day (30 mL/kg) Malnutrition Statement: Does the patient meet criteria for malnutrition: Unable to assess 2/2 mental status *Based on [employer] Academy and [employer]EN Indicators to Diagnose Malnutrition (AAIM) criteria (2012) Fadumo Stark MS, RD, LD, [facility] Pager #[phone] Neurovascular Stroke Service Intracerebral Hemorrhage Note IDENTIFYING INFORMATION Behzad Hay MR# [id number] 11/09/2024 HISTORY OF PRESENT ILLNESS Behzad Hya is a 84 y.o. female with a history of A fib on eliquis (Last dose 10/18 AM), HTN, HLD who presented from [place] with L thalamic ICH. LKW 2100 10/17. [...] for afib RVR 10/21: improved exam today, MANAGER PULMONARY re-eval pending, lisinopril increased to home dose [...] off sitter, plan to follow up with MANAGER PULMONARY tomorrow for dysphagia 11/08: FEES planned, will [...] pressure goal: normotension Hemorrhagic Stroke Core Measures -KSISS on admission 16 -Patient has been started [...] mL Per NG tube Q4H Reta Galarza APRN-DIRECTOR HR COMMUNICATIONS 11/09/2024 12:55 PM VITAL SIGNS Temp: [98.3 [...] Q4H Cosigned by Lc Salazar MD at 11/09/2024 7:39 PM EDT Associated attestation - Lc Salazar MD - 11/09/2024 7:39 PM EDT Attending Physician Note (GC) I interviewed and examined this patient with the AUTOMOBILE MECHANIC HELPER. I reviewed the history and exam detailed [...] on the below outcome measures/assessment score(s) and MANAGER PULMONARY clinical judgment, discharge destination recommendation is: [facility] Barriers to discharge home: Need for 1:1 assist to ensure safety with all PO intake, Inability to communicate basic wants/needs Supporting factors for discharge setting: Impaired speech and language skills limiting ability to communicate basic wants/needs, Impaired swallow function limiting nutritional status and safety with oral intake Acute MANAGER PULMONARY Outcomes Tracking Communicate basic wants and needs?: [...] Sat (%): 96 % (11/08 804) Acute MANAGER PULMONARY Goals Plan of Care by Shantal Mclean, MANAGER PULMONARY at 11/08/2024 4:23 PM Version 1 of 1 Problem: MANAGER PULMONARY - Language Goal: Command Following - Patient [...] 11/08: good; FEES Speech Language Pathologist: ULISES Loes Time In: 1623 Time Out: 1640 Total Visit Time: 17 minutes Total Treatment Time (skilled, billable minutes): 17 minutes Non-billable assistance during session: n/a Assisted by during session: patient's daughter PPE used during patient interaction: gloves Patient location/status at end of session: bed with head of bed elevated Patient alarms at end of session: none altered Needs in reach. MANAGER PULMONARY Evaluation and Treatment Time Swallowing Dysfunction Treatment 23539: 17 Upon discontinuation of Acute Care Speech Therapy Services or patient discharge from the hospital this note represents the current Speech Therapy Discharge Summary Neurovascular Stroke Service Intracerebral Hemorrhage Note IDENTIFYING INFORMATION Behzad Hay MR# [id number] 11/07/2024 HISTORY OF PRESENT ILLNESS Behzad Hay is a 84 y.o. female with a history of A fib on eliquis (Last dose 10/18 AM), HTN, HLD who presented from [place] with L thalamic ICH. LKW 2100 10/17. [...] for frequent neuro check 10/19: Transfer to [place] service 10/20: drowsy today after receiving Seroquel overnight, repeat CTH stable, increase metoprolol for afib RVR 10/21: improved exam today, MANAGER PULMONARY re-eval pending, lisinopril increased to home dose [...] off sitter, plan to follow up with MANAGER PULMONARY tomorrow for dysphagia PHYSICAL EXAM Gen: alert, [...] Intracerebral Hemorrhage Score Intracerebral Hemorrhage (ICH) Scale [place] Coma Scale Points: 1-->GCS 5-12 Age>/=80: 1-->yes [...] discharged to pending medical readiness Ailyn Mullen, EAN-DIRECTOR HR COMMUNICATIONS 11/07/2024 11:43 AM VITAL SIGNS Temp: [97.8 [...] Hemorrhage Note IDENTIFYING INFORMATION Behzad Hay MR# [id number] 11/06/2024 HISTORY OF PRESENT ILLNESS Behzad Hay is a 84 y.o. female with a history of A fib on eliquis (Last dose 10/18 AM), HTN, HLD who presented from [place] with L thalamic ICH. LKW 2100 10/17. Pt reportedly awoke at 0600 on 10/18 with some R sided weakness and was found by her home health aide at 0900 slumped against the wall with R sided weakness, R facial droop and dysarthria. NIHSS on arrival to [facility] ED 16 (2, 1 commands, 1 [...] for frequent neuro check 10/19: Transfer to [place] service 10/20: drowsy today after receiving Seroquel overnight, repeat CTH stable, increase metoprolol for afib RVR 10/21: improved exam today, MANAGER PULMONARY re-eval pending, lisinopril increased to home dose [...] be discharged to pending medical readiness Ailyn Mullne APRN-NICO 11/06/2024 11:20 AM VITAL SIGNS Temp: [...] - Insurance pre-certification Current Referrals and Status [facility] - Available (pending Peg Tube) [facility] - Under Review [facility] - Under Review 1st choice would be [facility] and 2nd choice [facility] uploaded current clinical for SNFs to follow. PAM Fleming, PANTOGRAPH I ENGRAVER Laborer Hoisting Available by Secure Chat Neurovascular Stroke Service Intracerebral Hemorrhage Note IDENTIFYING INFORMATION Behzad Hay MR# [id number] 11/05/2024 HISTORY OF PRESENT ILLNESS Behzad Hay is a 84 y.o. female with a history of A fib on eliquis (Last dose 10/18 AM), HTN, HLD who presented from [place] with L thalamic ICH. LKW 2100 10/17. [...] for afib RVR 10/21: improved exam today, MANAGER PULMONARY re-eval pending, lisinopril increased to home dose [...] Intracerebral Hemorrhage Score Intracerebral Hemorrhage (ICH) Scale [place] Coma Scale Points: 1-->GCS 5-12 Age>/=80: 1-->yes [...] discharged to pending medical readiness Ailyn Mullen, POURER-DIRECTOR HR COMMUNICATIONS 11/05/2024 3:16 PM VITAL SIGNS Temp: [97.6 [...] Q4H Cosigned by Ousmane Cantu DO at 11/05/2024 5:43 PM EDT [...] placement. Ousmane Cantu D.O. Vascular Neurology [facility] Acute Physical Therapy Treatment Prior Gross Functional Mobility: needs assist Current AM-PAC score(s): CURRENT AM-PAC Mobility Raw Score: 7 Based on the above AM-PAC score(s) and PT clinical judgment, patient is a good candidate for discharge to [facility] Barriers to discharge home: Patient needs [...] extension Mobility Assessment/Intervention: Supine to Sit Mobility [place] Level: Supine->Sit: dependent (less than 25% patient effort) Physical Assist: Supine->Sit: 2 person assist Bed Features/Set-up: Supine->Sit: Head of bed elevated, Use of bed rail Skilled Rationale: Positioning, Sequencing, Hand placement, Verbal cues Sit to Supine Mobility [place] Level: Sit->Supine: dependent (less than 25% patient effort) Physical Assist: Sit->Supine: 2 person assist Transfer Assessment/Intervention: Sit to Stand Transfer [place] Level: Sit->Stand: dependent (less than 25% patient effort) Physical Assist: Sit->Stand: 2 person assist Assistive Device: Sit->Stand: gait belt, hand held assist Skilled Rationale: Positioning, Sequencing, Hand placement, Verbal cues Skilled Intervention/Details: Sit->Stand: pt educated in sit to stand transfer x 2 with dependent assist of 2 and arm and arm assist Gait/Functional Mobility Assessment/Intervention: Stairs Assessment/Intervention: Outcome Score(s): CURRENT [facility] Basic Mobility Inpatient Short Form Turning over in bed: 2 - A Lot of Assistance Moving from lying on back to sittin - Total Assistance Moving to and from bed to chair: 1 - Total Assistance Sitting/standing from chair: 1 - Total Assistance Walk in hospital room: 1 - Total Assistance Climbing 3-5 steps with a railin - Total Assistance CURRENT [facility] Mobility Raw Score: 7 CURRENT [facility] Mobility Functional Limitation: 92.36% Impaired in [...] OT clinical judgment, discharge destination recommendation is: [facility] Barriers to discharge home: Patient needs [...] placement Mobility Assessment/Intervention: Supine to Sit Mobility [place] Level: Supine->Sit: dependent (less than 25% patient effort) Physical Assist: Supine->Sit: 2 person assist Bed Features/Set-up: Supine->Sit: Head of bed elevated Skilled Rationale: Hand placement, Verbal cues, Sequencing, Positioning Transfer Assessment/Intervention: Sit to Stand Transfer [place] Level: Sit->Stand: dependent (less than 25% patient effort) Physical Assist: Sit->Stand: 2 person assist Assistive Device: Sit->Stand: gait belt, hand held assist Skilled Rationale: Verbal cues, Hand placement, Sequencing, Positioning Skilled Intervention/Details: Sit->Stand: X 3 trials this session and limited effort by pt CURRENT [facility] Daily Activity Inpatient Short Form Putting on/Taking Off Lower Body Clothin - Total Assistance Bathin - A Lot of Assistance Toiletin - Total Assistance Putting on/Taking Off Upper Body Clothin - A Lot of Assistance Groomin - A Lot of Assistance Eatin - Total Assistance CURRENT [facility] Activity Raw Score: 9 CURRENT [facility] Activity Functional Limitation/Modifier: 79.59% Currently Impaired [...] Needs review Plan for next session: mayra [facility] OT Goals Plan of Care by Molly [...] of session: bed alarm, RN aware, safety progressive care unit registered nurse present (RN and FLOOR WAXER at bedside) Needs in reach. Time In: 910 Time Out: 933 Total Visit Time: 23 minutes Total Treatment Time (skilled, billable minutes): 23 minutes Upon discontinuation of Acute Care Occupational Therapy Services or patient discharge from the hospital this note represents the current Occupational Therapy Discharge Summary. Neurovascular Stroke Service Intracerebral Hemorrhage Note IDENTIFYING INFORMATION Behzad Hay MR# [id number] 11/04/2024 HISTORY OF PRESENT ILLNESS Behzad Hay is a 84 y.o. female with a history of A fib on eliquis (Last dose 10/18 AM), HTN, HLD who presented from [place] with L thalamic ICH. LKW 2100 10/17. [...] for afib RVR 10/21: improved exam today, MANAGER PULMONARY re-eval pending, lisinopril increased to home dose [...] Intracerebral Hemorrhage Score Intracerebral Hemorrhage (ICH) Scale [place] Coma Scale Points: 1-->GCS 5-12 Age>/=80: 1-->yes [...] pressure goal: normotension Hemorrhagic Stroke Core Measures -KSISS on admission 16 -Patient has been started [...] discharged to pending medical readiness Reta Galarza, EAN-DIRECTOR HR COMMUNICATIONS 11/04/2024 3:59 PM VITAL SIGNS Temp: [97.6 [...] placement. Ousmane Cantu D.O. Vascular Neurology [facility] Acute Care Speech Language Pathology Treatment [...] on the below outcome measures/assessment score(s), and MANAGER PULMONARY clinical judgment, discharge destination recommendation is: [facility] Barriers to discharge home: Inability to communicate basic wants/needs, Need for 1:1 assist to ensure safety with all PO intake Supporting factors for discharge setting: Impaired swallow function limiting nutritional status and safety with oral intake, Impaired speech and language skills limiting ability to communicate basic wants/needs, Impaired cognitive skills limiting independence Acute MANAGER PULMONARY Outcomes Tracking Communicate basic wants and needs?: [...] for naming but named 70% accurate. Ongoing MANAGER PULMONARY services recommended. Subjective information: Patient alert, resting [...] 98 % O2 Device: room air Acute MANAGER PULMONARY Goals Plan of Care by ULISES Lombardo at 11/04/2024 8:10 AM Version 1 of 1 Problem: MANAGER PULMONARY - Language Goal: Command Following - Patient [...] expression, Speech comprehension Patient Instruction/Education comments: Reviewed MANAGER PULMONARY purpose and POC.Discussed ongoing NPO status and need for study in the future Plan for next session: 11/04- good, ongoing speech/language tx. Ongoing bolus trials to dertmine readiness for FEES MANAGER PULMONARY Outcomes: FOIS 1 Speech Language Pathologist: ULISES Lombardo Time In: 809 Time Out: 827 Total Visit Time: 18 minutes Total Treatment Time (skilled, billable minutes): 18 minutes Non-billable assistance during session: n/a Assisted by during session: [facility]CA PPE used during patient interaction: gloves Patient location/status at end of session: bed with head of bed elevated Patient alarms at end of session: mitts, safety progressive care unit registered nurse present Needs in reach. MANAGER PULMONARY Evaluation and Treatment Time Speech Therapy - Individual 80008: 10 Swallowing Dysfunction Treatment 18502: 8 Upon discontinuation of Acute Care Speech Therapy Services or patient discharge from the hospital this note represents the current Speech Therapy Discharge Summary Neurovascular Stroke Service Intracerebral Hemorrhage Note IDENTIFYING INFORMATION Behzad Hay MR# [id number] 11/03/2024 HISTORY OF PRESENT ILLNESS Behzad Hay is a 84 y.o. female with a history of A fib on eliquis (Last dose 10/18 AM), HTN, HLD who presented from [place] with L thalamic ICH. LKW 2100 10/17. [...] for frequent neuro check 10/19: Transfer to [place] service 10/20: drowsy today after receiving Seroquel overnight, repeat CTH stable, increase metoprolol for afib RVR 10/21: improved exam today, MANAGER PULMONARY re-eval pending, lisinopril increased to home dose [...] discharged to pending medical readiness Reta Galarza APRN-DIRECTOR HR COMMUNICATIONS 11/03/2024 9:43 AM VITAL SIGNS Temp: [97.5 [...] placement. Ousmane Cantu D.O. Vascular Neurology [facility] Acute Care Speech Language Pathology Treatment [...] on the below outcome measures/assessment score(s), and MANAGER PULMONARY clinical judgment, discharge destination recommendation is: [facility] Barriers to discharge home: Inability to communicate basic wants/needs Supporting factors for discharge setting: Impaired swallow function limiting nutritional status and safety with oral intake, Impaired speech and language skills limiting ability to communicate basic wants/needs Acute MANAGER PULMONARY Outcomes Tracking Communicate basic wants and needs?: [...] small improvements in naming this date. Ongoing MANAGER PULMONARY services recommended. Subjective information: Patient alert, resting [...] 100 % O2 Device: room air Acute MANAGER PULMONARY Goals Plan of Care by Aida Martinez MANAGER PULMONARY at 11/03/2024 8:13 AM Version 1 of 1 Problem: MANAGER PULMONARY - Language Goal: Command Following - Patient [...] expression, Speech comprehension Patient Instruction/Education comments: Reviewed MANAGER PULMONARY purpose and POC. Plan for next session: 11/03: good, ongoing bolus challenge swallow and speech/language tx MANAGER PULMONARY Outcomes: FOIS 1 Speech Language Pathologist: ULISES Lombardo Time In: 812 Time Out: 828 Total Visit Time: 16 minutes Total Treatment Time (skilled, billable minutes): 16 minutes Non-billable assistance during session: n/a Assisted by during session: SCA PPE used during patient interaction: gloves Patient location/status at end of session: bed with head of bed elevated Patient alarms at end of session: mitts, safety progressive care unit registered nurse present Needs in reach. MANAGER PULMONARY Evaluation and Treatment Time Speech Therapy - Individual 90560: 8 Swallowing Dysfunction Treatment 27132: 8 Upon discontinuation of Acute Care Speech [...] 10/18 AM), HTN, HLD who presented from [place] with L thalamic ICH. LKW 2100 10/17. [...] PEG- has been unable to engage with MANAGER PULMONARY. Answers no to all questions asked (I.e., [...] HGBA1C 5.4 10/18/2024 GI: Last bm: 11/02 ([place] Stool Scale Type 7); # bm past [...] Needs: Weight Used: 52 kg (CBW) EEN: 6854-0618 kcal/day (25-30 kcal/kg) EPN: 62-78 g/day (1.2-1.5 g/kg) EFN: 1560 mL/day (30 mL/kg) or per primary team Malnutrition Statement: Does the patient meet criteria for malnutrition: Unable to assess *Based on [employer] and [employer]EN Indicators to Diagnose Malnutrition (AAIM) criteria (2012) Fadumo Stark MS, RD, LD, [facility] Pager #[phone] Speech Language Pathology Attempt Note 11/02/2024 MANAGER PULMONARY Therapy Completed: (P) Attempted Attempted to see [...] Hemorrhage Note IDENTIFYING INFORMATION Behzad Hay MR# [id number] 11/02/2024 HISTORY OF PRESENT ILLNESS Behzad Hay is a 84 y.o. female with a history of A fib on eliquis (Last dose 10/18 AM), HTN, HLD who presented from [place] with L thalamic ICH. LKW 2100 10/17. [...] for afib RVR 10/21: improved exam today, MANAGER PULMONARY re-eval pending, lisinopril increased to home dose [...] GI, plan for PEG next week, continue MANAGER PULMONARY eval -11/02: GI deferring PEG until agitation [...] discharged to pending medical readiness David Sutton, POURER-DIRECTOR HR COMMUNICATIONS 11/02/2024 7:10 AM VITAL SIGNS Temp: [97.4 [...] plan. Ousmane Cantu D.O. Vascular Neurology [facility] Placement Plan Expected Discharge Date: TBD Referred Level of Care: SNF Barriers: Peg Tube placement, Insurance pre-certification Current Referrals and Status [facility] - Under Review 2. [facility] - Available (pending Peg Tube placement) [facility] - Under Review Pending PEG Tube placement. Continues to have sitter. CM will continue to follow and assist with discharge planning. Addendum:4:03 PM CM met with patient's daughter at bedside and reviewed current SNF list - 1st choice would be [facility] and 2nd choice [facility]. CM did explain that [facility] had offically denied. PAM Fleming, [place] Laborer Hoisting Available by Secure Chat Speech Language Pathology Attempt Note 11/01/2024 MANAGER PULMONARY Therapy Completed: Attempted; pt asleep upon entry and unable to rouse despite max verbal/tactile cues. ULISES Leos Time In: 952 Time Out: 955 Total Visit Time: 3 minutes Total Treatment Time (skilled, billable minutes): 0 minutes Neurovascular Stroke Service Intracerebral Hemorrhage Note IDENTIFYING INFORMATION Behzad Hay MR# [id number] 11/01/2024 HISTORY OF PRESENT ILLNESS Behzad Hay is a 84 y.o. female with a history of A fib on eliquis (Last dose 10/18 AM), HTN, HLD who presented from [place] with L thalamic ICH. LKW 2100 10/17. [...] for frequent neuro check 10/19: Transfer to [place] service 10/20: drowsy today after receiving Seroquel overnight, repeat CTH stable, increase metoprolol for afib RVR 10/21: improved exam today, MANAGER PULMONARY re-eval pending, lisinopril increased to home dose [...] pressure goal: normotension Hemorrhagic Stroke Core Measures -KSISS on admission 16 -Patient has been started [...] GI, plan for PEG next week, continue MANAGER PULMONARY eval Elevated LFTs (POA) - elevated on [...] discharged to pending medical readiness David Sutton APRN-DIRECTOR HR COMMUNICATIONS 11/01/2024 3:08 PM VITAL SIGNS Temp: [97.4 [...] outpatient. Ousmane Cantu D.O. Vascular Neurology [facility] Acute Physical Therapy Treatment Prior Gross Functional Mobility: needs assist Current AM-PAC score(s): CURRENT AM-PAC Mobility Raw Score: 6 Based on the above AM-PAC score(s) and PT clinical judgment, patient is a good candidate for discharge to [facility] Barriers to discharge home: Patient needs [...] knees Mobility Assessment/Intervention: Supine to Sit Mobility [place] Level: Supine->Sit: maximum assist (25% patient effort) Physical Assist: Supine->Sit: 2 person assist Bed Features/Set-up: Supine->Sit: Head of bed elevated Skilled Rationale: Positioning, Hand placement, Verbal cues, Sequencing Skilled Intervention/Details: Supine->Sit: pt assisted with movement of LEs towar EOB Transfer Assessment/Intervention: Sit to Stand Transfer [place] Level: Sit->Stand: dependent (less than 25% patient effort) Physical Assist: Sit->Stand: 2 person assist Assistive Device: Sit->Stand: gait belt, hand held assist Skilled Rationale: Positioning, Sequencing, Hand placement, Verbal cues Skilled Intervention/Details: Sit->Stand: x1 from EOB Bed-Chair Transfer [place] Level: Bed<->Chair: dependent (less than 25% patient effort) Physical Assist: Bed<->Chair: 2 person assist Assistive Device: Bed<->Chair: gait belt, hand held assist Skilled Rationale: Positioning, Hand placement, Verbal cues, Sequencing Skilled Intervention/Details: Bed<->Chair: modified stand pivot transfers Gait/Functional Mobility Assessment/Intervention: Stairs Assessment/Intervention: Outcome Score(s): CURRENT [facility] Basic Mobility Inpatient Short Form Turning over in bed: 1 - Total Assistance Moving from lying on back to sittin - Total Assistance Moving to and from bed to chair: 1 - Total Assistance Sitting/standing from chair: 1 - Total Assistance Walk in hospital room: 1 - Total Assistance Climbing 3-5 steps with a railin - Total Assistance CURRENT [facility] Mobility Raw Score: 6 CURRENT [facility] Mobility Functional Limitation: 100.00% Impaired in [...] Readiness, Insurance Pre-cert Current Referrals and Status [facility] SNF - Viewed [facility] - Under Review [facility] - Under Review CM uploaded currently clinical to [facility] - patient currently has no accepting SNFs due to pending Nutritional Plan. GI Consulted. CM extended timer until Friday. PAM Fleming, PANTOGRAPH I ENGRAVER Laborer Hoisting Available by Secure Chat Acute Care Speech [...] on the below outcome measures/assessment score(s), and MANAGER PULMONARY clinical judgment, discharge destination recommendation is: [facility] Facility Barriers to discharge home: Inability to communicate basic wants/needs, Need for 1:1 assist to ensure safety with all PO intake Supporting factors for discharge setting: Impaired speech and language skills limiting ability to communicate basic wants/needs, Impaired swallow function limiting nutritional status and safety with oral intake Acute MANAGER PULMONARY Outcomes Tracking Communicate basic wants and needs?: [...] and to reduce risk of disuse atrophy. MANAGER PULMONARY will continue to follow for dysphagia intervention. 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 The above continues to impact ability to communicate basic wants/needs. Continues to benefit from phonemic cueing, modeling, and redirections for improved accuracy. Lethargy/fatigue appearing to impact participation in structured yes/no questions this visit. MANAGER PULMONARY will continue to follow to address the [...] Precautions/Restrictions: fall Respiratory Status: Room Air Acute MANAGER PULMONARY Goals Plan of Care by ULISES Leija at 10/29/2024 11:16 AM Version 1 of 1 Problem: MANAGER PULMONARY - Language Goal: Command Following - Patient [...] ongoing bolus challenge swallows and speech/language tx MANAGER PULMONARY Outcomes: FOIS 1 Speech Language Pathologist: ULISES [...] end of session: none altered, mitts, safety progressive care unit registered nurse present Needs in reach. MANAGER PULMONARY Evaluation and Treatment Time Speech Therapy - Individual 14947: 9 Swallowing Dysfunction Treatment 60144: 10 Upon discontinuation of Acute Care Speech Therapy Services or patient discharge from the hospital this note represents the current Speech Therapy Discharge Summary Acute Occupational Therapy Treatment Prior Gross Functional Mobility: needs assist Current AM-PAC score(s): CURRENT AM-PAC Activity Raw Score: 9 Based on the above AM-PAC score(s), and OT clinical judgment, discharge destination recommendation is: [facility] Barriers to discharge home: Patient needs [...] placement Mobility Assessment/Intervention: Supine to Sit Mobility [place] Level: Supine->Sit: maximum assist (25% patient effort) Physical Assist: Supine->Sit: 2 person assist Bed Features/Set-up: Supine->Sit: Head of bed elevated Skilled Rationale: Verbal cues, Tactile cues, Hand placement Skilled Intervention/Details: Supine->Sit: able to initaite transfer Transfer Assessment/Intervention: Sit to Stand Transfer [place] Level: Sit->Stand: dependent (less than 25% patient effort) Physical Assist: Sit->Stand: 2 person assist Assistive Device: Sit->Stand: gait belt Skilled Rationale: Verbal cues, Tactile cues, Visual cues Skilled Intervention/Details: Sit->Stand: max cues for upright posture and hand placement Bed-Chair Transfer [place] Level: Bed<->Chair: dependent (less than 25% patient effort) Physical Assist: Bed<->Chair: 2 person assist Assistive Device: Bed<->Chair: gait belt Skilled Rationale: Verbal cues, Tactile cues, Visual cues, Hand placement CURRENT [facility] Daily Activity Inpatient Short Form Putting on/Taking Off Lower Body Clothin - Total Assistance Bathin - A Lot of Assistance Toiletin - Total Assistance Putting on/Taking Off Upper Body Clothin - A Lot of Assistance Groomin - A Lot of Assistance Eatin - Total Assistance CURRENT [facility] Activity Raw Score: 9 CURRENT [facility] Activity Functional Limitation/Modifier: 79.59% Currently Impaired [...] is a good candidate for discharge to [facility] Barriers to discharge home: Patient needs [...] knees Mobility Assessment/Intervention: Supine to Sit Mobility [place] Level: Supine->Sit: maximum assist (25% patient effort) Physical Assist: Supine->Sit: 2 person assist Bed Features/Set-up: Supine->Sit: Head of bed elevated, Use of bed rail Skilled Rationale: Positioning, Sequencing, Hand placement, Verbal cues Skilled Intervention/Details: Supine->Sit: minimal initiation Transfer Assessment/Intervention: Sit to Stand Transfer [place] Level: Sit->Stand: maximum assist (25% patient effort) Physical Assist: Sit->Stand: 2 person assist Assistive Device: Sit->Stand: gait belt, hand held assist Skilled Rationale: Positioning, Sequencing, Hand placement, Tactile cues Skilled Intervention/Details: Sit->Stand: Pt educated in sit to stand transfers x 3 with blocking of bilateral feet and knees Bed-Chair Transfer [place] Level: Bed<->Chair: dependent (less than 25% patient [...] with a railin - Total Assistance CURRENT AM-[facility] Mobility Raw Score: 6 CURRENT [facility] Mobility Functional Limitation: 100.00% Impaired in [...] Readiness, Insurance pre-certification Current Referrals and Status [facility] - Pending CM uploaded current clinical to [facility] for SNF to review. Patient failed MBS yesterday, being treated for UTI. MANAGER PULMONARY continuing to follow. CM continuing to follow. PAM Fleming, PANTOGRAPH I ENGRAVER Laborer Hoisting Available by Secure Chat Acute Occupational Therapy Treatment Prior Gross Functional Mobility: needs assist Current AM-PAC score(s): CURRENT AM-PAC Activity Raw Score: 9 Based on the above AM-PAC score(s), and OT clinical judgment, discharge destination recommendation is: [facility] Barriers to discharge home: Patient needs [...] cues Mobility Assessment/Intervention: Supine to Sit Mobility [place] Level: Supine->Sit: maximum assist (25% patient effort) Physical Assist: Supine->Sit: 2 person assist Bed Features/Set-up: Supine->Sit: Head of bed elevated Skilled Rationale: Hand placement, Verbal cues, Tactile cues Skilled Intervention/Details: Supine->Sit: No intiation noted Transfer Assessment/Intervention: Sit to Stand Transfer [place] Level: Sit->Stand: maximum assist (25% patient effort) Physical Assist: Sit->Stand: 2 person assist Assistive Device: Sit->Stand: gait belt Skilled Rationale: Tactile cues, Verbal cues, Hand placement Skilled Intervention/Details: Sit->Stand: arm in arm assist x 3 trials Bed-Chair Transfer [place] Level: Bed<->Chair: maximum assist (25% patient effort) Physical Assist: Bed<->Chair: 2 person assist Assistive Device: Bed<->Chair: gait belt Skilled Rationale: Verbal cues, Tactile cues, Hand placement, Sequencing, Positioning CURRENT -[facility] Daily Activity Inpatient Short Form Putting on/Taking Off Lower Body Clothin - Total Assistance Bathin - A Lot of Assistance Toiletin - Total Assistance Putting on/Taking Off Upper Body Clothin - A Lot of Assistance Groomin - A Lot of Assistance Eatin - Total Assistance CURRENT AM[facility] Activity Raw Score: 9 CURRENT [facility] Activity Functional Limitation/Modifier: 79.59% Currently Impaired in [...] at end of session: chair alarm, safety progressive care unit registered nurse present Needs in reach. Time In: 926 [...] since per JUN. Pt last assessed by MANAGER PULMONARY yesterday with continued recommendations for NPO. 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 Suspect CBW more accurate than admit wt [...] HGBA1C 5.4 10/18/2024 GI: Last bm: 10/24 ([place] Stool Scale Type 6) Enteral access: post-pyloric small bore feeding tube Skin: Dani Score: 15 Edema- none documented Active Wounds: Wound 10/24/24 0800 Perineum (2) Cognitive Status: confused, Ox1, garbled/slurred speech Estimated Nutrition Needs: Weight Used: 53 kg (CBW) EEN: 0276-7052 kcal/day (25-30 kcal/kg) EPN: 64-80 g/day (1.2-1.5 g/kg) EFN: 1590 mL/day (30 mL/kg) or per primary team Malnutrition Statement: Does the patient meet criteria for malnutrition: Unable to assess *Based on [employer] and [employer] Indicators to Diagnose Malnutrition (AAIM) criteria (2012) Fadumo Stark, , RD, LD, CSNC Pager #[phone] Acute Care Speech Language Pathology Treatment Diet [...] on the below outcome measures/assessment score(s), and MANAGER PULMONARY clinical judgment, discharge destination recommendation is: [facility] Barriers to discharge home: Need for 1:1 assist to ensure safety with all PO intake, Inability to communicate basic wants/needs Supporting factors for discharge setting: Impaired swallow function limiting nutritional status and safety with oral intake, Impaired speech and language skills limiting ability to communicate basic wants/needs Acute MANAGER PULMONARY Outcomes Tracking Communicate basic wants and needs?: [...] sensate aspiration response per most recent FEES. MANAGER PULMONARY explained dysphagia impacting swallow safety and efficiency [...] redirection cues to complete tasks. Ongoing skilled MANAGER PULMONARY services indicated to address deficits and maximize [...] 1452) Flow (L/min): 1 (10/25 1012) Acute MANAGER PULMONARY Goals Plan of Care by Yola Barboza, MANAGER PULMONARY at 10/25/2024 3:17 PM Version 1 of 1 Problem: MANAGER PULMONARY - Language Goal: Command Following - Patient [...] Initially 2/7 accurate for naming tasks. With MANAGER PULMONARY cues for semantic and phonemic cue. Improved [...] none altered (sitter present) Needs in reach. MANAGER PULMONARY Evaluation and Treatment Time Speech Therapy - Individual 51964: 15 Swallowing Dysfunction Treatment 42988: 15 Upon discontinuation of Acute Care Speech Therapy Services or patient discharge from the hospital this note represents the current Speech Therapy Discharge Summary Placement Plan Expected Discharge Date: TBD Referred Level of Care: SNF Barriers: Medical Readiness Current Referrals and Status [facility] - Pending CM uploaded current PT OT and clinical notes to [facility] for SNF to review. Patient with a sitter and video sitter over the weekend. Patient is pending a Dysphagia plan. CM will continue to follow and assist with discharge planning. PAM Fleming, [place] Laborer Hoisting Available by Secure Chat Acute Occupational Therapy Treatment Prior Gross Functional Mobility: needs assist Current AM-PAC score(s): CURRENT AM-PAC Activity Raw Score: 9 Based on the above AM-PAC score(s), and OT clinical judgment, discharge destination recommendation is: [facility] Barriers to discharge home: Patient needs [...] and hand over hand assist for increased mobile ui developer of RUE Mobility Assessment/Intervention: Supine to Sit Mobility [place] Level: Supine->Sit: maximum assist (25% patient effort) Physical Assist: Supine->Sit: 2 person assist Bed Features/Set-up: Supine->Sit: Head of bed elevated Skilled Rationale: Hand placement, Verbal cues, Sequencing, Positioning Skilled Intervention/Details: Supine->Sit: Minimal initaiton Sit to Supine Mobility [place] Level: Sit->Supine: maximum assist (25% patient effort) Physical Assist: Sit->Supine: 2 person assist Bed Features/Set-up: Sit->Supine: Head of bed elevated Skilled Rationale: Hand placement, Tactile cues, Verbal cues Skilled Intervention/Details: Sit->Supine: Cues for initation Transfer Assessment/Intervention: Sit to Stand Transfer [place] Level: Sit->Stand: maximum assist (25% patient effort) Physical Assist: Sit->Stand: 2 person assist Assistive Device: Sit->Stand: (X 1 trial with arm in arm assist and X 2 trials with larry steady) Skilled Rationale: Verbal cues, Hand placement, Sequencing, Positioning Skilled Intervention/Details: Sit->Stand: X 3 trials throughout. Knee blocking to RLE this session and assist to anterior weight shifting CURRENT [facility] Daily Activity Inpatient Short Form Putting on/Taking Off Lower Body Clothin - Total Assistance Bathin - A Lot of Assistance Toiletin - Total Assistance Putting on/Taking Off Upper Body Clothin - A Lot of Assistance Groomin - A Lot of Assistance Eatin - Total Assistance CURRENT [facility] Activity Raw Score: 9 CURRENT [facility] Activity Functional Limitation/Modifier: 79.59% Currently Impaired [...] at end of session: bed alarm, safety progressive care unit registered nurse present Needs in reach. Time In: 1012 [...] is a good candidate for discharge to [facility] Barriers to discharge home: Patient needs [...] provided to assist. Mobility Assessment/Intervention: Rolling/Turning Mobility [place] Level: Rolling/Turning: maximum assist (25% patient effort) Bed Features/Set-up: Rolling/Turning: Flat Skilled Rationale: Hand placement, Verbal cues Skilled Intervention/Details: Rolling/Turning: Rolled left and right for positioning Scooting Bridging Mobility [place] Level: Scooting/Bridging: dependent (less than 25% patient effort) Physical Assist: Scooting/Bridgin person assist Bed Features/Set-up: Scooting/Bridging: Flat Skilled Rationale: Hand placement, Verbal cues Skilled Intervention/Details: Scooting/Bridging: Boost to HOB Supine to Sit Mobility [place] Level: Supine->Sit: maximum assist (25% patient effort) [...] trunk to upright. Sit to Supine Mobility [place] Level: Sit->Supine: maximum assist (25% patient effort) Physical Assist: Sit->Supine: 2 person assist Bed Features/Set-up: Sit->Supine: Head of bed elevated, Use of bed rail Skilled Rationale: Positioning, Sequencing, Hand placement, Verbal cues, Technique of activity Skilled Intervention/Details: Sit->Supine: Pt able to initiate but needed assist at the trunk and bilat LE. Transfer Assessment/Intervention: Sit to Stand Transfer [place] Level: Sit->Stand: maximum assist (25% patient effort) Physical Assist: Sit->Stand: 2 person assist Assistive Device: Sit->Stand: arm in arm Skilled Rationale: Positioning, Hand placement, Verbal cues, Facilitate anterior shift, Full extension to upright positioning/posture, Finding/maintaining midline positioning, Upright gaze/neck extension, Technique of activity Skilled Intervention/Details: Sit->Stand: x1 from EOB, x2 from Larry Stedy Stand to Sit Transfer [place] Level: Stand->Sit: moderate assist (50% patient effort) Physical Assist: Stand->Sit: 2 person assist Assistive Device: Stand->Sit: arm in arm Skilled Rationale: Positioning, Hand placement, Verbal cues, Controlled descent for sitting Skilled Intervention/Details: Stand->Sit: x2 to Larry Stedy, x1 to EOB Bed-Chair Transfer [place] Level: Bed<->Chair: not tested Gait/Functional Mobility Assessment/Intervention: Gait Assessment [place] Level: Gait: unable to assess Stairs Assessment/Intervention: Stairs Assessment [place] Level: Stair Negotiation: unable to assess Outcome Score(s): CURRENT [facility] Basic Mobility Inpatient Short Form Turning over in bed: 1 - Total Assistance Moving from lying on back to sittin - Total Assistance Moving to and from bed to chair: 1 - Total Assistance Sitting/standing from chair: 1 - Total Assistance Walk in hospital room: 1 - Total Assistance Climbing 3-5 steps with a railin - Total Assistance CURRENT [facility] Mobility Raw Score: 6 CURRENT [facility] Mobility Functional Limitation: 100.00% Impaired in [...] (LKN 2100 prior to bed). At the [facility] CT brain showed a left thalamic intracerebral hemorrhage and remote left inferior division MCA infarct. OSH CT angiogram head/neck negative. She was given K Centra. She was transferred to [facility] ER and on arrival NIHSS was 16. LDL 73, HgbA1c 5.4. The patient was admitted to the NCCU. MRI brain diffusion weighted images shows acute embolic infarcts in right FLOOR WAXER and L cerebellar. FLAIR shows old left [...] Hemorrhage Note IDENTIFYING INFORMATION Behzad Hay MR# [id number] 10/24/2024 HISTORY OF PRESENT ILLNESS Behzad Hay is a 84 y.o. female with a history of afib on eliquis (LD 10/18 AM), HTN, HLD who presents from [facility] with L thalamic ICH. LKW 2100 10/17. [...] for afib RVR 10/21: improved exam today, MANAGER PULMONARY re-eval pending, lisinopril increased to home dose [...] Intracerebral Hemorrhage Score Intracerebral Hemorrhage (ICH) Scale [place] Coma Scale Points: 1-->GCS 5-12 Age>/=80: 1-->yes [...] pressure goal: normotension Hemorrhagic Stroke Core Measures -KSISS on admission 16 -Patient has been started [...] appropriate - 10/21 improved neuro exam, requested MANAGER PULMONARY re-eval - 10/22 improved neuro exam however failed FEES, re-eval Friday Elevated LFTs (POA) - elevated on admit, repeat LFTs downtrended Fall Risk: Assessed for patient fall risk and discussed safety measures during rounding. Disposition: Behzad Hay will likely be discharged to pending medical readiness David Sutton, POURER-DIRECTOR HR COMMUNICATIONS 10/24/2024 12:49 PM VITAL SIGNS Temp: [98.7 [...] Hemorrhage Note IDENTIFYING INFORMATION Behzad Hay MR# [id number] 10/23/2024 HISTORY OF PRESENT ILLNESS Behzad Hay is a 84 y.o. female with a history of afib on eliquis (LD 7/7 AM), HTN, HLD who presents from [facility] with L thalamic ICH. LKW 2100 10/17. Pt reportedly awoke at 0600 on 10/18 with some R sided weakness and was found by her home health aide at 0900 slumped against the wall with R sided weakness, R facial droop and dysarthria. NIHSS [facility] (2, 1 commands, 1 [...] for frequent neuro check 10/19: Transfer to [place] service 10/20: drowsy today after receiving Seroquel overnight, repeat CTH stable, increase metoprolol for afib RVR 10/21: improved exam today, MANAGER PULMONARY re-eval pending, lisinopril increased to home dose [...] appropriate - 10/21 improved neuro exam, requested MANAGER PULMONARY re-eval - 10/22 improved neuro exam however [...] (LKN 2100 prior to bed). At the [facility] CT brain showed a left thalamic intracerebral hemorrhage and remote left inferior division MCA infarct. OSH CT angiogram head/neck negative. She was given K Centra. She was transferred to [facility] ER and on arrival NIHSS was 16. LDL 73, HgbA1c 5.4. The patient was admitted to the NCCU. MRI brain diffusion weighted images shows acute embolic infarcts in right FLOOR WAXER and L cerebellar. FLAIR shows old left [...] (LKN 2100 prior to bed). At the [facility] CT brain showed a left thalamic intracerebral hemorrhage and remote left inferior division MCA infarct. OSH CT angiogram head/neck negative. She was given K Centra. She was transferred to [facility] ER and on arrival NIHSS was 16. LDL 73, HgbA1c 5.4. The patient was admitted to the NCCU. MRI brain diffusion weighted images shows acute embolic infarcts in right FLOOR WAXER and L cerebellar. FLAIR shows old left [...] plan, Insurance Pre-certification Current Referrals and Status [facility] - Pending CM uploaded referral to [facility] for Facility to review. At time of initial assessment, daughter preference location for post hospital discharge rehabilitation was at [facility]. CM will continue to follow and assist patient and family through discharge planning process. PAM Fleming, PANTOGRAPH I ENGRAVER Laborer Hoisting Available by Secure Chat Acute Care Speech [...] on the below outcome measures/assessment score(s), and MANAGER PULMONARY clinical judgment, discharge destination recommendation is: [facility] Barriers to discharge home: Need for 1:1 assist to ensure safety with all PO intake Supporting factors for discharge setting: Impaired swallow function limiting nutritional status and safety with oral intake Acute MANAGER PULMONARY Outcomes Tracking Communicate basic wants and needs?: [...] Sat (%): 98 % (10/22 701) Acute MANAGER PULMONARY Goals Plan of Care by ULISES Chow at 10/22/2024 8:22 AM Version 1 of 1 Problem: Dysphagia Goal: MBS - Patient will participate in Modified Barium Swallow (MBS) Study to objectively assess oropharyngeal swallow function to most appropriately guide MANAGER PULMONARY plan of care Outcome: Not Met See [...] of session: wrist restraints Needs in reach. MANAGER PULMONARY Evaluation and Treatment Time Swallowing Dysfunction Treatment 86418: 12 Upon discontinuation of Acute Care Speech Therapy Services or patient discharge from the hospital this note represents the current Speech Therapy Discharge Summary Neurovascular Stroke Service Intracerebral Hemorrhage Note IDENTIFYING INFORMATION Behzad Hay MR# [id number] 10/22/2024 HISTORY OF PRESENT ILLNESS Behzad Hay is a 84 y.o. female with a history of afib on eliquis (LD 7 AM), HTN, HLD who presents from [facility] with L thalamic ICH. LKW 2100 10/17. [...] for frequent neuro check 10/19: Transfer to [place] service 10/20: drowsy today after receiving Seroquel overnight, repeat CTH stable, increase metoprolol for afib RVR 10/21: improved exam today, MANAGER PULMONARY re-eval pending, lisinopril increased to home dose [...] Intracerebral Hemorrhage Score Intracerebral Hemorrhage (ICH) Scale [place] Coma Scale Points: 1-->GCS 5-12 Age>/=80: 1-->yes [...] pressure goal: normotension Hemorrhagic Stroke Core Measures -KSISS on admission 16 -Patient has been started [...] appropriate - 10/21 improved neuro exam, requested MANAGER PULMONARY re-eval - 10/22 improved neuro exam however failed FEES, re-eval Friday Elevated LFTs (POA) - elevated on admit, repeat LFTs downtrended Fall Risk: Assessed for patient fall risk and discussed safety measures during rounding. Disposition: Behzad Hay will likely be discharged to pending medical readiness Jesus Yang, EAN-DIRECTOR HR COMMUNICATIONS 10/22/2024 11:22 AM VITAL SIGNS Temp: [97.7 [...] (LKN 2100 prior to bed). At the [facility] CT brain showed a left thalamic intracerebral hemorrhage and remote left inferior division MCA infarct. OSH CT angiogram head/neck negative. She was given K Centra. She was transferred to [facility] ER and on arrival NIHSS was 16. LDL 73, HgbA1c 5.4. The patient was admitted to the NCCU. MRI brain diffusion weighted images shows acute embolic infarcts in right FLOOR WAXER and L cerebellar. FLAIR shows old left [...] OT clinical judgment, discharge destination recommendation is: [facility] Barriers to discharge home: Patient needs [...] support to increase distal control for task, [id number] assist, Visual scanning and environmental awareness, Physical [...] LOB. Mobility Assessment/Intervention: Supine to Sit Mobility [place] Level: Supine->Sit: minimum assist (75% patient effort) Bed Features/Set-up: Supine->Sit: Head of bed elevated Skilled Rationale: Verbal cues, Positioning, Technique of activity, Initiation and execution of task, Cues for increased safety, Visual cues Skilled Intervention/Details: Supine->Sit: Multimodal cues for initiation; increased time to complete. Sit to Supine Mobility [place] Level: Sit->Supine: moderate assist (50% patient effort) Bed Features/Set-up: Sit->Supine: Head of bed elevated Skilled Rationale: Verbal cues, Tactile cues, Positioning, Technique of activity, Initiation and execution of task, Cues for increased safety Skilled Intervention/Details: Sit->Supine: Multimodal cues. Transfer Assessment/Intervention: Sit to Stand Transfer [place] Level: Sit->Stand: moderate assist (50% patient effort) [...] positioning, hand placement and initiation. Bed-Chair Transfer [place] Level: Bed<->Chair: maximum assist (25% patient effort) [...] is a good candidate for discharge to [facility] Barriers to discharge home: Patient needs [...] posture. Mobility Assessment/Intervention: Supine to Sit Mobility [place] Level: Supine->Sit: minimum assist (75% patient effort) Bed Features/Set-up: Supine->Sit: Head of bed elevated Skilled Rationale: Verbal cues, Tactile cues, Hand placement, Full extension to upright positioning/posture, Technique of activity Skilled Intervention/Details: Supine->Sit: verbal/tactile cues for instruction on transfer technique and min A For trunk management Sit to Supine Mobility [place] Level: Sit->Supine: moderate assist (50% patient effort) Bed Features/Set-up: Sit->Supine: Head of bed elevated Skilled Rationale: Verbal cues, Tactile cues, Hand placement, Technique of activity Skilled Intervention/Details: Sit->Supine: verbal/tactile cues for instruction on transfer technique and mod A For trunk management Transfer Assessment/Intervention: Sit to Stand Transfer [place] Level: Sit->Stand: moderate assist (50% patient effort) Physical Assist: Sit->Stand: 2 person assist Assistive Device: Sit->Stand: gait belt Skilled Rationale: Verbal cues, Tactile cues, Hand placement, Technique of activity Skilled Intervention/Details: Sit->Stand: x2 trials with verbal/tactile cues for instruction on transfer technique and hand placement. Bed-Chair Transfer [place] Level: Bed<->Chair: maximum assist (25% patient effort) [...] with a railin - Total Assistance CURRENT [facility] Mobility Raw Score: 10 CURRENT [facility] Mobility Functional Limitation: 76.75% Impaired in [...] on the below outcome measures/assessment score(s), and MANAGER PULMONARY clinical judgment, discharge destination recommendation is: Pending instumental swallow assessment Barriers to discharge home: Inability to communicate basic wants/needs Supporting factors for discharge setting: Impaired speech and language skills limiting ability to communicate basic wants/needs, Impaired swallow function limiting nutritional status and safety with oral intake Acute MANAGER PULMONARY Outcomes Tracking Communicate basic wants and needs?: [...] comfort and reduce risk for disuse atrophy. MANAGER PULMONARY to follow. Clinical Speech/Language/Cognitive Impression: Patient also [...] with speech output impacting intelligibility at times. MANAGER PULMONARY will continue to follow for speech/language tx [...] Precautions/Restrictions: fall Respiratory Status: Room Air Acute MANAGER PULMONARY Goals Plan of Care by ULISES Leija at 10/21/2024 10:20 AM Version 1 of 1 Problem: MANAGER PULMONARY - Language Goal: Command Following - Patient [...] oropharyngeal swallow function to most appropriately guide MANAGER PULMONARY plan of care Outcome: Ongoing Problem: Dysphagia Goal: FEES - Patient will participate in Fiberoptic Endoscopic Evaluation of Swallowing (FEES) study to objectively assess pharyngeal swallow function to most appropriately guide MANAGER PULMONARY plan of care Outcome: Not Met Tx: FEES deferred day prior given increase in NIH and drowsiness with patient deemed not appropriate for participation. Improved participation in trials at bedside this visit. Patient however now requiring wrist restraints with intermittent attempts to remove DHT. Given minimal stim to outer nose this visit patient continued to slightly turn head away from MANAGER PULMONARY. Does not appear FEES would be appropriate at this time, rather MBS may be more appropriate to instrumentally assess swallow safety/efficiency. Goal note met given the above. Goal: Dysphagia Goal: Ongoing Assessment - Patient will participate in ongoing assessment by accepting various PO consistency trials with appropriate participation/oral acceptance and no significant respiratory complications to determine readiness for instrumental Outcome: Met Tx: MANAGER PULMONARY assisted with oral care utilizing suction toothbrush. [...] for next session: 10/21: good - MBS MANAGER PULMONARY Outcomes: FOIS 1 Speech Language Pathologist: ULISES [...] wrist restraints, none altered Needs in reach. MANAGER PULMONARY Evaluation and Treatment Time Speech Therapy - Individual 72361: 16 Swallowing Dysfunction Treatment 69010: 15 Upon discontinuation of Acute Care Speech Therapy Services or patient discharge from the hospital this note represents the current Speech Therapy Discharge Summary Neurovascular Stroke Service Intracerebral Hemorrhage Note IDENTIFYING INFORMATION Behzad Hay MR# [id number] 10/21/2024 HISTORY OF PRESENT ILLNESS Behzad Hay is a 84 y.o. female with a history of afib on eliquis (LD 7/7 AM), HTN, HLD who presents from [place] with L thalamic ICH. LKW 2100 10/17. [...] for frequent neuro check 10/19: Transfer to NM service 10/20: drowsy today after receiving Seroquel overnight, repeat CTH stable, increase metoprolol for afib RVR 10/21: improved exam today, MANAGER PULMONARY re-eval pending, lisinopril increased to home dose [...] appropriate - 10/21 improved neuro exam, requested MANAGER PULMONARY re-eval Elevated LFTs (POA) - elevated on admit, repeat LFTs downtrended Fall Risk: Assessed for patient fall risk and discussed safety measures during rounding. Disposition: Behzad Hay will likely be discharged to pending medical readiness Jesus Yang APRN-DIRECTOR HR COMMUNICATIONS 10/21/2024 11:54 AM VITAL SIGNS Temp: [97.5 [...] (LKN 2100 prior to bed). At the [facility] CT brain showed a left thalamic intracerebral hemorrhage and remote left inferior division MCA infarct. OSH CT angiogram head/neck negative. She was given K Centra. She was [facility] ER and on arrival NIHSS was 16. LDL 73, HgbA1c 5.4. The patient was admitted to the NCCU. MRI brain diffusion weighted images shows acute right FLOOR WAXER and L cerebellar infarct. FLAIR shows old [...] MD Speech Language Pathology Attempt Note 10/20/2024 MANAGER PULMONARY Therapy Completed: Attempted Attempted Reason: Patient is [...] however falls back asleep quickly. Given this, MANAGER PULMONARY to defer bedside assessment. Will plan to complete current FEES orders. MANAGER PULMONARY to follow and assess readiness for instrumental [...] and has Home PT and SN through [facility] and has street worker. Patient was recently at [facility]. Daughter would like her to return, CM explained patient is pending Therapy evaluations and recommendations, patient also need a short term nutritional plan. CM will follow and assist with discharge planning. Initial Discharge Planning Expected Discharge Disposition: Halfway Facility Transportation Available for Discharge: Ambulance Anticipated DME: unknown at this time Anticipated Services at Discharge: Physical Therapy, Occupational Therapy, Outpatient follow up, Halfway, Speech Therapy Patient Assessment Completed: Initial Legal Next of Kin Does the patient have a Guardian?: No Spouse: No Adult Child(yenifer), List All Adult Children: Yes Name and Contact information: Aditi Carvalho [phone] Would you like to add additional adult children?: Yes Name and Contact information: Art Hay [phone] Reviewed and Updated in Demographics? : Yes [...] [facility] [address] [place] [address] [address] [facility] [address] Living Environment and Support System Is the patient from a facility or long-term?: No Living Environment: House Patient Caregiving Responsibilities: Self Patient-identified caregiver/support network: (Patient unable to respond) Who does the patient identify as a teachable caregiver(s)?: Child(yenifer) - Independent Services Does the patient use a home health or hospice agency?: Yes - home health Agency Name and Contact : [facility] Current Home Services: Nursing, PT Would you like to add additional home health or hospice agencies?: Yes Agency Name and Contact: [facility] street worker Current with dialysis?: No Does the patient [...] at home? : Yes PAM Fleming, [place] Laborer Hoisting Available by Secure Chat Neurovascular Stroke Service Intracerebral Hemorrhage Note IDENTIFYING INFORMATION Behzad Hay MR# [id number] 10/20/2024 HISTORY OF PRESENT ILLNESS Behzad Hay is a 84 y.o. female with a history of afib on eliquis (LD 7 AM), HTN, HLD who presents from [place] with L thalamic ICH. LKW 2100 10/17. Pt reportedly awoke at 0600 on 10/18 with some R sided weakness and was found by her home health aide at 0900 slumped against the wall with R sided weakness, R facial droop and dysarthria. NIHSS on arrival to [facility] ED 16 (2, 1 commands, 1 L gaze pref, 1 L facial droop, 2 R arm, 2 L leg, 3 R leg, 2 aphasia, 2 dysarthria). CTH at OSH with L thalamic IPH. CTA at OSH with no acute abnormalities. [facility] with redemonstration of known L thalamic ICH and remote L MCA territory infarct. BP on arrival 148/76. INTERVAL HISTORY 10/18: Admitted to [facility]CCU for frequent neuro check 10/19: Transfer to NM service 10/20: drowsy today after receiving Seroquel [...] (C) Slice Thickness (cm) : 0.5 c [facility] 11-15-2024 Hospital Discharge instructions Reta Galarza POURER-DIRECTOR HR COMMUNICATIONS - 11/15/2024 3:10 PM EDT Please take [...] you at all times. Stroke Education: visit [email or web address] What are the most common symptoms of [...] all ordered medications [x] Avoid non-prescription or fijd-sbv-gsdihfv medication not cleared by your physician [x] [...] may call the neurovascular doctors office at [phone], if you have questions Mon-Fri between 8:30 am and 4:30 pm. - For off hours or the weekend you may call the office or the hospital kettle operator at and ask for the stroke resident personal driver to be paged. - If you have any other questions or needs, please call Adrian Platt RN, Stroke Nurse Navigator at [phone] Mon-Fri between 7:00am and 3:00pm. - Additional assistance may be found by reaching out to our Case Management Office at [phone]. *In the event of an Emergency: If you have a physical or psychiatric emergency call 481 or go to your local emergency department. You should also call your outpatient provider's emergency number. Other reference numbers: [facility] Intake Office at 647-850-0018; [facility] at 532-715-4656; or Suicide Prevention Hotline at 322-366-1307. *Helpful phone numbers: Free Crisis Hotline: 6-891-863-VQAO ( ) Suicide Hotline: 544.414.8894 Seniors Suicide Hotline: 395.524.8475 [facility] Youth: 940.319.3722 Mental Health of [place]: 358.199.9613 (free counseling) [facility] Access Hotline: 509-910-ZJFE (710-611-2903) 24-hour crisis text hotline: Text the word "4hope" to 525-938 for crisis support. Texting this number is [...] may qualify for Medicaid/public assistance: The [facility] Department of Job and Family Services can now process [place] (TANF), food (SNAP) and Medicaid Applications over the phone. Please call [phone] ([phone]) and apply over the phone or apply online at www.benefits.[place].gov. Friday-Friday 8am-12pm noon. Medication Assistance Programs [employer] members can buy 100+ common prescriptions for FREE, $3 or $6. Annual membership is $36 for individuals and $72 for families (up to 6 people, including pets). Sign up online or enroll at your nearest pharmacy! [employer], web site can provide a significant number of coupons for medications at a much lower vyas. [place] Department of Aging The Department of Aging administers programs and services to meet the needs of older [place]. Services and resources offered per county may include transportation, housekeeping, meals and nutrition, personal care, case management, safety monitoring, home medical equipment, legal services, financial compliance examiner, health and wellness, education, caregiver support, respite care, etc. Call to be connected to the area agency on aging serving your community or visit aging.[place].gov/find-services. Request a consultation with a community resource expert at ltssi.age.[place].gov/ [facility] Stroke Support [facility] Stroke Support Group is for stroke survivors, friends, and family members. Meets on the Friday of each month from 6:30pm-7:30pm at [facility] ([address]; [place] [address]). Contact Reema Horne, at [phone] or [email or web address]. If you are outside of the [place] area, contact The [place] Stroke [employer] at www.stroke.org or 3-993-2-STROKE or for support groups in your area. You may also refer to the Your Care after a Stroke education booklet at go.[email or web address] for additional resources. REID Canales - 11/15/2024 3:08 PM EDT Know your medicines Make sure you know why you are taking each medicine. Make a master list of all your medicines. Write down the medicine names and doctors' names. Include doses and side effects too. And write down why you take each medicine. Include all prescription and keky-ahz-vnkrtaq medicines, vitamins, and supplements. Keep this list [...] plan your refills so that you can chicken picker all your medicines at the same time. [...] or chills documented in this encounter [facility] 11-11-2024 Telephone encounter Note Fax received and placed on provider desk Winsome Butler MA November 11, 2024 9:20 AM [facility] 11-11-2024 Miscellaneous Notes Fax received and placed on provider desk Winsome Butler MA November 11, 2024 9:20 AM Crystal Stroke Nurse Navigator with [facility] called and reports Pt's daughter wanted her PCP to refer Pt to Neurovascular Ambulatory. She reports they like them to start 4-6 weeks after discharge, and she hasn't been discharged yet. She is going to fax over their Neurovascular Ambulator [facility] in the [place] to fax # [phone]. Molly Adame RN documented in this encounter [facility] 11-10-2024 Telephone encounter Note Crystal Stroke Nurse Navigator with [facility] called and reports Pt's daughter wanted her PCP to refer Pt to Neurovascular Ambulatory. She reports they like them to start 4-6 weeks after discharge, and she hasn't been discharged yet. She is going to fax over their Neurovascular Ambulator [facility] in the [place] to fax # [phone]. Molly Adame RN [facility] 11-09-2024 Procedure note Associated Ord er(s): FLEXIBLE [...] 3 times a week Discharge destination recommendation: Halfway Facility Barriers to discharge home: Need for [...] Review Onset of Illness/Injury or Surgery Date (MANAGER PULMONARY): 10/18/24 Communication Status: Aphasic Hearing Acuity: Not impaired Behavioral Observations: cooperative, pleasant Respiratory Status O2 Device: room air O2 Sat (%): 97 % Resp Rate: 16 Acute MANAGER PULMONARY Outcomes Tracking Communicate basic wants and needs?: no Demo insight/appreciation of deficits?: unable to determine Complete basic problem solving?: unable to determine History of Present Illness: per chart, Behzad Hay is a 84 y.o. female who was admitted on 10/18/2024 per chart: "history of afib on eliquis (LD 10/18 AM), HTN, HLD who presents from [place] with L thalamic ICH. LKW 2100 10/17. [...] MCA territory infarct. BP on arrival 148/76. MANAGER PULMONARY History: Previous Clinical Swallow Eval: Yes Previous [...] time as well as maximum cues from MANAGER PULMONARY (verbal, empty spoon, liquid wash) to swallow [...] disuse atrophy. Patient would benefit from ongoing MANAGER PULMONARY services for dysphagia management, would consider bolus trials at the bedside to ensure oral clearance. MANAGER PULMONARY to follow. FEES 10/22/2024: Behzad Hay was [...] order for ice chips with nursing. Ongoing MANAGER PULMONARY services for addressing bolus challenge trials, possible [...] Procedure Performed & Read by: Shantal Mclean, MANAGER PULMONARY Scope Serial #: [id number] Feeder Name: Clint, Med V Patient was [...] (NZSS) for Pneumonia. Dysphagia. 2018 May;33(1):115-122. doi: 10.1007/[id number]-b. Epub 2016Dec 04. PMID: 41287136. Stark Secretion Scale (KEITH) The Stark Secretion [...] in dysphagic patients. Eur Arch Otorhinolaryngol. 2017 Rafa;274(6):3590-9445. doi: 10.1007/[id number]-j. Ep2016Jun 23. PMID: 38141529. Physiologic Assessment Velopharyngeal Closure: (incomplete) Base of [...] Present - unable to manage reflux events [place] Pharyngeal Residue Severity Rating Scale: Consistency: Ice, [...] Residue: Trace: 1-5% trace coating of mucosa (aSmina Santos, Lesli Zapata, & Rafiq Inman (2015). The ray pharyngeal residue severity rating scale: an anatomically defined and image-based tool. Dysphagia, 30, 521-52.) Penetration/Aspiration Scale: Ice: 5 - Material enters [...] means if within pt/family goals of care. MANAGER PULMONARY to continue to follow for therapeutic swallowing exercises and dynamic assessment of timing for repeat instrumental swallow assessment Rehab potential: good, to achieve stated therapy goals Plan for next session: 11/09: fair; dysphagia/lang tx Acute MANAGER PULMONARY Goals Plan of Care by ULISES Leos [...] of rehabilitation discipline Patient Instruction/Education comments: Reviewed MANAGER PULMONARY purpose and POC.Discussed ongoing NPO status and [...] 5 times a week Discharge destination recommendation: Halfway Facility Barriers to discharge home: Need for [...] (%): 99 % Resp Rate: 20 Acute MANAGER PULMONARY Outcomes Tracking Communicate basic wants and needs?: no Demo insight/appreciation of deficits?: unable to determine Complete basic problem solving?: unable to determine History of Present Illness: Behzad Hay is a 84 y.o. female who was admitted on 10/18/2024 per chart "with a history of afib on eliquis (LD 10/18 AM), HTN, HLD who presents from [place] with L thalamic ICH. LKW 2100 10/17. Pt reportedly awoke at 0600 on 10/18 with some R sided weakness and was found by her home health aide at 0900 slumped against the wall with R sided weakness, R facial droop and dysarthria. NIHSS on arrival to [facility] ED 16 (2, 1 commands, [...] for frequent neuro check 10/19: Transfer to NM service 10/20: drowsy today after receiving Seroquel overnight, repeat CTH stable, increase metoprolol for afib RVR 10/21: improved exam today, MANAGER PULMONARY re-eval pending, lisinopril increased to home dose [...] left MCA territory infarct." Prior Medical History: MANAGER PULMONARY History: Previous Clinical Swallow Eval: Yes Previous [...] order for ice chips with nursing. Ongoing MANAGER PULMONARY services for addressing bolus challenge trials, possible [...] 0 Procedure Details: Patient was positioned : [facility] (60-90 degrees) Exam Was Conducted In: Lateral, 30 frames per second (fps) Barriers to Completion of A-P View: Cognitive/behavioral limitations Barriers for Adequate Visualization During Exam: None Consistencies Assessed: Thin Liquid Barium: 1 tsp, Straw Mildly Thick/[place] Liquid Barium: Straw Pudding Barium: Spoon Oral [...] time as well as maximum cues from MANAGER PULMONARY (verbal, empty spoon, liquid wash) to swallow [...] disuse atrophy. Patient would benefit from ongoing MANAGER PULMONARY services for dysphagia management, would consider bolus trials at the bedside to ensure oral clearance. MANAGER PULMONARY to follow. Rehab potential: good, to achieve stated therapy goals Plan for next session: 10/26- ongoing bolus challenge trials Recommended Rehab Activities: Bolus challenge swallows Acute MANAGER PULMONARY Goals Plan of Care by Sheree Mckenzie, [...] alarms at end of session: none altered MANAGER PULMONARY Evaluation and Treatment Time MBS/Motion Fluoroscopic Swallowing Eval 55157: 20 Upon discontinuation of Acute Care Speech [...] 5 times a week Discharge destination recommendation: Halfway Facility Barriers to discharge home: Need for [...] Review Onset of Illness/Injury or Surgery Date (MANAGER PULMONARY): 10/18/24 (date of admission) Communication Status: Aphasic Hearing Acuity: Not impaired Behavioral Observations: cooperative, pleasant Respiratory Status O2 Device: room air O2 Sat (%): 98 % Resp Rate: 18 Acute MANAGER PULMONARY Outcomes Tracking Communicate basic wants and needs?: (emerging) Demo insight/appreciation of deficits?: no Complete basic problem solving?: (limited assessment, suspect emerging) History of Present Illness: Behzad Hay is a 84 y.o. female who was admitted on 10/18/2024 per chart: "history of afib on eliquis (LD 7/7 AM), HTN, HLD who presents from [place] with L thalamic ICH. LKW 10/17. Pt [...] for frequent neuro check 10/19: Transfer to NM service 10/20: drowsy today after receiving Seroquel overnight, repeat CTH stable, increase metoprolol for afib RVR 10/21: improved exam today, MANAGER PULMONARY re-eval pending, lisinopril increased to home dose 10/22: improved neuro exam however failed FEES, re-eval Friday history of afib on eliquis (LD 77 AM), HTN, HLD who presents from [place] with L thalamic ICH. LKW 10/17. Pt [...] for frequent neuro check 10/19: Transfer to NM service 10/20: drowsy today after receiving Seroquel overnight, repeat CTH stable, increase metoprolol for afib RVR 10/21: improved exam today, MANAGER PULMONARY re-eval pending, lisinopril increased to home dose 10/22: improved neuro exam however failed FEES" Prior Medical History: - MANAGER PULMONARY History: Previous Clinical Swallow Eval: No Previous Swallow Therapy: No Previous MBS: No Previous FEES: No Prior Results: Home Health MANAGER PULMONARY note 10/14/2024: ASSESSMENT: Patient demonstrated a need [...] Procedure Performed & Read by: Yola Selio, MANAGER PULMONARY Scope Serial #: [id number] Feeder Name: Baldemar Jaramillo Patient was positioned [...] (NZSS) for Pneumonia. Dysphagia. 2018 May;33(1):115-122. doi: 10.1007/[id number]-o. Epub 2016Dec 04. PMID: 63274258. Stark Secretion Scale (KEITH) The Stark Secretion [...] in dysphagic patients. Eur Arch Otorhinolaryngol. 2017 Rafa;274(6):9575-7146. doi: 10.1007/[id number]-h. Epub 2016Jun 23. PMID: 64247477. Physiologic Assessment Velopharyngeal Closure: (incomplete) Base of [...] 5-25% up wall to quarter full (Samina Sanots, Lesli Zapata, & Brittney Inman. (2015). The reva pharyngeal residue severity rating scale: an anatomically [...] order for ice chips with nursing. Ongoing MANAGER PULMONARY services for addressing bolus challenge trials, possible [...] if pt able to follow directions) Acute MANAGER PULMONARY Goals Plan of Care by ULISES Chow [...] by: Delicia Danielson PA-C Staff: Name of Foster Parent: REID Lewis Consent Verbal consent not obtained Written consent not obtainedThe procedure was performed in an emergent situation Indications Indications: hemodynamic monitoring [place] Protocol Patient does not state understanding of [...] 10:25 PM EDT documented in this encounter [facility] 11-04-2024 Note HNO ID: [id number] Author: ?, ?, ? Service: ? Author [...] side effects. PCP is aware Ishmael Romo [facility] Pharm[facility] Team [facility] 11-04-2024 History of Present illness Narrative Patient [...] side effects. PCP is aware Ishmael Romo [facility] Team documented in this encounter [facility] 11-04-2024 Note Patient Outreach ( PO) BEHZAD HAY ([id number]) 1940 F Date Time Provider Department 11/04/24 [...] side effects. 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] 07/28/2017 07/06/2018 Collagenous colitis [K52.831] 12/21/2018 IBS (irritable bowel syndrome) [K58.9] 12/21/2018 Hiatal hernia [K44.9] 09/11/2020 Fall from standing [W19.XXXA] 06/05/2021 Rotator cuff tear arthropathy, left [M75.102, M*10/29/2021 Paroxysmal atrial fibrillation (HCC) [I48.0] 04/11/2022 Primary hypertension [I10] 12/30/2022 Acute pain of right shoulder [M25.511] 04/16/2023 Severe pain of left shoulder [M25.512] 04/16/2023 Cervicalgia [M54.2] 04/16/2023 Encounter Status:Closed by ISHMAEL ROMO on 11/04/24 [facility] 11-01-2024 Consult note Formatting of th is [...] to the 56 cm christiane using the [employer] electromagnetic guidance machine. Tube secured with Nasal [...] enteral nutrition regimen, contact unit RD per [facility] dietitian on-call schedule. Brenna LUI, LD, [facility] Pager #[phone] Associated Order(s): IP CONSULT TO GASTROENTEROLOGY N [...] 7 AM), HTN, HLD who presents from [place] with L thalamic ICH with hosp course c/b Afib-RVR. UA concerning for UTI, started on Ceftriaxone. We are consulted for PEG tube placement. Pt has been seen by MANAGER PULMONARY. First seen in on 10/21. She failed [...] 7/7 AM), HTN, HLD who presents from [place] with L thalamic ICH with hosp course c/b Afib-RVR. UA concerning for UTI, started on Ceftriaxone. We are consulted for PEG tube placement. IMPRESSION PEG Placement. Dysphagia Malnutrition. Need for long term feeding. Assessment/Planning No obvious contraindication for PEG [...] she can also continue to work with MANAGER PULMONARY as she improves clinically for her multiple [...] & Nutrition Department of Internal Medicine [facility] [place]ager x [phone] or Epic Chat with questions For urgent/stat calls or consults 5pm to 7am or all day on the weekend, please page the on-call GI fellow on Dental Kidz. [facility]--> Internal Medicine--> Gastroenterology, Hepatology, & Nutrition--> 1st Call [facility] OR STAT/NEW GI Cons Wknd For follow up questions regarding this patient 7am to 5pm, contact the IBD consults fellow or VIDYA on Dental Kidz. [facility]--> Internal Medicine--> Gastroenterology, Hepatology, & Nutrition--> IBD [...] 7/7 AM), HTN, HLD who presents from [place] with L thalamic ICH with hosp course c/b Afib-RVR. UA concerning for UTI, started on Ceftriaxone. We are consulted for PEG tube placement. We recommend bowel regimen optimization, and will aim to schedule her for PEG early next week, will need consent from LNOK. We will continue to follow for more precise timing. She is not receiving a procedure today. Za Rudolph MD Computer Help Desk Representative - Clinical Division of Gastroenterology, Hepatology & [...] to the 63 cm christiane using the [employer] electromagnetic guidance machine. Tube secured with Nasal bridle. FRANSISCO Mckinley RD assisted with the procedure. Patient tolerated the procedure well. KUB released. Guidewire bagged, labeled, and taped to patient white board in room Will defer to MD to read x-ray and provide bedside RN with an OK to use when appropriate. Ousmane Knowles MS, RD LD [facility] Pager# [phone] small-bore feeding tube consult and tube management. NOTE: Availability Mon-Fri 8am-4pm (last consult taken at 3pm) only. Tube Team phone: . For questions pertaining to patient's enteral nutrition regimen, [facility]. Stroke Attending Addendum (Late entry for 10/19/24): I have interviewed and examined patient. I have reviewed Ailyn Mullen CNP's note and agree with the following highlights, additions, and addendums: The patient is a 84 y.o.female with a history of Atrial fibrillation on eliquis, hypertension, hyperlipidemia who on 10/18/24 6a awoke with right hemiparesis (LKN 2100 prior to bed). At the [facility] CT brain showed a left thalamic intracerebral hemorrhage and remote left inferior division MCA infarct. OSH CT angiogram head/neck negative. She was given K Centra. She was transferred to [facility] ER and on arrival NIHSS was 16. LDL 73, HgbA1c 5.4. The patient was admitted to the [facility]. MRI brain diffusion weighted images shows acute right FLOOR WAXER and L cerebellar infarct. FLAIR shows old [...] scan. Appreciate NV recs. Kristin Pressley MD Computer Help Desk Representative of Neurological Surgery [id number] documented in this encounter [facility] 10-20-2024 Telephone encounter Note Chu Cordova. Your home health patient was admitted to [facility] for CVA as of 10/18/24. All home health services have been placed on HOLD. Thank you. Mack Brito RN [facility] Work Phone: 10-20-2024 Miscellaneous Notes Chu Cordova. Your home health patient was admitted to [facility] for CVA as of 10/18/24. All home health services have been placed on HOLD. Thank you. Mack Brito RN [facility] documented in this encounter [facility] 10-20-2024 Miscellaneous Notes Patient had a CVA 10/18 and life flighted to [facility] where she has been admitted. documented in this encounter [facility] 10-20-2024 Patient's home Note Patient had a CVA 10/18 and life flighted to [facility] where she has been admitted. [facility] Work Phone: 10-19-2024 History and physical note [...] 7/ AM), HTN, HLD who presents from [facility] with L thalamic ICH. LKW 2100 10/17. [...] Resource Strain: Low Risk (09/27/2024) Received from [facility] Overall Financial Resource Strain (CARDIA) Difficulty of Paying Living Expenses: Not very hard Food Insecurity: No Food Insecurity (09/27/2024) Received from [facility] Hunger Vital Sign Worried About Running Out of Food in the Last Year: Never true Ran Out of Food in the Last Year: Never true Transportation Needs: No Transportation Needs (09/27/2024) Received from [facility] PRAPARE - Transportation Lack of Transportation (Medical): No Lack of Transportation (Non-Medical): No Physical Activity: Insufficiently Active (09/27/2024) Received from [facility] Exercise Vital Sign Days of Exercise per Week: 7 days Minutes of Exercise per Session: 10 min Stress: No Stress Concern Present (09/27/2024) Received from [facility] [employer] - Occupational Stress Questionnaire Feeling of Stress : Not at all Social Connections: Moderately Integrated (09/27/2024) Received from [facility] Social Connection and Isolation Panel [NHANES] Frequency of Communication with Friends and Family: More than three times a week Frequency of Social Gatherings with Friends and Family: More than three times a week Attends Religion Services: More than 4 times per year Active Member of Clubs or Organizations: Yes Attends Club or Organization Meetings: 1 to 4 times per year Marital Status: Personal Safety: Not on file Housing Stability: Low Risk (08/13/2023) Received from [facility] Housing Stability Vital Sign Unable to Pay [...] (10/19 1999) - Goal SpO2 >92% - [id number], encourage pulmonary toileting - On room air; [...] 6.7 - DIET NPO WITHOUT meds - [place] Swallow Screening Result: failed=NPO - Place DHT; [...] Last updated: 10/18 [x] Get lines out Mallie: inserted 10/18, (indication:hemodynamic montioring) Tapia: inserted 10/18, [...] care unit providing critical care services (CPT 67117) to Behzad Hay today independent of procedures [...] the assigned neurocritical care provider (resident, fellow, AUTOMOBILE MECHANIC HELPER, or PA) or page/call the corresponding number below NCC1 (Beds 7441-1678): [place] # [phone], pager #[phone] NCC2 (Beds 2575-9369, 12 Lc, and overflow): Salv[place] #: [phone], pager #[phone] Cosigned by Zoya Sher MD at 10/19/2024 5:13 PM EDT NEUROCRITICAL CARE HISTORY AND PHYSICAL HOSPITAL VISIT DEMOGRAPHICS Patient: Behzad Hay Code status: Full Code Admission date: 10/18/2024 1:37 PM Hospital days: LOS: 0 days CHIEF COMPLAINT L [facility] HISTORY OF PRESENT ILLNESS Behzad Hay is a 84 y.o. female with a past history of afib on eliquis (LD 7 AM), HTN, HLD who presents from [facility] with L thalamic ICH. LKW 2100 10/17. Pt reportedly awoke at 0600 on 10/18 with some R sided weakness and was found by her home health aide at 0900 slumped against the wall with R sided weakness, R facial droop and dysarthria. NIHSS on arrival to [facility] ED 16 (2, 1 commands, [...] Resource Strain: Low Risk (09/27/2024) Received from [facility] Overall Financial Resource Strain (CARDIA) Difficulty of Paying Living Expenses: Not very hard Food Insecurity: No Food Insecurity (09/27/2024) Received from [facility] Hunger Vital Sign Worried About Running Out of Food in the Last Year: Never true Ran Out of Food in the Last Year: Never true Transportation Needs: No Transportation Needs (09/27/2024) Received from [facility] PRAPARE - Transportation Lack of Transportation (Medical): No Lack of Transportation (Non-Medical): No Physical Activity: Insufficiently Active (09/27/2024) Received from [facility] Exercise Vital Sign Days of Exercise per Week: 7 days Minutes of Exercise per Session: 10 min Stress: No Stress Concern Present (09/27/2024) Received from [facility] [employer] - Occupational Stress Questionnaire Feeling of Stress : Not at all Social Connections: Moderately Integrated (09/27/2024) Received from [facility] Social Connection and Isolation Panel [NHANES] Frequency of Communication with Friends and Family: More than three times a week Frequency of Social Gatherings with Friends and Family: More than three times a week Attends Religion Services: More than 4 times per year Active Member of Clubs or Organizations: Yes Attends Club or Organization Meetings: 1 to 4 times per year Marital Status: Personal Safety: Not on file Housing Stability: Low Risk (08/13/2023) Received from [facility] Housing Stability Vital Sign Unable to Pay [...] (10/18 1800) - Goal SpO2 >92% - [id number], encourage pulmonary toileting - On room air; [...] 6.4 - DIET NPO WITHOUT meds - [place] Swallow Screening Result: failed=NPO - Place DHT; [...] Last updated: 10/18 [x] Get lines out Mallie: inserted 10/18, (indication:hemodynamic montioring) Tapia: inserted 10/18, [...] care unit providing critical care services (CPT 56033) to Behzad Hay today independent of procedures [...] the assigned neurocritical care provider (resident, fellow, AUTOMOBILE MECHANIC HELPER, or PA) or page/call the corresponding number below NCC1 (Beds 6458-6461): [place] # [phone], pager #[phone] NCC2 (Beds 2187-5559, 12 Lc, and overflow): Salvatore #: [phone], pager #[phone] Cosigned by Zoya Sher MD at 10/19/2024 5:13 PM EDT Neurovascular Evaluation Note Evaluation Date: 10/18/2024 Unit: [id number]/E034 Consultation was requested by Dr. Curt Diallo MD Patient status: Emergency Length of stay: 0 days Reason for Consult/Chief Complaint L BG IPH History of Present Illness Behzad Hay is a 84 y.o. female with PMH significant for AFib (on Eliquis), HTN, HLD who presents from [facility] with L BG ICH. LKW 2100 10/17. Pt reportedly awoke at 0600 this AM with some R sided weakness and was found by her home health aide at 0900 slumped against the wall with R sided weakness, R facial droop and dysarthria. NIHSS on arrival to [facility] ED 16 (2 ?, 1 commands, 1 L gaze pref, 1 L facial droop, 2 R arm, 2 L leg, 3 R leg, 2 aphasia, 2 dysarthria). CTH at OSH with L BG IPH. CTA at OSH with no acute abnormalities. Repeat CTH at [facility] with redemonstration of known L BG ICH [...] Known Well: Time: 2099 Source of information: [facility] medical record Review of Systems A complete review of systems was deferred for emergent treatment. Neurovascular-specific History / Information Home antiplatelet/anticoagulation therapy: Anticoagulation: Eliquis. Held s/p L BG IPH Patient Current Risk Factors: Stroke risk factors include hypertension, atrial fibrillation, or hyperlipidemia. Prior stroke history: yes; exact type of CVA unknown. Location: [facility] . Family Hx: unknown Stroke Diagnostic/Treatment Eligibility [...] Gait: Deferred Laboratory Results Diagnostics/Procedures: Labs-CBC Labs-Chem 7([facility]) Labs-Coags Additional Labs No results found for: [...] ED. Continuous telemetry -PT, OT, Speech and social media campaign manager consults Other problems: Complexity. Wound Documentation Any [...] PM EDT documented in this encounter [facility] 10-18-2024 Telephone encounter Note Both Eliquis and Lopressor were refilled in August for year supply to [facility] Ramos. Pt notified via [employer] to check with pharmacy for refill. Mara Hatch MA [facility] 10-18-2024 Miscellaneous Notes Both Eliquis and Lopressor were refilled in August for year supply to [facility]. Pt notified via [employer] to check with pharmacy for refill. Mara Hatch MA documented in this encounter [facility] 10-18-2024 Emergency department Note Bed: E037 Expected [...] Resource Strain: Low Risk (09/27/2024) Received from [facility] Overall Financial Resource Strain (CARDIA) Difficulty of Paying Living Expenses: Not very hard Food Insecurity: No Food Insecurity (09/27/2024) Received from [facility] Hunger Vital Sign Worried About Running Out of Food in the Last Year: Never true Ran Out of Food in the Last Year: Never true Transportation Needs: No Transportation Needs (09/27/2024) Received from [facility] PRAPARE - Transportation Lack of Transportation (Medical): No Lack of Transportation (Non-Medical): No Physical Activity: Insufficiently Active (09/27/2024) Received from [facility] Exercise Vital Sign Days of Exercise per Week: 7 days Minutes of Exercise per Session: 10 min Stress: No Stress Concern Present (09/27/2024) Received from [facility] [employer] - Occupational Stress Questionnaire Feeling of Stress : Not at all Social Connections: Moderately Integrated (09/27/2024) Received from [facility] Social Connection and Isolation Panel [NHANES] Frequency of Communication with Friends and Family: More than three times a week Frequency of Social Gatherings with Friends and Family: More than three times a week Attends Religion Services: More than 4 times per year Active Member of Clubs or Organizations: Yes Attends Club or Organization Meetings: 1 to 4 times per year Marital Status: Personal Safety: Not on file Housing Stability: Low Risk (08/13/2023) Received from [facility] Housing Stability Vital Sign Unable to Pay [...] Range PTT 31.9 24.0 - 34.3 sec [facility] 7 - ED Result Value Ref Range [...] Relative 40.1 % Lymph Relative 26.8 % Cooke Relative 3.6 % Eos Relative 28.6 % Baso Relative 0.9 % Segs & Bands, Absolute 3.26 1.64 - 7.28 K/uL Abs Lymph Manual 2.18 1.16 - 3.51 K/uL Abs Cooke Manual 0.29 0.22 - 0.87 K/uL Abs [...] Negative Negative Ketones Urine Negative Negative Specific [place] Urine 1.024 1.001 - 1.035 Blood Urine [...] symptoms well controlled in the department. A efedon-eo-ehto dictation tool was used in the production of this document and all attempts were made for proper editing but errors may occur. Gary Fraser MD Resident 10/18/24 1549 documented in this encounter [facility] 10-18-2024 Discharge summary [facility] 10-18-2024 Radiology Diagnostic study note [facility] Imaging Services [address] [place] [address] [id number] Chest 1 View MR#: [id number] Acct: [id number] Name: BEHZAD HAY Rep #: [id number] : 1940 F 84 From: Roque Rodriguez DO PCP: Tasha Deutsch, FIELD SEISMOLOGIST Status: REG ER Study:Chest 1 View Date of Exam: 5 Exam# [id number] Ordering Dr: Wellington Woods DO PROCEDURE: CHEST [...] arthritic changes of both shoulders. Reading Location: [id number] CC: FIELD SEISMOLOGIST Tasha Deutsch; Dr. Mihai Woods DO ~ Uniform Maker: Signed [facility] 10-18-2024 Radiology Diagnostic study note [facility] Imaging Services [address] [place] [address] [id number] STROKE CTA Head AND Neck W/Con MR#: [id number] Acct: [id number] Name: BEHZAD HAY Rep #: [id number] : 1940 F 84 From: Felipe José MD PCP: GARFIELD Maldonado Status: REG ER Study:STROKE CTA Head AND Neck W/Con Date of Exam: 10/18/24 Exam# [id number] Ordering Dr: Wellington Woods DO PROCEDURE: STROKE [...] RIGHT Vertebral: Unremarkable. LEFT Vertebral: Unremarkable. Anatomy: [place] anatomy is normal. Aneurysm or [...] abnormality is seen. Stable examination. Reading Location: [place] [address] CC: FIELD SEISMOLOGIST Tasha Deutsch; Dr. Mihai Woods DO ~ Uniform Maker: Signed [facility] 10-18-2024 Radiology Diagnostic study note [facility] Imaging Services [address] [place] [address] [id number] STROKE Brain/Head without Cont MR#: [id number] Acct: [id number] Name: BEHZAD HAY Rep #: [id number] : 1940 F 84 From: Felipe José MD PCP: Tasha Deutsch, FIELD SEISMOLOGIST Status: REG ER Study:STROKE Brain/Head without Cont Date of Exam: 10/18/24 Exam# [id number] Ordering Dr: Wellington Woods DO PROCEDURE: STROKE [...] 11:16 am with readback verification. Reading Location: [place] [address] CC: GARFIELD Deutsch; Dr. Mihai Woods, DO ~ Uniform Maker: Signed [facility] 10-14-2024 Miscellaneous Notes SITUATION: only patient and [...] and speech skills. documented in this encounter [facility] 10-14-2024 Patient's home Note SITUATION: only patient [...] linguistic skills, language skills and speech skills. [facility] Work Phone: 10-14-2024 Progress note Formatting of t his note might be different from the original. Please let patient know that there was some bacteria in her urine but not an infection. They did not even do sensitivity as this did not need treated. Increase water intake. [facility] 10-14-2024 Miscellaneous Notes Please let patient know that there was some bacteria in her urine but not an infection. They did not even do sensitivity as this did not need treated. Increase water intake. documented in this encounter [facility] 10-13-2024 Miscellaneous Notes SITUATION: only patient and private duty caregiver present during today's visit. patient reports the following changes since the last homecare visit: medications/allergies--None, falls--None. patient reports no current pain. BACKGROUND: Diagnoses (reason for Home Care): Ataxia following cerebral infarction Objective: Patient's performance today: mod cueing to complete: language skills and speech skills. ASSESSMENT: Patient demonstrates a need for further skilled MANAGER PULMONARY services for cognitive linguistic skills, language skills and speech skills. Plan of care, progress towards goals, and visit frequency reviewed with patient. Patient is making progress towards goals Current Discharge plan: {self-care and family support; anticipated discharge date 10/16/24. RECOMMENDATION: Next visit to focus on cognitive linguistic skills, language skills and speech skills. See intervention summary for intervention/education details. documented in this encounter [facility] 10-13-2024 Patient's home Note SITUATION: only patient and private duty caregiver present during today's visit. patient reports the following changes since the last homecare visit: medications/allergies--None, falls--None. patient reports no current pain. BACKGROUND: Diagnoses (reason for Home Care): Ataxia following cerebral infarction Objective: Patient's performance today: mod cueing to complete: language skills and speech skills. ASSESSMENT: Patient demonstrates a need for further skilled MANAGER PULMONARY services for cognitive linguistic skills, language skills and speech skills. Plan of care, progress towards goals, and visit frequency reviewed with patient. Patient is making progress towards goals Current Discharge plan: {self-care and family support; anticipated discharge date 10/16/24. RECOMMENDATION: Next visit to focus on cognitive linguistic skills, language skills and speech skills. See intervention summary for intervention/education details. [facility] Work Phone: 10-13-2024 Miscellaneous Notes SITUATION: Pt. seen for ALCAZAR Routine Visit. private duty caregiver present during today's visit. patient reports the following since the last homecare visit: medications/allergies--no changes, no fall. patient reports She slept a lot better last night, She has been doing her exercises and practicing her writing. BACKGROUND: Diagnoses or reason for Home Care: Ataxia following cerebral infarction [facility] 08/22/24 on 09/20/24 Weight Bearing or [...] next by OTR/L. documented in this encounter [facility] 10-13-2024 Patient's home Note SITUATION: Pt. seen for ALCAZAR Routine Visit. private duty caregiver present during today's visit. patient reports the following since the last homecare visit: medications/allergies--no changes, no fall. patient reports She slept a lot better last night, She has been doing her exercises and practicing her writing. BACKGROUND: Diagnoses or reason for Home Care: Ataxia following cerebral infarction [facility] 08/22/24 on 09/20/24 Weight Bearing or [...] Pt. to be seen next by OTR/L. [facility] Work Phone: 10-12-2024 Instructions Tasha Deutsch APRN.CNP - 10/12/2024 12:15 PM EDT 1) Macrobid daily for 3 days 2) Will send urine for culture 3) Consider cranberry 4 oz daily 4) Loratadine 10 mg daily documented in this encounter [facility] 10-12-2024 Note HNO ID: [id number] Author: TASHA DEUTSCH APRN.CNP Service: ? Author [...] Hiatal hernia History of esophagogastroduodenoscopy (EGD) 09/23/2014 [facility]: All normal HTN (hypertension) Hyperlipidemia, [...] (Rosins), Bactrim [Sulfamethoxazole-Trimethoprim], Macrobid [Nitrofurantoin Monohyd/M-Cryst], and Qusaeoy-Cnr-Lwg Reductase Inhibitors MEDICATIONS Current Outpatient Medications Medication [...] Brother age 76 other (CVA) Brother other (ART LIBRARIAN shunt) Brother Hypertension Sister Diabetes Sister age [...] Physical Exam Tati (more content not included)... [facility] 10-12-2024 History of Present illness Narrative This [...] Hiatal hernia History of esophagogastroduodenoscopy (EGD) 09/23/2014 [facility]: All normal HTN (hypertension) Hyperlipidemia, mixed Osteoarthritis Osteopenia PUD (peptic ulcer disease) 2014 Vitamin D deficiency PAST SURGICAL HISTORY Procedure Laterality Date BUNIONECTOMY, LAPIDUS-TYPE Left 03/30/2007 Dr. Beltran BUNIONECTOMY, LAPIDUS-TYPE Right 03/30/2008 Dr. Beltran CATARACT EXTRACTION W/ INTRAOCULAR LENS IMPLANT HX Left 03/31/2003 Dr. Sosa COLONOSCOPY 09/23/[address] Addy Enriquez, [place] internal hemorrhoids, otherwise WNL COLONOSCOPY FLX DX [...] LENS Left 02/17/2003 [facility] T[facility] HIP [facility] W/WO AGRFT/ALGRFT Right 05/30/2011 ROTATOR CUFF REPAIR Right 2013 R rotator cuff repair TONSILLECTOMY HX TONSILLECTOMY PRIMARY/SECONDARY <AGE 12 Tonsillectomy TOTAL HIP JOINT REPLACEMENT Left 10/03/2014 ALLERGIES Adhesive Tape (Rosins), Bactrim [Sulfamethoxazole-Trimethoprim], Macrobid [Nitrofurantoin Monohyd/M-Cryst], and Iupbeob-Wsz-Wbq Reductase Inhibitors MEDICATIONS Current Outpatient Medications Medication [...] Brother age 76 other (CVA) Brother other (ART LIBRARIAN shunt) Brother Hypertension Sister Diabetes Sister age [...] Tasha Deutsch APRN.CNP documented in this encounter [facility] 10-12-2024 Telephone encounter Note Advised she would need to make an appointment to get a urine sample. Mara Hatch MA [facility] 10-12-2024 Miscellaneous Notes Advised she would need to make an appointment to get a urine sample. Mara Hatch MA documented in this encounter [facility] 10-11-2024 Miscellaneous Notes SITUATION: Only patient present [...] to sty close to the walker and chicken picker her feet . Able to make 2 [...] for intervention/education details. documented in this encounter [facility] 10-11-2024 Patient's home Note SITUATION: Only patient [...] to sty close to the walker and chicken picker her feet . Able to make 2 [...] directed See intervention summary for intervention/education details. [facility] Work Phone: 10-11-2024 Miscellaneous Notes SITUATION: Pt. seen for ALCAZAR Routine Visit. private duty caregiver present during today's visit. patient reports the following since the last homecare visit: medications/allergies--no changes, no fall. patient reports She's a little tired because her sleep schedule is messed up. BACKGROUND: Diagnoses or reason for Home Care: Ataxia following cerebral infarction [facility] 08/22/24 on 09/20/24 Weight Bearing or Precautions: falls ASSESSMENT: Focus of Visit [facility] Patient identified goals "to get back to normal" Plan of care, goals, and visit frequency reviewed and agreed upon with patient and/or caregiver. See intervention summary for intervention/education details. Current Discharge Plan: remain in community with/without caregiver support. Anticipate discharge by 10/29/2024 RECOMMENDATION: Next visit to focus on Bathroom Transfers,balance. documented in this encounter [facility] 10-11-2024 Patient's home Note SITUATION: Pt. seen for ALCAZAR Routine Visit. private duty caregiver present during today's visit. patient reports the following since the last homecare visit: medications/allergies--no changes, no fall. patient reports She's a little tired because her sleep schedule is messed up. BACKGROUND: Diagnoses or reason for Home Care: Ataxia following cerebral infarction [facility] 08/22/24 on 09/20/24 Weight Bearing or Precautions: falls ASSESSMENT: Focus of Visit B UE [facility] HEP Patient identified goals "to get back to normal" Plan of care, goals, and visit frequency reviewed and agreed upon with patient and/or caregiver. See intervention summary for intervention/education details. Current Discharge Plan: remain in community with/without caregiver support. Anticipate discharge by 10/29/2024 RECOMMENDATION: Next visit to focus on Bathroom Transfers,balance. [facility] Work Phone: 10-08-2024 Miscellaneous Notes SITUATION: Pt. seen for ALCAZAR Routine Visit. private duty caregiver present during today's visit. caregiver reports the following since the last homecare visit: medications/allergies--no changes, no fall. patient reports She is good, her putty is a little too hard, so she needs a artificial inseminator one. BACKGROUND: Diagnoses or reason for Home Care: Ataxia following cerebral infarction [facility] 08/22/24 on 09/20/24 Weight Bearing or [...] [facility] HEP. documented in this encounter [facility] 10-08-2024 Patient's home Note SITUATION: Pt. seen for ALCAZAR Routine Visit. private duty caregiver present during today's visit. caregiver reports the following since the last homecare visit: medications/allergies--no changes, no fall. patient reports She is good, her putty is a little too hard, so she needs a artificial inseminator one. BACKGROUND: Diagnoses or reason for Home Care: Ataxia following cerebral infarction [facility] 08/22/24 on 09/20/24 Weight Bearing or [...] to focus on B [facility] HEP. [facility] Work Phone: 10-07-2024 Miscellaneous Notes SITUATION: private [...] Patient demonstrates a need for further skilled MANAGER PULMONARY services for cognitive linguistic skills. Plan of care, progress towards goals, and visit frequency reviewed with patient and caregiver. Patient is making progress towards goals Current Discharge plan: {family support; anticipated discharge date 10/16/2024. RECOMMENDATION: Next visit to focus oncognitive linguistic skills. See intervention summary for intervention/education details. documented in this encounter [facility] 10-07-2024 Patient's home Note SITUATION: private duty [...] Patient demonstrates a need for further skilled MANAGER PULMONARY services for cognitive linguistic skills. Plan of care, progress towards goals, and visit frequency reviewed with patient and caregiver. Patient is making progress towards goals Current Discharge plan: {family support; anticipated discharge date 10/16/2024. RECOMMENDATION: Next visit to focus oncognitive linguistic skills. See intervention summary for intervention/education details. [facility] Work Phone: 10-07-2024 Telephone encounter Note Speech ordered [facility] 10-07-2024 Miscellaneous Notes Speech ordered This patient would benefit from continued speech therapy in the outpatient setting upon discharge from home care. I am requesting orders to be placed for outpatient speech therapy services to evaluate and treat for cognitive linguistic deficits and aphasia. The patient's daughter requested the orders be placed so that [facility] Thank you, Moni Rodríguez MA, CCC-MANAGER PULMONARY documented in this encounter [facility] 10-06-2024 Miscellaneous Notes SITUATION: Pt. seen for ALCAZAR Routine Visit. friend present during today's visit. patient reports the following since the last homecare visit: medications/allergies--no changes, no fall. patient reports A nurse was just here. BACKGROUND: Diagnoses or reason for Home Care: Ataxia following cerebral infarction [facility] 08/22/24 on 09/20/24 Weight Bearing or [...] functional tasks, balance. documented in this encounter [facility] 10-06-2024 Patient's home Note SITUATION: Pt. seen for ALCAZAR Routine Visit. friend present during today's visit. patient reports the following since the last homecare visit: medications/allergies--no changes, no fall. patient reports A nurse was just here. BACKGROUND: Diagnoses or reason for Home Care: Ataxia following cerebral infarction [facility] 08/22/24 on 09/20/24 Weight Bearing or [...] to focus on Daily functional tasks, balance. [facility] Work Phone: 10-06-2024 Miscellaneous Notes SITUATION: Halfway Discipline Discharge visit completed today. private duty [...] still on the eliquis and will see emergency medicine physician assistant next week to discuss the Watchman device. [...] and ST services. documented in this encounter [facility] 10-06-2024 Patient's home Note SITUATION: Halfway Discipline Discharge visit completed today. private duty [...] still on the eliquis and will see emergency medicine physician assistant next week to discuss the Watchman device. [...] continue with PT, OT and ST services. [facility] 10-06-2024 Telephone encounter Note This patient would benefit from continued speech therapy in the outpatient setting upon discharge from home care. I am requesting orders to be placed for outpatient speech therapy services to evaluate and treat for cognitive linguistic deficits and aphasia. The patient's daughter requested the orders be placed so that she can find them in [facility]. Thank you, Moni Rodríguez MA, CCC-MANAGER PULMONARY [facility] Work Phone: 10-05-2024 Telephone encounter Note I think I would. Your vitamin D level was okay on vitamin D. That may help to prevent improved bone health. [facility] 10-05-2024 Miscellaneous Notes I think I would. Your vitamin D level was okay on vitamin D. That may help to prevent improved bone health. See [employer] message. Mara Hatch MA Good news, you may stop ferrous sulfate. Blood counts are normal. Calcium is a little elevated, will monitor for now. Everything else looks good. documented in this encounter [facility] 10-05-2024 Telephone encounter Note See [employer] message. Mara Hatch MA [facility] 10-05-2024 Progress note Formatting of t his note might be different from the original. Good news, you may stop ferrous sulfate. Blood counts are normal. Calcium is a little elevated, will monitor for now. Everything else looks good. [facility] 10-04-2024 Miscellaneous Notes SITUATION: daughter and son [...] Patient demonstrates a need for further skilled MANAGER PULMONARY services for cognitive linguistic skills and aphasia. Plan of care, progress towards goals, and visit frequency reviewed with patient and caregiver. Patient is making progress towards goals Current Discharge plan: {OP rehab program; anticipated discharge date 10/16/2024. RECOMMENDATION: Next visit to focus oncognitive linguistic skills and language skills phone work/ memory/recall See intervention summary for intervention/education details. documented in this encounter [facility] 10-04-2024 Patient's home Note SITUATION: daughter and [...] Patient demonstrates a need for further skilled MANAGER PULMONARY services for cognitive linguistic skills and aphasia. Plan of care, progress towards goals, and visit frequency reviewed with patient and caregiver. Patient is making progress towards goals Current Discharge plan: {OP rehab program; anticipated discharge date 10/16/2024. RECOMMENDATION: Next visit to focus oncognitive linguistic skills and language skills phone work/ memory/recall See intervention summary for intervention/education details. [facility] Work Phone: 10-04-2024 Miscellaneous Notes SITUATION: daughter [...] for intervention/education details. documented in this encounter [facility] 10-04-2024 Patient's home Note SITUATION: daughter present [...] dc See intervention summary for intervention/education details. [facility] Work Phone: 10-04-2024 Instructions Tasha Deutsch APRN.CNP [...] and arm. - Walk around your neighborhood [place] as you feel able, gradually increasing your [...] in 4 months documented in this encounter [facility] 10-04-2024 Note HNO ID: [id number] Author: TASHA DEUTSCH APRN.CNP Service: ? Author Type: Nurse Practitioner Type: Progress Notes Filed: 10/04/2024 11:22 Note Text: This is a 84 year old female who presents today with: Patient presents with: Hospital F/U HISTORY OF PRESENT ILLNESS: Behzad Hay is a 84 year old female. 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 Wanting to consider Watchman's. Went [...] Hiatal hernia History of esophagogastroduodenoscopy (EGD) 09/23/2014 [facility]: All normal HTN (hypertension) Hyperlipidemia, mixed Osteoarthritis Osteopenia PUD (peptic ulcer disease) 2014 Vitamin D deficiency PAST SURGICAL HISTORY Procedure Laterality Date BUNIONECTOMY, LAPIDUS-TYPE Left 03/30/2007 Dr. Devin LOPEZCTOMY, LAPIDUS-TYPE Right 03/30/2008 Dr. Beltran CATARACT EXTRACTION W/ INTRAOCULAR LENS IMPLANT HX Left 03/31/2003 Dr. Sosa COLONOSCOPY 09/23/[address] Addy Enriquez, [place] internal hemorrhoids, otherwise WNL COLONOSCOPY FLX DX [...] LENS Left 02/17/2003 [facility] W/WO AGRFT/ALGRFT Right 05/30/2011 ROTATOR CUFF REPAIR Right 2013 R rotator cuff repair TONSILLECTOMY HX TONSILLECTOMY PRIMARY/SECONDARY Tonsillectomy TOTAL HIP JOINT REPLACEMENT Left 10/03/2014 ALLERGIES Adhesive Tape (Rosins), Bactrim [Sulfamethoxazole-Trimethoprim], Macrobid [Nitrofurantoin Monohyd/M-Cryst], and Hyrrsog-Rjj-Kjd Reductase Inhibitors MEDICATIONS Current Outpatient Medications Medication [...] extract (CRANBERRY ORAL) (more content not included)... [facility] 10-04-2024 History of Present illness Narrative This is a 84 year old female who presents today with: Patient presents with: Hospital F/U HISTORY OF PRESENT ILLNESS: Behzad Hay is a 84 year old female. 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 Fall risk. Wanting to consider Watchman's. Went [...] History of esophagogastroduodenoscopy (EGD) 09/23/2014 [facility]: All normal HTN (hypertension) Hyperlipidemia, mixed Osteoarthritis [...] (Rosins), Bactrim [Sulfamethoxazole-Trimethoprim], Macrobid [Nitrofurantoin Monohyd/M-Cryst], and Fhsbaah-Zue-Zfo Reductase Inhibitors MEDICATIONS Current Outpatient Medications Medication [...] Brother age 76 other (CVA) Brother other (ART LIBRARIAN shunt) Brother Hypertension Sister Diabetes Sister age [...] need for long-term anticoagulation. - Appointment with emergency medicine physician assistant scheduled for October 12 to evaluate candidacy [...] as needed for worsening/no improvement. Tasha Deutsch APRN.DIRECTOR HR COMMUNICATIONS documented in this encounter [facility] 10-01-2024 Miscellaneous Notes SITUATION: Pt was seated in recliner upon arrival. private duty caregiver present during today's visit. patient reports the following since the last homecare visit: medications/allergies--no changes, no fall. BACKGROUND: Disciplines ordered: SN, PT, OT, ST, and LICENSED LIFE AND HEALTH AGENT Primary Diagnoses (reason for Home Care): Ataxia following cerebral infarction [facility] 08/22/24 on 09/20/24 ACTIVE PROBLEM LIST [...] 24 hour assistance being provided by paid MANNEQUIN MOUNTER and a son who lives locally. She has 2 dtrs who live out of town. Son is providing meals, transportation, and assists with med managment. MANNEQUIN MOUNTER provide supervision and assist with I/ADL. Pt [...] X2 and able to answer questions apporpiately. Emissions Testing Technician strength: L - 16.6 lbs R - 8.4 lbs PLOF: Pt was Indep with self care, transfers, and light IADL tasks. She was ambulating without device in the home, with a FWW ambulating with neightbors around the neighborhood, and cane to appointments. Family was bringing in everning meal daily. She was driving, and taking care of all med management, corporate statistical financial analyst, and making MD appointments. Social Situation: Pt [...] and possible outpatient therapy. Patient evaluated by [facility] Homecare occupational therapy. Reviewed and explained homecare [...] for intervention/education details. documented in this encounter [facility] 10-01-2024 Patient's home Note SITUATION: Pt was seated in recliner upon arrival. private duty caregiver present during today's visit. patient reports the following since the last homecare visit: medications/allergies--no changes, no fall. BACKGROUND: Disciplines ordered: SN, PT, OT, ST, and LICENSED LIFE AND HEALTH AGENT Primary Diagnoses (reason for Home Care): Ataxia following cerebral infarction [facility] 08/22/24 on 09/20/24 ACTIVE PROBLEM LIST [...] 24 hour assistance being provided by paid MANNEQUIN MOUNTER and a son who lives locally. She has 2 dtrs who live out of town. Son is providing meals, transportation, and assists with med managment. MANNEQUIN MOUNTER provide supervision and assist with I/ADL. Pt [...] X2 and able to answer questions apporpiately. Emissions Testing Technician strength: L - 16.6 lbs R - 8.4 lbs PLOF: Pt was Indep with self care, transfers, and light IADL tasks. She was ambulating without device in the home, with a FWW ambulating with neightbors around the neighborhood, and cane to appointments. Family was bringing in everning meal daily. She was driving, and taking care of all med management, corporate statistical financial analyst, and making MD appointments. Social Situation: Pt [...] and possible outpatient therapy. Patient evaluated by [facility] Homecare occupational therapy. Reviewed and explained homecare [...] HEP/strengthening. See intervention summary for intervention/education details. [facility] Work Phone: 09-29-2024 Miscellaneous Notes SITUATION: friend [...] for intervention/education details. documented in this encounter [facility] 09-29-2024 Patient's home Note SITUATION: friend present [...] permits See intervention summary for intervention/education details. [facility] Work Phone: 09-29-2024 Miscellaneous Notes SITUATION: private [...] Patient demonstrates a need for further skilled MANAGER PULMONARY services for cognitive linguistic skills and language skills. Plan of care, progress towards goals, and visit frequency reviewed with patient. Patient is making progress towards goals Current Discharge plan: {family support; anticipated discharge date 10/16/24. RECOMMENDATION: Next visit to focus oncognitive linguistic skills, language skills and speech skills. See intervention summary for intervention/education details. documented in this encounter [facility] 09-29-2024 Patient's home Note SITUATION: private duty [...] Patient demonstrates a need for further skilled MANAGER PULMONARY services for cognitive linguistic skills and language skills. Plan of care, progress towards goals, and visit frequency reviewed with patient. Patient is making progress towards goals Current Discharge plan: {family support; anticipated discharge date 10/16/24. RECOMMENDATION: Next visit to focus oncognitive linguistic skills, language skills and speech skills. See intervention summary for intervention/education details. [facility] Work Phone: 09-29-2024 Miscellaneous Notes SITUATION: Halfway routine visit completed today. private duty caregiver [...] CVA sx progressing. documented in this encounter [facility] 09-29-2024 Patient's home Note SITUATION: Halfway routine visit completed today. private duty caregiver [...] check, how are post CVA sx progressing. [facility] 09-27-2024 Telephone encounter Note Noted. [facility] Work Phone: 09-27-2024 Miscellaneous Notes Noted. There has been a delay in service for Home Care OT Evaluation for this patient due to schedule conflict. Patient was notified on 09/27/24. Thank you for this referral, please contact us with any questions. Nicole Garcia documented in this encounter [facility] 09-27-2024 Telephone encounter Note There has been a delay in service for Home Care OT Evaluation for this patient due to schedule conflict. Patient was notified on 09/27/24. Thank you for this referral, please contact us with any questions. Nicole Efraíncb [facility] 09-27-2024 Miscellaneous Notes SITUATION: private duty caregiver [...] Patient demonstrates a need for further skilled MANAGER PULMONARY services for cognitive linguistic skills, language skills and speech skills. Plan of care, progress towards goals, and visit frequency reviewed with patient. Patient is making progress towards goals Current Discharge plan: {self-care and family support; anticipated discharge date 10/16/2024. RECOMMENDATION: Next visit to focus oncognitive linguistic skills and language skills. See intervention summary for intervention/education details. documented in this encounter [facility] 09-27-2024 Patient's home Note SITUATION: private duty [...] Patient demonstrates a need for further skilled MANAGER PULMONARY services for cognitive linguistic skills, language skills and speech skills. Plan of care, progress towards goals, and visit frequency reviewed with patient. Patient is making progress towards goals Current Discharge plan: {self-care and family support; anticipated discharge date 10/16/2024. RECOMMENDATION: Next visit to focus oncognitive linguistic skills and language skills. See intervention summary for intervention/education details. [facility] Work Phone: 09-25-2024 Miscellaneous Notes SITUATION: daughter present during today's visit. patient reports the following since the last homecare visit: medications/allergies--no changes, no fall. patient and caregiver reports that she is doing well but is still shuffling with the walker . BACKGROUND: Diagnoses (reason for Home Care): [facility]- then [facility] rehab 08/22/24 on 09/20/24. Ataxia following cerebral [...] Surgical Precautions: fall ASSESSMENT: Patient evaluated by [facility] Homecare physical therapy. Reviewed and explained homecare [...] for intervention/education details. documented in this encounter [facility] 09-25-2024 Patient's home Note SITUATION: daughter present during today's visit. patient reports the following since the last homecare visit: medications/allergies--no changes, no fall. patient and caregiver reports that she is doing well but is still shuffling with the walker . BACKGROUND: Diagnoses (reason for Home Care): [facility]- then [facility] rehab 08/22/24 on 09/20/24. Ataxia following cerebral infarction ACTIVE PROBLEM LIST Trigger Ring Finger of Right Hand Injury of Extensor Tendon of Hand Spontaneous Rupture of Extensor Tendon of Left Hand Acquired Trigger Finger Chronic Renal Insufficiency, Stage 3 (Moderate) ([facility]) Vitamin D Deficiency Ddd (Degenerative Disc Disease), Cervical Primary Osteoarthritis of Right Hip Collagenous Colitis Ibs (Irritable Bowel Syndrome) Hiatal Hernia Fall From Standing Rotator Cuff Tear Arthropathy, Left Paroxysmal Atrial Fibrillation (Hcc) Primary Hypertension Acute Pain of Right Shoulder Severe Pain of Left Shoulder Cervicalgia Weight Bearing or Surgical Precautions: fall ASSESSMENT: Patient evaluated by [facility] Homecare physical therapy. Reviewed and explained homecare [...] transfers See intervention summary for intervention/education details. [facility] Work Phone: 09-24-2024 Telephone encounter Note Patient was admitted to [facility] on August 22, 2024 and discharged September [...] 4.3, BUN 19, creatinine 0.98, glucose 101 [facility] 09-24-2024 Miscellaneous Notes Patient was admitted to [facility] on August 22, 2024 and discharged September [...] 0.98, glucose 101 documented in this encounter [facility] 09-23-2024 Miscellaneous Notes SITUATION: only patient and [...] for intervention/education details. documented in this encounter [facility] 09-23-2024 Patient's home Note SITUATION: only patient [...] skills. See intervention summary for intervention/education details. [facility] Work Phone: 09-23-2024 Telephone encounter Note 09/23/24 PANTOGRAPH I ENGRAVER called the pt.'s daughter Aditi Carvalho regarding community resources for the pt. The pt.'s daughter stated that she lives in [place] but her brother the pt.'s son lives [...] the pt. is doing after next week. PANTOGRAPH I ENGRAVER asked about the pt. being and if her was a . The pt.'s daughter stated the pt.'s was not a . The pt.'s daughter stated they were looking for a private Aide not through an Agency. PANTOGRAPH I ENGRAVER discussed [employer] and the pt.'s daughter stated her [id number] was looking on [employer]. She stated her [id number] had a in her family. PANTOGRAPH I ENGRAVER asked the pt.'s daughter if the pt. belonged to a yarsanism and possibly asking the yarsanism of anyone. The pt.'s daughter stated the pt. does belong to a yarsanism. PANTOGRAPH I ENGRAVER discussed [employer] [facility] [employer] for PAS[employer]. The pt.'s daughter was aware of [employer] and stated the pt. did not meet financial guidelines for Medicaid. PANTOGRAPH I ENGRAVER asked the pt.'s daughter if the pt. owns her home and educated on Estate Recovery on [employer]. PANTOGRAPH I ENGRAVER asked about transportation and family is able to get the pt. to appointments. PANTOGRAPH I ENGRAVER discussed Home Delivered Meal providers and the Aides will make the pt.'s meals. PANTOGRAPH I ENGRAVER asked the pt.'s daughter if the pt. had an ER Medical Alert and she stated they were going to look into this. PANTOGRAPH I ENGRAVER educated on getting an ER Medical Alert through [facility]. The pt.'s daughter wanted PANTOGRAPH I ENGRAVER to Email her information on ER Medical Alert providers. Her Email: [email or web address] The pt.'s daughter stated she just wanted to know about community resources and she feels they are managing the pt.'s care and the pt. having the hired Aide starting next week. PANTOGRAPH I ENGRAVER provided the pt.'s daughter with her name and phone number. 09/23/24 PANTOGRAPH I ENGRAVER Emailed the pt.'s daughter information on getting an ER Medical Alert through [facility] and other ER Medical Alerts and website for [employer] [place] [employer] Aging. Thank You, [facility] Work Phone: 09-23-2024 Miscellaneous Notes 09/23/24 PANTOGRAPH I ENGRAVER called the pt.'s daughter Aditi Carvalho regarding community resources for the pt. The pt.'s daughter stated that she lives in [place] but her brother the pt.'s son lives [...] the pt. is doing after next week. PANTOGRAPH I ENGRAVER asked about the pt. being and if her was a [place]. The pt.'s daughter stated the pt.'s was not a . The pt.'s daughter stated they were looking for a private Aide not through an Agency. PANTOGRAPH I ENGRAVER discussed [employer] and the pt.'s daughter stated her yoisgx-aj-nyq was looking on [employer]. She stated her qkxmro-px-nsq had a in her family. PANTOGRAPH I ENGRAVER asked the pt.'s daughter if the pt. belonged to a yarsanism and possibly asking the yarsanism of anyone. The pt.'s daughter stated the pt. does belong to a yarsanism. PANTOGRAPH I ENGRAVER discussed Direction Home [facility] on Aging & Disabilities for PASSPORT. The pt.'s daughter was aware of PASSPORT and stated the pt. did not meet financial guidelines for Medicaid. PANTOGRAPH I ENGRAVER asked the pt.'s daughter if the pt. owns her home and educated on Estate Recovery on PASSPORT. PANTOGRAPH I ENGRAVER asked about transportation and family is able to get the pt. to appointments. PANTOGRAPH I ENGRAVER discussed Home Delivered Meal providers and the Aides will make the pt.'s meals. PANTOGRAPH I ENGRAVER asked the pt.'s daughter if the pt. had an ER Medical Alert and she stated they were going to look into this. PANTOGRAPH I ENGRAVER educated on getting an ER Medical Alert through [facility]. The pt.'s daughter wanted PANTOGRAPH I ENGRAVER to Email her information on ER Medical Alert providers. Her Email: [email or web address] The pt.'s daughter stated she just wanted to know about community resources and she feels they are managing the pt.'s care and the pt. having the hired Aide starting next week. PANTOGRAPH I ENGRAVER provided the pt.'s daughter with her name and phone number. 09/23/24 PANTOGRAPH I ENGRAVER Emailed the pt.'s daughter information on getting an ER Medical Alert through [facility] and other ER Medical Alerts and website for [employer] [place] on Aging. Thank You, documented in this encounter [facility] 09-23-2024 Miscellaneous Notes 09/23/24 12:14 PM - 12:21 PM PANTOGRAPH I ENGRAVER called the pt.'s daughter Aditi Carvalho regarding community resources for the pt. The pt.'s daughter stated that she lives in [place] but her brother the pt.'s son lives [...] the pt. is doing after next week. PANTOGRAPH I ENGRAVER asked about the pt. being and if her was a . The pt.'s daughter stated the pt.'s was not a [place]. The pt.'s daughter stated they were looking for a private Aide not through an Agency. PANTOGRAPH I ENGRAVER discussed [employer] and the pt.'s daughter stated her liuvqc-uf-tfo was looking on [employer]. She stated her cghncb-lo-znt had a in her family. PANTOGRAPH I ENGRAVER asked the pt.'s daughter if the pt. belonged to a yarsanism and possibly asking the yarsanism of anyone. The pt.'s daughter stated the pt. does belong to a yarsanism. PANTOGRAPH I ENGRAVER discussed [facility]irection [facility] on Aging & Disabilities for PASSPORT. The pt.'s daughter was aware of PASSPORT and stated the pt. did not meet financial guidelines for Medicaid. PANTOGRAPH I ENGRAVER asked the pt.'s daughter if the pt. owns her home and educated on Estate [employer] on PASSPORT. PANTOGRAPH I ENGRAVER asked about transportation and family is able to get the pt. to appointments. PANTOGRAPH I ENGRAVER discussed Home Delivered Meal providers and the Aides will make the pt.'s meals. PANTOGRAPH I ENGRAVER asked the pt.'s daughter if the pt. had an ER Medical Alert and she stated they were going to look into this. PANTOGRAPH I ENGRAVER educated on getting an ER Medical Alert through [facility]. The pt.'s daughter wanted PANTOGRAPH I ENGRAVER to Email her information on ER Medical Alert providers. Her Email: [email or web address] The pt.'s daughter stated she just wanted to know about community resources and she feels they are managing the pt.'s care and the pt. having the hired Aide starting next week. PANTOGRAPH I ENGRAVER provided the pt.'s daughter with her name and phone number. 09/23/24 12:40 PM PANTOGRAPH I ENGRAVER Emailed the pt.'s daughter information on getting an ER Medical Alert through [facility] and other ER Medical Alerts and website for [employer] [place] [employer] Aging. 09/23/24 PANTOGRAPH I ENGRAVER messaged Tasha Deutsch APRN.NICO - PANTOGRAPH I ENGRAVER phone call with the pt.'s daughter Aditi Carvalho and that PANTOGRAPH I ENGRAVER Emailed the pt.'s daughter information on getting an ER Medical Alert through [facility] and other ER Medical Alerts and website for [employer] [place] [employer] Aging. documented in this encounter [facility] 09-23-2024 Patient's home Note 09/23/24 12:14 PM - 12:21 PM PANTOGRAPH I ENGRAVER called the pt.'s daughter Aditi Carvalho regarding community resources for the pt. The pt.'s daughter stated that she lives in [place] but her brother the pt.'s son lives [...] the pt. is doing after next week. PANTOGRAPH I ENGRAVER asked about the pt. being and if her was a [place]. The pt.'s daughter stated the pt.'s was not a [place]. The pt.'s daughter stated they were looking for a private Aide not through an Agency. PANTOGRAPH I ENGRAVER discussed [employer] and the pt.'s daughter stated her wnsxup-bc-mrw was looking on [employer]. She stated her dibfop-ku-fpl had a in her family. PANTOGRAPH I ENGRAVER asked the pt.'s daughter if the pt. belonged to a yarsanism and possibly asking the yarsanism of anyone. The pt.'s daughter stated the pt. does belong to a yarsanism. PANTOGRAPH I ENGRAVER discussed Direction [facility] on Aging & Disabilities for PASSPORT. The pt.'s daughter was aware of PASSPORT and stated the pt. did not meet financial guidelines for Medicaid. PANTOGRAPH I ENGRAVER asked the pt.'s daughter if the pt. owns her home and educated on Estate [employer] on PASSPORT. PANTOGRAPH I ENGRAVER asked about transportation and family is able to get the pt. to appointments. PANTOGRAPH I ENGRAVER discussed Home Delivered Meal providers and the Aides will make the pt.'s meals. PANTOGRAPH I ENGRAVER asked the pt.'s daughter if the pt. had an ER Medical Alert and she stated they were going to look into this. PANTOGRAPH I ENGRAVER educated on getting an ER Medical Alert through [facility]. The pt.'s daughter wanted PANTOGRAPH I ENGRAVER to Email her information on ER Medical Alert providers. Her Email: [email or web address] The pt.'s daughter stated she just wanted to know about community resources and she feels they are managing the pt.'s care and the pt. having the hired Aide starting next week. PANTOGRAPH I ENGRAVER provided the pt.'s daughter with her name and phone number. 09/23/24 12:40 PM PANTOGRAPH I ENGRAVER Emailed the pt.'s daughter information on getting an ER Medical Alert through [facility] and other ER Medical Alerts and website for [place] on Aging. 09/23/24 PANTOGRAPH I ENGRAVER messaged Tasha Deutsch APRN.DIRECTOR HR COMMUNICATIONS - PANTOGRAPH I ENGRAVER phone call with the pt.'s daughter Aditi Carvalho and that PANTOGRAPH I ENGRAVER Emailed the pt.'s daughter information on getting an ER Medical Alert through [facility] and other ER Medical Alerts and website for [place] on Aging. [facility] Work Phone: 09-23-2024 Miscellaneous Notes 09/23/24 11:03 AM - 11:04 AM PANTOGRAPH I ENGRAVER called the pt.'s daughter Aditi Carvalho and she stated that she was on another call and asked PANTOGRAPH I ENGRAVER to call her back around noon. documented in this encounter [facility] 09-23-2024 Patient's home Note 09/23/24 11:03 AM - 11:04 AM PANTOGRAPH I ENGRAVER called the pt.'s daughter Aditi Carvalho and she stated that she was on another call and asked PANTOGRAPH I ENGRAVER to call her back around noon. [facility] Work Phone: 09-22-2024 Miscellaneous Notes SITUATION: Halfway SOC visit completed today. daughter also present during today's visit. patient reports the following: Allergies--reviewed Medications--full medication reconciliation completed Falls--None DME-Reviewed and added to chart Advance Directives: Patient does have advance directives. BACKGROUND: Discharged/Referral from acute [facility] on 09/19/24 following treatment for [...] Pt's main need will be for OT, MANAGER PULMONARY and PT. Pt was not using the [...] as needed. She plans to return to [place] this weekend. Aditi is agrreable to a TC from [facility] to offer any further community resources but does not feel a vs from [facility] is necessary. Pt also has a son that lives in [place] and will be assisting with transportation to [...] Patient agreeable to PT, OT, ST and LICENSED LIFE AND HEALTH AGENT referrals. Patient declined N/A referrals. Additional concerns to be followed up on: NONE Next visit to focus on (be specific): BP check, ?improvement in mobility, speech and R sided function? documented in this encounter [facility] 09-22-2024 Patient's home Note SITUATION: Halfway SOC visit completed today. daughter also present during today's visit. patient reports the following: Allergies--reviewed Medications--full medication reconciliation completed Falls--None DME-Reviewed and added to chart Advance Directives: Patient does have advance directives. BACKGROUND: Discharged/Referral from [facility] on 09/19/24 following treatment for CVA. Pertinent [...] has a follow up appt scheduled with [facility] and cg plans to discuss [...] Pt's main need will be for OT, MANAGER PULMONARY and PT. Pt was not using the [...] as needed. She plans to return to [place] this weekend. Aditi is agrreable to a TC from [facility] to offer any further community resources but does not feel a vs from [facility] is necessary. Pt also has a son that lives in [place] and will be assisting with transportation to [...] Patient agreeable to PT, OT, ST and LICENSED LIFE AND HEALTH AGENT referrals. Patient declined N/A referrals. Additional concerns to be followed up on: NONE Next visit to focus on (be specific): BP check, ?improvement in mobility, speech and R sided function? [facility] 09-21-2024 Telephone encounter Note Patient daughter called in asking for status of her appointment date and time. [facility] Work Phone: 09-21-2024 Miscellaneous Notes Patient daughter called in asking for status of her appointment date and time. documented in this encounter [facility] 09-18-2024 Discharge summary Note Date/Time September 18, 2024 11:46am [facility] Medical Records Department [address] [place] [address] Instructions for Home/Discharge Instructions 09/17/24 0804 MR#: [id number] Acct: [id number] Name: BEHZAD HAY Rep #:[id number] : 1940 84 From: Behzad Dorado DO PCP: Tasha Deutsch, FIELD SEISMOLOGIST Status:ADM IN Discharge Instructions DC O2, CPAP, [...] emergency that you need help with. The social media campaign manager gave your family information about this. 7. It has been a pleasure having you on rehab. You are always so pleasant and ready to work with therapy and we have all enjoyed watching you get better and better. If you or your family have any questions after you leave rehab please do not hesitate to call me. OFFICE: [phone] CELL: [phone] NURSES STATION ON REHAB: [phone] Discharge Orders/Prescriptions Prescriptions: New cephalexin 500 mg [...] Santana; Dr. Swapnil Balderrama MD ~ Signed [facility] Work Phone: [phone]) 944-111606-07-2025 [facility]06-07-2025 Discharge summary [facility] Medical Records Department [address] [place] [address] Instructions for Home/Discharge Instructions 09/17/24 0804 MR#: [id number] Acct: [id number] Name: BEHZAD HAY Rep #:[id number] : 1940 84 From: Behzad Dorado DO PCP: Tasha Deutsch, FIELD SEISMOLOGIST Status:ADM IN Discharge Instructions DC O2, CPAP, [...] emergency that you need help with. The social media campaign manager gave your family information about this. 7. It has been a pleasure having you on rehab. You are always so pleasant and ready to work with therapy and we have all enjoyed watching you get better and better. If you or your family have any questions after you leave rehab please do not hesitate to call me. OFFICE: [phone] CELL: [phone] NURSES STATION ON REHAB: [phone] Discharge Orders/Prescriptions Prescriptions: New cephalexin 500 mg [...] be placed): [facility] CC: GARFIELD Deutsch; AUTOMOBILE MECHANIC HELPERPamela Santana; Dr. Swapnil Balderrama MD ~ Signed [facility]06-06-2025 Telephone encounter Note* Telephone Encounter - Tamela James - 09/17/2024 1:48 PM EDT Date/Time: 09/17/2024 1:48 PM Spoke with ADITI CARVALHO@ phone #: [phone] - Preferred # for contact: ADITI CARVALHO@ phone #: [phone] Have you received help from a home care company in the last 60 days? NO Are you agreeable to [facility] services? YES What address will we be seeing you at? [address] [facility] [address] Do you have any upcoming appointments or things we need to schedule around? NO Do you have a teachable CG or can you manage your care independently? CG Who? FAMILY [facility] Work Phone: [phone] Miscellaneous Notes* Telephone Encounter - Tamela James - 09/17/2024 1:48 PM EDT Date/Time: 09/17/2024 1:48 PM Spoke with ADITI CRISTO@ phone #: [phone] - Preferred # for contact: ADITI CARVALHO@ phone #: [phone] Have you received help from a home care company in the last 60 days? NO Are you agreeable to [facility] services? YES What address will we be seeing you at? [address] [place] [address] Do you have any upcoming appointments or things we need to schedule around? NO Do you have a teachable CG or can you manage your care independently? CG Who? FAMILY [facility] Telephone encounter Note * Telephone Encounter - Tasha Deutsch APRN.CNP - 09/17/2024 12:55 PM EDT Yes. I will follow [facility]06-06-2025 Miscellaneous Notes* Telephone Encounter - Tasha Deutsch APRN.CNP - 09/17/2024 12:55 PM EDT Yes. I will follow * Telephone Encounter - Elisha Thompson LPN - 09/17/2024 12:28 PM EDT Tasha Deutsch APRN.CNP Please advise if you are agreeable to signing and following for [facility] services? Our Clinicians will be sending the Plan of Care to you for review and approval. They will reach out for any appropriate orders required to provide home care services for the patient. We are not able to initiate HHC services without a following provider. Home care clinicians may also obtain orders from [facility] Virtualist Providers Thank you and we would be happy to answer any questions. Elisha Thompson LPN 09/17/2024 12:28 PM documented in this encounter[facility] Telephone encounter Note * Telephone Encounter - Elisha Thompson LPN - 09/17/2024 12:28 PM EDT Tasha Deutsch, POURER.DIRECTOR HR COMMUNICATIONS Please advise if you are agreeable to [...] care clinicians may also obtain orders from [facility] Virtualist Providers Thank you and we would be happy to answer any questions. Elisha Thompson LPN 09/17/2024 12:28 PM [facility]06-05-2025 Progress note Author Behzad Dorado [facility] Note Date/Time September 16, 2024 3:10p m [facility] Medical Records Department [address] [place] [address] Progress Note 09/16/24 1033 MR#: [id number] Acct: [id number] Name: BEHZAD HAY Rep #:[id number] : 1940 84 From: Behzad Dorado DO PCP: Tasha Deutsch, FIELD SEISMOLOGIST Status:ADM IN Location: [place] [address]1 Subjective Subjective Behzad was seen on team [...] [facility]. She needs a lo9t of cuing to [...] 04/11 supervision. Would like prescriptions faxed to [facility] retail pharmacy. 6. Bidet recommended for home to help maintain good hygiene post BM. 7. CBC and BMP tomorrow Charges/Coding Visit Charges Inpatient E&M: 73836 Subs Hosp L2 09/16/24 1510 <Electronically signed by Behzad Dorado DO> Behzad Dorado DO Cosigner Signature (if applicable): CC: ~ Signed [facility] Work Phone: [phone] Progress note [facility] Medical Records Department [address] [place] [address] Progress Note 09/16/24 1033 MR#: [id number] Acct: [id number] Name: BEHZAD HAY Rep #:[id number] : 1940 84 From: Behzad Weber Estrada PCP: Tasha Deutsch, FIELD SEISMOLOGIST Status:ADM IN Location: [address] Subjective Subjective Behzad was seen on [...] but,she will [facility]. She needs a lo9t of cuing to [...] / supervision. Would like prescriptions faxed to [facility] retail pharmacy. 6. Bidet recommended for home to help maintain good hygiene post BM. 7. CBC and BMP tomorrow Charges/Coding Visit Charges Inpatient E&M: 85238 Subs Hosp L2 09/16/24 1510 Behzad Weber Estrada DO Cosigner Signature (if applicable): CC: ~ Signed [facility]06-05-2025 Telephone encounter Note* Telephone Encounter - Winsome Butler MA - 09/16/2024 11:04 AM EDT Attachment sent [facility]06-05-2025 Miscellaneous Notes* Telephone Encounter - Winsome Butler MA - 09/16/2024 11:04 AM EDT Attachment sent * Telephone Encounter - Winsome Butler MA - 09/14/2024 3:25 PM EDT Completed form taken to scanning. Once completed, will sent attachment * Telephone Encounter - Mara Hatch MA - 09/14/2024 12:58 PM EDT See [employer] message. Mara Hatch MA documented [facility] Telephone encounter Note * Telephone Encounter - Winsome Butler MA - 09/14/2024 3:25 PM EDT Completed form taken to scanning. Once completed, will sent attachment [facility]06-03-2025 Progress note Author Behzad Dorado [facility] Note Date/Time September 14, 2024 12:13 pm [facility] Medical Records Department [address] [place] [address] [place] [address] Progress Note 09/14/24 1058 MR#: [id number] Acct: [id number] Name: BEHZAD HAY Rep #:[id number] : 1940 84 From: Behzad VazquezModesto Estrada PCP: Tasha Deutsch, FIELD SEISMOLOGIST Status:ADM IN [facility] Subject[facility] Subjective Day #2 Keflex for acute [...] Sl. Cloudy, Urine pH 6.0, Ur Specific [place] 1.015, Urine Protein 15 H, Urine Glucose [...] neurologic deficits. Charges/Coding Visit Charges Inpatient E&M: 31718 Subs Hosp L1 09/14/24 1213 <Electronically signed by Behzad Dorado DO> Behzad Dorado DO Cosigner Signature (if applicable): CC: ~ Signed [facility] Work Phone: 1(263) 326-648006-03-2025 Telephone encounter Note* Telephone Encounter - Mara Hatch MA - 09/14/2024 12:58 PM EDT See [employer] message. Mara Hatch MA [facility]06-03-2025 Progress note [facility] Medical Records Department [address] [place] [address] Progress Note 09/14/24 1058 MR#: [id number] Acct: [id number] Name: BEHZAD HAY Rep #:[id number] : 1940 84 From: Behzad Dorado DO PCP: Tasha Deutsch, FIELD SEISMOLOGIST Status:ADM IN Location: [place] [address]1 Subjective Subjective Day #2 Keflex for acute [...] Sl. Cloudy, Urine pH 6.0, Ur Specific [place] 1.015, Urine Protein 15 H, Urine Glucose (UA) Normal, Urine Ketones Negative, Urine Occult Blood 50 H, Urine Nitrite Positive H, Urine Bilirubin Negative, Urine Urobilinogen Normal, Ur Leukocyte Pbhplupg735 H, Urine RBC 0-5 SEEN, Urine WBC [...] neurologic deficits. Charges/Coding Visit Charges Inpatient E&M: 20843 Subs Hosp L1 09/14/24 1213 Behzad Dorado DO Cosigner Signature (if applicable): CC: ~ Signed [facility]06-02-2025 Progress note Author Behzad Dorado [facility] Note Date/Time September 13, 2024 1:43p m [facility] Medical Records Department [address] [place] [address] Progress Note 09/13/24 1158 MR#: [id number] Acct: [id number] Name: BEHZAD HAY Rep #:[id number] : 1940 84 From: Behzad Dorado DO PCP: Tasha Deutsch, FIELD SEISMOLOGIST Status:ADM IN Location: [place] [address] Subjective Subjective Afebrile VSS -blood pressure is [...] twice recently. Charges/Coding Visit Charges Inpatient E&M: 81644 Subs Hosp L1 09/13/24 1343 <Electronically signed by Behzad Dorado DO> Behzad Garciaalexus GOMEZ Cosigner Signature (if applicable): CC: ~ Signed [facility] Work Phone: 1(318) 945-453906-02-2025 Progress note [facility] Medical Records Department [address] [place] [address] Progress Note 09/13/24 1158 MR#: [id number] Acct: [id number] Name: BEHZAD HAY Rep #:[id number] : 1940 84 From: Behzad Dorado DO PCP: Tasha Deutsch, FIELD SEISMOLOGIST Status:ADM IN Location: [place] [address] Subjective Subjective Afebrile VSS -blood pressure is [...] twice recently. Charges/Coding Visit Charges Inpatient E&M: 49882 Subs Hosp L1 09/13/24 1343 Behzad Dorado DO Cosigner Signature (if applicable): CC: ~ Signed [facility]05-30-2025 Progress note Author Behzad [facility] Note Date/Time September 10, 2024 1:00p [facility] Medical Records Department [address] [place] [address] Progress Note 09/09/24 1415 MR#: [id number] Acct: [id number] Name: BEHZAD HAY Rep #:[id number] : 1940 84 From: Behzad Dorado DO PCP: Tasha Deutsch, FIELD SEISMOLOGIST Status:ADM IN Location: [place] [address] Subjective Subjective Behzad was seen on team [...] on Friday Charges/Coding Visit Charges Inpatient E&M: 00807 Subs Hosp L2 09/10/24 1300 <Electronically signed by Bezhad Dorado DO> Behzad Dorado DO Cosigner Signature (if applicable): CC: ~ Signed [facility] Work Phone: 1(427) 861-287405-30-2025 Progress note [facility] Medical Records Department [address] [place] [address] Progress Note 09/09/24 1415 MR#: [id number] Acct: [id number] Name: BEHZAD HAY Rep #:[id number] : 1940 84 From: Behzad Dorado DO PCP: Tasha Deutsch, FIELD SEISMOLOGIST Status:ADM IN Location: [place] [address] Subjective Subjective Behzad was seen on team [...] on Friday Charges/Coding Visit Charges Inpatient E&M: 92442 Subs Hosp L2 09/10/24 1300 Behzad Dorado DO Cosigner Signature (if applicable): CC: ~ Signed [facility]05-27-2025 Progress note Author Behzad Dorado [facility] Note Date/Time September 07, 2024 4:28p m [facility] Medical Records Department [address] [place] [address] Progress Note 09/05/24 0848 MR#: [id number] Acct: [id number] Name: BEHZAD HAY Rep #:[id number] : 1940 84 From: Behzad Dorado DO PCP: Tasha Deutsch, FIELD SEISMOLOGIST Status:ADM IN Location: [place] [address] Subjective Subjective Afebrile VSS -blood pressure is [...] regimen today. Charges/Coding Visit Charges Inpatient E&M: 05856 Subs Hosp L1 09/07/241627 <Electronically signed by Behzad Dorado DO> Behzad Dorado DO Cosigner Signature (if applicable): CC: ~ Signed [facility] Work Phone: 1(322) 101-974905-27-2025 Progress note Author Behzad Dorado [facility] Note Date/Time September 07, 2024 4:26p m [facility] Medical Records Department [address] [place] [address] Progress Note 09/07/241619 MR#: [id number] Acct: [id number] Name: BEHZAD HAY Rep #:[id number] : 1940 84 From: Behzad Dorado DO PCP: Tasha Deutsch, FIELD SEISMOLOGIST Status:ADM IN Location: [place] [address] Subjective Subjective Afebrile VSS -is within goal. [...] discusswith family. Charges/Coding Visit Charges Inpatient E&M: 75125 Subs Hosp L1 09/07/24 9936 <Electronically signed by Behzad Dorado DO> Behzad Dorado DO Cosigner Signature (if applicable): CC: ~ Signed [facility] Work Phone: 1(186) 484-285105-27-2025 Progress note [facility] Medical Records Department [address] [place] [address] Progress Note 09/05/24 0848 MR#: [id number] Acct: [id number] Name: BEHZAD HAY Rep #:[id number] : 1940 84 From: Behzad Dorado DO PCP: Tasha Deutsch, FIELD SEISMOLOGIST Status:ADM IN Location: [place] [address] Subjective Subjective Afebrile VSS -blood pressure is [...] regimen today. Charges/Coding Visit Charges Inpatient E&M: [address] [facility] Hosp L1 09/07/241627 Behzad Dorado DO Cosigner Signature (if applicable): CC: ~ Signed [facility]05-27-2025 Progress note [facility] Medical Records Department [address] [place] [address] Progress Note 09/07/24 162 MR#: [id number] Acct: [id number] Name: BEHZAD HAY Rep #:[id number] : 1940 84 From: Behzad Dorado DO PCP: Tasha Deutsch, FIELD SEISMOLOGIST Status:ADM IN Location: [place] [address] Subjective Subjective Afebrile VSS -is within goal. [...] discusswith family. Charges/Coding Visit Charges Inpatient E&M: 89386 Subs Hosp L1 09/07/24 1626 Behzad Dorado Cosigner Signature (if applicable): CC: ~ Signed [facility]05-23-2025 Progress note Author Behzad Dorado [facility] Note Date/Time September 03, 2024 6:45p m [facility] Medical Records Department [address] [place] [address] Progress Note 09/02/24 1038 MR#: [id number] Acct: [id number] Name: BEHZAD HAY Rep #:[id number] : 1940 84 From: Behzad Dorado DO PCP: Tasha Deutsch, FIELD SEISMOLOGIST Status:ADM IN Location: [place] [address] Subjective Subjective Behzad was seen on team [...] for today Charges/Coding Visit Charges Inpatient E&M: 48174 Subs Hosp L2 09/03/241844 <Electronically signed by Behzad Dorado DO> Behzad Dorado DO Cosigner Signature (if applicable): CC: ~ Signed ADDENDUM by Dr. Behzad Dorado DO on 09/03/24 at 1845 Addendum Orthostatic vital signs were negative. 09/03/241844 <Electronically signed by Behzad vaughan DO> Date _ Behzad Dorado DO Cosigner Signature (if applicable): Date cc: ~* Signed [facility] Work Phone: 1(462) 606-185005-23-2025 Progress note [facility] Medical Records Department [address] [place] [address] Progress Note 09/02/24 1038 MR#: [id number] Acct: [id number] Name: BEHZAD HAY Rep #:[id number] : 1940 84 From: Behzad Dorado DO PCP: Tasha Deutsch, FIELD SEISMOLOGIST Status:ADM IN Location: [place] [address] Subjective Subjective Behzad was seen on team [...] 1080. She had 1150 out. Overnight she sux446 and and 700 out for a fluid [...] for today Charges/Coding Visit Charges Inpatient E&M: 29708 Subs Hosp L2 09/03/241844 Behzad Dorado DO Cosigner Signature (if applicable): CC: ~ Signed ADDENDUM by Dr. Behzad Dorado DO on 09/03/24 at 1845 Addendum Orthostatic vital signs were negative. 09/03/241844 ti DO> Date _ Behzad Dorado DO Coskariser Signature (if applicable): Date cc: ~* Signed [facility]05-22-2025 Progress note Author Behzad Dorado [facility] Note Date/Time September 02, 2024 10:38 am [facility] Medical Records Department [address] [place] [address] Progress Note 08/31/241624 MR#: [id number] Acct: [id number] Name: BHARTIBEHZAD Rep #:[id number] : 1940 84 From: Behzad Dorado DO PCP: Tasha Deutsch, FIELD SEISMOLOGIST Status:ADM IN Location: [place] [address] Subjective Subjective Afebrile VSS - Maintaining appropriate [...] the a.m Charges/Coding Visit Charges Inpatient E&M: 44305 Subs Hosp L1 09/02/24 1038 <Electronically signed by Behzad Dorado DO> Behzad Dorado DO Cosigner Signature (if applicable): CC: ~ Signed [facility] Work Phone: 1(522) 439-324705-22-2025 Progress note [facility] Medical Records Department [address] [place] [address] Progress Note 08/31/24 1625 MR#: [id number] Acct: [id number] Name: BEHZAD HAY Rep #:[id number] : 1940 84 From: Behzad Dorado DO PCP: Tasha Deutsch, FIELD SEISMOLOGIST Status:ADM IN Location: [place] [address] Subjective Subjective Afebrile VSS - Maintaining appropriate [...] the a.m Charges/Coding Visit Charges Inpatient E&M: 14675 Subs Hosp L1 09/02/24 1038 Behzad Boyer Signature (if applicable): CC: ~ Signed [facility]05-19-2025 Progress note Author Behzad Dorado [facility] Note Date/Time August 30, 2024 2:11p m [facility] Medical Records Department [address] [place] [address] Progress Note 08/30/24 0924 MR#: [id number] Acct: [id number] Name: BEHZAD HAY Rep #:[id number] : 1940 84 From: Behzad Weber Estrada PCP: Tasha Deutsch, FIELD SEISMOLOGIST Status:ADM IN Location: [place] [address] Subjective Subjective Afebrile VSS -blood pressure over [...] CBC now Charges/Coding Visit Charges Inpatient E&M: 54093 Subs Hosp L1 08/30/24 1409 <Electronically signed [...] Signature (if applicable): Date cc: ~* Signed [facility] Work Phone: 1(377) 770-747805-19-2025 Progress note [facility] Medical Records Department [address] [place] [address] Progress Note 08/30/24 0924 MR#: [id number] Acct: [id number] Name: BEHZAD HAY Rep #:[id number] : 1940 84 From: Behzad Dorado DO PCP: Tasha Deutsch, FIELD SEISMOLOGIST Status:ADM IN Location: [place] [address] Subjective Subjective Afebrile VSS -blood pressure over [...] CBC now Charges/Coding Visit Charges Inpatient E&M: 59380 Subs Hosp L1 08/30/24 1409 Behzad Dorado [...] Signature (if applicable): Date cc: ~* Signed [facility]05-19-2025 Telephone encounter Note* Telephone Encounter - Tasha Deutsch APRN.DIRECTOR HR COMMUNICATIONS - 08/30/2024 12:39 PM EDT Patient was admitted August 22, 2024 and discharged on August 23, 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 Patient has a past history of chronic renal failure stage IV but recent labs show GFR of 74?, History of A-fib, osteoarthritis, hypertension who presents to the emergency room [facility] August 16 with complaints of confusion. In [...] Transferred to the acute inpatient rehab at [facility] August 22. She was to have physical therapy 3 hours daily. WBC 6, hemoglobin 10.9, platelets normal. Sodium 141, potassium 4.1, BUN 23, creatinine 0.78. GFR 74. Hemoglobin A1c 5.7. Calcium, phosphorus, magnesium normal. Liver function normal. Urine culture shows E. coli. Blood pressure 125/63 to 162/68. [facility]05-19-2025 Miscellaneous Notes* Telephone Encounter - Tasha Deutsch APRN.CNP - 08/30/2024 12:39 PM EDT Patient was admitted August 22, 2024 and discharged on August 23, 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 Patient has a past history of chronic renal failure stage IV but recent labs show GFR of 74?, History of A-fib, osteoarthritis, hypertension who presents to the emergency room [facility] August 16 with complaints of confusion. In [...] Transferred to the acute inpatient rehab at [facility] August 22. She was to have physical therapy 3 hours daily. WBC 6, hemoglobin 10.9, platelets normal. Sodium 141, potassium 4.1, BUN 23, creatinine 0.78. GFR 74. Hemoglobin A1c 5.7. Calcium, phosphorus, magnesium normal. Liver function normal. Urine culture shows E. coli. Blood pressure 125/63 to 162/68. [facility] Progress note Author Behzad Dorado [facility] Note Date/Time August 27, 2024 10:09 am [facility] Medical Records Department [address] [place] [address] Progress Note 08/26/24 1204 MR#: [id number] Acct: [id number] Name: BEHZAD HAY Rep #:[id number] : 1940 84 From: Behzad VazquezModesto Estrada DO PCP: Tasha Deutsch, FIELD SEISMOLOGIST Status:ADM IN Location: [place] [address] Subjective Subjective Behzad was seen on team [...] from rehab. Charges/Coding Visit Charges Inpatient E&M: 41833 Subs Hosp L2 08/27/24 1002 <Electronically signed by Behzad Dorado DO> Behzad Dorado DO Cosigner Signature (if applicable): CC: ~ Signed [facility] Work Phone: 1(367) 358-690805-16-2025 Progress note [facility] Medical Records Department [address] [place] [address] Progress Note 08/26/24 1204 MR#: [id number] Acct: [id number] Name: BEHZAD HAY Rep #:[id number] : 1940 84 From: Behzad Dorado DO PCP: Tasha Deutsch, FIELD SEISMOLOGIST Status:ADM IN Location: [place] [address] Subjective Subjective Behzad was seen on team [...] from rehab. Charges/Coding Visit Charges Inpatient E&M: 66287 Subs Hosp L2 08/27/24 1005 Behzad C. Sementi DO Cosigner Signature (if applicable): CC: ~ Signed [facility]05-15-2025 History and physical note Author Behzad Dorado [facility] Note Date/Time August 26, 2024 12:24 pm [facility] Medical Records Department [address] [place] [address] Post Admission Physician Austyn 08/23/24 1151 MR#: [id number] Acct: [id number] Name: BEHZAD HAY Rep #:[id number] : 1940 84 From: Bhezad VazquezModesto Estrada PCP: Tasha Deutsch, FIELD SEISMOLOGIST Status:ADM IN Location: [place] [address] Admission Information Primary Diagnosis:: POST STROKE DEBILITY [...] Skin integrity and Medication Management Patient needs Novelty Twister Tender/ Case Management for: Discharge Planning, Arranging Home [...] Cosigner Signature (if applicable): CC: ~ Signed [facility] Work Phone: 1(674) 478-443205-15-2025 History and physical note Author Behzad Dorado [facility] Note Date/Time August 26, 2024 12:02 pm [facility] Medical Records Department [address] [facility] [place] [address] History & Physical Exam 08/23/24 1126 MR#: [id number] Acct: [id number] Name: BEHZAD HAY Rep #:[id number] : 1940 84 From: Behzad Dorado DO PCP: Tasha Deutsch, FIELD SEISMOLOGIST Status:ADM IN Location: [place] [address] HPI - General General Date of Admission: 08/22/24 Date of Service: 08/23/24 Chief Complaint: POST STROKE DEBILITY HPI Narrative BEHZAD HAY, is a 84-year-old F with a past medical history of chronic renal failure stage IV (recent lab with GFR of 74?), history of atrial fibrillation, osteoarthritis and hypertension who presented to the emergency department at [facility] on 08/16/2024 with complaints of confusion. She [...] to the acute inpatient rehab unit at [facility] on 08/22/2024 for 3 hours of therapy [...] living. She needed assistance with cooking and slitting machine feeder. [facility] Medical History HTN (hypertension) Thoracic kyphosis Cystitis [...] Behzad Dorado DO) [facility] Sm[facility] Status: Never smoker alcohol intake: never [...] sensory loss 9. Best Language: 1 - Vjcr-uy-vdutsqoo aphasia; (trouble word finding and also trouble following commands. Able to read all the words on NIHSS scoring and allthe sentences. able to tell me what was going on in the picture and name all the objects.) 10. Dysarthria: 1 = Kush-dh-ywjjgrue dysarthria; 11. Extinction and Inattention: 1 - [...] for UTI. Charges/Coding Visit Charges Inpatient E&M: 27377 Init Hosp L3 08/26/24 1202 <Electronically signed by Behzad Dorado DO> Cosigner Signature (if applicable): CC: GARFIELD Deutsch; Dr. Behzad Dorado, DO~ Signed [facility] Work Phone: 1(679) 422-353905-15-2025 History and physical note [facility] Medical Records Department [address] [place] [address] Post Admission Physician Austyn 08/23/24 1151 MR#: [id number] Acct: [id number] Name: BEHZAD HAY Rep #:[id number] : 1940 84 From: Behzad Dorado DO PCP: Tasha Deutsch, FIELD SEISMOLOGIST Status:ADM IN Location: [place] [address] Admission Information Primary Diagnosis:: POST STROKE DEBILITY [...] Skin integrity and Medication Management Patient needs Novelty Twister Tender/ Case Management for: Discharge Planning, Arranging Home [...] Cosigner Signature (if applicable): CC: ~ Signed [facility]05-15-2025 History and physical note [facility] Medical Records Department [address] [place] [address] History & Physical Exam 08/23/24 1126 MR#: [id number] Acct: [id number] Name: BEHZAD HAY Rep #:[id number] : 1940 84 From: Behzad Dorado DO PCP: Tasha Deutsch, FIELD SEISMOLOGIST Status:ADM IN Location: [address] HPI - General General Date of Admission: 08/22/24 Date of Service: 08/23/24 Chief Complaint: POST STROKE DEBILITY HPI Narrative BEHZAD HAY, is a 84-year-old F with a past medical history of chronic renal failure stage IV (recent lab with GFR of 74?), history of atrial fibrillation, osteoarthritis and hypertension who presented to the emergency department at [facility] on 08/16/2024 with complaints of confusion. She [...] transferred to the acuteinpatient rehab unit at [facility] on 08/22/2024 for 3 hours of therapy [...] living. She needed assistance with cooking and slitting machine feeder. [facility] Medical History HTN (hypertension) Thoracic kyphosis Cystitis [...] Behzad Dorado DO) household members: [facility] Smoking Status: Never smoker alcohol intake: never [...] sensory loss 9. Best Language: 1 - Vvut-oh-siewyppb aphasia; (trouble word finding and also trouble following commands. Able to read all the words on NIHSS scoring and allthe sentences. able to tell me what was going on in the picture and name all the objects.) 10. Dysarthria: 1 = Tfxd-ph-mwunnqfd dysarthria; 11. Extinction and Inattention: 1 - [...] for UTI. Charges/Coding Visit Charges Inpatient E&M: 01865 Init Hosp L3 08/26/24 1202 Cosigner Signature (if applicable): CC: GARFIELD Deutsch; Dr. Behzad Dorado, DO~ Signed [facility]05-12-2025 Telephone encounter Note* Telephone Encounter - Tasha Deutsch APRN.[facility] - 08/23/2024 12:04 PM EDT Patient was discharged from [facility] on August 22, 2024 for acute ischemic [...] mg daily. Patient was sent to rehab. [facility]05-12-2025 Miscellaneous Notes* Telephone Encounter - Tasha Deutsch APRN.CNP - 08/23/2024 12:04 PM EDT Patient was discharged from [facility] on August 22, 2024 for acute ischemic [...] was sent to rehab. [facility]05-11-2025 Discharge summary Author Mara Mar [facility] Note Date/Time August 22, 2024 11:20 am [facility] Medical Records Department [address] [place] [address] Discharge Summary 08/22/24 0726 MR#: [id number] Acct: [id number] Name: BEHZAD HAY Rep #:[id number] : 1940 84 From: Mara Mar DO PCP: GARFIELD Maldonado Status:ADM IN Location: [place] [id number]- 1 Providers Date of Admission: 08/18/24 Date [...] who presented to the emergency department at [facility] on 08/18/2024 due to patient's family being [...] Lehman; Tyra Bains; Ousmane Cantu; Maggie Collins; eBrnabe Foreman; Zoya Sher; Addy Nuno; Melany Henderson; [...] Rehab Unit/Facility Charges/Coding Visit Charges Inpatient E&M: 36418 Disch Hosp >30min 08/22/24 1120 <Electronically signed by Mara Mar DO> Cosigner Signature (if applicable): CC: GARFIELD Deutsch; Dr. Mara Mar DO; Dr. Swapnil Balderrama MD; Dr. Lamonte Foster MD~ Signed [facility] Work Phone: 1(969) 287-839305-11-2025 Discharge summary [facility] Medical Records Department [address] [place] [address] Discharge Summary 08/22/24 0726 MR#: [id number] Acct: [id number] Name: BEHZAD HAY Rep #:[id number] : 1940 84 From: Mara Mar DO PCP: GARFIELD Maldonado Status:ADM IN [facility] Providers Date of Admission: 08/18/24 Date [...] who presented to the emergency department at [facility] on 08/18/2024 due to patient's family being [...] Attending Provider: Mara Mar Primary Care Provider: aTsha Deutsch Consulting Providers: Harley Nunez; Liu oWody; Isa Cruz; Maki López; Shalom Ledesma; Jeronimo [...] PO DAILY Referrals / Follow Up: Suppan,Tasha, FIELD SEISMOLOGIST [Primary Care Provider] - See Referral Note [...] Rehab Unit/Facility Charges/Coding Visit Charges Inpatient E&M: 60246 Disch Hosp >30min 08/22/24 1120 Cosigner Signature (if applicable): CC: GARFIELD Deutsch; Dr. Mara Mar DO; Dr. Swapnil Balderrama MD; Dr. Lamonte Foster MD~ Signed [facility]05-11-2025 [facility] Progress note Author Mara Mar [facility] Note Date/Time August 21, 2024 1:43p [facility] Medical Records Department [address] [place] [address] Progress Note - Hospitalist 08/21/24 1327 MR#: [id number] Acct: [id number] Name: BEHZAD HAY Rep #:[id number] : 1940 84 From: Mara Mar DO PCP: GARFIELD Maldonado Status:ADM IN Location: [place] [address] Reason for Visit Reason for Visit: No [...] 65% and no valvular disease - TC 189/BTY995/HDL 62/trigs of 75 - A1c 5.7 - [...] Full code Charges/Coding Visit Charges Inpatient E&M: 83858 Subs Hosp L2 NIHSS NIHSS Nursing Documentation NIHSS Nursing Documentation: NIHSS: Ischemic Stroke/TIA Start: 08/18/24 16:47 Text: For PCU Patients: NIH and Neuro Check every 4 Status: Active hours, PRN and with change in RN caregiver. Freq: [id number] Protocol: Activity Type Activity Date Activity User E-sign Co-sign Detail Recorded Client Recorded Date Recorded By Document 08/21/24 10:00 EM [id number] 08/21/24 10:37 EM 08/21/24 10:00 NIH Stroke [...] Cosigner Signature (if applicable): CC: ~ Signed [facility] Work Phone: 1(433) 543-783805-10-2025 Progress note [facility] Medical Records Department [address] [place] [address] Progress Note - Hospitalist 08/21/24 1327 MR#: [id number] Acct: [id number] Name: BEHZAD HAY Rep #:[id number] : 1940 84 From: Mara Mar DO PCP: Tasha Deutsch, FIELD SEISMOLOGIST Status:ADM IN Location: [place] [address] Reason for Visit Reason for Visit: No [...] 65% and no valvular disease - TC 189/WLQ636/HDL 62/trigs of 75 - A1c 5.7 - [...] Full code Charges/Coding Visit Charges Inpatient E&M: 02681 Subs Hosp L2 NIHSS NIHSS Nursing Documentation NIHSS Nursing Documentation: NIHSS: Ischemic Stroke/TIA Start: 08/18/24 16:47 Text: For PCU Patients: NIH and Neuro Check every 4 Status: Active hours, PRN and with change in RN caregiver. Freq: [id number] Protocol: Activity Type Activity Date Activity User E-sign Co-sign Detail Recorded Client Recorded Date Recorded By Document 08/21/24 10:00 EM [id number] 08/21/24 10:37 EM 08/21/24 10:00 NIH Stroke [...] Cosigner Signature (if applicable): CC: ~ Signed [facility]05-09-2025 Progress note Author Isa Cruz [facility] Note Date/Time August 20, 2024 2:12pm [facility] Medical Records Department [address] [place] [address] Progress Note - Neurology 08/20/24 1401 MR#: [id number] Acct: [id number] Name: BEHZAD HAY Rep #:[id number] : 1940 84 From: Isa Cruz MD PCP: Tasha Deutsch, FIELD SEISMOLOGIST Status:ADM IN Location: [place] [address] Objective Data Objective Data Vital Signs: Vital [...] hospitalization. 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 HLD: Statin to keep LDL <70. For [...] and with change in RN caregiver. Freq: [id number] Protocol: Activity Type Activity Date Activity User E-sign Co-sign Detail Recorded Client Recorded Date Recorded By Document 08/20/24 10:23 DS [id number] 08/20/24 10:26 DS 08/20/24 10:23 NIH Stroke [...] sensory loss 9. Best Language: 1 - Mxsa-oo-gifptdwb aphasia; 10. Dysarthria: 1 = Gkxy-lh-vzcuvtdi dysarthria; 11. Extinction and Inattention: 0 - No abnormality Total: 2 08/20/24 1412 <Electronically signed by Isa Cruz MD> Cosigner Signature (if applicable): CC: ~ Signed [facility] Work Phone: 1(215) 872-392005-09-2025 Progress note [facility] Medical Records Department [address] [place] [address] Progress Note - Neurology 08/20/24 1401 MR#: [id number] Acct: [id number] Name: BEHZAD HYA Rep #:[id number] : 1940 84 From: Isa Cruz MD PCP: Tasha Deutsch, FIELD SEISMOLOGIST Status:ADM IN Location: [place] [address] Objective Data Objective Data Vital Signs: Vital [...] am and Dc DAPT 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 HLD: Statin to keep LDL <70. For [...] and with change in RN caregiver. Freq: [id number] Protocol: Activity Type Activity Date Activity User E-sign Co-sign Detail Recorded Client Recorded Date Recorded By Document 08/20/24 10:23 DS [id number] 08/20/24 10:26 DS 08/20/24 10:23 NIH Stroke [...] sensory loss 9. Best Language: 1 - Awbr-ts-rvsoanmm aphasia; 10. Dysarthria: 1 = Vdli-zy-evqloqfq dysarthria; 11. Extinction and Inattention: 0 - No abnormality Total: 2 08/20/24 1412 Cosigner Signature (if applicable): CC: ~ Signed [facility]05-09-2025 Progress note Author Mara Mar [facility] Note Date/Time August 20, 2024 11:51a m [facility] Medical Records Department [address] [place] [address] Progress Note - Hospitalist 08/20/24 1140 MR#: [id number] Acct: [id number] Name: BEHZAD HAY Rep #:[id number] : 1940 84 From: Mara Mar DO PCP: Tasha Deutsch, FIELD SEISMOLOGIST Status:ADM IN Location: [place] [id number]- 1 Reason for Visit Reason for Visit: [...] 65% and no valvular disease - TC 189/NDL197/HDL 62/trigs of 75 - A1c 5.7 - [...] Full code Charges/Coding Visit Charges Inpatient E&M: 88445 Subs Hosp L1 NIHSS NIHSS Nursing Documentation NIHSS Nursing Documentation: NIHSS: Ischemic Stroke/TIA Start: 08/18/24 16:47 Text: For PCU Patients: NIH and Neuro Check every 4 Status: Active hours, PRN and with change in RN caregiver. Freq: [id number] Protocol: Activity Type Activity Date Activity User E-sign Co-sign Detail Recorded Client Recorded Date Recorded By Document 08/20/24 10:23 DS [id number] 08/20/24 10:26 DS 08/20/24 10:23 NIH Stroke [...] Cosigner Signature (if applicable): cc: ~* Signed [facility] Work Phone: 1(718) 469-722505-09-2025 Progress note [facility] Medical Records Department [address] [place] [address] Progress Note - Hospitalist 08/20/24 1140 MR#: [id number] Acct: [id number] Name: BEHZAD HAY Rep #:[id number] : 1940 84 From: Mara Mar DO PCP: Tasha Deutsch, FIELD SEISMOLOGIST Status:ADM IN Location: [place] [address] Reason for Visit Reason for Visit: Confusion/dysarthria/dysmetria [...] 65% and no valvular disease - TC 189/EMO147/HDL 62/trigs of 75 - A1c 5.7 - [...] Full code Charges/Coding Visit Charges Inpatient E&M: 31704 Subs Hosp L1 NIHSS NIHSS Nursing Documentation NIHSS Nursing Documentation: NIHSS: Ischemic Stroke/TIA Start: 08/18/24 16:47 Text: For PCU Patients: NIH and Neuro Check every 4 Status: Active hours, PRN and with change in RN caregiver. Freq: [id number] Protocol: Activity Type Activity Date Activity User E-sign Co-sign Detail Recorded Client Recorded Date Recorded By Document 08/20/24 10:23 DS [id number] 08/20/24 10:26 DS 08/20/24 10:23 NIH Stroke [...] unit and then will need [facility]ERT from [facility] prior to discharge 08/20/24 1151 Cosigner Signature (if applicable): cc: ~* Signed [facility]05-08-2025 Progress note Author Mara Mar [facility] Note Date/Time August 19, 2024 4:41pm [facility] Medical Records Department [address] [place] [address] [place] [address] Progress Note - Hospitalist 08/19/24 5523 MR#: [id number] Acct: [id number] Name: BEHZAD HAY Rep #:[id number] : 1940 84 From: Mara Mar DO PCP: Tasha Deutsch, FIELD SEISMOLOGIST Status:ADM IN Location: [place] [address] Reason for Visit Reason for Visit: Confusion/dysarthria/dysmetria [...] (Auto) 67.8, Lymph % (Auto) 18.3 L, Cooke % (Auto) 8.5, Eos % (Auto) 3.9, [...] 6:39 pm with readback verification. Reading [facility] Echocardiogram 08/18/24 13:14 Interpretation Summary The [...] 65% and no valvular disease - TC 189/EHK323/HDL 62/trigs of 75 - A1c 5.7 - [...] Full code Charges/Coding Visit Charges Inpatient E&M: 93075 Subs Hosp L2 NIHSS NIHSS Nursing Documentation NIHSS Nursing Documentation: NIHSS: Ischemic Stroke/TIA Start: 08/18/24 16:47 Text: For PCU Patients: NIH and Neuro Check every 4 Status: Active hours, PRN and with change in RN caregiver. Freq: [id number] Protocol: Activity Type Activity Date Activity User E-sign Co-sign Detail Recorded Client Recorded Date Recorded By Document 08/19/24 15:20 ELISE [id number] 08/19/24 15:32 ELISE 08/19/24 15:20 NIH Stroke [...] Cosigner Signature (if applicable): CC: ~ Signed [facility] Work Phone: 1(902) 717-287905-08-2025 Discharge summary Author Fawad Cordon [facility] Note Date/Time August 19, 2024 2:57pm [facility] Medical Records Department [address] [place] [address] Emergency Department Summary 08/18/24 MR#: [id number] Acct: [id number] Name: BEHZAD HAY Rep #:[id number] : 1940 84 From: Fawad Last PCP: Tasha Deutsch, FIELD SEISMOLOGIST Status:ADM IN Location: [address] History of Present Illness Chief Complaint: [...] night but did not injure herself. [facility] Medical History Osteoarthritis CKD (chronic kidney disease), [...] 79.2 H Lymph % (Auto) 10.9 L Cooke % (Auto) 7.5 Eos % (Auto) 0.7 [...] Sl. Cloudy Urine pH 7.0 Ur Specific Frederick 1.005 Urine Protein 30 H Urine Glucose [...] status), Stroke Disposition Disposition: Acute Care Hospital [facility] NIHSS NIHSS 1a. Level of Consciousness: 0 [...] No aphasia; normal 10. Dysarthria: 1 = Rftj-rs-jcsmmdey dysarthria; 11. Extinction and Inattention: 0 - [...] No aphasia; normal 10. Dysarthria: 1 = Bbih-de-jyonzuvr dysarthria; 11. Extinction and Inattention: 0 - No abnormality Total: 3 What to do if you have Problems For any increased pain, shortness of breath, bleeding, nausea or vomiting, chestpain, or any unexpected problems, contact your Primary Care Provider. Call [facility] ([phone]) or report to the closest Emergency Room. Call 911 if necessary. 08/19/24 1457 <Electronically signed by Fawad Cordon DO> Cosigner Signature (if applicable): CC: FIELD SEISMOLOGIST Tasha Deutsch ~ Signed [facility] Work Phone: 1(945) 151-749305-08-2025 Progress note [facility] Records Department [address] [place] [address] Progress Note - Hospitalist 08/19/24 1627 MR#: [id number] Acct: [id number] Name: BEHZAD HAY Rep #:[id number] : 1940 84 From: Mara Mar DO PCP: Tasha Deutsch, FIELD SEISMOLOGIST Status:ADM IN Location: [place] [address] Reason for Visit Reason for Visit: Confusion/dysarthria/dysmetria [...] (Auto) 67.8, Lymph % (Auto) 18.3 L, Cooke % (Auto) 8.5, Eos % (Auto) 3.9, [...] 6:39 pm with readback verification. Reading Location[facility] Echocardiogram 08/18/24 13:14 Interpretation Summary The [...] 65% and no valvular disease - TC 189/XZN388/HDL 62/trigs of 75 - A1c 5.7 - [...] Full code Charges/Coding Visit Charges Inpatient E&M: 98624 Subs Hosp L2 NIHSS NIHSS Nursing Documentation NIHSS Nursing Documentation: NIHSS: Ischemic Stroke/TIA Start: 08/18/24 16:47 Text: For PCU Patients: NIH and Neuro Check every 4 Status: Active hours, PRN and with change in RN caregiver. Freq: [id number] Protocol: Activity Type Activity Date Activity User E-sign Co-sign Detail Recorded Client Recorded Date Recorded By Document 08/19/24 15:20 ELISE [id number] 08/19/24 15:32 ELISE 08/19/24 15:20 NIH Stroke [...] Cosigner Signature (if applicable): CC: ~ Signed [facility]05-08-2025 Consult note Author Isa Cruz [facility] Note Date/Time August 19, 2024 2:17pm [facility] Records Department [address] [place] [address] Consultation - Neurology 08/19/24 1355 MR#: [id number] Acct: [id number] Name: BEHZAD HAY Rep #:[id number] : 1940 84 From: Isa Cruz MD PCP: Tasha Deutsch, FIELD SEISMOLOGIST Status:ADM IN Location: [place] [address] Assessment and Plan: Stroke Assessment/Plan BEHZAD HAY [...] keep LDL <70. Permissive hypertension acutely and usp will need it under control PT OT, speech, swallow evaluation Stroke education Thanks for the consultation. Spent 70 min in evaluation and management of the patient. HPI Consult Data Date of Consult: 08/19/24 HPI Narrative HPI Narrative: BEHZAD HAY, is a 84 F with a history of atrial fibrillation who presents tothe emergency department at [facility] on 08/18/2024 due to patient's family being [...] right leg and was havingword finding difficulty. [facility] Medical History (Updated 08/18/24 @ 21:46 by [...] (Auto) 67.8, Lymph % (Auto) 18.3 L, Cooke % (Auto) 8.5, Eos % (Auto) 3.9, [...] 6:39 pm with readback verification. Reading [facility] Echocardiogram 08/18/24 13:14 Interpretation Summary The [...] intracranial vasculature. 4. Findings along the distal KJEI-zjobvuq-jpxh-RIGHT ICAs suspicious for vasculopathy such as fibromuscular [...] telephone to Tito 08/18/2024 at 12:17 pm [facility]. Reading Location: [id number] Active Medications Active Medications Active Medications: Current [...] mls @ 15 mls/hr 08/18/24 16:00 IV .[id number] PRN Saline Flush Sodium Chloride 250 mls @ 15 mls/hr 08/18/24 16:00 IV .[id number] PRN Additional IVPB Infusion Ceftriaxone Sodium 1 [...] and with change in RN caregiver. Freq: [id number] Protocol: Activity Type Activity Date Activity User E-sign Co-sign Detail Recorded Client Recorded Date Recorded By Document 08/19/24 11:21 ELISE [id number] 08/19/24 11:53 ELISE 08/19/24 11:21 NIH Stroke [...] sensory loss 9. Best Language: 1 - Akyg-sn-eqrmixai aphasia; 10. Dysarthria: 1 = Ifyd-ap-ucucdcxl dysarthria; 11. Extinction and Inattention: 0 - No abnormality Total: 3 08/19/24 1417 <Electronically signed by Isa Cruz MD> Cosigner Signature (if applicable): CC: FIELD SEISMOLOGIST Tasha Deutsch~ Signed [facility] Work Phone: 1(813) 203-770005-08-2025 Discharge summary [facility] Department [address] [place] [address] Emergency Department Summary 08/18/24 MR#: [id number] Acct: [id number] Name: BEHZAD HAY Rep #:[id number] : 1940 84 From: Fawad Last PCP: Tasha Deutsch, FIELD SEISMOLOGIST Status:ADM IN Location: [place] [address] HPI History of Present Illness Chief Complaint: [...] night but did not injure herself. [facility] Medical History Osteoarthritis CKD (chronic kidney disease), [...] oriented x3 and no sensory deficits noted [place] Coma Scale: document GCS findings Spontaneous Obeys [...] 79.2 H Lymph % (Auto) 10.9 L Cooke % (Auto) 7.5 Eos % (Auto) 0.7 [...] Sl. Cloudy Urine pH 7.0 Ur Specific Frederick 1.005 Urine Protein 30 H Urine Glucose [...] status), Stroke Disposition Disposition: Acute Care Hospital [facility] NIHSS NIHSS 1a. Level of Consciousness: 0 [...] No aphasia; normal 10. Dysarthria: 1 = Lopx-cx-pikwwdkv dysarthria; 11. Extinction and Inattention: 0 - [...] No aphasia; normal 10. Dysarthria: 1 = Plqg-xw-dxfjgryx dysarthria; 11. Extinction and Inattention: 0 - No abnormality Total: 3 What to do if you have Problems For any increased pain, shortness of breath, bleeding, nausea or vomiting, chestpain, or any unexpected problems, contact your Primary Care Provider. Call [facility] ([phone]) or report tothe closest Emergency Room. Call 911 if necessary. 08/19/24 1457 Cosigner Signature (if applicable): CC: FIELD SEISMOLOGIST Tasha Deutsch ~ Signed [facility]05-08-2025 Consult note [facility] Medical Records Department [address] [place] [address] Consultation - Neurology 08/19/24 1355 MR#: [id number] Acct: [id number] Name: BEHZAD HAY Rep #:[id number] : 1940 84 From: Isa Cruz MD PCP: Tasha Deutsch, FIELD SEISMOLOGIST Status:ADM IN Location: [place] [address] Assessment and Plan: Stroke Assessment/Plan BEHZAD HAY [...] keep LDL <70. Permissive hypertension acutely and usp will need it under control PT OT, speech, swallow evaluation Stroke education Thanks for the consultation. Spent 70 min in evaluation and management of the patient. HPI Consult Data Date of Consult: 08/19/24 HPI Narrative HPI Narrative: BEHZAD HAY, is a 84 F with a history of atrial fibrillation who presents tot emergency department at [facility] on 08/18/2024 due to patient's family being [...] right leg and was havingword finding difficulty. [facility] Medical History (Updated 08/18/24 @ 21:46 by [...] (Auto) 67.8, Lymph % (Auto) 18.3 L, Cooke % (Auto) 8.5, Eos % (Auto) 3.9, [...] 6:39 pm with readback verification. [facility] Echocardiogram 08/18/24 13:14 Interpretation Summary The LV systolic function is normal. EF is 65 %. Diastolic function is indeterminate. The left atrium is mildly enlarged. Mild focal mitral valve calcification of the posterior leaflet. Mildly calcified aortic valve. Aortic valve sclerosis without stenosis. Mildly calcified aortic root. Ordering Physician: Mara aMr Performed By: Abelardo Romero RCS Head/Neck CTA [...] intracranial vasculature. 4. Findings along the distal ASJD-uiwwzbm-pgie-RIGHT ICAs suspicious for vasculopathy such as fibromuscular [...] telephone to Tito 08/18/2024 at 12:17 pm [facility]. Reading Location: [id number] Active Medications Active Medications Active Medications: Current [...] mls @ 15 mls/hr 08/18/24 16:00 IV .[id number] PRN Saline Flush Sodium Chloride 250 mls @ 15 mls/hr 08/18/24 16:00 IV .[id number] PRN Additional IVPB Infusion Ceftriaxone Sodium 1 [...] and with change in RN caregiver. Freq: [id number] Protocol: Activity Type Activity Date Activity User E-sign Co-sign Detail Recorded Client Recorded Date Recorded By Document 08/19/24 11:21 ELISE [id number] 08/19/24 11:53 ELISE 08/19/24 11:21 NIH Stroke [...] sensory loss 9. Best Language: 1 - Kidp-ph-mcxkpfks aphasia; 10. Dysarthria: 1 = Mwkc-qe-oxrvraec dysarthria; 11. Extinction and Inattention: 0 - No abnormality Total: 3 08/19/24 1417 Cosigner Signature (if applicable): CC: GARFIELD Deutsch~ Signed [facility]05-07-2025 History and physical note Author Mara Mar [facility] Note Date/Time August 18, 2024 9:47pm [facility] [address] [place] [address] H&P Exam - Hospitalist 08/18/24 1305 MR#: [id number] Acct: [id number] Name: BEHZAD HAY Rep #:[id number] : 1940 84 From: Mara Mar DO PCP: Tasha Deutsch, FIELD SEISMOLOGIST Status:ADM JENNY Location: [place] [address] HPI - General General Date of Admission: 08/18/24 Date of Service: 08/18/24 Chief Complaint: Confusion/dysarthria/dysmetria right-sided HPI Narrative BEHZAD HAY, is a 84 F who presented to the emergency department at [facility] on 08/18/2024 due to patient's family being [...] on ceftriaxone and urine culture was sent. [facility] Medical History (Updated 08/18/24 @ 21:46 by [...] 79.2 H, Lymph % (Auto) 10.9 L, Cooke % (Auto) 7.5, Eos % (Auto) 0.7, [...] Sl. Cloudy, Urine pH 7.0, Ur Specific Frederick 1.005, Urine Protein 30 H, Urine Glucose [...] Full code Charges/Coding Visit Charges Inpatient E&M: 01593 Init Hosp L2 08/18/24 6910 <Electronically signed by Mara Mar DO> Cosigner Signature (if applicable): CC: GARFIELD Deutsch; Dr. Mara Mar DO~ Signed [facility] Work Phone: 1(784) 195-447305-07-2025 History and physical note [facility] [address] [place] [address] H&P Exam - Hospitalist 08/18/24 1305 MR#: [id number] Acct: [id number] Name: BEHZAD HAY Rep #:[id number] : 1940 84 From: Mara Mar DO PCP: Tasha Deutsch, FIELD SEISMOLOGIST Status:ADM JENNY Location: [place] [address] HPI - General General Date of Admission: 08/18/24 Date of Service: 08/18/24 Chief Complaint: Confusion/dysarthria/dysmetria right-sided HPI Narrative BEHZAD HAY, is a 84 F who presented to the emergency department at [facility] on 08/18/2024 due to patient's family being [...] on ceftriaxone and urine culture was sent. [facility] Medical History (Updated 08/18/24 @ 21:46 by [...] 79.2 H, Lymph % (Auto) 10.9 L, Cooke % (Auto) 7.5, Eos % (Auto) 0.7, [...] 0.13, AST 36 H, ALT 24, Alkaline Zolfiznytdg38, Total Protein 7.6, Albumin 4.4, Globulin 3.2, Ethyl Alcohol < 10.1 08/18/24 11:35: Urine Color Yellow, Urine Clarity Sl. Cloudy, Urine pH 7.0, Ur Specific Frederick 1.005, Urine Protein 30 H, Urine Glucose (UA) Normal, Urine Ketones Negative, Urine Occult Blood 50 H, Urine Nitrite Positive H, Urine Bilirubin Negative, Urine Urobilinogen Normal, Ur Leukocyte Xlaeyaxx281 H, Urine RBC 0 SEEN, Urine WBC [...] Full code Charges/Coding Visit Charges Inpatient E&M: 87721 Init Hosp L2 08/18/247 Cosigner Signature (if applicable): CC: GARFIELD Deutsch; Dr. Mara Mar, DO~ Signed [facility]05-07-2025 Evaluation note* Diagnosis Onset Date Resolution Status Admit Date Acute UTI acute August 18, 2024 1:06pm AMS (altered mental status) acute August 18, 2024 1:06pm Stroke acute August 18, 2024 1:06pm [facility] Work Phone: [phone]) 861-381305-07-2025 Evaluation note* Diagnosis Onset Date Resolution Status Admit Date Abnormal urinalysis acute August 182024 1:06pm Dysarthria acute August 18, 2024 1:06pm Dysmetria acute August 18, 2024 1:06pm Acute UTI deleted August 18, 2024 1:06pm AMS (altered mental status) deleted August 18, 2024 1:06pm Stroke deleted August 18, 2024 1:06pm [facility] Work Phone: 1(242) 811-838905-07-2025 Evaluation note* Diagnosis Onset Date Resolution Status [...] 1:55pm HTN (hypertension) chronic August 222024 1:55pm [facility] Work Phone: 1(203) 768-770005-07-2025 Evaluation note* Diagnosis Onset Date Resolution Status [...] 2024 1:55pm Thoracic kyphosis inactive August 1:55pm [facility] Work Phone: 1(774) 396-159705-07-2025 Evaluation note* Diagnosis Onset Date Resolution Status [...] atrial fibrillation acute October 04, 2024 8:55am [facility] Work Phone: 1(610) 199-165505-07-2025 Evaluation note* Diagnosis Onset Date Resolution Status [...] fibrillation chron ic October 12, 2024 9:13am [facility] Work Phone: 1(785) 146-568405-07-2025 Radiology Diagnostic study note [facility] Imaging Services [address] [place] [address] [id number] STROKE CTA Head AND Neck W/Con MR#: [id number] Acct: [id number] Name: BEHZAD HAY Rep #: [id number] : 1940 F 84 From: Maday Meléndez MD PCP: Tasha Deutsch, FIELD SEISMOLOGIST Status: REG ER Study:STROKE CTA Head AND Neck W/Con Date of Exam: 08/18/24 Exam# [id number] Ordering Dr: Eliana Mar DO PROCEDURE: STROKE [...] M2/M3 and distal A2/A3. Posterior circulation: Focal flezmevt-ii-mccrbw stenosis of proximal RIGHT PICA. Tortuous basilar [...] intracranial vasculature. 4. Findings along the distal UMPJ-tjncflo-ouhe-RIGHT ICAs suspicious for vasculopathy such as fibromuscular dysplasia, although notably fibromuscular dysplasia would be somewhat unusual in this demographic. 5. 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 Recommend clinical follow-up. 6. Additional description as above. Red Alert: #1-2 above The critical information above was relayed directly by me by telephone to [facility] 08/18/2024 at 12:17 pm [facility]. Reading Location: [id number] CC: FIELD SEISMOLOGIST Tasha Deutsch; Dr. Mara Mar, ~ Uniform Maker: Signed [facility]03-24-2025 Telephone encounter Note* Telephone Encounter - Tasha Deutsch APRN.CNP - 07/05/2024 1:03 PM EDT The following approved medication requests have been transmitted electronically. Requested Prescriptions Pending Prescriptions Disp Refills lisinopril (ZESTRIL) 30 mg tablet 90 tablet 3 Sig: Take 1 tablet by mouth once daily. Tasha Deutsch APRN.CNP [facility]03-24-2025 Miscellaneous Notes* Telephone Encounter - Tasha Deutsch [...] 05, 2024 9:03 AM documented in this encounterOhio[facility] Telephone encounter Note * Telephone Encounter - [...] Tenisha Quarles July 05, 2024 9:03 AM [facility]01-13-2025 Telephone encounter Note* Telephone Encounter - Winsome Butler MA - 04/26/2024 4:49 PM EST Patient was made aware of the results. Patient verbalizes understanding. Winsome Butler Ma [facility]01-13-2025 Miscellaneous Notes* Telephone Encounter - Winsome Butler [...] it for 10 days. documented in this encounterOhio[facility]2025 Telephone encounter Note * Telephone Encounter - [...] need to take it for 10 days. [facility]01-13-2025 Instructions* Patient Instructions* Tasha Deutsch APRN.CNP - 04/26/2024 10:46 AM EST 1) Check labs 2) Duoderm applied to left foot 3) Consider sheep's wool for left foot 4) Follow up in 6 months documented in this encounterOhio[facility]-2025 NoteHNO ID: [id number] Author: TASHA DEUTSCH APRN.CNP Service: ? Author [...] Hiatal hernia History of esophagogastroduodenoscopy (EGD) 09/23/2014 [facility]: All normal HTN (hypertension) Hyperlipidemia, [...] LENS Left 02/17/2003 [facility] W/WO AGRFT/ALGRFT Right 05/30/2011 ROTATOR CUFF REPAIR Right 2013 R rotator cuff repair TONSILLECTOMY HX TONSILLECTOMY PRIMARY/SECONDARY Tonsillectomy TOTAL HIP JOINT REPLACEMENT Left 10/03/2014 [facility] Adhesive Tape (Rosins), Bactrim [Sulfamethoxazole-Trimethoprim], Macrobid [Nitrofurantoin Monohyd/M-Cryst], and Nnwyhss-Eji-Ycy Reductase Inhibitors MEDICATIONS Current Outpatient Medications Medication [...] Brother age 76 other (CVA) Brother other (ART LIBRARIAN shunt) Brother Hypertension Sister Diabetes Sister age [...] No history of dysuria (more content not included)...[facility]01-13-2025 History of Present illness Narrative* Tasha Deutsch APRN.[facility] - 04/26/2024 10:21 AM EST This [...] Hiatal hernia History of esophagogastroduodenoscopy (EGD) 09/23/2014 [facility]: All normal HTN (hypertension) Hyperlipidemia, [...] Tape (Rosins), Bactrim [Sulfamethoxazole-Trimethoprim], Macrobid [NitrofurantoinMonohyd/M-Cryst], and Lzyzzjd-Gmv-Gqc Reductase Inhibitors MEDICATIONS Current Outpatient Medications Medication [...] Brother age 76 other (CVA) Brother other (ART LIBRARIAN shunt) Brother Hypertension Sister Diabetes Sister age [...] Duoderm applied 13. Stress incontinence - ICD9: [id number], ICD10: N39.3 Urgency - URINALYSIS, REFLEX MICROSCOPIC - SOLIFENACIN 5 MG TABLET Discussed treatment plan and patient voices understanding. Patient's questions answered appropriately. Medications and potential side effects were discussed and patient voices understanding. Return to the office as scheduled or as needed for worsening/no improvement. Tasha Deutsch APRN.NICO documented in this encounterOhiohealth [facility]12-26-2024 Telephone encounter Note * Telephone Encounter - Mara Hatch MA - 04/08/2024 1:44 PM EST Pt notified and voiced understanding. Mara Hatch MA [facility]12-26-2024 Miscellaneous Notes* Telephone Encounter - Mara Hatch [...] this urinary tract bacteria. documented in this encounterOhiohealth [facility]12-26-2024 Telephone encounter Note * Telephone Encounter - Mara Hatch MA - 04/08/2024 1:43 PM EST ----- Message from Tasha Deutsch sent at 04/08/2024 9:12 AM EST ----- Your urine cultured E. coli. You did have a urinary tract infection. However, the antibiotic that Iput you on for Sinusitis will be effective for this urinary tract bacteria. [facility]12-24-2024 Telephone encounter Note* Telephone Encounter - Winsome Butler MA - 04/06/2024 8:17 AM EST Patient notified that culture is in process and she will be notified of Friday of results. Winsome Butler MA April 06, 2024 8:18 AM [facility]12-24-2024 Miscellaneous Notes* Telephone Encounter - Winsome Butler [...] for that on Friday. documented in this encounterOhiohealth [facility]12-24-2024 Telephone encounter Note * Telephone Encounter - Winsome Butler MA - 04/06/2024 8:14 AM EST ----- Message from Tasha Deutsch sent at 04/06/2024 8:01 AM EST ----- It looks like you may have a urinary tract infection. I did order a reflex culture if needed. We will watch for that on Friday. [facility]12-23-2024 Instructions* Patient Instructions* Tasha Deutsch APRN.CNP - 04/05/2024 3:44 PM EST - AMOXICILLIN 875 MG-POTASSIUM CLAVULANATE 125 MG TABLET - Saline nasal spray frequently while on antibiotic - Send urinalysis with reflex documented in this encounterOhiohealth [facility]12-23-2024 NoteHNO ID: [id number] Author: TASHA DEUTSCH APRN.CNP Service: ? Author [...] hernia History of esophagogastroduodenoscopy (EGD) 09/23/2014 [facility]: All normal HTN (hypertension) Hyperlipidemia, mixed Osteoarthritis [...] (Rosins), Bactrim [Sulfamethoxazole-Trimethoprim], Macrobid [Nitrofurantoin Monohyd/M-Cryst], and Ocvbzfi-Wsf-Fgs Reductase Inhibitors MEDICATIONS Current Outpatient Medications Medication [...] Brother age 76 other (CVA) Brother other (ART LIBRARIAN shunt) Brother Hypertension Sister Diabetes Sister age [...] matter Cardiovascular: Rate an (more content not included)...[facility]12-23-2024 History of Present illness Narrative* Tasha Deutsch APRN.DIRECTOR HR COMMUNICATIONS - 04/05/2024 3:35 PM EST This is [...] hernia History of esophagogastroduodenoscopy (EGD) 09/23/2014 [facility]: All normal HTN (hypertension) Hyperlipidemia, mixed Osteoarthritis [...] Tape (Rosins), Bactrim [Sulfamethoxazole-Trimethoprim], Macrobid [NitrofurantoinMonohyd/M-Cryst], and Bsiaesb-Duz-Aoy Reductase Inhibitors MEDICATIONS Current Outpatient Medications Medication [...] Brother age 76 other (CVA) Brother other (ART LIBRARIAN shunt) Brother Hypertension Sister Diabetes Sister age [...] - ICD9: 788.63, ICD10: R39.15 May need uro-gyn physician consult - URINALYSIS WITH MICROSCOPIC, REFLEX CULTURE Discussed treatment plan and patient voices understanding. Patient's questions answered appropriately. Medications and potential side effects were discussed and patient voices understanding. Return to the office as scheduled or as needed for worsening/no improvement. Tasha Deutsch APRN.CNP documented in this encounterOhiohealth [facility]08-23-2024 Instructions* Patient Instructions* Tasha Deutsch APRN.CNP - 12/05/2023 11:10 AM EDT 1) Keep appt. In April as scheduled 2) Continue walking as often as possible 3) Continue acetaminophen rather than ibuprofen (Advil) 4) Follow up in April as scheduled 04/26/24 documented in this encounterOhiohealth [facility]08-[facility] History of Present illness Narrative* Tasha Deutsch [...] History of esophagogastroduodenoscopy (EGD) Comment: [facility]: All normal No date: HTN (hypertension) No [...] Tape (Rosins), Bactrim [Sulfamethoxazole-Trimethoprim], Macrobid [NitrofurantoinMonohyd/M-Cryst], and Tslissa-Xjl-Wdb Reductase Inhibitors MEDICATIONS Current Outpatient Medications Medication [...] Brother age 76 other (CVA) Brother other (ART LIBRARIAN shunt) Brother Hypertension Sister Diabetes Sister age [...] improvement. Tasha Deutsch APRN.CNP documented in this encounterOhiohealth [facility]07-15-2024 Instructions* Patient Instructions* Tasha Deutsch APRN.CNP - 10/27/2023 10:08 AM EDT 1) Continue current medications 2) Melatonin 3 mg at bedtime, may repeat in middle of night x 1 3) Follow up in 6 months documented in this encounterOhiohealth Pickering[facility]07-15-2024 History of Present illness Narrative* Tasha Deutsch [...] Hiatal hernia History of esophagogastroduodenoscopy (EGD) 09/23/2014 [facility]: All normal HTN (hypertension) Hyperlipidemia, mixed Osteoarthritis Osteopenia PUD (peptic ulcer disease) 2014 Vitamin D deficiency PAST SURGICAL HISTORY Procedure Laterality Date BUNIONECTOMY, LAPIDUS-TYPE Left 03/30/2007 Dr. Devin DE DIOS, LAPIDUS-TYPE Right 03/30/2008 Dr. Beltran CATARACT EXTRACTION W/ INTRAOCULAR LENS IMPLANT HX Left 03/31/2003 Dr. Sosa [facility]COPY [facility]23[facility] [facility], [facility] COLONOSCOPY FLX DX [...] Tape (Rosins), Bactrim [Sulfamethoxazole-Trimethoprim], Macrobid [NitrofurantoinMonohyd/M-Cryst], and Gjjkdig-Gop-Vku Reductase Inhibitors MEDICATIONS Current Outpatient Medications Medication [...] Brother age 76 other (CVA) Brother other (ART LIBRARIAN shunt) Brother Hypertension Sister Diabetes Sister age [...] if needed 7. Stress incontinence - ICD9: [id number], ICD10: N39.3 Wears pads Discussed treatment plan and patient voices understanding. Patient's questions answered appropriately. Medications and potential side effects were discussed and patient voices understanding. Return to the office as scheduled or as needed for worsening/no improvement. Tasha Deutsch APRN.DIRECTOR HR COMMUNICATIONS documented in this encounterOhiohealth Pickerington [facility]06-14-2024 History of Present illness Narrative* Sudheer Olguin APRN.NICO - 09/26/2023 3:43 PM EDT Images from the original note were not included. Subjective HPI HPI Behzad Hay is a 83 year old female who presents today for CC of left great toe infection. This started 1 week ago. Has tried otc medication for relief. Symptoms are worsened by nothing. Denies injury. 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 .Patient presents with: Ingrown Toenail: L great toe redness, swelling, painful, was seeping blood this am x 1 week Has appt with Felicitas baker [id number] October 21 PAST MEDICAL HISTORY Diagnosis Date Abnormal CT of the abdomen 01/24/2014 localized perihepatic fluid indeterminate, 4mm density too small for ID, fusiforma sortic ectasia Anemia Arthritis Cerebral degeneration (HCC) Collagenous colitis Degenerative lumbar disc Dyslipidemia GERD (gastroesophageal reflux disease) H/O colonoscopy 09/23/2014 small internal hemorrhoids otherwise WNL. No further surveillance recommended Hiatal hernia History of esophagogastroduodenoscopy (EGD) 09/23/2014 [facility]: All normal HTN (hypertension) Hyperlipidemia, mixed Osteoarthritis [...] Tape (Rosins), Bactrim [Sulfamethoxazole-Trimethoprim], Macrobid [NitrofurantoinMonohyd/M-Cryst], and Xxmlpws-Lip-Lpe Reductase Inhibitors MEDICATIONS estradiol (ESTRACE) 0.01 % [...] Brother age 76 other (CVA) Brother other (ART LIBRARIAN shunt) Brother Hypertension Sister Diabetes Sister age [...] MUPIROCIN 2 % TOPICAL OINTMENT Sudheer Olguin APRN.DIRECTOR HR COMMUNICATIONS documented in this encounterOhiohealth Pickering[facility]05-06-2024 History of Present illness Narrative* Tamia Quezada PA-C - 08/18/2023 11:44 AM EDTAssociated Order(s): Large Joint Arthro/Inj: L knee joint Post-Procedure Diagnose(s): Primary osteoarthritis of left knee Large Joint Arthro/Inj: L knee joint Informed Consent Consent Obtained: Verbal [place] Protocol A moment to CARE was completed. [...] Euflexxa injection into left knee. LOT # [id number] EXP 03/14/2024 Aida Narayanan MA documented in this encounterOhiohealth Pickerington [facility] Hospital05-06-2024 Nurse Note* Chel Nunez RN - 08/18/2023 11:22 AM EDT AMB ROOMING INTAKE FLOWSHEET DATA Pain Pain Level: 1 Pain Location: Knee-Left Description: Aching Duration Amount of Time: 1 Duration Units: Weeks Frequency: Intermittent Intervention/Comfort measure: Reposition, Relaxation, Medication Patient presents with: Left Knee - Follow Up, Injections Patient here for 3rd Euflexxa injection. LOT # [id number] EXP 03-14-2024 Chel Nunez RN [facility]05-06-[facility]24 Nurse Note* Chel Nunez RN - 08/18/2023 11:22 AM EDT [facility] ROOMING INTAKE FLOWSHEET DATA Pain Pain Level: 1 Pain Location: Knee-Left Description: Aching Duration Amount of Time: 1 Duration Units: Weeks Frequency: Intermittent Intervention/Comfort measure: Reposition, Relaxation, Medication Patient presents with: Left Knee - Follow Up, Injections Patient here for 3rd Euflexxa injection. LOT # [id number] 03-14-2024 Chel Nunez RN documented in this encounterOhiohealth Pickerington [facility]05-03-2024 Instructions* Patient Instructions* Tasha Deutsch APRN.FIELD SEISMOLOGIST - 08/15/2023 10:21 AM EDT 1) - Check BMP 2) - Consider melatonin 3 mg for sleep if needed, could repeat once in a night if needed 3) - Follow up with Adal in October as scheduled documented in this encounterOhiohealth Pickerington [facility]05-03-2024 History of Present illness Narrative* Tasha Deutsch [...] Hiatal hernia History of esophagogastroduodenoscopy (EGD) 09/23/2014 [facility]: All normal HTN (hypertension) Hyperlipidemia, mixed Osteoarthritis Osteopenia PUD (peptic ulcer disease) 2014 Vitamin D deficiency PAST SURGICAL HISTORY Procedure Laterality Date BUNIONECTOMY, LAPIDUS-TYPE Left 03/30/2007 Dr. Beltran BUNIONECTOMY, LAPIDUS-TYPE Right 03/30/2008 Dr. Beltran CATARACT EXTRACTION W/ INTRAOCULAR LENS IMPLANT HX Left 03/31/2003 Dr. Sosa COLONOSCOPY 09/23/[address] Addy Enriquez [place] internal hemorrhoids, otherwise WNL COLONOSCOPY FLX DX [...] Tape (Rosins), Bactrim [Sulfamethoxazole-Trimethoprim], Macrobid [NitrofurantoinMonohyd/M-Cryst], and Bggsmfu-Rfo-Zdx Reductase Inhibitors MEDICATIONS Current Outpatient Medications Medication [...] Brother age 76 other (CVA) Brother other (ART LIBRARIAN shunt) Brother Hypertension Sister Diabetes Sister age [...] agrees with the plan. documented in this encounterOhiohealth [facility]ering[facility]04-29-2024 History of Present illness Narrative* Tamia Quezada PA-C - 08/11/2023 1:24 PM EDTAssociated Order(s): Large Joint Arthro/Inj: L knee joint Post-Procedure Diagnose(s): Chronic pain of left knee Large Joint Arthro/Inj: L knee joint Informed Consent Consent Obtained: Verbal [place] Protocol A moment to CARE was completed. [...] # 2 into left knee LOT # [id number] EXP 03/14/2024 Aida Narayanan MA documented in this encounterOhiohealth Pickering[facility]04-22-2024 History of Present illness Narrative* Tamia Quezada PA-C - 08/04/2023 11:36 AM EDTAssociated Order(s): Large Joint Arthro/Inj: L knee joint Post-Procedure Diagnose(s): Primary osteoarthritis of left knee; Chronic pain of left knee Large Joint Arthro/Inj: L knee joint Informed Consent Consent Obtained: Verbal [place] Protocol A moment to CARE was completed. [...] here for first Euflexxa injection LOT # [id number] EXP 03/09/2024 Chel Nunez RN documented in this encounterOhiohealth Pickering[facility]04-03-2024 History of Present illness Narrative* Moses Ross [...] Rash Bactrim [Sulfametho* Rash Macrobid [Nitrofura* Rash Acodofp-Mhg-Ume Red* Intolerance PAST MEDICAL HISTORY Diagnosis Date Abnormal CT of the abdomen 01/24/2014 localized perihepatic fluid indeterminate, 4mm density too small for ID, fusiforma sortic ectasia Anemia Arthritis Cerebral degeneration (HCC) Collagenous colitis Degenerative lumbar disc Dyslipidemia GERD (gastroesophageal reflux disease) H/O colonoscopy 09/23/2014 small internal hemorrhoids otherwise WNL. No further surveillance recommended Hiatal hernia History of esophagogastroduodenoscopy (EGD) 09/23/2014 [facility]: All normal HTN (hypertension) Hyperlipidemia, mixed Osteoarthritis [...] Brother age 76 other (CVA) Brother other (ART LIBRARIAN shunt) Brother Hypertension Sister Diabetes Sister age [...] MICROSCOPIC Moses Ross MD documented in this encounterOhiohealth Pickering[facility]04-03-2024 Miscellaneous Notes* Telephone Encounter - Eleanor Joel [...] dizziness 6. : no Protocols used: Urinary Zryqzjtk-NTHIU-TL documented in this encounterOhiohealth Pickerington [facility] Hospital03-26-2024 History of Present illness Narrative* Hetal Gallardo, DO - 07/08/2023 9:54 AM EDT Images from the original note were not included. [facility] [place] DEPARTMENT OF VASCULAR SURGERY OUTPATIENT VISIT DATE July 08, 2023 OUTPATIENT VISIT TYPE CONSULTATION SERVICE DATE: 07/08/2023 SERVICE TIME: 9:54 AM PRIMARY CARE PHYSICIAN: Jose G Harrington PA-C REFERRING PROVIDER: Moses Ross [address] [facility] [address] Consult requested for an opinion regarding the [...] hernia History of es[facility]astroduoden[facility] ([facility]) [facility] All normal HTN (hypertension) Hyperlipidemia, mixed [...] Brother age 76 other (CVA) Brother other (ART LIBRARIAN shunt) Brother Hypertension Sister Diabetes Sister age [...] Rash Bactrim [Sulfametho* Rash Macrobid [Nitrofura* Rash Ntnyauo-Hbd-Sop Red* Intolerance REVIEW of SYSTEM: Constitutional: No [...] Stenosis: Dr. Ross Referral documented in this encounterOhiohealth Pickering[facility]03-13-2024 History of Present illness Narrative* Julee Becekr, JOE - 06/25/2023 10:20 AM EDT Images [...] Extension: Major limitation, Produces Lumbar R Side [place]: Moderate limitation Lumbar L Side [place]: Moderate limitation Lumbar R Side-[place]: Minimal limitation, [...] facilitated with verbal, visual, and tactile cueing. Self-Mcc Management: 1: encouraged pt. to continue HEP [...] 1058 Julee Becker PT documented in this encounterOhiohealth Pickering[facility]03-11-2024 History of Present illness Narrative* Tamia Quezada PA-C - 06/23/2023 10:27 AM EDTAssociated Order(s): Large Joint Arthro/Inj: L knee joint Post-Procedure Diagnose(s): Chronic pain of left knee; Primary osteoarthritis of left knee; Patellofemoral pain syndrome of left knee Tamia Quezada PA-C Department of Orthopaedics Orthopaedics [address] [place] [address] Dept: [phone] Dept June 23, 2023 CHIEF COMPLAINT: Established [...] knee joint Informed Consent Consent Obtained: Verbal [place] Protocol A moment to CARE was completed. [...] Severe patellofemoral osteoarthritis without acute osseous findings. Uniform Maker: STAN Transcribe Date/Time: Jun 23 2023 4:38P [...] are demineralized. Severe patellofemoral degenerative changes with nbrn-su-bvol articulation, subchondral cirrhosis and marginal osteophytes. Tibiofemoral [...] (Rosins), Bactrim [Sulfamethoxazole-Trimethoprim], Macrobid [Nitrofurantoin Monohyd/M-Cryst], and Ehdqazl-Nre-Dvu Reductase Inhibitors ROS: General (negative for fatigue, malaise, weight loss/gain) HEENT (negative for headache, earache, recent vision changes, sinus pain, sore throat) Respiratory (no recent shortness of breath, hemoptysis) CV (negative for chest tightness, palpitations) Musculoskeletal (see HPI) Psych (no depression, anxiety) This note was partially generated using XbyMe voice recognition system, and there may be [...] like an injection today. documented in this encounterOhiohealth Pickering[facility]03-11-2024 History of Present illness Narrative* Darlyn Rodgers [...] PATIENT PRESENTS WITH AN IMPLANTABLE OR ATTACHED ASSOCIATE ACCOUNT EXECUTIVE: No RADIOLOGY DEPARTMENT: General X-ray: Exam(s) Completed: Lower Extremity X- Ray(s): Knee, AP / Lat / Tunne / Merchant Left PERIPHERAL IV DATA: Not applicable SIGNED BY: RT Edie(R) June 23, 2023 9:46 AM documented in this encounterOhiohealth Pickerington [facility] Hospital03-06-2024 History of Present illness Narrative* Julee Becker, PT - 06/18/2023 10:46 AM EST Program_ID:[id number] Access Code: [email or web address] URL: [email or web address] Date: 06-18-2023 Prepared By: Julee Becker Program Notes Exercises - Seated Abdominal Press into Cambodian Ball - 1 x daily - 7 [...] seated TA activation 2x10 2: *Access Code: [email or web address] URL: [email or web address] Date: 06/18/2023 Prepared by: Julee Lyons Exercises - Seated Abdominal Press into Cambodian Ball - 1 x daily - 7 [...] 1106 Julee Becker PT documented in this encounterOhiohealth Pickerington [facility]02-27-2024 Miscellaneous Notes* Telephone Encounter - Marisa Campos RN - 06/10/2023 11:02 AM EST Patient notified of results. Patient verbalizes understanding. Marisa Campos RN * Telephone Encounter - Winsome Butler Ma - 06/10/2023 9:46 AM EST Left message for patient to return call. Winsome uBtler Ma * Telephone Encounter - Winsome Butler Ma - 06/09/2023 5:19 PM EST ----- Message from Tasha Deutsch APRN.FIELD SEISMOLOGIST sent at 06/09/2023 4:52 PM EST ----- Please let pt. Know that mild anemia is stable. Iron level and iron stores are normal. documented in this encounterOhiohealth Pickering[facility]02-21-2024 History of Present illness Narrative* Julee Becker [...] Julee Becker, PT, DPT documented in this encounterOhiohealth Pickerington [facility] Hospital02-19-2024 Instructions* Patient Instructions* Tasha Deutsch APRN.CNS - 06/02/2023 4:51 PM EST 1) Increase lisinopril to 2- 10mg tablets daily 2) Get labs done in 1 week 3) Schedule carotid ultrasound 4) See Adal in October as scheduled documented in this encounterOhiohealth Pickerington [facility]02-19-2024 History of Present illness Narrative* Tasha Deutsch [...] hernia History of esophag[facility]astroduoden[facility] (EGD) [facility] All normal HTN (hypertension) Hyperlipidemia, mixed [...] Tape (Rosins), Bactrim [Sulfamethoxazole-Trimethoprim], Macrobid [NitrofurantoinMonohyd/M-Cryst], and Vhjybkd-Fgu-Jeq Reductase Inhibitors MEDICATIONS Current Outpatient Medications Medication [...] Brother age 76 other (CVA) Brother other (ART LIBRARIAN shunt) Brother Hypertension Sister Diabetes Sister age [...] grossly intact., cranial nerves III-XII intact, no payckj-ys-sgek ataxia. LABS: CT of head normal ASSESSMENT/PLAN: [...] agrees with the plan. documented in this encounterOhiohealth Pickerington [facility]02-14-2024 Miscellaneous Notes* Telephone Encounter - Breann Schmitz [...] ultrasound. Howis she feeling? documented in this encounterOhiohealth Pickerington [facility] Hospital02-14-2024 History of Present illness Narrative* Julee Becker, PT - 05/28/2023 10:25 AM EST BP: 191/97 HR: 86 SpO2: 100% Pt. Reports feeling dizzy Friday and contacting PCP. Pt. Advised to wean from metroprolol. Pt. Continued to have dizziness and vomited 2x due to dizziness. Pt. Seen by AUTOMOBILE MECHANIC HELPER 05/26/23. Head CT negative and Carotid US ordered per chart. Reports that she has not taken her BP medication yet today or BP measurement yet today. Denies symptoms of light headedness or dizziness upon arrival. Pt. Advised by PT to continue medications as instructed by AUTOMOBILE MECHANIC HELPER and PCP. Schedule and attend tests. Hold PT today due to high BP at rest. Plan was to complete balance activities today. Encouraged pt. To monitor her BP and go to ED should she become dizzy or vomit. Referring provider notified. Julee Becker PT, DPT documented in this encounterOhiohealth Pickerington [facility]02-13-2024 History of Present illness Narrative* Corinne Arreola [...] PATIENT PRESENTS WITH AN IMPLANTABLE OR ATTACHED ASSOCIATE ACCOUNT EXECUTIVE: No RADIOLOGY DEPARTMENT: CT; Exam(s) Completed: Brain PERIPHERAL IV DATA: Not applicable SIGNED BY: RT Nilo(R) May 27, 2023 2:40 PM documented in this encounterOhiohealth Pickering[facility]02-12-2024 Miscellaneous Notes* Telephone Encounter - Breann Schmitz [...] 24 hours. Scheduled same day appt with AUTOMOBILE MECHANIC HELPER, but advised to ER if has another [...] : Post menopause. Protocols used: Dizziness - Cibhtrgwqybnywe-ZDFER-JS documented in this encounterOhiohealth Pickerington [facility] Hospital02-12-2024 Miscellaneous Notes* Telephone Encounter - Winsome Butler Ma - 05/26/2023 3:45 PM EST Detailed message for patient left on voicemail to schedule either tomorrow at visit or call back. Phone number left. Winsome Butler Ma * Telephone Encounter - Breann Schmitz APRN.CNP - 05/26/2023 3:10 PM EST Please remind patient to schedule carotid duplex. Breann Schmitz APRN.CNP documented in this encounterOhiohealth Pickerington [facility] Hospital02-12-2024 Instructions* Patient Instructions* Breann Schmitz APRN.CNP - 05/26/2023 2:06 PM EST Start the lisinopril daily. Schedule the CT of the head. Schedule the carotid ultrasound. Recheck in 1 week. documented in this encounterOhiohealth Pickerington [facility] Hospital02-12-2024 History of Present illness Narrative* Breann Schmitz APRN.CNP - 05/26/2023 1:15 PM EST This is a 83 year old female who presents today with: Patient presents with: Dizziness HISTORY OF PRESENT ILLNESS: Behzad Hya is a 83 year old female. Patient [...] hernia History of esophag[facility]astroduoden[facility] (EGD) [facility] All normal HTN (hypertension) Hyperlipidemia, mixed Osteoarthritis Osteopenia PUD (peptic ulcer disease) 2014 Vitamin D deficiency PAST SURGICAL HISTORY Procedure Laterality Date BUNIONECTOMY, LAPIDUS-TYPE Left 03/30/2007 Dr. Devin LOPEZCTOMY, LAPIDUS-TYPE Right 03/30/2008 Dr. Beltran CATARACT EXTRACTION W/ INTRAOCULAR LENS IMPLANT HX Left 03/31/2003 Dr. Sosa COLONOSCOPY 09/23/[address] Addy Enriquez [place] internal hemorrhoids, otherwise WNL COLONOSCOPY FLX DX [...] Tape (Rosins), Bactrim [Sulfamethoxazole-Trimethoprim], Macrobid [NitrofurantoinMonohyd/M-Cryst], and Dchnunc-Ifg-Uzp Reductase Inhibitors MEDICATIONS Current Outpatient Medications Medication [...] Brother age 76 other (CVA) Brother other (ART LIBRARIAN shunt) Brother Hypertension Sister Diabetes Sister age [...] as needed for worsening/no improvement. Breann Schmitz APRN.DIRECTOR HR COMMUNICATIONS documented in this encounterOhiohealth Pickerington [facility] Hospital02-07-2024 History of Present illness Narrative* Julee Becker, PT - 05/21/2023 10:48 AM EST Program_ID:[id number] Access Code: [email or web address] URL: [email or web address] Date: 05-21-2023 Prepared By: Julee Becker Program [...] Patient to be seen for Therapeutic activities (05388), Manual therapy (99699), Self-custodial management (42858), Gait Training (98091), Therapeutic exercise (81696), Neuromuscular re-education (91282) PLAN FOR NEXT VISIT: address back and [...] R shoulder flexion 1x 2: *Access Code: [email or web address] URL: [email or web address] Date: 05/21/2023 Prepared by: Julee Lyons Exercises [...] and function . Patient education as noted. Self-Mcc Management: 1: discussed directional preference and flexion [...] 1107 Julee Becker PT documented in this [facility]12-18-[facility]23 History of Present illness Narrative* Mariella Newell [...] 31, 2023 11:45 AM documented in this encounterOhiohealth Pickerington [facility] Hospital09-18-2023 History of Present illness Narrative* Sandra Horne MD - 12/30/2022 3:25 PM EDT Images from the original note were not included. Sandra Horne MD Interventional Cardiology [facility] [address] [place], [place] [address] [phone] Chief Complaint Patient presents with: Consult HISTORY OF PRESENT ILLNESS: Ms. Hay is a 82 year old female in my office today for assessment and management of paroxysmal atrial fibrillation patient had no cardiac history in the past she was seen at [facility] emergency department because of atrial fibrillation that [...] Hiatal hernia History of esophagogastroduodenoscopy (EGD) 09/23/2014 [facility]: All normal HTN (hypertension) Hyperlipidemia, [...] vs metastatic disease; EGD 09/23/2014 Dr. Greenwalt Malone Normal esophagus, z-line, stomach and duodenum ESOPHAGOGASTRODUODENOSCOPY [...] Brother age 76 other (CVA) Brother other (ART LIBRARIAN shunt) Brother Hypertension Sister Diabetes Sister age 66 (sepsis) Social History Tobacco Use Smoking status: Never Smokeless tobacco: Never Vaping Use Vaping Use: Never used Substance Use Topics Alcohol use: No Drug use: No ALLERGIES Allergen Reactions Adhesive Tape (Tati* Rash Bactrim [Sulfametho* Rash Macrobid [Nitrofura* Rash Ciwmjtx-Msg-Lqj Red* Intolerance Medications: Current Outpatient Medications Medication [...] to correct any errors. documented in this encounterOhiohealth Pickering[facility]07-13-2023 Instructions* Patient Instructions* Jose G Harrington PA-C [...] anything that really hurts. documented in this encounterOhiohealth Pickerington [facility] Hospital07-13-2023 History of Present illness Narrative* Jose G [...] Brother age 76 other (CVA) Brother other (ART LIBRARIAN shunt) Brother Hypertension Sister Diabetes Sister age [...] Hiatal hernia History of esophagogastroduodenoscopy (EGD) 09/23/2014 [facility]: All normal HTN (hypertension) Hyperlipidemia, [...] Finger Chronic Renal Insufficiency, Stage 3 (Moderate) ([facility]) Vitamin D Deficiency Ddd (Degenerative Disc Disease), Cervical Primary Osteoarthritis of Right Hip Collagenous Colitis Ibs (Irritable Bowel Syndrome) Hiatal Hernia Fall From Standing Rotator Cuff Tear Arthropathy, Left Paroxysmal Atrial Fibrillation ([facility]) Current Outpatient Medications Medication Sig Dispense Refill [...] Jose G Harrington PA-C documented in this encounterOhiohealth Pickerington [facility] Hospital06-29-2023 History of Present illness Narrative* Jose G [...] cervical Primary osteoarthritis of right hip Taking Danish Organic Herbal Tea which she feels is [...] Brother age 76 other (CVA) Brother other (ART LIBRARIAN shunt) Brother Hypertension Sister Diabetes Sister age [...] hernia History of esophagogastroduodenoscopy (EGD) 09/23/2014 [facility]: All normal HTN (hypertension) Hyperlipidemia, mixed Osteoarthritis Osteopenia PUD (peptic ulcer disease) 2013 Vitamin D deficiency PAST SURGICAL HISTORY Procedure Laterality Date BUNIONECTOMY, LAPIDUS-TYPE Left 03/30/2007 Dr. Devin LOPEZCTOMY, LAPIDUS-TYPE Right 03/30/2008 Dr. Beltran CATARACT EXTRACTION W/ INTRAOCULAR LENS IMPLANT HX Left 03/31/2003 Dr. Sosa COLONOSCOPY 09/23/[address] Addy Enriquez, [place] internal hemorrhoids, otherwise WNL COLONOSCOPY FLX DX [...] Jose G Harrington PA-C documented in this encounterOhiohealth Pickerington [facility] Hospital06-29-2023 Instructions* Patient Instructions* Jose G Harrington PA-C [...] your usual activities immediately. documented in this encounterOhiohealth Pickerington [facility] Hospital12-29-2022 Procedure note* DIMA Ricardo - 04/11/2022 10:30 AM EST EVENT MONITOR DISPOSABLE PATCH INSTRUCTIONS Patient Name: Behzad Hay [facility] Number: [id number] Skin prepped and cleansed with alcohol Patch secured to prepped area Monitor Activated Serial #: [id number] Patient Instructed: Prescribed order timeframe Bathing guidelines Usage of event button and diary documentation Return of monitor at the end of prescribed order Call with problems [phone] or [phone]. [phone] Patient expresses a good understanding of instructions DIMA Ricardo documented in this encounterOhiohealth Pickerington [facility]12-29-2022 History of Present illness Narrative* Jose G Harrington PA-C - 04/11/2022 9:20 AM EST 82 year old female with c/o ER/ hospital follow up 04/07/2022 presented to [facility] emergency department after a fall in which [...] normal limits, CMP within normal limits except [id number], EGFR 56. Normal troponin 116, TSH normal [...] Brother age 76 other (CVA) Brother other (ART LIBRARIAN shunt) Brother Hypertension Sister Diabetes Sister age [...] Hiatal hernia History of esophagogastroduodenoscopy (EGD) 09/23/2014 [facility]: All normal HTN (hypertension) Hyperlipidemia, mixed Osteoarthritis Osteopenia PUD (peptic ulcer disease) 2013 Vitamin D deficiency PAST SURGICAL HISTORY Procedure Laterality Date BUNIONECTOMY, LAPIDUS-TYPE Left 03/30/2007 Dr. Devin LOPEZCTOMY, LAPIDUS-TYPE Right 03/30/2008 Dr. Beltran CATARACT EXTRACTION W/ INTRAOCULAR LENS IMPLANT HX Left 03/31/2003 Dr. Sosa COLONOSCOP W/ OR W/O [facility] SPEC 09/01/2020 Dr. Whitehead COLONOSCOPY 09/23/2014 colonoscopy [...] Finger Chronic Renal Insufficiency, Stage 3 (Moderate) (Formerly [facility]) Vitamin D Deficiency Ddd (Degenerative Disc Disease), [...] Jose G Harrington PA-C documented in this encounter[facility] Instructions* Patient Instructions* Jose G Harrington PA-C - 10/29/2021 11:59 AM EDT Triamcinolone 0.1% cream 2-3 times a x 5-7 days: if not improving or flares on discontinuation, letme know. documented in this encounterOhio[facility]07-18-[facility]22 History of Present illness Narrative* Jose G [...] been chemical rose. She has been using [id number] hydrocortisone and also triamcinolone from her prior [...] adhesive capsulitis or mild capsular sprain. 06/07/2021 [facility] consult: rotator cuff tear 06/04/2021 Lost balance [...] Brother age 76 other (CVA) Brother other (ART LIBRARIAN shunt) Brother Hypertension Sister Diabetes Sister age [...] Hiatal hernia History of esophagogastroduodenoscopy (EGD) 09/23/2014 [facility]: All normal HTN (hypertension) Hyperlipidemia, mixed Osteoarthritis Osteopenia PUD (peptic ulcer disease) 2013 Vitamin D deficiency PAST SURGICAL HISTORY Procedure Laterality Date BUNIONECTOMY, LAPIDUS-TYPE Left 03/30/2007 Dr. Devin CARLIONECTOMY, LAPIDUS-TYPE Right 03/30/2008 Dr. Beltran CATARACT EXTRACTION W/ INTRAOCULAR LENS IMPLANT HX Left 03/31/2003 Dr. Sosa COLONOSCOP W/ OR W/O [facility] SPEC 09/01/2020 Dr. Whitehead COLONOSCOPY 09/23/2014 colonoscopy [...] 4. Chronic renal insufficiency, stage 3 (moderate) ([facility]) - ICD9: 585.3, ICD10: N18.30 Stable 5. Vitamin D deficiency - ICD9: 268.9, ICD10: E55.9 Improved Follow-up in 6 months or as needed. Jose G Harrington PA-C documented in this encounterOhio[facility]07-13-2022 History of Present illness Narrative* Jazmyne Bernabe RN - 10/24/2021 3:28 PM EDT [facility] Enrollment Provider Action/FYI: Patient declined home monitoring of any type - stated, "I just call the doctor when I don't feel well." Patient referred by: [facility] Gopal Contact made with patient: Yes - Patient identified by name and . Discussed care with patient Chu this is Jazmyne Bernabe RN and I am calling from Jose G Harrington PA-C office at the [facility]. I am a RN Regulatory Affairs Specialist with our [facility] Chronic Disease Management program. [...] few questions once a week through your [employer] account. It will automatically show up for [...] Provider Action/FYI: Left message Patient referred by: [facility] Gopal Contact made with patient: No - Left Message: Hi my name is Jazmyne Bernabe RN and I am calling from the [facility] on behalf of your physician's emergency medicine physician assistant, Jose G Harrington PA-C. We are excited to share with you a new way to help you manage your health. Please call me back at [phone] between the hours of 8am-4pm Friday-Friday. You will receive another phone call from me within the next two business days. I hope you can take the time to speak with me." (Keep encounter open and attempt 2nd outreach in two business days from today) END OUTREACH documented in this encounterOhiohealth [facility]04-21-2022 Miscellaneous Notes* Telephone Encounter - Ariadna Head [...] refill in other encounter. documented in this encounterOhiohealth [facility]04-20-2022 Miscellaneous Notes* Telephone Encounter - Jazmyne Oviedo Pss - 08/01/2021 8:52 AM EDT Pharmacy verified in [facility] Patient has been identified by name and [...] advise. 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 documented as of this encounter (statuses as of 10/24/2021) [place] [address] History of Past illness Narrative* Problem Noted Date Resolved Date 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 documented as of this encounter (statuses as of 10/30/2021) [place] [address] History of Past illness Narrative* Problem Noted Date Resolved Date 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 documented as of this encounter (statuses as of 04/17/2022) [place] [address] History of Past illness Narrative* Problem Noted Date Resolved Date 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 documented as of this encounter (statuses as of 10/13/2022) [place] [address] History of Past illness Narrative* Problem Noted Date Diagnosed Date Resolved Date 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 documented as of this encounter (statuses as of 10/24/2022) [place] [address] History of Past illness Narrative* Problem Noted Date Diagnosed Date Resolved Date 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 documented as of this encounter (statuses as of 12/31/2022) [place] [address] History of Past illness Narrative* Problem Noted Date Diagnosed Date Resolved Date 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 07/06/2018 documented as of this encounter (statuses as of 05/21/2023) [place] [address] History of Past illness Narrative* Problem Noted Date Diagnosed Date Resolved Date 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 documented as of this encounter (statuses as of 05/26/2023) [place] [address] History of Past illness Narrative* Problem Noted Date Diagnosed Date Resolved Date 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 documented as of this encounter (statuses as of 05/26/2023) [place] [address] History of Past illness Narrative* Problem Noted Date Diagnosed Date Resolved Date 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 07/06/2018 documented as of this encounter (statuses as of 05/27/2023) [place] [address] History of Past illness Narrative* Problem Noted Date Diagnosed Date Resolved Date 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 07/06/2018 documented as of this encounter (statuses as of 05/28/2023) [place] [address] History of Past illness Narrative* Problem Noted Date Diagnosed Date Resolved Date 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 07/06/2018 documented as of this encounter (statuses as of 05/28/2023) [place] [address] History of Past illness Narrative* Problem Noted Date Diagnosed Date Resolved Date 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 07/06/2018 documented as of this encounter (statuses as of 05/28/2023) [place] [address] History of Past illness Narrative* Problem Noted Date Diagnosed Date Resolved Date 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 07/06/2018 documented as of this encounter (statuses as of 06/02/2023) [place] [address] History of Past illness Narrative* Problem Noted Date Diagnosed Date Resolved Date 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 07/06/2018 documented as of this encounter (statuses as of 06/04/2023) [place] [address] History of Past illness Narrative* Problem Noted Date Diagnosed Date Resolved Date 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 documented as of this encounter (statuses as of 06/10/2023) [place] [address] History of Past illness Narrative* Problem Noted Date Diagnosed Date Resolved Date 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 07/06/2018 documented as of this encounter (statuses as of 06/18/2023) [place] [address] History of Past illness Narrative* Problem Noted Date Diagnosed Date Resolved Date 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 07/06/2018 documented as of this encounter (statuses as of 06/24/2023) [address]16-2018 History of Past illness Narrative* Problem Noted Date Diagnosed Date Resolved Date 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 07/06/2018 documented as of this encounter (statuses as of 06/24/2023) [address]16[address]2018 History of Past illness Narrative* Problem Noted Date Diagnosed Date Resolved Date 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 documented as of this encounter (statuses as of 06/25/2023) [address]16[address]2018 History of Past illness Narrative* Problem Noted Date Diagnosed Date Resolved Date 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 documented as of this encounter (statuses as of 07/08/2023) [address]16[address]2018 History of Past illness Narrative* Problem Noted Date Diagnosed Date Resolved Date 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 07/06/2018 documented as of this encounter (statuses as of 07/16/2023) [address]16[address] History of Past illness Narrative* Problem Noted Date Diagnosed Date Resolved Date 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 [...] of both shoulders. 10/18/24 1233<Electronically signed by Mihia Woods DO> Cosigner Signature (if applicable): cc: [...] brought here for further evaluation management. [facility] Medical History Dyslipidemia HTN (hypertension) Paroxysmal atrial [...] (From Allergy Rash Verified 10/12/24 09:44 Macrobid) Llztmib-RKD-JjW Reductase AdvReac Unknown Unknown Verified 10/12/24 09:44 [...] also on Eliquis. Will order the reversal [facility] physician Dr. Trujillo who states that the patient can fly down to [facility] the accepting ER physician is Dr. Bautista. [...] 11:16 am with readback verification. Reading Location: [facility] Head/Neck CTA 10/18/24 11:03 IMPRESSION: No acute abnormality is seen. Stable examination. Reading Location: [facility] Discharge Plan Triage Chief Complaint: [...] GARFIELD [Primary Care Provider] - Print Language: Maori Disposition Disposition: DC/Tx to Another Type of HCF What to do if you have Problems For any increased pain, shortness of breath, bleeding, nausea or vomiting, chestpain, or any unexpected problems, contact your Primary Care Provider. Call [facility] ([phone]) or report to the closest Emergency Room. Call 911 if necessary. 10/18/24 3022 <Electronically signed by Mihai Woods DO> Cosigner Signature (if applicable): CC: GARFIELD Deutsch ~ Signed [facility] Work Phone: Evaluation noteThere may be information available, but it has not been provided by the sender.[facility] Work Phone: Evaluation note* Diagnosis Iron deficiency anemia due to chronic blood loss Iron deficiency anemia secondary to blood loss (chronic) [facility]* Diagnosis Chronic renal insufficiency, stage 3 (moderate) (HCC)- Primary Iron deficiency anemia due to chronic blood loss Iron deficiency anemia secondary to blood loss (chronic) documented in this encounter [facility]* Diagnosis Irritant dermatitis- Primary Contact dermatitis and other eczema, due to unspecified cause Traumatic tear of left rotator cuff, sequela Collagenous colitis Other and unspecified noninfectious gastroenteritis and colitis Chronic renal insufficiency, stage 3 (moderate) (HCC) Vitamin D deficiency Unspecified vitamin D deficiency documented in this encounter [facility] noteNo assessment information availableWOhio State Health System Work Phone: Evaluation note* Diagnosis Paroxysmal atrial fibrillation (HCC)- Primary Atrial fibrillation Chronic renal insufficiency, stage 3 (moderate) (HCC) Collagenous colitis Other and unspecified noninfectious gastroenteritis and colitis Fall from standing, initial encounter Vitamin D deficiency Unspecified vitamin D deficiency Iron deficiency anemia, unspecified iron deficiency anemia type documented in this encounter [facility]* Diagnosis Paroxysmal atrial fibrillation (HCC)- Primary [...] Asymptomatic postmenopausal status documented [facility] this encounter [facility]* Diagnosis Impacted cerumen of right ear- Primary Impacted cerumen Neck pain on right side Cervicalgia documented in this encounter [facility]* Diagnosis Paroxysmal atrial fibrillation (HCC)- Primary Atrial fibrillation Primary hypertension Unspecified essential hypertension documented [facility] this encounter [facility]* Diagnosis Acute pain of right shoulder- Primary Severe pain of left shoulder Cervicalgia [facility]* Diagnosis Primary hypertension- Primary Unspecified essential hypertension Transient cerebral ischemia, unspecified type Dizziness Dizziness and giddiness Right carotid bruit Other symptoms involving cardiovascular system [facility] Diagnosis Transient cerebral ischemia, unspecified type documented [facility] this encounter [facility]* Diagnosis DDD (degenerative disc disease), cervical- Primary Degeneration of cervical intervertebral disc Primary hypertension Unspecified essential hypertension Right carotid bruit Other symptoms involving cardiovascular system Vitamin D deficiency Unspecified vitamin D deficiency Vitamin B12 deficiency Other B-complex deficiencies Dizziness Dizziness and giddiness documented in this encounter [facility]* Diagnosis Acute pain of right shoulder- Primary Severe pain of left shoulder Cervicalgia documented [facility] this encounter [facility]* Diagnosis Acute pain of right shoulder- Primary Severe pain of left shoulder Cervicalgia documented [facility] this encounter [facility]* Diagnosis Pain Generalized pain documented in this encounter [facility]* Diagnosis Chronic pain of left knee- Primary Pain in joint, lower leg Primary osteoarthritis of left knee Primary localized osteoarthrosis, lower leg Patellofemoral pain syndrome of left knee documented in this encounter [facility]* Diagnosis Acute pain of right shoulder- Primary Severe pain of left shoulder Cervicalgia [facility]* Diagnosis Occlusion and stenosis of unspecified carotid artery- Primary Bilateral carotid artery stenosis Occlusion and stenosis of carotid artery without mention of cerebral infarction Fibromuscular dysplasia (HCC) Other specified disorders of arteries and arterioles documented in this encounter [facility]* Diagnosis Acute right-sided low back pain without sciatica- Primary Primary hypertension Unspecified essential hypertension Urinary tract infection with hematuria, site unspecified [facility]* Diagnosis Chronic pain of left knee- Primary Pain in joint, lower leg Primary osteoarthritis of left knee Primary localized osteoarthrosis, lower leg documented in this encounter [facility]* Diagnosis Chronic pain of left knee- Primary Pain in joint, lower leg documented in this encounter [facility]* Diagnosis Headache, unspecified headache type- Primary Primary hypertension Unspecified essential hypertension Paroxysmal atrial fibrillation (HCC) Atrial fibrillation Dysuria Primary insomnia Persistent disorder of initiating or maintaining sleep documented [facility] this encounter [facility]* Diagnosis Primary osteoarthritis of left knee- Primary Primary localized osteoarthrosis, lower leg documented [facility]* Diagnosis Acute paronychia of toe of left foot- Primary documented in this encounter [facility]* Diagnosis Paroxysmal atrial fibrillation (HCC)- Primary Atrial fibrillation DDD (degenerative disc disease), cervical Degeneration of cervical intervertebral disc Primary hypertension Unspecified essential hypertension Primary osteoarthritis of right hip Primary localized osteoarthrosis, pelvic region and thigh Chronic renal insufficiency, stage 3 (moderate) (HCC) Chronic insomnia Insomnia, unspecified Stress incontinence Female stress incontinence documented [facility] this encounter [facility]* Diagnosis PAD (peripheral artery disease) (HCC)- Primary Peripheral vascular disease, unspecified documented [facility] this encounter [facility]* Diagnosis Acute pain of right shoulder documented [facility] this [facility]* Diagnosis Left thigh pain Pain in limb [facility] Diagnosis Acute non-recurrent maxillary sinusitis- Primary Urinary urgency Urgency of urination documented [facility] this encounter [facility]* Diagnosis Collagenous colitis- Primary Other and [...] Female stress incontinence [facility]* Diagnosis Recurrent UTI (urinary tract infection)- Primary Urinary tract infection, site not specified documented [facility] this encounter [facility]* Diagnosis Primary hypertension Unspecified essential hypertension [facility]* Diagnosis Paroxysmal atrial fibrillation (HCC)- Primary Atrial fibrillation Cerebrovascular accident (CVA) due to occlusion of cerebral artery (HCC) documented [facility] this encounter [facility]* Diagnosis Paroxysmal atrial fibrillation (HCC)- Primary Atrial fibrillation 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 Recurrent UTI (urinary tract infection) Urinary tract infection, site not specified Primary hypertension Unspecified essential hypertension Chronic renal insufficiency, stage 3 (moderate) (HCC) documented in this encounter [facility]* Diagnosis Cerebral infrc due to embolism of unsp ant cerebral artery (HCC)- Primary documented [facility] encounter [facility]* Diagnosis Dysuria- Primary Confusion Unspecified psychosis Seasonal allergic rhinitis, unspecified trigger documented [facility] this encounter [facility]* Diagnosis Paroxysmal atrial fibrillation (HCC) Atrial fibrillation Cerebrovascular accident (CVA) due to occlusion of cerebral artery (HCC) documented [facility] this encounter [facility]* Diagnosis Basal ganglia hemorrhage- Primary Intracerebral hemorrhage Basal ganglia hemorrhage Intracerebral hemorrhage Cerebrovascular accident (CVA), unspecified mechanism Chronic atrial fibrillation Atrial fibrillation Dysphagia due to recent cerebrovascular accident (CVA) Atrial fibrillation, chronic Atrial fibrillation [facility] Diagnosis Acute CVA (cerebrovascular accident) (HCC)- Primary [facility] Additional Instructions Ice to scalp if you have any swelling. Hold your daily aspirin the next 2 days. Then you can restart it. Tylenol for pain. Return if severe headache, vomiting or not acting herself. Follow-up with your primary care provider for the diagnosis of new onset atrial fibrillation.[facility] Work Phone: InstructionsNo information available.[facility] [place] [facility] Work Phone: Patient's home Plan of care note* Visit Details Visit Type -SN SOC Discipline -Halfway Problems Problem Description Start Date Status Goals [...] Discuss all medications you are taking, even xjwg-qbs-bgelthv medicines, with your provider and pharmacist since [...] throughout certification period Completed SPO2 Description: Notify DIRECTOR HR COMMUNICATIONS J Suppan if pulse ox is <92% at rest. Problem:Physician Specific Parameters Goal:Patient to maintain parameters within physician-specified ranges throughout certification period Completed documented [facility] this encounter [facility] Plan of care note* Visit Details Visit Type -MANAGER PULMONARY EVAL Discipline -Speech Language Pathology Problems Problem Description Start Date Status Goals Interve ntions MANAGER PULMONARY Referral Disciplines: Skilled Services 09/22/2024 Active 1 [...] goal interventions scheduled/documente d in this visit MANAGER PULMONARY Learning Assessment Disciplines: MANAGER PULMONARY 09/23/2024 Active 1 goal linked to scheduled/document ed intervention 1 goal intervention scheduled/documente d in this visit MANAGER PULMONARY Language Reading Comprehension Disciplines: MANAGER PULMONARY 09/23/2024 Active 1 goal linked to scheduled/document ed intervention 1 goal intervention scheduled/documente d in this visit MANAGER PULMONARY Language Auditory Comprehension Disciplines: MANAGER PULMONARY 09/23/2024 Active 1 goal linked to scheduled/document ed intervention 1 goal intervention scheduled/documente d in this visit MANAGER PULMONARY Language Written Expression Disciplines: MANAGER PULMONARY 09/23/2024 Active 1 goal linked to scheduled/document ed intervention 1 goal intervention scheduled/documente d in this visit MANAGER PULMONARY Language Verbal Expression Disciplines: MANAGER PULMONARY 09/23/2024 Active 1 goal linked to scheduled/document ed intervention 1 goal intervention scheduled/documente d in this visit MANAGER PULMONARY Cognition Memory Disciplines: MANAGER PULMONARY 09/23/2024 Active 1 goal linked to scheduled/document ed intervention 1 goal intervention scheduled/documente d in this visit MANAGER PULMONARY Cognition Executive Function/Problem Solving/Reasonin g Disciplines: MANAGER PULMONARY 09/23/2024 Active 1 goal linked to scheduled/document ed intervention 1 goal intervention scheduled/documente d in this visit Goals Goal Associated Problem Outcome Goal Met? Visit Notes Patient will be referred to additional discipline as needed MANAGER PULMONARY Referral No Manage discharge planning Description: Patient/caregiver [...] educational instruction, to be achieved by 10/16/24. MANAGER PULMONARY Learning Assessment No Improve Reading Comprehension STG Description: Patient will demonstrate ability to read sentences for improved ability to function in the home and community as evidenced by pictures to sentences, comprehension questions and following written instructions with minimal cues in 80% accuracy. To be achieved by 10/16/24. MANAGER PULMONARY Language Reading Comprehension No Improve Auditory Comprehension STG Description: Patient/caregiver will improve comprehension of following multi-step directions, complex yes/no and open ended questions with minimal cues in 80% accuracy. To be achieved by 10/09/24. MANAGER PULMONARY Language Auditory Comprehension No Improve Written Expression STG Description: Patient will demonstrate ability to write at number and letter level for improved ability to function in the home and community as evidenced by copying and writing to dictation with moderate cues in 75% accuracy. To be achieved by 10/09/24. MANAGER PULMONARY Language Written Expression No Improve Verbal Expression STG Description: Patient/caregiver will produce sentence completion, description, confrontation naming and response naming to indicate thoughts, wants, needs and ideas with others, with minimal verbal and semantic cues with/in 80% accuracy. To be achieved by 10/09/24. MANAGER PULMONARY Language Verbal Expression No Improve Memory Skills STG Description: Patient/caregiver will verbalize/demonstrate awareness of memory strategies for short term memory information with minimal cues verbally and visually with/in 65% accuracy. To be achieved by 10/09/24. MANAGER PULMONARY Cognition Memory No Improve Problem Solving or Reasoning Description: Patient will complete problem solving or reasoning tasks related to basic mathematic skills generate solutions, sequencing and situation problem solving with minimal cueing with/in 70% accuracy. To be achieved by 10/09/24. MANAGER PULMONARY Cognition Executive Function/Problem Solving/Reasoning No Interventions Intervention Associated Problem/Goal Status Variance Visit Notes MANAGER PULMONARY evaluation and treatment Description: ST Referral eval and treat for Impaired verbal expression and memory and establish HEP. Problem:MANAGER PULMONARY Referral Goal:Patient will be referred to additional [...] of patient/caregiver knowledge deficit and educational instruction Problem:MANAGER PULMONARY Learning Assessment Goal:Patient/Caregive r Demonstrates understanding of education Completed Education methods include: verbal cues. Further education required to improve knowledge and compliance with functional cognitive, language skills and home exercise program. Reading Exercise Instruction Problem:MANAGER PULMONARY Language Reading Comprehension Goal:Improve Reading Comprehension STG Completed MANAGER PULMONARY instructed patient/caregiver to demonstrate reading comprehension of words and sentences with completing functional reading tasks, patient/caregiver completed with minimal cues in 62% accuracy. Auditory Comprehension Instruction Problem:MANAGER PULMONARY Language Auditory Comprehension Goal:Improve Auditory Comprehension STG Completed MANAGER PULMONARY instructed/cued patient to complete the following tasks to improve auditory comprehension skills identify pictures and complex yes/no with no cues in 68% accuracy. Written Expression Instruction Problem:MANAGER PULMONARY Language Written Expression Goal:Improve Written Expression STG Completed MANAGER PULMONARY instructed patient to write numbers and letters by writing to dictation with no cues in 20% accuracy. Verbal Expression Problem:MANAGER PULMONARY Language Verbal Expression Goal:Improve Verbal Expression STG Completed MANAGER PULMONARY instructed patient to produce confrontation naming and response naming to indicate thoughts, wants, needs and ideas with others, with no verbal and semantic cues with/in 52% accuracy. Memory Strategy Education Memory Exercises and Techniques Problem:MANAGER PULMONARY Cognition Memory Goal:Improve Memory Skills STG Completed Instructed patient/caregiver on use of memory strategies repetition to improve ability to recall short term memory tasks patient completed with no cueing with/in 10% accuracy. Problem Solving Reasoning Problem:MANAGER PULMONARY Cognition Executive Function/Problem Solving/Reasoning Goal:Improve Problem Solving or Reasoning Completed Instructed patient on exercises and tasks to improve planning and self-monitoring skills for completion of tasks in home environment: basic mathematic skills generate solutions and sequencing, patient completed with no cueing with/in 10% accuracy. documented in this encounter [facility]'s home Plan of care note* Visit Details [...] in order to resume walking around the [address] with her friends , to be [...] instructed on instructed on when to call [id number] (balance, eyes, face, arms, speech, time). Instruct [...] home exercise program. documented in this encounter [facility]'s home Plan of care note* Visit Details Visit Type -MANAGER PULMONARY ROUTINE Discipline -Speech Language Pathology Problems Problem Description Start Date Status Goals Interve ntions Medication Education Disciplines: Skilled Services 09/22/2024 Active 1 goal linked to scheduled/document ed intervention 1 goal intervention scheduled/documente d in this visit Sepsis Disciplines: Skilled Services 09/22/2024 Active 1 goal linked to scheduled/document ed intervention 1 goal intervention scheduled/documente d in this visit MANAGER PULMONARY Referral Disciplines: Skilled Services 09/22/2024 Active 1 [...] goal interventions scheduled/documente d in this visit MANAGER PULMONARY Learning Assessment Disciplines: MANAGER PULMONARY 09/23/2024 Active 1 goal linked to scheduled/document ed intervention 1 goal intervention scheduled/documente d in this visit MANAGER PULMONARY Language Reading Comprehension Disciplines: MANAGER PULMONARY 09/23/2024 Active 1 goal linked to scheduled/document ed intervention 1 goal intervention scheduled/documente d in this visit MANAGER PULMONARY Language Auditory Comprehension Disciplines: MANAGER PULMONARY 09/23/2024 Active 1 goal linked to scheduled/document ed intervention 1 goal intervention scheduled/documente d in this visit MANAGER PULMONARY Language Verbal Expression Disciplines: MANAGER PULMONARY 09/23/2024 Active 1 goal linked to scheduled/document ed intervention 1 goal intervention scheduled/documente d in this visit MANAGER PULMONARY Cognition Memory Disciplines: MANAGER PULMONARY 09/23/2024 Active 1 goal linked to scheduled/document ed intervention 1 goal intervention scheduled/documente d in this visit MANAGER PULMONARY Cognition Executive Function/Problem Solving/Reasonin g Disciplines: MANAGER PULMONARY 09/23/2024 Active 1 goal linked to scheduled/document [...] be referred to additional discipline as needed MANAGER PULMONARY Referral No Manage Risk for falls Description: [...] educational instruction, to be achieved by 10/16/24. MANAGER PULMONARY Learning Assessment No Improve Reading Comprehension STG Description: Patient will demonstrate ability to read sentences for improved ability to function in the home and community as evidenced by pictures to sentences, comprehension questions and following written instructions with minimal cues in 80% accuracy. To be achieved by 10/16/24. MANAGER PULMONARY Language Reading Comprehension No Improve Auditory Comprehension STG Description: Patient/caregiver will improve comprehension of following multi-step directions, complex yes/no and open ended questions with minimal cues in 80% accuracy. To be achieved by 10/09/24. MANAGER PULMONARY Language Auditory Comprehension No Improve Verbal Expression STG Description: Patient/caregiver will produce sentence completion, description, confrontation naming and response naming to indicate thoughts, wants, needs and ideas with others, with minimal verbal and semantic cues with/in 80% accuracy. To be achieved by 10/09/24. MANAGER PULMONARY Language Verbal Expression No Improve Memory Skills STG Description: Patient/caregiver will verbalize/demonstrate awareness of memory strategies for short term memory information with minimal cues verbally and visually with/in 65% accuracy. To be achieved by 10/09/24. MANAGER PULMONARY Cognition Memory No Improve Problem Solving or Reasoning Description: Patient will complete problem solving or reasoning tasks related to basic mathematic skills generate solutions, sequencing and situation problem solving with minimal cueing with/in 70% accuracy. To be achieved by 10/09/24. MANAGER PULMONARY Cognition Executive Function/Problem Solving/Reasoning No Interventions Intervention [...] identify and report symptoms of sepsis Completed MANAGER PULMONARY evaluation and treatment Description: ST Referral eval and treat for Impaired verbal expression and memory and establish HEP. Problem:MANAGER PULMONARY Referral Goal:Patient will be referred to additional discipline as needed Completed Instruct on individual fall risk factors and strategies to prevent falls and injuries caused by falls. Problem:Risk for Falls Goal:Manage Risk for falls Completed MANAGER PULMONARY: Patient instructed on Managing Impaired Functional Mobility: [...] Discuss all medications you are taking, even [id number] medicines, with your provider and pharmacist since [...] of patient/caregiver knowledge deficit and educational instruction Problem:MANAGER PULMONARY Learning Assessment Goal:Patient/Caregiv er Demonstrates understanding of education Completed Education methods include: verbal cues, visual cues and teach back. Further education required to improve knowledge and compliance with functional cognitive, language skills, speech intelligibility strategies and home exercise program. Reading Exercise Instruction Problem:MANAGER PULMONARY Language Reading Comprehension Goal:Improve Reading Comprehension STG Completed MANAGER PULMONARY instructed patient/caregiver to demonstrate reading comprehension of phrases and sentences with matching pictures to words and comprehension questions, patient/caregiver completed with minimal cues in 80% trials. Auditory Comprehension Instruction Problem:MANAGER PULMONARY Language Auditory Comprehension Goal:Improve Auditory Comprehension STG Completed MANAGER PULMONARY instructed/cued patient to complete the following tasks to improve auditory comprehension skills complex yes/no, answering simple questions related to autobiographical info, comprehend Wh questions and open ended questions with minimal cues in 90% accuracy. Verbal Expression Problem:MANAGER PULMONARY Language Verbal Expression Goal:Improve Verbal Expression STG Completed MANAGER PULMONARY instructed patient to produce description, responses to Wh questions and responses to closed ended questions to indicate thoughts, wants, needs and ideas with others, with minimal verbal and semantic cues with/in 80% trials. Memory Strategy Education Memory Exercises and Techniques Problem:MANAGER PULMONARY Cognition Memory Goal:Improve Memory Skills STG Completed Instructed patient/caregiver on use of memory strategies repetition, association and visual aides to improve ability to recall immediate memory tasks and short term memory tasks patient completed with moderate cueing with/in 3/4 trials. Problem Solving Reasoning Problem:MANAGER PULMONARY Cognition Executive Function/Problem Solving/Reasoning Goal:Improve Problem Solving or Reasoning Completed Instructed patient on exercises and tasks to improve planning and self-monitoring skills for completion of tasks in home environment: situation problem solving and reasoning, patient completed with minimal cueing with/in 14/20 trials. documented in this encounter [facility]'s home Plan of care note* Visit Details Visit Type -PRICING SUPERVISOR ROUTINE Discipline -Physical Therapy Problems Problem Description [...] in order to resume walking around the [address] with her friends , to be [...] instructed on instructed on when to call [id number] (balance, eyes, face, arms, speech, time). Instruct and educate on knowledge deficits Problem:PT Learning Assessment Goal:Demonstrate understanding of education Completed patient verbalize and/or demonstrate understanding of physical therapy education including functional activity and home exercise program. Education methods include: verbal cues and visual cues. Further education required to improve knowledge and compliance with home exercise program. documented in this encounter [facility]'s home Plan of care note* Visit Details Visit Type -SN ROUTINE Discipline -Halfway Problems Problem Description Start Date Status Goals Interve ntions Medication Education Disciplines: Skilled Services 09/22/2024 Active 1 goal linked to scheduled/docume nted intervention 1 goal intervention scheduled/documen any in this visit Sepsis Disciplines: Skilled Services 09/22/2024 Active 1 goal linked to scheduled/docume nted intervention 1 goal intervention scheduled/documen any in this visit LICENSED LIFE AND HEALTH AGENT Referral Disciplines: Skilled Services 09/22/2024 Resolved on 09/29/2024 1 goal linked to scheduled/docume nted intervention MANAGER PULMONARY Referral Disciplines: Skilled Services 09/22/2024 Resolved on [...] be referred to additional discipline as needed LICENSED LIFE AND HEALTH AGENT Referral Completed Yes Patient will be referred to additional discipline as needed MANAGER PULMONARY Referral Completed Yes Manage Risk for falls [...] of neurological disease process and management of usp effects and risk factors by 10/14/24,. SN [...] Discuss all medications you are taking, even [id number] medicines, with your provider and pharmacist since [...] patient and/or caregiver on neurological disease process, terminal system operator effects, and effective management strategies Description: Patient [...] throughout certification period Completed SPO2 Description: Notify DIRECTOR [employer] COMMUNICATIONS J Suppan if pulse ox is <92% at rest. Problem:Physician Specific Parameters Goal:Patient to maintain parameters within physician-specified ranges throughout certification period Completed documented in this encounter [facility]'s home Plan of care note* Visit Details Visit Type -MANAGER PULMONARY ROUTINE Discipline -Speech Language Pathology Problems Problem Description Start Date Status Goals Interve ntions Medication Education Disciplines: Skilled Services 09/22/2024 Active 1 goal linked to scheduled/document ed intervention 1 goal intervention scheduled/document ed in this visit Sepsis Disciplines: Skilled Services 09/22/2024 Active 1 goal linked to scheduled/document ed intervention 1 goal intervention scheduled/document ed in this visit MANAGER PULMONARY Referral Disciplines: Skilled Services 09/22/2024 Resolved on [...] goal interventions scheduled/document ed in this visit MANAGER PULMONARY Learning Assessment Disciplines: MANAGER PULMONARY 09/23/2024 Active 1 goal linked to scheduled/document ed intervention 1 goal intervention scheduled/document ed in this visit MANAGER PULMONARY Language Reading Comprehension Disciplines: MANAGER PULMONARY 09/23/2024 Active 2 goals linked to scheduled/document ed interventions 2 goal interventions scheduled/document ed in this visit MANAGER PULMONARY Language Auditory Comprehension Disciplines: MANAGER PULMONARY 09/23/2024 Active 2 goals linked to scheduled/document ed interventions 2 goal interventions scheduled/document ed in this visit MANAGER PULMONARY Language Verbal Expression Disciplines: MANAGER PULMONARY 09/23/2024 Active 2 goals linked to scheduled/document ed interventions 2 goal interventions scheduled/document ed in this visit MANAGER PULMONARY Cognition Memory Disciplines: MANAGER PULMONARY 09/23/2024 Active 1 goal linked to scheduled/document ed intervention 1 goal intervention scheduled/document ed in this visit MANAGER PULMONARY Cognition Executive Function/Proble m Solving/Reasoni ng Disciplines: MANAGER PULMONARY 09/23/2024 Active 2 goals linked to scheduled/document [...] be referred to additional discipline as needed MANAGER PULMONARY Referral No Manage Risk for falls Description: [...] educational instruction, to be achieved by 10/16/24. MANAGER PULMONARY Learning Assessment No Improve Reading Comprehension STG Description: Patient will demonstrate ability to read sentences for improved ability to function in the home and community as evidenced by pictures to sentences, comprehension questions and following written instructions with minimal cues in 80% accuracy. To be achieved by 10/16/24. MANAGER PULMONARY Language Reading Comprehension No Improve Reading Comprehension LTG Description: Patient will demonstrate ability to read at sentence level for improved ability to function in the home and community as evidenced by pictures to sentences, comprehension questions and following written instructions with minimal cues in 90% accuracy. To be achieved by 10/09/24. MANAGER PULMONARY Language Reading Comprehension No Improve Auditory Comprehension STG Description: Patient/caregiver will improve comprehension of following multi-step directions, complex yes/no and open ended questions with minimal cues in 80% accuracy. To be achieved by 10/09/24. MANAGER PULMONARY Language Auditory Comprehension No Improve Auditory Comprehension LTG Description: Patient/caregiver will demonstrate comprehension of complex conversational information to improve interaction needs with minimal cues in 90% accuracy. To be achieved by 10/16/24. MANAGER PULMONARY Language Auditory Comprehension No Improve Verbal Expression STG Description: Patient/caregiver will produce sentence completion, description, confrontation naming and response naming to indicate thoughts, wants, needs and ideas with others, with minimal verbal and semantic cues with/in 80% accuracy. To be achieved by 10/09/24. MANAGER PULMONARY Language Verbal Expression No Improve Verbal Expression LTG Description: Patient/caregiver will demonstrate improved verbal communication skills at a sentence level to improve communication interaction of basic social/medical needs with minimal verbal and semantic cues in 90% accuracy. To be achieved by 10/16/24. MANAGER PULMONARY Language Verbal Expression No Improve Memory Skills STG Description: Patient/caregiver will verbalize/demonstrate awareness of memory strategies for short term memory information with minimal cues verbally and visually with/in 65% accuracy. To be achieved by 10/09/24. MANAGER PULMONARY Cognition Memory No Improve Problem Solving or Reasoning Description: Patient will complete problem solving or reasoning tasks related to basic mathematic skills generate solutions, sequencing and situation problem solving with minimal cueing with/in 70% accuracy. To be achieved by 10/09/24. MANAGER PULMONARY Cognition Executive Function/Problem Solving/Reasoning No Improve Executive Function, Problem Solving And Reasoning LTG Description: Patient will demonstrate ability to use strategies and techniques to improve planning and self monitoring skills, problem solving and reasoning skills for completion of tasks in home environment: home maintenance and medication management with minimal cueing with/in 70% accuracy, to improve independence. To be achieved by 10/16/24. MANAGER PULMONARY Cognition Executive Function/Problem Solving/Reasoning No Interventions Intervention [...] identify and report symptoms of sepsis Completed MANAGER PULMONARY evaluation and treatment Description: ST Referral eval and treat for Impaired verbal expression and memory and establish HEP. Problem:MANAGER PULMONARY Referral Goal:Patient will be referred to additional discipline as needed Completed Instruct on individual fall risk factors and strategies to prevent falls and injuries caused by falls. Problem:Risk for Falls Goal:Manage Risk for falls Completed MANAGER PULMONARY: Patient instructed on Managing Impaired Functional Mobility: [...] Discuss all medications you are taking, even [id number] medicines, with your provider and pharmacist since [...] of patient/caregiver knowledge deficit and educational instruction Problem:MANAGER PULMONARY Learning Assessment Goal:Patient/Caregive r Demonstrates understanding of education Completed Education methods include: verbal cues, written instructions, visual cues and teach back. Further education required to improve knowledge and compliance with functional cognitive and language skills. Reading Exercise Instruction Problem:MANAGER PULMONARY Language Reading Comprehension Goal:Improve Reading Comprehension STG Completed MANAGER PULMONARY instructed patient/caregiver to demonstrate reading comprehension of sentences and paragraphs with comprehension questions, patient/caregiver completed with no cues in 10/10 trials. Reading Exercise Instruction Problem:MANAGER PULMONARY Language Reading Comprehension Goal:Improve Reading Comprehension LTG Completed MANAGER PULMONARY instructed patient/caregiver to demonstrate reading comprehension of sentences and paragraphs with comprehension questions, patient/caregiver completed with minimal cues in 10/10 trials. Auditory Comprehension Instruction Problem:MANAGER PULMONARY Language Auditory Comprehension Goal:Improve Auditory Comprehension STG Completed MANAGER PULMONARY instructed/cued patient to complete the following tasks to improve auditory comprehension skills complex yes/no, comprehend Wh questions, open ended questions and closed ended questions with minimal cues in 10/10 trials. Auditory Comprehension Instruction Problem:MANAGER PULMONARY Language Auditory Comprehension Goal:Improve Auditory Comprehension LTG Completed MANAGER PULMONARY instructed/cued patient to complete the following tasks to improve auditory comprehension skills complex yes/no, comprehend Wh questions, open ended questions and closed ended questions with minimal cues in 100% trials. Verbal Expression Problem:MANAGER PULMONARY Language Verbal Expression Goal:Improve Verbal Expression STG Completed MANAGER PULMONARY instructed patient to produce description, responses to Wh questions, responses to open ended questions, responses to closed ended questions and confrontation naming to indicate thoughts, wants, needs and ideas with others, with minimal verbal cues with/in 8/10 trials. Verbal Expression Problem:MANAGER PULMONARY Language Verbal Expression Goal:Improve Verbal Expression LTG Completed MANAGER PULMONARY instructed patient to produce description, responses to Wh questions, responses to open ended questions and responses to closed ended questions to indicate thoughts, wants, needs and ideas with others, with minimal verbal and semantic cues with/in 8/10 trials. Memory Strategy Education Memory Exercises and Techniques Problem:MANAGER PULMONARY Cognition Memory Goal:Improve Memory Skills STG Completed Instructed patient/caregiver on use of memory strategies writing, repetition, association and calendar to improve ability to recall immediate memory tasks and short term memory tasks patient completed with minimal cueing with/in 10/12 trials. Problem Solving Reasoning Problem:MANAGER PULMONARY Cognition Executive Function/Problem Solving/Reasoning Goal:Improve Problem Solving or Reasoning Completed Instructed patient on exercises and tasks to improve planning and self-monitoring skills for completion of tasks in home environment: cause and effect and reasoning, patient completed with minimal cueing with/in 7/7 trials. Executive Function Problem Solving Reasoning Problem:MANAGER PULMONARY Cognition Executive Function/Problem Solving/Reasoning Goal:Improve Executive Function, Problem Solving And Reasoning LTG Completed MANAGER PULMONARY instructed patient to complete exercises for improved problem solving and reasoning skills for completion of tasks in home environment bill paying, shopping, home maintenance, medication management, cell phone use and scheduling with moderate cueing, patient able to complete with/in 5/7 trials. documented in this encounter [facility]'s home Plan of care note* Visit Details [...] [facility]. [facility] Visit Details Visit Type -PRICING SUPERVISOR ROUTINE Discipline -Physical Therapy Problems Problem Description [...] in order to resume walking around the [address] with her friends , to be [...] home exercise program. documented in this encounter [facility]'s home Plan of care note* Visit Details Visit Type -MANAGER PULMONARY ROUTINE Discipline -Speech Language Pathology Problems Problem [...] goal interventions scheduled/document ed in this visit MANAGER PULMONARY Learning Assessment Disciplines: MANAGER PULMONARY 09/23/2024 Active 1 goal linked to scheduled/document ed intervention 1 goal intervention scheduled/document ed in this visit MANAGER PULMONARY Language Auditory Comprehension Disciplines: MANAGER PULMONARY 09/23/2024 Resolved on 10/04/2024 2 goals linked to scheduled/document ed interventions 2 goal interventions scheduled/document ed in this visit MANAGER PULMONARY Language Verbal Expression Disciplines: MANAGER PULMONARY 09/23/2024 Active 2 goals linked to scheduled/document ed interventions 2 goal interventions scheduled/document ed in this visit MANAGER PULMONARY Cognition Memory Disciplines: MANAGER PULMONARY 09/23/2024 Active 1 goal linked to scheduled/document ed intervention 1 goal intervention scheduled/document ed in this visit MANAGER PULMONARY Cognition Executive Function/Proble m Solving/Reasoni ng Disciplines: MANAGER PULMONARY 09/23/2024 Active 2 goals linked to scheduled/document [...] educational instruction, to be achieved by 10/16/24. MANAGER PULMONARY Learning Assessment No Improve Auditory Comprehension STG Description: Patient/caregiver will improve comprehension of following multi-step directions, complex yes/no and open ended questions with minimal cues in 80% accuracy. To be achieved by 10/09/24. MANAGER PULMONARY Language Auditory Comprehension Completed Yes Goal met Improve Auditory Comprehension LTG Description: Patient/caregiver will demonstrate comprehension of complex conversational information to improve interaction needs with minimal cues in 90% accuracy. To be achieved by 10/16/24. MANAGER PULMONARY Language Auditory Comprehension Completed Yes Goal met Improve Verbal Expression STG Description: Patient/caregiver will produce sentence completion, description, confrontation naming and response naming to indicate thoughts, wants, needs and ideas with others, with minimal verbal and semantic cues with/in 80% accuracy. To be achieved by 10/09/24. MANAGER PULMONARY Language Verbal Expression No Improve Verbal Expression LTG Description: Patient/caregiver will demonstrate improved verbal communication skills at a sentence level to improve communication interaction of basic social/medical needs with minimal verbal and semantic cues in 90% accuracy. To be achieved by 10/16/24. MANAGER PULMONARY Language Verbal Expression No Improve Memory Skills STG Description: Patient/caregiver will verbalize/demonstrate awareness of memory strategies for short term memory information with minimal cues verbally and visually with/in 65% accuracy. To be achieved by 10/09/24. MANAGER PULMONARY Cognition Memory No Improve Problem Solving or Reasoning Description: Patient will complete problem solving or reasoning tasks related to basic mathematic skills generate solutions, sequencing and situation problem solving with minimal cueing with/in 70% accuracy. To be achieved by 10/09/24. MANAGER PULMONARY Cognition Executive Function/Problem Solving/Reasoning No Improve Executive Function, Problem Solving And Reasoning LTG Description: Patient will demonstrate ability to use strategies and techniques to improve planning and self monitoring skills, problem solving and reasoning skills for completion of tasks in home environment: home maintenance and medication management with minimal cueing with/in 70% accuracy, to improve independence. To be achieved by 10/16/24. MANAGER PULMONARY Cognition Executive Function/Problem Solving/Reasoning No Interventions Intervention [...] for Falls Goal:Manage Risk for falls Completed MANAGER PULMONARY: Patient instructed on Managing Impaired Functional Mobility: [...] Discuss all medications you are taking, even [id number] medicines, with your provider and pharmacist since [...] of patient/caregiver knowledge deficit and educational instruction Problem:MANAGER PULMONARY Learning Assessment Goal:Patient/Caregiv er Demonstrates understanding of education Completed Education methods include: verbal cues, written instructions and teach back. Further education required to improve knowledge and compliance with functional cognitive and home exercise program. Auditory Comprehension Instruction Problem:MANAGER PULMONARY Language Auditory Comprehension Goal:Improve Auditory Comprehension STG Completed MANAGER PULMONARY instructed/cued patient to complete the following tasks to improve auditory comprehension skills following multi-step directions, complex yes/no, answering questions related to autobiographical info, open ended questions and closed ended questions with no cues in 10/10 trials. Auditory Comprehension Instruction Problem:MANAGER PULMONARY Language Auditory Comprehension Goal:Improve Auditory Comprehension LTG Completed MANAGER PULMONARY instructed/cued patient to complete the following tasks to improve auditory comprehension skills following multi-step directions, complex yes/no, answering questions related to autobiographical info, comprehend Wh questions, open ended questions and closed ended questions with no cues in 10/10 trials. Verbal Expression Problem:MANAGER PULMONARY Language Verbal Expression Goal:Improve Verbal Expression STG Completed MANAGER PULMONARY instructed patient to produce responses to autobiographical questions, responses to Wh questions and response naming to indicate thoughts, wants, needs and ideas with others, with minimal verbal and semantic cues with/in 70% trials. Verbal Expression Problem:MANAGER PULMONARY Language Verbal Expression Goal:Improve Verbal Expression LTG Completed MANAGER PULMONARY instructed patient to produce responses to autobiographical questions, responses to Wh questions and response naming to indicate thoughts, wants, needs and ideas with others, with minimal verbal and semantic cues with/in 70% trials. Memory Strategy Education Memory Exercises and Techniques Problem:MANAGER PULMONARY Cognition Memory Goal:Improve Memory Skills STG Completed Instructed patient/caregiver on use of memory strategies writing, repetition, association, visual aides, calendar, written visual cues and dry erase board to improve ability to recall short term memory tasks patient completed with minimal moderate cueing with/in 3/5 opportunities. Problem Solving Reasoning Problem:MANAGER PULMONARY Cognition Executive Function/Problem Solving/Reasoning Goal:Improve Problem Solving or Reasoning Completed Instructed patient on exercises and tasks to improve planning and self-monitoring skills for completion of tasks in home environment: sequencing, patient completed with moderate cueing with/in 70% trials. Executive Function Problem Solving Reasoning Problem:MANAGER PULMONARY Cognition Executive Function/Problem Solving/Reasoning Goal:Improve Executive Function, Problem Solving And Reasoning LTG Completed MANAGER PULMONARY instructed patient to complete exercises for improved problem solving for completion of tasks in home environment medication management and cell phone use with moderate cueing, patient able to complete with/in 70% accuracy. documented in this encounter [facility]'s home Plan of care note* Visit Details Visit Type -SN DISC DC W VIS IT Discipline -Halfway Problems Problem Description Start Date Status Goals [...] of neurological disease process and management of terminal system operator effects and risk factors by 10/14/24,. SN [...] Discuss all medications you are taking, even aejl-olv-[id number] medicines, with your provider and pharmacist since [...] patient and/or caregiver on neurological disease process, usp effects, and effective management strategies Description: Patient [...] certification period Completed documented in this encounter [facility]'s home Plan of care note* Visit Details [...] achieved by 10/30/24 Pt will demo improved mobile ui developer strength in R hand by 3 pounds. [...] hand theraputty exercises including: putty rolling, full mobile ui developer, fingertip pinch and finger/thumb opposition with Green [...] to call 911. documented in this encounter [facility]'s home Plan of care note* Visit Details Visit Type -MANAGER PULMONARY ROUTINE Discipline -Speech Language Pathology Problems Problem [...] goal interventions scheduled/documente d in this visit MANAGER PULMONARY Learning Assessment Disciplines: MANAGER PULMONARY 09/23/2024 Active 1 goal linked to scheduled/documente d intervention 1 goal intervention scheduled/documente d in this visit MANAGER PULMONARY Cognition Memory Disciplines: MANAGER PULMONARY 09/23/2024 Active 1 goal linked to scheduled/documente d intervention 1 goal intervention scheduled/documente d in this visit MANAGER PULMONARY Cognition Executive Function/Proble m Solving/Reasoni ng Disciplines: MANAGER PULMONARY 09/23/2024 Active 2 goals linked to scheduled/documente [...] educational instruction, to be achieved by 10/16/24. MANAGER PULMONARY Learning Assessment No Improve Memory Skills STG Description: Patient/caregiver will verbalize/demonstrate awareness of memory strategies for short term memory information with minimal cues verbally and visually with/in 65% accuracy. To be achieved by 10/09/24. MANAGER PULMONARY Cognition Memory No Improve Problem Solving or Reasoning Description: Patient will complete problem solving or reasoning tasks related to basic mathematic skills generate solutions, sequencing and situation problem solving with minimal cueing with/in 70% accuracy. To be achieved by 10/09/24. MANAGER PULMONARY Cognition Executive Function/Problem Solving/Reasoning No Improve Executive Function, Problem Solving And Reasoning LTG Description: Patient will demonstrate ability to use strategies and techniques to improve planning and self monitoring skills, problem solving and reasoning skills for completion of tasks in home environment: home maintenance and medication management with minimal cueing with/in 70% accuracy, to improve independence. To be achieved by 10/16/24. MANAGER PULMONARY Cognition Executive Function/Problem Solving/Reasoning No Interventions Intervention [...] for Falls Goal:Manage Risk for falls Completed MANAGER PULMONARY: Patient and Caregiver instructed on Managing Impaired [...] Discuss all medications you are taking, even eols-zvh-bcysinn medicines, with your provider and pharmacist since [...] of patient/caregiver knowledge deficit and educational instruction Problem:MANAGER PULMONARY Learning Assessment Goal:Patient/Caregive r Demonstrates understanding of education Completed Education methods include: verbal cues, written instructions, visual cues and teach back. Further education required to improve knowledge and compliance with functional cognitive and home exercise program. Memory Strategy Education Memory Exercises and Techniques Problem:MANAGER PULMONARY Cognition Memory Goal:Improve Memory Skills STG Completed Instructed patient/caregiver on use of memory strategies writing and repetition to improve ability to recall immediate memory tasks and short term memory tasks patient completed with minimal cueing with/in 90% opportunities. Problem Solving Reasoning Problem:MANAGER PULMONARY Cognition Executive Function/Problem Solving/Reasoning Goal:Improve Problem Solving or Reasoning Completed Instructed patient on exercises and tasks to improve planning and self-monitoring skills for completion of tasks in home environment: Reasoning, situation problem solving and reasoning, patient completed with moderate cueing with/in 80% trials. Executive Function Problem Solving Reasoning Problem:MANAGER PULMONARY Cognition Executive Function/Problem Solving/Reasoning Goal:Improve Executive Function, Problem Solving And Reasoning LTG Completed MANAGER PULMONARY instructed patient to complete exercises for improved problem solving and reasoning skills for completion of tasks in home environment cell phone use with moderate cueing, patient able to complete with/in 80% trials. documented in this encounter [facility]'s home Plan of care note* Visit Details [...] throughout certification period Completed SPO2 Description: Notify DIRECTOR HR COMMUNICATIONS J Suppan if pulse ox is <92% [...] and energy conservation. documented in this encounter [facility]'s home Plan of care note* Visit Details [...] achieved by 10/30/24 Pt will demo improved mobile ui developer strength in R hand by 3 pounds. [...] to: caregiver assistance. Heart Rate Description: Notify DIRECTOR HR COMMUNICATIONS Codey Suppsamantha if heart rate < 60 or > 120 at rest. Problem:Physician Specific Parameters Goal:Patient to maintain parameters within physician-specified ranges throughout certification period Completed Blood Pressure Description: Notify DIRECTOR HR COMMUNICATIONS Dotty Suppan if resting SBP is <100 [...] to call provider. [facility] Visit Details [...] in order to resume walking around the [address] with her friends , to be [...] ex. completes with assist of private duty [employer]NE[employer] MOUNTER Physical Therapy Transfer Training Problem:PT Impaired mobility [...] and written instructions. documented in this encounter [facility]'s home Plan of care note* Visit Details [...] and energy conservation. documented in this encounter [facility]'s home Plan of care note* Visit Details Visit Type -MANAGER PULMONARY ROUTINE Discipline -Speech Language Pathology Problems Problem Description Start Date Status Goals Interve ntions Discharge Disciplines: Skilled Services 09/22/2024 Active 1 goal linked to scheduled/document ed intervention 1 goal intervention scheduled/documente d in this visit Physician Specific Parameters Disciplines: Skilled Services 09/22/2024 Active 1 goal linked to scheduled/document ed intervention 3 goal interventions scheduled/documente d in this visit MANAGER PULMONARY Learning Assessment Disciplines: MANAGER PULMONARY 09/23/2024 Active 1 goal linked to scheduled/document ed intervention 1 goal intervention scheduled/documente d in this visit MANAGER PULMONARY Language Reading Comprehension Disciplines: MANAGER PULMONARY 09/23/2024 Active 1 goal linked to scheduled/document ed intervention 1 goal intervention scheduled/documente d in this visit MANAGER PULMONARY Language Verbal Expression Disciplines: MANAGER PULMONARY 09/23/2024 Active 1 goal linked to scheduled/document [...] be achieved by 10/16/24, extended to 11/13/24. MANAGER PULMONARY Learning Assessment No Improve Reading Comprehension STG Description: Patient will demonstrate ability to read sentences for improved ability to function in the home and community as evidenced by pictures to sentences, comprehension questions and following written instructions with minimal cues in 80% accuracy. To be achieved by 10/16/24, extended to 11/06/24. MANAGER PULMONARY Language Reading Comprehension No Improve Verbal Expression STG Description: Patient/caregiver will produce sentence completion, description, confrontation naming and response naming to indicate thoughts, wants, needs and ideas with others, with minimal verbal and semantic cues with/in 80% accuracy. To be achieved by 10/09/24, extended to 11/06/24. MANAGER PULMONARY Language Verbal Expression No Interventions Intervention Associated [...] of patient/caregiver knowledge deficit and educational instruction Problem:MANAGER PULMONARY Learning Assessment Goal:Patient/Caregiver Demonstrates understanding of education Completed Education methods include: verbal cues and visual cues. Further education required to improve knowledge and compliance with functional cognitive, language skills and home exercise program. Reading Exercise Instruction Problem:MANAGER PULMONARY Language Reading Comprehension Goal:Improve Reading Comprehension STG Completed MANAGER PULMONARY instructed patient/caregiver to demonstrate reading comprehension of sentences with completing functional reading tasks, patient/caregiver completed with minimal cues in 78% accuracy. Verbal Expression Problem:MANAGER PULMONARY Language Verbal Expression Goal:Improve Verbal Expression STG Completed MANAGER PULMONARY instructed patient to produce description, confrontation naming and response naming to indicate thoughts, wants, needs and ideas with others, with moderate verbal and semantic cues with/in 78% accuracy. documented in this encounter [facility]'s home Plan of care note* Visit Details Visit Type -MANAGER PULMONARY REASSESSMENT Discipline -Speech Language Pathology Problems Problem Description Start Date Status Goals Interve ntions Discharge Disciplines: Skilled Services 09/22/2024 Active 1 goal linked to scheduled/document ed intervention 1 goal intervention scheduled/documente d in this visit Physician Specific Parameters Disciplines: Skilled Services 09/22/2024 Active 1 goal linked to scheduled/document ed intervention 3 goal interventions scheduled/documente d in this visit MANAGER PULMONARY Learning Assessment Disciplines: MANAGER PULMONARY 09/23/2024 Active 1 goal linked to scheduled/document ed intervention 1 goal intervention scheduled/documente d in this visit MANAGER PULMONARY Language Reading Comprehension Disciplines: MANAGER PULMONARY 09/23/2024 Active 1 goal linked to scheduled/document ed intervention 1 goal intervention scheduled/documente d in this visit MANAGER PULMONARY Language Written Expression Disciplines: MANAGER PULMONARY 09/23/2024 Active 1 goal linked to scheduled/document ed intervention 1 goal intervention scheduled/documente d in this visit MANAGER PULMONARY Language Verbal Expression Disciplines: MANAGER PULMONARY 09/23/2024 Active 1 goal linked to scheduled/document ed intervention 1 goal intervention scheduled/documente d in this visit MANAGER PULMONARY Cognition Memory Disciplines: MANAGER PULMONARY 09/23/2024 Active 1 goal linked to scheduled/document ed intervention 1 goal intervention scheduled/documente d in this visit MANAGER PULMONARY Cognition Executive Function/Problem Solving/Reasonin g Disciplines: MANAGER PULMONARY 09/23/2024 Active 1 goal linked to scheduled/document ed intervention 1 goal intervention scheduled/documente d in this visit MANAGER PULMONARY Speech Production/Intel ligibility Disciplines: MANAGER PULMONARY 10/14/2024 Active 1 goal linked to scheduled/document [...] be achieved by 10/16/24, extended to 11/13/24. MANAGER PULMONARY Learning Assessment No Improve Reading Comprehension STG Description: Patient will demonstrate ability to read sentences for improved ability to function in the home and community as evidenced by pictures to sentences, comprehension questions and following written instructions with minimal cues in 80% accuracy. To be achieved by 10/16/24, extended to 11/06/24. MANAGER PULMONARY Language Reading Comprehension No Improve Written Expression STG Description: Patient will demonstrate ability to write at number and letter level for improved ability to function in the home and community as evidenced by copying and writing to dictation with moderate cues in 75% accuracy. To be achieved by 10/09/24, extended to 11/06/24. MANAGER PULMONARY Language Written Expression No Improve Verbal Expression STG Description: Patient/caregiver will produce sentence completion, description, confrontation naming and response naming to indicate thoughts, wants, needs and ideas with others, with minimal verbal and semantic cues with/in 80% accuracy. To be achieved by 10/09/24, extended to 11/06/24. MANAGER PULMONARY Language Verbal Expression No Improve Memory Skills STG Description: Patient/caregiver will verbalize/demonstrate awareness of memory strategies for short term memory information with minimal cues verbally and visually with/in 65% accuracy. To be achieved by 10/09/24, extended to 11/06/24. MANAGER PULMONARY Cognition Memory No Improve Problem Solving or Reasoning Description: Patient will complete problem solving or reasoning tasks related to basic mathematic skills generate solutions, sequencing and situation problem solving with minimal cueing with/in 70% accuracy. To be achieved by 10/09/24, extended to 11/06/24. MANAGER PULMONARY Cognition Executive Function/Problem Solving/Reasoning No Improve Articulation and Intelligiblity Description: Patient will demonstrate improved production of conversation and social communication with appropriate articulator placement or use of compensatory strategies with minimal cues with/in 80% accuracy. To be achieved by 11/13/24. MANAGER PULMONARY Speech Production/Intelligibility No Interventions Intervention Associated Problem/Goal [...] of patient/caregiver knowledge deficit and educational instruction Problem:MANAGER PULMONARY Learning Assessment Goal:Patient/Caregive r Demonstrates understanding of education Completed Education methods include: verbal cues. Further education required to improve knowledge and compliance with functional cognitive, language skills, speech intelligibility strategies and home exercise program. Reading Exercise Instruction Problem:MANAGER PULMONARY Language Reading Comprehension Goal:Improve Reading Comprehension STG Completed MANAGER PULMONARY instructed patient/caregiver to demonstrate reading comprehension of words with completing functional reading tasks, patient/caregiver completed with minimal cues in 72% accuracy. Written Expression Instruction Problem:MANAGER PULMONARY Language Written Expression Goal:Improve Written Expression STG Completed MANAGER PULMONARY instructed patient to write letters by independently writing: letters with minimal cues in 20% accuracy. Verbal Expression Problem:MANAGER PULMONARY Language Verbal Expression Goal:Improve Verbal Expression STG Completed MANAGER PULMONARY instructed patient to produce description, confrontation naming and response naming to indicate thoughts, wants, needs and ideas with others, with minimal verbal and semantic cues with/in 68% accuracy. Memory Strategy Education Memory Exercises and Techniques Problem:MANAGER PULMONARY Cognition Memory Goal:Improve Memory Skills STG Completed Instructed patient/caregiver on use of memory strategies writing, repetition and association to improve ability to recall short term memory tasks patient completed with minimal cueing with/in 40% accuracy. Problem Solving Reasoning Problem:MANAGER PULMONARY Cognition Executive Function/Problem Solving/Reasoning Goal:Improve Problem Solving or Reasoning Completed Instructed patient on exercises and tasks to improve planning and self-monitoring skills for completion of tasks in home environment: sequencing, cause and effect and reasoning, patient completed with minimal cueing with/in 60% accuracy. Articulation Instruction Intelligibility Training Motor Planning Precision Training Speech Intelligiblity Exercise Problem:MANAGER PULMONARY Speech Production/Intelligib ility Goal:Improve Articulation and Intelligiblity Completed MANAGER PULMONARY instructed patient to use the SOS method (slow down, overarticulate, speak up) in conversation with minimal cues with/in 70% accuracy. documented in this encounter [facility] for referral (narrative)* Outpatient Procedure (Routine) - Closed Specialty Diagnoses / Procedures Referred By Contac t Referred To Contact [facility] Diagnoses Paroxysmal atrial fibrillation (HCC) Procedures ECG COMPLETE ECG ROUTINE ECG W/LEAST 12 LDS W/I&R Sandra Horne MD [address] [place] [address] [facility] [place] [id number] Referral ID Status Reason Start Date Expiration Date V isits Requested Visits Authorized [id number] Closed Auto-Generate d Referral 12/24/2022 12/24/2023 1 1 [facility] for referral (narrative)* Outpatient Procedure (Routine) - Pending Review Specialty Diagnoses / Procedures Referred By Contac t Referred To Contact [facility] Diagnoses Right carotid bruit Procedures US CAROTID ARTERIES [facility] DUPLEX SCAN EXTRACRANIAL ART COMPL BI STUDY Breann Schmitz APRN.DIRECTOR HR COMMUNICATIONS [address] [place] [address] [address] Referral ID Status Reason Start Date Expiration Date Visits Requested Visits Authorized [id number] Pending Review Auto-Generat ed Referral 05/26/2023 05/25/2024 1 1 * MRI/CT (Urgent) - Authorized Specialty Diagnoses / Procedures [facility] To Contact CT [facility] Diagnoses Transient cerebral ischemia, unspecified type Procedures CT BRAIN WO IVCON CT HEAD/BRAIN W/O CONTRAST MATERIAL Breann Schmitz APRN.DIRECTOR HR COMMUNICATIONS [address] [place] [address] [place] [address] Referral ID Status Reason Start Date Expiration Date Visits Requested Visits Authorized [id number] Authorized Auto-Generat ed Referral 05/26/2023 06/24/2024 1 1 [facility] for referral (narrative)* Diagnostic Procedure Only (Routine) - Closed Specialty Diagnoses / Procedures Referred By Contac t Referred To Contact XR IMAGING Diagnoses Pain Procedures XR KNEE GENERAL 4V AP BOTH/PA BOTH/LAT/MERC LEFT RADIOLOGIC EXAM KNEE COMPLETE 4/MORE VIEWS Tamia Quezada PA-C [address] [place] [address] [place] [address] Referral ID Status Reason Start Date Expiration Date V isits Requested Visits Authorized [id number] Closed Auto-Generate d Referral 05/13/2023 06/11/2024 1 1 [facility] for referral (narrative)* Diagnostic Procedure Only (Routine) - Closed Specialty Diagnoses / Procedures Referred By Contac t Referred To Contact XR IMAGING Diagnoses Acute pain of right shoulder Procedures XR SHOULDER [id number] AP/TRUE AP RIGHT RADEX SHOULDER COMPLETE MINIMUM 2 VIEWS Jose G Harrington PA-C [address] [place] [address] [place] [address] Referral ID Status Reason Start Date Expiration Date V isits Requested Visits Authorized [id number] Closed Auto-Generate d Referral 03/31/2023 04/29/2024 1 1 [facility] for referral (narrative)* Diagnostic Procedure Only (Routine) - Closed Specialty Diagnoses / Procedures Referred By Contac t Referred To Contact XR IMAGING Diagnoses Left thigh pain Procedures XR FEMUR GENERAL 2V AP/LAT LEFT RADIOLOGIC EXAMINATION FEMUR MINIMUM 2 VIEWS Breann Schmitz APRN.CNP [address] [place] [address] [place] [address] Referral ID Status Reason Start Date Expiration Date V isits Requested Visits Authorized [id number] Closed Auto-Generate d Referral 06/13/2021 07/13/2022 1 1 * Diagnostic Procedure Only (Routine) - Closed Specialty Diagnoses / Procedures Referred By Contac t Referred To Contact XR IMAGING Diagnoses Left thigh pain Procedures XR HIP GENERAL 3V PELV/AP/LAT LEFT RADEX HIP UNILATERAL WITH PELVIS 2-3 VIEWS Breann Schmitz APRN.CNP [address] [place] [address] [place] [address] Referral ID Status Reason Start Date Expiration Date V isits Requested Visits Authorized [id number] Closed Auto-Generate d Referral 06/13/2021 07/13/2022 1 1 [facility] for referral (narrative)No reason for referral information availableWOhio [facility] Work Phone: Reason for visit Narrative* Diagnostic Procedure Only (Routine) - Closed Specialty Diagnoses / Procedures Referred By Contac t Referred To Contact XR IMAGING Diagnoses Pain Procedures XR KNEE GENERAL 4V AP BOTH/PA BOTH/LAT/MERC LEFT RADIOLOGIC EXAM KNEE COMPLETE 4/MORE VIEWS Tamia Quezada PA-C [address] [place] [address] [place] [address] Referral ID Status Reason Start Date Expiration Date V isits Requested Visits Authorized [id number] Closed Auto-Generate d Referral 05/13/2023 06/11/2024 1 1 [facility] for visit Narrative* Diagnostic Procedure Only (Routine) - Closed Specialty Diagnoses / Procedures Referred By Contac t Referred To Contact XR IMAGING Diagnoses Acute pain of right shoulder Procedures XR SHOULDER [id number] AP/TRUE AP RIGHT RADEX SHOULDER COMPLETE MINIMUM 2 VIEWS Jose G Harrington PA-C [address] [place] [address] [place] [address] Referral ID Status Reason Start Date Expiration Date V isits Requested Visits Authorized [id number] Closed Auto-Generate d Referral 03/31/2023 04/29/2024 1 [facility] Diagnostic Procedure Only (Routine) - Closed Specialty Diagnoses / Procedures Referred By Contac t Referred To Contact XR IMAGING Diagnoses Left thigh pain Procedures XR FEMUR GENERAL 2V AP/LAT LEFT RADIOLOGIC EXAMINATION FEMUR MINIMUM 2 VIEWS Breann Schmitz, EAN.DIRECTOR HR COMMUNICATIONS [address] [place] [address] [place] [address] Referral ID Status Reason Start Date Expiration Date V isits Requested Visits Authorized [id number] Closed Auto-Generate d Referral 06/13/2021 07/13/2022 1 1 [facility] Auth/Cert (Routine) Specialty Diagnoses / Procedures Referred By Contac t Referred To Contact [facility] [address] [place] [address] Phone: tel: Referral ID Status Reason Start Date Expiration Date Visits Re quested Visits Authorized [id number] 1 1 [facility] Summary Purpose Family History No Family History Records Found Relationship Condition Age at Onset Recorded Date/T ofe mother Malignant neoplasm Unknown Hypertension Unknown Cerebrovascular accident (CVA) Unknown father Cardiac disease Unknown brother Ischemic heart disease Unknown sister Hypertension Unknown Diabetes mellitus Unknown Advance Directives No Advanced Directives Records FoundDocuments on File Type Date Recorded 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 Advance Directive(s) 09/01/2020 6:44 AM Advance Directive(s) 08/24/2020 1:37 PM Advance Directive(s) 12/26/2016 9:06 AM Advance Directive(s) 10/03/2014 6:18 AM Advance Directive(s) 05/30/2011 8:35 AM Advance Directive Response Recorded Date/ Time Living Will Yes April 07, 022 9:24pm Power of Optical Systems Engineer Yes April 07, 2022 9:24pm Name of Medical Power of Optical Systems Engineer arlyn carvalho April 07, 2022 9:24pm Documents on File Type Date Recorded 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 Yes August 16, 2024 4:44pm Do you have a Healthcare Power of Optical Systems Engineer? No August 18, 2024 10:51am Advance Directive Response Recorded Date/ Time Do you have a Healthcare Power of Optical Systems Engineer? Yes August 16, 2024 4:44pm Do you have a Healthcare Power of Optical Systems Engineer? No August 18, 2024 3:53pm Advance Directive Response Recorded Date/ Time Do you have a Healthcare Pow er of Optical Systems Engineer? Yes August 16, 2024 4:44pm Do you have a Healthcare Pow er of Optical Systems Engineer? No August 18, 2024 3:53pm Do you have a Healthcare Pow er of Optical Systems Engineer? Yes August 23, 2024 11:37am Name of Medical Power of Optical Systems Engineer Aditi Hampton er, daughter August 23, 2024 11:37am Date Activated Date Inactivated Comments 09/22/2024 6:00 PM Date Activated Date Inactivated Comments 09/22/2024 6:00 PM Advance Directive Response Recorded Date/ Time Do you have a Healthcare Pow er of Optical Systems Engineer? Yes August 16, 2024 4:44pm Do you have a Healthcare Pow er of Optical Systems Engineer? No August 18, 2024 3:53pm Do you have a Healthcare Pow er of Optical Systems Engineer? Yes August 23, 2024 11:37am Name of Medical Power of Optical Systems Engineer Aditi mann, daughter August 23, 2024 11:37am Do you have a Healthcare Pow er of Optical Systems Engineer? 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 Advance Directives/Living Will 01/21/2008 Date [...] fibrillation (HCC) Procedures CONSULT TO CARDIOLOGY OFFICE/OUTPATIENT [facility] 60-74 MINUTES Jose G Harrington PA-C [address] [place] [address] Referral ID Status Reason Start Date Expiration Date Visits Requested Visits Authorized [id number] Pending Review PCP Requested Referral 04/11/2023 1 1 Specialty Diagnoses / Procedures Referred By Contac t Referred [facility] Diagnoses Paroxysmal atrial fibrillation (HCC) Procedures ECHO ECHO TTHRC R-T 2D W/WOM-MODE COMPL SPEC&COLR D Jose G Harrington PA-C [address] [place] [address] [facility] [address] [place] [address] Referral ID Status Reason Start Date Expiration Date V isits Requested Visits Authorized [id number] Closed Auto-Generate d Referral 04/11/2022 04/11/2023 1 1 Specialty Diagnoses / Procedures Referred By Contac t Referred To Contact CT IMAGING Diagnoses Transient cerebral ischemia, unspecified type Procedures CT BRAIN WO IVCON CT HEAD/BRAIN W/O CONTRAST MATERIAL Breann Schmitz, POURER.DIRECTOR HR COMMUNICATIONS [address] [place] [address] [place] [address] Referral ID Status Reason Start Date Expiration Date V isits Requested Visits Authorized [id number] Closed Auto-Generate d Referral 05/26/2023 06/24/2024 1 1 Specialty Diagnoses / Procedures Referred By Contac t Referred To Contact CT IMAGING Diagnoses Bilateral carotid artery stenosis Occlusion and stenosis of unspecified carotid artery Fibromuscular dysplasia (HCC) Procedures CTA NECK W IVCON CT ANGIOGRAPHY NECK W/CONTRAST/NONCONTRAST Hetal Gallardo, DO [address] [place] [address] Ct Imaging [facility] Referral ID Status Reason Start Date Expiration Date Visits Requested Visits Authorized [id number] Authorized Auto-Generat ed Referral 07/08/2023 08/06/2024 1 1 Specialty Diagnoses / Procedures Referred By Contac t Referred To Contact CT IMAGING Diagnoses Bilateral carotid artery stenosis Occlusion and stenosis of unspecified carotid artery Fibromuscular dysplasia (HCC) Procedures CTA HEAD W IVCON CT ANGIOGRAPHY HEAD W/CONTRAST/NONCONTRAST Hetal Gallardo, DO [address] [place] [id number] Imaging [place] [address] Referral ID Status Reason Start Date Expiration Date Visits Requested Visits Authorized [id number] Authorized Auto-Generat ed Referral 07/08/2023 08/06/2024 1 1 Additional Source Comments INFORMATION SOURCE (unrecogn ized section and content) DATE CREATED AUTHOR 10/08/2017 [facility] DATE CREATED AUTHOR AUTHOR'S ORGANIZ ATION 11/18/2024 [facility] DATE CREATED AUTHOR AUTHOR'S ORGANIZ ATION 01/07/2025 [facility] DATE CREATED AUTHOR AUTHOR'S ORGANIZ ATION 02/16/2025 [facility] Reason for Visit (unrecogniz ed section and content) Reason Comments Follow Up Injections Specialty Diagnoses / Procedures Referred By Contac t Referred To Contact Orthopedics / ORTHOPAEDIC SURGERY Diagnoses Unilateral primary osteoarthritis, left knee Procedures EUFLEXXA INJ PER DOSE Gel One or payor preferred Tamia Quezada PA-C [address] [place] [address] Tamia Quezada PA-C [address] [place] [address] Referral ID Status Reason Start Date Expiration Date V isits Requested Visits Authorized [id number] Authorized 06/30/2023 06/29/2024 99 99 Reason Comments PT Discharge Specialty Diagnoses / Procedures Referred By Contac t Referred To Contact [facility] Diagnoses DDD (degenerative disc disease), cervical Primary osteoarthritis of right hip Rotator cuff tear arthropathy, left Acute pain of right shoulder Cervicalgia Procedures CONSULT TO PHYSICAL THERAPY PHYSICAL THERAPY EVALUATION [facility] COMPLEX 45 MINS Jose G Harrington PA-C [address] [place] [address] [facility] [address] [place] [address] Referral ID Status Reason Start Date Expiration Date V isits Requested Visits Authorized [id number] Closed Auto-Generate d Referral 04/14/2023 04/13/2024 10 10 Reason Comments Physical Therapy Referral ID Status Reason Start Date Expiration Date Visits Requested Visits Authorized [id number] Authorized Auto-Generat ed Referral 04/14/2023 04/13/2024 10 [...] Consult Specialty Diagnoses / Procedures [facility] Referred To Contact Cardiology Diagnoses Paroxysmal atrial fibrillation (HCC) Procedures CONSULT TO CARDIOLOGY OFFICE/OUTPATIENT [facility] MDM 60-74 MINUTES Jose G Harrington PA-C [address] [place] [address] Referral ID Status Reason Start Date Expiration Date Visits Requested Visits Authorized [id number] Pending Review PCP Requested Referral 2 04/11/2023 1 1 Reason Comments PT Progress Note Reason Comments Dizziness Reason Comments Dizziness Reason Comments Radiology CT Specialty Diagnoses / Procedures [facility] Referred To Contact CT IMAGING Diagnoses Transient cerebral ischemia, unspecified type Procedures CT BRAIN WO IVCON CT HEAD/BRAIN W/O CONTRAST MATERIAL Breann Schmitz, EAN.DIRECTOR HR COMMUNICATIONS [address] [place] [address] [place] [address] Referral ID Status Reason Start Date Expiration Date V isits Requested Visits Authorized [id number] Closed Auto-Generate d Referral 05/26/2023 06/24/2024 1 1 Reason Comments Results Reason Comments Recheck 1 week follow up Reason Comments Established Patient Pain Reason Comments Consult Carotid Stenosis Dr. Ross Referr al Specialty Diagnoses / Procedures Referred By Stacey mayo Referred To Contact Vascular Surgery Diagnoses Bilateral carotid artery stenosis Procedures CONSULT TO VASCULAR SURGERY OFFICE/OUTPATIENT [facility] 60 MINUTES Moses Ross MD [address] [place] [address] Referral ID Status Reason Start Date Expiration Date V isits Requested Visits Authorized [id number] Closed PCP Requested Referral 06/06/2023 06/05/2024 1 1 Reason Comments urinary symptoms Reason Comments UTI Reason Comments Established Patient Injections Reason Comments Ingrown Toenail L great toe redness, swelling, painful, was seeping blood this am x 1 weekHas appt with Felicitas baker [id number] October 21 Reason Comments Follow Up 6 [...] Reason Comments Fax Neurovascular [facility] in [place] Reason Comments Extremity Weakness Specialty Diagnoses / Procedures Referred By Stacey mayo Referred To Contact Diagnoses Basal ganglia hemorrhage Stroke (Hemorrhagic stroke) Zoya Sher MD [address] [place] [address] Phone: tel: fax: [facility] [address] [place] [address] Referral ID Status Reason Start Date Expiration Date Visits Re quested Visits Authorized [id number] 1 1 Source Comments (unrecognize d section and content) In the event this informatio n is protected by the Federal Confidentiality of Alcohol and Drug Abuse Patient Records regulations: The Federal rules restrict any use of the information to criminally investigate or prosecute any alcohol or drug abuse patient.[facility] the event this information is protected by the Federal Confidentiality of Alcohol and Drug Abuse Patient Records regulations: The Federal rules restrict any use of the information to criminally investigate or prosecute any alcohol or drug abuse patient.[facility] Hospital[facility] the event this information is protected by the Federal Confidentiality of Alcohol and Drug Abuse Patient Records regulations: The Federal rules restrict any use of the information to criminally investigate or prosecute any alcohol or drug abuse patient.[facility] Hospital[facility] the event this information is protected by the Federal Confidentiality of Alcohol and Drug Abuse Patient Records regulations: The Federal rules restrict any use of the information to criminally investigate or prosecute any alcohol or drug abuse patient.[facility] Hospital[facility] the event this information is protected by the Federal Confidentiality of Alcohol and Drug Abuse Patient Records regulations: The Federal rules restrict any use of the information to criminally investigate or prosecute any alcohol or drug abuse patient.[facility] HospitalIn the event this information is protected by the Federal Confidentiality of Alcohol and Drug Abuse Patient Records regulations: The Federal rules restrict any use of the information to criminally investigate or prosecute any alcohol or drug abuse patient.[facility] Hospital[facility] the event this information is protected by the Federal Confidentiality of Alcohol and Drug Abuse Patient Records regulations: The Federal rules restrict any use of the information to criminally investigate or prosecute any alcohol or drug abuse patient.[facility] Hospital[facility] the event this information is protected by the Federal Confidentiality of Alcohol and Drug Abuse Patient Records regulations: The Federal rules restrict any use of the information to criminally investigate or prosecute any alcohol or drug abuse patient.[facility] Hospital[facility] the event this information is protected by the Federal Confidentiality of Alcohol and Drug Abuse Patient Records regulations: The Federal rules restrict any use of the information to criminally investigate or prosecute any alcohol or drug abuse patient.[facility] Hospital[facility] the event this information is protected by the Federal Confidentiality of Alcohol and Drug Abuse Patient Records regulations: The Federal rules restrict any use of the information to criminally investigate or prosecute any alcohol or drug abuse patient.[facility] HospitalIn the event this information is protected by the Federal Confidentiality of Alcohol and Drug Abuse Patient Records regulations: The Federal rules restrict any use of the information to criminally investigate or prosecute any alcohol or drug abuse patient.[facility] HospitalIn the event this information is protected by the Federal Confidentiality of Alcohol and Drug Abuse Patient Records regulations: The Federal rules restrict any use of the information to criminally investigate or prosecute any alcohol or drug abuse patient.[facility] HospitalIn the event this information is protected by the Federal Confidentiality of Alcohol and Drug Abuse Patient Records regulations: The Federal rules restrict any use of the information to criminally investigate or prosecute any alcohol or drug abuse patient.[facility] HospitalIn the event this information is protected by the Federal Confidentiality of Alcohol and Drug Abuse Patient Records regulations: The Federal rules restrict any use of the information to criminally investigate or prosecute any alcohol or drug abuse patient.[facility] HospitalIn the event this information is protected by the Federal Confidentiality of Alcohol and Drug Abuse Patient Records regulations: The Federal rules restrict any use of the information to criminally investigate or prosecute any alcohol or drug abuse patient.[facility] HospitalIn the event this information is protected by the Federal Confidentiality of Alcohol and Drug Abuse Patient Records regulations: The Federal rules restrict any use of the information to criminally investigate or prosecute any alcohol or drug abuse patient.[facility] HospitalIn the event this information is protected by the Federal Confidentiality of Alcohol and Drug Abuse Patient Records regulations: The Federal rules restrict any use of the information to criminally investigate or prosecute any alcohol or drug abuse patient.[facility] HospitalIn the event this information is protected by the Federal Confidentiality of Alcohol and Drug Abuse Patient Records regulations: The Federal rules restrict any use of the information to criminally investigate or prosecute any alcohol or drug abuse patient.[facility] HospitalIn the event this information is protected by the Federal Confidentiality of Alcohol and Drug Abuse Patient Records regulations: The Federal rules restrict any use of the information to criminally investigate or prosecute any alcohol or drug abuse patient.[facility] HospitalIn the event this information is protected by the Federal Confidentiality of Alcohol and Drug Abuse Patient Records regulations: The Federal rules restrict any use of the information to criminally investigate or prosecute any alcohol or drug abuse patient.[facility] HospitalIn the event this information is protected by the Federal Confidentiality of Alcohol and Drug Abuse Patient Records regulations: The Federal rules restrict any use of the information to criminally investigate or prosecute any alcohol or drug abuse patient.[facility] HospitalIn the event this information is protected by the Federal Confidentiality of Alcohol and Drug Abuse Patient Records regulations: The Federal rules restrict any use of the information to criminally investigate or prosecute any alcohol or drug abuse patient.[facility] HospitalIn the event this information is protected by the Federal Confidentiality of Alcohol and Drug Abuse Patient Records regulations: The Federal rules restrict any use of the information to criminally investigate or prosecute any alcohol or drug abuse patient.[facility] HospitalIn the event this information is protected by the Federal Confidentiality of Alcohol and Drug Abuse Patient Records regulations: The Federal rules restrict any use of the information to criminally investigate or prosecute any alcohol or drug abuse patient.[facility] HospitalIn the event this information is protected by the Federal Confidentiality of Alcohol and Drug Abuse Patient Records regulations: The Federal rules restrict any use of the information to criminally investigate or prosecute any alcohol or drug abuse patient.[facility] HospitalIn the event this information is protected by the Federal Confidentiality of Alcohol and Drug Abuse Patient Records regulations: The Federal rules restrict any use of the information to criminally investigate or prosecute any alcohol or drug abuse patient.[facility] HospitalIn the event this information is protected by the Federal Confidentiality of Alcohol and Drug Abuse Patient Records regulations: The Federal rules restrict any use of the information to criminally investigate or prosecute any alcohol or drug abuse patient.[facility] HospitalIn the event this information is protected by the Federal Confidentiality of Alcohol and Drug Abuse Patient Records regulations: The Federal rules restrict any use of the information to criminally investigate or prosecute any alcohol or drug abuse patient.[facility] HospitalIn the event this information is protected by the Federal Confidentiality of Alcohol and Drug Abuse Patient Records regulations: The Federal rules restrict any use of the information to criminally investigate or prosecute any alcohol or drug abuse patient.[facility] HospitalIn the event this information is protected by the Federal Confidentiality of Alcohol and Drug Abuse Patient Records regulations: The Federal rules restrict any use of the information to criminally investigate or prosecute any alcohol or drug abuse patient.[facility] HospitalIn the event this information is protected by the Federal Confidentiality of Alcohol and Drug Abuse Patient Records regulations: The Federal rules restrict any use of the information to criminally investigate or prosecute any alcohol or drug abuse patient.[facility] HospitalIn the event this information is protected by the Federal Confidentiality of Alcohol and Drug Abuse Patient Records regulations: The Federal rules restrict any use of the information to criminally investigate or prosecute any alcohol or drug abuse patient.[facility] HospitalIn the event this information is protected by the Federal Confidentiality of Alcohol and Drug Abuse Patient Records regulations: The Federal rules restrict any use of the information to criminally investigate or prosecute any alcohol or drug abuse patient.[facility] HospitalIn the event this information is protected by the Federal Confidentiality of Alcohol and Drug Abuse Patient Records regulations: The Federal rules restrict any use of the information to criminally investigate or prosecute any alcohol or drug abuse patient.[facility] HospitalIn the event this information is protected by the Federal Confidentiality of Alcohol and Drug Abuse Patient Records regulations: The Federal rules restrict any use of the information to criminally investigate or prosecute any alcohol or drug abuse patient.[facility] HospitalIn the event this information is protected by the Federal Confidentiality of Alcohol and Drug Abuse Patient Records regulations: The Federal rules restrict any use of the information to criminally investigate or prosecute any alcohol or drug abuse patient.[facility] HospitalIn the event this information is protected by the Federal Confidentiality of Alcohol and Drug Abuse Patient Records regulations: The Federal rules restrict any use of the information to criminally investigate or prosecute any alcohol or drug abuse patient.[facility] HospitalIn the event this information is protected by the Federal Confidentiality of Alcohol and Drug Abuse Patient Records regulations: The Federal rules restrict any use of the information to criminally investigate or prosecute any alcohol or drug abuse patient.[facility] HospitalIn the event this information is protected by the Federal Confidentiality of Alcohol and Drug Abuse Patient Records regulations: The Federal rules restrict any use of the information to criminally investigate or prosecute any alcohol or drug abuse patient.[facility] HospitalIn the event this information is protected by the Federal Confidentiality of Alcohol and Drug Abuse Patient Records regulations: The Federal rules restrict any use of the information to criminally investigate or prosecute any alcohol or drug abuse patient.[facility] HospitalIn the event this information is protected by the Federal Confidentiality of Alcohol and Drug Abuse Patient Records regulations: The Federal rules restrict any use of the information to criminally investigate or prosecute any alcohol or drug abuse patient.[facility] HospitalIn the event this information is protected by the Federal Confidentiality of Alcohol and Drug Abuse Patient Records regulations: The Federal rules restrict any use of the information to criminally investigate or prosecute any alcohol or drug abuse patient.[facility] HospitalIn the event this information is protected by the Federal Confidentiality of Alcohol and Drug Abuse Patient Records regulations: The Federal rules restrict any use of the information to criminally investigate or prosecute any alcohol or drug abuse patient.[facility] HospitalIn the event this information is protected by the Federal Confidentiality of Alcohol and Drug Abuse Patient Records regulations: The Federal rules restrict any use of the information to criminally investigate or prosecute any alcohol or drug abuse patient.[facility] HospitalIn the event this information is protected by the Federal Confidentiality of Alcohol and Drug Abuse Patient Records regulations: The Federal rules restrict any use of the information to criminally investigate or prosecute any alcohol or drug abuse patient.[facility] HospitalIn the event this information is protected by the Federal Confidentiality of Alcohol and Drug Abuse Patient Records regulations: The Federal rules restrict any use of the information to criminally investigate or prosecute any alcohol or drug abuse patient.[facility] HospitalIn the event this information is protected by the Federal Confidentiality of Alcohol and Drug Abuse Patient Records regulations: The Federal rules restrict any use of the information to criminally investigate or prosecute any alcohol or drug abuse patient.[facility] HospitalIn the event this information is protected by the Federal Confidentiality of Alcohol and Drug Abuse Patient Records regulations: The Federal rules restrict any use of the information to criminally investigate or prosecute any alcohol or drug abuse patient.[facility] HospitalIn the event this information is protected by the Federal Confidentiality of Alcohol and Drug Abuse Patient Records regulations: The Federal rules restrict any use of the information to criminally investigate or prosecute any alcohol or drug abuse patient.[facility] HospitalIn the event this information is protected by the Federal Confidentiality of Alcohol and Drug Abuse Patient Records regulations: The Federal rules restrict any use of the information to criminally investigate or prosecute any alcohol or drug abuse patient.[facility] HospitalIn the event this information is protected by the Federal Confidentiality of Alcohol and Drug Abuse Patient Records regulations: The Federal rules restrict any use of the information to criminally investigate or prosecute any alcohol or drug abuse patient.[facility] HospitalIn the event this information is protected by the Federal Confidentiality of Alcohol and Drug Abuse Patient Records regulations: The Federal rules restrict any use of the information to criminally investigate or prosecute any alcohol or drug abuse patient.[facility] HospitalIn the event this information is protected by the Federal Confidentiality of Alcohol and Drug Abuse Patient Records regulations: The Federal rules restrict any use of the information to criminally investigate or prosecute any alcohol or drug abuse patient.[facility] HospitalIn the event this information is protected by the Federal Confidentiality of Alcohol and Drug Abuse Patient Records regulations: The Federal rules restrict any use of the information to criminally investigate or prosecute any alcohol or drug abuse patient.[facility] HospitalIn the event this information is protected by the Federal Confidentiality of Alcohol and Drug Abuse Patient Records regulations: The Federal rules restrict any use of the information to criminally investigate or prosecute any alcohol or drug abuse patient.[facility] HospitalIn the event this information is protected by the Federal Confidentiality of Alcohol and Drug Abuse Patient Records regulations: The Federal rules restrict any use of the information to criminally investigate or prosecute any alcohol or drug abuse patient.[facility] HospitalIn the event this information is protected by the Federal Confidentiality of Alcohol and Drug Abuse Patient Records regulations: The Federal rules restrict any use of the information to criminally investigate or prosecute any alcohol or drug abuse patient.[facility] HospitalIn the event this information is protected by the Federal Confidentiality of Alcohol and Drug Abuse Patient Records regulations: The Federal rules restrict any use of the information to criminally investigate or prosecute any alcohol or drug abuse patient.[facility] HospitalIn the event this information is protected by the Federal Confidentiality of Alcohol and Drug Abuse Patient Records regulations: The Federal rules restrict any use of the information to criminally investigate or prosecute any alcohol or drug abuse patient.[facility] HospitalIn the event this information is protected by the Federal Confidentiality of Alcohol and Drug Abuse Patient Records regulations: The Federal rules restrict any use of the information to criminally investigate or prosecute any alcohol or drug abuse patient.[facility] HospitalIn the event this information is protected by the Federal Confidentiality of Alcohol and Drug Abuse Patient Records regulations: The Federal rules restrict any use of the information to criminally investigate or prosecute any alcohol or drug abuse patient.[facility] HospitalIn the event this information is protected by the Federal Confidentiality of Alcohol and Drug Abuse Patient Records regulations: The Federal rules restrict any use of the information to criminally investigate or prosecute any alcohol or drug abuse patient.[facility] HospitalIn the event this information is protected by the Federal Confidentiality of Alcohol and Drug Abuse Patient Records regulations: The Federal rules restrict any use of the information to criminally investigate or prosecute any alcohol or drug abuse patient.[facility] HospitalIn the event this information is protected by the Federal Confidentiality of Alcohol and Drug Abuse Patient Records regulations: The Federal rules restrict any use of the information to criminally investigate or prosecute any alcohol or drug abuse patient.[facility] HospitalIn the event this information is protected by the Federal Confidentiality of Alcohol and Drug Abuse Patient Records regulations: The Federal rules restrict any use of the information to criminally investigate or prosecute any alcohol or drug abuse patient.[facility] HospitalIn the event this information is protected by the Federal Confidentiality of Alcohol and Drug Abuse Patient Records regulations: The Federal rules restrict any use of the information to criminally investigate or prosecute any alcohol or drug abuse patient.[facility] HospitalIn the event this information is protected by the Federal Confidentiality of Alcohol and Drug Abuse Patient Records regulations: The Federal rules restrict any use of the information to criminally investigate or prosecute any alcohol or drug abuse patient.[facility] HospitalIn the event this information is protected by the Federal Confidentiality of Alcohol and Drug Abuse Patient Records regulations: The Federal rules restrict any use of the information to criminally investigate or prosecute any alcohol or drug abuse patient.[facility] HospitalIn the event this information is protected by the Federal Confidentiality of Alcohol and Drug Abuse Patient Records regulations: The Federal rules restrict any use of the information to criminally investigate or prosecute any alcohol or drug abuse patient.[facility] HospitalIn the event this information is protected by the Federal Confidentiality of Alcohol and Drug Abuse Patient Records regulations: The Federal rules restrict any use of the information to criminally investigate or prosecute any alcohol or drug abuse patient.[facility] HospitalIn the event this information is protected by the Federal Confidentiality of Alcohol and Drug Abuse Patient Records regulations: The Federal rules restrict any use of the information to criminally investigate or prosecute any alcohol or drug abuse patient.[facility] HospitalIn the event this information is protected by the Federal Confidentiality of Alcohol and Drug Abuse Patient Records regulations: The Federal rules restrict any use of the information to criminally investigate or prosecute any alcohol or drug abuse patient.[facility] HospitalIn the event this information is protected by the Federal Confidentiality of Alcohol and Drug Abuse Patient Records regulations: The Federal rules restrict any use of the information to criminally investigate or prosecute any alcohol or drug abuse patient.[facility] HospitalIn the event this information is protected by the Federal Confidentiality of Alcohol and Drug Abuse Patient Records regulations: The Federal rules restrict any use of the information to criminally investigate or prosecute any alcohol or drug abuse patient.[facility] HospitalIn the event this information is protected by the Federal Confidentiality of Alcohol and Drug Abuse Patient Records regulations: The Federal rules restrict any use of the information to criminally investigate or prosecute any alcohol or drug abuse patient.[facility] HospitalIn the event this information is protected by the Federal Confidentiality of Alcohol and Drug Abuse Patient Records regulations: The Federal rules restrict any use of the information to criminally investigate or prosecute any alcohol or drug abuse patient.[facility] HospitalIn the event this information is protected by the Federal Confidentiality of Alcohol and Drug Abuse Patient Records regulations: The Federal rules restrict any use of the information to criminally investigate or prosecute any alcohol or drug abuse patient.[facility] HospitalIn the event this information is protected by the Federal Confidentiality of Alcohol and Drug Abuse Patient Records regulations: The Federal rules restrict any use of the information to criminally investigate or prosecute any alcohol or drug abuse patient.[facility] HospitalIn the event this information is protected by the Federal Confidentiality of Alcohol and Drug Abuse Patient Records regulations: The Federal rules restrict any use of the information to criminally investigate or prosecute any alcohol or drug abuse patient.[facility] HospitalIn the event this information is protected by the Federal Confidentiality of Alcohol and Drug Abuse Patient Records regulations: The Federal rules restrict any use of the information to criminally investigate or prosecute any alcohol or drug abuse patient.[facility] HospitalIn the event this information is protected by the Federal Confidentiality of Alcohol and Drug Abuse Patient Records regulations: The Federal rules restrict any use of the information to criminally investigate or prosecute any alcohol or drug abuse patient.[facility] HospitalIn the event this information is protected by the Federal Confidentiality of Alcohol and Drug Abuse Patient Records regulations: The Federal rules restrict any use of the information to criminally investigate or prosecute any alcohol or drug abuse patient.[facility] HospitalIn the event this information is protected by the Federal Confidentiality of Alcohol and Drug Abuse Patient Records regulations: The Federal rules restrict any use of the information to criminally investigate or prosecute any alcohol or drug abuse patient.[facility] HospitalIn the event this information is protected by the Federal Confidentiality of Alcohol and Drug Abuse Patient Records regulations: The Federal rules restrict any use of the information to criminally investigate or prosecute any alcohol or drug abuse patient.[facility] HospitalIn the event this information is protected by the Federal Confidentiality of Alcohol and Drug Abuse Patient Records regulations: The Federal rules restrict any use of the information to criminally investigate or prosecute any alcohol or drug abuse patient.[facility] HospitalIn the event this information is protected by the Federal Confidentiality of Alcohol and Drug Abuse Patient Records regulations: The Federal rules restrict any use of the information to criminally investigate or prosecute any alcohol or drug abuse patient.[facility] HospitalIn the event this information is protected by the Federal Confidentiality of Alcohol and Drug Abuse Patient Records regulations: The Federal rules restrict any use of the information to criminally investigate or prosecute any alcohol or drug abuse patient.[facility] HospitalIn the event this information is protected by the Federal Confidentiality of Alcohol and Drug Abuse Patient Records regulations: The Federal rules restrict any use of the information to criminally investigate or prosecute any alcohol or drug abuse patient.[facility] HospitalIn the event this information is protected by the Federal Confidentiality of Alcohol and Drug Abuse Patient Records regulations: The Federal rules restrict any use of the information to criminally investigate or prosecute any alcohol or drug abuse patient.[facility] HospitalIn the event this information is protected by the Federal Confidentiality of Alcohol and Drug Abuse Patient Records regulations: The Federal rules restrict any use of the information to criminally investigate or prosecute any alcohol or drug abuse patient.[facility] Care Teams (unrecognized sec tion and content) [employer] Supervisor Relationship Specialty Start Date End Date Jose G Harrington PA-C [address] [place] [address] PCP - General Family Practice 01/27/17 Lamonte Toney MD Home Care Physician Orthopedics 10/17/14 Francis De La O MD Referring Internal Medicine 10/17/14 [employer] Supervisor Relationship Specialty Start Date End Date Jose G Harrington PA-C [address] [place] [address] PCP - General Family Practice 01/27/17 Lamonte Toney MD Home Care Physician Orthopedics 10/17/14 Francis De La O MD Referring Internal Medicine 10/17/14 [employer] Supervisor Relationship Specialty Start Date End Date Jose G Harrington PA-C [address] [place] [address] PCP - General Family Practice 01/27/17 Lamonte Toney MD Home Care Physician Orthopedics 10/17/14 Francis De La O MD Referring Internal Medicine 10/17/14 [employer] Supervisor Relationship Specialty Start Date End Date Jose G Harrington PA-C [address] [place] [address] PCP - General Family Practice 01/27/17 Lamonte Toney MD Home Care Physician Orthopedics 10/17/14 Francis De La O MD Referring Internal Medicine 10/17/14 [employer] Supervisor Relationship Specialty Start Date End Date Jose G Harrington PA-C [address] [place] [address] PCP - General Family Medicine 01/27/17 Lamonte Toney MD Home Care Provider Orthopedics 10/17/14 Frnacis De La O MD Referring Internal Medicine 10/17/14 [employer] Supervisor Relationship Specialty Start Date End Date Jose G Harrington PA-C [address] [place] [address] PCP - General Family Medicine 01/27/17 Lamonte Toney MD Home Care Provider Orthopedics 10/17/14 Francis De La O MD Referring Internal Medicine 10/17/14 [employer] Supervisor Relationship Specialty Start Date End Date Jose G Harrington PA-C [address] [place] [address] PCP - General Family Medicine 01/27/17 Lamonte Toney MD Home Care Provider Orthopedics 10/17/14 Francis De La O MD Referring Internal Medicine 10/17/14 [employer] Supervisor Relationship Specialty Start Date End Date Jose G Harrington PA-C [address] [place] [address] PCP - General Family Medicine 01/27/17 Lamonte Toney MD Home Care Provider Orthopedics 10/17/14 Francis De La O MD Referring Internal Medicine 10/17/14 [employer] Supervisor Relationship Specialty Start Date End Date Jose G Harrington PA-C [address] [place] [address] PCP - General Family Medicine 01/27/17 Lamonte Toney MD Home Care Provider Orthopedics 10/17/14 Francis De La O MD Referring Internal Medicine 10/17/14 [employer] Supervisor Relationship Specialty Start Date End Date Jose G Harrington PA-C [address] [place], [place] [id number] PCP - General Family Medicine 01/27/17 Lamonte Toney MD Home Care Provider Orthopedics 10/17/14 Francis De La O MD Referring Internal Medicine 10/17/14 [employer] Supervisor Relationship Specialty Start Date End Date Jose G Harrington PA-C [address] [place] [address] PCP - General Family Medicine 01/27/17 Lamonte Toney MD Home Care Provider Orthopedics 10/17/14 Francis De La O MD Referring Internal Medicine 10/17/14 [employer] Supervisor Relationship Specialty Start Date End Date Jose G Harrington PA-C [address] [place] [address] PCP - General Family Medicine 01/27/17 Lamonte Toney MD Home Care Provider Orthopedics 10/17/14 Francis De La O MD Referring Internal Medicine 10/17/14 [employer] Supervisor Relationship Specialty Start Date End Date Jose G Harrington PA-C [address] [place] [address] PCP - General Family Medicine 01/27/17 Lamonte Toney MD Home Care Provider Orthopedics 10/17/14 Francis De La O MD Referring Internal Medicine 10/17/14 [employer] Supervisor Relationship Specialty Start Date End Date Jose G Harrington PA-C [address] [place] [address] PCP - General Family Medicine 01/27/17 Lamonte Toney MD Home Care Provider Orthopedics 10/17/14 Francis De La O MD Referring Internal Medicine 10/17/14 [employer] Supervisor Relationship Specialty Start Date End Date Jose G Harrington PA-C [address] [place] [address] PCP - General Family Medicine 01/27/17 Lamonte Toney MD Home Care Provider Orthopedics 10/17/14 Francis De La O MD Referring Internal Medicine 10/17/14 [employer] Supervisor Relationship Specialty Start Date End Date Jose G Harrington PA-C [address] [place] [address] PCP - General Family Medicine 01/27/17 Lamonte Toney MD Home Care Provider Orthopedics 10/17/14 Francis De La O MD Referring Internal Medicine 10/17/14 [employer] Supervisor Relationship Specialty Start Date End Date Jose G Harrington PA-C [address] [place] [address] PCP - General Family Medicine 01/27/17 Lamonte Toney MD Home Care Provider Orthopedics 10/17/14 Francis De La O MD Referring Internal Medicine 10/17/14 [employer] Supervisor Relationship Specialty Start Date End Date Jose G Harrington PA-C [address] [place] [address] PCP - General Family Medicine 01/27/17 Lamonte Toney MD Home Care Provider Orthopedics 10/17/14 Francis De La O MD Referring Internal Medicine 10/17/14 [employer] Supervisor Relationship Specialty Start Date End Date Jose G Harrington PA-C [address] [place] [address] PCP - General Family Medicine 01/27/17 Lamonte Toney MD Home Care Provider Orthopedics 10/17/14 Francis De La O MD Referring Internal Medicine 10/17/14 [employer] Supervisor Relationship Specialty Start Date End Date Jose G Harrington PA-C [address] [place] [address] PCP - General Family Medicine 01/27/17 Lamonte Toney MD Home Care Provider Orthopedics 10/17/14 Francis De La O MD Referring Internal Medicine 10/17/14 Potato Chip Processing Supervisor Relationship Specialty Start Date End Date Jose G Harrington PA-C [address] [place] [address] PCP - General Family Medicine 01/27/17 Lamonte Toney MD Home Care Provider Orthopedics 10/17/14 Francis De La O MD Referring Internal Medicine 10/17/14 Potato Chip Processing Supervisor Relationship Specialty Start Date End Date Jose G Harrington PA-C [address] [place] [address] PCP - General Family Medicine 01/27/17 Lamonte Toney MD Home Care Provider Orthopedics 10/17/14 Francis De La O MD Referring Internal Medicine 10/17/14 Potato Chip Processing Supervisor Relationship Specialty Start Date End Date Jose G Harrington PA-C [address] [place] [address] PCP - General Family Medicine 01/27/17 Lamonte Toney MD Home Care Provider Orthopedics 10/17/14 Francis De La O MD Referring Internal Medicine 10/17/14 Potato Chip Processing Supervisor Relationship Specialty Start Date End Date Jose G Harrington PA-C [address] [place] [address] PCP - General Family Medicine 01/27/17 Lamonte Toney MD Home Care Provider Orthopedics 10/17/14 Francis De La O MD Referring Internal Medicine 10/17/14 Potato Chip Processing Supervisor Relationship Specialty Start Date End Date Jose G Harrington PA-C [address] [place] [address] PCP - General Family Medicine 01/27/17 Lamonte Toney MD Home Care Provider Orthopedics 10/17/14 Francis De La O MD Referring Internal Medicine 10/17/14 Potato Chip Processing Supervisor Relationship Specialty Start Date End Date Jose G Harrington PA-C [address] [place] [address] PCP - General Family Medicine 01/27/17 Lamonte Toney MD Home Care Provider Orthopedics 10/17/14 Francis De La O MD Referring Internal Medicine 10/17/14 Potato Chip Processing Supervisor Relationship Specialty Start Date End Date Jose G Harrington PA-C [address] [place] [address] PCP - General Family Medicine 01/27/17 Lamonte Toney MD Home Care Provider Orthopedics 10/17/14 Francis De La O MD Referring Internal Medicine 10/17/14 Potato Chip Processing Supervisor Relationship Specialty Start Date End Date Tasha Deutsch POURER.DIRECTOR HR COMMUNICATIONS [address] [place] [address] PCP - General Family Medicine 04/05/24 Lamonte Toney MD Home Care Provider Orthopedics 10/17/14 Francis De La O MD Referring Internal Medicine 10/17/14 Breann Schmitz APRN.DIRECTOR HR COMMUNICATIONS [address] [place] [address] Ambulance Assistant Family Medicine 03/19/24 Tasha Deutsch POURER.DIRECTOR HR COMMUNICATIONS [address] [facility] [place] [address] Ambulance Assistant Family [facility] 03/19/24 Potato Chip Processing Supervisor Relationship Specialty Start Date End Date Tasha Deutsch POURER.DIRECTOR HR COMMUNICATIONS [address] [place] [address] PCP - General Family Medicine 04/05/24 Lamonte Toney MD Home Care Provider Orthopedics 10/17/14 Francis De LaO MD Referring Internal Medicine 10/17/14 Breann Schmitz, POURER.DIRECTOR HR COMMUNICATIONS [address] [place] [address] Ambulance Assistant [facility] 03/19/24 Tasha Deutsch POURER.DIRECTOR HR COMMUNICATIONS [address] [place] [address] [facility] [employer] Processing Supervisor Relationship Specialty Start Date End Date Tasha Deutsch, POURER.DIRECTOR HR COMMUNICATIONS [address] [place] [address] PCP - General Family Medicine 04/05/24 Lamonte Toney MD Home Care Provider Orthopedics 10/17/14 Francis De La O MD Referring Internal Medicine 10/17/14 Breann Schmitz, POURER.DIRECTOR HR COMMUNICATIONS [address] [place] [address] Ambulance Assistant Family Medicine 03/19/24 Tasha Deutsch, POURER.DIRECTOR HR COMMUNICATIONS [address] [facility] [place] [address] Ambulance Assistant Family Medicine 03/19/24 Potato Chip Processing Supervisor Relationship Specialty Start Date End Date Tasha Deutsch, POURER.DIRECTOR HR COMMUNICATIONS [address] [facility] [place] [address] PCP - General Family Medicine 04/05/24 Lamonte Toney MD Home Care Provider Orthopedics 10/17/14 Francis De La O MD Referring Internal Medicine 10/17/14 Breann Schmitz, POURER.DIRECTOR HR COMMUNICATIONS [address] [place] [address] Ambulance Assistant Family [facility] 03/19/24 Tasha Deutsch, POURER.DIRECTOR HR COMMUNICATIONS [address] [place] [address] Ambulance Assistant Family [facility] 03/19/24 Potato Chip Processing Supervisor Relationship Specialty Start Date End Date Tasha Deutsch, POURER.DIRECTOR HR COMMUNICATIONS [address] [facility] [place] [address] PCP - General Family Medicine 04/05/24 Lamonte Toney MD Home Care Provider Orthopedics 10/17/14 Francis De La O MD Referring Internal Medicine 10/17/14 Breann Schmitz, POURER.DIRECTOR HR COMMUNICATIONS [address] [place], [place] [address] [facility] 03/19/24 Tasha Deutsch POURER.DIRECTOR HR COMMUNICATIONS [address] [facility] [place] [address] [facility] 03/19/24 Team Status: Active Member Role Status Dates Tasha Duetsch , FIELD SEISMOLOGIST Primary Care Provider Active Team Status: Inactive Member Role Status Dates Dr. Ricki Reyes MD Emergency Provider Active S tart: August 16, 2024 End: August 16, 2024 Tasha Deutsch , FIELD SEISMOLOGIST Primary Care Provider Active Start: August 16, 2024 End: August 16, 2024 Team Status: Active Member Role Status Dates Tasha Deutsch , FIELD SEISMOLOGIST Primary Care Provider Active Start: August 18, [...] End: August 16, 2024 Tasha Suppsamantha , FIELD SEISMOLOGIST Primary Care Provider Active Start: August 16, 2024 End: August 16, 2024 Team Status: Inactive Member Role Status Dates Tasha Deutsch , FIELD SEISMOLOGIST Primary Care Provider Active Start: August 18, [...] August 18, 2024 End: August 22, 2024 sIa Cruz MD Other Provider Active Start : [...] Member Role Status Dates Tasha Deutsch , FIELD SEISMOLOGIST Primary Care Provider Active Start: August 19, [...] Member Role Status Dates Tasha Deutsch , FIELD SEISMOLOGIST Primary Care Provider Active Start: August 20, [...] Member Role Status Dates Tasha Deutsch , FIELD SEISMOLOGIST Primary Care Provider Active Start: August 21, 2024 Dr. Fawad Cordon , Emergency Provider Active Start: August 21, 2024 Dr. Mara Mar DO Admit Provider Active Start : August 21, 2024 Dr. Mara Mar DO Attending Provider Active S tart: August 21, 2024 Dr. Mara aMr DO Other Provider Active Start : August 21, 2024 Harley Nunez MD Other Provider Active Start: [place] 2024 Dr. Liu Woody MD Other Provider [...] Other Provider Active Start: August 21, 2024 Lcu Machuca MD Other Provider Active Start: August [...] Harley Nunez MD Other Provider Active Start: [place]j 2024 Dr. Liu Woody MD Other Provider Active Start: August 22, 2024 Isa Curz MD Other Provider Active Start : August [...] Other Provider Active Start: August 22, 2024 Potato Chip Processing Supervisor Relationship Specialty Start Date End Date Tasha Deutsch POURER.DIRECTOR HR COMMUNICATIONS [address] [place] [address] PCP - General Family Medicine 04/05/24 Lamonte Toney MD Home Care Provider Orthopedics 10/17/14 Francis De La O MD Referring Internal Medicine 10/17/14 Potato Chip Processing Supervisor Relationship Specialty Start Date End Date Tasha Deutsch POURER.DIRECTOR HR COMMUNICATIONS [address] [place] [address] PCP - General Family Medicine 04/05/24 Lamonte Toney MD Home Care Provider Orthopedics 10/17/14 Francis De La O MD Referring Internal Medicine 10/17/14 Potato Chip Processing Supervisor Relationship Specialty Start Date End Date Tasha Deutsch POURER.DIRECTOR HR COMMUNICATIONS [address] [place] [address] PCP - General Family Medicine 04/05/24 Lamonte Toney MD Home Care Provider Orthopedics 10/17/14 Francis De La O MD Referring Internal Medicine 10/17/14 Potato Chip Processing Supervisor Relationship Specialty Start Date End Date Tasha Deutsch, POURER.DIRECTOR HR COMMUNICATIONS [address] [facility] [place], [place] [address] PCP - General Family Medicine 04/05/24 Behzad Dorado [address] [place] [id number] Referring Internal Medicine 09/17/24 Tasha Deutsch, POURER.DIRECTOR HR COMMUNICATIONS [address] [facility] [place], [place] [address] Home Care Provider Family Medicine 09/17/24 Potato Chip Processing Supervisor Relationship Specialty Start Date End Date Tasha Deutsch, POURER.DIRECTOR HR COMMUNICATIONS [address] [facility] [place], [place] [address] PCP - General Family Medicine 04/05/24 Behzad Dorado [address] [place] [address] Referring Internal Medicine 09/17/24 Tasha Deutsch, POURER.DIRECTOR HR COMMUNICATIONS [address] [facility] [place] [address] Home Care Provider Family Medicine 09/17/24 Team [...] Active Member Role Status Dates Tasha Deutsch FIELD SEISMOLOGIST Primary Care Provider Active Start: August 23, 2024 Dr. Behzad Dorado DO Admit Provider Active Start: August 23, 2024 Dr. Behzad Dorado , DO Attending Provider Act basilio Start: August 23, 2024 Dr. Behzad Dorado , DO Other Provider Active Start: August 23, 2024 Team Status: Active Member Role Status Dates Tasha Deutsch , FIELD SEISMOLOGIST Primary Care Provider Active Start: August 26, 2024 Dr. Behzad Dorado , DO Admit Provider Active Start: August 26, 2024 Dr. Behzad Dorado , DO Attending Provider Act basilio Start: August 26, 2024 Dr. Behzad Dorado , DO Other Provider Active Start: August 26, 2024 Team Status: Active Member Role Status Dates Tasha Deutsch , FIELD SEISMOLOGIST Primary Care Provider Active Start: August 30, 2024 Dr. Behzad Dorado , DO Admit Provider Active Start: August 30, 2024 Dr. Behzad Dorado , DO Attending Provider Act basilio Start: August 30, 2024 Dr. Behzad Dorado , DO Other Provider Active Start: August 30, 2024 Team Status: Active Member Role Status Dates Tasha Deutsch , FIELD SEISMOLOGIST Primary Care Provider Active Start: August 31, 2024 Dr. Behzad Dorado , DO Admit Provider Active Start: August 31, 2024 Dr. Behzad Dorado , DO Attending Provider Act basilio Start: August 31, 2024 Dr. Behzad Dorado , DO Other Provider Active Start: August 31, 2024 Team Status: Active Member Role Status Dates Tasha Deutsch , FIELD SEISMOLOGIST Primary Care Provider Active Start: September 02, 2024 Dr. Behzad Dorado , DO Admit Provider Active Start: September 02, 2024 Dr. Behzad Dorado , DO Attending Provider Act basilio Start: September 02, 2024 Dr. Behzad Dorado , DO Other Provider Active Start: September 02, 2024 Team Status: Active Member Role Status Dates Tasha Deutsch , FIELD SEISMOLOGIST Primary Care Provider Active Start: September 05, 2024 Dr. Behzad Dorado , DO Admit Provider Active Start: September 05, 2024 Dr. Behzad Dorado , DO Attending Provider Act basilio Start: September 05, 2024 Dr. Behzad Dorado , DO Other Provider Active Start: September 05, 2024 Team Status: Active Member Role Status Dates Tasha Deutsch , FIELD SEISMOLOGIST Primary Care Provider Active Start: September 07, 2024 Dr. Behzad Dorado , DO Admit Provider Active Start: September 07, 2024 Dr. Behzad Dorado , DO Attending Provider Act basilio Start: September 07, 2024 Dr. Behzad Dorado , DO Other Provider Active Start: September 07, 2024 Team Status: Active Member Role Status Dates Tasha Deutsch , FIELD SEISMOLOGIST Primary Care Provider Active Start: September 09, 2024 Dr. Behzad Dorado , DO Admit Provider Active Start: September 09, 2024 Dr. Behzad Dorado , DO Attending Provider Act basilio Start: September 09, 2024 Dr. Behzad Dorado , DO Other Provider Active Start: September 09, 2024 Team Status: Active Member Role Status Dates Tasha Deutsch , FIELD SEISMOLOGIST Primary Care Provider Active Start: September 13, 2024 Dr. Behzad Dorado , Admit Provider Active Start: September 13, 2024 Dr. Behzad Dorado , DO Attending Provider Act basilio Start: September 13, 2024 Dr. Behzad Dorado , Other Provider Active Start: September 13, 2024 Team Status: Active Member Role Status Dates Tasha Deutsch , FIELD SEISMOLOGIST Primary Care Provider Active Start: September 14, 2024 Dr. Behzad Dorado , Admit Provider Active Start: September 14, 2024 Dr. Behzad Dorado , DO Attending Provider Act basilio Start: September 14, 2024 Dr. Behzad Dorado , Other Provider Active Start: September 14, 2024 Team Status: Active Member Role Status Dates Tasha Deutsch , FIELD SEISMOLOGIST Primary Care Provider Active Start: September 16, 2024 Dr. Behzad Dorado , DO Admit Provider Active Start: September 16, 2024 Dr. Behzad Dorado , DO Attending Provider Act bsailio Start: September 16, 2024 Dr. Behzad Dorado , DO Other Provider Active Start: September 16, 2024 Potato Chip Processing Supervisor Relationship Specialty Start Date End Date Tasha Deutsch APRN.DIRECTOR HR COMMUNICATIONS [address] [place] [address] PCP - General Family Medicine 04/05/24 Behzad Dorado [address] [place] [address] Referring Internal Medicine 09/17/24 Tasha Deutsch APRN.DIRECTOR HR COMMUNICATIONS [address] [facility] [place] [address] Home Care Provider Family Medicine 09/17/24 Mack Brito, JESIKA [address] [place], [place] [id number] Fiscal Services Manager Post Acute Care 09/20/24 Potato Chip Processing Supervisor Relationship Specialty Start Date End Date Tasha Deutsch POURER.DIRECTOR HR COMMUNICATIONS [address] [facility] [place] [address] PCP - General Family Medicine 04/05/24 Behzad Dorado [address] [place] [address] Referring Internal Medicine 09/17/24 Tasha Deutsch APRN.DIRECTOR HR COMMUNICATIONS [address] [facility] [place] [address] Home Care Provider Family Medicine 09/17/24 Mack Brito RN [address] [place], [place] [id number] Fiscal Services Manager Post Acute Care 09/20/24 Potato Chip Processing Supervisor Relationship Specialty Start Date End Date Tasha Deutsch POURER.DIRECTOR HR COMMUNICATIONS [address] [facility] [place] [address] PCP - General Family Medicine 04/05/24 Behzad Dorado [address] [facility] [place] [address] Referring Internal Medicine 09/17/24 Tasha Deutsch POURER.DIRECTOR HR COMMUNICATIONS [address] [facility] [place] [address] Home Care Provider Family Medicine 09/17/24 Mack Brito, JESIKA [address] [place], [place] [address] Fiscal Services Manager Post Acute Care 09/20/24 Potato Chip Processing Supervisor Relationship Specialty Start Date End Date Tasha Deutsch POURER.DIRECTOR HR COMMUNICATIONS [address] [facility] [place] [address] PCP - General Family Medicine 04/05/24 Behzad Dorado [address] [place] [phone] Referring Internal Medicine 09/17/24 Tasha Deutsch POURER.DIRECTOR HR COMMUNICATIONS [address] [facility] [place] [address] Home Care Provider Family Medicine 09/17/24 Mack Brito RN [address] [place], [place] [phone] Fiscal Services Manager Post Acute Care 09/20/24 Potato Chip Processing Supervisor Relationship Specialty Start Date End Date Tasha Detusch POURER.DIRECTOR HR COMMUNICATIONS [address] [facility] [place] [address] PCP - General Family Medicine 04/05/24 Behzad Dorado [address] [place] [phone] Referring Internal Medicine 09/17/24 Tasha Deutsch POURER.DIRECTOR HR COMMUNICATIONS [address] [facility] [place] [address] Home Care Provider Family Medicine 09/17/24 Mack Brito, JESIKA [address] [place], [place] [id number] Fiscal Services Manager Post Acute Care 09/20/24 Potato Chip Processing Supervisor Relationship Specialty Start Date End Date Tasha Deutsch POURER.DIRECTOR HR COMMUNICATIONS [address] [facility] [place] [address] PCP - General Family Medicine 04/05/24 Behzad Dorado [address] [place] [address] Referring Internal Medicine 09/17/24 Tasha Deutsch POURER.DIRECTOR HR COMMUNICATIONS [address] [facility] [place] [address] Home Care Provider Family Medicine 09/17/24 Mack Brito, JESIKA [address] [place], [place] [id number] Fiscal Services Manager Post Acute Care 09/20/24 Potato Chip Processing Supervisor Relationship Specialty Start Date End Date Tasha Deutsch POURER.DIRECTOR HR COMMUNICATIONS [address] [facility] [place] [address] PCP - General Family Medicine 04/05/24 Behzad Dorado [address] [place] [phone] Referring Internal Medicine 09/17/24 Tasha Deutsch POURER.DIRECTOR HR COMMUNICATIONS [address] [facility] [place] [address] Home Care Provider Family Medicine 09/17/24 Mack Brito, JESIKA [address] [place], [place] [id number] Fiscal Services Manager Post Acute Care 09/20/24 Potato Chip Processing Supervisor Relationship Specialty Start Date End Date Tasha Deutsch POURER.DIRECTOR HR COMMUNICATIONS [address] [facility] [place] [address] PCP - General Family Medicine 04/05/24 Behzad Dorado [address] [place] [address] Referring Internal Medicine 09/17/24 Tasha Deutsch, POURER.DIRECTOR HR COMMUNICATIONS [address] [facility] [place] [address] Home Care Provider Family Medicine 09/17/24 Mack Brito RN [address] [place], [place] [id number] Fiscal Services Manager Post Acute Care 09/20/24 Potato Chip Processing Supervisor Relationship Specialty Start Date End Date Tasha Deutsch POURER.DIRECTOR HR COMMUNICATIONS [address] [facility] [place] [address] PCP - General Family Medicine 04/05/24 Behzad Dorado [address] [place] [address] Referring Internal Medicine 09/17/24 Tasha Deutsch, POURER.DIRECTOR HR COMMUNICATIONS [address] [facility] [place] [address] Home Care Provider Family Medicine 09/17/24 Mack Brito RN [address] [place] [address] Fiscal Services Manager Post Acute Care 09/20/24 Potato Chip Processing Supervisor Relationship Specialty Start Date End Date Tasha Deutsch, POURER.DIRECTOR HR COMMUNICATIONS [address] [facility] [place] [address] PCP - General Family Medicine 04/05/24 Behzad Dorado [address] [place] [address] Referring Internal Medicine 09/17/24 Tasha Deutsch, POURER.DIRECTOR HR COMMUNICATIONS [address] [facility] [place] [address] Home Care Provider Family Medicine 09/17/24 Mack Brito, JESIKA [address] [place] [address] Fiscal Services Manager Post Acute Care 09/20/24 Potato Chip Processing Supervisor Relationship Specialty Start Date End Date Tasha Deutsch POURER.DIRECTOR HR COMMUNICATIONS [address] [facility] [place] [address] PCP - General Family Medicine 04/05/24 Behzad Dorado [address] [place] [address] Referring Internal Medicine 09/17/24 Tasha Deutsch POURER.DIRECTOR HR COMMUNICATIONS [address] [facility] [place] [address] Home Care Provider Family Medicine 09/17/24 Mack Brito RN [address] [place] [address] Fiscal Services Manager Post Acute Care 09/20/24 Team Status: Active [...] October 04, 2024 End: October 04, 2024 Potato Chip Processing Supervisor Relationship Specialty Start Date End Date Tasha Deutsch, POURER.DIRECTOR HR COMMUNICATIONS [address] [facility] [place] [address] PCP - General Family Medicine 04/05/24 Behzad Dorado [address] [place] [address] Referring Internal Medicine 09/17/24 Tasha Deutsch, POURER.DIRECTOR HR COMMUNICATIONS [address] [facility] [place] [address] Home Care Provider Family Medicine 09/17/24 Mack Brito, JESIKA [address] [place], [place] [id number] Fiscal Services Manager Post Acute Care 09/20/24 Potato Chip Processing Supervisor Relationship Specialty Start Date End Date Tasha Deutsch POURER.DIRECTOR HR COMMUNICATIONS [address] [facility] [place] [address] PCP - General Family Medicine 04/05/24 Behzad Dorado [address] [place] [address] Referring Internal Medicine 09/17/24 Tasha Deutsch, POURER.DIRECTOR HR COMMUNICATIONS [address] [facility] [place] [address] Home Care Provider Family Medicine 09/17/24 Mack Brito, JESIKA [address] [place], [place] [id number] Fiscal Services Manager Post Acute Care 09/20/24 Potato Chip Processing Supervisor Relationship Specialty Start Date End Date Tasha Deutsch, POURER.DIRECTOR HR COMMUNICATIONS [address] [facility] [place] [address] PCP - General Family Medicine 04/05/24 Behzad Dorado [address] [place] [address] Referring Internal Medicine 09/17/24 Tasha Deutsch POURER.DIRECTOR HR COMMUNICATIONS [address] [facility] [place] [address] Home Care Provider Family Medicine 09/17/24 Mack Brito RN [address] [place], [place] [phone] Fiscal Services Manager Post Acute Care 09/20/24 Potato Chip Processing Supervisor Relationship Specialty Start Date End Date Tasha Deutsch POURER.DIRECTOR HR COMMUNICATIONS [address] [facility] [place] [address] PCP - General Family Medicine 04/05/24 Behzad Dorado [address] [place] [address] Referring Internal Medicine 09/17/24 Tasha Deutsch POURER.DIRECTOR HR COMMUNICATIONS [address] [facility] [place] [address] Home Care Provider Family Medicine 09/17/24 Mack Brito RN [address] [place], [place] [phone] Fiscal Services Manager Post Acute Care 09/20/24 Potato Chip Processing Supervisor Relationship Specialty Start Date End Date Tasha Deutsch POURER.DIRECTOR HR COMMUNICATIONS [address] [facility] [place] [address] PCP - General Family Medicine 04/05/24 Behzad Dorado [address] [place] [address] Referring Internal Medicine 09/17/24 Tasha Deutsch POURER.DIRECTOR HR COMMUNICATIONS [address] [facility] [place] [address] Home Care Provider Family Medicine 09/17/24 Mack Brito, JESIKA [address] [place] [address] Fiscal Services Manager Post Acute Care 09/20/24 Potato Chip Processing Supervisor Relationship Specialty Start Date End Date Tasha Deutsch APRN.DIRECTOR HR COMMUNICATIONS [address] [place], [place] [address] PCP - General Family Medicine 04/05/24 Behzad Dorado [address] [place] [address] Referring Internal Medicine 09/17/24 Tasha Deutsch APRN.DIRECTOR HR COMMUNICATIONS [address] [place], [place] [id number] Home Care Provider Family Medicine 09/17/24 Mack Brito, JESIKA [address] [place] [address] Fiscal Services Manager Post Acute Care 09/20/24 Team Status: Active [...] Member Role/Relationship Status Dates Tasha Suppsamantha , FIELD SEISMOLOGIST Primary Care Provider Active Start: August 19, 2024 Dr. Cricket Leyva MD Attending Provider Active Start: August 19, 2024 Team Status: Active Member Role/Relationship Status Dates Tasha Suppan , FIELD SEISMOLOGIST Primary Care Provider Active Start: August 19, [...] Harley Nunez MD Other Provider Active Start: Nj 2024 Dr. Liu Woody MD Other Provider [...] Harley Nunez MD Other Provider Active Start: [place]j 2024 Dr. Liu Woody MD Other Provider [...] Member Role/Relationship Status Dates Tasha Deutsch , FIELD SEISMOLOGIST Primary Care Provider Active Start: August 22, [...] Harley Nunez MD Other Provider Active Start: [facility] 2024 Dr. Liu Woody MD Other Provider [...] Member Role/Relationship Status Dates Tasha Deutsch , FIELD SEISMOLOGIST Primary Care Provider Active Start: August 22, 2024 End: September 19, 2024 Dr. Behzad Dorado , DO Admit Provider Active Start: August 22, 2024 End: September 19, 2024 Dr. Behzad Dorado , DO Attending Provider Act basilio Start: August 22, 2024 End: September 19, 2024 Team Status: Active Member Role/Relationship Status Dates Tasha Deutsch , FIELD SEISMOLOGIST Primary Care Provider Active Start: August 23, 2024 Dr. Behzad Dorado DO Admit Provider Active Start: August 23, 2024 Dr. Behzad Dorado , DO Attending Provider Act basilio Start: August 23, 2024 Dr. Behzad Dorado DO Other Provider Active Start: August 23, 2024 Team Status: Active Member Role/Relationship Status Dates Tasha Deutsch , FIELD SEISMOLOGIST Primary Care Provider Active Start: August 26, 2024 Dr. Behzad Dorado , Admit Provider Active Start: August 26, 2024 Dr. Behzad Dorado , DO Attending Provider Act basilio Start: August 26, 2024 Dr. Behzad Dorado , DO Other Provider Active Start: August 26, 2024 Team Status: Active Member Role/Relationship Status Dates Tasha Deutsch , FIELD SEISMOLOGIST Primary Care Provider Active Start: August 30, 2024 Dr. Behzad Dorado , DO Admit Provider Active Start: August 30, 2024 Dr. Behzad Dorado , DO Attending Provider Act basilio Start: August 30, 2024 Dr. Behzad Dorado , DO Other Provider Active Start: August 30, 2024 Team Status: Active Member Role/Relationship Status Dates Tasha Suppan , FIELD SEISMOLOGIST Primary Care Provider Active Start: August 31, 2024 Dr. Behzad Dorado DO Admit Provider Active Start: August 31, 2024 Dr. Behzad Dorado , DO Attending Provider Act basilio Start: August 31, 2024 Dr. Behzad Dorado , DO Other Provider Active Start: August 31, 2024 Team Status: Active Member Role/Relationship Status Dates Tasha Deutsch , FIELD SEISMOLOGIST Primary Care Provider Active Start: September 02, 2024 Dr. Behzad Dorado , DO Admit Provider Active Start: September 02, 2024 Dr. Behzad Dorado , DO Attending Provider Act basilio Start: September 02, 2024 Dr. Behzad Dorado , DO Other Provider Active Start: September 02, 2024 Team Status: Active Member Role/Relationship Status Dates Tasha Suppan , FIELD SEISMOLOGIST Primary Care Provider Active Start: September 05, 2024 Dr. Behzad Dorado , DO Admit Provider Active Start: September 05, 2024 Dr. Behzad Dorado , DO Attending Provider Act basilio Start: September 05, 2024 Dr. Behzad Dorado , DO Other Provider Active Start: September 05, 2024 Team Status: Active Member Role/Relationship Status Dates Tasha Deutsch , FIELD SEISMOLOGIST Primary Care Provider Active Start: September 07, 2024 Dr. Behzad Dorado , DO Admit Provider Active Start: September 07, 2024 Dr. Behzad Dorado , DO Attending Provider Act basilio Start: September 07, 2024 Dr. Behzad Dorado , DO Other Provider Active Start: September 07, 2024 Team Status: Active Member Role/Relationship Status Dates Tasha Deutsch , FIELD SEISMOLOGIST Primary Care Provider Active Start: September 09, 2024 Dr. Behzad Dorado , DO Admit Provider Active Start: September 09, 2024 Dr. Behzad Dorado , DO Attending Provider Act basilio Start: September 09, 2024 Dr. Behzad Dorado , DO Other Provider Active Start: September 09, 2024 Team Status: Active Member Role/Relationship Status Dates Tasha Suppan , FIELD SEISMOLOGIST Primary Care Provider Active Start: September 13, 2024 Dr. Behzad Dorado , DO Admit Provider Active Start: September 13, 2024 Dr. Behzad Dorado , DO Attending Provider Act basilio Start: September 13, 2024 Dr. Behzad Dorado , DO Other Provider Active Start: September 13, 2024 Team Status: Active Member Role/Relationship Status Dates Tasha Suppan , FIELD SEISMOLOGIST Primary Care Provider Active Start: September 14, 2024 Dr. Behzad Dorado , Admit Provider Active Start: September 14, 2024 Dr. Behzad Dorado DO Attending Provider Act basilio Start: September 14, 2024 Dr. Behzad Dorado , DO Other Provider Active Start: September 14, 2024 Team Status: Active Member Role/Relationship Status Dates Tasha Deutsch , FIELD SEISMOLOGIST Primary Care Provider Active Start: September 16, 2024 Dr. Behzad Dorado , Admit Provider Active Start: September 16, 2024 Dr. Behzad Dorado DO Attending Provider Act basilio Start: September 16, 2024 Dr. Behzad Dorado DO Other Provider Active Start: September 16, 2024 Team Status: Active Member Role/Relationship Status Dates Tasha Suppan , FIELD SEISMOLOGIST Primary Care Provider Active Start: September 18, 2024 Dr. Behzad Dorado DO Admit Provider Active Start: September 18, 2024 Dr. Behzad Dorado DO Attending Provider Act basilio Start: September 18, 2024 Dr. Behzad Dorado DO Other Provider Active Start: September 18, 2024 Team Status: Inactive Member Role/Relationship Status Dates Tasha Suppan , FIELD SEISMOLOGIST Primary Care Provider Active Start: October 04, 2024 End: October 04, 2024 Tasha Suppan , FIELD SEISMOLOGIST Referring Provider Active Start: October 04, 2024 End: October 04, 2024 ANDIE Serrato Attending Provider Active S tart: October 04, 2024 End: October 04, 2024 Team Status: Inactive Member Role/Relationship Status Dates Tasha Suppan , FIELD SEISMOLOGIST Primary Care Provider Active Start: October 12, 2024 End: October 12, 2024 Tasha Suppan , FIELD SEISMOLOGIST Referring Provider Active Start: October 12, 2024 End: October 12, 2024 Dr. Cricket Leyva MD Attending Provider Active Start: October 12, 2024 End: October 12, 2024 Potato Chip Processing Supervisor Relationship Specialty Start Date End Date Tasha Deutsch APRN.CNP [address] [place] [address] PCP - General Family Medicine 04/05/24 Behzad Dorado [address] [place] [address] Referring Internal Medicine 09/17/24 Tasha Deutsch, POURER.DIRECTOR HR COMMUNICATIONS [address] [facility] [place] [address] Home Care Provider Family Medicine 09/17/24 Mack Brito RN [address] [place], [place] [id number] Fiscal Services Manager Post Acute Care 09/20/24 Potato Chip Processing Supervisor Relationship Specialty Start Date End Date Tasha Deutsch POURER.DIRECTOR HR COMMUNICATIONS [address] [facility] [place] [address] PCP - General Family Medicine 04/05/24 Behzad Dorado [address] [place] [phone] Referring Internal Medicine 09/17/24 Tasha Deutsch POURER.DIRECTOR HR COMMUNICATIONS [address] [facility] [place] [address] Home Care Provider Family Medicine 09/17/24 Mack Brito RN [address] [place], [place] [phone] Fiscal Services Manager Post Acute Care 09/20/24 Team Status: Inactive Member Role/Relationship Status Dates GARFIELD Maldonado Primary Care Provider Active Start: October 18, 2024 End: October 18, 2024 Dr. Mihai Woods DO Emergency Provider Active Start: October 18, 2024 End: October 18, 2024 Potato Chip Processing Supervisor Relationship Specialty Start Date End Date Tasha Deutsch POURER.DIRECTOR HR COMMUNICATIONS [address] [facility] [place] [address] PCP - General Family Medicine 04/05/24 Behzad Dorado [address] [place] [phone] Referring Internal Medicine 09/17/24 Tasha Deutsch POURER.DIRECTOR HR COMMUNICATIONS [address] [facility] [place] [address] Home Care Provider Family Medicine 09/17/24 Mack Brito, JESIKA [address] [facility], [place] [id number] Fiscal Services Manager Post Acute Care 09/20/24 10/17/24 Potato Chip Processing Supervisor Relationship Specialty Start Date End Date Tasha Deutsch POURER.DIRECTOR HR COMMUNICATIONS [address] [facility] [place] [address] PCP - General Family Medicine 04/05/24 Behzad Dorado [address] [place] [address] Referring Internal Medicine 09/17/24 Tasha Deutsch POURER.DIRECTOR HR COMMUNICATIONS [address] [facility] [place] [address] Home Care Provider Family Medicine 09/17/24 Potato Chip Processing Supervisor Relationship Specialty Start Date End Date Tasha Deutsch POURER.DIRECTOR HR COMMUNICATIONS [address] [facility] [place] [address] PCP - General Family Medicine 04/05/24 Behzad Dorado [address] [place] [address] Referring Internal Medicine 09/17/24 Tasha Deutsch POURER.DIRECTOR HR COMMUNICATIONS [address] [facility] [place] [address] Home Care Provider Family Medicine 09/17/24 Potato Chip Processing Supervisor Relationship Specialty Start Date End Date Tasha Deutsch POURER.DIRECTOR HR COMMUNICATIONS [address] [facility] [place] [address] PCP - General Family Medicine 04/05/24 Behzad Dorado [address] [place] [phone] Referring Internal Medicine 09/17/24 Tasha Deutsch, POURER.DIRECTOR HR COMMUNICATIONS [address] [facility] [place] [address] Home Care Provider Family Medicine 09/17/24 Potato Chip Processing Supervisor Relationship Specialty Start Date End Date Tasha Deutsch POURER.DIRECTOR HR COMMUNICATIONS [address] [place] [address] PCP - General Family Medicine 04/05/24 Behzad Dorado [address] [place] [phone] Referring Internal Medicine 09/17/24 Tasha Deutsch, POURER.DIRECTOR HR COMMUNICATIONS [address] [place] [address] Home Care Provider Family Medicine 09/17/24 Potato Chip Processing Supervisor Relationship Specialty Start Date End Date [facility] Cardiac Respiration, Other [address] [facility] [place] [address] PCP - General 10/20/24 Potato Chip Processing Supervisor Relationship Specialty Start Date End Date Tasha Deutsch POURER.DIRECTOR HR COMMUNICATIONS [address] [place] [address] PCP - General Family Medicine 04/05/24 Behzad Dorado [address] [place] [phone] Referring Internal Medicine 09/17/24 Tasha Deutsch POURER.DIRECTOR HR COMMUNICATIONS [address] [place] [address] Home Care Provider Family Medicine 09/17/24 Potato Chip Processing Supervisor Relationship Specialty Start Date End Date Tasha Deutsch POURER.DIRECTOR HR COMMUNICATIONS [address] [place] [address] PCP - General Family Medicine 04/05/24 Behzad Dorado [address] [place] [phone] Referring Internal Medicine 09/17/24 Tasha Deutsch POURER.DIRECTOR HR COMMUNICATIONS [address] [place] [address] Home Care Provider Family Medicine 09/17/24 Potato Chip Processing Supervisor Relationship Specialty Start Date End Date Tasha Deutsch POURER.DIRECTOR HR COMMUNICATIONS [address] [place] [address] PCP - General Family Medicine 04/05/24 Behzad Dorado [address] [facility] [place] [phone] Referring Internal Medicine 09/17/24 Tasha Deutsch, POURER.DIRECTOR HR COMMUNICATIONS [address] [place] [address] Home Care Provider Family Medicine 09/17/24 Mack Brito, RN [address] [place] [address] Fiscal Services Manager Post Acute Care 09/20/24 10/17/24 Goals (unrecognized [...] 1 g, Intravenous, Administer over 15 Minutes, BURNER TENDER TO PROCEDURE, 1 dose, Starting on Fri11/12/24 [...] BE BASED ON THE PRIMARY CLINICAL RECORDS. [facility]. provides no warranty or guarantee of the accuracy or completeness of information in this document.
--- NOTE | 2025-02-20 08:10 | NURSING ---
NIHSS unable to be fully completed at this time, as pt unable to fully follow commands.
--- NOTE | 2025-02-20 09:15 | NURSING ---
NIHSS unable to be fully completed at this time, as pt unable to fully follow commands.
--- NOTE | 2025-02-20 11:17 | PCM.HOSP.N ---
Hospitalist Note Met with patient's son and daughter, daughter is medical power of sporting goods sales associate. Discussed patient's recent health complications as well as current stroke, after discussion they would like to proceed with DNR CC and hospice consult. Discussed with patient's nurse, hospice consult placed, comfort orders placed
--- NOTE | 2025-02-20 11:34 | STROKE.CONS ---
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 [facility]. Patient brought to [place] ER. CT brain shows right BORING MACHINE SET UP OPERATOR infarct. CTA head/neck shows new right BORING MACHINE SET UP OPERATOR occlusion. Patient admitted. On Asa/lipitor. Neurological examination shows aphasia, dysarthria, left hemiparesis, NIHSS 13 (?-2, LOC-2, LUE-3, LLE-3, aphas-2, dys-1). ASSESSMENT/PLAN: Acute right BORING MACHINE SET UP OPERATOR ischemic stroke, left BORING MACHINE SET UP OPERATOR occlusion post-stroke day #1 1) Stroke work-up completed. Stroke mechanism is cardioembolism due to Afib. Unfortunately, patient too high risk for AC given recent eliquis related ICH (likely amyloid angiopathy). Complete stroke orders (LDL, HgbA1c, swallow eval, PT/OT consults, etc). I do not need MRI as stroke is visible on CT/CTA. 2) Continue daily anti-platelet medication (Asa) 3) Continue vascular risk factor modification. On lipitor. 4) Recommend Lovenox SQ for DVT prophylaxis 5) Follow-up in outpatient neurology clinic. Outpatient eval for watchman. Will sign off, please call us with further stroke related questions. Primary team messaged recs on backline. 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 Patient's daughter and son at bedside report NH called sayying patient had decrease responsiveness and new left sided weakness. LKN per famiy was 02/19/25 (yesterday). Patient brought to [place] ER. CT brain shows right BORING MACHINE SET UP OPERATOR infarct. CTA head/neck shows new right BORING MACHINE SET UP OPERATOR occlusion. Patient admitted. On Asa/lipitor. 198/119. [facility] Medical History Dyslipidemia HTN (hypertension) Paroxysmal atrial fibrillation Chronic anticoagulation Thoracic kyphosis Cystitis Stroke/cerebrovascular accident CKD (chronic kidney disease) stage 4, GFR 15-29 ml/min History of atrial fibrillation Fe deficiency anemia Osteoarthritis Home Medications Medication Instructions Recorded Last Taken Type atorvastatin 40 mg tablet 40 mg feeding tube QHS cholesterol 10/12/24 Unknown History aspirin 81 mg chewable tablet 1 tab feeding tube DAILY 02/20/25 Unknown History (Aspirin Childrens) buspirone 5 mg tablet 5 mg PO BID 02/20/25 Unknown History buspirone 5 mg tablet 5 mg PO QHS 02/20/25 Unknown History cholecalciferol (vitamin D3) 25 50 mcg feeding tube DAILY 02/20/25 Unknown History mcg (1,000 unit) tablet lactose-reduced food-fiber 0.07 ml 02/20/25 Unknown History gram-1.5 kcal/mL liquid for tube feed (Isosource 1.5 Richard) melatonin 3 mg tablet 3 mg feeding tube QHS insomnia 02/20/25 Unknown History metoprolol tartrate 25 mg tablet 25 mg feeding tube BID 02/20/25 Unknown History Allergy/AdvReac Type Severity Reaction Status Date / Time adhesive tape Allergy Unknown Unknown Verified 02/20/25 05:16 sulfamethoxazole (From Allergy Unknown Unknown Verified 02/20/25 05:16 Bactrim) trimethoprim (From Bactrim) Allergy Unknown Unknown Verified 02/20/25 05:16 nitrofurantoin (From Allergy Rash Verified 02/20/25 05:16 Macrobid) [id number] Reductase AdvReac Unknown Unknown Verified 02/20/25 05:16 Inhibitor Family History Mother Cancer Hypertension CVA (cerebral vascular accident) Father Heart disease CVA (cerebral vascular accident) Brother Ischemic heart disease CVA (cerebral vascular accident) Sister Hypertension Diabetes Surgical History History of right hip replacement History of left hip replacement History of bilateral cataract extraction History of umbilical hernia repair History of esophagogastroduodenoscopy (EGD) History of colonoscopy History of bunionectomy of both great toes Hx of tonsillectomy Social History household members: [facility] Smoking Status: Never smoker alcohol intake: never substance use type: does not use Vital Signs Vital Signs Vital Signs: 02/20/25 05:09 02/20/25 05:13 02/20/25 05:38 Temperature 97.5 F L Temperature Source Temporal Pulse Rate 72 68 73 Respiratory Rate 18 18 25 H Blood Pressure 166/105 H 166/105 H 168/110 H Blood Pressure Mean 125 125 129 Blood Pressure Source Blood Pressure Position Blood Pressure Location Pulse Ox 97 95 94 Oxygen Delivery Method Room Air Room Air Room Air Oxygen Flow Rate (L/min) 02/20/25 05:46 02/20/25 06:09 02/20/25 06:30 Temperature Temperature Source Pulse Rate 70 70 Respiratory Rate 18 17 Blood Pressure 168/110 H 144/90 H Blood Pressure Mean 129 108 Blood Pressure Source Blood Pressure Position Blood Pressure Location Pulse Ox 100 99 Oxygen Delivery Method Room Air Room Air Nasal Cannula Oxygen Flow Rate (L/min) 2 02/20/25 06:36 02/20/25 07:00 02/20/25 07:15 Temperature 98.3 F Temperature Source Pulse Rate 72 70 77 Respiratory Rate 14 17 19 H Blood Pressure 152/114 H Blood Pressure Mean 126 Blood Pressure Source Blood Pressure Position Blood Pressure Location Pulse Ox 99 Oxygen Delivery Method Oxygen Flow Rate (L/min) 02/20/25 07:30 02/20/25 07:45 02/20/25 09:19 Temperature Temperature Source Pulse Rate 77 78 77 Respiratory Rate 20 H 22 H 16 Blood Pressure 172/104 H 198/119 H Blood Pressure Mean 126 145 Blood Pressure Source Monitor Blood Pressure Position Semi-Fowlers Blood Pressure Location Left Arm Pulse Ox 98 98 Oxygen Delivery Method Nasal Cannula Oxygen Flow Rate (L/min) 2 Weight Weight: 51.8 kg Body Mass Index (BMI) 20.9 Physical Exam Neuro Neuro Narrative: Neurological examination: General: The patient appears comfortable in no acute distress. Mental Status: The patient’s mental status was awake. Language shows aphasia. She reports he age as "32" and the month as "may". Cranial nerves: No visual complaints, and extra-ocular motion was intact. Face motion symmetric. There was moderate dysarthria. Motor: Left arm/leg weakness, unable to anti-gravity. Right arm and leg able to anti-gravity without drif.. Sensation: Deferred. Coordination: There was no gross dysmetria. Gait: deferred Lab / Micro Data 02/20/25 05:10 02/20/25 05:10 Labs: Laboratory Results - last 24 hr 02/20/25 05:10: WBC 7.9, RBC 4.01 L, Hgb 11.9 L, Hct 38.5, MCV 96.0, MCH 29.7, MCHC 30.9 L, RDW Std Deviation 48.0 H, RDW Coeff of Dalton 13.4, Plt Count 316, MPV 9.4, Immature Gran % (Auto) 0.300, Neut % (Auto) 66.4, Lymph % (Auto) 16.8 L, Denali % (Auto) 8.6, Eos % (Auto) 6.2 H, Baso % (Auto) 1.7 H, Absolute Neuts (auto) 5.2, Absolute Lymphs (auto) 1.32, Nucleated RBC % 0, PT 13.5, INR 1.0, APTT 25.9, Sodium 140, Potassium 4.4, Chloride 105, Carbon Dioxide 27.2, Anion Gap 8, BUN 25 H, Creatinine 0.89, Estim Creat Clear Calc 35.22 L, Est GFR (MDRD) Non-Af 63, BUN/Creatinine Ratio 28.1 H, Glucose 104 H, Calcium 9.5, Troponin T High Sens 22 H D 02/20/25 07:16: Troponin T Hi Sens 2 Hr 30 H Imaging Radiology Impression Brain CT 02/20/25 05:09 IMPRESSION: Interval appearance of ill-defined cortical/subcortical hypodense area in the medial aspects of the right temporal and occipital lobes measuring 7.4 x 2.5 cm, probably acute ischemia in the territory of the right posterior cerebral artery. No associated hemorrhagic changes or midline shift. Findings were discussed with Dr. Tati Rice at 5:28 am EST. Reading Location: [place] [address] Head/Neck CTA 02/20/25 05:10 IMPRESSION: Complete occlusion of the right posterior cerebral artery at the level of the distal P1 segment, not present on the prior exam. Atherosclerosis without high-grade stenosis in the cervical segments of the internal carotid arteries. I discussed the findings with Dr. Tati Rice in the emergency department at 6 a.m. EST. Reading Location: [place] [address] Chest X-Ray 02/20/25 05:50 IMPRESSION: No evidence for acute abnormality. Reading Location: [place] [address] Active Medications Active Medications Active Medications: Current Medications Generic Name Dose Route Start Last Admin Trade Name Freq PRN Reason Stop Dose Admin Acetaminophen 650 mg 02/20/25 08:38 02/20/25 09:41 Acetaminophen 325 Mg Tablet GT 650 mg Q6H PRN PRN Administration Pain 1-10 Or Fever >100.7 Albuterol Sulfate 2.5 mg 02/20/25 08:38 Albuterol 2.5 Mg/3 Ml Vial.Neb. INHALATION Q2H PRN PRN SOB &/OR WHEEZING Aspirin 81 mg 02/21/25 08:00 Aspirin 81 Mg Tab.Chew GT BREAKFAST SANJUANA Atorvastatin Calcium 40 mg 02/20/25 22:00 Atorvastatin Calcium 40 Mg Tablet GT QHS SANJUANA Buspirone HCl 5 mg 02/20/25 14:00 Buspirone 5 Mg Tablet GT 0600,1400 SANJUANA Buspirone HCl 5 mg 02/20/25 22:00 Buspirone 5 Mg Tablet GT QHS SANJUANA Furosemide 40 mg 02/20/25 11:15 Furosemide 40 Mg/4 Ml Vial IV DAILY PRN PRN crackles or wet cough Glycerin/Hypromellose/Polyethylene 2 drp 02/20/25 11:15 Glycerin/Hypromellose/Sco535 15 Ml Bottle EACH EYE Q1H PRN DRY EYES Haloperidol Lactate 1 mg 02/20/25 11:15 Haloperidol Lactate 10 Mg/5 Ml Udc SL/PO Q2H PRN PRN agitation/hallucinations Hydralazine HCl 5 mg 02/20/25 08:38 Hydralazine 20 Mg/Ml Vial IV 02/21/25 08:38 Q30M PRN maintain BP parameters with HR <60 Hyoscyamine Sulfate 0.125 mg 02/20/25 11:15 Hyoscyamine Sulfate 0.125 Mg Tablet SL/PO Q4H PRN PRN Secretions Sodium Chloride 250 mls @ 15 mls/hr 02/20/25 09:30 IV .[id number] PRN Saline Flush Sodium Chloride 250 mls @ 15 mls/hr 02/20/25 09:30 IV .[id number] PRN Additional IVPB Infusion Labetalol HCl 20 mg 02/20/25 05:09 Labetalol 20 Mg/4 Ml Vial IV 02/21/25 05:09 X1 PRN BLOOD PRESSURE Labetalol HCl 10 - 20 mg 02/20/25 08:38 Labetalol 20 Mg/4 Ml Vial IV 02/21/25 08:38 Q10M PRN PRN maintain BP parameters with HR >/=60 Lorazepam 0.5 mg 02/20/25 11:15 Lorazepam 2 Mg/Ml Syringe IV Q2H PRN PRN Anxiety or Restlessness Melatonin 10 mg 02/20/25 08:38 Melatonin 10 Mg Tablet GT QHS PRN PRN INSOMNIA Morphine Sulfate 2 mg 02/20/25 11:15 Morphine 2 Mg/Ml Syringe IV Q2H PRN PRN Pain Score 1-10 Multi-Ingredient Cream 1 applic 02/20/25 11:15 Petrolatum 33% Tube TOPICAL Q6H PRN PRN DRY SKIN Protocol Non-Formulary Medication 0 ml 02/20/25 10:00 Lactose-Reduced Food With Fibr [Isosource 1.5 Richard] PO Q12 SANJUANA Ondansetron HCl 4 mg 02/20/25 08:38 Ondansetron 4 Mg/2 Ml Vial IV Q6H PRN NAUSEA/VOMITING Saliva Substitute 15 ml 02/20/25 11:15 Saliva Substitute 237 Ml Bottle MUCOUS MEM 5X/DAY PRN DRY MOUTH Senna/Docusate Sodium 2 tablet 02/20/25 08:38 Senna/Docusate Sodium 1 Tablet GT BID PRN PRN Constipation Sodium Chloride 10 - 40 ml 02/20/25 09:30 0.9% Saline Lock 10 Ml Syringe IV UD PRN SALINE FLUSH Sodium Chloride 2 spray 02/20/25 11:15 Sodium Chloride 0.65% 1 [place] Maple [place].Btl NASAL Q4H PRN PRN NASAL DRYNESS NIHSS NIHSS Nursing Documentation NIHSS Nursing Documentation: NIHSS: Ischemic Stroke/TIA Start: 02/20/25 08:38 Text: For PCU Patients: NIH and Neuro Check every 4 Status: Active hours, PRN and with change in RN caregiver. Freq: [id number] Protocol: Activity Type Activity Date Activity User E-sign Co-sign Detail Recorded Client Recorded Date Recorded By Document 02/20/25 09:15 [id number] 02/20/25 10:00 SS 02/20/25 09:15 NIH Stroke Scale [NIHSS] A score of 0 is "normal" or asymptomatic . Total possible score is 42. Inpatient: RN or Physician to activate a stroke alert for onset of new stroke symptoms or with NIHSS increase >/= 3 points. Following change in neurological status, NIHSS will be performed per physician order or more frequently PRN. -1a. Level of Consciousness 0 - Alert; keenly responsive -1b. LOC Questions 2 - Answers NEITHER question correctly -4. Facial Palsy 0 - Normal symmetrical movements -5a. Left Arm 3 - No effort against gravity ; arm falls -5b. Right Arm 1 - Drift; arm drifts downward but doesn’t hit the bed -6a. Left Leg 3 - No effort against gravity ; leg falls to bed immediately -6b. Right Leg 1 - Drift; leg falls by the end of 5- seconds, but does not hit bed -9. Best Language 2 - Severe aphasia; -10. Dysarthria 2 - Severe dysarthria; -Total 14 Query Text:A score of 0 is "normal" or asymptomatic. Total possible score is 42 . ED: Notify Physician for NIHSS increase by > / = 3 points. Inpatient: RN or Physician to activate a stroke alert for NIHSS increase of > / = 3 points. Coma Scale [Assess] -Eye Opening Spontaneous -Motor Localizes to Pain -Verbal Confused [Total] -Coma Scale Total 13 NIHSS 1a. Level of Consciousness: 0 - Alert; keenly responsive 1b. LOC Questions: 2 - Answers NEITHER question correctly 1c. LOC Commands: 2 - Performs NEITHER task correctly 2. Best Gaze: 0 - Normal 3. Visual: 0 - No visual loss 4. Facial Palsy: 0 - Normal symmetrical movements 5a. Left Arm: 3 - No effort against gravity; arm falls 5b. Right Arm: 0 - No drift; arm holds 90 (or 45) degrees for full 10 seconds 6a. Left Le - No effort against gravity; leg falls to bed immediately 6b. Right Le - No drift; leg holds 30-degree position for full 5 seconds 7. Limb Ataxia: 0 - Absent 8. Sensory: 0 - Normal; no sensory loss 9. Best Language: 2 - Severe aphasia; 10. Dysarthria: 1 = [id number] dysarthria; 11. Extinction and Inattention: 0 - No abnormality Total: 13
--- OUTSIDE RECORDS SUMMARY | 2025-02-20 12:44 | XMS RPT_ITS | CCD ---
Author Organization [facility] Care Team Providers Care [employer] Player Name Role Phone TAMIA QUEZADA ([place]) Unavailable Unavailabl e ILYA WEBBER Unavailable Unavailable Suresh Edwards MD Unavailable Lamonte Toney MD Unavailable Francis De La O MD Unavailable Jose G Harrington PA-C Primary Care Provider Lamonte Toney MD Unavailable Francis De La O MD Unavailable Jose G Harrington PA-C Primary Care Provider Jose G Harrington PA-C Primary Care Provider Haagen COOPERATIVE EDUCATION COORDINATOR.Breann WALSH Unavailable Suppan COOPERATIVE EDUCATION COORDINATOR.PROPERTY ADJUSTER, Tasha A Unavailable [phone] Suppan COOPERATIVE EDUCATION COORDINATOR.PROPERTY ADJUSTER, Tasha A Primary Care Provi edy Suppan COOPERATIVE EDUCATION COORDINATOR.PROPERTY ADJUSTER, Tasha A Unavailable [phone] Suppan COOPERATIVE EDUCATION COORDINATOR.PROPERTY ADJUSTER, Tasha A Primary Care Provi edy Dr. Ricki Reyes MD Emergency Provider Suppan INSIDE SALES ADVISOR, Tasha Primary Care Provider Dr. Fawad Cordon [...] Provider Yaakov WILLIS, Dr. Daly Other Provider Santiago WILLIS, Dr. Mosley Other Provider Fatoumata WILLIS, Dr. Ordaz Other Provider Zaid WILLIS, Dr. Nunez Other Provider Unavailable Sven WILLIS, Luc Other Provider Unavailable Gordon WILLIS, Dr. Harley Attending Provider Zaid GOMEZ, Dr. Terry Other Provider Behzad Dorado Unavailable Suppan COOPERATIVE EDUCATION COORDINATOR.PROPERTY ADJUSTER, Tasha A Unavailable [phone] Sementi DO, Dr. Behzad Escalante Admit Provider Semenalexus DO, Dr. Behzad Escalante Attending Provide r Sementi DO, Dr. Behzad Escalante Other Provider Lizzette CANCHOLA, Mack Unavailable Suppan INSIDE SALES ADVISOR, Tasha Referring Provider Lakshmi Raphael Attending Provider [phone] Dr. Mihai Woods DO Emergency Provider Lzizette CANCHOLA, Mack Unavailable [facility] Cardiac Respiration, Other Prim malcom Care [...] Adhesive Tape Substance Allergy 08-27-19 12 Rash [facility] NITROFURANTOIN, MACROCRYSTALS / Nitrofurantoin, Monohydrate (1 source) NITROFURANTOIN, MACROCRYSTALS / Nitrofurantoin, Monohydrate Drug Allergy 09-26-19 Rash [facility] Sulfamethoxazole / Trimethoprim (1 source) Sulfamethoxazole / Trimethoprim Drug Allergy 09-26-19 [facility] Work Phone: (20 sources) Adhesive Tape; Translations: [ADHESIVE TAPE (ROSINS)] Propensity to adverse reactions (disorder) 08-27-19 12 Rash [facility] (20 sources) Hmg-Coa Reductase Inhibitors (Statins); Translations: [UQSQYJV-YRX-VHR REDUCTASE INHIBITORS] Propensity to adverse reactions to drug (disorder) 10-07-19 15 Intolerance [facility] (1 source) UTI MEDICATION drug allergy 06-07-19 rash, itching [facility] Work Phone: (20 sources) NITROFURANTOIN, MACROCRYSTALS / Nitrofurantoin, Monohydrate; Translations: [NITROFURANTOIN MONOHYD/M-CRYST] Drug Allergy 09-26-19 [facility] Work Phone: (20 sources) Sulfamethoxazole / Trimethoprim; Translations: [SULFAMETHOXAZOLE-T RIMETHOPRIM] Drug Allergy 09-26-19 [facility] Work Phone: (7 sources) Nitrofurantoin Drug Allergy 04-07-20 Rash [facility] (3 sources) Adhesive Tape; Translations: [adhesive tape] Allergy to substance 10-13-19 Unknown [facility] (2 sources) Sulfamethoxazole Drug Allergy 10-13-19 Unknown [facility] (2 sources) Trimethoprim Drug Allergy 10-13-19 [facility] (2 sources) Igamxgj-Izg-Mgg Reductase Inhibitor Propensity to adverse reactions 10-13-19 Unknown [facility] (1 source) Nitrofurantoin Drug Allergy 10-13-19 [facility] Repository (1 source) Sulfamethoxazole Drug Allergy 10-13-19 [facility] (1 source) Trimethoprim Drug Allergy 10-13-19 [facility] Repository (1 source) Gdtgmaz-Jrn-Wfh Reductase Inhibitor Drug allergy (disorder) 10-13-19 [facility] Repository Medications Current Medications Medication [...] Start: 08-15-2023 take 2 tablets by mo [facility] every twelve hours as needed for [...] Active EQ ACETAMINOPHEN 500 MG TABS acetaminophen [id number] Gali Patrick AT Comment on above: Take [...] 500 MG CAPS ascorbic acid (vitamin c) [id number] Gali Patrick AT Comment on above: Take [...] Comment on above: Take 1 tablet by [facility] twice daily. Pt reports magnesium calcium citrate [...] ( 5000 UT) TABS cholecalciferol (vitamin d3) [id number] Gali Patrick AT Comment on above: Take [...] aily. docusate sodium 50 mg / sennosides, mcfp 8.6 mg oral tablet (9 sources) Start: [...] 325 (65 Fe) MG TABS ferrous sulfate [id number] Gali Andreranjit AT Comment on above: Take [...] CAPS 1 capsule once a day garlic [id number] Gali Patrick AT Comment on above: Take [...] Active PROBIOTIC (LACTO BACILLUS) CAPS lactobacillus acidophilus [id number] Gali Patrick AT Comment on above: Take [...] on above: Take 1 capsule by mo [facility] once daily. lisinopril 10 mg oral [...] Active take 1 tablet by mouth once atno y multivitamin ORAL tablet Take 1 tablet by mouth once daily. 0 Active Comment on above: Take 1 tablet by [facility] once daily. Multivitamin preparation (1 source) MULTI-VITAMINS T ABS 1 once a day multivitamin [id number] Gali Patrick AT 200 ml niCARdipine hydrochloride [...] once a day omega-3 fatty acids-fish oil [id number] Gali RAMIREZ omeprazole 20 mg delayed release oral capsule (4 sources) Proton Pump Inhibitor Start: 1 End: 2 take 1 capsule by mouth once daily before breakfast omeprazole (PRILOSEC) 20 mg capsule Take 1 capsule by mouth daily before breakfast. 1/2 hr before meal. 90 capsule 1 02/12/2021 10/29/2021 Discontinued Comment on above: Take 1 capsule by mo [facility] daily before breakfast. 1/2 hr before meal. perflutren lipid microspheres 1.3 mL in NaCl (PF) 0.9% 10 mL injection (DEFINITY) (20 sources) Start: 2 End: perflutren lipid microspheres 1.3 mL in NaCl (PF) 0.9% 10 mL injection (DEFINITY) polyethylene glycol 3350 43727 mg powder for oral solution (3 sources) Osmotic Laxative Start: End: Start: 10-25-2024 End: 11-02-2024 QUEtiapine 25 mg oral tablet (16 sources) Atypical Antipsychotic Start: 11-16-2024 End: 11-16-2024 Start: 11-14-2024 End: 11-14-2024 Start: 11-14-2024 End: 11-14-2024 Start: 11-05-2024 End: 11-05-2024 Start: 11-01-2024 End: 11-12-2024 Start: 10-28-2024 End: 11-03-2024 Start: 10-22-2024 End: 10-26-2024 Start: 10-20-2024 End: 10-20-2024 sennosides, mcfp 8.6 mg oral tablet (3 sources) Start: [...] capsule once a day cyanocobalamin (vitamin b-12) [id number] Gali Patrick AT Comment on above: Dissolve 1 tablet un edy the tongue once daily. vitamin e 180 mg oral capsule (4 sources) Start: 08-15-2016 End: 10-29-2021 take 1 capsule by mouth once daily alpha tocopheryl acetate (VITAMIN E) 400 unit capsule Take 1 capsule by mouth once daily. 0 08/15/2016 10/29/2021 Discontinued (Discontinued by Patient) Comment on above: Take 1 capsule by [facility] once daily. 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 Appropriately treated with antibiotics prior to admission to rehab on 08/22/24. Results Test Name Value Interpretation Reference Range Facility Basic Metabolic Profile (BMP )on 01-25-2025 BUN/CRE 27.0 RATIO High 01-31 [facility] Comment on above: Order Comment: 101.1 Performed By: #### L 500.2500, L100.0100 ####[facility] [address] [place], [address] Calcium [Mass/Vol] 9.5 mg/dL Normal 7.6-11.0 [facility] Comment on above: Order Comment: 101.1 Performed By: #### L 500.2500, L100.0100 ####[facility] [address] [place], [address] Chloride [Moles/Vol] 103 mmol/L Normal 98-108 [facility] Comment on above: Order Comment: 101.1 Performed By: #### L 500.2500, L100.0100 ####[facility] [address] [place], [address] CO2 [Moles/Vol] 26.6 mmol/L Normal 21.0-32.0 [facility] Comment on above: Order Comment: 101.1 Performed By: #### L 500.2500, L100.0100 ####[facility] [address] [place], [address] Creatinine [Mass/Vol] 0.74 mg/dL Normal 0.70-1.20 [facility] Comment on above: Order Comment: 101.1 Performed By: #### L 500.2500, L100.0100 ####[facility] [address] [place], [address] GAP 10 Normal 5-15 [facility] Comment on above: Order Comment: 101.1 Performed By: #### L 500.2500, L100.0100 ####[facility] [address] [place], [address] GFR/1.73 sq M.predicted among non-blacks MDRD (S/P/Bld) [Vol rate/Area] 78 mL/min/{1.73_m2} Normal >60 [facility] Comment on above: Order Comment: 101.1 Result Comment: mL/m in/1.73m2 CKD-EPI Creatinine Equation (2020) Performed By: #### L 500.2500, L100.0100 ####[facility] [address] [place], [address] Glucose [Mass/Vol] 105 mg/dL High 70-99 [facility] Comment on above: Order Comment: 101.1 Performed By: #### L 500.2500, L100.0100 ####[facility] [address] [place], [address] Potassium [Moles/Vol] 4.2 mmol/L Normal 3.3-5.1 [facility] Comment on above: Order Comment: 101.1 Performed By: #### L 500.2500, L100.0100 ####[facility] [address] [place], [address] Sodium [Moles/Vol] 140 mmol/L Normal 133-145 [facility] Comment on above: Order Comment: 101.1 Performed By: #### L 500.2500, L100.0100 ####[facility] [address] [place], [address] Urea nitrogen [Mass/Vol] 20 mg/dL High 4-19 [facility] Comment on above: Order Comment: 101.1 Performed By: #### L 500.2500, L100.0100 ####[facility] [address] [place], [address] CBC W/Diff, Automatedon 10- Absolute Lymph 0.96 X10 3/uL Normal 0.83-4.51 [facility] Comment on above: Order Comment: 101.1 Performed By: #### L 500.2500, L100.0100 ####[facility] [address] [place], [address] Absolute Neut 5.3 X10 3/uL Normal 2.0-7.7 [facility] Comment on above: Order Comment: 101.1 Performed By: #### L 500.2500, L100.0100 ####[facility] [address] [place], [address] Basophils/100 WBC (Bld) 1.1 % High 0-1 [facility] Comment on above: Order Comment: 101.1 Performed By: #### L 500.2500, L100.0100 ####[facility] [address] [place], [address] Eosinophils/100 WBC (Bld) 6.6 % High 0-5 [facility] Comment on above: Order Comment: 101.1 Performed By: #### L 500.2500, L100.0100 ####[facility] [address] [place], [address] Erythrocyte distribution width (RBC) [Ratio] 13.2 % Normal 11.6-14.6 [facility] Comment on above: Order Comment: 101.1 Performed By: #### L 500.2500, L100.0100 ####[facility] [address] [place], [address] Hematocrit (Bld) [Volume fraction] 34.3 % Low 37-47 [facility] Comment on above: Order Comment: 101.1 Performed By: #### L 500.2500, L100.0100 ####[facility] [address] [place], [address] Hemoglobin (Bld) [Mass/Vol] 10.7 g/dL Low 12.0-15.0 [facility] Comment on above: Order Comment: 101.1 Performed By: #### L 500.2500, L100.0100 ####[facility] [address] [place], [address] IG% 0.300 Normal 0.0-0.9 [facility] Comment on above: Order Comment: 101.1 Result Comment: IG% - Immature Granulocytes (promyelocytes, myelocytes andmetamyelocytes) > 1% indicates that a LEFT SHIFT is Present. Performed By: #### L 500.2500, L100.0100 ####[facility] [address] [place], [address] Lymphocytes/100 WBC (Bld) 12.9 % Low 19-41 [facility] Comment on above: Order Comment: 101.1 Performed By: #### L 500.2500, L100.0100 ####[facility] [address] [place], [address] MCH (RBC) [Entitic mass] 30.7 pg Normal 27.0-32.0 [facility] Comment on above: Order Comment: 101.1 Performed By: #### L 500.2500, L100.0100 ####[facility] [address] [place], [address] MCHC (RBC) [Mass/Vol] 31.2 g/dL Low 32-36 [facility] Comment on above: Order Comment: 101.1 Performed By: #### L 500.2500, L100.0100 ####[facility] [address] [place], [address] MCV (RBC) [Entitic vol] 98.6 fL Normal 81-99 [facility] Comment on above: Order Comment: 101.1 Performed By: #### L 500.2500, L100.0100 ####[facility] [address] [place], [address] Monocytes/100 WBC (Bld) 8.0 % Normal 0-10 [facility] Comment on above: Order Comment: 101.1 Performed By: #### L 500.2500, L100.0100 ####[facility] [address] [place], [address] Neutrophils/100 WBC (Bld) 71.1 % High 47-70 [facility] Comment on above: Order Comment: 101.1 Performed By: #### L 500.2500, L100.0100 ####[facility] [address] [place], [address] Nucleated RBC (Bld) [#/Vol] 0 10*3/uL Normal 0-5 [facility] Comment on above: Order Comment: 101.1 Performed By: #### L 500.2500, L100.0100 ####[facility] [address] [place], [address] Platelet mean volume (Bld) [Entitic vol] 9.8 fL Normal 6.2-12.0 [facility] Comment on above: Order Comment: 101.1 Performed By: #### L 500.2500, L100.0100 ####[facility] [address] [place], [address] Platelets (Bld) [#/Vol] 314 10*3/uL Normal 150-450 [facility] Comment on above: Order Comment: 101.1 Performed By: #### L 500.2500, L100.0100 ####[facility] [address] [place], [address] RBC (Bld) [#/Vol] 3.48 10*6/uL Low 4.2-5.4 [facility] Comment on above: Order Comment: 101.1 Performed By: #### L 500.2500, L100.0100 ####[facility] [address] [place], [address] RDW SD 46.8 fl High 35.1-43.9 [facility] Comment on above: Order Comment: 101.1 Performed By: #### L 500.2500, L100.0100 ####[facility] [address] [place], [address] WBC (Bld) [#/Vol] 7.5 10*3/uL Normal 4.4-11.0 [facility] Comment on above: Order Comment: 101.1 Performed By: #### L 500.2500, L100.0100 ####[facility] [address] [place], [address] Basic Metabolic Profile (BMP )on 01-13-2025 BUN/CRE 33.4 RATIO High 10-20 [facility] Comment on above: Order Comment: 101.1 Performed By: #### L 100.0500, L500.2500 ####[facility] [address] [place], [address] Calcium [Mass/Vol] 9.6 mg/dL Normal 7.6-11.0 [facility] Comment on above: Order Comment: 101.1 Performed By: #### L 100.0500, L500.2500 ####[facility] [address] [place], [address] Chloride [Moles/Vol] 106 mmol/L Normal 98-108 [facility] Comment on above: Order Comment: 101.1 Performed By: #### L 100.0500, L500.2500 ####[facility] [address] [place], [address] CO2 [Moles/Vol] 25.6 mmol/L Normal 21.0-32.0 [facility] Comment on above: Order Comment: 101.1 Performed By: #### L 100.0500, L500.2500 ####[facility] [address] [place], [address] Creatinine [Mass/Vol] 0.75 mg/dL Normal 0.70-1.20 [facility] Comment on above: Order Comment: 101.1 Performed By: #### L 100.0500, L500.2500 ####[facility] [address] [place], [address] GAP 11 Normal 5-15 [facility] Comment on above: Order Comment: 101.1 Performed By: #### L 100.0500, L500.2500 ####[facility] [address] [place], [address] GFR/1.73 sq M.predicted among non-blacks MDRD (S/P/Bld) [Vol rate/Area] 77 mL/min/{1.73_m2} Normal >60 [facility] Comment on above: Order Comment: 101.1 Result Comment: mL/m in/1.73m2 CKD-EPI Creatinine Equation (2020) Performed By: #### L 100.0500, L500.2500 ####[facility] [address] [place], [address] Glucose [Mass/Vol] 102 mg/dL High 70-99 [facility] Comment on above: Order Comment: 101.1 Performed By: #### L 100.0500, L500.2500 ####[facility] [address] [place], [address] Potassium [Moles/Vol] 4.4 mmol/L Normal 3.3-5.1 [facility] Comment on above: Order Comment: 101.1 Performed By: #### L 100.0500, L500.2500 ####[facility] [address] [place], [address] Sodium [Moles/Vol] 142 mmol/L Normal 133-145 [facility] Comment on above: Order Comment: 101.1 Performed By: #### L 100.0500, L500.2500 ####[facility] [address] [place], [address] Urea nitrogen [Mass/Vol] 25 mg/dL High 4-19 [facility] Comment on above: Order Comment: 101.1 Performed By: #### L 100.0500, L500.2500 ####[facility] [address] [place], [address] CBC-Complete Blood Cnt No Di ffon 01-13-2025 Erythrocyte distribution width (RBC) [Ratio] 13.8 % Normal 11.6-14.6 [facility] Comment on above: Order Comment: 101.1 Performed By: #### L 100.0500, L500.2500 ####[facility] [address] [place], [address] Hematocrit (Bld) [Volume fraction] 33.1 % Low 37-47 [facility] Comment on above: Order Comment: 101.1 Performed By: #### L 100.0500, L500.2500 ####[facility] [address] [place], [address] Hemoglobin (Bld) [Mass/Vol] 10.2 g/dL Low 12.0-15.0 [facility] Comment on above: Order Comment: 101.1 Performed By: #### L 100.0500, L500.2500 ####[facility] [address] [place], [address] MCH (RBC) [Entitic mass] 30.4 pg Normal 27.0-32.0 [facility] Comment on above: Order Comment: 101.1 Performed By: #### L 100.0500, L500.2500 ####[facility] [address] [place], [address] MCHC (RBC) [Mass/Vol] 30.8 g/dL Low 32-36 [facility] Comment on above: Order Comment: 101.1 Performed By: #### L 100.0500, L500.2500 ####[facility] [address] [place], [address] MCV (RBC) [Entitic vol] 98.8 fL Normal 81-99 [facility] Comment on above: Order Comment: 101.1 Performed By: #### L 100.0500, L500.2500 ####[facility] [address] [place], [address] Platelet mean volume (Bld) [Entitic vol] 9.6 fL Normal 6.2-12.0 [facility] Comment on above: Order Comment: 101.1 Performed By: #### L 100.0500, L500.2500 ####[facility] [address] [place], [address] Platelets (Bld) [#/Vol] 343 10*3/uL Normal 150-450 [facility] Comment on above: Order Comment: 101.1 Performed By: #### L 100.0500, L500.2500 ####[facility] [address] [place], [address] RBC (Bld) [#/Vol] 3.35 10*6/uL Low 4.2-5.4 [facility] Comment on above: Order Comment: 101.1 Performed By: #### L 100.0500, L500.2500 ####[facility] [address] [place], [address] RDW SD 49.9 fl High 35.1-43.9 [facility] Comment on above: Order Comment: 101.1 Performed By: #### L 100.0500, L500.2500 ####[facility] [address] [place], [address] WBC (Bld) [#/Vol] 6.5 10*3/uL Normal 4.4-11.0 [facility] Comment on above: Order Comment: 101.1 Performed By: #### L 100.0500, L500.2500 ####[facility] [address] [place], [address] Basic Metabolic Profile (BMP )on 12-09-2024 BUN/CRE 35.0 RATIO High 10-20 [facility] Comment on above: Order Comment: 101.1 Performed By: #### L 100.0500, L500.2500 ####[facility] [address] [place], [address] Calcium [Mass/Vol] 9.1 mg/dL Normal 7.6-11.0 [facility] Comment on above: Order Comment: 101.1 Performed By: #### L 100.0500, L500.2500 ####[facility] [address] [place], [address] Chloride [Moles/Vol] 105 mmol/L Normal 98-108 [facility] Comment on above: Order Comment: 101.1 Performed By: #### L 100.0500, L500.2500 ####[facility] [address] [place], [address] CO2 [Moles/Vol] 25.3 mmol/L Normal 21.0-32.0 [facility] Comment on above: Order Comment: 101.1 Performed By: #### L 100.0500, L500.2500 ####[facility] [address] [place], [address] Creatinine [Mass/Vol] 0.76 mg/dL Normal 0.70-1.20 [facility] Comment on above: Order Comment: 101.1 Performed By: #### L 100.0500, L500.2500 ####[facility] [address] [place], [address] GAP 8 Normal 5-15 [facility] Comment on above: Order Comment: 101.1 Performed By: #### L 100.0500, L500.2500 ####[facility] [address] [place], [address] GFR/1.73 sq M.predicted among non-blacks MDRD (S/P/Bld) [Vol rate/Area] 76 mL/min/{1.73_m2} Normal >60 [facility] Comment on above: Order Comment: 101.1 Result Comment: mL/m in/1.73m2 CKD-EPI Creatinine Equation (2020) Performed By: #### L 100.0500, L500.2500 ####[facility] [address] [place], [address] Glucose [Mass/Vol] 94 mg/dL Normal 70-99 [facility] Comment on above: Order Comment: 101.1 Performed By: #### L 100.0500, L500.2500 ####[facility] [address] [place], [address] Potassium [Moles/Vol] 4.3 mmol/L Normal 3.3-5.1 [facility] Comment on above: Order Comment: 101.1 Performed By: #### L 100.0500, L500.2500 ####[facility] [address] [place], [address] Sodium [Moles/Vol] 138 mmol/L Normal 133-145 [facility] Comment on above: Order Comment: 101.1 Performed By: #### L 100.0500, L500.2500 ####[facility] [address] [place], [address] Urea nitrogen [Mass/Vol] 27 mg/dL High 4-19 [facility] Comment on above: Order Comment: 101.1 Performed By: #### L 100.0500, L500.2500 ####[facility] [address] [place], [address] CBC-Complete Blood Cnt No Di ffon 12-09-2024 Erythrocyte distribution width (RBC) [Ratio] 13.3 % Normal 11.6-14.6 [facility] Comment on above: Order Comment: 101.1 Performed By: #### L 100.0500, L500.2500 ####[facility] [address] [place], [address] Hematocrit (Bld) [Volume fraction] 32.4 % Low 37-47 [facility] Comment on above: Order Comment: 101.1 Performed By: #### L 100.0500, L500.2500 ####[facility] [address] [place], [address] Hemoglobin (Bld) [Mass/Vol] 10.4 g/dL Low 12.0-15.0 [facility] Comment on above: Order Comment: 101.1 Performed By: #### L 100.0500, L500.2500 ####[facility] [address] [place], [address] MCH (RBC) [Entitic mass] 31.0 pg Normal 27.0-32.0 [facility] Comment on above: Order Comment: 101.1 Performed By: #### L 100.0500, L500.2500 ####[facility] [address] [place], [address] MCHC (RBC) [Mass/Vol] 32.1 g/dL Normal 32-36 [facility] Comment on above: Order Comment: 101.1 Performed By: #### L 100.0500, L500.2500 ####[facility] [address] [place], [address] MCV (RBC) [Entitic vol] 96.7 fL Normal 81-99 [facility] Comment on above: Order Comment: 101.1 Performed By: #### L 100.0500, L500.2500 ####[facility] [address] [place], [address] Platelet mean volume (Bld) [Entitic vol] 9.7 fL Normal 6.2-12.0 [facility] Comment on above: Order Comment: 101.1 Performed By: #### L 100.0500, L500.2500 ####[facility] [address] [place], [address] Platelets (Bld) [#/Vol] 302 10*3/uL Normal 150-450 [facility] Comment on above: Order Comment: 101.1 Performed By: #### L 100.0500, L500.2500 ####[facility] [address] [place], [address] RBC (Bld) [#/Vol] 3.35 10*6/uL Low 4.2-5.4 [facility] Comment on above: Order Comment: 101.1 Performed By: #### L 100.0500, L500.2500 ####[facility] [address] [place], [address] RDW SD 47.4 fl High 35.1-43.9 [facility] Comment on above: Order Comment: 101.1 Performed By: #### L 100.0500, L500.2500 ####[facility] [address] [place], [address] WBC (Bld) [#/Vol] 7.1 10*3/uL Normal 4.4-11.0 [facility] Comment on above: Order Comment: 101.1 Performed By: #### L 100.0500, L500.2500 ####[facility] [address] [place], [address] Basic Metabolic Profile (BMP )on 11-30-2024 BUN/CRE 31.0 RATIO High 10-20 [facility] Comment on above: Order Comment: 108.1 Performed By: #### L 500.2500, L100.0100, L501.5200 ####[facility] [address] [place], [address] Calcium [Mass/Vol] 9.7 mg/dL Normal 7.6-11.0 [facility] Comment on above: Order Comment: 108.1 Performed By: #### L 500.2500, L100.0100, L501.5200 ####[facility] [address] [place], [address] Chloride [Moles/Vol] 104 mmol/L Normal 98-108 [facility] Comment on above: Order Comment: 108.1 Performed By: #### L 500.2500, L100.0100, L501.5200 ####[facility] [address] [place], [address] CO2 [Moles/Vol] 27.6 mmol/L Normal 21.0-32.0 [facility] Comment on above: Order Comment: 108.1 Performed By: #### L 500.2500, L100.0100, L501.5200 ####[facility] [address] [place], [address] Creatinine [Mass/Vol] 0.76 mg/dL Normal 0.70-1.20 [facility] Comment on above: Order Comment: 108.1 Performed By: #### L 500.2500, L100.0100, L501.5200 ####[facility] [address] [place], [address] GAP 10 Normal 5-15 [facility] Comment on above: Order Comment: 108.1 Performed By: #### L 500.2500, L100.0100, L501.5200 ####[facility] [address] [place], [address] GFR/1.73 sq M.predicted among non-blacks MDRD (S/P/Bld) [Vol rate/Area] 76 mL/min/{1.73_m2} Normal >60 [facility] Comment on above: Order Comment: 108.1 Result Comment: mL/m in/1.73m2 CKD-EPI Creatinine Equation (2020) Performed By: #### L 500.2500, L100.0100, L501.5200 ####[facility] [address] [place], [address] Glucose [Mass/Vol] 102 mg/dL High 70-99 [facility] Comment on above: Order Comment: 108.1 Performed By: #### L 500.2500, L100.0100, L501.5200 ####[facility] [address] [place], [address] Potassium [Moles/Vol] 4.3 mmol/L Normal 3.3-5.1 [facility] Comment on above: Order Comment: 108.1 Performed By: #### L 500.2500, L100.0100, L501.5200 ####[facility] [address] [place], [address] Sodium [Moles/Vol] 141 mmol/L Normal 133-145 [facility] Comment on above: Order Comment: 108.1 Performed By: #### L 500.2500, L100.0100, L501.5200 ####[facility] [address] [place], [address] Urea nitrogen [Mass/Vol] 24 mg/dL High 4-19 [facility] Comment on above: Order Comment: 108.1 Performed By: #### L 500.2500, L100.0100, L501.5200 ####[facility] [address] [place], [address] CBC W/Diff, Automatedon 08- Absolute Lymph 1.86 X10 3/uL Normal 0.83-4.51 [facility] Comment on above: Order Comment: 108.1 Performed By: #### L 500.2500, L100.0100, L501.5200 ####[facility] [address] [place], [address] Absolute Neut 3.3 X10 3/uL Normal 2.0-7.7 [facility] Comment on above: Order Comment: 108.1 Performed By: #### L 500.2500, L100.0100, L501.5200 ####[facility] [address] [place], [address] Basophils/100 WBC (Bld) 1.7 % High 0-1 [facility] Comment on above: Order Comment: 108.1 Performed By: #### L 500.2500, L100.0100, L501.5200 ####[facility] [address] [place], [address] Eosinophils/100 WBC (Bld) 10.4 % High 0-5 [facility] Comment on above: Order Comment: 108.1 Performed By: #### L 500.2500, L100.0100, L501.5200 ####[facility] [address] [place], [address] Erythrocyte distribution width (RBC) [Ratio] 13.2 % Normal 11.6-14.6 [facility] Comment on above: Order Comment: 108.1 Performed By: #### L 500.2500, L100.0100, L501.5200 ####[facility] [address] [place], [address] Hematocrit (Bld) [Volume fraction] 36.3 % Low 37-47 [facility] Comment on above: Order Comment: 108.1 Performed By: #### L 500.2500, L100.0100, L501.5200 ####[facility] [address] [place], [address] Hemoglobin (Bld) [Mass/Vol] 11.6 g/dL Low 12.0-15.0 [facility] Comment on above: Order Comment: 108.1 Performed By: #### L 500.2500, L100.0100, L501.5200 ####[facility] [address] [place], [address] IG% 0.600 Normal 0.0-0.9 [facility] Comment on above: Order Comment: 108.1 Result Comment: IG% - Immature Granulocytes (promyelocytes, myelocytes andmetamyelocytes) > 1% indicates that a LEFT SHIFT is Present. Performed By: #### L 500.2500, L100.0100, L501.5200 ####[facility] [address] [place], [address] Lymphocytes/100 WBC (Bld) 28.1 % Normal 19-41 [facility] Comment on above: Order Comment: 108.1 Performed By: #### L 500.2500, L100.0100, L501.5200 ####[facility] [address] [place], [address] MCH (RBC) [Entitic mass] 31.4 pg Normal 27.0-32.0 [facility] Comment on above: Order Comment: 108.1 Performed By: #### L 500.2500, L100.0100, L501.5200 ####[facility] [address] [place], [address] MCHC (RBC) [Mass/Vol] 32.0 g/dL Normal 32-36 [facility] Comment on above: Order Comment: 108.1 Performed By: #### L 500.2500, L100.0100, L501.5200 ####[facility] [address] [place], [address] MCV (RBC) [Entitic vol] 98.1 fL Normal 81-99 [facility] Comment on above: Order Comment: 108.1 Performed By: #### L 500.2500, L100.0100, L501.5200 ####[facility] [address] [place], [address] Monocytes/100 WBC (Bld) 9.0 % Normal 0-10 [facility] Comment on above: Order Comment: 108.1 Performed By: #### L 500.2500, L100.0100, L501.5200 ####[facility] [address] [place], [address] Neutrophils/100 WBC (Bld) 50.2 % Normal 47-70 [facility] Comment on above: Order Comment: 108.1 Performed By: #### L 500.2500, L100.0100, L501.5200 ####[facility] [address] [place], [address] Nucleated RBC (Bld) [#/Vol] 0 10*3/uL Normal 0-5 [facility] Comment on above: Order Comment: 108.1 Performed By: #### L 500.2500, L100.0100, L501.5200 ####[facility] [address] [place], [address] Platelet mean volume (Bld) [Entitic vol] 9.7 fL Normal 6.2-12.0 [facility] Comment on above: Order Comment: 108.1 Performed By: #### L 500.2500, L100.0100, L501.5200 ####[facility] [address] [place], [address] Platelets (Bld) [#/Vol] 349 10*3/uL Normal 150-450 [facility] Comment on above: Order Comment: 108.1 Performed By: #### L 500.2500, L100.0100, L501.5200 ####[facility] [address] [place], [address] RBC (Bld) [#/Vol] 3.70 10*6/uL Low 4.2-5.4 [facility] Comment on above: Order Comment: 108.1 Performed By: #### L 500.2500, L100.0100, L501.5200 ####[facility] [address] [place], [address] RDW SD 47.2 fl High 35.1-43.9 [facility] Comment on above: Order Comment: 108.1 Performed By: #### L 500.2500, L100.0100, L501.5200 ####[facility] [address] [place], [address] WBC (Bld) [#/Vol] 6.6 10*3/uL Normal 4.4-11.0 [facility] Comment on above: Order Comment: 108.1 Performed By: #### L 500.2500, L100.0100, L501.5200 ####[facility] [address] [place], [address] Magnesiumon 11-30-2024 Magnesium [Mass/Vol] 2.4 mg/dL High 1.5-2.2 [facility] Comment on above: Order Comment: 108.1 Performed By: #### L 500.2500, L100.0100, L501.5200 ####[facility] [address] [place], [address] Basic Metabolic Profile (BMP )on 11-23-2024 BUN/CRE 32.0 RATIO High 10-20 [facility] Comment on above: Order Comment: 108MA GA Performed By: #### L 506.1001, L500.2500, L100.0100 ####[facility] [address] [place], [address] Calcium [Mass/Vol] 9.6 mg/dL Normal 7.6-11.0 [facility] Comment on above: Order Comment: 108MA GA Performed By: #### L 506.1001, L500.2500, L100.0100 ####[facility] [address] [place], [address] Chloride [Moles/Vol] 102 mmol/L Normal 98-108 [facility] Comment on above: Order Comment: 108MA GA Performed By: #### L 506.1001, L500.2500, L100.0100 ####[facility] [address] [place], [address] CO2 [Moles/Vol] 25.8 mmol/L Normal 21.0-32.0 [facility] Comment on above: Order Comment: 108MA GA Performed By: #### L 506.1001, L500.2500, L100.0100 ####[facility] [address] [place], [address] Creatinine [Mass/Vol] 1.00 mg/dL Normal 0.70-1.20 [facility] Comment on above: Order Comment: 108MA GA Performed By: #### L 506.1001, L500.2500, L100.0100 ####[facility] [address] [place], [address] GAP 9 Normal 5-15 [facility] Comment on above: Order Comment: 108MA GA Performed By: #### L 506.1001, L500.2500, L100.0100 ####[facility] [address] [place], [address] GFR/1.73 sq M.predicted among non-blacks MDRD (S/P/Bld) [Vol rate/Area] 55 mL/min/{1.73_m2} Low >60 [facility] Comment on above: Order Comment: 108MA GA Result Comment: mL/m in/1.73m2 CKD-EPI Creatinine Equation (2020) Performed By: #### L 506.1001, L500.2500, L100.0100 ####[facility] [address] [place], [address] Glucose [Mass/Vol] 118 mg/dL High 70-99 [facility] Comment on above: Order Comment: 108MA GA Performed By: #### L 506.1001, L500.2500, L100.0100 ####[facility] [address] [place], [address] Potassium [Moles/Vol] 4.4 mmol/L Normal 3.3-5.1 [facility] Comment on above: Order Comment: 108MA GA Performed By: #### L 506.1001, L500.2500, L100.0100 ####[facility] [address] [place], [address] Sodium [Moles/Vol] 137 mmol/L Normal 133-145 [facility] Comment on above: Order Comment: 108MA GA Performed By: #### L 506.1001, L500.2500, L100.0100 ####[facility] [address] [place], [address] Urea nitrogen [Mass/Vol] 32 mg/dL High 4-19 [facility] Comment on above: Order Comment: 108MA GA Performed By: #### L 506.1001, L500.2500, L100.0100 ####[facility] [address] [place], [address] CBC W/Diff, Automatedon 11-12 Absolute Lymph 0.99 X10 3/uL Normal 0.83-4.51 [facility] Comment on above: Order Comment: 108 Performed By: #### L 506.1001, L500.2500, L100.0100 ####[facility] [address] [place], [address] Absolute Neut 8.9 X10 3/uL High 2.0-7.7 [facility] Comment on above: Order Comment: 108 Performed By: #### L 506.1001, L500.2500, L100.0100 ####[facility] [address] [place], [address] Basophils/100 WBC (Bld) 1.0 % Normal 0-1 [facility] Comment on above: Order Comment: 108 Performed By: #### L 506.1001, L500.2500, L100.0100 ####[facility] [address] [place], [address] Eosinophils/100 WBC (Bld) 3.5 % Normal 0-5 [facility] Comment on above: Order Comment: 108 Performed By: #### L 506.1001, L500.2500, L100.0100 ####[facility] [address] [place], [address] Erythrocyte distribution width (RBC) [Ratio] 13.1 % Normal 11.6-14.6 [facility] Comment on above: Order Comment: 108 Performed By: #### L 506.1001, L500.2500, L100.0100 ####[facility] [address] [place], [address] Hematocrit (Bld) [Volume fraction] 35.7 % Low 37-47 [facility] Comment on above: Order Comment: 108 Performed By: #### L 506.1001, L500.2500, L100.0100 ####[facility] [address] [place], [address] Hemoglobin (Bld) [Mass/Vol] 11.5 g/dL Low 12.0-15.0 [facility] Comment on above: Order Comment: 108 Performed By: #### L 506.1001, L500.2500, L100.0100 ####[facility] [address] [place], [address] IG% 0.300 Normal 0.0-0.9 [facility] Comment on above: Order Comment: 108 Result Comment: IG% - Immature Granulocytes (promyelocytes, myelocytes andmetamyelocytes) > 1% indicates that a LEFT SHIFT is Present. Performed By: #### L 506.1001, L500.2500, L100.0100 ####[facility] [address] [place], [address] Lymphocytes/100 WBC (Bld) 9.0 % Low 19-41 [facility] Comment on above: Order Comment: 108 Performed By: #### L 506.1001, L500.2500, L100.0100 ####[facility] [address] [place], [address] MCH (RBC) [Entitic mass] 31.4 pg Normal 27.0-32.0 [facility] Comment on above: Order Comment: 108 Performed By: #### L 506.1001, L500.2500, L100.0100 ####[facility] [address] [place], [address] MCHC (RBC) [Mass/Vol] 32.2 g/dL Normal 32-36 [facility] Comment on above: Order Comment: 108 Performed By: #### L 506.1001, L500.2500, L100.0100 ####[facility] [address] [place], [address] MCV (RBC) [Entitic vol] 97.5 fL Normal 81-99 [facility] Comment on above: Order Comment: 108 Performed By: #### L 506.1001, L500.2500, L100.0100 ####[facility] [address] [place], [address] Monocytes/100 WBC (Bld) 5.5 % Normal 0-10 [facility] Comment on above: Order Comment: 108 Performed By: #### L 506.1001, L500.2500, L100.0100 ####[facility] [address] [place], [address] Neutrophils/100 WBC (Bld) 80.7 % High 47-70 [facility] Comment on above: Order Comment: 108 Performed By: #### L 506.1001, L500.2500, L100.0100 ####[facility] [address] [place], [address] Nucleated RBC (Bld) [#/Vol] 0 10*3/uL Normal 0-5 [facility] Comment on above: Order Comment: 108 Performed By: #### L 506.1001, L500.2500, L100.0100 ####[facility] [address] [place], [address] Platelet mean volume (Bld) [Entitic vol] 9.9 fL Normal 6.2-12.0 [facility] Comment on above: Order Comment: 108 Performed By: #### L 506.1001, L500.2500, L100.0100 ####[facility] [address] [place], [address] Platelets (Bld) [#/Vol] 297 10*3/uL Normal 150-450 [facility] Comment on above: Order Comment: 108 Performed By: #### L 506.1001, L500.2500, L100.0100 ####[facility] [address] [place], [address] RBC (Bld) [#/Vol] 3.66 10*6/uL Low 4.2-5.4 [facility] Comment on above: Order Comment: 108 Performed By: #### L 506.1001, L500.2500, L100.0100 ####[facility] [address] [place], [address] RDW SD 46.8 fl High 35.1-43.9 [facility] Comment on above: Order Comment: 108 Performed By: #### L 506.1001, L500.2500, L100.0100 ####[facility] [address] [place], [place], [address]) WBC (Bld) [#/Vol] 11.0 10*3/uL Normal 4.4-11.0 [facility] Comment on above: Order Comment: 108 Performed By: #### L 506.1001, L500.2500, L100.0100 ####[facility] [address] [place], [address] [facility]20[facility] Telephone ([facility] BEHZAD HAY Brittney ([id number]) 1940 F Date Time Provider Department 11/23/24 [facility]ASHA DEUTSCH [facility] During your visit today, we recorded the following information about you: Tasha Deutsch APRN.PROPERTY ADJUSTER 11/23/2024 5:28 PM Signed Patient was admitted to [facility] on October 18, 2024 and discharged on November 16, 2024 for basal ganglia hemorrhage Patient is an 84-year-old female with a history of atrial fibrillation on Eliquis last dose October 18 in the morning, hypertension, hyperlipidemia who presented from [place] with an L. thalamic intracranial hemorrhage. LKW 2099October 17. Patient awoke at 6 AM October 18 with some right sided weakness was found in her home by her health aide at 9 AM slumped against the wall with right-sided weakness, right facial droop, dysarthria. NIHSS on arrival [facility] ED 16. [facility] with left [...] therapy. She is being discharged to a [facility] facility in stable condition. Discharge plan has [...] Rash MACROBID (NITROFURANTOIN MONOHYD/*09/25/2018 2 - Rash ZCIQGEP-FFS-ECI REDUCTASE INHIBIT*10/06/2014 5 - Intolerance Comments: severe leg pain Date Reviewed: 10/13/2024 Reviewed by: Yola Nj COTA/Filippo - Fully Assessed Primary Visit Diagnosis:Acute CVA (cerebrovascular accident) (HCC) [I63.9] Order(s):doxazosin (CARDURA) 4 mg tablet1 tablet by PEG route once d (more content not included)... Normal [facility] Vitamin D,25 Hydroxyon 11-23 Vitamin D 25-OH 33.4 ng/mL Normal 30-100 [facility] Comment on above: Order Comment: 108 Result Comment: Tati min D StatusDeficiency: <20 ng/mL (50nmol/L)Insufficiency: 20-30 ng/mL (50-75 nmol/L)Sufficiency: 30-100 ng/mL (75-250 nmol/L)Toxicity: >100 ng/mL (>250 nmol/L) Performed By: #### L 506.1001, L500.2500, L100.0100 ####[facility] [address] [place], [address] Basic Metabolic Profile (BMP )on 11-18-2024 BUN/CRE 38.1 RATIO High 10-20 [facility] Comment on above: Order Comment: 108 Performed By: #### L 100.0500, L500.2500 ####[facility] [address] [place], [address] Calcium [Mass/Vol] 10.0 mg/dL Normal 7.6-11.0 [facility] Comment on above: Order Comment: 108 Performed By: #### L 100.0500, L500.2500 ####[facility] [address] [place], [address] Chloride [Moles/Vol] 103 mmol/L Normal 98-108 [facility] Comment on above: Order Comment: 108 Performed By: #### L 100.0500, L500.2500 ####[facility] [address] [place], [address] CO2 [Moles/Vol] 26.6 mmol/L Normal 21.0-32.0 [facility] Comment on above: Order Comment: 108 Performed By: #### L 100.0500, L500.2500 ####[facility] [address] [place], [address] Creatinine [Mass/Vol] 0.75 mg/dL Normal 0.70-1.20 [facility] Comment on above: Order Comment: 108 Performed By: #### L 100.0500, L500.2500 ####[facility] [address] [place], [address] GAP 10 Normal 5-15 [facility] Comment on above: Order Comment: 108 Performed By: #### L 100.0500, L500.2500 ####[facility] [address] [place], [address] GFR/1.73 sq M.predicted among non-blacks MDRD (S/P/Bld) [Vol rate/Area] 77 mL/min/{1.73_m2} Normal >60 [facility] Comment on above: Order Comment: 108 Result Comment: mL/m in/1.73m2 CKD-EPI Creatinine Equation (2020) Performed By: #### L 100.0500, L500.2500 ####[facility] [address] [place], [address] Glucose [Mass/Vol] 132 mg/dL High 70-99 [facility] Comment on above: Order Comment: 108 Performed By: #### L 100.0500, L500.2500 ####[facility] [address] [place], [address] Potassium [Moles/Vol] 4.4 mmol/L Normal 3.3-5.1 [facility] Comment on above: Order Comment: 108 Performed By: #### L 100.0500, L500.2500 ####[facility] [address] [place], [address] Sodium [Moles/Vol] 139 mmol/L Normal 133-145 [facility] Comment on above: Order Comment: 108 Performed By: #### L 100.0500, L500.2500 ####[facility] [address] [place], [address] Urea nitrogen [Mass/Vol] 29 mg/dL High 4-19 [facility] Comment on above: Order Comment: 108 Performed By: #### L 100.0500, L500.2500 ####[facility] [address] [place], [address] CBC-Complete Blood Cnt No Di ffon 11-18-2024 Erythrocyte distribution width (RBC) [Ratio] 13.1 % Normal 11.6-14.6 [facility] Comment on above: Order Comment: 108 Performed By: #### L 100.0500, L500.2500 ####[facility] [address] [place], [address] Hematocrit (Bld) [Volume fraction] 37.5 % Normal 37-47 [facility] Comment on above: Order Comment: 108 Performed By: #### L 100.0500, L500.2500 ####[facility] [address] [place], [address] Hemoglobin (Bld) [Mass/Vol] 11.9 g/dL Low 12.0-15.0 [facility] Comment on above: Order Comment: 108 Performed By: #### L 100.0500, L500.2500 ####[facility] [address] [place], [address] MCH (RBC) [Entitic mass] 31.1 pg Normal 27.0-32.0 [facility] Comment on above: Order Comment: 108 Performed By: #### L 100.0500, L500.2500 ####[facility] [address] [place], [address] MCHC (RBC) [Mass/Vol] 31.7 g/dL Low 32-36 [facility] Comment on above: Order Comment: 108 Performed By: #### L 100.0500, L500.2500 ####[facility] [address] [place], [address] MCV (RBC) [Entitic vol] 97.9 fL Normal 81-99 [facility] Comment on above: Order Comment: 108 Performed By: #### L 100.0500, L500.2500 ####[facility] [address] [place], [address] Platelet mean volume (Bld) [Entitic vol] 9.7 fL Normal 6.2-12.0 [facility] Comment on above: Order Comment: 108 Performed By: #### L 100.0500, L500.2500 ####[facility] [address] [place], [address] Platelets (Bld) [#/Vol] 361 10*3/uL Normal 150-450 [facility] Comment on above: Order Comment: 108 Performed By: #### L 100.0500, L500.2500 ####[facility] [address] [place], [address] RBC (Bld) [#/Vol] 3.83 10*6/uL Low 4.2-5.4 [facility] Comment on above: Order Comment: 108 Performed By: #### L 100.0500, L500.2500 ####[facility] [address] [place], [address] RDW SD 46.5 fl High 35.1-43.9 [facility] Comment on above: Order Comment: 108 Performed By: #### L 100.0500, L500.2500 ####[facility] [address] [place], [address] WBC (Bld) [#/Vol] 7.9 10*3/uL Normal 4.4-11.0 [facility] Comment on above: Order Comment: 108 Performed By: #### L 100.0500, L500.2500 ####[facility] [address] [place], [address] CBC AND ELECTRONIC DIFFon Basophils (Bld) [#/Vol] 0.12 10*3/uL 0.00 - 0.15 K/uL [facility] Basophils/100 WBC (Bld) 2 % [facility] Differential cell count method Nom (Bld) Electronic Differential [facility] Eosinophils (Bld) [#/Vol] 0.59 10*3/uL High 0.00 - 0.42 K/uL [facility] Eosinophils/100 WBC (Bld) 10.1 % [facility] Erythrocyte distribution width (RBC) [Ratio] 13 % 10.8 - 14.9 % [facility] Hematocrit (Bld) [Volume fraction] 37.2 % 34.9 - 44.3 % [facility] Hemoglobin (Bld) [Mass/Vol] 11.5 g/dL 11.4 - 15.2 g/dL [facility] Immature granulocytes (Bld) [#/Vol] K/uL NINF - 0.08 K/uL [facility] Immature granulocytes/100 WBC (Bld) 0.3 % [facility] Interpretation and review of laboratory results Abnormal [facility] Lymphocytes (Bld) [#/Vol] 1.4 10*3/uL 1.16 - 3.51 K/uL [facility] Lymphocytes/100 WBC (Bld) 23.9 % [facility] MCH (RBC) [Entitic mass] 30.8 pg 25.9 - 33.9 pg [facility] MCHC (RBC) [Mass/Vol] 30.9 g/dL Low 31.4 - 35.9 g/dL [facility] MCV (RBC) [Entitic vol] 99.7 fL High 79.6 - 97.7 fL [facility] Monocytes (Bld) [#/Vol] 0.43 10*3/uL 0.22 - 0.87 K/uL [facility] Monocytes/100 WBC (Bld) 7.3 % [facility] Neutrophils (Bld) [#/Vol] 3.31 10*3/uL 1.64 - 7.28 K/uL [facility] Nucleated RBC/100 WBC (Bld) [Ratio] 0 % [facility] Platelet mean volume (Bld) [Entitic vol] 9.3 fL 8.5 - 12.2 fL [facility] Platelets (Bld) [#/Vol] 325 10*3/uL 150 - 393 K/uL [facility] RBC (Bld) [#/Vol] 3.73 10*6/uL Low [facility] Segmented neutrophils/100 WBC (Bld) 56.4 % [facility] WBC (Bld) [#/Vol] 5.87 10*3/uL 3.99 - 11.19 K/uL [facility] Basophils (Bld) [#/Vol] 0.12 10*3/uL Normal 0.00-0.15 [facility] Comment on above: Performed By: #### U [id number] #### [facility] (DEFAULT) [address] [place] [address] Basophils/100 WBC (Bld) 2.0 % Normal [facility] Comment on above: Performed By: #### U [id number] #### [facility] (DEFAULT) [address] [place] [address] DIFF STATUS Electronic Differential Normal [facility] Comment on above: Performed By: #### U [id number] #### [facility] (DEFAULT) [address] [address] Eosinophils (Bld) [#/Vol] 0.59 10*3/uL High 0.00-0.42 [facility] Comment on above: Performed By: #### U [id number] #### [facility] (DEFAULT) [address] [address] Eosinophils/100 WBC (Bld) 10.1 % Normal [facility] Comment on above: Performed By: #### U [id number] #### [facility] (DEFAULT) [address] [address] Hematocrit (Bld) [Volume fraction] 37.2 % Normal 34.9-44.3 [facility] Comment on above: Performed By: #### U [id number] #### [facility] (DEFAULT) [address] [address] Hemoglobin (Bld) [Mass/Vol] 11.5 g/dL Normal 11.4-15.2 [facility] Comment on above: Performed By: #### U [id number] #### [facility] (DEFAULT) [address] [address] Immature Grans % 0.3 % Normal [facility] Comment on above: Performed By: #### U [id number] #### [facility] (DEFAULT) [address] [place] [address] Immature Grans Absolute < Normal <=0.08 [facility] Comment on above: Performed By: #### U [id number] #### [facility] (DEFAULT) [address] [address] Lymphocytes (Bld) [#/Vol] 1.40 10*3/uL Normal 1.16-3.51 [facility] Comment on above: Performed By: #### U [id number] #### [facility] (DEFAULT) [address] [address] Lymphocytes/100 WBC (Bld) 23.9 % Normal [facility] Comment on above: Performed By: #### U [id number] #### [facility] (DEFAULT) [address] [address] MCV (RBC) [Entitic vol] 99.7 fL High 79.6-97.7 [facility] Comment on above: Performed By: #### U [id number] #### [facility] (DEFAULT) [address] [address] Mean Cell Hgb 30.8 pg Normal 25.9-33.9 [facility] Comment on above: Performed By: #### U [id number] #### [facility] (DEFAULT) [address] [address] Mean Cell Hgb Conc 30.9 g/dL Low 31.4-35.9 [facility] Comment on above: Performed By: #### U [id number] #### U [facility] (DEFAULT) [address] [address] Monocytes (Bld) [#/Vol] 0.43 10*3/uL Normal 0.22-0.87 [facility] Comment on above: Performed By: #### U [id number] #### [facility] (DEFAULT) [address] [address] Monocytes/100 WBC (Bld) 7.3 % Normal [facility] Comment on above: Performed By: #### U [id number] #### U [facility] (DEFAULT) [address] [place] [address] Nucleated RBC 0.0 /100 WBC Normal <=0.2 [facility] Comment on above: Performed By: #### U [id number] #### U [facility] (DEFAULT) [address] [place] [address] Platelet mean volume (Bld) [Entitic vol] 9.3 fL Normal 8.5-12.2 [facility] Comment on above: Performed By: #### U [id number] #### U [facility] (DEFAULT) [address] [place] [address] Platelets (Bld) [#/Vol] 325 10*3/uL Normal 150-393 [facility] Comment on above: Performed By: #### U [id number] #### [facility] (DEFAULT) [address] [place] [address] RBC (Bld) [#/Vol] 3.73 10*6/uL Low 3.91-5.04 [facility] Comment on above: Performed By: #### U [id number] #### U [facility] (DEFAULT) [address] [place] [address] RBC Distribution 13.0 % Normal 10.8-14.9 [facility] Comment on above: Performed By: #### U [id number] #### U [facility] (DEFAULT) [address] [place] [address] Segs + Bands Auto 56.4 % Normal [facility] Comment on above: Performed By: #### U [id number] #### [facility] (DEFAULT) [address] [place] [address] Segs + Bands,Absolute Auto 3.31 K/uL Normal 1.64-7.28 [facility] Comment on above: Performed By: #### U [id number] #### [facility] (DEFAULT) [address] [place] [address] WBC (Bld) [#/Vol] 5.87 10*3/uL Normal 3.99-11.19 [facility] Comment on above: Performed By: #### U [id number] #### [facility] (DEFAULT) [address] [place] [address] CHEM 7 (LYTES,BUN,CREA,GLUC) on 11-15-2024 Anion gap [Moles/Vol] 11 mmol/L 7 - 17 mmol/L [facility] Chloride [Moles/Vol] 104 mmol/L 98 - 10 8 mmol/L [facility] CO2 [Moles/Vol] 30 mmol/L 21 - 31 mmol/L [facility] Creatinine [Mass/Vol] 0.65 mg/dL 0.50 - 1.20 mg/dL [facility] eGFR, CKD-EPI, Female 86 - PINF [facility] Glucose [Mass/Vol] 114 mg/dL 70 - 179 mg/dL [facility] Interpretation and review of laboratory results Abnormal [facility] Osmolality Calc [Osmolality] 300 [facility] Potassium [Moles/Vol] 4.7 mmol/L 3.5 - 5.0 mmol/L [facility] Sodium [Moles/Vol] 140 mmol/L 135 - 145 mmol/L [facility] Urea nitrogen [Mass/Vol] 26 mg/dL High 7 - 25 mg/dL [facility] Urea nitrogen/Creatinine [Mass ratio] 40 mg/mg [facility] Anion gap [Moles/Vol] 11 mmol/L Normal 7-17 Nji [facility] Comment on above: Performed By: #### U R #### [facility] (DEFAULT) [address] [place] [address] Chloride [Moles/Vol] 104 mmol/L Normal 98-108 [facility] Comment on above: Performed By: #### U R #### [facility] (DEFAULT) [address] [place] [address] CO2 [Moles/Vol] 30 mmol/L Normal 21-31 [facility] Comment on above: Performed By: #### U R #### [facility] (DEFAULT) [address] [address] Creatinine [Mass/Vol] 0.65 mg/dL Normal 0.50-1.20 [facility] Comment on above: Performed By: #### U R #### [facility] (DEFAULT) [address] [place] [address] GFR/1.73 sq M.predicted among non-blacks MDRD (S/P/Bld) [Vol rate/Area] 86 mL/min/{1.73_m2} Normal >=60 [facility] Comment on above: Result Comment: Repo rted eGFR is based on the CKD-EPI 2020 equation using creatinine, age, and sex. Performed By: #### U R #### [facility] (DEFAULT) [address] [place] [address] Glucose [Mass/Vol] 114 mg/dL Normal Nonfastin g : 70-179 mg/dL; Fastin-99 [facility] Comment on above: Performed By: #### U R #### [facility] (DEFAULT) [address] [place] [address] Osmolality [Osmolality] 300 mosm/kg Normal 278-305 [facility] Comment on above: Performed By: #### U R #### [facility] (DEFAULT) [address] [address] Potassium [Moles/Vol] 4.7 mmol/L Normal 3.5-5.0 [facility] Comment on above: Performed By: #### U R #### [facility] (DEFAULT) [address] [address] Sodium [Moles/Vol] 140 mmol/L Normal 135-145 [facility] Comment on above: Performed By: #### U R #### [facility] (DEFAULT) [address] [address] Urea nitrogen [Mass/Vol] 26 mg/dL High 7-25 [facility] Comment on above: Performed By: #### U R #### [facility] (DEFAULT) [address] [place] [address] Urea nitrogen/Creatinine [Mass ratio] 40 mg/mg Normal [facility] Comment on above: Performed By: #### U R #### [facility] (DEFAULT) [address] [place] [address] HEPATIC FUNCTION PANELon Albumin [Mass/Vol] 3 g/dL Low 3.5 - 5.0 g/dL [facility] ALP [Catalytic activity/Vol] 76 U/L 32 - 126 U/L [facility] ALT [Catalytic activity/Vol] 11 U/L 9 - 48 U/L [facility] AST [Catalytic activity/Vol] 14 U/L 10 - 39 U/L [facility] Bilirubin [Mass/Vol] 0.2 mg/dL [facility] - 1.5 mg/dL [facility] Bilirubin.direct [Mass/Vol] mg/dL [facility] - 0.3 mg/dL [facility] Interpretation and review of laboratory results Abnormal [facility] Protein [Mass/Vol] 5.9 g/dL Low 6.4 - 8.3 g/dL [facility] Albumin [Mass/Vol] 3.0 g/dL Low 3.5-5.0 [facility] Comment on above: Performed By: #### U [id number] #### U [facility] (DEFAULT) [address] [place] [address] ALP [Catalytic activity/Vol] 76 U/L Normal 32-126 [facility] Comment on above: Performed By: #### U [id number] #### [facility] (DEFAULT) [address] [place] [address] ALT [Catalytic activity/Vol] 11 U/L Normal 9-48 [facility] Comment on above: Performed By: #### U [id number] #### [facility] (DEFAULT) [address] [place] [address] AST [Catalytic activity/Vol] 14 U/L Normal 10-39 [facility] Comment on above: Performed By: #### U [id number] #### [facility] (DEFAULT) [address] [place] [address] Bilirubin [Mass/Vol] 0.2 mg/dL Normal <1.5 [facility] Comment on above: Performed By: #### U [id number] #### [facility] (DEFAULT) [address] [place] [address] Bilirubin Direct < Normal <0.3 [facility] Comment on above: Performed By: #### U [id number] #### [facility] (DEFAULT) [address] [place] [address] Protein [Mass/Vol] 5.9 g/dL Low 6.4-8.3 [facility] Comment on above: Performed By: #### U [id number] #### [facility] (DEFAULT) [address] [place] [address] CARDIAC RHYTHMon 11-14-2024 [facility] CBC AND ELECTRONIC DIFFon Basophils (Bld) [#/Vol] 0.09 10*3/uL 0.00 - 0.15 K/uL [facility] Basophils/100 WBC (Bld) 0.9 % [facility] Differential cell count method Nom (Bld) Electronic Differential [facility] Eosinophils (Bld) [#/Vol] 0.34 10*3/uL 0.00 - 0.42 K/uL [facility] Eosinophils/100 WBC (Bld) 3.2 % [facility] Erythrocyte distribution width (RBC) [Ratio] 12.8 % 10.8 - 14.9 % [facility] Hematocrit (Bld) [Volume fraction] 35.6 % 34.9 - 44.3 % [facility] Hemoglobin (Bld) [Mass/Vol] 11.3 g/dL Low 11.4 - 15.2 g/dL [facility] Immature granulocytes (Bld) [#/Vol] K/uL NINF - 0.08 K/uL [facility] Immature granulocytes/100 WBC (Bld) 0.3 % [facility] Interpretation and review of laboratory results Abnormal [facility] Lymphocytes (Bld) [#/Vol] 1.14 10*3/uL Low 1.16 - 3.51 K/uL [facility] Lymphocytes/100 WBC (Bld) 10.8 % [facility] MCH (RBC) [Entitic mass] 30.7 pg 25.9 - 33.9 pg [facility] MCHC (RBC) [Mass/Vol] 31.7 g/dL 31.4 - 35.9 g/dL [facility] MCV (RBC) [Entitic vol] 96.7 fL 79.6 - 97.7 fL [facility] Monocytes (Bld) [#/Vol] 0.84 10*3/uL 0.22 - 0.87 K/uL [facility] Monocytes/100 WBC (Bld) 8 % [facility] Neutrophils (Bld) [#/Vol] 8.11 10*3/uL High 1.64 - 7.28 K/uL [facility] Nucleated RBC/100 WBC (Bld) [Ratio] 0 % [facility] Platelet mean volume (Bld) [Entitic vol] 9.9 fL 8.5 - 12.2 fL [facility] Platelets (Bld) [#/Vol] 328 10*3/uL 150 - 393 K/uL [facility] RBC (Bld) [#/Vol] 3.68 10*6/uL Low [facility] Segmented neutrophils/100 WBC (Bld) 76.8 % [facility] WBC (Bld) [#/Vol] 10.55 10*3/uL 3.99 - 11.19 K/uL [facility] Basophils (Bld) [#/Vol] 0.09 10*3/uL Normal 0.00-0.15 [facility] Comment on above: Performed By: #### T YPEC #### [facility] (DEFAULT) [address] [address] Basophils/100 WBC (Bld) 0.9 % Normal [facility] Comment on above: Performed By: #### T YPEC #### [facility] (DEFAULT) [address] [address] DIFF STATUS Electronic Differential Normal [facility] Comment on above: Performed By: #### T YPEC #### [facility] (DEFAULT) [address] [id number] Eosinophils (Bld) [#/Vol] 0.34 10*3/uL Normal 0.00-0.42 [facility] Comment on above: Performed By: #### T YPEC #### [facility] (DEFAULT) [address] [address] Eosinophils/100 WBC (Bld) 3.2 % Normal [facility] Comment on above: Performed By: #### T YPEC #### [facility] (DEFAULT) [address] [address] Hematocrit (Bld) [Volume fraction] 35.6 % Normal 34.9-44.3 [facility] Comment on above: Performed By: #### T YPEC #### [facility] (DEFAULT) [address] [address] Hemoglobin (Bld) [Mass/Vol] 11.3 g/dL Low 11.4-15.2 [facility] Comment on above: Performed By: #### T YPEC #### [facility] (DEFAULT) [address] [address] Immature Grans % 0.3 % Normal [facility] Comment on above: Performed By: #### T YPEC #### [facility] (DEFAULT) [address] [address] Immature Grans Absolute < Normal <=0.08 [facility] Comment on above: Performed By: #### T YPEC #### [facility] (DEFAULT) [address] [address] Lymphocytes (Bld) [#/Vol] 1.14 10*3/uL Low 1.16-3.51 [facility] Comment on above: Performed By: #### T YPEC #### U [facility] (DEFAULT) [address] [address] Lymphocytes/100 WBC (Bld) 10.8 % Normal [facility] Comment on above: Performed By: #### T YPEC #### U [facility] (DEFAULT) [address] [address] MCV (RBC) [Entitic vol] 96.7 fL Normal 79.6-97.7 [facility] Comment on above: Performed By: #### T YPEC #### [facility] (DEFAULT) [address] [address] Mean Cell Hgb 30.7 pg Normal 25.9-33.9 [facility] Comment on above: Performed By: #### T YPEC #### [facility] (DEFAULT) [address] [address] Mean Cell Hgb Conc 31.7 g/dL Normal 31.4-35.9 [facility] Comment on above: Performed By: #### T YPEC #### [facility] (DEFAULT) [address] [address] Monocytes (Bld) [#/Vol] 0.84 10*3/uL Normal 0.22-0.87 [facility] Comment on above: Performed By: #### T YPEC #### U [facility] (DEFAULT) [address] [address] Monocytes/100 WBC (Bld) 8.0 % Normal [facility] Comment on above: Performed By: #### T YPEC #### [facility] (DEFAULT) [address] [address] Nucleated RBC 0.0 /100 WBC Normal <=0.2 [facility] Comment on above: Performed By: #### T YPEC #### U [facility] (DEFAULT) [address] [address] Platelet mean volume (Bld) [Entitic vol] 9.9 fL Normal 8.5-12.2 [facility] Comment on above: Performed By: #### T YPEC #### [facility] (DEFAULT) [address] [address] Platelets (Bld) [#/Vol] 328 10*3/uL Normal 150-393 [facility] Comment on above: Performed By: #### T YPEC #### [facility] (DEFAULT) [address] [address] RBC (Bld) [#/Vol] 3.68 10*6/uL Low 3.91-5.04 [facility] Comment on above: Performed By: #### T YPEC #### [facility] (DEFAULT) [address] [address] RBC Distribution 12.8 % Normal 10.8-14.9 [facility] Comment on above: Performed By: #### T YPEC #### [facility] (DEFAULT) [address] [address] Segs + Bands Auto 76.8 % Normal [facility] Comment on above: Performed By: #### T YPEC #### [facility] (DEFAULT) [address] [address] Segs + Bands,Absolute Auto 8.11 K/uL High 1.64-7.28 [facility] Comment on above: Performed By: #### T YPEC #### [facility] (DEFAULT) [address] [place] [address] WBC (Bld) [#/Vol] 10.55 10*3/uL Normal 3.99-11.19 [facility] Comment on above: Performed By: #### T YPEC #### [facility] (DEFAULT) [address] [place] [address] CHEM 7 (LYTES,BUN,CREA,GLUC) on 11-12-2024 Anion gap [Moles/Vol] 13 mmol/L 7 - 17 mmol/L [facility] Chloride [Moles/Vol] 101 mmol/L 98 - 10 8 mmol/L [facility] CO2 [Moles/Vol] 26 mmol/L 21 - 31 mmol/L [facility] Creatinine [Mass/Vol] 0.59 mg/dL 0.50 - 1.20 mg/dL [facility] eGFR, CKD-EPI, Female 88 - PINF [facility] Glucose [Mass/Vol] 125 mg/dL 70 - 179 mg/dL [facility] Interpretation and review of laboratory results Abnormal [facility] Osmolality Calc [Osmolality] 291 [facility] Potassium [Moles/Vol] 4.9 mmol/L 3.5 - 5.0 mmol/L [facility] Sodium [Moles/Vol] 135 mmol/L 135 - 145 mmol/L [facility] Urea nitrogen [Mass/Vol] 26 mg/dL High 7 - 25 mg/dL [facility] Urea nitrogen/Creatinine [Mass ratio] 44 mg/mg [facility] Anion gap [Moles/Vol] 13 mmol/L Normal 7-17 [facility] Comment on above: Performed By: #### U R #### [facility] (DEFAULT) [address] [place] [address] Chloride [Moles/Vol] 101 mmol/L Normal 98-108 [facility] Comment on above: Performed By: #### U R #### [facility] (DEFAULT) [address] [place] [address] CO2 [Moles/Vol] 26 mmol/L Normal 21-31 [facility] Comment on above: Performed By: #### U R #### [facility] (DEFAULT) [address] [address] Creatinine [Mass/Vol] 0.59 mg/dL Normal 0.50-1.20 [facility] Comment on above: Performed By: #### U R #### [facility] (DEFAULT) [address] [place] [address] GFR/1.73 sq M.predicted among non-blacks MDRD (S/P/Bld) [Vol rate/Area] 88 mL/min/{1.73_m2} Normal >=60 [facility] Comment on above: Result Comment: Repo rted eGFR is based on the CKD-EPI 2020 equation using creatinine, age, and sex. Performed By: #### U R #### [facility] (DEFAULT) [address] [address] Glucose [Mass/Vol] 125 mg/dL Normal Nonfastin g : 70-179 mg/dL; Fastin-99 [facility] Comment on above: Performed By: #### U R #### [facility] (DEFAULT) [address] [place] [address] Osmolality [Osmolality] 291 mosm/kg Normal 278-305 [facility] Comment on above: Performed By: #### U R #### [facility] (DEFAULT) [address] [address] Potassium [Moles/Vol] 4.9 mmol/L Normal 3.5-5.0 [facility] Comment on above: Performed By: #### U R #### [facility] (DEFAULT) [address] [address] Sodium [Moles/Vol] 135 mmol/L Normal 135-145 [facility] Comment on above: Performed By: #### U R #### [facility] (DEFAULT) [address] [address] Urea nitrogen [Mass/Vol] 26 mg/dL High 7-25 [facility] Comment on above: Performed By: #### U R #### [facility] (DEFAULT) [address] [place] [address] Urea nitrogen/Creatinine [Mass ratio] 44 mg/mg Normal [facility] Comment on above: Performed By: #### U R #### [facility] (DEFAULT) [address] [place] [address] INTERVENTIONAL UPPER ENDOSCO PYon 11-12-2024 Body surface area Derived from formula 1.53 m2 [facility] LAB, [facility] Radiology Study observation (narrative) [facility] PT,INR,PTTon 11-12-2024 aPTT Coag (PPP) [Time] 29.9 s [facility] INR Coag (Bld) [Relative time] 1.1 {INR} 0.9 - 1.1 [facility] Interpretation and review of laboratory results Normal [facility] PT Coag (PPP) [Time] 13.7 s [facility] aPTT Coag (Bld) [Time] 29.9 s Normal 24.0-34.3 [facility] Comment on above: Performed By: #### U [id number] #### [facility] (DEFAULT) [address] [place] [address] INR Coag (PPP) [Relative time] 1.1 {INR} Normal 0.9-1.1 [facility] Comment on above: Performed By: #### U [id number] #### [facility] (DEFAULT) [address] [place] [address] PT Coag (PPP) [Time] 13.7 s Normal 11.9-14.2 [facility] Comment on above: Performed By: #### U [id number] #### [facility] (DEFAULT) [address] [place] [address] Portable XR Chest Viewson RADIOLOGY RADIOLOGY [facility] Radiology Study observation (narrative) [facility] Portable XR Chest ViewsOrder ed By: Andrea Mata on 11-12-2024 [facility] Work Phone: VENOUS BLOOD GASon 5 Base excess Calc (Bld) [Moles/Vol] 2.9 mmol/L -3.0 - 3.0 mmol/L [facility] CO2 (Bld) [Partial pressure] 41 mm[Hg] [facility] HCO3 (Bld) [Moles/Vol] 27 mmol/L 22 - 29 mmol/L [facility] Interpretation and review of laboratory results Abnormal [facility] Oxygen (Bld) [Partial pressure] 64 mm[Hg] mm Hg [facility] Oxygen saturation in Blood 94 % High 70 - 80 % [facility] pH (Bld) 7.43 [pH] 7.32 - 7.43 [facility] Specimen source Nom (Unsp spec) Venous [facility] Base Excess 2.9 mmol/L Normal -3.0-3.0 [facility] Comment on above: Performed By: #### G [id number] #### [facility] (DEFAULT) [address] [address] HCO3 (Bld) [Moles/Vol] 27 mmol/L Normal 22-29 [facility] Comment on above: Performed By: #### G ASV5 #### [facility] (DEFAULT) [address] [place] [address] Oxygen saturation in Blood 94 % High 70-80 [facility] Comment on above: Performed By: #### G ASV5 #### [facility] (DEFAULT) [address] [place] [address] pCO2, Venous 41 mm Hg Normal 36-52 [facility] Comment on above: Performed By: #### G ASV5 #### [facility] (DEFAULT) [address] [place] [address] pH, Venous 7.43 Normal 7.32-7.43 [facility] Comment on above: Performed By: #### G ASV5 #### [facility] (DEFAULT) [address] [place] [address] pO2, Venous 64 mm Hg Normal [facility] Comment on above: Result Comment: Veno us pO2 is not recommended for the evaluation of oxygen status, clinical correlation is recommended. Performed By: #### G ASV5 #### [facility] (DEFAULT) [address] [place] [address] Specimen type Nom (Spec) Venous Normal [facility] Comment on above: Performed By: #### G ASV5 #### U [facility] (DEFAULT) [address] [place] [address] XR CHEST 1 VIEW PORTABLEon 0 11-12-2024 [...] unremarkable. IMPRESSION: No acute cardiopulmonary findings Normal [facility] CT HEAD WITHOUT CONTRASTon 0 11-11-2024 CT [...] have reviewed and approved this report. Normal [facility] CT Head WO contraston 2024 RADIOLOGY RADIOLOGY [facility] Radiology Study observation (narrative) [facility] CT Head WO contrastOrdered B y: Ernie Cornelius on 11-11-2024 [facility] Work Phone: Portable XR Chest Viewson RADIOLOGY RADIOLOGY [facility] Radiology Study observation (narrative) [facility] Portable XR Chest ViewsOrder ed By: Monroe Clark on 11-11-2024 [facility] Work Phone: XR CHEST 1 VIEW [...] have reviewed and approved this report. Normal [facility] CNPNon 11-10-2024 CNPN Telephone (FAMPWS) BHARTIBEHZAD ([id number]) 1940 F Date Time Provider Department 11/10/[facility] During [facility] visit today, we recorded the following information about you: Molly Adame RN 11/10/2024 11:04 AM Signed Crystal Stroke Nurse Navigator with [facility] and reports Pt's daughter wanted her PCP to refer Pt to [facility]. She reports they like them to start 4-6 weeks after discharge, and she hasn't been discharged yet. She is going to fax over their [facility] in the [place] to fax # [phone]. JESIKA Garcia Lisa, MA 11/11/2024 9:20 AM Signed Fax received and placed on provider desk Winsome Butler MA November 11, 2024 9:20 AM Allergies As of Date: 11/10/2024 Noted Allergy Reaction ADHESIVE TAPE (ROSINS) 08/27/2011 2 - Rash BACTRIM (SULFAMETHOXAZOLE-TRIMETH*0 09/25/2018 2 - Rash MACROBID (NITROFURANTOIN MONOHYD/*09/25/2018 2 - Rash FGHHEFF-RMS-QXY REDUCTASE INHIBIT*10/06/2014 5 - Intolerance Comments: severe leg pain Date Reviewed: 10/13/2024 Reviewed by: Yola Nj COTA/Filippo - Fully Assessed Reason for Visit: Fax [facility] in [place] [Other] Prescriptions as of 11/12/2024 - [...] osteoarthritis of right hip [M16.11] 02/27/2017 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 (HCC) [MLK4448] 07/28/2017 07/06/2018 Collagenous colitis [K52.831] 12/21/2018 IBS (irritable bowel syndrome) [K58.9] 12/21/2018 Hiatal hernia [K44.9] 09/11/2020 Fall from standing [W19.XXXA] 06/05/2021 Rotator cuff tear arthropathy, left [M75.102, M*10/29/2021 Paroxysmal atrial fibrillation (HCC) [I48.0] 04/11/2022 Primary hypertension [I10] 12/30/2022 Acute pain of right shoulder [M25.511] 04/16/2023 Severe pain of left shoulder [M25.512] 04/16/2023 Cervicalgia [M54.2] 04/16/2023 Encounter Status:Closed by WINSOME BUTLER on 11/12/24 Normal [facility] Portable XR Chest Viewson RADIOLOGY RADIOLOGY U [facility] Radiology Study observation (narrative) [facility] Portable XR Chest ViewsOrder ed By: Sarahy Reyes on 11-10-2024 [facility] Work Phone: XR CHEST 1 VIEW [...] have reviewed and approved this report. Normal [facility] CBC AND ELECTRONIC DIFFon Basophils (Bld) [#/Vol] 0.11 10*3/uL 0.00 - 0.15 K/uL [facility] Basophils/100 WBC (Bld) 1.2 % [facility] Differential cell count method Nom (Bld) [facility] Eosinophils (Bld) [#/Vol] 0.72 10*3/uL High 0.00 - 0.42 K/uL [facility] Eosinophils/100 WBC (Bld) 8 % [facility] Erythrocyte distribution width (RBC) [Ratio] 12.8 % 10.8 - 14.9 % [facility] Hematocrit (Bld) [Volume fraction] 37.7 % 34.9 - 44.3 % [facility] Hemoglobin (Bld) [Mass/Vol] 12 g/dL 11.4 - 15.2 g/dL [facility] Immature granulocytes (Bld) [#/Vol] 0.07 10*3/uL NINF - 0.08 K/uL [facility] Immature granulocytes/100 WBC (Bld) 0.8 % [facility] Interpretation and review of laboratory results Abnormal [facility] Lymphocytes (Bld) [#/Vol] 1.78 10*3/uL 1.16 - 3.51 K/uL [facility] Lymphocytes/100 WBC (Bld) 19.7 % [facility] MCH (RBC) [Entitic mass] 30.6 pg 25.9 - 33.9 pg [facility] MCHC (RBC) [Mass/Vol] 31.8 g/dL 31.4 - 35.9 g/dL [facility] MCV (RBC) [Entitic vol] 96.2 fL 79.6 - 97.7 fL [facility] Monocytes (Bld) [#/Vol] 0.63 10*3/uL 0.22 - 0.87 K/uL [facility] Monocytes/100 WBC (Bld) 7 % [facility] Neutrophils (Bld) [#/Vol] 5.74 10*3/uL 1.64 - 7.28 K/uL [facility] Nucleated RBC/100 WBC (Bld) [Ratio] 0 % [facility] Platelet mean volume (Bld) [Entitic vol] 9.1 fL 8.5 - 12.2 fL [facility] Platelets (Bld) [#/Vol] 427 10*3/uL High 150 - 393 K/uL [facility] RBC (Bld) [#/Vol] 3.92 10*6/uL [facility] Segmented neutrophils/100 WBC (Bld) 63.3 % [facility] WBC (Bld) [#/Vol] 9.05 10*3/uL 3.99 - 11.19 K/uL [facility] Basophils (Bld) [#/Vol] 0.11 10*3/uL Normal 0.00-0.15 [facility] Comment on above: Performed By: #### C HM7 #### [facility] (DEFAULT) [address] [address] Basophils/100 WBC (Bld) 1.2 % Normal [facility] Comment on above: Performed By: #### C HM7 #### [facility] (DEFAULT) [address] [address] DIFF STATUS Electronic Differential Normal [facility] Comment on above: Performed By: #### C HM7 #### [facility] (DEFAULT) [address] [place] [address] Eosinophils (Bld) [#/Vol] 0.72 10*3/uL High 0.00-0.42 [facility] Comment on above: Performed By: #### C HM7 #### [facility] (DEFAULT) [address] [address] Eosinophils/100 WBC (Bld) 8.0 % Normal [facility] Comment on above: Performed By: #### C HM7 #### [facility] (DEFAULT) [address] [address] Hematocrit (Bld) [Volume fraction] 37.7 % Normal 34.9-44.3 [facility] Comment on above: Performed By: #### C HM7 #### [facility] (DEFAULT) [address] [place] [address] Hemoglobin (Bld) [Mass/Vol] 12.0 g/dL Normal 11.4-15.2 [facility] Comment on above: Performed By: #### C HM7 #### [facility] (DEFAULT) [address] [address] Immature Grans % 0.8 % Normal [facility] Comment on above: Performed By: #### C HM7 #### [facility] (DEFAULT) [address] [address] Immature Grans Absolute 0.07 K/uL Normal <=0.08 [facility] Comment on above: Performed By: #### C HM7 #### [facility] (DEFAULT) [address] [address] Lymphocytes (Bld) [#/Vol] 1.78 10*3/uL Normal 1.16-3.51 [facility] Comment on above: Performed By: #### C HM7 #### [facility] (DEFAULT) [address] [address] Lymphocytes/100 WBC (Bld) 19.7 % Normal [facility] Comment on above: Performed By: #### C HM7 #### [facility] (DEFAULT) [address] [address] MCV (RBC) [Entitic vol] 96.2 fL Normal 79.6-97.7 [facility] Comment on above: Performed By: #### C HM7 #### [facility] (DEFAULT) [address] [address] Mean Cell Hgb 30.6 pg Normal 25.9-33.9 [facility] Comment on above: Performed By: #### C HM7 #### [facility] (DEFAULT) [address] [address] Mean Cell Hgb Conc 31.8 g/dL Normal 31.4-35.9 [facility] Comment on above: Performed By: #### C HM7 #### [facility] (DEFAULT) [address] [place] [address] Monocytes (Bld) [#/Vol] 0.63 10*3/uL Normal 0.22-0.87 [facility] Comment on above: Performed By: #### C HM7 #### [facility] (DEFAULT) [address] [place] [address] Monocytes/100 WBC (Bld) 7.0 % Normal [facility] Comment on above: Performed By: #### C HM7 #### [facility] (DEFAULT) [address] [place] [address] Nucleated RBC 0.0 /100 WBC Normal <=0.2 [facility] Comment on above: Performed By: #### C HM7 #### [facility] (DEFAULT) [address] [place] [address] Platelet mean volume (Bld) [Entitic vol] 9.1 fL Normal 8.5-12.2 [facility] Comment on above: Performed By: #### C HM7 #### [facility] (DEFAULT) [address] [place] [address] Platelets (Bld) [#/Vol] 427 10*3/uL High 150-393 [facility] Comment on above: Performed By: #### C HM7 #### [facility] (DEFAULT) [address] [place] [address] RBC (Bld) [#/Vol] 3.92 10*6/uL Normal 3.91-5.04 [facility] Comment on above: Performed By: #### C HM7 #### [facility] (DEFAULT) [address] [place] [address] RBC Distribution 12.8 % Normal 10.8-14.9 [facility] Comment on above: Performed By: #### C HM7 #### [facility] (DEFAULT) [address] [place] [address] Segs + Bands Auto 63.3 % Normal [facility] Comment on above: Performed By: #### C HM7 #### [facility] (DEFAULT) [address] [place] [address] Segs + Bands,Absolute Auto 5.74 K/uL Normal 1.64-7.28 [facility] Comment on above: Performed By: #### C HM7 #### [facility] (DEFAULT) [address] [place] [address] WBC (Bld) [#/Vol] 9.05 10*3/uL Normal 3.99-11.19 [facility] Comment on above: Performed By: #### C HM7 #### [facility] (DEFAULT) [address] [place] [address] CHEM 7 (LYTES,BUN,CREA,GLUC) on 11-09-2024 Anion gap [Moles/Vol] 12 mmol/L 7 - 17 mmol/L [facility] Chloride [Moles/Vol] 101 mmol/L 98 - 10 8 mmol/L [facility] CO2 [Moles/Vol] 29 mmol/L 21 - 31 mmol/L [facility] Creatinine [Mass/Vol] 0.76 mg/dL 0.50 - 1.20 mg/dL [facility] eGFR, CKD-EPI, Female 76 - PINF [facility] Glucose [Mass/Vol] 107 mg/dL 70 - 179 mg/dL [facility] Interpretation and review of laboratory results Abnormal [facility] Osmolality Calc [Osmolality] 295 [facility] Potassium [Moles/Vol] 4.5 mmol/L 3.5 - 5.0 mmol/L [facility] Sodium [Moles/Vol] 137 mmol/L 135 - 145 mmol/L [facility] Urea nitrogen [Mass/Vol] 32 mg/dL High 7 - 25 mg/dL [facility] Urea nitrogen/Creatinine [Mass ratio] 42 mg/mg [facility] Anion gap [Moles/Vol] 12 mmol/L Normal 7-17 [facility] Comment on above: Performed By: #### C HM7 #### [facility] (DEFAULT) [address] [place] [address] Chloride [Moles/Vol] 101 mmol/L Normal 98-108 [facility] Comment on above: Performed By: #### C HM7 #### [facility] (DEFAULT) [address] [place] [address] CO2 [Moles/Vol] 29 mmol/L Normal 21-31 [facility] Comment on above: Performed By: #### C HM7 #### [facility] (DEFAULT) [address] [place] [address] Creatinine [Mass/Vol] 0.76 mg/dL Normal 0.50-1.20 [facility] Comment on above: Performed By: #### C HM7 #### [facility] (DEFAULT) [address] [place] [address] GFR/1.73 sq M.predicted among non-blacks MDRD (S/P/Bld) [Vol rate/Area] 76 mL/min/{1.73_m2} Normal >=60 [facility] Comment on above: Result Comment: Repo rted eGFR is based on the CKD-EPI 2020 equation using creatinine, age, and sex. Performed By: #### C HM7 #### U [facility] (DEFAULT) [address] [place] [address] Glucose [Mass/Vol] 107 mg/dL Normal Nonfastin g : 70-179 mg/dL; Fastin-99 [facility] Comment on above: Performed By: #### C HM7 #### U [facility] (DEFAULT) [address] [place] [address] Osmolality [Osmolality] 295 mosm/kg Normal 278-305 [facility] Comment on above: Performed By: #### C HM7 #### U [facility] (DEFAULT) [address] [place] [address] Potassium [Moles/Vol] 4.5 mmol/L Normal 3.5-5.0 [facility] Comment on above: Performed By: #### C HM7 #### [facility] (DEFAULT) [address] [place] [address] Sodium [Moles/Vol] 137 mmol/L Normal 135-145 [facility] Comment on above: Performed By: #### C HM7 #### [facility] (DEFAULT) [address] [place] [address] Urea nitrogen [Mass/Vol] 32 mg/dL High 7- [facility] Comment on above: Performed By: #### C HM7 #### [facility] (DEFAULT) [address] [place] [address]105 Urea nitrogen/Creatinine [Mass ratio] 42 mg/mg Normal [facility] Comment on above: Performed By: #### C HM7 #### [facility] (DEFAULT) [address] [place] [address] FLEXIBLE ENDOSCOPIC EVALUATI ON OF SWALLOWINGon 11-09-2024 RADIOLOGY [facility] CBC AND ELECTRONIC DIFFon Basophils (Bld) [#/Vol] 0.11 10*3/uL 0.00 - 0.15 K/uL [facility] Basophils/100 WBC (Bld) 1.5 % [facility] Differential cell count method Nom (Bld) Electronic Differential [facility] Eosinophils (Bld) [#/Vol] 0.76 10*3/uL High 0.00 - 0.42 K/uL [facility] Eosinophils/100 WBC (Bld) 10.3 % [facility] Erythrocyte distribution width (RBC) [Ratio] 12.8 % 10.8 - 14.9 % [facility] Hematocrit (Bld) [Volume fraction] 37.5 % 34.9 - 44.3 % [facility] Hemoglobin (Bld) [Mass/Vol] 12 g/dL 11.4 - 15.2 g/dL [facility] Immature granulocytes (Bld) [#/Vol] 0.05 10*3/uL NINF - 0.08 K/uL [facility] Immature granulocytes/100 WBC (Bld) 0.7 % [facility] Interpretation and review of laboratory results Abnormal [facility] Lymphocytes (Bld) [#/Vol] 1.18 10*3/uL 1.16 - 3.51 K/uL [facility] Lymphocytes/100 WBC (Bld) 16 % [facility] MCH (RBC) [Entitic mass] 30.6 pg 25.9 - 33.9 pg [facility] MCHC (RBC) [Mass/Vol] 32 g/dL 31.4 - 35.9 g/dL [facility] MCV (RBC) [Entitic vol] 95.7 fL 79.6 - 97.7 fL [facility] Monocytes (Bld) [#/Vol] 0.38 10*3/uL 0.22 - 0.87 K/uL [facility] Monocytes/100 WBC (Bld) 5.1 % [facility] Neutrophils (Bld) [#/Vol] 4.9 10*3/uL 1.64 - 7.28 K/uL [facility] Nucleated RBC/100 WBC (Bld) [Ratio] 0 % [facility] Platelet mean volume (Bld) [Entitic vol] 9.1 fL 8.5 - 12.2 fL [facility] Platelets (Bld) [#/Vol] 408 10*3/uL High 150 - 393 K/uL [facility] RBC (Bld) [#/Vol] 3.92 10*6/uL [facility] Segmented neutrophils/100 WBC (Bld) 66.4 % [facility] WBC (Bld) [#/Vol] 7.38 10*3/uL 3.99 - 11.19 K/uL [facility] Basophils (Bld) [#/Vol] 0.11 10*3/uL Normal 0.00-0.15 [facility] Comment on above: Performed By: #### U [id number] #### U [facility] (DEFAULT) [address] [place] [address] Basophils/100 WBC (Bld) 1.5 % Normal [facility] Comment on above: Performed By: #### U [id number] #### [facility] (DEFAULT) [address] [place] [address] DIFF STATUS Electronic Differential Normal [facility] Comment on above: Performed By: #### U [id number] #### U [facility] (DEFAULT) [address] [place] [address] Eosinophils (Bld) [#/Vol] 0.76 10*3/uL High 0.00-0.42 [facility] Comment on above: Performed By: #### U [id number] #### [facility] (DEFAULT) [address] [address] Eosinophils/100 WBC (Bld) 10.3 % Normal [facility] Comment on above: Performed By: #### U [id number] #### [facility] (DEFAULT) [address] [address] Hematocrit (Bld) [Volume fraction] 37.5 % Normal 34.9-44.3 [facility] Comment on above: Performed By: #### U [id number] #### [facility] (DEFAULT) [address] [place] [address] Hemoglobin (Bld) [Mass/Vol] 12.0 g/dL Normal 11.4-15.2 [facility] Comment on above: Performed By: #### U [id number] #### [facility] (DEFAULT) [address] [address] Immature Grans % 0.7 % Normal [facility] Comment on above: Performed By: #### U [id number] #### [facility] (DEFAULT) [address] [place] [address] Immature Grans Absolute 0.05 K/uL Normal <=0.08 [facility] Comment on above: Performed By: #### U [id number] #### [facility] (DEFAULT) [address] [address] Lymphocytes (Bld) [#/Vol] 1.18 10*3/uL Normal 1.16-3.51 [facility] Comment on above: Performed By: #### U [id number] #### [facility] (DEFAULT) [address] [address] Lymphocytes/100 WBC (Bld) 16.0 % Normal [facility] Comment on above: Performed By: #### U [id number] #### [facility] (DEFAULT) [address] [address] MCV (RBC) [Entitic vol] 95.7 fL Normal 79.6-97.7 [facility] Comment on above: Performed By: #### U [id number] #### [facility] (DEFAULT) [address] [address] Mean Cell Hgb 30.6 pg Normal 25.9-33.9 [facility] Comment on above: Performed By: #### U [id number] #### [facility] (DEFAULT) [address] [address] Mean Cell Hgb Conc 32.0 g/dL Normal 31.4-35.9 [facility] Comment on above: Performed By: #### U [id number] #### [facility] (DEFAULT) [address] [address] Monocytes (Bld) [#/Vol] 0.38 10*3/uL Normal 0.22-0.87 [facility] Comment on above: Performed By: #### U [id number] #### [facility] (DEFAULT) [address] [address] Monocytes/100 WBC (Bld) 5.1 % Normal [facility] Comment on above: Performed By: #### U [id number] #### [facility] (DEFAULT) [address] [place] [address]36 Nucleated RBC 0.0 /100 WBC Normal <=0.2 [facility] Comment on above: Performed By: #### U [id number] #### U [facility] (DEFAULT) [address] [place] [address] Platelet mean volume (Bld) [Entitic vol] 9.1 fL Normal 8.5-12.2 [facility] Comment on above: Performed By: #### U [id number] #### [facility] (DEFAULT) [address] [place] [address] Platelets (Bld) [#/Vol] 408 10*3/uL High 150-393 [facility] Comment on above: Performed By: #### U [id number] #### [facility] (DEFAULT) [address] [place] [address] RBC (Bld) [#/Vol] 3.92 10*6/uL Normal 3.91-5.04 [facility] Comment on above: Performed By: #### U [id number] #### [facility] (DEFAULT) [address] [place] [address]66 RBC Distribution 12.8 % Normal 10.8-14.9 [facility] Comment on above: Performed By: #### U [id number] #### [facility] (DEFAULT) [address] [place] [address]753 Segs + Bands Auto 66.4 % Normal [facility] Comment on above: Performed By: #### U [id number] #### [facility] (DEFAULT) [address] [place] [address]87 Segs + Bands,Absolute Auto 4.90 K/uL Normal 1.64-7.28 [facility] Comment on above: Performed By: #### U [id number] #### [facility] (DEFAULT) [address] [place] [address]3 WBC (Bld) [#/Vol] 7.38 10*3/uL Normal 3.99-11.19 [facility] Comment on above: Performed By: #### U [id number] #### [facility] (DEFAULT) [address] [place] [address] CHEM 7 (LYTES,BUN,CREA,GLUC) on 11-06-2024 Anion gap [Moles/Vol] 12 mmol/L 7 - 17 mmol/L [facility] Chloride [Moles/Vol] 104 mmol/L 98 - 10 8 mmol/L [facility] CO2 [Moles/Vol] 25 mmol/L 21 - 31 mmol/L [facility] Creatinine [Mass/Vol] 0.91 mg/dL 0.50 - 1.20 mg/dL [facility] eGFR, CKD-EPI, Female 61 - PINF [facility] Glucose [Mass/Vol] 88 mg/dL 70 - 179 mg/dL [facility] Osmolality Calc [Osmolality] 291 [facility] Potassium [Moles/Vol] 5 mmol/L 3.5 - 5.0 mmol/L [facility] Sodium [Moles/Vol] 136 mmol/L 135 - 145 mmol/L [facility] Urea nitrogen [Mass/Vol] 25 mg/dL 7 - 25 mg/dL [facility] Urea nitrogen/Creatinine [Mass ratio] 27 mg/mg [facility] Anion gap [Moles/Vol] 12 mmol/L Normal 7-17 [facility] Comment on above: Performed By: #### X M #### [facility] (DEFAULT) [address] [place] [address] Chloride [Moles/Vol] 104 mmol/L Normal 98-108 [facility] Comment on above: Performed By: #### X M #### [facility] (DEFAULT) [address] [place] [address] CO2 [Moles/Vol] 25 mmol/L Normal 21-31 [facility] Comment on above: Performed By: #### X M #### [facility] (DEFAULT) [address] [place] [address] Creatinine [Mass/Vol] 0.91 mg/dL Normal 0.50-1.20 [facility] Comment on above: Performed By: #### X M #### U [facility] (DEFAULT) [address] [place] [address] GFR/1.73 sq M.predicted among non-blacks MDRD (S/P/Bld) [Vol rate/Area] 61 mL/min/{1.73_m2} Normal >=60 [facility] Comment on above: Result Comment: Repo rted eGFR is based on the CKD-EPI 2020 equation using creatinine, age, and sex. Performed By: #### X M #### Eliu [facility] (DEFAULT) [address] [place] [address] 25590 Glucose [Mass/Vol] 88 mg/dL Normal Nonfastin g : 70-179 mg/dL; Fastin-99 [facility] Comment on above: Performed By: #### X M #### [facility] (DEFAULT) [address] [place] [address] Osmolality [Osmolality] 291 mosm/kg Normal 278-305 [facility] Comment on above: Performed By: #### X M #### [facility] (DEFAULT) [address] [place] [address] Potassium [Moles/Vol] 5.0 mmol/L Normal 3.5-5.0 [facility] Comment on above: Performed By: #### X M #### U [facility] (DEFAULT) [address] [place] [address]98 Sodium [Moles/Vol] 136 mmol/L Normal 135-145 [facility] Comment on above: Performed By: #### X M #### [facility] (DEFAULT) [address] [place] [address] Urea nitrogen [Mass/Vol] 25 mg/dL Normal 7-25 [facility] Comment on above: Performed By: #### X M #### [facility] (DEFAULT) [address] [place] [address] Urea nitrogen/Creatinine [Mass ratio] 27 mg/mg Normal [facility] Comment on above: Performed By: #### X M #### [facility] (DEFAULT) [address] [place] [address] URINE CULTUREOrdered By: Jag Bailey on 11-06-2024 Bacteria identified Cx Nom (Unsp spec) Growth [facility] Bacteria identified Cx Nom (Unsp spec) ENTEROCOCCUS FAECALIS Abnormal [facility] Interpretation and review of laboratory results Abnormal [facility] CBC,PLATELETSon 11-05-2024 Erythrocyte distribution width (RBC) [Ratio] 12.5 % 10.8 - 14.9 % [facility] Hematocrit (Bld) [Volume fraction] 37.5 % 34.9 - 44.3 % [facility] Hemoglobin (Bld) [Mass/Vol] 11.8 g/dL 11.4 - 15.2 g/dL [facility] Interpretation and review of laboratory results Abnormal [facility] MCH (RBC) [Entitic mass] 30.4 pg 25.9 - 33.9 pg [facility] MCHC (RBC) [Mass/Vol] 31.5 g/dL 31.4 - 35.9 g/dL [facility] MCV (RBC) [Entitic vol] 96.6 fL 79.6 - 97.7 fL [facility] Platelet mean volume (Bld) [Entitic vol] 9.5 fL 8.5 - 12.2 fL [facility] Platelets (Bld) [#/Vol] 478 10*3/uL High 150 - 393 K/uL [facility] RBC (Bld) [#/Vol] 3.88 10*6/uL Low [facility] WBC (Bld) [#/Vol] 8.21 10*3/uL 3.99 - 11.19 K[facility]L [facility] CHEM 7 (LYTES,BUN,CREA,GLUC) on 11-05-2024 Anion gap [Moles/Vol] 14 mmol/L 7 - 17 mmol/L [facility] Chloride [Moles/Vol] 101 mmol/L 98 - 10 8 mmol/L [facility] CO2 [Moles/Vol] 27 mmol/L 21 - 31 mmol/L [facility] Creatinine [Mass/Vol] 0.8 mg/dL 0.50 - 1.20 mg/dL [facility] eGFR, CKD-EPI, Female 72 - PINF [facility] Glucose [Mass/Vol] 114 mg/dL 70 - 179 mg/dL [facility] Osmolality Calc [Osmolality] 295 [facility] Potassium [Moles/Vol] 4.3 mmol/L 3.5 - 5.0 mmol/L [facility] Sodium [Moles/Vol] 138 mmol/L 135 - 145 mmol/L [facility] Urea nitrogen [Mass/Vol] 25 mg/dL 7 - 25 mg/dL [facility] Urea nitrogen/Creatinine [Mass ratio] 31 mg/mg [facility] HIGH SENSITIVITY TROPONIN I - SINGLE ORDERon 11-05-2024 Interpretation and review of laboratory results Normal [facility] Troponin I.cardiac High sensitivity method [Mass/Vol] 9 ng/L NINF - 34 ng/L [facility] CBC,PLATELETSon 11-04-2024 Hematocrit (Bld) [Volume fraction] 37.5 % Normal 34.9-44.3 [facility] Comment on above: Performed By: #### U R #### [facility] (DEFAULT) [address] [address] Hemoglobin (Bld) [Mass/Vol] 11.8 g/dL Normal 11.4-15.2 [facility] Comment on above: Performed By: #### U R #### [facility] (DEFAULT) [address] [place] [address] MCV (RBC) [Entitic vol] 96.6 fL Normal 79.6-97.7 [facility] Comment on above: Performed By: #### U R #### [facility] (DEFAULT) [address] [place] [address] Mean Cell Hgb 30.4 pg Normal 25.9-33.9 [facility] Comment on above: Performed By: #### U R #### [facility] (DEFAULT) [address] [place] [address] Mean Cell Hgb Conc 31.5 g/dL Normal 31.4-35.9 [facility] Comment on above: Performed By: #### U R #### [facility] (DEFAULT) [address] [place] [address] Platelet mean volume (Bld) [Entitic vol] 9.5 fL Normal 8.5-12.2 [facility] Comment on above: Performed By: #### U R #### [facility] (DEFAULT) [address] [place] [address] Platelets (Bld) [#/Vol] 478 10*3/uL High 150-393 [facility] Comment on above: Performed By: #### U R #### [facility] (DEFAULT) [address] [place] [address] RBC (Bld) [#/Vol] 3.88 10*6/uL Low 3.91-5.04 [facility] Comment on above: Performed By: #### U R #### [facility] (DEFAULT) [address] [address] RBC Distribution 12.5 % Normal 10.8-14.9 [facility] Comment on above: Performed By: #### U R #### [facility] (DEFAULT) [address] [place] [address] WBC (Bld) [#/Vol] 8.21 10*3/uL Normal 3.99-11.19 [facility] Comment on above: Performed By: #### U R #### U [facility] (DEFAULT) [address] [address] CHEM 7 (LYTES,BUN,CREA,GLUC) on 11-04-2024 Anion gap [Moles/Vol] 14 mmol/L Normal 7-17 [facility] Comment on above: Performed By: #### X M #### [facility] (DEFAULT) [address] [place] [address] Chloride [Moles/Vol] 101 mmol/L Normal 98-108 [facility] Comment on above: Performed By: #### X M #### [facility] (DEFAULT) [address] [address] CO2 [Moles/Vol] 27 mmol/L Normal 21-31 [facility] Comment on above: Performed By: #### X M #### [facility] (DEFAULT) [address] [address] Creatinine [Mass/Vol] 0.80 mg/dL Normal 0.50-1.20 [facility] Comment on above: Performed By: #### X M #### [facility] (DEFAULT) [address] [address] GFR/1.73 sq M.predicted among non-blacks MDRD (S/P/Bld) [Vol rate/Area] 72 mL/min/{1.73_m2} Normal >=60 [facility] Comment on above: Result Comment: Repo rted eGFR is based on the CKD-EPI 2020 equation using creatinine, age, and sex. Performed By: #### X M #### U [facility] (DEFAULT) [address] [address] Glucose [Mass/Vol] 114 mg/dL Normal Nonfastin g : 70-179 mg/dL; Fastin-99 [facility] Comment on above: Performed By: #### X M #### U [facility] (DEFAULT) [address] [place] [address] Osmolality [Osmolality] 295 mosm/kg Normal 278-305 [facility] Comment on above: Performed By: #### X M #### [facility] (DEFAULT) [address] [place] [address] Potassium [Moles/Vol] 4.3 mmol/L Normal 3.5-5.0 [facility] Comment on above: Performed By: #### X M #### [facility] (DEFAULT) [address] [place] [address] Sodium [Moles/Vol] 138 mmol/L Normal 135-145 [facility] Comment on above: Performed By: #### X M #### [facility] (DEFAULT) [address] [place] [address] Urea nitrogen [Mass/Vol] 25 mg/dL Normal 7-25 [facility] Comment on above: Performed By: #### X M #### [facility] (DEFAULT) [address] [place] [address] Urea nitrogen/Creatinine [Mass ratio] 31 mg/mg Normal [facility] Comment on above: Performed By: #### X M #### [facility] (DEFAULT) [address] [place] [address] HIGH SENSITIVITY TROPONIN I - SINGLE ORDERon 11-04-2024 hs-Troponin I 9 ng/L Normal <34 [facility] Comment on above: Order Comment: For i ndwelling catheters, specimen collection is acceptable on catheter day 1 and 2 only. ? Performed By: #### U [id number] #### [facility] (DEFAULT) [address] [place] [address] CBC AND ELECTRONIC DIFFon Basophils (Bld) [#/Vol] 0.1 10*3/uL 0.00 - 0.15 K/uL [facility] Basophils/100 WBC (Bld) 1.1 % [facility] Differential cell count method Nom (Bld) Electronic Differential [facility] Eosinophils (Bld) [#/Vol] 0.59 10*3/uL High 0.00 - 0.42 K/uL [facility] Eosinophils/100 WBC (Bld) 6.2 % [facility] Erythrocyte distribution width (RBC) [Ratio] 12.5 % 10.8 - 14.9 % [facility] Hematocrit (Bld) [Volume fraction] 37.4 % 34.9 - 44.3 % [facility] Hemoglobin (Bld) [Mass/Vol] 11.8 g/dL 11.4 - 15.2 g/dL [facility] Immature granulocytes (Bld) [#/Vol] 0.08 10*3/uL NINF - 0.08 K/uL [facility] Immature granulocytes/100 WBC (Bld) 0.8 % [facility] Interpretation and review of laboratory results Abnormal [facility] Lymphocytes (Bld) [#/Vol] 1.13 10*3/uL Low 1.16 - 3.51 K/uL [facility] Lymphocytes/100 WBC (Bld) 11.9 % [facility] MCH (RBC) [Entitic mass] 30.5 pg 25.9 - 33.9 pg [facility] MCHC (RBC) [Mass/Vol] 31.6 g/dL 31.4 - 35.9 g/dL [facility] MCV (RBC) [Entitic vol] 96.6 fL 79.6 - 97.7 fL [facility] Monocytes (Bld) [#/Vol] 0.47 10*3/uL 0.22 - 0.87 K/uL [facility] Monocytes/100 WBC (Bld) 4.9 % [facility] Neutrophils (Bld) [#/Vol] 7.13 10*3/uL 1.64 - 7.28 K/uL [facility] Nucleated RBC/100 WBC (Bld) [Ratio] 0 % [facility] Platelet mean volume (Bld) [Entitic vol] 9.4 fL 8.5 - 12.2 fL [facility] Platelets (Bld) [#/Vol] 511 10*3/uL High 150 - 393 K/uL [facility] RBC (Bld) [#/Vol] 3.87 10*6/uL Low [facility] Segmented neutrophils/100 WBC (Bld) 75.1 % [facility] WBC (Bld) [#/Vol] 9.5 10*3/uL 3.99 - 11.19 K/uL [facility] Basophils (Bld) [#/Vol] 0.10 10*3/uL Normal 0.00-0.15 [facility] Comment on above: Performed By: #### T YPEC #### [facility] (DEFAULT) [address] [address] Basophils/100 WBC (Bld) 1.1 % Normal [facility] Comment on above: Performed By: #### T YPEC #### [facility] (DEFAULT) [address] [address] DIFF STATUS Electronic Differential Normal [facility] Comment on above: Performed By: #### T YPEC #### [facility] (DEFAULT) [address] [address] Eosinophils (Bld) [#/Vol] 0.59 10*3/uL High 0.00-0.42 [facility] Comment on above: Performed By: #### T YPEC #### [facility] (DEFAULT) [address] [address] Eosinophils/100 WBC (Bld) 6.2 % Normal [facility] Comment on above: Performed By: #### T YPEC #### [facility] (DEFAULT) [address] [address] Hematocrit (Bld) [Volume fraction] 37.4 % Normal 34.9-44.3 [facility] Comment on above: Performed By: #### T YPEC #### [facility] (DEFAULT) [address] [address] Hemoglobin (Bld) [Mass/Vol] 11.8 g/dL Normal 11.4-15.2 [facility] Comment on above: Performed By: #### T YPEC #### [facility] (DEFAULT) [address] [address] Immature Grans % 0.8 % Normal [facility] Comment on above: Performed By: #### T YPEC #### [facility] [facility] (DEFAULT) [address] [place] [address]4572 Immature Grans Absolute 0.08 K/uL Normal <=0.08 [facility] Comment on above: Performed By: #### T YPEC #### [facility] (DEFAULT) [address] [place] [address] 86034 Lymphocytes (Bld) [#/Vol] 1.13 10*3/uL Low 1.16-3.51 [facility] Comment on above: Performed By: #### T YPEC #### [facility] (DEFAULT) [address] [place] [address] 13049 Lymphocytes/100 WBC (Bld) 11.9 % Normal [facility] Comment on above: Performed By: #### T YPEC #### [facility] (DEFAULT) [address] [address] MCV (RBC) [Entitic vol] 96.6 fL Normal 79.6-97.7 [facility] Comment on above: Performed By: #### T YPEC #### [facility] (DEFAULT) [address] [place] [address] 89106 Mean Cell Hgb 30.5 pg Normal 25.9-33.9 [facility] Comment on above: Performed By: #### T YPEC #### [facility] (DEFAULT) [address] [address] Mean Cell Hgb Conc 31.6 g/dL Normal 31.4-35.9 [facility] Comment on above: Performed By: #### T YPEC #### [facility] (DEFAULT) [address] [place] [address] 35544 Monocytes (Bld) [#/Vol] 0.47 10*3/uL Normal 0.22-0.87 [facility] Comment on above: Performed By: #### T YPEC #### [facility] (DEFAULT) [address] [place] [address] 41786 Monocytes/100 WBC (Bld) 4.9 % Normal [facility] Comment on above: Performed By: #### T YPEC #### [facility] (DEFAULT) [address] [place] [address] 10988 Nucleated RBC 0.0 /100 WBC Normal <=0.2 [facility] Comment on above: Performed By: #### T YPEC #### [facility] (DEFAULT) [address] [place] [address] 70189 Platelet mean volume (Bld) [Entitic vol] 9.4 fL Normal 8.5-12.2 [facility] Comment on above: Performed By: #### T YPEC #### [facility] (DEFAULT) [address] [place] [address] 37184 Platelets (Bld) [#/Vol] 511 10*3/uL High 150-393 [facility] Comment on above: Performed By: #### T YPEC #### [facility] (DEFAULT) [address] [place] [address] 23489 RBC (Bld) [#/Vol] 3.87 10*6/uL Low 3.91-5.04 [facility] Comment on above: Performed By: #### T YPEC #### [facility] (DEFAULT) [address] [place] [address] 83812 RBC Distribution 12.5 % Normal 10.8-14.9 [facility] Comment on above: Performed By: #### T YPEC #### [facility] (DEFAULT) [address] [place] [address] 36356 Segs + Bands Auto 75.1 % Normal [facility] Comment on above: Performed By: #### T YPEC #### [facility] (DEFAULT) [address] [place] [address] 97579 Segs + Bands,Absolute Auto 7.13 K/uL Normal 1.64-7.28 [facility] Comment on above: Performed By: #### T YPEC #### [facility] (DEFAULT) [address] [place] [address] 72186 WBC (Bld) [#/Vol] 9.50 10*3/uL Normal 3.99-11.19 [facility] Comment on above: Performed By: #### T YPEC #### [facility] (DEFAULT) [address] [place] [address] 02826 CHEM 7 (LYTES,BUN,CREA,GLUC) on 11-03-2024 Anion gap [Moles/Vol] 12 mmol/L 7 - 17 mmol/L [facility] Chloride [Moles/Vol] 99 mmol/L 98 - 10 8 mmol/L [facility] CO2 [Moles/Vol] 31 mmol/L 21 - 31 mmol/L [facility] Creatinine [Mass/Vol] 0.75 mg/dL 0.50 - 1.20 mg/dL [facility] eGFR, CKD-EPI, Female 77 - PINF [facility] Glucose [Mass/Vol] 115 mg/dL 70 - 179 mg/dL [facility] Interpretation and review of laboratory results Abnormal [facility] Osmolality Calc [Osmolality] 296 [facility] Potassium [Moles/Vol] 4.6 mmol/L 3.5 - 5.0 mmol/L [facility] Sodium [Moles/Vol] 137 mmol/L 135 - 145 mmol/L [facility] Urea nitrogen [Mass/Vol] 31 mg/dL High 7 - 25 mg/dL [facility] Urea nitrogen/Creatinine [Mass ratio] 41 mg/mg [facility] Anion gap [Moles/Vol] 12 mmol/L Normal 7-17 [facility] Comment on above: Performed By: #### C HM7 #### [facility] (DEFAULT) [address] [place] [address] 25962 Chloride [Moles/Vol] 99 mmol/L Normal 98-108 [facility] Comment on above: Performed By: #### C HM7 #### [facility] (DEFAULT) [address] [place] [address] 12980 CO2 [Moles/Vol] 31 mmol/L Normal 21-31 [facility] Comment on above: Performed By: #### C HM7 #### [facility] (DEFAULT) [address] [place] [address] 97053 Creatinine [Mass/Vol] 0.75 mg/dL Normal 0.50-1.20 [facility] Comment on above: Performed By: #### C HM7 #### [facility] (DEFAULT) [address] [place] [address] 89115 GFR/1.73 sq M.predicted among non-blacks MDRD (S/P/Bld) [Vol rate/Area] 77 mL/min/{1.73_m2} Normal >=60 [facility] Comment on above: Result Comment: Repo rted eGFR is based on the CKD-EPI 2020 equation using creatinine, age, and sex. Performed By: #### C HM7 #### [facility] (DEFAULT) [address] [place] [address] 81486 Glucose [Mass/Vol] 115 mg/dL Normal Nonfastin g : 70-179 mg/dL; Fastin-99 [facility] Comment on above: Performed By: #### C HM7 #### [facility] (DEFAULT) [address] [place] [address] 92603 Osmolality [Osmolality] 296 mosm/kg Normal 278-305 [facility] Comment on above: Performed By: #### C HM7 #### [facility] (DEFAULT) [address] [place] [address] 99581 Potassium [Moles/Vol] 4.6 mmol/L Normal 3.5-5.0 [facility] Comment on above: Performed By: #### C HM7 #### [facility] (DEFAULT) [address] [place] [address] Sodium [Moles/Vol] 137 mmol/L Normal 135-145 [facility] Comment on above: Performed By: #### C HM7 #### [facility] (DEFAULT) [address] [place] [address] Urea nitrogen [Mass/Vol] 31 mg/dL High 7-25 [facility] Comment on above: Performed By: #### C HM7 #### [facility] (DEFAULT) [address] [place] [address] Urea nitrogen/Creatinine [Mass ratio] 41 mg/mg Normal [facility] Comment on above: Performed By: #### C HM7 #### [facility] (DEFAULT) [address] [place] [address] EXTRA MICROon 11-02-2024 [facility] URINALYSIS REFLEX TO CULTURE PERFORMABLEOrdered By: Na Engle on 11-02-2024 Appearance (U) Cloudy Abnormal Clear [facility] Bacteria LM Ql (Urine sed) PRESENT Abnormal ABSENT [facility] Color (U) Yellow Yellow [facility] Epithelial cells.squamous LM Ql (Urine sed) 0-2/hpf 0-2/hpf, 3-5/hpf = 1+ [facility] Glucose Test strip (U) [Mass/Vol] Negative Negative [facility] Interpretation and review of laboratory results Abnormal [facility] Ketones (U) [Mass/Vol] Negative Negative [facility] Leukocyte esterase Test strip Ql (U) Moderate Abnormal Negative [facility] Nitrite Ql (U) Negative Negative [facility] pH (U) 6.5 [pH] 5.0 - 7.[address] [facility] Protein (U) [Mass/Vol] Negative Negative [facility] RBC (U) [#/Vol] Negative Negative [facility] RBC LM.HPF (Urine sed) [#/Area] 3-5 Abnormal [facility] Specific gravity (U) [Rel density] 1.016 1.001 - 1.035 [facility] Urobilinogen (U) [Mass/Vol] 0.2 E.U./dL 0.2 E.U/dL, 1.0 E.U/dL [facility] WBC LM.HPF (Urine sed) [#/Area] /[HPF] Abnormal [facility] URINALYSIS REFLEX TO CULTURE PERFORMABLEon 11-02-2024 Appearance (U) Cloudy Abnormal Clear [facility] Comment on above: Order Comment: For i ndwelling catheters, specimen collection is acceptable on catheter day 1 and 2 only. ? Performed By: #### A 1CB, [id number] #### [facility] (DEFAULT) [address] [address] Bacteria PRESENT Abnormal ABSENT [facility] Comment on above: Order Comment: For i ndwelling catheters, specimen collection is acceptable on catheter day 1 and 2 only. ? Performed By: #### A 1CB, [id number] #### [facility] (DEFAULT) [address] [address] Blood Urine Negative Normal Negative [facility] Comment on above: Order Comment: For i ndwelling catheters, specimen collection is acceptable on catheter day 1 and 2 only. ? Performed By: #### A 1CB, [id number] #### [facility] (DEFAULT) [address] [place] [address] Color (U) Yellow Normal Yellow [facility] Comment on above: Order Comment: For i ndwelling catheters, specimen collection is acceptable on catheter day 1 and 2 only. ? Performed By: #### A 1CB, [id number] #### [facility] (DEFAULT) [address] [place] [address]279 Glucose Ql (U) Negative Normal Negative [facility] Comment on above: Order Comment: For i ndwelling catheters, specimen collection is acceptable on catheter day 1 and 2 only. ? Performed By: #### A 1CB, [id number] #### [facility] (DEFAULT) [address] [place] [address] 70742 Ketones Ql (U) Negative Normal Negative [facility] Comment on above: Order Comment: For i ndwelling catheters, specimen collection is acceptable on catheter day 1 and 2 only. ? Performed By: #### A 1CB, [id number] #### [facility] (DEFAULT) [address] [place] [address] 18616 Leukocyte esterase Test strip Ql (U) Moderate Abnormal Negative [facility] Comment on above: Order Comment: For i ndwelling catheters, specimen collection is acceptable on catheter day 1 and 2 only. ? Performed By: #### A 1CB, [id number] #### [facility] (DEFAULT) [address] [place] [address] Nitrites Urine Negative Normal Negative [facility] Comment on above: Order Comment: For i ndwelling catheters, specimen collection is acceptable on catheter day 1 and 2 only. ? Performed By: #### A 1CB, [id number] #### [facility] (DEFAULT) [address] [place] [address] pH (U) 6.5 [pH] Normal 5.0-7.0 [facility] Comment on above: Order Comment: For i ndwelling catheters, specimen collection is acceptable on catheter day 1 and 2 only. ? Performed By: #### A 1CB, [id number] #### [facility] (DEFAULT) [address] [place] [address] 59963 Protein Urine Negative Normal Negative [facility] Comment on above: Order Comment: For i ndwelling catheters, specimen collection is acceptable on catheter day 1 and 2 only. ? Performed By: #### A 1CB, [id number] #### [facility] (DEFAULT) [address] [place] [address] 86508 RBC Urine 3-5 Abnormal 0-2 [facility] Comment on above: Order Comment: For i ndwelling catheters, specimen collection is acceptable on catheter day 1 and 2 only. ? Performed By: #### A 1CB, [id number] #### [facility] (DEFAULT) [address] [place] [address] 42817 Specific [place] Urine 1.016 Normal 1.001-1.03 5 [facility] Comment on above: Order Comment: For i ndwelling catheters, specimen collection is acceptable on catheter day 1 and 2 only. ? Performed By: #### A 1CB, [id number] #### [facility] (DEFAULT) [address] [place] [address] 23197 Squamous/Epithelial Cells, Urine 0-2/hpf Normal 0-2/hpf, 3-5/hpf = 1+ [facility] Comment on above: Order Comment: For i ndwelling catheters, specimen collection is acceptable on catheter day 1 and 2 only. ? Performed By: #### A 1CB, [id number] #### [facility] (DEFAULT) [address] [place] [address] 39518 Urobilinogen Urine 0.2 E.U./dL Normal 0.2 E.U/dL, 1.0 E.U/dL [facility] Comment on above: Order Comment: For i ndwelling catheters, specimen collection is acceptable on catheter day 1 and 2 only. ? Performed By: #### A 1CB, [id number] #### [facility] (DEFAULT) [address] [place] [address] 56412 WBC LM.HPF (Urine sed) [#/Area] /[HPF] Abnormal 0 - 5 [facility] Comment on above: Order Comment: For i ndwelling catheters, specimen collection is acceptable on catheter day 1 and 2 only. ? Performed By: #### A 1CB, [id number] #### [facility] (DEFAULT) [address] [place] [address] 27682 URINE CULTUREon 11-02-2024 Bacteria identified Cx Nom (U) Normal [facility] Comment on above: Order Comment: For i [...] 3 days. Performed By: #### A 1CB, [id number] #### [facility] (DEFAULT) [address] [place] [address] XR ABDOMEN 1 VIEW PORTABLEon 11-02-2024 XR [...] IMPRESSION: Mild findings suggesting an ileus. Normal [facility] XR Abdomen Single viewon RADIOLOGY RADIOLOGY [facility] Radiology Study observation (narrative) [facility] XR Abdomen Single viewOrdere d By: Ana Fuentes on 11-02-2024 [facility] Work Phone: GLUCOSE POCon 11-01-2024 Glucose [Mass/Vol] 110 mg/dL 70 - 179 mg/dL [facility] POC Sample Type [facility] Glucose [Mass/Vol] 122 mg/dL 70 - 179 mg/dL [facility] POC Sample Type CAPBL [facility] XR ABDOMEN 1 VIEW PORTABLEon 11-01-2024 XR [...] a post pyloric location is recommended Normal [facility] XR ABDOMEN 1 VIEW PORTABLE EXAM: XR [...] tip likely in the proximal duodenum. Normal [facility] XR Abdomen Single viewon RADIOLOGY RADIOLOGY [facility] Radiology Study observation (narrative) [facility] RADIOLOGY RADIOLOGY [facility] Radiology Study observation (narrative) [facility] XR Abdomen Single viewOrdere d By: Angel Alicea on 11-01-2024 [facility] Work Phone: CBC AND ELECTRONIC DIFFon Basophils (Bld) [#/Vol] 0.12 10*3/uL 0.00 - 0.15 K/uL [facility] Basophils/100 WBC (Bld) 1.7 % [facility] Differential cell count method Nom (Bld) Electronic Differential [facility] Eosinophils (Bld) [#/Vol] 0.56 10*3/uL High 0.00 - 0.42 K/uL [facility] Eosinophils/100 WBC (Bld) 7.8 % [facility] Erythrocyte distribution width (RBC) [Ratio] 12.5 % 10.8 - 14.9 % [facility] Hematocrit (Bld) [Volume fraction] 36.7 % 34.9 - 44.3 % [facility] Hemoglobin (Bld) [Mass/Vol] 11.7 g/dL 11.4 - 15.2 g/dL [facility] Immature granulocytes (Bld) [#/Vol] 0.06 10*3/uL NINF - 0.08 K/uL [facility] Immature granulocytes/100 WBC (Bld) 0.8 % [facility] Interpretation and review of laboratory results Abnormal [facility] Lymphocytes (Bld) [#/Vol] 1.1 10*3/uL Low 1.16 - 3.51 K/uL [facility] Lymphocytes/100 WBC (Bld) 15.3 % [facility] MCH (RBC) [Entitic mass] 30.9 pg 25.9 - 33.9 pg [facility] MCHC (RBC) [Mass/Vol] 31.9 g/dL 31.4 - 35.9 g/dL [facility] MCV (RBC) [Entitic vol] 96.8 fL 79.6 - 97.7 fL [facility] Monocytes (Bld) [#/Vol] 0.66 10*3/uL 0.22 - 0.87 K/uL [facility] Monocytes/100 WBC (Bld) 9.2 % [facility] Neutrophils (Bld) [#/Vol] 4.7 10*3/uL 1.64 - 7.28 K/uL [facility] Nucleated RBC/100 WBC (Bld) [Ratio] 0 % NINF [facility] Platelet mean volume (Bld) [Entitic vol] 9.2 fL 8.5 - 12.2 fL [facility] Platelets (Bld) [#/Vol] 458 10*3/uL High 150 - 393 K/uL [facility] RBC (Bld) [#/Vol] 3.79 10*6/uL Low [facility] Segmented neutrophils/100 WBC (Bld) 65.2 % [facility] WBC (Bld) [#/Vol] 7.2 10*3/uL 3.99 - 11.19 K/uL [facility] Basophils (Bld) [#/Vol] 0.12 10*3/uL Normal 0.00-0.15 [facility] Comment on above: Performed By: #### T YPEC #### [facility] (DEFAULT) [address] [address] Basophils/100 WBC (Bld) 1.7 % Normal [facility] Comment on above: Performed By: #### T YPEC #### [facility] (DEFAULT) [address] [address] DIFF STATUS Electronic Differential Normal [facility] Comment on above: Performed By: #### T YPEC #### [facility] (DEFAULT) [address] [place] [address]2377 Eosinophils (Bld) [#/Vol] 0.56 10*3/uL High 0.00-0.42 [facility] Comment on above: Performed By: #### T YPEC #### [facility] (DEFAULT) [address] [place] [address]130 Eosinophils/100 WBC (Bld) 7.8 % Normal [facility] Comment on above: Performed By: #### T YPEC #### [facility] (DEFAULT) [address] [address] Hematocrit (Bld) [Volume fraction] 36.7 % Normal 34.9-44.3 [facility] Comment on above: Performed By: #### T YPEC #### [facility] (DEFAULT) [address] [address] Hemoglobin (Bld) [Mass/Vol] 11.7 g/dL Normal 11.4-15.2 [facility] Comment on above: Performed By: #### T YPEC #### [facility] (DEFAULT) [address] [place] [address] Immature Grans % 0.8 % Normal [facility] Comment on above: Performed By: #### T YPEC #### [facility] (DEFAULT) [address] [address] Immature Grans Absolute 0.06 K/uL Normal <=0.08 [facility] Comment on above: Performed By: #### T YPEC #### [facility] (DEFAULT) [address] [place] [address] Lymphocytes (Bld) [#/Vol] 1.10 10*3/uL Low 1.16-3.51 [facility] Comment on above: Performed By: #### T YPEC #### [facility] (DEFAULT) [address] [address] Lymphocytes/100 WBC (Bld) 15.3 % Normal [facility] Comment on above: Performed By: #### T YPEC #### [facility] (DEFAULT) [address] [address] MCV (RBC) [Entitic vol] 96.8 fL Normal 79.6-97.7 [facility] Comment on above: Performed By: #### T YPEC #### [facility] (DEFAULT) [address] [address] Mean Cell Hgb 30.9 pg Normal 25.9-33.9 [facility] Comment on above: Performed By: #### T YPEC #### [facility] (DEFAULT) [address] [address] Mean Cell Hgb Conc 31.9 g/dL Normal 31.4-35.9 [facility] Comment on above: Performed By: #### T YPEC #### [facility] (DEFAULT) [address] [address] Monocytes (Bld) [#/Vol] 0.66 10*3/uL Normal 0.22-0.87 [facility] Comment on above: Performed By: #### T YPEC #### [facility] (DEFAULT) [address] [address] Monocytes/100 WBC (Bld) 9.2 % Normal [facility] Comment on above: Performed By: #### T YPEC #### [facility] (DEFAULT) [address] [address] Nucleated RBC 0.0 /100 WBC Normal <=0.2 [facility] Comment on above: Performed By: #### T YPEC #### [facility] (DEFAULT) [address] [address] Platelet mean volume (Bld) [Entitic vol] 9.2 fL Normal 8.5-12.2 [facility] Comment on above: Performed By: #### T YPEC #### [facility] (DEFAULT) [address] [address] Platelets (Bld) [#/Vol] 458 10*3/uL High 150-393 [facility] Comment on above: Performed By: #### T YPEC #### [facility] (DEFAULT) [address] [address] RBC (Bld) [#/Vol] 3.79 10*6/uL Low 3.91-5.04 [facility] Comment on above: Performed By: #### T YPEC #### [facility] (DEFAULT) [address] [place] [address] 21679 RBC Distribution 12.5 % Normal 10.8-14.9 [facility] Comment on above: Performed By: #### T YPEC #### [facility] (DEFAULT) [address] [place] [address] Segs + Bands Auto 65.2 % Normal [facility] Comment on above: Performed By: #### T YPEC #### [facility] (DEFAULT) [address] [place] [address] 58466 Segs + Bands,Absolute Auto 4.70 K/uL Normal 1.64-7.28 [facility] Comment on above: Performed By: #### T YPEC #### [facility] (DEFAULT) [address] [place] [address]49 WBC (Bld) [#/Vol] 7.20 10*3/uL Normal 3.99-11.19 [facility] Comment on above: Performed By: #### T YPEC #### [facility] (DEFAULT) [address] [place] [address] CHEM 7 (LYTES,BUN,CREA,GLUC) on 10-31-2024 Anion gap [Moles/Vol] 12 mmol/L 7 - 17 mmol/L [facility] Chloride [Moles/Vol] 103 mmol/L 98 - 10 8 mmol/L [facility] CO2 [Moles/Vol] 28 mmol/L 21 - 31 mmol/L [facility] Creatinine [Mass/Vol] 0.75 mg/dL 0.50 - 1.20 mg/dL [facility] eGFR, CKD-EPI, Female 77 - PINF [facility] Glucose [Mass/Vol] 122 mg/dL 70 - 179 mg/dL [facility] Interpretation and review of laboratory results Abnormal [facility] Osmolality Calc [Osmolality] 299 [facility] Potassium [Moles/Vol] 4.6 mmol/L 3.5 - 5.0 mmol/L [facility] Sodium [Moles/Vol] 138 mmol/L 135 - 145 mmol/L [facility] Urea nitrogen [Mass/Vol] 33 mg/dL High 7 - 25 mg/dL [facility] Urea nitrogen/Creatinine [Mass ratio] 44 mg/mg [facility] Anion gap [Moles/Vol] 12 mmol/L Normal 7-17 [facility] Comment on above: Performed By: #### U [id number] #### [facility] (DEFAULT) [address] [place] [address] 26964 Chloride [Moles/Vol] 103 mmol/L Normal 98-108 [facility] [facility] Comment on above: Performed By: #### U [id number] #### [facility] (DEFAULT) [address] [place] [address]36[address] CO2 [Moles/Vol] 28 mmol/L Normal 21-31 [facility] Comment on above: Performed By: #### U [id number] #### [facility] (DEFAULT) [address] [place] [address] 18416 Creatinine [Mass/Vol] 0.75 mg/dL Normal 0.50-1.20 [facility] Comment on above: Performed By: #### U [id number] #### [facility] (DEFAULT) [address] [place] [address] 63733 GFR/1.73 sq M.predicted among non-blacks MDRD (S/P/Bld) [Vol rate/Area] 77 mL/min/{1.73_m2} Normal >=60 [facility] Comment on above: Result Comment: Repo rted eGFR is based on the CKD-EPI 2020 equation using creatinine, age, and sex. Performed By: #### U [id number] #### [facility] (DEFAULT) [address] [place] [address] 05218 Glucose [Mass/Vol] 122 mg/dL Normal Nonfastin g : 70-179 mg/dL; Fastin-99 [facility] Comment on above: Performed By: #### U [id number] #### U [facility] (DEFAULT) [address] [place] [address] 22552 Osmolality [Osmolality] 299 mosm/kg Normal 278-305 [facility] Comment on above: Performed By: #### U [id number] #### U [facility] (DEFAULT) [address] [place] [address] 21906 Potassium [Moles/Vol] 4.6 mmol/L Normal 3.5-5.0 [facility] Comment on above: Performed By: #### U [id number] #### U [facility] (DEFAULT) [address] [place] [address] 70722 Sodium [Moles/Vol] 138 mmol/L Normal 135-145 [facility] Comment on above: Performed By: #### U [id number] #### U [facility] (DEFAULT) [address] [place] [address] 25588 Urea nitrogen [Mass/Vol] 33 mg/dL High 7-25 [facility] Comment on above: Performed By: #### U [id number] #### [facility] (DEFAULT) [address] [place] [address] 13851 Urea nitrogen/Creatinine [Mass ratio] 44 mg/mg Normal [facility] Comment on above: Performed By: #### U [id number] #### U [facility] (DEFAULT) [address] [place] [address] 04805 GLUCOSE POCon 10-31-2024 Glucose [Mass/Vol] 136 mg/dL 70 - 179 mg/dL [facility] POC Sample Type CAPBL [facility] Glucose [Mass/Vol] 146 mg/dL 70 - 179 mg/dL [facility] Glucose [Mass/Vol] 168 mg/dL 70 - 179 mg/dL [facility] Glucose [Mass/Vol] 138 mg/dL 70 - 179 mg/dL [facility] Glucose [Mass/Vol] 136 mg/dL 70 - 179 mg/dL [facility] Glucose [Mass/Vol] 108 mg/dL 70 - 179 mg/dL [facility] No Panel Informationon 10-31 POC Sample Type CAPBL [facility] POC Sample [facility] CAPBL [facility] GLUCOSE POCon 10-30-2024 Glucose [Mass/Vol] 129 mg/dL 70 - 179 mg/dL [facility] Glucose [Mass/Vol] 137 mg/dL 70 - 179 mg/dL [facility] Glucose [Mass/Vol] 135 mg/dL 70 - 179 mg/dL [facility] Glucose [Mass/Vol] 144 mg/dL 70 - 179 mg/dL [facility] POC [facility] No Panel Informationon 10-30 POC Sample Type [facility] GLUCOSE POCon 10-29-2024 Glucose [Mass/Vol] 136 mg/dL 70 - 179 mg/dL [facility] POC Sample Type [facility] Glucose [Mass/Vol] 133 mg/dL 70 - 179 mg/dL [facility] POC Sample Type [facility] Glucose [Mass/Vol] 108 mg/dL 70 - 179 mg/dL [facility] Glucose [Mass/Vol] 148 mg/dL 70 - 179 mg/dL [facility] Glucose [Mass/Vol] 147 mg/dL 70 - 179 mg/dL [facility] Glucose [Mass/Vol] 141 mg/dL 70 - 179 mg/dL [facility] Glucose [Mass/Vol] 123 mg/dL 70 - 179 mg/dL [facility] Panel Informationon 10-29 POC Sample Type CAPBL [facility] XR ABDOMEN 1 VIEW PORTABLEon 10-29-2024 XR [...] the distal stomach near the pylorus. Normal [facility] XR Abdomen Single viewon RADIOLOGY RADIOLOGY [facility] Radiology Study observation (narrative) [facility] XR Abdomen Single viewOrdere d By: Julianna Tapia on 10-29-2024 [facility] Work Phone: CBC AND ELECTRONIC DIFFon Basophils (Bld) [#/Vol] 0.1 10*3/uL 0.00 - 0.15 K/uL [facility] Basophils/100 WBC (Bld) 1.3 % [facility] Differential cell count method Nom (Bld) Electronic Differential [facility] Eosinophils (Bld) [#/Vol] 0.28 10*3/uL 0.00 - 0.42 K/uL [facility] Eosinophils/100 WBC (Bld) 3.8 % [facility] Erythrocyte distribution width (RBC) [Ratio] 12.5 % 10.8 - 14.9 % [facility] Hematocrit (Bld) [Volume fraction] 40.6 % 34.9 - 44.3 % [facility] Hemoglobin (Bld) [Mass/Vol] 12.8 g/dL 11.4 - 15.2 g/dL [facility] Immature granulocytes (Bld) [#/Vol] 0.09 10*3/uL High NINF - 0.08 K/uL [facility] Immature granulocytes/100 WBC (Bld) 1.2 % [facility] Interpretation and review of laboratory results Abnormal [facility] Lymphocytes (Bld) [#/Vol] 1.07 10*3/uL Low 1.16 - 3.51 K/uL [facility] Lymphocytes/100 WBC (Bld) 14.4 % [facility] MCH (RBC) [Entitic mass] 30.5 pg 25.9 - 33.9 pg [facility] MCHC (RBC) [Mass/Vol] 31.5 g/dL 31.4 - 35.9 g/dL [facility] MCV (RBC) [Entitic vol] 96.9 fL 79.6 - 97.7 fL [facility] Monocytes (Bld) [#/Vol] 0.57 10*3/uL 0.22 - 0.87 K/uL [facility] Monocytes/100 WBC (Bld) 7.7 % [facility] Neutrophils (Bld) [#/Vol] 5.3 10*3/uL 1.64 - 7.28 K/uL [facility] Nucleated RBC/100 WBC (Bld) [Ratio] 0 % NINF [facility] Platelet mean volume (Bld) [Entitic vol] 10.7 fL 8.5 - 12.2 fL [facility] Platelets (Bld) [#/Vol] 304 10*3/uL 150 - 393 K/uL [facility] RBC (Bld) [#/Vol] 4.19 10*6/uL [facility] Segmented neutrophils/100 WBC (Bld) 71.6 % [facility] WBC (Bld) [#/Vol] 7.41 10*3/uL 3.99 - 11.19 K/uL [facility] Basophils (Bld) [#/Vol] 0.10 10*3/uL Normal 0.00-0.15 [facility] Comment on above: Performed By: #### X M #### [facility] (DEFAULT) [address] [place] [address] 60626 Basophils/100 WBC (Bld) 1.3 % Normal [facility] Comment on above: Performed By: #### X M #### [facility] (DEFAULT) [address] [address] DIFF STATUS Electronic Differential Normal [facility] Comment on above: Performed By: #### X M #### [facility] (DEFAULT) [address] [address] Eosinophils (Bld) [#/Vol] 0.28 10*3/uL Normal 0.00-0.42 [facility] Comment on above: Performed By: #### X M #### [facility] (DEFAULT) [address] [address] Eosinophils/100 WBC (Bld) 3.8 % Normal [facility] Comment on above: Performed By: #### X M #### [facility] (DEFAULT) [address] [address] Hematocrit (Bld) [Volume fraction] 40.6 % Normal 34.9-44.3 [facility] Comment on above: Performed By: #### X M #### [facility] (DEFAULT) [address] [address] Hemoglobin (Bld) [Mass/Vol] 12.8 g/dL Normal 11.4-15.2 [facility] Comment on above: Performed By: #### X M #### [facility] (DEFAULT) [address] [address] Immature Grans % 1.2 % Normal [facility] Comment on above: Performed By: #### X M #### [facility] (DEFAULT) [address] [address] Immature Grans Absolute 0.09 K/uL High <=0.08 [facility] Comment on above: Performed By: #### X M #### [facility] (DEFAULT) [address] [address] Lymphocytes (Bld) [#/Vol] 1.07 10*3/uL Low 1.16-3.51 [facility] Comment on above: Performed By: #### X M #### [facility] (DEFAULT) [address] [place] [address] Lymphocytes/100 WBC (Bld) 14.4 % Normal [facility] Comment on above: Performed By: #### X M #### [facility] (DEFAULT) [address] [address] MCV (RBC) [Entitic vol] 96.9 fL Normal 79.6-97.7 [facility] Comment on above: Performed By: #### X M #### Eliu [facility] (DEFAULT) [address] [address] Mean Cell Hgb 30.5 pg Normal 25.9-33.9 [facility] Comment on above: Performed By: #### X M #### [facility] (DEFAULT) [address] [address] Mean Cell Hgb Conc 31.5 g/dL Normal 31.4-35.9 [facility] Comment on above: Performed By: #### X M #### Eliu [facility] (DEFAULT) [address] [address] Monocytes (Bld) [#/Vol] 0.57 10*3/uL Normal 0.22-0.87 [facility] Comment on above: Performed By: #### X M #### [facility] (DEFAULT) [address] [place] [address] 82272 Monocytes/100 WBC (Bld) 7.7 % Normal [facility] Comment on above: Performed By: #### X M #### U [facility] (DEFAULT) [address] [place] [address] 01699 Nucleated RBC 0.0 /100 WBC Normal <=0.2 [facility] Comment on above: Performed By: #### X M #### U [facility] (DEFAULT) [address] [place] [address] 28832 Platelet mean volume (Bld) [Entitic vol] 10.7 fL Normal 8.5-12.2 [facility] Comment on above: Result Comment: This is an appended report. These results have been appended to a previously preliminary verified report. Performed By: #### X M #### [facility] (DEFAULT) [address] [place] [address] 21358 Platelets (Bld) [#/Vol] 304 10*3/uL Normal 150-393 [facility] Comment on above: Result Comment: Plat elet clumps noted on smear. Reported instrument value is acceptable This is an appended report. These results have been appended to a previously preliminary verified report. Performed By: #### X M #### [facility] (DEFAULT) [address] [place] [address] 04840 RBC (Bld) [#/Vol] 4.19 10*6/uL Normal 3.91-5.04 [facility] Comment on above: Performed By: #### X M #### [facility] (DEFAULT) [address] [address] RBC Distribution 12.5 % Normal 10.8-14.9 [facility] Comment on above: Performed By: #### X M #### [facility] (DEFAULT) [address] [place] [address] 24369 Segs + Bands Auto 71.6 % Normal [facility] Comment on above: Performed By: #### X M #### [facility] (DEFAULT) [address] [place] [address] Segs + Bands,Absolute Auto 5.30 K/uL Normal 1.64-7.28 [facility] Comment on above: Performed By: #### X M #### [facility] (DEFAULT) [address] [place] [address] WBC (Bld) [#/Vol] 7.41 10*3/uL Normal 3.99-11.19 [facility] Comment on above: Performed By: #### X M #### [facility] (DEFAULT) [address] [place] [address] CHEM 7 (LYTES,BUN,CREA,GLUC) on 10-28-2024 Anion gap [Moles/Vol] 14 mmol/L 7 - 17 mmol/L [facility] Chloride [Moles/Vol] 100 mmol/L 98 - 10 8 mmol/L [facility] CO2 [Moles/Vol] 27 mmol/L 21 - 31 mmol/L [facility] Creatinine [Mass/Vol] 0.81 mg/dL 0.50 - 1.20 mg/dL [facility] eGFR, CKD-EPI, Female 71 - PINF [facility] Glucose [Mass/Vol] 124 mg/dL 70 - 179 mg/dL [facility] Osmolality Calc [Osmolality] 292 [facility] Potassium [Moles/Vol] 4.6 mmol/L 3.5 - 5.0 mmol/L [facility] Sodium [Moles/Vol] 136 mmol/L 135 - 145 mmol/L [facility] Urea nitrogen [Mass/Vol] 25 mg/dL 7 - 25 mg/dL [facility] Urea nitrogen/Creatinine [Mass ratio] 31 mg/mg [facility] Anion gap [Moles/Vol] 14 mmol/L Normal 7-17 [facility] Comment on above: Performed By: #### C HM7 #### [facility] (DEFAULT) [address] [place] [address]129 Chloride [Moles/Vol] 100 mmol/L Normal 98-108 [facility] Comment on above: Performed By: #### Taylor HM7 #### Eliu [facility] (DEFAULT) [address] [place] [address] 23778 CO2 [Moles/Vol] 27 mmol/L Normal 21-31 [facility] Comment on above: Performed By: #### Taylor HM7 #### Eliu [facility] (DEFAULT) [address] [place] [address] 86799 Creatinine [Mass/Vol] 0.81 mg/dL Normal 0.50-1.20 [facility] Comment on above: Performed By: #### Taylor HM7 #### Eliu [facility] (DEFAULT) [address] [place] [address] 77689 GFR/1.73 sq M.predicted among non-blacks MDRD (S/P/Bld) [Vol rate/Area] 71 mL/min/{1.73_m2} Normal >=60 [facility] Comment on above: Result Comment: Repo rted eGFR is based on the CKD-EPI 2020 equation using creatinine, age, and sex. Performed By: #### Taylor HM7 #### [facility] (DEFAULT) [address] [place] [address]682 Glucose [Mass/Vol] 124 mg/dL Normal Nonfastin g : 70-179 mg/dL; Fastin-99 [facility] Comment on above: Performed By: #### Taylor HM7 #### Eliu [facility] (DEFAULT) [address] [place] [address]59 Osmolality [Osmolality] 292 mosm/kg Normal 278-305 [facility] Comment on above: Performed By: #### Taylor HM7 #### Eliu [facility] (DEFAULT) [address] [address] Potassium [Moles/Vol] 4.6 mmol/L Normal 3.5-5.0 [facility] Comment on above: Performed By: #### Taylor HM7 #### U [facility] (DEFAULT) [address] [place] [address] Sodium [Moles/Vol] 136 mmol/L Normal 135-145 [facility] Comment on above: Performed By: #### C HM7 #### [facility] (DEFAULT) [address] [place] [address] Urea nitrogen [Mass/Vol] 25 mg/dL Normal 7-25 [facility] Comment on above: Performed By: #### C HM7 #### [facility] (DEFAULT) [address] [place] [address] Urea nitrogen/Creatinine [Mass ratio] 31 mg/mg Normal [facility] Comment on above: Performed By: #### C HM7 #### [facility] (DEFAULT) [address] [place] [address] URINE CULTUREOrdered By: Raad Nieto on 10-28-2024 Bacteria identified Cx Nom (Unsp spec) Growth [facility] Bacteria identified Cx Nom (Unsp spec) >10,000 CFU/mL Mixed microbes [facility] Bacteria identified Cx Nom (Unsp spec) Escherichia/Citrobacter like Abnormal [facility] Bacteria identified Cx Nom (Unsp spec) ENTEROCOCCUS FAECALIS Abnormal [facility] Bacteria identified Cx Nom (Unsp spec) Mixed skin davonte [facility] Interpretation and review of laboratory results Abnormal [facility] ECGOrdered By: Trinity de la o on 10-27-2024 [facility] Work Phone: GLUCOSE POCon 10-27-2024 Glucose [Mass/Vol] 102 mg/dL 70 - 179 mg/dL [facility] Glucose [Mass/Vol] 122 mg/dL 70 - 179 mg/dL [facility] Glucose [Mass/Vol] 115 mg/dL 70 - 179 mg/dL [facility] Glucose [Mass/Vol] 111 mg/dL 70 - 179 mg/dL [facility] Glucose [Mass/Vol] 126 mg/dL 70 - 179 mg/dL [facility] POC Sample Type CAPBL [facility] No Panel Informationon 10-27 POC Sample Type [facility] POC Sample Type CAPBL [facility] XR ABDOMEN 1 VIEW PORTABLEon 10-27-2024 XR [...] into a postpyloric location is recommended Normal [facility] XR Abdomen Single viewon RADIOLOGY RADIOLOGY [facility] Radiology Study observation (narrative) [facility] XR Abdomen Single viewOrdere d By: Jason Garcia on 10-27-2024 [facility] Work Phone: EXTRA MICROon 10-26-2024 [facility] GLUCOSE POCon 10-26-2024 Glucose [Mass/Vol] 123 mg/dL 70 - 179 mg/dL [facility] POC Sample Type CAPBL [facility] Glucose [Mass/Vol] 150 mg/dL 70 - 179 mg/dL [facility] POC Sample Type [facility] Glucose [Mass/Vol] 136 mg/dL 70 - 179 mg/dL [facility] POC Sample Type [facility] RF videography Hypopharynx a nd Esophagus Views W liquid and paste contrast PO during swallowingon 10-26-2024 RADIOLOGY RADIOLOGY [facility] Radiology Study observation (narrative) [facility] RF videography Hypopharynx a nd Esophagus Views W liquid and paste contrast PO during swallowingOrdered By: Sveta Morillo on 10-26-2024 [facility] Work Phone: SPEECH MODIFIED BARIUM SWALL on 10-26-2024 [facility] URINALYSIS REFLEX TO CULTURE PERFORMABLEOrdered By: Madhavi Lundberg on 10-26-2024 Appearance (U) Cloudy Abnormal Clear [facility] Bacteria LM Ql (Urine sed) PRESENT Abnormal ABSENT [facility] Color (U) Yellow Yellow [facility] Epithelial cells.squamous LM Ql (Urine sed) 0-2/hpf 0-2/hpf, 3-5/hpf = 1+ [facility] Glucose Test strip (U) [Mass/Vol] Negative Negative [facility] Interpretation and review of laboratory results Abnormal [facility] Ketones (U) [Mass/Vol] Negative Negative [facility] Leukocyte esterase Test strip Ql (U) Large Abnormal Negative [facility] Nitrite Ql (U) Positive Abnormal Negative [facility] pH (U) 6.5 [pH] 5.0 - 7.[address] [facility] Protein (U) [Mass/Vol] Trace Abnormal Negative [facility] RBC (U) [#/Vol] Trace Abnormal [facility] RBC LM.HPF (Urine sed) [#/Area] 3-5 Abnormal [facility] Specific gravity (U) [Rel density] 1.016 1.001 - 1.035 [facility] Urobilinogen (U) [Mass/Vol] 0.2 E.U./dL 0.2 E.U/dL, 1.0 E.U/dL [facility] WBC LM.HPF (Urine sed) [#/Area] /[HPF] Abnormal [facility] URINALYSIS REFLEX TO CULTURE PERFORMABLEon 10-26-2024 Appearance (U) Cloudy Abnormal Clear [facility] Comment on above: Order Comment: For i ndwelling catheters, specimen collection is acceptable on catheter day 1 and 2 only. ? Performed By: #### U [id number] #### [facility] (DEFAULT) [address] [place] [address] Bacteria PRESENT Abnormal ABSENT [facility] Comment on above: Order Comment: For i ndwelling catheters, specimen collection is acceptable on catheter day 1 and 2 only. ? Performed By: #### U [id number] #### [facility] (DEFAULT) [address] [place] [address] Blood Urine Trace Abnormal Negative [facility] Comment on above: Order Comment: For i ndwelling catheters, specimen collection is acceptable on catheter day 1 and 2 only. ? Performed By: #### U [id number] #### [facility] (DEFAULT) [address] [place] [address] Color (U) Yellow Normal Yellow [facility] Comment on above: Order Comment: For i ndwelling catheters, specimen collection is acceptable on catheter day 1 and 2 only. ? Performed By: #### U [id number] #### [facility] (DEFAULT) [address] [place] [address] Glucose Ql (U) Negative Normal Negative [facility] Comment on above: Order Comment: For i ndwelling catheters, specimen collection is acceptable on catheter day 1 and 2 only. ? Performed By: #### U [id number] #### [facility] (DEFAULT) [address] [place] [address] Ketones Ql (U) Negative Normal Negative [facility] Comment on above: Order Comment: For i ndwelling catheters, specimen collection is acceptable on catheter day 1 and 2 only. ? Performed By: #### U [id number] #### [facility] (DEFAULT) [address] [place] [address] Leukocyte esterase Test strip Ql (U) Large Abnormal Negative [facility] Comment on above: Order Comment: For i ndwelling catheters, specimen collection is acceptable on catheter day 1 and 2 only. ? Performed By: #### U [id number] #### [facility] (DEFAULT) [address] [place] [address] Nitrites Urine Positive Abnormal Negative [facility] Comment on above: Order Comment: For i ndwelling catheters, specimen collection is acceptable on catheter day 1 and 2 only. ? Performed By: #### U [id number] #### [facility] (DEFAULT) [address] [place] [address] pH (U) 6.5 [pH] Normal 5.0-7.0 [facility] Comment on above: Order Comment: For i ndwelling catheters, specimen collection is acceptable on catheter day 1 and 2 only. ? Performed By: #### U [id number] #### [facility] (DEFAULT) [address] [place] [address] Protein Urine Trace Abnormal Negative [facility] Comment on above: Order Comment: For i ndwelling catheters, specimen collection is acceptable on catheter day 1 and 2 only. ? Performed By: #### U [id number] #### [facility] (DEFAULT) [address] [place] [address] RBC Urine 3-5 Abnormal 0-2 [facility] Comment on above: Order Comment: For i ndwelling catheters, specimen collection is acceptable on catheter day 1 and 2 only. ? Performed By: #### U [id number] #### [facility] (DEFAULT) [address] [place] [address] Specific [place]kom Urine 1.016 Normal 1.001-1.03 5 [facility] Comment on above: Order Comment: For i ndwelling catheters, specimen collection is acceptable on catheter day 1 and 2 only. ? Performed By: #### U [id number] #### U [facility] (DEFAULT) [address] [address] Squamous/Epithelial Cells, Urine 0-2/hpf Normal 0-2/hpf, 3-5/hpf = 1+ [facility] Comment on above: Order Comment: For i ndwelling catheters, specimen collection is acceptable on catheter day 1 and 2 only. ? Performed By: #### U [id number] #### U [facility] (DEFAULT) [address] [address] Urobilinogen Urine 0.2 E.U./dL Normal 0.2 E.U/dL, 1.0 E.U/dL [facility] Comment on above: Order Comment: For i ndwelling catheters, specimen collection is acceptable on catheter day 1 and 2 only. ? Performed By: #### U [id number] #### U [facility] (DEFAULT) [address] [address] WBC LM.HPF (Urine sed) [#/Area] /[HPF] Abnormal 0 - 5 [facility] Comment on above: Order Comment: For i ndwelling catheters, specimen collection is acceptable on catheter day 1 and 2 only. ? Performed By: #### U [id number] #### [facility] (DEFAULT) [address] [address] URINE CULTUREon 10-26-2024 Bacteria identified Cx Nom (U) Normal [facility] Comment on above: Order Comment: For i [...] Performed By: #### U R #### U [facility] (DEFAULT) [address] [place] [address] XR FLUORO MODIFIED BARIUM SW ALLOW WITH [...] for further details and dietary recommendations. Normal [facility] 102on 10-25-2024 102 HNO ID: [id number] Author: CARLYLE HUANG HDA Service: ? Author Type: ? Type: 102 Filed: 10/25/2024 11:43 Note Text: Code Status: Full Code Normal [facility] CBC AND ELECTRONIC DIFFon Basophils (Bld) [#/Vol] 0.14 10*3/uL 0.00 - 0.15 K/uL [facility] Basophils/100 WBC (Bld) 1.4 % [facility] Differential cell count method Nom (Bld) [facility] Eosinophils (Bld) [#/Vol] 1.14 10*3/uL High 0.00 - 0.42 K/uL [facility] Eosinophils/100 WBC (Bld) 11.4 % [facility] Erythrocyte distribution width (RBC) [Ratio] 13 % 10.8 - 14.9 % [facility] Hematocrit (Bld) [Volume fraction] 37.4 % 34.9 - 44.3 % [facility] Hemoglobin (Bld) [Mass/Vol] 11.9 g/dL 11.4 - 15.2 g/dL [facility] Immature granulocytes (Bld) [#/Vol] 0.06 10*3/uL NINF - 0.08 K/uL [facility] Immature granulocytes/100 WBC (Bld) 0.6 % [facility] Interpretation and review of laboratory results Abnormal [facility] Lymphocytes (Bld) [#/Vol] 1.15 10*3/uL Low 1.16 - 3.51 K/uL [facility] Lymphocytes/100 WBC (Bld) 11.5 % [facility] MCH (RBC) [Entitic mass] 31.1 pg 25.9 - 33.9 pg [facility] MCHC (RBC) [Mass/Vol] 31.8 g/dL 31.4 - 35.9 g/dL [facility] MCV (RBC) [Entitic vol] 97.7 fL 79.6 - 97.7 fL [facility] Monocytes (Bld) [#/Vol] 0.88 10*3/uL High 0.22 - 0.87 K/uL [facility] Monocytes/100 WBC (Bld) 8.8 % [facility] Neutrophils (Bld) [#/Vol] 6.66 10*3/uL 1.64 - 7.28 K/uL [facility] Nucleated RBC/100 WBC (Bld) [Ratio] 0 % [facility] Platelet mean volume (Bld) [Entitic vol] 9.4 fL 8.5 - 12.2 fL [facility] Platelets (Bld) [#/Vol] 349 10*3/uL 150 - 393 K/uL [facility] RBC (Bld) [#/Vol] 3.83 10*6/uL Low [facility] Segmented neutrophils/100 WBC (Bld) 66.3 % [facility] WBC (Bld) [#/Vol] 10.03 10*3/uL 3.99 - 11.19 K/uL [facility] Basophils (Bld) [#/Vol] 0.14 10*3/uL Normal 0.00-0.15 [facility] Comment on above: Performed By: #### U [id number] #### [facility] (DEFAULT) [address] [place] [address] Basophils/100 WBC (Bld) 1.4 % Normal [facility] Comment on above: Performed By: #### U [id number] #### [facility] (DEFAULT) [address] [address] DIFF STATUS Electronic Differential Normal [facility] Comment on above: Performed By: #### U [id number] #### [facility] (DEFAULT) [address] [place] [address] Eosinophils (Bld) [#/Vol] 1.14 10*3/uL High 0.00-0.42 [facility] Comment on above: Performed By: #### U [id number] #### [facility] (DEFAULT) [address] [place] [address] Eosinophils/100 WBC (Bld) 11.4 % Normal [facility] Comment on above: Performed By: #### U [id number] #### [facility] (DEFAULT) [address] [place] [address] Hematocrit (Bld) [Volume fraction] 37.4 % Normal 34.9-44.3 [facility] Comment on above: Performed By: #### U [id number] #### [facility] (DEFAULT) [address] [place] [address] Hemoglobin (Bld) [Mass/Vol] 11.9 g/dL Normal 11.4-15.2 [facility] Comment on above: Performed By: #### U [id number] #### [facility] (DEFAULT) [address] [address] Immature Grans % 0.6 % Normal [facility] Comment on above: Performed By: #### U [id number] #### U [facility] (DEFAULT) [address] [address] Immature Grans Absolute 0.06 K/uL Normal <=0.08 [facility] Comment on above: Performed By: #### U [id number] #### U [facility] (DEFAULT) [address] [address] Lymphocytes (Bld) [#/Vol] 1.15 10*3/uL Low 1.16-3.51 [facility] Comment on above: Performed By: #### U [id number] #### U [facility] (DEFAULT) [address] [address] Lymphocytes/100 WBC (Bld) 11.5 % Normal [facility] Comment on above: Performed By: #### U [id number] #### U [facility] (DEFAULT) [address] [address] MCV (RBC) [Entitic vol] 97.7 fL Normal 79.6-97.7 [facility] Comment on above: Performed By: #### U [id number] #### [facility] (DEFAULT) [address] [address] Mean Cell Hgb 31.1 pg Normal 25.9-33.9 [facility] Comment on above: Performed By: #### U [id number] #### U [facility] (DEFAULT) [address] [address] Mean Cell Hgb Conc 31.8 g/dL Normal 31.4-35.9 [facility] Comment on above: Performed By: #### U [id number] #### U [facility] (DEFAULT) [address] [address] Monocytes (Bld) [#/Vol] 0.88 10*3/uL High 0.22-0.87 [facility] Comment on above: Performed By: #### U [id number] #### [facility] (DEFAULT) [address] [place] [address] Monocytes/100 WBC (Bld) 8.8 % Normal [facility] Comment on above: Performed By: #### U [id number] #### [facility] (DEFAULT) [address] [place] [address] Nucleated RBC 0.0 /100 WBC Normal <=0.2 [facility] Comment on above: Performed By: #### U [id number] #### [facility] (DEFAULT) [address] [place] [address] Platelet mean volume (Bld) [Entitic vol] 9.4 fL Normal 8.5-12.2 [facility] Comment on above: Performed By: #### U [id number] #### [facility] (DEFAULT) [address] [address] Platelets (Bld) [#/Vol] 349 10*3/uL Normal 150-393 [facility] Comment on above: Performed By: #### U [id number] #### [facility] (DEFAULT) [address] [address] RBC (Bld) [#/Vol] 3.83 10*6/uL Low 3.91-5.04 [facility] Comment on above: Performed By: #### U [id number] #### [facility] (DEFAULT) [address] [place] [address] RBC Distribution 13.0 % Normal 10.8-14.9 [facility] Comment on above: Performed By: #### U [id number] #### [facility] (DEFAULT) [address] [address] Segs + Bands Auto 66.3 % Normal [facility] Comment on above: Performed By: #### U [id number] #### U [facility] (DEFAULT) [address] [place] [address] Segs + Bands,Absolute Auto 6.66 K/uL Normal 1.64-7.28 [facility] Comment on above: Performed By: #### U [id number] #### [facility] (DEFAULT) [address] [place] [address] WBC (Bld) [#/Vol] 10.03 10*3/uL Normal 3.99-11.19 [facility] Comment on above: Performed By: #### U [id number] #### [facility] (DEFAULT) [address] [address] CHEM 7 (LYTES,BUN,CREA,GLUC) on 10-25-2024 Anion gap [Moles/Vol] 14 mmol/L 7 - 17 mmol/L [facility] Chloride [Moles/Vol] 102 mmol/L 98 - 10 8 mmol/L [facility] CO2 [Moles/Vol] 26 mmol/L 21 - 31 mmol/L [facility] Creatinine [Mass/Vol] 0.76 mg/dL 0.50 - 1.20 mg/dL [facility] eGFR, CKD-EPI, Female 76 - PINF [facility] Glucose [Mass/Vol] 124 mg/dL 70 - 179 mg/dL [facility] Interpretation and review of laboratory results Abnormal [facility] Osmolality Calc [Osmolality] 297 [facility] Potassium [Moles/Vol] 4.7 mmol/L 3.5 - 5.0 mmol/L [facility] Sodium [Moles/Vol] 137 mmol/L 135 - 145 mmol/L [facility] Urea nitrogen [Mass/Vol] 31 mg/dL High 7 - 25 mg/dL [facility] Urea nitrogen/Creatinine [Mass ratio] 41 mg/mg [facility] Anion gap [Moles/Vol] 14 mmol/L Normal 7-17 [facility] Comment on above: Performed By: #### U R #### [facility] (DEFAULT) [address] [place] [address] Chloride [Moles/Vol] 102 mmol/L Normal 98-108 [facility] Comment on above: Performed By: #### U R #### U [facility] (DEFAULT) [address] [place] [address] CO2 [Moles/Vol] 26 mmol/L Normal 21-31 [facility] Comment on above: Performed By: #### U R #### U [facility] (DEFAULT) [address] [place] [address] Creatinine [Mass/Vol] 0.76 mg/dL Normal 0.50-1.20 [facility] Comment on above: Performed By: #### U R #### [facility] (DEFAULT) [address] [address] GFR/1.73 sq M.predicted among non-blacks MDRD (S/P/Bld) [Vol rate/Area] 76 mL/min/{1.73_m2} Normal >=60 [facility] Comment on above: Result Comment: Repo rted eGFR is based on the CKD-EPI 2020 equation using creatinine, age, and sex. Performed By: #### U R #### U [facility] (DEFAULT) [address] [address] Glucose [Mass/Vol] 124 mg/dL Normal Nonfastin g : 70-179 mg/dL; Fastin-99 [facility] Comment on above: Performed By: #### U R #### U [facility] (DEFAULT) [address] [address] Osmolality [Osmolality] 297 mosm/kg Normal 278-305 [facility] Comment on above: Performed By: #### U R #### [facility] (DEFAULT) [address] [address] Potassium [Moles/Vol] 4.7 mmol/L Normal 3.5-5.0 [facility] Comment on above: Performed By: #### U R #### [facility] (DEFAULT) [address] [place] [address] Sodium [Moles/Vol] 137 mmol/L Normal 135-145 [facility] Comment on above: Performed By: #### U R #### [facility] (DEFAULT) [address] [place] [address] Urea nitrogen [Mass/Vol] 31 mg/dL High 7-25 [facility] Comment on above: Performed By: #### U R #### U [facility] (DEFAULT) [address] [place] [address] Urea nitrogen/Creatinine [Mass ratio] 41 mg/mg Normal [facility] Comment on above: Performed By: #### U R #### [facility] (DEFAULT) [address] [place] [address] GLUCOSE POCon 10-25-2024 Glucose [Mass/Vol] 132 mg/dL 70 - 179 mg/dL [facility] POC Sample Type CAPBL [facility] Glucose [Mass/Vol] 115 mg/dL 70 - 179 mg/dL [facility] POC Sample Type CAPBL [facility] URINE CULTUREon 10-25-2024 Bacteria identified Cx Nom (Unsp spec) No Growth [facility] EXTRA MICROon 10-24-2024 [facility] GLUCOSE POCon 10-24-2024 Glucose [Mass/Vol] 135 mg/dL 70 - 179 mg/dL [facility]OC [facility] Glucose [Mass/Vol] 149 mg/dL 70 - 179 mg/dL [facility]OC [facility] Glucose [Mass/Vol] 108 mg/dL 70 - 179 mg/dL [facility] POC Sample Type CAPBL [facility] Glucose [Mass/Vol] 148 mg/dL 70 - 179 mg/dL [facility] POC Sample Type CAPBL [facility] URINALYSIS REFLEX TO CULTURE PERFORMABLEOrdered By: Jennifer Sharma on 10-24-2024 Appearance (U) Cloudy Abnormal Clear [facility] Bacteria LM Ql (Urine sed) ABSENT ABSENT [facility] Color (U) Yellow Yellow [facility] Epithelial cells.squamous LM Ql (Urine sed) 0-2/hpf 0-2/hpf, 3-5/hpf = 1+ [facility] Glucose Test strip (U) [Mass/Vol] Negative Negative [facility] Hyaline casts (Urine sed) [#/Area] 0 - 2 Abnormal (none) /LPF [facility] Interpretation and review of laboratory results Abnormal [facility] Ketones (U) [Mass/Vol] Negative Negative [facility] Leukocyte esterase Test strip Ql (U) Moderate Abnormal Negative [facility] Mucus Ql (Urine sed) PRESENT [facility] Nitrite Ql (U) Negative Negative [facility] pH (U) 6.5 [pH] 5.0 - 7.0 [facility] Protein (U) [Mass/Vol] Trace Abnormal Negative [facility] RBC (U) [#/Vol] Negative Negative [facility] RBC LM.HPF (Urine sed) [#/Area] 11-25 Abnormal [facility] Specific gravity (U) [Rel density] 1.018 1.001 - 1.035 [facility] Urobilinogen (U) [Mass/Vol] 0.2 E.U./dL 0.2 E.U/dL, 1.0 E.U/dL [facility] WBC LM.HPF (Urine sed) [#/Area] /[HPF] Abnormal [facility] URINALYSIS REFLEX TO CULTURE PERFORMABLEon 10-24-2024 Appearance (U) Cloudy Abnormal Clear [facility] Comment on above: Order Comment: For i ndwelling catheters, specimen collection is acceptable on catheter day 1 and 2 only. ? Performed By: #### A 1CB, [id number] #### U [facility] (DEFAULT) [address] [place] [address] Bacteria ABSENT Normal ABSENT [facility] Comment on above: Order Comment: For i ndwelling catheters, specimen collection is acceptable on catheter day 1 and 2 only. ? Performed By: #### A 1CB, [id number] #### [facility] (DEFAULT) [address] [place] [address] Blood Urine Negative Normal Negative [facility] Comment on above: Order Comment: For i ndwelling catheters, specimen collection is acceptable on catheter day 1 and 2 only. ? Performed By: #### A 1CB, [id number] #### [facility] (DEFAULT) [address] [place] [address] Color (U) Yellow Normal Yellow [facility] Comment on above: Order Comment: For i ndwelling catheters, specimen collection is acceptable on catheter day 1 and 2 only. ? Performed By: #### A 1CB, [id number] #### [facility] (DEFAULT) [address] [place] [address] Glucose Ql (U) Negative Normal Negative [facility] Comment on above: Order Comment: For i ndwelling catheters, specimen collection is acceptable on catheter day 1 and 2 only. ? Performed By: #### A 1CB, [id number] #### U [facility] (DEFAULT) [address] [place] [address] Hyaline casts LM Ql (Urine sed) 0 - 2 Abnormal (none) [facility] Comment on above: Order Comment: For i ndwelling catheters, specimen collection is acceptable on catheter day 1 and 2 only. ? Performed By: #### A 1CB, [id number] #### [facility] (DEFAULT) [address] [place] [address] Ketones Ql (U) Negative Normal Negative [facility] Comment on above: Order Comment: For i ndwelling catheters, specimen collection is acceptable on catheter day 1 and 2 only. ? Performed By: #### A 1CB, [id number] #### U [facility] (DEFAULT) [address] [place] [address] Leukocyte esterase Test strip Ql (U) Moderate Abnormal Negative [facility] Comment on above: Order Comment: For i ndwelling catheters, specimen collection is acceptable on catheter day 1 and 2 only. ? Performed By: #### A 1CB, [id number] #### [facility] (DEFAULT) [address] [place] [address] Mucus Ql (Urine sed) PRESENT Normal [facility] Comment on above: Order Comment: For i ndwelling catheters, specimen collection is acceptable on catheter day 1 and 2 only. ? Performed By: #### A 1CB, [id number] #### [facility] (DEFAULT) [address] [place] [address] Nitrites Urine Negative Normal Negative [facility] Comment on above: Order Comment: For i ndwelling catheters, specimen collection is acceptable on catheter day 1 and 2 only. ? Performed By: #### A 1CB, [id number] #### [facility] (DEFAULT) [address] [place] [address] pH (U) 6.5 [pH] Normal 5.0-7.0 [facility] Comment on above: Order Comment: For i ndwelling catheters, specimen collection is acceptable on catheter day 1 and 2 only. ? Performed By: #### A 1CB, [id number] #### [facility] (DEFAULT) [address] [place] [address] Protein Urine Trace Abnormal Negative [facility] Comment on above: Order Comment: For i ndwelling catheters, specimen collection is acceptable on catheter day 1 and 2 only. ? Performed By: #### A 1CB, [id number] #### [facility] (DEFAULT) [address] [place] [address] RBC Urine 11-25 Abnormal 0-2 [facility] Comment on above: Order Comment: For i ndwelling catheters, specimen collection is acceptable on catheter day 1 and 2 only. ? Performed By: #### A 1CB, [id number] #### [facility] (DEFAULT) [address] [address] Specific [place] Urine 1.018 Normal 1.001-1.03 5 [facility] Comment on above: Order Comment: For i ndwelling catheters, specimen collection is acceptable on catheter day 1 and 2 only. ? Performed By: #### A 1CB, [id number] #### Eliu [facility] (DEFAULT) [address] [place] [address] Squamous/Epithelial Cells, Urine 0-2/hpf Normal 0-2/hpf, 3-5/hpf = 1+ [facility] Comment on above: Order Comment: For i ndwelling catheters, specimen collection is acceptable on catheter day 1 and 2 only. ? Performed By: #### A 1CB, [id number] #### [facility] (DEFAULT) [address] [address] Urobilinogen Urine 0.2 E.U./dL Normal 0.2 E.U/dL, 1.0 E.U/dL [facility] Comment on above: Order Comment: For i ndwelling catheters, specimen collection is acceptable on catheter day 1 and 2 only. ? Performed By: #### A 1CB, [id number] #### [facility] (DEFAULT) [address] [address] WBC LM.HPF (Urine sed) [#/Area] /[HPF] Abnormal 0 - 5 [facility] Comment on above: Order Comment: For i ndwelling catheters, specimen collection is acceptable on catheter day 1 and 2 only. ? Performed By: #### A 1CB, [id number] #### [facility] (DEFAULT) [address] [address] URINE CULTUREon 10-24-2024 Bacteria identified Cx Nom (U) No Growth Normal [facility] Comment on above: Order Comment: For i [...] >=100,000 CFU/mL. Performed By: #### A 1CB, [id number] #### [facility] (DEFAULT) [address] [place] [address] XR ABDOMEN 1 VIEW PORTABLEon 10-24-2024 XR [...] stool ball. Nonobstructive bowel gas pattern. Normal [facility] XR Abdomen Single viewon RADIOLOGY RADIOLOGY [facility] Radiology Study observation (narrative) [facility] XR Abdomen Single viewOrdere d By: Angel Conner on 10-24-2024 [facility] Work Phone: GLUCOSE POCon 10-23-2024 Glucose [Mass/Vol] 138 mg/dL 70 - 179 mg/dL [facility] POC Sample Type CAPBL [facility] Glucose [Mass/Vol] 113 mg/dL 70 - 179 mg/dL [facility] POC Sample Type CAPBL [facility] Glucose [Mass/Vol] 109 mg/dL 70 - 179 mg/dL [facility] POC Sample Type CAPBL [facility] Glucose [Mass/Vol] 142 mg/dL 70 - 179 mg/dL [facility] POC Sample Type CAPBL [facility] CALCIUMon 10-22-2024 Calcium [Mass/Vol] 9.6 mg/dL 8.6 - 10. 5 mg/dL [facility] Calcium [Mass/Vol] 9.6 mg/dL Normal 8.6-10.5 [facility] Comment on above: Performed By: #### C HM7 #### [facility] (DEFAULT) [address] [place] [address] CBC AND ELECTRONIC DIFFon Basophils (Bld) [#/Vol] 0.16 10*3/uL High 0.00 - 0.15 K/uL [facility] Basophils/100 WBC (Bld) 1.3 % [facility] Differential cell count method Nom (Bld) Electronic Differential [facility] Eosinophils (Bld) [#/Vol] 0.69 10*3/uL High 0.00 - 0.42 K/uL [facility] Eosinophils/100 WBC (Bld) 5.5 % [facility] Erythrocyte distribution width (RBC) [Ratio] 13.1 % 10.8 - 14.9 % [facility] Hematocrit (Bld) [Volume fraction] 43.3 % 34.9 - 44.3 % [facility] Hemoglobin (Bld) [Mass/Vol] 13.8 g/dL 11.4 - 15.2 g/dL [facility] Immature granulocytes (Bld) [#/Vol] 0.06 10*3/uL NINF - 0.08 K/uL [facility] Immature granulocytes/100 WBC (Bld) 0.5 % [facility] Interpretation and review of laboratory results Abnormal [facility] Lymphocytes (Bld) [#/Vol] 1.66 10*3/uL 1.16 - 3.51 K/uL [facility] Lymphocytes/100 WBC (Bld) 13.2 % [facility] MCH (RBC) [Entitic mass] 30.8 pg 25.9 - 33.9 pg [facility] MCHC (RBC) [Mass/Vol] 31.9 g/dL 31.4 - 35.9 g/dL [facility] MCV (RBC) [Entitic vol] 96.7 fL 79.6 - 97.7 fL [facility] Monocytes (Bld) [#/Vol] 1.09 10*3/uL High 0.22 - 0.87 K/uL [facility] Monocytes/100 WBC (Bld) 8.7 % [facility] Neutrophils (Bld) [#/Vol] 8.89 10*3/uL High 1.64 - 7.28 K/uL [facility] Nucleated RBC/100 WBC (Bld) [Ratio] 0 % NINF [facility] Platelet mean volume (Bld) [Entitic vol] 9.4 fL 8.5 - 12.2 fL [facility] Platelets (Bld) [#/Vol] 323 10*3/uL 150 - 393 K/uL [facility] RBC (Bld) [#/Vol] 4.48 10*6/uL [facility] Segmented neutrophils/100 WBC (Bld) 70.8 % [facility] WBC (Bld) [#/Vol] 12.55 10*3/uL High 3.99 - 11.19 K/uL [facility] Basophils (Bld) [#/Vol] 0.16 10*3/uL High 0.00-0.15 [facility] Comment on above: Performed By: #### U R #### [facility] (DEFAULT) [address] [address] Basophils/100 WBC (Bld) 1.3 % Normal [facility] Comment on above: Performed By: #### U R #### [facility] (DEFAULT) [address] [address] DIFF STATUS Electronic Differential Normal [facility] Comment on above: Performed By: #### U R #### [facility] (DEFAULT) [address] [address] Eosinophils (Bld) [#/Vol] 0.69 10*3/uL High 0.00-0.42 [facility] Comment on above: Performed By: #### U R #### [facility] (DEFAULT) [address] [address] Eosinophils/100 WBC (Bld) 5.5 % Normal [facility] Comment on above: Performed By: #### U R #### [facility] (DEFAULT) [address] [address] Hematocrit (Bld) [Volume fraction] 43.3 % Normal 34.9-44.3 [facility] Comment on above: Performed By: #### U R #### [facility] (DEFAULT) [address] [address] Hemoglobin (Bld) [Mass/Vol] 13.8 g/dL Normal 11.4-15.2 [facility] Comment on above: Performed By: #### U R #### [facility] (DEFAULT) [address] [address] Immature Grans % 0.5 % Normal [facility] Comment on above: Performed By: #### U R #### [facility] (DEFAULT) [address] [address] Immature Grans Absolute 0.06 K/uL Normal <=0.08 [facility] Comment on above: Performed By: #### U R #### [facility] (DEFAULT) [address] [address] Lymphocytes (Bld) [#/Vol] 1.66 10*3/uL Normal 1.16-3.51 [facility] Comment on above: Performed By: #### U R #### [facility] (DEFAULT) [address] [address] Lymphocytes/100 WBC (Bld) 13.2 % Normal [facility] Comment on above: Performed By: #### U R #### [facility] (DEFAULT) [address] [address] MCV (RBC) [Entitic vol] 96.7 fL Normal 79.6-97.7 [facility] Comment on above: Performed By: #### U R #### [facility] (DEFAULT) [address] [address] Mean Cell Hgb 30.8 pg Normal 25.9-33.9 [facility] Comment on above: Performed By: #### U R #### [facility] (DEFAULT) [address] [address] Mean Cell Hgb Conc 31.9 g/dL Normal 31.4-35.9 [facility] Comment on above: Performed By: #### U R #### [facility] (DEFAULT) [address] [address] Monocytes (Bld) [#/Vol] 1.09 10*3/uL High 0.22-0.87 [facility] Comment on above: Performed By: #### U R #### [facility] (DEFAULT) [address] [address] Monocytes/100 WBC (Bld) 8.7 % Normal [facility] Comment on above: Performed By: #### U R #### [facility] (DEFAULT) [address] [address] Nucleated RBC 0.0 /100 WBC Normal <=0.2 [facility] Comment on above: Performed By: #### U R #### [facility] (DEFAULT) [address] [address] Platelet mean volume (Bld) [Entitic vol] 9.4 fL Normal 8.5-12.2 [facility] Comment on above: Performed By: #### U R #### [facility] (DEFAULT) [address] [place] [address] Platelets (Bld) [#/Vol] 323 10*3/uL Normal 150-393 [facility] Comment on above: Performed By: #### U R #### [facility] (DEFAULT) [address] [place] [address] RBC (Bld) [#/Vol] 4.48 10*6/uL Normal 3.91-5.04 [facility] Comment on above: Performed By: #### U R #### [facility] (DEFAULT) [address] [place] [address] RBC Distribution 13.1 % Normal 10.8-14.9 [facility] Comment on above: Performed By: #### U R #### [facility] (DEFAULT) [address] [place] [address] Segs + Bands Auto 70.8 % Normal [facility] Comment on above: Performed By: #### U R #### [facility] (DEFAULT) [address] [place] [address] Segs + Bands,Absolute Auto 8.89 K/uL High 1.64-7.28 [facility] Comment on above: Performed By: #### U R #### [facility] (DEFAULT) [address] [place] [address] WBC (Bld) [#/Vol] 12.55 10*3/uL High 3.99-11.19 [facility] Comment on above: Performed By: #### U R #### [facility] (DEFAULT) [address] [place] [address] CHEM 7 (LYTES,BUN,CREA,GLUC) on 10-22-2024 Anion gap [Moles/Vol] 11 mmol/L 7 - 17 mmol/L [facility] Chloride [Moles/Vol] 104 mmol/L 98 - 10 8 mmol/L [facility] CO2 [Moles/Vol] 29 mmol/L 21 - 31 mmol/L [facility] Creatinine [Mass/Vol] 0.71 mg/dL 0.50 - 1.20 mg/dL [facility] eGFR, CKD-EPI, Female 83 - PINF [facility] Glucose [Mass/Vol] 112 mg/dL 70 - 179 mg/dL [facility] Osmolality Calc [Osmolality] 297 [facility] Potassium [Moles/Vol] 4.7 mmol/L 3.5 - 5.0 mmol/L [facility] Sodium [Moles/Vol] 139 mmol/L 135 - 145 mmol/L [facility] Urea nitrogen [Mass/Vol] 24 mg/dL 7 - 25 mg/dL [facility] Urea nitrogen/Creatinine [Mass ratio] 34 mg/mg [facility] Anion gap [Moles/Vol] 11 mmol/L Normal 7-17 [facility] Comment on above: Performed By: #### T YPEC #### [facility] (DEFAULT) [address] [address] Chloride [Moles/Vol] 104 mmol/L Normal 98-108 [facility] Comment on above: Performed By: #### T YPEC #### [facility] (DEFAULT) [address] [address] CO2 [Moles/Vol] 29 mmol/L Normal 21-31 [facility] Comment on above: Performed By: #### T YPEC #### [facility] (DEFAULT) [address] [address] Creatinine [Mass/Vol] 0.71 mg/dL Normal 0.50-1.20 [facility] Comment on above: Performed By: #### T YPEC #### [facility] (DEFAULT) [address] [address] GFR/1.73 sq M.predicted among non-blacks MDRD (S/P/Bld) [Vol rate/Area] 83 mL/min/{1.73_m2} Normal >=60 [facility] Comment on above: Result Comment: Repo rted eGFR is based on the CKD-EPI 2020 equation using creatinine, age, and sex. Performed By: #### T YPEC #### [facility] (DEFAULT) [address] [place] [address] Glucose [Mass/Vol] 112 mg/dL Normal Nonfastin g : 70-179 mg/dL; Fastin-99 [facility] Comment on above: Performed By: #### T YPEC #### U [facility] (DEFAULT) [address] [place] [address] Osmolality [Osmolality] 297 mosm/kg Normal 278-305 [facility] Comment on above: Performed By: #### T YPEC #### [facility] (DEFAULT) [address] [place] [address] Potassium [Moles/Vol] 4.7 mmol/L Normal 3.5-5.0 [facility] Comment on above: Performed By: #### T YPEC #### [facility] (DEFAULT) [address] [place] [address] Sodium [Moles/Vol] 139 mmol/L Normal 135-145 [facility] Comment on above: Performed By: #### T YPEC #### [facility] (DEFAULT) [address] [place] [address] Urea nitrogen [Mass/Vol] 24 mg/dL Normal 7-25 [facility] Comment on above: Performed By: #### T YPEC #### [facility] (DEFAULT) [address] [place] [address] Urea nitrogen/Creatinine [Mass ratio] 34 mg/mg Normal [facility] Comment on above: Performed By: #### T YPEC #### [facility] (DEFAULT) [address] [place] [address] FLEXIBLE ENDOSCOPIC EVALUATI ON OF SWALLOWINGon 10-22-2024 RADIOLOGY FLEXIBLE ENDOSCOPIC EVALUATI ON OF SWALLOWINGOrdered By: Unassigned Pacs on 10-22-2024 [facility] Work Phone: GLUCOSE POCon 10-22-2024 Glucose [Mass/Vol] 154 mg/dL 70 - 179 mg/dL [facility] POC Sample Type CAPBL [facility] Glucose [Mass/Vol] 152 mg/dL 70 - 179 mg/dL [facility] POC Sample Type CAPBL [facility] Glucose [Mass/Vol] 119 mg/dL 70 - 179 mg/dL [facility] POC Sample Type CAPBL [facility] Glucose [Mass/Vol] 141 mg/dL 70 - 179 mg/dL [facility] POC Sample Type CAPBL [facility] MAGNESIUMon 10-22-2024 Magnesium [Mass/Vol] 2.2 mg/dL 1.6 - 2 .6 mg/dL [facility] Magnesium [Mass/Vol] 2.2 mg/dL Normal 1.6-2.6 [facility] Comment on above: Performed By: #### C HM7 #### [facility] (DEFAULT) [address] [place] [address] No Panel Informationon 10-22 [facility] Interpretation and review of laboratory results Normal [facility] PT,INR,PTTon 10-22-2024 aPTT Coag (PPP) [Time] 29.8 s [facility] INR Coag (Bld) [Relative time] 1 {INR} 0.9 - 1.1 [facility] Interpretation and review of laboratory results Normal [facility] PT Coag (PPP) [Time] 13 s [facility] aPTT Coag (Bld) [Time] 29.8 s Normal 24.0-34.3 [facility] Comment on above: Performed By: #### U [id number] #### [facility] (DEFAULT) [address] [place] [address] INR Coag (PPP) [Relative time] 1.0 {INR} Normal 0.9-1.1 [facility] Comment on above: Performed By: #### U [id number] #### [facility] (DEFAULT) [address] [place] [address] PT Coag (PPP) [Time] 13.0 s Normal 11.9-14.2 [facility] Comment on above: Performed By: #### U [id number] #### [facility] (DEFAULT) [address] [place] [address] CALCIUMon 10-21-2024 Calcium [Mass/Vol] 9 mg/dL 8.6 - 10. 5 mg/dL [facility] Calcium [Mass/Vol] 9.0 mg/dL Normal 8.6-10.5 [facility] Comment on above: Performed By: #### C HM7 #### [facility] (DEFAULT) [address] [place] [address] CBC AND ELECTRONIC DIFFon Basophils (Bld) [#/Vol] 0.13 10*3/uL 0.00 - 0.15 K/uL [facility] Basophils/100 WBC (Bld) 1.2 % [facility] Differential cell count method Nom (Bld) Electronic Differential [facility] Eosinophils (Bld) [#/Vol] 1.1 10*3/uL High 0.00 - 0.42 K/uL [facility] Eosinophils/100 WBC (Bld) 10.5 % [facility] Erythrocyte distribution width (RBC) [Ratio] 13.1 % 10.8 - 14.9 % [facility] Hematocrit (Bld) [Volume fraction] 44.6 % High 34.9 - 44.3 % [facility] Hemoglobin (Bld) [Mass/Vol] 14.3 g/dL 11.4 - 15.2 g/dL [facility] Immature granulocytes (Bld) [#/Vol] 0.04 10*3/uL NINF - 0.08 K/uL [facility] Immature granulocytes/100 WBC (Bld) 0.4 % [facility] Interpretation and review of laboratory results Abnormal [facility] Lymphocytes (Bld) [#/Vol] 1.53 10*3/uL 1.16 - 3.51 K/uL [facility] Lymphocytes/100 WBC (Bld) 14.7 % [facility] MCH (RBC) [Entitic mass] 31 pg 25.9 - 33.9 pg [facility] MCHC (RBC) [Mass/Vol] 32.1 g/dL 31.4 - 35.9 g/dL [facility] MCV (RBC) [Entitic vol] 96.5 fL 79.6 - 97.7 fL [facility] Monocytes (Bld) [#/Vol] 0.76 10*3/uL 0.22 - 0.87 K/uL [facility] Monocytes/100 WBC (Bld) 7.3 % [facility] Neutrophils (Bld) [#/Vol] 6.87 10*3/uL 1.64 - 7.28 K/uL [facility] Nucleated RBC/100 WBC (Bld) [Ratio] 0 % [facility] Platelet mean volume (Bld) [Entitic vol] 9.2 fL 8.5 - 12.2 fL [facility] Platelets (Bld) [#/Vol] 333 10*3/uL 150 - 393 K/uL [facility] RBC (Bld) [#/Vol] 4.62 10*6/uL [facility] Segmented neutrophils/100 WBC (Bld) 65.9 % [facility] WBC (Bld) [#/Vol] 10.43 10*3/uL 3.99 - 11.19 K/uL [facility] Basophils (Bld) [#/Vol] 0.13 10*3/uL Normal 0.00-0.15 [facility] Comment on above: Performed By: #### C HM7 #### [facility] (DEFAULT) [address] [place] [address] Basophils/100 WBC (Bld) 1.2 % Normal [facility] Comment on above: Performed By: #### C HM7 #### [facility] (DEFAULT) [address] [address] DIFF STATUS Electronic Differential Normal [facility] Comment on above: Performed By: #### C HM7 #### [facility] (DEFAULT) [address] [address] Eosinophils (Bld) [#/Vol] 1.10 10*3/uL High 0.00-0.42 [facility] Comment on above: Performed By: #### C HM7 #### [facility] (DEFAULT) [address] [address] Eosinophils/100 WBC (Bld) 10.5 % Normal [facility] Comment on above: Performed By: #### C HM7 #### [facility] (DEFAULT) [address] [address] Hematocrit (Bld) [Volume fraction] 44.6 % High 34.9-44.3 [facility] Comment on above: Performed By: #### C HM7 #### [facility] (DEFAULT) [address] [address] Hemoglobin (Bld) [Mass/Vol] 14.3 g/dL Normal 11.4-15.2 [facility] Comment on above: Performed By: #### C HM7 #### [facility] (DEFAULT) [address] [address] Immature Grans % 0.4 % Normal [facility] Comment on above: Performed By: #### C HM7 #### [facility] (DEFAULT) [address] [address] Immature Grans Absolute 0.04 K/uL Normal <=0.08 [facility] Comment on above: Performed By: #### C HM7 #### [facility] (DEFAULT) [address] [address] Lymphocytes (Bld) [#/Vol] 1.53 10*3/uL Normal 1.16-3.51 [facility] Comment on above: Performed By: #### C HM7 #### [facility] (DEFAULT) [address] [address] Lymphocytes/100 WBC (Bld) 14.7 % Normal [facility] Comment on above: Performed By: #### C HM7 #### [facility] (DEFAULT) [address] [address] MCV (RBC) [Entitic vol] 96.5 fL Normal 79.6-97.7 [facility] Comment on above: Performed By: #### C HM7 #### [facility] (DEFAULT) [address] [address] Mean Cell Hgb 31.0 pg Normal 25.9-33.9 [facility] Comment on above: Performed By: #### C HM7 #### [facility] (DEFAULT) [address] [address] Mean Cell Hgb Conc 32.1 g/dL Normal 31.4-35.9 [facility] Comment on above: Performed By: #### C HM7 #### [facility] (DEFAULT) [address] [address] Monocytes (Bld) [#/Vol] 0.76 10*3/uL Normal 0.22-0.87 [facility] Comment on above: Performed By: #### C HM7 #### [facility] (DEFAULT) [address] [address] Monocytes/100 WBC (Bld) 7.3 % Normal [facility] Comment on above: Performed By: #### C HM7 #### [facility] (DEFAULT) [address] [place] [address] Nucleated RBC 0.0 /100 WBC Normal <=0.2 [facility] Comment on above: Performed By: #### C HM7 #### [facility] (DEFAULT) [address] [place] [address] Platelet mean volume (Bld) [Entitic vol] 9.2 fL Normal 8.5-12.2 [facility] Comment on above: Performed By: #### C HM7 #### [facility] (DEFAULT) [address] [place] [address] Platelets (Bld) [#/Vol] 333 10*3/uL Normal 150-393 [facility] Comment on above: Performed By: #### C HM7 #### [facility] (DEFAULT) [address] [place] [address] RBC (Bld) [#/Vol] 4.62 10*6/uL Normal 3.91-5.04 [facility] Comment on above: Performed By: #### C HM7 #### [facility] (DEFAULT) [address] [place] [address] RBC Distribution 13.1 % Normal 10.8-14.9 [facility] Comment on above: Performed By: #### C HM7 #### [facility] (DEFAULT) [address] [place] [address] Segs + Bands Auto 65.9 % Normal [facility] Comment on above: Performed By: #### C HM7 #### [facility] (DEFAULT) [address] [place] [address] Segs + Bands,Absolute Auto 6.87 K/uL Normal 1.64-7.28 [facility] Comment on above: Performed By: #### C HM7 #### [facility] (DEFAULT) [address] [place] [address] WBC (Bld) [#/Vol] 10.43 10*3/uL Normal 3.99-11.19 [facility] Comment on above: Performed By: #### C HM7 #### [facility] (DEFAULT) [address] [place] [address] CHEM 7 (LYTES,BUN,CREA,GLUC) on 10-21-2024 Anion gap [Moles/Vol] 13 mmol/L 7 - 17 mmol/L [facility] Chloride [Moles/Vol] 103 mmol/L 98 - 10 8 mmol/L [facility] CO2 [Moles/Vol] 26 mmol/L 21 - 31 mmol/L [facility] Creatinine [Mass/Vol] 0.78 mg/dL 0.50 - 1.20 mg/dL [facility] eGFR, CKD-EPI, Female 74 - PINF [facility] Glucose [Mass/Vol] 106 mg/dL 70 - 179 mg/dL [facility] Osmolality Calc [Osmolality] 293 [facility] Potassium [Moles/Vol] 4.4 mmol/L 3.5 - 5.0 mmol/L [facility] Sodium [Moles/Vol] 138 mmol/L 135 - 145 mmol/L [facility] Urea nitrogen [Mass/Vol] 21 mg/dL 7 - 25 mg/dL [facility] Urea nitrogen/Creatinine [Mass ratio] 27 mg/mg [facility] Anion gap [Moles/Vol] 13 mmol/L Normal 7-17 [facility] Comment on above: Performed By: #### C HM7 #### U [facility] (DEFAULT) [address] [place] [address] Chloride [Moles/Vol] 103 mmol/L Normal 98-108 [facility] Comment on above: Performed By: #### C HM7 #### [facility] (DEFAULT) [address] [place] [address] CO2 [Moles/Vol] 26 mmol/L Normal 21-31 [facility] Comment on above: Performed By: #### C HM7 #### [facility] (DEFAULT) [address] [place] [address] Creatinine [Mass/Vol] 0.78 mg/dL Normal 0.50-1.20 [facility] Comment on above: Performed By: #### C HM7 #### U [facility] (DEFAULT) [address] [place] [address] GFR/1.73 sq M.predicted among non-blacks MDRD (S/P/Bld) [Vol rate/Area] 74 mL/min/{1.73_m2} Normal >=60 [facility] Comment on above: Result Comment: Repo rted eGFR is based on the CKD-EPI 2020 equation using creatinine, age, and sex. Performed By: #### C HM7 #### U [facility] (DEFAULT) [address] [place] [address] Glucose [Mass/Vol] 106 mg/dL Normal Nonfastin g : 70-179 mg/dL; Fastin-99 [facility] Comment on above: Performed By: #### C HM7 #### Eliu [facility] (DEFAULT) [address] [place] [address] Osmolality [Osmolality] 293 mosm/kg Normal 278-305 [facility] Comment on above: Performed By: #### C HM7 #### [facility] (DEFAULT) [address] [place] [address] Potassium [Moles/Vol] 4.4 mmol/L Normal 3.5-5.0 [facility] Comment on above: Performed By: #### C HM7 #### U [facility] (DEFAULT) [address] [place] [address] Sodium [Moles/Vol] 138 mmol/L Normal 135-145 [facility] Comment on above: Performed By: #### C HM7 #### U [facility] (DEFAULT) [address] [place] [address] Urea nitrogen [Mass/Vol] 21 mg/dL Normal 7-25 [facility] Comment on above: Performed By: #### C HM7 #### [facility] (DEFAULT) [address] [place] [address] Urea nitrogen/Creatinine [Mass ratio] 27 mg/mg Normal [facility] Comment on above: Performed By: #### C HM7 #### [facility] [facility] (DEFAULT) [address] [place] [address] GLUCOSE POCon 10-21-2024 Glucose [Mass/Vol] 133 mg/dL 70 - 179 mg/dL [facility] POC Sample Type CAPBL [facility] Glucose [Mass/Vol] 115 mg/dL 70 - 179 mg/dL [facility] POC Sample Type CAPBL [facility] MAGNESIUMon 10-21-2024 Magnesium [Mass/Vol] 2.2 mg/dL 1.6 - 2 .6 mg/dL [facility] Magnesium [Mass/Vol] 2.2 mg/dL Normal 1.6-2.6 [facility] Comment on above: Performed By: #### C HM7 #### [facility] (DEFAULT) [address] [place] [address] No Panel Informationon 10-21 Interpretation and review of laboratory results Normal [facility] PT,INR,PTTon 10-21-2024 aPTT Coag (PPP) [Time] 29.1 s [facility] INR Coag (Bld) [Relative time] 1 {INR} 0.9 - 1.1 [facility] Interpretation and review of laboratory results Normal [facility] PT Coag (PPP) [Time] 13.5 s [facility] aPTT Coag (Bld) [Time] 29.1 s Normal 24.0-34.3 [facility] Comment on above: Performed By: #### U R #### [facility] (DEFAULT) [address] [place] [address] INR Coag (PPP) [Relative time] 1.0 {INR} Normal 0.9-1.1 [facility] Comment on above: Performed By: #### U R #### [facility] (DEFAULT) [address] [place] [address] PT Coag (PPP) [Time] 13.5 s Normal 11.9-14.2 [facility] Comment on above: Performed By: #### U R #### [facility] (DEFAULT) [address] [place] [address] CALCIUMon 10-20-2024 Calcium [Mass/Vol] 9.3 mg/dL 8.6 - 10. 5 mg/dL [facility] Calcium [Mass/Vol] 9.3 mg/dL Normal 8.6-10.5 [facility] Comment on above: Performed By: #### C A, CHM7, MGO ####[facility] (DEFAULT)[address] [place] [address] CBC AND ELECTRONIC DIFFon Basophils (Bld) [#/Vol] 0.15 10*3/uL 0.00 - 0.15 K/uL [facility] Basophils/100 WBC (Bld) 1.2 % [facility] Differential cell count method Nom (Bld) Electronic Differential [facility] Eosinophils (Bld) [#/Vol] 1.03 10*3/uL High 0.00 - 0.42 K/uL [facility] Eosinophils/100 WBC (Bld) 8.6 % [facility] Erythrocyte distribution width (RBC) [Ratio] 12.7 % 10.8 - 14.9 % [facility] Hematocrit (Bld) [Volume fraction] 41.7 % 34.9 - 44.3 % [facility] Hemoglobin (Bld) [Mass/Vol] 13.3 g/dL 11.4 - 15.2 g/dL [facility] Immature granulocytes (Bld) [#/Vol] 0.05 10*3/uL NINF - 0.08 K/uL [facility] Immature granulocytes/100 WBC (Bld) 0.4 % [facility] Interpretation and review of laboratory results Abnormal [facility] Lymphocytes (Bld) [#/Vol] 1.19 10*3/uL 1.16 - 3.51 K/uL [facility] Lymphocytes/100 WBC (Bld) 9.9 % [facility] MCH (RBC) [Entitic mass] 30.8 pg 25.9 - 33.9 pg [facility] MCHC (RBC) [Mass/Vol] 31.9 g/dL 31.4 - 35.9 g/dL [facility] MCV (RBC) [Entitic vol] 96.5 fL 79.6 - 97.7 fL [facility] Monocytes (Bld) [#/Vol] 0.75 10*3/uL 0.22 - 0.87 K/uL [facility] Monocytes/100 WBC (Bld) 6.2 % [facility] Neutrophils (Bld) [#/Vol] 8.84 10*3/uL High 1.64 - 7.28 K/uL [facility] Nucleated RBC/100 WBC (Bld) [Ratio] 0 % [facility] Platelet mean volume (Bld) [Entitic vol] 8.7 fL 8.5 - 12.2 fL [facility] Platelets (Bld) [#/Vol] 319 10*3/uL 150 - 393 K/uL [facility] RBC (Bld) [#/Vol] 4.32 10*6/uL [facility] Segmented neutrophils/100 WBC (Bld) 73.7 % [facility] WBC (Bld) [#/Vol] 12.01 10*3/uL High 3.99 - 11.19 K/uL [facility] Basophils (Bld) [#/Vol] 0.15 10*3/uL Normal 0.00-0.15 [facility] Comment on above: Performed By: #### L [id number] ####[facility] (DEFAULT)[address] [place] [address] Basophils/100 WBC (Bld) 1.2 % Normal [facility] Comment on above: Performed By: #### L [id number] ####[facility] (DEFAULT)[address] [place] [address] DIFF STATUS Electronic Differential Normal [facility] Comment on above: Performed By: #### L [id number] ####U [facility] (DEFAULT)[address] [place] [address] Eosinophils (Bld) [#/Vol] 1.03 10*3/uL High 0.00-0.42 [facility] Comment on above: Performed By: #### L [id number] ####[facility] (DEFAULT)[address] [facility] [place] [address] Eosinophils/100 WBC (Bld) 8.6 % Normal [facility] Comment on above: Performed By: #### L [id number] ####[facility] (DEFAULT)[address] [facility] [place] [address] Hematocrit (Bld) [Volume fraction] 41.7 % Normal 34.9-44.3 [facility] Comment on above: Performed By: #### L [id number] ####[facility] (DEFAULT)[address] [facility] [place] [address] Hemoglobin (Bld) [Mass/Vol] 13.3 g/dL Normal 11.4-15.2 [facility] Comment on above: Performed By: #### L AB980 ####[facility] (DEFAULT)[address] [facility] [place] [address] Immature Grans % 0.4 % Normal [facility] Comment on above: Performed By: #### L AB980 ####[facility] (DEFAULT)[address] [facility] [place] [address] Immature Grans Absolute 0.05 K/uL Normal <=0.08 [facility] Comment on above: Performed By: #### L [id number] ####[facility] (DEFAULT)[address] [facility] [place] [address] Lymphocytes (Bld) [#/Vol] 1.19 10*3/uL Normal 1.16-3.51 [facility] Comment on above: Performed By: #### L AB980 ####[facility] (DEFAULT)[address] [facility] [place] [address] Lymphocytes/100 WBC (Bld) 9.9 % Normal [facility] Comment on above: Performed By: #### L [id number] ####[facility] (DEFAULT)[address] [facility] [place] [address] MCV (RBC) [Entitic vol] 96.5 fL Normal 79.6-97.7 [facility] Comment on above: Performed By: #### L AB980 ####[facility] (DEFAULT)[address] [facility] [place] [address] Mean Cell Hgb 30.8 pg Normal 25.9-33.9 [facility] Comment on above: Performed By: #### L [id number] ####[facility] (DEFAULT)[address] [facility] [place] [address] Mean Cell Hgb Conc 31.9 g/dL Normal 31.4-35.9 [facility] Comment on above: Performed By: #### L [id number] ####[facility] (DEFAULT)[address] [facility] [place] [address] Monocytes (Bld) [#/Vol] 0.75 10*3/uL Normal 0.22-0.87 [facility] Comment on above: Performed By: #### L AB980 ####[facility] (DEFAULT)[address] [facility] [place] [address] Monocytes/100 WBC (Bld) 6.2 % Normal [facility] Comment on above: Performed By: #### L [id number] ####[facility] (DEFAULT)[address] [place] [address] Nucleated RBC 0.0 /100 WBC Normal <=0.2 [facility] Comment on above: Performed By: #### L [id number] ####[facility] (DEFAULT)[address] [facility] [place] [address] Platelet mean volume (Bld) [Entitic vol] 8.7 fL Normal 8.5-12.2 [facility] Comment on above: Performed By: #### L [id number] ####[facility] (DEFAULT)[address] [facility] [place] [address] Platelets (Bld) [#/Vol] 319 10*3/uL Normal 150-393 [facility] Comment on above: Performed By: #### L [id number] ####[facility] (DEFAULT)[address] [facility] [place] [address] RBC (Bld) [#/Vol] 4.32 10*6/uL Normal 3.91-5.04 [facility] Comment on above: Performed By: #### L [id number] ####[facility] (DEFAULT)[address] [facility] [place] [address] RBC Distribution 12.7 % Normal 10.8-14.9 [facility] Comment on above: Performed By: #### L AB980 ####[facility] (DEFAULT)[address] [facility] [place] [address] Segs + Bands Auto 73.7 % Normal [facility] Comment on above: Performed By: #### L [id number] ####[facility] (DEFAULT)[address] [facility] [place] [address] Segs + Bands,Absolute Auto 8.84 K/uL High 1.64-7.28 [facility] Comment on above: Performed By: #### L [id number] ####[facility] (DEFAULT)[address] [place] [address] WBC (Bld) [#/Vol] 12.01 10*3/uL High 3.99-11.19 [facility] Comment on above: Performed By: #### L AB980 ####[facility] (DEFAULT)[address] [place] [address] CHEM 7 (LYTES,BUN,CREA,GLUC) on 10-20-2024 Anion gap [Moles/Vol] 15 mmol/L 7 - 17 mmol/L [facility] Chloride [Moles/Vol] 104 mmol/L 98 - 10 8 mmol/L [facility] CO2 [Moles/Vol] 24 mmol/L 21 - 31 mmol/L [facility] Creatinine [Mass/Vol] 0.75 mg/dL 0.50 - 1.20 mg/dL [facility] eGFR, CKD-EPI, Female 77 - PINF [facility] Glucose [Mass/Vol] 132 mg/dL 70 - 179 mg/dL [facility] Osmolality Calc [Osmolality] 293 [facility] Potassium [Moles/Vol] 4.1 mmol/L 3.5 - 5.0 mmol/L [facility] Sodium [Moles/Vol] 139 mmol/L 135 - 145 mmol/L [facility] Urea nitrogen [Mass/Vol] 12 mg/dL 7 - 25 mg/dL [facility] Urea nitrogen/Creatinine [Mass ratio] 16 mg/mg [facility] Anion gap [Moles/Vol] 15 mmol/L Normal 7-17 [facility] Comment on above: Performed By: #### C A, CHM7, MGO ####U [facility] (DEFAULT)[address] [place] [address] Chloride [Moles/Vol] 104 mmol/L Normal 98-108 [facility] Comment on above: Performed By: #### C A, CHM7, MGO ####[facility] (DEFAULT)[address] [place] [address] CO2 [Moles/Vol] 24 mmol/L Normal 21-31 [facility] Comment on above: Performed By: #### FLO Rogers, MGO ####U [facility] (DEFAULT)[address] [facility] [place] [address] Creatinine [Mass/Vol] 0.75 mg/dL Normal 0.50-1.20 [facility] Comment on above: Performed By: #### FLO Rogers, MGO ####U [facility] (DEFAULT)[address] [facility] [place] [address] GFR/1.73 sq M.predicted among non-blacks MDRD (S/P/Bld) [Vol rate/Area] 77 mL/min/{1.73_m2} Normal >=60 [facility] Comment on above: Result Comment: Repo rted eGFR is based on the CKD-EPI 2020 equation using creatinine, age, and sex. Performed By: #### FLO Rogers, MGO ####[facility] (DEFAULT)[address] [facility] [place] [address] Glucose [Mass/Vol] 132 mg/dL Normal Nonfastin g : 70-179 mg/dL; Fastin-99 [facility] Comment on above: Performed By: #### FLO Rogers, MGO ####[facility] (DEFAULT)[address] [place] [address], [place] [address] Osmolality [Osmolality] 293 mosm/kg Normal 278-305 [facility] Comment on above: Performed By: #### FLO Rogers, MGO ####U [facility] (DEFAULT)[address] [facility] [place] [address] Potassium [Moles/Vol] 4.1 mmol/L Normal 3.5-5.0 [facility] Comment on above: Performed By: #### TY Rogers7, MGO ####[facility] (DEFAULT)[address] [facility] [place] [address] Sodium [Moles/Vol] 139 mmol/L Normal 135-145 [facility] Comment on above: Performed By: #### C TY Todd7, MGO ####[facility] (DEFAULT)[address] [facility] [place] [address] Urea nitrogen [Mass/Vol] 12 mg/dL Normal - [facility] Comment on above: Performed By: #### Taylor Todd, TY7, MGO ####[facility] (DEFAULT)[address] [facility] [place] [address] Urea nitrogen/Creatinine [Mass ratio] 16 mg/mg Normal [facility] Comment on above: Performed By: #### TY Rogers7, MGO ####[facility] (DEFAULT)[address] [place] [address] [facility] Telephone (HCSIND) BHARTIBEHZAD ([id number]) 1940 F Date Time Provider Department 10/20/24 MACK BRITO During your visit today, we recorded the following information about you: Mack Brito RN 10/20/2024 9:49 AM Signed [facility] [place]. Your home health patient was admitted to [facility] for CVA as of 10/18/24. All home health services have been placed on HOLD. Thank you. Mack Brito RN [facility] Allergies As of Date: 10/20/2024 Noted Allergy Reaction ADHESIVE TAPE (ROSINS) 08/27/2011 2 - Rash BACTRIM (SULFAMETHOXAZOLE-TRIMETH*0 09/25/2018 2 - Rash MACROBID (NITROFURANTOIN MONOHYD/*09/25/2018 2 - Rash [id number] REDUCTASE INHIBIT*10/06/2014 5 - Intolerance Comments: severe [...] osteoarthritis of right hip [M16.11] 02/27/2017 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 (HCC) [TQA5801] 07/28/2017 07/06/2018 Collagenous colitis [K52.831] 12/21/2018 IBS (irritable bowel syndrome) [K58.9] 12/21/2018 Hiatal hernia [K44.9] 09/11/2020 Fall from standing [W19.XXXA] 06/05/2021 Rotator cuff tear arthropathy, left [M75.102, M*10/29/2021 Paroxysmal atrial fibrillation (HCC) [I48.0] 04/11/2022 Primary hypertension [I10] 12/30/2022 Acute pain of right shoulder [M25.511] 04/16/2023 Severe pain of left shoulder [M25.512] 04/16/2023 Cervicalgia [M54.2] 04/16/2023 Encounter Status:Closed by MACK BRITO on 10/20/24 Normal [facility] GLUCOSE POCon 10-20-2024 Glucose [Mass/Vol] 121 mg/dL 70 - 179 mg/dL [facility]ucose [Mass/Vol] 107 mg/dL 70 - 179 mg/dL [facility] Glucose [Mass/Vol] 133 mg/dL 70 - 179 mg/dL [facility] POC Sample Type CAPBL [facility] Glucose [Mass/Vol] 124 mg/dL 70 - 179 mg/dL [facility] POC Sample Type CAPBL [facility] MAGNESIUMon 10-20-2024 Magnesium [Mass/Vol] 2.5 mg/dL 1.6 - 2 .6 mg/dL [facility] Magnesium [Mass/Vol] 2.5 mg/dL Normal 1.6-2.6 [facility] Comment on above: Performed By: #### C A, CHM7, MGO ####[facility] (DEFAULT)[address] [address] No Panel Informationon 10-20 Interpretation and review of laboratory results Normal [facility] PT,INR,PTTon 10-20-2024 aPTT Coag (PPP) [Time] 28.1 s [facility] INR Coag (Bld) [Relative time] 1.1 {INR} 0.9 - 1.1 [facility] Interpretation and review of laboratory results Abnormal [facility] PT Coag (PPP) [Time] 14.5 s High [facility] aPTT Coag (Bld) [Time] 28.1 s Normal 24.0-34.3 [facility] Comment on above: Performed By: #### U R #### [facility] (DEFAULT) [address] [place] [address] INR Coag (PPP) [Relative time] 1.1 {INR} Normal 0.9-1.1 [facility] Comment on above: Performed By: #### U R #### [facility] (DEFAULT) [address] [place] [address] PT Coag (PPP) [Time] 14.5 s High 11.9-14.2 [facility] Comment on above: Performed By: #### U R #### [facility] (DEFAULT) [address] [place] [address] CALCIUMon 10-19-2024 Calcium [Mass/Vol] 9.0 mg/dL Normal 8.6-10.5 [facility] Comment on above: Performed By: #### T YPEC #### [facility] (DEFAULT) [address] [place] [address] CBC AND ELECTRONIC DIFFon Erythrocyte distribution width (RBC) [Ratio] 12.8 % 10.8 - 14.9 % [facility] Hematocrit (Bld) [Volume fraction] 37.6 % 34.9 - 44.3 % [facility] Hemoglobin (Bld) [Mass/Vol] 12.1 g/dL 11.4 - 15.2 g/dL [facility] Interpretation and review of laboratory results Normal [facility] MCH (RBC) [Entitic mass] 30.9 pg 25.9 - 33.9 pg [facility] MCHC (RBC) [Mass/Vol] 32.2 g/dL 31.4 - 35.9 g/dL [facility] MCV (RBC) [Entitic vol] 96.2 fL 79.6 - 97.7 fL [facility] Platelet mean volume (Bld) [Entitic vol] 8.7 fL 8.5 - 12.2 fL [facility] Platelets (Bld) [#/Vol] 285 10*3/uL 150 - 393 K/uL [facility] RBC (Bld) [#/Vol] 3.91 10*6/uL [facility] WBC (Bld) [#/Vol] 10.12 10*3/uL 3.99 - 11.19 K/uL [facility] Hematocrit (Bld) [Volume fraction] 37.6 % Normal 34.9-44.3 [facility] Comment on above: Performed By: #### L [id number] #### [facility] (DEFAULT) [address] [place] [address] Hemoglobin (Bld) [Mass/Vol] 12.1 g/dL Normal 11.4-15.2 [facility] Comment on above: Performed By: #### L AB980 #### [facility] (DEFAULT) [address] [place] [address] MCV (RBC) [Entitic vol] 96.2 fL Normal 79.6-97.7 [facility] Comment on above: Performed By: #### L AB980 #### [facility] (DEFAULT) [address] [address] Mean Cell Hgb 30.9 pg Normal 25.9-33.9 [facility] Comment on above: Performed By: #### L AB980 #### [facility] (DEFAULT) [address] [address] Mean Cell Hgb Conc 32.2 g/dL Normal 31.4-35.9 [facility] Comment on above: Performed By: #### L AB980 #### [facility] (DEFAULT) [address] [address] Platelet mean volume (Bld) [Entitic vol] 8.7 fL Normal 8.5-12.2 [facility] Comment on above: Performed By: #### L AB980 #### [facility] (DEFAULT) [address] [address] Platelets (Bld) [#/Vol] 285 10*3/uL Normal 150-393 [facility] Comment on above: Performed By: #### L AB980 #### [facility] (DEFAULT) [address] [address] RBC (Bld) [#/Vol] 3.91 10*6/uL Normal 3.91-5.04 [facility] Comment on above: Performed By: #### L AB980 #### [facility] (DEFAULT) [address] [address] RBC Distribution 12.8 % Normal 10.8-14.9 [facility] Comment on above: Performed By: #### L AB980 #### [facility] (DEFAULT) [address] [address] WBC (Bld) [#/Vol] 10.12 10*3/uL Normal 3.99-11.19 [facility] Comment on above: Performed By: #### L AB980 #### U [facility] (DEFAULT) [address] [place] [address] CHEM 7 (LYTES,BUN,CREA,GLUC) on 10-19-2024 Anion gap [Moles/Vol] 14 mmol/L Normal 7-17 [facility] Comment on above: Performed By: #### T YPEC #### U [facility] (DEFAULT) [address] [place] [address] Chloride [Moles/Vol] 104 mmol/L Normal 98-108 [facility] Comment on above: Performed By: #### T YPEC #### [facility] (DEFAULT) [address] [place] [address] CO2 [Moles/Vol] 26 mmol/L Normal 21-31 [facility] Comment on above: Performed By: #### T YPEC #### [facility] (DEFAULT) [address] [place] [address] Creatinine [Mass/Vol] 0.73 mg/dL Normal 0.50-1.20 [facility] Comment on above: Performed By: #### T YPEC #### [facility] (DEFAULT) [address] [place] [address] GFR/1.73 sq M.predicted among non-blacks MDRD (S/P/Bld) [Vol rate/Area] 80 mL/min/{1.73_m2} Normal >=60 [facility] Comment on above: Result Comment: Repo rted eGFR is based on the CKD-EPI 2020 equation using creatinine, age, and sex. Performed By: #### T YPEC #### U [facility] (DEFAULT) [address] [place] [address] Glucose [Mass/Vol] 145 mg/dL Normal Nonfastin g : 70-179 mg/dL; Fastin-99 [facility] Comment on above: Performed By: #### T YPEC #### U [facility] (DEFAULT) [address] [place] [address] Osmolality [Osmolality] 295 mosm/kg Normal 278-305 [facility] Comment on above: Performed By: #### T YPEC #### U [facility] (DEFAULT) [address] [place] [address] Potassium [Moles/Vol] 3.7 mmol/L Normal 3.5-5.0 [facility] Comment on above: Performed By: #### T YPEC #### U [facility] (DEFAULT) [address] [place] [address] Sodium [Moles/Vol] 140 mmol/L Normal 135-145 [facility] Comment on above: Performed By: #### T YPEC #### U [facility] (DEFAULT) [address] [place] [address] Urea nitrogen [Mass/Vol] 12 mg/dL Normal 7-25 [facility] Comment on above: Performed By: #### T YPEC #### U [facility] (DEFAULT) [address] [place] [address] Urea nitrogen/Creatinine [Mass ratio] 16 mg/mg Normal [facility] Comment on above: Performed By: #### T YPEC #### U [facility] (DEFAULT) [address] [place] [address] HEAD WITHOUT CONTRASTon 0 10-19-2024 CT [...] increased edema. No significant mass effect Normal [facility] CT Head WO contraston 2024 RADIOLOGY RADIOLOGY [facility] Radiology Study observation (narrative) [facility] Cardiac echo study Procedure Ordered By: Alfredito Rodriguez on 10-19-2024 Ao ASC index 2.22 cm/m2 [facility] Work Phone: Ao peak jeri 1.77 m/s [facility] Work Phone: Ao SOV index 2.12 cm/m2 [facility] Work Phone: Ao STJ index 1.59 cm/m2 [facility] Work Phone: [phone] Ao VTI 39.74 cm [facility] Work Phone: Ascending aorta 3.39 [facility]: AV LVOT peak gradient 6 mmHg [facility] Work Phone: AV mean gradient 7 [facility] peak gradient 13 mmHG [facility] Work Phone: [phone] AV valve area 2.16 cm2 [facility] [facility] Work Phone: AV Velocity Ratio 0.68 [facility] Work Phone: CORONA (continuity Vmax) 2.04 cm2 [facility] Work Phone: [phone] CORONA (continuity VTI) 2.16 cm2 [facility] Work Phone: [phone] CORONA index (continuity Vmax) 1.33 m/s [facility] Work Phone: [phone] CORONA index (continuity VTI) 1.41 cm2/m2 [facility] Work Phone: [phone] Avg e' pk jeri 0.11 m/s [facility] Work Phone: [phone] Avg E/e' ratio 7.89 [facility] Work Phone: [phone] Body surface area Derived from formula 1.53 m2 [facility] Work Phone: [phone] BP EF 61 % [facility] Work Phone: [phone] DI (Vmax) 0.68 [facility] Work Phone: [phone] DI (VTI) 0.72 m/2 [facility] Work Phone: [phone] E wave decelartion time 194.4 msec [facility] Work Phone: [phone] e' lateral pk jeri 0.1015 m/s [facility] Work Phone: [phone] e' lateral pk jeri 0.1 m/s [facility] Work Phone: [phone] e' septal pk jeri 0.1238 m/[facility]: [phone] e' septal pk jeri 0.12 m/s [facility] Work Phone: [phone] E/A ratio 1.31 [facility] Work Phone: [phone] E/e' lateral ratio 8.67 [facility] Work Phone: [phone] E/e' septal ratio 7.11 [facility] Work Phone: [phone] EF SP 2CH [address] [facility] Work Phone: [phone] EF SP 4CH [address] [facility] Work Phone: [phone] EST RAP 5 mmHg [facility] Work Phone: [phone] EST RVSP 28 mmHg [facility] Work Phone: [phone] 36 % [facility] Work Phone: [phone] IVC ostium 1.12 cm [facility] Work Phone: [phone] IVS 0.6 cm [facility] Work Phone: [phone] LA ESV BP (MOD) 72 [facility]: [phone] LA ESV BP (MOD) index 47 mL/m2 [facility] Work Phone: [phone] LA ESV SP 2CH (MOD) 84 mL [facility] Work Phone: [phone] LA ESV SP 4CH (MOD) 60 mL [facility] Work Phone: [phone] LV EDV BP 96 mL [facility] Work Phone: [phone] LV EDV SP 2CH 88 mL [facility] Work Phone: [phone] LV EDV SP 4CH 97 mL [facility] Work Phone: [phone] LV ESV BP 37 mL [facility] Work Phone: [phone] LV ESV SP 2CH 31 mL [facility] Work Phone: [phone] LV ESV SP 4CH 40 mL [facility] Work Phone: [phone] LV mass 108.07 g [facility] Work Phone: [phone] LV Mass Index 70.6 g/m2 [facility] Work Phone: [phone] LV RWT 0.23 [facility] Work Phone: [phone] LV stroke volume BP (ml) 59 mL [facility] Work Phone: [phone] LV stroke volume index BP 38.56 mL/m2 [facility] Work Phone: [phone] LVIDD 5.35 cm [facility] Work Phone: [phone] LVIDS 3.43 cm [facility] Work Phone: [phone] LVOT area 2.98 cm2 [facility] Work Phone: [phone] LVOT diameter 1.95 cm [facility] Work Phone: [phone] LVOT peak jeri 1.21 m/s [facility] Work Phone: [phone] LVOT peak VTI 28.7 cm [facility] Work Phone: [phone] LVOT stroke volume 86 cm3 [facility] Work Phone: LVOT stroke volume index 55.99 ml/m2 [facility] Work Phone: [phone] MV pk A jeri 0.67 m/s [facility] Work Phone: [phone] MV pk E jeri 0.88 m/s [facility] Work Phone: [phone] [facility] AV VTI RATIO PRE STRESS 0.72 [facility] Work Phone: OSU ECHO LV BIPLANE SYSTOLIC VOLUME INDEX 24.18 mL/m2 [facility] Work Phone: [facility]SU ECHO LV BP DIASTOLIC VOLUME INDEX 62.75 mL/m2 [facility] Work Phone: [phone] PV peak gradient 2 mmHg [facility] Work Phone: [phone] PV PK JERI 0.71 m/s [facility] Work Phone: [phone] PW 0.61 cm [facility] Work Phone: [phone] RA vol index 4CH (MOD) 46.41 mL/m2 [facility] Work Phone: [phone] Right atrium volume 4 chamber method of disks 71 mL [facility] Work Phone: [phone] RV Area diastolic 15.71 cm2 [facility] Work Phone: [phone] RV Area systolic 7.9 cm2 [facility] Work Phone: RV basal diam 3.64 cm [facility] Work Phone: [phone] RV Fractional area change 49.7 % [facility] Work Phone: RV long diam 5.75 cm [facility] Work Phone: [phone] RV mid diam 2.87 cm [facility] Work Phone: RV S' 15.17 cm/s [facility] Work Phone: Sinus 3.24 cm [facility] Work Phone: [phone] STJ 2.44 cm [facility] Work Phone: [phone] Stroke Volume 86 cm/mL [facility] Work Phone: Stroke volume index 56 [facility] Work Phone: TAPSE 2.16 cm [facility] Work Phone: TR pk grad 23 mmHg [facility] Work Phone: [phone] TR pk jeri 2.4 m/s [facility] Work Phone: TV rest pulmonary artery pressure 26.09 mmHg [facility] Work Phone: [facility] Work Phone: Cardiac echo study Procedure on 10-19-2024 [facility] Radiology Study observation (narrative) [facility] ECHOCARDIOGRAMon 10-19-2024 Echocardiography Left ventricular siz [...] from the original result were not included. [facility] Facility [facility] Patient Information Patient Name Behzad Hay [...] Role Read Date Alfredito Rodriguez DO Echo [place] 10/19/2024 Left Heart Measurements LV - Systole [...] mmHg PI (more content not included)... Normal [facility] GLUCOSE POCon 10-19-2024 Glucose [Mass/Vol] 112 mg/dL 70 - 179 mg/dL [facility] Glucose [Mass/Vol] 106 mg/dL 70 - 179 mg/dL [facility] Glucose [Mass/Vol] 124 mg/dL 70 - 179 mg/dL [facility] POC Sample Type CAPBL [facility] Glucose [Mass/Vol] 131 mg/dL 70 - 179 mg/dL [facility] POC Sample Type CAPBL [facility] HEPATIC FUNCTION PANELon Albumin [Mass/Vol] 3.9 g/dL 3.5 - 5.0 g/dL [facility] ALT [Catalytic activity/Vol] 79 U/L High 9 - 48 U/L [facility] Albumin [Mass/Vol] 3.9 g/dL Normal 3.5-5.0 [facility] Comment on above: Performed By: #### T YPEC #### [facility] (DEFAULT) [address] [place] [address] ALP [Catalytic activity/Vol] 171 U/L High 32-126 [facility] Comment on above: Performed By: #### T YPEC #### [facility] (DEFAULT) [address] [place] [address] ALT [Catalytic activity/Vol] 79 U/L High 9-48 [facility] Comment on above: Performed By: #### T YPEC #### [facility] (DEFAULT) [address] [place] [address] AST [Catalytic activity/Vol] 48 U/L High 10-39 [facility] Comment on above: Performed By: #### T YPEC #### [facility] (DEFAULT) [address] [place] [address] Bilirubin [Mass/Vol] 0.4 mg/dL Normal <1.5 [facility] Comment on above: Performed By: #### T YPEC #### [facility] (DEFAULT) [address] [address] Bilirubin Direct < Normal <0.3 [facility] Comment on above: Performed By: #### T YPEC #### [facility] (DEFAULT) [address] [address] Protein [Mass/Vol] 6.7 g/dL Normal 6.4-8.3 [facility] Comment on above: Performed By: #### T YPEC #### [facility] (DEFAULT) [address] [address] IONIZED CALCIUM, SERUMOrdere d By: Mook Albrecht on 10-19-2024 Calcium.ionized (Bld) [Moles/Vol] 4.91 mg/dL 4.60 - 5.30 mg/dL [facility] Interpretation and review of laboratory results Normal [facility] IONIZED CALCIUM, SERUMon ICA 4.91 mg/dL Normal 4.60-5.30 [facility] Comment on above: Performed By: #### U [id number] #### [facility] (DEFAULT) [address] [address] MAGNESIUMon 10-19-2024 Magnesium [Mass/Vol] 1.9 mg/dL Normal 1.6-2.6 [facility] Comment on above: Performed By: #### T YPEC #### [facility] (DEFAULT) [address] [place] [address] MANUAL DIFFon 10-19-2024 Band form neutrophils/100 WBC (Bld) 0 % [facility] Basophils (Bld) [#/Vol] 0 10*3/uL 0.00 - 0.15 K/uL [facility] Basophils/100 WBC (Bld) 0 % [facility] Differential cell count method Nom (Bld) Manual Differential [facility] Eosinophils (Bld) [#/Vol] 2.36 10*3/uL High [facility] Eosinophils/100 WBC (Bld) 23.3 % [facility] Interpretation and review of laboratory results Abnormal [facility] Lymphocytes (Bld) [#/Vol] 1.31 10*3/uL 1.16 - 3.51 K/uL [facility] Lymphocytes/100 WBC (Bld) 12.9 % [facility] Monocytes (Bld) [#/Vol] 0.44 10*3/uL 0.22 - 0.87 K/uL [facility] Monocytes/100 WBC (Bld) 4.3 % [facility] Neutrophils (Bld) [#/Vol] 6.02 10*3/uL 1.64 - 7.28 K/uL [facility] Platelets Estimate (Bld) [#/Vol] Automated platelet count confirmed by manual slide review [facility] RBC morphology finding Nom (Bld) RBC INDICES CONFIRMED WITH MANUAL SLIDE REVIEW [facility] Segmented neutrophils/100 WBC (Bld) 59.5 % [facility] MR Brain WO and W contrast I Von 10-19-2024 RADIOLOGY RADIOLOGY [facility] Radiology Study observation (narrative) [facility] MR Brain WO and W contrast I VOrdered By: Chano Moe on 10-19-2024 [facility] Work Phone: MRI BRAIN STROKE WITH [...] have reviewed and approved this report. Normal [facility] No Panel Informationon 10-19 POC Sample Type CAPBL [facility] PHOSPHATE, INORGANICon 10-19 Phosphorous 2.9 mg/dL Normal 2.2-4.6 [facility] Comment on above: Performed By: #### T YPEC #### [facility] (DEFAULT) [address] [place] [address] PLATELET COUNTon 10-19-2024 Interpretation and review of laboratory results Normal [facility] Platelet mean volume (Bld) [Entitic vol] 9 fL 8.5 - 12.2 fL [facility] Platelets (Bld) [#/Vol] 300 10*3/uL 150 - 393 K/uL [facility] Platelet mean volume (Bld) [Entitic vol] 9.0 fL Normal 8.5-12.2 [facility] Comment on above: Performed By: #### C HM7 #### [facility] (DEFAULT) [address] [place] [address] Platelets (Bld) [#/Vol] 300 10*3/uL Normal 150-393 [facility] Comment on above: Performed By: #### C HM7 #### [facility] (DEFAULT) [address] [place] [address] PT,INR,PTTon 10-19-2024 aPTT Coag (PPP) [Time] 28.4 s [facility] INR Coag (Bld) [Relative time] 1 {INR} 0.9 - 1.1 [facility] Interpretation and review of laboratory results Normal [facility] PT Coag (PPP) [Time] 13.2 s [facility] aPTT Coag (Bld) [Time] 28.4 s Normal 24.0-34.3 [facility] Comment on above: Performed By: #### U [id number] #### [facility] (DEFAULT) [address] [place] [address] INR Coag (PPP) [Relative time] 1.0 {INR} Normal 0.9-1.1 [facility] Comment on above: Performed By: #### U [id number] #### [facility] (DEFAULT) [address] [address] PT Coag (PPP) [Time] 13.2 s Normal 11.9-14.2 [facility] Comment on above: Performed By: #### U [id number] #### [facility] (DEFAULT) [address] [address] SCREEN: MRSA/MSSAOrdered By: Rober Mix on 10-19-2024 Interpretation and review of laboratory results Normal [facility] Methicillin Resistant S. Aureus By Pcr Negative Negative [facility] Staphylococcus Aureus By Pcr Negative Negative [facility] SCREEN: MRSA/MSSAon 10-20-19 Methicillin Resistant S. Aureus By Pcr Negative Normal Negative [facility] Comment on above: Order Comment: Colle ct [...] by the Clinical Microbiology Laboratory at [facility]. It has not been cleared or approved by the FDA.The laboratory is regulated under CLIA as qualified to perform high-complexity testing. This test is used for clinical purposes. It should not be regarded as investigational or for research. Performed By: #### T YPEC #### [facility] (DEFAULT) [address] [address] Staphylococcus Aureus By Pcr Negative Normal Negative [facility] Comment on above: Order Comment: Colle ct [...] by the Clinical Microbiology Laboratory at [facility]. It has not been cleared or approved by the FDA.The laboratory is regulated under CLIA as qualified to perform high-complexity testing. This test is used for clinical purposes. It should not be regarded as investigational or for research. Performed By: #### T YPEC #### [facility] (DEFAULT) [address] [address] 12 Lead EKGon 10-18-2024 12 Lead EKG Normal [facility] ABORH TYPE RECONFIRMATIONon 10-18-2024 ABO/RH(D) TYPE Positive Normal [facility] Comment on above: Performed By: #### T YPEC #### U [facility] (DEFAULT) [address] [address] Absolute lymphocyte countOrd ered By: Mihai Woods on 10-18-2024 Lymphocytes Auto (Unsp spec) [#/Vol] 1.10 10*3/uL 0.83-4.51 [facility] Absolute neutrophil countOrd ered By: Mihai Woods on 10-18-2024 Neutrophils (Bld) [#/Vol] 4.6 10*3/uL 2.0-7.7 [facility] Activated partial thrombopla stin time (aPTT) in platelet poor plasma by coagulation aOrdered By: Mihai Woods on 10-18-2024 aPTT Coag (PPP) [Time] 29.2 s 24.1-36.2 [facility] Anion gap in Serum or Plasma Ordered By: Mihai Woods on 10-18-2024 Anion gap [Moles/Vol] 10 mmol/L 5-15 [facility] Automated lymphocyte count a s percentage of total leukocytesOrdered By: Mihai Woods on 10-18-2024 Lymphocytes/100 WBC Auto (Unsp spec) 13.6 % Low 19-41 [facility] BUN/creatinine ratioOrdered By: Mihai Woods on 10-18-2024 Urea nitrogen/Creatinine [Mass ratio] 17.9 mg/mg 10-20 [facility] Basic Metabolic Profile (BMP )on 10-18-2024 BUN/CRE 17.9 RATIO Normal 10-20 [facility] Comment on above: Performed By: #### L 500.2500, L300.3900, L300.4310, L501.4021, L100.0100 ####[facility] [address] [place], [address] Calcium [Mass/Vol] 9.6 mg/dL Normal 7.6-11.0 [facility] Comment on above: Performed By: #### L 500.2500, L300.3900, L300.4310, L501.4021, L100.0100 ####[facility] [address] [place], [address] Chloride [Moles/Vol] 102 mmol/L Normal 98-108 [facility] Comment on above: Performed By: #### L 500.2500, L300.3900, L300.4310, L501.4021, L100.0100 ####[facility] [address] [place], [address] CO2 [Moles/Vol] 26.6 mmol/L Normal 21.0-32.0 [facility] Comment on above: Performed By: #### L 500.2500, L300.3900, L300.4310, L501.4021, L100.0100 ####[facility] [address] [place], [address] Creatinine [Mass/Vol] 0.95 mg/dL Normal 0.70-1.20 [facility] Comment on above: Performed By: #### L 500.2500, L300.3900, L300.4310, L501.4021, L100.0100 ####[facility] [address] [place], [address] ECRCL 33.62 ml/min Low 50-250 [facility] Comment on above: Performed By: #### L 500.2500, L300.3900, L300.4310, L501.4021, L100.0100 ####[facility] [address] [place], [address] GAP 10 Normal 5-15 [facility] Comment on above: Performed By: #### L 500.2500, L300.3900, L300.4310, L501.4021, L100.0100 ####[facility] [address] [place], [address] GFR/1.73 sq M.predicted among non-blacks MDRD (S/P/Bld) [Vol rate/Area] 58 mL/min/{1.73_m2} Low >60 [facility] Comment on above: Result Comment: mL/m in/1.73m2 CKD-EPI Creatinine Equation (2020) Performed By: #### L 500.2500, L300.3900, L300.4310, L501.4021, L100.0100 ####[facility] [address] [place], [address] Glucose [Mass/Vol] 98 mg/dL Normal 70-99 [facility] Comment on above: Performed By: #### L 500.2500, L300.3900, L300.4310, L501.4021, L100.0100 ####[facility] [address] [place], [address] Potassium [Moles/Vol] 4.6 mmol/L Normal 3.3-5.1 [facility] Comment on above: Performed By: #### L 500.2500, L300.3900, L300.4310, L501.4021, L100.0100 ####[facility] [address] [place], [address] Sodium [Moles/Vol] 139 mmol/L Normal 133-145 [facility] Comment on above: Performed By: #### L 500.2500, L300.3900, L300.4310, L501.4021, L100.0100 ####[facility] [address] [place], [address] Urea nitrogen [Mass/Vol] 17 mg/dL Normal 4-19 [facility] Comment on above: Performed By: #### L 500.2500, L300.3900, L300.4310, L501.4021, L100.0100 ####[facility] [address] [place], [address] Basophil percentageOrdered B y: Mihai Woods on 10-18-2024 Basophils/100 WBC (Bld) 1.9 % High 0-1 [facility] CALCIUMon 10-18-2024 Calcium [Mass/Vol] 8.9 mg/dL Normal 8.6-10.5 [facility] Comment on above: Performed By: #### X M #### [facility] (DEFAULT) [address] [address] CBC AND ELECTRONIC DIFFon Hematocrit (Bld) [Volume fraction] 37.7 % Normal 34.9-44.3 [facility] Comment on above: Performed By: #### A 1CB, [id number] #### [facility] (DEFAULT) [address] [address] Hemoglobin (Bld) [Mass/Vol] 12.0 g/dL Normal 11.4-15.2 [facility] Comment on above: Performed By: #### A 1CB, [id number] #### [facility] (DEFAULT) [address] [address] MCV (RBC) [Entitic vol] 97.7 fL Normal 79.6-97.7 [facility] Comment on above: Performed By: #### A 1CB, [id number] #### [facility] (DEFAULT) [address] [address] Mean Cell Hgb 31.1 pg Normal 25.9-33.9 [facility] Comment on above: Performed By: #### Perez NAVARRO, [id number] #### [facility] (DEFAULT) [address] [place] [address] Mean Cell Hgb Conc 31.8 g/dL Normal 31.4-35.9 [facility] Comment on above: Performed By: #### Perez NAVARRO, [id number] #### U [facility] (DEFAULT) [address] [place] [address] Platelet mean volume (Bld) [Entitic vol] 8.9 fL Normal 8.5-12.2 [facility] Comment on above: Performed By: #### Perez NAVARRO, [id number] #### [facility] (DEFAULT) [address] [place] [address] Platelets (Bld) [#/Vol] 273 10*3/uL Normal 150-393 [facility] Comment on above: Performed By: #### Preez NAVARRO, [id number] #### [facility] (DEFAULT) [address] [place] [address] RBC (Bld) [#/Vol] 3.86 10*6/uL Low 3.91-5.04 [facility] Comment on above: Performed By: #### Perez NAVARRO, [id number] #### [facility] (DEFAULT) [address] [place] [address] RBC Distribution 12.6 % Normal 10.8-14.9 [facility] Comment on above: Performed By: #### Perez 1CB, [id number] #### Eliu [facility] (DEFAULT) [address] [place] [address] WBC (Bld) [#/Vol] 8.14 10*3/uL Normal 3.99-11.19 [facility] Comment on above: Performed By: #### Perez 1CB, [id number] #### U [facility] (DEFAULT) [address] [place] [address] CBC W/Diff, Automatedon 07-0 7-2024 Absolute Lymph 1.10 X10 3/uL Normal 0.83-4.51 [facility] Comment on above: Performed By: #### L 500.2500, L300.3900, L300.4310, L501.4021, L100.0100 ####[facility] [address] [place], [address] Absolute Neut 4.6 X10 3/uL Normal 2.0-7.7 [facility] Comment on above: Performed By: #### L 500.2500, L300.3900, L300.4310, L501.4021, L100.0100 ####[facility] [address] [place], [address] Basophils/100 WBC (Bld) 1.9 % High 0-1 [facility] Comment on above: Performed By: #### L 500.2500, L300.3900, L300.4310, L501.4021, L100.0100 ####[facility] [address] [place], [address] Eosinophils/100 WBC (Bld) 19.1 % High 0-5 [facility] Comment on above: Performed By: #### L 500.2500, L300.3900, L300.4310, L501.4021, L100.0100 ####[facility] [address] [place], [address] Erythrocyte distribution width (RBC) [Ratio] 12.7 % Normal 11.6-14.6 [facility] Comment on above: Performed By: #### L 500.2500, L300.3900, L300.4310, L501.4021, L100.0100 ####[facility] [address] [place], [address] Hematocrit (Bld) [Volume fraction] 40.2 % Normal 37-47 [facility] Comment on above: Performed By: #### L 500.2500, L300.3900, L300.4310, L501.4021, L100.0100 ####[facility] [address] [place], [address] Hemoglobin (Bld) [Mass/Vol] 12.8 g/dL Normal 12.0-15.0 [facility] Comment on above: Performed By: #### L 500.2500, L300.3900, L300.4310, L501.4021, L100.0100 ####[facility] [address] [place], [address] IG% 0.200 Normal 0.0-0.9 [facility] Comment on above: Result Comment: IG% - Immature Granulocytes (promyelocytes, myelocytes andmetamyelocytes) > 1% indicates that a LEFT SHIFT is Present. Performed By: #### L 500.2500, L300.3900, L300.4310, L501.4021, L100.0100 ####[facility] [address] [place], [address] Lymphocytes/100 WBC (Bld) 13.6 % Low 19-41 [facility] Comment on above: Performed By: #### L 500.2500, L300.3900, L300.4310, L501.4021, L100.0100 ####[facility] [address] [place], [address] MCH (RBC) [Entitic mass] 31.1 pg Normal 27.0-32.0 [facility] Comment on above: Performed By: #### L 500.2500, L300.3900, L300.4310, L501.4021, L100.0100 ####[facility] [address] [place], [address] MCHC (RBC) [Mass/Vol] 31.8 g/dL Low 32-36 [facility] Comment on above: Performed By: #### L 500.2500, L300.3900, L300.4310, L501.4021, L100.0100 ####[facility] [address] [place], [address] MCV (RBC) [Entitic vol] 97.8 fL Normal 81-99 [facility] Comment on above: Performed By: #### L 500.2500, L300.3900, L300.4310, L501.4021, L100.0100 ####[facility] [address] [place], [address] Monocytes/100 WBC (Bld) 7.9 % Normal 0-10 [facility] Comment on above: Performed By: #### L 500.2500, L300.3900, L300.4310, L501.4021, L100.0100 ####[facility] [address] [place], [address] Neutrophils/100 WBC (Bld) 57.3 % Normal 47-70 [facility] Comment on above: Performed By: #### L 500.2500, L300.3900, L300.4310, L501.4021, L100.0100 ####[facility] [address] [place], [address] Nucleated RBC (Bld) [#/Vol] 0 10*3/uL Normal 0-5 [facility] Comment on above: Performed By: #### L 500.2500, L300.3900, L300.4310, L501.4021, L100.0100 ####[facility] [address] [place], [address] Platelet mean volume (Bld) [Entitic vol] 9.5 fL Normal 6.2-12.0 [facility] Comment on above: Performed By: #### L 500.2500, L300.3900, L300.4310, L501.4021, L100.0100 ####[facility] [address] [place], [address] Platelets (Bld) [#/Vol] 310 10*3/uL Normal 150-450 [facility] Comment on above: Performed By: #### L 500.2500, L300.3900, L300.4310, L501.4021, L100.0100 ####[facility] [address] [place], [address] RBC (Bld) [#/Vol] 4.11 10*6/uL Low 4.2-5.4 [facility] Comment on above: Performed By: #### L 500.2500, L300.3900, L300.4310, L501.4021, L100.0100 ####[facility] [address] [place], [address] RDW SD 45.4 fl High 35.1-43.9 [facility] Comment on above: Performed By: #### L 500.2500, L300.3900, L300.4310, L501.4021, L100.0100 ####[facility] [address] [place], [address] WBC (Bld) [#/Vol] 8.1 10*3/uL Normal 4.4-11.0 [facility] Comment on above: Performed By: #### L 500.2500, L300.3900, L300.4310, L501.4021, L100.0100 ####[facility] [address] [place], [address] CHM 7 - EDon 10-18-2024 Anion gap [Moles/Vol] 9 mmol/L Normal 7-17 [facility] Comment on above: Performed By: #### X M #### [facility] (DEFAULT) [address] [place] [address] Chloride [Moles/Vol] 105 mmol/L Normal 98-108 [facility] Comment on above: Performed By: #### X M #### [facility] (DEFAULT) [address] [place] [address] CO2 [Moles/Vol] 27 mmol/L Normal 21-31 [facility] Comment on above: Performed By: #### X M #### [facility] (DEFAULT) [address] [place] [address] Creatinine [Mass/Vol] 0.86 mg/dL Normal 0.50-1.20 [facility] Comment on above: Performed By: #### X M #### [facility] (DEFAULT) [address] [place] [address] GFR/1.73 sq M.predicted among non-blacks MDRD (S/P/Bld) [Vol rate/Area] 66 mL/min/{1.73_m2} Normal >=60 [facility] Comment on above: Result Comment: Repo rted eGFR is based on the CKD-EPI 2020 equation using creatinine, age, and sex. Performed By: #### X M #### [facility] (DEFAULT) [address] [place] [address] Glucose [Mass/Vol] 114 mg/dL Normal Nonfastin g : 70-179 mg/dL; Fastin-99 [facility] Comment on above: Performed By: #### X M #### [facility] (DEFAULT) [address] [place] [address] Osmolality [Osmolality] 290 mosm/kg Normal 278-305 [facility] Comment on above: Performed By: #### X M #### [facility] (DEFAULT) [address] [place] [address] Potassium [Moles/Vol] 4.2 mmol/L Normal 3.5-5.0 [facility] Comment on above: Performed By: #### X M #### [facility] (DEFAULT) [address] [place] [address] Sodium [Moles/Vol] 137 mmol/L Normal 135-145 [facility] Comment on above: Performed By: #### X M #### [facility] (DEFAULT) [address] [place] [address] Urea nitrogen [Mass/Vol] 16 mg/dL Normal - [facility] Comment on above: Performed By: #### X M #### [facility] (DEFAULT) [address] [place] [address] Urea nitrogen/Creatinine [Mass ratio] 19 mg/mg Normal [facility] Comment on above: Performed By: #### X M #### 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 Normal [facility] CT STROKE HEAD-STROKE ALERT ONLYon 10-18-2024 CT [...] have reviewed and approved this report. Normal [facility] Carbon dioxide, total [Moles /volume] in Central venous bloodOrdered By: Mihai Woods on 10-18-2024 CO2 [Moles/Vol] 26.6 mmol/L 21.0-32.0 [facility] Chest 1 Viewon 10-18-2024 Chest 1 View Normal [facility] Chloride assayOrdered By: Timmy Woods on 10-18-2024 Chloride [Moles/Vol] 102 mmol/L 98-108 [facility] Emergency Department Summary on 10-18-2024 Emergency Department Summary Normal [facility] Eosinophil percentageOrdered By: Mihai Woods on 10-18-2024 Eosinophils/100 WBC (Bld) 19.1 % High 0-5 [facility] Erythrocyte distribution wid th ratioOrdered By: Mihai Woods on 10-18-2024 Erythrocyte distribution width (RBC) [Ratio] 12.7 % 11.6-14.6 [facility] Erythrocyte distribution wid th standard deviationOrdered By: Mihai Woods on 10-18-2024 Erythrocyte distribution width (RBC) [Ratio] 45.4 fl High 35.1-43.9 [facility] Glomerular filtration rate ( GFR) estimation/1.73 sq m using serum, plasma, or whole bOrdered By: Mihai Woods on 10-18-2024 GFR/1.73 sq M.predicted among non-blacks MDRD (S/P/Bld) [Vol rate/Area] 58 mL/min/{1.73_m2} Low >60 [facility] Comment on above: mL/min/1.73m2 CKD-EP I Creatinine Equation (2020) HEMOGLOBIN A1Con 10-18-2024 Glucose [Mass/Vol] 108 mg/dL Normal [facility] Comment on above: Performed By: #### A 1CB, [id number] #### [facility] (DEFAULT) [address] [address] Hemoglobin A1C HPLC 5.4 % Normal 4.7-5.6 [facility] Comment on above: Performed By: #### A 1CB, [id number] #### [facility] (DEFAULT) [address] [place] [address] HEPATIC FUNCTION PANELon Albumin [Mass/Vol] 3.8 g/dL Normal 3.5-5.0 [facility] Comment on above: Performed By: #### X M #### [facility] (DEFAULT) [address] [place] [address] ALP [Catalytic activity/Vol] 184 U/L High 32-126 [facility] Comment on above: Performed By: #### X M #### [facility] (DEFAULT) [address] [place] [address] ALT [Catalytic activity/Vol] 84 U/L High 9-48 [facility] Comment on above: Performed By: #### X M #### [facility] (DEFAULT) [address] [place] [address] AST [Catalytic activity/Vol] 58 U/L High 10-39 [facility] Comment on above: Performed By: #### X M #### [facility] (DEFAULT) [address] [place] [address] Bilirubin [Mass/Vol] 0.4 mg/dL Normal <1.5 [facility] Comment on above: Performed By: #### X M #### [facility] (DEFAULT) [address] [place] [address] Bilirubin.indirect [Mass/Vol] 0.1 mg/dL Normal <0.3 [facility] Comment on above: Performed By: #### X M #### [facility] (DEFAULT) [address] [place] [address] Protein [Mass/Vol] 6.4 g/dL Normal 6.4-8.3 [facility] Comment on above: Performed By: #### X M #### [facility] (DEFAULT) [address] [place] [address] HIGH SENSITIVITY TROPONIN I - SINGLE ORDERon 10-18-2024 hs-Troponin I 8 ng/L Normal <34 [facility] Comment on above: Order Comment: Acute Coronary Syndrome (ACS): Initial Evaluation and Management:[email or web address]/Guide [email or web address]%20Syndrome.[email or web address] Performed By: #### X M #### [facility] (DEFAULT) [address] [place] [address] Hematocrit Auto (Bld) [Volum e fraction]Ordered By: Mihai Woods on 10-18-2024 Hematocrit (Bld) [Volume fraction] 40.2 % 37-47 [facility] Hemoglobin measurementOrdere d By: Mihai Woods on 10-18-2024 Hemoglobin (Bld) [Mass/Vol] 12.8 g/dL 12.0-15.0 [facility] Immature granulocytes/100 WB C Auto (Bld)Ordered By: Mihai Woods on 10-18-2024 Immature granulocytes/100 WBC (Bld) 0.200 % 0.0-0.9 [facility] Comment on above: IG% - Immature Granu locytes (promyelocytes, myelocytes and metamyelocytes) > 1% indicates that a LEFT SHIFT is Present. International normalized rat io (INR) calculationOrdered By: Mihai Woods on 10-18-2024 INR Coag (Bld) [Relative time] 1.2 {INR} [facility] L499.0042on 10-18-2024 Trop T High Sen Normal <=14 [facility] Comment on above: Result Comment: NO S PECIMEN COLLECTED. PATIENT DEPARTED ED. Performed By: #### L 499.0042 ####[facility] [address] [place], [address] L499.0043on 10-18-2024 Trop T High Sen Normal <=14 [facility] Comment on above: Result Comment: Canc elled via OM: Order cancelled - Patient discharged Performed By: #### L 499.0043 ####[facility] [address] [place], [address] L501.4021on 10-18-2024 Trop T High Sen 26 ng/L High <=14 [facility] Comment on above: Performed By: #### L 500.2500, L300.3900, L300.4310, L501.4021, L100.0100 ####[facility] [address] [place], [address] LIPID PANEL WITH REFLEX TO M TOMURED LDLon 10-18-2024 Calculated LDL Cholesterol 73 mg/dL Normal 0-99 [facility] Comment on above: Result Comment: [<10 0 mg/dL: Optimal] [100-129 mg/dL: Near Optimal] [130-159 mg/dL: Borderline High] [160-189 mg/dL: High] [>189 mg/dL: Very High] Performed By: #### U R #### [facility] (DEFAULT) [address] [place] [address] Cholesterol [Mass/Vol] 140 mg/dL Normal <200 [facility] Comment on above: Result Comment: [<20 0 mg/dL: Desirable] [200-239 mg/dL: Borderline High] [>239 mg/dL: High] Performed By: #### U R #### [facility] (DEFAULT) [address] [place] [address] Cholesterol in HDL [Mass/Vol] 46 mg/dL Normal >=40 [facility] Comment on above: Result Comment: [<40 mg/dL: Low (High Risk)] [>59 mg/dL: High (Low Risk)] Performed By: #### U R #### [facility] (DEFAULT) [address] [place] [address] Non HDL Cholesterol 94 mg/dL Normal <130 [facility] Comment on above: Performed By: #### U R #### [facility] (DEFAULT) [address] [place] [address] Total Cholesterol/HDL Ratio 3.0 Normal <4.5 [facility] Comment on above: Performed By: #### U R #### [facility] (DEFAULT) [address] [place] [address] Triglyceride [Mass/Vol] 106 mg/dL Normal <150 [facility] Comment on above: Result Comment: [<15 0 mg/dL: Desirable] [150-199 mg/dL: Borderline] [200-499 mg/dL: High] [>500 mg/dL: Very High] Performed By: #### U R #### [facility] (DEFAULT) [address] [address] MAGNESIUMon 10-18-2024 Magnesium [Mass/Vol] 2.0 mg/dL Normal 1.6-2.6 [facility] Comment on above: Performed By: #### X M #### [facility] (DEFAULT) [address] [address] MCV (mean corpuscular volume ) determinationOrdered By: Mihai Woods on 10-18-2024 MCV (RBC) [Entitic vol] 97.8 fL 81-99 [facility] Mean corpuscular hemoglobin (MCH) determinationOrdered By: Mihai Woods on 10-18-2024 MCH (RBC) [Entitic mass] 31.1 pg 27.0-32.0 [facility] Mean corpuscular hemoglobin concentration (MCHC) determinationOrdered By: Mihai Woods on 10-18-2024 MCHC (RBC) [Mass/Vol] 31.8 g/dL Low 32-36 [facility] Mean platelet volume determi nationOrdered By: Mihai Woods on 10-18-2024 Platelet mean volume (Bld) [Entitic vol] 9.5 fL 6.2-12.0 [facility] Monocyte percentageOrdered B y: Mihai Woods on 10-18-2024 Monocytes/100 WBC (Bld) 7.9 % 0-10 [facility] Neutrophil percentageOrdered By: Mihai Woods on 10-18-2024 Neutrophils/100 WBC (Bld) 57.3 % 47-70 [facility] Nucleated red blood cell per centageOrdered By: Mihai Woods on 10-18-2024 Nucleated RBC/100 WBC (Bld) [Ratio] 0 % 0-5 [facility] PHOSPHATE, INORGANICon 10-18 Phosphorous 3.6 mg/dL Normal 2.2-4.6 [facility] Comment on above: Performed By: #### U R #### [facility] (DEFAULT) [address] [address] PTINR-STROKEon 10-18-2024 INR Coag (PPP) [Relative time] 1.1 {INR} Normal 0.9-1.1 [facility] Comment on above: Performed By: #### X M #### [facility] (DEFAULT) [address] [address] PT Coag (PPP) [Time] 13.9 s Normal 11.9-14.2 [facility] Comment on above: Performed By: #### X M #### [facility] (DEFAULT) [address] [place] [address] PTTon 10-18-2024 aPTT Coag (Bld) [Time] 31.9 s Normal 24.0-34.3 [facility] Comment on above: Performed By: #### X M #### [facility] (DEFAULT) [address] [place] [address] Partial Thromboplast Timeon 10-18-2024 aPTT Coag (Bld) [Time] 29.2 s Normal 24.1-36.2 [facility] Comment on above: Performed By: #### L 500.2500, L300.3900, L300.4310, L501.4021, L100.0100 ####[facility] [address] [place], [address] Platelet countOrdered By: Timmy Woods on 10-18-2024 Platelets (Bld) [#/Vol] 310 10*3/uL 150-450 [facility] Potassium measurement (mass/ volume)Ordered By: Mihai Woods on 10-18-2024 Potassium (Unsp spec) [Mass/Vol] 4.6 mmol/L 3.3-5.1 [facility] Prothrombin Time w/INRon INR Coag (PPP) [Relative time] 1.2 {INR} Normal [facility] Comment on above: Performed By: #### L 500.2500, L300.3900, L300.4310, L501.4021, L100.0100 ####[facility] [address] [place], [address] PT Coag (PPP) [Time] 15.4 s High 11.7-14.9 [facility] Comment on above: Performed By: #### L 500.2500, L300.3900, L300.4310, L501.4021, L100.0100 ####[facility] [address] [place], [address] Prothrombin timeOrdered By: Mihai Woods on 10-18-2024 PT Coag (PPP) [Time] 15.4 s High 11.7-14.9 [facility] RBC Auto (Bld) [#/Vol]Ordere d By: Mihai Woods on 10-18-2024 RBC (Bld) [#/Vol] 4.11 10*6/uL Low 4.2-5.4 [facility] STROKE Brain/Head without Co nton 10-18-2024 STROKE Brain/Head without Cont Normal [facility] STROKE CTA Head AND Neck W/C onon 10-18-2024 STROKE CTA Head AND Neck W/Con Normal [facility] Serum creatinine measurement (mass/volume)Ordered By: Mihai Woods on 10-18-2024 Creatinine [Mass/Vol] 0.95 mg/dL 0.70-1.20 [facility] Serum glucose measurement (m ass/volume)Ordered By: Mihai Woods on 10-18-2024 Glucose [Mass/Vol] 98 mg/dL 70-99 [facility] Serum or plasma calcium camilo urement (mass/volume)Ordered By: Mihai Woods on 10-18-2024 Calcium [Mass/Vol] 9.6 mg/dL 7.6-11.0 [facility] Serum or plasma urea nitroge n measurement (mass/volume)Ordered By: Mihai Woods on 10-18-2024 Urea nitrogen [Mass/Vol] 17 mg/dL 4-19 [facility] Sodium levelOrdered By: Hilda Woods on 10-18-2024 Sodium [Moles/Vol] 139 mmol/L 133-145 [facility] TSH W/FT4 REFLEXon TSH 0.786 uIU/mL Normal 0.550-4.78 0 [facility] Comment on above: Performed By: #### U R #### [facility] (DEFAULT) [address] [place] [address] TYPE AND SCREENon 10-18-2024 ABO/RH(D) TYPE Positive Normal [facility] Comment on above: Performed By: #### X M #### [facility] (DEFAULT) [address] [place] [address] Specimen Expiration 10/21/2024 23:59 Normal [facility] Comment on above: Performed By: #### X M #### [facility] (DEFAULT) [address] [place] [address] Troponin T.cardiac [Mass/vol ume] in Serum or Plasma by High sensitivity methodOrdered By: Mihai Woods on 10-18-2024 Troponin T.cardiac High sensitivity method [Mass/Vol] 26 ng/L High <14 [facility] URINALYSIS REFLEX TO CULTURE PERFORMABLEon 10-18-2024 Appearance (U) Clear Normal Clear [facility] Comment on above: Order Comment: For i ndwelling catheters, specimen collection is acceptable on catheter day 1 and 2 only. ? Performed By: #### A 1CB, [id number] #### [facility] (DEFAULT) [address] [place] [address] Bacteria ABSENT Normal ABSENT [facility] Comment on above: Order Comment: For i ndwelling catheters, specimen collection is acceptable on catheter day 1 and 2 only. ? Performed By: #### A 1CB, [id number] #### [facility] (DEFAULT) [address] [place] [address] Blood Urine Trace Abnormal Negative [facility] Comment on above: Order Comment: For i ndwelling catheters, specimen collection is acceptable on catheter day 1 and 2 only. ? Performed By: #### A 1CB, [id number] #### [facility] (DEFAULT) [address] [place] [address] Color (U) Yellow Normal Yellow [facility] Comment on above: Order Comment: For i ndwelling catheters, specimen collection is acceptable on catheter day 1 and 2 only. ? Performed By: #### A 1CB, [id number] #### [facility] (DEFAULT) [address] [place] [address] Glucose Ql (U) Negative Normal Negative [facility] Comment on above: Order Comment: For i ndwelling catheters, specimen collection is acceptable on catheter day 1 and 2 only. ? Performed By: #### A 1CB, [id number] #### [facility] (DEFAULT) [address] [place] [address] Ketones Ql (U) Negative Normal Negative [facility] Comment on above: Order Comment: For i ndwelling catheters, specimen collection is acceptable on catheter day 1 and 2 only. ? Performed By: #### A 1CB, [id number] #### [facility] (DEFAULT) [address] [place] [address] Leukocyte esterase Test strip Ql (U) Trace Abnormal Negative [facility] Comment on above: Order Comment: For i ndwelling catheters, specimen collection is acceptable on catheter day 1 and 2 only. ? Performed By: #### A 1CB, [id number] #### [facility] (DEFAULT) [address] [place] [address] Nitrites Urine Negative Normal Negative [facility] Comment on above: Order Comment: For i ndwelling catheters, specimen collection is acceptable on catheter day 1 and 2 only. ? Performed By: #### A 1CB, [id number] #### [facility] (DEFAULT) [address] [place] [address] pH (U) 7.5 [pH] Abnormal 5.0-7.0 [facility] Comment on above: Order Comment: For i ndwelling catheters, specimen collection is acceptable on catheter day 1 and 2 only. ? Performed By: #### A 1CB, [id number] #### [facility] (DEFAULT) [address] [place] [address] Protein Urine Negative Normal Negative [facility] [facility] Comment on above: Order Comment: For i ndwelling catheters, specimen collection is acceptable on catheter day 1 and 2 only. ? Performed By: #### A 1CB, [id number] #### [facility] (DEFAULT) [address] [place] [address] RBC Urine 6-10 Abnormal 0-2 [facility] Comment on above: Order Comment: For i ndwelling catheters, specimen collection is acceptable on catheter day 1 and 2 only. ? Performed By: #### A 1CB, [id number] #### [facility] (DEFAULT) [address] [place] [address] 44022 Specific Inkom Urine 1.024 Normal 1.001-1.03 5 [facility] Comment on above: Order Comment: For i ndwelling catheters, specimen collection is acceptable on catheter day 1 and 2 only. ? Performed By: #### A 1CB, [id number] #### [facility] (DEFAULT) [address] [place] [address] 64419 Squamous/Epithelial Cells, Urine 0-2/hpf Normal 0-2/hpf, 3-5/hpf = 1+ [facility] Comment on above: Order Comment: For i ndwelling catheters, specimen collection is acceptable on catheter day 1 and 2 only. ? Performed By: #### A 1CB, [id number] #### [facility] (DEFAULT) [address] [place] [address] 51383 Urobilinogen Urine 0.2 E.U./dL Normal 0.2 E.U/dL, 1.0 E.U/dL [facility] Comment on above: Order Comment: For i ndwelling catheters, specimen collection is acceptable on catheter day 1 and 2 only. ? Performed By: #### A 1CB, [id number] #### [facility] (DEFAULT) [address] [place] [address] 77862 WBC Urine 0 - 5 Normal 0 - 5 [facility] Comment on above: Order Comment: For i ndwelling catheters, specimen collection is acceptable on catheter day 1 and 2 only. ? Performed By: #### A 1CB, [id number] #### [facility] (DEFAULT) [address] [place] [address] 46079 White blood cell (WBC) count Ordered By: Mihai Woods on 10-18-2024 WBC (Bld) [#/Vol] 8.1 10*3/uL 4.4-11.0 [facility] XR ABDOMEN 1 VIEW PORTABLEon 10-18-2024 XR [...] Dobbhoff projects over the distal stomach. Normal [facility] Bacteria Ur Culton 5 Bacteria identified Cx Nom (U) CULTURE, URINE: Mixed microbiota, including predominantly: ORGANISM ID: 1 10,000 -<50,000 CFU/ml Aerococcus urinae No susceptibility testing done. Normal [facility] Comment on above: Performed By: #### 6 30-4 ####[facility] [id number] [address] CNOVon 10-12-2024 CNOV Office Visit (FAMPWS ) BEHZAD HAY ([id number]) 1940 F Date Time Provider Department 10/12/24 11:20 AM TASHA DEUTSCH FAMPWS During your visit today, we recorded the following information about you: Temperature Pulse Blood pressure Weight 97.6 degrees 60/minute 138/82 53.5 kg Tasha Deutsch APRN.PROPERTY ADJUSTER 10/12/2024 12:16 PM Signed This is a [...] hernia History of esophagogastroduodenoscopy (EGD) 09/23/2014 [facility]: All normal HTN (hypertension) Hyperlipidemia, mixed [...] Bactrim [Sulfamethoxazole-Trimethop rim], Macrobid [Nitrofurantoin Monohyd/M-Cryst], and Lcezykt-Lnv-Hmv Reductase Inhibitors MEDICATIONS Current Outpatient Medications Medication [...] Brother age 76 other (CVA) Brother other ([employer] shunt) Brother Hypertension Sister Diabetes Sister age 66 (sepsis) Social History Tobacco Use Smoking status: Never Smokeless t (more content not included)... Normal [facility] Cardiology Visit Reporton Cardiology Visit Report Normal [facility] UA DIP, URINE (POC)on 2024 BILIRUBIN UA (POCT) Negative Negative [facility] CLARITY UA (POCT) Clear [facility] COLOR UA (POCT) Yellow [facility] GLUCOSE UA (POCT) Negative Negative mg/dL [facility] Hemoglobin Ql (U) Trace-intact Abnormal Negative [facility] Interpretation and review of laboratory results Abnormal [facility] KETONE UA (POCT) Negative Negative mg/dL [facility] LEUKOCYTES UA (POCT) Negative Negative [facility] NITRITE UA (POCT) Negative Negative [facility] PH UA (POCT) 6 4.5 - 8.0 [facility] Protein Ql (U) Negative Negative mg/dL [facility] SPECIFIC GRAVITY UA (POCT) 1.01 1.005 - 1.030 [facility] UROBILINOGEN UA (POCT) 0.2 Normal E.U./dL [facility] Location:[address], [place], [place], [id number] [place] [address] POINT OF CARE [facility] 10-06-2024 CNPN Telephone (HCSIND) BHARTIBEHZAD Lugo ([id number]) 1940 F Date Time Provider Department 10/06/24 [facility] During your visit today, we recorded the following information about you: Moni Rodríguez, DUSTIN-FULL SERVICE SUPERVISOR 10/06/2024 12:10 AM Signed This patient would benefit from continued speech therapy in the outpatient setting upon discharge from home care. I am requesting orders to be placed for outpatient speech therapy services to evaluate and treat for cognitive linguistic deficits and aphasia. The patient's daughter requested the orders be placed so that she can find them in [facility]. 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] Order(s):CONSULT TO SPEECH THERAPY [0803466] Order #: [id number]: 1 FUTURE Prescriptions as of 10/07/2024 - [...] osteoarthritis of right hip [M16.11] 02/27/2017 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 (HCC) [ELU4635] 07/28/2017 07/06/2018 Collagenous colitis [K52.831] 12/21/2018 IBS (irritable bowel syndrome) [K58.9] 12/21/2018 Hiatal hernia [K44.9] 09/11/2020 Fall from standing [W19.XXXA] 06/05/2021 Rotator cuff tear arthropathy, left [M75.102, M*10/29/2021 Paroxysmal atrial fibrillation (HCC) [I48.0] 04/11/2022 Primary hypertension [I10] 12/30/2022 Acute pain of right shoulder [M25.511] 04/16/2023 Severe pain of left shoulder [M25.512] 04/16/2023 Cervicalgia [M54.2] 04/16/2023 Encounter Status:Closed by WINSOME BUTLER on 10/07/24 Normal [facility] 25(OH)D3 [facility] 25-hydroxyvitamin D3 [Mass/Vol] 46.6 ng/mL Normal 31.0-80.0 [facility] Comment on above: Order Comment: Speci men Type: BLOOD SPECIMENOrdering Facility: [facility] Address: [address] [place] [address] [place] [address] Performed By: #### 1 989-3 ####[facility] [id number] [place] [address] [place] Basic metabolic 2000 panelon 10-04-2024 Anion gap [Moles/Vol] 9 mmol/L Normal 8-15 [facility] Comment on above: Order Comment: Speci men Type: BLOOD SPECIMENOrdering Facility: [facility] Address: [address] [place], [place] [address] Performed By: #### 5 0190-8, 11196-6, 2131-12, 2275-07 ####[facility] [id number] [address] [address] [place] Calcium [Mass/Vol] 10.5 mg/dL High 8.5-10.2 [facility] Comment on above: Order Comment: Speci men Type: BLOOD SPECIMENOrdering Facility: [facility] Address: [address] [place] [address] Performed By: #### 5 0190-8, 77265-2, 2131-12, 2275-07 ####[facility] [id number] [place] [id number] [place] Chloride [Moles/Vol] 99 mmol/L Normal 98-107 [facility] Comment on above: Order Comment: Speci men Type: BLOOD SPECIMENOrdering Facility: [facility] Address: [address] [place] [address] Performed By: #### 5 0190-8, 82896-6, 2131-12, 2275-07 ####[facility] [id number] [address] [address] [place] CO2 [Moles/Vol] 26 mmol/L Normal 22-30 [facility] Comment on above: Order Comment: Speci men Type: BLOOD SPECIMENOrdering Facility: [facility] Address: [address] [place], [place] [address] Performed By: #### 5 0190-8, 41689-9, 2131-12, 2275-07 ####[facility] [id number] [facility] [address] [address] [place] Creatinine [Mass/Vol] 0.84 mg/dL Normal 0.58-0.96 [facility] Comment on above: Order Comment: Cheri jimenez Type: BLOOD SPECIMENOrdering Facility: [facility] Address: [address] [place] [address] Performed By: #### 5 0190-8, 83927-4, 2131-12, 2275-07 ####[facility] [id number] [place] [id number] [place] Creatinine and Glomerular filtration rate.predicted panel (S/P/Bld) 68 mL/min/1.73m??? Normal >=60 [facility] Comment on above: Order Comment: Cheri jimenez Type: BLOOD SPECIMENOrdering Facility: [facility] Address: [address] [place] [address] Result Comment: Pattie mated Glomerular Filtration Rate [...] actual GFR. Performed By: #### 5 0190-8, 70104-9, 2131-12, 2275-07 ####[facility] [id number] [address] [address] [place] Glucose [Mass/Vol] 87 mg/dL Normal 74-99 [facility] Comment on above: Order Comment: Cheri jimenez Type: BLOOD SPECIMENOrdering Facility: [facility] Address: [address] [place] [address] Result Comment: The [place] Diabetes Association (ADA) provides guidance for cutoff [...] Standards of Medical Care in Diabetes 2016, [place] [employer]. Diabetes Care. 2016.39(Suppl 1). Performed By: #### 5 0190-8, 84470-7, 2131-12, 2275-07 ####[facility] [id number] [address] [address] [place] Potassium [Moles/Vol] 5.1 mmol/L Normal 3.7-5.1 [facility] Comment on above: Order Comment: Speci men Type: BLOOD SPECIMENOrdering Facility: [facility] Address: [address] [place] [address] Performed By: #### 5 0190-8, 59178-8, 2131-12, 2275-07 ####[facility] LABIA [id number] [place] [address] [place] Sodium [Moles/Vol] 134 mmol/L Low 136-144 [facility] Comment on above: Order Comment: Speci men Type: BLOOD SPECIMENOrdering Facility: [facility] Address: [address] [place] [address] Performed By: #### 5 0190-8, 41563-0, 2131-12, 2275-07 ####[facility] LABIA [id number] [place] [id number] [place] Urea nitrogen [Mass/Vol] 17 mg/dL Normal 7-21 [facility] Comment on above: Order Comment: Speci men Type: BLOOD SPECIMENOrdering Facility: [facility] Address: [address] [place] [address] Performed By: #### 5 0190-8, 66083-6, 2131-12, 2275-07 ####[facility] [id number] [address] [address] [place] CBC W Auto Differential pane l (Bld)on 10-04-2024 Basophils (Bld) [#/Vol] 0.1 10*3/uL [facility] Basophils/100 WBC (Bld) 1.7 % [facility] Differential cell count method Nom (Bld) Auto [facility] Eosinophils (Bld) [#/Vol] 0.25 10*3/uL [facility] Eosinophils/100 WBC (Bld) 4.1 % [facility] Erythrocyte distribution width (RBC) [Ratio] 12.7 % 11.5 - 15.0 % [facility] Hematocrit (Bld) [Volume fraction] 38.7 % 36.0 - 46.0 % [facility] Hemoglobin (Bld) [Mass/Vol] 12.3 g/dL 11.5 - 15.5 g/dL [facility] Immature granulocytes (Bld) [#/Vol] 0.04 10*3/uL [facility] Immature granulocytes/100 WBC (Bld) 0.7 % [facility] Lymphocytes (Bld) [#/Vol] 1.35 10*3/uL [facility] Lymphocytes/100 WBC (Bld) 22.4 % [facility] MCH (RBC) [Entitic mass] 31.3 pg 26.0 - 34.0 pg [facility] MCHC (RBC) [Mass/Vol] 31.8 g/dL 30.5 - 36.0 g/dL [facility] MCV (RBC) [Entitic vol] 98.5 fL 80.0 - 100.0 fL [facility] Monocytes (Bld) [#/Vol] 0.51 10*3/uL [facility] Monocytes/100 WBC (Bld) 8.5 % [facility] Neutrophils (Bld) [#/Vol] 3.78 10*3/uL [facility] Neutrophils/100 WBC (Bld) 62.6 % [facility] Nucleated RBC (Bld) [#/Vol] [facility] Nucleated RBC/100 WBC (Bld) [Ratio] 0 % /100 WBC [facility] Platelet mean volume (Bld) [Entitic vol] 9.8 fL 9.0 - 12.7 fL [facility] Platelets (Bld) [#/Vol] 314 10*3/uL [facility] RBC (Bld) [#/Vol] 3.93 10*6/uL 3.90 - 5.20 m/uL [facility] WBC (Bld) [#/Vol] 6.03 10*3/uL [facility] Basophils (Bld) [#/Vol] 0.10 10*3/uL Normal <0.11 [facility] Comment on above: Order Comment: Speci men Type: BLOOD SPECIMENOrdering Facility: [facility] Address: [address] [place] [address] Performed By: #### 5 7021-8 ####[facility] [id number] [place] [address] [place] Basophils/100 WBC (Bld) 1.7 % Normal [facility] Comment on above: Order Comment: Speci men Type: BLOOD SPECIMENOrdering Facility: [facility] Address: [address] [place] [address] Performed By: #### 5 7021-8 ####[facility] [id number] [place] [address] [place] Differential cell count method Nom (Bld) Auto Normal [facility] Comment on above: Order Comment: Speci men Type: BLOOD SPECIMENOrdering Facility: [facility] Address: [address] [place] [address] Performed By: #### 5 7021-8 ####[facility] [id number] [place] [address] [place] Eosinophils (Bld) [#/Vol] 0.25 10*3/uL Normal <0.46 [facility] Comment on above: Order Comment: Speci men Type: BLOOD SPECIMENOrdering Facility: [facility] Address: [address] [place] [address] Performed By: #### 5 7021-8 ####[facility]CL[facility] [id number] [place] [id number] [place] Eosinophils/100 WBC (Bld) 4.1 % Normal [facility] Comment on above: Order Comment: Speci men Type: BLOOD SPECIMENOrdering Facility: [facility] Address: [address] [place] [address] Performed By: #### 5 7021-8 ####[facility] [id number] [place] [address] [place] Erythrocyte distribution width (RBC) [Ratio] 12.7 % Normal 11.5-15.0 [facility] Comment on above: Order Comment: Speci men Type: BLOOD SPECIMENOrdering Facility: [facility] Address: [address] [place] [address] Performed By: #### 5 7021-8 ####[facility]IA [id number] [place] [address] [place] Hematocrit (Bld) [Volume fraction] 38.7 % Normal 36.0-46.0 [facility] Comment on above: Order Comment: Speci men Type: BLOOD SPECIMENOrdering Facility: [facility] Address: [address] [place] [address] Performed By: #### 5 7021-8 ####[facility]IA [id number] [place] [address] [place] Hemoglobin (Bld) [Mass/Vol] 12.3 g/dL Normal 11.5-15.5 [facility] Comment on above: Order Comment: Speci men Type: BLOOD SPECIMENOrdering Facility: [facility] Address: [address] [place] [address] Performed By: #### 5 7021-8 ####[facility]IA [id number] [place] [address] [place] Immature granulocytes (Bld) [#/Vol] 0.04 10*3/uL Normal <0.10 [facility] Comment on above: Order Comment: Speci men Type: BLOOD SPECIMENOrdering Facility: [facility] Address: [address] [place] [address] Performed By: #### 5 7021-8 ####[facility] [id number] [place] [address] [place] Immature granulocytes/100 WBC (Bld) 0.7 % Normal [facility] Comment on above: Order Comment: Speci men Type: BLOOD SPECIMENOrdering Facility: [facility] Address: [address] [place] [address] Performed By: #### 5 7021-8 ####[facility]CL[facility] [id number] [place] [address] [place] Lymphocytes (Bld) [#/Vol] 1.35 10*3/uL Normal 1.00-4.00 [facility] Comment on above: Order Comment: Speci men Type: BLOOD SPECIMENOrdering Facility: [facility] Address: [address] [place] [address] Performed By: #### 5 7021-8 ####[facility] LABIA [id number] [address] [place] Lymphocytes/100 WBC (Bld) 22.4 % Normal [facility] Comment on above: Order Comment: Speci men Type: BLOOD SPECIMENOrdering Facility: [facility] Address: [address] [place] [address] Performed By: #### 5 7021-8 ####[facility]IA [id number] [place] [address] [place] MCH (RBC) [Entitic mass] 31.3 pg Normal 26.0-34.0 [facility] Comment on above: Order Comment: Speci men Type: BLOOD SPECIMENOrdering Facility: [facility] Address: [address] [place] [address] Performed By: #### 5 7021-8 ####[facility]CL[facility] [id number] [place] [id number] [place] MCHC (RBC) [Mass/Vol] 31.8 g/dL Normal 30.5-36.0 [facility] Comment on above: Order Comment: Speci men Type: BLOOD SPECIMENOrdering Facility: [facility] Address: [address] [place] [address] Performed By: #### 5 7021-8 ####[facility]CL[facility] [id number] [address] [address] [place] MCV (RBC) [Entitic vol] 98.5 fL Normal 80.0-100.0 [facility] Comment on above: Order Comment: Speci men Type: BLOOD SPECIMENOrdering Facility: [facility] Address: [address] [place] [address] Performed By: #### 5 7021-8 ####[facility]CL[facility] [id number] [place] [address] [place] Monocytes (Bld) [#/Vol] 0.51 10*3/uL Normal <0.87 [facility] Comment on above: Order Comment: Speci men Type: BLOOD SPECIMENOrdering Facility: [facility] Address: [address] [place] [address] Performed By: #### 5 7021-8 ####[facility]CL[facility] [id number] [place] [address] [place] Monocytes/100 WBC (Bld) 8.5 % Normal [facility] Comment on above: Order Comment: Speci men Type: BLOOD SPECIMENOrdering Facility: [facility] Address: [address] [place] [address] Performed By: #### 5 7021-8 ####[facility]CLIA [id number] [place] [address] [place] Neutrophils (Bld) [#/Vol] 3.78 10*3/uL Normal 1.45-7.50 [facility] Comment on above: Order Comment: Speci men Type: BLOOD SPECIMENOrdering Facility: [facility] Address: [address] [place] [address] Performed By: #### 5 7021-8 ####[facility]CL[facility] [id number] [place] [address] [place] Neutrophils/100 WBC (Bld) 62.6 % Normal [facility] Comment on above: Order Comment: Speci men Type: BLOOD SPECIMENOrdering Facility: [facility] Address: [address] [place] [address] Performed By: #### 5 7021-8 ####[facility]CL[facility] [id number] [place] [address] [place] Nucleated RBC (Bld) [#/Vol] 10*3/uL Normal <0.01 [facility] Comment on above: Order Comment: Speci men Type: BLOOD SPECIMENOrdering Facility: [facility] Address: [address] [place] [address] Performed By: #### 5 7021-8 ####[facility] LABIA [id number] [place] [address] [place] Nucleated RBC/100 WBC (Bld) [Ratio] 0.0 /100 WBC Normal [facility] Comment on above: Order Comment: Speci men Type: BLOOD SPECIMENOrdering Facility: [facility] Address: [address] [place] [address] Performed By: #### 5 7021-8 ####[facility]IA [id number] [place] [address] [place] Platelet mean volume (Bld) [Entitic vol] 9.8 fL Normal 9.0-12.7 [facility] Comment on above: Order Comment: Speci men Type: BLOOD SPECIMENOrdering Facility: [facility] Address: [address] [place] [address] Performed By: #### 5 7021-8 ####[facility]IA [id number] [place] [address] [place] Platelets (Bld) [#/Vol] 314 10*3/uL Normal 150-400 [facility] Comment on above: Order Comment: Speci men Type: BLOOD SPECIMENOrdering Facility: [facility] Address: [address] [place] [address] Performed By: #### 5 7021-8 ####[facility] LABIA [id number] [place] [address] [place] RBC (Bld) [#/Vol] 3.93 10*6/uL Normal 3.90-5.20 [facility] Comment on above: Order Comment: Speci men Type: BLOOD SPECIMENOrdering Facility: [facility] Address: [address] [place] [address] Performed By: #### 5 7021-8 ####[facility] LABIA [id number] [place] [address] [place] WBC (Bld) [#/Vol] 6.03 10*3/uL Normal 3.70-11.00 [facility] Comment on above: Order Comment: Speci men Type: BLOOD SPECIMENOrdering Facility: [facility] Address: [address] [place] [address] Performed By: #### 5 7021-8 ####[facility] LABIA [id number] [address] [place] CNOVon 10-04-2024 CNOV Office Visit (FAMPWS ) BEHZAD HAY ([id number]) 1940 F Date Time Provider Department 10/04/24 10:40 AM TASHA DEUTSCH FAMPWS During your visit today, we recorded the following information about you: Pulse Blood pressure Weight 46/minute 136/62 51.7 kg Tasha DeutschEAN.PROPERTY ADJUSTER 10/04/2024 11:22 AM Signed This is a [...] Bactrim [Sulfamethoxazole-Trimethop rim], Macrobid [Nitrofurantoin Monohyd/M-Cryst], and Gijbrpl-Vdp-Rds Reductase Inhibitors MEDICATIONS Current Outpatient Medications Medication [...] CAPSICUM, CAYENNE (more content not included)... Normal [facility] Ferritin SerPl-ncon 2024 Ferritin [Mass/Vol] 91.0 ng/mL Normal 14.7-205.1 [facility] Comment on above: Order Comment: Speci men Type: BLOOD SPECIMENOrdering Facility: [facility] Address: [address] [place] [address] Performed By: #### 5 0190-8, 25631-4, 2131-12, 2275-07 ####[facility] LABIA [id number] [place] [id number] [place] Iron and Iron binding capaci panel 10-04-2024 Iron [Mass/Vol] 92 ug/dL Normal 41-186 [facility] Comment on above: Order Comment: Speci men Type: BLOOD SPECIMENOrdering Facility: [facility] Address: [address] [place] [address] Performed By: #### 5 0190-8, 32719-6, 2131-12, 2275-07 ####[facility] LABIA [id number] [place] [address] [place] Iron binding capacity [Mass/Vol] 308 ug/dL Normal 232-386 [facility] Comment on above: Order Comment: Speci men Type: BLOOD SPECIMENOrdering Facility: [facility] Address: [address] [place] [address] Performed By: #### 5 0190-8, 92486-0, 2131-12, 2275-07 ####[facility] LABIA [id number] [place] [id number] [place] Iron/TIBC [Molar ratio] 29.9 % Normal 15.0-57.0 [facility] Comment on above: Order Comment: Cheri jimenez Type: BLOOD SPECIMENOrdering Facility: [facility] Address: [address] [address] [place], [place] [id number] Performed By: #### 5 0190-8, 06451-4, 2131-9, 2275-4 ####[facility] LABCLIA [id number] [place] [id number] [facility] Neurology Visit Reporton Neurology Visit Report Normal [facility] Vit B12 SerPl-ncon 025 Cobalamin (Vitamin B12) [Mass/Vol] 1442 pg/mL High 232-1245 [facility] Comment on above: Order Comment: Cheri jimenez Type: BLOOD SPECIMENOrdering Facility: [facility] Address: [address] [place] [address] Performed By: #### 5 0190-8, 03968-6, 9, 4 ####[facility] LABCLIA [id number] [address] [address] [facility] CNPNon 09-27-2024 CNPN Telephone (HCSIND) BHARTIBEHZAD ([id number]) 1940 F Date Time Provider Department 09/27/24 [...] Rash MACROBID (NITROFURANTOIN MONOHYD/*09/25/2018 2 - Rash PYMMDXN-NDB-AAN REDUCTASE INHIBIT*10/06/2014 5 - Intolerance Comments: severe [...] osteoarthritis of right hip [M16.11] 02/27/2017 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 (HCC) [[id number]] 07/28/2017 07/06/2018 Collagenous colitis [K52.831] 12/21/2018 IBS (irritable bowel syndrome) [K58.9] 12/21/2018 Hiatal hernia [K44.9] 09/11/2020 Fall from standing [W19.XXXA] 06/05/2021 Rotator cuff tear arthropathy, left [M75.102, M*10/29/2021 Paroxysmal atrial fibrillation (HCC) [I48.0] 04/11/2022 Primary hypertension [I10] 12/30/2022 Acute pain of right shoulder [M25.511] 04/16/2023 Severe pain of left shoulder [M25.512] 04/16/2023 Cervicalgia [M54.2] 04/16/2023 Encounter Status:Closed by MOSES ROSS on 09/27/24 [facility] BEH[facility]AY ([id number]) 1940 F Date Time Provider Department 09/24/24 [facility] During your visit today, we recorded the following information about you: GetTasha APRN.CNP 09/24/2024 12:45 PM Signed Patient was admitted to [facility] on August 22, 2024 and [...] 19, creatinine 0.98, glucose 101 Tasha Deutsch APRN.PROPERTY ADJUSTER 11/09/2024 5:27 PM Signed Patient was discharged [...] Rash MACROBID (NITROFURANTOIN MONOHYD/*09/25/2018 2 - Rash ULAOJEC-HWP-ZGI REDUCTASE INHIBIT*10/06/2014 5 - Intolerance Comments: severe leg pain Date Reviewed: 09/22/2024 Reviewed by: Jocelyn Hernandez, RN - Fully Assessed Prescriptions as of 11/09/2024 - acetaminophen (TYLENOL ARTHRITIS PAIN) 650 mg CR tablet Take 650 mg by mouth once daily. - Cholecalciferol, Vitamin D3, (VITAMIN D) 25 mcg (1,000 unit) cap Take 1,000 Units by mouth o (more content not included)... Normal [facility] 09-23-2024 [facility] ([id number]) 1940 F Date Time Provider Department 09/23/24 CESAR JONES During your visit today, we recorded the following information about you: Cesar Jones LSW 09/23/2024 1:02 PM Signed 09/23/24 [employer] called the pt.'s daughter Aditi Carvalho regarding community resources for the pt. The pt.'s daughter stated that she lives in [place] but her brother the pt.'s son lives [...] the pt. is doing after next week. SUPERVISOR [employer]DER MAKING asked about the pt. being and if her was a [place]. The pt.'s daughter stated the pt.'s was not a [place]. The pt.'s daughter stated they were looking for a private Aide not through an Agency. SUPERVISOR SOLDER MAKING discussed [employer] and the pt.'s daughter stated her lvjmcj-yg-tww was looking on [employer]. She stated her fsgjfj-rs-oue had a in her family. SUPERVISOR SOLDER MAKING asked the pt.'s daughter if the pt. belonged to a cheondoism and possibly asking the cheondoism of anyone. The pt.'s daughter stated the pt. does belong to a cheondoism. SUPERVISOR SOLDER MAKING discussed [facility] Agency on Aging AND Disabilities for PASSPORT. The pt.'s daughter was aware of PASSPORT and stated the pt. did not meet financial guidelines for Medicaid. SUPERVISOR SOLDER MAKING asked the pt.'s daughter if the pt. owns her home and educated on Estate Recovery on PASSPORT. SUPERVISOR SOLDER MAKING asked about transportation and family is able to get the pt. to appointments. SUPERVISOR SOLDER MAKING discussed Home Delivered Meal providers and the Aides will make the pt.'s meals. SUPERVISOR SOLDER MAKING asked the pt.'s daughter if the pt. had an ER Medical Alert and she stated they were going to look into this. SUPERVISOR SOLDER MAKING educated on getting an ER Medical Alert through [facility]. The pt.'s daughter wanted SUPERVISOR [employer]KING to Email her information on ER Medical Alert providers. Her Email: [email or web address] The pt.'s daughter stated she just wanted to know about community resources and she feels they are managing the pt.'s care and the pt. having the hired Aide starting next week. SUPERVISOR SOLDER MAKING provided the pt.'s daughter with her name and phone number. 09/23/24 [employer]PERVISOR [employer]KING Emailed the pt.'s daughter information on getting an ER Medical Alert through [facility] and other ER Medical Alerts and website for [employer] [place] on Aging. Thank You, Allergies As of Date: 09/23/2024 Noted Allergy Reaction ADHESIVE TAPE (ROSINS) 08/27/2011 2 - Rash BACTRIM (SULFAMETHOXAZOLE-TRIMETH*0 09/25/2018 2 - Rash MACROBID (NITROFURANTOIN MONOHYD/*09/25/2018 2 - Rash JZQATXZ-SCU-AQC REDUCTASE INHIBIT*10/06/2014 5 - Intolerance Comments: severe [...] osteoarthritis of right hip [M16.11] 02/27/2017 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 (HCC) [[id number]] 07/28/2017 07/06/2018 Collagenous colitis [K52.831] 12/21/2018 IBS (irritable bowel syn (more content not included)... Normal [facility] CNCAjit 09-22-2024 CNCO Letter Text Normal [facility] CNPChelsea 09-21-2024 CNPN Telephone (HCSIND) BHARTIBEHZAD Lugo ([id number]) 1940 F Date Time Provider Department 09/21/24 [...] Rash MACROBID (NITROFURANTOIN MONOHYD/*09/25/2018 2 - Rash XKKRZBU-LUK-OEU REDUCTASE INHIBIT*10/06/2014 5 - Intolerance Date Reviewed: 04/26/2024 Reviewed by: Tasha Deutsch APRN.PROPERTY ADJUSTER - Fully Assessed Prescriptions as of 09/21/2024 [...] osteoarthritis of right hip [M16.11] 02/27/2017 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 (HCC) [[id number]] 07/28/2017 07/06/2018 Collagenous colitis [K52.831] 12/21/2018 IBS (irritable bowel syndrome) [K58.9] 12/21/2018 Hiatal hernia [K44.9] 09/11/2020 Fall from standing [W19.XXXA] 06/05/2021 Rotator cuff tear arthropathy, left [M75.102, M*10/29/2021 Paroxysmal atrial fibrillation (HCC) [I48.0] 04/11/2022 Primary hypertension [I10] 12/30/2022 Acute pain of right shoulder [M25.511] 04/16/2023 Severe pain of left shoulder [M25.512] 04/16/2023 Cervicalgia [M54.2] 04/16/2023 Encounter Status:Closed by NGA MCCALL on 09/21/24 Normal [facility] CNCOon 09-20-2024 CNCO Letter Text Normal [facility] Anion gap in Serum or Plasma Ordered By: Behzad Dorado on 09-17-2024 Anion gap [Moles/Vol] 9 mmol/L 08-26 [facility] BUN/creatinine ratioOrdered By: Behzad Dorado on 09-17-2024 Urea nitrogen/Creatinine [Mass ratio] 19.3 mg/mg 01-31 [facility] Basic Metabolic Profile (BMP )on 09-17-2024 BUN/CRE 19.3 RATIO Normal 01-31 [facility] Comment on above: Performed By: #### L 100.0500, L500.2500 ####[facility] [address] [place], [address] Calcium [Mass/Vol] 9.3 mg/dL Normal 7.6-11.0 [facility] Comment on above: Performed By: #### L 100.0500, L500.2500 ####[facility] [address] [place], [address] Chloride [Moles/Vol] 105 mmol/L Normal 98-108 [facility] Comment on above: Performed By: #### L 100.0500, L500.2500 ####[facility] [address] [place], [address] CO2 [Moles/Vol] 25.4 mmol/L Normal 21.0-32.0 [facility] Comment on above: Performed By: #### L 100.0500, L500.2500 ####[facility] [address] [place], [address] Creatinine [Mass/Vol] 0.98 mg/dL Normal 0.70-1.20 [facility] Comment on above: Performed By: #### L 100.0500, L500.2500 ####[facility] [address] [place], [address] ECRCL 32.59 ml/min Low 50-250 [facility] Comment on above: Performed By: #### L 100.0500, L500.2500 ####[facility] [address] [place], [address] GAP 9 Normal 5-15 [facility] Comment on above: Performed By: #### L 100.0500, L500.2500 ####[facility] [address] [place], [address] GFR/1.73 sq M.predicted among non-blacks MDRD (S/P/Bld) [Vol rate/Area] 56 mL/min/{1.73_m2} Low >60 [facility] Comment on above: Result Comment: mL/m in/1.73m2 CKD-EPI Creatinine Equation (2020) Performed By: #### L 100.0500, L500.2500 ####[facility] [address] [place], [address] Glucose [Mass/Vol] 101 mg/dL High 70-99 [facility] Comment on above: Performed By: #### L 100.0500, L500.2500 ####[facility] [address] [place], [address] Potassium [Moles/Vol] 4.3 mmol/L Normal 3.3-5.1 [facility] Comment on above: Performed By: #### L 100.0500, L500.2500 ####[facility] [address] [place], [address] Sodium [Moles/Vol] 140 mmol/L Normal 133-145 [facility] Comment on above: Performed By: #### L 100.0500, L500.2500 ####[facility] [address] [place], [address] Urea nitrogen [Mass/Vol] 19 mg/dL Normal 4-19 [facility] Comment on above: Performed By: #### L 100.0500, L500.2500 ####[facility] [address] [place], [address] CBC-Complete Blood Cnt No Di ffon 09-17-2024 Erythrocyte distribution width (RBC) [Ratio] 12.4 % Normal 11.6-14.6 [facility] Comment on above: Performed By: #### L 100.0500, L500.2500 ####[facility] [address] [place], [address] Hematocrit (Bld) [Volume fraction] 34.5 % Low 37-47 [facility] Comment on above: Performed By: #### L 100.0500, L500.2500 ####[facility] [address] [place], [address] Hemoglobin (Bld) [Mass/Vol] 11.1 g/dL Low 12.0-15.0 [facility] Comment on above: Performed By: #### L 100.0500, L500.2500 ####[facility] [address] [place], [address] MCH (RBC) [Entitic mass] 31.0 pg Normal 27.0-32.0 [facility] Comment on above: Performed By: #### L 100.0500, L500.2500 ####[facility] [address] [place], [address] MCHC (RBC) [Mass/Vol] 32.2 g/dL Normal 32-36 [facility] Comment on above: Performed By: #### L 100.0500, L500.2500 ####[facility] [address] [place], [address] MCV (RBC) [Entitic vol] 96.4 fL Normal 81-99 [facility] Comment on above: Performed By: #### L 100.0500, L500.2500 ####[facility] [address] [place], [address] Platelet mean volume (Bld) [Entitic vol] 9.2 fL Normal 6.2-12.0 [facility] Comment on above: Performed By: #### L 100.0500, L500.2500 ####[facility] [address] [place], [address] Platelets (Bld) [#/Vol] 249 10*3/uL Normal 150-450 [facility] Comment on above: Performed By: #### L 100.0500, L500.2500 ####[facility] [address] [place], [address] RBC (Bld) [#/Vol] 3.58 10*6/uL Low 4.2-5.4 [facility] Comment on above: Performed By: #### L 100.0500, L500.2500 ####[facility] [address] [place], [address] RDW SD 43.9 fl Normal 35.1-43.9 [facility] Comment on above: Performed By: #### L 100.0500, L500.2500 ####[facility] [address] [place], [address] WBC (Bld) [#/Vol] 5.6 10*3/uL Normal 4.4-11.0 [facility] Comment on above: Performed By: #### L 100.0500, L500.2500 ####[facility] [address] [place], [address] CNPNon 09-17-2024 [facility] Telephone (HCSIND) BEHZAD HAY ([id number]) 1940 F Date Time Provider Department 09/17/24 ASAD UBTLER HCSIND During your visit today, we recorded the following information about you: Tamela James 09/17/2024 1:50 PM Signed Date/Time: 09/17/2024 1:48 PM Spoke with ADITI CARVALHO@ phone #: [phone] - Preferred # for contact: ADITI CARVALHO@ phone #: [phone] Have you received help from a home care company in the last 60 days? NO Are you agreeable to [facility] services? YES What [address] will we be seeing you at? [address] [facility] [address] Do you have any upcoming appointments or things we need to schedule around? NO Do you have a teachable CG or can you manage your care independently? CG Who? 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/2017 07/06/2018 Collagenous colitis [K52.831] 12/21/2018 IBS (irritable bowel syndrome) [K58.9] 12/21/2018 Hiatal hernia [K44.9] 09/11/2020 Fall from standing [W19.XXXA] 06/05/2021 Rotator cuff tear arthropathy, left [M75.102, M*10/29/2021 Paroxysmal atrial fibrillation (HCC) [I48.0] 04/11/2022 Primary hypertension [I10] 12/30/2022 Acute pain of right shoulder [M25.511] 04/16/2023 Severe pain of left shoulder [M25.512] 04/16/2023 Cervicalgia [M54.2] 04/16/2023 Encounter Status:Closed by ASAD BUTLER on 09/17/24 Normal [facility] Telephone (HCSIND) BEHZAD HAY ([id number]) 1940 F Date Time Provider Department 09/17/24 [...] may also obtain orders from [facility] Providers Thank you and we would be happy to answer any questions. Elisha Thompson LPN 09/17/2024 12:28 PM Tasha Deutsch APRN.CNP 09/17/2024 12:55 PM Signed Yes. I will follow Allergies As of Date: 09/17/2024 Noted Allergy Reaction ADHESIVE TAPE (ROSINS) 08/27/2011 2 - Rash BACTRIM (SULFAMETHOXAZOLE-TRIMETH*0 09/25/2018 2 - Rash MACROBID (NITROFURANTOIN MONOHYD/*09/25/2018 2 - Rash OZVMRJD-QVR-VAC REDUCTASE INHIBIT*10/06/2014 5 - Intolerance Date Reviewed: [...] hip [M16.11] 02/27/2017 Iatrogenic Jesse's disease (HCC) [[id number]] 07/28/2017 07/06/2018 Collagenous colitis [K52.831] 12/21/2018 IBS (irritable bowel syndrome) [K58.9] 12/21/2018 Hiatal hernia [K44.9] 09/11/2020 Fall from standing [W19.XXXA] 06/05/2021 Rotator cuff tear arthropathy, left [M75.102, M*10/29/2021 Paroxysmal atrial fibrillation (HCC) [I48.0] 04/11/2022 Primary hypertension [I10] 12/30/2022 Acute pain of right shoulder [M25.511] 04/16/2023 Severe pain of left shoulder [M25.512] 04/16/2023 Cervicalgia [M54.2] 04/16/2023 Encounter Status:Closed by ELISHA THOMPSON on 09/17/24 Normal [facility] Carbon dioxide, total [Moles /volume] in Central venous bloodOrdered By: Behzad Dorado on 09-17-2024 CO2 [Moles/Vol] 25.4 mmol/L 21.0-32.0 [facility] Chloride assayOrdered By: Amandeep Dorado on 09-17-2024 Chloride [Moles/Vol] 105 mmol/L 98-108 [facility] Discharge Instructionon Discharge Instruction Normal [facility] Erythrocyte distribution wid th ratioOrdered By: Behzad Dorado on 09-17-2024 Erythrocyte distribution width (RBC) [Ratio] 12.4 % 11.6-14.6 [facility] Erythrocyte distribution wid th standard deviationOrdered By: Behzad Dorado on 09-17-2024 Erythrocyte distribution width (RBC) [Ratio] 43.9 fl 35.1-43.9 [facility] Glomerular filtration rate ( GFR) estimation/1.73 sq m using serum, plasma, or whole bOrdered By: Behzad Dorado on 09-17-2024 GFR/1.73 sq M.predicted among non-blacks MDRD (S/P/Bld) [Vol rate/Area] 56 mL/min/{1.73_m2} Low >60 [facility] Comment on above: mL/min/1.73m2 CKD-EP I Creatinine Equation (2020) Hematocrit Auto (Bld) [Volum e fraction]Ordered By: Behzad Dorado on 09-17-2024 Hematocrit (Bld) [Volume fraction] 34.5 % Low 37-47 [facility] Hemoglobin measurementOrdere d By: Behzad Dorado on 09-17-2024 Hemoglobin (Bld) [Mass/Vol] 11.1 g/dL Low 12.0-15.0 [facility] MCV (mean corpuscular volume ) determinationOrdered By: Behzad Dorado on 09-17-2024 MCV (RBC) [Entitic vol] 96.4 fL 81-99 [facility] Mean corpuscular hemoglobin (MCH) determinationOrdered By: Behzad Dorado on 09-17-2024 MCH (RBC) [Entitic mass] 31.0 pg 27.0-32.0 [facility] Mean corpuscular hemoglobin concentration (MCHC) determinationOrdered By: Behzad Dorado on 09-17-2024 MCHC (RBC) [Mass/Vol] 32.2 g/dL 32-36 [facility] Mean platelet volume determi nationOrdered By: Behzad Dorado on 09-17-2024 Platelet mean volume (Bld) [Entitic vol] 9.2 fL 6.2-12.0 [facility] Platelet countOrdered By: Amandeep Dorado on 09-17-2024 Platelets (Bld) [#/Vol] 249 10*3/uL 150-450 [facility] Potassium measurement (mass/ volume)Ordered By: Behzad Dorado on 09-17-2024 Potassium (Unsp spec) [Mass/Vol] 4.3 mmol/L 3.3-5.1 [facility] RBC Auto (Bld) [#/Vol]Ordere d By: Behzad Dorado on 09-17-2024 RBC (Bld) [#/Vol] 3.58 10*6/uL Low 4.2-5.4 [facility] Serum creatinine measurement (mass/volume)Ordered By: Behzad Dorado on 09-17-2024 Creatinine [Mass/Vol] 0.98 mg/dL 0.70-1.20 [facility] Serum glucose measurement (m ass/volume)Ordered By: Behzad Dorado on 09-17-2024 Glucose [Mass/Vol] 101 mg/dL High 70-99 [facility] Serum or plasma calcium camilo urement (mass/volume)Ordered By: Behzad Dorado on 09-17-2024 Calcium [Mass/Vol] 9.3 mg/dL 7.6-11.0 [facility] Serum or plasma urea nitroge n measurement (mass/volume)Ordered By: Behzad Dorado on 09-17-2024 Urea nitrogen [Mass/Vol] 19 mg/dL 4-19 [facility] Sodium levelOrdered By: Behzad Dorado on 09-17-2024 Sodium [Moles/Vol] 140 mmol/L 133-145 [facility] Stool Lactoferrin/WBCon 06-5 WBCST Normal Reference Ran ge = Negative Fecal WBC Lactoferrin A Positive: Fecal WBC Lactoferrin present A Normal [facility] Comment on above: Performed By: #### M 100.0605 ####[facility] [address] [place], [address] Stool lactoferrin detection by immunoassayOrdered By: Behzad Dorado on 09-17-2024 Lactoferrin IA Ql (Stl) [facility] White blood cell (WBC) count Ordered By: Behzad Dorado on 09-17-2024 WBC (Bld) [#/Vol] 5.6 10*3/uL 4.4-11.0 [facility] Urine Cultureon 09-15-2024 URC Normal [facility] Comment on above: Performed By: #### M 100.2200 ####[facility] [address] [place], [address] Basic Metabolic Profile (BMP )on 09-13-2024 BUN/CRE 20.6 RATIO High 10-20 [facility] Comment on above: Performed By: #### L 500.2500, L100.0600 ####[facility] [address] [place], [address] Calcium [Mass/Vol] 9.4 mg/dL Normal 7.6-11.0 [facility] Comment on above: Performed By: #### L 500.2500, L100.0600 ####[facility] [address] [place], [address] Chloride [Moles/Vol] 105 mmol/L Normal 98-108 [facility] Comment on above: Performed By: #### L 500.2500, L100.0600 ####[facility] [address] [place], [address] CO2 [Moles/Vol] 26.2 mmol/L Normal 21.0-32.0 [facility] Comment on above: Performed By: #### L 500.2500, L100.0600 ####[facility] [address] [place], [address] Creatinine [Mass/Vol] 1.09 mg/dL Normal 0.70-1.20 [facility] Comment on above: Performed By: #### L 500.2500, L100.0600 ####[facility] [address] [place], [address] ECRCL 29.30 ml/min Low 50-250 [facility] Comment on above: Performed By: #### L 500.2500, L100.0600 ####[facility] [address] [place], [address] GAP 9 Normal 5-15 [facility] Comment on above: Performed By: #### L 500.2500, L100.0600 ####[facility] [address] [place], [address] GFR/1.73 sq M.predicted among non-blacks MDRD (S/P/Bld) [Vol rate/Area] 49 mL/min/{1.73_m2} Low >60 [facility] Comment on above: Result Comment: mL/m in/1.73m2 CKD-EPI Creatinine Equation (2020) Performed By: #### L 500.2500, L100.0600 ####[facility] [address] [place], [address] Glucose [Mass/Vol] 98 mg/dL Normal 70-99 [facility] Comment on above: Performed By: #### L 500.2500, L100.0600 ####[facility] [address] [place], [address] Potassium [Moles/Vol] 4.7 mmol/L Normal 3.3-5.1 [facility] Comment on above: Performed By: #### L 500.2500, L100.0600 ####[facility] [address] [place], [address] Sodium [Moles/Vol] 140 mmol/L Normal 133-145 [facility] Comment on above: Performed By: #### L 500.2500, L100.0600 ####[facility] [address] [place], [address] Urea nitrogen [Mass/Vol] 23 mg/dL High 4-19 [facility] Comment on above: Performed By: #### L 500.2500, L100.0600 ####[facility] [address] [place], [address] Bilirubin Test strip Ql (U)O rdered By: Behzad Dorado on 09-13-2024 Bilirubin Ql (U) Negative Negative [facility] HH, Hemoglobin AND Hematocri ton 09-13-2024 Hematocrit (Bld) [Volume fraction] 35.8 % Low 37-47 [facility] Comment on above: Performed By: #### L 500.2500, L100.0600 ####[facility] [address] [place], [address] Hemoglobin (Bld) [Mass/Vol] 11.4 g/dL Low 12.0-15.0 [facility] Comment on above: Performed By: #### L 500.2500, L100.0600 ####[facility] [address] [place], [address] Ketones Test strip Ql (U)Ord ered By: Behzad Dorado on 09-13-2024 Ketones Ql (U) Negative Negative [facility] Microscopic analysis of urin e for red blood cells (RBC)Ordered By: Behzad Dorado on 09-13-2024 Microscopic analysis of urine for red blood cells (RBC) 0-5 SEEN /hpf 0-5 [facility] Mucus LM Ql (Urine sed)Order ed By: Behzad Dorado on 09-13-2024 Mucus Ql (Urine sed) 0 SEEN /hpf [facility] Nitrite Test strip Ql (U)Ord ered By: Behzad Dorado on 09-13-2024 Nitrite Ql (U) Positive High Negative [facility] Protein Test strip Ql (U)Ord ered By: Behzad Dorado on 09-13-2024 Protein Ql (U) 15 mg/dl High Negative [facility] Squamous epithelial cells de tection in urine sediment by light microscopyOrdered By: Behzad Dorado on 09-13-2024 Epithelial cells.squamous LM Ql (Urine sed) 0 SEEN /hpf 5-10 [facility] Urinalysis, Completeon 09-13 BACTERIA 2+ /hpf Normal None Seen [facility] Comment on above: Order Comment: JAMESON TER SPECIMEN Performed By: #### L 400.0001 ####[facility] [address] [place], [address] RBC 0-5 SEEN Normal 0-5 [facility] Comment on above: Order Comment: JAMESON TER SPECIMEN Performed By: #### L 400.0001 ####[facility] [address] [place], [address] WBC 25-50 SEEN Normal 0-5 [facility] Comment on above: Order Comment: JAMESON TER SPECIMEN Performed By: #### L 400.0001 ####[facility] [address] [place], [address] EPI,SQUAMOUS 0 SEEN Normal 5-10 [facility] Comment on above: Order Comment: JAMESON TER SPECIMEN Performed By: #### L 400.0001 ####[facility] [address] [place], [address] Mucus Ql (Urine sed) 0 SEEN Normal [facility] Comment on above: Order Comment: JAMESON TER SPECIMEN Performed By: #### L 400.0001 ####[facility] [address] [place], [address] Urine clarityOrdered By: Maday Dorado on 09-13-2024 Clarity (U) Sl. Cloudy Clear [facility] Urine color determinationOrd ered By: Behzad Dorado on 09-13-2024 Color (U) Yellow Yellow [facility] Urine cultureOrdered By: Maday Dorado on 09-13-2024 Bacteria identified Cx Nom (U) Escherichia coli Abnormal [facility] Urine glucose detectionOrder ed By: Behzad Garciaalexus on 09-13-2024 Glucose Ql (U) Normal mg/dl Normal [facility] Urine leukocyte esterase det ection by dipstickOrdered By: Behzad Estrada on 09-13-2024 Leukocyte esterase Test strip Ql (U) 500 /ul High Negative [facility] Urine pHOrdered By: Behzad Radha lieberman on 09-13-2024 pH (U) 6.0 [pH] 5.0 - 8.0 [facility] Urine sediment bacteria coun t by microscopy (number/high power field)Ordered By: Behzad Estrada on 09-13-2024 Bacteria LM.HPF (Urine sed) [#/Area] 2 /[HPF] None Seen [facility] Urine specific gravity measu rementOrdered By: Behzad Estrada on 09-13-2024 Specific gravity (U) [Rel density] 1.015 1.002-1.03 0 [facility] Urine urobilinogen measureme ntOrdered By: Behzad Dorado on 09-13-2024 Urobilinogen Ql (U) Normal mg/dl Normal [facility] White blood cell countOrdere d By: Behzad Estrada on 09-13-2024 White blood cell count 25-50 SEEN /hpf 0-5 [facility] Basic Metabolic Profile (BMP )on 09-06-2024 BUN/CRE 20.0 RATIO Normal 10-20 [facility] Comment on above: Performed By: #### L 500.2500, L1.06 ####[facility] [address] [facility] [place], [address] Calcium [Mass/Vol] 9.1 mg/dL Normal 7.6-11.0 [facility] Comment on above: Performed By: #### L 500.2500, L100.0600 ####[facility] [address] [place], [address] Chloride [Moles/Vol] 104 mmol/L Normal 98-108 [facility] Comment on above: Performed By: #### L 500.2500, L100.0600 ####[facility] [address] [place], [address] CO2 [Moles/Vol] 27.0 mmol/L Normal 21.0-32.0 [facility] Comment on above: Performed By: #### L 500.2500, L100.0600 ####[facility] [address] [place], [address] Creatinine [Mass/Vol] 0.89 mg/dL Normal 0.70-1.20 [facility] Comment on above: Performed By: #### L 500.2500, L100.0600 ####[facility] [address] [place], [address] ECRCL 35.89 ml/min Low 50-250 [facility] Comment on above: Performed By: #### L 500.2500, L100.0600 ####[facility] [address] [place], [address] GAP 9 Normal 5-15 [facility] Comment on above: Performed By: #### L 500.2500, L100.0600 ####[facility] [address] [place], [address] GFR/1.73 sq M.predicted among non-blacks MDRD (S/P/Bld) [Vol rate/Area] 63 mL/min/{1.73_m2} Normal >60 [facility] Comment on above: Result Comment: mL/m in/1.73m2 CKD-EPI Creatinine Equation (2020) Performed By: #### L 500.2500, L100.0600 ####[facility] [address] [place], [address] Glucose [Mass/Vol] 95 mg/dL Normal 70-99 [facility] Comment on above: Performed By: #### L 500.2500, L100.0600 ####[facility] [address] [place], [address] Potassium [Moles/Vol] 4.3 mmol/L Normal 3.3-5.1 [facility] Comment on above: Performed By: #### L 500.2500, L100.0600 ####[facility] [address] [place], [address] Sodium [Moles/Vol] 141 mmol/L Normal 133-145 [facility] Comment on above: Performed By: #### L 500.2500, L100.0600 ####[facility] [address] [place], [address] Urea nitrogen [Mass/Vol] 18 mg/dL Normal 4-19 [facility] Comment on above: Performed By: #### L 500.2500, L100.0600 ####[facility] [address] [place], [address] HH, Hemoglobin AND Hematocri ton 09-06-2024 Hematocrit (Bld) [Volume fraction] 34.9 % Low 37-47 [facility] Comment on above: Performed By: #### L 500.2500, L100.0600 ####[facility] [address] [place], [address] Hemoglobin (Bld) [Mass/Vol] 11.3 g/dL Low 12.0-15.0 [facility] Comment on above: Performed By: #### L 500.2500, L100.0600 ####[facility] [address] [place], [address] Basic Metabolic Profile (BMP )on 08-30-2024 BUN/CRE 20.3 RATIO High 10-20 [facility] Comment on above: Performed By: #### L 100.0500, L500.2500 ####[facility] [address] [place], [address] Calcium [Mass/Vol] 9.6 mg/dL Normal 7.6-11.0 [facility] Comment on above: Performed By: #### L 100.0500, L500.2500 ####[facility] [address] [place], [address] Chloride [Moles/Vol] 106 mmol/L Normal 98-108 [facility] Comment on above: Performed By: #### L 100.0500, L500.2500 ####[facility] [address] [place], [address] CO2 [Moles/Vol] 25.3 mmol/L Normal 21.0-32.0 [facility] Comment on above: Performed By: #### L 100.0500, L500.2500 ####[facility] [address] [place], [address] Creatinine [Mass/Vol] 0.86 mg/dL Normal 0.70-1.20 [facility] Comment on above: Performed By: #### L 100.0500, L500.2500 ####[facility] [address] [place], [address] ECRCL 37.14 ml/min Low 50-250 [facility] Comment on above: Performed By: #### L 100.0500, L500.2500 ####[facility] [address] [place], [address] GAP 8 Normal 5-15 [facility] Comment on above: Performed By: #### L 100.0500, L500.2500 ####[facility] [address] [place], [address] GFR/1.73 sq M.predicted among non-blacks MDRD (S/P/Bld) [Vol rate/Area] 66 mL/min/{1.73_m2} Normal >60 [facility] Comment on above: Result Comment: mL/m in/1.73m2 CKD-EPI Creatinine Equation (2020) Performed By: #### L 100.0500, L500.2500 ####[facility] [address] [place], [address] Glucose [Mass/Vol] 107 mg/dL High 70-99 [facility] Comment on above: Performed By: #### L 100.0500, L500.2500 ####[facility] [address] [place], [address] Potassium [Moles/Vol] 4.2 mmol/L Normal 3.3-5.1 [facility] Comment on above: Performed By: #### L 100.0500, L500.2500 ####[facility] [address] [place], [address] Sodium [Moles/Vol] 139 mmol/L Normal 133-145 [facility] Comment on above: Performed By: #### L 100.0500, L500.2500 ####[facility] [address] [place], [address] Urea nitrogen [Mass/Vol] 17 mg/dL Normal 4-19 [facility] Comment on above: Performed By: #### L 100.0500, L500.2500 ####[facility] [address] [place], [address] CBC-Complete Blood Cnt No Di ffon 08-30-2024 Erythrocyte distribution width (RBC) [Ratio] 12.5 % Normal 11.6-14.6 [facility] Comment on above: Performed By: #### L 100.0500, L500.2500 ####[facility] [address] [place], [address] Hematocrit (Bld) [Volume fraction] 39.6 % Normal 37-47 [facility] Comment on above: Performed By: #### L 100.0500, L500.2500 ####[facility] [address] [place], [address] Hemoglobin (Bld) [Mass/Vol] 12.7 g/dL Normal 12.0-15.0 [facility] Comment on above: Performed By: #### L 100.0500, L500.2500 ####[facility] [address] [place], [address] MCH (RBC) [Entitic mass] 31.4 pg Normal 27.0-32.0 [facility] Comment on above: Performed By: #### L 100.0500, L500.2500 ####[facility] [address] [place], [address] MCHC (RBC) [Mass/Vol] 32.1 g/dL Normal 32-36 [facility] Comment on above: Performed By: #### L 100.0500, L500.2500 ####[facility] [address] [place], [address] MCV (RBC) [Entitic vol] 97.8 fL Normal 81-99 [facility] Comment on above: Performed By: #### L 100.0500, L500.2500 ####[facility] [address] [place], [address] Platelet mean volume (Bld) [Entitic vol] 8.7 fL Normal 6.2-12.0 [facility] Comment on above: Performed By: #### L 100.0500, L500.2500 ####[facility] [address] [place], [address] Platelets (Bld) [#/Vol] 364 10*3/uL Normal 150-450 [facility] Comment on above: Performed By: #### L 100.0500, L500.2500 ####[facility] [address] [place], [address] RBC (Bld) [#/Vol] 4.05 10*6/uL Low 4.2-5.4 [facility] Comment on above: Performed By: #### L 100.0500, L500.2500 ####[facility] [address] [place], [address] RDW SD 45.1 fl High 35.1-43.9 [facility] Comment on above: Performed By: #### L 100.0500, L500.2500 ####[facility] [address] [place], [address] WBC (Bld) [#/Vol] 6.6 10*3/uL Normal 4.4-11.0 [facility] Comment on above: Performed By: #### L 100.0500, L500.2500 ####[facility] [address] [place], [address] [facility] BHARTIBEHZAD Lugo ([id number]) 1940 F Date Time Provider Department 08/30/24 TASHA DEUTSCH [facility] During your visit today, we recorded the following information about you: Tasha Deutsch APRN.[facility] 08/30/2024 12:45 PM Signed Patient was admitted August 22, 2024 and discharged on August 23, 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 Patient has a past history of chronic renal failure stage IV but recent labs show GFR of 74?, History of A-fib, osteoarthritis, hypertension who presents to the emergency room [facility] August 16 with complaints of [...] Transferred to the acute inpatient rehab at [facility] August 22. 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 Normal [facility] Basic Metabolic Profile (BMP )on 08-27-2024 BUN/CRE 22.9 RATIO High 10- [facility] Comment on above: Performed By: #### L 500.2500, L100.0600 ####[facility] [address] [place], [address] Calcium [Mass/Vol] 9.5 mg/dL Normal 7.6-11.0 [facility] Comment on above: Performed By: #### L 500.2500, L100.0600 ####[facility] [address] [place], [address] Chloride [Moles/Vol] 107 mmol/L Normal 98-108 [facility] Comment on above: Performed By: #### L 500.2500, L100.0600 ####[facility] [address] [place], [address] CO2 [Moles/Vol] 22.6 mmol/L Normal 21.0-32.0 [facility] Comment on above: Performed By: #### L 500.2500, L100.0600 ####[facility] [address] [place], [address] Creatinine [Mass/Vol] 0.90 mg/dL Normal 0.70-1.20 [facility] Comment on above: Performed By: #### L 500.2500, L100.0600 ####[facility] [address] [place], [address] ECRCL 38.86 ml/min Low 50-250 [facility] Comment on above: Performed By: #### L 500.2500, L100.0600 ####[facility] [address] [place], [address] GAP 12 Normal 5-15 [facility] Comment on above: Performed By: #### L 500.2500, L100.0600 ####[facility] [address] [place], [address] GFR/1.73 sq M.predicted among non-blacks MDRD (S/P/Bld) [Vol rate/Area] 63 mL/min/{1.73_m2} Normal >60 [facility] Comment on above: Result Comment: mL/m in/1.73m2 CKD-EPI Creatinine Equation (2020) Performed By: #### L 500.2500, L100.0600 ####[facility] [address] [place], [address] Glucose [Mass/Vol] 109 mg/dL High 70-99 [facility] Comment on above: Performed By: #### L 500.2500, L100.0600 ####[facility] [address] [place], [address] Potassium [Moles/Vol] 4.4 mmol/L Normal 3.3-5.1 [facility] Comment on above: Performed By: #### L 500.2500, L100.0600 ####[facility] [address] [place], [address] Sodium [Moles/Vol] 141 mmol/L Normal 133-145 [facility] Comment on above: Performed By: #### L 500.2500, L100.0600 ####[facility] [address] [place], [address] Urea nitrogen [Mass/Vol] 21 mg/dL High 4-19 [facility] Comment on above: Performed By: #### L 500.2500, L100.0600 ####[facility] [address] [place], [address] HH, Hemoglobin AND Hematocri ton 08-27-2024 Hematocrit (Bld) [Volume fraction] 40.8 % Normal 37-47 [facility] Comment on above: Performed By: #### L 500.2500, L100.0600 ####[facility] [address] [place], [address] Hemoglobin (Bld) [Mass/Vol] 13.3 g/dL Normal 12.0-15.0 [facility] Comment on above: Performed By: #### L 500.2500, L100.0600 ####[facility] [address] [place], [address] Stool Occult Blood iFOBon STOB Positive Normal [facility] Comment on above: Performed By: #### M 100.7900 ####[facility] [address] [place], [address] Stool gastrointestinal hemog lobin detection by immunologic methodOrdered By: Behzad Garciaalexus on 08-27-2024 Lower GI hemoglobin IA Ql (Stl) Positive Abnormal [facility] Bilirubin, totalOrdered By: Behzad Garciaalexus on 08-23-2024 Bilirubin [Mass/Vol] 0.23 mg/dL 0.00-1.30 [facility] CBC-Complete Blood Cnt No Di ffon 08-23-2024 Erythrocyte distribution width (RBC) [Ratio] 12.8 % Normal 11.6-14.6 [facility] Comment on above: Performed By: #### L 100.0500, L501.5200, L501.2300, L500.4050 ####[facility] [address] [place], [address] Hematocrit (Bld) [Volume fraction] 34.9 % Low 37-47 [facility] Comment on above: Performed By: #### L 100.0500, L501.5200, L501.2300, L500.4050 ####[facility] [address] [place], [address] Hemoglobin (Bld) [Mass/Vol] 10.9 g/dL Low 12.0-15.0 [facility] Comment on above: Performed By: #### L 100.0500, L501.5200, L501.2300, L500.4050 ####[facility] [address] [place], [address] MCH (RBC) [Entitic mass] 30.9 pg Normal 27.0-32.0 [facility] Comment on above: Performed By: #### L 100.0500, L501.5200, L501.2300, L500.4050 ####[facility] [address] [place], [address] MCHC (RBC) [Mass/Vol] 31.2 g/dL Low 32-36 [facility] Comment on above: Performed By: #### L 100.0500, L501.5200, L501.2300, L500.4050 ####[facility] [address] [place], [address] MCV (RBC) [Entitic vol] 98.9 fL Normal 81-99 [facility] Comment on above: Performed By: #### L 100.0500, L501.5200, L501.2300, L500.4050 ####[facility] [address] [place], [address] Platelet mean volume (Bld) [Entitic vol] 9.5 fL Normal 6.2-12.0 [facility] Comment on above: Performed By: #### L 100.0500, L501.5200, L501.2300, L500.4050 ####[facility] [address] [place], [address] Platelets (Bld) [#/Vol] 246 10*3/uL Normal 150-450 [facility] Comment on above: Performed By: #### L 100.0500, L501.5200, L501.2300, L500.4050 ####[facility] [address] [place], [address] RBC (Bld) [#/Vol] 3.53 10*6/uL Low 4.2-5.4 [facility] Comment on above: Performed By: #### L 100.0500, L501.5200, L501.2300, L500.4050 ####[facility] [address] [place], [address] RDW SD 46.1 fl High 35.1-43.9 [facility] Comment on above: Performed By: #### L 100.0500, L501.5200, L501.2300, L500.4050 ####[facility] [address] [place], [address] WBC (Bld) [#/Vol] 6.0 10*3/uL Normal 4.4-11.0 [facility] Comment on above: Performed By: #### L 100.0500, L501.5200, L501.2300, L500.4050 ####[facility] [address] [place], [address] [facility] TYLERBEHZAD JONES ([id number]) 1940 F Date Time Provider Department 08/23/24 TASHA DEUTSCH [facility] During your visit today, we recorded the following information about you: Tasha Deutsch, EAN.[facility] 08/23/2024 12:15 PM Signed Patient was discharged from [facility] on August 22, 2024 for [...] Rash MACROBID (NITROFURANTOIN MONOHYD/*09/25/2018 2 - Rash EFQDMFJ-BUP-VBL REDUCTASE INHIBIT*10/06/2014 5 - Intolerance Date Reviewed: 04/26/2024 Reviewed by: Tasha Deutsch APRN.PROPERTY ADJUSTER - Fully Assessed Primary Visit Diagnosis:Paroxysmal atrial [...] - FLAXS (more content not included)... Normal [facility] Metabolic Prof chayito 08-23-2024 Albumin [Mass/Vol] 3.4 g/dL Normal 3.4-4.8 [facility] Comment on above: Performed By: #### L 100.0500, L501.5200, L501.2300, L500.4050 ####[facility] [address] [place], [address] Albumin/Globulin [Mass ratio] 1.3 {ratio} Normal 0.9-2.4 [facility] Comment on above: Performed By: #### L 100.0500, L501.5200, L501.2300, L500.4050 ####[facility] [address] [place], [address] ALK PHOS 74 U/L Normal 35-104 [facility] Comment on above: Performed By: #### L 100.0500, L501.5200, L501.2300, L500.4050 ####[facility] [facility] [address] [place], [address] ALT [Catalytic activity/Vol] 18 U/L Normal <=34 [facility] Comment on above: Performed By: #### L 100.0500, L501.5200, L501.2300, L500.4050 ####[facility] [address] [place], [address] AST [Catalytic activity/Vol] 28 U/L Normal <=31 [facility] Comment on above: Performed By: #### L 100.0500, L501.5200, L501.2300, L500.4050 ####[facility] [address] [place], [address] Bilirubin [Mass/Vol] 0.23 mg/dL Normal 0.00-1.30 [facility] Comment on above: Performed By: #### L 100.0500, L501.5200, L501.2300, L500.4050 ####[facility] [address] [place], [address] BUN/CRE 29.6 RATIO High 10-20 [facility] Comment on above: Performed By: #### L 100.0500, L501.5200, L501.2300, L500.4050 ####[facility] [address] [place], [address] Calcium [Mass/Vol] 9.3 mg/dL Normal 7.6-11.0 [facility] Comment on above: Performed By: #### L 100.0500, L501.5200, L501.2300, L500.4050 ####[facility] [address] [place], [address] Chloride [Moles/Vol] 108 mmol/L Normal 98-108 [facility] Comment on above: Performed By: #### L 100.0500, L501.5200, L501.2300, L500.4050 ####[facility] [address] [place], [address] CO2 [Moles/Vol] 22.6 mmol/L Normal 21.0-32.0 [facility] Comment on above: Performed By: #### L 100.0500, L501.5200, L501.2300, L500.4050 ####[facility] [address] [place], [address] Creatinine [Mass/Vol] 0.78 mg/dL Normal 0.70-1.20 [facility] Comment on above: Performed By: #### L 100.0500, L501.5200, L501.2300, L500.4050 ####[facility] [address] [place], [address] ECRCL 39.92 ml/min Low 50-250 [facility] Comment on above: Performed By: #### L 100.0500, L501.5200, L501.2300, L500.4050 ####[facility] [address] [place], [address] GAP 10 Normal 5-15 [facility] Comment on above: Performed By: #### L 100.0500, L501.5200, L501.2300, L500.4050 ####[facility] [address] [place], [address] GFR/1.73 sq M.predicted among non-blacks MDRD (S/P/Bld) [Vol rate/Area] 74 mL/min/{1.73_m2} Normal >60 [facility] Comment on above: Result Comment: mL/m in/1.73m2 CKD-EPI Creatinine Equation (2020) Performed By: #### L 100.0500, L501.5200, L501.2300, L500.4050 ####[facility] [address] [place], [address] Globulin (S) [Mass/Vol] 2.6 g/dL Normal 2.2-4.2 [facility] Comment on above: Performed By: #### L 100.0500, L501.5200, L501.2300, L500.4050 ####[facility] [address] [place], [address] Glucose [Mass/Vol] 101 mg/dL High 70-99 [facility] Comment on above: Performed By: #### L 100.0500, L501.5200, L501.2300, L500.4050 ####[facility] [address] [place], [address] Potassium [Moles/Vol] 4.1 mmol/L Normal 3.3-5.1 [facility] Comment on above: Performed By: #### L 100.0500, L501.5200, L501.2300, L500.4050 ####[facility] [address] [place], [address] Sodium [Moles/Vol] 141 mmol/L Normal 133-145 [facility] Comment on above: Performed By: #### L 100.0500, L501.5200, L501.2300, L500.4050 ####[facility] [address] [place], [address] T PROT 6.0 g/dL Normal 5.9-8.4 [facility] Comment on above: Performed By: #### L 100.0500, L501.5200, L501.2300, L500.4050 ####[facility] [address] [place], [address] Urea nitrogen [Mass/Vol] 23 mg/dL High 4-19 [facility] Comment on above: Performed By: #### L 100.0500, L501.5200, L501.2300, L500.4050 ####[facility] [address] [place], [address] Culture, Blood (WB)on 2024 CUB Blood cultures x2, f rom two different sites No growth in 5 days. Normal [facility] Comment on above: Performed By: #### M 200.1000 ####[facility] [address] [place], [address] Laboratory - Chemistry and C hemistry - challengeOrdered By: Behzad Dorado on 08-23-2024 AST [Catalytic activity/Vol] 28 U/L <32 [facility] Magnesiumon 08-23-2024 Magnesium [Mass/Vol] 2.1 mg/dL Normal 1.5-2.2 [facility] Comment on above: Performed By: #### L 100.0500, L501.5200, L501.2300, L500.4050 ####[facility] [address] [place], [address] Magnesium measurement (mass/ volume)Ordered By: Behzad Dorado on 08-23-2024 Magnesium (Unsp spec) [Mass/Vol] 2.1 mg/dL 1.5-2.2 [facility] Phosphoruson 08-23-2024 Phosphate [Mass/Vol] 3.9 mg/dL Normal 2.7-4.5 [facility] Comment on above: Performed By: #### L 100.0500, L501.5200, L501.2300, L500.4050 ####[facility] [address] [place], [place], [address] Serum globulin measurementOr dered By: Behzad Estrada on 08-23-2024 Globulin (S) [Mass/Vol] 2.6 g/dL 2.2-4.2 [facility] Serum or plasma alanine tierney otransferase (ALT) measurementOrdered By: Behzad Dorado on 08-23-2024 ALT [Catalytic activity/Vol] 18 U/L <35 [facility] Serum or plasma albumin camilo urement (mass/volume)Ordered By: Behzad Estrada on 08-23-2024 Albumin [Mass/Vol] 3.4 g/dL 3.4-4.8 [facility] Serum or plasma albumin/glob ulin mass ratioOrdered By: Behzad [facility] on 08-23-2024 Albumin/Globulin [Mass ratio] 1.3 {ratio} 0.9-2.4 [facility] Serum or plasma alkaline jordan sphatase measurementOrdered By: Behzad Estrada on 08-23-2024 ALP [Catalytic activity/Vol] 74 U/L 35-104 [facility] Total proteinOrdered By: Maday Dorado on 08-23-2024 Protein [Mass/Vol] 6.0 g/dL 5.9-8.4 [facility] Vitamin D,25 Hydroxyon 08-23 Vitamin D 25-OH 35.6 ng/mL Normal 30-100 [facility] Comment on above: Result Comment: Tati min D StatusDeficiency: <20 ng/mL (50nmol/L)Insufficiency: 20-30 ng/mL (50-75 nmol/L)Sufficiency: 30-100 ng/mL (75-250 nmol/L)Toxicity: >100 ng/mL (>250 nmol/L) Performed By: #### L 506.1001 ####[facility] [address] [place], [address] Anion gap in Serum or Plasma Ordered By: Mara Mar on 08-22-2024 Anion gap [Moles/Vol] 9 mmol/L 5-15 [facility] BUN/creatinine ratioOrdered By: Mara Mar on 08-22-2024 Urea nitrogen/Creatinine [Mass ratio] 39.3 mg/mg High - [facility] Basic Metabolic Profile (BMP )on 08-22-2024 BUN/CRE 39.3 RATIO High - [facility] Comment on above: Performed By: #### L 100.0500, L500.2500 ####[facility] [address] [place], [address] Calcium [Mass/Vol] 9.1 mg/dL Normal 7.6-11.0 [facility] Comment on above: Performed By: #### L 100.0500, L500.2500 ####[facility] [address] [place], [address] Chloride [Moles/Vol] 111 mmol/L High 98-108 [facility] Comment on above: Performed By: #### L 100.0500, L500.2500 ####[facility] [address] [place], [address] CO2 [Moles/Vol] 22.3 mmol/L Normal 21.0-32.0 [facility] Comment on above: Performed By: #### L 100.0500, L500.2500 ####[facility] [address] [place], [address] Creatinine [Mass/Vol] 0.78 mg/dL Normal 0.70-1.20 [facility] Comment on above: Performed By: #### L 100.0500, L500.2500 ####[facility] [address] [place], [address] ECRCL 39.92 ml/min Low 50-250 [facility] Comment on above: Performed By: #### L 100.0500, L500.2500 ####[facility] [address] [place], [address] GAP 9 Normal 5-15 [facility] Comment on above: Performed By: #### L 100.0500, L500.2500 ####[facility] [address] [place], [address] GFR/1.73 sq M.predicted among non-blacks MDRD (S/P/Bld) [Vol rate/Area] 74 mL/min/{1.73_m2} Normal >60 [facility] Comment on above: Result Comment: mL/m in/1.73m2 CKD-EPI Creatinine Equation (2020) Performed By: #### L 100.0500, L500.2500 ####[facility] [address] [place], [address] Glucose [Mass/Vol] 96 mg/dL Normal 70-99 [facility] Comment on above: Performed By: #### L 100.0500, L500.2500 ####[facility] [address] [place], [address] Potassium [Moles/Vol] 4.1 mmol/L Normal 3.3-5.1 [facility] Comment on above: Performed By: #### L 100.0500, L500.2500 ####[facility] [address] [place], [address] Sodium [Moles/Vol] 142 mmol/L Normal 133-145 [facility] Comment on above: Performed By: #### L 100.0500, L500.2500 ####[facility] [address] [place], [address] Urea nitrogen [Mass/Vol] 31 mg/dL High 4-19 [facility] Comment on above: Performed By: #### L 100.0500, L500.2500 ####[facility] [address] [place], [address] CBC-Complete Blood Cnt No Di ffon 08-22-2024 Erythrocyte distribution width (RBC) [Ratio] 13.1 % Normal 11.6-14.6 [facility] Comment on above: Performed By: #### L 100.0500, L500.2500 ####[facility] [address] [place], [address] Hematocrit (Bld) [Volume fraction] 34.7 % Low 37-47 [facility] Comment on above: Performed By: #### L 100.0500, L500.2500 ####[facility] [address] [place], [address] Hemoglobin (Bld) [Mass/Vol] 11.0 g/dL Low 12.0-15.0 [facility] Comment on above: Performed By: #### L 100.0500, L500.2500 ####[facility] [address] [place], [address] MCH (RBC) [Entitic mass] 31.3 pg Normal 27.0-32.0 [facility] Comment on above: Performed By: #### L 100.0500, L500.2500 ####[facility] [address] [place], [address] MCHC (RBC) [Mass/Vol] 31.7 g/dL Low 32-36 [facility] Comment on above: Performed By: #### L 100.0500, L500.2500 ####[facility] [address] [place], [address] MCV (RBC) [Entitic vol] 98.6 fL Normal 81-99 [facility] Comment on above: Performed By: #### L 100.0500, L500.2500 ####[facility] [address] [place], [address] Platelet mean volume (Bld) [Entitic vol] 9.6 fL Normal 6.2-12.0 [facility] Comment on above: Performed By: #### L 100.0500, L500.2500 ####[facility] [address] [place], [address] Platelets (Bld) [#/Vol] 245 10*3/uL Normal 150-450 [facility] Comment on above: Performed By: #### L 100.0500, L500.2500 ####[facility] [address] [place], [address] RBC (Bld) [#/Vol] 3.52 10*6/uL Low 4.2-5.4 [facility] Comment on above: Performed By: #### L 100.0500, L500.2500 ####[facility] [address] [place], [address] RDW SD 47.0 fl High 35.1-43.9 [facility] Comment on above: Performed By: #### L 100.0500, L500.2500 ####[facility] [address] [place], [address] WBC (Bld) [#/Vol] 5.7 10*3/uL Normal 4.4-11.0 [facility] Comment on above: Performed By: #### L 100.0500, L500.2500 ####[facility] [address] [place], [address] Carbon dioxide, total [Moles /volume] in Central venous bloodOrdered By: Mara Mar on 08-22-2024 CO2 [Moles/Vol] 22.3 mmol/L 21.0-32.0 [facility] Chloride assayOrdered By: Akosua Mar on 08-22-2024 Chloride [Moles/Vol] 111 mmol/L High 98-108 [facility] Erythrocyte distribution wid th ratioOrdered By: Mara Mar on 08-22-2024 Erythrocyte distribution width (RBC) [Ratio] 13.1 % 11.6-14.6 [facility] Erythrocyte distribution wid th standard deviationOrdered By: Mara Mar on 08-22-2024 Erythrocyte distribution width (RBC) [Ratio] 47.0 fl High 35.1-43.9 [facility] Glomerular filtration rate ( GFR) estimation/1.73 sq m using serum, plasma, or whole bOrdered By: Mara Mar on 08-22-2024 GFR/1.73 sq M.predicted among non-blacks MDRD (S/P/Bld) [Vol rate/Area] 74 mL/min/{1.73_m2} >60 [facility] Comment on above: mL/min/1.73m2 CKD-EP I Creatinine Equation (2020) Hematocrit Auto (Bld) [Volum e fraction]Ordered By: Mara Mar on 08-22-2024 Hematocrit (Bld) [Volume fraction] 34.7 % Low 37-47 [facility] Hemoglobin measurementOrdere d By: Mara Mar on 08-22-2024 Hemoglobin (Bld) [Mass/Vol] 11.0 g/dL Low 12.0-15.0 [facility] MCV (mean corpuscular volume ) determinationOrdered By: Mara Mar on 08-22-2024 MCV (RBC) [Entitic vol] 98.6 fL 81-99 [facility] Mean corpuscular hemoglobin (MCH) determinationOrdered By: Mara Mar on 08-22-2024 MCH (RBC) [Entitic mass] 31.3 pg 27.0-32.0 [facility] Mean corpuscular hemoglobin concentration (MCHC) determinationOrdered By: Mara Mar on 08-22-2024 MCHC (RBC) [Mass/Vol] 31.7 g/dL Low 32-36 [facility] Mean platelet volume determi nationOrdered By: Mara Mar on 08-22-2024 Platelet mean volume (Bld) [Entitic vol] 9.6 fL 6.2-12.0 [facility] Platelet countOrdered By: Akosua Mar on 08-22-2024 Platelets (Bld) [#/Vol] 245 10*3/uL 150-450 [facility] Potassium measurement (mass/ volume)Ordered By: Mara Mar on 08-22-2024 Potassium (Unsp spec) [Mass/Vol] 4.1 mmol/L 3.3-5.1 [facility] RBC Auto (Bld) [#/Vol]Ordere d By: Mara Mar on 08-22-2024 RBC (Bld) [#/Vol] 3.52 10*6/uL Low 4.2-5.4 [facility] Serum creatinine measurement (mass/volume)Ordered By: Mara Mar on 08-22-2024 Creatinine [Mass/Vol] 0.78 mg/dL 0.70-1.20 [facility] Serum glucose measurement (m ass/volume)Ordered By: Mara Mar on 08-22-2024 Glucose [Mass/Vol] 96 mg/dL 70-99 [facility] Serum or plasma calcium camilo urement (mass/volume)Ordered By: Mara Mar on 08-22-2024 Calcium [Mass/Vol] 9.1 mg/dL 7.6-11.0 [facility] Serum or plasma urea nitroge n measurement (mass/volume)Ordered By: Mara Mar on 08-22-2024 Urea nitrogen [Mass/Vol] 31 mg/dL High 4-19 [facility] Sodium levelOrdered By: Eliana Mar on 08-22-2024 Sodium [Moles/Vol] 142 mmol/L 133-145 [facility] White blood cell (WBC) count Ordered By: Mara Mar on 08-22-2024 WBC (Bld) [#/Vol] 5.7 10*3/uL 4.4-11.0 [facility] Electrocardiogram reportOrde red By: Swapnil Balderrama on 08-20-2024 EKG study [facility] [address] [place] [address] 12 Lead EKG 08/18/24 1103 MR#: [id number] Acct: [id number] Name: BEHZAD HAY Rep #:[id number] : 1940 84 From: Swapnil granados MD Attending Dr: Dr. Mara Mar, DO S tatus: ADM IN Ordering Dr: Fawad Cordon DO Date: 0 08/18/24 Location: [facility] Sex: F C Admitted: 08/18/24 Test Reason : Blood Pressure : */* mmHG Vent. Rate : 72 BPM Atrial Rate : 72 BPM P-R Int : 152 ms QRS Dur : 82 ms QT Int : 410 ms P-R-T Axes : 28 -2 5 degrees QTcB Int : 448 ms Normal sinus rhythm Normal ECG Confirmed by Swapnil Balderrama ([id number]), assignment desk editor LOVELY RAMSEY ([id number]) on 08/20/2024 12:21:07 PM Referred By: Confirmed By: Swapnil Balderrama 08/20/24 1221 Date _ Swapnil Balderrama MD CC: GARFIELD Deutsch; Dr. Fawad Cordon DO; Dr. Mara Mar DO ~ Signed [facility] Other Phone: Urine Cultureon 08-20-2024 URC Normal [facility] Comment on above: Performed By: #### M 100.2200 ####[facility] [address] [place], [address] Absolute lymphocyte countOrd ered By: Mara Mar on 08-19-2024 Lymphocytes Auto (Unsp spec) [#/Vol] 1.07 10*3/uL 0.83-4.51 [facility] Absolute neutrophil countOrd ered By: Mara Mar on 08-19-2024 Neutrophils (Bld) [#/Vol] 4.0 10*3/uL 2.0-7.7 [facility] Automated lymphocyte count a s percentage of total leukocytesOrdered By: Mara Mar on 08-19-2024 Lymphocytes/100 WBC Auto (Unsp spec) 18.3 % Low 19-41 [facility] Basophil percentageOrdered B y: Mara Mar on 08-19-2024 Basophils/100 WBC (Bld) 1.2 % High 0-1 [facility] Bilirubin, totalOrdered By: Mara Mar on 08-19-2024 Bilirubin [Mass/Vol] 0.36 mg/dL 0.00-1.30 [facility] CBC W/Diff, Automatedon 05-0 -2024 Absolute Lymph 1.07 X10 3/uL Normal 0.83-4.51 [facility] Comment on above: Performed By: #### L 501.9520, L501.2300, L100.0100, L500.4050, L500.4100, L501.5200 ####[facility] [address] [place], [address] Absolute Neut 4.0 X10 3/uL Normal 2.0-7.7 [facility] Comment on above: Performed By: #### L 501.9520, L501.2300, L100.0100, L500.4050, L500.4100, L501.5200 ####[facility] [address] [place], [address] Basophils/100 WBC (Bld) 1.2 % High 0-1 [facility] Comment on above: Performed By: #### L 501.9520, L501.2300, L100.0100, L500.4050, L500.4100, L501.5200 ####[facility] [address] [place], [address] Eosinophils/100 WBC (Bld) 3.9 % Normal 0-5 [facility] Comment on above: Performed By: #### L 501.9520, L501.2300, L100.0100, L500.4050, L500.4100, L501.5200 ####[facility] [address] [place], [address] Erythrocyte distribution width (RBC) [Ratio] 13.1 % Normal 11.6-14.6 [facility] Comment on above: Performed By: #### L 501.9520, L501.2300, L100.0100, L500.4050, L500.4100, L501.5200 ####[facility] [address] [place], [address] Hematocrit (Bld) [Volume fraction] 36.9 % Low 37-47 [facility] Comment on above: Performed By: #### L 501.9520, L501.2300, L100.0100, L500.4050, L500.4100, L501.5200 ####[facility] [address] [place], [address] Hemoglobin (Bld) [Mass/Vol] 11.8 g/dL Low 12.0-15.0 [facility] Comment on above: Performed By: #### L 501.9520, L501.2300, L100.0100, L500.4050, L500.4100, L501.5200 ####[facility] [address] [place], [address] IG% 0.300 Normal 0.0-0.9 [facility] Comment on above: Result Comment: IG% - Immature Granulocytes (promyelocytes, myelocytes andmetamyelocytes) > 1% indicates that a LEFT SHIFT is Present. Performed By: #### L 501.9520, L501.2300, L100.0100, L500.4050, L500.4100, L501.5200 ####[facility] [address] [place], [address] Lymphocytes/100 WBC (Bld) 18.3 % Low 19-41 [facility] Comment on above: Performed By: #### L 501.9520, L501.2300, L100.0100, L500.4050, L500.4100, L501.5200 ####[facility] [address] [place], [address] MCH (RBC) [Entitic mass] 31.0 pg Normal 27.0-32.0 [facility] Comment on above: Performed By: #### L 501.9520, L501.2300, L100.0100, L500.4050, L500.4100, L501.5200 ####[facility] [address] [place], [address] MCHC (RBC) [Mass/Vol] 32.0 g/dL Normal 32-36 [facility] Comment on above: Performed By: #### L 501.9520, L501.2300, L100.0100, L500.4050, L500.4100, L501.5200 ####[facility] [address] [place], [address] MCV (RBC) [Entitic vol] 96.9 fL Normal 81-99 [facility] Comment on above: Performed By: #### L 501.9520, L501.2300, L100.0100, L500.4050, L500.4100, L501.5200 ####[facility] [address] [place], [address] Monocytes/100 WBC (Bld) 8.5 % Normal 0-10 [facility] Comment on above: Performed By: #### L 501.9520, L501.2300, L100.0100, L500.4050, L500.4100, L501.5200 ####[facility] [address] [place], [address] Neutrophils/100 WBC (Bld) 67.8 % Normal 47-70 [facility] Comment on above: Performed By: #### L 501.9520, L501.2300, L100.0100, L500.4050, L500.4100, L501.5200 ####[facility] [address] [place], [address] Nucleated RBC (Bld) [#/Vol] 0 10*3/uL Normal 0-5 [facility] Comment on above: Performed By: #### L 501.9520, L501.2300, L100.0100, L500.4050, L500.4100, L501.5200 ####[facility] [address] [place], [address] Platelet mean volume (Bld) [Entitic vol] 8.9 fL Normal 6.2-12.0 [facility] Comment on above: Performed By: #### L 501.9520, L501.2300, L100.0100, L500.4050, L500.4100, L501.5200 ####[facility] [address] [place], [address] Platelets (Bld) [#/Vol] 237 10*3/uL Normal 150-450 [facility] Comment on above: Performed By: #### L 501.9520, L501.2300, L100.0100, L500.4050, L500.4100, L501.5200 ####[facility] [address] [place], [address] RBC (Bld) [#/Vol] 3.81 10*6/uL Low 4.2-5.4 [facility] Comment on above: Performed By: #### L 501.9520, L501.2300, L100.0100, L500.4050, L500.4100, L501.5200 ####[facility] [address] [place], [address] RDW SD 46.8 fl High 35.1-43.9 [facility] Comment on above: Performed By: #### L 501.9520, L501.2300, L100.0100, L500.4050, L500.4100, L501.5200 ####[facility] [address] [place], [address] WBC (Bld) [#/Vol] 5.9 10*3/uL Normal 4.4-11.0 [facility] Comment on above: Performed By: #### L 501.9520, L501.2300, L100.0100, L500.4050, L500.4100, L501.5200 ####[facility] [address] [place], [address] Calculated very low density lipoprotein (VLDL) cholesterol measurementOrdered By: Mara Mar on 08-19-2024 Calculated very low density lipoprotein (VLDL) cholesterol measurement 15 mg/dL 5-40 [facility] Comprehensive Metabolic Prof ilon 08-19-2024 Albumin [Mass/Vol] 3.7 g/dL Normal 3.4-4.8 [facility] Comment on above: Order Comment: Comme nts: NPO at [place] prior to lipid panel Performed By: #### L 501.9520, L501.2300, L100.0100, L500.4050, L500.4100, L501.5200 ####[facility] [address] [place], [address] Albumin/Globulin [Mass ratio] 1.4 {ratio} Normal 0.9-2.4 [facility] Comment on above: Order Comment: Comme nts: NPO at [place] prior to lipid panel Performed By: #### L 501.9520, L501.2300, L100.0100, L500.4050, L500.4100, L501.5200 ####[facility] [address] [place], [address] ALK PHOS 70 U/L Normal 35-104 [facility] Comment on above: Order Comment: Comme nts: NPO at [place] prior to lipid panel Performed By: #### L 501.9520, L501.2300, L100.0100, L500.4050, L500.4100, L501.5200 ####[facility] [address] [place], [address] ALT [Catalytic activity/Vol] 18 U/L Normal <=34 [facility] Comment on above: Order Comment: Comme nts: NPO at [place] prior to lipid panel Performed By: #### L 501.9520, L501.2300, L100.0100, L500.4050, L500.4100, L501.5200 ####[facility] [address], [address] AST [Catalytic activity/Vol] 33 U/L High <=31 [facility] Comment on above: Order Comment: Comme nts: NPO at [place] prior to lipid panel Performed By: #### L 501.9520, L501.2300, L100.0100, L500.4050, L500.4100, L501.5200 ####[facility] [address] [place], [address] Bilirubin [Mass/Vol] 0.36 mg/dL Normal 0.00-1.30 [facility] Comment on above: Order Comment: Comme nts: NPO at [place] prior to lipid panel Performed By: #### L 501.9520, L501.2300, L100.0100, L500.4050, L500.4100, L501.5200 ####[facility] [address] [place], [address] BUN/CRE 20.6 RATIO High 10-20 [facility] Comment on above: Order Comment: Comme nts: NPO at [place] prior to lipid panel Performed By: #### L 501.9520, L501.2300, L100.0100, L500.4050, L500.4100, L501.5200 ####[facility] [address] [place], [address] Calcium [Mass/Vol] 9.1 mg/dL Normal 7.6-11.0 [facility] Comment on above: Order Comment: Comme nts: NPO at [place] prior to lipid panel Performed By: #### L 501.9520, L501.2300, L100.0100, L500.4050, L500.4100, L501.5200 ####[facility] [address] [place], [address] Chloride [Moles/Vol] 106 mmol/L Normal 98-108 [facility] Comment on above: Order Comment: Comme nts: NPO at [place] prior to lipid panel Performed By: #### L 501.9520, L501.2300, L100.0100, L500.4050, L500.4100, L501.5200 ####[facility] [address] [place], [address] CO2 [Moles/Vol] 23.7 mmol/L Normal 21.0-32.0 [facility] Comment on above: Order Comment: Comme nts: NPO at [place] prior to lipid panel Performed By: #### L 501.9520, L501.2300, L100.0100, L500.4050, L500.4100, L501.5200 ####[facility] [address] [place], [address] Creatinine [Mass/Vol] 0.84 mg/dL Normal 0.70-1.20 [facility] Comment on above: Order Comment: Comme nts: NPO at [place] prior to lipid panel Performed By: #### L 501.9520, L501.2300, L100.0100, L500.4050, L500.4100, L501.5200 ####[facility] [address] [place], [address] ECRCL 38.02 ml/min Low 50-250 [facility] Comment on above: Order Comment: Comme nts: NPO at [place] prior to lipid panel Performed By: #### L 501.9520, L501.2300, L100.0100, L500.4050, L500.4100, L501.5200 ####[facility] [address] [place], [address] GAP 10 Normal 5-15 [facility] Comment on above: Order Comment: Comme nts: NPO at [place] prior to lipid panel Performed By: #### L 501.9520, L501.2300, L100.0100, L500.4050, L500.4100, L501.5200 ####[facility] [address] [place], [address] GFR/1.73 sq M.predicted among non-blacks MDRD (S/P/Bld) [Vol rate/Area] 68 mL/min/{1.73_m2} Normal >60 [facility] Comment on above: Order Comment: Comme nts: NPO at [place] prior to lipid panel Result Comment: mL/m in/1.73m2 CKD-EPI Creatinine Equation (2020) Performed By: #### L 501.9520, L501.2300, L100.0100, L500.4050, L500.4100, L501.5200 ####[facility] [address] [place], [address] Globulin (S) [Mass/Vol] 2.6 g/dL Normal 2.2-4.2 [facility] Comment on above: Order Comment: Comme nts: NPO at MN prior to lipid panel Performed By: #### L 501.9520, L501.2300, L100.0100, L500.4050, L500.4100, L501.5200 ####[facility] [address] [place], [address] Glucose [Mass/Vol] 102 mg/dL High 70-99 [facility] Comment on above: Order Comment: Comme nts: NPO at [place] prior to lipid panel Performed By: #### L 501.9520, L501.2300, L100.0100, L500.4050, L500.4100, L501.5200 ####[facility] [address] [place], [address] Potassium [Moles/Vol] 4.3 mmol/L Normal 3.3-5.1 [facility] Comment on above: Order Comment: Comme nts: NPO at [place] prior to lipid panel Performed By: #### L 501.9520, L501.2300, L100.0100, L500.4050, L500.4100, L501.5200 ####[facility] [address] [place], [address] Sodium [Moles/Vol] 140 mmol/L Normal 133-145 [facility] Comment on above: Order Comment: Comme nts: NPO at [place] prior to lipid panel Performed By: #### L 501.9520, L501.2300, L100.0100, L500.4050, L500.4100, L501.5200 ####[facility] [address] [place], [address] T PROT 6.3 g/dL Normal 5.9-8.4 [facility] Comment on above: Order Comment: Comme nts: NPO at [place] prior to lipid panel Performed By: #### L 501.9520, L501.2300, L100.0100, L500.4050, L500.4100, L501.5200 ####[facility] [address] [place], [address] Urea nitrogen [Mass/Vol] 17 mg/dL Normal 4-19 [facility] Comment on above: Order Comment: Comme nts: NPO at [place] prior to lipid panel Performed By: #### L 501.9520, L501.2300, L100.0100, L500.4050, L500.4100, L501.5200 ####[facility] [address] [place], [address] Echocardiogram study reportO rdered By: Cricket Leyva on 08-19-2024 Study report [facility] [address] [place] [address] Echo Complete 08/19/24 0944 MR#: [id number] Acct: [id number] Name: BEHZAD HAY Rep #:[id number] : 1940 84 From: Cricket Leyva MD Attending Dr: DO Brittney Feliz tatus: ADM IN Ordering Dr: Mara Mar DO Date: 11/05 Location: [facility] Sex: F C Admitted: 08/18/24 Reason [...] ~ Date Dictated: 08/19/24943 Date Transcribed: 08/19/241214 Jigmaker: Signed [facility] Work Phone: Eosinophil percentageOrdered By: Mara Mar on 08-19-2024 Eosinophils/100 WBC (Bld) 3.9 % 0-5 [facility] Immature granulocytes/100 WB C Auto (Bld)Ordered By: Mara Mar on 08-19-2024 Immature granulocytes/100 WBC (Bld) 0.300 % 0.0-0.9 [facility] Comment on above: IG% - Immature Granu locytes (promyelocytes, myelocytes and metamyelocytes) > 1% indicates that a LEFT SHIFT is Present. LDL calc ser/plasOrdered By: Mara Mar on 08-19-2024 Cholesterol in LDL [Mass/Vol] 112 mg/dL [facility] Comment on above: Przxuqsfqz=146-227 m g/dL & Higher Nlrq=335 mg/dL or greater Laboratory - Chemistry and C hemistry - challengeOrdered By: Mara Mar on 08-19-2024 AST [Catalytic activity/Vol] 33 U/L High <32 [facility] Lipid Profileon 08-19-2024 CHOL:HDL 3.03 Normal [facility] Comment on above: Order Comment: Comme nts: NPO at [place] prior to lipid panel Performed By: #### L 501.9520, L501.2300, L100.0100, L500.4050, L500.4100, L501.5200 ####[facility] [address] [place], [address] Cholesterol [Mass/Vol] 189 mg/dL Normal <=200 [facility] Comment on above: Order Comment: Comme nts: NPO at [place] prior to lipid panel Result Comment: Chol esterol level, Desirable <200 mg/dLBorderline high cholesterol 200-239 mg/dLHigh cholesterol >=240 mg/dLRecommendations of the NCEP Adult Treatment Panel for thefollowing risk-cutoff thresholds for the [place] Americanpulation. Performed By: #### L 501.9520, L501.2300, L100.0100, L500.4050, L500.4100, L501.5200 ####[facility] [address] [place], [place], [phone] Cholesterol in HDL [Mass/Vol] 62 mg/dL Normal [facility] Comment on above: Order Comment: Comme nts: NPO at [place] prior to lipid panel Result Comment: Jo onal Cholesterol Education Program (NCEP) guidelines:<40 mg/dL: Low HDL-cholesterol (major risk factor for CHD)>= 60 mg/dL: High HDL-cholesterol (negative risk factor forCHD)HDL-cholesterol is affected by a number of factors, e.g.smoking, exercise, hormones, sex and age. Performed By: #### L 501.9520, L501.2300, L100.0100, L500.4050, L500.4100, L501.5200 ####[facility] [address] [place], [address] Cholesterol in LDL [Mass/Vol] 112 mg/dL Normal [facility] Comment on above: Order Comment: Comme nts: NPO at [place] prior to lipid panel Result Comment: Bord sskeyp=672-054 mg/dL Higher Vraf=908 mg/dL or greater Performed By: #### L 501.9520, L501.2300, L100.0100, L500.4050, L500.4100, L501.5200 ####[facility] [address] [place], [place], [phone] Cholesterol in VLDL [Mass/Vol] 15 mg/dL Normal 5-40 [facility] Comment on above: Order Comment: Comme nts: NPO at [place] prior to lipid panel Performed By: #### L 501.9520, L501.2300, L100.0100, L500.4050, L500.4100, L501.5200 ####[facility] [address] [place], [address] Triglyceride [Mass/Vol] 75 mg/dL Normal [facility] Comment on above: Order Comment: Comme nts: NPO at [place] prior to lipid panel Result Comment: The drugs N-Acetylcysteine and Metamizole may falselydepress this assay.Normal range: <150 mg/dLBorderline High: 150-199 mg/dLHigh: 200-499 mg/dLVery High: >500 mg/dL Performed By: #### L 501.9520, L501.2300, L100.0100, L500.4050, L500.4100, L501.5200 ####[facility] [address] [place], [address] MR/CON.PCM.NEon 08-19-2024 MR/CON.PCM.NE Normal [facility] Magnesiumon 08-19-2024 Magnesium [Mass/Vol] 2.3 mg/dL High 1.5-2.2 [facility] Comment on above: Order Comment: Comme nts: NPO at [place] prior to lipid panel Performed By: #### L 501.9520, L501.2300, L100.0100, L500.4050, L500.4100, L501.5200 ####[facility] [address] [place], [place], [phone] Magnesium measurement (mass/ volume)Ordered By: Mara Mar on 08-19-2024 Magnesium (Unsp spec) [Mass/Vol] 2.3 mg/dL High 1.5-2.2 [facility] Monocyte percentageOrdered B y: Mara Mar on 08-19-2024 Monocytes/100 WBC (Bld) 8.5 % 0-10 [facility] Neutrophil percentageOrdered By: Mara Mar on 08-19-2024 Neutrophils/100 WBC (Bld) 67.8 % 47-70 [facility] Nucleated red blood cell per centageOrdered By: Mara Mar on 08-19-2024 Nucleated RBC/100 WBC (Bld) [Ratio] 0 % 0-5 [facility] Phosphoruson 08-19-2024 Phosphate [Mass/Vol] 3.2 mg/dL Normal 2.7-4.5 [facility] Comment on above: Order Comment: Comme nts: NPO at [place] prior to lipid panel Performed By: #### L 501.9520, L501.2300, L100.0100, L500.4050, L500.4100, L501.5200 ####[facility] [address] [place], [address] Screening total cholesterol/ high density lipoprotein (HDL) cholesterol ratioOrdered By: Mara Mar on 08-19-2024 Cholesterol.total/Cho lesterol in HDL [Mass ratio] 3.03 {ratio} [facility] Serum globulin measurementOr dered By: Mara Mar on 08-19-2024 Globulin (S) [Mass/Vol] 2.6 g/dL 2.2-4.2 [facility] Serum or plasma alanine tierney otransferase (ALT) measurementOrdered By: Mara Mar on 08-19-2024 ALT [Catalytic activity/Vol] 18 U/L <35 [facility] Serum or plasma albumin camilo urement (mass/volume)Ordered By: Mara Mar on 08-19-2024 Albumin [Mass/Vol] 3.7 g/dL 3.4-4.8 [facility] Serum or plasma albumin/glob ulin mass ratioOrdered By: Mraa Mar on 08-19-2024 Albumin/Globulin [Mass ratio] 1.4 {ratio} 0.9-2.4 [facility] Serum or plasma alkaline jordan sphatase measurementOrdered By: Mara Mar on 08-19-2024 ALP [Catalytic activity/Vol] 70 U/L 35-104 [facility] Serum or plasma cholesterol in HDL measurement (mass/volume)Ordered By: Mara Mar on 08-19-2024 Cholesterol in HDL [Mass/Vol] 62 mg/dL >40 [facility] Comment on above: National Cholesterol Education Program (NCEP) guidelines:<40 mg/dL: Low HDL-cholesterol (major risk factor for CHD)>= 60 mg/dL: High HDL-cholesterol (negative risk factor for CHD)HDL-cholesterol is affected by a number of factors, e.g. smoking, exercise, hormones, sex and age. Serum or plasma cholesterol measurement (mass/volume)Ordered By: Mara Mar on 08-19-2024 Cholesterol [Mass/Vol] 189 mg/dL <201 [facility] Comment on above: Cholesterol level, D esirable <200 mg/dLBorderline high cholesterol 200-239 mg/dLHigh cholesterol >=240 mg/dLRecommendations of the NCEP Adult Treatment Panel for the following risk-cutoff thresholds for the [place] population. TSH DL <= 0.005 mIU/L QnOrde red By: Mara Mar on 08-19-2024 TSH Qn 1.590 uIU/mL 0.300-4.20 0 [facility] Thyroid Stim Hormone (TSH)on 08-19-2024 TSH 1.590 uIU/mL Normal 0.300-4.20 0 [facility] Comment on above: Order Comment: Comme nts: NPO at [place] prior to lipid panel Performed By: #### L 501.9520, L501.2300, L100.0100, L500.4050, L500.4100, L501.5200 ####[facility] [address] [place], [address] Total proteinOrdered By: Randa Mar on 08-19-2024 Protein [Mass/Vol] 6.3 g/dL 5.9-8.4 [facility] Triglycerides measurementOrd ered By: Mara Mar on 08-19-2024 Triglyceride [Mass/Vol] 75 mg/dL <199 [facility] Comment on above: The drugs N-Acetylcy steine and Metamizole may falsely depress this assay. Normal range: <150 mg/dLBorderline High: 150-199 mg/dLHigh: 200-499 mg/dLVery High: >500 mg/dL 12 Lead EKGon 08-18-2024 12 Lead EKG Normal [facility] Absolute lymphocyte countOrd ered By: Fawad Cordon on 08-18-2024 Lymphocytes Auto (Unsp spec) [#/Vol] 0.91 10*3/uL 0.83-4.51 [facility] Absolute neutrophil countOrd ered By: Fawad Cordon on 08-18-2024 Neutrophils (Bld) [#/Vol] 6.6 10*3/uL 2.0-7.7 [facility] Activated partial thrombopla stin time (aPTT) in platelet poor plasma by coagulation aOrdered By: Fawad Cordon on 08-18-2024 aPTT Coag (PPP) [Time] 24.6 s 24.1-36.2 [facility] Alcohol, Blood (Medical)-Ser umon 08-18-2024 SERUM ETOH < 10.1 Normal <=10.0 [facility] Comment on above: Result Comment: This test is for medical purposes only. The legaldefinition of intoxication varies according to local law. Performed By: #### L 500.2500, L505.5000, L500.3400, L100.0100, L300.3900, L300.4310, L501.9100 ####[facility] [address] [place], [address] Amphetamine detection with 1 000 ng/mL as cutoffOrdered By: Fawad Cordon on 08-18-2024 Amphetamines Screen method >1000 ng/mL Ql (U) Negative < 200 ng/mL [facility] Anion gap in Serum or Plasma Ordered By: Fawad Cordon on 08-18-2024 Anion gap [Moles/Vol] 11 mmol/L 5-15 [facility] Automated lymphocyte count a s percentage of total leukocytesOrdered By: Fawad Cordon on 08-18-2024 Lymphocytes/100 WBC Auto (Unsp spec) 10.9 % Low 19-41 [facility] BUN/creatinine ratioOrdered By: Fawad Cordon on 08-18-2024 Urea nitrogen/Creatinine [Mass ratio] 27.4 mg/mg [address] [facility] Basic Metabolic Profile (BMP )on 08-18-2024 BUN/CRE 27.[address] Comment on above: Performed By: #### L 500.2500, L505.5000, L500.3400, L100.0100, L300.3900, L300.4310, L501.9100 ####[facility] [address] [place], [address] Calcium [Mass/Vol] 10.0 mg/dL Normal 7.6-11.0 [facility] Comment on above: Performed By: #### L 500.2500, L505.5000, L500.3400, L100.0100, L300.3900, L300.4310, L501.9100 ####[facility] [address] [place], [address] Chloride [Moles/Vol] 106 mmol/L Normal 98-108 [facility] Comment on above: Performed By: #### L 500.2500, L505.5000, L500.3400, L100.0100, L300.3900, L300.4310, L501.9100 ####[facility] [address] [place], [address] CO2 [Moles/Vol] 25.9 mmol/L Normal 21.0-32.0 [facility] Comment on above: Performed By: #### L 500.2500, L505.5000, L500.3400, L100.0100, L300.3900, L300.4310, L501.9100 ####[facility] [address] [place], [address] Creatinine [Mass/Vol] 1.00 mg/dL Normal 0.70-1.20 [facility] Comment on above: Performed By: #### L 500.2500, L505.5000, L500.3400, L100.0100, L300.3900, L300.4310, L501.9100 ####[facility] [address] [place], [address] ECRCL 31.63 ml/min Low 50-250 [facility] Comment on above: Performed By: #### L 500.2500, L505.5000, L500.3400, L100.0100, L300.3900, L300.4310, L501.9100 ####[facility] [address] [place], [address] GAP 11 Normal 5-15 [facility] Comment on above: Performed By: #### L 500.2500, L505.5000, L500.3400, L100.0100, L300.3900, L300.4310, L501.9100 ####[facility] [address] [place], [place], [phone]) GFR/1.73 sq M.predicted among non-blacks MDRD (S/P/Bld) [Vol rate/Area] 55 mL/min/{1.73_m2} Low >60 [facility] Comment on above: Result Comment: mL/m in/1.73m2 CKD-EPI Creatinine Equation (2020) Performed By: #### L 500.2500, L505.5000, L500.3400, L100.0100, L300.3900, L300.4310, L501.9100 ####[facility] [address] [place], [address] Glucose [Mass/Vol] 72 mg/dL Normal 70-99 [facility] Comment on above: Performed By: #### L 500.2500, L505.5000, L500.3400, L100.0100, L300.3900, L300.4310, L501.9100 ####[facility] [address] [place], [address] Potassium [Moles/Vol] 4.3 mmol/L Normal 3.3-5.1 [facility] Comment on above: Performed By: #### L 500.2500, L505.5000, L500.3400, L100.0100, L300.3900, L300.4310, L501.9100 ####[facility] [address] [place], [place], [phone] Sodium [Moles/Vol] 142 mmol/L Normal 133-145 [facility] Comment on above: Performed By: #### L 500.2500, L505.5000, L500.3400, L100.0100, L300.3900, L300.4310, L501.9100 ####[facility] [address] [place], [place], [phone] Urea nitrogen [Mass/Vol] 27 mg/dL High 4-19 [facility] Comment on above: Performed By: #### L 500.2500, L505.5000, L500.3400, L100.0100, L300.3900, L300.4310, L501.9100 ####[facility] [address] [place], [place], [phone] Basophil percentageOrdered B y: Fawad Cordon on 08-18-2024 Basophils/100 WBC (Bld) 1.3 % High 0-1 [facility] Bilirubin Test strip Ql (U)O rdered By: Fawad Cordon on 08-18-2024 Bilirubin Ql (U) Negative Negative [facility] Bilirubin directOrdered By: Fawad Cordon on 08-18-2024 Bilirubin.direct [Mass/Vol] 0.13 mg/dL 0.00-0.30 [facility] Bilirubin, totalOrdered By: Fawad Cordon on 08-18-2024 Bilirubin [Mass/Vol] 0.34 mg/dL 0.00-1.30 [facility] Blood cultureOrdered By: Gera Cordon on 08-18-2024 Bacteria identified Cx Nom (Bld) No growth in 5 days. [facility] Brain without Contraston Brain without Contrast Normal [facility] CBC W/Diff, Automatedon 05-0 7-2024 Absolute Lymph 0.91 X10 3/uL Normal 0.83-4.51 [facility] Comment on above: Performed By: #### L 500.2500, L505.5000, L500.3400, L100.0100, L300.3900, L300.4310, L501.9100 ####[facility] [address] [place], [address] Absolute Neut 6.6 X10 3/uL Normal 2.0-7.7 [facility] Comment on above: Performed By: #### L 500.2500, L505.5000, L500.3400, L100.0100, L300.3900, L300.4310, L501.9100 ####[facility] [address] [place], [address] Basophils/100 WBC (Bld) 1.3 % High 0-1 [facility] Comment on above: Performed By: #### L 500.2500, L505.5000, L500.3400, L100.0100, L300.3900, L300.4310, L501.9100 ####[facility] [address] [place], [address] Eosinophils/100 WBC (Bld) 0.7 % Normal 0-5 [facility] Comment on above: Performed By: #### L 500.2500, L505.5000, L500.3400, L100.0100, L300.3900, L300.4310, L501.9100 ####[facility] [address] [place], [address] Erythrocyte distribution width (RBC) [Ratio] 13.0 % Normal 11.6-14.6 [facility] Comment on above: Performed By: #### L 500.2500, L505.5000, L500.3400, L100.0100, L300.3900, L300.4310, L501.9100 ####[facility] [address] [place], [address] Hematocrit (Bld) [Volume fraction] 40.0 % Normal 37-47 [facility] Comment on above: Performed By: #### L 500.2500, L505.5000, L500.3400, L100.0100, L300.3900, L300.4310, L501.9100 ####[facility] [address] [place], [address] Hemoglobin (Bld) [Mass/Vol] 13.0 g/dL Normal 12.0-15.0 [facility] Comment on above: Performed By: #### L 500.2500, L505.5000, L500.3400, L100.0100, L300.3900, L300.4310, L501.9100 ####[facility] [address] [place], [address] IG% 0.400 Normal 0.0-0.9 [facility] Comment on above: Result Comment: IG% - Immature Granulocytes (promyelocytes, myelocytes andmetamyelocytes) > 1% indicates that a LEFT SHIFT is Present. Performed By: #### L 500.2500, L505.5000, L500.3400, L100.0100, L300.3900, L300.4310, L501.9100 ####[facility] [address] [place], [address] Lymphocytes/100 WBC (Bld) 10.9 % Low 19-41 [facility] Comment on above: Performed By: #### L 500.2500, L505.5000, L500.3400, L100.0100, L300.3900, L300.4310, L501.9100 ####[facility] [address] [place], [address] MCH (RBC) [Entitic mass] 31.2 pg Normal 27.0-32.0 [facility] Comment on above: Performed By: #### L 500.2500, L505.5000, L500.3400, L100.0100, L300.3900, L300.4310, L501.9100 ####[facility] [address] [place], [address] MCHC (RBC) [Mass/Vol] 32.5 g/dL Normal 32-36 [facility] Comment on above: Performed By: #### L 500.2500, L505.5000, L500.3400, L100.0100, L300.3900, L300.4310, L501.9100 ####[facility] [address] [place], [address] MCV (RBC) [Entitic vol] 95.9 fL Normal 81-99 [facility] Comment on above: Performed By: #### L 500.2500, L505.5000, L500.3400, L100.0100, L300.3900, L300.4310, L501.9100 ####[facility] [address] [place], [address] Monocytes/100 WBC (Bld) 7.5 % Normal 0-10 [facility] Comment on above: Performed By: #### L 500.2500, L505.5000, L500.3400, L100.0100, L300.3900, L300.4310, L501.9100 ####[facility] [address] [place], [address] Neutrophils/100 WBC (Bld) 79.2 % High 47-70 [facility] Comment on above: Performed By: #### L 500.2500, L505.5000, L500.3400, L100.0100, L300.3900, L300.4310, L501.9100 ####[facility] [address] [place], [address] Nucleated RBC (Bld) [#/Vol] 0 10*3/uL Normal 0-5 [facility] Comment on above: Performed By: #### L 500.2500, L505.5000, L500.3400, L100.0100, L300.3900, L300.4310, L501.9100 ####[facility] [address] [place], [address] Platelet mean volume (Bld) [Entitic vol] 9.1 fL Normal 6.2-12.0 [facility] Comment on above: Performed By: #### L 500.2500, L505.5000, L500.3400, L100.0100, L300.3900, L300.4310, L501.9100 ####[facility] [address] [place], [address] Platelets (Bld) [#/Vol] 254 10*3/uL Normal 150-450 [facility] Comment on above: Performed By: #### L 500.2500, L505.5000, L500.3400, L100.0100, L300.3900, L300.4310, L501.9100 ####[facility] [address] [place], [place], [phone] RBC (Bld) [#/Vol] 4.17 10*6/uL Low 4.2-5.4 [facility] Comment on above: Performed By: #### L 500.2500, L505.5000, L500.3400, L100.0100, L300.3900, L300.4310, L501.9100 ####[facility] [address] [place], [address] RDW SD 45.8 fl High 35.1-43.9 [facility] Comment on above: Performed By: #### L 500.2500, L505.5000, L500.3400, L100.0100, L300.3900, L300.4310, L501.9100 ####[facility] [address] [place], [place], [address] WBC (Bld) [#/Vol] 8.4 10*3/uL Normal 4.4-11.0 [facility] Comment on above: Performed By: #### L 500.2500, L505.5000, L500.3400, L100.0100, L300.3900, L300.4310, L501.9100 ####[facility] [address] [place], [address] Carbon dioxide, total [Moles /volume] in Central venous bloodOrdered By: Fawad Cordon on 08-18-2024 CO2 [Moles/Vol] 25.9 mmol/L 21.0-32.0 [facility] Chloride assayOrdered By: Adiel Cordon on 08-18-2024 Chloride [Moles/Vol] 106 mmol/L 98-108 [facility] Echo Completeon 08-18-2024 Echo Complete Normal [facility] Emergency Department Summary on 08-18-2024 Emergency Department Summary Normal [facility] Eosinophil percentageOrdered By: Fawad Cordon on 08-18-2024 Eosinophils/100 WBC (Bld) 0.7 % 0-5 [facility] Erythrocyte distribution wid th ratioOrdered By: Fawad Cordon on 08-18-2024 Erythrocyte distribution width (RBC) [Ratio] 13.0 % 11.6-14.6 [facility] Erythrocyte distribution wid th standard deviationOrdered By: Fawad Cordon on 08-18-2024 Erythrocyte distribution width (RBC) [Ratio] 45.8 fl High 35.1-43.9 [facility] Glomerular filtration rate ( GFR) estimation/1.73 sq m using serum, plasma, or whole bOrdered By: Fawad Cordon on 08-18-2024 GFR/1.73 sq M.predicted among non-blacks MDRD (S/P/Bld) [Vol rate/Area] 55 mL/min/{1.73_m2} Low >60 [facility] Comment on above: mL/min/1.73m2 CKD-EP I Creatinine Equation (2020) H AND P Exam - Hospitaliston 08-18-2024 H&P Exam - Hospitalist Normal [facility] Hematocrit Auto (Bld) [Volum e fraction]Ordered By: Fawad Cordon on 08-18-2024 Hematocrit (Bld) [Volume fraction] 40.0 % 37-47 [facility] Hemoglobin A1con 08-18-2024 HbA1c (Bld) [Mass fraction] 5.7 % Normal <=5.6 [facility] Comment on above: Result Comment: Norm al < 5.7 % Prediabetic 5.7 - 6.4 % Diabetic >or= 6.5 % Please note range changes. Performed By: #### L 501.9964 ####[facility] [address] [place], [place], [phone] Hemoglobin A1c percentageOrd ered By: Mara Mar on 08-18-2024 HbA1c (Bld) [Mass fraction] 5.7 % <5.7 [facility] Comment on above: Normal < 5.7 % Predi abetic 5.7 - 6.4 % Diabetic >or= 6.5 % Please note range changes. Hemoglobin measurementOrdere d By: Fawad Cordon on 08-18-2024 Hemoglobin (Bld) [Mass/Vol] 13.0 g/dL 12.0-15.0 [facility] Immature granulocytes/100 WB C Auto (Bld)Ordered By: Fawad Cordon on 08-18-2024 Immature granulocytes/100 WBC (Bld) 0.400 % 0.0-0.9 [facility] Comment on above: IG% - Immature Granu locytes (promyelocytes, myelocytes and metamyelocytes) > 1% indicates that a LEFT SHIFT is Present. International normalized rat io (INR) calculationOrdered By: Fawad Cordon on 08-18-2024 INR Coag (Bld) [Relative time] 1.0 {INR} [facility] Ketones Test strip Ql (U)Ord ered By: Fawad Cordon on 08-18-2024 Ketones Ql (U) Negative Negative [facility] Laboratory - Chemistry and C hemistry - challengeOrdered By: Fawad Cordon on 08-18-2024 AST [Catalytic activity/Vol] 36 U/L High <32 [facility] Lactic Acidon 08-18-2024 Lactate [Moles/Vol] mmol/L Normal 0.0-2.0 [facility] Comment on above: Order Comment: Y Performed By: #### L 503.6005 ####[facility] [address] [place], [place], [phone] Lactic acid measurementOrder ed By: Fawad Cordon on 08-18-2024 Lactate [Moles/Vol] mmol/L 0.0-2.0 [facility] Liver Profileon 08-18-2024 Albumin [Mass/Vol] 4.4 g/dL Normal 3.4-4.8 [facility] Comment on above: Performed By: #### L 500.2500, L505.5000, L500.3400, L100.0100, L300.3900, L300.4310, L501.9100 ####[facility] [address] [place], [place], [phone] ALK PHOS 82 U/L Normal 35-104 [facility] Comment on above: Performed By: #### L 500.2500, L505.5000, L500.3400, L100.0100, L300.3900, L300.4310, L501.9100 ####[facility] [address] [place], [place], [phone] ALT [Catalytic activity/Vol] 24 U/L Normal <=34 [facility] Comment on above: Performed By: #### L 500.2500, L505.5000, L500.3400, L100.0100, L300.3900, L300.4310, L501.9100 ####[facility] [address] [place], [address] AST [Catalytic activity/Vol] 36 U/L High <=31 [facility] Comment on above: Performed By: #### L 500.2500, L505.5000, L500.3400, L100.0100, L300.3900, L300.4310, L501.9100 ####[facility] [address] [place], [address] Bilirubin [Mass/Vol] 0.34 mg/dL Normal 0.00-1.30 [facility] Comment on above: Performed By: #### L 500.2500, L505.5000, L500.3400, L100.0100, L300.3900, L300.4310, L501.9100 ####[facility] [address] [place], [address] Bilirubin.direct [Mass/Vol] 0.13 mg/dL Normal 0.00-0.30 [facility] Comment on above: Performed By: #### L 500.2500, L505.5000, L500.3400, L100.0100, L300.3900, L300.4310, L501.9100 ####[facility] [address] [place], [place], [phone]) Globulin (S) [Mass/Vol] 3.2 g/dL Normal 2.2-4.2 [facility] Comment on above: Performed By: #### L 500.2500, L505.5000, L500.3400, L100.0100, L300.3900, L300.4310, L501.9100 ####[facility] [address] [place], [place], [phone]) T PROT 7.6 g/dL Normal 5.9-8.4 [facility] Comment on above: Performed By: #### L 500.2500, L505.5000, L500.3400, L100.0100, L300.3900, L300.4310, L501.9100 ####[facility] [address] [place], [address] MCV (mean corpuscular volume ) determinationOrdered By: Fawad Cordon on 08-18-2024 MCV (RBC) [Entitic vol] 95.9 fL 81-99 [facility] Magnetic resonance imaging r eportOrdered By: Eliezer Kasper on 08-18-2024 Study report [facility] [place] [address] Brain without Contrast MR#: [id number] Acct: [id number] Name: BEHZAD HAY Rep #: [id number] : 1940 F 84 From: Glory Kasper MD PCP: Tasha Deutsch, [employer] Status: ADM JENNY Study:Brain without Contrast Date of Exam: 08/18/24 Exam# [id number] Ordering Dr: Eliana Mar DO PROCEDURE: BRAIN [...] 6:39 pm with readback verification. Reading Location: [facility] CC: GARFIELD Deutsch; Dr. Mara Mar, DO ~ Jigmaker: Signed [facility] Mean corpuscular hemoglobin (MCH) determinationOrdered By: Fawad Cordon on 08-18-2024 MCH (RBC) [Entitic mass] 31.2 pg 27.0-32.0 [facility] Mean corpuscular hemoglobin concentration (MCHC) determinationOrdered By: Fawad Cordon on 08-18-2024 MCHC (RBC) [Mass/Vol] 32.5 g/dL 32-36 [facility] Mean platelet volume determi nationOrdered By: Fawad Cordon on 08-18-2024 Platelet mean volume (Bld) [Entitic vol] 9.1 fL 6.2-12.0 [facility] Microscopic analysis of urin e for red blood cells (RBC)Ordered By: Fawad Cordon on 08-18-2024 Microscopic analysis of urine for red blood cells (RBC) 0 SEEN /hpf 0-5 [facility] Monocyte percentageOrdered B y: Fawad Cordon on 08-18-2024 Monocytes/100 WBC (Bld) 7.5 % 0-10 [facility] Mucus LM Ql (Urine sed)Order ed By: Fawad Cordon on 08-18-2024 Mucus Ql (Urine sed) 0 SEEN /hpf [facility] Neutrophil percentageOrdered By: Fawad Cordon on 08-18-2024 Neutrophils/100 WBC (Bld) 79.2 % High 47-70 [facility] Nitrite Test strip Ql (U)Ord ered By: Fawad Cordon on 08-18-2024 Nitrite Ql (U) Positive High Negative [facility] No Panel InformationOrdered By: Fawad Cordon on 08-18-2024 Urine Buprenorphine Qualitative Negative < 200 ng/mL [facility] Urine Oxycodone Screen Negative < 100 ng/mL [facility] Nucleated red blood cell per centageOrdered By: Fawad Cordon on 08-18-2024 Nucleated RBC/100 WBC (Bld) [Ratio] 0 % 0-5 [facility] Partial Thromboplast Timeon 08-18-2024 aPTT Coag (Bld) [Time] 24.6 s Normal 24.1-36.2 [facility] Comment on above: Performed By: #### L 500.2500, L505.5000, L500.3400, L100.0100, L300.3900, L300.4310, L501.9100 ####[facility] [address] [place], [place], [phone] Platelet countOrdered By: Adiel Cordon on 08-18-2024 Platelets (Bld) [#/Vol] 254 10*3/uL 150-450 [facility] Potassium measurement (mass/ volume)Ordered By: Fawad Cordon on 08-18-2024 Potassium (Unsp spec) [Mass/Vol] 4.3 mmol/L 3.3-5.1 [facility] Protein Test strip Ql (U)Ord ered By: Fawad Cordon on 08-18-2024 Protein Ql (U) 30 mg/dl High Negative [facility] Prothrombin Time w/INRon INR Coag (PPP) [Relative time] 1.0 {INR} Normal [facility] Comment on above: Performed By: #### L 500.2500, L505.5000, L500.3400, L100.0100, L300.3900, L300.4310, L501.9100 ####[facility] [address] [place], [place], [phone] PT Coag (PPP) [Time] 13.1 s Normal 11.7-14.9 [facility] Comment on above: Performed By: #### L 500.2500, L505.5000, L500.3400, L100.0100, L300.3900, L300.4310, L501.9100 ####[facility] [address] [place], [address] Prothrombin timeOrdered By: Fawad Cordon on 08-18-2024 PT Coag (PPP) [Time] 13.1 s 11.7-14.9 [facility] Quantitative urine opiates m easurementOrdered By: Fawad Cordon on 08-18-2024 Opiates Ql (U) Negative < 300 ng/mL [facility] RBC Auto (Bld) [#/Vol]Ordere d By: Fawad Cordon on 08-18-2024 RBC (Bld) [#/Vol] 4.17 10*6/uL Low 4.2-5.4 [facility] STROKE CTA Head AND Neck W/C onon 08-18-2024 STROKE CTA Head AND Neck W/Con Normal [facility] Screening urine fentanyl reyes surementOrdered By: Fawad Cordon on 08-18-2024 fentaNYL Screen Ql (U) Negative [facility] Serum creatinine measurement (mass/volume)Ordered By: Fawad Cordon on 08-18-2024 Creatinine [Mass/Vol] 1.00 mg/dL 0.70-1.20 [facility] Serum globulin measurementOr dered By: Fawad Cordon on 08-18-2024 Globulin (S) [Mass/Vol] 3.2 g/dL 2.2-4.2 [facility] Serum glucose measurement (m ass/volume)Ordered By: Fawad Cordon on 08-18-2024 Glucose [Mass/Vol] 72 mg/dL 70-99 [facility] Serum or plasma alanine tierney otransferase (ALT) measurementOrdered By: Fawad Cordon on 08-18-2024 ALT [Catalytic activity/Vol] 24 U/L <35 [facility] Serum or plasma albumin camilo urement (mass/volume)Ordered By: Fawad Cordon on 08-18-2024 Albumin [Mass/Vol] 4.4 g/dL 3.4-4.8 [facility] Serum or plasma alkaline jordan sphatase measurementOrdered By: Fawad Cordon on 08-18-2024 ALP [Catalytic activity/Vol] 82 U/L 35-104 [facility] Serum or plasma calcium camilo urement (mass/volume)Ordered By: Fawad Cordon on 08-18-2024 Calcium [Mass/Vol] 10.0 mg/dL 7.6-11.0 [facility] Serum or plasma ethanol camilo urement (mass/volume)Ordered By: Fawad Cordon on 08-18-2024 Ethanol [Mass/Vol] mg/dL <10.1 [facility] Comment on above: This test is for med ical purposes only. The legal definition of intoxication varies according to local law. Serum or plasma urea nitroge n measurement (mass/volume)Ordered By: Fawad Cordon on 08-18-2024 Urea nitrogen [Mass/Vol] 27 mg/dL High 4-19 [facility] Sodium levelOrdered By: Ernesto Cordon on 08-18-2024 Sodium [Moles/Vol] 142 mmol/L 133-145 [facility] Squamous epithelial cells de tection in urine sediment by light microscopyOrdered By: Fawad Cordon on 08-18-2024 Epithelial cells.squamous LM Ql (Urine sed) 0 SEEN /hpf - [facility] Total proteinOrdered By: Gera Cordon on 08-18-2024 Protein [Mass/Vol] 7.6 g/dL 5.9-8.4 [facility] Urinalysis, Completeon 08-18 BACTERIA 3+ /hpf Normal None Seen [facility] Comment on above: Order Comment: CLEAN CATCH Performed By: #### L 400.0001 ####[facility] [address] [place], [place], [phone] WBC 10-25 SEEN Normal 0-[address] [place] [address] Comment on above: Order Comment: CLEAN CATCH Performed By: #### L 400.0001 ####[facility] [address] [place], [address] EPI,SQUAMOUS 0 SEEN Normal - [facility] Comment on above: Order Comment: CLEAN CATCH Performed By: #### L 400.0001 ####[facility] [address] [place], [address] Mucus Ql (Urine sed) 0 SEEN Normal [facility] Comment on above: Order Comment: CLEAN CATCH Performed By: #### L 400.0001 ####[facility] [address] [place], [address] RBC 0 SEEN Normal 0-5 [facility] Comment on above: Order Comment: CLEAN CATCH Performed By: #### L 400.0001 ####[facility] [address] [place], [phone] Urine Drug Screen (VISTA)on 08-18-2024 AMPHETAMINES Negative Normal <1000 ng/mL [facility] Comment on above: Performed By: #### L 500.2500, L505.5000, L500.3400, L100.0100, L300.3900, L300.4310, L501.9100 ####[facility] [address] [place], [phone] BARBITIURATES Negative Normal < 200 ng/mL [facility] Comment on above: Performed By: #### L 500.2500, L505.5000, L500.3400, L100.0100, L300.3900, L300.4310, L501.9100 ####[facility] [address] [place], [phone] BENZODIAZIPINE Negative Normal < 200 ng/mL [facility] Comment on above: Performed By: #### L 500.2500, L505.5000, L500.3400, L100.0100, L300.3900, L300.4310, L501.9100 ####[facility] [address] [place], [phone] BUP Ur Drug Scr Negative Normal < 200 ng/mL [facility] Comment on above: Performed By: #### L 500.2500, L505.5000, L500.3400, L100.0100, L300.3900, L300.4310, L501.9100 ####[facility] [address] [place], [phone] COCAINE Negative Normal < 300 ng/mL [facility] Comment on above: Performed By: #### L 500.2500, L505.5000, L500.3400, L100.0100, L300.3900, L300.4310, L501.9100 ####[facility] [address] [place], [phone] Fentanyl Negative Normal [facility] Comment on above: Performed By: #### L 500.2500, L505.5000, L500.3400, L100.0100, L300.3900, L300.4310, L501.9100 ####[facility] [address] [place] [address] METHADONE Negative Normal < 300 ng/mL [facility] Comment on above: Performed By: #### L 500.2500, L505.5000, L500.3400, L100.0100, L300.3900, L300.4310, L501.9100 ####[facility] [address] [place] [address] OPIATES Negative Normal < 300 ng/mL [facility] Comment on above: Performed By: #### L 500.2500, L505.5000, L500.3400, L100.0100, L300.3900, L300.4310, L501.9100 ####[facility] [address] [place] [address] OXYCODONE Negative Normal < 100 ng/mL [facility] Comment on above: Performed By: #### L 500.2500, L505.5000, L500.3400, L100.0100, L300.3900, L300.4310, L501.9100 ####[facility] [address] [place] [address] PCP Negative Normal < 25 ng/mL [facility] Comment on above: Performed By: #### L 500.2500, L505.5000, L500.3400, L100.0100, L300.3900, L300.4310, L501.9100 ####[facility] [address] [place] [address] THC Negative Normal < 50 ng/mL [facility] Comment on above: Performed By: #### L 500.2500, L505.5000, L500.3400, L100.0100, L300.3900, L300.4310, L501.9100 ####[facility] [address] [place], [address] Urine benzodiazepine levelOr dered By: Fawad Cordon on 08-18-2024 Benzodiazepines Ql (U) Negative < 200 ng/mL [facility] Urine clarityOrdered By: Gera Cordon on 08-18-2024 Clarity (U) Sl. Cloudy Clear [facility] Urine cocaine levelOrdered B y: Fawad Cordon on 08-18-2024 Cocaine Ql (U) Negative < 300 ng/mL [facility] Urine color determinationOrd ered By: Fawad Cordon on 08-18-2024 Color (U) Yellow Yellow [facility] Urine cultureOrdered By: Gera Cordon on 08-18-2024 Bacteria identified Cx Nom (U) Escherichia coli Abnormal [facility] Urine sqwmn-7-kibmuicljirlzx abinol (THC) measurementOrdered By: Fawad Cordon on 08-18-2024 Cannabinoids Screen Ql (U) Negative < 50 ng/mL [facility] Urine glucose detectionOrder ed By: Fawad Cordon on 08-18-2024 Glucose Ql (U) Normal mg/dl Normal [facility] Urine leukocyte esterase det ection by dipstickOrdered By: Fawad Cordon on 08-18-2024 Leukocyte esterase Test strip Ql (U) 500 /ul High Negative [facility] Urine pHOrdered By: Fawad espinoza on 08-18-2024 pH (U) 7.0 [pH] 5.0 - 8.0 [facility] Urine phencyclidine (PCP) de tectionOrdered By: Fawad Cordon on 08-18-2024 Phencyclidine Ql (U) Negative < 25 ng/mL [facility] Urine sediment bacteria coun t by microscopy (number/high power field)Ordered By: Fawad Cordon on 08-18-2024 Bacteria LM.HPF (Urine sed) [#/Area] 3 /[HPF] None Seen [facility] Urine specific gravity measu rementOrdered By: Fawad Cordon on 08-18-2024 Specific gravity (U) [Rel density] 1.005 1.002-1.03 0 [facility] Urine urobilinogen measureme ntOrdered By: Fawad Cordon on 08-18-2024 Urobilinogen Ql (U) Normal mg/dl Normal [facility] White blood cell (WBC) count Ordered By: Fawad Cordon on 08-18-2024 WBC (Bld) [#/Vol] 8.4 10*3/uL 4.4-11.0 [facility] White blood cell countOrdere d By: Fawad Cordon on 08-18-2024 White blood cell count 10-25 SEEN /hpf 0-5 [facility] 12 Lead EKGon 08-16-2024 12 Lead EKG Normal [facility] Absolute lymphocyte countOrd ered By: Ricki Reyes on 08-16-2024 Lymphocytes Auto (Unsp spec) [#/Vol] 1.46 10*3/uL 0.83-4.51 [facility] Absolute neutrophil countOrd ered By: Ricki Reyes on 08-16-2024 Neutrophils (Bld) [#/Vol] 4.0 10*3/uL 2.0-7.7 [facility] Anion gap in Serum or Plasma Ordered By: Ricki Reyes on 08-16-2024 Anion gap [Moles/Vol] 10 mmol/L 5-15 [facility] Automated lymphocyte count a s percentage of total leukocytesOrdered By: Ricki Reyes on 08-16-2024 Lymphocytes/100 WBC Auto (Unsp spec) 23.7 % 19-41 [facility] BUN/creatinine ratioOrdered By: Ricki Reyes on 08-16-2024 Urea nitrogen/Creatinine [Mass ratio] 17.0 mg/mg 10-20 [facility] Basophil percentageOrdered B y: Ricki Reyes on 08-16-2024 Basophils/100 WBC (Bld) 1.5 % High 0-1 [facility] Bilirubin Test strip Ql (U)O rdered By: Ricki Reyes on 08-16-2024 Bilirubin Ql (U) Negative Negative [facility] Bilirubin, totalOrdered By: Ricki Reyes on 08-16-2024 Bilirubin [Mass/Vol] 0.20 mg/dL 0.00-1.30 [facility] Brain/Head without Contrasto n 08-16-2024 Brain/Head without Contrast Normal [facility] CBC W/Diff, Automatedon 05 Absolute Lymph 1.46 X10 3/uL Normal 0.83-4.51 [facility] Comment on above: Performed By: #### L 100.0100, L500.4050 ####[facility] [address] [place], [address] Absolute Neut 4.0 X10 3/uL Normal 2.0-7.7 [facility] Comment on above: Performed By: #### L 100.0100, L500.4050 ####[facility] [address] [place], [address] Basophils/100 WBC (Bld) 1.5 % High 0-1 [facility] Comment on above: Performed By: #### L 100.0100, L500.4050 ####[facility] [address] [place], [address] Eosinophils/100 WBC (Bld) 1.5 % Normal 0-5 [facility] Comment on above: Performed By: #### L 100.0100, L500.4050 ####[facility] [address] [place], [address] Erythrocyte distribution width (RBC) [Ratio] 12.9 % Normal 11.6-14.6 [facility] Comment on above: Performed By: #### L 100.0100, L500.4050 ####[facility] [address] [place], [address] Hematocrit (Bld) [Volume fraction] 40.1 % Normal 37-47 [facility] Comment on above: Performed By: #### L 100.0100, L500.4050 ####[facility] [address] [place], [address] Hemoglobin (Bld) [Mass/Vol] 13.0 g/dL Normal 12.0-15.0 [facility] Comment on above: Performed By: #### L 100.0100, L500.4050 ####[facility] [address] [place], [address] IG% 0.200 Normal 0.0-0.9 [facility] Comment on above: Result Comment: IG% - Immature Granulocytes (promyelocytes, myelocytes andmetamyelocytes) > 1% indicates that a LEFT SHIFT is Present. Performed By: #### L 100.0100, L500.4050 ####[facility] [address] [place], [address] Lymphocytes/100 WBC (Bld) 23.7 % Normal 19-41 [facility] Comment on above: Performed By: #### L 100.0100, L500.4050 ####[facility] [address] [place], [address] MCH (RBC) [Entitic mass] 31.3 pg Normal 27.0-32.0 [facility] Comment on above: Performed By: #### L 100.0100, L500.4050 ####[facility] [address] [place], [address] MCHC (RBC) [Mass/Vol] 32.4 g/dL Normal 32-36 [facility] Comment on above: Performed By: #### L 100.0100, L500.4050 ####[facility] [address] [place], [address] MCV (RBC) [Entitic vol] 96.4 fL Normal 81-99 [facility] Comment on above: Performed By: #### L 100.0100, L500.4050 ####[facility] [address] [place], [address] Monocytes/100 WBC (Bld) 8.9 % Normal 0-10 [facility] Comment on above: Performed By: #### L 100.0100, L500.4050 ####[facility] [address] [place], [address] Neutrophils/100 WBC (Bld) 64.2 % Normal 47-70 [facility] Comment on above: Performed By: #### L 100.0100, L500.4050 ####[facility] [address] [place], [address] Nucleated RBC (Bld) [#/Vol] 0 10*3/uL Normal 0-5 [facility] Comment on above: Performed By: #### L 100.0100, L500.4050 ####[facility] [address] [place], [address] Platelet mean volume (Bld) [Entitic vol] 9.0 fL Normal 6.2-12.0 [facility] Comment on above: Performed By: #### L 100.0100, L500.4050 ####[facility] [address] [place], [address] Platelets (Bld) [#/Vol] 277 10*3/uL Normal 150-450 [facility] Comment on above: Performed By: #### L 100.0100, L500.4050 ####[facility] [address] [place], [address] RBC (Bld) [#/Vol] 4.16 10*6/uL Low 4.2-5.4 [facility] Comment on above: Performed By: #### L 100.0100, L500.4050 ####[facility] [address] [place], [address] RDW SD 45.6 fl High 35.1-43.9 [facility] Comment on above: Performed By: #### L 100.0100, L500.4050 ####[facility] [address] [place], [address] WBC (Bld) [#/Vol] 6.2 10*3/uL Normal 4.4-11.0 [facility] Comment on above: Performed By: #### L 100.0100, L500.4050 ####[facility] [address] [place], [address] Carbon dioxide, total [Moles /volume] in Central venous bloodOrdered By: Ricki Reyes on 08-16-2024 CO2 [Moles/Vol] 26.3 mmol/L 21.0-32.0 [facility] Chest PA and Lateralon 08-16 Chest PA and Lateral Normal [facility] Chloride assayOrdered By: Madhu Reyes on 08-16-2024 Chloride [Moles/Vol] 105 mmol/L 98-108 [facility] Comprehensive Metabolic Prof ilon 08-16-2024 Albumin [Mass/Vol] 4.2 g/dL Normal 3.4-4.8 [facility] Comment on above: Performed By: #### L 100.0100, L500.4050 ####[facility] [address] [place], [address] Albumin/Globulin [Mass ratio] 1.4 {ratio} Normal 0.9-2.4 [facility] Comment on above: Performed By: #### L 100.0100, L500.4050 ####[facility] [address] [place], [address] ALK PHOS 80 U/L Normal 35-104 [facility] Comment on above: Performed By: #### L 100.0100, L500.4050 ####[facility] [address] [place], [address] ALT [Catalytic activity/Vol] 21 U/L Normal <=34 [facility] Comment on above: Performed By: #### L 100.0100, L500.4050 ####[facility] [address] [place], [address] AST [Catalytic activity/Vol] 29 U/L Normal <=31 [facility] Comment on above: Performed By: #### L 100.0100, L500.4050 ####[facility] [address] [place], [address] Bilirubin [Mass/Vol] 0.20 mg/dL Normal 0.00-1.30 [facility] Comment on above: Performed By: #### L 100.0100, L500.4050 ####[facility] [address] [place], [address] BUN/CRE 17.0 RATIO Normal 10-20 [facility] Comment on above: Performed By: #### L 100.0100, L500.4050 ####[facility] [address] [place], [address] Calcium [Mass/Vol] 9.9 mg/dL Normal 7.6-11.0 [facility] Comment on above: Performed By: #### L 100.0100, L500.4050 ####[facility] [address] [place], [address] Chloride [Moles/Vol] 105 mmol/L Normal 98-108 [facility] Comment on above: Performed By: #### L 100.0100, L500.4050 ####[facility] [address] [place], [address] CO2 [Moles/Vol] 26.3 mmol/L Normal 21.0-32.0 [facility] Comment on above: Performed By: #### L 100.0100, L500.4050 ####[facility] [address] [place], [address] Creatinine [Mass/Vol] 1.00 mg/dL Normal 0.70-1.20 [facility] Comment on above: Performed By: #### L 100.0100, L500.4050 ####[facility] [address] [place], [address] ECRCL 29.01 ml/min Low 50-250 [facility] Comment on above: Performed By: #### L 100.0100, L500.4050 ####[facility] [address] [place], [address] GAP 10 Normal 5-15 [facility] Comment on above: Performed By: #### L 100.0100, L500.4050 ####[facility] [address] [place], [address] GFR/1.73 sq M.predicted among non-blacks MDRD (S/P/Bld) [Vol rate/Area] 55 mL/min/{1.73_m2} Low >60 [facility] Comment on above: Result Comment: mL/m in/1.73m2 CKD-EPI Creatinine Equation (2020) Performed By: #### L 100.0100, L500.4050 ####[facility] [address] [place], [address] Globulin (S) [Mass/Vol] 3.0 g/dL Normal 2.2-4.2 [facility] Comment on above: Performed By: #### L 100.0100, L500.4050 ####[facility] [address] [place], [address] Glucose [Mass/Vol] 106 mg/dL High 70-99 [facility] Comment on above: Performed By: #### L 100.0100, L500.4050 ####[facility] [address] [place], [address] Potassium [Moles/Vol] 4.5 mmol/L Normal 3.3-5.1 [facility] Comment on above: Performed By: #### L 100.0100, L500.4050 ####[facility] [address] [place], [address] Sodium [Moles/Vol] 141 mmol/L Normal 133-145 [facility] Comment on above: Performed By: #### L 100.0100, L500.4050 ####[facility] [address] [place], [address] T PROT 7.2 g/dL Normal 5.9-8.4 [facility] Comment on above: Performed By: #### L 100.0100, L500.4050 ####[facility] [address] [place], [address] Urea nitrogen [Mass/Vol] 17 mg/dL Normal 4-19 [facility] Comment on above: Performed By: #### L 100.0100, L500.4050 ####[facility] [address] [place], [address] Emergency Department Summary on 08-16-2024 Emergency Department Summary Normal [facility] Eosinophil percentageOrdered By: Ricki Reyes on 08-16-2024 Eosinophils/100 WBC (Bld) 1.5 % 0-5 [facility] Erythrocyte distribution wid th ratioOrdered By: Ricki Reyes on 08-16-2024 Erythrocyte distribution width (RBC) [Ratio] 12.9 % 11.6-14.6 [facility] Erythrocyte distribution wid th standard deviationOrdered By: Ricki Reyes on 08-16-2024 Erythrocyte distribution width (RBC) [Ratio] 45.6 fl High 35.1-43.9 [facility] Glomerular filtration rate ( GFR) estimation/1.73 sq m using serum, plasma, or whole bOrdered By: Ricki Reyes on 08-16-2024 GFR/1.73 sq M.predicted among non-blacks MDRD (S/P/Bld) [Vol rate/Area] 55 mL/min/{1.73_m2} Low >60 [facility] Comment on above: mL/min/1.73m2 CKD-EP I Creatinine Equation (2020) Hematocrit Auto (Bld) [Volum e fraction]Ordered By: Ricki Reyes on 08-16-2024 Hematocrit (Bld) [Volume fraction] 40.1 % 37-47 [facility] Hemoglobin measurementOrdere d By: Ricki Reyes on 08-16-2024 Hemoglobin (Bld) [Mass/Vol] 13.0 g/dL 12.0-15.0 [facility] Immature granulocytes/100 WB C Auto (Bld)Ordered By: Ricki Reyes on 08-16-2024 Immature granulocytes/100 WBC (Bld) 0.200 % 0.0-0.9 [facility] Comment on above: IG% - Immature Granu locytes (promyelocytes, myelocytes and metamyelocytes) > 1% indicates that a LEFT SHIFT is Present. Ketones Test strip Ql (U)Ord ered By: Ricki Reyes on 08-16-2024 Ketones Ql (U) Negative Negative [facility] Laboratory - Chemistry and C hemistry - challengeOrdered By: Ricki Reyes on 08-16-2024 AST [Catalytic activity/Vol] 29 U/L <32 [facility] MCV (mean corpuscular volume ) determinationOrdered By: Ricki Reyes on 08-16-2024 MCV (RBC) [Entitic vol] 96.4 fL 81-99 [facility] Mean corpuscular hemoglobin (MCH) determinationOrdered By: Ricki Reyes on 08-16-2024 MCH (RBC) [Entitic mass] 31.3 pg 27.0-32.0 [facility] Mean corpuscular hemoglobin concentration (MCHC) determinationOrdered By: Ricki Reyes on 08-16-2024 MCHC (RBC) [Mass/Vol] 32.4 g/dL 32-36 [facility] Mean platelet volume determi nationOrdered By: Ricki Reyes on 08-16-2024 Platelet mean volume (Bld) [Entitic vol] 9.0 fL 6.2-12.0 [facility] Microscopic analysis of urin e for red blood cells (RBC)Ordered By: Ricki Reyes on 08-16-2024 Microscopic analysis of urine for red blood cells (RBC) 0-5 SEEN /hpf 0-5 [facility] Monocyte percentageOrdered B y: Ricki Reyes on 08-16-2024 Monocytes/100 WBC (Bld) 8.9 % 0-10 [facility] Mucus LM Ql (Urine sed)Order ed By: Ricki Reyes on 08-16-2024 Mucus Ql (Urine sed) 0 SEEN /hpf [facility] Neutrophil percentageOrdered By: Ricki Reyes on 08-16-2024 Neutrophils/100 WBC (Bld) 64.2 % 47-70 [facility] Nitrite Test strip Ql (U)Ord ered By: Ricki Reyes on 08-16-2024 Nitrite Ql (U) Negative Negative [facility] Nucleated red blood cell per centageOrdered By: Ricki Reyes on 08-16-2024 Nucleated RBC/100 WBC (Bld) [Ratio] 0 % 0-5 [facility] Platelet countOrdered By: Madhu Reyes on 08-16-2024 Platelets (Bld) [#/Vol] 277 10*3/uL 150-450 [facility] Potassium measurement (mass/ volume)Ordered By: Ricki Reyes on 08-16-2024 Potassium (Unsp spec) [Mass/Vol] 4.5 mmol/L 3.3-5.1 [facility] Protein Test strip Ql (U)Ord ered By: Ricki Reyes on 08-16-2024 Protein Ql (U) 15 mg/dl High Negative [facility] RBC Auto (Bld) [#/Vol]Ordere d By: Ricki Reyes on 08-16-2024 RBC (Bld) [#/Vol] 4.16 10*6/uL Low 4.2-5.4 [facility] Serum creatinine measurement (mass/volume)Ordered By: Ricki Reyes on 08-16-2024 Creatinine [Mass/Vol] 1.00 mg/dL 0.70-1.20 [facility] Serum globulin measurementOr dered By: Ricki Reyes on 08-16-2024 Globulin (S) [Mass/Vol] 3.0 g/dL 2.2-4.2 [facility] Serum glucose measurement (m ass/volume)Ordered By: Ricki Reyes on 08-16-2024 Glucose [Mass/Vol] 106 mg/dL High 70-99 [facility] Serum or plasma alanine tierney otransferase (ALT) measurementOrdered By: Ricki Reyes on 08-16-2024 ALT [Catalytic activity/Vol] 21 U/L <35 [facility] Serum or plasma albumin camilo urement (mass/volume)Ordered By: Ricki Reyes on 08-16-2024 Albumin [Mass/Vol] 4.2 g/dL 3.4-4.8 [facility] Serum or plasma albumin/glob ulin mass ratioOrdered By: Ricki Reyes on 08-16-2024 Albumin/Globulin [Mass ratio] 1.4 {ratio} 0.9-2.4 [facility] Serum or plasma alkaline jordan sphatase measurementOrdered By: Ricki Reyes on 08-16-2024 ALP [Catalytic activity/Vol] 80 U/L 35-104 [facility] Serum or plasma calcium camilo urement (mass/volume)Ordered By: Ricki Reyes on 08-16-2024 Calcium [Mass/Vol] 9.9 mg/dL 7.6-11.0 [facility] Serum or plasma urea nitroge n measurement (mass/volume)Ordered By: Ricki Reyes on 08-16-2024 Urea nitrogen [Mass/Vol] 17 mg/dL 4-19 [facility] Sodium levelOrdered By: Ricki Reyes on 08-16-2024 Sodium [Moles/Vol] 141 mmol/L 133-145 [facility] Squamous epithelial cells de tection in urine sediment by light microscopyOrdered By: Ricki Reyes on 08-16-2024 Epithelial cells.squamous LM Ql (Urine sed) 0-5 SEEN /hpf 5-10 [facility] Total proteinOrdered By: Juliocesar Reyes on 08-16-2024 Protein [Mass/Vol] 7.2 g/dL 5.9-8.4 [facility] Urinalysis, Completeon 08-16 EPI,SQUAMOUS 0-5 SEEN Normal 5-10 [facility] Comment on above: Order Comment: CLEAN CATCH Performed By: #### L 400.0001 ####[facility] [address] [place], [address] RBC 0-5 SEEN Normal 0-5 [facility] Comment on above: Order Comment: CLEAN CATCH Performed By: #### L 400.0001 ####[facility] [address] [place], [place], [id number] WBC 0-5 SEEN Normal 0-5 [facility] Comment on above: Order Comment: CLEAN CATCH Performed By: #### L 400.0001 ####[facility] [address] [place], [address] BACTERIA 0 SEEN Normal None Seen [facility] Comment on above: Order Comment: CLEAN CATCH Performed By: #### L 400.0001 ####[facility] [address] [place], [address] Mucus Ql (Urine sed) 0 SEEN Normal [facility] Comment on above: Order Comment: CLEAN CATCH Performed By: #### L 400.0001 ####[facility] [address] [place], [place], [id number] Urine clarityOrdered By: Juliocesar Reyes on 08-16-2024 Clarity (U) Clear Clear [facility] Urine color determinationOrd ered By: Ricki Reyes on 08-16-2024 Color (U) Straw Yellow [facility] Urine glucose detectionOrder ed By: Ricki Reyes on 08-16-2024 Glucose Ql (U) Normal mg/dl Normal [facility] Urine leukocyte esterase det ection by dipstickOrdered By: Ricki Reyes on 08-16-2024 Leukocyte esterase Test strip Ql (U) 25 /ul High Negative [facility] Urine pHOrdered By: iRcki marcano on 08-16-2024 pH (U) 8.0 [pH] 5.0 - 8.0 [facility] Urine sediment bacteria coun t by microscopy (number/high power field)Ordered By: iRcki Reyes on 08-16-2024 Bacteria LM.HPF (Urine sed) [#/Area] 0 /[HPF] None Seen [facility] Urine specific gravity measu rementOrdered By: Ricki Reyes on 08-16-2024 Specific gravity (U) [Rel density] 1.010 1.002-1.03 0 [facility] Urine urobilinogen measureme ntOrdered By: Ricki Reyes on 08-16-2024 Urobilinogen Ql (U) Normal mg/dl Normal [facility] White blood cell (WBC) count Ordered By: Ricki Reyes on 08-16-2024 WBC (Bld) [#/Vol] 6.2 10*3/uL 4.4-11.0 [facility] White blood cell countOrdere d By: Ricki Reyes on 08-16-2024 White blood cell count 0-5 SEEN /hpf 0-5 [facility] 25(OH)D3 SerPl-mCncon 2024 25-hydroxyvitamin D3 [Mass/Vol] 60.1 ng/mL Normal 31.0-80.0 [facility] Comment on above: Order Comment: Speci men Type: BLOOD SPECIMENOrdering Facility: [facility] Address: [address] [place] [address] Result Comment: Clas sification of 25 [place] Vitamin D status: Deficiency/Insufficiency: < or = 30 ng/ml. Sufficiency/Optimal Levels: 31-80 ng/mL Toxicity: > 100 ng/mL. Test performed by chemiluminescent immunoassay. Performed By: #### 1 989-3 ####[facility] [id number] [place] [address] [place] CBC W Auto Differential pane l (Bld)on 04-26-2024 Basophils (Bld) [#/Vol] 0.08 10*3/uL Normal <0.11 [facility] Comment on above: Order Comment: Speci men Type: BLOOD SPECIMENOrdering Facility: [facility] Address: [address] [place] [address] Performed By: #### 5 7021-8 ####[facility] [id number] [place] [address] [place] Basophils/100 WBC (Bld) 1.4 % Normal [facility] Comment on above: Order Comment: Speci men Type: BLOOD SPECIMENOrdering Facility: [facility] Address: [address] [place] [address] Performed By: #### 5 7021-8 ####[facility] [id number] [place] [address] [place] Differential cell count method Nom (Bld) Auto Normal [facility] Comment on above: Order Comment: Speci men Type: BLOOD SPECIMENOrdering Facility: [facility] Address: [address] [place] [address] Performed By: #### 5 7021-8 ####[facility] [id number] [place] [address] [place] Eosinophils (Bld) [#/Vol] 0.18 10*3/uL Normal <0.46 [facility] Comment on above: Order Comment: Speci men Type: BLOOD SPECIMENOrdering Facility: [facility] Address: [address] [place] [address] Performed By: #### 5 7021-8 ####[facility] [id number] [place] [address] [place] Eosinophils/100 WBC (Bld) 3.2 % Normal [facility] Comment on above: Order Comment: Speci men Type: BLOOD SPECIMENOrdering Facility: [facility] Address: [address] [place] [address] Performed By: #### 5 7021-8 ####[facility]CL[facility] [id number] [place] [address] [place] Erythrocyte distribution width (RBC) [Ratio] 12.7 % Normal 11.5-15.0 [facility] Comment on above: Order Comment: Speci men Type: BLOOD SPECIMENOrdering Facility: [facility] Address: [address] [place] [address] Performed By: #### 5 7021-8 ####[facility] [id number] [place] [address] [place] Hematocrit (Bld) [Volume fraction] 40.4 % Normal 36.0-46.0 [facility] Comment on above: Order Comment: Speci men Type: BLOOD SPECIMENOrdering Facility: [facility] Address: [address] [place] [address] Performed By: #### 5 7021-8 ####[facility] [id number] [place] [address] [place] Hemoglobin (Bld) [Mass/Vol] 12.6 g/dL Normal 11.5-15.5 [facility] Comment on above: Order Comment: Speci men Type: BLOOD SPECIMENOrdering Facility: [facility] Address: [address] [place] [address] Performed By: #### 5 7021-8 ####[facility] [id number] [place] [address] [place] Immature granulocytes (Bld) [#/Vol] 10*3/uL Normal <0.10 [facility] Comment on above: Order Comment: Speci men Type: BLOOD SPECIMENOrdering Facility: [facility] Address: [address] [place] [address] Performed By: #### 5 7021-8 ####[facility] [id number] [place] [address] [place] Immature granulocytes/100 WBC (Bld) 0.4 % Normal [facility] Comment on above: Order Comment: Speci men Type: BLOOD SPECIMENOrdering Facility: [facility] Address: [address] [place] [address] Performed By: #### 5 7021-8 ####[facility] [id number] [place] [address] [place] Lymphocytes (Bld) [#/Vol] 1.07 10*3/uL Normal 1.00-4.00 [facility] Comment on above: Order Comment: Speci men Type: BLOOD SPECIMENOrdering Facility: [facility] Address: [address] [place] [address] Performed By: #### 5 7021-8 ####[facility]CLIA [id number] [place] [address] [place] Lymphocytes/100 WBC (Bld) 19.0 % Normal [facility] Comment on above: Order Comment: Speci men Type: BLOOD SPECIMENOrdering Facility: [facility] Address: [address] [place] [address] Performed By: #### 5 7021-8 ####[facility] [id number] [place] [address] [place] MCH (RBC) [Entitic mass] 31.0 pg Normal 26.0-34.0 [facility] Comment on above: Order Comment: Speci men Type: BLOOD SPECIMENOrdering Facility: [facility] Address: [address] [place] [address] Performed By: #### 5 7021-8 ####[facility] [id number] [place] [address] [place] MCHC (RBC) [Mass/Vol] 31.2 g/dL Normal 30.5-36.0 [facility] Comment on above: Order Comment: Speci men Type: BLOOD SPECIMENOrdering Facility: [facility] Address: [address] [place] [address] Performed By: #### 5 7021-8 ####[facility] [id number] [place] [address] [place] MCV (RBC) [Entitic vol] 99.5 fL Normal 80.0-100.0 [facility] Comment on above: Order Comment: Speci men Type: BLOOD SPECIMENOrdering Facility: [facility] Address: [address] [place] [address] Performed By: #### 5 7021-8 ####[facility] [id number] [place] [address] [place] Monocytes (Bld) [#/Vol] 0.51 10*3/uL Normal <0.87 [facility] Comment on above: Order Comment: Speci men Type: BLOOD SPECIMENOrdering Facility: [facility] Address: [address] [place] [address] Performed By: #### 5 7021-8 ####[facility]CLIA [id number] [place] [address] [place] Monocytes/100 WBC (Bld) 9.1 % Normal [facility] Comment on above: Order Comment: Speci men Type: BLOOD SPECIMENOrdering Facility: [facility] Address: [address] [place] [address] Performed By: #### 5 7021-8 ####[facility] [id number] [place] [address] [place] Neutrophils (Bld) [#/Vol] 3.77 10*3/uL Normal 1.45-7.50 [facility] Comment on above: Order Comment: Speci men Type: BLOOD SPECIMENOrdering Facility: [facility] Address: [address] [place] [address] Performed By: #### 5 7021-8 ####[facility]CLIA [id number] [place] [address] [place] Neutrophils/100 WBC (Bld) 66.9 % Normal [facility] Comment on above: Order Comment: Speci men Type: BLOOD SPECIMENOrdering Facility: [facility] Address: [address] [place] [address] Performed By: #### 5 7021-8 ####[facility] [id number] [place] [address] [place] Nucleated RBC (Bld) [#/Vol] 10*3/uL Normal <0.01 [facility] Comment on above: Order Comment: Speci men Type: BLOOD SPECIMENOrdering Facility: [facility] Address: [address] [place] [address] Performed By: #### 5 7021-8 ####[facility]IA [id number] [place] [address] [place] Nucleated RBC/100 WBC (Bld) [Ratio] 0.0 /100 WBC Normal [facility] Comment on above: Order Comment: Speci men Type: BLOOD SPECIMENOrdering Facility: [facility] Address: [address] [place] [address] Performed By: #### 5 7021-8 ####[facility] [id number] [place] [address] [place] Platelet mean volume (Bld) [Entitic vol] 9.7 fL Normal 9.0-12.7 [facility] Comment on above: Order Comment: Speci men Type: BLOOD SPECIMENOrdering Facility: [facility] Address: [address] [place] [address] Performed By: #### 5 7021-8 ####[facility]IA [id number] [place] [address] [place] Platelets (Bld) [#/Vol] 348 10*3/uL Normal 150-400 [facility] Comment on above: Order Comment: Speci men Type: BLOOD SPECIMENOrdering Facility: [facility] Address: [address] [place] [address] Performed By: #### 5 7021-8 ####[facility] [id number] [place] [address] [place] RBC (Bld) [#/Vol] 4.06 10*6/uL Normal 3.90-5.20 [facility] Comment on above: Order Comment: Speci men Type: BLOOD SPECIMENOrdering Facility: [facility] Address: [address] [place] [address] Performed By: #### 5 7021-8 ####[facility] LABCLIA [id number] [place] [address] [place] WBC (Bld) [#/Vol] 5.63 10*3/uL Normal 3.70-11.00 [facility] Comment on above: Order Comment: Speci men Type: BLOOD SPECIMENOrdering Facility: [facility] Address: [address] [place] [address] Performed By: #### 5 7021-8 ####[facility]IA [id number] [address] [id number] [address] [place] CNOVon 04-26-2024 CNOV Office Visit (FAMPWS ) BEHZAD HAY ([id number]) 1940 F Date Time Provider Department 04/26/24 10:00 AM [facility] today, we recorded the following information about you: Pulse Blood pressure Weight 62/minute 142/78 54 kg Tasha Deutsch, COOPERATIVE EDUCATION COORDINATOR.PROPERTY ADJUSTER 04/26/2024 10:53 AM Signed This is a [...] hernia History of esophagogastroduodenoscopy (EGD) [facility] normal HTN (hypertension) Hyperlipidemia, mixed [...] Bactrim [Sulfamethoxazole-Trimethop rim], Macrobid [Nitrofurantoin Monohyd/M-Cryst], and Cyrgyhc-Cvu-Kjo Reductase Inhibitors MEDICATIONS Current Outpatient Medications Medication [...] Brother age 76 other (CVA) Brother other ([employer] shunt) Brother Hypertension Sister Diabetes Sister age [...] or shortne (more content not included)... Normal [facility] 04-26-2024 [facility] Telephone ([facility]) BHARTIBEHZAD Lugo ([id number]) 1940 F Date Time Provider Department 04/26/24 TASHA DEUTSCH [facility] During your visit today, we recorded the following information about you: Tasha Deutsch APRN.[facility] 04/26/2024 4:40 PM Signed Please let [...] Rash MACROBID (NITROFURANTOIN MONOHYD/*09/25/2018 2 - Rash FVJAXHA-GBD-KLN REDUCTASE INHIBIT*10/06/2014 5 - Intolerance Date Reviewed: 04/26/2024 Reviewed by: Tasha Deutsch APRN.PROPERTY ADJUSTER - Fully Assessed Primary Visit Diagnosis:Recurrent UTI [...] osteoarthritis of right hip [M16.11] 02/27/2017 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 (HCC) [KFN5605] 07/28/2017 07/06/2018 Collagenous colitis [K52.831] 12/21/2018 IBS [...] Status:Closed by WINSOME BUTLER on 04/26/24 Normal [facility] metabolic 2000 panelon 04-26-2024 Albumin [Mass/Vol] 4.4 g/dL Normal 3.9-4.9 [facility] Comment on above: Order Comment: Speci men Type: BLOOD SPECIMEN [facility] Address: [address] [id number] Performed By: #### 2 132-9, 31224-0 #### [facility] CLIA [id number] [address] [place], [place] [id number] [place] ALP [Catalytic activity/Vol] 95 U/L Normal 34-123 [facility] Comment on above: Order Comment: Speci men Type: BLOOD SPECIMEN [facility] Address: [address] [place] [address] Performed By: #### 2 132-9, 59134-6 #### [facility] CLIA [id number] [address] [place] [address] [place] ALT [Catalytic activity/Vol] 17 U/L Normal 7-38 [facility] Comment on above: Order Comment: Speci men Type: BLOOD SPECIMEN [facility] Address: [address] [place] [address] Performed By: #### 2 132-9, 46939-2 #### [facility] CLIA [id number] [address] [place] [address] [place] Anion gap [Moles/Vol] 13 mmol/L Normal 8-15 [facility] Comment on above: Order Comment: Speci men Type: BLOOD SPECIMEN [facility] Address: [address] [id number] Performed By: #### 2 132-9, 81031-0 #### [facility] CLIA [id number] [address] [place] [address] [place] AST [Catalytic activity/Vol] 24 U/L Normal 13-35 [facility] Comment on above: Order Comment: Speci men Type: BLOOD SPECIMEN [facility] Address: [address] [place] [address] Performed By: #### 2 132-9, #### [facility] CLIA [id number] [address] [place] [address] [place] Bilirubin [Mass/Vol] 0.3 mg/dL Normal 0.2-1.3 [facility] Comment on above: Order Comment: Speci men Type: BLOOD SPECIMEN [facility] Address: [address] [place] [address] Performed By: #### 2 132-9, #### [facility] CLIA [id number] [address] [place] [address] [place] Calcium [Mass/Vol] 10.4 mg/dL High 8.5-10.2 [facility] Comment on above: Order Comment: Speci men Type: BLOOD SPECIMEN [facility] Address: [address] [place] [address] Performed By: #### 2 132-9, #### [facility] CLIA [id number] [address] [place] [address] [place] Chloride [Moles/Vol] 101 mmol/L Normal 98-107 [facility] Comment on above: Order Comment: Speci men Type: BLOOD SPECIMEN [facility] Address: [address] [place] [address] Performed By: #### 2 132-9, #### [facility] CLIA [id number] [address] [place] [address] [place] CO2 [Moles/Vol] 26 mmol/L Normal 22-30 [facility] Comment on above: Order Comment: Speci men Type: BLOOD SPECIMEN [facility] Address: [address] [place] [address] Performed By: #### 2 132-9, #### [facility] CLIA [id number] [address] [place] [address] [place] Creatinine [Mass/Vol] 0.87 mg/dL Normal 0.58-0.96 [facility] Comment on above: Order Comment: Cheri jimenez Type: BLOOD SPECIMEN [facility] Address: [address] [place] [address] Performed By: #### 2 132-9, 02450-9 #### [facility] CLIA [id number] [address] [place] [address] [place] [facility] [place] Creatinine and Glomerular filtration rate.predicted panel (S/P/Bld) 65 mL/min/1.73m??? Normal >=60 [facility] Comment on above: Order Comment: Cheri jimenez Type: BLOOD SPECIMEN [facility] Address: [address] [place] [address] Result Comment: Pattie mated Glomerular Filtration Rate [...] actual GFR. Performed By: #### 2 132-9, 00433-0 #### [facility] CLIA [id number] [address] [place] [address] [place] Glucose [Mass/Vol] 112 mg/dL High 74-99 [facility] Comment on above: Order Comment: Cheri jimenez Type: BLOOD SPECIMEN [facility] Address: [address] [place] [address] Result Comment: The [place] Diabetes Association (ADA) provides guidance for cutoff [...] Standards of Medical Care in Diabetes 2016, [place] Diabetes Association. Diabetes Care. 2016.39(Suppl 1). Performed By: #### 2 132-9, 05948-7 #### [facility] CLIA [id number] [address] [place] [address] [place] Potassium [Moles/Vol] 5.1 mmol/L Normal 3.7-5.1 [facility] Comment on above: Order Comment: Speci men Type: BLOOD SPECIMEN [facility] Address: [address] [place] [address] Performed By: #### 2 132-9, 60985-8 #### [facility] CLIA [id number] [address] [place] [address] [place] Protein [Mass/Vol] 7.1 g/dL Normal 6.3-8.0 [facility] Comment on above: Order Comment: Speci men Type: BLOOD SPECIMEN [facility] Address: [address] [place] [address] Performed By: #### 2 132-9, #### [facility] CLIA [id number] [address] [place] [address] [place] Sodium [Moles/Vol] 140 mmol/L Normal 136-144 [facility] Comment on above: Order Comment: Speci men Type: BLOOD SPECIMEN [facility] Address: [address] [place] [address] Performed By: #### 2 132-9, 49793-4 #### [facility] CLIA [id number] [address] [place] [address] [place] Urea nitrogen [Mass/Vol] 16 mg/dL Normal 7-21 [facility] Comment on above: Order Comment: Speci men Type: BLOOD SPECIMEN [facility] Address: [address] [place] [address] Performed By: #### 2 132-9, 09634-9 #### [facility] CLIA [id number] [address] [place] [address] [place] Ferritin SerPl-mCncon 2024 Ferritin [Mass/Vol] 64.4 ng/mL Normal 14.7-205.1 [facility] Comment on above: Order Comment: Speci men Type: BLOOD SPECIMENOrdering Facility: [facility] Address: [address] [place] [address] Performed By: #### 1 9123-9, 79496-3, 2276-4, LIPNF ####[facility] [id number] [place] [address] [place] HbA1c (Bld)on 04-26-2024 Average glucose Estimated from glycated hemoglobin (Bld) [Mass/Vol] 105 mg/dL Normal [facility] Comment on above: Order Comment: Cheri jimenez Type: BLOOD SPECIMEN [facility] Address: [address] [place] [address] Result Comment: eAG: (Estimated average glucose) is a calculated value from HgbA1c and is civil rights representative of the average blood glucose level in the last 2-3 month period. Performed By: #### 5 5454-3 #### [facility] CLIA [id number] [address] [place] [address] [place] HbA1c (Bld) [Mass fraction] 5.3 % Normal 4.3-5.6 [facility] Comment on above: Order Comment: [facility] Type: BLOOD SPECIMEN [facility] Address: [address] [place] [address] Result Comment: [place] Diabetes Association guidelines indicate that patients with HgbA1c in the range 5.7-6.4% are at increased risk for development of diabetes, and intervention by lifestyle modification may be beneficial. HgbA1c greater or equal to 6.5% is considered diagnostic of diabetes. Performed By: #### 5 5454-3 #### [facility] CLIA [id number] [address] [place] [address] [place] Iron and Iron binding capaci ty panelon 04-26-2024 Iron [Mass/Vol] 80 ug/dL Normal 41-186 [facility] Comment on above: Order Comment: Speci men Type: BLOOD SPECIMENOrdering Facility: [facility] Address: [address] [place] [address] Performed By: #### 1 9123-9, 09676-9, 2276-4, LIPNF ####[facility] [id number] [place] [address] [place] Iron binding capacity [Mass/Vol] 333 ug/dL Normal 232-386 [facility] Comment on above: Order Comment: Speci men Type: BLOOD SPECIMENOrdering Facility: [facility] Address: [address] [place] [address] Performed By: #### 1 9123-9, 08702-0, 6-4, LIPNF ####[facility] [id number] [place] [address] [place] Iron/TIBC [Molar ratio] 24.0 % Normal 15.0-57.0 [facility] Comment on above: Order Comment: Speci men Type: BLOOD SPECIMENOrdering Facility: [facility] Address: [address] [place] [address] Performed By: #### 1 9123-9, 04437-1, 6-4, LIPNF ####[facility] [id number] [place] [id number] [place] LIPID PANEL, NONFASTINGon Cholesterol [Mass/Vol] 238 mg/dL High <200 [facility] Comment on above: Order Comment: Speci men Type: BLOOD SPECIMENOrdering Facility: [facility] Address: [address] [place] [address] Result Comment: <200 mg/dL, Desirable 200-239 mg/dL, Borderline high >239 mg/dL, High Performed By: #### 1 9123-9, 32013-6, 6-4, LIPNF ####[facility] [id number] [place] [address] [place] HDL CHOLESTEROL, NF 78 mg/dL Normal >39 [facility] Comment on above: Order Comment: Speci men Type: BLOOD SPECIMENOrdering Facility: [facility] Address: [address] [place] [address] Result Comment: 40-5 9 mg/dL, Acceptable >59 mg/dL, High: Negative risk factor for coronary heart disease <40 mg/dL, Low: Positive risk factor for coronary heart disease Performed By: #### 1 9123-9, 09439-6, 6-4, LIPNF ####[facility] [id number] [address] OF [facility] LDL CHOLESTEROL, NF 143 mg/dL High <100 [facility] Comment on above: Order Comment: Speci men Type: BLOOD SPECIMENOrdering Facility: [facility] Address: [address] [place] [address] Result Comment: <100 mg/dL, Optimal 100-129 mg/dL, Near optimal/above optimal 130-159 mg/dL, Borderline high 160-189 mg/dL, High >189 mg/dL, Very high Secondary prevention optimal LDL Cholesterol levels are recommended to be < 70 mg/dL Performed By: #### 1 9123-9, 27596-3, 2275-4, LIPNF ####[facility] [id number] [place] [address] [place] LDL/HDL RATIO, NF 1.83 mg/dL Normal <2.54 [facility] Comment on above: Order Comment: Speci men Type: BLOOD SPECIMENOrdering Facility: [facility] Address: [address] [place] [address] Result Comment: Refe rence: 1. National Cholesterol Education Program ATP III Guideline At-A-Glance Quick Desk Reference: National Heart, Lung, and Blood [place]. National Institutes of Health. 2001: NIH Publication No. 01-3305. 2. An International Atherosclerosis Society position paper: global recommendations for the management of dyslipidemia: executive summary, Atherosclerosis. 2014: 232(2):410-413. Performed By: #### 1 9123-9, 54144-4, 2276-4, LIPNF ####[facility] [id number] [place] [address] [place] NON HDL CHOL, NF 160 mg/dL High <130 [facility] Comment on above: Order Comment: Speci men Type: BLOOD SPECIMENOrdering Facility: [facility] Address: [address] [place] [address] Result Comment: <130 mg/dL, Optimal 130-159 mg/dL, Near optimal/above optimal 160-189 mg/dL, Borderline high 190-219 mg/dL, High >219 mg/dL, Very high Secondary prevention optimal non HDL Cholesterol levels are recommended to be <100 mg/dL Performed By: #### 1 9123-9, 02201-3, 6-4, LIPNF ####[facility] [id number] [place] [address] [place] T CHOL/HDL RATIO NF 3.05 mg/dL Normal <5.10 [facility] Comment on above: Order Comment: Speci men Type: BLOOD SPECIMENOrdering Facility: [facility] Address: [address] [place] [address] Performed By: #### 1 9123-9, 64862-8, 6-4, LIPNF ####[facility] [id number] [place] [address] [place] TRIGLYCERIDES, NF 84 mg/dL Normal <150 [facility] Comment on above: Order Comment: Speci men Type: BLOOD SPECIMENOrdering Facility: [facility] Address: [address] [place] [address] Result Comment: <150 mg/dL, Normal 150-199 mg/dL, Borderline high 200-499 mg/dL, High >499 mg/dL, Very high Performed By: #### 1 9123-9, 94218-8, 2276-4, LIPNF ####[facility] [id number] [place] [address] [place] VLDL CHOLESTEROL, NF 17 mg/dL Normal <30 [facility] Comment on above: Order Comment: Speci men Type: BLOOD SPECIMENOrdering Facility: [facility] Address: [address] [place] [address] Performed By: #### 1 9123-9, 57583-2, 2276-4, LIPNF ####[facility] LABIA [id number] [place] [address] [place] Magnesium SerPl-mCncon 04-26 Magnesium [Mass/Vol] 2.6 mg/dL High 1.7-2.3 [facility] Comment on above: Order Comment: Speci men Type: BLOOD SPECIMENOrdering Facility: [facility] Address: [address] [place] [address] Performed By: #### 1 9123-9, 08904-7, 2276-4, LIPNF ####[facility] [id number] [place] [address] [place] URINALYSIS, REFLEX MICROSCOP ICon 04-26-2024 Bacteria uL uL High Negative uL [facility] Bilirubin Ql (U) Negative Negative [facility] Clarity (Unsp spec) Cloudy Abnormal Clear [facility] Color (U) Yellow Yellow [facility] Epithelial cells LM.HPF (Urine sed) [#/Area] None Seen /HPF [facility] Glucose Test strip (U) [Mass/Vol] Negative Negative [facility] Hemoglobin Ql (U) Trace Abnormal Negative [facility] Hyaline casts (Urine sed) [#/Area] 4-10 /LPF Abnormal 0 /LPF [facility] Interpretation and review of laboratory results Abnormal [facility] Ketones Ql (U) Negative Negative [facility] Leukocyte esterase Test strip Ql (U) 2+ Abnormal Negative [facility] Nitrite Ql (U) Positive Abnormal Negative [facility] pH (U) 6.5 [pH] NINF - 8.5 [facility] Protein (U) [Mass/Vol] Trace Abnormal Negative [facility] RBC LM.HPF (Urine sed) [#/Area] 3-5 /HPF Abnormal 0-2 /HPF [facility] Specific gravity (U) [Rel density] 1.018 1.005 - 1.030 [facility] Urobilinogen Ql (U) 0.2 EU/dL 0.2-1.0 EU/dL [facility] WBC LM.HPF (Urine sed) [#/Area] /[HPF] Abnormal 0-5 /HPF [facility] This test was devvicko ped and its performance characteristics determined by [facility]'s [facility] Pathology and Laboratory Medicine [place] ([facility]). It has not been cleared or approved by the FDA. -[facility] is regulated under CLIA as qualified to perform high-complexity testing. This test is used for clinical purposes. It should not be regarded as investigational or for research. [facility] BACTERIA UL >9821 High Negative [facility] Comment on above: Order Comment: Speci men Type: URINE SPECIMENOrdering Facility: [facility] Address: [address] [place] [address] Performed By: #### L [id number] ####[facility] LABIA [id number] [place] [address] [place] Bilirubin Ql (U) Negative Normal Negative [facility] Comment on above: Order Comment: Speci men Type: URINE SPECIMENOrdering Facility: [facility] Address: [address] [place] [address] Performed By: #### L [id number] ####[facility] LABIA [id number] [place] [address] [place] Clarity (Unsp spec) Cloudy Abnormal Clear [facility] Comment on above: Order Comment: Speci men Type: URINE SPECIMENOrdering Facility: [facility] Address: [address] [place] [address] Performed By: #### L [id number] ####[facility] [id number] [place] [address] [place] Color (U) Yellow Normal Yellow [facility] Comment on above: Order Comment: Speci men Type: URINE SPECIMENOrdering Facility: [facility] Address: [address] [place] [address] Performed By: #### L [id number] ####[facility] [id number] [place] [address] [place] Epithelial cells LM.HPF (Urine sed) [#/Area] None Seen Normal [facility] Comment on above: Order Comment: Speci men Type: URINE SPECIMENOrdering Facility: [facility] Address: [address] [place] [address] Performed By: #### L [id number] ####[facility]IA [id number] [place] [address] [place] Glucose Test strip (U) [Mass/Vol] Negative Normal Negative [facility] Comment on above: Order Comment: Speci men Type: URINE SPECIMENOrdering Facility: [facility] Address: [address] [place] [address] Performed By: #### L [id number] ####[facility]CL[facility] [id number] [place] [address] [place] Hemoglobin Ql (U) Trace Abnormal Negative [facility] Comment on above: Order Comment: Speci men Type: URINE SPECIMENOrdering Facility: [facility] Address: [address] [place] [address] Performed By: #### L [id number] ####[facility] [id number] [place] [address] [place] Hyaline casts (Urine sed) [#/Area] 4-10 /LPF Abnormal 0 /LPF [facility] Comment on above: Order Comment: Speci men Type: URINE SPECIMENOrdering Facility: [facility] Address: [address] [place] [address] Performed By: #### L [id number] ####[facility]CL[facility] [id number] [place] [address] [place] Ketones Ql (U) Negative Normal Negative [facility] Comment on above: Order Comment: Speci men Type: URINE SPECIMENOrdering Facility: [facility] Address: [address] [place] [address] Performed By: #### L [id number] ####[facility]IA [id number] [place] [address] [place] Leukocyte esterase Test strip Ql (U) 2+ Abnormal Negative [facility] Comment on above: Order Comment: Speci men Type: URINE SPECIMENOrdering Facility: [facility] Address: [address] [place] [address] Performed By: #### L [id number] ####[facility]CLIA [id number] [place] [address] [place] Nitrite Ql (U) Positive Abnormal Negative [facility] Comment on above: Order Comment: Speci men Type: URINE SPECIMENOrdering Facility: [facility] Address: [address] [place] [address] Performed By: #### L [id number] ####[facility] [id number] [place] [address] [place] pH (U) 6.5 [pH] Normal <8.5 [facility] Comment on above: Order Comment: Speci men Type: URINE SPECIMENOrdering Facility: [facility] Address: [address] [place] [address] Performed By: #### L [id number] ####[facility]CLIA [id number] [place] [address] [place] Protein (U) [Mass/Vol] Trace Abnormal Negative [facility] Comment on above: Order Comment: Speci men Type: URINE SPECIMENOrdering Facility: [facility] Address: [address] [place] [address] Performed By: #### L [id number] ####[facility] [id number] [place] [address] [place] RBC LM.HPF (Urine sed) [#/Area] 3-5 /HPF Abnormal 0-2 /HPF [facility] Comment on above: Order Comment: Speci men Type: URINE SPECIMENOrdering Facility: [facility] Address: [address] [place] [address] Performed By: #### L [id number] ####[facility] [id number] [place] [address] [place] Specific gravity (U) [Rel density] 1.018 Normal 1.005-1.03 0 [facility] Comment on above: Order Comment: Speci men Type: URINE SPECIMENOrdering Facility: [facility] Address: [address] [place] [address] Performed By: #### L [id number] ####[facility] [id number] [place] [address] [place] Urobilinogen Ql (U) 0.2 EU/dL Normal 0.2-1.0 EU/dL [facility] Comment on above: Order Comment: Speci men Type: URINE SPECIMENOrdering Facility: [facility] Address: [address] [place] [address] Performed By: #### L [id number] ####[facility] [id number] [place] [address] [place] WBC LM.HPF (Urine sed) [#/Area] /[HPF] Abnormal 0-5 /HPF [facility] Comment on above: Order Comment: Speci men Type: URINE SPECIMENOrdering Facility: [facility] Address: [address] [place] [address] Performed By: #### L [id number] ####[facility]CLIA [id number] [facility] [place] [address] [place] Vit B12 SerPl-mCncon 13-2 025 Cobalamin (Vitamin B12) [Mass/Vol] 1258 pg/mL High 232-1245 [facility] Comment on above: Order Comment: Speci men Type: BLOOD SPECIMEN [facility] Address: [address] [place] [address] Performed By: #### 2 132-9, 49758-2 #### [facility] CLIA [id number] [address] [place] [address] [place] CNPChelsea 04-08-2024 CNPN Telephone (FAMPWS) BHARTIBEHZAD Lugo ([id number]) 1940 F Date Time Provider Department 04/08/24 [...] Rash MACROBID (NITROFURANTOIN MONOHYD/*09/25/2018 2 - Rash [id number] REDUCTASE INHIBIT*10/06/2014 5 - Intolerance Date Reviewed: 04/05/2024 Reviewed by: Tasha Deutsch APRN.PROPERTY ADJUSTER - Fully Assessed Reason for Visit: Results [...] osteoarthritis of right hip [M16.11] 02/27/2017 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 (HCC) [[id number]] 07/28/2017 07/06/2018 Collagenous colitis [K52.831] 12/21/2018 IBS (irritable bowel syndrome) [K58.9] 12/21/2018 Hiatal hernia [K44.9] 09/11/2020 Fall from standing [W19.XXXA] 06/05/2021 Rotator cuff tear arthropathy, left [M75.102, M*10/29/2021 Paroxysmal atrial fibrillation (HCC) [I48.0] 04/11/2022 Primary hypertension [I10] 12/30/2022 Acute pain of right shoulder [M25.511] 04/16/2023 Severe pain of left shoulder [M25.512] 04/16/2023 Cervicalgia [M54.2] 04/16/2023 Encounter Status:Closed by MARA HATCH [facility]08/24 [facility]N Tele[facility] (FAMPWS) BHARTIBEHZAD Lugo ([id number]) 1940 F Date Time Provider Department 04/06/[facility] we recorded [...] Rash MACROBID (NITROFURANTOIN MONOHYD/*09/25/2018 2 - Rash [id number]-[id number] REDUCTASE INHIBIT*10/06/2014 5 - Intolerance Date Reviewed: 04/05/2024 Reviewed by: Tasha Deutsch APRN.PROPERTY ADJUSTER - Fully Assessed Reason for Visit: Results [...] osteoarthritis of right hip [M16.11] 02/27/2017 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 (HCC) [[id number]] 07/28/2017 07/06/2018 Collagenous colitis [K52.831] 12/21/2018 IBS (irritable bowel syndrome) [K58.9] 12/21/2018 Hiatal hernia [K44.9] 09/11/2020 Fall from standing [W19.XXXA] 06/05/2021 Rotator cuff tear arthropathy, left [M75.102, M*10/29/2021 Paroxysmal atrial fibrillation (HCC) [I48.0] 04/11/2022 Primary hypertension [I10] 12/30/2022 Acute pain of right shoulder [M25.511] 04/16/2023 Severe pain of left shoulder [M25.512] 04/16/2023 Cervicalgia [M54.2] 04/16/2023 Encounter Status:Closed by WINSOME BUTLER on 04/06/24 Normal [facility] Bacteria Ur Culton 4 Bacteria identified [...] , Intermediate >32 , Resistant >64 Abnormal [facility] Comment on above: Performed By: #### 2 4356-8, 630-4 ####[facility] [id number] [place] [id number] [place] CNOVon 04-05-2024 CNOV Office Visit (FAMPWS ) BEHZAD HAY ([id number]) 1940 F Date Time Provider Department 04/05/24 [...] Hiatal hernia History of esophagogastroduodenoscopy (EGD) 09/23/2014 [facility]: All normal HTN (hypertension) Hyperlipidemia, mixed [...] Bactrim [Sulfamethoxazole-Trimethop rim], Macrobid [Nitrofurantoin Monohyd/M-Cryst], and Qzwkcne-Ezb-Cjs Reductase Inhibitors MEDICATIONS Current Outpatient Medications Medication [...] Brother age 76 other (CVA) Brother other ([employer] shunt) Brother Hypertension Sister Diabetes Sister age [...] Exam Tati (more content not included)... Normal [facility] Urinalysis complete panel (U )on 04-05-2024 Bacteria LM.HPF (Urine sed) [#/Area] Negative Normal Negative [facility] Comment on above: Order Comment: Speci men Type: URINE SPECIMENOrdering Facility: [facility] Address: [address] [place] [address] Performed By: #### 2 4356-8, 434-4 ####[facility] LABCLIA [id number] [place] [address] [place] Bilirubin Ql (U) Negative Normal Negative [facility] Comment on above: Order Comment: Speci men Type: URINE SPECIMENOrdering Facility: [facility] Address: [address] [place] [address] Performed By: #### 2 4356-8, 933-4 ####[facility] LABCLIA [id number] [place] [address] [place] Clarity (Unsp spec) Clear Normal Clear [facility] Comment on above: Order Comment: Speci men Type: URINE SPECIMENOrdering Facility: [facility] Address: [address] [place] [address] Performed By: #### 2 4356-8, 804-4 ####[facility]CL[facility] [id number] [place] [address] [place] Color (U) Yellow Normal Yellow [facility] Comment on above: Order Comment: Speci men Type: URINE SPECIMENOrdering Facility: [facility] Address: [address] [place] [address] Performed By: #### 2 4356-8, 630-4 ####[facility]CL[facility] [id number] [place] [address] [place] Epithelial cells LM.HPF (Urine sed) [#/Area] None Seen Normal [facility] Comment on above: Order Comment: Speci men Type: URINE SPECIMENOrdering Facility: [facility] Address: [address] [place] [address] Performed By: #### 2 4356-8, 630-4 ####[facility] LABCLIA [id number] [place] [address] [place] Glucose Test strip (U) [Mass/Vol] Negative Normal Negative [facility] Comment on above: Order Comment: Speci men Type: URINE SPECIMENOrdering Facility: [facility] Address: [address] [place] [address] Performed By: #### 2 4356-8, 630-4 ####[facility] LABCLIA [id number] [place] [address] [place] Hemoglobin Ql (U) Trace Abnormal Negative [facility] Comment on above: Order Comment: Speci men Type: URINE SPECIMENOrdering Facility: [facility] Address: [address] [place] [address] Performed By: #### 2 4356-8, 630-4 ####[facility] LABCLIA [id number] [place] [address] [place] Hyaline casts (Urine sed) [#/Area] 1-3 /LPF Abnormal 0 /LPF [facility] Comment on above: Order Comment: Speci men Type: URINE SPECIMENOrdering Facility: [facility] Address: [address] [place] [address] Performed By: #### 2 4356-8, 630-4 ####[facility]CLIA [id number] [place] [address] [place] Ketones Ql (U) Negative Normal Negative [facility] Comment on above: Order Comment: Speci men Type: URINE SPECIMENOrdering Facility: [facility] Address: [address] [place] [address] Performed By: #### 2 4356-8, 630-4 ####[facility] LABCLIA [id number] [place] [address] [place] Leukocyte esterase Test strip Ql (U) 3+ Abnormal Negative [facility] Comment on above: Order Comment: Speci men Type: URINE SPECIMENOrdering Facility: [facility] Address: [address] [place] [address] Performed By: #### 2 4356-8, 630-4 ####[facility]CLIA [id number] [place] [address] [place] Nitrite Ql (U) Negative Normal Negative [facility] Comment on above: Order Comment: Speci men Type: URINE SPECIMENOrdering Facility: [facility] Address: [address] [place] [address] Performed By: #### 2 4356-8, 505-4 ####[facility] LABCLIA [id number] [place] [address] [place] pH (U) 6.5 [pH] Normal <8.5 [facility] Comment on above: Order Comment: Speci men Type: URINE SPECIMENOrdering Facility: [facility] Address: [address] [place] [address] Performed By: #### 2 4356-8, 630-4 ####[facility] LABCL[facility] [id number] [place] [address] [place] Protein (U) [Mass/Vol] Negative Normal Negative [facility] Comment on above: Order Comment: Speci men Type: URINE SPECIMENOrdering Facility: [facility] Address: [address] [place] [address] Performed By: #### 2 4356-8, 630-4 ####[facility] LABIA [id number] [place] [address] [place] RBC LM.HPF (Urine sed) [#/Area] 0-2 /HPF Normal 0-2 /HPF [facility] Comment on above: Order Comment: Speci men Type: URINE SPECIMENOrdering Facility: [facility] Address: [address] [place] [address] Performed By: #### 2 4356-8, 630-4 ####[facility] [id number] [place] [address] [place] Specific gravity (U) [Rel density] 1.008 Normal 1.005-1.03 0 [facility] Comment on above: Order Comment: Speci men Type: URINE SPECIMENOrdering Facility: [facility] Address: [address] [place] [address] Performed By: #### 2 4356-8, 630-4 ####[facility] LABIA [id number] [place] [address] [place] Urobilinogen Ql (U) 0.2 EU/dL Normal 0.2-1.0 EU/dL [facility] Comment on above: Order Comment: Speci men Type: URINE SPECIMENOrdering Facility: [facility] Address: [address] [place] [address] Performed By: #### 2 4356-8, 630-4 ####[facility] LABIA [id number] [place] [address] [place] WBC LM.HPF (Urine sed) [#/Area] /[HPF] Abnormal 0-5 /HPF [facility] Comment on above: Order Comment: Speci men Type: URINE SPECIMENOrdering Facility: [facility] Address: [address] [place] [address] Performed By: #### 2 4356-8, 630-4 ####[facility] LABIA [id number] [place] [id number] [place] Large Joint Arthro/Inj: L kn ee jointon 08-18-2023 Tamia Quezada PA -C 08/18/2023 11:44 AM Large Joint Arthro/Inj: L knee joint Informed Consent Consent Obtained: Verbal Perryman Protocol A moment to CARE was completed. [...] instruments, equipment or retained foreign bodies applicable. [facility] Basic metabolic 2000 panelon 08-15-2023 Anion gap [Moles/Vol] 10 mmol/L 9 - 18 mmol/L [facility] Calcium [Mass/Vol] 10.0 mg/dL 8.5 - 10. 2 mg/dL [facility] Chloride [Moles/Vol] 104 mmol/L 97 - 10 5 mmol/L [facility] CO2 [Moles/Vol] 26 mmol/L 22 - 30 mmol/L [facility] Creatinine [Mass/Vol] 0.81 mg/dL 0.58 - 0.96 mg/dL [facility] GFR/1.73 sq M.predicted among non-blacks MDRD (S/P/Bld) [Vol rate/Area] 71 mL/min/{1.73_m2} - PINF [facility] Comment on above: Estimated Glomerular Filtration [...] [Mass/Vol] 95 mg/dL 74 - 99 mg/dL [facility] Comment on above: The [place] Diab[employer] [place] Association (ADA) provides guidance for [...] Standards of Medical Care in Diabetes 2016, [place] [employer] Association. Diabetes Care. 2016.39(Suppl 1). Interpretation and review of laboratory results Normal [facility] Potassium [Moles/Vol] 4.8 mmol/L 3.7 - 5.1 mmol/L [facility] Sodium [Moles/Vol] 140 mmol/L 136 - 144 mmol/L [facility] Urea nitrogen [Mass/Vol] 17 mg/dL 7 - 21 mg/dL [facility] Large Joint Arthro/Inj: L kn ee jointon 08-11-2023 Tamia Quezada PA -C 08/11/2023 1:25 PM Large Joint Arthro/Inj: L knee joint Informed Consent Consent Obtained: Verbal Perryman Protocol A moment to CARE was completed. [...] instruments, equipment or retained foreign bodies applicable. [facility] Large Joint Arthro/Inj: L kn ee jointon 08-04-2023 Tamia Quezada PA -C 08/04/2023 11:37 AM Large Joint Arthro/Inj: L knee joint Informed Consent Consent Obtained: Verbal Perryman Protocol A moment to CARE was completed. [...] instruments, equipment or retained foreign bodies applicable. [facility] UA DIP, URINE (POC)on 2023 BILIRUBIN UA (POCT) Negative Negative [facility] CLARITY UA (POCT) Clear [facility] COLOR UA (POCT) Yellow [facility] GLUCOSE UA (POCT) Negative Negative mg/dL [facility] Hemoglobin Ql (U) Trace-intact Abnormal Negative [facility] KETONE UA (POCT) Negative Negative mg/dL [facility] LEUKOCYTES UA (POCT) Small Abnormal Negative [facility] NITRITE UA (POCT) Negative Negative [facility] PH UA (POCT) 5.5 4.5 - 8.0 [facility] Protein Ql (U) Negative Negative mg/dL [facility] SPECIFIC GRAVITY UA (POCT) 1.010 1.005 - 1.030 [facility] UROBILINOGEN UA (POCT) 0.2 E.U./dL Normal E.U./dL [facility] XR Knee - left [address] [facility] [address] Head WO contraston 2023 [facility] XR Shoulder - right 2 Viewso n 04-04-2023 IMPRESSION: Findings are suggestive of degenerative changes in the right shoulder, with rotator cuff arthropathy. Jigmaker: PSCB Transcribe Date/Time: Apr 04 2023 3:23P Dictated by : LILIAM ERIC MD This examination was interpreted and the report reviewed and electronically signed by: LILIAM ERIC MD on Apr 04 2023 3:27PM [facility] DIVISION OF RADIOLOGY * * *Final [...] supraspinatus tendon calcifications. DIVISION OF RADIOLOGY Provider, [facility] - 04/04/2023 * * *Final Report* * [...] the right shoulder, with rotator cuff arthropathy. Jigmaker: PSCB Transcribe Date/Time: Apr 04 2023 3:23P Dictated by : LILIAM ERIC MD This examination was interpreted and the report reviewed and electronically signed by: LILIAM ERIC MD on Apr 04 2023 3:27PM EST [facility] XR Shoulder - right 2 ViewsO rdered By: Ccf Provider on 04-04-2023 [facility] XR Shoulder - right 2 Viewso n 03-31-2023 Radiology Study observation (narrative) [facility] CBC panel Auto (Bld)on 10-11 Erythrocyte distribution width (RBC) [Ratio] 13.4 % 11.5 - 15.0 % [facility] Hematocrit (Bld) [Volume fraction] 40.4 % 36.0 - 46.0 % [facility] Hemoglobin (Bld) [Mass/Vol] 12.7 g/dL 11.5 - 15.5 g/dL [facility] MCH (RBC) [Entitic mass] 31.5 pg 26.0 - 34.0 pg [facility] MCHC (RBC) [Mass/Vol] 31.4 g/dL 30.5 - 36.0 g/dL [facility] MCV (RBC) [Entitic vol] 100.2 fL High 80.0 - 100.0 fL [facility] Nucleated RBC (Bld) [#/Vol] <0.01 k/uL [facility] Platelet mean volume (Bld) [Entitic vol] 9.3 fL 9.0 - 12.7 fL [facility] Platelets (Bld) [#/Vol] 351 10*3/uL 150 - 400 k/uL [facility] RBC (Bld) [#/Vol] 4.03 10*6/uL 3.90 - 5.20 m/uL [facility] WBC (Bld) [#/Vol] 5.97 10*3/uL 3.70 - 11.00 k/uL [facility] Comprehensive metabolic 2000 panelon 10-11-2022 Albumin [Mass/Vol] 4.2 g/dL 3.9 - 4.9 g/dL [facility] ALP [Catalytic activity/Vol] 83 U/L 34 - 123 U/L [facility] ALT [Catalytic activity/Vol] 19 U/L 7 - 38 U/L [facility] Anion gap [Moles/Vol] 9 mmol/L 9 - 18 mmol/L [facility] AST [Catalytic activity/Vol] 22 U/L 13 - 35 U/L [facility] [facility] Bilirubin [Mass/Vol] 0.2 mg/dL 0.2 - 1 .3 mg/dL [facility] Calcium [Mass/Vol] 9.9 mg/dL 8.5 - 10. 2 mg/dL [facility] Chloride [Moles/Vol] 104 mmol/L 97 - 10 5 mmol/L [facility] CO2 [Moles/Vol] 30 mmol/L 22 - 30 mmol/L [facility] Creatinine [Mass/Vol] 0.90 mg/dL 0.58 - 0.96 mg/dL [facility] Estimated Glomerular Filtration Rate 63 mL/min/1.73m >=60 mL/min/1.7 3m [facility] Glucose [Mass/Vol] 99 mg/dL 74 - 99 mg/dL [facility] Potassium [Moles/Vol] 4.9 mmol/L 3.7 - 5.1 mmol/L [facility] Protein [Mass/Vol] 6.4 g/dL 6.3 - 8.0 g/dL [facility] Sodium [Moles/Vol] 143 mmol/L 136 - 144 mmol/L [facility] Urea nitrogen [Mass/Vol] 16 mg/dL 7 - 21 mg/dL [facility] FERRITIN BLDon 10-11-2022 Ferritin [Mass/Vol] 46.0 ng/mL 14.7 - 205.1 ng/mL [facility] Iron and Iron binding capaci ty panelon 10-11-2022 Iron [Mass/Vol] 69 ug/dL 41 - 186 ug/dL [facility] Iron binding capacity [Mass/Vol] 322 ug/dL 232 - 386 ug/dL [facility] Iron/TIBC [Molar ratio] 21.4 % 15.0 - 57.0 % [facility] Lipid 1996 panelon Cholesterol [Mass/Vol] 241 mg/dL High <200 mg/dL [facility] Cholesterol in HDL [Mass/Vol] 72 mg/dL >39 mg/dL [facility] Cholesterol in LDL [Mass/Vol] 140 mg/dL High <100 mg/dL [facility] Cholesterol in LDL/Cholesterol in HDL [Mass ratio] 1.94 {ratio} <2.54 [facility] Cholesterol in VLDL [Mass/Vol] 29 mg/dL <30 mg/dL [facility] Cholesterol non HDL [Mass/Vol] 169 mg/dL High <130 mg/dL [facility] Cholesterol.total/Cho lesterol in HDL [Mass ratio] 3.35 {ratio} <5.10 [facility] Fasting Time 14 hrs [facility] Triglyceride [Mass/Vol] 146 mg/dL <150 mg/dL [facility] MAGNESIUM Don 10-11-2022 Magnesium [Mass/Vol] 2.3 mg/dL 1.7 - 2 .3 mg/dL [facility] PTH INTACT BLDon 10-11-2022 Parathyrin.intact [Mass/Vol] 36 pg/mL 15 - 65 pg/mL [facility] VITAMIN D 25 HYDROXYon 10-11 25-hydroxyvitamin D3 [Mass/Vol] 65.1 ng/mL 31.0 - 80.0 ng/mL [facility] ECHOon 04-16-2022 [facility] ESR Westergren method (Bld) [Velocity]on 04-12-2022 ESR (Bld) [Velocity] 31 mm/h High 0 - 20 mm/hr [facility] FERRITIN BLDon 04-12-2022 Ferritin [Mass/Vol] 65.8 ng/mL 14.7 - 205.1 ng/mL [facility] Iron and Iron binding capaci ty panelon 04-12-2022 Iron [Mass/Vol] 79 ug/dL 41 - 186 ug/dL [facility] Iron binding capacity [Mass/Vol] 360 ug/dL 232 - 386 ug/dL [facility] Iron/TIBC [Molar ratio] 21.9 % 15.0 - 57.0 % [facility] Absolute lymphocyte counton 04-07-2022 Lymphocytes Auto (Unsp spec) [#/Vol] 1.40 10*3/uL 0.83-4.51 [facility] Work Phone: Basophil percentageon 2021 Basophils/100 WBC (Bld) 1.1 % 0-1 [facility] Work Phone: Chloride [Moles/Vol] 107 mmol/L 98-107 [facility] Work Phone: Eosinophils/100 WBC (Bld) 1.9 % 0-5 [facility] Work Phone: Glucose [Mass/Vol] 133 mg/dL 74-106 [facility] Work Phone: Comment on above: Fasting Glucose resu lt greater than or equal to 126 mg/dL suggests DIABETES MELLITUS per A.D.A. criteria. Neutrophils (Bld) [#/Vol] 7.1 10*3/uL 2.0-7.7 [facility] Work Phone: Neutrophils/100 WBC (Bld) 74.4 % 47-70 [facility] Work Phone: Potassium [Moles/Vol] 3.9 mmol/L 3.5-5.1 [facility] Work Phone: Sodium [Moles/Vol] 142 mmol/L 136-145 [facility] Work Phone: WBC (Bld) [#/Vol] 9.5 10*3/uL 4.4-11.0 [facility] Work Phone: Blood erythrocytes count (nu mber/volume)on 04-07-2022 RBC (Bld) [#/Vol] 4.16 10*6/uL 4.2-5.4 [facility] Work Phone: Blood hemoglobin measurement (mass/volume)on 04-07-2022 Hemoglobin (Bld) [Mass/Vol] 13.6 g/dL 12.0-15.0 [facility] Work Phone: Blood lymphocytes/100 leukoc yteson 04-07-2022 Lymphocytes/100 WBC (Bld) 14.7 % 19-41 [facility] Work Phone: [phone] Blood monocytes/100 leukocyt eson 04-07-2022 Monocytes/100 WBC (Bld) 7.6 % 0-10 [facility] Work Phone: [phone] Blood platelet mean volumeon 04-07-2022 Platelet mean volume (Bld) [Entitic vol] 8.6 fL 6.2-12.0 [facility] Work Phone: [phone] Determination of erythrocyte mean corpuscular volume (MCV)on 04-07-2022 MCV (RBC) [Entitic vol] 97.8 fL 81-99 [facility] Work Phone: [phone] Hematocrit Auto (Bld) [Volum e fraction]on 04-07-2022 Hematocrit (Bld) [Volume fraction] 40.7 % 37-47 [facility] Work Phone: [phone] Laboratory - Chemistry and C hemistry - challengeon 04-07-2022 CO2 [Moles/Vol] 30.0 mmol/L 21.0-32.0 [facility] Work Phone: [phone] Urea nitrogen/Creatinine [Mass ratio] 18.8 mg/mg 10-20 [facility] Work Phone: [phone] Laboratory - Hematology and Cell countson 04-07-2022 Erythrocyte distribution width (RBC) [Entitic vol] 44.9 fL 35.1-43.9 [facility] Work Phone: [phone] Erythrocyte distribution width (RBC) [Ratio] 12.4 % 11.6-14.6 [facility] Work Phone: [phone] Immature granulocytes/100 WBC (Bld) 0.300 % 0.0-0.9 [facility] Work Phone: [phone] Comment on above: IG% - Immature Granu locytes (promyelocytes, myelocytes and metamyelocytes) > 1% indicates that a LEFT SHIFT is Present. MCH (RBC) [Entitic mass] 32.7 pg 27.0-32.0 [facility] Work Phone: [phone] Nucleated RBC/100 WBC (Bld) [Ratio] 0 % 0-5 [facility] Work Phone: [phone] MCHC Auto (RBC) [Mass/Vol]on 04-07-2022 MCHC (RBC) [Mass/Vol] 33.4 g/dL 32-36 [facility] Work Phone: No Panel Informationon 04-07 Estimated Creatinine Clearance Calc 29.78 ml/min [facility] Work Phone: [phone] Estimated GFR (MDRD) Amer 67 mL/min >60 [facility] Work Phone: [phone] Comment on above: GFR Calc Estimated GFR (MDRD) Non-Af Amer 56 mL/min >60 [facility] Work Phone: [phone] Comment on above: Non- GFR Calc Thyroid Stimulating Hormone (TSH) 1.51 uIU/mL 0.358-3.74 [facility] Work Phone: [phone] Troponin I High Sensitivity 16 pg/mL 3.0-54.0 [facility] Work Phone: [phone] Comment on above: Please Note: New [place] t Units and Gender Specific Reference Ranges. For more information see Policy Stat Procedure [place] High Sensitivity Troponin (TNIH) and attachments. Platelets bldon 04-07-2022 Platelets (Bld) [#/Vol] 305 10*3/uL 150-450 [facility] Work Phone: [phone] Serum or plasma calcium camilo urement (mass/volume)on 04-07-2022 Calcium [Mass/Vol] 8.9 mg/dL 8.5-10.1 [facility] Work Phone: [phone] Serum or plasma creatinine m easurement (mass/volume)on 04-07-2022 Creatinine [Mass/Vol] 1.01 mg/dL 0.55-1.02 [facility] Work Phone: [phone] Comment on above: The validity of the calculated GFR & GFRAA in patients over 70 years has not been determined. Clinical correlation is essential. Serum or plasma urea nitroge n measurement (mass/volume)on 04-07-2022 Urea nitrogen [Mass/Vol] 19 mg/dL 7-18 [facility] Work Phone: Thin prep Papanicolaou smear with manual screeningon 04-07-2022 Thin prep Papanicolaou smear with manual screening 5 5-15 [facility] Work Phone: Clinical Summary: Suman ibarra 06-22-2021 75 OP Visit Invalid Interpretation Code [facility] [place] [facility] Work Phone: No Panel Informationon 06-13 Radiology Study observation (narrative) [facility] XR Femur - left AP and Later imelda 06-13-2021 IMPRESSION: No acute process is seen. Degenerative changes of the left knee. Jigmaker: STAN Transcribe Date/Time: Jun 13 2021 3:45P Dictated by : ENDER OHARA MD This examination was interpreted and the report reviewed and electronically signed by: ENDER OHARA MD on Jun 13 2021 3:47PM [facility] DIVISION OF RADIOLOGY * * *Final [...] narrowing and spurring. DIVISION OF RADIOLOGY Provider, [facility] - 06/13/2021 * * *Final Report* [...] seen. Degenerative changes of the left knee. Jigmaker: STAN Transcribe Date/Time: Jun 13 2021 3:45P Dictated by : ENDER OHARA MD This examination was interpreted and the report reviewed and electronically signed by: ENDER OHARA MD on Jun 13 2021 3:47PM EST [facility] XR Pelvis and Hip - left AP and Lateral frogon 06-13-2021 IMPRESSION: LEFT total hip arthroplasty without complication. Jigmaker: [facility] Transcribe Date/Time: Jun 13 2021 3:46P Dictated [...] and maintained. Arteriolosclerosis. DIVISION OF RADIOLOGY Provider, [facility] - 06/13/2021 * * *Final [...] IMPRESSION: LEFT total hip arthroplasty without complication. Jigmaker: STAN Transcribe Date/Time: Jun 13 2021 3:46P Dictated by : ZEN HANSON DO This examination was interpreted and the report reviewed and electronically signed by: ZEN HANSON DO on Jun 13 2021 3:49PM [facility] XR Pelvis and Hip - left AP and Lateral frogOrdered By: [facility] Provider on 06-13-2021 [facility] CNTHERAPYon 11-12-2016 CNTHERAPY OT/PT/Speech Visit ([facility]) ------BEHZAD HAY ([id number]) 1940 FDate Time Provider Department11/12/16 12:45 PM OSVALDO MUELLER (OT) [facility]ounter Number: [id number] Time Provider Department [place]11/12/2016 12:45 PM [id number] MUELLER *[facility] Chrismichele Sargent for Visit: Occupational Therapy [504]Primary Visit Diagnosis:Spontaneous rupture of extensor tendon of left hand [M66.242]Allergies As of Date: 11/12/2016 Noted Allergy ReactionADHESIVE TAPE (ROSINS) 08/27/2011 2 - NvzuMDGGAIZ-QVW-IIY REDUCTASE INHIBIT*10/06/2014 5 - IntoleranceDate Reviewed: 09/23/2016Reviewed by: Aida Narayanan Ma - Fully AssessedPrescriptions as of 11/12/2016 Sig: ETODOLAC 400 MG TABLET Take 1 tablet by mouth twice * ASPIRIN 81 MG TABLET,DELAYED * Take 1 tablet by mouth once d* VITAMIN E 400 UNIT CAPSULE Take 1 capsule by mouth once * CYANOCOBALAMIN (VIT B-12) 2,5* Dissolve 1 tablet under the t* [id number] C-M* Take 1 capsule by mouth three* [...] d*Progress Notes:JOSÉ Tucker 11/12/2016 1:33 PM Betzaida [id number] 2016[facility] REHABILITATION AND SPORTS THERAPYOT HAND AND UPPER [...] to strengthening and functionalactivities as able, progress reportBilling:[place]: hand splintTotal time: 30 minutesVerjudah Mueller OT/Filippo,CHT ------- Normal [facility] PROGRESSon 11-12-2016 PROGRESS HNO ID: [id number] thor: Osvaldo (Ina MuellerService: (none)Author Type: Occupational TherapistType: Progress NotesFiled: 11/12/2016 1:33 PMNote Text:Behzad [id number] 2016[facility] REHABILITATION AND SPORTS THERAPYOT HAND AND UPPER [...] hand splintTotal time: 30 minutesOsvaldo Mueller OT/L,CHT [facility] CNTHERAPYon 10-17-2016 CNTHERAPY [facility] ------TYLERBEHZAD JONES ([id number]) 1940 FDate Time Provider Department10/17/16 3:45 PM OSVALDO MUELLER (OT) [facility]Encounter Number: [id number] Time Provider Department [place]10/17/2016 3:45 PM [id number] MUELLER [facility] CReason for Visit: OT EVAL [748]Primary Visit Diagnosis:Injury of extensor tendon of left hand, subsequent encounter [S66.902D] Other Visit Diagnosis:Spontaneous rupture of extensor tendon of left hand [M66.242]Allergies As of Date: 10/17/2016 Noted Allergy ReactionADHESIVE TAPE (ROSINS) 08/27/2011 2 - AnyoHOBDKXY-YRZ-GKG REDUCTASE INHIBIT*10/06/2014 5 - IntoleranceDate Reviewed: 09/23/2016Reviewed by: Aida Narayanan Ma - Fully AssessedPrescriptions as of 10/17/2016 Sig: ETODOLAC 400 MG TABLET Take 1 tablet by mouth twice * ASPIRIN 81 MG TABLET,DELAYED * Take 1 tablet by mouth once d* VITAMIN E 400 UNIT CAPSULE Take 1 capsule by mouth once * CYANOCOBALAMIN (VIT B-12) 2,5* Dissolve 1 tablet under the t* [id number] C-M* Take 1 capsule by mouth three* [...] Notes:JOSÉ Tucker 10/17/2016 4:37 PM Signed[facility] RE[facility] AND SPORTS THERAPYOCCUPATIONAL THERAPY HAND EVALUATIONGENERAL [...] having surgery in handPatient Reported Outcome Measures: [facility] Daily Activity - AdaptedSee PT/OT Health Status [...] to light touch:Dexterity / Coordination:Observed to be WFL.Strength:[employer] Strength: 2 RIGHT 25lbs. LEFT 25lbs.Functional Tests:Evidence [...] OT Services: Evaluation - Low Complexity ( 47832)Self Care / Home Management (63933): 1:1 time: 10 minutes (1 unit: 8-22 mins)Orthosis: Fabrication time for custom splint: 15 minutesCustom: L3933 FO custom (fingers only/ mallet/ tip protector/ other) Proofof Delivery Provided: yesTotal time: 40 minutesVerjudah Mueller OT/Filippo,T ------- [facility] PROGRESSon 10-17-2016 PROGRESS HNO ID: [id number] thor: Osvaldo Villalobos: (none)Author Type: Occupational TherapistType: Progress NotesFiled: 10/17/2016 4:37 PMNote Text:[facility] REHABILITATION AND SPORTS THERAPYOCCUPATIONAL THERAPY HAND EVALUATIONGENERAL [...] having surgery in handPatient Reported Outcome Measures: [facility] Daily Activity - AdaptedSee PT/OT Health Status [...] to light touch:Dexterity / Coordination:Observed to be WFL.Strength:[employer] Strength: 2 RIGHT 25lbs. LEFT 25lbs.Functional Tests:Evidence [...] Scale Score Carrying, Moving and Handling Objects: H2674Zqbwxbhi, Moving and Handling Objects: G8985 NAEvaluation10/17/2016 58 CJ 20-39% impaired CI 1-19% impaired NABased on clinical assessment and the score on the AM-PAC Scale ScoreAssessment Tool, the G code and corresponding severity modifiers aredocumented above.Billing: OT Services: Evaluation - Low Complexity ( 18138)Self Care / Home Management (70234): 1:1 time: 10 minutes (1 unit: 8-22mins)Orthosis: Fabrication time for custom splint: 15 minutesCustom: L3933 FO custom (fingers only/ mallet/ tip protector/ other)Proof of Delivery Provided: yesTotal time: 40 minutesVeronica Ervin, OT/L,CHT [facility] Large Joint Arthro/Inj: L kn ee joint [facility] Vital Signs Date Time Vital Sign Value Performing Clinician Giuseppe engle 11-16-2024 09:02-0400 Heart rate 83 /min Curt Diallo MD Work Phone: [facility] 11-16-2024 09:02-0400 SaO2% (BldA) [Mass fraction] 98 % Curt Diallo MD Work Phone: [facility] 11-16-2024 09:00-0400 Body mass index (BMI) [Ratio] 23.32 kg/m2 Curt Diallo MD Work Phone: [facility] 11-16-2024 09:00-0400 Body weight 54.16 kg Curt Diallo MD Work Phone: [facility] 11-16-2024 08:33-0400 Body temperature 97.59 [degF] Curt Diallo MD Work Phone: [facility] 11-16-2024 08:33-0400 Diastolic blood pressure 73 mm[Hg] Curt Diallo MD Work Phone: [facility] 11-16-2024 08:33-0400 Respiratory rate 18 /min Curt Diallo MD Work Phone: [facility] 11-16-2024 08:33-0400 Systolic blood pressure 121 mm[Hg] Curt Diallo MD Work Phone: [facility] 10-19-2024 09:30-0400 Body height 152.4 cm Curt Diallo MD Work Phone: [facility] 10-18-2024 12:27-0400 Body temperature 98.6 [degF] Dr. Ricki Reyes MD Work Phone: [facility] 10-18-2024 12:27-0400 Diastolic blood pressure 103 mm[Hg] Dr. Ricki Reyes MD Work Phone: [phone] [place] [address] 10-18-2024 12:27-0400 Heart rate 89 /min Dr. Ricki Reyes MD Work Phone: [phone] [place] [address] 10-18-2024 12:27-0400 Respiratory rate 16 /min Dr. Ricki Reyes MD Work Phone: [phone] [address] 10-18-2024 12:27-0400 SaO2% (BldA) [Mass fraction] 98 % Dr. Ricki Reyes MD Work Phone: [phone] [address] 10-18-2024 12:27-0400 Systolic blood pressure 132 mm[Hg] Dr. Ricki Reyes MD Work Phone: [phone] [address] 10-18-2024 11:46-0400 Body mass index (BMI) [Ratio] 20.8 kg/m2 Dr. Ricki Reyes MD Work Phone: [phone] [place] [address] 10-18-2024 11:46-0400 Body weight 51.[address] Ricki Reyes MD Work Phone: [facility] 10-18-2024 11:45-0400 Body height 157.[address] Ricki Reyes MD Work Phone: [facility] 10-14-2024 10:38-0400 Body temperature 97.5 [degF] Nori Tafoya CCC-FULL SERVICE SUPERVISOR Work Phone: [facility] 10-14-2024 10:38-0400 Diastolic blood pressure 62 mm[Hg] Nori Tafoya CCC-FULL SERVICE SUPERVISOR Work Phone: [facility] 10-14-2024 10:38-0400 Heart rate 50 /min Nori Eickholt CCC-FULL SERVICE SUPERVISOR Work Phone: [facility] 10-14-2024 10:38-0400 SaO2% (BldA) [Mass fraction] 99 % Nori Dontrellolt CCC-FULL SERVICE SUPERVISOR Work Phone: [facility] 10-14-2024 10:38-0400 Systolic blood pressure 112 mm[Hg] Nori Dontrellolt CCC-FULL SERVICE SUPERVISOR Work Phone: [facility] 10-13-2024 11:53-0400 Body temperature 97.7 [degF] Nori Dontrellolt CCC-FULL SERVICE SUPERVISOR Work Phone: [facility] 10-13-2024 11:53-0400 Diastolic blood pressure 70 mm[Hg] Nori Dontrellolt CCC-FULL SERVICE SUPERVISOR Work Phone: [facility] 10-13-2024 11:53-0400 Heart rate 55 /min Nori Dontrellolt CCC-FULL SERVICE SUPERVISOR Work Phone: [facility] 10-13-2024 11:53-0400 SaO2% (BldA) [Mass fraction] 98 % Nori Dontrellolt CCC-FULL SERVICE SUPERVISOR Work Phone: [facility] 10-13-2024 11:53-0400 Systolic blood pressure 138 mm[Hg] Nori Dontrellolt CCC-FULL SERVICE SUPERVISOR Work Phone: [facility] 10-13-2024 11:11-0400 Heart rate 55 /min Yola Macnes ALCAZAR/L Work Phone: [facility] Comment on above: post tasks 10-13-2024 11:11-0400 SaO2% (BldA) [Mass fraction] 95 % Yola Nj ALCAZAR/L Work Phone: [facility] Comment on above: post tasks 10-13-2024 10:41-0400 Body temperature 98.6 [degF] Yolafilemon Macnes ALCAZAR/L Work Phone: [facility] 10-13-2024 10:41-0400 Diastolic blood pressure 80 mm[Hg] Yola Nj ALCAZAR/L Work Phone: [facility] 10-13-2024 10:41-0400 Respiratory rate 16 /min Yola Nj ALCAZAR/L Work Phone: [facility] 10-13-2024 10:41-0400 Systolic blood pressure 134 mm[Hg] Yola Nj ALCAZAR/L Work Phone: [facility] 10-12-2024 11:33-0400 Body mass index (BMI) [Ratio] 21.58 kg/m2 Tasha Suppan COOPERATIVE EDUCATION COORDINATOR.PROPERTY ADJUSTER Work Phone: [facility] 10-12-2024 11:33-0400 Body temperature 97.59 [degF] Tasha Suppan COOPERATIVE EDUCATION COORDINATOR.PROPERTY ADJUSTER Work Phone: [facility] 10-12-2024 11:33-0400 Body weight 53.52 kg Tasha Suppan COOPERATIVE EDUCATION COORDINATOR.PROPERTY ADJUSTER Work Phone: [facility] 10-12-2024 11:33-0400 Diastolic blood pressure 82 mm[Hg] Tasha Suppan COOPERATIVE EDUCATION COORDINATOR.PROPERTY ADJUSTER Work Phone: [facility] 10-12-2024 11:33-0400 Heart rate 60 /min Tasha Suppan COOPERATIVE EDUCATION COORDINATOR.PROPERTY ADJUSTER Work Phone: [facility] 10-12-2024 11:33-0400 SaO2% (BldA) [Mass fraction] 98 % Tasha Suppan COOPERATIVE EDUCATION COORDINATOR.PROPERTY ADJUSTER Work Phone: [facility] 10-12-2024 11:33-0400 Systolic blood pressure 138 mm[Hg] Tasha Suppan COOPERATIVE EDUCATION COORDINATOR.PROPERTY ADJUSTER Work Phone: [facility] 10-12-2024 09:29-0400 Body height 157.[address] Ricki Reyes MD Work Phone: [facility] 10-12-2024 09:29-0400 Body mass index (BMI) [Ratio] 21.7 kg/m2 Dr. Ricki Reyes MD Work Phone: [facility] 10-12-2024 09:29-0400 Body weight 53.[address] Ricki Reyes MD Work Phone: [facility] 10-12-2024 09:29-0400 Diastolic blood pressure 63 mm[Hg] Dr. Ricki Reyes MD Work Phone: [facility] 10-12-2024 09:29-0400 Heart rate 53 /min Dr. Ricki Reyes MD Work Phone: [facility] 10-12-2024 09:29-0400 Respiratory rate 16 /min Dr. Ricki Reyes MD Work Phone: [facility] 10-12-2024 09:29-0400 Systolic blood pressure 129 mm[Hg] Dr. Ricki Reyes MD Work Phone: [facility] 10-11-2024 14:55-0400 Body temperature 98.2 [degF] Meseret Cruzman-Lopes PT Work Phone: [facility] 10-11-2024 14:55-0400 Diastolic blood pressure 76 mm[Hg] Meseret Halderman-Lopes PT Work Phone: [facility] 10-11-2024 14:55-0400 Heart rate 67 /min Meseret Halderman-Lopes PT Work Phone: [facility] 10-11-2024 14:55-0400 Respiratory rate 16 /min Meseret Halderman-Lopes PT Work Phone: [facility] 10-11-2024 14:55-0400 SaO2% (BldA) [Mass fraction] 99 % Meseret Halderman-Lopes PT Work Phone: [facility] 10-11-2024 14:55-0400 Systolic blood pressure 138 mm[Hg] Meseret Halderman-Lopes PT Work Phone: [facility] 10-11-2024 11:59-0400 Heart rate 79 /min Yola ALCAZAR/L Work Phone: [facility] Comment on above: post tasks 10-11-2024 11:59-0400 SaO2% (BldA) [Mass fraction] 97 % Yola Nj ALCAZAR/L Work Phone: [facility] Comment on above: post tasks 10-11-2024 11:36-0400 Body temperature 97.9 [degF] Yola Nj ALCAZAR/L Work Phone: [facility] 10-11-2024 11:36-0400 Diastolic blood pressure 80 mm[Hg] Yola Nj ALCAZAR/L Work Phone: [facility] 10-11-2024 11:36-0400 Respiratory rate 16 /min Yola Nj ALCAZAR/L Work Phone: [facility] 10-11-2024 11:36-0400 Systolic blood pressure 128 mm[Hg] Yola Nj ALCAZAR/L Work Phone: [facility] 10-08-2024 12:21-0400 Heart rate 64 /min Yola Nj ALCAZAR/L Work Phone: [facility] Comment on above: post tasks 10-08-2024 12:21-0400 SaO2% (BldA) [Mass fraction] 99 % Yola Nj ALCAZAR/L Work Phone: [facility] Comment on above: post tasks 10-08-2024 11:51-0400 Body temperature 97.59 [degF] Yola Nj ALCAZAR/L Work Phone: [facility] 10-08-2024 11:51-0400 Diastolic blood pressure 70 mm[Hg] Yola Nj ALCAZAR/L Work Phone: [facility] 10-08-2024 11:51-0400 Respiratory rate 16 /min Yola Nj ALCAZAR/L Work Phone: [facility] 10-08-2024 11:51-0400 Systolic blood pressure 130 mm[Hg] Yola Nj ALCAZAR/L Work Phone: [facility] 10-07-2024 11:55-0400 Body temperature 98.71 [degF] Merry Gale CCC-FULL SERVICE SUPERVISOR Work Phone: [facility] 10-07-2024 11:55-0400 Diastolic blood pressure 84 mm[Hg] Merry Gale CCC-FULL SERVICE SUPERVISOR Work Phone: [facility] 10-07-2024 11:55-0400 Heart rate 72 /min Merkonstantin Gale CCC-FULL SERVICE SUPERVISOR Work Phone: [facility] 10-07-2024 11:55-0400 Respiratory rate 16 /min Merry Gale CCC-FULL SERVICE SUPERVISOR Work Phone: [facility] 10-07-2024 11:55-0400 SaO2% (BldA) [Mass fraction] 95 % Merkonstantin Gale CCC-FULL SERVICE SUPERVISOR Work Phone: [facility] 10-07-2024 11:55-0400 Systolic blood pressure 128 mm[Hg] Moni Adriane CCC-FULL SERVICE SUPERVISOR Work Phone: [facility] 10-06-2024 11:19-0400 Heart rate 71 /min Yola Nj ALCAZAR/L Work Phone: [facility] Comment on above: post tasks 10-06-2024 11:19-0400 SaO2% (BldA) [Mass fraction] 99 % Yola Nj ALCAZAR/L Work Phone: [facility] Comment on above: post tasks 10-06-2024 10:43-0400 Body temperature 97.7 [degF] Yola Nj ALCAZAR/L Work Phone: [facility] 10-06-2024 10:43-0400 Diastolic blood pressure 66 mm[Hg] Yola Nj ALCAZAR/L Work Phone: [facility] 10-06-2024 10:43-0400 Respiratory rate 16 /min Yola Nj ALCAZAR/L Work Phone: [facility] 10-06-2024 10:43-0400 Systolic blood pressure 130 mm[Hg] Yola Nj ALCAZAR/L Work Phone: [facility] 06-25-2025 10:01-0400 Body temperature 98.2 [degF] Jocelyn RN Work Phone: [facility] 10-06-2024 10:01-0400 Diastolic blood pressure 64 mm[Hg] Jocelyn Most RN Work Phone: [facility] 10-06-2024 10:01-0400 Heart rate 76 /min Jocelyn Most RN Work Phone: [facility] 10-06-2024 10:01-0400 Respiratory rate 16 /min Jocelyn Most RN Work Phone: [facility] 10-06-2024 10:01-0400 SaO2% (BldA) [Mass fraction] 98 % Jocelyn Most RN Work Phone: [facility] 10-06-2024 10:01-0400 Systolic blood pressure 108 mm[Hg] Jocelyn Most RN Work Phone: [facility] 10-04-2024 16:25-0400 Body temperature 98.8 [degF] Merry Gale CCC-FULL SERVICE SUPERVISOR Work Phone: [facility] 10-04-2024 16:25-0400 Diastolic blood pressure 70 mm[Hg] Merry Gale CCC-FULL SERVICE SUPERVISOR Work Phone: [facility] 10-04-2024 16:25-0400 Heart rate 55 /min Merry Gale CCC-FULL SERVICE SUPERVISOR Work Phone: [facility] 10-04-2024 16:25-0400 Respiratory rate 16 /min Merry Gale CCC-FULL SERVICE SUPERVISOR Work Phone: [facility] 10-04-2024 16:25-0400 SaO2% (BldA) [Mass fraction] 92 % Merry Gale CCC-FULL SERVICE SUPERVISOR Work Phone: [facility] 10-04-2024 16:25-0400 Systolic blood pressure 134 mm[Hg] Merry Gale CCC-FULL SERVICE SUPERVISOR Work Phone: [facility] 10-04-2024 14:17-0400 Heart rate 95 /min Scarlett Archie BOUFFANT CURTAIN MACHINE TENDER Work Phone: [facility] Comment on above: w ex 10-04-2024 14:17-0400 SaO2% (BldA) [Mass fraction] 99 % Scarlett Archie BOUFFANT CURTAIN MACHINE TENDER Work Phone: [facility] 10-04-2024 14:08-0400 Body temperature 97.9 [degF] Scarlett Archie BOUFFANT CURTAIN MACHINE TENDER Work Phone: [facility] 10-04-2024 14:08-0400 Diastolic blood pressure 68 mm[Hg] Scarlett Archie BOUFFANT CURTAIN MACHINE TENDER Work Phone: [facility] 10-04-2024 14:08-0400 Respiratory rate 18 /min Scarlett Archie BOUFFANT CURTAIN MACHINE TENDER Work Phone: [facility] 10-04-2024 14:08-0400 Systolic blood pressure 130 mm[Hg] Scarlett Archie BOUFFANT CURTAIN MACHINE TENDER Work Phone: [facility] 10-04-2024 10:30-0400 Body mass index (BMI) [Ratio] 20.85 kg/m2 Tasha Suppan COOPERATIVE EDUCATION COORDINATOR.PROPERTY ADJUSTER Work Phone: [facility] 10-04-2024 10:30-0400 Body weight 51.71 kg Tasha Suppan COOPERATIVE EDUCATION COORDINATOR.PROPERTY ADJUSTER Work Phone: [facility] 10-04-2024 10:30-0400 Diastolic blood pressure 62 mm[Hg] Tasha Suppan COOPERATIVE EDUCATION COORDINATOR.PROPERTY ADJUSTER Work Phone: [facility] 10-04-2024 10:30-0400 Heart rate 46 /min Tasha Suppan COOPERATIVE EDUCATION COORDINATOR.PROPERTY ADJUSTER Work Phone: [facility] 10-04-2024 10:30-0400 SaO2% (BldA) [Mass fraction] 98 % Tasha Suppan COOPERATIVE EDUCATION COORDINATOR.PROPERTY ADJUSTER Work Phone: [facility] 10-04-2024 10:30-0400 Systolic blood pressure 136 mm[Hg] Tasha Suppan COOPERATIVE EDUCATION COORDINATOR.PROPERTY ADJUSTER Work Phone: [facility] 10-04-2024 09:07-0400 Body temperature 98.7 [degF] Dr. Ricki Reyes MD Work Phone: [facility] 10-04-2024 09:07-0400 Body weight 53.[address] Ricki Reyes MD Work Phone: [facility] 10-04-2024 09:07-0400 Diastolic blood pressure 70 mm[Hg] Dr. Ricki Reyes MD Work Phone: [facility] 10-04-2024 09:07-0400 Heart rate 58 /min Dr. Ricki Reyes MD Work Phone: 4(490)138-268656 [place] [address] 10-04-2024 09:07-0400 Respiratory rate 17 /min Dr. Ricki Reyes MD Work Phone: 8(768)413-204056 [place] [address] 10-04-2024 09:07-0400 SaO2% (BldA) [Mass fraction] 97 % Dr. Ricki Reyes MD Work Phone: [facility] 10-04-2024 09:07-0400 Systolic blood pressure 150 mm[Hg] Dr. Ricki Reyes MD Work Phone: [facility] 10-01-2024 11:32-0400 Diastolic blood pressure 82 mm[Hg] Precious Gerstenslager OT Work Phone: [facility] 10-01-2024 11:32-0400 Heart rate 79 /min Precious Gerstenslager OT Work Phone: [facility] 10-01-2024 11:32-0400 SaO2% (BldA) [Mass fraction] 99 % Precious Gerstenslager OT Work Phone: [facility] 10-01-2024 11:32-0400 Systolic blood pressure 138 mm[Hg] Precious Gerstenslager OT Work Phone: [facility] 10-01-2024 10:44-0400 Body temperature 97.5 [degF] Precious Gerstenslager OT Work Phone: [facility] 09-29-2024 14:13-0400 Body temperature 98.49 [degF] Scarlett Archie BOUFFANT CURTAIN MACHINE TENDER Work Phone: [facility] 09-29-2024 14:13-0400 Diastolic blood pressure 66 mm[Hg] Scarlett Archie BOUFFANT CURTAIN MACHINE TENDER Work Phone: [facility] 09-29-2024 14:13-0400 Heart rate 60 /min Scarlett Archie BOUFFANT CURTAIN MACHINE TENDER Work Phone: [facility] 09-29-2024 14:13-0400 Respiratory rate 18 /min Scarlett Archie BOUFFANT CURTAIN MACHINE TENDER Work Phone: [facility] 09-29-2024 14:13-0400 SaO2% (BldA) [Mass fraction] 97 % Scarlett Archie BOUFFANT CURTAIN MACHINE TENDER Work Phone: [facility] 09-29-2024 14:13-0400 Systolic blood pressure 126 mm[Hg] Scarlett Archie BOUFFANT CURTAIN MACHINE TENDER Work Phone: [facility] 09-29-2024 11:21-0400 Body temperature 98.91 [degF] Merry Gale CCC-FULL SERVICE SUPERVISOR Work Phone: [facility] 09-29-2024 11:21-0400 Diastolic blood pressure 66 mm[Hg] Merry Gale CCC-FULL SERVICE SUPERVISOR Work Phone: [facility] 09-29-2024 11:21-0400 Heart rate 50 /min Merry Gale CCC-FULL SERVICE SUPERVISOR Work Phone: [facility] 09-29-2024 11:21-0400 Respiratory rate 16 /min Merry Gale CCC-FULL SERVICE SUPERVISOR Work Phone: [facility] 09-29-2024 11:21-0400 SaO2% (BldA) [Mass fraction] 97 % Merry Gale CCC-FULL SERVICE SUPERVISOR Work Phone: [facility] 09-29-2024 11:21-0400 Systolic blood pressure 138 mm[Hg] Merry Gale CCC-FULL SERVICE SUPERVISOR Work Phone: [facility] 09-29-2024 10:26-0400 Body temperature 98.2 [degF] Jocelyn Most RN Work Phone: [facility] 09-29-2024 10:26-0400 Diastolic blood pressure 66 mm[Hg] Jocelyn RN Work Phone: [facility] 09-29-2024 10:26-0400 Heart rate 60 /min Jocelynabraham Hernandez RN Work Phone: [facility] 09-29-2024 10:26-0400 Respiratory rate 16 /min Jocelynabraham Hernandez RN Work Phone: [facility] 09-29-2024 10:26-0400 SaO2% (BldA) [Mass fraction] 98 % Jocelynabraham Hernandez RN Work Phone: [facility] 09-29-2024 10:26-0400 Systolic blood pressure 118 mm[Hg] Jocelynabraham Hernandez RN Work Phone: [facility] 09-27-2024 11:34-0400 Body temperature 98.91 [degF] Merry Gale CCC-FULL SERVICE SUPERVISOR Work Phone: [facility] 09-27-2024 11:34-0400 Diastolic blood pressure 80 mm[Hg] Merry Gale CCC-FULL SERVICE SUPERVISOR Work Phone: [facility] 09-27-2024 11:34-0400 Heart rate 73 /min Merry Gale CCC-FULL SERVICE SUPERVISOR Work Phone: [facility] 09-27-2024 11:34-0400 Respiratory rate 16 /min Merry Gale CCC-FULL SERVICE SUPERVISOR Work Phone: [facility] 09-27-2024 11:34-0400 SaO2% (BldA) [Mass fraction] 97 % Merry Gale CCC-FULL SERVICE SUPERVISOR Work Phone: [facility] 09-27-2024 11:34-0400 Systolic blood pressure 138 mm[Hg] Merry Gale CCC-FULL SERVICE SUPERVISOR Work Phone: [facility] 09-25-2024 14:48-0400 Body temperature 97.59 [degF] Meseret Rahman PT Work Phone: [facility] 09-25-2024 14:48-0400 Diastolic blood pressure 58 mm[Hg] Meseret Mensah-Lopes PT Work Phone: [facility] 09-25-2024 14:48-0400 Heart rate 57 /min Meseret Mensah-Lopes PT Work Phone: [facility] 09-25-2024 14:48-0400 Respiratory rate 16 /min Meseret Mensah-Lopes PT Work Phone: [facility] 09-25-2024 14:48-0400 SaO2% (BldA) [Mass fraction] 97 % Meseret Mensah-Lopes PT Work Phone: [facility] 09-25-2024 14:48-0400 Systolic blood pressure 126 mm[Hg] Meseret Mensah-Lopes PT Work Phone: [facility] 09-23-2024 14:16-0400 Body temperature 98.2 [degF] Nori Eicsheilaolt CCC-FULL SERVICE SUPERVISOR Work Phone: [facility] 09-23-2024 14:16-0400 Diastolic blood pressure 58 mm[Hg] Nori Eickholt CCC-FULL SERVICE SUPERVISOR Work Phone: [facility] 09-23-2024 14:16-0400 Heart rate 75 /min Nori Eickholt CCC-FULL SERVICE SUPERVISOR Work Phone: [facility] 09-23-2024 14:16-0400 SaO2% (BldA) [Mass fraction] 95 % Nori Eickholt CCC-FULL SERVICE SUPERVISOR Work Phone: [facility] 09-23-2024 14:16-0400 Systolic blood pressure 100 mm[Hg] Nori Eickholt CCC-FULL SERVICE SUPERVISOR Work Phone: [facility] 09-22-2024 11:42-0400 Body height 157.5 cm Jocelyn Hernandez RN Work Phone: [facility] 09-22-2024 11:42-0400 Body mass index (BMI) [Ratio] 20.85 kg/m2 Jocelynmitra Hernandez RN Work Phone: [facility] 09-22-2024 11:42-0400 Body temperature 97.9 [degF] Jocelynmitra Hernandez RN Work Phone: [facility] 09-22-2024 11:42-0400 Body weight 51.71 kg Jocelynmitra Hernandez RN Work Phone: [facility] 09-22-2024 11:42-0400 Diastolic blood pressure 80 mm[Hg] Jocelynmitra Hernandez RN Work Phone: [facility] 09-22-2024 11:42-0400 Heart rate 68 /min Jocelynmitra Hernandez RN Work Phone: [facility] 09-22-2024 11:42-0400 Respiratory rate 16 /min Jocelynmitra Hernandez RN Work Phone: [facility] 09-22-2024 11:42-0400 SaO2% (BldA) [Mass fraction] 97 % Jocelynmitra Hernandez RN Work Phone: [facility] 09-22-2024 11:42-0400 Systolic blood pressure 124 mm[Hg] Jocelynmitra Hernandez RN Work Phone: [facility] 09-19-2024 08:18-0400 Diastolic blood pressure 67 mm[Hg] Dr. Ricki Reyes MD Work Phone: [facility] 09-19-2024 08:18-0400 Heart rate 58 /min Dr. Ricki Reyes MD Work Phone: [facility] 09-19-2024 08:18-0400 Systolic blood pressure 134 mm[Hg] Dr. Ricki Reyes MD Work Phone: [facility] 09-19-2024 06:00-0400 Body temperature 97.8 [degF] Dr. Ricki Reyes MD Work Phone: [facility] 09-19-2024 06:00-0400 Respiratory rate 16 /min Dr. Ricki Reyes MD Work Phone: [facility] 09-19-2024 06:00-0400 SaO2% (BldA) [Mass fraction] 95 % Dr. Ricki Reyes MD Work Phone: 1(730)303-304531 [place] [address] 09-18-2024 20:19-0400 Body mass index (BMI) [Ratio] 20.7 kg/m2 Dr. Ricki Reyes MD Work Phone: 9(068)596-178531 [place] [address] 09-17-2024 05:49-0400 Body weight 51.[address] Ricki Reyes MD Work Phone: 7(288)185-990431 [place] [address] 08-31-2024 23:58-0400 Inhaled oxygen flow rate 2 L/min Dr. Ricki Reyes MD Work Phone: 5(438)550-623731 [place] [address] 08-23-2024 09:53-0400 Body height 157.[address] Ricki Reyes MD Work Phone: 0(166)969-478431 [place] [address] 08-22-2024 12:10-0400 Diastolic blood pressure 63 mm[Hg] Dr. Ricki Reyes MD Work Phone: 2(355)855-664531 [place] [address] 08-22-2024 12:10-0400 Heart rate 51 /min Dr. Ricki Reyes MD Work Phone: 2(160)368-631331 [place] [address] 08-22-2024 12:10-0400 Systolic blood pressure 125 mm[Hg] Dr. Ricki Reyes MD Work Phone: 0(754)665-941531 [place] [address] 08-22-2024 11:15-0400 Body temperature 97.9 [degF] Dr. Ricki Reyes MD Work Phone: 2(826)721-638531 [place] [address] 08-22-2024 11:15-0400 Respiratory rate 16 /min Dr. Ricki Reeys MD Work Phone: 5(667)806-687656 [place] [address] 08-22-2024 11:15-0400 SaO2% (BldA) [Mass fraction] 99 % Dr. Ricki Reyes MD Work Phone: 4(778)389-309056 [place] [address] 08-22-2024 09:00-0400 Body mass index (BMI) [Ratio] 20.9 kg/m2 Dr. Ricki Reyes MD Work Phone: 4(055)791-941656 [place] [address] 08-19-2024 13:25-0400 Body height 157.[address] Ricki Reyes MD Work Phone: 3(190)008-718356 [place] [address] 08-19-2024 13:25-0400 Body weight 51.[address] Ricki Reyes MD Work Phone: 2(160)144-633131 [place] [address] 08-18-2024 14:00-0400 Diastolic blood pressure 101 mm[Hg] Dr. Ricki Reyes MD Work Phone: 2(564)967-372556 [place] [address] 08-18-2024 14:00-0400 Heart rate 79 /min Dr. Ricki Reyes MD Work Phone: 4(007)667-738031 [place] [address] 08-18-2024 14:00-0400 Respiratory rate 21 /min Dr. Ricki Reyes MD Work Phone: 3(271)451-941331 [place] [address] 08-18-2024 14:00-0400 Systolic blood pressure 181 mm[Hg] Dr. Ricki Reyes MD Work Phone: 3(354)067-757431 [place] [address] 08-18-2024 12:36-0400 SaO2% (BldA) [Mass fraction] 96 % Dr. Ricki Reyes MD Work Phone: 2(746)435-280731 [place] [address] 08-18-2024 10:54-0400 Body height 152.[address] Ricki Reyes MD Work Phone: 1(519)904-651231 [place] [address] 08-18-2024 10:54-0400 Body mass index (BMI) [Ratio] 24 kg/m2 Dr. Ricki Reyes MD Work Phone: 2(495)747-757956 [place] [address] 08-18-2024 10:54-0400 Body weight 55.[address] Ricki Reyes MD Work Phone: 3(085)198-323456 [place] [address] 08-18-2024 09:54-0400 Body temperature 98 [degF] Dr. Ricki Reyes MD Work Phone: 0(239)626-856756 [place] [address] 08-16-2024 20:53-0400 Body temperature 98 [degF] Dr. Ricki Reyes MD Work Phone: 6(344)363-721156 [place] [address] 08-16-2024 20:53-0400 Diastolic blood pressure 72 mm[Hg] Dr. Ricki Reyes MD Work Phone: 0(439)640-690656 [place] [address] 08-16-2024 20:53-0400 Heart rate 91 /min Dr. Ricki Reyes MD Work Phone: [facility] 08-16-2024 20:53-0400 Respiratory rate 16 /min Dr. Ricki Reyes MD Work Phone: [facility] 08-16-2024 20:53-0400 SaO2% (BldA) [Mass fraction] 97 % Dr. Ricki Reyes MD Work Phone: [facility] 08-16-2024 20:53-0400 Systolic blood pressure 153 mm[Hg] Dr. Ricki Reyes MD Work Phone: [facility] 08-16-2024 15:44-0400 Body mass index (BMI) [Ratio] 23.1 kg/m2 Dr. Ricki Reyes MD Work Phone: [facility] 08-16-2024 15:44-0400 Body weight 53.[address] Ricki Reyes MD Work Phone: [facility] 04-26-2024 10:15-0500 Body mass index (BMI) [Ratio] 22.12 kg/m2 Tasha Suppan COOPERATIVE EDUCATION COORDINATOR.PROPERTY ADJUSTER Work Phone: [facility] 04-26-2024 10:15-0500 Body weight 53.98 kg Tasha Suppan COOPERATIVE EDUCATION COORDINATOR.PROPERTY ADJUSTER Work Phone: [facility] 04-26-2024 10:15-0500 Diastolic blood pressure 78 mm[Hg] Tasha Suppan COOPERATIVE EDUCATION COORDINATOR.PROPERTY ADJUSTER Work Phone: [facility] 04-26-2024 10:15-0500 Heart rate 62 /min Tasha Suppan COOPERATIVE EDUCATION COORDINATOR.PROPERTY ADJUSTER Work Phone: [facility] 04-26-2024 10:15-0500 SaO2% (BldA) [Mass fraction] 98 % Tasha Suppan COOPERATIVE EDUCATION COORDINATOR.PROPERTY ADJUSTER Work Phone: [facility] 04-26-2024 10:15-0500 Systolic blood pressure 142 mm[Hg] Tasha Suppan COOPERATIVE EDUCATION COORDINATOR.PROPERTY ADJUSTER Work Phone: [facility] 04-05-2024 15:25-0500 Body mass index (BMI) [Ratio] 22.12 kg/m2 Tasha Suppan COOPERATIVE EDUCATION COORDINATOR.PROPERTY ADJUSTER Work Phone: [facility] 04-05-2024 15:25-0500 Body temperature 97.2 [degF] Tasha Suppan COOPERATIVE EDUCATION COORDINATOR.PROPERTY ADJUSTER Work Phone: [facility] 04-05-2024 15:25-0500 Body weight 53.98 kg Tasha Suppan COOPERATIVE EDUCATION COORDINATOR.PROPERTY ADJUSTER Work Phone: [facility] 04-05-2024 15:25-0500 Diastolic blood pressure 84 mm[Hg] Tasha Suppan COOPERATIVE EDUCATION COORDINATOR.PROPERTY ADJUSTER Work Phone: [facility] 04-05-2024 15:25-0500 Heart rate 75 /min Tasha Suppan COOPERATIVE EDUCATION COORDINATOR.PROPERTY ADJUSTER Work Phone: [facility] 04-05-2024 15:25-0500 Respiratory rate 16 /min Tasha Suppan COOPERATIVE EDUCATION COORDINATOR.PROPERTY ADJUSTER Work Phone: [facility] 04-05-2024 15:25-0500 SaO2% (BldA) [Mass fraction] 96 % Tasha Suppan COOPERATIVE EDUCATION COORDINATOR.PROPERTY ADJUSTER Work Phone: [facility] 04-05-2024 15:25-0500 Systolic blood pressure 162 mm[Hg] Tasha Suppan COOPERATIVE EDUCATION COORDINATOR.PROPERTY ADJUSTER Work Phone: [facility] 12-05-2023 10:49-0400 Body mass index (BMI) [Ratio] 21.19 kg/m2 Tasha Suppan COOPERATIVE EDUCATION COORDINATOR.PROPERTY ADJUSTER Work Phone: [facility] 12-05-2023 10:49-0400 Body weight 51.71 kg Tasha Suppan COOPERATIVE EDUCATION COORDINATOR.PROPERTY ADJUSTER Work Phone: [facility] 12-05-2023 10:49-0400 Diastolic blood pressure 88 mm[Hg] Tasha Suppan COOPERATIVE EDUCATION COORDINATOR.PROPERTY ADJUSTER Work Phone: [facility] 12-05-2023 10:49-0400 Heart rate 81 /min Tasha Suppan COOPERATIVE EDUCATION COORDINATOR.PROPERTY ADJUSTER Work Phone: [facility] 12-05-2023 10:49-0400 SaO2% (BldA) [Mass fraction] 98 % Tasha Suppan COOPERATIVE EDUCATION COORDINATOR.PROPERTY ADJUSTER Work Phone: [facility] 12-05-2023 10:49-0400 Systolic blood pressure 150 mm[Hg] Tasha Suppan COOPERATIVE EDUCATION COORDINATOR.PROPERTY ADJUSTER Work Phone: [facility] 10-27-2023 09:35-0400 Body mass index (BMI) [Ratio] 21.56 kg/m2 Tasha Suppan COOPERATIVE EDUCATION COORDINATOR.PROPERTY ADJUSTER Work Phone: [facility] 10-27-2023 09:35-0400 Body weight 52.62 kg Tasha Suppan COOPERATIVE EDUCATION COORDINATOR.PROPERTY ADJUSTER Work Phone: [facility] 10-27-2023 09:35-0400 Diastolic blood pressure 76 mm[Hg] Tasha Suppan COOPERATIVE EDUCATION COORDINATOR.PROPERTY ADJUSTER Work Phone: [facility] 10-27-2023 09:35-0400 Heart rate 70 /min Tasha Suppan COOPERATIVE EDUCATION COORDINATOR.PROPERTY ADJUSTER Work Phone: [facility] 10-27-2023 09:35-0400 Respiratory rate 18 /min Tasha Suppan COOPERATIVE EDUCATION COORDINATOR.PROPERTY ADJUSTER Work Phone: [facility] 10-27-2023 09:35-0400 SaO2% (BldA) [Mass fraction] 97 % Tasha Suppan COOPERATIVE EDUCATION COORDINATOR.PROPERTY ADJUSTER Work Phone: [facility] 10-27-2023 09:35-0400 Systolic blood pressure 128 mm[Hg] Tasha Suppan COOPERATIVE EDUCATION COORDINATOR.PROPERTY ADJUSTER Work Phone: [facility] 09-26-2023 15:23-0400 Body mass index (BMI) [Ratio] 21.72 kg/m2 Sudheer Olguin APRN.PROPERTY ADJUSTER Work Phone: [facility] 09-26-2023 15:23-0400 Body temperature 97.5 [degF] Sudheer Sharif COOPERATIVE EDUCATION COORDINATOR.PROPERTY ADJUSTER Work Phone: [facility] 09-26-2023 15:23-0400 Body weight 53 kg Sudheer Sharif COOPERATIVE EDUCATION COORDINATOR.PROPERTY ADJUSTER Work Phone: [facility] 09-26-2023 15:23-0400 Diastolic blood pressure 90 mm[Hg] Sudheer Sharif COOPERATIVE EDUCATION COORDINATOR.PROPERTY ADJUSTER Work Phone: [facility] Comment on above: checked BP x 2 09-26-2023 15:23-0400 Heart rate 69 /min Sudheerarnoldo Olguin COOPERATIVE EDUCATION COORDINATOR.PROPERTY ADJUSTER Work Phone: [facility] 09-26-2023 15:23-0400 Respiratory rate 18 /min Sudheerarnoldo Olguin COOPERATIVE EDUCATION COORDINATOR.PROPERTY ADJUSTER Work Phone: [facility] 09-26-2023 15:23-0400 SaO2% (BldA) [Mass fraction] 97 % Sudheerarnoldo Olguin COOPERATIVE EDUCATION COORDINATOR.PROPERTY ADJUSTER Work Phone: [facility] 09-26-2023 15:23-0400 Systolic blood pressure 194 mm[Hg] Sudheer Sharif COOPERATIVE EDUCATION COORDINATOR.PROPERTY ADJUSTER Work Phone: [facility] Comment on above: checked BP x 2 08-15-2023 09:55-0400 Body mass index (BMI) [Ratio] 21.56 kg/m2 Tasha Suppan COOPERATIVE EDUCATION COORDINATOR.INSIDE SALES ADVISOR Work Phone: [facility] 08-15-2023 09:55-0400 Body weight 52.62 kg Tasha Suppan COOPERATIVE EDUCATION COORDINATOR.INSIDE SALES ADVISOR Work Phone: [facility] 08-15-2023 09:55-0400 Diastolic blood pressure 78 mm[Hg] Tasha Suppan COOPERATIVE EDUCATION COORDINATOR.INSIDE SALES ADVISOR Work Phone: [facility] 08-15-2023 09:55-0400 Heart rate 83 /min Tasha Suppan COOPERATIVE EDUCATION COORDINATOR.INSIDE SALES ADVISOR Work Phone: [facility] 08-15-2023 09:55-0400 Respiratory rate 16 /min Tasha Suppan COOPERATIVE EDUCATION COORDINATOR.INSIDE SALES ADVISOR Work Phone: [facility] 08-15-2023 09:55-0400 SaO2% (BldA) [Mass fraction] 98 % Tasha Deutsch COOPERATIVE EDUCATION COORDINATOR.INSIDE SALES ADVISOR Work Phone: [facility] 08-15-2023 09:55-0400 Systolic blood pressure 128 mm[Hg] Tasha Deutsch COOPERATIVE EDUCATION COORDINATOR.INSIDE SALES ADVISOR Work Phone: [facility] 07-16-2023 12:59-0400 Body temperature 97.7 [degF] Moses Ross MD Work Phone: [facility] 07-16-2023 12:59-0400 Body weight 53.98 kg Moses Ross MD Work Phone: [facility] 07-16-2023 12:59-0400 Diastolic blood pressure 76 mm[Hg] Moses Ross MD Work Phone: [facility] 07-16-2023 12:59-0400 Heart rate 60 /min Moses Ross MD Work Phone: [facility] 07-16-2023 12:59-0400 Systolic blood pressure 161 mm[Hg] Moses Ross MD Work Phone: [facility] 07-08-2023 09:30-0400 Body weight 53.07 kg Hetal Gallardo DO Work Phone: [facility] 07-08-2023 09:30-0400 Diastolic blood pressure 84 mm[Hg] Hetal Gallardo DO Work Phone: [facility] 07-08-2023 09:30-0400 Heart rate 72 /min Hetal Gallardo DO Work Phone: [facility] 07-08-2023 09:30-0400 SaO2% (BldA) [Mass fraction] 98 % Hetal Gallardo DO Work Phone: [facility] 07-08-2023 09:30-0400 Systolic blood pressure 180 mm[Hg] Hetal Gallardo DO Work Phone: [facility] 06-25-2023 10:00-0400 Diastolic blood pressure 87 mm[Hg] Julee Maderaal PT [facility] 06-25-2023 10:00-0400 Heart rate 61 /min Julee O'Kirk PT [facility] 06-25-2023 10:00-0400 SaO2% (BldA) [Mass fraction] 97 % Julee O'Kirk PT [facility] 06-25-2023 10:00-0400 Systolic blood pressure 177 mm[Hg] Julee O'Kirk PT [facility] 06-18-2023 10:00-0500 Diastolic blood pressure 80 mm[Hg] Julee O'Kirk PT [facility] 06-18-2023 10:00-0500 Heart rate 76 /min Julee O'Kirk PT [facility] 06-18-2023 10:00-0500 SaO2% (BldA) [Mass fraction] 99 % Julee O'Kirk PT [facility] 06-18-2023 10:00-0500 Systolic blood pressure 154 mm[Hg] Julee O'Kirk PT [facility] 06-04-2023 10:00-0500 Diastolic blood pressure 98 mm[Hg] Julee O'Kirk PT [facility] 06-04-2023 10:00-0500 Heart rate 80 /min Julee O'Kirk PT [facility] 06-04-2023 10:00-0500 SaO2% (BldA) [Mass fraction] 99 % Julee O'Kirk PT [facility] 06-04-2023 10:00-0500 Systolic blood pressure 197 mm[Hg] Julee O'Kirk PT [facility] 06-02-2023 16:22-0500 Diastolic blood pressure 80 mm[Hg] Tasha Suppan COOPERATIVE EDUCATION COORDINATOR.INSIDE SALES ADVISOR Work Phone: [facility] 06-02-2023 16:22-0500 Heart rate 78 /min Tasha Suppan COOPERATIVE EDUCATION COORDINATOR.INSIDE SALES ADVISOR Work Phone: [facility] 06-02-2023 16:22-0500 Respiratory rate 16 /min Tasha Suppan COOPERATIVE EDUCATION COORDINATOR.INSIDE SALES ADVISOR Work Phone: [facility] 06-02-2023 16:22-0500 SaO2% (BldA) [Mass fraction] 98 % Tasha Deutsch COOPERATIVE EDUCATION COORDINATOR.INSIDE SALES ADVISOR Work Phone: [facility] 06-02-2023 16:22-0500 Systolic blood pressure 152 mm[Hg] Tasha Deutsch COOPERATIVE EDUCATION COORDINATOR.INSIDE SALES ADVISOR Work Phone: [facility] 05-28-2023 10:00-0500 Diastolic blood pressure 97 mm[Hg] Julee O'Kirk PT [facility] 05-28-2023 10:00-0500 Heart rate 67 /min Julee O'Kirk PT [facility] 05-28-2023 10:00-0500 SaO2% (BldA) [Mass fraction] 99 % Julee O'Kirk PT [facility] 05-28-2023 10:00-0500 Systolic blood pressure 191 mm[Hg] Julee O'Kirk PT [facility] 05-26-2023 13:41-0500 Diastolic blood pressure 80 mm[Hg] Breann Haagen COOPERATIVE EDUCATION COORDINATOR.PROPERTY ADJUSTER Work Phone: [facility] 05-26-2023 13:41-0500 Heart rate 69 /min Breann Haagen COOPERATIVE EDUCATION COORDINATOR.PROPERTY ADJUSTER Work Phone: [facility] 05-26-2023 13:41-0500 Systolic blood pressure 171 mm[Hg] Breann Haagen COOPERATIVE EDUCATION COORDINATOR.PROPERTY ADJUSTER Work Phone: [facility] 05-26-2023 13:10-0500 Respiratory rate 16 /min Breann Haagen COOPERATIVE EDUCATION COORDINATOR.PROPERTY ADJUSTER Work Phone: [facility] 05-26-2023 13:10-0500 SaO2% (BldA) [Mass fraction] 96 % Breann Haagen COOPERATIVE EDUCATION COORDINATOR.PROPERTY ADJUSTER Work Phone: [facility] 12-30-2022 15:07-0400 Body weight 52.16 kg Sandra Horne MD Work Phone: [facility] 12-30-2022 15:07-0400 Diastolic blood pressure 94 mm[Hg] Sandra Horne MD Work Phone: [facility] 12-30-2022 15:07-0400 Heart rate 74 /min Sandra Horne MD Work Phone: [facility] 12-30-2022 15:07-0400 SaO2% (BldA) [Mass fraction] 98 % Sandra Horne MD Work Phone: [facility] 12-30-2022 15:07-0400 Systolic blood pressure 197 mm[Hg] Sandra Horne MD Work Phone: [facility] 10-24-2022 09:09-0400 Body weight 52.16 kg NA Harrington PA-C Work Phone: [facility] 10-24-2022 09:09-0400 Diastolic blood pressure 76 mm[Hg] NA Harrington PA-C Work Phone: [facility] 10-24-2022 09:09-0400 Heart rate 80 /min NA Harrington PA-C Work Phone: [facility] 10-24-2022 09:09-0400 Respiratory rate 16 /min NA Harrington PA-C Work Phone: [facility] 10-24-2022 09:09-0400 SaO2% (BldA) [Mass fraction] 98 % NA Harrington PA-C Work Phone: [facility] 10-24-2022 09:09-0400 Systolic blood pressure 142 mm[Hg] NA Harrington PA-C Work Phone: [facility] 10-10-2022 13:15-0400 Body weight 53.07 kg NA Harrington PA-C Work Phone: [facility] 10-10-2022 13:15-0400 Diastolic blood pressure 74 mm[Hg] NA Harrington PA-C Work Phone: [facility] 10-10-2022 13:15-0400 Heart rate 68 /min NA Harrington PA-C Work Phone: [facility] 10-10-2022 13:15-0400 Respiratory rate 16 /min NA Harrington PA-C Work Phone: [facility] 10-10-2022 13:15-0400 SaO2% (BldA) [Mass fraction] 97 % NA Harrington PA-C Work Phone: [facility] 10-10-2022 13:15-0400 Systolic blood pressure 146 mm[Hg] NA Harrington PA-C Work Phone: [facility] 04-11-2022 09:31-0500 Body weight 53.98 kg NA Harrington PA-C Work Phone: [facility] 04-11-2022 09:31-0500 Diastolic blood pressure 88 mm[Hg] NA Harrington PA-C Work Phone: [facility] 04-11-2022 09:31-0500 Heart rate 75 /min NA Harrington PA-C Work Phone: [facility] 04-11-2022 09:31-0500 Respiratory rate 16 /min NA Harrington PA-C Work Phone: [facility] 04-11-2022 09:31-0500 SaO2% (BldA) [Mass fraction] 95 % NA Harrington PA-C Work Phone: [facility] 04-11-2022 09:31-0500 Systolic blood pressure 132 mm[Hg] NA Harrington PA-C Work Phone: [facility] 04-07-2022 23:20-0500 Diastolic blood pressure 73 mm[Hg] [facility] Work Phone: 04-07-2022 23:20-0500 Heart rate 83 /min [facility] Work Phone: 04-07-2022 23:20-0500 Respiratory rate 15 /min [facility] Work Phone: 04-07-2022 23:20-0500 SaO2% (BldA) [Mass fraction] 98 % [facility] Work Phone: 04-07-2022 23:20-0500 Systolic blood pressure 135 mm[Hg] [facility] Work Phone: 04-07-2022 20:57-0500 Body height 152.[address] [facility] Work Phone: 04-07-2022 20:57-0500 Body mass index (BMI) [Ratio] 23 kg/m2 [facility] Work Phone: 04-07-2022 20:57-0500 Body temperature 97.8 [degF] [facility] Work Phone: 04-07-2022 20:57-0500 Body weight 53.[address] [facility] Work Phone: 10-29-2021 11:10-0400 Body temperature 98.1 [degF] NA Harrington PA-C Work Phone: [facility] 10-29-2021 11:10-0400 Body weight 53.07 kg NA Harrington PA-C Work Phone: [facility] 10-29-2021 11:10-0400 Diastolic blood pressure 62 mm[Hg] NA Harrington PA-C Work Phone: [facility] 10-29-2021 11:10-0400 Heart rate 69 /min NA Harrington PA-C Work Phone: [facility] 10-29-2021 11:10-0400 Respiratory rate 16 /min NA Harrington PA-C Work Phone: [facility] 10-29-2021 11:10-0400 SaO2% (BldA) [Mass fraction] 95 % NA Harrington PA-C Work Phone: [facility] 10-29-2021 11:10-0400 Systolic blood pressure 148 mm[Hg] NA Harrington PA-C Work Phone: [facility] NEGATED: Highlighted [id number] 11:13-0500 Body height [facility] Work Phone: NEGATED: Highlighted [id number] 11:13-0500 Body height 152 [facility] Work Phone: NEGATED: Highlighted [id number] 11:13050 Body mass index (BMI) [Ratio] 22.74 kg/m2 [facility] Work Phone: NEGATED: Highlighted [id number] 11:050 Body weight 52.62 kg [facility] Work Phone: NEGATED: Highlighted [id number] 11:050 Body weight 53 kg [facility] Work Phone: Encounters Encounter Date Encounter Type Care Provider Facility Start: 01-25-2025 ambulatory Tasha Suppan Facil ity:[facility] Start: 01-13-2025 ambulatory Tasha Suppan Facil ity:[facility] Start: 12-09-2024 ambulatory Tasha Suppan Facil ity:[facility] Start: 12-03-2024 End: 12-06-2024 ambulatory Tasha A Suppan COOPERATIVE EDUCATION COORDINATOR.PROPERTY ADJUSTER Work Phone: [facility] Comment on above: Blood Thinner Start: 11-30-2024 ambulatory Tasha Suppan Facil ity:[facility] Start: 11-23-2024 End: 11-23-2024 Home visit Charlee Rojo RN Work Phone: [facility] Comment on above: AGENCY DC NO [place] Start: 11-23-2024 End: 11-23-2024 Telephone encounter Tasha A Suppan COOPERATIVE EDUCATION COORDINATOR.PROPERTY ADJUSTER Work Phone: [facility] Start: 11-23-2024 ambulatory Tasha Suppan Facil ity:[facility] Start: 11-18-2024 ambulatory Tasha Suppan Facil ity:[facility] Start: 11-10-2024 End: 11-12-2024 Telephone encounter Tasha A Suppan COOPERATIVE EDUCATION COORDINATOR.PROPERTY ADJUSTER Work Phone: [facility] Comment on above: Fax Neurovascular Am bulator [facility]erals in [place] Start: 11-04-2024 End: 11-04-2024 ambulatory Tasha Deutsch COOPERATIVE EDUCATION COORDINATOR.PROPERTY ADJUSTER Work Phone: [facility] Comment on above: Allied Health Visit (Medication adherence outreach/) Start: 10-20-2024 End: 10-20-2024 Telephone encounter Mack Brito RN Work Phone: [facility] Comment on above: Home Care (Notificat ion of hospital admission.) Start: 10-20-2024 End: 10-20-2024 Home visit Mack Brito RN Work Phone: [facility] Comment on above: SN TRANSFER Start: 10-19-2024 End: 10-19-2024 Home visit Precious Carpenter OT Work Phone: [facility] Comment on above: OT ATTEMPTED VISIT Start: 10-18-2024 End: 11-16-2024 Evaluation and management of inpatient Cutr Diallo MD Work Phone: [id number] Start: 10-18-2024 End: 10-18-2024 Emergency department patient visit Dr. Ricki Reyes MD Work Phone: -Emergency Department Work Phone: Start: 10-15-2024 End: 10-18-2024 Refill Tasha Deutsch COOPERATIVE EDUCATION COORDINATOR.PROPERTY ADJUSTER Work Phone: [facility] Comment on above: Refill Request Start: 10-14-2024 End: 12-14-2024 Follow-up encounter Tasha Deutsch COOPERATIVE EDUCATION COORDINATOR.PROPERTY ADJUSTER Work Phone: [facility] Start: 10-14-2024 End: 10-14-2024 Home visit Nori Tafoya CCC-FULL SERVICE SUPERVISOR Work Phone: [facility] Comment on above: FULL SERVICE SUPERVISOR REASSESSMENT Start: 10-13-2024 End: 10-13-2024 Home visit Nori Tafoya CCC-FULL SERVICE SUPERVISOR Work Phone: [facility] Comment on above: FULL SERVICE SUPERVISOR ROUTINE Start: 10-13-2024 End: 10-13-2024 Home visit Yola Nj ALCAZAR/L Work Phone: [facility] Comment on above: ALCAZAR ROUTINE Start: 10-12-2024 End: 10-12-2024 Office outpatient visit 15 minutes Tasha A Suppan COOPERATIVE EDUCATION COORDINATOR.PROPERTY ADJUSTER Work Phone: [facility] Comment on above: Dysuria (Primary Dx) ; Confusion; Seasonal allergic rhinitis, unspecified trigger Start: 10-12-2024 End: 10-12-2024 ambulatory TASHA A SUPPAN Facility:[facility] Start: 10-12-2024 End: 10-12-[address] Cricket Leyva MD -[facility] Work Phone: Start: 10-12-2024 End: 10-12-[address] Ricki Reyes MD Work Phone: -[facility] Start: 10-12-2024 End: 10-12-2024 Home visit Nori Tafoya [facility]-FULL SERVICE SUPERVISOR Work Phone: [facility] Comment on above: FULL SERVICE SUPERVISOR ATTEMPTED VISIT Start: 10-11-2024 End: 10-12-2024 ambulatory Tasha A Suppan COOPERATIVE EDUCATION COORDINATOR.PROPERTY ADJUSTER Work Phone: [facility] Comment on above: UTI Start: 10-11-2024 End: 10-11-2024 Home visit Yola Nj ALCAZAR/L Work Phone: [facility] Comment on above: ALCAZAR ROUTINE PT DISC DC W VISIT Start: 10-08-2024 End: 10-08-2024 Home visit Yola Nj ALCAZAR/L Work Phone: [facility] Comment on above: ALCAZAR ROUTINE Start: 10-07-2024 End: 10-07-2024 Orders Only Tasha A Suppan COOPERATIVE EDUCATION COORDINATOR.PROPERTY ADJUSTER Work Phone: [facility] Comment on above: FULL SERVICE SUPERVISOR ROUTINE Start: 10-06-2024 End: 10-07-2024 Telephone encounter Moni Rodríguez CCC-FULL SERVICE SUPERVISOR Work Phone: [facility] Comment on above: Home Care ([place] g out patient's speech therapy orders) Start: 10-06-2024 End: 10-06-2024 Home visit Jocelyn Hernandez RN Work Phone: [facility] Comment on above: SN DISC DC W VISIT ALCAZAR ROUTINE Start: 10-05-2024 End: 10-05-2024 Follow-up encounter Tasha Deutsch COOPERATIVE EDUCATION COORDINATOR.PROPERTY ADJUSTER Work Phone: [facility] [place] Start: 10-04-2024 End: 10-04-2024 Home visit Scarlett Almanza BOUFFANT CURTAIN MACHINE TENDER Work Phone: [facility] Comment on above: BOUFFANT CURTAIN MACHINE TENDER ROUTINE FULL SERVICE SUPERVISOR ROUTINE Start: 10-04-2024 End: 10-04-2024 ambulatory TASHA A SUPPAN Facility:[facility] Start: 10-04-2024 End: 10-04-2024 Office outpatient visit 25 minutes Tasha Deutsch COOPERATIVE EDUCATION COORDINATOR.PROPERTY ADJUSTER Work Phone: [facility] Comment on above: Paroxysmal atrial fi brillation (HCC) (Primary Dx); 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 Ricki Reyes MD Work Phone: [facility] Work Phone: Start: 10-01-2024 End: 10-01-2024 Home visit Precious Carpenter OT Work Phone: [facility] Comment on above: OT EVAL Start: 09-29-2024 End: 09-29-2024 Home visit Scarlett Almanza BOUFFANT CURTAIN MACHINE TENDER Work Phone: [facility] Comment on above: BOUFFANT CURTAIN MACHINE TENDER ROUTINE SN ROUTINE FULL SERVICE SUPERVISOR ROUTINE Start: 09-27-2024 End: 09-28-2024 ambulatory Tasha Deutsch COOPERATIVE EDUCATION COORDINATOR.PROPERTY ADJUSTER Work Phone: [facility] Comment on above: Living Will Start: 09-27-2024 End: 09-27-2024 Telephone encounter Tasha Deutsch COOPERATIVE EDUCATION COORDINATOR.PROPERTY ADJUSTER Work Phone: [facility] Start: 09-27-2024 End: 09-27-2024 Home visit Moni Anne [facility]-FULL SERVICE SUPERVISOR Work Phone: [facility] Comment on above: FULL SERVICE SUPERVISOR ROUTINE Start: 09-25-2024 End: 09-25-2024 Home visit Meseret Rahman PT Work Phone: [facility] Comment on above: PT EVAL Start: 09-24-2024 End: 09-24-2024 Telephone encounter Tasha Deutsch COOPERATIVE EDUCATION COORDINATOR.PROPERTY ADJUSTER Work Phone: [facility] Start: 09-23-2024 End: 09-23-2024 Orders Only Tasha Deutsch COOPERATIVE EDUCATION COORDINATOR.PROPERTY ADJUSTER Work Phone: [facility] Comment on above: [facility] COORDINATIO N Home Care IDT CLINICAL TEAM CO LLABORATION FULL SERVICE SUPERVISOR EVAL Start: 09-22-2024 End: 09-22-2024 Home visit Jocelyn Hernandez RN Work Phone: [facility] Comment on above: SN SOC Start: 09-21-2024 End: 09-21-2024 Telephone encounter Nga Mccall RN Work Phone: [facility] Start: 09-18-2024 Non-patient / Non-visit Dr. Amandeep Dorado DO [facility] Work Phone: Start: 09-17-2024 End: 09-17-2024 Telephone encounter Asad KINGSLEY Work Phone: [facility] Comment on above: Home Care (Confirmat ion Call) Home Care (MD AISHWARYA ANGUIANO) Start: 09-16-2024 Non-patient / Non-visit Dr. Amandeep Dorado [facility] Work Phone: Start: 09-14-2024 End: 09-16-2024 ambulatory Tasha Deutsch COOPERATIVE EDUCATION COORDINATOR.PROPERTY ADJUSTER Work Phone: [facility] Comment on above: Behzad Obando er - FMLA Start: 09-14-2024 Non-patient / Non-visit Dr. Amandeep Dorado [facility] Work Phone: Start: 09-13-2024 Non-patient / Non-visit Dr. Amandeep Dorado [facility] Work Phone: Start: 09-09-2024 Non-patient / Non-visit Dr. Amandeep Dorado [facility] Work Phone: Start: 09-07-2024 Non-patient / Non-visit Dr. Amandeep Dorado [facility] Work Phone: Start: 09-05-2024 Non-patient / Non-visit Dr. Amandeep Dorado [facility] Work Phone: Start: 09-02-2024 Non-patient / Non-visit Dr. Amandeep Dorado [facility] Work Phone: Start: 08-31-2024 Non-patient / Non-visit Dr. Amandeep Dorado [facility] Work Phone: Start: 08-30-2024 End: 08-30-2024 Telephone encounter Tasha Deutsch COOPERATIVE EDUCATION COORDINATOR.PROPERTY ADJUSTER Work Phone: [facility] Start: 08-30-2024 Non-patient / Non-visit Dr. Amandeep Dorado [facility] Work Phone: Start: 08-26-2024 Non-patient / Non-visit Dr. Amandeep Dorado [facility] Work Phone: Start: 08-23-2024 End: 08-23-2024 Telephone encounter Tasha Deutsch COOPERATIVE EDUCATION COORDINATOR.PROPERTY ADJUSTER Work Phone: [facility] Start: 08-23-2024 Non-patient / Non-visit Dr. Amandeep Dorado [facility] Work Phone: Start: 08-22-2024 ambulatory Tasha Deutsch Facil ity:[facility] Start: 08-22-2024 End: 09-19-2024 Evaluation and management of inpatient [facility] Work Phone: Start: 08-22-2024 Non-patient / Non-visit Dr. Mara Mar [facility] Work Phone: Start: 08-21-2024 Non-patient / Non-visit Dr. Mara Mar [facility] Work Phone: Start: 08-20-2024 Non-patient / Non-visit Dr. Mara Mar [facility] Work Phone: Start: 08-19-2024 Non-patient / Non-visit Dr. Mara Mar [facility] Work Phone: Start: 08-19-2024 ambulatory Cricket Leyva Facility:[facility] Start: 08-19-2024 Non-patient / Non-visit Dr. Cricket flanagan MD -[facility] Start: 08-18-2024 ambulatory Mara Mar Facility:[facility] Start: 08-18-2024 End: 08-22-2024 Evaluation and management of inpatient Dr. Mara Mar DO [facility] Work Phone: Start: 08-18-[address] Ricki Reyes MD Work Phone: [facility] Work Phone: Start: 08-16-2024 End: 08-16-2024 Emergency department patient visit Dr. Ricki Reyes MD Work Phone: -Emergency Department Work Phone: Start: 07-05-2024 End: 07-05-2024 Refill Tasha A Suppan COOPERATIVE EDUCATION COORDINATOR.PROPERTY ADJUSTER Work Phone: [facility] Comment on above: Refill Request Start: 04-26-2024 End: 04-26-2024 Telephone encounter Tasha A Suppan COOPERATIVE EDUCATION COORDINATOR.PROPERTY ADJUSTER Work Phone: [facility] [place] Start: 04-26-2024 End: 04-26-2024 ambulatory TASHA A SUPPAN Facility:[facility] Start: 04-26-2024 End: 04-26-2024 Office outpatient visit 25 minutes Tasha A Suppan COOPERATIVE EDUCATION COORDINATOR.PROPERTY ADJUSTER Work Phone: [facility] Comment on above: Collagenous colitis [...] End: 04-08-2024 Telephone encounter Tasha A Suppan COOPERATIVE EDUCATION COORDINATOR.PROPERTY ADJUSTER Work Phone: [facility] Comment on above: Results Start: 04-06-2024 End: 04-06-2024 Telephone encounter Tasha A Suppan COOPERATIVE EDUCATION COORDINATOR.PROPERTY ADJUSTER Work Phone: [facility] Comment on above: Results Start: 04-05-2024 End: 04-05-2024 Office outpatient visit 15 minutes Tasha A Suppan COOPERATIVE EDUCATION COORDINATOR.PROPERTY ADJUSTER Work Phone: [facility] Comment on above: Acute non-recurrent maxillary sinusitis (Primary Dx); Urinary urgency Start: 04-05-2024 End: 04-05-2024 ambulatory TASHA A SUPPAN Facility:[facility] Start: 12-05-2023 End: 12-05-2023 Office outpatient visit 15 minutes Tasha A Suppan COOPERATIVE EDUCATION COORDINATOR.PROPERTY ADJUSTER Work Phone: [facility] Comment on above: PAD (peripheral piyush ry disease) (HCC) (Primary Dx) Start: 10-27-2023 End: 10-27-2023 Office outpatient visit 25 minutes Tasha Deutsch APRN.PROPERTY ADJUSTER Work Phone: [facility] [place] Comment on above: Paroxysmal atrial fi brillation [...] Office outpatient visit 15 minutes Tasha Deutsch APRN.INSIDE SALES ADVISOR Work Phone: [facility] Comment on above: Headache, unspecifie d [...] ambulatory M Garcia houser PA-C Work Phone: [facility] [place] Comment on above: urinary symptoms Start: 07-16-2023 End: 07-16-2023 Patient encounter procedure Moses Ross MD Work Phone: [facility] Comment on above: Acute right-sided [...] 06-23-2023 Subsequent hospital visit by physician Ameya [facility] Work Phone: Radiology Comment on above: Pain [R52] Start: 06-18-2023 End: 06-18-2023 ambulatory Julee O'Kirk PT [facility] Comment on above: Acute pain of right shoulder (Primary Dx); Severe pain of left shoulder; Cervicalgia Start: 06-09-2023 Telephone encounter Tasha Deutsch APRN.INSIDE SALES ADVISOR Work Phone: [facility] Comment on above: Results Start: 06-04-2023 End: 06-04-2023 ambulatory Julee O'Kirk PT [facility] Comment on above: Acute pain of right shoulder (Primary Dx); Severe pain of left shoulder; Cervicalgia Start: 06-02-2023 End: 06-02-2023 Office outpatient visit 25 minutes Tasha Deutsch APRN.INSIDE SALES ADVISOR Work Phone: [facility] Comment on above: DDD (degenerative di sc disease), cervical (Primary Dx); Primary hypertension; Right carotid bruit; Vitamin D deficiency; Vitamin B12 deficiency; Dizziness Start: 05-28-2023 Telephone encounter Breann hansen APRN.CNP Work Phone: [facility] Comment on above: Results Start: 05-28-2023 End: 05-28-2023 ambulatory Julee Becker PT [facility] Comment on above: Acute pain of right shoulder (Primary Dx); Severe pain of left shoulder; Cervicalgia Start: 05-27-2023 End: 05-27-2023 Subsequent hospital visit by physician Ct [facility] (I-Stat) Work Phone: Cat Scan Comment on above: Transient cerebral i schemia, unspecified type [G45.9] Start: 05-26-2023 ambulatory Jose G Monroy on PA-C Work Phone: [facility] Comment on above: Dizziness Start: 05-26-2023 Telephone encounter Breann hansen APRN.CNP Work Phone: [facility] Start: 05-26-2023 End: 05-26-2023 Office outpatient visit 25 minutes Breann Schmitz APRN.CNP Work Phone: [facility] Comment on above: Primary hypertension (Primary Dx); Transient cerebral ischemia, unspecified type; Dizziness; Right carotid bruit Start: 05-21-2023 End: 05-21-2023 ambulatory Julee Becker PT [facility] Comment on above: Acute pain of right shoulder (Primary Dx); Severe pain of left shoulder; Cervicalgia Start: 03-31-2023 End: 03-31-2023 Subsequent hospital visit by physician Xr [facility] [facility] Work Phone: Radiology Comment on above: Acute pain of right shoulder [M25.511] Start: 12-30-2022 End: 12-30-2022 Patient encounter procedure Sandra Horne MD Work Phone: Cardiology Comment on above: Paroxysmal atrial fi brillation (HCC) (Primary Dx); Primary hypertension Start: 10-24-2022 End: 10-24-2022 Patient encounter procedure Jose G Harrington PA-C Work Phone: [facility] Comment on above: Impacted cerumen of right ear (Primary Dx); Neck pain on right side Start: 10-10-2022 End: 10-10-2022 Patient encounter procedure Jose G Harrington PA-C Work Phone: [facility] Comment on above: Paroxysmal atrial fi brillation (HCC) (Primary Dx); Rotator cuff tear arthropathy, left; Hiatal hernia; Collagenous colitis; Irritable bowel syndrome with diarrhea; Chronic renal insufficiency, stage 3 (moderate) (HCC); Vitamin D deficiency; DDD (degenerative disc disease), cervical; Primary osteoarthritis of right hip; Asymptomatic menopause; Asymptomatic postmenopausal status Start: 04-11-2022 End: 04-11-2022 Patient encounter procedure Jose G Harrington PA-C Work Phone: [facility] Comment on above: Paroxysmal atrial fi brillation (HCC) (Primary Dx); Chronic renal insufficiency, stage 3 (moderate) (HCC); Collagenous colitis; Fall from standing, initial encounter; Vitamin D deficiency; Iron deficiency anemia, unspecified iron deficiency anemia type Start: 04-07-2022 End: 04-07-2022 Emergency department patient visit [facility]gency Department Start: 10-29-2021 End: 10-29-2021 Patient encounter procedure Jose G Harrington PA-C Work Phone: [facility] Comment on above: Irritant dermatitis (Primary Dx); Traumatic tear of left rotator cuff, sequela; Collagenous colitis; Chronic renal insufficiency, stage 3 (moderate) (HCC); Vitamin D deficiency Start: 10-24-2021 ambulatory Jazmyne Beltran [facility] Care Management Comment on above: Community Monitoring Outreach ([employer] Enrollment - Declined/Not interested in home monitoring) Start: 08-01-2021 Refill Jose G houser PA-C Work Phone: [facility] Comment on above: Refill Request Lab Orders Start: 06-13-2021 End: 06-13-2021 Subsequent hospital visit by physician Xr [facility] Work Phone: Radiology Comment on above: ov Start: 11-12-2016 End: 11-12-2016 Ambulatory [facility] Start: 10-17-2016 End: 10-17-2016 Ambulatory TAMIA LANDIN) [facility] Procedures Date Procedure Procedure Detail Performing Clinician Start: 11-15-2024 CBC AND ELECTRONIC DIFF Jesus S Abukwiek COOPERATIVE EDUCATION COORDINATOR-PROPERTY ADJUSTER Work Phone: Start: 11-15-2024 Complete blood count with white cell differential, automated Jesus S Abukwiek COOPERATIVE EDUCATION COORDINATOR-PROPERTY ADJUSTER Work Phone: Start: 11-15-2024 Creatinine blood Jesus S Abukwiek COOPERATIVE EDUCATION COORDINATOR-PROPERTY ADJUSTER Work Phone: Start: 11-15-2024 Hepatic function panel Reta Galarza COOPERATIVE EDUCATION COORDINATOR-PROPERTY ADJUSTER Work Phone: Start: 11-14-2024 CARDIAC RHYTHM (SCANNED) Other Other OT Start: 11-12-2024 INTERVENTIONAL UPPER ENDOSCOPY Leeroy Pantoja MD Work Phone: Start: 11-12-2024 Radiologic exam ches t single view Stephanie Molinaa DO Work Phone: Start: 11-12-2024 Gases blood ph direc t camilo xcpt pulse oximitry Stephanie Araiza Shammaa DO Work Phone: Start: 11-12-2024 CBC AND ELECTRONIC DIFF Jesus S Abukwiek COOPERATIVE EDUCATION COORDINATOR-PROPERTY ADJUSTER Work Phone: Start: 11-12-2024 Complete blood count with white cell differential, automated Jesus S Abukwiek COOPERATIVE EDUCATION COORDINATOR-PROPERTY ADJUSTER Work Phone: Start: 11-12-2024 Creatinine blood Jesus S Abukwiek COOPERATIVE EDUCATION COORDINATOR-PROPERTY ADJUSTER Work Phone: Start: 11-11-2024 Radiologic exam ches t single view Ailyn Tripathee COOPERATIVE EDUCATION COORDINATOR-PROPERTY ADJUSTER Work Phone: Start: 11-11-2024 Ct head/brain w/o contrast material Ailyn Tripathee COOPERATIVE EDUCATION COORDINATOR-PROPERTY ADJUSTER Work Phone: Start: 11-10-2024 Radiologic exam ches t single view Reta Galarza COOPERATIVE EDUCATION COORDINATOR-PROPERTY ADJUSTER Work Phone: Start: 11-09-2024 FLEXIBLE ENDOSCOPIC EVALUATION OF SWALLOWING [facility] COOPERATIVE EDUCATION COORDINATOR-PROPERTY ADJUSTER Work Phone: Start: 11-09-2024 CBC AND ELECTRONIC DIFF Jesus S Abukwiek COOPERATIVE EDUCATION COORDINATOR-PROPERTY ADJUSTER Work Phone: Start: 11-09-2024 Complete blood count with white cell differential, automated Jesus S Abukwiek COOPERATIVE EDUCATION COORDINATOR-PROPERTY ADJUSTER Work Phone: Start: 11-09-2024 Electrolyte panel Jesus S Abukwiek COOPERATIVE EDUCATION COORDINATOR-PROPERTY ADJUSTER Work Phone: Start: 11-06-2024 CBC AND ELECTRONIC DIFF Jesus S Abukwiek COOPERATIVE EDUCATION COORDINATOR-PROPERTY ADJUSTER Work Phone: Start: 11-06-2024 Complete blood count with white cell differential, automated Jesus S Abukwiek COOPERATIVE EDUCATION COORDINATOR-PROPERTY ADJUSTER Work Phone: Start: 11-06-2024 Creatinine blood Jesus S Abukwiek COOPERATIVE EDUCATION COORDINATOR-PROPERTY ADJUSTER Work Phone: Start: 11-04-2024 Creatinine blood Lobito Mix MD Work Phone: Start: 11-03-2024 CBC AND ELECTRONIC DIFF Jesus S Abukwiek COOPERATIVE EDUCATION COORDINATOR-PROPERTY ADJUSTER Work Phone: Start: 11-03-2024 Complete blood count with white cell differential, automated Jesus S Abukwiek COOPERATIVE EDUCATION COORDINATOR-PROPERTY ADJUSTER Work Phone: Start: 11-03-2024 Electrolyte panel Jesus S Abukwiek COOPERATIVE EDUCATION COORDINATOR-PROPERTY ADJUSTER Work Phone: Start: 11-02-2024 Culture bct isol&prs mptv id isolate ea urine David Sutton COOPERATIVE EDUCATION COORDINATOR-PROPERTY ADJUSTER Work Phone: Start: 11-02-2024 EXTRA MICRO David Sutton COOPERATIVE EDUCATION COORDINATOR-PROPERTY ADJUSTER Work Phone: Start: 11-02-2024 URINALYSIS REFLEX TO CULTURE David Sutton COOPERATIVE EDUCATION COORDINATOR-PROPERTY ADJUSTER Work Phone: Start: 11-02-2024 Radiologic exam abdo men 1 view David Sutotn COOPERATIVE EDUCATION COORDINATOR-PROPERTY ADJUSTER Work Phone: Start: 11-01-2024 Radiologic exam abdo men 1 view Ousmane Cantu DO Work Phone: Start: 11-01-2024 Glucose measurement, blood Ousmane Cantu DO Work Phone: Start: 11-01-2024 Radiologic exam abdo men 1 view Reta Galarza COOPERATIVE EDUCATION COORDINATOR-PROPERTY ADJUSTER Work Phone: Start: 11-01-2024 Glucose measurement, blood Jeronimo Trujillo MD Work Phone: Start: 10-31-2024 Glucose measurement, blood Jeronimo Trujillo MD Work Phone: Start: 10-31-2024 Glucose measurement, blood Jeronimo Trujillo MD Work Phone: Start: 10-31-2024 Glucose measurement, blood Jeronimo Trujillo MD Work Phone: Start: 10-31-2024 Glucose measurement, blood Jeronimo Trujillo MD Work Phone: Start: 10-31-2024 CBC AND ELECTRONIC DIFF Jesus S Abukwiek COOPERATIVE EDUCATION COORDINATOR-PROPERTY ADJUSTER Work Phone: Start: 10-31-2024 Complete blood count with white cell differential, automated Jesus S Abukwiek COOPERATIVE EDUCATION COORDINATOR-PROPERTY ADJUSTER Work Phone: Start: 10-31-2024 Creatinine blood Jesus S Abukwiek COOPERATIVE EDUCATION COORDINATOR-PROPERTY ADJUSTER Work Phone: Start: 10-31-2024 Glucose measurement, blood [...] abdo men 1 view Jesus S Abverónica COOPERATIVE EDUCATION COORDINATOR-PROPERTY ADJUSTER Work Phone: Start: 10-29-2024 Glucose measurement, blood Jeronimo Trujillo MD Work Phone: Start: 10-28-2024 Glucose measurement, blood Jeronimo Trujillo MD Work Phone: Start: 10-28-2024 Glucose measurement, blood Jeronimo Trujillo MD Work Phone: Start: 10-28-2024 Glucose measurement, blood Jeronimo Trujillo MD Work Phone: Start: 10-28-2024 CBC AND ELECTRONIC DIFF Jesus S Abwialicia COOPERATIVE EDUCATION COORDINATOR-PROPERTY ADJUSTER Work Phone: Start: 10-28-2024 Complete blood count with white cell differential, automated Jesus S Abverónica COOPERATIVE EDUCATION COORDINATOR-PROPERTY ADJUSTER Work Phone: Start: 10-28-2024 Creatinine blood Jesus S Abverónica COOPERATIVE EDUCATION COORDINATOR-PROPERTY ADJUSTER Work Phone: Start: 10-27-2024 Glucose measurement, blood Jeronimo Trujillo MD Work Phone: Start: 10-27-2024 Glucose measurement, blood Jeronimo Trujillo MD Work Phone: Start: 10-27-2024 Radiologic exam abdo men 1 view David Sutton COOPERATIVE EDUCATION COORDINATOR-PROPERTY ADJUSTER Work Phone: Start: 10-27-2024 Glucose measurement, blood [...] low function contrast study Jesus Lugo Lizzymartha COOPERATIVE EDUCATION COORDINATOR-PROPERTY ADJUSTER Work Phone: Start: 10-26-2024 SPEECH MODIFIED RALPH UM SWALLOW Ailyn Tripathee COOPERATIVE EDUCATION COORDINATOR-PROPERTY ADJUSTER Work Phone: Start: 10-26-2024 Glucose measurement, blood Jeronimo Trujillo MD Work Phone: Start: 10-26-2024 Culture bct isol&prs mptv id isolate ea urine Ailyn Tripathee COOPERATIVE EDUCATION COORDINATOR-PROPERTY ADJUSTER Work Phone: Start: 10-26-2024 EXTRA MICRO Ailyn Tr ipathee COOPERATIVE EDUCATION COORDINATOR-PROPERTY ADJUSTER Work Phone: Start: 10-26-2024 URINALYSIS REFLEX TO CULTURE Ailyn Tripathee COOPERATIVE EDUCATION COORDINATOR-PROPERTY ADJUSTER Work Phone: Start: 10-26-2024 Glucose measurement, blood Jeronimo Trujillo MD Work Phone: Start: 10-25-2024 Glucose measurement, blood Jeronimo Trujillo MD Work Phone: Start: 10-25-2024 Glucose measurement, blood Mayra Mar MD Work Phone: Start: 10-25-2024 Glucose measurement, blood Mayra Mar MD Work Phone: Start: 10-25-2024 CBC AND ELECTRONIC DIFF Jesus Yang COOPERATIVE EDUCATION COORDINATOR-[facility] Work Phone: Start: 10-25-2024 Complete blood count with white cell differential, automated Jesus Yang COOPERATIVE EDUCATION COORDINATOR-[facility] Work Phone: Start: 10-25-2024 Creatinine blood Jesus Yang COOPERATIVE EDUCATION COORDINATOR-[facility] Work Phone: Start: 10-24-2024 Glucose measurement, blood Mayra Mar MD Work Phone: Start: 10-24-2024 Culture bct isol&prs mptv id isolate ea urine Alex K Corless DO Work Phone: Start: 10-24-2024 EXTRA MICRO Alex K Co rless DO Work Phone: Start: 10-24-2024 URINALYSIS REFLEX TO CULTURE Alex K Corless DO Work Phone: Start: 10-24-2024 Radiologic exam abdo men 1 view David Sutton [facility] Work Phone: Start: 10-24-2024 Glucose measurement, [...] FLEXIBLE ENDOSCOPIC EVALUATION OF SWALLOWING Jesus Yang COOPERATIVE EDUCATION COORDINATOR-PROPERTY ADJUSTER Work Phone: Start: 10-22-2024 Glucose measurement, blood Mayra Mar MD Work Phone: Start: 10-22-2024 Assay of magnesium Nase rin M Laure COOPERATIVE EDUCATION COORDINATOR-PROPERTY ADJUSTER Work Phone: Start: 10-22-2024 CBC AND ELECTRONIC DIFF Naserin M Laure COOPERATIVE EDUCATION COORDINATOR-PROPERTY ADJUSTER Work Phone: Start: 10-22-2024 Complete blood count with white cell differential, automated Naserin M Laure COOPERATIVE EDUCATION COORDINATOR-PROPERTY ADJUSTER Work Phone: Start: 10-21-2024 Glucose measurement, blood Mayra Mar MD Work Phone: Start: 10-21-2024 Glucose measurement, blood Mayra Mar MD Work Phone: Start: 10-21-2024 Glucose measurement, blood Mayra Mar MD Work Phone: Start: 10-21-2024 Assay of magnesium Nase rin M Laure COOPERATIVE EDUCATION COORDINATOR-PROPERTY ADJUSTER Work Phone: Start: 10-21-2024 CBC AND ELECTRONIC DIFF Naserin M Laure COOPERATIVE EDUCATION COORDINATOR-PROPERTY ADJUSTER Work Phone: Start: 10-21-2024 Complete blood count with white cell differential, automated Naserin M Laure COOPERATIVE EDUCATION COORDINATOR-PROPERTY ADJUSTER Work Phone: Start: 10-20-2024 Glucose measurement, blood Mayra Mar MD Work Phone: Start: 10-20-2024 Glucose measurement, blood Mayra Mar MD Work Phone: Start: 10-20-2024 Glucose measurement, blood Mayra Mar MD Work Phone: Start: 10-20-2024 Assay of magnesium Jacqui Kelsey [facility] Work Phone: Start: 10-20-2024 CBC AND ELECTRONIC DIFF Sebastián Kelsey [facility] Work Phone: Start: 10-20-2024 Complete blood count with white cell differential, automated Sebastián Kelsey [facility] Work Phone: Start: 10-20-2024 Glucose measurement, blood Mayra Mar MD Work Phone: Start: 10-19-2024 Ct head/brain w/o contrast material Krys Mix MD Work Phone: Start: 10-19-2024 Glucose measurement, blood Mayra Mar MD Work Phone: Start: 10-19-2024 FLEXIBLE ENDOSCOPIC EVALUATION OF SWALLOWING Ailyn Rogeathee [facility] Work Phone: Start: 10-19-2024 Glucose measurement, blood Mayra Mar MD Work Phone: Start: 10-19-2024 Blood count platelet automated Bob Ramos MD Work Phone: Start: 10-19-2024 Echo tthrc r-t 2d w/wom-mode compl spec&colr d Sebastián Kelsey [facility] Work Phone: Start: 10-19-2024 Mri brain brain stem w/o w/contrast material David Sutton [facility] Work Phone: Start: 10-19-2024 Glucose measurement, blood Nenad Renard Sher MD Work Phone: Start: 10-19-2024 Bilirubin direct Fawad Addison PA-C Work Phone: Start: 10-19-2024 CBC AND ELECTRONIC DIFF Sebastián Kelsey COOPERATIVE EDUCATION COORDINATOR-PROPERTY ADJUSTER Work Phone: Start: 10-19-2024 Complete blood count with white cell differential, automated Sebastián Kelsey COOPERATIVE EDUCATION COORDINATOR-PROPERTY ADJUSTER Work Phone: Start: 10-19-2024 Iadna s aureus ampli fied probe tq Sebastián Kelsey COOPERATIVE EDUCATION COORDINATOR-PROPERTY ADJUSTER Work Phone: Start: 10-19-2024 MANUAL DIFF Sebastián Kelsey COOPERATIVE EDUCATION COORDINATOR-PROPERTY ADJUSTER Work Phone: Start: 10-18-2024 Radiologic exam abdo men 1 view Sebastián Kelsey COOPERATIVE EDUCATION COORDINATOR-PROPERTY ADJUSTER Work Phone: Start: 10-18-2024 Artl cathj/cannulj mntr/transfusion spx prq Delicia Danielson PA-C Work Phone: Start: 10-18-2024 Glucose measurement, blood Mhd Renard Sher MD Work Phone: Start: 10-18-2024 Ct head/brain w/o contrast material David Sutton COOPERATIVE EDUCATION COORDINATOR-PROPERTY ADJUSTER Work Phone: Start: 10-18-2024 ABORH TYPE RECONFIRMATION Britney Lam DO Work Phone: Start: 10-18-2024 Antibody screen MIHAI HAQUE Comment on above: Performed By: #### X M #### [facility] (DEFAULT) [address] [place] [address] Start: 10-18-2024 End: 10-18-2024 Blood typing serologic abo David Sutton COOPERATIVE EDUCATION COORDINATOR-PROPERTY ADJUSTER Work Phone: Start: 10-18-2024 EXTRA MICRO David Sutton COOPERATIVE EDUCATION COORDINATOR-PROPERTY ADJUSTER Work Phone: Start: 10-18-2024 URINALYSIS REFLEX TO CULTURE David Sutton COOPERATIVE EDUCATION COORDINATOR-PROPERTY ADJUSTER Work Phone: Start: 10-18-2024 Urnls dip stick/tabl et reagent auto microscopy David Ontiverosnett COOPERATIVE EDUCATION COORDINATOR-PROPERTY ADJUSTER Work Phone: Start: 10-18-2024 Ecg routine ecg w/le ast 12 lds trcg only w/o i&r David Vazquez Herman COOPERATIVE EDUCATION COORDINATOR-PROPERTY ADJUSTER Work Phone: Start: 10-18-2024 Bilirubin direct Gary [...] et rgnt auto w/o microscopy Tasha Deutsch COOPERATIVE EDUCATION COORDINATOR.PROPERTY ADJUSTER Work Phone: Start: 09-17-[address] [...] 04-26-2024 Adult depression screening assessment Tasha Deutsch APRN.PROPERTY ADJUSTER Work Phone: Start: 08-18-2023 Arthrocentesis aspir &/inj [...] Ct head/brain w/o contrast material Breann Hajade COOPERATIVE EDUCATION COORDINATOR.PROPERTY ADJUSTER Work Phone: Start: 03-31-2023 Radex shoulder compl [...] on femur minimum 2 views Breann Schmitz APRN.PROPERTY ADJUSTER Work Phone: NEGATED: Highlighted rowStart: 06-22-2021 End: 06-22-2021 Documentation of current medications Belmike Cunningham Plan of Treatment Date Care Activity Detail Author Start: 11-16-2027 Diabetes Screening Diabetes Screening [facility] Start: 11-13-2027 Diabetes Screening Diabetes Screening [facility] Start: 11-04-2027 Diabetes Screening Diabetes Screening [facility] Start: 10-21-2027 Diabetes Screening Diabetes Screening [facility] Start: 10-20-2027 Diabetes Screening Diabetes Screening [facility] Start: 10-05-2027 Diabetes Screening Diabetes Screening [facility] Start: 04-26-2027 Diabetes Screening Diabetes Screening [facility] Start: 08-14-2026 Diabetes Screening Diabetes Screening [facility] Start: 06-04-2026 Diabetes Screening Diabetes Screening [facility] Start: 10-11-2025 DIABETES SCREEN DIABETES SCREEN [facility] Start: 10-11-2025 Diabetes Screening Diabetes Screening [facility] Start: 04-26-2025 Anxiety Screening Anxiety Screening [facility] Start: 04-26-2025 Covid-19 Vaccine () Covid-19 Vaccine () [facility] Comment on above: Postponed from 12/14/2023 (Declined at t his time) Start: 04-26-2025 Depression Screening Depression Screening [facility] Start: 04-26-2025 RSV Vaccine (1 - 1-dose 75+ series) RSV Vaccine (1 - 1-dose 75+ series) [facility] Comment on above: Postponed from 2013 (Declined at t his time) Start: 04-26-2025 Shingrix Vaccine (1 of 2) Shingrix Vaccine (1 of 2) [facility] Comment on above: Postponed from 01/02/1988 (Declined at t his time) Start: 04-26-2025 Urine microalbumin profile DTaP,Tdap,Td Vaccine (1 - Tdap) [facility] Comment on above: Postponed from 1957 (Insurance Cov erage) Start: 02-28-2025 End: 02-28-2025 Patient encounter procedure 02/28/2025 8:20 AM EST Office Visit [facility] Card[facility] [place] [address] [place], [place] [id number] David Wilson MD [address] [phone] Ref; SHERRI for PAF- hlk [facility] [place] Comment on above: Ref; [facility] for PAF- hlk Start: 02-03-2025 End: 02-03-2025 Patient encounter procedure 02/03/2025 4:20 PM EDT Office Visit [facility] [place] [address] [place], [place] [id number] Tasha Deutsch APRN.PROPERTY ADJUSTER [address] [place], [place] [id number] 6 month follow up [facility] Comment on above: 6 month follow up Start: 12-13-2024 Influenza vaccination [facility] Start: 10-25-2024 End: 10-25-2024 Patient encounter procedure 10/25/2024 1:00 PM EDT Office Visit [facility] [address] [place], [place] [id number] Tasha Deutsch APRN.PROPERTY ADJUSTER [address] [place] [address] 6 month follow up [facility] [place] Comment on above: 6 month follow up Start: 10-18-2024 [facility] Start: 10-18-2024 Oxygen therapy [facility] Start: 10-18-2024 [facility] Start: 10-12-2024 End: 10-12-2024 ambulatory 10/12/2024 3:30 PM EDT OT/PT/Speech Visit [facility] [address] [place] [address] Adali Munroe, CCC-FULL SERVICE SUPERVISOR Approving additional speech therapy [facility] Comment on above: Approving additional speech therapy Start: 10-12-2024 End: 01-11-2025 Bacteria identified in Urine by Culture [facility] Work Phone: Comment on above: Expected: 10/12/2024, Expires: Start: 10-12-2024 Evaluation of diagnostic study results [facility] Start: 10-11-2024 Influenza [facility] Comment on above: Postponed from 12/14/2023 (Declined at t his time) Start: 10-04-2024 End: 01-03-2025 25-hydroxyvitamin D3 [Mass/volume] in Serum or Plasma [facility] Comment on above: Expected: 10/04/2024, Expires: Start: 10-04-2024 End: 01-03-2025 Basic metabolic 2000 panel - Serum or Plasma [facility] Comment on above: Expected: 10/04/2024, Expires: Start: 10-04-2024 End: 01-03-2025 Cobalamin (Vitamin B12) [Mass/volume] in Serum or Plasma [facility] Comment on above: Expected: 10/04/2024, Expires: Start: 10-04-2024 End: 01-03-2025 Ferritin [Mass/volume] in Serum or Plasma [facility] Comment on above: Expected: 10/04/2024, Expires: Start: 10-04-2024 End: 01-03-2025 Iron and Iron binding capacity panel - Serum or Plasma [facility] Work Phone: Comment on above: Expected: 10/04/2024, Expires: Start: 10-04-2024 End: 10-04-2024 Patient encounter procedure 10/04/2024 10:40 AM EDT Office Visit [facility] [address] [facility] [address] Tasha Deutsch APRN.PROPERTY ADJUSTER [address] [place] [address] [facility] f/u stroke 09/19 [facility] Comment on above: [facility] f/u stroke 09/19 Start: 09-19-2024 Patient discharge [facility] Start: 09-17-2024 Speech therapy management [facility] Start: 09-17-2024 Referral to service [facility] Start: 09-15-2024 [facility] Start: 08-30-2024 Catheterization of vein [facility] Start: 08-23-2024 Following clinical pathway protocol [facility] Start: 08-23-2024 [facility] Start: 08-23-2024 Catheterization of vein [facility] Start: 08-22-2024 Recommendation to continue with treatment [facility] Start: 08-22-2024 Urinary bladder training [facility] Start: 08-22-2024 Admission procedure [facility] Start: 08-22-2024 Measuring intake and output [facility] Start: 08-22-2024 Patient referral to dietitian [facility] Start: 08-22-2024 Referral to service [facility] Start: 08-22-2024 Vital signs measurements [facility] Start: 08-22-2024 Wound care [facility] Start: 08-22-2024 [facility] Start: 08-22-2024 Referral to occupational therapist [facility] Start: 08-22-2024 Patient discharge [facility] Start: 08-22-2024 Speech therapy assessment [facility] Start: 08-18-2024 Aspiration precautions [facility] Start: 08-18-2024 Assessment of risk of venous thromboembolism [facility] Start: 08-18-2024 Cardiac monitoring [facility] Start: 08-18-2024 Catheterization of vein [facility] Start: 08-18-2024 Consultation [facility] Start: 08-18-2024 Continuous pulse oximetry [facility] Start: 08-18-2024 Elevation of head of bed [facility] Start: 08-18-2024 Exercises [facility] Start: 08-18-2024 Inhalation therapy procedure [facility] Start: 08-18-2024 Insertion of catheter into peripheral vein [facility] Start: 08-18-2024 Measuring intake and output [facility] Start: 08-18-2024 Notification of physician [facility] Start: 08-18-2024 Patient referral to dietitian [facility] Start: 08-18-2024 Providing care according to standard [facility] Start: 08-18-2024 Provision of activity privileges [facility] Start: 08-18-2024 Referral to occupational therapist [facility] Start: 08-18-2024 Referral to service [facility] [facility] Start: 08-18-2024 Speech therapy assessment [facility] Start: 08-18-2024 Telemedicine consultation with patient [facility] Start: 08-18-2024 Tobacco use cessation education [facility] Start: 08-18-2024 End: 08-18-2024 [facility] Start: 08-18-2024 Vital signs measurements [facility] Start: 08-18-2024 Following clinical pathway protocol [facility] Start: 08-18-2024 Hospital admission, emergency, from emergency room, medical nature [facility] Start: 08-18-2024 Bacteria identified in Blood by Culture Blood Culture [facility] Start: 08-18-2024 Bacteria identified in Urine by Culture Urine Culture [facility] Start: 08-18-2024 Blood culture Blood Culture [facility] Start: 08-18-2024 MRI of brain without contrast Brain without Contrast [facility] Start: 08-18-2024 Verification routine [facility] Start: 08-18-2024 Admission procedure [facility] Start: 08-18-2024 End: 08-18-2024 [facility] Start: 08-18-2024 [facility] Start: 08-18-2024 Consultation [facility] Start: 08-16-2024 [facility] Start: 08-16-2024 Emergency department visit moderate severity EMERGENCY DEPT VISIT LOW MDM [facility] Start: 08-16-2024 Iv infusion hydration each additional hour HYDRATE IV INFUSION ADD-ON [facility] Start: 08-16-2024 Iv infusion hydration initial 31 min-1 hour HYDRATION IV INFUSION INIT [facility] Start: 08-02-2024 DIABETES SCREEN DIABETES SCREEN [facility] Start: 04-26-2024 End: 07-26-2024 25-hydroxyvitamin D3 [Mass/volume] in Serum or Plasma [facility] Comment on above: Expected: 04/26/2024, Expires: Start: 04-26-2024 End: 07-26-2024 CBC W Auto Differential panel - Blood [facility] Work Phone: Comment on above: Expected: 04/26/2024, Expires: Start: 04-26-2024 End: 07-26-2024 Cobalamin (Vitamin B12) [Mass/volume] in Serum or Plasma [facility] Comment on above: Expected: 04/26/2024, Expires: Start: 04-26-2024 End: 07-26-2024 Comprehensive metabolic 2000 panel - Serum or Plasma [facility] Comment on above: Expected: 04/26/2024, Expires: Start: 04-26-2024 End: 07-26-2024 Ferritin [Mass/volume] in Serum or Plasma [facility] Comment on above: Expected: 04/26/2024, Expires: Start: 04-26-2024 End: 07-26-2024 Hemoglobin A1c in Blood [facility] Comment on above: Expected: 04/26/2024, Expires: Start: 04-26-2024 End: 07-26-2024 Iron and Iron binding capacity panel - Serum or Plasma [facility] Comment on above: Expected: 04/26/2024, Expires: Start: 04-26-2024 End: 07-26-2024 LIPID PANEL, NONFASTING [facility] Comment on above: Expected: 04/26/2024, Expires: Start: 04-26-2024 End: 07-26-2024 Magnesium [Mass/volume] in Serum or Plasma [facility] Comment on above: Expected: 04/26/2024, Expires: Start: 04-26-2024 End: 04-26-2024 Patient encounter procedure 04/26/2024 10:00 AM EST Office Visit [facility] [address] [place], [place] [id number] Tasha Deutsch APRN.PROPERTY ADJUSTER [address] [facility] [place] [place] [id number] 6 month follow up [facility] Comment on above: 6 month follow up Start: 04-14-2024 Advance Directive Discussion Advance Directive Discussion [facility] Start: 04-14-2024 Medicare Advantage Annual Wellness Visit Medicare Advantage Annual Wellness Visit [facility] Start: 03-31-2024 Covid-19 Vaccine () Covid-19 Vaccine () [facility] Comment on above: Postponed from 12/13/2022 (Declined at t his time) Start: 03-31-2024 Shingrix Vaccine (1 of 2) Shingrix Vaccine (1 of 2) [facility] Comment on above: Postponed from 01/02/1988 (Insurance Cov erage) Start: 03-31-2024 Urine microalbumin profile DTaP,Tdap,Td Vaccine (1 - Tdap) [facility] Comment on above: Postponed from 1957 (Insurance Cov erage) Start: 12-14-2023 Covid-19 Vaccine () Covid-19 Vaccine () [facility] Start: 12-14-2023 Covid-19 Vaccine () Covid-19 Vaccine () [facility] Start: 12-14-2023 Influenza vaccination [facility] Start: 12-14-2023 [facility] Start: 10-29-2023 Screening for osteoporosis [facility] Start: 10-27-2023 End: 10-27-2023 Patient encounter procedure 10/27/2023 9:40 AM EDT Office Visit [facility] [place] [address] [facility] [address] Jose G Harrington PA-C [address] [place] [address] 6 month f/u [facility] Comment on above: 6 month f/u Start: 10-25-2023 COVID-19 VACCINE (5 - Moderna series) COVID-19 VACCINE (5 - Moderna series) [facility] Comment on above: Postponed from 06/09/2022 (Declined at t his time) Start: 10-12-2023 Influenza vaccination Influenza Vaccine (#1) [facility] Comment on above: Postponed from 12/13/2022 (Declined at t his time) Start: 08-18-2023 End: 08-18-2023 Patient encounter procedure 08/18/2023 11:30 AM EDT Office Visit Orthopaedics [address] [place], [place] [address] Tamia Quezada PA-C [address] [place] [address] left knee Euflexxa #3 Orthopaedics Comment on above: left knee Euflexxa #3 Start: 08-16-2023 DIABETES SCREEN DIABETES SCREEN [facility] Start: 08-15-2023 End: 08-15-2023 Patient encounter procedure 08/15/2023 10:00 AM EDT Office Visit [facility] [address] [place] [address] Tasha Deutsch APRN.INSIDE SALES ADVISOR [address] [place] [address] 4 week follow up HTN [facility] Comment on above: 4 week follow up HTN Start: 08-11-2023 End: 08-11-2023 Patient encounter procedure 08/11/2023 11:30 AM EDT Office Visit Orthopaedics [address] [place] [address] Tamia Quezada PA-C [address] [place] [address] left knee Euflexxa #2 Orthopaedics Comment on above: left knee Euflexxa #2 Start: 07-30-2023 End: 10-29-2023 Bacteria identified in Urine by Culture URINE CULTURE Microbiology Routine Acute right-sided low back pain without sciatica Urinary tract infection with hematuria, site unspecified Expected: 07/30/2023, Expires: 10/29/2023 [facility] Work Phone: Comment on above: Expected: 07/30/2023, Expires: Start: 07-30-2023 End: 10-29-2023 Urinalysis complete panel - Urine URINALYSIS, WITH MICROSCOPIC Lab Routine Urinary tract infection with hematuria, site unspecified Expected: 07/30/2023, Expires: 10/29/2023 [facility] Work Phone: Comment on above: Expected: 07/30/2023, Expires: Start: 06-02-2023 End: 09-01-2023 25-hydroxyvitamin D3 [Mass/volume] in Serum or Plasma VITAMIN D 25 HYDROXY Lab Routine Vitamin D deficiency Expected: 06/02/2023, Expires: 09/01/2023 [facility] Work Phone: Comment on above: Expected: 06/02/2023, Expires: 4 Start: 06-02-2023 End: 09-01-2023 CBC W Auto Differential panel - Blood CBC + DIFF Lab Routine DDD (degenerative disc disease), cervical Primary hypertension Expected: 06/02/2023, Expires: 09/01/2023 [facility] Work Phone: Comment on above: Expected: 06/02/2023, Expires: 4 Start: 06-02-2023 End: 09-01-2023 Cobalamin (Vitamin B12) [Mass/volume] in Serum or Plasma VITAMIN B12 BLOOD Lab Routine Vitamin B12 deficiency Expected: 06/02/2023, Expires: 09/01/2023 [facility] Work Phone: Comment on above: Expected: 06/02/2023, Expires: 4 Start: 06-02-2023 End: 09-01-2023 Comprehensive metabolic 2000 panel - Serum or Plasma COMP METABOLIC PANEL Lab Routine Primary hypertension Expected: 06/02/2023, Expires: 09/01/2023 [facility] Work Phone: Comment on above: Expected: 06/02/2023, Expires: Start: 06-02-2023 End: 09-01-2023 Magnesium [Mass/volume] in Serum or Plasma MAGNESIUM BLD Lab Routine Primary hypertension Expected: 06/02/2023, Expires: 09/01/2023 [facility] Work Phone: Comment on above: Expected: 06/02/2023, Expires: 4 Start: 06-02-2023 End: 09-01-2023 Thyrotropin [Units/volume] in Serum or Plasma TSH BLD Lab Routine Dizziness Expected: 06/02/2023, Expires: 09/01/2023 [facility] Work Phone: Comment on above: Expected: 06/02/2023, Expires: Start: 04-14-2023 Behavioral Health Screening Behavioral Health Screening [facility] Start: 04-13-2023 DEPRESSION ASSESSMENT DEPRESSION ASSESSMENT [facility] Comment on above: Postponed from 04/14/2022 (Declined at t his time) Start: 12-13-2022 Influenza vaccination [facility] Start: 10-29-2022 SHINGRIX VACCINE (1 of 2) SHINGRIX VACCINE (1 of 2) [facility] Comment on above: Postponed from 01/02/1988 (Insurance Cov erage) Start: 10-29-2022 Urine microalbumin profile DTAP,TDAP,TD (1 - Tdap) [facility] Comment on above: Postponed from 1957 (Insurance Cov erage) Start: 10-11-2022 Influenza vaccination INFLUENZA (#1) [facility] Comment on above: Postponed from 12/13/2021 (Declined at t his time) Start: 10-10-2022 End: 12-10-2022 25-hydroxyvitamin D3 [Mass/volume] in Serum or Plasma VITAMIN D 25 HYDROXY Lab Routine Vitamin D deficiency Expected: 10/10/2022, Expires: 12/10/2022 [facility] Work Phone: Comment on above: Expected: 10/10/2022, Expires: 3 Start: 10-10-2022 End: 12-10-2022 CBC W Auto Differential panel - Blood CBC + DIFF Lab Routine Chronic renal insufficiency, stage 3 (moderate) (HCC) Iron deficiency anemia, unspecified iron deficiency anemia type Expected: 10/10/2022, Expires: 12/10/2022 [facility] Work Phone: Comment on above: Expected: 10/10/2022, Expires: 3 Start: 10-10-2022 End: 12-10-2022 Comprehensive metabolic 2000 panel - Serum or Plasma COMP METABOLIC PANEL Lab Routine Chronic renal insufficiency, stage 3 (moderate) (HCC) Expected: 10/10/2022, Expires: 12/10/2022 [facility] Work Phone: Comment on above: Expected: 10/10/2022, Expires: 3 Start: 10-10-2022 End: 12-10-2022 Magnesium [Mass/volume] in Serum or Plasma MAGNESIUM BLD Lab Routine Chronic renal insufficiency, stage 3 (moderate) (HCC) Expected: 10/10/2022, Expires: 12/10/2022 [facility] Work Phone: Comment on above: Expected: 10/10/2022, Expires: 3 Start: 04-14-2022 ADVANCE DIRECTIVE DISCUSSION ADVANCE DIRECTIVE DISCUSSION [facility] Start: 04-14-2022 DEPRESSION ASSESSMENT DEPRESSION ASSESSMENT [facility] Start: 04-07-2022 [facility] Work Phone: Start: 12-13-2021 Influenza vaccination [facility] Start: 09-01-2021 Screening for malignant neoplasm of colon [facility] Start: 08-01-2021 End: 10-01-2021 Basic metabolic 2000 panel - Serum or Plasma BASIC METABOLIC PNL Lab Routine Iron deficiency anemia due to chronic blood loss Expected: 08/01/2021, Expires: 10/01/2021 [facility] Work Phone: Comment on above: Expected: 08/01/2021, Expires: 2 Start: 08-01-2021 End: 10-01-2021 CBC panel - Blood by Automated count CBC Lab Routine Chronic renal insufficiency, stage 3 (moderate) (HCC) Expected: 08/01/2021, Expires: 10/01/2021 [facility] Work Phone: Comment on above: Expected: 08/01/2021, Expires: 2 Start: 08-01-2021 End: 10-01-2021 FERRITIN BLD FERRITIN BLD Lab Routine Iron deficiency anemia due to chronic blood loss Expected: 08/01/2021, Expires: 10/01/2021 [facility] Work Phone: Comment on above: Expected: 08/01/2021, Expires: 2 Start: 08-01-2021 End: 10-01-2021 IRON + TIBC IRON + TIBC Lab Routine Iron deficiency anemia due to chronic blood loss Expected: 08/01/2021, Expires: 10/01/2021 [facility] Work Phone: Comment on above: Expected: 08/01/2021, Expires: 2 Start: 06-22-2021 End: 06-22-2021 Patient encounter procedure Appointment [facility] Work Phone: Start: 04-14-2021 ADVANCE DIRECTIVE DISCUSSION ADVANCE DIRECTIVE DISCUSSION [facility] Start: 11-06-2020 COVID-19 VACCINE (3 - Booster for Moderna series) COVID-19 VACCINE (3 - Booster for Moderna series) [facility] Start: 03-20-2015 PNEUMOCOCCAL: 65+ (2 - PCV) PNEUMOCOCCAL: 65+ (2 - PCV) [facility] Start: 2013 RSV Vaccine (1 - 1-dose 75+ series) RSV Vaccine (1 - 1-dose 75+ series) [facility] Start: 2013 [facility] Start: 1998 RSV Vaccine (1 - 1-dose 60+ series) RSV Vaccine (1 - 1-dose 60+ series) [facility] Start: 01-02-1988 SHINGRIX VACCINE (1 of 2) SHINGRIX VACCINE (1 of 2) [facility] Start: 01-02-1988 [facility] Start: 1978 Screening for malignant neoplasm of breast [facility] Start: 1959 Screening for malignant neoplasm of cervix [facility] Start: 1957 Third diphtheria, tetanus and acellular pertussis (DTaP) vaccination [facility] Start: 1957 Urine microalbumin profile [facility] Start: 01-02-1956 Anxiety Screening Anxiety Screening [facility] Start: 01-02-1956 Depression Screening Depression Screening [facility] Start: 1938 Tetanus vaccination [facility] Bacteria identified in Urine by Culture URINE CULTURE Microbiology Routine Acute right-sided low back pain without sciatica Urinary tract infection with hematuria, site unspecified 07/16/2023 2:28 PM EDT [facility] Work Phone: End: 06-24-2024 CT Head WO contrast CT BRAIN WO IVCON Radiology STAT Transient cerebral ischemia, unspecified type 1 Occurrences starting 05/26/2023 until 06/24/2024 [facility] Work Phone: Comment on above: 1 Occurrences starting 05/26/2023 until 06/24/2024 End: 08-06-2024 CT Neck W contrast IV CTA NECK W IVCON Radiology Routine Bilateral carotid artery stenosis Occlusion and stenosis of unspecified carotid artery Fibromuscular dysplasia (HCC) 1 Occurrences starting 07/08/2023 until 08/06/2024 [facility] Work Phone: Comment on above: 1 Occurrences starting 07/08/2023 until 08/06/2024 End: 08-06-2024 CTA Head Arteries W contrast IV CTA HEAD W IVCON Radiology Routine Bilateral carotid artery stenosis Occlusion and stenosis of unspecified carotid artery Fibromuscular dysplasia (HCC) 1 Occurrences starting 07/08/2023 until 08/06/2024 [facility] Work Phone: Comment on above: 1 Occurrences starting 07/08/2023 until 08/06/2024 End: 11-09-2023 DXA-AXIAL SKELETON DXA-AXIAL SKELETON Radiology Routine Asymptomatic menopause 1 Occurrences starting 10/10/2022 until 11/09/2023 [facility] Work Phone: Comment on above: 1 Occurrences starting 10/10/2022 until 11/09/2023 End: 12-25-2023 ECG COMPLETE ECG COMPLETE ECG Routine Paroxysmal atrial fibrillation (HCC) 1 Occurrences starting 12/24/2022 until 12/25/2023 [facility] Work Phone: Comment on above: 1 Occurrences starting 12/24/2022 until 12/25/2023 Hemoglobin A1c/Hemoglobin.total in Blood [facility] OUTSIDE VENDOR CARDI AC OUTPATIENT EXTENDED RHYTHM RECORDING (WITHOUT TELEMETRY) OUTSIDE VENDOR CARDIAC OUTPATIENT EXTENDED RHYTHM RECORDING (WITHOUT TELEMETRY) Holter Routine Paroxysmal atrial fibrillation (HCC) Ordered: 04/11/2022 [facility] Work Phone: Comment on above: Ordered: 04/11/2022 Patient Education [facility] Work Phone: Patient referral [facility] Work Phone: Troponin T.cardiac [Mass/volume] in Serum or Plasma by High sensitivity method [facility] Urinalysis complete panel - Urine URINALYSIS WITH MICROSCOPIC, REFLEX CULTURE Lab Routine Urinary urgency 04/05/2024 4:01 PM EST [facility] Work Phone: Urine culture [facility] End: 05-26-2024 US Carotid arteries - bilateral US CAROTID ARTERIES [facility] Vascular Lab Routine Right carotid bruit 1 Occurrences starting 05/26/2023 until 05/26/2024 [facility] Work Phone: Comment on above: 1 Occurrences starting 05/26/2023 until 05/26/2024 [facility] Immunizations Immunization Date Immunization Notes Care Provider iMle ramon 02-06-2022 COVID-19 vaccine, ag e 12+ yr, bivalent (MODERNA) Julee Last'Kirk PT [facility] 03-12-2021 COVID-19 original vaccine, full dose, monovalent (MODERNA) Julee Last'Kirk PT [facility] 06-09-2020 Covid (Moderna) [facility] 05-12-2020 Covid (Moderna) [facility] 01-28-2018 influenza virus vacc ine, unspecified formulation Sandra Horne MD Work Phone: [facility] 05-24-2015 pneumococcal conjuga te vaccine, 13 valent NA Harrington PA-C Work Phone: [facility] 10-07-2014 tuberculin skin test ; purified protein derivative solution, intradermal Tasha Suppan COOPERATIVE EDUCATION COORDINATOR.PROPERTY ADJUSTER Work Phone: [facility] 03-20-2014 pneumococcal polysaccharide vaccine, 23 valent Jazmyne Bernabe RN [facility] Work Phone: 06-11-2011 tuberculin skin test ; purified protein derivative solution, intradermal Tasha Suppan COOPERATIVE EDUCATION COORDINATOR.PROPERTY ADJUSTER Work Phone: [facility] 06-04-2011 tuberculin skin test ; purified protein derivative solution, intradermal Tasha Suppan COOPERATIVE EDUCATION COORDINATOR.PROPERTY ADJUSTER Work Phone: [facility] 03-16-2007 influenza, seasonal, injectable NA Harrington PA-C Work Phone: [facility] 03-16-2007 pneumococcal polysaccharide vaccine, 23 valent NA Harrington PA-C Work Phone: [facility] Payers Date Payer Category Payer Self-pay [id number] 2024 Private Health Insurance [employer] [id number] 2021 Medicare [employer] MEDICARE A ETNA MEDICARE PPO [id number] 2021-Present [phone] [address] [place] [address] PPO [id number] 2021 Medicare [employer] MEDICARE A ETNA MEDICARE PPO [id number] 2021-Present [phone] [id number] [place] [id number] PPO [id number] 2021 Medicare (Managed Care) [id number]. [id number] 2021 Private Health Insurance [id number] 1940 Unknown [id number] 2.16.840.1.945567.3.579.2. 594 Medicare MEDICARE PART A B [id number] Unknown [id number] Unknown [id number] 2.16.840.1.020710.3.579.2. 462 Unknown [id number] 2.16840.1.006114.3.579.2. 462 Unknown [id number] 2.16840.1.873689.3.579.2. 462 Unknown [id number] 2.16840.1.301166.3.579.2. 462 Unknown [id number] 2.840.1.932885.3.579.2. 462 Unknown [id number] 2.840.1.961765.3.579.2. 462 Unknown [id number] 2.840.1.608589.3.579.2. 462 Unknown [id number] 2.840.1.716218.3.579.2. 462 Unknown [id number] 2.840.1.214040.3.579.2. 462 Unknown [id number] 2.840.1.868023.3.579.2. 462 Unknown [id number] 2.840.1.247564.3.579.2. 462 Unknown [id number] 2.840.1.843516.3.579.2. 462 Unknown [id number] 2.840.1.038882.3.579.2. 462 Unknown [id number] 2.840.1.536454.3.579.2. 462 Unknown [id number] 2.840.1.179001.3.579.2. 462 Unknown [id number] 2.840.1.208273.3.579.2. 462 Unknown [id number] 2.840.1.308722.3.579.2. 462 Unknown [id number] 2.840.1.945236.3.579.2. 462 Unknown [id number] 2.840.1.541281.3.579.2. 462 Unknown [id number] 2.16.840.1.273411.3.579.2. 462 Unknown [id number] 2.16.840.1.454275.3.579.2. 462 Unknown [id number] 2.16.840.1.379107.3.579.2. 462 Unknown [id number] 2.16.840.1.868450.3.579.2. 462 Unknown [id number] 2.16.840.1.235488.3.579.2. 462 Unknown [id number] 2.16.840.1.900513.3.579.2. 462 Unknown [id number] 2.16.840.1.360081.3.579.2. 462 Unknown [id number] 2.16.840.1.179824.3.579.2. 462 Unknown [id number] 2.16.840.1.078889.3.579.2. 462 Unknown [id number] 2.16.840.1.758550.3.579.2. 462 Unknown [id number] 2.16.840.1.530571.3.579.2. 462 Social History Date Type Detail Facility Start: 06-22-2021 End: 06-22-2021 Assertion Unknown if ever smoked [facility] Work Phone: Start: 08-27-2011 End: 04-11-2022 Tobacco smoking status NHIS Never smoked tobacco [facility] Start: 08-27-2011 End: 04-11-2022 Tobacco use and exposure Smokeless tobacco non-user [facility] Start: 02-20-2021 End: 10-12-2024 Alcohol intake Current non-drinker of alcohol (finding) [facility] Start: 1940 Sex Assigned At Not on file [facility] Start: 05-14-2021 End: 10-26-2021 Exposure to SARS-CoV-2 (event) Not sure [facility] Start: 1940 Sex Assigned At Female [facility] Start: 10-10-2022 End: 10-24-2022 History of Social function [facility] Work Phone: Start: 10-10-2022 End: 10-24-2022 Tobacco use panel [facility] Work Phone: Start: 03-15-2012 Adult Depression Screening Assessment 0 [facility] Work Phone: Start: 05-02-2022 Gender identity Identifies as female gender (finding) [facility] Start: 05-02-2022 Sexual orientation Heterosexual (finding) [facility] Has the [employer], or [employer] threatened to shut off services in your home in past 12Mo No [facility] Do you belong to any clubs or organizations such as cheondoism groups, unions, fraternal or athletic groups, or school groups? Yes [facility] Are you now , , , , never or living with a partner? [facility] How often to you hav e a drink containing alcohol? Never [facility] Do you feel stress - tense, restless, nervous, or anxious, or unable to sleep at night because your mind is troubled all the time - these days [OSQ] Not at all [facility] (I/We) worried wheramon er (my/our) food would run out before (I/we) got money to buy more. Never true [facility] Start: 08-22-2024 Tobacco Use Tobacco Use [facility] How hard is it for y ou to pay for the very basics like food, housing, medical care, and heating Not very hard [facility] Start: 11-12-2024 Alcoholic beverage intake Lifetime non-drinker (finding) [facility] Start: 08-18-2024 Sex Female (finding) [facility] Medical Equipment Procedure Code Equipment Code Equipment Origin al Text Equipment Identifier Dates Acetabular Shell [id number]_[facility] Start: 05-30-2011 Hole Eliminator Screw [id number]_[facility] Start: 05-30-2011 Lje-Qd-X-Kind Implant - [id number]_[facility] Start: 05-30-2011 Comment on above: Description: Corial stem Iul-Cm-K-Kind Implant - [id number]_[facility] Start: 05-30-2011 Comment on above: Description: pinnacl e poly shelly jimena Rsf-Bv-O-Kind Implant - [id number]_[facility] Start: 05-30-2011 Comment on above: Description: articul /claude femoral head Corail Stem [id number]_[facility] Start: 10-03-2014 Acetabular Shell [id number]_[facility] Start: 10-03-2014 [place] Hole Eliminator Screw [id number]_[facility] Start: 10-03-2014 Femoral Head [id number]_[facility] Start: 10-03-2014 [employer]iner [id number] Start: 10-03-2014 Goals Date Patient Goal Desired Activity /State Functional Status Date Assessment Result Facility 09-27-2024 Total score [AUDIT-C] 0 09/28/19 12:57 PM EDT User, [email or web address] [facility] 09-27-2024 How often to you hav e a drink containing alcohol? Never 09/27/2024 12:57 PM EDT User, Mychart Never [facility] 09-27-2024 Functional status Patient does n ot drink 09/27/2024 12:57 PM EDT User, TranSiChart Patient does not drink [facility] 09-27-2024 How often do you hav e 6 or more drinks on 1 occasion? Never 09/27/2024 12:57 PM EDT User, Mychart Never [facility] 09-19-2024 Functional status Bathroom Privilege [facility] Work Phone: 08-22-2024 Functional status Activity Abili ty With Assist of 1;With Assist of 2 [facility] Work Phone: 08-21-2024 Functional status Bedrest [facility] Work Phone: Mental Status Date Assessment Result Facility 10-18-2024 Cognitive function Voice/Name [facility] Work Phone: 09-19-2024 Cognitive function Voice/Name [facility] Work Phone: 09-18-2024 Cognitive function Appropriate;Cooperativ e [facility] Work Phone: 08-22-2024 Cognitive function Voice/Name [facility] Work Phone: 08-18-2024 Cognitive function Voice/Name [facility] Work Phone: 08-16-2024 Cognitive function Voice/Name [facility] Work Phone: Clinical Notes 07-28-2017 to 01-05-2025 Telephone Encounter - Tasha Deutsch APRN.[facility] - 12/06/2024 7:41 AM EDTTelephone Encounter - Tasha Deutsch APRN.[facility] - 12/06/2024 7:41 AM VINAYAK ChaudhryW - 11/16/2024 10:38 AM EDT Note Date & Type Note Facility 01-05-2025 Note HNO ID: [id number] Author: ?, ?, ? Service: ? Author Type: ? Type: Progress Notes Filed: 01/05/2025 15:46 Note Text: POPULATION HEALTH NAVIGATION OUTREACH Action/I Returned Mychart/Call Patient in [facility] facility Reason for Outreach Returned Call/MyChart Patient Contacted: Spoke to patient/parent/or legal guardian Patient identified by name and date of : Yes Returned call/MyChart actions taken: Patient in [facility] facility Navigation Signature: Ana Luisa Paige January 05, 2025 3:45 PM [facility] 01-05-2025 Note HNO ID: [id number] Author: ?, ?, ? Service: ? Author Type: ? Type: Progress Notes Filed: 01/05/2025 15:02 Note Text: POPULATION HEALTH NAVIGATION OUTREACH Action/FYI - [facility] Wellness: Never Done Flu: Due for dose [...] Luisa Paige January 05, 2025 2:46 PM [facility] 01-05-2025 Note Patient Outreach (ALYSSA TNAV) BEHZAD HAY ([id number]) 1940 F Date Time Provider Department 01/05/25 TASHA DEUTSCH During your visit today, we recorded the following information about you: Ana Luisa Paige 01/05/2025 3:02 PM Signed POPULATION HEALTH NAVIGATION OUTREACH Action/ - [facility] Wellness: Never Done Flu: Due for dose 1 since 12/13/2024 Called Patient: "Call cannot be completed as dialed" - MyChart Sent Reason for Outreach Care Gap/HCC or Scheduling Wellness Visits Care Gaps due: Medicare Annual Wellness Visit Flu Vaccine Patient Contacted: Unable or unnecessary to reach patient: Unable to leave message Mosec, Mobile Secretaryhart message sent Navigation Signature: Ana Luisa Paige January 05, 2025 2:46 PM Ana Luisa Paige 01/05/2025 3:46 PM Signed POPULATION HEALTH NAVIGATION OUTREACH Action/ Returned Mychart/Call Patient in [facility] facility Reason for Outreach Returned Call/MyChart Patient Contacted: Spoke to patient/parent/or legal guardian Patient identified by name and date of : Yes Returned call/MyChart actions taken: Patient in [facility] facility Navigation Signature: Ana Luisa Paige January 05, 2025 3:45 PM Allergies As of Date: 01/05/2025 Noted Allergy Reaction ADHESIVE TAPE (ROSINS) 08/27/2011 2 - Rash BACTRIM (SULFAMETHOXAZOLE-TRIMETH* 019 2 - Rash MACROBID (NITROFURANTOIN MONOHYD/*09/25/2018 2 - Rash [id number] REDUCTASE INHIBIT*10/06/2014 5 - Intolerance Comments: severe [...] hip [M16.11] 02/27/2017 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/2017 07/06/2018 Collagenous colitis [K52.831] 12/21/2018 IBS (irritable bowel syndrome) [K58.9] 12/21/2018 Hiatal hernia [K44.9] 09/11/2020 Fall from standing [W19.XXXA] 06/05/2021 Rotator cuff tear arthropathy, left [M75.102, M*10/29/2021 Paroxysmal atrial fibrillation (HCC) [I48.0] 04/11/2022 Primary hypertension [I10] 12/30/2022 Acute pain of right shoulder [M25.511] 04/16/2023 Severe pain of left shoulder [M25.512] 04/16/2023 Cervicalgia [M54.2] 04/16/2023 Encounter Status:Closed by ANA LUISA PAIGE on 01/05/25 [facility] 12-31-2024 Note HNO ID: [id number] Author: ?, ?, ? Service: ? Author Type: ? Type: Progress Notes Filed: 12/31/2024 09:46 Note Text: Patient is identified through a medication adherence outreach initiative based on pharmacy claims data from: [employer] Medication Adherence Category: Hypertension First Review Attribution Status: Questionable attribution, Med not prescribed by [facility] provider, but no [facility] primary care/Patient is seen by a [facility] provider Ishmeal Romo [facility] 12-31-2024 Note Patient Outreach (PH POHE) BHARTIBEHZAD Lugo ([id number]) 1940 F Date Time Provider Department 12/31/24 [...] seen by a [facility] provider Ishmael Romo [facility] Allergies As of Date: 12/31/2024 Noted Allergy Reaction ADHESIVE TAPE (ROSINS) 08/27/2011 2 - Rash BACTRIM (SULFAMETHOXAZOLE-TRIMETH* 019 2 - Rash MACROBID (NITROFURANTOIN MONOHYD/*09/25/2018 2 - Rash HYASYRA-TDY-NYT REDUCTASE INHIBIT*10/06/2014 5 - Intolerance Comments: severe [...] hip [M16.11] 02/27/2017 Iatrogenic Jesse's disease (HCC) [NCK4286] 07/28/2017 07/06/2018 Collagenous colitis [K52.831] 12/21/2018 IBS (irritable bowel syndrome) [K58.9] 12/21/2018 Hiatal hernia [K44.9] 09/11/2020 Fall from standing [W19.XXXA] 06/05/2021 Rotator cuff tear arthropathy, left [M75.102, M*10/29/2021 Paroxysmal atrial fibrillation (HCC) [I48.0] 04/11/2022 Primary hypertension [I10] 12/30/2022 Acute pain of right shoulder [M25.511] 04/16/2023 Severe pain of left shoulder [M25.512] 04/16/2023 Cervicalgia [M54.2] 04/16/2023 Encounter Status:Closed by ISHMAEL ROMO on 12/31/24 [facility] 12-06-2024 Telephone encounter Note Ok. You always have the final say. Please continue low dose aspirin. [facility] 12-06-2024 Miscellaneous Notes Ok. You always [...] Beth Obregon MA documented in this encounter [facility] 12-03-2024 Telephone encounter Note The discharge summary from her hospital stay said: If unable to get a Watchman resume home Eliquis in 1 month poststroke November 18 and then stop aspirin. I know Behzad did not want to be on blood thinners prior to her stroke. [facility] 12-03-2024 Telephone encounter Note See message and advise. Beth Obregon MA [facility] 11-23-2024 Telephone encounter Note Patient was admitted to [facility] on October 18, 2024 and discharged on November 16, 2024 for basal ganglia hemorrhage Patient is an 84-year-old female with a history of atrial fibrillation on Eliquis last dose October 18 in the morning, hypertension, hyperlipidemia who presented from [place] with an L. thalamic intracranial hemorrhage. LKW [...] therapy. She is being discharged to a [facility] facility in stable condition. Discharge plan has [...] mobility is normal. No regurgitation. No stenosis. [facility] 11-23-2024 Miscellaneous Notes Patient was admitted to [facility] on October 18, 2024 and discharged on November 16, 2024 for basal ganglia hemorrhage Patient is an 84-year-old female with a history of atrial fibrillation on Eliquis last dose October 18 in the morning, hypertension, hyperlipidemia who presented from [place] with an L. thalamic intracranial hemorrhage. LKW 2100 October 17. Patient awoke at 6 AM October 18 with some right sided weakness was found in her home by her health aide at 9 AM slumped against the wall with right-sided weakness, right facial droop, dysarthria. NIHSS on arrival [facility] ED 16. [facility] at [facility] with left [...] therapy. She is being discharged to a [facility] facility in stable condition. Discharge plan has [...] regurgitation. No stenosis. documented in this encounter [facility] 11-16-2024 Miscellaneous Notes Stroke patient education [...] and safety in ADLs. Outcome: Progressing Problem: FULL SERVICE SUPERVISOR - Language Goal: Command Following - Patient [...] try to vault side-rail with restraints applied. HIGH SPEED WARPER TENDER requested to be pulled from floor to [...] x3-5 sessions 11/09/2024 1249 by Shantal Mclean, FULL SERVICE SUPERVISOR Outcome: Ongoing Goal: Bolus challenge - Patient will accept trials of thin liquids x10-15 trials, given moderate cues for use of strategies to improve bolus control/timing of swallow initiation with no signs of aspiration to determine readiness for repeat study 11/09/2024 1249 by Shantal Mclean, FULL SERVICE SUPERVISOR Outcome: Ongoing Goal: Swallow Strategy (Oral)- Patient [...] and safety in ADLs. Outcome: Progressing Problem: FULL SERVICE SUPERVISOR - Language Goal: Command Following - Patient [...] readiness for repeat instrumental. Outcome: Ongoing Problem: FULL SERVICE SUPERVISOR - Language Goal: Command Following - Patient [...] navigate home and community. Outcome: Progressing Problem: FULL SERVICE SUPERVISOR - Language Goal: Command Following - Patient [...] Goal: Effective Communication Skills Outcome: Progressing Problem: FULL SERVICE SUPERVISOR - Language Goal: Command Following - Patient [...] cross their legs. Pillow support applied using [place] pillow beneath feet and heels and standard [...] notified of assessment and plan. Please page #[phone] or reconsult with any further needs. Problem: [...] 7/7 AM), HTN, HLD who presents from [place] with L thalamic ICH with hosp course [...] Hepatology, and Nutrition Clinical Fellow PGY-4 Pager: [phone] Problem: Adult Inpatient Plan of Care Goal: [...] Please advise. Thanks, Arianna Wong RN, Ph: [phone] Above page sent to VIDYA Michelle. 10/29/24 [...] and safety in ADLs. Outcome: Progressing Problem: FULL SERVICE SUPERVISOR - Language Goal: Command Following - Patient [...] labs. RD to continue to follow. Problem: FULL SERVICE SUPERVISOR - Language Goal: Command Following - Patient [...] and safety in ADLs. Outcome: Progressing Problem: FULL SERVICE SUPERVISOR - Language Goal: Command Following - Patient [...] oropharyngeal swallow function to most appropriately guide FULL SERVICE SUPERVISOR plan of care Outcome: Not Met Problem: [...] pharyngeal swallow function to most appropriately guide FULL SERVICE SUPERVISOR plan of care Outcome: Progressing Problem: Enteral Nutrition Goal: Feeding Tolerance Outcome: Progressing Problem: FULL SERVICE SUPERVISOR - Language Goal: Command Following - Patient [...] oropharyngeal swallow function to most appropriately guide FULL SERVICE SUPERVISOR plan of care Outcome: Ongoing Problem: Dysphagia Goal: FEES - Patient will participate in Fiberoptic Endoscopic Evaluation of Swallowing (FEES) study to objectively assess pharyngeal swallow function to most appropriately guide FULL SERVICE SUPERVISOR plan of care Outcome: Not Met Problem: [...] for the [facility] at the [facility]. Given the nature of Behzad Hay's stroke, I was not able to complete a full visit. I have left my business card and a BEFAST magnet within the room for any loved ones who may visit. ROBBY Al, RN Stroke Nurse Navigator [place] [address] Office [email or web address] On admission to [facility] ED, [...] MD Neurology, PGY3 Pt [facility] upon initial assessment pts NIH noted to [...] pharyngeal swallow function to most appropriately guide FULL SERVICE SUPERVISOR plan of care Outcome: Ongoing Problem: FULL SERVICE SUPERVISOR - Language Goal: Command Following - Patient [...] Outcome: Progressing documented in this encounter [facility] 11-16-2024 History of Present illness Narrative Care Management Discharge Note Selected Continued Care - Admitted Since 10/18/2024 Destination Coordination complete. Service Provider Services Address Phone Fax Patient Preferred [facility] Correction [address] [place] [address] [phone] -- Transport Request Mode of Transfer: [facility] Name of Discharge Transport Company: [facility] ETA: 11/16/2024 @ 3:20pm Patient medically stable for discharge per physician/medical team. Patient/Pinsetter Mechanic Helper remain in agreement with the discharge plan. PAM Fleming, [place] Program Admin Available by Secure Chat Acute Occupational Therapy Treatment Prior Gross Functional Mobility: needs assist Current AM-PAC score(s): CURRENT AM-PAC Activity Raw Score: 8 Based on the above AM-PAC score(s), and OT clinical judgment, discharge destination recommendation is: [facility] Facility Barriers to discharge home: Patient needs [...] Edema: Mobility Assessment/Intervention: Supine to Sit Mobility [place] Level: Supine->Sit: dependent (less than 25% patient effort) Physical Assist: Supine->Sit: 2 person assist Bed Features/Set-up: Supine->Sit: Head of bed elevated Skilled Rationale: Verbal cues Skilled Intervention/Details: Supine->Sit: limited initiation from pt despite max cues Transfer Assessment/Intervention: Sit to Stand Transfer [place] Level: Sit->Stand: maximum assist (25% patient effort) [...] initiation from pt this date Bed-Chair Transfer [place] Level: Bed<->Chair: dependent (less than 25% patient effort) Physical Assist: Bed<->Chair: 2 person assist Assistive Device: Bed<->Chair: gait belt, arm in arm Skilled Rationale: Verbal cues, Tactile cues Skilled Intervention/Details: Bed<->Chair: squat pivot transfer to left with bilat arm in arm, tactile cues at hips, limited initiation from pt and unable to step to chair this date Functional Mobility: Outcome Score(s): CURRENT [facility] Daily Activity Inpatient Short Form Putting on/Taking Off Lower Body Clothin - Total Assistance Bathin - A Lot of Assistance Toiletin - Total Assistance Putting on/Taking Off Upper Body Clothin - Total Assistance Groomin - A Lot of Assistance Eatin - Total Assistance CURRENT [facility] Activity Raw Score: 8 CURRENT -[facility] Activity Functional Limitation/Modifier: 85.69% Currently Impaired [...] System for discharge. Teodora Alcantar Care Management Register Clerk Acute Physical Therapy Treatment Prior Gross Functional Mobility: needs assist Current AM-PAC score(s): CURRENT AM-PAC Mobility Raw Score: 10 Based on the above AM-PAC score(s) and PT clinical judgment, patient is a good candidate for discharge to [facility] Facility Barriers to discharge home: Patient needs [...] upright Mobility Assessment/Intervention: Supine to Sit Mobility [place] Level: Supine->Sit: dependent (less than 25% patient effort) Physical Assist: Supine->Sit: 2 person assist Bed Features/Set-up: Supine->Sit: Head of bed elevated Skilled Rationale: Positioning, Sequencing, Verbal cues, Cues for increased safety, Technique of activity Skilled Intervention/Details: Supine->Sit: x1 to right, total assist at trunk and BLE to come to upright, no initiation noted despite cues Sit to Supine Mobility [place] Level: Sit->Supine: not tested Skilled Intervention/Details: Sit->Supine: pt in recliner with needs in reach no additional complaints Transfer Assessment/Intervention: Sit to Stand Transfer [place] Level: Sit->Stand: maximum assist (25% patient effort) Physical Assist: Sit->Stand: 2 person assist Assistive Device: Sit->Stand: arm in arm, gait belt Skilled Rationale: Positioning, Sequencing, Verbal cues, Cues for increased safety, Technique of activity, Full extension to upright positioning/posture Skilled Intervention/Details: Sit->Stand: x2 from EOB, pt requires patellar block, ischail assist to initiate and complete transfer Stand to Sit Transfer [place] Level: Stand->Sit: moderate assist (50% patient effort) Physical Assist: Stand->Sit: 2 person assist Assistive Device: Stand->Sit: gait belt, arm in arm Skilled Rationale: Positioning, Sequencing, Verbal cues, Cues for increased safety, Upright gaze/neck extension Skilled Intervention/Details: Stand->Sit: x1 to EOB x1 to recliner, cues for safety, controlled descent Bed-Chair Transfer [place] Level: Bed<->Chair: dependent (less than 25% patient effort) Physical Assist: Bed<->Chair: 2 person assist Assistive Device: Bed<->Chair: gait belt, arm in arm Skilled Rationale: Positioning, Sequencing, Verbal cues, Cues for increased safety, Technique of activity, Controlled descent for sitting Skilled Intervention/Details: Bed<->Chair: squat pivot x1 to left, pt unable to initiate side steps to recliner. Gait/Functional Mobility Assessment/Intervention: Gait Assessment [place] Level: Gait: unable to assess Stairs Assessment/Intervention: Stairs Assessment [place] Level: Stair Negotiation: not tested Outcome Score(s): CURRENT [facility] Basic Mobility Inpatient Short Form Turning over [...] with a railin - Total Assistance CURRENT [facility] Mobility Raw Score: 10 CURRENT [facility] Mobility Functional Limitation: 76.75% Impaired in Basic [...] BLS Name of Discharge Transport Company: (P) [facility] ETA: (P) 11/16/2024 @ 3:20pm Pick-up from [facility] 1086/A Destination [facility] [address] [place] [address] Teodora Alcantar Care Management Register Clerk Placement Plan Expected Discharge Date: TBD Referred Level of Care: SNF Barriers: pre-cert; out-of-town transportation Current Referrals and Status 1. [facility] - accepted/reserved SW contacted SNF for update [...] scheduled for tomorrow (11/16) @ 3:20pm via [facility]. SW updated med team and SNF. Bedside nurse to update pt and pt's daughter who is currently at bedside. PAM Starks, LUIS ANTONIO-S Medical Social Work Please note that I am a float SW and may not be covering the same unit each day. Please reach out to the floor/unit SW for additional needs/concerns. Main CM/SW Office (Friday-Friday, 8:00am-4:30pm): [phone] For any other coverage needs, please consult Sarkisa under Care Management. Acute Physical Therapy Treatment Prior Gross Functional Mobility: needs assist Current AM-PAC score(s): CURRENT AM-PAC Mobility Raw Score: 7 Based on the above AM-PAC score(s) and PT clinical judgment, patient is a good candidate for discharge to [facility] Facility Barriers to discharge home: Patient needs [...] assist Mobility Assessment/Intervention: Supine to Sit Mobility [place] Level: Supine->Sit: maximum assist (25% patient effort) Physical Assist: Supine->Sit: 2 person assist Bed Features/Set-up: Supine->Sit: Head of bed elevated Skilled Rationale: Verbal cues, Sequencing, Technique of activity Sit to Supine Mobility [place] Level: Sit->Supine: moderate assist (50% patient effort) Physical Assist: Sit->Supine: 2 person assist Bed Features/Set-up: Sit->Supine: Head of bed elevated Skilled Rationale: Verbal cues, Sequencing, Technique of activity Transfer Assessment/Intervention: Sit to Stand Transfer [place] Level: Sit->Stand: moderate assist (50% patient effort) Physical Assist: Sit->Stand: 2 person assist Assistive Device: Sit->Stand: gait belt, arm in arm Skilled Rationale: Verbal cues, Facilitate anterior shift Skilled Intervention/Details: Sit->Stand: x 2 from the EOB Stand to Sit Transfer [place] Level: Stand->Sit: moderate assist (50% patient effort) [...] with a railin - Total Assistance CURRENT [facility] Mobility Raw Score: 7 CURRENT [facility] Mobility Functional Limitation: 92.36% Impaired in Basic [...] OT clinical judgment, discharge destination recommendation is: Correction Facility Barriers to discharge home: Patient needs [...] and Edema: Mobility Assessment/Intervention: Scooting Bridging Mobility [place] Level: Scooting/Bridging: dependent (less than 25% patient effort) Physical Assist: Scooting/Bridgin person assist Bed Features/Set-up: Scooting/Bridging: Flat Skilled Rationale: Verbal cues Skilled Intervention/Details: Scooting/Bridging: boost in bed Supine to Sit Mobility [place] Level: Supine->Sit: maximum assist (25% patient effort) Physical Assist: Supine->Sit: 2 person assist Bed Features/Set-up: Supine->Sit: Head of bed elevated Skilled Rationale: Verbal cues Skilled Intervention/Details: Supine->Sit: cues for initiation and sequencing, tactile cues to guide left hand to opposite rail, increased time Sit to Supine Mobility [place] Level: Sit->Supine: moderate assist (50% patient effort) Physical Assist: Sit->Supine: 2 person assist Bed Features/Set-up: Sit->Supine: Head of bed elevated Skilled Rationale: Verbal cues Skilled Intervention/Details: Sit->Supine: cues for pacing and initiation Transfer Assessment/Intervention: Sit to Stand Transfer [place] Level: Sit->Stand: moderate assist (50% patient effort) [...] step with bilat feet Outcome Score(s): CURRENT [facility] Daily Activity Inpatient Short Form Putting on/Taking Off Lower Body Clothin - Total Assistance Bathin - A Lot of Assistance Toiletin - Total Assistance Putting on/Taking Off Upper Body Clothin - Total Assistance Groomin - A Lot of Assistance Eatin - Total Assistance CURRENT [facility] Activity Raw Score: 8 CURRENT [facility] Activity Functional Limitation/Modifier: 85.69% Currently Impaired in [...] on the below outcome measures/assessment score(s), and FULL SERVICE SUPERVISOR clinical judgment, discharge destination recommendation is: [facility] Facility Barriers to discharge home: Need for 1:1 assist to ensure safety with all PO intake Supporting factors for discharge setting: Impaired speech and language skills limiting ability to communicate basic wants/needs, Impaired cognitive skills limiting independence Acute FULL SERVICE SUPERVISOR Outcomes Tracking Communicate basic wants and needs?: [...] ice chips with RN post oral care. FULL SERVICE SUPERVISOR to continue to follow to address communication, motor speech, and dysphagia. Subjective information: Patient alert, resting in bed upon FULL SERVICE SUPERVISOR arrival. No family present. Pain: General Pain Documentation (Adult, OB, Peds) Presence of Pain: denies pain/discomfort Presence of Pain Score (Auto-calculated): 0 Precautions: Patient Safety Communication Prior to Visit: Nursing Lines/Tubes/Drains (Rehab Status): PEG Existing Precautions/Restrictions: fall Respiratory Status: O2 Sat (%): [96 %-100 %] 97 % O2 Device: room air Flow (L/min): [2] 2 Oxygen Concentration (%): [28] 28 Acute FULL SERVICE SUPERVISOR Goals Plan of Care by ULISES Lombardo at 11/15/2024 8:50 AM Version 1 of 1 Problem: FULL SERVICE SUPERVISOR - Language Goal: Command Following - Patient [...] Benefiting the most from choral production with FULL SERVICE SUPERVISOR given dysarthria/apraxia Progressed to elaboration of carrier [...] communicating and no family present for education. FULL SERVICE SUPERVISOR did re-orientate and educate on dysphagia and recommendations. Patient Education/Instruction Learners: Patient Education provided: Role of this discipline Teaching method: Verbal Education/Instruction Learner response: Needs review Learning preferences: Auditory Learning considerations: Speech expression, Speech comprehension Patient Instruction/Education comments: Reviewed FULL SERVICE SUPERVISOR purpose and POC. Plan for next session: 11/15: fair; dysphagia and language treatment. FULL SERVICE SUPERVISOR Outcomes: FOIS 1 Speech Language Pathologist: ULISES [...] of session: none altered Needs in reach. FULL SERVICE SUPERVISOR Evaluation and Treatment Time Speech Therapy - Individual 04296: 8 Swallowing Dysfunction Treatment 59140: 8 Upon discontinuation of Acute Care Speech Therapy Services or patient discharge from the hospital this note represents the current Speech Therapy Discharge Summary Speech Language Pathology Attempt Note 11/14/2024 FULL SERVICE SUPERVISOR Therapy Completed: (P) Attempted Attempted to see pt for FULL SERVICE SUPERVISOR intervention, however pt is currently not medically [...] Hemorrhage Note IDENTIFYING INFORMATION Behzad Hay MR# [id number] 11/14/2024 HISTORY OF PRESENT ILLNESS Behzad Hay is a 84 y.o. female with a history of A fib on eliquis (Last dose 10/18 AM), HTN, HLD who presented from [place] with L thalamic ICH. LKW 2100 10/17. [...] for frequent neuro check 10/19: Transfer to CT service 10/20: drowsy today after receiving Seroquel overnight, repeat CTH stable, increase metoprolol for afib RVR 10/21: improved exam today, FULL SERVICE SUPERVISOR re-eval pending, lisinopril increased to home dose [...] off sitter, plan to follow up with FULL SERVICE SUPERVISOR tomorrow for dysphagia 11/08: FEES planned, will [...] likely be discharged to pending medical readiness Dvaid Sutton, COOPERATIVE EDUCATION COORDINATOR-PROPERTY ADJUSTER 11/14/2024 11:35 AM VITAL SIGNS Temp: [97.8 [...] interviewed and examined this patient with the FIELD TRAFFIC INVESTIGATOR. I reviewed the history and exam detailed [...] Hemorrhage Note IDENTIFYING INFORMATION Behzad Hay MR# [id number] 11/13/2024 HISTORY OF PRESENT ILLNESS Behzad Hay is a 84 y.o. female with a history of A fib on eliquis (Last dose 10/18 AM), HTN, HLD who presented from [place] with L thalamic ICH. LKW 2100 10/17. Pt reportedly awoke at 0600 on 10/18 with some R sided weakness and was found by her home health aide at 0900 slumped against the wall with R sided weakness, R facial droop and dysarthria. NIHSS on arrival to [facility] ED 16 (2, 1 commands, 1 [...] for frequent neuro check 10/19: Transfer to CT service 10/20: drowsy today after receiving Seroquel overnight, repeat CTH stable, increase metoprolol for afib RVR 10/21: improved exam today, FULL SERVICE SUPERVISOR re-eval pending, lisinopril increased to home dose [...] off sitter, plan to follow up with FULL SERVICE SUPERVISOR tomorrow for dysphagia 11/08: FEES planned, will [...] Intracerebral Hemorrhage Score Intracerebral Hemorrhage (ICH) Scale [place] Coma Scale Points: 1-->GCS 5-12 Age>/=80: 1-->yes [...] discharged to pending medical readiness David Sutton, EAN-PROPERTY ADJUSTER 11/13/2024 11:26 AM VITAL SIGNS Temp: [97.4 [...] interviewed and examined this patient with the FIELD TRAFFIC INVESTIGATOR. I reviewed the history and exam detailed [...] OT Speech Language Pathology Attempt Note: 11/12/2024 FULL SERVICE SUPERVISOR Therapy Completed: Attempted Attempted Reason: Patient is unavailable due to test/procedure No charge. Thank you, ULISES Leija Time In: 142 Time Out: 142 Total Visit Time: 0 minutes Total Treatment Time (skilled, billable minutes): 0 minutes Placement Plan Expected Discharge Date: 11/15/2024 Referred Level of Care: 11/15/2024 Barriers: Pending Peg Tube placement today Current Referrals and Status [facility] - Available CM called and spoke with patient's daughter and confirmed SNF choice. Preferred SNF, [facility], declined due to care needs - Daughter chose [facility] - CM reached out to SNF via AIDIN and vm requesting they initiate precert process today. CM pending a response. PAM Fleming, SUPERVISOR SOLDER MAKING Program Admin Available by Secure Chat Neurovascular Stroke Service Intracerebral Hemorrhage Note IDENTIFYING INFORMATION Behzad Hay MR# [id number] 11/12/2024 HISTORY OF PRESENT ILLNESS Behzad Hay is a 84 y.o. female with a history of A fib on eliquis (Last dose 77 AM), HTN, HLD who presented from [place] with L thalamic ICH. LKW 2100 10/17. [...] for afib RVR 10/21: improved exam today, FULL SERVICE SUPERVISOR re-eval pending, lisinopril increased to home dose [...] off sitter, plan to follow up with FULL SERVICE SUPERVISOR tomorrow for dysphagia 11/08: FEES planned, will [...] discharged to pending medical readiness David Sutton APRN-PROPERTY ADJUSTER 11/12/2024 11:03 AM VITAL SIGNS Temp: [97.5 [...] interviewed and examined this patient with the FIELD TRAFFIC INVESTIGATOR. I reviewed the history and exam detailed [...] placement, Insurance Pre-certification Current Referrals and Status [facility] - Available [facility] - Available Peg Tube placement planned for Sunday 11/12. CM uploaded current clinical and therapy notes to SNF referral. CM will continue to follow and assist patient through discharge planning process. PAM Fleming, SUPERVISOR SOLDER MAKING Program Admin Available by Secure Chat Acute Physical Therapy Treatment Prior Gross Functional Mobility: needs assist Current AM-PAC score(s): CURRENT AM-PAC Mobility Raw Score: 6 Based on the above AM-PAC score(s) and PT clinical judgment, patient is a good candidate for [facility] to [facility] Barriers to discharge home: Patient needs [...] minues Mobility Assessment/Intervention: Supine to Sit Mobility [place] Level: Supine->Sit: dependent (less than 25% patient effort) Physical Assist: Supine->Sit: 2 person assist Bed Features/Set-up: Supine->Sit: Head of bed elevated, Use of bed rail Skilled Rationale: Positioning, Sequencing, Hand placement, Verbal cues Skilled Intervention/Details: Supine->Sit: pt lethargic this date Sit to Supine Mobility [place] Level: Sit->Supine: dependent (less than 25% patient effort) Physical Assist: Sit->Supine: 2 person assist Bed Features/Set-up: Sit->Supine: Flat Transfer Assessment/Intervention: Gait/Functional Mobility Assessment/Intervention: Stairs Assessment/Intervention: Outcome Score(s): CURRENT [facility] Basic Mobility Inpatient Short Form Turning over in bed: 1 - Total Assistance Moving from lying on back to sittin - Total Assistance Moving to and from bed to chair: 1 - Total Assistance Sitting/standing from chair: 1 - Total Assistance Walk in hospital room: 1 - Total Assistance Climbing 3-5 steps with a railin - Total Assistance CURRENT [facility] Mobility Raw Score: 6 CURRENT [facility] Mobility Functional Limitation: 100.00% Impaired in Basic [...] Hemorrhage Note IDENTIFYING INFORMATION Behzad Hay MR# [id number] 11/11/2024 HISTORY OF PRESENT ILLNESS Behzad Hay is a 84 y.o. female with a history of A fib on eliquis (Last dose 10/18 AM), HTN, HLD who presented from [place] with L thalamic ICH. LKW 2100 10/17. [...] for frequent neuro check 10/19: Transfer to CT service 10/20: drowsy today after receiving Seroquel overnight, repeat CTH stable, increase metoprolol for afib RVR 10/21: improved exam today, FULL SERVICE SUPERVISOR re-eval pending, lisinopril increased to home dose [...] off sitter, plan to follow up with FULL SERVICE SUPERVISOR tomorrow for dysphagia 11/08: FEES planned, will [...] simple commands, R hemiparesis CN II visual nsyder full to confrontation without visual extinction CN [...] pressure goal: normotension Hemorrhagic Stroke Core Measures -[facility] on admission 16 -Patient has [...] discharged to pending medical readiness Ailyn Mullen, COOPERATIVE EDUCATION COORDINATOR-[facility] 11/11/2024 11:25 AM VITAL SIGNS Temp: [...] interviewed and examined this patient with the FIELD TRAFFIC INVESTIGATOR. I reviewed the history and exam detailed [...] OT clinical judgment, discharge destination recommendation is: [facility] Barriers to discharge home: Patient needs [...] and Edema: Mobility Assessment/Intervention: Scooting Bridging Mobility [place] Level: Scooting/Bridging: dependent (less than 25% patient effort) Physical Assist: Scooting/Bridgin person assist Bed Features/Set-up: Scooting/Bridging: Flat Skilled Rationale: Verbal cues Skilled Intervention/Details: Scooting/Bridging: boost in bed Supine to Sit Mobility [place] Level: Supine->Sit: dependent (less than 25% patient effort) Physical Assist: Supine->Sit: 2 person assist Bed Features/Set-up: Supine->Sit: Head of bed elevated Skilled Rationale: Verbal cues Skilled Intervention/Details: Supine->Sit: no initiation Sit to Supine Mobility [place] Level: Sit->Supine: dependent (less than 25% patient [...] Summary. Speech Language Pathology Attempt Note 11/10/2024 FULL SERVICE SUPERVISOR Therapy Completed: (P) Yes Attempted to see [...] Hemorrhage Note IDENTIFYING INFORMATION Behzad Hay MR# [id number] 11/10/2024 HISTORY OF PRESENT ILLNESS Behzad Hay is a 84 y.o. female with a history of A fib on eliquis (Last dose 10/18 AM), HTN, HLD who presented from [place] with L thalamic ICH. LKW 2100 10/17. [...] for frequent neuro check 10/19: Transfer to CT service 10/20: drowsy today after receiving Seroquel overnight, repeat CTH stable, increase metoprolol for afib RVR 10/21: improved exam today, FULL SERVICE SUPERVISOR re-eval pending, lisinopril increased to home dose [...] off sitter, plan to follow up with FULL SERVICE SUPERVISOR tomorrow for dysphagia 11/08: FEES planned, will [...] interviewed and examined this patient with the FIELD TRAFFIC INVESTIGATOR. I reviewed the history and exam detailed [...] 7/7 AM), HTN, HLD who presents from [place] with L thalamic ICH with hosp course [...] 7 AM), HTN, HLD who presents from [place] with L thalamic ICH with hosp course c/b Afib-RVR. UA concerning for UTI, started on Ceftriaxone. We are re-consulted for PEG tube placement. IMPRESSION PEG Placement. Dysphagia Malnutrition. Need for mcfp feeding. Assessment/Planning - No obvious contraindication for [...] gm if patient is >80 kg) as "front office specialist to the procedure". If pt has PCN or cephalosporin allergy, have ordered Clindamycin (900 mg IVPB) and Gentamycin (5 mg/kg of ABW) as "front office specialist to procedure." - If applicable, please ensure [...] Division of Gastroenterology, Hepatology & Nutrition [facility] Epic Chat with questions or Page [phone] For urgent/stat calls or consults 5pm to 7am or all day on the weekend, please page the on-call GI fellow on QGenda. [facility]--> Internal Medicine--> Gastroenterology, Hepatology, & Nutrition--> 1st Call Fel [facility] OR STAT/NEW GI Cons Wknd Day For follow up questions regarding this patient 7am to 5pm, contact the IBD consults fellow or VIDYA on QLuckyPenniea. [facility]--> Internal Medicine--> Gastroenterology, Hepatology, & [...] is a good candidate for discharge to [facility] Barriers to discharge home: Patient needs [...] break Mobility Assessment/Intervention: Supine to Sit Mobility [place] Level: Supine->Sit: maximum assist (25% patient effort) Bed Features/Set-up: Supine->Sit: Head of bed elevated, Use of bed rail Skilled Rationale: Positioning, Sequencing, Hand placement, Verbal cues Skilled Intervention/Details: Supine->Sit: increased time and step by step cues for sequencing Sit to Supine Mobility [place] Level: Sit->Supine: maximum assist (25% patient effort) Physical Assist: Sit->Supine: 2 person assist Bed Features/Set-up: Sit->Supine: Flat Transfer Assessment/Intervention: Sit to Stand Transfer [place] Level: Sit->Stand: maximum assist (25% patient effort) Physical Assist: Sit->Stand: 2 person assist Assistive Device: Sit->Stand: gait belt, hand held assist Skilled Rationale: Positioning, Sequencing, Verbal cues, Hand placement Skilled Intervention/Details: Sit->Stand: pt educated in sit to stand transfers with max assist of 2, arm and arm assist, cues for full trunk extension Gait/Functional Mobility Assessment/Intervention: Stairs Assessment/Intervention: Outcome Score(s): CURRENT [facility] Basic Mobility Inpatient Short Form Turning over in bed: 2 - A Lot of Assistance Moving from lying on back to sittin - A Lot of Assistance Moving to and from bed to chair: 1 - Total Assistance Sitting/standing from chair: 1 - Total Assistance Walk in hospital room: 1 - Total Assistance Climbing 3-5 steps with a railin - Total Assistance CURRENT [facility] Mobility Raw Score: 8 CURRENT [facility] Mobility Functional Limitation: 86.62% Impaired in Basic [...] OT clinical judgment, discharge destination recommendation is: [facility] Barriers to discharge home: Patient needs [...] and Edema: Mobility Assessment/Intervention: Scooting Bridging Mobility [place] Level: Scooting/Bridging: dependent (less than 25% patient effort) Physical Assist: Scooting/Bridgin person assist Bed Features/Set-up: Scooting/Bridging: Flat Skilled Rationale: Verbal cues Skilled Intervention/Details: Scooting/Bridging: boost in bed Supine to Sit Mobility [place] Level: Supine->Sit: maximum assist (25% patient effort) Bed Features/Set-up: Supine->Sit: Head of bed elevated Skilled Rationale: Verbal cues, Tactile cues Skilled Intervention/Details: Supine->Sit: step by step cues and initiation cues, increased time Sit to Supine Mobility [place] Level: Sit->Supine: maximum assist (25% patient effort) Physical Assist: Sit->Supine: 2 person assist Bed Features/Set-up: Sit->Supine: Flat Skilled Rationale: Verbal cues Transfer Assessment/Intervention: Sit to Stand Transfer [place] Level: Sit->Stand: maximum assist (25% patient effort) [...] on the below outcome measures/assessment score(s) and FULL SERVICE SUPERVISOR clinical judgment, discharge destination recommendation is: [facility] Barriers to discharge home: Need for 1:1 assist to ensure safety with all PO intake, Inability to communicate basic wants/needs Supporting factors for discharge setting: Impaired speech and language skills limiting ability to communicate basic wants/needs, Impaired swallow function limiting nutritional status and safety with oral intake Acute FULL SERVICE SUPERVISOR Outcomes Tracking Communicate basic wants and needs?: [...] room. Pt unable to identify objects on [employer] communication board this date. Ongoing FULL SERVICE SUPERVISOR services recommended. Subjective information: Pt asleep upon [...] O2 Device: room air (11/09 899) Acute FULL SERVICE SUPERVISOR Goals Plan of Care by Shantal Mclean, FULL SERVICE SUPERVISOR at 11/09/2024 9:48 AM Version 1 of 1 Problem: FULL SERVICE SUPERVISOR - Language Goal: Command Following - Patient [...] communication. Outcome: Ongoing Tx: When presented with [employer] communication board; pt able to identify 0/5 [...] with increased wet vocal quality the date. FULL SERVICE SUPERVISOR provided thorough oral care and pt readily [...] dysphagia/lang tx Speech Language Pathologist: Shantal Mclean FULL SERVICE SUPERVISOR Time In: 947 Time Out: 1013 Total Visit Time: 25 minutes Total Treatment Time (skilled, billable minutes): 25 minutes Non-billable assistance during session: n/a Assisted by during session: n/a PPE used during patient interaction: gloves Patient location/status at end of session: bed with head of bed elevated Patient alarms at end of session: none altered Needs in reach. FULL SERVICE SUPERVISOR Evaluation and Treatment Time Speech Therapy - Individual 58286: 13 Swallowing Dysfunction Treatment 21690: 12 Upon discontinuation of Acute Care Speech [...] the past week. Pt last seen by FULL SERVICE SUPERVISOR this morning with continued recommendations for NPO. [...] Needs: Weight Used: 52.6 kg (CBW) EEN: 9721-8598 kcal/day (25-30 kcal/kg) EPN: 63-79 g/day (1.2-1.5 g/kg) EFN: 1580 mL/day (30 mL/kg) Malnutrition Statement: Does the patient meet criteria for malnutrition: Unable to assess 2/2 mental status *Based on [employer] and [employer] Indicators to Diagnose Malnutrition (AAIM) criteria (2012) Fadumo Stark MS, RD, LD, [facility] Pager #[phone] Neurovascular Stroke Service Intracerebral Hemorrhage Note IDENTIFYING INFORMATION Behzad Hay MR# [id number] 11/09/2024 HISTORY OF PRESENT ILLNESS Behzad Hay is a 84 y.o. female with a history of A fib on eliquis (Last dose 10/18 AM), HTN, HLD who presented from [place] with L thalamic ICH. LKW 2100 10/17. [...] for afib RVR 10/21: improved exam today, FULL SERVICE SUPERVISOR re-eval pending, lisinopril increased to home dose [...] off sitter, plan to follow up with FULL SERVICE SUPERVISOR tomorrow for dysphagia 11/08: FEES planned, will [...] mL Per NG tube Q4H Reta Galarza APRN-PROPERTY ADJUSTER 11/09/2024 12:55 PM VITAL SIGNS Temp: [98.3 [...] interviewed and examined this patient with the FIELD TRAFFIC INVESTIGATOR. I reviewed the history and exam detailed [...] on the below outcome measures/assessment score(s) and FULL SERVICE SUPERVISOR clinical judgment, discharge destination recommendation is: [facility] Barriers to discharge home: Need for 1:1 assist to ensure safety with all PO intake, Inability to communicate basic wants/needs Supporting factors for discharge setting: Impaired speech and language skills limiting ability to communicate basic wants/needs, Impaired swallow function limiting nutritional status and safety with oral intake Acute FULL SERVICE SUPERVISOR Outcomes Tracking Communicate basic wants and needs?: [...] Sat (%): 96 % (11/08 804) Acute FULL SERVICE SUPERVISOR Goals Plan of Care by Shantal Mclean, FULL SERVICE SUPERVISOR at 11/08/2024 4:23 PM Version 1 of 1 Problem: FULL SERVICE SUPERVISOR - Language Goal: Command Following - Patient [...] session: 11/08: good; FEES Speech Language Pathologist: LUISES Leos Time In: 1623 Time Out: 1640 Total Visit Time: 17 minutes Total Treatment Time (skilled, billable minutes): 17 minutes Non-billable assistance during session: n/a Assisted by during session: patient's daughter PPE used during patient interaction: gloves Patient location/status at end of session: bed with head of bed elevated Patient alarms at end of session: none altered Needs in reach. FULL SERVICE SUPERVISOR Evaluation and Treatment Time Swallowing Dysfunction Treatment 11310: 17 Upon discontinuation of Acute Care Speech Therapy Services or patient discharge from the hospital this note represents the current Speech Therapy Discharge Summary Neurovascular Stroke Service Intracerebral Hemorrhage Note IDENTIFYING INFORMATION Behzad Hay MR# [id number] 11/07/2024 HISTORY OF PRESENT ILLNESS Behzad Hay is a 84 y.o. female with a history of A fib on eliquis (Last dose 10/18 AM), HTN, HLD who presented from [place] with L thalamic ICH. LKW 2100 10/17. [...] for frequent neuro check 10/19: Transfer to CT service 10/20: drowsy today after receiving Seroquel overnight, repeat CTH stable, increase metoprolol for afib RVR 10/21: improved exam today, FULL SERVICE SUPERVISOR re-eval pending, lisinopril increased to home dose [...] off sitter, plan to follow up with FULL SERVICE SUPERVISOR tomorrow for dysphagia PHYSICAL EXAM Gen: alert, [...] Intracerebral Hemorrhage Score Intracerebral Hemorrhage (ICH) Scale [place] Coma Scale Points: 1-->GCS 5-12 Age>/=80: 1-->yes [...] discharged to pending medical readiness Ailyn Mullen, EAN-PROPERTY ADJUSTER 11/07/2024 11:43 AM VITAL SIGNS Temp: [97.8 [...] Hemorrhage Note IDENTIFYING INFORMATION Behzad Hay MR# [id number] 11/06/2024 HISTORY OF PRESENT ILLNESS Behzad Hay is a 84 y.o. female with a history of A fib on eliquis (Last dose 10/18 AM), HTN, HLD who presented from [place] with L thalamic ICH. LKW 2100 10/17. Pt reportedly awoke at 0600 on 10/18 with some R sided weakness and was found by her home health aide at 0900 slumped against the wall with R sided weakness, R facial droop and dysarthria. NIHSS on arrival to [facility] ED 16 (2, 1 commands, 1 L [...] for frequent neuro check 10/19: Transfer to CT service 10/20: drowsy today after receiving Seroquel overnight, repeat CTH stable, increase metoprolol for afib RVR 10/21: improved exam today, FULL SERVICE SUPERVISOR re-eval pending, lisinopril increased to home dose [...] - Insurance pre-certification Current Referrals and Status [facility] - Available (pending Peg Tube) [facility] - Under Review [facility] - Under Review 1st choice would be [facility] and 2nd choice [facility] uploaded current clinical for SNFs to follow. PAM Fleming, SUPERVISOR SOLDER MAKING Program Admin Available by Secure Chat Neurovascular Stroke Service Intracerebral Hemorrhage Note IDENTIFYING INFORMATION Behzad Hay MR# [id number] 11/05/2024 HISTORY OF PRESENT ILLNESS Behzad Hay is a 84 y.o. female with a history of A fib on eliquis (Last dose 10/18 AM), HTN, HLD who presented from [place] with L thalamic ICH. LKW 2100 10/17. [...] for afib RVR 10/21: improved exam today, FULL SERVICE SUPERVISOR re-eval pending, lisinopril increased to home dose [...] Intracerebral Hemorrhage Score Intracerebral Hemorrhage (ICH) Scale [place] Coma Scale Points: 1-->GCS 5-12 Age>/=80: 1-->yes [...] discharged to pending medical readiness Ailyn Mullen, COOPERATIVE EDUCATION COORDINATOR-PROPERTY ADJUSTER 11/05/2024 3:16 PM VITAL SIGNS Temp: [97.6 [...] placement. Ousmane Cantu D.O. Vascular Neurology [facility] Acute Physical Therapy Treatment Prior Gross Functional Mobility: needs assist Current AM-PAC score(s): CURRENT AM-PAC Mobility Raw Score: 7 Based on the above AM-PAC score(s) and PT clinical judgment, patient is a good candidate for discharge to [facility] Barriers to discharge home: Patient needs [...] extension Mobility Assessment/Intervention: Supine to Sit Mobility [place] Level: Supine->Sit: dependent (less than 25% patient effort) Physical Assist: Supine->Sit: 2 person assist Bed Features/Set-up: Supine->Sit: Head of bed elevated, Use of bed rail Skilled Rationale: Positioning, Sequencing, Hand placement, Verbal cues Sit to Supine Mobility [place] Level: Sit->Supine: dependent (less than 25% patient effort) Physical Assist: Sit->Supine: 2 person assist Transfer Assessment/Intervention: Sit to Stand Transfer [place] Level: Sit->Stand: dependent (less than 25% patient effort) Physical Assist: Sit->Stand: 2 person assist Assistive Device: Sit->Stand: gait belt, hand held assist Skilled Rationale: Positioning, Sequencing, Hand placement, Verbal cues Skilled Intervention/Details: Sit->Stand: pt educated in sit to stand transfer x 2 with dependent assist of 2 and arm and arm assist Gait/Functional Mobility Assessment/Intervention: Stairs Assessment/Intervention: Outcome Score(s): CURRENT [facility] Basic Mobility Inpatient Short Form Turning over in bed: 2 - A Lot of Assistance Moving from lying on back to sittin - Total Assistance Moving to and from bed to chair: 1 - Total Assistance Sitting/standing from chair: 1 - Total Assistance Walk in hospital room: 1 - Total Assistance Climbing 3-5 steps with a railin - Total Assistance CURRENT [facility] Mobility Raw Score: 7 CURRENT [facility] Mobility Functional Limitation: 92.36% Impaired in Basic [...] OT clinical judgment, discharge destination recommendation is: [facility] Barriers to discharge home: Patient needs [...] placement Mobility Assessment/Intervention: Supine to Sit Mobility [place] Level: Supine->Sit: dependent (less than 25% patient effort) Physical Assist: Supine->Sit: 2 person assist Bed Features/Set-up: Supine->Sit: Head of bed elevated Skilled Rationale: Hand placement, Verbal cues, Sequencing, Positioning Transfer Assessment/Intervention: Sit to Stand Transfer [place] Level: Sit->Stand: dependent (less than 25% patient effort) Physical Assist: Sit->Stand: 2 person assist Assistive Device: Sit->Stand: gait belt, hand held assist Skilled Rationale: Verbal cues, Hand placement, Sequencing, Positioning Skilled Intervention/Details: Sit->Stand: X 3 trials this session and limited effort by pt CURRENT [facility] Daily Activity Inpatient Short Form Putting on/Taking Off Lower Body Clothin - Total Assistance Bathin - A Lot of Assistance Toiletin - Total Assistance Putting on/Taking Off Upper Body Clothin - A Lot of Assistance Groomin - A Lot of Assistance Eatin - Total Assistance CURRENT [facility] Activity Raw Score: 9 CURRENT [facility] Activity Functional Limitation/Modifier: 79.59% Currently Impaired in [...] Needs review Plan for next session: mayra [facility] OT Goals Plan of Care [...] of session: bed alarm, RN aware, safety resident care director present (RN and HIGH SPEED WARPER TENDER at bedside) Needs in reach. Time In: 910 Time Out: 933 Total Visit Time: 23 minutes Total Treatment Time (skilled, billable minutes): 23 minutes Upon discontinuation of Acute Care Occupational Therapy Services or patient discharge from the hospital this note represents the current Occupational Therapy Discharge Summary. Neurovascular Stroke Service Intracerebral Hemorrhage Note IDENTIFYING INFORMATION Behzad Hay MR# [id number] 11/04/2024 HISTORY OF PRESENT ILLNESS Behzad Hay is a 84 y.o. female with a history of A fib on eliquis (Last dose 10/18 AM), HTN, HLD who presented from [place] with L thalamic ICH. LKW 2100 10/17. [...] for afib RVR 10/21: improved exam today, FULL SERVICE SUPERVISOR re-eval pending, lisinopril increased to home dose [...] Intracerebral Hemorrhage Score Intracerebral Hemorrhage (ICH) Scale [place] Coma Scale Points: 1-->GCS 5-12 Age>/=80: 1-->yes [...] discharged to pending medical readiness Reta Galarza, EAN-PROPERTY ADJUSTER 11/04/2024 3:59 PM VITAL SIGNS Temp: [97.6 [...] placement. Ousmane Cantu D.O. Vascular Neurology [facility] Acute Care Speech Language Pathology Treatment Diet [...] on the below outcome measures/assessment score(s), and FULL SERVICE SUPERVISOR clinical judgment, discharge destination recommendation is: [facility] Barriers to discharge home: Inability to communicate basic wants/needs, Need for 1:1 assist to ensure safety with all PO intake Supporting factors for discharge setting: Impaired swallow function limiting nutritional status and safety with oral intake, Impaired speech and language skills limiting ability to communicate basic wants/needs, Impaired cognitive skills limiting independence Acute FULL SERVICE SUPERVISOR Outcomes Tracking Communicate basic wants and needs?: [...] for naming but named 70% accurate. Ongoing FULL SERVICE SUPERVISOR services recommended. Subjective information: Patient alert, resting [...] 98 % O2 Device: room air Acute FULL SERVICE SUPERVISOR Goals Plan of Care by ULISES Lombardo at 11/04/2024 8:10 AM Version 1 of 1 Problem: FULL SERVICE SUPERVISOR - Language Goal: Command Following - Patient [...] expression, Speech comprehension Patient Instruction/Education comments: Reviewed FULL SERVICE SUPERVISOR purpose and POC.Discussed ongoing NPO status and need for study in the future Plan for next session: 11/04- good, ongoing speech/language tx. Ongoing bolus trials to dertmine readiness for FEES FULL SERVICE SUPERVISOR Outcomes: FOIS 1 Speech Language Pathologist: ULISES Lombardo Time In: 809 Time Out: 827 Total Visit Time: 18 minutes Total Treatment Time (skilled, billable minutes): 18 minutes Non-billable assistance during session: n/a Assisted by during session: SCA PPE used during patient interaction: gloves Patient location/status at end of session: bed with head of bed elevated Patient alarms at end of session: mitts, safety resident care director present Needs in reach. FULL SERVICE SUPERVISOR Evaluation and Treatment Time Speech Therapy - Individual 73004: 10 Swallowing Dysfunction Treatment 87001: 8 Upon discontinuation of Acute Care Speech Therapy Services or patient discharge from the hospital this note represents the current Speech Therapy Discharge Summary Neurovascular Stroke Service Intracerebral Hemorrhage Note IDENTIFYING INFORMATION Behzad Hay MR# [id number] 11/03/2024 HISTORY OF PRESENT ILLNESS Behzad Hay is a 84 y.o. female with a history of A fib on eliquis (Last dose 10/18 AM), HTN, HLD who presented from [place] with L thalamic ICH. LKW 2100 10/17. [...] for frequent neuro check 10/19: Transfer to CT service 10/20: drowsy today after receiving Seroquel overnight, repeat CTH stable, increase metoprolol for afib RVR 10/21: improved exam today, FULL SERVICE SUPERVISOR re-eval pending, lisinopril increased to home dose [...] discharged to pending medical readiness Reta Galarza APRN-PROPERTY ADJUSTER 11/03/2024 9:43 AM VITAL SIGNS Temp: [97.5 [...] placement. Ousmane Cantu D.O. Vascular Neurology [facility] Acute Care Speech Language Pathology Treatment Diet [...] on the below outcome measures/assessment score(s), and FULL SERVICE SUPERVISOR clinical judgment, discharge destination recommendation is: [facility] Barriers to discharge home: Inability to communicate basic wants/needs Supporting factors for discharge setting: Impaired swallow function limiting nutritional status and safety with oral intake, Impaired speech and language skills limiting ability to communicate basic wants/needs Acute FULL SERVICE SUPERVISOR Outcomes Tracking Communicate basic wants and needs?: [...] small improvements in naming this date. Ongoing FULL SERVICE SUPERVISOR services recommended. Subjective information: Patient alert, resting [...] 100 % O2 Device: room air Acute FULL SERVICE SUPERVISOR Goals Plan of Care by Aida Martinez FULL SERVICE SUPERVISOR at 11/03/2024 8:13 AM Version 1 of 1 Problem: FULL SERVICE SUPERVISOR - Language Goal: Command Following - Patient [...] expression, Speech comprehension Patient Instruction/Education comments: Reviewed FULL SERVICE SUPERVISOR purpose and POC. Plan for next session: 11/03: good, ongoing bolus challenge swallow and speech/language tx FULL SERVICE SUPERVISOR Outcomes: FOIS 1 Speech Language Pathologist: ULISES Lombardo Time In: 812 Time Out: 828 Total Visit Time: 16 minutes Total Treatment Time (skilled, billable minutes): 16 minutes Non-billable assistance during session: n/a Assisted by during session: SCA PPE used during patient interaction: gloves Patient location/status at end of session: bed with head of bed elevated Patient alarms at end of session: mitts, safety resident care director present Needs in reach. FULL SERVICE SUPERVISOR Evaluation and Treatment Time Speech Therapy - Individual 33874: 8 Swallowing Dysfunction Treatment 83293: 8 Upon discontinuation of Acute Care Speech [...] 10/18 AM), HTN, HLD who presented from [place] with L thalamic ICH. LKW 2100 10/17. [...] PEG- has been unable to engage with FULL SERVICE SUPERVISOR. Answers no to all questions asked (I.e., [...] HGBA1C 5.4 10/18/2024 GI: Last bm: 11/02 ([place] Stool Scale Type 7); # bm past [...] Needs: Weight Used: 52 kg (CBW) EEN: 7440-0369 kcal/day (25-30 kcal/kg) EPN: 62-78 g/day (1.2-1.5 g/kg) EFN: 1560 mL/day (30 mL/kg) or per primary team Malnutrition Statement: Does the patient meet criteria for malnutrition: Unable to assess *Based on [employer] and [employer] Indicators to Diagnose Malnutrition (AAIM) criteria (2012) Fadumo Stark MS, RD, LD, [facility] Pager #[phone] Speech Language Pathology Attempt Note 11/02/2024 FULL SERVICE SUPERVISOR Therapy Completed: (P) Attempted Attempted to see [...] Hemorrhage Note IDENTIFYING INFORMATION Behzad Hay MR# [id number] 11/02/2024 HISTORY OF PRESENT ILLNESS Behzad Hay is a 84 y.o. female with a history of A fib on eliquis (Last dose 10/18 AM), HTN, HLD who presented from [place] with L thalamic ICH. LKW 2100 10/17. [...] for afib RVR 10/21: improved exam today, FULL SERVICE SUPERVISOR re-eval pending, lisinopril increased to home dose [...] GI, plan for PEG next week, continue FULL SERVICE SUPERVISOR eval -11/02: GI deferring PEG until agitation [...] discharged to pending medical readiness David Sutton, COOPERATIVE EDUCATION COORDINATOR-PROPERTY ADJUSTER 11/02/2024 7:10 AM VITAL SIGNS Temp: [97.4 [...] plan. Ousmane Cantu D.O. Vascular Neurology [facility] Placement Plan Expected Discharge Date: TBD Referred Level of Care: SNF Barriers: Peg Tube placement, Insurance pre-certification Current Referrals and Status [facility] - Under Review 2. [facility] - Available (pending Peg Tube placement) [facility] - Under Review Pending PEG Tube placement. Continues to have sitter. CM will continue to follow and assist with discharge planning. Addendum:4:03 PM CM met with patient's daughter at bedside and reviewed current SNF list - 1st choice would be [facility] and 2nd choice [facility]. CM did explain that [facility] had offically denied. PAM Fleming, [place] Program Admin Available by Secure Chat Speech Language Pathology Attempt Note 11/01/2024 FULL SERVICE SUPERVISOR Therapy Completed: Attempted; pt asleep upon entry and unable to rouse despite max verbal/tactile cues. ULISES Leos Time In: 952 Time Out: 955 Total Visit Time: 3 minutes Total Treatment Time (skilled, billable minutes): 0 minutes Neurovascular Stroke Service Intracerebral Hemorrhage Note IDENTIFYING INFORMATION Behzad Hay MR# [id number] 11/01/2024 HISTORY OF PRESENT ILLNESS Behzad Hay is a 84 y.o. female with a history of A fib on eliquis (Last dose 10/18 AM), HTN, HLD who presented from [place] with L thalamic ICH. LKW 2100 10/17. [...] for frequent neuro check 10/19: Transfer to CT service 10/20: drowsy today after receiving Seroquel overnight, repeat CTH stable, increase metoprolol for afib RVR 10/21: improved exam today, FULL SERVICE SUPERVISOR re-eval pending, lisinopril increased to home dose [...] GI, plan for PEG next week, continue FULL SERVICE SUPERVISOR eval Elevated LFTs (POA) - elevated on [...] discharged to pending medical readiness David Sutton APRN-PROPERTY ADJUSTER 11/01/2024 3:08 PM VITAL SIGNS Temp: [97.4 [...] outpatient. Ousmane Cantu D.O. Vascular Neurology [facility] Acute Physical Therapy Treatment Prior Gross Functional Mobility: needs assist Current AM-PAC score(s): CURRENT AM-PAC Mobility Raw Score: 6 Based on the above AM-PAC score(s) and PT clinical judgment, patient is a good candidate for discharge to [facility] Barriers to discharge home: Patient needs [...] knees Mobility Assessment/Intervention: Supine to Sit Mobility [place] Level: Supine->Sit: maximum assist (25% patient effort) Physical Assist: Supine->Sit: 2 person assist Bed Features/Set-up: Supine->Sit: Head of bed elevated Skilled Rationale: Positioning, Hand placement, Verbal cues, Sequencing Skilled Intervention/Details: Supine->Sit: pt assisted with movement of LEs towar EOB Transfer Assessment/Intervention: Sit to Stand Transfer [place] Level: Sit->Stand: dependent (less than 25% patient effort) Physical Assist: Sit->Stand: 2 person assist Assistive Device: Sit->Stand: gait belt, hand held assist Skilled Rationale: Positioning, Sequencing, Hand placement, Verbal cues Skilled Intervention/Details: Sit->Stand: x1 from EOB Bed-Chair Transfer [place] Level: Bed<->Chair: dependent (less than 25% patient effort) Physical Assist: Bed<->Chair: 2 person assist Assistive Device: Bed<->Chair: gait belt, hand held assist Skilled Rationale: Positioning, Hand placement, Verbal cues, Sequencing Skilled Intervention/Details: Bed<->Chair: modified stand pivot transfers Gait/Functional Mobility Assessment/Intervention: Stairs Assessment/Intervention: Outcome Score(s): CURRENT [facility] Basic Mobility Inpatient Short Form Turning over in bed: 1 - Total Assistance Moving from lying on back to sittin - Total Assistance Moving to and from bed to chair: 1 - Total Assistance Sitting/standing from chair: 1 - Total Assistance Walk in hospital room: 1 - Total Assistance Climbing 3-5 steps with a railin - Total Assistance CURRENT [facility] Mobility Raw Score: 6 CURRENT [facility] Mobility Functional Limitation: 100.00% Impaired in Basic [...] Readiness, Insurance Pre-cert Current Referrals and Status [facility] SNF - Viewed [facility] - Under Review [facility] - Under Review CM uploaded currently clinical to [facility] - patient currently has no accepting SNFs due to pending Nutritional Plan. GI Consulted. CM extended timer until Friday. PAM Fleming, SUPERVISOR SOLDER MAKING Program Admin Available by Secure Chat Acute Care Speech [...] on the below outcome measures/assessment score(s), and FULL SERVICE SUPERVISOR clinical judgment, discharge destination recommendation is: [facility] Barriers to discharge home: Inability to communicate basic wants/needs, Need for 1:1 assist to ensure safety with all PO intake Supporting factors for discharge setting: Impaired speech and language skills limiting ability to communicate basic wants/needs, Impaired swallow function limiting nutritional status and safety with oral intake Acute FULL SERVICE SUPERVISOR Outcomes Tracking Communicate basic wants and needs?: [...] and to reduce risk of disuse atrophy. FULL SERVICE SUPERVISOR will continue to follow for dysphagia intervention. 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 The above continues to impact ability to communicate basic wants/needs. Continues to benefit from phonemic cueing, modeling, and redirections for improved accuracy. Lethargy/fatigue appearing to impact participation in structured yes/no questions this visit. FULL SERVICE SUPERVISOR will continue to follow to address the [...] Precautions/Restrictions: fall Respiratory Status: Room Air Acute FULL SERVICE SUPERVISOR Goals Plan of Care by ULISES Leija at 10/29/2024 11:16 AM Version 1 of 1 Problem: FULL SERVICE SUPERVISOR - Language Goal: Command Following - Patient [...] ongoing bolus challenge swallows and speech/language tx FULL SERVICE SUPERVISOR Outcomes: FOIS 1 Speech Language Pathologist: ULISES [...] end of session: none altered, mitts, safety resident care director present Needs in reach. FULL SERVICE SUPERVISOR Evaluation and Treatment Time Speech Therapy - Individual 05608: 9 Swallowing Dysfunction Treatment 97849: 10 Upon discontinuation of Acute Care Speech Therapy Services or patient discharge from the hospital this note represents the current Speech Therapy Discharge Summary Acute Occupational Therapy Treatment Prior Gross Functional Mobility: needs assist Current AM-PAC score(s): CURRENT AM-PAC Activity Raw Score: 9 Based on the above AM-PAC score(s), and OT clinical judgment, discharge destination recommendation is: [facility] Barriers to discharge home: Patient needs [...] placement Mobility Assessment/Intervention: Supine to Sit Mobility [place] Level: Supine->Sit: maximum assist (25% patient effort) Physical Assist: Supine->Sit: 2 person assist Bed Features/Set-up: Supine->Sit: Head of bed elevated Skilled Rationale: Verbal cues, Tactile cues, Hand placement Skilled Intervention/Details: Supine->Sit: able to initaite transfer Transfer Assessment/Intervention: Sit to Stand Transfer [place] Level: Sit->Stand: dependent (less than 25% patient effort) Physical Assist: Sit->Stand: 2 person assist Assistive Device: Sit->Stand: gait belt Skilled Rationale: Verbal cues, Tactile cues, Visual cues Skilled Intervention/Details: Sit->Stand: max cues for upright posture and hand placement Bed-Chair Transfer [place] Level: Bed<->Chair: dependent (less than 25% patient effort) Physical Assist: Bed<->Chair: 2 person assist Assistive Device: Bed<->Chair: gait belt Skilled Rationale: Verbal cues, Tactile cues, Visual cues, Hand placement CURRENT [facility] Daily Activity Inpatient Short Form Putting on/Taking Off Lower Body Clothin - Total Assistance Bathin - A Lot of Assistance Toiletin - Total Assistance Putting on/Taking Off Upper Body Clothin - A Lot of Assistance Groomin - A Lot of Assistance Eatin - Total Assistance CURRENT [facility] Activity Raw Score: 9 CURRENT [facility] Activity Functional Limitation/Modifier: 79.59% Currently Impaired in [...] is a good candidate for discharge to [facility] Barriers to discharge home: Patient needs [...] knees Mobility Assessment/Intervention: Supine to Sit Mobility [place] Level: Supine->Sit: maximum assist (25% patient effort) Physical Assist: Supine->Sit: 2 person assist Bed Features/Set-up: Supine->Sit: Head of bed elevated, Use of bed rail Skilled Rationale: Positioning, Sequencing, Hand placement, Verbal cues Skilled Intervention/Details: Supine->Sit: minimal initiation Transfer Assessment/Intervention: Sit to Stand Transfer [place] Level: Sit->Stand: maximum assist (25% patient effort) Physical Assist: Sit->Stand: 2 person assist Assistive Device: Sit->Stand: gait belt, hand held assist Skilled Rationale: Positioning, Sequencing, Hand placement, Tactile cues Skilled Intervention/Details: Sit->Stand: Pt educated in sit to stand transfers x 3 with blocking of bilateral feet and knees Bed-Chair Transfer [place] Level: Bed<->Chair: dependent (less than 25% patient [...] with a railin - Total Assistance CURRENT [facility] Mobility Raw Score: 6 CURRENT [facility] Mobility Functional Limitation: 100.00% Impaired in Basic [...] Readiness, Insurance pre-certification Current Referrals and Status [facility] SNF - Pending CM uploaded current clinical to [facility] for SNF to review. Patient failed MBS yesterday, being treated for UTI. FULL SERVICE SUPERVISOR continuing to follow. CM continuing to follow. PAM Fleming, SUPERVISOR SOLDER MAKING Program Admin Available by Secure Chat Acute Occupational Therapy Treatment Prior Gross Functional Mobility: needs assist Current AM-PAC score(s): CURRENT AM-PAC Activity Raw Score: 9 Based on the above AM-PAC score(s), and OT clinical judgment, discharge destination recommendation is: [facility] Barriers to discharge home: Patient needs [...] cues Mobility Assessment/Intervention: Supine to Sit Mobility [place] Level: Supine->Sit: maximum assist (25% patient effort) Physical Assist: Supine->Sit: 2 person assist Bed Features/Set-up: Supine->Sit: Head of bed elevated Skilled Rationale: Hand placement, Verbal cues, Tactile cues Skilled Intervention/Details: Supine->Sit: No intiation noted Transfer Assessment/Intervention: Sit to Stand Transfer [place] Level: Sit->Stand: maximum assist (25% patient effort) Physical Assist: Sit->Stand: 2 person assist Assistive Device: Sit->Stand: gait belt Skilled Rationale: Tactile cues, Verbal cues, Hand placement Skilled Intervention/Details: Sit->Stand: arm in arm assist x 3 trials Bed-Chair Transfer [place] Level: Bed<->Chair: maximum assist (25% patient effort) Physical Assist: Bed<->Chair: 2 person assist Assistive Device: Bed<->Chair: gait belt Skilled Rationale: Verbal cues, Tactile cues, Hand placement, Sequencing, Positioning CURRENT -[facility] Daily Activity Inpatient Short Form Putting on/Taking Off Lower Body Clothin - Total Assistance Bathin - A Lot of Assistance Toiletin - Total Assistance Putting on/Taking Off Upper Body Clothin - A Lot of Assistance Groomin - A Lot of Assistance Eatin - Total Assistance CURRENT [facility] Activity Raw Score: 9 CURRENT [facility] Activity Functional Limitation/Modifier: 79.59% Currently Impaired [...] at end of session: chair alarm, safety resident care director present Needs in reach. Time In: 926 [...] since per JUN. Pt last assessed by FULL SERVICE SUPERVISOR yesterday with continued recommendations for NPO. Pt [...] History: No evidence of significant weight loss BOUFFANT CURTAIN MACHINE TENDER. Suspect CBW more accurate than admit wt [...] HGBA1C 5.4 10/18/2024 GI: Last bm: 10/24 ([place] Stool Scale Type 6) Enteral access: post-pyloric small bore feeding tube Skin: Dani Score: 15 Edema- none documented Active Wounds: Wound 10/24/24 0800 Perineum (2) Cognitive Status: confused, Ox1, garbled/slurred speech Estimated Nutrition Needs: Weight Used: 53 kg (CBW) EEN: 0768-1223 kcal/day (25-30 kcal/kg) EPN: 64-80 g/day (1.2-1.5 g/kg) EFN: 1590 mL/day (30 mL/kg) or per primary team Malnutrition Statement: Does the patient meet criteria for malnutrition: Unable to assess *Based on [employer] Academy and [employer] Indicators to Diagnose Malnutrition (AAIM) criteria (2012) Fadumo Stark, , RD, LD, [facility] Pager #[phone] Acute Care Speech Language Pathology Treatment Diet [...] on the below outcome measures/assessment score(s), and FULL SERVICE SUPERVISOR clinical judgment, discharge destination recommendation is: [facility] Barriers to discharge home: Need for 1:1 assist to ensure safety with all PO intake, Inability to communicate basic wants/needs Supporting factors for discharge setting: Impaired swallow function limiting nutritional status and safety with oral intake, Impaired speech and language skills limiting ability to communicate basic wants/needs Acute FULL SERVICE SUPERVISOR Outcomes Tracking Communicate basic wants and needs?: [...] sensate aspiration response per most recent FEES. FULL SERVICE SUPERVISOR explained dysphagia impacting swallow safety and efficiency [...] redirection cues to complete tasks. Ongoing skilled FULL SERVICE SUPERVISOR services indicated to address deficits and maximize [...] 1452) Flow (L/min): 1 (10/25 1012) Acute FULL SERVICE SUPERVISOR Goals Plan of Care by Yola Barboza, FULL SERVICE SUPERVISOR at 10/25/2024 3:17 PM Version 1 of 1 Problem: FULL SERVICE SUPERVISOR - Language Goal: Command Following - Patient [...] Initially 2/7 accurate for naming tasks. With FULL SERVICE SUPERVISOR cues for semantic and phonemic cue. Improved [...] none altered (sitter present) Needs in reach. FULL SERVICE SUPERVISOR Evaluation and Treatment Time Speech Therapy - Individual 36746: 15 Swallowing Dysfunction Treatment 57752: 15 Upon discontinuation of Acute Care Speech Therapy Services or patient discharge from the hospital this note represents the current Speech Therapy Discharge Summary Placement Plan Expected Discharge Date: TBD Referred Level of Care: SNF Barriers: Medical Readiness Current Referrals and Status [facility] SNF - Pending CM uploaded current PT OT and clinical notes to [facility] for SNF to review. Patient with a sitter and video sitter over the weekend. Patient is pending a Dysphagia plan. CM will continue to follow and assist with discharge planning. 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 vendor of RUE Mobility Assessment/Intervention: Supine to Sit Mobility [place] Level: Supine->Sit: maximum assist (25% patient effort) Physical Assist: Supine->Sit: 2 person assist Bed Features/Set-up: Supine->Sit: Head of bed elevated Skilled Rationale: Hand placement, Verbal cues, Sequencing, Positioning Skilled Intervention/Details: Supine->Sit: Minimal initaiton Sit to Supine Mobility [place] Level: Sit->Supine: maximum assist (25% patient effort) Physical Assist: Sit->Supine: 2 person assist Bed Features/Set-up: Sit->Supine: Head of bed elevated Skilled Rationale: Hand placement, Tactile cues, Verbal cues Skilled Intervention/Details: Sit->Supine: Cues for initation Transfer Assessment/Intervention: Sit to Stand Transfer [place] Level: Sit->Stand: maximum assist (25% patient effort) Physical Assist: Sit->Stand: 2 person assist Assistive Device: Sit->Stand: (X 1 trial with arm in arm assist and X 2 trials with larry steady) Skilled Rationale: Verbal cues, Hand placement, Sequencing, Positioning Skilled Intervention/Details: Sit->Stand: X 3 trials throughout. Knee blocking to RLE this session and assist to anterior weight shifting CURRENT [facility] Daily Activity Inpatient Short Form Putting on/Taking Off Lower Body Clothin - Total Assistance Bathin - A Lot of Assistance Toiletin - Total Assistance Putting on/Taking Off Upper Body Clothin - A Lot of Assistance Groomin - A Lot of Assistance Eatin - Total Assistance CURRENT [facility] Activity Raw Score: 9 CURRENT [facility] Activity Functional Limitation/Modifier: 79.59% Currently Impaired in [...] at end of session: bed alarm, safety resident care director present Needs in reach. Time In: 1012 [...] is a good candidate for discharge to Correction Facility Barriers to discharge home: Patient needs [...] provided to assist. Mobility Assessment/Intervention: Rolling/Turning Mobility [place] Level: Rolling/Turning: maximum assist (25% patient effort) Bed Features/Set-up: Rolling/Turning: Flat Skilled Rationale: Hand placement, Verbal cues Skilled Intervention/Details: Rolling/Turning: Rolled left and right for positioning Scooting Bridging Mobility [place] Level: Scooting/Bridging: dependent (less than 25% patient effort) Physical Assist: Scooting/Bridgin person assist Bed Features/Set-up: Scooting/Bridging: Flat Skilled Rationale: Hand placement, Verbal cues Skilled Intervention/Details: Scooting/Bridging: Boost to HOB Supine to Sit Mobility [place] Level: Supine->Sit: maximum assist (25% patient effort) [...] trunk to upright. Sit to Supine Mobility [place] Level: Sit->Supine: maximum assist (25% patient effort) Physical Assist: Sit->Supine: 2 person assist Bed Features/Set-up: Sit->Supine: Head of bed elevated, Use of bed rail Skilled Rationale: Positioning, Sequencing, Hand placement, Verbal cues, Technique of activity Skilled Intervention/Details: Sit->Supine: Pt able to initiate but needed assist at the trunk and bilat LE. Transfer Assessment/Intervention: Sit to Stand Transfer [place] Level: Sit->Stand: maximum assist (25% patient effort) Physical Assist: Sit->Stand: 2 person assist Assistive Device: Sit->Stand: arm in arm Skilled Rationale: Positioning, Hand placement, Verbal cues, Facilitate anterior shift, Full extension to upright positioning/posture, Finding/maintaining midline positioning, Upright gaze/neck extension, Technique of activity Skilled Intervention/Details: Sit->Stand: x1 from EOB, x2 from Larry Stedy Stand to Sit Transfer [place] Level: Stand->Sit: moderate assist (50% patient effort) Physical Assist: Stand->Sit: 2 person assist Assistive Device: Stand->Sit: arm in arm Skilled Rationale: Positioning, Hand placement, Verbal cues, Controlled descent for sitting Skilled Intervention/Details: Stand->Sit: x2 to Larry Stedy, x1 to EOB Bed-Chair Transfer [place] Level: Bed<->Chair: not tested Gait/Functional Mobility Assessment/Intervention: Gait Assessment [place] Level: Gait: unable to assess Stairs Assessment/Intervention: Stairs Assessment [place] Level: Stair Negotiation: unable to assess Outcome Score(s): CURRENT [facility] Basic Mobility Inpatient Short Form Turning over in bed: 1 - Total Assistance Moving from lying on back to sittin - Total Assistance Moving to and from bed to chair: 1 - Total Assistance Sitting/standing from chair: 1 - Total Assistance Walk in hospital room: 1 - Total Assistance Climbing 3-5 steps with a railin - Total Assistance CURRENT [facility] Mobility Raw Score: 6 CURRENT [facility] Mobility Functional Limitation: 100.00% Impaired in Basic [...] (LKN 2100 prior to bed). 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 OSH CT angiogram head/neck negative. She was given K Centra. She was transferred to [facility] ER and on arrival NIHSS was 16. LDL 73, HgbA1c 5.4. The patient was admitted to the NCCU. MRI brain diffusion weighted images shows acute embolic infarcts in right HIGH SPEED WARPER TENDER and L cerebellar. FLAIR shows old left [...] Hemorrhage Note IDENTIFYING INFORMATION Behzad Hay MR# [id number] 10/24/2024 HISTORY OF PRESENT ILLNESS Behzad Hay is a 84 y.o. female with a history of afib on eliquis (LD 10/18 AM), HTN, HLD who presents from [place] with L thalamic ICH. LKW 2100 10/17. [...] for afib RVR 10/21: improved exam today, FULL SERVICE SUPERVISOR re-eval pending, lisinopril increased to home dose [...] Intracerebral Hemorrhage Score Intracerebral Hemorrhage (ICH) Scale [place] Coma Scale Points: 1-->GCS 5-12 Age>/=80: 1-->yes [...] appropriate - 10/21 improved neuro exam, requested FULL SERVICE SUPERVISOR re-eval - 10/22 improved neuro exam however failed FEES, re-eval Friday Elevated LFTs (POA) - elevated on admit, repeat LFTs downtrended Fall Risk: Assessed for patient fall risk and discussed safety measures during rounding. Disposition: Behzad Hay will likely be discharged to pending medical readiness David Sutton, COOPERATIVE EDUCATION COORDINATOR-PROPERTY ADJUSTER 10/24/2024 12:49 PM VITAL SIGNS Temp: [98.7 [...] Hemorrhage Note IDENTIFYING INFORMATION Behzad Hay MR# [id number] 10/23/2024 HISTORY OF PRESENT ILLNESS Behzad Hay is a 84 y.o. female with a history of afib on eliquis (LD 7/7 AM), HTN, HLD who presents from [place] with L thalamic ICH. LKW 2100 10/17. Pt reportedly awoke at 0600 on 10/18 with some R sided weakness and was found by her home health aide at 0900 slumped against the wall with R sided weakness, R facial droop and dysarthria. NIHSS on arrival to [facility] ED 16 (2, 1 commands, 1 L [...] for frequent neuro check 10/19: Transfer to CT service 10/20: drowsy today after receiving Seroquel overnight, repeat CTH stable, increase metoprolol for afib RVR 10/21: improved exam today, FULL SERVICE SUPERVISOR re-eval pending, lisinopril increased to home dose [...] appropriate - 10/21 improved neuro exam, requested FULL SERVICE SUPERVISOR re-eval - 10/22 improved neuro exam however [...] (LKN 2100 prior to bed). 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 OSH CT angiogram head/neck negative. She was given K Centra. She was transferred to [facility] and on arrival NIHSS was 16. LDL 73, HgbA1c 5.4. The patient was admitted to the NCCU. MRI brain diffusion weighted images shows acute embolic infarcts in right HIGH SPEED WARPER TENDER and L cerebellar. FLAIR shows old left [...] (LKN 2100 prior to bed). 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 OSH CT angiogram head/neck negative. She was given K Centra. She was transferred to [facility] and on arrival NIHSS was 16. LDL 73, HgbA1c 5.4. The patient was admitted to the NCCU. MRI brain diffusion weighted images shows acute embolic infarcts in right HIGH SPEED WARPER TENDER and L cerebellar. FLAIR shows old left [...] plan, Insurance Pre-certification Current Referrals and Status [facility] - Pending CM uploaded referral to [facility] for Facility to review. At time of initial assessment, daughter preference location for post hospital discharge rehabilitation was at [facility]. CM will continue to follow and assist patient and family through discharge planning process. PAM Fleming, SUPERVISOR SOLDER MAKING Program Admin Available by Secure Chat Acute Care Speech [...] on the below outcome measures/assessment score(s), and FULL SERVICE SUPERVISOR clinical judgment, discharge destination recommendation is: Correction Facility Barriers to discharge home: Need for 1:1 assist to ensure safety with all PO intake Supporting factors for discharge setting: Impaired swallow function limiting nutritional status and safety with oral intake Acute FULL SERVICE SUPERVISOR Outcomes Tracking Communicate basic wants and needs?: [...] Sat (%): 98 % (10/22 701) Acute FULL SERVICE SUPERVISOR Goals Plan of Care by ULISES Chow at 10/22/2024 8:22 AM Version 1 of 1 Problem: Dysphagia Goal: MBS - Patient will participate in Modified Barium Swallow (MBS) Study to objectively assess oropharyngeal swallow function to most appropriately guide FULL SERVICE SUPERVISOR plan of care Outcome: Not Met See [...] of session: wrist restraints Needs in reach. FULL SERVICE SUPERVISOR Evaluation and Treatment Time Swallowing Dysfunction Treatment 71443: 12 Upon discontinuation of Acute Care Speech Therapy Services or patient discharge from the hospital this note represents the current Speech Therapy Discharge Summary Neurovascular Stroke Service Intracerebral Hemorrhage Note IDENTIFYING INFORMATION Behzad Hay MR# [id number] 10/22/2024 HISTORY OF PRESENT ILLNESS Behzad Hay is a 84 y.o. female with a history of afib on eliquis (LD 7 AM), HTN, HLD who presents from [place] with L thalamic ICH. LKW 2100 10/17. [...] for frequent neuro check 10/19: Transfer to CT service 10/20: drowsy today after receiving Seroquel overnight, repeat CTH stable, increase metoprolol for afib RVR 10/21: improved exam today, FULL SERVICE SUPERVISOR re-eval pending, lisinopril increased to home dose [...] Intracerebral Hemorrhage Score Intracerebral Hemorrhage (ICH) Scale [place] Coma Scale Points: 1-->GCS 5-12 Age>/=80: 1-->yes [...] appropriate - 10/21 improved neuro exam, requested FULL SERVICE SUPERVISOR re-eval - 10/22 improved neuro exam however failed FEES, re-eval Friday Elevated LFTs (POA) - elevated on admit, repeat LFTs downtrended Fall Risk: Assessed for patient fall risk and discussed safety measures during rounding. Disposition: Behzad Hay will likely be discharged to pending medical readiness Jesus Yang, EAN-PROPERTY ADJUSTER 10/22/2024 11:22 AM VITAL SIGNS Temp: [97.7 [...] (LKN 2100 prior to bed). 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 OSH CT angiogram head/neck negative. She was given K Centra. She was transferred to [facility] and on arrival NIHSS was 16. LDL 73, HgbA1c 5.4. The patient was admitted to the NCCU. MRI brain diffusion weighted images shows acute embolic infarcts in right HIGH SPEED WARPER TENDER and L cerebellar. FLAIR shows old left [...] OT clinical judgment, discharge destination recommendation is: Correction Facility Barriers to discharge home: Patient needs [...] support to increase distal control for task, [id number] assist, Visual scanning and environmental awareness, Physical [...] LOB. Mobility Assessment/Intervention: Supine to Sit Mobility [place] Level: Supine->Sit: minimum assist (75% patient effort) Bed Features/Set-up: Supine->Sit: Head of bed elevated Skilled Rationale: Verbal cues, Positioning, Technique of activity, Initiation and execution of task, Cues for increased safety, Visual cues Skilled Intervention/Details: Supine->Sit: Multimodal cues for initiation; increased time to complete. Sit to Supine Mobility [place] Level: Sit->Supine: moderate assist (50% patient effort) Bed Features/Set-up: Sit->Supine: Head of bed elevated Skilled Rationale: Verbal cues, Tactile cues, Positioning, Technique of activity, Initiation and execution of task, Cues for increased safety Skilled Intervention/Details: Sit->Supine: Multimodal cues. Transfer Assessment/Intervention: Sit to Stand Transfer [place] Level: Sit->Stand: moderate assist (50% patient effort) [...] positioning, hand placement and initiation. Bed-Chair Transfer [place] Level: Bed<->Chair: maximum assist (25% patient effort) [...] is a good candidate for discharge to Correction Facility Barriers to discharge home: Patient needs [...] posture. Mobility Assessment/Intervention: Supine to Sit Mobility [place] Level: Supine->Sit: minimum assist (75% patient effort) Bed Features/Set-up: Supine->Sit: Head of bed elevated Skilled Rationale: Verbal cues, Tactile cues, Hand placement, Full extension to upright positioning/posture, Technique of activity Skilled Intervention/Details: Supine->Sit: verbal/tactile cues for instruction on transfer technique and min A For trunk management Sit to Supine Mobility [place] Level: Sit->Supine: moderate assist (50% patient effort) Bed Features/Set-up: Sit->Supine: Head of bed elevated Skilled Rationale: Verbal cues, Tactile cues, Hand placement, Technique of activity Skilled Intervention/Details: Sit->Supine: verbal/tactile cues for instruction on transfer technique and mod A For trunk management Transfer Assessment/Intervention: Sit to Stand Transfer [place] Level: Sit->Stand: moderate assist (50% patient effort) Physical Assist: Sit->Stand: 2 person assist Assistive Device: Sit->Stand: gait belt Skilled Rationale: Verbal cues, Tactile cues, Hand placement, Technique of activity Skilled Intervention/Details: Sit->Stand: x2 trials with verbal/tactile cues for instruction on transfer technique and hand placement. Bed-Chair Transfer [place] Level: Bed<->Chair: maximum assist (25% patient effort) [...] with a railin - Total Assistance CURRENT [facility] Mobility Raw Score: 10 CURRENT [facility] Mobility Functional Limitation: 76.75% Impaired in Basic [...] on the below outcome measures/assessment score(s), and FULL SERVICE SUPERVISOR clinical judgment, discharge destination recommendation is: Pending instumental swallow assessment Barriers to discharge home: Inability to communicate basic wants/needs Supporting factors for discharge setting: Impaired speech and language skills limiting ability to communicate basic wants/needs, Impaired swallow function limiting nutritional status and safety with oral intake Acute FULL SERVICE SUPERVISOR Outcomes Tracking Communicate basic wants and needs?: [...] comfort and reduce risk for disuse atrophy. FULL SERVICE SUPERVISOR to follow. Clinical Speech/Language/Cognitive Impression: Patient also [...] with speech output impacting intelligibility at times. FULL SERVICE SUPERVISOR will continue to follow for speech/language tx [...] Precautions/Restrictions: fall Respiratory Status: Room Air Acute FULL SERVICE SUPERVISOR Goals Plan of Care by ULISES Leija at 10/21/2024 10:20 AM Version 1 of 1 Problem: FULL SERVICE SUPERVISOR - Language Goal: Command Following - Patient [...] oropharyngeal swallow function to most appropriately guide FULL SERVICE SUPERVISOR plan of care Outcome: Ongoing Problem: Dysphagia Goal: FEES - Patient will participate in Fiberoptic Endoscopic Evaluation of Swallowing (FEES) study to objectively assess pharyngeal swallow function to most appropriately guide FULL SERVICE SUPERVISOR plan of care Outcome: Not Met Tx: FEES deferred day prior given increase in NIH and drowsiness with patient deemed not appropriate for participation. Improved participation in trials at bedside this visit. Patient however now requiring wrist restraints with intermittent attempts to remove DHT. Given minimal stim to outer nose this visit patient continued to slightly turn head away from FULL SERVICE SUPERVISOR. Does not appear FEES would be appropriate at this time, rather MBS may be more appropriate to instrumentally assess swallow safety/efficiency. Goal note met given the above. Goal: Dysphagia Goal: Ongoing Assessment - Patient will participate in ongoing assessment by accepting various PO consistency trials with appropriate participation/oral acceptance and no significant respiratory complications to determine readiness for instrumental Outcome: Met Tx: FULL SERVICE SUPERVISOR assisted with oral care utilizing suction toothbrush. [...] for next session: 10/21: good - MBS FULL SERVICE SUPERVISOR Outcomes: FOIS 1 Speech Language Pathologist: ULISES [...] wrist restraints, none altered Needs in reach. FULL SERVICE SUPERVISOR Evaluation and Treatment Time Speech Therapy - Individual 28536: 16 Swallowing Dysfunction Treatment 25341: 15 Upon discontinuation of Acute Care Speech Therapy Services or patient discharge from the hospital this note represents the current Speech Therapy Discharge Summary Neurovascular Stroke Service Intracerebral Hemorrhage Note IDENTIFYING INFORMATION Behzad Hay MR# [id number] 10/21/2024 HISTORY OF PRESENT ILLNESS Behzad Hay is a 84 y.o. female with a history of afib on eliquis (LD 7/7 AM), HTN, HLD who presents from [place] with L thalamic ICH. LKW 2100 10/17. [...] for frequent neuro check 10/19: Transfer to CT service 10/20: drowsy today after receiving Seroquel overnight, repeat CTH stable, increase metoprolol for afib RVR 10/21: improved exam today, FULL SERVICE SUPERVISOR re-eval pending, lisinopril increased to home dose [...] appropriate - 10/21 improved neuro exam, requested FULL SERVICE SUPERVISOR re-eval Elevated LFTs (POA) - elevated on admit, repeat LFTs downtrended Fall Risk: Assessed for patient fall risk and discussed safety measures during rounding. Disposition: Behzad Hay will likely be discharged to pending medical readiness Jesus Yang APRN-PROPERTY ADJUSTER 10/21/2024 11:54 AM VITAL SIGNS Temp: [97.5 [...] (LKN 2100 prior to bed). 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 OSH CT angiogram head/neck negative. She was given K Centra. She was transferred to [facility] ER and on arrival NIHSS was 16. LDL 73, HgbA1c 5.4. The patient was admitted to the NCCU. MRI brain diffusion weighted images shows acute right HIGH SPEED WARPER TENDER and L cerebellar infarct. FLAIR shows old [...] MD Speech Language Pathology Attempt Note 10/20/2024 FULL SERVICE SUPERVISOR Therapy Completed: Attempted Attempted Reason: Patient is [...] however falls back asleep quickly. Given this, FULL SERVICE SUPERVISOR to defer bedside assessment. Will plan to complete current FEES orders. FULL SERVICE SUPERVISOR to follow and assess readiness for instrumental [...] and has Home PT and SN through [facility] and has property claim rep. Patient was recently at [facility]. Daughter would like her to return, CM explained patient is pending Therapy evaluations and recommendations, patient also need a short term nutritional plan. CM will follow and assist with discharge planning. Initial Discharge Planning Expected Discharge Disposition: [facility] Facility Transportation Available for Discharge: Ambulance Anticipated DME: unknown at this time Anticipated Services at Discharge: Physical Therapy, Occupational Therapy, Outpatient follow up, Correction, Speech Therapy Patient Assessment Completed: Initial Legal Next of Kin Does the patient have a Guardian?: No Spouse: No Adult Child(yenifer), List All Adult Children: Yes Name and Contact information: Aditi Carvalho [phone] Would you like to add additional adult children?: Yes Name and Contact information: Art Hay [phone] Reviewed and Updated in Demographics? : Yes Advanced Care Planning Has the patient completed Advance Directives?: Completed, Not Available in Medical Record Copy of Advance Directives was requested?: Yes Advance Directives Requested From: Requested daughter email to CM Medication Management Does the patient have prescription insurance coverage? : Yes Is the patient on Anticoagulation? : Yes Provider or Clinic that manages Anticoagulation?: [facility] [address] [place] [address] [address] [facility] [address] Living Environment and Support System Is the patient from a facility or detention?: No Living Environment: House Patient Caregiving Responsibilities: Self Patient-identified caregiver/support network: (Patient unable to respond) Who does the patient identify as a teachable caregiver(s)?: Child(yenifer) - Independent Services Does the patient use a home health or hospice agency?: Yes - home health Agency Name and Contact : [facility] Current Home Services: Nursing, PT Would you like to add additional home health or hospice agencies?: Yes Agency Name and Contact: [facility] property claim rep Current with dialysis?: No Does the patient [...] at home? : Yes PAM Fleming, [place] Program Admin Available by Secure Chat Neurovascular Stroke Service Intracerebral Hemorrhage Note IDENTIFYING INFORMATION Behzad Hay MR# [id number] 10/20/2024 HISTORY OF PRESENT ILLNESS Behzad Hay is a 84 y.o. female with a history of afib on eliquis (LD 7 AM), HTN, HLD who presents from [place] with L thalamic ICH. LKW 2100 10/17. Pt reportedly awoke at 0600 on 10/18 with some R sided weakness and was found by her home health aide at 0900 slumped against the wall with R sided weakness, R facial droop and dysarthria. NIHSS on arrival to [facility] ED 16 (2, 1 commands, 1 L gaze pref, 1 L facial droop, 2 R arm, 2 L leg, 3 R leg, 2 aphasia, 2 dysarthria). CTH at OSH with L thalamic IPH. CTA at OSH with no acute abnormalities. Repeat CTH at [facility] with redemonstration of known L thalamic ICH and remote L MCA territory infarct. BP on arrival 148/76. INTERVAL HISTORY 10/18: Admitted to NCCU for frequent neuro check 10/19: Transfer to CT service 10/20: drowsy today after receiving Seroquel [...] (C) Slice Thickness (cm) : 0.5 c [facility] 11-15-2024 Hospital Discharge instructions Reta Galarza COOPERATIVE EDUCATION COORDINATOR-PROPERTY ADJUSTER - 11/15/2024 3:10 PM EDT Please take [...] you at all times. Stroke Education: visit [email or web address] What are the most common symptoms of [...] all ordered medications [x] Avoid non-prescription or [id number] medication not cleared by your physician [x] [...] may call the neurovascular doctors office at [phone], if you have questions Mon-Fri between 8:30 am and 4:30 pm. - For off hours or the weekend you may call the office or the hospital machine operator slitter technician at and ask for the stroke resident front office specialist to be paged. - If you have any other questions or needs, please call Adrian Platt RN, Stroke Nurse Navigator at [phone] Mon-Fri between 7:00am and 3:00pm. - Additional assistance may be found by reaching out to our Case Management Office at [phone]. *In the event of an Emergency: If you have a physical or psychiatric emergency call [phone] or go to your local emergency department. You should also call your outpatient provider's emergency number. Other reference numbers: [facility] Intake Office at [phone]; [facility] at [phone]; or Suicide Prevention Hotline at 467-466-6862. *Helpful phone numbers: Free Crisis Hotline: 3-166-324-[facility] ( ) Suicide Hotline: 510.713.3528 Seniors Suicide Hotline: 435.414.3973 [facility] Youth: [phone] [facility] [place]: 391.946.8892 (free counseling) [facility] Access Hotline: 026-339-MYLS (427-278-6448) 24-hour crisis text hotline: Text the word "4hope" to 185-470 for crisis support. Texting this number is [...] you may qualify for Medicaid/public assistance: The [facility] Department of Job and Family Services can now process garrett (TANF), food (SNAP) and Medicaid Applications over the phone. Please call [phone] (4951) and apply over the phone or apply online at www.benefits.[place].gov. Friday-Friday 8am-12pm noon. Medication Assistance Programs [employer] members can buy 100+ common prescriptions for FREE, $3 or $6. Annual membership is $36 for individuals and $72 for families (up to 6 people, including pets). Sign up online or enroll at your nearest pharmacy! [employer], web site can provide a significant number of coupons for medications at a much lower vyas. [place] Department of Aging The Department of Aging administers programs and services to meet the needs of older [place]. Services and resources offered per county may include transportation, housekeeping, meals and nutrition, personal care, case management, safety monitoring, home medical equipment, legal services, financial analyst accountant, health and wellness, education, caregiver support, respite care, etc. Call to be connected to the area agency on aging serving your community or visit aging.[place].gov/find-services. Request a consultation with a community resource expert at ltssi.age.[place].gov/ [facility] Stroke Support [facility] Stroke Support Group is for stroke survivors, friends, and family members. Meets on the Friday of each month from 6:30pm-7:30pm at [facility] ([address]; [place] [address]). Contact Reema Horne, at [phone] or [email or web address]. If you are outside of the [place] area, contact The [place] [employer] at www.stroke.org or 7-336-9-STROKE or for support groups in your area. You may also refer to the Your Care after a Stroke education booklet at go.[facility].edu/itdv6791 for additional resources. REID Canales - 11/15/2024 3:08 PM EDT Know your medicines Make sure you know why you are taking each medicine. Make a master list of all your medicines. Write down the medicine names and doctors' names. Include doses and side effects too. And write down why you take each medicine. Include all prescription and dago-sku-ypudsps medicines, vitamins, and supplements. Keep this list [...] plan your refills so that you can knot picker cloth all your medicines at the same time. [...] or chills documented in this encounter [facility] 11-11-2024 Telephone encounter Note Fax received and placed on provider desk Winsome Butler MA November 11, 2024 9:20 AM [facility] 11-11-2024 Miscellaneous Notes Fax received and placed on provider desk Winsome Butler MA November 11, 2024 9:20 AM Crystal Stroke Nurse Navigator with [facility] called and reports Pt's daughter wanted her PCP to refer Pt to Neurovascular Ambulatory. She reports they like them to start 4-6 weeks after discharge, and she hasn't been discharged yet. She is going to fax over their Neurovascular Ambulator [facility] in the [place] to fax # [phone]. Molly Adame RN documented in this encounter [facility] 11-10-2024 Telephone encounter Note Crystal Stroke Nurse Navigator with [facility] called and reports Pt's daughter wanted her PCP to refer Pt to Neurovascular Ambulatory. She reports they like them to start 4-6 weeks after discharge, and she hasn't been discharged yet. She is going to fax over their Neurovascular Ambulator [facility] in the [place] to fax # [phone]. Molly Adame RN [facility] 11-09-2024 Procedure note Associated Ord er(s): [...] 3 times a week Discharge destination recommendation: [facility] Barriers to discharge home: Need for [...] Review Onset of Illness/Injury or Surgery Date (FULL SERVICE SUPERVISOR): 10/18/24 Communication Status: Aphasic Hearing Acuity: Not impaired Behavioral Observations: cooperative, pleasant Respiratory Status O2 Device: room air O2 Sat (%): 97 % Resp Rate: 16 Acute FULL SERVICE SUPERVISOR Outcomes Tracking Communicate basic wants and needs?: no Demo insight/appreciation of deficits?: unable to determine Complete basic problem solving?: unable to determine History of Present Illness: per chart, Behzad Hay is a 84 y.o. female who was admitted on 10/18/2024 per chart: "history of afib on eliquis (LD 10/18 AM), HTN, HLD who presents from [place] with L thalamic ICH. LKW 2100 10/17. [...] MCA territory infarct. BP on arrival 148/76. FULL SERVICE SUPERVISOR History: Previous Clinical Swallow Eval: Yes Previous [...] time as well as maximum cues from FULL SERVICE SUPERVISOR (verbal, empty spoon, liquid wash) to swallow [...] disuse atrophy. Patient would benefit from ongoing FULL SERVICE SUPERVISOR services for dysphagia management, would consider bolus trials at the bedside to ensure oral clearance. FULL SERVICE SUPERVISOR to follow. FEES 10/22/2024: Behzad Hay was [...] order for ice chips with nursing. Ongoing FULL SERVICE SUPERVISOR services for addressing bolus challenge trials, possible [...] Procedure Performed & Read by: Shantal Mclean, FULL SERVICE SUPERVISOR Scope Serial #: [id number] Feeder Name: Clint, Med V Patient was [...] (NZSS) for Pneumonia. Dysphagia. 2018 May;33(1):115-122. doi: 10.1007/[id number]-s. Epub 2016Dec 04. PMID: 69625316. Stark Secretion Scale (KEITH) The Stark Secretion [...] in dysphagic patients. Eur Arch Otorhinolaryngol. 2017 Rafa;274(6):1846-0386. doi: 10.1007/[id number]-w. Ep2016Jun 23. PMID: 18569949. Physiologic Assessment Velopharyngeal Closure: (incomplete) Base of [...] Present - unable to manage reflux events [place] Pharyngeal Residue Severity Rating Scale: Consistency: Ice, [...] anatomically defined and image-based tool. Dysphagia, 30, 521-521.) Penetration/Aspiration Scale: Ice: 5 - Material enters [...] means if within pt/family goals of care. FULL SERVICE SUPERVISOR to continue to follow for therapeutic swallowing exercises and dynamic assessment of timing for repeat instrumental swallow assessment Rehab potential: good, to achieve stated therapy goals Plan for next session: 11/09: fair; dysphagia/lang tx Acute FULL SERVICE SUPERVISOR Goals Plan of Care by ULISES Leos [...] of rehabilitation discipline Patient Instruction/Education comments: Reviewed FULL SERVICE SUPERVISOR purpose and POC.Discussed ongoing NPO status and [...] 5 times a week Discharge destination recommendation: [facility] Barriers to discharge home: Need for [...] (%): 99 % Resp Rate: 20 Acute FULL SERVICE SUPERVISOR Outcomes Tracking Communicate basic wants and needs?: no Demo insight/appreciation of deficits?: unable to determine Complete basic problem solving?: unable to determine History of Present Illness: Behzad Hay is a 84 y.o. female who was admitted on 10/18/2024 per chart "with a history of afib on eliquis (LD 10/18 AM), HTN, HLD who presents from [place] with L thalamic ICH. LKW 2100 10/17. Pt reportedly awoke at 0600 on 10/18 with some R sided weakness and was found by her home health aide at 0900 slumped against the wall with R sided weakness, R facial droop and dysarthria. NIHSS on arrival to [facility] ED 16 (2, 1 commands, 1 [...] for frequent neuro check 10/19: Transfer to CT service 10/20: drowsy today after receiving Seroquel overnight, repeat CTH stable, increase metoprolol for afib RVR 10/21: improved exam today, FULL SERVICE SUPERVISOR re-eval pending, lisinopril increased to home dose [...] left MCA territory infarct." Prior Medical History: FULL SERVICE SUPERVISOR History: Previous Clinical Swallow Eval: Yes Previous [...] order for ice chips with nursing. Ongoing FULL SERVICE SUPERVISOR services for addressing bolus challenge trials, possible [...] 0 Procedure Details: Patient was positioned : [facility] (60-90 degrees) Exam Was Conducted In: Lateral, 30 frames per second (fps) Barriers to Completion of A-P View: Cognitive/behavioral limitations Barriers for Adequate Visualization During Exam: None Consistencies Assessed: Thin Liquid Barium: 1 tsp, Straw Mildly Thick/[place] Liquid Barium: Straw Pudding Barium: Spoon Oral [...] time as well as maximum cues from FULL SERVICE SUPERVISOR (verbal, empty spoon, liquid wash) to swallow [...] disuse atrophy. Patient would benefit from ongoing FULL SERVICE SUPERVISOR services for dysphagia management, would consider bolus trials at the bedside to ensure oral clearance. FULL SERVICE SUPERVISOR to follow. Rehab potential: good, to achieve stated therapy goals Plan for next session: 10/26- ongoing bolus challenge trials Recommended Rehab Activities: Bolus challenge swallows Acute FULL SERVICE SUPERVISOR Goals Plan of Care by Sheree Mckenzie, [...] alarms at end of session: none altered FULL SERVICE SUPERVISOR Evaluation and Treatment Time MBS/Motion Fluoroscopic Swallowing Eval 39333: 20 Upon discontinuation of Acute Care Speech [...] 5 times a week Discharge destination recommendation: [facility] Barriers to discharge home: Need for [...] Review Onset of Illness/Injury or Surgery Date (FULL SERVICE SUPERVISOR): 10/18/24 (date of admission) Communication Status: Aphasic Hearing Acuity: Not impaired Behavioral Observations: cooperative, pleasant Respiratory Status O2 Device: room air O2 Sat (%): 98 % Resp Rate: 18 Acute FULL SERVICE SUPERVISOR Outcomes Tracking Communicate basic wants and needs?: (emerging) Demo insight/appreciation of deficits?: no Complete basic problem solving?: (limited assessment, suspect emerging) History of Present Illness: Behzad Hay is a 84 y.o. female who was admitted on 10/18/2024 per chart: "history of afib on eliquis (LD 7/7 AM), HTN, HLD who presents from [place] with L thalamic ICH. LKW 10/17. Pt [...] for frequent neuro check 10/19: Transfer to CT service 10/20: drowsy today after receiving Seroquel overnight, repeat CTH stable, increase metoprolol for afib RVR 10/21: improved exam today, FULL SERVICE SUPERVISOR re-eval pending, lisinopril increased to home dose 10/22: improved neuro exam however failed FEES, re-eval Friday history of afib on eliquis (LD 77 AM), HTN, HLD who presents from [place] with L thalamic ICH. LKW 10/17. Pt [...] for frequent neuro check 10/19: Transfer to CT service 10/20: drowsy today after receiving Seroquel overnight, repeat CTH stable, increase metoprolol for afib RVR 10/21: improved exam today, FULL SERVICE SUPERVISOR re-eval pending, lisinopril increased to home dose 10/22: improved neuro exam however failed FEES" Prior Medical History: - FULL SERVICE SUPERVISOR History: Previous Clinical Swallow Eval: No Previous Swallow Therapy: No Previous MBS: No Previous FEES: No Prior Results: Home Health FULL SERVICE SUPERVISOR note 10/14/2024: ASSESSMENT: Patient demonstrated a need [...] Procedure Performed & Read by: Yola Selio, FULL SERVICE SUPERVISOR Scope Serial #: [id number] Feeder Name: Baldemar Jaramillo Patient was positioned [...] (NZSS) for Pneumonia. Dysphagia. 2018 May;33(1):115-122. doi: 10.1007/[id number]-y. Epub 2016Dec 04. PMID: 74138437. Stark Secretion Scale (KEITH) The Stark Secretion [...] in dysphagic patients. Eur Arch Otorhinolaryngol. 2017 Rafa;274(6):5778-9150. doi: 10.1007/[id number]-l. Epub 2016Jun 23. PMID: 92036302. Physiologic Assessment Velopharyngeal Closure: (incomplete) Base of [...] Lesli Zapata, & Brittney Inman. (2015). The [place] pharyngeal residue severity rating scale: an anatomically [...] order for ice chips with nursing. Ongoing FULL SERVICE SUPERVISOR services for addressing bolus challenge trials, possible [...] if pt able to follow directions) Acute FULL SERVICE SUPERVISOR Goals Plan of Care by ULISES Chow [...] by: Delicia Danielson PA-C Staff: Name of Student Development Dean: REID Lewis Consent Verbal consent not obtained Written consent not obtainedThe procedure was performed in an emergent situation Indications Indications: hemodynamic monitoring Perryman Protocol Patient does not state understanding of [...] 10:25 PM EDT documented in this encounter [facility] 11-04-2024 Note HNO ID: [id number] Author: ?, ?, ? Service: ? Author [...] side effects. PCP is aware Ishmael Romo [facility] Team [facility] 11-04-2024 History of Present illness Narrative [...] side effects. PCP is aware Ishmael Romo [facility] Team documented in this encounter [facility] 11-04-2024 Note Patient Outreach ( PO) BEHZAD HAY ([id number]) 1940 F Date Time Provider Department 11/04/24 [...] side effects. 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 07/06/2018 Collagenous colitis [K52.831] 12/21/2018 IBS (irritable bowel syndrome) [K58.9] 12/21/2018 Hiatal hernia [K44.9] 09/11/2020 Fall from standing [W19.XXXA] 06/05/2021 Rotator cuff tear arthropathy, left [M75.102, M*10/29/2021 Paroxysmal atrial fibrillation (HCC) [I48.0] 04/11/2022 Primary hypertension [I10] 12/30/2022 Acute pain of right shoulder [M25.511] 04/16/2023 Severe pain of left shoulder [M25.512] 04/16/2023 Cervicalgia [M54.2] 04/16/2023 Encounter Status:Closed by ISHMAEL ROMO on 11/04/24 [facility] 11-01-2024 Consult note Formatting of th [...] to the 56 cm christiane using the [employer] electromagnetic guidance machine. Tube secured with Nasal [...] enteral nutrition regimen, contact unit RD per [facility] dietitian on-call schedule. Brenna LUI, LD, [facility] Pager #[phone] Associated Order(s): IP CONSULT TO GASTROENTEROLOGY N [...] 7 AM), HTN, HLD who presents from [place] with L thalamic ICH with hosp course c/b Afib-RVR. UA concerning for UTI, started on Ceftriaxone. We are consulted for PEG tube placement. Pt has been seen by FULL SERVICE SUPERVISOR. First seen in on 10/21. She failed [...] 7/7 AM), HTN, HLD who presents from [place] with L thalamic ICH with hosp course c/b Afib-RVR. UA concerning for UTI, started on Ceftriaxone. We are consulted for PEG tube placement. IMPRESSION PEG Placement. Dysphagia Malnutrition. Need for mcfp feeding. Assessment/Planning No obvious contraindication for PEG [...] she can also continue to work with FULL SERVICE SUPERVISOR as she improves clinically for her multiple [...] & Nutrition Department of Internal Medicine [facility] Pager x [phone] or Epic Chat with questions For urgent/stat calls or consults 5pm to 7am or all day on the weekend, please page the on-call GI fellow on [employer]. [facility]--> Internal Medicine--> Gastroenterology, Hepatology, & Nutrition--> 1st Call Fel [facility] OR STAT/NEW GI Cons Wknd For follow up questions regarding this patient 7am to 5pm, contact the IBD consults fellow or VIDYA on [employer]. [facility]--> Internal Medicine--> Gastroenterology, Hepatology, & [...] 7/7 AM), HTN, HLD who presents from [place] with L thalamic ICH with hosp course c/b Afib-RVR. UA concerning for UTI, started on Ceftriaxone. We are consulted for PEG tube placement. We recommend bowel regimen optimization, and will aim to schedule her for PEG early next week, will need consent from LNOK. We will continue to follow for more precise timing. She is not receiving a procedure today. Za Rudolph MD Bagg[facility] - Clinical Division of Gastroenterology, Hepatology & [...] to the 63 cm christiane using the [employer] electromagnetic guidance machine. Tube secured with Nasal bridle. FRANSISCO Mckinley RD assisted with the procedure. Patient tolerated the procedure well. KUB released. Guidewire bagged, labeled, and taped to patient white board in room Will defer to MD to read x-ray and provide bedside RN with an OK to use when appropriate. Ousmane Knowles MS, RD LD [facility] Pager# [phone] small-bore feeding tube consult and tube management. NOTE: Availability Mon-Fri 8am-4pm (last consult taken at 3pm) only. Tube Team phone: . For questions pertaining to patient's enteral nutrition regimen, [facility]. Stroke Attending Addendum [...] (LKN 2100 prior to bed). 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 OSH CT angiogram head/neck negative. She was given K Centra. She was [facility] ER and on arrival NIHSS was 16. LDL 73, HgbA1c 5.4. The patient was admitted to the [facility]. MRI brain diffusion weighted images shows acute right HIGH SPEED WARPER TENDER and L cerebellar infarct. FLAIR shows old [...] scan. Appreciate NV recs. Kristin Pressley MD [facility]agem[facility] of Neurological Surgery [id number] documented in this encounter [facility] 10-20-2024 Telephone encounter Note Chu Cordova. Your home health patient was admitted to [facility] for CVA as of 10/18/24. All home health services have been placed on HOLD. Thank you. Mack Brito RN [facility] Work Phone: 10-20-2024 Miscellaneous Notes Chu Cordova. Your home health patient was admitted to [facility] for CVA as of 10/18/24. All home health services have been placed on HOLD. Thank you. Mack Brito RN [facility] documented in this encounter [facility] 10-20-2024 Miscellaneous Notes Patient had a CVA 10/18 and [facility] where she has been admitted. documented in this encounter [facility] 10-20-2024 Patient's home Note Patient had a CVA 10/18 and life flighted to [facility] where she has been admitted. [facility] Work Phone: 10-19-2024 History and physical [...] 7/ AM), HTN, HLD who presents from [place] with L thalamic ICH. LKW 2100 10/17. [...] Resource Strain: Low Risk (09/27/2024) Received from [facility] Overall Financial Resource Strain (CARDIA) Difficulty of Paying Living Expenses: Not very hard Food Insecurity: No Food Insecurity (09/27/2024) Received from [facility] Hunger Vital Sign Worried About Running Out of Food in the Last Year: Never true Ran Out of Food in the Last Year: Never true Transportation Needs: No Transportation Needs (09/27/2024) Received from [facility] PRAPARE - Transportation Lack of Transportation (Medical): No Lack of Transportation (Non-Medical): No Physical Activity: Insufficiently Active (09/27/2024) Received from [facility] Exercise Vital Sign Days of Exercise per Week: 7 days Minutes of Exercise per Session: 10 min Stress: No Stress Concern Present (09/27/2024) Received from [facility] [place] of Occupational Health - Occupational Stress Questionnaire Feeling of Stress : Not at all Social Connections: Moderately Integrated (09/27/2024) Received from [facility] Social Connection and Isolation Panel [NHANES] [...] Housing Stability: Low Risk (08/13/2023) Received from [facility] Housing Stability Vital Sign Unable to [...] (10/19 1999) - Goal SpO2 >92% - [id number], encourage pulmonary toileting - On room air; [...] 6.7 - DIET NPO WITHOUT meds - [place] Swallow Screening Result: failed=NPO - Place DHT; [...] Last updated: 10/18 [x] Get lines out [place]: inserted 10/18, (indication:hemodynamic montioring) Tapia: inserted 10/18, [...] care unit providing critical care services (CPT 93214) to Behzad Hay today independent of procedures [...] the assigned neurocritical care provider (resident, fellow, FIELD TRAFFIC INVESTIGATOR, or PA) or page/call the corresponding number below NCC1 (Beds [phone]): Salvatore # [phone], pager #[phone] NCC2 (Beds [phone], 12 Lc, and overflow): Salvatore #: [phone], pager #[phone] Cosigned by Zoya Sher MD at 10/19/2024 5:13 PM EDT NEUROCRITICAL CARE HISTORY AND PHYSICAL HOSPITAL VISIT DEMOGRAPHICS Patient: Behzad Hay Code status: Full Code Admission date: 10/18/2024 1:37 PM Hospital days: LOS: 0 days CHIEF COMPLAINT L [facility] HISTORY OF PRESENT ILLNESS Behzad Hay is a 84 y.o. female with a past history of afib on eliquis (LD 7 AM), HTN, HLD who presents from [place] with L thalamic ICH. LKW 2100 10/17. Pt reportedly awoke at 0600 on 10/18 with some R sided weakness and was found by her home health aide at 0900 slumped against the wall with R sided weakness, R facial droop and dysarthria. NIHSS on arrival to [facility] ED 16 (2, 1 commands, 1 [...] Resource Strain: Low Risk (09/27/2024) Received from [facility] Overall Financial Resource Strain (CARDIA) Difficulty of Paying Living Expenses: Not very hard Food Insecurity: No Food Insecurity (09/27/2024) Received from [facility] Hunger Vital Sign Worried About Running Out of Food in the Last Year: Never true Ran Out of Food in the Last Year: Never true Transportation Needs: No Transportation Needs (09/27/2024) Received from [facility] PRAPARE - Transportation Lack of Transportation (Medical): No Lack of Transportation (Non-Medical): No Physical Activity: Insufficiently Active (09/27/2024) Received from [facility] Exercise Vital Sign Days of Exercise per Week: 7 days Minutes of Exercise per Session: 10 min Stress: No Stress Concern Present (09/27/2024) Received from [facility] [place] [employer] Occupational Health - Occupational Stress Questionnaire Feeling of Stress : Not at all Social Connections: Moderately Integrated (09/27/2024) Received from [facility] Social Connection and Isolation Panel [NHANES] [...] Housing Stability: Low Risk (08/13/2023) Received from [facility] Housing Stability Vital Sign Unable to [...] (10/18 1800) - Goal SpO2 >92% - AFU6DVD, encourage pulmonary toileting - On room air; [...] 6.4 - DIET NPO WITHOUT meds - [place] Swallow Screening Result: failed=NPO - Place DHT; [...] Last updated: 10/18 [x] Get lines out [place]: inserted 10/18, (indication:hemodynamic montioring) Tapia: inserted 10/18, [...] care unit providing critical care services (CPT 18638) to Behzad Hay today independent of procedures [...] the assigned neurocritical care provider (resident, fellow, FIELD TRAFFIC INVESTIGATOR, or PA) or page/call the corresponding number below NCC1 (Beds [phone]): Adrian # [phone], pager #[phone] NCC2 (Beds [phone], 12 Lc, and overflow): Salvatore #: [phone], pager #[phone] Cosigned by Zoya Sher MD at 10/19/2024 [...] (on Eliquis), HTN, HLD who presents from [place] with L BG ICH. LKW 2100 10/17. Pt reportedly awoke at 0600 this AM with some R sided weakness and was found by her home health aide at 0900 slumped against the wall with R sided weakness, R facial droop and dysarthria. NIHSS on arrival to [facility] ED 16 (2 ?, 1 commands, 1 L gaze pref, 1 L facial droop, 2 R arm, 2 L leg, 3 R leg, 2 aphasia, 2 dysarthria). CTH at OSH with L BG IPH. CTA at OSH with no acute abnormalities. Repeat CTH at [facility] with redemonstration of known L BG ICH [...] Known Well: Time: 2099 Source of information: [facility] medical record Review of Systems A complete review of systems was deferred for emergent treatment. Neurovascular-specific History / Information Home antiplatelet/anticoagulation therapy: Anticoagulation: Eliquis. Held s/p L BG IPH Patient Current Risk Factors: Stroke risk factors include hypertension, atrial fibrillation, or hyperlipidemia. Prior stroke history: yes; exact type of CVA unknown. Location: [facility] . Family Hx: unknown Stroke Diagnostic/Treatment [...] 10 mg 10 mg Intravenous PRN Gary Farser MD 10 mg at 10/18/24 1343 Lidocaine 1% (PF) (XYLOCAINE MPF) 1 % injection 0.3 mL 0.3 mL Infiltration Once PRN aGry Fraser MD No current outpatient medications on [...] Gait: Deferred Laboratory Results Diagnostics/Procedures: Labs-CBC Labs-Chem 7([facility]) Labs-Coags Additional Labs No results found for: "CHOLESTEROL", "TRIG", "HDL", "LDLCALC", "LDLDIRECT" Labs-Hemoglobin A1C No results found for: "HGBA1C" Imaging Imaging was not analyzed by Sbai, No LVO ([facility] CTA) CT Stroke Head:L [...] Continuous telemetry -PT, OT, Speech and social services aide consults Other problems: Complexity. Wound Documentation Any [...] PM EDT documented in this encounter [facility] 10-18-2024 Telephone encounter Note Both Eliquis and Lopressor were refilled in August for year supply to Ian Ramos. Pt notified via [employer] to check with pharmacy for refill. Mara Hatch MA [facility] 10-18-2024 Miscellaneous Notes Both Eliquis and Lopressor were refilled in August for year supply to Ian Ramos. Pt notified via [employer] to check with pharmacy for refill. Mara Hatch MA documented in this encounter [facility] 10-18-2024 Emergency department Note Bed: E037 [...] Resource Strain: Low Risk (09/27/2024) Received from [facility] Overall Financial Resource Strain (CARDIA) Difficulty of Paying Living Expenses: Not very hard Food Insecurity: No Food Insecurity (09/27/2024) Received from [facility] Hunger Vital Sign Worried About Running Out of Food in the Last Year: Never true Ran Out of Food in the Last Year: Never true Transportation Needs: No Transportation Needs (09/27/2024) Received from [facility] PRAPARE - Transportation Lack of Transportation (Medical): No Lack of Transportation (Non-Medical): No Physical Activity: Insufficiently Active (09/27/2024) Received from [facility] Exercise Vital Sign Days of Exercise per Week: 7 days Minutes of Exercise per Session: 10 min Stress: No Stress Concern Present (09/27/2024) Received from [facility] [place] [facility] [employer] - Occupational Stress Questionnaire Feeling of Stress : Not at all Social Connections: Moderately Integrated (09/27/2024) Received from [facility] Social Connection and Isolation Panel [NHANES] [...] Housing Stability: Low Risk (08/13/2023) Received from [facility] Housing Stability Vital Sign Unable to [...] Range PTT 31.9 24.0 - 34.3 sec [facility] 7 - ED Result Value Ref [...] Relative 40.1 % Lymph Relative 26.8 % [place] Relative 3.6 % Eos Relative 28.6 % Baso Relative 0.9 % Segs & Bands, Absolute 3.26 1.64 - 7.28 K/uL Abs Lymph Manual 2.18 1.16 - 3.51 K/uL Abs [place]land Manual 0.29 0.22 - 0.87 K/uL Abs [...] Negative Negative Ketones Urine Negative Negative Specific [place] Urine 1.024 1.001 - 1.035 Blood Urine [...] symptoms well controlled in the department. A zugzlr-wp-qjld dictation tool was used in the production of this document and all attempts were made for proper editing but errors may occur. Gary Fraser MD Resident 10/18/24 1540 documented in this encounter [facility] 10-18-2024 Discharge summary [facility] 10-18-2024 Radiology Diagnostic study note [facility] Imaging Services [address] [place] [address] [id number] Chest 1 View MR#: [id number] Acct: [id number] Name: BEHZAD HAY Rep #: [id number] : 1940 F 84 From: Roque Rodriguez DO PCP: Tasha Deutsch, INSIDE SALES ADVISOR Status: REG ER Study:Chest 1 View Date of Exam: 5 Exam# [id number] Ordering Dr: Wellington Woods DO PROCEDURE: CHEST [...] arthritic changes of both shoulders. Reading Location: [id number] CC: INSIDE SALES ADVISOR Tasha Deutsch; Dr. Mihai Woods DO ~ Jigmaker: Signed [facility] 10-18-2024 Radiology Diagnostic study note [facility] Imaging Services [address] [place] [address] [id number] STROKE CTA Head AND Neck W/Con MR#: [id number] Acct: [id number] Name: BEHZAD HAY Rep #: [id number] : 1940 F 84 From: Felipe José MD PCP: GARFIELD Maldonado Status: REG ER Study:STROKE CTA Head AND Neck W/Con Date of Exam: 10/18/24 Exam# [id number] Ordering Dr: Wellington Woods DO PROCEDURE: STROKE [...] RIGHT Vertebral: Unremarkable. LEFT Vertebral: Unremarkable. Anatomy: [place] anatomy is normal. Aneurysm or [...] abnormality is seen. Stable examination. Reading Location: [place] [address] CC: INSIDE SALES ADVISOR Tasha Deutsch; Dr. Mihai Woods DO ~ Jigmaker: Signed [facility] 10-18-2024 Radiology Diagnostic study note [facility] Imaging Services [address] [place] [address] [id number] STROKE Brain/Head without Cont MR#: [id number] Acct: [id number] Name: BEHZAD HAY Rep #: [id number] : 1940 F 84 From: Felipe José MD PCP: Tasha Deutsch, INSIDE SALES ADVISOR Status: REG ER Study:STROKE Brain/Head without Cont Date of Exam: 10/18/24 Exam# [id number] Ordering Dr: Wellington Woods DO PROCEDURE: STROKE [...] 11:16 am with readback verification. Reading Location: [place] [address] CC: GARFIELD Deutsch; Dr. Mihai Woods, DO ~ Jigmaker: Signed [facility] 10-14-2024 Miscellaneous Notes SITUATION: only [...] and speech skills. documented in this encounter [facility] 10-14-2024 Patient's home Note SITUATION: only [...] linguistic skills, language skills and speech skills. [facility] Work Phone: 10-14-2024 Progress note Formatting of t his note might be different from the original. Please let patient know that there was some bacteria in her urine but not an infection. They did not even do sensitivity as this did not need treated. Increase water intake. [facility] 10-14-2024 Miscellaneous Notes Please let patient know that there was some bacteria in her urine but not an infection. They did not even do sensitivity as this did not need treated. Increase water intake. documented in this encounter [facility] 10-13-2024 Miscellaneous Notes SITUATION: only patient and private duty caregiver present during today's visit. patient reports the following changes since the last homecare visit: medications/allergies--None, falls--None. patient reports no current pain. BACKGROUND: Diagnoses (reason for Home Care): Ataxia following cerebral infarction Objective: Patient's performance today: mod cueing to complete: language skills and speech skills. ASSESSMENT: Patient demonstrates a need for further skilled FULL SERVICE SUPERVISOR services for cognitive linguistic skills, language skills and speech skills. Plan of care, progress towards goals, and visit frequency reviewed with patient. Patient is making progress towards goals Current Discharge plan: {self-care and family support; anticipated discharge date 10/16/24. RECOMMENDATION: Next visit to focus on cognitive linguistic skills, language skills and speech skills. See intervention summary for intervention/education details. documented in this encounter [facility] 10-13-2024 Patient's home Note SITUATION: only [...] Patient demonstrates a need for further skilled FULL SERVICE SUPERVISOR services for cognitive linguistic skills, language skills and speech skills. Plan of care, progress towards goals, and visit frequency reviewed with patient. Patient is making progress towards goals Current Discharge plan: {self-care and family support; anticipated discharge date 10/16/24. RECOMMENDATION: Next visit to focus on cognitive linguistic skills, language skills and speech skills. See intervention summary for intervention/education details. [facility] Work Phone: 10-13-2024 Miscellaneous Notes SITUATION: Pt. seen for ALCAZAR Routine Visit. private duty caregiver present during today's visit. patient reports the following since the last homecare visit: medications/allergies--no changes, no fall. patient reports She slept a lot better last night, She has been doing her exercises and practicing her writing. BACKGROUND: Diagnoses or reason for Home Care: Ataxia following cerebral infarction [facility] 08/22/24 on 09/20/24 Weight Bearing or [...] next by OTR/L. documented in this encounter [facility] 10-13-2024 Patient's home Note SITUATION: Pt. seen for ALCAZAR Routine Visit. private duty caregiver present during today's visit. patient reports the following since the last homecare visit: medications/allergies--no changes, no fall. patient reports She slept a lot better last night, She has been doing her exercises and practicing her writing. BACKGROUND: Diagnoses or reason for Home Care: Ataxia following cerebral infarction [facility] 08/22/24 on 09/20/24 Weight Bearing or [...] Pt. to be seen next by OTR/L. [facility] Work Phone: 10-12-2024 Instructions Tasha Deutsch APRN.CNP - 10/12/2024 12:15 PM EDT 1) Macrobid daily for 3 days 2) Will send urine for culture 3) Consider cranberry 4 oz daily 4) Loratadine 10 mg daily documented in this encounter [facility] 10-12-2024 Note HNO ID: [id number] Author: TASHA EDUTSCH APRN.CNP Service: ? Author Type: Nurse Practitioner [...] Hiatal hernia History of esophagogastroduodenoscopy (EGD) 09/23/2014 [facility]: All normal HTN (hypertension) Hyperlipidemia, mixed [...] (Rosins), Bactrim [Sulfamethoxazole-Trimethoprim], Macrobid [Nitrofurantoin Monohyd/M-Cryst], and Sbdvrej-Omp-Dns Reductase Inhibitors MEDICATIONS Current Outpatient Medications Medication [...] Brother age 76 other (CVA) Brother other (PAINT BRUSH MAKER shunt) Brother Hypertension Sister Diabetes Sister age [...] Physical Exam Tati (more content not included)... [facility] 10-12-2024 History of Present illness Narrative [...] Hiatal hernia History of esophagogastroduodenoscopy (EGD) 09/23/2014 [facility]: All normal HTN (hypertension) Hyperlipidemia, mixed Osteoarthritis Osteopenia PUD (peptic ulcer disease) 2014 Vitamin D deficiency PAST SURGICAL HISTORY Procedure Laterality Date BUNIONECTOMY, LAPIDUS-TYPE Left 03/30/2007 Dr. Beltran BUNIONECTOMY, LAPIDUS-TYPE Right 03/30/2008 Dr. Beltran CATARACT EXTRACTION W/ INTRAOCULAR LENS IMPLANT HX Left 03/31/2003 Dr. Sosa COLONOSCOPY 09/23/[address] Addy Enriquez, [place] internal hemorrhoids, otherwise WNL COLONOSCOPY FLX DX [...] LENS Left 02/17/2003 REVJ TOT HIP ARTHRP [facility] W/WO AGRFT/ALGRFT Right 05/30/2011 ROTATOR CUFF REPAIR Right 2013 R rotator cuff repair TONSILLECTOMY HX TONSILLECTOMY PRIMARY/SECONDARY <AGE 12 Tonsillectomy TOTAL HIP JOINT REPLACEMENT Left 10/03/2014 ALLERGIES Adhesive Tape (Rosins), Bactrim [Sulfamethoxazole-Trimethoprim], Macrobid [Nitrofurantoin Monohyd/M-Cryst], and Tzqpmxg-Yaf-Epq Reductase Inhibitors MEDICATIONS Current Outpatient Medications Medication [...] Brother age 76 other (CVA) Brother other (PAINT BRUSH MAKER shunt) Brother Hypertension Sister Diabetes Sister age [...] Tasha Deutsch APRN.CNP documented in this encounter [facility] 10-12-2024 Telephone encounter Note Advised she would need to make an appointment to get a urine sample. Mara Hatch MA [facility] 10-12-2024 Miscellaneous Notes Advised she would need to make an appointment to get a urine sample. Mara Hatch MA documented in this encounter [facility] 10-11-2024 Miscellaneous Notes SITUATION: Only patient [...] to sty close to the walker and knot picker cloth her feet . Able to make 2 [...] for intervention/education details. documented in this encounter [facility] 10-11-2024 Patient's home Note SITUATION: Only [...] to sty close to the walker and knot picker cloth her feet . Able to make 2 [...] directed See intervention summary for intervention/education details. [facility] Work Phone: 10-11-2024 Miscellaneous Notes SITUATION: Pt. seen for ALCAZAR Routine Visit. private duty caregiver present during today's visit. patient reports the following since the last homecare visit: medications/allergies--no changes, no fall. patient reports She's a little tired because her sleep schedule is messed up. BACKGROUND: Diagnoses or reason for Home Care: Ataxia following cerebral infarction [facility] 08/22/24 on 09/20/24 Weight Bearing or Precautions: falls ASSESSMENT: Focus of Visit B UE [facility] Patient identified goals "to get back to normal" Plan of care, goals, and visit frequency reviewed and agreed upon with patient and/or caregiver. See intervention summary for intervention/education details. Current Discharge Plan: remain in community with/without caregiver support. Anticipate discharge by 10/29/2024 RECOMMENDATION: Next visit to focus on Bathroom Transfers,balance. documented in this encounter [facility] 10-11-2024 Patient's home Note SITUATION: Pt. seen for ALCAZAR Routine Visit. private duty caregiver present during today's visit. patient reports the following since the last homecare visit: medications/allergies--no changes, no fall. patient reports She's a little tired because her sleep schedule is messed up. BACKGROUND: Diagnoses or reason for Home Care: Ataxia following cerebral infarction [facility] 08/22/24 on 09/20/24 Weight Bearing or Precautions: falls ASSESSMENT: Focus of Visit B UE [facility] Patient identified goals "to get back to normal" Plan of care, goals, and visit frequency reviewed and agreed upon with patient and/or caregiver. See intervention summary for intervention/education details. Current Discharge Plan: remain in community with/without caregiver support. Anticipate discharge by 10/29/2024 RECOMMENDATION: Next visit to focus on Bathroom Transfers,balance. [facility] Work Phone: 10-08-2024 Miscellaneous Notes SITUATION: Pt. seen for ALCAZAR Routine Visit. private duty caregiver present during today's visit. caregiver reports the following since the last homecare visit: medications/allergies--no changes, no fall. patient reports She is good, her putty is a little too hard, so she needs a barrel filler head one. BACKGROUND: Diagnoses or reason for Home Care: Ataxia following cerebral infarction [facility] 08/22/24 on 09/20/24 Weight Bearing or [...] [facility]. documented in this encounter [facility] 10-08-2024 Patient's home Note SITUATION: Pt. seen for ALCAZAR Routine Visit. private duty caregiver present during today's visit. caregiver reports the following since the last homecare visit: medications/allergies--no changes, no fall. patient reports She is good, her putty is a little too hard, so she needs a barrel filler head one. BACKGROUND: Diagnoses or reason for Home Care: Ataxia following cerebral infarction [facility] 08/22/24 on 09/20/24 Weight Bearing or [...] to focus on B UE [facility]. [facility] Work Phone: 10-07-2024 Miscellaneous Notes SITUATION: [...] Patient demonstrates a need for further skilled FULL SERVICE SUPERVISOR services for cognitive linguistic skills. Plan of care, progress towards goals, and visit frequency reviewed with patient and caregiver. Patient is making progress towards goals Current Discharge plan: {family support; anticipated discharge date 10/16/2024. RECOMMENDATION: Next visit to focus oncognitive linguistic skills. See intervention summary for intervention/education details. documented in this encounter [facility] 10-07-2024 Patient's home Note SITUATION: private [...] Patient demonstrates a need for further skilled FULL SERVICE SUPERVISOR services for cognitive linguistic skills. Plan of care, progress towards goals, and visit frequency reviewed with patient and caregiver. Patient is making progress towards goals Current Discharge plan: {family support; anticipated discharge date 10/16/2024. RECOMMENDATION: Next visit to focus oncognitive linguistic skills. See intervention summary for intervention/education details. [facility] Work Phone: 10-07-2024 Telephone encounter Note Speech ordered [facility] 10-07-2024 Miscellaneous Notes Speech ordered This patient would benefit from continued speech therapy in the outpatient setting upon discharge from home care. I am requesting orders to be placed for outpatient speech therapy services to evaluate and treat for cognitive linguistic deficits and aphasia. The patient's daughter requested the orders be placed so that [facility] Thank you, Moni Rodríguez MA, CCC-FULL SERVICE SUPERVISOR documented in this encounter [facility] 10-06-2024 Miscellaneous Notes SITUATION: Pt. seen for ALCAZAR Routine Visit. friend present during today's visit. patient reports the following since the last homecare visit: medications/allergies--no changes, no fall. patient reports A nurse was just here. BACKGROUND: Diagnoses or reason for Home Care: Ataxia following cerebral infarction [facility] 08/22/24 on 09/20/24 Weight Bearing or [...] functional tasks, balance. documented in this encounter [facility] 10-06-2024 Patient's home Note SITUATION: Pt. seen for ALCAZAR Routine Visit. friend present during today's visit. patient reports the following since the last homecare visit: medications/allergies--no changes, no fall. patient reports A nurse was just here. BACKGROUND: Diagnoses or reason for Home Care: Ataxia following cerebral infarction [facility] 08/22/24 on 09/20/24 Weight Bearing or [...] to focus on Daily functional tasks, balance. [facility] Work Phone: 10-06-2024 Miscellaneous Notes SITUATION: Correction Discipline Discharge visit completed today. private duty [...] still on the eliquis and will see web services professional next week to discuss the Watchman device. [...] and ST services. documented in this encounter [facility] 10-06-2024 Patient's home Note SITUATION: Correction Discipline Discharge visit completed today. private duty [...] still on the eliquis and will see web services professional next week to discuss the Watchman device. [...] continue with PT, OT and ST services. [facility] 10-06-2024 Telephone encounter Note This patient would benefit from continued speech therapy in the outpatient setting upon discharge from home care. I am requesting orders to be placed for outpatient speech therapy services to evaluate and treat for cognitive linguistic deficits and aphasia. The patient's daughter requested the orders be placed so that she can find them in [facility]. Thank you, Moni Rodríguez MA, CCC-FULL SERVICE SUPERVISOR [facility] Work Phone: 10-05-2024 Telephone encounter Note I think I would. Your vitamin D level was okay on vitamin D. That may help to prevent improved bone health. [facility] 10-05-2024 Miscellaneous Notes I think I would. Your vitamin D level was okay on vitamin D. That may help to prevent improved bone health. See [employer] message. Mara Hatch MA Good news, you may stop ferrous sulfate. Blood counts are normal. Calcium is a little elevated, will monitor for now. Everything else looks good. documented in this encounter [facility] 10-05-2024 Telephone encounter Note See [employer] message. Mara Hatch MA [facility] 10-05-2024 Progress note Formatting of t his note might be different from the original. Good news, you may stop ferrous sulfate. Blood counts are normal. Calcium is a little elevated, will monitor for now. Everything else looks good. [facility] 10-04-2024 Miscellaneous Notes SITUATION: daughter and [...] Patient demonstrates a need for further skilled FULL SERVICE SUPERVISOR services for cognitive linguistic skills and aphasia. Plan of care, progress towards goals, and visit frequency reviewed with patient and caregiver. Patient is making progress towards goals Current Discharge plan: {OP rehab program; anticipated discharge date 10/16/2024. RECOMMENDATION: Next visit to focus oncognitive linguistic skills and language skills phone work/ memory/recall See intervention summary for intervention/education details. documented in this encounter [facility] 10-04-2024 Patient's home Note SITUATION: daughter [...] Patient demonstrates a need for further skilled FULL SERVICE SUPERVISOR services for cognitive linguistic skills and aphasia. Plan of care, progress towards goals, and visit frequency reviewed with patient and caregiver. Patient is making progress towards goals Current Discharge plan: {OP rehab program; anticipated discharge date 10/16/2024. RECOMMENDATION: Next visit to focus oncognitive linguistic skills and language skills phone work/ memory/recall See intervention summary for intervention/education details. [facility] Work Phone: 10-04-2024 Miscellaneous Notes SITUATION: [...] for intervention/education details. documented in this encounter [facility] 10-04-2024 Patient's home Note SITUATION: daughter [...] dc See intervention summary for intervention/education details. [facility] Work Phone: 10-04-2024 Instructions Tasha Deutsch [...] and arm. - Walk around your neighborhood pa[place] as you feel able, gradually increasing your [...] in 4 months documented in this encounter [facility] 10-04-2024 Note HNO ID: [id number] Author: TASHA DEUTSCH APRN.CNP Service: ? Author [...] Hiatal hernia History of esophagogastroduodenoscopy (EGD) 09/23/2014 [facility]: All normal HTN (hypertension) Hyperlipidemia, mixed Osteoarthritis Osteopenia PUD (peptic ulcer disease) 2014 Vitamin D deficiency PAST SURGICAL HISTORY Procedure Laterality Date BUNIONECTOMY, LAPIDUS-TYPE Left 03/30/2007 Dr. Devin LOPEZCTOMY, LAPIDUS-TYPE Right 03/30/2008 Dr. Beltran CATARACT EXTRACTION W/ INTRAOCULAR LENS IMPLANT HX Left 03/31/2003 Dr. Sosa COLONOSCOPY 09/23/[address] Addy Enriquez, [place] internal hemorrhoids, otherwise WNL COLONOSCOPY FLX DX [...] LENS Left 02/17/2003 REVJ TOT HIP ARTHRP [facility] W/WO AGRFT/ALGRFT Right 05/30/2011 ROTATOR CUFF REPAIR Right 2013 R rotator cuff repair TONSILLECTOMY HX TONSILLECTOMY PRIMARY/SECONDARY Tonsillectomy TOTAL HIP JOINT REPLACEMENT Left 10/03/2014 ALLERGIES Adhesive Tape (Rosins), Bactrim [Sulfamethoxazole-Trimethoprim], Macrobid [Nitrofurantoin Monohyd/M-Cryst], and Soedewx-Ygk-Usj Reductase Inhibitors MEDICATIONS Current Outpatient Medications Medication [...] extract (CRANBERRY ORAL) (more content not included)... [facility] 10-04-2024 History of Present illness Narrative This is a 84 year old female who presents today with: Patient presents with: Hospital F/U HISTORY OF PRESENT ILLNESS: Behzad Hay is a 84 year old female. 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 Not wanting to take blood thinners fci. Fall risk. Wanting to consider Watchman's. Went [...] History of esophagogastroduodenoscopy (EGD) 09/23/2014 [facility]: All normal HTN (hypertension) Hyperlipidemia, mixed [...] (Rosins), Bactrim [Sulfamethoxazole-Trimethoprim], Macrobid [Nitrofurantoin Monohyd/M-Cryst], and Ididvec-Hmm-Drd Reductase Inhibitors MEDICATIONS Current Outpatient Medications Medication [...] Brother age 76 other (CVA) Brother other (PAINT BRUSH MAKER shunt) Brother Hypertension Sister Diabetes Sister age [...] need for long-term anticoagulation. - Appointment with web services professional scheduled for October 12 to evaluate candidacy [...] as needed for worsening/no improvement. Tasha Deutsch APRN.PROPERTY ADJUSTER documented in this encounter [facility] 10-01-2024 Miscellaneous Notes SITUATION: Pt was seated in recliner upon arrival. private duty caregiver present during today's visit. patient reports the following since the last homecare visit: medications/allergies--no changes, no fall. BACKGROUND: Disciplines ordered: SN, PT, OT, ST, and SPRING TESTER Primary Diagnoses (reason for Home Care): Ataxia following cerebral infarction [facility] 08/22/24 on 09/20/24 ACTIVE PROBLEM LIST [...] 24 hour assistance being provided by paid CHIROPRACTOR ASSISTANT and a son who lives locally. She has 2 dtrs who live out of town. Son is providing meals, transportation, and assists with med managment. CHIROPRACTOR ASSISTANT provide supervision and assist with I/ADL. Pt [...] X2 and able to answer questions apporpiately. Superintendent Maintenance Airports strength: L - 16.6 lbs R - 8.4 lbs PLOF: Pt was Indep with self care, transfers, and light IADL tasks. She was ambulating without device in the home, with a FWW ambulating with neightbors around the neighborhood, and cane to appointments. Family was bringing in everning meal daily. She was driving, and taking care of all med management, director financial planning, and making MD appointments. Social Situation: Pt [...] and possible outpatient therapy. Patient evaluated by [facility] occupational therapy. Reviewed and explained [...] for intervention/education details. documented in this encounter [facility] 10-01-2024 Patient's home Note SITUATION: Pt was seated in recliner upon arrival. private duty caregiver present during today's visit. patient reports the following since the last homecare visit: medications/allergies--no changes, no fall. BACKGROUND: Disciplines ordered: SN, PT, OT, ST, and SPRING TESTER Primary Diagnoses (reason for Home Care): Ataxia following cerebral infarction [facility] 08/22/24 on 09/20/24 ACTIVE PROBLEM LIST [...] 24 hour assistance being provided by paid CHIROPRACTOR ASSISTANT and a son who lives locally. She has 2 dtrs who live out of town. Son is providing meals, transportation, and assists with med managment. CHIROPRACTOR ASSISTANT provide supervision and assist with I/ADL. Pt [...] X2 and able to answer questions apporpiately. Superintendent Maintenance Airports strength: L - 16.6 lbs R - 8.4 lbs PLOF: Pt was Indep with self care, transfers, and light IADL tasks. She was ambulating without device in the home, with a FWW ambulating with neightbors around the neighborhood, and cane to appointments. Family was bringing in everning meal daily. She was driving, and taking care of all med management, director financial planning, and making MD appointments. Social Situation: Pt [...] and possible outpatient therapy. Patient evaluated by [facility] occupational therapy. Reviewed and explained [...] HEP/strengthening. See intervention summary for intervention/education details. [facility] Work Phone: 09-29-2024 Miscellaneous Notes SITUATION: [...] for intervention/education details. documented in this encounter [facility] 09-29-2024 Patient's home Note SITUATION: friend [...] permits See intervention summary for intervention/education details. [facility] Work Phone: 09-29-2024 Miscellaneous Notes SITUATION: [...] Patient demonstrates a need for further skilled FULL SERVICE SUPERVISOR services for cognitive linguistic skills and language skills. Plan of care, progress towards goals, and visit frequency reviewed with patient. Patient is making progress towards goals Current Discharge plan: {family support; anticipated discharge date 10/16/24. RECOMMENDATION: Next visit to focus oncognitive linguistic skills, language skills and speech skills. See intervention summary for intervention/education details. documented in this encounter [facility] 09-29-2024 Patient's home Note SITUATION: private [...] Patient demonstrates a need for further skilled FULL SERVICE SUPERVISOR services for cognitive linguistic skills and language skills. Plan of care, progress towards goals, and visit frequency reviewed with patient. Patient is making progress towards goals Current Discharge plan: {family support; anticipated discharge date 10/16/24. RECOMMENDATION: Next visit to focus oncognitive linguistic skills, language skills and speech skills. See intervention summary for intervention/education details. [facility] Work Phone: 09-29-2024 Miscellaneous Notes SITUATION: Correction routine visit completed today. private duty caregiver [...] CVA sx progressing. documented in this encounter [facility] 09-29-2024 Patient's home Note SITUATION: Correction routine visit completed today. private duty caregiver [...] check, how are post CVA sx progressing. [facility] 09-27-2024 Telephone encounter Note Noted. [facility] Work Phone: 09-27-2024 Miscellaneous Notes Noted. There has been a delay in service for Home Care OT Evaluation for this patient due to schedule conflict. Patient was notified on 09/27/24. Thank you for this referral, please contact us with any questions. Nicole Garcia documented in this encounter [facility] 09-27-2024 Telephone encounter Note There has been a delay in service for Home Care OT Evaluation for this patient due to schedule conflict. Patient was notified on 09/27/24. Thank you for this referral, please contact us with any questions. Nicole Efraíncb [facility] 09-27-2024 Miscellaneous Notes SITUATION: private duty [...] Patient demonstrates a need for further skilled FULL SERVICE SUPERVISOR services for cognitive linguistic skills, language skills and speech skills. Plan of care, progress towards goals, and visit frequency reviewed with patient. Patient is making progress towards goals Current Discharge plan: {self-care and family support; anticipated discharge date 10/16/2024. RECOMMENDATION: Next visit to focus oncognitive linguistic skills and language skills. See intervention summary for intervention/education details. documented in this encounter [facility] 09-27-2024 Patient's home Note SITUATION: private [...] Patient demonstrates a need for further skilled FULL SERVICE SUPERVISOR services for cognitive linguistic skills, language skills and speech skills. Plan of care, progress towards goals, and visit frequency reviewed with patient. Patient is making progress towards goals Current Discharge plan: {self-care and family support; anticipated discharge date 10/16/2024. RECOMMENDATION: Next visit to focus oncognitive linguistic skills and language skills. See intervention summary for intervention/education details. [facility] Work Phone: 09-25-2024 Miscellaneous Notes SITUATION: daughter present during today's visit. patient reports the following since the last homecare visit: medications/allergies--no changes, no fall. patient and caregiver reports that she is doing well but is still shuffling with the walker . BACKGROUND: Diagnoses (reason for Home Care): [facility]- then [facility] rehab 08/22/24 on 09/20/24. Ataxia following [...] Surgical Precautions: fall ASSESSMENT: Patient evaluated by [facility] physical therapy. Reviewed and explained [...] for intervention/education details. documented in this encounter [facility] 09-25-2024 Patient's home Note SITUATION: daughter present during today's visit. patient reports the following since the last homecare visit: medications/allergies--no changes, no fall. patient and caregiver reports that she is doing well but is still shuffling with the walker . BACKGROUND: Diagnoses (reason for Home Care): [facility]- then [facility] rehab 08/22/24 on 09/20/24. Ataxia following cerebral infarction ACTIVE PROBLEM LIST Trigger Ring Finger of Right Hand Injury of Extensor Tendon of Hand Spontaneous Rupture of Extensor Tendon of Left Hand Acquired Trigger Finger Chronic Renal Insufficiency, Stage 3 (Moderate) ([facility]) Vitamin D Deficiency Ddd (Degenerative Disc Disease), Cervical Primary Osteoarthritis of Right Hip Collagenous Colitis Ibs (Irritable Bowel Syndrome) Hiatal Hernia Fall From Standing Rotator Cuff Tear Arthropathy, Left Paroxysmal Atrial Fibrillation (Hcc) Primary Hypertension Acute Pain of Right Shoulder Severe Pain of Left Shoulder Cervicalgia Weight Bearing or Surgical Precautions: fall ASSESSMENT: Patient evaluated by [facility] physical therapy. Reviewed and explained [...] transfers See intervention summary for intervention/education details. [facility] Work Phone: 09-24-2024 Telephone encounter Note Patient was admitted to [facility] on August 22, 2024 and [...] 4.3, BUN 19, creatinine 0.98, glucose 101 [facility] 09-24-2024 Miscellaneous Notes Patient was admitted to [facility] on August 22, 2024 and [...] 0.98, glucose 101 documented in this encounter [facility] 09-23-2024 Miscellaneous Notes SITUATION: only patient [...] for intervention/education details. documented in this encounter [facility] 09-23-2024 Patient's home Note SITUATION: only [...] skills. See intervention summary for intervention/education details. [facility] Work Phone: 09-23-2024 Telephone encounter Note 09/23/24 SUPERVISOR SOLDER MAKING called the pt.'s daughter Aditi Carvalho regarding community resources for the pt. The pt.'s daughter stated that she lives in [place] but her brother the pt.'s son lives [...] the pt. is doing after next week. SUPERVISOR SOLDER MAKING asked about the pt. being and if her was a . The pt.'s daughter stated the pt.'s was not a . The pt.'s daughter stated they were looking for a private Aide not through an Agency. SUPERVISOR SOLDER MAKING discussed [employer] and the pt.'s daughter stated her [id number] was looking on [employer]. She stated her amczjr-rt-cpi had a in her family. SUPERVISOR SOLDER MAKING asked the pt.'s daughter if the pt. belonged to a cheondoism and possibly asking the cheondoism of anyone. The pt.'s daughter stated the pt. does belong to a cheondoism. SUPERVISOR SOLDER MAKING discussed [facility] [employer] [facility] [employer] for PASSPORT. The pt.'s daughter was aware of [employer] and stated the pt. did not meet financial guidelines for Medicaid. SUPERVISOR SOLDER MAKING asked the pt.'s daughter if the pt. owns her home and educated on Estate Recovery on [employer]. SUPERVISOR SOLDER MAKING asked about transportation and family is able to get the pt. to appointments. SUPERVISOR SOLDER MAKING discussed Home Delivered Meal providers and the Aides will make the pt.'s meals. SUPERVISOR SOLDER MAKING asked the pt.'s daughter if the pt. had an ER Medical Alert and she stated they were going to look into this. SUPERVISOR SOLDER MAKING educated on getting an ER Medical Alert through [facility]. The pt.'s daughter wanted SUPERVISOR SOLDER MAKING to Email her information on ER Medical Alert providers. Her Email: [email or web address] The pt.'s daughter stated she just wanted to know about community resources and she feels they are managing the pt.'s care and the pt. having the hired Aide starting next week. SUPERVISOR SOLDER MAKING provided the pt.'s daughter with her name and phone number. 09/23/24 SUPERVISOR SOLDER MAKING Emailed the pt.'s daughter information on getting an ER Medical Alert through [facility] and other ER Medical Alerts and website for [employer] [place] [employer] Aging. Thank You, [facility] Work Phone: 09-23-2024 Miscellaneous Notes 09/23/24 SUPERVISOR SOLDER MAKING called the pt.'s daughter Aditi Carvalho regarding community resources for the pt. The pt.'s daughter stated that she lives in [place] but her brother the pt.'s son lives [...] the pt. is doing after next week. SUPERVISOR SOLDER MAKING asked about the pt. being and if her was a [place]. The pt.'s daughter stated the pt.'s was not a . The pt.'s daughter stated they were looking for a private Aide not through an Agency. SUPERVISOR SOLDER MAKING discussed [employer] and the pt.'s daughter stated her oluctd-jo-vgo was looking on [employer]. She stated her jpjixq-cd-xzw had a in her family. SUPERVISOR SOLDER MAKING asked the pt.'s daughter if the pt. belonged to a cheondoism and possibly asking the cheondoism of anyone. The pt.'s daughter stated the pt. does belong to a cheondoism. SUPERVISOR SOLDER MAKING discussed [facility] [employer] [facility] [employer] for [employer]. The pt.'s daughter was aware of [employer] and stated the pt. did not meet financial guidelines for Medicaid. SUPERVISOR SOLDER MAKING asked the pt.'s daughter if the pt. owns her home and educated on Estate Recovery on [employer]. SUPERVISOR SOLDER MAKING asked about transportation and family is able to get the pt. to appointments. SUPERVISOR SOLDER MAKING discussed Home Delivered Meal providers and the Aides will make the pt.'s meals. SUPERVISOR SOLDER MAKING asked the pt.'s daughter if the pt. had an ER Medical Alert and she stated they were going to look into this. SUPERVISOR SOLDER MAKING educated on getting an ER Medical Alert through [facility]. The pt.'s daughter wanted SUPERVISOR SOLDER MAKING to Email her information on ER Medical Alert providers. Her Email: [email or web address] The pt.'s daughter stated she just wanted to know about community resources and she feels they are managing the pt.'s care and the pt. having the hired Aide starting next week. SUPERVISOR SOLDER MAKING provided the pt.'s daughter with her name and phone number. 09/23/24 SUPERVISOR SOLDER MAKING Emailed the pt.'s daughter information on getting an ER Medical Alert through [facility] and other ER Medical Alerts and website for [employer] [place] [employer]. Thank You, documented in this encounter [facility] 09-23-2024 Miscellaneous Notes 09/23/24 12:14 PM - 12:21 PM SUPERVISOR SOLDER MAKING called the pt.'s daughter Aditi Carvalho regarding community resources for the pt. The pt.'s daughter stated that she lives in [place] but her brother the pt.'s son lives [...] the pt. is doing after next week. SUPERVISOR SOLDER MAKING asked about the pt. being and if her was a . The pt.'s daughter stated the pt.'s was not a [place]. The pt.'s daughter stated they were looking for a private Aide not through an Agency. SUPERVISOR SOLDER MAKING discussed [employer] and the pt.'s daughter stated her nmzmpk-am-cze was looking on [employer]. She stated her hqjlrg-jq-wmq had a in her family. SUPERVISOR SOLDER MAKING asked the pt.'s daughter if the pt. belonged to a cheondoism and possibly asking the cheondoism of anyone. The pt.'s daughter stated the pt. does belong to a cheondoism. SUPERVISOR SOLDER MAKING discussed [facility] [employer] [facility] [employer] for [employer]. The pt.'s daughter was aware of [employer] and stated the pt. did not meet financial guidelines for Medicaid. SUPERVISOR SOLDER MAKING asked the pt.'s daughter if the pt. owns her home and educated on Estate Recovery on [employer]. SUPERVISOR SOLDER MAKING asked about transportation and family is able to get the pt. to appointments. SUPERVISOR SOLDER MAKING discussed Home Delivered Meal providers and the Aides will make the pt.'s meals. SUPERVISOR SOLDER MAKING asked the pt.'s daughter if the pt. had an ER Medical Alert and she stated they were going to look into this. SUPERVISOR SOLDER MAKING educated on getting an ER Medical Alert through [facility]. The pt.'s daughter wanted SUPERVISOR SOLDER MAKING to Email her information on ER Medical Alert providers. Her Email: [email or web address] The pt.'s daughter stated she just wanted to know about community resources and she feels they are managing the pt.'s care and the pt. having the hired Aide starting next week. SUPERVISOR SOLDER MAKING provided the pt.'s daughter with her name and phone number. 09/23/24 12:40 PM SUPERVISOR SOLDER MAKING Emailed the pt.'s daughter information on getting an ER Medical Alert through [facility] and other ER Medical Alerts and website for [employer] [place] [employer]. 09/23/24 SUPERVISOR SOLDER MAKING messaged Tasha Deutsch APRN.NICO - SUPERVISOR SOLDER MAKING phone call with the pt.'s daughter Aditi Carvalho and that SUPERVISOR SOLDER MAKING Emailed the pt.'s daughter information on getting an ER Medical Alert through [facility] and other ER Medical Alerts and website for [employer] [place] [employer]. documented in this encounter [facility] 09-23-2024 Patient's home Note 09/23/24 12:14 PM - 12:21 PM SUPERVISOR SOLDER MAKING called the pt.'s daughter Aditi Carvalho regarding community resources for the pt. The pt.'s daughter stated that she lives in [place] but her brother the pt.'s son lives [...] the pt. is doing after next week. SUPERVISOR SOLDER MAKING asked about the pt. being and if her was a [place]. The pt.'s daughter stated the pt.'s was not a [place]. The pt.'s daughter stated they were looking for a private Aide not through an Agency. SUPERVISOR SOLDER MAKING discussed [employer] and the pt.'s daughter stated her iufuwu-cw-cmm was looking on [employer]. She stated her kuytuq-qt-iik had a in her family. SUPERVISOR SOLDER MAKING asked the pt.'s daughter if the pt. belonged to a cheondoism and possibly asking the cheondoism of anyone. The pt.'s daughter stated the pt. does belong to a cheondoism. SUPERVISOR SOLDER MAKING discussed [facility] [employer] [facility] for [employer]. The pt.'s daughter was aware of [employer] and stated the pt. did not meet financial guidelines for Medicaid. SUPERVISOR SOLDER MAKING asked the pt.'s daughter if the pt. owns her home and educated on Estate Recovery on [employer]. SUPERVISOR SOLDER MAKING asked about transportation and family is able to get the pt. to appointments. SUPERVISOR SOLDER MAKING discussed Home Delivered Meal providers and the Aides will make the pt.'s meals. SUPERVISOR SOLDER MAKING asked the pt.'s daughter if the pt. had an ER Medical Alert and she stated they were going to look into this. SUPERVISOR SOLDER MAKING educated on getting an ER Medical Alert through [facility]. The pt.'s daughter wanted SUPERVISOR SOLDER MAKING to Email her information on ER Medical Alert providers. Her Email: [email or web address] The pt.'s daughter stated she just wanted to know about community resources and she feels they are managing the pt.'s care and the pt. having the hired Aide starting next week. SUPERVISOR SOLDER MAKING provided the pt.'s daughter with her name and phone number. 09/23/24 12:40 PM SUPERVISOR SOLDER MAKING Emailed the pt.'s daughter information on getting an ER Medical Alert through [facility] and other ER Medical Alerts and website for [place] on Aging. 09/23/24 SUPERVISOR SOLDER MAKING messaged Tasha Deutsch APRN.PROPERTY ADJUSTER - SUPERVISOR SOLDER MAKING phone call with the pt.'s daughter Aditi Carvalho and that SUPERVISOR SOLDER MAKING Emailed the pt.'s daughter information on getting an ER Medical Alert through [facility] and other ER Medical Alerts and website for [place] on Aging. [facility] Work Phone: 09-23-2024 Miscellaneous Notes 09/23/24 11:03 AM - 11:04 AM SUPERVISOR SOLDER MAKING called the pt.'s daughter Aditi Carvalho and she stated that she was on another call and asked SUPERVISOR SOLDER MAKING to call her back around noon. documented in this encounter [facility] 09-23-2024 Patient's home Note 09/23/24 11:03 AM - 11:04 AM SUPERVISOR SOLDER MAKING called the pt.'s daughter Aditi Carvalho and she stated that she was on another call and asked SUPERVISOR SOLDER MAKING to call her back around noon. [facility] Work Phone: 09-22-2024 Miscellaneous Notes SITUATION: Correction SOC visit completed today. daughter also present during today's visit. patient reports the following: Allergies--reviewed Medications--full medication reconciliation completed Falls--None DME-Reviewed and added to chart Advance Directives: Patient does have advance directives. BACKGROUND: Discharged/Referral from acute [facility] on 09/19/24 following treatment for CVA. [...] Pt's main need will be for OT, FULL SERVICE SUPERVISOR and PT. Pt was not using the [...] as needed. She plans to return to [place] this weekend. Aditi is agrreable to a TC from [facility] [place] offer any further community resources but does not feel a vs from [facility] is necessary. Pt also has a son that lives in [place] and will be assisting with transportation to [...] Patient agreeable to PT, OT, ST and SPRING TESTER referrals. Patient declined N/A referrals. Additional concerns to be followed up on: NONE Next visit to focus on (be specific): BP check, ?improvement in mobility, speech and R sided function? documented in this encounter [facility] 09-22-2024 Patient's home Note SITUATION: Correction SOC visit completed today. daughter also present during today's visit. patient reports the following: Allergies--reviewed Medications--full medication reconciliation completed Falls--None DME-Reviewed and added to chart Advance Directives: Patient does have advance directives. BACKGROUND: Discharged/Referral from [facility] on 09/19/24 following treatment for CVA. Pertinent [...] has a follow up appt scheduled with [facility] and cg plans to discuss [...] Pt's main need will be for OT, FULL SERVICE SUPERVISOR and PT. Pt was not using the [...] as needed. She plans to return to [place] this weekend. Aditi is agrreable to a TC from [facility] [place] offer any further community resources but does not feel a vs from [facility] is necessary. Pt also has a son that lives in [place] and will be assisting with transportation to [...] Patient agreeable to PT, OT, ST and SPRING TESTER referrals. Patient declined N/A referrals. Additional concerns to be followed up on: NONE Next visit to focus on (be specific): BP check, ?improvement in mobility, speech and R sided function? [facility] 09-21-2024 Telephone encounter Note Patient daughter called in asking for status of her appointment date and time. [facility] Work Phone: 09-21-2024 Miscellaneous Notes Patient daughter called in asking for status of her appointment date and time. documented in this encounter [facility] 09-18-2024 Discharge summary Note Date/Time September 18, 2024 11:46am [facility] Medical Records Department [address] [place] [id number] Instructions for Home/Discharge Instructions 09/17/24 0804 MR#: [id number] Acct: [id number] Name: BEHZAD HAY Rep #:[id number] : [id number] 84 From: Behzad Dorado DO PCP: Tasha Deutsch, INSIDE SALES ADVISOR Status:ADM IN Discharge Instructions DC O2, CPAP, [...] that you need help with. The social services aide gave your family information about this. 7. It has been a pleasure having you on rehab. You are always so pleasant and ready to work with therapy and we have all enjoyed watching you get better and better. If you or your family have any questions after you leave rehab please do not hesitate to call me. OFFICE: [phone] CELL: [phone] NURSES STATION ON REHAB: [phone] Discharge Orders/Prescriptions Prescriptions: New cephalexin 500 mg [...] Santana; Dr. Swapnil Balderrama MD ~ Signed [facility] Work Phone: [phone]) 797-983906-07-2025 [facility]06-07-2025 Discharge summary [facility] Medical Records Department [address] [place] [address] Instructions for Home/Discharge Instructions 09/17/24 0804 MR#: [id number] Acct: [id number] Name: BEHZAD HAY Rep #:[id number] : 1940 84 From: Behzad Dorado DO PCP: Tasha Deutsch, INSIDE SALES ADVISOR Status:ADM IN Discharge Instructions DC O2, CPAP, [...] that you need help with. The social services aide gave your family information about this. 7. It has been a pleasure having you on rehab. You are always so pleasant and ready to work with therapy and we have all enjoyed watching you get better and better. If you or your family have any questions after you leave rehab please do not hesitate to call me. OFFICE: [phone] CELL: [phone] NURSES STATION ON REHAB: [phone] Discharge Orders/Prescriptions Prescriptions: New cephalexin 500 mg [...] can be placed): [facility] CC: GARIFELD Deutsch; FIELD TRAFFIC INVESTIGATORPamela Santana; Dr. Swapnil Balderrama MD ~ Signed [facility]06-06-2025 Telephone encounter Note* Telephone Encounter - Tamela James - 09/17/2024 1:48 PM EDT Date/Time: 09/17/2024 1:48 PM Spoke with ADITI CARVALHO@ phone #: [phone] - Preferred # for contact: ADITI CARVALHO@ phone #: [phone] Have you received help from a home care company in the last 60 days? NO Are you agreeable to [facility] services? YES What address will we be seeing you at? [address] [facility] [address] Do you have any upcoming appointments or things we need to schedule around? NO Do you have a teachable CG or can you manage your care independently? CG Who? FAMILY [facility] Work Phone: [phone] Miscellaneous Notes* Telephone Encounter - Tamela James - 09/17/2024 1:48 PM EDT Date/Time: 09/17/2024 1:48 PM Spoke with ADITI CRISTO@ phone #: [phone] - Preferred # for contact: ADITI CARVALHO@ phone #: [phone] Have you received help from a home care company in the last 60 days? NO Are you agreeable to [facility] services? YES What address will we be seeing you at? [address] [place] [address] Do you have any upcoming appointments or things we need to schedule around? NO Do you have a teachable CG or can you manage your care independently? CG Who? FAMILY [facility] Telephone encounter Note * Telephone Encounter - Tasha Deutsch APRN.CNP - 09/17/2024 12:55 PM EDT Yes. I will follow [facility]06-06-2025 Miscellaneous Notes* Telephone Encounter - Tasha Deutsch APRN.CNP - 09/17/2024 12:55 PM EDT Yes. I will follow * Telephone Encounter - Elisha Thompson LPN - 09/17/2024 12:28 PM EDT Tasha Deutsch APRN.CNP Please advise if you are agreeable to signing and following for [facility] services? Our Clinicians will be sending the Plan of Care to you for review and approval. They will reach out for any appropriate orders required to provide home care services for the patient. We are not able to initiate HHC services without a following provider. Home care clinicians may also obtain orders from [facility] Virtualist Providers Thank you and we would be happy to answer any questions. Elisha Thompson LPN 09/17/2024 12:28 PM documented in [facility] encounter[facility]06-[facility]-2025 Telephone encounter Note * Telephone Encounter - Elisha Thompson LPN - 09/17/2024 12:28 PM EDT Tasha Deutsch, COOPERATIVE EDUCATION COORDINATOR.PROPERTY ADJUSTER Please advise if you are agreeable to [...] care clinicians may also obtain orders from [facility] Virtualist Providers Thank you and we would be happy to answer any questions. Elisha Thompson LPN 09/17/2024 12:28 PM [facility]06-05-2025 Progress note Author Behzad Dorado [facility] Note Date/Time September 16, 2024 3:10p m [facility] Medical Records Department [address] [place] [address] Progress Note 09/16/24 1033 MR#: [id number] Acct: [id number] Name: BEHZAD HAY Rep #:[id number] : 1940 84 From: Behzad Dorado DO PCP: Tasha Deutsch, INSIDE SALES ADVISOR Status:ADM IN Location: [place] [address] Subjective Subjective Behzad was seen on team [...] she will still need 24/7 supervision [place]. She needs a lo9t of cuing to [...] 04/11 supervision. Would like prescriptions faxed to [facility] retail pharmacy. 6. Bidet recommended for home to help maintain good hygiene post BM. 7. CBC and BMP tomorrow Charges/Coding Visit Charges Inpatient E&M: 17960 Subs Hosp L2 09/16/24 1510 <Electronically signed by Behzad Dorado DO> Behzad Dorado DO Cosigner Signature (if applicable): CC: ~ Signed [facility] Work Phone: 1(726) 328-545606-05-2025 Progress note [facility] Medical Records Department [address] [place] [address] Progress Note 09/16/24 1033 MR#: [id number] Acct: [id number] Name: BEHZAD HAY Rep #:[id number] : 1940 84 From: Behzad Weber Estrada PCP: Tasha Deutsch, INSIDE SALES ADVISOR Status:ADM IN Location: [address] Subjective Subjective Behzad was seen on [...] but,she will still need 24/7 supervision [place]. She needs a lo9t of cuing to [...] / supervision. Would like prescriptions faxed to [facility] retail pharmacy. 6. Bidet recommended for home to help maintain good hygiene post BM. 7. CBC and BMP tomorrow Charges/Coding Visit Charges Inpatient E&M: 42269 Subs Hosp L2 09/16/24 1510 Behzad Weber Estrada DO Cosigner Signature (if applicable): CC: ~ Signed [facility]06-05-2025 Telephone encounter Note* Telephone Encounter - Winsome Butler MA - 09/16/2024 11:04 AM EDT Attachment sent [facility]06-05-2025 Miscellaneous Notes* Telephone Encounter - Winsome Butler MA - 09/16/2024 11:04 AM EDT Attachment sent * Telephone Encounter - Winsome Butler MA - 09/14/2024 3:25 PM EDT Completed form taken to scanning. Once completed, will sent attachment * Telephone Encounter - Mara Hatch MA - 09/14/2024 12:58 PM EDT See [employer] message. Mara Hatch MA documented in this encounterOur [facility]06-03-2025 Telephone encounter Note * Telephone Encounter - Winsome Butler MA - 09/14/2024 3:25 PM EDT Completed form taken to scanning. Once completed, will sent attachment [facility]06-03-2025 Progress note Author Behzad Dorado [facility] Note Date/Time September 14, 2024 12:13 pm [facility] Medical Records Department [address] [place] [address] [place] [address] Progress Note 09/14/24 1058 MR#: [id number] Acct: [id number] Name: BEHZAD HAY Rep #:[id number] : 1940 84 From: Behzad VazquezModesto Estrada PCP: Tasha Deutsch, INSIDE SALES ADVISOR Status:ADM IN [facility] Subjective Subjective Day #2 Keflex for acute [...] Sl. Cloudy, Urine pH 6.0, Ur Specific [place] 1.015, Urine Protein 15 H, Urine Glucose [...] neurologic deficits. Charges/Coding Visit Charges Inpatient E&M: 63865 Subs Hosp L1 09/14/24 1213 <Electronically signed by Behzad Dorado DO> Behzad Dorado DO Cosigner Signature (if applicable): CC: ~ Signed [facility] Work Phone: 1(461) 938-618906-03-2025 Telephone encounter Note* Telephone Encounter - Mara Hatch MA - 09/14/2024 12:58 PM EDT See [employer] message. Mara Hatch MA [facility]06-03-2025 Progress note [facility] Medical Records Department [address] [place] [address] Progress Note 09/14/24 1058 MR#: [id number] Acct: [id number] Name: BEHZAD HAY Rep #:[id number] : 1940 84 From: Behzad Dorado DO PCP: Tasha Deutsch, INSIDE SALES ADVISOR Status:ADM IN Location: [place] [address]1 Subjective Subjective Day #2 Keflex for acute [...] Sl. Cloudy, Urine pH 6.0, Ur Specific [place]kom 1.015, Urine Protein 15 H, Urine Glucose (UA) Normal, Urine Ketones Negative, Urine Occult Blood 50 H, Urine Nitrite Positive H, Urine Bilirubin Negative, Urine Urobilinogen Normal, Ur Leukocyte Iznbgigj301 H, Urine RBC 0-5 SEEN, Urine WBC [...] neurologic deficits. Charges/Coding Visit Charges Inpatient E&M: 86861 Subs Hosp L1 09/14/24 1213 Behzad Dorado DO Cosigner Signature (if applicable): CC: ~ Signed [facility]06-02-2025 Progress note Author Behzad Dorado [facility] Note Date/Time September 13, 2024 1:43p m [facility] Medical Records Department [address] [place] [address] Progress Note 09/13/24 1158 MR#: [id number] Acct: [id number] Name: BEHZAD HAY Rep #:[id number] : 1940 84 From: Behzad Dorado DO PCP: Tasha Deutsch, INSIDE SALES ADVISOR Status:ADM IN Location: [place] [address] Subjective Subjective Afebrile VSS -blood pressure is [...] twice recently. Charges/Coding Visit Charges Inpatient E&M: 98651 Subs Hosp L1 09/13/24 1343 <Electronically signed by Behzad Dorado DO> Behzad Garciaalexus GOMEZ Cosigner Signature (if applicable): CC: ~ Signed [facility] Work Phone: 1(229) 190-544606-02-2025 Progress note [facility] Medical Records Department [address] [place] [address] Progress Note 09/13/24 1158 MR#: [id number] Acct: [id number] Name: BEHZAD HAY Rep #:[id number] : 1940 84 From: Behzad Dorado DO PCP: Tasha Deutsch, INSIDE SALES ADVISOR Status:ADM IN Location: [place] [address] Subjective Subjective Afebrile VSS -blood pressure is [...] twice recently. Charges/Coding Visit Charges Inpatient E&M: 86100 Subs Hosp L1 09/13/24 1343 Behzad Dorado DO Cosigner Signature (if applicable): CC: ~ Signed [facility]05-30-2025 Progress note Author Behzad [facility] Note Date/Time September 10, 2024 1:00p [facility] Medical Records Department [address] [place] [address] Progress Note 09/09/24 1415 MR#: [id number] Acct: [id number] Name: BEHZAD HAY Rep #:[id number] : 1940 84 From: Behzad Dorado DO PCP: Tasha Deutsch, INSIDE SALES ADVISOR Status:ADM IN Location: [place] [address] Subjective Subjective Behzad was seen on team [...] on Friday Charges/Coding Visit Charges Inpatient E&M: 44110 Subs Hosp L2 09/10/24 1300 <Electronically signed by Behzad Dorado DO> Behzad Dorado DO Cosigner Signature (if applicable): CC: ~ Signed [facility] Work Phone: 1(727) 644-588905-30-2025 Progress note [facility] Medical Records Department [address] [place] [address] Progress Note 09/09/24 1415 MR#: [id number] Acct: [id number] Name: BEHZAD HAY Rep #:[id number] : 1940 84 From: Behzad Dorado DO PCP: Tasha Deutsch, INSIDE SALES ADVISOR Status:ADM IN Location: [place] [address] Subjective Subjective Behzad was seen on team [...] on Friday Charges/Coding Visit Charges Inpatient E&M: 21985 Subs Hosp L2 09/10/24 1300 Behzad Dorado DO Cosigner Signature (if applicable): CC: ~ Signed [facility]05-27-2025 Progress note Author Behzad Dorado [facility] Note Date/Time September 07, 2024 4:28p m [facility] Medical Records Department [address] [place] [address] Progress Note 09/05/24 0848 MR#: [id number] Acct: [id number] Name: BEHZAD HAY Rep #:[id number] : 1940 84 From: Behzad Dorado DO PCP: Tasha Deutsch, INSIDE SALES ADVISOR Status:ADM IN Location: [place] [address] Subjective Subjective Afebrile VSS -blood pressure is [...] regimen today. Charges/Coding Visit Charges Inpatient E&M: 16915 Subs Hosp L1 09/07/241627 <Electronically signed by Behzad Dorado DO> Behzad Dorado DO Cosigner Signature (if applicable): CC: ~ Signed [facility] Work Phone: 1(632) 452-206705-27-2025 Progress note Author Behzad Dorado [facility] Note Date/Time September 07, 2024 4:26p m [facility] Medical Records Department [address] [place] [address] Progress Note 09/07/241619 MR#: [id number] Acct: [id number] Name: BEHZAD HAY Rep #:[id number] : 1940 84 From: Behzad Dorado DO PCP: Tasha Deutsch, INSIDE SALES ADVISOR Status:ADM IN Location: [place] [address] Subjective Subjective Afebrile VSS -is within goal. [...] discusswith family. Charges/Coding Visit Charges Inpatient E&M: 10160 Subs Hosp L1 09/07/24 5086 <Electronically signed by Behzad Dorado DO> Behzad Dorado DO Cosigner Signature (if applicable): CC: ~ Signed [facility] Work Phone: 1(995) 978-109805-27-2025 Progress note [facility] Medical Records Department [address] [place] [address] Progress Note 09/05/24 0848 MR#: [id number] Acct: [id number] Name: BEHZAD HAY Rep #:[id number] : 1940 84 From: Behzad Dorado DO PCP: Tasha Deutsch, INSIDE SALES ADVISOR Status:ADM IN Location: [place] [address] Subjective Subjective Afebrile VSS -blood pressure is [...] regimen today. Charges/Coding Visit Charges Inpatient E&M: 99188 [facility] Hosp L1 09/07/241627 Behzad Dorado DO Cosigner Signature (if applicable): CC: ~ Signed [facility]05-27-2025 Progress note [facility] Medical Records Department [address] [place] [address] Progress Note 09/07/24 162 MR#: [id number] Acct: [id number] Name: BEHZAD HAY Rep #:[id number] : 1940 84 From: Behzad Dorado DO PCP: Tasha Deutsch, INSIDE SALES ADVISOR Status:ADM IN Location: [place] [address] Subjective Subjective Afebrile VSS -is within goal. [...] discusswith family. Charges/Coding Visit Charges Inpatient E&M: 01704 Subs Hosp L1 09/07/24 1626 Behzad Dorado Cosigner Signature (if applicable): CC: ~ Signed [facility]05-23-2025 Progress note Author Behzad Dorado [facility] Note Date/Time September 03, 2024 6:45p m [facility] Medical Records Department [address] [place] [address] Progress Note 09/02/24 1038 MR#: [id number] Acct: [id number] Name: BEHZAD HAY Rep #:[id number] : 1940 84 From: Behzad Dorado DO PCP: Tasha Deutsch, INSIDE SALES ADVISOR Status:ADM IN Location: [place] [address] Subjective Subjective Behzad was seen on team [...] for today Charges/Coding Visit Charges Inpatient E&M: 94561 Subs Hosp L2 09/03/241844 <Electronically signed by Behzad Dorado DO> Behzad Dorado DO Cosigner Signature (if applicable): CC: ~ Signed ADDENDUM by Dr. Behzad Dorado DO on 09/03/24 at 1845 Addendum Orthostatic vital signs were negative. 09/03/241844 <Electronically signed by Behzad vaughan DO> Date _ Behzad Dorado DO Cosigner Signature (if applicable): Date cc: ~* Signed [facility] Work Phone: 1(210) 255-474205-23-2025 Progress note [facility] Medical Records Department [address] [place] [address] Progress Note 09/02/24 1038 MR#: [id number] Acct: [id number] Name: BEHZAD HAY Rep #:[id number] : 1940 84 From: Behzad Dorado DO PCP: Tasha Deutsch, INSIDE SALES ADVISOR Status:ADM IN Location: [place] [address] Subjective Subjective Behzad was seen on team [...] 1080. She had 1150 out. Overnight she uyh147 and and 700 out for a fluid [...] for today Charges/Coding Visit Charges Inpatient E&M: 09776 Subs Hosp L2 09/03/241844 Behzad Dorado DO Cosigner Signature (if applicable): CC: ~ Signed ADDENDUM by Dr. Behzad Dorado DO on 09/03/24 at 1845 Addendum Orthostatic vital signs were negative. 09/03/241844 ti DO> Date _ Behzad Dorado DO Coskariser Signature (if applicable): Date cc: ~* Signed [facility]05-22-2025 Progress note Author Behzad Dorado [facility] Note Date/Time September 02, 2024 10:38 am [facility] Medical Records Department [address] [place] [address] Progress Note 08/31/241624 MR#: [id number] Acct: [id number] Name: BHARTIBEHZAD Rep #:[id number] : 1940 84 From: Behzad Dorado DO PCP: Tasha Deutsch, INSIDE SALES ADVISOR Status:ADM IN Location: [place] [address] Subjective Subjective Afebrile VSS - Maintaining appropriate [...] the a.m Charges/Coding Visit Charges Inpatient E&M: 95092 Subs Hosp L1 09/02/24 1038 <Electronically signed by Behzad Dorado DO> Behzad Dorado DO Cosigner Signature (if applicable): CC: ~ Signed [facility] Work Phone: 1(421) 548-140005-22-2025 Progress note [facility] Medical Records Department [address] [place] [address] Progress Note 08/31/24 1625 MR#: [id number] Acct: [id number] Name: BEHZAD HAY Rep #:[id number] : 1940 84 From: Behzad Dorado DO PCP: Tasha Deutsch, INSIDE SALES ADVISOR Status:ADM IN Location: [place] [address] Subjective Subjective Afebrile VSS - Maintaining appropriate [...] the a.m Charges/Coding Visit Charges Inpatient E&M: 53630 Subs Hosp L1 09/02/24 1038 Behzad Boyer Signature (if applicable): CC: ~ Signed [facility]05-19-2025 Progress note Author Behzad Doardo [facility] Note Date/Time August 30, 2024 2:11p m [facility] Medical Records Department [address] [place] [address] Progress Note 08/30/24 0924 MR#: [id number] Acct: [id number] Name: BEHZAD HAY Rep #:[id number] : 1940 84 From: Behzad Weber Estrada PCP: Tasha Deutsch, INSIDE SALES ADVISOR Status:ADM IN Location: [place] [address] Subjective Subjective Afebrile VSS -blood pressure over [...] CBC now Charges/Coding Visit Charges Inpatient E&M: 37158 Subs Hosp L1 08/30/24 1409 <Electronically signed [...] Signature (if applicable): Date cc: ~* Signed [facility] Work Phone: 1(147) 884-251705-19-2025 Progress note [facility] Medical Records Department [address] [place] [address] Progress Note 08/30/24 0924 MR#: [id number] Acct: [id number] Name: BEHZAD HAY Rep #:[id number] : 1940 84 From: Behzad Dorado DO PCP: Tasha Deutsch, INSIDE SALES ADVISOR Status:ADM IN Location: [place] [address] Subjective Subjective Afebrile VSS -blood pressure over [...] CBC now Charges/Coding Visit Charges Inpatient E&M: 18830 Subs Hosp L1 08/30/24 1409 Behzad Dorado [...] Signature (if applicable): Date cc: ~* Signed [facility]05-19-2025 Telephone encounter Note* Telephone Encounter - Tasha Deutsch APRN.PROPERTY ADJUSTER - 08/30/2024 12:39 PM EDT Patient was admitted August 22, 2024 and discharged on August 23, 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 Patient has a past history of chronic renal failure stage IV but recent labs show GFR of 74?, History of A-fib, osteoarthritis, hypertension who presents to the emergency room [facility] August 16 with complaints of [...] Transferred to the acute inpatient rehab at [facility] August 22. She was to have physical therapy 3 hours daily. WBC 6, hemoglobin 10.9, platelets normal. Sodium 141, potassium 4.1, BUN 23, creatinine 0.78. GFR 74. Hemoglobin A1c 5.7. Calcium, phosphorus, magnesium normal. Liver function normal. Urine culture shows E. coli. Blood pressure 125/63 to 162/68. [facility]05-19-2025 Miscellaneous Notes* Telephone Encounter - Tasha Deutsch APRN.CNP - 08/30/2024 12:39 PM EDT Patient was admitted August 22, 2024 and discharged on August 23, 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 Patient has a past history of chronic renal failure stage IV but recent labs show GFR of 74?, History of A-fib, osteoarthritis, hypertension who presents to the emergency room [facility] August 16 with complaints of [...] Transferred to the acute inpatient rehab at [facility] August 22. She was to have physical therapy 3 hours daily. WBC 6, hemoglobin 10.9, platelets normal. Sodium 141, potassium 4.1, BUN 23, creatinine 0.78. GFR 74. Hemoglobin A1c 5.7. Calcium, phosphorus, magnesium normal. Liver function normal. Urine culture shows E. coli. Blood pressure 125/63 to 162/68. documented in [facility] Progress note Author Behzad Dorado [facility] Note Date/Time August 27, 2024 10:09 [facility] [address] [place] [address] Progress Note 08/26/24 1204 MR#: [id number] Acct: [id number] Name: BEHZAD HAY Rep #:[id number] : 1940 84 From: Behzad VazquezModesto Estrada DO PCP: Tasha Deutsch, INSIDE SALES ADVISOR Status:ADM IN Location: [place] [address] Subjective Subjective Behzad was seen on team [...] from rehab. Charges/Coding Visit Charges Inpatient E&M: 27667 Subs Hosp L2 08/27/24 1002 <Electronically signed by Behzad Dorado DO> Behzad Dorado DO Cosigner Signature (if applicable): CC: ~ Signed [facility] Work Phone: 1(251) 178-240405-16-2025 Progress note [facility] Medical Records Department [address] [place] [address] Progress Note 08/26/24 1204 MR#: [id number] Acct: [id number] Name: BEHZAD HAY Rep #:[id number] : 1940 84 From: Behzad Dorado DO PCP: Tasha Deutsch, INSIDE SALES ADVISOR Status:ADM IN Location: [place] [address] Subjective Subjective Behzad was seen on team [...] from rehab. Charges/Coding Visit Charges Inpatient E&M: 85533 Subs Hosp L2 08/27/24 1005 Behzad C. Sementi DO Cosigner Signature (if applicable): CC: ~ Signed [facility]05-15-2025 History and physical note Author Behzad Dorado [facility] Note Date/Time August 26, 2024 12:24 pm [facility] Medical Records Department [address] [place] [address] Post Admission Physician Austyn 08/23/24 1151 MR#: [id number] Acct: [id number] Name: BEHZAD HAY Rep #:[id number] : 1940 84 From: Behzad VazquezModesto Estrada PCP: Tasha Deutsch, INSIDE SALES ADVISOR Status:ADM IN Location: [place] [address] Admission Information Primary Diagnosis:: POST STROKE DEBILITY [...] Skin integrity and Medication Management Patient needs Veneer Puller/ Case Management for: Discharge Planning, Arranging Home [...] Cosigner Signature (if applicable): CC: ~ Signed [facility] Work Phone: 1(809) 775-684105-15-2025 History and physical note Author Behzad Dorado [facility] Note Date/Time August 26, 2024 12:02 pm [facility] Medical Records Department [address] [facility] [place] [address] History & Physical Exam 08/23/24 1126 MR#: [id number] Acct: [id number] Name: BEHZAD HAY Rep #:[id number] : 1940 84 From: Behzad Dorado DO PCP: Tasha Deutsch, INSIDE SALES ADVISOR Status:ADM IN Location: [place] [address] HPI - General General Date of Admission: 08/22/24 Date of Service: 08/23/24 Chief Complaint: POST STROKE DEBILITY HPI Narrative BEHZAD HAY, is a 84-year-old F with a past medical history of chronic renal failure stage IV (recent lab with GFR of 74?), history of atrial fibrillation, osteoarthritis and hypertension who presented to the emergency department at [facility] on 08/16/2024 with complaints of [...] to the acute inpatient rehab unit at [facility] on 08/22/2024 for 3 hours [...] living. She needed assistance with cooking and make up girl. [facility] Medical History HTN (hypertension) Thoracic kyphosis Cystitis [...] Behzad Dorado DO) [facility] Sm[facility] Status: Never smoker alcohol intake: [...] sensory loss 9. Best Language: 1 - Ioxg-md-hlcuvhvs aphasia; (trouble word finding and also trouble following commands. Able to read all the words on NIHSS scoring and allthe sentences. able to tell me what was going on in the picture and name all the objects.) 10. Dysarthria: 1 = Udrp-aj-abblspwv dysarthria; 11. Extinction and Inattention: 1 - [...] for UTI. Charges/Coding Visit Charges Inpatient E&M: 24101 Init Hosp L3 08/26/24 1202 <Electronically signed by Behzad Dorado DO> Cosigner Signature (if applicable): CC: GARFIELD Deutsch; Dr. Behzad Dorado, DO~ Signed [facility] Work Phone: 1(356) 413-696705-15-2025 History and physical note [facility] Medical Records Department [address] [place] [address] Post Admission Physician Austyn 08/23/24 1151 MR#: [id number] Acct: [id number] Name: BEHZAD HAY Rep #:[id number] : 1940 84 From: Behzad Dorado DO PCP: Tasha Deutsch, INSIDE SALES ADVISOR Status:ADM IN Location: [place] [address] Admission Information Primary Diagnosis:: POST STROKE DEBILITY [...] Skin integrity and Medication Management Patient needs Veneer Puller/ Case Management for: Discharge Planning, Arranging Home [...] Cosigner Signature (if applicable): CC: ~ Signed [facility]05-15-2025 History and physical note [facility] Medical Records Department [address] [place] [address] History & Physical Exam 08/23/24 1126 MR#: [id number] Acct: [id number] Name: BEHZAD HAY Rep #:[id number] : 1940 84 From: Behzad Dorado DO PCP: Tasha Deutsch, INSIDE SALES ADVISOR Status:ADM IN Location: [address] HPI - General General Date of Admission: 08/22/24 Date of Service: 08/23/24 Chief Complaint: POST STROKE DEBILITY HPI Narrative BEHZAD HAY, is a 84-year-old F with a past medical history of chronic renal failure stage IV (recent lab with GFR of 74?), history of atrial fibrillation, osteoarthritis and hypertension who presented to the emergency department at [facility] on 08/16/2024 with complaints of [...] transferred to the acuteinpatient rehab unit at [facility] on 08/22/2024 for 3 hours [...] living. She needed assistance with cooking and make up girl. [facility] Medical History HTN (hypertension) Thoracic kyphosis Cystitis [...] Behzad Dorado DO) household members[facility] Smoking Status: Never smoker alcohol intake: [...] sensory loss 9. Best Language: 1 - Emdr-rp-cuvtoztk aphasia; (trouble word finding and also trouble following commands. Able to read all the words on NIHSS scoring and allthe sentences. able to tell me what was going on in the picture and name all the objects.) 10. Dysarthria: 1 = Shps-pm-vqpexpqc dysarthria; 11. Extinction and Inattention: 1 - [...] for UTI. Charges/Coding Visit Charges Inpatient E&M: 92004 Init Hosp L3 08/26/24 1202 Cosigner Signature (if applicable): CC: GARFIELD Deutsch; Dr. Behzad Dorado, DO~ Signed [facility]05-12-2025 Telephone encounter Note* Telephone Encounter - Tasha Deutsch APRN.[facility] - 08/23/2024 12:04 PM EDT Patient was discharged from [facility] on August 22, 2024 for [...] mg daily. Patient was sent to rehab. [facility]05-12-2025 Miscellaneous Notes* Telephone Encounter - Tasha Deutsch APRN.CNP - 08/23/2024 12:04 PM EDT Patient was discharged from [facility] on August 22, 2024 for [...] was [facility]. [facility]05[facility]25 Discharge summary Author Mara Mar [facility] Note Date/Time August 22, 2024 11:20 am [facility] Medical Records Department [address] [place] [address] Discharge Summary 08/22/24 0726 MR#: [id number] Acct: [id number] Name: BEHZAD HAY Rep #:[id number] : 1940 84 From: Mara Mar DO PCP: GARFIELD Maldonado Status:ADM IN Location: [place] [id number] Providers Date of Admission: 08/18/24 Date [...] who presented to the emergency department at [facility] on 08/18/2024 due to patient's [...] Rehab Unit/Facility Charges/Coding Visit Charges Inpatient E&M: 84041 Disch Hosp >30min 08/22/24 1120 <Electronically signed by Mara Mar DO> Cosigner Signature (if applicable): CC: GARFIELD Deutsch; Dr. Mara Mar DO; Dr. Swapnil Balderrama MD; Dr. Lamonte Foster MD~ Signed [facility] Work Phone: 1(221) 296-197605-11-2025 Discharge summary [facility] Medical Records Department [address] [place] [address] Discharge Summary 08/22/24 0726 MR#: [id number] Acct: [id number] Name: BEHZAD HAY Rep #:[id number] : 1940 84 From: Mara Mar DO PCP: GARFIELD Maldonado Status:ADM IN [facility] Prov[facility] Date of Admission: 08/18/24 [...] who presented to the emergency department at [facility] on 08/18/2024 due to patient's [...] PO DAILY Referrals / Follow Up: Suppan,Tasha, INSIDE SALES ADVISOR [Primary Care Provider] - See Referral Note [...] Rehab Unit/Facility Charges/Coding Visit Charges Inpatient E&M: 36786 Disch Hosp >30min 08/22/24 1120 Cosigner Signature (if applicable): CC: GARFIELD Deutsch; Dr. Mara Mar DO; Dr. Swapnil Balderrama MD; Dr. Lamonte Foster MD~ Signed [facility]05-11-20[facility] Progress note Author Mara Mar [facility] Note Date/Time August 21, 2024 1:43p [facility] Medical Records Department [address] [place] [address] Progress Note - Hospitalist 08/21/24 1327 MR#: [id number] Acct: [id number] Name: BEHZAD HAY Rep #:[id number] : 1940 84 From: Mara Mar DO PCP: GARFIELD Maldonado Status:ADM IN Location: [place] [address] Reason for Visit Reason for Visit: No [...] 65% and no valvular disease - TC 189/PVE176/HDL 62/trigs of 75 - A1c 5.7 - [...] Full code Charges/Coding Visit Charges Inpatient E&M: 43747 Subs Hosp L2 NIHSS NIHSS Nursing Documentation NIHSS Nursing Documentation: NIHSS: Ischemic Stroke/TIA Start: 08/18/24 16:47 Text: For PCU Patients: NIH and Neuro Check every 4 Status: Active hours, PRN and with change in RN caregiver. Freq: [id number] Protocol: Activity Type Activity Date Activity User E-sign Co-sign Detail Recorded Client Recorded Date Recorded By Document 08/21/24 10:00 EM [id number] 08/21/24 10:37 EM 08/21/24 10:00 NIH Stroke [...] Cosigner Signature (if applicable): CC: ~ Signed [facility] Work Phone: 1(707) 159-427505-10-2025 Progress note [facility] Medical Records Department [address] [place] [address] Progress Note - Hospitalist 08/21/24 1327 MR#: [id number] Acct: [id number] Name: BEHZAD HAY Rep #:[id number] : 1940 84 From: Mara Mar DO PCP: Tasha Deutsch, INSIDE SALES ADVISOR Status:ADM IN Location: [place] [address] Reason for Visit Reason for Visit: No [...] 65% and no valvular disease - TC 189/IFE360/HDL 62/trigs of 75 - A1c 5.7 - [...] Full code Charges/Coding Visit Charges Inpatient E&M: 23412 Subs Hosp L2 NIHSS NIHSS Nursing Documentation NIHSS Nursing Documentation: NIHSS: Ischemic Stroke/TIA Start: 08/18/24 16:47 Text: For PCU Patients: NIH and Neuro Check every 4 Status: Active hours, PRN and with change in RN caregiver. Freq: [id number] Protocol: Activity Type Activity Date Activity User E-sign Co-sign Detail Recorded Client Recorded Date Recorded By Document 08/21/24 10:00 EM [id number] 08/21/24 10:37 EM 08/21/24 10:00 NIH Stroke [...] Cosigner Signature (if applicable): CC: ~ Signed [facility]05-09-2025 Progress note Author Isa Cruz [facility] Note Date/Time August 20, 2024 2:12pm [facility] Medical Records Department [address] [place] [address] Progress Note - Neurology 08/20/24 1401 MR#: [id number] Acct: [id number] Name: BEHZAD HAY Rep #:[id number] : 1940 84 From: Isa Cruz MD PCP: Tasha Deutsch, INSIDE SALES ADVISOR Status:ADM IN Location: [place] [address] Objective Data Objective Data Vital Signs: Vital [...] and with change in RN caregiver. Freq: V9PIIYT Protocol: Activity Type Activity Date Activity User E-sign Co-sign Detail Recorded Client Recorded Date Recorded By Document 08/20/24 10:23 DS [id number] 08/20/24 10:26 DS 08/20/24 10:23 NIH Stroke [...] sensory loss 9. Best Language: 1 - Fprq-qh-zkrusgjo aphasia; 10. Dysarthria: 1 = Sdwl-hd-ujhwrbnn dysarthria; 11. Extinction and Inattention: 0 - No abnormality Total: 2 08/20/24 1412 <Electronically signed by Isa Cruz MD> Cosigner Signature (if applicable): CC: ~ Signed [facility] Work Phone: 1(422) 708-752805-09-2025 Progress note [facility] Medical Records Department [address] [place] [address] Progress Note - Neurology 08/20/24 1401 MR#: [id number] Acct: [id number] Name: BEHZAD HAY Rep #:[id number] : 1940 84 From: Isa Cruz MD PCP: Tasha Deutsch, INSIDE SALES ADVISOR Status:ADM IN Location: [place] [address] Objective Data Objective Data Vital Signs: Vital [...] am and Dc DAPT HTN: Aim normotension fci. HLD: Statin to keep LDL <70. For [...] and with change in RN caregiver. Freq: [id number] Protocol: Activity Type Activity Date Activity User E-sign Co-sign Detail Recorded Client Recorded Date Recorded By Document 08/20/24 10:23 DS [id number] 08/20/24 10:26 DS 08/20/24 10:23 NIH Stroke [...] sensory loss 9. Best Language: 1 - Rwzf-rh-uezuyefs aphasia; 10. Dysarthria: 1 = Vcct-xf-hfpefdjg dysarthria; 11. Extinction and Inattention: 0 - No abnormality Total: 2 08/20/24 1412 Cosigner Signature (if applicable): CC: ~ Signed [facility]05-09-2025 Progress note Author Mara Mar [facility] Note Date/Time August 20, 2024 11:51a m [facility] Medical Records Department [address] [place] [address] Progress Note - Hospitalist 08/20/24 1140 MR#: [id number] Acct: [id number] Name: BEHZAD HAY Rep #:[id number] : 1940 84 From: Mara Mar DO PCP: Tasha Deutsch, INSIDE SALES ADVISOR Status:ADM IN Location: [place] [id number]- 1 Reason for Visit Reason for Visit: [...] 65% and no valvular disease - TC 189/CUQ398/HDL 62/trigs of 75 - A1c 5.7 - [...] Full code Charges/Coding Visit Charges Inpatient E&M: 31343 Subs Hosp L1 NIHSS NIHSS Nursing Documentation NIHSS Nursing Documentation: NIHSS: Ischemic Stroke/TIA Start: 08/18/24 16:47 Text: For PCU Patients: NIH and Neuro Check every 4 Status: Active hours, PRN and with change in RN caregiver. Freq: [id number] Protocol: Activity Type Activity Date Activity User E-sign Co-sign Detail Recorded Client Recorded Date Recorded By Document 08/20/24 10:23 DS [id number] 08/20/24 10:26 DS 08/20/24 10:23 NIH Stroke [...] Cosigner Signature (if applicable): cc: ~* Signed [facility] Work Phone: 1(853) 397-717705-09-2025 Progress note [facility] Medical Records Department [address] [place] [address] Progress Note - Hospitalist 08/20/24 1140 MR#: [id number] Acct: [id number] Name: BEHZAD HAY Rep #:[id number] : 1940 84 From: Mara Mar DO PCP: Tasha Deutsch, INSIDE SALES ADVISOR Status:ADM IN Location: [place] [address] Reason for Visit Reason for Visit: Confusion/dysarthria/dysmetria [...] 65% and no valvular disease - TC 189/KBJ436/HDL 62/trigs of 75 - A1c 5.7 - [...] Full code Charges/Coding Visit Charges Inpatient E&M: 83980 Subs Hosp L1 NIHSS NIHSS Nursing Documentation NIHSS Nursing Documentation: NIHSS: Ischemic Stroke/TIA Start: 08/18/24 16:47 Text: For PCU Patients: NIH and Neuro Check every 4 Status: Active hours, PRN and with change in RN caregiver. Freq: [id number] Protocol: Activity Type Activity Date Activity User E-sign Co-sign Detail Recorded Client Recorded Date Recorded By Document 08/20/24 10:23 DS [id number] 08/20/24 10:26 DS 08/20/24 10:23 NIH Stroke [...] unit and then will need pre-CERT from [facility] prior to discharge 08/20/24 1151 Cosigner Signature (if applicable): cc: ~* Signed [facility]05-08-2025 Progress note Author Mara Mar [facility] Note Date/Time August 19, 2024 4:41pm [facility] Medical Records Department [address] [place] [address] [place] [address] Progress Note - Hospitalist 08/19/24 3083 MR#: [id number] Acct: [id number] Name: BEHZAD HAY Rep #:[id number] : 1940 84 From: Mara Mar DO PCP: Tasha Deutsch, INSIDE SALES ADVISOR Status:ADM IN Location: [place] [address] Reason for Visit Reason for Visit: Confusion/dysarthria/dysmetria [...] (Auto) 67.8, Lymph % (Auto) 18.3 L, [place] % (Auto) 8.5, Eos % (Auto) 3.9, [...] 6:39 pm with readback verification. [facility] Echocardiogram 08/18/24 13:14 Interpretation Summary The [...] 65% and no valvular disease - TC 189/IVA898/HDL 62/trigs of 75 - A1c 5.7 - [...] Full code Charges/Coding Visit Charges Inpatient E&M: 68793 Subs Hosp L2 NIHSS NIHSS Nursing Documentation NIHSS Nursing Documentation: NIHSS: Ischemic Stroke/TIA Start: 08/18/24 16:47 Text: For PCU Patients: NIH and Neuro Check every 4 Status: Active hours, PRN and with change in RN caregiver. Freq: V8OCAMA Protocol: Activity Type Activity Date Activity User E-sign Co-sign Detail Recorded Client Recorded Date Recorded By Document 08/19/24 15:20 ELISE [id number] 08/19/24 15:32 ELISE 08/19/24 15:20 NIH Stroke [...] Cosigner Signature (if applicable): CC: ~ Signed [facility] Work Phone: [phone]) 954-196905-08-2025 Discharge summary Author Fawad Cordon [facility] Note Date/Time August 19, 2024 2:57pm [facility] Medical Records Department [address] [place] [address] Emergency Department Summary 08/18/24 MR#: [id number] Acct: [id number] Name: BEHZAD HAY Rep #:[id number] : 1940 84 From: Fawad Last PCP: Tasha Deutsch, INSIDE SALES ADVISOR Status:ADM IN Location: [address] History of Present Illness Chief Complaint: [...] last night but did not injure herself. [facility] Medical History Osteoarthritis CKD (chronic kidney [...] 79.2 H Lymph % (Auto) 10.9 L [place]land % (Auto) 7.5 Eos % (Auto) 0.7 [...] Sl. Cloudy Urine pH 7.0 Ur Specific [place] 1.005 Urine Protein 30 H Urine Glucose [...] status), Stroke Disposition Disposition: Acute Care Hospital [facility] NIHSS NIHSS 1a. Level of Consciousness: [...] No aphasia; normal 10. Dysarthria: 1 = Eqmd-xr-indqebyo dysarthria; 11. Extinction and Inattention: 0 - [...] No aphasia; normal 10. Dysarthria: 1 = Hprh-mq-njbaczss dysarthria; 11. Extinction and Inattention: 0 - No abnormality Total: 3 What to do if you have Problems For any increased pain, shortness of breath, bleeding, nausea or vomiting, chestpain, or any unexpected problems, contact your Primary Care Provider. Call [employer] [facility] ([phone]) or report to the closest Emergency Room. Call 911 if necessary. 08/19/24 1457 <Electronically signed by Fawad Cordon DO> Cosigner Signature (if applicable): CC: INSIDE SALES ADVISOR Tasha Deutsch ~ Signed [facility] Work Phone: [phone]) 275-541605-08-2025 Progress note [facility] Medical Records Department [address] [place] [address] Progress Note - Hospitalist 08/19/24 1627 MR#: [id number] Acct: [id number] Name: BEHZAD HAY Rep #:[id number] : 1940 84 From: Mara Mar DO PCP: Tasha Deutsch, INSIDE SALES ADVISOR Status:ADM IN Location: [place] [address] Reason for Visit Reason for Visit: Confusion/dysarthria/dysmetria [...] (Auto) 67.8, Lymph % (Auto) 18.3 L, [place]land % (Auto) 8.5, Eos % (Auto) 3.9, [...] 6:39 pm with readback verification. Reading Location: [facility] Echocardiogram 08/18/24 13:14 Interpretation Summary The LV [...] 65% and no valvular disease - TC 189/EDG030/HDL 62/trigs of 75 - A1c 5.7 - [...] Full code Charges/Coding Visit Charges Inpatient E&M: 65683 Subs Hosp L2 NIHSS NIHSS Nursing Documentation NIHSS Nursing Documentation: NIHSS: Ischemic Stroke/TIA Start: 08/18/24 16:47 Text: For PCU Patients: NIH and Neuro Check every 4 Status: Active hours, PRN and with change in RN caregiver. Freq: [id number] Protocol: Activity Type Activity Date Activity User E-sign Co-sign Detail Recorded Client Recorded Date Recorded By Document 08/19/24 15:20 ELISE [id number] 08/19/24 15:32 ELISE 08/19/24 15:20 NIH Stroke [...] Cosigner Signature (if applicable): CC: ~ Signed [facility]05-08-2025 Consult note Author Isa Cruz [facility] Note Date/Time August 19, 2024 2:17pm [facility] Medical Records Department [address] [place] [address] Consultation - Neurology 08/19/24 1355 MR#: [id number] Acct: [id number] Name: BEHZAD HAY Rep #:[id number] : 1940 84 From: Isa Cruz MD PCP: Tasha Deutsch, INSIDE SALES ADVISOR Status:ADM IN Location: [place] [address] Assessment and Plan: Stroke Assessment/Plan BEHZAD HAY [...] keep LDL <70. Permissive hypertension acutely and fci will need it under control PT OT, speech, swallow evaluation Stroke education Thanks for the consultation. Spent 70 min in evaluation and management of the patient. HPI Consult Data Date of Consult: 08/19/24 HPI Narrative HPI Narrative: BEHZAD HAY, is a 84 F with a history of atrial fibrillation who presents tothe emergency department at [facility] on 08/18/2024 due to patient's [...] right leg and was havingword finding difficulty. [facility] Medical History (Updated 08/18/24 @ 21:46 by [...] (Auto) 67.8, Lymph % (Auto) 18.3 L, [place] % (Auto) 8.5, Eos % (Auto) 3.9, [...] 6:39 pm with readback verification. Reading Location: [facility] Echocardiogram 08/18/24 13:14 Interpretation Summary The LV [...] intracranial vasculature. 4. Findings along the distal ZPEH-byfqmlz-wjca-RIGHT ICAs suspicious for vasculopathy such as fibromuscular [...] telephone to Tito 08/18/2024 at 12:17 pm [facility] Reading Location: [id number] Active Medications Active Medications Active Medications: Current [...] mls @ 15 mls/hr 08/18/24 16:00 IV .[id number] PRN Saline Flush Sodium Chloride 250 mls @ 15 mls/hr 08/18/24 16:00 IV .R24A53M PRN Additional IVPB Infusion Ceftriaxone Sodium 1 [...] and with change in RN caregiver. Freq: [id number] Protocol: Activity Type Activity Date Activity User E-sign Co-sign Detail Recorded Client Recorded Date Recorded By Document 08/19/24 11:21 ELISE [id number] 08/19/24 11:53 ELISE 08/19/24 11:21 NIH Stroke [...] sensory loss 9. Best Language: 1 - Lelx-kr-mmjfvkwh aphasia; 10. Dysarthria: 1 = Vwko-ah-ztnmsoav dysarthria; 11. Extinction and Inattention: 0 - No abnormality Total: 3 08/19/24 1417 <Electronically signed by Isa Cruz MD> Cosigner Signature (if applicable): CC: INSIDE SALES ADVISOR Tasha Deutsch~ Signed [facility] Work Phone: 1(802) 836-103005-08-2025 Discharge summary [facility] Medical Records Department [address] [place] [address] Emergency Department Summary 08/18/24 MR#: [id number] Acct: [id number] Name: BEHZAD HAY Rep #:[id number] : 1940 84 From: Fawad Last PCP: Tasha Deutsch, INSIDE SALES ADVISOR Status:ADM IN Location: [place] [address] HPI History of Present Illness Chief Complaint: [...] last night but did not injure herself. [facility] Medical History Osteoarthritis CKD (chronic kidney [...] oriented x3 and no sensory deficits noted [place] Coma Scale: document GCS findings Spontaneous Obeys [...] 79.2 H Lymph % (Auto) 10.9 L [place]land % (Auto) 7.5 Eos % (Auto) 0.7 [...] Sl. Cloudy Urine pH 7.0 Ur Specific [place]kom 1.005 Urine Protein 30 H Urine Glucose [...] status), Stroke Disposition Disposition: Acute Care Hospital [facility] NIHSS NIHSS 1a. Level of Consciousness: [...] No aphasia; normal 10. Dysarthria: 1 = Gsds-eb-xzkdfqju dysarthria; 11. Extinction and Inattention: 0 - [...] No aphasia; normal 10. Dysarthria: 1 = Bdch-em-hebdfzro dysarthria; 11. Extinction and Inattention: 0 - No abnormality Total: 3 What to do if you have Problems For any increased pain, shortness of breath, bleeding, nausea or vomiting, chestpain, or any unexpected problems, contact your Primary Care Provider. Call [facility] ([phone]) or report tothe closest Emergency Room. Call 911 if necessary. 08/19/24 1457 Cosigner Signature (if applicable): CC: INSIDE SALES ADVISOR Tasha Deutsch ~ Signed [facility]05-08-2025 Consult note [facility] Medical Records Department [address] [place] [address] Consultation - Neurology 08/19/24 1355 MR#: [id number] Acct: [id number] Name: BEHZAD HAY Rep #:[id number] : 1940 84 From: Isa Cruz MD PCP: Tasha Deutsch, INSIDE SALES ADVISOR Status:ADM IN Location: [place] [address] Assessment and Plan: Stroke Assessment/Plan BEHZAD HAY [...] keep LDL <70. Permissive hypertension acutely and fci will need it under control PT OT, speech, swallow evaluation Stroke education Thanks for the consultation. Spent 70 min in evaluation and management of the patient. HPI Consult Data Date of Consult: 08/19/24 HPI Narrative HPI Narrative: BEHZAD HAY, is a 84 F with a history of atrial fibrillation who presents tot emergency department at [facility] on 08/18/2024 due to patient's [...] right leg and was havingword finding difficulty. [facility] Medical History (Updated 08/18/24 @ 21:46 by [...] (Auto) 67.8, Lymph % (Auto) 18.3 L, [place]land % (Auto) 8.5, Eos % (Auto) 3.9, [...] 6:39 pm with readback verification. [facility] Echocardiogram 08/18/24 13:14 Interpretation Summary The LV [...] intracranial vasculature. 4. Findings along the distal ARPC-xescwzq-ojxh-RIGHT ICAs suspicious for vasculopathy such as fibromuscular [...] telephone to Tito 08/18/2024 at 12:17 pm [facility] Reading Location: [id number] Active Medications Active Medications Active Medications: Current [...] mls @ 15 mls/hr 08/18/24 16:00 IV .[id number] PRN Saline Flush Sodium Chloride 250 mls @ 15 mls/hr 08/18/24 16:00 IV .G87A95I PRN Additional IVPB Infusion Ceftriaxone Sodium 1 [...] and with change in RN caregiver. Freq: U6LMBOO Protocol: Activity Type Activity Date Activity User E-sign Co-sign Detail Recorded Client Recorded Date Recorded By Document 08/19/24 11:21 ELISE [id number] 08/19/24 11:53 ELISE 08/19/24 11:21 NIH Stroke [...] sensory loss 9. Best Language: 1 - Ibud-wu-ygoriugb aphasia; 10. Dysarthria: 1 = Okik-vy-cmxtdtdd dysarthria; 11. Extinction and Inattention: 0 - No abnormality Total: 3 08/19/24 1417 Cosigner Signature (if applicable): CC: GARFIELD Deutsch~ Signed [facility]05-07-2025 History and physical note Author Mara Mar [facility] Note Date/Time August 18, 2024 9:47pm [facility] Medical Records Department [address] [place] [address] H&P Exam - Hospitalist 08/18/24 1305 MR#: [id number] Acct: [id number] Name: BEHZAD HAY Rep #:[id number] : 1940 84 From: Mara Mar DO PCP: Tasha Deutsch, INSIDE SALES ADVISOR Status:ADM JENNY Location: [place] [address] HPI - General General Date of Admission: 08/18/24 Date of Service: 08/18/24 Chief Complaint: Confusion/dysarthria/dysmetria right-sided HPI Narrative BEHZAD HAY, is a 84 F who presented to the emergency department at [facility] on 08/18/2024 due to patient's [...] on ceftriaxone and urine culture was sent. [facility] Medical History (Updated 08/18/24 @ 21:46 by [...] 79.2 H, Lymph % (Auto) 10.9 L, Highland % (Auto) 7.5, Eos % (Auto) 0.7, [...] Sl. Cloudy, Urine pH 7.0, Ur Specific Inkom 1.005, Urine Protein 30 H, Urine Glucose [...] Full code Charges/Coding Visit Charges Inpatient E&M: 36666 Init Hosp L2 08/18/24 3138 <Electronically signed by Mara Mar DO> Cosigner Signature (if applicable): CC: GARFIELD Deutsch; Dr. Mara Mar DO~ Signed [facility] Work Phone: 1(823) 648-573805-07-2025 History and physical note [facility] Medical Records Department [address] [place] [address] H&P Exam - Hospitalist 08/18/24 1305 MR#: [id number] Acct: [id number] Name: BEHZAD HAY Rep #:[id number] : 1940 84 From: Mara Mar DO PCP: Tasha Deutsch, INSIDE SALES ADVISOR Status:ADM JENNY Location: [place] [address] HPI - General General Date of Admission: 08/18/24 Date of Service: 08/18/24 Chief Complaint: Confusion/dysarthria/dysmetria right-sided HPI Narrative BEHZAD HAY, is a 84 F who presented to the emergency department at [facility] on 08/18/2024 due to patient's [...] on ceftriaxone and urine culture was sent. [facility] Medical History (Updated 08/18/24 @ 21:46 by [...] 79.2 H, Lymph % (Auto) 10.9 L, Highland % (Auto) 7.5, Eos % (Auto) 0.7, [...] 0.13, AST 36 H, ALT 24, Alkaline Mglylcwpkgp24, Total Protein 7.6, Albumin 4.4, Globulin 3.2, Ethyl Alcohol < 10.1 08/18/24 11:35: Urine Color Yellow, Urine Clarity Sl. Cloudy, Urine pH 7.0, Ur Specific Inkom 1.005, Urine Protein 30 H, Urine Glucose (UA) Normal, Urine Ketones Negative, Urine Occult Blood 50 H, Urine Nitrite Positive H, Urine Bilirubin Negative, Urine Urobilinogen Normal, Ur Leukocyte Rzrlgosc300 H, Urine RBC 0 SEEN, Urine WBC [...] Full code Charges/Coding Visit Charges Inpatient E&M: 32439 Init Hosp L2 08/18/247 Cosigner Signature (if applicable): CC: GARFIELD Deutsch; Dr. Mara Mar, DO~ Signed [facility]05-07-2025 Evaluation note* Diagnosis Onset Date Resolution Status Admit Date Acute UTI acute August 18, 2024 1:06pm AMS (altered mental status) acute August 18, 2024 1:06pm Stroke acute August 18, 2024 1:06pm [facility] Work Phone: 1(385) 976-287205-07-2025 Evaluation note* Diagnosis Onset Date Resolution Status Admit Date Abnormal urinalysis acute August 182024 1:06pm Dysarthria acute August 18, 2024 1:06pm Dysmetria acute August 18, 2024 1:06pm Acute UTI deleted August 18, 2024 1:06pm AMS (altered mental status) deleted August 18, 2024 1:06pm Stroke deleted August 18, 2024 1:06pm [facility] Work Phone: 1(977) 841-376805-07-2025 Evaluation note* Diagnosis Onset Date Resolution Status [...] 1:55pm HTN (hypertension) chronic August 222024 1:55pm [facility] Work Phone: 1(225) 702-398605-07-2025 Evaluation note* Diagnosis Onset Date Resolution Status [...] 2024 1:55pm Thoracic kyphosis inactive August 1:55pm [facility] Work Phone: 1(136) 530-773705-07-2025 Evaluation note* Diagnosis Onset Date Resolution Status [...] atrial fibrillation acute October 04, 2024 8:55am [place] [employer] Work Phone: 1(390) 130-485005-07-2025 Evaluation note* Diagnosis Onset Date Resolution Status [...] fibrillation chron ic October 12, 2024 9:13am [facility] Work Phone: 1([phone]) 617-752605-07-2025 Radiology Diagnostic study note [facility] Imaging Services [address] [place] [address] [id number] STROKE CTA Head AND Neck W/Con MR#: [id number] Acct: [id number] Name: BEHZAD HAY Rep #: [id number] : 1940 F 84 From: Maday Meléndez MD PCP: Tasha Deutsch, INSIDE SALES ADVISOR Status: REG ER Study:STROKE CTA Head AND Neck W/Con Date of Exam: 08/18/24 Exam# [id number] Ordering Dr: Eliana Mar DO PROCEDURE: STROKE [...] M2/M3 and distal A2/A3. Posterior circulation: Focal pfenyzij-pb-drcqvd stenosis of proximal RIGHT PICA. Tortuous basilar [...] intracranial vasculature. 4. Findings along the distal IBCY-mwjnqtw-mtns-RIGHT ICAs suspicious for vasculopathy such as fibromuscular dysplasia, although notably fibromuscular dysplasia would be somewhat unusual in this demographic. 5. 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 Recommend clinical follow-up. 6. Additional description as above. Red Alert: #1-2 above The critical information above was relayed directly by me by telephone to [facility] 08/18/2024 at 12:17 pm [facility] Reading Location: [id number] CC: INSIDE SALES ADVISOR Tasha Deutsch; Dr. Mara Mar, ~ Jigmaker: Signed [facility]03-24-2025 Telephone encounter Note* Telephone Encounter - Tasha Deutsch APRN.CNP - 07/05/2024 1:03 PM EDT The following approved medication requests have been transmitted electronically. Requested Prescriptions Pending Prescriptions Disp Refills lisinopril (ZESTRIL) 30 mg tablet 90 tablet 3 Sig: Take 1 tablet by mouth once daily. Tasha Deutsch APRN.CNP [facility]03-24-2025 Miscellaneous Notes* Telephone Encounter - Tasha [...] 05, 2024 9:03 AM documented in this encounterOur [facility]03-24-2025 Telephone encounter Note * Telephone Encounter [...] Tenisha Quarles July 05, 2024 9:03 AM [facility]01-13-2025 Telephone encounter Note* Telephone Encounter - Winsome Butler MA - 04/26/2024 4:49 PM EST Patient was made aware of the results. Patient verbalizes understanding. Winsome Butler Ma [facility]01-13-2025 Miscellaneous Notes* Telephone Encounter - Winsome [...] it for 10 days. documented in this encounterOur Lady Of Mercy Hospital01-13-2025 Telephone encounter Note * Telephone Encounter [...] need to take it for 10 days. [facility]01-13-2025 Instructions* Patient Instructions* Tasha Deutsch APRN.CNP - 04/26/2024 10:46 AM EST 1) Check labs 2) Duoderm applied to left foot 3) Consider sheep's wool for left foot 4) Follow up in 6 months documented in this encounterOur Lady Of Mercy Hospital01-13-2025 NoteHNO ID: [id number] Author: TASHA DEUTSCH APRN.CNP Service: ? Author [...] Hiatal hernia History of esophagogastroduodenoscopy (EGD) 09/23/2014 [facility]: All normal HTN (hypertension) Hyperlipidemia, mixed [...] DX W/COLLJ SPEC WHEN PFRMD 09/01/[address] ABDOMEN AND PELVIS W/CONT 01/24/2014 localized [...] LENS Left 02/17/2003 REVJ TOT HIP [facility] W/WO AGRFT/ALGRFT Right 05/30/2011 ROTATOR CUFF REPAIR Right 2013 R rotator cuff repair TONSILLECTOMY HX TONSILLECTOMY PRIMARY/SECONDARY Tonsillectomy TOTAL HIP JOINT REPLACEMENT Left 10/03/2014 ALLERGIES Adhesive Tape (Rosins), Bactrim [Sulfamethoxazole-Trimethoprim], Macrobid [Nitrofurantoin Monohyd/M-Cryst], and Olsefly-Acl-Cpc Reductase Inhibitors MEDICATIONS Current Outpatient Medications Medication [...] Brother age 76 other (CVA) Brother other (PAINT BRUSH MAKER shunt) Brother Hypertension Sister Diabetes Sister age [...] No history of dysuria (more content not included)...[facility]01-13-2025 History of Present illness Narrative* Tasha Deutsch APRN.[facility] - 04/26/2024 10:21 AM EST This [...] Hiatal hernia History of esophagogastroduodenoscopy (EGD) 09/23/2014 [facility]: All normal HTN (hypertension) Hyperlipidemia, mixed [...] Tape (Rosins), Bactrim [Sulfamethoxazole-Trimethoprim], Macrobid [NitrofurantoinMonohyd/M-Cryst], and Xgzfhqe-Zvi-Uxf Reductase Inhibitors MEDICATIONS Current Outpatient Medications Medication [...] Brother age 76 other (CVA) Brother other (PAINT BRUSH MAKER shunt) Brother Hypertension Sister Diabetes Sister age [...] Duoderm applied 13. Stress incontinence - ICD9: [id number], ICD10: N39.3 Urgency - URINALYSIS, REFLEX MICROSCOPIC - SOLIFENACIN 5 MG TABLET Discussed treatment plan and patient voices understanding. Patient's questions answered appropriately. Medications and potential side effects were discussed and patient voices understanding. Return to the office as scheduled or as needed for worsening/no improvement. Tasha Deutsch APRN.NICO documented in this encounterOur Lady Of [facility]cy Hospital12-26-2024 Telephone encounter Note * Telephone Encounter - Mara Hatch MA - 04/08/2024 1:44 PM EST Pt notified and voiced understanding. Mara Hatch MA [facility]12-26-2024 Miscellaneous Notes* Telephone Encounter - Mara [...] this urinary tract bacteria. documented in this encounterOur Lady Of Mercy Hospital12-26-2024 Telephone encounter Note * Telephone Encounter - Mara Hatch MA - 04/08/2024 1:43 PM EST ----- Message from Tasha Deutsch sent at 04/08/2024 9:12 AM EST ----- Your urine cultured E. coli. You did have a urinary tract infection. However, the antibiotic that Iput you on for Sinusitis will be effective for this urinary tract bacteria. [facility]12-24-2024 Telephone encounter Note* Telephone Encounter - Winsome Butler MA - 04/06/2024 8:17 AM EST Patient notified that culture is in process and she will be notified of Friday of results. Winsome Butler MA April 06, 2024 8:18 AM [facility]12-24-2024 Miscellaneous Notes* Telephone Encounter - Winsome [...] for that on Friday. documented in this encounterOur Lady Of Mercy Hospital12-24-2024 Telephone encounter Note * Telephone Encounter - Winsome Butler MA - 04/06/2024 8:14 AM EST ----- Message from Tsaha Deutsch sent at 04/06/2024 8:01 AM EST ----- It looks like you may have a urinary tract infection. I did order a reflex culture if needed. We will watch for that on Friday. [facility]12-23-2024 Instructions* Patient Instructions* Tasha Deutsch APRN.CNP - 04/05/2024 3:44 PM EST - AMOXICILLIN 875 MG-POTASSIUM CLAVULANATE 125 MG TABLET - Saline nasal spray frequently while on antibiotic - Send urinalysis with reflex documented in this encounterOur Lady Of Mercy Hospital12-23-2024 NoteHNO ID: [id number] Author: TASHA DEUTSCH APRN.CNP Service: ? Author [...] hernia History of esophagogastroduodenoscopy (EGD) 09/23/2014 [facility]: All normal HTN (hypertension) Hyperlipidemia, mixed [...] (Rosins), Bactrim [Sulfamethoxazole-Trimethoprim], Macrobid [Nitrofurantoin Monohyd/M-Cryst], and Vxrwdor-Vrq-Afz Reductase Inhibitors MEDICATIONS Current Outpatient Medications Medication [...] Brother age 76 other (CVA) Brother other (PAINT BRUSH MAKER shunt) Brother Hypertension Sister Diabetes Sister age [...] matter Cardiovascular: Rate an (more content not included)...[facility]12-23-2024 History of Present illness Narrative* Tasha Deutsch APRN.PROPERTY ADJUSTER - 04/05/2024 3:35 PM EST This is [...] hernia History of esophagogastroduodenoscopy (EGD) 09/23/2014 [facility]: All normal HTN (hypertension) Hyperlipidemia, mixed Osteoarthritis Osteopenia PUD (peptic ulcer disease) 2013 Vitamin D deficiency PAST SURGICAL HISTORY Procedure Laterality Date BUNIONECTOMY, LAPIDUS-TYPE Left 03/30/2007 Dr. Devin LOPEZCTOMY, LAPIDUS-TYPE Right 03/30/2008 Dr. Beltran CATARACT EXTRACTION W/ INTRAOCULAR LENS IMPLANT HX Left 03/31/2003 Dr. Sosa COLONOSCOPY 09/23/2014 colonoscopy Samara Rodatre internal hemorrhoids, otherwise WNL COLONOSCOPY FLX DX [...] Tape (Rosins), Bactrim [Sulfamethoxazole-Trimethoprim], Macrobid [NitrofurantoinMonohyd/M-Cryst], and Bbsvwbe-Ssn-Hrh Reductase Inhibitors MEDICATIONS Current Outpatient Medications Medication [...] Brother age 76 other (CVA) Brother other (PAINT BRUSH MAKER shunt) Brother Hypertension Sister Diabetes Sister age [...] - ICD9: 788.63, ICD10: R39.15 May need uro-manufacturing engineer paint consult - URINALYSIS WITH MICROSCOPIC, REFLEX CULTURE Discussed treatment plan and patient voices understanding. Patient's questions answered appropriately. Medications and potential side effects were discussed and patient voices understanding. Return to the office as scheduled or as needed for worsening/no improvement. Tasha Deutsch APRN.CNP documented in this encounterOur Lady Of Mercy Hospital08-23-2024 Instructions* Patient Instructions* Tasha Deutsch APRN.CNP - 12/05/2023 11:10 AM EDT 1) Keep appt. In April as scheduled 2) Continue walking as often as possible 3) Continue acetaminophen rather than ibuprofen (Advil) 4) Follow up in April as scheduled 04/26/24 documented in this encounterOur Lady Of Mercy Hospital08-23-2024 History of Present illness Narrative* Tasha [...] History of esophagogastroduodenoscopy (EGD) Comment: [facility]: All normal No date: HTN (hypertension) No [...] Tape (Rosins), Bactrim [Sulfamethoxazole-Trimethoprim], Macrobid [NitrofurantoinMonohyd/M-Cryst], and Joxvcsx-Jqr-Zma Reductase Inhibitors MEDICATIONS Current Outpatient Medications Medication [...] Brother age 76 other (CVA) Brother other (PAINT BRUSH MAKER shunt) Brother Hypertension Sister Diabetes Sister age [...] improvement. Tasha Deutsch APRN.CNP documented in this encounterOur Lady Of Mercy Hospital07-15-2024 Instructions* Patient Instructions* Tasha Deutsch APRN.CNP - 10/27/2023 10:08 AM EDT 1) Continue current medications 2) Melatonin 3 mg at bedtime, may repeat in middle of night x 1 3) Follow up in 6 months documented in this encounterOur Lady Of Mercy Hospital07-15-2024 History of Present illness Narrative* Tasha [...] Hiatal hernia History of esophagogastroduodenoscopy (EGD) 09/23/2014 [facility]: All normal HTN (hypertension) Hyperlipidemia, mixed Osteoarthritis Osteopenia PUD (peptic ulcer disease) 2014 Vitamin D deficiency PAST SURGICAL HISTORY Procedure Laterality Date BUNIONECTOMY, LAPIDUS-TYPE Left 03/30/2007 Dr. Devin DE DIOS, LAPIDUS-TYPE Right 03/30/2008 Dr. Beltran CATARACT EXTRACTION W/ INTRAOCULAR LENS IMPLANT HX Left 03/31/2003 Dr. Sosa COLONOSCOPY 09/23/[address] [facility], [facility] WNL COLONOSCOPY FLX [...] Tape (Rosins), Bactrim [Sulfamethoxazole-Trimethoprim], Macrobid [NitrofurantoinMonohyd/M-Cryst], and Jcnzebq-Uep-Rkq Reductase Inhibitors MEDICATIONS Current Outpatient Medications Medication [...] Brother age 76 other (CVA) Brother other (PAINT BRUSH MAKER shunt) Brother Hypertension Sister Diabetes Sister age [...] if needed 7. Stress incontinence - ICD9: [id number], ICD10: N39.3 Wears pads Discussed treatment plan and patient voices understanding. Patient's questions answered appropriately. Medications and potential side effects were discussed and patient voices understanding. Return to the office as scheduled or as needed for worsening/no improvement. Tasha Deutsch APRN.PROPERTY ADJUSTER documented in this encounterOur Lady Of Mercy Hospital06-14-2024 History of Present illness Narrative* Sudheer [...] by nothing. Denies injury. Has apt with spectrograph operator in october. .Patient presents with: Ingrown Toenail: L great toe redness, swelling, painful, was seeping blood this am x 1 week Has appt with Felicitas baker [id number] October 21 PAST MEDICAL HISTORY Diagnosis Date Abnormal CT of the abdomen 01/24/2014 localized perihepatic fluid indeterminate, 4mm density too small for ID, fusiforma sortic ectasia Anemia Arthritis Cerebral degeneration (HCC) Collagenous colitis Degenerative lumbar disc Dyslipidemia GERD (gastroesophageal reflux disease) H/O colonoscopy 09/23/2014 small internal hemorrhoids otherwise WNL. No further surveillance recommended Hiatal hernia History of esophagogastroduodenoscopy (EGD) 09/23/2014 [facility]: All normal HTN (hypertension) Hyperlipidemia, mixed [...] Tape (Rosins), Bactrim [Sulfamethoxazole-Trimethoprim], Macrobid [NitrofurantoinMonohyd/M-Cryst], and Zbhtdum-Xok-Osx Reductase Inhibitors MEDICATIONS estradiol (ESTRACE) 0.01 % [...] Brother age 76 other (CVA) Brother other (PAINT BRUSH MAKER shunt) Brother Hypertension Sister Diabetes Sister age [...] MUPIROCIN 2 % TOPICAL OINTMENT Sudheer Olguin APRN.PROPERTY ADJUSTER documented in this encounterOur Lady Of Mercy Hospital05-06-2024 History of Present illness Narrative* Tamia Quezada PA-C - 08/18/2023 11:44 AM EDTAssociated Order(s): Large Joint Arthro/Inj: L knee joint Post-Procedure Diagnose(s): Primary osteoarthritis of left knee Large Joint Arthro/Inj: L knee joint Informed Consent Consent Obtained: Verbal Perryman Protocol A moment to CARE was completed. [...] Euflexxa injection into left knee. LOT # [id number] EXP 03/14/2024 Aida Narayanan MA documented in this encounterOur Lady Of Mercy Hospital05-06-2024 Nurse Note* Chel Nunez RN - 08/18/2023 11:22 AM EDT AMB ROOMING INTAKE FLOWSHEET DATA Pain Pain Level: 1 Pain Location: Knee-Left Description: Aching Duration Amount of Time: 1 Duration Units: Weeks Frequency: Intermittent Intervention/Comfort measure: Reposition, Relaxation, Medication Patient presents with: Left Knee - Follow Up, Injections Patient here for 3rd Euflexxa injection. LOT # [id number] EXP 03-14-2024 Chel Nunez RN [facility]05-06-2024 Nurse Note* Chel Nunez RN - 08/18/2023 11:22 AM EDT [facility] ROOMING INTAKE FLOWSHEET DATA Pain Pain Level: 1 Pain Location: Knee-Left Description: Aching Duration Amount of Time: 1 Duration Units: Weeks Frequency: Intermittent Intervention/Comfort measure: Reposition, Relaxation, Medication Patient presents with: Left Knee - Follow Up, Injections Patient here for 3rd Euflexxa injection. LOT # [id number] 03-14-2024 Chel Nunez RN documented in this encounterOur Lady Of Mercy Hospital05-03-2024 Instructions* Patient Instructions* Tasha Deutsch APRN.INSIDE SALES ADVISOR - 08/15/2023 10:21 AM EDT 1) - Check BMP 2) - Consider melatonin 3 mg for sleep if needed, could repeat once in a night if needed 3) - Follow up with Adal in October as scheduled documented in this encounterOur Lady Of Mercy Hospital05-03-2024 History of Present illness Narrative* Tasha [...] Hiatal hernia History of esophagogastroduodenoscopy (EGD) 09/23/2014 [facility]: All normal HTN (hypertension) Hyperlipidemia, mixed Osteoarthritis Osteopenia PUD (peptic ulcer disease) 2014 Vitamin D deficiency PAST SURGICAL HISTORY Procedure Laterality Date BUNIONECTOMY, LAPIDUS-TYPE Left 03/30/2007 Dr. Beltran BUNIONECTOMY, LAPIDUS-TYPE Right 03/30/2008 Dr. Beltran CATARACT EXTRACTION W/ INTRAOCULAR LENS IMPLANT HX Left 03/31/2003 Dr. Sosa COLONOSCOPY 09/23/[address] Addy Enriquez [place] internal hemorrhoids, otherwise WNL COLONOSCOPY FLX DX [...] Tape (Rosins), Bactrim [Sulfamethoxazole-Trimethoprim], Macrobid [NitrofurantoinMonohyd/M-Cryst], and Wsyajbr-Kcl-Hnu Reductase Inhibitors MEDICATIONS Current Outpatient Medications Medication [...] Brother age 76 other (CVA) Brother other (PAINT BRUSH MAKER shunt) Brother Hypertension Sister Diabetes Sister age [...] agrees with the plan. documented in this encounterOur Lady Of Mercy Hospital04-29-2024 History of Present illness Narrative* Tamia Quezada PA-C - 08/11/2023 1:24 PM EDTAssociated Order(s): Large Joint Arthro/Inj: L knee joint Post-Procedure Diagnose(s): Chronic pain of left knee Large Joint Arthro/Inj: L knee joint Informed Consent Consent Obtained: Verbal Perryman Protocol A moment to CARE was completed. [...] # 2 into left knee LOT # [id number] EXP 03/14/2024 Aida Narayanan MA documented in this encounterOur Lady Of Mercy Hospital04-22-2024 History of Present illness Narrative* Tamia Quezada PA-C - 08/04/2023 11:36 AM EDTAssociated Order(s): Large Joint Arthro/Inj: L knee joint Post-Procedure Diagnose(s): Primary osteoarthritis of left knee; Chronic pain of left knee Large Joint Arthro/Inj: L knee joint Informed Consent Consent Obtained: Verbal Perryman Protocol A moment to CARE was completed. [...] here for first Euflexxa injection LOT # [id number] EXP 03/09/2024 Chel Nunez RN documented in this encounterOur Lady Of Mercy Hospital04-03-2024 History of Present illness Narrative* Moses [...] Rash Bactrim [Sulfametho* Rash Macrobid [Nitrofura* Rash Oswxowq-Zgh-Uub Red* Intolerance PAST MEDICAL HISTORY Diagnosis Date Abnormal CT of the abdomen 01/24/2014 localized perihepatic fluid indeterminate, 4mm density too small for ID, fusiforma sortic ectasia Anemia Arthritis Cerebral degeneration (HCC) Collagenous colitis Degenerative lumbar disc Dyslipidemia GERD (gastroesophageal reflux disease) H/O colonoscopy 09/23/2014 small internal hemorrhoids otherwise WNL. No further surveillance recommended Hiatal hernia History of esophagogastroduodenoscopy (EGD) 09/23/2014 [facility]: All normal HTN (hypertension) Hyperlipidemia, mixed [...] Brother age 76 other (CVA) Brother other (PAINT BRUSH MAKER shunt) Brother Hypertension Sister Diabetes Sister age [...] MICROSCOPIC Moses Ross MD documented in this encounterOur Lady Of Mercy Hospital04-03-2024 Miscellaneous Notes* Telephone Encounter - Eleanor [...] dizziness 6. : no Protocols used: Urinary Bozjbcwi-NRRBH-VS documented in this encounterOur Lady Of Mercy Hospital03-26-2024 History of Present illness Narrative* Hetal Gallardo, DO - 07/08/2023 9:54 AM EDT Images from the original note were not included. [facility] V[facility] Thor[facility] [place] DEPARTMENT OF VASCULAR SURGERY OUTPATIENT VISIT DATE July 08, 2023 OUTPATIENT VISIT TYPE CONSULTATION SERVICE DATE: 07/08/2023 SERVICE TIME: 9:54 AM PRIMARY CARE PHYSICIAN: Jose G Harrington PA-C REFERRING PROVIDER: Moses Ross [address] [facility] [id number] Consult requested for an opinion regarding the [...] hernia History of esophagogastroduoden[facility] (EGD) [facility] HTN (hypertension) Hyperlipidemia, mixed [...] Brother age 76 other (CVA) Brother other (PAINT BRUSH MAKER shunt) Brother Hypertension Sister Diabetes Sister age [...] Rash Bactrim [Sulfametho* Rash Macrobid [Nitrofura* Rash Nvtlmdk-Vfm-Cbz Red* Intolerance REVIEW of SYSTEM: Constitutional: No [...] Stenosis: Dr. Ross Referral documented in this encounterOur Lady Of Mercy Hospital03-13-2024 History of Present illness Narrative* Julee Becker, [...] 06/25/2023 and treatment included: Therapeutic exercise and Self-shelter management. Goals for Episode of Care: created [...] Extension: Major limitation, Produces Lumbar R Side [place]: Moderate limitation Lumbar L Side [place]: Moderate limitation Lumbar R Side-Bend: Minimal limitation, [...] facilitated with verbal, visual, and tactile cueing. Self-Penitentiary Management: 1: encouraged pt. to continue HEP [...] 1058 Julee Becker PT documented in this encounterOur Lady Of Mercy Hospital03-11-2024 History of Present illness Narrative* Tamia Quezada PA-C - 06/23/2023 10:27 AM EDTAssociated Order(s): Large Joint Arthro/Inj: L knee joint Post-Procedure Diagnose(s): Chronic pain of left knee; Primary osteoarthritis of left knee; Patellofemoral pain syndrome of left knee Tamia Quezada PA-C Department of Orthopaedics Orthopaedics [address] [place] [id number] Dept: [phone] Dept June 23, 2023 CHIEF COMPLAINT: Established [...] knee joint Informed Consent Consent Obtained: Verbal Perryman Protocol A moment to CARE was completed. [...] Severe patellofemoral osteoarthritis without acute osseous findings. Jigmaker: STAN Transcribe Date/Time: Jun 23 2023 4:38P [...] are demineralized. Severe patellofemoral degenerative changes with altl-wn-papq articulation, subchondral cirrhosis and marginal osteophytes. Tibiofemoral [...] (Rosins), Bactrim [Sulfamethoxazole-Trimethoprim], Macrobid [Nitrofurantoin Monohyd/M-Cryst], and Juxwsxn-Gis-Npv Reductase Inhibitors ROS: General (negative for fatigue, malaise, weight loss/gain) HEENT (negative for headache, earache, recent vision changes, sinus pain, sore throat) Respiratory (no recent shortness of breath, hemoptysis) CV (negative for chest tightness, palpitations) Musculoskeletal (see HPI) Psych (no depression, anxiety) This note was partially generated using Clickberry voice recognition system, and there may be [...] like an injection today. documented in this encounterOur Lady Of Mercy Hospital03-11-2024 History of Present illness Narrative* Darlyn [...] PATIENT PRESENTS WITH AN IMPLANTABLE OR ATTACHED BOILER COVERER HELPER: No RADIOLOGY DEPARTMENT: General X-ray: Exam(s) Completed: Lower Extremity X- Ray(s): Knee, AP / Lat / Tunne / Merchant Left PERIPHERAL IV DATA: Not applicable SIGNED BY: RT Edie(R) June 23, 2023 9:46 AM documented in this encounterOur Lady Of Mercy Hospital03-06-2024 History of Present illness Narrative* Julee Becker, PT - 06/18/2023 10:46 AM EST Program_ID:[id number] Access Code: [email or web address] URL: [email or web address] Date: 06-18-2023 Prepared By: Julee Becker Program Notes Exercises - Seated Abdominal Press into Ethiopian Ball - 1 x daily - 7 [...] seated TA activation 2x10 2: *Access Code: [email or web address] URL: [email or web address] Date: 06/18/2023 Prepared by: Julee Lyons Exercises - Seated Abdominal Press into Ethiopian Ball - 1 x daily - 7 [...] 1106 Julee Becker PT documented in this encounterOur Lady Of Mercy Hospital02-27-2024 Miscellaneous Notes* Telephone Encounter - Marisa Campos RN - 06/10/2023 11:02 AM EST Patient notified of results. Patient verbalizes understanding. Marisa Campos RN * Telephone Encounter - Winsome Butler Ma - 06/10/2023 9:46 AM EST Left message for patient to return call. Winsome Butler Ma * Telephone Encounter - Winsome Butler Ma - 06/09/2023 5:19 PM EST ----- Message from Tasha Deutsch APRN.INSIDE SALES ADVISOR sent at 06/09/2023 4:52 PM EST ----- Please let pt. Know that mild anemia is stable. Iron level and iron stores are normal. documented in this encounterOur Lady Of Mercy Hospital02-21-2024 History of Present illness Narrative* Julee [...] Julee Becker, PT, DPT documented in this encounterOur Lady Of Mercy Hospital02-19-2024 Instructions* Patient Instructions* Tasha Deutsch APRN.CNS - 06/02/2023 4:51 PM EST 1) Increase lisinopril to 2- 10mg tablets daily 2) Get labs done in 1 week 3) Schedule carotid ultrasound 4) See Adal in October as scheduled documented in this encounterOur Lady Of Mercy Hospital02-19-2024 History of Present illness Narrative* Tasha [...] hernia History of [facility]ast[facility] ([facility]) [facility] normal HTN (hypertension) Hyperlipidemia, mixed [...] Tape (Rosins), Bactrim [Sulfamethoxazole-Trimethoprim], Macrobid [NitrofurantoinMonohyd/M-Cryst], and Nllvxfv-Gio-Vvr Reductase Inhibitors MEDICATIONS Current Outpatient Medications Medication [...] Brother age 76 other (CVA) Brother other (PAINT BRUSH MAKER shunt) Brother Hypertension Sister Diabetes Sister age [...] grossly intact., cranial nerves III-XII intact, no badxfm-go-mnow ataxia. LABS: CT of head normal ASSESSMENT/PLAN: [...] agrees with the plan. documented in this encounterOur Lady Of Mercy Hospital02-14-2024 Miscellaneous Notes* Telephone Encounter - Breann [...] ultrasound. Howis she feeling? documented in this encounterOur Lady Of Mercy Hospital02-14-2024 History of Present illness Narrative* Julee Becker, PT - 05/28/2023 10:25 AM EST BP: 191/97 HR: 86 SpO2: 100% Pt. Reports feeling dizzy Friday and contacting PCP. Pt. Advised to wean from metroprolol. Pt. Continued to have dizziness and vomited 2x due to dizziness. Pt. Seen by FIELD TRAFFIC INVESTIGATOR 05/26/23. Head CT negative and Carotid US ordered per chart. Reports that she has not taken her BP medication yet today or BP measurement yet today. Denies symptoms of light headedness or dizziness upon arrival. Pt. Advised by PT to continue medications as instructed by FIELD TRAFFIC INVESTIGATOR and PCP. Schedule and attend tests. Hold PT today due to high BP at rest. Plan was to complete balance activities today. Encouraged pt. To monitor her BP and go to ED should she become dizzy or vomit. Referring provider notified. Julee Becker PT, DPT documented in this encounterOur Lady Of Mercy Hospital02-13-2024 History of Present illness Narrative* Corinne [...] PATIENT PRESENTS WITH AN IMPLANTABLE OR ATTACHED BOILER COVERER HELPER: No RADIOLOGY DEPARTMENT: CT; Exam(s) Completed: Brain PERIPHERAL IV DATA: Not applicable SIGNED BY: RT Nilo(R) May 27, 2023 2:40 PM documented in this encounterOur Lady Of Mercy Hospital02-12-2024 Miscellaneous Notes* Telephone Encounter - Breann [...] 24 hours. Scheduled same day appt with FIELD TRAFFIC INVESTIGATOR, but advised to ER if has another [...] : Post menopause. Protocols used: Dizziness - Rtchghajsgtbaml-BNFHK-DE documented in this encounterOur Lady Of Mercy Hospital02-12-2024 Miscellaneous Notes* Telephone Encounter - Winsome Butler Ma - 05/26/2023 3:45 PM EST Detailed message for patient left on voicemail to schedule either tomorrow at visit or call back. Phone number left. Winsome Butler Ma * Telephone Encounter - Breann Schmitz APRN.CNP - 05/26/2023 3:10 PM EST Please remind patient to schedule carotid duplex. Breann Schmitz APRN.CNP documented in this encounterOur Lady Of Mercy Hospital02-12-2024 Instructions* Patient Instructions* Breann Schmitz APRN.CNP - 05/26/2023 2:06 PM EST Start the lisinopril daily. Schedule the CT of the head. Schedule the carotid ultrasound. Recheck in 1 week. documented in this encounterOur Lady Of Mercy Hospital02-12-2024 History of Present illness Narrative* Breann [...] hernia History of esophagogastroduodenoscopy (EGD) [facility] All normal HTN (hypertension) Hyperlipidemia, mixed Osteoarthritis Osteopenia PUD (peptic ulcer disease) 2014 Vitamin D deficiency PAST SURGICAL HISTORY Procedure Laterality Date BUNIONECTOMY, LAPIDUS-TYPE Left 03/30/2007 Dr. Devin LOPEZCTOMY, LAPIDUS-TYPE Right 03/30/2008 Dr. Beltran CATARACT EXTRACTION W/ INTRAOCULAR LENS IMPLANT HX Left 03/31/2003 Dr. Sosa COLONOSCOPY 09/23/[address] Addy Enriquez [place] internal hemorrhoids, otherwise WNL COLONOSCOPY FLX DX [...] Tape (Rosins), Bactrim [Sulfamethoxazole-Trimethoprim], Macrobid [NitrofurantoinMonohyd/M-Cryst], and Kqcouto-Ryy-Ejs Reductase Inhibitors MEDICATIONS Current Outpatient Medications Medication [...] Brother age 76 other (CVA) Brother other (PAINT BRUSH MAKER shunt) Brother Hypertension Sister Diabetes Sister age [...] as needed for worsening/no improvement. Breann Schmitz APRN.PROPERTY ADJUSTER documented in this encounterOur Lady Of Mercy Hospital02-07-2024 History of Present illness Narrative* Julee Becker, PT - 05/21/2023 10:48 AM EST Program_ID:[id number] Access Code: [email or web address] URL: [email or web address] Date: 05-21-2023 Prepared By: Julee Becker Program [...] Patient to be seen for Therapeutic activities (66281), Manual therapy (82485), Self-shelter management (56026), Gait Training (84049), Therapeutic exercise (75872), Neuromuscular re-education (13989) PLAN FOR NEXT VISIT: address back and [...] R shoulder flexion 1x 2: *Access Code: [email or web address] URL: [email or web address] Date: 05/21/2023 Prepared by: Julee Lyons Exercises [...] and function . Patient education as noted. Self-Penitentiary Management: 1: discussed directional preference and flexion [...] 1107 Julee Becker PT documented in this [facility]12[facility]18[facility] History of Present illness Narrative* Mariella Newell [...] 31, 2023 11:45 AM documented in this encounterOur Lady Of Mercy Hospital09-18-2023 History of Present illness Narrative* Sandra Horne MD - 12/30/2022 3:25 PM EDT Images from the original note were not included. Sandra Horne MD Interventional Cardiology [facility] [address], [place] [address] [phone] Chief Complaint Patient presents with: Consult HISTORY OF PRESENT ILLNESS: Ms. Hay is a 82 year old female in my office today for assessment and management of paroxysmal atrial fibrillation patient had no cardiac history in the past she was seen at [place] emergency department because of atrial fibrillation that [...] Hiatal hernia History of esophagogastroduodenoscopy (EGD) 09/23/2014 [facility]: All normal HTN (hypertension) Hyperlipidemia, mixed [...] vs metastatic disease; EGD 09/23/2014 Dr. Greenwalt [place] Normal esophagus, z-line, stomach and duodenum ESOPHAGOGASTRODUODENOSCOPY [...] Brother age 76 other (CVA) Brother other (PAINT BRUSH MAKER shunt) Brother Hypertension Sister Diabetes Sister age 66 (sepsis) Social History Tobacco Use Smoking status: Never Smokeless tobacco: Never Vaping Use Vaping Use: Never used Substance Use Topics Alcohol use: No Drug use: No ALLERGIES Allergen Reactions Adhesive Tape (Tati* Rash Bactrim [Sulfametho* Rash Macrobid [Nitrofura* Rash Avbjnsc-Sfx-Uod Red* Intolerance Medications: Current Outpatient Medications Medication [...] to correct any errors. documented in this encounterOur Lady Of Mercy Hospital07-13-2023 Instructions* Patient Instructions* Jose G Harrington [...] anything that really hurts. documented in this encounterOur Lady Of Mercy Hospital07-13-2023 History of Present illness Narrative* Jose G Hrarington PA-C - 10/24/2022 9:15 AM EDT 82 [...] Brother age 76 other (CVA) Brother other (PAINT BRUSH MAKER shunt) Brother Hypertension Sister Diabetes Sister age [...] Hiatal hernia History of esophagogastroduodenoscopy (EGD) 09/23/2014 [facility]: All normal HTN (hypertension) Hyperlipidemia, mixed [...] Finger Chronic Renal Insufficiency, Stage 3 (Moderate) ([facility]) Vitamin D Deficiency Ddd (Degenerative Disc Disease), Cervical Primary Osteoarthritis of Right Hip Collagenous Colitis Ibs (Irritable Bowel Syndrome) Hiatal Hernia Fall From Standing Rotator Cuff Tear Arthropathy, Left Paroxysmal Atrial Fibrillation ([facility]) Current Outpatient Medications Medication Sig Dispense [...] Jose G Harrington PA-C documented in this encounterOur Lady Of Mercy Hospital06-29-2023 History of Present illness Narrative* Jose [...] cervical Primary osteoarthritis of right hip Taking Amharic Organic Herbal Tea which she feels is [...] Brother age 76 other (CVA) Brother other (PAINT BRUSH MAKER shunt) Brother Hypertension Sister Diabetes Sister age [...] hernia History of esophagogastroduodenoscopy (EGD) 09/23/2014 [facility]: All normal HTN (hypertension) Hyperlipidemia, mixed Osteoarthritis Osteopenia PUD (peptic ulcer disease) 2013 Vitamin D deficiency PAST SURGICAL HISTORY Procedure Laterality Date BUNIONECTOMY, LAPIDUS-TYPE Left 03/30/2007 Dr. Devin LOPEZCTOMY, LAPIDUS-TYPE Right 03/30/2008 Dr. Beltran CATARACT EXTRACTION W/ INTRAOCULAR LENS IMPLANT HX Left 03/31/2003 Dr. Sosa COLONOSCOPY 09/23/[address] Addy Enriquez, [place] internal hemorrhoids, otherwise WNL COLONOSCOPY FLX DX [...] Jose G Harrington PA-C documented in this encounterOur Lady Of Mercy Hospital06-29-2023 Instructions* Patient Instructions* Jose G Harrington [...] your usual activities immediately. documented in this encounterOur Lady Of Mercy Hospital12-29-2022 Procedure note* DIMA Ricardo - 04/11/2022 10:30 AM EST EVENT MONITOR DISPOSABLE PATCH INSTRUCTIONS Patient Name: Behzad Hay [facility] Number: [id number] Skin prepped and cleansed with alcohol Patch secured to prepped area Monitor Activated Serial #: [id number] Patient Instructed: Prescribed order timeframe Bathing guidelines Usage of event button and diary documentation Return of monitor at the end of prescribed order Call with problems [phone] or [phone]. [phone] Patient expresses a good understanding of instructions DIMA Ricardo documented in this encounterOur Lady Of Mercy Hospital12-29-2022 History of Present illness Narrative* Jose G Harrington PA-C - 04/11/2022 9:20 AM EST 82 year old female with c/o ER/ hospital follow up 04/07/2022 presented to [facility] emergency department after a fall [...] normal limits, CMP within normal limits except QGC91-16.01, EGFR 56. Normal troponin 116, TSH normal [...] Brother age 76 other (CVA) Brother other (PAINT BRUSH MAKER shunt) Brother Hypertension Sister Diabetes Sister age [...] Hiatal hernia History of esophagogastroduodenoscopy (EGD) 09/23/2014 [facility]: All normal HTN (hypertension) Hyperlipidemia, mixed Osteoarthritis Osteopenia PUD (peptic ulcer disease) 2013 Vitamin D deficiency PAST SURGICAL HISTORY Procedure Laterality Date BUNIONECTOMY, LAPIDUS-TYPE Left 03/30/2007 Dr. Devin LOPEZCTOMY, LAPIDUS-TYPE Right 03/30/2008 Dr. Beltran CATARACT EXTRACTION W/ INTRAOCULAR LENS IMPLANT HX Left 03/31/2003 Dr. Sosa COLONOSCOP W/ OR W/O [facility] SPEC 09/01/2020 Dr. Whitehead COLONOSCOPY 09/23/2014 [...] Finger Chronic Renal Insufficiency, Stage 3 (Moderate) ([facility]) Vitamin D Deficiency Ddd (Degenerative Disc [...] Jose G Harrington PA-C documented in this encounterOur Lady Of Mercy Hospital07-18-2022 Instructions* Patient Instructions* Jose G Harrington PA-C - 10/29/2021 11:59 AM EDT Triamcinolone 0.1% cream 2-3 times a x 5-7 days: if not improving or flares on discontinuation, letme know. documented in this encounterOur Lady Of Mercy Hospital07-18-2022 History of Present illness Narrative* Jose [...] been chemical rose. She has been using pbdt-emc-ivkfpru hydrocortisone and also triamcinolone from her prior [...] adhesive capsulitis or mild capsular sprain. 06/07/2021 [facility] consult: rotator cuff tear 06/04/2021 Lost [...] Brother age 76 other (CVA) Brother other (PAINT BRUSH MAKER shunt) Brother Hypertension Sister Diabetes Sister age [...] Hiatal hernia History of esophagogastroduodenoscopy (EGD) 09/23/2014 [facility]: All normal HTN (hypertension) Hyperlipidemia, mixed Osteoarthritis Osteopenia PUD (peptic ulcer disease) 2013 Vitamin D deficiency PAST SURGICAL HISTORY Procedure Laterality Date BUNIONECTOMY, LAPIDUS-TYPE Left 03/30/2007 Dr. Devin CARLIONECTOMY, LAPIDUS-TYPE Right 03/30/2008 Dr. Beltran CATARACT EXTRACTION W/ INTRAOCULAR LENS IMPLANT HX Left 03/31/2003 Dr. Sosa COLONOSCOP W/ OR W/O [facility] SPEC 09/01/2020 Dr. Whitehead COLONOSCOPY 09/23/2014 [...] 4. Chronic renal insufficiency, stage 3 (moderate) ([facility]) - ICD9: 585.3, ICD10: N18.30 Stable 5. Vitamin D deficiency - ICD9: 268.9, ICD10: E55.9 Improved Follow-up in 6 months or as needed. Jose G Harrington PA-C documented in this encounterOur Lady Of Mercy Hospital07-13-2022 History of Present illness Narrative* Jazmyne Bernabe RN - 10/24/2021 3:28 PM EDT [facility] [facility] Enrollment Provider Action/FYI: Patient declined home monitoring of any type - stated, "I just call the doctor when I don't feel well." Patient referred by: [facility] Gopal Contact made with patient: Yes - Patient identified by name and . Discussed care with patient Chu this is Jazmyne Bernabe RN and I am calling from Jose G Harrington PA-C office at the [facility]. I am a RN Kick Boxer with our [employer] Chronic Disease Management program. [...] few questions once a week through your [employer] account. It will automatically show up for [...] Provider Action/FYI: Left message Patient referred by: [facility] Gopal Contact made with patient: No - Left Message: Hi my name is Jazmyne Bernabe RN and I am calling from the [facility] on behalf of your physician's press assistant and feeder, Jose G Harrington PA-C. We are excited to share with you a new way to help you manage your health. Please call me back at [phone] between the hours of 8am-4pm Friday-Friday. You will receive another phone call from me within the next two business days. I hope you can take the time to speak with me." (Keep encounter open and attempt 2nd outreach in two business days from today) END OUTREACH documented in this encounterOur Lady Of Mercy Hospital04-21-2022 Miscellaneous Notes* Telephone Encounter - Ariadna [...] refill in other encounter. documented in this encounterOur Lady Of Mercy Hospital04-20-2022 Miscellaneous Notes* Telephone Encounter - Jazmyne Oviedo Pss - 08/01/2021 8:52 AM EDT Pharmacy verified in [facility] Patient has been identified by [...] advise. 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 documented as of this encounter (statuses as of 10/24/2021) [place] [address] History of Past illness Narrative* Problem Noted Date Resolved Date 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 documented as of this encounter (statuses as of 10/30/2021) [place] [address] History of Past illness Narrative* Problem Noted Date Resolved Date 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 documented as of this encounter (statuses as of 04/17/2022) [place] [address] History of Past illness Narrative* Problem Noted Date Resolved Date 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 07/28/2017 documented as of this encounter (statuses as of 10/13/2022) [place] [address] History of Past illness Narrative* Problem Noted Date Diagnosed Date Resolved Date 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 documented as of this encounter (statuses as of 10/24/2022) [place] [address] History of Past illness Narrative* Problem Noted Date Diagnosed Date Resolved Date 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 documented as of this encounter (statuses as of 12/31/2022) [place] [address] History of Past illness Narrative* Problem Noted Date Diagnosed Date Resolved Date 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 documented as of this encounter (statuses as of 05/21/2023) [place] [address] History of Past illness Narrative* Problem Noted Date Diagnosed Date Resolved Date 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 documented as of this encounter (statuses as of 05/26/2023) [place] [address] History of Past illness Narrative* Problem Noted Date Diagnosed Date Resolved Date 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 documented as of this encounter (statuses as of 05/26/2023) [place] [address] History of Past illness Narrative* Problem Noted Date Diagnosed Date Resolved Date 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 documented as of this encounter (statuses as of 05/27/2023) [place] [address] History of Past illness Narrative* Problem Noted Date Diagnosed Date Resolved Date 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 documented as of this encounter (statuses as of 05/28/2023) [place] [address] History of Past illness Narrative* Problem Noted Date Diagnosed Date Resolved Date 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 documented as of this encounter (statuses as of 05/28/2023) [place] [address] History of Past illness Narrative* Problem Noted Date Diagnosed Date Resolved Date 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 documented as of this encounter (statuses as of 05/28/2023) [place] [address] History of Past illness Narrative* Problem Noted Date Diagnosed Date Resolved Date 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 documented as of this encounter (statuses as of 06/02/2023) [place] [address] History of Past illness Narrative* Problem Noted Date Diagnosed Date Resolved Date 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 documented as of this encounter (statuses as of 06/04/2023) [place] [address] History of Past illness Narrative* Problem Noted Date Diagnosed Date Resolved Date 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 documented as of this encounter (statuses as of 06/10/2023) [place] [address] History of Past illness Narrative* Problem Noted Date Diagnosed Date Resolved Date 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 documented as of this encounter (statuses as of 06/18/2023) [place] [address] History of Past illness Narrative* Problem Noted Date Diagnosed Date Resolved Date 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 documented as of this encounter (statuses as of 06/24/2023) [address]16-2018 History of Past illness Narrative* Problem Noted Date Diagnosed Date Resolved Date 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 documented as of this encounter (statuses as of 06/24/2023) [address]16-2018 History of Past illness Narrative* Problem Noted Date Diagnosed Date Resolved Date 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 documented as of this encounter (statuses as of 06/25/2023) [address]16[address]2018 History of Past illness Narrative* Problem Noted Date Diagnosed Date Resolved Date 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 documented as of this encounter (statuses as of 07/08/2023) [address]16[address]2018 History of Past illness Narrative* Problem Noted Date Diagnosed Date Resolved Date 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 documented as of this encounter (statuses as of 07/16/2023) [address]16[address]2018 History of Past illness Narrative* Problem Noted Date Diagnosed Date Resolved Date 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 [...] was brought here for further evaluation management. [facility] Medical History Dyslipidemia HTN (hypertension) Paroxysmal [...] (From Allergy Rash Verified 10/12/24 09:44 Macrobid) Bzweaxt-ORI-JqE Reductase AdvReac Unknown Unknown Verified 10/12/24 09:44 [...] also on Eliquis. Will order the reversal [facility] physician Dr. Trujillo who states that the patient can fly down to [facility] the accepting ER physician is Dr. [...] 11:16 am with readback verification. Reading Location: [facility] Head/Neck CTA 10/18/24 11:03 IMPRESSION: No acute abnormality is seen. Stable examination. Reading Location: [facility] Discharge Plan Triage Chief Complaint: Stroke Alert [...] GARFIELD [Primary Care Provider] - Print Language: Luxembourgish Disposition Disposition: DC/Tx to Another Type of HCF What to do if you have Problems For any increased pain, shortness of breath, bleeding, nausea or vomiting, chestpain, or any unexpected problems, contact your Primary Care Provider. Call [facility] ([phone]) or report to the closest Emergency Room. Call 911 if necessary. 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 secondary to blood loss (chronic) [facility]* Diagnosis Chronic renal insufficiency, stage 3 (moderate) (HCC)- Primary Iron deficiency anemia due to chronic blood loss Iron deficiency anemia secondary to blood loss (chronic) documented in this encounter [facility]* Diagnosis Irritant dermatitis- Primary Contact dermatitis and other eczema, due to unspecified cause Traumatic tear of left rotator cuff, sequela Collagenous colitis Other and unspecified noninfectious gastroenteritis and colitis Chronic renal insufficiency, stage 3 (moderate) (HCC) Vitamin D deficiency Unspecified vitamin D deficiency documented in this encounter [facility] noteNo assessment information availableWThe [facility] Work Phone: Evaluation note* Diagnosis Paroxysmal atrial fibrillation (HCC)- Primary Atrial fibrillation Chronic renal insufficiency, stage 3 (moderate) (HCC) Collagenous colitis Other and unspecified noninfectious gastroenteritis and colitis Fall from standing, initial encounter Vitamin D deficiency Unspecified vitamin D deficiency Iron deficiency anemia, unspecified iron deficiency anemia type [facility] Diagnosis Paroxysmal atrial fibrillation (HCC)- Primary [...] Asymptomatic postmenopausal status [facility] Diagnosis Impacted cerumen of right ear- Primary Impacted cerumen Neck pain on right side Cervicalgia [facility] Diagnosis Paroxysmal atrial fibrillation (HCC)- Primary Atrial fibrillation Primary hypertension Unspecified essential hypertension [facility] Diagnosis Acute pain of right shoulder- Primary Severe pain of left shoulder Cervicalgia [facility] Diagnosis Primary hypertension- Primary Unspecified essential hypertension Transient cerebral ischemia, unspecified type Dizziness Dizziness and giddiness Right carotid bruit Other symptoms involving cardiovascular system [facility] Transient cerebral ischemia, unspecified type [facility]* Diagnosis DDD (degenerative disc disease), cervical- Primary Degeneration of cervical intervertebral disc Primary hypertension Unspecified essential hypertension Right carotid bruit Other symptoms involving cardiovascular system Vitamin D deficiency Unspecified vitamin D deficiency Vitamin B12 deficiency Other B-complex deficiencies Dizziness Dizziness and giddiness [facility] Diagnosis Acute pain of right shoulder- Primary Severe pain of left shoulder Cervicalgia [facility] Diagnosis Acute pain of right shoulder- Primary Severe pain of left shoulder Cervicalgia [facility]* Diagnosis Pain Generalized pain [facility] Diagnosis Chronic pain of left knee- Primary Pain in joint, lower leg Primary osteoarthritis of left knee Primary localized osteoarthrosis, lower leg Patellofemoral pain syndrome of left knee [facility] Diagnosis Acute pain of right shoulder- Primary Severe pain of left shoulder Cervicalgia [facility] Diagnosis Occlusion and stenosis of unspecified carotid artery- Primary Bilateral carotid artery stenosis Occlusion and stenosis of carotid artery without mention of cerebral infarction Fibromuscular dysplasia (HCC) Other specified disorders of arteries and arterioles [facility] Diagnosis Acute right-sided low back pain without sciatica- Primary Primary hypertension Unspecified essential hypertension Urinary tract infection with hematuria, site unspecified [facility] Diagnosis Chronic pain of left knee- Primary Pain in joint, lower leg Primary osteoarthritis of left knee Primary localized osteoarthrosis, lower leg [facility] Diagnosis Chronic pain of left knee- Primary Pain in joint, lower leg [facility]* Diagnosis Headache, unspecified headache type- Primary Primary hypertension Unspecified essential hypertension Paroxysmal atrial fibrillation (HCC) Atrial fibrillation Dysuria Primary insomnia Persistent disorder of initiating or maintaining sleep [facility]* Diagnosis Primary osteoarthritis of left knee- Primary Primary localized osteoarthrosis, lower leg [facility] Diagnosis Acute paronychia of toe of left foot- Primary [facility]* Diagnosis Paroxysmal atrial fibrillation (HCC)- Primary Atrial fibrillation DDD (degenerative disc disease), cervical Degeneration of cervical intervertebral disc Primary hypertension Unspecified essential hypertension Primary osteoarthritis of right hip Primary localized osteoarthrosis, pelvic region and thigh Chronic renal insufficiency, stage 3 (moderate) (HCC) Chronic insomnia Insomnia, unspecified Stress incontinence Female stress incontinence [facility]* Diagnosis PAD (peripheral artery disease) (HCC)- Primary Peripheral vascular disease, unspecified [facility]* Diagnosis Acute pain of right shoulder [facility]* Diagnosis Left thigh pain Pain in limb [facility] Diagnosis Acute non-recurrent maxillary sinusitis- Primary Urinary urgency Urgency of urination [facility]* Diagnosis Collagenous colitis- Primary Other and [...] Female stress incontinence [facility]* Diagnosis Recurrent UTI (urinary tract infection)- Primary Urinary tract infection, site not specified [facility]* Diagnosis Primary hypertension Unspecified essential hypertension [facility] Diagnosis Paroxysmal atrial fibrillation (HCC)- Primary Atrial fibrillation Cerebrovascular accident (CVA) due to occlusion of cerebral artery (HCC) [facility]* Diagnosis Paroxysmal atrial fibrillation (HCC)- Primary Atrial fibrillation 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 Recurrent UTI (urinary tract infection) Urinary tract infection, site not specified Primary hypertension Unspecified essential hypertension Chronic renal insufficiency, stage 3 (moderate) (HCC) documented [facility]* Diagnosis Cerebral infrc due to embolism of unsp ant cerebral artery (HCC)- Primary [facility]* Diagnosis Dysuria- Primary Confusion Unspecified psychosis Seasonal allergic rhinitis, unspecified trigger [facility]* Diagnosis Paroxysmal atrial fibrillation (HCC) Atrial fibrillation Cerebrovascular accident (CVA) due to occlusion of cerebral artery (HCC) [facility]* Diagnosis Basal ganglia hemorrhage- Primary Intracerebral hemorrhage Basal ganglia hemorrhage Intracerebral hemorrhage Cerebrovascular accident (CVA), unspecified mechanism Chronic atrial fibrillation Atrial fibrillation Dysphagia due to recent cerebrovascular accident (CVA) Atrial fibrillation, chronic Atrial fibrillation [facility] Acute CVA (cerebrovascular accident) (HCC)- Primary [facility] Additional Instructions Ice to scalp if you have any swelling. Hold your daily aspirin the next 2 days. Then you can restart it. Tylenol for pain. Return if severe headache, vomiting or not acting herself. Follow-up with your primary care provider for the diagnosis of new onset atrial fibrillation.[facility] Work Phone: InstructionsNo information available.[facility] Work Phone: Patient's home Plan of care note* Visit Details Visit Type -SN SOC Discipline -Correction Problems Problem Description Start Date Status Goals [...] Discuss all medications you are taking, even [id number] medicines, with your provider and pharmacist since [...] throughout certification period Completed SPO2 Description: Notify PROPERTY ADJUSTER J Suppan if pulse ox is <92% at rest. Problem:Physician Specific Parameters Goal:Patient to maintain parameters within physician-specified ranges throughout certification period Completed [facility]* Visit Details Visit Type -FULL SERVICE SUPERVISOR EVAL Discipline -Speech Language Pathology Problems Problem Description Start Date Status Goals Interve ntions FULL SERVICE SUPERVISOR Referral Disciplines: Skilled Services 09/22/2024 Active 1 [...] goal interventions scheduled/documente d in this visit FULL SERVICE SUPERVISOR Learning Assessment Disciplines: FULL SERVICE SUPERVISOR 09/23/2024 Active 1 goal linked to scheduled/document ed intervention 1 goal intervention scheduled/documente d in this visit FULL SERVICE SUPERVISOR Language Reading Comprehension Disciplines: FULL SERVICE SUPERVISOR 09/23/2024 Active 1 goal linked to scheduled/document ed intervention 1 goal intervention scheduled/documente d in this visit FULL SERVICE SUPERVISOR Language Auditory Comprehension Disciplines: FULL SERVICE SUPERVISOR 09/23/2024 Active 1 goal linked to scheduled/document ed intervention 1 goal intervention scheduled/documente d in this visit FULL SERVICE SUPERVISOR Language Written Expression Disciplines: FULL SERVICE SUPERVISOR 09/23/2024 Active 1 goal linked to scheduled/document ed intervention 1 goal intervention scheduled/documente d in this visit FULL SERVICE SUPERVISOR Language Verbal Expression Disciplines: FULL SERVICE SUPERVISOR 09/23/2024 Active 1 goal linked to scheduled/document ed intervention 1 goal intervention scheduled/documente d in this visit FULL SERVICE SUPERVISOR Cognition Memory Disciplines: FULL SERVICE SUPERVISOR 09/23/2024 Active 1 goal linked to scheduled/document ed intervention 1 goal intervention scheduled/documente d in this visit FULL SERVICE SUPERVISOR Cognition Executive Function/Problem Solving/Reasonin g Disciplines: FULL SERVICE SUPERVISOR 09/23/2024 Active 1 goal linked to scheduled/document ed intervention 1 goal intervention scheduled/documente d in this visit Goals Goal Associated Problem Outcome Goal Met? Visit Notes Patient will be referred to additional discipline as needed FULL SERVICE SUPERVISOR Referral No Manage discharge planning Description: Patient/caregiver [...] educational instruction, to be achieved by 10/16/24. FULL SERVICE SUPERVISOR Learning Assessment No Improve Reading Comprehension STG Description: Patient will demonstrate ability to read sentences for improved ability to function in the home and community as evidenced by pictures to sentences, comprehension questions and following written instructions with minimal cues in 80% accuracy. To be achieved by 10/16/24. FULL SERVICE SUPERVISOR Language Reading Comprehension No Improve Auditory Comprehension STG Description: Patient/caregiver will improve comprehension of following multi-step directions, complex yes/no and open ended questions with minimal cues in 80% accuracy. To be achieved by 10/09/24. FULL SERVICE SUPERVISOR Language Auditory Comprehension No Improve Written Expression STG Description: Patient will demonstrate ability to write at number and letter level for improved ability to function in the home and community as evidenced by copying and writing to dictation with moderate cues in 75% accuracy. To be achieved by 10/09/24. FULL SERVICE SUPERVISOR Language Written Expression No Improve Verbal Expression STG Description: Patient/caregiver will produce sentence completion, description, confrontation naming and response naming to indicate thoughts, wants, needs and ideas with others, with minimal verbal and semantic cues with/in 80% accuracy. To be achieved by 10/09/24. FULL SERVICE SUPERVISOR Language Verbal Expression No Improve Memory Skills STG Description: Patient/caregiver will verbalize/demonstrate awareness of memory strategies for short term memory information with minimal cues verbally and visually with/in 65% accuracy. To be achieved by 10/09/24. FULL SERVICE SUPERVISOR Cognition Memory No Improve Problem Solving or Reasoning Description: Patient will complete problem solving or reasoning tasks related to basic mathematic skills generate solutions, sequencing and situation problem solving with minimal cueing with/in 70% accuracy. To be achieved by 10/09/24. FULL SERVICE SUPERVISOR Cognition Executive Function/Problem Solving/Reasoning No Interventions Intervention Associated Problem/Goal Status Variance Visit Notes FULL SERVICE SUPERVISOR evaluation and treatment Description: ST Referral eval and treat for Impaired verbal expression and memory and establish HEP. Problem:FULL SERVICE SUPERVISOR Referral Goal:Patient will be referred to additional [...] of patient/caregiver knowledge deficit and educational instruction Problem:FULL SERVICE SUPERVISOR Learning Assessment Goal:Patient/Caregive r Demonstrates understanding of education Completed Education methods include: verbal cues. Further education required to improve knowledge and compliance with functional cognitive, language skills and home exercise program. Reading Exercise Instruction Problem:FULL SERVICE SUPERVISOR Language Reading Comprehension Goal:Improve Reading Comprehension STG Completed FULL SERVICE SUPERVISOR instructed patient/caregiver to demonstrate reading comprehension of words and sentences with completing functional reading tasks, patient/caregiver completed with minimal cues in 62% accuracy. Auditory Comprehension Instruction Problem:FULL SERVICE SUPERVISOR Language Auditory Comprehension Goal:Improve Auditory Comprehension STG Completed FULL SERVICE SUPERVISOR instructed/cued patient to complete the following tasks to improve auditory comprehension skills identify pictures and complex yes/no with no cues in 68% accuracy. Written Expression Instruction Problem:FULL SERVICE SUPERVISOR Language Written Expression Goal:Improve Written Expression STG Completed FULL SERVICE SUPERVISOR instructed patient to write numbers and letters by writing to dictation with no cues in 20% accuracy. Verbal Expression Problem:FULL SERVICE SUPERVISOR Language Verbal Expression Goal:Improve Verbal Expression STG Completed FULL SERVICE SUPERVISOR instructed patient to produce confrontation naming and response naming to indicate thoughts, wants, needs and ideas with others, with no verbal and semantic cues with/in 52% accuracy. Memory Strategy Education Memory Exercises and Techniques Problem:FULL SERVICE SUPERVISOR Cognition Memory Goal:Improve Memory Skills STG Completed Instructed patient/caregiver on use of memory strategies repetition to improve ability to recall short term memory tasks patient completed with no cueing with/in 10% accuracy. Problem Solving Reasoning Problem:FULL SERVICE SUPERVISOR Cognition Executive Function/Problem Solving/Reasoning Goal:Improve Problem Solving or Reasoning Completed Instructed patient on exercises and tasks to improve planning and self-monitoring skills for completion of tasks in home environment: basic mathematic skills generate solutions and sequencing, patient completed with no cueing with/in 10% accuracy. documented in this encounter [facility] home Plan of care note* [...] in order to resume walking around the [address] with her friends , to be [...] instructed on instructed on [facility] to [facility] (balance, eyes, face, arms, speech, time). Instruct [...] home exercise program. documented in this encounter [facility] home Plan of care note* Visit Details Visit Type -FULL SERVICE SUPERVISOR ROUTINE Discipline -Speech Language Pathology Problems Problem Description Start Date Status Goals Interve ntions Medication Education Disciplines: Skilled Services 09/22/2024 Active 1 goal linked to scheduled/document ed intervention 1 goal intervention scheduled/documente d in this visit Sepsis Disciplines: Skilled Services 09/22/2024 Active 1 goal linked to scheduled/document ed intervention 1 goal intervention scheduled/documente d in this visit FULL SERVICE SUPERVISOR Referral Disciplines: Skilled Services 09/22/2024 Active 1 [...] goal interventions scheduled/documente d in this visit FULL SERVICE SUPERVISOR Learning Assessment Disciplines: FULL SERVICE SUPERVISOR 09/23/2024 Active 1 goal linked to scheduled/document ed intervention 1 goal intervention scheduled/documente d in this visit FULL SERVICE SUPERVISOR Language Reading Comprehension Disciplines: FULL SERVICE SUPERVISOR 09/23/2024 Active 1 goal linked to scheduled/document ed intervention 1 goal intervention scheduled/documente d in this visit FULL SERVICE SUPERVISOR Language Auditory Comprehension Disciplines: FULL SERVICE SUPERVISOR 09/23/2024 Active 1 goal linked to scheduled/document ed intervention 1 goal intervention scheduled/documente d in this visit FULL SERVICE SUPERVISOR Language Verbal Expression Disciplines: FULL SERVICE SUPERVISOR 09/23/2024 Active 1 goal linked to scheduled/document ed intervention 1 goal intervention scheduled/documente d in this visit FULL SERVICE SUPERVISOR Cognition Memory Disciplines: FULL SERVICE SUPERVISOR 09/23/2024 Active 1 goal linked to scheduled/document ed intervention 1 goal intervention scheduled/documente d in this visit FULL SERVICE SUPERVISOR Cognition Executive Function/Problem Solving/Reasonin g Disciplines: FULL SERVICE SUPERVISOR 09/23/2024 Active 1 goal linked to scheduled/document [...] be referred to additional discipline as needed FULL SERVICE SUPERVISOR Referral No Manage Risk for falls Description: [...] educational instruction, to be achieved by 10/16/24. FULL SERVICE SUPERVISOR Learning Assessment No Improve Reading Comprehension STG Description: Patient will demonstrate ability to read sentences for improved ability to function in the home and community as evidenced by pictures to sentences, comprehension questions and following written instructions with minimal cues in 80% accuracy. To be achieved by 10/16/24. FULL SERVICE SUPERVISOR Language Reading Comprehension No Improve Auditory Comprehension STG Description: Patient/caregiver will improve comprehension of following multi-step directions, complex yes/no and open ended questions with minimal cues in 80% accuracy. To be achieved by 10/09/24. FULL SERVICE SUPERVISOR Language Auditory Comprehension No Improve Verbal Expression STG Description: Patient/caregiver will produce sentence completion, description, confrontation naming and response naming to indicate thoughts, wants, needs and ideas with others, with minimal verbal and semantic cues with/in 80% accuracy. To be achieved by 10/09/24. FULL SERVICE SUPERVISOR Language Verbal Expression No Improve Memory Skills STG Description: Patient/caregiver will verbalize/demonstrate awareness of memory strategies for short term memory information with minimal cues verbally and visually with/in 65% accuracy. To be achieved by 10/09/24. FULL SERVICE SUPERVISOR Cognition Memory No Improve Problem Solving or Reasoning Description: Patient will complete problem solving or reasoning tasks related to basic mathematic skills generate solutions, sequencing and situation problem solving with minimal cueing with/in 70% accuracy. To be achieved by 10/09/24. FULL SERVICE SUPERVISOR Cognition Executive Function/Problem Solving/Reasoning No Interventions Intervention [...] identify and report symptoms of sepsis Completed FULL SERVICE SUPERVISOR evaluation and treatment Description: ST Referral eval and treat for Impaired verbal expression and memory and establish HEP. Problem:FULL SERVICE SUPERVISOR Referral Goal:Patient will be referred to additional discipline as needed Completed Instruct on individual fall risk factors and strategies to prevent falls and injuries caused by falls. Problem:Risk for Falls Goal:Manage Risk for falls Completed FULL SERVICE SUPERVISOR: Patient instructed on Managing Impaired Functional Mobility: [...] Discuss all medications you are taking, even [id number] medicines, with your provider and pharmacist since [...] of patient/caregiver knowledge deficit and educational instruction Problem:FULL SERVICE SUPERVISOR Learning Assessment Goal:Patient/Caregiv er Demonstrates understanding of education Completed Education methods include: verbal cues, visual cues and teach back. Further education required to improve knowledge and compliance with functional cognitive, language skills, speech intelligibility strategies and home exercise program. Reading Exercise Instruction Problem:FULL SERVICE SUPERVISOR Language Reading Comprehension Goal:Improve Reading Comprehension STG Completed FULL SERVICE SUPERVISOR instructed patient/caregiver to demonstrate reading comprehension of phrases and sentences with matching pictures to words and comprehension questions, patient/caregiver completed with minimal cues in 80% trials. Auditory Comprehension Instruction Problem:FULL SERVICE SUPERVISOR Language Auditory Comprehension Goal:Improve Auditory Comprehension STG Completed FULL SERVICE SUPERVISOR instructed/cued patient to complete the following tasks to improve auditory comprehension skills complex yes/no, answering simple questions related to autobiographical info, comprehend Wh questions and open ended questions with minimal cues in 90% accuracy. Verbal Expression Problem:FULL SERVICE SUPERVISOR Language Verbal Expression Goal:Improve Verbal Expression STG Completed FULL SERVICE SUPERVISOR instructed patient to produce description, responses to Wh questions and responses to closed ended questions to indicate thoughts, wants, needs and ideas with others, with minimal verbal and semantic cues with/in 80% trials. Memory Strategy Education Memory Exercises and Techniques Problem:FULL SERVICE SUPERVISOR Cognition Memory Goal:Improve Memory Skills STG Completed Instructed patient/caregiver on use of memory strategies repetition, association and visual aides to improve ability to recall immediate memory tasks and short term memory tasks patient completed with moderate cueing with/in 3/4 trials. Problem Solving Reasoning Problem:FULL SERVICE SUPERVISOR Cognition Executive Function/Problem Solving/Reasoning Goal:Improve Problem Solving or Reasoning Completed Instructed patient on exercises and tasks to improve planning and self-monitoring skills for completion of tasks in home environment: situation problem solving and reasoning, patient completed with minimal cueing with/in 14/20 trials. documented in this encounter [facility] home Plan of care note* Visit Details Visit Type -BOUFFANT CURTAIN MACHINE TENDER ROUTINE Discipline -Physical Therapy Problems Problem Description [...] in order to resume walking around the [address] with her friends , to be [...] instructed on instructed on when to call [id number] (balance, eyes, face, arms, speech, time). Instruct and educate on knowledge deficits Problem:PT Learning Assessment Goal:Demonstrate understanding of education Completed patient verbalize and/or demonstrate understanding of physical therapy education including functional activity and home exercise program. Education methods include: verbal cues and visual cues. Further education required to improve knowledge and compliance with home exercise program. documented in this encounter [facility] home Plan of care note* Visit Details Visit Type -SN ROUTINE Discipline -Correction Problems Problem Description Start Date Status Goals Interve ntions Medication Education Disciplines: Skilled Services 09/22/2024 Active 1 goal linked to scheduled/docume nted intervention 1 goal intervention scheduled/documen any in this visit Sepsis Disciplines: Skilled Services 09/22/2024 Active 1 goal linked to scheduled/docume nted intervention 1 goal intervention scheduled/documen any in this visit SPRING TESTER Referral Disciplines: Skilled Services 09/22/2024 Resolved on 09/29/2024 1 goal linked to scheduled/docume nted intervention FULL SERVICE SUPERVISOR Referral Disciplines: Skilled Services 09/22/2024 Resolved on [...] be referred to additional discipline as needed SPRING TESTER Referral Completed Yes Patient will be referred to additional discipline as needed FULL SERVICE SUPERVISOR Referral Completed Yes Manage Risk for falls [...] of neurological disease process and management of fci effects and risk factors by 10/14/24,. SN [...] Discuss all medications you are taking, even rztn-xub-mikoker medicines, with your provider and pharmacist since [...] throughout certification period Completed SPO2 Description: Notify PROPERTY ADJUSTER J Suppan if pulse ox is <92% at rest. Problem:Physician Specific Parameters Goal:Patient to maintain parameters within physician-specified ranges throughout certification period Completed documented in this encounter [facility] home Plan of care note* Visit Details Visit Type -FULL SERVICE SUPERVISOR ROUTINE Discipline -Speech Language Pathology Problems Problem Description Start Date Status Goals Interve ntions Medication Education Disciplines: Skilled Services 09/22/2024 Active 1 goal linked to scheduled/document ed intervention 1 goal intervention scheduled/document ed in this visit Sepsis Disciplines: Skilled Services 09/22/2024 Active 1 goal linked to scheduled/document ed intervention 1 goal intervention scheduled/document ed in this visit FULL SERVICE SUPERVISOR Referral Disciplines: Skilled Services 09/22/2024 Resolved on [...] goal interventions scheduled/document ed in this visit FULL SERVICE SUPERVISOR Learning Assessment Disciplines: FULL SERVICE SUPERVISOR 09/23/2024 Active 1 goal linked to scheduled/document ed intervention 1 goal intervention scheduled/document ed in this visit FULL SERVICE SUPERVISOR Language Reading Comprehension Disciplines: FULL SERVICE SUPERVISOR 09/23/2024 Active 2 goals linked to scheduled/document ed interventions 2 goal interventions scheduled/document ed in this visit FULL SERVICE SUPERVISOR Language Auditory Comprehension Disciplines: FULL SERVICE SUPERVISOR 09/23/2024 Active 2 goals linked to scheduled/document ed interventions 2 goal interventions scheduled/document ed in this visit FULL SERVICE SUPERVISOR Language Verbal Expression Disciplines: FULL SERVICE SUPERVISOR 09/23/2024 Active 2 goals linked to scheduled/document ed interventions 2 goal interventions scheduled/document ed in this visit FULL SERVICE SUPERVISOR Cognition Memory Disciplines: FULL SERVICE SUPERVISOR 09/23/2024 Active 1 goal linked to scheduled/document ed intervention 1 goal intervention scheduled/document ed in this visit FULL SERVICE SUPERVISOR Cognition Executive Function/Proble m Solving/Reasoni ng Disciplines: FULL SERVICE SUPERVISOR 09/23/2024 Active 2 goals linked to scheduled/document [...] be referred to additional discipline as needed FULL SERVICE SUPERVISOR Referral No Manage Risk for falls Description: [...] educational instruction, to be achieved by 10/16/24. FULL SERVICE SUPERVISOR Learning Assessment No Improve Reading Comprehension STG Description: Patient will demonstrate ability to read sentences for improved ability to function in the home and community as evidenced by pictures to sentences, comprehension questions and following written instructions with minimal cues in 80% accuracy. To be achieved by 10/16/24. FULL SERVICE SUPERVISOR Language Reading Comprehension No Improve Reading Comprehension LTG Description: Patient will demonstrate ability to read at sentence level for improved ability to function in the home and community as evidenced by pictures to sentences, comprehension questions and following written instructions with minimal cues in 90% accuracy. To be achieved by 10/09/24. FULL SERVICE SUPERVISOR Language Reading Comprehension No Improve Auditory Comprehension STG Description: Patient/caregiver will improve comprehension of following multi-step directions, complex yes/no and open ended questions with minimal cues in 80% accuracy. To be achieved by 10/09/24. FULL SERVICE SUPERVISOR Language Auditory Comprehension No Improve Auditory Comprehension LTG Description: Patient/caregiver will demonstrate comprehension of complex conversational information to improve interaction needs with minimal cues in 90% accuracy. To be achieved by 10/16/24. FULL SERVICE SUPERVISOR Language Auditory Comprehension No Improve Verbal Expression STG Description: Patient/caregiver will produce sentence completion, description, confrontation naming and response naming to indicate thoughts, wants, needs and ideas with others, with minimal verbal and semantic cues with/in 80% accuracy. To be achieved by 10/09/24. FULL SERVICE SUPERVISOR Language Verbal Expression No Improve Verbal Expression LTG Description: Patient/caregiver will demonstrate improved verbal communication skills at a sentence level to improve communication interaction of basic social/medical needs with minimal verbal and semantic cues in 90% accuracy. To be achieved by 10/16/24. FULL SERVICE SUPERVISOR Language Verbal Expression No Improve Memory Skills STG Description: Patient/caregiver will verbalize/demonstrate awareness of memory strategies for short term memory information with minimal cues verbally and visually with/in 65% accuracy. To be achieved by 10/09/24. FULL SERVICE SUPERVISOR Cognition Memory No Improve Problem Solving or Reasoning Description: Patient will complete problem solving or reasoning tasks related to basic mathematic skills generate solutions, sequencing and situation problem solving with minimal cueing with/in 70% accuracy. To be achieved by 10/09/24. FULL SERVICE SUPERVISOR Cognition Executive Function/Problem Solving/Reasoning No Improve Executive Function, Problem Solving And Reasoning LTG Description: Patient will demonstrate ability to use strategies and techniques to improve planning and self monitoring skills, problem solving and reasoning skills for completion of tasks in home environment: home maintenance and medication management with minimal cueing with/in 70% accuracy, to improve independence. To be achieved by 10/16/24. FULL SERVICE SUPERVISOR Cognition Executive Function/Problem Solving/Reasoning No Interventions Intervention [...] identify and report symptoms of sepsis Completed FULL SERVICE SUPERVISOR evaluation and treatment Description: ST Referral eval and treat for Impaired verbal expression and memory and establish HEP. Problem:FULL SERVICE SUPERVISOR Referral Goal:Patient will be referred to additional discipline as needed Completed Instruct on individual fall risk factors and strategies to prevent falls and injuries caused by falls. Problem:Risk for Falls Goal:Manage Risk for falls Completed FULL SERVICE SUPERVISOR: Patient instructed on Managing Impaired Functional Mobility: [...] Discuss all medications you are taking, even qtwy-yus-[id number] medicines, with your provider and pharmacist since [...] of patient/caregiver knowledge deficit and educational instruction Problem:FULL SERVICE SUPERVISOR Learning Assessment Goal:Patient/Caregive r Demonstrates understanding of education Completed Education methods include: verbal cues, written instructions, visual cues and teach back. Further education required to improve knowledge and compliance with functional cognitive and language skills. Reading Exercise Instruction Problem:FULL SERVICE SUPERVISOR Language Reading Comprehension Goal:Improve Reading Comprehension STG Completed FULL SERVICE SUPERVISOR instructed patient/caregiver to demonstrate reading comprehension of sentences and paragraphs with comprehension questions, patient/caregiver completed with no cues in 10/10 trials. Reading Exercise Instruction Problem:FULL SERVICE SUPERVISOR Language Reading Comprehension Goal:Improve Reading Comprehension LTG Completed FULL SERVICE SUPERVISOR instructed patient/caregiver to demonstrate reading comprehension of sentences and paragraphs with comprehension questions, patient/caregiver completed with minimal cues in 10/10 trials. Auditory Comprehension Instruction Problem:FULL SERVICE SUPERVISOR Language Auditory Comprehension Goal:Improve Auditory Comprehension STG Completed FULL SERVICE SUPERVISOR instructed/cued patient to complete the following tasks to improve auditory comprehension skills complex yes/no, comprehend Wh questions, open ended questions and closed ended questions with minimal cues in 10/10 trials. Auditory Comprehension Instruction Problem:FULL SERVICE SUPERVISOR Language Auditory Comprehension Goal:Improve Auditory Comprehension LTG Completed FULL SERVICE SUPERVISOR instructed/cued patient to complete the following tasks to improve auditory comprehension skills complex yes/no, comprehend Wh questions, open ended questions and closed ended questions with minimal cues in 100% trials. Verbal Expression Problem:FULL SERVICE SUPERVISOR Language Verbal Expression Goal:Improve Verbal Expression STG Completed FULL SERVICE SUPERVISOR instructed patient to produce description, responses to Wh questions, responses to open ended questions, responses to closed ended questions and confrontation naming to indicate thoughts, wants, needs and ideas with others, with minimal verbal cues with/in 8/10 trials. Verbal Expression Problem:FULL SERVICE SUPERVISOR Language Verbal Expression Goal:Improve Verbal Expression LTG Completed FULL SERVICE SUPERVISOR instructed patient to produce description, responses to Wh questions, responses to open ended questions and responses to closed ended questions to indicate thoughts, wants, needs and ideas with others, with minimal verbal and semantic cues with/in 8/10 trials. Memory Strategy Education Memory Exercises and Techniques Problem:FULL SERVICE SUPERVISOR Cognition Memory Goal:Improve Memory Skills STG Completed Instructed patient/caregiver on use of memory strategies writing, repetition, association and calendar to improve ability to recall immediate memory tasks and short term memory tasks patient completed with minimal cueing with/in 10/12 trials. Problem Solving Reasoning Problem:FULL SERVICE SUPERVISOR Cognition Executive Function/Problem Solving/Reasoning Goal:Improve Problem Solving or Reasoning Completed Instructed patient on exercises and tasks to improve planning and self-monitoring skills for completion of tasks in home environment: cause and effect and reasoning, patient completed with minimal cueing with/in 7/7 trials. Executive Function Problem Solving Reasoning Problem:FULL SERVICE SUPERVISOR Cognition Executive Function/Problem Solving/Reasoning Goal:Improve Executive Function, Problem Solving And Reasoning LTG Completed FULL SERVICE SUPERVISOR instructed patient to complete exercises for improved problem solving and reasoning skills for completion of tasks in home environment bill paying, shopping, home maintenance, medication management, cell phone use and scheduling with moderate cueing, patient able to complete with/in 5/7 trials. documented in this encounter [facility] home Plan of care note* [...] and shower chair. [facility] Visit Details Visit Type -BOUFFANT CURTAIN MACHINE TENDER ROUTINE Discipline -Physical Therapy Problems Problem Description [...] in order to resume walking around the [address] with her friends , to be [...] home exercise program. documented in this encounter [facility] home Plan of care note* Visit Details Visit Type -FULL SERVICE SUPERVISOR ROUTINE Discipline -Speech Language Pathology Problems Problem [...] goal interventions scheduled/document ed in this visit FULL SERVICE SUPERVISOR Learning Assessment Disciplines: FULL SERVICE SUPERVISOR 09/23/2024 Active 1 goal linked to scheduled/document ed intervention 1 goal intervention scheduled/document ed in this visit FULL SERVICE SUPERVISOR Language Auditory Comprehension Disciplines: FULL SERVICE SUPERVISOR 09/23/2024 Resolved on 10/04/2024 2 goals linked to scheduled/document ed interventions 2 goal interventions scheduled/document ed in this visit FULL SERVICE SUPERVISOR Language Verbal Expression Disciplines: FULL SERVICE SUPERVISOR 09/23/2024 Active 2 goals linked to scheduled/document ed interventions 2 goal interventions scheduled/document ed in this visit FULL SERVICE SUPERVISOR Cognition Memory Disciplines: FULL SERVICE SUPERVISOR 09/23/2024 Active 1 goal linked to scheduled/document ed intervention 1 goal intervention scheduled/document ed in this visit FULL SERVICE SUPERVISOR Cognition Executive Function/Proble m Solving/Reasoni ng Disciplines: FULL SERVICE SUPERVISOR 09/23/2024 Active 2 goals linked to scheduled/document [...] educational instruction, to be achieved by 10/16/24. FULL SERVICE SUPERVISOR Learning Assessment No Improve Auditory Comprehension STG Description: Patient/caregiver will improve comprehension of following multi-step directions, complex yes/no and open ended questions with minimal cues in 80% accuracy. To be achieved by 10/09/24. FULL SERVICE SUPERVISOR Language Auditory Comprehension Completed Yes Goal met Improve Auditory Comprehension LTG Description: Patient/caregiver will demonstrate comprehension of complex conversational information to improve interaction needs with minimal cues in 90% accuracy. To be achieved by 10/16/24. FULL SERVICE SUPERVISOR Language Auditory Comprehension Completed Yes Goal met Improve Verbal Expression STG Description: Patient/caregiver will produce sentence completion, description, confrontation naming and response naming to indicate thoughts, wants, needs and ideas with others, with minimal verbal and semantic cues with/in 80% accuracy. To be achieved by 10/09/24. FULL SERVICE SUPERVISOR Language Verbal Expression No Improve Verbal Expression LTG Description: Patient/caregiver will demonstrate improved verbal communication skills at a sentence level to improve communication interaction of basic social/medical needs with minimal verbal and semantic cues in 90% accuracy. To be achieved by 10/16/24. FULL SERVICE SUPERVISOR Language Verbal Expression No Improve Memory Skills STG Description: Patient/caregiver will verbalize/demonstrate awareness of memory strategies for short term memory information with minimal cues verbally and visually with/in 65% accuracy. To be achieved by 10/09/24. FULL SERVICE SUPERVISOR Cognition Memory No Improve Problem Solving or Reasoning Description: Patient will complete problem solving or reasoning tasks related to basic mathematic skills generate solutions, sequencing and situation problem solving with minimal cueing with/in 70% accuracy. To be achieved by 10/09/24. FULL SERVICE SUPERVISOR Cognition Executive Function/Problem Solving/Reasoning No Improve Executive Function, Problem Solving And Reasoning LTG Description: Patient will demonstrate ability to use strategies and techniques to improve planning and self monitoring skills, problem solving and reasoning skills for completion of tasks in home environment: home maintenance and medication management with minimal cueing with/in 70% accuracy, to improve independence. To be achieved by 10/16/24. FULL SERVICE SUPERVISOR Cognition Executive Function/Problem Solving/Reasoning No Interventions Intervention [...] for Falls Goal:Manage Risk for falls Completed FULL SERVICE SUPERVISOR: Patient instructed on Managing Impaired Functional Mobility: [...] Discuss all medications you are taking, even owaq-eob-ykqyptl medicines, with your provider and pharmacist since [...] of patient/caregiver knowledge deficit and educational instruction Problem:FULL SERVICE SUPERVISOR Learning Assessment Goal:Patient/Caregiv er Demonstrates understanding of education Completed Education methods include: verbal cues, written instructions and teach back. Further education required to improve knowledge and compliance with functional cognitive and home exercise program. Auditory Comprehension Instruction Problem:FULL SERVICE SUPERVISOR Language Auditory Comprehension Goal:Improve Auditory Comprehension STG Completed FULL SERVICE SUPERVISOR instructed/cued patient to complete the following tasks to improve auditory comprehension skills following multi-step directions, complex yes/no, answering questions related to autobiographical info, open ended questions and closed ended questions with no cues in 10/10 trials. Auditory Comprehension Instruction Problem:FULL SERVICE SUPERVISOR Language Auditory Comprehension Goal:Improve Auditory Comprehension LTG Completed FULL SERVICE SUPERVISOR instructed/cued patient to complete the following tasks to improve auditory comprehension skills following multi-step directions, complex yes/no, answering questions related to autobiographical info, comprehend Wh questions, open ended questions and closed ended questions with no cues in 10/10 trials. Verbal Expression Problem:FULL SERVICE SUPERVISOR Language Verbal Expression Goal:Improve Verbal Expression STG Completed FULL SERVICE SUPERVISOR instructed patient to produce responses to autobiographical questions, responses to Wh questions and response naming to indicate thoughts, wants, needs and ideas with others, with minimal verbal and semantic cues with/in 70% trials. Verbal Expression Problem:FULL SERVICE SUPERVISOR Language Verbal Expression Goal:Improve Verbal Expression LTG Completed FULL SERVICE SUPERVISOR instructed patient to produce responses to autobiographical questions, responses to Wh questions and response naming to indicate thoughts, wants, needs and ideas with others, with minimal verbal and semantic cues with/in 70% trials. Memory Strategy Education Memory Exercises and Techniques Problem:FULL SERVICE SUPERVISOR Cognition Memory Goal:Improve Memory Skills STG Completed Instructed patient/caregiver on use of memory strategies writing, repetition, association, visual aides, calendar, written visual cues and dry erase board to improve ability to recall short term memory tasks patient completed with minimal moderate cueing with/in 3/5 opportunities. Problem Solving Reasoning Problem:FULL SERVICE SUPERVISOR Cognition Executive Function/Problem Solving/Reasoning Goal:Improve Problem Solving or Reasoning Completed Instructed patient on exercises and tasks to improve planning and self-monitoring skills for completion of tasks in home environment: sequencing, patient completed with moderate cueing with/in 70% trials. Executive Function Problem Solving Reasoning Problem:FULL SERVICE SUPERVISOR Cognition Executive Function/Problem Solving/Reasoning Goal:Improve Executive Function, Problem Solving And Reasoning LTG Completed FULL SERVICE SUPERVISOR instructed patient to complete exercises for improved problem solving for completion of tasks in home environment medication management and cell phone use with moderate cueing, patient able to complete with/in 70% accuracy. documented in this encounter [facility] home Plan of care note* Visit Details Visit Type -SN DISC DC W VIS IT Discipline -Correction Problems Problem Description Start Date Status Goals [...] Discuss all medications you are taking, even kfnp-tus-utpdyli medicines, with your provider and pharmacist since [...] patient and/or caregiver on neurological disease process, fci effects, and effective management strategies Description: Patient [...] certification period Completed documented in this encounter [facility] home Plan of care note* [...] achieved by 10/30/24 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 [...] hand theraputty exercises including: putty rolling, full ice cream van vendor, fingertip pinch and finger/thumb opposition with Green [...] to call 911. documented in this encounter [facility] home Plan of care note* Visit Details Visit Type -FULL SERVICE SUPERVISOR ROUTINE Discipline -Speech Language Pathology Problems Problem [...] goal interventions scheduled/documente d in this visit FULL SERVICE SUPERVISOR Learning Assessment Disciplines: FULL SERVICE SUPERVISOR 09/23/2024 Active 1 goal linked to scheduled/documente d intervention 1 goal intervention scheduled/documente d in this visit FULL SERVICE SUPERVISOR Cognition Memory Disciplines: FULL SERVICE SUPERVISOR 09/23/2024 Active 1 goal linked to scheduled/documente d intervention 1 goal intervention scheduled/documente d in this visit FULL SERVICE SUPERVISOR Cognition Executive Function/Proble m Solving/Reasoni ng Disciplines: FULL SERVICE SUPERVISOR 09/23/2024 Active 2 goals linked to scheduled/documente [...] educational instruction, to be achieved by 10/16/24. FULL SERVICE SUPERVISOR Learning Assessment No Improve Memory Skills STG Description: Patient/caregiver will verbalize/demonstrate awareness of memory strategies for short term memory information with minimal cues verbally and visually with/in 65% accuracy. To be achieved by 10/09/24. FULL SERVICE SUPERVISOR Cognition Memory No Improve Problem Solving or Reasoning Description: Patient will complete problem solving or reasoning tasks related to basic mathematic skills generate solutions, sequencing and situation problem solving with minimal cueing with/in 70% accuracy. To be achieved by 10/09/24. FULL SERVICE SUPERVISOR Cognition Executive Function/Problem Solving/Reasoning No Improve Executive Function, Problem Solving And Reasoning LTG Description: Patient will demonstrate ability to use strategies and techniques to improve planning and self monitoring skills, problem solving and reasoning skills for completion of tasks in home environment: home maintenance and medication management with minimal cueing with/in 70% accuracy, to improve independence. To be achieved by 10/16/24. FULL SERVICE SUPERVISOR Cognition Executive Function/Problem Solving/Reasoning No Interventions Intervention [...] for Falls Goal:Manage Risk for falls Completed FULL SERVICE SUPERVISOR: Patient and Caregiver instructed on Managing Impaired [...] Discuss all medications you are taking, even qsnz-nst-vgrzztn medicines, with your provider and pharmacist since [...] of patient/caregiver knowledge deficit and educational instruction Problem:FULL SERVICE SUPERVISOR Learning Assessment Goal:Patient/Caregive r Demonstrates understanding of education Completed Education methods include: verbal cues, written instructions, visual cues and teach back. Further education required to improve knowledge and compliance with functional cognitive and home exercise program. Memory Strategy Education Memory Exercises and Techniques Problem:FULL SERVICE SUPERVISOR Cognition Memory Goal:Improve Memory Skills STG Completed Instructed patient/caregiver on use of memory strategies writing and repetition to improve ability to recall immediate memory tasks and short term memory tasks patient completed with minimal cueing with/in 90% opportunities. Problem Solving Reasoning Problem:FULL SERVICE SUPERVISOR Cognition Executive Function/Problem Solving/Reasoning Goal:Improve Problem Solving or Reasoning Completed Instructed patient on exercises and tasks to improve planning and self-monitoring skills for completion of tasks in home environment: Reasoning, situation problem solving and reasoning, patient completed with moderate cueing with/in 80% trials. Executive Function Problem Solving Reasoning Problem:FULL SERVICE SUPERVISOR Cognition Executive Function/Problem Solving/Reasoning Goal:Improve Executive Function, Problem Solving And Reasoning LTG Completed FULL SERVICE SUPERVISOR instructed patient to complete exercises for improved problem solving and reasoning skills for completion of tasks in home environment cell phone use with moderate cueing, patient able to complete with/in 80% trials. documented in this encounter [facility]'s home Plan of care note* [...] throughout certification period Completed SPO2 Description: Notify PROPERTY ADJUSTER J Suppan if pulse ox is <92% [...] and energy conservation. 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 [...] to: caregiver assistance. Heart Rate Description: Notify PROPERTY ADJUSTER Codey Suppsamantha if heart rate < 60 or > 120 at rest. Problem:Physician Specific Parameters Goal:Patient to maintain parameters within physician-specified ranges throughout certification period Completed Blood Pressure Description: Notify PROPERTY ADJUSTER Dotty Suppan if resting SBP is <100 [...] to call provider. [facility] [...] in order to resume walking around the [address] with her friends , to be [...] ex. completes with assist of private duty CHIROPRACTOR ASSISTANT Physical Therapy Transfer Training Problem:PT Impaired mobility [...] and written instructions. documented in this encounter [facility]'s home Plan of care note* [...] and energy conservation. documented in this encounter [facility]'s home Plan of care note* Visit Details Visit Type -FULL SERVICE SUPERVISOR ROUTINE Discipline -Speech Language Pathology Problems Problem Description Start Date Status Goals Interve ntions Discharge Disciplines: Skilled Services 09/22/2024 Active 1 goal linked to scheduled/document ed intervention 1 goal intervention scheduled/documente d in this visit Physician Specific Parameters Disciplines: Skilled Services 09/22/2024 Active 1 goal linked to scheduled/document ed intervention 3 goal interventions scheduled/documente d in this visit FULL SERVICE SUPERVISOR Learning Assessment Disciplines: FULL SERVICE SUPERVISOR 09/23/2024 Active 1 goal linked to scheduled/document ed intervention 1 goal intervention scheduled/documente d in this visit FULL SERVICE SUPERVISOR Language Reading Comprehension Disciplines: FULL SERVICE SUPERVISOR 09/23/2024 Active 1 goal linked to scheduled/document ed intervention 1 goal intervention scheduled/documente d in this visit FULL SERVICE SUPERVISOR Language Verbal Expression Disciplines: FULL SERVICE SUPERVISOR 09/23/2024 Active 1 goal linked to scheduled/document [...] be achieved by 10/16/24, extended to 11/13/24. FULL SERVICE SUPERVISOR Learning Assessment No Improve Reading Comprehension STG Description: Patient will demonstrate ability to read sentences for improved ability to function in the home and community as evidenced by pictures to sentences, comprehension questions and following written instructions with minimal cues in 80% accuracy. To be achieved by 10/16/24, extended to 11/06/24. FULL SERVICE SUPERVISOR Language Reading Comprehension No Improve Verbal Expression STG Description: Patient/caregiver will produce sentence completion, description, confrontation naming and response naming to indicate thoughts, wants, needs and ideas with others, with minimal verbal and semantic cues with/in 80% accuracy. To be achieved by 10/09/24, extended to 11/06/24. FULL SERVICE SUPERVISOR Language Verbal Expression No Interventions Intervention Associated [...] of patient/caregiver knowledge deficit and educational instruction Problem:FULL SERVICE SUPERVISOR Learning Assessment Goal:Patient/Caregiver Demonstrates understanding of education Completed Education methods include: verbal cues and visual cues. Further education required to improve knowledge and compliance with functional cognitive, language skills and home exercise program. Reading Exercise Instruction Problem:FULL SERVICE SUPERVISOR Language Reading Comprehension Goal:Improve Reading Comprehension STG Completed FULL SERVICE SUPERVISOR instructed patient/caregiver to demonstrate reading comprehension of sentences with completing functional reading tasks, patient/caregiver completed with minimal cues in 78% accuracy. Verbal Expression Problem:FULL SERVICE SUPERVISOR Language Verbal Expression Goal:Improve Verbal Expression STG Completed FULL SERVICE SUPERVISOR instructed patient to produce description, confrontation naming and response naming to indicate thoughts, wants, needs and ideas with others, with moderate verbal and semantic cues with/in 78% accuracy. documented in this encounter [facility]'s home Plan of care note* Visit Details Visit Type -FULL SERVICE SUPERVISOR REASSESSMENT Discipline -Speech Language Pathology Problems Problem Description Start Date Status Goals Interve ntions Discharge Disciplines: Skilled Services 09/22/2024 Active 1 goal linked to scheduled/document ed intervention 1 goal intervention scheduled/documente d in this visit Physician Specific Parameters Disciplines: Skilled Services 09/22/2024 Active 1 goal linked to scheduled/document ed intervention 3 goal interventions scheduled/documente d in this visit FULL SERVICE SUPERVISOR Learning Assessment Disciplines: FULL SERVICE SUPERVISOR 09/23/2024 Active 1 goal linked to scheduled/document ed intervention 1 goal intervention scheduled/documente d in this visit FULL SERVICE SUPERVISOR Language Reading Comprehension Disciplines: FULL SERVICE SUPERVISOR 09/23/2024 Active 1 goal linked to scheduled/document ed intervention 1 goal intervention scheduled/documente d in this visit FULL SERVICE SUPERVISOR Language Written Expression Disciplines: FULL SERVICE SUPERVISOR 09/23/2024 Active 1 goal linked to scheduled/document ed intervention 1 goal intervention scheduled/documente d in this visit FULL SERVICE SUPERVISOR Language Verbal Expression Disciplines: FULL SERVICE SUPERVISOR 09/23/2024 Active 1 goal linked to scheduled/document ed intervention 1 goal intervention scheduled/documente d in this visit FULL SERVICE SUPERVISOR Cognition Memory Disciplines: FULL SERVICE SUPERVISOR 09/23/2024 Active 1 goal linked to scheduled/document ed intervention 1 goal intervention scheduled/documente d in this visit FULL SERVICE SUPERVISOR Cognition Executive Function/Problem Solving/Reasonin g Disciplines: FULL SERVICE SUPERVISOR 09/23/2024 Active 1 goal linked to scheduled/document ed intervention 1 goal intervention scheduled/documente d in this visit FULL SERVICE SUPERVISOR Speech Production/Intel ligibility Disciplines: FULL SERVICE SUPERVISOR 10/14/2024 Active 1 goal linked to scheduled/document [...] be achieved by 10/16/24, extended to 11/13/24. FULL SERVICE SUPERVISOR Learning Assessment No Improve Reading Comprehension STG Description: Patient will demonstrate ability to read sentences for improved ability to function in the home and community as evidenced by pictures to sentences, comprehension questions and following written instructions with minimal cues in 80% accuracy. To be achieved by 10/16/24, extended to 11/06/24. FULL SERVICE SUPERVISOR Language Reading Comprehension No Improve Written Expression STG Description: Patient will demonstrate ability to write at number and letter level for improved ability to function in the home and community as evidenced by copying and writing to dictation with moderate cues in 75% accuracy. To be achieved by 10/09/24, extended to 11/06/24. FULL SERVICE SUPERVISOR Language Written Expression No Improve Verbal Expression STG Description: Patient/caregiver will produce sentence completion, description, confrontation naming and response naming to indicate thoughts, wants, needs and ideas with others, with minimal verbal and semantic cues with/in 80% accuracy. To be achieved by 10/09/24, extended to 11/06/24. FULL SERVICE SUPERVISOR Language Verbal Expression No Improve Memory Skills STG Description: Patient/caregiver will verbalize/demonstrate awareness of memory strategies for short term memory information with minimal cues verbally and visually with/in 65% accuracy. To be achieved by 10/09/24, extended to 11/06/24. FULL SERVICE SUPERVISOR Cognition Memory No Improve Problem Solving or Reasoning Description: Patient will complete problem solving or reasoning tasks related to basic mathematic skills generate solutions, sequencing and situation problem solving with minimal cueing with/in 70% accuracy. To be achieved by 10/09/24, extended to 11/06/24. FULL SERVICE SUPERVISOR Cognition Executive Function/Problem Solving/Reasoning No Improve Articulation and Intelligiblity Description: Patient will demonstrate improved production of conversation and social communication with appropriate articulator placement or use of compensatory strategies with minimal cues with/in 80% accuracy. To be achieved by 11/13/24. FULL SERVICE SUPERVISOR Speech Production/Intelligibility No Interventions Intervention Associated Problem/Goal [...] of patient/caregiver knowledge deficit and educational instruction Problem:FULL SERVICE SUPERVISOR Learning Assessment Goal:Patient/Caregive r Demonstrates understanding of education Completed Education methods include: verbal cues. Further education required to improve knowledge and compliance with functional cognitive, language skills, speech intelligibility strategies and home exercise program. Reading Exercise Instruction Problem:FULL SERVICE SUPERVISOR Language Reading Comprehension Goal:Improve Reading Comprehension STG Completed FULL SERVICE SUPERVISOR instructed patient/caregiver to demonstrate reading comprehension of words with completing functional reading tasks, patient/caregiver completed with minimal cues in 72% accuracy. Written Expression Instruction Problem:FULL SERVICE SUPERVISOR Language Written Expression Goal:Improve Written Expression STG Completed FULL SERVICE SUPERVISOR instructed patient to write letters by independently writing: letters with minimal cues in 20% accuracy. Verbal Expression Problem:FULL SERVICE SUPERVISOR Language Verbal Expression Goal:Improve Verbal Expression STG Completed FULL SERVICE SUPERVISOR instructed patient to produce description, confrontation naming and response naming to indicate thoughts, wants, needs and ideas with others, with minimal verbal and semantic cues with/in 68% accuracy. Memory Strategy Education Memory Exercises and Techniques Problem:FULL SERVICE SUPERVISOR Cognition Memory Goal:Improve Memory Skills STG Completed Instructed patient/caregiver on use of memory strategies writing, repetition and association to improve ability to recall short term memory tasks patient completed with minimal cueing with/in 40% accuracy. Problem Solving Reasoning Problem:FULL SERVICE SUPERVISOR Cognition Executive Function/Problem Solving/Reasoning Goal:Improve Problem Solving or Reasoning Completed Instructed patient on exercises and tasks to improve planning and self-monitoring skills for completion of tasks in home environment: sequencing, cause and effect and reasoning, patient completed with minimal cueing with/in 60% accuracy. Articulation Instruction Intelligibility Training Motor Planning Precision Training Speech Intelligiblity Exercise Problem:FULL SERVICE SUPERVISOR Speech Production/Intelligib ility Goal:Improve Articulation and Intelligiblity Completed FULL SERVICE SUPERVISOR instructed patient to use the SOS method (slow down, overarticulate, speak up) in conversation with minimal cues with/in 70% accuracy. documented in this encounter [facility] for referral (narrative)* Outpatient Procedure (Routine) - Closed Specialty Diagnoses / Procedures Referred By Contac t Referred To Contact [facility] Diagnoses Paroxysmal atrial fibrillation (HCC) Procedures ECG COMPLETE ECG ROUTINE ECG W/LEAST 12 LDS W/I&R Sandra Horne MD [address] [place] [address] [facility] [place] [id number] Referral ID Status Reason Start Date Expiration Date V isits Requested Visits Authorized [id number] Closed Auto-Generate d Referral 12/24/2022 12/24/2023 1 1 [facility] for referral (narrative)* Outpatient Procedure (Routine) - Pending Review Specialty Diagnoses / Procedures Referred By Contac t Referred To Contact [facility] Diagnoses Right carotid bruit Procedures US CAROTID ARTERIES CECI VAS LAB DUPLEX SCAN EXTRACRANIAL ART COMPL BI STUDY Breann Schmitz APRN.PROPERTY ADJUSTER [address] [place] [address] [address] Referral ID Status Reason Start Date Expiration Date Visits Requested Visits Authorized [id number] Pending Review Auto-Generat ed Referral 05/26/2023 05/25/2024 1 1 * MRI/CT (Urgent) - Authorized Specialty Diagnoses / Procedures [facility] Diagnoses Transient cerebral ischemia, unspecified type Procedures CT BRAIN WO IVCON CT HEAD/BRAIN W/O CONTRAST MATERIAL Breann Schmitz APRN.PROPERTY ADJUSTER [address] [place] [address] [place] [address] Referral ID Status Reason Start Date Expiration Date Visits Requested Visits Authorized [id number] Authorized Auto-Generat ed Referral 05/26/2023 06/24/2024 1 1 [facility] for referral (narrative)* Diagnostic Procedure Only (Routine) - Closed Specialty Diagnoses / Procedures Referred By Contac t Referred To Contact XR IMAGING Diagnoses Pain Procedures XR KNEE GENERAL 4V AP BOTH/PA BOTH/LAT/MERC LEFT RADIOLOGIC EXAM KNEE COMPLETE 4/MORE VIEWS Tamia Quezada PA-C [address] [place] [address] [place] [address] Referral ID Status Reason Start Date Expiration Date V isits Requested Visits Authorized [id number] Closed Auto-Generate d Referral 05/13/2023 06/11/2024 1 1 [facility] for referral (narrative)* Diagnostic Procedure Only (Routine) - Closed Specialty Diagnoses / Procedures Referred By Contac t Referred To Contact XR IMAGING Diagnoses Acute pain of right shoulder Procedures XR SHOULDER [id number] AP/TRUE AP RIGHT RADEX SHOULDER COMPLETE MINIMUM 2 VIEWS Jose G Harrington PA-C [address] [place] [address] [place] [address] Referral ID Status Reason Start Date Expiration Date V isits Requested Visits Authorized [id number] Closed Auto-Generate d Referral 03/31/2023 04/29/2024 1 1 [facility] for referral (narrative)* Diagnostic Procedure Only (Routine) - Closed Specialty Diagnoses / Procedures Referred By Contac t Referred To Contact XR IMAGING Diagnoses Left thigh pain Procedures XR FEMUR GENERAL 2V AP/LAT LEFT RADIOLOGIC EXAMINATION FEMUR MINIMUM 2 VIEWS Breann Schmitz APRN.CNP [address] [place] [address] [place] [address] Referral ID Status Reason Start Date Expiration Date V isits Requested Visits Authorized [id number] Closed Auto-Generate d Referral 06/13/2021 07/13/2022 1 1 * Diagnostic Procedure Only (Routine) - Closed Specialty Diagnoses / Procedures Referred By Contac t Referred To Contact XR IMAGING Diagnoses Left thigh pain Procedures XR HIP GENERAL 3V PELV/AP/LAT LEFT RADEX HIP UNILATERAL WITH PELVIS 2-3 VIEWS Breann Schmitz APRN.CNP [address] [place] [address] [place] [address] Referral ID Status Reason Start Date Expiration Date V isits Requested Visits Authorized [id number] Closed Auto-Generate d Referral 06/13/2021 07/13/2022 1 1 [facility] for referral (narrative)No reason for referral [facility]: Reason for visit Narrative* Diagnostic Procedure Only (Routine) - Closed Specialty Diagnoses / Procedures Referred By Contac t Referred To Contact XR IMAGING Diagnoses Pain Procedures XR KNEE GENERAL 4V AP BOTH/PA BOTH/LAT/MERC LEFT RADIOLOGIC EXAM KNEE COMPLETE 4/MORE VIEWS Tamia Quezada PA-C [address] [place] [address] [place] [address] Referral ID Status Reason Start Date Expiration Date V isits Requested Visits Authorized [id number] Closed Auto-Generate d Referral 05/13/2023 06/11/2024 1 1 [facility] for visit Narrative* Diagnostic Procedure Only (Routine) - Closed Specialty Diagnoses / Procedures Referred By Contac t Referred To Contact XR IMAGING Diagnoses Acute pain of right shoulder Procedures XR SHOULDER [id number] AP/TRUE AP RIGHT RADEX SHOULDER COMPLETE MINIMUM 2 VIEWS Jose G Harrington PA-C [address] [place] [address] [place] [address] Referral ID Status Reason Start Date Expiration Date V isits Requested Visits Authorized [id number] Closed Auto-Generate d Referral 03/31/2023 04/29/2024 1 [facility] Diagnostic Procedure Only (Routine) - Closed Specialty Diagnoses / Procedures Referred By Contac t Referred To Contact XR IMAGING Diagnoses Left thigh pain Procedures XR FEMUR GENERAL 2V AP/LAT LEFT RADIOLOGIC EXAMINATION FEMUR MINIMUM 2 VIEWS Breann Schmitz, EAN.PROPERTY ADJUSTER [address] [place] [address] [place] [address] Referral ID Status Reason Start Date Expiration Date V isits Requested Visits Authorized [id number] Closed Auto-Generate d Referral 06/13/2021 07/13/2022 1 1 [facility] Auth/Cert (Routine) Specialty Diagnoses / Procedures Referred By Contac t Referred To Contact [facility] [address] [place] [address] Phone: tel: Referral ID Status Reason Start Date Expiration Date Visits Re quested Visits Authorized [id number] 1 1 [facility] Summary Purpose Family History No Family History Records Found Relationship Condition Age at Onset Recorded Date/T ofe mother Malignant neoplasm Unknown Hypertension Unknown Cerebrovascular accident (CVA) Unknown father Cardiac disease Unknown brother Ischemic heart disease Unknown sister Hypertension Unknown Diabetes mellitus Unknown Advance Directives No Advanced Directives Records FoundDocuments on File Type Date Recorded 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 Advance Directive(s) 09/01/2020 6:44 AM Advance Directive(s) 08/24/2020 1:37 PM Advance Directive(s) 12/26/2016 9:06 AM Advance Directive(s) 10/03/2014 6:18 AM Advance Directive(s) 05/30/2011 8:35 AM Advance Directive Response Recorded Date/ Time Living Will Yes April 07, 022 9:24pm Power of Automotive Warranty Administrator Yes April 07, 2022 9:24pm Name of Medical Power of Automotive Warranty Administrator arlyn carvalho April 07, 2022 9:24pm Documents on File Type Date Recorded 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 Yes August 16, 2024 4:44pm Do you have a Healthcare Power of Automotive Warranty Administrator? No August 18, 2024 10:51am Advance Directive Response Recorded Date/ Time Do you have a Healthcare Power of Automotive Warranty Administrator? Yes August 16, 2024 4:44pm Do you have a Healthcare Power of Automotive Warranty Administrator? No August 18, 2024 3:53pm Advance Directive Response Recorded Date/ Time Do you have a Healthcare Pow er of Automotive Warranty Administrator? Yes August 16, 2024 4:44pm Do you have a Healthcare Pow er of Automotive Warranty Administrator? No August 18, 2024 3:53pm Do you have a Healthcare Pow er of Automotive Warranty Administrator? Yes August 23, 2024 11:37am Name of Medical Power of Automotive Warranty Administrator Aditi Hampton er, daughter August 23, 2024 11:37am Date Activated Date Inactivated Comments 09/22/2024 6:00 PM Date Activated Date Inactivated Comments 09/22/2024 6:00 PM Advance Directive Response Recorded Date/ Time Do you have a Healthcare Pow er of Automotive Warranty Administrator? Yes August 16, 2024 4:44pm Do you have a Healthcare Pow er of Automotive Warranty Administrator? No August 18, 2024 3:53pm Do you have a Healthcare Pow er of Automotive Warranty Administrator? Yes August 23, 2024 11:37am Name of Medical Power of Automotive Warranty Administrator Aditi mann, daughter August 23, 2024 11:37am Do you have a Healthcare Pow er of Automotive Warranty Administrator? 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 Advance Directives/Living Will 01/21/2008 Date [...] fibrillation (HCC) Procedures CONSULT TO CARDIOLOGY OFFICE/OUTPATIENT [facility] 60-74 MINUTES Jose G Harrington PA-C [address] [place] [address] Referral ID Status Reason Start Date Expiration Date Visits Requested Visits Authorized [id number] Pending Review PCP Requested Referral 04/11/2023 1 1 Specialty Diagnoses / Procedures Referred By Contac t [facility] Diagnoses Paroxysmal atrial fibrillation (HCC) Procedures ECHO ECHO TTHRC R-T 2D W/WOM-MODE COMPL SPEC&COLR D Jose G Harrington PA-C [address] [place] [address] [facility] [address] [place] [address] Referral ID Status Reason Start Date Expiration Date V isits Requested Visits Authorized [id number] Closed Auto-Generate d Referral 04/11/2022 04/11/2023 1 1 Specialty Diagnoses / Procedures Referred By Contac t Referred To Contact CT IMAGING Diagnoses Transient cerebral ischemia, unspecified type Procedures CT BRAIN WO IVCON CT HEAD/BRAIN W/O CONTRAST MATERIAL Breann Schmitz, COOPERATIVE EDUCATION COORDINATOR.PROPERTY ADJUSTER [address] [place] [address] [place] [address] Referral ID Status Reason Start Date Expiration Date V isits Requested Visits Authorized [id number] Closed Auto-Generate d Referral 05/26/2023 06/24/2024 1 1 Specialty Diagnoses / Procedures Referred By Contac t Referred To Contact CT IMAGING Diagnoses Bilateral carotid artery stenosis Occlusion and stenosis of unspecified carotid artery Fibromuscular dysplasia (HCC) Procedures CTA NECK W IVCON CT ANGIOGRAPHY NECK W/CONTRAST/NONCONTRAST Hetal Gallardo, DO [address] [place] [address] Ct Imaging [facility] Referral ID Status Reason Start Date Expiration Date Visits Requested Visits Authorized [id number] Authorized Auto-Generat ed Referral 07/08/2023 08/06/2024 1 1 Specialty Diagnoses / Procedures Referred By Contac t Referred To Contact CT IMAGING Diagnoses Bilateral carotid artery stenosis Occlusion and stenosis of unspecified carotid artery Fibromuscular dysplasia (HCC) Procedures CTA HEAD W IVCON CT ANGIOGRAPHY HEAD W/CONTRAST/NONCONTRAST Hetal Gallardo, DO [address] [place] [id number] [place] [address] Referral ID Status Reason Start Date Expiration Date Visits Requested Visits Authorized [id number] Authorized Auto-Generat ed Referral 07/08/2023 08/06/2024 1 1 Additional Source Comments INFORMATION SOURCE (unrecogn ized section and content) DATE CREATED AUTHOR 10/08/2017 [facility] DATE CREATED AUTHOR AUTHOR'S ORGANIZ ATION 11/18/2024 [facility] DATE CREATED AUTHOR AUTHOR'S ORGANIZ ATION 01/07/2025 [facility] DATE CREATED AUTHOR AUTHOR'S ORGANIZ ATION 02/16/[address] [facility] Reason for Visit (unrecogniz ed section and content) Reason Comments Follow Up Injections Specialty Diagnoses / Procedures Referred By Contac t Referred To Contact Orthopedics / ORTHOPAEDIC SURGERY Diagnoses Unilateral primary osteoarthritis, left knee Procedures EUFLEXXA INJ PER DOSE Gel One or payor preferred Tamia Quezada PA-C [address] [place] [address] Tamia Quezada PA-C [address] [place] [address] Referral ID Status Reason Start Date Expiration Date V isits Requested Visits Authorized [id number] Authorized 06/30/2023 06/29/2024 99 99 Reason Comments PT Discharge Specialty Diagnoses / Procedures Referred By Contac t Referred To Contact [facility] Diagnoses DDD (degenerative disc disease), cervical Primary osteoarthritis of right hip Rotator cuff tear arthropathy, left Acute pain of right shoulder Cervicalgia Procedures CONSULT TO PHYSICAL THERAPY PHYSICAL THERAPY EVALUATION [employer] [facility] [employer] [facility] 45 MINS Jose G Harrington PA-C [address] [place] [address] [facility] [place] [address] [place] [address] Referral ID Status Reason Start Date Expiration Date V isits Requested Visits Authorized [id number] Closed Auto-Generate d Referral 04/14/2023 04/13/2024 10 10 Reason Comments Physical Therapy Referral ID Status Reason Start Date Expiration Date Visits Requested Visits Authorized [id number] Authorized Auto-Generat ed Referral 04/14/2023 04/13/2024 10 [...] Consult Specialty Diagnoses / Procedures [facility] To [facility] Cardiology Diagnoses Paroxysmal atrial fibrillation (HCC) Procedures CONSULT TO CARDIOLOGY OFFICE/[facility]PATIENT [facility] MDM 60-74 MINUTES Jose G Harrington PA-C [address] [place] [address] Referral ID Status Reason Start Date Expiration Date Visits Requested Visits Authorized [id number] Pending Review PCP Requested Referral 2 04/11/2023 1 1 Reason Comments PT Progress Note Reason Comments Dizziness Reason Comments Dizziness Reason Comments Radiology CT Specialty Diagnoses / Procedures [facility] To Contact CT IMAGING Diagnoses Transient cerebral ischemia, unspecified type Procedures CT BRAIN WO IVCON CT HEAD/BRAIN W/O CONTRAST MATERIAL Breann Schmitz, EAN.[employer] [address] [place] [address] [place] [id number] Referral ID Status Reason Start Date Expiration Date V isits Requested Visits Authorized [id number] Closed Auto-Generate d Referral 05/26/2023 06/24/2024 1 1 Reason Comments Results Reason Comments Recheck 1 week follow up Reason Comments Established Patient Pain Reason Comments Consult Carotid Stenosis Dr. Ross Referr al Specialty Diagnoses / Procedures Referred By Stacey mayo Referred To Contact Vascular Surgery Diagnoses Bilateral carotid artery stenosis Procedures CONSULT TO VASCULAR SURGERY OFFICE/OUTPATIENT [facility] 60 MINUTES Moses Ross MD [address] [place] [address] Referral ID Status Reason Start Date Expiration Date V isits Requested Visits Authorized [id number] Closed PCP Requested Referral 06/06/2023 06/05/2024 1 1 Reason Comments urinary symptoms Reason Comments UTI Reason Comments Established Patient Injections Reason Comments Ingrown Toenail L great toe redness, swelling, painful, was seeping blood this am x 1 weekHas appt with Felicitas baker [phone] October 21 Reason Comments Follow Up 6 [...] Reason Comments Fax [facility] in [place] Reason Comments Extremity Weakness Specialty Diagnoses / Procedures Referred By Stacey mayo Referred To Contact Diagnoses Basal ganglia hemorrhage Stroke (Hemorrhagic stroke) Zoya Sher MD [address] [place] [address] Phone: tel: fax: [facility] [address] [place] [address] Referral ID Status Reason Start Date Expiration Date Visits Re quested Visits Authorized [id number] 1 1 Source Comments (unrecognize d section and content) In the event this informatio n is protected by the Federal Confidentiality of Alcohol and Drug Abuse Patient Records regulations: The Federal rules restrict any use of the information to criminally investigate or prosecute any alcohol or drug abuse patient.[facility] the event this information is protected by the Federal Confidentiality of Alcohol and Drug Abuse Patient Records regulations: The Federal rules restrict any use of the information to criminally investigate or prosecute any alcohol or drug abuse patient.[facility] HospitalIn the event this information is protected by the Federal Confidentiality of Alcohol and Drug Abuse Patient Records regulations: The Federal rules restrict any use of the information to criminally investigate or prosecute any alcohol or drug abuse patient.[facility] HospitalIn the event this information is protected by the Federal Confidentiality of Alcohol and Drug Abuse Patient Records regulations: The Federal rules restrict any use of the information to criminally investigate or prosecute any alcohol or drug abuse patient.[facility] HospitalIn the event this information is protected by the Federal Confidentiality of Alcohol and Drug Abuse Patient Records regulations: The Federal rules restrict any use of the information to criminally investigate or prosecute any alcohol or drug abuse patient.[facility] HospitalIn the event this information is protected by the Federal Confidentiality of Alcohol and Drug Abuse Patient Records regulations: The Federal rules restrict any use of the information to criminally investigate or prosecute any alcohol or drug abuse patient.[facility] HospitalIn the event this information is protected by the Federal Confidentiality of Alcohol and Drug Abuse Patient Records regulations: The Federal rules restrict any use of the information to criminally investigate or prosecute any alcohol or drug abuse patient.[facility] HospitalIn the event this information is protected by the Federal Confidentiality of Alcohol and Drug Abuse Patient Records regulations: The Federal rules restrict any use of the information to criminally investigate or prosecute any alcohol or drug abuse patient.[facility] HospitalIn the event this information is protected by the Federal Confidentiality of Alcohol and Drug Abuse Patient Records regulations: The Federal rules restrict any use of the information to criminally investigate or prosecute any alcohol or drug abuse patient.[facility] HospitalIn the event this information is protected by the Federal Confidentiality of Alcohol and Drug Abuse Patient Records regulations: The Federal rules restrict any use of the information to criminally investigate or prosecute any alcohol or drug abuse patient.[facility] HospitalIn the event this information is protected by the Federal Confidentiality of Alcohol and Drug Abuse Patient Records regulations: The Federal rules restrict any use of the information to criminally investigate or prosecute any alcohol or drug abuse patient.[facility] HospitalIn the event this information is protected by the Federal Confidentiality of Alcohol and Drug Abuse Patient Records regulations: The Federal rules restrict any use of the information to criminally investigate or prosecute any alcohol or drug abuse patient.[facility] HospitalIn the event this information is protected by the Federal Confidentiality of Alcohol and Drug Abuse Patient Records regulations: The Federal rules restrict any use of the information to criminally investigate or prosecute any alcohol or drug abuse patient.[facility] HospitalIn the event this information is protected by the Federal Confidentiality of Alcohol and Drug Abuse Patient Records regulations: The Federal rules restrict any use of the information to criminally investigate or prosecute any alcohol or drug abuse patient.[facility] HospitalIn the event this information is protected by the Federal Confidentiality of Alcohol and Drug Abuse Patient Records regulations: The Federal rules restrict any use of the information to criminally investigate or prosecute any alcohol or drug abuse patient.[facility] HospitalIn the event this information is protected by the Federal Confidentiality of Alcohol and Drug Abuse Patient Records regulations: The Federal rules restrict any use of the information to criminally investigate or prosecute any alcohol or drug abuse patient.[facility] HospitalIn the event this information is protected by the Federal Confidentiality of Alcohol and Drug Abuse Patient Records regulations: The Federal rules restrict any use of the information to criminally investigate or prosecute any alcohol or drug abuse patient.[facility] HospitalIn the event this information is protected by the Federal Confidentiality of Alcohol and Drug Abuse Patient Records regulations: The Federal rules restrict any use of the information to criminally investigate or prosecute any alcohol or drug abuse patient.[facility] HospitalIn the event this information is protected by the Federal Confidentiality of Alcohol and Drug Abuse Patient Records regulations: The Federal rules restrict any use of the information to criminally investigate or prosecute any alcohol or drug abuse patient.[facility] HospitalIn the event this information is protected by the Federal Confidentiality of Alcohol and Drug Abuse Patient Records regulations: The Federal rules restrict any use of the information to criminally investigate or prosecute any alcohol or drug abuse patient.[facility] HospitalIn the event this information is protected by the Federal Confidentiality of Alcohol and Drug Abuse Patient Records regulations: The Federal rules restrict any use of the information to criminally investigate or prosecute any alcohol or drug abuse patient.[facility] HospitalIn the event this information is protected by the Federal Confidentiality of Alcohol and Drug Abuse Patient Records regulations: The Federal rules restrict any use of the information to criminally investigate or prosecute any alcohol or drug abuse patient.[facility] HospitalIn the event this information is protected by the Federal Confidentiality of Alcohol and Drug Abuse Patient Records regulations: The Federal rules restrict any use of the information to criminally investigate or prosecute any alcohol or drug abuse patient.[facility] HospitalIn the event this information is protected by the Federal Confidentiality of Alcohol and Drug Abuse Patient Records regulations: The Federal rules restrict any use of the information to criminally investigate or prosecute any alcohol or drug abuse patient.[facility] HospitalIn the event this information is protected by the Federal Confidentiality of Alcohol and Drug Abuse Patient Records regulations: The Federal rules restrict any use of the information to criminally investigate or prosecute any alcohol or drug abuse patient.[facility] HospitalIn the event this information is protected by the Federal Confidentiality of Alcohol and Drug Abuse Patient Records regulations: The Federal rules restrict any use of the information to criminally investigate or prosecute any alcohol or drug abuse patient.[facility] HospitalIn the event this information is protected by the Federal Confidentiality of Alcohol and Drug Abuse Patient Records regulations: The Federal rules restrict any use of the information to criminally investigate or prosecute any alcohol or drug abuse patient.[facility] HospitalIn the event this information is protected by the Federal Confidentiality of Alcohol and Drug Abuse Patient Records regulations: The Federal rules restrict any use of the information to criminally investigate or prosecute any alcohol or drug abuse patient.[facility] HospitalIn the event this information is protected by the Federal Confidentiality of Alcohol and Drug Abuse Patient Records regulations: The Federal rules restrict any use of the information to criminally investigate or prosecute any alcohol or drug abuse patient.[facility] HospitalIn the event this information is protected by the Federal Confidentiality of Alcohol and Drug Abuse Patient Records regulations: The Federal rules restrict any use of the information to criminally investigate or prosecute any alcohol or drug abuse patient.[facility] HospitalIn the event this information is protected by the Federal Confidentiality of Alcohol and Drug Abuse Patient Records regulations: The Federal rules restrict any use of the information to criminally investigate or prosecute any alcohol or drug abuse patient.[facility] HospitalIn the event this information is protected by the Federal Confidentiality of Alcohol and Drug Abuse Patient Records regulations: The Federal rules restrict any use of the information to criminally investigate or prosecute any alcohol or drug abuse patient.[facility] HospitalIn the event this information is protected by the Federal Confidentiality of Alcohol and Drug Abuse Patient Records regulations: The Federal rules restrict any use of the information to criminally investigate or prosecute any alcohol or drug abuse patient.[facility] HospitalIn the event this information is protected by the Federal Confidentiality of Alcohol and Drug Abuse Patient Records regulations: The Federal rules restrict any use of the information to criminally investigate or prosecute any alcohol or drug abuse patient.[facility] HospitalIn the event this information is protected by the Federal Confidentiality of Alcohol and Drug Abuse Patient Records regulations: The Federal rules restrict any use of the information to criminally investigate or prosecute any alcohol or drug abuse patient.[facility] HospitalIn the event this information is protected by the Federal Confidentiality of Alcohol and Drug Abuse Patient Records regulations: The Federal rules restrict any use of the information to criminally investigate or prosecute any alcohol or drug abuse patient.[facility] HospitalIn the event this information is protected by the Federal Confidentiality of Alcohol and Drug Abuse Patient Records regulations: The Federal rules restrict any use of the information to criminally investigate or prosecute any alcohol or drug abuse patient.[facility] HospitalIn the event this information is protected by the Federal Confidentiality of Alcohol and Drug Abuse Patient Records regulations: The Federal rules restrict any use of the information to criminally investigate or prosecute any alcohol or drug abuse patient.[facility] HospitalIn the event this information is protected by the Federal Confidentiality of Alcohol and Drug Abuse Patient Records regulations: The Federal rules restrict any use of the information to criminally investigate or prosecute any alcohol or drug abuse patient.[facility] HospitalIn the event this information is protected by the Federal Confidentiality of Alcohol and Drug Abuse Patient Records regulations: The Federal rules restrict any use of the information to criminally investigate or prosecute any alcohol or drug abuse patient.[facility] HospitalIn the event this information is protected by the Federal Confidentiality of Alcohol and Drug Abuse Patient Records regulations: The Federal rules restrict any use of the information to criminally investigate or prosecute any alcohol or drug abuse patient.[facility] HospitalIn the event this information is protected by the Federal Confidentiality of Alcohol and Drug Abuse Patient Records regulations: The Federal rules restrict any use of the information to criminally investigate or prosecute any alcohol or drug abuse patient.[facility] HospitalIn the event this information is protected by the Federal Confidentiality of Alcohol and Drug Abuse Patient Records regulations: The Federal rules restrict any use of the information to criminally investigate or prosecute any alcohol or drug abuse patient.[facility] HospitalIn the event this information is protected by the Federal Confidentiality of Alcohol and Drug Abuse Patient Records regulations: The Federal rules restrict any use of the information to criminally investigate or prosecute any alcohol or drug abuse patient.[facility] HospitalIn the event this information is protected by the Federal Confidentiality of Alcohol and Drug Abuse Patient Records regulations: The Federal rules restrict any use of the information to criminally investigate or prosecute any alcohol or drug abuse patient.[facility] HospitalIn the event this information is protected by the Federal Confidentiality of Alcohol and Drug Abuse Patient Records regulations: The Federal rules restrict any use of the information to criminally investigate or prosecute any alcohol or drug abuse patient.[facility] HospitalIn the event this information is protected by the Federal Confidentiality of Alcohol and Drug Abuse Patient Records regulations: The Federal rules restrict any use of the information to criminally investigate or prosecute any alcohol or drug abuse patient.[facility] HospitalIn the event this information is protected by the Federal Confidentiality of Alcohol and Drug Abuse Patient Records regulations: The Federal rules restrict any use of the information to criminally investigate or prosecute any alcohol or drug abuse patient.[facility] HospitalIn the event this information is protected by the Federal Confidentiality of Alcohol and Drug Abuse Patient Records regulations: The Federal rules restrict any use of the information to criminally investigate or prosecute any alcohol or drug abuse patient.[facility] HospitalIn the event this information is protected by the Federal Confidentiality of Alcohol and Drug Abuse Patient Records regulations: The Federal rules restrict any use of the information to criminally investigate or prosecute any alcohol or drug abuse patient.[facility] HospitalIn the event this information is protected by the Federal Confidentiality of Alcohol and Drug Abuse Patient Records regulations: The Federal rules restrict any use of the information to criminally investigate or prosecute any alcohol or drug abuse patient.[facility] HospitalIn the event this information is protected by the Federal Confidentiality of Alcohol and Drug Abuse Patient Records regulations: The Federal rules restrict any use of the information to criminally investigate or prosecute any alcohol or drug abuse patient.[facility] HospitalIn the event this information is protected by the Federal Confidentiality of Alcohol and Drug Abuse Patient Records regulations: The Federal rules restrict any use of the information to criminally investigate or prosecute any alcohol or drug abuse patient.[facility] HospitalIn the event this information is protected by the Federal Confidentiality of Alcohol and Drug Abuse Patient Records regulations: The Federal rules restrict any use of the information to criminally investigate or prosecute any alcohol or drug abuse patient.[facility] HospitalIn the event this information is protected by the Federal Confidentiality of Alcohol and Drug Abuse Patient Records regulations: The Federal rules restrict any use of the information to criminally investigate or prosecute any alcohol or drug abuse patient.[facility] HospitalIn the event this information is protected by the Federal Confidentiality of Alcohol and Drug Abuse Patient Records regulations: The Federal rules restrict any use of the information to criminally investigate or prosecute any alcohol or drug abuse patient.[facility] HospitalIn the event this information is protected by the Federal Confidentiality of Alcohol and Drug Abuse Patient Records regulations: The Federal rules restrict any use of the information to criminally investigate or prosecute any alcohol or drug abuse patient.[facility] HospitalIn the event this information is protected by the Federal Confidentiality of Alcohol and Drug Abuse Patient Records regulations: The Federal rules restrict any use of the information to criminally investigate or prosecute any alcohol or drug abuse patient.[facility] HospitalIn the event this information is protected by the Federal Confidentiality of Alcohol and Drug Abuse Patient Records regulations: The Federal rules restrict any use of the information to criminally investigate or prosecute any alcohol or drug abuse patient.[facility] HospitalIn the event this information is protected by the Federal Confidentiality of Alcohol and Drug Abuse Patient Records regulations: The Federal rules restrict any use of the information to criminally investigate or prosecute any alcohol or drug abuse patient.[facility] HospitalIn the event this information is protected by the Federal Confidentiality of Alcohol and Drug Abuse Patient Records regulations: The Federal rules restrict any use of the information to criminally investigate or prosecute any alcohol or drug abuse patient.[facility] HospitalIn the event this information is protected by the Federal Confidentiality of Alcohol and Drug Abuse Patient Records regulations: The Federal rules restrict any use of the information to criminally investigate or prosecute any alcohol or drug abuse patient.[facility] HospitalIn the event this information is protected by the Federal Confidentiality of Alcohol and Drug Abuse Patient Records regulations: The Federal rules restrict any use of the information to criminally investigate or prosecute any alcohol or drug abuse patient.[facility] HospitalIn the event this information is protected by the Federal Confidentiality of Alcohol and Drug Abuse Patient Records regulations: The Federal rules restrict any use of the information to criminally investigate or prosecute any alcohol or drug abuse patient.[facility] HospitalIn the event this information is protected by the Federal Confidentiality of Alcohol and Drug Abuse Patient Records regulations: The Federal rules restrict any use of the information to criminally investigate or prosecute any alcohol or drug abuse patient.[facility] HospitalIn the event this information is protected by the Federal Confidentiality of Alcohol and Drug Abuse Patient Records regulations: The Federal rules restrict any use of the information to criminally investigate or prosecute any alcohol or drug abuse patient.[facility] HospitalIn the event this information is protected by the Federal Confidentiality of Alcohol and Drug Abuse Patient Records regulations: The Federal rules restrict any use of the information to criminally investigate or prosecute any alcohol or drug abuse patient.[facility] HospitalIn the event this information is protected by the Federal Confidentiality of Alcohol and Drug Abuse Patient Records regulations: The Federal rules restrict any use of the information to criminally investigate or prosecute any alcohol or drug abuse patient.[facility] HospitalIn the event this information is protected by the Federal Confidentiality of Alcohol and Drug Abuse Patient Records regulations: The Federal rules restrict any use of the information to criminally investigate or prosecute any alcohol or drug abuse patient.[facility] HospitalIn the event this information is protected by the Federal Confidentiality of Alcohol and Drug Abuse Patient Records regulations: The Federal rules restrict any use of the information to criminally investigate or prosecute any alcohol or drug abuse patient.[facility] HospitalIn the event this information is protected by the Federal Confidentiality of Alcohol and Drug Abuse Patient Records regulations: The Federal rules restrict any use of the information to criminally investigate or prosecute any alcohol or drug abuse patient.[facility] HospitalIn the event this information is protected by the Federal Confidentiality of Alcohol and Drug Abuse Patient Records regulations: The Federal rules restrict any use of the information to criminally investigate or prosecute any alcohol or drug abuse patient.[facility] HospitalIn the event this information is protected by the Federal Confidentiality of Alcohol and Drug Abuse Patient Records regulations: The Federal rules restrict any use of the information to criminally investigate or prosecute any alcohol or drug abuse patient.[facility] HospitalIn the event this information is protected by the Federal Confidentiality of Alcohol and Drug Abuse Patient Records regulations: The Federal rules restrict any use of the information to criminally investigate or prosecute any alcohol or drug abuse patient.[facility] HospitalIn the event this information is protected by the Federal Confidentiality of Alcohol and Drug Abuse Patient Records regulations: The Federal rules restrict any use of the information to criminally investigate or prosecute any alcohol or drug abuse patient.[facility] HospitalIn the event this information is protected by the Federal Confidentiality of Alcohol and Drug Abuse Patient Records regulations: The Federal rules restrict any use of the information to criminally investigate or prosecute any alcohol or drug abuse patient.[facility] HospitalIn the event this information is protected by the Federal Confidentiality of Alcohol and Drug Abuse Patient Records regulations: The Federal rules restrict any use of the information to criminally investigate or prosecute any alcohol or drug abuse patient.[facility] HospitalIn the event this information is protected by the Federal Confidentiality of Alcohol and Drug Abuse Patient Records regulations: The Federal rules restrict any use of the information to criminally investigate or prosecute any alcohol or drug abuse patient.[facility] HospitalIn the event this information is protected by the Federal Confidentiality of Alcohol and Drug Abuse Patient Records regulations: The Federal rules restrict any use of the information to criminally investigate or prosecute any alcohol or drug abuse patient.[facility] HospitalIn the event this information is protected by the Federal Confidentiality of Alcohol and Drug Abuse Patient Records regulations: The Federal rules restrict any use of the information to criminally investigate or prosecute any alcohol or drug abuse patient.[facility] HospitalIn the event this information is protected by the Federal Confidentiality of Alcohol and Drug Abuse Patient Records regulations: The Federal rules restrict any use of the information to criminally investigate or prosecute any alcohol or drug abuse patient.[facility] HospitalIn the event this information is protected by the Federal Confidentiality of Alcohol and Drug Abuse Patient Records regulations: The Federal rules restrict any use of the information to criminally investigate or prosecute any alcohol or drug abuse patient.[facility] HospitalIn the event this information is protected by the Federal Confidentiality of Alcohol and Drug Abuse Patient Records regulations: The Federal rules restrict any use of the information to criminally investigate or prosecute any alcohol or drug abuse patient.[facility] HospitalIn the event this information is protected by the Federal Confidentiality of Alcohol and Drug Abuse Patient Records regulations: The Federal rules restrict any use of the information to criminally investigate or prosecute any alcohol or drug abuse patient.[facility] HospitalIn the event this information is protected by the Federal Confidentiality of Alcohol and Drug Abuse Patient Records regulations: The Federal rules restrict any use of the information to criminally investigate or prosecute any alcohol or drug abuse patient.[facility] HospitalIn the event this information is protected by the Federal Confidentiality of Alcohol and Drug Abuse Patient Records regulations: The Federal rules restrict any use of the information to criminally investigate or prosecute any alcohol or drug abuse patient.[facility] HospitalIn the event this information is protected by the Federal Confidentiality of Alcohol and Drug Abuse Patient Records regulations: The Federal rules restrict any use of the information to criminally investigate or prosecute any alcohol or drug abuse patient.[facility] HospitalIn the event this information is protected by the Federal Confidentiality of Alcohol and Drug Abuse Patient Records regulations: The Federal rules restrict any use of the information to criminally investigate or prosecute any alcohol or drug abuse patient.[facility] HospitalIn the event this information is protected by the Federal Confidentiality of Alcohol and Drug Abuse Patient Records regulations: The Federal rules restrict any use of the information to criminally investigate or prosecute any alcohol or drug abuse patient.[facility] HospitalIn the event this information is protected by the Federal Confidentiality of Alcohol and Drug Abuse Patient Records regulations: The Federal rules restrict any use of the information to criminally investigate or prosecute any alcohol or drug abuse patient.[facility] Care Teams (unrecognized sec tion and content) [employer] League Baseball Player Relationship Specialty Start Date End Date Jose G Harrington PA-C [address] [place] [address] PCP - General Family Practice 01/27/17 Lamonte Toney MD Home Care Physician Orthopedics 10/17/14 Francis De La O MD Referring Internal Medicine 10/17/14 [employer] League Baseball Player Relationship Specialty Start Date End Date Jose G Harrington PA-C [address] [place] [address] PCP - General Family Practice 01/27/17 Lamonte Toney MD Home Care Physician Orthopedics 10/17/14 Francis De La O MD Referring Internal Medicine 10/17/14 [employer] League Baseball Player Relationship Specialty Start Date End Date Jose G Harrington PA-C [address] [place] [address] PCP - General Family Practice 01/27/17 Lamonte Toney MD Home Care Physician Orthopedics 10/17/14 Francis De La O MD Referring Internal Medicine 10/17/14 [employer] League Baseball Player Relationship Specialty Start Date End Date Jose G Harrington PA-C [address] [place] [address] PCP - General Family Practice 01/27/17 Lamonte Toney MD Home Care Physician Orthopedics 10/17/14 Francis De La O MD Referring Internal Medicine 10/17/14 [employer] League Baseball Player Relationship Specialty Start Date End Date Jose G Harrington PA-C [address] [place] [address] PCP - General Family Medicine 01/27/17 Lamonte Toney MD Home Care Provider Orthopedics 10/17/14 Francis De La O MD Referring Internal Medicine 10/17/14 [employer] League Baseball Player Relationship Specialty Start Date End Date Jose G Harrington PA-C [address] [place] [address] PCP - General Family Medicine 01/27/17 Lamonte Toney MD Home Care Provider Orthopedics 10/17/14 Francis De La O MD Referring Internal Medicine 10/17/14 [employer] League Baseball Player Relationship Specialty Start Date End Date Jose G Harrington PA-C [address] [place] [address] PCP - General Family Medicine 01/27/17 Lamonte Toney MD Home Care Provider Orthopedics 10/17/14 Francis De La O MD Referring Internal Medicine 10/17/14 Major League Baseball Player Relationship Specialty Start Date End Date Jose G Harrington PA-C [address] [place] [address] PCP - General Family Medicine 01/27/17 Lamonte Toney MD Home Care Provider Orthopedics 10/17/14 Francis De La O MD Referring Internal Medicine 10/17/14 [employer] League Baseball Player Relationship Specialty Start Date End Date Jose G Harrington PA-C [address] [place] [address] PCP - General Family Medicine 01/27/17 Lamonte Toney MD Home Care Provider Orthopedics 10/17/14 Francis De La O MD Referring Internal Medicine 10/17/14 Major League Baseball Player Relationship Specialty Start Date End Date Jose G Harrington PA-C [address] [place], [place] [id number] PCP - General Family Medicine 01/27/17 Lamonte Toney MD Home Care Provider Orthopedics 10/17/14 Francis De La O MD Referring Internal Medicine 10/17/14 Major League Baseball Player Relationship Specialty Start Date End Date Jose G Harrington PA-C [address] [place] [address] PCP - General Family Medicine 01/27/17 Lamonte Toney MD Home Care Provider Orthopedics 10/17/14 Francis De La O MD Referring Internal Medicine 10/17/14 [employer] League Baseball Player Relationship Specialty Start Date End Date Jose G Harrington PA-C [address] [place] [address] PCP - General Family Medicine 01/27/17 Lamonte Toney MD Home Care Provider Orthopedics 10/17/14 Francis De La O MD Referring Internal Medicine 10/17/14 [employer] League Baseball Player Relationship Specialty Start Date End Date Jose G Harrington PA-C [address] [place] [address] PCP - General Family Medicine 01/27/17 Lamonte Toney MD Home Care Provider Orthopedics 10/17/14 Francis De La O MD Referring Internal Medicine 10/17/14 [employer] League Baseball Player Relationship Specialty Start Date End Date Jose G Harrington PA-C [address] [place] [address] PCP - General Family Medicine 01/27/17 Lamonte Toney MD Home Care Provider Orthopedics 10/17/14 Francis De La O MD Referring Internal Medicine 10/17/14 [employer] League Baseball Player Relationship Specialty Start Date End Date Jose G Harrington PA-C [address] [place] [address] PCP - General Family Medicine 01/27/17 Lamonte Toney MD Home Care Provider Orthopedics 10/17/14 Francis De La O MD Referring Internal Medicine 10/17/14 [employer] League Baseball Player Relationship Specialty Start Date End Date Jose G Harrington PA-C [address] [place] [address] PCP - General Family Medicine 01/27/17 Lamonte Toney MD Home Care Provider Orthopedics 10/17/14 Francis De La O MD Referring Internal Medicine 10/17/14 [employer] League Baseball Player Relationship Specialty Start Date End Date Jose G Harrington PA-C [address] [place] [address] PCP - General Family Medicine 01/27/17 Lamonte Toney MD Home Care Provider Orthopedics 10/17/14 Francis De La O MD Referring Internal Medicine 10/17/14 [employer] League Baseball Player Relationship Specialty Start Date End Date Jose G Harrington PA-C [address] [place] [address] PCP - General Family Medicine 01/27/17 Lamonte Toney MD Home Care Provider Orthopedics 10/17/14 Francis De La O MD Referring Internal Medicine 10/17/14 Major League Baseball Player Relationship Specialty Start Date End Date Jose G Harrington PA-C [address] [place] [address] PCP - General Family Medicine 01/27/17 Lamonte Toney MD Home Care Provider Orthopedics 10/17/14 Francis De La O MD Referring Internal Medicine 10/17/14 [employer] League Baseball Player Relationship Specialty Start Date End Date Jose G Harrington PA-C [address] [place] [address] PCP - General Family Medicine 01/27/17 Lamonte Toney MD Home Care Provider Orthopedics 10/17/14 Francis De La O MD Referring Internal Medicine 10/17/14 [employer] League Baseball Player Relationship Specialty Start Date End Date Jose G Harrington PA-C [address] [place] [address] PCP - General Family Medicine 01/27/17 Lamonte Toney MD Home Care Provider Orthopedics 10/17/14 Francis De La O MD Referring Internal Medicine 10/17/14 [employer] League Baseball Player Relationship Specialty Start Date End Date Jsoe G Harrington PA-C [address] [place] [address] PCP - General Family Medicine 01/27/17 Lamonte Toney MD Home Care Provider Orthopedics 10/17/14 Francis De La O MD Referring Internal Medicine 10/17/14 Major League Baseball Player Relationship Specialty Start Date End Date Jose G Harrington PA-C [address] [place] [address] PCP - General Family Medicine 01/27/17 Lamonte Toney MD Home Care Provider Orthopedics 10/17/14 Francis De La O MD Referring Internal Medicine 10/17/14 [employer] League Baseball Player Relationship Specialty Start Date End Date Jose G Harrington PA-C [address] [place] [address] PCP - General Family Medicine 01/27/17 Lamonte Toney MD Home Care Provider Orthopedics 10/17/14 Francis De La O MD Referring Internal Medicine 10/17/14 [employer] League Baseball Player Relationship Specialty Start Date End Date Jose G Harrington PA-C [address] [place] [address] PCP - General Family Medicine 01/27/17 Lamonte Toney MD Home Care Provider Orthopedics 10/17/14 Francis De La O MD Referring Internal Medicine 10/17/14 [employer] League Baseball Player Relationship Specialty Start Date End Date Jose G Harrington PA-C [address] [place] [address] PCP - General Family Medicine 01/27/17 Lamonte Toney MD Home Care Provider Orthopedics 10/17/14 Francis De La O MD Referring Internal Medicine 10/17/14 [employer] League Baseball Player Relationship Specialty Start Date End Date Jose G Harrington PA-C [address] [place] [address] PCP - General Family Medicine 01/27/17 Lamonte Toney MD Home Care Provider Orthopedics 10/17/14 Francis De La O MD Referring Internal Medicine 10/17/14 [employer] League Baseball Player Relationship Specialty Start Date End Date Tasha Deutsch COOPERATIVE EDUCATION COORDINATOR.PROPERTY ADJUSTER [address] [place] [address] PCP - General Family Medicine 04/05/24 Lamonte Toney MD Home Care Provider Orthopedics 10/17/14 Francis De La O MD Referring Internal Medicine 10/17/14 Breann Schmitz APRN.PROPERTY ADJUSTER [address] [place] [address] Churn Operator Family Medicine 03/19/24 Tasha Deutsch COOPERATIVE EDUCATION COORDINATOR.PROPERTY ADJUSTER [address] [place] [address] Churn Operator Family [facility] 03/19/24 Major League Baseball Player Relationship Specialty Start Date End Date Tasha Deutsch COOPERATIVE EDUCATION COORDINATOR.PROPERTY ADJUSTER [address] [place] [address] PCP - General Family Medicine 04/05/24 Lamonte Toney MD Home Care Provider Orthopedics 10/17/14 Francis De La O MD Referring Internal Medicine 10/17/14 Breann Schmitz, COOPERATIVE EDUCATION COORDINATOR.PROPERTY ADJUSTER [address] [place] [address] Churn Operator [facility] 03/19/24 Tasha Deutsch COOPERATIVE EDUCATION COORDINATOR.PROPERTY ADJUSTER [address] [place] [address] [facility] Major League Baseball Player Relationship Specialty Start Date End Date Tasha Deutsch, COOPERATIVE EDUCATION COORDINATOR.PROPERTY ADJUSTER [address] [place] [address] PCP - General Family Medicine 04/05/24 Lamonte Toney MD Home Care Provider Orthopedics 10/17/14 Francis De La O MD Referring Internal Medicine 10/17/14 Breann Schmitz, COOPERATIVE EDUCATION COORDINATOR.PROPERTY ADJUSTER [address] [place] [address] Churn Operator Family Medicine 03/19/24 Tasha Deutsch, COOPERATIVE EDUCATION COORDINATOR.PROPERTY ADJUSTER [address] [place] [address] Churn Operator Family Medicine 03/19/24 Major League Baseball Player Relationship Specialty Start Date End Date Tasha Deutsch, COOPERATIVE EDUCATION COORDINATOR.PROPERTY ADJUSTER [address] [place] [address] PCP - General Family Medicine 04/05/24 Lamonte Toney MD Home Care Provider Orthopedics 10/17/14 Francis De La O MD Referring Internal Medicine 10/17/14 Breann Schmitz, COOPERATIVE EDUCATION COORDINATOR.PROPERTY ADJUSTER [address] [place] [address] Churn Operator Family [facility] 03/19/24 Tasha Deutsch, COOPERATIVE EDUCATION COORDINATOR.PROPERTY ADJUSTER [address] [facility] [place] [address] Churn Operator Family [facility] 03/19/24 Major League Baseball Player Relationship Specialty Start Date End Date Tasha Deutsch, COOPERATIVE EDUCATION COORDINATOR.PROPERTY ADJUSTER [address] [place] [address] PCP - General Family Medicine 04/05/24 Lamonte Toney MD Home Care Provider Orthopedics 10/17/14 Francis De La O MD Referring Internal Medicine 10/17/14 Breann Schmitz, COOPERATIVE EDUCATION COORDINATOR.PROPERTY ADJUSTER [address] [place], [place] [address] [facility]ly [facility] 03/19/24 Tasha Deutsch COOPERATIVE EDUCATION COORDINATOR.PROPERTY ADJUSTER [address] [facility] [place] [place] [address] Formerly [facility], [facility] 03/19/24 Team Status: Active Member Role Status Dates Tasha Deutsch , INSIDE SALES ADVISOR Primary Care Provider Active Team Status: Inactive Member Role Status Dates Dr. Ricki Reyes MD Emergency Provider Active S tart: August 16, 2024 End: August 16, 2024 Tasha Deutsch , INSIDE SALES ADVISOR Primary Care Provider Active Start: August 16, 2024 End: August 16, 2024 Team Status: Active Member Role Status Dates Tasha Deutsch , INSIDE SALES ADVISOR Primary Care Provider Active Start: August 18, [...] End: August 16, 2024 Tasha Suppsamantha , INSIDE SALES ADVISOR Primary Care Provider Active Start: August 16, 2024 End: August 16, 2024 Team Status: Inactive Member Role Status Dates Tasha Deutsch , INSIDE SALES ADVISOR Primary Care Provider Active Start: August 18, [...] Member Role Status Dates Tasha Deutsch , INSIDE SALES ADVISOR Primary Care Provider Active Start: August 19, [...] Member Role Status Dates Tasha Deutsch , INSIDE SALES ADVISOR Primary Care Provider Active Start: August 20, [...] Member Role Status Dates Tasha Deutsch , INSIDE SALES ADVISOR Primary Care Provider Active Start: August 21, 2024 Dr. Fawad Cordon , Emergency Provider Active Start: August 21, 2024 Dr. Mara Mar DO Admit Provider Active Start : August 21, 2024 Dr. Mara Mar DO Attending Provider Active S tart: August 21, 2024 Dr. Mara Mar DO Other Provider Active Start : August 21, 2024 Harley Nunez MD Other Provider Active Start: [place] 2024 Dr. Liu Woody MD Other Provider Active Start: August 21, 2024 Isa Cruz MD Other Provider Active Start : August 21, 2024 Dr. Maki Lpóez DO Other Provider Active St art: August [...] Harley Nunez MD Other Provider Active Start: [place] 2024 Dr. Liu Woody MD Other Provider [...] Other Provider Active Start: August 22, 2024 Major League Baseball Player Relationship Specialty Start Date End Date Tasha Deutsch COOPERATIVE EDUCATION COORDINATOR.PROPERTY ADJUSTER [address] [place] [address] PCP - General Family Medicine 04/05/24 Lamonte Toney MD Home Care Provider Orthopedics 10/17/14 Francis De La O MD Referring Internal Medicine 10/17/14 [employer] League Baseball Player Relationship Specialty Start Date End Date Tasha Deutsch COOPERATIVE EDUCATION COORDINATOR.PROPERTY ADJUSTER [address] [place] [address] PCP - General Family Medicine 04/05/24 Lamonte Toney MD Home Care Provider Orthopedics 10/17/14 Francis De La O MD Referring Internal Medicine 10/17/14 [employer] League Baseball Player Relationship Specialty Start Date End Date Tasha Deutsch COOPERATIVE EDUCATION COORDINATOR.PROPERTY ADJUSTER [address] [place] [address] PCP - General Family Medicine 04/05/24 Lamonte Toney MD Home Care Provider Orthopedics 10/17/14 Farncis De La O MD Referring Internal Medicine 10/17/14 [employer] League Baseball Player Relationship Specialty Start Date End Date Tasha Deutsch, COOPERATIVE EDUCATION COORDINATOR.PROPERTY ADJUSTER [address] [facility], [place] [address] PCP - General Family Medicine 04/05/24 Behzad Dorado [address] [place] [id number] Referring Internal Medicine 09/17/24 Tasha Deutsch, COOPERATIVE EDUCATION COORDINATOR.PROPERTY ADJUSTER [address] [facility], [place] [address] Home Care Provider Family Medicine 09/17/24 Major League Baseball Player Relationship Specialty Start Date End Date Tasha Deutsch, COOPERATIVE EDUCATION COORDINATOR.PROPERTY ADJUSTER [address] [facility], [place] [address] PCP - General Family Medicine 04/05/24 Behzad Dorado [address] [place] [address] Referring Internal Medicine 09/17/24 Tasha Deutsch, COOPERATIVE EDUCATION COORDINATOR.PROPERTY ADJUSTER [address] [place] [address] Home Care Provider Family Medicine 09/17/24 Team [...] Active Member Role Status Dates Tasha Deutsch INSIDE SALES ADVISOR Primary Care Provider Active Start: August 23, 2024 Dr. Behzad Dorado DO Admit Provider Active Start: August 23, 2024 Dr. Behzad Dorado , DO Attending Provider Act basilio Start: August 23, 2024 Dr. Behzad Dorado , DO Other Provider Active Start: August 23, 2024 Team Status: Active Member Role Status Dates Tasha Deutsch , INSIDE SALES ADVISOR Primary Care Provider Active Start: August 26, 2024 Dr. Behzad Dorado , DO Admit Provider Active Start: August 26, 2024 Dr. Behzad Dorado , DO Attending Provider Act basilio Start: August 26, 2024 Dr. Behzad Dorado , DO Other Provider Active Start: August 26, 2024 Team Status: Active Member Role Status Dates Tasha Deutsch , INSIDE SALES ADVISOR Primary Care Provider Active Start: August 30, 2024 Dr. Behzad Dorado , DO Admit Provider Active Start: August 30, 2024 Dr. Behzad Dorado , DO Attending Provider Act basilio Start: August 30, 2024 Dr. Behzad Dorado , DO Other Provider Active Start: August 30, 2024 Team Status: Active Member Role Status Dates Tasha Deutsch , INSIDE SALES ADVISOR Primary Care Provider Active Start: August 31, 2024 Dr. Behzad Dorado , DO Admit Provider Active Start: August 31, 2024 Dr. Behzad Dorado , DO Attending Provider Act basilio Start: August 31, 2024 Dr. Behzad Dorado , DO Other Provider Active Start: August 31, 2024 Team Status: Active Member Role Status Dates Tasha Deutsch , INSIDE SALES ADVISOR Primary Care Provider Active Start: September 02, 2024 Dr. Behzad Dorado , DO Admit Provider Active Start: September 02, 2024 Dr. Behzad Dorado , DO Attending Provider Act basilio Start: September 02, 2024 Dr. Behzad Dorado , DO Other Provider Active Start: September 02, 2024 Team Status: Active Member Role Status Dates Tasha Deutsch , INSIDE SALES ADVISOR Primary Care Provider Active Start: September 05, 2024 Dr. Behzad Dorado , DO Admit Provider Active Start: September 05, 2024 Dr. Behzad Dorado , DO Attending Provider Act basilio Start: September 05, 2024 Dr. Behzad Dorado , DO Other Provider Active Start: September 05, 2024 Team Status: Active Member Role Status Dates Tasha Deutsch , INSIDE SALES ADVISOR Primary Care Provider Active Start: September 07, 2024 Dr. Behzad Dorado , DO Admit Provider Active Start: September 07, 2024 Dr. Behzad Dorado , DO Attending Provider Act basilio Start: September 07, 2024 Dr. Behzad Dorado , DO Other Provider Active Start: September 07, 2024 Team Status: Active Member Role Status Dates Tasha Deutsch , INSIDE SALES ADVISOR Primary Care Provider Active Start: September 09, 2024 Dr. Behzad Dorado , DO Admit Provider Active Start: September 09, 2024 Dr. Behzad Dorado , DO Attending Provider Act basilio Start: September 09, 2024 Dr. Behzad Dorado , DO Other Provider Active Start: September 09, 2024 Team Status: Active Member Role Status Dates Tasha Deutsch , INSIDE SALES ADVISOR Primary Care Provider Active Start: September 13, 2024 Dr. Behzad Dorado , Admit Provider Active Start: September 13, 2024 Dr. Behzad Dorado , DO Attending Provider Act basilio Start: September 13, 2024 Dr. Behzad Dorado , Other Provider Active Start: September 13, 2024 Team Status: Active Member Role Status Dates Tasha Deutsch , INSIDE SALES ADVISOR Primary Care Provider Active Start: September 14, 2024 Dr. Behzad Dorado , Admit Provider Active Start: September 14, 2024 Dr. Behzad Dorado , DO Attending Provider Act basilio Start: September 14, 2024 Dr. Behzad Dorado , Other Provider Active Start: September 14, 2024 Team Status: Active Member Role Status Dates Tasha Deutsch , INSIDE SALES ADVISOR Primary Care Provider Active Start: September 16, 2024 Dr. Behzad Dorado , DO Admit Provider Active Start: September 16, 2024 Dr. Behzad Dorado , DO Attending Provider Act basilio Start: September 16, 2024 Dr. Behzad Dorado , DO Other Provider Active Start: September 16, 2024 Major League Baseball Player Relationship Specialty Start Date End Date Tasha Deutsch APRN.PROPERTY ADJUSTER [address] [place] [address] PCP - General Family Medicine 04/05/24 Behzad Dorado [address] [place] [address] Referring Internal Medicine 09/17/24 Tasha Deutsch APRN.PROPERTY ADJUSTER [address] [place] [address] Home Care Provider Family Medicine 09/17/24 Mack Brito, JESIKA [address] [place], [place] [id number] Manufacturing Process Engineer Post Acute Care 09/20/24 Major League Baseball Player Relationship Specialty Start Date End Date Tasha Deutsch COOPERATIVE EDUCATION COORDINATOR.PROPERTY ADJUSTER [address] [place] [address] PCP - General Family Medicine 04/05/24 Behzad Dorado [address] [place] [address] Referring Internal Medicine 09/17/24 Tasha Deutsch APRN.PROPERTY ADJUSTER [address] [place] [address] Home Care Provider Family Medicine 09/17/24 Mack Brito RN [address] [place], [place] [id number] Manufacturing Process Engineer Post Acute Care 09/20/24 Major League Baseball Player Relationship Specialty Start Date End Date Tasha Deutsch COOPERATIVE EDUCATION COORDINATOR.PROPERTY ADJUSTER [address] [place] [address] PCP - General Family Medicine 04/05/24 Behzad Dorado [address] [facility] [place] [address] Referring Internal Medicine 09/17/24 Tasha Deutsch COOPERATIVE EDUCATION COORDINATOR.PROPERTY ADJUSTER [address] [place] [address] Home Care Provider Family Medicine 09/17/24 Mack Brito, JSEIKA [address] [place], [place] [id number] Manufacturing Process Engineer Post Acute Care 09/20/24 [employer] League Baseball Player Relationship Specialty Start Date End Date Tasha Deutsch COOPERATIVE EDUCATION COORDINATOR.PROPERTY ADJUSTER [address] [place] [address] PCP - General Family Medicine 04/05/24 Behzad Dorado [address] [place] [phone] Referring Internal Medicine 09/17/24 Tasha Deutsch COOPERATIVE EDUCATION COORDINATOR.PROPERTY ADJUSTER [address] [place] [address] Home Care Provider Family Medicine 09/17/24 Mack Brito RN [address] [place], [place] [id number] Manufacturing Process Engineer Post Acute Care 09/20/24 [employer] League Baseball Player Relationship Specialty Start Date End Date Tasha Deutsch COOPERATIVE EDUCATION COORDINATOR.PROPERTY ADJUSTER [address] [place] [address] PCP - General Family Medicine 04/05/24 Behzad Dorado [address] [place] [id number] Referring Internal Medicine 09/17/24 Tasha Deutsch COOPERATIVE EDUCATION COORDINATOR.PROPERTY ADJUSTER [address] [place] [address] Home Care Provider Family Medicine 09/17/24 Mack Brito, JESIKA [address] [place], [place] [id number] Manufacturing Process Engineer Post Acute Care 09/20/24 [employer] League Baseball Player Relationship Specialty Start Date End Date Tasha Deutsch COOPERATIVE EDUCATION COORDINATOR.PROPERTY ADJUSTER [address] [place] [address] PCP - General Family Medicine 04/05/24 Behzad Dorado [address] [place] [address] Referring Internal Medicine 09/17/24 Tasha Deutsch COOPERATIVE EDUCATION COORDINATOR.PROPERTY ADJUSTER [address] [place] [address] Home Care Provider Family Medicine 09/17/24 Mack Brito, JESIKA [address] [place], [place] [id number] Manufacturing Process Engineer Post Acute Care 09/20/24 [employer] League Baseball Player Relationship Specialty Start Date End Date Tasha Deutsch COOPERATIVE EDUCATION COORDINATOR.PROPERTY ADJUSTER [address] [place] [address] PCP - General Family Medicine 04/05/24 Behzad Dorado [address] [place] [phone] Referring Internal Medicine 09/17/24 Tasha Deutsch COOPERATIVE EDUCATION COORDINATOR.PROPERTY ADJUSTER [address] [place] [address] Home Care Provider Family Medicine 09/17/24 Mack Brito, JESIKA [address] [place], [place] [id number] Manufacturing Process Engineer Post Acute Care 09/20/24 [employer] League Baseball Player Relationship Specialty Start Date End Date Tasha Deutsch COOPERATIVE EDUCATION COORDINATOR.PROPERTY ADJUSTER [address] [place] [address] PCP - General Family Medicine 04/05/24 Behzad Dorado [address] [place] [address] Referring Internal Medicine 09/17/24 Tasha Deutsch, COOPERATIVE EDUCATION COORDINATOR.PROPERTY ADJUSTER [address] [place] [address] Home Care Provider Family Medicine 09/17/24 Mack Brito RN [address] [place], [place] [id number] Manufacturing Process Engineer Post Acute Care 09/20/24 [employer] League Baseball Player Relationship Specialty Start Date End Date Tasha Deutsch COOPERATIVE EDUCATION COORDINATOR.PROPERTY ADJUSTER [address] [place] [address] PCP - General Family Medicine 04/05/24 Behzad Dorado [address] [place] [address] Referring Internal Medicine 09/17/24 Tasha Deutsch, COOPERATIVE EDUCATION COORDINATOR.PROPERTY ADJUSTER [address] [place] [address] Home Care Provider Family Medicine 09/17/24 Mack Brito RN [address] [place] [address] Manufacturing Process Engineer Post Acute Care 09/20/24 [employer] League Baseball Player Relationship Specialty Start Date End Date Tasha Deutsch, COOPERATIVE EDUCATION COORDINATOR.PROPERTY ADJUSTER [address] [place] [address] PCP - General Family Medicine 04/05/24 Behzad Dorado [address] [place] [address] Referring Internal Medicine 09/17/24 Tasha Deutsch, COOPERATIVE EDUCATION COORDINATOR.PROPERTY ADJUSTER [address] [place] [address] Home Care Provider Family Medicine 09/17/24 Mack Brito, JESIKA [address] [place] [address] Manufacturing Process Engineer Post Acute Care 09/20/24 [employer] League Baseball Player Relationship Specialty Start Date End Date Tasha Deutsch COOPERATIVE EDUCATION COORDINATOR.PROPERTY ADJUSTER [address] [place] [address] PCP - General Family Medicine 04/05/24 Behzad Dorado [address] [place] [address] Referring Internal Medicine 09/17/24 Tasha Deutsch COOPERATIVE EDUCATION COORDINATOR.PROPERTY ADJUSTER [address] [place] [address] Home Care Provider Family Medicine 09/17/24 Mack Brito RN [address] [place] [address] Manufacturing Process Engineer Post Acute Care 09/20/24 Team Status: Active [...] October 04, 2024 End: October 04, 2024 Major League Baseball Player Relationship Specialty Start Date End Date Tasha Deutsch, COOPERATIVE EDUCATION COORDINATOR.PROPERTY ADJUSTER [address] [place] [address] PCP - General Family Medicine 04/05/24 Behzad Dorado [address] [place] [address] Referring Internal Medicine 09/17/24 Tasha Deutsch, COOPERATIVE EDUCATION COORDINATOR.PROPERTY ADJUSTER [address] [place] [address] Home Care Provider Family Medicine 09/17/24 Mack Brito, JESIKA [address] [place], [place] [id number] Manufacturing Process Engineer Post Acute Care 09/20/24 [employer] League Baseball Player Relationship Specialty Start Date End Date Tasha Deutsch COOPERATIVE EDUCATION COORDINATOR.PROPERTY ADJUSTER [address] [place] [address] PCP - General Family Medicine 04/05/24 Behzad Dorado [address] [place] [address] Referring Internal Medicine 09/17/24 Tasha Deutsch, COOPERATIVE EDUCATION COORDINATOR.PROPERTY ADJUSTER [address] [place] [address] Home Care Provider Family Medicine 09/17/24 Mack Brito, JESIKA [address] [place], [place] [id number] Manufacturing Process Engineer Post Acute Care 09/20/24 [employer] League Baseball Player Relationship Specialty Start Date End Date Tasha Deutsch, COOPERATIVE EDUCATION COORDINATOR.PROPERTY ADJUSTER [address] [place] [address] PCP - General Family Medicine 04/05/24 Behzad Dorado [address] [place] [address] Referring Internal Medicine 09/17/24 Tasha Deutsch COOPERATIVE EDUCATION COORDINATOR.PROPERTY ADJUSTER [address] [place] [address] Home Care Provider Family Medicine 09/17/24 Mack Brito RN [address] [place], [place] [id number] Manufacturing Process Engineer Post Acute Care 09/20/24 [employer] League Baseball Player Relationship Specialty Start Date End Date Tasha Deutsch COOPERATIVE EDUCATION COORDINATOR.PROPERTY ADJUSTER [address] [place] [address] PCP - General Family Medicine 04/05/24 Behzad Dorado [address] [place] [address] Referring Internal Medicine 09/17/24 Tasha Deutsch COOPERATIVE EDUCATION COORDINATOR.PROPERTY ADJUSTER [address] [place] [address] Home Care Provider Family Medicine 09/17/24 Mack Brito RN [address] [place], [place] [id number] Manufacturing Process Engineer Post Acute Care 09/20/24 [employer] League Baseball Player Relationship Specialty Start Date End Date Tasha Deutsch COOPERATIVE EDUCATION COORDINATOR.PROPERTY ADJUSTER [address] [place] [address] PCP - General Family Medicine 04/05/24 Behzad Dorado [address] [place] [address] Referring Internal Medicine 09/17/24 Tasha Deutsch COOPERATIVE EDUCATION COORDINATOR.PROPERTY ADJUSTER [address] [place] [address] Home Care Provider Family Medicine 09/17/24 Mack Brito, JESIKA [address] [place] [address] Manufacturing Process Engineer Post Acute Care 09/20/24 Major League Baseball Player Relationship Specialty Start Date End Date Tasha Deutsch APRN.PROPERTY ADJUSTER [address] [place], [place] [address] PCP - General Family Medicine 04/05/24 Behzad Dorado [address] [place] [address] Referring Internal Medicine 09/17/24 Tasha Deutsch APRN.PROPERTY ADJUSTER [address] [place], [place] [id number] Home Care Provider Family Medicine 09/17/24 Mack Brito, JESIKA [address] [place] [address] Manufacturing Process Engineer Post Acute Care 09/20/24 Team Status: Active [...] Amandeep 2024 End: August 22, 2024 Dr. iLu Woody MD Other Provider Active Start: August [...] Member Role/Relationship Status Dates Tasha Suppsamantha , INSIDE SALES ADVISOR Primary Care Provider Active Start: August 19, 2024 Dr. Cricket Leyva MD Attending Provider Active Start: August 19, 2024 Team Status: Active Member Role/Relationship Status Dates Tasha Suppan , INSIDE SALES ADVISOR Primary Care Provider Active Start: August 19, [...] Active Start: August 19, 2024 Dr. Addy uNno MD Other Provider Active St art: August [...] Harley Nunez MD Other Provider Active Start: [place] 2024 Dr. Liu Wooyd MD Other Provider Active Start: August 20, [...] Harley Nunez MD Other Provider Active Start: [place] 2024 Dr. Liu Woody MD Other Provider [...] Member Role/Relationship Status Dates Tasha Deutsch , INSIDE SALES ADVISOR Primary Care Provider Active Start: August 22, [...] Harley Nunez MD Other Provider Active Start: [facility] 2024 Dr. Liu Woody MD Other Provider [...] Member Role/Relationship Status Dates Tasha Deutsch , INSIDE SALES ADVISOR Primary Care Provider Active Start: August 22, 2024 End: September 19, 2024 Dr. Behzad Dorado , DO Admit Provider Active Start: August 22, 2024 End: September 19, 2024 Dr. Behzad Dorado , DO Attending Provider Act basilio Start: August 22, 2024 End: September 19, 2024 Team Status: Active Member Role/Relationship Status Dates Tasha Deutsch , INSIDE SALES ADVISOR Primary Care Provider Active Start: August 23, 2024 Dr. Behzad Dorado DO Admit Provider Active Start: August 23, 2024 Dr. Behzad Dorado , DO Attending Provider Act basilio Start: August 23, 2024 Dr. Behzad Dorado DO Other Provider Active Start: August 23, 2024 Team Status: Active Member Role/Relationship Status Dates Tasha Deutsch , INSIDE SALES ADVISOR Primary Care Provider Active Start: August 26, 2024 Dr. Behzad Dorado , Admit Provider Active Start: August 26, 2024 Dr. Behzad Dorado , DO Attending Provider Act basilio Start: August 26, 2024 Dr. Behzad Dorado , DO Other Provider Active Start: August 26, 2024 Team Status: Active Member Role/Relationship Status Dates Tasha Deutsch , INSIDE SALES ADVISOR Primary Care Provider Active Start: August 30, 2024 Dr. Behzad Dorado , DO Admit Provider Active Start: August 30, 2024 Dr. Behzad Dorado , DO Attending Provider Act basilio Start: August 30, 2024 Dr. Behzad Dorado , DO Other Provider Active Start: August 30, 2024 Team Status: Active Member Role/Relationship Status Dates Tasha Suppan , INSIDE SALES ADVISOR Primary Care Provider Active Start: August 31, 2024 Dr. Behzad Dorado DO Admit Provider Active Start: August 31, 2024 Dr. Behzad Dorado , DO Attending Provider Act basilio Start: August 31, 2024 Dr. Behzad Dorado , DO Other Provider Active Start: August 31, 2024 Team Status: Active Member Role/Relationship Status Dates Tasha Deutsch , INSIDE SALES ADVISOR Primary Care Provider Active Start: September 02, 2024 Dr. Behzad Dorado , DO Admit Provider Active Start: September 02, 2024 Dr. Behzad Dorado , DO Attending Provider Act basilio Start: September 02, 2024 Dr. Behzad Dorado , DO Other Provider Active Start: September 02, 2024 Team Status: Active Member Role/Relationship Status Dates Tasha Suppan , INSIDE SALES ADVISOR Primary Care Provider Active Start: September 05, 2024 Dr. Behzad Dorado , DO Admit Provider Active Start: September 05, 2024 Dr. Behzad Dorado , DO Attending Provider Act basilio Start: September 05, 2024 Dr. Behzad Dorado , DO Other Provider Active Start: September 05, 2024 Team Status: Active Member Role/Relationship Status Dates Tasha Deutsch , INSIDE SALES ADVISOR Primary Care Provider Active Start: September 07, 2024 Dr. Behzad Dorado , DO Admit Provider Active Start: September 07, 2024 Dr. Behzad Dorado , DO Attending Provider Act basilio Start: September 07, 2024 Dr. Behzad Dorado , DO Other Provider Active Start: September 07, 2024 Team Status: Active Member Role/Relationship Status Dates Tasha Deutsch , INSIDE SALES ADVISOR Primary Care Provider Active Start: September 09, 2024 Dr. Behzad Dorado , DO Admit Provider Active Start: September 09, 2024 Dr. Behzad Dorado , DO Attending Provider Act basilio Start: September 09, 2024 Dr. Behzad Dorado , DO Other Provider Active Start: September 09, 2024 Team Status: Active Member Role/Relationship Status Dates Tasha Suppan , INSIDE SALES ADVISOR Primary Care Provider Active Start: September 13, 2024 Dr. Behzad Dorado , DO Admit Provider Active Start: September 13, 2024 Dr. Behzad Dorado , DO Attending Provider Act basilio Start: September 13, 2024 Dr. Behzad Dorado , DO Other Provider Active Start: September 13, 2024 Team Status: Active Member Role/Relationship Status Dates Tasha Suppan , INSIDE SALES ADVISOR Primary Care Provider Active Start: September 14, 2024 Dr. Behzad Dorado , Admit Provider Active Start: September 14, 2024 Dr. Behzad Dorado DO Attending Provider Act basilio Start: September 14, 2024 Dr. Behzad Dorado , DO Other Provider Active Start: September 14, 2024 Team Status: Active Member Role/Relationship Status Dates Tasha Deutsch , INSIDE SALES ADVISOR Primary Care Provider Active Start: September 16, 2024 Dr. Behzad Dorado , Admit Provider Active Start: September 16, 2024 Dr. Behzad Dorado DO Attending Provider Act basilio Start: September 16, 2024 Dr. Behzad Dorado DO Other Provider Active Start: September 16, 2024 Team Status: Active Member Role/Relationship Status Dates Tasha Suppan , INSIDE SALES ADVISOR Primary Care Provider Active Start: September 18, 2024 Dr. Behzad Dorado DO Admit Provider Active Start: September 18, 2024 Dr. Behzad Dorado DO Attending Provider Act basilio Start: September 18, 2024 Dr. Behzad Dorado DO Other Provider Active Start: September 18, 2024 Team Status: Inactive Member Role/Relationship Status Dates Tasha Suppan , INSIDE SALES ADVISOR Primary Care Provider Active Start: October 04, 2024 End: October 04, 2024 Tasha Suppan , INSIDE SALES ADVISOR Referring Provider Active Start: October 04, 2024 End: October 04, 2024 ANDIE Serrato Attending Provider Active S tart: October 04, 2024 End: October 04, 2024 Team Status: Inactive Member Role/Relationship Status Dates Tasha Suppan , INSIDE SALES ADVISOR Primary Care Provider Active Start: October 12, 2024 End: October 12, 2024 Tasha Suppan , INSIDE SALES ADVISOR Referring Provider Active Start: October 12, 2024 End: October 12, 2024 Dr. Circket Leyva MD Attending Provider Active Start: October 12, 2024 End: October 12, 2024 Major League Baseball Player Relationship Specialty Start Date End Date Tasha Deutsch APRN.CNP [address] [place] [address] PCP - General Family Medicine 04/05/24 Behzad Dorado [address] [place] [address] Referring Internal Medicine 09/17/24 Tasha Deutsch, COOPERATIVE EDUCATION COORDINATOR.PROPERTY ADJUSTER [address] [place] [address] Home Care Provider Family Medicine 09/17/24 Mack Brito RN [address] [place], [place] [id number] Manufacturing Process Engineer Post Acute Care 09/20/24 [employer] League Baseball Player Relationship Specialty Start Date End Date Tasha Deutsch COOPERATIVE EDUCATION COORDINATOR.PROPERTY ADJUSTER [address] [place] [address] PCP - General Family Medicine 04/05/24 Behzad Dorado [address] [place] [address] Referring Internal Medicine 09/17/24 Tasha Deutsch COOPERATIVE EDUCATION COORDINATOR.PROPERTY ADJUSTER [address] [place] [address] Home Care Provider Family Medicine 09/17/24 Mack Brito RN [address] [place], [place] [id number] Manufacturing Process Engineer Post Acute Care 09/20/24 Team Status: Inactive Member Role/Relationship Status Dates GARFIELD Maldonado Primary Care Provider Active Start: October 18, 2024 End: October 18, 2024 Dr. Mihai Woods DO Emergency Provider Active Start: October 18, 2024 End: October 18, 2024 Major League Baseball Player Relationship Specialty Start Date End Date Tasha Deutsch COOPERATIVE EDUCATION COORDINATOR.PROPERTY ADJUSTER [address] [place] [address] PCP - General Family Medicine 04/05/24 Behzad Dorado [address] [place] [address] Referring Internal Medicine 09/17/24 Tasha Deutsch COOPERATIVE EDUCATION COORDINATOR.PROPERTY ADJUSTER [address] [place] [address] Home Care Provider Family Medicine 09/17/24 Mack Brito, JESIKA [address] [facility], [place] [id number] Manufacturing Process Engineer Post Acute Care 09/20/24 10/17/24 [employer] League Baseball Player Relationship Specialty Start Date End Date Tasha Deutsch COOPERATIVE EDUCATION COORDINATOR.PROPERTY ADJUSTER [address] [place] [address] PCP - General Family Medicine 04/05/24 Behzad Dorado [address] [place] [address] Referring Internal Medicine 09/17/24 Tasha Deutsch COOPERATIVE EDUCATION COORDINATOR.PROPERTY ADJUSTER [address] [place] [address] Home Care Provider Family Medicine 09/17/24 [employer] League Baseball Player Relationship Specialty Start Date End Date Tasha Deutsch COOPERATIVE EDUCATION COORDINATOR.PROPERTY ADJUSTER [address] [place] [address] PCP - General Family Medicine 04/05/24 Behzad Dorado [address] [place] [address] Referring Internal Medicine 09/17/24 Tasha Deutsch COOPERATIVE EDUCATION COORDINATOR.PROPERTY ADJUSTER [address] [place] [address] Home Care Provider Family Medicine 09/17/24 [employer] League [employer] Player Relationship Specialty Start Date End Date Tasha Deutsch COOPERATIVE EDUCATION COORDINATOR.PROPERTY ADJUSTER [address] [place] [address] PCP - General Family Medicine 04/05/24 Behzad Dorado [address] [place] [phone] Referring Internal Medicine 09/17/24 Tasha Deutsch, COOPERATIVE EDUCATION COORDINATOR.PROPERTY ADJUSTER [address] [place] [address] Home Care Provider Family Medicine 09/17/24 [employer] League Baseball Player Relationship Specialty Start Date End Date Tasha Deutsch COOPERATIVE EDUCATION COORDINATOR.PROPERTY ADJUSTER [address] [facility] [place] [address] PCP - General Family Medicine 04/05/24 Behzad Dorado [address] [place] [address] Referring Internal Medicine 09/17/24 Tasha Deutsch, COOPERATIVE EDUCATION COORDINATOR.PROPERTY ADJUSTER [address] [facility] [place] [address] Home Care Provider Family Medicine 09/17/24 Major League Baseball Player Relationship Specialty Start Date End Date [facility] Cardiac Respiration, Other [address] [facility] [place] [address] PCP - General 10/20/24 [employer] League Baseball Player Relationship Specialty Start Date End Date Tasha Deutsch COOPERATIVE EDUCATION COORDINATOR.PROPERTY ADJUSTER [address] [facility] [place] [address] PCP - General Family Medicine 04/05/24 Behzad Dorado [address] [place] [address] Referring Internal Medicine 09/17/24 Tasha Deutsch COOPERATIVE EDUCATION COORDINATOR.PROPERTY ADJUSTER [address] [place] [address] Home Care Provider Family Medicine 09/17/24 [employer] League Baseball Player Relationship Specialty Start Date End Date Tasha Deutsch COOPERATIVE EDUCATION COORDINATOR.PROPERTY ADJUSTER [address] [place] [address] PCP - General Family Medicine 04/05/24 Behzad Dorado [address] [place] [phone] Referring Internal Medicine 09/17/24 Tasha Deutsch COOPERATIVE EDUCATION COORDINATOR.PROPERTY ADJUSTER [address] [place] [address] Home Care Provider Family Medicine 09/17/24 [employer] League [employer] Player Relationship Specialty Start Date End Date Tasha Deutsch COOPERATIVE EDUCATION COORDINATOR.PROPERTY ADJUSTER [address] [place] [address] PCP - General Family Medicine 04/05/24 Behzad Dorado [address] [facility] [place] [phone] Referring Internal Medicine 09/17/24 Tasha Deutsch, COOPERATIVE EDUCATION COORDINATOR.PROPERTY ADJUSTER [address] [place] [address] Home Care Provider Family Medicine 09/17/24 Mack Brito, RN [address] [place] [address] Manufacturing Process Engineer Post Acute Care 09/20/24 10/17/24 Goals (unrecognized [...] Provider: Neal Alejandro RCP)1627 (Given - Provider: Nela Alejandro RCP) Melatonin tablet 6 mg 6 [...] 1 g, Intravenous, Administer over 15 Minutes, POWER BENDER OPERATOR TO PROCEDURE, 1 dose, Starting on Fri11/12/24 [...] BE BASED ON THE PRIMARY CLINICAL RECORDS. [employer] [email or web address]. provides no warranty or guarantee of the accuracy or completeness of information in this document.
--- NOTE | 2025-02-20 16:58 | DS.PCM_ITS ---
Providers Date of Admission: 02/20/25 Date of Discharge: 02/20/25 Primary Care Physician: Tasha Deutsch, [employer] Consultations 02/20/25 08:38 Consult: Tele-Neurology Routine Consulting Provider: [facility] Reason for Consult: Acute stroke EMERGENT Consult: No MD Notified: Yes Date Notified: 02/20/25 Time Notified: 08:39 Method of Notification: Answering Service Nursing Unit Staff Notify [facility] of Tele-Neurology Consult: Yes 02/20/25 11:13 Consult: Hospice / Outpatient Palliative Care Routine Consulting Provider: [facility] Reason for Consult: 3rd stroke since August, can't follow commands, can't communicate, end of life EMERGENT Consult: No MD Notified: Yes Date Notified: 02/20/25 Time Notified: 11:33 Method of Notification: Answering Service Comments:: Family is here, they are agreeable to DNRCC and hospice Reason For Visit: CVA Diagnosis Discharge Diagnosis (1) Stroke: Status: Acute Code(s): I63.9 - Cerebral infarction, unspecified Plan # New left-sided weakness, worsened dysarthria, decreased mental status with right [employer] occlusion at level of distal P1 segment # History of hemorrhagic and ischemic CVAs # History of anxiety Medications at Discharge Home Medications atorvastatin 40 mg tablet 40 mg feeding tube QHS cholesterol 10/12/24 aspirin 81 mg chewable tablet (Aspirin Childrens) 1 tab feeding tube DAILY 02/20/25 buspirone 5 mg tablet 5 mg PO BID 02/20/25 buspirone 5 mg tablet 5 mg PO QHS 02/20/25 cholecalciferol (vitamin D3) 25 mcg (1,000 unit) tablet 50 mcg feeding tube DAILY 02/20/25 lactose-reduced food-fiber 0.07 gram-1.5 kcal/mL liquid for tube feed (Isosource 1.5 Richard) ml 02/20/25 melatonin 3 mg tablet 3 mg feeding tube QHS insomnia 02/20/25 metoprolol tartrate 25 mg tablet 25 mg feeding tube BID 02/20/25 Hospital Course Summary of Care Provided Hospital Course: Per HPI: "BEHZAD HAY, is a 85 F with a history of paroxysmal atrial fibrillation, ischemic CVA in August and 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 In the ED temp 97.5, heart rate 72, blood pressure 166/105, pulse ox 97% on room air. White count 7.9 with hemoglobin 11.9, platelet count 316, BMP with normal potassium, BUN of 25 and creatinine 0.89, troponin of 22.. CT brain showed ill-defined cortical/subcortical hypodense area in medial aspect of right temporal and occipital lobes probably acute ischemia in the territory of the right [employer] with no hemorrhagic shift or midline shift, CTA head and neck showed complete occlusion of the right posterior cerebral artery at level of distal P1 segment not present on prior exam. [facility] contacted but patient not a candidate for thrombectomy given the occlusion location and patient outside of TNK window so hospitalist contacted for admission. Patient evaluated with her son and [id number] at bedside. The patient had been at [facility] after her hemorrhagic stroke and had tube feeds and was just starting to do some puréed foods, reportedly speech never went back to baseline. Patient completely unable to answer questions or participate in exam, seem to attempt to follow commands with squeezing hand but was unable to actually do so, only 1 time mumbled unintelligibly but otherwise was unable to have any meaningful interaction" INTERVAL HISTORY: Met with patient's son and daughter, daughter is medical power of contract attorney. Discussed patient's recent health complications as well as current stroke, after discussion they would like to proceed with DNR CC and hospice consult. Discussed with patient's nurse, hospice consult placed, comfort orders placed. Hospice evaluated and patient felt appropriate for inpatient hospice unit, discharged to inpatient hospice 02/20/2025 Weight / BMI Weight Weight: 51.8 kg Body Mass Index (BMI) 20.9 ABG / Lab / Microbiology Data 02/20/25 05:10 02/20/25 05:10 Laboratory: Laboratory Results - last 24 hr 02/20/25 05:10: WBC 7.9, RBC 4.01 L, Hgb 11.9 L, Hct 38.5, MCV 96.0, MCH 29.7, M CHC 30.9 L, RDW Std Deviation 48.0 H, RDW Coeff of [place] 13.4, Plt Count 316, MPV 9.4, Immature Gran % (Auto) 0.300, Neut % (Auto) 66.4, Lymph % (Auto) 16.8 L, [place] % (Auto) 8.6, Eos % (Auto) 6.2 H, Baso % (Auto) 1.7 H, Absolute Neuts (auto) 5.2, Absolute Lymphs (auto) 1.32, Nucleated RBC % 0, PT 13.5, INR 1.0, APTT 25.9, Sodium 140, Potassium 4.4, Chloride 105, Carbon Dioxide 27.2, Anion Gap 8, BUN 25 H, Creatinine 0.89, Estim Creat Clear Calc 35.22 L, Est GFR (MDRD) Non-Af 63, BUN/Creatinine Ratio 28.1 H, Glucose 104 H, Calcium 9.5, Troponin T High Sens 22 H D 02/20/25 07:16: Troponin T Hi Sens 2 Hr 30 H Radiography Diagnostic Testing: Radiology Impression Brain CT 02/20/25 05:09 IMPRESSION: Interval appearance of ill-defined cortical/subcortical hypodense area in the medial aspects of the right temporal and occipital lobes measuring 7.4 x 2.5 cm, probably acute ischemia in the territory of the right posterior cerebral artery. No associated hemorrhagic changes or midline shift. Findings were discussed with Dr. Tati Rice at 5:28 am EST. Reading [facility] Head/Neck CTA 02/20/25 05:10 IMPRESSION: Complete occlusion of the right posterior cerebral artery at the level of the distal P1 segment, not present on the prior exam. Atherosclerosis without high-grade stenosis in the cervical segments of the internal carotid arteries. I discussed the findings with Dr. Tati Rice in the emergency department at 6 a.m. EST. Reading Location: [place] [address] Chest X-Ray 02/20/25 05:50 IMPRESSION: No evidence for acute abnormality. Reading Location: [place] [address] D/C Instructions DC O2, CPAP, BIPAP Needs Home O2 Discharge instructions: No Meaningful Use Info Meaningful Use Meaningful Use Diagnoses (Choose all that apply): Ischemic CVA CVA Therapy Assessed for PT,OT and/or ST?: No Reason therapy not assessed?: Hospice Ischemic Stroke Antithrombotic order at d/c?: No Reason antithrombotic not ordered: Hospice Dx of Atrial fib/flutter?: Yes Anticoagulant at discharge?: No Reason anticoagulant not ordered: Hospice Statins at discharge?: No Reason Statin not ordered: Hospice Primary Dx Acute Ischemic CVA?: Yes Discharge Plan Admission Admit Date/Time: 02/20/25 07:49 Attending Provider: Angela Salas Primary Care Provider: Tasha Deutsch Consulting Providers: Harley Nunez; Liu Woody; Isa Cruz; Maki López; Janice Ledesma; Jeronimo Trujillo; Maureen Townsend; Efraín Alexis; Lc Salazar; Pravin Lehman; Leticia Graham; Tyra Bains; Ousmane Cantu; Maggie Collins; Bernabe Foreman; Zoya Alford; Addy Nuno; Melany Henderson; Orlin Ham; Mayra Mar; Luc Machuca; Art Jackson; Alise Payne; Jazmyne Harding; Melyssa Ayala; Judith Anne NP; Coreen Newman Discharge Orders/Prescriptions Prescriptions: No Action atorvastatin 40 mg tablet 40 mg feeding tube QHS Isosource 1.5 Richard 0.07 gram-1.5 kcal/mL liquid Rx Instructions: 62 ml/hr x 12 hours nocturnal, on at 6pm, off at 6 am aspirin [Aspirin Childrens] 81 mg tablet,chewable 1 tab feeding tube DAILY buspirone 5 mg tablet 5 mg PO BID buspirone 5 mg tablet 5 mg PO QHS melatonin 3 mg tablet 3 mg feeding tube QHS metoprolol tartrate 25 mg Tablet 25 mg feeding tube BID cholecalciferol (vitamin D3) 25 mcg (1,000 unit) Tablet 50 mcg feeding tube DAILY Referrals / Follow Up: Tasha Deutsch, [employer]PER [Primary Care Provider, Family Practice] Disposition Disposition (needs filled in before D/C Order can be placed): Hospice in Medical Facility
--- NOTE | 2025-02-20 17:59 | NURSING ---
Report called to student development coordinator at this time.
== END 2025-02-20 18:17 | disposition hospice, inpatient (51) | DRG 66 ==
LOC: ED 06:52 → PCU 12:36
PROVIDERS: Admitting Provider Internal Medicine; Emergency Provider Specialist/Technologist Athletic Trainer; PCP Clinical Nurse Specialist Adult Health; Visit Provider Internal Medicine
DX: I63.9 Cerebral infarction, unspecified (principal); R29.713 NIHSS score 13; Z66 Do not resuscitate; F03.90 Unspecified dementia, unspecified severity, without behavioral disturbance, psychotic disturbance, mood disturbance, and anxiety; I10 Essential (primary) hypertension; I48.0 Paroxysmal atrial fibrillation; E78.5 Hyperlipidemia, unspecified; Z79.02 Long term (current) use of antithrombotics/antiplatelets; Z79.899 Other long term (current) drug therapy; Z79.82 Long term (current) use of aspirin; Z96.643 Presence of artificial hip joint, bilateral; Z98.41 Cataract extraction status, right eye; Z98.42 Cataract extraction status, left eye
CPT/HCPCS: 70450; 70496; 70498; 71045; 80048; 84484; 85025; 85610; 85730; 92523; 92610; 93005; 97802; 99285; Q9967; A4216